=== PATIENT | female | born 1970 | race Caucasian/White ===

== ENCOUNTER 2019-08-26 15:40 | Outpatient (CLI) | payer MEDICARE, SELFPAY ==
[2019-08-26 16:03] LABS: Basophils Absolute Auto 0.1 K/mm3 (0.0-0.1); Basophils Percent Auto 0.5 % (0.2-1.2); Eosinophils Absolute Auto 0.1 K/mm3 (0-0.3); Eosinophils Percent Auto 0.4 % (0-4.4); Hematocrit 44.2 % (37.0-47.0); Hemoglobin 13.9 g/dL (12.0-15.0); Immature Granulocyte Absolute 0.05 K/mm3 (0.00-0.031); Immature Granulocyte Percent A 0.4 % (0-0.5); Lymphocytes Absolute Auto 7.48 K/mm3 (0.9-3.2); Lymphocytes Percent Auto 53.8 % (18.3-44.2); Mean Corpuscular HGB Conc 31.4 g/dl (32-36); Mean Corpuscular Hemoglobin 27.7 pg (26-34); Mean Corpuscular Volume 88.2 fl (80-100); Mean Platelet Volume 8.9 fl (7.4-10.4); Monocytes Absolute Auto 1.1 K/mm3 (0.1-0.6); Monocytes Percent Auto 7.9 % (2.6-8.5); Neutrophils Absolute Auto 5.1 K/mm3 (1.3-6.7); Platelet Count Result 350 k/mm3 (150-375); Red Blood Count 5.01 M/mm3 (4.2-5.4); Red Cell Distribution Width 15.8 % (11.5-14.5); White Blood Count 13.9 K/mm3 (4.5-10.0)
[2019-08-26 16:08] LABS: Atypical Lymphocytes Present; Platelet Estimate Adequate (Adequate)
[2019-08-26 16:49] LABS: Alanine Aminotransferase 32 U/L (4-35); Albumin Level 4.4 g/dL (3.5-5.1); Alkaline Phosphatase 118 U/L (38-126); Aspartate Amino Transferase 33 U/L (14-36); Bilirubin,Total 0.3 mg/dL (0.2-1.3); Blood Urea Nitrogen 16 mg/dL (7-17); CRP 0.6 mg/dL (<1.0); Calcium 9.7 mg/dL (8.4-10.2); Carbon Dioxide 23 mmol/L (22-30); Chloride 97 mmol/L (98-107); Estimated Glomerular Filt Rate > 60; Glucose 90 mg/dL (65-105); Lactate Dehydrogenase 485 U/L (313-618); Potassium 4.1 mmol/L (3.4-5.0); Sodium 134 mmol/L (137-145)
[2019-08-26 16:56] LABS: Erythrocyte Sedimentation Rate 15 mm/hr (0-20)
[2019-08-26 19:10] LABS: Iron 53 ug/dL (37-170)
[2019-08-26 19:33] LABS: Percent Iron Saturation 10 % (20-50)
== END 2019-08-26 15:41 | disposition home or self-care (01) ==
PROVIDERS: PCP Registered Nurse; Visit Provider Internal Medicine Hematology & Oncology
DX: D72.829 Elevated white blood cell count, unspecified (principal); R79.89 Other specified abnormal findings of blood chemistry
CPT/HCPCS: 36415; 80053; 82728; 83540; 83550; 83615; 85025; 85652; 86140; 88184

== ENCOUNTER → 2020-08-09 13:18 | Outpatient (CLI) | payer MEDICARE, SELFPAY ==
--- NOTE | ~2020-08-09 | MM_ITS ---
EXAMINATION: MM screening miguel angel BI w ivan HISTORY: Screening mammogram TECHNIQUE: Craniocaudal and mediolateral oblique 3-D tomosynthesis images were obtained and synthetic 2-D images were generated. CAD analysis was submitted and interpreted. COMPARISON: bilateral digital screening mammogram BREAST PARENCHYMAL COMPOSITION: The breasts are almost entirely fatty. FINDINGS: There is no evidence of suspicious mass, calcification, or architectural distortion to sugg est malignancy in either breast. There has been no suspicious interval change. IMPRESSION: 1. No mammographic evidence of malignancy. 2. Recommend routine screening mammography in one year. BI-RADS Category 1: Negative Reviewed, dictated and finalized at location A. OROLOGICAL ENGINEER
== END ==
PROVIDERS: PCP Registered Nurse; Visit Provider Registered Nurse
DX: Z12.31 Encounter for screening mammogram for malignant neoplasm of breast (principal)
CPT/HCPCS: 77063; 77067

== ENCOUNTER 2021-04-18 14:09 | Emergency (ER) | payer MEDICARE, SELFPAY ==
[2021-04-18 14:23] VITALS: BP 113/92; PULSE 95; RESP 18; TEMP 35.7; O2SAT 100
--- NOTE | 2021-04-18 14:32 | ED.UPPEXIN ---
HPI - Extremity Injury (Upper) General Chief Complaint: Extremity Injury, Upper Stated Complaint: Shoulder Pain Source: patient and RN notes reviewed Limitations: no limitations History of Present Illness HPI narrative: The right-handed overweight patient, on several meds including for diabetes, presents with right shoulder pain. Patient states she has a 7-day history, gradual onset upon awakening of right shoulder pain is mild, worse with motion, better at rest located mostly at the scapula. She attributes pain to carrying her grandchildren. No neck pain, fever, gait changes, numbness/weakness, but there is some radiation upward and distally. Related Data Home Medications Medication Instructions Recorded Confirmed bupropion HCl 150 mg PO DAILY 04/18/21 04/18/21 hydrochlorothiazide 25 mg PO DAILY 04/18/21 04/18/21 levonorgestrel-ethinyl estrad 1 tablet PO DAILY 04/18/21 04/18/21 [Larissia] lorazepam 1 mg PO BID 04/18/21 04/18/21 metformin See Rx Instructions .ROUTE .COMPLEX 04/18/21 04/18/21 venlafaxine 75 mg PO DAILY 04/18/21 04/18/21 zolpidem 04/18/21 Allergies Allergy/AdvReac Type Severity Reaction Status Date / Time No Known Allergies Allergy Mild Verified 09/09/09 14:08 Review of Systems Review of Systems: General/Constitutional: No weight loss,fever Eyes: N0: Redness,discharge Ears/Nose/Throat: No: Epistaxis,ear discharge Respiratory: Denies: Hemoptysis Gastrointestinal: No Vomiting, Bleeding-rectal Skin: No Lumps, eruption Neurologic: No Focal Weakness,Sz Hematologic: Denies: Petechiae/Purpura Psychiatric: No: Suicida ideationl All Other Systems: Reviewed and Negative PMFSH Comments At time of signature, agree with nursing past medical, surgical, social and family history. There is no relevant family history pertinent to the presenting complaint Exam Narrative: General Appearance: Overweight/well nourished, Conjunctiva clear Mouth/Throat: Normal appearing, Normal lips,: Supple Respiratory: Airway patent, No respiratory distress MS-shoulder: Normal strength (mostly intact, almost unlimited flexion/extension, Ir/ER by pain), Tenderness (rhomboid , with mild decreased ROM), Skin: Warm, Dry, Normal color; no AC or deltoid tenderness Neurological: A&O x3, Speech clear, CN II-XII intact Psychiatric: Normal mood, Normal affect Course Vital Signs Vital signs: Vital Signs Temperature 96.2 F L 04/18/21 14:23 Pulse Rate 95 04/18/21 14:23 Respiratory Rate 18 04/18/21 14:23 Blood Pressure 113/92 H 04/18/21 14:23 Pulse Oximetry 100 04/18/21 14:23 Temperature 96.2 F L 04/18/21 14:23 Pulse Rate 95 04/18/21 14:23 Respiratory Rate 18 04/18/21 14:23 Blood Pressure 113/92 H 04/18/21 14:23 Pulse Oximetry 100 04/18/21 14:23 Discharge Plan Discharge Clinical Impression: Left shoulder strain Qualifiers: Encounter type: initial encounter Qualified Code(s): S46.912A - Strain of unspecified muscle, fascia and tendon at shoulder and upper arm level, left arm, initial encounter Patient Disposition: Home, Self-Care Condition: Stable Instructions: Shoulder Bursitis (ED) Additional Instructions: Also try provided shoulder/rhomboid exercises Prescriptions: New prednisone 20 mg tablet 60 mg PO DAILY Qty: 15 RF: 0 acetaminophen-codeine 300-30 mg tablet 1 - 1.5 tablet PO HS PRN (Reason: pain) Qty: 10 RF: 0 No Action metformin 500 mg tablet See Rx Instructions .ROUTE .COMPLEX RF: 0 bupropion HCl 150 mg tablet sustained-release 12 hr 150 mg PO DAILY RF: 0 venlafaxine 75 mg capsule,extended release 24hr 75 mg PO DAILY RF: 0 levonorgestrel-ethinyl estrad [Larissia] 0.1-20 mg-mcg tablet 1 tablet PO DAILY RF: 0 hydrochlorothiazide 25 mg tablet 25 mg PO DAILY RF: 0 lorazepam 1 mg tablet 1 mg PO BID RF: 0 zolpidem 10 mg tablet RF: 0 Follow-up/Referrals: Patti,NEVAEH Newby [Primary Care Provider]
== END 2021-04-18 14:40 | disposition home or self-care (01) ==
PROVIDERS: Emergency Provider Emergency Medicine; PCP Registered Nurse
DX: S46.911A Strain of unspecified muscle, fascia and tendon at shoulder and upper arm level, right arm, initial encounter (principal); X50.0XXA Overexertion from strenuous movement or load, initial encounter; I10 Essential (primary) hypertension; Z98.84 Bariatric surgery status; F41.9 Anxiety disorder, unspecified; F32.9 Major depressive disorder, single episode, unspecified
CPT/HCPCS: 99213; G0463

== ENCOUNTER 2021-05-09 11:04 | Emergency (ER) | payer MEDICARE, SELFPAY ==
--- NOTE | ~2021-05-09 | XR_ITS ---
EXAMINATION: XR shoulder RT min 2V DATE: 05/09/2021 11:32 INDICATION: Right shoulder pain TECHNIQUE: AP internally and externally rotated, AP oblique externally rotated and axillary views of the right shoulder were obtained. COMPARISON: None FINDINGS: Normal alignment. No fracture.Minimal right glenohumeral and acromioclavicular osteoarthritis with t iny marginal osteophytes along the inferior aspect of the humeral head. Soft tissues are unremarkable . Visualized portions of the lungs are clear. Mild to moderate uncovertebral and facet osteoarthritis at the right side of the lower cervical spine. IMPRESSION: Minimal right acromioclavicular and glenohumeral osteoarthritis. No acute osseous abnormality. Reviewed, dictated and finalized at location A. IMPRESSION: Minimal right acromioclavicular and glenohumeral osteoarthritis. No acute osseo us abnormality.
[2021-05-09 11:12] VITALS: BP 111/69; PULSE 110; RESP 18; TEMP 35.6; O2SAT 100
--- NOTE | 2021-05-09 11:15 | ED.UPPEXIN ---
HPI - Extremity Injury (Upper) General Chief Complaint: Extremity Problem,Nontraumatic Stated Complaint: Shoulder Pain Time Seen by Provider: 05/09/21 11:15 Source: patient, RN notes reviewed and old records reviewed Mode of arrival: ambulatory Limitations: no limitations History of Present Illness HPI narrative: 50-year-old female presents to the [facility] with complaints of right shoulder pain. Patient states that she was seen a few weeks ago by And was told she had bursitis. Had been seeing a chiropractor was told she had degenerative disc disease in her neck and that is causing her shoulder pain. Has not seen her primary care provider. States that nobody is done an x-ray and was concerned. Has decreased range of motion. Able to raise arm 90 degrees both anterior and lateral. Full range of motion of the wrist and the elbow. Positive radial pulse. Sensation intact in all 5 fingers. Related Data Home Medications Medication Instructions Recorded Confirmed bupropion HCl 150 mg PO DAILY 04/18/21 04/18/21 hydrochlorothiazide 25 mg PO DAILY 04/18/21 04/18/21 levonorgestrel-ethinyl estrad 1 tablet PO DAILY 04/18/21 04/18/21 [Larissia] lorazepam 1 mg PO BID 04/18/21 04/18/21 metformin See Rx Instructions .ROUTE .COMPLEX 04/18/21 04/18/21 venlafaxine 75 mg PO DAILY 04/18/21 04/18/21 zolpidem 04/18/21 Allergies Allergy/AdvReac Type Severity Reaction Status Date / Time No Known Allergies Allergy Mild Verified 05/09/21 11:17 Review of Systems Review of Systems: All systems reviewed & are unremarkable except as noted in HPI and below Constitutional: Constitutional: Reports no additional constitutional complaints Eyes: Eyes: Reports no additional eye complaints ENT: Reports system reviewed and no additional complaints, except as documented Cardiovascular: Cardiovascular: Reports no additional cardiovascular complaints Respiratory: Respiratory: Reports no additional respiratory complaints Musculoskeletal: Musculoskeletal: Reports as per HPI Comments: Right shoulder pain Integumentary/Breasts: Skin/Breast: Reports system reviewed and no additional complaints, except as docu, Denies erythema and Denies rash Neurologic: Reports system reviewed and no additional complaints, except as documented Psychiatric: Psychiatric: Reports no additional psychiatric complaints Allergic/Immunologic: Allergic/Immunologic: Reports no additional allergic/immunologic complaints PMFSH Past Medical History Medical History (Updated 05/09/21 @ 19:45 by Yaquelin Hammond) Anxiety and depression History of high blood pressure Social History Social History (Updated 05/09/21 @ 19:45 by Yaquelin Hammond) Living arrangements: with family Gender identity (if verbalized by the patient): Female Comments At the time of my signature, I reviewed and agree with the nursing past medical, surgical, social, and family history. There is no relevant family history pertinent to the patient complaint. Exam Const: General: no acute distress, alert and ill appearing chronically Nutritional Appearance: obese Orientation/consciousness: patient oriented x3 HENMT: Head: normal to inspection Eyes: Pupils: Equal, round and reactive pupils present Neck: Neck: normal visual inspection, no lymphadenopathy and no meningeal signs Chest: Chest palpation & inspection: normal inspection of the chest Resp: Effort & Inspection: normal respiratory effort and no use of accessory muscles Auscultation: clear to auscultation bilaterally, no crackles, no rales, no rhonchi and no wheezes Cardio: Rate: regular rate Rhythm: regular rhythm Back/Spine/Pelvis: Back: no CVA tenderness Skin: General skin exam: normal color Rashes: no rashes Wounds: no wounds Neuro: General: patient oriented x3, moves all extremities, no meningeal signs and no focal motor deficits Speech: normal speech Gait exam (Neuro): Normal gait present Extrem: General: normal to
== END 2021-05-09 11:55 | disposition home or self-care (01) ==
PROVIDERS: Emergency Provider Nurse Practitioner; PCP Registered Nurse
DX: M19.011 Primary osteoarthritis, right shoulder (principal); F41.9 Anxiety disorder, unspecified; F32.A Depression, unspecified
CPT/HCPCS: 73030; 99213; G0463

== ENCOUNTER 2021-11-26 18:56 | Emergency (ER) | payer MEDICARE, SELFPAY ==
--- NOTE | ~2021-11-26 | XR_ITS ---
EXAM: XR hip LT 2V w AP pelvis, XR femur LT min 2V HISTORY: Nontraumatic pain front of left hip and thigh COMPARISON: None available FINDINGS: Normal mineralization. No fracture or dislocation. No lytic or blastic lesion. Degenerativ e change in the lumbar spine. Mild superior joint space narrowing in the hips. No erosion or perioste al change. Soft tissues within normal limits. IMPRESSION: No acute osseous finding in the pelvis, left hip or left femur. Reviewed, dictated and finalized at location K. IMPRESSION: No acute osseous finding in the pelvis, left hip or left femur.
[2021-11-26 19:07] VITALS: BP 142/84; PULSE 102; RESP 14; TEMP 36.4; O2SAT 97
[2021-11-26] MEDS: HYDROcodone/acetaminophen (*CRX) 5-325 MG TABLET 1 TAB PO (19:28)
[2021-11-26] MEDS: IBUPROFEN 600 MG TABLET PO (19:28)
--- NOTE | 2021-11-26 20:13 | ED.LOWEXIN ---
HPI - Extremity Injury (Lower) General Chief Complaint: Extremity Injury, Lower Stated Complaint: left leg pain. Time Seen by Provider: 11/26/21 19:14 Source: patient Mode of arrival: ambulatory Limitations: no limitations History of Present Illness HPI Narrative: Patient is 51 years old white female been complaining of intermittent sharp stabbing pain at the middle of the right thigh anteriorly for over 1 year, no diagnosis. Today the symptom is back but did not go anywhere. She denies any fever, chills, nausea, vomiting, chest pain, shortness of breath or back pain or urinary symptoms. Patient also denies any trauma. Related Data Home Medications Medication Instructions Recorded Confirmed bupropion HCl 150 mg PO DAILY 04/18/21 04/18/21 hydrochlorothiazide 25 mg PO DAILY 04/18/21 04/18/21 levonorgestrel-ethinyl estrad 1 tablet PO DAILY 04/18/21 04/18/21 [Larissia] lorazepam 1 mg PO BID 04/18/21 04/18/21 metformin See Rx Instructions .ROUTE .COMPLEX 04/18/21 04/18/21 venlafaxine 75 mg PO DAILY 04/18/21 04/18/21 zolpidem 04/18/21 Allergies Allergy/AdvReac Type Severity Reaction Status Date / Time No Known Allergies Allergy Mild Verified 05/09/21 11:17 Review of Systems Review of Systems: All systems reviewed & are unremarkable except as noted in HPI and below PMFSH Past Medical History Medical History Anxiety and depression History of high blood pressure Social History Social History Gender identity (if verbalized by the patient): Female Exam Narrative: General appearance: Well-developed, well-nourished Skin: Normal color Head: Normocephalic, nontraumatic Eyes: Clear conjunctiva ENT: Oropharynx normal, ears normal, nose normal Neck: Supple, nontender Chest and respiratory: Airway patent, no respiratory distress, no accessory muscle use Heart: Regular rate/rhythm Abdomen: Soft, nontender, no organomegaly, quiet bowel sounds Vascular: Normal peripheral pulses, normal capillary refill. Musculoskeletal: Normal range of motion, nontender back, left thigh examination showed no bruises, no swelling, no localized tenderness, no rash, no deformity. 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 Patient reports standing and walking make it worse, bending over and walking make it feel much. X-ray of the left hip and pelvis, left femur showed no abnormalities. Musculoskeletal spasm is my concern. Patient will be discharged on anti-inflammatory and muscle relaxant, there is no improvement in 1 week, she could need physical therapy and orthopedic consult. Vital Signs Vital signs: Vital Signs Temperature 36.4 C 11/26/21 19:07 Pulse Rate 102 H 11/26/21 19:07 Respiratory Rate 14 11/26/21 19:07 Blood Pressure 142/84 H 11/26/21 19:07 Pulse Oximetry 97 11/26/21 19:07 Temperature 36.4 C 11/26/21 19:07 Pulse Rate 102 H 11/26/21 19:07 Respiratory Rate 14 11/26/21 19:07 Blood Pressure 142/84 H 11/26/21 19:07 Pulse Oximetry 97 11/26/21 19:07 MDM - Extremity Injury (Lower) Imaging Data Radiologist's impression: Impressions Femur X-Ray 11/26/21 19:57 IMPRESSION: No acute osseous finding in the pelvis, left hip or left femur. Hip/Pelvis X-Ray 11/26/21 19:57 IMPRESSION: No acute osseous finding in the pelvis, left hip or left femur. Critical Care Time Critical Care Time Critical Care Time: No Discharge Plan
== END 2021-11-26 20:36 | disposition home or self-care (01) ==
PROVIDERS: Emergency Provider Emergency Medicine; PCP Registered Nurse
DX: M79.652 Pain in left thigh (principal); I10 Essential (primary) hypertension; F41.9 Anxiety disorder, unspecified; F32.A Depression, unspecified; Z79.84 Long term (current) use of oral hypoglycemic drugs
CPT/HCPCS: 73502; 73552; 99284; A9270

== ENCOUNTER 2023-06-12 14:01 | Emergency (ER) | payer MEDICARE, SELFPAY ==
--- NOTE | 2023-06-12 14:02 | ED.URI ---
HPI - URI/Sore Throat General Chief Complaint: Upper Respiratory Infection Stated Complaint: Bodyaches/Sinus Time Seen by Provider: 06/12/23 14:13 Source: patient, RN notes reviewed and old records reviewed Mode of arrival: ambulatory Limitations: no limitations History of Present Illness HPI Narrative: 52-year-old female presents to the [facility] with body aches and sinus congestion since waking up this morning. Reports and exposure to COVID-19. Patient is diaphoretic, complaints of generalized weakness as well. Patient reports high heart rate. States that she took NyQuil last night, DayQuil and Mucinex today Onset (ago): hour(s) Related Data Home Medications Medication Instructions Recorded Confirmed bupropion HCl 150 mg tablet,12 hr 150 mg PO DAILY 04/18/21 04/18/21 sustained-release hydrochlorothiazide 25 mg tablet 25 mg PO DAILY 04/18/21 04/18/21 lorazepam 1 mg tablet 1 mg PO BID 04/18/21 04/18/21 metformin 500 mg tablet See Rx Instructions .Route .COMPLEX 04/18/21 04/18/21 venlafaxine 75 mg capsule,extended 75 mg PO DAILY 04/18/21 04/18/21 release 24 hr zolpidem 10 mg tablet 04/18/21 mirtazapine 15 mg tablet mg 06/12/23 tirzepatide 2.5 mg/0.5 mL mg subcut 06/12/23 subcutaneous pen injector (Mounjaro) Allergies Allergy/AdvReac Type Severity Reaction Status Date / Time trazodone Allergy Hallucinati Verified 06/12/23 14:14 ng Review of Systems Review of Systems: All systems reviewed & are unremarkable except as noted in HPI and below Constitutional: Constitutional: Reports as per HPI, Reports body ache(s) and Reports fatigue Eyes: Eyes: Reports no additional eye complaints ENT: Reports as per HPI and Reports sore throat Cardiovascular: Cardiovascular: Reports no additional cardiovascular complaints, Denies chest pain and Denies dyspnea Respiratory: Respiratory: Reports no additional respiratory complaints, Denies chest congestion, Denies cough and Denies dyspnea Gastrointestinal: Gastrointestinal: Reports no additional gastrointestinal complaints, Denies abdominal pain, Denies nausea and Denies vomiting Musculoskeletal: Musculoskeletal: Reports no additional musculoskeletal complaints Integumentary/Breasts: Skin/Breast: Reports system reviewed and no additional complaints, except as docu Neurologic: Reports system reviewed and no additional complaints, except as documented Psychiatric: Psychiatric: Reports no additional psychiatric complaints Allergic/Immunologic: Allergic/Immunologic: Reports no additional allergic/immunologic complaints PMFSH Past Medical History Medical History Anxiety and depression History of high blood pressure Social History Social History Living arrangements: with family Gender identity (if verbalized by the patient): Female Comments At the time of my signature, I reviewed and agree with the nursing past medical, surgical, social, and family history. There is no relevant family history pertinent to the patient complaint. Exam Const: General: cooperative, no acute distress, well developed, alert, anxious, ill appearing acutely and chronically, uncomfortable, well nourished and obese Nutritional Appearance: well nourished and obese Orientation/consciousness: patient oriented x3 Limitations: no limitations Other: Patient diaphoretic HENMT: Head: normal to inspection Ears: hearing grossly normal bilaterally, external ears normal, TM's normal bilaterally, EAC's normal, mastoids normal and no periauricular adenopathy Face/Nose/Sinus: Normal external nose present, Normal nares present, Normal nasal mucous membranes and turbinates present, normal facial exam and face symmetric Face and sinus: normal facial exam and face symmetric Mouth: Yes Normal oral and palatal mucosa present, Yes lip normal and Yes moist mucous membranes Throat:
[2023-06-12 14:13] VITALS: BP 138/90; PULSE 140; RESP 26; TEMP 37.3; O2SAT 94
[2023-06-12 14:15] VITALS: BP 138/90; PULSE 140; RESP 26; TEMP 37.3; O2SAT 94
--- NOTE | 2023-06-12 14:19 | ECG_ITS ---
Measurements Intervals [place] Rate: 151 P: 35 RI: 123 QRS: 16 QRSD: 82 T: 17 QT: 272 QTc: 432 Interpretive Statements SINUS TACHYCARDIA LEFT ATRIAL ENLARGEMENT DELAYED PRECORDIAL R/S TRANSITION INFERIOR INFARCT, AGE INDETERMINATE BASELINE WANDER- V1 ABNORMAL ECG NO PREVIOUS ECG AVAILABLE FOR COMPARISON Electronically Signed On 06-12-2023 16:45:04 SENIOR PROJECT ARCHITECT by Harry Rabago D.O.
== END 2023-06-12 14:33 | disposition short-term general hospital (02) ==
PROVIDERS: Emergency Provider Nurse Practitioner; PCP Registered Nurse
DX: R94.31 Abnormal electrocardiogram [ECG] [EKG] (principal); R52 Pain, unspecified; F41.9 Anxiety disorder, unspecified; F32.A Depression, unspecified; I10 Essential (primary) hypertension
CPT/HCPCS: 87081; 87880; 93005; 99213; G0463

== ENCOUNTER 2023-06-12 14:46 | Emergency (ER) | payer MEDICARE, SELFPAY ==
[2023-06-12] VITALS (7 sets, daily range): BP systolic 111–148; BP diastolic 73–88; PULSE 119–155; RESP 19–20; TEMP 37.1–38.4; O2SAT 93–96
--- NOTE | ~2023-06-12 | XR_ITS ---
EXAMINATION: XR chest 2V Exam Date/Time: 06/12/2023 16:03 CALL CENTER ANALYST HISTORY: cp, cough, fever, SOB x 2 days; elev bp Comparison: 10/07/2007. RESULT: Lines, tubes, and devices: None. Lungs and pleura: Clear. Cardiomediastinal silhouette: Stable. Other: No acute osseous or upper abdominal finding. IMPRESSION: No acute cardiopulmonary process. Reviewed, dictated and finalized at location K. CENTER ANALYST
--- NOTE | ~2023-06-12 | CT_ITS ---
EXAMINATION: CTA chest PE protocol DATE: 06/12/2023 16:11 JACK FRAME TENDER INDICATION: Elevated d-dimer. TECHNIQUE: Computed tomographic angiography (CTA) of the chest was performed with 100 mL Omnipaque-35 0 intravenous contrast. The dose-length product was 963.48 mGy-cm. Maximum intensity projection 3D-re constructions of the aorta and other arteries were constructed by the technologist on a separate work station. Automated exposure control and iterative reconstruction technique were employed. COMPARISON: CT dated 09/27/2017 FINDINGS: no significant pleural or pericardial effusion. No endobronchial lesion. No pneumothorax. T here is lingular atelectasis. There is right middle lobe atelectasis.. Study is technically adequate without evidence for large central pulmonary embolism. Evaluation of pe ripheral pulmonary arteries limited by contrast bolus timing and motion artifact. There are changes o f gastric bypass surgery. Mildly elevated right diaphragm. There is a 3 mm fissural nodule on the right, likely benign. No pneu mothorax. No endobronchial lesion. Mild thoracic spondylosis. There is a low-density 1.6 cm left adre nal mass, likely benign adenoma. IMPRESSION: 1. No large central pulmonary embolism. 2: Lingular and right middle lobe atelectasis. Reviewed, dictated and finalized at location L. FRAME TENDER
--- NOTE | 2023-06-12 14:57 | ECG_ITS ---
Measurements Intervals [place] Rate: 150 P: 37 ND: 126 QRS: 22 QRSD: 77 T: 24 QT: 269 QTc: 425 Interpretive Statements SINUS TACHYCARDIA DELAYED PRECORDIAL R/S TRANSITION INFERIOR INFARCT, AGE INDETERMINATE BASELINE WANDER- I, II, AVR ABNORMAL ECG COMPARED TO ECG 06/12/2023 14:24:10 NO SIGNIFICANT CHANGES Electronically Signed On 06-12-2023 16:47:54 CARPENTER REPAIRER by Harry Rabago D.O.
--- NOTE | 2023-06-12 15:08 | ED.GENADULT ---
HPI - General Adult General Chief complaint: Weakness Stated complaint: weak, chills Time Seen by Provider: 06/12/23 15:01 History of Present Illness HPI narrative: 52-year-old female presenting to the emergency department for evaluation of generalized fatigue, body aches cough and shortness of breath. Patient does have a family member with a dentist positive for bronchitis. Patient reports that the symptoms have been ongoing for the last few days but did acutely worsened today. Patient states she has not missed any doses of her medications but does take metoprolol. Related Data Home Medications Medication Instructions Recorded Confirmed bupropion HCl 150 mg tablet,12 hr 150 mg PO DAILY 04/18/21 04/18/21 sustained-release hydrochlorothiazide 25 mg tablet 25 mg PO DAILY 04/18/21 04/18/21 lorazepam 1 mg tablet 1 mg PO BID 04/18/21 04/18/21 metformin 500 mg tablet See Rx Instructions .Route .COMPLEX 04/18/21 04/18/21 venlafaxine 75 mg capsule,extended 75 mg PO DAILY 04/18/21 04/18/21 release 24 hr zolpidem 10 mg tablet 04/18/21 mirtazapine 15 mg tablet mg 06/12/23 tirzepatide 2.5 mg/0.5 mL mg subcut 06/12/23 subcutaneous pen injector (Marques) Allergies Allergy/AdvReac Type Severity Reaction Status Date / Time trazodone Allergy Hallucinati Verified 06/12/23 14:14 ng Review of Systems Review of Systems: All systems reviewed & are unremarkable except as noted in HPI and below PMFSH Past Medical History Medical History Anxiety and depression History of high blood pressure Social History Social History Living arrangements: with family Gender identity (if verbalized by the patient): Female Exam Narrative: APPEARANCE: Well appearing, no pain, no distress, well-nourished. HEAD: normocephalic, atraumatic. EYES: PERRLA/EOMI, conjunctivae clear. NOSE: Normal no drainage EARS:TMS clear with good light reflex. THROAT: Pharynx clear, no exudate. NECK: Supple. No adenopathy, no masses. RESPIRATORY: Airway patent, respirations nonlabored. Clear to auscultation bilaterally, no rales, rhonchi, wheezing. CARDIOVASCULAR: tachycardic ABDOMINAL: Soft, nontender, nondistended, normal bowel sounds MUSCULOSKELETAL: Moves all extremities. Strength/ROM intact, No edema, No calf tenderness. NEURO: Alert. Cranial nerves II through XII intact. Grossly intact SKIN: Warm, dry. Normal Color Course Course Emergency Course: 52-year-old female presenting to the ED for evaluation increased generalized fatigue body aches cough and shortness of breath. Patient had a heart rate in the 150s upon arrival. Patient states her heart rate normally runs in the 120s and she has had extensive evaluation by Cardiology for this. Patient is tachycardic but is not hypoxic. Patient has a white count of 18.6. Hemoglobin is stable at 15.2. Patient's D-dimer was elevated the CTA was negative for acute pulmonary embolism. Patient was treated with 2 L IV fluid. Patient's lactic acid was 2.1. Patient CTA and chest CT shows no evidence of pneumonia. Patient was offered admission for further workup due to her leukocytosis and tachycardia the patient states he is on is tachycardic and prefers to be discharged home. Patient will be started on antibiotics for suspected pneumonia. Patient was updated with results of workup and was encouraged to have close follow-up with her primary care physician. Vital Signs Vital signs: Vital Signs Temperature 101.1 F H 06/12/23 14:50 Pulse Rate 155 H 06/12/23 14:50 Respiratory Rate 20 06/12/23 14:50 Blood Pressure 148/85 H 06/12/23 14:50 Pulse Oximetry 96 06/12/23 14:50 Oxygen Delivery Room Air 06/12/23 14:50 Temperature 98.8 F 06/12/23 15:48 Pulse Rate 119 H 06/12/23 17:51 Respiratory Rate 20 06/12/23 17:51 Blood Pressure 111/73 06/12/23 1
[2023-06-12] MEDS: SODIUM CHLORIDE 0.9% IV 1,000 ML 999 ML IV CONT ×2 (15:11)
[2023-06-12] MEDS: ACETAMINOPHEN 500 MG TABLET 1000 MG PO (15:11)
[2023-06-12] MEDS: IBUPROFEN 400 MG TABLET 800 MG PO (15:11)
[2023-06-12 15:19] LABS: Basophils Absolute Auto 0.1 K/mm3 (0.0-0.1); Basophils Percent Auto 0.3 % (0.2-1.2); Eosinophils Percent Auto 0.2 % (0-4.4); Hematocrit 48.2 % (37.0-47.0); Hemoglobin 15.2 g/dL (12.0-15.0); Immature Granulocyte Absolute 0.16 K/mm3 (0.00-0.031); Immature Granulocyte Percent A 0.9 % (0-0.5); Lymphocytes Absolute Auto 2.86 K/mm3 (0.9-3.2); Lymphocytes Percent Auto 15.4 % (18.3-44.2); Mean Corpuscular HGB Conc 31.5 g/dl (32-36); Mean Corpuscular Hemoglobin 31.9 pg (26-34); Mean Platelet Volume 8.9 fl (7.4-10.4); Monocytes Absolute Auto 2.1 K/mm3 (0.1-0.6); Monocytes Percent Auto 11.3 % (2.6-8.5); Neutrophils Absolute Auto 13.4 K/mm3 (1.3-6.7); Neutrophils Percent Auto 71.9 % (45.5-73.1); Platelet Count Result 292 k/mm3 (150-375); Red Blood Count 4.77 M/mm3 (4.2-5.4); Red Cell Distribution Width 15.4 % (11.5-14.5); White Blood Count 18.6 K/mm3 (4.5-10.0)
[2023-06-12 15:28] LABS: Lactic Acid Reflex 2.1 mmol/L (0.7-2.0)
[2023-06-12 15:31] LABS: INR 0.9; Partial Thromboplastin Time 27.4 SECONDS (22.3-36.8)
[2023-06-12 15:32] LABS: Alanine Aminotransferase 50 U/L (6-35); Albumin Level 4.6 g/dL (3.5-5.1); Alkaline Phosphatase 120 U/L (38-126); Anion Gap 12 mmol/L (8-16); Aspartate Amino Transferase 50 U/L (14-36); Bilirubin,Total 0.5 mg/dL (0.2-1.3); Blood Urea Nitrogen 10 mg/dL (7-17); Calcium 9.5 mg/dL (8.4-10.2); Carbon Dioxide 29 mmol/L (22-30); Chloride 95 mmol/L (98-107); Estimated CRCL calculation 121 ml/min; Estimated Glomerular Filt Rate > 60; Glucose 130 mg/dL (65-110); Potassium 3.9 mmol/L (3.4-5.0); Sodium 136 mmol/L (137-145)
[2023-06-12 15:38] LABS: D Dimer 0.69 ug/mL (<0.48)
[2023-06-12 15:42] LABS: NT Pro B Type Natriuretic Pept 193 pg/mL (19.9-100); Troponin I < 0.012 ng/mL (0.000-0.034)
--- NOTE | 2023-06-12 15:52 | PC.NURSE ---
Pt taken for CT at this time
[2023-06-12] MEDS: METOPROLOL TARTRATE INJ 5 MG/5 ML VIAL IV PUSH (16:29)
[2023-06-12] MEDS: AZITHROMYCIN 250 MG TABLET 500 MG PO (17:21)
[2023-06-12] MEDS: AMOXICILLIN/CLAVULANATE K 875-125 MG TAB 1 TABLET PO (17:46)
[2023-06-12 18:18] LABS: Reflex Lactic Acid Yes or No Add Lactic
[2023-06-12 20:49] LABS: Influenza A QL RT-PCR Positive (Negative); Influenza B QL RT-PCR Negative (Negative); RSV RNA, RT-PCR Negative (Negative); SARS-CoV-2 RNA PCR Negative (Negative)
== END 2023-06-12 17:53 | disposition home or self-care (01) ==
PROVIDERS: Emergency Provider Emergency Medicine; PCP Registered Nurse
DX: J10.00 Influenza due to other identified influenza virus with unspecified type of pneumonia (principal); J18.9 Pneumonia, unspecified organism; R00.0 Tachycardia, unspecified; Z20.822 Contact with and (suspected) exposure to COVID-19; I10 Essential (primary) hypertension; F41.9 Anxiety disorder, unspecified; F32.A Depression, unspecified; R94.31 Abnormal electrocardiogram [ECG] [EKG]; Z79.84 Long term (current) use of oral hypoglycemic drugs; Z79.85 Long-term (current) use of injectable non-insulin antidiabetic drugs
CPT/HCPCS: 36415; 71046; 71275; 80053; 83605; 83880; 84484; 85025; 85380; 85610; 85730; 87040; 87081; 87637; 87880; 93005; 96361; 96374; 99213; 99284; A9270; G0463; J7030; Q9967

== ENCOUNTER 2024-07-06 10:41 | Inpatient (IN) | payer MEDICARE, SELFPAY ==
[2024-07-06] VITALS (47 sets, daily range): BP systolic 71–142; BP diastolic 29–97; PULSE 84–115; RESP 13–27; TEMP 36.1–37.1; O2SAT 90–100; BMI 42.3
--- NOTE | ~2024-07-06 | XR_ITS ---
EXAMINATION: XR stent kub - surgery DATE: 07/06/2024 14:50 WOOD GOUGER INDICATION: SEPTIC STONE, STENT PLACEMENT, RIGHT . TECHNIQUE: 3 fluoroscopic images of the abdomen and pelvis were obtained during right retrograde pyel ography with stent placement. I was not present during the procedure. Fluoroscopy exposure time was 4 0.3 seconds. Air Kerma 29.95 mGy. DAP 1.26 mGym2. COMPARISON: CT cap, same date FINDINGS/IMPRESSION: Fluoroscopic documentation of right retrograde pyelography with stent placement. Please refer to the operative note for complete procedural details . Reviewed, dictated and finalized at location K. GOUGER
--- NOTE | ~2024-07-06 | CT_ITS ---
Non-contrast Head CT History: Altered mental status Technique: Axial non-contrast imaging of the brain was performed. Dose reduction technique was used on this scan by utilizing automated exposure control and iterative reconstruction technique. The dose -length product (DLP) was 681.00 mGy-cm. Findings: There is no evidence of intracranial hemorrhage, mass lesion, or acute infarct. Brain par enchyma appears normal. The ventricles and subarachnoid spaces are normal in size. The calvarium ap pears normal. The visualized paranasal sinuses and mastoid air cells are clear. Impression: No significant abnormality seen. Reviewed, dictated and finalized at location . F JUVENILE PROBATION OFFICER Impression: No significant abnormality seen.
--- NOTE | ~2024-07-06 | XR_ITS ---
Portable chest x-ray Comparison: 06/12/2023 Clinical History: Altered mental status Findings: There is central congestive change and possible mild central/left basilar pulmonary edema. Cardiomediastinal silhouette is stable. Bones and soft tissues are unremarkable. Impression: Central congestive change and possible mild central and left basilar pulmonary edema. Reviewed, dictated and finalized at [facility]. S BLOCK BENDER Impression: Central congestive change and possible mild central and left basilar pulmonary edema.
--- NOTE | ~2024-07-06 | US_ITS ---
US renal BI Ordering provider: Brenda Gomez PA-C History: . Acute kidney injury, hydronephrosis . Comparison: None. Technique: Ultrasound bilateral kidneys. Findings: RIGHT KIDNEY: Measures 10.9x 5.2x 5.4 cm in length which is normal in size. No renal cysts. No renal mass or visualized echogenic stones. Otherwise, normal echotexture and contour. Mild hydronephrosis. Normal renal cortical thickness. LEFT KIDNEY: Measures 12.9x 4.5x 5.4 cm in length which is normal in size. No renal cysts. No renal m ass or visualized echogenic stones. Otherwise, normal echotexture and contour. No hydronephrosis. Nor mal renal cortical thickness. Hypodensity seen which may represent a Dromedary hump. Follow-up advised. Right adnexal cystic mass measuring 14.3 cm. BLADDER: Underfilled with Jones's catheter. IMPRESSION: Mild right hydronephrosis. Right adnexal cystic mass measuring 14.3 cm. Further evaluation advised. Reviewed, dictated and finalized at location A. GYN
--- NOTE | ~2024-07-06 | CT_ITS ---
CT ANGIOGRAM NECK AND HEAD History: Altered mental status. Technique: Serial spiral axial images through the head and neck were obtained during arterial phase I V injection of 100 cc of Omnipaque 350. 3-D postprocessing and MIP images were then reconstructed on the remote workstation. Dose reduction technique was used on this scan by utilizing automated exposur e control and iterative reconstruction technique. The dose-length product (DLP) was 1194.63 mGy-cm. CTA neck findings: Bilateral vertebral arteries are patent. Bilateral common carotid, internal carot id, and external carotid arteries are patent. No large vessel occlusion or stenosis. No aneurysm. The proximal right internal carotid artery demonstrates 0% stenosis relative to the normal distal artery lumen diameter. The proximal left internal carotid artery demonstrates 0% stenosis relative to the n ormal distal artery lumen diameter. CTA head findings: Distal vertebral arteries, basilar artery, and posterior cerebral arteries are pat ent. Distal internal carotid arteries, middle cerebral arteries, and anterior cerebral arteries are p atent. No large vessel occlusion or stenosis. No aneurysm. Impression: No significant vascular abnormality. Reviewed, dictated and finalized at location . RETTE AND FILTER CHIEF INSPECTOR Impression: No significant vascular abnormality.
--- NOTE | ~2024-07-06 | XR_ITS ---
XR abdomen/kub 1V 07/08/2024 14:43 INDICATION: Right ureteral stent follow-up TECHNIQUE: KUB COMPARISON: 07/06/2024 FINDINGS: Bowel gas pattern is normal. There is a right ureteral stent in expected position. There ar e pelvic phleboliths. There is no evidence of free air, mass, organomegaly, ascites or obstruction. No abnormal calculi are seen. The bones appear intact. IMPRESSION: 1: Right internal ureteral stent in expected position.. Reviewed, dictated and finalized at location B. LE PROGRAMMER
--- NOTE | ~2024-07-06 | CT_ITS ---
Clinical Indication: Altered mental status CT Scan of the Chest, Abdomen, and Pelvis with Contrast: Technique: Contiguous sections were acquired throughout the chest, abdomen, and pelvis after intraven ous administration of 100 cc of Omnipaque 350. Dose reduction technique was used on this scan by maurice adair automated exposure control and iterative reconstruction technique. The dose-length product (DL P) was 1757.32 mGy-cm. Comparison: 06/12/2023 Findings: There is no evidence of any significant mediastinal, hilar or axillary lymphadenopathy. The mediastin al soft tissues and vascular structures appear normal. There is no evidence of pleural or pericardial effusion. The lungs are clear. No pulmonary nodules or infiltrates are noted. The liver, spleen, pancreas, adrenal glands, and left kidney are within normal limits. Gallbladder ab sent. There is a 9 mm round stone at the proximal to mid right ureter, with mild to moderate right hy dronephrosis is level. No evidence of aortic aneurysm. No lymphadenopathy. No bowel obstruction or bowel wall thickening. There is no evidence to suggest acute appendicitis. Urinary bladder is unremarkable. There is a 14.6 x 12.5 cm simple appearing right ovarian cyst. Urina ry bladder unremarkable. No ascites. Impression: 9 mm proximal to mid right ureteral stone with mild to moderate right hydroureteronephrosis to this l evel. 14.6 cm simple appearing right ovarian cystic mass. Gynecological follow-up advised. Reviewed, dictated and finalized at location . OR PEOPLESOFT DEVELOPER Impression: 9 mm proximal to mid right ureteral stone with mild to moderate right hydrouret eronephrosis to this level. 14.6 cm simple appearing right ovarian cystic mass. Gynecological follow-up adv ised.
--- NOTE | 2024-07-06 10:50 | ECG_ITS ---
Test Date: 2024-07-06 10:53:06 Measurements Intervals [place] Rate: 84 P: 34 [place]: 180 QRS: -2 QRSD: 101 T: -2 QT: 419 QTc: 498 Interpretive Statements SINUS RHYTHM POSSIBLE LEFT ATRIAL ENLARGEMENT [-0.1mV P WAVE IN V1/V2] POSSIBLE ANTERIOR MYOCARDIAL INFARCTION , OF INDETERMINATE AGE [30 ms Q WAVE IN V3/V4, OR R < 0.2 mV IN V4] No previous ECG available for comparison Electronically Signed On 07-06-2024 22:02:35 FURNITURE FINISHER APPRENTICE by Emanuel Devi M.D.
[2024-07-06 11:06] LABS: Alveolar/Arterial O2 Gradient 43.6 mmHg; Base Excess ABG -4.3 mEq/l (+/-2.0); Fractional Inspired Oxygen 21 %; HCO3 ABG 20.4 mEq/l (22.0-26.0); Oxygen Content ABG 17.7 %vol (16.0-22.0); Oxygen Saturation ABG 91.3 % (95.0-100.0); Oxyhemoglobin 89.2 % THb (90.0-100.0); PCO2 ABG 36.6 mmHg (35.0-45.0); PO2 ABG 62.3 mmHg (80.0-100.0); PO2 FiO2 Ratio Arterial Blood 2.97 %; Total Hemoglobin 14.1 g/dL (12.0-18.0); pH ABG 7.364 (7.350-7.450)
[2024-07-06 11:07] LABS: Device ROOM AIR; Modified Allen's Test Pass; Site Drawn RIGHT RADIAL
[2024-07-06 11:14] LABS: Hematocrit 41.7 % (37.0-47.0); Hemoglobin 14.1 g/dL (12.0-15.0); Mean Corpuscular HGB Conc 33.8 g/dl (32-36); Mean Corpuscular Hemoglobin 33.3 pg (26-34); Mean Corpuscular Volume 98.6 fl (80-100); Mean Platelet Volume 8.7 fl (7.4-10.4); Platelet Count Result 400 k/mm3 (150-375); Red Blood Count 4.23 M/mm3 (4.2-5.4); Red Cell Distribution Width 14.5 % (11.5-14.5); White Blood Count 24.7 K/mm3 (4.5-10.0)
[2024-07-06 11:24] LABS: Alanine Aminotransferase 24 U/L (6-35); Albumin Level 4.1 g/dL (3.5-5.1); Alkaline Phosphatase 96 U/L (38-126); Anion Gap 11 mmol/L (4-12); Aspartate Amino Transferase 28 U/L (14-36); Bilirubin,Total 0.3 mg/dL (0.2-1.3); Blood Urea Nitrogen 29 mg/dL (7-17); Calcium 9.4 mg/dL (8.4-10.2); Carbon Dioxide 20 mmol/L (22-30); Chloride 108 mmol/L (98-107); Estimated CRCL calculation 55 ml/min; Estimated Glomerular Filt Rate 43; Ethanol < 10 mg/dL (<10); Glucose 177 mg/dL (65-110); Lipase 130 U/L (23-300); Magnesium 2.2 mg/dL (1.6-2.3); Potassium 3.6 mmol/L (3.4-5.0); Sodium 139 mmol/L (137-145)
[2024-07-06 11:25] LABS: Lactic Acid Reflex 2.8 mmol/L (0.7-2.0)
[2024-07-06 11:25] LABS: INR 0.9; Partial Thromboplastin Time 20.4 Seconds (22.3-36.8); Prothrombin Time 12.9 Seconds (11.1-14.7)
[2024-07-06] MEDS: ONDANSETRON INJ 4 MG/2 ML VIAL IV PUSH (11:26)
[2024-07-06] MEDS: SODIUM CHLORIDE 0.9% IV 1,000 ML 999 ML IV CONT ×5 (11:26→15:30)
[2024-07-06 11:31] LABS: Add Urine Microscopic? YES; Amphetamine Screen Urine Negative (Negative); Appearance Urine Cloudy (Clear); Bacteria Urine None Seen /hpf; Barbiturate Screen Urine Negative (Negative); Benzodiazepines Screen Urine Negative (Negative); Bilirubin Urine Negative (Negative); Blood Urine Non-Hemolyzed Trace (Negative); Cannabinoid Screen Urine Negative (Negative); Cocaine Screen Urine Negative (Negative); Color Urine Yellow (Yellow); Glucose Urine UA Negative (Negative); Ketones Urine Negative (Negative); Leukocyte Esterase Ur 1+ LEU/UL (Negative); Methadone Screen Urine Negative (Negative); Need Manual Microscopic Reviewed; Nitrate Urine Negative (Negative); Opiate Screen Urine Negative (Negative); Phencyclidine Screen Urine Negative (Negative); Protein Urine Negative (Negative); Specific Grav Ur 1.023 (1.001-1.035); Squamous Epithelial Cell Urine Occasional /hpf (Few); Urobilinogen Urine 0.2 mg/dL (<2.0); WBC Urine 21-50 /hpf (0-3); pH Urine 5.5 (5.0-9.0)
--- NOTE | 2024-07-06 11:31 | PC.NURSE ---
Pt at bedside for further history. PT states this AM she was acting her baseline getting ready for religious with the grandkids. All of a sudden, the pt started having N/V, hallucinations, acting altered. reports pt had all the pill in a tissue box container spilled around. States she is normally on top of her meds. Has never mentioned ideas of SI or OD. Unsure if pt had misconsumption of regular home meds. Ems reports they were able to identify 4 pill bottles but unsure how many pills were originally in there or how many she consumed. The bottles with ordered dosages are as follows: Lorazepam 1 mg Pantoprazole 20mg Hydroxyzine 25mg Zolpidem 10mg
[2024-07-06 11:34] LABS: Band Neutrophils Percent 8 % (0-6); Lymphocytes Absolute Manual 3.95 K/mm3 (1.1-4.5); Lymphocytes Percent Manual 16 % (18-44); Monocytes Absolute Manual 0.98 K/mm3 (0.1-0.90); Monocytes Percent Manual 4 % (3-9); Neutrophils Absolute Manual 19.76 K/mm3 (1.7-7.2); Neutrophils Percent Manual 72 % (46-73); Platelet Estimate Increased (Adequate); Schistocytes None Seen; Total Cells Counted 100
[2024-07-06 11:36] LABS: NT Pro B Type Natriuretic Pept 107 pg/mL (19.9-100); Troponin I < 0.012 ng/mL (0.000-0.034)
[2024-07-06 11:52] LABS: Influenza A QL RT-PCR Negative (Negative); Influenza B QL RT-PCR Negative (Negative); RSV RNA, RT-PCR Negative (Negative); SARS-CoV-2 RNA PCR Negative (Negative)
[2024-07-06 11:57] LABS: Procalcitonin 0.2 ng/mL
--- NOTE | 2024-07-06 12:22 | PC.NURSE ---
Pt more responsive. Pt alert to verbal stimuli, oriented to self, denies any pain. Pt able to state it is almost [place], c/o nausea.
[2024-07-06] MEDS: PROCHLORPERAZINE EDISYLATE 10 MG/2 ML VIAL IV PUSH (13:12)
[2024-07-06] MEDS: CEFEPIME 2 GM/NS 50 ML 2 GM/50 ML BAG IVPB (14:00)
[2024-07-06 14:11] LABS: Reflex Lactic Acid Yes or No Add Lactic
--- NOTE | 2024-07-06 14:15 | P.HP_ITS ---
H&P: HPI History of Present Illness Date/Time: 07/06/24 14:45 Chief Complaint: Decreased levels of responsiveness. Narrative: This is a 53-year-old female with history of kidney stones, hypertension, type 2 diabetes mellitus, chronic back pain, anxiety, and depression who presented to the emergency department via EMS from home with decreased levels of responsiveness. The patient is somnolent but arousable at the time of my evaluation however she cannot provide a good history and a majority the following is obtained from her . She was in her usual state of health when she got up this morning however as the morning progressed she seemed confused and thought she was hallucinating however she told him that she was ?having a conversation with Pranav.? Shortly thereafter she seemed to be asleep however was unable to arouse her though she was responsive to painful stimuli. Emergency services were summoned and on EMS arrival they reportedly found multiple empty pill bottles surrounding the patient and they gave her Narcan with no improvement; glucose at that time was 160. According to , the patient has been is a majority of her time in bed and has her medications at bedside. He found ?a mess of pills? on the bed and on the bedside table and he presumes that they were spilled which is not unusual for her. The patient tells me that she took her medications this morning and not more than what she is prescribed. remarks that she has been complaining of increasing back pain over the course of a week for which she has been taking ibuprofen without much benefit. He also states that she finished a course of antibiotics recently for ?laryngitis? and though symptoms have essentially resolved. She is able to tell me that she feels generally unwell. She denies fever, headache, neck ache, sore throat, cough, chest pain, shortness of breath, nausea, vomiting, diarrhea, dysuria, and hematuria. She also denies fall, head trauma, loss of consciousness, syncope, near syncope, focal weakness, paresthesias. There were no reports of facial asymmetry or slurred speech. In the ED: Blood pressures were stable on arrival but gradually declined to as low as 71/50. She has been afebrile since arrival. Labs were significant for WBC count of 24.7 with a% bands, BUN 29, creatinine 1.30, lactic acid 2.8, procalcitonin 0.2. Urinalysis was positive for 1+ leukocyte esterase, 6 to 10 RBC, 21 to 50 WBC. She was negative for influenza, RSV, COVID, and strep. Urine drug screen was negative. Ethyl alcohol level was undetectable. Head CT and CTA of the head and neck were without acute findings. CT of the chest, abdomen, and pelvis showed a 9 mm proximal to mid right ureteral stone with [id number] right hydroureteronephrosis, and a 14.6 cm simple appearing right ovarian cystic mass. She was given 3 L crystalloid bolus with improvement her blood pressures and she was taken to the OR where she underwent cystoscopy with right retrograde pyelogram and placement of right ureteral stent. She was brought to the ICU postoperatively as she was hypotensive however noninvasive cardiac output monitoring showed that she was fluid responsive and her blood pressures continue to improve with hydration. Review of Systems Review of Systems: 12 systems were reviewed and are negativ e except for as per HPI. [facility] Past Medical History Medical History Type 2 diabetes mellitus Chronic back pain Kidney stones Chronic GERD Hypertension Anxiety and depression Surgical History Surgical History History of gastric bypass History of ureter stent History of cholecystectomy Family History Family History Mother Alcohol abuse Sibling Alcohol abuse Other Family history non-contributory Social History Social History (Updated 07/06/24 @ 22:21 by Brenda Gomez PA-C) Social History: Surrogate medical decision maker: Miguel Evangelista, spouse. Code status: Full code. Smoking status: Never smoker Second hand tobacco smoke exposure: No Alcohol intake: never Substance use: never Substance use type: does not use Do You Feel Safe in your Home?: Yes Lack of Transportation: No Lack of Food: Never True Current Housing: I Have Housing Concerned About Future Housing: No Difficulty Paying Gas/Electric Bills: No Difficulty Paying for Meds: No Currently Unemployed: No Education: Associate Degree Difficulty w/ Childcare or Family Care: No Additional living arrangements comments: Lives with , his 2 sons, and sister in [place]. 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 Spiritual care concerns: No Meds Home Medications and Allergies Home Medications ?Medication ?Instructions ?Recorded ?Confirmed ?Type bupropion HCl 150 mg tablet,12 hr 150 mg PO DAILY 04/18/21 07/06/24 History sustained-release hydrochlorothiazide 25 mg tablet 25 mg PO DAILY 04/18/21 07/06/24 History lorazepam 1 mg tablet 1 mg PO BID 04/18/21 07/06/24 History metformin 500 mg tablet See Rx Instructions .Route .COMPLEX 04/18/21 07/06/24 History venlafaxine 75 mg capsule,extended 75 mg PO DAILY 04/18/21 07/06/24 History release 24 hr zolpidem 10 mg tablet 10 mg PO HS sleep 04/18/21 07/06/24 History tirzepatide 2.5 mg/0.5 mL 12.5 mg subcut WEEKLY 06/12/23 07/06/24 History subcutaneous pen injector (Marques) amlodipine 5 mg tablet 5 mg PO DAILY Hypertension 07/06/24 07/06/24 History estradiol 0.05 mg/24 hr semiweekly 0.075 mg transdermal .twice weekly 07/06/24 07/06/24 History transdermal patch (Marlys) gabapentin 100 mg capsule 100 mg PO TID 07/06/24 07/06/24 History hydroxyzine HCl 25 mg tablet 25 mg PO BID PRN anxiety 07/06/24 07/06/24 History ibuprofen 800 mg tablet 800 mg PO TID PRN pain 07/06/24 07/06/24 History lisinopril 40 mg tablet 40 mg PO DAILY Hypertension 07/06/24 07/06/24 History methocarbamol 750 mg tablet 750 mg PO TID PRN pain, muscle 07/06/24 07/06/24 History spasms metoprolol tartrate 100 mg tablet 100 mg PO BID 07/06/24 07/06/24 History pantoprazole 20 mg tablet,delayed 20 mg PO DAILY 07/06/24 07/06/24 History release progesterone micronized 200 mg 200 mg PO HS 07/06/24 07/06/24 History capsule Allergies Allergy/AdvReac Type Severity Reaction Status Date / Time olanzapine (From Zyprexa) AdvReac Agitated Verified 07/06/24 16:38 trazodone AdvReac Hallucinati Verified 07/06/24 11:27 ng Vital Signs Vital Signs - 24 hr 07/06/24 10:41 07/06/24 10:48 07/06/24 10:49 Temperature 97 F L Pulse Rate 84 86 86 Respiratory Rate 18 14 15 Blood Pressure 103/69 103/69 Pulse Oximetry 93 90 92 Oxygen Delivery Room Air Oxygen Flow Rate 07/06/24 11:00 07/06/24 11:01 07/06/24 11:15 Temperature Pulse Rate 86 87 85 Respiratory Rate 20 18 17 Blood Pressure 102/54 L 90/53 L Pulse Oximetry 92 93 93 Oxygen Delivery Oxygen Flow Rate 07/06/24 11:16 07/06/24 11:30 07/06/24 11:47 Temperature Pulse Rate 84 84 Respiratory Rate 18 13 Blood Pressure Pulse Oximetry 97 98 100 Oxygen Delivery Nasal Cannula Oxygen Flow Rate 2 07/06/24 11:48 07/06/24 11:49 07/06/24 12:00 Temperature Pulse Rate 84 84 85 Respiratory Rate 17 14 20 Blood Pressure 94/55 L 88/58 L Pulse Oximetry 97 96 94 Oxygen Delivery Oxygen Flow Rate 07/06/24 12:15 07/06/24 12:16 07/06/24 12:58 Temperature Pulse Rate 85 84 85 Respiratory Rate 19 19 17 Blood Pressure 84/42 L 90/60 L Pulse Oximetry 95 96 Oxygen Delivery Oxygen Flow Rate 07/06/24 13:00 07/06/24 13:01 07/06/24 13:05 Temperature Pulse Rate 86 86 87 Respiratory Rate 15 16 17 Blood Pressure 76/54 L 80/53 L Pulse Oximetry 99 Oxygen Delivery Oxygen Flow Rate 07/06/24 13:13 07/06/24 13:15 07/06/24 13:16 Temperature Pulse Rate 87 86 86 Respiratory Rate 13 15 17 Blood Pressure 81/55 L 82/52 L Pulse Oximetry 100 100 98 Oxygen Delivery Oxygen Flow Rate 07/06/24 13:20 07/06/24 13:21 07/06/24 13:25 Temperature Pulse Rate 87 87 87 Respiratory Rate 20 16 15 Blood Pressure 74/42 L 73/44 L Pulse Oximetry 95 95 97 Oxygen Delivery Oxygen Flow Rate 07/06/24 13:30 07/06/24 13:31 07/06/24 13:33 Temperature Pulse Rate 87 86 86 Respiratory Rate 18 14 16 Blood Pressure 72/43 L 71/50 L Pulse Oximetry 93 96 91 Oxygen Delivery Oxygen Flow Rate 07/06/24 13:35 07/06/24 13:40 07/06/24 13:42 Temperature Pulse Rate 86 90 86 Respiratory Rate 18 19 17 Blood Pressure 74/40 L 74/44 L 90/41 L Pulse Oximetry 92 95 95 Oxygen Delivery Oxygen Flow Rate 07/06/24 13:45 07/06/24 13:46 07/06/24 13:50 Temperature Pulse Rate 86 86 87 Respiratory Rate 16 19 14 Blood Pressure 75/45 L 88/58 L Pulse Oximetry 94 96 95 Oxygen Delivery Oxygen Flow Rate 07/06/24 13:55 07/06/24 14:00 07/06/24 14:05 Temperature Pulse Rate 88 88 96 Respiratory Rate 17 19 17 Blood Pressure 98/55 L 87/54 L 90/60 L Pulse Oximetry 94 98 Oxygen Delivery Oxygen Flow Rate Exam Narrative: General: Ill-appearing female supine in bed. Weight: 111.7 kg. BMI: 39.7. HEENT: Normocephalic, atraumatic. PERRL, EOMI. Sclera anicteric. Conjunctiva mildly injected. Tacky mucous membranes. Crowded oropharynx. Neck: Supple. Exam limited due to neck circumference. Respiratory: Respirations are nonlabored. Lung sounds are diminished due to poor effort but are otherwise clear. Cardiovascular: Regular rate and rhythm with S1-S2. Gastrointestinal: Abdomen is soft, morbidly obese, and nondistended with hypoactive bowel sounds. Mild tenderness to palpation over the right flank. No guarding or rebound tenderness. Skin: Warm and dry. Normal capillary refill. Hands and feet are well perfused. Extremities: No cyanosis, clubbing, or edema. Radial and pedal pulses intact. Neurological: She is somnolent but easily arousable and is alert and oriented x4. Cranial nerves 2-12 are grossly intact. Speech is clear. No facial asymmetry. 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 Generally weak without obvious focal findings. Psychiatric: Difficult to assess at this time given her somnolence. H&P: Results Labs Labs: Short CBC 07/06/24 Range/Units 11:05 WBC 24.7 H (4.5-10.0) K/mm3 Hgb 14.1 (12.0-15.0) g/dL Hct 41.7 (37.0-47.0) % Plt Count 400 H (150-375) k/mm3 BMP 07/06/24 11:05 Sodium 139 Potassium 3.6 Chloride 108 H Carbon Dioxide 20 L BUN 29 H D Creatinine 1.30 H Glucose 177 H Calcium 9.4 Cardiac Enzymes 07/06/24 Range/Units 11:05 Troponin I < 0.012 (0.000-0.034) ng/mL Liver Function 07/06/24 Range/Units 11:05 Total Bilirubin 0.3 (0.2-1.3) mg/dL AST 28 (14-36) U/L ALT 24 (6-35) U/L Alkaline Phosphatase 96 (38-126) U/L Albumin 4.1 (3.5-5.1) g/dL Urine 07/06/24 Range/Units 11:04 Urine Color Yellow (Yellow) Urine Appearance Cloudy H (Clear) Urine pH 5.5 (5.0-9.0) Ur Specific [place] 1.023 (1.001-1.035) Urine Protein Negative (Negative) mg/dL Urine Glucose (UA) Negative (Negative) mg/dL Imaging Head CT 07/06/24 12:03 Impression: No significant abnormality seen. Chest X-Ray 07/06/24 12:04 Impression: Central congestive change and possible mild central and left basilar pulmonary edema. Head/Neck CTA 07/06/24 12:50 Impression: No significant vascular abnormality. Chest/Abdomen/Pelvis CT 07/06/24 12:52 Impression: 9 mm proximal to mid right ureteral stone with mild to moderate right hydroureteronephrosis to this level. 14.6 cm simple appearing right ovarian cystic mass. Gynecological follow-up advised. Assessment and Plan Assessment and plan (1) Sepsis: Code(s): A41.9 - Sepsis, unspecified organism Status: Acute Assessment and Plan: Patient meets sepsis criteria with hypotension, tachycardia, tachypnea, acute kidney injury, and lactic acidosis. Source of infection is likely a septic ureteral stone. Blood pressures are improving with IV fluid rehydration. Blood and urine cultures have been obtained and are pending. (2) Hydronephrosis with urinary obstruction due to ureteral calculus: Code(s): N13.2 - Hydronephrosis with renal and ureteral calculous obstruction Status: Acute Assessment and Plan: Status post cystoscopy with right retrograde pyelogram and right ureteral stent placement. (3) Acute kidney injury: Code(s): N17.9 - Acute kidney failure, unspecified Status: Acute Assessment and Plan: Likely due to a combination of sepsis, obstructing ureteral stone, and hypoperfusion from hypotension. She has been taking ibuprofen for increasing back pain which could be contributing as well. Renally dose all medications and avoid nephrotoxic agents. Monitor strict I/O and daily weights. Renal ultrasound has been ordered and is pending. (4) Encephalopathy: Code(s): G93.40 - Encephalopathy, unspecified Status: Acute Assessment and Plan: Patient was encephalopathic on presentation, likely due to sepsis, infection, and hypotension. Brain CT and CT of the head and neck were without acute findings and she has no focal findings on exam. Postoperatively she is alert and oriented x4; continue q.4 neurologic checks. (5) Right ovarian cyst: Code(s): N83.201 - Unspecified ovarian cyst, right side Status: Acute Assessment and Plan: 14.6 cm simple appearing right ovarian cystic mass noted on CT; gynecologic follow-up advised as an outpatient. (6) Hypertension: Code(s): I10 - Essential (primary) hypertension Status: Acute Assessment and Plan: Antihypertensives are currently on hold given hypotension as detailed above. (7) Chronic back pain: Code(s): M54.9 - Dorsalgia, unspecified; G89.29 - Other chronic pain Status: Acute Assessment and Plan: Analgesics available as needed though will be careful given soft blood pr essures. (8) Type 2 diabetes mellitus: Code(s): E11.9 - Type 2 diabetes mellitus without complications Status: Acute Assessment and Plan: Hold oral antidiabetic medications for now. Initiate sliding scale insulin, Accu-Cheks, and hypoglycemic protocol. Check hemoglobin A1c. Quality VTE Prophylaxis VTE prophylaxis: mechanical ordered If No VTE Prophylaxis Answer both mechanical and pharmacologic: Reason no pharmacologic proph: medical contraindication (going to OR today) Hospitalist MIPS Advance Care Plan I have confirmed that the patient's Advanced Care Plan is present, code status is documented, or surrogate decision maker is listed in patient medical record.: Yes Medication Reconciliation I have utilized all available resources to obtain, update and review the patients current medications (includes all prescriptions, OTC, herbals, cannabis, and nutritional supplements).: Yes Critical Care Time Critical Care Time: Yes Total Critical Care Time: 60 Attestation: Due to a high probability of clinically significant, life threatening de terioration, the patient required my highest level of preparedness to intervene emergently and I personally spent this critical care time directly and personally managing the patient. This critical care time included obtaining a history; examining the patient; pulse oximetry; ordering and review of studies; arranging urgent treatment with development of a management plan; evaluation of patient's response to treatment; frequent reassessment; and discussions with other providers. It was exclusive of separately billable procedures and treating other patients and teaching time. Please see Assessment and Plan section and the rest of the note for further information on patient assessment and treatment
[2024-07-06 14:21] LABS: Troponin I < 0.012 ng/mL (0.000-0.034)
--- NOTE | 2024-07-06 14:23 | P.PNAN_ITS ---
Anes - Eval Pre Procedure Procedure: Operation Date: 07/06/24 14:30 Proposed Procedures p Cysto, RPG, Stone Ext, Stent Placement(Right) - Aditya Schulte MD Date/Time: 07/06/24 14:23 Surgeon: Franca Preop Diagnosis: kidney stone Pre Op Diagnosis: AMS Patient Data Age: 53 Gender: F Height: 1.68 m Weight: 111.7 kg Last Vital Signs Temp 97 F L 07/06/24 10:41 Pulse 89 07/06/24 14:21 Resp 18 07/06/24 14:21 BP 90/79 L 07/06/24 14:21 Pulse Ox 99 07/06/24 14:21 O2 Del Method Nasal Cannula 07/06/24 11:30 O2 Flow Rate 2 07/06/24 11:30 Allergies Allergy/AdvReac Type Severity Reaction Status Date / Time trazodone AdvReac Hallucinati Verified 07/06/24 11:27 Home Medications ?Medication ?Instructions ?Recorded ?Confirmed ?Type bupropion HCl 150 mg tablet,12 hr 150 mg PO DAILY 04/18/21 04/18/21 History sustained-release hydrochlorothiazide 25 mg tablet 25 mg PO DAILY 04/18/21 04/18/21 History lorazepam 1 mg tablet 1 mg PO BID 04/18/21 04/18/21 History metformin 500 mg tablet See Rx Instructions .Route .COMPLEX 04/18/21 04/18/21 History venlafaxine 75 mg capsule,extended 75 mg PO DAILY 04/18/21 04/18/21 History release 24 hr zolpidem 10 mg tablet 04/18/21 History amoxicillin 875 mg-potassium 1 tablet PO Q12H 7 days #14 tabs 06/12/23 Rx clavulanate 125 mg tablet azithromycin 250 mg tablet See Rx Instructions PO .COMPLEX #6 06/12/23 Rx tabs mirtazapine 15 mg tablet mg 06/12/23 History tirzepatide 2.5 mg/0.5 mL mg subcut 06/12/23 History subcutaneous pen injector (Marques) Laboratory Tests 07/06/24 07/06/24 07/06/24 11:03 11:04 11:05 WBC 24.7 H K/mm3 (4.5-10.0) RBC 4.23 M/mm3 (4.2-5.4) Hgb 14.1 g/dL (12.0-15.0) Hct 41.7 % (37.0-47.0) MCV 98.6 fl (80-100) MCH 33.3 pg (26-34) MCHC 33.8 g/dl (32-36) RDW 14.5 % (11.5-14.5) Plt Count 400 H k/mm3 (150-375) MPV 8.7 fl (7.4-10.4) Immature Gran % (Auto) Not Reportable Neut % (Auto) Not Reportable Lymph % (Auto) Not Reportable [place] % (Auto) Not Reportable Eos % (Auto) Not Reportable Baso % (Auto) Not Reportable Lymph # (Auto) Not Reportable [place] # (Auto) Not Reportable Eos # (Auto) Not Reportable Baso # (Auto) Not Reportable Abs Immat Gran (auto) Not Reportable Absolute Neuts (auto) Not Reportable Absolute Nucleated RBC Not Reportable Total Counted 100 Neutrophils % (Manual) 72 % (46-73) Band Neutrophils % 8 H % (0-6) Lymphocytes % (Manual) 16 L % (18-44) Monocytes % (Manual) 4 % (3-9) Nucleated RBC % Not Reportable Abs Neuts (Manual) 19.76 H K/mm3 (1.7-7.2) Abs Lymphs (Manual) 3.95 K/mm3 (1.1-4.5) Abs Monocytes (Manual) 0.98 H K/mm3 (0.1-0.90) Platelet Estimate Increased (Adequate) Schistocytes None seen PT 12.9 Seconds (11.1-14.7) INR 0.9 APTT 20.4 L Seconds (22.3-36.8) Puncture Site Right radial ABG pH 7.364 (7.350-7.450) ABG pCO2 36.6 mmHg (35.0-45.0) ABG pO2 62.3 L mmHg (80.0-100.0) ABG PO2/FiO2 Ratio 2.97 % ABG HCO3 20.4 L mEq/l (22.0-26.0) ABG O2 Saturation 91.3 L % (95.0-100.0) ABG O2 Content 17.7 %vol (16.0-22.0) ABG Base Excess -4.3 mEq/l (+/-2.0) A-a Gradient 43.6 mmHg Oxyhemoglobin 89.2 L % THb (90.0-100.0) Total Hemoglobin 14.1 g/dL (12.0-18.0) O2 Delivery Device Room air O2 Liters/Min Not Reportable FiO2 21 % Sodium 139 mmol/L (137-145) Potassium 3.6 mmol/L (3.4-5.0) Chloride 108 H mmol/L (98-107) Carbon Dioxide 20 L mmol/L (22-30) Anion Gap 11 mmol/L (4-12) BUN 29 H D mg/dL (7-17) Creatinine 1.30 H mg/dL (0.7-1.0) Estim Creat Clear Calc 55 ml/min Estimated GFR 43 L (59 - ) Glucose 177 H mg/dL (65-110) Lactic Acid 2.8 H mmol/L (0.7-2.0) Calcium 9.4 mg/dL (8.4-10.2) Magnesium 2.2 mg/dL (1.6-2.3) Total Bilirubin 0.3 mg/dL (0.2-1.3) AST 28 U/L (14-36) ALT 24 U/L (6-35) Alkaline Phosphatase 96 U/L (38-126) Troponin I < 0.012 ng/mL (0.000-0.034) NT-Pro-B Natriuret Pep 107 H pg/mL (19.9-100) Total Protein 7.0 g/dL (6.3-8.2) Albumin 4.1 g/dL (3.5-5.1) Lipase 130 U/L (23-300) Procalcitonin 0.2 ng/mL Urine Color Yellow (Yellow) Urine Appearance Cloudy H (Clear) Urine pH 5.5 (5.0-9.0) Ur Specific [place] 1.023 (1.001-1.035) Urine Protein Negative mg/dL (Negative) Urine Glucose (UA) Negative mg/dL (Negative) Urine Ketones Negative mg/dL (Negative) Ur Blood (Man) Non-hemolyzed trace H (Negative) Urine Nitrate Negative (Negative) Urine Bilirubin Negative (Negative) Urine Urobilinogen 0.2 mg/dL (<2.0) Add Ur Microanalysis Reviewed Leukocyte Esterase Rfl 1+ H AMOS/UL (Negative) Urine RBC 6-10 H /hpf (0-2) Urine WBC 21-50 H /hpf (0-3) Ur Squamous Epith Cells Occasional /hpf (Few) Urine Bacteria None seen /hpf Urine Casts 11-20 Urine Opiates Screen Negative (Negative) Urine Methadone Screen Negative (Negative) Ur Barbiturates Screen Negative (Negative) Ur Phencyclidine Scrn Negative (Negative) Ur Amphetamine Screen Negative (Negative) U Benzodiazepines Scrn Negative (Negative) Urine Cocaine Screen Negative (Negative) U Cannabinoids Screen Negative (Negative) Ethyl Alcohol < 10 mg/dL (<10) Influenza A (RT-PCR) Influenza B (RT-PCR) RSV (RT-PCR) SARS-CoV-2 RNA (RT-PCR) 07/06/24 07/06/24 11:11 13:55 WBC RBC Hgb Hct MCV MCH MCHC RDW Plt Count MPV Immature Gran % (Auto) Neut % (Auto) Lymph % (Auto) [place] % (Auto) Eos % (Auto) Baso % (Auto) Lymph # (Auto) [place] # (Auto) Eos # (Auto) Baso # (Auto) Abs Immat Gran (auto) Absolute Neuts (auto) Absolute Nucleated RBC Total Counted Neutrophils % (Manual) Band Neutrophils % Lymphocytes % (Manual) Monocytes % (Manual) Nucleated RBC % Abs Neuts (Manual) Abs Lymphs (Manual) Abs Monocytes (Manual) Platelet Estimate Schistocytes PT INR APTT Puncture Site ABG pH ABG pCO2 ABG pO2 ABG PO2/FiO2 Ratio ABG HCO3 ABG O2 Saturation ABG O2 Content ABG Base Excess A-a Gradient Oxyhemoglobin Total Hemoglobin O2 Delivery Device O2 Liters/Min FiO2 Sodium Potassium Chloride Carbon Dioxide Anion Gap BUN Creatinine Estim Creat Clear Calc Estimated GFR Glucose Lactic Acid Calcium Magnesium Total Bilirubin AST ALT Alkaline Phosphatase Troponin I < 0.012 ng/mL (0.000-0.034) NT-Pro-B Natriuret Pep Total Protein Albumin Lipase Procalcitonin Urine Color Urine Appearance Urine pH Ur Specific [place] Urine Protein Urine Glucose (UA) Urine Ketones Ur Blood (Man) Urine Nitrate Urine Bilirubin Urine Urobilinogen Add Ur Microanalysis Leukocyte Esterase Rfl Urine RBC Urine WBC Ur Squamous Epith Cells Urine Bacteria Urine Casts Urine Opiates Screen Urine Methadone Screen Ur Barbiturates Screen Ur Phencyclidine Scrn Ur Amphetamine Screen U Benzodiazepines Scrn Urine Cocaine Screen U Cannabinoids Screen Ethyl Alcohol Influenza A (RT-PCR) Negative (Negative) Influenza B (RT-PCR) Negative (Negative) RSV (RT-PCR) Negative (Negative) SARS-CoV-2 RNA (RT-PCR) Negative (Negative) ECG: SR 84, Patient hx anesthesia problems: none Family hx anesthesia problems: none Prior surgeries: gastric bypass Results Review: All pre-operative results and documents have been reviewed as part of the pre- operative evaluation. [facility] Past Medical History Medical History Chronic pain Chronic GERD Kidney stones, calcium oxalate Depression Generalized anxiety disorder Hypertension Diabetes History of high blood pressure Anxiety and depression Surgical History Surgical History H/O gastric bypass Family History Family History Other Family history non-contributory Social History Social History Social History: Surrogate medical decision maker: Miguellalita Evangelista, spouse. Code status: Full code. Smoking status: Never smoker Alcohol intake: never Substance use: never Additional living arrangements comments: Lives with , his 2 sons, and sister in [place]. 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 Gender identity (if verbalized by the patient): Female Exam Day of Procedure 07/06/24 14:23
--- NOTE | 2024-07-06 14:23 | PM.IMHP ---
H&P: HPI History of Present Illness Date/Time: 07/06/24 14:23 Chief Complaint: Right ureteral stone Sepsis Urinary tract infection Narrative: 53 F with history of kidney stones (prior stent and procedures years in past with limited knowledge of date or other specifics) who presented to ER today with significant altered mental status, was found in ER to be hypotensive, WBC 24, CT a/p with 9 mm right prox ureteral stone. Patient lying in bed is somewhat fatigued but not in distress, answering questions. Reports feeling like she had the flu for greater than 1 month. She denies lateralizing flank pain but has chronic low back pain that has continued to be an issue of late. Denies dysuria, flank pain, hematuria. Has had ongoing chills. No n/v. CT as below with obstructing right proximal ureteral stone. Started on vanc/ cefepime in ER, cultures sent. given 2L IVF. Review of Systems Review of Systems: All systems reviewed & are unremarkable except as noted in HPI and below PMFSH Past Medical History Medical History (Updated 07/06/24 @ 14:31 by Brenda Gomez PA-C) Type 2 diabetes mellitus Chronic back pain Kidney stones Chronic GERD Hypertension Anxiety and depression Surgical History Surgical History History of gastric bypass History of ureter stent History of cholecystectomy Family History Family History Other Family history non-contributory Social History Social History Social History: Surrogate medical decision maker: Miguellalita Evangelista, spouse. Code status: Full code. Smoking status: Never smoker Alcohol intake: never Substance use: never Additional living arrangements comments: Lives with , his 2 sons, and sister in [place]. 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 Gender identity (if verbalized by the patient): Female Meds Home Medications and Allergies Home Medications ?Medication ?Instructions ?Recorded ?Confirmed ?Type bupropion HCl 150 mg tablet,12 hr 150 mg PO DAILY 04/18/21 04/18/21 History sustained-release hydrochlorothiazide 25 mg tablet 25 mg PO DAILY 04/18/21 04/18/21 History lorazepam 1 mg tablet 1 mg PO BID 04/18/21 04/18/21 History metformin 500 mg tablet See Rx Instructions .Route .COMPLEX 04/18/21 04/18/21 History venlafaxine 75 mg capsule,extended 75 mg PO DAILY 04/18/21 04/18/21 History release 24 hr zolpidem 10 mg tablet 04/18/21 History amoxicillin 875 mg-potassium 1 tablet PO Q12H 7 days #14 tabs 06/12/23 Rx clavulanate 125 mg tablet azithromycin 250 mg tablet See Rx Instructions PO .COMPLEX #6 06/12/23 Rx tabs mirtazapine 15 mg tablet mg 06/12/23 History tirzepatide 2.5 mg/0.5 mL mg subcut 06/12/23 History subcutaneous pen injector (Marques) Allergies Allergy/AdvReac Type Severity Reaction Status Date / Time trazodone AdvReac Hallucinati Verified 07/06/24 11:27 ng Vital Signs Vital Signs - 24 hr 07/06/24 10:41 07/06/24 10:48 07/06/24 10:49 Temperature 36.1 C L Pulse Rate 84 86 86 Respiratory Rate 18 14 15 Blood Pressure 103/69 103/69 Pulse Oximetry 93 90 92 Oxygen Delivery Room Air Oxygen Flow Rate 07/06/24 11:00 07/06/24 11:01 07/06/24 11:15 Temperature Pulse Rate 86 87 85 Respiratory Rate 20 18 17 Blood Pressure 102/54 L 90/53 L Pulse Oximetry 92 93 93 Oxygen Delivery Oxygen Flow Rate 07/06/24 11:16 07/06/24 11:30 07/06/24 11:47 Temperature Pulse Rate 84 84 Respiratory Rate 18 13 Blood Pressure Pulse Oximetry 97 98 100 Oxygen Delivery Nasal Cannula Oxygen Flow Rate 2 07/06/24 11:48 07/06/24 11:49 07/06/24 12:00 Temperature Pulse Rate 84 84 85 Respiratory Rate 17 14 20 Blood Pressure 94/55 L 88/58 L Pulse Oximetry 97 96 94 Oxygen Delivery Oxygen Flow Rate 07/06/24 12:15 07/06/24 12:16 07/06/24 12:58 Temperature Pulse Rate 85 84 85 Respiratory Rate 19 19 17 Blood Pressure 84/42 L 90/60 L Pulse Oximetry 95 96 Oxygen Delivery Oxygen Flow Rate 07/06/24 13:00 07/06/24 13:01 07/06/24 13:05 Temperature Pulse Rate 86 86 87 Respiratory Rate 15 16 17 Blood Pressure 76/54 L 80/53 L Pulse Oximetry 99 Oxygen Delivery Oxygen Flow Rate 07/06/24 13:13 07/06/24 13:15 07/06/24 13:16 Temperature Pulse Rate 87 86 86 Respiratory Rate 13 15 17 Blood Pressure 81/55 L 82/52 L Pulse Oximetry 100 100 98 Oxygen Delivery Oxygen Flow Rate 07/06/24 13:20 07/06/24 13:21 07/06/24 13:25 Temperature Pulse Rate 87 87 87 Respiratory Rate 20 16 15 Blood Pressure 74/42 L 73/44 L Pulse Oximetry 95 95 97 Oxygen Delivery Oxygen Flow Rate 07/06/24 13:30 07/06/24 13:31 07/06/24 13:33 Temperature Pulse Rate 87 86 86 Respiratory Rate 18 14 16 Blood Pressure 72/43 L 71/50 L Pulse Oximetry 93 96 91 Oxygen Delivery Oxygen Flow Rate 07/06/24 13:35 07/06/24 13:40 07/06/24 13:42 Temperature Pulse Rate 86 90 86 Respiratory Rate 18 19 17 Blood Pressure 74/40 L 74/44 L 90/41 L Pulse Oximetry 92 95 95 Oxygen Delivery Oxygen Flow Rate 07/06/24 13:45 07/06/24 13:46 07/06/24 13:50 Temperature Pulse Rate 86 86 87 Respiratory Rate 16 19 14 Blood Pressure 75/45 L 88/58 L Pulse Oximetry 94 96 95 Oxygen Delivery Oxygen Flow Rate 07/06/24 13:55 07/06/24 14:00 07/06/24 14:05 Temperature Pulse Rate 88 88 96 Respiratory Rate 17 19 17 Blood Pressure 98/55 L 87/54 L 90/60 L Pulse Oximetry 94 98 Oxygen Delivery Oxygen Flow Rate 07/06/24 14:10 07/06/24 14:15 07/06/24 14:16 Temperature Pulse Rate 88 88 88 Respiratory Rate 17 15 15 Blood Pressure 80/54 L 92/64 L Pulse Oximetry 93 98 Oxygen Delivery Oxygen Flow Rate 07/06/24 14:21 Temperature Pulse Rate 89 Respiratory Rate 18 Blood Pressure 90/79 L Pulse Oximetry 99 Oxygen Delivery Oxygen Flow Rate H&P: Results Labs Labs: Short CBC 07/06/24 Range/Units 11:05 WBC 24.7 H (4.5-10.0) K/mm3 Hgb 14.1 (12.0-15.0) g/dL Hct 41.7 (37.0-47.0) % Plt Count 400 H (150-375) k/mm3 BMP 07/06/24 11:05 Sodium 139 Potassium 3.6 Chloride 108 H Carbon Dioxide 20 L BUN 29 H D Creatinine 1.30 H Glucose 177 H Calcium 9.4 Cardiac Enzymes 07/06/24 07/06/24 Range/Units 11:05 13:55 Troponin I < 0.012 < 0.012 (0.000-0.034) ng/mL Liver Function 07/06/24 Range/Units 11:05 Total Bilirubin 0.3 (0.2-1.3) mg/dL AST 28 (14-36) U/L ALT 24 (6-35) U/L Alkaline Phosphatase 96 (38-126) U/L Albumin 4.1 (3.5-5.1) g/dL Urine 07/06/24 Range/Units 11:04 Urine Color Yellow (Yellow) Urine Appearance Cloudy H (Clear) Urine pH 5.5 (5.0-9.0) Ur Specific [place] 1.023 (1.001-1.035) Urine Protein Negative (Negative) mg/dL Urine Glucose (UA) Negative (Negative) mg/dL Imaging CT scan - abdomen: Radiologist's impression: CT A/P 07/06/24 - Impression: 9 mm proximal to mid right ureteral stone with mild to moderate right hydroureteronephrosis to this level. 14.6 cm simple appearing right ovarian cystic mass. Gynecological follow-up advised. Assessment and Plan Assessment and plan (1) Kidney stones, calcium oxalate: Code(s): N20.0 - Calculus of kidney Status: Acute Assessment and Plan: 9 mm right prox ureteral stone , presented with AMS, Afebrile but significant, progressive hypotension since presentation, UA 1+ LE, Neg nitrite, +WBC, - plan to OR emergently for cysto, Right stent - vanc/ cefepime - f/u cultures - likely to ICU after - discussed will need definitive stone management in future after infection improved. discussed with patient and that at times systemic infection will worsen prior to improvement after stent placement and that her condition at present is guarded given her substantial hypotension (2) UTI (urinary tract infection): Code(s): N39.0 - Urinary tract infection, site not specified Status: Acute (3) Sepsis: Code(s): A41.9 - Sepsis, unspecified organism Status: Acute
--- NOTE | 2024-07-06 14:24 | ED.GENADULT ---
HPI - General Adult General Chief complaint: Altered Mental Status Stated complaint: AMS Time Seen by Provider: 07/06/24 10:46 History of Present Illness HPI narrative: the patient is a 53-year-old female presents emergency department chief complaint of altered mental status. For the patient's family the patient had an episode of vomiting and then was altered the patient would follow commands but was not initially talking the patient had a pressure in the 100s was afebrile the patient has had prior history of kidney stones and diabetes. Related Data Home Medications ?Medication ?Instructions ?Recorded ?Confirmed ?Last Taken ?Type bupropion HCl 150 mg tablet,12 hr 150 mg PO DAILY 04/18/21 04/18/21 05/09/21 History sustained-release 150 mg hydrochlorothiazide 25 mg tablet 25 mg PO DAILY 04/18/21 04/18/21 05/09/21 History 25 mg lorazepam 1 mg tablet 1 mg PO BID 04/18/21 04/18/21 05/09/21 History 1 mg metformin 500 mg tablet See Rx Instructions .Route .COMPLEX 04/18/21 04/18/21 05/09/21 History 0 venlafaxine 75 mg capsule,extended 75 mg PO DAILY 04/18/21 04/18/21 05/09/21 History release 24 hr 75 mg zolpidem 10 mg tablet 04/18/21 05/09/21 History mirtazapine 15 mg tablet mg 06/12/23 Unknown History tirzepatide 2.5 mg/0.5 mL mg subcut 06/12/23 Unknown History subcutaneous pen injector (Mounjaro) Allergies Allergy/AdvReac Type Severity Reaction Status Date / Time trazodone AdvReac Hallucinati Verified 07/06/24 11:27 ng Review of Systems Review of Systems: A 10 system review of systems was completed on the patient and is negative except for what is stated in the HPI. Nursing and ancillary documentation was reviewed. [facility] Past Medical History Medical History Chronic pain Chronic GERD Kidney stones, calcium oxalate Depression Generalized anxiety disorder Hypertension Diabetes History of high blood pressure Anxiety and depression Surgical History Surgical History H/O gastric bypass Family History Family History Other Family history non-contributory Social History Social History Social History: Surrogate medical decision maker: Miguel Evangelista, spouse. Code status: Full code. Smoking status: Never smoker Alcohol intake: never Substance use: never Additional living arrangements comments: Lives with , his 2 sons, and sister in [place]. 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 Gender identity (if verbalized by the patient): Female Exam Narrative: GENERAL: Ill-appearing, obese, and in no acute distress. HEAD: Normocephalic, atraumatic. EYES: PERRLA and EOMI. ENT: Nares clear, no rhinorrhea or epistaxis. Mucous membranes moist. NECK: Supple. CHEST: Clear to auscultation. No respiratory distress. HEART: Regular rate and rhythm. No murmur heard. Normal peripheral pulses. ABDOMEN: Soft, nontender, nondistended, normal active bowel sounds. EXTREMITIES: Normal range of motion. No edema. SKIN: Warm, dry, no rash. NEURO: No focal deficits. Alert follows commands after fluid resuscitation patient was answering questions appropriately. PSYCH: Normal mood and affect. Course Vital Signs Vital signs: Vital Signs Temperature 36.1 C L 07/06/24 10:41 Pulse Rate 84 07/06/24 10:41 Respiratory Rate 18 07/06/24 10:41 Blood Pressure 103/69 07/06/24 10:41 Pulse Oximetry 93 07/06/24 10:41 Oxygen Delivery Room Air 07/06/24 10:41 Temperature 36.1 C L 07/06/24 10:41 Pulse Rate 89 07/06/24 14:21 Respiratory Rate 18 07/06/24 14:21 Blood Pressure 90/79 L 07/06/24 14:21 Pulse Oximetry 99 07/06/24 14:21 Oxygen Delivery Nasal Cannula 07/06/24 11:30 Oxygen Flow Rate 2 07/06/24 11:30 Medical Decision Making MDM Narrative Medical decision making narrative: differential diagnosis includes sepsis, new intracranial hemorrhage, CVA, electrolyte abnormality, intoxication patient's laboratory studies were obtained showed white count 4000 CT head showed no evidence of hemorrhage, CT angiography of the head and neck showed no evidence of large vessel occlusion. Laboratory studies showed a creatinine of 1.3 with BUN of 29 CO2 is 20 lactic acid was slightly elevated at 2.8 urinalysis showed 21-50 white blood cells 1+ leukocyte esterase toxicology screens were negative ETOH was negative COVID flu and RSV were negative blood cultures were obtained on the patient patient was empirically started on cefepime and vanc. CT scan of the chest abdomen pelvis showed evidence of a 9 mm proximal stone with hydronephrosis present. The case was discussed with Urology who will take patient to the operating room for a ureteral stent emergently. Vital Signs Vital Signs: Vital Signs Temperature 36.1 C L 07/06/24 10:41 Pulse Rate 84 07/06/24 10:41 Respiratory Rate 18 07/06/24 10:41 Blood Pressure 103/69 07/06/24 10:41 Pulse Oximetry 93 07/06/24 10:41 Oxygen Delivery Room Air 07/06/24 10:41 Temperature 36.1 C L 07/06/24 10:41 Pulse Rate 89 07/06/24 14:21 Respiratory Rate 18 07/06/24 14:21 Blood Pressure 90/79 L 07/06/24 14:21 Pulse Oximetry 99 07/06/24 14:21 Oxygen Delivery Nasal Cannula 07/06/24 11:30 Oxygen Flow Rate 2 07/06/24 11:30 Lab Data 07/06/24 11:05 07/06/24 11:05 Labs: Lab Results 07/06/24 07/06/24 07/06/24 Range/Units 11:04 11:05 11:11 WBC 24.7 H (4.5-10.0) K/mm3 RBC 4.23 (4.2-5.4) M/mm3 Hgb 14.1 (12.0-15.0) g/dL Hct 41.7 (37.0-47.0) % MCV 98.6 (80-100) fl MCH 33.3 (26-34) pg MCHC 33.8 (32-36) g/dl RDW 14.5 (11.5-14.5) % Plt Count 400 H (150-375) k/mm3 MPV 8.7 (7.4-10.4) fl Immature Gran % (Auto) Not Reportable Neut % (Auto) Not Reportable Lymph % (Auto) Not Reportable [place] % (Auto) Not Reportable Eos % (Auto) Not Reportable Baso % (Auto) Not Reportable Lymph # (Auto) Not Reportable [place] # (Auto) Not Reportable Eos # (Auto) Not Reportable Baso # (Auto) Not Reportable Abs Immat Gran (auto) Not Reportable Absolute Neuts (auto) Not Reportable Absolute Nucleated RBC Not Reportable Total Counted 100 Neutrophils % (Manual) 72 (46-73) % Band Neutrophils % 8 H (0-6) % Lymphocytes % (Manual) 16 L (18-44) % Monocytes % (Manual) 4 (3-9) % Nucleated RBC % Not Reportable Abs Neuts (Manual) 19.76 H (1.7-7.2) K/mm3 Abs Lymphs (Manual) 3.95 (1.1-4.5) K/mm3 Abs Monocytes (Manual) 0.98 H (0.1-0.90) K/mm3 Platelet Estimate Increased (Adequate) Schistocytes None seen PT 12.9 (11.1-14.7) Seconds INR 0.9 APTT 20.4 L (22.3-36.8) Seconds Sodium 139 (137-145) mmol/L Potassium 3.6 (3.4-5.0) mmol/L Chloride 108 H (98-107) mmol/L Carbon Dioxide 20 L (22-30) mmol/L Anion Gap 11 (4-12) mmol/L BUN 29 H D (7-17) mg/dL Creatinine 1.30 H (0.7-1.0) mg/dL Estim Creat Clear Calc 55 ml/min Estimated GFR 43 L (59 - ) Glucose 177 H (65-110) mg/dL Lactic Acid 2.8 H (0.7-2.0) mmol/L Calcium 9.4 (8.4-10.2) mg/dL Magnesium 2.2 (1.6-2.3) mg/dL Total Bilirubin 0.3 (0.2-1.3) mg/dL AST 28 (14-36) U/L ALT 24 (6-35) U/L Alkaline Phosphatase 96 (38-126) U/L Troponin I < 0.012 (0.000-0.034) ng/mL NT-Pro-B Natriuret Pep 107 H (19.9-100) pg/mL Total Protein 7.0 (6.3-8.2) g/dL Albumin 4.1 (3.5-5.1) g/dL Lipase 130 (23-300) U/L Procalcitonin 0.2 ng/mL Urine Color Yellow (Yellow) Urine Appearance Cloudy H (Clear) Urine pH 5.5 (5.0-9.0) Ur Specific [place] 1.023 (1.001-1.035) Urine Protein Negative (Negative) mg/dL Urine Glucose (UA) Negative (Negative) mg/dL Urine Ketones Negative (Negative) mg/dL Ur Blood (Man) Non-hemolyzed trace H (Negative) Urine Nitrate Negative (Negative) Urine Bilirubin Negative (Negative) Urine Urobilinogen 0.2 (<2.0) mg/dL Add Ur Microanalysis Reviewed Leukocyte Esterase Rfl 1+ H (Negative) AMOS/UL Urine RBC 6-10 H (0-2) /hpf Urine WBC 21-50 H (0-3) /hpf Ur Squamous Epith Cells Occasional (Few) /hpf Urine Bacteria None seen /hpf Urine Casts 11-20 Urine Opiates Screen Negative (Negative) Urine Methadone Screen Negative (Negative) Ur Barbiturates Screen Negative (Negative) Ur Phencyclidine Scrn Negative (Negative) Ur Amphetamine Screen Negative (Negative) U Benzodiazepines Scrn Negative (Negative) Urine Cocaine Screen Negative (Negative) U Cannabinoids Screen Negative (Negative) Ethyl Alcohol < 10 (<10) mg/dL Influenza A (RT-PCR) Negative (Negative) Influenza B (RT-PCR) Negative (Negative) RSV (RT-PCR) Negative (Negative) SARS-CoV-2 RNA (RT-PCR) Negative (Negative) 07/06/24 Range/Units 13:55 WBC (4.5-10.0) K/mm3 RBC (4.2-5.4) M/mm3 Hgb (12.0-15.0) g/dL Hct (37.0-47.0) % MCV (80-100) fl MCH (26-34) pg MCHC (32-36) g/dl RDW (11.5-14.5) % Plt Count (150-375) k/mm3 MPV (7.4-10.4) fl Immature Gran % (Auto) Neut % (Auto) Lymph % (Auto) [place] % (Auto) Eos % (Auto) Baso % (Auto) Lymph # (Auto) [place] # (Auto) Eos # (Auto) Baso # (Auto) Abs Immat Gran (auto) Absolute Neuts (auto) Absolute Nucleated RBC Total Counted Neutrophils % (Manual) (46-73) % Band Neutrophils % (0-6) % Lymphocytes % (Manual) (18-44) % Monocytes % (Manual) (3-9) % Nucleated RBC % Abs Neuts (Manual) (1.7-7.2) K/mm3 Abs Lymphs (Manual) (1.1-4.5) K/mm3 Abs Monocytes (Manual) (0.1-0.90) K/mm3 Platelet Estimate (Adequate) Schistocytes PT (11.1-14.7) Seconds INR APTT (22.3-36.8) Seconds Sodium (137-145) mmol/L Potassium (3.4-5.0) mmol/L Chloride (98-107) mmol/L Carbon Dioxide (22-30) mmol/L Anion Gap (4-12) mmol/L BUN (7-17) mg/dL Creatinine (0.7-1.0) mg/dL Estim Creat Clear Calc ml/min Estimated GFR (59 - ) Glucose (65-110) mg/dL Lactic Acid (0.7-2.0) mmol/L Calcium (8.4-10.2) mg/dL Magnesium (1.6-2.3) mg/dL Total Bilirubin (0.2-1.3) mg/dL AST (14-36) U/L ALT (6-35) U/L Alkaline Phosphatase (38-126) U/L Troponin I < 0.012 (0.000-0.034) ng/mL NT-Pro-B Natriuret Pep (19.9-100) pg/mL Total Protein (6.3-8.2) g/dL Albumin (3.5-5.1) g/dL Lipase (23-300) U/L Procalcitonin ng/mL Urine Color (Yellow) Urine Appearance (Clear) Urine pH (5.0-9.0) Ur Specific [place] (1.001-1.035) Urine Protein (Negative) mg/dL Urine Glucose (UA) (Negative) mg/dL Urine Ketones (Negative) mg/dL Ur Blood (Man) (Negative) Urine Nitrate (Negative) Urine Bilirubin (Negative) Urine Urobilinogen (<2.0) mg/dL Add Ur Microanalysis Leukocyte Esterase Rfl (Negative) AMOS/UL Urine RBC (0-2) /hpf Urine WBC (0-3) /hpf Ur Squamous Epith Cells (Few) /hpf Urine Bacteria /hpf Urine Casts Urine Opiates Screen (Negative) Urine Methadone Screen (Negative) Ur Barbiturates Screen (Negative) Ur Phencyclidine Scrn (Negative) Ur Amphetamine Screen (Negative) U Benzodiazepines Scrn (Negative) Urine Cocaine Screen (Negative) U Cannabinoids Screen (Negative) Ethyl Alcohol (<10) mg/dL Influenza A (RT-PCR) (Negative) Influenza B (RT-PCR) (Negative) RSV (RT-PCR) (Negative) SARS-CoV-2 RNA (RT-PCR) (Negative) ABG Data ABG results: 07/06/24 11:03 Puncture Site Right radial ABG pH 7.364 ABG pCO2 36.6 ABG pO2 62.3 L ABG PO2/FiO2 Ratio 2.97 ABG HCO3 20.4 L ABG O2 Saturation 91.3 L ABG O2 Content 17.7 ABG Base Excess -4.3 A-a Gradient 43.6 Oxyhemoglobin 89.2 L Total Hemoglobin 14.1 O2 Delivery Device Room air O2 Liters/Min Not Reportable FiO2 21 Critical Care Time Critical Care Time Critical Care Time: Yes Total Critical Care Time: 75 Discharge Plan Discharge Clinical Impression: Altered mental status, Sepsis, Ureterolithiasis, Pyelonephritis Patient Disposition: Still a Patient Condition: Stable Patient Language: [place]an Prescriptions: No Action mirtazapine 15 mg tablet Mounjaro 2.5 mg/0.5 mL pen injector SUBCUT metformin 500 mg tablet See Rx Instructions .ROUTE .COMPLEX Rx Instructions: 500 mg orally bupropion HCl 150 mg tablet sustained-release 12 hr 150 mg PO DAILY venlafaxine 75 mg capsule,extended release 24hr 75 mg PO DAILY hydrochlorothiazide 25 mg tablet 25 mg PO DAILY lorazepam 1 mg tablet 1 mg PO BID zolpidem 10 mg tablet amoxicillin-pot clavulanate 875-125 mg tablet 1 tablet PO Q12H 7 Days Qty: 14 0RF azithromycin 250 mg tablet See Rx Instructions .ROUTE .COMPLEX Qty: 6 0RF Rx Instructions: For 250 mg dose pack: take 500 mg today (day 1), then 250 mg for 4 days (days 2-5) Follow-up/Referrals: Patti,NEVAEH Newby [Primary Care Provider] - Time of Disposition: 14:25
--- NOTE | 2024-07-06 14:55 | P.PNAN_ITS ---
Anes - Eval Final PreProcedure Day of Procedure 07/06/24 14:55 Patient weight: morbidly obese Heart: regular rate and rhythm Lungs: clear to auscultation Airway: Mallampati scale class III Neurological: alert and oriented Last oral intake: >/= 8 hours ASA classification: III Emergent: yes Anesthetic plan: proceed Anesthesia type and monitoring: general GIVS (discussed possible intubation with ) and standard monitoring Results Review: All pre-operative results and documents have been reviewed as part of the pre- operative evaluation. Informed Consent: The patient's anesthetic plan and its attendant risks and benefits were discussed with the patient/family/POA. Questions were solicited and answers provided to the satisfaction of the patient/family/POA.
--- NOTE | 2024-07-06 15:22 | P.OP_ITS ---
Procedure Note - Detailed Date of Procedure 07/06/24 Pre-op Diagnosis Obstructing right ureteral Stone, UTI,, Sepsis, Altered Mental Status Post-op Diagnosis Same Procedure Performed Cystoscopy, right retrograde pyelogram, placement of right ureteral stent Surgeon Aditya Schulte MD Anesthesia MAC Indications 53-year-old woman presented emergency department today with altered mental status found to have a 9 mm proximal right ureteral stone, leukocytosis, clinical picture concerning for severe sepsis taken to the operating room emergently for right ureteral stent placement. Findings Retained contrast in bladder and right renal pelvis from recent CT with IV contrast in the emergency department. No mucosal abnormalities visualized within the bladder Description of Procedure after obtaining informed consent proceed to the operating room. The patient was placed in supine position. SCD boots were placed. Mac anesthesia was induced. She was placed in lithotomy position and prepped and draped in usual sterile manner. She had been given cefepime in the emergency department this was not redosed. She was then prepped and draped in usual sterile manner. I began by passing well lubricated 22 Kazakh cystoscope per the urethra. Enter the bladder. The bladder was emptied of all urine. I performed a full endoscopic evaluation the bladder there was no obvious mucosal abnormality or o ther unexpected findings within the bladder. then focused my attention on the patient's right ureteral orifice. This was cannulated with a 5 Kazakh catheter. Over this Sensor wire was passed. This was able to be passed into the dilated renal pelvis which had retained contrast. A 5 [place] catheter was passed over the wire to the renal pelvis as well. This was done without much resistance along course of the ureter however of note the patient's ureter was somewhat tortuous coursing substantially near midline. Catheter was then withdrawn leaving the wire in place. Over this a 6 Kazakh variable length ureteral stent was placed. This was passed along the course of the ureter without much difficulty was able to enter the renal pelvis and at that level the wire was withdrawn a coil was visualized within the renal pelvis and the bladder. The bladder was emptied. A Jones catheter was placed. Completion x-ray stent remained in good position. This concluded the procedure which the patient tolerated without apparent complication. Plan will be for her to go directly to the ICU for further resuscitation and supportive care. Will need definitive stone management after clinical picture improves this was discussed with the patient and her Implants 6 Kazakh variable length ureteral stent Complications No immediate complications
[2024-07-06] MEDS: VANCOMYCIN 1,250 MG/NS 250 ML 1,250 MG/250 ML BAG 166.67 MG IVPB ×2 (15:30→16:10)
[2024-07-06 16:01] LABS: Lactic Acid 3.3 mmol/L (0.7-2.0)
[2024-07-06] MEDS: SODIUM CHLORIDE 0.9% IV 1,000 ML 125 ML IV CONT (16:10)
[2024-07-06] MEDS: ALBUMIN HUMAN 5% 250 ML IV CONT (16:11)
--- NOTE | 2024-07-06 16:27 | PC.NURSE ---
Patient arrived to ICU room 8 from OR. Patient arrived on 6L oxygen mask. Bilateral IV's intact with NS bolus being administered. Bedside report received and vital signs obtained.
--- NOTE | 2024-07-06 16:29 | ADMGEN ---
This patient, Veronica Evangelista, was admitted to Intensive Care Unit-8 at 1530. Patient/family oriented to hospital policies and general routines including ID bracelet, bed and alarms, visiting hours, pain management, procedures, bathroom and other care routines, personal items, smoking policy, room service/diet, and visiting hours. Information on how to activate the Rapid Response Team has been discussed. Patient/Family are encouraged to report perceived risks to care and to ask questions if they do not understand what they are told or what they should do.
[2024-07-06 19:37] LABS: Strep Group A RT-PCR NOT DETECTED (Negative)
[2024-07-06 19:49] LABS: Influenza A QL RT-PCR Negative (Negative); Influenza B QL RT-PCR Negative (Negative); RSV RNA, RT-PCR Negative (Negative); SARS-CoV-2 RNA PCR Negative (Negative)
[2024-07-06 20:00] LABS: MRSA (PCR) NOT DETECTED (NOT DETECTE)
[2024-07-06 23:07] LABS: Hemoglobin A1C 5.4 % (<5.7)
[2024-07-07] VITALS (14 sets, daily range): BP systolic 103–159; BP diastolic 73–108; PULSE 104–127; RESP 18–22; TEMP 36.4–37.1; O2SAT 91–100
[2024-07-07] MEDS: CEFEPIME 2 GM/NS 50 ML 2 GM/50 ML BAG IVPB ×2 (01:24→13:55)
[2024-07-07] MEDS: LORazepam INJ (*CRX) 2 MG/ML VIAL 1 MG IV PUSH (01:25)
[2024-07-07 04:54] LABS: Basophils Absolute Auto 0.1 K/mm3 (0.0-0.1); Basophils Percent Auto 0.4 % (0.2-1.2); Eosinophils Absolute Auto 0.1 K/mm3 (0-0.3); Hematocrit 37.7 % (37.0-47.0); Hemoglobin 12.2 g/dL (12.0-15.0); Immature Granulocyte Absolute 0.12 K/mm3 (0.00-0.031); Immature Granulocyte Percent A 0.9 % (0-0.5); Lymphocytes Absolute Auto 4.72 K/mm3 (0.9-3.2); Lymphocytes Percent Auto 34.2 % (18.3-44.2); Mean Corpuscular HGB Conc 32.4 g/dl (32-36); Mean Corpuscular Hemoglobin 33.2 pg (26-34); Mean Corpuscular Volume 102.4 fl (80-100); Mean Platelet Volume 8.6 fl (7.4-10.4); Monocytes Absolute Auto 1.3 K/mm3 (0.1-0.6); Monocytes Percent Auto 9.1 % (2.6-8.5); Neutrophils Absolute Auto 7.5 K/mm3 (1.3-6.7); Neutrophils Percent Auto 54.4 % (45.5-73.1); Platelet Count Result 296 k/mm3 (150-375); Red Blood Count 3.68 M/mm3 (4.2-5.4); Red Cell Distribution Width 14.7 % (11.5-14.5); White Blood Count 13.8 K/mm3 (4.5-10.0)
[2024-07-07 05:12] LABS: Alanine Aminotransferase 20 U/L (6-35); Albumin Level 3.4 g/dL (3.5-5.1); Alkaline Phosphatase 80 U/L (38-126); Anion Gap 5 mmol/L (4-12); Aspartate Amino Transferase 23 U/L (14-36); Bilirubin,Total 0.2 mg/dL (0.2-1.3); Blood Urea Nitrogen 14 mg/dL (7-17); Calcium 8.5 mg/dL (8.4-10.2); Carbon Dioxide 22 mmol/L (22-30); Chloride 114 mmol/L (98-107); Estimated CRCL calculation 88 ml/min; Estimated Glomerular Filt Rate > 60; Glucose 80 mg/dL (65-110); Magnesium 1.8 mg/dL (1.6-2.3); Sodium 141 mmol/L (137-145)
--- NOTE | 2024-07-07 07:38 | P.PNUR_ITS ---
Progress Note: A&P Assessment and Plan (1) Acute kidney injury: Code(s): N17.9 - Acute kidney failure, unspecified Status: Acute (2) Hydronephrosis with urinary obstruction due to ureteral calculus: Code(s): N13.2 - Hydronephrosis with renal and ureteral calculous obstruction Status: Acute (3) Ureterolithiasis: Code(s): N20.1 - Calculus of ureter Status: Acute (4) Sepsis: Code(s): A41.9 - Sepsis, unspecified organism Status: Acute Plan Stent in place. Patient is stable. Urine cultures pending. Continue antibiotics until urine cultures returned then change to susceptible p.o. antibiotic. Will need outpatient stone management. Subjective Subjective Date/Time Seen: 07/07/24 07:38 Interval history: Patient resting comfortable with family member in room. I did not awaken patient. Discussed with nurse. Blood pressures are stable. Patient is not on pressors Exam Narrative: Sleeping comfortably. Urine is clear. Objective Data Vital Signs Vital Signs: Vital Signs - 24 hr 07/06/24 10:41 07/06/24 10:48 07/06/24 10:49 Temperature 97 F L Pulse Rate 84 86 86 Respiratory Rate 18 14 15 Blood Pressure 103/69 103/69 Pulse Oximetry 93 90 92 Oxygen Delivery Room Air Oxygen Flow Rate 07/06/24 11:00 07/06/24 11:01 07/06/24 11:15 Temperature Pulse Rate 86 87 85 Respiratory Rate 20 18 17 Blood Pressure 102/54 L 90/53 L Pulse Oximetry 92 93 93 Oxygen Delivery Oxygen Flow Rate 07/06/24 11:16 07/06/24 11:30 07/06/24 11:47 Temperature Pulse Rate 84 84 Respiratory Rate 18 13 Blood Pressure Pulse Oximetry 97 98 100 Oxygen Delivery Nasal Cannula Oxygen Flow Rate 2 07/06/24 11:48 07/06/24 11:49 07/06/24 12:00 Temperature Pulse Rate 84 84 85 Respiratory Rate 17 14 20 Blood Pressure 94/55 L 88/58 L Pulse Oximetry 97 96 94 Oxygen Delivery Oxygen Flow Rate 07/06/24 12:15 07/06/24 12:16 07/06/24 12:58 Temperature Pulse Rate 85 84 85 Respiratory Rate 19 19 17 Blood Pressure 84/42 L 90/60 L Pulse Oximetry 95 96 Oxygen Delivery Oxygen Flow Rate 07/06/24 13:00 07/06/24 13:01 07/06/24 13:05 Temperature Pulse Rate 86 86 87 Respiratory Rate 15 16 17 Blood Pressure 76/54 L 80/53 L Pulse Oximetry 99 Oxygen Delivery Oxygen Flow Rate 07/06/24 13:13 07/06/24 13:15 07/06/24 13:16 Temperature Pulse Rate 87 86 86 Respiratory Rate 13 15 17 Blood Pressure 81/55 L 82/52 L Pulse Oximetry 100 100 98 Oxygen Delivery Oxygen Flow Rate 07/06/24 13:20 07/06/24 13:21 07/06/24 13:25 Temperature Pulse Rate 87 87 87 Respiratory Rate 20 16 15 Blood Pressure 74/42 L 73/44 L Pulse Oximetry 95 95 97 Oxygen Delivery Oxygen Flow Rate 07/06/24 13:30 07/06/24 13:31 07/06/24 13:33 Temperature Pulse Rate 87 86 86 Respiratory Rate 18 14 16 Blood Pressure 72/43 L 71/50 L Pulse Oximetry 93 96 91 Oxygen Delivery Oxygen Flow Rate 07/06/24 13:35 07/06/24 13:40 07/06/24 13:42 Temperature Pulse Rate 86 90 86 Respiratory Rate 18 19 17 Blood Pressure 74/40 L 74/44 L 90/41 L Pulse Oximetry 92 95 95 Oxygen Delivery Oxygen Flow Rate 07/06/24 13:45 07/06/24 13:46 07/06/24 13:50 Temperature Pulse Rate 86 86 87 Respiratory Rate 16 19 14 Blood Pressure 75/45 L 88/58 L Pulse Oximetry 94 96 95 Oxygen Delivery Oxygen Flow Rate 07/06/24 13:55 07/06/24 14:00 07/06/24 14:05 Temperature Pulse Rate 88 88 96 Respiratory Rate 17 19 17 Blood Pressure 98/55 L 87/54 L 90/60 L Pulse Oximetry 94 98 Oxygen Delivery Oxygen Flow Rate 07/06/24 14:10 07/06/24 14:15 07/06/24 14:16 Temperature Pulse Rate 88 88 88 Respiratory Rate 17 15 15 Blood Pressure 80/54 L 92/64 L Pulse Oximetry 93 98 Oxygen Delivery Oxygen Flow Rate 07/06/24 14:21 07/06/24 15:30 07/06/24 15:45 Temperature 97.5 F L Pulse Rate 89 94 94 Respiratory Rate 18 19 16 Blood Pressure 90/79 L 76/29 L 87/62 L Pulse Oximetry 99 100 100 Oxygen Delivery Oxygen Flow Rate 07/06/24 16:00 07/06/24 16:00 07/06/24 16:00 Temperature Pulse Rate 95 95 Respiratory Rate 17 17 Blood Pressure 82/60 L Pulse Oximetry 100 100 Oxygen Delivery Room Air Oxygen Flow Rate 07/06/24 16:15 07/06/24 18:00 07/06/24 18:00 Temperature Pulse Rate 96 103 H 97 Respiratory Rate 17 23 H Blood Pressure 99/70 L 116/81 Pulse Oximetry 100 99 Oxygen Delivery Oxygen Flow Rate 07/06/24 20:00 07/06/24 20:00 07/06/24 20:00 Temperature 98.8 F Pulse Rate 97 111 H 111 H Respiratory Rate 23 H 27 H Blood Pressure 116/97 H Pulse Oximetry 99 95 Oxygen Delivery Room Air Oxygen Flow Rate 07/06/24 22:00 07/06/24 22:00 07/07/24 00:00 Temperature Pulse Rate 115 H 115 H 116 H Respiratory Rate 19 22 H Blood Pressure 142/56 H 103/73 Pulse Oximetry 93 91 Oxygen Delivery Oxygen Flow Rate 07/07/24 00:00 07/07/24 00:00 07/07/24 02:00 Temperature Pulse Rate 116 H 114 H 117 H Respiratory Rate 22 H Blood Pressure Pulse Oximetry 91 Oxygen Delivery Room Air Oxygen Flow Rate 07/07/24 02:00 07/07/24 04:00 07/07/24 04:00 Temperature Pulse Rate 117 H 117 H 115 H Respiratory Rate 21 H 21 H Blood Pressure 130/89 Pulse Oximetry 91 91 Oxygen Delivery Nasal Cannula Oxygen Flow Rate 2 07/07/24 04:00 07/07/24 06:00 07/07/24 06:00 Temperature 98.3 F 97.5 F L Pulse Rate 113 H 114 H 114 H Respiratory Rate 18 20 Blood Pressure 116/81 145/99 H Pulse Oximetry 98 99 Oxygen Delivery Oxygen Flow Rate Intake/Output Intake/Output: Intake & Output 07/04/24 07/05/24 07/06/24 07/07/24 23:59 23:59 23:59 23:59 Intake Total 2790 Output Total 1500 1550 Balance 1290 -1550 Meds/Results Medications: Active Medications Generic Name Dose Route Start Last Admin Trade Name Freq PRN Reason Stop Dose Admin Acetaminophen 650 mg 07/06/24 14:21 Acetaminophen 325 Mg Tablet PO Q4H PRN Mild Pain (1-3) or Fever Bupropion HCl 150 mg 07/07/24 09:00 Bupropion Hcl Sr (12 Hr) 150 Mg Tab PO DAILY ZINA Dextrose 12.5 gm 07/06/24 22:26 Dextrose 50% 25 Gm/50 Ml Syringe IV PUSH PRN PRN Hypoglycemia Protocol Gabapentin 100 mg 07/07/24 09:00 Gabapentin 100 Mg Capsule PO TID ZINA Glucagon 1 mg 07/06/24 22:26 Glucagon For Inj 1 Mg Vial IM PRN PRN Hypoglycemia Protocol Glucose 15 gm 07/06/24 22:26 Glucose Oral Gel 15 Gm Of Glucse In 37.5 Gm Tube PO PRN PRN Hypoglycemia Protocol Hydroxyzine HCl 25 mg 07/06/24 22:28 Hydroxyzine Hcl 25 Mg Tablet PO BID PRN anxiety Cefepime HCl 2 gm in 50 mls @ 100 mls/hr 07/07/24 02:00 07/07/24 01:24 Maxipime 2 Gm/Ns 50 Ml IVPB 100 mls/hr Q12H ZINA Administration Sodium Chloride 1,000 mls @ 125 mls/hr 07/06/24 14:25 07/06/24 16:10 Normal Saline Iv IV CONT 125 mls/hr .Q8H ZINA Administration Dextrose 1,000 mls @ 100 mls/hr 07/06/24 22:26 Dextrose 5% 1,000 Ml IVPB PRN PRN Hypoglycemia Protocol Vancomycin HCl 1,500 mg in 500 mls @ 250 mls/hr 07/07/24 10:00 Vancomycin 1,500 Mg/Ns 500 Ml IVPB Q18H ZINA Insulin Aspart 3 - 6 units 07/07/24 08:00 Insulin Aspart (*Bkc) 100 Units/Ml SUB-Q TIDWM ZINA Protocol Insulin Aspart 1 - 3 units 07/07/24 21:00 Insulin Aspart (*Bkc) 100 Units/Ml SUB-Q HS ZINA Protocol Methocarbamol 750 mg 07/06/24 22:28 Methocarbamol 750 Mg Tablet PO TID PRN pain, muscle spasms Miscellaneous Information 1 each 07/06/24 00:01 (Progesterone Micronized 200 Mg Capsule) Is Nonformulary, Can Patient Bring From Home? XX 08/05/24 00:00 CLARIFY ZINA Miscellaneous Information 1 each 07/06/24 00:01 (Estradiol [Marlys] 0.05 Mg/24 Hr Patch Semiweekly) Is Nonformulary, Can Patient Bring From XX 08/05/24 00:00 CLARIFY ZINA Non-Formulary Medication 0.075 mg 07/06/24 22:30 Estradiol [Marlys] TRANSDERM 08/05/24 22:29 .twice weekly ZINA Non-Formulary Medication 200 mg 07/07/24 21:00 Progesterone Micronized PO 08/06/24 20:59 HS ZINA Pantoprazole Sodium 40 mg 07/07/24 09:00 Pantoprazole Sodium Iv 40 Mg Vial IV PUSH QAM [facility] Vancomycin HCl 1 each 07/06/24 16:33 Vancomycin For Acute Kidney Injury IVPB PRN PRN Vancomycin Protocol Venlafaxine HCl 75 mg 07/07/24 09:00 Venlafaxine Hcl Xr 75 Mg Cap.Er.24h PO DAILY [facility] Radiology Results: ITS Impressions Head CT 07/06/24 12:03 Impression: No significant abnormality seen. Chest X-Ray 07/06/24 12:04 Impression: Central congestive change and possible mild central and left basilar pulmonary edema. Head/Neck CTA 07/06/24 12:50 Impression: No significant vascular abnormality. Chest/Abdomen/Pelvis CT 07/06/24 12:52 Impression: 9 mm proximal to mid right ureteral stone with mild to moderate right hydroureteronephrosis to this level. 14.6 cm simple appearing right ovarian cystic mass. Gynecological follow-up advised. Labs Labs: Laboratory Results - last 24 hr 07/06/24 07/06/24 07/06/24 11:03 11:04 11:05 WBC 24.7 H RBC 4.23 Hgb 14.1 Hct 41.7 MCV 98.6 MCH 33.3 MCHC 33.8 RDW 14.5 Plt Count 400 H MPV 8.7 Immature Gran % (Auto) Not Reportable Neut % (Auto) Not Reportable Lymph % (Auto) Not Reportable Coke % (Auto) Not Reportable Eos % (Auto) Not Reportable Baso % (Auto) Not Reportable Lymph # (Auto) Not Reportable Coke # (Auto) Not Reportable Eos # (Auto) Not Reportable Baso # (Auto) Not Reportable Abs Immat Gran (auto) Not Reportable Absolute Neuts (auto) Not Reportable Absolute Nucleated RBC Not Reportable Total Counted 100 Neutrophils % (Manual) 72 Band Neutrophils % 8 H Lymphocytes % (Manual) 16 L Monocytes % (Manual) 4 Nucleated RBC % Not Reportable Abs Neuts (Manual) 19.76 H Abs Lymphs (Manual) 3.95 Abs Monocytes (Manual) 0.98 H Platelet Estimate Increased Schistocytes None seen PT 12.9 INR 0.9 APTT 20.4 L Puncture Site Right radial ABG pH 7.364 ABG pCO2 36.6 ABG pO2 62.3 L ABG PO2/FiO2 Ratio 2.97 ABG HCO3 20.4 L ABG O2 Saturation 91.3 L ABG O2 Content 17.7 ABG Base Excess -4.3 A-a Gradient 43.6 Oxyhemoglobin 89.2 L Total Hemoglobin 14.1 O2 Delivery Device Room air O2 Liters/Min Not Reportable FiO2 21 Sodium 139 Potassium 3.6 Chloride 108 H Carbon Dioxide 20 L Anion Gap 11 BUN 29 H D Creatinine 1.30 H Estim Creat Clear Calc 55 Estimated GFR 43 L Glucose 177 H Hemoglobin A1c 5.4 Lactic Acid 2.8 H Calcium 9.4 Magnesium 2.2 Total Bilirubin 0.3 AST 28 ALT 24 Alkaline Phosphatase 96 Troponin I < 0.012 NT-Pro-B Natriuret Pep 107 H Total Protein 7.0 Albumin 4.1 Lipase 130 Procalcitonin 0.2 Urine Color Yellow Urine Appearance Cloudy H Urine pH 5.5 Ur Specific [place] 1.023 Urine Protein Negative Urine Glucose (UA) Negative Urine Ketones Negative Ur Blood (Man) Non-hemolyzed trace H Urine Nitrate Negative Urine Bilirubin Negative Urine Urobilinogen 0.2 Add Ur Microanalysis Reviewed Leukocyte Esterase Rfl 1+ H Urine RBC 6-10 H Urine WBC 21-50 H Ur Squamous Epith Cells Occasional Urine Bacteria None seen Urine Casts 11-20 Nasal MRSA (PCR) Urine Opiates Screen Negative Urine Methadone Screen Negative Ur Barbiturates Screen Negative Ur Phencyclidine Scrn Negative Ur Amphetamine Screen Negative U Benzodiazepines Scrn Negative Urine Cocaine Screen Negative U Cannabinoids Screen Negative Ethyl Alcohol < 10 Influenza A (RT-PCR) Influenza B (RT-PCR) RSV (RT-PCR) SARS-CoV-2 RNA (RT-PCR) Group A Strep (PCR) 07/06/24 07/06/24 07/06/24 11:11 13:55 15:47 WBC RBC Hgb Hct MCV MCH MCHC RDW Plt Count MPV Immature Gran % (Auto) Neut % (Auto) Lymph % (Auto) Coke % (Auto) Eos % (Auto) Baso % (Auto) Lymph # (Auto) [place]ke # (Auto) Eos # (Auto) Baso # (Auto) Abs Immat Gran (auto) Absolute Neuts (auto) Absolute Nucleated RBC Total Counted Neutrophils % (Manual) Band Neutrophils % Lymphocytes % (Manual) Monocytes % (Manual) Nucleated RBC % Abs Neuts (Manual) Abs Lymphs (Manual) Abs Monocytes (Manual) Platelet Estimate Schistocytes PT INR APTT Puncture Site ABG pH ABG pCO2 ABG pO2 ABG PO2/FiO2 Ratio ABG HCO3 ABG O2 Saturation ABG O2 Content ABG Base Excess A-a Gradient Oxyhemoglobin Total Hemoglobin O2 Delivery Device O2 Liters/Min FiO2 Sodium Potassium Chloride Carbon Dioxide Anion Gap BUN Creatinine Estim Creat Clear Calc Estimated GFR Glucose Hemoglobin A1c Lactic Acid 3.3 H Calcium Magnesium Total Bilirubin AST ALT Alkaline Phosphatase Troponin I < 0.012 NT-Pro-B Natriuret Pep Total Protein Albumin Lipase Procalcitonin Urine Color Urine Appearance Urine pH Ur Specific [place] Urine Protein Urine Glucose (UA) Urine Ketones Ur Blood (Man) Urine Nitrate Urine Bilirubin Urine Urobilinogen Add Ur Microanalysis Leukocyte Esterase Rfl Urine RBC Urine WBC Ur Squamous Epith Cells Urine Bacteria Urine Casts Nasal MRSA (PCR) Urine Opiates Screen Urine Methadone Screen Ur Barbiturates Screen Ur Phencyclidine Scrn Ur Amphetamine Screen U Benzodiazepines Scrn Urine Cocaine Screen U Cannabinoids Screen Ethyl Alcohol Influenza A (RT-PCR) Negative Influenza B (RT-PCR) Negative RSV (RT-PCR) Negative SARS-CoV-2 RNA (RT-PCR) Negative Group A Strep (PCR) 07/06/24 07/06/24 07/06/24 18:43 18:54 19:00 WBC RBC Hgb Hct MCV MCH MCHC RDW Plt Count MPV Immature Gran % (Auto) Neut % (Auto) Lymph % (Auto) Coke % (Auto) Eos % (Auto) Baso % (Auto) Lymph # (Auto) [place] # (Auto) Eos # (Auto) Baso # (Auto) Abs Immat Gran (auto) Absolute Neuts (auto) Absolute Nucleated RBC Total Counted Neutrophils % (Manual) Band Neutrophils % Lymphocytes % (Manual) Monocytes % (Manual) Nucleated RBC % Abs Neuts (Manual) Abs Lymphs (Manual) Abs Monocytes (Manual) Platelet Estimate Schistocytes PT INR APTT Puncture Site ABG pH ABG pCO2 ABG pO2 ABG PO2/FiO2 Ratio ABG HCO3 ABG O2 Saturation ABG O2 Content ABG Base Excess A-a Gradient Oxyhemoglobin Total Hemoglobin O2 Delivery Device O2 Liters/Min FiO2 Sodium Potassium Chloride Carbon Dioxide Anion Gap BUN Creatinine Estim Creat Clear Calc Estimated GFR Glucose Hemoglobin A1c Lactic Acid Calcium Magnesium Total Bilirubin AST ALT Alkaline Phosphatase Troponin I NT-Pro-B Natriuret Pep Total Protein Albumin Lipase Procalcitonin Urine Color Urine Appearance Urine pH Ur Specific [place] Urine Protein Urine Glucose (UA) Urine Ketones Ur Blood (Man) Urine Nitrate Urine Bilirubin Urine Urobilinogen Add Ur Microanalysis Leukocyte Esterase Rfl Urine RBC Urine WBC Ur Squamous Epith Cells Urine Bacteria Urine Casts Nasal MRSA (PCR) Not detected Urine Opiates Screen Urine Methadone Screen Ur Barbiturates Screen Ur Phencyclidine Scrn Ur Amphetamine Screen U Benzodiazepines Scrn Urine Cocaine Screen U Cannabinoids Screen Ethyl Alcohol Influenza A (RT-PCR) Negative Influenza B (RT-PCR) Negative RSV (RT-PCR) Negative SARS-CoV-2 RNA (RT-PCR) Negative Group A Strep (PCR) Not detected 07/07/24 04:34 WBC 13.8 H RBC 3.68 L Hgb 12.2 Hct 37.7 MCV 102.4 H MCH 33.2 MCHC 32.4 RDW 14.7 H Plt Count 296 MPV 8.6 Immature Gran % (Auto) 0.9 H Neut % (Auto) 54.4 Lymph % (Auto) 34.2 Coke % (Auto) 9.1 H Eos % (Auto) 1.0 Baso % (Auto) 0.4 Lymph # (Auto) 4.72 H Coke # (Auto) 1.3 H Eos # (Auto) 0.1 Baso # (Auto) 0.1 Abs Immat Gran (auto) 0.12 H Absolute Neuts (auto) 7.5 H Absolute Nucleated RBC 0.000 Total Counted Neutrophils % (Manual) Band Neutrophils % Lymphocytes % (Manual) Monocytes % (Manual) Nucleated RBC % 0.0 Abs Neuts (Manual) Abs Lymphs (Manual) Abs Monocytes (Manual) Platelet Estimate Schistocytes PT INR APTT Puncture Site ABG pH ABG pCO2 ABG pO2 ABG PO2/FiO2 Ratio ABG HCO3 ABG O2 Saturation ABG O2 Content ABG Base Excess A-a Gradient Oxyhemoglobin Total Hemoglobin O2 Delivery Device O2 Liters/Min FiO2 Sodium 141 Potassium 3.0 L Chloride 114 H Carbon Dioxide 22 Anion Gap 5 BUN 14 D Creatinine 0.80 Estim Creat Clear Calc 88 Estimated GFR > 60 Glucose 80 Hemoglobin A1c Lactic Acid 2.0 Calcium 8.5 Magnesium 1.8 Total Bilirubin 0.2 AST 23 ALT 20 Alkaline Phosphatase 80 Troponin I NT-Pro-B Natriuret Pep Total Protein 6.0 L Albumin 3.4 L Lipase Procalcitonin Urine Color Urine Appearance Urine pH Ur Specific [place] Urine Protein Urine Glucose (UA) Urine Ketones Ur Blood (Man) Urine Nitrate Urine Bilirubin Urine Urobilinogen Add Ur Microanalysis Leukocyte Esterase Rfl Urine RBC Urine WBC Ur Squamous Epith Cells Urine Bacteria Urine Casts Nasal MRSA (PCR) Urine Opiates Screen Urine Methadone Screen Ur Barbiturates Screen Ur Phencyclidine Scrn Ur Amphetamine Screen U Benzodiazepines Scrn Urine Cocaine Screen U Cannabinoids Screen Ethyl Alcohol Influenza A (RT-PCR) Influenza B (RT-PCR) RSV (RT-PCR) SARS-CoV-2 RNA (RT-PCR) Group A Strep (PCR)
[2024-07-07 08:02] LABS: Glucose Point of Care 97 mg/dl (65-105)
[2024-07-07] MEDS: LACTATED RINGERS 1,000 ML 999 ML IV CONT (08:13)
[2024-07-07] MEDS: POTASSIUM CHLORIDE 20 MEQ PACKET (FOR LIQUID) 40 MEQ PO ×2 (08:14→13:54)
[2024-07-07] MEDS: GABAPENTIN 100 MG CAPSULE PO ×3 (08:15→16:53)
[2024-07-07] MEDS: buPROPion HCL SR (12 HR) 150 MG TAB PO (08:15)
[2024-07-07] MEDS: VENLAFAXINE HCL XR 75 MG CAP.ER.24H PO (08:15)
[2024-07-07] MEDS: PANTOPRAZOLE SODIUM IV 40 MG VIAL IV PUSH (08:15)
--- NOTE | 2024-07-07 09:12 | WPDCNINT ---
Assessment and Plan Assessment and plan (1) Severe sepsis: Code(s): A41.9 - Sepsis, unspecified organism; R65.20 - Severe sepsis without septic shock Status: Acute Assessment and Plan: Patient presented with altered mental status, hypotension, tachycardia, elevated lactic acidosis -CT abdomen pelvis showed a 0.9 mm right proximal ureter stone stone with hydronephrosis -adequately fluid-resuscitated -07/06/2024: status post cystoscopy, right retrograde pyelogram, placement of right ureteral stent by Urology -repeat lactic acid levels are normal -blood pressures have been stable, not requiring any vasopressors -urine output has been good with improvement and had creatinine back to baseline and normal -continue vancomycin and cefepime (07/06) -additional IV fluid bolus as patient is tachycardic (2) Hydronephrosis with urinary obstruction due to ureteral calculus: Code(s): N13.2 - Hydronephrosis with renal and ureteral calculous obstruction Status: Acute Assessment and Plan: 0.9 mm right proximal ureter stone stone with hydronephrosis. Status post cystoscopy, right retrograde pyelogram, placement of right ureteral stent on 07/06/2024 -urology following the patient (3) Pyelonephritis: Code(s): N12 - Tubulo-interstitial nephritis, not specified as acute or chronic Status: Acute Assessment and Plan: As above (4) Type 2 diabetes mellitus: Code(s): E11.9 - Type 2 diabetes mellitus without complications Status: Acute Assessment and Plan: Sliding scale insulin Accu-Cheks (5) Generalized anxiety disorder: Code(s): F41.1 - Generalized anxiety disorder Status: Acute Assessment and Plan: Continue bupropion, gabapentin, venlafaxine (6) Depression: Code(s): F32.A - Depression, unspecified Status: Acute Assessment and Plan: Continue medications as above (7) Altered mental status: Code(s): R41.82 - Altered mental status, unspecified Status: Acute Assessment and Plan: Resolved likely related to hypotension, severe sepsis, pyelonephritis -CT brain did not show any acute intracranial hemorrhage -CTA head and neck with no large vessel occlusion (8) Acute kidney injury: Code(s): N17.9 - Acute kidney failure, unspecified Status: Acute Assessment and Plan: Patient presented with acute kidney injury, creatinine 1.30 on admission -adequately fluid-resuscitated -good urine output -creatinine this morning is 0.80 -continue monitor renal function, electrolytes and urine output Hypokalemia, potassium being replaced Plan DVT prophylaxis: Lovenox Stress ulcer prophylaxis: Not indicated Nutrition: Diabetic diet Code Status: Full code Critical Care Time Spent: 47 minutes Discussed with patient and her spouse at bedside and updated with patient's condition and plan of care. I updated them with the lab results. I answered all questions Due to a high probability of clinically significant, life threatening deterioration, the patient required my highest level of preparedness to intervene emergently and I personally spent this critical care time directly and personally managing the patient. This critical care time included obtaining a history; examining the patient; pulse oximetry; ordering and review of studies; arranging urgent treatment with development of a management plan; evaluation of patient's response to treatment; frequent reassessment; and discussions with other providers. It was exclusive of separately billable procedures and treating other patients and teaching time. Please see Assessment and Plan section and the rest of the note for further information on patient assessment and treatment This dictation may have been done utilizing a voice recognition system. Attempts have been made to correct errors. However, there may be uncorrected grammatical, spelling, and recognitions errors present. Chief Legal Officer Consult Note Consult date: 07/07/24 Reason for consult: Severe sepsis altered mental status, 9 mm per right proximal ureteral stone status post cystoscopy, right retrograde pyelogram, placement of right ureteral stent on 07/06/2024 HPI: Veronica Evangelista is a 53 year old female with history of chronic pain, chronic GERD, kidney stones, depression, general anxiety disorder, essential hypertension, diabetes, presented to the ED on 07/06/2024 via EMS for altered mental status, vomiting, back pain. In the ER patient was hypotensive, received 4-5 L of IV fluid bolus with improvement in blood pressures. CT head with no evidence of acute intracranial abnormality. CTA head and neck showed no evidence of large vessel occlusion. WBC count was 24.7, hemoglobin 14.1, creatinine of 1.30, lactic acid of 2.8. UA was positive for UTI, CT scan of the abdomen and pelvis showed 9 mm mm proximal stone with hydronephrosis. Urology was consulted, patient was taken to the OR status post cystoscopy, right retrograde pyelogram and placement of right ureteral stent on 07/06/2024. Patient was transferred to the ICU for further management. Patient was started on cefepime and vancomycin, did not require any pressors Patient seen and examined the ICU this morning, is awake, alert, oriented, nonfocal. Denies any chest pain, shortness of breath, abdominal pain, nausea, vomiting. States she feels much better. Patient has been afebrile but very good urine output, WBC count has improved significantly, lactic has normalized, creatinine 0.8, potassium is 3.0. Review of Systems Review of Systems: All systems reviewed & are unremarkable except as noted in HPI and below PMFSH Past Medical History Medical History Type 2 diabetes mellitus Chronic back pain Kidney stones Chronic GERD Hypertension Anxiety and depression Surgical History Surgical History History of gastric bypass History of ureter stent History of cholecystectomy Family History Family History Mother Alcohol abuse Sibling Alcohol abuse Other Family history non-contributory Social History Social History (Updated 07/06/24 @ 22:21 by Brenda Gomez PA-C) Social History: Surrogate medical decision maker: Miguellalita Evangelista, spouse. Code status: Full code. Smoking status: Never smoker Second hand tobacco smoke exposure: No Alcohol intake: never Substance use: never Substance use type: does not use Do You Feel Safe in your Home?: Yes Lack of Transportation: No Lack of Food: Never True Current Housing: I Have Housing Concerned About Future Housing: No Difficulty Paying Gas/Electric Bills: No Difficulty Paying for Meds: No Currently Unemployed: No Education: Associate Degree Difficulty w/ Childcare or Family Care: No Additional living arrangements comments: Lives with , his 2 sons, and sister in [place]. 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 Spiritual care concerns: No Meds Home Medications and Allergies Home Medications ?Medication ?Instructions ?Recorded ?Confirmed ?Type bupropion HCl 150 mg tablet,12 hr 150 mg PO DAILY 04/18/21 07/06/24 History sustained-release hydrochlorothiazide 25 mg tablet 25 mg PO DAILY 04/18/21 07/06/24 History lorazepam 1 mg tablet 1 mg PO BID 04/18/21 07/06/24 History metformin 500 mg tablet See Rx Instructions .Route .COMPLEX 04/18/21 07/06/24 History venlafaxine 75 mg capsule,extended 75 mg PO DAILY 04/18/21 07/06/24 History release 24 hr zolpidem 10 mg tablet 10 mg PO HS sleep 04/18/21 07/06/24 History tirzepatide 2.5 mg/0.5 mL 12.5 mg subcut WEEKLY 06/12/23 07/06/24 History subcutaneous pen injector ([facility]ques) amlodipine 5 mg tablet 5 mg PO DAILY Hypertension 07/06/24 07/06/24 History estradiol 0.05 mg/24 hr semiweekly 0.075 mg transdermal .twice weekly 07/06/24 07/06/24 History transdermal patch (Marlys) gabapentin 100 mg capsule 100 mg PO TID 07/06/24 07/06/24 History hydroxyzine HCl 25 mg tablet 25 mg PO BID PRN anxiety 07/06/24 07/06/24 History ibuprofen 800 mg tablet 800 mg PO TID PRN pain 07/06/24 07/06/24 History lisinopril 40 mg tablet 40 mg PO DAILY Hypertension 07/06/24 07/06/24 History methocarbamol 750 mg tablet 750 mg PO TID PRN pain, muscle 07/06/24 07/06/24 History spasms metoprolol tartrate 100 mg tablet 100 mg PO BID 07/06/24 07/06/24 History pantoprazole 20 mg tablet,delayed 20 mg PO DAILY 07/06/24 07/06/24 History release progesterone micronized 200 mg 200 mg PO HS 07/06/24 07/06/24 History capsule Allergies Allergy/AdvReac Type Severity Reaction Status Date / Time olanzapine (From Zyprexa) AdvReac Agitated Verified 07/06/24 16:38 trazodone AdvReac Hallucinati Verified 07/06/24 11:27 ng Vital Signs Vital Signs - 24 hr 07/06/24 10:41 07/06/24 10:48 07/06/24 10:49 Temperature 97 F L Pulse Rate 84 86 86 Respiratory Rate 18 14 15 Blood Pressure 103/69 103/69 Pulse Oximetry 93 90 92 Oxygen Delivery Room Air Oxygen Flow Rate 07/06/24 11:00 07/06/24 11:01 07/06/24 11:15 Temperature Pulse Rate 86 87 85 Respiratory Rate 20 18 17 Blood Pressure 102/54 L 90/53 L Pulse Oximetry 92 93 93 Oxygen Delivery Oxygen Flow Rate 07/06/24 11:16 07/06/24 11:30 07/06/24 11:47 Temperature Pulse Rate 84 84 Respiratory Rate 18 13 Blood Pressure Pulse Oximetry 97 98 100 Oxygen Delivery Nasal Cannula Oxygen Flow Rate 2 07/06/24 11:48 07/06/24 11:49 07/06/24 12:00 Temperature Pulse Rate 84 84 85 Respiratory Rate 17 14 20 Blood Pressure 94/55 L 88/58 L Pulse Oximetry 97 96 94 Oxygen Delivery Oxygen Flow Rate 07/06/24 12:15 07/06/24 12:16 07/06/24 12:58 Temperature Pulse Rate 85 84 85 Respiratory Rate 19 19 17 Blood Pressure 84/42 L 90/60 L Pulse Oximetry 95 96 Oxygen Delivery Oxygen Flow Rate 07/06/24 13:00 07/06/24 13:01 07/06/24 13:05 Temperature Pulse Rate 86 86 87 Respiratory Rate 15 16 17 Blood Pressure 76/54 L 80/53 L Pulse Oximetry 99 Oxygen Delivery Oxygen Flow Rate 07/06/24 13:13 07/06/24 13:15 07/06/24 13:16 Temperature Pulse Rate 87 86 86 Respiratory Rate 13 15 17 Blood Pressure 81/55 L 82/52 L Pulse Oximetry 100 100 98 Oxygen Delivery Oxygen Flow Rate 07/06/24 13:20 07/06/24 13:21 07/06/24 13:25 Temperature Pulse Rate 87 87 87 Respiratory Rate 20 16 15 Blood Pressure 74/42 L 73/44 L Pulse Oximetry 95 95 97 Oxygen Delivery Oxygen Flow Rate 07/06/24 13:30 07/06/24 13:31 07/06/24 13:33 Temperature Pulse Rate 87 86 86 Respiratory Rate 18 14 16 Blood Pressure 72/43 L 71/50 L Pulse Oximetry 93 96 91 Oxygen Delivery Oxygen Flow Rate 07/06/24 13:35 07/06/24 13:40 07/06/24 13:42 Temperature Pulse Rate 86 90 86 Respiratory Rate 18 19 17 Blood Pressure 74/40 L 74/44 L 90/41 L Pulse Oximetry 92 95 95 Oxygen Delivery Oxygen Flow Rate 07/06/24 13:45 07/06/24 13:46 07/06/24 13:50 Temperature Pulse Rate 86 86 87 Respiratory Rate 16 19 14 Blood Pressure 75/45 L 88/58 L Pulse Oximetry 94 96 95 Oxygen Delivery Oxygen Flow Rate 07/06/24 13:55 07/06/24 14:00 07/06/24 14:05 Temperature Pulse Rate 88 88 96 Respiratory Rate 17 19 17 Blood Pressure 98/55 L 87/54 L 90/60 L Pulse Oximetry 94 98 Oxygen Delivery Oxygen Flow Rate 07/06/24 14:10 07/06/24 14:15 07/06/24 14:16 Temperature Pulse Rate 88 88 88 Respiratory Rate 17 15 15 Blood Pressure 80/54 L 92/64 L Pulse Oximetry 93 98 Oxygen Delivery Oxygen Flow Rate 07/06/24 14:21 07/06/24 15:30 07/06/24 15:45 Temperature 97.5 F L Pulse Rate 89 94 94 Respiratory Rate 18 19 16 Blood Pressure 90/79 L 76/29 L 87/62 L Pulse Oximetry 99 100 100 Oxygen Delivery Oxygen Flow Rate 07/06/24 16:00 07/06/24 16:00 07/06/24 16:00 Temperature Pulse Rate 95 95 Respiratory Rate 17 17 Blood Pressure 82/60 L Pulse Oximetry 100 100 Oxygen Delivery Room Air Oxygen Flow Rate 07/06/24 16:15 07/06/24 18:00 07/06/24 18:00 Temperature Pulse Rate 96 103 H 97 Respiratory Rate 17 23 H Blood Pressure 99/70 L 116/81 Pulse Oximetry 100 99 Oxygen Delivery Oxygen Flow Rate 07/06/24 20:00 07/06/24 20:00 07/06/24 20:00 Temperature 98.8 F Pulse Rate 97 111 H 111 H Respiratory Rate 23 H 27 H Blood Pressure 116/97 H Pulse Oximetry 99 95 Oxygen Delivery Room Air Oxygen Flow Rate 07/06/24 22:00 07/06/24 22:00 07/07/24 00:00 Temperature Pulse Rate 115 H 115 H 116 H Respiratory Rate 19 22 H Blood Pressure 142/56 H 103/73 Pulse Oximetry 93 91 Oxygen Delivery Oxygen Flow Rate 07/07/24 00:00 07/07/24 00:00 07/07/24 02:00 Temperature Pulse Rate 116 H 114 H 117 H Respiratory Rate 22 H Blood Pressure Pulse Oximetry 91 Oxygen Delivery Room Air Oxygen Flow Rate 07/07/24 02:00 07/07/24 04:00 07/07/24 04:00 Temperature Pulse Rate 117 H 117 H 115 H Respiratory Rate 21 H 21 H Blood Pressure 130/89 Pulse Oximetry 91 91 Oxygen Delivery Nasal Cannula Oxygen Flow Rate 2 07/07/24 04:00 07/07/24 06:00 07/07/24 06:00 Temperature 98.3 F 97.5 F L Pulse Rate 113 H 114 H 114 H Respiratory Rate 18 20 Blood Pressure 116/81 145/99 H Pulse Oximetry 98 99 Oxygen Delivery Oxygen Flow Rate 07/07/24 08:00 Temperature 98.4 F Pulse Rate 119 H Respiratory Rate 19 Blood Pressure 131/100 H Pulse Oximetry 100 Oxygen Delivery Oxygen Flow Rate Exam Narrative: General: Patient is awake, alert in no acute distress HEENT:? Pupils equal and reactive, sclera is clear, moist oral mucosa Neck:? Supple Respiratory:? Clear to auscultation bilaterally, no wheezing Cardiac:? S1-S2 is normal, sinus tachycardia Abdomen:? Soft, nontender, nondistended, normoactive bowel sounds Extremities:? Trace edema, palpable pedal pulses Neuro:? Patient is awake, alert, oriented, nonfocal, answers to questions appropriately and follows simple commands in all extremities Skin:? No lesions noted Psych:? Normal mentation and affect Results Labs 07/07/24 04:34 07/07/24 04:34 Labs: Short CBC 07/06/24 07/07/24 Range/Units 11:05 04:34 WBC 24.7 H 13.8 H (4.5-10.0) K/mm3 Hgb 14.1 12.2 (12.0-15.0) g/dL Hct 41.7 37.7 (37.0-47.0) % Plt Count 400 H 296 (150-375) k/mm3 BMP 07/06/24 07/07/24 11:05 04:34 Sodium 139 141 Potassium 3.6 3.0 L Chloride 108 H 114 H Carbon Dioxide 20 L 22 BUN 29 H D 14 D Creatinine 1.30 H 0.80 Glucose 177 H 80 Calcium 9.4 8.5 Cardiac Enzymes 07/06/24 07/06/24 Range/Units 11:05 13:55 Troponin I < 0.012 < 0.012 (0.000-0.034) ng/mL Liver Function 07/06/24 07/07/24 Range/Units 11:05 04:34 Total Bilirubin 0.3 0.2 (0.2-1.3) mg/dL AST 28 23 (14-36) U/L ALT 24 20 (6-35) U/L Alkaline Phosphatase 96 80 (38-126) U/L Albumin 4.1 3.4 L (3.5-5.1) g/dL Urine 07/06/24 Range/Units 11:04 Urine Color Yellow (Yellow) Urine Appearance Cloudy H (Clear) Urine pH 5.5 (5.0-9.0) Ur Specific [place] 1.023 (1.001-1.035) Urine Protein Negative (Negative) mg/dL Urine Glucose (UA) Negative (Negative) mg/dL Quality VTE Prophylaxis VTE prophylaxis: pharmacologic ordered Hospitalist MIPS Advance Care Plan I have confirmed that the patient's Advanced Care Plan is present, code status is documented, or surrogate decision maker is listed in patient medical record.: Yes Medication Reconciliation I have utilized all available resources to obtain, update and review the patients current medications (includes all prescriptions, OTC, herbals, cannabis, and nutritional supplements).: Yes
[2024-07-07] MEDS: LACTATED RINGERS 1,000 ML 75 ML IV CONT (09:14)
[2024-07-07] MEDS: VANCOMYCIN 1,500 MG/NS 500 ML 1,500 MG/500 ML BAG 250 MG IVPB (09:15)
[2024-07-07] MEDS: METOPROLOL TARTRATE 50 MG TAB 100 MG PO ×2 (10:39→20:23)
[2024-07-07] MEDS: ENOXAPARIN 40 MG/0.4 ML SYRINGE SUB-Q (10:39)
[2024-07-07 11:50] LABS: Glucose Point of Care 91 mg/dl (65-105)
--- NOTE | 2024-07-07 13:14 | PM.IMPN ---
Progress Note: A&P Assessment and Plan (1) Severe sepsis: Code(s): A41.9 - Sepsis, unspecified organism; R65.20 - Severe sepsis without septic shock Status: Acute (2) Hydronephrosis with urinary obstruction due to ureteral calculus: Code(s): N13.2 - Hydronephrosis with renal and ureteral calculous obstruction Status: Acute (3) Pyelonephritis: Code(s): N12 - Tubulo-interstitial nephritis, not specified as acute or chronic Status: Acute (4) Type 2 diabetes mellitus: Code(s): E11.9 - Type 2 diabetes mellitus without complications Status: Acute (5) Generalized anxiety disorder: Code(s): F41.1 - Generalized anxiety disorder Status: Acute (6) Depression: Code(s): F32.A - Depression, unspecified Status: Acute (7) Altered mental status: Code(s): R41.82 - Altered mental status, unspecified Status: Acute (8) Acute kidney injury: Code(s): N17.9 - Acute kidney failure, unspecified Status: Acute Plan This is a 53-year-old female with history of kidney stones, hypertension, type 2 diabetes mellitus, chronic back pain, anxiety, and depression who presented to the emergency department via EMS from home with decreased levels of responsiveness. The patient is somnolent but arousable at the time of initial evaluation however she cannot provide a good history and a majority the following is obtained from her . She was in her usual state of health when she got up this morning however as the morning progressed she seemed confused and thought she was hallucinating however she told him that she was ?having a conversation with Pranav.? Shortly thereafter she seemed to be asleep however was unable to arouse her though she was responsive to painful stimuli. Emergency services were summoned and on EMS arrival they reportedly found multiple empty pill bottles surrounding the patient and they gave her Narcan with no improvement; glucose at that time was 160. According to , the patient has been is a majority of her time in bed and has her medications at bedside. He found ?a mess of pills? on the bed and on the bedside table and he presumes that they were spilled which is not unusual for her. The patient tells me that she took her medications this morning and not more than what she is prescribed. remarks that she has been complaining of increasing back pain over the course of a week for which she has been taking ibuprofen without much benefit. He also states that she finished a course of antibiotics recently for ?laryngitis? and though symptoms have essentially resolved. She is able to tell me that she feels generally unwell. She denies fever, headache, neck ache, sore throat, cough, chest pain, shortness of breath, nausea, vomiting, diarrhea, dysuria, and hematuria. She also denies fall, head trauma, loss of consciousness, syncope, near syncope, focal weakness, paresthesias. There were no reports of facial asymmetry or slurred speech. In the ED: Blood pressures were stable on arrival but gradually declined to as low as 71/50. She has been afebrile since arrival. Labs were significant for WBC count of 24.7 with a% bands, BUN 29, creatinine 1.30, lactic acid 2.8, procalcitonin 0.2. Urinalysis was positive for 1+ leukocyte esterase, 6 to 10 RBC, 21 to 50 WBC. She was negative for influenza, RSV, COVID, and strep. Urine drug screen was negative. Ethyl alcohol level was undetectable. Head CT and CTA of the head and neck were without acute findings. CT of the chest, abdomen, and pelvis showed a 9 mm proximal to mid right ureteral stone with [id number] right hydroureteronephrosis, and a 14.6 cm simple appearing right ovarian cystic mass. She was given 3 L crystalloid bolus with improvement her blood pressures and she was taken to the OR where she underwent cystoscopy with right retrograde pyelogram and placement of right ureteral stent. She was brought to the ICU postoperatively as she was hypotensive however noninvasive cardiac output monitoring showed that she was fluid responsive and her blood pressures continue to improve with hydration. Next see continued to improve postoperatively. Sepsis with hypotension tachycardia tachypnea acute kidney injury and lactic acidosis. Source of infection likely septic ureteral stone. Right S post right ureteral stent placement BLESSING Encephalopathy Right ovarian cyst hypertension Chronic back pain type 2 diabetes Depression and anxiety DVT prophylaxis Lovenox Code status full code Subjective Date/time seen: 07/07/24 13:14 Interval history: No overnight events. Feeling better. Chronically tachycardic per patient. No shortness of breath or chest pain. Review of Systems Review of Systems: All systems reviewed & are unremarkable except as noted in HPI and below Exam Narrative: General: Patient is awake, alert in no acute distress HEENT:? Pupils equal and reactive, sclera is clear, moist oral mucosa Neck:? Supple Respiratory:? Clear to auscultation bilaterally, no wheezing Cardiac:? S1-S2 is normal, sinus tachycardia Abdomen:? Soft, nontender, nondistended, normoactive bowel sounds Extremities:? Trace edema, palpable pedal pulses Neuro:? Patient is awake, alert, oriented, nonfocal, answers to questions appropriately and follows simple commands in all extremities Skin:? No lesions noted Psych:? Normal mentation and affect Objective Data Vital Signs Vital Signs: Vital Signs - 24 hr 07/06/24 13:15 07/06/24 13:16 07/06/24 13:20 Temperature Pulse Rate 86 86 87 Respiratory Rate 15 17 20 Blood Pressure 82/52 L 74/42 L Pulse Oximetry 100 98 95 Oxygen Delivery Oxygen Flow Rate 07/06/24 13:21 07/06/24 13:25 07/06/24 13:30 Temperature Pulse Rate 87 87 87 Respiratory Rate 16 15 18 Blood Pressure 73/44 L 72/43 L Pulse Oximetry 95 97 93 Oxygen Delivery Oxygen Flow Rate 07/06/24 13:31 07/06/24 13:33 07/06/24 13:35 Temperature Pulse Rate 86 86 86 Respiratory Rate 14 16 18 Blood Pressure 71/50 L 74/40 L Pulse Oximetry 96 91 92 Oxygen Delivery Oxygen Flow Rate 07/06/24 13:40 07/06/24 13:42 07/06/24 13:45 Temperature Pulse Rate 90 86 86 Respiratory Rate 19 17 16 Blood Pressure 74/44 L 90/41 L 75/45 L Pulse Oximetry 95 95 94 Oxygen Delivery Oxygen Flow Rate 07/06/24 13:46 07/06/24 13:50 07/06/24 13:55 Temperature Pulse Rate 86 87 88 Respiratory Rate 19 14 17 Blood Pressure 88/58 L 98/55 L Pulse Oximetry 96 95 94 Oxygen Delivery Oxygen Flow Rate 07/06/24 14:00 07/06/24 14:05 07/06/24 14:10 Temperature Pulse Rate 88 96 88 Respiratory Rate 19 17 17 Blood Pressure 87/54 L 90/60 L 80/54 L Pulse Oximetry 98 Oxygen Delivery Oxygen Flow Rate 07/06/24 14:15 07/06/24 14:16 07/06/24 14:21 Temperature Pulse Rate 88 88 89 Respiratory Rate 15 15 18 Blood Pressure 92/64 L 90/79 L Pulse Oximetry 93 98 99 Oxygen Delivery Oxygen Flow Rate 07/06/24 15:30 07/06/24 15:45 07/06/24 16:00 Temperature 97.5 F L Pulse Rate 94 94 95 Respiratory Rate 19 16 17 Blood Pressure 76/29 L 87/62 L 82/60 L Pulse Oximetry 100 100 100 Oxygen Delivery Oxygen Flow Rate 07/06/24 16:00 07/06/24 16:00 07/06/24 16:15 Temperature Pulse Rate 95 96 Respiratory Rate 17 17 Blood Pressure 99/70 L Pulse Oximetry 100 100 Oxygen Delivery Room Air Oxygen Flow Rate 07/06/24 18:00 07/06/24 18:00 07/06/24 20:00 Temperature Pulse Rate 103 H 97 97 Respiratory Rate 23 H 23 H Blood Pressure 116/81 Pulse Oximetry 99 99 Oxygen Delivery Room Air Oxygen Flow Rate 07/06/24 20:00 07/06/24 20:00 07/06/24 22:00 Temperature 98.8 F Pulse Rate 111 H 111 H 115 H Respiratory Rate 27 H Blood Pressure 116/97 H Pulse Oximetry 95 Oxygen Delivery Oxygen Flow Rate 07/06/24 22:00 07/07/24 00:00 07/07/24 00:00 Temperature Pulse Rate 115 H 116 H 116 H Respiratory Rate 19 22 H 22 H Blood Pressure 142/56 H 103/73 Pulse Oximetry 93 91 91 Oxygen Delivery Room Air Oxygen Flow Rate 07/07/24 00:00 07/07/24 02:00 07/07/24 02:00 Temperature Pulse Rate 114 H 117 H 117 H Respiratory Rate 21 H Blood Pressure 130/89 Pulse Oximetry 91 Oxygen Delivery Oxygen Flow Rate 07/07/24 04:00 07/07/24 04:00 07/07/24 04:00 Temperature 98.3 F Pulse Rate 117 H 115 H 113 H Respiratory Rate 21 H 18 Blood Pressure 116/81 Pulse Oximetry 91 98 Oxygen Delivery Nasal Cannula Oxygen Flow Rate 2 07/07/24 06:00 07/07/24 06:00 07/07/24 08:00 Temperature 97.5 F L 98.4 F Pulse Rate 114 H 114 H 119 H Respiratory Rate 20 19 Blood Pressure 145/99 H 131/100 H Pulse Oximetry 99 100 Oxygen Delivery Oxygen Flow Rate 07/07/24 08:00 07/07/24 10:00 07/07/24 10:00 Temperature Pulse Rate 120 H 124 H 124 H Respiratory Rate 20 Blood Pressure 143/98 H Pulse Oximetry 97 Oxygen Delivery Oxygen Flow Rate 07/07/24 10:39 07/07/24 12:00 07/07/24 12:00 Temperature 98.4 F Pulse Rate 127 H 104 H 108 H Respiratory Rate 18 Blood Pressure 159/108 H Pulse Oximetry 96 Oxygen Delivery Oxygen Flow Rate Intake/Output Intake/Output: Intake & Output 07/04/24 07/05/24 07/06/24 07/07/24 23:59 23:59 23:59 23:59 Intake Total 2790 720 Output Total 1500 1550 Balance 1290 -830 Meds/Results Medications: Active Medications Generic Name Dose Route Start Last Admin Trade Name Freq PRN Reason Stop Dose Admin Acetaminophen 650 mg 07/06/24 14:21 Acetaminophen 325 Mg Tablet PO Q4H PRN Mild Pain (1-3) or Fever Bupropion HCl 150 mg 07/07/24 09:00 07/07/24 08:15 Bupropion Hcl Sr (12 Hr) 150 Mg Tab PO 150 mg DAILY ZINA Administration Dextrose 12.5 gm 07/06/24 22:26 Dextrose 50% 25 Gm/50 Ml Syringe IV PUSH PRN PRN Hypoglycemia Protocol Enoxaparin Sodium 40 mg 07/08/24 09:00 Enoxaparin 40 Mg/0.4 Ml Syringe SUB-Q DAILY ZINA Gabapentin 100 mg 07/07/24 09:00 07/07/24 08:15 Gabapentin 100 Mg Capsule PO 100 mg TID ZINA Administration Glucagon 1 mg 07/06/24 22:26 Glucagon For Inj 1 Mg Vial IM PRN PRN Hypoglycemia Protocol Glucose 15 gm 07/06/24 22:26 Glucose Oral Gel 15 Gm Of Glucse In 37.5 Gm Tube PO PRN PRN Hypoglycemia Protocol Hydroxyzine HCl 25 mg 07/06/24 22:28 Hydroxyzine Hcl 25 Mg Tablet PO BID PRN anxiety Cefepime HCl 2 gm in 50 mls @ 100 mls/hr 07/07/24 02:00 07/07/24 01:24 Maxipime 2 Gm/Ns 50 Ml IVPB 100 mls/hr Q12H ZINA Administration Dextrose 1,000 mls @ 100 mls/hr 07/06/24 22:26 Dextrose 5% 1,000 Ml IVPB PRN PRN Hypoglycemia Protocol Vancomycin HCl 1,500 mg in 500 mls @ 250 mls/hr 07/07/24 10:00 07/07/24 09:15 Vancomycin 1,500 Mg/Ns 500 Ml IVPB 250 mls/hr Q18H ZINA Administration Insulin Aspart 3 - 6 units 07/07/24 08:00 07/07/24 11:48 Insulin Aspart (*Bkc) 100 Units/Ml SUB-Q Not Given TIDWM ZINA Protocol Insulin Aspart 1 - 3 units 07/07/24 21:00 Insulin Aspart (*Bkc) 100 Units/Ml SUB-Q HS ZINA Protocol Methocarbamol 750 mg 07/06/24 22:28 Methocarbamol 750 Mg Tablet PO TID PRN pain, muscle spasms Metoprolol Tartrate 100 mg 07/07/24 10:35 07/07/24 10:39 Metoprolol Tartrate 50 Mg Tab PO 100 mg Q12HR ZINA Administration Miscellaneous Information 1 each 07/06/24 00:01 (Progesterone Micronized 200 Mg Capsule) Is Nonformulary, Can Patient Bring From Home? XX 08/05/24 00:00 CLARIFY ZINA Miscellaneous Information 1 each 07/06/24 00:01 (Estradiol [Marlys] 0.05 Mg/24 Hr Patch Semiweekly) Is Nonformulary, Can Patient Bring From XX 08/05/24 00:00 CLARIFY ZINA Non-Formulary Medication 0.075 mg 07/06/24 22:30 Estradiol [Marlys] TRANSDERM 08/05/24 22:29 .twice weekly ZINA Non-Formulary Medication 200 mg 07/07/24 21:00 Progesterone Micronized PO 08/06/24 20:59 HS ZINA Pantoprazole Sodium 40 mg 07/07/24 09:00 07/07/24 08:15 Pantoprazole Sodium Iv 40 Mg Vial IV PUSH 40 mg QAM ZINA Administration Vancomycin HCl 1 each 07/06/24 16:33 Vancomycin For Acute Kidney Injury IVPB PRN PRN Vancomycin Protocol Venlafaxine HCl 75 mg 07/07/24 09:00 07/07/24 08:15 Venlafaxine Hcl Xr 75 Mg Cap.Er.24h PO 75 mg DAILY ZINA Administration Radiology Results: ITS Impressions Head CT 07/06/24 12:03 Impression: No significant abnormality seen. Chest X-Ray 07/06/24 12:04 Impression: Central congestive change and possible mild central and left basilar pulmonary edema. Head/Neck CTA 07/06/24 12:50 Impression: No significant vascular abnormality. Chest/Abdomen/Pelvis CT 07/06/24 12:52 Impression: 9 mm proximal to mid right ureteral stone with mild to moderate right hydroureteronephrosis to this level. 14.6 cm simple appearing right ovarian cystic mass. Gynecological follow-up advised. Renal Ultrasound 07/07/24 08:24 IMPRESSION: Mild right hydronephrosis. Right adnexal cystic mass measuring 14.3 cm. Further evaluation advised. Labs Labs: Laboratory Results - last 24 hr 07/06/24 07/06/24 07/06/24 11:04 13:55 15:47 WBC RBC Hgb Hct MCV MCH MCHC RDW Plt Count MPV Immature Gran % (Auto) Neut % (Auto) Lymph % (Auto) [place] % (Auto) Eos % (Auto) Baso % (Auto) Lymph # (Auto) [place] # (Auto) Eos # (Auto) Baso # (Auto) Abs Immat Gran (auto) Absolute Neuts (auto) Absolute Nucleated RBC Nucleated RBC % Sodium Potassium Chloride Carbon Dioxide Anion Gap BUN Creatinine Estim Creat Clear Calc Estimated GFR Glucose POC Capillary Glucose Hemoglobin A1c 5.4 Lactic Acid 3.3 H Calcium Magnesium Total Bilirubin AST ALT Alkaline Phosphatase Troponin I < 0.012 Total Protein Albumin Nasal MRSA (PCR) Influenza A (RT-PCR) Influenza B (RT-PCR) RSV (RT-PCR) SARS-CoV-2 RNA (RT-PCR) Group A Strep (PCR) 07/06/24 07/06/24 07/06/24 18:43 18:54 19:00 WBC RBC Hgb Hct MCV MCH MCHC RDW Plt Count MPV Immature Gran % (Auto) Neut % (Auto) Lymph % (Auto) [place] % (Auto) Eos % (Auto) Baso % (Auto) Lymph # (Auto) [place] # (Auto) Eos # (Auto) Baso # (Auto) Abs Immat Gran (auto) Absolute Neuts (auto) Absolute Nucleated RBC Nucleated RBC % Sodium Potassium Chloride Carbon Dioxide Anion Gap BUN Creatinine Estim Creat Clear Calc Estimated GFR Glucose POC Capillary Glucose Hemoglobin A1c Lactic Acid Calcium Magnesium Total Bilirubin AST ALT Alkaline Phosphatase Troponin I Total Protein Albumin Nasal MRSA (PCR) Not detected Influenza A (RT-PCR) Negative Influenza B (RT-PCR) Negative RSV (RT-PCR) Negative SARS-CoV-2 RNA (RT-PCR) Negative Group A Strep (PCR) Not detected 07/07/24 07/07/24 07/07/24 04:34 08:00 11:47 WBC 13.8 H RBC 3.68 L Hgb 12.2 Hct 37.7 MCV 102.4 H MCH 33.2 MCHC 32.4 RDW 14.7 H Plt Count 296 MPV 8.6 Immature Gran % (Auto) 0.9 H Neut % (Auto) 54.4 Lymph % (Auto) 34.2 [place] % (Auto) 9.1 H Eos % (Auto) 1.0 Baso % (Auto) 0.4 Lymph # (Auto) 4.72 H [place] # (Auto) 1.3 H Eos # (Auto) 0.1 Baso # (Auto) 0.1 Abs Immat Gran (auto) 0.12 H Absolute Neuts (auto) 7.5 H Absolute Nucleated RBC 0.000 Nucleated RBC % 0.0 Sodium 141 Potassium 3.0 L Chloride 114 H Carbon Dioxide 22 Anion Gap 5 BUN 14 D Creatinine 0.80 Estim Creat Clear Calc 88 Estimated GFR > 60 Glucose 80 POC Capillary Glucose 97 91 Hemoglobin A1c Lactic Acid 2.0 Calcium 8.5 Magnesium 1.8 Total Bilirubin 0.2 AST 23 ALT 20 Alkaline Phosphatase 80 Troponin I Total Protein 6.0 L Albumin 3.4 L Nasal MRSA (PCR) Influenza A (RT-PCR) Influenza B (RT-PCR) RSV (RT-PCR) SARS-CoV-2 RNA (RT-PCR) Group A Strep (PCR)
[2024-07-07 16:44] LABS: Glucose Point of Care 109 mg/dl (65-105)
[2024-07-07] MEDS: guaiFENesin 12 HR 600 MG TABCR PO (16:53)
[2024-07-07] MEDS: LORazepam (*CRX) 1 MG TABLET PO (19:16)
[2024-07-07] MEDS: ZOLPIDEM TARTRATE (*CRX) 5 MG TABLET 10 MG PO (20:23)
[2024-07-08] VITALS (13 sets, daily range): BP systolic 121–129; BP diastolic 75–83; PULSE 107–128; RESP 16–18; TEMP 36.6–37.1; O2SAT 95–100
[2024-07-08] MEDS: CEFEPIME 2 GM/NS 50 ML 2 GM/50 ML BAG IVPB (01:28)
[2024-07-08 03:25] LABS: Basophils Absolute Auto 0.1 K/mm3 (0.0-0.1); Basophils Percent Auto 0.7 % (0.2-1.2); Eosinophils Absolute Auto 0.2 K/mm3 (0-0.3); Eosinophils Percent Auto 1.3 % (0-4.4); Hematocrit 36.3 % (37.0-47.0); Hemoglobin 11.5 g/dL (12.0-15.0); Immature Granulocyte Absolute 0.11 K/mm3 (0.00-0.031); Lymphocytes Absolute Auto 4.73 K/mm3 (0.9-3.2); Lymphocytes Percent Auto 41.6 % (18.3-44.2); Mean Corpuscular HGB Conc 31.7 g/dl (32-36); Mean Corpuscular Hemoglobin 32.7 pg (26-34); Mean Corpuscular Volume 103.1 fl (80-100); Mean Platelet Volume 8.7 fl (7.4-10.4); Monocytes Percent Auto 8.7 % (2.6-8.5); Neutrophils Absolute Auto 5.3 K/mm3 (1.3-6.7); Neutrophils Percent Auto 46.7 % (45.5-73.1); Platelet Count Result 298 k/mm3 (150-375); Red Blood Count 3.52 M/mm3 (4.2-5.4); White Blood Count 11.4 K/mm3 (4.5-10.0)
[2024-07-08 03:38] LABS: Alanine Aminotransferase 19 U/L (6-35); Alkaline Phosphatase 67 U/L (38-126); Anion Gap 5 mmol/L (4-12); Aspartate Amino Transferase 22 U/L (14-36); Bilirubin,Total 0.2 mg/dL (0.2-1.3); Blood Urea Nitrogen 12 mg/dL (7-17); Calcium 8.5 mg/dL (8.4-10.2); Carbon Dioxide 24 mmol/L (22-30); Chloride 111 mmol/L (98-107); Estimated CRCL calculation 98 ml/min; Estimated Glomerular Filt Rate > 60; Glucose 123 mg/dL (65-110); Magnesium 1.8 mg/dL (1.6-2.3); Potassium 3.6 mmol/L (3.4-5.0); Sodium 140 mmol/L (137-145)
[2024-07-08 03:42] LABS: Vancomycin Trough 8.7 ug/mL (10.0-20.0)
--- NOTE | 2024-07-08 04:30 | PC.NURSE ---
Patient to room 231. Report given to Lorin TOM. All patient belongings gathered and transferred with patient.
[2024-07-08] MEDS: VANCOMYCIN 1,750 MG/NS 500 ML 1,750 MG/500 ML BAG 250 MG IVPB (05:00)
[2024-07-08 08:06] LABS: Glucose Point of Care 106 mg/dl (65-105)
[2024-07-08] MEDS: METOPROLOL TARTRATE 50 MG TAB 100 MG PO (08:11)
[2024-07-08] MEDS: LORazepam (*CRX) 1 MG TABLET PO (08:11)
[2024-07-08] MEDS: VENLAFAXINE HCL XR 75 MG CAP.ER.24H PO (08:11)
[2024-07-08] MEDS: PANTOPRAZOLE SODIUM IV 40 MG VIAL IV PUSH (08:12)
[2024-07-08] MEDS: buPROPion HCL SR (12 HR) 150 MG TAB PO (08:12)
[2024-07-08] MEDS: amLODIPine BESYLATE 5 MG TABLET PO (08:12)
[2024-07-08] MEDS: ENOXAPARIN 40 MG/0.4 ML SYRINGE SUB-Q (08:12)
[2024-07-08] MEDS: GABAPENTIN 100 MG CAPSULE PO ×2 (08:12→12:32)
[2024-07-08 11:58] LABS: Glucose Point of Care 124 mg/dl (65-105)
[2024-07-08] MEDS: CEFDINIR 300 MG CAPSULE PO (12:32)
--- NOTE | 2024-07-08 14:24 | P.DS_ITS ---
DS: Admitting Diagnosis Discharge Date 07/08/2024 Admitting Diagnosis Altered mental status DS: Discharge Diagnosis Discharge Diagnosis (1) Severe sepsis: Code(s): A41.9 - Sepsis, unspecified organism; R65.20 - Severe sepsis without septic shock Status: Acute (2) Hydronephrosis with urinary obstruction due to ureteral calculus: Code(s): N13.2 - Hydronephrosis with renal and ureteral calculous obstruction Status: Acute (3) Pyelonephritis: Code(s): N12 - Tubulo-interstitial nephritis, not specified as acute or chronic Status: Acute (4) Type 2 diabetes mellitus: Code(s): E11.9 - Type 2 diabetes mellitus without complications Status: Acute (5) Generalized anxiety disorder: Code(s): F41.1 - Generalized anxiety disorder Status: Acute (6) Depression: Code(s): F32.A - Depression, unspecified Status: Acute (7) Altered mental status: Code(s): R41.82 - Altered mental status, unspecified Status: Acute (8) Acute kidney injury: Code(s): N17.9 - Acute kidney failure, unspecified Status: Acute DS: Summary Hospital Course Hospital Course: This is a 53-year-old female with history of kidney stones, hypertension, type 2 diabetes mellitus, chronic back pain, anxiety, and depression who presented to the emergency department via EMS from home with decreased levels of responsiveness. The patient is somnolent but arousable at the time of initial evaluation however she cannot provide a good history and a majority the following is obtained from her . She was in her usual state of health when she got up this morning however as the morning progressed she seemed confused and thought she was hallucinating however she told him that she was ?having a conversation with Pranav.? Shortly thereafter she seemed to be asleep however was unable to arouse her though she was responsive to painful stimuli. Emergency services were summoned and on EMS arrival they reportedly found multiple empty pill bottles surrounding the patient and they gave her Narcan with no improvement; glucose at that time was 160. According to , the patient has been is a majority of her time in bed and has her medications at bedside. He found ?a mess of pills? on the bed and on the bedside table and he presumes that they were spilled which is not unusual for her. The patient tells me that she took her medications this morning and not more than what she is prescribed. remarks that she has been complaining of increasing back pain over the course of a week for which she has been taking ibuprofen without much benefit. He also states that she finished a course of antibiotics recently for ?laryngitis? and though symptoms have essentially resolved. She is able to tell me that she feels generally unwell. She denies fever, headache, neck ache, sore throat, cough, chest pain, shortness of breath, nausea, vomiting, diarrhea, dysuria, and hematuria. She also denies fall, head trauma, loss of consciousness, syncope, near syncope, focal weakness, paresthesias. There were no reports of facial asymmetry or slurred speech. In the ED: Blood pressures were stable on arrival but gradually declined to as low as 71/50. She has been afebrile since arrival. Labs were significant for WBC count of 24.7 with a% bands, BUN 29, creatinine 1.30, lactic acid 2.8, procalcitonin 0.2. Urinalysis was positive for 1+ leukocyte esterase, 6 to 10 RBC, 21 to 50 WBC. She was negative for influenza, RSV, COVID, and strep. Urine drug screen was negative. Ethyl alcohol level was undetectable. Head CT and CTA of the head and neck were without acute findings. CT of the chest, abdomen, and pelvis showed a 9 mm proximal to mid right ureteral stone with [id number] right hydroureteronephrosis, and a 14.6 cm simple appearing right ovarian cystic mass. She was given 3 L crystalloid bolus with improvement her blood pressures and she was taken to the OR where she underwent cystoscopy with right retrograde pyelogram and placement of right ureteral stent. She was brought to the ICU postoperatively as she was hypotensive however noninvasive cardiac output terence toring showed that she was fluid responsive and her blood pressures continue to improve with hydration. Next see continued to improve postoperatively. Sepsis with hypotension tachycardia tachypnea acute kidney injury and lactic acidosis. Source of infection likely septic ureteral stone. Sepsis resolved. She has mild tachycardia which is chronic. Urine cultures negative. Blood culture negative to date. Will switch antibiotics to cefdinir at discharge. Right hydronephrosis post right ureteral stent placement. Follow-up with urology as outpatient basis for definitive stone management. BLESSING resolved Encephalopathy resolved likely due to sepsis Right ovarian cyst hypertension Chronic back pain type 2 diabetes Depression and anxiety DVT prophylaxis Lovenox Code status full code Time Spent with Patient Time attestation: Total time spent providing and/or coordinating discharge services: 35 minutes Exam Narrative: General: Patient is awake, alert in no acute distress HEENT:? Pupils equal and reactive, sclera is clear, moist oral mucosa Neck:? Supple Respiratory:? Clear to auscultation bilaterally, no wheezing Cardiac:? S1-S2 is normal, sinus tachycardia Abdomen:? Soft, nontender, nondistended, normoactive bowel sounds Extremities:? Trace edema, palpable pedal pulses Neuro:? Patient is awake, alert, oriented, nonfocal, answers to questions appropriately and follows simple commands in all extremities Skin:? No lesions noted Psych:? Normal mentation and affect DS: Data Data Completed and Pending Labs on day of discharge: Labs from last 24 hours 07/08/24 07/08/24 07/08/24 11:42 07:26 03:06 WBC 11.4 H RBC 3.52 L Hgb 11.5 L Hct 36.3 L MCV 103.1 H MCH 32.7 MCHC 31.7 L RDW 15.0 H Plt Count 298 MPV 8.7 Immature Gran % (Auto) 1.0 H Neut % (Auto) 46.7 Lymph % (Auto) 41.6 Dickens % (Auto) 8.7 H Eos % (Auto) 1.3 Baso % (Auto) 0.7 Lymph # (Auto) 4.73 H Dickens # (Auto) 1.0 H Eos # (Auto) 0.2 Baso # (Auto) 0.1 Abs Immat Gran (auto) 0.11 H Absolute Neuts (auto) 5.3 Absolute Nucleated RBC 0.000 Nucleated RBC % 0.0 Sodium 140 Potassium 3.6 Chloride 111 H Carbon Dioxide 24 Anion Gap 5 BUN 12 Creatinine 0.70 Estim Creat Clear Calc 98 Estimated GFR > 60 Glucose 123 H POC Capillary Glucose 124 H 106 H Calcium 8.5 Magnesium 1.8 Total Bilirubin 0.2 AST 22 ALT 19 Alkaline Phosphatase 67 Total Protein 6.0 L Albumin 3.0 L Vancomycin Trough 8.7 L 07/07/24 16:41 WBC RBC Hgb Hct MCV MCH MCHC RDW Plt Count MPV Immature Gran % (Auto) Neut % (Auto) Lymph % (Auto) Dickens % (Auto) Eos % (Auto) Baso % (Auto) Lymph # (Auto) Dickens # (Auto) Eos # (Auto) Baso # (Auto) Abs Immat Gran (auto) Absolute Neuts (auto) Absolute Nucleated RBC Nucleated RBC % Sodium Potassium Chloride Carbon Dioxide Anion Gap BUN Creatinine Estim Creat Clear Calc Estimated GFR Glucose POC Capillary Glucose 109 H Calcium Magnesium Total Bilirubin AST ALT Alkaline Phosphatase Total Protein Albumin Vancomycin Trough Preliminary micro results at discharge 07/06/24 12:19 Blood Culture - Preliminary Blood 07/06/24 11:05 Blood Culture - Preliminary Blood Procedures/Treatments: Procedure Note - Detailed Date of Procedure 07/06/24 Pre-op Diagnosis Obstructing right ureteral Stone, UTI,, Sepsis, Altered Mental Status Post-op Diagnosis Same Procedure Performed Cystoscopy, right retrograde pyelogram, placement of right ureteral stent Surgeon Aditya Schulte MD Anesthesia MAC Indications 53-year-old woman presented emergency department today with altered mental status found to have a 9 mm proximal right ureteral stone, leukocytosis, clinical picture concerning for severe sepsis taken to the operating room emergently for right ureteral stent placement. Findings Retained contrast in bladder and right renal pelvis from recent CT with IV contrast in the emergency department. No mucosal abnormalities visualized within the bladder Description of Procedure after obtaining informed consent proceed to the operating room. The patient was placed in supine position. SCD boots were placed. Mac anesthesia was induced. She was placed in lithotomy position and prepped and draped in usual sterile manner. She had been given cefepime in the emergency department this was not redosed. She was then prepped and draped in usual sterile manner. I began by passing well lubricated 22 Marshallese cystoscope per the urethra. Enter the bladder. The bladder was emptied of all urine. I performed a full endoscopic evaluation the bladder there was no obvious mucosal abnormality or other unexpected findings within the bladder. then focused my attention on the patient's right ureteral orifice. This was cannulated with a 5 Marshallese catheter. Over this Sensor wire was passed. This was able to be passed into the dilated renal pelvis which had retained contrast. A 5 Marshallese catheter was passed over the wire to the renal pelvis as well. This was done without much resistance along course of the ureter however of note the patient's ureter was somewhat tortuous coursing substantially near midline. Catheter was then withdrawn leaving the wire in place. Over this a 6 Marshallese variable length ureteral stent was placed. This was passed along the course of the ureter without much difficulty was able to enter the renal pelvis and at that level the wire was withdrawn a coil was visualized within the renal pelvis and the bladder. The bladder was emptied. A Jones catheter was placed. Completion x-ray stent remained in good position. This concluded the procedure which the patient tolerated without apparent complication. Plan will be for her to go directly to the ICU for further resuscitation and supportive care. Will need definitive stone management after clinical picture improves this was discussed with the patient and her Implants 6 Marshallese variable length ureteral stent Complications No immediate complications Imaging Radiologist's impression: ITS Impressions Head CT 07/06/24 12:03 Impression: No significant abnormality seen. Chest X-Ray 07/06/24 12:04 Impression: Central congestive change and possible mild central and left basilar pulmonary edema. Head/Neck CTA 07/06/24 12:50 Impression: No significant vascular abnormality. Chest/Abdomen/Pelvis CT 07/06/24 12:52 Impression: 9 mm proximal to mid right ureteral stone with mild to moderate right hydroureteronephrosis to this level. 14.6 cm simple appearing right ovarian cystic mass. Gynecological follow-up advised. Renal Ultrasound 07/07/24 08:24 IMPRESSION: Mild right hydronephrosis. Right adnexal cystic mass measuring 14.3 cm. Further evaluation advised. Discharge Plan Discharge Attending physician on discharge: Josh Padgett Consulting providers: Irina Treviño; Aditya Schulte Discharging Clinician: Josh Padgett Anticipated Discharge Date/Time: 07/08/24 14:27 Patient Disposition: Home, Self-Care Activity: as tolerated Diet: heart healthy Patient Instructions: Antibiotic Form Patient Language: Mosotho Stand Alone Forms: General Discharge Information Follow-up/Referrals: Jalen Covington MD [Physician] - 2 Weeks (call for appointment. evaluation on right ovarian mass) Adrien Wisdom MD [Physician] - 1 Week Patti,NEVAEH Newby [Primary Care Provider] - 1 Week Discharge Medications: New cefdinir 300 mg Capsule 300 mg PO Q12HR Qty: 9 0RF Continued Mounjaro 2.5 mg/0.5 mL pen injector 12.5 mg SUBCUT WEEKLY Patient Comments: Patient takes on Mondays. Rx Instructions: Inject 12.5 mg under skin every 7 days. metformin 500 mg tablet See Rx Instructions .ROUTE .COMPLEX Rx Instructions: 500 mg orally bupropion HCl 150 mg tablet sustained-release 12 hr 150 mg PO DAILY venlafaxine 75 mg capsule,extended release 24hr 75 mg PO DAILY hydrochlorothiazide 25 mg tablet 25 mg PO DAILY lorazepam 1 mg tablet 1 mg PO BID zolpidem 10 mg tablet 10 mg PO HS Rx Instructions: Take 1 tablet PO at HS amlodipine 5 mg tablet 5 mg PO DAILY estradiol [Marlys] 0.05 mg/24 hr patch semiweekly 0.075 mg transdermal .twice weekly Patient Comments: Patient takes on Sunday and . ibuprofen 800 mg tablet 800 mg PO TID PRN (Reason: pain) metoprolol tartrate 100 mg tablet 100 mg PO BID pantoprazole 20 mg tablet,delayed release (DR/EC) 20 mg PO DAILY methocarbamol 750 mg tablet 750 mg PO TID PRN (Reason: pain, muscle spasms) progesterone micronized 200 mg capsule 200 mg PO HS lisinopril 40 mg tablet 40 mg PO DAILY gabapentin 100 mg capsule 100 mg PO TID hydroxyzine HCl 25 mg tablet 25 mg PO BID PRN (Reason: anxiety) Date of admission: 07/06/24 18:11 Primary Care Provider: Clay,Keyonna Admitting Provider: Josh Padgett Attending physician on admission: Josh Padgett Condition: Stable
[2024-07-08] MEDS: guaiFENesin 12 HR 600 MG TABCR PO (14:26)
--- OUTSIDE RECORDS SUMMARY | 2024-07-10 22:57 | XMS_ITS | Encounter Summary ---
Author Organization [facility] Address [address] [place] [address]. [place], [place] [address] [place] [address] Care Team Providers Care Linoleum Layer Helper Name Role Phone Keyonna Armstrong Primary Care Provider [phone] Reason for Visit * Reason Onset Date Comments Consult 11/27/2023 Encounter Details Date Type Department Care Team (Late st Contact Info) Description 11/27/2023 [place] [address] Susi Parikh, RMA Consult Social History Tobacco Use Types Packs/Day Years Used Date Smoking Tobacco: Never Smokeless Tobacco: Never Alcohol Use Standard Drinks/Week Comments No 0 (1 standard drink = 0.6 oz pur e alcohol) Humiliation, Afraid, Rape, and Kick questionnair e Answer Date Recorded Fear of Current or Ex-Partner Patient declined 0 01/06/2020 Emotionally Abused Patient declined 01/06/2020 Physically Abused Patient declined 01/06/2020 Sexually Abused Patient declined 01/06/2020 AUDIT-C Answer Date Recorded Frequency of Alcohol Consumption Never 06/11/2018 Average Number of Drinks Not on file 018 Frequency of Binge Drinking Not on file 05/24 PHQ-2 Answer Date Recorded Patient Health Questionnaire-2 Score 0 12/11/2022 Comments No Sex and Gender Information Value Date Recorded Sex Assigned at Not on file Legal Sex Female 5:47 PM CDT Gender Identity Female 07/17/2022 10:27 AM PIPE CAULKER Sexual Orientation Straight 07/17/2022 10 :27 AM PIPE CAULKER documented as of this encounter Progress Notes * TINO Knowles - 11/27/2023 1:44 PM CDT Left message to schedule cardiology consult per Keyonna Armstrong NP documented in this encounter Plan of Treatment Upcoming Encounters Date Type Department Care Team (Late st Contact Info) Description 07/25/2024 10:00 AM PIPE CAULKER Office Visit [facility] Family & Internal Medicine - [place] [address] [place] [address] Keyonna Armstrong APNP [address] [place] [address] 07/31/2024 10:15 AM PIPE CAULKER Office Visit [facility], [facility] [address] [place] [address] Pepe Mitchell MD Three [facility]. [facility] [address] [place] [address] documented as of this encounter Visit Diagnoses Not on filedocumented in this encounter Additional Health Concerns Assessment Noted Time PHQ-9 Depression Total Score: 22 020 3:46 PM PIPE CAULKER documented as of this encounter Care Teams Linoleum Layer Helper Relationship Specialty Start Date End Date Keyonna Armstrong APNP [facility] [place] [address] PCP - General NURSE PRACTITIONER 05/06/18 documented as of this encounter
--- OUTSIDE RECORDS SUMMARY | 2024-07-10 22:57 | XMS_ITS | Encounter Summary ---
Author Organization [facility] Address [address] [place] [address]. [place], [place] [address] [place] [address] Care Team Providers Care Ground Surveillance Systems Operator Name Role Phone Keyonna Armstrong Primary Care Provider [phone] Encounter Details Date Type Department Care Team (Latest Contact Info) Description 04/29/2024 Scan HEALTH INFO SRVCS Scanned, Doc Med Group Social History Tobacco Use Types Packs/Day Years [...] CDT Gender Identity Female 07/17/2022 10:27 AM RN DISCHARGE Sexual Orientation Straight 07/17/2022 10 :27 AM RN DISCHARGE documented as of this encounter Plan of Treatment Upcoming Encounters Date Type Department Care Team ( Contact Info) Description 07/25/2024 10:00 AM RN DISCHARGE Office Visit [facility] Family & Internal Medicine [address] [phone] Keyonna Armstrong APNP [address] [place] [address] 07/31/2024 10:15 AM RN DISCHARGE Office Visit [facility], [facility] [address] [place], [place] [address] Pepe Mitchell MD Three [facility]. [facility] [address] [place] [address] documented as of this encounter Visit Diagnoses Not on filedocumented in this encounter Additional Health Concerns Assessment Noted Time PHQ-9 Depression Total Score: 22 020 3:46 PM RN DISCHARGE documented as of this encounter Care Teams Ground Surveillance Systems Operator Relationship Specialty Start Date End Date Keyonna Armstrong APNP [address] [place] [address] PCP - General NURSE PRACTITIONER 05/06/18 documented as of this encounter
--- OUTSIDE RECORDS SUMMARY | 2024-07-10 22:57 | XMS_ITS | Encounter Summary ---
Author Organization [facility] Address [address] [place] [address]. [place], [place] [address] [place] [address] Care Team Providers Care Ultrasound Manager Name Role Phone Keyonna Armstrong Primary Care Provider [phone] Encounter Details Date Type Department Care Team (Latest Contact Info) Description 03/31/2024 Scan HEALTH INFO SRVCS Scanned, Doc Med [...] CDT Gender Identity Female 07/17/2022 10:27 AM QUARRY PLANT CRUSHER OPERATOR Sexual Orientation Straight 07/17/2022 10 :27 AM QUARRY PLANT CRUSHER OPERATOR documented as of this encounter Plan of Treatment Upcoming Encounters Date Type Department Care Team ( Contact Info) Description 07/25/2024 10:00 AM QUARRY PLANT CRUSHER OPERATOR Office Visit [facility] Family & Internal Medicine [address] [address] Keyonna Armstrong APNP [address] [place] [address] 07/31/2024 10:15 AM QUARRY PLANT CRUSHER OPERATOR Office Visit [facility], [facility] [address] [place], [place] [address] Pepe Mitchell MD Three [facility]. [facility] [address] [place] [address] documented as of this encounter Visit Diagnoses Not on filedocumented in this encounter Additional Health Concerns Assessment Noted Time PHQ-9 Depression Total Score: 22 020 3:46 PM QUARRY PLANT CRUSHER OPERATOR documented as of this encounter Care Teams Ultrasound Manager Relationship Specialty Start Date End Date Keyonna Armstrong APNP [address] [place] [address] PCP - General NURSE PRACTITIONER 05/06/18 documented as of this encounter
--- OUTSIDE RECORDS SUMMARY | 2024-07-10 22:57 | XMS_ITS | Encounter Summary ---
Author Organization [facility] Address [address] [place] [address]. [place], [place] [id number] [place] [address] Care Team Providers Care Ladle Repairer Name Role Phone Keyonna Armstrong Primary Care Provider [phone] Encounter Details Date Type Department Care Team (Latest Contact Info) Description 01/04/2024 Travel Social History Tobacco Use Types Packs/Day Years [...] CDT Gender Identity Female 07/17/2022 10:27 AM CONTROL SYSTEM MANAGER Sexual Orientation Straight 07/17/2022 10 :27 AM CONTROL SYSTEM MANAGER documented as of this encounter Plan of Treatment Upcoming Encounters Date Type Department Care Team (Late st Contact Info) Description 07/25/2024 10:00 AM CONTROL SYSTEM MANAGER Office Visit [facility] Family & Internal Medicine [address] [phone] Keyonna Armstrong APNP [address] [place] [address] 07/31/2024 10:15 AM CONTROL SYSTEM MANAGER Office Visit [facility], [facility] [address] [place], [place] [phone] Pepe Mitchell MD Three [facility]. [facility] [address] [place], [place] [id number] documented as of this encounter Visit Diagnoses Not on filedocumented in this encounter Additional Health Concerns Assessment Noted Time PHQ-9 Depression Total Score: 22 020 3:46 PM CONTROL SYSTEM MANAGER documented as of this encounter Care Teams Ladle Repairer Relationship Specialty Start Date End Date Keyonna Armstrong APNP [address] [place] [address] PCP - General NURSE PRACTITIONER 05/06/18 documented as of this encounter
--- OUTSIDE RECORDS SUMMARY | 2024-07-10 22:57 | XMS_ITS | Encounter Summary ---
Author Organization [facility] Address [address] [place] [address]. [place] [id number] [place] [address] Care Team Providers Care House Furnishings Supervisor Name Role Phone Keyonna Armstrong Primary Care Provider [phone] Reason for Visit * Reason Onset Date Comments Lab Results 12/25/2023 Encounter Details Date Type Department Care Team (Late st Contact Info) Description 12/25/2023 Telephone [facility] Family & Internal Medicine [facility] [address] [place] [address] Keyonna Armstrong APNP [address] [place] [address] Lab Results Social History Tobacco Use Types Packs/Day Years [...] CDT Gender Identity Female 07/17/2022 10:27 AM CERTIFIED PESTICIDE APPLICATOR Sexual Orientation Straight 07/17/2022 10 :27 AM CERTIFIED PESTICIDE APPLICATOR documented as of this encounter Progress Notes * Claritza Velázquez MA - 01/01/2024 8:53 AM CDT Pt has been seeing hematology (Dr. Horvath) about every 3 months. Last OV there was 07/26/23-office visit is in chart. She is due to return for f/u there 4-6 months. Pt v/u of lab results. She agrees to try harder to watch her diet and increase exercise. * Claritza Velázquez MA - 12/31/2023 2:57 PM CDT Attempted to call pt, went to but mailbox is full and unable to leave message. Then called pt's and lmom that we are really needing Veronica to call our office regarding herlab results, or she can check her MyChart for detailed message. * Claritza Velázquez MA - 12/25/2023 4:20 PM CDT ----- Message from YOBANI Cruz sent at 12/13/2023 6:06 PM CDT ----- Triglycerides remain elevated. I need for her to decrease processed foods, fried foods, sweets and carbohydrates in diet. Exercise and weight loss would also help this. Abnormalities noted in CBC. I did refer her to hematology last year, did she ever go? Metabolic panel was okay. The other labs that I teofilo to further evaluate her tachycardia also returned normal. documented in this encounter Plan of Treatment Upcoming Encounters Date Type Department Care Team (Late st Contact Info) Description 07/25/2024 10:00 AM CERTIFIED PESTICIDE APPLICATOR Office Visit [facility] Family & Internal Medicine [address] [phone] Keyonna Armstrong APNP [address] [place] [address] 07/31/2024 10:15 AM CERTIFIED PESTICIDE APPLICATOR Office Visit [facility] [place] [address] [place], [place] [phone] Pepe Mitchell MD Three [facility]. [facility] [address] [place] [address] documented as of this encounter Visit Diagnoses Not on filedocumented in this encounter Additional Health Concerns Assessment Noted Time PHQ-9 Depression Total Score: 22 020 3:46 PM CERTIFIED PESTICIDE APPLICATOR documented as of this encounter Care Teams House Furnishings Supervisor Relationship Specialty Start Date End Date Keyonna Armstrong APNP [address] [place] [address] PCP - General NURSE PRACTITIONER 05/06/18 documented as of this encounter
--- OUTSIDE RECORDS SUMMARY | 2024-07-10 22:57 | XMS_ITS | Encounter Summary ---
Author Organization [facility] Address [address] [place] [address]. [place], [place] [address] [place] [address] Care Team Providers Care Forming And Assembling Supervisor Name Role Phone Keyonna Armstrong Primary Care Provider [phone] Reason for Visit * Reason Onset Date Comments Appointment Request 03/21/2024 Encounter Details Date Type Department Care Team (Late st Contact Info) Description 03/21/2024 [place] [address] Susi Parikh, RMA Appointment Request Social History Tobacco Use Types Packs/Day Years [...] CDT Gender Identity Female 07/17/2022 10:27 AM MIXING MACHINE ATTENDANT Sexual Orientation Straight 07/17/2022 10 :27 AM MIXING MACHINE ATTENDANT documented as of this encounter Progress Notes * TINO Knowles - 03/21/2024 1:44 PM CDT Returned call and left message to schedule consult. (No contact ltr was sent to ordering on 12.18.23) documented in this encounter Plan of Treatment Upcoming Encounters Date Type Department Care Team (Late st Contact Info) Description 07/25/2024 10:00 AM MIXING MACHINE ATTENDANT Office Visit [facility] Family & Internal Medicine - [place] [address] [place] [address] Keyonna Armstrong APNP [address] [place] [address] 07/31/2024 10:15 AM MIXING MACHINE ATTENDANT Office Visit [facility], [facility] [address] [place] [address] Pepe Mitchell MD Three [facility]. [facility] [address] [place] [address] documented as of this encounter Visit Diagnoses Not on filedocumented in this encounter Additional Health Concerns Assessment Noted Time PHQ-9 Depression Total Score: 22 020 3:46 PM MIXING MACHINE ATTENDANT documented as of this encounter Care Teams Forming And Assembling Supervisor Relationship Specialty Start Date End Date Keyonna Armstrong APNP [address] [place] [address] PCP - General NURSE PRACTITIONER 05/06/18 documented as of this encounter
--- OUTSIDE RECORDS SUMMARY | 2024-07-10 22:57 | XMS_ITS | Encounter Summary ---
Author Organization [facility] Address [address] [place] [address]. [place], [place] [address] [place] [address] Care Team Providers Care Gum Machine Operator Name Role Phone Keyonna Armstrong Primary Care Provider [phone] Encounter Details Date Type Department Care Team (Latest Contact Info) Description 02/19/2024 Scan HEALTH INFO SRVCS Scanned, Doc Med [...] CDT Gender Identity Female 07/17/2022 10:27 AM RESEARCH MICROBIOLOGIST Sexual Orientation Straight 07/17/2022 10 :27 AM RESEARCH MICROBIOLOGIST documented as of this encounter Plan of Treatment Upcoming Encounters Date Type Department Care Team ( Contact Info) Description 07/25/2024 10:00 AM RESEARCH MICROBIOLOGIST Office Visit [facility] Family & Internal Medicine [address] [address] Keyonna Armstrong APNP [address] [place] [address] 07/31/2024 10:15 AM RESEARCH MICROBIOLOGIST Office Visit [facility] THREE [facility], [facility] [address] [place], [place] [address] Pepe Mitchell MD Three [facility]. [facility] [address] [place] [address] documented as of this encounter Visit Diagnoses Not on filedocumented in this encounter Additional Health Concerns Assessment Noted Time PHQ-9 Depression Total Score: 22 020 3:46 PM RESEARCH MICROBIOLOGIST documented as of this encounter Care Teams Gum Machine Operator Relationship Specialty Start Date End Date Keyonna Armstrong APNP [address] [place] [address] PCP - General NURSE PRACTITIONER 05/06/18 documented as of this encounter
--- OUTSIDE RECORDS SUMMARY | 2024-07-10 22:57 | XMS_ITS | Encounter Summary ---
Author Organization [facility] Address [address] [place] [address]. [place], [place] [address] [place] [address] Care Team Providers Care Can Feeder Name Role Phone Keyonna Armstrong Primary Care Provider [phone] Encounter Details Date Type Department Care Team (Latest Contact Info) Description 11/23/2023 Travel Social History Tobacco Use Types Packs/Day [...] CDT Gender Identity Female 07/17/2022 10:27 AM GOLF CART REPAIRER Sexual Orientation Straight 07/17/2022 10 :27 AM GOLF CART REPAIRER documented as of this encounter Plan of Treatment Upcoming Encounters Date Type Department Care Team (Late st Contact Info) Description 07/25/2024 10:00 AM GOLF CART REPAIRER Office Visit [facility] Family & Internal Medicine [address] [address] Keyonna Armstrong APNP [address] [place] [address] 07/31/2024 10:15 AM GOLF CART REPAIRER Office Visit [facility] THREE [facility], [facility] [address] [place], [place] [address] Pepe Mitchell MD Three [facility]. [facility] [address] [place], [place] [address] documented as of this encounter Visit Diagnoses Not on filedocumented in this encounter Additional Health Concerns Assessment Noted Time PHQ-9 Depression Total Score: 22 020 3:46 PM GOLF CART REPAIRER documented as of this encounter Care Teams Can Feeder Relationship Specialty Start Date End Date Keyonna Armstrong APNP [address] [place] [address] PCP - General NURSE PRACTITIONER 05/06/18 documented as of this encounter
--- OUTSIDE RECORDS SUMMARY | 2024-07-10 22:57 | XMS_ITS | Encounter Summary ---
Author Organization [facility] Address [address] [place] [address]. [place], [place] [address] [place] [address] Care Team Providers Care Biological Technician Name Role Phone Keyonna Armstrong Primary Care Provider [phone] Encounter Details Date Type Department Care Team (Late Contact Info) Description 02/26/2024 Orders Only [facility] Family & Internal Medicine [address] [address] Aries Marshall E, RTR Social History Tobacco Use Types Packs/Day Years [...] CDT Gender Identity Female 07/17/2022 10:27 AM CARBON ROD INSERTER Sexual Orientation Straight 07/17/2022 10 :27 AM CARBON ROD INSERTER documented as of this encounter Plan of Treatment Upcoming Encounters Date Type Department Care Team (Late st Contact Info) Description 07/25/2024 10:00 AM CARBON ROD INSERTER Office Visit [facility] Family & Internal Medicine - [place] [address] [place] [address] Keyonna Armstrong APNP [address] [place] [address] 07/31/2024 10:15 AM CARBON ROD INSERTER Office Visit [facility], [facility] [address] [place] [address] Pepe Mitchell MD Three [facility]. [facility] [address] [place], [place] [address] documented as of this encounter Visit Diagnoses Diagnosis Gastroesophageal reflux disease Esophageal reflux documented in this encounter Additional Health Concerns Assessment Noted Time PHQ-9 Depression Total Score: 22 020 3:46 PM CARBON ROD INSERTER documented as of this encounter Care Teams Biological Technician Relationship Specialty Start Date End Date Keyonna Armstrong APNP [address] [place] [address] PCP - General NURSE PRACTITIONER 05/06/18 documented as of this encounter
--- OUTSIDE RECORDS SUMMARY | 2024-07-10 22:57 | XMS_ITS | Encounter Summary ---
Author Organization [facility] Address [address] [place] [address]. [place] [id number] [place] [address] Care Team Providers Care Passenger Service Manager Name Role Phone Keyonna Armstrong Primary Care Provider [phone] Reason for Visit * Reason Onset Date Comments Results 01/15/2024 Encounter Details Date Type Department Care Team (Late st Contact Info) Description 01/15/2024 Telephone [facility] Family & Internal Medicine [facility] [address] [place] [address] Keyonna Armstrong APNP [address] [place] [address] Results Social History Tobacco Use Types Packs/Day [...] CDT Gender Identity Female 07/17/2022 10:27 AM CARDIOVASCULAR SONOGRAPHER Sexual Orientation Straight 07/17/2022 10 :27 AM CARDIOVASCULAR SONOGRAPHER documented as of this encounter Progress Notes * Flora Blackwell MA - 01/15/2024 2:09 PM CDT Patient made a follow in in a 40 min slot. Requesting pending medications to be sent to [facility]. Ok to fill? * Flora Blackwell MA - 01/15/2024 2:06 PM CDT ----- Message from Keyonna Armstrong sent at 01/15/2024 10:42 AM CDT ----- Have pt to follow up to discuss results Please make a 40 documented in this encounter Plan of Treatment Upcoming Encounters Date Type Department Care Team (Late st Contact Info) Description 07/25/2024 10:00 AM CARDIOVASCULAR SONOGRAPHER Office Visit [facility] Family & Internal Medicine - [place] [address] [place] [address] Keyonna Armstrong APNP [facility] [place] [address] 07/31/2024 10:15 AM CARDIOVASCULAR SONOGRAPHER Office Visit [facility] THREE [facility], [facility] [address] [place], [place] [address] Pepe Mitchell MD [facility]. [facility] [address] [place], [place] [address] documented as of this encounter Visit Diagnoses Diagnosis Essential hypertension Unspecified essential hypertension Pulled muscle Unspecified site of sprain and strain documented in this encounter Additional Health Concerns Assessment Noted Time PHQ-9 Depression Total Score: 22 020 3:46 PM CARDIOVASCULAR SONOGRAPHER documented as of this encounter Care Teams Passenger Service Manager Relationship Specialty Start Date End Date eKyonna Armstrong APNP [facility]1 [place] [address] PCP - General NURSE PRACTITIONER 05/06/18 documented as of this encounter
--- OUTSIDE RECORDS SUMMARY | 2024-07-10 22:57 | XMS_ITS | Encounter Summary ---
Author Organization [facility] Address [address] [place] [address]. [place] [id number] [place] [address] Care Team Providers Care Associate Java Developer Name Role Phone Keyonna Armstrong Primary Care Provider [phone] Reason for Visit * Reason Onset Date Comments Orders 11/07/2023 Encounter Details Date Type Department Care Team (Late st Contact Info) Description 11/07/2023 Telephone [facility] Family & Internal Medicine [facility] [address] [place] [phone] Keyonna Armstrong APNP [address] [place], [place] [phone] Orders Social History Tobacco Use Types Packs/Day Years [...] CDT Gender Identity Female 07/17/2022 10:27 AM COACH MECHANIC Sexual Orientation Straight 07/17/2022 10 :27 AM COACH MECHANIC documented as of this encounter Progress Notes * Aguilar Garcia MA - 11/07/2023 1:56 PM CDT Ordered and faxed. Called pt's and LMOM letting him know. Paper orders at front desk team member also if pt wants to pick pulling machine operator to take with her. * Aguilar Garcia MA - 11/07/2023 1:51 PM CDTAddended by: AGUILAR GARCIA on: 11/07/2023 01:51 PM Modules accepted: Orders * YOBANI [place] - 11/07/2023 12:29 PM CDT Cbc, cmp, lipid, tsh/reflex, UA * Adri Oviedo - 11/07/2023 12:10 PM CDT Pts states wanting to get lab work done 11/08/[address] * Adri Oviedo - 11/07/2023 12:08 PM CDT Pts asking for lab orders to [facility] [place] documented in this encounter Plan of Treatment Upcoming Encounters Date Type Department Care Team (Late st Contact Info) Description 07/25/2024 10:00 AM COACH MECHANIC Office Visit [facility] Family & Internal Medicine [address] [address] Keyonna Armstrong APNP [address] [place] [address] 07/31/2024 10:15 AM COACH MECHANIC Office Visit [facility], [place] [address] [place], [place] [address] Pepe Mitchell MD Three [facility]. [place] [address] [place], [place] [address] Scheduled Orders Name Type Priority Associated Diagnoses Orde r Schedule CBC W/DIFF AUTOMATED Lab Routine Primary hypertension Abnormal CBC Other fatigue Expected: 11/07/2023 (Approximate), Expires: 11/06/2024 COMPREHENSIVE METABOLIC PANEL Lab Routine Primary hypertension Other fatigue Expected: 11/07/2023 (Approximate), Expires: 11/06/2024 TSH W/REFLEX Lab Routine Other fatigue Expected: 11/07/2023 (Approximate), Expires: 11/06/2024 LIPID PANEL Lab Routine Dyslipidemia Expected: 11/07/2023 (Approximate), Expires: 11/06/2024 URINALYSIS WI REFLEX TO CULTURE Lab Routine Primary hypertension Abnormal CBC Expected: 11/07/2023 (Approximate), Expires: 11/06/2024 documented as of this encounter Visit Diagnoses Diagnosis Primary hypertension- Primary Unspecified essential hypertension Abnormal CBC Other abnormal blood chemistry Dyslipidemia Other and unspecified hyperlipidemia Adenoma of left adrenal gland Benign neoplasm of adrenal gland Other fatigue documented in this encounter Additional Health Concerns Assessment Noted Time PHQ-9 Depression Total Score: 22 020 3:46 PM COACH MECHANIC documented as of this encounter Care Teams Associate Java Developer Relationship Specialty Start Date End Date Keyonna Armstrong APNP [address] [place] [address] PCP - General NURSE PRACTITIONER 05/06/18 documented as of this encounter
--- OUTSIDE RECORDS SUMMARY | 2024-07-10 22:57 | XMS_ITS | Encounter Summary ---
Author Organization [facility] Address [address] [place] [address]. [place], [place] [address] [place] [address] Care Team Providers Care Pocket And Pulley Machine Operator Name Role Phone Keyonna Armstrong Primary Care Provider [phone] Reason for Visit * Reason Onset Date Comments Consult 03/28/2024 Encounter Details Date Type Department Care Team (Late st Contact Info) Description 03/28/2024 [place] [address] Susi Parikh, RMA Consult Social History Tobacco [...] CDT Gender Identity Female 07/17/2022 10:27 AM CHECK AIRMAN Sexual Orientation Straight 07/17/2022 10 :27 AM CHECK AIRMAN documented as of this encounter Progress Notes * TINO Knowles - 03/28/2024 2:32 PM CDT Left message to schedule cardiology consult per Keyonna Armstrong NP documented in this encounter Plan of Treatment Upcoming Encounters Date Type Department Care Team (Late st Contact Info) Description 07/25/2024 10:00 AM CHECK AIRMAN Office Visit [facility] Family & Internal Medicine - [place] [address] [place] [address] Keyonna Armstrong APNP [address] [place] [address] 07/31/2024 10:15 AM CHECK AIRMAN Office Visit [facility] THREE [facility], [facility] [address] [place] [address] Pepe Mitchell MD Three [facility]. [facility] [address] [place] [address] documented as of this encounter Visit Diagnoses Not on filedocumented in this encounter Additional Health Concerns Assessment Noted Time PHQ-9 Depression Total Score: 22 020 3:46 PM CHECK AIRMAN documented as of this encounter Care Teams Pocket And Pulley Machine Operator Relationship Specialty Start Date End Date Keyonna Armstrong APNP [facility]1 [place] [address] PCP - General NURSE PRACTITIONER 05/06/18 documented as of this encounter
--- OUTSIDE RECORDS SUMMARY | 2024-07-10 22:57 | XMS_ITS | Encounter Summary ---
Author Organization [facility] Address [address] [place] [address]. [place] [id number] Care Team Providers Care Snack Foods Mixer Operator Name Role Phone Keyonna Armstrong Primary Care Provider [phone] Reason for Visit * Reason Comments Sleep Apnea Needs Feedback/Test Results Encounter Details Date Type Department Care Team (Late st Contact Info) Description 02/27/2024 8:40 AM CDT Office Visit [facility] Family & Internal Medicine [facility] [address] [place] [address] Keyonna Armstrong APNP [address], [place] [id number] Sleep Apnea; Needs Feedback/Test Results Social History Tobacco Use Types Packs/Day [...] CDT Gender Identity Female 07/17/2022 10:27 AM MEDICAL STAFF ASSISTANT Sexual Orientation Straight 07/17/2022 10 :27 AM MEDICAL STAFF ASSISTANT documented as of this encounter Last Filed Vital Signs Vital Sign Reading Time Taken Comments Blood Pressure 106/76 02/27/2024 8:55 AM CDT Pulse 112 02/27/2024 8:55 AM CDT Temperature 35.8 ??C (96.4 ??F) 02/27/2024 8:55 AM CD T Respiratory Rate 16 02/27/2024 8:55 AM CDT Oxygen Saturation 97% 02/27/2024 8:55 AM CDT Inhaled Oxygen Concentration - - Weight 112 kg (247 lb) 02/27/2024 8:55 AM CDT Height 162.6 cm (5' 4) 02/27/2024 8:55 AM CDT Body Mass Index 42.4 02/27/2024 8:55 AM CDT documented in this encounter Progress Notes * YOBANI Cruz - 02/27/2024 8:40 AM CDT Images from the original note were not included. [facility] VISIT Reason for Visit: Sleep Apnea and Needs Feedback/Test Results History of Present Illness: 53 yo female here today for review of her home sleep study. Results reviewed and reads as follows: WATCHPAT HOME SLEEP APNEA TEST REPORT SUMMARY DATA SLEEP STUDY/ARCHITECTURE: This patient was studied using a WatchPAT home sleep study device, The evaluation was initiated on 01/04/2024 at 8:31:24 PM and was stopped at 6:36:14 AM. The total recording time was 10 hrs, 4 min with total sleep evaluation of 8 hrs, 31 min. ANALYSIS: (pAHI = PAT ApneaHypopnea Index, pRDI = PAT Respiratory Disturbance Index) Total pAHI 4%: 7.8 Total pRDI: 9.8 Average Sleep Oxygen Saturation: 92 Minimum Sleep Oxygen Saturation: 85 Mean Heart Rate During Sleep: 100 Afib Total Duration: Not detected Afib Longest Duration: Not detected (Afib events < 60 seconds may be artifact) SUMMARY/DIAGNOSIS 1.) Mild Obstructive Sleep Apnea. 2.) Tachycardia was noted during this study. RECOMMENDATIONS [place] treatment option should be discussed with the patient and a plan for treatment should be made. Potential health consequences and medical importance of treatment should also be discussed with the patient.. Tachycardia was noted during this study. Given that the patient's past medical history was not available during interpretation of this study, clinical correlation of this issue may be indicated based upon this patient's underlying medical conditions. This patient should maintain good sleep hygiene techniques, maintain a consistent sleep/wake schedule with adequate hours of sleep, and avoid hazardous activities when sleepy. The patient should be cautioned about factors that may potentially exacerbate snoring and other sleeprelated issues, such as ROLLER HELPER depressants, especially at bedtime Ample time given for questions/answers. Agreeable to start CPAP which can be ordered today. She has lost 14 lbs since her last visit with me. She is obese still with a BMI of 42.40. She is onMounjaro currently which she is tolerating well, prescribed per another provider. She remains tachycardic---however much improved from 3 months ago. I did refer her to both cardiology and endocrinology (for hx of adrenal mass). She has previously seen endo, however lost to follow up. Catecholamines and metanephrines with 12/13 labs were both negative. She is on metoprolol 100 mg B ID. BP is controlled. She is also requesting several refills as well today HTN - BP well controlled, harish meds well. Insomnia - due for remeron refill, takes remeron and zolpidem, feels symptoms controlled and harish meds well. GERD - takes pantoprazole, harish well, symptoms controlled. Dep/anxiety - has previously seen psych---but currently in between psych providers---due for some refills. Feels symptoms controlled and is due for refills. Denies any HI/SI. Low back pain/muscle spasm - takes methocarbamol PRN, not taking every day--will be due for refill later this month. Also sees ortho spine for injections---feels symptoms improving. Has had prediabetes and PCOS for several years and has been on metformin in the past--harish well, symptoms and A1C controlled. ROS: Review of Systems Constitutional: Negative for chills and fever. Respiratory: Negative for cough and shortness of breath. Cardiovascular: Negative for chest pain and palpitations. Gastrointestinal: Negative for abdominal pain and vomiting. Genitourinary: Negative for dysuria and urgency. Neurological: Negative for dizziness and headaches. Psychiatric/Behavioral: Negative for depression. The patient is not nervous/anxious. Medications: Current Outpatient Medications: amLODIPine (NORVASC) 5 MG tablet, Take 1 tablet (5 mg total) by mouth daily., Disp: 90 tablet, Rfl:1 buPROPion SR (ZYBAN) 150 MG 12 hr tablet, Take 1 tablet (150 mg total) by mouth 2 (two) times daily., Disp: 180 tablet, Rfl: 1 Cranberry-Vitamin C-Probiotic (AZO CRANBERRY) 250-30 MG Tab, , Disp: , Rfl: dimenhyDRINATE (DRAMAMINE) 50 MG Tab tablet, Take 1 tablet (50 mg total) by mouth every 4 (four) hours as needed for Nausea., Disp: , Rfl: diphenhydrAMINE-APAP (TYLENOL PM) 25-500 MG Tab tablet, Take 1 tablet by mouth nightly at bedtime.,Disp: , Rfl: estradiol (VIVELLE-DOT) 0.05 MG/24HR patch, APPLY 1 PATCH TRANSDERMALLY TWICE A WEEK, Disp: , Rfl: gabapentin (NEURONTIN) 100 MG capsule, Take 1 capsule (100 mg total) by mouth 3 (three) times daily., Disp: , Rfl: hydroCHLOROthiazide (HYDRODIURIL) 25 MG tablet, TAKE 1 TABLET BY MOUTH EVERY DAY Patient must be seen for further refills, Disp: 30 tablet, Rfl: 3 hydrOXYzine (ATARAX) 25 MG tablet, Take 1 tablet (25 mg total) by mouth 2 (two) times daily as needed., Disp: , Rfl: ibuprofen (MOTRIN) 800 MG tablet, Take 1 tablet by mouth three times daily as needed, Disp: 60 tablet, Rfl: 0 lisinopril (PRINIVIL) 40 MG tablet, Take 1 tablet (40 mg total) by mouth daily., Disp: 90 tablet, Rfl: 1 LORazepam (ATIVAN) 1 MG tablet, Take 1 tablet (1 mg total) by mouth every 8 (eight) hours as neededfor Anxiety (regularly takes 3 tabs daily)., Disp: 60 tablet, Rfl: 0 Magnesium 400 MG Cap, Take 1 capsule by mouth 2 (two) times a day., Disp: , Rfl: metFORMIN (GLUCOPHAGE) 500 MG tablet, TAKE 1 TABLET BY MOUTH EVERY MORNING AND 2 TABLETS AT BEDTIME, Disp: 270 tablet, Rfl: 1 methocarbamol (ROBAXIN) 750 MG Tab, Take 1 tablet (750 mg total) by mouth 3 (three) times daily as needed., Disp: 180 tablet, Rfl: 0 metoprolol tartrate (LOPRESSOR) 100 MG tablet, Take 1 tablet (100 mg total) by mouth 2 (two) times daily., Disp: 60 tablet, Rfl: 5 mirtazapine (REMERON) 15 MG tablet, Take 1 tablet (15 mg total) by mouth nightly at bedtime., Disp:90 tablet, Rfl: 1 MOUNJARO 12.5 MG/0.5ML injection, INJECT 12.5 MG UNDER THE SKIN EVERY 7 DAYS, Disp: , Rfl: Multiple Vitamin (MULTI-VITAMIN) tablet, Take 1 tablet by mouth daily., Disp: , Rfl: pantoprazole EC (PROTONIX) 20 MG tablet, Take 1 tablet (20 mg total) by mouth daily., Disp: 90 tablet, Rfl: 1 progesterone (PROMETRIUM) 200 MG capsule, TAKE 1 CAPSULE BY MOUTH EVERY DAY IN THE EVENING, Disp: ,Rfl: venlafaxine XR (EFFEXOR-XR) 75 MG 24 hr capsule, TAKE 1 CAPSULE BY MOUTH EVERY MORNING AND 2 CAPSULES EVERY EVENING, Disp: 270 capsule, Rfl: 1 vitamin D3 (CHOLECALCIFEROL) 25 mcg tablet, Take 1 tablet (25 mcg total) by mouth daily., Disp: , Rfl: zolpidem (AMBIEN) 10 MG tablet, TAKE 1 TABLET BY MOUTH AT BEDTIME NEEDED ONCE DAILY FOR 30 DAYS,Disp: , Rfl: Allergies: Review of patient's allergies indicates: Allergen Reactions Trazodone Hallucinations Medical History: Past Medical History: Diagnosis Date Adrenal adenoma 10/11/2017 Anxiety 09/20/2017 Cholecystitis 06/11/2018 Depression 06/19/2012 Diabetes mellitus ([facility]) Esophageal reflux 04/22/2013 Hypertension 06/19/2012 Insomnia 04/02/2018 Menorrhagia 04/02/2018 Morbid obesity ([facility]) 09/23/2013 Obstructive sleep apnea 08/02/2012 Sinus tachycardia 09/20/2017 Surgical History: Past Surgical History: Procedure Laterality Date CHOLECYSTECTOMY COLONOSCOPY N/A 01/12/2020 COLONOSCOPY SCREENING performed by Burt Payne MD at [facility] GASTRIC BYPASS N/A 2004 Social History: Social History Socioeconomic History Marital status: Tobacco Use Smoking status: Never Smokeless tobacco: Never Vaping Use Vaping status: Never Used Substance and Sexual Activity Alcohol use: No Drug use: No Sexual activity: Not Currently Partners: Male control/protection: Abstinence, Post-menopausal Social Determinants of Health Intimate Partner Violence: Unknown (01/06/2020) Humiliation, Afraid, Rape, and Kick questionnaire Fear of Current or Ex-Partner: Patient declined Emotionally Abused: Patient declined Physically Abused: Patient declined Sexually Abused: Patient declined Family History: Family History Problem Relation Name Age of Onset Liver Disease Mother Jean Carlos albert mother Hypertension Mother Jean Carlos albert mother Alcohol Abuse Mother Jean Carlos albert mother Most of family Depression Mother Jean Carlos albert mother Diabetes Father Duglas Albert None Father Duglas Albert Thyroid Sister Vidya juan miguel sister Depression Sister Vidya juan miguel sister Liver Disease Brother Rehan albert nephew Alcohol Abuse Brother Rehan albert nephew Alcohol Depression Brother Rehan albert nephew Stroke Maternal Grandmother Monica stanton Alcohol Abuse Brother Salbador albert Alcohol PE: Physical Exam Vitals and nursing note reviewed. HENT: Head: Normocephalic and atraumatic. Eyes: General: No scleral icterus. Conjunctiva/sclera: Conjunctivae normal. Neck: Trachea: No tracheal deviation. Cardiovascular: Rate and Rhythm: Normal rate and regular rhythm. Heart sounds: Normal heart sounds. No murmur heard. Pulmonary: Effort: Pulmonary effort is normal. No respiratory distress. Breath sounds: Normal breath sounds. No stridor. No wheezing. Musculoskeletal: General: No deformity. Normal range of motion. Cervical back: Normal range of motion and neck supple. Skin: General: Skin is warm and dry. Findings: No erythema. Neurological: Mental Status: She is alert and oriented to person, place, and time. Gait: Gait is intact. Psychiatric: Mood and Affect: Mood and affect normal. Filed Vitals: 02/27/24 0855 BP: 106/76 Pulse: (!) 112 Resp: 16 Temp: 96.4 ??F (35.8 ??C) TempSrc: Skin SpO2: 97% Weight: 112 kg (247 lb) Height: 1.626 m (5' 4) Labs: Labs Reviewed Diagnoses/Impression: 1. Obstructive sleep apnea Chronic 2. Primary hypertension amLODIPine (NORVASC) 5 MG tablet 3. Essential hypertension lisinopril (PRINIVIL) 40 MG tablet 4. Prediabetes metFORMIN (GLUCOPHAGE) 500 MG tablet 5. Pulled muscle methocarbamol (ROBAXIN) 750 MG Tab DISCONTINUED: methocarbamol (ROBAXIN) 750 MG Tab 6. Primary insomnia Chronic mirtazapine (REMERON) 15 MG tablet 7. Gastroesophageal reflux disease without esophagitis pantoprazole EC (PROTONIX) 20 MG tablet 8. Depression, unspecified depression type venlafaxine XR (EFFEXOR-XR) 75 MG 24 hr capsule 9. Recurrent major depressive disorder, in partial remission ([facility]) Chronic buPROPion SR (ZYBAN)150 MG 12 hr tablet 10. Morbid (severe) obesity due to excess calories ([facility]) Recommendations and Plan: 1. Primary hypertension - amLODIPine (NORVASC) 5 MG tablet; Take 1 tablet (5 mg total) by mouth daily. Dispense: 90 tablet;Refill: 1 Stable. Cont meds 2. Essential hypertension - lisinopril (PRINIVIL) 40 MG tablet; Take 1 tablet (40 mg total) by mouth daily. Dispense: 90 tablet; Refill: 1 Stable. Cont meds 3. Prediabetes - metFORMIN (GLUCOPHAGE) 500 MG tablet; TAKE 1 TABLET BY MOUTH EVERY MORNING AND 2 TABLETS AT BEDTIME Dispense: 270 tablet; Refill: 1 Stable. Cont meds 4. Pulled muscle - methocarbamol (ROBAXIN) 750 MG Tab; Take 1 tablet (750 mg total) by mouth 3 (three) times daily as needed. Dispense: 180 tablet; Refill: 0 5. Primary insomnia - mirtazapine (REMERON) 15 MG tablet; Take 1 tablet (15 mg total) by mouth nightly at bedtime. Dispense: 90 tablet; Refill: 1 Stable. Cont meds 6. Gastroesophageal reflux disease without esophagitis - pantoprazole EC (PROTONIX) 20 MG tablet; Take 1 tablet (20 mg total) by mouth daily. Dispense: 90tablet; Refill: 1 Stable. Cont meds 7. Depression, unspecified depression type - venlafaxine XR (EFFEXOR-XR) 75 MG 24 hr capsule; TAKE 1 CAPSULE BY MOUTH EVERY MORNING AND 2 CAPSULES EVERY EVENING Dispense: 270 capsule; Refill: 1 Stable. Cont meds and follow up with psych 8. Recurrent major depressive disorder, in partial remission (CMS/HCC) - buPROPion SR (ZYBAN) 150 MG 12 hr tablet; Take 1 tablet (150 mg total) by mouth 2 (two) times daily. Dispense: 180 tablet; Refill: 1 9. Obstructive sleep apnea Sleep study reviewed, CPAP to be ordered Follow up one month after starting CPAP 10. Morbid (severe) obesity due to excess calories (CMS/HCC HHS/HCC) TLC's and dietary changes conducive to weight loss discussed today Continue with Marques I discussed with pt again on importance of following up with referrals as placed 3 months ago. Willprovide pt with info today I personally spent a total of 40 minutes on the day of the encounter. This includes eudx-nx-slwn and esb-blgn-yd-face time I provided on the day of the encounter & excludes time spent performing separately reportable services. Orders Placed This Encounter hydrOXYzine (ATARAX) 25 MG tablet MOUNJARO 12.5 MG/0.5ML injection zolpidem (AMBIEN) 10 MG tablet amLODIPine (NORVASC) 5 MG tablet lisinopril (PRINIVIL) 40 MG tablet metFORMIN (GLUCOPHAGE) 500 MG tablet DISCONTD: methocarbamol (ROBAXIN) 750 MG Tab mirtazapine (REMERON) 15 MG tablet pantoprazole EC (PROTONIX) 20 MG tablet venlafaxine XR (EFFEXOR-XR) 75 MG 24 hr capsule buPROPion SR (ZYBAN) 150 MG 12 hr tablet methocarbamol (ROBAXIN) 750 MG Tab Cannot display discharge medications since this is not an admission. PCP: YOBANI Cruz 02/27/2024 documented in this encounter Plan of Treatment Upcoming Encounters Date Type Department Care Team (Late st Contact Info) Description 07/25/2024 10:00 AM MEDICAL STAFF ASSISTANT Office Visit [facility] Family & Internal Medicine - [address] [address] Keyonna Armstrong APNP [address] [place] [address] 07/31/2024 10:15 AM MEDICAL STAFF ASSISTANT Office Visit [facility] [place] [address] [place] [address] Pepe Mitchell MD Three [facility]. [place] [address] [place] [address] documented as of this encounter Visit Diagnoses Diagnosis Obstructive sleep apnea- Primary Obstructive sleep apnea (adult) (pediatric) Primary hypertension Unspecified essential hypertension Essential hypertension Unspecified essential hypertension Prediabetes Other abnormal glucose Pulled muscle Unspecified site of sprain and strain Primary insomnia Persistent disorder of initiating or maintaining sleep Gastroesophageal reflux disease without esophagitis Esophageal reflux Depression, unspecified depression type Recurrent major depressive disorder, in partial remission ([facility]) Morbid (severe) obesity due to excess calories ([facility]HCC) documented in this encounter Additional Health Concerns Assessment Noted Time PHQ-9 Depression Total Score: 22 020 3:46 PM MEDICAL STAFF ASSISTANT documented as of this encounter Care Teams Snack Foods Mixer Operator Relationship Specialty Start Date End Date Keyonna Armstrong APNP [facility] [place] [address] PCP - General NURSE PRACTITIONER 05/06/18 documented as of this encounter
--- OUTSIDE RECORDS SUMMARY | 2024-07-10 22:57 | XMS_ITS | Encounter Summary ---
Author Organization [facility] Address [address] [place] [address]. [place] [id number] [place] [address] Care Team Providers Care Radio Frequency Engineer Name Role Phone Keyonna Armstrong Primary Care Provider [phone] Reason for Visit * Reason Onset Date Comments Orders 10/17/2023 Encounter Details Date Type Department Care Team (Late st Contact Info) Description 10/17/2023 Telephone [facility] Family & Internal Medicine [facility] [address] [place] [phone] Keyonna Armstrong APNP [address], [place] [phone] Orders Social History Tobacco Use Types Packs/Day [...] CDT Gender Identity Female 07/17/2022 10:27 AM 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 Opportunity given for all questions to be answered, no further needs voiced at this time. -10/31/23 * Soo Choi RN - 10/29/2023 2:33 PM CDT Attempted to call the patient, was unable to reach them at this time. Left a message requesting a call back. -10/29/23 * Soo Choi RN - 10/25/2023 1:20 PM CDT Attempted to call the patient and her spouse, was unable to reach them at this time. Left a messagerequesting a call back. -10/25/23 * Claritza Velázquez MA - 10/25/2023 12:01 PM CDT LMOM to please call back. I recommended pt call [facility] and ask what exactly is ready for her to pickle solution maker as it may just be a medication. I * Susi Connell - 10/25/2023 10:46 AM CDT Has been getting calls for [facility] to [facility] something for a study as well as a place in [place] or [place] about the sleep study. She is confused as to who to call. * Claritza Velázquez MA - 10/23/2023 9:27 AM CDT LMOM to call back if still having questions regarding sleep study. Also informed sending [employer] message as well, if choosing to reply to that message. * Adri Oviedo - 10/17/2023 12:30 PM CDT Pt called back no one available stated okay to call back. Pt has questions about sleep study. * Flora Blackwell MA - 10/17/2023 10:20 AM CDT Received a call from [facility] sleep lab that patient was confused on the process of receiving the home sleep study and she thought that she picked this up from [facility]? LM 10/17/23 Need to inform patient that she would pick this up from [facility]. She will need a smart phone for the testing and the test is disposable and not need to be returned as long as she has a smart phone. tn documented in this encounter Plan of Treatment Upcoming Encounters Date Type Department Care Team (Late st Contact Info) Description 07/25/2024 10:00 AM GRAVEL TRUCK DRIVER Office Visit [facility] Family & Internal Medicine - [place] [address] [place] [address] Keyonna Armstrong APNP [address] [place] [address] 07/31/2024 10:15 AM GRAVEL TRUCK DRIVER Office Visit [facility] [address] [place] [address] Pepe Mitchell MD Three [facility]. [place] [address] [place] [address] documented as of this encounter Visit Diagnoses Not on filedocumented in this encounter Additional Health Concerns Assessment Noted Time PHQ-9 Depression Total Score: 22 020 3:46 PM GRAVEL TRUCK DRIVER documented as of this encounter Care Teams Radio Frequency Engineer Relationship Specialty Start Date End Date Keyonna Armstrong APNP [address] [place] [id number] PCP - General NURSE PRACTITIONER 05/06/18 documented as of this encounter
--- OUTSIDE RECORDS SUMMARY | 2024-07-10 22:57 | XMS_ITS | Encounter Summary ---
Author Organization [facility] Address [address] [place] [address]. [place], [place] [id number] [place] [address] Care Team Providers Care Field Marketing Director Name Role Phone Keyonna Armstrong Primary Care Provider [phone] Encounter Details Date Type Department Care Team (Latest Contact Info) Description 11/26/2023 Scan HEALTH INFO SRVCS Scanned, Doc Med [...] CDT Gender Identity Female 07/17/2022 10:27 AM POWER HOUSE CONTROL ROOM OPERATOR Sexual Orientation Straight 07/17/2022 10 :27 AM POWER HOUSE CONTROL ROOM OPERATOR documented as of this encounter Plan of Treatment Upcoming Encounters Date Type Department Care Team ( Contact Info) Description 07/25/2024 10:00 AM POWER HOUSE CONTROL ROOM OPERATOR Office Visit [facility] Family & Internal Medicine [address] [phone] Keyonna Armstrong APNP [address] [place] [address] 07/31/2024 10:15 AM POWER HOUSE CONTROL ROOM OPERATOR Office [facility] [address] [place], [place] [phone] Pepe Mitchell MD Three [facility]. [facility] [address] [place] [address] documented as of this encounter Visit Diagnoses Not on filedocumented in this encounter Additional Health Concerns Assessment Noted Time PHQ-9 Depression Total Score: 22 020 3:46 PM POWER HOUSE CONTROL ROOM OPERATOR documented as of this encounter Care Teams Field Marketing Director Relationship Specialty Start Date End Date Keyonna Armstrong APNP [address] [place] [address] PCP - General NURSE PRACTITIONER 05/06/18 documented as of this encounter
--- OUTSIDE RECORDS SUMMARY | 2024-07-10 22:57 | XMS_ITS | Encounter Summary ---
Author Organization [facility] Address [address] [place] [address]. [place] [id number] [place] [address] Care Team Providers Care Telecommunications Field Technician Name Role Phone Keyonna Armstrong Primary Care Provider [phone] Reason for Visit * Reason Onset Date Comments Refill Request 04/24/2024 Question 04/24/2024 Encounter Details Date Type Department Care Team (Late st Contact Info) Description 04/24/2024 Telephone [facility] Medical Group Family & Internal Medicine [facility] [address] [place] [phone] Keyonna Armstrong APNP [address] [place] [address] Refill Request; Question Social History Tobacco Use Types Packs/Day Years [...] CDT Gender Identity Female 07/17/2022 10:27 AM HERBOLOGIST Sexual Orientation Straight 07/17/2022 10 :27 AM HERBOLOGIST documented as of this encounter Progress Notes * Claritza Velázquez MA - 04/29/2024 11:21 AM CDT Order faxed to [facility] today, along with OV notes and sleep study report, ID, insurance card. * YOBANI Cruz - 04/25/2024 1:15 PM CDT Yes, CPAP to be ordered * Claritza Velázquez MA - 04/24/2024 3:33 PM CDT Pt also asked about CPAP, she recalls maybe Keyonna told her she didn't really need a CPAP. Per last office note 02/27/24, it looks like a CPAP was to be ordered, though I do not see any order was sent. Too soon for refills on meds that Keyonna manages, others managed by other providers. Pt aware she needs to contact their offices for those meds, if needing refills. [place]. * Paulette Ward - 04/24/2024 2:50 PM CDT Pt is needing a refill on zolpidem 10 mg, lorazapam 1 mg, pantiorazike EC 20 mg, mirtazapine 15 mg,ibuprofen 800 mg. Gabapentin 100 mg, Pharmacy [facility] [address] [place], [place]. documented in this encounter Plan of Treatment Upcoming Encounters Date Type Department Care Team (Late st Contact Info) Description 07/25/2024 10:00 AM HERBOLOGIST Office Visit [facility] Medical Group Family & Internal Medicine - [place] [address] [place] [address] Keyonna Armstrong APNP [address] [place] [address] 07/31/2024 10:15 AM HERBOLOGIST [facility], [facility] [address] [place] [address] Pepe Mitchell MD Three [facility]. [facility] [address] [place] [address] documented as of this encounter Visit Diagnoses Diagnosis Right ovarian cyst Other and unspecified ovarian cyst Gastroesophageal reflux disease without esophagitis Esophageal reflux documented in this encounter Additional Health Concerns Assessment Noted Time PHQ-9 Depression Total Score: 22 020 3:46 PM HERBOLOGIST documented as of this encounter Care Teams Telecommunications Field Technician Relationship Specialty Start Date End Date Keyonna Armstrong APNP [address] [place] [address] PCP - General NURSE PRACTITIONER 05/06/18 documented as of this encounter
--- OUTSIDE RECORDS SUMMARY | 2024-07-10 22:57 | XMS_ITS | Encounter Summary ---
Author Organization [facility] Address [address] [place] [address]. [place], [place] [address] [place] [address] Care Team Providers Care Tobacco Shaker Name Role Phone Keyonna Armstrong Primary Care Provider [phone] Encounter Details Date Type Department Care Team (Latest Contact Info) Description 02/27/2024 Travel Social History Tobacco Use Types Packs/Day [...] CDT Gender Identity Female 07/17/2022 10:27 AM LOGGING OPERATIONS INSPECTOR Sexual Orientation Straight 07/17/2022 10 :27 AM LOGGING OPERATIONS INSPECTOR documented as of this encounter Plan of Treatment Upcoming Encounters Date Type Department Care Team (Late st Contact Info) Description 07/25/2024 10:00 AM LOGGING OPERATIONS INSPECTOR Office Visit [facility] Medical Group Family & Internal Medicine [address] [address] Keyonna Armstrong APNP [address] [place] [address] 07/31/2024 10:15 AM LOGGING OPERATIONS INSPECTOR Office Visit [facility], [facility] [address] [place], [place] [phone] Pepe Mitchell MD Three [facility]. [facility] [address] [place], [place] [id number] documented as of this encounter Visit Diagnoses Not on filedocumented in this encounter Additional Health Concerns Assessment Noted Time PHQ-9 Depression Total Score: 22 020 3:46 PM LOGGING OPERATIONS INSPECTOR documented as of this encounter Care Teams Tobacco Shaker Relationship Specialty Start Date End Date Keyonna Armstrong APNP [address] [place] [address] PCP - General NURSE PRACTITIONER 05/06/18 documented as of this encounter
--- OUTSIDE RECORDS SUMMARY | 2024-07-10 22:57 | XMS_ITS | Clinical Summary ---
Author Organization [facility] Address [address] [place] [address]. [place] [address] [place] [address] Care Team Providers Care Crochet Beader Name Role Phone Keyonna Armstrong Primary Care Provider [phone] Allergies Active Allergy Reactions Criticality Noted Date Comments Trazodone Hallucinations 08/28/2019 Medications Multiple Vitamin (MULTI-VITAMIN) tablet Take 1 tablet by mouth daily. Active LORazepam (ATIVAN) 1 MG tabletIndicatio ns:Anxiety Take 1 tablet (1 mg total) by mouth every 8 (eight) hours as needed for Anxiety (regularly takes 3 tabs daily). 60 tablet 023 Active gabapentin (NEURONTIN) 100 MG capsule Take 1 capsule (100 mg total) by mouth 3 (three) times daily. 023 Active estradiol (VIVELLE-DOT) 0.05 MG/24HR patch APPLY 1 PATCH TRANSDERMALLY TWICE A WEEK 024 Active vitamin D3 (CHOLECALCIFERO L) 25 mcg tablet Take 1 tablet (25 mcg total) by mouth daily. Active Magnesium 400 MG Cap Take 1 capsule by mouth 2 (two) times a day. Active dimenhyDRINATE (DRAMAMINE) 50 MG Tab tablet Take 1 tablet (50 mg total) by mouth every 4 (four) hours as needed for Nausea. Active diphenhydrAMINE -APAP (TYLENOL PM) 25-500 MG Tab tablet Take 1 tablet by mouth nightly at bedtime. Active Cranberry-Vitam in C-Probiotic (AZO CRANBERRY) 250-30 MG Tab Active progesterone (PROMETRIUM) 200 MG capsule TAKE 1 CAPSULE BY MOUTH EVERY DAY IN THE EVENING 02/03/2 024 Active MOUNJARO 12.5 MG/0.5ML injection INJECT 12.5 MG UNDER THE SKIN EVERY 7 DAYS Active zolpidem (AMBIEN) 10 MG tablet TAKE 1 TABLET BY MOUTH AT BEDTIME NEEDED ONCE DAILY FOR 30 DAYS Active amLODIPine (NORVASC) 5 MG tabletIndicatio ns:Primary hypertension Take 1 tablet (5 mg total) by mouth daily. 90 tablet 1 024 Active lisinopril (PRINIVIL) 40 MG tabletIndicatio ns:Essential hypertension Take 1 tablet (40 mg total) by mouth daily. 90 tablet 1 024 Active metFORMIN (GLUCOPHAGE) 500 MG tabletIndicatio ns:Prediabetes TAKE 1 TABLET BY MOUTH EVERY MORNING AND 2 TABLETS AT BEDTIME 270 tablet 1 Active mirtazapine (REMERON) 15 MG tabletIndicatio ns:Primary insomnia Take 1 tablet (15 mg total) by mouth nightly at bedtime. 90 tablet 1 Active venlafaxine XR (EFFEXOR-XR) 75 MG 24 hr capsuleIndicati ons:Depression, unspecified depression type TAKE 1 CAPSULE BY MOUTH EVERY MORNING AND 2 CAPSULES EVERY EVENING 270 capsule 1 Active buPROPion SR (ZYBAN) 150 MG 12 hr tabletIndicatio ns:Recurrent major depressive disorder, in partial remission (CMS/HCC) Take 1 tablet (150 mg total) by mouth 2 (two) times daily. 180 tablet 1 Active methocarbamol (ROBAXIN) 750 MG TabIndications: Pulled muscle Take 1 tablet (750 mg total) by mouth 3 (three) times daily as needed. 180 tablet 024 Active pantoprazole EC (PROTONIX) 20 MG tabletIndicatio ns:Gastroesopha geal reflux disease without esophagitis Take 1 tablet (20 mg total) by mouth daily. 90 tablet 024 Active hydrOXYzine (ATARAX) 25 MG tabletIndicatio ns:Gastroesopha geal reflux disease without esophagitis Take 1 tablet by mouth twice daily as needed 60 tablet 3 024 Active metoprolol tartrate (LOPRESSOR) 100 MG tabletIndicatio ns:Primary hypertension,Si nus tachycardia Take 1 tablet by mouth twice daily 180 tablet 024 Active hydroCHLOROthia zide (HYDRODIURIL) 25 MG tabletIndicatio ns:Essential hypertension Take 1 tablet (25 mg total) by mouth daily. 90 tablet 1 024 Active ibuprofen (MOTRIN) 800 MG tabletIndicatio ns:Right ovarian cyst Take 1 tablet by mouth three times daily as needed 60 tablet 3 024 Active ibuprofen (MOTRIN) 800 MG tabletIndicatio ns:Right ovarian cyst Take 1 tablet by mouth three times daily as needed 60 tablet 2 024 2023 Discontinued ibuprofen (MOTRIN) 800 MG tabletIndicatio ns:Right ovarian cyst Take 1 tablet by mouth three times daily as needed 60 tablet 024 2023 Discontinued ibuprofen (MOTRIN) 800 MG tabletIndicatio ns:Right ovarian cyst Take 1 tablet by mouth three times daily as needed 60 tablet 024 2023 Discontinued Active Problems Problem Noted Date Diagnosed Date Morbid (severe) obesity due to excess calories 0 11/23/2023 Recurrent major depressive disorder, in partial remission 12/20/2021 Leukocytosis (leucocytosis) 08/26/2019 Reactive thrombocytosis 08/26/2019 PCOS (polycystic ovarian syndrome) 06/20/2018 Cholecystitis 06/11/2018 Insomnia 04/02/2018 Menorrhagia 04/02/2018 High serum renin 10/25/2017 Adrenal adenoma 10/11/2017 Long-term use of high-risk medication 09/27/2017 Shortness of breath at rest 09/27/2017 Anxiety 09/20/2017 Sinus tachycardia 09/20/2017 Dyslipidemia 05/08/2017 Retention of urine 05/08/2017 Impaired fasting glucose 04/25/2016 Right ovarian cyst 05/31/2015 History of motion sickness 02/13/2014 Esophageal reflux 04/22/2013 Obstructive sleep apnea 08/02/2012 Depression 06/19/2012 HTN (hypertension) 06/19/2012 Resolved Problems Problem Noted Date Diagnosed Date Resolved Date Abnormal platelets ([facility]) 03/04/2020 12/20/2021 BMI 50.0-59.9, adult ([facility]) 06/11/2018 09/03/2018 Class 3 severe obesity with serious comorbidity in adult ([facility]) 09/23/2013 0 12/20/2021 Encounters Date Type Department Care Team Description 05/21/2024 Scan [facility] INFO SRV[facility] Scanned, Doc Med Group 04/29/2024 Scan [facility] HEALTH INFO SRVCS Scanned, Doc Med Group 04/24/2024 Telephone [facility] Medical Group Family & Internal Medicine [address] [address] Keyonna Armstrong APNP Refill Request; Question from Last 3 Months Immunizations Name Administration Dates Next Due Dtap (Generic) 04/25/2016 Fluzone 6 Months+ Quad (0.5 mL Prefilled Syringe) 05/19/2020,04/22/2019 Influenza (Generic) 06/19/2012 Influenza Adult (Generic) 06/24/2023,02/2022,05/04/2021,2019,05/16/2018,04/25/2016 Pneumococcal (Pneumovax 23) 05/04/2021 Pneumococcal (Prevnar 13) 04/22/2019 Shingrix 06/24/2023 Tdap (Generic) 04/25/2016 Family History Medical History Relation Comments Alcohol Abuse Brother 1 Alcohol Depression Brother 1 Liver Disease Brother 1 Alcohol Abuse Brother 2 Alcohol Diabetes Father None Father Stroke Maternal Grandmother Alcohol Abuse Mother Most of family Depression Mother Hypertension Mother Liver Disease Mother Depression Sister Thyroid Sister Relation Status Comments Brother 1 Brother 2 Father Maternal Grandmother Mother Sister Social History Tobacco Use Types Packs/Day Years [...] Gender Identity Female 07/17/2022 10:27 AM RESEARCH & INSIGHTS EXECUTIVE Sexual Orientation Straight 07/17/2022 10 :27 AM RESEARCH & INSIGHTS EXECUTIVE Last Filed Vital Signs Vital Sign Reading [...] Mass Index 42.4 02/27/2024 8:55 AM CDT Plan of Treatment Upcoming Encounters Date Type Department Care Team (Late st Contact Info) Description 07/25/2024 10:00 AM RESEARCH & INSIGHTS EXECUTIVE Office Visit [facility] Medical Group Family & Internal Medicine [place] [address] [place] [address] Keyonna Armstrong APNP [address] [place] [address] 07/31/2024 10:15 AM RESEARCH & INSIGHTS EXECUTIVE Office Visit [facility], [facility] [address] [place] [address] Pepe Mitchell MD [facility]. [facility] [address] [place], [place] [address] Health Maintenance Due Date Last Done Comments Cervical Cancer Screening Pap Smear (Age 30 to 64) Every 3 Years 1968 Kidney Health Evaluation 1968 Annual Physical 1971 Hepatitis C 1986 Hepatitis B Vaccines (1 of 3 - 19+ 3-dose series) 1987 Cervical Cancer Screening Pap with HPV Testing (Age 30 to 64) Every 5 Years 1998 Cervical Cancer Screening with HPV 1998 Mammogram Screening 08/09/2022 08/09/2020 Zoster Vaccines (2 of 2) 08/19/2023 06/24/2023 Hemoglobin A1C 09/20/2023 03/22/2023, 02/0 07/2021, 07/11/2018, Additional history exists COVID-19 Vaccine ( season) 2024 05/30/2022, 11/20/2020, 10/19/2020 Influenza Adult (#1) 2024 06/24/2023, 05/30/2022, 05/04/2021, Additional history exists Lipid Panel 11/22/2024 11/23/2023, 09/20, 10/21/2020, Additional history exists Diabetes: Retinopathy Eye Exam 07/09/2025 Postponed from 1986 (No Insurance Coverage) DTaP, Tdap and Td Vaccines (3 - Td or Tdap) 04/25/2026 04/25/2016, 04/25/2016 Colorectal Cancer Screening Colonoscopy (10 Years) 01/11/2030 01/12/2020, 01/12/2020 Pneumococcal Vaccine: Pediatrics (0 to 5 Years) and At-Risk Patients (6 to 64 Years) (3 of 3 - PPSV23 or PCV20) 2033 05/04/2021, 04/22/2019 Meningococcal Vaccine Aged Out No jordi orestes eligible based on patient's age to complete this topic RSV Immunizations Under 20 Months Aged Out No longer eligible based on patient's age to complete this topic Procedures Procedure Name Priority Date/Time Associated Diagnosis Comments LIPID PANEL Routine 11/23/2023 12:15 PM CDT HEMOGLOBIN, GLYCOSYLATED Routine 03/22/2023 PCOS (polycystic ovarian syndrome) Impaired fasting glucose MAMMOGRAM GENERIC (SCAN ORDER) 08/09/2020 COLONOSCOPY GENERIC (SCAN ORDER) Routine 01/12/2020 from Last 3 Months or Most Recently Relevant to Health Maintenance Results * (ABNORMAL) LIPID PANEL (11/23/2023 12:15 PM CDT) CHOLESTEROL 186 <200 mg/dL [place] [place] HDL 48(L) > OR = 50 mg/dL [place] [place] TRIGLYCERIDES 248(H) <150 mg/dL [place] [place] Comment: If a non-fasting specimen was collected, consider repeat triglyceride testing on a fasting specimen if clinically indicated. Alexa et al. J. of Clin. Lipidol. 2015;9:129-169. LDL (CALCULATED) 103(H) mg/dL (calc) [place] [place] Comment: Reference range: <100 Desirable range <100 mg/dL for primary prevention; ?? <70 mg/dL for patients with CHD or diabetic patients with > or = 2 CHD risk factors. LDL-C is now calculated using the Carlos Enrique calculation, which is a validated novel method providing better accuracy than the Friedewald equation in the estimation of LDL-C. Deep GREER et al. JAMAR. 2013;310(19): 3566-4546 (http://education.Linekong/faq/OYJ043) CHOL/HDL RATIO 3.9 <5.0 (calc) [place] [place] NON HDL CHOLESTEROL 138(H) <130 mg/dL (calc) [place] [place] Comment: For patients with diabetes plus 1 major ASCVD risk factor, treating to a non-HDL-C goal of <100 mg/dL (LDL-C of <70 mg/dL) is considered a therapeutic option. 11/23/2023 12:1 5 PM CDT 11/23/2023 12:20 PM CDT Narrative [facility] [employer] - YEFRI ORDERS - 12/05/2023 2:55 PM CDT FASTING:YES FASTING: YES Resulting Agency Comment Performing Organization Information: ?Site ID: [id number] ?Name: [facility] ?Address: [address] [address] ?Director: Josiah Jones Keyonna [facility] Final Resul t Tã Em [facility] - YEFRI ORDERS [facility] [address], [place] * A1C (BACK OFFICE) (03/22/2023) [facility] A1C 5.7 % [facility] 03/22/2023 us Keyonna [facility] Final Resul t [facility] [address] [place] [address], [place] * MAMMOGRAM GENERIC (08/09/2020) Anatomical Region Laterality Modality Other 08/09/2020 Narrative 08/09/2020 Ordered by an unspecified provider. us Documents Scanned SCANNING Final Result * COLONOSCOPY (01/12/2020) us Documents Scanned SCANNING Final Result Performing Organization Address City/State/[facility] Co de Phone Number [facility] ONBASE from Last 3 Months or Most Recently Relevant to Health Maintenance Insurance [facility] Care Teams Crochet Beader Relationship Specialty Start Date End Date Keyonna Armstrong APNP [address] [place] [address] PCP - General NURSE PRACTITIONER 05/06/18
--- OUTSIDE RECORDS SUMMARY | 2024-07-10 22:57 | XMS_ITS | Encounter Summary ---
Author Organization [facility] Address [address] [place] [address]. [place], [place] [address] [place] [address] Care Team Providers Care Corrugator Supervisor Name Role Phone Keyonna Armstrong Primary Care Provider [phone] Reason for Visit * Reason Onset Date Comments Consult 12/04/2023 Encounter Details Date Type Department Care Team (Late st Contact Info) Description 12/04/2023 [place] [address] Susi Parikh, RMA Consult Social History Tobacco [...] CDT Gender Identity Female 07/17/2022 10:27 AM CUT TO LENGTH OPERATOR Sexual Orientation Straight 07/17/2022 10 :27 AM CUT TO LENGTH OPERATOR documented as of this encounter Progress Notes * TINO Knowles - 12/04/2023 10:12 AM CDT DANK full, unable to leave [address] [place] [address] to schedule consult per H NEVAEH Armstrong. Will send letter for patient to contact our office to schedule. documented in this encounter Plan of Treatment Upcoming Encounters Date Type Department Care Team (Late st Contact Info) Description 07/25/2024 10:00 AM CUT TO LENGTH OPERATOR Office Visit [facility] Medical Group Family & Internal Medicine - [place] [address] [place] [address] Keyonna Armstrong APNP [address] [place] [address] 07/31/2024 10:15 AM CUT TO LENGTH OPERATOR Office Visit [facility], [facility] [address] [place] [address] Pepe Mitchell MD Three [facility]. [facility] [address] [place], [place] [address] documented as of this encounter Visit Diagnoses Not on filedocumented in this encounter Additional Health Concerns Assessment Noted Time PHQ-9 Depression Total Score: 22 020 3:46 PM CUT TO LENGTH OPERATOR documented as of this encounter Care Teams Corrugator Supervisor Relationship Specialty Start Date End Date Keyonna Armstrong APNP [address] [place] [address] PCP - General NURSE PRACTITIONER 05/06/18 documented as of this encounter
--- OUTSIDE RECORDS SUMMARY | 2024-07-10 22:57 | XMS_ITS | Encounter Summary ---
Author Organization [facility] Address [address] [place] [address]. [place], [place] [address] [place] [address] Care Team Providers Care Gas Pipe Layer Name Role Phone Keyonna Armstrong Primary Care Provider [phone] Reason for Visit * Reason Onset Date Comments Consult 12/11/2023 Encounter Details Date Type Department Care Team (Late st Contact Info) Description 12/11/2023 [place] [address] Susi Parikh, RMA Consult Social History Tobacco [...] CDT Gender Identity Female 07/17/2022 10:27 AM WELDING MACHINE OPERATOR Sexual Orientation Straight 07/17/2022 10 :27 AM WELDING MACHINE OPERATOR documented as of this encounter Progress Notes * TINO Knowles - 12/11/2023 4:34 PM CDT Returned call and left message with Joanne/dtr-in-law to schedule consult per H NEVAEH Armstrong documented in this encounter Plan of Treatment Upcoming Encounters Date Type Department Care Team (Late st Contact Info) Description 07/25/2024 10:00 AM WELDING MACHINE OPERATOR Office Visit [facility] Medical Group Family & Internal Medicine - [place] [address] [place] [address] Keyonna Armstrong APNP [address] [place] [address] 07/31/2024 10:15 AM WELDING MACHINE OPERATOR Office Visit [facility], [facility] [address] [place] [address] Pepe Mitchell MD Three [facility]. [place] [address] [place] [address] documented as of this encounter Visit Diagnoses Not on filedocumented in this encounter Additional Health Concerns Assessment Noted Time PHQ-9 Depression Total Score: 22 07/29/ 020 3:46 PM WELDING MACHINE OPERATOR documented as of this encounter Care Teams Gas Pipe Layer Relationship Specialty Start Date End Date Keyonna Armstrong APNP [address] [place] [address] PCP - General NURSE PRACTITIONER 05/06/18 documented as of this encounter
--- OUTSIDE RECORDS SUMMARY | 2024-07-10 22:57 | XMS_ITS | Encounter Summary ---
Author Organization [facility] Address [address] [place] [address]. [place] [id number] [place] [address] Care Team Providers Care Paper Carrier Name Role Phone Keyonna Armstrong Primary Care Provider [phone] Reason for Visit * Reason Onset Date Comments Prior Authorization 02/27/2024 Pantoprazole 20mg #90-GoodRX Encounter Details Date Type Department Care Team (Late st Contact Info) Description 02/27/2024 Telephone [facility] Medical Group Family & Internal Medicine [place] [address] [place] [address] Keyonna Armstrong APNP [facility] [place] [address] Prior Authorization (Pantoprazole 20mg #90-GoodRX) Social History Tobacco Use Types Packs/Day Years [...] CDT Gender Identity Female 07/17/2022 10:27 AM FINGERPRINT CLERK Sexual Orientation Straight 07/17/2022 10 :27 AM FINGERPRINT CLERK documented as of this encounter Progress Notes * Julieta Pelaoy MA - 02/27/2024 11:21 AM CDT PA request received for Pantoprazole 20 mg #90 tablets. NO PA REQ can use Good RX for the full amount through [facility] for around $19.63> Patient notified via jefferson Butler rma documented in this encounter Plan of Treatment Upcoming Encounters Date Type Department Care Team (Late st Contact Info) Description 07/25/2024 10:00 AM FINGERPRINT CLERK Office Visit [facility] Medical Group Family & Internal Medicine - [place] [address] [place] [address] Keyonna Armstrong APNP [facility] [place] [address] 07/31/2024 10:15 AM FINGERPRINT CLERK Office Visit [facility], [facility] [address] [place] [address] Pepe Mitchell MD [facility]. [facility] [address] [place] [address] documented as of this encounter Visit Diagnoses Not on filedocumented in this encounter Additional Health Concerns Assessment Noted Time PHQ-9 Depression Total Score: 22 020 3:46 PM FINGERPRINT CLERK documented as of this encounter Care Teams Paper Carrier Relationship Specialty Start Date End Date Keyonna Armstrong APNP [address] [place] [address] PCP - General NURSE PRACTITIONER 05/06/18 documented as of this encounter
--- OUTSIDE RECORDS SUMMARY | 2024-07-10 22:57 | XMS_ITS | Encounter Summary ---
Author Organization [facility] Address [address] [place] [address]. [place], [place] [id number] [place] [id number] Care Team Providers Care Drum Sander Offbearer Name Role Phone Keyonna Armstrong Primary Care Provider [phone] Encounter Details Date Type Department Care Team (Latest Contact Info) Description 05/21/2024 Scan HEALTH INFO SRV[facility] Scanned, Doc Med [...] CDT Gender Identity Female 07/17/2022 10:27 AM PRODUCTS MECHANICAL DESIGN ENGINEER Sexual Orientation Straight 07/17/2022 10 :27 AM PRODUCTS MECHANICAL DESIGN ENGINEER documented as of this encounter Plan of Treatment Upcoming Encounters Date Type Department Care Team ( Contact Info) Description 07/25/2024 10:00 AM PRODUCTS MECHANICAL DESIGN ENGINEER Office Visit [facility] Family & Internal Medicine [address] [address] Keyonna Armstrong APNP [address] [place] [address] 07/31/2024 10:15 AM PRODUCTS MECHANICAL DESIGN ENGINEER Office Visit [facility], [facility] [address] [place], [place] [address] Pepe Mitchell MD Three [facility]. [facility] [address] [place] [address] documented as of this encounter Visit Diagnoses Not on filedocumented in this encounter Additional Health Concerns Assessment Noted Time PHQ-9 Depression Total Score: 22 020 3:46 PM PRODUCTS MECHANICAL DESIGN ENGINEER documented as of this encounter Care Teams Drum Sander Offbearer Relationship Specialty Start Date End Date Keyonna Armstrong APNP [address] [place] [address] PCP - General NURSE PRACTITIONER 05/06/18 documented as of this encounter
--- OUTSIDE RECORDS SUMMARY | 2024-07-10 22:57 | XMS_ITS | Encounter Summary ---
Author Organization [facility] Address [address] [place] [address]. [place] [id number] [place] [address] Care Team Providers Care Research Worker Encyclopedia Name Role Phone Keyonna Armstrong Primary Care Provider [phone] Reason for Visit * Reason Onset Date Comments Information 11/27/2023 Encounter Details Date Type Department Care Team (Late st Contact Info) Description 11/27/2023 Telephone [facility] Family & Internal Medicine [facility] [address] [place] [address] Keyonna Armstrong APNP [address] [place] [address] Information Social History Tobacco Use Types Packs/Day Years [...] CDT Gender Identity Female 07/17/2022 10:27 AM DECK CADET Sexual Orientation Straight 07/17/2022 10 :27 AM DECK CADET documented as of this encounter Progress Notes * Claritza Velázquez MA - 11/27/2023 4:08 PM CDT If they call back, tell them to send a fax asking for clarification. This makes no sense. * Adri Oviedo - 11/27/2023 3:57 PM CDT [facility] called in stated needing Diagnosis information for diabetes or CHF. Please advise. documented in this encounter Plan of Treatment Upcoming Encounters Date Type Department Care Team (Late st Contact Info) Description 07/25/2024 10:00 AM DECK CADET Office Visit [facility] Family & Internal Medicine [facility] [address] [place] [address] Keyonna Armstrong APNP [address] [place] [address] 07/31/2024 10:15 AM DECK CADET Office Visit [facility], [facility] [address] [place] [address] Pepe Mitchell MD Three [facility]. [facility] [address] [place] [address] documented as of this encounter Visit Diagnoses Not on filedocumented in this encounter Additional Health Concerns Assessment Noted Time PHQ-9 Depression Total Score: 22 020 3:46 PM DECK CADET documented as of this encounter Care Teams Research Worker Encyclopedia Relationship Specialty Start Date End Date Keyonna Armstrong APNP [facility] [place] [address] PCP - General NURSE PRACTITIONER 05/06/18 documented as of this encounter
--- OUTSIDE RECORDS SUMMARY | 2024-07-10 22:57 | XMS_ITS | Encounter Summary ---
Author Organization [facility] Address [address] [place] [address]. 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 Name Role Phone Keyonna Armstrong Primary Care Provider [phone] Reason for Referral * Consultation (Urgent) - Authorized Specialty Diagnoses / Procedures Referred By Contac t Referred To Contact CARDIOLOGY / Cardiology Diagnoses Sinus tachycardia Procedures OFFICE/OUTPATIENT NEW LOW MDM 30-44 MINUTES OFFICE/OUTPT VISIT,NEW,LEVL IV OFFICE/OUTPT VISIT,NEW,LEVL V OFFICE/OUTPT VISIT,EST,LEVL III OFFICE/OUTPT VISIT,EST,LEVL IV OFFICE/OUTPT VISIT,EST,LEVL V Keyonna Armstrong APNP [facility] [place] [address] Phone: tel: fax: [address] [address] Phone: tel: fax: Referral ID Status Reason Start Date Expiration Date Visits Requested Visits Authorized [id number] Authorized Specialty Services 11/23/2023 12/22/2024 99 99 * Consultation/Treatment (Routine) - Authorized Specialty Diagnoses / Procedures Referred By Contac t Referred To Contact ENDOCRINOLOGY Diagnoses Adrenal adenoma, unspecified laterality Procedures OFFICE/OUTPATIENT NEW LOW MDM 30-44 MINUTES OFFICE/OUTPT VISIT,NEW,LEVL IV OFFICE/OUTPT VISIT,NEW,LEVL V OFFICE/OUTPT VISIT,EST,LEVL III OFFICE/OUTPT VISIT,EST,LEVL IV OFFICE/OUTPT VISIT,EST,LEVL V Keyonna Armstrong APNP [address] [place] [address] Phone: tel: fax: Carlene Crocker MD [address] [facility] [address] [place] [address] Phone: tel: fax: Referral ID Status Reason Start Date Expiration Date V isits Requested Visits Authorized [id number] Authorized 11/23/2023 12/23/2024 99 99 Reason for Visit * Reason Comments Hypertension Encounter Details Date Type Department Care Team (Late st Contact Info) Description 11/23/2023 9:20 AM CDT Office Visit [facility] Family & Internal Medicine [facility] [address] [place] [address] Keyonna Armstrong APNP [address] [place] [address] Hypertension Social History Tobacco Use Types Packs/Day Years [...] CDT Gender Identity Female 07/17/2022 10:27 AM 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 Sexual Orientation Straight 07/17/2022 10 :27 AM STAFFING 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 documented as of this encounter Last Filed Vital Signs Vital Sign Reading Time Taken Comments Blood Pressure 124/86 11/23/2023 9:29 AM CDT Pulse 130 11/23/2023 9:29 AM CDT Temperature 36.2 ??C (97.2 ??F) 11/23/2023 9:29 AM CD T Respiratory Rate 16 11/23/2023 9:29 AM CDT Oxygen Saturation 97% 11/23/2023 9:29 AM CDT Inhaled Oxygen Concentration - - Weight 118.5 kg (261 lb 3.2 oz) 11/23/2023 9:29 AM CDT Height 162.6 cm (5' 4) 11/23/2023 9:29 AM CDT Body Mass Index 44.83 11/23/2023 9:29 AM CDT documented in this encounter Progress Notes * YOBANI Cruz - 11/23/2023 9:20 AM CDT Images from the original note were not included. [facility] FAMILY AND INTERNAL MEDICINE OFFICE VISIT Reason for Visit: Hypertension History of Present Illness: 53 yo female here today to follow up on her HTN, tachycardia. BP is controlled today, however her HR is quite elevated even on 100 mg of metoprolol. Patient indicates that she was seen in an urgent care a few weeks back and was told to increase her metoprolol to twice daily which she has done. Unfortunately, her metoprolol was last filled on September 02 only for a 90-day supply taking it once daily. Patient thinks that she might be out of this medication but cannot give me a clear answer as to when this medication ran out. I was not informed andnot aware that she had doubled this medication. Tachycardia is not new for her. She has been seen by endo and is supposed to be following up be can't recall the last time she was seen by endo. She isdue for and will check labs and EKG today. She denies any chest pain or shortness of breath. ROS: Review of Systems Constitutional: Negative for chills and fever. Eyes: Negative for blurred vision and double vision. Respiratory: Negative for cough and shortness of breath. Cardiovascular: Negative for chest pain, palpitations and leg swelling. Gastrointestinal: Negative for abdominal pain and vomiting. Genitourinary: Negative for dysuria and urgency. Neurological: Negative for dizziness and headaches. Psychiatric/Behavioral: Negative for depression. The patient is not nervous/anxious. Medications: Current Outpatient Medications: amLODIPine (NORVASC) 5 MG tablet, TAKE 1 TABLET (5 MG TOTAL) BY MOUTH DAILY. PATIENT MUST BE SEEN FOR FURTHER REFILLS, Disp: 90 tablet, Rfl: 0 Biotin 5000 MCG Cap, , Disp: , Rfl: buPROPion SR (ZYBAN) 150 MG 12 hr tablet, TAKE 1 TABLET BY MOUTH TWICE A DAY, Disp: 60 tablet, Rfl:1 Cranberry-Vitamin C-Probiotic (AZO CRANBERRY) 250-30 MG Tab, [...] 3 (three) times daily., Disp: , Rfl: ibuprofen (MOTRIN) 800 MG tablet, take 1 tablet by mouth three times a day as needed, Disp: 60 tablet, Rfl: 1 lisinopril (PRINIVIL) 40 MG tablet, TAKE 1 TABLET BY MOUTH EVERY DAY, Disp: 90 tablet, Rfl: 1 LORazepam (ATIVAN) [...] AT BEDTIME, Disp: 270 tablet, Rfl: 1 metoprolol tartrate (LOPRESSOR) 100 MG tablet, Take 1 tablet (100 mg total) by mouth 2 (two) times daily., Disp: 60 tablet, Rfl: 5 mirtazapine (REMERON) 15 MG tablet, TAKE 1 TABLET BY MOUTH EVERYDAY AT BEDTIME, Disp: 90 tablet, Rfl: 1 Misc Natural Products (ELDERBERRY/VITAMIN C/ZINC) Chew Tab, , Disp: , Rfl: Multiple Vitamin (MULTI-VITAMIN) tablet, Take 1 tablet by mouth daily., Disp: , Rfl: Multiple Vitamins-Minerals (HAIR SKIN NAILS OR), , Disp: , Rfl: Multiple Vitamins-Minerals (LIVER DETOX OR), , Disp: , Rfl: pantoprazole EC (PROTONIX) 20 MG tablet, TAKE 1 TABLET BY MOUTH DAILY. PATIENT MUST BE SEEN FOR FURTHER REFILLS, Disp: 90 tablet, Rfl: 0 progesterone (PROMETRIUM) 200 MG capsule, TAKE 1 CAPSULE BY MOUTH EVERY DAY IN THE EVENING, Disp: ,Rfl: TURMERIC CURCUMIN OR, , Disp: , Rfl: venlafaxine XR (EFFEXOR-XR) 75 MG 24 hr capsule, TAKE 1 CAPSULE BY MOUTH EVERY MORNING AND 2 CAPSULES EVERY EVENING, Disp: 270 capsule, Rfl: 0 vitamin D3 (CHOLECALCIFEROL) 25 mcg tablet, Take 1 tablet (25 mcg total) by mouth daily., Disp: , Rfl: zolpidem CR (AMBIEN CR) 12.5 MG tablet, Take 1 tablet (12.5 mg total) by mouth nightly as needed., Disp: , Rfl: hydroCHLOROthiazide (HYDRODIURIL) 25 MG tablet, TAKE 1 TABLET BY MOUTH EVERY DAY Patient must be seen for further refills (Patient not taking: Reported on 10/04/2023), Disp: 30 tablet, Rfl: 0 MOUNJARO 10 MG/0.5ML injection, INJECT 10 MG UNDER THE SKIN EVERY 7 DAYS, Disp: , Rfl: Allergies: Review of patient's allergies indicates: Allergen Reactions Trazodone Hallucinations Medical History: Past Medical History: Diagnosis Date Adrenal adenoma 10/11/2017 Anxiety 09/20/2017 Cholecystitis 06/11/2018 Depression 06/19/2012 Diabetes mellitus ([facility]) Esophageal reflux 04/22/2013 Hypertension 06/19/2012 Insomnia 04/02/2018 Menorrhagia 04/02/2018 Morbid obesity ([facility]) 09/23/2013 Obstructive sleep apnea 08/02/2012 Sinus tachycardia 09/20/2017 Surgical History: Past Surgical History: Procedure Laterality Date CHOLECYSTECTOMY COLONOSCOPY N/A 01/12/2020 COLONOSCOPY SCREENING performed by Burt Payne MD at [facility] GI GASTRIC BYPASS N/A 2004 Social History: Social [...] of Onset Liver Disease Mother Jean Carlos ortiz mother Hypertension Mother Jean Carlos ortiz mother Alcohol Abuse Mother Jean Carlos ortiz mother Most of family Depression Mother Jean Carlos ortiz mother Diabetes Father Duglas Cook None Father Duglas Cook Thyroid Sister Vidya juan miguel sister Depression Sister Vidya juan miguel sister Liver Disease Brother Rehan ortiz nephew Alcohol Abuse Brother Rehan ortiz nephew Alcohol Depression Brother Rehan ortiz nephew Stroke Maternal Grandmother Monica stanton Alcohol Abuse Brother Salbador ortiz Alcohol PE: Physical Exam Vitals and nursing note reviewed. HENT: Head: Normocephalic and atraumatic. Eyes: General: No scleral icterus. Conjunctiva/sclera: Conjunctivae normal. Neck: Trachea: No tracheal deviation. Cardiovascular: Rate and Rhythm: Regular rhythm. Tachycardia present. Heart sounds: Normal heart sounds. Pulmonary: Effort: Pulmonary effort is normal. No respiratory distress. Breath sounds: Normal breath sounds. No stridor. No wheezing. Abdominal: General: Bowel sounds are normal. There is no distension. Palpations: Abdomen is soft. There is no mass. Tenderness: There is no abdominal tenderness. There is no guarding or rebound. Musculoskeletal: General: No deformity. Normal range of motion. Cervical back: Normal range of motion and neck supple. Skin: General: Skin is warm and dry. Findings: No erythema. Neurological: Mental Status: She is alert and oriented to person, place, and time. Gait: Gait is intact. Psychiatric: Mood and Affect: Mood and affect normal. Filed Vitals: 11/23/23 0929 BP: 124/86 Pulse: (!) 130 Resp: 16 Temp: 97.2 ??F (36.2 ??C) TempSrc: Skin SpO2: 97% Weight: 118.5 kg (261 lb 3.2 oz) Height: 1.626 m (5' 4) Labs: Labs Reviewed Diagnoses/Impression: 1. Primary hypertension Chronic metoprolol tartrate (LOPRESSOR) 100 MG tablet 2. Sinus tachycardia metoprolol tartrate (LOPRESSOR) 100 MG tablet EKG WELCHALLEN ACQUIRED Ambulatory referral to Cardiology, Adult (OTHER) METANEPHRINES FRACTIONATED PLASMA CATECHOLAMINES PLASMA CANCELED: METANEPHRINES FRACTIONATED PLASMA CANCELED: CATECHOLAMINES PLASMA CANCELED: Ambulatory referral to Cardiology, Adult (OTHER) 3. Adrenal adenoma, unspecified laterality Chronic Ambulatory referral to Endocrinology (OTHER) Recommendations and Plan: 1. Primary hypertension - metoprolol tartrate (LOPRESSOR) 100 MG tablet; Take 1 tablet (100 mg total) by mouth 2 (two) times daily. Dispense: 60 tablet; Refill: 5 Change metoprolol to tartrate 100 mg PO BID 2. Sinus tachycardia - metoprolol tartrate (LOPRESSOR) 100 MG tablet; Take 1 tablet (100 mg total) by mouth 2 (two) times daily. Dispense: 60 tablet; Refill: 5 - EKG WELCHALLEN ACQUIRED - Ambulatory referral to Cardiology, Adult (OTHER) - METANEPHRINES FRACTIONATED PLASMA; Future - CATECHOLAMINES PLASMA; Future - METANEPHRINES FRACTIONATED PLASMA EKG today--unremarkable--no acute findings---sinus tach. I did refer to cardiology Labs to include catecholamines and metanephrines ordered Updated endo referral initiated today. Discussed compliance of meds with pt and dangers of abruptly stopping meds 3. Adrenal adenoma, unspecified laterality - Ambulatory referral to Endocrinology (OTHER) I personally spent a total of 33 minutes on the day of the encounter. This includes [id number]-kr-uhjr and ztv-dxtc-il-face time I provided on the day of the encounter & excludes time spent performing separately reportable services. Orders Placed This Encounter METANEPHRINES FRACTIONATED PLASMA CATECHOLAMINES PLASMA Ambulatory referral to Endocrinology (OTHER) Ambulatory referral to Cardiology, Adult (OTHER) MOUNJARO 10 MG/0.5ML injection zolpidem CR (AMBIEN CR) 12.5 MG tablet metoprolol tartrate (LOPRESSOR) 100 MG tablet EKG WELCHALLEN ACQUIRED Cannot display discharge medications since this is not an admission. PCP: YOBANI Cruz 11/23/2023 documented in this encounter Plan of Treatment Upcoming Encounters Date Type Department Care Team (Late st Contact Info) Description 07/25/2024 10:00 AM STAFFING 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 Office Visit [facility] Family & Internal Medicine - [place] [address] [place] [address] Keyonna Armstrong APNP [address] [place] [address] 07/31/2024 10:15 AM STAFFING 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 Office Visit [facility] [address] [place], [place] [id number] Pepe Mitchell MD [facility]. [facility] [address] [place], [place] [id number] Scheduled Orders Name Type Priority Associated Diagnoses Orde r Schedule CATECHOLAMINES PLASMA Lab Routine Sinus tachycardia Expected: 11/23/2023, Expires: 11/22/2024 Scheduled Referrals Name Type Priority Associated Diagnoses Orde r Schedule Ambulatory referral to Endocrinology (OTHER) Referral Routine Adrenal adenoma, unspecified laterality Ordered: 11/23/2023 Ambulatory referral to Cardiology, Adult (OTHER) Referral Routine Sinus tachycardia Ordered: 11/23/2023 documented as of this encounter Procedures Procedure Name Priority Date/Time Associated Diagnosis Comments TSH W/REFLEX FT3 AND FT4 Routine 024 12:15 PM CDT URINALYSIS COMPLETE W/RFX TO CULTURE Routine 11/23/2023 12:15 PM CDT METANEPHRINES FRACTIONATED PLASMA Routine 11/23/2023 12:15 PM CDT Sinus tachycardia CATECHOLAMINES PLASMA Routine 11/23/2023 12:15 PM CDT COMPREHENSIVE METABOLIC PANEL Routine 11/23/2023 12:15 PM CDT LIPID PANEL Routine 11/23/2023 12:15 PM CDT CBC W/DIFF AUTOMATED Routine 11/23/2023 12:15 PM CDT ELECTROCARDIOGRAM (NON MIDMARK ACQUIRED) Routine 11/23/2023 10:07 AM CDT Sinus tachycardia documented in this encounter Results * TSH W/REFLEX FT3 AND FT4 (11/23/2023 12:15 PM CDT) TSH 0.46 mIU/L [facility] Comment: Our records indicate that you have ordered a client custom reflex order code. Only the initial test was performed because we do not have a client custom reflex testing authorization request form on file for you. Please contact a client administrator if you would like additional testing done on this patient or contact your hunting sales leader to obtain a client custom reflex testing authorization request form. ?Reference Range ?> or = 20 Years ??0.40-4.50 ? Ranges ?First trimester ?0.26-2.66 ?Second trimester ?? 0.55-2.73 ?Third trimester ?0.43-2.91 11/23/2023 12:1 5 PM CDT 11/23/2023 12:20 PM CDT Narrative [facility] - YEFRI ORDERS - 12/05/2023 2:55 PM CDT FASTING:YES FASTING: YES Resulting Agency Comment Performing Organization Information: ?Site ID: [id number] ?Name: [facility] ?Address: [address] [address] ?Director: Josiah Jones MD Keyonna [facility] Final Resul t [facility] - Y[facility] ORDERS [facility] [address] [place] [address], * CATECHOLAMINES PLASMA (11/23/2023 12:15 PM CDT) EPINEPHRINE PLASMA CATECHOLAMINE 12 pg/mL [facility] Comment: Reference Range: SUPINE: <58 UPRIGHT: <82 NOREPINEPHRINE (U) 610 pg/mL [facility] Comment: Reference Range: SUPINE: 149-564 UPRIGHT: 199-937 DOPAMINE 16 pg/mL [facility] Comment: Reference Range: SUPINE: <16 UPRIGHT: <27 CATECHOLAMINE (PLASMA) 638 pg/mL [facility] Comment: Reference Range: SUPINE: <632 UPRIGHT: <1046 Due to stress, plasma catecholamine levels are generally unreliable in infants and small children. Urinary catecholamine assays are more reliable. This test was developed and its analytical performance characteristics have been determined by [facility]. It has not been cleared or approved by FDA. This assay has been validated pursuant to the CLIA regulations and is used for clinical purposes. 11/23/2023 12:1 5 PM CDT 11/23/2023 12:20 PM CDT Narrative [facility] - [facility] ORDERS - 12/05/2023 2:55 PM CDT FASTING:YES FASTING: YES Resulting Agency Comment Performing Organization Information: ?Site ID: [id number] ?Name: [facility], ?Address: [address] [place] [phone] ?Director: Estefania Hawkins MD,PhD,EKATERINA Keyonna [facility] Final Resul t [facility] [address] [place] [address], [place] * (ABNORMAL) URINALYSIS COMPLETE W/RFX TO CULTURE (11/23/2023 12:15 PM CDT) COLOR (U) YELLOW YELLOW [place] APPEARANCE SEMEN CLEAR CLEAR [place] SPECIFIC GRAVITY (U) 1.005 1.001 - 1.035 [place] PH (U) 7.0 5.0 - 8.0 [place] URINE GLUCOSE NEGATIVE NEGATIVE [place] BILIRUBIN (U) NEGATIVE NEGATIVE [place] KETONE (U) NEGATIVE NEGATIVE [place] BLOOD (U) NEGATIVE NEGATIVE [place] PROTEIN (U) NEGATIVE NEGATIVE [place] NITRITES NEGATIVE NEGATIVE [place] LEUKOCYTES (U) NEGATIVE NEGATIVE [place] WBC/HPF NONE SEEN < OR = 5 /HPF [place] RBC/HPF NONE SEEN < OR = 2 /HPF [place] SQUAMOUS EPITHELIAL (U) 0-5 < OR = 5 /HPF [place] BACTERIA (U) FEW(A) NONE SEEN /HPF [place] HYALINE CASTS NONE SEEN NONE SEEN /LPF [place] Note [place] Comment: This urine was analyzed for the presence of WBC, RBC, bacteria, casts, and other formed elements. Only those elements seen were reported. REFLEX URINE CULTURE: [place] Comment:NO CULTURE INDICATED 11/23/2023 12:1 5 PM CDT 11/23/2023 12:20 PM CDT Narrative [facility] - [facility] ORDERS - 12/05/2023 2:55 PM CDT FASTING:YES FASTING: YES Resulting Agency Comment Performing Organization Information: ?Site ID: [id number] ?Name: [facility] ?Address: [facility] [place] [address] ?Director: Josiah Jones Keyonna Armstrong YOBANI URINE ORDERABLES Final Resu lt [facility] [place] [address] [place] [address], * (ABNORMAL) CBC W/DIFF AUTOMATED (11/23/2023 12:15 PM CDT) WBC 10.5 3.8 - 10.8 Thousand/u L [place] RBC 4.57 3.80 - 5.10 Million/uL [place] HGB 15.0 11.7 - 15.5 g/dL [place] HCT 46.0(H) 35.0 - 45.0 % [place] MCV 100.7(H) 80.0 - 100.0 fL [place] MCH 32.8 27.0 - 33.0 pg [place] MCHC 32.6 32.0 - 36.0 g/dL [place] RDW 13.2 11.0 - 15.0 % [place] PLT 373 140 - 400 Thousand/u L [place] MPV 9.3 7.5 - 12.5 fL [place] ABS. NEUTROPHILS 5,471 1,500 - 7,800 cells/uL [place] ABS. LYMPHOCYTES 4,032(H) 850 - 3,900 cells/uL [place] ABS. MONOCYTES 861 200 - 950 cells/uL [place] ABS. EOSINOPHILS 84 15 - 500 cells/uL [place] ABS. BASOPHILS 53 0 - 200 cells/uL [place] SEG NEUTROPHILS 52.1 % [facility] [place] LYMPHOCYTES 38.4 % [place] MONOCYTES 8.2 % [place] EOSINOPHILS 0.8 % [place] BASOPHILS 0.5 % [place] 11/23/2023 12:1 5 PM CDT 11/23/2023 12:20 PM CDT Narrative [facility] - 12/05/2023 2:55 PM CDT FASTING:YES FASTING: YES Resulting Agency Comment Performing Organization Information: ?Site ID: [id number] ?Name: [facility] ?Address: [address] [place] [address] ?Director: Josiah Jones Keyonna [facility] Final Resul t [facility] - [facility] ORD[facility] [place] [id number] [place] [phone], * COMPREHENSIVE METABOLIC PANEL (11/23/2023 12:15 PM CDT) [facility] GLUCOSE 88 65 - 99 mg/dL [place] Comment: ? Fasting reference interval BUN 10 7 - 25 mg/dL [place] CREATININE S/P/B 0.62 0.50 - 1.03 mg/dL [place] GFR ESTIMATE 105 > OR = 60 mL/min/1. 73m2 [place] BUN CREATININE RATIO SEE NOTE: (calc) [place] Comment: ?? Not Reported: BUN and Creatinine are within ?? reference range. ? SODIUM S/P/B 140 135 - 146 mmol/L [place] POTASSIUM S/P/B 3.7 3.5 - 5.3 mmol/L [place] CHLORIDE S/P/B 102 98 - 110 mmol/L [place] CO2 26 20 - 32 mmol/L [place] CALCIUM S/P/B 9.7 8.6 - 10.4 mg/dL [place] TOTAL PROTEIN S/P/B 7.2 6.1 - 8.1 g/dL [place] ALBUMIN S/P/B 4.3 3.6 - 5.1 g/dL [facility] [place] GLOBULIN 2.9 1.9 - 3.7 g/dL (calc) [facility] ALBUMIN/GLOBULIN RATIO 1.5 1.0 - 2.5 (calc) [place] BILIRUBIN TOTAL S/P/B 0.5 0.2 - 1.2 mg/dL [place] ALKALINE PHOSPHATASE S/P/B 95 37 - 153 U/L [place] AST 18 10 - 35 U/L [place] ALT 20 6 - 29 U/L [place] 11/23/2023 12:1 5 PM CDT 11/23/2023 12:20 PM CDT Narrative [facility] - [facility]EF[facility] ORDERS - 12/05/2023 2:55 PM CDT FASTING:YES FASTING: YES Resulting Agency Comment Performing Organization Information: ?Site ID: ?Name: [facility] ?Address: [address] [place] [phone] ?Director: Josiah Jones us Keyonna [facility] Final Resul t [facility] - [facility] ORDERS [address] [address], * (ABNORMAL) LIPID PANEL (11/23/2023 12:15 PM CDT) CHOLESTEROL 186 <200 mg/dL [place] HDL 48(L) > OR = 50 mg/dL [place] TRIGLYCERIDES 248(H) <150 mg/dL [place] Comment: If a non-fasting specimen was collected, consider repeat triglyceride testing on a fasting specimen if clinically indicated. Alexa et al. J. of Clin. Lipidol. 2015;9:129-169. LDL (CALCULATED) 103(H) mg/dL (calc) [place] Comment: Reference range: <100 Desirable range <100 mg/dL for primary prevention; ?? <70 mg/dL for patients with CHD or diabetic patients with > or = 2 CHD risk factors. LDL-C is now calculated using the Carlos Enrique calculation, which is a validated novel method providing better accuracy than the Friedewald equation in the estimation of LDL-C. Deep GREER et al. JAMAR. 2013;310(19): 4832-5893 (http://education.[employer]/faq/ZJB893) CHOL/HDL RATIO 3.9 <5.0 (calc) [facility] NON HDL CHOLESTEROL 138(H) <130 mg/dL (calc) [facility] [place] Comment: For patients with diabetes plus 1 major ASCVD risk factor, treating to a non-HDL-C goal of <100 mg/dL (LDL-C of <70 mg/dL) is considered a therapeutic option. 11/23/2023 12:1 5 PM CDT 11/23/2023 12:20 PM CDT Narrative [facility] - [facility]EF[facility] ORDERS - 12/05/2023 2:55 PM CDT FASTING:YES FASTING: YES Resulting Agency Comment Performing Organization Information: ?Site ID: [id number] ?Name: [facility] ?Address: [address] [place] [phone] ?Director: Josiah Jones Keyonna [facility] Final Resul t [facility] - [facility] ORDERS [facility] [address] [[email or web address]] * METANEPHRINES FRACTIONATED PLASMA (11/23/2023 12:15 PM CDT) [facility] METANEPHRINE FREE S/P/B <25 <=57 pg/mL [facility] Comment: This test was developed and its analytical performance characteristics have been determined by [place] It has not been cleared or approved by the U.S. Food and Drug Administration. This assay has been validated pursuant to the CLIA regulations and is used for clinical purposes. ? NORMETANEPHRINE FREE S/P/B 73 <=148 pg/mL [facility] Comment: This test was developed and its analytical performance characteristics have been determined by [facility] [place], [place]. It has not been cleared or approved by the U.S. Food and Drug Administration. This assay has been validated pursuant to the CLIA regulations and is used for clinical purposes. ? METANEPHRINES (U) 73 <=205 pg/mL [facility] Comment: For additional information, please refer to http://education.Wine[employer]on/faq/MetFractFree (This link is being provided for informational/educatio informational/educational purposes only.) Elevations >4-fold upper reference range: strongly suggestive of a pheochromocytoma(1). Elevations >1- 4-fold upper reference range: significant but not diagnostic, may be due to medications or stress. Suggest running 24 hr urine fractionated metanephrines and/or serum Chromagranin A for confirmation. Reference: (1)Gloria Epps et al, Plasma Chromogranin A or Urine Fractionated Metanephrines Follow-Up Testing Improves the Diagnostic Accuracy of Plasma Fractionated Metanephrines for Pheochromocytoma. The Journal of Clinical Endocrinology # Metabolism 93(1), 91-95, 2008. This test was developed and its analytical performance characteristics have been determined by [facility] [place], [place]. It has not been cleared or approved by the U.S. Food and Drug Administration. This assay has been validated pursuant to the CLIA regulations and is used for clinical purposes. ? 11/23/2023 12:1 5 PM CDT 11/23/2023 12:20 PM CDT Narrative [facility] - YEFRI ORDERS - 12/05/2023 2:55 PM CDT FASTING:YES FASTING: YES Resulting Agency Comment Performing Organization Information: ?Site ID: [id number] ?Name: [facility] ?Address: [address] [place] [address] [place] ?Director: Oscar Ulloa M.D.,PhD Keyonna H Patti APNP LABORATORY Final Resul t [facility] - YEFRI ORDERS [facility] [address] [place] [address], * BOSSMAN LARA ACQUIRED (11/23/2023 10:07 AM CDT) 11/23/2023 10:0 7 AM CDT Narrative [facility] - 11/23/2023 12:13 PM CDT ?[facility] Medical [facility] ?[address] [place] [address] ? Test Date: ?2023-11-23 Pat Name: ? VERONICA EVANGELISTA ?Department: ?? 171 ? Room: ? Gender: ? Female ? Customer Account Coordinator: ?? : ?1970 ? Requested By: KEVIN PAREDES Order Number: [id number] ?Reading : ?? Kevin Paredes ? Measurements Intervals ?[place] ? Rate: ? 125 ?P: ?38 WI: ? 149 ?QRS: ?31 QRSD: ? 89 ? T: ?16 QT: ? 336 ? QTc: ?485 ? Interpretive Statements SINUS TACHYCARDIA WITH OCCASIONAL SUPRAVENTRICULAR PREMATURE COMPLEXES ABNORMAL RHYTHM ECG Kevin Paredes DO Procedure Note Kevin Paredes DO - 11/23/2023 [facility] [address] [place] [address] [place] [address] Test Date: 2023-11-23 Pat Name: VERONICA EVANGELISTA Department: 171 Room: Gender: Female Customer Account Coordinator: : 1970 Requested By: KEVIN PAREDES Order Number: [id number] Yessica MD: Kevin Paredes Measurements Intervals [place] Rate: 125 P: 38 WI: 149 QRS: 31 QRSD: 89 T: 16 QT: 336 QTc: 485 Interpretive Statements SINUS TACHYCARDIA WITH OCCASIONAL SUPRAVENTRICULAR PREMATURE COMPLEXES ABNORMAL RHYTHM ECG Kevin Paredes DO Kevin Paredes DO PROCEDURES-ORDERABLE NO CHARGE Final Result [facility] documented in this encounter Visit Diagnoses Diagnosis Primary hypertension- Primary Unspecified essential hypertension Sinus tachycardia Other specified cardiac dysrhythmias Adrenal adenoma, unspecified laterality documented in this encounter Additional Health Concerns Assessment Noted Time PHQ-9 Depression Total Score: 22 07/29/ 020 3:46 PM STAFFING 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 documented as of this encounter Care Teams Tablet Making Machine Operator Helper Relationship Specialty Start Date End Date Keyonna Armstrong APNP [address] [place] [address] PCP - General NURSE PRACTITIONER 05/06/18 documented as of this encounter
--- OUTSIDE RECORDS SUMMARY | 2024-07-10 22:57 | XMS_ITS | Encounter Summary ---
Author Organization [facility] Address [address] [place] [address]. [place], [place] [address] [place] [address] Care Team Providers Care Rigger Apprentice Name Role Phone Keoynna Armstrong Primary Care Provider [phone] Reason for Referral * Consultation (Routine) - Authorized Specialty Diagnoses / Procedures Referred By Contac t Referred To Contact CARDIOLOGY / Cardiology Diagnoses Sinus tachycardia Procedures OFFICE/OUTPATIENT NEW LOW MDM 30-44 MINUTES OFFICE/OUTPT VISIT,NEW,LEVL IV OFFICE/OUTPT VISIT,NEW,LEVL V OFFICE/OUTPT VISIT,EST,LEVL III OFFICE/OUTPT VISIT,EST,LEVL IV OFFICE/OUTPT VISIT,EST,LEVL V Keyonna Armstrong APNP [address] [place] [address] Phone: tel: fax: [address] [address] Phone: tel: fax: Referral ID Status Reason Start Date Expiration Date Visits Requested Visits Authorized [id number] Authorized Specialty Services 03/27/2024 04/28/2025 99 99 Reason for Visit * Reason Onset Date Comments Lab Results 03/27/2024 Encounter Details Date Type Department Care Team (Late st Contact Info) Description 03/27/2024 Telephone [facility] Family & Internal Medicine [facility] [address] [place] [address] Keyonna Armstrong Bridgette, YOBANI [address] [place] [address] Lab Results Social History Tobacco Use Types [...] CDT Gender Identity Female 07/17/2022 10:27 AM ANTITANK ASSAULT GUNNER Sexual Orientation Straight 07/17/2022 10 :27 AM ANTITANK ASSAULT GUNNER documented as of this encounter Progress Notes * Flora Blackwell MA - 03/27/2024 2:08 PM CDT Contacted patient and informed that I placed the referral for Praire and she will get a call to schedule. Informed no recent labs and she remembered they were from her Instrument And Control Technician and will call them. * Paulette Ward - 03/27/2024 1:30 PM CDT Pt is asking about results of recent labs. She also would like a different Photographic Enlarger Operator. She is nothaving any luck with [facility]. She has not ever been seen yet. She would like to see someone from [facility]. documented in this encounter Plan of Treatment Upcoming Encounters Date Type Department Care Team (Late st Contact Info) Description 07/25/2024 10:00 AM ANTITANK ASSAULT GUNNER Office Visit [facility] Family & Internal Medicine - [place] [address] [place] [address] Keyonna Armstrong APNP [address] [place] [address] 07/31/2024 10:15 AM ANTITANK ASSAULT GUNNER Office Visit [facility] [address] [place] [address] Pepe Mitchell MD Three [facility]. [facility] [address] [place], [place] [id number] Scheduled Referrals Name Type Priority Associated Diagnoses Orde r Schedule Ambulatory referral to Cardiology, Adult ([facility]) Referral Routine Sinus tachycardia Ordered: 03/27/2024 documented as of this encounter Visit Diagnoses Diagnosis Sinus tachycardia- Primary Other specified cardiac dysrhythmias documented in this encounter Additional Health Concerns Assessment Noted Time PHQ-9 Depression Total Score: 22 020 3:46 PM ANTITANK ASSAULT GUNNER documented as of this encounter Care Teams Rigger Apprentice Relationship Specialty Start Date End Date Keyonna Armstrong APNP [facility] [place] [place] [address] PCP - General NURSE PRACTITIONER 05/06/18 documented as of this encounter
--- OUTSIDE RECORDS SUMMARY | 2024-07-10 22:57 | XMS_ITS | Encounter Summary ---
Author Organization [facility] Address [address] [place] [address]. [place] [address] Care Team Providers Care Cement Side Laster Name Role Phone Aracely Armstrong Primary Care Provider [phone] Reason for Referral * Sleep Lab (Routine) - Closed Specialty Diagnoses / Procedures Referred By Lee saunders Referred To Contact Diagnoses Obstructive sleep apnea Other fatigue Anxiety Primary insomnia Procedures Home Sleep Study - WatchPat ([id number]) Aracely Armstrong APNP [address] [place] [id number] Phone: tel: fax: Referral ID Status Reason Start Date Expiration Date Visits Re quested Visits Authorized [id number] Closed 10/04/2023 10/03/2024 1 1 Reason for Visit * Reason Comments Obstructive Sleep Apnea Fatigue Insomnia With Sleep Apnea Anxiety * Sleep Lab (Routine) - Closed Specialty Diagnoses / Procedures Referred By Lee saunders Referred To Contact Diagnoses Obstructive sleep apnea Other fatigue Anxiety Primary insomnia Procedures Home Sleep Study - WatchPat ([id number]) Aracely Armstrong APNP [address] [place] [address] Phone: tel: fax: Referral ID Status Reason Start Date Expiration Date Visits Re quested Visits Authorized [id number] Closed 10/04/2023 10/03/2024 1 1 Encounter Details Date Type Department Care Team (Latest Contact Info) Description 01/04/2024 11:30 AM CDT - 01/04/2024 11:59 PM CDT Hospital Encounter [facility] Sleep Lab [address] [place] [address] Aracely Armstrong APNP [address] [place] [address] Obstructive Sleep Apnea ; Fatigue; Insomnia With Sleep Apnea; Anxiety Discharge Disposition: Home or Self Care (Routine Discharge) Social History Tobacco Use Types Packs/Day Years [...] CDT Gender Identity Female 07/17/2022 10:27 AM NIGHT TIME BABYSITTER Sexual Orientation Straight 07/17/2022 10 :27 AM NIGHT TIME BABYSITTER documented as of this encounter Discharge Instructions * Patient Instructions* SANDRA Montelongo - 01/04/2024 11:30 AM CDT WRITTEN AND VERBAL IHSS INSTRUCTIONS GIVEN TO PATIENT documented in this encounter Medications at Time of Discharge Cranberry-Vitamin C-Probiotic (AZO CRANBERRY) 250-30 MG Tab dimenhyDRINATE (DRAMAMINE) 50 MG Tab tablet Take 1 tablet (50 mg total) by mouth every 4 (four) hours as needed for Nausea. diphenhydrAMINE-A PAP (TYLENOL PM) 25-500 MG Tab tablet Take 1 tablet by mouth nightly at bedtime. estradiol (VIVELLE-DOT) 0.05 MG/24HR patch APPLY 1 PATCH TRANSDERMALLY TWICE A WEEK 09/20/2023 gabapentin (NEURONTIN) 100 MG capsule Take 1 capsule (100 mg total) by mouth 3 (three) times daily. 11/21/2022 LORazepam (ATIVAN) 1 MG tabletIndications :Anxiety Take 1 tablet (1 mg total) by mouth every 8 (eight) hours as needed for Anxiety (regularly takes 3 tabs daily). 60 tablet 12/01/2022 Magnesium 400 MG Cap Take 1 capsule by mouth 2 (two) times a day. Multiple Vitamin (MULTI-VITAMIN) tablet Take 1 tablet by mouth daily. progesterone (PROMETRIUM) 200 MG capsule TAKE 1 CAPSULE BY MOUTH EVERY DAY IN THE EVENING 08/25/2023 vitamin D3 (CHOLECALCIFEROL) 25 mcg tablet Take 1 tablet (25 mcg total) by mouth daily. amLODIPine (NORVASC) 5 MG tabletIndications :Primary hypertension Take 1 tablet (5 mg total) by mouth daily. 90 tablet 12/19/2023 02/27/20 24 Biotin 5000 MCG Cap 02/27/20 24 buPROPion SR (ZYBAN) 150 MG 12 hr tabletIndications :Recurrent major depressive disorder, in partial remission (CMS/HCC) TAKE 1 TABLET BY MOUTH TWICE A DAY 60 tablet 1 06/08/2023 02/27/20 24 hydroCHLOROthiazi de (HYDRODIURIL) 25 MG tabletIndications :Essential hypertension TAKE 1 TABLET BY MOUTH EVERY DAY Patient must be seen for further refills 30 tablet 02/23/2023 01/15/20 24 hydrOXYzine (ATARAX) 25 MG tablet Take 1 tablet (25 mg total) by mouth 2 (two) times daily as needed. 12/30/2023 02/28/20 24 ibuprofen (MOTRIN) 800 MG tabletIndications :Right ovarian cyst take 1 tablet by mouth three times a day as needed 60 tablet 1 12/18/2023 01/30/20 24 lisinopril (PRINIVIL) 40 MG tabletIndications :Essential hypertension take 1 tablet by mouth every day 90 tablet 1 12/19/2023 02/27/20 24 metFORMIN (GLUCOPHAGE) 500 MG tabletIndications :DM (diabetes mellitus) (CMS/HCC HHS/HCC) TAKE 1 TABLET BY MOUTH EVERY MORNING AND 2 TABLETS AT BEDTIME 270 tablet 1 09/07/2023 02/27/20 24 metoprolol tartrate (LOPRESSOR) 100 MG tabletIndications :Primary hypertension,Sinu s tachycardia Take 1 tablet (100 mg total) by mouth 2 (two) times daily. 60 tablet 5 11/23/2023 04/29/20 24 mirtazapine (REMERON) 15 MG tabletIndications :Primary insomnia take 1 tablet by mouth everyday at bedtime 90 tablet 1 12/19/2023 02/27/20 24 Misc Natural Products (ELDERBERRY/VITAM IN C/ZINC) Chew Tab 02/27/20 24 MOUNJARO 10 MG/0.5ML injection INJECT 10 MG UNDER THE SKIN EVERY 7 DAYS 02/27/20 24 Multiple Vitamins-Minerals (HAIR SKIN NAILS OR) 02/27/20 24 Multiple Vitamins-Minerals (LIVER DETOX OR) 02/27/20 24 pantoprazole EC (PROTONIX) 20 MG tabletIndications :Gastroesophageal reflux disease Take 1 tablet (20 mg total) by mouth daily. 90 tablet 12/19/2023 02/26/20 24 TURMERIC CURCUMIN OR 02/27/20 24 venlafaxine XR (EFFEXOR-XR) 75 MG 24 hr capsuleIndication s:Depression TAKE 1 CAPSULE BY MOUTH EVERY MORNING AND 2 CAPSULES EVERY EVENING 270 capsule 12/19/2023 02/27/20 24 zolpidem CR (AMBIEN CR) 12.5 MG tablet Take 1 tablet (12.5 mg total) by mouth nightly as needed. 11/15/2023 02/27/20 24 documented as of this encounter Progress Notes * Deondre Wheat MD - 01/04/2024 11:30 AM CDTEncounter addended by: Deondre Wheat MD on: 01/09/2024 2:02 PM Actions taken: Pend clinical note, Clinical Note Signed documented in this encounter Procedure Notes * Deondre Wheat MD - 01/04/2024 11:30 AM CDTAssociated Order(s): HOME SLEEP STUDY - WATCHPAT Patient Information First Name: VERONICA Last Name: TONJA ID: [id number] Date: 1970 Age: 53 Gender: Female BMI: 43.3 (W=260 lb, H=5' 5 Sleep Study Information Study Date: 01/04/2024 Referring Physician Information First Name: Last Name: ARACELY ARMSTRONG 5.3.82.3 / 4.2.1111 / 82 S/H/A Version: WATCHPAT HOME SLEEP APNEA TEST REPORT SUMMARY DATA SLEEP STUDY/ARCHITECTURE: This patient was studied using a WatchPAT home sleep study device, The evaluation was initiated on 01/04/2024 at 8:31:24 PM and was stopped at 6:36:14 AM. The total recording time was 10 hrs, 4 min with total sleep evaluation of 8 hrs, 31 min. ANALYSIS: (pAHI = PAT Apnea-Hypopnea Index, pRDI = PAT Respiratory Disturbance Index) Total pAHI 4%: 7.8 Total pRDI: 9.8 Average Sleep Oxygen Saturation: 92 Minimum Sleep Oxygen Saturation: 85 Mean Heart Rate During Sleep: 100 Afib Total Duration: Not detected Afib Longest Duration: Not detected (Afib events < 60 seconds may be artifact) SUMMARY/DIAGNOSIS 1.) Mild Obstructive Sleep Apnea. 2.) Tachycardia was noted during this study. RECOMMENDATIONS [place] treatment option should be discussed with the [...] that may potentially exacerbate snoring and other sleep-related issues, such as HEARING DOG TRAINER depressants, especially at bedtime. Raw data reviewed and electronically signed by: Deondre Wheat on 01/09/2024 2:01:02 PM at 7:01:06PM, [facility] * Deondre Wheat MD - 01/04/2024 11:30 AM CDT Patient Information First Name: VERONICA Last Name: TONJA ID: [id number] Date: 1970 Age: 53 Gender: Female BMI: 43.3 (W=260 lb, H=5' 5 Sleep Study Information Study Date: 01/04/2024 Referring Physician Information First Name: Last Name: ARACELY ARMSTRONG 5.3.82.3 / 4.2.1111 / 82 S/H/A Version: WATCHPAT HOME SLEEP APNEA TEST REPORT SUMMARY DATA SLEEP STUDY/ARCHITECTURE: This patient was studied using a WatchPAT home sleep study device, The evaluation was initiated on 01/04/2024 at 8:31:24 PM and was stopped at 6:36:14 AM. The total recording time was 10 hrs, 4 min with total sleep evaluation of 8 hrs, 31 min. ANALYSIS: (pAHI = PAT Apnea-Hypopnea Index, pRDI = PAT Respiratory Disturbance Index) Total pAHI 4%: 7.8 Total pRDI: 9.8 Average Sleep Oxygen Saturation: 92 Minimum Sleep Oxygen Saturation: 85 Mean Heart Rate During Sleep: 100 Afib Total Duration: Not detected Afib Longest Duration: Not detected (Afib events < 60 seconds may be artifact) SUMMARY/DIAGNOSIS 1.) Mild Obstructive Sleep Apnea. 2.) Tachycardia was noted during this study. RECOMMENDATIONS [place] treatment option should be discussed with the [...] that may potentially exacerbate snoring and other sleep-related issues, such as HEARING DOG TRAINER depressants, especially at bedtime. Raw data reviewed and electronically signed by: Deondre Wheat on 01/09/2024 2:01:02 PM at 7:01:06PM, [facility] documented in this encounter Plan of Treatment Upcoming Encounters Date Type Department Care Team (Late st Contact Info) Description 07/25/2024 10:00 AM NIGHT TIME BABYSITTER Office Visit [facility] Group Family & Internal Medicine - [place] [address] [place] [address] Ilya Aracely HYOBANI [address] [place] [address] 07/31/2024 10:15 AM NIGHT TIME BABYSITTER Office Visit [facility] THREE [facility], [place] [address] [place] [address] Pepe Mitchell MD Three [facility] [place] [address] [place], [place] [id number] documented as of this encounter Procedures Procedure Name Priority Date/Time Associated Diagnosis Comments HOME SLEEP STUDY - WATCHPAT Routine 01/04/2024 11:30 AM CDT Obstructive sleep apnea Other fatigue Anxiety Primary insomnia documented in this encounter Results * Home Sleep Study - WatchPat ([id number]) (01/04/2024 11:30 AM CDT) Narrative [facility] - 01/04/2024 11:30 AM CDT Deondre Wheat MD ? 01/09/2024 ??2:02 PM Patient Information First Name: VERONICA Last Name: TONJA ID: [id number] Date: 1970 Age: 53 Gender: Female BMI: 43.3 (W=260 lb, H=5' 5 Sleep Study Information Study Date: 01/04/2024 Referring Physician Information First Name: Last Name: ARACELY ILYA 5.3.82.3 / 4.2.1111 / 82 S/H/A Version: WATCHPAT HOME SLEEP APNEA TEST REPORT SUMMARY DATA SLEEP STUDY/ARCHITECTURE: This patient was studied using a WatchPAT home sleep study device, The evaluation was initiated on 01/04/2024 at 8:31:24 PM and was stopped at 6:36:14 AM. The total recording time was 10 hrs, 4 min with total sleep evaluation of 8 hrs, 31 min. ANALYSIS: (pAHI = PAT Apnea-Hypopnea Index, pRDI = PAT Respiratory Disturbance Index) Total pAHI 4%: ??7.8 Total pRDI: ??9.8 Average Sleep Oxygen Saturation: ?? 92 Minimum Sleep Oxygen Saturation: ??85 Mean Heart Rate During Sleep: ??100 Afib Total Duration: ??Not detected Afib Longest Duration: ??Not detected (Afib events < 60 seconds may be artifact) SUMMARY/DIAGNOSIS 1.) Mild Obstructive Sleep Apnea. 2.) Tachycardia was noted during this study. RECOMMENDATIONS [place] treatment option should be discussed with the [...] that may potentially exacerbate snoring and other sleep-related issues, such as HEARING DOG TRAINER depressants, especially at bedtime. Raw data reviewed and electronically signed by: Deondre Wheat ??on 01/09/2024 2:01:02 PM at ??7:01:06PM, [facility] Aracely [facility] ORDERABLES Fin al Result Performing Organization Address City/State/[facility] Co de Phone Number [facility] [address] [place] [address], documented in this encounter Visit Diagnoses Diagnosis Obstructive sleep apnea Obstructive sleep apnea (adult) (pediatric) Other fatigue Anxiety Anxiety state, unspecified Primary insomnia Persistent disorder of initiating or maintaining sleep documented in this encounter Additional Health Concerns Assessment Noted Time PHQ-9 Depression Total Score: 22 020 3:46 PM NIGHT TIME BABYSITTER documented as of this encounter Care Teams Cement Side Laster Relationship Specialty Start Date End Date Aracely Armstrong APNP [address] [place] [address] PCP - General NURSE PRACTITIONER 05/06/18 documented as of this encounter
--- OUTSIDE RECORDS SUMMARY | 2024-07-10 22:57 | XMS_ITS | Encounter Summary ---
Author Organization [facility] Address [address] [place] [address]. [place], [place] [address] [place] [address] Care Team Providers Care Calender Runner Name Role Phone Keyonna Armstrong Primary Care Provider [phone] Reason for Visit * Reason Onset Date Comments Consult 12/18/2023 Encounter Details Date Type Department Care Team (Late st Contact Info) Description 12/18/2023 [place] [address] Susi Parikh, RMA Consult Social History Tobacco [...] CDT Gender Identity Female 07/17/2022 10:27 AM BRICK AND TILE MAKING MACHINE OPERATOR Sexual Orientation Straight 07/17/2022 10 :27 AM BRICK AND TILE MAKING MACHINE OPERATOR documented as of this encounter Progress Notes * TINO Knowles - 12/18/2023 8:44 AM CDT We have tried to contact patient by phone and by letter with no response. At this time we will makeno further attempts to contact patient and will return their care back to ordering. documented in this encounter Plan of Treatment Upcoming Encounters Date Type Department Care Team (Late st Contact Info) Description 07/25/2024 10:00 AM BRICK AND TILE MAKING MACHINE OPERATOR Office Visit [facility] Medical Group Family & Internal Medicine - [place] [address] [place] [address] Keyonna Armstrong APNP [address] [place] [address] 07/31/2024 10:15 AM BRICK AND TILE MAKING MACHINE OPERATOR Office Visit [facility] THREE [facility] [address] [place] [address] Pepe Mitchell MD Three [facility]. [facility] [address] [place] [address] documented as of this encounter Visit Diagnoses Not on filedocumented in this encounter Additional Health Concerns Assessment Noted Time PHQ-9 Depression Total Score: 22 020 3:46 PM BRICK AND TILE MAKING MACHINE OPERATOR documented as of this encounter Care Teams Calender Runner Relationship Specialty Start Date End Date eKyonna Armstrong APNP [address] [place] [address] PCP - General NURSE PRACTITIONER 05/06/18 documented as of this encounter
--- OUTSIDE RECORDS SUMMARY | 2024-07-10 22:58 | XMS_ITS | Encounter Summary ---
Author Organization [facility] Address [address] [place] [address]. [place], [place] [address] [place] [address] Care Team Providers Care Concrete Mixing Truck Driver Name Role Phone Keyonna Armstrong Primary Care Provider [phone] Encounter Details Date Type Department Care Team (Latest Contact Info) Description 10/23/2022 Travel Social History Tobacco Use Types Packs/Day [...] on file 05/24 PHQ-2 Answer Date Recorded PHQ-2 Score 6 07/29/2019 Comments No Sex and Gender Information Value Date Recorded Sex Assigned at Not on file Legal Sex Female 5:47 PM CDT Gender Identity Female 07/17/2022 10:27 AM ASSISTANT PLANT MANAGER Sexual Orientation Straight 07/17/2022 10 :27 AM ASSISTANT PLANT MANAGER COVID-19 Exposure Response Date Recorded In the last 10 days, have yo u been in contact with someone who was confirmed or suspected to have Coronavirus/COVID-19? Unable to assess 10/23/2022 6:39 AM CDT documented as of this encounter Plan of Treatment Upcoming Encounters Date Type Department Care Team (Late st Contact Info) Description 07/25/2024 10:00 AM ASSISTANT PLANT MANAGER Office Visit [facility] Family & Internal Medicine - [place] [address] [place] [address] Keyonna Armstrong APNP [address] [place] [address] 07/31/2024 10:15 AM ASSISTANT PLANT MANAGER Office Visit [facility] THREE [facility] [address] [place] [address] Pepe Mitchell MD Three [facility]. [facility] [address] [place] [address] documented as of this encounter Visit Diagnoses Not on filedocumented in this encounter Additional Health Concerns Assessment Noted Time PHQ-9 Depression Total Score: 22 020 3:46 PM ASSISTANT PLANT MANAGER documented as of this encounter Care Teams Concrete Mixing Truck Driver Relationship Specialty Start Date End Date Keyonna Armstrong APNP [address] [place] [address] PCP - General NURSE PRACTITIONER 05/06/18 documented as of this encounter
--- OUTSIDE RECORDS SUMMARY | 2024-07-10 22:58 | XMS_ITS | Encounter Summary ---
Author Organization [facility] Address [address] [place] [address]. [place] [id number] [place] [address] Care Team Providers Care Conservation Policy Analyst Name Role Phone Keyonna Armstrong Primary Care Provider [phone] Reason for Visit * Reason Onset Date Comments Other 10/20/2022 Encounter Details Date Type Department Care Team (Late st Contact Info) Description 10/20/2022 Telephone [facility] Medical Group Family & Internal Medicine [facility] [address] [place] [address] Keyonna Armstrong APNP [address] [place] [address] Other Social History Tobacco Use Types Packs/Day Years [...] CDT Gender Identity Female 07/17/2022 10:27 AM CALENDER SUPERVISOR Sexual Orientation Straight 07/17/2022 10 :27 AM CALENDER SUPERVISOR COVID-19 Exposure Response Date Recorded In the last 10 days, have yo u been in contact with someone who was confirmed or suspected to have Coronavirus/COVID-19? No / Unsure 09/29/2022 7:45 AM CALENDER SUPERVISOR documented as of this encounter Progress Notes * Susi Lazar MA - 10/20/2022 3:26 PM CDT Patient is scheduled for VV on 10/23/2022 at 1:20PM * YOBANI Cruz - 10/20/2022 2:58 PM CDT I do not have samples of either of these meds. She can follow up and we can discuss a new med for sleep * Paulette Ward - 10/20/2022 12:10 PM CDT She is having issues with the ambien, only getting 4 hours a sleep. Wants to know if she can try dayzigo, quiziv. She wants to know if she can try a sample or something of one of these so she can getoff the ambien. documented in this encounter Plan of Treatment Upcoming Encounters Date Type Department Care Team (Late st Contact Info) Description 07/25/2024 10:00 AM CALENDER SUPERVISOR Office Visit [facility] Medical Group Family & Internal Medicine - [place] [address] [place] [address] Keyonna Armstrong APNP [address] [place] [address] 07/31/2024 10:15 AM CALENDER SUPERVISOR Office Visit [facility] THREE [facility], [place] [address] [place] [address] Pepe Mitchell MD [place] [id number] [place] [address] documented as of this encounter Visit Diagnoses Not on filedocumented in this encounter Additional Health Concerns Assessment Noted Time PHQ-9 Depression Total Score: 22 020 3:46 PM CALENDER SUPERVISOR documented as of this encounter Care Teams Conservation Policy Analyst Relationship Specialty Start Date End Date Keyonna rAmstrong APNP [address] [place] [address] PCP - General NURSE PRACTITIONER 05/06/18 documented as of this encounter
--- OUTSIDE RECORDS SUMMARY | 2024-07-10 22:58 | XMS_ITS | Encounter Summary ---
Author Organization [facility] Address [address] [place] [address]. [place], [place] [address] [place] [address] Care Team Providers Care Teacher Of The Emotionally Disturbed Name Role Phone Keyonna Armstrong Primary Care Provider [phone] Encounter Details Date Type Department Care Team (Latest Contact Info) Description 10/04/2023 Travel Social History Tobacco Use Types Packs/Day [...] CDT Gender Identity Female 07/17/2022 10:27 AM MANAGER CLINICAL APPLICATIONS Sexual Orientation Straight 07/17/2022 10 :27 AM MANAGER CLINICAL APPLICATIONS documented as of this encounter Plan of Treatment Upcoming Encounters Date Type Department Care Team (Late st Contact Info) Description 07/25/2024 10:00 AM MANAGER CLINICAL APPLICATIONS Office Visit [facility] Medical Group Family & Internal Medicine [address] [address] Keyonna Armstrong APNP [address] [place] [address] 07/31/2024 10:15 AM MANAGER CLINICAL APPLICATIONS Office Visit [facility] THREE [facility], [facility] [address] [place], [place] [phone] Pepe Mitchell MD Three [facility]. [facility] [address] [place], [place] [id number] documented as of this encounter Visit Diagnoses Not on filedocumented in this encounter Additional Health Concerns Assessment Noted Time PHQ-9 Depression Total Score: 22 020 3:46 PM MANAGER CLINICAL APPLICATIONS documented as of this encounter Care Teams Teacher Of The Emotionally Disturbed Relationship Specialty Start Date End Date Keyonna Armstrong APNP [address] [place] [address] PCP - General NURSE PRACTITIONER 05/06/18 documented as of this encounter
--- OUTSIDE RECORDS SUMMARY | 2024-07-10 22:58 | XMS_ITS | Encounter Summary ---
Author Organization [facility] Address [address] [place] [address]. [place], [place] [address] [place] [address] Care Team Providers Care Collections And Archives Director Name Role Phone Keyonna Armstrong Primary Care Provider [phone] Reason for Visit * Reason Comments Lab (SCAN) CT (SCAN) Image (SCAN) ECG (SCAN) Encounter Details Date Type Department Care Team (Late st Contact Info) Description 06/12/2023 Scan [facility] Scanned, Doc Med Group Lab (SCAN); CT (SCAN); Image (SCAN); ECG (SCAN) Social History Tobacco Use Types Packs/Day Years [...] CDT Gender Identity Female 07/17/2022 10:27 AM FLOOR PERSON Sexual Orientation Straight 07/17/2022 10 :27 AM FLOOR PERSON documented as of this encounter Plan of Treatment Upcoming Encounters Date Type Department Care Team (Late st Contact Info) Description 07/25/2024 10:00 AM FLOOR PERSON Office Visit [facility] Medical Group Family & Internal Medicine - [place] [address] [place] [address] Keyonna Armstrong APNP [address] [place] [address] 07/31/2024 10:15 AM FLOOR PERSON Office Visit [facility] THREE [facility], [place] [address] [place], [place] [address] Pepe Mitchell MD Three [facility]. [facility] [address] [place] [address] documented as of this encounter Procedures Procedure Name Priority Date/Time Associated Diagnosis Comments CT GENERIC 06/12/2023 CT GENERIC 06/12/2023 ECG GENERIC (SCAN ORDER) 06/12/2023 ECG GENERIC (SCAN ORDER) 06/12/2023 OUTSIDE PT/INR (SCAN ORDER) 06/12/2023 OUTSIDE LAB (SCAN ORDER) 06/12/2023 OUTSIDE LAB (SCAN ORDER) 06/12/2023 OUTSIDE LAB (SCAN ORDER) 06/12/2023 OUTSIDE LAB (SCAN ORDER) 06/12/2023 OUTSIDE LAB (SCAN ORDER) 06/12/2023 OUTSIDE LAB (SCAN ORDER) 06/12/2023 OUTSIDE LAB (SCAN ORDER) 06/12/2023 OUTSIDE LAB (SCAN ORDER) 06/12/2023 OUTSIDE LAB (SCAN ORDER) 06/12/2023 IMAGE GENERIC 06/12/2023 IMAGE GENERIC 06/12/2023 documented in this encounter Results * OUTSIDE LAB (SCAN ORDER) (06/12/2023) 06/12/2023 [facility] Scanned SCANNING Final Resu lt * OUTSIDE LAB (SCAN ORDER) (06/12/2023) 06/12/2023 [facility] Scanned SCANNING Final Resu lt * OUTSIDE LAB (SCAN ORDER) (06/12/2023) 06/12/2023 [facility] Scanned SCANNING Final Resu lt * OUTSIDE PT/INR (SCAN ORDER) (06/12/2023) 06/12/2023 [facility] Scanned SCANNING Final Resu lt * OUTSIDE LAB (SCAN) (06/12/2023) 06/12/2023 [facility] Scanned SCANNING Final Resu lt * OUTSIDE LAB (SCAN) (06/12/2023) 06/12/2023 [facility] Scanned SCANNING Final Resu lt * OUTSIDE LAB (SCAN) (06/12/2023) 06/12/2023 [facility] Scanned SCANNING Final Resu lt * OUTSIDE LAB (SCAN) (06/12/2023) 06/12/2023 [facility] Scanned SCANNING Final Resu lt * OUTSIDE LAB (SCAN) (06/12/2023) 06/12/2023 [facility] Scanned SCANNING Final Resu lt * OUTSIDE LAB (SCAN) (06/12/2023) 06/12/2023 [facility] Scanned SCANNING Final Resu lt * IMAGE GENERIC (06/12/2023) Anatomical Region Laterality Modality Other 06/12/2023 [facility] Scanned SCANNING Final Resu lt * CT GENERIC (06/12/2023) Anatomical Region Laterality Modality Other 06/12/2023 [facility] Scanned SCANNING Final Resu lt * CT GENERIC (06/12/2023) Anatomical Region Laterality Modality Other 06/12/2023 [facility] Scanned SCANNING Final Resu lt * IMAGE GENERIC (06/12/2023) Anatomical Region Laterality Modality Other 06/12/2023 Result [facility] us [facility] Scanned SCANNING Final Resu lt * ECG GENERIC (SCAN ORDER) (06/12/2023) 06/12/2023 us [facility] Scanned SCANNING Final Resu lt * ECG GENERIC (SCAN ORDER) (06/12/2023) 06/12/2023 [facility] Scanned SCANNING Final Resu lt documented in this encounter Visit Diagnoses Not on filedocumented in this encounter Additional Health Concerns Assessment Noted Time PHQ-9 Depression Total Score: 22 07/29/2 020 3:46 PM FLOOR PERSON documented as of this encounter Care Teams Collections And Archives Director Relationship Specialty Start Date End Date Keyonna Armstrong APNP [address] [place] [address] PCP - General NURSE PRACTITIONER 05/06/18 documented as of this encounter
--- OUTSIDE RECORDS SUMMARY | 2024-07-10 22:58 | XMS_ITS | Encounter Summary ---
Author Organization [facility] Address [address] [place] [address]. [place] [id number] [place], [place] [id number] Care Team Providers Care Market Research Senior Project Manager Name Role Phone Aracely Armstrong Primary Care Provider [phone] Reason for Visit * Reason Onset Date Comments Medication Request 11/03/2022 Encounter Details Date Type Department Care Team (Late st Contact Info) Description 11/03/2022 Telephone [facility] Medical Group Family & Internal Medicine [facility] [address] [place] [address] Aracely Armstrong APNP [address] [place] [address] Medication Request Social History Tobacco Use Types Packs/Day [...] CDT Gender Identity Female 07/17/2022 10:27 AM AIRPLANE CAPTAIN Sexual Orientation Straight 07/17/2022 10 :27 AM AIRPLANE CAPTAIN COVID-19 Exposure Response Date Recorded In the last 10 days, have ru u been in contact with someone who was confirmed or suspected to have Coronavirus/COVID-19? Unable to assess 10/23/2022 6:39 AM CDT documented as of this encounter Progress Notes * YOBANI Cruz - 11/07/2022 2:12 PM CDTAddended by: ARACELY ARMSTRONG on: 11/07/2022 02:12 PM Modules accepted: Orders * Nenita Young MA - 11/07/2022 11:25 AM CDT Ok to change back ? * Rocio Calderón - 11/07/2022 11:12 AM CDT Refill request: Veronica Evangelista a patient of YOBANI Cruz requests a refill of Zolpidem XR The patient would like this sent to the following pharmacy: [facility]/pharmacy #[id number] [address] The next office visit: Next visit with ARACELY ARMSTRONG in FAMILY PRACTICE is on: No match found The last office visit: Last visit with ARACELY ARMSTRONG in FAMILY PRACTICE was on: 07/20/2022 in [facility] Additional Information: Pt. States her insurance has now covered the medication so the pharmacy is requesting a new RX * Flora Blackwell MA - 11/06/2022 4:38 PM CDT Patient informed tn * YOBANI Cruz - 11/06/2022 12:56 PM CDTAddended by: ARACELY ARMSTRONG on: 11/06/2022 12:56 PM Modules accepted: Orders * YOBANI Cruz - 11/06/2022 12:55 PM CDT I sent over Belsomra--same class as zolpidem. Use only as needed. I'm not sure of the out of pocketcost * Zita Cook MA - 11/06/2022 12:49 PM CDT Is there something else that can be given in place of Zolpidem? * YOBANI Cruz - 11/05/2022 5:07 PM CDT I'm not for certain her insurance will cover any name brand meds (zolpidem CR) was not even name brand and was not covered * Rocio Calderón - 11/03/2022 12:15 PM CDT Pt. Called and states that her insurance will not cover zolpidem CR (AMBIEN CR) 12.5 MG tablet extended release Pt. Requesting to see what she can take the will be covered. Please call pt. documented in this encounter Plan of Treatment Upcoming Encounters Date Type Department Care Team (Late st Contact Info) Description 07/25/2024 10:00 AM AIRPLANE CAPTAIN Office Visit [facility] Medical Group Family & Internal Medicine - [address] [address] Aracely Armstrong APNP [address] [place] [address] 07/31/2024 10:15 AM AIRPLANE CAPTAIN Office Visit [facility] THREE [facility], [facility] [address] [place] [address] Pepe Mitchell MD Three [facility]. 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
--- OUTSIDE RECORDS SUMMARY | 2024-07-10 22:58 | XMS_ITS | Encounter Summary ---
Author Organization [facility] Address [address] [place] [address]. [place] [id number] [place] [address] Care Team Providers Care Shaper Setter Name Role Phone Keyonna Armstrong Primary Care Provider [phone] Reason for Visit * Reason Onset Date Comments Letter 04/10/2022 Encounter Details Date Type Department Care Team (Late st Contact Info) Description 04/10/2022 Telephone [facility] Medical Group Family & Internal Medicine [facility] [address] [place] [address] Keyonna Armstrong APNP [address] [place] [address] Letter Social History Tobacco Use Types Packs/Day Years [...] CDT Gender Identity Female 07/17/2022 10:27 AM ROLL FORMING MACHINE OPERATOR Sexual Orientation Straight 07/17/2022 10 :27 AM ROLL FORMING MACHINE OPERATOR documented as of this encounter Progress Notes * Keyla Stallings MA - 04/11/2022 2:52 PM CDT Letter drafted. Pt informed and will order picker letter. BB 04/11/2022 * YOBANI Cruz - 04/11/2022 2:40 PM CDT Can we draft a letter stating due to pt's chronic health conditions, she is unable to walk long distances therefore will require ambulation assistance in the form of a wheelchair if possible. * Indy Kang - 04/10/2022 9:33 AM CDT Patient requesting letter for airport to allow her to have a wheelchair because she can't walk the 10 miles to the gate. Callback: [phone] documented in this encounter Plan of Treatment Upcoming Encounters Date Type Department Care Team (Late st Contact Info) Description 07/25/2024 10:00 AM ROLL FORMING MACHINE OPERATOR Office Visit [facility] Medical Group Family & Internal Medicine - [place] [address] [place] [address] Keyonna Armstrong APNP [address] [place] [address] 07/31/2024 10:15 AM ROLL FORMING MACHINE OPERATOR Office Visit [facility], [place] [address] [place], [place] [phone] Pepe Mitchell MD Three [facility]. [place] [address] [place] [address] documented as of this encounter Visit Diagnoses Not on filedocumented in this encounter Additional Health Concerns Assessment Noted Time PHQ-9 Depression Total Score: 22 020 3:46 PM ROLL FORMING MACHINE OPERATOR documented as of this encounter Care Teams Shaper Setter Relationship Specialty Start Date End Date Keyonna Armstrong APNP [address] [place] [address] PCP - General NURSE PRACTITIONER 05/06/18 documented as of this encounter
--- OUTSIDE RECORDS SUMMARY | 2024-07-10 22:58 | XMS_ITS | Encounter Summary ---
Author Organization [facility] Address [address] [place] [address]. [place] [id number] [place] [address] Care Team Providers Care Dairy Grazer Name Role Phone Keyonna Armstrong Primary Care Provider [phone] Reason for Visit * Reason Onset Date Comments Question 08/30/2023 Encounter Details Date Type Department Care Team (Late st Contact Info) Description 08/30/2023 Telephone [facility] Medical Group Family & Internal Medicine [facility] [address] [place] [address] Keyonna Armstrong APNP [address] [place] [address] Question Social History Tobacco Use Types Packs/Day [...] CDT Gender Identity Female 07/17/2022 10:27 AM DIRECTOR TECHNICAL Sexual Orientation Straight 07/17/2022 10 :27 AM DIRECTOR TECHNICAL documented as of this encounter Progress Notes * Claritza Velázquez MA - 09/17/2023 4:16 PM CST Pt needs new sleep study. Appt scheduled for VV 10/03. CTOR TECHNICAL * Rose Young MA - 09/17/2023 3:24 PM CST Pt's cpap was recalled a few years ago. She was unaware. She needs new cpap and all supplies. CTOR TECHNICAL * Rose Young MA - 09/17/2023 2:41 PM CST Spoke with pt, she states new insurance will not allow her to use [employer] anymore so she will have touse [employer]. She is checking her machine to make sure it has not been recalled since she's had it before [facility] recalled a large number of their Cpaps, she will let the office know and we will go from there as far as what equipment she needs CTOR TECHNICAL * Maria Eugenia Blanco - 09/10/2023 4:11 PM CST LVM asking patient to return our call and advise if she is needing CPAP supplies from [facility] and if so, what supplies does she need to be ordered. CTOR TECHNICAL documented in this encounter Plan of Treatment Upcoming Encounters Date Type Department Care Team (Late st Contact Info) Description 07/25/2024 10:00 AM DIRECTOR TECHNICAL Office Visit [facility] Medical Group Family & Internal Medicine - [place] [address] [place] [address] Keyonna Armstrong APNP [address] [place] [address] 07/31/2024 10:15 AM DIRECTOR TECHNICAL Office Visit [facility] THREE [facility], [facility] [address] [place] [address] Pepe Mitchell MD Three [facility]. [place] [address] [place] [address] documented as of this encounter Visit Diagnoses Not on filedocumented in this encounter Additional Health Concerns Assessment Noted Time PHQ-9 Depression Total Score: 22 020 3:46 PM DIRECTOR TECHNICAL documented as of this encounter Care Teams Dairy Grazer Relationship Specialty Start Date End Date Keyonna Armstrong APNP [address] [place] [address] PCP - General NURSE PRACTITIONER 05/06/18 documented as of this encounter
--- OUTSIDE RECORDS SUMMARY | 2024-07-10 22:58 | XMS_ITS | Encounter Summary ---
Author Organization [facility] Address [address] [place] [address]. [place] [id number] [place], [place] [phone] Care Team Providers Care Fiberglass Boat Parts Finisher Name Role Phone Keyonna Armstrong Primary Care Provider [phone] Reason for Visit * Reason Onset Date Comments Pre-visit Gap Closure 12/12/2021 Encounter Details Date Type Department Care Team (Late st Contact Info) Description 12/12/2021 Telephone [facility] Medical Group Family & Internal Medicine [facility] [address] [place] [address] Keyonna Armstrong APNP [address] [place] [address] Pre-visit Gap Closure Social History Tobacco Use Types Packs/Day Years [...] CDT Gender Identity Female 07/17/2022 10:[address] SCAN SPECIAL PROCEDURES TECHNOLOGIST Sexual Orientation Straight 07/17/2022 10 :[address] SCAN SPECIAL PROCEDURES TECHNOLOGIST documented as of this encounter Progress Notes * Twyla Mcgill CMA - 12/12/2021 3:51 PM CDT Contacted patient for pre-visit gap closure. 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 My direct extension is [phone]. You can also reach me at: [phone] ([place]) OR [phone] ([place]) documented in this encounter Plan of Treatment Upcoming Encounters Date Type Department Care Team (Late st Contact Info) Description 07/25/2024 10:[address] SCAN SPECIAL PROCEDURES TECHNOLOGIST Office Visit [facility] Medical Group Family & Internal Medicine [facility] [address] [place] [address] Keyonna Armstrong APNP [address] [place] [address] 07/31/2024 10:[address] SCAN SPECIAL PROCEDURES TECHNOLOGIST Office Visit [facility] THREE [facility], [facility] [address] [place], [place] [address] Pepe Mitchell MD Three [facility]. [facility] [address] [place], [place] [address] documented as of this encounter Visit Diagnoses Not on filedocumented in this encounter Additional Health Concerns Assessment Noted Time PHQ-9 Depression Total Score: 22 020 3:[address] SCAN SPECIAL PROCEDURES TECHNOLOGIST documented as of this encounter Care Teams Fiberglass Boat Parts Finisher Relationship Specialty Start Date End Date Keyonna Armstrong APNP [address] [place] [address] PCP - General NURSE PRACTITIONER 05/06/18 documented as of this encounter
--- OUTSIDE RECORDS SUMMARY | 2024-07-10 22:58 | XMS_ITS | Encounter Summary ---
Author Organization [facility] Address [address] [place] [address]. [place], [place] [address] [place] [address] Care Team Providers Care Carton And Can Supply Supervisor Name Role Phone Keyonna Armstrong Primary Care Provider [phone] Encounter Details Date Type Department Care Team (Latest Contact Info) Description 12/11/2022 Travel Social History Tobacco Use Types Packs/Day [...] CDT Gender Identity Female 07/17/2022 10:27 AM CORONER TECHNICIAN Sexual Orientation Straight 07/17/2022 10 :27 AM CORONER TECHNICIAN COVID-19 Exposure Response Date Recorded In the last 10 days, have yo u been in contact with someone who was confirmed or suspected to have Coronavirus/COVID-19? Unable to assess 12/11/2022 6:37 AM CDT documented as of this encounter Plan of Treatment Upcoming Encounters Date Type Department Care Team (Late Contact Info) Description 07/25/2024 10:00 AM CORONER TECHNICIAN Office Visit [facility] Medical Group Family & Internal Medicine - [place] [address] [place] [address] Keyonna Armstrong APNP [address] [place] [address] 07/31/2024 10:15 AM CORONER TECHNICIAN Office Visit [facility] THREE [facility] [address] [place] [address] Pepe Mitchell MD Three [facility]. [facility] [address] [place] [address] documented as of this encounter Visit Diagnoses Not on filedocumented in this encounter Additional Health Concerns Assessment Noted Time PHQ-9 Depression Total Score: 22 020 3:46 PM CORONER TECHNICIAN documented as of this encounter Care Teams Carton And Can Supply Supervisor Relationship Specialty Start Date End Date Keyonna Armstrong APNP [address] [place] [address] PCP - General NURSE PRACTITIONER 05/06/18 documented as of this encounter
--- OUTSIDE RECORDS SUMMARY | 2024-07-10 22:58 | XMS_ITS | Encounter Summary ---
Author Organization [facility] Address [address] [place] [address]. [place], [place] [address] [place] [address] Care Team Providers Care Broiler Manager Name Role Phone Keyonna Armstrong Primary Care Provider [phone] Encounter Details Date Type Department Care Team (Latest Contact Info) Description 11/20/2022 Scan [facility] HEALTH INFO SRVCS Scanned, Doc [...] CDT Gender Identity Female 07/17/2022 10:27 AM ASBESTOS SURVEYOR Sexual Orientation Straight 07/17/2022 10 :27 AM ASBESTOS SURVEYOR COVID-19 Exposure Response Date Recorded In the last 10 days, have yo u been in contact with someone who was confirmed or suspected to have Coronavirus/COVID-19? Unable to assess 10/23/2022 6:39 AM CDT documented as of this encounter Plan of Treatment Upcoming Encounters Date Type Department Care Team (Late st Contact Info) Description 07/25/2024 10:00 AM ASBESTOS SURVEYOR Office Visit [facility] Family & Internal Medicine - [place] [address] [place] [address] Keyonna Armstrong APNP [address] [place] [address] 07/31/2024 10:15 AM ASBESTOS SURVEYOR Office Visit [facility], [facility] [address] [place] [address] Pepe Mitchell MD Three [facility]. [facility] [address] [place], [place] [id number] documented as of this encounter Visit Diagnoses Not on filedocumented in this encounter Additional Health Concerns Assessment Noted Time PHQ-9 Depression Total Score: 22 020 3:46 PM ASBESTOS SURVEYOR documented as of this encounter Care Teams Broiler Manager Relationship Specialty Start Date End Date Keyonna Armstrong APNP [address] [place] [address] PCP - General NURSE PRACTITIONER 05/06/18 documented as of this encounter
--- OUTSIDE RECORDS SUMMARY | 2024-07-10 22:58 | XMS_ITS | Encounter Summary ---
Author Organization [facility] Address [address] [place] [address]. [place] [id number] [place] [address] Care Team Providers Care Shoe Sticks Repairer Name Role Phone Keyonna Armstrong Primary Care Provider [phone] Reason for Visit * Reason Onset Date Comments Results 07/25/2022 Encounter Details Date Type Department Care Team (Late st Contact Info) Description 07/25/2022 Telephone [facility] Family & Internal Medicine [facility] [address] [place] [address] Keyonna Armstrong APNP [address] [place] [address] Results Social History Tobacco Use [...] CDT Gender Identity Female 07/17/2022 10:27 AM HYDROGRAPHIC SURVEYOR Sexual Orientation Straight 07/17/2022 10 :27 AM HYDROGRAPHIC SURVEYOR COVID-19 Exposure Response Date Recorded In the last 10 days, have yo u been in contact with someone who was confirmed or suspected to have Coronavirus/COVID-19? No / Unsure 07/20/2022 12:13 PM HYDROGRAPHIC SURVEYOR documented as of this encounter Progress Notes * Keyla Stallings MA - 07/26/2022 8:39 AM CST This ROUSTABOUT called [phone] Fax number for [employer] ([employer]) [facility]. [phone] Request sent to this fax number. C-pap machine pt uses [employer] as the supplier.[employer] number- [phone] This ROUSTABOUT spoke with ananya from [employer] she said have pt call [phone] hit 1 for supplies and theyshould be able to get her what she needs. Pt v/u to this. This ROUSTABOUT said any issues please give us a call. BB 07/26/2022 OGRAPHIC SURVEYOR OGRAPHIC SURVEYOR OGRAPHIC SURVEYOR OGRAPHIC SURVEYOR OGRAPHIC SURVEYOR OGRAPHIC SURVEYOR OGRAPHIC SURVEYOR OGRAPHIC SURVEYOR OGRAPHIC SURVEYOR OGRAPHIC SURVEYOR OGRAPHIC SURVEYOR OGRAPHIC SURVEYOR OGRAPHIC SURVEYOR * YOBANI Cruz - 07/25/2022 7:56 PM CST Can you reach out to Sury Rivas's office and obtain pt's most recent OV notes please. Also---can we find out her CPAP supplier and see how we go about getting her CPAP mask changed to nasal pillows? OGRAPHIC SURVEYOR documented in this encounter Plan of Treatment Upcoming Encounters Date Type Department Care Team (Late st Contact Info) Description 07/25/2024 10:00 AM HYDROGRAPHIC SURVEYOR Office Visit [facility] Medical [facility] Family & Internal Medicine - [address] [address] Keyonna Armstrong APNP [address] [place] [address] 07/31/2024 10:15 AM HYDROGRAPHIC SURVEYOR Office Visit [facility] THREE [facility], [facility] [address] [place] [address] Pepe Mitchell MD [facility]. [facility] [address] [place] [address] documented as of this encounter Visit Diagnoses Not on filedocumented in this encounter Additional Health Concerns Assessment Noted Time PHQ-9 Depression Total Score: 22 020 3:46 PM HYDROGRAPHIC SURVEYOR documented as of this encounter Care Teams Shoe Sticks Repairer Relationship Specialty Start Date End Date Keyonna Armstrong APNP [address] [place] [address] PCP - General NURSE PRACTITIONER 05/06/18 documented as of this encounter
--- OUTSIDE RECORDS SUMMARY | 2024-07-10 22:58 | XMS_ITS | Encounter Summary ---
Author Organization [facility] Address [address] [place] [address]. [place] [id number] [place] [address] Care Team Providers Care Field Operations Manager Name Role Phone Eden Armstrong Primary Care Provider [phone] Reason for Visit * Reason Onset Date Comments Question 12/01/2022 Encounter Details Date Type Department Care Team (Late st Contact Info) Description 12/01/2022 Telephone [facility] Family & Internal Medicine [facility] [address] [place] [address] Eden Armstrong APNP [address] [place] [address] Question Social History Tobacco Use [...] CDT Gender Identity Female 07/17/2022 10:27 AM AUTOMATED WEAVER Sexual Orientation Straight 07/17/2022 10 :27 AM AUTOMATED WEAVER COVID-19 Exposure Response Date Recorded In the last 10 days, have yo u been in contact with someone who was confirmed or suspected to have Coronavirus/COVID-19? Unable to assess 12/11/2022 6:37 AM CDT documented as of this encounter Progress Notes * Zita Cook MA - 12/04/2022 10:41 AM CDT Patient is agreeable with f/u visit with eden. Scheduled for Sunday at 11 - VV * YOBANI Cruz - 12/01/2022 10:17 AM CDT We have tried several different medications and they have either not been effective or not approvedper her insurance. She can follow up to discuss * Rocio Calderón - 12/01/2022 9:46 AM CDT Pt. States her zolpidem CR (AMBIEN CR) 12.5 MG tablet is not working so she is requesting to be puton anther medication. documented in this encounter Plan of Treatment Upcoming Encounters Date Type Department Care Team (Late st Contact Info) Description 07/25/2024 10:00 AM AUTOMATED WEAVER Office Visit [facility] Medical [facility] Family & Internal Medicine - [place] [address] [place] [address] Eden Armstrong APNP [address] [place] [address] 07/31/2024 10:15 AM AUTOMATED WEAVER Office Visit [facility] THREE [facility], [address] [address] Pepe Mitchell MD [facility] [address] [place] [address] documented as of this encounter Visit Diagnoses Not on filedocumented in this encounter Additional Health Concerns Assessment Noted Time PHQ-9 Depression Total Score: 22 07/29/ 020 3:46 PM AUTOMATED WEAVER documented as of this encounter Care Teams Field Operations Manager Relationship Specialty Start Date End Date Eden Armstrong APNP [address] [place] [address] PCP - General NURSE PRACTITIONER 05/06/18 documented as of this encounter
--- OUTSIDE RECORDS SUMMARY | 2024-07-10 22:58 | XMS_ITS | Encounter Summary ---
Author Organization [facility] Address [address] [place] [address]. [place], [place] [address] [place] [address] Care Team Providers Care Facilities Maintenance Manager Name Role Phone Keyonna Armstrong Primary Care Provider [phone] Encounter Details Date Type Department Care Team (Latest Contact Info) Description 02/08/2022 Scan HEALTH INFO SRVCS Scanned, Documents Social History Tobacco Use Types Packs/Day Years [...] CDT Gender Identity Female 07/17/2022 10:27 AM AIR CONDITIONING MECHANIC Sexual Orientation Straight 07/17/2022 10 :27 AM AIR CONDITIONING MECHANIC documented as of this encounter Plan of Treatment Upcoming Encounters Date Type Department Care Team ( Contact Info) Description 07/25/2024 10:00 AM AIR CONDITIONING MECHANIC Office Visit [facility] Group Family & Internal Medicine [address] [address] Keyonna Armstrong APNP [address] [place] [address] 07/31/2024 10:15 AM AIR CONDITIONING MECHANIC Office Visit [facility] THREE [facility], [facility] [address] [place] [address] Pepe Mitchell MD Three [facility]. [facility] [address] [place] [address] documented as of this encounter Visit Diagnoses Not on filedocumented in this encounter Additional Health Concerns Assessment Noted Time PHQ-9 Depression Total Score: 22 020 3:46 PM AIR CONDITIONING MECHANIC documented as of this encounter Care Teams Facilities Maintenance Manager Relationship Specialty Start Date End Date Keyonna Armstrong APNP [address] [place] [address] PCP - General NURSE PRACTITIONER 05/06/18 documented as of this encounter
--- OUTSIDE RECORDS SUMMARY | 2024-07-10 22:58 | XMS_ITS | Encounter Summary ---
Author Organization [facility] Address [address] [place] [address]. [place] [id number] [place] [address] Care Team Providers Care Offbearer Sewer Pipe Name Role Phone Keyonna Armstrong Primary Care Provider [phone] Reason for Visit * Reason Onset Date Comments Medication 03/08/2023 Encounter Details Date Type Department Care Team (Late st Contact Info) Description 03/08/2023 Telephone [facility] Family & Internal Medicine [facility] [address] [place] [address] Keyonna Armstrong APNP [address] [place] [address] Medication Social History Tobacco Use Types Packs/Day Years [...] CDT Gender Identity Female 07/17/2022 10:27 AM SPRINKLER INSTALLER Sexual Orientation Straight 07/17/2022 10 :27 AM SPRINKLER INSTALLER documented as of this encounter Progress Notes * YOBANI Cruz - 03/09/2023 3:47 PM CDT Meds sent over * Claritza Velázquez MA - 03/09/2023 1:05 PM CDT Called [facility] and confirmed she did not greens picker there. Needing sent to : [facility]/pharmacy #[id number] - [place], [place] - [address] AT [facility] * YOBANI Cruz - 03/08/2023 5:05 PM CDT Did we call her local pharmacy to verify that she never picked up? * Claritza Velázquez MA - 03/08/2023 4:41 PM CDT FYI: According to PDMP, this was just filled 03/06 in [place], but pt said she didn't greens picker d/t pharmacy closed early. I meant to pend this rx for you, but accidentally printed. Nenita Young witnessed this printed rx being destroyed. Could you send this rx to the pharmacy selected ([place], [place]) I called pt to confirm this is correct pharmacy. * Rocio Calderón - 03/08/2023 1:45 PM CDT Pt requests her rx for zolpidem CR (AMBIEN CR) 12.5 MG tablet be sent to [facility] in [place] documented in this encounter Plan of Treatment Upcoming Encounters Date Type Department Care Team (Late st Contact Info) Description 07/25/2024 10:00 AM SPRINKLER INSTALLER Office Visit [facility] Medical Group Family & Internal Medicine - [place] [address] [place] [address] Keyonna Armstrong APNP [address] [place] [address] 07/31/2024 10:15 AM SPRINKLER INSTALLER Office Visit [facility] THREE [facility], [facility] [address] [place] [address] Pepe Mitchell MD Three [facility]. [facility] [address] [place] [address] documented as of this encounter Visit Diagnoses Diagnosis Primary insomnia Persistent disorder of initiating or maintaining sleep documented in this encounter Additional Health Concerns Assessment Noted Time PHQ-9 Depression Total Score: 22 020 3:46 PM SPRINKLER INSTALLER documented as of this encounter Care Teams Offbearer Sewer Pipe Relationship Specialty Start Date End Date Keyonna Armstrong APNP [facility] [place] [address] PCP - General NURSE PRACTITIONER 05/06/18 documented as of this encounter
--- OUTSIDE RECORDS SUMMARY | 2024-07-10 22:58 | XMS_ITS | Encounter Summary ---
Author Organization [facility] Address [address] [place] [address]. [place], [place] [address] [place] [address] Care Team Providers Care Vacuum Cleaner Repair Person Name Role Phone Keyonna Armstrong Primary Care Provider [phone] Encounter Details Date Type Department Care Team (Latest Contact Info) Description 12/21/2022 Scan MG HEALTH INFO SRVCS Scanned, Doc [...] CDT Gender Identity Female 07/17/2022 10:27 AM LASER MACHINE OPERATOR Sexual Orientation Straight 07/17/2022 10 :27 AM LASER MACHINE OPERATOR COVID-19 Exposure Response Date Recorded In the last 10 days, have yo u been in contact with someone who was confirmed or suspected to have Coronavirus/COVID-19? Unable to assess 12/11/2022 6:37 AM CDT documented as of this encounter Plan of Treatment Upcoming Encounters Date Type Department Care Team (Late st Contact Info) Description 07/25/2024 10:00 AM LASER MACHINE OPERATOR Office Visit [facility] Medical Group Family & Internal Medicine - [place] [address] [place] [address] Keyonna Armstrong APNP [address] [place] [address] 07/31/2024 10:15 AM LASER MACHINE OPERATOR Office Visit [facility] THREE [facility], [facility] [address] [place], [place] [phone] Pepe Mitchell MD Three [facility]. [facility] [address] [place], [place] [address] documented as of this encounter Visit Diagnoses Not on filedocumented in this encounter Additional Health Concerns Assessment Noted Time PHQ-9 Depression Total Score: 22 020 3:46 PM LASER MACHINE OPERATOR documented as of this encounter Care Teams Vacuum Cleaner Repair Person Relationship Specialty Start Date End Date Keyonna Armstrong APNP [address] [place] [address] PCP - General NURSE PRACTITIONER 05/06/18 documented as of this encounter
--- OUTSIDE RECORDS SUMMARY | 2024-07-10 22:58 | XMS_ITS | Encounter Summary ---
Author Organization [facility] Address [address] [place] [address]. [place], [place] [address] [place] [address] Care Team Providers Care Unix Systems Administrator Name Role Phone Keyonna Armstrong Primary Care Provider [phone] Reason for Visit * Reason Comments Lab (SCAN) Encounter Details Date Type Department Care Team (Latest Contact Info) Description 06/12/2023 Scan HEALTH INFO SRVCS Scanned, Doc Med Group Lab (SCAN) Social History Tobacco Use Types Packs/Day [...] CDT Gender Identity Female 07/17/2022 10:27 AM SET UP TECHNICIAN Sexual Orientation Straight 07/17/2022 10 :27 AM SET UP TECHNICIAN documented as of this encounter Plan of Treatment Upcoming Encounters Date Type Department Care Team ( Contact Info) Description 07/25/2024 10:00 AM SET UP TECHNICIAN Office Visit [facility] Group Family & Internal Medicine [facility] [address] [place] [address] Keyonna Armstrong APNP [address] [place] [address] 07/31/2024 10:15 AM SET UP TECHNICIAN Office Visit [facility] THREE [facility] [place] [address] [place] [address] Pepe Mitchell MD Three [facility]. [place] [address] [place], [place] [address] documented as of this encounter Procedures Procedure Name Priority Date/Time Associated Diagnosis Comments OUTSIDE LAB COVID-19 (SCAN ORDER) Routine 06/12/2023 documented in this encounter Results * OUTSIDE LAB COVID-19 (06/12/2023) CORONAVIRUS SARS COV 2 PCR (RESP) NOT DETECTED NOT DETECTED [facility] 06/12/2023 us Doc Med Group Scanned SCANNING Final Resu lt [facility] documented in this encounter Visit Diagnoses Not on filedocumented in this encounter Additional Health Concerns Assessment Noted Time PHQ-9 Depression Total Score: 22 020 3:46 PM SET UP TECHNICIAN documented as of this encounter Care Teams Unix Systems Administrator Relationship Specialty Start Date End Date Keyonna Armstrong APNP [address] [place] [address] PCP - General NURSE PRACTITIONER 05/06/18 documented as of this encounter
--- OUTSIDE RECORDS SUMMARY | 2024-07-10 22:58 | XMS_ITS | Encounter Summary ---
Author Organization [facility] Address [address] [place] [address]. [place], [place] [address] [place] [address] Care Team Providers Care Assembly Supervisor Name Role Phone Keyonna Armstrong Primary Care Provider [phone] Encounter Details Date Type Department Care Team (Latest Contact Info) Description 10/13/2021 Scan HEALTH INFO SRVCS Scanned, Documents Social [...] CDT Gender Identity Female 07/17/2022 10:27 AM FLAT LOCK OPERATOR Sexual Orientation Straight 07/17/2022 10 :27 AM FLAT LOCK OPERATOR documented as of this encounter Plan of Treatment Upcoming Encounters Date Type Department Care Team ( st Contact Info) Description 07/25/2024 10:00 AM FLAT LOCK OPERATOR Office Visit [facility] Medical Group Family & Internal Medicine [address] [address] Keyonna Armstrong APNP [address] [place] [address] 07/31/2024 10:15 AM FLAT LOCK OPERATOR Office Visit [facility] THREE [facility], [facility] [address] [place] [address] Pepe Mitchell MD Three [facility]. [facility] [address] [place] [address] documented as of this encounter Visit Diagnoses Not on filedocumented in this encounter Additional Health Concerns Assessment Noted Time PHQ-9 Depression Total Score: 22 020 3:46 PM FLAT LOCK OPERATOR documented as of this encounter Care Teams Assembly Supervisor Relationship Specialty Start Date End Date Keyonna Armstrong APNP [address] [place] [address] PCP - General NURSE PRACTITIONER 05/06/18 documented as of this encounter
--- OUTSIDE RECORDS SUMMARY | 2024-07-10 22:58 | XMS_ITS | Encounter Summary ---
Author Organization [facility] Address [address] [place] [address]. [place], [place] [address] [place] [address] Care Team Providers Care Wool Sacker Name Role Phone Keyonna Armstrong Primary Care Provider [phone] Encounter Details Date Type Department Care Team (Latest Contact Info) Description 12/27/2022 Scan MG HEALTH INFO SRVCS Scanned, Doc [...] CDT Gender Identity Female 07/17/2022 10:27 AM LOWER SCHOOL SPANISH TEACHER Sexual Orientation Straight 07/17/2022 10 :27 AM LOWER SCHOOL SPANISH TEACHER COVID-19 Exposure Response Date Recorded In the last 10 days, have yo u been in contact with someone who was confirmed or suspected to have Coronavirus/COVID-19? Unable to assess 12/11/2022 6:37 AM CDT documented as of this encounter Plan of Treatment Upcoming Encounters Date Type Department Care Team (Late st Contact Info) Description 07/25/2024 10:00 AM LOWER SCHOOL SPANISH TEACHER Office Visit [facility] Medical Group Family & Internal Medicine - [place] [address] [place] [address] Keyonna Armstrong APNP [address] [place] [address] 07/31/2024 10:15 AM LOWER SCHOOL SPANISH TEACHER Office Visit [facility] THREE [facility], [facility] [address] [place] [phone] Pepe Mitchell MD Three [facility]. [facility] [address] [place], [place] [id number] documented as of this encounter Visit Diagnoses Not on filedocumented in this encounter Additional Health Concerns Assessment Noted Time PHQ-9 Depression Total Score: 22 020 3:46 PM LOWER SCHOOL SPANISH TEACHER documented as of this encounter Care Teams Wool Sacker Relationship Specialty Start Date End Date Keyonna Armstrong APNP [address] [place] [address] PCP - General NURSE PRACTITIONER 05/06/18 documented as of this encounter
--- OUTSIDE RECORDS SUMMARY | 2024-07-10 22:58 | XMS_ITS | Encounter Summary ---
Author Organization [facility] Address [address] [place] [address]. [place], [place] [address] [place] [address] Care Team Providers Care Security Officers And Guards Name Role Phone Keyonna Armstrong Primary Care Provider [phone] Reason for Referral * Consultation (Routine) - Closed Specialty Diagnoses / Procedures Referred By Lee saunders Referred To Contact FAMILY PRACTICE Diagnoses BMI 45.0-49.9, adult (CMS/HCC [facility]) Obesity Procedures OFFICE/OUTPT VISIT,NEW,LEVL III OFFICE/OUTPT VISIT,NEW,LEVL IV OFFICE/OUTPT VISIT,NEW,LEVL V OFFICE/OUTPT VISIT,EST,LEVL III OFFICE/OUTPT VISIT,EST,LEVL IV OFFICE/OUTPT VISIT,EST,LEVL V Keyonna Armstrong APNP [address] [place] [address] Phone: tel: fax: Mark Wheat MD Phone: tel: fax: Referral ID Status Reason Start Date Expiration Date V isits Requested Visits Authorized [id number] Closed Specialty Services 05/26/2022 03/21/2023 1 3 Scheduling Instructions Weight Management at [facility] Reason for Visit * Reason Onset Date Comments Referral 05/25/2022 Encounter Details Date Type Department Care Team (Late st Contact Info) Description 05/25/2022 Telephone [facility] Medical Group Family & Internal Medicine [place] [address] [place] [address] Keyonna Armstrong APNP [address] [place] [address] Referral Social History Tobacco Use Types Packs/Day Years [...] CDT Gender Identity Female 07/17/2022 10:27 AM MINING TEACHER Sexual Orientation Straight 07/17/2022 10 :27 AM MINING TEACHER documented as of this encounter Progress Notes * Nenita Young MA - 05/26/2022 3:23 PM CDT Referral placed * YOBANI Cruz - 05/26/2022 2:33 PM CDT Ok for referral * Keyla Stallings MA - 05/25/2022 2:38 PM CDT Endocrine referral not needed. [employer] called pt they said they need one for weight management referral at [facility]. DX code- obesity. [employer] messaged (doc halo) referral team to see what this would be under? [employer] tried internal medicine. OK for referral? BB 05/25/2022 * Indy Kang - 05/25/2022 10:13 AM CDT Patient needing referral for endcorine dr. Mark Wheat MD Ph. [phone] Appt: not yet. documented in this encounter Plan of Treatment Upcoming Encounters Date Type Department Care Team (Late st Contact Info) Description 07/25/2024 10:00 AM MINING TEACHER Office Visit [facility] Medical Group Family & Internal Medicine [address] [address] Keyonna Armstrong APNP [address] [place] [address] 07/31/2024 10:15 AM MINING TEACHER Office Visit [facility], [facility] [address] [place], [place] [address] Pepe Mitchell MD [facility]. [facility] [address] [place], [place] [phone] Scheduled Referrals Name Type Priority Associated Diagnoses Orde r Schedule Ambulatory referral to Internal Medicine (OTHER) Referral Routine BMI 45.0-49.9, adult ([facility]) Obesity Ordered: 05/26/2022 documented as of this encounter Visit Diagnoses Diagnosis BMI 45.0-49.9, adult ([facility])- Primary Body Mass Index 45.0-49.9, adult Obesity Obesity, unspecified documented in this encounter Additional Health Concerns Assessment Noted Time PHQ-9 Depression Total Score: 22 020 3:46 PM MINING TEACHER documented as of this encounter Care Teams Security Officers And Guards Relationship Specialty Start Date End Date Keyonna Armstrong APNP [address] [place] [address] PCP - General NURSE PRACTITIONER 05/06/18 documented as of this encounter
--- OUTSIDE RECORDS SUMMARY | 2024-07-10 22:58 | XMS_ITS | Encounter Summary ---
Author Organization [facility] Address [address] [place] [address]. [place], [place] [address] [place] [address] Care Team Providers Care Meter Reader Inspector Name Role Phone Keyonna Armstrong Primary Care Provider [phone] Encounter Details Date Type Department Care Team (Latest Contact Info) Description 06/24/2023 Scan HEALTH INFO SRVCS Scanned, Doc Med [...] CDT Gender Identity Female 07/17/2022 10:27 AM MERCHANDISING EXECUTION ASSOCIATE Sexual Orientation Straight 07/17/2022 10 :27 AM MERCHANDISING EXECUTION ASSOCIATE documented as of this encounter Plan of Treatment Upcoming Encounters Date Type Department Care Team ( Contact Info) Description 07/25/2024 10:00 AM MERCHANDISING EXECUTION ASSOCIATE Office Visit [facility] Medical Group Family & Internal Medicine [address] [address] Keyonna Armstrong APNP [address] [place] [address] 07/31/2024 10:15 AM MERCHANDISING EXECUTION ASSOCIATE Office Visit [facility], [facility] [address] [place], [place] [address] Pepe Mitchell MD Three [facility]. [facility] [address] [place] [address] documented as of this encounter Visit Diagnoses Not on filedocumented in this encounter Additional Health Concerns Assessment Noted Time PHQ-9 Depression Total Score: 22 020 3:46 PM MERCHANDISING EXECUTION ASSOCIATE documented as of this encounter Care Teams Meter Reader Inspector Relationship Specialty Start Date End Date Keyonna Armstrong APNP [address] [place] [address] PCP - General NURSE PRACTITIONER 05/06/18 documented as of this encounter
--- OUTSIDE RECORDS SUMMARY | 2024-07-10 22:58 | XMS_ITS | Encounter Summary ---
Author Organization [facility] Address [address] [place] [address]. [place] [id number] [place] [address] Care Team Providers Care Salesperson Neckties Name Role Phone Keyonna Armstrong Primary Care Provider [phone] Reason for Visit * Reason Onset Date Comments Apnea 09/12/2022 Encounter Details Date Type Department Care Team (Late st Contact Info) Description 09/12/[address] [facility] Medical Group Family & Internal Medicine [facility] [address] [place] [address] Keyonna Armstrong APNP [address] [place], [place] [phone] Apnea Social History Tobacco Use Types Packs/Day Years [...] CDT Gender Identity Female 07/17/2022 10:27 AM RESISTOR WINDER Sexual Orientation Straight 07/17/2022 10 :27 AM RESISTOR WINDER documented as of this encounter Progress Notes * Soo Choi RN - 09/28/2022 10:15 AM CST Faxed over order and supplies will be sipped out today. Patient notified and verbalized understanding. Opportunity given for all questions to be answered, no further needs voiced at this time. LL-09/28/22 STOR WINDER * YOBANI Cruz - 09/14/2022 4:12 PM CST yes STOR WINDER * Soo Choi RN - 09/14/2022 2:52 PM CST Okay to order? LL-09/14/22 STOR WINDER * Keyla Stallings MA - 09/12/2022 3:34 PM CST Pt said they called [facility] and [facility] said we need to fax a new order to [employer]. She needs new supplies and we need to fax a new order for the supplies. BB 09/12/2022 STOR WINDER documented in this encounter Plan of Treatment Upcoming Encounters Date Type Department Care Team (Late st Contact Info) Description 07/25/2024 10:00 AM RESISTOR WINDER Office Visit [facility] Medical Group Family & Internal Medicine - [place] [address] [place] [address] Keyonna Armstrong APNP [address] [place] [address] 07/31/2024 10:15 AM RESISTOR WINDER Office Visit [facility] THREE [facility], [address] [address] Pepe Mitchell MD Three [facility] [address] [place] [address] documented as of this encounter Visit Diagnoses Not on filedocumented in this encounter Additional Health Concerns Assessment Noted Time PHQ-9 Depression Total Score: 22 020 3:46 PM RESISTOR WINDER documented as of this encounter Care Teams Salesperson Neckties Relationship Specialty Start Date End Date Keyonna Armstrong APNP [facility] [place] [address] PCP - General NURSE PRACTITIONER 05/06/18 documented as of this encounter
--- OUTSIDE RECORDS SUMMARY | 2024-07-10 22:58 | XMS_ITS | Encounter Summary ---
Author Organization [facility] Address [address] [place] [address]. [place], [place] [phone] [place] [address] Care Team Providers Care Chief Environmental Commitment Officer Name Role Phone Keyonna Armstrong Primary Care Provider [phone] Encounter Details Date Type Department Care Team (Latest Contact Info) Description 09/29/2022 Travel Social History Tobacco Use Types Packs/Day [...] CDT Gender Identity Female 07/17/2022 10:27 AM LOAN SUPERVISOR Sexual Orientation Straight 07/17/2022 10 :27 AM LOAN SUPERVISOR COVID-19 Exposure Response Date Recorded In the last 10 days, have yo u been in contact with someone who was confirmed or suspected to have Coronavirus/COVID-19? No / Unsure 09/29/2022 7:45 AM LOAN SUPERVISOR documented as of this encounter Plan of Treatment Upcoming Encounters Date Type Department Care Team (Late st Contact Info) Description 07/25/2024 10:00 AM LOAN SUPERVISOR Office Visit [facility] Medical Group Family & Internal Medicine - [place] [address] [place] [address] Keyonna Armstrong APNP [address] [place] [address] 07/31/2024 10:15 AM LOAN SUPERVISOR Office Visit [facility], [facility] [address] [place] [address] Pepe Mitchell MD Three [facility]. [facility] [address] [place] [address] documented as of this encounter Visit Diagnoses Not on filedocumented in this encounter Additional Health Concerns Assessment Noted Time PHQ-9 Depression Total Score: 22 020 3:46 PM LOAN SUPERVISOR documented as of this encounter Care Teams Chief Environmental Commitment Officer Relationship Specialty Start Date End Date Keyonna Armstrong APNP [address] [place] [address] PCP - General NURSE PRACTITIONER 05/06/18 documented as of this encounter
--- OUTSIDE RECORDS SUMMARY | 2024-07-10 22:58 | XMS_ITS | Encounter Summary ---
Author Organization [facility] Address [address] [place] [address]. [place] [phone] [place], [place] [id number] Care Team Providers Care Safety Spec Name Role Phone Aracely Armstrong Primary Care Provider [phone] Reason for Visit * Reason Onset Date Comments Refill Request 01/29/2023 Encounter Details Date Type Department Care Team (Late st Contact Info) Description 01/29/2023 Telephone [facility] Medical Group Family & Internal Medicine [facility] [address] [place] [address] Aracely Armstrong APNP [address] [place] [address] Refill Request Social History Tobacco Use Types Packs/Day [...] CDT Gender Identity Female 07/17/2022 10:27 AM NANNY/HOUSEHOLD MANAGER Sexual Orientation Straight 07/17/2022 10 :27 AM NANNY/HOUSEHOLD MANAGER documented as of this encounter Progress Notes * Nenita Young MA - 01/29/2023 11:00 AM CDT Refill request received from Pharmacy Last visit with ARACELY ARMSTRONG in FAMILY PRACTICE was on: 07/20/2022 in [facility] No future appointments. [id number] [place], [place] - [address] [facility] [address] [facility] [address] [facility] [address] [place] [facility] [address] [facility] [address] [facility] [address] Current Outpatient Medications: amLODIPine (NORVASC) 5 MG tablet, TAKE 1 TABLET (5 MG TOTAL) BY MOUTH DAILY., Disp: 90 tablet, Rfl:0 buPROPion SR (WELLBUTRIN SR) 150 MG 12 hr tablet, TAKE 1 TABLET BY MOUTH TWICE A DAY, Disp: 180 tablet, Rfl: 0 gabapentin (NEURONTIN) 100 MG capsule, Take 1 capsule (100 mg total) by mouth 3 (three) times daily., Disp: , Rfl: hydroCHLOROthiazide (HYDRODIURIL) 25 MG tablet, TAKE 1 TABLET BY MOUTH EVERY DAY, Disp: 90 tablet, Rfl: 0 ibuprofen (MOTRIN) 800 MG tablet, TAKE 1 TABLET BY MOUTH EVERY 12 HOURS NEEDED FOR PAIN, Disp: 90 tablet, Rfl: 0 lisinopril (PRINIVIL) 40 MG tablet, TAKE 1 TABLET BY MOUTH EVERY DAY, Disp: 90 tablet, Rfl: 1 LORazepam (ATIVAN) 1 MG tablet, Take 1 tablet (1 mg total) by mouth every 8 (eight) hours as neededfor Anxiety (regularly takes 3 tabs daily)., Disp: 60 tablet, Rfl: 0 magnesium 250 MG tablet, Take 1 tablet (250 mg total) by mouth daily., Disp: , Rfl: metFORMIN (GLUCOPHAGE) 500 MG tablet, TAKE 1 TABLET BY MOUTH EVERY MORNING AND 2 TABLETS AT BEDTIME, Disp: 270 tablet, Rfl: 0 metoprolol succinate ER (TOPROL-XL) 100 MG 24 hr tablet, TAKE 1 TABLET BY MOUTH EVERY DAY, Disp: 90tablet, Rfl: 1 mirtazapine (REMERON) 15 MG tablet, TAKE 1 TABLET BY MOUTH EVERYDAY AT BEDTIME, Disp: 15 tablet, Rfl: 0 Multiple Vitamin (MULTI-VITAMIN) tablet, Take 1 tablet by mouth daily., Disp: , Rfl: pantoprazole EC (PROTONIX) 20 MG tablet, TAKE 1 TABLET BY MOUTH DAILY. PATIENT MUST BE SEEN FOR FURTHER REFILLS, Disp: 90 tablet, Rfl: 0 venlafaxine XR (EFFEXOR-XR) 75 MG 24 hr capsule, TAKE 1 CAPSULE BY MOUTH EVERY MORNING AND 2 CAPSULES EVERY EVENING, Disp: 270 capsule, Rfl: 0 zolpidem CR (AMBIEN CR) 12.5 MG tablet, TAKE 1 TABLET BY MOUTH EVERY DAY AT BEDTIME NEEDED FOR SLEEP, Disp: 30 tablet, Rfl: 0 documented in this encounter Plan of Treatment Upcoming Encounters Date Type Department Care Team (Late st Contact Info) Description 07/25/2024 10:00 AM NANNY/HOUSEHOLD MANAGER Office Visit [facility] Medical Group Family & Internal Medicine [address] [address] Aracely Armstrong APNP [address] [place] [address] 07/31/2024 10:15 AM NANNY/HOUSEHOLD MANAGER Office Visit [facility], [facility] [address] [place] [address] Pepe Mitchell MD [facility]. [facility] [address] [place] [address] documented as of this encounter Visit Diagnoses Diagnosis Primary insomnia Persistent disorder of initiating or maintaining sleep documented in this encounter Additional Health Concerns Assessment Noted Time PHQ-9 Depression Total Score: 22 020 3:46 PM NANNY/HOUSEHOLD MANAGER documented as of this encounter Care Teams Safety Spec Relationship Specialty Start Date End Date Aracely Armstrong APNP [address] [place] [address] PCP - General NURSE PRACTITIONER 05/06/18 documented as of this encounter
--- OUTSIDE RECORDS SUMMARY | 2024-07-10 22:58 | XMS_ITS | Encounter Summary ---
Author Organization [facility] Address [address] [place] [address]. [place] [phone] [place], [place] [id number] Care Team Providers Care Cake Wrapper Name Role Phone Keyonna Armstrong Primary Care Provider [phone] Reason for Visit * Reason Onset Date Comments Downtime Visit 04/06/2023 Encounter Details Date Type Department Care Team (Late st Contact Info) Description 03/22/2023 8:00 AM CDT Office Visit [facility] Medical Group Family & Internal Medicine [place] [address] [place] [address] Keyonna Armstrong APNP [facility] [place], [place] [phone] Downtime Visit Social History Tobacco Use Types Packs/Day Years [...] CDT Gender Identity Female 07/17/2022 10:27 AM COLLAR POINTER Sexual Orientation Straight 07/17/2022 10 :27 AM COLLAR POINTER documented as of this encounter Last Filed Vital Signs Vital Sign Reading Time Taken Comments Blood Pressure 118/72 03/22/2023 9:51 AM CDT Pulse 136 03/22/2023 9:51 AM CDT Temperature 36.2 ??C (97.1 ??F) 03/22/2023 9:51 AM CD T Respiratory Rate 16 03/22/2023 9:51 AM CDT Oxygen Saturation 96% 03/22/2023 9:51 AM CDT Inhaled Oxygen Concentration - - Weight 130.2 kg (287 lb 1.6 oz) 03/22/2023 9:51 AM CDT Height 162.6 cm (5' 4) 03/22/2023 9:51 AM CDT Body Mass Index 49.28 03/22/2023 9:51 AM CDT documented in this encounter Progress Notes * Sophie Her MD - 08/06/2023 10:08 AM CST Additional documentation from 03/18/23-04/03/23 may be found under the media tab. AR POINTER * Fartun Omalley RN - 03/22/2023 8:00 AM CDT Refer to scanned documents for care provided during this time. documented in this encounter Plan of Treatment Upcoming Encounters Date Type Department Care Team (Late st Contact Info) Description 07/25/2024 10:00 AM COLLAR POINTER Office Visit [facility] Medical Group Family & Internal Medicine - [place] [address] [place] [address] Keyonna Armstrong APNP [address] [place] [address] 07/31/2024 10:15 AM COLLAR POINTER Office Visit [facility], [place] [address] [place] [address] Pepe Mitchell MD Three [facility]. [facility] [address] [place] [address] documented as of this encounter Procedures Procedure Name Priority Date/Time Associated Diagnosis Comments COLLECT.CAPILLARY (FNGR,HEEL,EAR) Routine 04/06/2023 9:54 AM CDT PCOS (polycystic ovarian syndrome) Impaired fasting glucose HEMOGLOBIN, GLYCOSYLATED Routine 03/22/2023 PCOS (polycystic ovarian syndrome) Impaired fasting glucose documented in this encounter Results * A1C (BACK OFFICE) (03/22/2023) HGB A1C 5.7 % [facility] 03/22/2023 us Keyonna [facility] Final Resul t Performing Organization Address City/State/[facility] [place] [address], documented in this encounter Visit Diagnoses Diagnosis PCOS (polycystic ovarian syndrome)- Primary Polycystic ovaries Impaired fasting glucose DOWNTIME VISIT documented in this encounter Additional Health Concerns Assessment Noted Time PHQ-9 Depression Total Score: 22 07/29/ 020 3:46 PM COLLAR POINTER documented as of this encounter Care Teams Cake Wrapper Relationship Specialty Start Date End Date Keyonna Armstrong APNP [address] [place] [address] PCP - General NURSE PRACTITIONER 05/06/18 documented as of this encounter
--- OUTSIDE RECORDS SUMMARY | 2024-07-10 22:58 | XMS_ITS | Encounter Summary ---
Author Organization [facility] Address [address] [place] [address]. [place] [address] Care Team Providers Care Heel Caser Name Role Phone Aracely Armstrong Primary Care Provider [phone] Reason for Referral * Sleep Lab (Routine) - Closed Specialty Diagnoses / Procedures Referred By Contgoldy t Referred To Contact Diagnoses Obstructive sleep apnea Other fatigue Anxiety Primary insomnia Procedures Home Sleep Study - WatchPat (17975/G0400) Arcaely Armstrong APNP [address] [place] [address] Phone: tel: fax: Referral ID Status Reason Start Date Expiration Date Visits Re quested Visits Authorized [id number] Closed 10/04/2023 10/03/2024 1 1 Reason for Visit * Reason Comments Sleep Apnea Encounter Details Date Type Department Care Team (Late st Contact Info) Description 10/04/2023 11:00 AM CDT Telemedicine [facility] Family & Internal Medicine - [place] [address] [place] [address] Aracely Armstrong APNP [address] [place], [place] [id number] Sleep Apnea Social History Tobacco Use Types Packs/Day [...] CDT Gender Identity Female 07/17/2022 10:27 AM 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 [facility] FAMILY AND INTERNAL [facility]ICINE OFFICE VISIT I introduced and identified myself, received verbal consent from the patient to proceed with this video visit and made the patient aware that the same confidentiality and nursing information systems coordinator practices apply. The patient joined the video visit from Home. I completed the virtual visit from Office. The following clinical staff helped with this visit MA: Darlene . Total Time Spent in Minutes: 10 Reason for Visit: Sleep Apnea History of Present Illness: 53 yo female presents today via VV to discuss need for updated sleep study. She currently uses CPAPand is in need of a new CPAP machine. In order for this to occur, she needed a copy of her most recent sleep study which unfortunately I did not have. She had her last sleep study several years ago and she is in need of an updated sleep study anyway. . She has issues with elevated HR. We have worked this up in the past with no specific outcome, however it appears over time, this has worsened. When she was initially placed on metoprolol, symptoms had improved. HR at her oncology appt in 07/2023 was noted to be 97. She continues to deny CP or SOB. I have sent her to endocrinology more than once for an incidental adenoma---pt has not attended appointments or followed up. Will speak with pt and update referral as well as labs. Pt states she was seen in the ER at [facility] in the last couple of months and had an EKG there. Will obtain old records. ROS: Review of Systems Constitutional: Negative for chills and fever. Respiratory: Negative for cough and shortness of breath. Cardiovascular: Negative for chest pain and palpitations. Gastrointestinal: Negative for abdominal pain and vomiting. Neurological: Negative for dizziness and headaches. Medications: Current Outpatient Medications: amLODIPine (NORVASC) 5 MG tablet, TAKE 1 TABLET (5 MG TOTAL) BY MOUTH DAILY. PATIENT MUST BE SEEN FOR FURTHER REFILLS, Disp: 90 tablet, Rfl: 0 buPROPion SR (ZYBAN) 150 MG 12 hr [...] BEDTIME, Disp: 270 tablet, Rfl: 1 metoprolol succinate ER (TOPROL-XL) 100 MG 24 hr tablet, TAKE 1 TABLET BY MOUTH EVERY DAY (Patient taking differently: Take 1 tablet (100 mg total) by mouth 2 (two) times a day.), Disp: 90 tablet, Rfl: 1 mirtazapine (REMERON) 15 MG tablet, [...] EVERY DAY IN THE EVENING, Disp: ,Rfl: tirzepatide (MOUNJARO) 7.5 MG/0.5ML injection, Inject 7.5 mLs into the skin every 7 days., Disp: , Rfl: TURMERIC CURCUMIN OR, , Disp: , Rfl: venlafaxine XR (EFFEXOR-XR) 75 MG 24 hr capsule, TAKE 1 CAPSULE BY MOUTH EVERY MORNING AND 2 CAPSULES EVERY EVENING, Disp: 270 capsule, Rfl: 0 vitamin D3 (CHOLECALCIFEROL) 25 mcg tablet, Take 1 tablet (25 mcg total) by mouth daily., Disp: , Rfl: zolpidem (AMBIEN) 10 MG tablet, Take 1 tablet (10 mg total) by mouth nightly as needed for Sleep., Disp: , Rfl: Biotin 5000 MCG Cap, , Disp: , Rfl: hydroCHLOROthiazide (HYDRODIURIL) 25 MG tablet, TAKE 1 TABLET BY MOUTH EVERY DAY Patient must be seen for further refills (Patient not taking: Reported on 10/04/2023), Disp: 30 tablet, Rfl: 0 Allergies: Review of patient's allergies indicates: Allergen Reactions Trazodone Hallucinations Medical History: Past Medical History: Diagnosis Date Adrenal adenoma 10/11/2017 Anxiety 09/20/2017 Cholecystitis 06/11/2018 Depression 06/19/2012 Diabetes mellitus ([facility]) Esophageal reflux 04/22/2013 Hypertension 06/19/2012 Insomnia 04/02/2018 Menorrhagia 04/02/2018 Morbid obesity ([facility]) 09/23/2013 Obstructive sleep apnea 08/02/2012 Sinus tachycardia 09/20/2017 Surgical History: Past Surgical History: Procedure Laterality Date CHOLECYSTECTOMY COLONOSCOPY N/A 01/12/2020 COLONOSCOPY SCREENING performed by Burt Payne MD at [facility] [place] GI GASTRIC BYPASS N/A 2004 Social History: Social History Socioeconomic History Marital status: Tobacco Use Smoking status: Never Smokeless tobacco: Never Vaping Use Vaping Use: Never used Substance and Sexual Activity Alcohol use: No Drug use: No Sexual activity: Yes Partners: Male Social Determinants of Health Intimate Partner Violence: Unknown (01/06/2020) Humiliation, Afraid, Rape, and Kick questionnaire Fear of Current or Ex-Partner: Patient declined Emotionally Abused: Patient declined Physically Abused: Patient declined Sexually Abused: Patient declined Family History: Family History Problem Relation Name Age of Onset Liver Disease Mother Hypertension Mother Diabetes Father Thyroid Sister Liver Disease Brother Stroke Maternal Grandmother PE: Physical Exam Vitals and nursing note reviewed. Neck: Trachea: No tracheal deviation. Pulmonary: Effort: Pulmonary effort is normal. Neurological: Mental Status: She is alert and oriented to person, place, and time. Gait: Gait is intact. Psychiatric: Mood and Affect: Mood and affect normal. There were no vitals filed for this visit. Labs: Labs Reviewed Diagnoses/Impression: 1. Obstructive sleep apnea Chronic Home Sleep Study - WatchPat (34403/G0400) 2. Other fatigue Home Sleep Study - WatchPat (73530/G0400) 3. Anxiety Chronic Home Sleep Study - WatchPat (37041/G0400) 4. Primary insomnia Chronic Home Sleep Study - WatchPat (72704/G0400) Recommendations and Plan: 1. Obstructive sleep apnea - Home Sleep Study - WatchPat (34213/G0400); Future 2. Other fatigue - Home Sleep Study - WatchPat (66276/G0400); Future 3. Anxiety - Home Sleep Study - WatchPat (26804/G0400); Future 4. Primary insomnia - Home Sleep Study - WatchPat (72279/G0400); Future Home sleep study ordered. Patient is aware she will have to follow-up in office to discuss results.Awaiting recent [facility] ER notes Orders Placed This Encounter Home Sleep Study - WatchPat (41020/G0400) estradiol (VIVELLE-DOT) 0.05 MG/24HR patch vitamin D3 (CHOLECALCIFEROL) 25 mcg tablet Magnesium 400 MG Cap dimenhyDRINATE (DRAMAMINE) 50 MG Tab tablet diphenhydrAMINE-APAP (TYLENOL PM) 25-500 MG Tab tablet Multiple Vitamins-Minerals (HAIR SKIN NAILS OR) Cranberry-Vitamin C-Probiotic (AZO CRANBERRY) 250-30 MG Tab Biotin 5000 MCG Cap Misc Natural Products (ELDERBERRY/VITAMIN C/ZINC) Chew Tab TURMERIC CURCUMIN OR Multiple Vitamins-Minerals (LIVER DETOX OR) progesterone (PROMETRIUM) 200 MG capsule zolpidem (AMBIEN) 10 MG tablet tirzepatide (MOUNJARO) 7.5 MG/0.5ML injection Cannot display discharge medications since this is not an admission. PCP: YOBANI Cruz 10/15/2023 documented in this encounter Plan of Treatment Upcoming Encounters Date Type Department Care Team (Late st Contact Info) Description 07/25/2024 10:00 AM COMMUNITY COORDINATOR FOR [employer] Office Visit [facility] Family & Internal Medicine - [address] [address] Aracely Armstrong APNP [address] [place] [address] 07/31/2024 10:15 AM COMMUNITY COORDINATOR FOR [employer] Office Visit Aaliyah Alexander-O'Fallo lalita THREE [facility], [facility] [address] [place] [address] Pepe Mitchell MD Three [facility]. [facility] [address] [place], [place] [address] documented as of this encounter Results * Home Sleep Study - WatchPat (88542/G0400) (01/04/2024 11:30 AM CDT) Narrative [facility] - 01/04/2024 11:30 AM CDT Deondre Wheat MD ? 01/09/2024 ??2:02 PM Patient Information First Name: KIERA Last Name: TONJA ID: [id number] Date: 1970 Age: 53 Gender: Female BMI: [...] Tachycardia was noted during this study. RECOMMENDATIONS [place] treatment option should be discussed with the [...] snoring and other sleep-related issues, such as FUEL CELL BINDER depressants, especially at bedtime. Raw data reviewed and electronically signed by: Deondre Wheat ??on 01/09/2024 2:01:02 PM at ??7:01:06PM, [facility] us Aracely Armstrong [facility] SLEEP CENTER ORDERABLES Fin al Result [facility] [address] [place] [id number], documented in this encounter Visit Diagnoses Diagnosis Obstructive sleep apnea- Primary Obstructive sleep apnea (adult) (pediatric) Other fatigue Anxiety Anxiety state, unspecified Primary insomnia Persistent disorder of initiating or maintaining sleep Obstructive sleep apnea Obstructive sleep apnea (adult) (pediatric) Other fatigue Anxiety Anxiety state, unspecified Primary insomnia Persistent disorder of initiating or maintaining sleep documented in this encounter Additional Health Concerns Assessment Noted Time PHQ-9 Depression Total Score: 22 07/29/ 020 3:46 PM COMMUNITY COORDINATOR [employer] documented as of this encounter Care Teams Heel Caser Relationship Specialty Start Date End Date Aracely Armstrong APNP [address] [place] [address] PCP - General NURSE PRACTITIONER 05/06/18 documented as of this encounter
--- OUTSIDE RECORDS SUMMARY | 2024-07-10 22:58 | XMS_ITS | Encounter Summary ---
Author Organization [facility] Address [address] [place] [address]. [place], [place] [address] [place] [address] Care Team Providers Care Pluck Trimmer Name Role Phone Keyonna Armstrong Primary Care Provider [phone] Encounter Details Date Type Department Care Team (Latest Contact Info) Description 05/28/2023 Scan HEALTH INFO SRVCS Scanned, Doc Med [...] CDT Gender Identity Female 07/17/2022 10:27 AM BINDERY LEADPERSON Sexual Orientation Straight 07/17/2022 10 :27 AM BINDERY LEADPERSON documented as of this encounter Plan of Treatment Upcoming Encounters Date Type Department Care Team ( Contact Info) Description 07/25/2024 10:00 AM BINDERY LEADPERSON Office Visit [facility] Family & Internal Medicine [address] [address] Keyonna Armstrong APNP [address] [place] [address] 07/31/2024 10:15 AM BINDERY LEADPERSON Office Visit Aaliyah Cardiovascular-O'Fallo n THREE [facility], [facility] [address] [place], [place] [address] Pepe Mitchell MD Three [facility]. [facility] [address] [place] [address] documented as of this encounter Visit Diagnoses Not on filedocumented in this encounter Additional Health Concerns Assessment Noted Time PHQ-9 Depression Total Score: 22 020 3:46 PM BINDERY LEADPERSON documented as of this encounter Care Teams Pluck Trimmer Relationship Specialty Start Date End Date Keyonna Armstrong APNP [address] [place] [address] PCP - General NURSE PRACTITIONER 05/06/18 documented as of this encounter
--- OUTSIDE RECORDS SUMMARY | 2024-07-10 22:58 | XMS_ITS | Encounter Summary ---
Author Organization [facility] Address [address] [place] [address]. [place], [place] [address] [place] [address] Care Team Providers Care Clinical Research Monitor Name Role Phone Keyonna Armstrong Primary Care Provider [phone] Reason for Visit * Reason Comments Lab (SCAN) Encounter Details Date Type Department Care Team (Latest Contact Info) Description 11/13/2022 Scan HEALTH INFO SRVCS Scanned, Doc Med [...] CDT Gender Identity Female 07/17/2022 10:27 AM TELETYPE OR VARITYPE KEYBOARD OPERATOR Sexual Orientation Straight 07/17/2022 10 :27 AM TELETYPE OR VARITYPE KEYBOARD OPERATOR COVID-19 Exposure Response Date Recorded In the last 10 days, have yo u been in contact with someone who was confirmed or suspected to have Coronavirus/COVID-19? Unable to assess 10/23/2022 6:39 AM CDT documented as of this encounter Plan of Treatment Upcoming Encounters Date Type Department Care Team (Late st Contact Info) Description 07/25/2024 10:00 AM TELETYPE OR VARITYPE KEYBOARD OPERATOR Office Visit [facility] Family & Internal Medicine - [place] [address] [place] [address] Keyonna Armstrong APNP [address] [place] [address] 07/31/2024 10:15 AM TELETYPE OR VARITYPE KEYBOARD OPERATOR Office Visit Aaliyah Cardiovascular-O'Fallo n THREE [facility], [facility] [address] [place], [place] [phone] Pepe Mitchell MD Three [facility]. [facility] [address] [place], [place] [phone] documented as of this encounter Procedures Procedure Name Priority Date/Time Associated Diagnosis Comments OUTSIDE LAB (SCAN ORDER) 11/13/2022 OUTSIDE LAB (SCAN ORDER) 11/13/2022 documented in this encounter Results * OUTSIDE LAB (SCAN) (11/13/2022) 11/13/2022 [facility] Scanned SCANNING Final Resu lt * OUTSIDE LAB (SCAN) (11/13/2022) 11/13/2022 [facility] Scanned SCANNING Final Resu lt documented in this encounter Visit Diagnoses Not on filedocumented in this encounter Additional Health Concerns Assessment Noted Time PHQ-9 Depression Total Score: 22 020 3:46 PM TELETYPE OR VARITYPE KEYBOARD OPERATOR documented as of this encounter Care Teams Clinical Research Monitor Relationship Specialty Start Date End Date Keyonna Armstrong APNP [address] [place] [address] PCP - General NURSE PRACTITIONER 05/06/18 documented as of this encounter
--- OUTSIDE RECORDS SUMMARY | 2024-07-10 22:58 | XMS_ITS | Encounter Summary ---
Author Organization [facility] Address [address] [place] [address]. [place], [place] [address] [place] [address] Care Team Providers Care Aviation All Source Intelligence Name Role Phone Keyonna Armstrong Primary Care Provider [phone] Encounter Details Date Type Department Care Team (Latest Contact Info) Description 10/03/2023 Scan HEALTH INFO SRVCS Scanned, Doc Med [...] CDT Gender Identity Female 07/17/2022 10:27 AM TEACHING ASSISTANT Sexual Orientation Straight 07/17/2022 10 :27 AM TEACHING ASSISTANT documented as of this encounter Plan of Treatment Upcoming Encounters Date Type Department Care Team ( Contact Info) Description 07/25/2024 10:00 AM TEACHING ASSISTANT Office Visit [facility] Family & Internal Medicine [address] [address] Keyonna Armstrong APNP [address] [place] [address] 07/31/2024 10:15 AM TEACHING ASSISTANT Office Visit Aaliyah Cardiovascular-O'Fallo n THREE [facility], [facility] [address] [place], [place] [address] Pepe Mitchell MD Three [facility]. [facility] [address] [place] [address] documented as of this encounter Visit Diagnoses Not on filedocumented in this encounter Additional Health Concerns Assessment Noted Time PHQ-9 Depression Total Score: 22 020 3:46 PM TEACHING ASSISTANT documented as of this encounter Care Teams Aviation All Source Intelligence Relationship Specialty Start Date End Date Keyonna Armstrong APNP [address] [place] [address] PCP - General NURSE PRACTITIONER 05/06/18 documented as of this encounter
--- OUTSIDE RECORDS SUMMARY | 2024-07-10 22:58 | XMS_ITS | Encounter Summary ---
Author Organization [facility] Address [address] [place] [address]. [place], [place] [address] [place] [address] Care Team Providers Care Inventory Coordinator Name Role Phone Keyonna Armstrong Primary Care Provider [phone] Encounter Details Date Type Department Care Team (Latest Contact Info) Description 11/26/2021 Scan HEALTH INFO SRVCS Scanned, Documents Social [...] CDT Gender Identity Female 07/17/2022 10:27 AM LOOK OUT TOWER FIRE WATCHER Sexual Orientation Straight 07/17/2022 10 :27 AM LOOK OUT TOWER FIRE WATCHER documented as of this encounter Plan of Treatment Upcoming Encounters Date Type Department Care Team ( Contact Info) Description 07/25/2024 10:00 AM LOOK OUT TOWER FIRE WATCHER Office Visit [facility] Family & Internal Medicine [address] [address] Keyonna Armstrong APNP [address] [place] [address] 07/31/2024 10:15 AM LOOK OUT TOWER FIRE WATCHER Office Visit Aaliyah Cardiovascular-O'Fallo n THREE [facility], [facility] [address] [place] [address] Pepe Mitchell MD Three [facility]. [facility] [address] [place] [address] documented as of this encounter Visit Diagnoses Not on filedocumented in this encounter Additional Health Concerns Assessment Noted Time PHQ-9 Depression Total Score: 22 020 3:46 PM LOOK OUT TOWER FIRE WATCHER documented as of this encounter Care Teams Inventory Coordinator Relationship Specialty Start Date End Date Keyonna Armstrong APNP [address] [place] [address] PCP - General NURSE PRACTITIONER 05/06/18 documented as of this encounter
--- OUTSIDE RECORDS SUMMARY | 2024-07-10 22:58 | XMS_ITS | Encounter Summary ---
Author Organization [facility] Address [address] [place] [address]. [place], [place] [address] [place] [address] Care Team Providers Care Juvenile Correctional Officer Name Role Phone Keyonna Armstrong Primary Care Provider [phone] Encounter Details Date Type Department Care Team (Latest Contact Info) Description 05/22/2022 Scan HEALTH INFO SRVCS Scanned, Doc Med [...] CDT Gender Identity Female 07/17/2022 10:27 AM RHINESTONE SETTER Sexual Orientation Straight 07/17/2022 10 :27 AM RHINESTONE SETTER documented as of this encounter Plan of Treatment Upcoming Encounters Date Type Department Care Team (Late st Contact Info) Description 07/25/2024 10:00 AM RHINESTONE SETTER Office Visit [facility] Family & Internal Medicine [address] [address] Keyonna Armstrong APNP [address] [place] [address] 07/31/2024 10:15 AM RHINESTONE SETTER Office Visit Aaliyah Cardiovascular-O'Fallo n THREE [facility], [facility] [address] [place], [place] [address] Pepe Mitchell MD Three [facility]. [facility] [address] [place] [address] documented as of this encounter Visit Diagnoses Not on filedocumented in this encounter Additional Health Concerns Assessment Noted Time PHQ-9 Depression Total Score: 22 020 3:46 PM RHINESTONE SETTER documented as of this encounter Care Teams Juvenile Correctional Officer Relationship Specialty Start Date End Date Keyonna Armstrong APNP [address] [place] [address] PCP - General NURSE PRACTITIONER 05/06/18 documented as of this encounter
--- OUTSIDE RECORDS SUMMARY | 2024-07-10 22:58 | XMS_ITS | Encounter Summary ---
Author Organization [facility] Address [address] [place] [address]. [place], [place] [address] [place] [address] Care Team Providers Care Platform Architect Name Role Phone Keyonna Armstrong Primary Care Provider [phone] Reason for Referral * Consultation (Routine) - Closed Specialty Diagnoses / Procedures Referred By Lee t Referred To Contact HEMATOLOGY/ONCOLOGY Diagnoses Abnormal CBC Procedures OFFICE/OUTPT VISIT,NEW,LEVL III OFFICE/OUTPT VISIT,NEW,LEVL IV OFFICE/OUTPT VISIT,NEW,LEVL V OFFICE/OUTPT VISIT,EST,LEVL III OFFICE/OUTPT VISIT,EST,LEVL IV OFFICE/OUTPT VISIT,EST,LEVL V Keyonna Armstrong APNP [address] [place] [address] Phone: tel: fax: Woody Horvath MD [address] [place] [address] Phone: tel: fax: Referral ID Status Reason Start Date Expiration Date V isits Requested Visits Authorized [id number] Closed Specialty Services 10/03/2022 07/29/2023 1 3 Reason for Visit * Reason Onset Date Comments Results 10/03/2022 Encounter Details Date Type Department Care Team (Late st Contact Info) Description 10/03/2022 Telephone [facility] Family & Internal Medicine - [address] [address] Keyonna Armstrong APNP [address] [place] [address] Results Social History Tobacco Use Types Packs/Day [...] Gender Identity Female 07/17/2022 10:27 AM MEDICAL RECORDS SECRETARY Sexual Orientation Straight 07/17/2022 10 :27 AM MEDICAL RECORDS SECRETARY COVID-19 Exposure Response Date Recorded In the last 10 days, have yo u been in contact with someone who was confirmed or suspected to have Coronavirus/COVID-19? No / Unsure 09/29/2022 7:45 AM MEDICAL RECORDS SECRETARY documented as of this encounter Progress Notes * Nenita Young MA - 10/03/2022 12:06 PM CDT Patient notified and v/u. Referral placed 10/03/22 * Nenita Young MA - 10/03/2022 12:05 PM CDT ----- Message from YOBANI Cruz sent at 10/03/2022 10:45 AM CDT ----- WBC, lymphocytes and monocytes remains sl elevated. This is not necessarily a new or worse finding for her. Has she ever seen a custodian supervisor? If not, I think she should. TG's elevated---reduce sweets, processed foods, fried foods and sugars in diet documented in this encounter Plan of Treatment Upcoming Encounters Date Type Department Care Team (Late st Contact Info) Description 07/25/2024 10:00 AM MEDICAL RECORDS SECRETARY Office Visit [facility] Family & Internal Medicine - [place] [address] [place] [address] Keyonna Armstrong APNP [address] [place] [address] 07/31/2024 10:15 AM MEDICAL RECORDS SECRETARY Office Visit Aaliyah Cardiovascular-O'Fallo n THREE [facility], [facility] [address] [place], [place] [phone] Pepe Mitchell MD Three [facility]. [facility] [address] [place], [place] [phone] Scheduled Referrals Name Type Priority Associated Diagnoses Orde r Schedule Ambulatory referral to Hematology/Oncology (OTHER) Referral Routine Abnormal CBC Ordered: 10/03/2022 documented as of this encounter Visit Diagnoses Diagnosis Abnormal CBC- Primary Other abnormal blood chemistry documented in this encounter Additional Health Concerns Assessment Noted Time PHQ-9 Depression Total Score: 22 020 3:46 PM MEDICAL RECORDS SECRETARY documented as of this encounter Care Teams Platform Architect Relationship Specialty Start Date End Date Keyonna Armstrong APNP [address] [place] [address] PCP - General NURSE PRACTITIONER 05/06/18 documented as of this encounter
--- OUTSIDE RECORDS SUMMARY | 2024-07-10 22:58 | XMS_ITS | Encounter Summary ---
Author Organization [facility] Address [address] [place] [address]. [place] [id number] [place] [id number] Care Team Providers Care Broadcast Systems Engineer Name Role Phone Keyonna Armstrong Primary Care Provider [phone] Reason for Visit * Reason Comments Sleep Problem Encounter Details Date Type Department Care Team (Late st Contact Info) Description 12/11/2022 11:00 AM CDT Telemedicine [facility] Family & Internal Medicine [facility] [address] [place] [id number] Keyonna Armstrong APNP [address] [place], [place] [id number] Sleep Problem Social History Tobacco Use Types Packs/Day Years [...] Gender Identity Female 07/17/2022 10:27 AM MANAGER OB Sexual Orientation Straight 07/17/2022 10 :27 AM MANAGER OB COVID-19 Exposure Response Date Recorded In the last 10 days, have yo u been in contact with someone who was confirmed or suspected to have Coronavirus/COVID-19? Unable to assess 12/11/2022 6:37 AM CDT documented as of this encounter Progress Notes * Keyonna Armstrong, YOBANI - 12/11/2022 11:00 AM CDT Images from the original note were not included. [facility] FAMILY AND INTERNAL MEDICINE OFFICE VISIT I introduced and identified myself, received verbal consent from the patient to proceed with this video visit and made the patient aware that the same confidentiality and information services vice president practices apply. The patient joined the video visit from Home. I completed the virtual visit from Office. The following clinical staff helped with this visit MA: Zita . Total Time Spent in Minutes: 10 Reason for Visit: Sleep Problem History of Present Illness: 52 yo female presents today via VV to discuss her insomnia. She is currently on zolpidem IR. She does not feel like the ambien is as effective as it once was. She did try extended release ambien but her insurance would not cover. She has been on other meds (to include trazodone) and either felt it was either not effective or her insurance would not cover. She thinks she would like to try something else if she could. ROS: Review of Systems Constitutional: Negative for chills and fever. HENT: Negative for congestion and hearing loss. Eyes: Negative for blurred vision and double vision. Respiratory: Negative for cough and shortness of breath. Cardiovascular: Negative for chest pain and palpitations. Gastrointestinal: Negative for abdominal pain and vomiting. Genitourinary: Negative for dysuria and urgency. Skin: Negative for itching and rash. Neurological: Negative for dizziness and headaches. Psychiatric/Behavioral: [...] NEEDED FOR PAIN, Disp: 90 tablet, Rfl: 2 lisinopril (PRINIVIL) 40 MG tablet, TAKE 1 [...] Rfl: 1 mirtazapine (REMERON) 15 MG tablet, Take 1 tablet (15 mg total) by mouth nightly at bedtime., Disp:30 tablet, Rfl: 1 Multiple Vitamin (MULTI-VITAMIN) tablet, Take 1 tablet [...] MG tablet, TAKE 1 TABLET BY MOUTH NIGHTLY NEEDED FOR SLEEP, Disp: 30 tablet, Rfl: 0 Allergies: Review of patient's allergies indicates: Allergen Reactions Trazodone Hallucinations Medical History: Past Medical History: Diagnosis Date Adrenal adenoma 10/11/2017 Anxiety 09/20/2017 Cholecystitis 06/11/2018 Depression 06/19/2012 Diabetes mellitus (CMS/HCC) Esophageal reflux 04/22/2013 Hypertension 06/19/2012 Insomnia 04/02/2018 Menorrhagia 04/02/2018 Morbid obesity (CMS/HCC) 09/23/2013 Obstructive sleep apnea 08/02/2012 Sinus tachycardia 09/20/2017 Surgical History: Past Surgical History: Procedure Laterality Date CHOLECYSTECTOMY COLONOSCOPY N/A 01/12/2020 COLONOSCOPY SCREENING performed by Burt Payne MD at [facility] GI GASTRIC BYPASS N/A 2004 Social History: Social History Socioeconomic History Marital status: Tobacco Use Smoking status: Never Smokeless tobacco: Never Vaping Use Vaping Use: Never used Substance and Sexual Activity Alcohol use: No Drug use: No Sexual activity: Yes Partners: Male Family History: Family History Problem Relation Name Age of Onset Liver Disease Mother Hypertension Mother Diabetes Father Thyroid Sister Liver Disease Brother Stroke Maternal Grandmother PE: Physical Exam Pulmonary: Effort: Pulmonary effort is normal. No respiratory distress. Neurological: Mental Status: She is alert and oriented to person, place, and time. There were no vitals filed for this visit. Labs: Labs Reviewed Diagnoses/Impression: 1. Primary insomnia Chronic mirtazapine (REMERON) 15 MG tablet Recommendations and Plan: 1. Primary insomnia - mirtazapine (REMERON) 15 MG tablet; Take 1 tablet (15 mg total) by mouth nightly at bedtime. Dispense: 30 tablet; Refill: 1 We discussed treatment options and some of the newer meds most likely will be covered by her insurance. We will try mirtazapine. We discussed the risk, benefits and side effects to include possible drug interactions. Patient verbalized understanding and knows what to monitor for. She will let me know if she is unable to tolerate these medications. We will see patient back in 1 month for follow-up. Orders Placed This Encounter gabapentin (NEURONTIN) 100 MG capsule magnesium 250 MG tablet mirtazapine (REMERON) 15 MG tablet Cannot display discharge medications since this is not an admission. PCP: YOBANI Cruz 12/11/2022 documented in this encounter Plan of Treatment Upcoming Encounters Date Type Department Care Team (Late st Contact Info) Description 07/25/2024 10:00 AM MANAGER OB Office Visit [facility] Family & Internal Medicine - [address] [phone] Keyonna Armstrong APNP [address] [place] [address] 07/31/2024 10:15 AM MANAGER OB Office Visit [facility] [address] [place], [place] [phone] Pepe Mitchell MD [facility]. [facility] [address] [place], [place] [id number] documented as of this encounter Visit Diagnoses Diagnosis Primary insomnia- Primary Persistent disorder of initiating or maintaining sleep documented in this encounter Additional Health Concerns Assessment Noted Time PHQ-9 Depression Total Score: 22 020 3:46 PM MANAGER OB documented as of this encounter Care Teams Broadcast Systems Engineer Relationship Specialty Start Date End Date Keyonna Armstrong APNP [address] [place] [address] PCP - General NURSE PRACTITIONER 05/06/18 documented as of this encounter
--- OUTSIDE RECORDS SUMMARY | 2024-07-10 22:58 | XMS_ITS | Encounter Summary ---
Author Organization [facility] Address [address] [place] [address]. [place] [id number] [place] [address] Care Team Providers Care Center Director Lead Teacher Name Role Phone Keyonna Armstrong Primary Care Provider [phone] Reason for Visit * Reason Comments Hypertension Encounter Details Date Type Department Care Team (Late st Contact Info) Description 07/20/2022 12:20 PM MANAGER TRADE Office Visit [facility] Family & Internal Medicine [facility] [address] [place] [phone] Keyonna Armstrong APNP [facility], [place] [id number] Hypertension Social History Tobacco Use Types Packs/Day [...] Gender Identity Female 07/17/2022 10:27 AM MANAGER TRADE Sexual Orientation Straight 07/17/2022 10 :27 AM MANAGER TRADE COVID-19 Exposure Response Date Recorded In the last 10 days, have yo u been in contact with someone who was confirmed or suspected to have Coronavirus/COVID-19? No / Unsure 07/20/2022 12:13 PM MANAGER TRADE documented as of this encounter Last Filed Vital Signs Vital Sign Reading Time Taken Comments Blood Pressure 132/82 07/20/2022 1:22 PM MANAGER TRADE Pulse 112 07/20/2022 12:26 PM MANAGER TRADE Temperature 36.3 ??C (97.4 ??F) 07/20/2022 12:[address] Respiratory Rate 16 07/20/2022 12:26 PM MANAGER TRADE Oxygen Saturation 97% 07/20/2022 12:26 PM MANAGER TRADE Inhaled Oxygen Concentration - - Weight 133.4 kg (294 lb) 07/20/2022 12:26 PM MANAGER TRADE Height 165.1 cm (5' 5) 07/20/2022 12:26 PM MANAGER TRADE Body Mass Index 48.92 07/20/2022 12:26 PM MANAGER TRADE documented in this encounter Progress Notes * YOBANI Cruz - 07/20/2022 12:20 PM CST Images from the original note were not included. [facility] FAMILY AND INTERNAL MEDICINE OFFICE VISIT Reason for Visit: Hypertension History of Present Illness: 51 yo female here today to follow up on her chronic health conditions. ?? Obstructive sleep apnea -patient wears her CPAP nightly. She is still having issues with her face mask. Would like to change to nasal pillows if possible. Will check on her supplier. ?? Hypertension -blood pressure elevated initially today. Denies any bothersome side effects. Denies any chest pain, shortness of breath, headache, dizziness, heart palpitations or lower extremity edema. BP is elevated at today's visit-- did not take all of her meds this morning. She admits to drinking no water throughout the day. We discussed this may contribute to her tachycardia. ?? Obesity -patient aware of her weight and a chronic health problems surrounding obesity. Did see a weight loss doctor last month and was started on phentermine---she states she has not started this yet. She is up 11 lbs since her last visit with me. ?? Anxiety /depression -patient continues to follow with Shontel Ray, PMHNP. Tolerates her medicationswell and feels both her anxiety and depression are currently controlled. Denies any HI/SI. ?? Insomnia -patient currently takes zolpidem 10 mg as needed to help with sleep. She tolerates this medication well and denies any bothersome side effects. She is aware of potential long-term effects of daily use of zolpidem. Would like to continue. She has tried trazodone in the past, but did not like. CSA UTD. ?? Adrenal adenoma -she has previously seen endocrinology and actually referred her back to endocrinology in December 2018 and again in 09/2020. According to pt, she did have an appointment with Sury Rivasendocrinology. Will attempt to review these notes. Pt states she was told to take something over the counter for her thyroid. Tachycardia - ??This is not a new finding and I have previously sent her to endocrinology for this as she also had an adrenal adenoma. She was somewhat non compliant with her follow up. According to pt, she has most recently Dr. Sury Rivas, however no date given and I do not have any recent OV notes. She is due for routine fasting labs and these can be ordered today. ROS: Review of Systems Constitutional: Negative for chills and fever. Respiratory: Negative for cough and shortness of breath. Cardiovascular: Negative for chest pain, palpitations and leg swelling. Gastrointestinal: Negative for abdominal pain, diarrhea, nausea and vomiting. Neurological: Negative for dizziness and headaches. Psychiatric/Behavioral: Positive for depression. Negative for suicidal ideas. The patient has insomnia. The patient is not nervous/anxious. Medications: Current Outpatient Medications: ??? albuterol sulfate HFA 108 (90 Base) MCG/ACT inhaler, TAKE 2 PUFFS BY MOUTH EVERY 4 HOURS NEEDED FOR WHEEZING, Disp: , Rfl: ??? amLODIPine (NORVASC) 5 MG tablet, Take 1 tablet (5 mg total) by mouth daily., Disp: 30 tablet, Rfl: 1 ??? buPROPion SR (WELLBUTRIN SR) 150 MG 12 hr tablet, TAKE 1 TABLET BY MOUTH TWICE A DAY, Disp: 180tablet, Rfl: 0 ??? cyclobenzaprine (FLEXERIL) 10 MG tablet, TAKE 1 TABLET BY MOUTH THREE TIMES A DAY NEEDED FORMUSCLE SPASM, Disp: , Rfl: ??? diclofenac sodium 1 % gel, Apply 4 g topically 4 (four) times daily., Disp: 50 g, Rfl: 1 ??? FLUTICASONE PROPIONATE 50 MCG/ACT nasal spray, SPRAY 1 SPRAY INTO EACH NOSTRIL EVERY DAY, Disp:48 mL, Rfl: 1 ??? gabapentin (NEURONTIN) 100 MG capsule, Take 100 mg by mouth 3 (three) times daily., Disp: , Rfl: ??? hydroCHLOROthiazide (HYDRODIURIL) 25 MG tablet, TAKE 1 TABLET BY MOUTH EVERY DAY, Disp: 90 tablet, Rfl: 0 ??? ibuprofen (MOTRIN) 800 MG tablet, TAKE 1 TABLET BY MOUTH EVERY 12 HOURS NEEDED FOR PAIN, Disp: 90 tablet, Rfl: 2 ??? lisinopril (PRINIVIL) 40 MG tablet, TAKE 1 TABLET BY MOUTH EVERY DAY, Disp: 90 tablet, Rfl: 1 ??? lorazepam 1 MG tablet, Take 1 mg by mouth every 8 (eight) hours as needed for Anxiety (regularly takes 3 tabs daily). , Disp: , Rfl: ??? metFORMIN (GLUCOPHAGE) 500 MG tablet, TAKE 1 TABLET BY MOUTH EVERY MORNING, 2 TABLETS AT BEDTIME, Disp: 270 tablet, Rfl: 1 ??? METOPROLOL SUCCINATE ER 100 MG 24 hr tablet, TAKE 1 TABLET BY MOUTH EVERY DAY, Disp: 90 tablet,Rfl: 1 ??? MIMVEY 1-0.5 MG Tab, Take 1 tablet by mouth daily., Disp: , Rfl: ??? Multiple Vitamin (MULTI-VITAMIN) tablet, Take 1 tablet by mouth daily., Disp: , Rfl: ??? ondansetron 4 MG tablet, TAKE 1 TABLET BY MOUTH EVERY 6 HOURS NEEDED FOR NAUSEA/VOMITING, Disp: , Rfl: 1 ??? pantoprazole EC (PROTONIX) 20 MG tablet, Take 1 tablet (20 mg total) by mouth daily. Patient must be seen for further refills, Disp: 90 tablet, Rfl: 0 ??? pantoprazole EC 20 MG tablet, 20 mg., Disp: , Rfl: ??? Phentermine HCl 15 MG Cap, Take 1 capsule by mouth every morning., Disp: , Rfl: ??? venlafaxine XR (EFFEXOR-XR) 75 MG 24 hr capsule, Take on capsule by mouth every morning and take two capsules every evening. Patient must be seen for further refills., Disp: 270 capsule, Rfl: 0 ??? zolpidem (AMBIEN) 10 MG tablet, Take 1 tablet (10 mg total) by mouth nightly as needed for Sleep., Disp: 30 tablet, Rfl: 1 ??? LARISSIA 0.1-20 MG-MCG tablet, , Disp: , Rfl: ??? methocarbamol (ROBAXIN) 750 MG Tab, TAKE 1 TO 2 TABLETS BY MOUTH 3 TIMES A DAY NEEDED (Patient not taking: Reported on 07/20/2022), Disp: 180 tablet, Rfl: 0 ??? simethicone 80 MG chewable tablet, 80 mg 4 (four) times daily. (Patient not taking: Reported on07/20/2022), Disp: , Rfl: ??? vitamin D3, cholecalciferol, (CHOLECALCIFEROL) 5000 UNITS capsule, Take 5,000 Units by mouth daily. (Patient not taking: Reported on 07/20/2022), Disp: , Rfl: Allergies: Allergies Allergen Reactions ??? Trazodone Hallucinations Medical History: Past Medical History: Diagnosis Date ??? Adrenal adenoma 10/11/2017 ??? Anxiety 09/20/2017 ??? Cholecystitis 06/11/2018 ??? Depression 06/19/2012 ??? Diabetes mellitus (CMS/HCC) ??? Esophageal reflux 04/22/2013 ??? Hypertension 06/19/2012 ??? Insomnia 04/02/2018 ??? Menorrhagia 04/02/2018 ??? Morbid obesity (CMS/HCC) 09/23/2013 ??? Obstructive sleep apnea 08/02/2012 ??? Sinus tachycardia 09/20/2017 Surgical History: Past Surgical History: Procedure Laterality Date ??? CHOLECYSTECTOMY ??? COLONOSCOPY N/A 01/12/2020 COLONOSCOPY SCREENING performed by Burt Payne MD at [facility] ??? GASTRIC BYPASS N/A 2004 Social History: Social History Socioeconomic History ??? Marital status: Tobacco Use ??? Smoking status: Never ??? Smokeless tobacco: Never Vaping Use ??? Vaping Use: Never used Substance and Sexual Activity ??? Alcohol use: No ??? Drug use: No ??? Sexual activity: Yes Partners: Male Family History: Family History Problem Relation Name Age of Onset ??? Liver Disease Mother ??? Hypertension Mother ??? Diabetes Father ??? Thyroid Sister ??? Liver Disease Brother ??? Stroke Maternal Grandmother PE: Physical Exam Vitals and nursing note reviewed. HENT: Head: Normocephalic and atraumatic. Mouth/Throat: Mouth: Mucous membranes are moist. Eyes: General: No scleral icterus. Conjunctiva/sclera: Conjunctivae [...] Affect: Mood and affect normal. Filed Vitals: 07/20/22 1226 07/20/22 1322 BP: (!) 161/70 132/82 Pulse: 112 Resp: 16 Temp: 97.4 ??F (36.3 ??C) SpO2: 97% Weight: 133.4 kg (294 lb) Height: 5' 5 (1.651 m) Labs: Labs Reviewed Diagnoses/Impression: 1. Obstructive sleep apnea Chronic CBC W/DIFF AUTOMATED COMPREHENSIVE METABOLIC PANEL 2. Primary insomnia Chronic TSH W/REFLEX zolpidem (AMBIEN) 10 MG tablet 3. Recurrent major depressive disorder, in partial remission (CMS/HCC) Chronic 4. Anxiety Chronic TSH W/REFLEX 5. Primary hypertension TSH W/REFLEX URINALYSIS WI REFLEX TO CULTURE COMPREHENSIVE METABOLIC PANEL amLODIPine (NORVASC) 5 MG tablet 6. Adenoma of left adrenal gland Chronic 7. Dyslipidemia Chronic LIPID PANEL COMPREHENSIVE METABOLIC PANEL Recommendations and Plan: 1. Obstructive sleep apnea - CBC W/DIFF AUTOMATED; Future - COMPREHENSIVE METABOLIC PANEL; Future - CBC W/DIFF AUTOMATED - COMPREHENSIVE METABOLIC PANEL Continue use of CPAP for now. Pt is to provide us with name of her CPAP supplier. 2. Primary insomnia - TSH W/REFLEX; Future - TSH W/REFLEX - zolpidem (AMBIEN) 10 MG tablet; Take 1 tablet (10 mg total) by mouth nightly as needed for Sleep.Dispense: 30 tablet; Refill: 1 Stable. Continue meds 3. Recurrent major depressive disorder, in partial remission (CMS/HCC) Stable. Continue meds 4. Anxiety - TSH W/REFLEX; Future - TSH W/REFLEX Stable. Continue meds 5. Primary hypertension - TSH W/REFLEX; Future - URINALYSIS WI REFLEX TO CULTURE; Future - COMPREHENSIVE METABOLIC PANEL; Future - TSH W/REFLEX - URINALYSIS WI REFLEX TO CULTURE - COMPREHENSIVE METABOLIC PANEL - amLODIPine (NORVASC) 5 MG tablet; Take 1 tablet (5 mg total) by mouth daily. Dispense: 30 tablet;Refill: 1 BP elevated initially, improved upon recheck 6. Adenoma of left adrenal gland I would like to see recent endo OV notes---discussed importance of endo follow up with pt. 7. Dyslipidemia - LIPID PANEL; Future - COMPREHENSIVE METABOLIC PANEL; Future - LIPID PANEL - COMPREHENSIVE METABOLIC PANEL Stable. Continue meds. Orders Placed This Encounter ??? CBC W/DIFF AUTOMATED ??? LIPID PANEL ??? TSH W/REFLEX ??? URINALYSIS WI REFLEX TO CULTURE ??? COMPREHENSIVE METABOLIC PANEL ??? Phentermine HCl 15 MG Cap ??? MIMVEY 1-0.5 MG Tab ??? gabapentin (NEURONTIN) 100 MG capsule ??? cyclobenzaprine (FLEXERIL) 10 MG tablet ??? zolpidem (AMBIEN) 10 MG tablet ??? amLODIPine (NORVASC) 5 MG tablet Cannot display discharge medications since this is not an admission. PCP: YOBANI Cruz 07/25/2022 Cosigned by Kel Solo MD at 07/25/2022 9:47 PM MANAGER TRADE GER TRADE GER TRADE documented in this encounter Plan of Treatment Upcoming Encounters Date Type Department Care Team (Late st Contact Info) Description 07/25/2024 10:00 AM MANAGER TRADE Office Visit [facility] Family & Internal Medicine - [place] [address] [place] [address] Keyonna Armstrong APNP [address] [place] [address] 07/31/2024 10:15 AM MANAGER TRADE Office Visit [facility], [place] [address] [place], [place] [phone] Pepe Mitchell MD [facility]. [place] [address] [place], [place] [id number] documented as of this encounter Procedures Procedure Name Priority Date/Time Associated Diagnosis Comments URINALYSIS WI REFLEX TO CULTURE Routine 09/29/2022 7:55 AM MANAGER TRADE Primary hypertension TSH W/REFLEX Routine 09/29/2022 7:55 AM MANAGER TRADE Primary insomnia Anxiety Primary hypertension COMPREHENSIVE METABOLIC PANEL Routine 09/29/2022 7:55 AM MANAGER TRADE Obstructive sleep apnea Primary hypertension Dyslipidemia LIPID PANEL Routine 09/29/2022 7:55 AM MANAGER TRADE Dyslipidemia CBC W/DIFF AUTOMATED Routine 09/29/2022 7:55 AM MANAGER TRADE Obstructive sleep apnea documented in this encounter Results * COMPREHENSIVE METABOLIC PANEL (09/29/2022 7:55 AM MANAGER TRADE) [facility] GLUCOSE 97 65 - 99 mg/dL [facility] Comment: ? Fasting reference interval BUN 16 7 - 25 mg/dL [facility] CREATININE S/P/B 0.69 0.50 - 1.03 mg/dL [facility] GFR ESTIMATE 103 > OR = 60 mL/min/1 .73m2 [facility] Comment: The eGFR is based on the CKD-EPI 2020 equation. To calculate the new eGFR from a previous Creatinine or Cystatin C result, go to https://www.kidney.org/professionals/ kdoqi/gfr%5Fcalculator BUN CREATININE RATIO NOT APPLICABLE 6 - 22 (calc) [facility] SODIUM S/P/B 140 135 - 146 mmol/L [facility] POTASSIUM S/P/B 4.1 3.5 - 5.3 mmol/L [facility] CHLORIDE S/P/B 100 98 - 110 mmol/L [facility] CO2 31 20 - 32 mmol/L [facility] CALCIUM S/P/B 9.9 8.6 - 10.4 mg/dL [facility] TOTAL PROTEIN S/P/B 7.2 6.1 - 8.1 g/dL [facility] ALBUMIN S/P/B 4.3 3.6 - 5.1 g/dL [facility] GLOBULIN 2.9 1.9 - 3.7 g/dL (calc) [facility] ALBUMIN/GLOBULI N RATIO 1.5 1.0 - 2.5 (calc) [facility] BILIRUBIN TOTAL S/P/B 0.4 0.2 - 1.2 mg/dL [facility] [employer] [facility] ALKALINE PHOSPHATASE S/P/B 101 37 - 153 U/L [facility] AST 21 10 - 35 U/L [facility] ALT 27 6 - 29 U/L [facility] 09/29/2022 7:55 AM MANAGER TRADE 09/30/2022 3:53 AM MANAGER TRADE Narrative Resulting Agency Comment Performing Organization Information: ?Site ID: CT ?Name: [facility] ?Address: [address] [place] [address] ?Director: Josiah Jones MD us Keyonna [facility] Final Resul t [facility] [address] [place] [address], DX * (ABNORMAL) URINALYSIS WI REFLEX TO CULTURE (09/29/2022 7:55 AM MANAGER TRADE) COLOR (U) YELLOW YELLOW [facility] APPEARANCE SEMEN CLEAR CLEAR [facility] SPECIFIC GRAVITY (U) 1.011 1.001 - 1.035 [facility] PH (U) 7.0 5.0 - 8.0 [facility] URINE GLUCOSE NEGATIVE NEGATIVE [facility] BILIRUBIN (U) NEGATIVE NEGATIVE [facility] KETONE (U) NEGATIVE NEGATIVE [facility] BLOOD (U) NEGATIVE NEGATIVE [facility] PROTEIN (U) NEGATIVE NEGATIVE [facility] NITRITES NEGATIVE NEGATIVE [facility] LEUKOCYTES (U) NEGATIVE NEGATIVE [facility] WBC/HPF NONE SEEN < OR = 5 /HPF [facility] RBC/HPF NONE SEEN < OR = 2 /HPF [facility] SQUAMOUS EPITHELIAL (U) 6-10(A) < OR = 5 /HPF [facility] BACTERIA (U) NONE SEEN NONE SEEN /HPF [facility] HYALINE CASTS NONE SEEN NONE SEEN /LPF [facility] REFLEX URINE CULTURE: [facility] Comment:NO CULTURE INDICATED URINE SPECIMEN OBTAINED BY CLEAN CATCH PROCEDURE / Unknown 09/29/2022 7:55 AM MANAGER TRADE 09/30/2022 5:15 AM MANAGER TRADE Narrative Resulting Agency Comment Performing Organization Information: ?Site ID: CT ?Name: [employer] ?Address: [address] [place] [address] ?Director: Josiah Jones MD Keyonna [facility] ORDERABLES Final Resu lt [facility] YEFRI ORDERS [facility] [address] * TSH W/REFLEX (09/29/2022 7:55 AM MANAGER TRADE) TSH 1.73 mIU/L [facility] Comment: ?Reference Range ?> or = 20 Years ??0.40-4.50 ? Ranges ?First trimester ?0.26-2.66 ?Second trimester ?? 0.55-2.73 ?Third trimester ?0.43-2.91 09/29/2022 7:55 AM MANAGER TRADE 09/30/2022 3:53 AM MANAGER TRADE Narrative Resulting Agency Comment Performing Organization Information: ?Site ID: CT ?Name: Gerry Hutchison ?Address: [address] [place] [address] ?Director: Josiah Jones MD us Keyonna [facility] Final Resul t GERRY CID [facility] [address] [place] [address], * (ABNORMAL) LIPID PANEL (09/29/2022 7:55 AM MANAGER TRADE) CHOLESTEROL 181 <200 mg/dL [facility] HDL 57 > OR = 50 mg/dL [facility] TRIGLYCERIDES 192(H) <150 mg/dL [facility] LDL (CALCULATED) 95 mg/dL (calc) [facility] Comment: Reference range: <100 Desirable range <100 mg/dL for primary prevention; ?? <70 mg/dL for patients with CHD or diabetic patients with > or = 2 CHD risk factors. LDL-C is now calculated using the Deep-Laya calculation, which is a validated novel method providing better accuracy than the Friedewald equation in the estimation of LDL-C. Deep GREER et al. JAMAR. 2013;310(19): 9184-3368 (http://education.[employer].Evogen/faq/YFF077) CHOL/HDL RATIO 3.2 <5.0 (calc) [facility] NON HDL CHOLESTEROL 124 <130 mg/dL (calc) [facility] Comment: For patients with diabetes plus 1 major ASCVD risk factor, treating to a non-HDL-C goal of <100 mg/dL (LDL-C of <70 mg/dL) is considered a therapeutic option. 09/29/2022 7:55 AM MANAGER TRADE 09/30/2022 3:53 AM MANAGER TRADE Narrative Resulting Agency Comment Performing Organization Information: ?Site ID: [place] ?Name: Gerry Hutchison ?Address: [address] [address] ?Director: Josiah Jones MD us Keyonna [facility] Final Resul t GERRY CID [facility] [id number] [address], * (ABNORMAL) CBC W/DIFF AUTOMATED (09/29/2022 7:55 AM MANAGER TRADE) WBC 12.1(H) 3.8 - 10.8 Thousand/ uL [facility] RBC 4.57 3.80 - 5.10 Million/u L [facility] HGB 14.4 11.7 - 15.5 g/dL [facility] HCT 43.0 35.0 - 45.0 % [facility] MCV 94.1 80.0 - 100.0 fL [facility] MCH 31.5 27.0 - 33.0 pg [facility] MCHC 33.5 32.0 - 36.0 g/dL [facility] RDW 15.8(H) 11.0 - 15.0 % [facility] PLT 368 140 - 400 Thousand/ uL [facility] MPV 9.1 7.5 - 12.5 fL [facility] ABS. NEUTROPHILS 5,748 1,500 - 7,800 cells/uL [facility] ABS. LYMPHOCYTES 5,118(H) 850 - 3,900 cells/uL [facility] ABS. MONOCYTES 1,101(H) 200 - 950 cells/uL [facility] ABS. EOSINOPHILS 85 15 - 500 cells/uL [facility] ABS. BASOPHILS 48 0 - 200 cells/uL [facility] SEG NEUTROPHILS 47.5 % [facility] LYMPHOCYTES 42.3 % [facility] MONOCYTES 9.1 % [facility] EOSINOPHILS 0.7 % [facility] BASOPHILS 0.4 % [facility] 09/29/2022 7:55 AM MANAGER TRADE 09/30/2022 3:53 AM MANAGER TRADE Narrative Resulting Agency Comment Performing Organization Information: ?Site ID: RICH ?Name: Gerry Hutchison ?Address: [address] [address] ?Director: Josiah Jones MD us Keyonna [facility] Final Resul t [facility] - YEF[facility] ORDERS [facility] [address] [place] [address], documented in this encounter Visit Diagnoses Diagnosis Obstructive sleep apnea- Primary Obstructive sleep apnea (adult) (pediatric) Primary insomnia Persistent disorder of initiating or maintaining sleep Recurrent major depressive disorder, in partial remission (CMS/HCC) Anxiety Anxiety state, unspecified Primary hypertension Unspecified essential hypertension Adenoma of left adrenal gland Benign neoplasm of adrenal gland Dyslipidemia Other and unspecified hyperlipidemia documented in this encounter Additional Health Concerns Assessment Noted Time PHQ-9 Depression Total Score: 22 020 3:46 PM MANAGER TRADE documented as of this encounter Care Teams Center Director Lead Teacher Relationship Specialty Start Date End Date Keyonna Armstrong APNP [address] [place] [id number] PCP - General NURSE PRACTITIONER 05/06/18 documented as of this encounter
--- OUTSIDE RECORDS SUMMARY | 2024-07-10 22:58 | XMS_ITS | Encounter Summary ---
Author Organization [facility] Address [address] [place] [address]. [place], [place] [address] [place] [address] Care Team Providers Care Quality Systems Manager Name Role Phone Keyonna Armstrong Primary Care Provider [phone] Encounter Details Date Type Department Care Team (Latest Contact Info) Description 02/26/2023 Scan HEALTH INFO SRVCS Scanned, Doc Med [...] CDT Gender Identity Female 07/17/2022 10:27 AM NOC ENGINEER Sexual Orientation Straight 07/17/2022 10 :27 AM NOC ENGINEER documented as of this encounter Plan of Treatment Upcoming Encounters Date Type Department Care Team ( Contact Info) Description 07/25/2024 10:00 AM NOC ENGINEER Office Visit [facility] Medical Group Family & Internal Medicine [address] [address] Keyonna Armstrong APNP [address] [place] [address] 07/31/2024 10:15 AM NOC ENGINEER Office Visit [facility] [address] [place], [place] [address] Pepe Mitchell MD Three [facility]. [facility] [address] [place] [address] documented as of this encounter Visit Diagnoses Not on filedocumented in this encounter Additional Health Concerns Assessment Noted Time PHQ-9 Depression Total Score: 22 020 3:46 PM NOC ENGINEER documented as of this encounter Care Teams Quality Systems Manager Relationship Specialty Start Date End Date Keyonna Armstrong APNP [address] [place] [address] PCP - General NURSE PRACTITIONER 05/06/18 documented as of this encounter
--- OUTSIDE RECORDS SUMMARY | 2024-07-10 22:58 | XMS_ITS | Encounter Summary ---
Author Organization [facility] Address [facility]. [place], [place] [address] [place] [address] Care Team Providers Care Shaping Machine Operator Name Role Phone Keyonna Armstrong Primary Care Provider [phone] Reason for Referral * Consultation (Routine) - Closed Specialty Diagnoses / Procedures Referred By Lee t Referred To Contact OBGYN Diagnoses Well woman exam Keyonna Armstrong APNP [address] [place] [address] Phone: tel: fax: Mariluz Campbell MD [address] [place] [phone] Phone: tel: fax: Referral ID Status Reason Start Date Expiration Date V isits Requested Visits Authorized [id number] Closed Specialty Services 01/13/2022 07/12/2022 6 6 Reason for Visit * Reason Onset Date Comments Referral 01/06/2022 Encounter Details Date Type Department Care Team (Late st Contact Info) Description 01/06/2022 Telephone [facility] Family & Internal Medicine - [place] [address] [place] [address] Keyonna Armstrong APNP [address] [place] [address] Referral Social History Tobacco Use Types Packs/Day [...] CDT Gender Identity Female 07/17/2022 10:27 AM AMUSEMENT OR RECREATION CARD CHECKER Sexual Orientation Straight 07/17/2022 10 :27 AM AMUSEMENT OR RECREATION CARD CHECKER COVID-19 Exposure Response Date Recorded In the last 10 days, have yo u been in contact with someone who was confirmed or suspected to have Coronavirus/COVID-19? No / Unsure 12/20/2021 10:00 AM CDT documented as of this encounter Progress Notes * Nenita Young MA - 01/06/2022 10:49 AM CDT Referral placed 01/06/22 * OYBANI Cruz - 01/06/2022 10:47 AM CDT yes * Nenita Young MA - 01/06/2022 10:45 AM CDT Ok for referral? * Ne Mueller - 01/06/2022 10:41 AM CDT Pt would like a referral to see a mercantile agent documented in this encounter Plan of Treatment Upcoming Encounters Date Type Department Care Team (Late st Contact Info) Description 07/25/2024 10:00 AM AMUSEMENT OR RECREATION CARD CHECKER Office Visit [facility] Family & Internal Medicine - [place] [address] [place] [address] Keyonna Armstrong APNP [address] [place] [address] 07/31/2024 10:15 AM AMUSEMENT OR RECREATION CARD CHECKER Office Visit [facility] THREE [facility], [facility] [address] [place], [place] [id number] Pepe Mitchell MD Three [facility]. [facility] [address] [place] [address] Scheduled Referrals Name Type Priority Associated Diagnoses Orde r Schedule Ambulatory referral to Obstetrics/Gynecology (OTHER) Referral Routine Well woman exam Ordered: 01/06/2022 documented as of this encounter Visit Diagnoses Diagnosis Well woman exam- Primary Routine general medical examination at a health care facility documented in this encounter Additional Health Concerns Assessment Noted Time PHQ-9 Depression Total Score: 22 020 3:46 PM AMUSEMENT OR RECREATION CARD CHECKER documented as of this encounter Care Teams Shaping Machine Operator Relationship Specialty Start Date End Date Keyonna Armstrong APNP [facility] [place] [address] PCP - General NURSE PRACTITIONER 05/06/18 documented as of this encounter
--- OUTSIDE RECORDS SUMMARY | 2024-07-10 22:58 | XMS_ITS | Encounter Summary ---
Author Organization [facility] Address [address] [place] [address]. [place], [place] [address] [place] [address] Care Team Providers Care Kiln Remover Name Role Phone Keyonna Armstrong Primary Care Provider [phone] Encounter Details Date Type Department Care Team (Latest Contact Info) Description 09/27/2022 Scan [facility] INFO SRVCS Scanned, Doc [...] CDT Gender Identity Female 07/17/2022 10:27 AM LABORER WOOD PRESERVING PLANT Sexual Orientation Straight 07/17/2022 10 :27 AM LABORER WOOD PRESERVING PLANT COVID-19 Exposure Response Date Recorded In the last 10 days, have yo u been in contact with someone who was confirmed or suspected to have Coronavirus/COVID-19? No / Unsure 09/29/2022 7:45 AM LABORER WOOD PRESERVING PLANT documented as of this encounter Plan of Treatment Upcoming Encounters Date Type Department Care Team (Late st Contact Info) Description 07/25/2024 10:00 AM LABORER WOOD PRESERVING PLANT Office Visit [facility] Family & Internal Medicine - [place] [address] [place] [address] Keyonna Armstrong APNP [address] [place] [address] 07/31/2024 10:15 AM LABORER WOOD PRESERVING PLANT Office Visit [facility], [facility] [address] [place] [address] Pepe Mitchell MD Three [facility]. [facility] [address] [place], [place] [id number] documented as of this encounter Visit Diagnoses Not on filedocumented in this encounter Additional Health Concerns Assessment Noted Time PHQ-9 Depression Total Score: 22 020 3:46 PM LABORER WOOD PRESERVING PLANT documented as of this encounter Care Teams Kiln Remover Relationship Specialty Start Date End Date Keyonna Armstrong APNP [address] [place] [address] PCP - General NURSE PRACTITIONER 05/06/18 documented as of this encounter
--- OUTSIDE RECORDS SUMMARY | 2024-07-10 22:58 | XMS_ITS | Encounter Summary ---
Author Organization [facility] Address [address] [place] [address]. [place], [place] [address] [place] [address] Care Team Providers Care Algorithm Design Engineer Name Role Phone Keyonna Armstrong Primary Care Provider [phone] Encounter Details Date Type Department Care Team (Latest Contact Info) Description 08/27/2023 Scan HEALTH INFO SRVCS Scanned, Doc Med [...] CDT Gender Identity Female 07/17/2022 10:27 AM PROOF LOAD MECHANIC Sexual Orientation Straight 07/17/2022 10 :27 AM PROOF LOAD MECHANIC documented as of this encounter Plan of Treatment Upcoming Encounters Date Type Department Care Team ( Contact Info) Description 07/25/2024 10:00 AM PROOF LOAD MECHANIC Office Visit [facility] Family & Internal Medicine [address] [address] Keyonna Armstrong APNP [address] [place] [address] 07/31/2024 10:15 AM PROOF LOAD MECHANIC Office Visit [facility] THREE [facility], [facility] [address] [place], [place] [address] Pepe Mitchell MD Three [facility]. [facility] [address] [place] [address] documented as of this encounter Visit Diagnoses Not on filedocumented in this encounter Additional Health Concerns Assessment Noted Time PHQ-9 Depression Total Score: 22 020 3:46 PM PROOF LOAD MECHANIC documented as of this encounter Care Teams Algorithm Design Engineer Relationship Specialty Start Date End Date Keyonna Armstrong APNP [address] [place] [address] PCP - General NURSE PRACTITIONER 05/06/18 documented as of this encounter
--- OUTSIDE RECORDS SUMMARY | 2024-07-10 22:58 | XMS_ITS | Encounter Summary ---
Author Organization [facility] Address [address] [place] [address]. [place] [id number] [place] [address] Care Team Providers Care Dredge Mate Name Role Phone Keyonna Armstrong Primary Care Provider [phone] Reason for Visit * Reason Onset Date Comments Other 01/06/2022 Encounter Details Date Type Department Care Team (Late st Contact Info) Description 01/06/2022 Telephone [facility] Family & Internal Medicine [facility] [place] [facility] [address] [place] [address] Keyonna Armstrong APNP [address] [place] [address] Other Social History Tobacco Use [...] CDT Gender Identity Female 07/17/2022 10:27 AM REGULATOR MECHANIC Sexual Orientation Straight 07/17/2022 10 :27 AM REGULATOR MECHANIC COVID-19 Exposure Response Date Recorded In the last 10 days, have yo u been in contact with someone who was confirmed or suspected to have Coronavirus/COVID-19? No / Unsure 12/20/2021 10:00 AM CDT documented as of this encounter Plan of Treatment Upcoming Encounters Date Type Department Care Team (Late st Contact Info) Description 07/25/2024 10:00 AM REGULATOR MECHANIC Office Visit [facility] Family & Internal Medicine [facility] [place] [facility] [address] [place] [address] Keyonna Armstrong APNP [address] [place] [address] 07/31/2024 10:15 AM REGULATOR MECHANIC Office Visit [facility] [address] [place] [address] Pepe Mitchell MD Three [facility]. [facility] [address] [place] [address] documented as of this encounter Visit Diagnoses Not on filedocumented in this encounter Additional Health Concerns Assessment Noted Time PHQ-9 Depression Total Score: 22 020 3:46 PM REGULATOR MECHANIC documented as of this encounter Care Teams Dredge Mate Relationship Specialty Start Date End Date Keyonna Armstrong APNP [facility] [place] [address] PCP - General NURSE PRACTITIONER 05/06/18 documented as of this encounter
--- OUTSIDE RECORDS SUMMARY | 2024-07-10 22:58 | XMS_ITS | Encounter Summary ---
Author Organization [facility] Address [address] [place] [address]. [place], [place] [address] [place] [address] Care Team Providers Care Asset Liability Analyst Name Role Phone Keyonna Armstrong Primary Care Provider [phone] Encounter Details Date Type Department Care Team (Latest Contact Info) Description 12/20/2021 Travel Social History Tobacco Use Types Packs/Day [...] CDT Gender Identity Female 07/17/2022 10:27 AM SLUBBER OPERATOR Sexual Orientation Straight 07/17/2022 10 :27 AM SLUBBER OPERATOR COVID-19 Exposure Response Date Recorded In the last 10 days, have yo u been in contact with someone who was confirmed or suspected to have Coronavirus/COVID-19? No / Unsure 12/20/2021 10:00 AM CDT documented as of this encounter Plan of Treatment Upcoming Encounters Date Type Department Care Team (Late Contact Info) Description 07/25/2024 10:00 AM SLUBBER OPERATOR Office Visit [facility] Family & Internal Medicine - [place] [address] [place] [address] Keyonna Armstrong APNP [address] [place] [address] 07/31/2024 10:15 AM SLUBBER OPERATOR Office [facility] [address] [place] [address] Pepe Mitchell MD Three [facility]. [facility] [address] [place] [address] documented as of this encounter Visit Diagnoses Not on filedocumented in this encounter Additional Health Concerns Assessment Noted Time PHQ-9 Depression Total Score: 22 020 3:46 PM SLUBBER OPERATOR documented as of this encounter Care Teams Asset Liability Analyst Relationship Specialty Start Date End Date Keyonna Armstrong APNP [address] [place] [address] PCP - General NURSE PRACTITIONER 05/06/18 documented as of this encounter
--- OUTSIDE RECORDS SUMMARY | 2024-07-10 22:58 | XMS_ITS | Encounter Summary ---
Author Organization [facility] Address [address] [place] [address]. [place], [place] [address] [place] [address] Care Team Providers Care Postdoctoral Fellow Name Role Phone Keyonna Armstrong Primary Care Provider [phone] Encounter Details Date Type Department Care Team (Latest Contact Info) Description 07/26/2023 Scan HEALTH INFO SRVCS Scanned, Doc Med [...] CDT Gender Identity Female 07/17/2022 10:27 AM SUPERVISOR INDUSTRIAL GARMENT Sexual Orientation Straight 07/17/2022 10 :27 AM SUPERVISOR INDUSTRIAL GARMENT documented as of this encounter Plan of Treatment Upcoming Encounters Date Type Department Care Team ( Contact Info) Description 07/25/2024 10:00 AM SUPERVISOR INDUSTRIAL GARMENT Office Visit [facility] Group Family & Internal Medicine [address] [address] Keyonna Armstrong APNP [address] [place] [address] 07/31/2024 10:15 AM SUPERVISOR INDUSTRIAL GARMENT Office [facility] THREE [facility], [facility] [address] [place], [place] [address] Pepe Mitchell MD Three [facility]. [facility] [address] [place] [address] documented as of this encounter Visit Diagnoses Not on filedocumented in this encounter Additional Health Concerns Assessment Noted Time PHQ-9 Depression Total Score: 22 020 3:46 PM SUPERVISOR INDUSTRIAL GARMENT documented as of this encounter Care Teams Postdoctoral Fellow Relationship Specialty Start Date End Date Keyonna Armstrong APNP [address] [place] [address] PCP - General NURSE PRACTITIONER 05/06/18 documented as of this encounter
--- OUTSIDE RECORDS SUMMARY | 2024-07-10 22:58 | XMS_ITS | Encounter Summary ---
Author Organization [facility] Address [facility]. [place], [place] [address] [place] [address] Care Team Providers Care Infant Caregiver Name Role Phone Keyonna Armstrong Primary Care Provider [phone] Reason for Referral * Consultation (Routine) - Closed Specialty Diagnoses / Procedures Referred By Lee saunders Referred To Contact DERMATOLOGY Diagnoses Change in facial mole Keyonna Armstrong APNP [address] [place] [address] Phone: tel: fax: [facility] [address] [place] [id number] Phone: tel: fax: Referral ID Status Reason Start Date Expiration Date V isits Requested Visits Authorized [id number] Closed Specialty Services 12/28/2021 12/28/2022 12 12 Reason for Visit * Reason Comments Mole Encounter Details Date Type Department Care Team (Late st Contact Info) Description 12/20/2021 10:00 AM CDT Office Visit [facility] Family & Internal Medicine - [place] [address] [place] [phone] Keyonna Armstrong APNP [address] [place], [place] [id number] Mole Social History Tobacco Use Types Packs/Day Years [...] CDT Gender Identity Female 07/17/2022 10:27 AM SAW REPAIRER Sexual Orientation Straight 07/17/2022 10 :27 AM SAW REPAIRER COVID-19 Exposure Response Date Recorded In the last 10 days, have yo u been in contact with someone who was confirmed or suspected to have Coronavirus/COVID-19? No / Unsure 12/20/2021 10:00 AM CDT documented as of this encounter Last Filed Vital Signs Vital Sign Reading Time Taken Comments Blood Pressure 153/103 12/20/2021 10:45 AM CDT Pulse 75 12/20/2021 10:08 AM CDT Temperature 36.8 ??C (98.3 ??F) 12/20/2021 10:08 AM C DT Respiratory Rate 14 12/20/2021 10:08 AM CDT Oxygen Saturation 94% 12/20/2021 10:08 AM CDT Inhaled Oxygen Concentration - - Weight 128.4 kg (283 lb) 12/20/2021 10:08 AM CDT Height 165.1 cm (5' 5) 12/20/2021 10:08 AM CDT Body Mass Index 47.09 12/20/2021 10:08 AM CDT documented in this encounter Progress Notes * YOBANI Cruz - 12/20/2021 10:00 AM CDT Images from the original note were not included. [facility] OFFICE VISIT Reason for Visit: Mole History of Present Illness: 51 yo female here today to follow up on her chronic health conditions. Obstructive sleep apnea -patient wears her CPAP nightly. For the most part feels well rested in themornings when she wears it. She would like to change from the full face mask to the nasal pillows if this is a possibility as the mask seems to make her feel anxious. She thinks she would be more compliant with the nasal pillows. ?? GERD -symptoms controlled. Denies any excess belching or vomiting. Denies any bloody or black stools. ?? Hypertension -blood pressure controlled. Denies any bothersome side effects. Denies any chest pain,shortness of breath, headache, dizziness, heart palpitations or lower extremity edema. BP is elevated at today's visit---but she did not take her meds this morning--forgot. ?? Obesity -patient aware of her weight and a chronic health problems surrounding obesity. Will discuss treatment options again today. ?? Anxiety /depression -patient continues to follow with RIGOBERTO Bertrand. Tolerates her medicationswell and feels both her [...] in the past, but did not like. ?? Adrenal adenoma -she has previously seen endocrinology and actually referred her back to endocrinology in December 2018. Patient has never followed up. An endocrinology referral was placed in 09/20/2020.She has an appt with Sury Rivas in 05/2021. Unfortunately, there are no notes in her chart regarding this. She states labs were obtained---pt states she wasn't told to follow up and to but something OTC for her thyroid. She also has a mole on the right side of her head. She states she does not know if it is getting bigger or not as she does not monitor, but thinks it may have enlarged some, it but would like it removed. Requesting a referral to a healthcare market consultant. She did have a pap smear with her established [employer]---but states she has left the practice. Due to have a pap---aware of this. Will schedule. ROS: Review of Systems Constitutional: Negative for chills and fever. Respiratory: Negative for cough and shortness of breath. Cardiovascular: Negative for chest pain and palpitations. Gastrointestinal: Negative for abdominal pain, diarrhea, nausea and vomiting. Genitourinary: Negative for dysuria and urgency. Neurological: Negative for dizziness and headaches. Psychiatric/Behavioral: Positive for depression. Negative for suicidal ideas. The patient is not nervous/anxious. Medications: Current Outpatient Medications: ??? albuterol sulfate HFA 108 (90 Base) MCG/ACT inhaler, TAKE 2 PUFFS BY MOUTH EVERY 4 HOURS NEEDED FOR WHEEZING, Disp: , Rfl: ??? BUPROPION SR 150 MG 12 hr tablet, TAKE 1 TABLET BY MOUTH TWICE A DAY, Disp: 180 tablet, Rfl: 3 ??? diclofenac sodium 1 % gel, Apply 4 g topically 4 (four) times daily., Disp: 50 g, Rfl: 1 ??? FLUTICASONE PROPIONATE 50 MCG/ACT nasal spray, SPRAY 1 SPRAY INTO EACH NOSTRIL EVERY DAY, Disp:48 mL, Rfl: 1 ??? HYDROCHLOROTHIAZIDE 25 MG tablet, TAKE 1 TABLET BY MOUTH EVERY DAY, Disp: 90 tablet, Rfl: 1 ??? IBUPROFEN 800 MG tablet, TAKE 1 TABLET BY MOUTH EVERY 12 HOURS NEEDED FOR PAIN, Disp: 90 tablet, Rfl: 2 ??? LISINOPRIL 40 MG tablet, TAKE 1 TABLET BY MOUTH EVERY DAY, Disp: 90 tablet, Rfl: 1 ??? lorazepam 1 MG tablet, Take 1 mg by mouth every 8 (eight) hours as needed for Anxiety (regularly takes 3 tabs daily). , Disp: , Rfl: ??? METFORMIN 500 MG tablet, TAKE 1 TABLET BY MOUTH EVERY MORNING, 2 TABLETS AT BEDTIME, Disp: 270 tablet, Rfl: 1 ??? METHOCARBAMOL 750 MG Tab, TAKE 1 TO 2 TABLETS BY MOUTH 3 TIMES A DAY NEEDED, Disp: 180 tablet, Rfl: 0 ??? METOPROLOL SUCCINATE ER 100 MG 24 hr tablet, TAKE 1 TABLET BY MOUTH EVERY DAY, Disp: 90 tablet,Rfl: 1 ??? Multiple Vitamin (MULTI-VITAMIN) tablet, Take 1 tablet by mouth daily., Disp: , Rfl: ??? ondansetron 4 MG tablet, TAKE 1 TABLET BY MOUTH EVERY 6 HOURS NEEDED FOR NAUSEA/VOMITING, Disp: , Rfl: 1 ??? PANTOPRAZOLE EC 20 MG tablet, TAKE 1 TABLET BY MOUTH EVERY DAY, Disp: 90 tablet, Rfl: 1 ??? pantoprazole EC 20 MG tablet, 20 mg., Disp: , Rfl: ??? VENLAFAXINE XR 75 MG 24 hr capsule, TAKE ONE CAPSULE BY MOUTH EVERY MORNING AND TAKE 2 CAPSULESEVERY EVENING, Disp: 270 capsule, Rfl: 1 ??? vitamin D3, cholecalciferol, (CHOLECALCIFEROL) 5000 UNITS capsule, Take 5,000 Units by mouth daily., Disp: , Rfl: ??? zolpidem 10 MG tablet, Take 1 tablet (10 mg total) by mouth nightly as needed for Sleep., Disp:30 tablet, Rfl: 1 ??? LARISSIA 0.1-20 MG-MCG tablet, , Disp: , Rfl: ??? simethicone 80 MG chewable tablet, 80 mg 4 (four) times daily., Disp: , Rfl: Allergies: Allergies Allergen Reactions [...] SCREENING performed by Burt Payne MD at [facility] ??? GASTRIC BYPASS N/A 2004 Social History: Social History Socioeconomic History ??? Marital status: Tobacco Use ??? Smoking status: Never Smoker ??? Smokeless tobacco: Never Used Vaping Use ??? Vaping Use: Never used [...] regular rhythm. Heart sounds: Normal heart sounds. Pulmonary: Effort: [...] is warm and dry. Findings: No erythema. Comments: approx 1 cm, raised, waxy brown lesion to right confucianism Neurological: Mental Status: She is alert and oriented to person, place, and time. Gait: Gait is intact. Psychiatric: Mood and Affect: Mood and affect normal. Filed Vitals: 12/20/21 1008 BP: (!) 151/88 Pulse: 75 Resp: 14 Temp: 98.3 ??F (36.8 ??C) SpO2: 94% Weight: 128.4 kg (283 lb) Height: 5' 5 (1.651 m) Labs: Labs Reviewed Diagnoses/Impression: 1. Recurrent major depressive disorder, in partial remission ([facility]/HCC) TSH W/REFLEX 2. Obstructive sleep apnea Chronic CBC W/DIFF AUTOMATED 3. Primary insomnia Chronic zolpidem 10 MG tablet 4. Gastroesophageal reflux disease, unspecified whether esophagitis present Chronic CBC W/DIFF AUTOMATED 5. Adenoma of left adrenal gland Chronic TSH W/REFLEX 6. Anxiety Chronic TSH W/REFLEX 7. BMI 45.0-49.9, adult (CMS/HCC) CBC W/DIFF AUTOMATED TSH W/REFLEX URINALYSIS WI REFLEX TO CULTURE COMPREHENSIVE METABOLIC PANEL 8. Change in facial mole Ambulatory referral to Dermatology 9. Dyslipidemia LIPID PANEL 10. Primary hypertension Recommendations and Plan: 1. Recurrent major depressive disorder, in partial remission (CMS/HCC) - TSH W/REFLEX; Future - TSH W/REFLEX Stable. Continue meds. 2. Obstructive sleep apnea - CBC W/DIFF AUTOMATED; Future - CBC W/DIFF AUTOMATED Stable. Continue meds 3. Primary insomnia - zolpidem 10 MG tablet; Take 1 tablet (10 mg total) by mouth nightly as needed for Sleep. Dispense: 30 tablet; Refill: 1 Stable. Continue meds. CSA updated. 4. Gastroesophageal reflux disease, unspecified whether esophagitis present - CBC W/DIFF AUTOMATED; Future - CBC W/DIFF AUTOMATED Stable. Continue meds. 5. Adenoma of left adrenal gland - TSH W/REFLEX; Future - TSH W/REFLEX Encouraged to follow back up with endo. 6. Anxiety - TSH W/REFLEX; Future - TSH W/REFLEX Stable. Continue meds. Continue follow up with PMHNP 7. BMI 45.0-49.9, adult (CMS/HCC) - CBC W/DIFF AUTOMATED; Future - TSH W/REFLEX; Future - URINALYSIS WI REFLEX TO CULTURE; Future - COMPREHENSIVE METABOLIC PANEL; Future - CBC W/DIFF AUTOMATED - TSH W/REFLEX - URINALYSIS WI REFLEX TO CULTURE - COMPREHENSIVE METABOLIC PANEL TLC's and dietary changes conducive to weight loss discussed with pt today. 8. Change in facial mole - Ambulatory referral to Dermatology Encouraged her to have a full body check as she has several moles. 9. Dyslipidemia - LIPID PANEL; Future - LIPID PANEL More plan after lab results if needed 10. HTN BP elevated initially. Did not improve upon recheck. Forgot meds today. Would like for pt to returnfor a [place] BP check, once meds on board. Orders Placed This Encounter ??? CBC W/DIFF AUTOMATED ??? TSH W/REFLEX ??? URINALYSIS WI REFLEX TO CULTURE ??? COMPREHENSIVE METABOLIC PANEL ??? LIPID PANEL ??? Ambulatory referral to Dermatology ??? simethicone 80 MG chewable tablet ??? pantoprazole EC 20 MG tablet ??? zolpidem 10 MG tablet Cannot display discharge medications since this is not an admission. PCP: YOBANI Cruz 12/20/2021 Cosigned by Kel Solo MD at 12/26/2021 8:14 AM CDT documented in this encounter Plan of Treatment Upcoming Encounters Date Type Department Care Team (Late st Contact Info) Description 07/25/2024 10:00 AM SAW REPAIRER Office Visit [facility] Family & Internal Medicine - [place] [address] [place] [address] Keyonna Armstrong APNP [address] [place] [address] 07/31/2024 10:15 AM SAW REPAIRER Office Visit [facility], [facility] [address] [place] [address] Pepe Mitchell MD Three [facility]. [facility] [address] [place], [place] [address] Scheduled Referrals Name Type Priority Associated Diagnoses Orde r Schedule Ambulatory referral to Dermatology Referral Routine Change in facial mole Ordered: 12/20/2021 documented as of this encounter Visit Diagnoses Diagnosis Recurrent major depressive disorder, in partial remission ([facility])- Primary Obstructive sleep apnea Obstructive sleep apnea (adult) (pediatric) Primary insomnia Persistent disorder of initiating or maintaining sleep Gastroesophageal reflux disease, unspecified whether esophagitis present Adenoma of left adrenal gland Benign neoplasm of adrenal gland Anxiety Anxiety state, unspecified BMI 45.0-49.9, adult ([facility]) Body Mass Index 45.0-49.9, adult Change in facial mole Benign neoplasm of skin of other and unspecified parts of face Dyslipidemia Other and unspecified hyperlipidemia Primary hypertension Unspecified essential hypertension documented in this encounter Additional Health Concerns Assessment Noted Time PHQ-9 Depression Total Score: 22 020 3:46 PM SAW REPAIRER documented as of this encounter Care Teams Infant Caregiver Relationship Specialty Start Date End Date Keyonna Armstrong APNP [address] [place] [address] PCP - General NURSE PRACTITIONER 05/06/18 documented as of this encounter
--- OUTSIDE RECORDS SUMMARY | 2024-07-10 22:58 | XMS_ITS | Encounter Summary ---
Author Organization [facility] Address [address] [place] [address]. [place], [place] [phone] [place] [address] Care Team Providers Care Admissions Dean Name Role Phone Keyonna Armstrong Primary Care Provider [phone] Encounter Details Date Type Department Care Team (Late st Contact Info) Description 09/29/2022 8:00 AM TRUST MANAGER ASSISTANT Laboratory Only [facility] Family & Internal Medicine [facility] [address] [place] [phone] Keyonna Armstrong APNP [address] [place] [address] Social History Tobacco Use Types Packs/Day Years [...] CDT Gender Identity Female 07/17/2022 10:27 AM TRUST MANAGER ASSISTANT Sexual Orientation Straight 07/17/2022 10 :27 AM TRUST MANAGER ASSISTANT COVID-19 Exposure Response Date Recorded In the last 10 days, have yo u been in contact with someone who was confirmed or suspected to have Coronavirus/COVID-19? No / Unsure 09/29/2022 7:45 AM TRUST MANAGER ASSISTANT documented as of this encounter Plan of Treatment Upcoming Encounters Date Type Department Care Team (Late st Contact Info) Description 07/25/2024 10:00 AM TRUST MANAGER ASSISTANT Office Visit [facility] Family & Internal Medicine - [place] [address] [place] [address] Keyonna Armstrong APNP [address] [place] [address] 07/31/2024 10:15 AM TRUST MANAGER ASSISTANT Office Visit [facility], [facility] [address] [place], [place] [phone] Pepe Mitchell MD [facility]. [facility] [address] [place], [place] [id number] documented as of this encounter Procedures Procedure Name Priority Date/Time Associated Diagnosis Comments VENIPUNC ARM DRAW Routine 09/29/2022 8:08 AM TRUST MANAGER ASSISTANT Recurrent major depressive disorder, in partial remission Adenoma of left adrenal gland Dyslipidemia BMI 45.0-49.9, adult ([facility]) documented in this encounter Visit Diagnoses Diagnosis Recurrent major depressive disorder, in partial remission ([facility])- Primary Adenoma of left adrenal gland Benign neoplasm of adrenal gland Dyslipidemia Other and unspecified hyperlipidemia BMI 45.0-49.9, adult ([facility]) Body Mass Index 45.0-49.9, adult documented in this encounter Additional Health Concerns Assessment Noted Time PHQ-9 Depression Total Score: 22 020 3:46 PM TRUST MANAGER ASSISTANT documented as of this encounter Care Teams Admissions Dean Relationship Specialty Start Date End Date Keyonna Armstrong APNP [facility] [place] [address] PCP - General NURSE PRACTITIONER 05/06/18 documented as of this encounter
--- OUTSIDE RECORDS SUMMARY | 2024-07-10 22:58 | XMS_ITS | Encounter Summary ---
Author Organization [facility] Address [address] [place] [address]. [place], [place] [address] [place] [address] Care Team Providers Care Milk Handler Name Role Phone Keyonna Armstrong Primary Care Provider [phone] Encounter Details Date Type Department Care Team (Latest Contact Info) Description 08/22/2022 Scan HEALTH INFO SRVCS Scanned, Doc Med [...] CDT Gender Identity Female 07/17/2022 10:27 AM COBOL DEVELOPER Sexual Orientation Straight 07/17/2022 10 :27 AM COBOL DEVELOPER documented as of this encounter Plan of Treatment Upcoming Encounters Date Type Department Care Team (Late st Contact Info) Description 07/25/2024 10:00 AM COBOL DEVELOPER Office Visit [facility] Family & Internal Medicine [address] [address] Keyonna Armstrong APNP [address] [place] [address] 07/31/2024 10:15 AM COBOL DEVELOPER Office Visit [facility], [facility] [address] [place], [place] [phone] Pepe Mitchell MD Three [facility]. [facility] [address] [place] [address] documented as of this encounter Visit Diagnoses Not on filedocumented in this encounter Additional Health Concerns Assessment Noted Time PHQ-9 Depression Total Score: 22 020 3:46 PM COBOL DEVELOPER documented as of this encounter Care Teams Milk Handler Relationship Specialty Start Date End Date Keyonna Armstrong APNP [address] [place] [address] PCP - General NURSE PRACTITIONER 05/06/18 documented as of this encounter
--- OUTSIDE RECORDS SUMMARY | 2024-07-10 22:58 | XMS_ITS | Encounter Summary ---
Author Organization [facility] Address [address] [place] [address]. [place], [place] [phone] [place] [address] Care Team Providers Care Diesel Motor Mechanic Name Role Phone Keyonna Armstrong Primary Care Provider [phone] Encounter Details Date Type Department Care Team (Latest Contact Info) Description 03/22/2023 Scan HEALTH INFO SRVCS Scanned, Doc Med [...] CDT Gender Identity Female 07/17/2022 10:27 AM BOAT CAPTAIN Sexual Orientation Straight 07/17/2022 10 :27 AM BOAT CAPTAIN documented as of this encounter Plan of Treatment Upcoming Encounters Date Type Department Care Team ( Contact Info) Description 07/25/2024 10:00 AM BOAT CAPTAIN Office Visit [facility] Family & Internal Medicine [address] [address] Keyonna Armstrong APNP [address] [place] [address] 07/31/2024 10:15 AM BOAT CAPTAIN Office Visit [facility], [facility] [address] [place], [place] [address] Pepe Mitchell MD Three [facility]. [facility] [address] [place] [address] documented as of this encounter Visit Diagnoses Not on filedocumented in this encounter Additional Health Concerns Assessment Noted Time PHQ-9 Depression Total Score: 22 020 3:46 PM BOAT CAPTAIN documented as of this encounter Care Teams Diesel Motor Mechanic Relationship Specialty Start Date End Date Keyonna Armstrong APNP [address] [place] [address] PCP - General NURSE PRACTITIONER 05/06/18 documented as of this encounter
--- OUTSIDE RECORDS SUMMARY | 2024-07-10 22:58 | XMS_ITS | Encounter Summary ---
Author Organization [facility] Address [address] [place] [address]. [place], [place] [address] [place] [address] Care Team Providers Care Cork Wirer Name Role Phone Keyonna Armstrong Primary Care Provider [phone] Encounter Details Date Type Department Care Team (Latest Contact Info) Description 07/20/2022 Travel Social History Tobacco Use Types Packs/Day [...] CDT Gender Identity Female 07/17/2022 10:27 AM APPLICATION DESIGNER Sexual Orientation Straight 07/17/2022 10 :27 AM APPLICATION DESIGNER COVID-19 Exposure Response Date Recorded In the last 10 days, have yo u been in contact with someone who was confirmed or suspected to have Coronavirus/COVID-19? No / Unsure 07/20/2022 12:13 PM APPLICATION DESIGNER documented as of this encounter Plan of Treatment Upcoming Encounters Date Type Department Care Team (Late st Contact Info) Description 07/25/2024 10:00 AM APPLICATION DESIGNER Office Visit [facility] Family & Internal Medicine - [place] [address] [place] [address] Keyonna Armstrong APNP [address] [place] [address] 07/31/2024 10:15 AM APPLICATION DESIGNER Office Visit [facility], [facility] [address] [place] [address] Pepe Mitchell MD Three [facility]. [facility] [address] [place] [address] documented as of this encounter Visit Diagnoses Not on filedocumented in this encounter Additional Health Concerns Assessment Noted Time PHQ-9 Depression Total Score: 22 020 3:46 PM APPLICATION DESIGNER documented as of this encounter Care Teams Cork Wirer Relationship Specialty Start Date End Date Keyonna Armstrong APNP [address] [place] [address] PCP - General NURSE PRACTITIONER 05/06/18 documented as of this encounter
--- OUTSIDE RECORDS SUMMARY | 2024-07-10 22:58 | XMS_ITS | Encounter Summary ---
Author Organization [facility] Address [address] [place] [address]. [place] [id number] [place] [address] Care Team Providers Care Member Of The Legislative Council Name Role Phone Keyonna Armstrong Primary Care Provider [phone] Reason for Visit * Reason Comments Sleep Problem Encounter Details Date Type Department Care Team (Late st Contact Info) Description 10/23/2022 1:20 PM CDT Telemedicine [facility] Medical Group Family & Internal [facility] [address] [place] [phone] Keyonna Armstrong APNP [address] [place], [place] [phone] Sleep Problem Social History Tobacco Use Types [...] CDT Gender Identity Female 07/17/2022 10:27 AM SURVEY RODMAN Sexual Orientation Straight 07/17/2022 10 :27 AM SURVEY RODMAN COVID-19 Exposure Response Date Recorded In the last 10 days, have yo u been in contact with someone who was confirmed or suspected to have Coronavirus/COVID-19? Unable to assess 10/23/2022 6:39 AM CDT documented as of this encounter Progress Notes * Keyonna Armstrong, APNP - 10/23/2022 1:20 PM CDT Images from the original note were not included. [facility] FAMILY AND INTERNAL MEDICINE OFFICE VISIT I introduced and identified myself, received verbal consent from the patient to proceed with this video visit and made the patient aware that the same confidentiality and health services information specialist practices apply. The patient joined the video visit from Home. I completed the virtual visit from [facility]. [facility] Nurse: Soo. Total Time Spent in Minutes: 15 Reason for Visit: Sleep Problem History of Present Illness: 52 yo female presents today via VV wishing to discuss her insomnia and zolpidem. She would like to wean off of or change the zolpidem as it does not seem like it is as effective as it should be. She typically is able to get to sleep but often wakes up after a few hours. 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 She did mention another sedative/hypnotic if this was a possibility. At one point we had tried trazodone, but she was not able to tolerate. ROS: Review of Systems Constitutional: Negative for chills, fever and malaise/fatigue. Respiratory: Negative for cough and shortness of breath. Cardiovascular: Negative for chest pain and palpitations. Gastrointestinal: Negative for abdominal pain, diarrhea, nausea and vomiting. Neurological: Negative for dizziness and headaches. Psychiatric/Behavioral: The patient has insomnia. The patient is not nervous/anxious. Medications: Current Outpatient Medications: ??? zolpidem CR (AMBIEN CR) 12.5 MG tablet, Take 1 tablet (12.5 mg total) by mouth nightly as needed for Sleep., Disp: 30 tablet, Rfl: 0 ??? amLODIPine (NORVASC) 5 MG tablet, TAKE 1 TABLET (5 MG TOTAL) BY MOUTH DAILY., Disp: 90 tablet, Rfl: 1 ??? buPROPion SR (WELLBUTRIN SR) 150 MG 12 hr tablet, TAKE 1 TABLET BY MOUTH TWICE A DAY, Disp: 180tablet, Rfl: 0 ??? hydroCHLOROthiazide (HYDRODIURIL) 25 MG tablet, TAKE [...] AT BEDTIME, Disp: 270 tablet, Rfl: 0 ??? metoprolol succinate ER (TOPROL-XL) 100 MG 24 hr tablet, TAKE 1 TABLET BY MOUTH EVERY DAY, Disp: 90 tablet, Rfl: 1 ??? Multiple Vitamin (MULTI-VITAMIN) tablet, Take 1 tablet by mouth daily., Disp: , Rfl: ??? pantoprazole EC (PROTONIX) 20 MG tablet, TAKE 1 TABLET (20 MG TOTAL) BY MOUTH DAILY. PATIENT MUST BE SEEN FOR FURTHER REFILLS, Disp: 90 tablet, Rfl: 0 ??? venlafaxine XR (EFFEXOR-XR) 75 MG 24 hr capsule, Take on capsule by mouth every morning and take two capsules every evening. Patient must be seen for further refills., Disp: 270 capsule, Rfl: 0 Allergies: Allergies Allergen Reactions ??? Trazodone Hallucinations Medical History: Past Medical History: Diagnosis Date ??? Adrenal adenoma 10/11/2017 ??? Anxiety 09/20/2017 ??? Cholecystitis 06/11/2018 ??? Depression 06/19/2012 ??? Diabetes mellitus ([facility]) ??? Esophageal reflux 04/22/2013 ??? Hypertension 06/19/2012 ??? Insomnia 04/02/2018 ??? Menorrhagia 04/02/2018 ??? Morbid obesity (CMS/HCC) 09/23/2013 ??? Obstructive sleep apnea 08/02/2012 ??? Sinus tachycardia 09/20/2017 Surgical History: Past Surgical History: Procedure Laterality Date ??? CHOLECYSTECTOMY ??? COLONOSCOPY N/A 01/12/2020 COLONOSCOPY SCREENING performed by Burt Payne MD at [facility] ??? GASTRIC BYPASS N/A 2004 Social History: [...] ??? Stroke Maternal Grandmother PE: Physical Exam Pulmonary: Effort: Pulmonary effort is normal. No respiratory distress. Neurological: Mental Status: She is alert and oriented to person, place, and time. There were no vitals filed for this visit. Labs: Labs Reviewed Diagnoses/Impression: 1. Primary insomnia Chronic zolpidem CR (AMBIEN CR) 12.5 MG tablet Recommendations and Plan: 1. Primary insomnia - zolpidem CR (AMBIEN CR) 12.5 MG tablet; Take 1 tablet (12.5 mg total) by mouth nightly as needed for Sleep. Dispense: 30 tablet; Refill: 0 Will switch from IR to CR zolpidem tto see if this would be helpful in keeping her sleep. She is aware of risk, benefits and side effects and potential long- term effects of taking zolpidem on a dailybasis. Orders Placed This Encounter ??? zolpidem CR (AMBIEN CR) 12.5 MG tablet Cannot display discharge medications since this is not an admission. PCP: YOBANI Cruz 10/23/2022 documented in this encounter Plan of Treatment Upcoming Encounters Date Type Department Care Team (Late st Contact Info) Description 07/25/2024 10:00 AM SURVEY RODMAN Office Visit [facility] Medical Group Family & Internal Medicine - [place] [address] [place] [address] Keyonna Armstrong APNP [address] [place] [address] 07/31/2024 10:15 AM SURVEY RODMAN Office Visit [facility] [address] [place] [address] Pepe Mitchell MD Three [facility]. [facility] [address] [place] [address] documented as of this encounter Visit Diagnoses Diagnosis Primary insomnia- Primary Persistent disorder of initiating or maintaining sleep documented in this encounter Additional Health Concerns Assessment Noted Time PHQ-9 Depression Total Score: 22 07/29/ 020 3:46 PM SURVEY RODMAN documented as of this encounter Care Teams Member Of The Legislative Council Relationship Specialty Start Date End Date Keyonna Armstrong APNP [address] [place] [address] PCP - General NURSE PRACTITIONER 05/06/18 documented as of this encounter
--- OUTSIDE RECORDS SUMMARY | 2024-07-10 22:59 | XMS_ITS | Encounter Summary ---
Author Organization [facility] Address Formerly [facility], [id number] [facility]. [place], [place] [phone] [place] [address] Care Team Providers Care Wood Handler Name Role Phone Keyonna Armstrong Primary Care Provider [phone] Reason for Referral * Consultation (Routine) - Closed Specialty Diagnoses / Procedures Referred By Contac t Referred To Contact HEMATOLOGY/ONCOLOGY Diagnoses Abnormal CBC Keyonna Armstrong APNP [address] [place] [address] Phone: tel: fax: Brendan Lopez MD [address] [facility] [address] [place] [phone] Phone: tel: fax: Referral ID Status Reason Start Date Expiration Date V isits Requested Visits Authorized [id number] Closed Specialty Services 06/26/2021 06/26/2022 1 1 NUE SETTLEMENTS 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 Reason for Visit * Reason Onset Date Comments Results 05/24/2021 Encounter Details Date Type Department Care Team (Late st Contact Info) Description 05/24/2021 Telephone [facility] Medical Group Family & Internal Medicine - [place] [address] [place] [address] Keyonna Armstrong APNP [address] [place] [address] Results Social History Tobacco Use [...] CDT Gender Identity Female 07/17/2022 10:27 AM REVENUE SETTLEMENTS 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 Sexual Orientation Straight 07/17/2022 10 :27 AM REVENUE SETTLEMENTS 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 COVID-19 Exposure Response Date Recorded In the last month, have you been in contact with someone who was confirmed or suspected to have Coronavirus / COVID-19? No / Unsure 05/13/2021 12:47 PM CDT documented as of this encounter Progress Notes * Nenita Young MA - 05/30/2021 8:17 AM CST Patient notified and v/u . Referral sent NUE SETTLEMENTS 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 * Nenita Young MA - 05/30/2021 8:09 AM CST Lmtc, referral pended 05/30/2021 NUE SETTLEMENTS 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 * YOBANI Cruz - 05/29/2021 7:39 PM CST Let's refer pt to hematology for consistently abnormal CBC NUE SETTLEMENTS 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 * Nenita Young MA - 05/26/2021 2:53 PM CDT Patient has never seen living coach * Nenita Young MA - 05/25/2021 3:05 PM CDT LMTC 05/25/21 * Rose Young MA - 05/24/2021 4:10 PM CDT LMTRC * Lupe Dorado - 05/24/2021 2:54 PM CDT ----- Message from YOBANI Cruz sent at 05/16/2021 1:40 PM CDT ----- WBC improved but lymphocytes worse. Has she seen a living coach in the past for this as I do not think it is a new issue? documented in this encounter Plan of Treatment Upcoming Encounters Date Type Department Care Team (Late st Contact Info) Description 07/25/2024 10:00 AM REVENUE SETTLEMENTS 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 Office Visit [facility] Medical Group Family & Internal Medicine - [place] [address] [place] [address] Keyonna Armstrong APNP [address] [place] [address] 07/31/2024 10:15 AM REVENUE SETTLEMENTS 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 Office Visit [facility] [address] [place], [place] [phone] Pepe Mitchell MD Three [facility]. [facility] [address] [place] [address] Scheduled Referrals Name Type Priority Associated Diagnoses Orde r Schedule Ambulatory referral to Hematology Referral Routine Abnormal CBC Ordered: 05/30/2021 documented as of this encounter Visit Diagnoses Diagnosis Abnormal CBC- Primary Other abnormal blood chemistry documented in this encounter Additional Health Concerns Assessment Noted Time PHQ-9 Depression Total Score: 22 020 3:46 PM REVENUE SETTLEMENTS 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 documented as of this encounter Care Teams Wood Handler Relationship Specialty Start Date End Date Keyonna Armstrong APNP [address] [place] [address] PCP - General NURSE PRACTITIONER 05/06/18 documented as of this encounter
--- OUTSIDE RECORDS SUMMARY | 2024-07-10 22:59 | XMS_ITS | Encounter Summary ---
Author Organization [facility] Address [address] [place] [address]. [place], [place] [address] [place] [address] Care Team Providers Care Cotton Puller Name Role Phone Keyonna Armstrong Primary Care Provider [phone] Encounter Details Date Type Department Care Team (Latest Contact Info) Description 05/30/2021 Scan HEALTH INFO SRVCS Scanned, Documents Social [...] CDT Gender Identity Female 07/17/2022 10:27 AM CRT Sexual Orientation Straight 07/17/2022 10 :27 AM CRT COVID-19 Exposure Response Date Recorded In the last month, have you been in contact with someone who was confirmed or suspected to have Coronavirus / COVID-19? No / Unsure 05/13/2021 12:47 PM CDT documented as of this encounter Plan of Treatment Upcoming Encounters Date Type Department Care Team (Late st Contact Info) Description 07/25/2024 10:00 AM CRT Office Visit [facility] Medical Group Family & Internal Medicine - [place] [address] [place] [address] Keyonna Armstrong APNP [address] [place] [address] 07/31/2024 10:15 AM CRT Office Visit [facility] [address] [place] [address] Pepe Mitchell MD Three [facility]. [facility] [address] [place], [place] [phone] documented as of this encounter Visit Diagnoses Not on filedocumented in this encounter Additional Health Concerns Assessment Noted Time PHQ-9 Depression Total Score: 22 020 3:46 PM CRT documented as of this encounter Care Teams Cotton Puller Relationship Specialty Start Date End Date Keyonna Armstrong APNP [address] [place] [address] PCP - General NURSE PRACTITIONER 05/06/18 documented as of this encounter
--- OUTSIDE RECORDS SUMMARY | 2024-07-10 22:59 | XMS_ITS | Encounter Summary ---
Author Organization [facility] Address [address] [place] [address]. [place], [place] [address] [place] [address] Care Team Providers Care Force Variation Equipment Tender Name Role Phone Keyonna Armstrong Primary Care Provider [phone] Encounter Details Date Type Department Care Team (Latest Contact Info) Description 01/09/2020 10:30 AM CDT - 01/09/2020 11:59 PM [address] Encounter [facility] [place] [address] Burt Payne MD 3 [facility] [address] [place] [address] Discharge Disposition: Home or Self Care (Routine [...] Date Recorded PHQ-2 Score 6 07/29/2019 Comments Unknown Sex and Gender Information Value Date Recorded Sex Assigned at Not on file Legal Sex Female 5:47 PM CDT Gender Identity Female 07/17/2022 10:27 AM SALVAGE WINDER AND INSPECTOR Sexual Orientation Straight 07/17/2022 10 :27 AM SALVAGE WINDER AND INSPECTOR COVID-19 Exposure Response Date Recorded In the last month, have you been in contact with someone who was confirmed or suspected to have Coronavirus / COVID-19? No / Unsure 01/06/2020 12:48 PM CDT documented as of this encounter Medications at Time of Discharge Multiple Vitamin (MULTI-VITAMIN) tablet Take 1 tablet by mouth daily. albuterol sulfate HFA 108 (90 Base) MCG/ACT inhaler TAKE 2 PUFFS BY MOUTH EVERY 4 HOURS NEEDED FOR WHEEZING 06/10/2018 3 AMLODIPINE 5 MG tabletIndications: Essential hypertension TAKE 1 TABLET BY MOUTH EVERY DAY 90 tablet 1 08/26/2019 0 buPROPion SR 150 MG 12 hr tabletIndications: Anxiety,Recurrent major depressive disorder, in partial remission (CMS/[facility]) TAKE ONE TABLET TWICE DAILY. 180 tablet 11/26/2019 0 ENPRESSE-28 tabletIndications: Menorrhagia TAKE 1 TABLET BY MOUTH EVERY DAY 84 tablet 03/04/2019 1 hydroCHLOROthiazid e 25 MG tabletIndications: Essential hypertension Take 1 tablet (25 mg total) by mouth daily. Patient must be seen for further refills. Virtual Visits now available 30 tablet 12/16/2019 0 IBUPROFEN 800 MG tabletIndications: Right ovarian cyst TAKE 1 TABLET BY MOUTH EVERY 6 HOURS NEEDED FOR PAIN. 90 tablet 04/15/2019 0 LISINOPRIL 40 MG tabletIndications: Essential hypertension TAKE 1 TABLET BY MOUTH EVERY DAY 90 tablet 3 10/01/2019 0 lorazepam 1 MG tablet Take 1 mg by mouth every 8 (eight) hours as needed for Anxiety (regularly takes 3 tabs daily). 08/26/2019 3 METFORMIN 500 MG tabletIndications: DM (diabetes mellitus) (CMS/HCC HHS/HCC) TAKE 1 TABLET BY MOUTH EVERY MORNING AND THEN TAKE 2 TABLETS AT BEDTIME 270 tablet 12/11/2019 0 METHOCARBAMOL 750 MG TabIndications:Pul led muscle TAKE 1 TO 2 TABLETS BY MOUTH 3 TIMES A DAY NEEDED 180 tablet 1 09/22/2019 1 METOPROLOL SUCCINATE ER 100 MG 24 hr tabletIndications: Essential hypertension TAKE 1 TABLET BY MOUTH EVERY DAY 90 tablet 11/03/2019 0 Na sulfate-K sulfate-Mg sulfate (SUPREP BOWEL PREP KIT) 17.5-3.13-1.6 GM/177ML SolutionIndication s:Screening for colon cancer Take 177 mLs by mouth every 12 (twelve) hours. Take as directed by instruction sheet. 2 Bottle 08/28/2019 0 ondansetron 4 MG tablet TAKE 1 TABLET BY MOUTH EVERY 6 HOURS NEEDED FOR NAUSEA/VOMITING 1 09/01/2018 3 PANTOPRAZOLE EC 20 MG tabletIndications: Gastroesophageal reflux disease, esophagitis presence not specified TAKE 1 TABLET BY MOUTH EVERY DAY 30 tablet 1 12/16/2019 0 VENLAFAXINE XR 75 MG 24 hr capsuleIndications :Depression TAKE ONE CAPSULE BY MOUTH EVERY MORNING AND TAKE 2 CAPSULES EVERY EVENING 270 capsule 1 11/03/2019 0 vitamin D3, cholecalciferol, (CHOLECALCIFEROL) 5000 UNITS capsule Take 5,000 Units by mouth daily. 3 ZOLPIDEM 10 MG tabletIndications: Primary insomnia TAKE 1 TABLET BY MOUTH EVERY DAY AT BEDTIME NEEDED FOR SLEEP 30 tablet 12/30/2019 0 documented as of this encounter Plan of Treatment Upcoming Encounters Date Type Department Care Team (Late st Contact Info) Description 07/25/2024 10:00 AM SALVAGE WINDER AND INSPECTOR Office Visit [facility] Medical Group Family & Internal Medicine - [place] [address] [place] [address] Keyonna Armstrong APNP [address] [place] [address] 07/31/2024 10:15 AM SALVAGE WINDER AND INSPECTOR Office Visit [facility] [place] [address] [place], [place] [phone] Pepe Mitchell MD [facility]. [place] [address] [place] [address] documented as of this encounter Procedures Procedure Name Priority Date/Time Associated Diagnosis Comments CORONAVIRUS (COVID 19) STAT 01/09/2020 1:54 PM CDT Encounter for screening colonoscopy documented in this encounter Results * PRE-SURGICAL/PRE-PROCEDURE CORONAVIRUS (COVID 19) (01/09/2020 1:54 PM CDT) CORONAVIRUS SARS COV 2 PCR (RESP) NOT DETECTED NOT DETECTED 01/10/2020 9:43 PM CDT [facility] Comment: A Not Detected (negative) test result for this test means that SARS- CoV-2 RNA was not present in the specimen above the limit of detection. A negative result does not rule out the possibility of COVID-19 and should not be used as the sole basis for treatment or patient management decisions. ??If COVID-19 is still suspected, based on exposure history together with other clinical findings, re-testing should be considered in consultation with public health authorities. Laboratory test results should always be considered in the context of clinical observations and epidemiological data in making a final diagnosis and patient management decisions. Please review the Fact Sheets and FDA authorized labeling available for health care providers and patients using the following websites: https://www.[employer]com/home/Covid-19/HCP/Quest[employer]/fact- sheet.html https://www.[employer]home/Covid-19/Patients/ Quest[employer]/fact-sheet.html This test has been authorized by the FDA under an Emergency Use Authorization (EUA) for use by authorized laboratories. Due to the current public health emergency, [facility] is receiving a high volume of samples from a wide variety of swabs and media for COVID-19 testing. In order to serve patients during this public health crisis, samples from appropriate clinical sources are being tested. Negative test results derived from specimens received in non-commercially manufactured viral collection and transport media, or in media and sample collection kits not yet authorized by FDA for COVID-19 testing should be cautiously evaluated and the patient potentially subjected to extra precautions such as additional clinical monitoring, including collection of an additional specimen. Methodology: ??Nucleic Acid Amplification Test (NAAT) includes PCR or TMA Additional information about COVID-19 can be found at the [facility] website: www.[employer]Covid19. Test performed at [facility] [address] [place], [place] ??[phone] Director: GENE VILLAR DO,MPH NASOPHARYNGEAL SWAB / Unknown 01/09/2020 1:54 PM CDT us Burt Payne MD MICROBIOLOGY - GENERAL ORDERABLE S Final Result [facility] [id number] [place] [id number] documented in this encounter Visit Diagnoses Diagnosis Encounter for screening colonoscopy Special screening for malignant neoplasms, colon documented in this encounter Additional Health Concerns Infection Onset Date Last Indicated Resolved Time COVID-19 Rule Out 01/09/2020 01/09/2020 01/10/2020 9:43 PM CDT Assessment Noted Time PHQ-9 Depression Total Score: 22 020 3:46 PM SALVAGE WINDER AND INSPECTOR documented as of this encounter Care Teams Force Variation Equipment Tender Relationship Specialty Start Date End Date Keyonna Armstrong APNP [address] [place] [address] PCP - General NURSE PRACTITIONER 05/06/18 documented as of this encounter
--- OUTSIDE RECORDS SUMMARY | 2024-07-10 22:59 | XMS_ITS | Encounter Summary ---
Author Organization [facility] Address [address] [place] [address]. [place] [phone] [place] [address] Care Team Providers Care Candy Rolling Machine Operator Name Role Phone Keyonna Armstrong Primary Care Provider [phone] Reason for Visit * Reason Onset Date Comments Lab Results 10/22/2020 Encounter Details Date Type Department Care Team (Late st Contact Info) Description 10/22/2020 Telephone [facility] Medical Group Family & Internal Medicine [facility] [address] [place] [address] Keyonna Armstrong APNP [address] [place] [address] Lab Results Social History Tobacco [...] CDT Gender Identity Female 07/17/2022 10:27 AM RENTAL BOATS CARETAKER Sexual Orientation Straight 07/17/2022 10 :27 AM RENTAL BOATS CARETAKER documented as of this encounter Progress Notes * Keyla Stallings MA - 11/02/2020 12:59 PM CDT Pt v.u to get labs CBC done. Labs sent to [facility]. BB 11/02/20 * Keyla Stallings MA - 11/02/2020 12:58 PM CDT ----- Message from Di Bauer sent at 11/01/2020 1:34 PM CDT ----- ----- Message from YOBANI Cruz sent at 10/26/2020 3:05 PM CDT ----- ----- Message from Soo Choi RN sent at 10/22/2020 9:56 AM CDT ----- Thought this could wait until you returned. Patient stated this happens every year. * Di Bauer - 11/01/2020 1:33 PM CDT Patient called back in and no one was available, I advised her that someone will give her a call back again. * Zita Cook MA - 11/01/2020 11:41 AM CDT LMTC 11/01/20 * YOBANI Cruz - 10/26/2020 3:04 PM CDT Recheck CBC in a couple of weeks * Soo Choi RN - 10/22/2020 9:50 AM CDT Spoke with patient and informed her of her lab results and recommendations per provider. Patient stated she has never been to a finisher screwdown. Patient did state she has been having a runny nose, ear drainage and glands have been swollen. Patient verbalized understanding of results. Opportunity givenfor all questions to be answered, no further needs voiced at this time. Please advise LL-10/22/20 * Keyla Stallings MA - 10/22/2020 9:07 AM CDT Lmom to please call about labs. BB 10/22/20 * Keyla Stallings MA - 10/22/2020 9:06 AM CDT ----- Message from YOBANI Cruz sent at 10/22/2020 9:04 AM CDT ----- TG's remain elevated---reduce sugars, carbs, fried foods and processed foods in diet Other labs are stable. Her WBC has ran high--has she ever seen a finisher screwdown in the past? documented in this encounter Plan of Treatment Upcoming Encounters Date Type Department Care Team (Late st Contact Info) Description 07/25/2024 10:00 AM RENTAL BOATS CARETAKER Office Visit [facility] Medical Group Family & Internal Medicine - [place] [address] [place] [address] Keyonna Armstrong APNP [address] [place] [address] 07/31/2024 10:15 AM RENTAL BOATS CARETAKER Office Visit [facility], [address] [address] Pepe Mitchell MD [facility] [address] [place] [address] documented as of this encounter Visit Diagnoses Diagnosis Abnormal CBC- Primary Other abnormal blood chemistry documented in this encounter Additional Health Concerns Assessment Noted Time PHQ-9 Depression Total Score: 22 020 3:46 PM RENTAL BOATS CARETAKER documented as of this encounter Care Teams Candy Rolling Machine Operator Relationship Specialty Start Date End Date Keyonna Armstrong APNP [address] [place] [address] PCP - General NURSE PRACTITIONER 05/06/18 documented as of this encounter
--- OUTSIDE RECORDS SUMMARY | 2024-07-10 22:59 | XMS_ITS | Encounter Summary ---
Author Organization [facility] Address [facility]. [place], [place] [id number] [place] [address] Care Team Providers Care Embroidery Finisher Name Role Phone Keyonna Armstrong Primary Care Provider [phone] Reason for Referral * Consultation (Urgent) - Closed Specialty Diagnoses / Procedures Referred By Lee saunders Referred To Contact ORTHOPAEDIC SURGERY Diagnoses Right shoulder pain Neck pain Keyonna Armstrong APNP [address] [place] [address] Phone: tel: fax: Pepe Zepeda MD [address] [place] [address] Phone: tel: fax: Referral ID Status Reason Start Date Expiration Date V isits Requested Visits Authorized [id number] Closed Specialty Services 05/23/2021 12/19/2021 7 7 SERVICES OPERATOR Reason for Visit * Reason Onset Date Comments Referral 05/30/2021 Encounter Details Date Type Department Care Team (Late st Contact Info) Description 05/30/2021 Telephone [facility] Family & Internal Medicine - [place] [address] [place] [address] Keyonna Armstrong APNP [address] [place] [address] Referral Social History Tobacco Use [...] CDT Gender Identity Female 07/17/2022 10:27 AM WELL SERVICES OPERATOR Sexual Orientation Straight 07/17/2022 10 :27 AM WELL SERVICES OPERATOR COVID-19 Exposure Response Date Recorded In the last month, have you been in contact with someone who was confirmed or suspected to have Coronavirus / COVID-19? No / Unsure 05/13/2021 12:47 PM CDT documented as of this encounter Progress Notes * Nenita Young MA - 05/30/2021 8:19 AM CST Patient needs a referral for right shoulder . SERVICES OPERATOR documented in this encounter Plan of Treatment Upcoming Encounters Date Type Department Care Team (Late st Contact Info) Description 07/25/2024 10:00 AM WELL SERVICES OPERATOR Office Visit [facility] Medical [facility] Family & Internal Medicine - [place] [address] [place] [address] Keyonna Armstrong APNP [address] [place] [address] 07/31/2024 10:15 AM WELL SERVICES OPERATOR Office Visit [facility], [place] [address] [place] [address] Pepe Mitchell MD [facility]. [place] [address] [place] [address] Scheduled Referrals Name Type Priority Associated Diagnoses Orde r Schedule Ambulatory referral to Orthopedics (OTHER) Referral Routine Right shoulder pain Neck pain Ordered: 05/30/2021 documented as of this encounter Visit Diagnoses Diagnosis Right shoulder pain- Primary Pain in joint, shoulder region Neck pain Cervicalgia documented in this encounter Additional Health Concerns Assessment Noted Time PHQ-9 Depression Total Score: 22 020 3:46 PM WELL SERVICES OPERATOR documented as of this encounter Care Teams Embroidery Finisher Relationship Specialty Start Date End Date Keyonna Armstrong APNP [address] [place] [address] PCP - General NURSE PRACTITIONER 05/06/18 documented as of this encounter
--- OUTSIDE RECORDS SUMMARY | 2024-07-10 22:59 | XMS_ITS | Encounter Summary ---
Author Organization [facility] Address [address] [place] [address]. [place] [address] [place] [address] Care Team Providers Care Business Management Professor Name Role Phone Keyonna Armstrong Primary Care Provider [phone] Reason for Visit * Auth/Cert Specialty Diagnoses / Procedures Referred By Lee t Referred To Contact Diagnoses SCREENING Procedures COLONOSCOPY SCREENING Referral ID Status Reason Start Date Expiration Date Visits Re quested Visits Authorized [id number] 1 1 Encounter Details Date Type Department Care Team (Late st Contact Info) Description 01/12/2020 9:20 AM CDT Anesthesia Event [facility] [place] [address] Amber Chavez MD [address] [address] Anesthesia Record Procedure Summary Procedure Name Responsible Anesthesiologist Anesthesia Start Time Anesthesia Stop Time COLONOSCOPY SCREENING Amber champion MD 01/12/20 0920 01/12/20 0938 Events Date Time Event Comment 01/12/2020 0859 0859 AN Anesthesia Prepped 0901 AN DINING SERVICE SUPERVISOR Prepped 0904 An Start Data 0905 Nasal Cannula Applied 0907 Anesthesia Ready 0920 An Start Patient ID and consent checked and patient reassessed. 0920 An Induction 0934 An Emergence 0937 Nasal Cannula Removed 0937 an stop data 0938 Post Anesthetic Care Handoff I completed my handoff to the receiving nurse during which we: 1. Identified the patient 2. Identified the responsible provider 3. Reviewed the pertinent medical history 4. Discussed the surgical course 5. Reviewed intra-op anesthesia management and issues during anesthesia 6. Set expectations for post-procedure period 7. Allowed opportunity for questions and acknowledgement of understanding. 0938 An Stop Meds Name Total lidocaine (PF) (XYLOCAINE) 2% injection 50 mg propofol (DIPRIVAN) 200 mg/20 mL injecti on 225 mg lactated ringers infusion 600 mL * Agents Name O2 N2O Air Ancillary O2 * Blood No blood administrations on file. Lines, Drains, and Airways Type Details Placement Removal Peripheral IV Placement Date: 12/22 09/11; Placement Time: 754; Placed Outside of This Facility?: No; Size: 22 G; Orientation: Right; Location: Hand; Site Prep: Chlorhexidine; Local Anesthetic: None; Inserted By: Jessy Cortez; Insertion attempts: 1; Ultrasound-guided Placement?: No; Patient Tolerance: Tolerated well; Removal Date: 01/12/20; Removal Time: 0959; Removal Reason: Patient Discharged 01/12/20 0755 by Jessy Cortez RN 01/12/20 0959 by Nova Nieves RN documented in this encounter Social History Tobacco Use Types Packs/Day Years [...] CDT Gender Identity Female 07/17/2022 10:27 AM NETWORK SUPPORT ENGINEER Sexual Orientation Straight 07/17/2022 10 :27 AM NETWORK SUPPORT ENGINEER COVID-19 Exposure Response Date Recorded In the last month, have you been in contact with someone who was confirmed or suspected to have Coronavirus / COVID-19? No / Unsure 01/12/2020 7:07 AM CDT documented as of this encounter OR Notes * Anesthesia Postprocedure Evaluation - Amber Blanton MD - 01/12/2020 10:05 AM CDT Anesthesia Post-op Note Veronica Evangelista Procedure(s): COLONOSCOPY SCREENING (N/A ) Anesthesia type: general Vitals: 01/12/20 0955 BP: 121/76 Vitals: 01/12/20 0955 Pulse: 91 Vitals: 01/12/20 09 Resp: 18 Vitals: 01/12/20 0935 Temp: 36.9 ??C Vitals: 01/12/20 0955 SpO2: 100% Patient Location: Phase II/Outpatient Level of Consciousness: awake, alert and oriented Pain Management: adequate analgesia Airway Patency: patent Respiratory Status: spontaneous ventilation, nonlabored ventilation and room air Cardiovascular Status: hemodynamically stable Post-Op Nausea: none Postoperative Hydration: euvolemic Complications: no anesthesia complication * Anesthesia Postprocedure Evaluation - Amber Blanton MD - 01/12/2020 10:04 AM CDT Anesthesia Post-op Note Veronica Evangelista Procedure(s): COLONOSCOPY SCREENING (N/A ) Anesthesia type: general Vitals: 01/12/20954 BP: 121/76 Vitals: 01/12/20 0955 Pulse: 91 Vitals: 01/12/20 09 Resp: 18 Vitals: 01/12/20 0935 Temp: 36.9 ??C Vitals: 01/12/20 0955 SpO2: 100% Patient Location: Other (Endoscopy Suite) Level of Consciousness: awake, alert and oriented Pain Management: adequate analgesia Airway Patency: patent Respiratory Status: spontaneous ventilation, nonlabored ventilation and room air Cardiovascular Status: hemodynamically stable Post-Op Nausea: none Postoperative Hydration: euvolemic Complications: no anesthesia complication * Anesthesia Preprocedure Evaluation - Amber Blanton MD - 01/12/2020 8:05 AM CDT Images from the original note were not included. Anesthesia ROS/MED History Reviewed: Patient summary , Family history anesthesia, Anesthesia history , Medications , Unchecked boxes arenot applicable Pre-Anesthetic State: alert, awake and responds appropriately Pulmonary (+) shortness of breath Cardiovascular (+) arrhythmia (simus tach - well controlled with metoprolol) Neuro/Psych (+) depression, psychiatric problem, (anxiety) GI/Hepatic/Renal (+) GERD, (well controlled) Endo/Other (+) diabetes mellitus, (diet controlled), obese GENERAL COMMENTS Past Surgical History: No date: CHOLECYSTECTOMY 2004: GASTRIC BYPASS; N/A Past Medical History: 09/20/2017: Anxiety 06/11/2018: Cholecystitis No date: Diabetes mellitus ([facility]) 04/22/2013: Esophageal reflux 06/19/2012: Hypertension 04/02/2018: Insomnia 04/02/2018: Menorrhagia 09/23/2013: Morbid obesity ([facility]) 08/02/2012: Obstructive sleep apnea 09/20/2017: Sinus tachycardia Physical Evaluation Airway Mallampati: I TM Distance: >3 FB Neck ROM: normal Dental (missing) Pulmonary Pulmonary exam normal Cardiovascular Cardiovascular exam normal Other findings: Height 5' 5 (1.651 m), weight 133.8 kg (295 lb). No results for input(s): WBC, RBC, HGB, HCT, PLT, NA, K, CL, CO2, AGAP, BUN, CR, BUNCREATININ, GFRNON, GFR, GLU, CA in the last 72 hours. Anesthesia Plan ASA 3 Intravenous Induction Anesthesia type: general Discussed potential risks of General Anesthesia including but not limited to corneal abrasion, visual impairment or visual loss, mouth injury, dental damage, sore throat, hoarseness, esophageal injury, awareness under anesthesia, nerve injury due to positioning, aspiration, pneumonia, stroke, cardiac event, adverse drug reactions and . TIVA Informed Consent Anesthetic plan and risks discussed with patient of whom consent was obtained. . documented in this encounter Plan of Treatment Upcoming Encounters Date Type Department Care Team (Late st Contact Info) Description 07/25/2024 10:00 AM NETWORK SUPPORT ENGINEER Office Visit [facility] Family & Internal Medicine - [place] [address] [place] [address] Keyonna Armstrong APNP [address] [place] [address] 07/31/2024 10:15 AM NETWORK SUPPORT ENGINEER Office Visit [facility] [place] [address] [place], [place] [id number] Pepe Mitchell MD [facility]. [facility] [address] [place], [place] [id number] documented as of this encounter Visit Diagnoses Not on filedocumented in this encounter Administered Medications Inactive Administered Medications - up to 3 most recent administrations Medication Order MAR Action Action Date Dose Rate Site lactated ringers infusion Intravenous, Continuous PRN, Starting on Sun01/12/20 at 0901, Until Sun01/12/20 at 0938, Anesthesia Intra-Op New Bag 01/12/2020 9:01 AM CDT lidocaine (PF) (XYLOCAINE) 2 % injection PRN, Starting on Sun01/12/20 at 0922, Until Sun01/12/20 at 0938, Anesthesia Intra-Op Given 01/12/2020 9:22 AM CDT 50 mg propofol (DIPRIVAN) IV bolus Intravenous, PRN, Starting on Sun01/12/20 at 0922, Until Sun01/12/20 at 0938, Anesthesia Intra-Op Given 01/12/2020 9:32 AM CDT 50 mg Given 01/12/2020 9:30 AM CDT 25 mg Given 01/12/2020 9:28 AM CDT 25 mg documented in this encounter Additional Health Concerns Assessment Noted Time PHQ-9 Depression Total Score: 22 020 3:46 PM NETWORK SUPPORT ENGINEER documented as of this encounter Care Teams Business Management Professor Relationship Specialty Start Date End Date Keyonna Armstrong APNP [address] [place] [address] PCP - General NURSE PRACTITIONER 05/06/18 documented as of this encounter
--- OUTSIDE RECORDS SUMMARY | 2024-07-10 22:59 | XMS_ITS | Encounter Summary ---
Author Organization [facility] Address [address] [place] [address]. [place], [place] [address] [place] [address] Care Team Providers Care Supply Chain Engineer Name Role Phone Keyonna Armstrong Primary Care Provider [phone] Reason for Visit * Reason Onset Date Comments Consult 09/15/2019 Encounter Details Date Type Department Care Team (Late st Contact Info) Description 09/15/2019 Telephone [facility] [address] Susi Parikh RMA Consult Social History Tobacco Use Types Packs/Day Years Used Date Smoking Tobacco: Never Smokeless Tobacco: Never Alcohol Use Standard Drinks/Week Comments No 0 (1 standard drink = 0.6 oz pur e alcohol) AUDIT-C Answer Date Recorded Frequency of Alcohol Consumption Never 06/11/2018 Average Number of Drinks Not on file 018 Frequency of Binge Drinking Not on file 05/24 PHQ-2 Answer Date Recorded PHQ-2 Score 6 07/29/2019 Comments Unknown Sex and Gender Information Value Date Recorded Sex Assigned at Not on file Legal Sex Female 5:47 PM CDT Gender Identity Female 07/17/2022 10:27 AM ORACLE ERP DEVELOPER Sexual Orientation Straight 07/17/2022 10 :27 AM ORACLE ERP DEVELOPER documented as of this encounter Progress Notes * TINO Knowles - 09/15/2019 8:49 AM CST No Conact to PCP We have tried to contact your patient by phone and by letter with no response. At this time, we will make no further attempts to contact your patient and we will return their care back to your office. LE ERP DEVELOPER documented in this encounter Plan of Treatment Upcoming Encounters Date Type Department Care Team (Late st Contact Info) Description 07/25/2024 10:00 AM ORACLE ERP DEVELOPER Office Visit [facility] Medical [facility] Family & Internal Medicine - [place] [address] [place] [address] Keyonna Armstrong APNP [address] [place] [address] 07/31/2024 10:15 AM ORACLE ERP DEVELOPER Office Visit [facility] [address] [place] [address] Pepe Mitchell MD [facility]. [facility] [address] [place], [place] [address] documented as of this encounter Visit Diagnoses Not on filedocumented in this encounter Additional Health Concerns Assessment Noted Time PHQ-9 Depression Total Score: 22 020 3:46 PM ORACLE ERP DEVELOPER documented as of this encounter Care Teams Supply Chain Engineer Relationship Specialty Start Date End Date Keyonna Armstrong APNP [address] [place] [address] PCP - General NURSE PRACTITIONER 05/06/18 documented as of this encounter
--- OUTSIDE RECORDS SUMMARY | 2024-07-10 22:59 | XMS_ITS | Encounter Summary ---
Author Organization [facility] Address [address] [place] [address]. [place] [address] [place] [address] Care Team Providers Care High School Counselor Name Role Phone Keyonna Armstrong Primary Care Provider [phone] Reason for Visit * Auth/Cert Specialty Diagnoses / Procedures Referred By Contac t Referred To Contact Diagnoses SCREENING Procedures COLONOSCOPY SCREENING Referral ID Status Reason Start Date Expiration Date Visits Re quested Visits Authorized [id number] 1 1 Encounter Details Date Type Department Care Team (Late st Contact Info) Description 01/12/2020 9:00 AM CDT - 01/12/2020 9:30 AM CDT Surgery [facility] [address] Nasim Russell MD [address] [address] COLONOSCOPY SCREENING Surgery Details Date/Time Status Location OR Service Patient Class Case Class Case Type Trauma Case? 01/12/2020 9:00 AM Posted [facility] 3 Gastroenterology Short Stay/Outp atient Surgery E - Elective No Panel 1 Procedure LRB Anes Op Region Wound Class Comments COLONOSCOPY SCREENING N/A General Clean Co ntaminated negative exam Surgeon Surgeon Role Service Panel Nasim Russell MD Primary Gastroenterology 1 Case Notes SCHEDULED BY FAX 08/29/19 LB documented in this encounter Social History Tobacco [...] CDT Gender Identity Female 07/17/2022 10:27 AM INTERNETWORKING TECHNICIAN Sexual Orientation Straight 07/17/2022 10 :27 AM INTERNETWORKING TECHNICIAN COVID-19 Exposure Response Date Recorded In the last month, have you been in contact with someone who was confirmed or suspected to have Coronavirus / COVID-19? No / Unsure 01/12/2020 7:07 AM CDT documented as of this encounter Last Filed Vital Signs Vital Sign Reading Time Taken Comments Blood Pressure 105/57 01/12/2020 7:45 AM CDT Pulse 100 01/12/2020 7:45 AM CDT Temperature 35.9 ??C (96.6 ??F) 01/12/2020 7:45 AM CD T Respiratory Rate 18 01/12/2020 7:45 AM CDT Oxygen Saturation 96% 01/12/2020 7:45 AM CDT Inhaled Oxygen Concentration - - Weight 133.8 kg (295 lb) 01/06/2020 12:47 PM CDT Height 165.1 cm (5' 5) 01/06/2020 12:47 PM CDT Body Mass Index 49.09 01/06/2020 12:47 PM CDT documented in this encounter Discharge Instructions * Attachments The following attachments cannot be sent through Care Everywhere. * Colonoscopy Discharge Instructions ([place]) * General Anesthesia Discharge Instructions ([place]) documented in this encounter Medications at Time of Discharge Multiple Vitamin (MULTI-VITAMIN) tablet Take 1 tablet by mouth daily. albuterol sulfate HFA 108 (90 Base) MCG/ACT inhaler TAKE 2 PUFFS BY MOUTH EVERY 4 HOURS NEEDED FOR WHEEZING 06/10/2018 3 buPROPion SR 150 MG 12 hr tabletIndications: Anxiety,Recurrent major depressive disorder, in partial remission (CMS/HCC) TAKE ONE TABLET TWICE DAILY. 180 tablet 11/26/2019 0 ENPRESSE-28 tabletIndications: Menorrhagia TAKE 1 TABLET BY MOUTH EVERY DAY 84 tablet 03/04/2019 1 IBUPROFEN 800 MG tabletIndications: Right ovarian cyst [...] HOURS NEEDED FOR NAUSEA/VOMITING 1 09/01/2018 3 VENLAFAXINE XR 75 MG 24 hr capsuleIndications [...] 12/30/2019 0 documented as of this encounter H&P Notes * Nasim Russell MD - 01/12/2020 9:16 AM CDT GASTROENTEROLOGY H&P 01/12/2020 9:17 AM Reason for Consult: Screening colonoscopy. History of Present Illness: Veronica Evangelista is a 49-year-old here for screening colonoscopy eval. Patient Active Problem List Diagnosis ??? Adrenal adenoma ??? Anxiety ??? Depression ??? Dyslipidemia ??? Esophageal reflux ??? High serum renin ??? History of motion sickness ??? HTN (hypertension) ??? Impaired fasting glucose ??? Insomnia ??? Long-term use of high-risk medication ??? Menorrhagia ??? Class 3 severe obesity with serious comorbidity in adult (CMS/HCC) ??? Obstructive sleep apnea ??? Retention of urine ??? Shortness of breath at rest ??? Right ovarian cyst ??? Sinus tachycardia ??? Cholecystitis ??? Leukocytosis (leucocytosis) ??? PCOS (polycystic ovarian syndrome) ??? Reactive thrombocytosis Past Medical History: Diagnosis Date ??? Anxiety 09/20/2017 ??? Cholecystitis 06/11/2018 ??? Diabetes mellitus (CMS/HCC) ??? Esophageal reflux 04/22/2013 ??? Hypertension 06/19/2012 ??? Insomnia 04/02/2018 ??? Menorrhagia 04/02/2018 ??? Morbid obesity (CMS/HCC) 09/23/2013 ??? Obstructive sleep apnea 08/02/2012 ??? Sinus tachycardia 09/20/2017 Past Surgical History: Procedure Laterality Date ??? CHOLECYSTECTOMY ??? GASTRIC BYPASS N/A 2004 Family History Problem Relation Name Age of Onset ??? Liver Disease Mother ??? Hypertension Mother ??? Diabetes Father ??? Thyroid Sister ??? Liver Disease Brother ??? Stroke Maternal Grandmother Social History Socioeconomic History ??? Marital status: Spouse name: Not on file ??? Number of children: Not on file ??? Years of education: Not on file ??? Highest education level: Not on file Occupational History ??? Not on file Social Needs ??? Financial resource strain: Not on file ??? Food insecurity: Worry: Not on file Inability: Not on file ??? Transportation needs: Medical: Not on file Non-medical: Not on file Tobacco Use ??? Smoking status: Never Smoker ??? Smokeless tobacco: Never Used Substance and Sexual Activity ??? Alcohol use: No Frequency: Never ??? Drug use: No ??? Sexual activity: Yes Partners: Male Lifestyle ??? Physical activity: Days per week: Not on file Minutes per session: Not on file ??? Stress: Not on file Relationships ??? Social connections: Talks on phone: Not on file Gets together: Not on file Attends confucianist service: Not on file Active member of club or organization: Not on file Attends meetings of clubs or organizations: Not on file Relationship status: Not on file ??? Intimate partner violence: Fear of current or ex partner: Patient refused Emotionally abused: Patient refused Physically abused: Patient refused Forced sexual activity: Patient refused Other Topics Concern ??? Not on file Social History Narrative ??? Not on file Allergies Allergen Reactions ??? Trazodone Hallucinations PHYSICAL EXAM: Filed Vitals: 09/15/19 0916 01/06/20 1247 01/12/20 0745 BP: 105/57 Pulse: 100 Resp: 18 Temp: 96.6 ??F (35.9 ??C) TempSrc: Temporal SpO2: 96% Weight: 132.5 kg (292 lb) 133.8 kg (295 lb) Height: 5' 5 (1.651 m) 5' 5 (1.651 m) Wt Readings from Last 3 Encounters: 01/06/20 133.8 kg (295 lb) 08/28/19 134.3 kg (296 lb) 08/06/19 (!) 139.7 kg (308 lb) General: pleasant, no distress Lungs: clear to auscultation bilaterally Heart: regular rate and rhythm, normal s1-s2 Abdomen: soft, non-tender, non-distended, bowel sounds normal, no palpable masses Neuro: Alert, oriented, cooperative Labs: No results for input(s): WBC, HGB, MCV, PLT, INR in the last 168 hours. No results for input(s): NA, K, CL, CO2, BUN in the last 168 hours. Invalid input(s): CREATININE No results for input(s): AST, ALT, ALB in the last 168 hours. Invalid input(s): ALKPHOS, TBILI ? Assessment and Plan: Screening colonoscopy. Plan, colonoscopy. The procedural risks, benefits, alternatives were discussed fully with the patient, including the risks of complications of bleeding, infection, bowel injury or perforation, anesthesia related risks but not limited to the above. Post complication remedies could include hospitalization, antibiotics,surgery or even the remote possibility of . The patient verbalized understanding of the risks and wishes to proceed. Thank you for this consult. Please do not hesitate to contact us with further questions. NASIM RUSSELL MD Voice recognition software utilized documented in this encounter OR Notes * Op Note - Nasim Russell MD - 01/12/2020 9:37 AM CDT [facility] OpNote COLONOSCOPY SCREENING Procedure Note Veronica Sacha Tonja 01/12/2020 0900 Procedure(s) (LRB): COLONOSCOPY SCREENING (N/A) Surgeon(s): Nasim Russell MD Staff: GI Nurse: Hope Aguilera RN bleach analyst: Joaquin Christensen Anesthesia: General Anesthesiologist: Amber Blanton MD Pre-Op Diagnosis: SCREENING Post-Op Diagnosis: Negative colonoscopy to cecum. Procedure Description: Informed consent was obtained earlier. Patient was brought to the OR and placed in supine lateral decubitus position and sedated under MAC anesthesia. PCF 190 colonoscope was lubricated inserted into the rectum advanced to the cecum. Bowel prep was excellent. Cecum ascending colon transverse colon descending sigmoid and rectum were all carefully visualized upon withdrawal found to be negative. Retroflexion to anal verge revealed mild to moderate hemorrhoids. Findings: Mild to moderate hemorrhoids otherwise negative colonoscopy to cecum with excellent bowelprep. Plan: Repeat screening colonoscopy every 10 years. Complications: None Estimated Blood Loss: 0 mL Specimens:* No orders in the log * Voice recognition software utilized. NASIM RUSSELL MD Date: 01/12/2020 Time: 9:40 AM Voice recognition software utilized. documented in this encounter Plan of Treatment Upcoming Encounters Date Type Department Care Team (Katia Contact Info) Description 07/25/2024 10:00 AM INTERNETWORKING TECHNICIAN Office Visit [facility] Medical Group Family & Internal Medicine - [place] [address] [place] [address] Keyonna Armstrong APNP [address] [place] [address] 07/31/2024 10:15 AM INTERNETWORKING TECHNICIAN Office Visit [facility], [place] [address] [place], [place] [address] Pepe Mitchell MD Three [facility]. [facility] [address] [place], [place] [id number] documented as of this encounter Procedures Procedure Name Priority Date/Time Associated Diagnosis Comments COLONOSCOPY SCREENING 01/12/2020 9:04 AM CDT SCREENING Case Notes SCHEDULED BY FAX 08/29/19 LB POCT GLUCOSE - MAJANO DOCKED DEVICE Routine 01/12/2020 7:57 AM CDT documented in this encounter Results * POCT glucose (01/12/2020 7:57 AM CDT) GLUCOSE POC 75 70 - 99 mg/dL 01/14/2020 4:05 PM CDT [facility] LAB ORDERS INTERFACE 01/12/2020 7:57 AM CDT us Nasim Russell MD POCT ORDERABLES - DEVICE Final R esult [facility] LAB ORDERS INTERFACE US documented in this encounter Visit Diagnoses Not on filedocumented in this encounter Additional Health Concerns Assessment Noted Time PHQ-9 Depression Total Score: 22 020 3:46 PM INTERNETWORKING TECHNICIAN documented as of this encounter Care Teams High School Counselor Relationship Specialty Start Date End Date Keyonna Armstrong APNP [address] [place] [address] PCP - General NURSE PRACTITIONER 05/06/18 documented as of this encounter
--- OUTSIDE RECORDS SUMMARY | 2024-07-10 22:59 | XMS_ITS | Encounter Summary ---
Author Organization [facility] Address [address] [place] [address]. [place] [id number] [place] [address] Care Team Providers Care Soap Mixer Name Role Phone Keyonna Armstrong Primary Care Provider [phone] Reason for Visit * Reason Onset Date Comments Results 08/13/2020 Encounter Details Date Type Department Care Team (Late st Contact Info) Description 08/13/2020 Telephone [facility] Medical Group Family & Internal Medicine [facility] [address] [place] [address] Keyonna Armstrong APNP [address] [place] [address] Results Social History Tobacco Use [...] CDT Gender Identity Female 07/17/2022 10:27 AM HOSPICE 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 Sexual Orientation Straight 07/17/2022 10 :27 AM HOSPICE 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 documented as of this encounter Progress Notes * Nenita Young MA - 08/16/2020 11:52 AM CST Patient notified and v/u ICE 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 * Flora Blackwell MA - 08/13/2020 12:36 PM CST Lm 08/13/20 tn ICE 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 * YOBANI Cruz - 08/13/2020 10:14 AM CST Recent mammogram showed no evidence of malignancy. Follow up screening mammo in one year. ICE 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 documented in this encounter Plan of Treatment Upcoming Encounters Date Type Department Care Team (Late st Contact Info) Description 07/25/2024 10:00 AM HOSPICE 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 Office Visit [facility] Medical Group Family & Internal Medicine - [place] [address] [place] [address] Keyonna Armstrong APNP [facility] [place] [address] 07/31/2024 10:15 AM HOSPICE 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 Office [facility], [facility] [address] [place] [address] Pepe Mitchell MD Three [facility]. [facility] [address] [place], [place] [address] documented as of this encounter Visit Diagnoses Not on filedocumented in this encounter Additional Health Concerns Assessment Noted Time PHQ-9 Depression Total Score: 22 020 3:46 PM HOSPICE 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 documented as of this encounter Care Teams Soap Mixer Relationship Specialty Start Date End Date Keyonna Armstrong APNP [facility] [place] [address] PCP - General NURSE PRACTITIONER 05/06/18 documented as of this encounter
--- OUTSIDE RECORDS SUMMARY | 2024-07-10 22:59 | XMS_ITS | Encounter Summary ---
Author Organization [facility] Address [address] [place] [address]. [place], [place] [address] [place] [address] Care Team Providers Care Soft Sugar Operator Head Name Role Phone Keyonna Armstrong Primary Care Provider [phone] Encounter Details Date Type Department Care Team (Latest Contact Info) Description 06/02/2021 Scan HEALTH INFO SRVCS Scanned, Documents Social [...] CDT Gender Identity Female 07/17/2022 10:27 AM PRESSING MACHINE TENDER Sexual Orientation Straight 07/17/2022 10 :27 AM PRESSING MACHINE TENDER COVID-19 Exposure Response Date Recorded In the last month, have you been in contact with someone who was confirmed or suspected to have Coronavirus / COVID-19? No / Unsure 05/13/2021 12:47 PM CDT documented as of this encounter Plan of Treatment Upcoming Encounters Date Type Department Care Team (Late st Contact Info) Description 07/25/2024 10:00 AM PRESSING MACHINE TENDER Office Visit [facility] Medical Group Family & Internal Medicine - [place] [address] [place] [address] Keyonna Armstrong APNP [address] [place] [address] 07/31/2024 10:15 AM PRESSING MACHINE TENDER Office Visit [facility], [facility] [address] [place] [address] Pepe Mitchell MD Three [facility]. [facility] [address] [place], [place] [id number] documented as of this encounter Visit Diagnoses Not on filedocumented in this encounter Additional Health Concerns Assessment Noted Time PHQ-9 Depression Total Score: 22 020 3:46 PM PRESSING MACHINE TENDER documented as of this encounter Care Teams Soft Sugar Operator Head Relationship Specialty Start Date End Date Keyonna Armstrong APNP [address] [place] [address] PCP - General NURSE PRACTITIONER 05/06/18 documented as of this encounter
--- OUTSIDE RECORDS SUMMARY | 2024-07-10 22:59 | XMS_ITS | Encounter Summary ---
Author Organization [facility] Address [address] [place] [address]. [place], [place] [address] [place] [address] Care Team Providers Care Child Welfare Manager Name Role Phone Keyonna Armstrong Primary Care Provider [phone] Encounter Details Date Type Department Care Team (Latest Contact Info) Description 05/13/2021 Travel Social History Tobacco Use Types Packs/Day [...] CDT Gender Identity Female 07/17/2022 10:27 AM APPLIQUE SEWER Sexual Orientation Straight 07/17/2022 10 :27 AM APPLIQUE SEWER COVID-19 Exposure Response Date Recorded In the last month, have you been in contact with someone who was confirmed or suspected to have Coronavirus / COVID-19? No / Unsure 05/13/2021 12:47 PM CDT documented as of this encounter Plan of Treatment Upcoming Encounters Date Type Department Care Team (Late st Contact Info) Description 07/25/2024 10:00 AM APPLIQUE SEWER Office Visit [facility] Medical Group Family & Internal Medicine - [place] [address] [place] [address] Keyonna Armstrong APNP [address] [place] [address] 07/31/2024 10:15 AM APPLIQUE SEWER Office Visit [facility] [address] [place] [address] Pepe Mitchell MD Three [facility]. [facility] [address] [place] [address] documented as of this encounter Visit Diagnoses Not on filedocumented in this encounter Additional Health Concerns Assessment Noted Time PHQ-9 Depression Total Score: 22 020 3:46 PM APPLIQUE SEWER documented as of this encounter Care Teams Child Welfare Manager Relationship Specialty Start Date End Date Keyonna Armstrong APNP [address] [place] [address] PCP - General NURSE PRACTITIONER 05/06/18 documented as of this encounter
--- OUTSIDE RECORDS SUMMARY | 2024-07-10 22:59 | XMS_ITS | Encounter Summary ---
Author Organization [facility] Address [address] [place] [address]. [place], [place] [address] [place] [address] Care Team Providers Care Die Cleaner Name Role Phone Keyonna Armstrong Primary Care Provider [phone] Reason for Visit * Reason Comments Lab (SCAN) Encounter Details Date Type Department Care Team (Latest Contact Info) Description 08/23/2021 Scan HEALTH INFO SRVCS Scanned, Doc Med [...] CDT Gender Identity Female 07/17/2022 10:27 AM BROOMCORN GRADER Sexual Orientation Straight 07/17/2022 10 :27 AM BROOMCORN GRADER COVID-19 Exposure Response Date Recorded In the last 10 days, have yo u been in contact with someone who was confirmed or suspected to have Coronavirus/COVID-19? No / Unsure 07/20/2022 12:13 PM BROOMCORN GRADER documented as of this encounter Plan of Treatment Upcoming Encounters Date Type Department Care Team (Late st Contact Info) Description 07/25/2024 10:00 AM BROOMCORN GRADER Office Visit [facility] Medical Group Family & Internal Medicine - [place] [address] [place] [address] Keyonna Armstrong APNP [address] [place] [address] 07/31/2024 10:15 AM BROOMCORN GRADER Office Visit [facility], [facility] [address] [place], [place] [address] Pepe Mitchell MD Three [facility]. [facility] [address] [place], [place] [phone] documented as of this encounter Procedures Procedure Name Priority Date/Time Associated Diagnosis Comments OUTSIDE LAB (SCAN ORDER) Routine 08/23/2021 documented in this encounter Results * OUTSIDE LAB (SCAN) (08/23/2021) HGB A1C 5.1 % [facility] ONBASE 08/23/2021 us Doc Med Group Scanned SCANNING Final Resu lt [facility] ONBASE documented in this encounter Visit Diagnoses Not on filedocumented in this encounter Additional Health Concerns Assessment Noted Time PHQ-9 Depression Total Score: 22 020 3:46 PM BROOMCORN GRADER documented as of this encounter Care Teams Die Cleaner Relationship Specialty Start Date End Date Keyonna Armstrong APNP [address] [place] [address] PCP - General NURSE PRACTITIONER 05/06/18 documented as of this encounter
--- OUTSIDE RECORDS SUMMARY | 2024-07-10 22:59 | XMS_ITS | Encounter Summary ---
Author Organization [facility] Address [address] [place] [address]. [place], [place] [address] [place] [address] Care Team Providers Care Mechanic Industrial Truck Name Role Phone Keyonna Armstrong Primary Care Provider [phone] Encounter Details Date Type Department Care Team (Latest Contact Info) Description 01/12/2020 Travel Social History Tobacco Use Types Packs/Day [...] CDT Gender Identity Female 07/17/2022 10:27 AM QUALITY ASSURANCE SUPERVISOR CHASSIS Sexual Orientation Straight 07/17/2022 10 :27 AM QUALITY ASSURANCE SUPERVISOR CHASSIS COVID-19 Exposure Response Date Recorded In the last month, have you been in contact with someone who was confirmed or suspected to have Coronavirus / COVID-19? No / Unsure 01/12/2020 7:07 AM CDT documented as of this encounter Plan of Treatment Upcoming Encounters Date Type Department Care Team (Late st Contact Info) Description 07/25/2024 10:00 AM QUALITY ASSURANCE SUPERVISOR CHASSIS Office Visit [facility] Medical Group Family & Internal Medicine - [place] [address] [place] [address] Keyonna Armstrong APNP [address] [place] [address] 07/31/2024 10:15 AM QUALITY ASSURANCE SUPERVISOR CHASSIS Office Visit [facility], [facility] [address] [place] [address] Pepe Mitchell MD Three [facility]. [facility] [address] [place] [address] documented as of this encounter Visit Diagnoses Not on filedocumented in this encounter Additional Health Concerns Assessment Noted Time PHQ-9 Depression Total Score: 22 020 3:46 PM QUALITY ASSURANCE SUPERVISOR CHASSIS documented as of this encounter Care Teams Mechanic Industrial Truck Relationship Specialty Start Date End Date Keyonna Armstrong APNP [address] [place] [address] PCP - General NURSE PRACTITIONER 05/06/18 documented as of this encounter
--- OUTSIDE RECORDS SUMMARY | 2024-07-10 22:59 | XMS_ITS | Encounter Summary ---
Author Organization [facility] Address [address] [place] [address]. [place], [place] [address] [place] [address] Care Team Providers Care Insurance Follow Up Representative Name Role Phone Keyonna Armstrong Primary Care Provider [phone] Encounter Details Date Type Department Care Team (Latest Contact Info) Description 05/19/2020 Scan HEALTH INFO SRVCS Scanned, Documents Social [...] CDT Gender Identity Female 07/17/2022 10:27 AM POLYSOMNOGRAPH TECH Sexual Orientation Straight 07/17/2022 10 :27 AM POLYSOMNOGRAPH TECH documented as of this encounter Plan of Treatment Upcoming Encounters Date Type Department Care Team ( Contact Info) Description 07/25/2024 10:00 AM POLYSOMNOGRAPH TECH Office Visit [facility] Medical Group Family & Internal Medicine [address] [address] Keyonna Armstrong APNP [address] [place] [address] 07/31/2024 10:15 AM POLYSOMNOGRAPH TECH Office Visit [facility], [facility] [address] [place], [place] [phone] Pepe Mitchell MD Three [facility]. [facility] [address] [place] [address] documented as of this encounter Visit Diagnoses Not on filedocumented in this encounter Additional Health Concerns Assessment Noted Time PHQ-9 Depression Total Score: 22 020 3:46 PM POLYSOMNOGRAPH TECH documented as of this encounter Care Teams Insurance Follow Up Representative Relationship Specialty Start Date End Date Keyonna Armstrong APNP [address] [place] [address] PCP - General NURSE PRACTITIONER 05/06/18 documented as of this encounter
--- OUTSIDE RECORDS SUMMARY | 2024-07-10 22:59 | XMS_ITS | Encounter Summary ---
Author Organization [facility] Address [address] [place] [address]. [place], [place] [address] [place] [address] Care Team Providers Care Fish Rod Maker Name Role Phone Keyonna Armstrong Primary Care Provider [phone] Reason for Visit * Reason Comments Mammogram (SCAN) Encounter Details Date Type Department Care Team (Late Contact Info) Description 08/09/2020 Scan HEALTH INFO SRVCS Scanned, Documents Mammogram (SCAN) Social History Tobacco Use Types Packs/Day [...] CDT Gender Identity Female 07/17/2022 10:27 AM PROCESS ENGINEER Sexual Orientation Straight 07/17/2022 10 :27 AM PROCESS ENGINEER documented as of this encounter Plan of Treatment Upcoming Encounters Date Type Department Care Team ([facility] Contact Info) Description 07/25/2024 10:00 AM PROCESS ENGINEER Office Visit [facility] Medical Group Family & Internal Medicine [address] [place] [address] Keyonna Armstrong APNP [address] [place] [address] 07/31/2024 10:15 AM PROCESS ENGINEER Office Visit [facility], [place] [address] [place] [address] Pepe Mitchell MD Three [facility]. [place] [address] [place] [address] documented as of this encounter Procedures Procedure Name Priority Date/Time Associated Diagnosis Comments MAMMOGRAM GENERIC (SCAN ORDER) 08/09/2020 documented in this encounter Results * MAMMOGRAM GENERIC (08/09/2020) Anatomical Region Laterality Modality Other 08/09/2020 Narrative 08/09/2020 Ordered by an unspecified provider. us Documents Scanned SCANNING Final Result documented in this encounter Visit Diagnoses Not on filedocumented in this encounter Additional Health Concerns Assessment Noted Time PHQ-9 Depression Total Score: 22 020 3:46 PM PROCESS ENGINEER documented as of this encounter Care Teams Fish Rod Maker Relationship Specialty Start Date End Date Keyonna Armstrong APNP [facility] [place] [address] PCP - General NURSE PRACTITIONER 05/06/18 documented as of this encounter
--- OUTSIDE RECORDS SUMMARY | 2024-07-10 22:59 | XMS_ITS | Encounter Summary ---
Author Organization [facility] Address [address] [place] [address]. [place] [address] [place] [address] Care Team Providers Care Electroplater Apprentice Name Role Phone Keyonna Armstrong Primary Care Provider [phone] Reason for Visit * Auth/Cert Specialty Diagnoses / Procedures Referred By Lee t Referred To Contact Diagnoses SCREENING Procedures COLONOSCOPY SCREENING Referral ID Status Reason Start Date Expiration Date Visits Re quested Visits Authorized [id number] 1 1 Encounter Details Date Type Department Care Team (Latest Contact Info) Description 01/12/2020 7:07 AM CDT - 01/12/2020 10:05 AM CDT Hospital Encounter [facility] [place] [address] Nasim Russell MD [address] [address] Discharge Disposition: Home or Self Care (Routine [...] Average Number of Drinks Not on file 11/20/2 018 Frequency of Binge Drinking Not on file 05/24 PHQ-2 Answer Date Recorded PHQ-2 Score 6 07/29/2019 Comments No Sex and Gender Information Value Date Recorded Sex Assigned at Not on file Legal Sex Female 5:47 PM CDT Gender Identity Female 07/17/2022 10:27 AM LINE PALLETIZER Sexual Orientation Straight 07/17/2022 10 :27 AM LINE PALLETIZER COVID-19 Exposure Response Date Recorded In the last month, have you been in contact with someone who was confirmed or suspected to have Coronavirus / COVID-19? No / Unsure 01/12/2020 7:07 AM CDT documented as of this encounter Last Filed Vital Signs Vital Sign Reading Time Taken Comments Blood Pressure 121/76 01/12/2020 9:55 AM CDT Pulse 91 01/12/2020 9:55 AM CDT Temperature 36.9 ??C (98.4 ??F) 01/12/2020 9:35 AM CD T Respiratory Rate 18 01/12/2020 9:55 AM CDT Oxygen Saturation 100% 01/12/2020 9:55 AM CDT Inhaled Oxygen Concentration - - Weight 133.8 kg (295 lb) 01/06/2020 12:47 PM CDT Height 165.1 cm (5' 5) 01/06/2020 12:47 PM CDT Body Mass Index 49.09 01/06/2020 12:47 PM CDT documented in this encounter Discharge Instructions * Attachments The following attachments cannot be sent through Care Everywhere. * Colonoscopy Discharge Instructions (Venezuelan) * General Anesthesia Discharge Instructions (Venezuelan) documented in this encounter Medications at Time [...] Russell MD - 01/12/2020 9:37 AM CDT [facility] OpNote COLONOSCOPY SCREENING Procedure Note Veronica Evangelista 01/12/2020 0900 Procedure(s) (LRB): COLONOSCOPY SCREENING (N/A) Surgeon(s): Nasim Russell MD Staff: GI Nurse: Hope Aguilera RN hammerer tab: Joaquin Christensen Anesthesia: General Anesthesiologist: Amber Blanton [...] st Contact Info) Description 07/25/2024 10:00 AM LINE PALLETIZER Office Visit [facility] Medical Group Family & Internal Medicine - [place] [address] [place] [address] Keyonna Armstrong APNP [address] [place] [address] 07/31/2024 10:15 AM LINE PALLETIZER Office Visit [facility] [place] [address] [place] [address] Pepe Mitchell MD Three [facility]. [place] [address] [place] [address] documented as of this encounter Procedures Procedure Name Priority Date/Time Associated Diagnosis Comments COLONOSCOPY SCREENING 01/12/2020 9:04 AM CDT SCREENING Case Notes SCHEDULED BY FAX 08/29/19 LB POCT GLUCOSE - MAJANO DOCKED DEVICE Routine 01/12/2020 7:57 AM CDT documented in this encounter Results * POCT glucose (01/12/2020 7:57 AM CDT) GLUCOSE POC 75 70 - 99 mg/dL 01/14/2020 4:05 PM CDT [facility] LAB ORDERS INTERFACE 01/12/2020 7:57 AM CDT us Nasim Russell MD POCT ORDERABLES - DEVICE Final R esult [facility] LAB ORDERS INTERFACE US documented in this encounter Visit Diagnoses Not on filedocumented in this encounter Additional Health Concerns Assessment Noted Time PHQ-9 Depression Total Score: 22 020 3:46 PM LINE PALLETIZER documented as of this encounter Care Teams Electroplater Apprentice Relationship Specialty Start Date End Date Keyonna Armstrong APNP [address] [place] [address] PCP - General NURSE PRACTITIONER 05/06/18 documented as of this encounter
--- OUTSIDE RECORDS SUMMARY | 2024-07-10 22:59 | XMS_ITS | Encounter Summary ---
Author Organization [facility] Address [address] [place] [address]. [place], [place] [address] [place] [address] Care Team Providers Care Mannequin Coloring Artist Name Role Phone Keyonna Armstrong Primary Care Provider [phone] Encounter Details Date Type Department Care Team (Late st Contact Info) Description 01/09/2020 Prep for Procedure [facility] One [place], [place] [address] Burt Payne MD 3 [facility] [place] [address] [place] [address] Social History Tobacco Use Types Packs/Day Years [...] CDT Gender Identity Female 07/17/2022 10:27 AM ACCOUNT SERVICES MANAGER Sexual Orientation Straight 07/17/2022 10 :27 AM ACCOUNT SERVICES MANAGER COVID-19 Exposure Response Date Recorded In the last month, have you been in contact with someone who was confirmed or suspected to have Coronavirus / COVID-19? No / Unsure 01/12/2020 7:07 AM CDT documented as of this encounter Plan of Treatment Upcoming Encounters Date Type Department Care Team (Late st Contact Info) Description 07/25/2024 10:00 AM ACCOUNT SERVICES MANAGER Office Visit [facility] Family & Internal Medicine [facility] [address] [place] [address] Keyonna Armstrong, YOBANI [address] [place] [address] 07/31/2024 10:15 AM ACCOUNT SERVICES MANAGER [facility] [place], [facility] [address] [place], [place] [address] Pepe Mitchell MD Three [facility]. [facility] [address] [place] [address] documented as of this encounter Results * PRE-SURGICAL/PRE-PROCEDURE CORONAVIRUS (COVID 19) (01/09/2020 1:54 PM CDT) CORONAVIRUS SARS COV 2 PCR (RESP) NOT DETECTED NOT DETECTED 01/10/2020 9:43 PM CDT [facility] Comment: A Not Detected (negative) test result [...] providers and patients using the following websites: https://www.Searcheeze.com/home/Covid-19/HCP/QuestIVD/fact- sheet.html https://www.[facility]eze.BuzzSpice/home/Covid-19/Patients/ QuestIVD/fact-sheet.html This test has been authorized by the FDA under an Emergency Use Authorization (EUA) for use by authorized laboratories. Due to the current public health emergency, [facility] is receiving a high volume of samples [...] about COVID-19 can be found at the [facility] website: www.Interwise.BuzzSpice/Covid19. Test performed at [facility] [place] [address] [place], [place] ??[address] Director: GENE VILLAR DO,MPH NASOPHARYNGEAL SWAB / Unknown 01/09/2020 1:54 PM CDT us Burt Payne MD MICROBIOLOGY - GENERAL ORDERABLE S Final Result [facility] [address] documented in this encounter Visit Diagnoses Diagnosis Encounter for screening colonoscopy- Primary Special screening for malignant neoplasms, colon documented in this encounter Additional Health Concerns Infection Onset Date Last Indicated Resolved Time COVID-19 Rule Out 01/09/2020 01/09/2020 01/10/2020 9:43 PM CDT Assessment Noted Time PHQ-9 Depression Total Score: 22 020 3:46 PM ACCOUNT SERVICES MANAGER documented as of this encounter Care Teams Mannequin Coloring Artist Relationship Specialty Start Date End Date Keyonna Armstrong APNP [address] [place] [address] PCP - General NURSE PRACTITIONER 05/06/18 documented as of this encounter
--- OUTSIDE RECORDS SUMMARY | 2024-07-10 22:59 | XMS_ITS | Encounter Summary ---
Author Organization [facility] Address [address] [place] [address]. [place], [place] [address] [place] [address] Care Team Providers Care Welder Fitter Name Role Phone Keyonna Armstrong Primary Care Provider [phone] Encounter Details Date Type Department Care Team (Latest Contact Info) Description 04/18/2021 Scan HEALTH INFO SRVCS Scanned, Documents Social [...] CDT Gender Identity Female 07/17/2022 10:27 AM HEADING AND PRIMING TOOL SETTER Sexual Orientation Straight 07/17/2022 10 :27 AM HEADING AND PRIMING TOOL SETTER documented as of this encounter Plan of Treatment Upcoming Encounters Date Type Department Care Team ( Contact Info) Description 07/25/2024 10:00 AM HEADING AND PRIMING TOOL SETTER Office Visit [facility] Medical Group Family & Internal Medicine [address] [address] Keyonna Armstrong APNP [address] [place] [address] 07/31/2024 10:15 AM HEADING AND PRIMING TOOL SETTER Office Visit [facility] [address] [place] [address] Pepe Mitchell MD Three [facility]. [facility] [address] [place] [address] documented as of this encounter Visit Diagnoses Not on filedocumented in this encounter Additional Health Concerns Assessment Noted Time PHQ-9 Depression Total Score: 22 020 3:46 PM HEADING AND PRIMING TOOL SETTER documented as of this encounter Care Teams Welder Fitter Relationship Specialty Start Date End Date Keyonna Armstrong APNP [address] [place] [address] PCP - General NURSE PRACTITIONER 05/06/18 documented as of this encounter
--- OUTSIDE RECORDS SUMMARY | 2024-07-10 22:59 | XMS_ITS | Encounter Summary ---
Author Organization [facility] Address [address] [place] [address]. [place], [place] [address] [place] [address] Care Team Providers Care Supervisor Picking Crew Name Role Phone Keyonna Armstrong Primary Care Provider [phone] Reason for Visit * Reason Onset Date Comments Schedule Surgery 09/17/2019 Encounter Details Date Type Department Care Team (Late st Contact Info) Description 09/17/[address] [facility] Multispecialty Care - [facility] [address] [facility] [address] [place] [address] Burt Payne MD 3 [facility] [place] [address] [place] [id number] Schedule Surgery Social History Tobacco Use Types Packs/Day Years [...] CDT Gender Identity Female 07/17/2022 10:27 AM HEAD NURSE Sexual Orientation Straight 07/17/2022 10 :27 AM HEAD NURSE documented as of this encounter Progress Notes * Sasha Richardson MA - 09/17/2019 1:45 PM CST Spoke with pt procedure rescheduled for 10/06/2019 @ 10:30am NURSE * Sasha Richardson MA - 09/17/2019 10:57 AM CST Called pt to reschedule procedure due to Dr. Payne being out tomorrow. LVM for pt to return call. NURSE documented in this encounter Plan of Treatment Upcoming Encounters Date Type Department Care Team (Late st Contact Info) Description 07/25/2024 10:00 AM HEAD NURSE Office Visit [facility] Medical [facility] Family & Internal Medicine [place] [address] [place] [address] Keyonna Armstrong APNP [address] [place] [address] 07/31/2024 10:15 AM HEAD NURSE Office Visit [facility] [address] [place] [address] Pepe Mitchell MD Three [facility]. [facility] [address] [place] [address] documented as of this encounter Visit Diagnoses Not on filedocumented in this encounter Additional Health Concerns Assessment Noted Time PHQ-9 Depression Total Score: 22 020 3:46 PM HEAD NURSE documented as of this encounter Care Teams Supervisor Picking Crew Relationship Specialty Start Date End Date Keyonna Armstrong APNP [address] [place] [address] PCP - General NURSE PRACTITIONER 05/06/18 documented as of this encounter
--- OUTSIDE RECORDS SUMMARY | 2024-07-10 22:59 | XMS_ITS | Encounter Summary ---
Author Organization [facility] Address [address] [place] [address]. [place], [place] [address] [place] [address] Care Team Providers Care Assurance Sourcing Manager Name Role Phone Keyonna Armstrong Primary Care Provider [phone] Encounter Details Date Type Department Care Team (Latest Contact Info) Description 09/17/2020 Travel Social History Tobacco Use Types Packs/Day [...] CDT Gender Identity Female 07/17/2022 10:27 AM DRAW STRING KNOTTER Sexual Orientation Straight 07/17/2022 10 :27 AM DRAW STRING KNOTTER COVID-19 Exposure Response Date Recorded In the last month, have you been in contact with someone who was confirmed or suspected to have Coronavirus / COVID-19? No / Unsure 09/17/2020 11:25 AM DRAW STRING KNOTTER documented as of this encounter Plan of Treatment Upcoming Encounters Date Type Department Care Team (Late st Contact Info) Description 07/25/2024 10:00 AM DRAW STRING KNOTTER Office Visit [facility] Medical Group Family & Internal Medicine - [place] [address] [place] [address] Keyonna Armstrong APNP [address] [place] [address] 07/31/2024 10:15 AM DRAW STRING KNOTTER Office Visit [facility] THREE [facility], [facility] [address] [place] [address] Pepe Mitchell MD Three [facility]. [facility] [address] [place] [address] documented as of this encounter Visit Diagnoses Not on filedocumented in this encounter Additional Health Concerns Assessment Noted Time PHQ-9 Depression Total Score: 22 020 3:46 PM DRAW STRING KNOTTER documented as of this encounter Care Teams Assurance Sourcing Manager Relationship Specialty Start Date End Date Keyonna Armstrong APNP [address] [place] [address] PCP - General NURSE PRACTITIONER 05/06/18 documented as of this encounter
--- OUTSIDE RECORDS SUMMARY | 2024-07-10 22:59 | XMS_ITS | Encounter Summary ---
Author Organization [facility] Address [address] [place] [address]. [place] [id number] [place] [address] Care Team Providers Care Blow Pit Helper Name Role Phone Keyonna Armstrong Primary Care Provider [phone] Reason for Visit * Reason Onset Date Comments Follow Up Call 09/10/2019 Encounter Details Date Type Department Care Team (Late st Contact Info) Description 09/10/2019 Telephone [facility] Medical Group Family & Internal Medicine [facility] [address] [place] [address] Keyonna Armstrong APNP [address] [place] [address] Follow Up Call Social History Tobacco Use Types Packs/Day Years [...] CDT Gender Identity Female 07/17/2022 10:27 AM BOARDING SPECIALIST Sexual Orientation Straight 07/17/2022 10 :27 AM BOARDING SPECIALIST documented as of this encounter Progress Notes * Nenita Young MA - 09/15/2019 11:35 AM CST informed and v/u , he will have patient come sign ROSHAN DING SPECIALIST * Nenita Young MA - 09/11/2019 5:33 PM CST Psych office called and informed me the ROSHAN MUST be signed for them to send records DING SPECIALIST * Marcella Alvarenga MA - 09/11/2019 3:35 PM CST Pt's called to ask why he needs to fill out a release of records when he already did with their office? I informed him that every office is different with their property and [employer]. He explained to me that he has already been in contact with their office and has asked them to fax us records.I informed him that we have yet to receive anything. He will keep up on them and we will keep waiting. DING SPECIALIST * Nenita Young MA - 09/11/2019 3:15 PM CST Patient needs to sign ROSHAN to be faxed to [phone]. [email or web address] DING SPECIALIST DING SPECIALIST * Sherlyn Omalley RN - 09/10/2019 3:07 PM CST Spoke to patient; verbalized understanding. She will have them fax over the records for psych. DING SPECIALIST * YOBANI Cruz - 09/10/2019 1:54 PM CST Patient did drop off a letter and I was able to read it. She did indicate in her letter that all she wanted to do is try it. It is now legal in [place] and if so all she wants to do is try it she can go buy it and try it. She does not need a medical cannabis card for this. Also, I still do not have any of the appropriate diagnoses listed in her chart. If she wants to tryto provide me with the medical records from her psychiatrist office, fine I will consider at that time. Please let her know I am not trying to be difficult. I am just trying to do this the most legal wayI know how. DING SPECIALIST * Sosa Brown CMA - 09/10/2019 12:03 PM CST is asking about there status of the paperwork for Medical cannabis card. They want to know if we are able to fill it out of not KAILEY. DING SPECIALIST documented in this encounter Plan of Treatment Upcoming Encounters Date Type Department Care Team (Late st Contact Info) Description 07/25/2024 10:00 AM BOARDING SPECIALIST Office Visit [facility] Medical Group Family & Internal Medicine [facility] [address] [place] [address] Keyonna Armstrong APNP [address] [place] [address] 07/31/2024 10:15 AM BOARDING SPECIALIST Office [facility], [facility] [address] [place], [place] [address] Pepe Mitchell MD [facility]. [facility] [address] [place] [address] documented as of this encounter Visit Diagnoses Not on filedocumented in this encounter Additional Health Concerns Assessment Noted Time PHQ-9 Depression Total Score: 22 020 3:46 PM BOARDING SPECIALIST documented as of this encounter Care Teams Blow Pit Helper Relationship Specialty Start Date End Date Keyonna Armstrong APNP [address] [place] [address] PCP - General NURSE PRACTITIONER 05/06/18 documented as of this encounter
--- OUTSIDE RECORDS SUMMARY | 2024-07-10 22:59 | XMS_ITS | Encounter Summary ---
Author Organization [facility] Address [address] [place] [address]. [place] [id number] [place] [address] Care Team Providers Care Missile Tracking Technician Name Role Phone Keyonna Armstrong Primary Care Provider [phone] Reason for Visit * Reason Onset Date Comments Information 08/18/2021 Encounter Details Date Type Department Care Team (Late st Contact Info) Description 08/18/2021 Telephone [facility] Medical Group Family & Internal Medicine [facility] [address] [place] [address] Keyonna Armstrong APNP [address] [place] [address] Information Social History Tobacco Use [...] CDT Gender Identity Female 07/17/2022 10:27 AM CHANNEL SALES MANAGER Sexual Orientation Straight 07/17/2022 10 :27 AM CHANNEL SALES MANAGER documented as of this encounter Progress Notes * Keyla Stallings MA - 08/18/2021 2:24 PM CST Pt's parking placard is ready to rock picker. A copy was made. One is scanning. The other copy is up front for pt.she will rock picker tomorrow 08/19/2021. Pt was contacted. BB 08/18/2021 NEL SALES MANAGER documented in this encounter Plan of Treatment Upcoming Encounters Date Type Department Care Team (Late st Contact Info) Description 07/25/2024 10:00 AM CHANNEL SALES MANAGER Office Visit [facility] Medical Group Family & Internal Medicine [place] [phone] [place] [address] Keyonna Armstrong APNP [address] [place] [address] 07/31/2024 10:15 AM CHANNEL SALES MANAGER Office Visit [facility], [facility] [address] [place] [address] Pepe Mitchell MD Three [facility]. [facility] [address] [place] [address] documented as of this encounter Visit Diagnoses Not on filedocumented in this encounter Additional Health Concerns Assessment Noted Time PHQ-9 Depression Total Score: 22 020 3:46 PM CHANNEL SALES MANAGER documented as of this encounter Care Teams Missile Tracking Technician Relationship Specialty Start Date End Date Keyonna Armstrong APNP [address] [place] [address] PCP - General NURSE PRACTITIONER 05/06/18 documented as of this encounter
--- OUTSIDE RECORDS SUMMARY | 2024-07-10 22:59 | XMS_ITS | Encounter Summary ---
Author Organization [facility] Address [address] [place] [address]. [place], [place] [address] [place] [address] Care Team Providers Care Operations Lead Name Role Phone Keyonna Armstrong Primary Care Provider [phone] Encounter Details Date Type Department Care Team (Latest Contact Info) Description 01/06/2020 Travel Social History Tobacco Use Types Packs/Day [...] CDT Gender Identity Female 07/17/2022 10:27 AM TUBER OPERATOR Sexual Orientation Straight 07/17/2022 10 :27 AM TUBER OPERATOR COVID-19 Exposure Response Date Recorded In the last month, have you been in contact with someone who was confirmed or suspected to have Coronavirus / COVID-19? No / Unsure 01/06/2020 12:48 PM CDT documented as of this encounter Plan of Treatment Upcoming Encounters Date Type Department Care Team (Late st Contact Info) Description 07/25/2024 10:00 AM TUBER OPERATOR Office Visit [facility] Medical Group Family & Internal Medicine - [place] [address] [place] [address] Keyonna Armstrong APNP [address] [place] [address] 07/31/2024 10:15 AM TUBER OPERATOR Office Visit [facility], [facility] [address] [place] [address] Pepe Mitchell MD Three [facility]. [facility] [address] [place] [address] documented as of this encounter Visit Diagnoses Not on filedocumented in this encounter Additional Health Concerns Assessment Noted Time PHQ-9 Depression Total Score: 22 020 3:46 PM TUBER OPERATOR documented as of this encounter Care Teams Operations Lead Relationship Specialty Start Date End Date Keyonna Armstrong APNP [address] [place] [address] PCP - General NURSE PRACTITIONER 05/06/18 documented as of this encounter
--- OUTSIDE RECORDS SUMMARY | 2024-07-10 22:59 | XMS_ITS | Encounter Summary ---
Author Organization [facility] Address [address] [place] [address]. [place], [place] [id number] [place] [address] Care Team Providers Care Clipper Counters Name Role Phone Keyonna Armstrong Primary Care Provider [phone] Encounter Details Date Type Department Care Team (Latest Contact Info) Description 05/04/2021 Scan HEALTH INFO SRVCS Scanned, Documents Social [...] CDT Gender Identity Female 07/17/2022 10:27 AM RELIABILITY ENGINEER Sexual Orientation Straight 07/17/2022 10 :27 AM RELIABILITY ENGINEER documented as of this encounter Plan of Treatment Upcoming Encounters Date Type Department Care Team ( Contact Info) Description 07/25/2024 10:00 AM RELIABILITY ENGINEER Office Visit [facility] Family & Internal Medicine [address] [address] Keyonna Armstrong APNP [address] [place] [address] 07/31/2024 10:15 AM RELIABILITY ENGINEER Office Visit [facility], [facility] [address] [place] [address] Pepe Mitchell MD Three [facility]. [facility] [address] [place] [address] documented as of this encounter Visit Diagnoses Not on filedocumented in this encounter Additional Health Concerns Assessment Noted Time PHQ-9 Depression Total Score: 22 020 3:46 PM RELIABILITY ENGINEER documented as of this encounter Care Teams Clipper Counters Relationship Specialty Start Date End Date Keyonna Armstrong APNP [address] [place] [address] PCP - General NURSE PRACTITIONER 05/06/18 documented as of this encounter
--- OUTSIDE RECORDS SUMMARY | 2024-07-10 22:59 | XMS_ITS | Encounter Summary ---
Author Organization [facility] Address [address] [place] [address]. [place], [place] [id number] [place] [address] Care Team Providers Care Supervisor Money Room Name Role Phone Keyonna Armstrong Primary Care Provider [phone] Reason for Visit * Reason Onset Date Comments Consult 08/28/2019 Encounter Details Date Type Department Care Team (Late st Contact Info) Description 08/28/2019 Telephone [facility] [address] Susi Parikh RMA Consult Social History Tobacco [...] CDT Gender Identity Female 07/17/2022 10:27 AM ELECTRIC UTILITY LINEWORKER Sexual Orientation Straight 07/17/2022 10 :27 AM ELECTRIC UTILITY LINEWORKER documented as of this encounter Progress Notes * TINO Knowles - 08/28/2019 10:27 AM CST Several messages left (x3) for cardiology consult per Keyonna Armstrong NP with no response. Will sendletter to patient to contact our office for appointment. TRIC UTILITY LINEWORKER documented in this encounter Plan of Treatment Upcoming Encounters Date Type Department Care Team (Late st Contact Info) Description 07/25/2024 10:00 AM ELECTRIC UTILITY LINEWORKER Office Visit [facility] Family & Internal Medicine - [place] [address] [place] [address] Keyonna Armstrong APNP [address] [place] [address] 07/31/2024 10:15 AM ELECTRIC UTILITY LINEWORKER Office Visit [facility] THREE [facility], [facility] [address] [place] [phone] Pepe Mitchell MD [facility] [place] [facility]. [facility] [address] [place], [place] [id number] documented as of this encounter Visit Diagnoses Not on filedocumented in this encounter Additional Health Concerns Assessment Noted Time PHQ-9 Depression Total Score: 22 020 3:46 PM ELECTRIC UTILITY LINEWORKER documented as of this encounter Care Teams Supervisor Money Room Relationship Specialty Start Date End Date Kyeonna Armstrong APNP [address] [place] [address] PCP - General NURSE PRACTITIONER 05/06/18 documented as of this encounter
--- OUTSIDE RECORDS SUMMARY | 2024-07-10 22:59 | XMS_ITS | Encounter Summary ---
Author Organization [facility] Address [address] [place] [address]. [place], [place] [phone] [place] [address] Care Team Providers Care Inventory Coordinator Name Role Phone Keyonna Armstrong Primary Care Provider [phone] Encounter Details Date Type Department Care Team (Latest Contact Info) Description 08/19/2021 Scan [facility] HEALTH INFO SRVCS Scanned, Doc [...] CDT Gender Identity Female 07/17/2022 10:27 AM CLINICAL RESEARCH NURSE COORDINATOR Sexual Orientation Straight 07/17/2022 10 :27 AM CLINICAL RESEARCH NURSE COORDINATOR COVID-19 Exposure Response Date Recorded In the last 10 days, have yo u been in contact with someone who was confirmed or suspected to have Coronavirus/COVID-19? No / Unsure 07/20/2022 12:13 PM CLINICAL RESEARCH NURSE COORDINATOR documented as of this encounter Plan of Treatment Upcoming Encounters Date Type Department Care Team (Late st Contact Info) Description 07/25/2024 10:00 AM CLINICAL RESEARCH NURSE COORDINATOR Office Visit [facility] Family & Internal Medicine - [place] [address] [place] [address] Keyonna Armstrong APNP [address] [place] [address] 07/31/2024 10:15 AM CLINICAL RESEARCH NURSE COORDINATOR Office Visit [facility], [facility] [address] [place] [address] Pepe Mitchell MD Three [facility]. [facility] [address] [place], [place] [phone] documented as of this encounter Visit Diagnoses Not on filedocumented in this encounter Additional Health Concerns Assessment Noted Time PHQ-9 Depression Total Score: 22 020 3:46 PM CLINICAL RESEARCH NURSE COORDINATOR documented as of this encounter Care Teams Inventory Coordinator Relationship Specialty Start Date End Date Keyonna Armstrong APNP [address] [place] [address] PCP - General NURSE PRACTITIONER 05/06/18 documented as of this encounter
--- OUTSIDE RECORDS SUMMARY | 2024-07-10 22:59 | XMS_ITS | Encounter Summary ---
Author Organization [facility] Address [address] [place] [address]. [place], [place] [phone] [place] [address] Care Team Providers Care Veterinary Microbiologist Name Role Phone Keyonna Armstrong Primary Care Provider [phone] Reason for Visit * Reason Onset Date Comments Medication 10/30/2019 Encounter Details Date Type Department Care Team (Late st Contact Info) Description 10/30/2019 Telephone [facility] Family & Internal Medicine [facility] [address] [place] [address] Keyonna Armstrong APNP [address] [place] [address] Medication Social History Tobacco Use [...] CDT Gender Identity Female 07/17/2022 10:27 AM VP [employer] Sexual Orientation Straight 07/17/2022 10 :27 AM VP [employer] documented as of this encounter Progress Notes * Sherlyn Omalley RN - 11/03/2019 9:13 AM CDT Spoke to patient; verbalized understanding. * Sherlyn Omalley RN - 10/31/2019 12:28 PM CDT LMTC 10/31/19 * YOBANI Cruz - 10/31/2019 12:05 PM CDT That's fine---I have prescribed all of those before for her. * Precious Oviedo - 10/30/2019 11:46 AM CDT [facility] calling, pt seems to be doing well with current med regimen. She is calling because pt would like to know if you would be able to take over Lorazepam effexor In addition to us already rxing ambien and wellbutrin. If we take over all, pt would not have to see her anymore. documented in this encounter Plan of Treatment Upcoming Encounters Date Type Department Care Team (Late st Contact Info) Description 07/25/2024 10:00 AM VP [employer] Office Visit [facility] Family & Internal Medicine - [place] [address] [place] [address] Keyonna Armstrong APNP [address] [place] [address] 07/31/2024 10:15 AM VP [employer]ETING SERVICES [employer]IN Office Visit [facility] THREE [facility], [facility] [address] [place], [place] [phone] Pepe Mitchell MD Three [facility]. [facility] [address] [place] [address] documented as of this encounter Visit Diagnoses Not on filedocumented in this encounter Additional Health Concerns Assessment Noted Time PHQ-9 Depression Total Score: 22 020 3:46 PM [employer] documented as of this encounter Care Teams Veterinary Microbiologist Relationship Specialty Start Date End Date Keyonna Armstrong APNP [address] [place] [address] PCP - General NURSE PRACTITIONER 05/06/18 documented as of this encounter
--- OUTSIDE RECORDS SUMMARY | 2024-07-10 22:59 | XMS_ITS | Encounter Summary ---
Author Organization [facility] Address [address] [place] [address]. [place], [place] [phone] [place] [address] Care Team Providers Care Stockholder Name Role Phone Keyonna Armstrong Primary Care Provider [phone] Encounter Details Date Type Department Care Team [...] Gender Identity Female 07/17/2022 10:27 AM RN PATIENT SERVICES Sexual Orientation Straight 07/17/2022 10 :27 AM RN PATIENT SERVICES documented as of this encounter Plan of Treatment Upcoming Encounters Date Type Department Care Team ( Contact Info) Description 07/25/2024 10:00 AM RN PATIENT SERVICES Office Visit [facility] Family & Internal Medicine [address] [address] Keyonna Armstrong APNP [address] [place] [address] 07/31/2024 10:15 AM RN PATIENT SERVICES Office Visit [facility], [facility] [address] [place] [address] Pepe Mitchell MD Three [facility]. [facility] [address] [place] [address] documented as of this encounter Visit Diagnoses Not on filedocumented in this encounter Additional Health Concerns Assessment Noted Time PHQ-9 Depression Total Score: 22 020 3:46 PM RN PATIENT SERVICES documented as of this encounter Care Teams Stockholder Relationship Specialty Start Date End Date Keyonna Armstrong APNP [address] [place] [address] PCP - General NURSE PRACTITIONER 05/06/18 documented as of this encounter
--- OUTSIDE RECORDS SUMMARY | 2024-07-10 22:59 | XMS_ITS | Encounter Summary ---
Author Organization [facility] Address Formerly [facility]6 [facility] [place]. [place], [place] [address] [place] [address] Care Team Providers Care Oyster Washer Name Role Phone Keyonna Armstrong Primary Care Provider [phone] Reason for Visit * Reason Comments New Patient colonscopy screening * Consultation (Routine) - Closed Specialty Diagnoses / Procedures Referred By Contac t Referred To Contact GASTROENTEROLOGY Diagnoses Colon cancer screening Keyonna Armstrong APNP [address] [place] [address] Phone: tel: fax: Burt Payne MD [address] [address] Phone: tel: fax: Referral ID Status Reason Start Date Expiration Date Visits Re quested Visits Authorized [id number] Closed 08/08/2019 03/05/2020 7 7 Encounter Details Date Type Department Care Team (Latest Contact Info) Description 08/28/2019 1:00 PM SEWER CONTRACTOR Office Visit [facility] Multispecialty Care - [facility] [address] [facility] [place] [address] Burt Payne MD 3 [facility] [place] [address] [place] [address] Kendal Sebastian NP 3 [facility]. [place] [address] [place] [address] New Patient (colonscopy screening) Social History Tobacco Use Types Packs/Day Years [...] CDT Gender Identity Female 07/17/2022 10:27 AM SEWER CONTRACTOR Sexual Orientation Straight 07/17/2022 10 :27 AM SEWER CONTRACTOR documented as of this encounter Last Filed Vital Signs Vital Sign Reading Time Taken Comments Blood Pressure 110/62 08/28/2019 1:03 PM SEWER CONTRACTOR Pulse 87 08/28/2019 1:03 PM SEWER CONTRACTOR Temperature 36.5 ??C (97.7 ??F) 08/28/2019 1:03 PM CS T Respiratory Rate 20 08/28/2019 1:03 PM SEWER CONTRACTOR Oxygen Saturation 98% 08/28/2019 1:03 PM SEWER CONTRACTOR Inhaled Oxygen Concentration - - Weight 134.3 kg (296 lb) 08/28/2019 1:03 PM SEWER CONTRACTOR Height 165.1 cm (5' 5) 08/28/2019 1:03 PM SEWER CONTRACTOR Body Mass Index 49.26 08/28/2019 1:03 PM SEWER CONTRACTOR documented in this encounter Patient Instructions * Patient Instructions* Kendal Sebastian NP - 08/28/2019 1:00 PM SEWER CONTRACTOR Images from the original note were not included. Patient Education It is recommended to consume 20-35 grams of fiber per day and at least 64 ounces/2 liters of water per day. Below are the common foods with fiber content listed for you. This will help with normal bowel movements. ?? 2018 [employer]. and/or its affiliates. All Rights Reserved. Amount of fiber in different foods Food Serving Grams of fiber Fruits Apple (with skin) 1 medium apple 4.4 Banana 1 medium banana 3.1 Oranges 1 orange 3.1 Prunes 1 cup, pitted 12.4 Juices Apple, unsweetened, with added ascorbic acid 1 cup 0.5 Grapefruit, white, canned, sweetened 1 cup 0.2 Grape, unsweetened, with added ascorbic acid 1 cup 0.5 [place] 1 cup 0.7 Vegetables Cooked Green beans 1 cup 4.0 Carrots 1/2 cup sliced 2.3 Peas 1 cup 8.8 Potato (baked, with skin) 1 medium potato 3.8 Raw [place] (with peel) 1 cucumber 1.5 Lettuce 1 cup shredded 0.5 Tomato 1 medium tomato 1.5 Spinach 1 cup 0.7 Legumes Baked beans, canned, no salt added 1 cup 13.9 Kidney beans, canned 1 cup 13.6 [place]iz beans, canned 1 cup 11.6 Lentils, boiled 1 cup 15.6 Breads, pastas, flours Bran muffins 1 medium muffin 5.2 Oatmeal, cooked 1 cup 4.0 White bread 1 slice 0.6 Whole-wheat bread 1 slice 1.9 Pasta and rice, cooked Macaroni 1 cup 2.5 Rice, brown 1 cup 3.5 Rice, white 1 cup 0.6 Spaghetti (regular) 1 cup 2.5 Nuts Almonds 1/2 cup 8.7 Peanuts 1/2 cup 7.9 To learn how much fiber and other nutrients are in different foods, visit the [place] Department of Agriculture (USDA) National Nutrient Database at: http://www.nal.usda.gov/fnic/foodcomp/search/. Created using data from the USDA National Nutrient Database for Standard Reference. Available at http://www.nal.usda.gov/fnic/foodcomp/search/. Graphic 58686 Version 4.0 Patient Education Acid Reflux (Gastroesophageal Reflux Disease) Discharge Instructions, Adult About this topic GERD stands for gastroesophageal reflux disease. It is sometimes just called reflux. Normally, foodgoes from the mouth through the food pipe and then into the belly. The food pipe is also called theesophagus. This condition happens when the contents of the belly leak into the food pipe. This leaking can irritate the food pipe. You may feel a burning pain in your chest called heartburn. You may have burping, bloating, and belly pain after eating. GERD can be treated in many different ways. Sometimes, doctors use drugs or suggest changes in lifestyle. Other times, diet changes or surgery is needed. What care is needed at home? ?? Ask your doctor what you need to do when you go home. Make sure you ask questions if you do not understand what the doctor says. This way you will know what you need to do. ?? Maintain a healthy weight. ?? Avoid stress. ?? Avoid belts and clothes that are too tight. ?? Eat small meals more often. Do not skip meals. Do not eat large meals to make up for missed meals. ?? Avoid eating 2 to 3 hours before bedtime. ?? Do not to lie down for at least 2 hours after eating. ?? Raise the head of your bed 6 to 8 inches (15 to 20 cm). Use wooden blocks under the head of the bed. Just sleeping with your head raised on pillows is not enough. It can cause discomfort and make your signs worse. ?? Do not drink beer, wine, and mixed drinks (alcohol). ?? Do not smoke. What follow-up care is needed? Your doctor may ask you to make visits to the office to check on your progress. Be sure to keep these visits. What drugs may be needed? The doctor may order drugs to: ?? Relieve heartburn ?? Prevent reflux ?? Lessen acid production ?? Heal the esophageal lining Will physical activity be limited? Your physical activities will not be limited. What changes to diet are needed? ?? Limit caffeine intake. ?? Avoid eating oranges, berries, tomatoes, and other foods high in acid. ?? Eat only small amounts of spicy, fatty, and fried foods, or avoid them altogether. ?? Keep track of the foods that cause your signs to become worse. Avoid or limit these food items. What problems could happen? ?? Asthma ?? Precancerous changes in the food pipe ?? Long-term cough ?? Dental problems ?? Higher risk of cancer of the food pipe. This is esophageal cancer. ?? Narrowing of the food pipe. This is a stricture. ?? Open sore in the food pipe. This is an ulcer. When do I need to call the doctor? ?? Pain or a feeling of food getting stuck in your throat ?? Frequent throwing up or throwing up fluid that looks like blood or coffee grounds ?? Pain in the chest or upper part of the belly ?? Very bad heartburn that lasts for a long time ?? Cough, hoarseness of voice, or bad breath ?? Wheezing, shortness of breath or other problems breathing ?? Unintended weight loss or not wanting to eat ?? You are not feeling better in 2 to 3 days or you are feeling worse Teach Back: Helping You Understand The Teach Back Method helps you understand the information we are giving you. The idea is simple. After talking with the staff, tell them in your own words what you were just told. This helps to makesure the staff has covered each thing clearly. It also helps to explain things that may have been abit confusing. Before going home, make sure you are able to do these: ?? I can tell you about my condition. ?? I can tell you what changes I need to make with my eating habits to ease the reflux. ?? I can tell you what I will do if I am throwing up fluid that looks like blood or coffee grounds. Where can I learn more? Citizen Of [place] [employer] https://familydoctor.org/condition/refluxacid-reflux/ NHS Choices https://www.nhs.uk/conditions/zetdhnrvy-uha-hwnu-reflux/ Last Reviewed Date 2018-08-27 Consumer Information Use and Disclaimer This information is not specific medical advice and does not replace information you receive from your health care provider. This is only a brief summary of general information. It does NOT include all information about conditions, illnesses, injuries, tests, procedures, treatments, therapies, discharge instructions or life-style choices that may apply to you. You must talk with your health care provider for complete information about your health and treatment options. This information should not be used to decide whether or not to accept your health care provider???s advice, instructions or recommendations. Only your health care provider has the knowledge and training to provide advice that is right for you. Copyright Copyright ?? 2019 [employer] and its affiliates and/or licensors. All rights reserved. R CONTRACTOR documented in this encounter Progress Notes * Kendal Sebastian, NEVAEH - 08/28/2019 1:00 PM CST Images from the original note were not included. Gastroenterology Initial Visit Reason for Visit: New Patient (colonscopy screening) History of Present Illness: Veronica Evangelista is a 49-year-old female being seen in clinic for referral by YOBANI Cruz for screening colonoscopy. Bowel habits are daily soft and formed. No constipation or diarrhea, no hematochezia or melena. No weight loss. Pantoprazole 40 mg daily but takes it every other day for years. Denies having EGD performed. Ondansetron 4 mg PRN 1-2 times a week before bed can have nausea and wakes up with it at times. No vomiting, dysphagia, abdominal pain, heart burn or acid reflux. Appropriate appetite. Prior abdominal surgeries: Gastric bypass 20 + years ago with 10-15 lbs loss, cholecystectomy 2018. No colonoscopies or EGDs in the past. No prior h/o hepatitis, no prior tattoos, no prior blood transfusions, no drug use, no ETOH use, and no smoking. No family history of GI/Colon Cancer. Mother and brother had cirrhosis from drugs and ETOH Brother with Crohns. NSAID/Blood thinner use: ASA 81 mg Current referral by PCP for hematology due to a consistent elevated white blood cell count and a referral in place for endocrinology for an adrenal adenoma which was diagnosed in 2018. Patient is also seeing psychiatrist. ROS: Review of Systems Constitutional: Positive for malaise/fatigue ( and night sweats during past month with wellbutrin).Negative for chills and fever. Negative for decreased appetite HENT: Negative for hearing loss, sore throat and tinnitus. Eyes: Glasses Respiratory: Negative for shortness of breath. Cardiovascular: Negative for chest pain and leg swelling. Gastrointestinal: Refer to HPI. Genitourinary: Negative for dysuria. Musculoskeletal: Negative for joint pain. Neurological: Negative for dizziness and seizures. Endo/Heme/Allergies: Does not bruise/bleed easily. Psychiatric/Behavioral: Positive for depression. Negative for substance abuse and suicidal ideas. The patient is nervous/anxious and has insomnia. See psychiatry Medications: Current Outpatient Medications: ??? albuterol sulfate HFA (VENTOLIN HFA) 108 (90 Base) MCG/ACT inhaler, TAKE 2 PUFFS BY MOUTH EVERY4 HOURS NEEDED FOR WHEEZING, Disp: , Rfl: ??? AMLODIPINE 5 MG tablet, TAKE 1 TABLET BY MOUTH EVERY DAY, Disp: 90 tablet, Rfl: 1 ??? BUPROPION SR 150 MG 12 hr tablet, TAKE ONE TABLET ONCE DAILY FOR 3 DAYS AND THEN INCREASE TO ONE TABLET TWICE DAILY., Disp: 60 tablet, Rfl: 2 ??? Cholecalciferol (D 5000) 125 MCG (5000 UT) Cap, Take 5,000 Units by mouth daily., Disp: , Rfl: ??? ENPRESSE-28 tablet, TAKE 1 TABLET BY MOUTH EVERY DAY, Disp: 84 tablet, Rfl: 0 ??? HYDROCHLOROTHIAZIDE 25 MG tablet, TAKE 1 TABLET BY MOUTH EVERY DAY, Disp: 30 tablet, Rfl: 0 ??? IBUPROFEN 800 MG tablet, TAKE 1 TABLET BY MOUTH EVERY 6 HOURS NEEDED FOR PAIN., Disp: 90 tablet, Rfl: 0 ??? lisinopril 40 MG tablet, Take 1 tablet (40 mg total) by mouth daily., Disp: 90 tablet, Rfl: 3 ??? lorazepam 1 MG tablet, , Disp: , Rfl: ??? METFORMIN 500 MG tablet, TAKE 1 TABLET BY MOUTH EVERY MORNING AND THEN TAKE 2 TABLETS AT BEDTIME, Disp: 270 tablet, Rfl: 0 ??? METHOCARBAMOL 750 MG Tab, TAKE 1 TO 2 TABLETS BY MOUTH 3 TIMES A DAY NEEDED, Disp: 180 tablet, Rfl: 1 ??? metoprolol succinate ER 100 MG 24 hr tablet, Take 1 tablet (100 mg total) by mouth daily., Disp: 90 tablet, Rfl: 1 ??? Na sulfate-K sulfate-Mg sulfate (SUPREP BOWEL PREP KIT) 17.5-3.13-1.6 GM/177ML Solution, Take 177 mLs by mouth every 12 (twelve) hours. Take as directed by instruction sheet., Disp: 2 Bottle, Rfl: 0 ??? ondansetron 4 MG tablet, TAKE 1 TABLET BY MOUTH EVERY 6 HOURS NEEDED FOR NAUSEA/VOMITING, Disp: , Rfl: 1 ??? pantoprazole EC 20 MG tablet, Take 1 tablet (20 mg total) by mouth daily., Disp: 30 tablet, Rfl: 1 ??? VENLAFAXINE XR 75 MG 24 hr capsule, TAKE ONE CAPSULE BY MOUTH EVERY MORNING AND TAKE 2 CAPSULESEVERY EVENING, Disp: 270 capsule, Rfl: 1 ??? ZOLPIDEM 10 MG tablet, TAKE 1 TABLET BY MOUTH NIGHTLY NEEDED FOR SLEEP, Disp: 30 tablet, Rfl: 0 Allergies: Allergies Allergen Reactions ??? Trazodone Hallucinations Medical History: Past Medical History: Diagnosis Date ??? Anxiety 09/20/2017 ??? Cholecystitis 06/11/2018 ??? Esophageal reflux 04/22/2013 ??? Hypertension 06/19/2012 ??? Insomnia 04/02/2018 ??? Menorrhagia 04/02/2018 ??? Morbid obesity (CMS/HCC) 09/23/2013 ??? Obstructive sleep apnea 08/02/2012 ??? Sinus tachycardia 09/20/2017 Surgical History: Past Surgical History: Procedure Laterality Date ??? CHOLECYSTECTOMY ??? GASTRIC BYPASS N/A 2004 Social History: Social History Tobacco Use ??? Smoking status: Never Smoker ??? Smokeless tobacco: Never Used Substance Use Topics ??? Alcohol use: No Frequency: Never ??? Drug use: No Family History: Family History Problem Relation Name Age of Onset ??? Liver Disease Mother ??? Hypertension Mother ??? Diabetes Father ??? Thyroid Sister ??? Liver Disease Brother ??? Stroke Maternal Grandmother PE: Filed Vitals: 08/28/19 1303 BP: 110/62 Pulse: 87 Resp: 20 Temp: 97.7 ??F (36.5 ??C) TempSrc: Oral SpO2: 98% Weight: 134.3 kg (296 lb) Height: 5' 5 (1.651 m) Physical Exam Constitutional: She is oriented to person, place, and time. She appears well- developed and well-nourished. Eyes: glasses Cardiovascular: Normal rate and regular rhythm. Pulmonary/Chest: Breath sounds normal. No respiratory distress. Abdominal: Soft. Bowel sounds are normal. She exhibits no distension and no mass. There is no tenderness. There is no rebound and no guarding. No hernia. Large panus with intact skin folds. Several striae. Musculoskeletal: She exhibits no edema. Neurological: She is alert and oriented to person, place, and time. Skin: Skin is warm and dry. Labs Reviewed: Lab Results Component Value Date WBC 13.3 (H) 07/29/2019 RBC 5.16 (H) 07/29/2019 HGB 14.7 07/29/2019 HCT 44.3 07/29/2019 RDW 13.8 04/25/2016 RDW 13.8 04/25/2016 PLT 463 (H) 07/29/2019 NA 137 07/29/2019 K 3.9 07/29/2019 CL 99 07/29/2019 AGAP 20 04/25/2016 AGAP 20 04/25/2016 GLU 109 (H) 07/29/2019 BUN 13 07/29/2019 CR 0.84 07/29/2019 GFRNON 81 07/29/2019 GFR 94 07/29/2019 CA 9.8 07/29/2019 ALB 3.8 07/29/2019 ALT 41 (H) 07/29/2019 AST 49 (H) 07/29/2019 ALKP 74 04/25/2016 ALKP 74 04/25/2016 Endoscopic Results Reviewed: Never performed. Diagnoses/Impression: Screening for colon cancer (primary encounter diagnosis) Gastroesophageal reflux disease, esophagitis presence not specified 1. Average colon cancer risk: Patient is overdue for screening colonoscopy. Noted isolated elevation in liver enzymes 07/29/2019 AST 49, ALT 41. However, 01/27/2019 AST was 16 ALT 18. Possibly related tomedication changes. Will want to monitor liver enzymes periodically to see if there is a consistentelevation. Denies any lower GI concerns. Will perform screening colonoscopy. 2. GERD: Patient currently on pantoprazole 40 mg every other day with inconsistent use having some breakthrough heartburn and reflux symptoms. And ondansetron PRN for nausea which she takes about 2-3times a week. She notes the nausea is worse at night and first thing in the morning. Patient has not had an EGD in the past and notes she like to avoid that if possible. Patient has a history of gastric bypass 2004. Will attempted reduction to pantoprazole 20 mg daily and attempt to wean pt off acid reducing medication if not able to do this will consider EGD. 3. Comorbid Conditions: Anxiety, GERD, HTN, insomnia, morbid obesity, ZENON, sinus tachycardia, history of gastric bypass and cholecystectomy, high serum morning, dyslipidemia, adrenal adenoma Recommendations and Plan: ?? Schedule Colonoscopy at [facility] ?? Suprep split prep ?? Stop pantoprazole 40 mg and initiate pantoprazole 20 mg daily. ?? LMP: 08/26/2019 ?? Provided patient with behavior modifications as well as food triggers in order to reduce reflux and heartburn symptoms. ?? It is recommended to consume 20-35 grams of fiber per day and at least 64 ounces/2 liters of water per day. ?? All questions answered ?? More recommendations to follow endoscopic evaluation Orders placed this encounter: Orders Placed This Encounter ??? Na sulfate-K sulfate-Mg sulfate (SUPREP BOWEL PREP KIT) 17.5-3.13-1.6 GM/177ML Solution ??? albuterol sulfate HFA (VENTOLIN HFA) 108 (90 Base) MCG/ACT inhaler ??? DISCONTD: REXULTI 1 MG tablet ??? Cholecalciferol (D 5000) 125 MCG (5000 UT) Cap ??? lorazepam 1 MG tablet ??? pantoprazole EC 20 MG tablet Risks/Benefits/Options: Patient presented with risks (can include but are not limited to: discomfort, missing lesions, allergic or adverse reaction to the sedation, perforation of the bowel or upper GI tract which may require hospitalization and surgery, bleeding, infection, aspiration), benefits, and alternatives to the procedure(s) and are in agreement to proceed as planned. Kendal Sebastian NP 08/28/2019 R CONTRACTOR documented in this encounter Plan of Treatment Upcoming Encounters Date Type Department Care Team (Late st Contact Info) Description 07/25/2024 10:00 AM SEWER CONTRACTOR Office Visit [facility] Family & Internal Medicine - [place] [address] [place] [address] Keyonna Armstrong APNP [address] [place] [address] 07/31/2024 10:15 AM SEWER CONTRACTOR Office Visit [facility], [facility] [address] [place] [address] Pepe Mitchell MD [facility]. [place] [address] [place] [address] documented as of this encounter Visit Diagnoses Diagnosis Screening for colon cancer- Primary Special screening for malignant neoplasms, colon Gastroesophageal reflux disease, esophagitis presence not specified documented in this encounter Additional Health Concerns Assessment Noted Time PHQ-9 Depression Total Score: 22 07/29/ 020 3:46 PM SEWER CONTRACTOR documented as of this encounter Care Teams Oyster Washer Relationship Specialty Start Date End Date Keyonna Armstrong APNP [address] [place], [place] [id number] PCP - General NURSE PRACTITIONER 05/06/18 documented as of this encounter
--- OUTSIDE RECORDS SUMMARY | 2024-07-10 22:59 | XMS_ITS | Encounter Summary ---
Author Organization [facility] Address [address] [place] [address]. [place] [id number] [place] [address] Care Team Providers Care Intelligence Analyst Name Role Phone Keyonna Armstrong Primary Care Provider [phone] Reason for Visit * Reason Onset Date Comments Follow Up Call 08/31/2020 Encounter Details Date Type Department Care Team (Late st Contact Info) Description 08/31/2020 Telephone [facility] Medical [facility] Family & Internal Medicine [facility] [address] [place] [address] Keyonna Armstrong APNP [address] [place] [address] Follow Up Call Social History [...] CDT Gender Identity Female 07/17/2022 10:27 AM PUBLIC HEALTH SANITARIAN Sexual Orientation Straight 07/17/2022 10 :27 AM PUBLIC HEALTH SANITARIAN documented as of this encounter Plan of Treatment Upcoming Encounters Date Type Department Care Team (Late st Contact Info) Description 07/25/2024 10:00 AM PUBLIC HEALTH SANITARIAN Office Visit [facility] Medical [facility] Family & Internal Medicine - [place] [address] [place] [address] Keyonna Armstrong APNP [address] [place] [address] 07/31/2024 10:15 AM PUBLIC HEALTH SANITARIAN Office Visit [facility], [facility] [address] [place], [place] [id number] Pepe Mitchell MD Three [facility]. [facility] [address] [place], [place] [phone] documented as of this encounter Visit Diagnoses Not on filedocumented in this encounter Additional Health Concerns Assessment Noted Time PHQ-9 Depression Total Score: 22 020 3:46 PM PUBLIC HEALTH SANITARIAN documented as of this encounter Care Teams Intelligence Analyst Relationship Specialty Start Date End Date Keyonna Armstrong APNP [address] [place] [address] PCP - General NURSE PRACTITIONER 05/06/18 documented as of this encounter
--- OUTSIDE RECORDS SUMMARY | 2024-07-10 22:59 | XMS_ITS | Encounter Summary ---
Author Organization [facility] Address [address] [place] [address]. [place], [place] [address] [place] [address] Care Team Providers Care Field Research Assistant Name Role Phone Keyonna Armstrong Primary Care Provider [phone] Encounter Details Date Type Department Care Team (Latest Contact Info) Description 11/17/2019 Scan HEALTH INFO SRVCS Scanned, Documents Social [...] CDT Gender Identity Female 07/17/2022 10:27 AM PROBATION AND PAROLE OFFICER Sexual Orientation Straight 07/17/2022 10 :27 AM PROBATION AND PAROLE OFFICER documented as of this encounter Plan of Treatment Upcoming Encounters Date Type Department Care Team (Late st Contact Info) Description 07/25/2024 10:00 AM PROBATION AND PAROLE OFFICER Office Visit [facility] Family & Internal Medicine - [place] [address] [place] [address] Keyonna Armstrong APNP [address] [place] [address] 07/31/2024 10:15 AM PROBATION AND PAROLE OFFICER Office Visit [facility] THREE [facility], [place] [address] [place] [address] Pepe Mitchell MD Three [facility]. [place] [address] [place] [address] documented as of this encounter Visit Diagnoses Not on filedocumented in this encounter Additional Health Concerns Assessment Noted Time PHQ-9 Depression Total Score: 22 020 3:46 PM PROBATION AND PAROLE OFFICER documented as of this encounter Care Teams Field Research Assistant Relationship Specialty Start Date End Date Keyonna Armstrong APNP [address] [place] [address] PCP - General NURSE PRACTITIONER 05/06/18 documented as of this encounter
--- OUTSIDE RECORDS SUMMARY | 2024-07-10 22:59 | XMS_ITS | Encounter Summary ---
Author Organization [facility] Address [address] [place] [address]. [place], [place] [id number] [place] [address] Care Team Providers Care Educational Administration Teacher Name Role Phone Keyonna Armstrong Primary Care Provider [phone] Encounter Details Date Type Department Care Team (Latest Contact Info) Description 05/19/2021 Scan HEALTH INFO SRVCS Scanned, Documents Social [...] CDT Gender Identity Female 07/17/2022 10:27 AM FERMENTING CELLARS RECEIVER Sexual Orientation Straight 07/17/2022 10 :27 AM FERMENTING CELLARS RECEIVER COVID-19 Exposure Response Date Recorded In the last month, have you been in contact with someone who was confirmed or suspected to have Coronavirus / COVID-19? No / Unsure 05/13/2021 12:47 PM CDT documented as of this encounter Plan of Treatment Upcoming Encounters Date Type Department Care Team (Late st Contact Info) Description 07/25/2024 10:00 AM FERMENTING CELLARS RECEIVER Office Visit [facility] Family & Internal Medicine - [place] [address] [place] [address] Keyonna Armstrong APNP [address] [place] [address] 07/31/2024 10:15 AM FERMENTING CELLARS RECEIVER Office Visit [facility] [address] [place] [address] Pepe Mitchell MD Three [facility]. [facility] [address], [place] [id number] documented as of this encounter Visit Diagnoses Not on filedocumented in this encounter Additional Health Concerns Assessment Noted Time PHQ-9 Depression Total Score: 22 020 3:46 PM FERMENTING CELLARS RECEIVER documented as of this encounter Care Teams Educational Administration Teacher Relationship Specialty Start Date End Date Keyonna Armstrong APNP [address] [place] [address] PCP - General NURSE PRACTITIONER 05/06/18 documented as of this encounter
--- OUTSIDE RECORDS SUMMARY | 2024-07-10 22:59 | XMS_ITS | Encounter Summary ---
Author Organization [facility] Address [facility]. [place], [place] [id number] [place] [address] Care Team Providers Care Machine Setter And Repairer Name Role Phone Keyonna Armstrong Primary Care Provider [phone] Reason for Referral * Imaging (Routine) - Closed Specialty Diagnoses / Procedures Referred By Contac t Referred To Contact RADIOLOGY Diagnoses Screening for breast cancer Procedures MG SCREENING W ROSS CATALINA DIGI Keyonna Armstrong APNP [address] [place] [address] Phone: tel: fax: [address] [address] Phone: tel: fax: Referral ID Status Reason Start Date Expiration Date Visits Re quested Visits Authorized [id number] Closed 05/19/2020 06/19/2021 1 1 Reason for Visit * Reason Onset Date Comments Breast Problem 05/19/2020 Encounter Details Date Type Department Care Team (Late st Contact Info) Description 05/19/2020 Telephone [facility] Family & Internal Medicine - [place] [address] [place] [address] Keyonna Armstrong APNP [address] [place] [address] Breast Problem Social History Tobacco Use Types Packs/Day [...] CDT Gender Identity Female 07/17/2022 10:27 AM COAT TAILOR Sexual Orientation Straight 07/17/2022 10 :27 AM COAT TAILOR documented as of this encounter Plan of Treatment Upcoming Encounters Date Type Department Care Team (Late st Contact Info) Description 07/25/2024 10:00 AM COAT TAILOR Office Visit [facility] Family & Internal Medicine [address] [address] Keyonna Armstrong APNP [address] [place] [address] 07/31/2024 10:15 AM COAT TAILOR Office Visit [facility] [address] [place] [address] Pepe Mitchell MD [facility]. [facility] [address] [place] [address] Scheduled Orders Name Type Priority Associated Diagnoses Orde r Schedule MG SCREENING W ROSS CATALINA DIGI MAMMO Routine Screening for breast cancer Ordered: 05/19/2020 documented as of this encounter Visit Diagnoses Diagnosis Screening for breast cancer- Primary Breast screening, unspecified documented in this encounter Additional Health Concerns Assessment Noted Time PHQ-9 Depression Total Score: 22 020 3:46 PM COAT TAILOR documented as of this encounter Care Teams Machine Setter And Repairer Relationship Specialty Start Date End Date Keyonna Armstrong APNP [address] [place] [address] PCP - General NURSE PRACTITIONER 05/06/18 documented as of this encounter
--- OUTSIDE RECORDS SUMMARY | 2024-07-10 22:59 | XMS_ITS | Encounter Summary ---
Author Organization [facility] Address [address] [place] [address]. [place], [place] [id number] [place] [address] Care Team Providers Care Manager Food Name Role Phone Keyonna Armstrong Primary Care Provider [phone] Encounter Details Date Type Department Care Team (Latest Contact Info) Description 05/09/2021 Scan HEALTH INFO SRVCS Scanned, Documents Social [...] CDT Gender Identity Female 07/17/2022 10:27 AM DOZER OPERATOR Sexual Orientation Straight 07/17/2022 10 :27 AM DOZER OPERATOR COVID-19 Exposure Response Date Recorded In the last month, have you been in contact with someone who was confirmed or suspected to have Coronavirus / COVID-19? No / Unsure 05/13/2021 12:47 PM CDT documented as of this encounter Plan of Treatment Upcoming Encounters Date Type Department Care Team (Late st Contact Info) Description 07/25/2024 10:00 AM DOZER OPERATOR Office Visit [facility] Medical [facility] Family & Internal Medicine - [place] [address] [place] [address] Keyonna Armstrong APNP [address] [place] [address] 07/31/2024 10:15 AM DOZER OPERATOR Office Visit [facility], [facility] [address] [place] [address] Pepe Mitchell MD Three [facility]. [facility] [address] [place], [place] [id number] documented as of this encounter Visit Diagnoses Not on filedocumented in this encounter Additional Health Concerns Assessment Noted Time PHQ-9 Depression Total Score: 22 020 3:46 PM DOZER OPERATOR documented as of this encounter Care Teams Manager Food Relationship Specialty Start Date End Date Keyonna Armstrong APNP [address] [place] [address] PCP - General NURSE PRACTITIONER 05/06/18 documented as of this encounter
--- OUTSIDE RECORDS SUMMARY | 2024-07-10 22:59 | XMS_ITS | Encounter Summary ---
Author Organization [facility] Address Formerly [facility] [place], [place] [id number] [place] [id number] Care Team Providers Care Toll Line Repairer Name Role Phone Keyonna Armstrong Primary Care Provider [phone] Reason for Referral * Consultation (Routine) - Closed Specialty Diagnoses / Procedures Referred By Lee t Referred To Contact ENDOCRINOLOGY Diagnoses Adenoma of left adrenal gland Keyonna Armstrong APNP [address] [place] [address] Phone: tel: fax: Sury Rivas MD [address] [facility] [address] [place] [address] Phone: tel: fax: Referral ID Status Reason Start Date Expiration Date Visits Re quested Visits Authorized [id number] Closed 09/27/2020 09/27/2021 6 6 ING BOAT CAPTAIN Reason for Visit * Reason Comments Other med check Encounter Details Date Type Department Care Team (Late st Contact Info) Description 09/17/2020 11:20 AM FISHING BOAT CAPTAIN Office Visit [facility] - [place] [address] [place] [address] Keyonna Armstrong APNP [address], [place] [phone] Other (med check ) Social History Tobacco Use Types Packs/Day Years [...] CDT Gender Identity Female 07/17/2022 10:27 AM FISHING BOAT CAPTAIN Sexual Orientation Straight 07/17/2022 10 :27 AM FISHING BOAT CAPTAIN COVID-19 Exposure Response Date Recorded In the last month, have you been in contact with someone who was confirmed or suspected to have Coronavirus / COVID-19? No / Unsure 09/17/2020 11:25 AM FISHING BOAT CAPTAIN documented as of this encounter Last Filed Vital Signs Vital Sign Reading Time Taken Comments Blood Pressure 102/70 09/17/2020 11:35 AM FISHING BOAT CAPTAIN Pulse 96 09/17/2020 11:35 AM FISHING BOAT CAPTAIN Temperature 36.1 ??C (96.9 ??F) 09/17/2020 11:[address] Respiratory Rate 20 09/17/2020 11:35 AM FISHING BOAT CAPTAIN Oxygen Saturation 97% 09/17/2020 11:35 AM FISHING BOAT CAPTAIN 97 Inhaled Oxygen Concentration - - Weight 130.2 kg (287 lb) 09/17/2020 11:35 AM FISHING BOAT CAPTAIN Height 165.1 cm (5' 5) 09/17/2020 11:35 AM FISHING BOAT CAPTAIN Body Mass Index 47.76 09/17/2020 11:35 AM FISHING BOAT CAPTAIN documented in this encounter Progress Notes * YOBANI Cruz - 09/17/2020 11:20 AM CST Images from the original note were not included. [facility] OFFICE VISIT Reason for Visit: Other (med check ) History of Present Illness: 50-year-old female here today to follow-up on her chronic health conditions. Obstructive sleep apnea -patient wears her CPAP nightly. Tolerates well. For the most part feels well rested in the mornings. GERD -symptoms controlled. Denies any excess belching or vomiting. Denies any bloody or black stools. Hypertension -blood pressure controlled. Denies any bothersome side effects. Denies any chest pain,shortness of breath, headache, dizziness, heart palpitations or lower extremity edema. Obesity -patient aware of her weight and a chronic health problems surrounding obesity. Will discuss treatment options today. Anxiety /depression -patient continues to follow with RIGOBERTO Bertrand. Tolerates her medicationswell and feels both her anxiety and depression are currently controlled. Denies any HI/SI. Insomnia -patient currently takes zolpidem 10 mg as needed to help with sleep. She tolerates this medication well and denies any bothersome side effects. She is aware of potential long-term effects of daily use of zolpidem. Would like to continue. Adrenal adenoma -she has previously seen endocrinology and actually referred her back to endocrinology in December 2018. Patient has never followed up. She also complains of some bilateral ear pain left worse than right for the past couple of weeks. She has heard some intermittent popping in her ears. Has not noticed any drainage. Denies any other URI type symptoms. She sees RESOURCE MANAGEMENT PLANNER for well woman care. She is due for routine fasting labs and these be ordered and sent with patient today. ROS: Review of Systems Constitutional: Negative for chills and fever. HENT: Positive for ear pain. Negative for congestion, sinus pain and sore throat. Respiratory: Negative for cough and shortness of breath. Cardiovascular: Negative for chest pain and palpitations. Gastrointestinal: Negative for abdominal pain, diarrhea, nausea and vomiting. Genitourinary: Negative for dysuria and urgency. Neurological: Negative for dizziness and headaches. Psychiatric/Behavioral: Positive for depression. Negative for suicidal ideas. The patient is nervous/anxious. Medications: Current Outpatient Medications: ??? albuterol sulfate HFA (VENTOLIN HFA) 108 (90 Base) MCG/ACT inhaler, TAKE 2 PUFFS BY MOUTH EVERY4 HOURS NEEDED FOR WHEEZING, Disp: , Rfl: ??? BUPROPION SR 150 MG 12 hr tablet, TAKE 1 TABLET BY MOUTH TWICE A DAY, Disp: 180 tablet, Rfl: 0 ??? Cholecalciferol (D 5000) 125 MCG (5000 UT) Cap, Take 5,000 Units by mouth daily., Disp: , Rfl: ??? fluticasone propionate 50 MCG/ACT nasal spray, 1 spray by Nasal route daily., Disp: 15.8 mL, Rfl: 0 ??? hydroCHLOROthiazide 25 MG tablet, Take one tablet by mouth once daily., Disp: 90 tablet, Rfl: 1 ??? IBUPROFEN 800 MG tablet, TAKE 1 TABLET BY MOUTH EVERY 12 HOURS NEEDED FOR PAIN, Disp: 90 tablet, Rfl: 0 ??? LARISSIA 0.1-20 MG-MCG tablet, , Disp: , Rfl: ??? LISINOPRIL 40 MG tablet, TAKE 1 TABLET BY MOUTH EVERY DAY, Disp: 90 tablet, Rfl: 1 ??? lorazepam 1 MG tablet, Take 1 mg by mouth every 8 (eight) hours as needed for Anxiety (regularly takes 3 tabs daily). , Disp: , Rfl: ??? metFORMIN 500 MG tablet, TAKE 1 TABLET BY MOUTH EVERY MORNING, 2 TABLETS AT BEDTIME, Disp: 270 tablet, Rfl: 1 ??? METHOCARBAMOL 750 MG Tab, TAKE 1 TO 2 TABLETS BY MOUTH 3 TIMES A DAY NEEDED, Disp: 180 tablet, Rfl: 1 ??? METOPROLOL SUCCINATE ER [...] DAY, Disp: 90 tablet, Rfl: 1 ??? VENLAFAXINE XR 75 MG 24 hr capsule, TAKE ONE CAPSULE BY MOUTH EVERY MORNING AND TAKE 2 CAPSULESEVERY EVENING, Disp: 270 capsule, Rfl: 1 ??? ZOLPIDEM 10 MG tablet, TAKE 1 TABLET BY MOUTH AT BEDTIME NEEDED FOR SLEEP, Disp: 30 [...] SCREENING performed by Burt Payne MD at [facility] ??? GASTRIC BYPASS N/A 2004 Social History: Social History Socioeconomic History ??? Marital status: Spouse name: Not on file ??? Number of children: Not on file ??? Years of education: Not on file ??? Highest education level: Not on file Occupational History ??? Not on file Social Needs ??? Financial resource strain: Not on file ??? Food insecurity Worry: Not on file Inability: Not on file ??? Transportation needs Medical: Not on file Non-medical: Not on file Tobacco Use ??? Smoking status: Never Smoker ??? Smokeless tobacco: Never Used Substance and Sexual Activity ??? Alcohol use: No Frequency: Never ??? Drug use: No ??? Sexual activity: Yes Partners: Male Lifestyle ??? Physical activity Days per week: Not on file Minutes per session: Not on file ??? Stress: Not on file Relationships ??? Social connections Talks on phone: Not on file Gets together: Not on file Attends muslim service: Not on file Active member of club or organization: Not on file Attends meetings of clubs or organizations: Not on file Relationship status: Not on file ??? Intimate partner violence Fear of current or ex partner: Patient refused Emotionally abused: Patient refused Physically abused: Patient refused Forced sexual activity: Patient refused Other Topics Concern ??? Not on file Social History Narrative ??? Not on file Family History: Family History Problem Relation Name Age of Onset ??? Liver Disease Mother ??? Hypertension Mother ??? Diabetes Father ??? Thyroid Sister ??? Liver Disease Brother ??? Stroke Maternal Grandmother PE: Physical Exam Constitutional: She is oriented to person, place, and time and well-developed, well-nourished, and in no distress. HENT: Head: Normocephalic and atraumatic. Fluid noted behind both tympanic membranes. No signs of infection noted. Eyes: Pupils are equal, round, and reactive to light. Conjunctivae and EOM are normal. No scleral icterus. Neck: Normal range of motion. Neck supple. No tracheal deviation present. Cardiovascular: Normal rate, regular rhythm and normal heart sounds. No murmur heard. Pulmonary/Chest: Effort normal and breath sounds normal. No stridor. No respiratory distress. She has no wheezes. She has no rales. Abdominal: Soft. Bowel sounds are normal. She exhibits no distension and no mass. There is no abdominal tenderness. There is no rebound and no guarding. Musculoskeletal: Normal range of motion. General: No deformity. Neurological: She is alert and oriented to person, place, and time. Gait normal. Skin: Skin is warm and dry. No rash noted. No erythema. No pallor. Psychiatric: Mood and affect normal. Nursing note and vitals reviewed. Filed Vitals: 09/17/20 1135 BP: 102/70 Pulse: 96 Resp: 20 Temp: 96.9 ??F (36.1 ??C) TempSrc: Oral SpO2: 97% Weight: 130.2 kg (287 lb) Height: 5' 5 (1.651 m) Labs: Labs Reviewed Diagnoses/Impression: 1. Obstructive sleep apnea Chronic 2. Essential hypertension TSH W/REFLEX URINALYSIS WI REFLEX TO CULTURE COMPREHENSIVE METABOLIC PANEL 3. Class 3 severe obesity due to excess calories with serious comorbidity and body mass index (BMI)of 50.0 to 59.9 in adult ([facility]) CBC W/DIFF AUTOMATED LIPID PANEL TSH W/REFLEX URINALYSIS WI REFLEX TO CULTURE COMPREHENSIVE METABOLIC PANEL 4. Gastroesophageal reflux disease, unspecified whether esophagitis present Chronic CBC W/DIFF AUTOMATED 5. Dyslipidemia Chronic LIPID PANEL 6. Anxiety Chronic TSH W/REFLEX 7. Recurrent major depressive disorder, in partial remission ([facility]) TSH W/REFLEX 8. Primary insomnia Chronic 9. BMI 45.0-49.9, adult ([facility]) CBC W/DIFF AUTOMATED LIPID PANEL TSH W/REFLEX URINALYSIS WI REFLEX TO CULTURE COMPREHENSIVE METABOLIC PANEL 10. Eustachian tube dysfunction, right fluticasone propionate 50 MCG/ACT nasal spray 11. Adenoma of left adrenal gland Ambulatory referral to Endocrinology (OTHER) Recommendations and Plan: 1. Obstructive sleep apnea Stable. Continue use of CPAP. 2. Essential hypertension - TSH W/REFLEX; Future - URINALYSIS WI REFLEX TO CULTURE; Future - COMPREHENSIVE METABOLIC PANEL; Future - TSH W/REFLEX - URINALYSIS WI REFLEX TO CULTURE - COMPREHENSIVE METABOLIC PANEL Stable. Continue meds. 3. Class 3 severe obesity due to excess calories with serious comorbidity and body mass index (BMI)of 50.0 to 59.9 in adult ([facility] - CBC W/DIFF AUTOMATED; Future - LIPID PANEL; Future - TSH W/REFLEX; Future - URINALYSIS WI REFLEX TO CULTURE; Future - COMPREHENSIVE METABOLIC PANEL; Future - CBC W/DIFF AUTOMATED - LIPID PANEL - TSH W/REFLEX - URINALYSIS WI REFLEX TO CULTURE - COMPREHENSIVE METABOLIC PANEL 4. Gastroesophageal reflux disease, unspecified whether esophagitis present - CBC W/DIFF AUTOMATED; Future - CBC W/DIFF AUTOMATED Stable. Continue meds. 5. Dyslipidemia - LIPID PANEL; Future - LIPID PANEL Plan to recheck. We will plan after results if needed. 6. Anxiety - TSH W/REFLEX; Future - TSH W/REFLEX Stable. Continue meds. 7. Recurrent major depressive disorder, in partial remission ([facility]) - TSH W/REFLEX; Future - TSH W/REFLEX Stable. Continue meds. And continue follow-up with psychiatry. 8. Primary insomnia Stable. Continue meds. 9. BMI 45.0-49.9, adult ([facility]) - CBC W/DIFF AUTOMATED; Future - LIPID PANEL; Future - TSH W/REFLEX; Future - URINALYSIS WI REFLEX TO CULTURE; Future - COMPREHENSIVE METABOLIC PANEL; Future - CBC W/DIFF AUTOMATED - LIPID PANEL - TSH W/REFLEX - URINALYSIS WI REFLEX TO CULTURE - COMPREHENSIVE METABOLIC PANEL Therapeutic lifestyle changes and dietary changes conducive to weight loss discussed with patient today. We will continue to monitor. 10. Eustachian tube dysfunction, right - fluticasone propionate 50 MCG/ACT nasal spray; 1 spray by Nasal route daily. Dispense: 15.8 mL; Refill: 0 Patient is let me know if symptoms do not improve. 11. Adenoma of left adrenal gland - Ambulatory referral to Endocrinology (OTHER) Orders Placed This Encounter ??? CBC W/DIFF AUTOMATED ??? LIPID PANEL ??? TSH W/REFLEX ??? URINALYSIS WI REFLEX TO CULTURE ??? COMPREHENSIVE METABOLIC PANEL ??? Ambulatory referral to Endocrinology (OTHER) ??? LARISSIA 0.1-20 MG-MCG tablet ??? fluticasone propionate 50 MCG/ACT nasal spray Cannot display discharge medications since this is not an admission. PCP: YOBANI Cruz 09/20/2020 Cosigned by Kel Solo MD at 10/05/2020 11:20 AM CDT ING BOAT CAPTAIN * YOBANI Cruz - 09/17/2020 11:20 AM CST TG's remain elevated---reduce sugars, carbs, fried foods and processed foods in diet Other labs are stable. Her WBC has ran high--has she ever seen a [employer] group leader in the past? documented in this encounter Plan of Treatment Upcoming Encounters Date Type Department Care Team (Late st Contact Info) Description 07/25/2024 10:00 AM FISHING BOAT CAPTAIN Office Visit [facility] [place] [address] [place] [address] Keyonna Armstrong APNP [address] [place] [address] 07/31/2024 10:15 AM FISHING BOAT CAPTAIN Office Visit [facility] [address] [place], [place] [phone] Pepe Mitchell MD [facility] [address], [place] [phone] Scheduled Referrals Name Type Priority Associated Diagnoses Orde r Schedule Ambulatory referral to Endocrinology (OTHER) Referral Routine Adenoma of left adrenal gland Ordered: 09/20/2020 documented as of this encounter Procedures Procedure Name Priority Date/Time Associated Diagnosis Comments URINALYSIS WI REFLEX TO CULTURE Routine 10/21/2020 9:43 AM CDT TSH W/REFLEX Routine 10/21/2020 9:43 AM CDT Essential hypertension Class 3 severe obesity due to excess calories with serious comorbidity and body mass index (BMI) of 50.0 to 59.9 in adult ([facility]) Anxiety Recurrent major depressive disorder, in partial remission BMI 45.0-49.9, adult ([facility]) COMPREHENSIVE METABOLIC PANEL Routine 10/21/2020 9:43 AM CDT Essential hypertension Class 3 severe obesity due to excess calories with serious comorbidity and body mass index (BMI) of 50.0 to 59.9 in adult ([facility]) BMI 45.0-49.9, adult ([facility]) LIPID PANEL Routine 10/21/2020 9:43 AM CDT Class 3 severe obesity due to excess calories with serious comorbidity and body mass index (BMI) of 50.0 to 59.9 in adult ([facility]) Dyslipidemia BMI 45.0-49.9, adult ([facility]) CBC W/DIFF AUTOMATED Routine 10/21/2020 9:43 AM CDT Class 3 severe obesity due to excess calories with serious comorbidity and body mass index (BMI) of 50.0 to 59.9 in adult ([facility]) Gastroesophageal reflux disease, unspecified whether esophagitis present BMI 45.0-49.9, adult ([facility]) documented in this encounter Results * URINALYSIS WI REFLEX TO CULTURE (10/21/2020 9:43 AM CDT) COLOR (U) YELLOW YELLOW [facility] APPEARANCE SEMEN CLEAR CLEAR [facility] SPECIFIC GRAVITY (U) 1.011 1.001 - 1.035 [facility] PH (U) 6.0 5.0 - 8.0 [facility] URINE GLUCOSE NEGATIVE NEGATIVE [facility] BILIRUBIN (U) NEGATIVE NEGATIVE [facility] KETONE (U) NEGATIVE NEGATIVE [facility] BLOOD (U) NEGATIVE NEGATIVE [facility] PROTEIN (U) NEGATIVE NEGATIVE [facility] NITRITES NEGATIVE NEGATIVE [facility] LEUKOCYTES (U) NEGATIVE NEGATIVE [facility] WBC/HPF NONE SEEN < OR = 5 /HPF [facility] RBC/HPF 0-2 < OR = 2 /HPF [facility] SQUAMOUS EPITHELIAL (U) 0-5 < OR = 5 /HPF [facility] BACTERIA (U) NONE SEEN NONE SEEN /HPF [facility] HYALINE CASTS NONE SEEN NONE SEEN /LPF [facility] REFLEX URINE CULTURE: [facility] Comment:NO CULTURE INDICATED 10/21/2020 9:43 AM CDT 10/21/2020 9:46 AM CDT Narrative [facility] - 10/22/2020 4:12 AM CDT FASTING:YES FASTING: YES Keyonna HILTON URINE ORDERABLES Final Resu lt [facility] [address] [place] [address] * COMPREHENSIVE METABOLIC PANEL (10/21/2020 9:43 AM CDT) GLUCOSE 98 65 - 99 mg/dL [facility] Comment: ? Fasting reference interval BUN 18 7 - 25 mg/dL [facility] CREATININE S/P/B 0.79 0.50 - 1.05 mg/dL [facility] Comment: For patients >49 years of age, the reference limit for Creatinine is approximately 13% higher for people identified as -Ecuadorean. EGFR NON-AFR. AMER. 86 > OR = 60 mL/min/1 .73m2 [facility] EGFR AFR. AMER. 100 > OR = 60 mL/min/1 .73m2 [facility] BUN CREATININE RATIO NOT APPLICABLE 6 - 22 (calc) [facility] SODIUM S/P/B 139 135 - 146 mmol/L [facility] POTASSIUM S/P/B 3.9 3.5 - 5.3 mmol/L [facility] CHLORIDE S/P/B 102 98 - 110 mmol/L [facility] CO2 29 20 - 32 mmol/L [facility] CALCIUM S/P/B 9.6 8.6 - 10.4 mg/dL [facility] TOTAL PROTEIN S/P/B 7.1 6.1 - 8.1 g/dL [facility] ALBUMIN S/P/B 4.2 3.6 - 5.1 g/dL [facility] GLOBULIN 2.9 1.9 - 3.7 g/dL (calc) [facility] ALBUMIN/GLOBULIN RATIO 1.4 1.0 - 2.5 (calc) [facility] BILIRUBIN TOTAL S/P/B 0.4 0.2 - 1.2 mg/dL [facility] ALKALINE PHOSPHATASE S/P/B 59 37 - 153 U/L [facility] AST 16 10 - 35 U/L [facility] ALT 20 6 - 29 U/L [facility] 10/21/2020 9:43 AM CDT 10/21/2020 9:46 AM CDT Narrative [facility] - 10/22/2020 4:12 AM CDT FASTING:YES FASTING: YES us Keyonna HILTON LABORATORY Final Resul t [facility] [address] [address] * TSH W/REFLEX (10/21/2020 9:43 AM CDT) TSH 0.84 mIU/L [facility] Comment: ?Reference Range ?> or = 20 Years ??0.40-4.50 ? Ranges ?First trimester ?0.26-2.66 ?Second trimester ?? 0.55-2.73 ?Third trimester ?0.43-2.91 10/21/2020 9:43 AM CDT 10/21/2020 9:46 AM CDT Narrative [facility] - 10/22/2020 4:12 AM CDT FASTING:YES FASTING: YES us Keyonna HILTON LABORATORY Final Resul t [facility] [address] [place] [address] * (ABNORMAL) LIPID PANEL (10/21/2020 9:43 AM CDT) CHOLESTEROL 138 <200 mg/dL [facility] HDL 39(L) > OR = 50 mg/dL [facility] TRIGLYCERIDES 217(H) <150 mg/dL [facility] Comment: If a non-fasting specimen was collected, consider repeat triglyceride testing on a fasting specimen if clinically indicated. Alexa et al. J. of Clin. Lipidol. 2015;9:129-169. LDL (CALCULATED) 70 mg/dL (calc) [facility] Comment: Reference range: <100 Desirable range <100 mg/dL for primary prevention; ?? <70 mg/dL for patients with CHD or diabetic patients with > or = 2 CHD risk factors. LDL-C is now calculated using the Carlos Enrique calculation, which is a validated novel method providing better accuracy than the Friedewald equation in the estimation of LDL-C. Deep GREER et al. JAMAR. 2013;310(19): 0124-0314 (http://education.Twice/faq/RGY763) CHOL/HDL RATIO 3.5 <5.0 (calc) [facility] NON HDL CHOLESTEROL 99 <130 mg/dL (calc) [facility] Comment: For patients with diabetes plus 1 major ASCVD risk factor, treating to a non-HDL-C goal of <100 mg/dL (LDL-C of <70 mg/dL) is considered a therapeutic option. 10/21/2020 9:43 AM CDT 10/21/2020 9:46 AM CDT Narrative [facility] - 10/22/2020 4:12 AM CDT FASTING:YES FASTING: YES Keyonna HILTON LABORATORY Final Resul t [facility] [address] [address] * (ABNORMAL) CBC W/DIFF AUTOMATED (10/21/2020 9:43 AM CDT) WBC 11.0(H) 3.8 - 10.8 Thousand/u L [facility] RBC 4.72 3.80 - 5.10 Million/uL [facility] HGB 14.3 11.7 - 15.5 g/dL [facility] HCT 43.0 35.0 - 45.0 % [facility] MCV 91.1 80.0 - 100.0 fL [facility] MCH 30.3 27.0 - 33.0 pg [facility] MCHC 33.3 32.0 - 36.0 g/dL [facility] RDW 14.3 11.0 - 15.0 % [facility] PLT 342 140 - 400 Thousand/u L [facility] MPV 10.2 7.5 - 12.5 fL [facility] ABS. NEUTROPHILS 5,786 1,500 - 7,800 cells/uL [facility] ABS. LYMPHOCYTES 4,290(H) 850 - 3,900 cells/uL [facility] ABS. MONOCYTES 781 200 - 950 cells/uL [facility] ABS. EOSINOPHILS 88 15 - 500 cells/uL [facility] ABS. BASOPHILS 55 0 - 200 cells/uL [facility] SEG NEUTROPHILS 52.6 % [facility] LYMPHOCYTES 39.0 % [facility] MONOCYTES 7.1 % [facility] EOSINOPHILS 0.8 % [facility] BASOPHILS 0.5 % [facility] 10/21/2020 9:43 AM CDT 10/21/2020 9:46 AM CDT Narrative [facility] - 10/22/2020 4:12 AM CDT FASTING:YES FASTING: YES Keyonna HILTON LABORATORY Final Resul t [facility] [address] [place] [address] documented in this encounter Visit Diagnoses Diagnosis Obstructive sleep apnea- Primary Obstructive sleep apnea (adult) (pediatric) Essential hypertension Unspecified essential hypertension Class 3 severe obesity due to excess calories with serious comorbidity and body mass index (BMI) of 50.0 to 59.9 in adult ([facility]) Gastroesophageal reflux disease, unspecified whether esophagitis present Dyslipidemia Other and unspecified hyperlipidemia Anxiety Anxiety state, unspecified Recurrent major depressive disorder, in partial remission ([facility]) Primary insomnia Persistent disorder of initiating or maintaining sleep BMI 45.0-49.9, adult ([facility]) Body Mass Index 45.0-49.9, adult Eustachian tube dysfunction, right Adenoma of left adrenal gland Benign neoplasm of adrenal gland documented in this encounter Additional Health Concerns Assessment Noted Time PHQ-9 Depression Total Score: 22 07/29/ 020 3:46 PM FISHING BOAT CAPTAIN documented as of this encounter Care Teams Toll Line Repairer Relationship Specialty Start Date End Date Keyonna Armstrong APNP [address] [place] [id number] PCP - General NURSE PRACTITIONER 05/06/18 documented as of this encounter
--- OUTSIDE RECORDS SUMMARY | 2024-07-10 22:59 | XMS_ITS | Encounter Summary ---
Author Organization [facility] Address [address] [place] [address]. [place], [place] [id number] [place] [address] Care Team Providers Care Regional Psychiatric Director Name Role Phone Keyonna Armstrong Primary Care Provider [phone] Reason for Visit * Reason Comments Procedure (SCAN) Encounter Details Date Type Department Care Team ([facility] Contact Info) Description 08/31/2021 Scan HEALTH INFO SRVCS Scanned, Documents Procedure (SCAN) Social History Tobacco Use Types Packs/Day [...] CDT Gender Identity Female 07/17/2022 10:27 AM CHAR BELT OPERATOR Sexual Orientation Straight 07/17/2022 10 :27 AM CHAR BELT OPERATOR documented as of this encounter Plan of Treatment Upcoming Encounters Date Type Department Care Team ([facility] Contact Info) Description 07/25/2024 10:00 AM CHAR BELT OPERATOR Office Visit [facility] Family & Internal Medicine [address] [place] [address] Keyonna Armstrong APNP [address] [place] [address] 07/31/2024 10:15 AM CHAR BELT OPERATOR Office Visit [facility], [email or web address] [address] [place] [address] Pepe Mitchell MD Three [facility]. [facility] [address] [place], [place] [address] documented as of this encounter Procedures Procedure Name Priority Date/Time Associated Diagnosis Comments PROCEDURE GENERIC (SCAN ORDER) 08/31/2021 documented in this encounter Results * PROCEDURE GENERIC (08/31/2021) 08/31/2021 Narrative 08/31/2021 Ordered by an unspecified provider. us Documents Scanned SCANNING Final Result documented in this encounter Visit Diagnoses Not on filedocumented in this encounter Additional Health Concerns Assessment Noted Time PHQ-9 Depression Total Score: 22 020 3:46 PM CHAR BELT OPERATOR documented as of this encounter Care Teams Regional Psychiatric Director Relationship Specialty Start Date End Date Keyonna Armstrong APNP [address] [place] [address] PCP - General NURSE PRACTITIONER 05/06/18 documented as of this encounter
--- OUTSIDE RECORDS SUMMARY | 2024-07-10 22:59 | XMS_ITS | Encounter Summary ---
Author Organization [facility] Address [address] [place] [address]. [place] [id number] [place] [address] Care Team Providers Care Plate Filler Name Role Phone Keyonna Armstrong Primary Care Provider [phone] Reason for Visit * Reason Comments Medication Check Encounter Details Date Type Department Care Team (Late st Contact Info) Description 03/04/2020 11:[address] [facility] Family & Internal Medicine [facility] [address] [place] [address] Keyonna Armstrong APNP [address], [place] [id number] Medication Check Social History Tobacco Use Types Packs/Day Years [...] CDT Gender Identity Female 07/17/2022 10:27 AM CHIEF LOAD DISPATCHER Sexual Orientation Straight 07/17/2022 10 :27 AM CHIEF LOAD DISPATCHER documented as of this encounter Progress Notes * Keyonna Angeles YOBANI Armstrong - 03/04/2020 11:00 AM CDT Images from the original note were not included. [facility] OFFICE VISIT I introduced and identified myself, received verbal consent from the patient to proceed with this video visit and made the patient aware that the same confidentiality and information services manager practices apply. The patient joined the video visit from Home. I completed the virtual visit from Office. The following clinical staff helped with this visit MA: Bridget. Total Time Spent in Minutes: 25 Reason for Visit: Medication Check History of Present Illness: 49 yo female presents today via video visit for follow up of her chronic health conditions. She hada colonoscopy in December 2019. HTN - Tolerates meds well. Denies any chronic health health problems. BP was checked in December prior to her colonoscopy and found to be WNL. She denies any cough or facial edema. She denies any chest pain, shortness of breath, headache, dizziness, heart palpitations or lower extremity edema. Anxiety/depression - feels like overall she is doing well. She is seeing a PMHNP for management of this---She feels her meds are managed well. Denies any HI/SI. Sees Jean Paul Seals in [facility]. GERD - Feels like symptoms controlled. Pantoprazole reduced to 20 mg once daily. Still feels like symptoms are controlled. Did not have a recent EGD with colonoscopy as pt was asymptomatic. ZENON -Still using CPAP and is able to tolerate well. Does have some insomnia, but uses zolpidem PRN for this. Insomnia - Takes zolpidem (we have tried other sleep aids in past--which she did not tolerate). Tolerates well. Hyperlipidemia - Not currently on meds---will check to see if lipids are UTD. Hyperglycemia - Last HGB A1C was done in 2017 and was 5.1. She remains on metformin for hyperglycemia. Tolerates well. Obesity - She has lost 13 lbs since July. Has not really been dieting, but trying to reduce her portion size. Plans to keep working on this. Last pap was done last year. She states she has an appt with her [facility] scheduled for in Mar. She hasan appt with Dr. Colindres. Unsure of last mammo. Had done at [place]. Mammo was ordered in 04/2019. Pt is unsure if she had this done yet or not. Labs were done in 08/2019. WBC sl elevated. LFT's elevated. Plan to recheck. She would like a refill of her ibuprofen 800 mg. She will takes this for intermittent joint pain, menstrual cramps and headache. Will caution pt on this. ROS: Review of Systems Constitutional: Negative for chills, fever and malaise/fatigue. HENT: Negative for congestion, sinus pain and sore throat. Respiratory: Negative for cough and shortness of breath. Cardiovascular: Negative for chest pain and palpitations. Gastrointestinal: Negative for abdominal pain, constipation, diarrhea, heartburn, nausea and vomiting. Musculoskeletal: Negative for myalgias. Skin: Negative for itching and rash. Neurological: Negative for dizziness and headaches. Psychiatric/Behavioral: Negative for depression and suicidal ideas. The patient has insomnia. The patient is not nervous/anxious. Medications: Current Outpatient Medications: ??? hydroCHLOROthiazide 25 MG tablet, Take one tablet by mouth once daily., Disp: 90 tablet, Rfl: 1 ??? ibuprofen 800 MG tablet, Take one tablet once every 12 hours for pain., Disp: 30 tablet, Rfl: 0 ??? lisinopril 40 MG tablet, Take 1 tablet (40 mg total) by mouth daily., Disp: 90 tablet, Rfl: 1 ??? metoprolol succinate ER 100 MG 24 hr tablet, Take 1 tablet (100 mg total) by mouth daily., Disp: 90 tablet, Rfl: 1 ??? pantoprazole EC 20 MG tablet, Take 1 tablet (20 mg total) by mouth daily., Disp: 90 tablet, Rfl: 1 ??? albuterol sulfate HFA (VENTOLIN HFA) 108 (90 Base) MCG/ACT inhaler, TAKE 2 PUFFS BY MOUTH EVERY4 HOURS NEEDED FOR WHEEZING, Disp: , Rfl: ??? buPROPion SR 150 MG 12 hr tablet, TAKE ONE TABLET TWICE DAILY., Disp: 180 tablet, Rfl: 0 ??? Cholecalciferol (D 5000) 125 MCG (5000 UT) Cap, Take 5,000 Units by mouth daily., Disp: , Rfl: ??? ENPRESSE-28 tablet, TAKE 1 TABLET BY MOUTH EVERY DAY, Disp: 84 tablet, Rfl: 0 ??? lorazepam 1 MG tablet, Take 1 [...] NEEDED, Disp: 180 tablet, Rfl: 1 ??? Multiple Vitamin (MULTI-VITAMIN) tablet, Take 1 tablet by mouth daily., Disp: , Rfl: ??? ondansetron 4 MG tablet, TAKE 1 TABLET BY MOUTH EVERY 6 HOURS NEEDED FOR NAUSEA/VOMITING, Disp: , Rfl: 1 ??? VENLAFAXINE XR 75 MG [...] 09/20/2017 ??? Cholecystitis 06/11/2018 ??? Diabetes mellitus ([facility]) ??? Esophageal reflux 04/22/2013 ??? Hypertension 06/19/2012 ??? Insomnia 04/02/2018 ??? Menorrhagia 04/02/2018 ??? Morbid obesity (CMS/HCC) 09/23/2013 ??? Obstructive sleep apnea 08/02/2012 ??? Sinus tachycardia 09/20/2017 Surgical History: Past Surgical History: Procedure Laterality Date ??? CHOLECYSTECTOMY ??? COLONOSCOPY N/A 01/12/2020 COLONOSCOPY SCREENING performed by Burt Payne MD at [facility] ??? GASTRIC BYPASS N/A 2004 Social History: [...] file Gets together: Not on file Attends orthodoxy service: Not on file Active member of [...] no distress. HENT: Head: Normocephalic and atraumatic. Pulmonary/Chest: Effort normal. No respiratory distress. Neurological: She is alert and oriented to person, place, and time. Psychiatric: Mood and affect normal. There were no vitals filed for this visit. Labs: Labs Reviewed Diagnoses/Impression: 1. Essential hypertension COMPREHENSIVE METABOLIC PANEL hydroCHLOROthiazide 25 MG tablet lisinopril 40 MG tablet metoprolol succinate ER 100 MG 24 hr tablet 2. Obstructive sleep apnea Chronic 3. Gastroesophageal reflux disease, esophagitis presence not specified pantoprazole EC 20 MG tablet Chronic 4. Dyslipidemia Chronic 5. Anxiety Chronic 6. Recurrent major depressive disorder, in partial remission (CMS/HCC) 7. Need for hepatitis C screening test HEPATITIS C ANTIBODY 8. Abnormal platelets (CMS/HCC) CBC W/DIFF AUTOMATED 9. Right ovarian cyst ibuprofen 800 MG tablet 10. Class 3 severe obesity due to excess calories with serious comorbidity and body mass index (BMI) of 50.0 to 59.9 in adult (CMS/HCC) Recommendations and Plan: 1. Essential hypertension - COMPREHENSIVE METABOLIC PANEL; Future - COMPREHENSIVE METABOLIC PANEL - hydroCHLOROthiazide 25 MG tablet; Take one tablet by mouth once daily. Dispense: 90 tablet; Refill: 1 - lisinopril 40 MG tablet; Take 1 tablet (40 mg total) by mouth daily. Dispense: 90 tablet; Refill:1 - metoprolol succinate ER 100 MG 24 hr tablet; Take 1 tablet (100 mg total) by mouth daily. Dispense: 90 tablet; Refill: 1 Blood pressure controlled according to December 2019 note. Patient is to continue her current blood pressure medications. 2. Obstructive sleep apnea Stable. Continue use of CPAP. 3. Gastroesophageal reflux disease, esophagitis presence not specified - pantoprazole EC 20 MG tablet; Take 1 tablet (20 mg total) by mouth daily. Dispense: 90 tablet; Refill: 1 Stable. Continue meds. 4. Dyslipidemia Stable. Labs recently checked in August 2019. Heart healthy/low cholesterol diet discussed and encouraged today. 5. Anxiety Stable. Continue meds. Continue follow-up with psychiatric mental health nurse practitioner. 6. Recurrent major depressive disorder, in partial remission (CMS/HCC) Stable. Continue meds. 7. Need for hepatitis C screening test - HEPATITIS C ANTIBODY; Future Shared decision making done today prior to ordering patient's hepatitis C screen. 8. Abnormal platelets (CMS/HCC) - CBC W/DIFF AUTOMATED; Future - CBC W/DIFF AUTOMATED Platelets have been historically elevated as well as WBC. Plan to recheck CBC. More plan after results. 9. Right ovarian cyst - ibuprofen 800 MG tablet; Take one tablet once every 12 hours for pain. Dispense: 30 tablet; Refill: 0 Ibuprofen refilled today. Patient is to continue follow-up with [facility]. She was advised of the risk, benefits and side effects of this medication. 10. Class III obesity Therapeutic lifestyle changes and dietary changes conducive to weight loss were discussed with patient today. We will continue to monitor. Orders Placed This Encounter ??? HEPATITIS C ANTIBODY (NOT for WWD) ??? CBC W/DIFF AUTOMATED ??? COMPREHENSIVE METABOLIC PANEL ??? hydroCHLOROthiazide 25 MG tablet ??? ibuprofen 800 MG tablet ??? lisinopril 40 MG tablet ??? metoprolol succinate ER 100 MG 24 hr tablet ??? pantoprazole EC 20 MG tablet Cannot display discharge medications since this is not an admission. PCP: YOBANI Cruz 03/04/2020 documented in this encounter Plan of Treatment Upcoming Encounters Date Type Department Care Team (Late st Contact Info) Description 07/25/2024 10:00 AM CHIEF LOAD DISPATCHER Office Visit [facility] Family & Internal Medicine - [place] [address] [place] [address] Keyonna Armstrong APNP [address] [place] [address] 07/31/2024 10:15 AM CHIEF LOAD DISPATCHER Office Visit [facility], [facility] [address] [place], [place] [phone] Pepe Mitchell MD Three [facility]. [facility] [address] [place], [place] [id number] documented as of this encounter Visit Diagnoses Diagnosis Essential hypertension- Primary Unspecified essential hypertension Obstructive sleep apnea Obstructive sleep apnea (adult) (pediatric) Gastroesophageal reflux disease, esophagitis presence not specified Dyslipidemia Other and unspecified hyperlipidemia Anxiety Anxiety state, unspecified Recurrent major depressive disorder, in partial remission ([facility]) Need for hepatitis C screening test Special screening examination for other specified viral diseases Abnormal platelets ([facility]) Qualitative platelet defects Right ovarian cyst Other and unspecified ovarian cyst Class 3 severe obesity due to excess calories with serious comorbidity and body mass index (BMI) of 50.0 to 59.9 in adult ([facility]) documented in this encounter Additional Health Concerns Assessment Noted Time PHQ-9 Depression Total Score: 22 020 3:46 PM CHIEF LOAD DISPATCHER documented as of this encounter Care Teams Plate Filler Relationship Specialty Start Date End Date Keyonna Armstrong APNP [address] [place] [address] PCP - General NURSE PRACTITIONER 05/06/18 documented as of this encounter
--- OUTSIDE RECORDS SUMMARY | 2024-07-10 22:59 | XMS_ITS | Encounter Summary ---
Author Organization [facility] Address [facility]. [place], [place] [address] [place] [address] Care Team Providers Care Aircraft Charter Dispatcher Name Role Phone Aracely Armstrong Primary Care Provider [phone] Reason for Referral * Physical Medicine (Routine) - Closed Specialty Diagnoses / Procedures Referred By Lee t Referred To Contact PHYSICAL THERAPY / [facility] Physical Therapy Diagnoses Chronic right shoulder pain Aracely Armstrong APNP [address] [place] [address] Phone: tel: fax: [facility] Physical Therapy [address] [facility] [place] [address] Phone: tel: fax: Referral ID Status Reason Start Date Expiration Date V isits Requested Visits Authorized [id number] Closed Physical Therapy 05/13/2021 06/12/2022 1 1 Reason for Visit * Reason Comments Medication med f/u Anxiety Encounter Details Date Type Department Care Team (Late st Contact Info) Description 05/13/2021 12:40 PM CDT Office Visit [facility] Medical Group Family & Internal Medicine - [place] [address] [place] [address] Aracely Armstrong APNP [address], [place] [id number] Medication (med f/u); Anxiety Social History Tobacco Use Types Packs/Day Years [...] CDT Gender Identity Female 07/17/2022 10:27 AM MANUFACTURING TECHNICIAN Sexual Orientation Straight 07/17/2022 10 :27 AM MANUFACTURING TECHNICIAN COVID-19 Exposure Response Date Recorded In the last month, have you been in contact with someone who was confirmed or suspected to have Coronavirus / COVID-19? No / Unsure 05/13/2021 12:47 PM CDT documented as of this encounter Last Filed Vital Signs Vital Sign Reading Time Taken Comments Blood Pressure 132/82 05/13/2021 12:55 PM CDT Pulse 100 05/13/2021 12:55 PM CDT Temperature 36.2 ??C (97.1 ??F) 05/13/2021 12:55 PM C DT Respiratory Rate 20 05/13/2021 12:55 PM CDT Oxygen Saturation 97% 05/13/2021 12:55 PM CDT Inhaled Oxygen Concentration - - Weight 126.1 kg (278 lb) 05/13/2021 12:55 PM CDT Height 165.1 cm (5' 5) 05/13/2021 12:55 PM CDT Body Mass Index 46.26 05/13/2021 12:55 PM CDT documented in this encounter Progress Notes * YOBANI Cruz - 05/13/2021 12:40 PM CDTAddended by: ARACELY ARMSTRONG on: 05/13/2021 01:54 PM Modules accepted: Orders * YOBANI Cruz - 05/13/2021 12:40 PM CDT Images from the original note were not included. [facility] FAMILY AND INTERNAL MEDICINE OFFICE VISIT Reason for Visit: Medication (med f/u) and Anxiety History of Present Illness: 50-year-old female here today to follow-up on her chronic health conditions. ?? Obstructive [...] be more compliant with the nasal pillows. GERD -symptoms controlled. Denies any excess belching or vomiting. Denies any bloody or black stools. ?? Hypertension -blood pressure controlled. Denies any bothersome side effects. Denies any chest pain,shortness of breath, headache, dizziness, heart palpitations or lower extremity edema. ?? Obesity -patient aware of her weight [...] an appt with Sury Rivas in 05/2021. Routine fasting labs were performed in 10/2020. WBC was found to be sl elevated--will recheck this. She has some right shoulder pain. This is not necessarily new but symptoms have seemingly worsened in the last 2 months. She has gone to [facility] and diagnosed with bursitis. Then he went to see her 's chiropractor who thinks it is coming from her neck. She returned back to [facility] and got Xrays of her neck and shoulder and was told she has arthritis in her neck and right shoulder. She does have some intermittent RUE tingling--denies any weakness. She was doing some homestretches that were provided to her from her chiropractor. Today--symptoms are a little better, butstill there. Pain is located over her anterior shoulder and pain is made worse by certain movements. ROS: Review of Systems Constitutional: Negative for chills and fever. HENT: Negative for congestion. Eyes: Negative for blurred vision and double vision. Respiratory: Negative for cough and shortness of breath. Cardiovascular: Negative for chest pain and palpitations. Gastrointestinal: Negative for abdominal pain, diarrhea, nausea and vomiting. Genitourinary: Negative for dysuria and urgency. Musculoskeletal: Positive for joint pain. Negative for myalgias. Neurological: Negative for dizziness and headaches. Psychiatric/Behavioral: [...] DAY, Disp: 180 tablet, Rfl: 3 ??? Cholecalciferol (D 5000) 125 MCG (5000 UT) Cap, Take 5,000 Units by mouth daily., Disp: , Rfl: ??? FLUTICASONE PROPIONATE 50 MCG/ACT nasal spray, SPRAY 1 SPRAY INTO EACH NOSTRIL EVERY DAY, Disp:16 mL, Rfl: 5 ??? HYDROCHLOROTHIAZIDE 25 MG tablet, TAKE 1 TABLET BY MOUTH EVERY DAY, Disp: 90 tablet, Rfl: 1 ??? IBUPROFEN 800 MG tablet, TAKE 1 TABLET BY MOUTH EVERY 12 HOURS NEEDED FOR PAIN, Disp: 90 tablet, Rfl: 2 ??? LARISSIA 0.1-20 MG-MCG tablet, , Disp: [...] SCREENING performed by Burt Payne MD at [facility] ??? GASTRIC BYPASS N/A 2004 Social History: Social History Socioeconomic History ??? Marital status: Spouse name: Not on file ??? Number of children: Not on file ??? Years of education: Not on file ??? Highest education level: Not on file Occupational History ??? Not on file Tobacco Use ??? Smoking status: Never Smoker ??? Smokeless tobacco: Never Used Substance and Sexual Activity ??? Alcohol use: No ??? Drug use: No ??? Sexual activity: Yes Partners: Male Other Topics Concern ??? Not on file Social History Narrative ??? Not on file Social Determinants of Health Financial Resource Strain: ??? Difficulty of Paying Living Expenses: Food Insecurity: ??? Worried About Running Out of Food in the Last Year: ??? Ran Out of Food in the Last Year: Transportation Needs: ??? Lack of Transportation (Medical): ??? Lack of Transportation (Non-Medical): Physical Activity: ??? Days of Exercise per Week: ??? Minutes of Exercise per Session: Stress: ??? Feeling of Stress : Social Connections: ??? Frequency of Communication with Friends and Family: ??? Frequency of Social Gatherings with Friends and Family: ??? Attends Sabianist Services: ??? Active Member of Clubs or Organizations: ??? Attends Club or Organization Meetings: ??? Marital Status: Intimate Partner Violence: ??? Fear of Current or Ex-Partner: ??? Emotionally Abused: ??? Physically Abused: ??? Sexually Abused: Family History: Family History Problem Relation Name Age of Onset ??? Liver Disease Mother ??? Hypertension Mother ??? Diabetes Father ??? Thyroid Sister ??? Liver Disease Brother ??? Stroke Maternal Grandmother PE: Physical Exam Constitutional: She is oriented to person, place, and time and well-developed, well-nourished, and in no distress. HENT: Head: Normocephalic and atraumatic. Right Ear: External ear normal. Mouth/Throat: No oropharyngeal exudate. Eyes: Pupils are equal, round, and reactive to light. Conjunctivae and EOM are normal. No scleral icterus. Neck: No tracheal deviation present. Cardiovascular: Normal rate, regular rhythm and normal heart sounds. No murmur heard. Pulmonary/Chest: Effort normal and breath sounds normal. No stridor. No respiratory distress. She has no wheezes. She has no rales. Abdominal: Soft. Bowel sounds are normal. She exhibits no distension and no mass. There is no abdominal tenderness. There is no rebound and no guarding. Musculoskeletal: General: No tenderness or deformity. Normal range of motion. Cervical back: Normal range of motion and neck supple. Comments: Range of motion noted right shoulder all directions except with reaching behind No bruising, redness or swelling noted of the right shoulder. Negative apprehension and empty can signs. Neurovascular check intact No weakness of right upper extremity noted Neurological: She is alert and oriented to person, place, and time. Gait normal. Skin: Skin is warm and dry. No rash noted. No erythema. No pallor. Psychiatric: Mood and affect normal. Nursing note and vitals reviewed. Filed Vitals: 05/13/21 1255 BP: 132/82 Pulse: 100 Resp: 20 Temp: 97.1 ??F (36.2 ??C) SpO2: 97% Weight: 126.1 kg (278 lb) Height: 5' 5 (1.651 m) Labs: Labs Reviewed Diagnoses/Impression: 1. Obstructive sleep apnea Chronic 2. Primary insomnia Chronic 3. Primary hypertension 4. Gastroesophageal reflux disease, unspecified whether esophagitis present Chronic 5. Adenoma of left adrenal gland Chronic 6. Recurrent major depressive disorder, in partial remission (CMS/HCC) Chronic 7. Anxiety Chronic 8. Chronic right shoulder pain Ambulatory referral to Physical Therapy Recommendations and Plan: 1. Obstructive sleep apnea Stable. Patient instructed to contact her supply company to discuss changing from full facemask to nasal pillows. 2. Primary insomnia Stable. Continue as needed use of zolpidem. [place]-POTTERY MACHINE OPERATOR checked today and found to be appropriate. 3. Primary hypertension Stable. Continue meds. 4. Gastroesophageal reflux disease, unspecified whether esophagitis present Stable. Continue medications. 5. Adenoma of left adrenal gland Patient will keep appointment with senior firmware engineer as scheduled 6. Recurrent major depressive disorder, in partial remission (CMS/HCC) Stable. Continue meds. Continue follow-up with PMH TITLE I ASSISTANT 7. Anxiety Stable. Continue medications. Continue follow-up with PMH TITLE I ASSISTANT 8. Chronic right shoulder pain - Ambulatory referral to Physical Therapy Treatment options discussed with patient today. Patient is agreeable to a physical therapy referral. Patient will let me know if there is no improvement after physical therapy further imaging, MRI, will be considered. 9. Leukocytosis Plan to recheck CBC. Orders Placed This Encounter ??? Ambulatory referral to Physical Therapy Cannot display discharge medications since this is not an admission. PCP: YOBANI Cruz 05/13/2021 documented in this encounter Plan of Treatment Upcoming Encounters Date Type Department Care Team (Late st Contact Info) Description 07/25/2024 10:00 AM MANUFACTURING TECHNICIAN Office Visit [facility] Medical Group Family & Internal Medicine - [address] [address] Aracely Armstrong APNP [address] [place] [address] 07/31/2024 10:15 AM MANUFACTURING TECHNICIAN Office Visit [facility] THREE [facility], [facility] [address] [place] [address] Pepe Mitchell MD Three [facility]. [facility] [address] [place], [place] [address] Scheduled Referrals Name Type Priority Associated Diagnoses Orde r Schedule Ambulatory referral to Physical Therapy Referral Routine Chronic right shoulder pain Ordered: 05/13/2021 documented as of this encounter Procedures Procedure Name Priority Date/Time Associated Diagnosis Comments CBC W/DIFF AUTOMATED Routine 05/13/2021 1:54 PM CDT Leukocytosis, unspecified type documented in this encounter Results * (ABNORMAL) CBC W/DIFF AUTOMATED (05/13/2021 1:54 PM CDT) WBC 10.4 3.8 - 10.8 Thousand/u L [facility] RBC 4.47 3.80 - 5.10 Million/uL [facility] HGB 14.5 11.7 - 15.5 g/dL [facility] HCT 43.1 35.0 - 45.0 % [facility] MCV 96.4 80.0 - 100.0 fL [facility] MCH 32.4 27.0 - 33.0 pg [facility] MCHC 33.6 32.0 - 36.0 g/dL [facility] RDW 14.0 11.0 - 15.0 % [facility] PLT 392 140 - 400 Thousand/u L [facility] MPV 9.9 7.5 - 12.5 fL [facility] ABS. NEUTROPHILS 4,264 1,500 - 7,800 cells/uL [facility] ABS. LYMPHOCYTES 5,023(H) 850 - 3,900 cells/uL [facility] ABS. MONOCYTES 894 200 - 950 cells/uL [facility] ABS. EOSINOPHILS 156 15 - 500 cells/uL [facility] ABS. BASOPHILS 62 0 - 200 cells/uL [facility] SEG NEUTROPHILS 41 % [facility] LYMPHOCYTES 48.3 % [facility] MONOCYTES 8.6 % [facility] EOSINOPHILS 1.5 % [facility] BASOPHILS 0.6 % [facility] 05/13/2021 1:54 PM CDT 05/14/2021 7:10 AM CDT Aracely [facility] Final Resul t [facility] [address] [place] [address] documented in this encounter Visit Diagnoses Diagnosis Obstructive sleep apnea- Primary Obstructive sleep apnea (adult) (pediatric) Primary insomnia Persistent disorder of initiating or maintaining sleep Primary hypertension Unspecified essential hypertension Gastroesophageal reflux disease, unspecified whether esophagitis present Adenoma of left adrenal gland Benign neoplasm of adrenal gland Recurrent major depressive disorder, in partial remission (CMS/HCC) Anxiety Anxiety state, unspecified Chronic right shoulder pain Pain in joint, shoulder region Leukocytosis, unspecified type documented in this encounter Additional Health Concerns Assessment Noted Time PHQ-9 Depression Total Score: 22 020 3:46 PM MANUFACTURING TECHNICIAN documented as of this encounter Care Teams Aircraft Charter Dispatcher Relationship Specialty Start Date End Date Aracely Armstrong APNP [address] [place] [address] PCP - General NURSE PRACTITIONER 05/06/18 documented as of this encounter
--- OUTSIDE RECORDS SUMMARY | 2024-07-10 22:59 | XMS_ITS | Encounter Summary ---
Author Organization [facility] Address [address] [place] [address]. [place], [place] [address] [place] [address] Care Team Providers Care Photography Teacher Name Role Phone Keyonna Armstrong Primary Care Provider [phone] Reason for Visit * Reason Onset Date Comments Reschedule 11/14/2019 Encounter Details Date Type Department Care Team (Late st Contact Info) Description 11/14/2019 Telephone [facility] Medical Group Multispecialty Care - [facility] [address] [facility] [place] [address] Burt Payne MD 3 [facility] [address] [place] [address] Reschedule Social History Tobacco Use Types Packs/Day Years [...] CDT Gender Identity Female 07/17/2022 10:27 AM BLOW MOLD MACHINE OPERATOR Sexual Orientation Straight 07/17/2022 10 :27 AM BLOW MOLD MACHINE OPERATOR documented as of this encounter Progress Notes * Vernell Masters - 11/17/2019 8:25 AM CDT LVM for pt to give the office a call procedure for 11/24/2019 will need to be rescheduled to after 12/08/19. * Vernell Grant Masters - 11/14/2019 3:47 PM CDT LVM for pt to give the office a call procedure that's scheduled for 11/24/19 will need to be rescheduled to after 12/08/19. documented in this encounter Plan of Treatment Upcoming Encounters Date Type Department Care Team (Late st Contact Info) Description 07/25/2024 10:00 AM BLOW MOLD MACHINE OPERATOR Office Visit [facility] Medical Group Family & Internal Medicine [address] [address] Keyonna Armstrong APNP [address] [place] [address] 07/31/2024 10:15 AM BLOW MOLD MACHINE OPERATOR Office Visit [facility] THREE [facility], [facility] [address] [place] [address] Pepe Mitchell MD Three [facility]. [facility] [address] [place] [address] documented as of this encounter Visit Diagnoses Not on filedocumented in this encounter Additional Health Concerns Assessment Noted Time PHQ-9 Depression Total Score: 22 020 3:46 PM BLOW MOLD MACHINE OPERATOR documented as of this encounter Care Teams Photography Teacher Relationship Specialty Start Date End Date Keyonna Armstrong APNP [address] [place] [address] PCP - General NURSE PRACTITIONER 05/06/18 documented as of this encounter
--- OUTSIDE RECORDS SUMMARY | 2024-07-10 22:59 | XMS_ITS | Encounter Summary ---
Author Organization [facility] Address [address] [place] [address]. [place], [place] [address] [place] [address] Care Team Providers Care Nodulizer Name Role Phone Keyonna Armstrong Primary Care Provider [phone] Encounter Details Date Type Department Care Team (Latest Contact Info) Description 09/11/2019 Scan HEALTH INFO SRVCS Scanned, Documents Social [...] CDT Gender Identity Female 07/17/2022 10:27 AM SITE LEAD Sexual Orientation Straight 07/17/2022 10 :27 AM SITE LEAD documented as of this encounter Plan of Treatment Upcoming Encounters Date Type Department Care Team (Late st Contact Info) Description 07/25/2024 10:00 AM SITE LEAD Office Visit [facility] Medical Group Family & Internal Medicine - [place] [address] [place] [address] Keyonna Armstrong APNP [address] [place] [address] 07/31/2024 10:15 AM SITE LEAD Office Visit [facility] THREE [facility] [place] [address] [place] [address] Pepe Mitchell MD Three [facility]. [address] [place] [address] documented as of this encounter Visit Diagnoses Not on filedocumented in this encounter Additional Health Concerns Assessment Noted Time PHQ-9 Depression Total Score: 22 020 3:46 PM SITE LEAD documented as of this encounter Care Teams Nodulizer Relationship Specialty Start Date End Date Keyonna Armstrong APNP [address] [place] [address] PCP - General NURSE PRACTITIONER 05/06/18 documented as of this encounter
--- OUTSIDE RECORDS SUMMARY | 2024-07-10 22:59 | XMS_ITS | Encounter Summary ---
Author Organization [facility] Address [address] [place] [address]. [place], [place] [address] [place] [address] Care Team Providers Care Dairy Clerk Name Role Phone Keyonna Armstrong Primary Care Provider [phone] Reason for Visit * Reason Onset Date Comments Reschedule 10/03/2019 Colonocopy on Encounter Details Date Type Department Care Team (Late st Contact Info) Description 10/03/2019 Telephone [facility] Medical Group Multispecialty Care - [facility] [address] [facility] [place] [address] Burt Payne MD 3 [facility] [address] [place] [address] Reschedule (Colonocopy on Sunday) Social History Tobacco Use Types Packs/Day Years [...] CDT Gender Identity Female 07/17/2022 10:27 AM BREASTFEEDING EDUCATOR Sexual Orientation Straight 07/17/2022 10 :27 AM BREASTFEEDING EDUCATOR documented as of this encounter Progress Notes * Vernell Masters - 10/06/2019 10:10 AM CDT Spoke with pt procedure reschedule. * Soo Crowe - 10/03/2019 3:08 PM CDT Patient is returning Vernell's call about rescheduling her procedure that is on Sunday. Please return patient's call. * Vernell Masters - 10/03/2019 1:05 PM CDT Returned patient's call LVM. * Laney Valero - 10/03/2019 12:20 PM CDT Pt called saying that she has a colonoscopy on Sunday and call back to reschedule because she stated she is sick. documented in this encounter Plan of Treatment Upcoming Encounters Date Type Department Care Team (Late st Contact Info) Description 07/25/2024 10:00 AM BREASTFEEDING EDUCATOR Office Visit [facility] Medical Group Family & Internal Medicine - [place] [address] [place] [address] Keyonna Armstrong APNP [address] [place] [address] 07/31/2024 10:15 AM BREASTFEEDING EDUCATOR Office Visit [facility] THREE [facility], [place] [address] [place], [place] [phone] Pepe Mitchell MD Three [facility]. [address] [place] [address] documented as of this encounter Visit Diagnoses Not on filedocumented in this encounter Additional Health Concerns Assessment Noted Time PHQ-9 Depression Total Score: 22 020 3:46 PM BREASTFEEDING EDUCATOR documented as of this encounter Care Teams Dairy Clerk Relationship Specialty Start Date End Date Keyonna Armstrong APNP [address] [place] [address] PCP - General NURSE PRACTITIONER 05/06/18 documented as of this encounter
--- OUTSIDE RECORDS SUMMARY | 2024-07-10 22:59 | XMS_ITS | Encounter Summary ---
Author Organization [facility] Address [address] [place] [address]. [place], [place] [address] [place] [address] Care Team Providers Care Woodworking Machine Feeder Name Role Phone Keyonna Armstrong Primary Care Provider [phone] Reason for Visit * Reason Comments Colonoscopy Report (SCAN) Encounter Details Date Type Department Care Team (Late st Contact Info) Description 01/12/2020 Scan [facility] INFO SRVCS Scanned, Documents Colonoscopy Report (SCAN) Social History Tobacco Use Types Packs/Day [...] CDT Gender Identity Female 07/17/2022 10:27 AM WATER SKI ASSEMBLER Sexual Orientation Straight 07/17/2022 10 :27 AM WATER SKI ASSEMBLER COVID-19 Exposure Response Date Recorded In the last month, have you been in contact with someone who was confirmed or suspected to have Coronavirus / COVID-19? No / Unsure 05/13/2021 12:47 PM CDT documented as of this encounter Plan of Treatment Upcoming Encounters Date Type Department Care Team (Late st Contact Info) Description 07/25/2024 10:00 AM WATER SKI ASSEMBLER Office Visit [facility] Medical Group Family & Internal Medicine - [place] [address] [place] [address] Keyonna Armstrong APNP [address] [place] [address] 07/31/2024 10:15 AM WATER SKI ASSEMBLER Office Visit [facility] THREE [facility], [facility] [address] [place], [place] [address] Pepe Mitchell MD Three [facility]. [facility] [address] [place], [place] [phone] documented as of this encounter Procedures Procedure Name Priority Date/Time Associated Diagnosis Comments COLONOSCOPY GENERIC (SCAN ORDER) Routine 01/12/2020 documented in this encounter Results * COLONOSCOPY (01/12/2020) us Documents Scanned SCANNING Final Result [facility] documented in this encounter Visit Diagnoses Not on filedocumented in this encounter Additional Health Concerns Assessment Noted Time PHQ-9 Depression Total Score: 22 07/29/ 020 3:46 PM WATER SKI ASSEMBLER documented as of this encounter Care Teams Woodworking Machine Feeder Relationship Specialty Start Date End Date Keyonna Armstrong APNP [address] [place] [address] PCP - General NURSE PRACTITIONER 05/06/18 documented as of this encounter
--- OUTSIDE RECORDS SUMMARY | 2024-07-10 23:00 | XMS_ITS | Encounter Summary ---
Author Organization [facility] Address [address] [place] [address]. [place] [id number] [place] [id number] Care Team Providers Care Clerical Adjuster Name Role Phone Keyonna Armstrong Primary Care Provider [phone] Reason for Visit * Reason Comments Lab (SCAN) Encounter Details Date Type Department Care Team (Latest Contact Info) Description 12/24/2018 Scan HEALTH INFO [facility] Scanned, Documents Lab (SCAN) Social History Tobacco Use Types Packs/Day Years Used Date Smoking Tobacco: Never Smokeless Tobacco: Never Alcohol Use Standard Drinks/Week Comments No 0 (1 standard drink = 0.6 oz pur e alcohol) AUDIT-C Answer Date Recorded Frequency of Alcohol Consumption Never 06/11/2018 Average Number of Drinks Not on file 018 Frequency of Binge Drinking Not on file 05/24 Comments Unknown Sex and Gender Information Value Date Recorded Sex Assigned at Not on file Legal Sex Female 5:47 PM CDT Gender Identity Female 07/17/2022 10:27 AM WHOLESALE ACCOUNT EXECUTIVE Sexual Orientation Straight 07/17/2022 10 :27 AM WHOLESALE ACCOUNT EXECUTIVE documented as of this encounter Plan of Treatment Upcoming Encounters Date Type Department Care Team (Late st Contact Info) Description 07/25/2024 10:00 AM WHOLESALE ACCOUNT EXECUTIVE Office Visit [facility] [place] [address] [place] [phone] Keyonna Armstrong APNP [address] [place] [address] 07/31/2024 10:15 AM WHOLESALE ACCOUNT EXECUTIVE Office Visit Aaliyah Alexander-O'Fallo n [facility], [place] [address] [place] [address] Pepe Mitchell MD [facility]. [place] [address] [place] [address] documented as of this encounter Procedures Procedure Name Priority Date/Time Associated Diagnosis Comments OUTSIDE LAB (SCAN ORDER) Routine 12/24/2018 OUTSIDE LAB (SCAN ORDER) Routine 12/24/2018 documented in this encounter Results * OUTSIDE LAB (12/24/2018) 12/24/2018 us Documents Scanned SCANNING Edited Result - Final * OUTSIDE LAB (12/24/2018) 12/24/2018 us Documents Scanned SCANNING Edited Result - Final documented in this encounter Visit Diagnoses Not on filedocumented in this encounter Additional Health Concerns Assessment Noted Time PHQ-9 Depression Total Score: 23 019 9:51 AM CDT documented as of this encounter Care Teams Clerical Adjuster Relationship Specialty Start Date End Date Keyonna Armstrong APNP [address] [place] [id number] PCP - General NURSE PRACTITIONER 05/06/18 documented as of this encounter
--- OUTSIDE RECORDS SUMMARY | 2024-07-10 23:00 | XMS_ITS | Encounter Summary ---
Author Organization [facility] Address [facility] [facility]. [place], [place] [address] [place] [address] Care Team Providers Care Information Services Consultant Name Role Phone Aracely Armstrong Primary Care Provider [phone] Reason for Referral * Consultation (Urgent) - Closed Specialty Diagnoses / Procedures Referred By Contac t Referred To Contact CARDIOLOGY / Cardiology Diagnoses Tachycardia Aracely Armstrong APNP [address] [place] [address] Phone: tel: fax: Bairon Espinosa MD [address] [place] [address] [place] [phone] Phone: tel: fax: Referral ID Status Reason Start Date Expiration Date V isits Requested Visits Authorized [id number] Closed Specialty Services 07/31/2019 08/29/2020 1 1 IDE GRINDER Reason for Visit * Reason Comments Depression Fatigue Encounter Details Date Type Department Care Team (Late st Contact Info) Description 07/29/2019 1:40 PM CARBIDE GRINDER Office Visit [facility] Family & Internal Medicine - [address] [place] [address] Aracely Armstrong APNP [address] [place], [place] [phone] Depression; Fatigue Social History Tobacco Use Types Packs/Day Years [...] CDT Gender Identity Female 07/17/2022 10:27 AM CARBIDE GRINDER Sexual Orientation Straight 07/17/2022 10 :27 AM CARBIDE GRINDER documented as of this encounter Last Filed Vital Signs Vital Sign Reading Time Taken Comments Blood Pressure 132/88 07/29/2019 1:45 PM CARBIDE GRINDER Pulse 138 07/29/2019 1:45 PM CARBIDE GRINDER Temperature 36.2 ??C (97.2 ??F) 07/29/2019 1:45 PM CS T Respiratory Rate 18 07/29/2019 1:45 PM CARBIDE GRINDER Oxygen Saturation 95% 07/29/2019 1:45 PM CARBIDE GRINDER Inhaled Oxygen Concentration - - Weight 139.3 kg (307 lb) 07/29/2019 1:45 PM CARBIDE GRINDER Height 162.6 cm (5' 4) 07/29/2019 1:45 PM CARBIDE GRINDER Body Mass Index 52.7 07/29/2019 1:45 PM CARBIDE GRINDER documented in this encounter Progress Notes * YOBANI Cruz - 07/29/2019 1:40 PM CSTAddended by: ARACELY ARMSTRONG on: 07/31/2019 06:45 PM Modules accepted: Orders IDE GRINDER * YOBANI Cruz - 07/29/2019 1:40 PM CST Images from the original note were not included. [facility] FAMILY AND INTERNAL MEDICINE OFFICE VISIT Reason for Visit: Depression and Fatigue History of Present Illness: Pt here today states her anxiety and depression has worsened for the last couple of months----worsened over the last couple of weeks. She is accompanied at today's visit by her . Pt states shehas been sad, lonely, depressed, alternating sweating and freezing, fatigue and nausea. She states she is constantly crying and has trouble (lack of motivation) getting out of bed. She denies any HI or SI and does not feel she is a threat to herself or anyone else. Apparently, patient's mother this time of year several years ago and she states she seems to struggle with depression around this time of year. Patient's also notes that patient lost herdomestic cat of 20 years at the beginning of May he feels this has really affected her negatively. Her last visit with me was in 04/22/2019--she was supposed to have followed up the beginning of May, but did not. At that time we were working on her anxiety, insomnia and depression. She had been started on Rexulti and feels that her symptoms worsened since starting this. A 1 mg dose is in her chart--but pt states she has only been taking half of this dose. We will discontinue. She has an appt scheduled with psychiatry next week. She takes PRN lorazepam and states due to symptoms the pastfew days has had to increase daily use as this is the only thing that seems to calm her down . Cautioned on this without medical supervision. She was seen at [facility] on July 24, 2019 with complaints of worsening anxiety, lack of focus, nausea,difficulty breathing, difficulty sleeping.. According to Dr. Berumen's note patient states symptoms wax and wane quite often. She stated at that time she felt like she did when she had pneumonia. No adventitious breath soundswere heard. She was given an albuterol breathing treatment which she states did help with the breathing symptoms. She declines any breathing symptoms at today's visit. 02 Sats are 95%. Patient was tachycardic at that visit an EKG was ordered, but I am having trouble viewing the results. In regards to patient's labs she has had a history of an elevated white blood cell count. She does have a hematology appointment next month for further evaluation. At Dr. Berumen's visit, Dr. Berumen also and encouraged patient to go to the ER for fluids and to see if her heart rate would come down. In her note she states patient declined stating this elevated heart rate is normal for her. Her TSH was normal in December but I will recheck this again today along with a CBC and CMP and UA. She has a diagnosis of adrenal adenoma and has been previously referred to endocrinology. Follow-uptesting was ordered per patient's last executive vice president of sales, but patient never followed through with having any of this testing done. Her initial executive vice president of sales left at bedtime at bedtime so a new referral if not to have been initiated for new executive vice president of sales. The last referral being placed in December 2018. Patient has never followed up with endocrinology regarding this condition. She does take metoprolol and states she has not missed any doses. She denies any abd pain, urinary symptoms, shortness of breath, CP, heart palpitations, lower extremity edema, confusion or RUDD at today's visit. BP is controlled. Over the past couple of years--we have had to make changes and increases in her BP meds due to HTN. Metoprolol has been increased more than once due to tachycardia. PHQ-9 score positive at 22 and RIAZ-7 score positive at 12. She is not a smoker and denies any alcohol or illicit drug use. ROS: Review of Systems Constitutional: Positive for malaise/fatigue. Negative for chills and fever. HENT: Negative for congestion, ear pain, hearing loss, sinus pain and sore throat. Eyes: Negative for blurred vision, double vision and pain. Respiratory: Negative for cough, shortness of breath and wheezing. Cardiovascular: Negative for chest pain, palpitations and leg swelling. Gastrointestinal: Positive for nausea. Negative for abdominal pain, blood in stool, constipation, diarrhea, melena and vomiting. Genitourinary: Negative for dysuria, flank pain, frequency and urgency. Musculoskeletal: Negative for joint pain and myalgias. Skin: Negative for itching and rash. Neurological: Negative for dizziness, sensory change, speech change, focal weakness and headaches. Psychiatric/Behavioral: Positive for depression. Negative for suicidal ideas. The patient is nervous/anxious and has insomnia. Medications: Current Outpatient Medications: ??? AMLODIPINE 5 MG tablet, TAKE 1 TABLET BY MOUTH EVERY DAY, Disp: 90 tablet, Rfl: 1 ??? buPROPion SR (WELLBUTRIN SR) 150 MG 12 hr tablet, Take one tablet once daily for 3 days and then increase to one tablet twice daily., Disp: 60 tablet, Rfl: 0 ??? ENPRESSE-28 tablet, TAKE 1 TABLET BY MOUTH EVERY DAY, Disp: 84 tablet, Rfl: 0 ??? hydrochlorothiazide 25 MG tablet, Take 1 tablet (25 mg total) by mouth daily., Disp: 90 tablet,Rfl: 1 ??? IBUPROFEN 800 MG tablet, TAKE 1 TABLET BY MOUTH EVERY 6 HOURS NEEDED FOR PAIN., Disp: 90 tablet, Rfl: 0 ??? lisinopril 40 MG tablet, Take 1 tablet (40 mg total) by mouth daily., Disp: 90 tablet, Rfl: 3 ??? lorazepam 0.5 MG tablet, Take 1 tablet (0.5 mg total) by mouth 3 (three) times daily., Disp: 15tablet, Rfl: 0 ??? lorazepam 1 MG tablet, Take 1 tablet (1 mg total) by mouth every 8 (eight) hours as needed for Anxiety., Disp: 90 tablet, Rfl: 0 ??? METFORMIN 500 MG tablet, TAKE 1 [...] daily., Disp: 90 tablet, Rfl: 1 ??? ondansetron 4 MG tablet, TAKE 1 TABLET BY MOUTH EVERY 6 HOURS NEEDED FOR NAUSEA/VOMITING, Disp: , Rfl: 1 ??? pantoprazole EC 40 MG tablet, Take 1 tablet (40 mg total) by mouth daily., Disp: 90 tablet, Rfl: 3 ??? VENLAFAXINE XR 75 MG 24 hr capsule, TAKE ONE CAPSULE BY MOUTH EVERY MORNING AND TAKE 2 CAPSULESEVERY EVENING, Disp: 270 capsule, Rfl: 1 ??? zolpidem 10 MG tablet, Take 1 tablet (10 mg total) by mouth nightly as needed for Sleep., Disp:30 tablet, Rfl: 0 Allergies: No Known Allergies Medical History: Past Medical History: Diagnosis Date ??? Anxiety 09/20/2017 ??? Cholecystitis 06/11/2018 ??? Esophageal reflux 04/22/2013 ??? Hypertension 06/19/2012 ??? Insomnia 04/02/2018 ??? Menorrhagia 04/02/2018 ??? Morbid obesity (CMS/FORMERLY [facility]) 09/23/2013 ??? Obstructive sleep apnea 08/02/2012 ??? [...] file Gets together: Not on file Attends mandaeism service: Not on file Active member of club or organization: Not on file Attends meetings of clubs or organizations: Not on file Relationship status: Not on file ??? Intimate partner violence: Fear of current or ex partner: Not on file Emotionally abused: Not on file Physically abused: Not on file Forced sexual activity: Not on file Other Topics Concern ??? Not on file [...] and well-developed, well-nourished, and in no distress. Pt is not tearful in exam room today but does appear a little flat. She is answering all of my questions appropriately. HENT: Head: Normocephalic and atraumatic. Eyes: Conjunctivae and EOM are normal. Pupils are equal, round, and reactive to light. No scleral icterus. Neck: Normal range of [...] no guarding. Musculoskeletal: Normal range of motion. She exhibits no deformity. Neurological: She is alert and oriented to person, place, and time. No cranial nerve deficit. Gait normal. Skin: Skin is warm and dry. No rash noted. No erythema. No pallor. Psychiatric: Mood and affect normal. Nursing note and vitals reviewed. Filed Vitals: 07/29/19 1345 BP: 132/88 Pulse: 138 Resp: 18 Temp: 97.2 ??F (36.2 ??C) SpO2: 95% Weight: (!) 139.3 kg (307 lb) Height: 5' 4 (1.626 m) Labs: Labs Reviewed Diagnoses/Impression: 1. Anxiety COMPREHENSIVE METABOLIC PANEL TSH W/REFLEX VENIPUNC ARM DRAW lorazepam 1 MG tablet buPROPion SR (WELLBUTRIN SR) 150 MG 12 hr tablet Chronic 2. Recurrent major depressive disorder, in partial remission (CMS/HCC) TSH W/REFLEX VENIPUNC ARM DRAW buPROPion SR (WELLBUTRIN SR) 150 MG 12 hr tablet Chronic 3. Primary insomnia TSH W/REFLEX VENIPUNC ARM DRAW Chronic 4. Tachycardia CBC W/DIFF AUTOMATED COMPREHENSIVE METABOLIC PANEL TSH W/REFLEX URINALYSIS WI REFLEX TO CULTURE VENIPUNC ARM DRAW AMB REFERRAL TO CARDIOLOGY, ADULT 5. Essential hypertension Chronic 6. Adenoma of left adrenal gland Recommendations and Plan: 1. Anxiety - COMPREHENSIVE METABOLIC PANEL; Future - TSH W/REFLEX; Future - COMPREHENSIVE METABOLIC PANEL - TSH W/REFLEX - VENIPUNC ARM DRAW - lorazepam 1 MG tablet; Take 1 tablet (1 mg total) by mouth every 8 (eight) hours as needed for Anxiety. Dispense: 90 tablet; Refill: 0 - buPROPion SR (WELLBUTRIN SR) 150 MG 12 hr tablet; Take one tablet once daily for 3 days and then increase to one tablet twice daily. Dispense: 60 tablet; Refill: 0 Lorazepam refilled at a higher dose. I did discuss in detail the risks, benefits and side effects of this medication including addiction potential. I instructed the patient to try to take half a tablet during the day once to twice in a full tablet at night if needed to help with sleep. Patient verbalized understanding and states will try this. 2. Recurrent major depressive disorder, in partial remission (CMS/FORMERLY [facility]) - TSH W/REFLEX; Future - TSH W/REFLEX - VENIPUNC ARM DRAW - buPROPion SR (WELLBUTRIN SR) 150 MG 12 hr tablet; Take one tablet once daily for 3 days and then increase to one tablet twice daily. Dispense: 60 tablet; Refill: 0 We will discontinue the Rexulti. Patient was given instructions on discontinuation of this medication. Would like for her to hold off for a few days before initiating the Wellbutrin that we ordered today. She was advised of risk, benefits and side effects of the Wellbutrin. She denies any history of seizures. I would like to see patient back next week, sooner if symptoms change or worsen. 3. Primary insomnia - TSH W/REFLEX; Future - TSH W/REFLEX - VENIPUNC ARM DRAW Stable continue use of lorazepam to help with sleep for now. When feeling better will initiate a new medication for sleep. 4. Tachycardia - CBC W/DIFF AUTOMATED; Future - COMPREHENSIVE METABOLIC PANEL; Future - TSH W/REFLEX; Future - URINALYSIS WI REFLEX TO CULTURE; Future - CBC W/DIFF AUTOMATED - COMPREHENSIVE METABOLIC PANEL - TSH W/REFLEX - URINALYSIS WI REFLEX TO CULTURE - VENIPUNC ARM DRAW Unsure of exact cause of patient's continued tachycardia. I would like for patient to continue follow-up with endocrinology and continue work-up/evaluation of her adrenal adenoma. In the meantime will check CBC, CMP, TSH and UA today. More plan after results. Patient is to let me know or go to the ER if symptoms change or worsen. Otherwise, I will see patient in 1 week for follow-up. 5. Essential hypertension Stable. Continue meds. 6. Adenoma of left adrenal gland I would like for patient to continue follow-up with endocrinology. Referral should be current and in place. Time Spent: Approximately 45 minutes was spent in direct patient consultation and the majority of that time (>50%) was spent on counseling and coordination of care. Orders Placed This Encounter ??? VENIPUNC ARM DRAW ??? CBC W/DIFF AUTOMATED ??? COMPREHENSIVE METABOLIC PANEL ??? TSH W/REFLEX ??? URINALYSIS WI REFLEX TO CULTURE ??? Ambulatory referral to Cardiology, Adult (OTHER) ??? lorazepam 1 MG tablet ??? buPROPion SR (WELLBUTRIN SR) 150 MG 12 hr tablet Cannot display discharge medications since this is not an admission. PCP: YOBANI Cruz 07/31/2019 IDE GRINDER IDE GRINDER * YOBANI Cruz - 07/29/2019 1:40 PM CST Let patient know that her CBC was stable and she will need to continue follow-up with hematology asscheduled. Her liver enzymes are little bit elevated. If not too late can we add on a hepatitis B surface antigen and hepatitis C antibody please. Urine showed that she was slightly dehydrated. Encouraged her to increase her water intake. Please check on her to see how she is feeling and let me know. IDE GRINDER documented in this encounter Plan of Treatment Upcoming Encounters Date Type Department Care Team (Late st Contact Info) Description 07/25/2024 10:00 AM CARBIDE GRINDER Office Visit [facility] Medical Group Family & Internal Medicine - [address] [place] [address] Aracely Armstrong APNP [address] [place] [address] 07/31/2024 10:15 AM CARBIDE GRINDER Office Visit [facility] [address] [place], [place] [phone] Pepe Mitchell MD [facility] [address] [place], [place] [phone] Scheduled Referrals Name Type Priority Associated Diagnoses Orde r Schedule Ambulatory referral to Cardiology, Adult (OTHER) Referral Routine Tachycardia Ordered: 07/31/2019 documented as of this encounter Procedures Procedure Name Priority Date/Time Associated Diagnosis Comments VENIPUNC ARM DRAW Routine 07/29/2019 3:1 5 PM CARBIDE GRINDER Anxiety Recurrent major depressive disorder, in partial remission Primary insomnia Tachycardia URINALYSIS WI REFLEX TO CULTURE Routine 07/29/2019 2:47 PM CARBIDE GRINDER Tachycardia TSH W/REFLEX Routine 07/29/2019 2:47 PM CARBIDE GRINDER Anxiety Recurrent major depressive disorder, in partial remission Primary insomnia Tachycardia COMPREHENSIVE METABOLIC PANEL Routine 07/29/2019 2:47 PM CARBIDE GRINDER Anxiety Tachycardia CBC W/DIFF AUTOMATED Routine 07/29/2019 2:47 PM CARBIDE GRINDER Tachycardia documented in this encounter Results * (ABNORMAL) URINALYSIS WI REFLEX TO CULTURE (07/29/2019 2:47 PM CARBIDE GRINDER) COLOR (U) YELLOW YELLOW [place], [place] APPEARANCE SEMEN TURBID(A) CLEAR [place], [place] SPECIFIC GRAVITY (U) 1.018 1.001 - 1.035 [place], [place] PH (U) 6.0 5.0 - 8.0 [place], [place] URINE GLUCOSE NEGATIVE NEGATIVE [place], [place] BILIRUBIN (U) NEGATIVE NEGATIVE [place], [place] KETONE (U) NEGATIVE NEGATIVE [place], [place] BLOOD (U) NEGATIVE NEGATIVE [place], [place] PROTEIN (U) NEGATIVE NEGATIVE [place], [place] NITRITES NEGATIVE NEGATIVE [place], [place] LEUKOCYTES (U) NEGATIVE NEGATIVE [place], [place] WBC/HPF NONE SEEN < OR = 5 /HPF [place], [place] RBC/HPF NONE SEEN < OR = 2 /HPF [place], [place] SQUAMOUS EPITHELIAL (U) 6-10(A) < OR = 5 /HPF [place], [place] BACTERIA (U) NONE SEEN NONE SEEN /HPF [place], [place] HYALINE CASTS NONE SEEN NONE SEEN /LPF [place], [place] REFLEX URINE CULTURE: NO CULTURE INDICATED [place], [place] URINE SPECIMEN OBTAINED BY CLEAN CATCH PROCEDURE / Unknown 07/29/2019 2:47 PM CARBIDE GRINDER 07/29/2019 11:20 PM CARBIDE GRINDER Narrative Resulting Agency Comment Performing Organization Information: ?Site ID: ?Name[facility] ?Address: [facility] [place] [address] ?Director: Josiah Jones Aracely [facility] ORDERABLES Final Resu lt Performing Organization Address [facility] de Phone Number [facility] [id number] * TSH W/REFLEX (07/29/2019 2:47 PM CARBIDE GRINDER) TSH 1.59 mIU/L [facility] Comment: ?Reference Range ?> or = 20 Years ??0.40-4.50 ? Ranges ?First trimester ?0.26-2.66 ?Second trimester ?? 0.55-2.73 ?Third trimester ?0.43-2.91 07/29/2019 2:47 PM CARBIDE GRINDER 07/30/2019 4:30 AM CARBIDE GRINDER Narrative Resulting Agency Comment Performing Organization Information: ?Site ID: [id number] ?Name: [facility] ?Address: [address] [place] [address] ?Director: Servando Cervantes D.O., MPH Aracely [facility] Final Resul t Performing Organization Address [facility] Co de Phone Number [facility] * (ABNORMAL) COMPREHENSIVE METABOLIC PANEL (07/29/2019 2:47 PM CARBIDE GRINDER) GLUCOSE 109(H) 65 - 99 mg/dL [facility] Comment: ? Fasting reference interval For someone without known diabetes, a glucose value between 100 and 125 mg/dL is consistent with prediabetes and should be confirmed with a follow-up test. BUN 13 7 - 25 mg/dL [facility] CREATININE S/P/B 0.84 0.50 - 1.05 mg/dL [facility] Comment: For patients >49 years of age, the reference limit for Creatinine is approximately 13% higher for people identified as -[place]. EGFR NON-AFR. AMER. 81 > OR = 60 mL/min/1 .73m2 [facility] EGFR AFR. AMER. 94 > OR = 60 mL/min/1 .73m2 [facility] BUN CREATININE RATIO NOT APPLICABLE 6 - 22 (calc) [facility] SODIUM S/P/B 137 135 - 146 mmol/L [facility] POTASSIUM S/P/B 3.9 3.5 - 5.3 mmol/L [facility] CHLORIDE S/P/B 99 98 - 110 mmol/L [facility] CO2 26 20 - 32 mmol/L [facility] CALCIUM S/P/B 9.8 8.6 - 10.4 mg/dL [facility] TOTAL PROTEIN S/P/B 7.5 6.1 - 8.1 g/dL [facility] ALBUMIN S/P/B 3.8 3.6 - 5.1 g/dL [facility] GLOBULIN 3.7 1.9 - 3.7 g/dL (calc) [facility] ALBUMIN/GLOBULIN RATIO 1.0 1.0 - 2.5 (calc) [facility] BILIRUBIN TOTAL (FLUID) 0.3 0.2 - 1.2 mg/dL [facility] ALK PHOS 115 33 - 130 U/L [facility] AST 49(H) 10 - 35 U/L [facility] ALT 41(H) 6 - 29 U/L [facility] 07/29/2019 2:47 PM CARBIDE GRINDER 07/30/2019 4:30 AM CARBIDE GRINDER Narrative Resulting Agency Comment Performing Organization Information: ?Site ID: [id number] ?Name: [facility] ?Address: [address] [address] ?Director: Servando Cervantes D.O., MPH us Aracely [facility] Final Resul t [facility] * (ABNORMAL) CBC W/DIFF AUTOMATED (07/29/2019 2:47 PM CARBIDE GRINDER) WBC 13.3(H) 3.8 - 10.8 Thousand /uL [facility] RBC 5.16(H) 3.80 - 5.10 Million/ uL [facility] HGB 14.7 11.7 - 15.5 g/dL [facility] HCT 44.3 35.0 - 45.0 % [facility] MCV 85.9 80.0 - 100.0 fL [facility] MCH (QHPE) 28.5 27.0 - 33.0 pg [facility] MCHC 33.2 32.0 - 36.0 g/dL [facility] RDW (QHPE) 15.1(H) 11.0 - 15.0 % [facility] PLT 463(H) 140 - 400 Thousand /uL [facility] MPV 9.6 7.5 - 12.5 fL [facility] ABS. NEUTROPHILS 3,937 1,500 - 7,800 cells/uL [facility] ABS. LYMPHOCYTES 8,113(H) 850 - 3,900 cells/uL [facility] ABS. MONOCYTES 1,037(H) 200 - 950 cells/uL [facility] ABS. EOSINOPHILS 67 15 - 500 cells/uL [facility] ABS. BASOPHILS 146 0 - 200 cells/uL [facility] SEG NEUTROPHILS 29.6 % [facility] LYMPHOCYTES 61.0 % [facility] MONOCYTES 7.8 % [facility] EOSINOPHILS 0.5 % [facility] BASOPHILS 1.1 % [facility] CBC COMMENT Review of peripheral smear confirms automated results. [facility] 07/29/2019 2:47 PM CARBIDE GRINDER 07/30/2019 4:30 AM CARBIDE GRINDER Narrative Resulting Agency Comment Performing Organization Information: ?Site ID: [id number] ?Name: [facility] ?Address: [address] [address] ?Director: Servando Cervantes D.O., MPH us Aracely [facility] Final Resul t [facility] documented in this encounter Visit Diagnoses Diagnosis Anxiety- Primary Anxiety state, unspecified Recurrent major depressive disorder, in partial remission (CMS/HCC) Primary insomnia Persistent disorder of initiating or maintaining sleep Tachycardia Tachycardia, unspecified Essential hypertension Unspecified essential hypertension Adenoma of left adrenal gland Benign neoplasm of adrenal gland documented in this encounter Additional Health Concerns Assessment Noted Time PHQ-9 Depression Total Score: 22 07/29/ 020 3:46 PM CARBIDE GRINDER documented as of this encounter Care Teams Information Services Consultant Relationship Specialty Start Date End Date Aracely Armstrong APNP [address] [place] [address] PCP - General NURSE PRACTITIONER 05/06/18 documented as of this encounter
--- OUTSIDE RECORDS SUMMARY | 2024-07-10 23:00 | XMS_ITS | Encounter Summary ---
Author Organization [facility] Address [address] [place] [address]. [place], [place] [address] [place] [address] Care Team Providers Care Food Production Supervisor Name Role Phone Keyonna Armstrong Primary Care Provider [phone] Reason for Visit * Reason Onset Date Comments Appointment Request 04/10/2019 Encounter Details Date Type Department Care Team (Late Contact Info) Description 04/10/[address] [facility] Diabetes and Endocrinology - [address] [address] Camilla Solis MD Appointment Request Social History Tobacco Use Types [...] CDT Gender Identity Female 07/17/2022 10:27 AM REGISTER REPAIRER Sexual Orientation Straight 07/17/2022 10 :27 AM REGISTER REPAIRER documented as of this encounter Progress Notes * Padmaja Daily - 04/10/2019 11:43 AM CDT LM for pt to discuss scheduling options on a referral (2nd call) documented in this encounter Plan of Treatment Upcoming Encounters Date Type Department Care Team (Late st Contact Info) Description 07/25/2024 10:00 AM REGISTER REPAIRER Office Visit [facility] Family & Internal Medicine - [place] [address] [place] [address] Keyonna Armstrong APNP [address] [place] [address] 07/31/2024 10:15 AM REGISTER REPAIRER Office Visit [facility], [facility] [address] [place], [place] [address] Pepe Mitchell MD Three [facility]. [facility] [address] [place], [place] [id number] documented as of this encounter Visit Diagnoses Not on filedocumented in this encounter Additional Health Concerns Assessment Noted Time PHQ-9 Depression Total Score: 12 019 9:59 AM CDT documented as of this encounter Care Teams Food Production Supervisor Relationship Specialty Start Date End Date Keyonna Armstrong APNP [address] [place] [address] PCP - General NURSE PRACTITIONER 05/06/18 documented as of this encounter
--- OUTSIDE RECORDS SUMMARY | 2024-07-10 23:00 | XMS_ITS | Encounter Summary ---
Author Organization [facility] Address Critical access hospital6 [facility]. [place], [place] [address] [place] [address] Care Team Providers Care Plycor Operator Name Role Phone Keyonna Armstrong Primary Care Provider [phone] Reason for Referral * Consultation (Routine) - Closed Specialty Diagnoses / Procedures Referred By Contac t Referred To Contact GASTROENTEROLOGY Diagnoses Colon cancer screening Keyonna Armsrtong APNP [address] [place] [address] Phone: tel: fax: Burt Payne MD [address] [place] [address] Phone: tel: fax: Referral ID Status Reason Start Date Expiration Date Visits Re quested Visits Authorized [id number] Closed 08/08/2019 03/05/2020 7 7 * Imaging (Urgent) - Closed Specialty Diagnoses / Procedures Referred By Contac t Referred To Contact RADIOLOGY Diagnoses Breast cancer screening Procedures MG SCREENING CATALINA DIGI Keyonna Armstrong APNP [address] [place] [address] Phone: tel: fax: [place] [address] [place] [address] Phone: tel: fax: Referral ID Status Reason Start Date Expiration Date Visits Re quested Visits Authorized [id number] Closed 04/22/2019 04/22/2020 1 1 Reason for Visit * Reason Comments Sleep Problem Encounter Details Date Type Department Care Team (Late st Contact Info) Description 04/22/2019 2:00 PM CDT Office Visit [facility] Family & Internal Medicine - [place] [address] [place] [address] Keyonna Armstrong APNP [address] [place] [address] Sleep Problem Social History Tobacco Use Types [...] CDT Gender Identity Female 07/17/2022 10:27 AM SOLAR SYSTEMS DESIGNER Sexual Orientation Straight 07/17/2022 10 :27 AM SOLAR SYSTEMS DESIGNER documented as of this encounter Last Filed Vital Signs Vital Sign Reading Time Taken Comments Blood Pressure 133/78 04/22/2019 2:07 PM CDT Pulse 52 04/22/2019 2:07 PM CDT Temperature 35.8 ??C (96.4 ??F) 04/22/2019 2:07 PM CD T Respiratory Rate 16 04/22/2019 2:07 PM CDT Oxygen Saturation 94% 04/22/2019 2:07 PM CDT Inhaled Oxygen Concentration - - Weight 138.3 kg (305 lb) 04/22/2019 2:07 PM CDT Height 162.6 cm (5' 4) 04/22/2019 2:07 PM CDT Body Mass Index 52.35 04/22/2019 2:07 PM CDT documented in this encounter Progress Notes * YOBANI Cruz - 04/22/2019 2:00 PM CDT Images from the original note were not included. [facility] OFFICE VISIT Reason for Visit: Sleep Problem History of Present Illness: She is here today for insomnia follow up. She states she is no longer sleeping well despite taking ambien daily. She has tried Lunesta and trazodone in the past. The trazodone caused her to have hallucinations and the Lunesta did not help her sleep---felt it had no effect at all. She is wondering if there is another option to help with sleep. She continues to use her CPAP nightly. She states for the most part----she doesn't have much trouble getting to sleep---but notices after a couple of hours, she is awake and has difficulty returning to sleep. Feels tired throughout the day due to this. She has a diagnosis of ZENON and does wear her CPAP nightly. She is treated for depression with Rexulti. She feels that when she was on a lower dose----her symptoms were better. Would like to reduce dose if possible to see if symptoms improve again. Discussed maybe increasing the dose may help as her current dose is low---would still like to decrease does ifpossible for a couple of weeks to see if symptoms improve. Denies any HI/SI. She would also like to have her flu and Prevnar 13 shot today if possible. Recent labs showed a slightly, but improving, CBC---will recheck this today. She is due for a routine screening mammogram and colonoscopy. These will be discussed and ordered today if applicable ROS: Review of Systems Constitutional: Negative for chills and fever. HENT: Negative for congestion and hearing loss. Eyes: Negative for blurred vision and double vision. Respiratory: Negative for cough, shortness of breath and wheezing. Cardiovascular: Negative for chest pain and palpitations. Gastrointestinal: Negative for abdominal pain, diarrhea, nausea and vomiting. Genitourinary: Negative for dysuria and urgency. Neurological: Negative for dizziness and headaches. Psychiatric/Behavioral: Positive for depression. Negative for suicidal ideas. The patient has insomnia. The patient is not nervous/anxious. Medications: Current Outpatient Medications: ??? AMLODIPINE 5 MG tablet, TAKE 1 TABLET BY MOUTH EVERY DAY, Disp: 90 tablet, Rfl: 1 ??? brexpiprazole (REXULTI) 1 MG tablet, Take 1 tablet (1 mg total) by mouth daily., Disp: 30 tablet, Rfl: 2 ??? ENPRESSE-28 tablet, TAKE 1 TABLET BY [...] daily., Disp: 90 tablet, Rfl: 3 ??? LORAZEPAM 0.5 MG tablet, TAKE 1 TABLET BY MOUTH THREE TIMES A DAY NEEDED, Disp: 90 tablet, Rfl: 0 ??? METFORMIN 500 MG tablet, TAKE 1 TABLET BY MOUTH EVERY MORNING AND THEN TAKE 2 TABLETS AT BEDTIME, Disp: 270 tablet, Rfl: 0 ??? methocarbamol 750 MG Tab, Take 1-2 tablets (750-1,500 mg total) by mouth 3 (three) times daily as needed., Disp: 180 tablet, Rfl: 1 ??? metoprolol succinate ER 100 MG 24 hr tablet, Take 1 tablet (100 mg total) by mouth daily., Disp: 90 tablet, Rfl: 1 ??? ondansetron 4 MG tablet, TAKE 1 TABLET BY MOUTH EVERY 6 HOURS NEEDED FOR NAUSEA/VOMITING, Disp: , Rfl: 1 ??? pantoprazole 40 MG tablet, Take 1 tablet (40 mg total) by mouth daily., Disp: 90 tablet, Rfl: 3 ??? REXULTI 0.5 MG tablet, TAKE 1 TABLET BY MOUTH EVERY DAY, Disp: 30 tablet, Rfl: 0 ??? Suvorexant (BELSOMRA) 10 MG Tab, Take 10 mg by mouth nightly., Disp: 30 tablet, Rfl: 0 ??? venlafaxine XR 75 MG 24 hr capsule, Take 1 capsule (75 mg total) by mouth daily. (Patient taking differently: Take 75 mg by mouth 3 (three) times daily. ), Disp: 270 capsule, Rfl: 1 Allergies: No Known Allergies Medical History: Past [...] file Gets together: Not on file Attends yarsani service: Not on file Active member of [...] no distress. HENT: Head: Normocephalic and atraumatic. Eyes: Conjunctivae and EOM are normal. No scleral icterus. Neck: Normal range of motion. Neck supple. No tracheal deviation present. Cardiovascular: Normal rate, regular rhythm and normal heart sounds. No murmur heard. Pulmonary/Chest: Effort normal and breath sounds normal. No stridor. No respiratory distress. She has no wheezes. She has no rales. Musculoskeletal: Normal range of motion. She exhibits no deformity. Neurological: She is alert and oriented to person, place, and time. Gait normal. Skin: Skin is warm and dry. No rash noted. No erythema. No pallor. Psychiatric: Mood and affect normal. Nursing note and vitals reviewed. Filed Vitals: 04/22/19 1407 BP: 133/78 Pulse: 52 Resp: 16 Temp: 96.4 ??F (35.8 ??C) SpO2: 94% Weight: (!) 138.3 kg (305 lb) Height: 5' 4 (1.626 m) Labs: Labs Reviewed Diagnoses/Impression: 1. Primary insomnia Suvorexant (BELSOMRA) 10 MG Tab Chronic 2. Need for prophylactic vaccination against Streptococcus pneumoniae (pneumococcus) PNEUMOCOCCAL CONJUGATE VACCINE 13 VALENT IM 3. Need for immunization against influenza FLU VACC QUAD PRSRV FREE 0.5 ML DOSE 4. Breast cancer screening MG SCREENING CATALINA DIGI 5. Abnormal CBC CBC W/DIFF AUTOMATED VENIPUNC ARM DRAW 6. Recurrent major depressive disorder, in partial remission (CMS/HCC) Chronic 7. Colon cancer screening AMB REF TO GASTROENTEROLOGY Recommendations and Plan: 1. Need for prophylactic vaccination against Streptococcus pneumoniae (pneumococcus) - PNEUMOCOCCAL CONJUGATE VACCINE 13 VALENT IM 2. Need for immunization against influenza - FLU VACC QUAD PRSRV FREE 0.5 ML DOSE 3. Breast cancer screening - MG SCREENING CATALINA DIGI Due for routine mammo screening---ordered today. More plan after results. 4. Abnormal CBC - CBC W/DIFF AUTOMATED; Future - CBC W/DIFF AUTOMATED - VENIPUNC ARM DRAW Plan to recheck CBC. More plan after results. 5. Primary insomnia - Suvorexant (BELSOMRA) 10 MG Tab; Take 10 mg by mouth nightly. Dispense: 30 tablet; Refill: 0 Ambien dc'd--Belsomra ordered--advised of risks, benefits and side effects. Will see pt back in onemonth for follow up. 6. Recurrent major depressive disorder, in partial remission (CMS/HCC) For the most part symptoms are stable. Feels like she felt better on the lower dose---will take 1/2tab and let me know if symptoms improve. Orders Placed This Encounter ??? VENIPUNC ARM DRAW ??? [[id number]] Prevnar 13 (Pneumococcal) ??? [[id number]] FLU VACC QUAD 6 MONTHS+ 0.5 ML (SINGLE DOSE SYRINGE FLUZONE, FLUARIX, FLULAVAL OR SINGLE DOSE VIAL FLUZONE) ??? CBC W/DIFF AUTOMATED ??? Ambulatory referral to Gastroenterology (OTHER) ??? MG SCREENING CATALINA DIGI ??? Suvorexant (BELSOMRA) 10 MG Tab Cannot display discharge medications since this is not an admission. PCP: YOBANI Cruz 04/23/2019 * YOBANI Cruz - 04/22/2019 2:00 PM CDT Let pt know not sure why CBC remains abnormal----please refer to Hem/Onc for further eval. Dx--elevated platelets and neutrophilia documented in this encounter Plan of Treatment Upcoming Encounters Date Type Department Care Team (Late st Contact Info) Description 07/25/2024 10:00 AM SOLAR SYSTEMS DESIGNER Office Visit [facility] Family & Internal Medicine - [place] [address] [place] [address] Keyonna Armstrong APNP [address] [place] [address] 07/31/2024 10:15 AM SOLAR SYSTEMS DESIGNER Office Visit [facility], [facility] [address] [place], [place] [id number] Pepe Mitchell MD [facility]. [facility] [address] [place], [place] [phone] Scheduled Orders Name Type Priority Associated Diagnoses Orde r Schedule MG SCREENING CATALINA DIGI MAMMO Routine Breast cancer screening Ordered: 04/22/2019 Scheduled Referrals Name Type Priority Associated Diagnoses Orde r Schedule Ambulatory referral to Gastroenterology (OTHER) Referral Routine Colon cancer screening Ordered: 04/23/2019 documented as of this encounter Procedures Procedure Name Priority Date/Time Associated Diagnosis Comments VENIPUNC ARM DRAW Routine 04/22/2019 3:2 8 PM CDT Abnormal CBC CBC W/DIFF AUTOMATED Routine 04/22/2019 2:45 PM CDT Abnormal CBC documented in this encounter Results * (ABNORMAL) CBC W/DIFF AUTOMATED (04/22/2019 2:45 PM CDT) WBC 14.1(H) 3.8 - 10.8 Thousand/ uL [facility] RBC 4.80 3.80 - 5.10 Million/u L [facility] HGB 13.7 11.7 - 15.5 g/dL [facility] HCT 41.9 35.0 - 45.0 % [facility] MCV 87.3 80.0 - 100.0 fL [facility] MCH (QHPE) 28.5 27.0 - 33.0 pg [facility] MCHC 32.7 32.0 - 36.0 g/dL [facility] RDW (QHPE) 14.2 11.0 - 15.0 % [facility] PLT 423(H) 140 - 400 Thousand/ uL [facility] MPV 9.8 7.5 - 12.5 fL [facility] ABS. NEUTROPHILS 8,347(H) 1,500 - 7,800 cells/uL [facility] ABS. LYMPHOCYTES 4,526(H) 850 - 3,900 cells/uL [facility] ABS. MONOCYTES 1,001(H) 200 - 950 cells/uL [facility] ABS. EOSINOPHILS 155 15 - 500 cells/uL [facility] ABS. BASOPHILS 71 0 - 200 cells/uL [facility] SEG NEUTROPHILS 59.2 % [facility] LYMPHOCYTES 32.1 % [facility] MONOCYTES 7.1 % [facility] EOSINOPHILS 1.1 % [facility] BASOPHILS 0.5 % [facility] 04/22/2019 2:45 PM CDT 04/23/2019 5:24 AM CDT Narrative Resulting Agency Comment Performing Organization Information: ?Site ID: [id number] ?Name: Nely Hutchison ?Address: [facility] [place] [address] ?Director: Servando Cervantes D.O., MPH Keyonna [facility] Edited Resu lt - Final [facility] documented in this encounter Visit Diagnoses Diagnosis Primary insomnia- Primary Persistent disorder of initiating or maintaining sleep Need for prophylactic vaccination against Streptococcus pneumoniae (pneumococcus) Need for prophylactic vaccination against streptococcus pneumoniae (pneumococcus) Need for immunization against influenza Need for prophylactic vaccination and inoculation against influenza Colon cancer screening Special screening for malignant neoplasms, colon Abnormal CBC Other abnormal blood chemistry Recurrent major depressive disorder, in partial remission (CMS/HCC) documented in this encounter Additional Health Concerns Assessment Noted Time PHQ-9 Depression Total Score: 12 019 9:59 AM CDT documented as of this encounter Care Teams Plycor Operator Relationship Specialty Start Date End Date Keyonna Armstrong APNP [facility] [place] [address] PCP - General NURSE PRACTITIONER 05/06/18 documented as of this encounter
--- OUTSIDE RECORDS SUMMARY | 2024-07-10 23:00 | XMS_ITS | Encounter Summary ---
Author Organization [facility] Address [address] [place] [address]. [place], [place] [address] [place] [address] Care Team Providers Care Rehab Care Assistant Name Role Phone Keyonna Armstrong Primary Care Provider [phone] Encounter Details Date Type Department Care Team (Latest Contact Info) Description 02/17/2019 Scan HEALTH INFO SRVCS Scanned, Documents Social [...] CDT Gender Identity Female 07/17/2022 10:27 AM SWATCHER Sexual Orientation Straight 07/17/2022 10 :27 AM SWATCHER documented as of this encounter Plan of Treatment Upcoming Encounters Date Type Department Care Team (Late st Contact Info) Description 07/25/2024 10:00 AM SWATCHER Office Visit [facility] Family & Internal Medicine - [place] [address] [place] [address] Keyonna Armstrong APNP [address] [place] [address] 07/31/2024 10:15 AM SWATCHER Office Visit [facility] [address] [address] Pepe Mitchell MD [facility]. [facility] [address] [place] [address] documented as of this encounter Visit Diagnoses Not on filedocumented in this encounter Additional Health Concerns Assessment Noted Time PHQ-9 Depression Total Score: 12 019 9:59 AM CDT documented as of this encounter Care Teams Rehab Care Assistant Relationship Specialty Start Date End Date Keyonna Armstrong APNP [address] [place] [address] PCP - General NURSE PRACTITIONER 05/06/18 documented as of this encounter
--- OUTSIDE RECORDS SUMMARY | 2024-07-10 23:00 | XMS_ITS | Encounter Summary ---
Author Organization [facility] Address [address] [place] [address]. [place], [place] [address] [place] [address] Care Team Providers Care Belly Roller Name Role Phone Keyonna Armstrong Primary Care Provider [phone] Reason for Visit * Reason Comments Other Here for head and ch est congestion. Feels tired and run down. Encounter Details Date Type Department Care Team (Late st Contact Info) Description 07/24/2019 4:20 PM ASW/ASUW TACTICAL AIR CONTROLLER Office Visit [facility] Family and Sports Medicine [address] [address] Marge Mc, DO Other (Here for head and chest congestion. Feels tired and run down.) Social History Tobacco Use Types Packs/Day Years Used Date Smoking Tobacco: Never Smokeless Tobacco: Never Alcohol Use Standard Drinks/Week Comments No 0 (1 standard drink = 0.6 oz pur e alcohol) AUDIT-C Answer Date Recorded Frequency of Alcohol Consumption Never 06/11/2018 Average Number of Drinks Not on file 018 Frequency of Binge Drinking Not on file 05/24 PHQ-2 Answer Date Recorded PHQ-2 Score 2 06/18/2019 Comments Unknown Sex and Gender Information Value Date Recorded Sex Assigned at Not on file Legal Sex Female 5:47 PM CDT Gender Identity Female 07/17/2022 10:27 AM ASW/ASUW TACTICAL AIR CONTROLLER Sexual Orientation Straight 07/17/2022 10 :27 AM ASW/ASUW TACTICAL AIR CONTROLLER documented as of this encounter Last Filed Vital Signs Vital Sign Reading Time Taken Comments Blood Pressure 134/76 07/24/2019 4:39 PM ASW/ASUW TACTICAL AIR CONTROLLER Pulse 149 07/24/2019 4:39 PM ASW/ASUW TACTICAL AIR CONTROLLER Temperature 36.5 ??C (97.7 ??F) 07/24/2019 4:39 PM CS T Respiratory Rate - - Oxygen Saturation 95% 07/24/2019 4:39 PM ASW/ASUW TACTICAL AIR CONTROLLER Inhaled Oxygen Concentration - - Weight 138.3 kg (305 lb) 07/24/2019 4:39 PM ASW/ASUW TACTICAL AIR CONTROLLER Height - - Body Mass Index 52.35 04/22/2019 2:07 PM CDT documented in this encounter Progress Notes * Marge Mc, DO - 07/24/2019 4:20 PM CST Images from the original note were not included. OFFICE ACUTE VISIT Encounter Date: 07/24/2019 Chief Complaint: . 48-year-old female presents for Other (Here for head and chest congestion. Feels tired and run down.) HPI Here with for a variety of concerns. Had Chills at arrival for OV, then so hot she can barely focus. Nausea. Fatigue. Body aches. runny nose. Labored breathing for which nebulizer treatment helped some last night (none in about 18 hrs). Symptoms since 07/15. Alternating--fine one minute then not the next. Depression has flared since about 07/16. crying and can't focus. Poor sleep. She 2 mos ago began a new depression med, but she doesn't think it is working. She thought she had had 2 f/u visits with PCP since starting, but she has not. She feels a little like when she had pneumonia prior, except this time No cough. No chest congestion. No asthma history. She reports HR 120 normal for her. Even resting in office for some time with HR 150 she states it feels normal to her. Vital recorded in past 2 visits showed HR 84 and 52. HR faster and SOB with simple movement. No increased HR/palpitations at rest. Has been constipated. effexor not new--has been on for years. Drinks water some, but admits she does not drink much--wellbelow 64 oz per day. No missed metoprolol doses. TSH normal in December. High WBC for few mos being followed and she has a heme appt next month to investigate. Anxiety has been a problem and she is using 8-9 lorazepam per day, when 3 are prescribed. No rash or urinary symptoms or other than listed above. ROS See HPI Patient Active Problem List Diagnosis ??? Adrenal adenoma ??? Anxiety ??? Depression ??? Dyslipidemia ??? Esophageal reflux ??? High serum renin ??? History of motion sickness ??? Hypertension ??? Impaired fasting glucose ??? Insomnia ??? Long-term use of high-risk medication ??? Menorrhagia ??? Morbid obesity (CMS/HCC) ??? Obstructive sleep apnea ??? Retention of urine ??? Shortness of breath at rest ??? Right ovarian cyst ??? Sinus tachycardia ??? Cholecystitis Past Medical History: Diagnosis Date ??? Anxiety [...] file Gets together: Not on file Attends uatsdin service: Not on file Active member of [...] Social History Narrative ??? Not on file Current Outpatient Medications on File Prior to Visit Medication Sig Dispense Refill ??? AMLODIPINE 5 MG tablet TAKE 1 TABLET BY MOUTH EVERY DAY 90 tablet 1 ??? ENPRESSE-28 tablet TAKE 1 TABLET BY MOUTH EVERY DAY 84 tablet 0 ??? hydrochlorothiazide 25 MG tablet Take 1 tablet (25 mg total) by mouth daily. 90 tablet 1 ??? IBUPROFEN 800 MG tablet TAKE 1 TABLET BY MOUTH EVERY 6 HOURS NEEDED FOR PAIN. 90 tablet 0 ??? lisinopril 40 MG tablet Take 1 tablet (40 mg total) by mouth daily. 90 tablet 3 ??? LORAZEPAM 0.5 MG tablet TAKE 1 TABLET BY MOUTH THREE TIMES A DAY 90 tablet 0 ??? METFORMIN 500 MG tablet TAKE 1 TABLET BY MOUTH EVERY MORNING AND THEN TAKE 2 TABLETS AT [id number] tablet 0 ??? METHOCARBAMOL 750 MG Tab TAKE 1 TO 2 TABLETS BY MOUTH 3 TIMES A DAY NEEDED 180 tablet 1 ??? metoprolol succinate ER 100 MG 24 hr tablet Take 1 tablet (100 mg total) by mouth daily. 90 tablet 1 ??? ondansetron 4 MG tablet TAKE 1 TABLET BY MOUTH EVERY 6 HOURS NEEDED FOR NAUSEA/VOMITING 1 ??? pantoprazole EC 40 MG tablet Take 1 tablet (40 mg total) by mouth daily. 90 tablet 3 ??? REXULTI 0.5 MG tablet TAKE 1 TABLET BY MOUTH EVERY DAY 30 tablet 0 ??? REXULTI 1 MG tablet TAKE 1 TABLET BY MOUTH EVERY DAY 90 tablet 1 ??? VENLAFAXINE XR 75 MG 24 hr capsule TAKE ONE CAPSULE BY MOUTH EVERY MORNING AND TAKE 2 CAPSULES EVERY EVENING 270 capsule 1 ??? zolpidem 10 MG tablet Take 1 tablet (10 mg total) by mouth nightly as needed for Sleep. 30 tablet 0 No current facility-administered medications on file prior to visit. No Known Allergies Objective: Filed Vitals: 07/24/19 1639 BP: 134/76 Pulse: 149 Temp: 97.7 ??F (36.5 ??C) SpO2: 95% Weight: (!) 138.3 kg (305 lb) Physical Exam General Appearance: Well developed, well nourished, obese body habitus, pleasant and conversational. . Skin: Warm and dry w/o lesions, ulceration, bruising or rash . HEENT: PERRL, conjunctiva and lids normal. No scars, lesions or masses. Canals normal, TM intact w/o injection or fluid. Nares clear, septum midline. Posterior pharynx clear. Mucous membranes moist and pink. . Neck, Thyroid : Supple, non-tender, full ROM with no masses or cervical adenopathy. Thyroid midline w/o nodularity or enlargement . Heart: tachy 153 w/o murmur. No edema. No abdominal bruits. . Lungs: Non-labored, no sternal retraction, no accessory muscle use, CTA bilaterally, no wheeze or crackle . Abdomen: Normal bowel sounds all four quadrants, soft, slight tender to palpation diffusely, non-distended, no masses. No rebound, rigidity, or guarding . Psychiatric Alert and oriented x 3. Judgement, insight and cognitive ability appear normal. Recent and remote memory intact. Mood and affect appropriate patient did leave a blood spot on the table as she started her period unexpectedly Procedure: Procedures Labs: EKG sinus tachy 150 Flu neg Assessment/Plan: Encounter Diagnose(s) ICD-10-CM ICD-9-CM SNOMED CT(R) 1. Tachycardia R00.0 785.0 TACHYCARDIA ELECTROCARDIOGRAM, COMPLETE 2. Body aches R52 780.96 GENERALIZED ACHES AND PAINS INFLUENZA A & B 3. Depression with anxiety F41.8 300.4 MIXED ANXIETY AND DEPRESSIVE DISORDER Discussion/Summary: I was most concerned about her tachycardia. This could be her baseline sinus tachycardia exacerbated by dehydration and anxiety, or other more concerning etiology. I suggested going to ER for fluids and heart monitoring to make sure HR returns to normal, but patient refused as she feels this is normal for her. She did agree to hydrate tonight, aiming for 64 oz of fluid daily of non alcoholic or non caffeinated beverages. Her other symptoms could be a manifestation of depression. I could find nothing focal on exam, but she certainly was having some focus problems. She was not sure what could have brought on depressionand we discussed holidays, winter, menopause, and simple genetic predisposition. She was going to see if her PCP could see her tomorrow to discuss her medications. I felt that PCP should make adjustments as her regimen is complex. She may benefit from having some labs checked as well, but given shehad recent labs that were very normal with the exception of elevated WBC, I felt confident enough that her thyroid, H/H and lytes were OK to wait until f/u with PCP. She has support from her and was not a threat to herself or others. >40 minutes spent counseling and coordinating. MARGE MC DO /ASUW TACTICAL AIR CONTROLLER documented in this encounter Plan of Treatment Upcoming Encounters Date Type Department Care Team (Late st Contact Info) Description 07/25/2024 10:00 AM ASW/ASUW TACTICAL AIR CONTROLLER Office Visit [facility] Family & Internal Medicine - [address] [address] Keyonna Armstrong APNP [address] [place] [address] 07/31/2024 10:15 AM ASW/ASUW TACTICAL AIR CONTROLLER Office [facility], [facility] [address] [place] [address] Pepe Mitchell MD [facility]. [facility] [address] [place] [address] documented as of this encounter Procedures Procedure Name Priority Date/Time Associated Diagnosis Comments ELECTROCARDIOGRAM, COMPLETE Routine 08/13/2019 9:41 AM ASW/ASUW TACTICAL AIR CONTROLLER Tachycardia documented in this encounter Results * ELECTROCARDIOGRAM, COMPLETE (08/13/2019 9:41 AM ASW/ASUW TACTICAL AIR CONTROLLER) Marge Mc DO PROCEDURES-RESULTABLE Fin al Result documented in this encounter Visit Diagnoses Diagnosis Tachycardia- Primary Tachycardia, unspecified Body aches Generalized pain Depression with anxiety Dysthymic disorder documented in this encounter Additional Health Concerns Assessment Noted Time PHQ-9 Depression Total Score: 12 06/2 019 9:59 AM CDT documented as of this encounter Care Teams Belly Roller Relationship Specialty Start Date End Date Keyonna Armstrong APNP [address] [place] [address] PCP - General NURSE PRACTITIONER 05/06/18 documented as of this encounter
--- OUTSIDE RECORDS SUMMARY | 2024-07-10 23:00 | XMS_ITS | Encounter Summary ---
Author Organization [facility] Address [address] [place] [address]. [place] [id number] [place] [address] Care Team Providers Care Dyslexia Teacher Name Role Phone Keyonna Armstrong Primary Care Provider [phone] Reason for Visit * Reason Onset Date Comments Refill Request 02/07/2019 Encounter Details Date Type Department Care Team (Late st Contact Info) Description 02/07/2019 Telephone [facility] Family & Internal [place] [address] [place] [address] Keyonna Armstrong APNP [address] [place], [place] [id number] Refill Request Social History Tobacco Use Types [...] CDT Gender Identity Female 07/17/2022 10:27 AM CUSTOMS PORT DIRECTOR Sexual Orientation Straight 07/17/2022 10 :27 AM CUSTOMS PORT DIRECTOR documented as of this encounter Plan of Treatment Upcoming Encounters Date Type Department Care Team (Late st Contact Info) Description 07/25/2024 10:00 AM CUSTOMS PORT DIRECTOR Office Visit [facility] Family & Internal [address] [address] Keyonna Armstrong APNP [address] [place] [address] 07/31/2024 10:15 AM CUSTOMS PORT DIRECTOR Office Visit [facility], [facility] [address] [place], [place] [address] Pepe Mitchell MD Three [facility]. [facility] [address] [place] [address] documented as of this encounter Visit Diagnoses Diagnosis BMI 50.0-59.9, adult ([facility]) Body Mass Index 50.0-59.9, adult documented in this encounter Additional Health Concerns Assessment Noted Time PHQ-9 Depression Total Score: 12 01/14/ 019 9:59 AM CDT documented as of this encounter Care Teams Dyslexia Teacher Relationship Specialty Start Date End Date Keyonna Armstrong APNP [facility] [place] [address] PCP - General NURSE PRACTITIONER 05/06/18 documented as of this encounter
--- OUTSIDE RECORDS SUMMARY | 2024-07-10 23:00 | XMS_ITS | Encounter Summary ---
Author Organization [facility] Address [address] [place] [address]. [place], [place] [address] [place] [address] Care Team Providers Care Ehs Engineer Name Role Phone Keyonna Armstrong Primary Care Provider [phone] Reason for Visit * Reason Onset Date Comments Pre-visit Gap Closure 01/29/2019 Encounter Details Date Type Department Care Team (Late Contact Info) Description 01/29/2019 Telephone [facility] Family & Internal [facility] [address] [place] [address] Keyonna Armstrong APNP [address] [place] [address] Pre-visit Gap Closure Social History [...] CDT Gender Identity Female 07/17/2022 10:27 AM COPY CUTTER Sexual Orientation Straight 07/17/2022 10 :27 AM COPY CUTTER documented as of this encounter Plan of Treatment Upcoming Encounters Date Type Department Care Team (Late st Contact Info) Description 07/25/2024 10:00 AM COPY CUTTER Office Visit [facility] Family & Internal [place] [address] [place] [address] Keyonna Armstrong APNP [address] [place] [address] 07/31/2024 10:15 AM COPY CUTTER Office Visit [facility], [facility] [address] [place], [place] [address] Pepe Mitchell MD Three [facility]. [facility] [address] [place] [address] documented as of this encounter Visit Diagnoses Not on filedocumented in this encounter Additional Health Concerns Assessment Noted Time PHQ-9 Depression Total Score: 12 01/14/ 019 9:59 AM CDT documented as of this encounter Care Teams Ehs Engineer Relationship Specialty Start Date End Date Keyonna Armstrong APNP [address] [place] [address] PCP - General NURSE PRACTITIONER 05/06/18 documented as of this encounter
--- OUTSIDE RECORDS SUMMARY | 2024-07-10 23:00 | XMS_ITS | Encounter Summary ---
Author Organization [facility] Address [address] [place] [address]. [place], [place] [address] [place] [address] Care Team Providers Care Electronics Processing Supervisor Name Role Phone Keyonna Armstrong Primary Care Provider [phone] Reason for Visit * Reason Onset Date Comments Sleep Problem 05/08/2019 Encounter Details Date Type Department Care Team (Late st Contact Info) Description 05/08/2019 Telephone [facility] Family & Internal Medicine [facility] [address] [place] [address] Keyonna Armstrong APNP [address] [place] [address] Sleep Problem Social History Tobacco Use Types [...] CDT Gender Identity Female 07/17/2022 10:27 AM COMPUTER NUMERICAL CONTROL GRINDER Sexual Orientation Straight 07/17/2022 10 :27 AM COMPUTER NUMERICAL CONTROL GRINDER documented as of this encounter Progress Notes * Nenita Young MA - 05/12/2019 4:10 PM CDT Montrell turned in medication , pharmacy notified * Nenita Young MA - 05/12/2019 3:54 PM CDT Kerry the pharmacist stated they can not take medication especially controlled medications - montrell informed and is turning medication in * YOBANI Cruz - 05/12/2019 2:23 PM CDT Please call pharm and let know pt is unable to fill Zolpidem until Belsomra tuned in. Also--let pt know as well. * Nenita Young MA - 05/12/2019 2:00 PM CDT rx pended * Marcella Alvarenga MA - 05/12/2019 1:53 PM CDT LMTC 05/12/19 * YOBANI Cruz - 05/12/2019 12:27 PM CDT I don't mind to refill the Ambien CR, however the Belsomra was just filled on 04/22/2019---which has not been 30 days. She would need to turn in her left over Belsomra as they are both controlled meds before I will fill the other. * Nenita Young MA - 05/08/2019 1:22 PM CDT Patient states the belsomra is not helping , would like to try ambien er and if that is not coveredthe IR formulation please documented in this encounter Plan of Treatment Upcoming Encounters Date Type Department Care Team (Late st Contact Info) Description 07/25/2024 10:00 AM COMPUTER NUMERICAL CONTROL GRINDER Office Visit [facility] Family & Internal Medicine - [place] [address] [place] [address] Keyonna Armstrong APNP [address] [place] [address] 07/31/2024 10:15 AM COMPUTER NUMERICAL CONTROL GRINDER Office Visit [facility] THREE [facility], [facility] [address] [place], [place] [address] Pepe Mitchell MD [facility]. [facility] [address] [place] [address] documented as of this encounter Visit Diagnoses Diagnosis Primary insomnia- Primary Persistent disorder of initiating or maintaining sleep Anxiety Anxiety state, unspecified documented in this encounter Additional Health Concerns Assessment Noted Time PHQ-9 Depression Total Score: 12 019 9:59 AM CDT documented as of this encounter Care Teams Electronics Processing Supervisor Relationship Specialty Start Date End Date Keyonna Armstrong APNP [facility] [place] [address] PCP - General NURSE PRACTITIONER 05/06/18 documented as of this encounter
--- OUTSIDE RECORDS SUMMARY | 2024-07-10 23:00 | XMS_ITS | Encounter Summary ---
Author Organization [facility] Address [address] [place] [address]. [place], [place] [address] [place] [address] Care Team Providers Care Dip Guider Stoves Name Role Phone Keyonna Armstrong Primary Care Provider [phone] Encounter Details Date Type Department Care Team (Latest Contact Info) Description 02/04/2019 Scan HEALTH INFO SRVCS Scanned, Documents Social [...] Gender Identity Female 07/17/2022 10:27 AM CERTIFIED PHLEBOTOMIST Sexual Orientation Straight 07/17/2022 10 :27 AM CERTIFIED PHLEBOTOMIST documented as of this encounter Plan of Treatment Upcoming Encounters Date Type Department Care Team (Late st Contact Info) Description 07/25/2024 10:00 AM CERTIFIED PHLEBOTOMIST Office Visit [facility] Family & Internal Medicine - [place] [address] [place] [address] Keyonna Armstrong APNP [address] [place] [address] 07/31/2024 10:15 AM CERTIFIED PHLEBOTOMIST Office Visit [facility] THREE [facility], [place] [address] [place] [address] Pepe Mitchell MD Three [facility]. [place] [address] [place] [address] documented as of this encounter Visit Diagnoses Not on filedocumented in this encounter Additional Health Concerns Assessment Noted Time PHQ-9 Depression Total Score: 12 019 9:59 AM CDT documented as of this encounter Care Teams Dip Guider Stoves Relationship Specialty Start Date End Date Keyonna Armstrong APNP [address] [place] [address] PCP - General NURSE PRACTITIONER 05/06/18 documented as of this encounter
--- OUTSIDE RECORDS SUMMARY | 2024-07-10 23:00 | XMS_ITS | Encounter Summary ---
Author Organization [facility] Address [address] [place] [address]. [place], [place] [address] [place] [address] Care Team Providers Care Oncology Technician Name Role Phone Keyonna Armstrong Primary Care Provider [phone] Encounter Details Date Type Department Care Team (Late st Contact Info) Description 01/27/2019 10:40 AM CDT Laboratory Only [facility] Family & Internal Medicine [address] [phone] Social History Tobacco Use Types Packs/Day Years [...] CDT Gender Identity Female 07/17/2022 10:27 AM WINDOWS TECHNICAL SPECIALIST Sexual Orientation Straight 07/17/2022 10 :27 AM WINDOWS TECHNICAL SPECIALIST documented as of this encounter Plan of Treatment Upcoming Encounters Date Type Department Care Team (Late st Contact Info) Description 07/25/2024 10:00 AM WINDOWS TECHNICAL SPECIALIST Office Visit [facility] Family & Internal Medicine [address] [phone] Keyonna Armstrong APNP [address] [place] [address] 07/31/2024 10:15 AM WINDOWS TECHNICAL SPECIALIST Office [facility] THREE [facility], [place] [address] [place] [address] Pepe Mitchell MD Three [facility]. [place] [address] [place] [address] documented as of this encounter Procedures Procedure Name Priority Date/Time Associated Diagnosis Comments VENIPUNC ARM DRAW Routine 01/27/2019 10:48 AM CDT Anxiety Primary insomnia Recurrent major depressive disorder, in partial remission documented in this encounter Visit Diagnoses Diagnosis Anxiety- Primary Anxiety state, unspecified Primary insomnia Persistent disorder of initiating or maintaining sleep Recurrent major depressive disorder, in partial remission (CMS/HCC) documented in this encounter Additional Health Concerns Assessment Noted Time PHQ-9 Depression Total Score: 12 01/14/ 019 9:59 AM CDT documented as of this encounter Care Teams Oncology Technician Relationship Specialty Start Date End Date Keyonna Armstrong APNP [address] [place] [address] PCP - General NURSE PRACTITIONER 05/06/18 documented as of this encounter
--- OUTSIDE RECORDS SUMMARY | 2024-07-10 23:00 | XMS_ITS | Encounter Summary ---
Author Organization [facility] Address [address] [place] [address]. [place], [place] [address] [place] [address] Care Team Providers Care Edging Supervisor Name Role Phone Keyonna Armstrong Primary Care Provider [phone] Reason for Visit * Reason Onset Date Comments Lab Results 03/20/2019 Encounter Details Date Type Department Care Team (Late st Contact Info) Description 03/20/2019 Telephone [facility] Family & Internal Medicine [facility] [address] [place] [address] Keyonna Armstrong APNP [address] [place] [address] Lab Results Social History Tobacco [...] CDT Gender Identity Female 07/17/2022 10:27 AM RAMPMAN Sexual Orientation Straight 07/17/2022 10 :27 AM RAMPMAN documented as of this encounter Progress Notes * Nenita Young MA - 03/20/2019 1:14 PM CDT Patient notified -sjs * Mariluz Tariq MA - 03/20/2019 9:44 AM CDT LMTC 03-20-19 * Mariluz Tariq MA - 03/20/2019 9:44 AM CDT ----- Message from YOBANI Cruz sent at 03/20/2019 9:06 AM CDT ----- Let her know CBC improving. documented in this encounter Plan of Treatment Upcoming Encounters Date Type Department Care Team (Late st Contact Info) Description 07/25/2024 10:00 AM RAMPMAN Office Visit [facility] Family & Internal Medicine - [place] [id number] [place] [address] Keyonna Armstrong APNP [facility] [place] [address] 07/31/2024 10:15 AM RAMPMAN Office [facility] [address] [place], [place] [address] Pepe Mitchell MD Three [facility]. [facility] [address] [place], [place] [address] documented as of this encounter Visit Diagnoses Not on filedocumented in this encounter Additional Health Concerns Assessment Noted Time PHQ-9 Depression Total Score: 12 019 9:59 AM CDT documented as of this encounter Care Teams Edging Supervisor Relationship Specialty Start Date End Date Keyonna Armstrong APNP [address] [place] [address] PCP - General NURSE PRACTITIONER 05/06/18 documented as of this encounter
--- OUTSIDE RECORDS SUMMARY | 2024-07-10 23:00 | XMS_ITS | Encounter Summary ---
Author Organization [facility] Address [facility]. [place], [place] [address] [place] [address] Care Team Providers Care Tack Picker Name Role Phone Keyonna Armstrong Primary Care Provider [phone] Reason for Referral * Consultation (Routine) - Closed Specialty Diagnoses / Procedures Referred By Contac t Referred To Contact HEMATOLOGY/ONCOLOGY Diagnoses Abnormal platelets ([facility]/HCC [facility]/HCC) Neutrophilia Keyonna Armstrong APNP [address] [place] [address] Phone: tel: fax: Brendan Lopez MD [address] [facility] [address] [place] [phone] Phone: tel: fax: Referral ID Status Reason Start Date Expiration Date V isits Requested Visits Authorized [id number] Closed Specialty Services 05/21/2019 11/17/2019 6 6 Reason for Visit * Reason Onset Date Comments Lab Results 04/28/2019 Encounter Details Date Type Department Care Team (Late st Contact Info) Description 04/28/2019 Telephone [facility] Family & Internal Medicine - [place] [address] [place] [address] Keyonna Armstrong APNP [address] [place] [address] Lab Results Social History Tobacco [...] CDT Gender Identity Female 07/17/2022 10:27 AM PM HEAD COOK Sexual Orientation Straight 07/17/2022 10 :27 AM PM HEAD COOK documented as of this encounter Progress Notes * Sherlyn Omalley RN - 04/28/2019 10:56 AM CDT Spoke to patient; verbalized understanding. Referral sent. * Sherlyn Omalley RN - 04/28/2019 10:01 AM CDT ----- Message from YOBANI Cruz sent at 04/27/2019 9:03 AM CDT ----- Let pt know not sure why CBC remains abnormal----please refer to Hem/Onc for further eval. Dx--elevated platelets and neutrophilia documented in this encounter Plan of Treatment Upcoming Encounters Date Type Department Care Team (Late st Contact Info) Description 07/25/2024 10:00 AM PM HEAD COOK Office Visit [facility] Medical Group Family & Internal Medicine - [place] [address] [place] [address] Keyonna Armstrong APNP [address] [place] [address] 07/31/2024 10:15 AM PM HEAD COOK Office Visit [facility], [address] [address] Pepe Mitchell MD [place] [id number] [place] [address] Scheduled Referrals Name Type Priority Associated Diagnoses Orde r Schedule Ambulatory referral to Hematology/Oncology (OTHER) Referral Routine Abnormal platelets ([facility]) Neutrophilia Ordered: 04/28/2019 documented as of this encounter Visit Diagnoses Diagnosis 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
--- OUTSIDE RECORDS SUMMARY | 2024-07-10 23:00 | XMS_ITS | Encounter Summary ---
Author Organization [facility] Address [address] [place] [address]. [place], [place] [address] [place] [address] Care Team Providers Care Trouble Dispatcher Name Role Phone Keyonna Armstrong Primary Care Provider [phone] [phone] Encounter Details Date Type Department Care Team (Latest Contact Info) Description 08/26/2019 Scan HEALTH INFO SRVCS Scanned, Documents Social [...] CDT Gender Identity Female 07/17/2022 10:27 AM ARCHITECTURE TECHNICIAN Sexual Orientation Straight 07/17/2022 10 :27 AM ARCHITECTURE TECHNICIAN documented as of this encounter Plan of Treatment Upcoming Encounters Date Type Department Care Team (Late st Contact Info) Description 07/25/2024 10:00 AM ARCHITECTURE TECHNICIAN Office Visit [facility] Medical [facility] Family & Internal Medicine - [place] [address] [place] [address] Keyonna Armstrong APNP [address] [place] [address] 07/31/2024 10:15 AM ARCHITECTURE TECHNICIAN Office Visit [facility], [place] [address] [place] [address] Pepe Mitchell MD Three [facility]. [place] [address] [place] [address] documented as of this encounter Visit Diagnoses Not on filedocumented in this encounter Additional Health Concerns Assessment Noted Time PHQ-9 Depression Total Score: 22 020 3:46 PM ARCHITECTURE TECHNICIAN documented as of this encounter Care Teams Trouble Dispatcher Relationship Specialty Start Date End Date Keyonna Armstrong APNP [address] [place] [address] PCP - General NURSE PRACTITIONER 05/06/18 documented as of this encounter
--- OUTSIDE RECORDS SUMMARY | 2024-07-10 23:00 | XMS_ITS | Encounter Summary ---
Author Organization [facility] Address [address] [place] [address]. [place] [address] Care Team Providers Care Narcotics Detective Name Role Phone Keyonna Armstrong Primary Care Provider [phone] Reason for Visit * Reason Onset Date Comments Question 12/26/2018 Rexulti and lab results Encounter Details Date Type Department Care Team (Late st Contact Info) Description 12/26/2018 Telephone [facility] Medical [facility] Family & Internal Medicine [facility] [address] [place] [address] Keyonna Armstrong APNP [address] [place] [address] Question (Rexulti and lab results) Social History Tobacco Use Types Packs/Day Years [...] CDT Gender Identity Female 07/17/2022 10:27 AM FOUNDER AND CHIEF EXECUTIVE OFFICER Sexual Orientation Straight 07/17/2022 10 :27 AM FOUNDER AND CHIEF EXECUTIVE OFFICER documented as of this encounter Progress Notes * YOBANI Cruz - 12/27/2018 12:38 PM CDT Lab results discussed with pt. WBC sl elevated. Pt denies any si/sy infection. Labs otherwise unremarkable. Pt will be started on Rexulti. Advised in detail of risks, benefits and side effects of meds. She is scheduled to see me kn January 18. Will recheck CBC at that time. * Marcella Alvarenga MA - 12/26/2018 12:29 PM CDT Lm that we will inform pt tomorrow. Also what about the rexulti rx? Do you want me to send something in for pt? I need the dose and sig? * YOBANI Cruz - 12/26/2018 12:02 PM CDT Please let her know I did not get the results until yesterday afternoont after office closed. Will let her know tomorrow. * Rachel Urena RRT - 12/26/2018 10:51 AM CDT Pt was in office on 12/24/18 and had blood work done and was told yesterday she would hear about results by the end of the day yesterday. I explained the Keyonna is not in office on and will be addressed tomorrow. Patient also states she was to get a new med called in, Rexulti, to [facility]. documented in this encounter Plan of Treatment Upcoming Encounters Date Type Department Care Team (Late st Contact Info) Description 07/25/2024 10:00 AM FOUNDER AND CHIEF EXECUTIVE OFFICER Office Visit [facility] Medical Group Family & Internal Medicine - [address] [address] Keyonna Armstrong APNP [address] [place] [address] 07/31/2024 10:15 AM FOUNDER AND CHIEF EXECUTIVE OFFICER Office Visit [facility] THREE [facility], [facility] [address] [place] [address] Pepe Mitchell MD Three [facility]. [place] [address] [place] [address] documented as of this encounter Visit Diagnoses Diagnosis Recurrent major depressive disorder, in partial remission (CMS/HCC)- Primary documented in this encounter Additional Health Concerns Assessment Noted Time PHQ-9 Depression Total Score: 23 019 9:51 AM CDT documented as of this encounter Care Teams Narcotics Detective Relationship Specialty Start Date End Date Keyonna Armstrong APNP [address] [place] [address] PCP - General NURSE PRACTITIONER 05/06/18 documented as of this encounter
--- OUTSIDE RECORDS SUMMARY | 2024-07-10 23:00 | XMS_ITS | Encounter Summary ---
Author Organization [facility] Address [address] [place] [address]. [place], [place] [address] [place] [address] Care Team Providers Care Shoe Sprayer Name Role Phone Keyonna Armstrong Primary Care Provider [phone] Reason for Visit * Reason Onset Date Comments Question 08/25/2019 Encounter Details Date Type Department Care Team (Late st Contact Info) Description 08/25/2019 Telephone [facility] Medical [facility] Multispecialty Care - [facility] [address] [facility] [address] [place] [address] Burt Payne MD 3 [facility] [place] [address] [place], [place] [phone] Question Social History Tobacco Use Types Packs/Day [...] CDT Gender Identity Female 07/17/2022 10:27 AM BEHAVIORAL HEALTH CLINICIAN Sexual Orientation Straight 07/17/2022 10 :27 AM BEHAVIORAL HEALTH CLINICIAN documented as of this encounter Progress Notes * Vernell Masters - 08/25/2019 3:00 PM CST Left a voicemail message for pt to give the office a call. She is scheduled for an appt with Dr. Payne on 08/28. CINEMA OPERATOR Kendal can see her that morning if she would like. VIORAL HEALTH CLINICIAN documented in this encounter Plan of Treatment Upcoming Encounters Date Type Department Care Team (Late st Contact Info) Description 07/25/2024 10:00 AM BEHAVIORAL HEALTH CLINICIAN Office Visit [facility] Medical Group Family & Internal Medicine - [place] [address] [place] [address] Keyonna Armstrong APNP [address] [place] [address] 07/31/2024 10:15 AM BEHAVIORAL HEALTH CLINICIAN Office Visit [facility] [address] [place] [address] Pepe Mitchell MD Three [facility]. [email or web address] [address] [place] [address] documented as of this encounter Visit Diagnoses Not on filedocumented in this encounter Additional Health Concerns Assessment Noted Time PHQ-9 Depression Total Score: 22 020 3:46 PM BEHAVIORAL HEALTH CLINICIAN documented as of this encounter Care Teams Shoe Sprayer Relationship Specialty Start Date End Date Keyonna Armstrong APNP [address] [place] [address] PCP - General NURSE PRACTITIONER 05/06/18 documented as of this encounter
--- OUTSIDE RECORDS SUMMARY | 2024-07-10 23:00 | XMS_ITS | Encounter Summary ---
Author Organization [facility] Address [address] [place] [address]. [place], [place] [address] [place] [address] Care Team Providers Care Soda Room Operator Name Role Phone Keyonna Armstrong Primary Care Provider [phone] [phone] Encounter Details Date Type Department Care Team (Latest Contact Info) Description 03/17/2019 Scan HEALTH INFO SRVCS Scanned, Documents Social [...] CDT Gender Identity Female 07/17/2022 10:27 AM GARDE MANGER Sexual Orientation Straight 07/17/2022 10 :27 AM GARDE MANGER documented as of this encounter Plan of Treatment Upcoming Encounters Date Type Department Care Team (Late st Contact Info) Description 07/25/2024 10:00 AM GARDE MANGER Office Visit [facility] Medical [facility] Family & Internal Medicine - [place] [address] [place] [address] Keyonna Armstrong APNP [address] [place] [address] 07/31/2024 10:15 AM GARDE MANGER Office Visit [facility], [place] [address] [place] [address] Pepe Mitchell MD Three [facility]. [place] [address] [place] [address] documented as of this encounter Visit Diagnoses Not on filedocumented in this encounter Additional Health Concerns Assessment Noted Time PHQ-9 Depression Total Score: 12 019 9:59 AM CDT documented as of this encounter Care Teams Soda Room Operator Relationship Specialty Start Date End Date Keyonna Armstrong APNP [address] [place] [address] PCP - General NURSE PRACTITIONER 05/06/18 documented as of this encounter
--- OUTSIDE RECORDS SUMMARY | 2024-07-10 23:00 | XMS_ITS | Encounter Summary ---
Author Organization [facility] Address [address] [place] [address]. [place] [id number] [place] [address] Care Team Providers Care Electrical Inspector Name Role Phone Keyonna Armstrong Primary Care Provider [phone] Reason for Visit * Reason Comments Follow Up Encounter Details Date Type Department Care Team (Late st Contact Info) Description 02/04/2019 10:20 AM CDT Office Visit [facility] Medical Group Family & Internal Medicine [facility] [address] [place] [phone] Keyonna Armstrong APNP [address] [place], [place] [phone] Follow Up Social History Tobacco Use Types Packs/Day Years [...] Gender Identity Female 07/17/2022 10:27 AM CLINICAL RESOURCE DIRECTOR Sexual Orientation Straight 07/17/2022 10 :27 AM CLINICAL RESOURCE DIRECTOR documented as of this encounter Last Filed Vital Signs Vital Sign Reading Time Taken Comments Blood Pressure 129/77 02/04/2019 10:39 AM CDT Pulse 85 02/04/2019 10:39 AM CDT Temperature 36.5 ??C (97.7 ??F) 02/04/2019 10:39 AM C DT Respiratory Rate 16 02/04/2019 10:39 AM CDT Oxygen Saturation 98% 02/04/2019 10:39 AM CDT Inhaled Oxygen Concentration - - Weight 135.2 kg (298 lb) 02/04/2019 10:39 AM CDT Height 162.6 cm (5' 4) 02/04/2019 10:39 AM CDT Body Mass Index 51.15 02/04/2019 10:39 AM CDT documented in this encounter Progress Notes * YOBANI Cruz - 02/04/2019 10:20 AM CDT Images from the original note were not included. [facility] FAMILY [facility] INTERNAL MEDICINE OFFICE VISIT Reason for Visit: Follow Up History of Present Illness: Pt here today for follow up on her depression. She was started on Rexulti. States symptoms have improved, but not completely resolved. Tolerates this medication well and denies any bothersome side effects. Is willing to increase dose once more if possible. Denies any HI/SI. CBC and metabolic panel were checked and will be reviewed today. Labs were checked last week and CMP WNL. CBC---WBC, lymphocytes sl elevated Denies any si/sy infection. She does have some fatigue, but states this is not new. Plan to rechecktoday. She would like to discuss Contrave or other weight loss med if possible. She states she is startingto feel a little better and therefore wants to be more social and her appetite has increased. Patient states she tries to exercise but feels too tired most of the day. She has had bariatric surgery in the past which was the most part not successful. She tries to watch her diet, but feels like she overeats most days. ROS: Review of Systems Constitutional: Negative for [...] for suicidal ideas. The patient is nervous/anxious. The patient does not have insomnia. Medications: Current Outpatient Medications: ??? amlodipine 5 MG tablet, Take 1 tablet (5 mg total) by mouth daily., Disp: 90 tablet, Rfl: 1 ??? brexpiprazole (REXULTI) 1 MG tablet, Take 1 tablet (1 mg total) by mouth daily., Disp: 30 tablet, Rfl: 2 ??? hydrochlorothiazide 25 MG tablet, Take 1 tablet (25 mg total) by mouth daily., Disp: 90 tablet,Rfl: 1 ??? IBUPROFEN 800 MG tablet, TAKE 1 TABLET BY MOUTH EVERY 6 HOURS NEEDED FOR PAIN., Disp: 90 tablet, Rfl: 1 ??? levonorgestrel-ethinyl estradiol (ENPRESSE-28) tablet, Take 1 tablet by mouth daily., Disp: 84 tablet, Rfl: 0 ??? liraglutide, Weight Management, (SAXENDA) 18 MG/3ML injection, Inject 0.1- 0.5 mLs (0.6-3 mg total) into the skin daily. Start With: 0.6 mg (0.1 mL) SC once daily x7 days, then 1.2 mg (0.2 mL) SC once daily x7 days, then 1.8 mg (0.3 mL) SC once daily x 7 days, then 2.4 mg (0.4 mL) SC once daily x 7 days, then 3 mg (0.5 mL) SC once daily., Disp: 5 pen, Rfl: 3 ??? lisinopril 40 MG tablet, Take 1 tablet (40 mg total) by mouth daily., Disp: 90 tablet, Rfl: 3 ??? lorazepam 0.5 MG tablet, TAKE 1 TABLET BY MOUTH THREE TIMES A DAY NEEDED, Disp: 90 tablet, Rfl: 0 ??? METFORMIN 500 MG tablet, TAKE 1 TABLET BY MOUTH EVERY MORNING AND THEN TAKE 2 TABLETS AT BEDTIME, Disp: 270 tablet, Rfl: 0 ??? methocarbamol 750 MG Tab, Take 1-2 tablets by mouth 3 (three) times daily as needed., Disp: , Rfl: ??? metoprolol succinate 100 MG 24 hr tablet, Take 1 tablet (100 mg total) by mouth daily., Disp: 90 tablet, Rfl: 1 ??? ondansetron 4 MG tablet, TAKE 1 TABLET BY MOUTH EVERY 6 HOURS NEEDED FOR NAUSEA/VOMITING, Disp: , Rfl: 1 ??? pantoprazole 40 MG tablet, Take 1 tablet (40 mg total) by mouth daily., Disp: 90 tablet, Rfl: 3 ??? venlafaxine XR 75 MG 24 hr capsule, Take 1 capsule (75 mg total) by mouth daily. (Patient taking differently: Take 75 mg by mouth 3 (three) times daily. ), Disp: 270 capsule, Rfl: 1 ??? zolpidem 10 MG tablet, Take 1 tablet (10 mg total) by mouth nightly at bedtime. at bedtime., Disp: 30 tablet, Rfl: 1 Allergies: No Known Allergies Medical [...] file Gets together: Not on file Attends amish service: Not on file Active member of [...] and well-developed, well-nourished, and in no distress. No distress. HENT: Head: Normocephalic and atraumatic. Mouth/Throat: No oropharyngeal exudate. Eyes: Conjunctivae and EOM are normal. No [...] is warm and dry. No rash noted. She is not diaphoretic. No erythema. No pallor. Psychiatric: Mood and affect normal. Nursing note and vitals reviewed. Filed Vitals: 02/04/19 1039 BP: 129/77 Pulse: 85 Resp: 16 Temp: 97.7 ??F (36.5 ??C) SpO2: 98% Weight: 135.2 kg (298 lb) Height: 5' 4 (1.626 m) Labs: Labs Reviewed Diagnoses/Impression: 1. Anxiety Chronic 2. Recurrent major depressive disorder, in partial remission (CMS/HCC) brexpiprazole (REXULTI) 1 MGtablet Chronic 3. BMI 50.0-59.9, adult (CMS/HCC) liraglutide, Weight Management, (SAXENDA) 18 MG/3ML injection 4. Abnormal CBC CBC W/DIFF AUTOMATED VENIPUNC ARM DRAW Recommendations and Plan: 1. Anxiety Stable. Continue meds. 2. Recurrent major depressive disorder, in partial remission (CMS/HCC) - brexpiprazole (REXULTI) 1 MG tablet; Take 1 tablet (1 mg total) by mouth daily. Dispense: 30 tablet; Refill: 2 Patient is improving. Rexulti dose increased to 1 mg and refilled today. We will see patient back in 1 month for follow-up. 3. BMI 50.0-59.9, adult (CMS/HCC) - liraglutide, Weight Management, (SAXENDA) 18 MG/3ML injection; Inject 0.1-0.5 mLs (0.6-3 mg total) into the skin daily. Start With: 0.6 mg (0.1 mL) SC once daily x7 days, then 1.2 mg (0.2 mL) SC once daily x7 days, then 1.8 mg (0.3 mL) SC once daily x 7 days, then 2.4 mg (0.4 mL) SC once daily x 7 days, then 3 mg (0.5 mL) SC once daily. Dispense: 5 pen; Refill: 3 Weight loss medications discussed today. Patient opted for Saxenda. Did discuss with patient that this would likely not be covered under her insurance but will try. Therapeutic lifestyle changes and dietary changes conducive to weight loss were discussed in detail with patient today. Daily exerciseencouraged. We will continue to monitor this. Short and long-term effects of obesity discussed in de tail with patient today. Patient verbalized understanding. 4. Abnormal CBC - CBC W/DIFF AUTOMATED; Future - CBC W/DIFF AUTOMATED - VENIPUNC ARM DRAW Unsure of exact cause of patient's abnormal CBC. Plan to recheck. More plan after results. Orders Placed This Encounter ??? VENIPUNC ARM DRAW ??? CBC W/DIFF AUTOMATED ??? liraglutide, Weight Management, (SAXENDA) 18 MG/3ML injection ??? brexpiprazole (REXULTI) 1 MG tablet Cannot display discharge medications since this is not an admission. PCP: YOBANI Cruz 02/04/2019 * YOBANI Cruz - 02/04/2019 10:20 AM CDT Let pt know her CBC was stable. WBC still a little elevated. Will recheck CBC at her next one monthfollow up. documented in this encounter Plan of Treatment Upcoming Encounters Date Type Department Care Team (Late st Contact Info) Description 07/25/2024 10:00 AM CLINICAL RESOURCE DIRECTOR Office Visit [facility] Medical Group Family & Internal Medicine - [place] [address] [place] [address] Keyonna Armstrong APNP [address] [place] [address] 07/31/2024 10:15 AM CLINICAL RESOURCE DIRECTOR Office Visit [facility] [address] [place], [place] [phone] Pepe Mitchell MD Three [facility]. [facility] [address] [place], [place] [id number] documented as of this encounter Procedures Procedure Name Priority Date/Time Associated Diagnosis Comments VENIPUNC ARM DRAW Routine 02/04/2019 11: 28 AM CDT Abnormal CBC CBC W/DIFF AUTOMATED Routine 02/04/2019 11:19 AM CDT Abnormal CBC documented in this encounter Results * (ABNORMAL) CBC W/DIFF AUTOMATED (02/04/2019 11:19 AM CDT) WBC 13.0(H) 3.8 - 10.8 Thousand/ uL [facility] RBC 4.51 3.80 - 5.10 Million/u L [facility] HGB 12.8 11.7 - 15.5 g/dL [facility] HCT 39.0 35.0 - 45.0 % [facility] MCV 86.5 80.0 - 100.0 fL [facility] MCH (QHPE) 28.4 27.0 - 33.0 pg [facility] MCHC 32.8 32.0 - 36.0 g/dL [facility] RDW (QHPE) 14.8 11.0 - 15.0 % [facility] PLT 365 140 - 400 Thousand/ uL [facility] MPV 10.4 7.5 - 12.5 fL [facility] ABS. NEUTROPHILS 8,307(H) 1,500 - 7,800 cells/uL [facility] ABS. LYMPHOCYTES 3,328 850 - 3,900 cells/uL [facility] ABS. MONOCYTES 1,144(H) 200 - 950 cells/uL [facility] ABS. EOSINOPHILS 156 15 - 500 cells/uL [facility] ABS. BASOPHILS 65 0 - 200 cells/uL [facility] SEG NEUTROPHILS 63.9 % [facility] LYMPHOCYTES 25.6 % [facility] MONOCYTES 8.8 % [facility] EOSINOPHILS 1.2 % [facility] BASOPHILS 0.5 % [facility] 02/04/2019 11:1 9 AM CDT 02/05/2019 2:55 AM CDT Narrative Resulting Agency Comment Performing Organization Information: ?Site ID: [id number] ?Name: [facility] ?Address: [address] [place] [address] ?Director: Servando Cervantes D.O., MPH Keyonna [facility] Edited Resu lt - Final [facility] documented in this encounter Visit Diagnoses Diagnosis Anxiety- Primary Anxiety state, unspecified Recurrent major depressive disorder, in partial remission ([facility]) BMI 50.0-59.9, adult ([facility]) Body Mass Index 50.0-59.9, adult Abnormal CBC Other abnormal blood chemistry documented in this encounter Additional Health Concerns Assessment Noted Time PHQ-9 Depression Total Score: 12 019 9:59 AM CDT documented as of this encounter Care Teams Electrical Inspector Relationship Specialty Start Date End Date Keyonna Armstrong APNP [address] [place] [address] PCP - General NURSE PRACTITIONER 10/15/18 documented as of this encounter
--- OUTSIDE RECORDS SUMMARY | 2024-07-10 23:00 | XMS_ITS | Encounter Summary ---
Author Organization [facility] Address [address] [place] [address]. [place], [place] [address] [place] [address] Care Team Providers Care Hot Baller Name Role Phone Keyonna Armstrong Primary Care Provider +1 [phone] Encounter Details Date Type Department Care Team (Latest Contact Info) Description 04/22/2019 Scan HEALTH INFO SRVCS Scanned, Documents Social [...] CDT Gender Identity Female 07/17/2022 10:27 AM ASSOCIATE DIRECTOR OF BIOSTATISTICS Sexual Orientation Straight 07/17/2022 10 :27 AM ASSOCIATE DIRECTOR OF BIOSTATISTICS documented as of this encounter Plan of Treatment Upcoming Encounters Date Type Department Care Team (Late st Contact Info) Description 07/25/2024 10:00 AM ASSOCIATE DIRECTOR OF BIOSTATISTICS Office Visit [facility] Medical [facility] Family & Internal Medicine - [place] [address] [place] [address] Keyonna Armstrong APNP [address] [place] [address] 07/31/2024 10:15 AM ASSOCIATE DIRECTOR OF BIOSTATISTICS Office Visit [facility] [place] [address] [place] [address] Pepe Mitchell MD Three [facility]. [place] [address] [place] [address] documented as of this encounter Visit Diagnoses Not on filedocumented in this encounter Additional Health Concerns Assessment Noted Time PHQ-9 Depression Total Score: 12 019 9:59 AM CDT documented as of this encounter Care Teams Hot Baller Relationship Specialty Start Date End Date Keyonna Armstrong APNP [address] [place] [address] PCP - General NURSE PRACTITIONER 05/06/18 documented as of this encounter
--- OUTSIDE RECORDS SUMMARY | 2024-07-10 23:00 | XMS_ITS | Encounter Summary ---
Author Organization [facility] Address [address] [place] [address]. [place] [id number] [place] [address] Care Team Providers Care Employee Placement Specialist Name Role Phone Keyonna Armstrong Primary Care Provider +1 [phone] Reason for Visit * Reason Onset Date Comments Refill Request 05/12/2019 Encounter Details Date Type Department Care Team (Late st Contact Info) Description 05/12/2019 Telephone [facility] Medical Group Family & Internal Medicine [facility] [address] [place] [address] Keyonna Armstrong APNP [address] [place], [place] [phone] Refill Request Social History Tobacco Use Types [...] CDT Gender Identity Female 07/17/2022 10:27 AM AFFIRMATIVE ACTION SPECIALIST Sexual Orientation Straight 07/17/2022 10 :27 AM AFFIRMATIVE ACTION SPECIALIST documented as of this encounter Progress Notes * YOBANI Cruz - 05/12/2019 5:12 PM CDT These were sent in. * Lupe Dorado - 05/12/2019 3:01 PM CDT Patient would like a call back whenever this is sent in. * Lupe Dorado - 05/12/2019 2:59 PM CDT Patient came in stating that she has been out of her medications since last week. It was refused last week because it was too earlier so it was supposed to be called in today. She is asking when thiswill get sent in? She is also needing her lorazepam sent in. * Flora Blackwell MA - 05/12/2019 12:02 PM CDT Patient is requesting zolpidem and lorazepam. [facility] Patient states she has been out of these since 05/09/19. It does not look like they have been discontinued. documented in this encounter Plan of Treatment Upcoming Encounters Date Type Department Care Team (Late st Contact Info) Description 07/25/2024 10:00 AM AFFIRMATIVE ACTION SPECIALIST Office Visit [facility] Medical Group Family & Internal Medicine - [place] [address] [place] [address] Keyonna Armstrong APNP [address] [place] [address] 07/31/2024 10:15 AM AFFIRMATIVE ACTION SPECIALIST Office Visit [facility], [place] [address] [place], [place] [phone] Pepe Mitchell MD Three [facility]. [place] [address] [place], [place] [address] documented as of this encounter Visit Diagnoses Diagnosis Anxiety Anxiety state, unspecified documented in this encounter Additional Health Concerns Assessment Noted Time PHQ-9 Depression Total Score: 12 019 9:59 AM CDT documented as of this encounter Care Teams Employee Placement Specialist Relationship Specialty Start Date End Date Keyonna Armstrong APNP [address] [place] [address] PCP - General NURSE PRACTITIONER 05/06/18 documented as of this encounter
--- OUTSIDE RECORDS SUMMARY | 2024-07-10 23:00 | XMS_ITS | Encounter Summary ---
Author Organization [facility] Address [address] [place] [address]. [place], [place] [address] [place] [address] Care Team Providers Care Mechanical Oxidizer Name Role Phone Keyonna Armstrong Primary Care Provider +1 [phone] Encounter Details Date Type Department Care Team (Latest Contact Info) Description 12/31/2018 Scan HEALTH INFO SRVCS Scanned, Documents Social [...] CDT Gender Identity Female 07/17/2022 10:27 AM PEANUT SHAKER Sexual Orientation Straight 07/17/2022 10 :27 AM PEANUT SHAKER documented as of this encounter Plan of Treatment Upcoming Encounters Date Type Department Care Team (Late st Contact Info) Description 07/25/2024 10:00 AM PEANUT SHAKER Office Visit [facility] Medical Group Family & Internal Medicine - [place] [address] [place] [address] Keyonna Armstrong APNP [address] [place] [address] 07/31/2024 10:15 AM PEANUT SHAKER [facility] [address] [address] Pepe Mitchell MD Three [facility]. [facility] [address] [place] [address] documented as of this encounter Visit Diagnoses Not on filedocumented in this encounter Additional Health Concerns Assessment Noted Time PHQ-9 Depression Total Score: 23 019 9:51 AM CDT documented as of this encounter Care Teams Mechanical Oxidizer Relationship Specialty Start Date End Date Keyonna Armstrong APNP [address] [place] [address] PCP - General NURSE PRACTITIONER 05/06/18 documented as of this encounter
--- OUTSIDE RECORDS SUMMARY | 2024-07-10 23:00 | XMS_ITS | Encounter Summary ---
Author Organization [facility] Address [address] [place] [address]. [place], [place] [address] [place] [address] Care Team Providers Care Show Design Supervisor Name Role Phone Keyonna Armstrong Primary Care Provider +1 [phone] Encounter Details Date Type Department Care Team (Latest Contact Info) Description 01/27/2019 Scan HEALTH INFO SRVCS Scanned, Documents Social [...] CDT Gender Identity Female 07/17/2022 10:27 AM DEMOLITION HAMMER OPERATOR Sexual Orientation Straight 07/17/2022 10 :27 AM DEMOLITION HAMMER OPERATOR documented as of this encounter Plan of Treatment Upcoming Encounters Date Type Department Care Team (Late st Contact Info) Description 07/25/2024 10:00 AM DEMOLITION HAMMER OPERATOR Office Visit [facility] Medical Group Family & Internal Medicine - [place] [address] [place] [address] Keyonna Armstrong APNP [address] [place] [address] 07/31/2024 10:15 AM DEMOLITION HAMMER OPERATOR Office [facility] [address] [address] Pepe Mitchell MD Three [facility]. [facility] [address] [place] [address] documented as of this encounter Visit Diagnoses Not on filedocumented in this encounter Additional Health Concerns Assessment Noted Time PHQ-9 Depression Total Score: 12 019 9:59 AM CDT documented as of this encounter Care Teams Show Design Supervisor Relationship Specialty Start Date End Date Keyonna Armstrong APNP [address] [place] [address] PCP - General NURSE PRACTITIONER 05/06/18 documented as of this encounter
--- OUTSIDE RECORDS SUMMARY | 2024-07-10 23:00 | XMS_ITS | Encounter Summary ---
Author Organization [facility] Address [address] [place] [address]. [place], [place] [address] [place] [address] Care Team Providers Care Welder Gas Automatic Name Role Phone Keyonna Armstrong Primary Care Provider +1 [phone] Encounter Details Date Type Department Care Team [...] CDT Gender Identity Female 07/17/2022 10:27 AM ASPHALT PAVER OPERATOR Sexual Orientation Straight 07/17/2022 10 :27 AM ASPHALT PAVER OPERATOR documented as of this encounter Plan of Treatment Upcoming Encounters Date Type Department Care Team (Late st Contact Info) Description 07/25/2024 10:00 AM ASPHALT PAVER OPERATOR Office Visit [facility] Medical Group Family & Internal Medicine - [place] [address] [place] [address] Keyonna Armstrong APNP [address] [place] [address] 07/31/2024 10:15 AM ASPHALT PAVER OPERATOR Office Visit [facility] THREE [facility], [place] [address] [place] [address] Pepe Mitchell MD Three [facility]. [place] [address] [place] [address] documented as of this encounter Visit Diagnoses Not on filedocumented in this encounter Additional Health Concerns Assessment Noted Time PHQ-9 Depression Total Score: 12 019 9:59 AM CDT documented as of this encounter Care Teams Welder Gas Automatic Relationship Specialty Start Date End Date Keyonna Armstrong APNP [address] [place] [address] PCP - General NURSE PRACTITIONER 05/06/18 documented as of this encounter
--- OUTSIDE RECORDS SUMMARY | 2024-07-10 23:00 | XMS_ITS | Encounter Summary ---
Author Organization [facility] Address [address] [place] [address]. [place] [phone] [place], [place] [phone] Care Team Providers Care Neck Band Maker Name Role Phone Keyonna Armstrong Primary Care Provider [phone] Reason for Visit * Reason Onset Date Comments Medication Problem 02/17/2019 Encounter Details Date Type Department Care Team (Late st Contact Info) Description 02/17/2019 Telephone [facility] Medical Group Family & Internal Medicine [facility] [address] [place] [address] Keyonna Armstrong APNP [address] [place] [address] Medication Problem Social History Tobacco Use Types Packs/Day [...] CDT Gender Identity Female 07/17/2022 10:27 AM CLIMATOLOGIST Sexual Orientation Straight 07/17/2022 10 :27 AM CLIMATOLOGIST documented as of this encounter Progress Notes * YOBANI Cruz - 02/17/2019 12:51 PM CDT We can discuss another alternative at her follow up visit. * Rachel Urena RRT - 02/17/2019 9:51 AM CDT Pharmacy is asking for an alternative for Saxenda. It is not covered by part D. The discount card takes $200 off of the $1500 manley documented in this encounter Plan of Treatment Upcoming Encounters Date Type Department Care Team (Late st Contact Info) Description 07/25/2024 10:00 AM CLIMATOLOGIST Office Visit [facility] Medical Group Family & Internal Medicine - [place] [address] [place] [address] Keyonna Armstrong APNP [address] [place] [address] 07/31/2024 10:15 AM CLIMATOLOGIST Office Visit [facility] THREE [facility], [facility] [address] [place] [address] Pepe Mitchell MD Three [facility]. [facility] [address] [place] [address] documented as of this encounter Visit Diagnoses Not on filedocumented in this encounter Additional Health Concerns Assessment Noted Time PHQ-9 Depression Total Score: 12 019 9:59 AM CDT documented as of this encounter Care Teams Neck Band Maker Relationship Specialty Start Date End Date Keyonna Armstrong APNP [address] [place] [address] PCP - General NURSE PRACTITIONER 05/06/18 documented as of this encounter
--- OUTSIDE RECORDS SUMMARY | 2024-07-10 23:00 | XMS_ITS | Encounter Summary ---
Author Organization [facility] Address [address] [place] [address]. [place], [place] [address] [place] [address] Care Team Providers Care Ranch Cook Name Role Phone Keyonna Armstrong Primary Care Provider [phone] [phone] Reason for Visit * Reason Onset Date Comments Consult 08/07/2019 Encounter Details Date Type Department Care Team (Late st Contact Info) Description 08/07/2019 Telephone [facility] [place] [address] [facility] [address], [place] [address] [place], [place] [phone] Bairon Espinosa MD [address] [facility] [address] [place] [address] Consult Social History Tobacco Use Types Packs/Day [...] CDT Gender Identity Female 07/17/2022 10:27 AM COMBAT ENGINEER Sexual Orientation Straight 07/17/2022 10 :27 AM COMBAT ENGINEER documented as of this encounter Progress Notes * TINO Knowles - 08/07/2019 4:26 PM CST Left message on for patient to schedule cardiology consult per Keyonna Armstrong NP (x1) AT ENGINEER documented in this encounter Plan of Treatment Upcoming Encounters Date Type Department Care Team (Late st Contact Info) Description 07/25/2024 10:00 AM COMBAT ENGINEER Office Visit [facility] Medical Group Family & Internal Medicine - [place] [address] [place] [address] Keyonna Armstrong APNP [address] [place] [address] 07/31/2024 10:15 AM COMBAT ENGINEER Office Visit [facility] THREE [facility], [facility] [address] [place], [place] [phone] Pepe Mitchell MD Three [facility] [address] [place], [place] [phone] documented as of this encounter Visit Diagnoses Not on filedocumented in this encounter Additional Health Concerns Assessment Noted Time PHQ-9 Depression Total Score: 22 020 3:46 PM COMBAT ENGINEER documented as of this encounter Care Teams Ranch Cook Relationship Specialty Start Date End Date Keyonna Armstrong APNP [address] [place] [address] PCP - General NURSE PRACTITIONER 05/06/18 documented as of this encounter
--- OUTSIDE RECORDS SUMMARY | 2024-07-10 23:00 | XMS_ITS | Encounter Summary ---
Author Organization [facility] Address [address] [place] [address]. [place], [place] [address] [place] [address] Care Team Providers Care Bath Tester Name Role Phone Keyonna Armstrong Primary Care Provider [phone] Reason for Visit * Reason Onset Date Comments Sleep Problem 04/14/2019 Encounter Details Date Type Department Care Team (Late st Contact Info) Description 04/14/2019 Telephone [facility] Medical Group Family & Internal Medicine [facility] [address] [place] [address] Keyonna Armstrong APNP [address] [place] [address] Sleep Problem Social History Tobacco [...] CDT Gender Identity Female 07/17/2022 10:27 AM BALE BREAKER OPERATOR Sexual Orientation Straight 07/17/2022 10 :27 AM BALE BREAKER OPERATOR documented as of this encounter Progress Notes * Sherlyn Omalley RN - 04/14/2019 11:45 AM CDT Spoke to patient; verbalized understanding. * YOBANI Cruz - 04/14/2019 11:09 AM CDT Since this is controlled---would rather discuss this in person * Nenita Young MA - 04/14/2019 9:35 AM CDT Patient states that cale is no longer working and she hasnt slept in days. Patient states she hasseen advertisements for Bels[employer] and she would like to try it. Please advise [facility] in on [employer] Cb#[phone] documented in this encounter Plan of Treatment Upcoming Encounters Date Type Department Care Team (Late st Contact Info) Description 07/25/2024 10:00 AM BALE BREAKER OPERATOR Office Visit [facility] Medical Group Family & Internal Medicine - [place] [address] [place] [address] Keyonna Armstrong APNP [address] [place] [address] 07/31/2024 10:15 AM BALE BREAKER OPERATOR Office Visit [facility] THREE [facility] [address] [place], [place] [address] Pepe Mitchell MD [facility]. [facility] [address] [place] [address] documented as of this encounter Visit Diagnoses Not on filedocumented in this encounter Additional Health Concerns Assessment Noted Time PHQ-9 Depression Total Score: 12 01/14/ 019 9:59 AM CDT documented as of this encounter Care Teams Bath Tester Relationship Specialty Start Date End Date Keyonna Armstrong APNP [address] [place] [address] PCP - General NURSE PRACTITIONER 05/06/18 documented as of this encounter
--- OUTSIDE RECORDS SUMMARY | 2024-07-10 23:00 | XMS_ITS | Encounter Summary ---
Author Organization [facility] Address [address] [place] [address]. [place], [place] [address] [place] [address] Care Team Providers Care Courtesy Booth Cashier Name Role Phone Keyonna Armstrong Primary Care Provider [phone] [phone] Encounter Details Date Type Department Care Team (Late st Contact Info) Description 03/17/2019 2:00 PM CDT Laboratory Only [facility] Family & Internal Medicine [address] [phone] Social History Tobacco Use Types Packs/Day Years [...] CDT Gender Identity Female 07/17/2022 10:27 AM GENERAL MERCHANDISE MANAGER Sexual Orientation Straight 07/17/2022 10 :27 AM GENERAL MERCHANDISE MANAGER documented as of this encounter Plan of Treatment Upcoming Encounters Date Type Department Care Team (Late st Contact Info) Description 07/25/2024 10:00 AM GENERAL MERCHANDISE MANAGER Office Visit [facility] Family & Internal [address] [phone] Keyonna Armstrong APNP [address] [place] [address] 07/31/2024 10:15 AM GENERAL MERCHANDISE MANAGER Office Visit [facility] [place] [address] [place] [address] Pepe Mitchell MD Three [facility]. [facility] [address] [place] [address] documented as of this encounter Procedures Procedure Name Priority Date/Time Associated Diagnosis Comments VENIPUNC ARM DRAW Routine 03/17/2019 2:05 PM CDT Abnormal CBC documented in this encounter Visit Diagnoses Diagnosis Abnormal CBC- Primary Other abnormal blood chemistry documented in this encounter Additional Health Concerns Assessment Noted Time PHQ-9 Depression Total Score: 12 019 9:59 AM CDT documented as of this encounter Care Teams Courtesy Booth Cashier Relationship Specialty Start Date End Date Keyonna Armstrong APNP [address] [place] [address] PCP - General NURSE PRACTITIONER 05/06/18 documented as of this encounter
--- OUTSIDE RECORDS SUMMARY | 2024-07-10 23:00 | XMS_ITS | Encounter Summary ---
Author Organization [facility] Address [address] [place] [address]. [place] [phone] [place] [address] Care Team Providers Care Wound/Ostomy Nurse Name Role Phone Keyonna Armstrong Primary Care Provider [phone] Reason for Visit * Reason Onset Date Comments Follow Up Call 12/11/2018 Encounter Details Date Type Department Care Team (Late st Contact Info) Description 12/11/2018 Telephone [facility] Family & Internal [address] [address] Keyonna Armstrong APNP [address] [place], [place] [phone] Follow Up Call Social History Tobacco Use [...] CDT Gender Identity Female 07/17/2022 10:27 AM PLYWOOD LAYUP LINE CORE FEEDER Sexual Orientation Straight 07/17/2022 10 :27 AM PLYWOOD LAYUP LINE CORE FEEDER documented as of this encounter Plan of Treatment Upcoming Encounters Date Type Department Care Team (Late st Contact Info) Description 07/25/2024 10:00 AM PLYWOOD LAYUP LINE CORE FEEDER Office Visit [facility] Family & Internal [address] [address] Keyonna Armstrong APNP [address] [place] [address] 07/31/2024 10:15 AM PLYWOOD LAYUP LINE CORE FEEDER Office Visit [facility] THREE [facility] [address] [place] [address] Pepe Mitchell MD Three [facility]. [facility] [address] [place] [address] documented as of this encounter Visit Diagnoses Not on filedocumented in this encounter Care Teams Wound/Ostomy Nurse Relationship Specialty Start Date End Date Keyonna Armstrong APNP [address] [place] [address] PCP - General NURSE PRACTITIONER 05/06/18 documented as of this encounter
--- OUTSIDE RECORDS SUMMARY | 2024-07-10 23:00 | XMS_ITS | Encounter Summary ---
Author Organization [facility] Address [address] [place] [address]. [place], [place] [address] [place] [address] Care Team Providers Care Ship Rigger Name Role Phone Keyonna Armstrong Primary Care Provider [phone] Encounter Details Date Type Department Care Team [...] Gender Identity Female 07/17/2022 10:27 AM DIRECTOR OF FINANCIAL AID Sexual Orientation Straight 07/17/2022 10 :27 AM DIRECTOR OF FINANCIAL AID documented as of this encounter Plan of Treatment Upcoming Encounters Date Type Department Care Team (Late st Contact Info) Description 07/25/2024 10:00 AM DIRECTOR OF FINANCIAL AID Office [facility] Medical Group Family & Internal Medicine - [place] [address] [place] [address] Keyonna Armstrong APNP [address] [place] [address] 07/31/2024 10:15 AM DIRECTOR OF FINANCIAL AID Office Visit [facility] [address] [address] Pepe Mitchell MD Three [facility]. [facility] [address] [place] [address] documented as of this encounter Visit Diagnoses Not on filedocumented in this encounter Additional Health Concerns Assessment Noted Time PHQ-9 Depression Total Score: 12 019 9:59 AM CDT documented as of this encounter Care Teams Ship Rigger Relationship Specialty Start Date End Date Keyonna Armstrong APNP [address] [place] [address] PCP - General NURSE PRACTITIONER 05/06/18 documented as of this encounter
--- OUTSIDE RECORDS SUMMARY | 2024-07-10 23:00 | XMS_ITS | Encounter Summary ---
Author Organization [facility] Address [address] [place] [address]. [place], [place] [address] [place] [address] Care Team Providers Care Laborer Construction Or Leak Gang Name Role Phone Keyonna Armstrong Primary Care Provider [phone] Reason for Visit * Reason Onset Date Comments Consult 08/20/2019 Encounter Details Date Type Department Care Team (Late st Contact Info) Description 08/20/2019 Telephone [facility] [place] [address] Susi Parikh RMA Consult Social History Tobacco [...] CDT Gender Identity Female 07/17/2022 10:27 AM CAPTAIN FIRE PREVENTION BUREAU Sexual Orientation Straight 07/17/2022 10 :27 AM CAPTAIN FIRE PREVENTION BUREAU documented as of this encounter Progress Notes * TINO Knowles - 08/20/2019 9:42 AM CST Left message on for patient to schedule cardiology consult per Keyonna Armstrong NP (x2) AIN FIRE PREVENTION BUREAU documented in this encounter Plan of Treatment Upcoming Encounters Date Type Department Care Team (Late st Contact Info) Description 07/25/2024 10:00 AM CAPTAIN FIRE PREVENTION BUREAU Office Visit [facility] Medical Group Family & Internal Medicine - [place] [address] [place] [address] Keyonna Armstrong APNP [address] [place] [address] 07/31/2024 10:15 AM CAPTAIN FIRE PREVENTION BUREAU Office Visit [facility] THREE [facility] [address] [place], [place] [phone] Pepe Mitcehll MD Three [facility]. [facility] [address] [place], [place] [phone] documented as of this encounter Visit Diagnoses Not on filedocumented in this encounter Additional Health Concerns Assessment Noted Time PHQ-9 Depression Total Score: 22 020 3:46 PM CAPTAIN FIRE PREVENTION BUREAU documented as of this encounter Care Teams Laborer Construction Or Leak Gang Relationship Specialty Start Date End Date Keyonna Armstrong APNP [address] [place] [address] PCP - General NURSE PRACTITIONER 05/06/18 documented as of this encounter
--- OUTSIDE RECORDS SUMMARY | 2024-07-10 23:00 | XMS_ITS | Encounter Summary ---
Author Organization [facility] Address [address] [place] [address]. [place], [place] [phone] [place] [address] Care Team Providers Care Manager Risk Management Name Role Phone Keyonna Armstrong Primary Care Provider [phone] Encounter Details Date Type Department Care Team (Latest Contact Info) Description 12/24/2018 Scan HEALTH INFO SRVCS Scanned, Documents Social [...] CDT Gender Identity Female 07/17/2022 10:27 AM SENIOR CAREGIVER Sexual Orientation Straight 07/17/2022 10 :27 AM SENIOR CAREGIVER documented as of this encounter Plan of Treatment Upcoming Encounters Date Type Department Care Team (Late st Contact Info) Description 07/25/2024 10:00 AM SENIOR CAREGIVER Office Visit [facility] Family & Internal Medicine - [place] [address] [place] [address] Keyonna Armstrong APNP [address] [place] [address] 07/31/2024 10:15 AM SENIOR CAREGIVER Office [facility], [address] [address] Pepe Mitchell MD Three [facility]. [facility] [address] [place] [address] documented as of this encounter Visit Diagnoses Not on filedocumented in this encounter Additional Health Concerns Assessment Noted Time PHQ-9 Depression Total Score: 23 019 9:51 AM CDT documented as of this encounter Care Teams Manager Risk Management Relationship Specialty Start Date End Date Keyonna Armstrong APNP [address] [place] [address] PCP - General NURSE PRACTITIONER 05/06/18 documented as of this encounter
--- OUTSIDE RECORDS SUMMARY | 2024-07-10 23:00 | XMS_ITS | Encounter Summary ---
Author Organization [facility] Address [address] [place] [address]. [place], [place] [address] [place] [address] Care Team Providers Care Skip Load Driver Name Role Phone Keyonna Armstrong Primary Care Provider [phone] Reason for Visit * Reason Onset Date Comments Appointment Request 03/27/2019 Encounter Details Date Type Department Care Team (Late st Contact Info) Description 03/27/2019 Telephone [facility] Medical [facility] Diabetes and Endocrinology - [address] [address] Camilla Solis MD Appointment Request Social History [...] CDT Gender Identity Female 07/17/2022 10:27 AM GRAPPLE OPERATOR Sexual Orientation Straight 07/17/2022 10 :27 AM GRAPPLE OPERATOR documented as of this encounter Progress Notes * Padmaja Daily - 03/27/2019 9:48 AM CDT LM for pt to discuss scheduling options. documented in this encounter Plan of Treatment Upcoming Encounters Date Type Department Care Team (Late st Contact Info) Description 07/25/2024 10:00 AM GRAPPLE OPERATOR Office Visit [facility] Medical Group Family & Internal Medicine - [place] [address] [place] [address] Keyonna Armstrong APNP [address] [place] [address] 07/31/2024 10:15 AM GRAPPLE OPERATOR Office Visit [facility], [facility] [address] [place] [address] Pepe Mitchell MD Three [facility]. [facility] [address] [place] [address] documented as of this encounter Visit Diagnoses Not on filedocumented in this encounter Additional Health Concerns Assessment Noted Time PHQ-9 Depression Total Score: 12 019 9:59 AM CDT documented as of this encounter Care Teams Skip Load Driver Relationship Specialty Start Date End Date Keyonna Armstrong APNP [address] [place] [address] PCP - General NURSE PRACTITIONER 05/06/18 documented as of this encounter
--- OUTSIDE RECORDS SUMMARY | 2024-07-10 23:00 | XMS_ITS | Encounter Summary ---
Author Organization [facility] Address [address] [place] [address]. [place] [id number] [place] [address] Care Team Providers Care Chief Clinical Officer Name Role Phone Keyonna Armstrong Primary Care Provider [phone] Reason for Visit * Reason Comments Follow Up Encounter Details Date Type Department Care Team (Late st Contact Info) Description 08/06/2019 11:20 AM LOCUM TENENS Office Visit [facility] Family & Internal Medicine [facility] [address] [place] [address] Keyonna Armstrong APNP [address] [place] [address] Follow Up Social History Tobacco Use Types [...] CDT Gender Identity Female 07/17/2022 10:27 AM LOCUM TENENS Sexual Orientation Straight 07/17/2022 10 :27 AM LOCUM TENENS documented as of this encounter Last Filed Vital Signs Vital Sign Reading Time Taken Comments Blood Pressure 103/71 08/06/2019 11:42 AM LOCUM TENENS Pulse 98 08/06/2019 11:42 AM LOCUM TENENS Temperature 36.1 ??C (96.9 ??F) 08/06/2019 11:[address] Respiratory Rate 14 08/06/2019 11:42 AM LOCUM TENENS Oxygen Saturation 97% 08/06/2019 11:42 AM LOCUM TENENS Inhaled Oxygen Concentration - - Weight 139.7 kg (308 lb) 08/06/2019 11:42 AM LOCUM TENENS Height 162.6 cm (5' 4) 08/06/2019 11:42 AM LOCUM TENENS Body Mass Index 52.87 08/06/2019 11:42 AM LOCUM TENENS documented in this encounter Progress Notes * YOBANI Cruz - 08/06/2019 11:20 AM CST Images from the original note were not included. [facility]ILY AND INTERNAL MEDICINE OFFICE VISIT Reason for Visit: Follow Up History of Present Illness: Patient is here today for 1 week follow-up. At her last appointment with me she was complaining of worsening anxiety and depression that she felt was brought on by the Rexulti. This medication has since been discontinued and she has been started on Wellbutrin. She feels this is going very well she has not is what she calls out of the hole yet but feels she is improving. She feels she has been sleeping a little better. She denies any hallucinations, self-harm HI/SI and feels she is not a threat to herself or others. She states she is not as tearful anymore. She is not tearful in exam room today. Her heart rate has improved and is down to 98. She would like to continue with her current doseof Wellbutrin. She has an appointment with a psychiatrist tomorrow. She continues to deny any chestpain, shortness of breath, headache, dizziness, heart palpitations or lower extremity edema. A cardiology referral was placed on July 31, 2019. Patient also has a current referral for hematology due to a consistent elevated white blood cell count and a referral in place for endocrinology for an adrenal adenoma which was diagnosed in 2018. Patient did not follow-up with endocrinology as she is supposed to. Will reiterate importance of thesereferrals today. ROS: Review of Systems Constitutional: Negative for chills, fever and malaise/fatigue. Eyes: Negative for blurred vision and double vision. Respiratory: Negative for cough, shortness of breath and wheezing. Cardiovascular: Negative for chest pain, palpitations and leg swelling. Gastrointestinal: Negative for abdominal pain, diarrhea, nausea and vomiting. Skin: Negative for itching and rash. Neurological: Negative for dizziness and headaches. Psychiatric/Behavioral: Positive for depression. Negative for hallucinations, substance abuse and suicidal ideas. The patient [...] Rfl: 3 ??? lorazepam 1 MG tablet, Take 1 [...] file Gets together: Not on file Attends roman catholic service: Not on file Active member of [...] Nursing note and vitals reviewed. Filed Vitals: 08/06/19 1142 BP: 103/71 Pulse: 98 Resp: 14 Temp: 96.9 ??F (36.1 ??C) SpO2: 97% Weight: (!) 139.7 kg (308 lb) Height: 5' 4 (1.626 m) Labs: Labs Reviewed Diagnoses/Impression: 1. Recurrent major depressive disorder, in partial remission (CMS/HCC) Chronic 2. Anxiety Chronic Recommendations and Plan: 1. Recurrent major depressive disorder, in partial remission (CMS/HCC) 2. Anxiety Symptoms improving. I would like for patient to continue her current doses of venlafaxine, lorazepam and Wellbutrin. She is to keep her appointment with psychiatry as scheduled tomorrow. In the meantime, she is let me know if symptoms change or worsen. No orders of the defined types were placed in this encounter. Cannot display discharge medications since this is not an admission. PCP: YOBANI Cruz 08/07/2019 M TENENS documented in this encounter Plan of Treatment Upcoming Encounters Date Type Department Care Team (Late st Contact Info) Description 07/25/2024 10:00 AM LOCUM TENENS Office Visit [facility] Family & Internal Medicine [address] [address] Keyonna Armstrong APNP [address] [place] [address] 07/31/2024 10:15 AM LOCUM TENENS Office Visit [facility] THREE [facility], [place] [address] [place] [address] Pepe Mitchell MD Three [facility]. [place] [address] [place], [place] [phone] documented as of this encounter Visit Diagnoses Diagnosis Recurrent major depressive disorder, in partial remission (CMS/HCC)- Primary Anxiety Anxiety state, unspecified documented in this encounter Additional Health Concerns Assessment Noted Time PHQ-9 Depression Total Score: 22 020 3:46 PM LOCUM TENENS documented as of this encounter Care Teams Chief Clinical Officer Relationship Specialty Start Date End Date Keyonna Armstrong APNP [address] [place] [address] PCP - General NURSE PRACTITIONER 05/06/18 documented as of this encounter
--- OUTSIDE RECORDS SUMMARY | 2024-07-10 23:00 | XMS_ITS | Encounter Summary ---
Author Organization [facility] Address [address] [place] [address]. [place], [place] [phone] [place] [address] Care Team Providers Care Rehab Physician Name Role Phone Keyonna Armstrong Primary Care Provider [phone] Encounter Details Date Type Department Care Team (Latest Contact Info) Description 07/24/2019 Scan HEALTH INFO SRVCS Scanned, Documents Social [...] CDT Gender Identity Female 07/17/2022 10:27 AM LEAD RAMP AGENT Sexual Orientation Straight 07/17/2022 10 :27 AM LEAD RAMP AGENT documented as of this encounter Plan of Treatment Upcoming Encounters Date Type Department Care Team (Late st Contact Info) Description 07/25/2024 10:00 AM LEAD RAMP AGENT Office Visit [facility] Family & Internal Medicine - [place] [address] [place] [address] Keyonna Armstrong APNP [address] [place] [address] 07/31/2024 10:15 AM LEAD RAMP AGENT Office Visit [facility] THREE [facility], [place] [address] [place] [address] Pepe Mitchell MD Three [facility]. [place] [address] [place] [address] documented as of this encounter Visit Diagnoses Not on filedocumented in this encounter Additional Health Concerns Assessment Noted Time PHQ-9 Depression Total Score: 12 019 9:59 AM CDT documented as of this encounter Care Teams Rehab Physician Relationship Specialty Start Date End Date Keyonna Armstrong APNP [address] [place] [address] PCP - General NURSE PRACTITIONER 05/06/18 documented as of this encounter
--- OUTSIDE RECORDS SUMMARY | 2024-07-10 23:00 | XMS_ITS | Encounter Summary ---
Author Organization [facility] Address [address] [place] [address]. [place], [place] [address] [place] [address] Care Team Providers Care Probation Agent Name Role Phone Keyonna Armstrong Primary Care Provider [phone] Encounter Details Date Type Department Care Team (Late st Contact Info) Description 12/23/2018 Orders Only [facility] Family & Internal Medicine [address] [phone] Negar Reese MA Social History Tobacco Use Types Packs/Day Years [...] CDT Gender Identity Female 07/17/2022 10:27 AM ACCOUNTS RECEIVABLE ANALYST Sexual Orientation Straight 07/17/2022 10 :27 AM ACCOUNTS RECEIVABLE ANALYST documented as of this encounter Plan of Treatment Upcoming Encounters Date Type Department Care Team (Late st Contact Info) Description 07/25/2024 10:00 AM ACCOUNTS RECEIVABLE ANALYST Office Visit [facility] Family & Internal Medicine [address] [address] Keyonna Armstrong APNP [address] [place] [id number] 07/31/2024 10:15 AM ACCOUNTS RECEIVABLE ANALYST Office Visit [facility] [place] [address] [place] [address] Pepe Mitchell MD Three [facility]. [facility] [address] [place] [address] documented as of this encounter Visit Diagnoses Not on filedocumented in this encounter Care Teams Probation Agent Relationship Specialty Start Date End Date Keyonna Armstrong APNP [address] [place] [address] PCP - General NURSE PRACTITIONER 05/06/18 documented as of this encounter
--- OUTSIDE RECORDS SUMMARY | 2024-07-10 23:00 | XMS_ITS | Encounter Summary ---
Author Organization [facility] Address [address] [place] [address]. [place] [phone] [place] [address] Care Team Providers Care Bisque Kiln Placer Name Role Phone Keyonna Armstrong Primary Care Provider [phone] Reason for Visit * Reason Onset Date Comments Lab Results 02/10/2019 Encounter Details Date Type Department Care Team (Late st Contact Info) Description 02/10/2019 Telephone [facility] Family & Internal Medicine [facility] [address] [place] [address] Keyonna Armstrong APNP [address] [place] [address] Lab Results Social History Tobacco [...] CDT Gender Identity Female 07/17/2022 10:27 AM BRIDGE MECHANIC Sexual Orientation Straight 07/17/2022 10 :27 AM BRIDGE MECHANIC documented as of this encounter Progress Notes * YOBANI Cruz - 03/20/2019 9:06 AM CDT Let her know CBC improving. * Sherlyn Omalley RN - 02/12/2019 9:59 AM CDT LMTC and letter printed. * Sherlyn Omalley RN - 02/11/2019 1:21 PM CDT LMTC 02/11/19 * Sherlyn Omalley RN - 02/10/2019 11:16 AM CDT LMTC and lab ordered. * Sherlyn Omalley RN - 02/10/2019 11:13 AM CDT ----- Message from YOBANI Cruz sent at 02/07/2019 4:23 PM CDT ----- Let pt know her CBC was stable. WBC still a little elevated. Will recheck CBC at her next one monthfollow up. documented in this encounter Plan of Treatment Upcoming Encounters Date Type Department Care Team (Late st Contact Info) Description 07/25/2024 10:00 AM BRIDGE MECHANIC Office Visit [facility] Family & Internal Medicine - [place] [address] [place] [address] Keyonna Armstrong APNP [address] [place] [address] 07/31/2024 10:15 AM BRIDGE MECHANIC Office Visit [facility] THREE [facility] [place] [address] [place] [address] Pepe Mitchell MD Three [facility]. [place] [address] [place] [address] documented as of this encounter Procedures Procedure Name Priority Date/Time Associated Diagnosis Comments CBC W/DIFF AUTOMATED Routine 03/17/2019 1:59 PM CDT Abnormal CBC documented in this encounter Results * (ABNORMAL) CBC W/DIFF AUTOMATED (03/17/2019 1:59 PM CDT) WBC 11.7(H) 3.8 - 10.8 Thousand/ uL [facility] RBC 4.67 3.80 - 5.10 Million/u L [facility] HGB 13.4 11.7 - 15.5 g/dL [facility] HCT 40.7 35.0 - 45.0 % [facility] MCV 87.2 80.0 - 100.0 fL [facility] MCH (QHPE) 28.7 27.0 - 33.0 pg [facility] MCHC 32.9 32.0 - 36.0 g/dL [facility] RDW (QHPE) 14.1 11.0 - 15.0 % [facility] PLT 425(H) 140 - 400 Thousand/ uL [facility] MPV 10.0 7.5 - 12.5 fL [facility] ABS. NEUTROPHILS 6,938 1,500 - 7,800 cells/uL [facility] ABS. LYMPHOCYTES 3,498 850 - 3,900 cells/uL [facility] ABS. MONOCYTES 1,030(H) 200 - 950 cells/uL [facility] ABS. EOSINOPHILS 164 15 - 500 cells/uL [facility] ABS. BASOPHILS 70 0 - 200 cells/uL [facility] SEG NEUTROPHILS 59.3 % [facility] LYMPHOCYTES 29.9 % [facility] MONOCYTES 8.8 % [facility] EOSINOPHILS 1.4 % [facility] BASOPHILS 0.6 % [facility] 03/17/2019 1:59 PM CDT 03/18/2019 5:38 AM CDT Narrative Resulting Agency Comment Performing Organization Information: ?Site ID: [id number] ?Name: [facility] ?Address: [address] [id number] ?Director: Servando Cervantes D.O., MPH us Keyonna [facility] Edited Resu lt - Final [facility] documented in this encounter Visit Diagnoses Diagnosis Abnormal CBC- Primary Other abnormal blood chemistry documented in this encounter Additional Health Concerns Assessment Noted Time PHQ-9 Depression Total Score: 12 019 9:59 AM CDT documented as of this encounter Care Teams Bisque Kiln Placer Relationship Specialty Start Date End Date Keyonna Armstrong APNP [address] [place] [address] PCP - General NURSE PRACTITIONER 05/06/18 documented as of this encounter
--- OUTSIDE RECORDS SUMMARY | 2024-07-10 23:00 | XMS_ITS | Encounter Summary ---
Author Organization [facility] Address [facility]. [place], [place] [address] [place] [address] Care Team Providers Care Quality Assurance Inspector Name Role Phone Aracely Armstrong Primary Care Provider [phone] Reason for Referral * Consultation (Routine) - Closed Specialty Diagnoses / Procedures Referred By Lee t Referred To Contact ENDOCRINOLOGY Diagnoses Adenoma of left adrenal gland Aracely Armstrong APNP [address] [place] [address] Phone: tel: fax: [facility] Diabetes and Endocrinology - [address] [address] Phone: tel: fax: Referral ID Status Reason Start Date Expiration Date Visits Re quested Visits Authorized [id number] Closed 12/26/2018 01/26/2020 1 1 Reason for Visit * Reason Comments Depression Encounter Details Date Type Department Care Team (Late st Contact Info) Description 12/24/2018 9:00 AM CDT Office Visit [facility] Family & Internal Medicine - [place] [address] [place] [phone] Aracely Armstrong APNP [address] [place], [place] [phone] Depression Social History Tobacco Use Types Packs/Day Years [...] CDT Gender Identity Female 07/17/2022 10:27 AM LAWN SPECIALIST Sexual Orientation Straight 07/17/2022 10 :27 AM LAWN SPECIALIST documented as of this encounter Last Filed Vital Signs Vital Sign Reading Time Taken Comments Blood Pressure 136/88 12/24/2018 9:47 AM CDT Pulse 108 12/24/2018 9:47 AM CDT Temperature 36.8 ??C (98.2 ??F) 12/24/2018 9:03 AM CD T Respiratory Rate 14 12/24/2018 9:03 AM CDT Oxygen Saturation 98% 12/24/2018 9:03 AM CDT Inhaled Oxygen Concentration - - Weight 132.5 kg (292 lb) 12/24/2018 9:03 AM CDT Height 162.6 cm (5' 4) 12/24/2018 9:03 AM CDT Body Mass Index 50.12 12/24/2018 9:03 AM CDT documented in this encounter Progress Notes * YOBANI Cruz - 12/24/2018 9:00 AM CDTAddended by: ARACELY ARMSTRONG on: 12/26/2018 10:02 AM Modules accepted: Orders * YOBANI Cruz - 12/24/2018 9:00 AM CDT Images from the original note were not included. [facility]NAL [facility]ICINE OFFICE VISIT Reason for Visit: Depression History of Present Illness: Pt here today for follow up on depression and anxiety. She states she feels her depression has leveled off and she just can't seem to get over the hump. Would like to discuss addition of a new med. She states she does not want to change her meds, but would just like to add something. She does admit to having some HI/SI, but does not have a plan and states she would never kill herself, but states she just feels sometimes life would be easier if sh was not here. PHQ-9 score today was 23. She also describes her symptoms as a lack of interest in thingsshe once enjoyed. She feels like cries often. She denies any fluctuation in her feelings. Denies any iliana type episodes. She is currently taking venlafaxine 225 mg. Would like to try Rexulti or Wellbutrin if possible. She prefers to start with the Rexulti if possible. She denies any history of seizures. Her BP is elevated at today's visit. States she has not had her BP meds as of yet today. States usually takes at night, except for the hydrochlorothiazide which she takes during the day. She denies any CP, SOB, RUDD, dizziness, heart palpitations or lower extremity edema. BP improved upon recheck. She was seeing Dr. Andrzej Barrios for an adrenal nodule and her last visit with her was in 10/2017---she was supposed to have followed up in 4 months, but did not. She states she went to [facility] to discuss her OCP and states she was told she could stay on her OCP fornow. States she was seen at [facility]. Will verify this. She wears CPAP nightly and tolerates well. She states she still often wakes up tired. Had her CPAP checked at [place] with her recent surgery and states her last sleep study was about 6 months ago. She is due for routine fasting labs and these will be ordered today. ROS: Review of Systems [...] for dizziness and headaches. Psychiatric/Behavioral: Positive for depression and suicidal ideas. The patient has insomnia. The patient is not nervous/anxious. Medications: Current Outpatient Medications: ??? amlodipine 5 MG tablet, Take 1 tablet (5 mg total) by mouth daily., Disp: 90 tablet, Rfl: 1 ??? hydrochlorothiazide 25 MG tablet, Take 1 tablet by mouth daily., Disp: , Rfl: ??? levonorgestrel-ethinyl estradiol (ENPRESSE-28) tablet, Take 1 tablet by mouth daily., Disp: 84 tablet, Rfl: 0 ??? lisinopril 40 MG [...] ), Disp: 270 capsule, Rfl: 1 ??? ZOLPIDEM 10 MG tablet, TAKE 1 TABLET BY MOUTH AT BEDTIME, Disp: 30 tablet, Rfl: 1 ??? IBUPROFEN 800 MG tablet, TAKE 1 TABLET BY MOUTH EVERY 6 HOURS NEEDED FOR PAIN., Disp: 90 tablet, Rfl: 1 Allergies: No Known Allergies [...] file Gets together: Not on file Attends adventism service: Not on file Active member of [...] No distress. HENT: Head: Normocephalic and atraumatic. Eyes: [...] Nursing note and vitals reviewed. Filed Vitals: 12/24/18 0903 12/24/18 0947 BP: (!) 153/114 136/88 Pulse: 122 Resp: 14 Temp: 98.2 ??F (36.8 ??C) SpO2: 98% Weight: 132.5 kg (292 lb) Height: 5' 4 (1.626 m) Labs: Labs Reviewed Diagnoses/Impression: 1. Essential hypertension CBC W/DIFF AUTOMATED COMPREHENSIVE METABOLIC PANEL TSH W/REFLEX URINALYSIS VENIPUNC ARM DRAW CANCELED: VENIPUNC ARM DRAW Chronic 2. Recurrent major depressive disorder, in partial remission (CMS/HCC) CBC W/DIFF AUTOMATED COMPREHENSIVE METABOLIC PANEL TSH W/REFLEX VENIPUNC ARM DRAW CANCELED: VENIPUNC ARM DRAW Chronic 3. Anxiety COMPREHENSIVE METABOLIC PANEL TSH W/REFLEX VENIPUNC ARM DRAW CANCELED: VENIPUNC ARM DRAW Chronic 4. Obstructive sleep apnea CBC W/DIFF AUTOMATED VENIPUNC ARM DRAW CANCELED: VENIPUNC ARM DRAW Chronic 5. Lipid screening LIPID PANEL VENIPUNC ARM DRAW CANCELED: VENIPUNC ARM DRAW 6. Adenoma of left adrenal gland AMB REFERRAL TO ENDOCRINOLOGY Recommendations and Plan: 1. Essential hypertension - CBC W/DIFF AUTOMATED; Future - COMPREHENSIVE METABOLIC PANEL; Future - TSH W/REFLEX; Future - URINALYSIS; Future - CBC W/DIFF AUTOMATED - COMPREHENSIVE METABOLIC PANEL - TSH W/REFLEX - URINALYSIS - VENIPUNC ARM DRAW BP improved upon recheck. Continue meds. Would like for her to take metoprolol during the day as HR remains a little elevated. . 2. Recurrent major depressive disorder, in partial remission (CMS/HCC) - CBC W/DIFF AUTOMATED; Future - COMPREHENSIVE METABOLIC PANEL; Future - TSH W/REFLEX; Future - CBC W/DIFF AUTOMATED - COMPREHENSIVE METABOLIC PANEL - TSH W/REFLEX - VENIPUNC ARM DRAW Worsening. Would like to recheck labs prior to initiating new med. Risks, benefits and side effectsof Rexulti discussed with pt today. 3. Anxiety - COMPREHENSIVE METABOLIC PANEL; Future - TSH W/REFLEX; Future - COMPREHENSIVE METABOLIC PANEL - TSH W/REFLEX - VENIPUNC ARM DRAW Continue meds. Stable. 4. Obstructive sleep apnea - CBC W/DIFF AUTOMATED; Future - CBC W/DIFF AUTOMATED - VENIPUNC ARM DRAW Continue use of CPAP. 5. Lipid screening - LIPID PANEL; Future - LIPID PANEL - VENIPUNC ARM DRAW 6. Adenoma of left adrenal gland Endocrinology referral initiated today. Pt reminded of importance of follow up. Orders Placed This Encounter ??? VENIPUNC ARM DRAW ??? CBC W/DIFF AUTOMATED ??? COMPREHENSIVE METABOLIC PANEL ??? LIPID PANEL ??? TSH W/REFLEX ??? URINALYSIS ??? Ambulatory referral to Endocrinology (OTHER) Cannot display discharge medications since this is not an admission. PCP: YOBANI Cruz 12/26/2018 * YOBANI Cruz - 12/24/2018 9:00 AM CDT Results discussed with pt. documented in this encounter Plan of Treatment Upcoming Encounters Date Type Department Care Team (Late st Contact Info) Description 07/25/2024 10:00 AM LAWN SPECIALIST Office Visit [facility] Family & Internal Medicine - [place] [address] [place] [phone] Aracely Armstrong APNP [address] [place] [address] 07/31/2024 10:15 AM LAWN SPECIALIST Office Visit [facility], [address] [address] Pepe Mitchell MD Three [facility]. [facility] [address] [place], [place] [address] Scheduled Orders Name Type Priority Associated Diagnoses Orde r Schedule VENIPUNC ARM DRAW Procedures Routine Essential hypertension Recurrent major depressive disorder, in partial remission Anxiety Obstructive sleep apnea Lipid screening Ordered: 12/24/2018 Scheduled Referrals Name Type Priority Associated Diagnoses Orde r Schedule Ambulatory referral to Endocrinology (OTHER) Referral Routine Adenoma of left adrenal gland Ordered: 12/26/2018 documented as of this encounter Procedures Procedure Name Priority Date/Time Associated Diagnosis Comments TSH W/REFLEX Routine 12/24/2018 10:06 AM CDT Essential hypertension Recurrent major depressive disorder, in partial remission Anxiety URINALYSIS Routine 12/24/2018 10:06 AM CDT Essential hypertension COMPREHENSIVE METABOLIC PANEL Routine 12/24/2018 10:06 AM CDT Essential hypertension Recurrent major depressive disorder, in partial remission Anxiety LIPID PANEL Routine 12/24/2018 10:06 AM CDT Lipid screening CBC W/DIFF AUTOMATED Routine 12/24/2018 10:06 AM CDT Essential hypertension Recurrent major depressive disorder, in partial remission Obstructive sleep apnea documented in this encounter Results * URINALYSIS (12/24/2018 10:06 AM CDT) COLOR (U) YELLOW YELLOW [facility] APPEARANCE SEMEN CLEAR CLEAR [facility] SPECIFIC GRAVITY (U) 1.017 1.001 - 1.035 [facility] PH (U) 7.0 5.0 - 8.0 [facility] URINE GLUCOSE NEGATIVE NEGATIVE [facility] KETONE (U) NEGATIVE NEGATIVE [facility] BLOOD (U) NEGATIVE NEGATIVE [facility] PROTEIN (U) NEGATIVE NEGATIVE [facility] URINE SPECIMEN OBTAINED BY CLEAN CATCH PROCEDURE / Unknown 12/24/2018 10:06 AM CDT 12/25/2018 5:16 AM CDT Narrative Resulting Agency Comment Performing Organization Information: ?Site ID: RICH ?Name: [facility] ?Address: [address] [place] [address] ?Director: Servando Cervantes D.O., MPH Aracely [facility] URINE ORDERABLES Final Resu lt Performing Organization Address [facility] de Phone Number [facility] * TSH W/REFLEX (12/24/2018 10:06 AM CDT) TSH 1.59 mIU/L [facility] Comment: ?Reference Range ?> or = 20 Years ??0.40-4.50 ? Ranges ?First trimester ?0.26-2.66 ?Second trimester ?? 0.55-2.73 ?Third trimester ?0.43-2.91 12/24/2018 10:0 6 AM CDT 12/25/2018 5:12 AM CDT Narrative Resulting Agency Comment Performing Organization Information: ?Site ID: RICH ?Name: [facility] ?Address: [address] [place] [address] ?Director: Servando Cervantes D.O., MPH Aracely [facility] Final Resul t Performing Organization Address [facility] de Phone Number [facility] * (ABNORMAL) LIPID PANEL (12/24/2018 10:06 AM CDT) CHOLESTEROL 141 <200 mg/dL [facility] HDL 46(L) >50 mg/dL [facility] TRIGLYCERIDES 230(H) <150 mg/dL [facility] LDL (CALCULATED) 66 mg/dL (calc) [facility] Comment: Reference range: <100 Desirable range <100 mg/dL for primary prevention; ?? <70 mg/dL for patients with CHD or diabetic patients with > or = 2 CHD risk factors. LDL-C is now calculated using the Carlos Enrique calculation, which is a validated novel method providing better accuracy than the Friedewald equation in the estimation of LDL-C. Deep SS et al. JAMAR. 2013;310(69): 1843-5647 (http://education.Jobulous/faq/DDK756) CHOL/HDL RATIO 3.1 <5.0 (calc) [facility] NON HDL CHOLESTEROL 95 <130 mg/dL (calc) [facility] Comment: For patients with diabetes plus 1 major ASCVD risk factor, treating to a non-HDL-C goal of <100 mg/dL (LDL-C of <70 mg/dL) is considered a therapeutic option. 12/24/2018 10:0 6 AM CDT 12/25/2018 5:12 AM CDT Narrative Resulting Agency Comment Performing Organization Information: ?Site ID: [id number] ?Name: [facility] ?Address: [address] [address] ?Director: Servando Cervantes D.O., MPH Aracely [facility] Final Resul t [facility] * COMPREHENSIVE METABOLIC PANEL (12/24/2018 10:06 AM CDT) [facility] GLUCOSE 80 65 - 99 mg/dL [facility] Comment: ? Fasting reference interval BUN 20 7 - 25 mg/dL [facility] CREATININE S/P/B 0.60 0.50 - 1.05 mg/dL [facility] Comment: For patients >49 years of age, the reference limit for Creatinine is approximately 13% higher for people identified as -Bulgarian. EGFR NON-AFR. AMER. 106 > OR = 60 mL/min/1 .73m2 [facility] EGFR AFR. AMER. 123 > OR = 60 mL/min/1 .73m2 [facility] BUN CREATININE RATIO NOT APPLICABLE 6 - 22 (calc) [facility] SODIUM S/P/B 139 135 - 146 mmol/L [facility] POTASSIUM S/P/B 4.3 3.5 - 5.3 mmol/L [facility] CHLORIDE S/P/B 101 98 - 110 mmol/L [facility] CO2 27 20 - 32 mmol/L [facility] CALCIUM S/P/B 9.8 8.6 - 10.4 mg/dL [facility] TOTAL PROTEIN S/P/B 6.9 6.1 - 8.1 g/dL [facility] ALBUMIN S/P/B 3.8 3.6 - 5.1 g/dL [facility] GLOBULIN 3.1 1.9 - 3.7 g/dL (calc) [facility] ALBUMIN/GLOBULIN RATIO 1.2 1.0 - 2.5 (calc) [facility] BILIRUBIN TOTAL (FLUID) 0.3 0.2 - 1.2 mg/dL [facility] ALK PHOS 92 33 - 130 U/L [facility] AST 15 10 - 35 U/L [facility] ALT 14 6 - 29 U/L [facility] 12/24/2018 10:0 6 AM CDT 12/25/2018 5:12 AM CDT Narrative Resulting Agency Comment Performing Organization Information: ?Site ID: RICH ?Name: [facility] ?Address: [address] [address] ?Director: Servando Cervantes D.O., MPH Aracely [facility] Final Resul t [facility] * (ABNORMAL) CBC W/DIFF AUTOMATED (12/24/2018 10:06 AM CDT) WBC 11.7(H) 3.8 - 10.8 Thousand/ uL [facility] RBC 4.92 3.80 - 5.10 Million/u L [facility] HGB 14.0 11.7 - 15.5 g/dL [facility] HCT 44.2 35.0 - 45.0 % [facility] MCV 89.8 80.0 - 100.0 fL [facility] MCH (QHPE) 28.5 27.0 - 33.0 pg [facility] MCHC 31.7(L) 32.0 - 36.0 g/dL [facility] RDW (QHPE) 14.3 11.0 - 15.0 % [facility] PLT 423(H) 140 - 400 Thousand/ uL [facility] MPV 9.6 7.5 - 12.5 fL [facility] ABS. NEUTROPHILS 8,015(H) 1,500 - 7,800 cells/uL [facility] ABS. LYMPHOCYTES 2,363 850 - 3,900 cells/uL [facility] ABS. MONOCYTES 1,088(H) 200 - 950 cells/uL [facility] ABS. EOSINOPHILS 176 15 - 500 cells/uL [facility] ABS. BASOPHILS 59 0 - 200 cells/uL [facility] SEG NEUTROPHILS 68.5 % [facility] LYMPHOCYTES 20.2 % [facility] MONOCYTES 9.3 % [facility] EOSINOPHILS 1.5 % [facility] BASOPHILS 0.5 % [facility] 12/24/2018 10:0 6 AM CDT 12/25/2018 5:12 AM CDT Narrative Resulting Agency Comment Performing Organization Information: ?Site ID: [id number] ?Name: [facility] ?Address: [address] [place] [address] ?Director: Servando Cervantes D.O., MPH Aracely [facility] Final Resul t [facility] documented in this encounter Visit Diagnoses Diagnosis Essential hypertension- Primary Unspecified essential hypertension Recurrent major depressive disorder, in partial remission (CMS/HCC) Anxiety Anxiety state, unspecified Obstructive sleep apnea Obstructive sleep apnea (adult) (pediatric) Lipid screening Screening for lipoid disorders Adenoma of left adrenal gland Benign neoplasm of adrenal gland documented in this encounter Additional Health Concerns Assessment Noted Time PHQ-9 Depression Total Score: 23 12/24/ 019 9:51 AM CDT documented as of this encounter Care Teams Quality Assurance Inspector Relationship Specialty Start Date End Date Aracely Armstrong APNP [address] [place] [address] PCP - General NURSE PRACTITIONER 05/06/18 documented as of this encounter
--- OUTSIDE RECORDS SUMMARY | 2024-07-10 23:00 | XMS_ITS | Encounter Summary ---
Author Organization [facility] Address [address] [place] [address]. [place], [place] [address] [place] [address] Care Team Providers Care Student Success Counselor Name Role Phone Keyonna Armstrong Primary Care Provider [phone] Reason for Visit * Reason Comments Lab (SCAN) Encounter Details Date Type Department Care Team (Latest Contact Info) Description 01/14/2019 Scan HEALTH INFO SRVCS Scanned, Documents Lab [...] CDT Gender Identity Female 07/17/2022 10:27 AM ALL AROUND GEAR MACHINE OPERATOR Sexual Orientation Straight 07/17/2022 10 :27 AM ALL AROUND GEAR MACHINE OPERATOR documented as of this encounter Plan of Treatment Upcoming Encounters Date Type Department Care Team (Late st Contact Info) Description 07/25/2024 10:00 AM ALL AROUND GEAR MACHINE OPERATOR Office Visit [facility] Family & Internal Medicine - [address] [phone] Keyonna Armstrong APNP [facility] [place] [address] 07/31/2024 10:15 AM ALL AROUND GEAR MACHINE OPERATOR Office Visit [facility] [place] [address] [place] [address] Pepe Mitchell MD Three [facility]. [place] [address] [place] [address] documented as of this encounter Procedures Procedure Name Priority Date/Time Associated Diagnosis Comments OUTSIDE LAB (SCAN ORDER) Routine 01/14/2019 documented in this encounter Results * OUTSIDE LAB (01/14/2019) 01/14/2019 us Documents Scanned SCANNING Edited Result - Final [facility] [address] [address] documented in this encounter Visit Diagnoses Not on filedocumented in this encounter Additional Health Concerns Assessment Noted Time PHQ-9 Depression Total Score: 12 019 9:59 AM CDT documented as of this encounter Care Teams Student Success Counselor Relationship Specialty Start Date End Date Keyonna Armstrong APNP [facility] [place] [address] PCP - General NURSE PRACTITIONER 05/06/18 documented as of this encounter
--- OUTSIDE RECORDS SUMMARY | 2024-07-10 23:00 | XMS_ITS | Encounter Summary ---
Author Organization [facility] Address [address] [place] [address]. [place], [place] [phone] [place] [address] Care Team Providers Care Cryptozoologist Name Role Phone Keyonna Armstrong Primary Care Provider [phone] Reason for Visit * Reason Onset Date Comments Letter 08/11/2019 Encounter Details Date Type Department Care Team (Late st Contact Info) Description 08/11/2019 Telephone [facility] Family & Internal Medicine [facility] [address] [place] [address] Keyonna Armstrong APNP [address] [place] [address] Letter Social History Tobacco Use [...] CDT Gender Identity Female 07/17/2022 10:27 AM COMPTOMETRIST Sexual Orientation Straight 07/17/2022 10 :27 AM COMPTOMETRIST documented as of this encounter Progress Notes * Sherlyn Omalley RN - 08/11/2019 2:59 PM CST Spoke to patient; verbalized understanding. TOMETRIST * YOBANI Cruz - 08/11/2019 1:48 PM CST I usually fill out a form brought in by pt. Form is from the state with specific diagnoses that warrant medical marijuana. 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 TOMETRIST * Lupe Dorado - 08/11/2019 1:27 PM CST Patient came in asking if you would write a letter stating why this patient would be eligible for medical marijuana. She stated that she is having her psychiatrist write a letter also before she goesto this meeting she has on Sunday. She stated that she thinks she qualifies for this because shehas RA, PTSD, migraines, and osteoarthritis. They would like us to call and talk to [employer] in [place] to write a similar letter. She stated that she is needing this letter by Sunday. TOMETRIST documented in this encounter Plan of Treatment Upcoming Encounters Date Type Department Care Team (Late st Contact Info) Description 07/25/2024 10:00 AM COMPTOMETRIST Office Visit [facility] Family & Internal Medicine - [place] [address] [place] [address] Keyonna Armstrong APNP [address] [place] [address] 07/31/2024 10:15 AM COMPTOMETRIST Office Visit [facility] [place] [address] [place], [place] [id number] Pepe Mitchell MD Three [facility]. [facility] [address] [place] [address] documented as of this encounter Visit Diagnoses Not on filedocumented in this encounter Additional Health Concerns Assessment Noted Time PHQ-9 Depression Total Score: 22 020 3:46 PM COMPTOMETRIST documented as of this encounter Care Teams Cryptozoologist Relationship Specialty Start Date End Date Keyonna Armstrong APNP [address] [place] [address] PCP - General NURSE PRACTITIONER 05/06/18 documented as of this encounter
--- OUTSIDE RECORDS SUMMARY | 2024-07-10 23:00 | XMS_ITS | Encounter Summary ---
Author Organization [facility] Address [address] [place] [address]. [place], [place] [address] [place] [address] Care Team Providers Care Shaper Hand Name Role Phone Keyonna Armstrong Primary Care Provider [phone] Encounter Details Date Type Department Care Team [...] CDT Gender Identity Female 07/17/2022 10:27 AM CPS TEAM LEAD Sexual Orientation Straight 07/17/2022 10 :27 AM CPS TEAM LEAD documented as of this encounter Plan of Treatment Upcoming Encounters Date Type Department Care Team (Late st Contact Info) Description 07/25/2024 10:00 AM CPS TEAM LEAD Office Visit [facility] Family & Internal Medicine - [place] [address] [place] [address] Keyonna Armstrong APNP [address] [place] [address] 07/31/2024 10:15 AM CPS TEAM LEAD Office Visit [facility] [place] [address] [place] [address] Pepe Mitchell MD Three [facility]. [place] [address] [place] [address] documented as of this encounter Visit Diagnoses Not on filedocumented in this encounter Additional Health Concerns Assessment Noted Time PHQ-9 Depression Total Score: 12 019 9:59 AM CDT documented as of this encounter Care Teams Shaper Hand Relationship Specialty Start Date End Date Keyonna Armstrong APNP [address] [place] [address] PCP - General NURSE PRACTITIONER 05/06/18 documented as of this encounter
--- OUTSIDE RECORDS SUMMARY | 2024-07-10 23:00 | XMS_ITS | Encounter Summary ---
Author Organization [facility] Address [address] [place] [address]. [place] [id number] [place] [address] Care Team Providers Care Television Journalist Name Role Phone Keyonna Armstrong Primary Care Provider +1 [phone] Reason for Visit * Reason Onset Date Comments Medication Problem 06/12/2019 Encounter Details Date Type Department Care Team (Late st Contact Info) Description 06/12/2019 Telephone [facility] Medical [facility] Family & Internal Medicine [facility] [address] [place] [address] Keyonna Armstrong APNP [address] [place] [address] Medication Problem Social History Tobacco [...] CDT Gender Identity Female 07/17/2022 10:27 AM TUNNELING MACHINE OPERATOR Sexual Orientation Straight 07/17/2022 10 :27 AM TUNNELING MACHINE OPERATOR documented as of this encounter Progress Notes * YOBANI Cruz - 06/16/2019 12:13 PM CST filled ELING MACHINE OPERATOR * Mariluz Tariq MA - 06/16/2019 9:49 AM CST Rx pended Med list updated ELING MACHINE OPERATOR * YOBANI Cruz - 06/13/2019 12:29 PM CST Can change back to IR dose-----however at her next follow up with me----we need to discuss a different daily med---so she just has to use the zolpidem PRN Zolpidem 10 mg, #30 no refills ELING MACHINE OPERATOR * Kel Solo MD - 06/12/2019 4:52 PM CST There are notes in her chart that she did not feel that cale was not working, not really sure where to go with this, she will need to wait for Keyonna to give further advice. ELING MACHINE OPERATOR * Mariluz Tariq MA - 06/12/2019 9:32 AM CST Accidentally sent to Keyonna rerouted to Dr. Solo per pt request. ELING MACHINE OPERATOR * Mariluz Tariq MA - 06/12/2019 9:28 AM CST Pt called today and stated that her Zolpidem was sent to the pharmacy for her yesterday but her insurance is not wanting to pay for the extended release so pt is wanting to know if her zolpidem can be switched back to the 10 mg dose she was on previously? Pt aware Keyonna of out office today, and states that she cannot go another day without this medication, needs it to sleep, pt asked this messageto be sent to another provider in hopes this can be taken care of today and mention Dr. Solo and that I send this message to him. ELING MACHINE OPERATOR documented in this encounter Plan of Treatment Upcoming Encounters Date Type Department Care Team (Late st Contact Info) Description 07/25/2024 10:00 AM TUNNELING MACHINE OPERATOR Office Visit [facility] Medical Group Family & Internal Medicine - [place] [address] [place] [address] Keyonna Armstrong APNP [address] [place] [address] 07/31/2024 10:15 AM TUNNELING MACHINE OPERATOR Office Visit [facility] [address] [place] [address] Pepe Mitchell MD [facility]. [facility] [address] [place], [place] [id number] documented as of this encounter Visit Diagnoses Diagnosis Primary insomnia- Primary Persistent disorder of initiating or maintaining sleep documented in this encounter Additional Health Concerns Assessment Noted Time PHQ-9 Depression Total Score: 12 019 9:59 AM CDT documented as of this encounter Care Teams Television Journalist Relationship Specialty Start Date End Date Keyonna Armstrong APNP [address] [place] [address] PCP - General NURSE PRACTITIONER 05/06/18 documented as of this encounter
--- OUTSIDE RECORDS SUMMARY | 2024-07-10 23:00 | XMS_ITS | Encounter Summary ---
Author Organization [facility] Address [address] [place] [address]. [place], [place] [address] [place] [address] Care Team Providers Care Shop Fitter Name Role Phone Keyonna Armstrong Primary Care Provider +1 [phone] Reason for Visit * Reason Comments Lab (SCAN) Encounter Details Date Type Department Care Team (Latest Contact Info) Description 08/26/2019 Scan [facility] SRVCS Scanned, Documents Lab (SCAN) [...] CDT Gender Identity Female 07/17/2022 10:27 AM WIDE PIECE GOODS INSPECTOR Sexual Orientation Straight 07/17/2022 10 :27 AM WIDE PIECE GOODS INSPECTOR documented as of this encounter Plan of Treatment Upcoming Encounters Date Type Department Care Team (Late st Contact Info) Description 07/25/2024 10:00 AM WIDE PIECE GOODS INSPECTOR Office Visit [facility] Medical Group Family & Internal Medicine - [address] [address] Keyonna Armstrong APNP [facility] [place] [address] 07/31/2024 10:15 AM WIDE PIECE GOODS INSPECTOR Office Visit [facility] [address] [place] [address] Pepe Mitchell MD [facility]. [facility] [address] [place] [address] documented as of this encounter Procedures Procedure Name Priority Date/Time Associated Diagnosis Comments OUTSIDE LAB (SCAN ORDER) Routine 08/26/2019 documented in this encounter Results * OUTSIDE LAB (08/26/2019) 08/26/2019 us Documents Scanned SCANNING Final Result [facility] documented in this encounter Visit Diagnoses Not on filedocumented in this encounter Additional Health Concerns Assessment Noted Time PHQ-9 Depression Total Score: 22 07/29/ 020 3:46 PM WIDE PIECE GOODS INSPECTOR documented as of this encounter Care Teams Shop Fitter Relationship Specialty Start Date End Date Keyonna Armstrong APNP [address] [place] [address] PCP - General NURSE PRACTITIONER 05/06/18 documented as of this encounter
--- OUTSIDE RECORDS SUMMARY | 2024-07-10 23:00 | XMS_ITS | Encounter Summary ---
Author Organization [facility] Address [address] [place] [address]. [place] [phone] [place] [address] Care Team Providers Care Control Officer Manager Name Role Phone Keyonna Armstrong Primary Care Provider +1 [phone] Reason for Visit * Reason Comments Follow Up Encounter Details Date Type Department Care Team (Late st Contact Info) Description 01/14/2019 9:40 AM CDT Office Visit [facility] Medical Group Family & Internal Medicine [facility] [address] [place] [phone] Keyonna Armstrong APNP [address] [place], [place] [phone] Follow Up Social History Tobacco Use Types [...] Gender Identity Female 07/17/2022 10:27 AM LINE HELPER Sexual Orientation Straight 07/17/2022 10 :27 AM LINE HELPER documented as of this encounter Last Filed Vital Signs Vital Sign Reading Time Taken Comments Blood Pressure 120/84 01/14/2019 9:29 AM CDT Pulse 100 01/14/2019 9:29 AM CDT Temperature 37.1 ??C (98.8 ??F) 01/14/2019 9:29 AM CD T Respiratory Rate - - Oxygen Saturation 97% 01/14/2019 9:29 AM CDT Inhaled Oxygen Concentration - - Weight 132.5 kg (292 lb) 01/14/2019 9:29 AM CDT Height 162.6 cm (5' 4) 01/14/2019 9:29 AM CDT Body Mass Index 50.12 01/14/2019 9:29 AM CDT documented in this encounter Progress Notes * YOBANI Cruz - 01/14/2019 9:40 AM CDT Images from the original note were not included. [facility] FAMILY AND INTERNAL MEDICINE OFFICE VISIT Reason for Visit: Follow Up History of Present Illness: Pt here today for follow up on Rexulti, that was recently started. She states she thinks she may feel a little better---has only been on current dose for about a week--due to taking so long for her to get filled through her pharmacy. She thinks she is starting to feel a little better. She is not crying as much and is starting to handle life stressors a little better. Denies any worsening of depression symptoms. Denies any thoughts of wanting to hurt herself, self- harm or rash. Denies any abdominal pain, nausea or vomiting. Denies any headache. Denies any chest pain, shortness breath, headache, dizziness, heart palpitations orlower extremity edema. PHQ-9 score today is 12, which is a improvement from her previous PHQ 9 on 12/24/2018 which was 23 and she indicated some HI/SI. She denies HI/SI at today's visit . She is also requesting a refill of her lorazepam and zolpidem. Tolerates these meds well. Denies any bothersome side effects. Able to sleep through the night, forthe most part--does not feel groggy in the morning. Tolerates meds well denies any bothersome side effects. States her anxiety is mostly controlled on her lorazepam and venlafaxine. ROS: Review of Systems Constitutional: Negative for [...] 90 tablet, Rfl: 1 ??? brexpiprazole (REXULTI) 0.5 MG tablet, Take 1 tablet (0.5 mg total) by mouth daily., Disp: 30 tablet, Rfl: 0 ??? hydrochlorothiazide 25 MG tablet, Take 1 tablet by mouth daily., Disp: , Rfl: ??? IBUPROFEN 800 MG tablet, TAKE 1 [...] file Gets together: Not on file Attends rastafarian service: Not on file Active member of [...] No respiratory distress. She has no wheezes. Musculoskeletal: Normal range of motion. She exhibits no deformity. Neurological: She is alert and oriented to person, place, and time. Gait normal. Skin: Skin is warm and dry. No rash noted. She is not diaphoretic. No erythema. No pallor. Psychiatric: Mood and affect normal. Nursing note and vitals reviewed. Filed Vitals: 01/14/19 0929 BP: 120/84 Pulse: 100 Temp: 98.8 ??F (37.1 ??C) SpO2: 97% Weight: 132.5 kg (292 lb) Height: 5' 4 (1.626 m) Labs: Labs Reviewed Diagnoses/Impression: 1. Recurrent major depressive disorder, in partial remission (CMS/HCC) CBC W/DIFF AUTOMATED COMPREHENSIVE METABOLIC PANEL Chronic 2. Anxiety lorazepam 0.5 MG tablet CBC W/DIFF AUTOMATED COMPREHENSIVE METABOLIC PANEL Chronic 3. Primary insomnia zolpidem 10 MG tablet CBC W/DIFF AUTOMATED COMPREHENSIVE METABOLIC PANEL Chronic Recommendations and Plan: 1. Anxiety - lorazepam 0.5 MG tablet; TAKE 1 TABLET BY MOUTH THREE TIMES A DAY NEEDED Dispense: 90 tablet; Refill: 0 Stable. Continue meds. 2. Primary insomnia - zolpidem 10 MG tablet; Take 1 tablet (10 mg total) by mouth nightly at bedtime. at bedtime. Dispense: 30 tablet; Refill: 1 Stable. Continue meds. 3. Recurrent major depressive disorder, in partial remission (CMS/HCC) Depression appears to be improving on addition of Rexulti. Again, risk benefits and side effects ofthis medication were discussed with patient today. Would like to check a CBC and CMP and would likefor her to have this done in about a week. Would like for her to see me in 3 weeks from now which would be about a month after initiating meds. We will talk about dose adjustment at that time if neede d. Orders Placed This Encounter ??? CBC W/DIFF AUTOMATED ??? COMPREHENSIVE METABOLIC PANEL ??? lorazepam 0.5 MG tablet ??? zolpidem 10 MG tablet Cannot display discharge medications since this is not an admission. PCP: YOBANI Cruz 01/14/2019 * YOBANI Cruz - 01/14/2019 9:40 AM CDT Labs to be discussed at upcoming appt. documented in this encounter Plan of Treatment Upcoming Encounters Date Type Department Care Team (Late st Contact Info) Description 07/25/2024 10:00 AM LINE HELPER Office Visit [facility] Medical Group Family & Internal Medicine - [place] [address] [place] [address] Keyonna Armstrong APNP [address] [place] [address] 07/31/2024 10:15 AM LINE HELPER Office Visit [facility] [address] [place] [address] Pepe Mitchell MD [facility]. [facility] [address] [place] [address] documented as of this encounter Procedures Procedure Name Priority Date/Time Associated Diagnosis Comments COMPREHENSIVE METABOLIC PANEL Routine 01/27/2019 10:40 AM CDT Anxiety Primary insomnia Recurrent major depressive disorder, in partial remission CBC W/DIFF AUTOMATED Routine 01/27/2019 10:40 AM CDT Anxiety Primary insomnia Recurrent major depressive disorder, in partial remission documented in this encounter Results * COMPREHENSIVE METABOLIC PANEL (01/27/2019 10:40 AM CDT) GLUCOSE 76 65 - 99 mg/dL [facility] Comment: ? Fasting reference interval BUN 24 7 - 25 mg/dL [facility] CREATININE S/P/B 0.72 0.50 - 1.05 mg/dL [facility] Comment: For patients >49 years of age, the reference limit for Creatinine is approximately 13% higher for people identified as -Bulgarian. EGFR NON-AFR. AMER. 98 > OR = 60 mL/min/1 .73m2 [facility] EGFR AFR. AMER. 113 > OR = 60 mL/min/1 .73m2 [facility] BUN CREATININE RATIO NOT APPLICABLE 6 - 22 (calc) [facility] SODIUM S/P/B 138 135 - 146 mmol/L [facility] POTASSIUM S/P/B 4.3 3.5 - 5.3 mmol/L [facility] CHLORIDE S/P/B 102 98 - 110 mmol/L [facility] CO2 29 20 - 32 mmol/L [facility] CALCIUM S/P/B 9.6 8.6 - 10.4 mg/dL [facility] TOTAL PROTEIN S/P/B 6.8 6.1 - 8.1 g/dL [facility] ALBUMIN S/P/B 3.8 3.6 - 5.1 g/dL [facility] GLOBULIN 3.0 1.9 - 3.7 g/dL (calc) [facility] ALBUMIN/GLOBULIN RATIO 1.3 1.0 - 2.5 (calc) [facility] BILIRUBIN TOTAL (FLUID) 0.2 0.2 - 1.2 mg/dL [facility] ALK PHOS 88 33 - 130 U/L [facility] AST 16 10 - 35 U/L [facility] ALT 18 6 - 29 U/L [facility] 01/27/2019 10:4 0 AM CDT 01/28/2019 6:29 AM CDT Narrative Resulting Agency Comment Performing Organization Information: ?Site ID: [id number] ?Name: [facility] ?Address: [address] [id number] ?Director: Servando Cervantes D.O., MPH us Keyonna [facility] Final Resul t [facility] * (ABNORMAL) CBC W/DIFF AUTOMATED (01/27/2019 10:40 AM CDT) WBC 13.0(H) 3.8 - 10.8 Thousand/ uL [facility] RBC 4.73 3.80 - 5.10 Million/u L [facility] HGB 13.6 11.7 - 15.5 g/dL [facility] HCT 41.9 35.0 - 45.0 % [facility] MCV 88.6 80.0 - 100.0 fL [facility] MCH (QHPE) 28.8 27.0 - 33.0 pg [facility] MCHC 32.5 32.0 - 36.0 g/dL [facility] RDW (QHPE) 14.6 11.0 - 15.0 % [facility] PLT 427(H) 140 - 400 Thousand/ uL [facility] MPV 10.0 7.5 - 12.5 fL [facility] ABS. NEUTROPHILS 7,501 1,500 - 7,800 cells/uL [facility] ABS. LYMPHOCYTES 3,939(H) 850 - 3,900 cells/uL [facility] ABS. MONOCYTES 1,274(H) 200 - 950 cells/uL [facility] ABS. EOSINOPHILS 208 15 - 500 cells/uL [facility] ABS. BASOPHILS 78 0 - 200 cells/uL [facility] SEG NEUTROPHILS 57.7 % [facility] LYMPHOCYTES 30.3 % [facility] MONOCYTES 9.8 % [facility] EOSINOPHILS 1.6 % [facility] BASOPHILS 0.6 % [facility] 01/27/2019 10:4 0 AM CDT 01/28/2019 6:29 AM CDT Narrative Resulting Agency Comment Performing Organization Information: ?Site ID: [id number] ?Name: [facility] ?Address: [address] [id number] ?Director: Servando Cervantes D.O., MPH Keyonna [facility] Final Resul t [facility] documented in this encounter Visit Diagnoses Diagnosis Recurrent major depressive disorder, in partial remission (CMS/HCC)- Primary Anxiety Anxiety state, unspecified Primary insomnia Persistent disorder of initiating or maintaining sleep documented in this encounter Additional Health Concerns Assessment Noted Time PHQ-9 Depression Total Score: 12 019 9:59 AM CDT documented as of this encounter Care Teams Control Officer Manager Relationship Specialty Start Date End Date Keyonna Armstrong APNP [address] [place] [address] PCP - General NURSE PRACTITIONER 05/06/18 documented as of this encounter
--- OUTSIDE RECORDS SUMMARY | 2024-07-10 23:00 | XMS_ITS | Encounter Summary ---
Author Organization [facility] Address [address] [place] [address]. [place], [place] [address] [place] [address] Care Team Providers Care Sap Hana Developer Name Role Phone Keyonna Armstrong Primary Care Provider +1 [phone] Reason for Visit * Reason Comments Lab (SCAN) Encounter Details Date Type Department Care Team (Latest Contact Info) Description 01/15/2019 Scan HEALTH INFO SRVCS Scanned, Documents Lab [...] CDT Gender Identity Female 07/17/2022 10:27 AM COLLEGE PHYSICS INSTRUCTOR Sexual Orientation Straight 07/17/2022 10 :27 AM COLLEGE PHYSICS INSTRUCTOR documented as of this encounter Plan of Treatment Upcoming Encounters Date Type Department Care Team (Late st Contact Info) Description 07/25/2024 10:00 AM COLLEGE PHYSICS INSTRUCTOR Office Visit [facility] Medical [facility] Family & Internal Medicine - [address] [address] Keyonna Armstrong APNP [facility] [place] [place] [address] 07/31/2024 10:15 AM COLLEGE PHYSICS INSTRUCTOR Office [facility] [address] [place] [address] Pepe Mitchell MD [facility]. [facility] [address] [place] [address] documented as of this encounter Procedures Procedure Name Priority Date/Time Associated Diagnosis Comments OUTSIDE LAB (SCAN ORDER) Routine 01/15/2019 documented in this encounter Results * OUTSIDE LAB (01/15/2019) 01/15/2019 us Documents Scanned SCANNING Edited Result - Final [facility] [address] [address] documented in this encounter Visit Diagnoses Not on filedocumented in this encounter Additional Health Concerns Assessment Noted Time PHQ-9 Depression Total Score: 12 019 9:59 AM CDT documented as of this encounter Care Teams Sap Hana Developer Relationship Specialty Start Date End Date Keyonna Armstrong APNP [facility] [place] [address] PCP - General NURSE PRACTITIONER 05/06/18 documented as of this encounter
--- OUTSIDE RECORDS SUMMARY | 2024-07-10 23:00 | XMS_ITS | Encounter Summary ---
Author Organization [facility] Address [address] [place] [address]. [place] [phone] [place] [address] Care Team Providers Care Doping Supervisor Name Role Phone Keyonna Armstrong Primary Care Provider +1 [phone] Reason for Visit * Reason Onset Date Comments Advise 07/25/2019 Encounter Details Date Type Department Care Team (Late st Contact Info) Description 07/25/2019 Telephone [facility] Medical Group Family & Internal Medicine [facility] [address] [place] [address] Keyonna Armstrong APNP [address] [place] [address] Advise Social History Tobacco Use Types Packs/Day Years [...] CDT Gender Identity Female 07/17/2022 10:27 AM HOUSING PROPERTY MANAGER Sexual Orientation Straight 07/17/2022 10 :27 AM HOUSING PROPERTY MANAGER documented as of this encounter Progress Notes * Sherlyn Omalley RN - 07/28/2019 9:41 AM CST Spoke to patient's , Miguel; verbalized understanding. ING PROPERTY MANAGER * Zita Cook MA - 07/25/2019 4:02 PM CST [facility] 07/25/2019 Keyonna mentioned patient should calll and try to get in with Anaid Nguyen, ANP (psychiatry) may be able to get patient in quickly. [phone]. ING PROPERTY MANAGER * YOBANI Cruz - 07/25/2019 3:53 PM CST Pt is not taking meds as prescribed. I will do a short fill of #15, no refills. She is not taking these as prescribed. Taking these meds not as prescribed is a breech of the controlled substance contract. We can discuss this further at her follow up appt on Sunday. Also---she can look on her insurance card/website for a list of mental health providers. ING PROPERTY MANAGER * Zita Cook MA - 07/25/2019 2:52 PM CST Miguel informed and v/u. Patient is also asking for a refill of Lorazepam. She states that 15 pills will last her until Sunday. rx pend for approval Last filled 07/09/2019 [facility] ING PROPERTY MANAGER * YOBANI Cruz - 07/25/2019 2:18 PM CST She needs to follow up or go to ER over weekend if symptoms worsen. ING PROPERTY MANAGER * Lupe Dorado - 07/25/2019 9:40 AM CST Patient's called in asking what he needs to do for his . He wanted this patient to be seen today but all providers are full. He stated that she is super depressed, having hot flashes, fatigue, nausea, and high anxiety. He also stated that she has been taking more of her lorazepam then she is supposed to because she is so depressed/anxious. He also mentioned that they do not think that rexulti is working and causing these issues. She has started to wean her self off of this medication but the spouse is worried that she is not doing thiscorrectly. ING PROPERTY MANAGER documented in this encounter Plan of Treatment Upcoming Encounters Date Type Department Care Team (Late st Contact Info) Description 07/25/2024 10:00 AM HOUSING PROPERTY MANAGER Office Visit [facility] Medical Group Family & Internal Medicine - [place] [address] [place] [address] Keyonna Armstrong APNP [address] [place] [address] 07/31/2024 10:15 AM HOUSING PROPERTY MANAGER Office [facility] [address] [place], [place] [address] Pepe Mitchell MD [facility]. [facility] [address] [place] [address] documented as of this encounter Visit Diagnoses Diagnosis Anxiety Anxiety state, unspecified documented in this encounter Additional Health Concerns Assessment Noted Time PHQ-9 Depression Total Score: 12 01/14/ 019 9:59 AM CDT documented as of this encounter Care Teams Doping Supervisor Relationship Specialty Start Date End Date Keyonna Armstrong APNP [facility] [place] [address] PCP - General NURSE PRACTITIONER 05/06/18 documented as of this encounter
--- OUTSIDE RECORDS SUMMARY | 2024-07-10 23:00 | XMS_ITS | Encounter Summary ---
Author Organization [facility] Address [address] [place] [address]. [place], [place] [address] [place] [address] Care Team Providers Care Sorter Packer Name Role Phone Keyonna Armstrong Primary Care Provider +1 [phone] Reason for Visit * Reason Onset Date Comments Pre-visit Gap Closure 01/07/2019 Encounter Details Date Type Department Care Team (Late st Contact Info) Description 01/07/2019 Telephone [facility] Family & Internal [facility] [address] [place] [address] Keyonna Armstrong APNP [address] [place] [address] Pre-visit Gap Closure Social History [...] Gender Identity Female 07/17/2022 10:27 AM MANAGER RETAIL SALES Sexual Orientation Straight 07/17/2022 10 :27 AM MANAGER RETAIL SALES documented as of this encounter Plan of Treatment Upcoming Encounters Date Type Department Care Team (Late st Contact Info) Description 07/25/2024 10:00 AM MANAGER RETAIL SALES Office Visit [facility] Family & Internal [place] [address] [place] [address] Keyonna Armstrong APNP [address] [place] [address] 07/31/2024 10:15 AM MANAGER RETAIL SALES Office [facility] [address] [place], [place] [phone] Pepe Mitchell MD Three [facility]. [facility] [address] [place] [address] documented as of this encounter Visit Diagnoses Not on filedocumented in this encounter Additional Health Concerns Assessment Noted Time PHQ-9 Depression Total Score: 23 12/24/ 019 9:51 AM CDT documented as of this encounter Care Teams Sorter Packer Relationship Specialty Start Date End Date Keyonna Armstrong APNP [address] [place] [address] PCP - General NURSE PRACTITIONER 05/06/18 documented as of this encounter
--- OUTSIDE RECORDS SUMMARY | 2024-07-10 23:00 | XMS_ITS | Encounter Summary ---
Author Organization [facility] Address [address] [place] [address]. [place], [place] [address] [place] [address] Care Team Providers Care Critical Systems Technician Name Role Phone Keyonna Armstrong Primary Care Provider [phone] Reason for Visit * Reason Onset Date Comments Forms 08/12/2019 Encounter Details Date Type Department Care Team (Late st Contact Info) Description 08/12/2019 Telephone [facility] Medical Group Family & Internal Medicine [facility] [address] [place] [address] Keyonna Armstrong APNP [address] [place] [address] Forms Social History Tobacco Use Types Packs/Day Years [...] CDT Gender Identity Female 07/17/2022 10:27 AM DECORATOR CONSULTANT Sexual Orientation Straight 07/17/2022 10 :27 AM DECORATOR CONSULTANT documented as of this encounter Progress Notes * Nenita Young MA - 08/12/2019 5:37 PM CST Patient notified and although not happy she v/u RATOR CONSULTANT * YOBANI Cruz - 08/12/2019 5:22 PM CST I was able to go back through her Megan's old charts and she does not have any of the diagnoses that she listed to include rheumatoid arthritis, migraines or PTSD. There is an old knee x-ray from 2015 that shows minimal degenerative changes which could possibly some osteoarthritis. However, ostial arthritis is not a diagnosis that is a qualifying diagnosis in this cannabis program. Of the diagnoses that she mentioned rheumatoid arthritis is the only qualifying diagnoses and I have no indication that she has rheumatoid arthritis. At this time, I am unable to sign or have my collaborating physician sign this paperwork. I am very sorry. RATOR CONSULTANT * Indy Kang - 08/12/2019 1:41 PM CST Pts calling in asking if there is any way for one of the doctors in the office to fill out the medical marijuana form for Veronica. He said she is very upset and beside herself since she thought Keyonna would be able to fill it out. They are just asking if something else can be done about it. RATOR CONSULTANT documented in this encounter Plan of Treatment Upcoming Encounters Date Type Department Care Team (Late st Contact Info) Description 07/25/2024 10:00 AM DECORATOR CONSULTANT Office Visit [facility] Medical Group Family & Internal Medicine - [place] [address] [place] [address] Keyonna Armstrong APNP [address] [place] [address] 07/31/2024 10:15 AM DECORATOR CONSULTANT Office Visit [facility] [address] [place] [address] Pepe Mitchell MD [facility]. [place] [address] [place] [address] documented as of this encounter Visit Diagnoses Not on filedocumented in this encounter Additional Health Concerns Assessment Noted Time PHQ-9 Depression Total Score: 22 07/29/ 020 3:46 PM DECORATOR CONSULTANT documented as of this encounter Care Teams Critical Systems Technician Relationship Specialty Start Date End Date Keyonna Armstrong APNP [address] [place] [address] PCP - General NURSE PRACTITIONER 05/06/18 documented as of this encounter
--- OUTSIDE RECORDS SUMMARY | 2024-07-10 23:00 | XMS_ITS | Encounter Summary ---
Author Organization [facility] Address [address] [place] [address]. [place], [place] [address] [place] [address] Care Team Providers Care Eyeglass Lens Grinder Name Role Phone Keyonna Armstrong Primary Care Provider [phone] Reason for Visit * Reason Onset Date Comments Results 07/31/2019 Encounter Details Date Type Department Care Team (Late st Contact Info) Description 07/31/2019 Telephone [facility] Medical Group Family & Internal Medicine [facility] [address] [place] [address] Keyonna Armstrong APNP [address] [place] [address] Results Social History Tobacco Use [...] Gender Identity Female 07/17/2022 10:27 AM MEDICAL SALES CONSULTANT Sexual Orientation Straight 07/17/2022 10 :27 AM MEDICAL SALES CONSULTANT documented as of this encounter Progress Notes * Indy Kang - 08/04/2019 7:41 AM CST Started welbutrin yesterday, so far so good. rexulti is completely out of system. She says she feels clearer in her head, not as much depression she is noticing. She is hopeful this is going to be much better. She sounded positive and was looking forward to follow up appt on 08/06 with CAL SALES CONSULTANT * Marcella Alvarenga MA - 08/01/2019 7:55 AM CST LMTC 08/01/18 CAL SALES CONSULTANT * Marcella Alvarenga MA - 08/01/2019 7:54 AM CST ----- Message from YOBANI Cruz sent at 07/31/2019 6:24 PM MEDICAL SALES CONSULTANT ----- Let patient know that her CBC was [...] she is feeling and let me know. CAL SALES CONSULTANT * YOBANI Cruz - 07/31/2019 6:45 PM CST Please let pt know I have placed an urgent cardiology referral as well to eval her elevated HR. CAL SALES CONSULTANT documented in this encounter Plan of Treatment Upcoming Encounters Date Type Department Care Team (Late st Contact Info) Description 07/25/2024 10:00 AM MEDICAL SALES CONSULTANT Office Visit [facility] Medical Group Family & Internal Medicine - [place] [address] [place] [address] Keyonna Armstrong APNP [address] [place], [place] [id number] 07/31/2024 10:15 AM MEDICAL SALES CONSULTANT Office Visit [facility] THREE [facility] [address] [place] [address] Pepe Mitchell MD Three [facility]. [facility] [address] [place] [address] documented as of this encounter Visit Diagnoses Not on filedocumented in this encounter Additional Health Concerns Assessment Noted Time PHQ-9 Depression Total Score: 22 020 3:46 PM MEDICAL SALES CONSULTANT documented as of this encounter Care Teams Eyeglass Lens Grinder Relationship Specialty Start Date End Date Keyonna Armstrong APNP [address] [place] [address] PCP - General NURSE PRACTITIONER 05/06/18 documented as of this encounter
--- OUTSIDE RECORDS SUMMARY | 2024-07-10 23:00 | XMS_ITS | Encounter Summary ---
Author Organization [facility] Address [address] [place] [address]. [place], [place] [address] [place] [address] Care Team Providers Care License Examiner Name Role Phone Keyonna Armstrong Primary Care Provider [phone] Reason for Visit * Reason Onset Date Comments Prior Authorization 01/01/2019 Encounter Details Date Type Department Care Team (Late st Contact Info) Description 01/01/2019 Telephone [facility] Medical Group Family & Internal Medicine [facility] [address] [place] [phone] Keyonna Armstrong APNP [address] [place], [place] [phone] Prior Authorization Social History Tobacco Use Types Packs/Day Years [...] CDT Gender Identity Female 07/17/2022 10:27 AM GRATED CHEESE MAKER Sexual Orientation Straight 07/17/2022 10 :27 AM GRATED CHEESE MAKER documented as of this encounter Progress Notes * Sherlyn Omalley RN - 01/01/2019 11:03 AM CDT rx sent. * Shlomo Riggs DO - 01/01/2019 9:25 AM CDT That's fine. * Sherlyn Omalley RN - 01/01/2019 9:22 AM CDT PA for Rexulti 0.5mg tab was denied because your drug is a specialty drug. Youre prescription drugguide says that specialty drugs are limited to a 30 day supply. Ok to send a 30 day supply. documented in this encounter Plan of Treatment Upcoming Encounters Date Type Department Care Team (Late st Contact Info) Description 07/25/2024 10:00 AM GRATED CHEESE MAKER Office Visit [facility] Medical Group Family & Internal Medicine - [place] [address] [place] [address] Keyonna Armstrong APNP [address] [place] [address] 07/31/2024 10:15 AM GRATED CHEESE MAKER Office Visit [facility] THREE [facility] [place] [address] [place], [place] [address] Pepe Mitchell MD Three [facility]. [facility] [address] [place] [address] documented as of this encounter Visit Diagnoses Diagnosis Recurrent major depressive disorder, in partial remission (CMS/HCC) documented in this encounter Additional Health Concerns Assessment Noted Time PHQ-9 Depression Total Score: 23 019 9:51 AM CDT documented as of this encounter Care Teams License Examiner Relationship Specialty Start Date End Date Keyonna Armstrong APNP [address] [place] [address] PCP - General NURSE PRACTITIONER 10/15/18 documented as of this encounter
--- OUTSIDE RECORDS SUMMARY | 2024-07-10 23:01 | XMS_ITS | Encounter Summary ---
Author Organization [facility] Address [address] [place] [address]. [place], [place] [address] [place] [address] Care Team Providers Care Cellar Pumper Name Role Phone Royer Hidalgo MD Primary Care Provider [phone] Royer Hidalgo MD Primary Care Provider [phone] Encounter Details Date Type Department Care Team (Latest Contact Info) Description 09/17/2015 Abstract [facility] Medical Group Social History Tobacco Use Types Packs/Day Years Used Date Smoking Tobacco: Never Assessed Comments Unknown Sex and Gender Information Value Date Recorded Sex Assigned at Not on file Legal Sex Female 5:47 PM CDT Gender Identity Female 07/17/2022 10:27 AM INFORMATICA MDM DEVELOPER Sexual Orientation Straight 07/17/2022 10 :27 AM INFORMATICA MDM DEVELOPER documented as of this encounter Miscellaneous Notes * Letter - Claudia Gaines Md, MD - 09/17/2015 8:16 AM CST 09/17/2015 Dear Ms. Evangelista, Upon reviewing records, we see that you are due and/or overdue for lab work or an ordered test. Please follow-up immediately to complete the order. If you have fulfilled the order at a facility outside of our office, please bring a copy of the results to the office at your earliest convenience. Should you have any questions, please contact the office at [phone]. Sincerely, Your Healthcare Team at [facility] Electronically signed by:Ata Adkins Sep 17 2015 8:16AM INFORMATICA MDM DEVELOPER Author documented in this encounter Plan of Treatment Upcoming Encounters Date Type Department Care Team (Late Contact Info) Description 07/25/2024 10:00 AM INFORMATICA MDM DEVELOPER Office Visit [facility] Medical Group Family & Internal Medicine - [place] [address] [place] [address] Keyonna Armstrong APNP [address] [place] [address] 07/31/2024 10:15 AM INFORMATICA MDM DEVELOPER Office Visit [facility] THREE [facility] [address] [place] [address] Pepe Mitchell MD Three [facility]. [facility] [address] [place], [place] [id number] documented as of this encounter Visit Diagnoses Not on filedocumented in this encounter Care Teams Cellar Pumper Relationship Specialty Start Date End Date Royer Hidalgo MD PCP - General 04/25/16 09/14/16 Royer Hidalgo MD PCP - General 05/14/15 04/24/16 documented as of this encounter
--- OUTSIDE RECORDS SUMMARY | 2024-07-10 23:01 | XMS_ITS | Encounter Summary ---
Author Organization [facility] Address [address] [place] [address]. [place], [place] [address] [place] [address] Care Team Providers Care Clerical Administrator Name Role Phone Keyonna Armstrong Primary Care Provider [phone] Encounter Details Date Type Department Care Team (Latest Contact Info) Description 06/20/2018 Scan HEALTH INFO SRVCS Scanned, Documents Social [...] CDT Gender Identity Female 07/17/2022 10:27 AM SIFTER AND MILLER Sexual Orientation Straight 07/17/2022 10 :27 AM SIFTER AND MILLER documented as of this encounter Plan of Treatment Upcoming Encounters Date Type Department Care Team (Late st Contact Info) Description 07/25/2024 10:00 AM SIFTER AND MILLER Office Visit [facility] Medical Group Family & Internal Medicine - [place] [address] [place] [address] Keyonna Armstrong APNP [address] [place] [address] 07/31/2024 10:15 AM SIFTER AND MILLER [facility] [address] [address] Pepe Mitchell MD Three [facility]. [facility] [address] [place] [address] documented as of this encounter Visit Diagnoses Not on filedocumented in this encounter Care Teams Clerical Administrator Relationship Specialty Start Date End Date Keyonna Armstrong APNP [address] [place] [address] PCP - General NURSE PRACTITIONER 05/06/18 documented as of this encounter
--- OUTSIDE RECORDS SUMMARY | 2024-07-10 23:01 | XMS_ITS | Encounter Summary ---
Author Organization [facility] Address [address] [place] [address]. [place], [place] [address] [place] [address] Care Team Providers Care Code Enforcement Officer Name Role Phone Royer Hidalgo MD Primary Care Provider Encounter Details Date Type Department Care Team (Latest Contact Info) Description 04/26/2016 Abstract [facility] Medical Group Social History Tobacco Use Types Packs/Day Years Used Date Smoking Tobacco: Never Assessed Comments Unknown Sex and Gender Information Value Date Recorded Sex Assigned at Not on file Legal Sex Female 5:47 PM CDT Gender Identity Female 07/17/2022 10:27 AM AGRICULTURAL APPRAISER Sexual Orientation Straight 07/17/2022 10 :27 AM AGRICULTURAL APPRAISER documented as of this encounter Progress Notes * Royer Hidalgo MD - 04/26/2016 5:49 AM CDT Message David Martin, Here are your lab results and everything looks good! There are a few values that fall slightly outside the normal range, but none of these are worrisome. Your urinalysis was also normal (not printed), no signs of infection. PLease let us know if you have any questions. Take care, Dr. Hidalgo Verified Results CBC W Differential 25Apr2016 11:50AM Royer Hidalgo Test Name Result Flag Reference WBC 12.1 X10'3/uL H 4.8-10.8 RBC 4.88 X10'6/uL 4.20-5.40 Hemoglobin (HGB) 15.1 g/dL 12.0-16.0 Hematocrit (HCT) 47.1 % 38.0-48.0 Mean Corpuscular Volume (MCV) 96.5 fL 81.0-99.0 Mean Corpuscular Hgb (MCH) 30.9 pg 27.0-31.0 Mean Corpuscular Hgb Conc (MCH 32.1 g/dL 32.0-36.0 RDW 13.8 % 11.5-14.5 PLATELET COUNT 336 X10'3/uL 130-400 Mean Platelet Volume (MPV) 10.4 fL 9.3-12.2 Differential Type AUTOMATED NEUTROPHILS 63.7 % 43.0-65.0 Lymphocytes % (Auto) 26.3 % 20.0-46.0 MONOCYTES 8.5 % 5.0-12.0 Eosinophils % (Auto) 0.7 % L 1.0-3.0 Basophils % (Auto) 0.6 % 0.0-1.0 IMMATURE GRANULOCYTES 0.2 % 0.0-1.0 Compr Metabolic Prof ( CMP ) 25Apr2016 11:50AM Royer Hidalgo Test Name Result Flag Reference Glucose 89 mg/dL 70-99 Blood Urea Nitrogen (BUN) 10 mg/dL 8-23 Creatinine 0.74 mg/dL 0.60-1.10 Sodium (Na) 134 mmol/L L 136-145 Potassium (K) 4.6 mmol/L 3.5-5.1 Chloride (Cl) 93 mmol/L L 98-107 Carbon Dioxide (CO2) 26 mmol/L 22-29 Total Bilirubin 0.3 mg/dL 0.2-1.2 Calcium 9.8 mg/dL 8.6-10.2 Alkaline Phosphatase (ALKP) 74 U/L 35-104 AST/GOT 16 U/L 0-32 Total Protein 7.4 g/dL 6.4-8.3 Albumin 4.4 g/dL 3.5-5.2 ALT/GPT 15 U/L 0-33 Globulin, Calc 3.0 g/dL 2.3-3.6 A:G Ratio 1.5 1.0-2.0 Anion Gap 20 8-20 Glomerular Filt Rate Calc >60 mL/min/1.73m'2 >60 Glomerular Filt Rate (AA) Calc >60 >60 NOTE: eGFR is not calculated for patients <18 years of age. This is an estimated GFR (CKD EPI) and should not be used for calculating drug doses. mL/min/1.73m'2 Lipid Profile 25Apr2016 11:50AM Royer Hidalgo Test Name Result Flag Reference CHOLESTEROL 163 MG/DL <200 NOTE: Acetaminophen, N Acetyl p benzoquinone imine (NAPQI), N acetylcysteine (NAC), Metamizole, 4 Aminoantipyrine (4 AAP) and 4 Methylamino antipyrine (4 MAP) at high concentrations can cause falsely low results on Lactate, Uric Acid, Cholesterol, Triglyceride, HDL, and Direct LDL. TRIGLYCERIDE 217 MG/DL H <150 HDL CHOLESTEROL 43 MG/DL L >59 LDL CALCULATED 77 MG/DL <100 Non HDL, Calc 120 MG/DL <130 NOTE: WHEN THE TRIGLYCERIDES ARE >200 mg/dL, NON HDL C IS A SECONDARY TARGET OF THERAPY, WITH A GOAL 30 mg/dL HIGHER THAN THE IDENTIFIED LDL C GOAL. CHOL/HDL RATIO 3.8 0.0-4.5 VLDL Cholesterol 43 MG/DL 5-55 Lipid Profile Comment 1 (Report) NIH CONCENSUS REPORT RECOMMENDATIONS: ADULT CHILD LOW RISK: CHOLESTEROL <200 <170 TRIGLYCERIDE <150 --- HDL >=60 --- LDL <100 <110 BORDERLINE: CHOLESTEROL 200-239 170-199 TRIGLYCERIDE 150-199 --- HDL 40-59 --- LDL 100-159 110-129 HIGH RISK: CHOLESTEROL >=240 >=200 TRIGLYCERIDE >=200 --- HDL <40 --- LDL >=160 >=130 TSH W Reflex Free T4 25Apr2016 11:50AM Royer Hidalgo Test Name Result Flag Reference TSH w Reflex Free T4 1.21 mIU/mL 0.27-4.20 FREE T4 NOT INDICATED Hemoglobin A1C ( HA1C ) 25Apr2016 11:50AM RockyRoyer clinton Test Name Result Flag Reference Hemoglobin A1c 5.3 % 4.8-5.6 ADA GUIDELINES 2010 5.7 TO 6.4% INCREASED RISK OF DIABETES > OR = 6.5% CONSISTENT WITH DIABETES Estimated Average Glucose 105 mg/dL Discussion/Summary David Martin, Here are your lab results and everything looks good! There are a few values that fall slightly outside the normal range, but none of these are worrisome. Your urinalysis was also normal (not printed), no signs of infection. PLease let us know if you have any questions. Take care, Dr. Hidalgo documented in this encounter Plan of Treatment Upcoming Encounters Date Type Department Care Team (Late st Contact Info) Description 07/25/2024 10:00 AM AGRICULTURAL APPRAISER Office Visit [facility] Medical Group Family & Internal Medicine - [place] [address] [place] [address] Keyonna Armstrong APNP [address] [place] [address] 07/31/2024 10:15 AM AGRICULTURAL APPRAISER Office Visit [facility] THREE [facility] [address] [place], [place] [address] Pepe Mitchell MD Three [facility]. [facility] [address] [place], [place] [id number] documented as of this encounter Visit Diagnoses Not on filedocumented in this encounter Care Teams Code Enforcement Officer Relationship Specialty Start Date End Date Royer Hidalgo MD PCP - General 04/25/16 09/14/16 documented as of this encounter
--- OUTSIDE RECORDS SUMMARY | 2024-07-10 23:01 | XMS_ITS | Encounter Summary ---
Author Organization [facility] Address [address] [place] [address]. [place], [place] [address] [place] [address] Care Team Providers Care Hairspring Vibrator Name Role Phone Unavailable Primary Care Provider Unavailabl e Encounter Details Date Type Department Care Team (Latest Contact Info) Description 11/08/2017 Abstract [facility] Medical Group , Claudia Gaines MD Social History Tobacco Use Types Packs/Day Years Used Date Smoking Tobacco: Never Assessed Comments Unknown Sex and Gender Information Value Date Recorded Sex Assigned at Not on file Legal Sex Female 5:47 PM CDT Gender Identity Female 07/17/2022 10:27 AM WORSTED WINDER Sexual Orientation Straight 07/17/2022 10 :27 AM WORSTED WINDER documented as of this encounter Progress Notes * Claudia Gaines Md, MD - 11/08/2017 12:54 PM CDT Message Recorded as Task Date: 11/08/2017 09:17 AM, Created By: Flora Blackwell Task Name: Medical Complaint Callback Assigned To: [facility] Nurse Team Regarding Patient: Veronica Evangelista, Status: Active Comment: Flora Blackwell - 08 Nov 2017 9:17 AM TASK CREATED Patient has appointment with [facility] 11-13-17 and wanted you to know. requesting refill on zolpidem Keyonna Armstrong - 08 Nov 2017 9:23 AM TASK REASSIGNED: Previously Assigned To Keyonna Armstrong OK to fill zolpidem----- Message: noted-refill sent to pharmacy -sjs Signatures Electronically signed by : Nenita Young MA; Nov 08 2017 12:54PM WORSTED WINDER (Author) documented in this encounter Plan of Treatment Upcoming Encounters Date Type Department Care Team (Late st Contact Info) Description 07/25/2024 10:00 AM WORSTED WINDER Office Visit [facility] Medical Group Family & Internal Medicine - [place] [address] [place] [address] Keyonna Armstrong APNP [address] [place] [address] 07/31/2024 10:15 AM WORSTED WINDER Office Visit [facility] THREE [facility] [address] [place], [place] [address] Pepe Mitchell MD Three [facility]. [facility] [address] [place] [address] documented as of this encounter Visit Diagnoses Not on filedocumented in this encounter
--- OUTSIDE RECORDS SUMMARY | 2024-07-10 23:01 | XMS_ITS | Encounter Summary ---
Author Organization [facility] Address [address] [place] [address]. [place] [id number] [place] [address] Care Team Providers Care It Solutions Sales Consultant Name Role Phone Keyonna Armstrong Primary Care Provider [phone] Reason for Visit * Reason Onset Date Comments Refill Request 09/25/2018 Encounter Details Date Type Department Care Team (Late st Contact Info) Description 09/25/2018 Telephone [facility] Medical Group Family & Internal Medicine [facility] [address] [place] [address] Keyonna Armstrong APNP [address] [place], [place] [phone] Refill Request Social History Tobacco Use Types [...] CDT Gender Identity Female 07/17/2022 10:27 AM PRINT LINE SUPERVISOR Sexual Orientation Straight 07/17/2022 10 :27 AM PRINT LINE SUPERVISOR documented as of this encounter Progress Notes * Sherlyn Omalley RN - 09/25/2018 1:39 PM CST rx for enpressa. Refilled. T LINE SUPERVISOR documented in this encounter Plan of Treatment Upcoming Encounters Date Type Department Care Team (Late st Contact Info) Description 07/25/2024 10:00 AM PRINT LINE SUPERVISOR Office Visit [facility] Medical Group Family & Internal Medicine - [place] [address] [place] [address] Keyonna Armstrong APNP [address] [place] [address] 07/31/2024 10:15 AM PRINT LINE SUPERVISOR Office Visit [facility] THREE [facility] [address] [place] [address] Pepe Mitchell MD [facility]. [facility] [address] [place], [place] [address] documented as of this encounter Visit Diagnoses Diagnosis Menorrhagia Excessive or frequent menstruation documented in this encounter Care Teams It Solutions Sales Consultant Relationship Specialty Start Date End Date Keyonna Armstrong APNP [facility] [place] [address] PCP - General NURSE PRACTITIONER 05/06/18 documented as of this encounter
--- OUTSIDE RECORDS SUMMARY | 2024-07-10 23:01 | XMS_ITS | Encounter Summary ---
Author Organization [facility] Address [address] [place] [address]. [place], [place] [id number] [place] [address] Care Team Providers Care Dog Raiser Name Role Phone Unavailable Primary Care Provider Unavailabl e Encounter Details Date Type Department Care Team (Latest Contact Info) Description 01/24/2017 Abstract [facility] Social History Tobacco Use Types Packs/Day Years Used Date Smoking Tobacco: Never Assessed Comments Unknown Sex and Gender Information Value Date Recorded Sex Assigned at Not on file Legal Sex Female 5:47 PM CDT Gender Identity Female 07/17/2022 10:27 AM HOSE MAKER Sexual Orientation Straight 07/17/2022 10 :27 AM HOSE MAKER documented as of this encounter Progress Notes * Royer Hidalgo MD - 01/24/2017 4:04 PM CDT Message Message: Pharmacy calling stating that they never received Rx. Called in Rx. and notified pt. Signatures Electronically signed by : Royer Hidalgo M.D.; Jan 24 2017 4:20PM HOSE MAKER (Author) documented in this encounter Plan of Treatment Upcoming Encounters Date Type Department Care Team (Late st Contact Info) Description 07/25/2024 10:00 AM HOSE MAKER Office Visit [facility] Medical [facility] Family & Internal Medicine - [address] [phone] Keyonna Armstrong APNP [address] [place] [address] 07/31/2024 10:15 AM HOSE MAKER Office Visit [facility] [address] [place], [place] [id number] Pepe Mitchell MD [facility]. [facility] [address] [place] [address] documented as of this encounter Visit Diagnoses Not on filedocumented in this encounter
--- OUTSIDE RECORDS SUMMARY | 2024-07-10 23:01 | XMS_ITS | Encounter Summary ---
Author Organization [facility] Address [facility]. [place], [place] [address] [place] [address] Care Team Providers Care Sandwich Artist Name Role Phone Unavailable Primary Care Provider Unavailabl e Encounter Details Date Type Department Care Team (Late st Contact Info) Description 09/20/2017 Abstract [facility] Medical Group Family & Internal Medicine [id number] [place] [address] Keyonna Armstrong APNP [address] [place] [address] Social History Tobacco Use Types Packs/Day Years Used Date Smoking Tobacco: Never Assessed Comments Unknown Sex and Gender Information Value Date Recorded Sex Assigned at Not on file Legal Sex Female 5:47 PM CDT Gender Identity Female 07/17/2022 10:27 AM COATING INSPECTOR Sexual Orientation Straight 07/17/2022 10 :27 AM COATING INSPECTOR documented as of this encounter Last Filed Vital Signs Vital Sign Reading Time Taken Comments Blood Pressure 160/102 09/20/2017 11:38 AM COATING INSPECTOR Pulse 142 09/20/2017 11:38 AM COATING INSPECTOR Temperature - - Respiratory Rate - - Oxygen Saturation - - Inhaled Oxygen Concentration - - Weight 137.1 kg (302 lb 4 oz) 09/20/2017 11:38 A M COATING INSPECTOR Height 163.8 cm (5' 4.5) 09/20/2017 11:38 AM CS T Body Mass Index 51.08 09/20/2017 11:38 AM COATING INSPECTOR documented in this encounter Progress Notes * YOBANI Cruz - 09/20/2017 2:53 PM CST Verified Results *Influenza A + B Test In Office 20Sep2017 12:34PM Keyonna Armstrong Test Name Result Flag Reference Flu A Positive Flu B Negative Internal QC Verified Yes * YOBANI Cruz - 09/20/2017 11:20 AM CST Reason For Visit Chronic Recheck Visit Chief Complaint Patient is here to establish care and c/o feeling bad , cough and fatigue for the last 2 days History of Present Illness PHQ-9 Depression Questionnaire: Over the past 2 weeks, how often have you been bothered by the following problems? 1.) Little interest or pleasure in doing things? Not at all. 2.) Feeling down, depressed or hopeless? Not at all. 3.) Trouble falling asleep or sleeping too much? Several days. 4.) Feeling tired or having little energy? Half the days or more. 5.) Poor appetite or overeating? Not at all. 6.) Feeling bad about yourself, or that you are a failure, or have let yourself or your family down? Not at all. 7.) Trouble concentrating on things, such as reading a newspaper or watching television? Not at all. 8.) Moving or speaking so slowly that other people could have noticed, or the opposite, moving or speaking faster than usual? Not at all. 9.) Thoughts that you would be off or of hurting yourself in some way? Not at all. TOTAL SCORE: 3. HPI Free Text: Pt here today to get established with me. She states a couple of days ago, she started having fatigue, non-productive cough, occasional wheezing, body aches, fever, chills, headaches, sore throat, nasal congestion, nasal drainage, bilateral ear pain. She denies any chest pain or shortness of breath or pain with breathing or coughing. She has been self treating at home with mucinex, Nyquil, ibuprofen and tylenol. She is a new transfer pt being treated for depression and anxiety and is requesting a refill of herlorazepam if possible. Review of Systems Eyes, Gastrointestinal, Genitourinary, Musculoskeletal, Integumentary, Neurological, Endocrine and Hematologic review of systems normal except as noted. Constitutional: fever, chills and feeling poorly, but no recent weight loss. ENT: earache, nasal discharge and sore throat, but no hoarseness. Cardiovascular: palpitations, but no chest pain, no intermittent leg claudication and no lower extremity edema. Respiratory: cough and wheezing, but no shortness of breath and no shortness of breath during exertion. Psychiatric: sleep disturbances and depression, but not suicidal and no anxiety. Active Problems 1. Chronic insomnia (780.52) (F51.04) 2. Depression (311) (F32.9) 3. Dyslipidemia (272.4) (E78.5) 4. Esophageal reflux (530.81) (K21.9) 5. History of motion sickness (V13.89) (Z87.898) 6. Hypertension (401.9) (I10) 7. Impaired fasting glucose (790.21) (R73.01) 8. Morbid obesity (278.01) (E66.01) 9. Obstructive sleep apnea (327.23) (G47.33) 10. Right ovarian cyst (620.2) (N83.201) 11. Urinary retention (788.20) (R33.9) Surgical History 1. History of Gastric Surgery For Morbid Obesity Family History 1. Family history of Hypertension (V17.49) 2. Family history of Diabetes Mellitus (V18.0) 3. Family history of Stroke Syndrome (V17.1) Social History ?? Never a smoker Current Meds 1. Enpresse-28 Oral Tablet; TAKE 1 TABLET BY MOUTH EVERY DAY; Therapy: 30May2012 to (Evaluate:89Scy5364) Requested for: 10Mbh4249; Last Rx:[id number] Ordered 2. HydroCHLOROthiazide 25 MG Oral Tablet; TAKE ONE TABLET BY MOUTH EVERY DAY; Therapy: 20May2012 to (Evaluate:93Wwe6613) Requested for: 39Cdy0371; Last Rx:[id number] Ordered 3. Ibuprofen 800 MG Oral Tablet; TAKE 1 TABLET 3 TIMES DAILY WITH FOOD NEEDED for pain; Therapy: 11Aug2014 to (Evaluate:12May2016) Requested for: 15Slp6540; Last Rx:[id number] Ordered 4. LORazepam 0.5 MG Oral Tablet; TAKE 1 TABLET BY MOUTH 3 TIMES A DAY NEEDED; Therapy: 51Rtr6126 to (Evaluate:22Sep2017) Requested for: 93Xaz4768; Last Rx:[id number] Ordered 5. MetFORMIN HCl - 500 MG Oral Tablet; TAKE 1 TABLET BY MOUTH EVERY MORNING AND THEN TAKE 2 TABLETS AT BEDTIME; Therapy: 24Dec2011 to (Evaluate:19Oct2017) Requested for: 47Iyh5873; Last Rx:[id number] Ordered 6. Methocarbamol 750 MG Oral Tablet; TAKE 1 TO 2 TABLETS 3 TIMES DAILY NEEDED FOR MUSCLE SPASM; Therapy: 11Aug2014 to (Evaluate:81Ekt2249) Requested for: 66Rvo2537; Last Rx:[id number] Ordered 7. Metoprolol Succinate ER 100 MG Oral Tablet Extended Release 24 Hour; TAKE 1 TABLET DAILY; Therapy: 08May2017 to (Evaluate:64Ybm2812) Requested for: 08May2017; Last Rx:[id number] Ordered 8. Ondansetron 4 MG Oral Tablet Disintegrating; DISSOLVE 1-2 TABLETS ON TONGUE EVERY 8 HOURS NEEDED FOR NAUSEA ..PATIENT NEEDS APPOINTMENT; Therapy: 02Mar2015 to (Evaluate:25Nov2016) Requested for: 20Nov2016; Last Rx:[id number] Ordered 9. Pantoprazole Sodium 40 MG Oral Tablet Delayed Release; TAKE 1 TABLET EVERY DAY; Therapy: 08Jun2012 to (Evaluate:21Dec2017) Requested for: 04Rgc8670; Last Rx:[id number] Ordered 10. Polyethylene Glycol 3350 Oral Powder; MIX 1 CAPFUL (17GM) IN 8 OUNCES OF WATER, JUICE, OR TEA AND DRINK DAILY; Therapy: 27Ije8775 to (Evaluate:24Oct2017) Requested for: 27Apr2017; Last Rx:[id number] Ordered 11. Venlafaxine HCl ER 75 MG Oral Capsule Extended Release 24 Hour; TAKE ONE CAPSULE BY MOUTH EVERY MORNING AND TAKE 2 CAPSULES BY MOUTH EVERY EVENING; Therapy: 13May2012 to (Evaluate:72Vna6197) Requested for: 20Sep2017; Last Rx:[id number]; Status: ACTIVE - Renewal Denied Ordered 12. Zolpidem Tartrate 10 MG Oral Tablet; TAKE 1 TABLET AT BEDTIME NEEDED FOR INSOMNIA; Therapy: 76Onn9074 to (Evaluate:11Oct2017) Requested for: 12Szi7338; Last Rx:[id number] Ordered Allergies 1. No Known Drug Allergies Vitals Recorded: 20Sep2017 11:38AM Temperature 97.5 F Heart Rate 142 Respiration 18 Systolic 160 Diastolic 102 O2 Saturation 97 Height 5 ft 4.5 in Weight 302 lb 4 oz BMI Calculated 51.08 BSA Calculated 2.34 Physical Exam Constitutional General appearance: No acute distress, well appearing and well nourished. Eyes Conjunctiva and lids: No swelling, erythema or discharge. Pupils and irises: Equal, round and reactive to light. Ears, Nose, Mouth, and Throat External inspection of ears and nose: Normal. Otoscopic examination: Abnormal. slight redness noted to bilateral ear canal/TM. Oropharynx: Abnormal. erythema, no exudate.. Pulmonary Respiratory effort: No increased work of breathing or signs of respiratory distress. Auscultation of lungs: Abnormal. scattered rhonchi noted throughout lung white.. Cardiovascular Auscultation of heart: Abnormal. elevated HR, sinus tach. No acute changed noted.. Examination of extremities for edema and/or varicosities: Normal. Abdomen Abdomen: Non-tender, no masses. Lymphatic Palpation of lymph nodes in neck: No lymphadenopathy. Musculoskeletal Gait and station: Normal. Skin Skin and subcutaneous tissue: Normal without rashes or lesions. Psychiatric Orientation to person, place, and time: Normal. Mood and affect: Normal. Counseling The patient was counseled regarding diagnostic results, instructions for management, risk factor reductions, prognosis, patient and family education, impressions, risks and benefits of treatment options and importance of compliance with treatment. total time of encounter was 40 minutes and 30 minutes was spent counseling. Assessment 1. Hypertension (401.9) (I10) 2. Influenza A (487.1) (J10.1) 3. Cough (786.2) (R05) 4. Acute URI (465.9) (J06.9) 5. Anxiety (300.00) (F41.9) 6. Depression (311) (F32.9) 7. Sinus tachycardia (427.89) (R00.0) Plan Acute URI 1. Call if: The cough is not gone in 10 days.; Status:Complete; Done: 20Sep2017 Ordered; For:Acute URI; Ordered By:Keyonna Armstrong; 2. Avoid [id number] cold remedies unless recommended by us.; Status:Complete; Done: 20Sep2017 Ordered; For:Acute URI; Ordered By:Keyonna Armstrong; 3. Call if: The fever comes back after being normal for 2 days.; Status:Complete; Done: 20Sep2017 Ordered; For:Acute URI; Ordered By:Keyonna Armstrong; 4. Good hand washing is one of the best ways to control the spread of germs.; Status:Complete; Done: 20Sep2017 Ordered; For:Acute URI; Ordered By:Keyonna Armstrong; 5. Call if: The symptoms are not better in 7 days.; Status:Complete; Done: 20Sep2017 Ordered; For:Acute URI; Ordered By:Keyonna Armstrong; 6. How to use a nasal spray.; Status:Complete; Done: 20Sep2017 Ordered; For:Acute URI; Ordered By:Keyonna Armstrong; 7. Call if: The symptoms seem worse.; Status:Complete; Done: 20Sep2017 Ordered; For:Acute URI; Ordered By:Keyonna Armstrong; 8. Irrigate your nose twice a day.; Status:Complete; Done: 20Sep2017 Ordered; For:Acute URI; Ordered By:Keyonna Armstrong; 9. Call if: You have pain in your ear.; Status:Complete; Done: 20Sep2017 Ordered; For:Acute URI; Ordered By:Keyonna Armstrong; 10. Status:Complete; Done: 20Sep2017 Ordered; For:Acute URI; Ordered By:Keyonna Armstrong; 11. Call if: Your temperature is higher than 101F.; Status:Complete; Done: 20Sep2017 Ordered; For:Acute URI; Ordered By:Keyonna Armstrong; 12. The following home treatments may soothe a sore throat.; Status:Complete; Done: 20Sep2017 Ordered; For:Acute URI; Ordered By:Keyonna Armstrong; 13. Seek Immediate Medical Attention if: Breathing starts to have a wheeze or whistling sound.; Status:Complete; Done: 20Sep2017 Ordered; For:Acute URI; Ordered By:Keyonna Armstrong; 14. Use a cough medicine to help you get adequate rest.; Status:Complete; Done: 20Sep2017 Ordered; For:Acute URI; Ordered By:Keyonna Armstrong; 15. Seek Immediate Medical Attention if: You have difficulty breathing, or you are short of breath more often.; Status:Complete; Done: 20Sep2017 Ordered; For:Acute URI; Ordered By:Keyonna Armstrong; 16. Seek Immediate Medical Attention if: You have pain in the chest that gets worse with deep breathing or coughing.; Status:Complete; Done: 20Sep2017 Ordered; For:Acute URI; Ordered By:Keyonna Armstrong; 17. Seek Immediate Medical Attention if: Your temperature is greater than 103F.; Status:Complete; Done: 20Sep2017 Ordered; For:Acute URI; Ordered By:Keyonna Armstrong; Anxiety 18. Call if: New symptoms occur.; Status:Complete; Done: 20Sep2017 Ordered; For:Anxiety; Ordered By:Keyonna Armstrong; 19. Continue with our present treatment plan.; Status:Complete; Done: 20Sep2017 Ordered; For:Anxiety; Ordered By:Keyonna Armstrong; 20. Call if: The symptoms seem worse.; Status:Complete; Done: 20Sep2017 Ordered; For:Anxiety; Ordered By:Keyonna Armstrong; 21. Call if: You are concerned about your child's behavior at home or at school.; Status:Complete; Done: 20Sep2017 Ordered; For:Anxiety; Ordered By:Keyonna Armstrong; 22. Call if: You are having difficulty sleeping (insomnia).; Status:Complete; Done: 20Sep2017 Ordered; For:Anxiety; Ordered By:Keyonna Armstrong; 23. Call if: Your feelings of anxiety are not getting better in 2 weeks.; Status:Complete; Done: 20Sep2017 Ordered; For:Anxiety; Ordered By:Keyonna Armstrong; 24. Call if: Your feelings of being frightened, nervous, anxious, and out of control are happening more often.; Status:Complete; Done: 20Sep2017 Ordered; For:Anxiety; Ordered By:Keyonna Armstrong; 25. Call 911 if: You are considering suicide.; Status:Complete; Done: 20Sep2017 Ordered; For:Anxiety; Ordered By:Keyonna Armstrong; 26. Call 911 if: You are thinking about harming yourself or someone else.; Status:Complete; Done: 20Sep2017 Ordered; For:Anxiety; Ordered By:Keyonna Armstrong; 27. Seek Immediate Medical Attention if: ; Status:Complete; Done: 20Sep2017 Ordered; For:Anxiety; Ordered By:Keyonna Armstrong; 28. Seek Immediate Medical Attention if: You feel your heart is beating very fast or skipping beats.; Status:Complete; Done: 20Sep2017 Ordered; For:Anxiety; Ordered By:Keyonna Armstrong; Hypertension 29. Call if: You become dizzy or lightheaded, especially when you stand up after sitting for a while.; Status:Complete; Done: 20Sep2017 Ordered; For:Hypertension; Ordered By:Keyonna Armstrong; 30. Call if: You develop double vision (see two of everything).; Status:Complete; Done: 20Sep2017 Ordered; For:Hypertension; Ordered By:Keyonna Armstrong; 31. Call if: Your blood pressure is frequently higher than 140/90.; Status:Complete; Done: 20Sep2017 Ordered; For:Hypertension; Ordered By:Keyonna Armstrong; 32. Call 911 if: You experience a new kind of chest pain (angina) or pressure.; Status:Complete; Done: 20Sep2017 Ordered; For:Hypertension; Ordered By:Keyonna Armstrong; 33. Call 911 if: You have any symptoms of a stroke.; Status:Complete; Done: 20Sep2017 Ordered; For:Hypertension; Ordered By:Keyonna Armstrong; 34. Seek Immediate Medical Attention if: You have a severe headache that will not go away.; Status:Complete; Done: 20Sep2017 Ordered; For:Hypertension; Ordered By:Keyonna Armstrong; 35. Seek Immediate Medical Attention if: Your blood pressure is greater than 250/120 for 2 consecutive readings.; Status:Complete; Done: 20Sep2017 Ordered; For:Hypertension; Ordered By:Keyonna Armstrong; Hypertension, Sinus tachycardia 36. EKG In Office; Status:Complete; Done: 20Sep2017 05:27PM Performed:In Office; Due:27Sep2017;Ordered; For:Hypertension, Sinus tachycardia; Ordered By:Keyonna Armstrong; Influenza A 37. Call if: The cough is getting worse.; Status:Complete; Done: 20Sep2017 Ordered; For:Influenza A; Ordered By:Keyonna Armstrong; 38. Drink at least 6 glasses of water or juice a day.; Status:Complete; Done: 20Sep2017 Ordered; For:Influenza A; Ordered By:Keyonna Armstrong; 39. Call if: The cough is not gone in 10 days.; Status:Complete; Done: 20Sep2017 Ordered; For:Influenza A; Ordered By:Keyonna Armstrong; 40. Good hand washing is one of the best ways to control the spread of germs.; Status:Complete; Done: 20Sep2017 Ordered; For:Influenza A; Ordered By:Keyonna Armstrong; 41. Call if: The fever comes back after being normal for 2 days.; Status:Complete; Done: 20Sep2017 Ordered; For:Influenza A; Ordered By:Keyonna Armstrong; 42. Keep your child home from school or daycare until the fever is gone.; Status:Complete; Done: 20Sep2017 Ordered; For:Influenza A; Ordered By:Keyonna Armstrong; 43. Call if: The fever has not gone away in 2 days.; Status:Complete; Done: 20Sep2017 Ordered; For:Influenza A; Ordered By:Keyonna Armstrong; 44. Rest in bed until your temperature returns to normal.; Status:Complete; Done: 20Sep2017 Ordered; For:Influenza A; Ordered By:Keyonna Armstrong; 45. Call if: You have a productive cough and are bringing up secretions (phlegm).; Status:Complete; Done: 20Sep2017 Ordered; For:Influenza A; Ordered By:Keyonna Armstrong; 46. Status:Complete; Done: 20Sep2017 Ordered; For:Influenza A; Ordered By:Keyonna Armstrong; 47. Call if: You have pain in your ear.; Status:Complete; Done: 20Sep2017 Ordered; For:Influenza A; Ordered By:Keyonna Armstrong; 48. Stay home from work or school until your condition is improved.; Status:Complete; Done: 20Sep2017 Ordered; For:Influenza A; Ordered By:Keyonna Armstrong; 49. Call if: You have pain in your face, cheeks or forehead.; Status:Complete; Done: 20Sep2017 Ordered; For:Influenza A; Ordered By:Keyonna Armstrong; 50. The following home treatments may soothe a sore throat.; Status:Complete; Done: 20Sep2017 Ordered; For:Influenza A; Ordered By:Keyonna Armstrong; 51. Call if: You start vomiting.; Status:Complete; Done: 20Sep2017 Ordered; For:Influenza A; Ordered By:Keyonna Armstrong; 52. Use a cool mist humidifier in the room.; Status:Complete; Done: 20Sep2017 Ordered; For:Influenza A; Ordered By:Keyonna Armstrong; 53. Call if: Your temperature is higher than 101F.; Status:Complete; Done: 20Sep2017 Ordered; For:Influenza A; Ordered By:Keyonna Armstrong; 54. Seek Immediate Medical Attention if: Breathing starts to have a wheeze or whistling sound.; Status:Complete; Done: 20Sep2017 Ordered; For:Influenza A; Ordered By:Keyonna Armstrong; 55. Seek Immediate Medical Attention if: The fever continues or becomes higher.; Status:Complete; Done: 20Sep2017 Ordered; For:Influenza A; Ordered By:Keyonna Armstrong; 56. Seek Immediate Medical Attention if: You are feeling short of breath.; Status:Complete; Done: 20Sep2017 Ordered; For:Influenza A; Ordered By:Keyonna Armstrong; 57. Seek Immediate Medical Attention if: You become dehydrated.; Status:Complete; Done: 20Sep2017 Ordered; For:Influenza A; Ordered By:Keyonna Armstrong; 58. Seek Immediate Medical Attention if: You feel short of breath even while resting.; Status:Complete; Done: 20Sep2017 Ordered; For:Influenza A; Ordered By:Keyonna Armstrong; 59. Seek Immediate Medical Attention if: You have a fever, headache, and vomiting, or have a stiff neck.; Status:Complete; Done: 20Sep2017 Ordered; For:Influenza A; Ordered By:Keyonna Armstrong; 60. Seek Immediate Medical Attention if: You have pain in the chest that gets worse with deep breathing or coughing.; Status:Complete; Done: 20Sep2017 Ordered; For:Influenza A; Ordered By:Keyonna Armstrong; PMH: Anxiety, PMH: History of insomnia 61. LORazepam 0.5 MG Oral Tablet; TAKE 1 TABLET BY MOUTH 3 TIMES A DAY NEEDED Rx By: Keyonna Armstrong; Dispense: 30 Days ; #:90 Tablet; Refill: 0; For: PMH: Anxiety, PMH: History of insomnia; TEX = N; Print Rx; Last Updated By: Nazia Roach; 09/20/2017 4:24:29 PM Called into [facility];LM-KKR RN Called into [facility];LM-KKR RN Called into [facility];LM-KKR RN called into [facility] [place] Called into [facility] - LM /tjt Called into [facility] - LM /tjt Called into [facility] - LM /tjt Called into [facility] - LM /tjt Called into [facility] - LM /tjt Called into [facility] - LM /tjt Called into [facility] - LM /tjt Called into [facility] - LM /tjt Called into [facility] - LM - gets #90 every 30 days /tjt Called into [facility] - LM /tjt Called into [facility] - LM /tjt Called into [facility] - LM /tjt Called in to [facility] - LM /tjt Called in to [facility] - LM /tjt HTN/tachycardia - Cautioned on use of OTC cold meds as will increase HR and BP. She can only use heart safe cold meds. Brands discussed today. Flu A - Given tamiflu. Advised on risks, benefits and side effects of meds. She is to go to ER if symptoms worsen. URI - Pt started on Ceftin BID. Advised on risks, benefits and side effects of meds. She is to let me know if symptoms worsen. Anxiety - lorazepam refilled today. Will discuss plan for wean at next visit. Depression - Stable. Continue meds. Would like for pt to follow up in one week for recheck, sooner if symptoms worsen. Will also reviewother chronic health problems at next visit. Signatures Electronically signed by : Keyonna Armstrong APN; Sep 20 2017 5:30PM COATING INSPECTOR (Author) documented in this encounter Plan of Treatment Upcoming Encounters Date Type Department Care Team (Late st Contact Info) Description 07/25/2024 10:00 AM COATING INSPECTOR Office Visit [facility] Family & Internal Medicine - [id number] [place] [address] Keyonna Armstrong APNP [address] [place] [address] 07/31/2024 10:15 AM COATING INSPECTOR Office Visit [facility] [address] [place] [address] Pepe Mitchell MD [facility]. [facility] [address] [place] [address] documented as of this encounter Procedures Procedure Name Priority Date/Time Associated Diagnosis Comments CARDIOLOGY GENERIC Routine 09/20/2017 5: 27 PM COATING INSPECTOR INFLUENZA A & B Routine 09/20/2017 12:34 PM COATING INSPECTOR documented in this encounter Results * CARDIOLOGY GENERIC (09/20/2017 5:27 PM COATING INSPECTOR) 09/20/2017 5:27 PM COATING INSPECTOR 09/20/2017 5:27 PM COATING INSPECTOR Narrative [facility] TO EPIC CONVERSION - 09/20/2017 5:27 PM COATING INSPECTOR Sinus tachycardia, no acute changes noted. Procedure Note Keyonna Armstrong APNP - 05/16/2018 Sinus tachycardia, no acute changes noted. Keyonna [facility] Final Res ult [facility] TO EPIC CONVERSION * INFLUENZA A & B (09/20/2017 12:34 PM COATING INSPECTOR) INFULENZA A AB Positive [facility] OUP TO EPIC CONVERSION INFLUENZA B AB Negative [facility] OUP TO EPIC CONVERSION Internal Control: Yes [facility] TO [facility]IC CONVERSION 09/20/2017 12:3 4 PM COATING INSPECTOR 09/20/2017 12:34 PM COATING INSPECTOR Narrative [facility] TO EPIC CONVERSION - 09/20/2017 12:34 PM COATING INSPECTOR Result Communication: Discussed results with patient Keyonna [facility] Final Result [facility] TO EPIC CONVERSION documented in this encounter Visit Diagnoses Not on filedocumented in this encounter
--- OUTSIDE RECORDS SUMMARY | 2024-07-10 23:01 | XMS_ITS | Encounter Summary ---
Author Organization [facility] Address [address] [place] [address]. [place], [place] [address] [place] [address] Care Team Providers Care Automation And Control Engineer Name Role Phone Unavailable Primary Care Provider Unavailabl e Encounter Details Date Type Department Care Team (Late st Contact Info) Description 09/15/2016 Abstract [facility] [address] Royer Hidalgo MD [address] [facility] [place] [id number] Social History Tobacco Use Types Packs/Day Years Used Date Smoking Tobacco: Never Assessed Comments Unknown Sex and Gender Information Value Date Recorded Sex Assigned at Not on file Legal Sex Female 5:47 PM CDT Gender Identity Female 07/17/2022 10:27 AM PASTEURIZER HELPER Sexual Orientation Straight 07/17/2022 10 :27 AM PASTEURIZER HELPER documented as of this encounter Plan of Treatment Upcoming Encounters Date Type Department Care Team (Late st Contact Info) Description 07/25/2024 10:00 AM PASTEURIZER HELPER Office Visit [facility] Family & Internal Medicine - [place] [address] [place] [address] Keyonna Armstrong APNP [address] [place] [address] 07/31/2024 10:15 AM PASTEURIZER HELPER Office Visit [facility], [address] [address] Pepe Mitchell MD Three [address] [address] documented as of this encounter Procedures Procedure Name Priority Date/Time Associated Diagnosis Comments URINALYSIS WI REFLEX TO CULTURE Routine 09/15/2016 5:48 PM PASTEURIZER HELPER documented in this encounter Results * URINALYSIS WI REFLEX TO CULTURE (09/15/2016 5:48 PM PASTEURIZER HELPER) SOURCE (FLUID) URINE CLEAN CATCH 09/15/2016 6:48 PM [facility] COLOR (U) YELLOW 09/15/2016 10:05 PM [facility] TRANSPARENCY CLOUDY 09/15/2016 10:05 PM [facility] SPECIFIC GRAVITY (U) 1.013 1.001 - 1.030 09/15/2016 10:05 PM [facility] U PH 6.0 5.0 - 9.0 09/15/2016 10:05 PM [facility] LEUKOCYTES (U) NEGATIVE NEGATIVE 09/15/2016 10:05 PM [facility] NITRITES NEGATIVE NEGATIVE 09/15/2016 10:05 PM [facility] PROTEIN (U) NEGATIVE <30 MG/DL 09/15/2016 10:05 PM [facility] URINE GLUCOSE NEGATIVE NEGATIVE MG/DL 09/15/2016 10:05 PM [facility] KETONES MG/DL (U) NEGATIVE NEGATIVE MG/DL 09/15/2016 10:05 PM [facility] UROBILINOGEN NEGATIVE NEGATIVE MG/DL 09/15/2016 10:05 PM [facility] BILIRUBIN (U) NEGATIVE NEGATIVE MG/DL 09/15/2016 10:05 PM [facility] BLOOD (U) NEGATIVE NEGATIVE 09/15/2016 10:05 PM [facility] CULTURE & SENSITIVITY INDICATED? CULTURE IS NOT INDICATED 09/15/2016 10:05 PM [facility] SQUAMOUS EPITHELIALS MODERATE /LPF 09/15/2016 10:05 PM [facility] MUCUS RARE /LPF 09/15/2016 10:05 PM [facility] WBC/HPF <1 <6 /HPF 09/15/2016 10:05 PM [facility] RBC/HPF 2 <6 /HPF 09/15/2016 10:05 PM [facility] 09/15/2016 5:48 PM PASTEURIZER HELPER 09/15/2016 9:05 PM PASTEURIZER HELPER us Generic Conversion Md RUELAS URINE ORDERABLES Final Result [facility] [address] [place] [address], [place] [phone] documented in this encounter Visit Diagnoses Diagnosis Unspecified symptoms and signs involving the genitourinary system documented in this encounter
--- OUTSIDE RECORDS SUMMARY | 2024-07-10 23:01 | XMS_ITS | Encounter Summary ---
Author Organization [facility] Address [address] [place] [address]. [place] [id number] [place] [address] Care Team Providers Care Judicial Administrative Assistant Name Role Phone Keoynna Armstrong Primary Care Provider [phone] Reason for Visit * Reason Onset Date Comments Medication Request 09/21/2018 Encounter Details Date Type Department Care Team (Late st Contact Info) Description 09/21/2018 Telephone [facility] Family & Internal Medicine [facility] [address] [place] [address] Keyonna Armstrong APNP [address] [place] [address] Medication Request Social History Tobacco [...] Gender Identity Female 07/17/2022 10:27 AM REVENUE TAX SPECIALIST Sexual Orientation Straight 07/17/2022 10 :27 AM REVENUE TAX SPECIALIST documented as of this encounter Progress Notes * Nenita Young MA - 09/23/2018 1:50 PM CST [facility] appt 10/09/18-sjs NUE TAX SPECIALIST * Nenita Young MA - 09/23/2018 11:35 AM CST [id number] NUE TAX SPECIALIST * YOBANI Cruz - 09/21/2018 8:45 AM CST Please let pt know that I did co sign the fill of her OCP, but will no longer be filling these. I have had the conversation with her several times regarding the importance of her seeing a MICROFICHE CAMERA OPERATOR to discuss alternatives to this. Please stress to her, AGAIN, the importance of following with MICROFICHE CAMERA OPERATOR for this. I have discussed with her several times the importance of this and risks involved of continued OCP use. NUE TAX SPECIALIST documented in this encounter Plan of Treatment Upcoming Encounters Date Type Department Care Team (Late st Contact Info) Description 07/25/2024 10:00 AM REVENUE TAX SPECIALIST Office Visit [facility] Family & Internal Medicine - [place] [address] [place] [address] Keoynna Armstrong APNP [address] [place] [address] 07/31/2024 10:15 AM REVENUE TAX SPECIALIST Office Visit [facility] [address] [place] [address] Pepe Mitchell MD Three [facility]. [place] [address] [place] [address] documented as of this encounter Visit Diagnoses Not on filedocumented in this encounter Care Teams Judicial Administrative Assistant Relationship Specialty Start Date End Date Keyonna Armstrong APNP [address] [place] [address] PCP - General NURSE PRACTITIONER 05/06/18 documented as of this encounter
--- OUTSIDE RECORDS SUMMARY | 2024-07-10 23:01 | XMS_ITS | Encounter Summary ---
Author Organization [facility] Address [address] [place] [address]. [place], [place] [address] [place] [address] Care Team Providers Care Rotary Driller Helper Name Role Phone Unavailable Primary Care Provider Unavailabl e Encounter Details Date Type Department Care Team (Late st Contact Info) Description 02/26/2018 Abstract [facility] Medical [facility] Family & Internal Medicine [place] [address] [place] [address] Keyonna Armstrong APNP [address] [place] [address] Social History Tobacco Use Types Packs/Day Years Used Date Smoking Tobacco: Never Assessed Comments Unknown Sex and Gender Information Value Date Recorded Sex Assigned at Not on file Legal Sex Female 5:47 PM CDT Gender Identity Female 07/17/2022 10:27 AM ASSOCIATE PROFESSOR OF ANTHROPOLOGY Sexual Orientation Straight 07/17/2022 10 :27 AM ASSOCIATE PROFESSOR OF ANTHROPOLOGY documented as of this encounter Last Filed Vital Signs Vital Sign Reading Time Taken Comments Blood Pressure 142/102 02/26/2018 8:12 AM CDT Pulse 85 02/26/2018 8:12 AM CDT Temperature - - Respiratory Rate - - Oxygen Saturation - - Inhaled Oxygen Concentration - - Weight 136.1 kg (300 lb) 02/26/2018 8:12 AM CDT Height 163.8 cm (5' 4.5) 02/26/2018 8:12 AM CDT Body Mass Index 50.7 02/26/2018 8:12 AM CDT documented in this encounter Progress Notes * YOBANI Cruz - 02/26/2018 8:00 AM CDT Reason For Visit Acute Visit Chief Complaint Patient c/o cold and cough since Sunday. History of Present Illness HPI Free Text: Pt here today c/o sinus pain and pressure, sinus drainage, itchy ears, sore throat, productive cough that started about a week ago and has worsened. She has treated at home Coricidin HBP without much improvement. Denies any RUDD or hemoptysis. Denies any fever or chills. Her BP is elevated today, but states she has not had her BP meds as of yet this morning. Review of Systems Constitutional, Cardiovascular, Gastrointestinal, Integumentary and Neurological review of systems normal except as noted. ENT: earache, nasal discharge and sore throat, but no hoarseness. Respiratory: cough and wheezing, but no shortness of breath and no shortness of breath during exertion. Active Problems 1. Adrenal adenoma (227.0) (D35.00) 2. Anxiety (300.00) (F41.9) 3. Chronic insomnia (780.52) (F51.04) 4. Depression (311) (F32.9) 5. Dyslipidemia (272.4) (E78.5) 6. Esophageal reflux (530.81) (K21.9) 7. High serum renin (790.99) (R79.89) 8. History of motion sickness (V13.89) (Z87.898) 9. Hypertension (401.9) (I10) 10. Impaired fasting glucose (790.21) (R73.01) 11. Long-term use of high-risk medication (V58.69) (Z79.899) 12. Morbid obesity (278.01) (E66.01) 13. Obstructive sleep apnea (327.23) (G47.33) 14. Right ovarian cyst (620.2) (N83.201) 15. Shortness of breath at rest (786.05) (R06.02) 16. Sinus tachycardia (427.89) (R00.0) 17. Urinary retention (788.20) (R33.9) 18. Wheezing (786.07) (R06.2) Surgical History 1. History of Gastric Surgery For Morbid Obesity Family History Mother 1. Family history of Hypertension (V17.49) Father 2. Family history of Diabetes Mellitus (V18.0) Sister 3. Family history of thyroid disease (V18.19) (Z83.49) Maternal Grandmother 4. Family history of Stroke Syndrome (V17.1) Grandfather 5. Family history of lung disease (V19.8) (Z83.6) 6. Family history of malignant neoplasm (V16.9) (Z80.9) Aunt 7. Family history of lung disease (V19.8) (Z83.6) 8. Family history of malignant neoplasm (V16.9) (Z80.9) Social History ?? Never a smoker ?? No alcohol use ?? Occasional caffeine consumption Immunizations Influenza --- Series1: 19-Jun-2012; Series2: 25-Apr-2016 Tdap --- Series1: 25-Apr-2016 Current Meds 1. Enpresse-28 Oral Tablet; TAKE 1 TABLET BY MOUTH EVERY DAY; Therapy: 30May2012 to (Evaluate:22Apr2018) Requested for: 55Mud4845; Last Rx:[id number] Ordered 2. HydroCHLOROthiazide 25 MG Oral Tablet; TAKE ONE TABLET BY MOUTH EVERY DAY; Therapy: 20May2012 to (Evaluate:47Qao8440) Requested for: 88Zyd4414; Last Rx:[id number] Ordered 3. Lisinopril 20 MG Oral Tablet; TAKE 1 TABLET BY MOUTH EVERY DAY; Therapy: 28Sep2017 to (Evaluate:27Apr2018) Requested for: 91Spw8765; Last Rx:46Pli6988 Ordered 4. LORazepam 0.5 MG Oral Tablet; TAKE 1 TABLET BY MOUTH 3 TIMES A DAY. Patient needs appointment for further refills; Therapy: 33Ypp2258 to (Evaluate:01Mar2018) Requested for: 31Dec2017; Last Rx:[id number] Ordered 5. MetFORMIN HCl - 500 MG Oral Tablet; TAKE 1 TABLET BY MOUTH EVERY MORNING AND THEN TAKE 2 TABLETS AT BEDTIME; Therapy: 24Dec2011 to (Evaluate:80Dzw4568) Requested for: 09Jan2018; Last Rx:09Jan2018 Ordered 6. Methocarbamol 750 MG Oral Tablet; TAKE 1 TO 2 TABLETS 3 TIMES DAILY NEEDED FOR MUSCLE SPASM; Therapy: 11Aug2014 to (Evaluate:57Vxt5687) Requested for: 15Qjc6663; Last Rx:[id number] Ordered 7. Metoprolol Succinate ER 100 MG Oral Tablet Extended Release 24 Hour; TAKE 1 TABLET BY MOUTH EVERY DAY; Therapy: 08May2017 to (Evaluate:47Lcu0885) Requested for: 18Oct2017; Last Rx:18Oct2017 Ordered 8. Ondansetron 4 MG Oral Tablet Disintegrating; DISSOLVE 1-2 TABLETS ON TONGUE EVERY 8 HOURS NEEDED FOR NAUSEA ..PATIENT NEEDS APPOINTMENT; Therapy: 02Mar2015 to (Evaluate:00Vdo4405) Requested for: 20Nov2016; Last Rx:20Nov2016 Ordered 9. Pantoprazole Sodium 40 MG Oral Tablet Delayed Release; TAKE 1 TABLET EVERY DAY; Therapy: 08Jun2012 to (Evaluate:12Jun2018) Requested for: 83Cvf5119; Last Rx:[id number] Ordered 10. Polyethylene Glycol 3350 Oral Powder; MIX 1 CAPFUL (17GM) IN 8 OUNCES OF WATER, JUICE, OR TEA AND DRINK DAILY; Therapy: 45Qcx3988 to (Evaluate:35Tmk4899) Requested for: 27Apr2017; Last Rx:27Apr2017 Ordered 11. Venlafaxine HCl ER 75 MG Oral Capsule Extended Release 24 Hour; TAKE ONE CAPSULE BY MOUTH EVERY MORNING AND TAKE 2 CAPSULES EVERY EVENING; Therapy: 13May2012 to (Evaluate:97Dgm2196) Requested for: 06Jan2018; Last Rx:06Jan2018 Ordered 12. Zolpidem Tartrate 10 MG Oral Tablet; TAKE 1 TABLET BY MOUTH AT BEDTIME NEEDED; Therapy: 33Cvq3963 to (Evaluate:08Mar2018) Requested for: 07Jan2018; Last Rx:07Jan2018 Ordered Allergies 1. No Known Drug Allergies Vitals Recorded: 26Feb2018 08:12AM Temperature 98 F Heart Rate 85 Respiration 16 Systolic 142 Diastolic 102 O2 Saturation 96 Height 5 ft 4.5 in Weight 300 lb BMI Calculated 50.7 BSA Calculated 2.34 Physical Exam Constitutional General appearance: No acute distress, well appearing and well nourished. Ears, Nose, Mouth, and Throat External inspection of ears and nose: Normal. Otoscopic examination: Abnormal. L ear/TM slightly erythematous. RIght TM nml.. Oropharynx: Abnormal. slight erythema to oropharynx... Pulmonary Auscultation of lungs: Abnormal. few scattered wheezes noted throughout lung white... Cardiovascular Auscultation of heart: Normal rate and rhythm, normal S1 and S2, without murmurs. Examination of extremities for edema and/or varicosities: Normal. Lymphatic Palpation of lymph nodes in neck: No lymphadenopathy. Musculoskeletal Gait and station: Normal. Psychiatric Orientation to person, place, and time: Normal. Mood and affect: Normal. Counseling The patient was counseled regarding instructions for management, risk factor reductions, patient and family education, impressions, risks and benefits of treatment options and importance of compliance with treatment. total time of encounter was 20 minutes and 15 minutes was spent counseling. Assessment 1. Acute maxillary sinusitis (461.0) (J01.00) 2. Bronchitis, acute (466.0) (J20.9) Plan Acute maxillary sinusitis 1. Apply warm moist compresses to the affected area 3 times a day for 5 minutes.; Status:Complete; Done: 73Vpf1391 Ordered; For:Acute maxillary sinusitis; Ordered By:Keyonna Armstrong; 2. Seek Immediate Medical Attention if: You have a fever, headache, and vomiting, or have a stiff neck.; Status:Complete; Done: 46Kkg4309 Ordered; For:Acute maxillary sinusitis; Ordered By:Keyonna Armstrong; 3. Irrigate your nose twice a day.; Status:Complete; Done: 09Zcm8506 Ordered; For:Acute maxillary sinusitis; Ordered By:Keyonna Armstrong; 4. Seek Immediate Medical Attention if: You have a severe headache that will not go away.; Status:Complete; Done: 54Cqa6744 Ordered; For:Acute maxillary sinusitis; Ordered By:Keyonna Armstrong; 5. Taking a hot steamy shower may help your condition.; Status:Complete; Done: 78Ecj4094 Ordered; For:Acute maxillary sinusitis; Ordered By:Keyonna Armstrong; 6. Seek Immediate Medical Attention if: You have signs of infection in or around the affected area.; Status:Complete; Done: 15Hgy2773 Ordered; For:Acute maxillary sinusitis; Ordered By:Keyonna Armstrong; 7. Seek Immediate Medical Attention if: Your eyesight becomes blurry or you have difficulty seeing.; Status:Complete; Done: 42Sbp2389 Ordered; For:Acute maxillary sinusitis; Ordered By:Keyonna Armstrong; Acute maxillary sinusitis, Bronchitis, acute 8. Cefuroxime Axetil 250 MG Oral Tablet; TAKE 1 TABLET EVERY 12 HOURS DAILY Rx By: Keyonna Armstrong; Dispense: 10 Days ; #:20 Tablet; Refill: 0; For: Acute maxillary sinusitis, Bronchitis, acute; TEX = N; Verified Transmission to [facility]; Last Updated By: DivX; 02/26/2018 8:40:21 AM Bronchitis, acute 9. Benzonatate 100 MG Oral Capsule; TAKE 1 CAPSULE 3 TIMES DAILY NEEDED Rx By: Keyonna Armstrong; Dispense: 10 Days ; #:30 Capsule; Refill: 0; For: Bronchitis, acute; TEX = N; Verified Transmission to [facility]; Last Updated By: DivX; 02/26/2018 8:45:28 AM 10. Drink plenty of fluids.; Status:Complete; Done: 61Icn1075 Ordered; For:Bronchitis, acute; Ordered By:Keyonna Armstrong; 11. Call if: Breathing starts to have a wheeze or whistling sound.; Status:Complete; Done: 49Cqt9866 Ordered; For:Bronchitis, acute; Ordered By:Keyonna Armstrong; 12. Ventolin HFA 108 (90 Base) MCG/ACT Inhalation Aerosol Solution; INHALE 2 PUFFS BY MOUTH EVERY 4 TO 6 HOURS NEEDED Rx By: Keyonna Armstrong; Dispense: 0 Days ; #:1 X 18 GM Inhaler; Refill: 1; For: Bronchitis, acute; TEX = N; Verified Transmission to [facility]; Last Updated By: DivX; 02/26/2018 8:42:15 AM 13. Status:Complete; Done: 92Kbf9414 Ordered; For:Bronchitis, acute; Ordered By:Keyonna Armstrong; 14. Call if: You have pain in the chest that gets worse with deep breathing or coughing.; Status:Complete; Done: 89Gbn8447 Ordered; For:Bronchitis, acute; Ordered By:Keyonna Armstrong; 15. Use a cool mist humidifier in the room.; Status:Complete; Done: 08Ntr6758 Ordered; For:Bronchitis, acute; Ordered By:Keyonna Armstrong; 16. Seek Immediate Medical Attention if: You are feeling short of breath.; Status:Complete; Done: 17Xib7657 Ordered; For:Bronchitis, acute; Ordered By:Keyonna Armstrong; 17. Use a cough medicine to help you get adequate rest.; Status:Complete; Done: 98Ptz2589 Ordered; For:Bronchitis, acute; Ordered By:Keyonna Armstrong; 18. Seek Immediate Medical Attention if: You have difficulty breathing, or you are short of breath more often.; Status:Complete; Done: 28Gqx6107 Ordered; For:Bronchitis, acute; Ordered By:Keyonna Armstrong; 19. Seek Immediate Medical Attention if: You have pain in your chest.; Status:Complete; Done: 39Hwq6242 Ordered; For:Bronchitis, acute; Ordered By:Keyonna Armstrong; 20. Seek Immediate Medical Attention if: You notice that breathing is rapid, more than 40 times a minute.; Status:Complete; Done: 71Agp4990 Ordered; For:Bronchitis, acute; Ordered By:Keyonna Armstrong; Zee sinusitis- Treated with Ceftin. Advised of risks, benefits and side effects. She is to let meknow if there is no improvement. Bronchitis - In office neb given. Lungs cleared after tx. Treated with Ceftin and albuterol inhaler. She is to let me know if symptoms do not improve in the next week, sooner if symptoms worsen. Signatures Electronically signed by : Keyonna Armstrong APN; Feb 27 2018 4:27PM ASSOCIATE PROFESSOR OF ANTHROPOLOGY (Author) documented in this encounter Plan of Treatment Upcoming Encounters Date Type Department Care Team (Late st Contact Info) Description 07/25/2024 10:00 AM ASSOCIATE PROFESSOR OF ANTHROPOLOGY Office Visit [facility] Family & Internal Medicine - [address] [address] Keyonna Armstrong APNP [address] [place] [address] 07/31/2024 10:15 AM ASSOCIATE PROFESSOR OF ANTHROPOLOGY Office Visit [facility], [facility] [address] [place], [place] [id number] Pepe Mitchell MD Three [facility]. [facility] [address] [place] [address] documented as of this encounter Visit Diagnoses Not on filedocumented in this encounter
--- OUTSIDE RECORDS SUMMARY | 2024-07-10 23:01 | XMS_ITS | Encounter Summary ---
Author Organization [facility] Address [address] [place] [address]. [place], [place] [address] [place] [address] Care Team Providers Care Chief Architect Name Role Phone Unavailable Primary Care Provider Unavailabl e Encounter Details Date Type Department Care Team (Latest Contact Info) Description 05/29/2017 Abstract [facility] Social History Tobacco Use Types Packs/Day Years Used Date Smoking Tobacco: Never Assessed Comments Unknown Sex and Gender Information Value Date Recorded Sex Assigned at Not on file Legal Sex Female 5:47 PM CDT Gender Identity Female 07/17/2022 10:27 AM VP COMMUNICATIONS Sexual Orientation Straight 07/17/2022 10 :27 AM VP COMMUNICATIONS documented as of this encounter Plan of Treatment Upcoming Encounters Date Type Department Care Team (Late st Contact Info) Description 07/25/2024 10:00 AM VP COMMUNICATIONS Office Visit [facility] Medical Group Family & Internal Medicine - [place] [address] [place] [address] Keyonna Armstrong APNP [address] [place] [address] 07/31/2024 10:15 AM VP COMMUNICATIONS Office Visit [facility] [address] [place], [place] [id number] Pepe Mitchell MD [facility]. [facility] [place] [address] [place], [place] [id number] documented as of this encounter Visit Diagnoses Not on filedocumented in this encounter
--- OUTSIDE RECORDS SUMMARY | 2024-07-10 23:01 | XMS_ITS | Encounter Summary ---
Author Organization [facility] Address [address] [place] [address]. [place] [id number] [place] [address] Care Team Providers Care Wallpaper Remover Steam Name Role Phone Keyonna Armstrong Primary Care Provider [phone] Reason for Visit * Reason Comments Follow Up Encounter Details Date Type Department Care Team (Late st Contact Info) Description 09/03/2018 11:40 AM CHARGEBACK ANALYST Office Visit [facility] Family & Internal Medicine [facility] [address] [place] [address] Keyonna Armstrong APNP [address] [place] [address] Follow Up Social History Tobacco [...] CDT Gender Identity Female 07/17/2022 10:27 AM CHARGEBACK ANALYST Sexual Orientation Straight 07/17/2022 10 :27 AM CHARGEBACK ANALYST documented as of this encounter Last Filed Vital Signs Vital Sign Reading Time Taken Comments Blood Pressure 143/89 09/03/2018 11:39 AM CHARGEBACK ANALYST Pulse 115 09/03/2018 11:39 AM CHARGEBACK ANALYST Temperature - - Respiratory Rate 16 09/03/2018 11:39 AM CHARGEBACK ANALYST Oxygen Saturation 97% 09/03/2018 11:39 AM CHARGEBACK ANALYST Inhaled Oxygen Concentration - - Weight 129.3 kg (285 lb) 09/03/2018 11:39 AM CHARGEBACK ANALYST Height 162.6 cm (5' 4) 09/03/2018 11:39 AM CHARGEBACK ANALYST Body Mass Index 48.92 09/03/2018 11:39 AM CHARGEBACK ANALYST documented in this encounter Progress Notes * Keyonna Armstrong, JAMIENP - 09/03/2018 11:40 AM CST Images from the original note were not included. [facility] FAMILY AND INTERNAL MEDICINE OFFICE VISIT Reason for Visit: Follow Up History of Present Illness: Pt here today for routine follow up of chronic health conditions. Pt states she had surgery on her gallbladder about a month ago. She had this done at [place] and states surgery went well, no complications and has a follow up appt with the surgeon scheduled for 09/05/2018. BP and HR had previously been controlled, but notice both are sl elevated at today's visit. Denies any CP, SOB, RUDD, dizziness, lower extremity edema or heart palpitations. States she has been taking her meds as prescribed. She is treated for ZENON and states she wears her CPAP nightly. Tolerates her CPAP well. ROS: Review of Systems Constitutional: Negative for [...] Psychiatric/Behavioral: Negative for depression. The patient is nervous/anxious. Medications: Current Outpatient Medications: ??? albuterol sulfate HFA (VENTOLIN HFA) 108 (90 Base) MCG/ACT inhaler, Inhale 2 puffs into the lungs every 4 (four) hours as needed for Wheezing., Disp: 18 g, Rfl: 1 ??? amlodipine 5 MG tablet, Take 1 tablet (5 mg total) by mouth daily., Disp: 90 tablet, Rfl: 1 ??? hydrochlorothiazide 25 MG tablet, Take 1 tablet by mouth daily., Disp: , Rfl: ??? ibuprofen 800 MG tablet, Take 1 tablet (800 mg total) by mouth every 6 (six) hours as needed for Pain., Disp: 90 tablet, Rfl: 1 ??? levonorgestrel-ethinyl estradiol (ENPRESSE-28) tablet, Take 1 tablet by mouth daily., Disp: 84 tablet, Rfl: 0 ??? lisinopril 40 MG tablet, Take 1 tablet (40 mg total) by mouth daily., Disp: 90 tablet, Rfl: 0 ??? lorazepam 0.5 MG tablet, Take 1 tablet (0.5 mg total) by mouth 3 (three) times daily as needed., Disp: 90 tablet, Rfl: 0 ??? metFORMIN 500 MG tablet, TAKE 1 TABLET BY MOUTH EVERY MORNING AND THEN TAKE 2 TABLETS AT BEDTIME, Disp: 90 tablet, Rfl: 1 ??? methocarbamol 750 MG Tab, Take 1-2 tablets by mouth 3 (three) times daily as needed., Disp: , Rfl: ??? metoprolol succinate 100 MG 24 hr tablet, Take 1 tablet (100 mg total) by mouth daily., Disp: 90 tablet, Rfl: 1 ??? pantoprazole 40 MG tablet, Take 1 tablet (40 mg total) by mouth daily., Disp: 90 tablet, Rfl: 3 ??? venlafaxine 24 hr 75 MG 24 hr capsule, , Disp: , Rfl: ??? zolpidem 10 MG tablet, Take 1 tablet (10 mg total) by mouth nightly as needed for Sleep., Disp:30 tablet, Rfl: 1 Allergies: No Known Allergies Medical History: Past Medical History: Diagnosis Date ??? Anxiety 09/20/2017 ??? Cholecystitis 06/11/2018 ??? Esophageal reflux 04/22/2013 ??? Hypertension 06/19/2012 ??? Insomnia 04/02/2018 ??? Menorrhagia 04/02/2018 ??? Morbid obesity (CMS/HCC) 09/23/2013 ??? Obstructive sleep apnea 08/02/2012 ??? Sinus tachycardia 09/20/2017 Surgical History: Past Surgical History: Procedure Laterality Date ??? GASTRIC BYPASS N/A 2004 Social History: Social History Socioeconomic History ??? Marital status: Spouse name: Not on file ??? Number of children: Not on file ??? Years of education: Not on file ??? Highest education level: Not on file Social Needs ??? Financial resource strain: Not on file ??? Food insecurity - worry: Not on file ??? Food insecurity - inability: Not on file ??? Transportation needs - medical: Not on file ??? Transportation needs - non-medical: Not on file Occupational History ??? Not [...] Normal range of motion. She exhibits no edema or deformity. Neurological: She is alert and oriented to person, place, and time. Gait normal. Skin: Skin is warm and dry. No rash noted. She is not diaphoretic. No erythema. No pallor. Psychiatric: Mood and affect normal. Nursing note and vitals reviewed. Filed Vitals: 09/03/18 1139 BP: 143/89 Pulse: 115 Resp: 16 SpO2: 97% Weight: 129.3 kg (285 lb) Height: 5' 4 (1.626 m) Labs: Labs Reviewed Diagnoses/Impression: 1. Obstructive sleep apnea Chronic 2. Essential hypertension amlodipine 5 MG tablet Chronic 3. Morbid obesity (CMS/HCC) Chronic 4. Anxiety Chronic 5. BMI 45.0-49.9, adult (CMS/HCC) 6. Right ovarian cyst ibuprofen 800 MG tablet Recommendations and Plan: 1. Obstructive sleep apnea Stable. Continue to wear CPAP as prescribed. 2. Essential hypertension - amlodipine 5 MG tablet; Take 1 tablet (5 mg total) by mouth daily. Dispense: 90 tablet; Refill: 1 BP elevated. Amlodipine added. Discussed risks, benefits and side effects of meds. Will see pt backin one month for BP reeval. 3. Morbid obesity (CMS/HCC) TLC's and dietary changed necessary for weight loss were discussed with pt today. Will continue to monitor. 4. Anxiety Stable. Continue meds. 5. BMI 45.0-49.9, adult (CMS/HCC) 6. Right ovarian cyst - ibuprofen 800 MG tablet; Take 1 tablet (800 mg total) by mouth every 6 (six) hours as needed for Pain. Dispense: 90 tablet; Refill: 1 Pt given recommendations for HEAD PACKAGER to discuss alternatives to OCP. Once again, I had a discussion with pt regarding risks, benefits and side effects of OCP, especially at her age. Would like for her tofollow up with HEAD PACKAGER to discuss alternatives to this. Pt verbalized understanding and states will make appt. Over 50% of time of today's 30 min appt was spent in discussion/counseling. Orders Placed This Encounter ??? ibuprofen 800 MG tablet ??? amlodipine 5 MG tablet Cannot display discharge medications since this is not an admission. PCP: YOBANI Cruz 09/04/2018 GEBACK ANALYST documented in this encounter Plan of Treatment Upcoming Encounters Date Type Department Care Team (Late st Contact Info) Description 07/25/2024 10:00 AM CHARGEBACK ANALYST Office Visit [facility] Family & Internal Medicine - [place] [address] [place] [address] Keyonna Armstrong APNP [address] [place] [address] 07/31/2024 10:15 AM CHARGEBACK ANALYST Office Visit [facility] [place] [address] [place] [address] Pepe Mitchell MD [facility]. [facility] [address] [place] [address] documented as of this encounter Visit Diagnoses Diagnosis Obstructive sleep apnea- Primary Obstructive sleep apnea (adult) (pediatric) Essential hypertension Unspecified essential hypertension Morbid obesity ([facility]) Morbid obesity Anxiety Anxiety state, unspecified BMI 45.0-49.9, adult ([facility]) Body Mass Index 45.0-49.9, adult Right ovarian cyst Other and unspecified ovarian cyst documented in this encounter Care Teams Wallpaper Remover Steam Relationship Specialty Start Date End Date Keyonna Armstrong APNP [address] [place] [address] PCP - General NURSE PRACTITIONER 05/06/18 documented as of this encounter
--- OUTSIDE RECORDS SUMMARY | 2024-07-10 23:01 | XMS_ITS | Encounter Summary ---
Author Organization [facility] Address [facility]. [place], [place] [address] [place] [address] Care Team Providers Care Music Teacher Name Role Phone Unavailable Primary Care Provider Unavailabl e Encounter Details Date Type Department Care Team (Late st Contact Info) Description 01/17/2018 Abstract [facility] Family & Internal Medicine [address] [address] Kel Solo MD [address] [place] [address] Social History Tobacco Use Types Packs/Day Years Used Date Smoking Tobacco: Never Assessed Comments Unknown Sex and Gender Information Value Date Recorded Sex Assigned at Not on file Legal Sex Female 5:47 PM CDT Gender Identity Female 07/17/2022 10:27 AM PIZZAMAKER Sexual Orientation Straight 07/17/2022 10 :27 AM PIZZAMAKER documented as of this encounter Progress Notes * Generic Conversion MD Marti - 01/17/2018 2:20 PM CDT Chief Complaint patient here today for PDM and UDS - nw Active Problems 1. Adrenal adenoma (227.0) (D35.00) [...] retention (788.20) (R33.9) 18. Wheezing (786.07) (R06.2) Current Meds 1. Enpresse-28 Oral Tablet; TAKE 1 TABLET BY MOUTH EVERY DAY; Therapy: 30May2012 to (Evaluate:25Ddu7053) Requested for: 42Abq5408; Last Rx:[id number] Ordered 2. HydroCHLOROthiazide 25 MG Oral Tablet; TAKE ONE TABLET BY MOUTH EVERY DAY; Therapy: 20May2012 to (Evaluate:83Sln3441) Requested for: 44Ivh5227; Last Rx:[id number] Ordered 3. Lisinopril 20 MG Oral Tablet; TAKE 1 TABLET BY MOUTH EVERY DAY; Therapy: 28Sep2017 to (Evaluate:27Apr2018) Requested for: 35Yes5077; Last Rx:[id number] Ordered 4. LORazepam 0.5 MG Oral Tablet; TAKE 1 TABLET BY MOUTH 3 TIMES A DAY. Patient needs appointment for further refills; Therapy: 82Wnd0258 to (Evaluate:46Ubm9922) Requested for: 31Dec2017; Last Rx:[id number] Ordered 5. MetFORMIN HCl - 500 MG Oral Tablet; TAKE 1 TABLET BY MOUTH EVERY MORNING AND THEN TAKE 2 TABLETS AT BEDTIME; Therapy: 24Dec2011 to (Evaluate:55Oyh9077) Requested for: 09Jan2018; Last Rx:09Jan2018 Ordered 6. Methocarbamol 750 MG Oral Tablet; TAKE 1 TO 2 TABLETS 3 TIMES DAILY NEEDED FOR MUSCLE SPASM; Therapy: 11Aug2014 to (Evaluate:19Bmu1770) Requested for: 21Twn6976; Last Rx:[id number] Ordered 7. Metoprolol Succinate ER 100 MG Oral Tablet Extended Release 24 Hour; TAKE 1 TABLET BY MOUTH EVERY DAY; Therapy: 08May2017 to (Evaluate:53Pyu3882) Requested for: 18Oct2017; Last Rx:18Oct2017 Ordered 8. Ondansetron 4 MG Oral Tablet Disintegrating; DISSOLVE 1-2 TABLETS ON TONGUE EVERY 8 HOURS NEEDED FOR NAUSEA ..PATIENT NEEDS APPOINTMENT; Therapy: 20Zbk6996 to (Evaluate:28Mjo6727) Requested for: 20Nov2016; Last Rx:20Nov2016 Ordered 9. Pantoprazole Sodium 40 MG Oral Tablet Delayed Release; TAKE 1 TABLET EVERY DAY; Therapy: 08Jun2012 to (Evaluate:12Jun2018) Requested for: 27Dkr1702; Last Rx:31Lwo0306 Ordered 10. Polyethylene Glycol 3350 Oral Powder; MIX 1 CAPFUL (17GM) IN 8 OUNCES OF WATER, JUICE, OR TEA AND DRINK DAILY; Therapy: 85Adl9518 to (Evaluate:84Mnl7430) Requested for: 27Apr2017; Last Rx:[id number] Ordered 11. Venlafaxine HCl ER 75 MG Oral Capsule Extended Release 24 Hour; TAKE ONE CAPSULE BY MOUTH EVERY MORNING AND TAKE 2 CAPSULES EVERY EVENING; Therapy: 74Xum8401 to (Evaluate:94Oek4054) Requested for: 51Lja6067; Last Rx:[id number] Ordered 12. Zolpidem Tartrate 10 MG Oral Tablet; TAKE 1 TABLET BY MOUTH AT BEDTIME NEEDED; Therapy: 03Slk5491 to (Evaluate:78Drq8781) Requested for: 07Jan2018; Last Rx:[id number] Ordered Allergies 1. No Known Drug Allergies Assessment 1. Anxiety (300.00) (F41.9) 2. Chronic insomnia (780.52) (F51.04) Signatures Electronically signed by : Padmaja Leonardo, ; Jan 17 2018 4:09PM PIZZAMAKER (Author) documented in this encounter Plan of Treatment Upcoming Encounters Date Type Department Care Team (Late st Contact Info) Description 07/25/2024 10:00 AM PIZZAMAKER Office Visit [facility] Family & Internal Medicine [address] [address] Keyonna Armstrong APNP [address] [place] [address] 07/31/2024 10:15 AM PIZZAMAKER Office Visit [facility], [facility] [address] [place], [place] [address] Pepe Mitchell MD Three [facility]. [facility] [address] [place] [address] documented as of this encounter Visit Diagnoses Not on filedocumented in this encounter
--- OUTSIDE RECORDS SUMMARY | 2024-07-10 23:01 | XMS_ITS | Encounter Summary ---
Author Organization [facility] Address [address] [place] [address]. [place] [id number] [place] [address] Care Team Providers Care Underground Mining Section Foreman Name Role Phone Keyonna Armstrong Primary Care Provider [phone] Reason for Visit * Reason Onset Date Comments Medication 10/18/2018 Venlafaxine Clar ification Encounter Details Date Type Department Care Team (Late st Contact Info) Description 10/18/2018 Telephone [facility] Family & Internal Medicine [facility] [address] [place] [address] Keyonna Armstrong APNP [address] [place] [address] Medication (Venlafaxine Clarification) Social History Tobacco Use Types Packs/Day Years [...] Gender Identity Female 07/17/2022 10:27 AM APPLIQUE CUTTER Sexual Orientation Straight 07/17/2022 10 :27 AM APPLIQUE CUTTER documented as of this encounter Progress Notes * Rachel Urena, OPERATIONS AND MAINTENANCE MANAGER - 10/21/2018 2:49 PM CDT Pt notified about taking medication all at same time * Sherlyn Omalley RN - 10/21/2018 12:05 PM CDT LMTC 10/21/18 * YOBANI Cruz - 10/18/2018 4:14 PM CDT Yes, three times per day. ---find out how she is taking this---it's a 24 hr tab---can take all 3 atonce if she wants * Zita Cook MA - 10/18/2018 4:08 PM CDT Received a fax from [facility] regarding venlafaxine hcl ER 75mg cap, qd. Message states: Pt already picked this up, says it should be 3 times daily not once daily. If this is correct please send new rx with correct directions Should patient be taking this TID? documented in this encounter Plan of Treatment Upcoming Encounters Date Type Department Care Team (Late st Contact Info) Description 07/25/2024 10:00 AM APPLIQUE CUTTER Office Visit [facility] Family & Internal Medicine - [place] [address] [place] [address] Keyonna Armstrong APNP [address] [place] [address] 07/31/2024 10:15 AM APPLIQUE CUTTER Office Visit [facility], [facility] [address] [place] [address] Pepe Mitchell MD Three [facility]. [place] [address] [place] [address] documented as of this encounter Visit Diagnoses Not on filedocumented in this encounter Care Teams Underground Mining Section Foreman Relationship Specialty Start Date End Date Keyonna Armstrong APNP [address] [place] [address] PCP - General NURSE PRACTITIONER 05/06/18 documented as of this encounter
--- OUTSIDE RECORDS SUMMARY | 2024-07-10 23:01 | XMS_ITS | Encounter Summary ---
Author Organization [facility] Address [facility]. [place] [id number] [place] [address] Care Team Providers Care Tank Calibrator Name Role Phone Keyonna Armstrong Primary Care Provider [phone] Reason for Referral * Consultation (Routine) - Closed Specialty Diagnoses / Procedures Referred By Contgoldy t Referred To Contact OBGYN Diagnoses Well woman exam with routine gynecological exam Keyonna Armstrong APNP [address] [place] [address] Phone: tel: fax: Joana You MD [address] [place] [address] Phone: tel: fax: Referral ID Status Reason Start Date Expiration Date V isits Requested Visits Authorized [id number] Closed Specialty Services 09/13/2018 12/12/2018 3 3 IT UNION TELLER Reason for Visit * Reason Onset Date Comments Referral 08/29/2018 Encounter Details Date Type Department Care Team (Late st Contact Info) Description 08/29/2018 Telephone [facility] Family & Internal Medicine - [place] [address] [place] [address] Keyonna Armstrong APNP [address] [place] [address] Referral Social History Tobacco Use [...] CDT Gender Identity Female 07/17/2022 10:27 AM CREDIT UNION TELLER Sexual Orientation Straight 07/17/2022 10 :27 AM CREDIT UNION TELLER documented as of this encounter Progress Notes * Nenita Young MA - 08/29/2018 12:57 PM CST Referral placed -sjs IT UNION TELLER * YOBANI Cruz - 08/29/2018 11:47 AM CST I think a referral has already been placed. If not, please initiate one IT UNION TELLER * Precious Oviedo - 08/29/2018 10:59 AM CST Pt needs referral to net coordinator in [facility], stated that she could not remember their name, and [facility] so referral will need to be approved through them She also advised she is on last pack of pills and will need to see one soon IT UNION TELLER IT UNION TELLER documented in this encounter Plan of Treatment Upcoming Encounters Date Type Department Care Team (Late st Contact Info) Description 07/25/2024 10:00 AM CREDIT UNION TELLER [facility] Family & Internal Medicine - [place] [address] [place] [address] Keyonna Armstrong APNP [facility] [place] [address] 07/31/2024 10:15 AM CREDIT UNION TELLER Office Visit [facility], [facility] [address] [place] [address] Pepe Mitchell MD Three [facility]. [facility] [address] [place] [address] Scheduled Referrals Name Type Priority Associated Diagnoses Orde r Schedule Ambulatory referral to Obstetrics/Gynecology Referral Routine Well woman exam with routine gynecological exam Ordered: 08/29/2018 documented as of this encounter Visit Diagnoses Diagnosis Well woman exam with routine gynecological exam- Primary Routine gynecological examination documented in this encounter Care Teams Tank Calibrator Relationship Specialty Start Date End Date Keyonna Armstrong APNP [address] [place] [address] PCP - General NURSE PRACTITIONER 05/06/18 documented as of this encounter
--- OUTSIDE RECORDS SUMMARY | 2024-07-10 23:01 | XMS_ITS | Encounter Summary ---
Author Organization [facility] Address [address] [place] [address]. [place], [place] [address] [place] [address] Care Team Providers Care Beach Patrol Lieutenant Name Role Phone Keyonna Armstrong Primary Care Provider [phone] Reason for Visit * Reason Onset Date Comments Medication 09/24/2018 Encounter Details Date Type Department Care Team (Late st Contact Info) Description 09/24/2018 Telephone [facility] Family & Internal Medicine [facility] [address] [place] [address] Keyonna Armstrong APNP [address] [place] [address] Medication Social History Tobacco Use [...] CDT Gender Identity Female 07/17/2022 10:27 AM PHOTO INTERN Sexual Orientation Straight 07/17/2022 10 :27 AM PHOTO INTERN documented as of this encounter Progress Notes * Nenita Young MA - 09/24/2018 4:32 PM CST Pharmacy notified and Keyonna made aware-sjs O INTERN * Kel Solo MD - 09/24/2018 3:08 PM CST Okay for refill just make sure that Keyonna is aware she is asking for refills. O INTERN * Indy Kang - 09/24/2018 9:16 AM CST Pt needs refills of lorazepam and zolpidem. Written in supervising physician's name O INTERN documented in this encounter Plan of Treatment Upcoming Encounters Date Type Department Care Team (Late st Contact Info) Description 07/25/2024 10:00 AM PHOTO INTERN Office Visit [facility] Family & Internal Medicine [facility] [address] [place] [address] Keyonna Armstrong APNP [address] [place] [address] 07/31/2024 10:15 AM PHOTO INTERN Office Visit [facility], [facility] [address] [place] [address] Pepe Mitchell MD Three [facility]. [facility] [address] [place] [address] documented as of this encounter Visit Diagnoses Not on filedocumented in this encounter Care Teams Beach Patrol Lieutenant Relationship Specialty Start Date End Date Keyonna Armstrong APNP [address] [place] [address] PCP - General NURSE PRACTITIONER 05/06/18 documented as of this encounter
--- OUTSIDE RECORDS SUMMARY | 2024-07-10 23:01 | XMS_ITS | Encounter Summary ---
Author Organization [facility] Address [address] [place] [address]. [place] [id number] [place] [address] Care Team Providers Care Ham Curer Name Role Phone Keyonna Armstrong Primary Care Provider [phone] Reason for Visit * Reason Onset Date Comments Refill Request 09/19/2018 Metformin Encounter Details Date Type Department Care Team (Late st Contact Info) Description 09/19/2018 Telephone [facility] Family & Internal Medicine [facility] [address] [place] [address] Keyonna Armstrong APNP [address] [place] [address] Refill Request (Metformin ) Social History Tobacco Use Types Packs/Day [...] CDT Gender Identity Female 07/17/2022 10:27 AM ELECTRICAL SYSTEMS DRAFTER Sexual Orientation Straight 07/17/2022 10 :27 AM ELECTRICAL SYSTEMS DRAFTER documented as of this encounter Progress Notes * Zita Cook MA - 09/19/2018 3:37 PM CST Received a faxed request for Metformin 500mg 1 tabs QAM and 2 tabs QHS #[id number] Last OV 09/03/18 TRICAL SYSTEMS DRAFTER documented in this encounter Plan of Treatment Upcoming Encounters Date Type Department Care Team (Late st Contact Info) Description 07/25/2024 10:00 AM ELECTRICAL SYSTEMS DRAFTER Office Visit [facility] Family & Internal Medicine - [place] [address] [place] [address] Keyonna Armstrong APNP [address] [place] [address] 07/31/2024 10:15 AM ELECTRICAL SYSTEMS DRAFTER Office Visit [facility], [facility] [address] [place], [place] [address] Pepe Mitchell MD [facility]. [facility] [address] [place], [place] [id number] documented as of this encounter Visit Diagnoses Diagnosis DM (diabetes mellitus) (CMS/HCC [facility]/HCC) Type II or unspecified type diabetes mellitus without mention of complication, not stated as uncontrolled documented in this encounter Care Teams Ham Curer Relationship Specialty Start Date End Date Keyonna Armstrong APNP [facility] [place] [address] PCP - General NURSE PRACTITIONER 05/06/18 documented as of this encounter
--- OUTSIDE RECORDS SUMMARY | 2024-07-10 23:01 | XMS_ITS | Encounter Summary ---
Author Organization [facility] Address [address] [place] [address]. [place], [place] [address] [place] [address] Care Team Providers Care Wire Preparation Worker Name Role Phone Unavailable Primary Care Provider Unavailabl e Encounter Details Date Type Department Care Team (Late st Contact Info) Description 05/08/2017 Abstract [facility] Family Medicine - [address] [address] Royer Hidalgo MD [address] [facility] [place] [address] Social History Tobacco Use Types Packs/Day Years Used Date Smoking Tobacco: Never Assessed Comments Unknown Sex and Gender Information Value Date Recorded Sex Assigned at Not on file Legal Sex Female 5:47 PM CDT Gender Identity Female 07/17/2022 10:27 AM GROUNDS AND NURSERY SPECIALIST Sexual Orientation Straight 07/17/2022 10 :27 AM GROUNDS AND NURSERY SPECIALIST documented as of this encounter Last Filed Vital Signs Vital Sign Reading Time Taken Comments Blood Pressure 145/95 05/08/2017 9:22 AM CDT Pulse 105 05/08/2017 8:55 AM CDT Temperature - - Respiratory Rate - - Oxygen Saturation - - Inhaled Oxygen Concentration - - Weight 137.9 kg (304 lb) 05/08/2017 8:55 AM CDT Height 163.8 cm (5' 4.5) 05/08/2017 8:55 AM CDT Body Mass Index 51.38 05/08/2017 8:55 AM CDT documented in this encounter Progress Notes * Royer Hidalgo MD - 05/08/2017 9:00 AM CDT Reason For Visit Health Pathology Secretary Complaint 46 year old female here for annual physical. History of Present Illness HPI Free Text: 46-year-old female is here for annual wellness exam. She has no specific complaints or concerns today except for persistent issues with urination. She will get a sudden urge to urinate, but then she has a lot of hesitancy and decreased force of stream. Afterward, she has a feeling of incomplete voiding. She does not get any urge or stress incontinence. She did not respond to Detrol LA 4 mg once daily. The patient blood pressure is elevated today, but she denies headache dizziness, shortness of breath, chest pain, and leg swelling. She takes her atenolol and hydrochlorothiazide as prescribed. She is a nonsmoker. See assessment and plan below for wellness topics discussed. Review of Systems Constitutional: negative. Head and Face: negative. Eyes: negative. ENT: negative. Cardiovascular: negative. Respiratory: negative. Gastrointestinal: negative. Genitourinary: as noted in HPI. Musculoskeletal: negative. Psychiatric: negative. Hematologic and Lymphatic: negative. Neurological Negative. Endocrine Negative. Active Problems 1. Depression (311) (F32.9) 2. Esophageal reflux (530.81) (K21.9) 3. History of motion sickness (V13.89) (Z87.898) 4. Hypertension (401.9) (I10) 5. Impaired fasting glucose (790.21) (R73.01) 6. Morbid obesity (278.01) (E66.01) 7. Obstructive sleep apnea (327.23) (G47.33) 8. Right ovarian cyst (620.2) (N83.201) Surgical History 1. History of Gastric Surgery For Morbid Obesity Family History 1. Family history of Hypertension (V17.49) 2. Family history of Diabetes Mellitus (V18.0) 3. Family history of Stroke Syndrome (V17.1) Social History ?? Never a smoker Immunizations Influenza --- Series1: 19-Jun-2012; Series2: 25-Apr-2016 Tdap --- Series1: 25-Apr-2016 Current Meds 1. Atenolol 50 MG Oral Tablet; TAKE 1 TABLET BY MOUTH TWICE A DAY NEEDED; Therapy: 84Lls0243 to (Evaluate:80Gnv8511) Requested for: 09Jan2017; Last Rx:09Jan2017 Ordered 2. Enpresse-28 Oral Tablet; TAKE 1 TABLET BY MOUTH EVERY DAY; Therapy: 30May2012 to (Evaluate:23Jul2017) Requested for: 29Wmj0451; Last Rx:[id number] Ordered 3. HydroCHLOROthiazide 25 MG Oral Tablet; TAKE ONE TABLET BY MOUTH EVERY DAY; Therapy: 20May2012 to (Evaluate:82Fkz7809) Requested for: 52Wzf4203; Last Rx:[id number] Ordered 4. Ibuprofen 800 MG Oral Tablet; TAKE 1 TABLET 3 TIMES DAILY WITH FOOD NEEDED for pain; Therapy: 11Aug2014 to (Evaluate:12May2016) Requested for: 71Koc7782; Last Rx:09Kyc1946 Ordered 5. LORazepam 0.5 MG Oral Tablet; TAKE 1 TABLET BY MOUTH 3 TIMES A DAY NEEDED; Therapy: 94Lrv3057 to (Evaluate:25May2017) Requested for: 25Apr2017; Last Rx:[id number] Ordered 6. MetFORMIN HCl - 500 MG Oral Tablet; TAKE 1 TABLET EVERY MORNING AND THEN TAKE 2 TABLETS AT BEDTIME; Therapy: 24Dec2011 to (Evaluate:91Ech6831) Requested for: 88Tsg9676; Last Rx:12Fzz0847 Ordered 7. Methocarbamol 750 MG Oral Tablet; TAKE 1 TO 2 TABLETS 3 TIMES DAILY NEEDED FOR MUSCLE SPASM; Therapy: 11Aug2014 to (Evaluate:38Dtl1121) Requested for: 83Nzv4510; Last Rx:15Yzw1262 Ordered 8. Ondansetron 4 MG Oral Tablet Disintegrating; DISSOLVE 1-2 TABLETS ON TONGUE EVERY 8 HOURS NEEDED FOR NAUSEA ..PATIENT NEEDS APPOINTMENT; Therapy: 02Mar2015 to (Evaluate:25Nov2016) Requested for: 20Nov2016; Last Rx:20Nov2016 Ordered 9. Pantoprazole Sodium 40 MG Oral Tablet Delayed Release; TAKE ONE TABLET BY MOUTH EVERY DAY; Therapy: 08Jun2012 to (Evaluate:15Jun2017) Requested for: 20Jun2016; Last Rx:20Jun2016 Ordered 10. Polyethylene Glycol 3350 Oral Powder; MIX 1 CAPFUL (17GM) IN 8 OUNCES OF WATER, JUICE, OR TEA AND DRINK DAILY; Therapy: 04Tfo8886 to (Evaluate:24Oct2017) Requested for: 27Apr2017; Last Rx:55Uhe9503 Ordered 11. Tolterodine Tartrate ER 2 MG Oral Capsule Extended Release 24 Hour; TAKE ONE CAPSULE BY MOUTH EVERY DAY; Therapy: 79Rof8966 to (Evaluate:41Qom3072) Requested for: 10Lnt6758; Last Rx:70Rhx9115 Ordered 12. Venlafaxine HCl ER 75 MG Oral Capsule Extended Release 24 Hour; TAKE ONE CAPSULE BY MOUTH EVERY MORNING AND TAKE 2 CAPSULES BY MOUTH EVERY EVENING; Therapy: 13May2012 to (Evaluate:80War3947) Requested for: 61Wbr8334; Last Rx:15Dwi7784 Ordered 13. Vitamin D3 1000 UNIT Oral Tablet; Therapy: (Recorded:23Sep2013) to Recorded 14. Zolpidem Tartrate 10 MG Oral Tablet; TAKE 1 TABLET AT BEDTIME NEEDED FOR INSOMNIA; Therapy: 51Uiv1932 to (Evaluate:70Yne8479); Last Rx:95Oie5438 Ordered Allergies 1. No Known Drug Allergies Vitals Signs Systolic: 145 Diastolic: 95 Temperature: 97.4 F Heart Rate: 105 Respiration: 18 Systolic: 145 Diastolic: 100 O2 Saturation: 98 Height: 5 ft 4.5 in Weight: 304 lb BMI Calculated: 51.38 BSA Calculated: 2.35 Physical Exam Constitutional General appearance: No acute distress, well appearing and well nourished. Eyes Conjunctiva and lids: No swelling, erythema or discharge. Pupils and irises: Equal, round and reactive to light. Ears, Nose, Mouth, and Throat External inspection of ears and nose: Normal. Otoscopic examination: Tympanic membranes translucent with normal light reflex. Canals patent without erythema. Oropharynx: Normal with no erythema, edema, exudate or lesions. Pulmonary Respiratory effort: No increased work of breathing or signs of respiratory distress. Auscultation of lungs: Clear to auscultation. Cardiovascular Auscultation of heart: Normal rate and rhythm, normal S1 and S2, without murmurs. Examination of extremities for edema and/or varicosities: Normal. Abdomen Abdomen: Non-tender, no masses. Lymphatic Palpation of lymph nodes in neck: No lymphadenopathy. Musculoskeletal Gait and station: Normal. Digits and nails: Normal without clubbing or cyanosis. Skin Skin and subcutaneous tissue: Normal without rashes or lesions. Neurologic Cranial nerves: Cranial nerves 2-12 intact. Psychiatric Orientation to person, place, and time: Normal. Mood and affect: Normal. Assessment 1. Encounter for preventive health examination (V70.0) (Z00.00) 2. Urinary retention (788.20) (R33.9) 3. Right ovarian cyst (620.2) (N83.201) 4. Hypertension (401.9) (I10) 5. Impaired fasting glucose (790.21) (R73.01) 6. Dyslipidemia (272.4) (E78.5) 7. Depression (311) (F32.9) 8. Morbid obesity (278.01) (E66.01) Plan Dyslipidemia, Hypertension, Impaired fasting glucose 1. *A1C In Office; Status:Active; Requested for:08May2017; 2. CBC W Differential; Status:Hold For - Manual Activation; Requested for:08May2017; 3. Compr Metabolic Prof ( CMP ); Status:Hold For - Manual Activation; Requested for:08May2017; 4. Lipid Profile; Status:Hold For - Manual Activation; Requested for:08May2017; Hypertension 5. Atenolol 50 MG Oral Tablet 6. Metoprolol Succinate ER 100 MG Oral Tablet Extended Release 24 Hour; TAKE 1 TABLET DAILY PMH: Overactive bladder 7. Tolterodine Tartrate ER 2 MG Oral Capsule Extended Release 24 Hour Right ovarian cyst, Urinary retention 8. Obstetrics/Gynecology Referral Outpatient 46 yo female with dysfunctional voiding symptoms and lower pelvic pain. History of ovarian cysts. Please eval/tx as indicated. Status: Need Information - Financial Authorization Requested for: [id number] [place] [employer]- Please schedule with Dr. Street Unlinked 9. Vitamin D3 1000 UNIT Oral Tablet Discussion/Summary MEDICARE WELLNESS EXAM - Med list reconciled. - Problem list updated. - Medicare wellness form reviewed. - Pap/Mammo: Per [employer]. Ot to schedule [facility]. - Colon CA Screening: Start at age 50. - Fasting Labs: Ordered. Will come back, not fasting today. - Flu Shot: Patient declined. - Tdap: Given APR 2016. - PNA / Shingles Vaccines: Not indicated. - Discussed healthy diet and regular exercise. - Mood stable, no significant depressive sx. - Low fall risk. - Send to UroGyn for persistent voiding sx. - D/C Atenolol and start metoprolol ER. - Check home BPs and let us know if averaging > 140/90. F/U in 6 mos, sooner if needed (i.e HTN). Signatures Electronically signed by : Royer Hidalgo M.D.; May 08 2017 9:40AM GROUNDS AND NURSERY SPECIALIST (Author) documented in this encounter Plan of Treatment Upcoming Encounters Date Type Department Care Team (Late st Contact Info) Description 07/25/2024 10:00 AM GROUNDS AND NURSERY SPECIALIST Office Visit [facility] Family & Internal Medicine - [address] [phone] Keyonna Armstrong APNP [address] [place] [address] 07/31/2024 10:15 AM GROUNDS AND NURSERY SPECIALIST Office Visit [facility], [facility] [address] [place] [address] ePpe Mitchell MD Three [facility]. [facility] [address] [place] [address] documented as of this encounter Visit Diagnoses Not on filedocumented in this encounter
--- OUTSIDE RECORDS SUMMARY | 2024-07-10 23:01 | XMS_ITS | Encounter Summary ---
Author Organization [facility] Address [address] [place] [address]. [place], [place] [address] [place] [address] Care Team Providers Care Firesetter Name Role Phone Royer Hidalgo MD Primary Care Provider [phone] Royer Hidalgo MD Primary Care Provider [phone] Encounter Details Date Type Department Care Team (Late st Contact Info) Description 10/25/2015 Abstract [facility] Family Medicine - [address] [address] Royer Hidalgo MD [address] [facility] [place] [address] Social History Tobacco Use Types Packs/Day Years Used Date Smoking Tobacco: Never Assessed Comments Unknown Sex and Gender Information Value Date Recorded Sex Assigned at Not on file Legal Sex Female 5:47 PM CDT Gender Identity Female 07/17/2022 10:27 AM INSTRUCTIONAL WRITER Sexual Orientation Straight 07/17/2022 10 :27 AM INSTRUCTIONAL WRITER documented as of this encounter Last Filed Vital Signs Vital Sign Reading Time Taken Comments Blood Pressure 135/86 10/25/2015 11:25 AM CDT Pulse 83 10/25/2015 11:25 AM CDT Temperature - - Respiratory Rate - - Oxygen Saturation - - Inhaled Oxygen Concentration - - Weight 134.3 kg (296 lb) 10/25/2015 11:25 AM CDT Height 167.6 cm (5' 6) 10/25/2015 11:25 AM CDT Body Mass Index 47.78 10/25/2015 11:25 AM CDT documented in this encounter Progress Notes * Royer Hidalgo MD - 10/25/2015 11:15 AM CDT Reason For Visit Chronic Recheck Visit Chief Complaint Pt is here for follow up on meds History of Present Illness HPI Free Text: 45 yo female is here for a 6 month F/U on chronic medical conditions. Overall she is doing well. She is tolerating her current medications well w/o side effects. She has tried multiple different sleeping pills and Ambien has worked the best. She has taken 10mg on and off for many years and does nothave any significant side effects. She has a very difficult time sleeping w/o it. She has recently started exercising and she eats fairly healthy. She has no specific complaints or concerns today. Review of Systems Constitutional: Normal. Cardiovascular: Normal. Respiratory: Normal. Gastrointestinal: Normal. Genitourinary: Normal. Integumentary: Normal. Neurological: Normal. Psychiatric: Normal. Active Problems 1. Anxiety (300.00) (F41.9) 2. Constipation (564.00) (K59.00) 3. Depression (311) (F32.9) 4. Diabetic peripheral neuropathy (250.60,357.2) (E11.42) 5. Esophageal reflux (530.81) (K21.9) 6. History of motion sickness (V13.89) (Z87.898) 7. Hypertension (401.9) (I10) 8. Insomnia (780.52) (G47.00) 9. Morbid obesity (278.01) (E66.01) 10. Obstructive sleep apnea (327.23) (G47.33) 11. Right ovarian cyst (620.2) (N83.20) 12. Type 2 diabetes mellitus (250.00) (E11.9) Past Medical History 1. Anxiety (300.00) (F41.9) Surgical History 1. History of Gastric Surgery For Morbid Obesity Family History Mother 1. Family history of Hypertension (V17.49) Father 2. Family history of Diabetes Mellitus (V18.0) Maternal Grandmother 3. Family history of Stroke Syndrome (V17.1) Social History ?? Never a smoker Current Meds 1. Atenolol 50 MG Oral Tablet; TAKE 1 TABLET BY MOUTH TWICE A DAY NEEDED; Therapy: 19Xlq6135 to (Evaluate:68Jvv8799) Requested for: 09Aug2015; Last Rx:09Aug2015 Ordered 2. CPAP; USE CPAP MACHINE DIRECTED; Therapy: 94Rtb5930 to (Last Rx:48Bmb6301) Ordered 3. Enpresse-28 Oral Tablet; TAKE 1 TABLET BY MOUTH EVERY DAY; Therapy: 30May2012 to (Evaluate:94Jfb0390) Requested for: 37Hoo9406; Last Rx:37Ilg2400 Ordered 4. Hydrochlorothiazide 25 MG Oral Tablet; TAKE ONE TABLET BY MOUTH EVERY DAY; Therapy: 20May2012 to (Evaluate:58Twc6018) Requested for: 90Pqi5138; Last Rx:33Bbx4404 Ordered 5. Ibuprofen 800 MG Oral Tablet; TAKE 1 TABLET 3 TIMES DAILY WITH FOOD NEEDED for pain; Therapy: 11Aug2014 to (Evaluate:67Iao1750) Requested for: 24Jyf2009; Last Rx:09Sbw1132 Ordered 6. LORazepam 0.5 MG Oral Tablet; TAKE 1 TABLET BY MOUTH 3 TIMES A DAY NEEDED; Therapy: 02Joe9109 to (Evaluate:37Oym8747) Requested for: 08Oct2015; Last Rx:08Oct2015 Ordered 7. MetFORMIN HCl - 500 MG Oral Tablet; TAKE 1 TABLET EVERY MORNING AND THEN TAKE 2 TABLETS AT BEDTIME; Therapy: 24Dec2011 to (Evaluate:08Aug2016) Requested for: 14Aug2015; Last Rx:47Ugv5652 Ordered 8. Methocarbamol 750 MG Oral Tablet; TAKE 1 TO 2 TABLETS 3 TIMES DAILY NEEDED FOR MUSCLE SPASM; Therapy: 11Aug2014 to (Evaluate:92Qsk3263) Requested for: 48Klr5879; Last Rx:60Lla4188 Ordered 9. Multivitamins TABS; Therapy: (Recorded:23Sep2013) to Recorded 10. Ondansetron 4 MG Oral Tablet Dispersible; DISSOLVE 1-2 TABLETS ON TONGUE EVERY 8 HOURS NEEDED FOR NAUSEA; Therapy: 02Mar2015 to (Evaluate:84Boj1304) Requested for: 37Lux1728; Last Rx:47Vyr8816 Ordered 11. Pantoprazole Sodium 40 MG Oral Tablet Delayed Release; TAKE ONE TABLET BY MOUTH EVERY DAY; Therapy: 08Jun2012 to (Evaluate:24Dec2015) Requested for: 29Dec2014; Last Rx:29Dec2014 Ordered 12. Polyethylene Glycol 3350 Oral Powder; MIX 1 CAPFUL (17GM) IN 8 OUNCES OF WATER, JUICE, OR TEA AND DRINK DAILY; Therapy: 31Srz4794 to (Evaluate:31Jul2016) Requested for: 06Aug2015; Last Rx:06Aug2015 Ordered 13. Venlafaxine HCl ER 75 MG Oral Capsule Extended Release 24 Hour; TAKE ONE CAPSULE BY MOUTH EVERY MORNING AND TAKE 2 CAPSULES BY MOUTH EVERY EVENING; Therapy: 13May2012 to (Evaluate:08Aug2016) Requested for: 14Aug2015; Last Rx:14Aug2015 Ordered 14. Vitamin D3 1000 UNIT Oral Tablet; Therapy: (Recorded:23Sep2013) to Recorded 15. Zolpidem Tartrate 10 MG Oral Tablet; TAKE 1 TABLET BY MOUTH AT BEDTIME NEEDED FOR SLEEP; Therapy: 35Weq7534 to (Evaluate:43Abx8212) Requested for: 08Oct2015; Last Rx:08Oct2015 Ordered Allergies 1. No Known Drug Allergies Immunizations Influenza --- Series1: 19Jun2012 Vitals Recorded: 25Oct2015 11:25AM Heart Rate 83 Respiration 16 Systolic 135 Diastolic 86 Height 5 ft 6 in Weight 296 lb BMI Calculated 47.78 BSA Calculated 2.36 Physical Exam Constitutional General appearance: No acute [...] varicosities: Normal. Abdomen Abdomen: Non-tender, no masses. Liver and spleen: No hepatomegaly or splenomegaly. Lymphatic Palpation of lymph nodes in neck: No lymphadenopathy. Musculoskeletal Gait and station: Normal. Digits and nails: Normal without clubbing or cyanosis. Skin Skin and subcutaneous tissue: Normal without rashes or lesions. Neurologic Cranial nerves: Cranial nerves 2-12 intact. Psychiatric Orientation to person, place, and time: Normal. Mood and affect: Normal. Assessment 1. Type 2 diabetes mellitus (250.00) (E11.9) 2. Hypertension (401.9) (I10) 3. Morbid obesity (278.01) (E66.01) 4. Anxiety (300.00) (F41.9) 5. Constipation (564.00) (K59.00) 6. Depression (311) (F32.9) 7. Insomnia (780.52) (G47.00) Plan Depression 1. From Venlafaxine HCl ER 75 MG Oral Capsule Extended Release 24 Hour TAKE ONE CAPSULE BY MOUTH EVERY MORNING AND TAKE 2 CAPSULES BY MOUTH EVERY EVENING To Venlafaxine HCl ER 75 MG Oral Capsule Extended Release 24 Hour TAKE 3 CAPSULES ONCE A DAY Rx By: Royer Hidalgo; Dispense: 30 Days ; #:90 Capsule Extended Release 24 Hour; Refill: 5; For: Depression; TEX = N; Record Health Maintenance 2. Ondansetron 4 MG Oral Tablet Dispersible Rx By: Royer Hidalgo; Dispense: 5 Days ; #:15 TAB; Refill: 0; For: Health Maintenance; TEX = N; Sent To: [id number] Hypertension, Morbid obesity, Type 2 diabetes mellitus 3. *A1C In Office; Status:Hold For - Exact Date; Requested for:Approx 25Apr2016; Perform:In Office; Due:24Nov2015;Ordered; For:Hypertension, Morbid obesity, Type 2 diabetes mellitus; Ordered By:Royer Hidalgo; 4. CBC W Differential; Status:Hold For - Exact Date,Manual Activation; Requested for:Approx 25Apr2016; Perform:[facility]; Due:24Nov2015;Ordered; For:Hypertension, Morbid obesity, Type 2 diabetes mellitus; Ordered By:Royer Hidalgo; 5. Compr Metabolic Prof ( CMP ); Status:Hold For - Exact Date,Manual Activation; Requested for:Approx 25Apr2016; Perform:[facility]; Due:24Nov2015;Ordered; For:Hypertension, Morbid obesity, Type 2 diabetes mellitus; Ordered By:Royer Hidalgo; 6. Lipid W Reflex DLDL; Status:Hold For - Exact Date,Manual Activation; Requested for:Approx 25Apr2016; Perform:[facility]; Due:24Nov2015;Ordered; For:Hypertension, Morbid obesity, Type 2 diabetes mellitus; Ordered By:Royer Hidalgo; 7. TSH W Reflex Free T4; Status:Hold For - Exact Date,Manual Activation; Requested for:Approx 25Apr2016; Perform:[facility]; Due:79Zqq3628;Ordered; For:Hypertension, Morbid obesity, Type 2 diabetes mellitus; Ordered By:Royer Hidalgo; Insomnia 8. Zolpidem Tartrate 10 MG Oral Tablet; TAKE 1 TABLET BY MOUTH AT BEDTIME NEEDED FOR SLEEP Rx By: Royer Hidalgo; Dispense: 30 Days ; #:30 Tablet; Refill: 5; For: Insomnia; TEX = N; Print Rx Called into [facility] - LM /tjt Called into [facility] - LM /tjt Called into [facility] - LM /tjt Called into [facility] - LM /tjt Called to [facility] per Dr Hidalgo, #30 with 2 refills-MAB Called in #30 to [facility] lunesta not covered /tjt Called into [facility] /tjt Called to [facility] [place] Obstructive sleep apnea 9. CPAP Rx By: Royer Hidalgo; Dispense: 0 Days ; #:1; Refill: 0; For: Obstructive sleep apnea; TEX = N; PrintRx; Msg to Pharmacy: CPAP SUPPLIES Type 2 diabetes mellitus 10. MetFORMIN HCl - 500 MG Oral Tablet Rx By: Royer Hidalgo; Dispense: 30 Days ; #:90 TAB; Refill: 11; For: Type 2 diabetes mellitus; TEX = N; Transmitted To: [id number] 11. MetFORMIN HCl ER 500 MG Oral Tablet Extended Release 24 Hour; TAKE 3 TABLETS EVERY MORNING WITH BREAKFAST Rx By: Royer Hidalgo; Dispense: 0 Days ; #:90 Tablet Extended Release 24 Hour; Refill: 5; For: Type 2diabetes mellitus; TEX = N; Record Unlinked 12. Multivitamins TABS Dispense: 0 Days ; #: Sufficient TABS; Refill: 0; TEX = N; Record; Last Updated By: Royer Hidalgo; 10/25/2015 11:42:54 AM Discussion/Summary Reviewed/updated problem and medication lists. Chronic conditions well-controlled. Discussed healthy diet / regular exercise. Discussed sleep hygiene. May take Effexor ER at one time. May take Metformin ER at one time. F/U in 6 mos with fasting labs prior, sooner if needed. Signatures Electronically signed by : Royer Hidalgo M.D.; Oct 25 2015 12:32PM INSTRUCTIONAL WRITER (Author) documented in this encounter Plan of Treatment Upcoming Encounters Date Type Department Care Team (Late st Contact Info) Description 07/25/2024 10:00 AM INSTRUCTIONAL WRITER Office Visit [facility] Family & Internal Medicine - [address] [phone] Keyonna Armstrong APNP [address] [place] [address] 07/31/2024 10:15 AM INSTRUCTIONAL WRITER Office Visit [facility], [facility] [address] [place] [address] Pepe Mitchell MD Three [facility]. [facility] [address] [place] [address] documented as of this encounter Visit Diagnoses Not on filedocumented in this encounter Care Teams Firesetter Relationship Specialty Start Date End Date Royer Hidalgo MD PCP - General 04/25/16 09/14/16 Royer Hidalgo MD PCP - General 05/14/15 04/24/16 documented as of this encounter
--- OUTSIDE RECORDS SUMMARY | 2024-07-10 23:01 | XMS_ITS | Encounter Summary ---
Author Organization [facility] Address [facility] [place] [place], [place] [id number] [place] [id number] Care Team Providers Care Call Box Wirer Name Role Phone Unavailable Primary Care Provider Unavailabl e Encounter Details Date Type Department Care Team (Latest Contact Info) Description 10/17/2017 Abstract [facility] Keyonna Armstrong APNP [address] [place] [address] Social History Tobacco Use Types Packs/Day Years Used Date Smoking Tobacco: Never Assessed Comments Unknown Sex and Gender Information Value Date Recorded Sex Assigned at Not on file Legal Sex Female 5:47 PM CDT Gender Identity Female 07/17/2022 10:27 AM [employer] Sexual Orientation Straight 07/17/2022 10 :27 AM [employer] documented as of this encounter Plan of Treatment Upcoming Encounters Date Type Department Care Team (Late st Contact Info) Description 07/25/2024 10:00 AM NARR[employer] GAUGE [employer]RAKEMAN Office Visit [facility] Medical [facility] [place] [address] [place] [address] Keyonna Armstrong APNP [address] [place] [address] 07/31/2024 10:15 AM NARR[employer] GAU[employer] BRAKEMAN Office Visit [facility], [facility] [address] [place], [place] [address] Pepe Mitchell MD [facility]. [facility] [address] [place], [place] [id number] documented as of this encounter Procedures Procedure Name Priority Date/Time Associated Diagnosis Comments TSH W/REFLEX Routine 10/17/2017 11:18 AM CDT METANEPHRINES FRACTIONATED PLASMA Routine 10/17/2017 11:18 AM CDT COMPREHENSIVE METABOLIC PANEL Routine 10/17/2017 11:18 AM CDT CBC W/DIFF AUTOMATED Routine 10/17/2017 11:18 AM CDT RENIN ACTIVITY Routine 10/17/2017 11:18 AM CDT ALDOSTERONE Routine 10/17/2017 11:18 AM CDT documented in this encounter Results * (ABNORMAL) RENIN ACTIVITY (10/17/2017 11:18 AM CDT) Pathologist [facility] PLASMA RENIN ACTIVITY 26.99(H) 0.25 - 5.82 ng/mL/h [facility] TO EPIC CONVERSION Comment: Result Comment: ?? This test was developed and its analytical performance characteristics have been determined by [facility]. It has not been cleared or approved by FDA. This assay has been validated pursuant to the CLIA regulations and is used for clinical purposes. Test Performed at: [facility] [address] [place], [place] ??[phone] ? SONYA BLANK MD,PHD,EKATERINA 10/17/2017 11:1 8 AM CDT 10/17/2017 11:18 AM CDT Narrative [facility] TO EPIC CONVERSION - 10/21/2017 11:00 PM CDT Result Communication: Call patient with results [facility] Final Resul t [facility] TO EPIC CONVERSION * (ABNORMAL) CBC W/DIFF AUTOMATED (10/17/2017 11:18 AM CDT) Pathologist [facility] WBC 12.1(H) 3.8 - 10.8 [facility] TO EPIC CONVERSION Comment:Result Comment: UNIT S: Thousand/uL Red Blood Cell Count 4.72 3.80 - 5.10 Million/uL [facility] TO EPIC CONVERSION HGB 13.8 11.7 - 15.5 g/dL [facility] TO EPIC CONVERSION HCT 42.3 35.0 - 45.0 % [facility] TO [facility]IC CONVERSION MCV 89.6 80.0 - 100.0 fL [facility] TO EPIC CONVERSION MCH (QHPE) 29.2 27.0 - 33.0 pg [facility] TO EPIC CONVERSION MCHC 32.6 32.0 - 36.0 g/dL [facility] TO EPIC CONVERSION RDW (QHPE) 13.6 11.0 - 15.0 % [facility] TO EPIC CONVERSION PLT 297 140 - 400 [facility] T O EPIC CONVERSION Comment:Result Comment: UNIT S: Thousand/uL MPV 10.2 7.5 - 12.5 fL [facility] TO EPIC CONVERSION ABS. NEUTROPHILS 7393 1500 - 7800 cells/uL [facility] TO EPIC CONVERSION ABS. LYMPHOCYTES 3485 850 - 3900 cells/uL [facility] TO EPIC CONVERSION ABS. MONOCYTES 1053(H) 200 - 950 cells/uL [facility] TO EPIC CONVERSION ABS. EOSINOPHILS 121 15 - 500 cells/uL [facility] TO EPIC CONVERSION ABS. BASOPHILS 48 0 - 200 cells/uL [facility] TO EPIC CONVERSION SEG NEUTROPHILS 61.1 % [facility] TO EPIC CONVERSION LYMPHOCYTES 28.8 % [facility] TO EPIC CONVERSION MONOCYTES 8.7 % [facility] T O EPIC CONVERSION EOSINOPHILS 1.0 % [facility] TO EPIC CONVERSION BASOPHILS 0.4 % [facility] T O EPIC CONVERSION Comment: Result Comment: Test Performed at: [facility] ??[phone] ? GENE VILLAR DO,MPH 10/17/2017 11:1 8 AM CDT 10/17/2017 11:18 AM CDT Narrative [facility] TO EPIC CONVERSION - 10/21/2017 11:00 PM CDT Result Communication: Call patient with results Keyonna [facility] Final Resul t [facility] TO EPIC CONVERSION * COMPREHENSIVE METABOLIC PANEL (10/17/2017 11:18 AM CDT) [facility] GLUCOSE 91 65 - 99 mg/dL [facility] TO EPIC CONVERSION Comment: Result Comment: ? Fasting reference interval BUN 19 7 - 25 mg/dL [facility] TO EPIC CONVERSION CREATININE S/P/B 0.80 0.50 - 1.10 mg/dL [facility] TO EPIC CONVERSION EGFR NON-AFR. AMER. 87 > OR = 60 [facility] TO [facility]IC CONVERSION Comment:Result Comment: UNIT S: mL/min/1.73m2 EGFR AFR. AMER. 100 > OR = 60 [facility] TO EPIC CONVERSION Comment:Result Comment: UNIT S: mL/min/1.73m2 BUN CREATININE RATIO NOT APPLICABLE 6 - 22 (calc) [facility] TO [facility]IC CONVERSION SODIUM S/P/B 139 135 - 146 mmol/L [facility] TO EPIC CONVERSION POTASSIUM S/P/B 4.2 3.5 - 5.3 mmol/L [facility] TO EPIC CONVERSION CHLORIDE S/P/B 102 98 - 110 mmol/L [facility] TO EPIC CONVERSION CO2 29 20 - 31 mmol/L [facility] TO EPIC CONVERSION CALCIUM S/P/B 9.6 8.6 - 10.2 mg/dL [facility] TO EPIC CONVERSION PROTEIN 7.0 6.1 - 8.1 g/dL [facility] TO EPIC CONVERSION ALBUMIN S/P/B 4.0 3.6 - 5.1 g/dL [facility] TO EPIC CONVERSION GLOBULIN 3.0 1.9 - 3.7 [facility] T O EPIC CONVERSION Comment:Result Comment: UNIT S: g/dL (calc) ALBUMIN/GLOBULI N RATIO 1.3 1.0 - 2.5 (calc) [facility] TO EPIC CONVERSION BILIRUBIN TOTAL (FLUID) 0.3 0.2 - 1.2 mg/dL [facility] TO EPIC CONVERSION ALK PHOS 66 33 - 115 U/L [facility] TO [facility]IC CONVERSION AST 17 10 - 35 U/L [facility] TO EPIC CONVERSION ALT 15 6 - 29 U/L [facility] TO EPIC CONVERSION Comment: Result Comment: Test Performed at: [facility] [address] [place] ??[phone] ? GENE VILLAR DO,MPH 10/17/2017 11:1 8 AM CDT 10/17/2017 11:18 AM CDT Narrative [facility] TO EP[facility] CONVERSION - 10/21/2017 11:00 PM CDT Result Communication: Call patient with results Keyonna Armstrong [facility] Final Resul t [facility] TO EPIC CONVERSION * (ABNORMAL) METANEPHRINES FRACTIONATED PLASMA (10/17/2017 11:18 AM CDT) METANEPHRINE FREE S/P/B 31 <=57 pg/mL [facility] TO EPIC CONVERSION Comment: Result Comment: ?? This test was developed and its analytical performance characteristics have been determined by [facility] [place], [place]. It has not been cleared or approved by the U.S. Food and Drug Administration. This assay has been validated pursuant to the CLIA regulations and is used for clinical purposes. NORMETANEPHRINE FREE S/P/B 181(H) <=148 pg/mL [facility] TO EPIC CONVERSION Comment: Result Comment: ?? This test was developed and its analytical performance characteristics have been determined by [facility] [place], [place]. It has not been cleared or approved by the U.S. Food and Drug Administration. This assay has been validated pursuant to the CLIA regulations and is used for clinical purposes. METANEPHRINES (U) 212(H) <=205 pg/mL [facility] TO EPIC CONVERSION Comment: Result Comment: ?? For additional information, please refer to http://education.[employer]/faq/[employer]Fract[employer] (This link is being provided for informational/educatio [...] The Journal of Clinical Endocrinology # Metabolism 93(1, 91-95, 2007. This test was developed and its analytical performance characteristics have been determined by [facility] [place], [place]. It has not been cleared or approved by the U.S. Food and Drug Administration. This assay has been validated pursuant to the CLIA regulations and is used for clinical purposes. Test Performed at: [facility] [address] ? LYDIA ALDANA MD,PHD 10/17/2017 11:1 8 AM CDT 10/17/2017 11:18 AM CDT Narrative [facility] TO EPIC CONVERSION - 10/21/2017 11:00 PM CDT Result Communication: Call patient with results Keyonna [facility] Final Resul t [facility] TO EPIC CONVERSION * TSH W/REFLEX (SNS) (10/17/2017 11:18 AM CDT) TSH 1.15 mIU/L [facility] T O EPIC CONVERSION Comment: Result Comment: ? Reference Range ?> or = 20 Years ??0.40-4.50 ? Ranges ?First trimester ?0.26-2.66 ?Second trimester ?? 0.55-2.73 ?Third trimester ?0.43-2.91 REPORT COMMENT: COLLECTION KIT GIVEN TO PATIENT. PATIENT ADVISED TO RETURN. Test Performed at: [facility] [address] [place], [place] ??[address] ? GENE VILLAR DO,MPH 10/17/2017 11:1 8 AM CDT 10/17/2017 11:18 AM CDT Narrative [facility] TO EPIC CONVERSION - 10/21/2017 11:00 PM CDT Result Communication: Call patient with results Keyonna [facility] Final Resul t Performing Organization Address [facility] de Phone Number [facility] TO EPIC CONVERSION * ALDOSTERONE (10/17/2017 11:18 AM CDT) ALDOSTERONE S/P/B 15 ng/dL [facility] TO EPIC CONVERSION Comment: Result Comment: ? Adult Reference Ranges for Aldosterone, ?? LC/MS/MS: ?Upright 8:00-10:00 am ?< or = 28 ng/dL ?Upright 4:00-6:00 pm ? < or = 21 ng/dL ?Supine ??8:00-10:00 am ?3-16 ng/dL This test was developed and its analytical performance characteristics have been determined by [facility]. It has not been cleared or approved by FDA. This assay has been validated pursuant to the CLIA regulations and is used for clinical purposes. Test Performed at: [facility] [address] [place], [place] ??[phone] ? SONYA BLANK MD,PHD,EKATERINA 10/17/2017 11:1 8 AM CDT 10/17/2017 11:18 AM CDT Narrative [facility] TO EPIC CONVERSION - 10/21/2017 11:00 PM CDT Result Communication: Call patient with results Keyonna [facility] Final Resul t Performing Organization Address [facility] Co de Phone Number [facility] TO EPIC CONVERSION documented in this encounter Visit Diagnoses Not on filedocumented in this encounter
--- OUTSIDE RECORDS SUMMARY | 2024-07-10 23:01 | XMS_ITS | Encounter Summary ---
Author Organization [facility] Address [address] [place] [address]. [place] [id number] [place] [address] Care Team Providers Care Gear Shaper Name Role Phone Keyonna Armstrong Primary Care Provider [phone] Reason for Visit * Reason Comments Follow Up hospital (gallbladde r problems) Encounter Details Date Type Department Care Team (Late st Contact Info) Description 06/11/2018 11:20 AM MARKETING DATABASE COORDINATOR Office Visit [facility] Family & Internal Medicine [facility] [address] [place] [id number] Keyonna Armstrong APNP [facility] [place] [address] Follow Up (hospital (gallbladder problems)) Social History Tobacco Use Types Packs/Day Years [...] CDT Gender Identity Female 07/17/2022 10:27 AM MARKETING DATABASE COORDINATOR Sexual Orientation Straight 07/17/2022 10 :27 AM MARKETING DATABASE COORDINATOR documented as of this encounter Last Filed Vital Signs Vital Sign Reading Time Taken Comments Blood Pressure 135/81 06/11/2018 11:42 AM MARKETING DATABASE COORDINATOR Pulse 83 06/11/2018 11:42 AM MARKETING DATABASE COORDINATOR Temperature 36.8 ??C (98.3 ??F) 06/11/2018 1 1:42 AM MARKETING DATABASE COORDINATOR Respiratory Rate 16 06/11/2018 11:4 2 AM MARKETING DATABASE COORDINATOR Oxygen Saturation 95% 06/11/2018 11: 42 AM MARKETING DATABASE COORDINATOR Inhaled Oxygen Concentration - - Weight 134.6 kg (296 lb 11.2 oz) 2017 11:42 AM MARKETING DATABASE COORDINATOR Height 162.6 cm (5' 4) 06/11/2018 11:4 2 AM MARKETING DATABASE COORDINATOR Body Mass Index 50.93 06/11/2018 11:42 AM MARKETING DATABASE COORDINATOR documented in this encounter Patient Instructions * Patient Instructions* YOBANI Cruz - 06/11/2018 11:20 AM MARKETING DATABASE COORDINATOR Images from the original note were not included. Patient Education Patient Education Acid Reflux (Gastroesophageal Reflux Disease) [...] coffee grounds. Where can I learn more? National Digestive Diseases Information Clearinghouse http://digestive.niddk.nih.gov/ddiseases/pubs/gerd/ Last Reviewed Date 2017-03-13 Consumer Information Use and Disclaimer This information [...] is right for you. Copyright Copyright ?? 2018 [employer]. and its affiliates and/or licensors. All rights reserved. Patient Education Patient Education High Blood Pressure Discharge Instructions About this topic High blood pressure happens when your heart is working harder than normal to pump blood to the body. Most people have no known cause or reason for high blood pressure. High blood pressure cannot be cured. You must control it with drugs and lifestyle changes. If high blood pressure is not controlled, it can lead to heart attack, stroke, and kidney problems. What care is needed at home? ?? Ask your doctor what you need to do when you go home. Make sure you ask questions if you do not understand what the doctor says. This way you will know what you need to do. ?? Learn to take and write down your blood pressure at home. ?? Avoid stress. What follow-up care is needed? Your doctor may ask you to make visits to the office to check on your progress. Be sure to keep these visits. What drugs may be needed? The doctor may order drugs to help control your high blood pressure. Take your drugs as ordered. Donot take other prescription drugs or ihvv-aqt-wqlzdgd (OTC) drugs without talking to your doctor first. Will physical activity be limited? Talk to your doctor about the right amount of activity for you. Exercise may help you lose weight and lower your blood pressure. What changes to diet are needed? ?? Do not use salt on your food. Use herbs to improve the taste. ?? Do not eat more than 2.4 grams of sodium a day. Read food labels to see how much sodium is in a food. ?? Limit coffee, tea, and soda to 2 cups (480 mL) a day. ?? Limit beer, wine, and mixed drinks (alcohol) to 1 drink a day for women and 2 drinks a day for men. ?? Eat lots of fruits, vegetables, and low-fat dairy products. ?? Avoid fatty foods like fried foods or chips. ?? Talk with your dietitian about the diet changes you need and the number of calories you should eat each day. What problems could happen? ?? Heart attack, heart failure, or other heart problems ?? Stroke ?? Swelling of blood vessels ?? Kidney failure ?? Loss of eyesight ?? Memory problems ?? Fluid in the lungs What can be done to prevent this health problem? ?? Exercise regularly. ?? Avoid weight gain. ?? Stop smoking. Your doctor can tell you about stop smoking programs. ?? Learn to lower stress. When do I need to call the doctor? Activate the emergency medical system right away if you have signs of a heart attack or stroke. Call 911 in the [place] or [place]. The sooner treatment begins, the better your chances for recovery. Call for emergency help right away if you have: ?? Signs of heart attack: ?? Chest pain ?? Trouble breathing ?? Fast heartbeat ?? Feeling dizzy ?? Signs of stroke: ?? Sudden numbness or weakness of the face, arm, or leg, especially on one side of the body ?? Sudden confusion, trouble speaking or understanding ?? Sudden trouble seeing in one or both eyes ?? Sudden trouble walking, dizziness, loss of balance or coordination ?? Sudden severe headache with no known cause ?? Face droops on one side Call your doctor if you have: ?? Blood pressure that is 20 points higher than your normal top or bottom number ?? Blood pressure that is higher than 220/120 ?? Very bad headache ?? Confusion ?? Sudden change in hearing or eyesight ?? Nosebleed ?? You are not feeling better in [...] condition. ?? I can tell you what numbers are too high for my blood pressure. ?? I can tell you what I will do if I have signs of a heart attack or stroke. Where can I learn more? [place] Heart Association http://www.heart.org/HEARTORG/Conditions/HighBloodPressure/AboutHighBloodPressur e/Otkyz-Alwo-Hhqib-Pressure_UC_002050_Article.jsp#.I1tB1PowI2q [place] Stroke Association http://www.strokeassociation.org/STROKEORG/WarningSigns/Zaokcl-Zvqgkex-Pyfdt-and -Symptoms_UC_308528_SubHomePage.jsp Better Health Channel http://www.betterhealth.esequiel.gov.au/bhcv2/bhcarticles.nsf/pages/Hypertension_mean s_high_blood_pressure National Heart Lung and Blood [place] http://www.nhlbi.nih.gov/health/health-topics/topics/hbp/ National [place] of Health ? Senior Health http://nihseniorhealth.gov/highbloodpressure/whatishighbp/01.html NHS Choices http://www.nhs.uk/conditions/blood-pressure-(high)/pages/introduction.aspx Last Reviewed Date 2016-03-31 Consumer Information Use and Disclaimer This information [...] is right for you. Copyright Copyright ?? 2018 [employer]. and its affiliates and/or licensors. All rights reserved. ETING DATABASE COORDINATOR ETING DATABASE COORDINATOR documented in this encounter Progress Notes * YOBANI Cruz - 06/11/2018 11:20 AM CST ETING DATABASE COORDINATOR * YOBANI Cruz - 06/11/2018 11:20 AM CST Images from the original note were not included. [facility] OFFICE VISIT Reason for Visit: Follow Up (hospital (gallbladder problems)) History of Present Illness: Pt here today for follow up TCM after being hospitalized on 05/27/2018 and being diagnosed with cholecystitis and sepsis. According to hospitalist note, they recommended she follow up at a tertiary care center for surgical consideration and pt has appt at [facility] on 06/20/2018. As of today, she states symptoms have resolved. When pain had initially started she described as sharp, stabbing and located in her right upper quadrant. Pain was accompanied by nausea and vomiting as well as diarrhea. She went to the ER where a CT of her abdomen was done which showed gallbladder distention without gallstones or gallbladder wallthickening and hepatic stenosis. However her right upper quadrant ultrasound did show gallstones with gallbladder wall thickening and a common bile duct measuring 5 Initially her labs showed a lipaseof 1217, elevated liver enzymes, and elevated white blood cell count and elevated lactic acid. She was treated with several rounds of IV antibiotics and at discharge her lipase had returned to normaland her liver enzymes were trending back down. White blood cell count had returned to normal. History and physical, discharge summary, gastroenterology consult notes, imaging and labs were reviewed today at patient's visit. Patient had an echocardiogram due to tachycardia while hospitalized which returned to normal. She was placed on metoprolol 50 mg initially which was increased to 100 mg once daily. Blood pressure andheart rate are both within normal limits at today's visit. No medication changes were made at hospital discharge other than addition of the metoprolol 100 mg once daily. No new complaints or concerns. ROS: Review of Systems Constitutional: Negative for chills, fever and malaise/fatigue. Respiratory: Negative for cough and shortness of breath. Cardiovascular: Negative for chest pain and claudication. Gastrointestinal: Positive for nausea. Negative for abdominal pain, blood in stool, constipation, diarrhea, heartburn, melena and vomiting. Genitourinary: Negative for dysuria and frequency. Neurological: Negative for dizziness and headaches. Psychiatric/Behavioral: Negative for depression and suicidal ideas. The patient is nervous/anxious. Medications: Current Outpatient Medications: ??? albuterol sulfate HFA (VENTOLIN HFA) 108 (90 Base) MCG/ACT inhaler, Inhale 2 puffs into the lungs every 4 (four) hours as needed for Wheezing., Disp: 18 g, Rfl: 1 ??? hydrochlorothiazide 25 MG tablet, Take 1 tablet by mouth daily., Disp: , Rfl: ??? levonorgestrel-ethinyl estradiol (ENPRESSE-28) tablet, Take 1 tablet by mouth daily., Disp: , Rfl: ??? lisinopril 40 MG tablet, Take 1 tablet by mouth daily., Disp: , Rfl: ??? lorazepam 0.5 MG tablet, Take 1 tablet by mouth 3 (three) times daily as needed., Disp: , Rfl: ??? metFORMIN 500 MG tablet, , Disp: , Rfl: ??? methocarbamol 750 MG Tab, Take 1-2 [...] zolpidem 10 MG tablet, Take 1 tablet by mouth., Disp: , Rfl: Allergies: No Known Allergies Medical History: Past Medical History: Diagnosis Date ??? Anxiety 09/20/2017 ??? Cholecystitis 06/11/2018 ??? Esophageal reflux 04/22/2013 ??? Hypertension 06/19/2012 ??? Insomnia 04/02/2018 ??? Menorrhagia 04/02/2018 ??? Morbid obesity (HCC) 09/23/2013 ??? Obstructive sleep apnea 08/02/2012 ??? [...] file Family History: Family History Problem Relation Age of Onset ??? Liver Disease Mother ??? Hypertension Mother ??? Diabetes Father ??? Thyroid Sister ??? Liver Disease Brother ??? Stroke Maternal Grandmother PE: Physical Exam Constitutional: She is oriented to person, place, and time and well-developed, well-nourished, and in no distress. No distress. HENT: Head: Atraumatic. Mouth/Throat: Oropharynx is clear and moist. Eyes: Conjunctivae and EOM are normal. No scleral icterus. Neck: Normal range of motion. Neck supple. No thyromegaly present. Cardiovascular: Normal rate, regular rhythm and intact distal pulses. Exam reveals no gallop and nofriction rub. No murmur heard. Pulmonary/Chest: Effort normal and breath sounds normal. No respiratory distress. She has no wheezes. She has no rales. She exhibits no tenderness. Abdominal: Soft. Bowel sounds are normal. She exhibits no distension and no mass. There is no tenderness. There is no rebound and no guarding. Musculoskeletal: Normal range of motion. She exhibits no edema or tenderness. Lymphadenopathy: She has no cervical adenopathy. Neurological: She is alert and oriented to person, place, and time. She has normal reflexes. Gait normal. Skin: Skin is warm and dry. No rash noted. She is not diaphoretic. No erythema. No pallor. Psychiatric: Mood and affect normal. Nursing note and vitals reviewed. Filed Vitals: 06/11/18 1142 BP: 135/81 Pulse: 83 Resp: 16 Temp: 98.3 ??F (36.8 ??C) TempSrc: Oral SpO2: 95% Weight: 134.6 kg (296 lb 11.2 oz) Height: 5' 4 (1.626 m) Labs: Labs Reviewed Diagnoses/Impression: 1. Calculus of gallbladder without cholecystitis without obstruction 2. Gastroesophageal reflux disease without esophagitis pantoprazole 40 MG tablet COMPREHENSIVE METABOLIC PANEL 3. Cholecystitis COMPREHENSIVE METABOLIC PANEL 4. Essential hypertension metoprolol succinate 100 MG 24 hr tablet COMPREHENSIVE METABOLIC PANEL Chronic 5. BMI 50.0-59.9, adult (HCC) 6. Elevated liver enzymes Recommendations and Plan: 1. Gastroesophageal reflux disease without esophagitis - pantoprazole 40 MG tablet; Take 1 tablet (40 mg total) by mouth daily. Dispense: 90 tablet; Refill: 3 - COMPREHENSIVE METABOLIC PANEL; Future Meds refilled. GERD instructions discussed. Home diet discussed. We will continue to monitor. 2. Cholecystitis - COMPREHENSIVE METABOLIC PANEL; Future Liver enzymes elevated. Suspect this was due to cholelithiasis/cholecystitis. Would like to recheckCMP today to make sure liver enzymes return to normal. 3. Essential hypertension - metoprolol succinate 100 MG 24 hr tablet; Take 1 tablet (100 mg total) by mouth daily. Dispense: 90 tablet; Refill: 1 - COMPREHENSIVE METABOLIC PANEL; Future Blood pressure stable at today's visit. She is to continue medications at current doses. 4. BMI 50.0-59.9, adult (HCC) Diet and exercise discussed and encouraged today. We will continue to monitor with upcoming visits. 5. Calculus of gallbladder without cholecystitis without obstruction Liver enzymes elevated. Suspect this was due to cholelithiasis/cholecystitis. Would like to recheckCMP today to make sure liver enzymes return to normal. She is to continue follow-up at [facility] with general surgery as already scheduled. 6. Elevated liver enzymes Plan to recheck. We will plan after results. Orders Placed This Encounter ??? COMPREHENSIVE METABOLIC PANEL ??? pantoprazole 40 MG tablet ??? metoprolol succinate 100 MG 24 hr tablet Cannot display discharge medications since this is not an admission. PCP: YOBANI Cruz 06/11/2018 ETING DATABASE COORDINATOR documented in this encounter Plan of Treatment Upcoming Encounters Date Type Department Care Team (Late st Contact Info) Description 07/25/2024 10:00 AM MARKETING DATABASE COORDINATOR Office Visit [facility] Family & Internal Medicine - [place] [address] [place] [address] Keyonna Armstrong APNP [address] [place] [address] 07/31/2024 10:15 AM MARKETING DATABASE COORDINATOR Office Visit [facility], [facility] [address] [place], [place] [address] Pepe Mitchell MD [facility]. [facility] [address] [place], [place] [address] documented as of this encounter Visit Diagnoses Diagnosis Calculus of gallbladder without cholecystitis without obstruction- Primary Calculus of gallbladder without mention of cholecystitis or obstruction Gastroesophageal reflux disease without esophagitis Esophageal reflux Cholecystitis Cholecystitis, unspecified Essential hypertension Unspecified essential hypertension BMI 50.0-59.9, adult ([facility]) Body Mass Index 50.0-59.9, adult Elevated liver enzymes Nonspecific elevation of levels of transaminase or lactic acid dehydrogenase (LDH) documented in this encounter Care Teams Gear Shaper Relationship Specialty Start Date End Date Keyonna Armstrong APNP [address] [place] [address] PCP - General NURSE PRACTITIONER 05/06/18 documented as of this encounter
--- OUTSIDE RECORDS SUMMARY | 2024-07-10 23:01 | XMS_ITS | Encounter Summary ---
Author Organization [facility] Address [address] [place] [address] [place] [address] [place] [address] Care Team Providers Care Business Analytics Intern Name Role Phone Royer Hidalgo MD Primary Care Provider [phone] Royer Hidalgo MD Primary Care Provider [phone] Encounter Details Date Type Department Care Team (Latest Contact Info) Description 09/15/2015 Abstract [facility] Social History Tobacco Use Types Packs/Day Years Used Date Smoking Tobacco: Never Assessed Comments Unknown Sex and Gender Information Value Date Recorded Sex Assigned at Not on file Legal Sex Female 5:47 PM CDT Gender Identity Female 07/17/2022 10:27 AM HOOK PULLER Sexual Orientation Straight 07/17/2022 10 :27 AM HOOK PULLER documented as of this encounter Plan of Treatment Upcoming Encounters Date Type Department Care Team (Late st Contact Info) Description 07/25/2024 10:00 AM HOOK PULLER Office Visit [facility] Family & Internal Medicine - [place] [address] [place] [address] Keyonna Armstrong APNP [address] [place] [address] 07/31/2024 10:15 AM HOOK PULLER Office Visit [facility] [address] [place] [address] Pepe Mitchell MD [facility]. [facility] [address] [place], [place] [address] documented as of this encounter Visit Diagnoses Not on filedocumented in this encounter Care Teams Business Analytics Intern Relationship Specialty Start Date End Date Royer Hidalgo MD PCP - General 04/25/16 09/14/16 Royer Hidalgo MD PCP - General 05/14/15 04/24/16 documented as of this encounter
--- OUTSIDE RECORDS SUMMARY | 2024-07-10 23:01 | XMS_ITS | Encounter Summary ---
Author Organization [facility] Address [address] [place] [address]. [place], [place] [phone] [place] [address] Care Team Providers Care Market Basket Maker Name Role Phone Keyonna Armstrong Primary Care Provider [phone] Encounter Details Date Type Department Care Team (Latest Contact Info) Description 05/07/2018 Abstract [facility] Charline Thurman FNP [address] [place] [address] Social History Tobacco Use Types Packs/Day Years Used Date Smoking Tobacco: Never Assessed Comments Unknown Sex and Gender Information Value Date Recorded Sex Assigned at Not on file Legal Sex Female 5:47 PM CDT Gender Identity Female 07/17/2022 10:27 AM CUSTODIAN SUPERVISOR Sexual Orientation Straight 07/17/2022 10 :27 AM CUSTODIAN SUPERVISOR documented as of this encounter Plan of Treatment Upcoming Encounters Date Type Department Care Team (Late st Contact Info) Description 07/25/2024 10:00 AM CUSTODIAN SUPERVISOR Office Visit [facility] Medical [facility] Family & Internal Medicine - [place] [address] [place] [address] Keyonna Armstrong APNP [address] [place] [address] 07/31/2024 10:15 AM CUSTODIAN SUPERVISOR Office Visit [facility] [address] [place] [address] Pepe Mitchell MD [facility]. [place] [address] [place] [address] documented as of this encounter Visit Diagnoses Not on filedocumented in this encounter Care Teams Market Basket Maker Relationship Specialty Start Date End Date Keyonna Armstrong APNP [address] [place] [address] PCP - General NURSE PRACTITIONER 05/06/18 documented as of this encounter
--- OUTSIDE RECORDS SUMMARY | 2024-07-10 23:01 | XMS_ITS | Encounter Summary ---
Author Organization [facility] Address [address] [place] [address]. [place], [place] [id number] [place] [address] Care Team Providers Care Cardiograph Operator Name Role Phone Keyonna Armstrong Primary Care Provider [phone] Reason for Visit * Reason Onset Date Comments Lab Results 07/18/2018 Encounter Details Date Type Department Care Team (Late st Contact Info) Description 07/18/2018 Telephone [facility] Family & Internal Medicine [facility] [address] [place] [address] Keyonna Armstrong APNP [address] [place] [address] Lab Results Social History Tobacco [...] CDT Gender Identity Female 07/17/2022 10:27 AM AUTO RADIO MECHANIC Sexual Orientation Straight 07/17/2022 10 :27 AM AUTO RADIO MECHANIC documented as of this encounter Progress Notes * Nenita Young MA - 07/26/2018 8:18 AM CST Patient notified -sjs RADIO MECHANIC * Nenita Young MA - 07/25/2018 11:09 AM CST [id number] RADIO MECHANIC * YOBANI Cruz - 07/25/2018 9:10 AM CST It looks like according to my last note I had ordered a CMP to recheck her liver enzymes. You can let her know these had returned to normal. RADIO MECHANIC * Criss Potter RN - 07/25/2018 8:36 AM CST Spoke with patient who states that she is following up with [facility] regarding the labs that they had ordered. Patient is wondering if you reviewed the labs that you had ordered. She states that she has surgery on 08/07/17 and was waiting to get the ok for her lab work. RADIO MECHANIC * Criss Potter RN - 07/24/2018 12:41 PM CST lmtc RADIO MECHANIC * Flora Blackwell MA - 07/19/2018 12:59 PM CST Lm 07/19/18 tn RADIO MECHANIC * Flora Blackwell MA - 07/19/2018 12:59 PM CST ----- Message from YOBANI Cruz sent at 07/19/2018 11:32 AM AUTO RADIO MECHANIC ----- With further investigation, it looks like these labs were ordered from a provider from [facility] and justCC'd to me. Make sure pt has follow up with [facility] provider to discuss these labs. RADIO MECHANIC * Flora Blackwell MA - 07/19/2018 10:53 AM CST I spoke with [facility] and these results were only CC to us. Ordering provider was Dr. Elli Hernandez out of [facility]. RADIO MECHANIC * YOBANI Cruz - 07/18/2018 8:21 PM CST That's what I saw the other day, too. Most of the labs are ones that I would order, however, the copper and Vit B1 are labs that I would never order. So not sure how they got ordered under my name. Can we call pt and see if she had labs ordered from another provider. She sees Dr. Andrzej Barrios as well. Possibly her? RADIO MECHANIC * Criss Potter RN - 07/18/2018 5:37 PM CST Under additional details on the final result it looks like you were the ordering provider for theselabs RADIO MECHANIC * YOBANI Cruz - 07/18/2018 5:01 PM CST Can we find out who ordered these labs? I may be responsible for most of the labs, but the copper, Vit B1 and lipase I'm not sure of. Is there anyway we could find out who ordered these as they need to be forwarded to the correct provider. RADIO MECHANIC documented in this encounter Plan of Treatment Upcoming Encounters Date Type Department Care Team (Late st Contact Info) Description 07/25/2024 10:00 AM AUTO RADIO MECHANIC Office Visit [facility] Family & Internal Medicine - [address] [address] Keyonna Armstrong APNP [facility] [place] [address] 07/31/2024 10:15 AM AUTO RADIO MECHANIC Office Visit [facility] [address] [place] [address] Pepe Mitchell MD [facility]. [facility] [address] [place], [place] [id number] documented as of this encounter Visit Diagnoses Not on filedocumented in this encounter Care Teams Cardiograph Operator Relationship Specialty Start Date End Date Keyonna Armstrong APNP [address] [place] [address] PCP - General NURSE PRACTITIONER 05/06/18 documented as of this encounter
--- OUTSIDE RECORDS SUMMARY | 2024-07-10 23:01 | XMS_ITS | Encounter Summary ---
Author Organization [facility] Address [facility]. [place], [place] [id number] [place] [address] Care Team Providers Care Tax Associate Name Role Phone Unavailable Primary Care Provider Unavailabl e Encounter Details Date Type Department Care Team (Latest Contact Info) Description 10/08/2017 Abstract [facility] Social History Tobacco Use Types Packs/Day Years Used Date Smoking Tobacco: Never Assessed Comments Unknown Sex and Gender Information Value Date Recorded Sex Assigned at Not on file Legal Sex Female 5:47 PM CDT Gender Identity Female 07/17/2022 10:27 AM CARE TEAM ASSISTANT Sexual Orientation Straight 07/17/2022 10 :27 AM CARE TEAM ASSISTANT documented as of this encounter Progress Notes * CECI Wright - 10/08/2017 3:50 PM CDT Signatures Electronically signed by : Flora Blackwell, ; Oct 08 2017 3:50PM CARE TEAM ASSISTANT (Author) documented in this encounter Plan of Treatment Upcoming Encounters Date Type Department Care Team (Late st Contact Info) Description 07/25/2024 10:00 AM CARE TEAM ASSISTANT Office Visit [facility] Group Family & Internal Medicine - [place] [address] [place] [address] Keyonna Armstrong APNP [address] [place] [address] 07/31/2024 10:15 AM CARE TEAM ASSISTANT Office Visit [facility], [place] [address] [place] [address] Pepe Mitchell MD [facility]. [facility] [address] [place] [address] documented as of this encounter Visit Diagnoses Not on filedocumented in this encounter
--- OUTSIDE RECORDS SUMMARY | 2024-07-10 23:01 | XMS_ITS | Encounter Summary ---
Author Organization [facility] Address [address] [place] [address]. [place], [place] [address] [place] [address] Care Team Providers Care Science And Operations Officer Name Role Phone Keyonna Armstrong Primary Care Provider [phone] Reason for Visit * Reason Comments Blood Pressure Check Encounter Details Date Type Department Care Team (Latest Contact Info) Description 09/24/2018 1:40 PM BRUISE TRIMMER Allied Health/Nurse Visit [facility] Family & Internal [address] [address] Blood Pressure Check Social History Tobacco Use Types Packs/Day [...] CDT Gender Identity Female 07/17/2022 10:27 AM BRUISE TRIMMER Sexual Orientation Straight 07/17/2022 10 :27 AM BRUISE TRIMMER documented as of this encounter Last Filed Vital Signs Vital Sign Reading Time Taken Comments Blood Pressure 122/68 09/24/2018 2:34 PM BRUISE TRIMMER Pulse - - Temperature - - Respiratory Rate - - Oxygen Saturation - - Inhaled Oxygen Concentration - - Weight - - Height - - Body Mass Index - - documented in this encounter Plan of Treatment Upcoming Encounters Date Type Department Care Team (Late st Contact Info) Description 07/25/2024 10:00 AM BRUISE TRIMMER Office Visit [facility] Family & Internal Medicine - [place] [address] [place] [address] Keyonna Armstrong APNP [address] [place] [address] 07/31/2024 10:15 AM BRUISE TRIMMER Office Visit [facility], [facility] [address] [place] [address] Pepe Mitchell MD [facility]. [facility] [address] [place] [address] documented as of this encounter Visit Diagnoses Diagnosis Essential hypertension- Primary Unspecified essential hypertension documented in this encounter Care Teams Science And Operations Officer Relationship Specialty Start Date End Date Keyonna Armstrong APNP [address] [place] [address] PCP - General NURSE PRACTITIONER 05/06/18 documented as of this encounter
--- OUTSIDE RECORDS SUMMARY | 2024-07-10 23:01 | XMS_ITS | Encounter Summary ---
Author Organization [facility] Address [address] [place] [address]. [place], [place] [id number] [place] [address] Care Team Providers Care Hand Touch Up Painter Name Role Phone Royer Hidalgo MD Primary Care Provider [phone] Royer Hidalgo MD Primary Care Provider [phone] Encounter Details Date Type Department Care Team (Late st Contact Info) Description 05/17/2015 [place] [address] Ryoer Hidalgo MD [address] [facility] [place] [address] Social History Tobacco Use Types Packs/Day Years Used Date Smoking Tobacco: Never Assessed Comments Unknown Sex and Gender Information Value Date Recorded Sex Assigned at Not on file Legal Sex Female 5:47 PM CDT Gender Identity Female 07/17/2022 10:27 AM PROFESSOR OF ENVIRONMENTAL ENGINEERING Sexual Orientation Straight 07/17/2022 10 :27 AM PROFESSOR OF ENVIRONMENTAL ENGINEERING documented as of this encounter Plan of Treatment Upcoming Encounters Date Type Department Care Team (Late st Contact Info) Description 07/25/2024 10:00 AM PROFESSOR OF ENVIRONMENTAL ENGINEERING Office Visit [facility] Medical [facility] Family & Internal Medicine - [place] [address] [place] [phone] Keyonna Armstrong APNP [address] [place] [address] 07/31/2024 10:15 AM PROFESSOR OF ENVIRONMENTAL ENGINEERING Office Visit [place], [place] [address] [place] [address] Pepe Mitchell MD Three [facility]. [place] [address] [place] [address] documented as of this encounter Visit Diagnoses Not on filedocumented in this encounter Care Teams Hand Touch Up Painter Relationship Specialty Start Date End Date Royer Hidalgo MD PCP - General 04/25/16 09/14/16 Royer Hidalgo MD PCP - General 05/14/15 04/24/16 documented as of this encounter
--- OUTSIDE RECORDS SUMMARY | 2024-07-10 23:01 | XMS_ITS | Encounter Summary ---
Author Organization [facility] Address [address] [place] [address]. [place], [place] [phone] [place] [address] Care Team Providers Care Welt Trimming Machine Operator Name Role Phone Keyonna Armstrong Primary Care Provider [phone] Encounter Details Date Type Department Care Team (Latest Contact Info) Description 04/06/2018 Abstract [facility] Claudia Kidd MD Social History Tobacco Use Types Packs/Day Years Used Date Smoking Tobacco: Never Assessed Comments Unknown Sex and Gender Information Value Date Recorded Sex Assigned at Not on file Legal Sex Female 5:47 PM CDT Gender Identity Female 07/17/2022 10:27 AM CAMPGROUND MANAGER Sexual Orientation Straight 07/17/2022 10 :27 AM CAMPGROUND MANAGER documented as of this encounter Plan of Treatment Upcoming Encounters Date Type Department Care Team (Late st Contact Info) Description 07/25/2024 10:00 AM CAMPGROUND MANAGER Office Visit [facility] Medical [facility] Family & Internal Medicine [facility] [address] [place] [address] Keyonna Armstrong APNP [facility]note 2[facility] [place] [address] 07/31/2024 10:15 AM CAMPGROUND MANAGER Office Visit [place] [facility], [facility] [address] [place] [address] Pepe Mitchell MD Three [facility]. [facility] [address] [place], [place] [address] documented as of this encounter Visit Diagnoses Not on filedocumented in this encounter Care Teams Welt Trimming Machine Operator Relationship Specialty Start Date End Date Keyonna Armstrong APNP [address] [place] [address] PCP - General NURSE PRACTITIONER 05/06/18 documented as of this encounter
--- OUTSIDE RECORDS SUMMARY | 2024-07-10 23:01 | XMS_ITS | Encounter Summary ---
Author Organization [facility] Address [address] [place] [address]. [place], [place] [address] [place] [address] Care Team Providers Care Design Drafter Chief Name Role Phone Keyonna Armstrong Primary Care Provider [phone] Encounter Details Date Type Department Care Team (Latest Contact Info) Description 05/28/2018 Scan [facility] Medical Group Claudia Kidd MD Social History Tobacco Use Types Packs/Day Years Used Date Smoking Tobacco: Never Assessed Comments Unknown Sex and Gender Information Value Date Recorded Sex Assigned at Not on file Legal Sex Female 5:47 PM CDT Gender Identity Female 07/17/2022 10:27 AM COOK DINNER Sexual Orientation Straight 07/17/2022 10 :27 AM COOK DINNER documented as of this encounter Plan of Treatment Upcoming Encounters Date Type Department Care Team (Late st Contact Info) Description 07/25/2024 10:00 AM COOK DINNER Office Visit [facility] Medical Group Family & Internal Medicine [facility] [address] [place] [address] Keyonna Armstrong APNP [facility] [place] [address] 07/31/2024 10:15 AM COOK DINNER Office Visit [facility], [facility] [address] [place] [address] Pepe Mitchell MD [facility]. [facility] [address] [place], [place] [address] documented as of this encounter Visit Diagnoses Not on filedocumented in this encounter Care Teams Design Drafter Chief Relationship Specialty Start Date End Date Keyonna Armstrong APNP [address] [place] [address] PCP - General NURSE PRACTITIONER 05/06/18 documented as of this encounter
--- OUTSIDE RECORDS SUMMARY | 2024-07-10 23:01 | XMS_ITS | Encounter Summary ---
Author Organization [facility] Address [address] [place] [address]. [place], [place] [address] [place] [address] Care Team Providers Care Lead Machinist Name Role Phone Unavailable Primary Care Provider Unavailabl e Encounter Details Date Type Department Care Team (Late st Contact Info) Description 09/27/2017 Abstract [facility] Family & Internal Medicine [address] [place] [address] Keyonna Armstrong APNP [address] [place] [address] Social History Tobacco Use Types Packs/Day Years Used Date Smoking Tobacco: Never Assessed Comments Unknown Sex and Gender Information Value Date Recorded Sex Assigned at Not on file Legal Sex Female 5:47 PM CDT Gender Identity Female 07/17/2022 10:27 AM MANAGER OF PMO Sexual Orientation Straight 07/17/2022 10 :27 AM MANAGER OF PMO documented as of this encounter Last Filed Vital Signs Vital Sign Reading Time Taken Comments Blood Pressure 191/115 09/27/2017 12:05 PM MANAGER OF PMO Pulse 126 09/27/2017 12:05 PM MANAGER OF PMO Temperature - - Respiratory Rate - - Oxygen Saturation - - Inhaled Oxygen Concentration - - Weight 136.1 kg (300 lb) 09/27/2017 12:05 PM MANAGER OF PMO Height 163.8 cm (5' 4.5) 09/27/2017 12:05 PM CS T Body Mass Index 50.7 09/27/2017 12:05 PM MANAGER OF PMO documented in this encounter Progress Notes * YOBANI Cruz - 09/27/2017 12:00 PM CST Reason For Visit Acute Follow-Up Visit Chief Complaint Patient c/o still being sob , cough and chest congestion. History of Present Illness HPI Free Text: Pt here for follow up. She was diagnosed with flu A last week and placed on Tamiflu and Ceftin. Today, she states overall her symptoms are better. Her headache and sinus pain and pressure have resolved. She still has shortness of breath, non-productive cough, chest congestion and fatigue. She denies any chest pain or chest pain with coughing. EKG was done at last visit and other than sinus tachycardia was normal. Review of Systems Constitutional, Eyes, ENT, Cardiovascular, Gastrointestinal, Genitourinary, Musculoskeletal, Integumentary, Neurological, Psychiatric, Endocrine and Hematologic review of systems normal except as noted. Respiratory: shortness of breath, cough, wheezing and shortness of breath during exertion. Active Problems 1. Anxiety (300.00) (F41.9) 2. Chronic insomnia (780.52) (F51.04) 3. Depression (311) (F32.9) 4. Dyslipidemia (272.4) (E78.5) 5. Esophageal reflux (530.81) (K21.9) 6. History of motion sickness (V13.89) (Z87.898) 7. Hypertension (401.9) (I10) 8. Impaired fasting glucose (790.21) (R73.01) 9. Morbid obesity (278.01) (E66.01) 10. Obstructive sleep apnea (327.23) (G47.33) 11. Right ovarian cyst (620.2) (N83.201) 12. Sinus tachycardia (427.89) (R00.0) 13. Urinary retention (788.20) (R33.9) Surgical History 1. History of Gastric Surgery For Morbid Obesity Family History 1. Family history of Hypertension (V17.49) 2. Family history of Diabetes Mellitus (V18.0) 3. Family history of Stroke Syndrome (V17.1) Social History ?? Never a smoker Current Meds 1. Benzonatate 100 MG Oral Capsule; TAKE 1 CAPSULE EVERY 6 HOURS NEEDED; Therapy: 20Sep2017 to (Evaluate:28Sep2017) Requested for: 20Sep2017; Last Rx:20Sep2017 Ordered 2. Enpresse-28 Oral Tablet; TAKE 1 TABLET BY MOUTH EVERY DAY; Therapy: 30May2012 to (Evaluate:59Fse0313) Requested for: 27Xju8552; Last Rx:[id number] Ordered 3. HydroCHLOROthiazide 25 MG Oral Tablet; TAKE ONE TABLET BY MOUTH EVERY DAY; Therapy: 20May2012 to (Evaluate:90Pph1531) Requested for: 97Qni3949; Last Rx:[id number] Ordered 4. Ibuprofen 800 MG Oral Tablet; TAKE 1 TABLET 3 TIMES DAILY WITH FOOD NEEDED for pain; Therapy: 11Aug2014 to (Evaluate:12May2016) Requested for: 16Lxb7410; Last Rx:[id number] Ordered 5. LORazepam 0.5 MG Oral Tablet; TAKE 1 TABLET BY MOUTH 3 TIMES A DAY NEEDED; Therapy: 46Efm1897 to (Evaluate:20Oct2017) Requested for: 20Sep2017; Last Rx:20Sep2017; Status: ACTIVE - Renewal Denied Ordered 6. MetFORMIN HCl - 500 MG Oral Tablet; TAKE 1 TABLET BY MOUTH EVERY MORNING AND THEN TAKE 2 TABLETS AT BEDTIME; Therapy: 24Dec2011 to (Evaluate:19Oct2017) Requested for: 59Ioh3760; Last Rx:[id number] Ordered 7. Methocarbamol 750 MG Oral Tablet; TAKE 1 TO 2 TABLETS 3 TIMES DAILY NEEDED FOR MUSCLE SPASM; Therapy: 11Aug2014 to (Evaluate:03Lzc7496) Requested for: 07Uno4818; Last Rx:30Mhg1371 Ordered 8. Metoprolol Succinate ER 100 MG Oral Tablet Extended Release 24 Hour; TAKE 1 TABLET DAILY; Therapy: 08May2017 to (Evaluate:94Ruw3045) Requested for: 08May2017; Last Rx:[id number] Ordered 9. Ondansetron 4 MG Oral Tablet Disintegrating; DISSOLVE 1-2 TABLETS ON TONGUE EVERY 8 HOURS NEEDED FOR NAUSEA ..PATIENT NEEDS APPOINTMENT; Therapy: 02Mar2015 to (Evaluate:25Nov2016) Requested for: 20Nov2016; Last Rx:20Nov2016 Ordered 10. Pantoprazole Sodium 40 MG Oral Tablet Delayed Release; TAKE 1 TABLET EVERY DAY; Therapy: 08Jun2012 to (Evaluate:21Dec2017) Requested for: 19Bzd0323; Last Rx:[id number] Ordered 11. Polyethylene Glycol 3350 Oral Powder; MIX 1 CAPFUL (17GM) IN 8 OUNCES OF WATER, JUICE, OR TEA AND DRINK DAILY; Therapy: 71Wfe0451 to (Evaluate:24Oct2017) Requested for: 27Apr2017; Last Rx:[id number] Ordered 12. Venlafaxine HCl ER 75 MG Oral Capsule Extended Release 24 Hour; TAKE ONE CAPSULE BY MOUTH EVERY MORNING AND TAKE 2 CAPSULES BY MOUTH EVERY EVENING; Therapy: 13May2012 to (Evaluate:96Bnr0526) Requested for: 20Sep2017; Last Rx:[id number]; Status: ACTIVE - Renewal Denied Ordered 13. Zolpidem Tartrate 10 MG Oral Tablet; TAKE 1 TABLET AT BEDTIME NEEDED FOR INSOMNIA; Therapy: 15Sep2016 to (Evaluate:11Oct2017) Requested for: 65Xst2471; Last Rx:[id number] Ordered Allergies 1. No Known Drug Allergies Vitals Recorded: 27Sep2017 12:05PM Temperature 97 F Heart Rate 126 Respiration 18 Systolic 191 Diastolic 115 O2 Saturation 96 Height 5 ft 4.5 in Weight 300 lb BMI Calculated 50.7 BSA Calculated 2.34 Physical Exam Constitutional General appearance: No acute distress, well appearing and well nourished. Eyes Conjunctiva and lids: No swelling, erythema or discharge. Ears, Nose, Mouth, and Throat External inspection of ears and nose: Normal. Pulmonary Respiratory effort: No increased work of breathing or signs of respiratory distress. Auscultation of lungs: Abnormal. Pt has some wheezes and rhonchi to left mid lung. Adventitious lung sounds cleared after breathing treatment... Cardiovascular Auscultation of heart: Normal rate and rhythm, normal S1 and S2, without murmurs. tachycardic, but regular. Examination of extremities for edema and/or varicosities: Normal. Abdomen Abdomen: Non-tender, no masses. Lymphatic Palpation of lymph nodes in neck: No lymphadenopathy. Musculoskeletal Gait and station: Normal. Psychiatric Orientation to person, place, and time: Normal. Mood and affect: Normal. Results/Data EKG In Office 20Sep2017 05:27PM Keyonna Armstrong Test Name Result Flag Reference EKG/ECG Sinus tachycardia, no acute changes noted. *Influenza A + B Test In Office 20Sep2017 12:34PM Keyonna Armstrong Test Name Result Flag Reference Flu A Positive Flu B Negative Internal QC Verified Yes Counseling The patient was counseled regarding instructions for management, risk factor reductions, patient and family education, impressions, risks and benefits of treatment options and importance of compliance with treatment. total time of encounter was 20 minutes and 15 minutes was spent counseling. Assessment 1. Hypertension (401.9) (I10) 2. Sinus tachycardia (427.89) (R00.0) 3. Shortness of breath at rest (786.05) (R06.02) 4. Long-term use of high-risk medication (V58.69) (Z79.899) 5. Morbid obesity (278.01) (E66.01) 6. Bronchitis, acute (466.0) (J20.9) HTN - elevated. Lisinopril 10 mg added to pt's current meds. Will see her back in one week and makemore adjustments accordingly. SOB/sinus tachycardia - PT sent for stat CT to rule out PE. Acute bronchitis - Duo neb given in office today and pt states symptoms much improved afterwards. Will send home with albuterol inhaler. She is to let me know if there is no improvement. Tachycardia - Unsure of exact cause of pt's tachycardia. Will have pt follow up next week for BP. Will check routine fasting labs for further eval of this. [facility] called---Pt negative for PE and any other chest abnormalities. Pt aware. Ventolinand prednisone ordered. She is to let us know if symptoms do not improve. Will see next week. Plan Bronchitis, acute 1. Call if: Breathing starts to have a wheeze or whistling sound.; Status:Complete; Done: 27Sep2017 Ordered; For:Bronchitis, acute; Ordered By:Keyonna Armstrong; 2. Drink plenty of fluids.; Status:Complete; Done: 27Sep2017 Ordered; For:Bronchitis, acute; Ordered By:Keyonna Armstrong; 3. Call if: Breathing starts to have a wheeze or whistling sound.; Status:Complete; Done: 27Sep2017 Ordered; For:Bronchitis, acute; Ordered By:Keyonna Armstrong; 4. Drink plenty of fluids.; Status:Complete; Done: 27Sep2017 Ordered; For:Bronchitis, acute; Ordered By:Keyonna Armstrong; 5. Status:Complete; Done: 27Sep2017 Ordered; For:Bronchitis, acute; Ordered By:Keyonna Armstrong; 6. Call if: The fever comes back after being normal for 2 days.; Status:Complete; Done: 27Sep2017 Ordered; For:Bronchitis, acute; Ordered By:Keyonna Armstrong; 7. Call if: You are coughing up more blood.; Status:Complete; Done: 27Sep2017 Ordered; For:Bronchitis, acute; Ordered By:Keyonna Armstrong; 8. Status:Complete; Done: 27Sep2017 Ordered; For:Bronchitis, acute; Ordered By:Keyonna Armstrong; 9. Use a cool mist humidifier in the room.; Status:Complete; Done: 27Sep2017 Ordered; For:Bronchitis, acute; Ordered By:Keyonna Armstrong; 10. Call if: You are coughing up more blood.; Status:Complete; Done: 27Sep2017 Ordered; For:Bronchitis, acute; Ordered By:Keyonna Armstrong; 11. Call if: You have pain in the chest that gets worse with deep breathing or coughing.; Status:Complete; Done: 27Sep2017 Ordered; For:Bronchitis, acute; Ordered By:Keyonna Armstrong; 12. Use a cool mist humidifier in the room.; Status:Complete; Done: 27Sep2017 Ordered; For:Bronchitis, acute; Ordered By:Keyonna Armstrong; 13. Use a cough medicine to help you get adequate rest.; Status:Complete; Done: 27Sep2017 Ordered; For:Bronchitis, acute; Ordered By:Keyonna Armstrong; 14. Call if: You have pain in the chest that gets worse with deep breathing or coughing.; Status:Complete; Done: 27Sep2017 Ordered; For:Bronchitis, acute; Ordered By:Keyonna Armstrong; 15. Seek Immediate Medical Attention if: You are feeling short of breath.; Status:Complete; Done: 27Sep2017 Ordered; For:Bronchitis, acute; Ordered By:Keyonna Armstrong; 16. Use a cough medicine to help you get adequate rest.; Status:Complete; Done: 27Sep2017 Ordered; For:Bronchitis, acute; Ordered By:Keyonna Armstrong; 17. Seek Immediate Medical Attention if: You are feeling short of breath.; Status:Complete; Done: 27Sep2017 Ordered; For:Bronchitis, acute; Ordered By:Keyonna Armstrong; 18. Seek Immediate Medical Attention if: You have difficulty breathing, or you are short of breath more often.; Status:Complete; Done: 27Sep2017 Ordered; For:Bronchitis, acute; Ordered By:Keyonna Armstrong; 19. Seek Immediate Medical Attention if: You have difficulty breathing, or you are short of breath more often.; Status:Complete; Done: 27Sep2017 Ordered; For:Bronchitis, acute; Ordered By:Keyonna Armstrong; 20. Seek Immediate Medical Attention if: You have pain in your chest.; Status:Complete; Done: 27Sep2017 Ordered; For:Bronchitis, acute; Ordered By:Keyonna Armstrong; 21. Seek Immediate Medical Attention if: You have pain in your chest.; Status:Complete; Done: 27Sep2017 Ordered; For:Bronchitis, acute; Ordered By:Keyonna Armstrong; 22. Seek Immediate Medical Attention if: You notice that breathing is rapid, more than 40 times a minute.; Status:Complete; Done: 27Sep2017 Ordered; For:Bronchitis, acute; Ordered By:Keyonna Armstrong; 23. Seek Immediate Medical Attention if: You notice that breathing is rapid, more than 40 times a minute.; Status:Complete; Done: 27Sep2017 Ordered; For:Bronchitis, acute; Ordered By:Keyonna Armstrong; Hypertension 24. We encourage you to begin to make lifestyle changes to help control your blood pressure. These may include losing weight, increasing your activity level, limiting salt in your diet, decreasing alcohol intake, and eating a diet low in fat and rich in fruits and vegetables.; Status:Complete; Done: 27Sep2017 Ordered; For:Hypertension; Ordered By:Keyonna Armstrong; 25. Call if: You become dizzy or lightheaded, especially when you stand up after sitting for a while.; Status:Complete; Done: 27Sep2017 Ordered; For:Hypertension; Ordered By:Keyonna Armstrong; 26. Call if: You develop double vision (see two of everything).; Status:Complete; Done: 27Sep2017 Ordered; For:Hypertension; Ordered By:Keyonna Armstrong; 27. Call if: Your blood pressure is frequently higher than 140/90.; Status:Complete; Done: 27Sep2017 Ordered; For:Hypertension; Ordered By:Keyonna Armstrong; 28. Call 911 if: You experience a new kind of chest pain (angina) or pressure.; Status:Complete; Done: 27Sep2017 Ordered; For:Hypertension; Ordered By:Keyonna Armstrong; 29. Call 911 if: You have any symptoms of a stroke.; Status:Complete; Done: 27Sep2017 Ordered; For:Hypertension; Ordered By:Keyonna Armstrong; 30. Seek Immediate Medical Attention if: You have a severe headache that will not go away.; Status:Complete; Done: 27Sep2017 Ordered; For:Hypertension; Ordered By:Keyonna Armstrong; 31. Seek Immediate Medical Attention if: Your blood pressure is greater than 250/120 for 2 consecutive readings.; Status:Complete; Done: 27Sep2017 Ordered; For:Hypertension; Ordered By:Keyonna Armstrong; Long-term use of high-risk medication, Morbid obesity, Shortness of breath at rest, Sinus tachycardia 32. CT CHEST W; Status:Active; Requested for:27Sep2017; Perform:Other Radiology; Order Comments:call [phone] with results; Due:27Sep2017; Last UpdatedBy:Nenita Young; 09/27/2017 1:08:50 PM;Ordered; Stat; For:Long-term use of high-risk medication, Morbid obesity, Shortness of breath at rest, Sinus tachycardia; Ordered By:Keyonna Armstrong; Morbid obesity 33. Call if: You are considering suicide.; Status:Complete; Done: 27Sep2017 Ordered; For:Morbid obesity; Ordered By:Keyonna Armstrong; 34. Avoid alcoholic beverages.; Status:Complete; Done: 27Sep2017 Ordered; For:Morbid obesity; Ordered By:Keyonna Armstrong; 35. Call if: You are having difficulty sleeping (insomnia).; Status:Complete; Done: 27Sep2017 Ordered; For:Morbid obesity; Ordered By:Keyonna Armstrong; 36. Call if: You are urinating too frequently.; Status:Complete; Done: 27Sep2017 Ordered; For:Morbid obesity; Ordered By:Keyonna Armstrong; 37. Call if: You feel thirsty most of the time.; Status:Complete; Done: 27Sep2017 Ordered; For:Morbid obesity; Ordered By:Keyonna Armstrong; 38. Call if: You feel your heart is beating very fast or skipping beats.; Status:Complete; Done: 27Sep2017 Ordered; For:Morbid obesity; Ordered By:Keyonna Armstrong; 39. Call if: You have feelings of extreme sadness and feelings of hopelessness.; Status:Complete; Done: 27Sep2017 Ordered; For:Morbid obesity; Ordered By:Keyonna Armstrong; 40. Call if: You have pain in your abdomen.; Status:Complete; Done: 27Sep2017 Ordered; For:Morbid obesity; Ordered By:Keyonna Armstrong; 41. Call if: You have symptoms of sleep apnea.; Status:Complete; Done: 27Sep2017 Ordered; For:Morbid obesity; Ordered By:Keyonna Armstrong; 42. Call 911 if: You have sudden or severe chest pain with shortness of breath, rapid breathing, or cough.; Status:Complete; Done: 27Sep2017 Ordered; For:Morbid obesity; Ordered By:Keyonna Armstrong; 43. Seek Immediate Medical Attention if: You experience a new kind of chest pain (angina) or pressure.; Status:Complete; Done: 27Sep2017 Ordered; For:Morbid obesity; Ordered By:Keyonna Armstrong; Shortness of breath at rest 44. Ventolin HFA 108 (90 Base) MCG/ACT Inhalation Aerosol Solution; INHALE 2 PUFFS BY MOUTH EVERY 4 TO 6 HOURS NEEDED FOR SHORTNESS OFBREATH Rx By: Keyonna Armstrong; Dispense: 0 Days ; #:1 X 18 GM Inhaler; Refill: 5; For: Shortness of breath at rest; TEX = N; Verified Transmission to [id number]; Last Updated By: Nazia Roach;09/27/2017 2:41:43 PM Wheezing 45. Ipratropium-Albuterol 0.5-2.5 (3) MG/3ML Inhalation Solution Rx By: Keyonna Armstrong; For: Wheezing; Dose of 3 MG; Inhalation; TEX = N; Administered by: Sosa Brown MA: 09/27/2017 12:31:00 PM; Last Updated By: Sosa Brown; 09/27/2017 12:35:05 PM Signatures Electronically signed by : Keyonna Armstrong APN; Sep 27 2017 6:18PM MANAGER OF PMO (Author) documented in this encounter Plan of Treatment Upcoming Encounters Date Type Department Care Team (Late st Contact Info) Description 07/25/2024 10:00 AM MANAGER OF PMO Office Visit [facility] Family & Internal Medicine [address] [place] [address] Keyonna Armstrong APNP [address] [place] [address] 07/31/2024 10:15 AM MANAGER OF PMO Office Visit [facility], [facility] [address] [place], [place] [address] Pepe Mitchell MD Three [facility]. [facility] [address] [place] [address] documented as of this encounter Visit Diagnoses Not on filedocumented in this encounter
--- OUTSIDE RECORDS SUMMARY | 2024-07-10 23:01 | XMS_ITS | Encounter Summary ---
Author Organization [facility] Address [address] [place] [address]. [place], [place] [address] [place] [address] Care Team Providers Care Office Clinician Name Role Phone Royer Hidalgo MD Primary Care Provider [phone] Royer Hidalgo MD Primary Care Provider [phone] Encounter Details Date Type Department Care Team (Latest Contact Info) Description 08/26/2015 Abstract [facility] Social History Tobacco Use Types Packs/Day Years Used Date Smoking Tobacco: Never Assessed Comments Unknown Sex and Gender Information Value Date Recorded Sex Assigned at Not on file Legal Sex Female 5:47 PM CDT Gender Identity Female 07/17/2022 10:27 AM IMPRESSION PRINTER Sexual Orientation Straight 07/17/2022 10 :27 AM IMPRESSION PRINTER documented as of this encounter Plan of Treatment Upcoming Encounters Date Type Department Care Team (Late st Contact Info) Description 07/25/2024 10:00 AM IMPRESSION PRINTER Office Visit [facility] Family & Internal Medicine - [place] [address] [place] [address] Keyonna Armstrong APNP [address] [place] [address] 07/31/2024 10:15 AM IMPRESSION PRINTER Office Visit [facility], [facility] [address] [place] [address] Pepe Mitchell MD [facility]. [facility] [address] [place], [place] [address] documented as of this encounter Visit Diagnoses Not on filedocumented in this encounter Care Teams Office Clinician Relationship Specialty Start Date End Date Royer Hidalgo MD PCP - General 04/25/16 09/14/16 Royer Hidalgo MD PCP - General 05/14/15 04/24/16 documented as of this encounter
--- OUTSIDE RECORDS SUMMARY | 2024-07-10 23:01 | XMS_ITS | Encounter Summary ---
Author Organization [facility] Address [address] [place] [address]. [place], [place] [id number] [place] [address] Care Team Providers Care Home Care Manager Rn Name Role Phone Keyonna Armstrong Primary Care Provider [phone] Encounter Details Date Type Department Care Team (Latest Contact Info) Description 07/11/2018 Scan HEALTH INFO [facility] Scanned, Documents Social [...] CDT Gender Identity Female 07/17/2022 10:27 AM NURSING STUDENT Sexual Orientation Straight 07/17/2022 10 :27 AM NURSING STUDENT documented as of this encounter Plan of Treatment Upcoming Encounters Date Type Department Care Team (Late st Contact Info) Description 07/25/2024 10:00 AM NURSING STUDENT Office Visit [facility] Family & Internal Medicine - [place] [address] [place] [address] Keyonna Armstrong APNP [address] [place] [address] 07/31/2024 10:15 AM NURSING STUDENT Office Visit [facility], [facility] [address] [place] [address] Pepe Mitchell MD Three [facility]. [facility] [address] [place] [address] documented as of this encounter Visit Diagnoses Not on filedocumented in this encounter Care Teams Home Care Manager Rn Relationship Specialty Start Date End Date Keyonna Armstrong APNP [address] [place] [address] PCP - General NURSE PRACTITIONER 05/06/18 documented as of this encounter
--- OUTSIDE RECORDS SUMMARY | 2024-07-10 23:01 | XMS_ITS | Encounter Summary ---
Author Organization [facility] Address [address] [place] [address]. [place] [id number] [place] [address] Care Team Providers Care Service Tech/Welder Name Role Phone Keyonna Armstrong Primary Care Provider [phone] Reason for Visit * Reason Onset Date Comments Refill Request 06/28/2018 Encounter Details Date Type Department Care Team (Late st Contact Info) Description 06/28/2018 Telephone [facility] Family & Internal Medicine [facility] [address] [place] [address] Keyonna Armstrong APNP [address] [place] [address] Refill Request Social History Tobacco [...] Gender Identity Female 07/17/2022 10:27 AM CERTIFIED DETENTION DEPUTY Sexual Orientation Straight 07/17/2022 10 :27 AM CERTIFIED DETENTION DEPUTY documented as of this encounter Progress Notes * Precious Oviedo - 06/28/2018 10:19 AM CST PT CALLED [facility] THREE DAYS AGO FOR REFILL OF LORAZEPAM 0.5 MG THREE TIMES DAILY. OK TO FILL? IFIED DETENTION DEPUTY documented in this encounter Plan of Treatment Upcoming Encounters Date Type Department Care Team (Late st Contact Info) Description 07/25/2024 10:00 AM CERTIFIED DETENTION DEPUTY Office Visit [facility] Family & Internal Medicine - [place] [address] [place] [address] Keyonna Armstrong APNP [address] [place] [address] 07/31/2024 10:15 AM CERTIFIED DETENTION DEPUTY Office Visit [facility], [facility] [address] [place], [place] [address] Pepe Mitchell MD [facility]. [facility] [address] [place], [place] [id number] documented as of this encounter Visit Diagnoses Diagnosis Anxiety- Primary Anxiety state, unspecified documented in this encounter Care Teams Service Tech/Welder Relationship Specialty Start Date End Date Keyonna Armstrong APNP [address] [place] [address] PCP - General NURSE PRACTITIONER 05/06/18 documented as of this encounter
--- OUTSIDE RECORDS SUMMARY | 2024-07-10 23:01 | XMS_ITS | Encounter Summary ---
Author Organization [facility] Address [address] [place] [address]. [place], [place] [address] [place] [address] Care Team Providers Care Rn Surgery Name Role Phone Unavailable Primary Care Provider Unavailabl e Encounter Details Date Type Department Care Team (Latest Contact Info) Description 10/05/2017 Abstract [facility] Social History Tobacco Use Types Packs/Day Years Used Date Smoking Tobacco: Never Assessed Comments Unknown Sex and Gender Information Value Date Recorded Sex Assigned at Not on file Legal Sex Female 5:47 PM CDT Gender Identity Female 07/17/2022 10:27 AM RECORDIST CHIEF Sexual Orientation Straight 07/17/2022 10 :27 AM RECORDIST CHIEF documented as of this encounter Progress Notes * Generic Eder Kidd MD - 10/05/2017 3:41 PM CDT Signatures Electronically signed by : Zita Cook, ; Oct 05 2017 3:41PM RECORDIST CHIEF (Author) documented in this encounter Plan of Treatment Upcoming Encounters Date Type Department Care Team (Late st Contact Info) Description 07/25/2024 10:00 AM RECORDIST CHIEF Office Visit [facility] Family & Internal Medicine - [place] [address] [place] [address] Keyonna Armstrong APNP [address] [place] [address] 07/31/2024 10:15 AM RECORDIST CHIEF Office Visit [facility], [place] [address] [place] [address] Pepe Mitchell MD [facility] [address] [place], [place] [id number] documented as of this encounter Visit Diagnoses Not on filedocumented in this encounter
--- OUTSIDE RECORDS SUMMARY | 2024-07-10 23:01 | XMS_ITS | Encounter Summary ---
Author Organization [facility] Address [address] [place] [address]. [place], [place] [address] [place] [address] Care Team Providers Care Car Record Clerk Name Role Phone Royer Hidalgo MD Primary Care Provider [phone] Encounter Details Date Type Department Care Team (Late st Contact Info) Description 04/25/2016 Abstract [facility] Family Medicine - [address] [address] Royer Hidalgo MD [address] [facility] [place] [address] Social History Tobacco Use Types Packs/Day Years Used Date Smoking Tobacco: Never Assessed Comments Unknown Sex and Gender Information Value Date Recorded Sex Assigned at Not on file Legal Sex Female 5:47 PM CDT Gender Identity Female 07/17/2022 10:27 AM MILL ATTENDANT Sexual Orientation Straight 07/17/2022 10 :27 AM MILL ATTENDANT documented as of this encounter Last Filed Vital Signs Vital Sign Reading Time Taken Comments Blood Pressure 139/86 04/25/2016 11:36 AM CDT Pulse 80 04/25/2016 11:36 AM CDT Temperature - - Respiratory Rate - - Oxygen Saturation - - Inhaled Oxygen Concentration - - Weight 135.5 kg (298 lb 12.8 oz) 2015 11:36 AM CDT Height 167.6 cm (5' 6) 04/25/2016 11:3 6 AM CDT Body Mass Index 48.23 04/25/2016 11:36 AM CDT documented in this encounter Progress Notes * Royer Hidalgo MD - 04/25/2016 11:30 AM CDT Reason For Visit Chronic Recheck Visit Chief Complaint Pt is here for checkup refill meds and needs labwork and discuss urinary issues History of Present Illness HPI Free Text: 45 yo female here for 6 month check-up of chronic medical conditions. Overall, she is feeling well.She does have some mild urinary frequency, urgency, and feeling of incomplete voiding for the past week. No dysuria or hematuria. Tolerating current meds well w/o side effects. No refills needed. Duefor labs. Has SYRUP MIXER for well woman care. Review of Systems Constitutional: Normal. ENT: normal. Cardiovascular: Normal. Respiratory: Normal. Gastrointestinal: Normal. Integumentary: Normal. Musculoskeletal: Normal. Neurological: Normal. Psychiatric: Normal. Active Problems 1. Anxiety (300.00) (F41.9) 2. Constipation (564.00) (K59.00) 3. Depression (311) (F32.9) 4. Esophageal reflux (530.81) (K21.9) 5. History of motion sickness (V13.89) (Z87.898) 6. Hypertension (401.9) (I10) 7. Insomnia (780.52) (G47.00) 8. Morbid obesity (278.01) (E66.01) 9. Obstructive sleep apnea (327.23) (G47.33) 10. Right ovarian cyst (620.2) (N83.201) Past Medical History 1. Anxiety (300.00) (F41.9) [...] BY MOUTH TWICE A DAY NEEDED; Therapy: 08Apr2012 to (Evaluate:29Jul2016) Requested for: 76Lvl9484; Last Rx:[id number] Ordered 2. Enpresse-28 Oral Tablet; TAKE 1 TABLET BY MOUTH EVERY DAY; Therapy: 30May2012 to (Evaluate:05May2016) Requested for: 85Pob3360; Last Rx:[id number] Ordered 3. HydroCHLOROthiazide 25 MG Oral Tablet; TAKE ONE TABLET BY MOUTH EVERY DAY; Therapy: 20May2012 to (Evaluate:46Vou9006) Requested for: 30Tjc1232; Last Rx:[id number] Ordered 4. Ibuprofen 800 MG Oral Tablet; TAKE 1 TABLET 3 TIMES DAILY WITH FOOD NEEDED for pain; Therapy: 11Aug2014 to (Evaluate:98Yic1575) Requested for: 11Byh6686; Last Rx:[id number] Ordered 5. LORazepam 0.5 MG Oral Tablet; TAKE 1 TABLET BY MOUTH 3 TIMES A DAY NEEDED; Therapy: 82Bvl0106 to (Evaluate:39Qxu1736) Requested for: 75Ucr3614; Last Rx:[id number] Ordered 6. MetFORMIN HCl ER 500 MG Oral Tablet Extended Release 24 Hour; TAKE 3 TABLETS EVERY MORNING WITH BREAKFAST; Therapy: 62Lse4062 to (Last Rx:[id number]) Ordered 7. Methocarbamol 750 MG Oral Tablet; TAKE 1 TO 2 TABLETS 3 TIMES DAILY NEEDED FOR MUSCLE SPASM; Therapy: 11Aug2014 to (Evaluate:75Bqn0018) Requested for: 70Fso2829; Last Rx:[id number] Ordered 8. Pantoprazole Sodium 40 MG Oral Tablet Delayed Release; TAKE ONE TABLET BY MOUTH EVERY DAY; Therapy: 08Jun2012 to (Evaluate:22Nsg6385) Requested for: 93Lug6449; Last Rx:[id number] Ordered 9. Polyethylene Glycol 3350 Oral Powder; MIX 1 CAPFUL (17GM) IN 8 OUNCES OF WATER, JUICE, OR TEA AND DRINK DAILY; Therapy: 54Wjq4314 to (Evaluate:31Jul2016) Requested for: 06Aug2015; Last Rx:[id number] Ordered 10. Venlafaxine HCl ER 75 MG Oral Capsule Extended Release 24 Hour; TAKE 3 CAPSULES ONCE A DAY; Therapy: 13May2012 to (Evaluate:22Apr2016) Requested for: 77Xdl7404; Last Rx:[id number] Ordered 11. Vitamin D3 1000 UNIT Oral Tablet; Therapy: (Recorded:23Sep2013) to Recorded 12. Zolpidem Tartrate 10 MG Oral Tablet; TAKE 1 TABLET BY MOUTH AT BEDTIME NEEDED FOR SLEEP; Therapy: 59Fkz1485 to (Evaluate:04Oct2016) Requested for: 73Qru1156; Last Rx:[id number] Ordered Allergies 1. No Known Drug Allergies Immunizations Influenza --- Series1: 19Jun2012 Vitals Recorded: 25Apr2016 11:36AM Heart Rate 80 Respiration 16 Systolic 139 Diastolic 86 Height 5 ft 6 in Weight 298 lb 12.8 oz BMI Calculated 48.23 BSA Calculated 2.37 Physical Exam Constitutional General appearance: No acute [...] and nails: Normal without clubbing or cyanosis. Inspection/palpation of joints, bones, and muscles: Normal. Skin Skin and subcutaneous tissue: Normal without rashes or lesions. Neurologic Cranial nerves: Cranial nerves 2-12 intact. Reflexes: 2+ and symmetric. Psychiatric Orientation to person, place, and time: Normal. Mood and affect: Normal. Assessment 1. Impaired fasting glucose (790.21) (R73.01) 2. Hypertension (401.9) (I10) 3. Morbid obesity (278.01) (E66.01) 4. Urinary symptom or sign (788.99) (R39.9) 5. Anxiety (300.00) (F41.9) 6. Insomnia (780.52) (G47.00) 7. Esophageal reflux (530.81) (K21.9) 8. Constipation (564.00) (K59.00) Plan Diabetic peripheral neuropathy, Hypertension, Impaired fasting glucose, Insomnia 1. Hemoglobin A1C ( HA1C ); Status:Hold For - Manual Activation; Requested for:25Apr2016; Perform:[facility]; Due:25May2016; Last Updated By:Jeni Huber; 04/25/2016 12:03:36 PM;Ordered; For:Diabetic peripheral neuropathy, Hypertension, Impaired fasting glucose, Insomnia; Ordered By:Royer Hidalgo; Health Maintenance, Hypertension, Impaired fasting glucose, Morbid obesity 2. *A1C In Office; Status:Active; Requested for:25Apr2016; Perform:In Office; Due:25May2016;Ordered; For:Health Maintenance, Hypertension, Impaired fasting glucose, Morbid obesity; Ordered By:Royer Hidalgo; 3. CBC W Differential; Status:Hold For - Manual Activation; Requested for:25Apr2016; Perform:[facility]; Due:25May2016;Ordered; For:Health Maintenance, Hypertension,Impaired fasting glucose, Morbid obesity; Ordered By:Royer Hidalgo; 4. Compr Metabolic Prof ( CMP ); Status:Hold For - Manual Activation; Requested for:25Apr2016; Perform:[facility]; Due:25May2016;Ordered; For:Health Maintenance, Hypertension,Impaired fasting glucose, Morbid obesity; Ordered By:Royer Hidalgo; 5. Lipid Profile; Status:Hold For - Manual Activation; Requested for:25Apr2016; Perform:[facility]; Due:25May2016;Ordered; For:Health Maintenance, Hypertension,Impaired fasting glucose, Morbid obesity; Ordered By:Royer Hidalgo; 6. TSH W Reflex Free T4; Status:Hold For - Manual Activation; Requested for:25Apr2016; Perform:[facility]; Due:25May2016;Ordered; For:Health Maintenance, Hypertension,Impaired fasting glucose, Morbid obesity; Ordered By:Royer Hidalgo; Urinary symptom or sign 7. *Urine dip auto In Office; Status:Hold For - Specimen/Data Collection; Requested for:25Apr2016; Perform:In Office; Due:25May2016;Ordered; For:Urinary symptom or sign; Ordered By:Royer Hidalgo; Discussion/Summary Medication list reviewed/reconciled. Labs drawn. Flu shot and Tdap given. Pap/mammo per SYRUP M[employer]ER. Chronic conditions stable, no changes to meds. Check UA due to urinary sx. F/U in 6 mos, sooner if needed. Signatures Electronically signed by : Royer Hidalgo M.D.; Apr 25 2016 1:07PM MILL ATTENDANT (Author) documented in this encounter Plan of Treatment Upcoming Encounters Date Type Department Care Team (Late st Contact Info) Description 07/25/2024 10:00 AM MILL ATTENDANT Office Visit [facility] Family & Internal Medicine - [place] [address] [place] [address] Keyonna Armstrong APNP [address] [place] [address] 07/31/2024 10:15 AM MILL ATTENDANT Office Visit [place] [facility], [place] [address] [place], [place] [phone] Pepe Mitchell MD [facility]. [place] [address] [place], [place] [phone] documented as of this encounter Procedures Procedure Name Priority Date/Time Associated Diagnosis Comments URINALYSIS AUTO DIP Routine 04/25/2016 1 :15 PM CDT TSH W/REFLEX Routine 04/25/2016 11:50 AM CDT HEMOGLOBIN, GLYCOSYLATED Routine 04/25/2016 11:50 AM CDT COMPREHENSIVE METABOLIC PANEL Routine 04/25/2016 11:50 AM CDT LIPID PANEL Routine 04/25/2016 11:50 AM CDT CBC W/DIFF AUTOMATED Routine 04/25/2016 11:50 AM CDT documented in this encounter Results * URINALYSIS AUTO DIP (04/25/2016 1:15 PM CDT) COLOR (U) Yellow [facility] T O EPIC CONVERSION TRANSPARENCY Slightly cloudy [facility] TO [facility]IC CONVERSION GLUCOSE Negative [facility] EPIC CONVERSION BILIRUBIN (U) Negative [facility] UP TO EPIC CONVERSION KETONE (U) Negative [facility] TO [facility]IC CONVERSION SPECIFIC GRAVITY (U) 1.010 [facility] TO [facility]IC CONVERSION BLOOD (U) Non Hemolyzed-Tr kelly [facility] TO [facility]IC CONVERSION PH (U) 7 5.0 - 7.0 [facility] T O EPIC CONVERSION PROTEIN (ELP) (U) Negative [facility] TO EPIC CONVERSION UROBILINOGEN 0.2 E.U./dL [facility] OUP TO EPIC CONVERSION NITRITES nrg [facility] T O EPIC CONVERSION LEUKOCYTES (U) Negative [facility] OUP TO EPIC CONVERSION 04/25/2016 1:15 PM CDT 04/25/2016 1:15 PM CDT Narrative [facility] TO [facility]IC CONVERSION - 04/25/2016 1:15 PM CDT Result Communication: No patient communication needed at this time Royer Hidalgo MD URINE ORDERABLES Final Result [facility] TO [facility]IC CONVERSION * (ABNORMAL) COMPREHENSIVE METABOLIC PANEL (04/25/2016 11:50 AM CDT) SODIUM S/P/B 134(L) 136 - 145 mmol/L [facility] TO EPIC CONVERSION POTASSIUM S/P/B 4.6 3.5 - 5.1 mmol/L [facility] TO EPIC CONVERSION CHLORIDE S/P/B 93(L) 98 - 107 mmol/L [facility] TO EPIC CONVERSION CO2 26 22 - 29 mmol/L [facility] TO EPIC CONVERSION ANION GAP 20 8 - 20 [facility] T O EPIC CONVERSION BUN 10 8 - 23 mg/dL [facility] TO EPIC CONVERSION CREATININE S/P/B 0.74 0.60 - 1.10 mg/dL [facility] TO EPIC CONVERSION GFR ESTIMATE >60 >60 mL/min/1 .73m'2 [facility] TO EPIC CONVERSION EGFR AFR. AMER. >60 NOTE: eGFR is not calculated for patients <18 years of age. This is an estimated GFR (CKD EPI) and should not be used for calculating drug doses. >60 mL/min/1 .73m'2 [facility] TO EPIC CONVERSION GLUCOSE 89 70 - 99 mg/dL [facility] TO [facility]IC CONVERSION CALCIUM S/P/B 9.8 8.6 - 10.2 mg/dL [facility] TO EPIC CONVERSION BILIRUBIN TOTAL S/P/B 0.3 0.2 - 1.2 mg/dL [facility] TO EPIC CONVERSION AST 16 0 - 32 U/L [facility] TO EPIC CONVERSION ALT 15 0 - 33 U/L [facility] TO EPIC CONVERSION ALKALINE PHOSPHATASE S/P/B 74 35 - 104 U/L [facility] TO EPIC CONVERSION TOTAL PROTEIN S/P/B 7.4 6.4 - 8.3 g/dL [facility] TO EPIC CONVERSION ALBUMIN S/P/B 4.4 3.5 - 5.2 g/dL [facility] TO EPIC CONVERSION GLOBULIN 3.0 2.3 - 3.6 g/dL [facility] TO EPIC CONVERSION A/G RATIO 1.5 1.0 - 2.0 [facility] TO [facility]IC CONVERSION 04/25/2016 11:5 0 AM CDT 04/25/2016 11:50 AM CDT Narrative [facility] TO [facility]IC CONVERSION - 04/25/2016 10:36 PM CDT [id number] 5:49AM by Royer Hidalgo: ??Hi Veronica, Here are your lab results and everything looks good! ??There are a few values that fall slightly outside the normal range, but none of these are worrisome. Your urinalysis was also normal (not printed), no signs of infection. ??PLease let us know if you have any questions. Take care, Dr. Hidalgo Result Communication: Mail Results to Patient Royer Hidalgo MD LABORATORY Final Result [facility] TO EPIC CONVERSION * (ABNORMAL) CBC W/DIFF AUTOMATED (04/25/2016 11:50 AM CDT) WBC 12.1(H) 4.8 - 10.8 X10'3/uL [facility] TO EPIC CONVERSION RBC 4.88 4.20 - 5.40 X10'6/uL [facility] TO EPIC CONVERSION HGB 15.1 12.0 - 16.0 g/dL [facility] TO EPIC CONVERSION HCT 47.1 38.0 - 48.0 % [facility] TO EPIC CONVERSION MCV 96.5 81.0 - 99.0 fL [facility] TO EPIC CONVERSION MCH 30.9 27.0 - 31.0 pg [facility] TO EPIC CONVERSION MCHC 32.1 32.0 - 36.0 g/dL [facility] TO EPIC CONVERSION RDW 13.8 11.5 - 14.5 % [facility] TO EPIC CONVERSION PLT 336 130 - 400 X10'3/uL [facility] TO EPIC CONVERSION GLUCOSE 10.4 9.3 - 12.2 fL [facility] TO EPIC CONVERSION BASOPHILS % 0.6 0.0 - 1.0 % [facility] TO EPIC CONVERSION EOSINOPHILS % 0.7(L) 1.0 - 3.0 % [facility] TO EPIC CONVERSION NEUTROPHILS % 63.7 43.0 - 65.0 % [facility] TO EPIC CONVERSION LYMPHOCYTES % 26.3 20.0 - 46.0 % [facility] TO EPIC CONVERSION IMMATURE GRANS % 0.2 0.0 - 1.0 % [facility] TO EPIC CONVERSION DIFFERENTIAL TYPE AUTOMATED [facility] TO [facility]IC CONVERSION MONOCYTES 8.5 5.0 - 12.0 % [facility] TO [facility]IC CONVERSION 04/25/2016 11:5 0 AM CDT 04/25/2016 11:50 AM CDT Narrative [facility] TO EPIC CONVERSION - 04/25/2016 9:56 PM CDT [id number] 5:49AM by Royer Hidalgo: ??Hi Veronica, Here are your lab results and everything looks good! ??There are a few values that fall slightly outside the normal range, but none of these are worrisome. Your urinalysis was also normal (not printed), no signs of infection. ??PLease let us know if you have any questions. Take care, Dr. Hidalgo Result Communication: Mail Results to Patient us Royer Hidalgo MD LABORATORY Final Result [facility] TO EPIC CONVERSION * (ABNORMAL) LIPID PANEL (04/25/2016 11:50 AM CDT) CHOLESTEROL 163 <200 MG/DL [facility] TO EPIC CONVERSION Comment: Result Comment: NOTE: Acetaminophen, N Acetyl p benzoquinone imine (NAPQI), N acetylcysteine (NAC), Metamizole, 4 Aminoantipyrine (4 AAP) and 4 Methylamino antipyrine (4 MAP) at high concentrations can cause falsely low results on Lactate, Uric Acid, Cholesterol, Triglyceride, HDL, and Direct LDL. TRIGLYCERIDES 217(H) <150 MG/DL [facility] TO EPIC CONVERSION HDL 43(L) >59 MG/DL [facility] TO EPIC CONVERSION LDL (CALCULATED) 77 <100 MG/DL [facility] TO EPIC CONVERSION NON HDL CHOLESTEROL 120 <130 MG/DL [facility] TO EPIC CONVERSION Comment: Result Comment: NOTE: WHEN THE TRIGLYCERIDES ARE >200 mg/dL, NON HDL C IS A SECONDARY TARGET OF THERAPY, WITH A GOAL 30 mg/dL HIGHER THAN THE IDENTIFIED LDL C GOAL. CHOL/HDL RATIO 3.8 0.0 - 4.5 [facility] TO EPIC CONVERSION VLDL CHOLESTEROL (LMP) 43 5 - 55 MG/DL [facility] TO EPIC CONVERSION LIPID INTERPRETATION NIH CONCENSUS REPORT RECOMMENDATI ONS: ?ADULT ?CHILD ??LOW RISK: ?CHOLESTERO L ? <200 ? <170 ?TRIGLYCERI DE ?<150 ?--- ?HDL ? >=60 ?--- ?LDL ? <100 ? <110 ?BORDERLINE : ?CHOLESTERO L ? 200-239 ?? 170-199 ?TRIGLYCERI DE ?150-199 ? --- ?HDL ?40-59 ?--- ?LDL ? 100-159 ?? 110-129 ?HIGH RISK: ?CHOLESTERO L ? >=240 ?>=200 ?TRIGLYCERI DE ?>=200 ? --- ?HDL ?<40 ?--- ?LDL ? >=160 ?>=130 [facility] TO EPIC CONVERSION 04/25/2016 11:5 0 AM CDT 04/25/2016 11:50 AM CDT Narrative [facility] TO EPIC CONVERSION - 04/25/2016 10:36 PM CDT [id number] 5:49AM by Royer Hidalgo: ??Davdi Martin, Here are your lab results and everything looks good! ??There are a few values that fall slightly outside the normal range, but none of these are worrisome. Your urinalysis was also normal (not printed), no signs of infection. ??PLease let us know if you have any questions. Take care, Dr. Hidalgo Result Communication: Mail Results to Patient us Royer Hidalgo MD LABORATORY Final Result [facility] TO EPIC CONVERSION * TSH W/REFLEX (SNS) (04/25/2016 11:50 AM CDT) TSH 1.21 0.27 - 4.20 mIU/mL [facility] TO EPIC CONVERSION Comment:Result Comment: FREE T4 NOT INDICATED 04/25/2016 11:5 0 AM CDT 04/25/2016 11:50 AM CDT Narrative [facility] TO EPIC CONVERSION - 04/25/2016 10:36 PM CDT [id number] 5:49AM by Royer Hidalgo: ??David Martin, Here are your lab results and everything looks good! ??There are a few values that fall slightly outside the normal range, but none of these are worrisome. Your urinalysis was also normal (not printed), no signs of infection. ??PLease let us know if you have any questions. Take Dr. Rocky rahman Result Communication: Mail Results to Patient Royer Hidalgo MD LABORATORY Final Result Performing Organization Address [facility] de Phone Number [facility] TO EPIC CONVERSION * HEMOGLOBIN, GLYCOSYLATED (04/25/2016 11:50 AM CDT) HGB A1C 5.3 4.8 - 5.6 % [facility] TO [facility]IC CONVERSION Comment: Result Comment: ?? ADA GUIDELINES 2010 5.7 TO 6.4% INCREASED RISK OF DIABETES > OR = 6.5% CONSISTENT WITH DIABETES ESTIMATED AVG GLUCOSE 105 mg/dL [facility] TO EPIC CONVERSION 04/25/2016 11:5 0 AM CDT 04/25/2016 11:50 AM CDT Narrative [facility] TO [facility]IC CONVERSION - 04/25/2016 10:10 PM CDT [id number] 5:49AM by Royer Hidalgo: ??Hi Veronica, Here are your lab results and everything looks good! ??There are a few values that fall slightly outside the normal range, but none of these are worrisome. Your urinalysis was also normal (not printed), no signs of infection. ??PLease let us know if you have any questions. Take Dr. Rocky rahman Result Communication: Mail Results to Patient us Royer Hidalgo MD LABORATORY Final Result Performing Organization Address [facility] de Phone Number [facility] TO EPIC CONVERSION documented in this encounter Visit Diagnoses Not on filedocumented in this encounter Care Teams Car Record Clerk Relationship Specialty Start Date End Date Royer Hidalgo MD PCP - General 04/25/16 09/14/16 documented as of this encounter
--- OUTSIDE RECORDS SUMMARY | 2024-07-10 23:01 | XMS_ITS | Encounter Summary ---
Author Organization [facility] Address [address] [place] [address]. [place], [place] [id number] [place] [address] Care Team Providers Care Paper Sorter Name Role Phone Royer Hidalgo MD Primary Care Provider [phone] Royer Hidalgo MD Primary Care Provider [phone] Encounter Details Date Type Department Care Team (Latest Contact Info) Description 05/27/2015 Abstract [facility] Group Social History Tobacco Use Types Packs/Day Years Used Date Smoking Tobacco: Never Assessed Comments Unknown Sex and Gender Information Value Date Recorded Sex Assigned at Not on file Legal Sex Female 5:47 PM CDT Gender Identity Female 07/17/2022 10:27 AM CERAMIC MAKER DEMONSTRATOR Sexual Orientation Straight 07/17/2022 10 :27 AM CERAMIC MAKER DEMONSTRATOR documented as of this encounter Plan of Treatment Upcoming Encounters Date Type Department Care Team (Late st Contact Info) Description 07/25/2024 10:00 AM CERAMIC MAKER DEMONSTRATOR Office Visit [facility] Family & Internal Medicine - [place] [address] [place] [address] Keyonna Armstrong APNP [address] [place] [address] 07/31/2024 10:15 AM CERAMIC MAKER DEMONSTRATOR Office Visit [place] [facility] [address] [place] [address] Pepe Mitchell MD [facility]. [facility] [address], [place] [address] documented as of this encounter Visit Diagnoses Not on filedocumented in this encounter Care Teams Paper Sorter Relationship Specialty Start Date End Date Royer Hidalgo MD PCP - General 04/25/16 09/14/16 Royer Hidalgo MD PCP - General 05/14/15 04/24/16 documented as of this encounter
--- OUTSIDE RECORDS SUMMARY | 2024-07-10 23:01 | XMS_ITS | Encounter Summary ---
Author Organization [facility] Address [facility]. [place], [place] [address] [place] [address] Care Team Providers Care Maintenance Instructor Name Role Phone Unavailable Primary Care Provider Unavailabl e Encounter Details Date Type Department Care Team (Latest Contact Info) Description 10/29/[address] [facility] , Claudia Gaines MD Social History Tobacco Use Types Packs/Day Years Used Date Smoking Tobacco: Never Assessed Comments Unknown Sex and Gender Information Value Date Recorded Sex Assigned at Not on file Legal Sex Female 5:47 PM CDT Gender Identity Female 07/17/2022 10:27 AM GENERAL MANAGER FOOD Sexual Orientation Straight 07/17/2022 10 :27 AM GENERAL MANAGER FOOD documented as of this encounter Progress Notes * Claudia Gaines Md, MD - 10/29/2017 9:38 AM CDT Signatures Electronically signed by : Flora Blackwell, ; Oct 29 2017 9:38AM GENERAL MANAGER FOOD (Author) documented in this encounter Plan of Treatment Upcoming Encounters Date Type Department Care Team (Late st Contact Info) Description 07/25/2024 10:00 AM GENERAL MANAGER FOOD Office Visit [facility] Family & Internal Medicine - [place] [address] [place] [address] Keyonna Armstrong APNP [address] [place] [address] 07/31/2024 10:15 AM GENERAL MANAGER FOOD Office Visit [facility], [place] [address] [place] [address] Pepe Mitchell MD [facility]. [facility] [address] [place] [address] documented as of this encounter Visit Diagnoses Not on filedocumented in this encounter
--- OUTSIDE RECORDS SUMMARY | 2024-07-10 23:01 | XMS_ITS | Encounter Summary ---
Author Organization [facility] Address [address] [place] [address]. [place], [place] [address] [place] [address] Care Team Providers Care Frame Wirer Name Role Phone Keyonna Armstrong Primary Care Provider +1 [phone] Reason for Visit * Reason Onset Date Comments Medication Problem 09/25/2018 Encounter Details Date Type Department Care Team (Late st Contact Info) Description 09/25/2018 Telephone [facility] Medical Group Family & Internal Medicine [facility] [address] [place] [address] Keyonna Armstrong APNP [address] [place] [address] Medication Problem Social History Tobacco [...] Gender Identity Female 07/17/2022 10:27 AM SUPERVISOR ELECTRON TUBE PROCESSING Sexual Orientation Straight 07/17/2022 10 :27 AM SUPERVISOR ELECTRON TUBE PROCESSING documented as of this encounter Progress Notes * Sherlyn Omalley RN - 09/25/2018 3:55 PM CST Spoke to patient. She had called in saying that the pharmacist told her that the control was not the same as she was previously getting. Patient currently had a refill at the pharmacy and this nurse put the refill that was sent in today on hold until further notice. Patient notified and told that she needs to have an OBGYN appointment. Verbalized understanding and told this nurse that she has an appointment for 10/09 and Keyonna wrote the name and time down of that Could not find in the notes. RVISOR ELECTRON TUBE PROCESSING documented in this encounter Plan of Treatment Upcoming Encounters Date Type Department Care Team (Late st Contact Info) Description 07/25/2024 10:00 AM SUPERVISOR ELECTRON TUBE PROCESSING Office Visit [facility] Medical Group Family & Internal Medicine - [address] [address] Keyonna Armstrong APNP [address] [place] [address] 07/31/2024 10:15 AM SUPERVISOR ELECTRON TUBE PROCESSING Office Visit [facility], [facility] [address] [place] [address] Pepe Mitchell MD [facility]. [facility] [address] [place], [place] [address] documented as of this encounter Visit Diagnoses Not on filedocumented in this encounter Care Teams Frame Wirer Relationship Specialty Start Date End Date Keyonna Armstrong APNP [address] [place] [address] PCP - General NURSE PRACTITIONER 05/06/18 documented as of this encounter
--- OUTSIDE RECORDS SUMMARY | 2024-07-10 23:01 | XMS_ITS | Encounter Summary ---
Author Organization [facility] Address [address] [place] [address]. [place], [place] [address] [place] [address] Care Team Providers Care Dough Catcher Name Role Phone Keyonna Armstrong Primary Care Provider +1 [phone] Encounter Details Date Type Department Care Team (Late st Contact Info) Description 04/23/2018 Abstract [facility], [address] [place] [address] Antoinette Ochoa MD [address] [facility] [address], [place] [address] Social History Tobacco Use Types Packs/Day Years Used Date Smoking Tobacco: Never Assessed Comments Unknown Sex and Gender Information Value Date Recorded Sex Assigned at Not on file Legal Sex Female 5:47 PM CDT Gender Identity Female 07/17/2022 10:27 AM CORPORATE BUYER Sexual Orientation Straight 07/17/2022 10 :27 AM CORPORATE BUYER documented as of this encounter Progress Notes * Generic Conversion MD Marti - 04/23/2018 9:50 AM CDT Message Recorded as Task Date: 04/19/2018 10:44 AM, Created By: Nenita Nicolas Task Name: Call Back Assigned To: Jorden Barrios Nurse Team Regarding Patient: Veronica Evangelista, Status: In Progress Comment: Nenita Nicolas - 19 Apr 2018 10:44 AM TASK CREATED Caller: Self; General Medical Question; Pt is checking to see if her labs were received, she has had a lot of blood work done and wants to be sure Dr. Andrzej Barrios has it for her appt. If not please sent to [facility] in Maria L Lloyd - 22 Apr 2018 11:15 AM TASK EDITED called lab and was told no labs were done since october 17 except pain mangement Maria L Singh - 22 Apr 2018 11:18 AM TASK EDITED called pt left message no labs are done since october 17 and we seen her was november 13 so no labs but pain management on some after that let number to call ofiice Signatures Electronically signed by : Dm HancockP.N.; Apr 23 2018 9:50AM CORPORATE BUYER (Author) documented in this encounter Plan of Treatment Upcoming Encounters Date Type Department Care Team (Late st Contact Info) Description 07/25/2024 10:00 AM CORPORATE BUYER Office Visit [facility] Medical Group Family & Internal Medicine - [address] [address] Keyonna Armstrong APNP [address] [place] [address] 07/31/2024 10:15 AM CORPORATE BUYER Office Visit [facility], [facility] [address] [place], [place] [id number] Pepe Mitchell MD [facility]. [facility] [address] [place], [place] [address] documented as of this encounter Visit Diagnoses Not on filedocumented in this encounter Care Teams Dough Catcher Relationship Specialty Start Date End Date Keyonna Armstrong APNP [address] [place] [address] PCP - General NURSE PRACTITIONER 05/06/18 documented as of this encounter
--- OUTSIDE RECORDS SUMMARY | 2024-07-10 23:01 | XMS_ITS | Encounter Summary ---
Author Organization [facility] Address [address] [place] [address]. [place], [place] [address] [place] [address] Care Team Providers Care Animal Science Instructor Name Role Phone Keyonna Armstrong Primary Care Provider +[phone] Reason for Visit * Reason Onset Date Comments Appointment Request 06/04/2018 Encounter Details Date Type Department Care Team (Late st Contact Info) Description 06/04/2018 Telephone [facility] Family & Internal Medicine [facility] [address] [place] [address] Keyonna Armstrong APNP [address] [place] [address] Appointment Request Social History Tobacco Use Types Packs/Day Years Used Date Smoking Tobacco: Never Assessed Comments Unknown Sex and Gender Information Value Date Recorded Sex Assigned at Not on file Legal Sex Female 5:47 PM CDT Gender Identity Female 07/17/2022 10:27 AM CARRIAGE RIDER Sexual Orientation Straight 07/17/2022 10 :27 AM CARRIAGE RIDER documented as of this encounter Progress Notes * Nenita Young MA - 06/04/2018 9:25 AM CST Patient made appointment IAGE RIDER * Nenita Young MA - 06/04/2018 8:45 AM CST Patient needs to schedule TCM appointment IAGE RIDER documented in this encounter Plan of Treatment Upcoming Encounters Date Type Department Care Team (Late st Contact Info) Description 07/25/2024 10:00 AM CARRIAGE RIDER Office Visit [facility] Family & Internal Medicine - [place] [address] [place] [address] Keyonna Armstrong APNP [address] [place] [address] 07/31/2024 10:15 AM CARRIAGE RIDER Office Visit [facility], [facility] [address] [place], [place] [address] Pepe Mitchell MD [facility]. [facility] [address] [place], [place] [id number] documented as of this encounter Visit Diagnoses Not on filedocumented in this encounter Care Teams Animal Science Instructor Relationship Specialty Start Date End Date Keyonna Armstrong APNP [facility] [place] [address] PCP - General NURSE PRACTITIONER 05/06/18 documented as of this encounter
--- OUTSIDE RECORDS SUMMARY | 2024-07-10 23:01 | XMS_ITS | Encounter Summary ---
Author Organization [facility] Address [facility]. [place], [place] [address] [place] [address] Care Team Providers Care Tobacco Sizer Name Role Phone Unavailable Primary Care Provider Unavailabl e Encounter Details Date Type Department Care Team (Latest Contact Info) Description 10/26/2017 Abstract [facility] Medical Group Social History Tobacco Use Types Packs/Day Years Used Date Smoking Tobacco: Never Assessed Comments Unknown Sex and Gender Information Value Date Recorded Sex Assigned at Not on file Legal Sex Female 5:47 PM CDT Gender Identity Female 07/17/2022 10:27 AM SOLAR PANEL INSTALLER Sexual Orientation Straight 07/17/2022 10 :27 AM SOLAR PANEL INSTALLER documented as of this encounter Progress Notes * YOBANI Cruz - 10/26/2017 4:32 PM CDT Message Have attempted to call pt multiple times withoug succes. Would still like to speak with pt regarding her results. KAILEY endocrinology referral placed. Verified Results QU-METANEPHRINES, FRACT. LC/MS/MS, 24 HR URINE [id number] 11:46AM Keyonna Armstrong Test Name Result Flag Reference 24 HR URINE VOLUME 3000 mL METANEPHRINE 123 mcg/24 h 58-203 This test was developed and its analytical performance characteristics have been determined by [employer] [place]. It has not been cleared or approved by the U.S. Food and Drug Administration. This assay has been validated pursuant to the CLIA regulations and is used for clinical purposes. NORMETANEPHRINE 887 mcg/24 h H 88-649 This test was developed and its analytical performance characteristics have been determined by [employer] [place] [place]. It has not been cleared or approved by the U.S. Food and Drug Administration. This assay has been validated pursuant to the CLIA regulations and is used for clinical purposes. METANEPHRINES, TOTAL 1010 mcg/24 h H 182-739 A four fold elevation of urinary normetanephrines is extremely likely to be due to a tumor, while a four fold elevation of urinary metanephrines is highly suggestive, but not diagnostic of the tumor. Measurement of plasma Metanephrines and Chromogranin A is recommended for confirmation. Test Performed at: [facility] [employer] [id number] [place] [address] LYDIA ALDANA MD,PHD QU-CATECHOLAMINES FRAC AND CREATININE, [address] [place] [address] 19Oct2017 11:46AM Keyonna Armstrong Test Name Result Flag Reference 24 HR URINE VOLUME 3000 mL EPINEPHRINE, 24 HR URINE see note Results are below the reportable range for this analyte, which is 2.0 mcg/L. This test was developed and its analytical performance characteristics have been determined by [employer] [place]. It has not been cleared or approved by the U.S. Food and Drug Administration. This assay has been validated pursuant to the CLIA regulations and is used for clinical purposes. NOREPINEPHRINE, 24 HR UR 125 mcg/24 h H 15-100 This test was developed and its analytical performance characteristics have been determined by [employer] [place]. It has not been cleared or approved by the U.S. Food and Drug Administration. This assay has been validated pursuant to the CLIA regulations and is used for clinical purposes. CALCULATED TOTAL (E+NE) 125 mcg/24 h H 26-121 This test was developed and its analytical performance characteristics have been determined by [employer] [place] [place]. It has not been cleared or approved by the U.S. Food and Drug Administration. This assay has been validated pursuant to the CLIA regulations and is used for clinical purposes. DOPAMINE, 24 HR URINE 399 mcg/24 h 52-480 This test was developed and its analytical performance characteristics have been determined by [employer] [place] [place]. It has not been cleared or approved by the U.S. Food and Drug Administration. This assay has been validated pursuant to the CLIA regulations and is used for clinical purposes. CREATININE, 24 HOUR URINE 1.96 g/24 h 0.63-2.50 REPORT COMMENT: SPLIT 10/17/2017 FROM [id number] Test Performed at: [facility]/[address] LYDIA ALDANA MD,PHD QU-COMPREHENSIVE METABOLIC PANEL [id number] 17Oct2017 11:18AM Keyonna Armstrong Test Name Result Flag Reference GLUCOSE 91 mg/dL 65-99 Fasting reference interval UREA NITROGEN (BUN) 19 mg/dL 7-25 CREATININE 0.80 mg/dL 0.50-1.10 eGFR NON-AFR. KOSOVAN 87 > OR = 60 UNITS: mL/min/1.73m2 eGFR 100 > OR = 60 UNITS: mL/min/1.73m2 BUN/CREATININE RATIO 6-22 NOT APPLICABLE (calc) SODIUM 139 mmol/L 135-146 POTASSIUM 4.2 mmol/L 3.5-5.3 CHLORIDE 102 mmol/L 98-110 CARBON DIOXIDE 29 mmol/L 20-31 CALCIUM 9.6 mg/dL 8.6-10.2 PROTEIN, TOTAL 7.0 g/dL 6.1-8.1 ALBUMIN 4.0 g/dL 3.6-5.1 GLOBULIN 3.0 1.9-3.7 UNITS: g/dL (calc) ALBUMIN/GLOBULIN RATIO 1.3 (calc) 1.0-2.5 BILIRUBIN, TOTAL 0.3 mg/dL 0.2-1.2 ALKALINE PHOSPHATASE 66 U/L 33-115 AST 17 U/L 10-35 ALT 15 U/L 6-29 Test Performed at: [facility] [place] [address] [place] [address] GENE VILLAR DO,MPH QU-METANEPHRINES, FRACT, FREE, LC/MS/MS, PLASMA [id number] 17Oct2017 11:18AM Keyonna Armstrong Test Name Result Flag Reference METANEPHRINE, FREE 31 pg/mL <=57 This test was developed and its analytical performance characteristics have been determined by [facility] [place]. It has not been cleared or approved by the U.S. Food and Drug Administration. This assay has been validated pursuant to the CLIA regulations and is used for clinical purposes. NORMETANEPHRINE, FREE 181 pg/mL H <=148 This test was developed and its analytical performance characteristics have been determined by [facility] [place] [place]. It has not been cleared or approved by the U.S. Food and Drug Administration. This assay has been validated pursuant to the CLIA regulations and is used for clinical purposes. TOTAL, FREE (MN+NMN) 212 pg/mL H <=205 For additional information, please refer to http://education.[employer]/faq/MetFractFree (This link is being provided for informational/educatio [...] analytical performance characteristics have been determined by [facility] [place] [place]. It has not been cleared or approved by the U.S. Food and Drug Administration. This assay has been validated pursuant to the CLIA regulations and is used for clinical purposes. Test Performed at: [facility] [employer] [address] [place], [place] LYDIA ALDANA MD,PHD QU-PLASMA RENIN ACTIVITY, LC/MS/MS 75517 [id number] 11:18AM Keyonna Armstrong Test Name Result Flag Reference PLASMA RENIN ACTIVITY, LC/MS/MS 26.99 ng/mL/h H 0.25-5.82 This test was developed and its analytical performance characteristics have been determined by [facility]. It has not been cleared or approved by FDA. This assay has been validated pursuant to the CLIA regulations and is used for clinical purposes. Test Performed at: [facility] [address] [place] [address] SONYA BLANK MD,PHD,EKATERINA QU-ALDOSTERONE, LC/MS/MS [id number] 17Oct2017 11:18AM Keyonna Armstrong Test Name Result Flag Reference ALDOSTERONE, LC/MS/MS 15 ng/dL Adult Reference Ranges for Aldosterone, LC/MS/MS: Upright 8:00-10:00 am < or = 28 ng/dL Upright 4:00-6:00 pm < or = 21 ng/dL Supine 8:00-10:00 am 3-16 ng/dL This test was developed and its analytical performance characteristics have been determined by [facility]. It has not been cleared or approved by FDA. This assay has been validated pursuant to the CLIA regulations and is used for clinical purposes. Test Performed at: [facility] [address] [place] [address] SONYA BLANK MD,PHD,EKATERINA QU-CBC ( INCLUDES DIFF/PLT ) [id number] 17Oct2017 11:18AM Keyonna Armstrong Test Name Result Flag Reference WHITE BLOOD CELL COUNT 12.1 H 3.8-10.8 UNITS: Thousand/uL RED BLOOD CELL COUNT 4.72 Million/uL 3.80-5.10 HEMOGLOBIN 13.8 g/dL 11.7-15.5 HEMATOCRIT 42.3 % 35.0-45.0 MCV 89.6 fL 80.0-100.0 MCH 29.2 pg 27.0-33.0 MCHC 32.6 g/dL 32.0-36.0 RDW 13.6 % 11.0-15.0 PLATELET COUNT 297 140-400 UNITS: Thousand/uL MPV 10.2 fL 7.5-12.5 ABSOLUTE NEUTROPHILS 7393 cells/uL 6755-6261 ABSOLUTE LYMPHOCYTES 3485 cells/uL 850-3900 ABSOLUTE MONOCYTES 1053 cells/uL H 200-950 ABSOLUTE EOSINOPHILS 121 cells/uL 15-500 ABSOLUTE BASOPHILS 48 cells/uL 0-200 NEUTROPHILS 61.1 % LYMPHOCYTES 28.8 % MONOCYTES 8.7 % EOSINOPHILS 1.0 % BASOPHILS 0.4 % Test Performed at: [facility] [place] [address] [place] [address] GENE VILLAR DO,MPH QU-TSH W/REFLEX TO FT4 [id number] 17Oct2017 11:18AM Keyonna Armstrong Test Name Result Flag Reference TSH W/REFLEX TO FT4 1.15 mIU/L Reference Range > or = 20 Years 0.40-4.50 Ranges First trimester 0.26-2.66 Second trimester 0.55-2.73 Third trimester 0.43-2.91 REPORT COMMENT: COLLECTION KIT GIVEN TO PATIENT. PATIENT ADVISED TO RETURN. Test Performed at: [facility] [address] [place] [address] GENE VILLAR DO,MPH documented in this encounter Plan of Treatment Upcoming Encounters Date Type Department Care Team (Late st Contact Info) Description 07/25/2024 10:00 AM SOLAR PANEL INSTALLER Office Visit [facility] Medical Group Family & Internal Medicine - [address] [address] Keyonna Armstrong APNP [address] [place] [address] 07/31/2024 10:15 AM SOLAR PANEL INSTALLER Office Visit [facility], [facility] [address] [place] [address] Pepe Mitchell MD [facility]. [facility] [address] [place] [address] documented as of this encounter Visit Diagnoses Not on filedocumented in this encounter
--- OUTSIDE RECORDS SUMMARY | 2024-07-10 23:01 | XMS_ITS | Encounter Summary ---
Author Organization [facility] Address [address] [place] [address]. [place], [place] [address] [place] [address] Care Team Providers Care Geomorphologist Name Role Phone Keyonna Armstrong Primary Care Provider +1 [phone] Reason for Visit * Reason Onset Date Comments Medication 09/26/2018 Encounter Details Date Type Department Care Team (Late st Contact Info) Description 09/26/2018 Telephone [facility] Medical Group Family & Internal Medicine [facility] [address] [place] [address] Keyonna Armstrong APNP [address] [place] [address] Medication Social History Tobacco Use [...] CDT Gender Identity Female 07/17/2022 10:27 AM VEGETABLE FARMER Sexual Orientation Straight 07/17/2022 10 :27 AM VEGETABLE FARMER documented as of this encounter Progress Notes * Nenita Young MA - 09/26/2018 2:11 PM CST Patient would like same bcp she has had in the past, [facility] TABLE FARMER * Precious Oviedo - 09/26/2018 8:58 AM CST Pt calling, asking for Nenita to call her later today about her control pills TABLE FARMER documented in this encounter Plan of Treatment Upcoming Encounters Date Type Department Care Team (Late st Contact Info) Description 07/25/2024 10:00 AM VEGETABLE FARMER Office Visit [facility] Medical Group Family & Internal Medicine - [place] [address] [place] [address] Keyonna Armstrong APNP [address] [place] [address] 07/31/2024 10:15 AM VEGETABLE FARMER Office Visit [facility] THREE [facility], [facility] [address] [place] [address] Pepe Mitchell MD Three [facility]. [facility] [address] [place], [place] [address] documented as of this encounter Visit Diagnoses Not on filedocumented in this encounter Care Teams Geomorphologist Relationship Specialty Start Date End Date Keyonna Armstrong APNP [address] [place] [address] PCP - General NURSE PRACTITIONER 05/06/18 documented as of this encounter
--- OUTSIDE RECORDS SUMMARY | 2024-07-10 23:01 | XMS_ITS | Encounter Summary ---
Author Organization [facility] Address [address] [place] [address]. [place], [place] [address] [place] [address] Care Team Providers Care Aircraft Sales Representative Name Role Phone Unavailable Primary Care Provider Unavailabl e Encounter Details Date Type Department Care Team (Latest Contact Info) Description 11/19/2017 Abstract [facility] Medical Group Social History Tobacco Use Types Packs/Day Years Used Date Smoking Tobacco: Never Assessed Comments Unknown Sex and Gender Information Value Date Recorded Sex Assigned at Not on file Legal Sex Female 5:47 PM CDT Gender Identity Female 07/17/2022 10:27 AM REPLENISHMENT MERCHANDISING ASSOCIATE Sexual Orientation Straight 07/17/2022 10 :27 AM REPLENISHMENT MERCHANDISING ASSOCIATE documented as of this encounter Plan of Treatment Upcoming Encounters Date Type Department Care Team (Late st Contact Info) Description 07/25/2024 10:00 AM REPLENISHMENT MERCHANDISING ASSOCIATE Office Visit [facility] Medical Group Family & Internal Medicine - [place] [address] [place] [address] Keyonna Armstrong APNP [address] [place] [address] 07/31/2024 10:15 AM REPLENISHMENT MERCHANDISING ASSOCIATE Office Visit [place] [facility] THREE [facility], [facility] [address] [place], [place] [phone] Pepe Mitchell MD [facility]. [facility] [address] [place], [place] [id number] documented as of this encounter Visit Diagnoses Not on filedocumented in this encounter
--- OUTSIDE RECORDS SUMMARY | 2024-07-10 23:01 | XMS_ITS | Encounter Summary ---
Author Organization [facility] Address [address] [place] [address]. [place], [place] [address] [place] [address] Care Team Providers Care Radiology Equipment Servicer Name Role Phone Keyonna Armstrong Primary Care Provider +1 [phone] Encounter Details Date Type Department Care Team (Latest Contact Info) Description 09/05/2018 Scan HEALTH INFO [facility] Scanned, Documents Social [...] CDT Gender Identity Female 07/17/2022 10:27 AM FACING CUTTING MACHINE OPERATOR Sexual Orientation Straight 07/17/2022 10 :27 AM FACING CUTTING MACHINE OPERATOR documented as of this encounter Plan of Treatment Upcoming Encounters Date Type Department Care Team (Late st Contact Info) Description 07/25/2024 10:00 AM FACING CUTTING MACHINE OPERATOR Office Visit [facility] Medical Group Family & Internal Medicine - [place] [address] [place] [address] Keyonna Armstrong APNP [address] [place] [address] 07/31/2024 10:15 AM FACING CUTTING MACHINE OPERATOR [facility] [address] [address] Pepe Mitchell MD Three [facility]. [facility] [address] [place] [address] documented as of this encounter Visit Diagnoses Not on filedocumented in this encounter Care Teams Radiology Equipment Servicer Relationship Specialty Start Date End Date Keyonna Armstrong APNP [address] [place] [address] PCP - General NURSE PRACTITIONER 05/06/18 documented as of this encounter
--- OUTSIDE RECORDS SUMMARY | 2024-07-10 23:01 | XMS_ITS | Encounter Summary ---
Author Organization [facility] Address [address] [place] [address]. [place], [place] [address] [place] [id number] Care Team Providers Care Systems Admin Name Role Phone Unavailable Primary Care Provider Unavailabl e Encounter Details Date Type Department Care Team (Late st Contact Info) Description 12/31/2017 Abstract [facility] Family & Internal Medicine [id number] [place] [address] Keyonna Armstrong APNP [address] [place] [address] Social History Tobacco Use Types Packs/Day Years Used Date Smoking Tobacco: Never Assessed Comments Unknown Sex and Gender Information Value Date Recorded Sex Assigned at Not on file Legal Sex Female 5:47 PM CDT Gender Identity Female 07/17/2022 10:27 AM 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 MANAGER Sexual Orientation Straight 07/17/2022 10 :27 AM LIBRARY MANAGER documented as of this encounter Last Filed Vital Signs Vital Sign Reading Time Taken Comments Blood Pressure 136/92 12/31/2017 10:02 AM CDT Pulse 110 12/31/2017 10:02 AM CDT Temperature - - Respiratory Rate - - Oxygen Saturation - - Inhaled Oxygen Concentration - - Weight 134 kg (295 lb 6.1 oz) 12/31/2017 10:02 A M CDT Height 163.8 cm (5' 4.5) 12/31/2017 10:02 AM CD T Body Mass Index 49.92 12/31/2017 10:02 AM CDT documented in this encounter Progress Notes * YOBANI Cruz - 12/31/2017 10:00 AM CDT Reason For Visit Chronic Recheck Visit Chief Complaint Patient is here for follow up on depression and anxiety. History of Present Illness HPI Free Text: Pt here today for follow of some of her chronic health conditions. 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 She states she was placed on OCP several years ago as she has an ovarian cyst and this seemed to help. She denies any complications of the OCP. Anxiety Disorder (Follow-Up): The patient is being seen for follow-up of anxiety. The patient reports doing well. Comorbid Illnesses: depression. She has had no significant interval events. Interval symptoms: stable anxiety, stable difficulty concentrating, denies restlessness, denies panic attacks, denies sleep disruption and stable depression. Associated symptoms: no grandiosity, no racing thoughts, no periods of euphoria, no hallucinations and no suicidal ideation. Medication(s): selective serotonin reuptake inhibitors and benzodiazepines. Medications: the patient is adherent to her medication regimen, but she denies medication side effects. Disease management: the patient is doing well with her goals. Depression (Follow-Up): The patient states her depression has been stable since the last visit. Comorbid Illnesses: anxiety. She has had no significant interval events. Interval Symptoms: stable depression, stable depressed mood, stable loss of interest or pleasure inactivities, stable insomnia, denies excessive sleepiness, denies inability to perform normal activities, denies loss of energy, denies feelings of worthlessness, denies feelings of guilt, denies trouble concentrating, stable anxiety and denies sexual dysfunction. Associated symptoms include:. No associated symptoms are reported.. Social Support: the patient has good social support. Medications: Medication(s): a SNRI. Hypertension (Follow-Up): The patient presents for follow-up of primary hypertension. The patient states she has been doing well with her blood pressure control since the last visit. She has no comorbid illnesses. She has no significant interval events. Symptoms: The patient is currently asymptomatic. Associated symptoms include no headache, no focal neurologic deficits and no memory loss. Home monitoring: The patient checks her blood pressure sporadically.. Blood pressure control has been good. Medications: the patient is adherent with her medication regimen. She denies medication side effects.. Medication(s): a diuretic and an DAVID inhibitor. Disease Management: the patient is doing well with her blood pressure goals.. Insomnia (Brief): The patient is being seen for a routine clinic follow-up of insomnia. Symptoms: difficulty falling asleep and difficulty staying asleep, but no unrefreshing sleep, no parasomnia, nodaytime sleepiness, no anxiety upon awakening and no sleeping at inappropriate times. Associated symptoms: depression, but no irritability, no difficulty concentrating, no snoring, no chronic pain, no alcohol abuse, no drug abuse, no restless legs, no periodic limb movements during sleep, no nocturnal leg cramps, no nightmares, no night terrors and no sleepwalking. Review of Systems Constitutional: Normal. Cardiovascular: Normal. Respiratory: Normal. Gastrointestinal: Normal. Genitourinary: Normal. Neurological: Normal. Psychiatric: anxiety and depression, but no suicidal ideation. Active Problems 1. Adrenal adenoma (227.0) (D35.00) [...] No alcohol use ?? Occasional caffeine consumption Current Meds 1. Enpresse-28 Oral Tablet; TAKE 1 TABLET BY MOUTH EVERY DAY; Therapy: 30May2012 to (Evaluate:26Bin6854) Requested for: 38Ovy7708; Last Rx:[id number] Ordered 2. HydroCHLOROthiazide 25 MG Oral Tablet; TAKE ONE TABLET BY MOUTH EVERY DAY; Therapy: 20May2012 to (Evaluate:35Pdh0978) Requested for: 95Sgn5022; Last Rx:[id number] Ordered 3. Lisinopril 20 MG Oral Tablet; TAKE 1 TABLET BY MOUTH EVERY DAY; Therapy: 28Sep2017 to (Evaluate:27Apr2018) Requested for: 19Owj0576; Last Rx:[id number] Ordered 4. LORazepam 0.5 MG Oral Tablet; TAKE 1 TABLET BY MOUTH 3 TIMES A DAY. Patient needs appointment for further refills; Therapy: 14Gkw3780 to (Evaluate:30Dec2017) Requested for: 33Rxc7567; Last Rx:[id number] Ordered 5. MetFORMIN HCl - 500 MG Oral Tablet; TAKE 1 TABLET BY MOUTH EVERY MORNING AND THEN TAKE 2 TABLETS AT BEDTIME; Therapy: 24Dec2011 to (Evaluate:74Rcl1245) Requested for: 87Vgu0791; Last Rx:[id number] Ordered 6. Methocarbamol 750 MG Oral Tablet; TAKE 1 TO 2 TABLETS 3 TIMES DAILY NEEDED FOR MUSCLE SPASM; Therapy: 11Aug2014 to (Evaluate:88Vaa0895) Requested for: 56Pen3472; Last Rx:[id number] Ordered 7. Metoprolol Succinate ER 100 MG Oral Tablet Extended Release 24 Hour; TAKE 1 TABLET BY MOUTH EVERY DAY; Therapy: 08May2017 to (Evaluate:93Ppx8053) Requested for: 18Oct2017; Last Rx:18Oct2017 Ordered 8. Ondansetron 4 MG Oral Tablet Disintegrating; DISSOLVE 1-2 TABLETS ON TONGUE EVERY 8 HOURS NEEDED FOR NAUSEA ..PATIENT NEEDS APPOINTMENT; Therapy: 24Ulr5531 to (Evaluate:56Unq5903) Requested for: 77Kmb2053; Last Rx:[id number] Ordered 9. Pantoprazole Sodium 40 MG Oral Tablet Delayed Release; TAKE 1 TABLET EVERY DAY; Therapy: 08Jun2012 to (Evaluate:12Jun2018) Requested for: 11Pvu8831; Last Rx:[id number] Ordered 10. Polyethylene Glycol 3350 Oral Powder; MIX 1 CAPFUL (17GM) IN 8 OUNCES OF WATER, JUICE, OR TEA AND DRINK DAILY; Therapy: 76Xny4115 to (Evaluate:56Ccs6934) Requested for: 27Apr2017; Last Rx:[id number] Ordered 11. Venlafaxine HCl ER 75 MG Oral Capsule Extended Release 24 Hour; TAKE ONE CAPSULE BY MOUTH EVERY MORNING AND TAKE 2 CAPSULES EVERY EVENING; Therapy: 13May2012 to (Evaluate:84Yru8375) Requested for: 09Xvs2373; Last Rx:[id number] Ordered 12. Zolpidem Tartrate 10 MG Oral Tablet; TAKE 1 TABLET BY MOUTH AT BEDTIME NEEDED; Therapy: 15Ems9946 to (Evaluate:12Jan2018) Requested for: 57Som2259; Last Rx:[id number] Ordered Allergies 1. No Known Drug Allergies Immunizations Influenza --- Series1: 19-Jun-2012; Series2: 25-Apr-2016 Tdap --- Series1: 25-Apr-2016 Vitals Recorded: 31Dec2017 10:02AM Temperature 98.2 F Heart Rate 110 Respiration 18 Systolic 136 Diastolic 92 O2 Saturation 97 Height 5 ft 4.5 in Weight 295 lb 6 oz BMI Calculated 49.92 BSA Calculated 2.32 Physical Exam Constitutional General appearance: No acute distress, well appearing and well nourished. Pulmonary Respiratory effort: No increased work of [...] 15 minutes was spent counseling. Assessment 1. Anxiety (300.00) (F41.9) 2. Depression (311) (F32.9) 3. Hypertension (401.9) (I10) 4. Chronic insomnia (780.52) (F51.04) 5. Right ovarian cyst (620.2) (N83.201) Plan Anxiety 1. LORazepam 0.5 MG Oral Tablet; TAKE 1 TABLET BY MOUTH 3 TIMES A DAY. Patient needs appointment for further refills Rx By: Keyonna Armstrong; Dispense: 30 Days ; #:90 Tablet; Refill: 1; For: Anxiety; TEX = N; Print Rx;Msg to Pharmacy: [phone] Called into [facility];LM-KKR RN Called into [facility];LM-KKR RN Called into [facility];LM-KKR RN [facility] [place] Called into [facility] [place] - LM /tjt Called into [facility] [place] - LM /tjt Called into [facility] [place] - LM /tjt Called into [facility] [place] - LM /tjt Called into [facility] [place] - LM /tjt Called into [facility] [place] - LM /tjt Called into [facility] [place] - LM /tjt Called into [facility] [place] - LM /tjt Called into [facility] [place] - LM - gets #90 every 30 days /tjt Called into [facility] [place] - LM /tjt Called into [facility] [place] - LM /tjt Called into [facility] [place] - LM /tjt Called in to [facility] [place] - LM /tjt Called in to [facility] [place] - LM /tjt 2. Avoid alcoholic beverages.; Status:Complete; Done: 01Jan2018 Ordered; For:Anxiety; Ordered By:Keyonna Armstrong; 3. Call if: New symptoms occur.; Status:Complete; Done: 01Jan2018 Ordered; For:Anxiety; Ordered By:Keyonna Armstrong; 4. Avoid foods and beverages that contain caffeine.; Status:Complete; Done: 01Jan2018 Ordered; For:Anxiety; Ordered By:Keyonna Armstrong; 5. Call if: The symptoms seem worse.; Status:Complete; Done: 01Jan2018 Ordered; For:Anxiety; Ordered By:Keyonna Armstrong; 6. Be sure to get at least 8 hours of sleep every night.; Status:Complete; Done: 01Jan2018 Ordered; For:Anxiety; Ordered By:Keyonna Armstrong; 7. Call if: You are having difficulty sleeping (insomnia).; Status:Complete; Done: 01Jan2018 Ordered; For:Anxiety; Ordered By:Keyonna Armstrong; 8. Continue with our present treatment plan.; Status:Complete; Done: 01Jan2018 Ordered; For:Anxiety; Ordered By:Keyonna Armstrong; 9. Call if: Your feelings of anxiety are not getting better in 2 weeks.; Status:Complete; Done: 01Jan2018 Ordered; For:Anxiety; Ordered By:Keyonna Armstrong; 10. Decreasing the stress in your life may help your condition improve.; Status:Complete; Done: 01Jan2018 Ordered; For:Anxiety; Ordered By:Keyonna Armstrong; 11. Call if: Your feelings of being frightened, nervous, anxious, and out of control are happening more often.; Status:Complete; Done: 01Jan2018 Ordered; For:Anxiety; Ordered By:Keyonna Armstrong; 12. Call 911 if: You are considering suicide.; Status:Complete; Done: 01Jan2018 Ordered; For:Anxiety; Ordered By:Keyonna Amrstrong; 13. Call 911 if: You are thinking about harming yourself or someone else.; Status:Complete; Done: 95Mlp1784 Ordered; For:Anxiety; Ordered By:Keyonna Armstrong; 14. Seek Immediate Medical Attention if: ; Status:Complete; Done: [id number] Ordered; For:Anxiety; Ordered By:Keyonna Armstrong; 15. Seek Immediate Medical Attention if: You feel your heart is beating very fast or skipping beats.; Status:Complete; Done: 01Jan2018 Ordered; For:Anxiety; Ordered By:Keyonna Armstrong; Chronic insomnia 16. Avoid foods and beverages that contain caffeine.; Status:Complete; Done: 01Jan2018 Ordered; For:Chronic insomnia; Ordered By:Keyonna Armstrong; 17. Call if: The symptoms seem worse.; Status:Complete; Done: 01Jan2018 Ordered; For:Chronic insomnia; Ordered By:Keyonna Armstrong; 18. Avoid [id number] cold remedies unless recommended by us.; Status:Complete; Done: 01Jan2018 Ordered; For:Chronic insomnia; Ordered By:Keyonna Armstrong; 19. Call if: You have feelings of extreme sadness and feelings of hopelessness.; Status:Complete; Done: 01Jan2018 Ordered; For:Chronic insomnia; Ordered By:Keyonna Armstrong; 20. Decreasing the stress in your life may help your condition improve.; Status:Complete; Done: 01Jan2018 Ordered; For:Chronic insomnia; Ordered By:Keyonna Armstrong; 21. Call if: You have symptoms of anxiety.; Status:Complete; Done: 01Jan2018 Ordered; For:Chronic insomnia; Ordered By:Keyonna Armstrong; 22. Do not eat anything for at least 2 hours before going to bed.; Status:Complete; Done: 01Jan2018 Ordered; For:Chronic insomnia; Ordered By:Keyonna Armstrong; 23. Call if: You still are unable to sleep through the night after 2 weeks.; Status:Complete; Done: 01Jan2018 Ordered; For:Chronic insomnia; Ordered By:Keyonna Armstrong; 24. Limit your use of alcohol to 2 drinks or cans of beer a day.; Status:Complete; Done: 01Jan2018 Ordered; For:Chronic insomnia; Ordered By:Keyonna Armstrong; Hypertension 25. We encourage you to begin to make lifestyle changes to help control your blood pressure. These may include losing weight, increasing your activity level, limiting salt in your diet, decreasing alcohol intake, and eating a diet low in fat and rich in fruits and vegetables.; Status:Complete; Done: 01Jan2018 Ordered; For:Hypertension; Ordered By:Keyonna Armstrong; 26. Call if: You become dizzy or lightheaded, especially when you stand up after sitting for a while.; Status:Complete; Done: 01Jan2018 Ordered; For:Hypertension; Ordered By:Keyonna Armstrong; 27. We want to put you on the DASH diet for 2000 calories.; Status:Complete; Done: 01Jan2018 Ordered; For:Hypertension; Ordered By:Keyonna Armstrong; 28. Call if: You develop double vision (see two of everything).; Status:Complete; Done: 01Jan2018 Ordered; For:Hypertension; Ordered By:Keyonna Armstrong; 29. Call if: Your blood pressure is frequently higher than 140/90.; Status:Complete; Done: 01Jan2018 Ordered; For:Hypertension; Ordered By:Keyonna Armstrong; 30. Call 911 if: You experience a new kind of chest pain (angina) or pressure.; Status:Complete; Done: 01Jan2018 Ordered; For:Hypertension; Ordered By:Keyonna Armstrong; 31. Call 911 if: You have any symptoms of a stroke.; Status:Complete; Done: 01Jan2018 Ordered; For:Hypertension; Ordered By:Keyonna Armstrong; 32. Seek Immediate Medical Attention if: You have a severe headache that will not go away.; Status:Complete; Done: 01Jan2018 Ordered; For:Hypertension; Ordered By:Keyonna Armstrong; 33. Seek Immediate Medical Attention if: Your blood pressure is greater than 250/120 for 2 consecutive readings.; Status:Complete; Done: 01Jan2018 Ordered; For:Hypertension; Ordered By:Keyonna Armstrong; Anxiety/depression - Stable. Continue meds. HTN - Stable. Continue meds. Insomnia - STable. Continue meds. Ovarian cyst - After discussion with pt regarding residential use of OCP,risks and benefits, she is in agreement to follow up with HEDIS REVIEW NURSE to discuss other tx options. Routine fasting labs ordered today. More plan after results. Signatures Electronically signed by : Keyonna Armstrong APN; Jan 02 2018 2:21PM LIBRARY MANAGER (Author) documented in this encounter Plan of Treatment Upcoming Encounters Date Type Department Care Team (Late st Contact Info) Description 07/25/2024 10:00 AM LIBRARY MANAGER Office Visit [facility] Family & Internal Medicine - [place] [address] [place] [address] Keyonna Armstrong APNP [address] [place] [address] 07/31/2024 10:15 AM LIBRARY MANAGER Office Visit [facility] [address] [place], [place] [address] Pepe Mitchell MD [facility] [address] [place], [place] [address] documented as of this encounter Visit Diagnoses Not on filedocumented in this encounter
--- OUTSIDE RECORDS SUMMARY | 2024-07-10 23:01 | XMS_ITS | Encounter Summary ---
Author Organization [facility] Address [address] [place] [address]. [place], [place] [address] [place] [address] Care Team Providers Care Cupola Melter Helper Name Role Phone Keyonna Armstrong Primary Care Provider [phone] Encounter Details Date Type Department Care Team (Late st Contact Info) Description 07/11/2018 Orders Only [facility] Family & Internal Medicine [facility] [address] [place] [address] Keyonna Armstrong APNP [address] [place] [address] Social History Tobacco Use Types Packs/Day Years [...] CDT Gender Identity Female 07/17/2022 10:27 AM EMBROIDERY SUPERVISOR Sexual Orientation Straight 07/17/2022 10 :27 AM EMBROIDERY SUPERVISOR documented as of this encounter Progress Notes * YOBANI Cruz - 07/19/2018 11:32 AM CST With further investigation, it looks like these labs were ordered from a provider from [facility] and justCC'd to me. Make sure pt has follow up with [facility] provider to discuss these labs. OIDERY SUPERVISOR documented in this encounter Plan of Treatment Upcoming Encounters Date Type Department Care Team (Late st Contact Info) Description 07/25/2024 10:00 AM EMBROIDERY SUPERVISOR Office Visit [facility] Family & Internal Medicine - [place] [address] [place] [address] Keyonna Armstrong APNP [address] [place] [address] 07/31/2024 10:15 AM EMBROIDERY SUPERVISOR Office Visit [facility] [address] [place], [place] [phone] Pepe Mitchell MD [facility]. [facility] [address] [place], [place] [phone] documented as of this encounter Procedures Procedure Name Priority Date/Time Associated Diagnosis Comments VITAMIN D, 25 OH TOTAL Routine 8 8:19 AM EMBROIDERY SUPERVISOR VITAMIN B1 WHOLE BLOOD Routine 8 8:19 AM EMBROIDERY SUPERVISOR PTH - INTACT Routine 07/11/2018 8:19 AM EMBROIDERY SUPERVISOR HEMOGLOBIN, GLYCOSYLATED Routine 07/11/2018 8:19 AM EMBROIDERY SUPERVISOR IRON SAT PANEL (IRON,IBC,%SAT) Routine 07/11/2018 8:19 AM EMBROIDERY SUPERVISOR VITAMIN B-12 Routine 07/11/2018 8:19 AM EMBROIDERY SUPERVISOR COMPREHENSIVE METABOLIC PANEL Routine 07/11/2018 8:19 AM EMBROIDERY SUPERVISOR LIPID PANEL Routine 07/11/2018 8:19 AM EMBROIDERY SUPERVISOR FOLIC ACID SERUM Routine 07/11/2018 8:19 AM EMBROIDERY SUPERVISOR CBC W/DIFF AUTOMATED Routine 07/11/2018 8:19 AM EMBROIDERY SUPERVISOR AMYLASE Routine 07/11/2018 8:19 AM EMBROIDERY SUPERVISOR LIPASE Routine 07/11/2018 8:19 AM EMBROIDERY SUPERVISOR FERRITIN Routine 07/11/2018 8:19 AM EMBROIDERY SUPERVISOR COPPER Routine 07/11/2018 8:19 AM EMBROIDERY SUPERVISOR documented in this encounter Results * (ABNORMAL) COPPER (07/11/2018 8:19 AM EMBROIDERY SUPERVISOR) COPPER S/P/B 185(H) 70 - 175 mcg/dL [facility] Comment: This test was developed and its analytical performance characteristics have been determined by [facility]. It has not been cleared or approved by the US Food and Drug Administration. This assay has been validated pursuant to the CLIA regulations and is used for clinical purposes. 07/11/2018 8:19 AM EMBROIDERY SUPERVISOR 07/11/2018 8:20 AM EMBROIDERY SUPERVISOR Narrative [facility] - 07/11/2018 8:19 AM EMBROIDERY SUPERVISOR FASTING:YES FASTING: YES Resulting Agency Comment Performing Organization Information: ?Site ID: [id number] ?Name: [facility] ?Address: [address] [place] [address] ?Director: Darrell Morris M.D., Ph.D us Keyonna [facility] Edited Resu lt - Final [facility] [address] [place] [address], * (ABNORMAL) VITAMIN B1 WHOLE BLOOD (07/11/2018 8:19 AM EMBROIDERY SUPERVISOR) VITAMIN B1 S/P/B 192(H) 78 - 185 nmol/L [facility] Comment: Vitamin supplementation within 24 hours prior to blood draw may affect the accuracy of results. This test was developed and its analytical performance characteristics have been determined by [email or web address]. It has not been cleared or approved by FDA. This assay has been validated pursuant to the CLIA regulations and is used for clinical purposes. 07/11/2018 8:19 AM EMBROIDERY SUPERVISOR 07/11/2018 8:20 AM EMBROIDERY SUPERVISOR Narrative [facility] - 07/11/2018 8:19 AM EMBROIDERY SUPERVISOR FASTING:YES FASTING: YES Resulting Agency Comment Performing Organization Information: ?Site ID: [id number] ?Name: [facility] ?Address: [address] [place] [address] ?Director: Darrell Morris M.D., Ph.D [facility] Edited [facility] Performing Organization Address [facility] Phone Number [facility] [address] [place] [address], * (ABNORMAL) LIPASE (07/11/2018 8:19 AM EMBROIDERY SUPERVISOR) LIPASE 69(H) 7 - 60 U/L [facility] 07/11/2018 8:19 AM EMBROIDERY SUPERVISOR 07/11/2018 8:20 AM EMBROIDERY SUPERVISOR Narrative [facility] - 07/11/2018 8:19 AM EMBROIDERY SUPERVISOR FASTING:YES FASTING: YES Resulting Agency Comment Performing Organization Information: ?Site ID: [place] ?Name: [email or web address] ?Address: [address] [address] ?Director: Servando Cervantes D.O., MPH [facility] Edited [facility] Performing Organization Address [facility] de Phone Number [facility] * HEMOGLOBIN, GLYCOSYLATED (07/11/2018 8:19 AM EMBROIDERY SUPERVISOR) HGB A1C 5.1 <5.7 % of total Hgb [facility] Comment: For the purpose of screening for the presence of diabetes: <5.7% ? Consistent with the absence of diabetes 5.7-6.4% ?Consistent with increased risk for diabetes ?(prediabetes) > or =6.5% ??Consistent with diabetes This assay result is consistent with a decreased risk of diabetes. Currently, no consensus exists regarding use of hemoglobin A1c for diagnosis of diabetes in children. According to [place] Diabetes Association (ADA) guidelines, hemoglobin A1c <7.0% represents optimal control in non- diabetic patients. Different metrics may apply to specific patient populations. Standards of Medical Care in Diabetes(ADA). ?? 07/11/2018 8:19 AM EMBROIDERY SUPERVISOR 07/11/2018 8:20 AM EMBROIDERY SUPERVISOR Narrative [facility] - 07/11/2018 8:19 AM EMBROIDERY SUPERVISOR FASTING:YES FASTING: YES Resulting Agency Comment Performing Organization Information: ?Site ID: [place] ?Name: [facility] ?Address: [address] [place] [address] ?Director: Servando Cervantes D.O., MPH [facility] Edited Resu lt - Final [facility] * AMYLASE (07/11/2018 8:19 AM EMBROIDERY SUPERVISOR) AMYLASE S/P/B 84 21 - 101 U/L [facility] 07/11/2018 8:19 AM EMBROIDERY SUPERVISOR 07/11/2018 8:20 AM EMBROIDERY SUPERVISOR Narrative [facility] - 07/11/2018 8:19 AM EMBROIDERY SUPERVISOR FASTING:YES FASTING: YES Resulting Agency Comment Performing Organization Information: ?Site ID: [place] ?Name: [facility] ?Address: [address] [address] ?Director: Servando Cervantes D.O., MPH [facility] Edited [facility] - Final Performing Organization Address City/[facility]/ZIP Co de Phone Number [facility] * VITAMIN D, 25 OH (07/11/2018 8:19 AM EMBROIDERY SUPERVISOR) VITAMIN D 25 HYDROXY TOTAL S/P/B 41 30 - 100 ng/mL [facility] Comment: Vitamin D Status ? 25-OH Vitamin D: Deficiency: ?<20 ng/mL Insufficiency: ? 20 - 29 ng/mL Optimal: ? > or = 30 ng/mL For 25-OH Vitamin D testing on patients on D2-supplementation and patients for whom quantitation of D2 and D3 fractions is required, the QuestAssureD(TM) 25-OH VIT D, (D2,D3), LC/MS/MS is recommended: order code 75636 (patients >2yrs). For more information on this test, go to: http://education.Mobilio/faq/KWI427 (This link is being provided for informational/educational purposes only.) 07/11/2018 8:19 AM EMBROIDERY SUPERVISOR 07/11/2018 8:20 AM EMBROIDERY SUPERVISOR Narrative [facility] - 07/11/2018 8:19 AM EMBROIDERY SUPERVISOR FASTING:YES FASTING: YES Resulting Agency Comment Performing Organization Information: ?Site ID: [place] ?Name: [facility] ?Address: [address] [address] ?Director: Servando Cervantes D.O., MPH Keyonna [facility] Edited Resu lt - Final Performing Organization Address City/[facility]/ZIP Co de Phone Number [facility] * PTH - INTACT (07/11/2018 8:19 AM EMBROIDERY SUPERVISOR) PTH INTACT 55 14 - 64 pg/mL [facility] Comment: Interpretive Guide ?Intact PTH ? Calcium ? ------- Normal Parathyroid ?Normal ? Normal Hypoparathyroidism ?Low or Low Normal ?Low Hyperparathyroidism ?? Primary ?Normal or High ? High ?? Secondary ?High ? Normal or Low ?? Tertiary ? High ? High Non-Parathyroid ?? Hypercalcemia ?Low or Low Normal ?High 07/11/2018 8:19 AM EMBROIDERY SUPERVISOR 07/11/2018 8:20 AM EMBROIDERY SUPERVISOR Narrative [facility] - 07/11/2018 8:19 AM EMBROIDERY SUPERVISOR FASTING:YES FASTING: YES Resulting Agency Comment Performing Organization Information: ?Site ID: [place] ?Name: [email or web address] ?Address: [address] [place] [address] ?Director: Servando Cervantes D.O., MPH [facility] Edited Resu lt - Final [facility] * VITAMIN B-12 (07/11/2018 8:19 AM EMBROIDERY SUPERVISOR) VITAMIN B12 S/P/B 350 200 - 1,100 pg/mL [facility] Comment: Please Note: Although the reference range for vitamin B12 is 200-1100 pg/mL, it has been reported that between 5 and 10% of patients with values between 200 and 400 pg/mL may experience neuropsychiatric and hematologic abnormalities due to occult B12 deficiency; less than 1% of patients with values above 400 pg/mL will have symptoms. 07/11/2018 8:19 AM EMBROIDERY SUPERVISOR 07/11/2018 8:20 AM EMBROIDERY SUPERVISOR Narrative [facility] - 07/11/2018 8:19 AM EMBROIDERY SUPERVISOR FASTING:YES FASTING: YES Resulting Agency Comment Performing Organization Information: ?Site ID: [place] ?Name: [facility] ?Address: [address] [place] [address] ?Director: Servando Cervantes D.O., MPH us Keyonna [facility] Edited Resu lt - Final [facility] * FOLIC ACID SERUM (07/11/2018 8:19 AM EMBROIDERY SUPERVISOR) FOLATE 22.5 ng/mL [facility] Comment: ? Reference Range ? Low: ? <3.4 ? Borderline: ?3.4-5.4 ? Normal: ?>5.4 07/11/2018 8:19 AM EMBROIDERY SUPERVISOR 07/11/2018 8:20 AM EMBROIDERY SUPERVISOR Narrative [facility] - 07/11/2018 8:19 AM EMBROIDERY SUPERVISOR FASTING:YES FASTING: YES Resulting Agency Comment Performing Organization Information: ?Site ID: [place] ?Name: [facility] ?Address: [facility] [place] [address] ?Director: Servando Cervantes D.O. MPH [facility] Edited [facility] - Final Performing Organization Address [facility] de Phone Number [facility] * FERRITIN (07/11/2018 8:19 AM EMBROIDERY SUPERVISOR) FERRITIN 10 10 - 232 ng/mL [facility] 07/11/2018 8:19 AM EMBROIDERY SUPERVISOR 07/11/2018 8:20 AM EMBROIDERY SUPERVISOR Narrative [facility] - 07/11/2018 8:19 AM EMBROIDERY SUPERVISOR FASTING:YES FASTING: YES Resulting Agency Comment Performing Organization Information: ?Site ID: [place] ?Name: [facility] ?Address: [facility] [place] [address] ?Director: Servando Cervantes D.O., MPH Keyonna [facility] Edited [facility] Final Performing Organization Address [facility] Phone Number [facility] * CBC W/DIFF AUTOMATED (07/11/2018 8:19 AM EMBROIDERY SUPERVISOR) WBC 10.0 3.8 - 10.8 Thousand/u L [facility] RBC 4.41 3.80 - 5.10 Million/uL [facility] HGB 12.8 11.7 - 15.5 g/dL [facility] HCT 39.4 35.0 - 45.0 % [facility] MCV 89.3 80.0 - 100.0 fL [facility] MCH (QHPE) 29.0 27.0 - 33.0 pg [facility] MCHC 32.5 32.0 - 36.0 g/dL [facility] RDW (QHPE) 13.9 11.0 - 15.0 % [facility] PLT 390 140 - 400 Thousand/u L [facility] MPV 9.8 7.5 - 12.5 fL [facility] ABS. NEUTROPHILS 5,150 1,500 - 7,800 cells/uL [facility] ABS. LYMPHOCYTES 3,790 850 - 3,900 cells/uL [facility] ABS. MONOCYTES 880 200 - 950 cells/uL [facility] ABS. EOSINOPHILS 110 15 - 500 cells/uL [facility] ABS. BASOPHILS 70 0 - 200 cells/uL [facility] SEG NEUTROPHILS 51.5 % [facility] LYMPHOCYTES 37.9 % [facility] MONOCYTES 8.8 % [facility] EOSINOPHILS 1.1 % [facility] BASOPHILS 0.7 % [facility] 07/11/2018 8:19 AM EMBROIDERY SUPERVISOR 07/11/2018 8:20 AM EMBROIDERY SUPERVISOR Narrative [facility] - 07/11/2018 8:19 AM EMBROIDERY SUPERVISOR FASTING:YES FASTING: YES Resulting Agency Comment Performing Organization Information: ?Site ID: [place] ?Name: [facility] ?Address: [address] [place] [address] ?Director: Servnado Cervantes D.O., MPH [facility] Edited Resu lt - Final [facility] * COMPREHENSIVE METABOLIC PANEL (07/11/2018 8:19 AM EMBROIDERY SUPERVISOR) GLUCOSE 92 65 - 99 mg/dL [facility] Comment: ? Fasting reference interval BUN 21 7 - 25 mg/dL [facility] CREATININE S/P/B 0.79 0.50 - 1.10 mg/dL [facility] EGFR NON-AFR. AMER. 88 > OR = 60 mL/min/1. 73m2 [facility] EGFR AFR. AMER. 102 > OR = 60 mL/min/1. 73m2 [facility] BUN CREATININE RATIO NOT APPLICABLE 6 - 22 (calc) [facility] SODIUM S/P/B 137 135 - 146 mmol/L [facility] POTASSIUM S/P/B 4.2 3.5 - 5.3 mmol/L [facility] CHLORIDE S/P/B 104 98 - 110 mmol/L [facility] CO2 29 20 - 32 mmol/L [facility] CALCIUM S/P/B 9.2 8.6 - 10.2 mg/dL [facility] TOTAL PROTEIN S/P/B 6.6 6.1 - 8.1 g/dL [facility] ALBUMIN S/P/B 3.9 3.6 - 5.1 g/dL [facility] GLOBULIN 2.7 1.9 - 3.7 g/dL (calc) [facility] ALBUMIN/GLOBUL IN RATIO 1.4 1.0 - 2.5 (calc) [facility] BILIRUBIN TOTAL (FLUID) 0.4 0.2 - 1.2 mg/dL [facility] ALK PHOS 73 33 - 115 U/L [facility] AST 17 10 - 35 U/L [facility] ALT 16 6 - 29 U/L [facility] 07/11/2018 8:19 AM EMBROIDERY SUPERVISOR 07/11/2018 8:20 AM EMBROIDERY SUPERVISOR Narrative [facility] - 07/11/2018 8:19 AM EMBROIDERY SUPERVISOR FASTING:YES FASTING: YES Resulting Agency Comment Performing Organization Information: ?Site ID: [place] ?Name: [facility] ?Address: [address] [place] [address] ?Director: Servando Cervantes D.O., MPH us Keyonna [facility] Edited Resu lt - Final [facility] * (ABNORMAL) IRON SATURATION PANEL (07/11/2018 8:19 AM EMBROIDERY SUPERVISOR) IRON 132 40 - 190 mcg/dL [facility] IRON BINDING CAPACITY 463(H) 250 - 450 mcg/dL (calc) [facility] % IRON SATURATION 29 11 - 50 % (calc) [facility] 07/11/2018 8:19 AM EMBROIDERY SUPERVISOR 07/11/2018 8:20 AM EMBROIDERY SUPERVISOR Narrative [facility] - 07/11/2018 8:19 AM EMBROIDERY SUPERVISOR FASTING:YES FASTING: YES Resulting Agency Comment Performing Organization Information: ?Site ID: [place] ?Name: [facility] ?Address: [address] [address] ?Director: Servando Cervantes D.O., MPH us [facility] Edited Resu lt - Final [facility] * (ABNORMAL) LIPID PANEL (07/11/2018 8:19 AM EMBROIDERY SUPERVISOR) CHOLESTEROL 139 <200 mg/dL [facility] HDL 38(L) >50 mg/dL [facility] TRIGLYCERIDES 204(H) <150 mg/dL [facility] LDL (CALCULATED) 71 mg/dL (calc) [facility] Comment: Reference range: <100 Desirable range <100 mg/dL for primary prevention; ?? <70 mg/dL for patients with CHD or diabetic patients with > or = 2 CHD risk factors. LDL-C is now calculated using the Deep-Laya calculation, which is a validated novel method providing better accuracy than the Friedewald equation in the estimation of LDL-C. Deep SS et al. JAMAR. 2013;310(19): 4441-2704 (http://education.[employer]/faq/NZF200) CHOL/HDL RATIO 3.7 <5.0 (calc) [facility] NON HDL CHOLESTEROL 101 <130 mg/dL (calc) [facility] Comment: For patients with diabetes plus 1 major ASCVD risk factor, treating to a non-HDL-C goal of <100 mg/dL (LDL-C of <70 mg/dL) is considered a therapeutic option. 07/11/2018 8:19 AM EMBROIDERY SUPERVISOR 07/11/2018 8:20 AM EMBROIDERY SUPERVISOR Narrative [facility] - 07/11/2018 8:19 AM EMBROIDERY SUPERVISOR FASTING:YES FASTING: YES Resulting Agency Comment Performing Organization Information: ?Site ID: [place] ?Name: [facility] ?Address: [address] [address] ?Director: Servando Cervantes D.O., MPH us Keyonna [facility] Edited Resu lt - Final [facility] documented in this encounter Visit Diagnoses Not on filedocumented in this encounter Care Teams Cupola Melter Helper Relationship Specialty Start Date End Date Keyonna Armstrong APNP [address] [place] [address] PCP - General NURSE PRACTITIONER 05/06/18 documented as of this encounter
--- OUTSIDE RECORDS SUMMARY | 2024-07-10 23:01 | XMS_ITS | Encounter Summary ---
Author Organization [facility] Address [address] [place] [address]. [place], [place] [address] [place] [address] Care Team Providers Care Lokie Driver Name Role Phone Unavailable Primary Care Provider Unavailabl e Encounter Details Date Type Department Care Team (Latest Contact Info) Description 10/19/2016 Abstract [facility] Social History Tobacco Use Types Packs/Day Years Used Date Smoking Tobacco: Never Assessed Comments Unknown Sex and Gender Information Value Date Recorded Sex Assigned at Not on file Legal Sex Female 5:47 PM CDT Gender Identity Female 07/17/2022 10:27 AM BUILDINGS AND GROUNDS SUPERINTENDENT Sexual Orientation Straight 07/17/2022 10 :27 AM BUILDINGS AND GROUNDS SUPERINTENDENT documented as of this encounter Plan of Treatment Upcoming Encounters Date Type Department Care Team (Late st Contact Info) Description 07/25/2024 10:00 AM BUILDINGS AND GROUNDS SUPERINTENDENT Office Visit [facility] Family & Internal Medicine - [place] [address] [place] [address] Keyonna Armstrong APNP [address] [place] [address] 07/31/2024 10:15 AM BUILDINGS AND GROUNDS SUPERINTENDENT Office Visit [facility] [address] [place], [place] [phone] Pepe Mitchell MD [facility]. [facility] [address] [place], [place] [phone] documented as of this encounter Visit Diagnoses Not on filedocumented in this encounter
--- OUTSIDE RECORDS SUMMARY | 2024-07-10 23:01 | XMS_ITS | Encounter Summary ---
Author Organization [facility] Address [address] [place] [address]. [place], [place] [address] [place] [address] Care Team Providers Care Electrician Rectifier Maintenance Name Role Phone Unavailable Primary Care Provider Unavailabl e Encounter Details Date Type Department Care Team (Latest Contact Info) Description 05/22/2017 Abstract [facility] Medical [facility] Social History Tobacco Use Types Packs/Day Years Used Date Smoking Tobacco: Never Assessed Comments Unknown Sex and Gender Information Value Date Recorded Sex Assigned at Not on file Legal Sex Female 5:47 PM CDT Gender Identity Female 07/17/2022 10:27 AM ANTIQUE AUTOMOBILES REPAIRER Sexual Orientation Straight 07/17/2022 10 :27 AM ANTIQUE AUTOMOBILES REPAIRER documented as of this encounter Plan of Treatment Upcoming Encounters Date Type Department Care Team (Late st Contact Info) Description 07/25/2024 10:00 AM ANTIQUE AUTOMOBILES REPAIRER Office Visit [facility] Medical Group Family & Internal Medicine - [place] [address] [place] [address] Keyonna Armstrong APNP [address] [place] [address] 07/31/2024 10:15 AM ANTIQUE AUTOMOBILES REPAIRER Office Visit [facility], [facility] [address] [place], [place] [phone] Pepe Mitchell MD [facility]. [facility] [address] [place], [place] [phone] documented as of this encounter Visit Diagnoses Not on filedocumented in this encounter
--- OUTSIDE RECORDS SUMMARY | 2024-07-10 23:01 | XMS_ITS | Encounter Summary ---
Author Organization [facility] Address [address] [place] [address]. [place], [place] [id number] [place] [address] Care Team Providers Care Software Configuration Engineer Name Role Phone Unavailable Primary Care Provider Unavailabl e Encounter Details Date Type Department Care Team (Latest Contact Info) Description 11/21/2017 Abstract [facility] Medical Group Social History Tobacco Use Types Packs/Day Years Used Date Smoking Tobacco: Never Assessed Comments Unknown Sex and Gender Information Value Date Recorded Sex Assigned at Not on file Legal Sex Female 5:47 PM CDT Gender Identity Female 07/17/2022 10:27 AM RECEIVER SETTER Sexual Orientation Straight 07/17/2022 10 :27 AM RECEIVER SETTER documented as of this encounter Progress Notes * Generic Conversion MD Marti - 11/21/2017 2:46 PM CDT Message Recorded as Task Date: 11/13/2017 10:03 AM, Created By: Maria L Singh Task Name: Follow Up Assigned To: Jorden Barrios Nurse Team Regarding Patient: Veronica Evangelista, Status: Active Comment: Maria L Singh - 13 Nov 2017 10:03 AM TASK CREATED call insurance to see if prior approval for ct abd w and w/o then [facility] thurs around 11am Maria L Singh 19 Nov 2017 9:38 AM TASK EDITED called [employer] to see if need prior approval for ct abd. was told yes need prior auth. reference number [id number] and was told have to call [phone] to get prior auth Maria L Singh 19 Nov 2017 9:53 AM TASK EDITED called [phone] and received prior approvel went thru good from 11/19 to 12/09 2017 auth number [id number] Maria L Singh - 19 Nov 2017 9:56 AM TASK EDITED called Philip mendez to schedule pt scheduled for Sundaydecember 04 at 1030am Tomy Singhn 19 Nov 2017 9:59 AM TASK EDITED called pt left detailed message of appt. is on december 04 at 1030am to arrive at 10am and be npo [place]water 4 hours before procedure, to call if any questions Nova Henning - 21 Nov 2017 1:43 PM TASK EDITED Patient said that [facility] [place] does not have the proper orders for the testing. [facility] is [phone] Tomy Singhn 21 Nov 2017 2:44 PM TASK EDITED sent labs over to them per fax FranciscoMaria L 21 Nov 2017 2:46 PM TASK EDITED called [facility] left message sent orders to them if need anything else to call back Signatures Electronically signed by : Dm HancockP.N.; Nov 21 2017 2:46PM RECEIVER SETTER (Author) documented in this encounter Plan of Treatment Upcoming Encounters Date Type Department Care Team (Late st Contact Info) Description 07/25/2024 10:00 AM RECEIVER SETTER Office Visit [facility] Medical Group Family & Internal Medicine - [place] [address] [place] [address] Keyonna Armstrong APNP [facility] [place] [address] 07/31/2024 10:15 AM RECEIVER SETTER Office Visit [facility] [place] [address] [place], [place] [id number] Pepe Mitchell MD [facility]. [place] [address] [place], [place] [phone] documented as of this encounter Visit Diagnoses Not on filedocumented in this encounter
--- OUTSIDE RECORDS SUMMARY | 2024-07-10 23:01 | XMS_ITS | Encounter Summary ---
Author Organization [facility] Address [address] [place] [address]. [place], [place] [id number] [place] [address] Care Team Providers Care Religious Healer Name Role Phone Unavailable Primary Care Provider Unavailabl e Encounter Details Date Type Department Care Team (Latest Contact Info) Description 04/02/2018 Abstract [facility] Medical Group Keyonna Armstrong APNP [address] [place] [address] Social History Tobacco Use Types Packs/Day Years Used Date Smoking Tobacco: Never Assessed Comments Unknown Sex and Gender Information Value Date Recorded Sex Assigned at Not on file Legal Sex Female 5:47 PM CDT Gender Identity Female 07/17/2022 10:27 AM BIODIESEL ENGINE SPECIALIST Sexual Orientation Straight 07/17/2022 10 :27 AM BIODIESEL ENGINE SPECIALIST documented as of this encounter Last Filed Vital Signs Vital Sign Reading Time Taken Comments Blood Pressure 147/98 04/02/2018 11:41 AM CDT Pulse 100 04/02/2018 11:41 AM CDT Temperature - - Respiratory Rate - - Oxygen Saturation - - Inhaled Oxygen Concentration - - Weight 137.7 kg (303 lb 8 oz) 04/02/2018 11:41 A M CDT Height 163.8 cm (5' 4.5) 04/02/2018 11:41 AM CD T Body Mass Index 51.29 04/02/2018 11:41 AM CDT documented in this encounter Progress Notes * YOBANI Cruz - 04/02/2018 11:40 AM CDT Reason For Visit Chronic Recheck Visit Chief Complaint Patient is here for follow up on HTN , Dm and depression. History of Present Illness HPI Free Text: Pt here today for follow up of chronic health conditions. She is due for routine labs. She is seeing endocrinology for incidental adenoma on her adrenal. She is due for a follow up with her in May 2018. She was instructed to follow up with [facility] at a previous visit to discuss alternative to OCP. She didnot follow through with this referral. She state she was started on OCP for painful periods and an ovarian cyst. She has no new complaints or concerns. Hypertension (Follow-Up): The patient presents for follow-up of primary hypertension. The patient states she has been stable with her blood pressure control since the last visit. She has no comorbid illnesses. She has no significant interval events. Symptoms: The patient is currently asymptomatic. Associated symptoms include no headache. Home monitoring: The patient checks her blood pressure sporadically.. Blood pressure control has been poor. Medications: the patient is adherent with her medication regimen. She denies medication side effects.. Medication(s): a diuretic. Disease Management: the patient is doing well with her blood pressure goals.. The patient is due for a lipid panel and a serum creatinine. Anxiety Disorder (Follow-Up): The patient is being seen for follow-up of anxiety. The patient reports doing well. Diabetes Type II (Follow-Up): The patient states she has been doing well with her Type II Diabetes control since the last visit. Comorbid Illnesses: hypertension, hyperlipidemia and obesity. Disease Course and Complications:. there have been no previous episodes of diabetic ketoacidosis. .there have been no previous hospitalizations.. She has no known diabetic complications. She has no significant interval events. Symptoms: The patient is currently asymptomatic. Associated symptoms include no polyuria, no polydipsia, no recent weight gain and no recent weight loss. Home monitoring: The patient is not checking blood sugars at home.. Medications: the patient is adherent with her medication regimen. She denies medication side effects.. Medication(s): Metformin HCl. Due For: a lipid panel, a hemoglobin A1c and a retinal exam. Insomnia (Follow-Up): The patient is being seen for follow-up of insomnia. The patient reports doing well. Comorbid Illnesses: anxiety, ZENON and depression. She has had no significant interval events. Interval symptoms: stable difficulty falling asleep and stable difficulty staying asleep. Associated symptoms: depression, but no snoring, no chronic pain, no nocturnal leg cramps, no restless legs and no hot flashes. The patient is not currently on medication for this problem. Additional history: Pt states she does not always wear her CPAP and when she does usually only keeps on for a few hours. . Depression (Follow-Up): The patient states her depression has been stable since the last visit. Comorbid Illnesses: anxiety. She has had no significant interval events. Interval Symptoms: stable depression. Associated symptoms include:. No associated symptoms are reported.. Social Support: the patient has good social support. Medications: Medication(s): a SNRI. Obstructive Sleep Apnea (Follow-Up): The patient is being seen for follow-up of obstructive sleep apnea. Interval symptoms: stable excessive daytime sleepiness, stable snoring, denies memory problems and denies irritability. Associated symptoms: depression, but no morning headaches and no decreased libido. The patient is not currently on medication for this problem. Additional history: Pt states she does not always wear her ordered CPAP as finds it difficult to tolerate. . Review of Systems Constitutional, ENT, Cardiovascular, Respiratory, Gastrointestinal and Neurological review of systems normal except as noted. Psychiatric: anxiety and depression, but not suicidal and no sleep disturbances. Active Problems 1. Adrenal adenoma (227.0) (D35.00) [...] (427.89) (R00.0) 17. Urinary retention (788.20) (R33.9) Surgical History 1. History of Gastric Surgery For Morbid Obesity Family History 1. Family history of Hypertension (V17.49) 2. Family history of Diabetes Mellitus (V18.0) 3. Family history of thyroid disease (V18.19) (Z83.49) 4. Family history of Stroke Syndrome (V17.1) 5. Family history of lung disease (V19.8) (Z83.6) 6. Family history of malignant neoplasm (V16.9) (Z80.9) 7. Family history of lung disease (V19.8) (Z83.6) 8. Family history of malignant neoplasm (V16.9) (Z80.9) Social History ?? Never a smoker ?? No alcohol use ?? Occasional caffeine consumption Current Meds 1. Benzonatate 100 MG Oral Capsule; TAKE 1 CAPSULE 3 TIMES DAILY NEEDED; Therapy: 26Feb2018 to (Evaluate:84Coh7076) Requested for: 08Ibh3770; Last Rx:12Fmb0213 Ordered 2. Enpresse-28 Oral Tablet; TAKE 1 TABLET BY MOUTH EVERY DAY; Therapy: 30May2012 to (Evaluate:50Vjs8514) Requested for: 78Jni8566; Last Rx:42Yjm6922 Ordered 3. HydroCHLOROthiazide 25 MG Oral Tablet; TAKE ONE TABLET BY MOUTH EVERY DAY; Therapy: 20May2012 to (Evaluate:78Plc3737) Requested for: 89Ihu6448; Last Rx:46Wic3010 Ordered 4. Lisinopril 20 MG Oral Tablet; TAKE 1 TABLET BY MOUTH EVERY DAY; Therapy: 64Fsj5503 to (Evaluate:27Apr2018) Requested for: 07Wnr0792; Last Rx:03Aer6828 Ordered 5. LORazepam 0.5 MG Oral Tablet; TAKE 1 TABLET BY MOUTH 3 TIMES A DAY; Therapy: 75Vqz2849 to (Evaluate:29Apr2018) Requested for: 18Bvv6679; Last Rx:58Mcq2519 Ordered 6. MetFORMIN HCl - 500 MG Oral Tablet; TAKE 1 TABLET BY MOUTH EVERY MORNING AND THEN TAKE 2 TABLETS AT BEDTIME; Therapy: 24Dec2011 to (Evaluate:77Yqx1136) Requested for: 09Jan2018; Last Rx:09Jan2018 Ordered 7. Methocarbamol 750 MG Oral Tablet; TAKE 1 TO 2 TABLETS 3 TIMES DAILY NEEDED FOR MUSCLE SPASM; Therapy: 11Aug2014 to (Evaluate:60Sns1226) Requested for: 85Qvh9634; Last Rx:64Eiw4194 Ordered 8. Metoprolol Succinate ER 100 MG Oral Tablet Extended Release 24 Hour; TAKE 1 TABLET BY MOUTH EVERY DAY; Therapy: 08May2017 to (Evaluate:53Iyp7214) Requested for: 18Oct2017; Last Rx:18Oct2017 Ordered 9. Ondansetron 4 MG Oral Tablet Disintegrating; DISSOLVE 1-2 TABLETS ON TONGUE EVERY 8 HOURS NEEDED FOR NAUSEA ..PATIENT NEEDS APPOINTMENT; Therapy: 02Mar2015 to (Evaluate:25Nov2016) Requested for: 20Nov2016; Last Rx:20Nov2016 Ordered 10. Pantoprazole Sodium 40 MG Oral Tablet Delayed Release; TAKE 1 TABLET EVERY DAY; Therapy: 08Jun2012 to (Evaluate:12Jun2018) Requested for: 14Dec2017; Last Rx:08Qux3066 Ordered 11. Polyethylene Glycol 3350 Oral Powder; MIX 1 CAPFUL (17GM) IN 8 OUNCES OF WATER, JUICE, OR TEA AND DRINK DAILY; Therapy: 48Tjw5288 to (Evaluate:24Oct2017) Requested for: 27Apr2017; Last Rx:28Skx7441 Ordered 12. Venlafaxine HCl ER 75 MG Oral Capsule Extended Release 24 Hour; TAKE ONE CAPSULE BY MOUTH EVERY MORNING AND TAKE 2 CAPSULES EVERY EVENING; Therapy: 13May2012 to (Evaluate:95Zds4549) Requested for: 06Jan2018; Last Rx:06Jan2018 Ordered 13. Ventolin HFA 108 (90 Base) MCG/ACT Inhalation Aerosol Solution; INHALE 2 PUFFS BY MOUTH EVERY 4 TO 6 HOURS NEEDED; Therapy: 36Bsz1967 to (Last Rx:67Kah0336) Requested for: 31Nne7356 Ordered 14. Zolpidem Tartrate 10 MG Oral Tablet; TAKE 1 TABLET BY MOUTH AT BEDTIME NEEDED; Therapy: 38Ews9737 to (Evaluate:05May2018) Requested for: 55Wfm8435; Last Rx:02Vah9893 Ordered Allergies 1. No Known Drug Allergies Vitals Recorded: 82Xfd9534 11:41AM Temperature 97.8 F Heart Rate 100 Respiration 16 Systolic 147 Diastolic 98 O2 Saturation 98 Height 5 ft 4.5 in Weight 303 lb 8 oz BMI Calculated 51.29 BSA Calculated 2.35 Physical Exam Constitutional General appearance: No [...] with treatment. total time of encounter was 25 minutes and 15 minutes was spent counseling. Assessment 1. Anxiety (300.00) (F41.9) 2. Hypertension (401.9) (I10) 3. Dyslipidemia (272.4) (E78.5) 4. Morbid obesity (278.01) (E66.01) 5. Obstructive sleep apnea (327.23) (G47.33) 6. Menorrhagia (626.2) (N92.0) 7. Depression (311) (F32.9) 8. Insomnia (780.52) (G47.00) Plan Anxiety 1. Avoid foods and beverages that contain caffeine.; Status:Complete; Done: 02Apr2018 Ordered; For:Anxiety; Ordered By:Keyonna Armstrong; 2. Call if: New symptoms occur.; Status:Complete; Done: 02Apr2018 Ordered; For:Anxiety; Ordered By:Keyonna Armstrong; 3. Be sure to get at least 8 hours of sleep every night.; Status:Complete; Done: 12Dgt6839 Ordered; For:Anxiety; Ordered By:Keyonna Armstrong; 4. Call if: The symptoms seem worse.; Status:Complete; Done: 71Gbb9659 Ordered; For:Anxiety; Ordered By:Keyonna Armstrong; 5. Continue with our present treatment plan.; Status:Complete; Done: 79Mlg1715 Ordered; For:Anxiety; Ordered By:Keyonna Armstrong; 6. Call if: Your feelings of being frightened, nervous, anxious, and out of control are happening more often.; Status:Complete; Done: 27Dts0352 Ordered; For:Anxiety; Ordered By:Keyonna Armstrong; 7. Decreasing the stress in your life may help your condition improve.; Status:Complete; Done: 94Crf5704 Ordered; For:Anxiety; Ordered By:Keyonna Armstrong; 8. Call 911 if: You are considering suicide.; Status:Complete; Done: 79Ddl0001 Ordered; For:Anxiety; Ordered By:Keyonna Armstrong; 9. Call 911 if: You are thinking about harming yourself or someone else.; Status:Complete; Done: 24Ele7758 Ordered; For:Anxiety; Ordered By:Keyonna Armstrong; 10. Seek Immediate Medical Attention if: ; Status:Complete; Done: 59Bor9127 Ordered; For:Anxiety; Ordered By:Keyonna Armstrong; 11. Seek Immediate Medical Attention if: You feel your heart is beating very fast or skipping beats.; Status:Complete; Done: 90Bnp5043 Ordered; For:Anxiety; Ordered By:Keyonna Armstrong; Hypertension 12. Lisinopril 40 MG Oral Tablet; TAKE 1 TABLET BY MOUTH DAILY Rx By: Keyonna Armstrong; Dispense: 90 Days ; #:90 Tablet; Refill: 0; For: Hypertension; TEX = N; Verified Transmission to [id number]; Last Updated By: Nazia Roach; 04/02/2018 12:09:32 PM 13. We encourage you to begin to make lifestyle changes to help control your blood pressure. These may include losing weight, increasing your activity level, limiting salt in your diet, decreasing alcohol intake, and eating a diet low in fat and rich in fruits and vegetables.; Status:Complete; Done: 43Blv2992 Ordered; For:Hypertension; Ordered By:Keyonna Armstrong; 14. Call if: You become dizzy or lightheaded, especially when you stand up after sitting for a while.; Status:Complete; Done: 13Mhk6141 Ordered; For:Hypertension; Ordered By:Keyonna Armstrong; 15. Follow-up visit in 3 months Outpatient Follow-up Status: Complete Done: 81Zzh6017 Ordered; For: Hypertension; Ordered By: Keoynna Armstrong Performed: Due: 73Bfi4312; Last Updated By: Makenzie Waddell; 04/02/2018 12:25:28 PM 16. We want to put you on the DASH diet for 2000 calories.; Status:Complete; Done: 93Uxr6779 Ordered; For:Hypertension; Ordered By:Keyonna Armstrong; 17. Call if: You develop double vision (see two of everything).; Status:Complete; Done: 51Fho4660 Ordered; For:Hypertension; Ordered By:Keyonna Armstrong; 18. Call if: Your blood pressure is frequently higher than 140/90.; Status:Complete; Done: 19Ihv1261 Ordered; For:Hypertension; Ordered By:Keyonna Armstrong; 19. Call 911 if: You experience a new kind of chest pain (angina) or pressure.; Status:Complete; Done: 71Goo1861 Ordered; For:Hypertension; Ordered By:Keyonna Armstrong; 20. Call 911 if: You have any symptoms of a stroke.; Status:Complete; Done: 81Jte3095 Ordered; For:Hypertension; Ordered By:Keyonna Armstrong; 21. Seek Immediate Medical Attention if: You have a severe headache that will not go away.; Status:Complete; Done: 36Kiy4144 Ordered; For:Hypertension; Ordered By:Keyonna Armstrong; 22. Seek Immediate Medical Attention if: Your blood pressure is greater than 250/120 for 2 consecutive readings.; Status:Complete; Done: 66Zsn4738 Ordered; For:Hypertension; Ordered By:Keyonna Armstrong; Insomnia 23. Avoid foods and beverages that contain caffeine.; Status:Complete; Done: 08Tkh9381 Ordered; For:Insomnia; Ordered By:Keyonna Armstrong; 24. Call if: The symptoms seem worse.; Status:Complete; Done: 81Boy4701 Ordered; For:Insomnia; Ordered By:Keyonna Armstrong; 25. Do not eat anything for at least 2 hours before going to bed.; Status:Complete; Done: 65Slj0821 Ordered; For:Insomnia; Ordered By:Keyonna Armstrong; 26. Call if: You have feelings of extreme sadness and feelings of hopelessness.; Status:Complete; Done: 38Prm5058 Ordered; For:Insomnia; Ordered By:Keyonna Armstrong; 27. Limit your use of alcohol to 2 drinks or cans of beer a day.; Status:Complete; Done: 30Cfh5307 Ordered; For:Insomnia; Ordered By:Keyonna Armstrong; 28. Call if: You have symptoms of anxiety.; Status:Complete; Done: 18Zno0709 Ordered; For:Insomnia; Ordered By:Keyonna Armstrong; 29. Call if: You still are unable to sleep through the night after 2 weeks.; Status:Complete; Done: 50Jyp8962 Ordered; For:Insomnia; Ordered By:Keyonna Armstrong; Morbid obesity 30. Keep a diary of when and what you eat.; Status:Complete; Done: 06Zgk9645 Ordered; For:Morbid obesity; Ordered By:Keyonna Armstrong; 31. Call if: You are considering suicide.; Status:Complete; Done: 86Mdr4053 Ordered; For:Morbid obesity; Ordered By:Keyonna Armstrong; 32. We recommend that you bring your body mass index down to 25.; Status:Complete; Done: 87Zhe1333 Ordered; For:Morbid obesity; Ordered By:Keyonna Armstrong; 33. Call if: You are having difficulty sleeping (insomnia).; Status:Complete; Done: 79Vei8856 Ordered; For:Morbid obesity; Ordered By:Keyonna Armstrong; 34. Call if: You are urinating too frequently.; Status:Complete; Done: 25Dxj7230 Ordered; For:Morbid obesity; Ordered By:Keyonna Armstrong; 35. Call if: You feel thirsty most of the time.; Status:Complete; Done: 91Kif0424 Ordered; For:Morbid obesity; Ordered By:Keyonna Armstrong; 36. Call if: You feel your heart is beating very fast or skipping beats.; Status:Complete; Done: 79Yqa9396 Ordered; For:Morbid obesity; Ordered By:Keyonna Armstrong; 37. Call if: You have feelings of extreme sadness and feelings of hopelessness.; Status:Complete; Done: 49Bbz8487 Ordered; For:Morbid obesity; Ordered By:Keyonna Armstrong; 38. Call if: You have pain in your abdomen.; Status:Complete; Done: 02Pmk4138 Ordered; For:Morbid obesity; Ordered By:Keyonna Armstrong; 39. Call if: You have symptoms of sleep apnea.; Status:Complete; Done: 47Tyl1393 Ordered; For:Morbid obesity; Ordered By:Keyonna Armstrong; 40. Call 911 if: You have sudden or severe chest pain with shortness of breath, rapid breathing, or cough.; Status:Complete; Done: 42Mkd1115 Ordered; For:Morbid obesity; Ordered By:Keyonna Armstrong; 41. Seek Immediate Medical Attention if: You experience a new kind of chest pain (angina) or pressure.; Status:Complete; Done: 97Ish3627 Ordered; For:Morbid obesity; Ordered By:Keyonna Armstrong; Obstructive sleep apnea 42. Avoid sleeping on your back.; Status:Complete; Done: 52Mad8900 Ordered; For:Obstructive sleep apnea; Ordered By:Keyonna Armstrong; 43. Call if: You feel unusually tired.; Status:Complete; Done: 03Jpl8161 Ordered; For:Obstructive sleep apnea; Ordered By:Keyonna Armstrong; 44. Begin or continue regular aerobic exercise. Gradually work up to at least 3 sessions of 30 minutes of exercise a week.; Status:Complete; Done: 05Onr7427 Ordered; For:Obstructive sleep apnea; Ordered By:Keyonna Armstrong; 45. Call if: You have a dry, hacking cough.; Status:Complete; Done: 68Vnb5647 Ordered; For:Obstructive sleep apnea; Ordered By:Keyonna Armstrong; 46. Continue with our present treatment plan.; Status:Complete; Done: 24Yai0770 Ordered; For:Obstructive sleep apnea; Ordered By:Keyonna Armstrong; 47. Call if: You have swelling and puffiness of your lower leg or ankles.; Status:Complete; Done: 90Biz5747 Ordered; For:Obstructive sleep apnea; Ordered By:Keyonna Armstrong; 48. Some eating tips that can help you lose weight.; Status:Complete; Done: 61Cuj9237 Ordered; For:Obstructive sleep apnea; Ordered By:Keyonna Armstrong; 49. Call if: Your nose is stuffy or feels plugged.; Status:Complete; Done: 76Nmv8058 Ordered; For:Obstructive sleep apnea; Ordered By:Keyonna Armstrong; 50. We encourage all of our patients to exercise regularly. 30 minutes of exercise or physical activity five or more days a week is recommended for children and adults.; Status:Complete; Done: 63Dgg2670 Ordered; For:Obstructive sleep apnea; Ordered By:Keyonna Armstrong; 51. Call 911 if: You experience a new kind of chest pain (angina) or pressure.; Status:Complete; Done: 77Ylo7978 Ordered; For:Obstructive sleep apnea; Ordered By:Keyonna Armstrong; 52. Call 911 if: Your child's lips or face turn blue.; Status:Complete; Done: 42Vnw7307 Ordered; For:Obstructive sleep apnea; Ordered By:Keyonna Armstrong; 53. Seek Immediate Medical Attention if: You feel short of breath even while resting.; Status:Complete; Done: 71Cik9733 Ordered; For:Obstructive sleep apnea; Ordered By:Keyonna Armstrong; 54. Seek Immediate Medical Attention if: Your depression is worse.; Status:Complete; Done: 50Ftb4011 Ordered; For:Obstructive sleep apnea; Ordered By:Keyonna Armstrong; Anxiety/depression - Stable. Denies any HI or SI. Is to continue current meds. Reminded not to drive after taking lorazepam. HTN- sl elevated. Lisinopril increased to 40 mg once daily. She is to continue her other meds as well and follow up in 2 weeks for a [place] BP check. More plan at that time if her BP remains elevated. Dyslipidemia - Plan to recheck lipids. More plan after results. Morbid obesity - TLC and dietary changes discussed. ZENON - Discussed importance of controlling her ZENON. Discussed to try a use CPAP for at least 4 hoursper night. Pt is agreeable to this and will let me know if any problems. Insomnia - Stable. continue meds. Menorrhagia - Referral given for pt to be seen by [facility] for routine pap and to discuss alternatives to her current OCP. Risks of OCP use, again, at her age were discussed in detail with pt and feel at this time there may be a better option for her. Pt is in agreement with this and agrees to see [facility]. Labs ordered. More plan after results. Signatures Electronically signed by : Keyonna Armstrong APN; Apr 04 2018 7:51AM BIODIESEL ENGINE SPECIALIST (Author) documented in this encounter Plan of Treatment Upcoming Encounters Date Type Department Care Team (Late st Contact Info) Description 07/25/2024 10:00 AM BIODIESEL ENGINE SPECIALIST Office Visit [facility] Medical Group Family & Internal Medicine - [place] [address] [place] [address] Keyonna Armstrong APNP [address] [place] [address] 07/31/2024 10:15 AM BIODIESEL ENGINE SPECIALIST Office Visit [facility] [place] [address] [place], [place] [id number] Pepe Mitchell MD [facility]. [place] [address] [place], [place] [phone] documented as of this encounter Visit Diagnoses Not on filedocumented in this encounter
--- OUTSIDE RECORDS SUMMARY | 2024-07-10 23:01 | XMS_ITS | Encounter Summary ---
Author Organization [facility] Address [address] [place] [address]. [place], [place] [id number] [place] [address] Care Team Providers Care Supervisor [employer] Name Role Phone Unavailable Primary Care Provider Unavailabl e Encounter Details Date Type Department Care Team (Latest Contact Info) Description 02/04/2018 Abstract [facility] Priyanka Zepeda MD Social History Tobacco Use Types Packs/Day Years Used Date Smoking Tobacco: Never Assessed Comments Unknown Sex and Gender Information Value Date Recorded Sex Assigned at Not on file Legal Sex Female 5:47 PM CDT Gender Identity Female 07/17/2022 10:27 AM SALES ORDER SPECIALIST Sexual Orientation Straight 07/17/2022 10 :27 AM SALES ORDER SPECIALIST documented as of this encounter Plan of Treatment Upcoming Encounters Date Type Department Care Team (Late st Contact Info) Description 07/25/2024 10:00 AM SALES ORDER SPECIALIST Office Visit [facility] Family & Internal Medicine - [place] [address] [place] [address] Keyonna Armstrong APNP [address] [place] [address] 07/31/2024 10:15 AM SALES ORDER SPECIALIST Office Visit [facility] [place], [place] [address] [place], [place] [id number] Pepe Mitchell MD Three [facility]. [place] [address] [place] [address] documented as of this encounter Visit Diagnoses Not on filedocumented in this encounter
--- OUTSIDE RECORDS SUMMARY | 2024-07-10 23:01 | XMS_ITS | Encounter Summary ---
Author Organization [facility] Address [address] [place] [address]. [place], [place] [id number] [place] [address] Care Team Providers Care Chiropractic Physician Name Role Phone Unavailable Primary Care Provider Unavailabl e Encounter Details Date Type Department Care Team (Late st Contact Info) Description 11/13/2017 Abstract [facility] Medical [facility] - [address], [address] [place] [address] Antoinette Ochoa MD [address] [facility] [address], [place] [address] Social History Tobacco Use Types Packs/Day Years Used Date Smoking Tobacco: Never Assessed Comments Unknown Sex and Gender Information Value Date Recorded Sex Assigned at Not on file Legal Sex Female 5:47 PM CDT Gender Identity Female 07/17/2022 10:27 AM SPEECH LANGUAGE PATHOLOGIST ASSISTANT Sexual Orientation Straight 07/17/2022 10 :27 AM SPEECH LANGUAGE PATHOLOGIST ASSISTANT documented as of this encounter Last Filed Vital Signs Vital Sign Reading Time Taken Comments Blood Pressure 122/70 11/13/2017 9:05 AM CDT Pulse 113 11/13/2017 9:04 AM CDT Temperature - - Respiratory Rate - - Oxygen Saturation - - Inhaled Oxygen Concentration - - Weight 133.4 kg (294 lb) 11/13/2017 9:04 AM CDT Height 163.8 cm (5' 4.5) 11/13/2017 9:04 AM CDT Body Mass Index 49.69 11/13/2017 9:04 AM CDT documented in this encounter Progress Notes * Antoinette Barrios MD - 11/13/2017 9:00 AM CDT Reason For Visit New Patient Visit Chief Complaint adrenal nodule History of Present Illness Adrenal Mass: Symptoms: sweating and menstrual irregularity, but no weight loss, no weight gain, noweakness, no headache, no palpitations, no lightheadedness, no dyspnea, no abdominal pain, no tremor, no sense of doom, no pallor, no rash, no hirsutism and no gynecomastia The patient presents with complaints of occasional episodes of panic attacks... HPI Free Text: 47 yo F with hx of gastric bypass in 1993 , HTN, HLD here to establish care for a left adrenal nodule had recently flu and pneumonia CT chest was done on september 27 showed an incidental left adrenal nodule of 1.8 cm plasma and 24 h urine catecholamines and metanephrines were ordered by PCP and showed elevated normetanephrine and plasma renin patient was on decongestant shortly before her labs HTN for about 10 years was well controlled with medications up until she was recently sick with the flu and pneumonia used to be on metoprolol and HCTZ lisinopril added on september 27 no recurrent spells + easy bruising no abdominal striae started weight watchers about a month ago lost 10 lbs + minimal sweating + feeling tired no palpitations hx of irregular periods on control no family hx of adrenal tumors or MEN syndrome Review of Systems See HPI for pertinent positives. Active Problems 1. Adrenal adenoma (227.0) (D35.00) 2. Anxiety (300.00) (F41.9) 3. Bronchitis, acute (466.0) (J20.9) 4. Chronic insomnia (780.52) (F51.04) 5. Depression (311) (F32.9) 6. Dyslipidemia (272.4) (E78.5) 7. Esophageal reflux (530.81) (K21.9) 8. High serum renin (790.99) (R79.89) 9. History of motion sickness (V13.89) (Z87.898) 10. Hypertension (401.9) (I10) 11. Impaired fasting glucose (790.21) (R73.01) 12. Long-term use of high-risk medication (V58.69) (Z79.899) 13. Morbid obesity (278.01) (E66.01) 14. Obstructive sleep apnea (327.23) (G47.33) 15. Right ovarian cyst (620.2) (N83.201) 16. Shortness of breath at rest (786.05) (R06.02) 17. Sinus tachycardia (427.89) (R00.0) 18. Urinary retention (788.20) (R33.9) 19. Wheezing (786.07) (R06.2) Surgical History 1. History [...] ?? Occasional caffeine consumption Current Meds 1. Albuterol Sulfate (2.5 MG/3ML) 0.083% Inhalation Nebulization Solution; USE 1 UNIT DOSE IN NEBULIZER EVERY 4 HOURS NEEDED; Therapy: 28Sep2017 to (Last Rx:28Sep2017) Requested for: 28Sep2017 Ordered 2. Benzonatate 100 MG Oral Capsule; TAKE 1 CAPSULE EVERY 6 HOURS NEEDED; Therapy: 20Sep2017 to (Evaluate:28Sep2017) Requested for: 20Sep2017; Last Rx:20Sep2017 Ordered 3. Enpresse-28 Oral Tablet; TAKE 1 TABLET BY MOUTH EVERY DAY; Therapy: 30May2012 to (Evaluate:31Flr9212) Requested for: 01Cay5009; Last Rx:[id number] Ordered 4. HydroCHLOROthiazide 25 MG Oral Tablet; TAKE ONE TABLET BY MOUTH EVERY DAY; Therapy: 20May2012 to (Evaluate:05May2018) Requested for: 28Gsm2820; Last Rx:[id number]; Status: ACTIVE - Renewal Denied Ordered 5. Ibuprofen 800 MG Oral Tablet; TAKE 1 TABLET 3 TIMES DAILY WITH FOOD NEEDED for pain; Therapy: 11Aug2014 to (Evaluate:12May2016) Requested for: 52Ibe1199; Last Rx:[id number] Ordered 6. Lisinopril 20 MG Oral Tablet; TAKE 1 TABLET BY MOUTH EVERY DAY; Therapy: 28Sep2017 to (Evaluate:27Apr2018) Requested for: 29Oct2017; Last Rx:[id number] Ordered 7. LORazepam 0.5 MG Oral Tablet; TAKE 1 TABLET BY MOUTH 3 TIMES A DAY NEEDED; Therapy: 61Nwp8827 to (Evaluate:18Nov2017) Requested for: 22Oct2017; Last Rx:19Oct2017; Status: ACTIVE - Renewal Denied Ordered 8. MetFORMIN HCl - 500 MG Oral Tablet; TAKE 1 TABLET BY MOUTH EVERY MORNING AND THEN TAKE 2 TABLETS AT BEDTIME; Therapy: 24Dec2011 to (Evaluate:18Nov2017) Requested for: 19Oct2017; Last Rx:19Oct2017 Ordered 9. Methocarbamol 750 MG Oral Tablet; TAKE 1 TO 2 TABLETS 3 TIMES DAILY NEEDED FOR MUSCLE SPASM; Therapy: 11Aug2014 to (Evaluate:93Weu1878) Requested for: 31Quq4793; Last Rx:[id number] Ordered 10. Metoprolol Succinate ER 100 MG Oral Tablet Extended Release 24 Hour; TAKE 1 TABLET BY MOUTH EVERY DAY; Therapy: 08May2017 to (Evaluate:24Vuv6646) Requested for: 18Oct2017; Last Rx:18Oct2017 Ordered 11. Nebulizer Device; USE DIRECTED; Therapy: 28Sep2017 to (Last Rx:28Sep2017) Requested for: 28Sep2017 Ordered 12. Ondansetron 4 MG Oral Tablet Disintegrating; DISSOLVE 1-2 TABLETS ON TONGUE EVERY 8 HOURS NEEDED FOR NAUSEA ..PATIENT NEEDS APPOINTMENT; Therapy: 02Mar2015 to (Evaluate:25Nov2016) Requested for: 20Nov2016; Last Rx:20Nov2016 Ordered 13. Pantoprazole Sodium 40 MG Oral Tablet Delayed Release; TAKE 1 TABLET EVERY DAY; Therapy: 08Jun2012 to (Evaluate:21Dec2017) Requested for: 05Wcs7234; Last Rx:[id number] Ordered 14. Polyethylene Glycol 3350 Oral Powder; MIX 1 CAPFUL (17GM) IN 8 OUNCES OF WATER, JUICE, OR TEA AND DRINK DAILY; Therapy: 59Nnf7821 to (Evaluate:24Oct2017) Requested for: 27Apr2017; Last Rx:27Apr2017 Ordered 15. PredniSONE 20 MG Oral Tablet; TAKE 2 TABLETS DIALY FOR 4 DAYS, THEN 1 TABLET DAILY FOR 3 DAYS; Therapy: 28Sep2017 to (Last Rx:28Sep2017) Requested for: 28Sep2017 Ordered 16. Venlafaxine HCl ER 75 MG Oral Capsule Extended Release 24 Hour; TAKE ONE CAPSULE BY MOUTH EVERY MORNING AND TAKE 2 CAPSULES EVERY EVENING; Therapy: 13May2012 to (Evaluate:80Wtp4366) Requested for: 01Nov2017; Last Rx:[id number] Ordered 17. Ventolin HFA 108 (90 Base) MCG/ACT Inhalation Aerosol Solution; INHALE 2 PUFFS BY MOUTH EVERY 4 TO 6 HOURS NEEDED FOR SHORTNESS OFBREATH; Therapy: 27Sep2017 to (Last Rx:27Sep2017) Requested for: 27Sep2017 Ordered 18. Zolpidem Tartrate 10 MG Oral Tablet; TAKE 1 TABLET BY MOUTH AT BEDTIME NEEDED; Therapy: 88Otq0140 to (Evaluate:92Uqz1079) Requested for: 07Nov2017; Last Rx:[id number] Ordered Allergies 1. No Known Drug Allergies Vitals Recorded: 13Nov2017 09:04AM Temperature 98.7 F Heart Rate 113 Respiration 20 O2 Saturation 97 Height 5 ft 4.5 in Weight 294 lb BMI Calculated 49.69 BSA Calculated 2.32 Systolic Sitting 122 Diastolic Sitting 70 Systolic Standing 132 Diastolic Standing 68 Physical Exam Constitutional General appearance: No acute distress, well appearing and well nourished. obese.. Eyes Conjunctiva and lids: No swelling, erythema or discharge. Ears, Nose, Mouth, and Throat External inspection of ears and nose: Normal. Pulmonary Respiratory effort: No increased work of breathing or signs of respiratory distress. Auscultation of lungs: Clear to auscultation. Cardiovascular Palpation of heart: Normal PMI, no thrills. Auscultation of heart: Normal rate and rhythm, normal S1 and S2, without murmurs. Examination of extremities for edema and/or varicosities: Normal. Abdomen Abdomen: Non-tender, no masses. Musculoskeletal Gait and station: Normal. Neurologic Reflexes: 2+ and symmetric. Psychiatric Orientation to person, place, and time: Normal. Mood and affect: Normal. The thyroid was normal. Results/Data QU-METANEPHRINES, FRACT. LC/MS/MS, 24 HR URINE 12633 [id number] 11:46AM Keyonna Armstrong Test Name Result Flag Reference 24 HR URINE VOLUME 3000 mL METANEPHRINE 123 mcg/24 h 58-203 This test was developed and its analytical performance characteristics have been determined by [employer] [place], [place]. It has not been cleared or approved by the U.S. Food and Drug Administration. This assay has been validated pursuant to the CLIA regulations and is used for clinical purposes. NORMETANEPHRINE 887 mcg/24 h H 88-649 This test was developed and its analytical performance characteristics have been determined by [employer] [place], [place]. It has not been cleared or [...] is recommended for confirmation. Test Performed at: [facility] [address] LYDIA ALDANA MD,PHD QU-CATECHOLAMINES FRAC AND CREATININE, [address] [place] [address] 19Oct2017 11:46AM Keyonna Armstrong Test Name Result Flag Reference 24 HR URINE VOLUME 3000 mL EPINEPHRINE, 24 HR URINE see note Results are below the reportable range for this analyte, which is 2.0 mcg/L. This test was developed and its analytical performance characteristics have been determined by [employer] [place], [place]. It has not been cleared or approved by the U.S. Food and Drug Administration. This assay has been validated pursuant to the CLIA regulations and is used for clinical purposes. NOREPINEPHRINE, 24 HR UR 125 mcg/24 h H 15-100 This test was developed and its analytical performance characteristics have been determined by [employer] [place], [place]. It has not been cleared or approved by the U.S. Food and Drug Administration. This assay has been validated pursuant to the CLIA regulations and is used for clinical purposes. CALCULATED TOTAL (E+NE) 125 mcg/24 h H 26-121 This test was developed and its analytical performance characteristics have been determined by [employer] [place], [place]. It has not been cleared or approved by the U.S. Food and Drug Administration. This assay has been validated pursuant to the CLIA regulations and is used for clinical purposes. DOPAMINE, 24 HR URINE 399 mcg/24 h 52-480 This test was developed and its analytical performance characteristics have been determined by [employer] [place], [place]. It has not been cleared or approved by the U.S. Food and Drug Administration. This assay has been validated pursuant to the CLIA regulations and is used for clinical purposes. CREATININE, 24 HOUR URINE 1.96 g/24 h 0.63-2.50 REPORT COMMENT: SPLIT 10/17/2017 FROM [id number] Test Performed at: [facility]/[address] LYDIA ALDANA MD,PHD -COMPREHENSIVE METABOLIC PANEL [address] [id number] 11:18AM Keyonna Armstrong Test Name Result Flag Reference GLUCOSE 91 mg/dL 65-99 Fasting reference interval UREA NITROGEN (BUN) 19 mg/dL 7-25 CREATININE 0.80 mg/dL 0.50-1.10 eGFR NON-AFR. CANADIAN 87 > OR = 60 UNITS: mL/min/1.73m2 [...] ALT 15 U/L 6-29 Test Performed at: [facility] [address] [place] [address] GENE VILLAR DO,MPH QU-METANEPHRINES, FRACT, FREE, LC/MS/MS, PLASMA 39722 17Oct2017 11:18AM Keyonna Armstrong Test Name Result Flag Reference METANEPHRINE, FREE 31 pg/mL <=57 This test was developed and its analytical performance characteristics have been determined by [employer] [place], [place]. It has not been cleared or approved by the U.S. Food and Drug Administration. This assay has been validated pursuant to the CLIA regulations and is used for clinical purposes. NORMETANEPHRINE, FREE 181 pg/mL H <=148 This test was developed and its analytical performance characteristics have been determined by [employer] [facility] [place], [place]. It has not been cleared or approved by the U.S. Food and Drug Administration. This assay has been validated pursuant to the CLIA regulations and is used for clinical purposes. TOTAL, FREE (MN+NMN) 212 pg/mL H <=205 For additional information, please refer to http://education.Edumedics/faq/MetFractFree (This link is being provided for informational/educatio [...] analytical performance characteristics have been determined by [employer] [place], [place]. It has not been cleared or approved by the U.S. Food and Drug Administration. This assay has been validated pursuant to the CLIA regulations and is used for clinical purposes. Test Performed at: [facility] [address] [place], [place] LYDIA ALDANA MD,PHD QU-PLASMA RENIN ACTIVITY, LC/MS/MS 53067 17Oct2017 11:18AM Keyonna Armstrong Test Name Result Flag Reference PLASMA RENIN ACTIVITY, LC/MS/MS 26.99 ng/mL/h H 0.25-5.82 This test was developed and its analytical performance characteristics have been determined by [facility]. It has not been cleared or approved by FDA. This assay has been validated pursuant to the CLIA regulations and is used for clinical purposes. Test Performed at: [facility] [id number] [place] [address] SONYA BLANK MD,PHD,EKATERINA QU-ALDOSTERONE, LC/MS/MS 59[address] 17Oct2017 11:18AM Keyonna Armstrong Test Name Result Flag Reference ALDOSTERONE, LC/MS/MS 15 ng/dL Adult Reference Ranges for Aldosterone, LC/MS/MS: Upright 8:00-10:00 am < or = 28 ng/dL Upright 4:00-6:00 pm < or = 21 ng/dL Supine 8:00-10:00 am 3-16 ng/dL This test was developed and its analytical performance characteristics have been determined by [facility]. It has not been cleared or approved by FDA. This assay has been validated pursuant to the CLIA regulations and is used for clinical purposes. Test Performed at: [facility] [id number] [place] [address] SONYA BLANK MD,PHD,EKATERINA QU-CBC ( INCLUDES DIFF/PLT [...] 10.2 fL 7.5-12.5 ABSOLUTE NEUTROPHILS 7393 cells/uL 5392-7542 ABSOLUTE LYMPHOCYTES 3485 cells/uL 850-3900 ABSOLUTE MONOCYTES 1053 cells/uL H 200-950 ABSOLUTE EOSINOPHILS 121 cells/uL 15-500 ABSOLUTE BASOPHILS 48 cells/uL 0-200 NEUTROPHILS 61.1 % LYMPHOCYTES 28.8 % MONOCYTES 8.7 % EOSINOPHILS 1.0 % BASOPHILS 0.4 % Test Performed at: [place] [address] GENE VILLAR DO,MPH QU-TSH W/REFLEX TO FT4 00314 17Oct2017 11:18AM Keyonna Armstrong Test Name Result Flag Reference TSH W/REFLEX TO FT4 1.15 mIU/L Reference Range > or = 20 Years 0.40-4.50 Ranges First trimester 0.26-2.66 Second trimester 0.55-2.73 Third trimester 0.43-2.91 REPORT COMMENT: COLLECTION KIT GIVEN TO PATIENT. PATIENT ADVISED TO RETURN. Test Performed at: [facility] [place] [facility] [place] [address] GENE VILLAR DO,MPH Assessment 1. Adrenal adenoma (227.0) (D35.00) Plan 1. Adrenocorticotrop Horm ( ACTH ); Status:Hold For - Manual Activation; Requested for:13Nov2017; Perform:. [facility]; Due:13Dec2017;Ordered; For:Adrenal adenoma; Ordered By:Antoinette Ochoa; 2. Follow-up visit in 4 months Outpatient Follow-up Status: Hold For - Scheduling Requested for: 13Nov2017 Ordered; For: Adrenal adenoma; Ordered By: Antoinette Ochoa Performed: Due: 27Nov2017 3. Aldosterone; Status:Hold For - Manual Activation; Requested for:[id number]; [facility]form[facility]; Due:13Dec2017;Ordered; For:Adrenal adenoma; Ordered By:Antoinette Ochoa; 4. Compr Metabolic Prof ( CMP ); Status:Hold For - Manual Activation; Requested for:13Nov2017; [facility]; Due:13Dec2017;Ordered; For:Adrenal adenoma; Ordered By:Antoinette Ochoa; 5. Cortisol am Sample; Status:Hold For - Manual Activation; Requested for:13Nov2017; [facility]; Due:13Dec2017;Ordered; For:Adrenal adenoma; Ordered By:Antoinette Ochoa; 6. CT ABDOMEN W W/O; Status:Need Information - Financial Authorization; Requested for:13Nov2017; Perform:[facility]; Order Comments:CT adrenal protocol with housfield and wash out measurements; Due:13Dec2017;Ordered; For:Adrenal adenoma; Ordered By:Antoinette Ochoa; 7. QU-CATECHOLAMINES, FRACTION, UPRIGHT, PLASMA 95810; Status:Hold For - Manual Activation; Requested for:[id number]; Perform:[facility]; Due:13Dec2017;Ordered; For:Adrenal adenoma; Ordered By:Antoinette Ochoa; 8. QU-CATECHOLAMINES, FRACTIONATED, AND VMA, 24-HOUR URINE 58426; Status:Hold For - Manual Activation; Requested for:13Nov2017; Perform:[facility]; Due:13Dec2017;Ordered; For:Adrenal adenoma; Ordered By:Antoinette Ochoa; VOLUME: : collectionn 9. QU-METANEPHRINES, FRACT, FREE, LC/MS/MS, PLASMA 64290; Status:Hold For - Manual Activation; Requested for:13Nov2017; Perform:[facility]; Due:13Dec2017;Ordered; For:Adrenal adenoma; Ordered By:Antoinette Ochoa; 10. QU-METANEPHRINES, FRACT. LC/MS/MS, 24 HR URINE 07379; Status:Hold For - Manual Activation; Requested for:13Nov2017; Perform:[facility]; Due:13Dec2017;Ordered; For:Adrenal adenoma; Ordered By:Antoinette Ochoa; 11. Renin Activity; Status:Hold For - Manual Activation; Requested for:[id number]; Perform:[facility]; Due:81Suw7531;Ordered; For:Adrenal adenoma; Ordered By:Antoinette Ochoa; 12. Urine Creatinine 24 Hr; Status:Hold For - Manual Activation; Requested for:[id number]; Perform:[facility]; Due:46Ogi7449;Ordered; For:Adrenal adenoma; Ordered By:Antoinette Ochoa; 13. Urine Free Cortisol 24 Hr; Status:Hold For - Manual Activation; Requested for:92Vkf6907; Perform:[facility]; Due:75Jqt4966;Ordered; For:Adrenal adenoma; Ordered By:Antoinette Ochoa; 14. Albuterol Sulfate (2.5 MG/3ML) 0.083% Inhalation Nebulization Solution Rx By: Keyonna Armstrong; Dispense: 0 Days ; #:1 X 25 x 3 ML Plas Cont; Refill: 0; For: Bronchitis, acute; TEX = N; Sent To: [facility]PHARMACY #2510; Last Updated By: Antoinette Ochoa; 11/13/2017 9:53:48 AM 15. Nebulizer Device Rx By: Keyonna Armstrong; Dispense: 0 Days ; #:1 Each(Device); Refill: 0; For: Bronchitis, acute; TEX = N; Sent To: [facility]ARM[facility]Y #2510; Last Updated By: Antoinette Ochoa; 11/13/2017 9:53:48 AM 16. PredniSONE 20 MG Oral Tablet Rx By: Keyonna Armstrong; Dispense: 0 Days ; #:11 Tablet; Refill: 0; For: Bronchitis, acute; TEX = N; Sent To: [facility]/PHARM[facility]Y #2510; Last Updated By: Antoinette Ochoa; 11/13/2017 9:53:47 AM 17. Ibuprofen 800 MG Oral Tablet Rx By: Royer Hidalgo; Dispense: 10 Days ; #:30 TAB; Refill: 5; For: PMH: Diabetic peripheral neuropathy; TEX = N; Sent To: [facility]ARM[facility]Y #2510; Last Updated By: Antoinette Ochoa; 11/13/2017 9:53:47 AM 18. Benzonatate 100 MG Oral Capsule Rx By: Keyonna Armstrong; Dispense: 8 Days ; #:30 Capsule; Refill: 0; For: PMH: Influenza A; TEX = N; Sent To: [facility]ACY #2510; Last Updated By: Antoinette Ochoa; 11/13/2017 9:53:47 AM 19. Ventolin HFA 108 (90 Base) MCG/ACT Inhalation Aerosol Solution Rx By: Keyonna Armstrong; Dispense: 0 Days ; #:1 X 18 GM Inhaler; Refill: 5; For: Shortness of breath at rest; TEX = N; Sent To: [facility]/PHARMACY #2510; Last Updated By: Antoinette Ochoa; 11/13/2017 9:53:47 AM - labs soon at 8am - 24 h urine collection soon - CT adrenal protocol - follow up in 4 months Discussion/Summary 47 yo F seen today to establish care for a recently found incidentaloma. CT chest on september 27 showed a small 1.4 cm L adrenal nodule. will have to rule out hormone hypersecretion including Keiry, hyperaldosteronism and pheochromocytoma had 24h urine collection that showed a slightly elevated normtanephrines 887 (88-649) and plasma normetanephrine 181(<148) but patient reports being on decongestants shortly before her labs which could have caused a falsely elevated levels her renin was also elevated but she had been recently started in lisinopril will start by recheck baseline ACTH, cortisol levels, aldosterone renin , plasma metanephrine and catecholamines and 24h urine metanephrines catecholamine and cortisol will also order a CT adrenal protocol follow up in 4 months Signatures Electronically signed by : Antoinette Barrios M.D.; Nov 19 2017 11:35AM SPEECH LANGUAGE PATHOLOGIST ASSISTANT (Author) documented in this encounter Plan of Treatment Upcoming Encounters Date Type Department Care Team (Late st Contact Info) Description 07/25/2024 10:00 AM SPEECH LANGUAGE PATHOLOGIST ASSISTANT Office Visit [facility] Family & Internal Medicine - [address] [address] Keyonna Armstrong APNP [address] [place] [address] 07/31/2024 10:15 AM SPEECH LANGUAGE PATHOLOGIST ASSISTANT Office Visit [facility] THREE [facility] [address] [place] [address] Pepe Mitchell MD Three [facility]. [facility] [address] [place] [address] documented as of this encounter Visit Diagnoses Not on filedocumented in this encounter
--- OUTSIDE RECORDS SUMMARY | 2024-07-10 23:01 | XMS_ITS | Encounter Summary ---
Author Organization [facility] Address [address] [place] [address]. [place], [place] [address] [place] [address] Care Team Providers Care Director Database Name Role Phone Unavailable Primary Care Provider Unavailabl e Encounter Details Date Type Department Care Team (Late st Contact Info) Description 09/15/2016 Abstract [facility] Family Medicine [address] [address] Royer Hidalgo MD [address] [facility] [place] [phone] Social History Tobacco Use Types Packs/Day Years Used Date Smoking Tobacco: Never Assessed Comments Unknown Sex and Gender Information Value Date Recorded Sex Assigned at Not on file Legal Sex Female 5:47 PM CDT Gender Identity Female 07/17/2022 10:27 AM BUSHLER Sexual Orientation Straight 07/17/2022 10 :27 AM BUSHLER documented as of this encounter Last Filed Vital Signs Vital Sign Reading Time Taken Comments Blood Pressure 149/95 09/15/2016 11:22 AM BUSHLER Pulse 92 09/15/2016 11:22 AM BUSHLER Temperature - - Respiratory Rate - - Oxygen Saturation - - Inhaled Oxygen Concentration - - Weight 133.7 kg (294 lb 12.8 oz) 2016 11:22 AM BUSHLER Height 167.6 cm (5' 6) 09/15/2016 11:2 2 AM BUSHLER Body Mass Index 47.58 09/15/2016 11:22 AM BUSHLER documented in this encounter Progress Notes * Ryoer Hidalgo MD - 09/15/2016 11:00 AM CST Reason For Visit Reason For Visit: Acute Visit Chief Complaint Pt is complaining of urinary symptoms x 3 months History of Present Illness HPI Free Text: 46-year-old female is here with a 3 to four-month history of urinary symptoms. She has had urinary frequency and urgency. At times, she feels like she has difficulty urinating if her bladder gets toofull. She denies dysuria and hematuria. She has had no vaginal deliveries before. She had a urinalysis in April and again today that was completely normal. She has no history of kidney stones. Active Problems 1. Anxiety (300.00) (F41.9) 2. Constipation (564.00) (K59.00) 3. Depression (311) (F32.9) 4. Esophageal reflux (530.81) (K21.9) 5. History of motion sickness (V13.89) (Z87.898) 6. Hypertension (401.9) (I10) 7. Impaired fasting glucose (790.21) (R73.01) 8. Insomnia (780.52) (G47.00) 9. Morbid obesity (278.01) (E66.01) 10. Need for influenza vaccination (V04.81) (Z23) 11. Need for Tdap vaccination (V06.1) (Z23) 12. Obstructive sleep apnea (327.23) (G47.33) 13. Right ovarian cyst (620.2) (N83.201) 14. Urinary symptom or sign (788.99) (R39.9) Past Medical History 1. Anxiety (300.00) (F41.9) Surgical History 1. History of Gastric Surgery For Morbid Obesity Family History Mother 1. Family history of Hypertension (V17.49) Father 2. Family history of Diabetes Mellitus (V18.0) Maternal Grandmother 3. Family history of Stroke Syndrome (V17.1) Social History ?? Never a smoker Immunizations Influenza --- Series1: 19Jun2012; Series2: 25Apr2016 Tdap --- Series1: [id number] Current Meds 1. Atenolol 50 MG Oral Tablet; TAKE 1 TABLET BY MOUTH TWICE A DAY NEEDED; Therapy: 29Loz3353 to (Evaluate:14Jan2017) Requested for: 42Zou8664; Last Rx:[id number] Ordered Rx By: Royer Hidalgo; Dispense: 90 Days ; #:180 TAB; Refill: 1; For: Hypertension; TEX = N; Verified Transmission to [facility] #2510; Last Updated By: Slidebean; 07/18/2016 10:14:22 AM 2. Enpresse-28 Oral Tablet; TAKE 1 TABLET BY MOUTH EVERY DAY; Therapy: 30May2012 to (Evaluate:91Wmt3732) Requested for: 14Aug2016; Last Rx:14Aug2016 Ordered Rx By: Royer Hidalgo; Dispense: 28 Days ; #:28 TAB; Refill: 2; For: Health Maintenance; TEX = N; Verified Transmission to [facility] #2510; Last Updated By: Slidebean; 08/14/2016 8:13:32 AM 3. HydroCHLOROthiazide 25 MG Oral Tablet; TAKE ONE TABLET BY MOUTH EVERY DAY; Therapy: 20May2012 to (Evaluate:[id number]) Requested for: 29May2016; Last Rx:29May2016 Ordered Rx By: Royer Hidalgo; Dispense: 90 Days ; #:90 TAB; Refill: 1; For: Hypertension; TEX = N; Verified Transmission to [facility] #2510; Last Updated By: Slidebean; 05/29/2016 3:53:02 PM 4. Ibuprofen 800 MG Oral Tablet; TAKE 1 TABLET 3 TIMES DAILY WITH FOOD NEEDED for pain; Therapy: 11Aug2014 to (Evaluate:12May2016) Requested for: 08Xom0740; Last Rx:[id number] Ordered Rx By: Royer Hidalgo; Dispense: 10 Days ; #:30 TAB; Refill: 5; For: PMH: Diabetic peripheral neuropathy; TEX = N; Verified Transmission to [facility] #2510; Last Updated By: Slidebean; 03/13/2016 12:59:22 PM 5. LORazepam 0.5 MG Oral Tablet; TAKE 1 TABLET BY MOUTH 3 TIMES A DAY NEEDED; Therapy: 50Dxf6578 to (Evaluate:23Oct2016) Requested for: 25Jul2016; Last Rx:25Jul2016 Ordered Rx By: Royer Hidalgo; Dispense: 30 Days ; #:90 Tablet; Refill: 2; For: Anxiety, Insomnia; TEX = N; Print Rx 6. MetFORMIN HCl - 500 MG Oral Tablet; TAKE 1 TABLET EVERY MORNING AND THEN TAKE 2 TABLETS AT BEDTIME; Therapy: 24Dec2011 to (Evaluate:15Jul2017) Requested for: 20Jul2016; Last Rx:20Jul2016 Ordered Rx By: Royer Hidalgo; Dispense: 90 Days ; #:270 Tablet; Refill: 3; For: Impaired fasting glucose; TEX= N; Verified Transmission to [facility] #2510; Last Updated By: Slidebean; 07/20/2016 9:28:38 AM 7. Methocarbamol 750 MG Oral Tablet; TAKE 1 TO 2 TABLETS 3 TIMES DAILY NEEDED FOR MUSCLE SPASM; Therapy: 11Aug2014 to (Evaluate:03Apr2016) Requested for: 29Mar2016; Last Rx:29Mar2016 Ordered Rx By: Royer Hidalgo; Dispense: 5 Days ; #:30 Tablet; Refill: 0; For: PMH: Acute low back pain, PMH: Right knee pain; TEX = N; Verified Transmission to [facility] #2510; Last Updated By: Slidebean; 03/29/2016 11:43:11 AM 8. Ondansetron 4 MG Oral Tablet Dispersible; DISSOLVE 1-2 TABLETS ON TONGUE EVERY 8 HOURS NEEDED FOR NAUSEA; Therapy: 02Mar2015 to (Evaluate:19Aug2016) Requested for: 14Aug2016; Last Rx:14Aug2016 Ordered Rx By: Royer Hidalgo; Dispense: 0 Days ; #:30 Tablet Dispersible; Refill: 0; For: Health Maintenance;TEX = N; Verified Transmission to [facility] #2510; Msg to Pharmacy: NEEDS APPT BEFORE ANY MORE REFILLS, THANKS; Last Updated By: Slidebean; 08/14/2016 2:36:24 PM 9. Pantoprazole Sodium 40 MG Oral Tablet Delayed Release; TAKE ONE TABLET BY MOUTH EVERY DAY; Therapy: 08Jun2012 to (Evaluate:15Jun2017) Requested for: 20Jun2016; Last Rx:20Jun2016 Ordered Rx By: Royer Hidalgo; Dispense: 90 Days ; #:90 Tablet Delayed Release; Refill: 3; For: Esophageal reflux; TEX = N; Verified Transmission to [facility] #2510; Last Updated By: Slidebean; 06/20/2016 3:19:07 PM 10. Polyethylene Glycol 3350 Oral Powder; MIX 1 CAPFUL (17GM) IN 8 OUNCES OF WATER, JUICE, OR TEA AND DRINK DAILY; Therapy: 03Jul2014 to (Evaluate:31Jul2016) Requested for: 06Aug2015; Last Rx:06Aug2015 Ordered Rx By: Royer Hidalgo; Dispense: 90 Days ; #:1581 GM; Refill: 3; For: Constipation; TEX = N; Verified Transmission to [facility] #2510; Last Updated By: Slidebean; 08/06/2015 5:36:51 AM 11. Venlafaxine HCl ER 75 MG Oral Capsule Extended Release 24 Hour; TAKE ONE CAPSULE BY MOUTH EVERY MORNING AND TAKE 2 CAPSULES BY MOUTH EVERY EVENING; Therapy: 13May2012 to (Evaluate:15Jul2017) Requested for: 20Jul2016; Last Rx:[id number] Ordered Rx By: Royer Hidalgo; Dispense: 90 Days ; #:270 Capsule Extended Release 24 Hour; Refill: 3; For: Depression; TEX = N; Verified Transmission to [facility] #2510; Last Updated By: Slidebean;07/20/2016 9:29:41 AM 12. Vitamin D3 1000 UNIT Oral Tablet; Therapy: (Recorded:23Sep2013) to Recorded Dispense: 0 Days ; #: Sufficient TABS; Refill: 0; TEX = N; Record; Last Updated By: Marcella Gant; 09/23/2013 10:26:01 AM 13. Zolpidem Tartrate ER 12.5 MG Oral Tablet Extended Release; TAKE 1 TABLET AT BEDTIME NEEDED FOR SLEEP; Therapy: 25Jul2016 to (Evaluate:44Cis5090); Last Rx:25Jul2016 Ordered Rx By: Royer Hidalgo; Dispense: 90 Days ; #:90 Tablet Extended Release; Refill: 1; For: Insomnia; TEX= N; Print Rx Allergies 1. No Known Drug Allergies Updated By: Marcella Gant; 09/23/2013 10:26:01 AM Vitals Recorded: 43Ynp9753 11:22AM Heart Rate 92 Respiration 16 Systolic 149 Diastolic 95 Height 5 ft 6 in Weight 294 lb 12.8 oz BMI Calculated 47.58 BSA Calculated 2.36 Physical Exam Constitutional General appearance: No acute distress, well appearing and well nourished. Pulmonary Respiratory effort: No increased work of breathing or signs of respiratory distress. Auscultation of lungs: Clear to auscultation. Cardiovascular Auscultation of heart: Normal rate and rhythm, normal S1 and S2, without murmurs. Psychiatric Orientation to person, place, and time: Normal. Mood and affect: Normal. Results/Data *Urine dip auto In Office 15Sep2016 11:19AM Royer Hidalgo Test Name Result Flag Reference Color Yellow Clarity Clear Glucose Negative Bilirubin Negative Ketones Negative Specific [place] 1.015 Blood Non Hemolyzed-Trace pH 6.5 5.0 - 7.0 Protein Negative Urobilinogen 0.2 E.U./dL Nitrites NEG Leukocytes Negative Assessment 1. Overactive bladder (596.51) (N32.81) 2. Insomnia (780.52) (G47.00) Plan Insomnia 1. Zolpidem Tartrate ER 12.5 MG Oral Tablet Extended Release Rx By: Royer Hidalgo; Dispense: 90 Days ; #:90 Tablet Extended Release; Refill: 1; For: Insomnia; TEX= N; Print Rx 2. Zolpidem Tartrate 10 MG Oral Tablet; TAKE 1 TABLET AT BEDTIME NEEDED FOR INSOMNIA Rx By: Royer Hidalgo; Dispense: 90 Days ; #:90 Tablet; Refill: 1; For: Insomnia; TEX = N; Print Rx; Msg to Pharmacy: Stop Ambien CR. Discussed 10mg dose with patient, continue therapy. Overactive bladder 3. Tolterodine Tartrate ER 2 MG Oral Capsule Extended Release 24 Hour; Take one capsule daily Rx By: Royer Hidalgo; Dispense: 0 Days ; #:30 Capsule Extended Release 24 Hour; Refill: 5; For: Overactive bladder; TEX = N; Verified Transmission to [facility] #4652; Last Updated By: Nazia Roach; 09/15/2016 11:33:59 AM Urinary symptom or sign 4. *Urine dip auto In Office; Status:Resulted - Requires Verification; Done: 15Sep2016 11:19AM Performed:In Office; Last Updated By:Carlotta Salcedo; 09/15/2016 11:21:27 AM;Ordered; For:Urinary symptom or sign; Ordered By:Royer Hidalgo; Discussion/Summary #1 Urinary symptoms: I will have the patient try Detrol for possible OAB. I will consider increasing the dose to 4 mg in 3-4 weeks if she is not had any improvement in her symptoms. If her symptoms persist, we will also consider urologic evaluation. #2 Chronic insomnia: The patient has not had a good response to Ambien CR. She would like to go back to plain Ambien. We talked about the use of Ambien long- term. She does not have any confusion or sleepwalking on this medication. She is a little fall risk. She is currently taking a higher than recommended dose based on recent FDA guidelines of 5 mg daily for women. She has had chronic long-term insomnia and understands the risks of being on a 10 mg dose. 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 Followup as needed. Signatures Electronically signed by : Royer Hidalgo M.D.; Sep 15 2016 12:30PM BUSHLER (Author) documented in this encounter Plan of Treatment Upcoming Encounters Date Type Department Care Team (Late st Contact Info) Description 07/25/2024 10:00 AM BUSHLER Office Visit [facility] Family & Internal Medicine - [address] [address] Keyonna Armstrong APNP [address] [place] [address] 07/31/2024 10:15 AM BUSHLER Office Visit [facility] [address] [facility], [facility] [address] [place], [place] [address] Pepe Mitchell MD [facility]. [facility] [address] [place] [address] documented as of this encounter Procedures Procedure Name Priority Date/Time Associated Diagnosis Comments URINALYSIS WI REFLEX TO CULTURE Routine 09/15/2016 5:48 PM BUSHLER URINALYSIS AUTO DIP Routine 09/15/2016 1 1:19 AM BUSHLER documented in this encounter Results * URINALYSIS WI REFLEX TO CULTURE (09/15/2016 5:48 PM BUSHLER) SPECIMEN TYPE URINE CLEAN CATCH [facility] TO EPIC CONVERSION COLOR (U) YELLOW [facility] T O EPIC CONVERSION TRANSPARENCY CLOUDY [facility] P TO EPIC CONVERSION SPECIFIC GRAVITY (U) 1.013 1.001 - 1.030 [facility] TO EPIC CONVERSION U PH 6.0 5.0 - 9.0 [facility] T O EPIC CONVERSION LEUKOCYTES (U) NEGATIVE NEG [facility] OUP TO EPIC CONVERSION NITRITES NEGATIVE NEG [facility] T O EPIC CONVERSION PROTEIN (U) NEGATIVE <30 MG/DL [facility] TO EPIC CONVERSION GLUCOSE NEGATIVE NEG MG/DL [facility] T O EPIC CONVERSION KETONES MG/DL (U) NEGATIVE NEG MG/DL [facility] TO EPIC CONVERSION UROBILINOGEN NEGATIVE NEG MG/DL [facility] P TO EPIC CONVERSION BILIRUBIN (U) NEGATIVE NEG MG/DL [facility] UP TO EPIC CONVERSION BLOOD (U) NEGATIVE NEG [facility] T O EPIC CONVERSION REFLEX URINE CULTURE: CULTURE IS NOT INDICATED [facility] TO EPIC CONVERSION SQUAMOUS EPITHELIALS MODERATE /LPF [facility] TO EPIC CONVERSION RBC/HPF 2 <6 /HPF [facility] T O EPIC CONVERSION WBC <1 <6 /HPF [facility] T O EPIC CONVERSION MUCUS RARE /LPF [facility] T O EPIC CONVERSION 09/15/2016 5:48 PM BUSHLER 09/15/2016 5:48 PM BUSHLER Narrative [facility] TO EPIC CONVERSION - 09/15/2016 9:05 PM BUSHLER Result Communication: No patient communication needed at this time Royer Hidalgo MD URINE ORDERABLES Final Result [facility] TO EPIC CONVERSION * URINALYSIS AUTO DIP (09/15/2016 11:19 AM BUSHLER) COLOR (U) Yellow [facility] T O EPIC CONVERSION TRANSPARENCY Clear [facility] P TO EPIC CONVERSION GLUCOSE Negative [facility] T O EPIC CONVERSION BILIRUBIN (U) Negative [facility] UP TO EPIC CONVERSION KETONE (U) Negative [facility] TO EPIC CONVERSION SPECIFIC GRAVITY (U) 1.015 [facility] TO EPIC CONVERSION BLOOD (U) Non Hemolyzed-Tr kelly [facility] TO EPIC CONVERSION PH (U) 6.5 5.0 - 7.0 [facility] T O EPIC CONVERSION PROTEIN (ELP) (U) Negative [facility] TO EPIC CONVERSION UROBILINOGEN 0.2 E.U./dL [facility] OUP TO EPIC CONVERSION NITRITES NEG [facility] T O EPIC CONVERSION LEUKOCYTES (U) Negative [facility] OUP TO EPIC CONVERSION 09/15/2016 11:1 9 AM BUSHLER 09/15/2016 11:19 AM BUSHLER Narrative [facility] TO EPIC CONVERSION - 09/15/2016 11:19 AM BUSHLER Result Communication: No patient communication needed at this time us Royer Hidalgo MD URINE ORDERABLES Final Result [facility] TO EPIC CONVERSION documented in this encounter Visit Diagnoses Not on filedocumented in this encounter
--- OUTSIDE RECORDS SUMMARY | 2024-07-10 23:01 | XMS_ITS | Encounter Summary ---
Author Organization [facility] Address [address] [place] [address]. [place], [place] [address] [place] [id number] Care Team Providers Care Hoop Maker Helper Machine Name Role Phone Royer Hidalgo MD Primary Care Provider [phone] Encounter Details Date Type Department Care Team (Late st Contact Info) Description 04/25/[address] [facility] [place] [address] Royer Hidalgo MD [address] 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[employer] Sexual Orientation Straight 07/17/2022 10 :27 AM TECHNIC[employer] documented as of this encounter Plan of Treatment Upcoming Encounters Date Type Department Care Team (Late st Contact Info) Description 07/25/2024 10:00 AM TECHNIC[employer] Office Visit [facility] Family & Internal Medicine - [place] [address] [place] [address] Keyonna Armstrong APNP [address] [place] [address] 07/31/2024 10:15 AM TECHNIC[employer] Office Visit [facility], [address] [address] Pepe Mitchell MD [facility] [address] [place] [address] documented as of this encounter Procedures Procedure Name Priority Date/Time Associated Diagnosis Comments TSH W/REFLEX Routine 04/25/2016 11:50 AM CDT HEMOGLOBIN, GLYCOSYLATED Routine 04/25/2016 11:50 AM CDT COMPREHENSIVE METABOLIC PANEL Routine 04/25/2016 11:50 AM CDT LIPID PANEL Routine 04/25/2016 11:50 AM CDT CBC W/DIFF AUTOMATED Routine 04/25/2016 11:50 AM CDT documented in this encounter Results * TSH W/REFLEX (SNS) (04/25/2016 11:50 AM CDT) TSH 1.21 0.27 - 4.20 mIU/mL 04/25/2016 10:36 PM CDT [facility] Comment:FREE T4 NOT INDICATE D SERUM OR PLASMA SPECIMEN / Unknown 04/25/2016 11:50 AM CDT 04/25/2016 9:53 PM CDT us Generic Conversion Md [facility] Final R esult [facility] [address] [place] [address], * (ABNORMAL) LIPID PANEL (04/25/2016 11:50 AM CDT) CHOLESTEROL 163 <200 MG/DL 04/25/2016 10:36 PM CDT [facility] Comment: NOTE: Acetaminophen, N Acetyl p benzoquinone imine (NAPQI), N acetylcysteine (NAC), Metamizole, 4 Aminoantipyrine (4 AAP) and 4 Methylamino antipyrine (4 MAP) at high concentrations can cause falsely low results on Lactate, Uric Acid, Cholesterol, Triglyceride, HDL, and Direct LDL. TRIGLYCERIDES 217(H) <150 MG/DL 04/25/2016 10:36 PM [facility] HDL 43(L) >59 MG/DL 04/25/2016 10:36 PM [facility] LDL (CALCULATED) 77 <100 MG/DL 04/25/2016 10:36 PM [facility] NON HDL CHOLESTEROL 120 <130 MG/DL 04/25/2016 10:36 PM T [facility] Comment: NOTE: WHEN THE TRIGLYCERIDES ARE >200 mg/dL, NON HDL C IS A SECONDARY TARGET OF THERAPY, WITH A GOAL 30 mg/dL HIGHER THAN THE IDENTIFIED LDL C GOAL. CHOL/HDL RATIO 3.8 0.0 - 4.5 04/25/2016 10:36 PM [facility] VLDL CALCULATION 43 5 - 55 MG/DL 04/25/2016 10:36 PM [facility] LIPID INTERPRETATION 04/25/2016 10:36 PM [facility] Comment: NIH CONCENSUS REPORT RECOMMENDATIONS: ?ADULT ?CHILD ??LOW RISK: ?CHOLESTEROL ? <200 ? <170 ?TRIGLYCERIDE ?<150 ?--- ?HDL ? >=60 ?--- ?LDL ? <100 ? <110 ??BORDERLINE: ?CHOLESTEROL ? 200-239 ?? 170-199 ?TRIGLYCERIDE ?150-199 ? --- ?HDL ?40-59 ?--- ?LDL ? 100-159 ?? 110-129 ??HIGH RISK: ?CHOLESTEROL ? >=240 ?>=200 ?TRIGLYCERIDE ?>=200 ? --- ?HDL ?<40 ?--- ?LDL ? >=160 ?>=130 04/25/2016 11:5 0 AM CDT 04/25/2016 9:53 PM CDT us Generic Conversion Md [facility] Final R esult [facility] [address] [place] [address], * (ABNORMAL) COMPREHENSIVE METABOLIC PANEL (04/25/2016 11:50 AM CDT) GLUCOSE 89 70 - 99 mg/dL 04/25/2016 10:36 PM CDT [facility] BUN 10 8 - 23 mg/dL 04/25/2016 10:36 PM CDT [facility] CREATININE S/P/B 0.74 0.60 - 1.10 mg/dL 04/25/2016 10:36 PM CDT [facility] SODIUM S/P/B 134(L) 136 - 145 mmol/L 04/25/2016 10:36 PM CDT [facility] POTASSIUM S/P/B 4.6 3.5 - 5.1 mmol/L 04/25/2016 10:36 PM CDT [facility] CHLORIDE S/P/B 93(L) 98 - 107 mmol/L 04/25/2016 10:36 PM CDT [facility] CO2 26 22 - 29 mmol/L 04/25/2016 10:36 PM CDT [facility] BILIRUBIN TOTAL S/P/B 0.3 0.2 - 1.2 mg/dL 04/25/2016 10:36 PM CDT [facility] CALCIUM S/P/B 9.8 8.6 - 10.2 mg/dL 04/25/2016 10:36 PM CDT [facility] ALKALINE PHOSPHATASE S/P/B 74 35 - 104 U/L 04/25/2016 10:36 PM CDT [facility] AST 16 0 - 32 U/L 04/25/2016 10:36 PM CDT [facility] TOTAL PROTEIN S/P/B 7.4 6.4 - 8.3 g/dL 04/25/2016 10:36 PM CDT [facility] ALBUMIN S/P/B 4.4 3.5 - 5.2 g/dL 04/25/2016 10:36 PM CDT [facility] ALT 15 0 - 33 U/L 04/25/2016 10:36 PM CDT [facility] GLOBULIN 3.0 2.3 - 3.6 g/dL 04/25/2016 10:36 PM CDT [facility] A/G RATIO 1.5 1.0 - 2.0 04/25/2016 10:36 PM CDT [facility] ANION GAP 20 8 - 20 04/25/2016 10:36 PM CDT [facility] EGFR NON-AFR. AMER. >60 >60 mL/min/1.7 3m'2 04/25/2016 10:36 PM CDT [facility] EGFR AFR. AMER. >60 >60 mL/min/1.7 3m'2 04/25/2016 10:36 PM CDT [facility] Comment: NOTE: eGFR is not calculated for patients <18 years of age. This is an estimated GFR (CKD EPI) and should not be used for calculating drug doses. 04/25/2016 11:5 0 AM CDT 04/25/2016 9:53 PM CDT us Generic Conversion Md [facility] Final R esult [facility] [address] [place] [address], * (ABNORMAL) CBC W/DIFF AUTOMATED (04/25/2016 11:50 AM CDT) WBC 12.1(H) 4.8 - 10.8 X10'3/uL 04/25/2016 9:56 PM CDT [facility] RBC 4.88 4.20 - 5.40 X10'6/uL 04/25/2016 9:56 PM CDT [facility] HGB 15.1 12.0 - 16.0 g/dL 04/25/2016 9:56 PM CDT [facility] HCT 47.1 38.0 - 48.0 % 04/25/2016 9:56 PM CDT [facility] MCV 96.5 81.0 - 99.0 fL 04/25/2016 9:56 PM CDT [facility] MCH 30.9 27.0 - 31.0 pg 04/25/2016 9:56 PM CDT [facility] MCHC 32.1 32.0 - 36.0 g/dL 04/25/2016 9:56 PM CDT [facility] RDW 13.8 11.5 - 14.5 % 04/25/2016 9:56 PM CDT [facility] PLT 336 130 - 400 X10'3/uL 04/25/2016 9:56 PM CDT [facility] MPV 10.4 9.3 - 12.2 fL 04/25/2016 9:56 PM CDT [facility] DIFFERENTIAL TYPE AUTOMATED 04/25/2016 9:56 PM CDT [facility] NEUTROPHILS % 63.7 43.0 - 65.0 % 04/25/2016 9:56 PM CDT [facility] LYMPHOCYTES % 26.3 20.0 - 46.0 % 04/25/2016 9:56 PM CDT [facility] MONOCYTES % 8.5 5.0 - 12.0 % 04/25/2016 9:56 PM CDT [facility] EOSINOPHILS 0.7(L) 1.0 - 3.0 % 04/25/2016 9:56 PM CDT [facility] BASOPHILS 0.6 0.0 - 1.0 % 04/25/2016 9:56 PM CDT [facility] IMMATURE GRANS % 0.2 0.0 - 1.0 % 04/25/2016 9:56 PM CDT [facility] 04/25/2016 11:5 0 AM CDT 04/25/2016 9:53 PM CDT us Generic Conversion Md [facility] Final R esult [facility] [address] [place] [address], * HEMOGLOBIN, GLYCOSYLATED (04/25/2016 11:50 AM CDT) HGB A1C 5.3 4.8 - 5.6 % 04/25/2016 10:10 PM CDT [facility] Comment: ADA GUIDELINES 2010 5.7 TO 6.4% INCREASED RISK OF DIABETES > OR = 6.5% CONSISTENT WITH DIABETES ESTIMATED AVG GLUCOSE 105 mg/dL 04/25/2016 10:10 PM CDT [facility] 04/25/2016 11:5 0 AM CDT 04/25/2016 9:53 PM CDT us Generic Conversion Md [facility] Final R esult [facility] [address] [place] [address], documented in this encounter Visit Diagnoses Diagnosis Encounter for general adult medical examination without abnormal findings Unspecified general medical examination documented in this encounter Care Teams Hoop Maker Helper Machine Relationship Specialty Start Date End Date Royer Hidalgo MD PCP - General 04/25/16 09/14/16 documented as of this encounter
--- OUTSIDE RECORDS SUMMARY | 2024-07-10 23:01 | XMS_ITS | Encounter Summary ---
Author Organization [facility] Address [facility]6 [facility] [place], [place] [id number] [place] [address] Care Team Providers Care Absorption Plant Operator Helper Name Role Phone Unavailable Primary Care Provider Unavailabl e Encounter Details Date Type Department Care Team (Latest Contact Info) Description 10/19/2017 Abstract [facility] Keyonna Armstrong APNP [address] [place] [address] Social History Tobacco Use Types Packs/Day Years Used Date Smoking Tobacco: Never Assessed Comments Unknown Sex and Gender Information Value Date Recorded Sex Assigned at Not on file Legal Sex Female 5:47 PM CDT Gender Identity Female 07/17/2022 10:27 AM COST ANALYST Sexual Orientation Straight 07/17/2022 10 :27 AM COST ANALYST documented as of this encounter Plan of Treatment Upcoming Encounters Date Type Department Care Team (Late st Contact Info) Description 07/25/2024 10:00 AM COST ANALYST Office Visit [facility] Medical [facility] Family & Internal Medicine - [place] [address] [place] [address] Keyonna Armstrong APNP [address] [place] [address] 07/31/2024 10:15 AM COST ANALYST Office Visit [facility], [facility] [address] [place], [place] [address] Pepe Mitchell MD [facility]. [facility] [address] [place], [place] [id number] documented as of this encounter Procedures Procedure Name Priority Date/Time Associated Diagnosis Comments CATECHOLAMINES URINE 24 HR Routine 10/19/2017 11:46 AM CDT METANEPHRINES URINE 24 HR Routine 10/19/2017 11:46 AM CDT documented in this encounter Results * (ABNORMAL) CATECHOLAMINES URINE 24 HR (10/19/2017 11:46 AM CDT) VOLUME (U) 3000 mL [facility] TO EPIC CONVERSION EPINEPHRINE (U) 24HR see note [facility] TO EPIC CONVERSION Comment: Result Comment: Results are below the reportable range for this analyte, which is 2.0 mcg/L. This test was developed and its analytical performance characteristics have been determined by [place]. It has not been cleared or approved by the U.S. Food and Drug Administration. This assay has been validated pursuant to the CLIA regulations and is used for clinical purposes. NORMETANEPHRINE (U) 24 HRS 125(H) 15 - 100 mcg/24 h [facility] TO EPIC CONVERSION Comment: Result Comment: ?? This test was developed and its analytical performance characteristics have been determined by [place]. It has not been cleared or approved by the U.S. Food and Drug Administration. This assay has been validated pursuant to the CLIA regulations and is used for clinical purposes. TOTAL E+ NE (U) 125(H) 26 - 121 mcg/24 h [facility] TO EPIC CONVERSION Comment: Result Comment: ?? This test was developed and its analytical performance characteristics have been determined by [place]. It has not been cleared or approved by the U.S. Food and Drug Administration. This assay has been validated pursuant to the CLIA regulations and is used for clinical purposes. DOPAMINE URINE/24H 399 52 - 480 mcg/24 h [facility] TO EPIC CONVERSION Comment: Result Comment: ?? This test was developed and its analytical performance characteristics have been determined by [place]. It has not been cleared or approved by the U.S. Food and Drug Administration. This assay has been validated pursuant to the CLIA regulations and is used for clinical purposes. CREATININE 24 HR UR (QST) 1.96 0.63 - 2.50 g/24 h [facility] TO EPIC CONVERSION Comment: Result Comment: ?? REPORT COMMENT: SPLIT 10/17/2017 FROM [id number] Test Performed at: [facility] [address] ? LYDIA ALDANA MD,PHD 10/19/2017 11:4 6 AM CDT 10/19/2017 11:46 AM CDT Narrative [facility] TO EPIC CONVERSION - 10/25/2017 4:00 PM CDT Result Communication: Call patient with results Keyonna HILTON URINE ORDERABLES Final Resu lt [facility] TO EPIC CONVERSION * (ABNORMAL) METANEPHRINES URINE 24 HR (10/19/2017 11:46 AM CDT) VOLUME (U) 3000 mL [facility] TO EPIC CONVERSION METANEPHRINE (U) 24 HR 123 58 - 203 mcg/24 h [facility] TO EPIC CONVERSION Comment: Result Comment: ?? This test was developed and its analytical performance characteristics have been determined by [facility] [place]. It has not been cleared or approved by the U.S. Food and Drug Administration. This assay has been validated pursuant to the CLIA regulations and is used for clinical purposes. NORMETANEPHRINE (U) 24 HRS 887(H) 88 - 649 mcg/24 h [facility] TO EPIC CONVERSION Comment: Result Comment: ?? This test was developed and its analytical performance characteristics have been determined by [facility] [place]. It has not been cleared or approved by the U.S. Food and Drug Administration. This assay has been validated pursuant to the CLIA regulations and is used for clinical purposes. METANEPHRINE (U) 24 HR 1010(H) 182 - 739 mcg/24 h [facility] TO EPIC CONVERSION Comment: Result Comment: ?? A four fold elevation of urinary normetanephrines is extremely likely to be due to a tumor, while a four fold elevation of urinary metanephrines is highly suggestive, but not diagnostic of the tumor. Measurement of plasma Metanephrines and Chromogranin A is recommended for confirmation. Test Performed at: [facility] ? LYDIA ALDANA MD,PHD 10/19/2017 11:4 6 AM CDT 10/19/2017 11:46 AM CDT Narrative [facility] TO EPIC CONVERSION - 10/25/2017 4:00 PM CDT Result Communication: Call patient with results us Keyonna HILTON URINE ORDERABLES Final Resu lt [facility] TO EPIC CONVERSION documented in this encounter Visit Diagnoses Not on filedocumented in this encounter
--- OUTSIDE RECORDS SUMMARY | 2024-07-10 23:01 | XMS_ITS | Encounter Summary ---
Author Organization [facility] Address [address] [place] [address]. [place], [place] [id number] [place] [address] Care Team Providers Care Honing Machine Operator Semiautomatic Name Role Phone Unavailable Primary Care Provider Unavailabl e Encounter Details Date Type Department Care Team (Latest Contact Info) Description 01/17/2018 Abstract [facility] Medical Group Charline Thurman FNP [address] [place] [address] Social History Tobacco Use Types Packs/Day Years Used Date Smoking Tobacco: Never Assessed Comments Unknown Sex and Gender Information Value Date Recorded Sex Assigned at Not on file Legal Sex Female 5:47 PM CDT Gender Identity Female 07/17/2022 10:27 AM PROFILER Sexual Orientation Straight 07/17/2022 10 :27 AM PROFILER documented as of this encounter Plan of Treatment Upcoming Encounters Date Type Department Care Team (Late st Contact Info) Description 07/25/2024 10:00 AM PROFILER Office Visit [facility] Medical [facility] Family & Internal Medicine - [place] [address] [place] [address] Keyonna Armstrong APNP [address] [place] [address] 07/31/2024 10:15 AM PROFILER Office Visit [facility], [facility] [address] [place] [address] Pepe Mitchell MD [facility]. [facility] [address] [place], [place] [id number] documented as of this encounter Procedures Procedure Name Priority Date/Time Associated Diagnosis Comments DRUG SCREEN, GENERAL TOX, URINE Routine 01/17/2018 2:33 PM CDT DRUG SCREEN, GENERAL TOX, URINE Routine 01/17/2018 2:33 PM CDT documented in this encounter Results * (ABNORMAL) DRUG SCREEN, GENERAL TOX, URINE (01/17/2018 2:33 PM CDT) Pathologist [facility] PRESCRIBED DRUG 1 (U) Lorazepam [facility] TO EPIC CONVERSION CREATININE S/P/B 54.4 > or = 20.0 mg/dL [facility] TO EPIC CONVERSION pH PM (U) 6.69 4.5 - 9.0 [facility] TO EPIC CONVERSION OXIDANT NEGATIVE <200 mcg/mL [facility] TO EPIC CONVERSION AMPHETAMINES PM NEGATIVE <500 ng/mL [facility] TO EPIC CONVERSION AMPHETAMINES PM MEDMATCH (U) CONSISTENT [facility] TO EPIC CONVERSION BARBITURATES S/P/B NEGATIVE <300 ng/mL [facility] TO EPIC CONVERSION BARBITURATES PM MM (U) CONSISTENT [facility] TO EPIC CONVERSION BENZODIAZEPINES PM (U) POSITIVE(A) <100 ng/mL [facility] TO EPIC CONVERSION MARIJUANA METABOLITE PM (U) NEGATIVE <20 ng/mL [facility] TO EPIC CONVERSION MARIJUANA METABOLITE PM MM (U) CONSISTENT [facility] TO EPIC CONVERSION COCAINE METABOLITE PM (U) NEGATIVE <150 ng/mL [facility] TO EPIC CONVERSION COCAINE METABOLITE PM MEDMATCH (U) CONSISTENT [facility] TO EPIC CONVERSION METHADONE PM (U) NEGATIVE <100 ng/mL [facility] TO EPIC CONVERSION METHADONE PM [facility] CONSISTENT [facility] TO EPIC CONVERSION OPIATES PM (U) NEGATIVE <100 ng/mL [facility] TO EPIC CONVERSION OPIATES PM MEDMATCH (U) CONSISTENT [facility] TO EPIC CONVERSION OXYCODONE PM (U) NEGATIVE <100 ng/mL [facility] TO EPIC CONVERSION OXYCODONE PM [facility] CONSISTENT [facility] TO EPIC CONVERSION Comment: SEE NOTE [facility] T O EPIC CONVERSION Comment: Result Comment: This drug testing is for medical treatment only. ?? Analysis was performed as non-forensic testing and these results should be used only by healthcare providers to render diagnosis or treatment, or to monitor progress of medical conditions. medMATCH comments are: - present when drug test results may be the result of ?? metabolism of one or more drugs or when results are ?? inconsistent with prescribed medication(s) listed. - may be blank when drug results are consistent with ?? prescribed medication(s) listed. For assistance with interpreting these drug results, please contact a [facility] T[facility]ology Specialist: [phone] ( ), M-F, 8am-6pm EST. Test Performed at: [facility] [address] ??[id number] ? IAM CASTELLON,PHD ALCOHOL METABOLITES (U) NEGATIVE <500 ng/mL [facility] TO EPIC CONVERSION ALCOHOL METABOLITES (U) CONSISTENT [facility] TO EPIC CONVERSION 6 ACETYLMORPHINE (U) NEGATIVE <10 ng/mL [facility] TO EPIC CONVERSION HEROIN METABOLITE MM (U) CONSISTENT [facility] TO EPIC CONVERSION ALPHAHYDROXYALPRAZOLAM PM (U) NEGATIVE <25 ng/mL [facility] TO EPIC CONVERSION ALPHAHYDROXYALPRAZOLAM PM MEDMATCH (U) CONSISTENT [facility] TO EPIC CONVERSION MIDAZOLAM PM (U) NEGATIVE <50 ng/mL [facility] TO EPIC CONVERSION MIDAZOLAM PM MEDMATCH (U) CONSISTENT [facility] TO EPIC CONVERSION ALPHAHYDROXYTRIAZOLAM PM (U) NEGATIVE <50 ng/mL [facility] TO EPIC CONVERSION ALPHAHYDROXYTRIAZOLAM PM MEDMATCH CONSISTENT [facility] TO EPIC CONVERSION AMINOCLONAZEPAM PM (U) NEGATIVE <25 ng/mL [facility] TO EPIC CONVERSION AMINOCLONAZEPAM PM MM (U) CONSISTENT [facility] TO EPIC CONVERSION OH ET FLURAZEPAM PM (U) NEGATIVE <50 ng/mL [facility] TO EPIC CONVERSION OH ET FLURAZEPAM PM MEDMATCH (U) CONSISTENT [facility] TO EPIC CONVERSION LORAZEPAM PM (U) 310(H) <50 ng/mL [facility] TO EPIC CONVERSION LORAZEPAM PM MEDMATCH (U) CONSISTENT [facility] TO EPIC CONVERSION NORDIAZEPAM PM (U) NEGATIVE <50 ng/mL [facility] TO EPIC CONVERSION NORDIAZEPAM PM MM (U) CONSISTENT [facility] TO EPIC CONVERSION OXAZEPAM PM (U) NEGATIVE <50 ng/mL [facility] TO EPIC CONVERSION OXAZEPAM PM MEDMATCH (U) CONSISTENT [facility] TO EPIC CONVERSION TEMAZEPAM PM NEGATIVE <50 ng/mL [facility] TO EPIC CONVERSION TEMAZEPAM PM MEDMATCH (U) CONSISTENT [facility] TO EPIC CONVERSION 01/17/2018 2:33 PM CDT 01/17/2018 2:33 PM CDT Narrative [facility] TO EPIC CONVERSION - 01/26/2018 8:00 AM CDT Result Communication: No patient communication needed at this time Charline MORENOP URINE ORDERABLES Final Result Performing Organization Address City/[facility]/ZIP Co de Phone Number [facility] TO EPIC CONVERSION * (ABNORMAL) DRUG SCREEN, GENERAL TOX, URINE (01/17/2018 2:33 PM CDT) ZOLPIDEM (U) 9(H) <5 ng/mL [facility] P TO EPIC CONVERSION ZOLPIDEM METABOLITE 142(H) <5 ng/mL [facility] TO EPIC CONVERSION COMMENT SEE NOTE [facility] T O EPIC CONVERSION Comment: Result Comment: This drug testing is for medical treatment only. ?? Analysis was performed as non-forensic testing and these results should be used only by healthcare providers to render diagnosis or treatment, or to monitor progress of medical conditions. For assistance with interpreting these drug results, please contact a [facility] T[facility] Specialist: [phone] ( ), M-F, 8am-6pm EST. Test Performed at: [facility] [address] ??[id number] ? IAM CASTELLON,PHD 01/17/2018 2:33 PM CDT 01/17/2018 2:33 PM CDT Narrative [facility] TO EPIC CONVERSION - 01/26/2018 8:00 AM CDT Result Communication: No patient communication needed at this time Charline Wileykayden LOW VOLTAGE ELECTRICIAN URINE ORDERABLES Final Result [facility] TO EPIC CONVERSION documented in this encounter Visit Diagnoses Not on filedocumented in this encounter
--- OUTSIDE RECORDS SUMMARY | 2024-07-10 23:02 | XMS_ITS | Encounter Summary ---
Author Organization [facility] Address [facility]6 [facility]. [place], [place] [address] [place] [address] Care Team Providers Care Bisque Ware Dipper Name Role Phone Royer Hidalgo MD Primary Care Provider [phone] Royer Hidalgo MD Primary Care Provider [phone] Priyanka Zepeda MD Primary Care Provider Unavailab le Encounter Details Date Type Department Care Team (Latest Contact Info) Description 12/03/2013 Abstract [facility] Medical Group Social History Tobacco Use Types Packs/Day Years Used Date Smoking Tobacco: Never Assessed Comments Unknown Sex and Gender Information Value Date Recorded Sex Assigned at Not on file Legal Sex Female 5:47 PM CDT Gender Identity Female 07/17/2022 10:27 AM REFINERY OPERATOR COKING Sexual Orientation Straight 07/17/2022 10 :27 AM REFINERY OPERATOR COKING documented as of this encounter Plan of Treatment Upcoming Encounters Date Type Department Care Team (Late st Contact Info) Description 07/25/2024 10:00 AM REFINERY OPERATOR COKING Office Visit [facility] Medical Group Family & Internal Medicine [facility] [address] [place] [address] Keyonna Armstrong APNP [address] [place] [address] 07/31/2024 10:15 AM REFINERY OPERATOR COKING Office Visit [facility] [address] [place], [place] [phone] Pepe Mitchell MD [facility]. [facility] [address] [place], [place] [phone] documented as of this encounter Visit Diagnoses Not on filedocumented in this encounter Care Teams Bisque Ware Dipper Relationship Specialty Start Date End Date Royer Hidalgo MD PCP - General 04/25/16 09/14/16 Royer Hidalgo MD PCP - General 05/14/15 04/24/16 Priyanka Zepeda MD PCP - General 04/22/13 05/13/15 documented as of this encounter
--- OUTSIDE RECORDS SUMMARY | 2024-07-10 23:02 | XMS_ITS | Encounter Summary ---
Author Organization [facility] Address [address] [place] [address]. [place], [place] [address] [place] [address] Care Team Providers Care Car Ferry Captain Name Role Phone Royer Hidalgo MD Primary Care Provider [phone] Royer Hidalgo MD Primary Care Provider [phone] Priyanka Zepeda MD Primary Care Provider Unavailab le Encounter Details Date Type Department Care Team (Late st Contact Info) Description 02/12/2015 Abstract [facility] Family Medicine - [address] [address] Royer Hidalgo MD [address] [place] [place] [address] Social History Tobacco Use Types Packs/Day Years Used Date Smoking Tobacco: Never Assessed Comments Unknown Sex and Gender Information Value Date Recorded Sex Assigned at Not on file Legal Sex Female 5:47 PM CDT Gender Identity Female 07/17/2022 10:27 AM HOSPICE CARE SALES CONSULTANT Sexual Orientation Straight 07/17/2022 10 :27 AM HOSPICE CARE SALES CONSULTANT documented as of this encounter Last Filed Vital Signs Vital Sign Reading Time Taken Comments Blood Pressure 139/89 02/12/2015 10:05 AM CDT Pulse 110 02/12/2015 10:05 AM CDT Temperature - - Respiratory Rate - - Oxygen Saturation - - Inhaled Oxygen Concentration - - Weight 131.3 kg (289 lb 6.4 oz) 015 10:05 AM CDT Height 167.6 cm (5' 6) 02/12/2015 10:0 5 AM CDT Body Mass Index 46.71 02/12/2015 10:05 AM CDT documented in this encounter Progress Notes * Royer Hidalgo MD - 02/12/2015 10:00 AM CDT Reason For Visit Chronic Recheck Visit Chief Complaint Routine follow up History of Present Illness HPI Free Text: History of present illness: 44-year-old female is here for followup on multiple chronic issues as noted below: #1 Type 2 diabetes: The patient is tolerating metformin well without side effects. Her A1c has beenvery well controlled in the past, usually under 6. It's possible that she may fall into the prediabetic range without medications. She does not have any symptoms consistent with hyperglycemia and shedenies numbness/pain in her legs/feet. #2 Hypertension: Patient is tolerating atenolol and hydrochlorothiazide well without side effects. She denies headache, dizziness, shortness breath no chest pain, and leg swelling. She is a nonsmoker. She does not exercise on a regular basis. #3 Anxiety/depression: The patient is currently taking Effexor, total dose of 225 mg per day. She has had some increased depressive and anxiety symptoms with irritability and increased insomnia. She denies SI/HI. She is not having any side effects to Effexor. She is hoping to increase her dose of lorazepam today. She takes 0-2 tablets per day depending on how she is feeling. #4 Chronic insomnia: The patient has a very long history of chronic insomnia and she sleeps approximately 4-5 hours per night. She has tried multiple medications in the past as noted in her medication record. At this point, she is taking Ambien only. Sometimes, she will take an extra dose of lorazepam at night which seems to help. REVIEW OF SYSTEMS Constitutional: Negative. Cardiovascular: Negative. Respiratory: Negative. Gastrointestinal: Negative. Genitourinary: Negative. Psychiatric: See history of present illness. Endocrine: Negative. PHYSICAL EXAM GEN: NAD, well-appearing and well-nourished. HEAD/FACE: Normal to inspection. NECK Neck: Supple, trachea midline, and no masses, JVD, or LAD. Thyroid: No nodules or TM. PULM Respiratory Effort: No increased work of breathing, retractions, or signs of distress. Auscultation of Lungs: Clear to auscultation without wheezes, rhonchi, or decreased BS. CV Auscultation: Normal rate and rhythm. NL S1/S2 without M/R/G. Pedal Pulses: 2+ bilaterally. Extremities: No edema or varicosities. Psychiatric: Normal mood and affect. Assessment/plan: #1 Depression/anxiety: Continue venlafaxine at 225 mg each day. She may take all of this at one time since she is on the extended release formulation. Discussed lifestyle modifications to help relieve stress and increased physical activity. After a discussion regarding the risks of chronic benzodiazepine use, I will increase the patient's dose of lorazepam. She may take 0-3 tablets per day as needed, so I will give her 90 pills per month at most but she should try and avoid taking all 3 tabletsevery day. #2 Chronic insomnia: Continue Ambien. Discussed sleep hygiene techniques. #3 Type 2 diabetes: Due for labs in 6 months. Continue metformin, when she is due for refills I will switch her to the extended release formulation and she may take all 3 tablets in the morning with breakfast. #4 Hypertension: Well controlled. Continue atenolol and hydrochlorothiazide. All in 6 months with fasting labs prior, sooner if needed. Active Problems 1. Acute low back pain (724.2) (M54.5) 2. Anxiety (300.00) (F41.9) 3. Callus (700) (L84) 4. Constipation (564.00) (K59.00) 5. Depression (311) (F32.9) 6. Diabetic peripheral neuropathy (250.60,357.2) (E13.42,G62.9) 7. Esophageal reflux (530.81) (K21.9) 8. History of motion sickness (V13.89) (Z87.898) 9. Hypertension (401.9) (I10) 10. Insomnia (780.52) (G47.00) 11. Morbid obesity (278.01) (E66.01) 12. Obstructive sleep apnea (327.23) (G47.33) 13. Paronychia of finger (681.02) (L03.019) 14. Right knee pain (719.46) (M25.561) 15. Type 2 diabetes mellitus (250.00) (E11.9) Past [...] BY MOUTH TWICE A DAY NEEDED; Therapy: 94Zuz5347 to (Evaluate:09Jun2015) Requested for: 52Btl1200; Last Rx:88Gnl0517 Ordered 2. Enpresse-28 Oral Tablet; TAKE 1 TABLET BY MOUTH EVERY DAY; Therapy: 30May2012 to (Evaluate:23Yrt9695) Requested for: 14Ecp8838; Last Rx:[id number] Ordered 3. Hydrochlorothiazide 25 MG Oral Tablet; TAKE ONE TABLET BY MOUTH EVERY DAY; Therapy: 20May2012 to (Evaluate:06Fds8519) Requested for: 28Dec2014; Last Rx:28Dec2014 Ordered 4. Ibuprofen 800 MG Oral Tablet; TAKE 1 TABLET 3 TIMES DAILY WITH FOOD NEEDED for pain; Therapy: 11Aug2014 to (Evaluate:10Oct2014) Requested for: 11Aug2014; Last Rx:11Aug2014 Ordered 5. LORazepam 0.5 MG Oral Tablet; TAKE 1 TABLET BY MOUTH TWICE A DAY NEEDED; Therapy: 17Aox7185 to (Evaluate:12Cyo3416) Requested for: 19Jan2015; Last Rx:12Iud0991; Status: ACTIVE - Renewal Denied Ordered 6. MetFORMIN HCl - 500 MG Oral Tablet; TAKE 1 TABLET EVERY MORNING AND THEN TAKE 2 TABLETS AT BEDTIME; Therapy: 24Dec2011 to (Evaluate:65Bbm7249) Requested for: 93Bvw0453; Last Rx:84Nhj7318 Ordered 7. Methocarbamol 750 MG Oral Tablet; TAKE 1 TO 2 TABLETS 3 TIMES DAILY NEEDED FOR MUSCLE SPASM; Therapy: 11Aug2014 to (Evaluate:91Mhm3350) Requested for: 41Ktt2172; Last Rx:64Tpe6132 Ordered 8. Multivitamins TABS; Therapy: (Recorded:23Sep2013) to Recorded 9. Pantoprazole Sodium 40 MG Oral Tablet Delayed Release; TAKE ONE TABLET BY MOUTH EVERY DAY; Therapy: 08Jun2012 to (Evaluate:24Dec2015) Requested for: 29Dec2014; Last Rx:29Dec2014 Ordered 10. Polyethylene Glycol 3350 Oral Powder; MIX 1 CAPFUL (17GM) IN 8 OUNCES OF WATER, JUICE, OR TEA AND DRINK DAILY; Therapy: 45Rru0630 to (Evaluate:45Mck7211) Requested for: 37Rit2344; Last Rx:05Xzk8196 Ordered 11. Venlafaxine HCl ER 75 MG Oral Capsule Extended Release 24 Hour; TAKE ONE CAPSULE BY MOUTH EVERY MORNING AND 2 CAPSULES EVERY EVENING; Therapy: 13May2012 to (Evaluate:29Apr2015) Requested for: 81Hkk9979; Last Rx:91Omg5272 Ordered 12. Vitamin D3 1000 UNIT Oral Tablet; Therapy: (Recorded:23Sep2013) to Recorded 13. Zolpidem Tartrate 10 MG Oral Tablet; TAKE 1 TABLET AT BEDTIME NEEDED FOR SLEEP; Therapy: 18Dec2014 to (Evaluate:18Feb2015) Requested for: 19Jan2015; Last Rx:19Jan2015 Ordered Allergies 1. No Known Drug Allergies Immunizations Influenza --- Series1: 19Jun2012 Vitals Recorded: 12Feb2015 10:05AM Heart Rate 110 Respiration 16 Systolic 139 Diastolic 89 Height 5 ft 6 in Weight 289 lb 6.4 oz BMI Calculated 46.71 BSA Calculated 2.34 Assessment 1. Hypertension (401.9) (I10) 2. Type 2 diabetes mellitus (250.00) (E11.9) 3. Anxiety (300.00) (F41.9) 4. Insomnia (780.52) (G47.00) 5. Depression (311) (F32.9) Plan Anxiety, Insomnia 1. From LORazepam 0.5 MG Oral Tablet TAKE 1 TABLET BY MOUTH TWICE A DAY NEEDED To LORazepam 0.5 MG Oral Tablet TAKE 1 TABLET BY MOUTH THREE TIMES A DAY NEEDED Rx By: Royer Hidalgo; Dispense: 30 Days ; #:90 Tablet; Refill: 0; For: Anxiety, Insomnia; TEX = N; Print Rx Called into [facility] - /tjt Called into [facility] - /tjt Called into [facility] /tjt Called in to [facility] /tjt Called in to [facility] - LM /tjt Depression 2. From Venlafaxine HCl ER 75 MG Oral Capsule Extended Release 24 Hour TAKE ONE CAPSULE BY MOUTH EVERY MORNING AND 2 CAPSULES EVERY EVENING To Venlafaxine HCl ER 75 MG Oral Capsule Extended Release 24 Hour TAKE 3 CAPSULES EACH NIGHT Rx By: Royer Hidalgo; Dispense: 0 Days ; #:90 Capsule Extended Release 24 Hour; Refill: 5; For: Depression; TEX = N; Record Hypertension, Type 2 diabetes mellitus 3. *A1C In Office; Status:Hold For - Exact Date; Requested for:Approx 15Aug2015; Perform:In Office; Due:51Unz8574;Ordered; For:Hypertension, Type 2 diabetes mellitus; Ordered By:Royer Hidalgo; 4. CBC W Differential; Status:Hold For - Exact Date,Manual Activation; Requested for:Approx 15Aug2015; [facility]; Due:79Lgc1375;Ordered; For:Hypertension, Type 2 diabetes mellitus; Ordered By:Royer Hidalgo; 5. Compr Metabolic Prof ( CMP ); Status:Hold For - Exact Date,Manual Activation; Requested for:Approx 15Aug2015; Perform:[facility]; Due:08Kbh0917;Ordered; For:Hypertension, Type 2 diabetes mellitus; Ordered By:Royer Hidalgo; 6. Lipid W Reflex DLDL; Status:Hold For - Exact Date,Manual Activation; Requested for:Approx 15Aug2015; Perform:[facility]; Due:52Yfq3682;Ordered; For:Hypertension, Type 2 diabetes mellitus; Ordered By:Royer Hidalgo; 7. TSH W Reflex Free T4; Status:Hold For - Exact Date,Manual Activation; Requested for:Approx 15Aug2015; Perform:[facility]; Due:57Xhe0145;Ordered; For:Hypertension, Type 2 diabetes mellitus; Ordered By:Royer Hidalgo; Type 2 diabetes mellitus 8. MetFORMIN HCl - 500 MG Oral Tablet Rx By: Royer Hidalgo; Dispense: 90 Days ; #:90 TAB; Refill: 0; For: Type 2 diabetes mellitus; TEX = N; Sent To: [id number] 9. MetFORMIN HCl ER 500 MG Oral Tablet Extended Release 24 Hour; TAKE 3 TABLETS EVERY MORNING WITH BREAKFAST Rx By: Royer Hidalgo; Dispense: 0 Days ; #:90 Tablet Extended Release 24 Hour; Refill: 5; For: Type 2diabetes mellitus; TEX = N; Record Signatures Electronically signed by : Royer Hidalgo M.D.; Feb 12 2015 12:34PM HOSPICE CARE SALES CONSULTANT (Author) documented in this encounter Plan of Treatment Upcoming Encounters Date Type Department Care Team (Late st Contact Info) Description 07/25/2024 10:00 AM HOSPICE CARE SALES CONSULTANT Office Visit [facility] Family & Internal Medicine - [address] [address] Keyonna Armstrong APNP [address] [place] [address] 07/31/2024 10:15 AM HOSPICE CARE SALES CONSULTANT Office Visit [facility], [facility] [address] [place] [address] Pepe Mitchell MD Three [facility]. [facility] [address] [place], [place] [id number] documented as of this encounter Visit Diagnoses Not on filedocumented in this encounter Care Teams Car Ferry Captain Relationship Specialty Start Date End Date Royer Hidalgo MD PCP - General 04/25/16 09/14/16 Royer Hidalgo MD PCP - General 05/14/15 04/24/16 Priyanka Zepeda MD PCP - General 04/22/13 05/13/15 documented as of this encounter
--- OUTSIDE RECORDS SUMMARY | 2024-07-10 23:02 | XMS_ITS | Encounter Summary ---
Author Organization [facility] Address [address] [place] [address]. [place], [place] [address] [place] [address] Care Team Providers Care Explosive Operator Supervisor Name Role Phone Roeyr Hidalgo MD Primary Care Provider [phone] Royer Hidalgo MD Primary Care Provider [phone] Priyanka Zepeda MD Primary Care Provider Unavailab le Encounter Details Date Type Department Care Team (Late st Contact Info) Description 09/25/2013 Abstract [facility] Family Medicine - [address] [phone] Royer Hidalgo MD [address] [facility] [place] [address] Social History Tobacco Use Types Packs/Day Years Used Date Smoking Tobacco: Never Assessed Comments Unknown Sex and Gender Information Value Date Recorded Sex Assigned at Not on file Legal Sex Female 5:47 PM CDT Gender Identity Female 07/17/2022 10:27 AM TOWNSHIP CLERK Sexual Orientation Straight 07/17/2022 10 :27 AM TOWNSHIP CLERK documented as of this encounter Last Filed Vital Signs Vital Sign Reading Time Taken Comments Blood Pressure 134/87 09/25/2013 2:00 PM TOWNSHIP CLERK Pulse 89 09/25/2013 2:00 PM TOWNSHIP CLERK Temperature - - Respiratory Rate - - Oxygen Saturation - - Inhaled Oxygen Concentration - - Weight 138.3 kg (305 lb) 09/25/2013 2:00 PM TOWNSHIP CLERK Height 167.6 cm (5' 6) 09/25/2013 2:00 PM TOWNSHIP CLERK Body Mass Index 49.23 09/25/2013 2:00 PM TOWNSHIP CLERK documented in this encounter Progress Notes * Royer Hidalgo MD - 09/25/2013 2:00 PM CST Reason For Visit Reason For Visit: Acute Follow-Up Visit Chief Complaint 1. Finger Problem Chief Complaint Free Text: C/o infection in left ring finger x 4 days History of Present Illness HPI Free Text: This 43-year-old female presents with a 4 to five-day history of progressively worsening redness, pain, and swelling on the ulnar border of her left ring finger. She denies fevers and chills. She denies numbness in the finger. She has never had anything like this before. PHYSICAL EXAM GEN: NAD, well-appearing and well-nourished. SKIN The patient has redness, fluctuance, and exquisite tenderness at the ulnar border of her left fourth fingernail. There is no drainage. There is no redness extending up into the finger. Active Problems 1. Anxiety (300.00) (F41.9) 2. Callus (700) (L84) 3. Depression (311) (F32.9) 4. Diabetic peripheral neuropathy (250.60,357.2) (E13.42,G62.9) 5. Esophageal reflux (530.81) (K21.9) 6. Hypertension (401.9) (I10) 7. Insomnia (780.52) (G47.00) 8. Morbid obesity (278.01) (E66.01) 9. Obstructive sleep apnea (327.23) (G47.33) 10. Type 2 diabetes mellitus (250.00) (E11.9) Past Medical History 1. Anxiety (300.00) (F41.9) Surgical History 1. History of Gastric Surgery For Morbid Obesity Family History 1. Family history of Hypertension (V17.49) 2. Family history of Diabetes Mellitus (V18.0) 3. Family history of Stroke Syndrome (V17.1) Social History ?? Never a smoker Current Meds 1. Amitriptyline HCl - 25 MG Oral Tablet; TAKE ONE TABLET BY MOUTH DAILY AT BEDTIME; Therapy: 13Xde0070 to (Evaluate:04Fix4477) Requested for: 89Ypq6206; Last Rx:11Kin6661 Ordered Rx By: Darrell Hopson; Dispense: 30 Days ; #:30 Tablet; Refill: 11; For: Insomnia; TEX = N; Verified Transmission to [facility]2510; Last Updated By: Demetra Delcid; 07/18/2013 8:17:54 AM 2. Enpresse-28 Oral Tablet; TAKE 1 TABLET DAILY DIRECTED; Therapy: 30May2012 to (Evaluate:22Dec2013) Requested for: 09Jun2013; Last Rx:09Jun2013 Ordered Rx By: Priyanka Zepeda; Dispense: 28 Days ; #:1 X 28 EA Disp Pack; Refill: 6; For: Health Maintenance;TEX = N; Verified Transmission to [facility]2510; Last Updated By: Demetra Delcid; 06/09/2013 9:48:23 AM 3. Gas Relief CAPS; Therapy: (Recorded:23Sep2013) to Recorded Dispense: 0 Days ; #: Sufficient CAPS; Refill: 0; TEX = N; Record; Last Updated By: Marcella Gant; 09/23/2013 10:26:01 AM 4. Hydrochlorothiazide 25 MG Oral Tablet; TAKE ONE TABLET BY MOUTH EVERY DAY; Therapy: 20May2012 to (Evaluate:20Mar2014) Requested for: 25Mar2013; Last Rx:25Mar2013 Ordered Rx By: Priyanka Zepeda; Dispense: 90 Days ; #:90 Tablet; Refill: 3; For: Hypertension; TEX = N; Verified Transmission to [facility]2510; Last Updated By: Demetra Delcid; 03/25/2013 2:02:14 PM 5. LORazepam 0.5 MG Oral Tablet; TAKE 1 TABLET BY MOUTH TWICE DAILY; Therapy: 90Yoo2819 to (Evaluate:09Oct2013) Requested for: 09Sep2013; Last Rx:09Sep2013 Ordered Rx By: Darrell Hopson; Dispense: 30 Days ; #:60 Tablet; Refill: 0; For: Anxiety, Insomnia; TEX = N; Print Rx; Last Updated By: Nazia Roach; 09/09/2013 8:02:40 AM 6. MetFORMIN HCl - 500 MG Oral Tablet; Therapy: 24Dec2011 to Recorded Dispense: 90 Days ; #:255 TABS; Refill: 0; TEX = N; Record; Last Updated By: Demetra Delcid; 06/19/2012 10:19:48 AM 7. Multivitamins TABS; Therapy: (Recorded:23Sep2013) to Recorded Dispense: 0 Days ; #: Sufficient TABS; Refill: 0; TEX = N; Record; Last Updated By: Marcella Gant; 09/23/2013 10:26:01 AM 8. Pantoprazole Sodium 40 MG Oral Tablet Delayed Release; TAKE ONE TABLET BY MOUTH EVERY DAY; Therapy: 08Jun2012 to (Evaluate:34Ipt7520) Requested for: 16Jun2013; Last Rx:16Jun2013 Ordered Rx By: Priyanka Zepeda; Dispense: 0 Days ; #:30 Tablet Delayed Release; Refill: 6; For: Esophageal reflux; TEX = N; Verified Transmission to [facility]2510; Last Updated By: Demetra Delcid; 06/16/2013 8:41:31 AM 9. Venlafaxine HCl ER 75 MG Oral Capsule Extended Release 24 Hour; Take 1 capsule in am and 2 capsule in evening; Therapy: 13May2012 to (Evaluate:13Aug2014) Requested for: 18Aug2013; Last Rx:18Aug2013 Ordered Rx By: Darrell Hopson; Dispense: 90 Days ; #:270 Capsule Extended Release 24 Hour; Refill: 3; For:Depression; TEX = N; [facility]; Last Updated By: Fartun Omalley; 08/18/2013 4:27:48 PM 10. Vitamin D3 1000 UNIT Oral Tablet; Therapy: (Recorded:23Sep2013) to Recorded Dispense: 0 Days ; #: Sufficient TABS; Refill: 0; TEX = N; Record; Last Updated By: Marcella Gant; 09/23/2013 10:26:01 AM 11. Zolpidem Tartrate 10 MG Oral Tablet (Ambien); TAKE 1 TABLET AT BEDTIME NEEDED FOR INSOMNIA; Therapy: 23Sep2013 to (Evaluate:44Lls3094); Last Rx:23Sep2013 Ordered Rx By: Royer Hidalgo; Dispense: 90 Days ; #:90 Tablet; Refill: 1; For: Insomnia; TEX = N; Print Rx Allergies 1. No Known Drug Allergies Updated By: Marcella Gant; 09/23/2013 10:26:01 AM Immunizations Influenza --- Series1: 91Sqz5314 Vitals Vital Signs [Data Includes: Current Encounter] Recorded by : Marcella Gant at 25Sep2013 02:00PM Heart Rate 89 Respiration 16 Systolic 134 Diastolic 87 O2 Saturation 98 Height 5 ft 6 in Weight 305 lb BMI Calculated 49.23 BSA Calculated 2.39 Procedure PROCEDURE: Incision and Drainage Incision and Drainage of an abscess located on the (Paronychia Left 4th Finger Ulnar Nail Border) Extremities Head/Neck Trunk. Risks, benefits and alternatives were discussed with the patient. Written consent was obtained prior to the procedure and can be found in the patients record. The site was prepped with Betadine. The area was anesthetized with <1 ml of lidocaine 1% withoutepinephrine. The area was incised with a #11 blade. A small amount of fluid was drained. Dressing: a sterile dressing was placed. The patient tolerated the procedure well. There were no complications. Wound care instructions were given to the patient. Washing with soap and water, gently pat dry. Follow-up in the office. As needed. Assessment 1. Paronychia of finger (681.02) (L03.019) Plan 1. Start: Sulfamethoxazole-TMP DS 800-160 MG Oral Tablet; TAKE 1 TABLET TWICE DAILY UNTIL FINISHED Rx By: Royer Hidalgo; Dispense: 7 Days ; #:14 Tablet; Refill: 0; For: Paronychia of finger; TEX = N; Send To: [facility]2138 Discussion/Summary Discussion Summary Free Text: Paronychia drained as noted above. Bactrim DS twice daily x7 days. Bacitracin ointment twice daily and gently wash wound with soap and water. Followup as needed, especially if increasing pain or redness. Signatures Electronically signed by : Royer Hidalgo M.D.; Sep 25 2013 2:38PM TOWNSHIP CLERK (Author) SHIP CLERK documented in this encounter Plan of Treatment Upcoming Encounters Date Type Department Care Team (Late st Contact Info) Description 07/25/2024 10:00 AM TOWNSHIP CLERK Office Visit [facility] Family & Internal Medicine [address] [address] Keyonna Armstrong APNP [address] [place] [address] 07/31/2024 10:15 AM TOWNSHIP CLERK Office Visit [facility], [facility] [address] [place] [address] Pepe Mitchell MD Three [facility]. [facility] [address] [place] [address] documented as of this encounter Visit Diagnoses Not on filedocumented in this encounter Care Teams Explosive Operator Supervisor Relationship Specialty Start Date End Date Royer Hidalgo MD PCP - General 04/25/16 09/14/16 Royer Hidalgo MD PCP - General 05/14/15 04/24/16 Priyanka Zepeda MD PCP - General 04/22/13 05/13/15 documented as of this encounter
--- OUTSIDE RECORDS SUMMARY | 2024-07-10 23:02 | XMS_ITS | Encounter Summary ---
Author Organization [facility] Address [address] [place] [address]. [place], [place] [address] [place] [address] Care Team Providers Care Ocean Forwarder Name Role Phone Royer Hidalgo MD Primary Care Provider [phone] Royer Hidalgo MD Primary Care Provider [phone] Priyanka Zepeda MD Primary Care Provider Unavailab le Encounter Details Date Type Department Care Team (Latest Contact Info) Description 08/14/2014 Abstract [facility] Social History Tobacco Use Types Packs/Day Years Used Date Smoking Tobacco: Never Assessed Comments Unknown Sex and Gender Information Value Date Recorded Sex Assigned at Not on file Legal Sex Female 5:47 PM CDT Gender Identity Female 07/17/2022 10:27 AM EDGE BRUSHER Sexual Orientation Straight 07/17/2022 10 :27 AM EDGE BRUSHER documented as of this encounter Progress Notes * Generic Conversion MD Marti - 08/14/2014 2:07 PM CST Message Recorded as Task Date: 08/14/2014 09:16 AM, Created By: Bri Ruiz Task Name: Call Back Assigned To: Anupama Maddox Regarding Patient: Veronica Evangelista, Status: Active Comment: Bri Ruiz - 14 Aug 2014 9:16 AM TASK CREATED Caller: Self; Results Inquiry; Pt. called wanting her xray results from and would like a call back Message: Spoke to pt about xray results, mostly normal other than some early arthritis. She will keep an eye on it and let us know if she continues to have problems. Signatures Electronically signed by : Anupama Maddox, ; Aug 14 2014 2:08PM EDGE BRUSHER (Author) documented in this encounter Plan of Treatment Upcoming Encounters Date Type Department Care Team (Late st Contact Info) Description 07/25/2024 10:00 AM EDGE BRUSHER Office Visit [facility] Family & Internal Medicine - [place] [address] [place] [address] Keyonna Armstrong APNP [address] [place] [address] 07/31/2024 10:15 AM EDGE BRUSHER Office Visit [facility], [facility] [address] [place] [address] Pepe Mitchell MD Three [facility]. [facility] [address] [place], [place] [id number] documented as of this encounter Visit Diagnoses Not on filedocumented in this encounter Care Teams Ocean Forwarder Relationship Specialty Start Date End Date Royer Hidalgo MD PCP - General 04/25/16 09/14/16 Royer Hidalgo MD PCP - General 05/14/15 04/24/16 Priyanka Zepeda MD PCP - General 04/22/13 05/13/15 documented as of this encounter
--- OUTSIDE RECORDS SUMMARY | 2024-07-10 23:02 | XMS_ITS | Encounter Summary ---
Author Organization [facility] Address [address] [place] [address]. [place], [place] [id number] [place] [id number] Care Team Providers Care Front Office Director Name Role Phone Royer Hidalgo MD Primary Care Provider [phone] Royer Hidalgo MD Primary Care Provider [phone] Encounter Details Date Type Department Care Team (Late st Contact Info) Description 05/14/2015 Abstract [facility] Family Medicine - [address] [address] Royer Hidalgo MD [address] [place] [address] Social History Tobacco Use Types Packs/Day Years Used Date Smoking Tobacco: Never Assessed Comments Unknown Sex and Gender Information Value Date Recorded Sex Assigned at Not on file Legal Sex Female 5:47 PM CDT Gender Identity Female 07/17/2022 10:27 AM CLAIMS AUDITOR Sexual Orientation Straight 07/17/2022 10 :27 AM CLAIMS AUDITOR documented as of this encounter Last Filed Vital Signs Vital Sign Reading Time Taken Comments Blood Pressure 141/92 05/14/2015 1:06 PM CDT Pulse 118 05/14/2015 1:06 PM CDT Temperature - - Respiratory Rate - - Oxygen Saturation - - Inhaled Oxygen Concentration - - Weight 133.4 kg (294 lb 1.6 oz) 05/14/2015 1:06 PM CDT Height - - Body Mass Index 47.47 02/12/2015 10:05 AM CDT documented in this encounter Progress Notes * Royer Hidalgo MD - 05/14/2015 1:00 PM CDT Reason For Visit Reason For Visit: Acute Visit Chief Complaint Pt hurt her tail bone back in Feb and still having pain--TINO Maguire AAS History of Present Illness HPI Free Text: 44 yo female here for two new issues: 1. Pain in tailbone: Approx 2-3 mos ago, pt fell backward onto her tailbone. Has had pain ever since. Always a mild amount of pain, but sometimes more moderate. Increases in pain usually triggered byprolonged sitting. Does not seem to be improving. 2. Persistent nausea: Pt reports 2-3 mo hx of persistent nausea. Pt is on OCPs. She stopped for about 1-2 mos. When she restarted her OCP, that is when the nausea seemed to start. Periods have been normal. Around the same time, she also started taking 3 pills of metformin at one time instead of 1 in AM and 2 in PM. She was supposed to get an ER pill, but may be taking the regualr one. No vomiting. No change in BM. No abdominal pain. Review of Systems Constitutional: Normal. Cardiovascular: Normal. Respiratory: Normal. Genitourinary: Normal. Neurological: Normal. Active Problems 1. Acute low back pain (724.2) (M54.5) 2. Anxiety (300.00) (F41.9) 3. Callus (700) (L84) 4. Constipation (564.00) (K59.00) 5. Depression (311) (F32.9) 6. Diabetic peripheral neuropathy (250.60,357.2) (E11.42) 7. Esophageal reflux (530.81) (K21.9) 8. History [...] Never a smoker Immunizations Influenza --- Series1: 19Jun2012 Current Meds 1. Atenolol 50 MG Oral Tablet; TAKE 1 TABLET BY MOUTH TWICE A DAY NEEDED; Therapy: 45Val9593 to (Evaluate:09Jun2015) Requested for: 96Rbn1619; Last Rx:[id number] Ordered Rx By: Royer Hidalgo; Dispense: 90 Days ; #:180 TAB; Refill: 1; For: Hypertension; TEX = N; Verified Transmission to [facility] #25[facility]; Last Updated By: Pump!; 12/11/2014 1:12:41 PM 2. Enpresse-28 Oral Tablet; TAKE 1 TABLET BY MOUTH EVERY DAY; Therapy: 30May2012 to (Evaluate:08Jun2015) Requested for: 53Tta7557; Last Rx:[id number] Ordered Rx By: Royer Hidalgo; Dispense: 28 Days ; #:28 TAB; Refill: 2; For: Health Maintenance; TEX = N; Verified Transmission to [facility] #2510; Last Updated By: Pump!; 03/16/2015 7:36:35 AM 3. Hydrochlorothiazide 25 MG Oral Tablet; TAKE ONE TABLET BY MOUTH EVERY DAY; Therapy: 20May2012 to (Evaluate:68Jzc6894) Requested for: 28Dec2014; Last Rx:[id number] Ordered Rx By: Royer Hidalgo; Dispense: 90 Days ; #:90 TAB; Refill: 1; For: Hypertension; TEX = N; Verified Transmission to [facility] #2510; Last Updated By: Pump!; 12/28/2014 9:15:19 AM 4. Ibuprofen 800 MG Oral Tablet; TAKE 1 TABLET 3 TIMES DAILY WITH FOOD NEEDED for pain; Therapy: 11Aug2014 to (Evaluate:10Oct2014) Requested for: 11Aug2014; Last Rx:[id number] Ordered Rx By: Royer Hidalgo; Dispense: 10 Days ; #:30 Tablet; Refill: 5; For: Right knee pain; TEX = N; Verified Transmission to [facility] #2510; Last Updated By: Pump!; 08/11/2014 3:34:30 PM 5. LORazepam 0.5 MG Oral Tablet; TAKE 1 TABLET BY MOUTH 3 TIMES A DAY NEEDED; Therapy: 84Iaj3685 to (Evaluate:16May2015) Requested for: 13May2015; Last Rx:[id number]; Status: ACTIVE - Renewal Denied Ordered Rx By: Royer Hidalgo; Dispense: 30 Days ; #:90 Tablet; Refill: 0; For: Anxiety, Insomnia; TEX = N; Record; Last Updated By: Pump!; 05/14/2015 1:31:42 PM 6. MetFORMIN HCl - 500 MG Oral Tablet; TAKE 1 TABLET EVERY MORNING AND THEN TAKE 2 TABLETS AT BEDTIME; Therapy: 24Dec2011 to (Evaluate:60Zvo2960) Requested for: 01Mar2015; Last Rx:01Mar2015 Ordered Rx By: Royer Hidalgo; Dispense: 30 Days ; #:90 TAB; Refill: 5; For: Type 2 diabetes mellitus; TEX = N; Verified Transmission to [facility]ARMACY #2510; Last Updated By: Pump!; 03/01/2015 1:00:31 PM 7. MetFORMIN HCl ER 500 MG Oral Tablet Extended Release 24 Hour; TAKE 3 TABLETS EVERY MORNING WITH BREAKFAST; Therapy: 83Isa7134 to (Last Rx:[id number]) Ordered Rx By: Royer Hidalgo; Dispense: 0 Days ; #:90 Tablet Extended Release 24 Hour; Refill: 5; For: Type 2diabetes mellitus; TEX = N; Record 8. Methocarbamol 750 MG Oral Tablet; TAKE 1 TO 2 TABLETS 3 TIMES DAILY NEEDED FOR MUSCLE SPASM; Therapy: 11Aug2014 to (Evaluate:18May2015) Requested for: 13May2015; Last Rx:13May2015 Ordered Rx By: Royer Hidalgo; Dispense: 5 Days ; #:30 TAB; Refill: 0; For: Acute low back pain, Right knee pain; TEX = N; Verified Transmission to [facility] #2510; Last Updated By: Pump!; 05/13/2015 9:41:47 AM 9. Multivitamins TABS; Therapy: (Recorded:23Sep2013) to Recorded Dispense: 0 Days ; #: Sufficient TABS; Refill: 0; TEX = N; Record; Last Updated By: Marcella Gant; 09/23/2013 10:26:01 AM 10. Ondansetron 4 MG Oral Tablet Dispersible; DISSOLVE 1-2 TABLET UNDER TONGUE EVERY 8 HOURS NEEDED FOR NAUSEA; Therapy: 02Mar2015 to (Evaluate:01Gud4031) Requested for: 02Mar2015; Last Rx:02Mar2015 Ordered Rx By: Royer Hidalgo; Dispense: 30 Days ; #:15 Tablet Dispersible; Refill: 0; For: Health Maintenance; TEX = N; Faxed To: [facility]/PHARMACY #2510; Last Updated By: Pump!; 03/02/2015 2:45:00 PM 11. Pantoprazole Sodium 40 MG Oral Tablet Delayed Release; TAKE ONE TABLET BY MOUTH EVERY DAY; Therapy: 08Jun2012 to (Evaluate:24Dec2015) Requested for: 29Dec2014; Last Rx:29Dec2014 Ordered Rx By: Royer Hidalgo; Dispense: 30 Days ; #:30 TAB; Refill: 11; For: Esophageal reflux; TEX = N; Verified Transmission to [facility] #2510; Last Updated By: Pump!; 12/29/2014 7:40:50 AM 12. Polyethylene Glycol 3350 Oral Powder; MIX 1 CAPFUL (17GM) IN 8 OUNCES OF WATER, JUICE, OR TEA AND DRINK DAILY; Therapy: 59Mmp4571 to (Evaluate:35Plr2913) Requested for: 84Ycr3559; Last Rx:[id number] Ordered Rx By: Royer Hidalgo; Dispense: 90 Days ; #:3 X 527 GM Bottle; Refill: 3; For: Constipation; TEX = N;Verified Transmission to [facility] #2510; Last Updated By: Pump!; 07/03/2014 12:05:53 PM 13. Venlafaxine HCl ER 75 MG Oral Capsule Extended Release 24 Hour; TAKE ONE CAPSULE BY MOUTH EVERY MORNING AND TAKE 2 CAPSULES BY MOUTH EVERY EVENING; Therapy: 13May2012 to (Evaluate:13Pej5941) Requested for: 01Mar2015; Last Rx:01Mar2015 Ordered Rx By: Royer Hidalgo; Dispense: 30 Days ; #:90 Capsule; Refill: 5; For: Depression; TEX = N; VerifiedTransmission to [facility] #2510; Last Updated By: Pump!; 03/01/2015 1:00:32 PM 14. Vitamin D3 1000 UNIT Oral Tablet; Therapy: (Recorded:23Sep2013) to Recorded Dispense: 0 Days ; #: Sufficient TABS; Refill: 0; TEX = N; Record; Last Updated By: Marcella Gant; 09/23/2013 10:26:01 AM 15. Zolpidem Tartrate 10 MG Oral Tablet; TAKE 1 TABLET BY MOUTH AT BEDTIME NEEDED FOR SLEEP; Therapy: 18Dec2014 to (Evaluate:18May2015) Requested for: 13May2015; Last Rx:[id number]; Status: ACTIVE - Renewal Denied Ordered Rx By: Royer Hidalgo; Dispense: 30 Days ; #:30 TAB; Refill: 2; For: Insomnia; TEX = N; Print Rx; LastUpdated By: Pump!; 05/14/2015 1:31:42 PM Allergies 1. No Known Drug Allergies Updated By: Marcella Gant; 09/23/2013 10:26:01 AM Vitals Recorded: 14May2015 01:06PM Temperature 98.3 F Heart Rate 118 Respiration 16 Systolic 141 Diastolic 92 O2 Saturation 94 Weight 294 lb 1.6 oz BMI Calculated 47.47 BSA Calculated 2.36 Physical Exam Constitutional General appearance: No acute distress, well appearing and well nourished. Eyes Conjunctiva and lids: No swelling, erythema or discharge. Pupils and irises: Equal, round and reactive to light. Ears, Nose, Mouth, and Throat Oropharynx: Normal with no erythema, edema, exudate or lesions. Pulmonary Respiratory effort: No increased work of breathing or signs of respiratory distress. Auscultation of lungs: Clear to auscultation. Cardiovascular Auscultation of heart: Normal rate and rhythm, normal S1 and S2, without murmurs. Abdomen Abdomen: Non-tender, no masses. Liver and spleen: No hepatomegaly or splenomegaly. Lymphatic Palpation of lymph nodes in neck: No lymphadenopathy. Musculoskeletal Gait and station: Normal. Inspection/palpation of joints, bones, and muscles: Normal. No TTP in sacral area. Results/Data XY Sacrum Coccyx 2+ View NC 14May2015 02:41PM Royer Hidalgo Test Name Result Flag Reference XY Sacrum Coccyx 2+ View NC (Report) [facility] [address] [place] [address] Name: Veronica Evangelista Ordering MD: Royer Hidalgo Order Number: [id number] : 1970 Sex: F Performing Location: [facility] Procedure Code: Procedure: XY Sacrum Coccyx 2+ View NC Examination: Sacrum and coccyx. Exam time: 1334 hours. Clinical history: Injury February 2015. Persistent tailbone pain. Comparison: None. Technique: 3 views of the sacrum and coccyx were obtained. Findings: No plain film evidence of acute fracture or dislocation. There are degenerative changes with disc space narrowing partially visualized in the lower lumbar spine, particularly at the level L4-L5. IMPRESSION: 1. No plain film evidence of acute fracture or dislocation involving the sacrum/coccyx. 2. Degenerative changes lower lumbar spine. Electronically Signed By: JOCELINE MARIA MD 05/14/15 144 Dictated On: 05/14/15 144 Interpreted By: JOCELINE MARIA MD Pacs Image Result Radiology image is available. Click on Image Link above. Compr Metabolic Prof ( CMP ) 14May2015 01:30PM Royer Hidalgo Test Name Result Flag Reference Sodium (Na) 144 mmol/L 136-145 Potassium (K) 3.9 mmol/L 3.5-5.1 Chloride (Cl) 106 mmol/L 98-107 Carbon Dioxide (CO2) 24 mmol/L 22-29 Anion Gap 18 8-20 Blood Urea Nitrogen (BUN) 15 mg/dL 8-23 Creatinine 0.69 mg/dL 0.60-1.10 Glomerular Filt Rate Calc >60 mL/min/1.73m'2 >60 Glomerular Filt Rate (AA) Calc >60 >60 NOTE: eGFR is not calculated for patients <18 years of age. This is an estimated GFR (CKD EPI) and should not be used for calculating drug doses. mL/min/1.73m'2 Glucose 95 mg/dL 70-99 Calcium 9.4 mg/dL 8.6-10.2 Total Bilirubin 0.2 mg/dL 0.2-1.2 AST/GOT 18 IU/L 0-32 ALT/GPT 16 IU/L 0-33 Alkaline Phosphatase (ALKP) 72 IU/L 35-104 Total Protein 7.1 g/dL 6.4-8.3 Albumin 4.0 g/dL 3.5-5.2 Globulin, Calc 3.1 g/dL 2.3-3.6 A:G Ratio 1.3 1.0-2.0 CBC W Differential 14May2015 01:30PM Royer Hidalgo Test Name Result Flag Reference White Blood Cell Count (WBC) 12.5 X10'3/uL H 4.8-10.8 Red Blood Cell Count (RBC) 4.76 X10'6/uL 4.20-5.40 Hemoglobin (HGB) 14.7 g/dL 12.0-16.0 Hematocrit (HCT) 46.0 % 38.0-48.0 Mean Corpuscular Volume (MCV) 96.6 fL 81.0-99.0 Mean Corpuscular Hgb (MCH) 30.9 pg 27.0-31.0 Mean Corpuscular Hgb Conc (MCH 32.0 g/dL 32.0-36.0 Red Cell Distrib Width (RDW) 14.0 % 11.5-14.5 Platelet Count (PLT) 370 X10'3/uL 130-400 Mean Platelet Volume (MPV) 10.4 fL 9.3-12.2 Basophils % (Auto) 0.7 % 0.0-1.0 Eosinophils % (Auto) 1.3 % 1.0-3.0 Neutrophils % (Auto) 58.6 % 43.0-65.0 Lymphocytes % (Auto) 29.9 % 20.0-46.0 Monocytes % (Auto) 9.1 % 5.0-12.0 IMMATURE GRANULOCYTES 0.4 % 0.0-1.0 Differential Type AUTOMATED Assessment 1. Sacral pain (724.6) (M53.3) 2. Nausea (787.02) (R11.0) Plan Anxiety, Insomnia 1. LORazepam 0.5 MG Oral Tablet; TAKE 1 TABLET BY MOUTH 3 TIMES A DAY NEEDED Rx By: Royer Hidalgo; Dispense: 30 Days ; #:90 Tablet; Refill: 0; For: Anxiety, Insomnia; TEX = N; Record; Last Updated By: Anupama Maddox; 05/14/2015 1:31:[address] [facility] [place] - LM /tjt Called into [facility] - LM /tjt Called into [facility] - LM - gets #90 every 30 days /tjt Called into [facility] - LM /tjt Called into [facility] [place] - LM [facility] Called in to [facility] - LM /tjt Called in to [facility] - LM /tjt Insomnia 2. Zolpidem Tartrate 10 MG Oral Tablet; TAKE 1 TABLET BY MOUTH AT BEDTIME NEEDED FOR SLEEP Rx By: Royer Hidalgo; Dispense: 30 Days ; #:30 Tablet; Refill: 2; For: Insomnia; TEX = N; Record; Last Updated By: Anupama Maddox; 05/14/2015 1:31:42 PM Called into [facility] - LM /tjt Called to [facility] per Dr Hidalgo, #30 with 2 refills-[facility] Called in #30 to [facility] - lunesta not covered /tjt Called into [facility] /tjt Called to [facility] Nausea 3. CBC W Differential; Status:Resulted - Requires Verification; Done: 14May2015 01:30PM Performed:[facility]; Due:13Jun2015;Ordered; For:Nausea; Ordered By:Royer Hidalgo; 4. Compr Metabolic Prof ( CMP ); Status:Resulted - Requires Verification; Done: 14May2015 01:30PM Performed:[facility]; Due:13Jun2015;Ordered; For:Nausea; Ordered By:Royer Hidalgo; Sacral pain 5. MRI SACRUM W/O; Status:Need Information - Financial Authorization; Requested for:14May2015; Perform:[facility] Radiology; Order Comments:44 year old female with 3 mo of sacral pain s/p injury. Plain film NL.; Due:13Jun2015;Ordered; For:Sacral pain; Ordered By:Royer Hidalgo; Type 2 diabetes mellitus 6. MetFORMIN HCl ER 500 MG Oral Tablet Extended Release 24 Hour Rx By: Royer Hidalgo; Dispense: 0 Days ; #:90 Tablet Extended Release 24 Hour; Refill: 5; For: Type 2diabetes mellitus; TEX = N; Record Discussion/Summary 1. Sacral Pain: Check plain film. If normal, check MRI due to chronicity of pain. Take NSAIDs and ice regularly. 2. Nausea: Check labs. Change metformin to 500mg BID. Consider stopping OCPs. F/U PRN. Signatures Electronically signed by : Royer Hidalgo M.D.; May 14 2015 9:46PM CLAIMS AUDITOR (Author) documented in this encounter Plan of Treatment Upcoming Encounters Date Type Department Care Team (Late st Contact Info) Description 07/25/2024 10:00 AM CLAIMS AUDITOR Office Visit [facility] Family & Internal Medicine [address] [address] Keyonna Armstrong APNP [address] [place] [address] 07/31/2024 10:15 AM CLAIMS AUDITOR Office Visit [facility], [facility] [address] [place], [place] [phone] Pepe Mitchell MD [facility]. [facility] [address] [place], [place] [id number] documented as of this encounter Procedures Procedure Name Priority Date/Time Associated Diagnosis Comments COMPREHENSIVE METABOLIC PANEL Routine 05/14/2015 1:30 PM CDT CBC W/DIFF AUTOMATED Routine 05/14/2015 1:30 PM CDT documented in this encounter Results * (ABNORMAL) CBC W/DIFF AUTOMATED (05/14/2015 1:30 PM CDT) WBC 12.5(H) 4.8 - 10.8 X10'3/uL [facility] RBC 4.76 4.20 - 5.40 X10'6/uL [facility] CON[facility] HGB 14.7 12.0 - 16.0 g/dL [facility] HCT 46.0 38.0 - 48.0 % [facility] MCV 96.6 81.0 - 99.0 fL [facility] CON[facility] MCH 30.9 27.0 - 31.0 pg [facility] CONVERSION MCHC 32.0 32.0 - 36.0 g/dL [facility] RDW 14.0 11.5 - 14.5 % [facility] PLT 370 130 - 400 X10'3/uL [facility] GLUCOSE 10.4 9.3 - 12.2 fL [facility] CONVERSION BASOPHILS % 0.7 0.0 - 1.0 % [facility] CONVERSION EOSINOPHILS % 1.3 1.0 - 3.0 % [facility] CON[facility] NEUTROPHILS % 58.6 43.0 - 65.0 % [facility] LYMPHOCYTES % 29.9 20.0 - 46.0 % [facility] MONOCYTES % 9.1 5.0 - 12.0 % [facility] IMMATURE GRANS % 0.4 0.0 - 1.0 % [facility] CONVERSION DIFFERENTIAL TYPE AUTOMATED [facility] CONVERSION 05/14/2015 1:30 PM CDT 05/14/2015 1:30 PM CDT Narrative [facility] - 05/14/2015 8:44 PM CDT 14May2015 9:58PM by Royer Hidalgo: ??Hi Veronica, Your x-ray was normal. ??Your labs look good too. ??Your white blood cell (WBC) is slightly high, but this is probably normal for you since your last count was similar in 2012. ??PLease let us know if you have any questions. Take care, Dr. Hidalgo Result Communication: Mail Results to Patient us Royer Hidalgo MD LABORATORY Final Result [facility] CONVERSION * COMPREHENSIVE METABOLIC PANEL (05/14/2015 1:30 PM CDT) SODIUM S/P/B 144 136 - 145 mmol/L [facility] CONVERSION POTASSIUM S/P/B 3.9 3.5 - 5.1 mmol/L [facility] CONVERSION CHLORIDE S/P/B 106 98 - 107 mmol/L [facility] CONVERSION CO2 24 22 - 29 mmol/L [facility] TO [facility] CONVERSION ANION GAP 18 8 - 20 [facility] T O EPIC CONVERSION BUN 15 8 - 23 mg/dL [facility] CONVERSION CREATININE S/P/B 0.69 0.60 - 1.10 mg/dL [facility] CONVERSION GFR ESTIMATE >60 >60 mL/min/1 .73m'2 [facility] CONVERSION EGFR AFR. AMER. >60 NOTE: eGFR is not calculated for patients <18 years of age. This is an estimated GFR (CKD EPI) and should not be used for calculating drug doses. >60 mL/min/1 .73m'2 [facility] CONVERSION GLUCOSE 95 70 - 99 mg/dL [facility] CONVERSION CALCIUM S/P/B 9.4 8.6 - 10.2 mg/dL [facility] CONVERSION BILIRUBIN TOTAL S/P/B 0.2 0.2 - 1.2 mg/dL [facility] CONVERSION AST 18 0 - 32 IU/L [facility] CONVERSION ALT 16 0 - 33 IU/L [facility] CONVERSION ALKALINE PHOSPHATASE S/P/B 72 35 - 104 IU/L [facility] CONVERSION TOTAL PROTEIN S/P/B 7.1 6.4 - 8.3 g/dL [facility] CONVERSION ALBUMIN S/P/B 4.0 3.5 - 5.2 g/dL [facility] CONVERSION GLOBULIN 3.1 2.3 - 3.6 g/dL [facility] CONVERSION A/G RATIO 1.3 1.0 - 2.0 [facility] CONVERSION 05/14/2015 1:30 PM CDT 05/14/2015 1:30 PM CDT Narrative [facility] CONVERSION - 05/14/2015 9:04 PM CDT 14May2015 9:58PM by Royer Hidalgo: ??David Martin, Your x-ray was normal. ??Your labs look good too. ??Your white blood cell (WBC) is slightly high, but this is probably normal for you since your last count was similar in 2012. ??PLease let us know if you have any questions. Take care, Dr. Hidalgo Result Communication: Mail Results to Patient us Royer Hidalgo MD LABORATORY Final Result [facility] TO Dr. TATTOFF CONVERSION documented in this encounter Visit Diagnoses Not on filedocumented in this encounter Care Teams Front Office Director Relationship Specialty Start Date End Date Royer Hidalgo MD PCP - General 04/25/16 09/14/16 Royer Hidalgo MD PCP - General 05/14/15 04/24/16 documented as of this encounter
--- OUTSIDE RECORDS SUMMARY | 2024-07-10 23:02 | XMS_ITS | Encounter Summary ---
Author Organization [facility] Address [address] [place] [address]. [place], [place] [address] [place] [id number] Care Team Providers Care Dental Assistant Instructor Name Role Phone Royer Hidalgo MD Primary Care Provider [phone] Royer Hidalgo MD Primary Care Provider [phone] Priyanka Zepeda MD Primary Care Provider Unavailab le Encounter Details Date Type Department Care Team (Late st Contact Info) Description 04/22/2013 Abstract [facility] Family & Internal Medicine [address] [address] Priyanka Zepeda MD Social History Tobacco Use Types Packs/Day Years Used Date Smoking Tobacco: Never Assessed Comments Unknown Sex and Gender Information Value Date Recorded Sex Assigned at Not on file Legal Sex Female 5:47 PM CDT Gender Identity Female 07/17/2022 10:27 AM GAS LINE REPAIRER Sexual Orientation Straight 07/17/2022 10 :27 AM GAS LINE REPAIRER documented as of this encounter Last Filed Vital Signs Vital Sign Reading Time Taken Comments Blood Pressure 133/88 04/22/2013 10:00 AM CDT Pulse 88 04/22/2013 10:00 AM CDT Temperature - - Respiratory Rate - - Oxygen Saturation - - Inhaled Oxygen Concentration - - Weight 152.4 kg (336 lb) 04/22/2013 10:00 AM CDT Height - - Body Mass Index 54.23 06/19/2012 10:18 AM GAS LINE REPAIRER documented in this encounter Progress Notes * Priyanka Zepeda MD - 04/22/2013 10:00 AM CDT Reason For Visit Reason For Visit: Acute Visit Chief Complaint Chief Complaint Free Text: Here for diabetic screening foot check. Needing paperwork filled out for new shoes. Pt states she is having numbness, tingling, burning, and discoloration of her feet. No colness or hammer toes, states she has never had any calluses, bunions, or previous ulcers. Wanting to know if she can get back on prevacid for GERD, has failed all OTC medications. History of Present Illness HPI Free Text: Patient comes in today for a diabetic exam. Patient has been getting diabetic shoes for her diabetes for the past year or 2. She has a notice that it was time to get another.. Patient comes in today for that exam. Patient really does not seem to have a very good understanding of her diabetes problems in general. Is been fair amount of time going over them with her actually spending probably 35 minutes with her discussing diabetes and all of its treatments. I think she has a pretty thorough understanding of the disease process talus easily motivated to take better care of her self. The patient does have some peripheral neuropathy. He sees be worse on the right foot. Patient says that her great toe seems to be normal a lot. She also has some numbness along the bottom of the footnear the fat pad of the foot. Patient also has some firm callused areas under the heads of her second and third metatarsals on both feet. These areas were treated by the patient at times with a file and other dermabrasion. Patient takes metformin for her diabetes has not had an A1c done in 2 years she thinks. She's not sure when her last numbers were. Review of Systems Focused-Female: Constitutional: Normal. ENT: normal. Cardiovascular: Normal. Respiratory: Normal. Gastrointestinal: Normal. Genitourinary: Normal. Integumentary: some bruising noted on the abdomen. Musculoskeletal: Normal. Neurological: Normal. Psychiatric: Normal. Active Problems 1. Anxiety 300.00 2. Depression 311 3. Esophageal Reflux 530.81 4. Hypertension 401.9 5. Insomnia 780.52 6. Obstructive Sleep Apnea 327.23 7. Type 2 Diabetes Mellitus 250.00 Past Medical History Patient indicats no significant past medical history. Surgical History 1. History of Gastric Surgery For Morbid Obesity Family History 1. Paternal history of Diabetes Mellitus V18.0 2. Maternal history of Hypertension V17.49 3. Maternal grandmother's history of Stroke Syndrome V17.1 Social History ?? Never A Smoker Current Meds 1. Amitriptyline HCl 25 MG Oral Tablet; TAKE ONE TABLET BY MOUTH DAILY AT BEDTIME; Therapy: 25Feb2013 to (Evaluate:30Jul2013) Requested for: 85Gqf0734; Last Rx:[id number] Ordered; For: Insomnia (780.52); Rx By: Priyanka Zepeda; Dispense: 30 Days ; #:30 Tablet; Refill: 3; Verified Transmission to [facility][id number]; Last Updated By: Demetra Delcid 2. Atenolol 50 MG Oral Tablet; Therapy: 08Apr2012 to Recorded; Dispense: 90 Days ; #:180 TABS; Refill: 0; Record; Last Updated By: Demetra Delcid 3. Hydrochlorothiazide 25 MG Oral Tablet; TAKE ONE TABLET BY MOUTH EVERY DAY; Therapy: 20May2012 to (Evaluate:20Mar2014) Requested for: [id number]; Last Rx:[id number] Ordered; For: Hypertension (401.9); Rx By: Priyanka Zepeda; Dispense: 90 Days ; #:90 Tablet; Refill: 3; Verified Transmission to [facility] #[id number]; Last Updated By: Demetra Delcid 4. LORazepam 0.5 MG Oral Tablet; TK 1 T PO BID; Last Rx:[id number] Ordered; For: Insomnia (780.52), Anxiety (300.00); Rx By: Priyanka Zepeda; Dispense: 30 Days ; #:60 Tablet; Refill: 1; Print Rx; Last Updated By: Demetra Delcid 5. MetFORMIN HCl 500 MG Oral Tablet; Therapy: 24Dec2011 to Recorded; Dispense: 90 Days ; #:255 TABS; Refill: 0; Record; Last Updated By: Demetra Delcid 6. Pantoprazole Sodium 40 MG Oral Tablet Delayed Release; Therapy: 08Jun2012 to Recorded; Dispense: 30 Days ; #:30 TBEC; Refill: 0; Record; Last Updated By: Demetra Delcid 7. Trivora (28) Oral Tablet; Therapy: 30May2012 to Recorded; Dispense: 28 Days ; #:28 TABS; Refill: 0; Record; Last Updated By: Demetra Delcid 8. Venlafaxine HCl ER 75 MG Oral Capsule Extended Release 24 Hour; Therapy: 13May2012 to Recorded; Dispense: 90 Days ; #:255 CP24; Refill: 0; Record; Last Updated By: Demetra Delcid 9. Zolpidem Tartrate ER 12.5 MG Oral Tablet Extended Release; TAKE 1 TABLET AT BEDTIME NEEDED FOR SLEEP; Therapy: 24Jul2012 to (Evaluate:29Jul2013); Last Rx:31Mar2013 Ordered; For: Insomnia (780.52); Rx By: Priyanka Zepeda; Dispense: 30 Days ; #:30 Tablet Extended Release; Refill: 3; Print Rx; Last Updated By: Demetra Delcid Immunizations Influenza --- Series1: 19Jun2012 Vitals Vital Signs [Data Includes: Current Encounter] 22Apr2013 10:00AM Heart Rate 88 Respiration 16 Systolic 133 Diastolic 88 O2 Saturation 96 BMI Calculated 54 BSA Calculated 2.5 Weight 336 lb Physical Exam Right Foot Findings: dryness, three 1 cm3 callus and There are 3 calluses on the bottom of her right foot. These are under the MP joint of the foot. There is no redness or erythema noted. No open areas. The toes were tender, but were normal, were not swollen, were not erythematous and had full range of motion. The sensory exam showed normal vibratory sensation at the level of the toes and normal position sense at the level of the toes. Left Foot Findings: dryness, three 1 cm3 callus and There are 31 cm calluses on the bottom of the left foot each of these corresponds with the middle 3 MP joints.Erythema and no open areas. The toes were tender, but were normal, were not swollen, were not eryt hematous and had full range of motion. The sensory exam showed normal vibratory sensation at the level of the toes and normal position sense at the level of the toes. Monofilament Testing: Diminished tactile sensation with monofilament testing throughout both feet. Tactile sensation in the right foot (see image for location): number 4 was diminished, number 5 was diminished, number 6 was diminished, number 2 was diminished and number 3 was diminished, but number1 was normal, number 7 was normal, number 8 was normal, number 9 was normal and number 10 was normal. Tactile sensation in the left foot (see image for location): number 4 was diminished, but number 1 was normal, number 5 was normal, number 6 was normal, number 2 was normal, number 3 was normal, number 7 was normal, number 8 was normal, number 9 was normal and number 10 was normal. Vascular: Capillary refills findings on the right were normal in the toes. Pulses: 1+ in the posterior tibialis and 1+ in the dorsalis pedis. Capillary refills findings on the left were normal in thetoes. Pulses: 1+ in the posterior tibialis and 1+ in the dorsalis pedis. Assign Risk Category: 2: Loss of protective sensation with or without weakness, deformity, callus, pre-ulcer, or history of ulceration. High risk. Constitutional General appearance: No acute distress, well [...] rhythm, normal S1 and S2, without murmurs. Lymphatic Palpation of lymph nodes in neck: No lymphadenopathy. Musculoskeletal Gait and station: Normal. Digits and nails: Abnormal. Inspection/palpation of joints, bones, and muscles: Abnormal. Skin Skin and subcutaneous tissue: Abnormal. Neurologic Cranial nerves: Cranial nerves 2-12 intact. Sensation: Abnormal. See diabetic foot exam. Psychiatric Orientation to person, place, and time: Normal. Mood and affect: Normal. Assessment 1. Type 2 Diabetes Mellitus 250.00 2. Esophageal Reflux 530.81 3. 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 Callus 700 Plan 1. Call if: You have any numbness, tingling or sensation of cold. Done: 22Apr2013 Ordered; For: Diabetic Peripheral Neuropathy (357.2); Ordered By: Priyanka Zepeda 2. CBC W Differential Requested for: 22Apr2013 Ordered; For: Type 2 Diabetes Mellitus (250.00); Ordered By: Priyanka Zepeda Perform: [facility] Due: 29Apr2013; Last Updated By: Joanne Urbina 3. Compr Metabolic Prof ( CMP ) Requested for: 22Apr2013 Ordered; For: Type 2 Diabetes Mellitus (250.00); Ordered By: Priyanka Zepeda Perform: . [facility] Due: 29Apr2013; Last Updated By: Joanne Urbina 4. Hemoglobin A1C Requested for: 22Apr2013 Ordered; For: Type 2 Diabetes Mellitus (250.00); Ordered By: Priyanka Zepeda Perform: [facility] Due: 29Apr2013; Last Updated By: Joanne Urbina 5. Urine Microalbumin Ordered; For: Type 2 Diabetes Mellitus (250.00); Ordered By: Priyanka Zepeda Perform: [facility] Due: 29Apr2013 6. Urine Microalbumin Requested for: 22Apr2013 Ordered; For: Type 2 Diabetes Mellitus (250.00); Ordered By: Priyanka Zepeda Perform: Other Lab Due: 29Apr2013 Signatures Electronically signed by : Priyanka Zepeda M.D.; Apr 22 2013 2:29PM (Author) LINE REPAIRER documented in this encounter Plan of Treatment Upcoming Encounters Date Type Department Care Team (Late st Contact Info) Description 07/25/2024 10:00 AM GAS LINE REPAIRER Office Visit [facility] Family & Internal Medicine - [place] [address] [place] [address] Keyonna Armstrong APNP [address] [place] [address] 07/31/2024 10:15 AM GAS LINE REPAIRER Office Visit [facility] [address] [place] [address] Pepe Mitchell MD Three [facility]. [facility] [address] [place], [place] [id number] documented as of this encounter Procedures Procedure Name Priority Date/Time Associated Diagnosis Comments HEMOGLOBIN, GLYCOSYLATED Routine 04/22/2013 10:51 AM CDT COMPREHENSIVE METABOLIC PANEL Routine 04/22/2013 10:51 AM CDT CBC W/DIFF AUTOMATED Routine 04/22/2013 10:51 AM CDT MICROALBUMIN CREATININE RATIO Routine 04/22/2013 10:05 AM CDT documented in this encounter Results * (ABNORMAL) CBC W/DIFF AUTOMATED (04/22/2013 10:51 AM CDT) WBC 12.2(H) 4.8 - 10.8 X10'3/uL [facility] CONVERSION RBC 4.65 4.20 - 5.40 X10'6/uL [facility] TO [facility] CONVERSION HGB 14.5 12.0 - 16.0 g/dL [facility] CONVERSION HCT 44.3 37.0 - 47.0 % [facility] CONVERSION MCV 95.3 81.0 - 99.0 fL [facility] TO [facility] CONVERSION MCH 31.1(H) 27.0 - 31.0 pg [facility] TO [facility] CONVERSION MCHC 32.7 32.0 - 36.0 g/dL [facility] TO [facility] CONVERSION RDW 14.5 11.5 - 14.5 % [facility] TO [facility] CONVERSION PLT 327 130 - 400 X10'3/uL [facility] CONVERSION GLUCOSE 8.7 7.0 - 10.4 fL [facility] TO [facility] CONVERSION BASOPHILS % 0.2 0.0 - 1.0 % [facility] TO [facility] CONVERSION EOSINOPHILS % 2.7 1.0 - 3.0 % [facility] CONVERSION NEUTROPHILS % 60.3 43.0 - 65.0 % [facility] TO [facility] CONVERSION LYMPHOCYTES % 29.1 20.0 - 46.0 % [facility] TO [facility] CONVERSION MONOCYTES % 7.7 5.0 - 12.0 % [facility] TO [facility] CONVERSION RBC MORPHOLOGY 1+Anisocytosi s [facility] TO [facility] CONVERSION DIFFERENTIAL TYPE AUTOMATED [facility] CONVERSION 04/22/2013 10:5 1 AM CDT 04/22/2013 10:51 AM CDT Narrative [facility] CONVERSION - 04/22/2013 8:33 PM CDT Result Communication: Call patient with results Priyanka Zepeda MD LABORATORY Final Result [facility] TO [facility] CONVERSION * COMPREHENSIVE METABOLIC PANEL (04/22/2013 10:51 AM CDT) SODIUM S/P/B 137 136 - 145 mmol/L [facility] TO [facility] CONVERSION POTASSIUM S/P/B 4.4 3.5 - 5.1 mmol/L [facility] TO [facility]IC CONVERSION CHLORIDE S/P/B 98 98 - 107 mmol/L [facility] TO [facility] CONVERSION CO2 28 22 - 29 mmol/L [facility] TO [facility] CONVERSION ANION GAP 15 8 - 20 [facility] T O EPIC CONVERSION BUN 15 8 - 23 mg/dL [facility] TO EPIC CONVERSION CREATININE S/P/B 0.65 0.60 - 1.10 mg/dL [facility] TO [facility] CONVERSION GFR ESTIMATE >60 >60 mL/min/1 .73m'2 [facility] TO EPIC CONVERSION EGFR AFR. AMER. >60 NOTE: eGFR is not calculated for patients <18 years of age. This is an estimated GFR (CKD EPI) and should not be used for calculating drug doses. >60 mL/min/1 .73m'2 [facility] TO EPIC CONVERSION GLUCOSE 87 70 - 99 mg/dL [facility] TO [facility] CONVERSION CALCIUM S/P/B 9.8 8.6 - 10.2 mg/dL [facility] TO [facility]IC CONVERSION BILIRUBIN TOTAL S/P/B 0.2 0.2 - 1.2 mg/dL [facility] TO [facility] CONVERSION AST 26 0 - 32 IU/L [facility] TO [facility] CONVERSION ALT 26 0 - 33 IU/L [facility] TO EPIC CONVERSION ALKALINE PHOSPHATASE S/P/B 76 35 - 104 IU/L [facility] TO EPIC CONVERSION TOTAL PROTEIN S/P/B 7.0 6.4 - 8.3 g/dL [facility] TO EPIC CONVERSION ALBUMIN S/P/B 4.1 3.5 - 5.2 g/dL [facility] TO EPIC CONVERSION GLOBULIN 2.9 2.3 - 3.6 g/dL [facility] TO EPIC CONVERSION A/G RATIO 1.4 1.0 - 2.0 [facility] TO EPIC CONVERSION 04/22/2013 10:5 1 AM CDT 04/22/2013 10:51 AM CDT Narrative [facility] TO [facility] CONVERSION - 04/22/2013 8:33 PM CDT Result Communication: Call patient with results us Priyanka Zepeda MD LABORATORY Final Result Performing Organization Address [facility] Co de Phone Number [facility] TO EPIC CONVERSION * HEMOGLOBIN, GLYCOSYLATED (04/22/2013 10:51 AM CDT) HGB A1C 5.6 4.8 - 5.6 % [facility] TO [facility] CONVERSION Comment: Result Comment: ?? ADA GUIDELINES 2010 5.7 TO 6.4% INCREASED RISK OF DIABETES > OR = 6.5% CONSISTENT WITH DIABETES ESTIMATED AVG GLUCOSE 114 mg/dL [facility] TO EPIC CONVERSION 04/22/2013 10:5 1 AM CDT 04/22/2013 10:51 AM CDT Narrative [facility] TO [facility] CONVERSION - 04/22/2013 8:34 PM CDT Result Communication: Call patient with results us Priyanka Zepeda MD LABORATORY Final Result Performing Organization Address [facility] de Phone Number [facility] TO EPIC CONVERSION * MICROALBUMIN CREATININE RATIO (04/22/2013 10:05 AM CDT) CREATININE (U) 65 28 - 217 mg/dL [facility] TO EPIC CONVERSION MICROALBUMIN (U) 0.3 <2.0 mg/dL ME [facility] TO EPIC CONVERSION ALBUMIN/CREAT RATIO 4.6 <30 mcg/mg creat [facility] TO [facility]IC CONVERSION 04/22/2013 10:0 5 AM CDT 04/22/2013 10:05 AM CDT Narrative [facility] TO [facility] CONVERSION - 04/22/2013 8:34 PM CDT Result Communication: Call patient with results us Priyanka Zepeda MD LABORATORY Final Result Performing Organization Address [facility] Co de Phone Number [facility] TO EPIC CONVERSION documented in this encounter Visit Diagnoses Not on filedocumented in this encounter Care Teams Dental Assistant Instructor Relationship Specialty Start Date End Date Royer Hidalgo MD PCP - General 04/25/16 09/14/16 Royer Hidalgo MD PCP - General 05/14/15 04/24/16 Priyanka Zepeda MD PCP - General 04/22/13 05/13/15 documented as of this encounter
--- OUTSIDE RECORDS SUMMARY | 2024-07-10 23:02 | XMS_ITS | Encounter Summary ---
Author Organization [facility] Address [facility]. [place], [place] [address] [place] [address] Care Team Providers Care Kitchen Runner Name Role Phone Royer Hidalgo MD Primary Care Provider [phone] Royer Hidalgo MD Primary Care Provider [phone] Priyanka Zepeda MD Primary Care Provider Unavailab le Encounter Details Date Type Department Care Team (Latest Contact Info) Description 06/29/2014 Abstract [facility] , Claudia Gaines MD Social History Tobacco Use Types Packs/Day Years Used Date Smoking Tobacco: Never Assessed Comments Unknown Sex and Gender Information Value Date Recorded Sex Assigned at Not on file Legal Sex Female 5:47 PM CDT Gender Identity Female 07/17/2022 10:27 AM EDUCATIONAL INSTITUTION PRESIDENT Sexual Orientation Straight 07/17/2022 10 :27 AM EDUCATIONAL INSTITUTION PRESIDENT documented as of this encounter Progress Notes * Royer Hidalgo MD - 06/29/2014 2:06 PM CST Message Recorded as Task Date: 06/29/2014 11:56 AM, Created By: Bri Ruiz Task Name: Renew Medication Assigned To: [facility] Nursing Team Regarding Patient: Veronica Evangelista, Status: Active Comment: Bri Ruiz - 29 Jun 2014 11:56 AM TASK CREATED Caller: Self; Renew Medication; pt. is needing a refill on Amitriptyline HCI 25 MG. pharm- [facility] - 29 Jun 2014 2:06 PM TASK EDITED Pt has remaining refills of Amitriptyline. States she needs refill of Ambien CR. Med called to [facility] in [place] per pt request. Pt aware. Current Meds 1. Amitriptyline HCl - 25 MG Oral Tablet; TAKE 1 TABLET AT BEDTIME; Therapy: 25Feb2013 to (Evaluate:22Aug2014) Requested for: [id number]; Last Rx:[id number] Ordered 2. Enpresse-28 Oral Tablet; Take 1 tablet daily as directed; Therapy: 30May2012 to (Evaluate:28Dec2014) Requested for: 15Jun2014; Last Rx:15Jun2014 Ordered 3. Gas Relief CAPS; Therapy: (Recorded:23Sep2013) to Recorded 4. Hydrochlorothiazide 25 MG Oral Tablet; TAKE ONE TABLET BY MOUTH EVERY DAY; Therapy: 20May2012 to (Evaluate:17Aug2014) Requested for: 07Bxr4577; Last Rx:[id number] Ordered 5. Hydrocodone-Acetaminophen 5-325 MG Oral Tablet; TAKE 1 TO 2 TABLETS EVERY 4 TO 6 HOURS NEEDED FOR PAIN. NO MORE THAN 8 TABLETS PER DAY; Therapy: 25Sep2013 to (Evaluate:27Sep2013); Last Rx:25Sep2013 Ordered 6. LORazepam 0.5 MG Oral Tablet; Take 1 tablet twice a day; Therapy: 07Jul2013 to (Evaluate:05Igl0649) Requested for: 15Jun2014; Last Rx:15Jun2014 Ordered 7. MetFORMIN HCl - 500 MG Oral Tablet; TAKE 1 TABLET EVERY MORNING AND THEN TAKE 2 TABLETS AT BEDTIME; Therapy: 24Dec2011 to (Evaluate:14Jun2014) Requested for: 31Hpq3049; Last Rx:[id number] Ordered 8. Multivitamins TABS; Therapy: (Recorded:23Sep2013) to Recorded 9. Pantoprazole Sodium 40 MG Oral Tablet Delayed Release; TAKE ONE TABLET BY MOUTH EVERY DAY; Therapy: 08Jun2012 to (Evaluate:55Hmq8477) Requested for: 76Pxg2474; Last Rx:[id number] Ordered 10. Promethazine HCl - 25 MG Oral Tablet; TAKE 1 TABLET Every 8 hours PRN nausea; Therapy: 17Gfr3431 to (Evaluate:81Ayo6177) Requested for: 95Cgt2091; Last Rx:[id number] Ordered 11. Transderm-Scop 1.5 MG Transdermal Patch 72 Hour; APPLY 1 PATCH EVERY 3 DAYS; Therapy: 84Sko7403 to (Last Rx:[id number]) Requested for: 96Mmc0461 Ordered 12. Venlafaxine HCl ER 75 MG Oral Capsule Extended Release 24 Hour; Take 1 capsule in am and 2 capsule in evening; Therapy: 13May2012 to (Evaluate:13Aug2014) Requested for: 18Aug2013; Last Rx:[id number] Ordered 13. Vitamin D3 1000 UNIT Oral Tablet; Therapy: (Recorded:23Sep2013) to Recorded 14. Zolpidem Tartrate ER 12.5 MG Oral Tablet Extended Release (Ambien CR); TAKE ONE TABLET BY MOUTH AT BEDTIME NEEDED FOR SLEEP; Therapy: 99Ptc6841 to (Evaluate:29Jul2014) Requested for: 07Jaj1129; Last Rx:[id number] Ordered Signatures Electronically signed by : Royer Hidalgo M.D.; Jun 29 2014 2:46PM EDUCATIONAL INSTITUTION PRESIDENT (Author) documented in this encounter Plan of Treatment Upcoming Encounters Date Type Department Care Team (Late st Contact Info) Description 07/25/2024 10:00 AM EDUCATIONAL INSTITUTION PRESIDENT Office Visit [facility] Family & Internal Medicine - [place] [address] [place] [address] Keyonna Armstrong APNP [address] [place] [address] 07/31/2024 10:15 AM EDUCATIONAL INSTITUTION PRESIDENT Office Visit [facility] [address] [place] [address] Pepe Mitcehll MD [facility]. [facility] [address] [place], [place] [address] documented as of this encounter Visit Diagnoses Not on filedocumented in this encounter Care Teams Kitchen Runner Relationship Specialty Start Date End Date Royer Hidalgo MD PCP - General 04/25/16 09/14/16 Royer Hidalgo MD PCP - General 05/14/15 04/24/16 Priyanka Zepeda MD PCP - General 04/22/13 05/13/15 documented as of this encounter
--- OUTSIDE RECORDS SUMMARY | 2024-07-10 23:02 | XMS_ITS | Encounter Summary ---
Author Organization [facility] Address [address] [place] [address]. [place], [place] [address] [place] [address] Care Team Providers Care Nurse Research Name Role Phone Royer Hidalgo MD Primary Care Provider [phone] Royer Hidalgo MD Primary Care Provider [phone] Encounter Details Date Type Department Care Team (Late st Contact Info) Description 05/14/[address] [address] Emory Bernstein MD Social History Tobacco Use Types Packs/Day Years Used Date Smoking Tobacco: Never Assessed Comments Unknown Sex and Gender Information Value Date Recorded Sex Assigned at Not on file Legal Sex Female 5:47 PM CDT Gender Identity Female 07/17/2022 10:27 AM MAIL CARRIER AND CLERK Sexual Orientation Straight 07/17/2022 10 :27 AM MAIL CARRIER AND CLERK documented as of this encounter Progress Notes * Royer Hidalgo MD - 05/14/2015 9:58 PM CDT Message David Martin, Your x-ray was normal. Your labs look good too. Your white blood cell (WBC) is slightly high, but this is probably normal for you since your last count was similar in 2012. PLease let us know if you have any questions. Take care, Dr. Hidalgo Verified Results XY Sacrum Coccyx 2+ View NC 14May2015 02:41PM Royer Hidalgo Test Name Result Flag Reference XY Sacrum Coccyx 2+ View NC (Report) [facility] [address] [place] [address] Name: Veronica Evangelista MD: Royer Hidalgo Order Number: [id number] : 1970 Sex: F Performing Location: [facility] Procedure Code: Procedure: XY Sacrum Coccyx 2+ [...] spine. Electronically Signed By: JOCELINE MARIA MD 05/14/151442 Dictated On: 05/14/151440 Interpreted By: JOCELINE MARIA MD Pacs Image Result Radiology image is available. Click on Image Link above. Compr Metabolic Prof ( CMP ) 14May2015 01:30PM Rocky Royer Test Name Result Flag Reference Sodium (Na) [...] GRANULOCYTES 0.4 % 0.0-1.0 Differential Type AUTOMATED documented in this encounter Plan of Treatment Upcoming Encounters Date Type Department Care Team (Late st Contact Info) Description 07/25/2024 10:00 AM MAIL CARRIER AND CLERK Office Visit [facility] Medical Group Family & Internal Medicine - [place] [address] [place] [address] Keyonna Armstrong APNP [address] [place] [address] 07/31/2024 10:15 AM MAIL CARRIER AND CLERK Office Visit [facility] [place] [address] [place] [address] Pepe Mitchell MD Three [facility]. [place] [address] [place] [address] documented as of this encounter Procedures Procedure Name Priority Date/Time Associated Diagnosis Comments XR SACRUM+COCCYX MIN 2V Routine 05/14/2015 1:28 PM CDT documented in this encounter Results * XR SACRUM+COCCYX MIN 2V (05/14/2015 1:28 PM CDT) Anatomical Region Laterality Modality Spine Radiographic Breonna ging 05/14/2015 1:28 PM CDT 05/14/2015 1:28 PM CDT Narrative 05/14/2015 2:[address] [facility] [address] [place], [place] ??[address] ?? Name: Veronica Evangelista MD: Royer Hidalgo Order Number: [id number] : 1970 Sex: F Performing Location: [facility] ? Procedure Code: ??Procedure: XY Sacrum Coccyx 2+ View NC ? Examination: Sacrum and coccyx. Exam time: 1334 [...] sacrum/coccyx. 2. Degenerative changes lower lumbar spine. ? Electronically Signed By: JOCELINE MARIA MD 05/14/15 1443 ?? Dictated On: 05/14/15 1441 Interpreted By: JOCELINE MARIA MD Radiology image is available. Click on Image Link above. Procedure Note Royer Hidalgo MD - 05/15/[address] [facility] [place] [place] [address] Name: Veronica Evangelista MD: RockyRoyer Order Number: [id number] : 1970 Sex: F Performing Location: [facility] Procedure Code: Procedure: XY Sacrum Coccyx 2+ View NC Examination: Sacrum and coccyx. Exam time: 1334 hours. Clinical history: Injury February 2015. Persistent tailbone pain. Comparison: None. Technique: 3 views of the sacrum and coccyx were obtained. Findings: No plain film evidence of acute fracture or dislocation. There aredegenerative changes with disc space narrowing partially visualized in thelower lumbar spine, particularly at the level L4-L5. IMPRESSION: 1. No plain film evidence of acute fracture or dislocation involving thesacrum/coccyx. 2. Degenerative changes lower lumbar spine. Electronically Signed By: JOCELINE MARIA MD 05/14/151442 Dictated On: 05/14/151440 Interpreted By: JOCELINE MARIA MD Radiology image is available. Click on Image Link above. Royer Hidalgo MD GENERAL IMAGING Final Result documented in this encounter Visit Diagnoses Not on filedocumented in this encounter Care Teams Nurse Research Relationship Specialty Start Date End Date Royer Hidalgo MD PCP - General 04/25/16 09/14/16 Royer Hidalgo MD PCP - General 05/14/15 04/24/16 documented as of this encounter
--- OUTSIDE RECORDS SUMMARY | 2024-07-10 23:02 | XMS_ITS | Encounter Summary ---
Author Organization [facility] Address [address] [place] [address]. [place], [place] [address] [place] [address] Care Team Providers Care Foot Setter Name Role Phone Royer Hidalgo MD Primary Care Provider [phone] Royer Hidalgo MD Primary Care Provider [phone] Priyanka Zepeda MD Primary Care Provider Unavailab le Encounter Details Date Type Department Care Team (Latest Contact Info) Description 12/02/2013 Abstract [facility] Medical Group Priyanka Zepeda MD Social History Tobacco Use Types Packs/Day Years Used Date Smoking Tobacco: Never Assessed Comments Unknown Sex and Gender Information Value Date Recorded Sex Assigned at Not on file Legal Sex Female 5:47 PM CDT Gender Identity Female 07/17/2022 10:27 AM AIRCRAFT POWER PLANT ASSEMBLER Sexual Orientation Straight 07/17/2022 10 :27 AM AIRCRAFT POWER PLANT ASSEMBLER documented as of this encounter Progress Notes * Royer Hidalgo MD - 12/02/2013 1:25 PM CDT Message Recorded as Task Date: 12/02/2013 11:23 AM, Created By: Vicki Mcgill Task Name: Miscellaneous Assigned To: [facility]- Nursing Team Regarding Patient: Veronica Evangelista, Status: Active Comment: Vicki Mcgill - 02 Dec 2013 11:23 AM TASK CREATED Caller: Self; Other; Pt said the [facility] that Zolpidem 12.5 was called into is out of RX for a few days. [facility] [place], [place] Marcella Gant - 02 Dec 2013 1:25 PM TASK EDITED Spoke with Lori at [facility], they did not have enough of the med to fill entire script-pt did not receive any from them. Med called to [facility] per pt request. Current Meds 1. Enpresse-28 Oral Tablet; TAKE 1 TABLET DAILY DIRECTED; Therapy: 30May2012 to (Evaluate:22Dec2013) Requested for: [id number]; Last Rx:09Jun2013; Status: ACTIVE - Renewal Denied Ordered 2. Gas Relief CAPS; Therapy: (Recorded:23Sep2013) to Recorded 3. Hydrochlorothiazide 25 MG Oral Tablet; TAKE ONE TABLET BY MOUTH EVERY DAY; Therapy: 20May2012 to (Evaluate:05Qnz4924) Requested for: 45Mkw9954; Last Rx:[id number] Ordered 4. Hydrocodone-Acetaminophen 5-325 MG Oral Tablet; TAKE 1 TO 2 TABLETS EVERY 4 TO 6 HOURS NEEDED FOR PAIN. NO MORE THAN 8 TABLETS PER DAY; Therapy: 25Sep2013 to (Evaluate:27Sep2013); Last Rx:25Sep2013 Ordered 5. LORazepam 0.5 MG Oral Tablet; Take 1 tablet twice a day; Therapy: 02Qrl2929 to (Evaluate:10Dec2013) Requested for: 10Nov2013; Last Rx:[id number] Ordered 6. MetFORMIN HCl - 500 MG Oral Tablet; Therapy: 24Dec2011 to Recorded 7. Multivitamins TABS; Therapy: (Recorded:23Sep2013) to Recorded 8. Pantoprazole Sodium 40 MG Oral Tablet Delayed Release; TAKE ONE TABLET BY MOUTH EVERY DAY; Therapy: 08Jun2012 to (Evaluate:51Kar1784) Requested for: 16Jun2013; Last Rx:16Jun2013 Ordered 9. Sulfamethoxazole-TMP DS 800-160 MG Oral Tablet; TAKE 1 TABLET TWICE DAILY UNTIL FINISHED; Therapy: 25Sep2013 to (Evaluate:02Oct2013) Requested for: 25Sep2013; Last Rx:25Sep2013 Ordered 10. TraZODone HCl - 50 MG Oral Tablet; Take 1-2 tablets at bedtime as needed for sleep; Therapy: 28Nov2013 to (Last Rx:28Nov2013) Requested for: 28Nov2013 Ordered 11. Venlafaxine HCl ER 75 MG Oral Capsule Extended Release 24 Hour; Take 1 capsule in am and 2 capsule in evening; Therapy: 13May2012 to (Evaluate:13Aug2014) Requested for: 18Aug2013; Last Rx:18Aug2013 Ordered 12. Vitamin D3 1000 UNIT Oral Tablet; Therapy: (Recorded:23Sep2013) to Recorded 13. Zolpidem Tartrate ER 12.5 MG Oral Tablet Extended Release (Ambien CR); TAKE 1 TABLET AT BEDTIME NEEDED FOR SLEEP; Therapy: 66Wei0386 to (Evaluate:31Dec2013); Last Rx:[id number] Ordered Signatures Electronically signed by : Royer Hidalgo M.D.; Dec 02 2013 1:27PM AIRCRAFT POWER PLANT ASSEMBLER (Author) RAFT POWER PLANT ASSEMBLER documented in this encounter Plan of Treatment Upcoming Encounters Date Type Department Care Team (Late st Contact Info) Description 07/25/2024 10:00 AM AIRCRAFT POWER PLANT ASSEMBLER Office Visit [facility] Medical Group Family & Internal Medicine [address] [address] Keyonna Armstrong APNP [address] [place] [address] 07/31/2024 10:15 AM AIRCRAFT POWER PLANT ASSEMBLER Office Visit [facility] [address] [place], [place] [address] Pepe Mitchell MD [facility]. [facility] [address] [place], [place] [address] documented as of this encounter Visit Diagnoses Not on filedocumented in this encounter Care Teams Foot Setter Relationship Specialty Start Date End Date Royer Hidalgo MD PCP - General 04/25/16 09/14/16 Royer Hidalgo MD PCP - General 05/14/15 04/24/16 Priyanka Zepeda MD PCP - General 04/22/13 05/13/15 documented as of this encounter
--- OUTSIDE RECORDS SUMMARY | 2024-07-10 23:02 | XMS_ITS | Encounter Summary ---
Author Organization [facility] Address [facility]. [place], [place] [address] [place] [address] Care Team Providers Care Environmental Services Lead Name Role Phone Royer Hidalgo MD Primary Care Provider [phone] Royer Hidalgo MD Primary Care Provider [phone] Priyanka Zepeda MD Primary Care Provider Unavailab le Encounter Details Date Type Department Care Team (Latest Contact Info) Description 09/26/2013 Abstract [facility] Medical Group Social History Tobacco Use Types Packs/Day Years Used Date Smoking Tobacco: Never Assessed Comments Unknown Sex and Gender Information Value Date Recorded Sex Assigned at Not on file Legal Sex Female 5:47 PM CDT Gender Identity Female 07/17/2022 10:27 AM MANAGER LANDSCAPE Sexual Orientation Straight 07/17/2022 10 :27 AM MANAGER LANDSCAPE documented as of this encounter Plan of Treatment Upcoming Encounters Date Type Department Care Team (Late st Contact Info) Description 07/25/2024 10:00 AM MANAGER LANDSCAPE Office Visit [facility] Medical Group Family & Internal Medicine [facility] [address] [place] [address] Keyonna Armstrong APNP [address] [place] [address] 07/31/2024 10:15 AM MANAGER LANDSCAPE Office Visit [facility] [address] [place], [place] [address] Pepe Mitchell MD [facility]. [place] [address] [place], [place] [address] documented as of this encounter Visit Diagnoses Not on filedocumented in this encounter Care Teams Environmental Services Lead Relationship Specialty Start Date End Date Royer Hidalgo MD PCP - General 04/25/16 09/14/16 Royer Hidalgo MD PCP - General 05/14/15 04/24/16 Priyanka Zepeda MD PCP - General 04/22/13 05/13/15 documented as of this encounter
--- OUTSIDE RECORDS SUMMARY | 2024-07-10 23:02 | XMS_ITS | Encounter Summary ---
Author Organization [facility] Address [facility]. [place], [place] [address] [place] [address] Care Team Providers Care Hand Shoe Cutter Name Role Phone Royer Hidalgo MD Primary Care Provider [phone] Royer Hidalgo MD Primary Care Provider [phone] Priyanka Zepeda MD Primary Care Provider Unavailab Priyanka Cruz MD Primary Care Provider Unavailab lew Encounter Details Date Type Department Care Team (Latest Contact Info) Description 03/31/2013 Abstract [facility] Medical Group Social History Tobacco Use Types Packs/Day Years Used Date Smoking Tobacco: Never Assessed Comments Unknown Sex and Gender Information Value Date Recorded Sex Assigned at Not on file Legal Sex Female 5:47 PM CDT Gender Identity Female 07/17/2022 10:27 AM PACKAGE CAR DRIVER Sexual Orientation Straight 07/17/2022 10 :27 AM PACKAGE CAR DRIVER documented as of this encounter Progress Notes * Generic Conversion MD Marti - 03/31/2013 1:49 PM CDT Message Recorded as Task Date: 03/31/2013 11:49 AM, Created By: Joanne Urbina Task Name: Renew Medication Assigned To: [facility] Team Katelyn Regarding Patient: Veronica Evangelista, Status: Active Comment: Joanne Urbina - 31 Mar 2013 11:49 AM TASK CREATED Caller: Self; Renew Medication; Pt was told by Pharm to give us call for her Ambien 12.5mg ER refill that was denied. She said she should be been due a few days ago. [facility] Message: pt was put on elavil thats why it was denied. will send in new rx. Plan 1. Zolpidem Tartrate ER 12.5 MG Oral Tablet Extended Release; TAKE 1 TABLET AT BEDTIME NEEDED FOR SLEEP; Therapy: 24Jul2012 to (Evaluate:29Jul2013); Last Rx:31Mar2013 Signatures Electronically signed by : Demetra Delcid, ; Mar 31 2013 1:50PM (Author) AGE CAR DRIVER documented in this encounter Plan of Treatment Upcoming Encounters Date Type Department Care Team (Late st Contact Info) Description 07/25/2024 10:00 AM PACKAGE CAR DRIVER Office Visit [facility] Medical Group Family & Internal Medicine - [place] [address] [place] [address] Keyonna Armstrong APNP [address] [place] [address] 07/31/2024 10:15 AM PACKAGE CAR DRIVER Office Visit [facility] [address] [place] [address] Pepe Mitchell MD Three [facility]. [facility] [address] [place], [place] [address] documented as of this encounter Visit Diagnoses Not on filedocumented in this encounter Care Teams Hand Shoe Cutter Relationship Specialty Start Date End Date Royer Hidalgo MD PCP - General 04/25/16 09/14/16 Royer Hidalgo MD PCP - General 05/14/15 04/24/16 Priyanka Zepeda MD PCP - General 04/22/13 05/13/15 Priyanka Zepeda MD PCP - General 10/28/12 04/21/13 documented as of this encounter
--- OUTSIDE RECORDS SUMMARY | 2024-07-10 23:02 | XMS_ITS | Encounter Summary ---
Author Organization [facility] Address [facility]. [place], [place] [address] [place] [address] Care Team Providers Care Route Rider Name Role Phone Royer Hidalgo MD Primary Care Provider [phone] Royer Hidalgo MD Primary Care Provider [phone] Priyanka Zepeda MD Primary Care Provider Unavailab le Priyanka Zepeda MD Primary Care Provider Unavailab le Encounter Details Date Type Department Care Team (Latest Contact Info) Description 02/26/2013 Abstract [facility] Medical Group Social History Tobacco Use Types Packs/Day Years Used Date Smoking Tobacco: Never Assessed Comments Unknown Sex and Gender Information Value Date Recorded Sex Assigned at Not on file Legal Sex Female 5:47 PM CDT Gender Identity Female 07/17/2022 10:27 AM SHIRT IRONER Sexual Orientation Straight 07/17/2022 10 :27 AM SHIRT IRONER documented as of this encounter Progress Notes * Generic Conversion MD Marti - 02/26/2013 10:25 AM CDT Message Recorded as Task Date: 02/25/2013 03:19 PM, Created By: Joanne Urbina Task Name: Medical Complaint Callback Assigned To: [facility] Team Katelyn Regarding Patient: Veronica Evangelista, Status: Active Comment: Joanne Urbina - 25 Feb 2013 3:19 PM TASK CREATED [facility]er[facility] Other; Medical Complaint; (Day) Pharmacy calling regarding Amitriptyline prescribed today, she is already getting Effexor from a Dr. Jennings, just wanted you to know and please call Pharm back for directions: if you want them to stillfill it. Priyanka Zepeda - 25 Feb 2013 3:39 PM TASK REASSIGNED: Previously Assigned To Priyanka Zepeda one at for sleep Tiffanie Zhou - 26 Feb 2013 10:25 AM TASK EDITED pharmacist notified. ok to continue with both Signatures Electronically signed by : Tiffanie Zhou, ; Feb 26 2013 10:26AM (Author) T IRONER documented in this encounter Plan of Treatment Upcoming Encounters Date Type Department Care Team (Late st Contact Info) Description 07/25/2024 10:00 AM SHIRT IRONER Office Visit [facility] Medical Group Family & Internal Medicine - [place] [address] [place] [address] Keyonna Armstrong APNP [address] [place] [address] 07/31/2024 10:15 AM SHIRT IRONER Office Visit [facility], [facility] [address] [place] [address] Pepe Mitchell MD Three [facility]. [facility] [address] [place] [address] documented as of this encounter Visit Diagnoses Not on filedocumented in this encounter Care Teams Route Rider Relationship Specialty Start Date End Date Royer Hidalgo MD PCP - General 04/25/16 09/14/16 Royer Hidalgo MD PCP - General 05/14/15 04/24/16 Priyanka Zepeda MD PCP - General 04/22/13 05/13/15 Priyanka Zepeda MD PCP - General 10/28/12 04/21/13 documented as of this encounter
--- OUTSIDE RECORDS SUMMARY | 2024-07-10 23:02 | XMS_ITS | Encounter Summary ---
Author Organization [facility] Address [facility]. [place], [place] [address] [place] [address] Care Team Providers Care Director Card Name Role Phone Royer Hidalgo MD Primary Care Provider [phone] Royer Hidalgo MD Primary Care Provider [phone] Priyanka Zepeda MD Primary Care Provider Unavailab le Priyanka Zepeda MD Primary Care Provider Unavailab le Encounter Details Date Type Department Care Team (Latest Contact Info) Description 04/01/2013 Abstract [facility] Medical Group Social History Tobacco Use Types Packs/Day Years Used Date Smoking Tobacco: Never Assessed Comments Unknown Sex and Gender Information Value Date Recorded Sex Assigned at Not on file Legal Sex Female 5:47 PM CDT Gender Identity Female 07/17/2022 10:27 AM MANAGER BUDGET Sexual Orientation Straight 07/17/2022 10 :27 AM MANAGER BUDGET documented as of this encounter Plan of Treatment Upcoming Encounters Date Type Department Care Team (Late st Contact Info) Description 07/25/2024 10:00 AM MANAGER BUDGET Office Visit [facility] Medical Group Family & Internal Medicine - [place] [address] [place] [address] Keyonna Armstrong APNP [address] [place] [address] 07/31/2024 10:15 AM MANAGER BUDGET Office Visit [facility], [facility] [address] [place] [address] Pepe Mitchell MD [facility]. [place] [address] [place] [address] documented as of this encounter Visit Diagnoses Not on filedocumented in this encounter Care Teams Director Card Relationship Specialty Start Date End Date Royer Hidalgo MD PCP - General 04/25/16 09/14/16 Royer Hidalgo MD PCP - General 05/14/15 04/24/16 Priyanka Zepeda MD PCP - General 04/22/13 05/13/15 Priyanka Zepeda MD PCP - General 10/28/12 04/21/13 documented as of this encounter
--- OUTSIDE RECORDS SUMMARY | 2024-07-10 23:02 | XMS_ITS | Encounter Summary ---
Author Organization [facility] Address [address] [place] [address]. [place], [place] [address] [place] [address] Care Team Providers Care Assisted Living Nursing Director Name Role Phone Royer Hidalgo MD Primary Care Provider [phone] Royer Hidalgo MD Primary Care Provider [phone] Priyanka Zepeda MD Primary Care Provider Unavailab le Encounter Details Date Type Department Care Team (Late st Contact Info) Description 08/11/2014 Abstract [facility] [address] [place] [address] Royer Hidalgo MD [address] [place] [address] Social History Tobacco Use Types Packs/Day Years Used Date Smoking Tobacco: Never Assessed Comments Unknown Sex and Gender Information Value Date Recorded Sex Assigned at Not on file Legal Sex Female 5:47 PM CDT Gender Identity Female 07/17/2022 10:27 AM REDUCING MACHINE OPERATOR Sexual Orientation Straight 07/17/2022 10 :27 AM REDUCING MACHINE OPERATOR documented as of this encounter Plan of Treatment Upcoming Encounters Date Type Department Care Team (Late st Contact Info) Description 07/25/2024 10:00 AM REDUCING MACHINE OPERATOR Office Visit [facility] Medical Group Family & Internal Medicine [address] [address] Keyonna Armstrong APNP [address] [place] [address] 07/31/2024 10:15 AM REDUCING MACHINE OPERATOR Office Visit [facility] [place] [address] [place] [address] Pepe Mitchell MD Three [facility]. [place] [address] [place] [address] documented as of this encounter Visit Diagnoses Diagnosis Examination Unspecified examination documented in this encounter Care Teams Assisted Living Nursing Director Relationship Specialty Start Date End Date Royer Hidalgo MD PCP - General 04/25/16 09/14/16 Royer Hidalgo MD PCP - General 05/14/15 04/24/16 Priyanka Zepeda MD PCP - General 04/22/13 05/13/15 documented as of this encounter
--- OUTSIDE RECORDS SUMMARY | 2024-07-10 23:02 | XMS_ITS | Encounter Summary ---
Author Organization [facility] Address [address] [place] [address]. [place], [place] [address] [place] [address] Care Team Providers Care Environmental Emergencies Assistant Name Role Phone Royer Hidalgo MD Primary Care Provider [phone] Royer Hidalgo MD Primary Care Provider [phone] Priyanka Zepeda MD Primary Care Provider Unavailab le Priyanka Zepeda MD Primary Care Provider Unavailab le Encounter Details Date Type Department Care Team (Late st Contact Info) Description 1997 Abstract [facility] CON[facility] [place], [place] [id number] , Generic ConversionMD Social History Tobacco Use Types Packs/Day Years Used Date Smoking Tobacco: Never Assessed Comments Unknown Sex and Gender Information Value Date Recorded Sex Assigned at Not on file Legal Sex Female 5:47 PM CDT Gender Identity Female 07/17/2022 10:27 AM ELECTRONEURODIAGNOSTIC TECHNOLOGIST Sexual Orientation Straight 07/17/2022 10 :27 AM ELECTRONEURODIAGNOSTIC TECHNOLOGIST documented as of this encounter Plan of Treatment Upcoming Encounters Date Type Department Care Team (Late st Contact Info) Description 07/25/2024 10:00 AM ELECTRONEURODIAGNOSTIC TECHNOLOGIST Office Visit [facility] Family & Internal Medicine - [place] [address] [place] [address] Keyonna Armstrong APNP [address] [place] [address] 07/31/2024 10:15 AM ELECTRONEURODIAGNOSTIC TECHNOLOGIST Office Visit [facility], [address] [address] Pepe Mitchell MD Three [facility]. [facility] [address] [place] [address] documented as of this encounter Visit Diagnoses Not on filedocumented in this encounter Care Teams Environmental Emergencies Assistant Relationship Specialty Start Date End Date Royer Hidalgo MD PCP - General 04/25/16 09/14/16 Royer Hidalgo MD PCP - General 05/14/15 04/24/16 Priyanka Zepeda MD PCP - General 04/22/13 05/13/15 Priyanka Zepeda MD PCP - General 10/28/12 04/21/13 documented as of this encounter
--- OUTSIDE RECORDS SUMMARY | 2024-07-10 23:02 | XMS_ITS | Encounter Summary ---
Author Organization [facility] Address Critical access hospital6 [facility]. [place], [place] [address] [place] [address] Care Team Providers Care Damaged Freight Inspector Name Role Phone Royer Hidalgo MD Primary Care Provider [phone] Royer Hidalgo MD Primary Care Provider [phone] Priyanka Zepeda MD Primary Care Provider Unavailab le Encounter Details Date Type Department Care Team (Latest Contact Info) Description 04/13/2014 Abstract [facility] Social History Tobacco Use Types Packs/Day Years Used Date Smoking Tobacco: Never Assessed Comments Unknown Sex and Gender Information Value Date Recorded Sex Assigned at Not on file Legal Sex Female 5:47 PM CDT Gender Identity Female 07/17/2022 10:27 AM PRECISION LENS CENTERER AND EDGER Sexual Orientation Straight 07/17/2022 10 :27 AM PRECISION LENS CENTERER AND EDGER documented as of this encounter Miscellaneous Notes * Letter - Royer Hidalgo MD - 04/13/2014 9:14 AM CDT Dear Indio Martin I wasn't able to reply sooner, we've been very busy in clinic. I had a chance to review your concerns about your daughter's visit to our clinic and I also reviewed her chart. For the first 5-7 days of an upper respiratory infection, we usually don't prescribe antibiotics unless there is an obvious source of bacterial infection. The vast majority of these illnesses are caused by viruses and the immune system will fight off the infection within 5-7 days. During this time, we give supportivetreatment only (fever/pain reducers, cough medicines, and/or decongestants) and most of these medications are not covered by insurance. All too often, antibiotics are prescribed too early and this has caused a dramatic rise in resistance bacteria over the past 10-20 years. From a purely medical standpoint, I support Dr. Carr's decision making in regards to treatment. More education and/or explanation may have helped in this case and I discussed this with Dr. Carr. Wewill do our best to continue to provide patient-centered care using established guidelines. Please let us know if you have any further questions or concerns. Take care, Dr. Hidalgo Electronically signed by:Royer Hidalgo M.D. Apr 15 2014 3:07PM PRECISION LENS CENTERER AND EDGER documented in this encounter Plan of Treatment Upcoming Encounters Date Type Department Care Team (Late st Contact Info) Description 07/25/2024 10:00 AM PRECISION LENS CENTERER AND EDGER Office Visit [facility] Family & Internal Medicine [address] [address] Keyonna Armstrong APNP [address] [place] [address] 07/31/2024 10:15 AM PRECISION LENS CENTERER AND EDGER Office Visit [facility] [address] [place] [address] Pepe Mitchell MD [facility]. [facility] [address] [place], [place] [address] documented as of this encounter Visit Diagnoses Not on filedocumented in this encounter Care Teams Damaged Freight Inspector Relationship Specialty Start Date End Date Royer Hidalgo MD PCP - General 04/25/16 09/14/16 Royer Hidalgo MD PCP - General 05/14/15 04/24/16 Priyanka Zepeda MD PCP - General 04/22/13 05/13/15 documented as of this encounter
--- OUTSIDE RECORDS SUMMARY | 2024-07-10 23:02 | XMS_ITS | Encounter Summary ---
Author Organization [facility] Address [address] [place] [address]. [place], [place] [address] [place] [address] Care Team Providers Care Grain And Yeast Plants Supervisor Name Role Phone Royer Hidalgo MD Primary Care Provider [phone] Royer Hidalgo MD Primary Care Provider [phone] Priyanka Zepeda MD Primary Care Provider Unavailab le Encounter Details Date Type Department Care Team (Late st Contact Info) Description 09/23/2013 Abstract [facility] Family Medicine - [address] [phone] Royer Hidalgo MD [address] [facility] [address] Social History Tobacco Use Types Packs/Day Years Used Date Smoking Tobacco: Never Assessed Comments Unknown Sex and Gender Information Value Date Recorded Sex Assigned at Not on file Legal Sex Female 5:47 PM CDT Gender Identity Female 07/17/2022 10:27 AM FACULTY MEMBER Sexual Orientation Straight 07/17/2022 10 :27 AM FACULTY MEMBER documented as of this encounter Last Filed Vital Signs Vital Sign Reading Time Taken Comments Blood Pressure 140/87 09/23/2013 10:19 AM FACULTY MEMBER Pulse 88 09/23/2013 10:19 AM FACULTY MEMBER Temperature - - Respiratory Rate - - Oxygen Saturation - - Inhaled Oxygen Concentration - - Weight 138.3 kg (305 lb) 09/23/2013 10:19 AM FACULTY MEMBER Height 167.6 cm (5' 6) 09/23/2013 10:19 AM FACULTY MEMBER Body Mass Index 49.23 09/23/2013 10:19 AM FACULTY MEMBER documented in this encounter Progress Notes * Royer Hidalgo MD - 09/23/2013 10:30 AM CST Reason For Visit Reason For Visit: New Patient Visit Chief Complaint Chief Complaint Free Text: Establish care History of Present Illness HPI Free Text: This 43-year-old female is here to establish care with a new physician, because her previous physician is now doing administrative work. We discussed the following chronic issues today: #1 Morbid obesity: Patient had gastric bypass surgery approximately 10-15 years ago, but she has steadily gained weight over the past 5 years. She denies any rapid weight gain and she has recently tried to exercise. She has lost 28 pounds since April. The patient is interested in starting Belviq.She has never been on weight loss medications before. #2 Diabetes: Patient has a history of diabetes which is well controlled on metformin. She currentlytakes metformin 500 mg q.a.m. and 1000 mg q.p.m. Her last A1c was in April 2013 and was 5.6. #3 Anxiety/chronic insomnia: The patient currently takes Effexor ER 225 mg split into 2 doses. She also takes lorazepam 0.5 mg twice daily which she has done for the last 3-4 years. She also takes Elavil 25-50 mg at bedtime along with Ambien CR. Her insurance is no longer covering Ambien CR. Overall, her anxiety is somewhat worse over the past several months. She does not have panic attacks, but she gets overwhelmed very easily. She has multiple children at home which keeps her very dizzy. She denies SI/HI. Her mood is irritable. She is hoping to get an increased dose of lorazepam today. REVIEW OF SYSTEMS Constitutional: Negative. Eyes: Negative. ENT: Negative. Cardiovascular: Negative. Respiratory: Negative. Gastrointestinal: Negative. Genitourinary: Negative. Musculoskeletal: Negative. Integumentary: Negative. Psychiatric: See history of present illness. Hematologic and Lymphatic: Negative. PHYSICAL EXAM: GEN: NAD, well-appearing and well-nourished. HEAD/FACE: Normal to inspection. EYES Conjunctiva and lids: without swelling, erythema, or discharge. Pupils and irises: EOMI/PERRLA. ENT External inspection of ears: WNL. Otoscopic Exam: TM translucent with normal light reflex. Canals patent without erythema. Lips/Teeth/Gums: Normal, good dentition. Oropharynx: MMM; Normal with no erythema, edema, exudate, or lesions. NECK Neck: Supple, trachea midline with full ROM and no masses, JVD, or LAD. Thyroid: No nodules or TM. PULM Respiratory Effort: No increased work of breathing, retractions, or signs of distress. Auscultation of Lungs: Clear to auscultation without wheezes, rhonchi, or decreased BS. CV Auscultation: Normal rate and rhythm. NL S1/S2 without M/R/G. Pedal Pulses: 2+ bilaterally. Extremities: No edema or varicosities. LYMPH Neck: No pathologic LAD. MUSULOSKELETAL Gait and Station: Normal. Digits and Nails: No clubbing, cyanosis, edema, or nail changes. Muscle Strength and Tone: Normal. SKIN Inspection and Palpation: Normal without rashes or suspicious lesions. NEUROLOGIC Reflexes: Symmetric and 2+ BLE/BUE. Sensation: Symmetric and normal to light touch. PSYCHIATRIC: Judgment and Insight: Normal. Mood and Affect: Normal and congruent. Active Problems 1. Anxiety (300.00) (F41.9) 2. Callus (700) (L84) 3. Depression (311) (F32.9) 4. Diabetic peripheral neuropathy (250.60,357.2) (E13.42,G62.9) 5. Esophageal reflux (530.81) (K21.9) 6. Hypertension (401.9) (I10) 7. Insomnia (780.52) (G47.00) 8. Obstructive sleep apnea (327.23) (G47.33) 9. Type 2 diabetes mellitus (250.00) (E11.9) Past [...] TABLET BY MOUTH DAILY AT BEDTIME; Therapy: [id number] to (Evaluate:83Ykj1940) Requested for: [id number]; Last Rx:[id number] Ordered Rx By: Darrell Hopson; Dispense: 30 Days ; #:30 Tablet; Refill: 11; For: Insomnia; TEX = N; Verified Transmission to [facility]; Last Updated By: Demetra Delcid; 07/18/2013 8:17:54 AM 2. Enpresse-28 Oral Tablet; TAKE 1 TABLET DAILY DIRECTED; Therapy: 30May2012 to (Evaluate:22Dec2013) Requested for: 09Jun2013; Last Rx:09Jun2013 Ordered Rx By: Priyanka Zepeda; Dispense: 28 Days ; #:1 X 28 EA Disp Pack; Refill: 6; For: Health Maintenance;TEX = N; Verified Transmission to [facility]; Last Updated By: Demetra Delcid; 06/09/2013 9:48:23 AM 3. Gas Relief CAPS; Therapy: (Recorded:23Sep2013) to Recorded Dispense: 0 Days ; #: Sufficient CAPS; Refill: 0; TEX = N; Record; Last Updated By: Marcella Gant; 09/23/2013 10:26:01 AM 4. Hydrochlorothiazide 25 MG Oral Tablet; TAKE ONE TABLET BY MOUTH EVERY DAY; Therapy: 20May2012 to (Evaluate:[id number]) Requested for: 25Mar2013; Last Rx:25Mar2013 Ordered Rx By: Priyanka Zepeda; Dispense: 90 Days ; #:90 Tablet; Refill: 3; For: Hypertension; TEX = N; Verified Transmission to [facility]; Last Updated By: Demetra Delcid; 03/25/2013 2:02:14 PM 5. LORazepam 0.5 MG Oral Tablet; TAKE 1 TABLET BY MOUTH TWICE DAILY; Therapy: 17Qse2937 to (Evaluate:09Oct2013) Requested for: 09Sep2013; Last Rx:09Sep2013 [...] BY MOUTH EVERY DAY; Therapy: 08Jun2012 to (Evaluate:90Ktt1695) Requested for: 16Jun2013; Last Rx:16Jun2013 Ordered Rx By: Priyanka Zepeda; Dispense: 0 Days ; #:30 Tablet Delayed Release; Refill: 6; For: Esophageal reflux; TEX = N; Verified Transmission to [facility]; Last Updated By: Demetra Delcid; 06/16/2013 [...] For:Depression; TEX = N; Verified Transmission to [facility]; Last Updated By: Fartun Omalley; 08/18/2013 4:27:48 PM 10. Vitamin D3 1000 UNIT Oral Tablet; Therapy: (Recorded:23Sep2013) to Recorded Dispense: 0 Days ; #: Sufficient TABS; Refill: 0; TEX = N; Record; Last Updated By: Marcella Gant; 09/23/2013 10:26:01 AM 11. Zolpidem Tartrate ER 12.5 MG Oral Tablet Extended Release; TAKE 1 TABLET AT BEDTIME NEEDED FOR SLEEP; Therapy: 24Jul2012 to (Evaluate:[id number]); Last Rx:18Aug2013 Ordered Rx By: Darrell Hopson; Dispense: 30 Days ; #:30 Tablet Extended Release; Refill: 3; For: Insomnia;TEX = N; Print Rx; Last Updated By: Fartun Omalley; 09/23/2013 11:02:18 AM Allergies 1. No Known Drug Allergies Updated By: Marcella Gant; 09/23/2013 10:26:01 AM Immunizations Influenza --- Series1: 19Jun2012 Vitals Vital Signs [Data Includes: Current Encounter] Recorded by : Marcella Gant at 23Sep2013 10:19AM Heart Rate 88 Respiration 18 Systolic 140 Diastolic 87 O2 Saturation 98 Height 5 ft 6 in Weight 305 lb BMI Calculated 49.23 BSA Calculated 2.39 Assessment 1. Insomnia (780.52) (G47.00) 2. Anxiety (300.00) (F41.9) 3. Type 2 diabetes mellitus (250.00) (E11.9) 4. Morbid obesity (278.01) (E66.01) Plan 1. Stop: Zolpidem Tartrate ER 12.5 MG Oral Tablet Extended Release Rx By: Darrell Hopson; Dispense: 30 Days ; #:30 Tablet Extended Release; Refill: 3; For: Insomnia;TEX = N; Print Rx; Last Updated By: Royer Hidalgo; 09/23/2013 11:02:18 AM 2. Start: Zolpidem Tartrate 10 MG Oral Tablet (Ambien 10 MG Oral Tablet); TAKE 1 TABLET AT BEDTIME NEEDED FOR INSOMNIA Rx By: Royer Hidalgo; Dispense: 90 Days ; #:90 Tablet; Refill: 1; For: Insomnia; TEX = N; Print Rx Discussion/Summary Discussion Summary Free Text: #1 Anxiety: Continue Effexor at 225 mg daily, she can actually take this all at one time. Dependingon how she responds with her insomnia, consider adding trazodone at a later time. Overall, this is stable and I do not feel that increasing her lorazepam would be a good idea at this point. #2 Chronic insomnia: I'll switch the patient back to standard dose of Ambien at 10 mg each night. Iwill have her take amitriptyline 50 mg every night. If this does not help her sleep, we can change her from amitriptyline to trazodone. I will continue her on Ambien since she's been on this for several years. Next visit, we can consider having her try a melatonin supplement. #3 Morbid obesity: I've encouraged the patient to continue with her healthy diet and regular exercises. I think this will help with her mood and her sleep. She should gradually build up her exercise regimen, so she does not get an overuse injury. Since Belviq is not a stimulant, I will submit a request for this given her significant comorbidities. #4 Diabetes: The patient's diabetes appears well-controlled, so I will have her take metformin 500 mg b.i.d. She will be due for her annual labs in March 2014. I do not think that anything needs to be checked again at this point. Followup in 2-3 months, sooner if needed. Signatures Electronically signed by : Royer Hidalgo M.D.; Sep 23 2013 2:18PM FACULTY MEMBER (Author) LTY MEMBER documented in this encounter Miscellaneous Notes * Letter - Royer Hidalgo MD - 09/23/2013 10:30 AM CST To Whom It May Concern: I have seen Veronica in clinic today for a general medical exam. She is free from infectious disease and she has no limitations that would prevent her from volunteering in a medical facility. Please don't hesitate to contact me if you have any questions. Sincerely, Electronically signed by:Royer Hidalgo M.D. Sep 23 2013 11:07AM FACULTY MEMBER LTY MEMBER documented in this encounter Plan of Treatment Upcoming Encounters Date Type Department Care Team (Late st Contact Info) Description 07/25/2024 10:00 AM FACULTY MEMBER Office Visit [facility] Family & Internal Medicine - [place] [address] [place] [address] Keyonna Armstrong APNP [address] [place] [address] 07/31/2024 10:15 AM FACULTY MEMBER Office Visit [facility], [address] [address] Pepe Mitchell MD Three [facility]. [facility] [address] [place] [address] documented as of this encounter Visit Diagnoses Not on filedocumented in this encounter Care Teams Grain And Yeast Plants Supervisor Relationship Specialty Start Date End Date Royer Hidalgo MD PCP - General 04/25/16 09/14/16 Royer Hidalgo MD PCP - General 05/14/15 04/24/16 Priyanka Zepeda MD PCP - General 04/22/13 05/13/15 documented as of this encounter
--- OUTSIDE RECORDS SUMMARY | 2024-07-10 23:02 | XMS_ITS | Encounter Summary ---
Author Organization [facility] Address [facility]6 [facility]. [place], [place] [address] [place] [address] Care Team Providers Care Special Makeup Fx Artist Instructor Name Role Phone Royer Hidalgo MD Primary Care Provider [phone] Royer Hidalgo MD Primary Care Provider [phone] Priyanka Zepeda MD Primary Care Provider Unavailab le Encounter Details Date Type Department Care Team (Latest Contact Info) Description 08/06/2013 Abstract [facility] Social History Tobacco Use Types Packs/Day Years Used Date Smoking Tobacco: Never Assessed Comments Unknown Sex and Gender Information Value Date Recorded Sex Assigned at Not on file Legal Sex Female 5:47 PM CDT Gender Identity Female 07/17/2022 10:27 AM EDGE FINISHER Sexual Orientation Straight 07/17/2022 10 :27 AM EDGE FINISHER documented as of this encounter Plan of Treatment Upcoming Encounters Date Type Department Care Team (Late st Contact Info) Description 07/25/2024 10:00 AM EDGE FINISHER Office Visit [facility] Family & Internal Medicine [facility] [address] [place] [address] Keyonna Armstrong APNP [address] [place] [address] 07/31/2024 10:15 AM EDGE FINISHER Office Visit [facility] [address] [place], [place] [phone] Pepe Mitchell MD [facility]. [place] [address] [place], [place] [phone] documented as of this encounter Visit Diagnoses Not on filedocumented in this encounter Care Teams Special Makeup Fx Artist Instructor Relationship Specialty Start Date End Date Royer Hidalgo MD PCP - General 04/25/16 09/14/16 Royer Hidalgo MD PCP - General 05/14/15 04/24/16 Priyanka Zepeda MD PCP - General 04/22/13 05/13/15 documented as of this encounter
--- OUTSIDE RECORDS SUMMARY | 2024-07-10 23:02 | XMS_ITS | Encounter Summary ---
Author Organization [facility] Address [facility]6 [facility]. [place], [place] [address] [place] [address] Care Team Providers Care Software Engineer Sales Name Role Phone Royer Hidalgo MD Primary Care Provider [phone] Royer Hidalgo MD Primary Care Provider [phone] Priyanka Zepeda MD Primary Care Provider Unavailab le Encounter Details Date Type Department Care Team (Latest Contact Info) Description 05/22/2014 Abstract [facility] Royer Hidalgo MD [address] [facility] [place] [address] Social History Tobacco Use Types Packs/Day Years Used Date Smoking Tobacco: Never Assessed Comments Unknown Sex and Gender Information Value Date Recorded Sex Assigned at Not on file Legal Sex Female 5:47 PM CDT Gender Identity Female 07/17/2022 10:27 AM RIGGER UP Sexual Orientation Straight 07/17/2022 10 :27 AM RIGGER UP documented as of this encounter Plan of Treatment Upcoming Encounters Date Type Department Care Team (Late st Contact Info) Description 07/25/2024 10:00 AM RIGGER UP Office Visit [facility] Family & Internal Medicine [facility] [address] [place] [address] Keyonna Armstrong APNP [address] [place] [address] 07/31/2024 10:15 AM RIGGER UP Office Visit [facility], [address] [address] [facility] [address] [place] [address] documented as of this encounter Visit Diagnoses Not on filedocumented in this encounter Care Teams Software Engineer Sales Relationship Specialty Start Date End Date Royer Hidalgo MD PCP - General 04/25/16 09/14/16 Royer Hidalgo MD PCP - General 05/14/15 04/24/16 Priyanka Zepeda MD PCP - General 04/22/13 05/13/15 documented as of this encounter
--- OUTSIDE RECORDS SUMMARY | 2024-07-10 23:02 | XMS_ITS | Encounter Summary ---
Author Organization [facility] Address [facility]6 [facility]. [place], [place] [address] [place] [address] Care Team Providers Care Senior Media Buyer Name Role Phone Royer Hidalgo MD Primary Care Provider [phone] Royer Hidalgo MD Primary Care Provider [phone] Priyanka Zepeda MD Primary Care Provider Unavailab le Priyanka Zepeda MD Primary Care Provider Unavailab le Encounter Details Date Type Department Care Team (Latest Contact Info) Description 10/29/2012 Abstract [facility] Social History Tobacco Use Types Packs/Day Years Used Date Smoking Tobacco: Never Assessed Comments Unknown Sex and Gender Information Value Date Recorded Sex Assigned at Not on file Legal Sex Female 5:47 PM CDT Gender Identity Female 07/17/2022 10:27 AM TECHNOLOGIST DEVELOPMENT Sexual Orientation Straight 07/17/2022 10 :27 AM TECHNOLOGIST DEVELOPMENT documented as of this encounter Progress Notes * Generic Conversion MD Marti - 10/29/2012 11:42 AM CDT Message Recorded as Task Date: 10/29/2012 09:15 AM, Created By: Tiffanie Zhou Task Name: Medical Complaint Callback Assigned To: [facility] Katelyn Regarding Patient: Veronica Evangelista, Status: Active Comment: Tiffanie Zhou - 29 Oct 2012 9:15 AM TASK CREATED Caller: Self; Medical Complaint; forgot to ask at appt yesterday if she could get an rx for motion sickness patches. is going on a trip in a few weeks and would like Priyanka Zepeda - 29 Oct 2012 10:21 AM TASK REASSIGNED: Previously Assigned To Priyanka Zepeda i just ordered her scopolomine dot patches #4 in a box. one every 3 days. Signatures Electronically signed by : Demetra Carlson, ; Oct 29 2012 11:42AM (Author) NOLOGIST DEVELOPMENT documented in this encounter Plan of Treatment Upcoming Encounters Date Type Department Care Team (Late st Contact Info) Description 07/25/2024 10:00 AM TECHNOLOGIST DEVELOPMENT Office Visit [facility] Family & Internal Medicine - [place] [address] [place] [address] Keyonna Armstrong APNP [address] [place] [address] 07/31/2024 10:15 AM TECHNOLOGIST DEVELOPMENT Office Visit [facility], [facility] [address] [place], [place] [phone] Pepe Mitchell MD Three [facility]. [facility] [address] [place] [address] documented as of this encounter Visit Diagnoses Not on filedocumented in this encounter Care Teams Senior Media Buyer Relationship Specialty Start Date End Date Royer Hidalgo MD PCP - General 04/25/16 09/14/16 Roeyr Hidalgo MD PCP - General 05/14/15 04/24/16 Priyanka Zepeda MD PCP - General 04/22/13 05/13/15 Priyanka Zepeda MD PCP - General 10/28/12 04/21/13 documented as of this encounter
--- OUTSIDE RECORDS SUMMARY | 2024-07-10 23:02 | XMS_ITS | Encounter Summary ---
Author Organization [facility] Address [address] [place] [address]. [place], [place] [address] [place] [address] Care Team Providers Care Backroom Associate Name Role Phone Royer Hidalgo MD Primary Care Provider [phone] Royer Hidalgo MD Primary Care Provider [phone] Priyanka Zepeda MD Primary Care Provider Unavailab le Priyanka Zepeda MD Primary Care Provider Unavailab le Encounter Details Date Type Department Care Team (Late st Contact Info) Description 10/28/2012 Abstract [facility] Family & Internal Medicine [address] [phone] Priyanka Zepeda MD Social History Tobacco Use Types Packs/Day Years Used Date Smoking Tobacco: Never Assessed Comments Unknown Sex and Gender Information Value Date Recorded Sex Assigned at Not on file Legal Sex Female 5:47 PM CDT Gender Identity Female 07/17/2022 10:27 AM MEDICAL EDUCATION SPECIALIST Sexual Orientation Straight 07/17/2022 10 :27 AM MEDICAL EDUCATION SPECIALIST documented as of this encounter Last Filed Vital Signs Vital Sign Reading Time Taken Comments Blood Pressure 153/96 10/28/2012 9:36 AM CDT Pulse 89 10/28/2012 9:36 AM CDT Temperature - - Respiratory Rate - - Oxygen Saturation - - Inhaled Oxygen Concentration - - Weight 150.1 kg (331 lb) 10/28/2012 9:36 AM CDT Height - - Body Mass Index 53.42 06/19/2012 10:18 AM MEDICAL EDUCATION SPECIALIST documented in this encounter Progress Notes * Priyanka Zepeda MD - 10/28/2012 9:30 AM CDT Reason For Visit Reason For Visit: Acute Visit Chief Complaint 1. Easy Bruising/Bleeding Chief Complaint Free Text: concerned about her easy bruising and it not going away for long peroid of time. History of Present Illness HPI Free Text: patient is here to have an area on her abdomen looked at. She said that about a week ago a spontaneous hematoma developed on her lower abdominal wall. Patient has overweight and has a pannus. The area. Today. A central healing with some yellowish discoloration around some bruising. There is no mass. No varicosities noted. No underlying defects or abnormality noted. Patient states this has happened 2 or 3 times in the past. She is concerned that her blood may have a problem. Review of Systems Focused-Female: Constitutional: Normal. ENT: normal. Cardiovascular: Normal. Respiratory: Normal. Gastrointestinal: Normal. Genitourinary: Normal. Integumentary: some bruising noted on the abdomen. Musculoskeletal: Normal. Neurological: Normal. Psychiatric: Normal. Active Problems 1. Depression 311 2. Hypertension 401.9 3. Insomnia 780.52 4. Obstructive Sleep Apnea 327.23 5. Vaccines Prophylactic Need Against Influenza V04.81 Past Medical History Patient indicats no significant past medical history. Surgical History 1. History of Gastric Surgery For Morbid Obesity Family History 1. Paternal history of Diabetes Mellitus V18.0 2. Maternal history of Hypertension V17.49 3. Maternal grandmother's history of Stroke Syndrome V17.1 Social History ?? Never A Smoker Current Meds 1. Atenolol 50 MG Oral Tablet; Therapy: 08Apr2012 to Recorded; Dispense: 90 Days ; #:180 TABS; Refill: 0; Record; Last Updated By: Demetra Carlson 2. Hydrochlorothiazide 25 MG Oral Tablet; Therapy: 20May2012 to Recorded; Dispense: 90 Days ; #:90 TABS; Refill: 0; Record; Last Updated By: Demetra Carlson 3. LORazepam 0.5 MG Oral Tablet; TK 1 T PO BID; Therapy: (Recorded:19Jun2012) to Recorded; Dispense: 30 Days ; #:60 Tablet; Refill: 0; Record; Last Updated By: Demetra Carlson 4. MetFORMIN HCl 500 MG Oral Tablet; Therapy: 24Dec2011 to Recorded; Dispense: 90 Days ; #:255 TABS; Refill: 0; Record; Last Updated By: Demetra Carlson 5. Pantoprazole Sodium 40 MG Oral Tablet Delayed Release; Therapy: 08Jun2012 to Recorded; Dispense: 30 Days ; #:30 TBEC; Refill: 0; Record; Last Updated By: Demetra Carlson 6. Temazepam 30 MG Oral Capsule; TAKE 1 CAPSULE AT BEDTIME NEEDED FOR SLEEP; Therapy: 19Jun2012 to (Evaluate:18Aug2012); Last Rx:19Jun2012 Ordered; For: Insomnia (780.52); Rx By: Priyanka Zepeda; Dispense: 30 Days ; #:30 Capsule; Refill: 1; Print Rx 7. Trivora (28) Oral Tablet; Therapy: 30May2012 to Recorded; Dispense: 28 Days ; #:28 TABS; Refill: 0; Record; Last Updated By: Demetra Carlson 8. Venlafaxine HCl ER 75 MG Oral Capsule Extended Release 24 Hour; Therapy: 13May2012 to Recorded; Dispense: 90 Days ; #:255 CP24; Refill: 0; Record; Last Updated By: Demetra Carlson 9. Zolpidem Tartrate ER 12.5 MG Oral Tablet Extended Release; TAKE 1 TABLET AT BEDTIME NEEDED FOR SLEEP; Therapy: 24Jul2012 to (Evaluate:19Dec2012); Last Rx:21Aug2012 Ordered; For: Insomnia (780.52); Rx By: Priyanka Zepeda; Dispense: 30 Days ; #:30 Tablet Extended Release; Refill: 3; Print Rx; Last Updated By: Demetra Carlson 10. Zolpidem Tartrate ER 12.5 MG Oral Tablet Extended Release; Therapy: 23May2012 to Recorded; Dispense: 30 Days ; #:30 TBCR; Refill: 0; Record; Last Updated By: Demetra Carlson Allergies 1. No Known Drug Allergies No Known Drug Allergies Immunizations Influenza --- Series1: 19Jun2012 Vitals Vital Signs [Data Includes: Current Encounter] 28Oct2012 09:36AM Heart Rate 89 Respiration 18 Systolic 153 Diastolic 96 O2 Saturation 96 BMI Calculated 53.2 BSA Calculated 2.48 Weight 331 lb Physical Exam Constitutional General appearance: No acute [...] for edema and/or varicosities: Normal. Abdomen Abdomen: Abnormal. Resolving hematoma to the left lower pannus of the abdomen. Liver and spleen: No hepatomegaly or splenomegaly. Lymphatic Palpation of lymph nodes in neck: No lymphadenopathy. Musculoskeletal Gait and station: Normal. Digits and nails: Normal without clubbing or cyanosis. Inspection/palpation of joints, bones, and muscles: Normal. Skin Skin and subcutaneous tissue: Abnormal. As mentioned above. Neurologic Cranial nerves: Cranial nerves 2-12 intact. Psychiatric Orientation to person, place, and time: Normal. Mood and affect: Normal. Assessment 1. Nontraumatic Hematoma Of Soft Tissue 729.92 2. Bleeding 459.0 3. Health Maintenance V70.0 Plan 1. PTT - Partial Thromboplas Time Requested for: [id number] Ordered; For: Bleeding (459.0); Ordered By: Priyanka Zepeda Perform: Other Lab Due: 07Nov2012 2. Call if: You have any warning signs for skin cancer. Requested for: [id number] Ordered; For: Health Maintenance (V70.0); Ordered By: Priyanka Zepeda 3. CBC with Diff Requested for: [id number] Ordered; For: Nontraumatic Hematoma Of Soft Tissue (729.92), Bleeding (459.0); Ordered By: Priyanka Zepeda Perform: Other Lab Due: 48Pje5126 4. PT / INR - Protime Requested for: [id number] Ordered; For: Nontraumatic Hematoma Of Soft Tissue (729.92), Bleeding (459.0); Ordered By: Priyanka Zepeda Perform: Other Lab Due: 07Nov2012 Signatures Electronically signed by : Priyanka Zepeda M.D.; Oct 28 2012 2:55PM (Author) CAL EDUCATION SPECIALIST documented in this encounter Plan of Treatment Upcoming Encounters Date Type Department Care Team (Late st Contact Info) Description 07/25/2024 10:00 AM MEDICAL EDUCATION SPECIALIST Office Visit [facility] Family & Internal Medicine - [place] [address] [place] [address] Keyonna Armstrong APNP [address] [place] [address] 07/31/2024 10:15 AM MEDICAL EDUCATION SPECIALIST Office Visit [facility], [facility] [address] [place] [address] Pepe Mitchell MD Three [facility]. [facility] [address] [place] [address] documented as of this encounter Visit Diagnoses Not on filedocumented in this encounter Care Teams Backroom Associate Relationship Specialty Start Date End Date Royer Hidalgo MD PCP - General 04/25/16 09/14/16 Royer Hidalgo MD PCP - General 05/14/15 04/24/16 Priyanka Zepeda MD PCP - General 04/22/13 05/13/15 Priyanka Zepeda MD PCP - General 10/28/12 04/21/13 documented as of this encounter
--- OUTSIDE RECORDS SUMMARY | 2024-07-10 23:02 | XMS_ITS | Encounter Summary ---
Author Organization [facility] Address [facility]. [place], [place] [address] [place] [address] Care Team Providers Care Spinning Lathe Operator Automatic Name Role Phone Royer Hidalgo MD Primary Care Provider [phone] Royer Hidalgo MD Primary Care Provider [phone] Priyanka Zepeda MD Primary Care Provider Unavailab le Priyanka Zepeda MD Primary Care Provider Unavailab le Encounter Details Date Type Department Care Team (Latest Contact Info) Description 08/19/2012 Abstract [facility] Social History Tobacco Use Types Packs/Day Years Used Date Smoking Tobacco: Never Assessed Comments Unknown Sex and Gender Information Value Date Recorded Sex Assigned at Not on file Legal Sex Female 5:47 PM CDT Gender Identity Female 07/17/2022 10:27 AM INVESTMENT ACCOUNTANT Sexual Orientation Straight 07/17/2022 10 :27 AM INVESTMENT ACCOUNTANT documented as of this encounter Plan of Treatment Upcoming Encounters Date Type Department Care Team (Late st Contact Info) Description 07/25/2024 10:00 AM INVESTMENT ACCOUNTANT Office Visit [facility] Family & Internal Medicine - [place] [address] [place] [address] Keyonna Armstrong APNP [address] [place] [address] 07/31/2024 10:15 AM INVESTMENT ACCOUNTANT Office Visit [facility], [facility] [address] [place] [address] Pepe Mitchell MD [facility]. [place] [address] [place] [address] documented as of this encounter Visit Diagnoses Not on filedocumented in this encounter Care Teams Spinning Lathe Operator Automatic Relationship Specialty Start Date End Date Royer Hidalgo MD PCP - General 04/25/16 09/14/16 Royer Hidalgo MD PCP - General 05/14/15 04/24/16 Priyanka Zepeda MD PCP - General 04/22/13 05/13/15 Priyanka Zepeda MD PCP - General 10/28/12 04/21/13 documented as of this encounter
--- OUTSIDE RECORDS SUMMARY | 2024-07-10 23:02 | XMS_ITS | Encounter Summary ---
Author Organization [facility] - [facility] Address [facility]6 [facility]. [place], [place] [address] [place] [address] Care Team Providers Care Ironer Sock Name Role Phone Royer Hidalgo MD Primary Care Provider [phone] Royer Hidalgo MD Primary Care Provider [phone] Priyanka Zepeda MD Primary Care Provider Unavailab le Encounter Details Date Type Department Care Team (Latest Contact Info) Description 12/01/2013 Abstract [facility] Social History Tobacco Use Types Packs/Day Years Used Date Smoking Tobacco: Never Assessed Comments Unknown Sex and Gender Information Value Date Recorded Sex Assigned at Not on file Legal Sex Female 5:47 PM CDT Gender Identity Female 07/17/2022 10:27 AM LABORER Sexual Orientation Straight 07/17/2022 10 :27 AM LABORER documented as of this encounter Progress Notes * Royer Hidalgo MD - 12/01/2013 2:33 PM CDT Message Recorded as Task Date: 12/01/2013 11:49 AM, Created By: Jeni Rich Task Name: Medical Complaint Callback Assigned To: Marcella Gant Regarding Patient: Veronica Evangelista, Status: Active Comment: Jeni Rich - 01 Dec 2013 11:49 AM TASK CREATED Caller: Self; Medical Complaint; patient called and stated that the trazadone she was given to help her sleep made her sick she got dizzy felt as thugh she blacked out it made her sick and she didnt sleep her insurance denied her 12.5 ambien a while back was wondering if maybe it could be reordered the Time Released [place] to the [facility] Marcella Gant - 01 Dec 2013 12:35 PM TASK EDITED Royer Hidalgo - 01 Dec 2013 2:27 PM TASK EDITED Okay to order, but I doubt they'll cover it. Marcella Gant - 01 Dec 2013 2:37 PM TASK EDITED Ki CR called to [facility]. Pt will return call to clinic for an alternative if med is not covered. Current Meds 1. Enpresse-28 Oral Tablet; TAKE 1 TABLET DAILY DIRECTED; Therapy: 30May2012 to (Evaluate:22Dec2013) Requested for: 09Jun2013; Last Rx:09Jun2013 Ordered 2. Gas Relief CAPS; Therapy: (Recorded:23Sep2013) to Recorded 3. Hydrochlorothiazide 25 MG Oral Tablet; TAKE ONE TABLET BY MOUTH EVERY DAY; Therapy: 20May2012 to (Evaluate:43Key0150) Requested for: 43Grn7668; Last Rx:[id number] Ordered 4. Hydrocodone-Acetaminophen 5-325 MG Oral Tablet; TAKE 1 TO 2 TABLETS EVERY 4 TO 6 HOURS NEEDED FOR PAIN. NO MORE THAN 8 TABLETS PER DAY; Therapy: 25Sep2013 to (Evaluate:27Sep2013); Last Rx:25Sep2013 Ordered 5. LORazepam 0.5 MG Oral Tablet; Take 1 tablet twice a day; Therapy: 01Yng5253 to (Evaluate:53Jbn7654) Requested for: 10Nov2013; Last Rx:[id number] Ordered 6. MetFORMIN HCl - 500 MG Oral Tablet; Therapy: 24Dec2011 to Recorded 7. Multivitamins TABS; Therapy: (Recorded:23Sep2013) to Recorded 8. Pantoprazole Sodium 40 MG Oral Tablet Delayed Release; TAKE ONE TABLET BY MOUTH EVERY DAY; Therapy: 08Jun2012 to (Evaluate:75Uyx3944) Requested for: 16Jun2013; Last Rx:16Jun2013 Ordered 9. Sulfamethoxazole-TMP DS 800-160 MG Oral Tablet; TAKE 1 TABLET TWICE DAILY UNTIL FINISHED; Therapy: 25Sep2013 to (Evaluate:02Oct2013) Requested for: 25Sep2013; Last Rx:25Sep2013 Ordered 10. TraZODone HCl - 50 MG Oral Tablet; Take 1-2 tablets at bedtime as needed for sleep; Therapy: 37Sbi4299 to (Last Rx:37Xmv1129) Requested for: 90Yfo3936 Ordered 11. Venlafaxine HCl ER 75 MG Oral Capsule Extended Release 24 Hour; Take 1 capsule in am and 2 capsule in evening; Therapy: 13May2012 to (Evaluate:13Aug2014) Requested for: 18Aug2013; Last Rx:18Aug2013 Ordered 12. Vitamin D3 1000 UNIT Oral Tablet; Therapy: (Recorded:23Sep2013) to Recorded Plan 1. Start: Zolpidem Tartrate ER 12.5 MG Oral Tablet Extended Release (Ambien CR 12.5 MG Oral Tablet Extended Release); TAKE 1 TABLET AT BEDTIME NEEDED FOR SLEEP Signatures Electronically signed by : Royer Hidalgo M.D.; Dec 01 2013 2:40PM LABORER (Author) Electronically signed by : Royer Hidalgo M.D.; Dec 01 2013 2:40PM LABORER (Author) RER documented in this encounter Plan of Treatment Upcoming Encounters Date Type Department Care Team (Late st Contact Info) Description 07/25/2024 10:00 AM LABORER Office Visit [facility] Family & Internal Medicine - [place] [address] [place] [address] Keyonna Armstrong APNP [address] [place] [address] 07/31/2024 10:15 AM LABORER Office Visit [facility], [facility] [address] [place] [address] Pepe Mitchell MD [facility]. [facility] [address] [place] [address] documented as of this encounter Visit Diagnoses Not on filedocumented in this encounter Care Teams Ironer Sock Relationship Specialty Start Date End Date Royer Hidalgo MD PCP - General 04/25/16 09/14/16 Royer Hidalgo MD PCP - General 05/14/15 04/24/16 Priyanka Zepead MD PCP - General 04/22/13 05/13/15 documented as of this encounter
--- OUTSIDE RECORDS SUMMARY | 2024-07-10 23:02 | XMS_ITS | Encounter Summary ---
Author Organization [facility] Address [facility]. [place], [place] [address] [place] [address] Care Team Providers Care Vendor Manager Name Role Phone Royer Hidalgo MD Primary Care Provider [phone] Royer Hidalgo MD Primary Care Provider [phone] Priyanka Zepeda MD Primary Care Provider Unavailab le Encounter Details Date Type Department Care Team (Late Contact Info) Description 04/22/2013 Abstract [facility] [place] [address] Priyanka Zepeda MD Social History Tobacco Use Types Packs/Day Years Used Date Smoking Tobacco: Never Assessed Comments Unknown Sex and Gender Information Value Date Recorded Sex Assigned at Not on file Legal Sex Female 5:47 PM CDT Gender Identity Female 07/17/2022 10:27 AM BLOCK CUTTER Sexual Orientation Straight 07/17/2022 10 :27 AM BLOCK CUTTER documented as of this encounter Plan of Treatment Upcoming Encounters Date Type Department Care Team (Late Contact Info) Description 07/25/2024 10:00 AM BLOCK CUTTER Office Visit [facility] Family & Internal Medicine - [place] [address] [place] [address] Keyonna Armstrong APNP [address] [place] [address] 07/31/2024 10:15 AM BLOCK CUTTER Office Visit [facility], [address] [address] Pepe Mitchell MD Three [facility] [address] [place] [address] documented as of this encounter Visit Diagnoses Diagnosis Type 2 or unspecified type diabetes mellitus ([facility]) documented in this encounter Care Teams Vendor Manager Relationship Specialty Start Date End Date Royer Hidalgo MD PCP - General 04/25/16 09/14/16 Royer Hidalgo MD PCP - General 05/14/15 04/24/16 Priyanka Zepeda MD PCP - General 04/22/13 05/13/15 documented as of this encounter
--- OUTSIDE RECORDS SUMMARY | 2024-07-10 23:02 | XMS_ITS | Encounter Summary ---
Author Organization [facility] - [facility] Address [address] [place] [address]. [place], [place] [address] [place] [address] Care Team Providers Care Figure Refinisher And Repairer Name Role Phone Royer Hidalgo MD Primary Care Provider [phone] Royer Hidalgo MD Primary Care Provider [phone] Priyanka Zepeda MD Primary Care Provider Unavailab le Encounter Details Date Type Department Care Team (Latest Contact Info) Description 12/18/2014 Abstract [facility] Social History Tobacco Use Types Packs/Day Years Used Date Smoking Tobacco: Never Assessed Comments Unknown Sex and Gender Information Value Date Recorded Sex Assigned at Not on file Legal Sex Female 5:47 PM CDT Gender Identity Female 07/17/2022 10:27 AM HERB DIGGER Sexual Orientation Straight 07/17/2022 10 :27 AM HERB DIGGER documented as of this encounter Progress Notes * Royer Hidalgo MD - 12/18/2014 12:58 PM CDT Message Recorded as Task Date: 12/17/2014 03:25 PM, Created By: Jessica Nowak Task Name: Call Back Assigned To: Marcella Gant Regarding Patient: Veronica Evangelista, Status: Active Comment: Jessica Nowak - 17 Dec 2014 3:25 PM TASK CREATED Patient needs some adjustments to her Ambien, please call. Marcella Gant - 18 Dec 2014 12:00 PM TASK EDITED Pt states her formulary has changed, her insurance will now only cover Ambien 10mg(currently takes Ambien ER 12.5). OK to switch and refill? Pharm phone: [phone] Royer Hidalgo - 18 Dec 2014 12:21 PM TASK EDITED Yes. Marcella Gant - 18 Dec 2014 12:58 PM TASK EDITED Called to [facility] in [place]. Current Meds 1. Amitriptyline HCl - 25 MG Oral Tablet; TAKE 1 TO 2 TABLETS BY MOUTH EVERY EVENING AT BEDTIME; Therapy: 05Jde5794 to (Evaluate:84Dtu6975) Requested for: 18Aug2014; Last Rx:18Aug2014 Ordered 2. Atenolol 50 MG Oral Tablet; TAKE 1 TABLET BY MOUTH TWICE A DAY NEEDED; Therapy: 30Uld1797 to (Evaluate:90Dzk0883) Requested for: 09Kak4638; Last Rx:48Uep3005 Ordered 3. Enpresse-28 Oral Tablet; Take 1 tablet daily as directed; Therapy: 30May2012 to (Evaluate:28Dec2014) Requested for: 75Ykw6877; Last Rx:[id number] Ordered 4. Hydrochlorothiazide 25 MG Oral Tablet; TAKE ONE TABLET BY MOUTH EVERY DAY; Therapy: 20May2012 to (Evaluate:30Dec2014) Requested for: 28Lfi9234; Last Rx:[id number]; Status: ACTIVE - Renewal Denied Ordered 5. Ibuprofen 800 MG Oral Tablet; TAKE 1 TABLET 3 TIMES DAILY WITH FOOD NEEDED for pain; Therapy: 11Aug2014 to (Evaluate:10Oct2014) Requested for: 11Aug2014; Last Rx:11Aug2014 Ordered 6. LORazepam 0.5 MG Oral Tablet; TAKE 1 TABLET BY MOUTH TWICE A DAY NEEDED; Therapy: 72Oox8087 to (Evaluate:14Jan2015) Requested for: 55Kgz0901; Last Rx:74Zhq3723 Ordered 7. MetFORMIN HCl - 500 MG Oral Tablet; TAKE 1 TABLET EVERY MORNING AND THEN TAKE 2 TABLETS AT BEDTIME; Therapy: 24Dec2011 to (Evaluate:23Wje7155) Requested for: 29Jul2014; Last Rx:29Jul2014 Ordered 8. Methocarbamol 750 MG Oral Tablet; TAKE 1 TO 2 TABLETS 3 TIMES DAILY NEEDED FOR MUSCLE SPASM; Therapy: 11Aug2014 to (Evaluate:03Yfw6217) Requested for: 82Vlm1777; Last Rx:74Syf8977 Ordered 9. Multivitamins TABS; Therapy: (Recorded:23Sep2013) to Recorded 10. Pantoprazole Sodium 40 MG Oral Tablet Delayed Release; TAKE ONE TABLET BY MOUTH EVERY DAY; Therapy: 66Bqm5192 to (Evaluate:85Xzb3294) Requested for: 85Iyp2628; Last Rx:09Eux7773 Ordered 11. Polyethylene Glycol 3350 Oral Powder; MIX 1 CAPFUL (17GM) IN 8 OUNCES OF WATER, JUICE, OR TEA AND DRINK DAILY; Therapy: 08Sbk1145 to (Evaluate:96Qoy9664) Requested for: 58Lvz4702; Last Rx:55Vkw1563 Ordered 12. Venlafaxine HCl ER 75 MG Oral Capsule Extended Release 24 Hour; Take 1 capsule in am and 2 capsule in evening; Therapy: 58Rre7954 to (Evaluate:96Dvz2905) Requested for: 05Aug2014; Last Rx:05Aug2014 Ordered 13. Vitamin D3 1000 UNIT Oral Tablet; Therapy: (Recorded:23Sep2013) to Recorded 14. Zolpidem Tartrate 10 MG Oral Tablet; TAKE 1 TABLET AT BEDTIME NEEDED FOR SLEEP; Therapy: 06Tro5125 to (Evaluate:17Jan2015); Last Rx:[id number] Ordered Signatures Electronically signed by : Royer Hidalgo M.D.; Dec 18 2014 1:06PM HERB DIGGER (Author) documented in this encounter Plan of Treatment Upcoming Encounters Date Type Department Care Team (Late st Contact Info) Description 07/25/2024 10:00 AM HERB DIGGER Office Visit [facility] Family & Internal Medicine - [place] [address] [place] [address] Keyonna Armstrong APNP [address] [place] [address] 07/31/2024 10:15 AM HERB DIGGER Office Visit [facility], [place] [address] [place], [place] [address] Pepe Mitchell MD Three [facility]. [place] [address] [place], [place] [id number] documented as of this encounter Visit Diagnoses Not on filedocumented in this encounter Care Teams Figure Refinisher And Repairer Relationship Specialty Start Date End Date Royer Hidalgo MD PCP - General 04/25/16 09/14/16 Royer Hidalgo MD PCP - General 05/14/15 04/24/16 Priyanka Zepeda MD PCP - General 04/22/13 05/13/15 documented as of this encounter
--- OUTSIDE RECORDS SUMMARY | 2024-07-10 23:02 | XMS_ITS | Encounter Summary ---
Author Organization [facility] Address [address] [place] [address]. [place], [place] [address] [place] [address] Care Team Providers Care Butcher All Round Name Role Phone Reji Sprague MD Primary Care Provider [phone] Reji Sprague MD Primary Care Provider [phone] Priyanka Zepeda MD Primary Care Provider Unavailab le Encounter Details Date Type Department Care Team (Late st Contact Info) Description 08/11/2014 Abstract [facility] Medical Group Family Medicine - [address] [phone] Reji Sprague MD [address] [address] Social History Tobacco Use Types Packs/Day Years Used Date Smoking Tobacco: Never Assessed Comments Unknown Sex and Gender Information Value Date Recorded Sex Assigned at Not on file Legal Sex Female 5:47 PM CDT Gender Identity Female 07/17/2022 10:27 AM SUPERVISOR REWORK Sexual Orientation Straight 07/17/2022 10 :27 AM SUPERVISOR REWORK documented as of this encounter Last Filed Vital Signs Vital Sign Reading Time Taken Comments Blood Pressure 140/95 08/11/2014 3:11 PM SUPERVISOR REWORK Pulse 90 08/11/2014 3:11 PM SUPERVISOR REWORK Temperature - - Respiratory Rate - - Oxygen Saturation - - Inhaled Oxygen Concentration - - Weight 128.8 kg (284 lb) 08/11/2014 3:11 PM SUPERVISOR REWORK Height 167.6 cm (5' 6) 08/11/2014 3:11 PM SUPERVISOR REWORK Body Mass Index 45.84 08/11/2014 3:11 PM SUPERVISOR REWORK documented in this encounter Progress Notes * Reji Sprague MD - 08/11/2014 3:00 PM CST Reason For Visit Chronic Recheck Visit Chief Complaint Right hip, knee pain x 07/16/2014 History of Present Illness 43-year-old female presents with a three-week history of right lateral knee pain. She has never hadpain like this before. The pain occurs when she puts direct pressure on her knee, such as when she is kneeling on the floor and stands up. She has a very sharp and brief pain in the area where pressure is applied. There was no specific injury. It occurs intermittently. She can walk without any difficulty or pain. There is no swelling or redness in her knee. Patient also complains of very mild right-sided low back pain without radiation to her lower extremities. No numbness or weakness of lower extremities. No bowel or bladder symptoms. Also, the patient would like to try a sleeping medication. She has tried multiple sleeping medications in the past. Currently she is taking Ambien CR without side effects, but it is becoming less effective over time.. She does have a history of depression, but this is stable. GEN: NAD/AAO VITALS: Reviewed. MS: Left knee has full range of motion. No effusion, erythema, bruising, or tenderness. No laxity with varus or valgus stress. Anterior drawer is negative. Negative Juan Antonio's. BACK: Mild tenderness to palpation of right low back. No spinal tenderness. Negative SLR bilaterally. NEURO: DTRs 2+ bilateral lower extremities. PSYCH: Normal mood and affect. Active Problems 1. Anxiety (300.00) (F41.9) 2. Callus (700) (L84) 3. Constipation (564.00) (K59.00) 4. Depression (311) (F32.9) 5. Diabetic peripheral neuropathy (250.60,357.2) (E13.42,G62.9) 6. Esophageal reflux (530.81) (K21.9) 7. History of motion sickness (V13.89) (Z87.898) 8. Hypertension (401.9) (I10) 9. Insomnia (780.52) (G47.00) 10. Morbid obesity (278.01) (E66.01) 11. Obstructive sleep apnea (327.23) (G47.33) 12. Paronychia of finger (681.02) (L03.019) 13. Type 2 diabetes mellitus (250.00) (E11.9) Past [...] BY MOUTH TWICE A DAY NEEDED; Therapy: 23Ktb1476 to (Evaluate:30Dec2014) Requested for: 72Vqw0960; Last Rx:69Ynw1070 Ordered 2. Enpresse-28 Oral Tablet; Take 1 tablet daily as directed; Therapy: 30May2012 to (Evaluate:28Dec2014) Requested for: 15Jun2014; Last Rx:02Xow6847 Ordered 3. Hydrochlorothiazide 25 MG Oral Tablet; TAKE ONE TABLET BY MOUTH EVERY DAY; Therapy: 20May2012 to (Evaluate:30Dec2014) Requested for: 79Kqe4310; Last Rx:66Eqx2015 Ordered 4. LORazepam 0.5 MG Oral Tablet; Take 1 tablet twice a day; Therapy: 09Ppn8978 to (Evaluate:13Aug2014) Requested for: 23Vrl4213; Last Rx:40Ydx0996 Ordered 5. MetFORMIN HCl - 500 MG Oral Tablet; TAKE 1 TABLET EVERY MORNING AND THEN TAKE 2 TABLETS AT BEDTIME; Therapy: 24Dec2011 to (Evaluate:03Edu2554) Requested for: 29Jul2014; Last Rx:29Jul2014 Ordered 6. Multivitamins TABS; Therapy: (Recorded:23Sep2013) to Recorded 7. Pantoprazole Sodium 40 MG Oral Tablet Delayed Release; TAKE ONE TABLET BY MOUTH EVERY DAY; Therapy: 08Jun2012 to (Evaluate:61Mrf2243) Requested for: 61Hiy2819; Last Rx:67Lit1691 Ordered 8. Polyethylene Glycol 3350 Oral Powder; MIX 1 CAPFUL (17GM) IN 8 OUNCES OF WATER, JUICE, OR TEA AND DRINK DAILY; Therapy: 39Lvv5896 to (Evaluate:85Pwq6150) Requested for: 03Jul2014; Last Rx:73Vmd1805 Ordered 9. Venlafaxine HCl ER 75 MG Oral Capsule Extended Release 24 Hour; Take 1 capsule in am and 2 capsule in evening; Therapy: 13May2012 to (Evaluate:74Yqb2339) Requested for: 05Aug2014; Last Rx:05Aug2014 Ordered 10. Vitamin D3 1000 UNIT Oral Tablet; Therapy: (Recorded:23Sep2013) to Recorded 11. Zolpidem Tartrate ER 12.5 MG Oral Tablet Extended Release (Ambien CR); TAKE 1 TABLET BY MOUTH AT BEDTIME NEEDED FOR SLEEP; Therapy: 01Dec2013 to (Evaluate:22Kub6821) Requested for: 29Jul2014; Last Rx:29Jul2014 Ordered Allergies 1. No Known Drug Allergies Immunizations Influenza --- Series1: 19Jun2012 Vitals Recorded by : Marcella Gant at 11Aug2014 03:11PM Heart Rate 90 Respiration 18 Systolic 140 Diastolic 95 Height 5 ft 6 in Weight 284 lb BMI Calculated 45.84 BSA Calculated 2.32 Assessment 1. Insomnia (780.52) (G47.00) 2. Right knee pain (719.46) (M25.561) 3. Acute low back pain (724.2) (M54.5) Plan Acute low back pain, Right knee pain 1. Start: Methocarbamol 750 MG Oral Tablet; TAKE 1 TO 2 TABLETS 3 TIMES DAILY NEEDED FOR MUSCLE SPASM Rx By: Reji Sprague; Dispense: 5 Days ; #:30 Tablet; Refill: 1; For: Acute low back pain, Right knee pain; TEX = N; Verified Transmission to [facility] #[id number]; Last Updated By: [employer]; 08/11/2014 3:34:31 PM Insomnia 2. Stop: Zolpidem Tartrate ER 12.5 MG Oral Tablet Extended Release (Ambien CR 12.5 MG Oral Tablet Extended Release) Rx By: Reji Sprague; Dispense: 30 Days ; #:30 Tablet Extended Release; Refill: 5; For: Insomnia; TEX = N; Record 3. Start: Zaleplon 5 MG Oral Capsule; TAKE 1-2 CAPSULES AT BEDTIME NEEDED Rx By: Reji Sprague; Dispense: 30 Days ; #:60 Capsule; Refill: 1; For: Insomnia; TEX = N; Print Rx Right knee pain 4. Start: Ibuprofen 800 MG Oral Tablet; TAKE 1 TABLET 3 TIMES DAILY WITH FOOD NEEDED for pain Rx By: Reji Sprague; Dispense: 10 Days ; #:30 Tablet; Refill: 5; For: Right knee pain; TEX = N; Verified Transmission to [facility] #[id number]; Last Updated By: [employer]; 08/11/2014 3:34:30 PM XY Knee 1 to 2 View Rt NC Status: Resulted - Requires Verification Done: 23Jul2024 12:00AM Order Comments: 43 year old female with 1 month history of right lateral knee pain. Due: 29Zsk1550;Ordered; For: Right knee pain; Ordered By: Reji Sprague Discussion/Summary #1 Insomnia: Stop Ambien CR. Trial of Sonata. Discussed sleep hygiene. #2 Acute nonradicular low back pain: Discussed conservative treatment. Gave rehabilitation handout.Methocarbamol as needed. #3 Right lateral knee pain: Check x-ray today. Take ibuprofen 800 mg t.i.d. for 7 days. Ice the area 2-3 times daily. Avoid aggravating factors. Followup as needed. Signatures Electronically signed by : Reji Sprague M.D.; Aug 11 2014 5:46PM SUPERVISOR REWORK (Author) documented in this encounter Plan of Treatment Upcoming Encounters Date Type Department Care Team (Late st Contact Info) Description 07/25/2024 10:00 AM SUPERVISOR REWORK Office Visit [facility] Medical Group Family & Internal Medicine - [place] [address] [place] [address] Keyonna Armstrong APNP [address] [place] [address] 07/31/2024 10:15 AM SUPERVISOR REWORK Office Visit [facility] [address] [place] [address] Pepe Mitchell MD [facility]. [facility] [address] [place] [address] documented as of this encounter Procedures Procedure Name Priority Date/Time Associated Diagnosis Comments SURG XR KNEE RT 1-2V Routine 08/11/2014 3:37 PM SUPERVISOR REWORK documented in this encounter Results * SURG XR KNEE RT 1-2V (08/11/2014 3:37 PM SUPERVISOR REWORK) Anatomical Region Laterality Modality Knee IMAGES ONLY 08/11/2014 3:37 PM SUPERVISOR REWORK 08/11/2014 3:37 PM SUPERVISOR REWORK Narrative 08/11/2014 3:48 PM SUPERVISOR REWORK [facility] Medical Group ?? [facility] ?? [address] ?? [place], [place] ??[address] ? KIERA EVANGELISTA MD: REJI SPRAGUE MD, REF ?? Acct: [id number] ?? Hospital Hospital Act #: [id number] ?? : 1970 Pt Type: REG REF ?? Sex: F Ord Site: [facility] ? Study Date Accession # Procedure Code Procedure ?? 08/11/14 [id number] XY Knee 1 to 2 View Rt NC ? Signed ? Examination: Right knee ? Exam time: 1538 hours ? Clinical history: Right knee pain for one month on lateral side. ? Comparison: No prior exam ? Technique: AP and lateral views ? Findings: No radiographic evidence of joint effusion. Small superior dorsal patellar ?? hypertrophic spur. No evidence of medial or lateral marginal osteophytes. Medial and lateral ?? joint spaces appear within normal limits. No evidence of acute fracture, focal bone lesions, ?? or abnormal periosteal reactions. No evidence of focal abnormal soft tissue densities. No ?? radiographic evidence of joint effusion. ? IMPRESSION: ?? No acute abnormality identified. Minimal degenerative change patellofemoral compartment. ? Electronically Signed By: ART NIXON MD 08/11/14 154 ? Dictated On: 08/11/14 154 ?? Interpreted By: ART NIXON MD ?? Transcribed On: 08/11/141542 - INFCE ? CC: ? REJI SPRAGUE MD, REF Radiology image is available. Click on Image Link above. Procedure Note Reji Sprague MD - 05/16/2018 [facility] Medical Group [facility] [address] [place] [address] KIERA EVANGELISTA MD: REJI SPRAGUE MD, REF Acct: [id number] [facility] Hospital Act #: [id number] : 1970 Pt Type: REG REF Sex: F Ord Site: [facility] Study Date Accession # Procedure Code Procedure 08/11/14 [id number] XY Knee 1 to 2 View Rt NC Signed Examination: Right knee Exam time: 1538 hours Clinical history: Right knee pain for one month on lateral side. Comparison: No prior exam Technique: AP and lateral views Findings: No radiographic evidence of joint effusion. Small superiordorsal patellar hypertrophic spur. No evidence of medial or lateral marginal osteophytes.Medial and lateral joint spaces appear within normal limits. No evidence of acute fracture,focal bone lesions, or abnormal periosteal reactions. No evidence of focal abnormal softtissue densities. No radiographic evidence of joint effusion. IMPRESSION: No acute abnormality identified. Minimal degenerative changepatellofemoral compartment. Electronically Signed By: ART NIXON MD 08/11/141544 Dictated On: 08/11/141542 Interpreted By: ART NIXON MD Transcribed On: 08/11/14 154 - INFCE CC: REJI SPRAGUE MD, REF Radiology image is available. Click on Image Link above. Reji Sprague MD IMAGES ONLY Final Result documented in this encounter Visit Diagnoses Not on filedocumented in this encounter Care Teams Butcher All Round Relationship Specialty Start Date End Date Reji Sprague MD PCP - General 04/25/16 09/14/16 Reji Sprague MD PCP - General 05/14/15 04/24/16 Priyanka Zepeda MD PCP - General 04/22/13 05/13/15 documented as of this encounter
--- OUTSIDE RECORDS SUMMARY | 2024-07-10 23:02 | XMS_ITS | Encounter Summary ---
Author Organization [facility] Address [address] [place] [address]. [place], [place] [id number] [place] [address] Care Team Providers Care Intermodal Owner Operator Truck Driver Name Role Phone Royer Hidalgo MD Primary Care Provider [phone] Royer Hidalgo MD Primary Care Provider [phone] Priyanka Zepeda MD Primary Care Provider Unavailab le Encounter Details Date Type Department Care Team (Late st Contact Info) Description 02/13/2014 Abstract [facility] Medical Group Family Medicine - [address] [phone] Royer Hidalgo MD [address] [facility] [place] [address] Social History Tobacco Use Types Packs/Day Years Used Date Smoking Tobacco: Never Assessed Comments Unknown Sex and Gender Information Value Date Recorded Sex Assigned at Not on file Legal Sex Female 5:47 PM CDT Gender Identity Female 07/17/2022 10:27 AM PIT SHOVEL OPERATOR Sexual Orientation Straight 07/17/2022 10 :27 AM PIT SHOVEL OPERATOR documented as of this encounter Last Filed Vital Signs Vital Sign Reading Time Taken Comments Blood Pressure 148/98 02/13/2014 11:34 AM CDT Pulse 82 02/13/2014 11:34 AM CDT Temperature - - Respiratory Rate - - Oxygen Saturation - - Inhaled Oxygen Concentration - - Weight 138.3 kg (305 lb) 02/13/2014 11:34 AM CDT Height 167.6 cm (5' 6) 02/13/2014 11:34 AM CDT Body Mass Index 49.23 02/13/2014 11:34 AM CDT documented in this encounter Progress Notes * Royer Hidalgo MD - 02/13/2014 11:30 AM CDT Reason For Visit Chronic Recheck Visit Chief Complaint Requesting anti-nausea meds for upcoming flight History of Present Illness This 43-year-old female is here to get a prescription for motion sickness due to an upcoming trip. Her motion sickness occurs primarily with flying which she will be doing for this trip. She had his scopolamine patches in the past and these have worked fairly well, but they do fall off pretty easily. She has never tried any other medications for this before. The patient also would like to switch back to regular Ambien from Ambien CR which did not work very well. She continues to have significant insomnia and has tried Ambien, Ambien CR, melatonin, amitriptyline, and trazodone over the last few months. Finally, she would like a refill of Protonix which she takes as needed for esophageal reflux. Review systems: See history of present illness. PHYSICAL EXAM GEN: NAD, well-appearing and well-nourished. PULM Respiratory Effort: No increased work of breathing, retractions, or signs of distress. Auscultation of Lungs: Clear to auscultation without wheezes, rhonchi, or decreased BS. CV Auscultation: Normal rate and rhythm. NL S1/S2 without M/R/G. Pedal Pulses: 2+ bilaterally. Extremities: No edema or varicosities. Active Problems 1. Anxiety (300.00) (F41.9) 2. Callus (700) (L84) 3. Depression (311) (F32.9) 4. Diabetic peripheral neuropathy (250.60,357.2) (E13.42,G62.9) 5. Esophageal reflux (530.81) (K21.9) 6. Hypertension (401.9) (I10) 7. Insomnia (780.52) (G47.00) 8. Morbid obesity (278.01) (E66.01) 9. Obstructive sleep apnea (327.23) (G47.33) 10. Paronychia of finger (681.02) (L03.019) 11. Type 2 diabetes mellitus (250.00) (E11.9) Past Medical History 1. Anxiety (300.00) (F41.9) Surgical History 1. History of Gastric Surgery For Morbid Obesity Family History Mother 1. Family history of Hypertension (V17.49) Father 2. Family history of Diabetes Mellitus (V18.0) Maternal Grandmother 3. Family history of Stroke Syndrome (V17.1) Social History ?? Never a smoker Current Meds 1. Amitriptyline HCl - 50 MG Oral Tablet; TAKE 1 TABLET AT BEDTIME; Therapy: 67Ffv8519 to (Evaluate:93Toz2212) Requested for: 07Djt3018; Last Rx:07Fmx0786; Status: ACTIVE - Renewal Denied Ordered 2. Enpresse-28 Oral Tablet; Take 1 tablet daily as directed; Therapy: 30May2012 to (Evaluate:18Jun2014) Requested for: 20Lce2490; Last Rx:67Zjb4874 Ordered 3. Gas Relief CAPS; Therapy: (Recorded:23Sep2013) to Recorded 4. Hydrochlorothiazide 25 MG Oral Tablet; TAKE ONE TABLET BY MOUTH EVERY DAY; Therapy: 20May2012 to (Evaluate:85Nwt7330) Requested for: 16Ymy6705; Last Rx:21Bhf5825 Ordered 5. Hydrocodone-Acetaminophen 5-325 MG Oral Tablet; TAKE 1 TO 2 TABLETS EVERY 4 TO 6 HOURS NEEDED FOR PAIN. NO MORE THAN 8 TABLETS PER DAY; Therapy: 25Sep2013 to (Evaluate:27Sep2013); Last Rx:25Sep2013 Ordered 6. LORazepam 0.5 MG Oral Tablet; TAKE 1 TABLET BY MOUTH TWICE A DAY; Therapy: 74Vic8180 to (Evaluate:17Tjf4420) Requested for: 81Fyr1366; Last Rx:28Upv8753 Ordered 7. MetFORMIN HCl - 500 MG Oral Tablet; Therapy: 24Dec2011 to Recorded 8. Multivitamins TABS; Therapy: (Recorded:23Sep2013) to Recorded 9. Pantoprazole Sodium 40 MG Oral Tablet Delayed Release; TAKE ONE TABLET BY MOUTH EVERY DAY; Therapy: 08Jun2012 to (Evaluate:00Dxc6875) Requested for: 24Dec2013; Last Rx:24Dec2013 Ordered 10. TraZODone HCl - 50 MG [...] BEDTIME NEEDED FOR SLEEP; Therapy: 01Dec2013 to (Evaluate:01Mar2014) Requested for: 49Zsb9191; Last Rx:37Ftw6736 Ordered Allergies 1. No Known Drug Allergies Immunizations Influenza --- Series1: 19Jun2012 Vitals Recorded by : Marcella Gant at 81Lrz2843 11:34AM Heart Rate 82 Respiration 18 Systolic 148 Diastolic 98 Height 5 ft 6 in Weight 305 lb BMI Calculated 49.23 BSA Calculated 2.39 Assessment 1. History of motion sickness (V13.89) (Z87.898) 2. Esophageal reflux (530.81) (K21.9) 3. Insomnia (780.52) (G47.00) Plan Esophageal reflux 1. Renew: Pantoprazole Sodium 40 MG Oral Tablet Delayed Release; TAKE ONE TABLET BY MOUTH EVERY DAY Rx By: Royer Hidalgo; Dispense: 30 Days ; #:30 Tablet Delayed Release; Refill: 11; For: Esophageal reflux; TEX = N; Verified Transmission to [facility] #2510; Last Updated By: [employer]; 02/13/2014 11:58:56 AM History of motion sickness 2. Start: Transderm-Scop 1.5 MG Transdermal Patch 72 Hour; APPLY 1 PATCH EVERY 3 DAYS Rx By: Royer Hidalgo; Dispense: 0 Days ; #:1 X 4 Patch 72 Hour Box; Refill: 0; For: History of motion sickness; TEX = N; Verified Transmission to [facility] #2510; Last Updated By: [employer];02/13/2014 11:58:57 AM Insomnia 3. Stop: TraZODone HCl - 50 MG Oral Tablet Rx By: Royer Hidalgo; Dispense: 0 Days ; #:30 Tablet; Refill: 0; For: Insomnia; TEX = N; Transmitted To: [facility] 361 4. Stop: Zolpidem Tartrate ER 12.5 MG Oral Tablet Extended Release (Ambien CR 12.5 MG Oral Tablet Extended Release) Rx By: Royer Hidalgo; Dispense: 30 Days ; #:30 Tablet Extended Release; Refill: 0; For: Insomnia; TEX = N; Print Rx 5. Start: Zolpidem Tartrate 10 MG Oral Tablet; TAKE 1 TABLET AT BEDTIME NEEDED FOR INSOMNIA Rx By: Royer Hidalgo; Dispense: 30 Days ; #:30 Tablet; Refill: 5; For: Insomnia; TEX = N; Print Rx 6. Renew: Amitriptyline HCl - 50 MG Oral Tablet; TAKE 1 TABLET AT BEDTIME Rx By: Royer Hidalgo; Dispense: 30 Days ; #:30 Tablet; Refill: 1; For: Insomnia; TEX = N; Failed Transmission to [facility] #2510; Last Updated By: [employer]; 02/13/2014 2:59:29 PM Discussion/Summary #1 Insomnia: Stop Ambien CR. Ambien 10 mg each night as needed. Continue amitriptyline. May also take melatonin 5 mg [id number] each night. #2 Motion sickness: Scopolamine patch refill. If this is expensive, consider Phenergan or meclizine. Warned about drowsiness with all 3 medications. #3 Esophageal reflux: Stable. Refilled Protonix. Followup as needed. Signatures Electronically signed by : Royer Hidalgo M.D.; Feb 13 2014 3:06PM PIT SHOVEL OPERATOR (Author) documented in this encounter Plan of Treatment Upcoming Encounters Date Type Department Care Team (Late st Contact Info) Description 07/25/2024 10:00 AM PIT SHOVEL OPERATOR Office Visit [facility] Medical Group Family & Internal Medicine - [place] [address] [place] [address] Keyonna Armstrong APNP [address] [place] [address] 07/31/2024 10:15 AM PIT SHOVEL OPERATOR Office Visit [facility] [address] [place] [address] Pepe Mitchell MD [address] [facility]. [place] [address] [place] [address] documented as of this encounter Visit Diagnoses Not on filedocumented in this encounter Care Teams Intermodal Owner Operator Truck Driver Relationship Specialty Start Date End Date Royer Hidalgo MD PCP - General 04/25/16 09/14/16 Royer Hidalgo MD PCP - General 05/14/15 04/24/16 Priyanka Zepeda MD PCP - General 04/22/13 05/13/15 documented as of this encounter
--- OUTSIDE RECORDS SUMMARY | 2024-07-10 23:02 | XMS_ITS | Encounter Summary ---
Author Organization [facility] Address [address] [place] [address]. [place], [place] [address] [place] [address] Care Team Providers Care Admitting Manager Name Role Phone Royer Hidalgo MD Primary Care Provider [phone] Royer Hidalgo MD Primary Care Provider [phone] Priyanka Zepeda MD Primary Care Provider Unavailab le Priyanka Zepeda MD Primary Care Provider Unavailab le Encounter Details Date Type Department Care Team (Late st Contact Info) Description 06/19/2012 Abstract [facility] Medical Group Family & Internal Medicine [address] [phone] Priyanka Zepeda MD Social History Tobacco Use Types Packs/Day Years Used Date Smoking Tobacco: Never Assessed Comments Unknown Sex and Gender Information Value Date Recorded Sex Assigned at Not on file Legal Sex Female 5:47 PM CDT Gender Identity Female 07/17/2022 10:27 AM VEGETABLE PACKER Sexual Orientation Straight 07/17/2022 10 :27 AM VEGETABLE PACKER documented as of this encounter Last Filed Vital Signs Vital Sign Reading Time Taken Comments Blood Pressure 151/102 06/19/2012 10:18 AM VEGETABLE PACKER Pulse 111 06/19/2012 10:18 AM VEGETABLE PACKER Temperature - - Respiratory Rate - - Oxygen Saturation - - Inhaled Oxygen Concentration - - Weight 146.5 kg (323 lb) 06/19/2012 10:18 AM VEGETABLE PACKER Height 167.6 cm (5' 6) 06/19/2012 10:18 AM VEGETABLE PACKER Body Mass Index 52.13 06/19/2012 10:18 AM VEGETABLE PACKER documented in this encounter Progress Notes * Priyanka Zepeda MD - 06/19/2012 10:00 AM CST Reason For Visit Reason For Visit: New Patient Visit Chief Complaint Chief Complaint Free Text: get established. wants to change her ambien it doesnt work anymore. History of Present Illness HPI Free Text: she is a new pt coming with a few issues, but no major complaints today. she has insomnia and the ambien is not working. she wants to try something else. she is a adoptive mother to 5 children. she had gastric bypass 10 yrs ago. she has gained a lot of wt since then. dm and htn are stable. on meds for a while. pt has a hx of obstuctive sleep apnea. has had machine for a while. Review of Systems Complete ROS Female: Constitutional, Eyes, ENT, Cardiovascular, Respiratory, Gastrointestinal, Genitourinary, Integumentary, Neurological, Psychiatric, Endocrine and Hematologic review of systems normal except as noted. musculoskeletal symptoms Other Symptoms: ankle pain. Active Problems 1. Depression 311 2. Hypertension 401.9 3. Insomnia 780.52 Surgical History 1. History of Gastric Surgery [...] Record; Last Updated By: Demetra Carlson 6. Trivora (28) Oral Tablet; Therapy: 30May2012 to Recorded; Dispense: 28 Days ; #:28 TABS; Refill: 0; Record; Last Updated By: Demetra Carlson 7. Venlafaxine HCl ER 75 MG Oral Capsule Extended Release 24 Hour; Therapy: 13May2012 to Recorded; Dispense: 90 Days ; #:255 CP24; Refill: 0; Record; Last Updated By: Demetra Carlson 8. Zolpidem Tartrate ER 12.5 MG Oral Tablet Extended Release; Therapy: 23May2012 to Recorded; Dispense: 30 Days ; #:30 TBCR; Refill: 0; Record; Last Updated By: Demetra Carlson Allergies 1. No Known Drug Allergies No Known Drug Allergies Vitals Vital Signs [Data Includes: Current Encounter] 19Jun2012 10:18AM Heart Rate 111 Respiration 18 Systolic 151 Diastolic 102 BMI Calculated 51.91 BSA Calculated 2.46 Height 5 ft 6 in Weight 323 lb O2 Saturation 98 Physical Exam Constitutional General appearance: Abnormal. Obese. Head and Face Head and face: Normal. Palpation of the face and sinuses: No sinus tenderness. Eyes Conjunctiva and lids: No swelling, erythema or discharge. Pupils and irises: Equal, round, reactive to light. Ears, Nose, Mouth, and Throat External inspection of ears and nose: Normal. Otoscopic examination: Tympanic membranes translucent with normal light reflex. Canals patent without erythema. Hearing: Normal. Nasal mucosa, septum, and turbinates: Normal without edema or erythema. Lips, teeth, and gums: Normal, good dentition. Oropharynx: Normal with no erythema, edema, exudate or lesions. Neck Neck: Supple, symmetric, trachea midline, no masses. Pulmonary Respiratory effort: No increased work of breathing or signs of respiratory distress. Auscultation of lungs: Clear to auscultation. Cardiovascular Auscultation of heart: Normal rate and rhythm, normal S1 and S2, no murmurs. Musculoskeletal Gait and station: Normal. Digits and nails: Normal without clubbing or cyanosis. Joints, bones, and muscles: Normal. Range of motion: Normal. Stability: Normal. Muscle strength/tone: Normal. Skin Skin and subcutaneous tissue: Normal without rashes or lesions. Palpation of skin and subcutaneous tissue: Normal turgor. Psychiatric Judgment and insight: Normal. Orientation to person, place, and time: Normal. Recent and remote memory: Intact. Mood and affect: Normal. Assessment 1. Depression 311 2. Hypertension 401.9 3. Vaccines Prophylactic Need Against Influenza V04.81 4. Obstructive Sleep Apnea 327.23 Plan 1. Temazepam 30 MG Oral Capsule; TAKE 1 CAPSULE AT BEDTIME NEEDED FOR SLEEP; Therapy: 19Jun2012 to (Evaluate:18Aug2012); Last Rx:19Jun2012 Ordered; For: Insomnia (780.52); Rx By: Priyanka Zepeda; Dispense: 30 Days ; #:30 Capsule; Refill: 1; Print Rx 2. Influenza; INJECT 0.5 ML Intramuscular; Dose: 0.5ml; Route: Intramuscular; Site: Left Deltoid; Done: 19Jun2012 10:21AM; Status: Complete Ordered; Vaccines Prophylactic Need Against Influenza (V04.81); Ordered By:Priyanka Zepeda; EffectiveDate:19Jun2012; Last Updated By: Demetra Carlson Discussion/Summary Discussion Summary Free Text: we will need to get aic and lipids in 3 mnths. Signatures Electronically signed by : Priyanka Zepeda M.D.; Aug 02 2012 7:11AM (Author) TABLE PACKER documented in this encounter Plan of Treatment Upcoming Encounters Date Type Department Care Team (Late st Contact Info) Description 07/25/2024 10:00 AM VEGETABLE PACKER Office Visit [facility] Medical Group Family & Internal Medicine - [place] [address] [place] [address] Keyonna Armstrong APNP [address] [place] [address] 07/31/2024 10:15 AM VEGETABLE PACKER Office Visit [facility], [facility] [address] [place], [place] [phone] Pepe Mitchell MD Three [facility]. [facility] [address] [place], [place] [phone] documented as of this encounter Visit Diagnoses Not on filedocumented in this encounter Care Teams Admitting Manager Relationship Specialty Start Date End Date Royer Hidalgo MD PCP - General 04/25/16 09/14/16 Royer Hidalgo MD PCP - General 05/14/15 04/24/16 Priyanka Zepeda MD PCP - General 04/22/13 05/13/15 Priyanka Zepeda MD PCP - General 10/28/12 04/21/13 documented as of this encounter
--- OUTSIDE RECORDS SUMMARY | 2024-07-10 23:02 | XMS_ITS | Encounter Summary ---
Author Organization [facility] Address [address] [place] [address]. [place], [place] [address] [place] [address] Care Team Providers Care Social Media Marketing Specialist Name Role Phone Royer Hidalgo MD Primary Care Provider [phone] Royer Hidalgo MD Primary Care Provider [phone] Priyanka Zepeda MD Primary Care Provider Unavailab le Priyanka Zepeda MD Primary Care Provider Unavailab le Encounter Details Date Type Department Care Team (Late st Contact Info) Description 09/12/1997 Abstract [facility] [place], [place] [id number] , Generic [facility] Social History Tobacco Use Types Packs/Day Years Used Date Smoking Tobacco: Never Assessed Comments Unknown Sex and Gender Information Value Date Recorded Sex Assigned at Not on file Legal Sex Female 5:47 PM CDT Gender Identity Female 07/17/2022 10:27 AM ABSTRACT CHECKER Sexual Orientation Straight 07/17/2022 10 :27 AM ABSTRACT CHECKER documented as of this encounter Plan of Treatment Upcoming Encounters Date Type Department Care Team (Late st Contact Info) Description 07/25/2024 10:00 AM ABSTRACT CHECKER Office Visit [facility] Medical Group Family & Internal Medicine - [place] [address] [place] [address] Keyonna Armstrong APNP [address] [place] [address] 07/31/2024 10:15 AM ABSTRACT CHECKER Office Visit [facility], [address] [address] Pepe Mitchell MD Three [facility]. [facility] [address] [place] [address] documented as of this encounter Visit Diagnoses Not on filedocumented in this encounter Care Teams Social Media Marketing Specialist Relationship Specialty Start Date End Date Royer Hidalgo MD PCP - General 04/25/16 09/14/16 Royer Hidalgo MD PCP - General 05/14/15 04/24/16 Priyanka Zepeda MD PCP - General 04/22/13 05/13/15 Priyanka Zepeda MD PCP - General 10/28/12 04/21/13 documented as of this encounter
--- OUTSIDE RECORDS SUMMARY | 2024-07-10 23:02 | XMS_ITS | Encounter Summary ---
Author Organization [facility] Address [facility]ly [facility]. [place], [place] [address] [place] [address] Care Team Providers Care Outsole Molder Name Role Phone Royer Hidalgo MD Primary Care Provider [phone] Royer Hidalgo MD Primary Care Provider [phone] Priyanka Zepeda MD Primary Care Provider Unavailab le Encounter Details Date Type Department Care Team (Latest Contact Info) Description 11/24/2014 Abstract [facility] Medical Group Social History Tobacco Use Types Packs/Day Years Used Date Smoking Tobacco: Never Assessed Comments Unknown Sex and Gender Information Value Date Recorded Sex Assigned at Not on file Legal Sex Female 5:47 PM CDT Gender Identity Female 07/17/2022 10:27 AM NITRATE OPERATOR Sexual Orientation Straight 07/17/2022 10 :27 AM NITRATE OPERATOR documented as of this encounter Plan of Treatment Upcoming Encounters Date Type Department Care Team (Late st Contact Info) Description 07/25/2024 10:00 AM NITRATE OPERATOR Office Visit [facility] Medical Group Family & Internal Medicine [facility] [address] [place] [address] Keyonna Armstrong APNP [address] [place] [address] 07/31/2024 10:15 AM NITRATE OPERATOR Office Visit [facility] [place] [address] [place], [place] [phone] Pepe Mitchell MD [facility]. [place] [address] [place], [place] [id number] documented as of this encounter Visit Diagnoses Not on filedocumented in this encounter Care Teams Outsole Molder Relationship Specialty Start Date End Date Royer Hidalgo MD PCP - General 04/25/16 09/14/16 Royer Hidalgo MD PCP - General 05/14/15 04/24/16 Priyanka Zepeda MD PCP - General 04/22/13 05/13/15 documented as of this encounter
--- OUTSIDE RECORDS SUMMARY | 2024-07-10 23:02 | XMS_ITS | Encounter Summary ---
Author Organization [facility] Address [facility]. [place], [place] [address] [place] [address] Care Team Providers Care Optical Fabricator Name Role Phone Royer Hidalgo MD Primary Care Provider [phone] Royer Hidalgo MD Primary Care Provider [phone] Priyanka Zepeda MD Primary Care Provider Unavailab le Priyanka Zepeda MD Primary Care Provider Unavailab le Encounter Details Date Type Department Care Team (Late st Contact Info) Description 02/22/2000 Abstract [facility] [place] [address] Claudia Kidd MD Social History Tobacco Use Types Packs/Day Years Used Date Smoking Tobacco: Never Assessed Comments Unknown Sex and Gender Information Value Date Recorded Sex Assigned at Not on file Legal Sex Female 5:47 PM CDT Gender Identity Female 07/17/2022 10:27 AM CHILDCARE CENTER 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 Sexual Orientation Straight 07/17/2022 10 :27 AM CHILDCARE CENTER 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 documented as of this encounter Plan of Treatment Upcoming Encounters Date Type Department Care Team (Late st Contact Info) Description 07/25/2024 10:00 AM CHILDCARE CENTER 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 Office Visit [facility] Medical Group Family & Internal Medicine - [place] [address] [place] [address] Keyonna Armstrong APNP [address] [place] [address] 07/31/2024 10:15 AM CHILDCARE CENTER 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 Office Visit [facility] [address] [facility] [address], [place] [address] [place] [address] Pepe Mitchell [facility] [address] [place] [address] documented as of this encounter Visit Diagnoses Not on filedocumented in this encounter Care Teams Optical Fabricator Relationship Specialty Start Date End Date Royer Hidalgo MD PCP - General 04/25/16 09/14/16 Royer Hidalgo MD PCP - General 05/14/15 04/24/16 Priyanka Zepeda MD PCP - General 04/22/13 05/13/15 Priyanka Zepeda MD PCP - General 10/28/12 04/21/13 documented as of this encounter
--- OUTSIDE RECORDS SUMMARY | 2024-07-10 23:02 | XMS_ITS | Encounter Summary ---
Author Organization [facility] Address [facility]6 [facility]. [place], [place] [address] [place] [address] Care Team Providers Care Airworthiness Inspector Name Role Phone Royer Hidalgo MD Primary Care Provider [phone] Royer Hidalgo MD Primary Care Provider [phone] Priyanka Zepeda MD Primary Care Provider Unavailab le Encounter Details Date Type Department Care Team (Latest Contact Info) Description 04/16/2014 Abstract [facility] Medical Group Royer Hidalgo MD [address] [facility] [place] [address] Social History Tobacco Use Types Packs/Day Years Used Date Smoking Tobacco: Never Assessed Comments Unknown Sex and Gender Information Value Date Recorded Sex Assigned at Not on file Legal Sex Female 5:47 PM CDT Gender Identity Female 07/17/2022 10:27 AM SENIOR MEDICAL TRANSCRIPTIONIST Sexual Orientation Straight 07/17/2022 10 :27 AM SENIOR MEDICAL TRANSCRIPTIONIST documented as of this encounter Plan of Treatment Upcoming Encounters Date Type Department Care Team (Late st Contact Info) Description 07/25/2024 10:00 AM SENIOR MEDICAL TRANSCRIPTIONIST Office Visit [facility] Medical Group Family & Internal Medicine [facility] [address] [place] [address] Keyonna Armstrong APNP [address] [place] [address] 07/31/2024 10:15 AM SENIOR MEDICAL TRANSCRIPTIONIST Office Visit [facility], [address] [address] Pepe Mitchell MD [facility] [place] [address] [place] [address] documented as of this encounter Visit Diagnoses Not on filedocumented in this encounter Care Teams Airworthiness Inspector Relationship Specialty Start Date End Date Royer Hidalgo MD PCP - General 04/25/16 09/14/16 Royer Hidalgo MD PCP - General 05/14/15 04/24/16 Priyanka Zepeda MD PCP - General 04/22/13 05/13/15 documented as of this encounter
--- OUTSIDE RECORDS SUMMARY | 2024-07-10 23:02 | XMS_ITS | Encounter Summary ---
Author Organization [facility] Address [facility]. [place], [place] [address] [place] [address] Care Team Providers Care Purse Framer Name Role Phone Royer Hidalgo MD Primary Care Provider [phone] Royer Hidalgo MD Primary Care Provider [phone] Priyanka Zepeda MD Primary Care Provider Unavailab le Priyanka Zepeda MD Primary Care Provider Unavailab le Encounter Details Date Type Department Care Team (Latest Contact Info) Description 03/26/2013 Abstract [facility] Medical Group Social History Tobacco Use Types Packs/Day Years Used Date Smoking Tobacco: Never Assessed Comments Unknown Sex and Gender Information Value Date Recorded Sex Assigned at Not on file Legal Sex Female 5:47 PM CDT Gender Identity Female 07/17/2022 10:27 AM MIX CHEMIST Sexual Orientation Straight 07/17/2022 10 :27 AM MIX CHEMIST documented as of this encounter Plan of Treatment Upcoming Encounters Date Type Department Care Team (Late st Contact Info) Description 07/25/2024 10:00 AM MIX CHEMIST Office Visit [facility] Medical Group Family & Internal Medicine - [place] [address] [place] [address] Keyonna Armstrong APNP [address] [place] [address] 07/31/2024 10:15 AM MIX CHEMIST Office Visit [facility], [facility] [address] [place] [address] Pepe Mitchell MD [facility]. [place] [address] [place] [address] documented as of this encounter Visit Diagnoses Not on filedocumented in this encounter Care Teams Purse Framer Relationship Specialty Start Date End Date Royer Hidalgo MD PCP - General 04/25/16 09/14/16 Royer Hidalgo MD PCP - General 05/14/15 04/24/16 Priyanka Zepeda MD PCP - General 04/22/13 05/13/15 Priyanka Zepeda MD PCP - General 10/28/12 04/21/13 documented as of this encounter
--- OUTSIDE RECORDS SUMMARY | 2024-07-10 23:02 | XMS_ITS | Encounter Summary ---
Author Organization [facility] Address [facility]6 [facility]. [place], [place] [address] [place] [address] Care Team Providers Care Timing Inspector Name Role Phone Royer Hidalgo MD Primary Care Provider [phone] Royer Hidalgo MD Primary Care Provider [phone] Priyanka Zepeda MD Primary Care Provider Unavailab le Encounter Details Date Type Department Care Team (Latest Contact Info) Description 09/24/2013 Abstract [facility] Medical Group Royer Hidalgo MD [address] [facility] [place] [address] Social History Tobacco Use Types Packs/Day Years Used Date Smoking Tobacco: Never Assessed Comments Unknown Sex and Gender Information Value Date Recorded Sex Assigned at Not on file Legal Sex Female 5:47 PM CDT Gender Identity Female 07/17/2022 10:27 AM BAND ATTACHER Sexual Orientation Straight 07/17/2022 10 :27 AM BAND ATTACHER documented as of this encounter Plan of Treatment Upcoming Encounters Date Type Department Care Team (Late st Contact Info) Description 07/25/2024 10:00 AM BAND ATTACHER Office Visit [facility] Medical Group Family & Internal Medicine [facility] [address] [place] [address] Keyonna Armstrong APNP [address] [place] [address] 07/31/2024 10:15 AM BAND ATTACHER Office Visit [facility], [address] [address] Pepe Mitchell MD [facility] [place] [address] [place] [address] documented as of this encounter Visit Diagnoses Not on filedocumented in this encounter Care Teams Timing Inspector Relationship Specialty Start Date End Date Royer Hidalgo MD PCP - General 04/25/16 09/14/16 Royer Hidalgo MD PCP - General 05/14/15 04/24/16 Priyanka Zepeda MD PCP - General 04/22/13 05/13/15 documented as of this encounter
--- OUTSIDE RECORDS SUMMARY | 2024-07-10 23:02 | XMS_ITS | Encounter Summary ---
Author Organization [facility] Address [facility]6 [facility]. [place], [place] [address] [place] [address] Care Team Providers Care Building Estimator Name Role Phone Royer Hidalgo MD Primary Care Provider [phone] Royer Hidalgo MD Primary Care Provider [phone] Priyanka Zepeda MD Primary Care Provider Unavailab le Encounter Details Date Type Department Care Team (Latest Contact Info) Description 06/25/2013 Abstract [facility] Medical Group Social History Tobacco Use Types Packs/Day Years Used Date Smoking Tobacco: Never Assessed Comments Unknown Sex and Gender Information Value Date Recorded Sex Assigned at Not on file Legal Sex Female 5:47 PM CDT Gender Identity Female 07/17/2022 10:27 AM CONTAINER FINISHER Sexual Orientation Straight 07/17/2022 10 :27 AM CONTAINER FINISHER documented as of this encounter Plan of Treatment Upcoming Encounters Date Type Department Care Team (Late st Contact Info) Description 07/25/2024 10:00 AM CONTAINER FINISHER Office Visit [facility] Medical Group Family & Internal Medicine [facility] [address] [place] [address] Keyonna Armstrong APNP [address] [place] [address] 07/31/2024 10:15 AM CONTAINER FINISHER Office Visit [facility], [facility] [address] [place], [place] [phone] Pepe Mitchell MD [facility]. [place] [address] [place], [place] [phone] documented as of this encounter Visit Diagnoses Not on filedocumented in this encounter Care Teams Building Estimator Relationship Specialty Start Date End Date Royer Hidalgo MD PCP - General 04/25/16 09/14/16 Royer Hidalgo MD PCP - General 05/14/15 04/24/16 Priyanka Zepeda MD PCP - General 04/22/13 05/13/15 documented as of this encounter
--- OUTSIDE RECORDS SUMMARY | 2024-07-10 23:02 | XMS_ITS | Encounter Summary ---
Author Organization [facility] Address [address] [place] [address]. [place], [place] [address] [place] [address] Care Team Providers Care Childcare Teacher Name Role Phone Royer Hidalgo MD Primary Care Provider [phone] Royer Hidalgo MD Primary Care Provider [phone] Priyanka Zepeda MD Primary Care Provider Unavailab le Encounter Details Date Type Department Care Team (Latest Contact Info) Description 08/04/2014 Abstract [facility] Medical Group Social History Tobacco Use Types Packs/Day Years Used Date Smoking Tobacco: Never Assessed Comments Unknown Sex and Gender Information Value Date Recorded Sex Assigned at Not on file Legal Sex Female 5:47 PM CDT Gender Identity Female 07/17/2022 10:27 AM MEDIA EXECUTIVE Sexual Orientation Straight 07/17/2022 10 :27 AM MEDIA EXECUTIVE documented as of this encounter Progress Notes * Royer Hidalgo MD - 08/04/2014 9:47 AM CST Message Recorded as Task Date: 07/31/2014 02:14 PM, Created By: Bri Ruiz Task Name: Call Back Assigned To: Anupama Maddox Regarding Patient: Veronica Evangelista, Status: In Progress Comment: Bri Ruiz - 31 Jul 2014 2:14 PM TASK CREATED Caller: Self; Other; Pt. called and wanted an appt. for next week because she is having alot of pain and has pintched nerves in her lower back. [place] doesnt have any openings. So pt. wants to know what she should do? Or is this something we can squeeze her in for? Pt. would like a call back Anupama Maddox - 03 Aug 2014 9:57 AM TASK EDITED Left message for pt to call back Message: Spoke to pt, she has had some back pain for about 2 weeks. Pain is in lower right back, into hip and down her leg. Feels like a pinched nerve possibly. Appt scheduled for next week to discuss. Advised to use ice, Motrin or Aleve, rest, and would need to go to the ER if pain worsens. Signatures Electronically signed by : Royer Hidalgo M.D.; Aug 04 2014 12:29PM MEDIA EXECUTIVE (Author) documented in this encounter Plan of Treatment Upcoming Encounters Date Type Department Care Team (Late st Contact Info) Description 07/25/2024 10:00 AM MEDIA EXECUTIVE Office Visit [facility] Medical Group Family & Internal Medicine [address] [address] Keyonna Armstrong APNP [address] [place] [address] 07/31/2024 10:15 AM MEDIA EXECUTIVE Office Visit [facility] [address] [place] [address] Pepe Mitchell MD [facility] [address] [place] [address] documented as of this encounter Visit Diagnoses Not on filedocumented in this encounter Care Teams Childcare Teacher Relationship Specialty Start Date End Date Royer Hidalgo MD PCP - General 04/25/16 09/14/16 Royer Hidalgo MD PCP - General 05/14/15 04/24/16 Priyanka Zepeda MD PCP - General 04/22/13 05/13/15 documented as of this encounter
--- OUTSIDE RECORDS SUMMARY | 2024-07-10 23:02 | XMS_ITS | Encounter Summary ---
Author Organization [facility] Address [facility]. [place], [place] [address] [place] [address] Care Team Providers Care Health Unit Supervisor Name Role Phone Royer Hidalgo MD Primary Care Provider [phone] Ryoer Hidalgo MD Primary Care Provider [phone] Priyanka Zepeda MD Primary Care Provider Unavailab le Priyanka Zepeda MD Primary Care Provider Unavailab le Encounter Details Date Type Department Care Team (Late st Contact Info) Description 10/28/2012 Abstract [facility] [address] Priyanka Zepeda MD Social History Tobacco Use Types Packs/Day Years Used Date Smoking Tobacco: Never Assessed Comments Unknown Sex and Gender Information Value Date Recorded Sex Assigned at Not on file Legal Sex Female 5:47 PM CDT Gender Identity Female 07/17/2022 10:27 AM BATCH TESTER Sexual Orientation Straight 07/17/2022 10 :27 AM BATCH TESTER documented as of this encounter Plan of Treatment Upcoming Encounters Date Type Department Care Team (Late st Contact Info) Description 07/25/2024 10:00 AM BATCH TESTER Office Visit [facility] Medical Group Family & Internal Medicine - [place] [address] [place] [address] Keyonna Armstrong APNP [address] [place] [address] 07/31/2024 10:15 AM BATCH TESTER Office Visit [facility] THREE [facility] [place] [address] [place] [address] Pepe Mitchell MD Three [facility]. [facility] [address] [place] [address] documented as of this encounter Visit Diagnoses Diagnosis Hemorrhage Hemorrhage, unspecified documented in this encounter Care Teams Health Unit Supervisor Relationship Specialty Start Date End Date Royer Hidalgo MD PCP - General 04/25/16 09/14/16 Royer Hidalgo MD PCP - General 05/14/15 04/24/16 Priyanka Zepeda MD PCP - General 04/22/13 05/13/15 Priyanka Zepeda MD PCP - General 10/28/12 04/21/13 documented as of this encounter
--- OUTSIDE RECORDS SUMMARY | 2024-07-10 23:02 | XMS_ITS | Encounter Summary ---
Author Organization [facility] Address [facility] [place], [place] [address] [place] [address] Care Team Providers Care Director Financial Planning Name Role Phone Royer Hidalgo MD Primary Care Provider [phone] Royer Hidalgo MD Primary Care Provider [phone] Priyanka Zepeda MD Primary Care Provider Unavailab le Encounter Details Date Type Department Care Team (Latest Contact Info) Description 01/18/2015 Abstract [facility] Medical Group Royer Hidalgo MD [address] [facility] [facility] [place] [address] Social History Tobacco Use Types Packs/Day Years Used Date Smoking Tobacco: Never Assessed Comments Unknown Sex and Gender Information Value Date Recorded Sex Assigned at Not on file Legal Sex Female 5:47 PM CDT Gender Identity Female 07/17/2022 10:27 AM VICE PRESIDENT MARKETING & DEVELOPMENT Sexual Orientation Straight 07/17/2022 10 :27 AM VICE PRESIDENT MARKETING & DEVELOPMENT documented as of this encounter Progress Notes * Generic Conversion MD Marti - 01/18/2015 7:33 AM CDT Message Recorded as Task Date: 01/11/2015 09:31 AM, Created By: Bri Ruiz Task Name: Renew Medication Assigned To: [facility]-Nursing Team Regarding Patient: Veronica Evangelista, Status: Active Comment: Bri Ruiz - 11 Jan 2015 9:31 AM TASK CREATED Caller: Self; Renew Medication; Pt. stated that Zolpidem 10 MG has not been working and it is also not covered under her ins. anymore. Pt. said that Lunesta was covered and wanted to know if she could try this since Zolpidem is notworking.. [facility] [place] ArturoAnupama sullivan - 12 Jan 2015 9:12 AM TASK EDITED Are you willing to write for Lunesta? Looks like she has tried several different things. Pt is aware that you are out of the office. Thanks! Royer Hidalgo - 16 Jan 2015 3:49 PM TASK EDITED Ordered 2mg of Lunesta, #15. If ineffective, she can try the 3mg dose. Med ordered, will need to becalled in. Thanks! Message: Script for Lunesta called into [facility] /t Signatures Electronically signed by : Anupama Maddox, ; Jan 18 2015 7:36AM VICE PRESIDENT MARKETING & DEVELOPMENT (Author) documented in this encounter Plan of Treatment Upcoming Encounters Date Type Department Care Team (Late st Contact Info) Description 07/25/2024 10:00 AM VICE PRESIDENT MARKETING & DEVELOPMENT Office Visit [facility] Medical Group Family & Internal Medicine - [place] [address] [place] [address] Keyonna Armstrong APNP [address] [place] [address] 07/31/2024 10:15 AM VICE PRESIDENT MARKETING & DEVELOPMENT Office Visit [facility] THREE [facility] [place] [address] [place] [address] Pepe Mitchell MD Three [facility]. [place] [address] [place], [place] [address] documented as of this encounter Visit Diagnoses Not on filedocumented in this encounter Care Teams Director Financial Planning Relationship Specialty Start Date End Date Royer Hidalgo MD PCP - General 04/25/16 09/14/16 Royer Hidalgo MD PCP - General 05/14/15 04/24/16 Priyanka Zepeda MD PCP - General 04/22/13 05/13/15 documented as of this encounter
--- OUTSIDE RECORDS SUMMARY | 2024-07-10 23:02 | XMS_ITS | Encounter Summary ---
Author Organization [facility] Address [facility]. [place], [place] [address] [place] [address] Care Team Providers Care Donor Relations Manager Name Role Phone Royer Hidalgo MD Primary Care Provider [phone] Royer Hidalgo MD Primary Care Provider [phone] Priyanka Zepeda MD Primary Care Provider Unavailab le Encounter Details Date Type Department Care Team (Latest Contact Info) Description 12/17/2013 Abstract [facility] Medical Group , Claudia Gaines MD Social History Tobacco Use Types Packs/Day Years Used Date Smoking Tobacco: Never Assessed Comments Unknown Sex and Gender Information Value Date Recorded Sex Assigned at Not on file Legal Sex Female 5:47 PM CDT Gender Identity Female 07/17/2022 10:27 AM METAL RECLAMATION KETTLE TENDER Sexual Orientation Straight 07/17/2022 10 :27 AM METAL RECLAMATION KETTLE TENDER documented as of this encounter Progress Notes * Royer Hidalgo MD - 12/17/2013 1:47 PM CDT Message Recorded as Task Date: 12/16/2013 09:54 AM, Created By: Vicki Mcgill Task Name: Renew Medication Assigned To: [facility]- Nursing Team Regarding Patient: Veronica Evangelista, Status: Active Comment: Vicki Mcgill - 16 Dec 2013 9:54 AM TASK CREATED Caller: [facility], Pharmacist; Renew Medication; Request for refill on Amitriptyline 50MG Marcella Gant - 16 Dec 2013 1:27 PM TASK EDITED OK to fill? Pt is currently taking Ambien Royer Rosas - 17 Dec 2013 8:51 AM TASK EDITED Would not recommend both, concern for over sedation. Marcella Gant 17 Dec 2013 9:28 AM TASK EDITED Left message for pt to call back. Marcella Gant 17 Dec 2013 9:36 AM TASK REASSIGNED: Previously Assigned To Marcella Gant Melissa 17 Dec 2013 1:47 PM TASK EDITED Pt notified of above. Pt verbalized understanding, denies any questions at this time. Current Meds 1. Amitriptyline HCl - 50 MG Oral Tablet; TAKE 1 TABLET AT BEDTIME; Therapy: 59Ukv1210 to (Evaluate:28Hhh9405) Requested for: 28Qub1807; Last Rx:[id number]; Status: ACTIVE - Renewal Denied Ordered 2. Enpresse-28 Oral Tablet; Take 1 tablet daily as directed; Therapy: 30May2012 to (Evaluate:18Jun2014) Requested for: 52Zkm4750; Last Rx:[id number] Ordered 3. Gas Relief CAPS; Therapy: (Recorded:23Sep2013) to Recorded 4. Hydrochlorothiazide 25 MG Oral Tablet; TAKE ONE TABLET BY MOUTH EVERY DAY; Therapy: 20May2012 to (Evaluate:94Gbt4228) Requested for: 22Hbn0240; Last Rx:[id number] Ordered 5. Hydrocodone-Acetaminophen 5-325 MG Oral Tablet; TAKE 1 TO 2 TABLETS EVERY 4 TO 6 HOURS NEEDED FOR PAIN. NO MORE THAN 8 TABLETS PER DAY; Therapy: 25Sep2013 to (Evaluate:27Sep2013); Last Rx:25Sep2013 Ordered 6. LORazepam 0.5 MG Oral Tablet; Take 1 tablet twice a day; Therapy: 35Fae9704 to (Evaluate:09Jan2014) Requested for: 66Col0536; Last Rx:[id number] Ordered 7. MetFORMIN HCl - 500 MG Oral Tablet; Therapy: 24Dec2011 to Recorded 8. Multivitamins TABS; Therapy: (Recorded:23Sep2013) to Recorded 9. Pantoprazole Sodium 40 MG Oral Tablet Delayed Release; TAKE ONE TABLET BY MOUTH EVERY DAY; Therapy: 08Jun2012 to (Evaluate:90Yxn7453) Requested for: 16Jun2013; Last Rx:[id number] Ordered 10. Sulfamethoxazole-TMP DS 800-160 MG Oral Tablet; TAKE 1 TABLET TWICE DAILY UNTIL FINISHED; Therapy: 25Sep2013 to (Evaluate:02Oct2013) Requested for: 25Sep2013; Last Rx:25Sep2013 Ordered 11. TraZODone HCl - 50 MG Oral Tablet; Take 1-2 tablets at bedtime as needed for sleep; Therapy: 51Gbs4715 to (Last Rx:[id number]) Requested for: 46Ony6052 Ordered 12. Venlafaxine HCl ER 75 MG Oral Capsule Extended Release 24 Hour; Take 1 capsule in am and 2 capsule in evening; Therapy: 13May2012 to (Evaluate:13Aug2014) Requested for: 18Aug2013; Last Rx:18Aug2013 Ordered 13. Vitamin D3 1000 UNIT Oral Tablet; Therapy: (Recorded:23Sep2013) to Recorded 14. Zolpidem Tartrate ER 12.5 MG Oral Tablet Extended Release (Ambien CR); TAKE 1 TABLET AT BEDTIME NEEDED FOR SLEEP; Therapy: 92Yjs1437 to (Evaluate:31Dec2013); Last Rx:[id number] Ordered Signatures Electronically signed by : Royer Hidalgo M.D.; Dec 17 2013 3:53PM METAL RECLAMATION KETTLE TENDER (Author) documented in this encounter Plan of Treatment Upcoming Encounters Date Type Department Care Team (Late st Contact Info) Description 07/25/2024 10:00 AM METAL RECLAMATION KETTLE TENDER Office Visit [facility] Medical Group Family & Internal Medicine - [place] [address] [place] [address] Keyonna Armstrong APNP [address] [place] [address] 07/31/2024 10:15 AM METAL RECLAMATION KETTLE TENDER Office Visit [facility] [address] [facility], [facility] [address] [place], [place] [id number] Pepe Mitchell MD Three [facility]. [facility] [address] [place], [place] [id number] documented as of this encounter Visit Diagnoses Not on filedocumented in this encounter Care Teams Donor Relations Manager Relationship Specialty Start Date End Date Royer Hidalgo MD PCP - General 04/25/16 09/14/16 Royer Hidalgo MD PCP - General 05/14/15 04/24/16 Priyanka Zepeda MD PCP - General 04/22/13 05/13/15 documented as of this encounter
--- OUTSIDE RECORDS SUMMARY | 2024-07-10 23:02 | XMS_ITS | Encounter Summary ---
Author Organization [facility] Address [facility]. [place], [place] [address] [place] [address] Care Team Providers Care Scheduling Representative Name Role Phone Royer Hidalgo MD Primary Care Provider [phone] Royer Hidalgo MD Primary Care Provider [phone] Priyanka Zepeda MD Primary Care Provider Unavailab le Priyanka Zepeda MD Primary Care Provider Unavailab le Encounter Details Date Type Department Care Team (Latest Contact Info) Description 02/19/2013 Abstract [facility] Medical Group Social History Tobacco Use Types Packs/Day Years Used Date Smoking Tobacco: Never Assessed Comments Unknown Sex and Gender Information Value Date Recorded Sex Assigned at Not on file Legal Sex Female 5:47 PM CDT Gender Identity Female 07/17/2022 10:27 AM NETWORK INTELLIGENCE ANALYST Sexual Orientation Straight 07/17/2022 10 :27 AM NETWORK INTELLIGENCE ANALYST documented as of this encounter Progress Notes * Generic Conversion MD Marti - 02/19/2013 2:26 PM CDT Message Recorded as Task Date: 02/19/2013 11:15 AM, Created By: Tiffanie Zhou Task Name: Medical Complaint Callback Assigned To: [facility] [place] Regarding Patient: Veronica Evangelista, Status: Active Comment: Tiffanie Zhou - 19 Feb 2013 11:15 AM TASK CREATED Caller: Self; Medical Complaint; thinks zolpidem isn't working anymore. asking if you could try something else for only a week. cannot do lunesta Priyanka Zepeda - 19 Feb 2013 11:18 AM TASK REASSIGNED: Previously Assigned To Priyanka Zepedail 30 mg at Message: pt notfied Plan 1. Temazepam 30 MG Oral Capsule; TAKE ONE CAPSULE BY MOUTH AT BEDTIME NEEDED FOR SLEEP; Therapy: to (Evaluate:81Soz1662); Last Rx:[id number] Signatures Electronically signed by : Demetra Delcid, ; Feb 19 2013 2:27PM (Author) ORK INTELLIGENCE ANALYST documented in this encounter Plan of Treatment Upcoming Encounters Date Type Department Care Team (Late st Contact Info) Description 07/25/2024 10:00 AM NETWORK INTELLIGENCE ANALYST Office Visit [facility] Medical Group Family & Internal Medicine - [address] [address] Keyonna Armstrong APNP [address] [place] [address] 07/31/2024 10:15 AM NETWORK INTELLIGENCE ANALYST Office Visit [facility] THREE [facility], [facility] [address] [place] [address] Pepe Mitchell MD Three [facility]. [facility] [address] [place] [address] documented as of this encounter Visit Diagnoses Not on filedocumented in this encounter Care Teams Scheduling Representative Relationship Specialty Start Date End Date Royer Hidalgo MD PCP - General 04/25/16 09/14/16 Royer Hidalgo MD PCP - General 05/14/15 04/24/16 Priyanka Zepeda MD PCP - General 04/22/13 05/13/15 Priyanka Zepeda MD PCP - General 10/28/12 04/21/13 documented as of this encounter
--- OUTSIDE RECORDS SUMMARY | 2024-07-10 23:02 | XMS_ITS | Encounter Summary ---
Author Organization [facility] Address [address] [place] [address]. [place], [place] [address] [place] [address] Care Team Providers Care Parts Counterperson Name Role Phone Royer Hidalgo MD Primary Care Provider [phone] Royer Hidalgo MD Primary Care Provider [phone] Priyanka Zepeda MD Primary Care Provider Unavailab le Encounter Details Date Type Department Care Team (Late st Contact Info) Description 07/03/2014 Abstract [facility] Medical Group Family Medicine - [address] [address] Royer Hidalgo MD [address] [facility] [place] [address] Social History Tobacco Use Types Packs/Day Years Used Date Smoking Tobacco: Never Assessed Comments Unknown Sex and Gender Information Value Date Recorded Sex Assigned at Not on file Legal Sex Female 5:47 PM CDT Gender Identity Female 07/17/2022 10:27 AM BRIM STRETCHER Sexual Orientation Straight 07/17/2022 10 :27 AM BRIM STRETCHER documented as of this encounter Last Filed Vital Signs Vital Sign Reading Time Taken Comments Blood Pressure 174/99 07/03/2014 11:32 AM BRIM STRETCHER Pulse 97 07/03/2014 11:32 AM BRIM STRETCHER Temperature - - Respiratory Rate - - Oxygen Saturation - - Inhaled Oxygen Concentration - - Weight 129.2 kg (284 lb 14.4 oz) 2013 11:32 AM BRIM STRETCHER Height 167.6 cm (5' 6) 07/03/2014 11:3 2 AM BRIM STRETCHER Body Mass Index 45.98 07/03/2014 11:32 AM BRIM STRETCHER documented in this encounter Progress Notes * Royer Hidalgo MD - 07/03/2014 11:30 AM CST Reason For Visit Chronic Recheck Visit Chief Complaint Follow up, out of HTN meds x 2-3 weeks History of Present Illness This 43-year-old female is here for followup of chronic conditions as noted below: #1 Hypertension: The patient ran out of atenolol a few weeks ago. She is still taking hydrochlorothiazide once daily. She denies headache, dizziness, shortness of breath, and chest pain. She is a nonsmoker. She has recently started working out in she has lost some weight. #2 Type 2 diabetes: I reviewed the patient's recent lab work which revealed a hemoglobin A1c of 5.8. She is tolerating metformin well without side effects. She denies signs and symptoms of hypo-or hyperglycemia. No blurry vision. No numbness in feet or hands. #3 Chronic Insomnia: The patient has a very long history of insomnia. It has seemed to worsen over the past several months. She has been on multiple medications in the past including Ambien, Ambien CR, Sonata, Restoril, and amitriptyline. She is currently taking amitriptyline, but it does not seem to be helping much. Her depression and anxiety have been under pretty good control recently since she has started working out and losing weight. #4 Constipation: The patient reports a long history of constipation that seems to be getting worse over the past several months. She has been taking bisacodyl [id number]-ktuqbtf as needed. She has not had any abdominal pain, blood in the stool, or intermittent diarrhea. No nausea vomiting. REVIEW OF SYSTEMS Constitutional: Negative. Eyes: Negative. ENT: Negative. Cardiovascular: Negative. Respiratory: Negative. Gastrointestinal: See history of present illness. Genitourinary: Negative. Musculoskeletal: Negative. Integumentary: Negative. Psychiatric: See history of present illness. Hematologic and Lymphatic: Negative. PHYSICAL EXAM GEN: NAD, well-appearing and [...] (E13.42,G62.9) 5. Esophageal reflux (530.81) (K21.9) 6. History of motion sickness (V13.89) (Z87.898) 7. Hypertension (401.9) (I10) 8. Insomnia (780.52) (G47.00) 9. Morbid obesity (278.01) (E66.01) 10. Obstructive sleep apnea (327.23) (G47.33) 11. Paronychia of finger (681.02) (L03.019) 12. Type 2 diabetes mellitus (250.00) (E11.9) [...] Tablet; TAKE 1 TABLET AT BEDTIME; Therapy: 48Xen0246 to (Evaluate:22Aug2014) Requested for: 81Csu1115; Last Rx:[id number] Ordered 2. Atenolol 50 MG Oral Tablet; TAKE 1 TABLET BY MOUTH TWICE A DAY NEEDED; Therapy: 42Vey3940 to (Evaluate:29Dec2014) Requested for: 48Jmj1750; Last Rx:13Gix0341 Ordered 3. Enpresse-28 Oral Tablet; Take 1 tablet daily as directed; Therapy: 30May2012 to (Evaluate:28Dec2014) Requested for: 15Jun2014; Last Rx:15Jun2014 Ordered 4. Hydrochlorothiazide 25 MG Oral Tablet; TAKE ONE TABLET BY MOUTH EVERY DAY; Therapy: 20May2012 to (Evaluate:17Aug2014) Requested for: 18Zrf1063; Last Rx:[id number] Ordered 5. LORazepam 0.5 MG Oral Tablet; Take 1 tablet twice a day; Therapy: 51Mvi0213 to (Evaluate:38Vqv6369) Requested for: 15Jun2014; Last Rx:[id number] Ordered 6. MetFORMIN HCl - 500 MG Oral Tablet; TAKE 1 TABLET EVERY MORNING AND THEN TAKE 2 TABLETS AT BEDTIME; Therapy: 24Dec2011 to (Evaluate:14Jun2014) Requested for: 33Sul9257; Last Rx:[id number] Ordered 7. Multivitamins TABS; Therapy: (Recorded:23Sep2013) to Recorded 8. Pantoprazole Sodium 40 MG Oral Tablet Delayed Release; TAKE ONE TABLET BY MOUTH EVERY DAY; Therapy: 08Jun2012 to (Evaluate:17Qkr1260) Requested for: 25Uqx0562; Last Rx:[id number] Ordered 9. Venlafaxine HCl ER 75 MG Oral Capsule Extended Release 24 Hour; Take 1 capsule in am and 2 capsule in evening; Therapy: 13May2012 to (Evaluate:13Aug2014) Requested for: 18Aug2013; Last Rx:[id number] Ordered 10. Vitamin D3 1000 UNIT Oral Tablet; Therapy: (Recorded:23Sep2013) to Recorded 11. Zolpidem Tartrate ER 12.5 MG Oral Tablet Extended Release (Ambien CR); TAKE ONE TABLET BY MOUTH AT BEDTIME NEEDED FOR SLEEP; Therapy: 01Dec2013 to (Evaluate:29Jul2014) Requested for: 77Qmv1785; Last Rx:[id number] Ordered Allergies 1. No Known Drug Allergies Immunizations Influenza --- Series1: 19Jun2012 Vitals Recorded by : Marcella Gant at 56Jaf8976 11:32AM Heart Rate 97 Respiration 16 Systolic 174 Diastolic 99 Height 5 ft 6 in Weight 284 lb 14.4 oz BMI Calculated 45.98 BSA Calculated 2.32 Assessment 1. Insomnia (780.52) (G47.00) 2. Constipation (564.00) (K59.00) 3. Hypertension (401.9) (I10) 4. Type 2 diabetes mellitus (250.00) (E11.9) Plan Constipation 1. Start: Polyethylene Glycol 3350 Oral Powder; MIX 1 CAPFUL (17GM) IN 8 OUNCES OF WATER, JUICE, OR TEA AND DRINK DAILY Rx By: Royer Hidalgo; Dispense: 90 Days ; #:3 X 527 GM Bottle; Refill: 3; For: Constipation; TEX = N; Verified Transmission to [facility] #2510; Last Updated By: [facility]; 07/03/2014 12:05:53 PM Hypertension 2. Renew: Atenolol 50 MG Oral Tablet; TAKE 1 TABLET BY MOUTH TWICE A DAY NEEDED Rx By: Royer Hidalgo; Dispense: 90 Days ; #:180 Tablet; Refill: 1; For: Hypertension; TEX = N; Verified Transmission to [facility] #2510; Last Updated By: [facility]; 07/03/2014 12:05:54 PM 3. Renew: Hydrochlorothiazide 25 MG Oral Tablet; TAKE ONE TABLET BY MOUTH EVERY DAY Rx By: Royer Hidalgo; Dispense: 90 Days ; #:90 Tablet; Refill: 1; For: Hypertension; TEX = N; VerifiedTransmission to [facility]; Last Updated By: [facility]; 07/03/2014 12:05:53 PM Insomnia 4. Stop: Amitriptyline HCl - 25 MG Oral Tablet Rx By: Royer Hidalgo; Dispense: 30 Days ; #:30 Tablet; Refill: 5; For: Insomnia; TEX = N; Sent To: [facility] #2510 5. Start: Nortriptyline HCl - 25 MG Oral Capsule; TAKE 1 TO 3 CAPSULES AT BEDTIME NEEDED Rx By: Royer Hidalgo; Dispense: 20 Days ; #:60 Capsule; Refill: 5; For: Insomnia; TEX = N; Verified Transmission to [facility] #2510; Last Updated By: [facility]; 07/03/2014 12:05:54 PM Discussion/Summary #1 Diabetes: Continue metformin. Well-controlled including lipids. Since the patient's diabetes seems to be very minimal ( possibly IGT), I will not start her on statin therapy right now. #2 Hypertension: Restart atenolol. Continue hydrochlorothiazide. Recheck blood pressure in clinic in 3 months. #3 Chronic insomnia: Continue Ambien. Trial of nortriptyline 25-75 mg as needed which should also help her peripheral neuropathy. #4 Constipation: No red flag symptoms. This may have been triggered by the amitriptyline. Increase water and fiber. MiraLax, MOM, and/or bisacodyl as needed. Consider colonoscopy if worsening or not improving. Followup in 3 months, sooner if needed. Signatures Electronically signed by : Royer Hidalgo M.D.; Jul 03 2014 1:51PM BRIM STRETCHER (Author) documented in this encounter Plan of Treatment Upcoming Encounters Date Type Department Care Team (Late st Contact Info) Description 07/25/2024 10:00 AM BRIM STRETCHER Office Visit [facility] Medical Group Family & Internal Medicine [address] [address] Keyonna Armstrong APNP [address] [place] [address] 07/31/2024 10:15 AM BRIM STRETCHER Office Visit [facility] THREE [facility], [facility] [address] [place], [place] [address] Pepe Mitchell MD [facility]. [facility] [address] [place], [place] [address] documented as of this encounter Visit Diagnoses Not on filedocumented in this encounter Care Teams Parts Counterperson Relationship Specialty Start Date End Date Royer Hidalgo MD PCP - General 04/25/16 09/14/16 Royer Hidalgo MD PCP - General 05/14/15 04/24/16 Priyanka Zepeda MD PCP - General 04/22/13 05/13/15 documented as of this encounter
--- OUTSIDE RECORDS SUMMARY | 2024-07-10 23:02 | XMS_ITS | Encounter Summary ---
Author Organization [facility] Address Formerly [facility], [facility]. [place], [place] [address] [place] [address] Care Team Providers Care Automotive Parts Specialist Name Role Phone Royer Hidalgo MD Primary Care Provider [phone] Royer Hidalgo MD Primary Care Provider [phone] Priyanka Zepeda MD Primary Care Provider Unavailab le Encounter Details Date Type Department Care Team (Latest Contact Info) Description 02/23/2014 Abstract [facility] Medical [facility] Social History Tobacco Use Types Packs/Day Years Used Date Smoking Tobacco: Never Assessed Comments Unknown Sex and Gender Information Value Date Recorded Sex Assigned at Not on file Legal Sex Female 5:47 PM CDT Gender Identity Female 07/17/2022 10:27 AM SUPERVISORY CBP OFFICER Sexual Orientation Straight 07/17/2022 10 :27 AM SUPERVISORY CBP OFFICER documented as of this encounter Progress Notes * Generic Conversion MD Marti - 02/23/2014 9:17 AM CDT Message Recorded as Task Date: 02/13/2014 02:27 PM, Created By: Vicki Mcgill Task Name: Miscellaneous Assigned To: [facility]- Nursing Team Regarding Patient: Veronica Evangelista, Status: Active Comment: Vicki Mcgill - 13 Feb 2014 2:27 PM TASK CREATED Caller: Self; Other; Patch for flight is too expensive and pt wants something else called in. If nothing else is available can she purchase 1-2 patches only?? Discussed a RX that goes along with Ambien and she said it did not get called into Pharmacy. [facility] [place] Royer Hidalgo - 13 Feb 2014 2:58 PM TASK EDITED Patient could try meclizine 25mg every 8 hours as needed or phenergan 25mg every 8 hours as needed (#10 Ref 0). These will be cheap, but can make you drowsy. Don't remember discussing a med to go with Ambien. Patient has had trazodone and amitriptyline before. She could also try melatonin 5mg 1 hour before bed. Marcella Gant - 13 Feb 2014 3:02 PM TASK EDITED Attempted to call pt, no answering machine available. Brandie Bronson - 16 Feb 2014 9:18 AM TASK EDITED Called in phenergan per request. Patient also said you talked about giving her Amitriptyline with the Ambien. I told her you were gone until next week, but we would check with you then. RockyRoyer - 23 Feb 2014 5:18 AM TASK EDITED Please call in amitriptyline 25mg 1 tab each night (#30 Ref 5). Thanks! Brandie Bronson - 23 Feb 2014 9:20 AM TASK EDITED LMOM regarding refilling the Amitriptyline at [facility] in [place], and she could go pick it up. Patient never picked up medicine from [facility], and I did verify this with them. Plan 1. Renew: Amitriptyline HCl - 25 MG Oral Tablet; TAKE 1 TABLET AT BEDTIME Signatures Electronically signed by : Brandie Bronson R.N.; Feb 23 2014 9:20AM SUPERVISORY CBP OFFICER (Author) documented in this encounter Plan of Treatment Upcoming Encounters Date Type Department Care Team (Late st Contact Info) Description 07/25/2024 10:00 AM SUPERVISORY CBP OFFICER Office Visit [facility] Medical Group Family & Internal Medicine - [place] [address] [place] [address] Keyonna Armstrong APNP [address] [place] [address] 07/31/2024 10:15 AM SUPERVISORY CBP OFFICER Office Visit [facility], [address] [address] Pepe Mitchell MD [address] [place] [address] documented as of this encounter Visit Diagnoses Not on filedocumented in this encounter Care Teams Automotive Parts Specialist Relationship Specialty Start Date End Date Royer Hidalgo MD PCP - General 04/25/16 09/14/16 Royer Hidalgo MD PCP - General 05/14/15 04/24/16 Priyanka Zepeda MD PCP - General 04/22/13 05/13/15 documented as of this encounter
--- OUTSIDE RECORDS SUMMARY | 2024-07-10 23:02 | XMS_ITS | Encounter Summary ---
Author Organization [facility] Address [address] [place] [address]. [place], [place] [address] [place] [address] Care Team Providers Care Scorer Helper Name Role Phone Royer Hidalgo MD Primary Care Provider [phone] Royer Hidalgo MD Primary Care Provider [phone] Encounter Details Date Type Department Care Team (Late st Contact Info) Description 05/14/[address] [facility] [address] Royer Hidalgo MD [address] [facility] [place] [address] Social History Tobacco Use Types Packs/Day Years Used Date Smoking Tobacco: Never Assessed Comments Unknown Sex and Gender Information Value Date Recorded Sex Assigned at Not on file Legal Sex Female 5:47 PM CDT Gender Identity Female 07/17/2022 10:27 AM FIRE INFORMATION OFFICER Sexual Orientation Straight 07/17/2022 10 :27 AM FIRE INFORMATION OFFICER documented as of this encounter Plan of Treatment Upcoming Encounters Date Type Department Care Team (Late st Contact Info) Description 07/25/2024 10:00 AM FIRE INFORMATION OFFICER Office Visit [facility] Medical Group Family & Internal Medicine - [address] [address] Keyonna Armstrong APNP [address] [place] [address] 07/31/2024 10:15 AM FIRE INFORMATION OFFICER Office Visit [facility] [place] [address] [place] [address] Pepe Mitchell MD Three [facility]. [place] [address] [place] [address] documented as of this encounter Visit Diagnoses Diagnosis Nausea Nausea alone documented in this encounter Care Teams Scorer Helper Relationship Specialty Start Date End Date Royer Hidalgo MD PCP - General 04/25/16 09/14/16 Royer Hidalgo MD PCP - General 05/14/15 04/24/16 documented as of this encounter
--- OUTSIDE RECORDS SUMMARY | 2024-07-10 23:02 | XMS_ITS | Encounter Summary ---
Author Organization [facility] Address [address] [place] [address]. [place], [place] [address] [place] [address] Care Team Providers Care Group Tester Name Role Phone Royer Hidalgo MD Primary Care Provider [phone] Royer Hidalgo MD Primary Care Provider [phone] Priyanka Zepeda MD Primary Care Provider Unavailab le Encounter Details Date Type Department Care Team (Latest Contact Info) Description 08/18/2014 Abstract [facility] Medical Group Royer Hidalgo MD [address] [facility] [place] [phone] Social History Tobacco Use Types Packs/Day Years Used Date Smoking Tobacco: Never Assessed Comments Unknown Sex and Gender Information Value Date Recorded Sex Assigned at Not on file Legal Sex Female 5:47 PM CDT Gender Identity Female 07/17/2022 10:27 AM ORIENTAL RUG STRETCHER Sexual Orientation Straight 07/17/2022 10 :27 AM ORIENTAL RUG STRETCHER documented as of this encounter Progress Notes * Royer Hidalgo MD - 08/18/2014 2:25 PM CST Message Recorded as Task Date: 08/18/2014 02:27 PM, Created By: Anupama Maddox Task Name: Renew Medication Assigned To: Anupama Maddox Regarding Patient: Veronica Evangelista, Status: Active Comment: Anupama Maddox - 18 Aug 2014 2:27 PM TASK CREATED [facility] wanting to get [facility] to fill pt's Rozerem today. She has had Ambien CR, Sonata, and Amitriptyline filled in the last [address] Hidalgo, as long as we can contact pt and verify that she is not taking any of these, then we can give her a 2 week supply. I called and let [facility] know this, she then informed me that her insurance will not cover this or Lunesta. Her only options at this point is Ambien or Sonata. Pt informed of this and will just stick with the Ambien then. Signatures Electronically signed by : Royer Hidalgo M.D.; Aug 18 2014 5:42PM ORIENTAL RUG STRETCHER (Author) * Royer Hidalgo MD - 08/18/2014 12:13 PM CST Message Recorded as Task Date: 08/17/2014 03:17 PM, Created By: Ne Mueller Task Name: Call Back Assigned To: Marcella Gant Regarding Patient: Veronica Evangelista, Status: Active Comment: Ne Mueller - 17 Aug 2014 3:17 PM TASK CREATED Caller: Self; was told to call back if new meds were not working she try zaleplon and its not working for her [phone] would like to try something different Marcella Gant - 17 Aug 2014 3:32 PM TASK REASSIGNED: Previously Assigned To [facility]- Nursing Team Royer Hidalgo - 17 Aug 2014 5:07 PM TASK EDITED Sleep med options: Ambien CR, Lunesta, Rozerem, Trazodone, amitriptyline, notriptyline. I think she's taken all of these. Marcella Gant - 18 Aug 2014 9:47 AM TASK EDITED Left message for pt to call back Marcella Gant - 18 Aug 2014 10:04 AM TASK EDITED Pt states she has not taken Rozerem in the past, would like to try that med. Pharm: JACOB Tiffanie RockyRoyer - 18 Aug 2014 11:34 AM TASK EDITED Ordered. Current Meds 1. Amitriptyline HCl - 25 MG Oral Tablet; TAKE 1 TO 2 TABLETS BY MOUTH EVERY EVENING AT BEDTIME; Therapy: 74Lsu1374 to (Evaluate:16Nov2014) Requested for: 18Aug2014; Last Rx:18Aug2014 Ordered 2. Atenolol 50 MG Oral Tablet; TAKE 1 TABLET BY MOUTH TWICE A DAY NEEDED; Therapy: 39Nrm0068 to (Evaluate:30Dec2014) Requested for: 54Tvz9728; Last Rx:25Ruf2931 Ordered 3. Enpresse-28 Oral Tablet; Take 1 tablet daily as directed; Therapy: 30May2012 to (Evaluate:28Dec2014) Requested for: 15Jun2014; Last Rx:15Jun2014 Ordered 4. Hydrochlorothiazide 25 MG Oral Tablet; TAKE ONE TABLET BY MOUTH EVERY DAY; Therapy: 20May2012 to (Evaluate:30Dec2014) Requested for: 19Lzs9131; Last Rx:41Tuw0827 Ordered 5. Ibuprofen 800 MG Oral Tablet; TAKE 1 TABLET 3 TIMES DAILY WITH FOOD NEEDED for pain; Therapy: 11Aug2014 to (Evaluate:10Oct2014) Requested for: 11Aug2014; Last Rx:11Aug2014 Ordered 6. LORazepam 0.5 MG Oral Tablet; TAKE 1 TABLET BY MOUTH TWICE A DAY NEEDED; Therapy: 20Aoi1610 to (Evaluate:60Smp4668) Requested for: 13Aug2014; Last Rx:13Aug2014 Ordered 7. MetFORMIN HCl - 500 MG Oral Tablet; TAKE 1 TABLET EVERY MORNING AND THEN TAKE 2 TABLETS AT BEDTIME; Therapy: 24Dec2011 to (Evaluate:13Jno4127) Requested for: 29Jul2014; Last Rx:29Jul2014 Ordered 8. Methocarbamol 750 MG Oral Tablet; TAKE 1 TO 2 TABLETS 3 TIMES DAILY NEEDED FOR MUSCLE SPASM; Therapy: 11Aug2014 to (Evaluate:21Aug2014) Requested for: 11Aug2014; Last Rx:11Aug2014 Ordered 9. Multivitamins TABS; Therapy: (Recorded:23Sep2013) to Recorded 10. Pantoprazole Sodium 40 MG Oral Tablet Delayed Release; TAKE ONE TABLET BY MOUTH EVERY DAY; Therapy: 08Jun2012 to (Evaluate:38Pdk8481) Requested for: 41Sng9339; Last Rx:20Rju4797 Ordered 11. Polyethylene Glycol 3350 Oral Powder; MIX 1 CAPFUL (17GM) IN 8 OUNCES OF WATER, JUICE, OR TEA AND DRINK DAILY; Therapy: 20Bye3559 to (Evaluate:64Iyk5859) Requested for: 75Txj4783; Last Rx:44Vkl9978 Ordered 12. Rozerem 8 MG Oral Tablet; TAKE 1/2 TO 1 TABLET AT BEDTIME NEEDED; Therapy: 18Aug2014 to (Evaluate:43Obg2934) Requested for: 18Aug2014; Last Rx:18Aug2014 Ordered 13. Venlafaxine HCl ER 75 MG Oral Capsule Extended Release 24 Hour; Take 1 capsule in am and 2 capsule in evening; Therapy: 13May2012 to (Evaluate:50Pbk3787) Requested for: 05Aug2014; Last Rx:05Aug2014 Ordered 14. Vitamin D3 1000 UNIT Oral Tablet; Therapy: (Recorded:23Sep2013) to Recorded 15. Zaleplon 5 MG Oral Capsule; TAKE 1-2 CAPSULES AT BEDTIME NEEDED; Therapy: 11Aug2014 to (Evaluate:10Oct2014); Last Rx:11Aug2014 Ordered Signatures Electronically signed by : Royer Hidalgo M.D.; Aug 18 2014 12:21PM ORIENTAL RUG STRETCHER (Author) documented in this encounter Plan of Treatment Upcoming Encounters Date Type Department Care Team (Late st Contact Info) Description 07/25/2024 10:00 AM ORIENTAL RUG STRETCHER Office Visit [facility] Medical Group Family & Internal Medicine [facility] [address] [place] [address] Keyonna Armstrong APNP [address] [place] [address] 07/31/2024 10:15 AM ORIENTAL RUG STRETCHER Office Visit [facility], [facility] [address] [place], [place] [phone] Pepe Mitchell MD Three [facility]. [facility] [address] [place] [address] documented as of this encounter Visit Diagnoses Not on filedocumented in this encounter Care Teams Group Tester Relationship Specialty Start Date End Date Royer Hidalgo MD PCP - General 04/25/16 09/14/16 Royer Hidalgo MD PCP - General 05/14/15 04/24/16 Priyanka Zepeda MD PCP - General 04/22/13 05/13/15 documented as of this encounter
--- OUTSIDE RECORDS SUMMARY | 2024-07-10 23:02 | XMS_ITS | Encounter Summary ---
Author Organization [facility] Address [facility]. [place], [place] [address] [place] [address] Care Team Providers Care Sales Analyst Name Role Phone Royer Hidalgo MD Primary Care Provider [phone] Royer Hidalgo MD Primary Care Provider [phone] Priyanka Zepeda MD Primary Care Provider Unavailab le Encounter Details Date Type Department Care Team (Latest Contact Info) Description 12/10/2013 Abstract [facility] Medical Group , Claudia Gaines MD Social History Tobacco Use Types Packs/Day Years Used Date Smoking Tobacco: Never Assessed Comments Unknown Sex and Gender Information Value Date Recorded Sex Assigned at Not on file Legal Sex Female 5:47 PM CDT Gender Identity Female 07/17/2022 10:27 AM ACCOUNTING INTERN Sexual Orientation Straight 07/17/2022 10 :27 AM ACCOUNTING INTERN documented as of this encounter Progress Notes * Royer Hidalgo MD - 12/10/2013 4:04 PM CDT Message Recorded as Task Date: 12/09/2013 03:19 PM, Created By: System Task Name: Rx Renew Request Assigned To: [facility]- Nursing Team Regarding Patient: Kiera Evangelista, Status: Active Comment: System - 09 Dec 2013 3:19 PM PHARMACY: [email or web address] [email or web address] PATIENT: KIERA EVANGELISTA MEDICATION: LORAZEPAM 0.5 MG TABLET Royer Hidalgo - 10 Dec 2013 8:45 AM TASK EDITED Okay to fill, but please let patient know that I'm not comfortable with her taking this forever. She should try to use as needed, starting with once daily and a second dose only as needed. She can expect to have some increased anxiety, but this is because her body has developed tolerance to the medication. Marcella Gant - 10 Dec 2013 10:27 AM TASK EDITED Left message for pt to call back. Marcella Gant - 10 Dec 2013 3:29 PM TASK REASSIGNED: Previously Assigned To Marcella Gant Melissa - 10 Dec 2013 4:05 PM TASK EDITED Pt notified of above. Refill called to [facility] in [place] per pt request, pt aware Current Meds 1. Amitriptyline HCl - 50 MG Oral Tablet; TAKE 1 TABLET AT BEDTIME; Therapy: 29Vgd3676 to (Evaluate:82Acr4970) Requested for: 27Ouv9349; Last Rx:57Ljr7155; Status: ACTIVE - Renewal Denied Ordered 2. Enpresse-28 Oral Tablet; Take 1 tablet daily as directed; Therapy: 30May2012 to (Evaluate:18Jun2014) Requested for: 81Ysr8635; Last Rx:[id number] Ordered 3. Gas Relief CAPS; Therapy: (Recorded:23Sep2013) to Recorded 4. Hydrochlorothiazide 25 MG Oral Tablet; TAKE ONE TABLET BY MOUTH EVERY DAY; Therapy: 20May2012 to (Evaluate:62Qbk1802) Requested for: 38Kel2190; Last Rx:91Rps3310 Ordered 5. Hydrocodone-Acetaminophen 5-325 MG Oral Tablet; TAKE 1 TO 2 TABLETS EVERY 4 TO 6 HOURS NEEDED FOR PAIN. NO MORE THAN 8 TABLETS PER DAY; Therapy: 25Sep2013 to (Evaluate:27Sep2013); Last Rx:25Sep2013 Ordered 6. LORazepam 0.5 MG Oral Tablet; Take 1 tablet twice a day; Therapy: 37Psj1148 to (Evaluate:75Yqs4170) Requested for: 13Drg4174; Last Rx:74Ypx8874 Ordered 7. MetFORMIN HCl - 500 MG Oral Tablet; Therapy: 24Dec2011 to Recorded 8. Multivitamins TABS; Therapy: (Recorded:23Sep2013) to Recorded 9. Pantoprazole Sodium 40 MG Oral Tablet Delayed Release; TAKE ONE TABLET BY MOUTH EVERY DAY; Therapy: 08Jun2012 to (Evaluate:92Skf7017) Requested for: 16Jun2013; Last Rx:16Jun2013 Ordered 10. Sulfamethoxazole-TMP DS 800-160 MG Oral Tablet; TAKE 1 TABLET TWICE DAILY UNTIL FINISHED; Therapy: 25Sep2013 to (Evaluate:02Oct2013) Requested for: 25Sep2013; Last Rx:25Sep2013 Ordered 11. TraZODone HCl - 50 MG Oral Tablet; Take 1-2 tablets at bedtime as needed for sleep; Therapy: 28Nov2013 to (Last Rx:28Nov2013) Requested for: 28Nov2013 Ordered 12. Venlafaxine HCl ER 75 MG [...] TABLET AT BEDTIME NEEDED FOR SLEEP; Therapy: 01Dec2013 to (Evaluate:31Dec2013); Last Rx:01Dec2013 Ordered Plan 1. Renew: LORazepam 0.5 MG Oral Tablet; Take 1 tablet twice a day Signatures Electronically signed by : Royer Hidalgo M.D.; Dec 16 2013 7:41AM ACCOUNTING INTERN (Author) Electronically signed by : Royer Hidalgo M.D.; Dec 16 2013 7:41AM ACCOUNTING INTERN (Author) documented in this encounter Plan of Treatment Upcoming Encounters Date Type Department Care Team (Late st Contact Info) Description 07/25/2024 10:00 AM ACCOUNTING INTERN Office Visit [facility] Medical Group Family & Internal Medicine - [place] [address] [place] [address] Keyonna Armstrong APNP [address] [place] [address] 07/31/2024 10:15 AM ACCOUNTING INTERN Office Visit [facility], [address] [address] Pepe Mitchell MD [address] [place] [address] documented as of this encounter Visit Diagnoses Not on filedocumented in this encounter Care Teams Sales Analyst Relationship Specialty Start Date End Date Royer Hidalgo MD PCP - General 04/25/16 09/14/16 Royer Hidalgo MD PCP - General 05/14/15 04/24/16 Priyanka Zepeda MD PCP - General 04/22/13 05/13/15 documented as of this encounter
--- OUTSIDE RECORDS SUMMARY | 2024-07-10 23:02 | XMS_ITS | Encounter Summary ---
Author Organization [facility] Address [facility]6 [facility]. [place], [place] [address] [place] [address] Care Team Providers Care Tyre Retreader Name Role Phone Royer Hidalgo MD Primary Care Provider [phone] Royer Hidalgo MD Primary Care Provider [phone] Priyanka Zepeda MD Primary Care Provider Unavailab Priyanka Cruz MD Primary Care Provider Unavailab lew Encounter Details Date Type Department Care Team (Latest Contact Info) Description 02/25/2013 Abstract [facility] Medical Group Social History Tobacco Use Types Packs/Day Years Used Date Smoking Tobacco: Never Assessed Comments Unknown Sex and Gender Information Value Date Recorded Sex Assigned at Not on file Legal Sex Female 5:47 PM CDT Gender Identity Female 07/17/2022 10:27 AM ASSOCIATE APPLICATION DEVELOPER Sexual Orientation Straight 07/17/2022 10 :27 AM ASSOCIATE APPLICATION DEVELOPER documented as of this encounter Progress Notes * Generic Conversion MD Marti - 02/25/2013 1:46 PM CDT Message Recorded as Task Date: 02/25/2013 10:16 AM, Created By: Joanne Urbina Task Name: Medical Complaint Callback Assigned To: [facility] Katelyn Regarding Patient: Veronica Evangelista, Status: Active Comment: Joanne Urbina - 25 Feb 2013 10:16 AM TASK CREATED Caller: Self; Medical Complaint; Pt c/o Temazepam trial of over a week and its not really helping her. She thinks the Zolpidem actually worked better for her but must of grown tolerant of it. Is there something else she could try orgo back to Zolpidem? Priyanka Zepeda - 25 Feb 2013 11:00 AM TASK REASSIGNED: Previously Assigned To Priyanka Zepeda we could try elavil 25mg at to see if that works. Message: pt notified. Plan 1. Amitriptyline HCl 25 MG Oral Tablet; TAKE ONE TABLET BY MOUTH DAILY AT BEDTIME; Therapy: to (Evaluate:27Mar2013); Last Rx:25Feb2013 2. Temazepam 30 MG Oral Capsule; TAKE 1 CAPSULE AT BEDTIME NEEDED FOR SLEEP; Therapy: 19Jun2012 to 25Feb2013; Last Rx:19Jun2012; Status: DISCONTINUED - Replaced Signatures Electronically signed by : Demetra Delcid, ; Feb 25 2013 1:48PM (Author) CIATE APPLICATION DEVELOPER documented in this encounter Plan of Treatment Upcoming Encounters Date Type Department Care Team (Late st Contact Info) Description 07/25/2024 10:00 AM ASSOCIATE APPLICATION DEVELOPER Office Visit [facility] Medical Group Family & Internal Medicine [address] [place] [address] Keyonna Armstrong APNP [facility] [place] [address] 07/31/2024 10:15 AM ASSOCIATE APPLICATION DEVELOPER [facility] [address] [place] [address] Pepe Mitchell MD [facility] [address] [place] [address] documented as of this encounter Visit Diagnoses Not on filedocumented in this encounter Care Teams Tyre Retreader Relationship Specialty Start Date End Date Royer Hidalgo MD PCP - General 04/25/16 09/14/16 Royer Hidalgo MD PCP - General 05/14/15 04/24/16 Priyanka Zepeda MD PCP - General 04/22/13 05/13/15 Priyanka Zepeda MD PCP - General 10/28/12 04/21/13 documented as of this encounter
--- OUTSIDE RECORDS SUMMARY | 2024-07-10 23:02 | XMS_ITS | Encounter Summary ---
Author Organization [facility] Address [address] [place] [address]. [place], [place] [address] [place] [address] Care Team Providers Care Sap Administrator Name Role Phone Royer Hidalgo MD Primary Care Provider [phone] Royer Hidalgo MD Primary Care Provider [phone] Priyanka Zepeda MD Primary Care Provider Unavailab le Encounter Details Date Type Department Care Team (Latest Contact Info) Description 04/23/2013 Abstract [facility] Social History Tobacco Use Types Packs/Day Years Used Date Smoking Tobacco: Never Assessed Comments Unknown Sex and Gender Information Value Date Recorded Sex Assigned at Not on file Legal Sex Female 5:47 PM CDT Gender Identity Female 07/17/2022 10:27 AM METAL HANGING SUPERVISOR Sexual Orientation Straight 07/17/2022 10 :27 AM METAL HANGING SUPERVISOR documented as of this encounter Progress Notes * Priyanka Zepeda MD - 04/23/2013 12:20 PM CDT Message Labs are perfect and she should stay on the same dose of medications. recheck A1C in 6 months. pt notified. new order for repeat HA1c entered for 6 months. Verified Results CBC W Differential 22Apr2013 10:51AM Priyanka Zepeda Test Name Result Flag Reference White Blood Cell Count (WBC) 12.2 X10'3/uL H 4.8-10.8 Red Blood Cell Count (RBC) 4.65 X10'6/uL 4.20-5.40 Hemoglobin (HGB) 14.5 g/dL 12.0-16.0 Hematocrit (HCT) 44.3 % 37.0-47.0 Mean Corpuscular Volume (MCV) 95.3 fL 81.0-99.0 Mean Corpuscular Hgb (MCH) 31.1 pg H 27.0-31.0 Mean Corpuscular Hgb Conc (MCH 32.7 g/dL 32.0-36.0 Red Cell Distrib Width (RDW) 14.5 % 11.5-14.5 Platelet Count (PLT) 327 X10'3/uL 130-400 Mean Platelet Volume (MPV) 8.7 fL 7.0-10.4 Basophils % (Auto) 0.2 % 0.0-1.0 Eosinophils % (Auto) 2.7 % 1.0-3.0 Neutrophils % (Auto) 60.3 % 43.0-65.0 Lymphocytes % (Auto) 29.1 % 20.0-46.0 Monocytes % (Auto) 7.7 % 5.0-12.0 RBC Morphology 1+Anisocytosis Differential Type AUTOMATED Compr Metabolic Prof ( CMP ) 22Apr2013 10:51AM Priyanka Zepeda Test Name Result Flag Reference Sodium (Na) 137 mmol/L 136-145 Potassium (K) 4.4 mmol/L 3.5-5.1 Chloride (Cl) 98 mmol/L 98-107 CREATININE 0.65 mg/dL 0.60-1.10 Carbon Dioxide (CO2) 28 mmol/L 22-29 Blood Urea Nitrogen (BUN) 15 mg/dL 8-23 Glomerular Filt Rate Calc >60 mL/min/1.73m'2 >60 >60 NOTE: eGFR is not calculated for patients <18 years of age. This is an estimated GFR (CKD EPI) and should not be used for calculating drug doses. mL/min/1.73m'2 Anion Gap 15 8-20 Glucose 87 mg/dL 70-99 Calcium 9.8 mg/dL 8.6-10.2 Total Bilirubin 0.2 mg/dL 0.2-1.2 AST/GOT 26 IU/L 0-32 ALT/GPT 26 IU/L 0-33 Alkaline Phosphatase (ALKP) 76 IU/L 35-104 Total Protein 7.0 g/dL 6.4-8.3 ALBUMIN 4.1 g/dL 3.5-5.2 Globulin, Calc 2.9 g/dL 2.3-3.6 A:G Ratio 1.4 1.0-2.0 Hemoglobin A1C 22Apr2013 10:51AM Priyanka Zepeda Test Name Result Flag Reference Hemoglobin A1c 5.6 % 4.8-5.6 ADA GUIDELINES 2010 5.7 TO 6.4% INCREASED RISK OF DIABETES > OR = 6.5% CONSISTENT WITH DIABETES Estimated Average Glucose 114 mg/dL Urine Microalb / Creat Ratio 22Apr2013 10:05AM Priyanka Zepeda Test Name Result Flag Reference Urine Creatinine 65 mg/dL 28-217 Urine Microalbumin 0.3 mg/dL <2.0 Urine Microalbumin/Creat Ratio 4.6 mcg/mg creat <30 Signatures Electronically signed by : Demetra Delcid, ; Apr 24 2013 11:09AM (Author) L HANGING SUPERVISOR documented in this encounter Plan of Treatment Upcoming Encounters Date Type Department Care Team (Late st Contact Info) Description 07/25/2024 10:00 AM METAL HANGING SUPERVISOR Office Visit [facility] Family & Internal Medicine - [address] [address] Keyonna Armstrong APNP [address] [place] [address] 07/31/2024 10:15 AM METAL HANGING SUPERVISOR Office Visit [facility] [address] [place], [place] [phone] Pepe Mitchell MD [facility]. [facility] [address] [place] [address] documented as of this encounter Visit Diagnoses Not on filedocumented in this encounter Care Teams Sap Administrator Relationship Specialty Start Date End Date Royer Hidalgo MD PCP - General 04/25/16 09/14/16 Royer Hidalgo MD PCP - General 05/14/15 04/24/16 Priyanka Zepeda MD PCP - General 04/22/13 05/13/15 documented as of this encounter
--- OUTSIDE RECORDS SUMMARY | 2024-07-10 23:02 | XMS_ITS | Encounter Summary ---
Author Organization [facility] Address [facility]6 [facility]. [place], [place] [address] [place] [address] Care Team Providers Care Manager Of Quality Name Role Phone Royer Hidalgo MD Primary Care Provider [phone] Royer Hidalgo MD Primary Care Provider [phone] Priyanka Zepeda MD Primary Care Provider Unavailab le Encounter Details Date Type Department Care Team (Latest Contact Info) Description 09/29/[address] [facility] Social History Tobacco Use Types Packs/Day Years Used Date Smoking Tobacco: Never Assessed Comments Unknown Sex and Gender Information Value Date Recorded Sex Assigned at Not on file Legal Sex Female 5:47 PM CDT Gender Identity Female 07/17/2022 10:27 AM SHIPPING RECEIVING CLERK Sexual Orientation Straight 07/17/2022 10 :27 AM SHIPPING RECEIVING CLERK documented as of this encounter Plan of Treatment Upcoming Encounters Date Type Department Care Team (Late st Contact Info) Description 07/25/2024 10:00 AM SHIPPING RECEIVING CLERK Office Visit [facility] Family & Internal Medicine [facility] [address] [place] [address] Keyonna Armstrong APNP [address] [place] [address] 07/31/2024 10:15 AM SHIPPING RECEIVING CLERK Office Visit [facility], [facility] [address] [place], [place] [phone] Pepe Mitchell MD [facility]. [facility] [address] [place], [place] [id number] documented as of this encounter Visit Diagnoses Not on filedocumented in this encounter Care Teams Manager Of Quality Relationship Specialty Start Date End Date Royer Hidalgo MD PCP - General 04/25/16 09/14/16 Royer Hidalgo MD PCP - General 05/14/15 04/24/16 Priyanka Zepeda MD PCP - General 04/22/13 05/13/15 documented as of this encounter
--- OUTSIDE RECORDS SUMMARY | 2024-07-10 23:02 | XMS_ITS | Encounter Summary ---
Author Organization [facility] Address [facility]. [place], [place] [address] [place] [address] Care Team Providers Care Retort Load Expediter Name Role Phone Royer Hidalgo MD Primary Care Provider [phone] Royer Hidalgo MD Primary Care Provider [phone] Priyanka Zepeda MD Primary Care Provider Unavailab Priyanka Cruz MD Primary Care Provider Unavailab lew Encounter Details Date Type Department Care Team (Latest Contact Info) Description 07/24/2012 Abstract [facility] Social History Tobacco Use Types Packs/Day Years Used Date Smoking Tobacco: Never Assessed Comments Unknown Sex and Gender Information Value Date Recorded Sex Assigned at Not on file Legal Sex Female 5:47 PM CDT Gender Identity Female 07/17/2022 10:27 AM DENTAL DETAIL REPRESENTATIVE Sexual Orientation Straight 07/17/2022 10 :27 AM DENTAL DETAIL REPRESENTATIVE documented as of this encounter Progress Notes * Generic Conversion MD Marti - 07/24/2012 11:49 AM CST Message Recorded as Task Date: 07/24/2012 11:01 AM, Created By: Joanne Urbina Task Name: Medical Complaint Callback Assigned To: [facility] Katelyn Regarding Patient: Veronica Evangelista, Status: Active Comment: Joanne Urbina - 24 Jul 2012 11:01 AM TASK CREATED Caller: Self; Medical Complaint; Pt given Tamazepam 30mg 30 day trial. Weaned of Zolpidem but having terrible nightmares on Tamazepam. Would like to go back to the Zolpidem ER 12.5mg if possible. [facility] Priyanka Posey - 24 Jul 2012 11:22 AM TASK REASSIGNED: Previously Assigned To Priyanka Zepeda ok Plan 1. Zolpidem Tartrate ER 12.5 MG Oral Tablet Extended Release; TAKE 1 TABLET AT BEDTIME NEEDED FOR SLEEP; Therapy: to (Evaluate:[id number]); Last Rx:24Jul2012 Signatures Electronically signed by : Demetra Carlson, ; Jul 24 2012 11:49AM (Author) AL DETAIL REPRESENTATIVE documented in this encounter Plan of Treatment Upcoming Encounters Date Type Department Care Team (Late st Contact Info) Description 07/25/2024 10:00 AM DENTAL DETAIL REPRESENTATIVE Office Visit [facility] Family & Internal Medicine - [address] [address] Keyonna Armstrong APNP [address] [place] [address] 07/31/2024 10:15 AM DENTAL DETAIL REPRESENTATIVE Office Visit [facility], [facility] [address] [place], [place] [phone] Pepe Mitchell MD [facility]. [facility] [address] [place], [place] [phone] documented as of this encounter Visit Diagnoses Not on filedocumented in this encounter Care Teams Retort Load Expediter Relationship Specialty Start Date End Date Royer Hidalgo MD PCP - General 04/25/16 09/14/16 Royer Hidalgo MD PCP - General 05/14/15 04/24/16 Priyanka Zepeda MD PCP - General 04/22/13 05/13/15 Priyanka Zepeda MD PCP - General 10/28/12 04/21/13 documented as of this encounter
--- OUTSIDE RECORDS SUMMARY | 2024-07-10 23:02 | XMS_ITS | Encounter Summary ---
Author Organization [facility] Address [facility]6 [facility]. [place], [place] [address] [place] [address] Care Team Providers Care Qa Auditor Name Role Phone Royer Hidalgo MD Primary Care Provider [phone] Royer Hidalgo MD Primary Care Provider [phone] Priyanka Zepeda MD Primary Care Provider Unavailab le Encounter Details Date Type Department Care Team (Latest Contact Info) Description 10/01/2013 Abstract [facility] Medical Group Social History Tobacco Use Types Packs/Day Years Used Date Smoking Tobacco: Never Assessed Comments Unknown Sex and Gender Information Value Date Recorded Sex Assigned at Not on file Legal Sex Female 5:47 PM CDT Gender Identity Female 07/17/2022 10:27 AM TECHNICAL ENGINEER Sexual Orientation Straight 07/17/2022 10 :27 AM TECHNICAL ENGINEER documented as of this encounter Progress Notes * Royer Hidalgo MD - 10/01/2013 8:09 AM CDT Message Recorded as Task Date: 09/30/2013 10:14 AM, Created By: Jeni Rich Task Name: Call Back Assigned To: [facility] Nursing Team Regarding Patient: Veronica Evangelista, Status: Active Comment: Jeni Rich - 30 Sep 2013 10:14 AM TASK CREATED Caller: Self; General Medical Question; patient called and stated that she finished the anitbiotic last night but that her finger was stilla little infected and was wondering is she needed to continue on anitbiotics and get a refill she does not need pain meds can you let her know what you think please? Royer Hidalgo - 30 Sep 2013 3:19 PM TASK EDITED I'd recommend watching for 2-3 days, consider abx if not improving or worsening. StalinMarcella - 01 Oct 2013 8:09 AM TASK EDITED Pt notified of above, verbalized understanding, denies any questions at this time. Current Meds 1. Amitriptyline HCl - 25 MG Oral Tablet; TAKE ONE TABLET BY MOUTH DAILY AT BEDTIME; Therapy: [id number] to (Evaluate:07Adl8006) Requested for: 51Mmu5182; Last Rx:[id number] Ordered 2. Enpresse-28 Oral Tablet; TAKE 1 TABLET DAILY DIRECTED; Therapy: 30May2012 to (Evaluate:22Dec2013) Requested for: 09Jun2013; Last Rx:09Jun2013 Ordered 3. Gas Relief CAPS; Therapy: (Recorded:23Sep2013) to Recorded 4. Hydrochlorothiazide 25 MG Oral Tablet; TAKE ONE TABLET BY MOUTH EVERY DAY; Therapy: 20May2012 to (Evaluate:51Cdn0129) Requested for: 14Dfy2876; Last Rx:[id number] Ordered 5. Hydrocodone-Acetaminophen 5-325 MG Oral Tablet; TAKE 1 TO 2 TABLETS EVERY 4 TO 6 HOURS NEEDED FOR PAIN. NO MORE THAN 8 TABLETS PER DAY; Therapy: 25Sep2013 to (Evaluate:27Sep2013); Last Rx:25Sep2013 Ordered 6. LORazepam 0.5 MG Oral Tablet; TAKE 1 TABLET BY MOUTH TWICE DAILY; Therapy: 77Qec9222 to (Evaluate:09Oct2013) Requested for: 10Xnv7274; Last Rx:[id number] Ordered 7. MetFORMIN HCl - 500 MG Oral Tablet; Therapy: 24Dec2011 to Recorded 8. Multivitamins TABS; Therapy: (Recorded:23Sep2013) to Recorded 9. Pantoprazole Sodium 40 MG Oral Tablet Delayed Release; TAKE ONE TABLET BY MOUTH EVERY DAY; Therapy: 08Jun2012 to (Evaluate:95Wzq8340) Requested for: 16Jun2013; Last Rx:16Jun2013 Ordered 10. Sulfamethoxazole-TMP DS 800-160 MG Oral Tablet; TAKE 1 TABLET TWICE DAILY UNTIL FINISHED; Therapy: 25Sep2013 to (Evaluate:02Oct2013) Requested for: 25Sep2013; Last Rx:25Sep2013 Ordered 11. Venlafaxine HCl ER 75 MG Oral Capsule Extended Release 24 Hour; Take 1 capsule in am and 2 capsule in evening; Therapy: 13May2012 to (Evaluate:13Aug2014) Requested for: 18Aug2013; Last Rx:18Aug2013 Ordered 12. Vitamin D3 1000 UNIT Oral Tablet; Therapy: (Recorded:23Sep2013) to Recorded 13. Zolpidem Tartrate 10 MG Oral Tablet (Ambien); TAKE 1 TABLET AT BEDTIME NEEDED FOR INSOMNIA; Therapy: 23Sep2013 to (Evaluate:91Hbi7109); Last Rx:23Sep2013 Ordered Signatures Electronically signed by : Royer Hidalgo M.D.; Oct 01 2013 8:37AM TECHNICAL ENGINEER (Author) documented in this encounter Plan of Treatment Upcoming Encounters Date Type Department Care Team (Late st Contact Info) Description 07/25/2024 10:00 AM TECHNICAL ENGINEER Office Visit [facility] Family & Internal Medicine [facility] [address] [place] [address] Keyonna Armstrong APNP [facility] [place] [address] 07/31/2024 10:15 AM TECHNICAL ENGINEER Office Visit [facility], [facility] [address] [place] [address] Pepe Mitchell MD [facility]. [facility] [address] [place] [address] documented as of this encounter Visit Diagnoses Not on filedocumented in this encounter Care Teams Qa Auditor Relationship Specialty Start Date End Date Royer Hidalgo MD PCP - General 04/25/16 09/14/16 Royer Hidalgo MD PCP - General 05/14/15 04/24/16 Priyanka Zepeda MD PCP - General 04/22/13 05/13/15 documented as of this encounter
--- OUTSIDE RECORDS SUMMARY | 2024-07-10 23:02 | XMS_ITS | Encounter Summary ---
Author Organization [facility] Address [facility]6 [facility]. [place], [place] [address] [place] [address] Care Team Providers Care Cub Reporter Name Role Phone Royer Hidalgo MD Primary Care Provider [phone] Royer Hidalgo MD Primary Care Provider [phone] Priyanka Zepeda MD Primary Care Provider Unavailab le Priyanka Zepeda MD Primary Care Provider Unavailab le Encounter Details Date Type Department Care Team (Latest Contact Info) Description 03/04/2013 Abstract [facility] Medical Group Social History Tobacco Use Types Packs/Day Years Used Date Smoking Tobacco: Never Assessed Comments Unknown Sex and Gender Information Value Date Recorded Sex Assigned at Not on file Legal Sex Female 5:47 PM CDT Gender Identity Female 07/17/2022 10:27 AM JAVA TECH Sexual Orientation Straight 07/17/2022 10 :27 AM JAVA TECH documented as of this encounter Plan of Treatment Upcoming Encounters Date Type Department Care Team (Late st Contact Info) Description 07/25/2024 10:00 AM JAVA TECH Office Visit [facility] Group Family & Internal Medicine - [place] [address] [place] [address] Keyonna Armstrong APNP [address] [place] [address] 07/31/2024 10:15 AM JAVA TECH Office Visit [facility], [facility] [address] [place] [address] Pepe Mitchell MD [facility]. [place] [address] [place] [address] documented as of this encounter Visit Diagnoses Not on filedocumented in this encounter Care Teams Cub Reporter Relationship Specialty Start Date End Date Royre Hidalgo MD PCP - General 04/25/16 09/14/16 Royer Hidalgo MD PCP - General 05/14/15 04/24/16 Priyanka Zepeda MD PCP - General 04/22/13 05/13/15 Priyanka Zepeda MD PCP - General 10/28/12 04/21/13 documented as of this encounter
--- OUTSIDE RECORDS SUMMARY | 2024-07-10 23:02 | XMS_ITS | Encounter Summary ---
Author Organization [facility] Address [facility]6 [facility]. [place], [place] [address] [place] [address] Care Team Providers Care Mortgage Loan Funder Name Role Phone Royer Hidalgo MD Primary Care Provider [phone] Royer Hidalgo MD Primary Care Provider [phone] Priyanka Zepeda MD Primary Care Provider Unavailab le Encounter Details Date Type Department Care Team (Latest Contact Info) Description 11/28/2013 Abstract [facility] Social History Tobacco Use Types Packs/Day Years Used Date Smoking Tobacco: Never Assessed Comments Unknown Sex and Gender Information Value Date Recorded Sex Assigned at Not on file Legal Sex Female 5:47 PM CDT Gender Identity Female 07/17/2022 10:27 AM RATE REVIEWER Sexual Orientation Straight 07/17/2022 10 :27 AM RATE REVIEWER documented as of this encounter Progress Notes * Royer Hidalgo MD - 11/28/2013 2:19 PM CDT Message Recorded as Task Date: 11/27/2013 03:56 PM, Created By: Rachel Urena Task Name: Renew Medication Assigned To: Marcella Gant Regarding Patient: Veronica Evangelista, Status: Active Comment: Rachel Urena - 27 Nov 2013 3:56 PM TASK CREATED Caller: Self; Renew Medication; Pt. would like to change her sleeping meds, Amitriptyline Hcl 10mg, she said it doesn't work and hasn't for a long time. She only wants a 7 day trial for a new med to see if it will work, if possible? Send to [facility] in [place]. Marcella Gant - 28 Nov 2013 8:27 AM TASK EDITED Left message for pt to call back Marcella Gant - 28 Nov 2013 8:51 AM TASK EDITED Pt states the Ambien 10mg is not effective, would like to try an alternative medication. Pharmacy: [facility] [place] Royer Hidalgo - 28 Nov 2013 2:02 PM TASK EDITED Recommend D/C of ambien and amitryptiline. Start trazodone 50mg 1-2 tabs at bedtime as needed (#30 Ref 0). Marcella Gant - 28 Nov 2013 2:32 PM TASK EDITED Pt notified of above. Pt verbalized understanding, denies any questions at this time. Trazodone ordered, sent to [facility] in [place] per pt request. Current Meds 1. Amitriptyline HCl - 50 MG Oral Tablet; TAKE 1 TABLET AT BEDTIME; Therapy: 26Fst4625 to (Evaluate:60Dnw4015) Requested for: [id number]; Last Rx:[id number] Ordered 2. Enpresse-28 Oral Tablet; TAKE 1 TABLET DAILY DIRECTED; Therapy: 30May2012 to (Evaluate:22Dec2013) Requested for: 01Pao5253; Last Rx:[id number] Ordered 3. Gas Relief CAPS; Therapy: (Recorded:23Sep2013) to Recorded 4. Hydrochlorothiazide 25 MG Oral Tablet; TAKE ONE TABLET BY MOUTH EVERY DAY; Therapy: 20May2012 to (Evaluate:05Kmb6615) Requested for: [id number]; Last Rx:[id number] Ordered 5. Hydrocodone-Acetaminophen 5-325 MG Oral Tablet; TAKE 1 TO 2 TABLETS EVERY 4 TO 6 HOURS NEEDED FOR PAIN. NO MORE THAN 8 TABLETS PER DAY; Therapy: 25Sep2013 to (Evaluate:27Sep2013); Last Rx:25Sep2013 Ordered 6. LORazepam 0.5 MG Oral Tablet; Take 1 tablet twice a day; Therapy: 62Lol6456 to (Evaluate:16Wsh1329) Requested for: 10Nov2013; Last Rx:[id number] Ordered 7. MetFORMIN HCl - 500 MG Oral Tablet; Therapy: 24Dec2011 to Recorded 8. Multivitamins TABS; Therapy: (Recorded:23Sep2013) to Recorded 9. Pantoprazole Sodium 40 MG Oral Tablet Delayed Release; TAKE ONE TABLET BY MOUTH EVERY DAY; Therapy: 08Jun2012 to (Evaluate:48Nda5642) Requested for: 16Jun2013; Last Rx:16Jun2013 Ordered 10. [...] BEDTIME NEEDED FOR INSOMNIA; Therapy: 23Sep2013 to (Evaluate:29Isj1972); Last Rx:23Sep2013 Ordered Plan 1. Start: TraZODone HCl - 50 MG Oral Tablet; Take 1-2 tablets at bedtime as needed for sleep Signatures Electronically signed by : Royer Hidalgo M.D.; Nov 28 2013 2:36PM RATE REVIEWER (Author) REVIEWER documented in this encounter Plan of Treatment Upcoming Encounters Date Type Department Care Team (Late st Contact Info) Description 07/25/2024 10:00 AM RATE REVIEWER Office Visit [facility] Family & Internal Medicine - [place] [address] [place] [address] Keyonna Armstrong APNP [address] [place] [address] 07/31/2024 10:15 AM RATE REVIEWER Office Visit [facility], [facility] [address] [place] [address] Pepe Mitchell MD [facility]. [facility] [address] [place] [address] documented as of this encounter Visit Diagnoses Not on filedocumented in this encounter Care Teams Mortgage Loan Funder Relationship Specialty Start Date End Date Royer Hidalgo MD PCP - General 04/25/16 09/14/16 Royer Hidalgo MD PCP - General 05/14/15 04/24/16 Priyanka Zepeda MD PCP - General 04/22/13 05/13/15 documented as of this encounter
--- OUTSIDE RECORDS SUMMARY | 2024-07-10 23:02 | XMS_ITS | Encounter Summary ---
Author Organization [facility] Address Formerly [facility], [id number] [facility]. [place], [place] [address] [place] [address] Care Team Providers Care Security Operations Center Operator Name Role Phone Royer Hidalgo MD Primary Care Provider [phone] Royer Hidalgo MD Primary Care Provider [phone] Priyanka Zepeda MD Primary Care Provider Unavailab le Encounter Details Date Type Department Care Team (Latest Contact Info) Description 08/27/2014 Abstract [facility] Social History Tobacco Use Types Packs/Day Years Used Date Smoking Tobacco: Never Assessed Comments Unknown Sex and Gender Information Value Date Recorded Sex Assigned at Not on file Legal Sex Female 5:47 PM CDT Gender Identity Female 07/17/2022 10:27 AM APPLIQUE SEWER Sexual Orientation Straight 07/17/2022 10 :27 AM APPLIQUE SEWER documented as of this encounter Progress Notes * Royer Hidalgo MD - 08/27/2014 10:03 AM CST Message Recorded as Task Date: 08/27/2014 08:11 AM, Created By: Marcella Gant Task Name: Renew Medication Assigned To: Marcella Gant Regarding Patient: Veronica Evangelista, Status: Active Comment: Marcella Gant - 27 Aug 2014 8:11 AM TASK CREATED Pt reports Zaleplon did not help, states she believes Zolpidem Tartrate ER 12.5mg works the best ofall she has tried. Requests refill, ok to fill? Royer Hidalgo - 27 Aug 2014 9:16 AM TASK EDITED Okay to fill... Marcella Gant - 27 Aug 2014 10:05 AM TASK EDITED Med called to [facility] in [place] per pt request. Current Meds 1. Amitriptyline HCl - 25 MG Oral Tablet; TAKE 1 TO 2 TABLETS BY MOUTH EVERY EVENING AT BEDTIME; Therapy: [id number] to (Evaluate:16Nov2014) Requested for: 18Aug2014; Last Rx:18Aug2014 Ordered 2. Atenolol 50 MG Oral Tablet; TAKE 1 TABLET BY MOUTH TWICE A DAY NEEDED; Therapy: 53Ypp1395 to (Evaluate:30Dec2014) Requested for: 21Dgs1459; Last Rx:[id number] Ordered 3. Enpresse-28 Oral Tablet; Take 1 tablet daily as directed; Therapy: 30May2012 to (Evaluate:28Dec2014) Requested for: 15Jun2014; Last Rx:15Jun2014 Ordered 4. Hydrochlorothiazide 25 MG Oral Tablet; TAKE ONE TABLET BY MOUTH EVERY DAY; Therapy: 20May2012 to (Evaluate:30Dec2014) Requested for: 42Yyq2702; Last Rx:[id number]; Status: ACTIVE - Renewal Denied Ordered 5. Ibuprofen 800 MG Oral Tablet; TAKE 1 TABLET 3 TIMES DAILY WITH FOOD NEEDED for pain; Therapy: 11Aug2014 to (Evaluate:10Oct2014) Requested for: 11Aug2014; Last Rx:11Aug2014 Ordered 6. LORazepam 0.5 MG Oral Tablet; TAKE 1 TABLET BY MOUTH TWICE A DAY NEEDED; Therapy: 97Osb6202 to (Evaluate:51Bgg2002) Requested for: 13Aug2014; Last Rx:13Aug2014 Ordered 7. MetFORMIN HCl - 500 MG Oral Tablet; TAKE 1 TABLET EVERY MORNING AND THEN TAKE 2 TABLETS AT BEDTIME; Therapy: 24Dec2011 to (Evaluate:14Nzx1218) Requested for: 29Jul2014; Last Rx:29Jul2014 Ordered 8. Methocarbamol 750 MG Oral Tablet; TAKE 1 TO 2 TABLETS 3 TIMES DAILY NEEDED FOR MUSCLE SPASM; Therapy: 11Aug2014 to (Evaluate:21Aug2014) Requested for: 11Aug2014; Last Rx:11Aug2014 Ordered 9. Multivitamins TABS; Therapy: (Recorded:23Sep2013) to Recorded 10. Pantoprazole Sodium 40 MG Oral Tablet Delayed Release; TAKE ONE TABLET BY MOUTH EVERY DAY; Therapy: 81Yqx4831 to (Evaluate:57Acc1965) Requested for: 33Xhz7127; Last Rx:[id number] Ordered 11. Polyethylene Glycol 3350 Oral Powder; MIX 1 CAPFUL (17GM) IN 8 OUNCES OF WATER, JUICE, OR TEA AND DRINK DAILY; Therapy: 55Xkh4186 to (Evaluate:59Ywt5095) Requested for: 60Rgh2190; Last Rx:[id number] Ordered 12. Venlafaxine HCl ER 75 MG Oral Capsule Extended Release 24 Hour; Take 1 capsule in am and 2 capsule in evening; Therapy: 86Pyc3285 to (Evaluate:81Coh3597) Requested for: 05Aug2014; Last Rx:[id number] Ordered 13. Vitamin D3 1000 UNIT Oral Tablet; Therapy: (Recorded:23Sep2013) to Recorded Plan 1. Renew: Zolpidem Tartrate ER 12.5 MG Oral Tablet Extended Release (Ambien CR 12.5 MG Oral Tablet Extended Release); TAKE 1 TABLET BY MOUTH AT BEDTIME NEEDED FOR SLEEP Signatures Electronically signed by : Royer Hidalgo M.D.; Aug 27 2014 2:07PM APPLIQUE SEWER (Author) documented in this encounter Plan of Treatment Upcoming Encounters Date Type Department Care Team (Late st Contact Info) Description 07/25/2024 10:00 AM APPLIQUE SEWER Office Visit [facility] [place] [address] [place] [address] Keyonna Armstrong APNP [address] [place] [address] 07/31/2024 10:15 AM APPLIQUE SEWER Office Visit [facility], [facility] [address] [place], [place] [id number] Pepe Mitchell MD [facility]. [facility] [address] [place], [place] [phone] documented as of this encounter Visit Diagnoses Not on filedocumented in this encounter Care Teams Security Operations Center Operator Relationship Specialty Start Date End Date Royer Hidalgo MD PCP - General 04/25/16 09/14/16 Royer Hidalgo MD PCP - General 05/14/15 04/24/16 Priyanka Zepeda MD PCP - General 04/22/13 05/13/15 documented as of this encounter
--- OUTSIDE RECORDS SUMMARY | 2024-07-10 23:14 | XMS_ITS | Encounter Summary ---
Author Organization [facility] Address [address] [place] [address] Phone Care Team Providers Care Business Services Representative Name Role Phone Keyonna Armstrong APRN, BETY Primary Care Provider + Encounter Details Date Type Department Care Team (Late Contact Info) Description 02/28/2024 Telephone [facility] [address] [address] Woody Horvath MD [address] [address] Social History Tobacco Use Types Packs/Day Years Used Date Smoking Tobacco: Never Smokeless Tobacco: Never Alcohol Use Standard Drinks/Week Comments Not Currently 0 (1 standard drink = 0.6 oz pur e alcohol) Comments Unknown Sex and Gender Information Value Date Recorded Sex Assigned at Not on file Legal Sex Female 1:39 PM NUT TIGHTENER Gender Identity Not on file Sexual Orientation Not on file documented as of this encounter Miscellaneous Notes * Telephone Encounter - Keyla Alan - 02/28/2024 3:33 PM CDT Couldn't reach pt about missed office visit lvm stating to return call to office for rescheduling,sent reminder letter out. documented in this encounter Plan of Treatment Upcoming Encounters Date Type Department Care Team (Late st Contact Info) Description 03/30/2025 9:45 AM CDT Office Visit [facility] [address] [place] [phone] Woody Horvath MD [address] [address] documented as of this encounter Visit Diagnoses Not on filedocumented in this encounter Care Teams Business Services Representative Relationship Specialty Start Date End Date Keyonna Armstrong APRN, PROFILING MACHINE SET UP OPERATOR [address] [place] [address] PCP - General Family Medicine 10/19/22 documented as of this encounter
--- OUTSIDE RECORDS SUMMARY | 2024-07-10 23:14 | XMS_ITS | Encounter Summary ---
Author Organization [facility] Care Team Providers Care Immigration Associate Name Role Phone Keyonna Armstrong APRN, BETY Primary Care Provider + Encounter Details Date Type Department Care Team (Latest Contact Info) Description 03/31/2024 Travel Social History Tobacco Use Types Packs/Day Years Used Date Smoking Tobacco: Never Smokeless Tobacco: Never Alcohol Use Standard Drinks/Week Comments Not Currently 0 (1 standard drink = 0.6 oz pur e alcohol) Comments Unknown Sex and Gender Information Value Date Recorded Sex Assigned at Not on file Legal Sex Female 1:39 PM DYE LAB TECHNICIAN Gender Identity Not on file Sexual Orientation Not on file documented as of this encounter Functional Status * Question Answer Date of Assessment Author Little interest or pleasure in doing things Not at all 03/31/2024 9:53 AM CDT Teresa Brewster CMA Feeling down, depressed, or hopeless Not at all 03/31/2024 9:53 AM CDT Teresa Brewster CMA * Over the past 2 weeks, how often have you been bothered by any of the following problems? Question Answer Date of Assessment Author Patient Health Questionnaire -2 Score 0 03/31/2024 9:53 AM CDT Teresa Brewster CMA documented as of this encounter Plan of Treatment Upcoming Encounters Date Type Department Care Team (Late st Contact Info) Description 03/30/2025 9:45 AM CDT Office Visit [facility] [address] [address] Woody Horvath MD [address] [address] documented as of this encounter Visit Diagnoses Not on filedocumented in this encounter Care Teams Immigration Associate Relationship Specialty Start Date End Date Keyonna Armstrong APRN, BETY [address] [place] [address] PCP - General Family Medicine 10/19/22 documented as of this encounter
--- OUTSIDE RECORDS SUMMARY | 2024-07-10 23:14 | XMS_ITS | Encounter Summary ---
Author Organization [facility] Address [address] [place] [address] Phone Care Team Providers Care Technical Associate Name Role Phone Keyonna Armstrong APRN, BETY Primary Care Provider + Reason for Visit * Reason Comments Follow-up Encounter Details Date Type Department Care Team (Latest Contact Info) Description 03/31/2024 9:45 AM CDT Office [facility] [address] [phone] Woody Horvath MD [address] [address] Lymphocytosis (Primary Dx) Social History Tobacco Use Types Packs/Day Years Used Date Smoking Tobacco: Never Smokeless Tobacco: Never Tobacco Cessation:Counseling Given: Not Answered Alcohol Use Standard Drinks/Week Comments Not Currently 0 (1 standard drink = 0.6 oz pur e alcohol) Comments Unknown Sex and Gender Information Value Date Recorded Sex Assigned at Not on file 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 Gender Identity Not on file Sexual Orientation Not on file documented as of this encounter Last Filed Vital Signs Vital Sign Reading Time Taken Comments Blood Pressure 128/64 03/31/2024 9:59 AM CDT Pulse 90 03/31/2024 9:59 AM CDT Temperature 36.3 ??C (97.3 ??F) 03/31/2024 9:59 AM CD T Respiratory Rate 18 03/31/2024 9:59 AM CDT Oxygen Saturation 98% 03/31/2024 9:59 AM CDT Inhaled Oxygen Concentration - - Weight 111.1 kg (245 lb) 03/31/2024 9:59 AM CDT Height 165.1 cm (5' 5) 03/31/2024 9:59 AM CDT Body Mass Index 40.77 03/31/2024 9:59 AM CDT documented in this encounter Functional Status * Question Answer [...] Brewster CMA documented as of this encounter Progress Notes * Woody Horvath MD - 03/31/2024 9:45 AM CDT Images from the original note were not included. Patient: Veronica Evangelista Age: 53 y.o. : 1970 Encounter Dept: [facility] Encounter Date: 03/31/2024 Care Team: Current Providers PCP: Keyonna Armstrong APRN, CNP Encounter Provider: Woody Horvath MD Referring Provider: Keyonna Armstrong APRN, CNP Consulting Physician: Woody Horvath MD HISTORY OF PRESENT ILLNESS: The patient's workup previously has been negative for lymphoproliferative. Flow cytometry has been okay. She is clinically okay. She is not smoking. She has no systemic symptoms. No fevers or chills. No weight loss or night sweats. DIAGNOSIS: Lymphocytosis. PAST TREATMENT: Not applicable. CURRENT TREATMENT: Re-check labs in 4-6 months. TREATMENT GUIDELINES: Not applicable. PROGNOSIS: Not applicable. EXPECTED RESPONSE TO TREATMENT: Not applicable. EXPECTED QUALITY OF LIFE DURING TREATMENT: Not applicable. ECOG: Not applicable. PAIN: Not applicable. PLAN FOR PAIN: Not applicable. CODE STATUS: Not applicable. END OF LIFE: Not applicable. ASSESSMENT: 1. Leukocytosis, etiology unclear. 2. Monocytosis, mild. 3. History of thrombocytosis but not on recent bloodwork. PLAN: 1. Repeat CBC. 2. Repeat LDH. 3. Follow up on a yearly basis at this point. We will hold on any bone marrow aspiration and biopsyfor now. TIME SPENT: PAST MEDICAL HISTORY, PAST SURGICAL HISTORY, SOCIAL HISTORY, ALLERGIES, AND MEDICATIONS are as per EMR. REVIEW OF SYSTEMS: See HPI; otherwise, 12-point review of systems is negative. PHYSICAL EXAM: VITAL SIGNS: As per EMR. GENERAL: Patient is awake, alert and oriented x3. HEENT: Normocephalic, atraumatic, PERRLA, EOMI. Sclerae nonicteric, conjunctivae normal. Nasopharynx negative. Tongue normal, uvula midline, no thrush, no mucosal lesions present. NECK: Supple. No cervical, supraclavicular, or axillary lymphadenopathy. Thyroid not palpable. LUNGS: Clear to auscultation and percussion in all lung white, no focal wheezes, rales, or rhonchi. HEART: Regular rhythm and rate. Normal S1, S2, no S3, S4, no murmur, or rub. ABDOMEN: No hepatosplenomegaly, masses, ascites, areas of tenderness, bruits, or hernias. EXTREMITIES: No clubbing, cyanosis, or edema. SKIN: No ecchymosis, petechiae, or rashes. NEURO: Nonfocal. MUSCULOSKELETAL: No joint tenderness or effusion. No spine tenderness. LABORATORY/PATHOLOGY/IMAGING NOTES: All lab results shown below reviewed. Woody Horvath MD/juan Vitals: Vitals: 03/31/24 0959 BP: 128/64 BP Location: Left Arm BP Position: Sitting BP Cuff Size: Regular Pulse: 90 Resp: 18 Temp: 97.3 ??F (36.3 ??C) TempSrc: Temporal SpO2: 98% Weight: 245 lb (111.1 kg) Height: 5' 5 (1.651 m) Body surface area is 2.26 meters squared. Body mass index is 40.77 kg/m??. Pain Score: 0 - No pain Allergies: Allergies Allergen Reactions Trazodone Hallucinations PMH/SgH/FH/SH: Past medical, surgical, family and social histories were reviewed at this visit. Past Medical History Positives Diagnosis Date Hypertension Leukocytosis Past Surgical History: Procedure Laterality Date GALLBLADDER SURGERY GASTRIC BYPASS SURGERY LITHOTRIPSY Family History Problem Relation Age of Onset Liver Disease Mother Heart Attack Father Crohn's Disease Brother Family Status Relation Name Status Mother Father Brother (Not Specified) No partnership data on file Social History Socioeconomic History Marital status: Tobacco Use Smoking status: Never Smokeless tobacco: Never Vaping Use Vaping status: Never Used Substance and Sexual Activity Alcohol use: Not Currently Drug use: Never Social Determinants of Health Intimate Partner Violence: Unknown (01/06/2020) [facility] Humiliation, Afraid, Rape, and Kick questionnaire Fear of Current or Ex-Partner: Patient declined Emotionally Abused: Patient declined Physically Abused: Patient declined Sexually Abused: Patient declined Oncology History: Oncology History No history exists. Cancer Staging: Cancer Staging No matching staging information was found for the patient. Cumulative dose Purpose/Goal Comments Lifetime Dose Tracking No doses have been documented on this patient for the following tracked chemicals: Doxorubicin, Epirubicin, Idarubicin, Daunorubicin, Mitoxantrone, Bleomycin, Ifosfamide, Methotrexate, Cyclophosphamide, Cisplatin, Carboplatin Current Medications: Outpatient Encounter Medications as of 03/31/2024 Medication Sig Dispense Refill amLODIPine (NORVASC) 5 MG Tablet Take 5 mg by mouth. buPROPion SR (WELLBUTRIN SR) 150 MG TABLET SR 12 HR Take 1 Tablet by mouth 2 times daily. [DISCONTINUED] buPROPion SR (WELLBUTRIN SR) 150 MG TABLET SR 12 HR Take 150 mg by mouth. buPROPion, Smoking Deter, (ZYBAN) 150 MG TABLET SR 12 HR Take 150 mg by mouth 2 times daily. Cholecalciferol 25 mcg Capsule Vitamin D3 25 mcg (1,000 unit) capsule CRANBERRY PO Take by mouth. cyclobenzaprine (FLEXERIL) 10 MG Tablet Take 1 Tablet by mouth 3 times daily as needed. dimenhyDRINATE (DRAMAMINE) 50 MG Tablet Take 50 mg by mouth. diphenhydrAMINE-acetaminophen (BENADRYL PM) 25-500 MG Tablet Take 1 Tablet by mouth daily. estradiol (VIVELLE) 0.05 MG/24HR PATCH BIWEEKLY 1 Patch by Transdermal route. gabapentin (NEURONTIN) 100 MG Capsule TAKE 1 CAPSULE BY MOUTH THREE TIMES A DAY hydroCHLOROthiazide 25 MG Tablet Take 1 Tablet by mouth daily. hydrOXYzine (ATARAX) 25 MG Tablet TAKE 1 TABLET BY MOUTH TWICE DAILY NEEDED ibuprofen (MOTRIN) 800 MG Tablet TAKE 1 TABLET BY MOUTH THREE TIMES DAILY NEEDED lisinopril (PRINIVIL, ZESTRIL) 20 MG Tablet lisinopril 20 mg tablet Take 1 tablet every day by oral route. [DISCONTINUED] LORazepam (ATIVAN) 0.5 MG Tablet lorazepam 0.5 mg tablet 3 tab po daily anxiety LORazepam (ATIVAN) 1 MG Tablet TAKE 1 TABLET BY MOUTH THREE TIMES DAILY NEEDED Magnesium 250 MG Tablet Take by mouth. Magnesium 400 MG Capsule Take 1 Capsule by mouth. metFORMIN (GLUCOPHAGE) 500 MG Tablet TAKE 1 TABLET BY MOUTH EVERY MORNING AND 2 TABLETS AT BEDTIME metoprolol Succinate (TOPROL-XL) 100 MG TABLET SR 24 HR Take 200 mg by mouth. [DISCONTINUED] metoprolol Succinate (TOPROL-XL) 100 MG TABLET SR 24 HR Take 100 mg by mouth. mirtazapine (REMERON) 15 MG Tablet Take 15 mg by mouth. Mounjaro 12.5 MG/0.5ML Solution Pen-injector 12.5 mg by Subcutaneous route. multi-vitamins Tablet Take 1 Tablet by mouth every morning. pantoprazole (PROTONIX) 20 MG Tablet Delayed Response TAKE 1 TABLET BY MOUTH DAILY. PATIENT MUST BESEEN FOR FURTHER REFILLS pantoprazole (PROTONIX) 40 MG Tablet Delayed Response [DISCONTINUED] tirzepatide (Mounjaro) 5 MG/0.5ML Solution Pen-injector 5 mg by Subcutaneous route. venlafaxine (EFFEXOR-XR) 75 MG CAPSULE SR 24 HR TAKE 1 CAPSULE BY MOUTH EVERY MORNING AND 2 CAPSULES EVERY EVENING zolpidem (AMBIEN) 10 MG Tablet TAKE 1 TABLET BY MOUTH AT BEDTIME NEEDED No facility-administered encounter medications on file as of 03/31/2024. Labs: No visits with results within 7 Day(s) from this visit. Latest known visit with results is: Lab on 07/26/2023 Component Date Value Ref Range Status LDH 07/26/2023 164 140 - 271 U/L Final WBC 07/26/2023 10.8 (H) 4.0 - 10.0 10*3/uL Final HGB 07/26/2023 14.5 11.2 - 15.7 g/dL Final HCT 07/26/2023 45.2 (H) 34.1 - 44.9 % Final PLT 07/26/2023 358 163 - 369 10*3/uL Final MPV 07/26/2023 8.9 (L) 9.4 - 12.4 fL Final RBC 07/26/2023 4.44 3.93 - 5.22 10*6/uL Final MCV 07/26/2023 102 (H) 79 - 95 fL Final MCH 07/26/2023 32.7 (H) 25.6 - 32.2 pg Final MCHC 07/26/2023 32.1 (L) 32.2 - 36.5 g/dL Final RDW 07/26/2023 15.6 (H) 11.6 - 14.4 % Final Absolute Neutrophil Count 07/26/2023 5,600 cells/uL Final Absolute Seg Count 07/26/2023 5,600 1,440 - 6,600 cells/uL Final Absolute Lymph Count 07/26/2023 4,523 (H) 760 - 4,000 cells/uL Final Absolute Sullivan Count 07/26/2023 646 160 - 1,200 cells/uL Final Segmented Neutrophils 07/26/2023 52 36 - 66 % Final Lymphocytes 07/26/2023 42 (H) 19 - 40 % Final Monocytes 07/26/2023 6 4 - 12 % Final WBC Estimate 07/26/2023 High Final Platelet Estimate 07/26/2023 Normal Final RBC Morphology 07/26/2023 Abnormal Final Macrocytosis 07/26/2023 1+ Final Anisocytosis 07/26/2023 1+ Final documented in this encounter Plan of Treatment Upcoming Encounters Date Type Department Care Team (Late st Contact Info) Description 03/30/2025 9:45 AM CDT Office Visit [facility] [address] [address] Woody Horvath MD [address] [place] [address] [place] [address] documented as of this encounter Results * LACTATE DEHYDROGENASE (LD) (03/31/2024 10:12 AM CDT) Pathologist [facility] LDH 147 140 - 271 U/L [facility] Blood 03/31/2024 10:1 2 AM CDT Narrative [facility] - 03/31/2024 10:57 AM CDT Release to patient->Immediate us Woody Horvath MD CHEMISTRY ORDERABLES Final R esult [facility] [place] [address], * (ABNORMAL) COMPLETE BLOOD COUNT (CBC) WITH DIFF (03/31/2024 10:12 AM CDT) Pathologist [facility] WBC 12.2(H) 4.0 - 10.0 10*3/uL [facility] HGB 13.9 11.2 - 15.7 g/dL [facility] HCT 43.2 34.1 - 44.9 % [facility] PLT 411(H) 163 - 369 10*3/uL [facility] MPV 8.5(L) 9.4 - 12.4 fL [facility] RBC 4.32 3.93 - 5.22 10*6/uL [facility] MCV 100(H) 79 - 95 fL [facility] MCH 32.2 25.6 - 32.2 pg [facility] MCHC 32.2 32.2 - 36.5 g/dL [facility] RDW 14.0 11.6 - 14.4 % [facility] Absolute Neutrophil Count 5,958 cells/uL [facility] ER SPECIALISTS [facility] Absolute Seg Count 5,958 1,440 - 6,600 cells/uL [facility] Absolute Lymph Count 4,864(H) 760 - 4,000 cells/uL [facility] Absolute Sullivan Count 1,094 160 - 1,200 cells/uL [facility] Absolute Eos Count 122 0 - 300 cells/uL [facility] Absolute Baso Count 122(H) 0 - 100 cells/uL [facility] Segmented Neutrophils 49 36 - 66 % [facility] Lymphocytes 40 19 - 40 % [facility] Monocytes 9 4 - 12 % [facility] [address] [facility] Eosinophils 1 0 - 3 % [facility] Basophils 1 0 - 1 % [facility] WBC Estimate High [facility] Platelet Estimate High [facility] RBC Morphology Abnormal CANCE R [facility] Macrocytosis 1+ [facility] Blood 03/31/2024 10:1 2 AM CDT Narrative [facility] 03/31/2024 12:57 PM CDT Release to patient->Immediate us Woody Horvath MD HEMATOLOGY ORDERABLES Final Result [facility] [address] [address], documented in this encounter Visit Diagnoses Diagnosis Lymphocytosis- Primary Lymphocytosis (symptomatic) Lymphocytosis Lymphocytosis (symptomatic) documented in this encounter Care Teams Technical Associate Relationship Specialty Start Date End Date Keyonna Armstrong, PRIMER BOXER, SHIP PILOT DISPATCHER [address] [place] [address] PCP - General Family Medicine 10/19/22 documented as of this encounter
--- OUTSIDE RECORDS SUMMARY | 2024-07-10 23:14 | XMS_ITS | Clinical Summary ---
Author Organization Address [address] [place] [address] Care Team Providers Care Bushel Worker Name Role Phone Keyonna Armstrong APRN, BETY Primary Care Provider + Allergies Active Allergy Reactions Criticality Noted Date Comments Trazodone Hallucinations Medium 08/28/2019 Medications Magnesium 250 MG Tablet Take by mouth. Activ e CRANBERRY PO Take by mouth. Ac tive zolpidem (AMBIEN) 10 MG Tablet TAKE 1 TABLET BY MOUTH AT BEDTIME NEEDED 8 Active metFORMIN (GLUCOPHAGE) 500 MG Tablet TAKE 1 TABLET BY MOUTH EVERY MORNING AND 2 TABLETS AT BEDTIME 8 Active hydroCHLOROthia zide 25 MG Tablet Take 1 Tablet by mouth daily. 8 Active venlafaxine (EFFEXOR-XR) 75 MG CAPSULE SR 24 HR TAKE 1 CAPSULE BY MOUTH EVERY MORNING AND 2 CAPSULES EVERY EVENING 0 Active Cholecalciferol 25 mcg Capsule Vitamin D3 25 mcg (1,000 unit) capsule 9 Active multi-vitamins Tablet Take 1 Tablet by mouth every morning. Active lisinopril (PRINIVIL, ZESTRIL) 20 MG Tablet lisinopril 20 mg tablet Take 1 tablet every day by oral route. Active pantoprazole (PROTONIX) 20 MG Tablet Delayed Response TAKE 1 TABLET BY MOUTH DAILY. PATIENT MUST BE SEEN FOR FURTHER REFILLS 1 Active gabapentin (NEURONTIN) 100 MG Capsule TAKE 1 CAPSULE BY MOUTH THREE TIMES A DAY 3 Active mirtazapine (REMERON) 15 MG Tablet Take 15 mg by mouth. 3 Active amLODIPine (NORVASC) 5 MG Tablet Take 5 mg by mouth. 3 Active Mounjaro 12.5 MG/0.5ML Solution Pen-injector 12.5 mg by Subcutaneous route. 4 09/17/19 25 Active pantoprazole (PROTONIX) 40 MG Tablet Delayed Response 9 Active metoprolol Succinate (TOPROL-XL) 100 MG TABLET SR 24 HR Take 200 mg by mouth. 8 Active Magnesium 400 MG Capsule Take 1 Capsule by mouth. Active LORazepam (ATIVAN) 1 MG Tablet TAKE 1 TABLET BY MOUTH THREE TIMES DAILY NEEDED Active buPROPion SR (WELLBUTRIN SR) 150 MG TABLET SR 12 HR Take 1 Tablet by mouth 2 times daily. Active cyclobenzaprine (FLEXERIL) 10 MG Tablet Take 1 Tablet by mouth 3 times daily as needed. Active estradiol (VIVELLE) 0.05 MG/24HR PATCH BIWEEKLY 1 Patch by Transdermal route. 4 Active hydrOXYzine (ATARAX) 25 MG Tablet TAKE 1 TABLET BY MOUTH TWICE DAILY NEEDED Active ibuprofen (MOTRIN) 800 MG Tablet TAKE 1 TABLET BY MOUTH THREE TIMES DAILY NEEDED Active dimenhyDRINATE (DRAMAMINE) 50 MG Tablet Take 50 mg by mouth. Active diphenhydrAMINE -acetaminophen (BENADRYL PM) 25-500 MG Tablet Take 1 Tablet by mouth daily. Active buPROPion, Smoking Deter, (ZYBAN) 150 MG TABLET SR 12 HR Take 150 mg by mouth 2 times daily. Active Active Problems Problem Noted Date Diagnosed Date Lymphocytosis 11/13/2022 Family History Medical History Relation Name Comments Crohn's Disease Brother Heart Attack Father Liver Disease Mother Relation Name Status Comments Brother Father Mother Social History Tobacco Use Types Packs/Day Years Used Date Smoking Tobacco: Never Smokeless Tobacco: Never Tobacco Cessation:Counseling Given: Not Answered Alcohol Use Standard Drinks/Week Comments Not Currently 0 (1 standard drink = 0.6 oz pur e alcohol) Comments Unknown Sex and Gender Information Value Date Recorded Sex Assigned at Not on file 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 Gender Identity Not on file Sexual Orientation Not on file Last Filed Vital Signs Vital Sign Reading [...] Mass Index 40.77 03/31/2024 9:59 AM CDT Plan of Treatment Upcoming Encounters Date Type Department Care Team (Late st Contact Info) Description 03/30/2025 9:45 AM CDT Office [facility] [address] [address] Woody Horvath MD [address] [place] [address] Health Maintenance Due Date Last Done Comments Hepatitis C Virus (HCV) Screening 1968 Hepatitis B Immunization (1 of 3 - 19+ 3-dose series) 1987 Pap Smear 1989 Cervical Cancer Screening (CCS) 1998 HPV/Cotest 1998 Cologuard 2018 Immunochemical Fecal Occult Blood 2018 Mammogram 2018 Zoster Immunization (2 of 2) 08/19/2023 06/24/2023 Influenza Immunization (#1) 2024 12/0 09/2022, 05/30/2022, 05/04/2021, Additional history exists SARS-COV-2 Immunization ( season) 2024 05/30/2022, 11/20/2020, 10/19/2020 Colonoscopy 01/11/2030 01/12/2020 Colorectal Cancer Screening 01/11/2030 Respiratory Syncytial Virus (RSV) Immunization (Adult) (1 - 1-dose 75+ series) 2043 01/12/2020 DTaP/Tdap/Td Immunization Discontinued 04/25/2016, 10/2015 TdaP Immunization Completed 04/25/2016 Pneumococcal Immunization Combined Aged Out 05/04/2021, 05/04/2021, 04/22/2019 No longer eligible based on patient's age to complete this topic Meningococcal Immunization (ACWY) Aged Out No longer eligible based on patient's age to complete this topic Rotavirus Immunization Aged Out No lo nger eligible based on patient's age to complete this topic Insurance MEDICARE C [facility] Care Teams Bushel Worker Relationship Specialty Start Date End Date Keyonna Armstrong APRN, SURGICAL TECHNOLOGIST [address] [place] [address] PCP - General Family Medicine 10/19/22
--- OUTSIDE RECORDS SUMMARY | 2024-07-10 23:14 | XMS_ITS | Encounter Summary ---
Author Organization [facility] Address [address] [place] [address] Phone Care Team Providers Care Solar Pv Installer Name Role Phone Keyonna Armstrong APRN, BETY Primary Care Provider + Encounter Details Date Type Department Care Team (Late Contact Info) Description 07/26/2023 1:55 PM STUDY ABROAD COORDINATOR Lab [facility] [address] [address] Lab, Cc [facility] [place] Lymphocytosis Social History Tobacco Use Types Packs/Day Years Used Date Smoking Tobacco: Never Smokeless Tobacco: Never Alcohol Use Standard Drinks/Week Comments Not Currently 0 (1 standard drink = 0.6 oz pur e alcohol) Comments Unknown Sex and Gender Information Value Date Recorded Sex Assigned at Not on file Legal Sex Female 1:39 PM STUDY ABROAD COORDINATOR Gender Identity Not on file Sexual Orientation Not on file documented as of this encounter Functional Status * Question Answer Date of Assessment Author Little interest or pleasure in doing things Not at all 07/26/2023 1:53 PM Ozzie Burk CMA Feeling down, depressed, or hopeless Not at all 07/26/2023 1:53 PM Sasha Burk CMA * Over the past 2 weeks, how often have you been bothered by any of the following problems? Question Answer Date of Assessment Author Patient Health Questionnaire-2 Score 0 07/26/2023 1:53 PM Erin Burk CMA documented as of this encounter Plan of Treatment Upcoming Encounters Date Type Department Care Team (Late st Contact Info) Description 03/30/2025 9:45 AM CDT Office Visit [facility] [address] [place] [address] Woody Horvath MD [address] [place] [address] documented as of this encounter Procedures Procedure Name Priority Date/Time Associated Diagnosis Comments LACTATE DEHYDROGENASE (LD) Routine 07/26/2023 1:47 PM STUDY ABROAD COORDINATOR Lymphocytosis COMPLETE BLOOD COUNT (CBC) WITH DIFF Routine 07/26/2023 1:47 PM STUDY ABROAD COORDINATOR Lymphocytosis documented in this encounter Results * (ABNORMAL) COMPLETE BLOOD COUNT (CBC) WITH DIFF (07/26/2023 1:47 PM STUDY ABROAD COORDINATOR) WBC 10.8(H) 4.0 - 10.0 10*3/uL [facility] HGB 14.5 11.2 - 15.7 g/dL [facility] HCT 45.2(H) 34.1 - 44.9 % [facility] PLT 358 163 - 369 10*3/uL [facility] MPV 8.9(L) 9.4 - 12.4 fL [facility] RBC 4.44 3.93 - 5.22 10*6/uL [facility] MCV 102(H) 79 - 95 fL [facility] MCH 32.7(H) 25.6 - 32.2 pg [facility] MCHC 32.1(L) 32.2 - 36.5 g/dL [facility] RDW 15.6(H) 11.6 - 14.4 % [facility] Absolute Neutrophil Count 5,600 cells/uL [facility] Absolute Seg Count 5,600 1,440 - 6,600 cells/uL [facility] Absolute Lymph Count 4,523(H) 760 - 4,000 cells/uL [facility] Absolute Spink Count 646 160 - 1,200 cells/uL [facility] Segmented Neutrophils 52 36 - 66 % [facility] Lymphocytes 42(H) 19 - 40 % [facility] C ENTER [facility] Monocytes 6 4 - 12 % [facility] [address] [address] [facility] WBC Estimate High [facility] Platelet Estimate Normal [facility] RBC Morphology Abnormal CANCE R [facility] Macrocytosis 1+ [facility] Anisocytosis 1+ [facility] Blood 07/26/2023 1:47 PM STUDY ABROAD COORDINATOR Narrative [facility] - 07/26/2023 4:05 PM STUDY ABROAD COORDINATOR Release to patient->Immediate Cindy Childress APRN, CNP HEMATOLOGY ORDERABLES Final Result [facility] [address] [place] [address], [place] [phone] * LACTATE DEHYDROGENASE (LD) (07/26/2023 1:47 PM STUDY ABROAD COORDINATOR) LDH 164 140 - 271 U/L [facility] Blood 07/26/2023 1:47 PM STUDY ABROAD COORDINATOR Narrative [facility] 07/26/2023 2:36 PM STUDY ABROAD COORDINATOR Release to patient->Immediate Cindy Childress APRN, CNP CHEMISTRY ORDERABLES Final Result Performing Organization Address City/[facility]/ZIP Co de Phone Number [facility] [address] [place] [address], [place] [phone] documented in this encounter Visit Diagnoses Diagnosis Lymphocytosis Lymphocytosis (symptomatic) documented in this encounter Care Teams Solar Pv Installer Relationship Specialty Start Date End Date Keyonna Armstrong APRN, BETY [address] [place] [phone] PCP - General Family Medicine 10/19/22 documented as of this encounter
--- OUTSIDE RECORDS SUMMARY | 2024-07-10 23:14 | XMS_ITS | Encounter Summary ---
Author Organization [facility] Care Team Providers Care Linen Controller Name Role Phone Keyonna Armstrong APRN, BETY Primary Care Provider + Encounter Details Date Type Department Care Team (Latest Contact Info) Description 07/26/2023 Travel Social History Tobacco Use Types Packs/Day Years Used Date Smoking Tobacco: Never Smokeless Tobacco: Never Alcohol Use Standard Drinks/Week Comments Not Currently 0 (1 standard drink = 0.6 oz pur e alcohol) Comments Unknown Sex and Gender Information Value Date Recorded Sex Assigned at Not on file Legal Sex Female 1:39 PM CONDUIT WORKER Gender Identity Not on file Sexual Orientation Not on file documented as of this encounter Functional Status * Question Answer Date of Assessment Author Little interest or pleasure in doing things Not at all 07/26/2023 1:53 PM Ozzie Burk CMA Feeling down, depressed, or hopeless Not at all 07/26/2023 1:53 PM CONDUIT WORKER Sasha Salamanca CMA * Over the past 2 weeks, [...] CDT Office Visit [facility] [address] [address] Woody Horvath MD [address] [place] [phone] documented as of this encounter Visit Diagnoses Not on filedocumented in this encounter Care Teams Linen Controller Relationship Specialty Start Date End Date Keyonna Armstrong APRN, BETY [address] [place] [phone] PCP - General Family Medicine 10/19/22 documented as of this encounter
--- OUTSIDE RECORDS SUMMARY | 2024-07-10 23:14 | XMS_ITS | Encounter Summary ---
Author Organization [facility] Address [address] [place] [address] Phone Care Team Providers Care City Letter Carrier Name Role Phone Keyonna Armstrong APRN, BETY Primary Care Provider + Encounter Details Date Type Department Care Team (Late st Contact Info) Description 03/31/2024 10:10 AM CDT Lab [facility] [address] [id number] Lab, Cc [facility] [place] Lymphocytosis Social History Tobacco Use Types Packs/Day Years Used Date Smoking Tobacco: Never Smokeless Tobacco: Never Alcohol Use Standard Drinks/Week Comments Not Currently 0 (1 standard drink = 0.6 oz pur e alcohol) Comments Unknown Sex and Gender Information Value Date Recorded Sex Assigned at Not on file Legal Sex Female 1:39 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 DRIVER Gender Identity Not on file Sexual Orientation Not on file documented as of this encounter Functional Status * Question Answer Date of Assessment Author Little interest or pleasure in doing things Not at all 03/31/2024 9:53 AM CDT Teresa Brewtser CMA Feeling down, depressed, or hopeless Not [...] AM CDT Office Visit [facility] [address] [place] [address] Woody Horvath MD [address] [place], [place] [address] documented as of this encounter Procedures Procedure Name Priority Date/Time Associated Diagnosis Comments LACTATE DEHYDROGENASE (LD) Routine 03/31/2024 10:12 AM CDT Lymphocytosis COMPLETE BLOOD COUNT (CBC) WITH DIFF Routine 03/31/2024 10:12 AM CDT Lymphocytosis documented in this encounter Results * LACTATE DEHYDROGENASE (LD) (03/31/2024 10:12 AM CDT) LDH 147 140 - 271 U/L [facility] Blood 03/31/2024 10:1 2 AM CDT Narrative [facility] - 03/31/2024 10:57 AM CDT Release to patient->Immediate us Woody Horvath MD CHEMISTRY ORDERABLES Final R esult [facility] [place] [address], * (ABNORMAL) COMPLETE BLOOD COUNT (CBC) WITH DIFF (03/31/2024 10:12 AM CDT) WBC 12.2(H) 4.0 - 10.0 10*3/uL [facility] FUSELAGE FR[facility]ER [facility] HGB 13.9 11.2 - 15.7 g/dL [facility] FUSELAGE FRAMER [facility] HCT 43.2 34.1 - 44.9 % [facility] FUSELAGE FRAMER [facility] PLT 411(H) 163 - 369 10*3/uL [facility]LAGE [facility] MPV 8.5(L) 9.4 - 12.4 fL [facility] FUSELAGE FR[facility]ER [facility] RBC 4.32 3.93 - 5.22 10*6/uL CAN[facility]ER FUSELAGE FRAMER [facility] MCV 100(H) 79 - 95 fL [facility] FUSELAGE FR[facility] MCH 32.2 25.6 - 32.2 pg CAN[facility]ER FUSELAGE FRAMER [facility] MCHC 32.2 32.2 - 36.5 g/dL [facility] FUSELAGE FR[facility] RDW 14.0 11.6 - 14.4 % CAN[facility]ER FUSELAGE FRAMER [facility] Absolute Neutrophil Count 5,958 cells/uL [facility] Absolute Seg Count 5,958 1,440 - 6,600 cells/uL [facility]USELAGE [facility] Absolute Lymph Count 4,864(H) 760 - 4,000 cells/uL [facility] Absolute [place] Count 1,094 160 - 1,200 cells/uL [facility] Absolute Eos Count 122 0 - 300 cells/uL [facility]USELAGE [facility] Absolute Baso Count 122(H) 0 - 100 cells/uL [facility] Segmented Neutrophils 49 36 - 66 % [facility] Lymphocytes 40 19 - 40 % [facility] Monocytes 9 4 - 12 % [facility] Eosinophils 1 0 - 3 % [facility] Basophils 1 0 - 1 % [facility] WBC Estimate High [facility] Platelet Estimate High [facility] RBC Morphology Abnormal CANCE R FUSELAGE FR[facility]ER [facility] Macrocytosis 1+ [facility]ER FUSELAGE FR[facility] Blood 03/31/2024 10:1 2 AM CDT Narrative [facility] - 03/31/2024 12:57 PM CDT Release to patient->Immediate us Woody Horvath MD HEMATOLOGY ORDERABLES Final Result [facility] [place] [address], documented in this encounter Visit Diagnoses Diagnosis Lymphocytosis Lymphocytosis (symptomatic) documented in this encounter Care Teams City Letter Carrier Relationship Specialty Start Date End Date Keyonna Armstrong, MISSION PLANNER, MANDARIN TEACHER [address] [place] [phone] PCP - General Family Medicine 10/19/22 documented as of this encounter
--- OUTSIDE RECORDS SUMMARY | 2024-07-10 23:15 | XMS_ITS | Encounter Summary ---
Author Organization [facility] Address [address] [place] [address] Care Team Providers Care Forensic Specialist Name Role Phone Unavailable Primary Care Provider Unavailabl e Encounter Details Date Type Department Care Team (Late st Contact Info) Description 06/26/2020 Lab Requisition [facility] Community Testing 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 DIRECTOR Gender Identity Not on file Sexual Orientation Not on file documented as of this encounter Plan of Treatment Upcoming Encounters Date Type Department Care Team (Late st Contact Info) Description 03/30/2025 9:45 AM CDT Office Visit [facility] [address] [address] Woody Horvath MD [address] [address] documented as of this encounter Procedures Procedure Name Priority Date/Time Associated Diagnosis Comments SARS-COV-2 PCR [facility] ONLY Routine 06/26/2020 3:04 PM CHRISTIAN EDUCATION DIRECTOR documented in this encounter Visit Diagnoses Not on filedocumented in this encounter
--- OUTSIDE RECORDS SUMMARY | 2024-07-10 23:15 | XMS_ITS | Encounter Summary ---
Author Organization [facility] Address [address] [place] [address] Phone Care Team Providers Care Mainframe Systems Engineer Name Role Phone Keyonna Armstrong APRN, CNP Primary Care Provider + Reason for Visit * Reason Comments New Patient * Consult, Test & Initiate Treatment (Routine) - Closed Specialty Diagnoses / Procedures Referred By Contgoldy t Referred To Contact Oncology Diagnoses Abnormal CBC Keyonna Armstrong APRN, BETY [address] [place] [address] Phone: tel: fax: Woody Horvath MD [address] [place] [phone] Phone: tel: fax: Referral ID Status Reason Start Date Expiration Date Visits Re quested Visits Authorized [id number] Closed 1 1 Encounter Details Date Type Department Care Team (Latest Contact Info) Description 11/13/2022 1:30 PM CDT [facility] [address] [phone] Woody Horvath MD [address] [place] [address] [phone] Lymphocytosis (Primary Dx) Social History Tobacco Use Types Packs/Day Years Used Date Smoking Tobacco: Never Smokeless Tobacco: Never Alcohol Use Standard Drinks/Week Comments Not Currently 0 (1 standard drink = 0.6 oz pur e alcohol) Comments Unknown Sex and Gender Information Value Date Recorded Sex Assigned at Not on file 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 No / Unsure 11/13/2022 1:15 PM CDT documented as of this encounter Last Filed Vital Signs Vital Sign Reading Time Taken Comments Blood Pressure 134/82 11/13/2022 1:33 PM CDT Pulse 127 11/13/2022 1:33 PM CDT Temperature 36.6 ??C (97.8 ??F) 11/13/2022 1:33 PM CD T Respiratory Rate 18 11/13/2022 1:33 PM CDT Oxygen Saturation 96% 11/13/2022 1:33 PM CDT Inhaled Oxygen Concentration - - Weight 131.4 kg (289 lb 11.2 oz) 11/13/2022 1:33 PM CDT Height 165.1 cm (5' 5) 11/13/2022 1:33 PM CDT Body Mass Index 48.21 11/13/2022 1:33 PM CDT documented in this encounter Functional Status * Question Answer Date of Assessment Author Little interest or pleasure in doing things Not at all 11/13/2022 1:31 PM CDT Claritza Perera MA Feeling down, depressed, or hopeless Not at all 11/13/2022 1:31 PM CDT Claritza Perera MA * Over the past 2 weeks, how often have you been bothered by any of the following problems? Question Answer Date of Assessment Author Patient Health Questionnaire -2 Score 0 11/13/2022 1:31 PM CDT Claritza Perera MA documented as of this encounter Progress Notes * Woody Horvath MD - 11/13/2022 1:30 PM CDT Images from the original note were not included. Patient: Veronica Evangelista Age: 52 y.o. : 1970 [facility] Encounter Date: 11/13/2022 Care Team: Current Providers PCP: Keyonna Armstrong APRN, CNP Encounter Provider: Woody Horvath MD Referring Provider: Keyonna Armstrong APRN, CNP Consulting Physician: Woody Horvath MD HISTORY OF PRESENT ILLNESS: The patient was referred to us because of consistently elevated white blood cell count mostly absolute lymphocyte count between 5000 and 8000. She had one time where her platelet count was slightly elevated but most recently it has been corrected. She is denying any recurrent infections or hospitalization. She is not an active smoker. She does not have any rash or fevers or chills or active infection. No systemic symptoms. DIAGNOSIS: Lymphocytosis. PAST TREATMENT: Not applicable. CURRENT TREATMENT: Not applicable. TREATMENT GUIDELINES: Not applicable. PROGNOSIS: Not applicable. EXPECTED RESPONSE TO TREATMENT: Not applicable. EXPECTED QUALITY OF LIFE DURING TREATMENT: Not applicable. ECOG: Not applicable. PAIN: Not applicable. PLAN FOR PAIN: Not applicable. CODE STATUS: Not applicable. END OF LIFE: Not applicable. ASSESSMENT: 1. Leukocytosis, etiology unclear. 2. Monocytosis, mild. 3. History of thrombocytosis but not on recent bloodwork. PLAN: Taking into consideration the patient's presentation with persistent absolute lymphocytosis, it is reasonable to get flow cytometry and rule out lymphoproliferative disorder. We will also get a CBC, review peripheral smear, get an LDH and act accordingly. TIME SPENT: PAST MEDICAL HISTORY, PAST SURGICAL [...] lab results shown below reviewed. Woody Horvath MD/abhishek Vitals: Vitals: 11/13/22 1333 BP: 134/82 BP Location: Left Arm BP Position: Sitting BP Cuff Size: Regular Pulse: (!) 127 Resp: 18 Temp: 97.8 ??F (36.6 ??C) TempSrc: Temporal SpO2: 96% Weight: 289 lb 11.2 oz (131.4 kg) Height: 5' 5 (1.651 m) Body surface area is 2.45 meters squared. Body mass index is 48.21 kg/m??. Pain Score: 0 - No pain Allergies: Allergies Allergen Reactions ??? Trazodone Hallucinations PMH/SgH/FH/SH: Past medical, surgical, family and social histories were reviewed at this visit. Past Medical History Positives Diagnosis Date ??? Hypertension Past Surgical History: Procedure Laterality Date ??? GALLBLADDER SURGERY ??? GASTRIC BYPASS SURGERY ??? LITHOTRIPSY Family History Problem Relation Age of Onset ??? Liver Disease Mother ??? Heart Attack Father ??? Crohn's Disease Brother Family Status Relation Name Status ??? Mother ??? Father ??? Brother (Not Specified) Social History Socioeconomic History ??? Marital status: Tobacco Use ??? Smoking status: Never ??? Smokeless tobacco: Never Vaping Use ??? Vaping Use: Never used Substance and Sexual Activity ??? Alcohol use: Not Currently ??? Drug use: Never Oncology History: Oncology History No history exists. Cancer Staging: Cancer Staging No matching staging information was found for the patient. Cumulative dose Purpose/Goal Comments Lifetime Dose Tracking No doses have been documented on this patient for the following tracked chemicals: Doxorubicin, Epirubicin, Idarubicin, Daunorubicin, Mitoxantrone, Bleomycin, Ifosfamide, Methotrexate, Cyclophosphamide, Cisplatin, Carboplatin Current Medications: Outpatient Encounter Medications as of 11/13/2022 Medication Sig Dispense Refill ??? buPROPion SR (WELLBUTRIN SR) 150 MG TABLET SR 12 HR Take 1 Tablet by mouth 2 times daily. ??? CRANBERRY PO Take by mouth. ??? hydroCHLOROthiazide 25 MG Tablet Take 1 Tablet by mouth daily. ??? lisinopril (PRINIVIL, ZESTRIL) 40 MG Tablet Take 1 Tablet by mouth daily. ??? LORazepam (ATIVAN) 1 MG Tablet ??? Magnesium 250 MG Tablet Take by mouth. ??? metFORMIN (GLUCOPHAGE) 500 MG Tablet TAKE 1 TABLET BY MOUTH EVERY MORNING AND 2 TABLETS AT BEDTIME ??? metoprolol Succinate (TOPROL-XL) 100 MG TABLET SR 24 HR Take 100 mg by mouth. ??? pantoprazole (PROTONIX) 40 MG Tablet Delayed Response ??? venlafaxine (EFFEXOR-XR) 75 MG CAPSULE SR 24 HR TAKE 1 CAPSULE BY MOUTH EVERY MORNING AND 2 CAPSULES EVERY EVENING ??? zolpidem (AMBIEN) 10 MG Tablet TAKE 1 TABLET BY MOUTH AT BEDTIME NEEDED No facility-administered encounter medications on file as of 11/13/2022. Labs: No visits with results within 7 Day(s) from this visit. Latest known visit with results is: Lab Requisition on 08/25/2020 Component Date Value Ref Range Status ??? [facility] REDITUS SARS-COV-2 RNA 08/25/2020 NOT DETECTED Final documented in this encounter Plan of Treatment Upcoming Encounters Date Type Department Care Team (Late st Contact Info) Description 03/30/2025 9:45 AM CDT Office Visit [facility] [address] [place] [address] Woody Horvath MD [facility] [place] [address] [place] [phone] documented as of this encounter Results * LACTATE DEHYDROGENASE (LD) (11/13/2022 2:11 PM CDT) LDH 166 140 - 271 U/L [facility] Blood 11/13/2022 2:11 PM CDT Narrative [facility] - 11/13/2022 3:30 PM CDT Release to patient->Immediate Woody Horvath MD CHEMISTRY ORDERABLES Final R esult [facility] [address] [place] [address], * (ABNORMAL) COMPLETE BLOOD COUNT (CBC) WITH DIFF (11/13/2022 2:11 PM CDT) WBC 12.5(H) 4.0 - 10.0 10*3/uL [facility] HGB 14.2 11.2 - 15.7 g/dL [facility] HCT 44.2 34.1 - 44.9 % [facility] PLT 333 163 - 369 10*3/uL [facility] MPV 9.0(L) 9.4 - 12.4 fL [facility] RBC 4.53 3.93 - 5.22 10*6/uL [facility] MCV 98(H) 79 - 95 fL [facility] MCH 31.3 25.6 - 32.2 pg [facility] MCHC 32.1(L) 32.2 - 36.5 g/dL [facility] RDW 14.4 11.6 - 14.4 % [facility] Absolute Neutrophil Count 5,603 cells/uL [facility] Absolute Seg Count 5,603 1,440 - 6,600 cells/uL [facility] Absolute Lymph Count 5,727(H) 760 - 4,000 cells/uL [facility] Absolute Kaufman Count 747 160 - 1,200 cells/uL [facility] Absolute Eos Count 374(H) 0 - 300 cells/uL [facility] Segmented Neutrophils 45 36 - 66 % [facility] Lymphocytes 46(H) 19 - 40 % [facility] Monocytes 6 4 - 12 % [facility] Eosinophils 3 0 - 3 % [facility] WBC Estimate High [facility] Platelet Estimate Normal [facility] RBC Morphology Abnormal [facility] Macrocytosis 1+ [facility] Blood 11/13/2022 2:11 PM CDT Narrative [facility] - 11/14/2022 8:20 AM CDT Release to patient->Immediate us Woody Horvath MD HEMATOLOGY ORDERABLES Final Result Performing Organization Address City/State/[facility] Co de Phone Number [facility] [address] [place] [address], documented in this encounter Visit Diagnoses Diagnosis Lymphocytosis- Primary Lymphocytosis (symptomatic) Lymphocytosis Lymphocytosis (symptomatic) documented in this encounter Care Teams Mainframe Systems Engineer Relationship Specialty Start Date End Date Keyonna Armstrong APRN, EARTHMOVING LABOURER [address] [place] [phone] PCP - General Family Medicine 10/19/22 documented as of this encounter
--- OUTSIDE RECORDS SUMMARY | 2024-07-10 23:15 | XMS_ITS | Encounter Summary ---
Author Organization [facility] Address [address] [place] [id number] Care Team Providers Care Temperature Regulator Name Role Phone Unavailable Primary Care Provider Unavailabl e Encounter Details Date Type Department Care Team (Late st Contact Info) Description 06/12/2020 Lab Requisition [facility] Community Testing [facility] [address] [place] [address] [place] [address] [place] [address] Social History Tobacco Use Types Packs/Day Years Used Date Smoking Tobacco: Never Assessed Comments Unknown Sex and Gender Information Value Date Recorded Sex Assigned at Not on file 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 Sex Female 1:39 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 Gender Identity Not on file Sexual Orientation Not on file documented as of this encounter Plan of Treatment Upcoming Encounters Date Type Department Care Team (Late st Contact Info) Description 03/30/2025 9:45 AM CDT [facility] [address] [phone] Woody Horvath MD [address] [phone] documented as of this encounter Procedures Procedure Name Priority Date/Time Associated Diagnosis Comments SARS-COV-2 PCR [facility] ONLY Routine 06/12/2020 2:47 PM 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 documented in this encounter Visit Diagnoses Not on filedocumented in this encounter
--- OUTSIDE RECORDS SUMMARY | 2024-07-10 23:15 | XMS_ITS | Encounter Summary ---
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 No / Unsure 11/13/2022 1:15 PM CDT documented as of this encounter Functional Status [...] Perera MA documented as of this encounter Plan of Treatment Upcoming Encounters Date Type Department Care Team (Late st Contact Info) Description 03/30/2025 9:45 AM CDT Office Visit [facility] [address] [place] [phone] Woody Horvath MD [address] [address] documented as of this encounter Visit Diagnoses Not on filedocumented in this encounter Care Teams Embedded Developer Relationship Specialty Start Date End Date Keyonna Armstrong APRN, POLE SANDER OPERATOR [address] [place] [phone] PCP - General Family Medicine 10/19/22 documented as of this encounter
--- OUTSIDE RECORDS SUMMARY | 2024-07-10 23:15 | XMS_ITS | Encounter Summary ---
Author Organization [facility] Address [address] [place] [address] Care Team Providers Care Burnishing Machine Operator Name Role Phone Unavailable Primary Care Provider Unavailabl e Encounter Details Date Type Department Care Team (Late st Contact Info) Description 08/25/2020 Lab Requisition [facility] Community Testing [facility] [address] [place] [address] Clark Lamas MD [address] [place] [address] [address] [place], [place] [phone] Social History Tobacco Use Types Packs/Day Years Used Date Smoking Tobacco: Never Assessed Comments Unknown Sex and Gender Information Value Date Recorded Sex Assigned at Not on file Legal Sex Female 1:39 PM BRAND RECORDER Gender Identity Not on file Sexual Orientation Not on file documented as of this encounter Plan of Treatment Upcoming Encounters Date Type Department Care Team (Late st Contact Info) Description 03/30/2025 9:45 AM CDT [facility] Visit [facility] [address] [phone] Woody Horvath MD [facility] [address] [place], [place] [phone] documented as of this encounter Procedures Procedure Name Priority Date/Time Associated Diagnosis Comments SARS-COV-2 PCR [facility] ONLY Routine 08/25/2020 1:50 PM BRAND RECORDER documented in this encounter Visit Diagnoses Not on filedocumented in this encounter
--- OUTSIDE RECORDS SUMMARY | 2024-07-10 23:15 | XMS_ITS | Encounter Summary ---
Author Organization [facility] Address [address] [place] [address] Phone Care Team Providers Care Stain Dipper Name Role Phone Keyonna Armstrong APRN, BETY Primary Care Provider + Reason for Visit * Reason Comments Follow-up Encounter Details Date Type Department Care Team (Latest Contact Info) Description 12/21/2022 1:15 PM CDT Office Visit [facility] [address] [place] [address] Cindy Childress, SPECTROGRAPHIC ANALYST, WEIGHT LOSS CONSULTANT [address] [place] [address] Lymphocytosis (Primary Dx) Social History Tobacco Use Types Packs/Day Years Used Date Smoking Tobacco: Never Smokeless Tobacco: Never Alcohol Use Standard Drinks/Week Comments Not Currently 0 (1 standard drink = 0.6 oz pur e alcohol) Comments Unknown Sex and Gender Information Value Date Recorded Sex Assigned at Not on file Legal Sex Female 1:39 PM COMMERCIAL DESIGNER Gender Identity Not on file Sexual Orientation Not on file COVID-19 Exposure Response Date Recorded In the last 10 days, have yo u been in contact with someone who was confirmed or suspected to have Coronavirus/COVID-19? No / Unsure 12/21/2022 1:39 PM CDT documented as of this encounter Last Filed Vital Signs Vital Sign Reading Time Taken Comments Blood Pressure 140/100 12/21/2022 1:42 PM CDT Pulse 133 12/21/2022 1:42 PM CDT Temperature 36.6 ??C (97.8 ??F) 12/21/2022 1:42 PM CD T Respiratory Rate 18 12/21/2022 1:42 PM CDT Oxygen Saturation 97% 12/21/2022 1:42 PM CDT Inhaled Oxygen Concentration - - Weight 127 kg (280 lb) 12/21/2022 1:42 PM CDT Height 165.1 cm (5' 5) 12/21/2022 1:42 PM CDT Body Mass Index 46.59 12/21/2022 1:42 PM CDT documented in this encounter Progress Notes * Cindy Childress APRN, CNP - 12/21/2022 1:15 PM CDT Images from the original note were not included. Patient: Veronica Evangelista Age: 52 y.o. : 1970 [facility] Encounter Date: 12/21/2022 Care Team: Current Providers PCP: Keyonna Armstrong APRN, CNP Encounter Provider: Cindy Childress APRN, CNP Referring Provider: Keyonna Armstrong APRN, CNP Nurse Practitioner: Cindy Childress APRN, CNP HISTORY OF PRESENT ILLNESS: Veronica returns for follow-up on her lymphocytosis. We did further work-up which was normal. Still with mildly elevated WBC and lymphocyte count. She denies any fevers, chills, night sweats, recurrent infections. DIAGNOSIS: Lymphocytosis. PAST TREATMENT: Not applicable. CURRENT [...] but not on recent bloodwork. PLAN: 1. Discussed labs with patient, have ruled out lymphoproliferative disorder at this point. 2. Will recheck CBC and LDH again in 4-6 months. 3. Call in interim with questions, problems or concerns. TIME SPENT: PAST MEDICAL HISTORY, PAST SURGICAL [...] NOTES: All lab results shown below reviewed. Cindy Childress, BONE CHAR KILN TENDER-C Woody Horvath MD Vitals: Vitals: 12/21/22 1342 BP: (!) 140/100 BP Location: Left Arm BP Position: Sitting BP Cuff Size: Regular Pulse: (!) 133 Resp: 18 Temp: 97.8 ??F (36.6 ??C) TempSrc: Temporal SpO2: 97% Weight: 280 lb (127 kg) Height: 5' 5 (1.651 m) Body surface area is 2.41 meters squared. Body mass index is 46.59 kg/m??. Pain Score: 0 - No pain [...] Current Medications: Outpatient Encounter Medications as of 12/21/2022 Medication Sig Dispense Refill ??? amLODIPine (NORVASC) 5 MG Tablet Take 5 mg by mouth. ??? buPROPion SR (WELLBUTRIN SR) 150 MG TABLET SR 12 HR Take 150 mg by mouth. ??? [DISCONTINUED] buPROPion SR (WELLBUTRIN SR) 150 MG TABLET SR 12 HR Take 1 Tablet by mouth 2 times daily. ??? Cholecalciferol 25 mcg Capsule Vitamin D3 25 mcg (1,000 unit) capsule ??? CRANBERRY PO Take by mouth. ??? gabapentin (NEURONTIN) 100 MG Capsule TAKE 1 CAPSULE BY MOUTH THREE TIMES A DAY ??? hydroCHLOROthiazide 25 MG Tablet Take 1 Tablet by mouth daily. ??? lisinopril (PRINIVIL, ZESTRIL) 20 MG Tablet lisinopril 20 mg tablet Take 1 tablet every day by oral route. ??? [DISCONTINUED] lisinopril (PRINIVIL, ZESTRIL) 40 MG Tablet Take 1 Tablet by mouth daily. ??? LORazepam (ATIVAN) 0.5 MG Tablet lorazepam 0.5 mg tablet 3 tab po daily anxiety ??? [DISCONTINUED] LORazepam (ATIVAN) 1 MG Tablet ??? Magnesium 250 MG Tablet Take by mouth. ??? metFORMIN (GLUCOPHAGE) 500 MG Tablet TAKE 1 TABLET BY MOUTH EVERY MORNING AND 2 TABLETS AT BEDTIME ??? metoprolol Succinate (TOPROL-XL) 100 MG TABLET SR 24 HR Take 100 mg by mouth. ??? mirtazapine (REMERON) 15 MG Tablet Take 15 mg by mouth. ??? multi-vitamins Tablet Take 1 Tablet by mouth every morning. ??? pantoprazole (PROTONIX) 20 MG Tablet Delayed Response TAKE 1 TABLET BY MOUTH DAILY. PATIENT MUST BE SEEN FOR FURTHER REFILLS ??? [DISCONTINUED] pantoprazole (PROTONIX) 40 MG Tablet Delayed Response ??? venlafaxine (EFFEXOR-XR) 75 MG CAPSULE SR 24 HR TAKE 1 CAPSULE BY MOUTH EVERY MORNING AND 2 CAPSULES EVERY EVENING ??? zolpidem (AMBIEN) 10 MG Tablet TAKE 1 TABLET BY MOUTH AT BEDTIME NEEDED No facility-administered encounter medications on file as of 12/21/2022. Labs: No visits with results within 7 Day(s) from this visit. Latest known visit with results is: Lab on 11/13/2022 Component Date Value Ref Range Status ??? LDH 11/13/2022 166 140 - 271 U/L Final ??? WBC 11/13/2022 12.5 (H) 4.0 - 10.0 10*3/uL Final ??? HGB 11/13/2022 14.2 11.2 - 15.7 g/dL Final ??? HCT 11/13/2022 44.2 34.1 - 44.9 % Final ??? PLT 11/13/2022 333 163 - 369 10*3/uL Final ??? MPV 11/13/2022 9.0 (L) 9.4 - 12.4 fL Final ??? RBC 11/13/2022 4.53 3.93 - 5.22 10*6/uL Final ??? MCV 11/13/2022 98 (H) 79 - 95 fL Final ??? MCH 11/13/2022 31.3 25.6 - 32.2 pg Final ??? MCHC 11/13/2022 32.1 (L) 32.2 - 36.5 g/dL Final ??? RDW 11/13/2022 14.4 11.6 - 14.4 % Final ??? Absolute Neutrophil Count 11/13/2022 5,603 cells/uL Final ??? Absolute Seg Count 11/13/2022 5,603 1,440 - 6,600 cells/uL Final ??? Absolute Lymph Count 11/13/2022 5,727 (H) 760 - 4,000 cells/uL Final ??? Absolute [place] Count 11/13/2022 747 160 - 1,200 cells/uL Final ??? Absolute Eos Count 11/13/2022 374 (H) 0 - 300 cells/uL Final ??? Segmented Neutrophils 11/13/2022 45 36 - 66 % Final ??? Lymphocytes 11/13/2022 46 (H) 19 - 40 % Final ??? Monocytes 11/13/2022 6 4 - 12 % Final ??? Eosinophils 11/13/2022 3 0 - 3 % Final ??? WBC Estimate 11/13/2022 High Final ??? Platelet Estimate 11/13/2022 Normal Final ??? RBC Morphology 11/13/2022 Abnormal Final ??? Macrocytosis 11/13/2022 1+ Final ??? ACUTE LEUKEMIA FLOW PC 11/13/2022 Normal Final Comment: INTERPRETATION PERIPHERAL BLOOD: - Flow cytometric analysis does not show significant numbers of circulating blasts or an abnormal lymphoid or myeloid population. - See comments. COMMENT Analysis suggests a reactive lymphocytosis. Correlation with other clinical and laboratory information is recommended. CLINICAL INFORMATION: Dx: leukocytosis DIAGNOSIS CODE(S): D72.820 SPECIMEN COMMENT: 1 EDTA, 1 HEPARIN. DX- LYMPHOCYTOSIS. IMMUNOPHENTYPIC ANALYSIS: No Abnormal Cells Present Viability 7AAD: 99.30% There is a mixed population of neutrophils, monocytes, and lymphocytes. There are no circulating blasts identified. Neutrophils (49%) do not display an aberrant phenotype. The orthogonal side scatter is normal. No significant number of CD56+ or CD10-/CD16- neutrophils is noted. Monocytes (6%) appear mature (CD14+/CD64+) and do not display overt phenotypic atypia. B-cells (4%) are polytypic. T-cells (36%) show no deletion or abnormal dim expression of ramos-T-c ell antigens on significant subset of cells. The CD7- T-cells are within normal range (<15%). The CD4:CD8 ratio is (0.8:1). The T-LGL cells comprise 11%. ??? CD2 11/13/2022 40.13 % Final Thymic and peripheral T-cells, NK cells ??? CD3 11/13/2022 36.21 % Final Ramos T-cell antigen, TCR-epsilon subunit ??? CD4 11/13/2022 17.25 % Final [place] T-cells, thymocyte subset, monocytes ??? CD5 11/13/2022 35.03 % Final Ramos T-cells, mature B-cell subset (B1a cells) ??? CD7 11/13/2022 28.85 % Final Thymic and peripheral T-cells, NK cells ??? CD8 11/13/2022 20.68 % Final Suppressor T-cells, NK cells, thymocyte subset ??? CD56 11/13/2022 4.07 % Final T-cell subset, NK cells ??? CD57 11/13/2022 12.65 % Final T-cell subset, NK cells ??? CD19 11/13/2022 3.65 % Final Ramos B-cell antigen ??? CD20 11/13/2022 4.00 % Final Ramos B-cell antigen ??? CD22 11/13/2022 3.37 % Final Ramos B-cell antigen ??? CD10 11/13/2022 0.04 % Final Follicle center B-cells, BRYCE, myeloid subset ??? CD11c 11/13/2022 4.72 % Final Monocytes, myeloid subset, hairy cell leukemia ??? CD23 11/13/2022 0.68 % Final Mature B-cells, CLL ??? FMC-7 11/13/2022 1.65 % Final B-Cell associated antigen in B-Cell subset ??? [place] 11/13/2022 22.1 % Final [place] Ig light chain, B-cells, plasma cells ??? Lambda 11/13/2022 1.48 % Final Lambda Ig light chain, B-cells, plasma cells ??? CD11b 11/13/2022 52.47 % Final Mature myeloid cells, NK cells and T-Cell subset ??? CD13 11/13/2022 54.18 % Final Myeloid cells, monocytes ??? CD14 11/13/2022 6.24 % Final Mature monocytes ??? CD16 11/13/2022 48.90 % Final Granulocytes, NK cells ??? CD33 11/13/2022 15.74 % Final Myeloid cells, monocytes ??? CD64 11/13/2022 6.00 % Final Monocytes ??? CD34 11/13/2022 0.06 % Final Precursor cells ??? CD38 11/13/2022 11.06 % Final Activated T, B, myeloid cells, B-cell subset ??? CD117 11/13/2022 0.46 % Final Stem cell receptor (c-kit), myeloid cells ??? HLA-DR 11/13/2022 11.66 % Final MHC Class II Ag, B-cells, activated T-cells, monocytes ??? CD45 11/13/2022 98.65 % Final Comment: Leukocyte common antigen DISCLAIMER: The technical component of Flow Cytometry was performed at [facility] [address] [address]. These tests were developed and their performance characteristics were determined by [facility]. They may not be cleared or approved by the U.S. Food and Drug Administration. The FDA has determined that such clearance or approval is not necessary. These results may be used for clinical, investigational or for research purposes, and should be interpreted with other relevant clinicopathologic data. ELECTRONIC SIGNATURE: Lele Perez D.O. Hematopathologist, ex. [id number] This report was electronically signed. Cosigned by Woody Horvath MD at 12/21/2022 3:40 PM CDT documented in this encounter Plan of Treatment Upcoming Encounters Date Type Department Care Team (Late st Contact Info) Description 03/30/2025 9:45 AM CDT Office Visit [facility] [address] [place] [address] Woody Horvath MD [facility] [place] [address] documented as of this encounter Results * LACTATE DEHYDROGENASE (LD) (07/26/2023 1:47 PM COMMERCIAL DESIGNER) LDH 164 140 - 271 U/L [facility] CATTLE FARMER [facility] Blood 07/26/2023 1:47 PM COMMERCIAL DESIGNER Narrative CANCER DAIRY CATTLE FARMER [facility] - 07/26/2023 2:36 PM COMMERCIAL DESIGNER Release to patient->Immediate Cindy Childress SPECTROGRAPHIC ANALYST, WEIGHT LOSS CONSULTANT CHEMISTRY ORDERABLES Final Result CANCER DAIRY CATTLE FARMER [facility] [place] [address], * (ABNORMAL) COMPLETE BLOOD COUNT (CBC) WITH DIFF (07/26/2023 1:47 PM COMMERCIAL DESIGNER) WBC 10.8(H) 4.0 - 10.0 10*3/uL CANCER DAIRY CATTLE FARMER [facility] HGB 14.5 11.2 - 15.7 g/dL [facility] HCT 45.2(H) 34.1 - 44.9 % CANCER DAIRY CATTLE FARMER [facility] PLT 358 163 - 369 10*3/uL CANCER DAIRY CATTLE FARMER [facility] MPV 8.9(L) 9.4 - 12.4 fL CANCER DAIRY CATTLE FARMER [facility] RBC 4.44 3.93 - 5.22 10*6/uL CANCER DAIRY CATTLE FARMER [facility] MCV 102(H) 79 - 95 fL CANCER DA[facility]Y CATTLE FARMER [facility] MCH 32.7(H) 25.6 - 32.2 pg CANCER DAIRY CATTLE FARMER [facility] MCHC 32.1(L) 32.2 - 36.5 g/dL CANCER DAIRY CATTLE FARMER [facility] RDW 15.6(H) 11.6 - 14.4 % CANCER DAIRY CATTLE FARMER [facility] Absolute Neutrophil Count 5,600 cells/uL [facility] Absolute Seg Count 5,600 1,440 - 6,600 cells/uL CANCER DAIRY CATTLE FARMER [facility] Absolute Lymph Count 4,523(H) 760 - 4,000 cells/uL CANCER DAIRY CATTLE FARMER [facility] Absolute [place] Count 646 160 - 1,200 cells/uL CANCER DAIRY CATTLE FARMER [facility] Segmented Neutrophils 52 36 - 66 % CANCER DAIRY CATTLE FARMER [facility] Lymphocytes 42(H) 19 - 40 % [facility] C ENTER [facility] Monocytes 6 4 - 12 % CANCER [facility] WBC Estimate High CANCER DAIRY CATTLE FARMER [facility] Platelet Estimate Normal CANCER DAIRY CATTLE FARMER [facility] RBC Morphology Abnormal CANCE R DAIRY CATTLE FARMER [facility] Macrocytosis 1+ CANCER DAIRY CATTLE FARMER [facility] Anisocytosis 1+ CANCER DAIRY CATTLE FARMER [facility] Blood 07/26/2023 1:47 PM COMMERCIAL DESIGNER Narrative CANCER DAIRY CATTLE FARMER [facility] - 07/26/2023 4:05 PM COMMERCIAL DESIGNER Release to patient->Immediate Cindy Childress APRN, WEIGHT LOSS CONSULTANT HEMATOLOGY ORDERABLES Final Result CANCER DAIRY CATTLE FARMER [facility] [place] [address], documented in this encounter Visit Diagnoses Diagnosis Lymphocytosis- Primary Lymphocytosis (symptomatic) Lymphocytosis Lymphocytosis (symptomatic) documented in this encounter Care Teams Stain Dipper Relationship Specialty Start Date End Date Keyonna Armstrong APRN, WEIGHT LOSS CONSULTANT [address] [place] [address] PCP - General Family Medicine 10/19/22 documented as of this encounter
--- OUTSIDE RECORDS SUMMARY | 2024-07-10 23:15 | XMS_ITS | Encounter Summary ---
Author Organization [facility] Address [address] [place] [address] Phone Care Team Providers Care Draw End Hand Name Role Phone Keyonna Armstrong APRN, CNP Primary Care Provider + Reason for Visit * Reason Comments Follow-up Encounter Details Date Type Department Care Team (Latest Contact Info) Description 07/26/2023 2:00 PM CANDY FORMING MACHINE OPERATOR Office Visit [facility] [address] [address] Woody Horvath MD [address] [address] Lymphocytosis (Primary Dx) Social History Tobacco Use Types Packs/Day Years Used Date Smoking Tobacco: Never Smokeless Tobacco: Never Tobacco Cessation:Counseling Given: Not Answered Alcohol Use Standard Drinks/Week Comments Not Currently 0 (1 standard drink = 0.6 oz pur e alcohol) Comments Unknown Sex and Gender Information Value Date Recorded Sex Assigned at Not on file Legal Sex Female 1:39 PM CANDY FORMING MACHINE OPERATOR Gender Identity Not on file Sexual Orientation Not on file documented as of this encounter Last Filed Vital Signs Vital Sign Reading Time Taken Comments Blood Pressure 138/88 07/26/2023 1:53 PM CANDY FORMING MACHINE OPERATOR Pulse 97 07/26/2023 1:53 PM CANDY FORMING MACHINE OPERATOR Temperature 36.9 ??C (98.5 ??F) 07/26/2023 1:53 PM CS T Respiratory Rate 18 07/26/2023 1:53 PM CANDY FORMING MACHINE OPERATOR Oxygen Saturation 99% 07/26/2023 1:53 PM CANDY FORMING MACHINE OPERATOR Inhaled Oxygen Concentration - - Weight 127.2 kg (280 lb 8 oz) 07/26/2023 1:53 PM CANDY FORMING MACHINE OPERATOR Height 165.1 cm (5' 5) 07/26/2023 1:53 PM CANDY FORMING MACHINE OPERATOR Body Mass Index 46.68 07/26/2023 1:53 PM CANDY FORMING MACHINE OPERATOR documented in this encounter Functional Status * Question Answer Date of Assessment Author Little interest or pleasure in doing things Not at all 07/26/2023 1:53 PM CANDY FORMING MACHINE OPERATOR Ozzie Salamanca CMA Feeling down, depressed, or hopeless Not at all 07/26/2023 1:53 PM CANDY FORMING MACHINE OPERATOR Sasha Salamanca CMA * Over the past 2 weeks, how often have you been bothered by any of the following problems? Question Answer Date of Assessment Author Patient Health Questionnaire-2 Score 0 07/26/2023 1:53 PM CANDY FORMING MACHINE OPERATOR Erin Salamanca CMA documented as of this encounter Progress Notes * Woody Horvath MD - 07/26/2023 2:00 PM CST Images from the original note were not included. Patient: Veronica Evangelista Age: 52 y.o. : 1970 [facility] En[facility] Date: 07/26/2023 Care Team: Current Providers PCP: Keyonna Armstrong APRN, CNP Encounter Provider: Woody Horvath MD Referring Provider: Keyonna Armstrong APRN, CNP Consulting Physician: Woody Horvath MD HISTORY OF PRESENT ILLNESS: Initial workup for lymphoproliferative disorder has been negative. The patient had flow cytometry that has been negative. She has elevated absolute lymphocyte count and absolute neutrophil count minimally elevated. She has an ovarian cyst that has been monitored closely.She follows with Gynecology and primary care physician closely as well. No new symptoms. DIAGNOSIS: Lymphocytosis. PAST TREATMENT: Not applicable. [...] thrombocytosis but not on recent bloodwork. PLAN: Repeat CBC and LDH. Discussed with the patient options of monitoring versus bone marrow aspiration and biopsy and elected monitoring which is reasonable at this point based on the initial workup. TIME SPENT: PAST MEDICAL HISTORY, PAST SURGICAL [...] lab results shown below reviewed. Woody Horvath MD/[facility] Vitals: Vitals: 07/26/23 1353 BP: 138/88 BP Location: Left Arm BP Position: Sitting BP Cuff Size: Regular Pulse: 97 Resp: 18 Temp: 98.5 ??F (36.9 ??C) TempSrc: Temporal SpO2: 99% Weight: 280 lb 8 oz (127.2 kg) Height: 5' 5 (1.651 m) Body surface area is 2.42 meters squared. Body mass index is 46.68 kg/m??. Pain Score: 0 - No pain [...] Current Medications: Outpatient Encounter Medications as of 07/26/2023 Medication Sig Dispense Refill ??? amLODIPine (NORVASC) 5 MG Tablet Take 5 mg by mouth. ??? buPROPion SR (WELLBUTRIN SR) 150 MG TABLET SR 12 HR Take 150 mg by mouth. ??? Cholecalciferol 25 mcg Capsule Vitamin D3 [...] tablet every day by oral route. ??? LORazepam (ATIVAN) 0.5 MG Tablet lorazepam 0.5 mg tablet 3 tab po daily anxiety ??? Magnesium 250 MG Tablet Take by [...] MUST BE SEEN FOR FURTHER REFILLS ??? tirzepatide (Mounjaro) 5 MG/0.5ML Solution Pen-injector 5 mg by Subcutaneous route. ??? venlafaxine (EFFEXOR-XR) 75 MG CAPSULE SR 24 HR TAKE 1 CAPSULE BY MOUTH EVERY MORNING AND 2 CAPSULES EVERY EVENING ??? zolpidem (AMBIEN) 10 MG Tablet TAKE 1 TABLET BY MOUTH AT BEDTIME NEEDED No facility-administered encounter medications on file as of 07/26/2023. Labs: No visits with results within 7 [...] 760 - 4,000 cells/uL Final ??? Absolute [place] Count 11/13/2022 747 160 - 1,200 cells/uL [...] subunit ??? CD4 11/13/2022 17.25 % Final [place] T-cells, thymocyte subset, monocytes ??? CD5 11/13/2022 [...] B-Cell associated antigen in B-Cell subset ??? [place] 11/13/2022 22.1 % Final [place] Ig light chain, B-cells, plasma cells ??? [...] was performed at [facility], [address] [address]. These tests were developed and their performance characteristics were determined by [facility]. They may not be cleared or approved by the U.S. Food and Drug Administration. The FDA has determined that such clearance or approval is not necessary. These results may be used for clinical, investigational or for research purposes, and should be interpreted with other relevant clinicopathologic data. ELECTRONIC SIGNATURE: Lele Perez D.O. Hematopathologist, ex. [id number] This report was electronically signed. Y FORMING MACHINE OPERATOR Y FORMING MACHINE OPERATOR documented in this encounter Plan of Treatment Upcoming Encounters Date Type Department Care Team (Late st Contact Info) Description 03/30/2025 9:45 AM CDT Office Visit [facility] [address] [place] [phone] Woody Horvath MD [address] [place], [place] [address] documented as of this encounter Visit Diagnoses Diagnosis Lymphocytosis- Primary Lymphocytosis (symptomatic) documented in this encounter Care Teams Draw End Hand Relationship Specialty Start Date End Date Kyeonna Armstrong, UTILIZATION COORDINATOR, LOAF COUNTER [address] [place] [address] PCP - General Family Medicine 10/19/22 documented as of this encounter
--- OUTSIDE RECORDS SUMMARY | 2024-07-10 23:15 | XMS_ITS | Encounter Summary ---
Author Organization [facility] Address [address] [place] [address] Care Team Providers Care Shipping Associate Name Role Phone Unavailable Primary Care Provider Unavailabl e Encounter Details Date Type Department Care Team (Late st Contact Info) Description 08/25/2020 2:00 PM FREIGHT RATE SPECIALIST Rapid Evaluation [place] [facility] Community Testing [facility] [address] [place] [address] Social History Tobacco Use Types Packs/Day Years Used Date Smoking Tobacco: Never Assessed Comments Unknown Sex and Gender Information Value Date Recorded Sex Assigned at Not on file Legal Sex Female 1:39 PM FREIGHT RATE SPECIALIST Gender Identity Not on file Sexual Orientation Not on file documented as of this encounter Plan of Treatment Upcoming Encounters Date Type Department Care Team (Late st Contact Info) Description 03/30/2025 9:45 AM CDT Office Visit [facility] [address] [address] Woody Horvath MD [address] [place] [address] documented as of this encounter Visit Diagnoses Not on filedocumented in this encounter
--- OUTSIDE RECORDS SUMMARY | 2024-07-10 23:15 | XMS_ITS | Encounter Summary ---
Author Organization [facility] Address [address] [place] [address] Phone Care Team Providers Care Brakes Inspector Name Role Phone Keyonna Armstrong APRN, BETY Primary Care Provider + Encounter Details Date Type Department Care Team (Late st Contact Info) Description 11/13/2022 2:05 PM CDT Lab [facility] [address] [phone] Lab, [facility] [place] Lymphocytosis Social History Tobacco Use Types Packs/Day Years Used Date Smoking Tobacco: Never Smokeless Tobacco: Never Alcohol Use Standard Drinks/Week Comments Not Currently 0 (1 standard drink = 0.6 oz pur e alcohol) Comments Unknown Sex and Gender Information Value Date Recorded Sex Assigned at Not on file 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 Gender Identity Not on file Sexual Orientation [...] CDT Office Visit [facility] [address] [phone] Woody Horvath MD [address] [place], [place] [id number] documented as of this encounter Procedures Procedure Name Priority Date/Time Associated Diagnosis Comments CCS-ACUTE LEUKEMIA PNL ([place]) [place] B504-2 Routine 11/13/2022 2:11 PM CDT LACTATE DEHYDROGENASE (LD) Routine 11/13/2022 2:11 PM CDT Lymphocytosis COMPLETE BLOOD COUNT (CBC) WITH DIFF Routine 11/13/2022 2:11 PM CDT Lymphocytosis documented in this encounter Results * CCS-ACUTE LEUKEMIA PNL ([place]) [place] B504-2 (11/13/2022 2:11 PM CDT) [facility] ACUTE LEUKEMIA FLOW PC Normal [facility] Comment: INTERPRETATION PERIPHERAL BLOOD: - Flow cytometric analysis does not show significant numbers of circulating blasts or an abnormal lymphoid or myeloid population. - See comments. COMMENT Analysis suggests a reactive lymphocytosis. ??Correlation with other clinical and laboratory information is recommended. CLINICAL INFORMATION: Dx: leukocytosis DIAGNOSIS CODE(S): D72.820 SPECIMEN COMMENT: 1 EDTA, 1 HEPARIN. DX- LYMPHOCYTOSIS. IMMUNOPHENTYPIC ANALYSIS: No Abnormal Cells Present ??Viability 7AAD: 99.30% There is a mixed population [...] no deletion or abnormal dim expression of ramos-T-cell antigens on significant subset of cells. The CD7- T-cells are within normal range (<15%). The CD4:CD8 ratio is (0.8:1). The T-LGL cells comprise 11%. CD2 40.13 % [facility] Comment:Thymic and periphera l T-cells, NK cells CD3 36.21 % [facility] Comment:Ramos T-cell antigen, TCR-epsilon subunit CD4 17.25 % [facility] Comment:[place] T-cells, thym ocyte subset, monocytes CD5 35.03 % [facility] Comment:Ramos T-cells, mature B-cell subset (B1a cells) CD7 28.85 % [facility] Comment:Thymic and periphera l T-cells, NK cells CD8 20.68 % [facility] Comment:Suppressor T-cells, NK cells, thymocyte subset CD56 4.07 % [facility] Comment:T-cell subset, NK ce lls CD57 12.65 % [facility] Comment:T-cell subset, NK ce lls CD19 3.65 % [facility] Comment:Ramos B-cell antigen CD20 4.00 % [facility] Comment:Ramos B-cell antigen CD22 3.37 % [facility] Comment:Ramos B-cell antigen CD10 0.04 % [facility] Comment:Follicle center B-ce lls, BRYCE, myeloid subset CD11c 4.72 % [facility] Comment:Monocytes, myeloid s ubset, hairy cell leukemia CD23 0.68 % [facility] Comment:Mature B-cells, CLL [facility]-7 1.65 % [facility] Comment:B-Cell associated an tigen in B-Cell subset Friona 22.1 % [facility] Comment:Friona Ig light chain , B-cells, plasma cells Lambda 1.48 % [facility] Comment:Lambda Ig light [place] n, B-cells, plasma cells CD11b 52.47 % [facility] Comment:Mature myeloid cells , NK cells and T-Cell subset CD13 54.18 % [facility] Comment:Myeloid cells, monoc ytes CD14 6.24 % [facility] Comment:Mature monocytes CD16 48.90 % [facility] Comment:Granulocytes, NK faina ls CD33 15.74 % [facility] Comment:Myeloid cells, monoc ytes CD64 6.00 % [facility] Comment:Monocytes CD34 0.06 % [facility] Comment:Precursor cells CD38 11.06 % [facility] Comment:Activated T, B, myel oid cells, B-cell subset CD117 0.46 % [facility] Comment:Stem cell receptor ( c-kit), myeloid cells HLA-DR 11.66 % [facility] Comment:MHC Class II Ag, B-c ells, activated T-cells, monocytes CD45 98.65 % [facility] Comment: Leukocyte common antigen DISCLAIMER: The technical component of Flow Cytometry was performed at [facility] [place] [address] ??[address]. ??These tests were developed and their performance characteristics were determined by [facility]. ??They may not be cleared or approved by the U.S. Food and Drug Administration. ??The FDA has determined that such clearance or approval is not necessary. ?? These results may be used for clinical, investigational or for research purposes, and should be interpreted with other relevant clinicopathologic data. ELECTRONIC SIGNATURE: Lele Perez D.O. Hematopathologist, ex. [phone] This report was electronically signed. 11/13/2022 2:11 PM CDT Narrative [facility] - 11/15/2022 12:05 PM CDT Testing performed at: [employer]. [address] [place] [address], Odd Job Laborer: ??Dr. Jalen Hoang M.D.; [employer] Accn#:[id number] us Woody Horvath MD PATHOLOGY/CYTOLOGY ORDERABLE S Final Result [facility] * (ABNORMAL) COMPLETE BLOOD COUNT (CBC) WITH DIFF (11/13/2022 2:11 PM CDT) WBC 12.5(H) 4.0 - 10.0 10*3/uL [facility] HGB 14.2 11.2 - 15.7 g/dL [facility] HCT 44.2 34.1 - 44.9 % [facility] PLT 333 163 - 369 10*3/uL [facility] MPV 9.0(L) 9.4 - 12.4 fL [facility] RBC 4.53 3.93 - 5.22 10*6/uL [facility] MCV 98(H) 79 - 95 fL [facility] MCH 31.3 25.6 - 32.2 pg [facility] MCHC 32.1(L) 32.2 - 36.5 g/dL [facility] RDW 14.4 11.6 - 14.4 % [facility] Absolute Neutrophil Count 5,603 cells/uL [facility] Absolute Seg Count 5,603 1,440 - 6,600 cells/uL [facility] Absolute Lymph Count 5,727(H) 760 - 4,000 cells/uL [facility] Absolute Barnes Count 747 160 - 1,200 cells/uL [facility] Absolute Eos Count 374(H) 0 - 300 cells/uL [facility] Segmented Neutrophils 45 36 - 66 % [facility] Lymphocytes 46(H) 19 - 40 % [facility] Monocytes 6 4 - 12 % [facility] Eosinophils 3 0 - 3 % [facility] WBC Estimate High [facility] Platelet Estimate Normal [facility] RBC Morphology Abnormal [facility] Macrocytosis 1+ [facility] Blood 11/13/2022 2:11 PM CDT Narrative [facility] - 11/14/2022 8:20 AM CDT Release to patient->Immediate us Woody Horvath MD HEMATOLOGY ORDERABLES Final Result [facility] [address] [place] [address], * LACTATE DEHYDROGENASE (LD) (11/13/2022 2:11 PM CDT) LDH 166 140 - 271 U/L [facility] Blood 11/13/2022 2:11 PM CDT Narrative [facility] - 11/13/2022 3:30 PM CDT Release to patient->Immediate us Woody Horvath MD CHEMISTRY ORDERABLES Final R esult Performing Organization Address City/State/[facility] Co de Phone Number [facility] [address] [phone] documented in this encounter Visit Diagnoses Diagnosis Lymphocytosis Lymphocytosis (symptomatic) documented in this encounter Care Teams Brakes Inspector Relationship Specialty Start Date End Date Keyonna Armstrong APRN, SMALL BUSINESS DIRECTOR [address] [place] [id number] PCP - General Family Medicine 10/19/22 documented as of this encounter
--- OUTSIDE RECORDS SUMMARY | 2024-07-10 23:15 | XMS_ITS | Encounter Summary ---
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
--- OUTSIDE RECORDS SUMMARY | 2024-07-10 23:15 | XMS_ITS | Encounter Summary ---
Author Organization [facility] Address [address] [place] [address] Care Team Providers Care Family And Marriage Counsellor Name Role Phone Unavailable Primary Care Provider Unavailabl e Encounter Details Date Type Department Care Team (Late st Contact Info) Description 06/12/2020 2:00 PM SIZE STAMPER Rapid Evaluation [facility] Community Testing [facility] [address] [address] Social History Tobacco Use Types Packs/Day Years Used Date Smoking Tobacco: Never Assessed Comments Unknown Sex and Gender Information Value Date Recorded Sex Assigned at Not on file Legal Sex Female 1:39 PM SIZE STAMPER Gender Identity Not on file Sexual Orientation Not on file documented as of this encounter Plan of Treatment Upcoming Encounters Date Type Department Care Team (Late st Contact Info) Description 03/30/2025 9:45 AM CDT Office Visit [facility] [address] [phone] Woody Horvath MD [address] [place] [address] documented as of this encounter Visit Diagnoses Not on filedocumented in this encounter
--- OUTSIDE RECORDS SUMMARY | 2024-07-10 23:15 | XMS_ITS | Encounter Summary ---
Author Organization [facility] Address [address] [place] [address] Care Team Providers Care Cellophaner Name Role Phone Unavailable Primary Care Provider Unavailabl e Encounter Details Date Type Department Care Team (Late st Contact Info) Description 06/26/2020 3:00 PM GARBAGE COLLECTOR Rapid Evaluation [facility] Community Testing [facility] [address] [place] [address] Social History Tobacco Use Types Packs/Day Years Used Date Smoking Tobacco: Never Assessed Comments Unknown Sex and Gender Information Value Date Recorded Sex Assigned at Not on file Legal Sex Female 1:39 PM GARBAGE COLLECTOR Gender Identity Not on file Sexual Orientation Not on file documented as of this encounter Plan of Treatment Upcoming Encounters Date Type Department Care Team (Late st Contact Info) Description 03/30/2025 9:45 AM CDT Office Visit [facility] [address] [phone] Woody Horvath MD [address] [place] [phone] documented as of this encounter Visit Diagnoses Not on filedocumented in this encounter
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
--- OUTSIDE RECORDS SUMMARY | 2024-07-10 23:17 | XMS_ITS | Encounter Summary ---
Author Organization [facility] Address [address] [address] Care Team Providers Care Ancillary Services Manager Therapy Name Role Phone Keyonna Armstrong Primary Care Provider + Gasper Ochoa MD Unavailable Reason for Referral * Procedure (Routine) - Closed Specialty Diagnoses / Procedures Referred By Contac t Referred To Contact Diagnoses Chronic bilateral low back pain with bilateral sciatica Procedures Trigger Point Injection Valentina Curtis NP [address] [facility] [address] [place] [address] [place] [phone] Phone: tel: fax: [facility] Referral ID Status Reason Start Date Expiration Date Visits Re quested Visits Authorized [id number] Closed 05/22/2022 06/21/2023 1 1 * Procedure (Routine) - Closed Specialty Diagnoses / Procedures Referred By Contac t Referred To Contact Diagnoses Chronic bilateral low back pain with bilateral sciatica Procedures Trigger Point Injection Valentina Curtis NP [facility] [facility] [address] [place] [address] [place] [id number] Phone: tel: fax: [facility] Medical [facility] Referral ID Status Reason Start Date Expiration Date Visits Re quested Visits Authorized [id number] Closed 05/22/2022 06/21/2023 1 1 * Diagnostic Imaging (Routine) - Closed Specialty Diagnoses / Procedures Referred By Contac t Referred To Contact Diagnoses Chronic bilateral low back pain with bilateral sciatica Procedures XR Spine Lumbar W Bending 6 or More Views Valentina Curtis NP [facility] [address] [place] [address] Phone: tel: fax: [address] [phone] Referral ID Status Reason Start Date Expiration Date Visits Re quested Visits Authorized [id number] Closed 05/22/2022 06/21/2023 1 1 Reason for Visit * Reason Comments Pain Injections Encounter Details Date Type Department Care Team (Late st Contact Info) Description 05/22/2022 10:00 AM CDT Office Visit [facility] Orthopedics and Sports Medicine [address] [place] [phone] Valentina Curtis NP [address] [place] [phone] Chronic bilateral low back pain with bilateral sciatica (Primary Dx); Anterolisthesis of lumbar spine-mild L1 on L2, L2 on L3 and L3 on L4; Lumbar facet arthropathy; DDD (degenerative disc disease), lumbar; Chronic neck pain; Myalgia, other site; BMI 45.0-49.9, adult ([facility]) ([facility]) Social History Tobacco Use Types Packs/Day Years Used Date Smoking Tobacco: Never Smokeless Tobacco: Never Tobacco Cessation:Counseling Given: Not Answered Alcohol Use Standard Drinks/Week Comments No 0 (1 standard drink = 0.6 oz pur e alcohol) AUDIT-C Answer Date Recorded Q1: How often do you have a drink containing alc ohol? Never 09/14/2021 Average Number of Drinks Not on file 022 Q3: How often do you have si x or more drinks on one occasion? 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 Not on file Not on file Not on leeann e documented as of this encounter Last Filed Vital Signs Vital Sign Reading Time Taken Comments Blood Pressure - - Pulse - - Temperature - - Respiratory Rate - - Oxygen Saturation - - Inhaled Oxygen Concentration - - Weight 124.7 kg (275 lb) 05/22/2022 10:05 AM CDT Height 165.1 cm (5' 5) 05/22/2022 10:05 AM CDT Body Mass Index 45.76 05/22/2022 10:05 AM CDT documented in this encounter Ordered Prescriptions Prescription Sig Dispense Quantity Refills Last Filled Start Date End Date gabapentin (NEURONTIN) 100 mg capsule Take 1 capsule PO TID 90 capsule 05/22/2022 2 documented in this encounter Progress Notes * Valentina Curtis, FINAL INSPECTOR BALANCE WHEEL - 05/22/2022 10:00 AM CDTAssociated Order(s): Trigger Point Injection; Trigger Point Injection Post-Procedure Diagnose(s): Chronic bilateral low back pain with bilateral sciatica Reason for Appointment Chronic neck pain Chronic lumbar pain History of Present Illness: Veronica Evangelista is a 51 y.o. female arrived to the orthopedic department ambulatory, walking with no assisted devices. She is here today for chief complaint of chronic right-sided neck pain and chronic low back pain. She reports that the previous pain radiating down the right arm is now gone (she has had prior cortisone injections under fluoroscopy by Dr. Jonathan Ochoa as well as cortisone trigger point injections with good resolution of right cervical radiculopathy pain symptoms). She also reports having low back pain with a lightening bolt type pain radiating down the right leg and sometimes the left and difficulty sleeping due to lumbar pain, leg pain symptoms. She reports a history of neck pain symptoms and low back pain symptoms ongoing for approximately 30 years however the lumbar sciatica type pain is new since October 2021 with no new recent injuries and no bowel or bladder dysfunction. She currently uses ibuprofen and methocarbamol for her pain symptoms. She has a current BMI of 45.76 and reports that she has been trying self-directed weight loss program. Previous conservative treatments and evaluations include the following: She went to [facility] April 2021 and had dry needle therapy and physical therapy which she stopped due to increasing pain. She has tried home cervical spine range of motion exercises. April 2021-- she went to Dr. Mars, chiropractor at [facility] with no reduction of pain symptoms. She has tried Voltaren gel, ibuprofen, acetaminophen, Robaxin and ice therapy. She previously triedTylenol #3. 05/30/2021--she was evaluated by Dr. Pepe Zepeda where it was determined that she did not have any need for right shoulder surgical intervention June 21, 2021--EMG/NCS study right upper extremity completed by Dr. Memo Elliott without any abnormal findings September 14, 2021--she had bilateral C5-C6 and bilateral C6-C7 facet joint injection with fluoroscopic guidance by Dr. Jonathan Ochoa August 31, 2021- she had bilateral C4-5, C5-C6 and C6-C7 facet joint injection with fluoroscopic guidance by Dr. Jonathan Ochoa Previous injuries: summer--she fell out of the car landing on her right side on concrete. She was able to get herself up and walk. Assessment: Diagnosis Plan 1. Chronic bilateral low back pain with bilateral sciatica XR Spine Lumbar W Bending 6 or More Views Trigger Point Injection Trigger Point Injection 2. Anterolisthesis of lumbar spine-mild L1 on L2, L2 on L3 and L3 on L4 3. Lumbar facet arthropathy 4. DDD (degenerative disc disease), lumbar 5. Chronic neck pain 6. Myalgia, other site 7. BMI 45.0-49.9, adult ([facility]) ([facility]) Plan: For her lumbar pain symptoms with episodes of radicular pain--today I reviewed with Veronica, the lumbar spine 6 view x-rays obtained today May 22, 2022 (see the findings below for more details). I gave Veronica (2) cortisone trigger point injections using 2 mL 1% lidocaine without epi and 40 mg triamcinolone each to the lower lumbar paraspinal muscle region bilaterally near L4-L5 where there was the more focal area of hyperirritability with palpation. I have ordered gabapentin 100 mg p.o. with recommendations to try up to 300 mg of gabapentin at night to see if this will help with her lumbar pain/radicular leg pain symptoms. I discussed with Veronica, plans to obtain an MRI of the lumbar spine at a future date. She has an elevated BMI > 45 and would not make a good candidate for neurosurgical treatment of her back pain symptoms at this time. Today we discussed the importance of healthy lifestyle modifications for weight loss. For her chronic neck pain symptoms--she no longer has right upper extremity radicular pain. Recommended that she continue at home neck range of motion exercises. No cortisone trigger point injectionswere given today for her neck pain symptoms. She has a BMI of 45.76. She has been trying self-directed weight loss. Today I provided Veronica with information for Dr. Neil Wheat's weight loss program. She has a follow-up appointment scheduled with me on August 22, 2022 for evaluation of her chronicneck and lumbar pain symptoms. Imaging Reviewed: Lumbar spine x-ray (6 views) [...] There is preservation of vertebral body height. Koyw-ph-mwhbkloe multilevel degenerativeendplate change. Pfxm-pv-cmujwpcg facet arthropathy mid through lower lumbar spine. [...] can be obtained as clinically indicated. Multilevel autb-gj-jpbubfgq endplate degenerative changes with marginal spur formation. [...] indents the ventral cord. Thickened ligamentum flavum. Wopp-ip-ozseazxm spinal canal stenosis. Uncovertebral spurring and facet arthropathy with mild right and ebpb-kx-mmzgojur left neural foraminal narrowing. C7-T1: Anterolisthesis of C7 on T1 with unroofing of the disc. No significant spinal canal or neural foraminal narrowing. UPPER THORACIC: Incompletely imaged. No high-grade spinal canal stenosis. IMPRESSION: Multilevel spdj-jn-ccsnffoq cervical spondylotic changes as described. Spinal canal [...] Curtis NP Authorized by: Valentina Curtis NP Trigger Point Injection: Consent Given by: Patient Site marked: the procedure site was marked Timeout: prior to procedure the correct patient, procedure, and site was verified Consent obtained:: Verbal Risks discussed, including, but not limited to:: Pain Alternatives discussed:: Alternative treatment Site/side marked: Yes Indications: Myalgia Procedure Details: Location: L lumbar paraspinal Local anesthetic: Ethyl chloride spray Ultrasound guidance: No Needle size: 22 G Number of muscles: 1 or 2 Approach: Posterior 2 mL lidocaine 10 mg/mL (1 %); 40 mg triamcinolone 40 mg/mL Patient tolerance: Patient tolerated the procedure well with no immediate complications Trigger Point Injection Performed by: Valentina Curtis NP Authorized by: Valentina Curtis NP Trigger Point Injection: Consent Given by: Patient Site marked: the procedure site was marked Timeout: prior to procedure the correct patient, procedure, and site was verified Consent obtained:: Verbal Risks discussed, including, but not limited to:: Pain Alternatives discussed:: Alternative treatment Site/side marked: Yes Indications: Myalgia Procedure Details: Location: R lumbar paraspinal Local anesthetic: Ethyl chloride spray Ultrasound guidance: No Needle size: 22 G Number of muscles: 1 or 2 Approach: Posterior 2 mL lidocaine 10 mg/mL (1 %); 40 mg triamcinolone 40 mg/mL Patient tolerance: Patient tolerated the procedure well with no immediate complications Examination: Ortho Exam Lumbar spine exam: Inspection of the lumbar spine shows normal alignment, no surgical scars, no skin defects, no muscle atrophy, no masses, and no rashes. Palpation: No pain with palpation over the thoracic or lumbar spinous process pain region. There istenderness with palpation of the bilateral lower lumbar paraspinal muscle region greatest at L-4 and L-5. There is increased lumbar pain with extension and bilateral lateral bending. Referred pain to the bilateral gluteal region Straight leg raise produces positive increased right radicular leg pain Sensation is intact in [...] lower extremities are warm and well perfused. 2+ dorsalis pedis pulses. Toes warm to touch with capillary refill < 2 seconds. Hip exam: There is no groin pain with logroll internal and external rotation of the hip. There is full strength with hip adduction, abduction and flexion of the hips. Knee and ankle exam: full and equal strength with knee extension, flexion, ankle dorsi and plantar flexion. Cervical spine exam: Inspection of the cervical spine shows normal alignment, no surgical scars, no skin defects, no muscle atrophy, no masses, no rashes. Palpation: No concerning pain with palpation over the cervical spinous process region. There is mild tenderness with palpation of the right cervical paraspinal/facet region at C5 and C6 levels. Range of motion with flexion is 50??, with extension is 60??, with lateral rotation is 80?? and lateral bending is 45??. Spurlings test does not produce radicular pain down the bilateral arm/s. Hoffmans test is negative. Lhermittes sign is negative. Sensation is intact in the median, ulnar, radial, and axial distribution. Motor strength is intact with 5/5 strength of the deltoid with resisted abduction, 5/5 strength of the biceps with resisted elbow flexion, 5/5 strength of the triceps with resisted elbow extension. The patient is able to give a thumbs up, give an okay sign, abduct the fingers, cross the fingers, adduct the thumb to the fifth finger, and exhibit full director of vocational guidance strength Perfusion: 2+ radial and ulnar pulses. Fingers warm to touch with capillary refill < 2 seconds. General Appearance: Well-nourished, in no acute distress Neck: Neck supple. See cervical spine exam above. Skin No presence of erythema or ecchymosis. No presence of skin excoriation or rashes, good turgor,warm and dry, no suspicious lesions Heart:Regular rate Lungs: Unlabored breathing Abdomen: Soft,no guarding Musculoskeletal: See cervical spine, lumbar spine exam above. Extremities: Capillary refill < 2 seconds in upper and lower extremity nail beds, 2+ bilateral upper and lower extremity peripheral pulses Neurological: Alert and oriented. She walks independently with no assisted devices. Psych: Cooperative with exam Allergies: Trazodone Medications: Current Outpatient Medications: buPROPion SR (WELLBUTRIN SR) 150 mg 12 hr tablet, Take 1 tablet by mouth 2 (two) times a day, Disp:, Rfl: cholecalciferol (VITAMIN D-3) 5,000 unit capsule, Take 5,000 Units by mouth every morning, Disp: , Rfl: fluticasone propionate (FLONASE) 50 mcg/actuation nasal spray, SPRAY 1 SPRAY INTO EACH NOSTRIL EVERY DAY, Disp: , Rfl: glucosamine/chondr hernadez A sod (OSTEO BI-FLEX ORAL), Take 1 tablet by mouth every morning, Disp: , Rfl: hydroCHLOROthiazide (HYDRODIURIL) 25 mg tablet, Take 25 mg by mouth every morning. , Disp: , Rfl: 0 ibuprofen (ADVIL,MOTRIN) 800 mg tablet, , Disp: , Rfl: lisinopril (PRINIVIL,ZESTRIL) 40 mg tablet, Take 40 mg by mouth every morning. , Disp: , Rfl: 0 LORazepam (ATIVAN) 1 mg tablet, , Disp: , Rfl: metFORMIN (GLUCOPHAGE) 500 mg tablet, TAKE 1 TABLET BY MOUTH EVERY MORNING AND TAKE 2 TABLETS AT BEDTIME, Disp: , Rfl: 1 methocarbamoL (ROBAXIN) 750 mg tablet, TAKE 1 TO 2 TABLETS BY MOUTH 3 TIMES A DAY NEEDED, Disp: , Rfl: metoprolol XL (TOPROL-XL) 100 mg 24 hr tablet, Take 100 mg by mouth nightly. , Disp: , Rfl: 1 multivitamin tablet, Take 1 tablet by mouth every morning., Disp: , Rfl: NOT IN DATABASE, PRESCRIPTION,, Spark Zinc and Selenium supplement for thyroid, Disp: , Rfl: pantoprazole DR (PROTONIX) 20 mg EC tablet, 20 mg , Disp: , Rfl: venlafaxine XR (EFFEXOR-XR) 75 mg 24 hr capsule, Take 225 mg by mouth nightly., Disp: , Rfl: VENTOLIN HFA 90 mcg/actuation inhaler, TAKE 2 PUFFS BY MOUTH EVERY 4 HOURS NEEDED FOR WHEEZING, Disp: , Rfl: 1 vit A,C and Z-xdynes-cviyrjex (OCUVITE with LUTEIN) 1,000 unit-200 mg-60 unit-2 mg tablet, Take 1 tablet by mouth daily, Disp: , Rfl: zolpidem (AMBIEN) 10 mg tablet, TAKE 1 TABLET BY MOUTH AT BEDTIME NEEDED, Disp: , Rfl: 1 acetaminophen-codeine (TYLENOL with CODEINE #3) 300-30 mg per tablet, , Disp: , Rfl: amLODIPine (NORVASC) 5 mg tablet, Take 5 mg by mouth. (Patient not taking: No sig reported), Disp: , Rfl: aspirin 81 mg chewable tablet, 81 mg daily (Patient not taking: No sig reported), Disp: , Rfl: diclofenac sodium (VOLTAREN) 1 % gel, Apply 4 g topically 4 (four) times a day (Patient not taking:No sig reported), Disp: , Rfl: gabapentin (NEURONTIN) 100 mg capsule, Take 1 capsule PO TID, Disp: 90 capsule, Rfl: 0 Lactobacillus acidophilus (Probiotic) 10 billion cell capsule, Rx: Probiotic - Capsule (Patient nottaking: No sig reported), Disp: , Rfl: Larissia 0.1-20 mg-mcg per tablet, , Disp: , Rfl: ondansetron (ZOFRAN) 4 mg tablet, Take 1 tablet (4 mg total) by mouth every 6 (six) hours as neededfor nausea or vomiting. (Patient not taking: No sig reported), Disp: 15 tablet, Rfl: 1 oxyCODONE (ROXICODONE) 5 mg immediate release tablet, Take 1 tablet (5 mg total) by mouth every 4 (four) hours as needed for pain. (Patient not taking: No sig reported), Disp: 20 tablet, Rfl: 0 sennosides (Laxative Maximum Strength) 25 mg tablet, 25 mg daily (Patient not taking: No sig reported), Disp: , Rfl: simethicone (MYLICON) 80 mg chewable tablet, 80 mg 4 (four) times a day (Patient not taking: No sigreported), Disp: , Rfl: Review of Systems: Review of Systems Constitutional: Positive for weight loss (Self-directed dietary changes). Negative for chills and fever. Respiratory: Negative for shortness of breath. Cardiovascular: Negative for chest pain. Gastrointestinal: Negative for abdominal pain. Genitourinary: Negative for dysuria. Musculoskeletal: Positive for back pain and neck pain. Skin: Negative for rash. Neurological: Positive for tingling (Bilateral lower extremities). Past Medical History: Past Medical History: Diagnosis [...] activity: None Alcohol Use: Not At Risk Frequency of Alcohol Consumption: Never Average Number of Drinks: Not on file Frequency of Binge Drinking: Never Vital Signs: Height 165.1 cm (5' 5), weight 124.7 kg (275 lb), not currently . BMI Readings from Last 1 Encounters: 05/22/22 45.76 kg/m?? Valentina Curtis NP documented in this encounter Plan of Treatment Not on file documented as of this encounter Procedures Procedure Name Priority Date/Time Associated Diagnosis Comments OK INJECTION SINGLE/HOME SERVICE CONSULTANT TRIGGER POINT 1/2 MUSCLES Routine 05/22/2022 10:00 AM CDT Chronic bilateral low back pain with bilateral sciatica OK INJECTION SINGLE/HOME SERVICE CONSULTANT TRIGGER POINT 1/2 MUSCLES Routine 05/22/2022 10:00 AM CDT Chronic bilateral low back pain with bilateral sciatica documented in this encounter Results * XR Spine Lumbar W Bending 6 or More Views (05/22/2022 11:04 AM CDT) Anatomical Region Laterality Modality Spine N/A Computed Radiogr aphy 05/22/2022 12:2 0 PM CDT Narrative 05/22/2022 12:24 PM CDT EXAM DESCRIPTION: ?? XR SPINE LUMBAR W BENDING 6 OR MORE VIEWS REASON FOR STUDY: ?? chronic lumbar pain ?? Low back pain radiates down rt buttock into leg x 5 mths, NKI ?? TECHNIQUE: ?? 6 ??radiographic views acquired of the lumbar spine. COMPARISON: ?? CT abdomen and pelvis 05/28/2018. FINDINGS: SEGMENTATION: ?? Normal. ??No transitional anatomy. ?? For purposes of numbering, the most fully formed inferior disc space is L5-S1. ALIGNMENT: ?? There is mild anterolisthesis of L1 on L2, L2 on L3 and L3 on L4. No significant change on flexion versus extension. VERTEBRAE: ?? There is preservation of vertebral body height. ??Dfeg-fy-nmbpobxs multilevel degenerative endplate change. ??Jvwv-cx-tavsqsbj facet arthropathy mid through lower lumbar spine. ?? This is more moderate inferiorly. ?? Oblique views demonstrate no pars defect. DISCS: ?? Moderate disc space narrowing L3-4, L4-5 and milder change at L5-S1. OTHER: ?? Sacroiliac joints are intact. ??Soft tissues are unremarkable. ?? Surgical clips are seen of the left upper quadrant. IMPRESSION: ?? Mild spondylosis lumbar spine with stable alignment on flexion versus extension. THIS IS AN ELECTRONICALLY VERIFIED FINAL REPORT 05/22/2022 12:24 PM - Electronically signed by ??Pepe FAUSTIN D: ??05/22/2022 12:24 PM T: Report ID: [id number] Reading Location: ??[id number] Procedure Note Pepe Adan MD - 05/22/2022 EXAM DESCRIPTION: XR SPINE LUMBAR W BENDING 6 OR MORE VIEWS REASON FOR STUDY: chronic lumbar pain Low back pain radiates down rt buttock into leg x 5 mths, NKI TECHNIQUE: 6 radiographic views acquired of the lumbar spine. COMPARISON: CT abdomen and pelvis 05/28/2018. FINDINGS: SEGMENTATION: Normal. No transitional anatomy. For purposesof numbering, the most fully formed inferior disc space is L5-S1. ALIGNMENT: There is mild anterolisthesis of L1 on L2, L2 on L3 and L3 onL4. No significant change on flexion versus extension. VERTEBRAE: There is preservation of vertebral body height.Xqhs-qg-rbewtrwn multilevel degenerative endplate change. Mcyx-zj-lxmzvxxn facetarthropathy mid through lower lumbar spine. This is more moderate inferiorly.Oblique views demonstrate no pars defect. DISCS: Moderate disc space narrowing L3-4, L4-5 and milder change atL5-S1. OTHER: Sacroiliac joints are intact. Soft tissues are unremarkable. Surgical clips are seen of the left upper quadrant. IMPRESSION: Mild spondylosis lumbar spine with stable alignment onflexion versus extension. THIS IS AN ELECTRONICALLY VERIFIED FINAL REPORT 05/22/2022 12:24 PM - Electronically signed by Pepe FAUSTIN T: Report ID: [id number] Reading Location: [id number] Valentina Curtis NP IMG XR PROCEDURES Final Res ult * OK INJECTION SINGLE/HOME SERVICE CONSULTANT TRIGGER POINT 1/2 MUSCLES (05/22/2022 10:00 AM CDT) Narrative Valentina Curtis NP - 05/22/2022 10:00 AM CDT Valentina Curtis NP ? 05/22/2022 ??8:06 PM Trigger Point Injection Performed by: Valentina Curtis NP Authorized by: Valentina Curtis NP Trigger Point Injection: ??Consent Given by: ??Patient ??Site marked: the procedure site was marked ?Timeout: prior to procedure the correct patient, procedure, and site was verified ?Consent obtained:: ??Verbal ??Risks discussed, including, but not limited to:: ??Pain ??Alternatives discussed:: ??Alternative treatment ??Site/side marked: Yes ?Indications: ??Myalgia Procedure Details: ??Location: ??R lumbar paraspinal ??Local anesthetic: ??Ethyl chloride spray ??Ultrasound guidance: No ?Needle size: ??22 G ??Number of muscles: ??1 or 2 ??Approach: ??Posterior ?? 2 mL lidocaine 10 mg/mL (1 %); 40 mg triamcinolone 40 mg/mL ??Patient tolerance: ??Patient tolerated the procedure well with no immediate complications us Valentina Curtis NP IN CLINIC/BEDSIDE ORDERABLE S Final Result * OK INJECTION SINGLE/HOME SERVICE CONSULTANT TRIGGER POINT 1/2 MUSCLES (05/22/2022 10:00 AM CDT) Narrative Valentina Curtis NP - 05/22/2022 10:00 AM CDT Valentina Curtis NP ? 05/22/2022 ??8:06 PM Trigger Point Injection Performed by: Valentina Curtis NP Authorized by: Valentina Curtis NP Trigger Point Injection: ??Consent Given by: ??Patient ??Site marked: the procedure site was marked ?Timeout: prior to procedure the correct patient, procedure, and site was verified ?Consent obtained:: ??Verbal ??Risks discussed, including, but not limited to:: ??Pain ??Alternatives discussed:: ??Alternative treatment ??Site/side marked: Yes ?Indications: ??Myalgia Procedure Details: ??Location: ??L lumbar paraspinal ??Local anesthetic: ??Ethyl chloride spray ??Ultrasound guidance: No ?Needle size: ??22 G ??Number of muscles: ??1 or 2 ??Approach: ??Posterior ?? 2 mL lidocaine 10 mg/mL (1 %); 40 mg triamcinolone 40 mg/mL ??Patient tolerance: ??Patient tolerated the procedure well with no immediate complications us Valentina Curtis FINAL INSPECTOR BALANCE WHEEL IN CLINIC/BEDSIDE ORDERABLE S Final Result documented in this encounter Visit Diagnoses Diagnosis Chronic bilateral low back pain with bilateral sciatica- Primary Anterolisthesis of lumbar spine-mild L1 on L2, L2 on L3 and L3 on L4 Lumbar facet arthropathy Spondylosis of unspecified site without mention of myelopathy DDD (degenerative disc disease), lumbar Degeneration of lumbar or lumbosacral intervertebral disc Chronic neck pain Cervicalgia Myalgia, other site BMI 45.0-49.9, adult ([facility]) Chronic bilateral low back pain with bilateral sciatica documented in this encounter Administered Medications Inactive Administered Medications - up to 3 most recent administrations Medication Order MAR Action Action Date Dose Rate Site lidocaine (XYLOCAINE) 10 mg/mL (1 %) injection 2 mL 2 mL, One-Time Injection, Starting on Sun05/22/22 at 1200, For 1 dose, Indications: Administration of Local AnesthesiaIndications:Administrati on of Local Anesthesia Given 05/22/2022 12:00 PM CDT 2 mL lidocaine (XYLOCAINE) 10 mg/mL (1 %) injection 2 mL 2 mL, One-Time Injection, Starting on Sun05/22/22 at 1202, For 1 dose, Indications: Administration of Local AnesthesiaIndications:Administrati on of Local Anesthesia Given 05/22/2022 12:02 PM CDT 2 mL triamcinolone (KENALOG) 40 mg/mL injection 40 mg 40 mg, intra-articular, One-Time Injection, Starting on Sun05/22/22 at 1200, For 1 doseIndications:Chronic bilateral low back pain with bilateral sciatica Given 05/22/2022 12:00 PM CDT 40 mg triamcinolone (KENALOG) 40 mg/mL injection 40 mg 40 mg, intra-articular, One-Time Injection, Starting on Sun05/22/22 at 1202, For 1 doseIndications:Chronic bilateral low back pain with bilateral sciatica Given 05/22/2022 12:02 PM CDT 40 mg documented in this encounter Discontinued Medications Medication Sig Discontinue Reason Start Date End Da te tiZANidine (ZANAFLEX) 4 mg tablet TAKE 1 TABLET BY MOUTH EVERY DAY AT BEDTIME NEEDED 11/22/2021 05/22/2022 documented as of this encounter Historical Medications * This list may reflect changes made after this encounter. methocarbamoL (ROBAXIN) 750 mg tablet TAKE 1 TO 2 TABLETS BY MOUTH 3 TIMES A DAY NEEDED 04/19/2022 08/28/2023 added in this encounter Care Teams Ancillary Services Manager Therapy Relationship Specialty Start Date End Date Keyonna Armstrong PA PCP - General Nurse Practitioner 06/20/18 Gasper Ochoa MD [address] [facility] [address] [place] [address] Consulting Physician Pain Management 08/31/21 documented as of this encounter
--- OUTSIDE RECORDS SUMMARY | 2024-07-10 23:17 | XMS_ITS | Encounter Summary ---
Author Organization [facility] Healthcare Address [address] [place] [address] Care Team Providers Care Pack Changer Name Role Phone Keyonna Armstrong Primary Care Provider + Gasper Ochoa MD Unavailable Reason for Visit * Reason Onset Date Comments Med Refill 07/20/2023 Encounter Details Date Type Department Care Team (Late st Contact Info) Description 07/20/2023 Telephone [facility] Family Medicine at [address] [place] [address] Mark Wheat MD [address] [place] [id number] Med Refill Social History Tobacco Use Types Packs/Day Years Used Date Smoking Tobacco: Never Smokeless Tobacco: Never Alcohol Use Standard Drinks/Week Comments No 0 (1 standard drink = 0.6 oz pur e alcohol) AUDIT-C Answer Date Recorded Q1: How often do you have a drink containing alc ohol? Never 05/29/2023 Average Number of Drinks Not on file 023 Q3: How often do you have si x or more drinks on one occasion? 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 on file Not on file Not on leeann e documented as of this encounter Ordered Prescriptions Prescription Sig Dispense Quantity Refills Last Filled Start Date End Date tirzepatide (Mounjaro) 5 mg/0.5 mL pen injector Inject 5 mg under the skin every 7 days 2 mL 07/20/2023 08/13/2023 documented in this encounter Miscellaneous Notes * Telephone Encounter - Liset Durand RN - 07/20/2023 1:57 PM COMMUT[employer]OT Script sent to pharmacy [facility] * Telephone Encounter - Liset Durand RN - 07/20/2023 1:57 PM COMM[employer] Increased mounjaro sent to pharmacy [facility] * Telephone Encounter - Kelsey Parekh - 07/20/2023 1:17 PM CST Medication Question/Clarification Medication Name(s): tirzepatide (Mounjaro) 2.5 mg/0.5 mL pen injector What is the question or clarification needed? She was to let the provider know if this was working for her. She has had no side effects but no weight loss at the 2.5 mg. She is due for a refill and is wanting to know if this can be increased. She is due for her injection on Sunday. If needed, Pharmacy(s) medication(s) should be sent to: [facility]/pharmacy #[id number] Additional Comments: none Does message need to be routed? Yes-Action Needed [facility] documented in this encounter Plan of Treatment Not on file documented as of this encounter Visit Diagnoses Diagnosis Controlled type 2 diabetes mellitus without complication, without long-term current use of insulin ([facility]/HCC) (HCC) documented in this encounter Discontinued Medications Medication Sig Discontinue Reason Start Date End Da te tirzepatide (Mounjaro) 2.5 mg/0.5 mL pen injectorIndications:type 2 diabetes mellitus INJECT 0.5 ML (2.5 MG TOTAL) UNDER THE SKIN ONCE A WEEK FOR 28 DAYS 07/10/2023 07/20/2023 documented as of this encounter Care Teams Pack Changer Relationship Specialty Start Date End Date Keyonna Armstrong PA PCP - General Nurse Practitioner 06/20/18 Gasper Ochoa MD [address] [facility] [address] [place] [address] Consulting Physician Pain Management 08/31/21 documented as of this encounter
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
--- OUTSIDE RECORDS SUMMARY | 2024-07-10 23:17 | XMS_ITS | Encounter Summary ---
Author Organization [facility] Healthcare Address [address] [place] [address] Care Team Providers Care Gaggerman Name Role Phone Keyonna Armstrong Primary Care Provider + Gasper Ochoa MD Unavailable Reason for Referral * Procedure (Routine) - Pending Review Specialty Diagnoses / Procedures Referred By Contac t Referred To Contact Diagnoses Myalgia, other site Procedures Trigger Point Injection Valentina Curtis NP [address] [place] [address] [place] [address] Phone: tel: fax: [facility] Medical Group Referral ID Status Reason Start Date Expiration Date V isits Requested Visits Authorized [id number] Pending Review 11/26/2023 12/25/2024 1 1 * Procedure (Routine) - Pending Review Specialty Diagnoses / Procedures Referred By Contac t Referred To Contact Diagnoses Myalgia, other site Procedures Trigger Point Injection Valentina Curtis NP [facility] [place] [address] [place] [id number] Phone: tel: fax: [facility] Medical [facility] Referral ID Status Reason Start Date Expiration Date V isits Requested Visits Authorized [id number] Pending Review 11/26/2023 12/25/2024 1 1 Reason for Visit * Reason Comments Pain Encounter Details Date Type Department Care Team (Late st Contact Info) Description 11/26/2023 11:00 AM CDT Office Visit [facility] Medical Group Orthopedics and Sports Medicine [address] [place] [address] [address] [place] [phone] Valentina Curtis NP [address] [place] [id number] Myalgia, other site (Primary Dx); Chronic bilateral low back pain without sciatica; Lumbar facet arthropathy, multilevel mild/moderate; DDD (degenerative disc disease), lumbar, moderate L3-L4, L4-L5; Anterolisthesis of lumbar spine, mild L1 on L2, L2 on L3, L3 on L4; Strain of right trapezius muscle, subsequent encounter Social History Tobacco Use Types Packs/Day [...] on file 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 Gender Identity Not on file Sexual Orientation Not on file 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 Not on file Not on file Not on leeann e documented as of this encounter Last Filed Vital Signs Vital Sign Reading Time Taken Comments Blood Pressure - - Pulse - - Temperature - - Respiratory Rate - - Oxygen Saturation - - Inhaled Oxygen Concentration - - Weight 123.8 kg (273 lb) 11/26/2023 10:56 AM CDT Height 165.1 cm (5' 5) 11/26/2023 10:56 AM CDT Body Mass Index 45.43 11/26/2023 10:56 AM CDT documented in this encounter Ordered Prescriptions Prescription Sig Dispense Quantity Refills Last Filled Start Date End Date gabapentin (NEURONTIN) 100 mg capsuleIndications :Chronic bilateral low back pain without sciatica Take 1 capsule (100 mg total) by mouth 3 (three) times a day 90 capsule 3 11/26/2023 4 documented in this encounter Progress Notes * Valentina Curtis, GRADES 1 THROUGH 6 TEACHER - 11/26/2023 11:00 AM CDTAssociated Order(s): Trigger Point Injection; Trigger Point Injection Post-Procedure Diagnose(s): Myalgia, other site Images from the original note were not included. Reason for Appointment Chronic lumbar pain Right upper trapezius pain History of Present Illness: Veronica Evangelista is a 53 y.o. female arrived to the orthopedic department ambulatory, walking with no assisted devices accompanied by her . She is here today requesting to have cortisone trigger point injections for her chronic lumbar pain symptoms. Previous cortisone trigger point injectionsgiven 08/27/2023 for similar type lumbar pain symptoms provided 90% reduction of lumbar pain.. She is also experiencing some discomfort to the right upper trapezius region. She denies any new injuries and denies any bowel or bladder dysfunction or saddle paresthesia type symptoms. She currently uses ibuprofen and Voltaren gel for pain reduction. Her lumbar pain is worse with activities involving walking and standing. She has requesting a refill on gabapentin which she is used in the past and found helpful for her pain symptoms. She previously had neck pain symptoms which [...] 2021. She is under the care of Dr. Mark Wheat for metabolic syndrome and is currently prescribed Mounjaro. Her current BMI is 45.43. Previous conservative treatments and evaluations of her neck and lumbar pain symptoms include the following: She has had previous cortisone trigger point injections for her chronic lumbar pain with her last cortisone trigger point injections given 08/27/2023 She went to [facility] April 2021 and had dry needle therapy and physical therapy which she stopped due to increasing pain. She has home cervical spine range of motion exercises. April 2021-- she went to Dr. Mars, chiropractor at [facility] with no reduction of pain symptoms. [...] able to get herself up and walk. 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 Assessment: Diagnosis Plan 1. Myalgia, other site Trigger Point Injection Trigger Point Injection 2. Chronic bilateral low back pain without sciatica gabapentin (NEURONTIN) 100 mg capsule 3. Lumbar facet arthropathy, multilevel mild/moderate 4. DDD (degenerative disc disease), lumbar, moderate L3-L4, L4-L5 5. Anterolisthesis of lumbar spine, mild L1 on L2, L2 on L3, L3 on L4 6. Strain of right trapezius muscle, subsequent encounter Plan: For her chronic lumbar pain symptoms, today I gave Veronica cortisone trigger point injections using 2mL 1% lidocaine without epi and 40 mg triamcinolone each to the bilateral lower lumbar paraspinal muscle region near L5 in the right gluteal region where there was the more focal area of hyperirritability with palpation. I prescribed gabapentin 100 mg p.o. #90 w/3 refills. For her pain present to the right upper trapezius muscle region, today I gave Veronica knee cortisone trigger point injection using 1 mL 1% lidocaine without epi and 40 mg triamcinolone to the right upper trapezius muscle region where there was focal hyperirritability with palpation. She has a follow-up appointment scheduled with me on January 23, 2024 for her chronic lumbar pain symptoms. Imaging Reviewed: Lumbar spine [...] There is preservation of vertebral body height. Yjbv-wo-ckfghmzf multilevel degenerativeendplate change. Wfzd-uk-wjtvqvts facet arthropathy mid through lower lumbar spine. [...] can be obtained as clinically indicated. Multilevel nxgb-xo-zoyewaci endplate degenerative changes with marginal spur formation. [...] indents the ventral cord. Thickened ligamentum flavum. Jnxv-vj-vztvhldn spinal canal stenosis. Uncovertebral spurring and facet arthropathy with mild right and nuit-ej-nisdunty left neural foraminal narrowing. C7-T1: Anterolisthesis of C7 on T1 with unroofing of the disc. No significant spinal canal or neural foraminal narrowing. UPPER THORACIC: Incompletely imaged. No high-grade spinal canal stenosis. IMPRESSION: Multilevel vxcd-yj-ubqknytg cervical spondylotic changes as described. Spinal canal [...] no treatment Site/side marked: Yes Indications: Myalgia Procedure Details: Location: L lumbar paraspinal, R lumbar paraspinal and R gluteus denton Local anesthetic: Ethyl chloride spray Ultrasound guidance: No Needle size: 22 G Number of muscles: 1 or 2 Approach: Posterior 6 mL lidocaine 10 mg/mL (1 %); 120 mg triamcinolone 40 mg/mL Patient tolerance: Patient [...] discussed:: Alternative treatment Site/side marked: Yes Indications: Pain Procedure Details: Location: R upper trapezius Local anesthetic: Ethyl chloride spray Ultrasound guidance: No Needle size: 25 G Number of muscles: 1 or 2 Approach: Posterior 1 mL lidocaine 10 mg/mL (1 %); 40 [...] lower lumbar paraspinal muscle region greatest bilaterally more prominent near L5 and there is pain with palpation to the right gluteal region. Straight leg raise produces negative radicular leg [...] touch with capillary refill < 2 seconds. Cervical spine exam: Inspection of the cervical spine shows normal alignment, no cervical surgical scars, no skin defects, no muscle atrophy, no masses, no rashes. Palpation: No concerning pain with palpation over the cervical spinous process region and no pain with palpation over the cervical paraspinal/facet region. There is pain with palpation to the right upper trapezius region. Range of motion with flexion is <50??, [...] of the triceps with resisted elbow extension. She is able to give a thumbs up, give an okay sign, abduct the fingers, cross the fingers, adduct thethumb to the fifth finger, and exhibit full forging die sinker strength Perfusion: 2+ radial and ulnar pulses. Fingers warm to touch with capillary refill < 2 seconds. General Appearance: Well-nourished, in no acute distress. BMI 45.43 Heart: No chest Lungs: Unlabored breathing Abdomen: [...] capsule, Take by mouth, Disp: , Rfl: diclofenac sodium (VOLTAREN) 1 % gel, Apply 4 g topically 4 (four) times a day, Disp: , Rfl: fluticasone propionate (FLONASE) 50 mcg/actuation nasal spray, SPRAY 1 SPRAY INTO EACH NOSTRIL EVERY DAY, Disp: , Rfl: hydroCHLOROthiazide (HYDRODIURIL) 25 mg tablet, Take 1 tablet (25 mg total) by mouth every morning,Disp: , Rfl: 0 ibuprofen (ADVIL,MOTRIN) 800 mg tablet, , Disp: , Rfl: Lactobacillus acidophilus (Probiotic) 10 billion cell capsule, Rx: Probiotic - Capsule, Disp: , Rfl: lisinopril (PRINIVIL,ZESTRIL) 40 mg tablet, Take 1 tablet (40 mg total) by mouth every morning, Disp: , Rfl: 0 LORazepam (ATIVAN) 1 mg tablet, , Disp: , Rfl: metFORMIN (GLUCOPHAGE) 500 mg tablet, TAKE 1 TABLET BY MOUTH EVERY MORNING AND TAKE 2 TABLETS AT BEDTIME, Disp: , Rfl: 1 metoprolol XL (TOPROL-XL) 100 mg 24 hr tablet, Take 1 tablet (100 mg total) by mouth nightly, Disp:, Rfl: 1 mirtazapine (REMERON) 15 mg tablet, Take 1 tablet (15 mg total) by mouth nightly, Disp: , Rfl: multivitamin tablet, Take 1 tablet by mouth every morning, Disp: , Rfl: NOT IN DATABASE, PRESCRIPTION,, Spark Zinc and Selenium supplement for thyroid, Disp: , Rfl: ondansetron (ZOFRAN) 4 mg tablet, Take 1 tablet (4 mg total) by mouth every 6 (six) hours as neededfor nausea or vomiting., Disp: 15 tablet, Rfl: [address] (PROTONIX) 20 mg EC tablet, 1 tablet (20 mg total), Disp: , Rfl: progesterone (PROMETRIUM) 200 mg capsule, Take 1 capsule (200 mg total) by mouth daily, Disp: , Rfl: sennosides (Laxative Maximum Strength) 25 mg tablet, 25 mg daily, Disp: , Rfl: simethicone (MYLICON) 80 mg chewable tablet, 1 tablet (80 mg total) 4 (four) times a day, Disp: , Rfl: tirzepatide (Mounjaro) 10 mg/0.5 mL pen injector, INJECT 10 MG UNDER THE SKIN EVERY 7 DAYS, Disp: 3mL, Rfl: 1 venlafaxine XR (EFFEXOR-XR) 75 mg 24 hr capsule, Take 3 capsules (225 mg total) by mouth nightly, Disp: , Rfl: VENTOLIN HFA 90 mcg/actuation inhaler, TAKE 2 PUFFS BY MOUTH EVERY 4 HOURS NEEDED FOR WHEEZING, Disp: , Rfl: 1 vit A,C and E-caiflq-cbiybyqg (OCUVITE with LUTEIN) 1,000 unit-200 mg-60 unit-2 mg tablet, Take 1 tablet by mouth daily, Disp: , Rfl: zolpidem (AMBIEN) 10 mg tablet, TAKE 1 TABLET BY MOUTH AT BEDTIME NEEDED, Disp: , Rfl: 1 gabapentin (NEURONTIN) 100 mg capsule, Take 1 capsule (100 mg total) by mouth 3 (three) times a day, Disp: 90 capsule, Rfl: 3 Past Medical History: Past Medical History: Diagnosis [...] Signs: Height 165.1 cm (5' 5), weight 123.8 kg (273 lb), not currently . BMI Readings from Last 1 Encounters: 11/26/23 45.43 kg/m?? Valentina Curtis NP documented in this encounter Plan of Treatment Not on file documented as of this encounter Procedures Procedure Name Priority Date/Time Associated Diagnosis Comments [place] INJECTION SINGLE/SUPERVISOR MOLD SHOP TRIGGER POINT 1/2 MUSCLES Routine 11/26/2023 11:00 AM CDT Myalgia, other site [place] INJECTION SINGLE/SUPERVISOR MOLD SHOP TRIGGER POINT 1/2 MUSCLES Routine 11/26/2023 11:00 AM CDT Myalgia, other site documented in this encounter Results * [place] INJECTION SINGLE/SUPERVISOR MOLD SHOP TRIGGER POINT 1/2 MUSCLES (11/26/2023 11:00 AM CDT) Narrative Valentina Curtis NP - 11/26/2023 11:00 AM CDT Valentina Curtis NP ? 11/26/2023 ??7:03 PM Trigger Point Injection Performed by: Valentina Curtis NP Authorized by: Valentina Curtis NP ?? Trigger Point Injection: ??Consent Given by: ??Patient ??Site marked: the procedure site was marked ?Timeout: prior to procedure the correct patient, procedure, and site was verified ?Consent obtained:: ??Verbal ??Risks discussed, including, but not limited to:: ??Pain ??Alternatives discussed:: ??Alternative treatment ??Site/side marked: Yes ?Indications: ??Pain Procedure Details: ??Location: ??R upper trapezius ??Local anesthetic: ??Ethyl chloride spray ??Ultrasound guidance: No ?Needle size: ??25 G ??Number of muscles: ??1 or 2 ??Approach: ??Posterior ?? 1 mL lidocaine 10 mg/mL (1 %); 40 mg triamcinolone 40 mg/mL ??Patient tolerance: ??Patient tolerated the procedure well with no immediate complications us Valentina Curtis NP IN CLINIC/BEDSIDE ORDERABLE S Final Result * [place] INJECTION SINGLE/SUPERVISOR MOLD SHOP TRIGGER POINT 1/2 MUSCLES (11/26/2023 11:00 AM CDT) Narrative Valentina Curtis NP - 11/26/2023 11:00 AM CDT Valentina Curtis NP ? 11/26/2023 ??7:03 PM Trigger Point Injection Performed by: Valentina Curtis NP Authorized by: Valentina Curtis NP ?? Trigger Point Injection: ??Consent Given by: ??Patient ??Site marked: the procedure site was marked ?Timeout: prior to procedure the correct patient, procedure, and site was verified ?Consent obtained:: ??Verbal ??Risks discussed, including, but not limited to:: ??Pain and repeat procedure ??Alternatives discussed:: ??Alternative treatment, delayed treatment and no treatment ??Site/side marked: Yes ?Indications: ??Myalgia Procedure Details: ??Location: ??L lumbar paraspinal, R lumbar paraspinal and R gluteus denton ??Local anesthetic: ??Ethyl chloride spray ??Ultrasound guidance: No ?Needle size: ??22 G ??Number of muscles: ??1 or 2 ??Approach: ??Posterior ?? 6 mL lidocaine 10 mg/mL (1 %); 120 mg triamcinolone 40 mg/mL ??Patient tolerance: ??Patient tolerated the procedure well with no immediate complications us Valentina Curtis GRADES 1 THROUGH 6 TEACHER IN CLINIC/BEDSIDE ORDERABLE S Final Result documented [...] L2, L2 on L3, L3 on L4 Strain of right trapezius muscle, subsequent encounter documented in this encounter Administered Medications Inactive Administered Medications - up to 3 most recent administrations Medication Order MAR Action Action Date Dose Rate Site lidocaine (XYLOCAINE) 10 mg/mL (1 %) injection 1 mL 1 mL, One-Time Injection, Starting on Sun11/26/23 at 1100, For 1 dose, Indications: Administration of Local AnesthesiaIndications:Administrat ion of Local Anesthesia Given 11/26/2023 11:00 AM CDT 1 mL lidocaine (XYLOCAINE) 10 mg/mL (1 %) injection 6 mL 6 mL, One-Time Injection, Starting on Sun11/26/23 at 1100, For 1 dose, Indications: Administration of Local AnesthesiaIndications:Administrat ion of Local Anesthesia Given 11/26/2023 11:00 AM CDT 6 mL triamcinolone (KENALOG) 40 mg/mL injection 120 mg 120 mg, One-Time Injection, Starting on Sun11/26/23 at 1100, For 1 doseIndications:Myalgia, other site Given 11/26/2023 11:00 AM CDT 120 mg triamcinolone (KENALOG) 40 mg/mL injection 40 mg 40 mg, One-Time Injection, Starting on Sun11/26/23 at 1100, For 1 doseIndications:Myalgia, other site Given 11/26/2023 11:00 AM CDT 40 mg documented in this encounter Care Teams Gaggerman Relationship Specialty Start Date End Date Keyonna Armstrong PA PCP - General Nurse Practitioner 06/20/18 Gasper Ochoa MD [address] [place] [facility] [place] [address] Consulting Physician Pain Management 08/31/21 documented as of this encounter
--- OUTSIDE RECORDS SUMMARY | 2024-07-10 23:17 | XMS_ITS | Encounter Summary ---
Author Organization [facility] Medical [facility] Address [address] [address] Care Team Providers Care Date Puller Name Role Phone Keyonna Armstrong Primary Care Provider + Gasper Ochoa MD Unavailable Reason for Referral * Procedure (Routine) - Closed Specialty Diagnoses / Procedures Referred By Contac t Referred To Contact Diagnoses Ischiogluteal bursitis, right Procedures Large Joint (Hip, Knee, Shoulder) Injection: R ischiogluteal bursa Valentina Curtis NP [address] [place] [address] [place] [address] Phone: tel: fax: [facility] Referral ID Status Reason Start Date Expiration Date Visits Re quested Visits Authorized [id number] Closed 11/20/2022 12/20/2023 1 1 * Procedure (Routine) - Closed Specialty Diagnoses / Procedures Referred By Contac t Referred To Contact Diagnoses Myalgia, other site Procedures Trigger Point Injection Valentnia Curtis NP [facility] [facility] [address] [place] [address] [place] [address] Phone: tel: fax: [facility] Medical [facility] Referral ID Status Reason Start Date Expiration Date Visits Re quested Visits Authorized [id number] Closed 11/20/2022 12/20/2023 1 1 Reason for Visit * Reason Comments Pain Pain Encounter Details Date Type Department Care Team (Late st Contact Info) Description 11/20/2022 9:00 AM CDT Office Visit [facility] Orthopedics and Sports Medicine [address] [place] [address] [address] [place] [address] Valentina Curtis NP [address] [place] [address] [address] [place] [address] Myalgia, other site (Primary Dx); Chronic bilateral low back pain with bilateral sciatica; Lumbar facet arthropathy, multilevel mild/moderate; DDD (degenerative disc disease), lumbar, multilevel moderate L3-L4, L4-L5; Anterolisthesis of lumbar spine-mild L1 on L2, L2 on L3 and L3 on L4; Ischiogluteal bursitis, right Social History Tobacco Use Types Packs/Day Years [...] on file 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 Gender Identity Not on file Sexual Orientation Not on file 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 Not on file Not on file Not on leeann e documented as of this encounter Last Filed Vital Signs Vital Sign Reading Time Taken Comments Blood Pressure - - Pulse - - Temperature - - Respiratory Rate - - Oxygen Saturation - - Inhaled Oxygen Concentration - - Weight 127 kg (280 lb) 11/20/2022 9:17 AM CDT Height 165.1 cm (5' 5) 11/20/2022 9:17 AM CDT Body Mass Index 46.59 11/20/2022 9:17 AM CDT documented in this encounter Progress Notes * Valentina Curtis NP - 11/20/2022 9:00 AM CDTAssociated Order(s): Trigger Point Injection; Large Joint (Hip, Knee, Shoulder) Injection: R ischiogluteal bursa Post-Procedure Diagnose(s): Myalgia, other site; Ischiogluteal bursitis, right Reason for Appointment Chronic neck pain, chronic lumbar pain History of Present Illness: Veronica Evangelista is a 52 y.o. female arrived to the orthopedic department ambulatory, walking with no assisted devices. She is here today for pain primarily located in the right gluteal region, right leg region and is requesting cortisone trigger point injections for her pain symptoms. Her last cortisone trigger point injections given August 22, 2022 for similar type pain provided at least 80% reduction of pain symptoms lasting approximately 3 months. She reports that her neck pain is much better. She denies any recent injuries and denies bowel or bladder dysfunction or saddle paresthesia type symptoms. She currently uses ibuprofen and Robaxin and has been going to massage therapy. Previous conservative treatments and evaluations include the following: She went to [facility] April 2021 and had dry needle therapy and physical therapy which she stopped due to increasing pain. She has tried home cervical spine range of motion exercises. April 2021-- she went to Dr. Mars, chiropractor at [facility] with no reduction of pain symptoms. She [...] to get herself up and walk. 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 Assessment: Diagnosis Plan 1. Myalgia, other site Trigger Point Injection 2. Chronic bilateral low back pain with bilateral sciatica 3. Lumbar facet arthropathy, multilevel mild/moderate 4. DDD (degenerative disc disease), lumbar, multilevel moderate L3-L4, L4-L5 5. Anterolisthesis of lumbar spine-mild L1 on L2, L2 on L3 and L3 on L4 6. Ischiogluteal bursitis, right Large Joint (Hip, Knee, Shoulder) Injection: R ischiogluteal bursa Plan: Since her pain symptoms are more prominent to the right gluteal, right leg pain symptoms and much reduced to the neck--today we agreed to just work predominantly on her lumbar pain, right leg pain symptoms. For her lumbar pain, right leg pain symptoms--today I gave Veronica cortisone trigger point injectionsusing 2 mL 1% lidocaine without epi and 40 mg triamcinolone to the right lower lumbar paraspinal muscle region near L3-L4, L4- L5 as well as cortisone trigger point injections using 2 mL 1% lidocaine without epi and 40 mg triamcinolone to the right piriformis muscle region and the right ischial gluteal region where there were focal areas of hyperirritability with palpation. Today her neck pain does not seem to be bothering her and I have recommended that she do daily neckrange of motion exercises. Today I also discussed with Veronica, her BMI 46.59. She will continue to work on weight reduction. She has a follow-up appointment scheduled with me on February 26, 2023 for further evaluation of her chronic neck pain, chronic lumbar/right leg pain symptoms. Imaging Reviewed: Lumbar spine x-ray [...] There is preservation of vertebral body height. Lqxd-um-xkrkestm multilevel degenerativeendplate change. Mogt-kd-nbvqlcgd facet arthropathy mid through lower lumbar spine. [...] can be obtained as clinically indicated. Multilevel soxg-fk-svwlwstk endplate degenerative changes with marginal spur formation. [...] indents the ventral cord. Thickened ligamentum flavum. Ggil-dr-znicuxdw spinal canal stenosis. Uncovertebral spurring and facet arthropathy with mild right and fckk-sq-osjjonmt left neural foraminal narrowing. C7-T1: Anterolisthesis of C7 on T1 with unroofing of the disc. No significant spinal canal or neural foraminal narrowing. UPPER THORACIC: Incompletely imaged. No high-grade spinal canal stenosis. IMPRESSION: Multilevel wkzs-gj-iwnmhual cervical spondylotic changes as described. Spinal canal [...] Yes Indications: Pain Procedure Details: Location: R lumbar paraspinal and R piriformis Local anesthetic: Ethyl chloride spray Ultrasound guidance: No Needle size: 22 G Number of muscles: 3 or more Approach: Posterior 6 mL lidocaine 10 mg/mL (1 %); 120 mg triamcinolone 40 mg/mL Patient tolerance: Patient tolerated the procedure well with no immediate complications Large Joint (Hip, Knee, Shoulder) Injection: R ischiogluteal bursa Performed by: Valentina Curtis NP Authorized by: Valentina Curtis NP Large Joint Injection/Aspiration: Consent Given by: Patient Site marked: the procedure site was marked Timeout: prior to procedure the correct patient, procedure, and site was verified Verbal consent obtained: Yes Supporting Documentation: Indications: Pain Procedure Details: Location: Hip Site: R ischiogluteal bursa Prep: patient was prepped using a clean technique Needle Size: 22 G Approach: Posterior Ultrasound guided: No Fluroscopic guidance: No Medications Right Large Joint Injection: 2 mL lidocaine 10 mg/mL (1 %); 40 mg triamcinolone 40 mg/mL Examination: Ortho Exam Lumbar spine exam: Inspection of the lumbar spine shows normal alignment, no lumbar surgical scars, no skin defects, no muscle atrophy, no masses, and no rashes. Palpation: No pain with palpation over the thoracic or lumbar spinous process pain region. There istenderness with palpation predominantly of the right lower lumbar paraspinal muscle region greatestat L-3, L-4 and L-5. There is pain with palpation to the right piriformis muscle and the right ischial gluteal region. Referred pain to the right piriformis, right ischioluteal region Straight leg raise produces negative radicular [...] palpation over the cervical spinous process region. Range of motion with flexion is 50??, [...] to the fifth finger, and exhibit full slide maker strength Perfusion: 2+ radial and ulnar pulses. Fingers warm to touch with capillary refill < 2 seconds. General Appearance: Well-nourished, in no acute distress. BMI 46.59. Neck: Neck supple. See cervical spine exam above. Skin No presence of erythema or ecchymosis. No presence of skin excoriation or rashes, good turgor,warm and dry, no suspicious lesions Heart:Regular rate Lungs: Unlabored breathing Abdomen: Soft,no guarding Neurological: Alert and oriented. She walks independently with no assisted devices. Psych: Cooperative with exam Allergies: Trazodone Medications: Current Outpatient Medications: buPROPion SR (WELLBUTRIN SR) 150 mg 12 hr tablet, Take 1 tablet (150 mg total) by mouth 2 (two) times a day, Disp: , Rfl: diclofenac sodium (VOLTAREN) 1 [...] Rx: Probiotic - Capsule, Disp: , Rfl: Larissia 0.1-20 mg-mcg per tablet, , Disp: , Rfl: lisinopril (PRINIVIL,ZESTRIL) [...] total) by mouth nightly, Disp:, Rfl: 1 Mimvey 1-0.5 mg per tablet, Take 1 tablet by mouth daily, Disp: , Rfl: multivitamin tablet, Take 1 tablet by mouth every morning, Disp: , Rfl: NOT IN DATABASE, PRESCRIPTION,, Spark Zinc and Selenium supplement for thyroid, Disp: , Rfl: ondansetron (ZOFRAN) 4 mg tablet, Take 1 tablet (4 mg total) by mouth every 6 (six) hours as neededfor nausea or vomiting., Disp: 15 tablet, Rfl: 1 oxyCODONE (ROXICODONE) 5 mg immediate release tablet, Take 1 tablet (5 mg total) by mouth every 4 (four) hours as needed for pain., Disp: 20 tablet, Rfl: [address] (PROTONIX) 20 mg EC tablet, 1 tablet (20 mg total), Disp: , Rfl: sennosides (Laxative Maximum Strength) 25 mg tablet, 25 mg daily, Disp: , Rfl: simethicone (MYLICON) 80 mg chewable tablet, 1 tablet (80 mg total) 4 (four) times a day, Disp: , Rfl: venlafaxine XR (EFFEXOR-XR) 75 mg 24 hr capsule, Take 3 capsules (225 mg total) by mouth nightly, Disp: , Rfl: VENTOLIN HFA 90 mcg/actuation inhaler, TAKE 2 PUFFS BY MOUTH EVERY 4 HOURS NEEDED FOR WHEEZING, Disp: , Rfl: 1 vit A,C and S-khevrm-mcevtyea (OCUVITE with LUTEIN) 1,000 unit-200 mg-60 unit-2 mg tablet, Take 1 tablet by mouth daily, Disp: , Rfl: zolpidem (AMBIEN) 10 mg tablet, TAKE 1 TABLET BY MOUTH AT BEDTIME NEEDED, Disp: , Rfl: 1 acetaminophen-codeine (TYLENOL with CODEINE #3) 300-30 mg per tablet, , Disp: , Rfl: amLODIPine (NORVASC) 5 mg tablet, Take 5 mg by mouth. (Patient not taking: Reported on 09/14/2021), Disp: , Rfl: aspirin 81 mg chewable tablet, 81 mg daily (Patient not taking: Reported on 08/23/2021), Disp: , Rfl: cholecalciferol (VITAMIN D-3) 5,000 unit capsule, Take 5,000 Units by mouth every morning (Patient not taking: Reported on 07/12/2022), Disp: , Rfl: cyclobenzaprine (FLEXERIL) 10 mg tablet, TAKE 1 TABLET BY MOUTH THREE TIMES A DAY NEEDED FOR MUSCLE SPASM (Patient not taking: Reported on 08/17/2022), Disp: , Rfl: gabapentin (NEURONTIN) 100 mg capsule, TAKE 1 CAPSULE BY MOUTH THREE TIMES A DAY (Patient not taking: Reported on 08/17/2022), Disp: 90 capsule, Rfl: 0 glucosamine/chondr hernadez A sod (OSTEO BI-FLEX ORAL), Take 1 tablet by mouth every morning (Patient nottaking: Reported on 08/17/2022), Disp: , Rfl: Past Medical History: Past [...] No Sexual activity: None Alcohol Use: Not on file Vital Signs: Height 165.1 cm (5' 5), weight 127 kg (280 lb), not currently . BMI Readings from Last 1 Encounters: 11/20/22 46.59 kg/m?? Valentina Curtis NP documented in this encounter Plan of Treatment Not on file documented as of this encounter Procedures Procedure Name Priority Date/Time Associated Diagnosis Comments ME ARTHROCENTESIS ASPIR&/INJ MAJOR JT/BURSA W/O US Routine 11/20/2022 9:00 AM CDT Ischiogluteal bursitis, right ME INJECTION SINGLE/FOOD SAFETY MANAGER TRIGGER POINT 3/> MUSCLES Routine 11/20/2022 9:00 AM CDT Myalgia, other site documented in this encounter Results * ME ARTHROCENTESIS ASPIR&/INJ MAJOR JT/BURSA W/O US (11/20/2022 9:00 AM CDT) Narrative Valentina Curtis NP - 11/20/2022 9:00 AM CDT Valentina Curtis NP ? 11/20/2022 ??5:09 PM Large Joint (Hip, Knee, Shoulder) Injection: R ischiogluteal bursa Performed by: Valentina Curtis NP Authorized by: Valentina Curtis NP ?? Large Joint Injection/Aspiration: ??Consent Given by: ??Patient ??Site marked: the procedure site was marked ?Timeout: prior to procedure the correct patient, procedure, and site was verified ?Verbal consent obtained: Yes ?? Supporting Documentation: ??Indications: ??Pain Procedure Details: ??Location: ??Hip ??Site: ??R ischiogluteal bursa ??Prep: patient was prepped using a clean technique ?Needle Size: ??22 G ??Approach: ??Posterior ??Ultrasound guided: No ?Fluroscopic guidance: No ?Medications Right Large Joint Injection: ??2 mL lidocaine 10 mg/mL (1 %); 40 mg triamcinolone 40 mg/mL us Valentina Curtis NP IN CLINIC/BEDSIDE ORDERABLE S Final Result * ME INJECTION SINGLE/FOOD SAFETY MANAGER TRIGGER POINT 3/> MUSCLES (11/20/2022 9:00 AM CDT) Narrative Valentina Curtis NP - 11/20/2022 9:00 AM CDT Valentina Curtis NP ? 11/20/2022 ??5:09 PM Trigger Point Injection Performed by: Valentina [...] Yes ?Indications: ??Pain Procedure Details: ??Location: ??R lumbar paraspinal and R piriformis ??Local anesthetic: ??Ethyl chloride spray ??Ultrasound guidance: No ?Needle size: ??22 G ??Number of muscles: ??3 or more ??Approach: ??Posterior ?? 6 mL lidocaine 10 mg/mL (1 %); 120 mg triamcinolone 40 mg/mL ??Patient tolerance: ??Patient tolerated the procedure well with no immediate complications us Valentina Curtis PERIPHERAL EDP EQUIPMENT OPERATOR IN CLINIC/BEDSIDE ORDERABLE S Final Result documented in this encounter Visit Diagnoses Diagnosis Myalgia, other site- Primary Chronic bilateral low back pain with bilateral sciatica Lumbar facet arthropathy, multilevel mild/moderate Spondylosis of unspecified site without mention of myelopathy DDD (degenerative disc disease), lumbar, multilevel moderate L3-L4, L4-L5 Degeneration of lumbar or lumbosacral intervertebral disc Anterolisthesis of lumbar spine-mild L1 on L2, L2 on L3 and L3 on L4 Ischiogluteal bursitis, right documented in this encounter Administered Medications Inactive Administered Medications - up to 3 most recent administrations Medication Order MAR Action Action Date Dose Rate Site lidocaine (XYLOCAINE) 10 mg/mL (1 %) injection 2 mL 2 mL, One-Time Injection, Starting on Sun11/20/22 at 0954, For 1 dose, Indications: Administration of Local AnesthesiaIndications:Administ ration of Local Anesthesia Given 11/20/2022 9:54 AM CDT 2 mL Right Hip lidocaine (XYLOCAINE) 10 mg/mL (1 %) injection 6 mL 6 mL, One-Time Injection, Starting on Sun11/20/22 at 0953, For 1 dose, Indications: Administration of Local AnesthesiaIndications:Administ ration of Local Anesthesia Given 11/20/2022 9:53 AM CDT 6 mL triamcinolone (KENALOG) 40 mg/mL injection 120 mg 120 mg, One-Time Injection, Starting on Sun11/20/22 at 0953, For 1 doseIndications:Myalgia, other site Given 11/20/2022 9:53 AM CDT 120 mg triamcinolone (KENALOG) 40 mg/mL injection 40 mg 40 mg, One-Time Injection, Starting on Sun11/20/22 at 0954, For 1 doseIndications:Ischiogluteal bursitis, right Given 11/20/2022 9:54 AM CDT 40 mg Ri ght Hip documented in this encounter Care Teams Date Puller Relationship Specialty Start Date End Date Keyonna Armstrong PA PCP - General Nurse Practitioner 06/20/18 Gasper Ochoa MD [address] [facility] [place] [address] Consulting Physician Pain Management 08/31/21 documented as of this encounter
--- OUTSIDE RECORDS SUMMARY | 2024-07-10 23:17 | XMS_ITS | Encounter Summary ---
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 Gender Identity Not on file Sexual Orientation Not on file 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 Not on file Not on leeann e documented as of this encounter Miscellaneous Notes * Telephone Encounter - Nelsy Bolden MA - 03/14/2022 9:56 AM CDT Lvm advising patient to call back to cancel/reschedule upcoming appt for neck injections due to CMGnot doing neck injections,advised we can refer to pain management or she can see her primary documented in this encounter Plan of Treatment Not on file documented as of this encounter Visit Diagnoses Not on filedocumented in this encounter Care Teams Hot Plate Press Operator Relationship Specialty Start Date End Date Keyonna Armstrong PA PCP - General Nurse Practitioner 06/20/18 Gasper Ochoa MD [address] [facility] [place] [address] Consulting Physician Pain Management 08/31/21 documented as of this encounter
--- OUTSIDE RECORDS SUMMARY | 2024-07-10 23:17 | XMS_ITS | Encounter Summary ---
Author Organization [facility] Healthcare Address [address] [place] [address] Care Team Providers Care Travel Counselor Name Role Phone Keyonna Armstrong Primary Care Provider + Gasper Ochoa MD Unavailable Reason for Referral * Diagnostic Imaging (Routine) - Closed Specialty Diagnoses / Procedures Referred By Contac t Referred To Contact Diagnoses Chronic right-sided thoracic back pain Procedures XR Spine Thoracic 3 View Valentina Curtis NP [facility] [address] [place] [address] [place] [address] Phone: tel: fax: [address] [phone] Referral ID Status Reason Start Date Expiration Date Visits Re quested Visits Authorized [id number] Closed 10/13/2021 11/12/2022 1 1 Reason for Visit * Diagnostic Imaging (Routine) - Closed Specialty Diagnoses / Procedures Referred By Contac t Referred To Contact Diagnoses Chronic right-sided thoracic back pain Procedures XR Spine Thoracic 3 View Valentina Curtis NP [facility] [address] [place] [address] [place] [address] Phone: tel: fax: [address] [phone] Referral ID Status Reason Start Date Expiration Date Visits Re quested Visits Authorized [id number] Closed 10/13/2021 11/12/2022 1 1 Encounter Details Date Type Department Care Team (Latest Contact Info) Description 10/13/2021 3:15 PM CDT - 10/13/2021 11:59 PM CDT Hospital Encounter [facility] [address] [place] [address] Chronic right-sided thoracic back pain Discharge Disposition: Discharge to home or self care Social History Tobacco Use Types Packs/Day Years [...] on file 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 Gender Identity Not on file Sexual Orientation Not on file 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 file Not on file Not on leeann e documented as of this encounter Medications at Time of Discharge buPROPion SR (WELLBUTRIN SR) 150 mg 12 hr tablet Take 1 tablet (150 mg total) by mouth 2 (two) times a day 08/25/2019 hydroCHLOROthiazi de (HYDRODIURIL) 25 mg tablet Take 1 tablet (25 mg total) by mouth every morning 0 05/02/2018 ibuprofen (ADVIL,MOTRIN) 800 mg tablet 09/03/2018 lisinopril (PRINIVIL,ZESTRIL ) 40 mg tablet Take 0.5 tablets (20 mg total) by mouth every morning 0 04/02/2018 LORazepam (ATIVAN) 1 mg tablet Take 0.5 tablets (0.5 mg total) by mouth every 8 (eight) hours as needed for anxiety 05/25/2021 metFORMIN (GLUCOPHAGE) 500 mg tablet Take 3 tablets (1,500 mg total) by mouth daily 3 tabs in evening for 1500 mg dose 1 05/31/2018 metoprolol XL (TOPROL-XL) 100 mg 24 hr tablet Take 2 tablets (200 mg total) by mouth nightly 1 04/12/2018 multivitamin tablet Take 1 tablet by mouth every morning pantoprazole DR (PROTONIX) 20 mg EC tablet 1 tablet (20 mg total) 05/09/2021 sennosides (Laxative Maximum Strength) 25 mg tablet 25 mg daily venlafaxine XR (EFFEXOR-XR) 75 mg 24 hr capsule Take 3 capsules (225 mg total) by mouth daily zolpidem (AMBIEN) 10 mg tablet TAKE 1 TABLET BY MOUTH AT BEDTIME NEEDED 1 06/03/2018 acetaminophen-cod eine (TYLENOL with CODEINE #3) 300-30 mg per tablet 04/18/2021 3 amLODIPine (NORVASC) 5 mg tablet Take 5 mg by mouth. 09/03/2018 3 aspirin 81 mg chewable tablet 81 mg daily 05/28/20 2 3 cholecalciferol (VITAMIN D-3) 5,000 unit capsule Take 5,000 Units by mouth every morning 3 diclofenac sodium (VOLTAREN) 1 % gel Apply 4 g topically 4 (four) times a day 05/25/2021 4 fluticasone propionate (FLONASE) 50 mcg/actuation nasal spray SPRAY 1 SPRAY INTO EACH NOSTRIL EVERY DAY 01/03/2021 4 glucosamine/chond r hernadez A sod (OSTEO BI-FLEX ORAL) Take 1 tablet by mouth every morning 3 Lactobacillus acidophilus (Probiotic) 10 billion cell capsule Rx: Probiotic - Capsule 4 [place] 0.1-20 mg-mcg per tablet 04/15/2021 02 4 NOT IN DATABASE, PRESCRIPTION, Spark Zinc and Selenium supplement for thyroid 4 ondansetron (ZOFRAN) 4 mg tablet Take 1 tablet (4 mg total) by mouth every 6 (six) hours as needed for nausea or vomiting. 15 tablet 1 08/07/2018 4 oxyCODONE (ROXICODONE) 5 mg immediate release tabletIndications :Pain Take 1 tablet (5 mg total) by mouth every 4 (four) hours as needed for pain. 20 tablet 08/09/2018 3 simethicone (MYLICON) 80 mg chewable tablet 1 tablet (80 mg total) 4 (four) times a day 4 tiZANidine (ZANAFLEX) 4 mg tablet Take 1 tablet PO HS PRN 30 tablet 10/13/2021 2 VENTOLIN HFA 90 mcg/actuation inhaler TAKE 2 PUFFS BY MOUTH EVERY 4 HOURS NEEDED FOR WHEEZING 1 06/10/2018 4 vit A,C and U-lopzvd-yivqbqxg (OCUVITE with LUTEIN) 1,000 unit-200 mg-60 unit-2 mg tabletIndications :Vitamin Deficiency Prevention Take 1 tablet by mouth daily 4 documented as of this encounter Discharge Disposition Disposition Code Departure Means Destination Discharge to home or self care documented in this encounter Plan of Treatment Not on file documented as of this encounter Procedures Procedure Name Priority Date/Time Associated Diagnosis Comments XR SPINE THORACIC 3 VIEWS Schedule Routine, Read Routine (OP Routine) 10/13/2021 3:26 PM CDT Chronic right-sided thoracic back pain documented in this encounter Results * XR Spine Thoracic 3 View (10/13/2021 3:26 PM CDT) Anatomical Region Laterality Modality Spine N/A Computed Radiogr aphy 10/14/2021 8:16 AM CDT Narrative 10/14/2021 8:17 AM CDT EXAM DESCRIPTION: ?? XR SPINE THORACIC 3 VIEWS REASON FOR STUDY: ?? right upper thoracic back pain ?? Neck and upper back pain for 6 months, no injury ?? TECHNIQUE: ??Three views COMPARISON: ??None available FINDINGS: 12 rib-bearing thoracic type vertebra. ??No hemivertebra formation. No compression deformity. Moderate endplate degenerative changes throughout most notable in the midthoracic region with sclerosis and spur formation. Paravertebral soft tissues demonstrate no acute findings. IMPRESSION: Moderate degenerative changes thoracic spine without acute findings. THIS IS AN ELECTRONICALLY VERIFIED FINAL REPORT 10/14/2021 8:17 AM - Electronically signed by ??Emory CONTE D: ??10/14/2021 8:17 AM T: Report ID: [id number] Reading Location: ??[id number] Procedure Note Emory Fisher MD - 10/14/2021 EXAM DESCRIPTION: XR SPINE THORACIC 3 VIEWS REASON FOR STUDY: right upper thoracic back pain Neck and upper back pain for 6 months, no injury TECHNIQUE: Three views COMPARISON: None available FINDINGS: 12 rib-bearing thoracic type vertebra. No hemivertebra formation. No compression deformity. Moderate endplate degenerative changes throughout most notable in the midthoracic region with sclerosis and spur formation. Paravertebral soft tissues demonstrate no acute findings. IMPRESSION: Moderate degenerative changes thoracic spine without acute findings. THIS IS AN ELECTRONICALLY VERIFIED FINAL REPORT 10/14/2021 8:17 AM - Electronically signed by Emory Fisher M.D. 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
--- OUTSIDE RECORDS SUMMARY | 2024-07-10 23:17 | XMS_ITS | Encounter Summary ---
Author Organization [facility] Healthcare Address [address] [place] [address] Care Team Providers Care Correctional Agency Director Name Role Phone Keyonna Armstrong Primary Care Provider + Gasper Ochoa MD Unavailable Reason for Visit * Reason Onset Date Comments Medication Request 10/25/2023 Encounter Details Date Type Department Care Team (Late st Contact Info) Description 10/25/2023 Telephone [facility] Family Medicine at [address] [phone] Mark Wheat MD [address] [place] [phone] Medication Request Social History Tobacco Use Types [...] on file 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 Gender Identity Not on file Sexual Orientation Not on file 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 * Telephone Encounter - Kelsey Parekh - 10/25/2023 9:28 AM CDT Medication Question/Clarification Medication Name(s): tirzepatide (Mounjaro) 7.5 mg/0.5 mL pen injector What is the question or clarification needed? States that she cannot tell a difference between taking the 5 mg and the 7.5 mg. She is thinking that it needs to be increases. She has been taking the 7.5 mg for several weeks. If needed, Pharmacy(s) medication(s) should be sent to: [facility]/pharmacy #[id number] Additional Comments: none Does message need to be routed? Yes-Action Needed documented in this encounter Plan of Treatment Not on file documented as of this encounter Visit Diagnoses Not on filedocumented in this encounter Discontinued Medications Medication Sig Discontinue Reason Start Date End Da te tirzepatide (Mounjaro) 5 mg/0.5 mL pen injector INJECT 5 MG SUBCUTANEOUSLY EVERY 7 DAYS 08/13/2023 10/25/2023 tirzepatide (Mounjaro) 7.5 mg/0.5 mL pen injectorIndications:C ontrolled type 2 diabetes mellitus without complication, without long-term current use of insulin ([facility]) (HCC),Abnormal weight gain,Class 3 severe obesity due to excess calories without serious comorbidity with body mass index (BMI) of 45.0 to 49.9 in adult ([facility]) Inject 7.5 mg under the skin every 7 days 08/28/2023 10/25/2023 documented as of this encounter Care Teams Correctional Agency Director Relationship Specialty Start Date End Date Keyonna Armstrong PA PCP - General Nurse Practitioner 06/20/18 Gasper Ochoa MD [address] [facility] [place] [address] Consulting Physician Pain Management 08/31/21 documented as of this encounter
--- OUTSIDE RECORDS SUMMARY | 2024-07-10 23:17 | XMS_ITS | Data Portability ---
Author Organization Didi[facility] , [facility] Address [address] [place] [address] Assessment No assessment recorded. Plan of Treatment Reminders Order Date Submit Date Provider Last Modified By Organization Details Last Modified Time Details Appointments None recorded. Lab FSH (follicle- stimulatin g hormone), serum 2021 022 [facility], [address] [place], [address], 2 06:47:59 estradiol, serum 2021 022 [facility], [address] [place], [address], 2 06:48:00 TSH, serum or plasma 2021 022 [facility], [address] [place], [address], 2 06:48:00 FSH (follicle- stimulatin g hormone), serum 2023 024 [facility], [address] [place], [address], 4 09:35:47 estradiol, serum 2023 024 [facility], [address] [place], [address], 4 09:35:47 testostero ne, free + total, serum 2023 024 [facility], [address] [facility], [place], [address], 4 09:35:48 HPV E6+E7 mRNA, qualitativ e PCR, cervix 2023 [facility], [address] [place], [address], 4 10:11:54 pap, LB 2023 024 [facility], [address] [facility], [place], [address], 4 09:35:46 Referral None recorded. Procedures None recorded. Surgeries None recorded. Imaging MAMMO, screening, digital, bilateral 2023 [facility], [address] Ryan [place], [address], [address], 4 11:20:32 Medication Orders Mimvey 1 mg-0.5 mg tablet 2021 022 [id number], [address] [place], [address], 4 11:44:16 Lyllana 0.05 mg/24 hr transderma l patch 2023 024 [email or web address] [id number], [address] [place], [address], 4 07:04:51 progestero ne micronized 200 mg capsule 2023 024 [id number], [address] [place], [address], 4 14:41:31 Patient TargetsNo targets recorded. Patient Instructions Encounter Date Encounter Id Patient Instructions Last Modified By Organization Details Last Modified Time 08/25/2023 [id number] eating healthy foods: care instructions [place] [id number] Not available 08/25/2023 14:38:54 general health care education Not available 08/25/2023 14:38:53 body mass index: care instructions Not available 08/25/2023 14:38:54 mammogram: about this test Not available 08/25/2023 14:38:54 Reason for Referral None Reported. Results Created Date Observation Date Name Description Value Unit Range Abnormal Flag Note LastModifiedBy Organization Detail LastModifiedTime 08/28/2023 HPV HIGH RISK HPV high risk Negati ve negati ve normal The HPV High Risk assay is inten ded for use as co-te sting with cytol ogy and not as a subst itute for regul ar cervi derrick cytol ogy scree marce. This assay is not inten ded for use as a scree marce devic e for women under age 30 with jose juan l cervi derrick cytol ogy. Not Available [address], [address], 08/29/2023 10:11:54 08/30/2023 THINP REP TIS PAP clinical information: NONE GIVEN Not Available [facility] [address], [address], 08/30/2023 09:35:46 08/30/2023 THINP REP TIS PAP LMP: NONE GIVEN Not Available [facility] [address] [place], [address], 08/30/2023 09:35:46 08/30/2023 THINP REP TIS PAP prev. Pap: NONE GIVEN Not Available [facility] [address] [place], [address], 08/30/2023 09:35:46 08/30/2023 THINP REP TIS PAP prev. BX: NONE GIVEN Not Available [facility] [employer] [address], [address], 08/30/2023 09:35:46 08/30/2023 THINP REP TIS PAP source: NONE GIVEN Not Available [facility] [employer] [address] [place], [address], 08/30/2023 09:35:46 08/30/2023 THINP REP TIS PAP report status: TNP TEST( S) NOT PERFO RMED: REPOR T STATU S: STATE MENT OF ADEQU ACY: GENER AL CATEG ORIZA TION: INTER PRETA TION/ RESUL T: INFEC TION: COMME NT: CYTOT ECHNO LOGIS T: REVIE W CYTOT ECHNO LOGIS T: PATHO LOGIS T: TEST NOT PERFO RMED No suita ble speci men recei magaly. Pleas e revie w the test requi remen ts at testd irect ory.q uestd iagno [email or web address] Not Available [employer] [address] [place], [address], 08/30/2023 09:35:46 08/30/2023 FSH FSH 53.5 mIU/m L normal Refer ence Range Folli cular Phase 2.5-1 0.2 Mid-c ycle Peak 3.1-1 7.7 Lutea l Phase 1.5- 9.1 Postm enopa usal 23.0- 116.3 Not Available [employer] [address] [place], [address], 08/30/2023 09:35:47 08/30/2023 ESTRA DIOL estradiol 34 pg/mL normal Refer ence Range Folli cular Phase : 19-14 4 Mid-C ycle: 64-35 7 Lutea l Phase : 56-21 4 Postm enopa usal: < or = 31 Refer ence range estab lishe d on post- puber vani patie nt popul ation . No pre-p ubert al refer ence range estab lishe d using this assay . For any patie nts for whom low Estra diol level s are antic ipate d (e.g. males , pre-p ubert al child fawad and hypog onada l/pos t-men opaus al femal es), the [facility] t[facility] Estra diol, Ultra sensi tive, LCMSM S assay is recom rj d (orde r code 77723 ). Carmen [place]inton note: patie nts being treat ed with the drug fulve stran t (Fasl odex( R)) have demon strat ed signi fican t inter feren ce in immun oassa y metho ds for estra diol measu remen t. The cross react ivity could lead to false ly eleva mario estra diol test resul ts leadi ng to an inapp ropri ate clini derrick asses sment of estro gen statu s. [facility] order code [id number] -Estr adiol , Ultra sensi tive LC/MS /MS demon strat es negli gible cross react ivity with fulve stran t. Not Available [facility] [address] [place], [address], 08/30/2023 09:35:47 08/30/2023 TESTO STERO NE, FREE (DIAL YSIS) AND TOTAL ,MS testosterone , total, MS 9 NG/dL 2-45 For addit ional infor carmen verma refer to https ://ed ucati on.qu [employer] Protect/f aq/FA Q165 (This link is being provi ded for infor sam nal/e ducat ional purpo ses only. ) (Note ) This test was devel oped and its solo tical perfo rmanc e denzel cteri stics have been deter mined by [employer]. It has not been clear ed or appro magaly by the FDA. This assay has been valid ated pursu ant to the CLIA regul ation s and is used for clini derrick purpo ses. Not Available [employer] [address] [place], [address], 08/30/2023 09:35:48 08/30/2023 TESTO STERO NE, FREE (DIAL YSIS) AND TOTAL ,MS testosterone , free 0.6 pg/mL 0.1-6. 4 (Note ) This test was devel oped and its solo tical perfo rmanc e denzel cteri stics have been deter mined by [employer]. It has not been clear ed or appro magaly by the FDA. This assay has been valid ated pursu ant to the CLIA regul ation s and is used for clini derrick purpo ses. MARIANELA med fusio n [address] [facility] [address] [place] [address] [phone] Nawaf barker MD NO COLLE CTION DATE RECEI MAGALY. WE HAVE USED THE DATE THE SPECI MEN WAS RECEI MAGALY BY THIS LABOR ATORY THE COLLE CTION DATE. IF THIS IS INCOR RECT, PLEAS E CONTA CT CLIEN T SERVI EDSON. PHONE NUMBE R: [phone] Not Available [address], [address], 08/30/2023 09:35:48 09/05/2023 THINP REP TIS PAP clinical information: normal None given Not Available [address], [address], 09/05/2023 08:38:58 09/05/2023 THINP REP TIS PAP LMP: normal NONE GIVEN Not Available [address], [address], 09/05/2023 08:38:58 09/05/2023 THINP REP TIS PAP prev. Pap: normal NONE GIVEN Not Available [address], [address], 09/05/2023 08:38:58 09/05/2023 THINP REP TIS PAP prev. BX: normal NONE GIVEN Not Available [facility] [address], [address], 09/05/2023 08:38:58 09/05/2023 THINP REP TIS PAP source: normal Cervi x Not Available [address], [address], 09/05/2023 08:38:58 09/05/2023 THINP REP TIS PAP statement of adequacy: normal Satis facto ry for evalu ation . Endoc ervic al/tr ansfo rmati on zone compo nent absen t. Not Available [address], [place], [address], 09/05/2023 08:38:58 09/05/2023 THINP REP TIS PAP interpretati on/result: normal Cytol ogy Resul ts: Negat mitzy for intra epith elial lesio n or malig fredo . Not Available [facility] [address], [place], [address], 09/05/2023 08:38:58 09/05/2023 THINP REP TIS PAP comment: normal This Pap test has been evalu ated with compu ter sandoval mario techn ology . Not Available [address], [place], [address], 09/05/2023 08:38:58 09/05/2023 THINP REP TIS PAP cytotechnolo gist: normal SXW, CT( CP) CT Scree marce Locat ion: [facility] [place] [address] [place] [place] [address] Not Available [address], [place], [address], 09/05/2023 08:38:58 09/05/2023 THINP REP TIS PAP comment EXPLA NATOR Y NOTE: The Pap is a scree marce test for cervi derrick cance r. It is not a diagn ostic test and is subje ct to false negat mitzy and false posit mitzy resul ts. It is most relia ble when a satis facto ry sampl e, regul vishal obtai marco a, is submi tted with relev ant clini derrick findi ngs and histo ry, and when the Pap resul t is evalu ated along with histo joaquín and curre nt clini derrick infor matio n. NO COLLE CTION DATE RECEI MAGALY. WE HAVE USED THE DATE THE SPECI MEN WAS RECEI MAGALY BY THIS LABOR ATORY THE COLLE CTION DATE. IF THIS IS INCOR RECT, CARMEN [place] CONTA CT CLIEN T SERVI EDSON. PHONE NUMBE R: [phone] Not Available [employer] [address] [place], [address], 09/05/2023 08:38:58 02/23/20 22 02/23/2022 FSH FSH 47.7 mIU/m L normal Refer ence Range Folli cular Phase 2.5-1 0.2 Mid-c ycle Peak 3.1-1 7.7 Lutea l Phase 1.5- 9.1 Postm enopa usal 23.0- 116.3 Not Available [employer] [address] , [place], [address], 02/23/2022 06:47:59 02/23/20 22 02/23/2022 ESTRA DIOL estradiol <15 pg/mL normal Refer ence Range Folli cular Phase : 19-14 4 Mid-C ycle: 64-35 7 Lutea l Phase : 56-21 4 Postm enopa usal: < or = 31 Refer ence range estab lishe d on post- puber vani patie nt popul ation . No pre-p ubert al refer ence range estab lishe d using this assay . For any patie nts for whom low Estra diol level s are antic ipate d (e.g. males , pre-p ubert al child fawad and hypog onada l/pos t-men opaus al femal es), the [facility] t[facility] Estra diol, Ultra sensi tive, LCMSM S assay is recom rj d (orde r code [id number] ). Carmen clinton note: patie nts being treat ed with the drug fulve stran t (Fasl odex( R)) have demon strat ed signi fican t inter feren ce in immun oassa y metho ds for estra diol measu remen t. The cross react ivity could lead to false ly eleva mario estra diol test resul ts leadi ng to an inapp ropri ate clini derrick asses sment of estro gen statu s. [facility] order code [id number] -Estr adiol , Ultra sensi tive LC/MS /MS demon strat es negli gible cross react ivity with fulve stran t. Not Available [facility] [address] [place], [address], 02/23/2022 06:48:00 02/23/20 22 02/23/2022 TSH W/REF AMAN TO FT4 TSH w/reflex to FT4 0.69 mIU/L normal Refer ence Range > or = 20 Years 0.40- 4.50 Pregn michelle Range s First trime ster 0.26- 2.66 Secon d trime ster 0.55- 2.73 Third trime ster 0.43- 2.91 Not Available [facility] [address] [place], [address], 02/23/2022 06:48:00 03/22/20 24 03/23/2024 ESTRA DIOL estradiol 17 pg/mL normal Refer ence Range Folli cular Phase : 19-14 4 Mid-C ycle: 64-35 7 Lutea l Phase : 56-21 4 Postm enopa usal: < or = 31 Refer ence range estab lishe d on post- puber vani patie nt popul ation . No pre-p ubert al refer ence range estab lishe d using this assay . For any patie nts for whom low Estra diol level s are antic ipate d (e.g. males , pre-p ubert al child fawad and hypog onada l/pos t-men opaus al femal es), the [facility] t[facility] Estra diol, Ultra sensi tive, LCMSM S assay is recom rj d (orde r code [id number] ). Plebhavna e note: patie nts being treat ed with the drug fulve stran t (Fasl odex( R)) have demon strat ed signi fican t inter feren ce in immun oassa y metho ds for estra diol measu remen t. The cross react ivity could lead to false ly eleva mario estra diol test resul ts leadi ng to an inapp ropri ate clini derrick asses sment of estro gen statu s. [facility] order code [id number] -Estr adiol , Ultra sensi tive LC/MS /MS demrebecca rodriguezi gible cross react ivity with triston daniel t. Not Available [employer] [address] [place], [address], 03/23/2024 07:35:33 Result Notes None recorded. Problems Name Problem SNOMED Code Status Onset Date Resolution Date Notes Provider Name and Address Organization Details Recorded Time Obesity 692816957 Active 2020 Leah Juárez null, [employer] [facility] IV 2 15:05:21 Severe obesity [id number] 04 Active 2020 Morbid (severe) obesity due to excess calories; Progress: Stable Added By: Linda Colindres Add to Current Problems: YES ProblemSta tus: Current Leah Juárez null, [employer] [facility] IV 2 15:05:21 Problem Notes None recorded. Procedures Surgical History Date Name Laterality Status Provider Name and Address Organization Details Recorded Time 08/28/19 24 Date of Last Pap Smear completed Linda Colindres MD [address] [place] [address], [phone], [facility] [email or web address] [facility] IV 09/06/2023 02:10:19 08/13/19 22 Most Recent Mammogram completed [facility] [email or web address] [facility] IV 08/25/2023 13:38:12 07/29/19 22 Vulvar Biopsy cancelled Linda Colindres MD [address] [place] [address], [phone], [employer] 06/20/2021 00:29:24 01/12/20 20 Date of Last Colonoscopy completed Linda Colindres MD [address] [place] [address], [phone], [facility] [email or web address] [facility] IV 08/24/2023 16:07:32 08/13/18 90 Most Recent Bone Density completed [facility] [employer] [facility] IV 08/25/2023 13:38:12 Gall bladder completed Keyonna Pacheco [facility] [employer] IV 08/25/2023 13:38:29 Gastric bypass for obesity completed Linda Colindres MD [address] [place] [address], [phone], [facility] [email or web address] [facility] IV 08/24/2023 16:09:29 Removal of gallbladder completed Linda Colindres MD [address] [place], [address], [facility] [employer] [facility] 06/20/2021 00:20:57 Imaging Results None recorded. Procedure Notes None recorded. Medical Equipment None Reported. Allergies No known drug allergies Medications Name Sig Start Date Stop Date Status Note LastModified by Organization Details LastModified Time cyclobenz aprine 10 mg tablet TAKE 1 TABLET BY MOUTH THREE TIMES A DAY NEEDED FOR MUSCLE SPASM 03/18 completed Not Available Not Available Not Available metformin 500 mg tablet TAKE 1 TABLET BY MOUTH IN THE MORNING 2 AT BEDTIME active Not Available Not Available No t Available bupropion HCl SR 150 mg tablet,12 hr sustained -release TAKE 1 TABLET BY MOUTH TWICE A DAY 08/25 completed Not Available Not Available Not Available venlafaxi ne ER 75 mg capsule,e xtended release 24 hr TAKE 1 CAPSULE BY MOUTH IN THE MORNING AND 2 IN THE EVENING active Not Available Not Available No t Available azithromy danielle 250 mg tablet TAKE 2 TABLETS BY MOUTH TODAY, THEN TAKE 1 TABLET DAILY FOR 4 DAYS DIRECTED 08/25 completed Not Available Not Available Not Available ibuprofen 800 mg tablet TAKE 1 TABLET BY MOUTH THREE TIMES DAILY NEEDED active Not Available Not Available No t Available metoprolo l tartrate 100 mg tablet TAKE 1 TABLET BY MOUTH TWICE DAILY active Not Available Not Available No t Available tizanidin e 4 mg tablet TAKE 1 TABLET BY MOUTH EVERY DAY AT BEDTIME NEEDED 02/22 completed Not Available Not Available Not Available levonorge strel-eth inyl estradiol 0.1 mg-20 mcg tablet TAKE 1 TABLET BY MOUTH EVERY DAY 02/22 completed LARISSIA -28 TABLET Refill Denied: No Edited by: Berta Ovalle) on 04/06/20 21 Stopped by: Jennifer(Berta Cotto) on Not Available Not Available Not Available hydroquin one 4 % topical cream APPLY TO FACE TWICE DAILY for 2 months 03/18 completed Not Available Not Available Not Available lisinopri l 20 mg tablet Take 1 tablet every day by oral route. 08/24 completed Not Available Not Available Not Available prednison e 20 mg tablet 02/22 completed Not Available Not Available Not Available metoprolo l succinate ER 100 mg tablet,ex tended release 24 hr TAKE 1 TABLET BY MOUTH EVERY DAY active Not Available Not Available No t Available acetamino phen 300 mg-codein e 30 mg tablet 02/22 completed Not Available Not Available Not Available amlodipin e 5 mg tablet TAKE 1 TABLET BY MOUTH ONCE DAILY active Not Available Not Available No t Available pantopraz ole 20 mg tablet,de layed release TAKE 1 TABLET BY MOUTH ONCE DAILY active Not Available Not Available No t Available lorazepam 0.5 mg tablet 3 tab po daily anxiety 08/24 completed Lorazepa m 0.5 mg oral tablet RxNorm: [id number] Allow Substitu tion: True Refill Denied: No Refill DateOccu rred: 10/10/19 19 Edited by: Ca Caro ) on 09/02/19 Stopped by: Ca Caro ) on Not Available Not Available Not Available methocarb rene 750 mg tablet TAKE 1 TABLET BY MOUTH THREE TIMES DAILY NEEDED active Not Available Not Available No t Available pantopraz ole 40 mg tablet,de layed release 08/25 completed Pantopra zole 40 mg oral tablet, delayed release (enteric coated) RxNorm: 128993 Allow Substitu tion: True Refill Denied: No Refill DateOccu rred: 10/10/19 19 Edited by: Ca Caro ) on 09/02/19 Stopped by: Ca Caro ) on Not Available Not Available Not Available progester one micronize d 200 mg capsule TAKE 1 CAPSULE BY MOUTH IN THE EVENING active Not Available Not Available No t Available glucosami ne sulfate 500 mg capsule 02/22 completed glucosam ine sulfate 500 mg oral capsule RxNorm: [id number] Allow Substitu tion: True Refill Denied: No Refill DateOccu rred: 10/10/19 19 Edited by: nathalia(Ca Garcia ) on 09/02/19 Stopped by: nathalia(Ca Garcia ) on Not Available Not Available Not Available aspirin 81 mg chewable tablet 02/22 completed aspirin 81 mg oral tablet,christine crawford RxNorm: 310295 Allow Substitu tion: True Refill Denied: No Refill DateOccu rred: 10/10/19 Edited by: nathalia(Ca Garcia ) on 09/02/19 Stopped by: nathalia(Jimi benedict, Ca ) on Not Available Not Available Not Available hydroxyzi ne HCl 25 mg tablet TAKE 1 TABLET BY MOUTH TWICE DAILY NEEDED active Not Available Not Available No t Available hydrochlo rothiazid e 25 mg tablet TAKE 1 TABLET BY MOUTH ONCE DAILY IN THE MORNING active Not Available Not Available No t Available mirtazapi ne 15 mg tablet TAKE 1 TABLET BY MOUTH NIGHTLY AT BEDTIME active Not Available Not Available No t Available gabapenti n 100 mg capsule TAKE 1 CAPSULE BY MOUTH THREE TIMES DAILY active Not Available Not Available No t Available lorazepam 1 mg tablet TAKE 1 TABLET BY MOUTH THREE TIMES DAILY NEEDED FOR 30 DAYS active Not Available Not Available No t Available zolpidem 10 mg tablet TAKE 1 TABLET BY MOUTH AT BEDTIME FOR 30 DAYS active Not Available Not Available No t Available lisinopri l 40 mg tablet TAKE 1 TABLET BY MOUTH ONCE DAILY active Not Available Not Available No t Available fluticaso ne propionat e 50 mcg/actua tion nasal spray,anibal pension SPRAY 1 SPRAY INTO EACH NOSTRIL EVERY DAY 02/22 completed Not Available Not Available Not Available amoxicill in 875 mg-potass ium clavulana te 125 mg tablet TAKE 1 TABLET BY MOUTH EVERY 12 HOURS FOR 7 DAYS 08/25 completed Not Available Not Available Not Available Vitamin D3 25 mcg (1,000 unit) capsule 09/09 completed Vitamin D3 1,000 unit oral capsule RxNorm: 634974 Allow Substitu tion: True Refill Denied: No Refill DateOccu rred: 10/10/19 19 Edited by: nathalia(Ca Garcia ) on 09/02/19 Stopped by: nathalia(Ca Garcia ) on Not Available Not Available Not Available bupropion HCl XL 300 mg 24 hr tablet, extended release take 1 tablet (300 mg) by oral route once daily 02/22 completed buPROPio n HCL 300 mg oral Tablet, Extended Release 24 hr RxNorm: [id number] Allow Substitu tion: False Refill Denied: No Refill DateOccu rred: 11/06/19 Edited by: Charline Montaño ) on 11/06/19 Stopped by: Charline Montaño ) on Not Available Not Available Not Available bupropion HCl XL 150 mg 24 hr tablet, extended release TAKE 1 TABLET BY MOUTH EVERY DAY IN THE MORNING 03/18 completed Not Available Not Available Not Available Enpresse 50-30 (6)/75-40 (5)/125-3 0(10) tablet TAKE 1 TABLET BY MOUTH EVERY DAY 02/22 completed Tri-Levl en (28) 50-30 (6)/75-4 0 (5)/125- 30(10) oral tablet RxNorm: 392978 Allow Substitu tion: True Refill Denied: No Edited by: Sergei(David ll, Mirlande ) on 10/01/19 Stopped by: Sergei(David andrade, Mirlande ) on Not Available Not Available Not Available zolpidem ER 12.5 mg tablet,ex tended release,m ultiphase TAKE 1 TABLET BY MOUTH EVERY DAY AT BEDTIME NEEDED active Not Available Not Available No t Available magnesium 08/24 completed Not Available Not Available Not Available magnesium sulfate 03/25 completed Magnesiu m Sulfate 40mEq/5g m Granules Allow Substitu tion: True Refill Denied: No Refill DateOccu rred: 10/10/19 Edited by: Noemy Ragland ) on 03/25/20 Stopped by: Noemy Ragland ) on 03/25/20 Not Available Not Available Not Available echinacea 03/25 completed Echinace a RxNorm: [id number] Allow Substitu tion: True Refill Denied: No Refill DateOccu rred: 10/10/19 Edited by: Neomy Ragland ) on 03/25/20 20 Stopped by: Noemy Ragland ) on 03/25/20 Not Available Not Available Not Available Motion Sickness 03/25 completed Motion sickness RxNorm: 0 Allow Substitu tion: True Refill Denied: No Refill DateOccu rred: 10/10/19 19 Edited by: Noemy Ragland ) on 03/25/20 20 Stopped by: Noemy Ragland ) on 03/25/20 20 Not Available Not Available Not Available One A Day Vitamin 09/09 completed One a Day vitamin RxNorm: 0 Allow Substitu tion: True Refill Denied: No Refill DateOccu rred: 10/10/19 19 Edited by: Charline Montaño ) on 06/03/20 19 Stopped by: Charline Montaño ) on Not Available Not Available Not Available Tylenol PM 03/25 completed Tylenol PM RxNorm: 0 Allow Substitu tion: True Refill Denied: No Refill DateOccu rred: 10/10/19 19 Edited by: Noemy Ragland ) on 03/25/20 Stopped by: Noemy Ragland ) on 03/25/20 Not Available Not Available Not Available diclofena c 1 % topical gel 02/22 completed Not Available Not Available Not Available Mimvey 1 mg-0.5 mg tablet TAKE 1 TABLET BY MOUTH DAILY 09/09 completed Not Available Not Available Not Available bupropion HCl 150 mg tablet,12 hr sustained -release( smoking deterrent ) TAKE 1 TABLET BY MOUTH TWICE DAILY active Not Available Not Available No t Available Marlys 0.05 mg/24 hr transderm al patch APPLY 1 PATCH TOPICALL Y TWICE A WEEK active Not Available Not Available No t Available Marlys 0.075 mg/24 hr transderm al patch APPLY 1 PATCH TOPICALL Y TWICE A WEEK active Not Available Not Available No t Available Ozempic 1 mg/dose (4 mg/3 mL) subcutane ous pen injector INJECT 1 MG UNDER THE SKIN EVERY 7 DAYS 09/09 completed Not Available Not Available Not Available Mounjaro 7.5 mg/0.5 mL subcutane ous pen injector INJECT 7.5 MG SUBCUTAN EOUSLY WEEKLY active Not Available Not Available No t Available Mounjaro 5 mg/0.5 mL subcutane ous pen injector INJECT 5 MG SUBCUTAN EOUSLY EVERY 7 DAYS active Not Available Not Available No t Available Mounjaro 10 mg/0.5 mL subcutane ous pen injector INJECT 10 MG UNDER THE SKIN EVERY 7 DAYS active Not Available Not Available No t Available Mounjaro 12.5 mg/0.5 mL subcutane ous pen injector INJECT 12.5 MG UNDER THE SKIN EVERY 7 DAYS active Not Available Not Available No t Available Mounjaro 2.5 mg/0.5 mL subcutane ous pen injector INJECT 0.5 ML (2.5 MG TOTAL) UNDER THE SKIN ONCE A WEEK FOR 28 DAYS 08/25 completed Not Available Not Available Not Available Ozempic 0.25 mg or 0.5 mg (2 mg/3 mL) subcutane ous pen injector INJECT 0.25 MG UNDER THE SKIN ONCE A WEEK FOR 14 DAYS, THEN 0.5 MG ONCE A WEEK FOR 21 DAYS. 08/25 completed Not Available Not Available Not Available Vitals Date Recorded Body height Body mass index (BMI) Body weight Body temperature Systolic blood pressure Diastolic blood pressure Provider Name and Address Organization Details Last Updated DateTime 2 165.1 cm 47.1 kg/m2 581360. 64 g 96.6 [degF] 132 mm[Hg] 88 mm[Hg] Leah Juárez Didi[facility]ache [facility] 2 15:19:34 Date Recorded Body height Body mass index (BMI) Body weight Body temperature Systolic blood pressure Diastolic blood pressure Provider Name and Address Organization Details Last Updated DateTime 2 165.1 cm 47.9 kg/m2 487277. 6 g 96.1 [degF] 140 mm[Hg] 92 mm[Hg] Leah inexio [facility] 2 14:43:10 Date Recorded Body height Body mass index (BMI) Body weight Body temperature Systolic blood pressure Diastolic blood pressure Provider Name and Address Organization Details Last Updated DateTime 165.1 cm 44.8 kg/m2 932378. 35 g 96.7 [degF] 122 mm[Hg] 82 mm[Hg] Ashley Brian [place] [facility] 14:01:08 Date Recorded Body height Body mass index (BMI) Body weight Systolic blood pressure Diastolic blood pressure Provider Name and Address Organization Details Last Updated DateTime 03/18/2024 165.1 cm 41.8 kg/m2 025867.1 2 g 120 mm[Hg] 80 mm[Hg] Nova Putnam [facility] IV 16:35:49 Social History Question Answer Notes LastModified by Organizat ion Details LastModified Time Tobacco Smoking Status Never Smoker Keyonna Tara [place] [facility] 08/25/2023 13:38:23 Are You Blind Or Do You Have Difficulty Seeing? Yes [email or web address] Information not available 08/25/2023 Are You Currently Employed? No Information not available 06/20/2021 Are You Deaf Or Do You Have Serious Difficulty Hearing? No [email or web address] Information not available 08/25/2023 What Type Of Diet Are You Following? DIABETIC [email or web address] Information not available 08/25/2023 How Many Children Do You Have? 0 Information not available 06/20/2021 What Is Your Relationship Status? Information not available 06/20/2021 Are You Sexually Active? No [email or web address] Information not available 08/25/2023 Do You Use Any Illicit Or Recreational Drugs? No [email or web address] Information not available 08/25/2023 Sex: Unknown Functional Status None recorded. Mental Status None recorded. Family History Relationship Description Onset Age of this Age Resolved Age Notes LastModified by Organization Details LastModified Time Mother Hypertensive disorder [email or web address] Not available 08/2021 20:59:26 Brother Malignant tumor of colon [email or web address] Not available 08/2021 20:59:36 Sister Primary malignant neoplasm of endometrium [email or web address] Not available 09/2023 13:35:52 Father Type 2 diabetes mellitus [email or web address] Not available 2023 13:35:52 Notes:Sister (thyroid cancer ) Sister (ovarian cancer) Medical History Condition Response Anxiety Disorder Y High Blood Pressure Y Arthritis Y Depression Y GERD (reflux) N Seasonal allergies Y Gynecological History Statement/Question Response If Post Menopausal, Age at Menopause 50 Date of Last Colonoscopy 01/12/2020 Date of last HPV 08/28/2023 Date of LMP 08/13/2021 Most Recent Bone Density 08/13/1989 HPV Vaccine N Date of Last Pap Smear 08/28/2023 Most Recent Mammogram 08/13/2021 Current Control Method Menopause Age at Menarche 18 Obstetrics History GPAL:G 0 P 0 0 0 0 Past Encounters Encounter ID Performer Location Encounter Start Date Encounter Closed Date Diagnosis/Indication Diagnosis SNOMED-CT Code Diagnosis ICD10 Code [id number] Linda Colindres MD [facility] [address] [place] [address] 02/22/2022 14:58:07 03/21/2022 12:03:35 Menopausal syndrome 267550907 N95.9 Body mass index 40+ - severely obese 061851090 Z68.42 [id number] Linda Colindres MD [facility] [address] [place] [address] 04/01/2022 14:35:41 07/18/2022 11:26:52 Menopausal syndrome 058895970 N95.9 [id number] Linda Colindres MD [facility] [address] [place] [address] 08/25/2023 13:35:49 09/10/2023 13:45:26 Gynecologic examination 16004153 Z01.419 Screening for malignant neoplasm of cervix 176930945 Z12.4 Screening for malignant neoplasm of breast 890121848 Z12.31 Menopausal syndrome 1237 75632 N95.9 Health Concerns Section Related Observation LastModified by Organization Detai ls LastModified Time None Recorded Concern Status LastModified by Organization Details LastModified Time None Recorded Advance Directives Directive None Recorded Payers Encounter Date Sequence Insurance Name Policy Number Policy Verde Covered Member ID Verde Member ID Guarantor Name 02/22/2022 1 [employer] (MEDICARE REPLACEMENT/ ADVANTAGE - PPO) [id number] Kelli K Fortner MEDICARE DUAL Veronica Evangelista 04/01/2022 1 [employer] (MEDICARE REPLACEMENT/ ADVANTAGE - PPO) [id number] Veronica Evangelista MEDICARE DUAL Veronica Evangelista 08/25/2023 1 [employer] (MEDICARE REPLACEMENT/ ADVANTAGE - PPO) [id number] Veronica Evangelista MEDICARE DUAL Veronica Evangelista Notes Date Note Type Note Provider Name and Address Organization Details Recorded Time 02/22/2022 text/html Would like to connolly ve labs done to see if she is going through menopauseLabs to check her tyroid levelsStates that she struggles with urination (unable to go at times)stopped ocp 6 months ago, hot flashes, night sweats, crying Linda Colindres MD [address] [place] [address], [phone], [facility] 03/19/2022 17:28:33 04/01/2022 text/html Patient is being seen today for test results- labs. She had labs done due to menopausal symptoms. Her FSH is elevated at 47. Estradiol is less than 15 and thyroid is normal Linda Colindres MD [address] [place] [address], [phone], [facility] [employer] [facility] 07/17/2022 21:54:47 08/25/2023 text/html Veronica is a 53 yr old G0 who presents for annual exam today. She was last seen her 03/2022 for menopause, and Mimvey was started for severe menopausal symptoms.She is due for pap and mammogram.Pt said she tried the mimvey but stopped taking it because it was not working for her, pt is experiencing mood swings, depression, chills, hot flashes , sweats from becoming menopause last year and just wants some relief so she can feel normal. Pt says she is only depressed because she doesn't have any control over these symptoms. Linda Colindres MD [facility] [place], [address], [facility] 09/09/2023 11:47:29 OBGyn Episode No OBEpisode recorded.
--- OUTSIDE RECORDS SUMMARY | 2024-07-10 23:17 | XMS_ITS | Encounter Summary ---
Author Organization [facility] Healthcare Address [address] [place] [address] Care Team Providers Care Faculty Research Physician Name Role Phone Keyonna Armstrong Primary Care Provider + Gasper Ochoa MD Unavailable Reason for Visit * Reason Onset Date Comments Prior Auth 11/26/2023 JUDAH Mohan Encounter Details Date Type Department Care Team (Late st Contact Info) Description 11/26/2023 Telephone [facility] Family Medicine at [address] [place] [address] Keyonna Armstrong PA [address] [place] [id number] Prior Auth (JUDAH Mohan) Social History Tobacco Use Types Packs/Day Years [...] on file Legal Sex Female 6:41 PM [employer] Gender Identity Not on file Sexual Orientation Not on file 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 * Telephone Encounter - Nova Ashley MA - 11/26/2023 1:54 PM CDT PA on Mounjaro for covermymeds [id number] documented in this encounter Plan of Treatment Not on file documented as of this encounter Visit Diagnoses Not on filedocumented in this encounter Care Teams Faculty Research Physician Relationship Specialty Start Date End Date Keyonna Armstrong PA PCP - General Nurse Practitioner 06/20/18 Gasper Ochoa MD [address] [facility] [place] [address] Consulting Physician Pain Management 08/31/21 documented as of this encounter
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
--- OUTSIDE RECORDS SUMMARY | 2024-07-10 23:17 | XMS_ITS | Encounter Summary ---
Author Organization [facility] Address [address] [place] [address] Care Team Providers Care Automotive Designer Name Role Phone Keyonna Armstrong Primary Care Provider + Gasper Ochoa MD Unavailable Encounter Details Date Type Department Care Team (Late st Contact Info) Description 01/17/2022 Telephone [facility] Orthopedics and Sports Medicine [address] [facility] [place] [address] [place] [phone] Valentina Curtis TRAM OPERATOR [address] [place] [address] [address] [place] [address] Social History Tobacco Use Types Packs/Day Years [...] on file Legal Sex Female 6:41 PM JALOUSIES INSTALLER Gender Identity Not on file Sexual Orientation Not on file 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 Not on file Not on leeann e documented as of this encounter Miscellaneous Notes * Telephone Encounter - Dodie Garcia - 01/19/2022 1:37 PM CDT error documented in this encounter Plan of Treatment Not on file documented as of this encounter Visit Diagnoses Not on filedocumented in this encounter Care Teams Automotive Designer Relationship Specialty Start Date End Date Keyonna Armstrong PA PCP - General Nurse Practitioner 06/20/18 Gasper Ochoa MD [address] [place] [address] Consulting Physician Pain Management 08/31/21 documented as of this encounter
--- OUTSIDE RECORDS SUMMARY | 2024-07-10 23:17 | XMS_ITS | Encounter Summary ---
Author Organization [facility] Healthcare Address [address] [place] [address] Care Team Providers Care Nuclear Test Technician Name Role Phone Keyonna Armstrong Primary Care Provider + Gasper Ochoa MD Unavailable Gasper Ochoa MD Unavailable Reason for Referral * Diagnostic Imaging (Routine) - Closed Specialty Diagnoses / Procedures Referred By Contac t Referred To Contact Diagnoses Neck pain Procedures FL Fluoroscopy < 1 Hour Gasper Ochoa MD [address] [place] [facility] [place] [address] Phone: tel: fax: [address] [phone] Referral ID Status Reason Start Date Expiration Date Visits Re quested Visits Authorized [id number] Closed 08/31/2021 09/30/2022 1 1 NEYMAN PRESSMAN Reason for Visit * Diagnostic Imaging (Routine) - Closed Specialty Diagnoses / Procedures Referred By Contac t Referred To Contact Diagnoses Neck pain Procedures FL Fluoroscopy < 1 Hour Gasper Ochoa MD [address] [place] [address] Phone: tel: fax: [address] [phone] Referral ID Status Reason Start Date Expiration Date Visits Re quested Visits Authorized [id number] Closed 08/31/2021 09/30/2022 1 1 Encounter Details Date Type Department Care Team (Latest Contact Info) Description 08/31/2021 8:00 AM JOURNEYMAN PRESSMAN - 08/31/2021 1:13 PM JOURNEYMAN PRESSMAN Hospital Encounter [facility] Pain [facility] Imaging [address] [place] [address] Neck pain Discharge Disposition: Discharge to home or [...] on file Legal Sex Female 6:41 PM JOURNEYMAN PRESSMAN Gender Identity Not on file Sexual Orientation Not on file 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 ??Please refer to the physician's procedure / OR operative note. Gasper Ochoa MD IMG FLUOROSCOPY PROCEDURES Final Result [facility] documented in this encounter Visit Diagnoses Diagnosis Neck pain Cervicalgia documented in this encounter Care Teams Nuclear Test Technician Relationship Specialty Start Date End Date Keyonna Armstrong PA PCP - General Nurse Practitioner 06/20/18 Gasper Ochoa MD [address] [place] [address] Consulting Physician Pain Management 08/31/21 Gasper Ochoa MD [address] [address] [facility] [place] [address] Consulting Physician Pain Management 08/31/21 08/31/21 documented as of this encounter
--- OUTSIDE RECORDS SUMMARY | 2024-07-10 23:17 | XMS_ITS | Encounter Summary ---
Author Organization [facility] Address [address] [address] Care Team Providers Care Darklight Inspector Name Role Phone Keyonna Armstrong Primary Care Provider + Gasper Ochoa MD Unavailable Reason for Visit * Reason Onset Date Comments Medical Question/Miscellaneous 06/07/2022 Encounter Details Date Type Department Care Team (Late st Contact Info) Description 06/07/2022 Telephone [facility] Primary Care at [address] [place] [address] Keyonna Armstrong PA [address] [place] [id number] Medical Question/Miscellaneous Social History Tobacco Use Types Packs/Day Years [...] on file Legal Sex Female 6:41 PM PATIENT CARE REPRESENTATIVE Gender Identity Not on file Sexual Orientation Not on file 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 Wheat. Information was relayed. No further assistance needed at this time. Caller???s Call back #: [phone] Does message need to be routed?No ENT CARE REPRESENTATIVE documented in this encounter Plan of Treatment Not on file documented as of this encounter Visit Diagnoses Not on filedocumented in this encounter Care Teams Darklight Inspector Relationship Specialty Start Date End Date Keyonna Armstrong PA PCP - General Nurse Practitioner 06/20/18 Gasper Ochoa MD [address] [place] [address] Consulting Physician Pain Management 08/31/21 documented as of this encounter
--- OUTSIDE RECORDS SUMMARY | 2024-07-10 23:17 | XMS_ITS | Encounter Summary ---
Author Organization [facility] Address [address] [place] [address] Care Team Providers Care Slabber Name Role Phone Keyonna Armstrong Primary Care Provider + Gasper Ochoa MD Unavailable Reason for Visit * Reason Comments weight/obesity management Encounter Details Date Type Department Care Team (Late st Contact Info) Description 07/01/2024 11:00 AM SCANNING MANAGER Office Visit [facility] Family Medicine at [address] [place] [address] Mark Wheat MD [address] [place] [id number] Controlled type 2 diabetes mellitus without complication, without long-term current use of insulin (CMS/HCC) (HCC) (Primary Dx); Class 2 obesity due to excess calories without serious comorbidity with body mass index (BMI) of 39.0 to 39.9 in adult Social History Tobacco Use Types Packs/Day Years Used Date Smoking Tobacco: Never Smokeless Tobacco: Never Alcohol Use Standard Drinks/Week Comments No 0 (1 standard drink = 0.6 oz pur e alcohol) AUDIT-C Answer Date Recorded Q1: How often do you have a drink containing alcohol? Never 07/01/2024 Q2: How many drinks containi ng alcohol do you have on a typical day when you are drinking? Patient does not drink Q3: How often do you have si x or more drinks on one occasion? 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 Not on file Not on leeann e documented as of this encounter Last Filed Vital Signs Vital Sign Reading Time Taken Comments Blood Pressure 102/72 07/01/2024 11:25 AM SCANNING MANAGER Pulse 112 07/01/2024 11:25 AM SCANNING MANAGER Temperature 36 ??C (96.8 ??F) 07/01/2024 11: 25 AM SCANNING MANAGER Respiratory Rate - - Oxygen Saturation 96% 07/01/2024 11: 25 AM SCANNING MANAGER Inhaled Oxygen Concentration - - Weight 107.8 kg (237 lb 9.6 oz) 024 11:25 AM SCANNING MANAGER Height 165.1 cm (5' 5) 07/01/2024 11:2 5 AM SCANNING MANAGER Body Mass Index 39.54 07/01/2024 11:25 AM SCANNING MANAGER documented in this encounter Ordered Prescriptions Prescription Sig Dispense Quantity Refills Last Filled Start Date End Date tirzepatide (Mounjaro) 12.5 mg/0.5 mL pen injectorIndication s:Controlled type 2 diabetes mellitus without complication, without long-term current use of insulin ([facility]/HCC) (HCC) Inject 12.5 mg under the skin every 7 days 6 mL 3 07/01/2024 07/01/2025 documented in this encounter Progress Notes * Mark Wheat MD - 07/01/2024 11:00 AM CST Images from the original note were not included. Visit date: 07/01/2024 Patient ID: Veronica Evangelista is a 53 y.o. female. Chief Complaint. Chief Complaint Patient presents with weight/obesity management HPI. Patient is a 53 y.o. female HPI Lifestyle Medicine For Weight Management: Previous Dietary Approaches: Not on any specific Diet ZENON: yes, and is not using CPAP Mental Health: Stable Diabetes: No Previous History of Weight Loss Surgery: Gastric Bypass First Visit Date: 07/12/22 First Visit Weight: 298lb 05/29/23: 283lb 08/28/23: 273lb 11/27/23: 261lb 03/21/24: 249lb 07/01/24: 237lb. Dates: Weight (lb) Wt Readings from Last 3 Encounters: 07/01/24 107.8 kg (237 lb 9.6 oz) 05/21/24 112.9 kg (249 lb) 03/21/24 113.1 kg (249 lb 4.8 oz) Total Weight Loss: 61lb Treatment: Medication: Phentermine couldn't tolerate Meal Replacement/Delivery: No Specific Diet: Not on any specific Diet Food Diary: No Activity: is walking and [place] 5000 [place] [id number] Past Medical History: Diagnosis Date Anxiety Arthropathy [...] anterolisthesisof C7 on T1. Past Surgical History: Procedure Laterality Date BARIATRIC SURGERY 20yrs ago CHOLECYSTECTOMY CARLOS MANUEL-EN-Y PROCEDURE 09/[address] Lafleur URETERAL STENT PLACEMENT Left 11/04/2003, 11/2003 Allergies Allergen Reactions Trazodone Hallucinations Social History Tobacco Use Smoking status: Never Smokeless tobacco: Never Substance and Sexual Activity Drug use: No Sexual activity: None Alcohol Use: Not At Risk (07/01/2024) AUDIT-C Frequency of Alcohol Consumption: Never Average Number of Drinks: Patient does not drink Frequency of Binge Drinking: Never Family History Problem Relation Age of Onset Hypertension Mother Other (Other) Mother Diabetes Father Hypertension Father Thyroid cancer Sister Other (cirrhosis ) Brother Other (Other) Brother Current Medications: Outpatient Encounter Medications as of 07/01/2024 Medication Sig Dispense Refill amLODIPine (NORVASC) 5 mg tablet Take 1 tablet (5 mg total) by mouth daily buPROPion SR (WELLBUTRIN SR) 150 mg 12 hr tablet Take 1 tablet (150 mg total) by mouth 2 (two) times a day cranberry extract (Cranberry Juice Powder) 425 mg capsule Take by mouth diphenhydrAMINE-acetaminophen (TYLENOL PM) 25-500 mg tablet Take 1 tablet by mouth daily Marlys 0.075 mg/[address] 1 patch on the skin 2 (two) times a week gabapentin (NEURONTIN) 100 mg capsule TAKE 1 CAPSULE BY MOUTH THREE TIMES DAILY 180 capsule 0 hydroCHLOROthiazide (HYDRODIURIL) 25 mg tablet Take 1 tablet (25 mg total) by mouth every morning 0 ibuprofen (ADVIL,MOTRIN) 800 mg tablet lisinopril (PRINIVIL,ZESTRIL) 40 mg tablet Take 0.5 tablets (20 mg total) by mouth every morning 0 LORazepam (ATIVAN) 1 mg tablet Take 0.5 tablets (0.5 mg total) by mouth every 8 (eight) hours as needed for anxiety metFORMIN (GLUCOPHAGE) 500 mg tablet Take 3 tablets (1,500 mg total) by mouth daily 3 tabs in evening for 1500 mg dose 1 metoprolol XL (TOPROL-XL) 100 mg 24 hr tablet Take 2 tablets (200 mg total) by mouth nightly 1 multivitamin tablet Take 1 tablet by mouth every morning pantoprazole DR (PROTONIX) 20 mg EC tablet 1 tablet (20 mg total) progesterone (PROMETRIUM) 200 mg capsule Take 1 capsule (200 mg total) by mouth daily sennosides (Laxative Maximum Strength) 25 mg tablet 25 mg daily venlafaxine XR (EFFEXOR-XR) 75 mg 24 hr capsule Take 3 capsules (225 mg total) by mouth daily zolpidem (AMBIEN) 10 mg tablet TAKE 1 TABLET BY MOUTH AT BEDTIME NEEDED 1 [DISCONTINUED] estradioL (VIVELLE-DOT) 0.05 mg/[address] 1 patch on the skin 2 (two) times a week [DISCONTINUED] tirzepatide (Mounjaro) 12.5 mg/0.5 mL pen injector INJECT 12.5 MG UNDER THE SKIN EVERY 7 DAYS 2 mL 1 mirtazapine (REMERON) 15 mg tablet Take 1 tablet (15 mg total) by mouth nightly (Patient not taking: Reported on 07/01/2024) tirzepatide (Mounjaro) 12.5 mg/0.5 mL pen injector Inject 12.5 mg under the skin every 7 days 6 mL 3 No facility-administered encounter medications on file as of 07/01/2024. Review of Systems: Review of Systems Constitutional: Positive for activity change, appetite change, fatigue and unexpected weight change. Negative for chills, diaphoresis and fever. HENT: Negative for trouble swallowing and voice change. Eyes: Negative for photophobia and visual disturbance. Respiratory: Negative for apnea, chest tightness and shortness of breath. Cardiovascular: Negative for chest pain, palpitations and leg swelling. Gastrointestinal: Negative for blood in stool, constipation and nausea. Endocrine: Negative for cold intolerance, heat intolerance, polydipsia, polyphagia and polyuria. Musculoskeletal: Negative for arthralgias, back pain, gait problem, myalgias, neck pain and neck stiffness. Skin: Negative for rash. Allergic/Immunologic: Negative for food allergies. Neurological: Negative for dizziness, seizures, weakness, light-headedness and headaches. Hematological: Negative for adenopathy. Psychiatric/Behavioral: Negative for agitation, behavioral problems and suicidal ideas. The patientis not nervous/anxious and is not hyperactive. BP 102/72 (BP Location: Right arm, Patient Position: Sitting) Pulse 112 Temp 36 ??C (96.8 ??F) (Temporal) Ht 165.1 cm (5' 5) Wt 107.8 kg (237 lb 9.6 oz) SpO2 96% BMI 39.54 kg/m?? Physical Exam: Physical Exam Constitutional: He is oriented to person, place, and time. Vital signs are normal. He appears well-developed and well-nourished. HENT: Head: Normocephalic and atraumatic. Mouth/Throat: Oropharynx is clear and moist. Eyes: Pupils are equal, round, and reactive to light. Conjunctivae and EOM are normal. Neck: Normal range of motion. Neck supple. No thyromegaly present. Cardiovascular: Normal rate, regular rhythm, normal heart sounds and intact distal pulses. Pulmonary/Chest: Effort normal and breath sounds normal. Neurological: He is alert and oriented to person, place, and time. Psychiatric: He has a normal mood and affect. His behavior is normal. Judgment and thought content normal. Nursing note and vitals reviewed. Assessment & Plan: Diagnoses and all orders for this visit: Controlled type 2 diabetes mellitus without complication, without long-term current use of insulin ([facility]) ([facility]) (Primary) Comments: Chronic. Uncontrolled. Goal Weight Reversal: 160lb. cont. Mounjaro 12.5mg Weekly. Orders: - tirzepatide (Mounjaro) 12.5 mg/0.5 mL pen injector; Inject 12.5 mg under the skin every 7 days Class 2 obesity due to excess calories without serious comorbidity with body mass index (BMI) of 39.0 to 39.9 in adult Comments: Chronic. Uncontrolled. Goal: 160lb. Cont. Mounjaro. Recommended aggressive Lifestyle modification and weight loss for improving overall weight related health conditions. Follow up in 1 or 3 months for continuing Lifestyle Medicine education and management visit. Recommend Lifestyle/Nutrition/Weight Loss Seminar on every other Tuesdays @ 5pm. Body mass index is 39.54 kg/m??. BMI Plan: Nutrition/Activities/Behavioral Counseling. Education Provided. Follow up 1-3 months. Mark Wheat MD NING MANAGER documented in this encounter Plan of Treatment Not on file documented as of this encounter Visit Diagnoses Diagnosis Controlled type 2 diabetes mellitus without complication, without long-term current use of insulin ([facility]) ([facility])- Primary Class 2 obesity due to excess calories without serious comorbidity with body mass index (BMI) of 39.0 to 39.9 in adult documented in this encounter Discontinued Medications Medication Sig Discontinue Reason Start Date End Da te estradioL (VIVELLE-DOT) 0.05 mg/[address] 1 patch on the skin 2 (two) times a week Duplicate order 09/20/2023 07/01/2024 tirzepatide (Mounjaro) 12.5 mg/0.5 mL pen injectorIndications:Cont rolled type 2 diabetes mellitus without complication, without long-term current use of insulin (CMS/[facility]) ([facility]) INJECT 12.5 MG UNDER THE SKIN EVERY 7 DAYS Reorder 06/09/2024 07/01/2024 documented as of this encounter Historical Medications * This list may reflect changes made after this encounter. Marlys 0.075 mg/[address] 1 patch on the skin 2 (two) times a week 05/31/2024 added in this encounter Care Teams Slabber Relationship Specialty Start Date End Date Keyonna Armstrong PA PCP - General Nurse Practitioner 06/20/18 Gasper Ochoa MD [facility] [place] [address] Consulting Physician Pain Management 08/31/21 documented as of this encounter
--- OUTSIDE RECORDS SUMMARY | 2024-07-10 23:17 | XMS_ITS | Encounter Summary ---
Author Organization [facility] Address [address] [place] [address] Care Team Providers Care Litigation Claim Representative Name Role Phone Keyonna Armstrong Primary Care Provider + Gasper Ochoa MD Unavailable Reason for Visit * Reason Comments weight/obesity management Encounter Details Date Type Department Care Team (Late st Contact Info) Description 03/21/2024 11:00 AM CDT Office Visit [facility] Family Medicine at [address] [place] [address] Mark Wheat MD [address] [place] [id number] Controlled type 2 diabetes mellitus without complication, without long-term current use of insulin ([facility]/HCC) ([facility]) (Primary Dx) Social History Tobacco Use Types [...] on file 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 Gender Identity Not on file Sexual Orientation Not on file 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 Not on file Not on leeann e documented as of this encounter Last Filed Vital Signs Vital Sign Reading Time Taken Comments Blood Pressure 114/89 03/21/2024 10:53 AM CDT Pulse 137 03/21/2024 10:53 AM CDT Temperature 36.4 ??C (97.5 ??F) 03/21/2024 1 0:53 AM CDT Respiratory Rate 18 03/21/2024 10:5 3 AM CDT Oxygen Saturation 95% 03/21/2024 10: 53 AM CDT Inhaled Oxygen Concentration - - Weight 113.1 kg (249 lb 4.8 oz) 024 10:53 AM CDT Height 165.1 cm (5' 5) 03/21/2024 10:5 3 AM CDT Body Mass Index 41.49 03/21/2024 10:53 AM CDT documented in this encounter Ordered Prescriptions Prescription Sig Dispense Quantity Refills Last Filled Start Date End Date tirzepatide (Mounjaro) 12.5 mg/0.5 mL pen injectorIndication s:Controlled type 2 diabetes mellitus without complication, without long-term current use of insulin ([facility]) (HCC) Inject 12.5 mg under the skin every 7 days 6 mL 1 03/21/2024 06/09/2024 documented in this encounter Progress Notes * Mark Wheat MD - 03/21/2024 11:00 AM CDT Images from the original note were not included. Visit date: 03/21/2024 Patient ID: Veronica Evangelista is a 53 [...] Visit Weight: 298lb 05/29/23: 283lb 08/28/23: 273lb 5/7/24: 261lb 03/21/24: 249lb Dates: Weight (lb) Wt Readings from Last 3 Encounters: 03/21/24 113.1 kg (249 lb 4.8 oz) 02/19/24 118.4 kg (261 lb) 11/27/23 118.5 kg (261 lb 4.8 oz) Total Weight Loss: 49lb Treatment: Medication: Phentermine couldn't tolerate Meal Replacement/Delivery: No Specific Diet: Not on any specific Diet Food Diary: No Activity: is walking and [place] [id number] Past Medical History: Diagnosis Date Anxiety Arthropathy [...] Date BARIATRIC SURGERY 20yrs ago CHOLECYSTECTOMY CARLOS MAUNEL-EN-Y PROCEDURE 09/[address] Lafleur URETERAL [...] Current Medications: Outpatient Encounter Medications as of 03/21/2024 Medication Sig Dispense Refill amLODIPine (NORVASC) 5 mg tablet Take 1 tablet (5 mg total) by mouth daily buPROPion SR (WELLBUTRIN SR) 150 mg 12 hr tablet Take 1 tablet (150 mg total) by mouth 2 (two) times a day cranberry extract (Cranberry Juice Powder) 425 mg capsule Take by mouth diphenhydrAMINE-acetaminophen (TYLENOL PM) 25-500 mg tablet Take 1 tablet by mouth daily estradioL (VIVELLE-DOT) 0.05 mg/[address] 1 patch on the skin 2 (two) times a week gabapentin (NEURONTIN) 100 mg capsule Take 1 capsule (100 mg total) by mouth 3 (three) times a day (Patient taking differently: Take 1 capsule (100 mg total) by mouth 3 (three) times a day As needed only) 90 capsule 3 hydroCHLOROthiazide (HYDRODIURIL) 25 mg tablet Take 1 [...] BY MOUTH AT BEDTIME NEEDED 1 [DISCONTINUED] tirzepatide (Mounjaro) 12.5 mg/0.5 mL pen injector Inject 12.5 mg under the skin every 7 days 6 mL 1 mirtazapine (REMERON) 15 mg tablet Take 1 tablet (15 mg total) by mouth nightly (Patient not taking: Reported on 11/27/2023) tirzepatide (Mounjaro) 12.5 mg/0.5 mL pen injector Inject 12.5 mg under the skin every 7 days 6 mL 1 [DISCONTINUED] tirzepatide (Mounjaro) 10 mg/0.5 mL pen injector INJECT 10 MG UNDER THE SKIN EVERY 7DAYS (Patient not taking: Reported on 03/21/2024) 3 mL 1 No facility-administered encounter medications on file as of 03/21/2024. Review of Systems: Review of Systems Constitutional: [...] not nervous/anxious and is not hyperactive. BP 114/89 (BP Location: Left arm, Patient Position: Sitting) Pulse (!) 137 Temp 36.4 ??C (97.5 ??F) Resp 18 Ht 165.1 cm (5' 5) Wt 113.1 kg (249 lb 4.8 oz) SpO2 95% BMI 41.49 kg/m?? Physical Exam: Physical Exam Constitutional: He [...] without long-term current use of insulin (CMS/HCC) ([facility]) (Primary) Comments: Chronic. Uncontrolled. cont. Mounjaro 12.5mg Weekly. Orders: - tirzepatide (Mounjaro) 12.5 mg/0.5 mL pen injector; Inject 12.5 mg under the skin every 7 days Recommended aggressive Lifestyle modification and weight loss for improving overall weight related health conditions. Follow up in 1 or 3 months for continuing Lifestyle Medicine education and management visit. Recommend Lifestyle/Nutrition/Weight Loss Seminar on every other Tuesdays @ 5pm. Body mass index is 41.49 kg/m??. BMI Plan: Nutrition/Activities/Behavioral Counseling. Education Provided. Follow up 1-3 months. Mark Wheat MD documented in this encounter Plan of Treatment Not on file documented as of this encounter Visit Diagnoses Diagnosis Controlled type 2 diabetes mellitus without complication, without long-term current use of insulin (CMS/HCC) ([facility])- Primary documented in this encounter Discontinued Medications Medication Sig Discontinue Reason Start Date End Da te tirzepatide (Mounjaro) 10 mg/0.5 mL pen injector INJECT 10 MG UNDER THE SKIN EVERY 7 DAYS Therapy completed 11/26/2023 03/21/2024 tirzepatide (Mounjaro) 12.5 mg/0.5 mL pen injectorIndications:Cont rolled type 2 diabetes mellitus without complication, without long-term current use of insulin (CMS/HCC) ([facility]) Inject 12.5 mg under the skin every 7 days Reorder 11/27/2023 03/21/2024 documented as of this encounter Care Teams Litigation Claim Representative Relationship Specialty Start Date End Date Keyonna Armstrong PA PCP - General Nurse Practitioner 06/20/18 Gasper Ochoa MD [address] [place] [address] Consulting Physician Pain Management 08/31/21 documented as of this encounter
--- OUTSIDE RECORDS SUMMARY | 2024-07-10 23:17 | XMS_ITS | Encounter Summary ---
Author Organization [facility] Healthcare Address [address] [place] [address] Care Team Providers Care Senior Linux Administrator Name Role Phone Keyonna Armstrong Primary Care Provider + Gasper Ochoa MD Unavailable Encounter Details Date Type Department Care Team (Late st Contact Info) Description 05/29/2023 11:45 AM SUPERVISOR ACOUSTICAL TILE CARPENTERS Office Visit [facility] Medical Group Family Medicine at [address] [phone] Bolivar Ricks MD [address] [place] [phone] Abnormal weight gain (Primary Dx); Class 3 severe obesity due to excess calories with serious comorbidity and body mass index (BMI) of 45.0 to 49.9 in adult ([facility]); Metabolic syndrome; Controlled type 2 diabetes mellitus without complication, without long-term current use of insulin ([facility]) ([facility]) Social History Tobacco Use Types Packs/Day Years [...] file Legal Sex Female 6:41 PM SUPERVISOR ACOUSTICAL TILE CARPENTERS Gender Identity Not on file Sexual Orientation Not on file 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 Not on file Not on leeann e documented as of this encounter Last Filed Vital Signs Vital Sign Reading Time Taken Comments Blood Pressure 114/90 05/29/2023 11:49 AM SUPERVISOR ACOUSTICAL TILE CARPENTERS Pulse 134 05/29/2023 11:49 AM SUPERVISOR ACOUSTICAL TILE CARPENTERS Temperature 37.3 ??C (99.2 ??F) 05/29/2023 1 1:49 AM SUPERVISOR ACOUSTICAL TILE CARPENTERS Respiratory Rate - - Oxygen Saturation 97% 05/29/2023 11: 49 AM SUPERVISOR ACOUSTICAL TILE CARPENTERS Inhaled Oxygen Concentration - - Weight 128.4 kg (283 lb 1.6 oz) 023 11:49 AM SUPERVISOR ACOUSTICAL TILE CARPENTERS Height 165.1 cm (5' 5) 05/29/2023 11:4 9 AM SUPERVISOR ACOUSTICAL TILE CARPENTERS Body Mass Index 47.11 05/29/2023 11:49 AM SUPERVISOR ACOUSTICAL TILE CARPENTERS documented in this encounter Ordered Prescriptions Prescription Sig Dispense Quantity Refills Last Filled Start Date End Date semaglutide (OZEMPIC) 2 mg/dose (8 mg/3 mL) pen injector injectionIndicatio ns:Class 3 severe obesity due to excess calories with serious comorbidity and body mass index (BMI) of 45.0 to 49.9 in adult ([facility]),Abnormal weight gain,Metabolic syndrome,Controlle d type 2 diabetes mellitus without complication, without long-term current use of insulin ([facility]) ([facility]) Inject 2 mg under the skin every 7 days 9 mL 1 05/29/2023 05/30/2023 semaglutide (OZEMPIC) 2 mg/dose (8 mg/3 mL) pen injector injectionIndicatio ns:Class 3 severe obesity due to excess calories with serious comorbidity and body mass index (BMI) of 45.0 to 49.9 in adult ([facility]),Abnormal weight gain,Metabolic syndrome,Controlle d type 2 diabetes mellitus without complication, without long-term current use of insulin ([facility]) ([facility]) Inject 2 mg under the skin every 7 days 9 mL 1 05/29/2023 05/29/2023 documented in this encounter Progress Notes * Bolivar Ricks MD - 05/29/2023 11:45 AM CST Images from the original note were not included. Visit date: 05/29/2023 Patient ID: Veronica Evangelista is a 52 y.o. female. Chief Complaint. No chief complaint on file. HPI. Patient is a 52 y.o. female HPI Lifestyle Medicine For Weight Management: Previous Dietary Approaches: Not on any specific Diet ZENON: yes, and is not using CPAP Mental Health: Stable Diabetes: No Previous History of Weight Loss Surgery: Gastric Bypass First Visit Date: 07/12/22 First Visit Weight: 298lb 05/29/23: 283lb Dates: Weight (lb) Wt Readings from Last 3 Encounters: 05/29/23 128.4 kg (283 lb 1.6 oz) 05/28/23 127 kg (280 lb) 02/26/23 127 kg (280 lb) Total Weight Loss: 15lb Treatment: Medication: Phentermine couldn't tolerate Meal Replacement/Delivery: No Specific Diet: Not on any specific Diet Food Diary: No Activity: is walking and [place] 5000 to [id number] Past Medical History: Diagnosis Date Anxiety Arthropathy [...] activity: None Alcohol Use: Not At Risk (05/29/2023) AUDIT-C Frequency of Alcohol Consumption: Never Average Number of Drinks: Not on file Frequency of Binge Drinking: Never Family History Problem Relation Age of Onset Hypertension Mother Other (Other) Mother Diabetes Father Hypertension Father Thyroid cancer Sister Other (cirrhosis ) Brother Other (Other) Brother Current Medications: Outpatient Encounter Medications as of 05/29/2023 Medication Sig Dispense Refill buPROPion SR (WELLBUTRIN SR) 150 mg 12 hr tablet Take 1 tablet (150 mg total) by mouth 2 (two) times a day diclofenac sodium (VOLTAREN) 1 % gel Apply 4 g topically 4 (four) times a day fluticasone propionate (FLONASE) 50 mcg/actuation nasal spray SPRAY 1 SPRAY INTO EACH NOSTRIL EVERYDAY gabapentin (NEURONTIN) 100 mg capsule TAKE 1 CAPSULE BY MOUTH THREE TIMES A DAY (Patient not taking: Reported on 05/28/2023) 90 capsule 3 hydroCHLOROthiazide (HYDRODIURIL) 25 mg tablet Take 1 tablet (25 mg total) by mouth every morning 0 ibuprofen (ADVIL,MOTRIN) 800 mg tablet Lactobacillus acidophilus (Probiotic) 10 billion cell capsule Rx: Probiotic - Capsule Larissia 0.1-20 mg-mcg per tablet lisinopril (PRINIVIL,ZESTRIL) 40 mg tablet Take 1 tablet (40 mg total) by mouth every morning 0 LORazepam (ATIVAN) 1 mg tablet metFORMIN (GLUCOPHAGE) 500 mg tablet TAKE 1 TABLET BY MOUTH EVERY MORNING AND TAKE 2 TABLETS AT BEDTIME 1 methocarbamoL (ROBAXIN) 750 mg tablet TAKE 1 TO 2 TABLETS BY MOUTH 3 TIMES A DAY NEEDED metoprolol XL (TOPROL-XL) 100 mg 24 hr tablet Take 1 tablet (100 mg total) by mouth nightly 1 Mimvey 1-0.5 mg per tablet Take 1 tablet by mouth daily multivitamin tablet Take 1 tablet by mouth every morning NOT IN DATABASE, PRESCRIPTION, Spark Zinc and Selenium supplement for thyroid ondansetron (ZOFRAN) 4 mg tablet Take 1 tablet (4 mg total) by mouth every 6 (six) hours as needed for nausea or vomiting. [address] (PROTONIX) 20 mg EC tablet 1 tablet (20 mg total) semaglutide (OZEMPIC) 2 mg/dose (8 mg/3 mL) pen injector injection Inject 2 mg under the skin every7 days 9 mL 1 sennosides (Laxative Maximum Strength) 25 mg tablet 25 mg daily simethicone (MYLICON) 80 mg chewable tablet 1 tablet (80 mg total) 4 (four) times a day venlafaxine XR (EFFEXOR-XR) 75 mg 24 hr capsule Take 3 capsules (225 mg total) by mouth nightly VENTOLIN HFA 90 mcg/actuation inhaler TAKE 2 PUFFS BY MOUTH EVERY 4 HOURS NEEDED FOR WHEEZING 1 vit A,C and M-rxpgpd-xfzrjjgx (OCUVITE with LUTEIN) 1,000 unit-200 mg-60 unit-2 mg tablet Take 1 tablet by mouth daily zolpidem (AMBIEN) 10 mg tablet TAKE 1 TABLET BY MOUTH AT BEDTIME NEEDED 1 [DISCONTINUED] semaglutide (OZEMPIC) 1 mg/dose (4 mg/3 mL) pen injector injection Inject 1 mg underthe skin every 7 days 3 mL 0 No facility-administered encounter medications on file as of 05/29/2023. Review of Systems: Review of Systems Constitutional: [...] not nervous/anxious and is not hyperactive. BP 114/90 Pulse (!) 134 Temp 37.3 ??C (99.2 ??F) (Oral) Ht 165.1 cm (5' 5) Wt 128.4 kg (283 lb 1.6 oz) SpO2 97% BMI 47.11 kg/m?? Physical Exam: Physical Exam Constitutional: He [...] Diagnoses and all orders for this visit: Abnormal weight gain (Primary) - semaglutide (OZEMPIC) 2 mg/dose (8 mg/3 mL) pen injector injection; Inject 2 mg under the skin every 7 days Class 3 severe obesity due to excess calories with serious comorbidity and body mass index (BMI) of45.0 to 49.9 in adult ([facility]) - semaglutide (OZEMPIC) 2 mg/dose (8 mg/3 mL) pen injector injection; Inject 2 mg under the skin every 7 days Metabolic syndrome - semaglutide (OZEMPIC) 2 mg/dose (8 mg/3 mL) pen injector injection; Inject 2 mg under the skin every 7 days Controlled type 2 diabetes mellitus without complication, without long-term current use of insulin ([facility]) ([facility]) Comments: Chronic. Uncontrolled. Increase Ozempic 2mg weekly. Orders: - semaglutide (OZEMPIC) 2 mg/dose (8 mg/3 mL) pen injector injection; Inject 2 mg under the skin every 7 days Body mass index is 47.11 kg/m??. BMI Plan: Nutrition/Activities/Behavioral Counseling. Education Provided. Follow up 1-3 months. Bolivar Ricks MD [employer] documented in this encounter Miscellaneous Notes * Addendum Note - Bolivar Ricks MD - 05/29/2023 11:45 AM CSTAddended by: BOLIVAR RICKS on: 05/29/2023 12:16 PM Modules accepted: Orders [employer] documented in this encounter Plan of Treatment Not on file documented as of this encounter Visit Diagnoses Diagnosis Abnormal weight gain- Primary Class 3 severe obesity due to excess calories with serious comorbidity and body mass index (BMI) of 45.0 to 49.9 in adult ([facility]) Metabolic syndrome Dysmetabolic Syndrome X Controlled type 2 diabetes mellitus without complication, without long-term current use of insulin (CMS/HCC) ([facility]) documented in this encounter Discontinued Medications Medication Sig Discontinue Reason Start Date End Da te semaglutide (OZEMPIC) 1 mg/dose (4 mg/3 mL) pen injector injection Inject 1 mg under the skin every 7 days Therapy completed 04/30/2023 05/29/2023 semaglutide (OZEMPIC) 2 mg/dose (8 mg/3 mL) pen injector injectionIndications:Clas s 3 severe obesity due to excess calories with serious comorbidity and body mass index (BMI) of 45.0 to 49.9 in adult ([facility]),Abnormal weight gain,Metabolic syndrome,Controlled type 2 diabetes mellitus without complication, without long-term current use of insulin ([facility]) ([facility]) Inject 2 mg under the skin every 7 days Reorder 05/29/2023 05/29/2023 documented as of this encounter Care Teams Senior Linux Administrator Relationship Specialty Start Date End Date Keyonna Armstrong PA PCP - General Nurse Practitioner 06/20/18 Gasper Ochoa MD [address] [place] [address] Consulting Physician Pain Management 08/31/21 documented as of this encounter
--- OUTSIDE RECORDS SUMMARY | 2024-07-10 23:17 | XMS_ITS | Encounter Summary ---
Author Organization [facility] Healthcare Address [address] [place] [address] Care Team Providers Care Fur Tanner Name Role Phone Keyonna Armstrong Primary Care Provider + Gasper Ochoa MD Unavailable Reason for Visit * Reason Onset Date Comments Medication Request 05/30/2023 Encounter Details Date Type Department Care Team (Late st Contact Info) Description 05/30/[address] 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 Not on file Not on leeann e documented as of this encounter Ordered Prescriptions Prescription Sig Dispense Quantity Refills Last Filled Start Date End Date tirzepatide (Mounjaro) 2.5 mg/0.5 mL pen injectorIndication s:type 2 diabetes mellitus Inject 0.5 mL (2.5 mg total) under the skin once a week for 28 days 2 mL 05/30/2023 06/18/2023 documented in this encounter Miscellaneous Notes * Telephone Encounter - Jeimy Salgado - 05/30/2023 4:29 PM CST Call Back Caller???s Concern: Patient returning phone call, advised that Mounjaro has been sent to pharmacy and pharmacy confirmed receiving at 2:33pm. Does message need to be routed? No ING YARDAGE CONTROL OPERATOR * Telephone Encounter - Nirmala Lancaster MA - 05/30/2023 2:32 PM CST Mounjaro should be covered for diabetic dx Will send starting dose to pharm ING YARDAGE CONTROL OPERATOR * Telephone Encounter - Mark Wheat MD - 05/30/2023 1:13 PM CST No other options. She may have to go back on ozempic 1mg. She can check with her insurance rather wegovy or Mounjaro covered. ING YARDAGE CONTROL OPERATOR * Telephone Encounter - Jessica Edouard RN - 05/30/2023 11:00 AM FORMING YARDAGE CONTROL OPERATOR Insurance won't cover 1 mg 2 shots every 7 days, please advise on what to do since Ozempic 2 mg is on back order ING YARDAGE CONTROL OPERATOR * Telephone Encounter - Jeni Ellis - 05/30/2023 10:45 AM CST Call Back Caller???s Concern: Pt is calling following up on a message that was sent in earlier. CS informed patient that provider has not responded and she will be sure to receive a call when provider responds. Please follow up with patient. Does message need to be routed? Yes-Action Needed ING YARDAGE CONTROL OPERATOR * Telephone Encounter - Marcella López - 05/30/2023 8:46 AM CST Medication Question/Clarification Medication Name(s): ozempic 2 mg What is the question or clarification needed? Patient has called around and no one has the 2 mg in stock. Wants to know if 2 of the 1 mg or perhaps another prescription could be called in. Please advise. If needed, Pharmacy(s) medication(s) should be sent to: [facility] [place] Additional Comments: Please advise. Patient has been out for two days and was told she shouldn't skip any days, so sending high priority. Does message need to be routed? Yes-Action Needed ING YARDAGE CONTROL OPERATOR documented in this encounter Plan of Treatment Not on file documented as of this encounter Visit Diagnoses Diagnosis Controlled type 2 diabetes mellitus without complication, without long-term current use of insulin ([facility]) ([facility])- Primary documented in this encounter Discontinued Medications Medication Sig Discontinue Reason Start Date End Da te semaglutide (OZEMPIC) 2 mg/dose (8 mg/3 mL) pen injector injectionIndications:Clas s 3 severe obesity due to excess calories with serious comorbidity and body mass index (BMI) of 45.0 to 49.9 in adult ([facility]),Abnormal weight gain,Metabolic syndrome,Controlled type 2 diabetes mellitus without complication, without long-term current use of insulin ([facility]) ([facility]) Inject 2 mg under the skin every 7 days Availability 05/29/2023 05/30/2023 documented as of this encounter Care Teams Fur Tanner Relationship Specialty Start Date End Date Keyonna Armstrong PA PCP - General Nurse Practitioner 06/20/18 Gasper Ochoa MD [address] [place] [address] Consulting Physician Pain Management 08/31/21 documented as of this encounter
--- OUTSIDE RECORDS SUMMARY | 2024-07-10 23:17 | XMS_ITS | Encounter Summary ---
Author Organization [facility] Healthcare Address [address] [place] [address] Care Team Providers Care Hip Hop Performers Name Role Phone Keyonna Armstrong Primary Care Provider + Gasper Ochoa MD Unavailable Reason for Visit * Reason Comments Weight Management Encounter Details Date Type Department Care Team (Late st Contact Info) Description 11/27/2023 1:00 PM CDT Office Visit [facility] Medical Group Family Medicine at [address] [place] [address] Mark Wheat MD [address] [place] [phone] Controlled type 2 diabetes mellitus without complication, without long-term current use of insulin ([facility]) ([facility]) (Primary Dx); Class 3 severe obesity due to excess calories without serious comorbidity with body mass index (BMI) of 40.0 to 44.9 in adult ([facility]) Social History Tobacco Use Types Packs/Day [...] on file 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 Gender Identity Not on file Sexual Orientation Not on file 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 Not on file Not on leeann e documented as of this encounter Last Filed Vital Signs Vital Sign Reading Time Taken Comments Blood Pressure 122/80 11/27/2023 12:47 PM CDT Pulse 121 11/27/2023 12:47 PM CDT Temperature 36.6 ??C (97.9 ??F) 11/27/2023 1 2:47 PM CDT Respiratory Rate 14 11/27/2023 12:4 7 PM CDT Oxygen Saturation 93% 11/27/2023 12: 47 PM CDT Inhaled Oxygen Concentration - - Weight 118.5 kg (261 lb 4.8 oz) 024 12:47 PM CDT Height 165.1 cm (5' 5) 11/27/2023 12:4 7 PM CDT Body Mass Index 43.48 11/27/2023 12:47 PM CDT documented in this encounter Ordered Prescriptions Prescription Sig Dispense Quantity Refills Last Filled Start Date End Date tirzepatide (Mounjaro) 12.5 mg/0.5 mL pen injectorIndication s:Controlled type 2 diabetes mellitus without complication, without long-term current use of insulin ([facility]) ([facility]) Inject 12.5 mg under the skin every 7 days 6 mL 1 11/27/2023 03/21/2024 documented in this encounter Progress Notes * Mark Wheat MD - 11/27/2023 1:00 PM CDT Images from the original note were not included. Visit date: 11/27/2023 Patient ID: Veronica Evangelista is a 53 y.o. female. Chief Complaint. Chief Complaint Patient presents with Weight Management HPI. Patient is a 53 y.o. female HPI Lifestyle Medicine For Weight Management: Previous Dietary Approaches: Not on any specific Diet ZENON: yes, and is not using CPAP Mental Health: Stable Diabetes: No Previous History of Weight Loss Surgery: Gastric Bypass First Visit Date: 07/12/22 First Visit Weight: 298lb 05/29/23: 283lb 08/28/23: 273lb 11/27/23: 261lb Dates: Weight (lb) Wt Readings from Last 3 Encounters: 11/27/23 118.5 kg (261 lb 4.8 oz) 11/26/23 123.8 kg (273 lb) 08/28/23 124 kg (273 lb 4.8 oz) Total Weight Loss: 37lb Treatment: Medication: Phentermine couldn't tolerate Meal Replacement/Delivery: No Specific Diet: Not on any specific Diet Food Diary: No Activity: is walking and [place] 5000 to [id number] Past Medical History: Diagnosis Date Anxiety Arthropathy [...] Current Medications: Outpatient Encounter Medications as of 11/27/2023 Medication Sig Dispense Refill amLODIPine (NORVASC) 5 [...] day As needed only) 90 capsule 3 ibuprofen (ADVIL,MOTRIN) 800 mg tablet lisinopril (PRINIVIL,ZESTRIL) [...] Strength) 25 mg tablet 25 mg daily tirzepatide (Mounjaro) 10 mg/0.5 mL pen injector INJECT 10 MG UNDER THE SKIN EVERY 7 DAYS 3 mL 1 venlafaxine XR (EFFEXOR-XR) 75 mg 24 hr capsule Take 3 capsules (225 mg total) by mouth daily zolpidem (AMBIEN) 10 mg tablet TAKE 1 TABLET BY MOUTH AT BEDTIME NEEDED 1 hydroCHLOROthiazide (HYDRODIURIL) 25 mg tablet Take 1 tablet (25 mg total) by mouth every morning (Patient not taking: Reported on 11/27/2023) 0 mirtazapine (REMERON) 15 mg tablet Take 1 tablet (15 mg total) by mouth nightly (Patient not taking: Reported on 11/27/2023) tirzepatide (Mounjaro) 12.5 mg/0.5 mL pen injector Inject 12.5 mg under the skin every 7 days 6 mL 1 [DISCONTINUED] diclofenac sodium (VOLTAREN) 1 % gel Apply 4 g topically 4 (four) times a day [DISCONTINUED] fluticasone propionate (FLONASE) 50 mcg/actuation nasal spray SPRAY 1 SPRAY INTO EACH NOSTRIL EVERY DAY [DISCONTINUED] Lactobacillus acidophilus (Probiotic) 10 billion cell capsule Rx: Probiotic - Capsule [DISCONTINUED] NOT IN DATABASE, PRESCRIPTION, Spark Zinc and Selenium supplement for thyroid [DISCONTINUED] ondansetron (ZOFRAN) 4 mg tablet Take 1 tablet (4 mg total) by mouth every 6 (six) hours as needed for nausea or vomiting. 15 tablet 1 [DISCONTINUED] simethicone (MYLICON) 80 mg chewable tablet 1 tablet (80 mg total) 4 (four) times a day [DISCONTINUED] VENTOLIN HFA 90 mcg/actuation inhaler TAKE 2 PUFFS BY MOUTH EVERY 4 HOURS NEEDED FOR WHEEZING 1 [DISCONTINUED] vit A,C and U-mahozy-ltwftctr (OCUVITE with LUTEIN) 1,000 unit- 200 mg-60 unit-2 mg tablet Take 1 tablet by mouth daily No facility-administered encounter medications on file as of 11/27/2023. Review of Systems: Review of Systems Constitutional: [...] not nervous/anxious and is not hyperactive. BP 122/80 (BP Location: Right arm, Patient Position: Sitting) Pulse 121 Temp 36.6 ??C (97.9 ??F) (Oral) Resp 14 Ht 165.1 cm (5' 5) Wt 118.5 kg (261 lb 4.8 oz) SpO2 93% BMI 43.48 kg/m?? Physical Exam: Physical Exam Constitutional: He [...] complication, without long-term current use of insulin ([facility]) ([facility]) (Primary) Comments: Chronic. Uncontrolled. Increase Mounjaro 12.5mg Weekly. Orders: - tirzepatide (Mounjaro) 12.5 mg/0.5 mL pen injector; Inject 12.5 mg under the skin every 7 days Class 3 severe obesity due to excess calories without serious comorbidity with body mass index (BMI) of 40.0 to 44.9 in adult ([facility]) Recommended aggressive Lifestyle modification and weight loss for improving overall weight related health conditions. Follow up in 1 or 3 months for continuing Lifestyle Medicine education and management visit. Recommend Lifestyle/Nutrition/Weight Loss Seminar on every other Tuesdays @ 5pm. Body mass index is 43.48 kg/m??. BMI Plan: Nutrition/Activities/Behavioral Counseling. Education Provided. Follow up 1-3 months. Mark Wheat MD documented in this encounter Plan of Treatment Not on file documented as of this encounter Visit Diagnoses Diagnosis Controlled type 2 diabetes mellitus without complication, without long-term current use of insulin ([facility]) ([facility])- Primary Class 3 severe obesity due to excess calories without serious comorbidity with body mass index (BMI) of 40.0 to 44.9 in adult (HCC) documented in this encounter Discontinued Medications Medication Sig Discontinue Reason Start Date End Da te diclofenac sodium (VOLTAREN) 1 % gel Apply 4 g topically 4 (four) times a day Therapy completed 05/25/2021 11/27/2023 fluticasone propionate (FLONASE) 50 mcg/actuation nasal spray SPRAY 1 SPRAY INTO EACH NOSTRIL EVERY DAY Therapy completed 01/03/2021 11/27/2023 Lactobacillus acidophilus (Probiotic) 10 billion cell capsule Rx: Probiotic - Capsule Therapy completed 11/27/2023 NOT IN DATABASE, PRESCRIPTION, Spark Zinc and Selenium supplement for thyroid Therapy completed 11/27/2023 ondansetron (ZOFRAN) 4 mg tablet Take 1 tablet (4 mg total) by mouth every 6 (six) hours as needed for nausea or vomiting. Therapy completed 08/07/2018 11/27/2023 simethicone (MYLICON) 80 mg chewable tablet 1 tablet (80 mg total) 4 (four) times a day Therapy completed 11/27/2023 VENTOLIN HFA 90 mcg/actuation inhaler TAKE 2 PUFFS BY MOUTH EVERY 4 HOURS NEEDED FOR WHEEZING Therapy completed 06/10/2018 11/27/2023 vit A,C and L-jtgcrb-siivyqeo (OCUVITE with LUTEIN) 1,000 unit-200 mg-60 unit-2 mg tabletIndications:Vitam in Deficiency Prevention Take 1 tablet by mouth daily 11/27/2023 documented as of this encounter Historical Medications * This list may reflect changes made after this encounter. amLODIPine (NORVASC) 5 mg tablet Take 1 tablet (5 mg total) by mouth daily 11/07/2023 diphenhydrAMINE-a cetaminophen (TYLENOL PM) 25-500 mg tablet Take 1 tablet by mouth daily estradioL (VIVELLE-DOT) 0.05 mg/[address] 1 patch on the skin 2 (two) times a week 09/20/2023 07/01/2024 added in this encounter Care Teams Hip Hop Performers Relationship Specialty Start Date End Date Keyonna Armstrong PA PCP - General Nurse Practitioner 06/20/18 Gasper Ochoa MD [address] [place] [address] Consulting Physician Pain Management 08/31/21 documented as of this encounter
--- OUTSIDE RECORDS SUMMARY | 2024-07-10 23:17 | XMS_ITS | Encounter Summary ---
Author Organization [facility] Address [address] [place] [address] Care Team Providers Care Computer Hardware Developer Name Role Phone Keyonna Armstrong Primary Care Provider + Gasper Ochoa MD Unavailable Encounter Details Date Type Department Care Team (Late st Contact Info) Description 01/20/[address] 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 Not on file Not on leeann e documented as of this encounter Miscellaneous Notes * Telephone Encounter - Nelsy Bolden MA - 01/20/2022 1:03 PM CDT Left voicemail to patient advising to call back and reschedule pt's 01/25/22 apt with rick to [facility] documented in this encounter Plan of Treatment Not on file documented as of this encounter Visit Diagnoses Not on filedocumented in this encounter Care Teams Computer Hardware Developer Relationship Specialty Start Date End Date Keyonna Armstrong PA PCP - General Nurse Practitioner 06/20/18 Gasper Ochoa MD [address] [place] [address] Consulting Physician Pain Management 08/31/21 documented as of this encounter
--- OUTSIDE RECORDS SUMMARY | 2024-07-10 23:17 | XMS_ITS | Encounter Summary ---
Author Organization [facility] Address [address] [place] [address] Care Team Providers Care Scada Operator Name Role Phone Keyonna Armstrong Primary Care Provider + Gasper Ochoa MD Unavailable Reason for Visit * Reason Onset Date Comments Appointment Request 05/21/2023 Encounter Details Date Type Department Care Team (Late st Contact Info) Description 05/21/[address] 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 - 05/21/2023 1:50 PM CDT Appt made for 05/29/2023. * Telephone Encounter - Eleanor Chappell - 05/21/2023 1:49 PM CDT Call Back Caller???s Concern: Patient call back. No new dates showing until 07/19. Called back line, patient needs to be seen in May. Does message need to be routed? No * Telephone Encounter - Fabiola Torres. - 05/21/2023 1:41 PM CDT LM with patient to RS Appt * Telephone Encounter - Precious Young - 05/21/2023 1:33 PM CDT Appointment Request What visit type does the patient need? Visit Type: WT MGMT What is the reason for the visit? Weight loss management What is the reason we were unable to schedule the appointment? Current appointment availability didnot meet patient's need. If applicable, were all members of the patient's PCP care team offered (e.g., nurse practioner(s), physician assistant sales director(s)) ? Yes Additional Comments: Pt is requesting to reschedule her weight loss appt in May early in the month. She has to reschedule her appt that was scheduled for 05.24.23 because her daughter is graduating on that day. Please advise Does message need to be routed? Yes-Action Needed documented in this encounter Plan of Treatment Not on file documented as of this encounter Visit Diagnoses Not on filedocumented in this encounter Care Teams Scada Operator Relationship Specialty Start Date End Date Keyonna Armstrong PA PCP - General Nurse Practitioner 06/20/18 Gasper Ochoa MD [address] [place] [address] Consulting Physician Pain Management 08/31/21 documented as of this encounter
--- OUTSIDE RECORDS SUMMARY | 2024-07-10 23:17 | XMS_ITS | Encounter Summary ---
Author Organization [facility] Address [address] [place] [address] Care Team Providers Care Room Cleaner Name Role Phone Keyonna Armstrong Primary Care Provider + Gasper Ochoa MD Unavailable Reason for Visit * Reason Comments Weight Management Encounter Details Date Type Department Care Team (Late st Contact Info) Description 08/17/2022 10:15 AM DIMENSIONAL INTEGRATION ENGINEER Telemedicine [facility] Family Medicine at [address] [place] [address] Mark Wheat MD [address] [place] [address] [address] [place] [address] Abnormal platelets (CMS/HCC) ([facility]) (Primary Dx); Class 3 severe obesity due to excess calories with serious comorbidity and body mass index (BMI) of 45.0 to 49.9 in adult ([facility]) Social History Tobacco Use Types Packs/Day Years [...] on file 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 Gender Identity Not on file Sexual Orientation Not on file 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 Not on file Not on leeann e documented as of this encounter Last Filed Vital Signs Vital Sign Reading Time Taken Comments Blood Pressure - - Pulse - - Temperature - - Respiratory Rate - - Oxygen Saturation - - Inhaled Oxygen Concentration - - Weight 127 kg (280 lb) 08/17/2022 10:17 AM DIMENSIONAL INTEGRATION ENGINEER Height 165.1 cm (5' 5) 08/17/2022 10:17 AM DIMENSIONAL INTEGRATION ENGINEER Body Mass Index 46.59 08/17/2022 10:17 AM DIMENSIONAL INTEGRATION ENGINEER documented in this encounter Ordered Prescriptions Prescription Sig Dispense Quantity Refills Last Filled Start Date End Date phentermine 30 mg capsuleIndications :Abnormal platelets (CMS/HCC) (HCC),Class 3 severe obesity due to excess calories with serious comorbidity and body mass index (BMI) of 45.0 to 49.9 in adult (HCC) Take 1 capsule (30 mg total) by mouth roll tube setter before breakfast 90 capsule 08/17/2022 3 documented in this encounter Progress Notes * Mark Wheat MD - 08/17/2022 10:15 AM CST Images from the original note were not included. Visit date: 08/17/2022 Patient ID: Veronica Evangelista is a 51 y.o. female. Chief Complaint. Chief Complaint Patient presents with Weight Management HPI. Patient is a 51 y.o. female HPI Lifestyle Medicine For Weight Management: Previous Dietary Approaches: Not on any specific Diet ZENON: yes, and is not using CPAP Mental Health: Stable Diabetes: No Previous History of Weight Loss Surgery: Gastric Bypass First Visit Date: 07/12/22 First Visit Weight: 298lb 08/17/22: 280lb Dates: Weight (lb) Wt Readings from Last 3 Encounters: 08/17/22 127 kg (280 lb) 05/22/22 124.7 kg (275 lb) 10/13/21 124.7 kg (275 lb) Total Weight Loss: 18lb Treatment: Medication: Phentermine Meal Replacement/Delivery: No Specific Diet: Not on any specific Diet Food Diary: No Activity: is walking and Daily Steps [place] 5000 to [address] Past Medical History: Diagnosis Date Anxiety Arthropathy [...] Current Medications: Outpatient Encounter Medications as of 08/17/2022 Medication Sig Dispense Refill buPROPion SR (WELLBUTRIN SR) 150 mg 12 hr tablet Take 1 tablet by mouth 2 (two) times a day fluticasone propionate (FLONASE) 50 mcg/actuation nasal spray SPRAY 1 SPRAY INTO EACH NOSTRIL EVERYDAY hydroCHLOROthiazide (HYDRODIURIL) 25 mg tablet Take 25 mg by mouth every morning. 0 lisinopril (PRINIVIL,ZESTRIL) 40 mg tablet Take 40 mg by mouth every morning. 0 LORazepam (ATIVAN) 1 mg tablet metFORMIN (GLUCOPHAGE) 500 mg tablet TAKE 1 TABLET BY MOUTH EVERY MORNING AND TAKE 2 TABLETS AT BEDTIME 1 methocarbamoL (ROBAXIN) 750 mg tablet TAKE 1 TO 2 TABLETS BY MOUTH 3 TIMES A DAY NEEDED metoprolol XL (TOPROL-XL) 100 mg 24 hr tablet Take 100 mg by mouth nightly. 1 Mimvey 1-0.5 mg per tablet Take 1 tablet by mouth daily multivitamin tablet Take 1 tablet by mouth every morning. NOT IN DATABASE, PRESCRIPTION, Spark Zinc and Selenium supplement for thyroid pantoprazole DR (PROTONIX) 20 mg EC tablet 20 mg venlafaxine XR (EFFEXOR-XR) 75 mg 24 hr capsule Take 225 mg by mouth nightly. VENTOLIN HFA 90 mcg/actuation inhaler TAKE 2 PUFFS BY MOUTH EVERY 4 HOURS NEEDED FOR WHEEZING 1 vit A,C and V-kihkrg-ogqsvoov (OCUVITE with LUTEIN) 1,000 unit-200 mg-60 unit-2 mg tablet Take 1 tablet by mouth daily zolpidem (AMBIEN) 10 mg tablet TAKE 1 TABLET BY MOUTH AT BEDTIME NEEDED 1 [DISCONTINUED] phentermine 15 mg capsule Take 1 capsule by mouth roll tube setter before breakfast acetaminophen-codeine (TYLENOL with CODEINE #3) 300-30 mg per tablet (Patient not taking: Reported on 09/14/2021) amLODIPine (NORVASC) 5 mg tablet Take 5 mg by mouth. (Patient not taking: Reported on 09/14/2021) aspirin 81 mg chewable tablet 81 mg daily (Patient not taking: Reported on 08/23/2021) cholecalciferol (VITAMIN D-3) 5,000 unit capsule Take 5,000 Units by mouth every morning (Patient not taking: Reported on 07/12/2022) cyclobenzaprine (FLEXERIL) 10 mg tablet TAKE 1 TABLET BY MOUTH THREE TIMES A DAY NEEDED FOR MUSCLE SPASM (Patient not taking: Reported on 08/17/2022) diclofenac sodium (VOLTAREN) 1 % gel Apply 4 g topically 4 (four) times a day (Patient not taking: Reported on 08/23/2021) gabapentin (NEURONTIN) 100 mg capsule TAKE 1 CAPSULE BY MOUTH THREE TIMES A DAY (Patient not taking: Reported on 08/17/2022) 90 capsule 0 glucosamine/chondr hernadez A sod (OSTEO BI-FLEX ORAL) Take 1 tablet by mouth every morning (Patient not taking: Reported on 08/17/2022) ibuprofen (ADVIL,MOTRIN) 800 mg tablet (Patient not taking: Reported on 08/17/2022) Lactobacillus acidophilus (Probiotic) 10 billion cell capsule Rx: Probiotic - Capsule (Patient not taking: No sig reported) Larissia 0.1-20 mg-mcg per tablet (Patient not taking: Reported on 06/02/2021) ondansetron (ZOFRAN) 4 mg tablet Take 1 tablet (4 mg total) by mouth every 6 (six) hours as needed for nausea or vomiting. (Patient not taking: Reported on 10/07/2021) 15 tablet 1 oxyCODONE (ROXICODONE) 5 mg immediate release tablet Take 1 tablet (5 mg total) by mouth every 4 (four) hours as needed for pain. (Patient not taking: Reported on 10/07/2021) 20 tablet 0 phentermine 30 mg capsule Take 1 capsule (30 mg total) by mouth roll tube setter before breakfast 90 capsule 0 sennosides (Laxative Maximum Strength) 25 mg tablet 25 mg daily (Patient not taking: Reported on 08/23/2021) simethicone (MYLICON) 80 mg chewable tablet 80 mg 4 (four) times a day (Patient not taking: Reported on 09/14/2021) No facility-administered encounter medications on file as of 08/17/2022. Review of Systems: Review of Systems Constitutional: [...] patientis not nervous/anxious and is not hyperactive. Ht 165.1 cm (5' 5) Wt 127 kg (280 lb) BMI 46.59 kg/m?? Physical Exam: Physical Exam This was a telemedicine visit with Veronica priest which took place via real-time video connection with [employer] During the visit, I was located at the [facility] [address] and patient was located at home in the state of [place]. The video session started at 10 :30am andended at 11:00am The patient has been informed that the visit may not be secure and acknowledged the information. I have explained the option of participating in a telephone or video visit during the COVID-19 public health emergency to the patient. After being given an opportunity to ask questions about and discuss this type of visit, the patient verbally consented to proceeding with the telephone/video visit.The patient understands that this service replaces an office visit and they may be billed and/or responsible for any applicable copayments. Assessment & Plan: Diagnoses and all orders for this visit: Abnormal platelets (CMS/HCC) (HCC) (Primary) - phentermine 30 mg capsule; Take 1 capsule (30 mg total) by mouth roll tube setter before breakfast Class 3 severe obesity due to excess calories with serious comorbidity and body mass index (BMI) of45.0 to 49.9 in adult (HCC) - phentermine 30 mg capsule; Take 1 capsule (30 mg total) by mouth roll tube setter before breakfast Discussed/Re-emphasized Diet (90%) + Physical Activity (10%) Plan: Discussed/Re-emphasized Vegetables/Fruits Nutritional Ranking Handout: Recommended >80% caloriesfrom Whole Food Plant Based Nutrition. Discussed/Re-emphasized Processed Food (Frozen, Canned, Fast, Refined...) vs. Whole Food/Organic/Non-GMO Discussed/Re-emphasized High Fiber Diet: How to increase fibers in diet Handout being provided. Discussed/Re-emphasized [place]/Phytochemicals Diet. Disucssed/Re-emphasized [place] Diet: Grocery List and Weekly Meal Plan provided. Discussed/Re-emphasized Low Carb Diet (<50g/day) with approximately Low Calories (<1200kcal/day): Grocery List, Daily Meal Plan and Healthy Alternative being provided. Discussed/Re-emphasized Non-weight bearing exercise to complete average 7500- 51334 steps per day: Swimming or Stationary Exercise Bike. Disccused/Re-emphasized ZENON/CPAP/Sleep. Disccused/Re-emphasized Good Carb/Protein/Fat. Discussed/Re-emphasized Glycemic Index/Load to determine Good vs. Bad Carbs. Discussed/Re-emphasized Behaviroral Modification to reduce stress by Yoga and Mindfulness. Discussed/Re-emphasized Small (<250kcal) vs. Large Meals (<450kcal) Based on Calories, not volume: Approximately Small Meals x 3 + Large Meal x 1 (Preferably Lunch). Discussed/Re-emphasized Small Meal Intermittent Snacking (<250kcal): Nuts (Soaked in water overnight), Berries, Seeds, Dried/Fresh Fruits/Vegetables. Discussed/Re-emphasized Energy Options: Vitamin B12 Tablets (2 hours prior to Dinner), Caffeine Tablets (in AM or Lunch Time) or FDA Approved Weight Loss Prescription Medications. Discussed/Re-emphasized Weight loss Medications in detail including side effects: Phenteramine, Qsymia, Belviq, Contrave, Saxenda! Consider OTC Meal Replacement Plans or Home Delivery Meal Plans. Encourage Monthly office visits to ensure accountability and continuous positive weight outcomes. General Guidelines: 1. Restrict Caloric Intake: Instead of calculating total calories, you can eliminate one food item from daily intake at a time that would be worth of 100- 200 kcal. Minimize Processed carbohydrates (Potatoes, Pasta, Bread, rice and corn) and processed sugars (Sodas, Cookies, Donuts & Desserts). Small plates and bowels. Small meals (Under 250kcal) at a time! 2. Quality of Diet: Organic, Non-GMO, fresh, raw-food, whole-food & more fruits and vegetables.Look for lean protein (Soy, Lentils, beans, legumes and nuts). Avoid processed food (frozen, canned, fast-food). Shop food economically from multiple places. 3. Stress Reduction: Yoga, Mindfulness, Exercise, Volunteering, Spirituality! Mindfulness eating (Avoid multi-tasking while eating and Increase awareness of what food is doing to Body). 4. Quality Restful Sleep: Melatonin, Yoga-Nidra, Kiwi fruit. Avoid meals in last two hours of the day. Avoid Caffeine, alcohol, high sugar/desserts and tobacco with or after dinner. 5. Increase Exertion within Daily Activities: 7500-72262 Steps/day. Avoid Elevators, escalators at public places. Increase steps in parking lots!. Office Visit based on Time: I have spent more than 30 minutes Face to Face and hmh-sxdf-dk-face activities with Patient during office visit and on the date of service. Tgy-xvlb-lb-face activities included Preparing to see the patient (including review of tests) I had spent total time toward Detailed Counselling including various kinds of Dietory methods, activities, medications and potential weight loss surgical options. Detailed Handouts on each topics were also printed and hand-delivered to the patient. Body mass index is 46.59 kg/m??. BMI Plan: Nutrition/Activities/Behavioral Counseling. Education Provided. Follow up 1-3 months. Mark Wheat MD NSIONAL INTEGRATION ENGINEER documented in this encounter Plan of Treatment Not on file documented as of this encounter Visit Diagnoses Diagnosis Abnormal platelets (CMS/HCC) ([facility])- Primary Class 3 severe obesity due to excess calories with serious comorbidity and body mass index (BMI) of 45.0 to 49.9 in adult ([facility]) documented in this encounter Discontinued Medications Medication Sig Discontinue Reason Start Date End Da te phentermine 15 mg capsule Take 1 capsule by mouth roll tube setter before breakfast Reorder 07/12/2022 08/17/2022 documented as of this encounter Historical Medications * This list may reflect changes made after this encounter. cyclobenzaprine (FLEXERIL) 10 mg tablet TAKE 1 TABLET BY MOUTH THREE TIMES A DAY NEEDED FOR MUSCLE SPASM 11/27/2021 3 phentermine 15 mg capsule Take 1 capsule by mouth roll tube setter before breakfast 07/12/2022 3 added in this encounter Care Teams Room Cleaner Relationship Specialty Start Date End Date Keyonna Armstrong PA PCP - General Nurse Practitioner 06/20/18 Gasper Ochoa MD [address] [place] [address] Consulting Physician Pain Management 08/31/21 documented as of this encounter
--- OUTSIDE RECORDS SUMMARY | 2024-07-10 23:17 | XMS_ITS | Referral Summary ---
Author Organization [facility] [address] [place] [id number] Care Team Providers Care Compliance Officer Name Role Phone Keyonna Armstrong Primary Care Provider + Gasper Ochoa MD Unavailable Encounters Date Type Department Care Team Description 07/01/2024 11:00 AM POLICE COMMISSIONER Office Visit [facility] Family Medicine at [address] [place] [address] Mark Wheat MD Controlled type 2 diabetes mellitus without complication, without long-term current use of insulin (CMS/HCC) (HCC) (Primary Dx); Class 2 obesity due to excess calories without serious comorbidity with body mass index (BMI) of 39.0 to 39.9 in adult 05/21/2024 8:00 AM CDT Office Visit [facility] Orthopedics and Sports Medicine [address] [place] [address] [address] [place] [address] Valentina Curtis NP Myalgia, other site (Primary Dx); Chronic neck [...] pain; DDD (degenerative disc disease), cervical multilevel from Last 3 Months Allergies Active Allergy Reactions Criticality Noted Date Comments Trazodone Hallucinations Medium 08/28/2019 Medications hydroCHLOROthia zide (HYDRODIURIL) 25 mg tablet Take 1 tablet (25 mg total) by mouth every morning 0 8 Active lisinopril (PRINIVIL,ZESTR IL) 40 mg tablet Take 0.5 tablets (20 mg total) by mouth every morning 0 8 Active metFORMIN (GLUCOPHAGE) 500 mg tablet Take 3 tablets (1,500 mg total) by mouth daily 3 tabs in evening for 1500 mg dose 1 8 Active metoprolol XL (TOPROL-XL) 100 mg 24 hr tablet Take 2 tablets (200 mg total) by mouth nightly 1 8 Active zolpidem (AMBIEN) 10 mg tablet TAKE 1 TABLET BY MOUTH AT BEDTIME NEEDED 1 8 Active venlafaxine XR (EFFEXOR-XR) 75 mg 24 hr capsule Take 3 capsules (225 mg total) by mouth daily Active multivitamin tablet Take 1 tablet by mouth every morning Active ibuprofen (ADVIL,MOTRIN) 800 mg tablet 9 Active sennosides (Laxative Maximum Strength) 25 mg tablet 25 mg daily Active buPROPion SR (WELLBUTRIN SR) 150 mg 12 hr tablet Take 1 tablet (150 mg total) by mouth 2 (two) times a day 0 Active LORazepam (ATIVAN) 1 mg tablet Take 0.5 tablets (0.5 mg total) by mouth every 8 (eight) hours as needed for anxiety [address] (PROTONIX) 20 mg EC tablet 1 tablet (20 mg total) 1 Active cranberry extract (Cranberry Juice Powder) 425 mg capsule Take by mouth A ctive mirtazapine (REMERON) 15 mg tablet Take 1 tablet (15 mg total) by mouth nightly Active progesterone (PROMETRIUM) 200 mg capsule Take 1 capsule (200 mg total) by mouth daily 4 Active diphenhydrAMINE -acetaminophen (TYLENOL PM) 25-500 mg tablet Take 1 tablet by mouth daily Active amLODIPine (NORVASC) 5 mg tablet Take 1 tablet (5 mg total) by mouth daily 4 Active gabapentin (NEURONTIN) 100 mg capsuleIndicati ons:Chronic bilateral low back pain without sciatica TAKE 1 CAPSULE BY MOUTH THREE TIMES DAILY 180 capsule 4 Active Marlys 0.075 mg/[address] 1 patch on the skin 2 (two) times a week 4 Active tirzepatide (Mounjaro) 12.5 mg/0.5 mL pen injectorIndicat ions:Controlled type 2 diabetes mellitus without complication, without long-term current use of insulin ([facility]) ([facility]) Inject 12.5 mg under the skin every 7 days 6 mL 3 4 07/01/20 25 Active estradioL (VIVELLE-DOT) 0.05 mg/[address] 1 patch on the skin 2 (two) times a week 4 07/01/20 24 Discontinu ed(Duplica te order) tirzepatide (Mounjaro) 12.5 mg/0.5 mL pen injectorIndicat ions:Controlled type 2 diabetes mellitus without complication, without long-term current use of insulin ([facility]) ([facility]) INJECT 12.5 MG UNDER THE SKIN EVERY 7 DAYS 2 mL 1 4 07/01/20 24 Discontinu ed(Reorder ) Active Problems Problem Noted Date Diagnosed Date Class 2 obesity due to exces s calories without serious comorbidity with body mass index (BMI) of 39.0 to 39.9 in adult 07/01/2024 Abnormal weight gain 08/28/2023 Controlled type 2 diabetes m ellitus without complication, without long-term current use of insulin ([facility]) 08/28/2023 Overview (08/28/2023): chronic. Uncontrolled. Increase Mounjaro 7.5mg weekly Abnormal platelets (CMS/HCC) 03/04/2020 Leukocytosis (leucocytosis) 08/26/2019 Reactive thrombocytosis 08/26/2019 HTN (hypertension) 06/20/2018 PCOS (polycystic ovarian syndrome) 06/20/2018 Depression 06/20/2018 Menorrhagia 04/02/2018 High serum renin 10/25/2017 Adrenal adenoma 10/11/2017 Body mass index (BMI) of 50-59.9 in adult 2017 Chronic fatigue 10/10/2017 Insomnia 10/10/2017 Long-term use of high-risk medication 09/27/2017 Shortness of breath at rest 09/27/2017 Anxiety 09/20/2017 Sinus tachycardia 09/20/2017 Dyslipidemia 05/08/2017 Retention of urine 05/08/2017 Impaired fasting glucose 04/25/2016 Right ovarian cyst 05/31/2015 History of motion sickness 02/13/2014 Class 3 severe obesity due t o excess calories without serious comorbidity with body mass index (BMI) of 45.0 to 49.9 in adult 09/23/2013 Esophageal reflux 04/22/2013 Obstructive sleep apnea 08/02/2012 Resolved Problems Problem Noted Date Diagnosed Date Resolved Date Cholecystitis 06/26/2018 09/05/2018 Overview (06/26/2018): Added automatically from request for surgery [id number] Calculus of gallbladder with acute cholecystitis without obstruction 06/20/20182018 Immunizations Name Administration Dates Next Due DTaP, Unspecified 04/25/2016 Influenza, Quadrivalent, Jocelyn l Culture-based MDCK, Preservative Free, Antibiotic Free, Intramuscular 05/04/2021 Influenza, Quadrivalent, Spl it, Preservative Free, Intramuscular 05/19/2020,04/22/2019,05/16/2018,04/25 Influenza, Unspecified 06/24/2023,2021,05/16/2018,04/25,06/19/2012 Pneumococcal Conjugate PCV 13 04/22/2019 Pneumococcal Conjugate, Unspecified 05/04/2021 Pneumococcal Polysaccharide PPV23 05/04/2021 Tdap 04/25/2016 ZOSTER Recombinant 06/24/2023 Social History Tobacco Use Types Packs/Day Years [...] on file Legal Sex Female 6:41 PM POLICE COMMISSIONER Gender Identity Not on file Sexual Orientation Not on file 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 Not on file Not on leeann e Last Filed Vital Signs Vital Sign Reading Time Taken Comments Blood Pressure 102/72 07/01/2024 11:25 AM POLICE COMMISSIONER Pulse 112 07/01/2024 11:25 AM POLICE COMMISSIONER Temperature 36 ??C (96.8 ??F) 07/01/2024 11: 25 AM POLICE COMMISSIONER Respiratory Rate 18 03/21/2024 10:5 3 AM CDT Oxygen Saturation 96% 07/01/2024 11: 25 AM POLICE COMMISSIONER Inhaled Oxygen Concentration - - Weight 107.8 kg (237 lb 9.6 oz) 024 11:25 AM POLICE COMMISSIONER Height 165.1 cm (5' 5) 07/01/2024 11:2 5 AM POLICE COMMISSIONER Body Mass Index 39.54 07/01/2024 11:25 AM POLICE COMMISSIONER Plan of Treatment Not on file Procedures Procedure Name Priority Date/Time Associated Diagnosis Comments OK INJECTION SINGLE/BATTER DEPOSITOR TRIGGER POINT 1/2 MUSCLES Routine 05/21/2024 8:00 AM CDT Myalgia, other site OK INJECTION SINGLE/BATTER DEPOSITOR TRIGGER POINT 1/2 MUSCLES Routine 05/21/2024 8:00 AM CDT Myalgia, other site COMPREHENSIVE METABOLIC PANEL Routine 07/11/2018 8:19 AM POLICE COMMISSIONER Intestinal malabsorption, unspecified type Bariatric surgery status HEMOGLOBIN A1C Routine 07/11/2018 8:19 AM POLICE COMMISSIONER Intestinal malabsorption, unspecified type Bariatric surgery status LIPID PANEL Routine 07/11/2018 8:19 AM POLICE COMMISSIONER Intestinal malabsorption, unspecified type Bariatric surgery status from Last 3 Months or Most Recently Relevant to Health Maintenance Results * OK INJECTION SINGLE/BATTER DEPOSITOR TRIGGER POINT 1/2 MUSCLES (05/21/2024 8:00 AM [...] procedure well with no immediate complications Valentina Curtis NP IN CLINIC/BEDSIDE ORDERABLE S Final Result * OK INJECTION SINGLE/BATTER DEPOSITOR TRIGGER POINT 1/2 MUSCLES (05/21/2024 8:00 AM [...] IN CLINIC/BEDSIDE ORDERABLE S Final Result * Hemoglobin A1c (07/11/2018 8:19 AM POLICE COMMISSIONER) Hgb A1C 5.1 <5.7 % of total Hgb [facility] [place] Comment: For the purpose of screening for the presence of diabetes: <5.7% ? Consistent with the absence of diabetes 5.7-6.4% ?Consistent with increased risk for diabetes ?(prediabetes) > or =6.5% ??Consistent with diabetes This assay result is consistent with a decreased risk of diabetes. Currently, no consensus exists regarding use of hemoglobin A1c for diagnosis of diabetes in children. According to [place] Diabetes Association (ADA) guidelines, hemoglobin A1c <7.0% represents optimal control in non- diabetic patients. Different metrics may apply to specific patient populations. Standards of Medical Care in Diabetes(ADA). ?? Blood specimen (specimen) 07/11/2018 8:19 AM POLICE COMMISSIONER 07/11/2018 8:20 AM POLICE COMMISSIONER Narrative [facility] - 07/15/2018 8:57 AM POLICE COMMISSIONER FASTING:YES FASTING: YES Resulting Agency Comment Performing Organization Information: ?Site ID: [place] ?Name: [facility] ?Address: [address] [address] [place] [address] ?Director: Servando Cervantes D.O., MPH us Elli Hernandez MD PhD LAB BLOOD ORDERABLES Kiley garrett Result [facility] [place] * (ABNORMAL) Lipid panel (07/11/2018 8:19 AM POLICE COMMISSIONER) Cholesterol 139 <200 mg/dL [facility] HDL 38(L) >50 mg/dL [facility] Triglycerides 204(H) <150 mg/dL [facility] LDL 71 mg/dL (calc) [facility] Comment: Reference range: <100 Desirable [...] LDL-C. Deep SS et al. JAMAR. 2013;310(19): 8168-6915 (http://education.InstrumentLife/faq/PLP392) Chol/HDL ratio 3.7 <5.0 (calc) [facility] Non-HDL, (LDL+VLDL) 101 <130 mg/dL (calc) [facility] Comment: For patients with diabetes plus 1 major ASCVD risk factor, treating to a non-HDL-C goal of <100 mg/dL (LDL-C of <70 mg/dL) is considered a therapeutic option. Blood specimen (specimen) 07/11/2018 8:19 AM POLICE COMMISSIONER 07/11/2018 8:20 AM POLICE COMMISSIONER Narrative [facility] - 07/15/2018 8:57 AM POLICE COMMISSIONER FASTING:YES FASTING: YES Resulting Agency Comment Performing Organization Information: ?Site ID: [place] ?Name: [facility] ?Address: [address] [facility] [place] [address] ?Director: Servando Cervantes D.O., MPH us Elli Hernandez MD PhD LAB BLOOD ORDERABLES Kiley garrett Result [facility] * Comprehensive metabolic panel (07/11/2018 8:19 AM POLICE COMMISSIONER) Glucose 92 65 - 99 mg/dL [facility] [place] Comment: ? Fasting reference interval BUN 21 7 - 25 mg/dL [facility] [place] Creatinine 0.79 0.50 - 1.10 mg/dL [facility] [place] eGFR NON-AFR. [place] 88 > OR = 60 mL/min/1. 73m2 [facility] [place] EGFR 102 > OR = 60 mL/min/1. 73m2 [facility] [place] BUN/creat ratio NOT APPLICABLE 6 - 22 (calc) [facility] [place] Sodium 137 135 - 146 mmol/L [facility] [place] Potassium, pl 4.2 3.5 - 5.3 mmol/L [facility] [place] Chloride 104 98 - 110 mmol/L [facility] [place] CO2 29 20 - 32 mmol/L [facility] [place] Calcium 9.2 8.6 - 10.2 mg/dL [facility] [place] Protein, sr 6.6 6.1 - 8.1 g/dL [facility] [place] Albumin 3.9 3.6 - 5.1 g/dL [facility] [place] GLOBULIN 2.7 1.9 - 3.7 g/dL (calc) [facility] [place] Alb/glob ratio 1.4 1.0 - 2.5 (calc) [facility] [place] Bilirubin, total 0.4 0.2 - 1.2 mg/dL [facility] [place] Alk phos 73 33 - 115 U/L [facility] [place] AST 17 10 - 35 U/L [facility] [place] ALT (SGPT) 16 6 - 29 U/L [facility] [place] Blood specimen (specimen) 07/11/2018 8:19 AM POLICE COMMISSIONER 07/11/2018 8:20 AM POLICE COMMISSIONER Narrative [facility] - 07/15/2018 8:57 AM POLICE COMMISSIONER FASTING:YES FASTING: YES Resulting Agency Comment Performing Organization Information: ?Site ID: [place] ?Name: [facility] ?Address: [address] [place] [address] ?Director: Servando Cervantes D.O., MPH Elli Hernandez MD PhD LAB BLOOD ORDERABLES Kiley l Result [facility] [place] from Last 3 Months or Most Recently Relevant to Health Maintenance Insurance MEDICARE O Care Teams Compliance Officer Relationship Specialty Start Date End Date Keyonna Armstrong PA PCP - General Nurse Practitioner 06/20/18 Gasper Ochoa MD [address] [place] [address] Consulting Physician Pain Management 08/31/21
--- OUTSIDE RECORDS SUMMARY | 2024-07-10 23:17 | XMS_ITS | Encounter Summary ---
Author Organization [facility] Address [address] [place] [address] Care Team Providers Care Rad Tech Name Role Phone Keyonna Armstrong Primary Care Provider + Gasper Ochoa MD Unavailable Reason for Referral * Procedure (Routine) - Closed Specialty Diagnoses / Procedures Referred By Contac t Referred To Contact Diagnoses Myalgia, other site Procedures Trigger Point Injection Valentina Curtis NP [address] [place] [address] [place] [address] Phone: tel: fax: [facility] Referral ID Status Reason Start Date Expiration Date Visits Re quested Visits Authorized [id number] Closed 08/27/2023 09/25/2024 1 1 RMODAL CUSTOMER SERVICE * Procedure (Routine) - Closed Specialty Diagnoses / Procedures Referred By Contac t Referred To Contact Diagnoses Myalgia, other site Procedures Trigger Point Injection Valentina Curtis NP [address] [facility] [address] [place] [address] [place] [address] Phone: tel: fax: [facility] Referral ID Status Reason Start Date Expiration Date Visits Re quested Visits Authorized [id number] Closed 08/27/2023 09/25/2024 1 1 RMODAL CUSTOMER SERVICE Reason for Visit * Reason Comments Pain Encounter Details Date Type Department Care Team (Late st Contact Info) Description 08/27/2023 11:00 AM INTERMODAL CUSTOMER SERVICE Office Visit [facility] Orthopedics and Sports Medicine 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 Not on file Not on leeann e documented as of this encounter Last Filed Vital Signs Vital Sign Reading Time Taken Comments Blood Pressure - - Pulse - - Temperature - - Respiratory Rate - - Oxygen Saturation - - Inhaled Oxygen Concentration - - Weight 128.4 kg (283 lb) 08/27/2023 11:07 AM INTERMODAL CUSTOMER SERVICE Height 165.1 cm (5' 5) 08/27/2023 11:07 AM INTERMODAL CUSTOMER SERVICE Body Mass Index 47.09 08/27/2023 11:07 AM INTERMODAL CUSTOMER SERVICE documented in this encounter Progress Notes * Valentina Curtis NP - 08/27/2023 11:00 AM CSTAssociated Order(s): Trigger Point Injection; Trigger Point Injection Post-Procedure Diagnose(s): Myalgia, other site Reason for Appointment Chronic lumbar pain History of Present Illness: Veronica Evangelista is a 53 y.o. female arrived to the orthopedic department ambulatory, walking with no assisted devices. She is here today requesting to have cortisone trigger point injections for her chronic lumbar pain symptoms. Previous cortisone trigger point injections given May 28, 2023, for similar type lumbar pain symptoms provided 70-80% reduction of lumbar pain and she reports that the cortisone trigger point injections made a big difference in reducing her lumbar pain. She deniesany new injuries and denies any bowel or bladder dysfunction or saddle paresthesia type symptoms. She currently uses ibuprofen and Voltaren gel for pain reduction. Her lumbar pain is worse with activities involving walking and standing. She previously had neck pain symptoms which [...] currently prescribed Mounjaro. Her current BMI is 47.09 Previous conservative treatments and evaluations of her neck and lumbar pain symptoms include the following: She has had previous cortisone trigger point injections for her chronic lumbar pain with her last cortisone trigger point injections given 05/28/2023 She went to [facility] April 2021 and had dry needle therapy and physical therapy which she stopped due to increasing pain. She has home cervical spine range of motion exercises. April 2021-- she went to Dr. Mars, chiropractor at [facility] with no reduction of pain symptoms. 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 Assessment: Diagnosis Plan 1. Myalgia, other [...] bilateral lower lumbar paraspinal muscle region near L4-L5, L5-S1 where there was the more focal area of hyperirritability with palpation. Continue home stretching exercises, walking She plans to continue her weight loss program with Dr. Mark Wheat. She has a follow-up appointment scheduled with me on November 26, 2023 for her chronic lumbar pain symptoms. Imaging [...] There is preservation of vertebral body height. Jjrf-gr-bprafrnj multilevel degenerativeendplate change. Ctss-gw-ufyccyfa facet arthropathy mid through lower lumbar spine. [...] can be obtained as clinically indicated. Multilevel gpot-bi-rfmwncgt endplate degenerative changes with marginal spur formation. [...] indents the ventral cord. Thickened ligamentum flavum. Fzzg-xv-iexozney spinal canal stenosis. Uncovertebral spurring and facet arthropathy with mild right and hswq-ac-xfrpakzz left neural foraminal narrowing. C7-T1: Anterolisthesis of C7 on T1 with unroofing of the disc. No significant spinal canal or neural foraminal narrowing. UPPER THORACIC: Incompletely imaged. No high-grade spinal canal stenosis. IMPRESSION: Multilevel wbdt-ju-myftjemi cervical spondylotic changes as described. Spinal canal [...] of muscles: 1 or 2 Approach: Posterior 4 mL lidocaine 10 mg/mL (1 %); [...] of muscles: 1 or 2 Approach: Posterior 4 mL lidocaine 10 mg/mL (1 %); [...] the right lower lumbar paraspinal muscle region greatestbilaterally at L4-L5, L5-S1 Straight leg raise produces negative radicular leg [...] Appearance: Well-nourished, in no acute distress. BMI 47.09 Heart: No chest Lungs: Unlabored breathing Abdomen: [...] a day, Disp: , Rfl: tirzepatide (Mounjaro) 5 mg/0.5 mL pen injector, INJECT 5 MG SUBCUTANEOUSLY EVERY 7 DAYS, Disp: 2 mL, Rfl: 2 venlafaxine XR (EFFEXOR-XR) 75 mg 24 hr capsule, Take 3 capsules (225 mg total) by mouth nightly, Disp: , Rfl: VENTOLIN HFA 90 mcg/actuation inhaler, TAKE 2 PUFFS BY MOUTH EVERY 4 HOURS NEEDED FOR WHEEZING, Disp: , Rfl: 1 vit A,C and I-vbsswz-vquzrtvn (OCUVITE with LUTEIN) 1,000 unit-200 mg-60 unit-2 mg tablet, Take 1 tablet by mouth daily, Disp: , Rfl: zolpidem (AMBIEN) 10 mg tablet, TAKE 1 TABLET BY MOUTH AT BEDTIME NEEDED, Disp: , Rfl: 1 gabapentin (NEURONTIN) 100 mg capsule, TAKE 1 CAPSULE BY MOUTH THREE TIMES A DAY (Patient not taking: Reported on 05/28/2023), Disp: 90 capsule, Rfl: 3 methocarbamoL (ROBAXIN) 750 mg tablet, TAKE 1 TO 2 TABLETS BY MOUTH 3 TIMES A DAY NEEDED (Patient not taking: Reported on 08/27/2023), Disp: , Rfl: Past Medical History: Past [...] Signs: Height 165.1 cm (5' 5), weight 128.4 kg (283 lb), not currently . BMI Readings from Last 1 Encounters: 08/27/23 47.09 kg/m?? Valentina Curtis NP RMODAL CUSTOMER SERVICE documented in this encounter Plan of Treatment Not on file documented as of this encounter Procedures Procedure Name Priority Date/Time Associated Diagnosis Comments RI INJECTION SINGLE/HOSPICE CLINICAL MANAGER TRIGGER POINT 1/2 MUSCLES Routine 08/27/2023 11:00 AM INTERMODAL CUSTOMER SERVICE Myalgia, other site RI INJECTION SINGLE/HOSPICE CLINICAL MANAGER TRIGGER POINT 1/2 MUSCLES Routine 08/27/2023 11:00 AM INTERMODAL CUSTOMER SERVICE Myalgia, other site documented in this encounter Results * RI INJECTION SINGLE/HOSPICE CLINICAL MANAGER TRIGGER POINT 1/2 MUSCLES (08/27/2023 11:00 AM INTERMODAL CUSTOMER SERVICE) Narrative Valentina Curtis NP - 08/27/2023 11:00 AM INTERMODAL CUSTOMER SERVICE Valentina Curtis NP ? 08/27/2023 11:50 AM Trigger Point Injection Performed by: Valentina Curtis [...] muscles: ??1 or 2 ??Approach: ??Posterior ?? 4 mL lidocaine 10 mg/mL (1 %); 80 mg triamcinolone 40 mg/mL ??Patient tolerance: ??Patient tolerated the procedure well with no immediate complications us Valentina Curtis NP IN CLINIC/BEDSIDE ORDERABLE S Final Result * RI INJECTION SINGLE/HOSPICE CLINICAL MANAGER TRIGGER POINT 1/2 MUSCLES (08/27/2023 11:00 AM INTERMODAL CUSTOMER SERVICE) Narrative Valentina Curtis NP - 08/27/2023 11:00 AM INTERMODAL CUSTOMER SERVICE Valentina Curtis NP ? 08/27/2023 11:50 AM Trigger Point Injection Performed by: Valentina Curtis [...] muscles: ??1 or 2 ??Approach: ??Posterior ?? 4 mL lidocaine 10 mg/mL (1 %); 80 mg triamcinolone 40 mg/mL ??Patient tolerance: ??Patient tolerated the procedure well with no immediate complications us Valentina Curtis MANUFACTURING PROJECT ENGINEER IN CLINIC/BEDSIDE ORDERABLE S Final Result documented [...] mL 4 mL, One-Time Injection, Starting on Sun08/27/23 at 1100, For 1 dose, Indications: Administration of Local AnesthesiaIndications:Administrati on of Local Anesthesia Given 08/27/2023 11:00 AM INTERMODAL CUSTOMER SERVICE 4 mL lidocaine (XYLOCAINE) 10 mg/mL (1 %) injection 4 mL 4 mL, One-Time Injection, Starting on Sun08/27/23 at 1100, For 1 dose, Indications: Administration of Local AnesthesiaIndications:Administrati on of Local Anesthesia Given 08/27/2023 11:00 AM INTERMODAL CUSTOMER SERVICE 4 mL triamcinolone (KENALOG) 40 mg/mL injection 80 mg 80 mg, One-Time Injection, Starting on Sun08/27/23 at 1100, For 1 doseIndications:Myalgia, other site Given 08/27/2023 11:00 AM INTERMODAL CUSTOMER SERVICE 80 mg triamcinolone (KENALOG) 40 mg/mL injection 80 mg 80 mg, One-Time Injection, Starting on Sun08/27/23 at 1100, For 1 doseIndications:Myalgia, other site Given 08/27/2023 11:00 AM INTERMODAL CUSTOMER SERVICE 80 mg documented in this encounter Care Teams Rad Tech Relationship Specialty Start Date End Date Keyonna Armstrong PA PCP - General Nurse Practitioner 06/20/18 Gasper Ochoa MD [address] [facility] [place] [facility] [place] [address] Consulting Physician Pain Management 08/31/21 documented as of this encounter
--- OUTSIDE RECORDS SUMMARY | 2024-07-10 23:17 | XMS_ITS | Encounter Summary ---
Author Organization [facility] Address [address] [facility] [address] [place] [id number] Care Team Providers Care Quality Compliance Manager Name Role Phone Keyonna Armstrong Primary Care Provider + Gasper Ochoa MD Unavailable Reason for Referral * Procedure (Routine) - Closed Specialty Diagnoses / Procedures Referred By Contac t Referred To Contact Diagnoses Ischiogluteal bursitis, right Procedures Large Joint (Hip, Knee, Shoulder) Injection: R ischiogluteal bursa Valentina Curtis NP [address] [place], [place] [id number] Phone: tel: fax: [facility] Referral ID Status Reason Start Date Expiration Date Visits Re quested Visits Authorized [id number] Closed 08/22/2022 09/21/2023 1 1 Y COATINGS INSTALLER * Procedure (Routine) - Closed Specialty Diagnoses / Procedures Referred By Contac t Referred To Contact Diagnoses Myalgia, other site Procedures Trigger Point Injection [facility] [address] [place] [phone] Phone: tel: fax: [facility] Referral ID Status Reason Start Date Expiration Date Visits Re quested Visits Authorized [id number] Closed 08/22/2022 09/21/2023 1 1 Y COATINGS INSTALLER * Procedure (Routine) - Closed Specialty Diagnoses / Procedures Referred By Lee saunders Referred To Contact Diagnoses Myalgia, other site Procedures Trigger Point Injection Valentina Curtis NP [address] [place] [address] [address] [place] [address] Phone: tel: fax: [facility] Referral ID Status Reason Start Date Expiration Date Visits Re quested Visits Authorized [id number] Closed 08/22/2022 09/21/2023 1 1 Y COATINGS INSTALLER Reason for Visit * Reason Comments Pain Injections Pain Injections Encounter Details Date Type Department Care Team (Latest Contact Info) Description 08/22/2022 9:00 AM EPOXY COATINGS INSTALLER Office Visit [facility] [address] [place] [phone] Valentina Curtis NP [address] [place] [address] [address] Myalgia, other site (Primary Dx); Ischiogluteal bursitis, right; Chronic neck pain; Spondylolisthesis of cervical region- grade 1 anterolisthesis of C3 on C4 and grade 1 retrolisthesis of C5 on C6. Grade 1 anterolisthesis of C7 on T1. 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 Not on file Not on file Not on leeann e documented as of this encounter Last Filed Vital Signs Vital Sign Reading Time Taken Comments Blood Pressure - - Pulse - - Temperature - - Respiratory Rate - - Oxygen Saturation - - Inhaled Oxygen Concentration - - Weight 127 kg (280 lb) 08/22/2022 9:19 AM EPOXY COATINGS INSTALLER Height 165.1 cm (5' 5) 08/22/2022 9:19 AM EPOXY COATINGS INSTALLER Body Mass Index 46.59 08/22/2022 9:19 AM EPOXY COATINGS INSTALLER documented in this encounter Progress Notes * Valentina Curtis, M48 M60 ARMOR CREWMAN - 08/22/2022 9:00 AM CSTAssociated Order(s): Trigger Point Injection; Trigger Point Injection; Large Joint (Hip, Knee, Shoulder) Injection: R ischiogluteal bursa Post-Procedure Diagnose(s): Myalgia, other site; Ischiogluteal bursitis, right Reason for Appointment Chronic neck pain, chronic lumbar pain History of Present Illness: Veronica Evangelista is a 52 y.o. female arrived to the orthopedic department ambulatory, walking with no assisted devices. She is here today requesting cortisone trigger point injections for her chronic right-sided posterior neck pain and lumbar pain symptoms. Previous cortisone trigger point injections given May 22, 2022 provided up to 100% reduction of similar type pain lasting nearly 3 months.She currently uses ibuprofen and Robaxin p.r.n.. She denies any recent injuries and denies bowel orbladder dysfunction or saddle paresthesia type symptoms. She is currently under the care of Dr. Kym Wheat for weight management. Previous conservative treatments and evaluations include the following: She went to [facility] April 2021 and had dry needle therapy and physical therapy which she stopped due to increasing pain. She has tried home cervical spine range of motion exercises. April 2021-- she went to Dr. Mars, chiropractor at [facility] with no reduction of pain [...] up and walk. 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 Assessment: Diagnosis Plan 1. Myalgia, other site Trigger Point Injection Trigger Point Injection 2. Ischiogluteal bursitis, right Large Joint (Hip, Knee, Shoulder) Injection: R ischiogluteal bursa 3. Chronic neck pain 4. Spondylolisthesis of cervical region- grade 1 anterolisthesis of C3 on C4 and grade 1 retrolisthesis of C5 on C6. Grade 1 anterolisthesis of C7 on T1. 5. Arthropathy of cervical facet joint 6. Degeneration of intervertebral disc of cervical region 7. Chronic bilateral low back pain with bilateral sciatica 8. Anterolisthesis of lumbar spine-mild L1 on L2, L2 on L3 and L3 on L4 9. DDD (degenerative disc disease), lumbar 10. Lumbar facet arthropathy Plan: For her lumbar pain symptoms---today I gave Veronica cortisone trigger point injections using 2 mL 1% lidocaine without epi and 40 mg triamcinolone each to the bilateral lower lumbar paraspinal muscle region near L4-L5 and a cortisone injection to the right ischiogluteal region where there were focal areas of hyperirritability with palpation. Recommend continued daily exercises which were provided to her from previous physical therapy. For her chronic neck pain symptoms--today I gave Veronica a cortisone injection using 1 mL 1% lidocaine without epi and 40 mg triamcinolone to the right posterior cervical paraspinal muscle region near C5-C6 where there was a focal area of hyperirritability with palpation. Recommend continued at leastdaily gentle range of motion exercises of the cervical spine She plans to continue care with Dr. Mark Wheat for weight loss. She has a follow-up appointment scheduled with me on November 20, 2022 for her chronic neck pain, chroniclumbar pain symptoms. Imaging Reviewed: Lumbar spine x-ray [...] There is preservation of vertebral body height. Vohq-uv-oixecfhb multilevel degenerativeendplate change. Dsxj-wc-pofqrhyy facet arthropathy mid through lower lumbar spine. [...] can be obtained as clinically indicated. Multilevel cekq-uh-oaxrizzl endplate degenerative changes with marginal spur formation. [...] indents the ventral cord. Thickened ligamentum flavum. Mycb-ln-xnzuafeg spinal canal stenosis. Uncovertebral spurring and facet arthropathy with mild right and dlzd-cj-bdefufax left neural foraminal narrowing. C7-T1: Anterolisthesis of C7 on T1 with unroofing of the disc. No significant spinal canal or neural foraminal narrowing. UPPER THORACIC: Incompletely imaged. No high-grade spinal canal stenosis. IMPRESSION: Multilevel ormh-vw-xtyvsoes cervical spondylotic changes as described. Spinal canal [...] Site/side marked: Yes Indications: Myalgia and pain Procedure Details: Location: R cervical paraspinal Local anesthetic: Ethyl chloride spray [...] Myalgia Procedure Details: Location: L lumbar paraspinal and R lumbar [...] bilateral lateral bending. 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 [...] 2 (two) times a day, Disp:, Rfl: fluticasone propionate (FLONASE) 50 mcg/actuation nasal spray, SPRAY 1 SPRAY INTO EACH NOSTRIL EVERY DAY, Disp: , Rfl: hydroCHLOROthiazide (HYDRODIURIL) 25 mg tablet, Take 25 mg by mouth every morning. , Disp: , Rfl: 0 lisinopril (PRINIVIL,ZESTRIL) 40 mg tablet, Take 40 [...] mouth nightly. , Disp: , Rfl: 1 Mimvey 1-0.5 mg per tablet, Take 1 tablet by mouth daily, Disp: , Rfl: multivitamin tablet, Take 1 tablet by mouth every morning., Disp: , Rfl: NOT IN DATABASE, PRESCRIPTION,, Spark Zinc and Selenium supplement for thyroid, Disp: , Rfl: pantoprazole DR (PROTONIX) 20 mg EC tablet, 20 mg , Disp: , Rfl: phentermine 30 mg capsule, Take 1 capsule (30 mg total) by mouth test department helper before breakfast, Disp: 90 capsule, Rfl: 0 venlafaxine XR (EFFEXOR-XR) 75 mg 24 hr capsule, Take 225 mg by mouth nightly., Disp: , Rfl: VENTOLIN HFA 90 mcg/actuation inhaler, TAKE 2 PUFFS BY MOUTH EVERY 4 HOURS NEEDED FOR WHEEZING, Disp: , Rfl: 1 vit A,C and B-bhbjqg-ndbfutmt (OCUVITE with LUTEIN) 1,000 unit-200 mg-60 unit-2 [...] taking: Reported on 08/17/2022), Disp: , Rfl: diclofenac sodium (VOLTAREN) 1 % gel, Apply 4 g topically 4 (four) times a day (Patient not taking:Reported on 08/23/2021), Disp: , Rfl: gabapentin (NEURONTIN) 100 mg capsule, TAKE 1 CAPSULE BY MOUTH THREE TIMES A DAY (Patient not taking: Reported on 08/17/2022), Disp: 90 capsule, Rfl: 0 glucosamine/chondr hernadez A sod (OSTEO BI-FLEX ORAL), Take 1 tablet by mouth every morning (Patient nottaking: Reported on 08/17/2022), Disp: , Rfl: ibuprofen (ADVIL,MOTRIN) 800 mg tablet, , Disp: , Rfl: Lactobacillus acidophilus (Probiotic) 10 billion cell capsule, Rx: Probiotic - Capsule (Patient nottaking: No sig reported), Disp: , Rfl: Larissia 0.1-20 mg-mcg per tablet, , Disp: , Rfl: ondansetron (ZOFRAN) 4 mg tablet, Take 1 tablet (4 mg total) by mouth every 6 (six) hours as neededfor nausea or vomiting. (Patient not taking: Reported on 10/07/2021), Disp: 15 tablet, Rfl: 1 oxyCODONE (ROXICODONE) 5 mg immediate release tablet, Take 1 tablet (5 mg total) by mouth every 4 (four) hours as needed for pain. (Patient not taking: Reported on 10/07/2021), Disp: 20 tablet, Rfl: 0 sennosides (Laxative Maximum Strength) 25 mg tablet, 25 mg daily (Patient not taking: Reported on 08/23/2021), Disp: , Rfl: simethicone (MYLICON) 80 mg chewable tablet, 80 mg 4 (four) times a day (Patient not taking: Reported on 09/14/2021), Disp: , Rfl: Past Medical History: Past [...] . BMI Readings from Last 1 Encounters: 08/22/22 46.59 kg/m?? Valentina Curtis NP Y COATINGS INSTALLER documented in this encounter Plan of Treatment Not on file documented as of this encounter Procedures Procedure Name Priority Date/Time Associated Diagnosis Comments MO ARTHROCENTESIS ASPIR&/INJ MAJOR JT/BURSA W/O US Routine 08/22/2022 9:00 AM EPOXY COATINGS INSTALLER Ischiogluteal bursitis, right MO INJECTION SINGLE/TECHNICAL OPERATIONS MANAGER TRIGGER POINT 1/2 MUSCLES Routine 08/22/2022 9:00 AM EPOXY COATINGS INSTALLER Myalgia, other site MO INJECTION SINGLE/TECHNICAL OPERATIONS MANAGER TRIGGER POINT 1/2 MUSCLES Routine 08/22/2022 9:00 AM EPOXY COATINGS INSTALLER Myalgia, other site documented in this encounter Results * MO ARTHROCENTESIS ASPIR&/INJ MAJOR JT/BURSA W/O US (08/22/2022 9:00 AM EPOXY COATINGS INSTALLER) Narrative Valentina Curtis NP - 08/22/2022 9:00 AM EPOXY COATINGS INSTALLER Valentina Curtis NP ? 08/22/2022 ??6:26 PM Large Joint (Hip, Knee, Shoulder) Injection: R ischiogluteal bursa Performed by: Valentina Curtis NP Authorized by: Valentina Curtis NP Large Joint Injection/Aspiration: ??Consent Given by: ??Patient [...] ORDERABLE S Final Result * MO INJECTION SINGLE/TECHNICAL OPERATIONS MANAGER TRIGGER POINT 1/2 MUSCLES (08/22/2022 9:00 AM EPOXY COATINGS INSTALLER) Narrative Valentina Curtis NP - 08/22/2022 9:00 AM EPOXY COATINGS INSTALLER Valentina Curtis NP ? 08/22/2022 ??6:26 PM Trigger Point Injection Performed by: Valentina [...] ??Myalgia Procedure Details: ??Location: ??L lumbar paraspinal and R lumbar paraspinal ??Local anesthetic: ??Ethyl chloride spray ??Ultrasound guidance: No ?Needle size: ??22 G ??Number of muscles: ??1 or 2 ??Approach: ??Posterior ?? 4 mL lidocaine 10 mg/mL (1 %); 80 mg triamcinolone 40 mg/mL ??Patient tolerance: ??Patient tolerated the procedure well with no immediate complications us Valentina Curtis M48 M60 ARMOR CREWMAN IN CLINIC/BEDSIDE ORDERABLE S Final Result * MO INJECTION SINGLE/TECHNICAL OPERATIONS MANAGER TRIGGER POINT 1/2 MUSCLES (08/22/2022 9:00 AM EPOXY COATINGS INSTALLER) Narrative Valentina Curtis NP - 08/22/2022 9:00 AM EPOXY COATINGS INSTALLER Valentina Curtis NP ? 08/22/2022 ??6:26 PM Trigger Point Injection Performed by: Valentina [...] no treatment ??Site/side marked: Yes ?Indications: ??Myalgia and pain Procedure Details: ??Location: ??R cervical paraspinal ??Local anesthetic: ??Ethyl chloride spray ??Ultrasound guidance: No ?Needle size: ??25 G ??Number of muscles: ??1 or 2 ??Approach: ??Posterior ?? 2 mL lidocaine 10 mg/mL (1 %); 80 mg triamcinolone 40 mg/mL ??Patient tolerance: ??Patient tolerated the procedure well with no immediate complications ?? Valentina Curtis NP IN CLINIC/BEDSIDE ORDERABLE S Final Result documented in this encounter Visit Diagnoses Diagnosis Myalgia, other site- Primary Ischiogluteal bursitis, right Chronic neck pain Cervicalgia Spondylolisthesis of cervical region- grade 1 anterolisthesis of C3 on C4 and grade 1 retrolisthesis of C5 on C6. Grade 1 anterolisthesis of C7 on T1. Arthropathy of cervical facet joint Degeneration of intervertebral disc of cervical region Chronic bilateral low back pain with bilateral sciatica Anterolisthesis of lumbar spine-mild L1 on L2, L2 on L3 and L3 on L4 DDD (degenerative disc disease), lumbar Degeneration of lumbar or lumbosacral intervertebral disc Lumbar facet arthropathy Spondylosis of unspecified site without mention of myelopathy documented in this encounter Administered Medications Inactive Administered Medications - up to 3 most recent administrations Medication Order MAR Action Action Date Dose Rate Site lidocaine (XYLOCAINE) 10 mg/mL (1 %) injection 2 mL 2 mL, One-Time Injection, Starting on Sun08/22/22 at 1019, For 1 dose, Indications: Administration of Local AnesthesiaIndications:Administr ation of Local Anesthesia Given 08/22/2022 10:19 AM EPOXY COATINGS INSTALLER 2 mL lidocaine (XYLOCAINE) 10 mg/mL (1 %) injection 2 mL 2 mL, One-Time Injection, Starting on Sun08/22/22 at 1022, For 1 dose, Indications: Administration of Local AnesthesiaIndications:Administr ation of Local Anesthesia Given 08/22/2022 10:22 AM EPOXY COATINGS INSTALLER 2 mL Right Hip lidocaine (XYLOCAINE) 10 mg/mL (1 %) injection 4 mL 4 mL, One-Time Injection, Starting on Sun08/22/22 at 1020, For 1 dose, Indications: Administration of Local AnesthesiaIndications:Administr ation of Local Anesthesia Given 08/22/2022 10:20 AM EPOXY COATINGS INSTALLER 4 mL triamcinolone (KENALOG) 40 mg/mL injection 40 mg 40 mg, intra-articular, One-Time Injection, Starting on Sun08/22/22 at 1022, For 1 doseIndications:Ischiogluteal bursitis, right Given 08/22/2022 10:22 AM EPOXY COATINGS INSTALLER 40 mg Right Hip triamcinolone (KENALOG) 40 mg/mL injection 80 mg 80 mg, One-Time Injection, Starting on Sun08/22/22 at 1019, For 1 doseIndications:Myalgia, other site Given 08/22/2022 10:19 AM EPOXY COATINGS INSTALLER 80 mg triamcinolone (KENALOG) 40 mg/mL injection 80 mg 80 mg, One-Time Injection, Starting on Sun08/22/22 at 1020, For 1 doseIndications:Myalgia, other site Given 08/22/2022 10:20 AM EPOXY COATINGS INSTALLER 80 mg documented in this encounter Care Teams Quality Compliance Manager Relationship Specialty Start Date End Date Keyonna Armstrong PA PCP - General Nurse Practitioner 06/20/18 Gasper Ochoa MD [address] [place] [address] [address] [facility] [place] [address] Consulting Physician Pain Management 08/31/21 documented as of this encounter
--- OUTSIDE RECORDS SUMMARY | 2024-07-10 23:17 | XMS_ITS | Encounter Summary ---
Author Organization [facility] Address [address] [place] [address] Care Team Providers Care Artist'S Representative Name Role Phone Keyonna Armstrong Primary Care Provider + Gasper Ochoa MD Unavailable Reason for Referral * Diagnostic Imaging (Routine) - Closed Specialty Diagnoses / Procedures Referred By Contac t Referred To Contact Diagnoses Neck pain Procedures FL Fluoroscopy < 1 Hour Gasper Ochoa MD [address] [facility] [place] [address] Phone: tel: fax: [address] [phone] Referral ID Status Reason Start Date Expiration Date Visits Re quested Visits Authorized [id number] Closed 09/14/2021 10/14/2022 1 1 TER AUTOMATIC Reason for Visit * Diagnostic Imaging (Routine) - Closed Specialty Diagnoses / Procedures Referred By Contac t Referred To Contact Diagnoses Neck pain Procedures FL Fluoroscopy < 1 Hour Gasper Ochoa MD [address] [place] [address] Phone: tel: fax: [address] [phone] Referral ID Status Reason Start Date Expiration Date Visits Re quested Visits Authorized [id number] Closed 09/14/2021 10/14/2022 1 1 Encounter Details Date Type Department Care Team (Latest Contact Info) Description 09/14/2021 8:00 AM MOUNTER AUTOMATIC - 09/14/2021 8:37 AM MOUNTER AUTOMATIC Hospital Encounter [facility] Pain Mgmt Imaging [address] [place] [address] Neck pain Discharge Disposition: Discharge to home [...] on file Legal Sex Female 6:41 PM MOUNTER AUTOMATIC Gender Identity Not on file Sexual Orientation Not on file 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 ??Please refer to the physician's procedure / OR operative note. Gasper Ochoa MD IMG FLUOROSCOPY PROCEDURES Final Result [facility] documented in this encounter Visit Diagnoses Diagnosis Neck pain Cervicalgia documented in this encounter Care Teams Artist'S Representative Relationship Specialty Start Date End Date Keyonna Armstrong PA PCP - General Nurse Practitioner 06/20/18 Gasper Ochoa MD [address] [facility] [facility] [place] [address] Consulting Physician Pain Management 08/31/21 documented as of this encounter
--- OUTSIDE RECORDS SUMMARY | 2024-07-10 23:17 | XMS_ITS | Clinical Summary ---
Author Organization [facility] Medical [facility] [address] [place] [id number] Care Team Providers Care Rag Sorter Name Role Phone Keyonna Armstrong Primary Care Provider + Gasper Ochoa MD Unavailable Allergies Active Allergy Reactions Criticality Noted Date [...] complication, without long-term current use of insulin ([facility] ([facility]) Inject 12.5 mg under the skin every 7 days 6 mL 3 4 07/01/20 25 Active estradioL ([facility]EL[facility]) 0.05 mg/[address] 1 patch on the skin 2 (two) times a week 4 07/01/20 24 Discontinu ed(Duplica te order) tirzepatide (Mounjaro) 12.5 mg/0.5 mL pen injectorIndicat ions:Controlled type 2 diabetes mellitus without complication, without long-term current use of insulin ([facility] ([facility]) INJECT 12.5 MG UNDER THE SKIN EVERY [...] complication, without long-term current use of insulin ([facility]) 08/28/2023 Overview (08/28/2023): chronic. Uncontrolled. Increase Mounjaro 7.5mg weekly Abnormal platelets ([facility]) 03/04/2020 Leukocytosis (leucocytosis) 08/26/2019 Reactive thrombocytosis 08/26/2019 [...] (06/26/2018): Added automatically from request for surgery [id number] Calculus of gallbladder with acute cholecystitis without obstruction 06/20/20182018 Encounters Date Type Department Care Team Description 07/01/2024 11:00 AM INTERNATIONAL TRADE SPECIALIST Office Visit [facility] Family Medicine at [address] [place] [address] Mark Wheat MD Controlled type 2 diabetes mellitus without complication, without long-term current use of insulin (CMS/HCC) (HCC) (Primary Dx); Class 2 obesity due to excess calories without serious comorbidity with body mass index (BMI) of 39.0 to 39.9 in adult 05/21/2024 8:00 AM CDT Office Visit [facility] Orthopedics and Sports Medicine [address] [place] [phone] Valentina Curtis NP Myalgia, other site [...] disease), cervical multilevel from Last 3 Months Immunizations Name Administration Dates Next Due DTaP, Unspecified 04/25/2016 Influenza, Quadrivalent, Jocelyn l Culture-based MDCK, Preservative Free, Antibiotic Free, Intramuscular 05/04/2021 Influenza, Quadrivalent, Spl it, Preservative Free, Intramuscular 05/19/2020,04/22/2019,05/16/2018,04/25 Influenza, Unspecified 06/24/2023,2021,05/16/2018,04/25,06/19/2012 Pneumococcal Conjugate PCV 13 04/22/2019 Pneumococcal Conjugate, Unspecified 05/04/2021 Pneumococcal Polysaccharide PPV23 05/04/2021 Tdap 04/25/2016 ZOSTER Recombinant 06/24/2023 Surgical History Surgery Date Site/Laterality Comments CARLOS MANUEL-EN-Y PROCEDURE 09/21/2003 - 10/21/[address] 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 Grade 1 anterolisthesis of C7 on T1. 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 Not on file Not on file Not on leeann e Obstetrics History Last Filed Vital Signs Vital Sign Reading Time Taken Comments Blood Pressure 102/72 07/01/2024 11:25 AM INTERNATIONAL TRADE SPECIALIST Pulse 112 07/01/2024 11:25 AM INTERNATIONAL TRADE SPECIALIST Temperature 36 ??C (96.8 ??F) 07/01/2024 11: 25 AM INTERNATIONAL TRADE SPECIALIST Respiratory Rate 18 03/21/2024 10:5 3 AM CDT Oxygen Saturation 96% 07/01/2024 11: 25 AM INTERNATIONAL TRADE SPECIALIST Inhaled Oxygen Concentration - - Weight 107.8 kg (237 lb 9.6 oz) 024 11:25 AM INTERNATIONAL TRADE SPECIALIST Height 165.1 cm (5' 5) 07/01/2024 11:2 5 AM INTERNATIONAL TRADE SPECIALIST Body Mass Index 39.54 07/01/2024 11:25 AM INTERNATIONAL TRADE SPECIALIST Plan of Treatment Health Maintenance Due Date Last Done Comments Albumin Creatinine Ratio, Urine 1968 Breast Cancer Screening-Mammogram 1968 Cervical Cancer Screening 1968 Colon Cancer Screening-Colonoscopy 1968 Hepatitis C Screening 1968 Dilated Eye Exam 1968 Foot Exam 1968 Hepatitis B Screening 1986 Regular Well Visit/Exam 18-64 1986 Hemoglobin A1C 01/09/2019 07/11/2018 eGFR 07/11/2019 07/11/2018 Zoster Vaccine (2 of 2) 08/19/2023 06/24/2023 Covid-19 Vaccine (3 - 2023-2 5 season) 2024 11/20/2020, 10/19/2020 Influenza Vaccine (#1) 2024 , 05/30/2022, 05/04/2021, Additional history exists Depression Screening 05/29/2024 05/29/2023, 05/29/20 23 Lipid Panel 11/22/2024 11/23/2023, 09/20, 07/11/2018, Additional history exists DTaP/Tdap/Td Vaccine (3 - Td or Tdap) 04/25/2026 04/25/2016, 04/25/2016 Pneumococcal vaccine <65 (3 of 3 - PPSV23 or PCV20) 2033 05/04/2021, 05/04/2021, 04/22/2019 Procedures Procedure Name Priority Date/Time Associated Diagnosis Comments FL INJECTION SINGLE/CHAIRMAN & CEO TRIGGER POINT 1/2 MUSCLES Routine 05/21/2024 8:00 AM CDT Myalgia, other site FL INJECTION SINGLE/CHAIRMAN & CEO TRIGGER POINT 1/2 MUSCLES Routine 05/21/2024 8:00 AM CDT Myalgia, other site COMPREHENSIVE METABOLIC PANEL Routine 07/11/2018 8:19 AM INTERNATIONAL TRADE SPECIALIST Intestinal malabsorption, unspecified type Bariatric surgery status HEMOGLOBIN A1C Routine 07/11/2018 8:19 AM INTERNATIONAL TRADE SPECIALIST Intestinal malabsorption, unspecified type Bariatric surgery status LIPID PANEL Routine 07/11/2018 8:19 AM INTERNATIONAL TRADE SPECIALIST Intestinal malabsorption, unspecified type Bariatric surgery status from Last 3 Months or Most Recently Relevant to Health Maintenance Results * FL INJECTION SINGLE/CHAIRMAN & CEO TRIGGER POINT 1/2 MUSCLES (05/21/2024 8:00 AM [...] IN CLINIC/BEDSIDE ORDERABLE S Final Result * FL INJECTION SINGLE/CHAIRMAN & CEO TRIGGER POINT 1/2 MUSCLES (05/21/2024 8:00 AM [...] with no immediate complications us Valentina Curtis REPAIR SPECIALIST IN CLINIC/BEDSIDE ORDERABLE S Final Result * Hemoglobin A1c (07/11/2018 8:19 AM INTERNATIONAL TRADE SPECIALIST) Hgb A1C 5.1 <5.7 % of total Hgb [facility] [place] Comment: For the purpose of screening for the presence of diabetes: <5.7% ? Consistent with the absence of diabetes 5.7-6.4% ?Consistent with increased risk for diabetes ?(prediabetes) > or =6.5% ??Consistent with diabetes This assay result is consistent with a decreased risk of diabetes. Currently, no consensus exists regarding use of hemoglobin A1c for diagnosis of diabetes in children. According to [place] Diabetes Association (ADA) guidelines, hemoglobin A1c <7.0% represents optimal control in non- diabetic patients. Different metrics may apply to specific patient populations. Standards of Medical Care in Diabetes(ADA). ?? Blood specimen (specimen) 07/11/2018 8:19 AM INTERNATIONAL TRADE SPECIALIST 07/11/2018 8:20 AM INTERNATIONAL TRADE SPECIALIST Narrative [facility] - 07/15/2018 8:57 AM INTERNATIONAL TRADE SPECIALIST FASTING:YES FASTING: YES Resulting Agency Comment Performing Organization Information: ?Site ID: [place] ?Name: [facility] ?Address: [address] [id number] ?Director: Servando Cervantes D.O., MPH us Elli Hernandez MD PhD LAB BLOOD ORDERABLES Kiley garrett Result [facility] [place] * (ABNORMAL) Lipid panel (07/11/2018 8:19 AM INTERNATIONAL TRADE SPECIALIST) Cholesterol 139 <200 mg/dL [facility] [place] HDL 38(L) >50 mg/dL [facility] [place] Triglycerides 204(H) <150 mg/dL [facility] [place] LDL 71 mg/dL (calc) [facility] [place] Comment: Reference range: <100 Desirable range <100 mg/dL for primary prevention; ?? <70 mg/dL for patients with CHD or diabetic patients with > or = 2 CHD risk factors. LDL-C is now calculated using the Deep-Laya calculation, which is a validated novel method providing better accuracy than the Friedewald equation in the estimation of LDL-C. Deep SS et al. JAMAR. 2013;310(19): 7118-1303 (http://education.Listen Edition/faq/BDZ614) Chol/HDL ratio 3.7 <5.0 (calc) [facility] [place] Non-HDL, (LDL+VLDL) 101 <130 mg/dL (calc) [facility] [place] Comment: For patients with diabetes plus 1 major ASCVD risk factor, treating to a non-HDL-C goal of <100 mg/dL (LDL-C of <70 mg/dL) is considered a therapeutic option. Blood specimen (specimen) 07/11/2018 8:19 AM INTERNATIONAL TRADE SPECIALIST 07/11/2018 8:20 AM INTERNATIONAL TRADE SPECIALIST Narrative [facility] - 07/15/2018 8:57 AM INTERNATIONAL TRADE SPECIALIST FASTING:YES FASTING: YES Resulting Agency Comment Performing Organization Information: ?Site ID: [place] ?Name: [facility] ?Address: [address] [id number] ?Director: Servando Cervantes D.O., MPH Elli Hernandez MD PhD LAB BLOOD ORDERABLES Kiley l Result [facility] [place] * Comprehensive metabolic panel (07/11/2018 8:19 AM INTERNATIONAL TRADE SPECIALIST) Glucose 92 65 - 99 mg/dL [facility] [place] Comment: ? Fasting reference interval BUN 21 7 - 25 mg/dL [facility] [place] Creatinine 0.79 0.50 - 1.10 mg/dL [facility] [place] eGFR NON-AFR. [facility] LEONEAN 88 > OR = 60 mL/min/1. 73m2 [...] Bilirubin, total 0.4 0.2 - 1.2 mg/dL [facility] [place] Alk phos 73 33 - 115 U/L [facility] [place] AST 17 10 - 35 U/L [facility] [place] ALT (SGPT) 16 6 - 29 U/L [facility] [place] Blood specimen (specimen) 07/11/2018 8:19 AM INTERNATIONAL TRADE SPECIALIST 07/11/2018 8:20 AM INTERNATIONAL TRADE SPECIALIST Narrative [facility] - 07/15/2018 8:57 AM INTERNATIONAL TRADE SPECIALIST FASTING:YES FASTING: YES Resulting Agency Comment Performing Organization Information: ?Site ID: [place] ?Name: [facility] ?Address: [address] [place] [address] [address] [address] ?Director: Servando Cervantes D.O., MPH Elli Hernandez MD PhD LAB BLOOD ORDERABLES Kiley tami Result [facility] [place] from Last 3 Months or Most Recently Relevant to Health Maintenance Insurance [place] MEDICARE O [employer] MEDICARE HMO MEDICARE [facility] Care Teams Rag Sorter Relationship Specialty Start Date End Date Keynona Armstrong PA PCP - General Nurse Practitioner 06/20/18 Gasper Ochoa MD [address] [place] [address] Consulting Physician Pain Management 08/31/21
--- OUTSIDE RECORDS SUMMARY | 2024-07-10 23:17 | XMS_ITS | Encounter Summary ---
Author Organization [facility] Address [address] [facility] [address] [place] [id number] Care Team Providers Care Call Center Operations Manager Name Role Phone Keyonna Armstrong Primary Care Provider + Gasper Ochoa MD Unavailable Encounter Details Date Type Department Care Team (Late st Contact Info) Description 01/19/2022 Telephone [facility] Orthopedics and Sports Medicine [facility] [address] [place] [address] Nelsy Bolden MA Social History Tobacco Use [...] on file Legal Sex Female 6:41 PM GAS CONTROLLER Gender Identity Not on file Sexual Orientation Not on file 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 * Telephone Encounter - Nelsy Bolden MA - 01/19/2022 4:20 PM CDT Left message to patient to reschedule 01/25/22 apt to Valentina per [facility] documented in this encounter Plan of Treatment Not on file documented as of this encounter Visit Diagnoses Not on filedocumented in this encounter Care Teams Call Center Operations Manager Relationship Specialty Start Date End Date Keyonna Armstrong PA PCP - General Nurse Practitioner 06/20/18 Gasper Ochoa MD [address] [place] [address] Consulting Physician Pain Management 08/31/21 documented as of this encounter
--- OUTSIDE RECORDS SUMMARY | 2024-07-10 23:17 | XMS_ITS | Encounter Summary ---
Author Organization [facility] Address [address] [facility] [address] [place] [address] Care Team Providers Care Correctional Program Specialist Name Role Phone Keyonna Armstrong Primary Care Provider + Gasper Ochoa MD Unavailable Reason for Visit * Reason Onset Date Comments return call 11/03/2021 Encounter Details Date Type Department Care Team (Late st Contact Info) Description 11/03/2021 Telephone [facility] Orthopedics and Sports Medicine [address] [phone] [place] [address] [place] [phone] return call Social History Tobacco Use Types Packs/Day Years [...] on file Legal Sex Female 6:41 PM 3D ARTIST Gender Identity Not on file Sexual Orientation Not on file 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 Patient states she does not need a refill at this time the tizanidine and will contact the office when she is ready for a refill. * Telephone Encounter - Dodie Garcia - 11/03/2021 9:30 AM CDT Pt said she is Returning call from Valentina .... documented in this encounter Plan of Treatment Not on file documented as of this encounter Visit Diagnoses Not on filedocumented in this encounter Care Teams Correctional Program Specialist Relationship Specialty Start Date End Date Keyonna Armstrong PA PCP - General Nurse Practitioner 06/20/18 Gasper Ochoa MD [address] [facility] [place] [address] Consulting Physician Pain Management 08/31/21 documented as of this encounter
--- OUTSIDE RECORDS SUMMARY | 2024-07-10 23:17 | XMS_ITS | Encounter Summary ---
Author Organization [facility] Healthcare Address [address] [place] [address] Care Team Providers Care Hazardous Materials Waste Technician Name Role Phone Keyonna Armstrong Primary Care Provider + Gasper Ochoa MD Unavailable Reason for Visit * Reason Comments 3 month follow up Weight management Encounter Details Date Type Department Care Team (Late st Contact Info) Description 08/28/2023 11:45 AM FLOOR ASSEMBLER Office Visit [facility] Family Medicine at [address] [phone] Mark Wheat MD [address] [place] [id number] Controlled type 2 diabetes mellitus without complication, without long-term current use of insulin ([facility]) ([facility]) (Primary Dx); Abnormal weight gain; Class 3 severe obesity due to excess calories without serious comorbidity with body mass index (BMI) of 45.0 to 49.9 in adult ([facility]) Social History Tobacco Use Types Packs/Day [...] on file Legal Sex Female 6:41 PM FLOOR ASSEMBLER Gender Identity Not on file Sexual Orientation Not on file 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 Not on file Not on leeann e documented as of this encounter Last Filed Vital Signs Vital Sign Reading Time Taken Comments Blood Pressure 116/68 08/28/2023 12:00 PM FLOOR ASSEMBLER Pulse 133 08/28/2023 12:00 PM FLOOR ASSEMBLER Temperature 36.3 ??C (97.3 ??F) 08/28/2023 12:[address] Respiratory Rate 18 08/28/2023 12:00 PM FLOOR ASSEMBLER Oxygen Saturation 96% 08/28/2023 12:00 PM FLOOR ASSEMBLER Inhaled Oxygen Concentration - - Weight 124 kg (273 lb 4.8 oz) 08/28/2023 12:00 P M FLOOR ASSEMBLER Height 165.1 cm (5' 5) 08/28/2023 12:00 PM FLOOR ASSEMBLER Body Mass Index 45.48 08/28/2023 12:00 PM FLOOR ASSEMBLER documented in this encounter Ordered Prescriptions Prescription Sig Dispense Quantity Refills Last Filled Start Date End Date tirzepatide (Mounjaro) 7.5 mg/0.5 mL pen injectorIndication s:Controlled type 2 diabetes mellitus without complication, without long-term current use of insulin ([facility]) ([facility]),Abnormal weight gain,Class 3 severe obesity due to excess calories without serious comorbidity with body mass index (BMI) of 45.0 to 49.9 in adult ([facility]) Inject 7.5 mg under the skin every 7 days 2 mL 2 08/28/2023 10/25/2023 documented in this encounter Progress Notes * Mark Wheat MD - 08/28/2023 11:45 AM CST Images from the original note were not included. Visit date: 08/28/2023 Patient ID: Veronica Evangelista is a 53 y.o. female. Chief Complaint. Chief Complaint Patient presents with 3 month follow up Weight management HPI. Patient is a 53 y.o. female HPI Lifestyle Medicine For Weight Management: Previous Dietary Approaches: Not on any specific Diet ZENON: yes, and is not using CPAP Mental Health: Stable Diabetes: No Previous History of Weight Loss Surgery: Gastric Bypass First Visit Date: 07/12/22 First Visit Weight: 298lb 05/29/23: 283lb 08/28/23: 273lb Dates: Weight (lb) Wt Readings from Last 3 Encounters: 08/28/23 124 kg (273 lb 4.8 oz) 08/27/23 128.4 kg (283 lb) 05/29/23 128.4 kg (283 lb 1.6 oz) Total Weight Loss: 25lb Treatment: Medication: Phentermine couldn't tolerate Meal Replacement/Delivery: No Specific Diet: Not on any specific Diet Food Diary: No Activity: is walking and Daily Steps [place] 5000 to [id number] Past Medical History: Diagnosis Date Anxiety Arthropathy [...] Current Medications: Outpatient Encounter Medications as of 08/28/2023 Medication Sig Dispense Refill buPROPion SR (WELLBUTRIN SR) 150 mg 12 hr tablet Take 1 tablet (150 mg total) by mouth 2 (two) times a day cranberry extract (Cranberry Juice Powder) 425 mg capsule Take by mouth diclofenac sodium (VOLTAREN) 1 % gel Apply 4 g topically 4 (four) times a day fluticasone propionate (FLONASE) 50 mcg/actuation nasal spray SPRAY 1 SPRAY INTO EACH NOSTRIL EVERYDAY hydroCHLOROthiazide (HYDRODIURIL) 25 mg tablet Take 1 tablet (25 mg total) by mouth every morning 0 ibuprofen (ADVIL,MOTRIN) 800 mg tablet Lactobacillus acidophilus (Probiotic) 10 billion cell capsule Rx: Probiotic - Capsule lisinopril (PRINIVIL,ZESTRIL) 40 mg tablet Take 1 tablet (40 mg total) by mouth every morning 0 LORazepam (ATIVAN) 1 mg tablet metFORMIN (GLUCOPHAGE) 500 mg tablet TAKE 1 TABLET BY MOUTH EVERY MORNING AND TAKE 2 TABLETS AT BEDTIME 1 metoprolol XL (TOPROL-XL) 100 mg 24 hr tablet Take 1 tablet (100 mg total) by mouth nightly 1 mirtazapine (REMERON) 15 mg tablet Take 1 tablet (15 mg total) by mouth nightly multivitamin tablet Take 1 tablet by mouth [...] mg total) 4 (four) times a day tirzepatide (Mounjaro) 5 mg/0.5 mL pen injector INJECT 5 MG SUBCUTANEOUSLY EVERY 7 DAYS 2 mL 2 venlafaxine XR (EFFEXOR-XR) 75 mg 24 hr capsule Take 3 capsules (225 mg total) by mouth nightly VENTOLIN HFA 90 mcg/actuation inhaler TAKE 2 PUFFS BY MOUTH EVERY 4 HOURS NEEDED FOR WHEEZING 1 vit A,C and V-lyzurh-[id number] (OCUVITE with LUTEIN) 1,000 unit-200 mg-60 unit-2 mg tablet Take 1 tablet by mouth daily zolpidem (AMBIEN) 10 mg tablet TAKE 1 TABLET BY MOUTH AT BEDTIME NEEDED 1 tirzepatide (Mounjaro) 7.5 mg/0.5 mL pen injector Inject 7.5 mg under the skin every 7 days 2 mL 2 [DISCONTINUED] gabapentin (NEURONTIN) 100 mg capsule TAKE 1 CAPSULE BY MOUTH THREE TIMES A DAY (Patient not taking: Reported on 05/28/2023) 90 capsule 3 [DISCONTINUED] Larissia 0.1-20 mg-mcg per tablet [DISCONTINUED] methocarbamoL (ROBAXIN) 750 mg tablet TAKE 1 TO 2 TABLETS BY MOUTH 3 TIMES A DAY NEEDED (Patient not taking: Reported on 08/27/2023) [DISCONTINUED] Mimvey 1-0.5 mg per tablet Take 1 tablet by mouth daily No facility-administered encounter medications on file as of 08/28/2023. Review of Systems: Review of Systems Constitutional: [...] not nervous/anxious and is not hyperactive. BP 116/68 (BP Location: Left arm, Patient Position: Sitting) Pulse (!) 133 Temp 36.3 ??C (97.3 ??F) Resp 18 Ht 165.1 cm (5' 5) Wt 124 kg (273 lb 4.8 oz) SpO2 96% BMI 45.48 kg/m?? Physical Exam: Physical Exam Constitutional: He [...] complication, without long-term current use of insulin ([facility]) ([facility]) (Primary) Comments: chronic. Uncontrolled. Increase Mounjaro 7.5mg weekly Orders: - tirzepatide (Mounjaro) 7.5 mg/0.5 mL pen injector; Inject 7.5 mg under the skin every 7 days Abnormal weight gain - tirzepatide (Mounjaro) 7.5 mg/0.5 mL pen injector; Inject 7.5 mg under the skin every 7 days Class 3 severe obesity due to excess calories without serious comorbidity with body mass index (BMI) of 45.0 to 49.9 in adult ([facility]) - tirzepatide (Mounjaro) 7.5 mg/0.5 mL pen injector; Inject 7.5 mg under the skin every 7 days Recommended aggressive Lifestyle modification and weight loss for improving overall weight related health conditions. Follow up in 1 or 3 months for continuing Lifestyle Medicine education and management visit. Recommend Lifestyle/Nutrition/Weight Loss Seminar on every other Tuesdays @ 5pm. Body mass index is 45.48 kg/m??. BMI Plan: Nutrition/Activities/Behavioral Counseling. Education Provided. Follow up 1-3 months. Mark Wheat MD R ASSEMBLER documented in this encounter Plan of Treatment Not on file documented as of this encounter Visit Diagnoses Diagnosis Controlled type 2 diabetes mellitus without complication, without long-term current use of insulin ([facility]) ([facility])- Primary Abnormal weight gain Class 3 severe obesity due to excess calories without serious comorbidity with body mass index (BMI) of 45.0 to 49.9 in adult ([facility]) documented in this encounter Discontinued Medications Medication Sig Discontinue Reason Start Date End Da te Larissia 0.1-20 mg-mcg per tablet 04/15/2021 08/28/2023 Mimvey 1-0.5 mg per tablet Take 1 tablet by mouth daily 06/17/2022 08/28/2023 methocarbamoL (ROBAXIN) 750 mg tablet TAKE 1 TO 2 TABLETS BY MOUTH 3 TIMES A DAY NEEDED Therapy completed 04/19/2022 08/28/2023 gabapentin (NEURONTIN) 100 mg capsule TAKE 1 CAPSULE BY MOUTH THREE TIMES A DAY Therapy completed 03/28/2023 08/28/2023 documented as of this encounter Historical Medications * This list may reflect changes made after this encounter. progesterone (PROMETRIUM) 200 mg capsule Take 1 capsule (200 mg total) by mouth daily 08/25/2023 mirtazapine (REMERON) 15 mg tablet Take 1 tablet (15 mg total) by mouth nightly cranberry extract (Cranberry Juice Powder) 425 mg capsule Take by mouth added in this encounter Care Teams Hazardous Materials Waste Technician Relationship Specialty Start Date End Date Keyonna Armstrong PA PCP - General Nurse Practitioner 06/20/18 Gasper Ochoa MD [address] [place] [address] Consulting Physician Pain Management 08/31/21 documented as of this encounter
--- OUTSIDE RECORDS SUMMARY | 2024-07-10 23:17 | XMS_ITS | Encounter Summary ---
Author Organization [facility] Address [address] [address] Care Team Providers Care Boat Officer Name Role Phone Keyonna Armstrong Primary Care Provider + Gasper Ochoa MD Unavailable Reason for Referral * Procedure (Routine) - Closed Specialty Diagnoses / Procedures Referred By Contac t Referred To Contact Diagnoses Myalgia, other site Procedures Trigger Point Injection Valentina Curtis NP [address] [place] [address] [place] [id number] Phone: tel: fax: [facility] Referral ID Status Reason Start Date Expiration Date Visits Re quested Visits Authorized [id number] Closed 10/13/2021 11/12/2022 1 1 * Diagnostic Imaging (Routine) - Closed Specialty Diagnoses / Procedures Referred By Contac t Referred To Contact Diagnoses Chronic right-sided thoracic back pain Procedures XR Spine Thoracic 3 View Valentina Curtis NP [facility] [address] [address] [place] [address] [place] [phone] Phone: tel: fax: [facility] [address] [place] [phone] Referral ID Status Reason Start Date Expiration Date Visits Re quested Visits Authorized [id number] Closed 10/13/2021 11/12/2022 1 1 Reason for Visit * Reason Comments Pain * Consultation (Routine) - Closed Specialty Diagnoses / Procedures Referred By Lee t Referred To Contact Orthopedic Surgery Diagnoses Right shoulder pain, unspecified chronicity Cervicalgia Keyonna Armstrong PA [address] [place] [phone] Phone: tel: fax: [facility] Orthopedics and Sports Medicine [address] [facility] [address] [place] [address] Phone: tel: fax: Referral ID Status Reason Start Date Expiration Date V isits Requested Visits Authorized [id number] Closed Specialty Services Required 05/23/2021 12/19/2021 7 7 Encounter Details Date Type Department Care Team (Late st Contact Info) Description 10/13/2021 2:30 PM CDT Office Visit [facility] Orthopedics and Sports Medicine [address] [facility] [address] [place] [phone] Valentina Curtis NP [address] [place] [id number] Chronic right-sided thoracic back pain; Degenerative endplate of thoracic vertebra-multilevel moderate, more prominent midthoracic; Myalgia, other site Social History Tobacco Use Types Packs/Day Years [...] on file 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 Gender Identity Not on file Sexual Orientation Not on file 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 Not on file Not on file Not on leeann e documented as of this encounter Last Filed Vital Signs Vital Sign Reading Time Taken Comments Blood Pressure - - Pulse - - Temperature - - Respiratory Rate - - Oxygen Saturation - - Inhaled Oxygen Concentration - - Weight 124.7 kg (275 lb) 10/13/2021 2:39 PM CDT Height 165.1 cm (5' 5) 10/13/2021 2:39 PM CDT Body Mass Index 45.76 10/13/2021 2:39 PM CDT documented in this encounter Ordered Prescriptions Prescription Sig Dispense Quantity Refills Last Filled Start Date End Date tiZANidine (ZANAFLEX) 4 mg tablet Take 1 tablet PO HS PRN 30 tablet 10/13/2021 11/22/2021 documented in this encounter Progress Notes * Valentina Curtis, LODE MINER BLASTING - 10/13/2021 2:30 PM CDTAssociated Order(s): Trigger Point Injection Reason for Appointment 1. Right-sided thoracic back pain History of Present Illness: Veronica Evangelista is a 51 y.o. female arrived to the orthopedic department ambulatory, walking with no assisted devices. She is here today requesting have cortisone trigger point injection to the rightright thoracic back region between the scapulas which she describes as a point tenderness area of sharp, achy type pain. She states that the cortisone trigger point injection that I gave her to this area June 02, 2021 provided 100% reduction of her pain symptoms. Veronica reported having ongoing pain to the right scapular region for approximately 20 years with an unknown cause. More recently, she developed increased posterior neck pain with a numbness, tingling sensation radiating down the right arm to the thumb. She was treated by Dr. Jonathan Ochoa, interventional pain management for her neck pain symptoms. Previous conservative treatments and evaluations include the following: ?? She went to [facility] April 2021 and had dry needle therapy and physical therapy which she stopped due to increasing pain. ?? She has tried home cervical spine range of motion exercises. ?? April 2021-- [facility] ?? She has uses Voltaren gel, ibuprofen, acetaminophen, Robaxin and ice therapy. She previously tried Tylenol #3. ?? 05/30/2021--she was evaluated by Dr. Pepe Zepeda where it was determined that she did not have any need for right shoulder surgical intervention ?? June 21, 2021--EMG/NCS study right upper extremity completed by Dr. Memo Elliott without any abnormal findings ?? September 14, 2021--she had bilateral C5-C6 and bilateral C6-C7 facet joint injection with fluoroscopic guidance by Dr. Jonathan Ochoa ?? August 31, 2021- she had bilateral C4-5, C5-C6 and C6-C7 facet joint injection with fluoroscopic guidance by Dr. Jonathan Ochoa ? Recent injuries: summer--she fell out of the car landing on her right side on concrete. She was able to get herself up and walk. Assessment: Diagnosis Plan 1. Chronic right-sided thoracic back pain XR Spine Thoracic 3 View 2. Degenerative endplate of thoracic vertebra-multilevel moderate, more prominent midthoracic 3. Myalgia, other site Trigger Point Injection Plan: ??? Today I reviewed with Mary Grace, the thoracic spine x-ray obtained October 13, 2021. See the findings below for more details. ??? Today I gave Mary Grace (2) cortisone trigger point injections using 1 mL 1% lidocaine without epi and 40 mg triamcinolone each to the right midthoracic paraspinal muscle region where there were focal areas of hyperirritability with palpation. ??? I reviewed with Veronica and her , the thoracic spine x-ray obtained October 13, 2021. See the findings below for more details of the x-ray. ??? She has a follow-up appointment scheduled January 13, 2022 for her right mid thoracic back pain symptoms. Imaging Reviewed: Thoracic spine x-ray October 13, 2021, findings [...] 2021 and September 14, 2021) FINDINGS: ALIGNMENT: ?Straightening of the cervical lordosis. ??There is grade 1 anterolisthesis of C3 on C4 and grade 1 retrolisthesis of C5 on C6. Grade 1 anterolisthesis of C7 on T1. VERTEBRAE: ?There is no acute compression fracture in the cervical spine. ??In the setting of trauma a CT has higher sensitivity for subtle spinal fractures and can be obtained as clinically indicated. ??Multilevel cctp-ab-truwujpq endplate degenerative changes with marginal spur formation. ??Multilevel bilateral facet arthropathy including on the left at C3-C4 where there are edematous changes in the posterior elements suggestive of synovitis. DISCS: ?Moderate disc desiccation and height loss at C5-C6 and to lesser extent remainder of thecervical levels. HARDWARE: ?None in the spine. CORD: ?No discrete T2 hyperintense cord signal alteration is reproduced on 2 separate sequences. INDIVIDUAL LEVELS: C2-C3: Disc bulge without significant spinal canal or neural foraminal narrowing. ??Bilateral facetarthropathy. C3-C4: Anterolisthesis of C3 on C4 with unroofing of the disc. ??There is thickened ligamentum flavum. ??No significant spinal canal stenosis. Uncovertebral spurring and [...] Thickened ligamentum flavum. Moderate spinal canal stenosis. ??Uncovertebral spurring and facet arthropathy with moderate right and left neural foraminal narrowing. C6-C7: Posterior disc osteophyte complex indents the ventral cord. Thickened ligamentum flavum. ??Cqut-ox-zniybatr spinal canal stenosis. Uncovertebral spurring and facet arthropathy with mild right and jlxi-nn-ddobugxn left neural foraminal narrowing. C7-T1: Anterolisthesis of C7 on T1 with unroofing of the disc. ??No significant spinal canal or neural foraminal narrowing. UPPER THORACIC: ?Incompletely imaged. No high-grade spinal canal stenosis. IMPRESSION: 1. Multilevel pjfz-mm-mmvtqvec cervical spondylotic changes as described. Spinal canal narrowing ismost noticeable at C5-C6 and C6-C7. 2. Varying degrees of bilateral neural foraminal stenosis and additional findings as discussed above. Cervical spine x-ray (6 views) June 02, [address] Sher Giron: FINDINGS: ALIGNMENT: ??There is trace anterolisthesis of C3 with respect to C4 without evidence of instability on flexion or extension views. VERTEBRAE: ??Vertebral bodies of normal height. Mild mid cervical spine facet and uncovertebral hypertrophy. DISCS: ??Mild multilevel loss of intervertebral body disc space with endplate sclerosis and marginal osteophytosis favoring C5-C6. FORAMINA: ??No osseous stenosis. HARDWARE: ??None in the spine. SOFT TISSUES: ??No soft tissue swelling. ??Lung apices clear. OTHER: ??No other significant finding. IMPRESSION: ?Mild cervical spondylosis as above. ?? EMG/NCS study right upper extremity completed June 21, [address] Memo Elliott: Conclusion: 3. There is no electrodiagnostic evidence of a right cervical radiculopathy, brachial plexopathy, suprascapular neuropathy right median, ulnar or radial focal distal neuropathy at the wrist or at theelbow at present time. 4. Normal needle EMG examination of selected muscles [...] Yes Indications: Myalgia Procedure Details: Location: R thoracic paraspinal Local anesthetic: Ethyl chloride spray Ultrasound guidance: No Needle size: 25 G Number of muscles: 1 or 2 Approach: Posterior 2 mL lidocaine 10 mg/mL (1 %); 80 mg triamcinolone 40 mg/mL Patient tolerance: Patient tolerated the procedure well with no immediate complications Examination: Ortho Exam Cervical & thoracic spine exam: Inspection of the cervical and thoracic spine shows normal alignment, no surgical scars, no skin defects, no muscle atrophy, no masses, no rashes. No presence of scapular winging. Palpation: No concerning pain with palpation over the cervical or thoracic spinous process region. No tenderness with palpation of the right cervical paraspinal/facet region at any level. There is a focal area of tenderness with palpation to the right rhomboid major muscle region. Range of motion with flexion is 50??, extension is 60??, with lateral rotation is 80?? and lateral bending is 45?? Spurlings test is negative for radicular pain down the bilateral arm Hoffmans test is negative. Lhermittes sign is negative. Sensation is intact in the median, ulnar, radial and axial distribution. Motor strength is intact with 5/5 strength of the deltoid with resisted abduction, 5/5 strength of the biceps with resisted elbow flexion, 5/5 strength of the triceps with resisted elbow extension. She is able to give a thumbs up, give an okay sign, abduct the fingers, cross the fingers, adduct thethumb to the fifth finger, and exhibit full forensic nurse strength Perfusion: 2+ radial and ulnar pulses. Fingers warm to touch with capillary refill < 2 seconds. GENERAL APPEARANCE: Well-nourished, in no acute distress. BMI > 45 NECK: Neck supple. No pain with palpation over the cervical or thoracic spinous process region. SKIN: No presence of erythema or ecchymosis. No presence of skin excoriation or rashes, good turgor, warm and dry, no suspicious lesions HEART:Regular rate LUNGS: Unlabored breathing ABDOMEN: Soft,no guarding MUSCULOSKELETAL: See cervical and thoracic spine exam above. EXTREMITIES: Capillary refill < 2 seconds in upper extreme nail beds, 2+ bilateral radial, ulnarperipheral pulses, no bilateral upper extremity peripheral edema NEUROLOGIC: Alert and oriented. She walks independently with a stable gait with no assisted devices. PSYCH: Cooperative with exam Allergies: Trazodone Medications: Current Outpatient Medications: ??? buPROPion SR (WELLBUTRIN SR) 150 mg 12 hr tablet, Take 1 tablet by mouth 2 (two) times a day, Disp: , Rfl: ??? cholecalciferol (VITAMIN D-3) 5,000 unit capsule, Take 5,000 Units by mouth every morning, Disp: , Rfl: ??? hydroCHLOROthiazide (HYDRODIURIL) 25 mg tablet, Take 25 mg by mouth every morning. , Disp: , Rfl: 0 ??? ibuprofen (ADVIL,MOTRIN) 800 mg tablet, , Disp: , Rfl: ??? lisinopril (PRINIVIL,ZESTRIL) 40 mg tablet, Take 40 mg by mouth every morning. , Disp: , Rfl: 0 ??? LORazepam (ATIVAN) 1 mg tablet, , Disp: , Rfl: ??? metFORMIN (GLUCOPHAGE) 500 mg tablet, TAKE 1 TABLET BY MOUTH EVERY MORNING AND TAKE 2 TABLETS AT BEDTIME, Disp: , Rfl: 1 ??? metoprolol XL (TOPROL-XL) 100 mg 24 hr tablet, Take 100 mg by mouth nightly. , Disp: , Rfl: 1 ??? multivitamin tablet, Take 1 tablet by mouth every morning., Disp: , Rfl: ??? NOT IN DATABASE, PRESCRIPTION,, Spark Zinc and Selenium supplement for thyroid, Disp: , Rfl: ??? pantoprazole DR (PROTONIX) 20 mg EC tablet, 20 mg , Disp: , Rfl: ??? venlafaxine XR (EFFEXOR-XR) 75 mg 24 hr capsule, Take 225 mg by mouth nightly., Disp: , Rfl: ??? VENTOLIN HFA 90 mcg/actuation inhaler, TAKE 2 PUFFS BY MOUTH EVERY 4 HOURS NEEDED FOR WHEEZING, Disp: , Rfl: 1 ??? vit A,C and S-nezlcx-ynpffiad (OCUVITE with LUTEIN) 1,000 unit-200 mg-60 unit-2 mg tablet, Take1 tablet by mouth daily, Disp: , Rfl: ??? zolpidem (AMBIEN) 10 mg tablet, TAKE 1 TABLET BY MOUTH AT BEDTIME NEEDED, Disp: , Rfl: 1 ??? acetaminophen-codeine (TYLENOL with CODEINE #3) 300-30 mg per tablet, , Disp: , Rfl: ??? amLODIPine (NORVASC) 5 mg tablet, Take 5 mg by mouth. (Patient not taking: No sig reported), Disp: , Rfl: ??? aspirin 81 mg chewable tablet, 81 mg daily (Patient not taking: No sig reported), Disp: , Rfl: ??? diclofenac sodium (VOLTAREN) 1 % gel, Apply 4 g topically 4 (four) times a day (Patient not taking: No sig reported), Disp: , Rfl: ??? fluticasone propionate (FLONASE) 50 mcg/actuation nasal spray, SPRAY 1 SPRAY INTO EACH NOSTRIL EVERY DAY (Patient not taking: No sig reported), Disp: , Rfl: ??? glucosamine/chondr hernadez A sod (OSTEO BI-FLEX ORAL), Take 1 tablet by mouth every morning. (Patient not taking: No sig reported), Disp: , Rfl: ??? Lactobacillus acidophilus (Probiotic) 10 billion cell capsule, Rx: Probiotic - Capsule (Patientnot taking: No sig reported), Disp: , Rfl: ??? Larissia 0.1-20 mg-mcg per tablet, , Disp: , Rfl: ??? ondansetron (ZOFRAN) 4 mg tablet, Take 1 tablet (4 mg total) by mouth every 6 (six) hours as needed for nausea or vomiting. (Patient not taking: No sig reported), Disp: 15 tablet, Rfl: 1 ??? oxyCODONE (ROXICODONE) 5 mg immediate release tablet, Take 1 tablet (5 mg total) by mouth every4 (four) hours as needed for pain. (Patient not taking: No sig reported), Disp: 20 tablet, Rfl: 0 ??? sennosides (Laxative Maximum Strength) 25 mg tablet, 25 mg daily (Patient not taking: No sig reported), Disp: , Rfl: ??? simethicone (MYLICON) 80 mg chewable tablet, 80 mg 4 (four) times a day (Patient not taking: Nosig reported), Disp: , Rfl: ??? tiZANidine (ZANAFLEX) 4 mg tablet, Take 1 tablet PO HS PRN, Disp: 30 tablet, Rfl: 0 Past Medical History: Past Medical History: Diagnosis [...] ??? URETERAL STENT PLACEMENT Left 11/04/2003, 11/2003 Social History: Social History Occupational History ??? 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 Smoking status: Never Smoker ??? Smokeless tobacco: Never Used Substance and Sexual Activity ??? Alcohol use: No ??? Drug use: No ??? Sexual activity: Not on file Vital Signs: Height 165.1 cm (5' 5), weight 124.7 kg (275 lb), not currently . BMI Readings from Last 1 Encounters: 10/13/21 45.76 kg/m?? Valentina Curtis NP documented in this encounter Plan of Treatment Not on file documented as of this encounter Procedures Procedure Name Priority Date/Time Associated Diagnosis Comments [place] INJECTION SINGLE/PNEUMATIC DEICER INSPECTOR TRIGGER POINT 1/2 MUSCLES Routine 10/13/2021 2:30 PM CDT Myalgia, other site documented in this encounter Results * XR [...] D: ??10/14/2021 8:17 AM T: Report ID: [id number] Reading Location: ??[id number] Procedure Note Emory Fisher MD - 10/14/2021 [...] 8:17 AM - Electronically signed by Emory CONTE T: Report ID: [id number] Reading Location: [id number] us Valentina Curtis NP IMG XR PROCEDURES Final Res ult * [place] INJECTION SINGLE/PNEUMATIC DEICER INSPECTOR TRIGGER POINT 1/2 MUSCLES (10/13/2021 2:30 PM CDT) Narrative Valentina Curtis NP - 10/13/2021 2:30 PM CDT Valentina Curtis NP ? 10/14/2021 ??5:05 PM Trigger Point Injection Performed by: Valentina [...] Yes ?Indications: ??Myalgia Procedure Details: ??Location: ??R thoracic paraspinal ??Local anesthetic: ??Ethyl chloride spray ??Ultrasound guidance: No ?Needle size: ??25 G ??Number of muscles: ??1 or 2 ??Approach: ??Posterior ?? 2 mL lidocaine 10 mg/mL (1 %); 80 mg triamcinolone 40 mg/mL ??Patient tolerance: ??Patient tolerated the procedure well with no immediate complications Valentina Curtis LODE MINER BLASTING IN CLINIC/BEDSIDE ORDERABLE S Final Result documented in this encounter Visit Diagnoses Diagnosis Chronic right-sided thoracic back pain Degenerative endplate of thoracic vertebra-multilevel moderate, more prominent midthoracic Myalgia, other site Chronic right-sided thoracic back pain documented in this encounter Administered Medications Inactive Administered Medications - up to 3 most recent administrations Medication Order MAR Action Action Date Dose Rate Site lidocaine (XYLOCAINE) 10 mg/mL (1 %) injection 2 mL 2 mL, One-Time Injection, Starting on Nela 10/13/21 at 1539, For 1 dose, Indications: Administration of Local AnesthesiaIndications:Administratio n of Local Anesthesia Given 10/13/2021 3:39 PM CDT 2 mL triamcinolone (KENALOG) 40 mg/mL injection 80 mg 80 mg, intra-articular, One-Time Injection, Starting on Nela 10/13/21 at 1539, For 1 doseIndications:Myalgia, other site Given 10/13/2021 3:39 PM CDT 80 mg documented in this encounter Discontinued Medications Medication Sig Discontinue Reason Start Date End Da te methocarbamol (ROBAXIN) 750 mg tablet Take 1-2 tablets by mouth. Alternate therapy 08/11/2014 10/13/2021 documented as of this encounter Care Teams Boat Officer Relationship Specialty Start Date End Date Keyonna Armstrong PA PCP - General Nurse Practitioner 06/20/18 Gasper Ochoa MD [address] [facility] [place] [address] Consulting Physician Pain Management 08/31/21 documented as of this encounter
--- OUTSIDE RECORDS SUMMARY | 2024-07-10 23:17 | XMS_ITS | Encounter Summary ---
Author Organization [facility] Address [address] [address] Care Team Providers Care Self Sealing Fuel Tank Builder Name Role Phone Keyonna Armstrong Primary Care Provider + Gasper Ochoa MD Unavailable Reason for Referral * Procedure (Routine) - Closed Specialty Diagnoses / Procedures Referred By Contac t Referred To Contact Diagnoses Pain of left sacroiliac joint Procedures Sacroiliac joint injection Valentina Curtis NP [address] [facility] [address] [place] [address] [place] [address] Phone: tel: fax: [facility] Referral ID Status Reason Start Date Expiration Date Visits Re quested Visits Authorized [id number] Closed 02/26/2023 03/27/2024 1 1 * Procedure (Routine) - Closed Specialty Diagnoses / Procedures Referred By Contac t Referred To Contact Diagnoses Pain of right sacroiliac joint Procedures Sacroiliac joint injection Valentina Curtis NP [facility] [address] [place] [address] [place] [id number] Phone: tel: fax: [facility] Referral ID Status Reason Start Date Expiration Date Visits Re quested Visits Authorized [id number] Closed 02/26/2023 03/27/2024 1 1 * Procedure (Routine) - Closed Specialty Diagnoses / Procedures Referred By Lee saunders Referred To Contact Diagnoses Myalgia, other site Procedures Trigger Point Injection Valentina Curtis NP [address] [place] [address] [address] Phone: tel: fax: [facility] Referral ID Status Reason Start Date Expiration Date Visits Re quested Visits Authorized [id number] Closed 02/26/2023 03/27/2024 1 1 Reason for Visit * Reason Comments Pain Encounter Details Date Type Department Care Team (Late st Contact Info) Description 02/26/2023 11:00 AM CDT Office Visit [facility] Orthopedics and Sports Medicine [address] [place] [phone] Valentina Curtis NP [address] [place] [address] [address] Myalgia, other site; Pain of right sacroiliac joint; Pain of left sacroiliac joint; Chronic bilateral low back pain without sciatica; [...] on file 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 Gender Identity Not on file Sexual Orientation Not on file 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 Not on file Not on file Not on leeann e documented as of this encounter Last Filed Vital Signs Vital Sign Reading Time Taken Comments Blood Pressure - - Pulse - - Temperature - - Respiratory Rate - - Oxygen Saturation - - Inhaled Oxygen Concentration - - Weight 127 kg (280 lb) 02/26/2023 11:06 AM CDT Height 165.1 cm (5' 5) 02/26/2023 11:06 AM CDT Body Mass Index 46.59 02/26/2023 11:06 AM CDT documented in this encounter Progress Notes * Valentina Curtis, TECHNICAL SUPPORT MANAGER - 02/26/2023 11:00 AM CDTAssociated Order(s): Trigger Point Injection; Sacroiliac joint injection; Sacroiliac joint injection Post-Procedure Diagnose(s): Myalgia, other site; Pain of right sacroiliac joint; Pain of left sacroiliac joint Reason for Appointment Chronic neck pain, chronic lumbar pain History of Present Illness: Veronica Evangelista is a 52 y.o. female arrived to the orthopedic department arrived ambulatory, walking with no assisted devices. She is here today for evaluation of her chronic neck pain, chronic lumbar pain symptoms. Today she reports that she no longer has neck pain symptoms. She continues to have lower lumbar pain with her pain more prominent to the right lower lumbar region, bilateral sacroiliac joint region and right gluteal region with no radicular leg pain symptoms. She describes her pain symptoms as increasing up to 5/10 achy, sometimes sharp pain. She currently uses gabapentin and ibuprofen which helps with pain reduction and her last cortisone trigger point injections given November 20, 2022 provided up to 75% reduction of pain symptoms. She reports that she is now joined [employer] and plans to go to water exercise classes every Sunday and . Her neck pain symptoms have resolved-her last cortisone trigger point injections for her neck pain symptoms were given August 22, 2022. Her chronic neck pain, chronic lumbar pain symptoms worsened in 2020 after she fell out of a car landing on her right side on concrete. She had fluoroscopy guided cortisone injections for her lumbar pain symptoms by Dr. Jonathan Ochoa, interventional pain management in 2021. Previous conservative treatments and evaluations include the following: She has had previous cortisone trigger point injections for her chronic lumbar pain with her last cortisone trigger point injections given 11/20/2022. She had cortisone trigger point injections for her chronic neck pain symptoms August 22, 2022. She went to [facility] April 2021 and had dry needle therapy and physical therapy which she stopped due to increasing pain. She has tried home cervical spine range of motion exercises. April 2021-- she went to Dr. Mars, chiropractor at [facility] with no reduction of pain symptoms. 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 Assessment: Diagnosis Plan 1. Myalgia, other site Trigger Point Injection 2. Pain of right sacroiliac joint Sacroiliac joint injection 3. Pain of left sacroiliac joint Sacroiliac joint injection 4. Chronic bilateral low back pain without sciatica 5. Lumbar facet arthropathy, multilevel mild/moderate 6. DDD (degenerative disc disease), lumbar, moderate L3-L4, L4-L5 7. Anterolisthesis of lumbar spine, mild L1 on L2, L2 on L3, L3 on L4 Plan: For her lumbar pain symptoms, bilateral sacroiliac joint pain symptoms--today I gave Veronica cortisone injections using 2 mL 1% lidocaine without epi and 40 mg triamcinolone to the bilateral sacroiliacjoint region where there was reproducible pain with palpation. If her bilateral sacroiliac joint pain symptoms should persist, then consideration for ordering CT-guided sacroiliac joint injections could be considered as an option. For her lumbar pain symptoms, today I gave Angela a cortisone triggerpoint injection using 2 mL 1% lidocaine without epi and 40 mg triamcinolone to the right lower lumbar paraspinal muscle region near L5 and the right ischial gluteal muscle region where there were foca l areas of hyperirritability with palpation. She has a follow-up appointment scheduled with me on May 28, 2023 for evaluation of her lumbar pain, sacroiliac joint pain symptoms. She plans to go to [employer] for water exercises every Sunday and . Her BMI is 46.59. She plans to continue to work on weight reduction. She has expressed concern for possible osteoporosis and would like to be evaluated to see if she has osteoporosis. I have scheduled her March 14, 2023 with [facility] for an osteoporosis evaluation. Imaging Reviewed: Lumbar spine x-ray (6 views) [...] There is preservation of vertebral body height. Ufmr-ax-pwouaqpl multilevel degenerativeendplate change. Dcrr-nx-aknrkowj facet arthropathy mid through lower lumbar spine. [...] can be obtained as clinically indicated. Multilevel wpdg-hn-aqklilry endplate degenerative changes with marginal spur formation. [...] indents the ventral cord. Thickened ligamentum flavum. Elap-wl-atdoacef spinal canal stenosis. Uncovertebral spurring and facet arthropathy with mild right and uykm-cj-hbisiyft left neural foraminal narrowing. C7-T1: Anterolisthesis of C7 on T1 with unroofing of the disc. No significant spinal canal or neural foraminal narrowing. UPPER THORACIC: Incompletely imaged. No high-grade spinal canal stenosis. IMPRESSION: Multilevel gztb-ht-ofufybfr cervical spondylotic changes as described. Spinal canal [...] Details: Location: R lumbar paraspinal and R gluteus denton Local anesthetic: Ethyl chloride spray Ultrasound guidance: No Needle size: 22 G Number of muscles: 1 or 2 Approach: Posterior 4 mL lidocaine 10 mg/mL (1 %); 80 mg triamcinolone 40 mg/mL Patient tolerance: Patient tolerated the procedure well with no immediate complications Sacroiliac joint injection Performed by: Valentina Curtis NP Authorized by: Valentina Curtis NP Sacral Iliac Joint Injection: Consent Given by: Patient Site marked: the procedure site was marked Timeout: prior to procedure the correct patient, procedure, and site was verified Verbal consent obtained?: Yes Supporting Documentation: Indications: Pain Procedure Details: Site: Right Sacral Iliac Joint Patient position: Prone Needle Size: 22 G Ultrasound guidance: No Approach: Posterior Medications: 2 mL lidocaine 10 mg/mL (1 %); 40 mg triamcinolone 40 mg/mL Patient tolerance: Patient tolerated the procedure well with no immediate complications Sacroiliac joint injection Performed by: Valentina Curtis NP Authorized by: Valentina Curtis NP Sacral Iliac Joint Injection: Consent Given by: Patient Timeout: prior to procedure the correct patient, procedure, and site was verified Verbal consent obtained?: Yes Supporting Documentation: Indications: Pain Procedure Details: Site: Left Sacral Iliac Joint Patient position: Prone Needle Size: 22 G Approach: Posterior Medications: 2 mL lidocaine 10 mg/mL (1 %); 40 mg triamcinolone 40 mg/mL Examination: Ortho Exam Cervical spine exam: Inspection of the cervical spine shows normal alignment, no cervical surgical scars, no skin defects, no muscle atrophy, no masses, no rashes. Palpation: No concerning pain with palpation over the cervical spinous process region and no pain with palpation over the cervical paraspinal muscle or facet region. Range of motion with flexion is [...] to the fifth finger, and exhibit full water resource manager strength Perfusion: 2+ radial and ulnar pulses. [...] paraspinal muscle region greatestat L-3, L-4 and L-5 pain more prominent near L5. There is pain with palpation of the bilateral sacroiliac joint region and the right ischial gluteal region. Straight leg raise produces negative [...] hip adduction, abduction and flexion of the hips RightSacroiliac joint exam: Inspection: The skin is intact across the right sacroiliac joint with no signs of erythema, no ecchymosis, no rashes Pain: primarily experience between the upper level of the right iliac crest and the right gluteal fold. Sacroiliac joint compression test is positive for increased right sacroiliac joint pain CAMILO test is positive for increased right sacroiliac joint pain [place]'s Test is positive for increased right sacroiliac joint pain Left Sacroiliac joint exam: Inspection: The skin is intact across the left sacroiliac joint with no signs of erythema, no ecchymosis, no rashes Pain: primarily experience between the upper level of the left iliac crest and the left gluteal fold. Sacroiliac joint compression test is positive increased left sacroiliac joint pain CAMILO test is positive for increased left sacroiliac joint pain [place]'s Test is positive for increased left sacroiliac joint pain Knee and ankle exam: full and equal strength with knee extension, flexion, ankle dorsi and plantar flexion. General Appearance: Well-nourished, in no acute distress. BMI 46.59. Heart: No chest Lungs: Unlabored breathing Abdomen: [...] EACH NOSTRIL EVERY DAY, Disp: , Rfl: gabapentin (NEURONTIN) 100 mg capsule, TAKE 1 CAPSULE BY MOUTH THREE TIMES A DAY, Disp: 90 capsule,Rfl: 3 hydroCHLOROthiazide (HYDRODIURIL) 25 mg tablet, Take [...] Disp: , Rfl: 1 vit A,C and E-cgzvxm-ldolluci (OCUVITE with LUTEIN) 1,000 unit-200 mg-60 unit-2 [...] taking: Reported on 08/17/2022), Disp: , Rfl: glucosamine/chondr hernadez A sod (OSTEO BI-FLEX ORAL), Take 1 tablet by mouth every morning (Patient nottaking: Reported on 08/17/2022), Disp: , Rfl: oxyCODONE (ROXICODONE) 5 mg immediate release tablet, Take 1 tablet (5 mg total) by mouth every 4 (four) hours as needed for pain. (Patient not taking: Reported on 02/26/2023), Disp: 20 tablet, Rfl: 0 Past Medical History: Past [...] activity: None Alcohol Use: Not At Risk (09/14/2021) AUDIT-C Frequency of Alcohol Consumption: Never Average Number of Drinks: Not on file Frequency of Binge Drinking: Never Vital Signs: Height 165.1 cm (5' 5), weight 127 kg (280 lb), not currently . BMI Readings from Last 1 Encounters: 02/26/23 46.59 kg/m?? Valentina Curtis NP documented in this encounter Plan of Treatment Not on file documented as of this encounter Procedures Procedure Name Priority Date/Time Associated Diagnosis Comments NV INJECTION SINGLE/CERT OCCUPATIONAL THERAPY ASST TRIGGER POINT 1/2 MUSCLES Routine 02/26/2023 11:00 AM CDT Pain of left sacroiliac joint NV INJECTION SINGLE/CERT OCCUPATIONAL THERAPY ASST TRIGGER POINT 1/2 MUSCLES Routine 02/26/2023 11:00 AM CDT Pain of right sacroiliac joint NV INJECTION SINGLE/CERT OCCUPATIONAL THERAPY ASST TRIGGER POINT 1/2 MUSCLES Routine 02/26/2023 11:00 AM CDT Myalgia, other site documented in this encounter Results * NV INJECTION SINGLE/CERT OCCUPATIONAL THERAPY ASST TRIGGER POINT 1/2 MUSCLES (02/26/2023 11:00 AM CDT) Narrative Valentina Curtis NP - 02/26/2023 11:00 AM CDT Valentina Curtis NP ? 02/26/2023 ??9:39 PM Sacroiliac joint injection Performed by: Valentina Curtis NP Authorized by: Valentina Curtis NP ?? Sacral Iliac Joint Injection: ??Consent Given by: ??Patient ??Timeout: prior to procedure the correct patient, procedure, and site was verified ?Verbal consent obtained?: Yes ?? Supporting Documentation: ??Indications: ??Pain Procedure Details: ??Site: ??Left Sacral Iliac Joint ??Patient position: ??Prone ??Needle Size: ??22 G ??Approach: ??Posterior ??Medications: ??2 mL lidocaine 10 mg/mL (1 %); 40 mg triamcinolone 40 mg/mL Valentina Curtis NP IN CLINIC/BEDSIDE ORDERABLE S Final Result * NV INJECTION SINGLE/CERT OCCUPATIONAL THERAPY ASST TRIGGER POINT 1/2 MUSCLES (02/26/2023 11:00 AM CDT) Narrative Valentina Curtis NP - 02/26/2023 11:00 AM CDT Valentina Curtis NP ? 02/26/2023 ??9:39 PM Sacroiliac joint injection Performed by: Valentina Curtis NP Authorized by: Valentina Curtis NP ?? Sacral Iliac Joint Injection: ??Consent Given by: ??Patient ??Site marked: the procedure site was marked ?Timeout: prior to procedure the correct patient, procedure, and site was verified ?Verbal consent obtained?: Yes ?? Supporting Documentation: ??Indications: ??Pain Procedure Details: ??Site: ??Right Sacral Iliac Joint ??Patient position: ??Prone ??Needle Size: ??22 G ??Ultrasound guidance: No ?Approach: ??Posterior ??Medications: ??2 mL lidocaine 10 mg/mL (1 %); 40 mg triamcinolone 40 mg/mL ??Patient tolerance: ??Patient tolerated the procedure well with no immediate complications us Valentina Curtis NP IN CLINIC/BEDSIDE ORDERABLE S Final Result * NV INJECTION SINGLE/CERT OCCUPATIONAL THERAPY ASST TRIGGER POINT 1/2 MUSCLES (02/26/2023 11:00 AM CDT) Narrative Valentina Curtis NP - 02/26/2023 11:00 AM CDT Valentina Curtis NP ? 02/26/2023 ??9:39 PM Trigger Point Injection Performed by: Valentina [...] Details: ??Location: ??R lumbar paraspinal and R gluteus denton ??Local anesthetic: ??Ethyl chloride spray ??Ultrasound guidance: No ?Needle size: ??22 G ??Number of muscles: ??1 or 2 ??Approach: ??Posterior ?? 4 mL lidocaine 10 mg/mL (1 %); 80 mg triamcinolone 40 mg/mL ??Patient tolerance: ??Patient tolerated the procedure well with no immediate complications us Valentina Curtis TECHNICAL SUPPORT MANAGER IN CLINIC/BEDSIDE ORDERABLE S Final Result documented in this encounter Visit Diagnoses Diagnosis Myalgia, other site Pain of right sacroiliac joint Pain of left sacroiliac joint Chronic bilateral low back pain without sciatica [...] mL 2 mL, One-Time Injection, Starting on Sun02/26/23 at 1157, For 1 dose, Indications: Administration of Local AnesthesiaIndications:Administrati on of Local Anesthesia Given 02/26/2023 11:57 AM CDT 2 mL lidocaine (XYLOCAINE) 10 mg/mL (1 %) injection 2 mL 2 mL, One-Time Injection, Starting on Sun02/26/23 at 1158, For 1 dose, Indications: Administration of Local AnesthesiaIndications:Administrati on of Local Anesthesia Given 02/26/2023 11:58 AM CDT 2 mL lidocaine (XYLOCAINE) 10 mg/mL (1 %) injection 4 mL 4 mL, One-Time Injection, Starting on Sun02/26/23 at 1155, For 1 dose, Indications: Administration of Local AnesthesiaIndications:Administrati on of Local Anesthesia Given 02/26/2023 11:55 AM CDT 4 mL triamcinolone (KENALOG) 40 mg/mL injection 40 mg 40 mg, One-Time Injection, Starting on Sun02/26/23 at 1157, For 1 doseIndications:Pain of right sacroiliac joint Given 02/26/2023 11:57 AM CDT 40 mg triamcinolone (KENALOG) 40 mg/mL injection 40 mg 40 mg, One-Time Injection, Starting on Sun02/26/23 at 1158, For 1 doseIndications:Pain of left sacroiliac joint Given 02/26/2023 11:58 AM CDT 40 mg triamcinolone (KENALOG) 40 mg/mL injection 80 mg 80 mg, One-Time Injection, Starting on Sun02/26/23 at 1155, For 1 doseIndications:Myalgia, other site Given 02/26/2023 11:55 AM CDT 80 mg documented in this encounter Care Teams Self Sealing Fuel Tank Builder Relationship Specialty Start Date End Date Keyonna Armstrong PA PCP - General Nurse Practitioner 06/20/18 Gasper Ochoa MD [address] [facility] [address] [facility] [place] [address] Consulting Physician Pain Management 08/31/21 documented as of this encounter
--- OUTSIDE RECORDS SUMMARY | 2024-07-10 23:17 | XMS_ITS | Encounter Summary ---
Author Organization [facility] Address [address] [facility] [address] [place] [address] Care Team Providers Care Ceo & Board Director Name Role Phone Keyonna Armstrong Primary Care Provider + Gasper Ochoa MD Unavailable Reason for Visit * Reason Onset Date Comments Medical Question/Miscellaneous 08/16/2022 Encounter Details Date Type Department Care Team (Late st Contact Info) Description 08/16/2022 Telephone [facility] Patient Access [address] [facility] [address] [place] [address] Keyonna Armstrong PA [address] [place] [id number] Medical Question/Miscellaneous Social History Tobacco Use [...] on file 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 CTOR VOICE * Telephone Encounter - Melvin Ruiz - 08/16/2022 12:02 PM CST Medical Question/Miscellaneous Caller???s Concern: Miguel(/on hippa) called and relayed that Veronica is still feeling very ill and can't make it to her appointment for tomorrow 08/18 with jonas Burns, he relayed that they are needing to change it to a date for sometime next week or early August. Veronica relayed that she is worried about her phentermine 15 mg capsule, she is completely out, she relayed that she is doing weight loss programwith Dr. Wheat and wanted to know about getting the medication ref ills since she is out and needingher appointment change to next week or early August, cs tried to get appointment made dates out until 09/28. Requesting follow up on what to do next. Caller???s Call back #: [phone] Does message need to be routed?Yes-Action Needed CTOR VOICE documented in this encounter Plan of Treatment Not on file documented as of this encounter Visit Diagnoses Not on filedocumented in this encounter Care Teams Ceo & Board Director Relationship Specialty Start Date End Date Keyonna Armstrong PA PCP - General Nurse Practitioner 06/20/18 Gasper Ochoa MD [address] [facility] [address] [facility] [place] [address] Consulting Physician Pain Management 08/31/21 documented as of this encounter
--- OUTSIDE RECORDS SUMMARY | 2024-07-10 23:17 | XMS_ITS | Encounter Summary ---
Author Organization [facility] Healthcare Address [address] [place] [address] Care Team Providers Care Insurance Claims Assistant Name Role Phone Keyonna Armstrong Primary Care Provider + Gasper Ochoa MD Unavailable Reason for Visit * Reason Comments Neck Pain Encounter Details Date Type Department Care Team (Latest Contact Info) Description 09/14/2021 8:38 AM STRAINER MILL OPERATOR - 09/14/2021 11:59 PM STRAINER MILL OPERATOR Hospital Encounter [facility] Pain Mgmt [address] [place] [address] Gasper Ochoa MD [address] [place] [address] [place] [address] Bulge of cervical disc without myelopathy (Primary Dx); Facet arthropathy, cervical; Neural foraminal stenosis of cervical spine; Radiculopathy, cervical Discharge Disposition: Discharge to home or self [...] on file Legal Sex Female 6:41 PM STRAINER MILL OPERATOR Gender Identity Not on file Sexual Orientation Not on file 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 Not on file Not on leeann e documented as of this encounter Last Filed Vital Signs Vital Sign Reading Time Taken Comments Blood Pressure 137/82 09/14/2021 9:49 AM STRAINER MILL OPERATOR Pulse 79 09/14/2021 9:49 AM STRAINER MILL OPERATOR Temperature 36.5 ??C (97.7 ??F) 09/14/2021 8:42 AM CS T Respiratory Rate 20 09/14/2021 9:49 AM STRAINER MILL OPERATOR Oxygen Saturation 96% 09/14/2021 9:49 AM STRAINER MILL OPERATOR Inhaled Oxygen Concentration - - Weight - - Height - - Body Mass Index - - documented in this encounter Discharge Instructions * Discharge Instructions* Stella Weiss RN - 09/14/2021 9:53 AM STRAINER MILL OPERATOR YOUR NEXT APPOINTMENT IS FOR A FOLLOW-UP EVALUATION HOME CARE INSTRUCTIONS - INJECTIONS What to do today after you leave the clinic: -Generally limit your activity today, but bed rest is not required. -DO NOT DRIVE or operate machinery (e.g., a sugar cane planter machine operator or sewing machine) for 12 hours. -Don't [...] you don't understand or can'tcomplete at home. INER MILL OPERATOR documented in this encounter Medications at [...] Take 1-2 tablets by mouth. 08/11/2014 2 NOT IN DATABASE, PRESCRIPTION, Spark Zinc and [...] or self care documented in this encounter Procedure Notes * Gasper Ochoa MD - 09/14/2021 12:00 AM CST Preoperative Diagnoses 1. 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 2. Cervical spondylosis. 3. Chronic neck pain. Postoperative Diagnoses 1. 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 2. Cervical spondylosis. 3. Chronic neck pain. Type of procedure Bilateral C5-C6 and bilateral C6-C7 facet joint injection with fluoroscopic guidance. Indication Chronic pain due to multilevel cervical facet joint degenerative joint disease. Description of Procedure After obtaining informed consent, the patient was taken to the procedure room, placed in a prone position on the table. The patient's neck was prepared and draped in a sterile fashion. Local anesthesia was obtained with 1% lidocaine. With multiplane fluoroscopic guidance, a 22-gauge spinal needle was in turn placed into right C6-C7, right C5-C6, left C6-C7 and left C5-C6 facet joints. Aspirationwas negative for blood or CSF. Then 0.3 mL preservative-free Decadron was injected into each of the4 cervical facet joints. The needle was removed after each cervical facet joint injection. The patient tolerated procedure well without difficulty. The patient's neck was cleansed and bandage appliedto needle insertion site. Disposition After appropriate monitoring and recovery time, the patient was discharged home in stable condition. Standard discharge instructions were given to the patient. The patient will be followed up at the clinic per schedule. Thank you for asking me to participate in the care of this patient. Job ID/VF Job ID: [id number] INER MILL OPERATOR documented in this encounter Plan of Treatment Not on file documented as of this encounter Visit Diagnoses Diagnosis Bulge of cervical disc without myelopathy- Primary Facet arthropathy, cervical Neural foraminal stenosis of cervical spine Radiculopathy, cervical Brachial neuritis or radiculitis nos documented in this encounter Administered Medications Inactive Administered Medications - up to 3 most recent administrations Medication Order MAR Action Action Date Dose Rate Site LORazepam (ATIVAN) tablet 1 mg 1 mg, oral, Once, On Sun09/14/21 at 0945, For 1 dose Given 09/14/2021 9:06 AM STRAINER MILL OPERATOR 1 mg documented in this encounter Historical Medications * This list may reflect changes made after this encounter. NOT IN DATABASE, PRESCRIPTION, Spark Zinc and Selenium supplement for thyroid 4 added in this encounter Care Teams Insurance Claims Assistant Relationship Specialty Start Date End Date Keyonna Armstrong PA PCP - General Nurse Practitioner 06/20/18 Gasper Ochoa MD [address] [place] [address] Consulting Physician Pain Management 08/31/21 documented as of this encounter
--- OUTSIDE RECORDS SUMMARY | 2024-07-10 23:17 | XMS_ITS | Encounter Summary ---
Author Organization [facility] Healthcare Address [address] [place] [address] Care Team Providers Care Manager Of Broadcast Content Name Role Phone Keyonna Armstrong Primary Care Provider + Gasper Ochoa MD Unavailable Reason for Referral * Diagnostic Imaging (Routine) - Closed Specialty Diagnoses / Procedures Referred By Contac t Referred To Contact Diagnoses Chronic bilateral low back pain with bilateral sciatica Procedures XR Spine Lumbar W Bending 6 or More Views Valentina Curtis NP [facility] [address] [place] [address] Phone: tel: fax: [address] [phone] Referral ID Status Reason Start Date Expiration Date Visits Re quested Visits Authorized [id number] Closed 05/22/2022 06/21/2023 1 1 Reason for Visit * Diagnostic Imaging (Routine) - Closed Specialty Diagnoses / Procedures Referred By Contac t Referred To Contact Diagnoses Chronic bilateral low back pain with bilateral sciatica Procedures XR Spine Lumbar W Bending 6 or More Views Valentina Curtis NP [facility] [address] [place] [id number] Phone: tel: fax: [address] [phone] Referral ID Status Reason Start Date Expiration Date Visits Re quested Visits Authorized [id number] Closed 05/22/2022 06/21/2023 1 1 Encounter Details Date Type Department Care Team (Latest Contact Info) Description 05/22/2022 10:44 AM CDT - 05/22/2022 11:59 PM CDT Hospital Encounter [facility] [address] [place] [address] Chronic bilateral low back pain with bilateral sciatica Discharge Disposition: Discharge to home or self [...] on file Legal Sex Female 6:41 PM BIZTALK 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 Gender Identity Not on file Sexual Orientation Not on file 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 Not on file Not [...] 5,000 Units by mouth every morning 3 cyclobenzaprine (FLEXERIL) 10 mg tablet TAKE 1 TABLET BY MOUTH THREE TIMES A DAY NEEDED FOR MUSCLE SPASM 11/27/2021 3 diclofenac sodium (VOLTAREN) 1 % gel Apply 4 g topically 4 (four) times a day 05/25/2021 4 fluticasone propionate (FLONASE) 50 mcg/actuation nasal spray SPRAY 1 SPRAY INTO EACH NOSTRIL EVERY DAY 01/03/2021 4 gabapentin (NEURONTIN) 100 mg capsule Take 1 capsule PO TID 90 capsule 05/22/2022 2 glucosamine/chond r hernadez A sod (OSTEO BI-FLEX ORAL) Take 1 tablet by mouth every morning 3 Lactobacillus acidophilus (Probiotic) 10 billion cell capsule Rx: Probiotic - Capsule 4 [place] 0.1-20 mg-mcg per tablet 04/15/2021 02 4 methocarbamoL (ROBAXIN) 750 mg tablet TAKE 1 TO 2 TABLETS BY MOUTH 3 TIMES A DAY NEEDED 04/19/2022 4 NOT IN DATABASE, PRESCRIPTION, Spark Zinc [...] WHEEZING 1 06/10/2018 4 vit A,C and A-rmukms-fvbnninr (OCUVITE with LUTEIN) 1,000 unit-200 mg-60 unit-2 mg tabletIndications :Vitamin Deficiency Prevention Take 1 tablet by mouth daily 4 documented as of this encounter Discharge Disposition Disposition Code Departure Means Destination Discharge to home or self care documented in this encounter Plan of Treatment Not on file documented as of this encounter Procedures Procedure Name Priority Date/Time Associated Diagnosis Comments XR SPINE LUMBAR W BENDING 6 OR MORE VIEWS Schedule Routine, Read Routine (OP Routine) 05/22/2022 11:04 AM CDT Chronic bilateral low back pain [...] There is preservation of vertebral body height. ??Dcwk-ix-lugecpik multilevel degenerative endplate change. ??Minp-hb-yoracyeb facet arthropathy mid through lower lumbar spine. [...] 12:24 PM - Electronically signed by ??Pepe Adan M.D. D: ??05/22/2022 12:24 PM T: Report ID: [id number] Reading Location: ??[id number] Procedure Note Pepe Adan MD - 05/22/2022 [...] VERTEBRAE: There is preservation of vertebral body height.Ouqg-hv-trdrsdkp multilevel degenerative endplate change. Vkac-cc-cjkplrde facetarthropathy mid through lower lumbar spine. This [...] 12:24 PM - Electronically signed by Pepe Adan M.D. MJ T: Report ID: [id number] Reading Location: [place] [address] Valentina Curtis USER EXPERIENCE RESEARCHER IMG XR PROCEDURES Final Res ult documented in this encounter Visit Diagnoses Diagnosis Chronic bilateral low back pain with bilateral sciatica documented in this encounter Care Teams Manager Of Broadcast Content Relationship Specialty Start Date End Date Keyonna Armstrong PA PCP - General Nurse Practitioner 06/20/18 Gasper Ochoa MD [address] [facility] [place] [address] Consulting Physician Pain Management 08/31/21 documented as of this encounter
--- OUTSIDE RECORDS SUMMARY | 2024-07-10 23:17 | XMS_ITS | Encounter Summary ---
Author Organization [facility] Address [address] [place] [address] Care Team Providers Care Petrophysical Engineer Name Role Phone Keyonna Armstrong Primary Care Provider + Gasper Ochoa MD Unavailable Reason for Visit * Reason Onset Date Comments Medication Request 03/22/2023 Encounter Details Date Type Department Care Team (Late st Contact Info) Description 03/22/2023 Telephone [facility] Family Medicine at [address] [place] [address] Mark Wheat MD [address] [place] [address] [address] [place] [address] Medication Request Social History Tobacco Use Types [...] on file Legal Sex Female 6:41 PM DICTAPHONE TRANSCRIBER Gender Identity Not on file Sexual Orientation Not on file 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 3 mL 03/22/2023 04/25/2023 documented in this encounter Miscellaneous Notes * Telephone Encounter - Mark Wheat MD - 03/22/2023 1:15 PM CDT sent * Telephone Encounter - Aries Ng - 03/22/2023 9:09 AM CDT Medication Question/Clarification Medication Name(s): Phentermine What is the question or clarification needed? Spoke with patient stated this medication made her sick and she stopped taking it, she wants to know if would prescribe alternatives like ozempic If needed, Pharmacy(s) medication(s) should be sent to: [facility]/pharmacy #[id number] - [place], [place] - [address] [place] [address] Caller???s Callback #: [phone] Additional Comments: na Does message need to be routed? Yes-Action Needed documented in this encounter Plan of Treatment Not on file documented as of this encounter Visit Diagnoses Diagnosis Metabolic syndrome- Primary Dysmetabolic Syndrome X Abnormal weight gain Class 3 severe obesity due to excess calories with serious comorbidity and body mass index (BMI) of 45.0 to 49.9 in adult (HCC) documented in this encounter Care Teams Petrophysical Engineer Relationship Specialty Start Date End Date Keyonna Armstrong PA PCP - General Nurse Practitioner 06/20/18 Gasper Ochoa MD [facility] [place] [address] Consulting Physician Pain Management 08/31/21 documented as of this encounter
--- OUTSIDE RECORDS SUMMARY | 2024-07-10 23:17 | XMS_ITS | Encounter Summary ---
Author Organization [facility] Address [address] [place] [address] Care Team Providers Care Master [employer] Name Role Phone Keyonna Armstrong Primary Care Provider + Gasper Ochoa MD Unavailable Reason for Visit * Reason Comments Weight Management Referrred by PCP for weight management Encounter Details Date Type Department Care Team (Late st Contact Info) Description 07/12/2022 8:00 AM LOSS PREVENTION AND SAFETY MANAGER Office Visit [facility] Primary Care at [address] [place] [address] Mark Wheat MD [address] [facility] [address] [place] [address] Abnormal weight gain (Primary Dx); Class 3 severe obesity due to excess calories without serious comorbidity with body mass index (BMI) of 45.0 to 49.9 in adult (HCC) Social History Tobacco Use Types Packs/Day Years [...] on file Legal Sex Female 6:41 PM LOSS PREVENTION AND SAFETY MANAGER Gender Identity Not on file Sexual Orientation Not on file 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 Not on leeann e documented as of this encounter Last Filed Vital Signs Vital Sign Reading Time Taken Comments Blood Pressure 151/105 07/12/2022 8:09 AM LOSS PREVENTION AND SAFETY MANAGER Pulse 136 07/12/2022 8:09 AM LOSS PREVENTION AND SAFETY MANAGER pulse is always ari Temperature 36.9 ??C (98.4 ??F) 07/12/2022 8 :09 AM LOSS PREVENTION AND SAFETY MANAGER Respiratory Rate 14 07/12/2022 8:09 AM LOSS PREVENTION AND SAFETY MANAGER Oxygen Saturation 96% 07/12/2022 8:0 9 AM LOSS PREVENTION AND SAFETY MANAGER Inhaled Oxygen Concentration - - Weight - - Height 165.1 cm (5' 5) 07/12/2022 8:09 AM LOSS PREVENTION AND SAFETY MANAGER Body Mass Index - - documented in this encounter Ordered Prescriptions Prescription Sig Dispense Quantity Refills Last Filled Start Date End Date phentermine 15 mg capsuleIndications :Abnormal weight gain,Class 3 severe obesity due to excess calories without serious comorbidity with body mass index (BMI) of 45.0 to 49.9 in adult (HCC) Take 1 capsule (15 mg total) by mouth every morning 30 capsule 07/12/2022 3 documented in this encounter Progress Notes * Mark Wheat MD - 07/12/2022 8:00 AM CST Images from the original note were not included. Visit date: 07/12/2022 Patient ID: Veronica Evangelista is a 51 y.o. female. Chief Complaint. Chief Complaint Patient presents with Weight Management Referrred by PCP for weight management HPI. Patient is a 51 y.o. female HPI Lifestyle Medicine For Weight Management: Previous Dietary Approaches: Not on any specific Diet ZENON: yes, and is not using CPAP Mental Health: Stable Diabetes: No Previous History of Weight Loss Surgery: Gastric Bypass First Visit Date: 07/12/22 First Visit Weight: 298lb Dates: Weight (lb) Wt Readings from Last 3 Encounters: 05/22/22 124.7 kg (275 lb) 10/13/21 124.7 kg (275 lb) 10/07/21 125 kg (275 lb 9.6 oz) Total Weight Loss: First Visit Treatment: Medication: Phentermine Meal Replacement/Delivery: No Specific Diet: Not on any specific Diet Food Diary: No Activity: is walking and [place] to [id number] Past Medical History: Diagnosis Date Anxiety Arthropathy [...] Current Medications: Outpatient Encounter Medications as of 07/12/2022 Medication Sig Dispense Refill buPROPion SR (WELLBUTRIN SR) 150 mg 12 hr tablet Take 1 tablet by mouth 2 (two) times a day fluticasone propionate (FLONASE) 50 mcg/actuation nasal spray SPRAY 1 SPRAY INTO EACH NOSTRIL EVERYDAY gabapentin (NEURONTIN) 100 mg capsule TAKE 1 CAPSULE BY MOUTH THREE TIMES A DAY 90 capsule 0 glucosamine/chondr hernadez A sod (OSTEO BI-FLEX ORAL) Take 1 tablet by mouth every morning hydroCHLOROthiazide (HYDRODIURIL) 25 mg tablet Take 25 mg by mouth every morning. 0 ibuprofen (ADVIL,MOTRIN) 800 mg tablet lisinopril (PRINIVIL,ZESTRIL) 40 mg tablet Take 40 [...] NEEDED FOR WHEEZING 1 vit A,C and A-ujawxl-vjtahtic (OCUVITE with LUTEIN) 1,000 unit-200 mg-60 unit-2 mg tablet Take 1 tablet by mouth daily zolpidem (AMBIEN) 10 mg tablet TAKE 1 TABLET BY MOUTH AT BEDTIME NEEDED 1 acetaminophen-codeine (TYLENOL with CODEINE #3) 300-30 [...] morning (Patient not taking: Reported on 07/12/2022) diclofenac sodium (VOLTAREN) 1 % gel Apply 4 g topically 4 (four) times a day (Patient not taking: Reported on 08/23/2021) Lactobacillus acidophilus (Probiotic) 10 billion cell capsule [...] Reported on 10/07/2021) 20 tablet 0 phentermine 15 mg capsule Take 1 capsule (15 mg total) by mouth every morning 30 capsule 0 sennosides (Laxative Maximum Strength) 25 mg tablet 25 mg daily (Patient not taking: Reported on 08/23/2021) simethicone (MYLICON) 80 mg chewable tablet 80 mg 4 (four) times a day (Patient not taking: Reported on 09/14/2021) No facility-administered encounter medications on file as of 07/12/2022. Review of Systems: Review of Systems Constitutional: [...] not nervous/anxious and is not hyperactive. BP (!) 151/105 (BP Location: Left arm, Patient Position: Sitting) Pulse (!) 136 Comment: pulse isalways ari Temp 36.9 ??C (98.4 ??F) (Tympanic) Resp 14 Ht 165.1 cm (5' 5) SpO2 96% BMI 45.76 kg/m?? Physical Exam: Physical Exam Constitutional: He [...] this visit: Abnormal weight gain (Primary) - phentermine 15 mg capsule; Take 1 capsule (15 mg total) by mouth every morning Class 3 severe obesity due to excess calories without serious comorbidity with body mass index (BMI) of 45.0 to 49.9 in adult (HCC) - phentermine 15 mg capsule; Take 1 capsule (15 mg total) by mouth every morning Discussed/Re-emphasized Diet (90%) + Physical Activity (10%) Plan: Discussed/Re-emphasized Vegetables/Fruits Nutritional Ranking Handout: Recommended >80% caloriesfrom Whole Food Plant Based Nutrition. Discussed/Re-emphasized Processed Food (Frozen, Canned, Fast, Refined...) vs. Whole Food/Organic/Non-GMO Discussed/Re-emphasized High Fiber Diet: How to increase fibers in diet Handout being provided. Discussed/Re-emphasized [place]/Phytochemicals Diet. Disucssed/Re-emphasized [place] Diet: Grocery List and Weekly Meal Plan provided. Discussed/Re-emphasized Low Carb Diet (<50g/day) with approximately Low Calories (<1200kcal/day): Grocery List, Daily Meal Plan and Healthy Alternative being provided. Discussed/Re-emphasized Non-weight bearing exercise to complete average 7500- 49843 steps per day: Swimming or Stationary Exercise [...] dinner. 5. Increase Exertion within Daily Activities: 7500-14222 Steps/day. Avoid Elevators, escalators at public places. Increase steps in parking lots!. Office Visit based on Time: I have spent more than 40 minutes Face to Face and tlr-tbdg-qr-face activities with Patient during office visit and on the date of service. Tde-erjy-ze-face activities included Preparing to see the patient (including review of tests) I had spent total time toward Detailed Counselling including various kinds of Dietory methods, activities, medications and potential weight loss surgical options. Detailed Handouts on each topics were also printed and hand-delivered to the patient. Body mass index is 45.76 kg/m??. BMI Plan: Nutrition/Activities/Behavioral Counseling. Education Provided. Follow up 1-3 months. Mark Wheat MD PREVENTION AND SAFETY MANAGER documented in this encounter Plan of Treatment Not on file documented as of this encounter Visit Diagnoses Diagnosis Abnormal weight gain- Primary Class 3 severe obesity due to excess calories without serious comorbidity with body mass index (BMI) of 45.0 to 49.9 in adult (HCC) documented in this encounter Historical Medications * This list may reflect changes made after this encounter. Mimvey 1-0.5 mg per tablet Take 1 tablet by mouth daily 06/17/2022 08/28/2023 added in this encounter Care Teams Master [employer] Relationship Specialty Start Date End Date Keyonna Armstrong PA PCP - General Nurse Practitioner 06/20/18 Gasper Ochoa MD [address] [facility] [address] [place] [address] Consulting Physician Pain Management 08/31/21 documented as of this encounter
--- OUTSIDE RECORDS SUMMARY | 2024-07-10 23:17 | XMS_ITS | Encounter Summary ---
Author Organization [facility] Healthcare Address [address] [place] [id number] Care Team Providers Care Cement Rubber Name Role Phone Keyonna Armstrong Primary Care Provider + Gasper Ochoa MD Unavailable Reason for Referral * Procedure (Routine) - Closed Specialty Diagnoses / Procedures Referred By Contac t Referred To Contact Diagnoses Myalgia, other site Procedures Trigger Point Injection Valentina Curtis NP [address] [place] [address] [place] [address] Phone: tel: fax: [facility] Medical [facility] Referral ID Status Reason Start Date Expiration Date Visits Re quested Visits Authorized [id number] Closed 05/28/2023 06/26/2024 1 1 STRY FIRE AID * Procedure (Routine) - Closed Specialty Diagnoses / Procedures Referred By Contac t Referred To Contact Diagnoses Myalgia, other site Procedures Trigger Point Injection Valentina Curtis NP [address] [place] [address] [place] [address] Phone: tel: fax: [facility] Medical [facility] Referral ID Status Reason Start Date Expiration Date Visits Re quested Visits Authorized [id number] Closed 05/28/2023 06/26/2024 1 1 STRY FIRE AID Reason for Visit * Reason Comments Pain Encounter Details Date Type Department Care Team (Latest Contact Info) Description 05/28/2023 11:00 AM FORESTRY FIRE AID Office Visit [facility] Medical Group Orthopedics and Sports Medicine [address] [facility] [facility] [facility] [address] [place] [address] Valentina Curtis, DATA REDUCTION TECHNICIAN [address] [place] [address] Myalgia, other site (Primary Dx); Chronic bilateral low back pain without sciatica; Lumbar facet arthropathy, multilevel mild/moderate; DDD (degenerative disc disease), lumbar, moderate L3-L4, L4-L5; Anterolisthesis of lumbar spine, mild L1 on L2, L2 on L3, L3 on L4; Chronic neck pain; Spondylolisthesis of cervical region- grade 1 anterolisthesis of C3 on C4 and grade 1 retrolisthesis of C5 on C6. Grade 1 anterolisthesis of C7 on T1. 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 Not on file Not on file Not on leeann e documented as of this encounter Last Filed Vital Signs Vital Sign Reading Time Taken Comments Blood Pressure - - Pulse - - Temperature - - Respiratory Rate - - Oxygen Saturation - - Inhaled Oxygen Concentration - - Weight 127 kg (280 lb) 05/28/2023 11:16 AM FORESTRY FIRE AID Height 165.1 cm (5' 5) 05/28/2023 11:16 AM FORESTRY FIRE AID Body Mass Index 46.59 05/28/2023 11:16 AM FORESTRY FIRE AID documented in this encounter Progress Notes * Valentina Curtis, DATA REDUCTION TECHNICIAN - 05/28/2023 11:00 AM CSTAssociated Order(s): Trigger Point Injection; Trigger Point Injection Post-Procedure Diagnose(s): Myalgia, other site Reason for Appointment Chronic neck pain, chronic lumbar pain History of Present Illness: Veronica Evangelista is a 52 y.o. female arrived to the orthopedic department ambulatory, walking with no assisted devices. She is here today requesting to have cortisone trigger point injections for her chronic lumbar pain symptoms. Previous cortisone trigger point injections given February 26, 2023 for similar type lumbar pain symptoms provided up to 75% reduction of pain. She is also experiencing somechronic right trapezius pain-she was experiencing some chronic neck pain symptoms, however the neckpain has subsided and now it is predominantly right trapezius pain.. She denies any new injuries and denies any bowel or bladder dysfunction or saddle paresthesia type symptoms. She currently uses ibuprofen and gabapentin for pain reduction. Her neck pain symptoms have resolved-her last cortisone trigger point injections for her neck pain symptoms were given August 22, 2022, however she continues to have some persistent right trapezius pain symptoms which can become sharp. Her chronic neck pain, chronic lumbar pain symptoms worsened in 2020 after she fell out of a car landing on her right side on concrete. She had fluoroscopy guided cortisone injections for her lumbar pain symptoms by Dr. Jonathan Ochoa, interventional pain management in 2021. She is under the care of Dr. Mark Wheat for metabolic syndrome Previous conservative treatments and evaluations of her neck and lumbar pain symptoms include the following: She has had previous cortisone trigger point injections for her chronic lumbar pain with her last cortisone trigger point injections given 11/20/2022. She had cortisone trigger point injections for her chronic neck pain symptoms August 22, 2022. She went to [facility] April 2021 and had dry needle therapy and physical therapy which she stopped due to increasing pain. She has tried home cervical spine range of motion exercises. April 2021-- she went to Dr. Mars, chiropractor at [facility] with no reduction of pain symptoms. 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 Assessment: Diagnosis Plan 1. Myalgia, other site Trigger Point Injection Trigger Point Injection 2. Chronic bilateral low back pain without sciatica 3. Lumbar facet arthropathy, multilevel mild/moderate 4. DDD (degenerative disc disease), lumbar, moderate L3-L4, L4-L5 5. Anterolisthesis of lumbar spine, mild L1 on L2, L2 on L3, L3 on L4 6. Chronic neck pain Ambulatory referral order to Physical Therapy - 7. Spondylolisthesis of cervical region- grade 1 anterolisthesis of C3 on C4 and grade 1 retrolisthesis of C5 on C6. Grade 1 anterolisthesis of C7 on T1. Ambulatory referral order to Physical Therapy- Plan: For her chronic lumbar pain symptoms, today I gave Veronica cortisone trigger point injections using 2mL 1% lidocaine without epi and 40 mg triamcinolone each to the bilateral lower lumbar paraspinal muscle region near L4-L5, L5-S1 where there was the more focal area of hyperirritability with palpation. For her right trapezius pain symptoms-I have ordered outpatient physical therapy 2-3 times per weekfor 4-6 weeks along with dry needle therapy to be completed at [facility].Her trapezius pain symptoms may be coming from her cervical spine region. She would like to try outpatient physical therapy with a dry needle therapy to see if this will resolve her pain symptoms. She has a follow-up appointment scheduled with me on August 27, 2022. She has an appointment scheduled with Dr. Mark Wheat May 29, 2023 for metabolic syndrome. Her current BMI is 46.59. Imaging Reviewed: Lumbar spine x-ray (6 views) [...] There is preservation of vertebral body height. Kfyw-aq-azmnxbif multilevel degenerativeendplate change. Dpje-nc-diwwjfgv facet arthropathy mid through lower lumbar spine. [...] can be obtained as clinically indicated. Multilevel weld-cm-zubwpfui endplate degenerative changes with marginal spur formation. [...] indents the ventral cord. Thickened ligamentum flavum. Zluo-vc-tmcspegg spinal canal stenosis. Uncovertebral spurring and facet arthropathy with mild right and dtqd-ky-pvlreczc left neural foraminal narrowing. C7-T1: Anterolisthesis of C7 on T1 with unroofing of the disc. No significant spinal canal or neural foraminal narrowing. UPPER THORACIC: Incompletely imaged. No high-grade spinal canal stenosis. IMPRESSION: Multilevel asdq-an-ydghvumz cervical spondylotic changes as described. Spinal canal [...] Pain Procedure Details: Location: R lumbar paraspinal Local [...] the cervical paraspinal muscle or facet region. There is pain with palpation to [...] to the fifth finger, and exhibit full pathology laboratory technologist strength Perfusion: 2+ radial and ulnar pulses. [...] tablet (20 mg total), Disp: , Rfl: semaglutide (OZEMPIC) 1 mg/dose (4 mg/3 mL) pen injector injection, Inject 1 mg under the skin every 7 days, Disp: 3 mL, Rfl: 0 sennosides (Laxative Maximum Strength) 25 [...] Disp: , Rfl: 1 vit A,C and U-upqkfp-dtawlvch (OCUVITE with LUTEIN) 1,000 unit-200 mg-60 unit-2 mg tablet, Take 1 tablet by mouth daily, Disp: , Rfl: zolpidem (AMBIEN) 10 mg tablet, TAKE 1 TABLET BY MOUTH AT BEDTIME NEEDED, Disp: , Rfl: 1 gabapentin (NEURONTIN) 100 mg capsule, TAKE 1 CAPSULE BY MOUTH THREE TIMES A DAY (Patient not taking: Reported on 05/28/2023), Disp: 90 capsule, Rfl: 3 Past Medical [...] . BMI Readings from Last 1 Encounters: 05/28/23 46.59 kg/m?? Valentina Curtis NP STRY FIRE AID documented in this encounter Plan of Treatment Not on file documented as of this encounter Procedures Procedure Name Priority Date/Time Associated Diagnosis Comments OH INJECTION SINGLE/PIZZA CHEF TRIGGER POINT 1/2 MUSCLES Routine 05/28/2023 11:00 AM FORESTRY FIRE AID Myalgia, other site OH INJECTION SINGLE/PIZZA CHEF TRIGGER POINT 1/2 MUSCLES Routine 05/28/2023 11:00 AM FORESTRY FIRE AID Myalgia, other site documented in this encounter Results * OH INJECTION SINGLE/PIZZA CHEF TRIGGER POINT 1/2 MUSCLES (05/28/2023 11:00 AM FORESTRY FIRE AID) Narrative Valentina Curtis NP - 05/28/2023 11:00 AM FORESTRY FIRE AID Valentina Curtis NP ? 05/28/2023 ??9:45 PM Trigger Point Injection Performed by: Valentina [...] ??Pain Procedure Details: ??Location: ??R lumbar paraspinal ??Local anesthetic: ??Ethyl chloride spray ??Ultrasound guidance: No ?Needle size: ??22 G ??Number of muscles: ??1 or 2 ??Approach: ??Posterior ?? 4 mL lidocaine 10 mg/mL (1 %); 80 mg triamcinolone 40 mg/mL ??Patient tolerance: ??Patient tolerated the procedure well with no immediate complications us Valentina Curtis NP IN CLINIC/BEDSIDE ORDERABLE S Final Result * OH INJECTION SINGLE/PIZZA CHEF TRIGGER POINT 1/2 MUSCLES (05/28/2023 11:00 AM FORESTRY FIRE AID) Narrative Valentina Curtis NP - 05/28/2023 11:00 AM FORESTRY FIRE AID Valentina Curtis NP ? 05/28/2023 ??9:45 PM Trigger Point Injection Performed by: Valentina [...] L2, L2 on L3, L3 on L4 Chronic neck pain Cervicalgia Spondylolisthesis of cervical region- grade 1 anterolisthesis of C3 on C4 and grade 1 retrolisthesis of C5 on C6. Grade 1 anterolisthesis of C7 on T1. documented in this encounter Administered Medications Inactive Administered Medications - up to 3 most recent administrations Medication Order MAR Action Action Date Dose Rate Site lidocaine (XYLOCAINE) 10 mg/mL (1 %) injection 4 mL 4 mL, One-Time Injection, Starting on Sun05/28/23 at 1100, For 1 dose, Indications: Administration of Local AnesthesiaIndications:Administrati on of Local Anesthesia Given 05/28/2023 11:00 AM FORESTRY FIRE AID 4 mL lidocaine (XYLOCAINE) 10 mg/mL (1 %) injection 4 mL 4 mL, One-Time Injection, Starting on Sun05/28/23 at 1100, For 1 dose, Indications: Administration of Local AnesthesiaIndications:Administrati on of Local Anesthesia Given 05/28/2023 11:00 AM FORESTRY FIRE AID 4 mL triamcinolone (KENALOG) 40 mg/mL injection 80 mg 80 mg, One-Time Injection, Starting on Sun05/28/23 at 1100, For 1 doseIndications:Myalgia, other site Given 05/28/2023 11:00 AM FORESTRY FIRE AID 80 mg triamcinolone (KENALOG) 40 mg/mL injection 80 mg 80 mg, One-Time Injection, Starting on Sun05/28/23 at 1100, For 1 doseIndications:Myalgia, other site Given 05/28/2023 11:00 AM FORESTRY FIRE AID 80 mg documented in this encounter Discontinued Medications Medication Sig Discontinue Reason Start Date End Da te acetaminophen-codeine (TYLENOL with CODEINE #3) 300-30 mg per tablet 04/18/2021 023 amLODIPine (NORVASC) 5 mg tablet Take 5 mg by mouth. 09/03/2018 05/28/2023 aspirin 81 mg chewable tablet 81 mg daily 05/28/2023 cholecalciferol (VITAMIN D-3) 5,000 unit capsule Take 5,000 Units by mouth every morning 05/28/2023 cyclobenzaprine (FLEXERIL) 10 mg tablet TAKE 1 TABLET BY MOUTH THREE TIMES A DAY NEEDED FOR MUSCLE SPASM 11/27/2021 05/28/2023 glucosamine/chondr hernadez A sod (OSTEO BI-FLEX ORAL) Take 1 tablet by mouth every morning 05/28/2023 oxyCODONE (ROXICODONE) 5 mg immediate release tabletIndications:Pain Take 1 tablet (5 mg total) by mouth every 4 (four) hours as needed for pain. 08/09/2018 05/28/2023 documented as of this encounter Care Teams Cement Rubber Relationship Specialty Start Date End Date Keyonna Armstrong PA PCP - General Nurse Practitioner 06/20/18 Gasper Ochoa MD [address] [facility] [place] [address] Consulting Physician Pain Management 08/31/21 documented as of this encounter
--- OUTSIDE RECORDS SUMMARY | 2024-07-10 23:18 | XMS_ITS | Encounter Summary ---
Author Organization [facility] Address [address] [place] [address] Phone Care Team Providers Care Front Office Developer Name Role Phone Keyonna Armstrong Primary Care Provider + Encounter Details Date Type Department Care Team (Late st Contact Info) Description 08/20/2018 Orders Only [facility] Surgery [address] Advanced Medicine 8th [place] [address] [place] [address] Adri Camilo RN Social History Tobacco Use Types Packs/Day Years Used Date Smoking Tobacco: Never Smokeless Tobacco: Never Alcohol Use Standard Drinks/Week Comments No 0 (1 standard drink = 0.6 oz pur e alcohol) Comments No Sex and Gender Information Value Date Recorded Sex Assigned at Not on file Legal Sex Female 6:41 PM YARD RIGGER Gender Identity Not on file Sexual Orientation Not on file documented as of this encounter Ordered Prescriptions Prescription Sig Dispense Quantity Refills Last Filled Start Date End Date oxyCODONE-acetamin ophen (PERCOCET) 5-325 mg per tabletIndications: Pain Take 1-2 tablets by mouth every 6 (six) hours as needed for pain. 20 tablet 08/20/2018 9 documented in this encounter Plan of Treatment Not on file documented as of this encounter Visit Diagnoses Not on filedocumented in this encounter Care Teams Front Office Developer Relationship Specialty Start Date End Date Keyonna Armstrong PA PCP - General Nurse Practitioner 06/20/18 documented as of this encounter
--- OUTSIDE RECORDS SUMMARY | 2024-07-10 23:18 | XMS_ITS | Encounter Summary ---
Author Organization [facility] Address [address] [place] [address] Care Team Providers Care Floor Trader Name Role Phone Keyonna Armstrong Primary Care Provider + Encounter Details Date Type Department Care Team (Late st Contact Info) Description 06/02/2021 Telephone [facility] Group Orthopedics and Sports Medicine [address] [place] [address] [address] [place] [address] Katherine Mueller MA Social History Tobacco Use Types Packs/Day Years Used Date Smoking Tobacco: Never Smokeless Tobacco: Never Alcohol Use Standard Drinks/Week Comments No 0 (1 standard drink = 0.6 oz pur e alcohol) Comments No Sex and Gender Information Value Date Recorded Sex Assigned at Not on file Legal Sex Female 6:41 PM CYLINDER INSPECTOR Gender Identity Not on file Sexual Orientation Not on file 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 Patient instructed to contact office to schedule f/u with [facility] 5-7days after MRI. NDER INSPECTOR documented in this encounter Plan of Treatment Not on file documented as of this encounter Visit Diagnoses Not on filedocumented in this encounter Care Teams Floor Trader Relationship Specialty Start Date End Date Keyonna Armstrong PA PCP - General Nurse Practitioner 06/20/18 documented as of this encounter
--- OUTSIDE RECORDS SUMMARY | 2024-07-10 23:18 | XMS_ITS | Encounter Summary ---
Author Organization [facility] Healthcare Address [address] [place] [address] Care Team Providers Care Drafting Engineer Name Role Phone Keyonna Armstrong Primary Care Provider + Encounter Details Date Type Department Care Team (Latest Contact Info) Description 05/09/2021 12:05 AM CDT - 05/09/2021 11:59 PM CDT Hospital Encounter [facility] [place] [employer] [address] [place] [address] Discharge Disposition: Discharge to home or self care Social History Tobacco Use Types Packs/Day Years Used Date Smoking Tobacco: Never Smokeless Tobacco: Never Alcohol Use Standard Drinks/Week Comments No 0 (1 standard drink = 0.6 oz pur e alcohol) Comments No Sex and Gender Information Value Date Recorded Sex Assigned at Not on file Legal Sex Female 6:41 PM ELECTRONICS PROCESSING SUPERVISOR Gender Identity Not on file Sexual Orientation Not on file documented as of this encounter Medications at Time of Discharge buPROPion SR (WELLBUTRIN SR) 150 mg 12 hr tablet Take 1 tablet (150 mg total) by mouth 2 (two) times a day 08/25/2019 hydroCHLOROthiaz tan (HYDRODIURIL) 25 mg tablet Take 1 tablet (25 mg total) by mouth every morning 0 05/02/2018 ibuprofen (ADVIL,MOTRIN) 800 mg tablet 09/03/2018 lisinopril (PRINIVIL,ZESTRI L) 40 mg tablet Take 0.5 tablets (20 mg total) by mouth every morning 0 04/02/2018 metFORMIN (GLUCOPHAGE) 500 mg tablet Take 3 [...] tablet 1 tablet (20 mg total) 05/09/2021 venlafaxine XR (EFFEXOR-XR) 75 mg 24 hr capsule Take 3 capsules (225 mg total) by mouth daily zolpidem (AMBIEN) 10 mg tablet TAKE 1 TABLET BY MOUTH AT BEDTIME NEEDED 1 06/03/2018 acetaminophen-co deine (TYLENOL with CODEINE #3) 300-30 mg per tablet 04/18/2021 05/28/2023 amLODIPine (NORVASC) 5 mg tablet Take 5 mg by mouth. 09/03/2018 05/28/2023 cholecalciferol (VITAMIN D-3) 5,000 unit capsule Take 5,000 Units by mouth every morning 05/28/2023 ENPRESSE 50-30 (6)/75-40 (5)/125-30(10) per tablet Take 1 tablet by mouth nightly. 0 04/08/2018 05/30/2021 fluticasone propionate (FLONASE) 50 mcg/actuation nasal spray SPRAY 1 SPRAY INTO EACH NOSTRIL EVERY DAY 01/03/2021 11/27/2023 glucosamine/dominga dr satya Epps sod (OSTEO BI-FLEX ORAL) Take 1 tablet by mouth every morning 05/28/2023 [place] 0.1-20 mg-mcg per tablet 04/15/2021 08/28/2023 LORazepam (ATIVAN) 0.5 mg tablet Take 0.5 mg by mouth nightly. 05/30/2021 methocarbamol (ROBAXIN) 750 mg tablet Take 1-2 tablets by mouth. 08/11/2014 10/13/2021 ondansetron (ZOFRAN) 4 mg tablet Take 1 tablet (4 mg total) by mouth every 6 (six) hours as needed for nausea or vomiting. 15 tablet 1 08/07/2018 11/27/2023 oxyCODONE (ROXICODONE) 5 mg immediate release tabletIndication s:Pain Take 1 tablet (5 mg total) by mouth every 4 (four) hours as needed for pain. 20 tablet 08/09/2018 05/28/[address] (PROTONIX) 40 mg EC tablet Take 40 mg by mouth every morning. 3 06/11/2018 05/30/2021 VENTOLIN HFA 90 mcg/actuation inhaler TAKE 2 PUFFS BY MOUTH EVERY 4 HOURS NEEDED FOR WHEEZING 1 06/10/2018 11/27/2023 documented as of this encounter Discharge Disposition Disposition Code Departure Means Destination Discharge to home or self care documented in this encounter Plan of Treatment Not on file documented as of this encounter Procedures Procedure Name Priority Date/Time Associated Diagnosis Comments XR TRANSFER OF OUTSIDE FILMS Routine 05/09/2021 12:05 AM CDT documented in this encounter Results * XR Outside Reference (05/09/2021 12:05 AM CDT) Narrative MIGUEL A_SANTIAGO_[facility]_MHE - 05/30/2021 10:45 AM ELECTRONICS PROCESSING SUPERVISOR This order has been auto-finalized and does not contain a result. us Provider Transcribed Order IMG XR PROCEDURES Fin al Result RAD_SANTIAGO_MHB_MHE documented in this encounter Visit Diagnoses Not on filedocumented in this encounter Care Teams Drafting Engineer Relationship Specialty Start Date End Date Keyonna Armstrong PA PCP - General Nurse Practitioner 06/20/18 documented as of this encounter
--- OUTSIDE RECORDS SUMMARY | 2024-07-10 23:18 | XMS_ITS | Encounter Summary ---
Author Organization [facility] Healthcare Address [address] [place] [address] Care Team Providers Care Apparel Machinery Instructor Name Role Phone Keyonna Armstrong Primary Care Provider + Reason for Referral * MRI/CAT/PET Scan (Routine) - Closed Specialty Diagnoses / Procedures Referred By Contac t Referred To Contact Radiology Diagnoses Right cervical radiculopathy Procedures MRI Cervical Spine WO Contrast Valentina Curtis NP [facility] [address] [place] [address] Phone: tel: fax: [address] [phone] Referral ID Status Reason Start Date Expiration Date Visits Re quested Visits Authorized [id number] Closed 06/02/2021 07/02/2022 1 1 GER HEALTH Reason for Visit * MRI/CAT/PET Scan (Routine) - Closed Specialty Diagnoses / Procedures Referred By Contac t Referred To Contact Radiology Diagnoses Right cervical radiculopathy Procedures MRI Cervical Spine WO Contrast Valentina Curtis NP [address] [place] [address] [address] [place] [address] Phone: tel: fax: [address] [phone] Referral ID Status Reason Start Date Expiration Date Visits Re quested Visits Authorized [id number] Closed 06/02/2021 07/02/2022 1 1 Encounter Details Date Type Department Care Team (Latest Contact Info) Description 07/21/2021 10:50 AM MANAGER HEALTH - 07/21/2021 11:59 PM MANAGER HEALTH Hospital Encounter [facility] [address] [place] [id number] Right cervical radiculopathy Discharge Disposition: Discharge to home or self care Social History Tobacco Use Types Packs/Day Years Used Date Smoking Tobacco: Never Smokeless Tobacco: Never Alcohol Use Standard Drinks/Week Comments No 0 (1 standard drink = 0.6 oz pur e alcohol) Comments No Sex and Gender Information Value Date Recorded Sex Assigned at Not on file Legal Sex Female 6:41 PM MANAGER HEALTH Gender Identity Not on file Sexual Orientation Not on file 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 MRI CERVICAL SPINE WO CONTRAST REASON FOR STUDY: ?? Neck pain, initial exam, pain ?? Neck pain radiates down right arm 4 months. Fall on right side 6 months ago. ?? TECHNIQUE: Sagittal and Axial imaging includes T1, T2, STIR and gradient echo sequences. ? COMPARISON: ?? Cervical spine radiographs dated 06/02/2021. FINDINGS: ALIGNMENT: ?? Straightening of the cervical lordosis. ??There is grade 1 anterolisthesis of C3 on C4 and grade 1 retrolisthesis of C5 on C6. ??Grade 1 anterolisthesis of C7 on T1. VERTEBRAE: ?? There is no acute compression fracture in the cervical spine. ??In the setting of trauma a CT has higher sensitivity for subtle spinal fractures and can be obtained as clinically indicated. ??Multilevel ivsj-rg-jzsactbw endplate degenerative changes with marginal spur formation. ??Multilevel bilateral facet arthropathy including on the left at C3-C4 where there are edematous changes in the posterior elements suggestive of synovitis. DISCS: ?? Moderate disc desiccation and height loss at C5-C6 and to lesser extent remainder of the cervical levels. HARDWARE: ?? None in the spine. CORD: ?? No discrete T2 hyperintense cord signal alteration is reproduced on 2 separate sequences. INDIVIDUAL LEVELS: C2-C3: Disc bulge without significant spinal canal or neural foraminal narrowing. ??Bilateral facet arthropathy. C3-C4: Anterolisthesis of C3 on C4 with unroofing of the disc. ??There is thickened ligamentum flavum. ??No significant spinal canal stenosis. ?? Uncovertebral spurring and facet arthropathy with moderate right and mild left neural foraminal narrowing. C4-C5: Disc bulge without significant spinal canal stenosis. ??Uncovertebral spurring and facet arthropathy with mild to moderate bilateral neural foraminal narrowing. C5-C6: Posterior disc osteophyte complex and a superimposed inferior disc extrusion to the upper margin of C6 vertebral body flattens the ventral cord. ?? Thickened ligamentum flavum. ??Moderate spinal canal stenosis. ??Uncovertebral spurring and facet arthropathy with moderate right and left neural foraminal narrowing. C6-C7: Posterior disc osteophyte complex indents the ventral cord. ??Thickened ligamentum flavum. ??Adem-rg-fuuokkni spinal canal stenosis. ??Uncovertebral spurring and facet arthropathy with mild right and eumu-tl-yyboxjbq left neural foraminal narrowing. C7-T1: Anterolisthesis of C7 on T1 with unroofing of the disc. ??No significant spinal canal or neural foraminal narrowing. UPPER THORACIC: ?? Incompletely imaged. No high-grade spinal canal stenosis. IMPRESSION: ?? 1. ?? Multilevel ufzp-bx-rmhcknqi cervical spondylotic changes as described. ?? Spinal canal narrowing is most noticeable at C5-C6 and C6-C7. 2. ?? Varying degrees of bilateral neural foraminal stenosis and additional findings as discussed above. THIS IS AN ELECTRONICALLY VERIFIED FINAL REPORT 07/21/2021 1:53 PM - Electronically signed by ??Major Ruano D.O. AP: JAMIE D: ??07/21/2021 1:53 PM T: ??07/21/2021 1:53 PM Report ID: [id number] Reading Location: ??[id number] Procedure Note Major Ruano DO - 07/21/2021 EXAM DESCRIPTION: MRI CERVICAL SPINE WO CONTRAST REASON FOR STUDY: Neck pain, initial exam, pain Neck pain radiates down right arm 4 months. Fall on right side 6 monthsago. TECHNIQUE: Sagittal and Axial imaging includes T1, T2, STIR and gradientecho sequences. COMPARISON: Cervical spine radiographs dated 06/02/2021. FINDINGS: ALIGNMENT: Straightening of the cervical lordosis. There is grade 1 anterolisthesis of C3 on C4 and grade 1 retrolisthesis of C5 on C6. Grade1 anterolisthesis of C7 on T1. VERTEBRAE: There is no acute compression fracture in the cervical spine.In the setting of trauma a CT has higher sensitivity for subtle spinalfractures and can be obtained as clinically indicated. Multilevel mgfv-cg-eghauoys endplate degenerative changes with marginal spur formation. Multilevel bilateral facet arthropathy including on the left at C3-C4 where there are edematous changes in the posterior elements suggestive of synovitis. DISCS: Moderate disc desiccation and height loss at C5-C6 and to lesser extent remainder of the cervical levels. HARDWARE: None in the spine. CORD: No discrete T2 hyperintense cord signal alteration is reproducedon 2 separate sequences. INDIVIDUAL LEVELS: C2-C3: Disc bulge without significant spinal canal or neural foraminal narrowing. Bilateral facet arthropathy. C3-C4: Anterolisthesis of C3 on C4 with unroofing of the disc. There is thickened ligamentum flavum. No significant spinal canal stenosis. Uncovertebral spurring and facet arthropathy with moderate right and mildleft neural foraminal narrowing. C4-C5: Disc bulge without significant spinal canal stenosis.Uncovertebral spurring and facet arthropathy with mild to moderate bilateral neural foraminal narrowing. C5-C6: Posterior disc osteophyte complex and a superimposed inferior disc extrusion to the upper margin of C6 vertebral body flattens the ventralcord. Thickened ligamentum flavum. Moderate spinal canal stenosis.Uncovertebral spurring and facet arthropathy with moderate right and left neuralforaminal narrowing. C6-C7: Posterior disc osteophyte complex indents the ventral cord.Thickened ligamentum flavum. Omfx-cj-sjcdgsnj spinal canal stenosis. Uncovertebral spurring and facet arthropathy with mild right and ztdj-jm-gwmhrdoy left neural foraminal narrowing. C7-T1: Anterolisthesis of C7 on T1 with unroofing of the disc. Nosignificant spinal canal or neural foraminal narrowing. UPPER THORACIC: Incompletely imaged. No high-grade spinal canalstenosis. IMPRESSION: 1. Multilevel rtys-ir-fanawahg cervical spondylotic changes asdescribed. Spinal canal narrowing is most noticeable at C5-C6 and C6-C7. 2. Varying degrees of bilateral neural foraminal stenosis and additional findings as discussed above. THIS IS AN ELECTRONICALLY VERIFIED FINAL REPORT 07/21/2021 1:53 PM - Electronically signed by Major Ruano D.O. AP: JAMIE Report ID: [id number] Reading Location: [place] [address] Valentina Curtis SHEET TAKER IMG MRI PROCEDURES Final Re sult documented in this encounter Visit Diagnoses Diagnosis Right cervical radiculopathy documented in this encounter Care Teams Apparel Machinery Instructor Relationship Specialty Start Date End Date Keyonna Armstrong PA PCP - General Nurse Practitioner 06/20/18 documented as of this encounter
--- OUTSIDE RECORDS SUMMARY | 2024-07-10 23:18 | XMS_ITS | Encounter Summary ---
Author Organization [facility] Healthcare Address [address] [place] [address] Care Team Providers Care Seat Covers Trimmer Name Role Phone Keyonna Armstrong Primary Care Provider + Reason for Referral * Diagnostic Imaging (Routine) - Closed Specialty Diagnoses / Procedures Referred By Contac t Referred To Contact Diagnoses Right shoulder pain, unspecified chronicity Procedures XR Shoulder Right 2 or More Views Pepe Zepeda MD [address] [place] [address] [address] [place] [address] Phone: tel: fax: [address] [phone] Referral ID Status Reason Start Date Expiration Date Visits Re quested Visits Authorized [id number] Closed 05/30/2021 06/29/2022 1 1 T MANAGER Reason for Visit * Diagnostic Imaging (Routine) - Closed Specialty Diagnoses / Procedures Referred By Contac t Referred To Contact Diagnoses Right shoulder pain, unspecified chronicity Procedures XR Shoulder Right 2 or More Views Pepe Zepeda MD [address] [place] [address] DR [address] [place] [address] Phone: tel: fax: [address] [phone] Referral ID Status Reason Start Date Expiration Date Visits Re quested Visits Authorized [id number] Closed 05/30/2021 06/29/2022 1 1 Encounter Details Date Type Department Care Team (Latest Contact Info) Description 05/30/2021 11:10 AM EVENT MANAGER - 05/30/2021 11:59 PM EVENT MANAGER Hospital Encounter [facility] [address] [place] [address] Right shoulder pain, unspecified chronicity Discharge Disposition: Discharge to home or self care Social History Tobacco Use Types Packs/Day Years Used Date Smoking Tobacco: Never Smokeless Tobacco: Never Alcohol Use Standard Drinks/Week Comments No 0 (1 standard drink = 0.6 oz pur e alcohol) Comments No Sex and Gender Information Value Date Recorded Sex Assigned at Not on file Legal Sex Female 6:41 PM EVENT MANAGER Gender Identity Not on file Sexual [...] Name Priority Date/Time Associated Diagnosis Comments XR SHOULDER RIGHT 2 OR MORE VIEWS Schedule Routine, Read Routine (OP Routine) 05/30/2021 11:16 AM EVENT MANAGER Right shoulder pain, unspecified chronicity documented in this encounter Results * XR Shoulder Right 2 or More Views (05/30/2021 11:16 AM EVENT MANAGER) Anatomical Region Laterality Modality Upper Extremities, Shoulder Right Comp uted Radiography 06/01/2021 9:16 AM EVENT MANAGER Narrative 06/01/2021 9:17 AM EVENT MANAGER EXAM DESCRIPTION: ?? XR SHOULDER RIGHT 2 OR MORE VIEWS REASON FOR STUDY: ?? pain ?? COMPARISON: ?? Right shoulder radiograph FINDINGS: Left there is no evidence of fracture, dislocation or tumor. ??There is evidence of mild degenerative changes at the acromioclavicular joint and mildly curved acromion. ??There is no evidence of malignancy. ??There is no evidence of loose body. IMPRESSION: ?? 1. ??Evidence of mild degenerative changes about the right shoulder THIS IS AN ELECTRONICALLY VERIFIED FINAL REPORT 06/01/2021 9:17 AM - Electronically signed by Pepe Zepeda D: ??06/01/2021 9:17 AM T: Report ID: [id number] Reading Location: ??[place] [address] Procedure Note Pepe Zepeda MD - 06/01/2021 EXAM DESCRIPTION: XR SHOULDER RIGHT 2 OR MORE VIEWS REASON FOR STUDY: pain COMPARISON: Right shoulder radiograph FINDINGS: Left there is no evidence of fracture, dislocation or tumor. There is evidence of mild degenerative changes at the acromioclavicular joint and mildly curved acromion. There is no evidence of malignancy. There is no evidence of loose body. IMPRESSION: 1. Evidence of mild degenerative changes about the right shoulder THIS IS AN ELECTRONICALLY VERIFIED FINAL REPORT 06/01/2021 9:17 AM - Electronically signed by Pepe Zepeda T: Report ID: [id number] Reading Location: [place] [address] Pepe Zepeda MD IMG XR PROCEDURES Final Result documented in this encounter Visit Diagnoses Diagnosis Right shoulder pain, unspecified chronicity documented in this encounter Care Teams Seat Covers Trimmer Relationship Specialty Start Date End Date Keyonna Armstrong PA PCP - General Nurse Practitioner 06/20/18 documented as of this encounter
--- OUTSIDE RECORDS SUMMARY | 2024-07-10 23:18 | XMS_ITS | Encounter Summary ---
Author Organization [facility] Address [address] [place] [address] Care Team Providers Care Bookkeeper Name Role Phone Keyonna Armstrong Primary Care Provider + Encounter Details Date Type Department Care Team (Late st Contact Info) Description 07/25/2021 Telephone [facility] Orthopedics and Sports Medicine [address] [place] [address] [address] [place] [address] Kathernie Mueller MA Social History Tobacco Use Types Packs/Day Years Used Date Smoking Tobacco: Never Smokeless Tobacco: Never Alcohol Use Standard Drinks/Week Comments No 0 (1 standard drink = 0.6 oz pur e alcohol) Comments No Sex and Gender Information Value Date Recorded Sex Assigned at Not on file Legal Sex Female 6:41 PM HOME DEMONSTRATION AGENT Gender Identity Not on file Sexual Orientation Not on file 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 Not on file Not on leeann e documented as of this encounter Miscellaneous Notes * Telephone Encounter - Katherine Mueller MA - 07/25/2021 9:38 AM CST CMk called patient with MRI CSP results and is referring patient to PM to see Dr Ochoa for disc protrusion and right cervical radiculopathy DEMONSTRATION AGENT documented in this encounter Plan of Treatment Not on file documented as of this encounter Visit Diagnoses Diagnosis Right cervical radiculopathy- Primary Protrusion of cervical intervertebral disc 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 cervical vertebra documented in this encounter Care Teams Bookkeeper Relationship Specialty Start Date End Date Keyonna Armstrong PA PCP - General Nurse Practitioner 06/20/18 documented as of this encounter
--- OUTSIDE RECORDS SUMMARY | 2024-07-10 23:18 | XMS_ITS | Encounter Summary ---
Author Organization [facility] Address [address] [place] [address] Care Team Providers Care Finisher Fine Diamond Dies Name Role Phone Keyonna Armstrong Primary Care Provider + Gasper Ochoa MD Unavailable Gasper Ochoa MD Unavailable Encounter Details Date Type Department Care Team (Late st Contact Info) Description 06/22/2021 Telephone [facility] Orthopedics and Sports Medicine [address] [facility] [address] [place] [address] Valentina Curtis NP [address] [facility] [address] [place] [address] Social History Tobacco Use Types Packs/Day Years [...] on file Legal Sex Female 6:41 PM WARP DYEING VAT TENDER Gender Identity Not on file Sexual Orientation Not on file 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 Not on file Not on leeann e documented as of this encounter Miscellaneous Notes * Telephone Encounter - Dodie Garcia - 10/04/2021 3:14 PM CDT Error documented in this encounter Plan of Treatment Not on file documented as of this encounter Visit Diagnoses Not on filedocumented in this encounter Care Teams Finisher Fine Diamond Dies Relationship Specialty Start Date End Date Keyonna Armstrong PA PCP - General Nurse Practitioner 06/20/18 Gasper Ochoa MD [address] [facility] [address] [facility] [place] [address] Consulting Physician Pain Management 08/31/21 Gasper Ochoa MD [address] [facility] [address] [facility] [place] [address] Consulting Physician Pain Management 08/31/21 08/31/21 documented as of this encounter
--- OUTSIDE RECORDS SUMMARY | 2024-07-10 23:18 | XMS_ITS | Encounter Summary ---
Author Organization [facility] Address [address] [facility] [address] [place] [address] Care Team Providers Care Vice President Quality Assurance Name Role Phone Keyonna Armstrong Primary Care Provider + Reason for Referral * Diagnostic Imaging (Routine) - Closed Specialty Diagnoses / Procedures Referred By Contac t Referred To Contact Diagnoses Right shoulder pain, unspecified chronicity Procedures XR Shoulder Right 2 or More Views Pepe Zepeda MD [address] [place] [address] DR [address] [place] [id number] Phone: tel: fax: [address] [phone] Referral ID Status Reason Start Date Expiration Date Visits Re quested Visits Authorized [id number] Closed 05/30/2021 06/29/2022 1 1 RVISOR CHEMICAL Reason for Visit * Reason Comments Pain Encounter Details Date Type Department Care Team (Late st Contact Info) Description 05/30/2021 11:00 AM SUPERVISOR CHEMICAL Office Visit [facility] Orthopedics and Sports Medicine [address] [place] [phone] Pepe Zepeda MD [address] [place] [address] DR [address] [place] [id number] Right shoulder pain, unspecified chronicity (Primary Dx) Social History Tobacco Use Types Packs/Day Years Used Date Smoking Tobacco: Never Smokeless Tobacco: Never Alcohol Use Standard Drinks/Week Comments No 0 (1 standard drink = 0.6 oz pur e alcohol) Comments No Sex and Gender Information Value Date Recorded Sex Assigned at Not on file Legal Sex Female 6:41 PM SUPERVISOR CHEMICAL Gender Identity Not on file Sexual Orientation Not on file documented as of this encounter Last Filed Vital Signs Vital Sign Reading Time Taken Comments Blood Pressure - - Pulse - - Temperature - - Respiratory Rate - - Oxygen Saturation - - Inhaled Oxygen Concentration - - Weight 122.5 kg (270 lb) 05/30/2021 11:05 AM SUPERVISOR CHEMICAL Height 165.1 cm (5' 5) 05/30/2021 11:05 AM SUPERVISOR CHEMICAL Body Mass Index 44.93 05/30/2021 11:05 AM SUPERVISOR CHEMICAL documented in this encounter Progress Notes * Pepe Zepeda MD - 05/30/2021 11:00 AM CST Patient: Veronica Evangelista : 1970 AGE: 50 y.o. Visit Date: 05/30/2021 Physician: Pepe Zepeda MD Assessments: 1. Patient is a 50 yo female who presents with right neck and right upper extremity pain with numbness and tingling to the thumb and index finger concerning for cervical radiculopathy and associated trigger points 2. 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 3. The patient is right-hand dominant History of Present Illness: The patient is a 50-year-old young lady that reports that she has been having right neck as well asright upper extremity pain all the way to the hand including the thumb and index finger over the past 2 months. She reports that she had a fall in February of 2021 and she also lifted her grandson but there is no overt accident or injury. The patient was seen at outside urgent cares twice for this issue. The pain is sharp and aching and she is having numbness and tingling to the thumb as well as the index finger. The pain is better with her arm placed over her head as well as rest and sleep and worse with activity. She has seen her chiropractor for treatment as well. Review of Systems and Examination: Right shoulder exam On examination, the patient is alert and oriented times three. Hearing is intact to spoken word with mood and affect within normal limits. There is positive evidence of cervical radiculopathy. The skin is intact across the upper extremity with no clinical signs of infection. No overt evidence of muscle atrophy. The upper extremity is warm and well perfused. Sensation is intact in the median, ulnar, radial, and axillary distribution but she reports dysesthesias within the thumb and index finger.The acromioclavicular joint is stable and is nontender. 170 degrees of forward flexion actively andpassively. 60 degrees of external rotation actively and passively. T12 level of internal rotation. Jobes supraspinatus strength testing is 5 of 5 strength. 5 of 5 strength with external rotation. There is a normal Belly press examination. The patient has notable trigger point areas palpated along the paracervical and posterior rhomboid region. Data Review: I personally reviewed the patient's radiology images of the shoulder from the outside provider on 05/09/21 and my personal review shows no evidence of fracture dislocation or tumor. There is presenceof degenerative changes that are mild. Plan: At this point the patient has a compelling clinical history of cervical radiculopathy as she reports that the pain is better when she places her arm above her head and she is having numbness and tingling to the thumb and index finger in addition to radiating pain. The patient has multiple trigger points about the paracervical and posterior rhomboid region. Would like to refer her to a cervical senior loss control specialist for consideration of injections and further evaluation and management as cervical spine evaluation and management is out of my scope of practice. Based on the patient's clinical historyexamination and imaging I do not think the patient is indicated for shoulder surgical intervention from the orthopedic surgery perspective. I personally and independently performed interpretation of a test performed by another provider. RVISOR CHEMICAL documented in this encounter Plan of Treatment Not on file documented as of this encounter Results * XR Shoulder Right 2 or More Views (05/30/2021 11:16 AM SUPERVISOR CHEMICAL) Anatomical Region Laterality Modality Upper Extremities, Shoulder Right Comp uted Radiography 06/01/2021 9:16 AM SUPERVISOR CHEMICAL Narrative 06/01/2021 9:17 AM SUPERVISOR CHEMICAL EXAM DESCRIPTION: ?? XR SHOULDER RIGHT 2 [...] D: ??06/01/2021 9:17 AM T: Report ID: [id number] Reading Location: ??[place] [address] Procedure Note Pepe Zepeda MD - 06/01/2021 [...] signed by Pepe Zepeda T: Report ID: [id number] Reading Location: [place] [address] Pepe Zepeda MD IMG XR PROCEDURES Final Result documented in this encounter Visit Diagnoses Diagnosis Right shoulder pain, unspecified chronicity- Primary Right shoulder pain, unspecified chronicity documented in this encounter Discontinued Medications Medication Sig Discontinue Reason Start Date End Da te ENPRESSE 50-30 (6)/75-40 (5)/125-30(10) per tablet Take 1 tablet by mouth nightly. 04/08/2018 05/30/2021 LORazepam (ATIVAN) 0.5 mg tablet Take 0.5 mg by mouth nightly. 05/30/[address] (PROTONIX) 40 mg EC tablet Take 40 mg by mouth every morning. 06/11/2018 05/30/2021 documented as of this encounter Historical Medications * This list may reflect changes made after this encounter. pantoprazole DR (PROTONIX) 20 mg EC tablet 1 tablet (20 mg total) 05/09/2021 LORazepam (ATIVAN) 1 mg tablet Take 0.5 tablets (0.5 mg total) by mouth every 8 (eight) hours as needed for anxiety 05/25/2021 buPROPion SR (WELLBUTRIN SR) 150 mg 12 hr tablet Take 1 tablet (150 mg total) by mouth 2 (two) times a day 08/25/2019 sennosides (Laxative Maximum Strength) 25 mg tablet 25 mg daily Larissia 0.1-20 mg-mcg per tablet 04/15/2021 02 4 acetaminophen-cod eine (TYLENOL with CODEINE #3) 300-30 mg per tablet 04/18/2021 3 fluticasone propionate (FLONASE) 50 mcg/actuation nasal spray SPRAY 1 SPRAY INTO EACH NOSTRIL EVERY DAY 01/03/2021 4 diclofenac sodium (VOLTAREN) 1 % gel Apply 4 g topically 4 (four) times a day 05/25/2021 4 simethicone (MYLICON) 80 mg chewable tablet 1 tablet (80 mg total) 4 (four) times a day 4 Lactobacillus acidophilus (Probiotic) 10 billion cell capsule Rx: Probiotic - Capsule 4 aspirin 81 mg chewable tablet 81 mg daily 05/28/20 2 3 added in this encounter Care Teams Vice President Quality Assurance Relationship Specialty Start Date End Date Keyonna Armstrong PA PCP - General Nurse Practitioner 06/20/18 documented as of this encounter
--- OUTSIDE RECORDS SUMMARY | 2024-07-10 23:18 | XMS_ITS | Encounter Summary ---
Author Organization [facility] Address [address] [facility] [address] [place] [address] Care Team Providers Care Casino Change Attendant Name Role Phone Keyonna Armstrong Primary Care Provider + Encounter Details Date Type Department Care Team (Late st Contact Info) Description 07/21/2021 Telephone [facility] Orthopedics and Sports Medicine [address] [place] [address] [address] [place] [phone] [place] [address] [place] [address] [address] [place] [address] Social History Tobacco Use Types Packs/Day Years Used Date Smoking Tobacco: Never Smokeless Tobacco: Never Alcohol Use Standard Drinks/Week Comments No 0 (1 standard drink = 0.6 oz pur e alcohol) Comments No Sex and Gender Information Value Date Recorded Sex Assigned at Not on file Legal Sex Female 6:41 PM CRAFT ARTIST Gender Identity Not on file Sexual Orientation Not on file 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 I left a message with Veronica to return my call at the orthopedic clinic. T ARTIST documented in this encounter Plan of Treatment Not on file documented as of this encounter Visit Diagnoses Not on filedocumented in this encounter Care Teams Casino Change Attendant Relationship Specialty Start Date End Date Keyonna Armstrong PA PCP - General Nurse Practitioner 06/20/18 documented as of this encounter
--- OUTSIDE RECORDS SUMMARY | 2024-07-10 23:18 | XMS_ITS | Encounter Summary ---
Author Organization 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 Spondylolisthesis of cervical region Valentina Curtis NP [facility] [address] [place] [address] Phone: tel: fax: Flor Kincaid MD [address] [place] [address] [address] K[address] [facility] [place] [address] Phone: tel: fax: Referral ID Status Reason Start Date Expiration Date V isits Requested Visits Authorized [id number] Closed Specialty Services Required 08/01/2021 08/31/2022 1 1 Question Answer Please select the performing region: [facility] [[id number]] To provider: FLOR KINCAID [[id number]] # of visits: 1 Comments Evaluate and treat UNTS PAYABLE ACCOUNTANT Reason for Visit * Reason Onset Date Comments Referral 08/01/2021 Encounter Details Date Type Department Care Team (Late st Contact Info) Description 08/01/[address] 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 Hilario so was just seeing if you can followup with them; would like a call back to see what is going on UNTS PAYABLE ACCOUNTANT documented in this encounter Plan of Treatment Scheduled Referrals Name Type Priority Associated Diagnoses Orde r Schedule Ambulatory referral to Pain Management Outpatient Referral Routine Right cervical radiculopathy Protrusion of cervical intervertebral disc 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 Spondylolisthesis of cervical region Expected: 08/15/2021 (Approximate), Expires: 08/01/2022 documented as of this encounter Visit Diagnoses Diagnosis Right cervical radiculopathy- Primary Protrusion of cervical intervertebral disc 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 Spondylolisthesis of cervical region documented in this encounter Care Teams Plastic Mould Maker Relationship Specialty Start Date End Date Keyonna Armstrong PA PCP - General Nurse Practitioner 06/20/18 Flor Kincaid MD [address] [facility] [address] [facility] [place] [address] Consulting Physician Pain Management 08/31/21 Flor Kincaid MD [address] [facility] [address] [facility] [place] [address] Consulting Physician Pain Management 08/31/21 08/31/21 documented as of this encounter
--- OUTSIDE RECORDS SUMMARY | 2024-07-10 23:18 | XMS_ITS | Encounter Summary ---
Author Organization [facility] Address [address] [place] [address] Phone Care Team Providers Care Loss Prevention Manager Name Role Phone Keyonna Armstrong Primary Care Provider + Encounter Details Date Type Department Care Team (Latest Contact Info) Description 09/05/2018 8:00 AM SALES REPRESENTATIVE GIRLS' APPAREL Office Visit [facility] Medical Office Building [address] [place] [address] Elli Hernandez MD PhD [address] [place] [address] Cholecystitis (Primary Dx) Social History Tobacco Use Types Packs/Day Years Used Date Smoking Tobacco: Never Smokeless Tobacco: Never Alcohol Use Standard Drinks/Week Comments No 0 (1 standard drink = 0.6 oz pur e alcohol) Comments No Sex and Gender Information Value Date Recorded Sex Assigned at Not on file Legal Sex Female 6:41 PM SALES REPRESENTATIVE GIRLS' APPAREL Gender Identity Not on file Sexual Orientation Not on file documented as of this encounter Last Filed Vital Signs Vital Sign Reading Time Taken Comments Blood Pressure 151/96 09/05/2018 7:56 AM SALES REPRESENTATIVE GIRLS' APPAREL Pulse 108 09/05/2018 7:56 AM SALES REPRESENTATIVE GIRLS' APPAREL Temperature 36.8 ??C (98.2 ??F) 09/05/2018 7:56 AM CS T Respiratory Rate - - Oxygen Saturation - - Inhaled Oxygen Concentration - - Weight 128.3 kg (282 lb 12.8 oz) 09/05/2018 7:56 AM SALES REPRESENTATIVE GIRLS' APPAREL Height 165.1 cm (5' 5) 09/05/2018 7:56 AM SALES REPRESENTATIVE GIRLS' APPAREL Body Mass Index 47.06 09/05/2018 7:56 AM SALES REPRESENTATIVE GIRLS' APPAREL documented in this encounter Progress Notes * Elli Hernandez MD PhD - 09/05/2018 8:00 AM CST Images from the original note were not included. [facility] Minimally Invasive Surgery Established Patient REASON FOR CONSULTATION: s/p lap uriah HISTORY OF PRESENT ILLNESS: The patient is a 48 y.o. female presenting with gallstone pancreatitis s/p lap uriah 08/07/18. She is overall doing well. She is having some left-sided abdominal pain whichis unrelated to eating. She says it is a stabbing pain, 8/10, that occurs irregularly. She has beentaking 800 mg of ibuprofen and 1500 mg of tylenol when she has the pain. The frequency of the pain has been decreasing with time. She and her had multiple questions about their daughter's hernia (their daughter is not with them today). CURRENT MEDICAL CONDITIONS: Patient Active Problem List Diagnosis ??? Class 3 severe obesity with serious comorbidity in adult (CMS/HCC) ??? Calculus of gallbladder with acute cholecystitis without obstruction ??? HTN (hypertension) ??? PCOS (polycystic ovarian syndrome) ??? Depression ??? Cholecystitis PAST MEDICAL HISTORY: She has a past medical history of Anxiety; Cholelithiasis; Depression; Hypertension; Motion sickness; ZENON (obstructive sleep apnea); PCOS (polycystic ovarian syndrome); PONV (postoperative nausea andvomiting); and Sleep apnea. She also has no past medical history of Acute respiratory failure requiring reintubation (CMS/HCC); Awareness under anesthesia; Cardiac complication; Delayed emergence from general anesthesia; Hard to intubate; Hematoma; Malignant hyperthermia; Pneumothorax; Postoperative delirium; or Pseudocholinesterase deficiency. PAST SURGICAL HISTORY: She has a past surgical history that includes Maude-en-y procedure (09/2003) and Ureteral stent placement (Left). MEDICATIONS: She has a current medication list which includes the following prescription(s): amlodipine, cholecalciferol, enpresse, glucosamine/chondr hernadez a sod, hydrochlorothiazide, ibuprofen, lisinopril, lorazepam, metformin, methocarbamol, metoprolol xl, multivitamin, oxycodone, pantoprazole dr, venlafaxine xr, ventolin hfa, zolpidem, and ondansetron. ALLERGIES: She has No Known Allergies. FAMILY HISTORY: Her family history includes Diabetes in her father; Hypertension in her father and mother; Other inher brother and mother; Thyroid cancer in her sister; cirrhosis in her brother. SOCIAL HISTORY: She reports that she has never smoked. She has never used smokeless tobacco. She reports that she does not drink alcohol or use drugs. REVIEW OF SYSTEMS: GENERAL: Denies fevers, chills or malaise. PHYSICAL EXAMINATION: Ht: 165.1 cm (5' 5) Wt: 128.3 kg (282 lb 12.8 oz) BMI: Body mass index is 47.06 kg/m??. BP 151/96 (BP Location: Right arm, Patient Position: Sitting) Pulse 108 Temp 36.8 ??C (98.2 ??F) (Oral) Ht 165.1 cm (5' 5) Wt 128.3 kg (282 lb 12.8 oz) BMI 47.06 kg/m?? (she is chronically tachycardic) GENERAL: Morbidly obese individual in no acute distress. NEURO: Alert and oriented x3, mood and affect appropriate. HEENT: Pupils equal. EOMs grossly normal. LUNGS: Breathing comfortably on room air. No audible wheezes. SKIN: Smooth and dry. No rash. ABDOMEN: Incisions well healed. Soft, non-tender, no masses. No hepatomegaly, no splenomegaly. ASSESSMENT AND PLAN: 1. Ms. Evangelista is doing fine with regard to her cholecystectomy. I am not sure exactly what is causing her left-sided pain (it is just to the left of midline, in between the xiphoid and the umbilicus). I advised her to stop taking ibuprofen due to her h/o RYGB. I advised her to take only up to 4000mg of tylenol daily. Her pain could potentially be due to a marginal ulcer, so I advised her to start taking her protonix twice a day. I told her to let me know if that pain gets worse so we can schedule her for endoscopy. It is reassuring that her pain is getting better over time. 2. I have advised them to make an appointment with Dr. Ivan for management of their daughter's hernia. 3. The patient will follow up in 12 months for her next visit for bariatric follow-up. Veronica Evangelista demonstrates understanding and is amenable to the outlined plan. There are no barriers to education today. The patient is encouraged to call the clinic with any questions or concerns. Elli Hernandez MD PhD S REPRESENTATIVE GIRLS' APPAREL documented in this encounter Plan of Treatment Not on file documented as of this encounter Visit Diagnoses Diagnosis Cholecystitis- Primary Cholecystitis, unspecified documented in this encounter Discontinued Medications Medication Sig Discontinue Reason Start Date End Da te oxyCODONE-acetaminophen (PERCOCET) 5-325 mg per tabletIndications:Pain Take 1-2 tablets by mouth every 6 (six) hours as needed for pain. Duplicate order 08/20/2018 09/05/2018 documented as of this encounter Historical Medications * This list may reflect changes made after this encounter. ibuprofen (ADVIL,MOTRIN) 800 mg tablet 09/03/2018 methocarbamol (ROBAXIN) 750 mg tablet Take 1-2 tablets by mouth. 08/11/2014 10/13/2021 amLODIPine (NORVASC) 5 mg tablet Take 5 mg by mouth. 09/03/2018 05/28/2023 added in this encounter Care Teams Loss Prevention Manager Relationship Specialty Start Date End Date Keyonna Armstrong PA PCP - General Nurse Practitioner 06/20/18 documented as of this encounter
--- OUTSIDE RECORDS SUMMARY | 2024-07-10 23:18 | XMS_ITS | Encounter Summary ---
Author Organization [facility] Healthcare Address [address] [place] [address] Care Team Providers Care Forestry Aid Name Role Phone Keyonna Armstrong Primary Care Provider + Encounter Details Date Type Department Care Team (Late st Contact Info) Description 08/07/2018 8:25 AM BILL RECAPITULATION CLERK Anesthesia Event [facility] ([facility]) [facility] [place] [address] Pastor Russell MD [address] [place] [address] Beatriz Lopes NP [address] [facility] [phone] [place] [address] Anesthesia Record Procedure Summary Procedure Name Responsible Anesthesiologist Anesthesia Start Time Anesthesia Stop Time LAPAROSCOPIC CHOLECYSTECTOMY WITH CHOLANGIOGRAMS (Abdomen) Pastor Russell MD 08/07/18 0825 08/07/18 112 5 Events Date Time Event Comment 08/07/2018 0817 0825 An Start 0825 An Start Data 0825 In Room 0836 An Induction The patient was reevaluated immediately before moderate or deep sedation use and before anesthesia induction. 0839 An Intubation 0850 Anesthesia Ready 0905 Proc Start 0905 Incision Start 1111 An Extubation 1111 Proc Fin 1115 an stop data 1116 Out of Room 1125 An Stop 1142 Handoff to RN I completed my handoff to the receiving nurse during which we: 1. Patient identified 2. Responsible provider identified 3. Pertinent medical history reviewed 4. Procedure type and surgical course discussed 5. Intraoperative anesthetic management and any significant issues discussed 6. Expectations and concerns for postop period discussed 7. Questions solicited from receiving nurse 8. Patient disposition at the time of handoff: No value filed. 1621 Release from care Meds Name Total lidocaine 1 % PF 100 mg fentaNYL 175 mcg propofol 350 mg rocuronium 100 mg succinylcholine 100 mg phenylephrine 100 mcg/mL 300 mcg ePHEDrine 5 mg glycopyrrolate 0.8 mg neostigmine injection 1 mg/mL 4 mg ceFAZolin 3,000 mg dexamethasone 4 mg/mL 4 mg Lactated Ringer's (LR) infusion 0 mL * Agents Name O2% N2O O2 Air Sevoflurane Desflurane Inspired Desflurane Inspired Sevoflurane * Blood No blood administrations on file. Lines, Drains, and Airways Type Details Placement Removal Peripheral IV Placement Date: 07/23 01/08; Placement Time: 0806; Catheter Size: 20 G; Orientation: Left; Location: Antecubital; Site Prep: Chlorhexidine; Inserted by: NEGRO jordan; Insertion Attempts: 1; Patient Tolerance: Tolerated well; Removal Date: 08/07/18; Removal Time: 1619 08/07/18 0806 by Casie Nieves RN 08/07/18 1619 by Dariana Vu RN ETT Placement Date: 07/23 01/08; Placement Time: 0839 (created via procedure documentation); Mask Ventilation: 1; Technique: Direct laryngoscopy; Type: ETT - single; Single Lumen Tube Size: 7 mm; Cuffed: Yes; Laryngoscope: Harper; Blade Size: 3; Location: Oral; Grade View: Grade I; Insertion Attempts: 1; Placement Verification: Auscultation, Capnometry; Airway Comment: Videolaryngoscopy used electively given body habitus. Grade 1 view with direct laryngoscopy. ; Removal Date: 08/07/18; Removal Time: 1111 08/07/18 0839 by Jesse Shepherd MD 08/07/18 1111 by Jesse Shepherd MD Peripheral IV Placement Date: 07/23 01/08; Placement Time: 0842 (created via procedure documentation); Catheter Size: 20 G; Orientation: Right; Location: Wrist; Site Prep: Alcohol; Insertion Attempts: 2; Removal Date: 08/07/18; Removal Time: 16108/07/18 0842 by Jesse Shepherd MD 08/07/18 1619 by Dariana Vu RN RETIRED Surgical Site 08/07/18; 0916; Abdomen; 06/24/24 (Retired LDA, Removed/Completed by [email or web address] with LDA Utility); 1213 (Retired LDA, Removed/Completed by [email or web address] with LDA Utility) 08/07/18 0916 by Ellis Mcgill RN 06/24/24 1213 by Discharge Provider, Automatic documented in this encounter Social History Tobacco Use Types Packs/Day Years Used Date Smoking Tobacco: Never Smokeless Tobacco: Never Alcohol Use Standard Drinks/Week Comments No 0 (1 standard drink = 0.6 oz pur e alcohol) Comments No Sex and Gender Information Value Date Recorded Sex Assigned at Not on file Legal Sex Female 6:41 PM BILL RECAPITULATION CLERK Gender Identity Not on file Sexual Orientation Not on file documented as of this encounter OR Notes * Anesthesia Postprocedure Evaluation - Lele Lewis MD DDS - 08/07/2018 4:16 PM CST Patient: Veronica Evangelista Procedure Summary Date: 08/07/18 Room / Location: [facility] CAM OR POD 4 ROOM C / [facility] OR POD 4 Anesthesia Start: 824 Anesthesia Stop: 1124 Procedure: LAPAROSCOPIC CHOLECYSTECTOMY WITH CHOLANGIOGRAMS (N/A Abdomen) Diagnosis: Cholecystitis (Cholecystitis [K81.9]) Surgeon: Elli Hernandez MD PhD Responsible Provider: Pastor Russell MD Anesthesia Type: general ASA Status: 3 Anesthesia Type: general Last vitals BP 149/74 Pulse 116 Temp 36.8 ??C (98.2 ??F) (Temporal) Resp 23 SpO2 100% Anesthesia Post Evaluation Patient location during evaluation: PACU Patient participation: complete - patient participated Level of consciousness: fully awake Pain management: adequate Airway patency: adequate Anesthetic complications: no Cardiovascular status: acceptable Respiratory status: acceptable Hydration status: acceptable Pt is: normothermic Comments: Patient c/o feeling like she couldn't catch her breath earlier, though RR was in low 20's, lungs were clear, and SpO2's were 99-100% on RA. Review of chart showed full reversal after recorded 2/4 twitches. Patient reassured, given metoprolol 5mg in divided doses for HR of 120. HR now generally about 110-112, and patient reports feeling better. OK for d/c home. RECAPITULATION CLERK * Anesthesia Procedure Notes - Jesse Shepherd MD - 08/07/2018 8:59 AM BILL RECAPITULATION CLERK Associated Order(s): PERIPHERAL LINE Peripheral IV Catheter Patient location: OR Start time: 08/07/2018 8:40 AM End time: 08/07/2018 8:42 AM Staff: Placed by: Resident: JESSE SHEPHERD Preprocedure prep: Prep solution: alcohol PPE: gloves and provider hat/mask PIV line: Laterality: right Site: wrist Catheter size: 20 g Technique: anatomical landmarks, direct visualization and palpatation Procedure details: good blood return and occlusive dressing applied Number of attempts: 2 Assessment: Events: patient tolerated procedure well with no complications RECAPITULATION CLERK * Anesthesia Procedure Notes - Jesse Shepherd MD - 08/07/2018 8:57 AM BILL RECAPITULATION CLERK Associated Order(s): ANESTHESIA INTUBATION Airway Patient location: OR Urgency: elective Date/time: 08/07/2018 8:39 AM Indications for airway management: anesthesia Difficult airway: no Staff: Supervising provider: PASTOR RUSSELL Placed by: Resident: JESSE SHEPHERD Emergent airway documentation: Risks and benefits discussed: yes Consent obtained: yes Consent given by: patient Airway prep: Preoxygenated: yes Patient position: sniffing Mask difficulty assessment: 1 - vent by mask Spontaneous ventilation during airway: absent Sedation level during airway: GA Final airway details: Final airway type: endotracheal airway Tube type: ETT ETT size: 7.0 mm Cuffed: yes Technique used for successful ETT placement: direct laryngoscopy Insertion site: oral Blade type: Harper Blade size: 3 Cormack-Lehane (direct): grade I - full view of glottis Cuff volume: 10 mL Cuff inflated with: air ETT to lips: 21 cm Placement verified by: auscultation and CO2 detection Airway secured with: silk tape Number of attempts: 1 Additional comments: Videolaryngoscopy used electively given body habitus. Grade 1 view with direct laryngoscopy. RECAPITULATION CLERK * Anesthesia Preprocedure Evaluation - Pastor Russell MD - 08/02/2018 11:23 AM CST [facility] for Preoperative Assessment and Planning Preoperative Evaluation Record Telephone Preoperative Evaluation ([facility]) - TELEPHONE ONLY, NO PHYSICAL EXAM Date: 08/02/18 Anesthesia Evaluation Veronica Evangelista is a 47 y.o. female Procedure(s): LAPAROSCOPIC CHOLECYSTECTOMY WITH CHOLANGIOGRAMS HISTORY HPI Veronica Evangelista is a 47 y.o. female who is being evaluated prior to undergoing laparoscopic cholecystectomy with cholangiograms for cholecystitis. Past Medical History Information obtained from: patient and chart. Neurological + Psychiatric history - depression and anxiety Pertinent negatives: seizures; neuromuscular disease; CVA/stroke; TIA; CEA; ICA stenosis; dementia/mild cognitive impairment and carotid artery stent Cardiovascular + Hypertension (Sees PCP ~ 2x/yr ) Hypertension year diagnosed: 2008 . Typical systolic BP - 135 Typical diastolic BP - 85 + Systolic or diastolic dysfunction w/o CHF Diastolic function: unspecified dysfunction LVEF: 60-70%. + Other arrhythmia (states baseline fast heart rate in 110s-120s; had neg. cardiac w/u at OSH in 05/2018 ) - other. Pertinent negatives: CAD ; RI ; CABG ; valvular heart disease; valve replacement; atrial fibrillation; pacemaker/ICD; PVD; DVT/PE; negative for CHF; drug-eluting stent(s); bare metal stent(s) and coronary angioplasty Respiratory + Sleep apnea (ZENON) (patient verbalizes understanding to use consistently in periop period & bring CPAP with on DOS) Prescribed device: PAP occasionally compliant and CPAP. Pertinent negatives: COPD; asthma; pulmonary hypertension; no O2 use outside the hospital and non-smoker Hepatic / Heme Pertinent negatives: liver disease; history of anemia; history of thrombocytopenia and history of Kacey positive Gastrointestinal + GERD - on daily therapy. Asymptomatic. Pertinent negatives: hiatal hernia Renal / + Nephrolithiasis Pertinent negatives: renal disease and dialysis Musculoskeletal/Pain + Osteoarthritis Pertinent negatives: chronic pain; chronic opioid use and previous treatment for opioid use disorder Endocrine / Other + Obesity (BMI >30)- morbid obesity (BMI>40). Pertinent negatives: diabetes mellitus; thyroid disease; cancer history; rheumatological disease and transplanted organ Functional Capacity Functional capacity: <4 METs Comments: States able to climb 1 flight of stairs or walk 2 city blocks - no cp but has stable, chronic bella Review of Systems + SOB (stable, chronic bella ) + wheezing (rare ) + easy bruising (denies excessive bleeding ) + heartburn (occ. ) + nausea/vomiting (nausea but no emesis ) + abdominal pain (RUQ pain ) Pertinent negatives: productive cough; recent cold/flu; fever; chest pain; palpitations; orthopnea;pedal edema; PND; heavy menses; Sickle Cell disease/trait; previous transfusion; transfusion reaction; melena/hematochezia; bleeding problems; syncope; dizziness; muscle weakness; chronic pain; numbne ss/tingling; hard of hearing; vision loss; dysphagia; diarrhea; dentures/partials; chipped/loose teeth; diaphoresis and no unexpected weight change PAT Summary and Plans Cardiac risk classification of planned procedure: low cardiac risk. Preoperative assessment status: complete. Initial preoperative evaluation discussed with: CHETAN CHÁVEZ Additional comments: Veronica Evangelista is a 47 y.o. female who is being evaluated prior to undergoinga low-intermediate cardiac risk surgery. Revised Cardiac Risk Index factors are (none) for a total RCRI of 0 out of 6. Comorbidities including HTN, ZENON, PCOS & [place]. Functional capacity is <4 METs specifically: stable bella Obstructive sleep apnea (ZENON) screening status is HIGH RISK due to known ZENON. Blood bank needs for day of procedure: No type and screen needed Pending labs/tests include: none. This assessment was performed via telephone. Therefore the physical exam has been deferred to the day of surgery team. The patient was provided with preoperative instructions for their medications. The patient was instructed to shower/bathe the night prior and the morning of the planned procedure using an antibacterial soap. Patient instructions were provided by telephone. Patient verbalized understanding of preoperative plan. Preoperative evaluation performed by Katherine Corey NP on 08/02/18 at 12:04 PM.. Patient Active Problem List Diagnosis ??? Class 3 severe obesity with serious comorbidity in adult (CMS/HCC) ??? Calculus of gallbladder with acute cholecystitis without obstruction ??? HTN (hypertension) ??? PCOS (polycystic ovarian syndrome) ??? Depression ??? Cholecystitis Past Medical History: Diagnosis Date ??? Cholelithiasis ??? Depression ??? Hypertension ??? PCOS (polycystic ovarian syndrome) Past Surgical History: Procedure Laterality Date ??? CARLOS MANUEL-EN-Y PROCEDURE [address] Lafleur OB History No data available No Known Allergies HOME MEDICATIONS : cholecalciferol (VITAMIN D-3) 5,000 unit capsule ENPRESSE 50-30 (6)/75-40 (5)/125-30(10) per tablet glucosamine/chondr hernadez A sod (OSTEO BI-FLEX ORAL) hydroCHLOROthiazide (HYDRODIURIL) 25 mg tablet lisinopril (PRINIVIL,ZESTRIL) 40 mg tablet LORazepam (ATIVAN) 0.5 mg tablet metFORMIN (GLUCOPHAGE) 500 mg tablet metoprolol XL (TOPROL-XL) 100 mg 24 hr tablet multivitamin tablet pantoprazole DR (PROTONIX) 40 mg EC tablet venlafaxine XR (EFFEXOR-XR) 75 mg 24 hr capsule VENTOLIN HFA 90 mcg/actuation inhaler zolpidem (AMBIEN) 10 mg tablet No current facility-administered medications for this encounter. Current Outpatient Prescriptions: ??? cholecalciferol (VITAMIN D-3) 5,000 unit capsule ??? ENPRESSE 50-30 (6)/75-40 (5)/125-30(10) per tablet ??? glucosamine/chondr hernadez A sod (OSTEO BI-FLEX ORAL) ??? hydroCHLOROthiazide (HYDRODIURIL) 25 mg tablet ??? lisinopril (PRINIVIL,ZESTRIL) 40 mg tablet ??? LORazepam (ATIVAN) 0.5 mg tablet ??? metFORMIN (GLUCOPHAGE) 500 mg tablet ??? metoprolol XL (TOPROL-XL) 100 mg 24 hr tablet ??? multivitamin tablet ??? pantoprazole DR (PROTONIX) 40 mg EC tablet ??? venlafaxine XR (EFFEXOR-XR) 75 mg 24 hr capsule ??? VENTOLIN HFA 90 mcg/actuation inhaler ??? zolpidem (AMBIEN) 10 mg tablet Social History Smoking Status ??? Never Smoker Smokeless Tobacco ??? Never Used Alcohol Use No Drug Use No Family History Problem Relation Age of Onset ??? Hypertension Mother ??? Diabetes Father ??? Hypertension Father ??? Thyroid cancer Sister PAT Physical Exam There were no vitals filed for this visit. Relevant diagnostics: ECG(s): 05/30/2018: EKG (Care Everywhere) - ST 106 bpm w/ NSTWA Echocardiogram(s): 05/30/2018: TTE (Care Everywhere): TTE - 1.Normal LV systolic function. No focal wall motion abnormalities. Normal LV size. Normal LV wall thickness. Sigmoid hypertrophy of the septum. Diastolic dysfunction is present. EF visually estimated at 60- 65%. 2.)Normal appearance of TV. Normal RVSP. Trivial regurg in TV. 3.)Normal size & normal respiratory collapse c/w normal RAP. 4.)SinusTachycardia. Stress test(s): N/A Cardiac catheterization(s): N/A PFT(s): N/A Vascular studies: N/A Other: N/A Hgb A1C: 07/11/2018: 5.1 % of total Hgb CBC RBC: No results found for requested labs within last 720 hours. RDW: 07/11/2018: 13.9 % MCHC: 07/11/2018: 32.5 g/dL MCH: 07/11/2018: 29.0 pg MCV: 07/11/2018: 89.3 fL Hct: 07/11/2018: 39.4 % Hgb: 07/11/2018: 12.8 g/dL WBC: 07/11/2018: 10.0 Thousand/uL MPV: 07/11/2018: 9.8 fL Platelets: 07/11/2018: 390 Thousand/uL RDW CV: No results found for requested labs within last 720 hours. RDW Sd: No results found for requested labs within last 720 hours. BMP Glucose: 07/11/2018: 92 mg/dL Calcium: 07/11/2018: 9.2 mg/dL Sodium: 07/11/2018: 137 mmol/L Potassium: 07/11/2018: 4.2 mmol/L CO2: 07/11/2018: 29 mmol/L Chloride: 07/11/2018: 104 mmol/L BUN: 07/11/2018: 21 mg/dL Creatinine: 07/11/2018: 0.79 mg/dL Magdiel index score: 95 DOS Physical Exam Medical history, medications, and allergies reviewed. Attestation: This PAT evaluation 08/02/2018. Airway Exam: Mallampati: II Cervical ROM: FROM Cardiovascular Exam: Rate: regular Rhythm: regular Pulmonary Exam: LCTA, bilat EENT Exam: trachea midline Dental Exam: Appears intact Current state: Patient's current state is cooperative and interactive. Anesthesia Plan ASA 3 My patient is approved for the Anesthesia Controlled Medication protocol when under care of a [facility] ROOM Planned anesthesia: General Team communication plan: oral ET tube Induction: Induction: intravenous. Postoperative Plan: No plan for postoperative opioid use. No postoperative mechanical ventilation intended. Patient's planned disposition post procedure is Outpatient. Informed Consent: Discussed plan with resident. Anesthesia plan and risks discussed with patient and spouse. Consent and Attending signature: I and/or my designee have discussed the anesthesia plan, benefits, possible alternatives, parental presence at time of induction (if indicated), and clinically relevant risks that may include dental injury, unintentional awareness, and/or other complications. The patient and/or parent/legal guardian understand, and agree to proceed. All questions answered. RECAPITULATION CLERK RECAPITULATION CLERK documented in this encounter Miscellaneous Notes * Addendum Note - Pastor Russell MD - 08/07/2018 4:21 PM CST Addendum created 08/07/18 5385 by Pastor Russell MD Anesthesia Event edited RECAPITULATION CLERK documented in this encounter Plan of Treatment Not on file documented as of this encounter Procedures Procedure Name Priority Date/Time Associated Diagnosis Comments PERIPHERAL LINE Routine 08/07/2018 8:59 AM BILL RECAPITULATION CLERK Procedure Note - Jesse Shepherd MD - 08/07/2018 8:59 AM CSTThis note is in progress. Peripheral IV Catheter Patient location: OR Start time: 08/07/2018 8:40 AM End time: 08/07/2018 8:42 AM Staff: Placed by: Resident: JESSE SHEPHERD Preprocedure prep: Prep solution: alcohol PPE: gloves and provider hat/mask PIV line: Laterality: right Site: wrist Catheter size: 20 g Technique: anatomical landmarks, direct visualization and palpatation Procedure details: good blood return and occlusive dressing applied Number of attempts: 2 Assessment: Events: patient tolerated procedure well with no complications ANESTHESIA INTUBATION Routine 08/07/2018 8:57 AM BILL RECAPITULATION CLERK Procedure Note - Jesse Shepherd MD - 08/07/2018 8:57 AM CSTThis note is in progress. Airway Patient location: OR Urgency: elective Date/time: 08/07/2018 8:39 AM Indications for airway management: anesthesia Difficult airway: no Staff: Supervising provider: PASTOR RUSSELL Placed by: Resident: JESSE SHEPHERD Emergent airway documentation: Risks and benefits discussed: yes Consent obtained: yes Consent given by: patient Airway prep: Preoxygenated: yes Patient position: sniffing Mask difficulty assessment: 1 - vent by mask Spontaneous ventilation during airway: absent Sedation level during airway: GA Final airway details: Final airway type: endotracheal airway Tube type: ETT ETT size: 7.0 mm Cuffed: yes Technique used for successful ETT placement: direct laryngoscopy Insertion site: oral Blade type: Harper Blade size: 3 Cormack-Lehane (direct): grade I - full view of glottis Cuff volume: 10 mL Cuff inflated with: air ETT to lips: 21 cm Placement verified by: auscultation and CO2 detection Airway secured with: silk tape Number of attempts: 1 Additional comments: Videolaryngoscopy used electively given body habitus. Grade 1 view withdirect laryngoscopy. documented in this encounter Visit Diagnoses Not on filedocumented in this encounter Administered Medications Inactive Administered Medications - up to 3 most recent administrations Medication Order MAR Action Action Date Dose Rate Site ceFAZolin (ANCEF) injection intravenous, As needed, Starting on Sun08/07/18 at 0851, Anesthesia Intra-op Given 08/07/2018 8:51 AM BILL RECAPITULATION CLERK 3,000 mg dexamethasone (DECADRON) injection Administer over 2 Minutes, As needed, Starting on Sun08/07/18 at 0913, Anesthesia Intra-op Given 08/07/2018 9:13 AM BILL RECAPITULATION CLERK 4 mg ePHEDrine injection intravenous, Administer over 5 Minutes, As needed, Starting on Sun08/07/18 at 0914, Anesthesia Intra-op Given 08/07/2018 9:14 AM BILL RECAPITULATION CLERK 5 mg fentaNYL (SUBLIMAZE) preservative free injection intravenous, As needed, Starting on Sun08/07/18 at 0836, Anesthesia Intra-op Given 08/07/2018 11:05 AM BILL RECAPITULATION CLERK 25 mcg Given 08/07/2018 10:36 AM BILL RECAPITULATION CLERK 50 mcg Given 08/07/2018 8:36 AM BILL RECAPITULATION CLERK 100 mcg glycopyrrolate (ROBINUL) injection intravenous, Administer over 1 Minutes, As needed, Starting on Sun08/07/18 at 1057, Anesthesia Intra-op Given 08/07/2018 10:57 AM BILL RECAPITULATION CLERK 0.8 mg Lactated Ringer's (LR) infusion 30 mL/hr, intravenous, Continuous, Starting on Sun08/07/18 at 0830, Pre-Op New Bag 08/07/2018 12:38 PM BILL RECAPITULATION CLERK 30 mL/hr 30 mL/ hr New Bag 08/07/2018 8:25 AM BILL RECAPITULATION CLERK New Bag 08/07/2018 8:10 AM BILL RECAPITULATION CLERK 30 mL/hr 30 mL/hr Le ft Antecubital lidocaine PF (XYLOCAINE) 10 mg/mL (1 %) preservative free injection As needed, Starting on Sun08/07/18 at 0836, Anesthesia Intra-op Given 08/07/2018 8:36 AM BILL RECAPITULATION CLERK 100 mg neostigmine (PROSTIGMIN) injection intravenous, Administer over 3 Minutes, As needed, Starting on Sun08/07/18 at 1057, Anesthesia Intra-op Given 08/07/2018 10:57 AM BILL RECAPITULATION CLERK 4 mg phenylephrine (LOREE-SYNEPHRINE) 0.5 mg/5 mL (100 mcg/mL) premix syringe in 0.9% sodium chloride intravenous, As needed, Starting on Sun08/07/18 at 0914, Anesthesia Intra-op Given 08/07/2018 10:50 AM BILL RECAPITULATION CLERK 100 mc g Given 08/07/2018 10:40 AM BILL RECAPITULATION CLERK 100 mcg Given 08/07/2018 9:14 AM BILL RECAPITULATION CLERK 100 mcg propofol (DIPRIVAN) IV intravenous, As needed, Starting on Sun08/07/18 at 0836, Anesthesia Intra-op Given 08/07/2018 10:35 AM BILL RECAPITULATION CLERK 50 mg Given 08/07/2018 10:29 AM BILL RECAPITULATION CLERK 50 mg Given 08/07/2018 8:36 AM BILL RECAPITULATION CLERK 250 mg rocuronium (ZEMURON) injection intravenous, As needed, Starting on Sun08/07/18 at 0905, Anesthesia Intra-op Given 08/07/2018 10:10 AM BILL RECAPITULATION CLERK 20 mg Given 08/07/2018 9:46 AM BILL RECAPITULATION CLERK 20 mg Given 08/07/2018 9:08 AM BILL RECAPITULATION CLERK 10 mg succinylcholine (ANECTINE) injection intravenous, As needed, Starting on Sun08/07/18 at 0838, Anesthesia Intra-op Given 08/07/2018 8:38 AM BILL RECAPITULATION CLERK 100 mg documented in this encounter Orders Procedures Count Last Ordered Date First Orde red Date ANESTHESIA INTUBATION 08/07/2018 PERIPHERAL LINE 08/07/2018 documented in this encounter Care Teams Forestry Aid Relationship Specialty Start Date End Date Keyonna Armstrong PA PCP - General Nurse Practitioner 06/20/18 documented as of this encounter
--- OUTSIDE RECORDS SUMMARY | 2024-07-10 23:18 | XMS_ITS | Encounter Summary ---
Author Organization [facility] Healthcare Address [address] [place] [address] Care Team Providers Care Chain Maker Name Role Phone Keyonna Armstrong Primary Care Provider + Encounter Details Date Type Department Care Team (Latest Contact Info) Description 05/09/2021 - 05/09/2021 12:04 AM CDT Hospital Encounter [facility] [employer] [address] [place] [address] Discharge Disposition: Discharge to home or self care Social History Tobacco Use Types Packs/Day Years Used Date Smoking Tobacco: Never Smokeless Tobacco: Never Alcohol Use Standard Drinks/Week Comments No 0 (1 standard drink = 0.6 oz pur e alcohol) Comments No Sex and Gender Information Value Date Recorded Sex Assigned at Not on file Legal Sex Female 6:41 PM SOLE RUFFER Gender Identity Not on file Sexual Orientation [...] XR TRANSFER OF OUTSIDE FILMS Routine 05/09/2021 12:00 AM CDT documented in this encounter Results * XR Outside Reference (05/09/2021 12:00 AM CDT) Narrative MIGUEL A_[email or web address]_M[facility] - 05/30/2021 7:48 AM SOLE RUFFER This order has been auto-finalized and does not contain a result. us Provider Transcribed Order IMG XR PROCEDURES Fin al Result RAD_[id number]_MHE documented in this encounter Visit Diagnoses Not on filedocumented in this encounter Care Teams Chain Maker Relationship Specialty Start Date End Date Keyonna Armstrong PA PCP - General Nurse Practitioner 06/20/18 documented as of this encounter
--- OUTSIDE RECORDS SUMMARY | 2024-07-10 23:18 | XMS_ITS | Encounter Summary ---
Author Organization [facility] Address [address] [place] [address] Care Team Providers Care Attorney General Name Role Phone Keyonna Armstrong Primary Care Provider + Reason for Referral * Diagnostic Imaging (Routine) - Closed Specialty Diagnoses / Procedures Referred By Contac t Referred To Contact Diagnoses Neck pain Procedures XR Spine Cervical W Flexion And Extension 6 or More Views Valentina Curtis NP [address] [place] [address] DR KNOX [address] [place] [id number] Phone: tel: fax: [address] [phone] Referral ID Status Reason Start Date Expiration Date Visits Re quested Visits Authorized [id number] Closed 05/30/2021 06/29/2022 1 1 R PERSON Reason for Visit * Diagnostic Imaging (Routine) - Closed Specialty Diagnoses / Procedures Referred By Contac t Referred To Contact Diagnoses Neck pain Procedures XR Spine Cervical W Flexion And Extension 6 or More Views Valentina Curtis NP [address] [place] [address] DR KNOX [address] [place] [id number] Phone: tel: fax: [address] [phone] Referral ID Status Reason Start Date Expiration Date Visits Re quested Visits Authorized [id number] Closed 05/30/2021 06/29/2022 1 1 Encounter Details Date Type Department Care Team (Latest Contact Info) Description 06/02/2021 11:15 AM FLOOR PERSON - 06/02/2021 11:59 PM FLOOR PERSON Hospital Encounter [facility] [address] [place] [address] Neck pain Discharge Disposition: Discharge to home or self care Social History Tobacco Use Types Packs/Day Years Used Date Smoking Tobacco: Never Smokeless Tobacco: Never Alcohol Use Standard Drinks/Week Comments No 0 (1 standard drink = 0.6 oz pur e alcohol) Comments No Sex and Gender Information Value Date Recorded Sex Assigned at Not on file Legal Sex Female 6:41 PM FLOOR PERSON Gender Identity Not on file Sexual Orientation Not on file 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 Right neck pain for 3 months. TECHNIQUE: ??AP, lateral, odontoid, flexion, extension, right oblique and left oblique radiographic views acquired of the cervical spine. COMPARISON: ?? None available FINDINGS: ALIGNMENT: ??There is trace anterolisthesis of [...] clear. OTHER: ??No other significant finding. IMPRESSION: ?? Mild cervical spondylosis as above. THIS IS AN ELECTRONICALLY VERIFIED FINAL REPORT 06/02/2021 3:30 PM - Electronically signed by Sher DIETRICH D: ??06/02/2021 12:17 PM T: ??06/02/2021 1:52 PM Report ID: [id number] Reading Location: ??[id number] Procedure Note Sher Giron MD - 06/02/2021 EXAM DESCRIPTION: XR SPINE CERVICAL W FLEXION AND EXTENSION 6 OR MOREVIEWS REASON FOR STUDY: Right neck pain for 3 months. TECHNIQUE: AP, lateral, odontoid, flexion, extension, right oblique andleft oblique radiographic views acquired of the cervical spine. COMPARISON: None available FINDINGS: ALIGNMENT: There is trace anterolisthesis of C3 with respect to F8adpnsiv evidence of instability on flexion or extension views. VERTEBRAE: Vertebral bodies of normal height. Mild mid cervical spinefacet and uncovertebral hypertrophy. DISCS: Mild multilevel loss of intervertebral body disc space withendplate sclerosis and marginal osteophytosis favoring C5-C6. FORAMINA: No osseous stenosis. HARDWARE: None in the spine. SOFT TISSUES: No soft tissue swelling. Lung apices clear. OTHER: No other significant finding. IMPRESSION: Mild cervical spondylosis as above. THIS IS AN ELECTRONICALLY VERIFIED FINAL REPORT 06/02/2021 3:30 PM - Electronically signed by Sher DIETRICH Report ID: [id number] Reading Location: [place] [address] Valentina Curtis DIRECTOR [facility] XR PROCEDURES Final Res ult documented in this encounter Visit Diagnoses Diagnosis Neck pain Cervicalgia documented in this encounter Care Teams Attorney General Relationship Specialty Start Date End Date Keyonna Armstrong PA PCP - General Nurse Practitioner 06/20/18 documented as of this encounter
--- OUTSIDE RECORDS SUMMARY | 2024-07-10 23:18 | XMS_ITS | Encounter Summary ---
Author Organization [facility] Address [address] [address] Care Team Providers Care Electrical Engineer Name Role Phone Keyonna Armstrong Primary Care Provider + Reason for Referral * Procedure (Routine) - Closed Specialty Diagnoses / Procedures Referred By Contac t Referred To Contact Diagnoses Myalgia of muscle of neck Procedures Trigger Point Injection Valentina Curtis NP [facility] [address] [address] [place] [address] Phone: tel: fax: [facility] Referral ID Status Reason Start Date Expiration Date Visits Re quested Visits Authorized [id number] Closed 06/02/2021 07/02/2022 1 1 CH AND LANGUAGE ASSISTANT * Neurology (Routine) - Closed Specialty Diagnoses / Procedures Referred By Contac t Referred To Contact Diagnoses Right cervical radiculopathy Numbness and tingling of right upper extremity Procedures EMG/NCV - Valentina Curtis NP [address] [place] [address] [address] Phone: tel: fax: [address] [phone] Referral ID Status Reason Start Date Expiration Date Visits Re quested Visits Authorized [id number] Closed 06/02/2021 07/02/2022 1 1 CH AND LANGUAGE ASSISTANT * MRI/CAT/PET Scan (Routine) - Closed Specialty Diagnoses / Procedures Referred By Lee saunders Referred To Contact Radiology Diagnoses Right cervical radiculopathy Procedures MRI Cervical Spine WO Contrast Valentina Curtis NP [address] [place] [address] Phone: tel: fax: [address] [phone] Referral ID Status Reason Start Date Expiration Date Visits Re quested Visits Authorized [id number] Closed 06/02/2021 07/02/2022 1 1 CH AND LANGUAGE ASSISTANT * Diagnostic Imaging (Routine) - Closed Specialty Diagnoses / Procedures Referred By Lee saunders Referred To Contact Diagnoses Neck pain Procedures XR Spine Cervical W Flexion And Extension 6 or More Views Valentina Curtis NP [address] [place] [address] Phone: tel: fax: [address] [phone] Referral ID Status Reason Start Date Expiration Date Visits Re quested Visits Authorized [id number] Closed 05/30/2021 06/29/2022 1 1 CH AND LANGUAGE ASSISTANT Reason for Visit * Reason Comments Pain * Consultation (Routine) - Closed Specialty Diagnoses / Procedures Referred By Lee t Referred To Contact Orthopedic Surgery Diagnoses Right shoulder pain, unspecified chronicity Cervicalgia Keyonna Armstrong PA [address] [place] [address] Phone: tel: fax: [facility] Orthopedics and Sports Medicine [address] [place] [phone] Phone: tel: fax: Referral ID Status Reason Start Date Expiration Date V isits Requested Visits Authorized [id number] Closed Specialty Services Required 05/23/2021 12/19/2021 7 7 Encounter Details Date Type Department Care Team (Latest Contact Info) Description 06/02/2021 11:00 AM SPEECH AND LANGUAGE ASSISTANT Office Visit [facility] Orthopedics and Sports Medicine [address] [facility] [address] [place] [phone] Valentina Curtis NP [facility] [address] [place] [address] Right cervical radiculopathy; 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 cervical vertebra-mild C5-C6, C6-C7; Protrusion of cervical intervertebral disc, C5-C6; Arthropathy of cervical facet joint-mild mid; Spondylolisthesis of cervical region- grade 1 anterolisthesis of C3 on C4 and grade 1 retrolisthesis of C5 on C6. Grade 1 anterolisthesis of C7 on T1. 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 Not on file Not on file Not on leeann e documented as of this encounter Last Filed Vital Signs Vital Sign Reading Time Taken Comments Blood Pressure - - Pulse - - Temperature - - Respiratory Rate - - Oxygen Saturation - - Inhaled Oxygen Concentration - - Weight 122.5 kg (270 lb) 06/02/2021 11:33 AM SPEECH AND LANGUAGE ASSISTANT Height 165.1 cm (5' 5) 06/02/2021 11:33 AM SPEECH AND LANGUAGE ASSISTANT Body Mass Index 44.93 06/02/2021 11:33 AM SPEECH AND LANGUAGE ASSISTANT documented in this encounter Progress Notes * Valentina Curtis NP - 06/02/2021 11:00 AM CSTAssociated Order(s): Trigger Point Injection Addendum July 25, 2021 I contacted Veronica Evangelista by telephone [phone] today July 25, 2021 to discuss the findings present on her MRI cervical spine completed July 21, 2021. We discussed options for referral to interventional pain management with Dr. Jonathan Ochoa as well as to consider options for referral to Neurosurgery with Dr. Ezequiel Seals. Veronica would like to try interventional pain management with Dr. Eddi Ochoa 1st and if she does not get good resolution of her right cervical radiculopathy pain symptoms with interventional pain management, then she will contact me at the Orthopedic clinic and I can then refer her to Dr. Ezequiel Seals, neurosurgery. Plan: 1. Referred to Dr. Jonathan Ochoa, interventional pain management for further evaluation/treatment of right cervical radiculopathy pain symptoms 2. If Veronica does not find good reduction of right cervical radiculopathy pain symptoms after interventional pain management with Dr. Jonathan Ochoa, then she will call me at the orthopedic clinic and I will refer her to Dr. Ezequiel Seals, neurosurgeon [facility] MRI cervical spine without contrast July 21, 2021, findings per radiologist Dr. Major Ruano: FINDINGS: ALIGNMENT: Straightening of the cervical lordosis. There is grade 1 anterolisthesis of C3 on C4 andgrade 1 retrolisthesis of C5 on C6. Grade 1 anterolisthesis of C7 on T1. VERTEBRAE: There is no acute compression fracture in the cervical spine. In the setting of trauma aCT has higher sensitivity for subtle spinal fractures and can be obtained as clinically indicated. Multilevel kssl-lc-ahacnlcg endplate degenerative changes with marginal spur formation. [...] indents the ventral cord. Thickened ligamentum flavum. Rcur-tk-llfuhbfb spinal canal stenosis. Uncovertebral spurring and facet arthropathy with mild right and euzr-gs-ykyiktrg left neural foraminal narrowing. C7-T1: Anterolisthesis of C7 on T1 with unroofing of the disc. No significant spinal canal or neural foraminal narrowing. UPPER THORACIC: Incompletely imaged. No high-grade spinal canal stenosis. IMPRESSION: 1. Multilevel irso-zp-gxqxetyq cervical spondylotic changes as described. Spinal canal narrowing ismost noticeable at C5-C6 and C6-C7. 2. Varying degrees of bilateral neural foraminal stenosis and additional findings as discussed above. Addendum June 22, 2021 EMG/NCS study right upper extremity completed June 21, [address] Memo Elliott: Conclusion: 1. There is no electrodiagnostic evidence of a right cervical radiculopathy, brachial plexopathy, suprascapular neuropathy right median, ulnar or radial focal distal neuropathy at the wrist or at theelbow at present time. 2. Normal needle EMG examination of selected muscles of right upper extremity and cervical paraspinal muscles. Reason for Appointment June 02, 2021 1. Neck pain with radiation down the right arm to the fingers evaluation History of Present Illness: Veronica Evangelista is a 50 y.o. female arrived to the orthopedic department ambulatory, walking with no assisted devices. She was referred to me by Dr. Pepe Zepeda for further evaluation of her chronic neck pain symptoms. Veronica reports that the pain that bothers her the most is a stabbing, like a piece of metal being shoved into her right scapular region as well as right-sided posterior neck pain symptoms. She has also been experiencing tingling sensation radiating down her right arm to her right thumb and pointer finger. Her pain symptoms range between 6-9/10 with her pain worse at night. She states that she tosses and turns at night. When she turns her neck to the left she gets a shooting pain into the right arm and scapular region. Her pain symptoms worsen with lifting groceries, lifting a laundry basket, lifting her grandchildren. She went to [facility] 3 weeks ago and had dry needle therapy and physical therapy which she stopped due to increasing pain. She has tried home cervical spine range of motion exercises. [facility] with no reduction of pain symptoms. She currently uses Voltaren gel, ibuprofen, acetaminophen, Robaxin and ice therapy. She previously tried Tylenol #3. She reports having right scapula type pain ongoing for approximately 20 years with an unknown cause. Recent injuries: summer--she fell out of the car landing on her right side on concrete. She was able to get herself up and walk. Assessment: Diagnosis Plan 1. Right cervical radiculopathy XR Spine Cervical W Flexion And Extension 6 or More Views MRI Cervical Spine WO Contrast EMG/NCV - 2. 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 cervical kuwihigf-newvV1-B8, C6-C7 3. Protrusion of cervical intervertebral disc, C5-C6 4. Arthropathy of cervical facet joint-mild mid 5. Spondylolisthesis of cervical region- grade 1 anterolisthesis of C3 on C4 and grade 1 retrolisthesis of C5 on C6. Grade 1 anterolisthesis of C7 on T1. 6. Numbness and tingling of right upper extremity EMG/NCV - 7. Myalgia of muscle of neck Trigger Point Injection lidocaine (XYLOCAINE) 10 mg/mL (1 %) injection 3 mL methylPREDNISolone acetate (DEPO-medrol) injection 120 mg 8. Cervicalgia Ambulatory referral to Orthopedic Surgery Plan: ??? I reviewed with Veronica and her , the cervical spine 6 view x-ray obtained today June 02, 2021. See the findings below for more details. ??? Today I gave Veronica (3) cortisone trigger point injections using 1 mL 1% lidocaine without epi and 40 mg triamcinolone to each area of the right cervical paraspinal muscles near C4-C5, C5-C6, C6-C7 where there were focal areas of hyperirritability with palpation. ??? I have ordered an MRI of the cervical spine. Reason for MRI of the cervical spine: Right cervical radiculopathy pain symptoms concerning for pain more prominent near the right C6, C7 dermatomal pathway. Failed conservative treatment with animal caretaker, physical therapy, use of Voltaren gel, ibuprofen, Tylenol and Robaxin. She was instructed follow up with me after she has completed the MRI of the cervical spine. ??? For her right upper extremity numbness, tingling sensation, I have ordered an EMG/NCS study of the right upper extremity to be done by Dr. Memo Elliott. Veronica was instructed follow up with me after she has completed the EMG/NCS study of the right upper extremity. ??? If her point tenderness symptoms persist over the right rhomboid major muscle region, then winnie will need to be further evaluated at her next visit if there are no findings on her MRI of thecervical spine to suggest a cause for pain radiating into the right scapular region. Imaging Reviewed: Cervical spine x-ray (6 views) June 02, [...] finding. IMPRESSION: Mild cervical spondylosis as above. Procedure: Trigger Point Injection Performed by: Valentina [...] Yes Indications: Myalgia Procedure Details: Location: R cervical paraspinal Local anesthetic: Ethyl chloride spray Ultrasound guidance: No Needle size: 25 G Number of muscles: 3 or more Approach: Posterior 3 mL lidocaine 10 mg/mL (1 %); 120 mg methylPREDNISolone acetate 40 mg/mL Patient tolerance: Patient tolerated the procedure well with no immediate complications Examination: Ortho Exam Cervical spine exam: Inspection of the cervical spine shows normal alignment, no surgical scars, no skin defects, no muscle atrophy, no masses, no rashes. No presence of scapular winging. Palpation: There is no concerning pain with palpation over the cervical or thoracic spinous processregion. There is tenderness with palpation of the right cervical paraspinal/facet region greatest at C4, C5, C6 and C7 level. There is a focal area of tenderness with palpation to the right rhomboidmajor muscle region. Range of motion with extension is 60??, there is immediate pain to the right posterior cervical region with a shooting pain radiating down the right arm with neck flexion and lateral rotation towardsthe right; also lateral rotation to the left produces increased pain on the right. Spurlings test does produce radicular pain down the right arm Hoffmans test is negative. 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 Fingers warm to touch with capillary refill < 2 seconds. Tinels Sign does not produce a numbness or tingling sensation in the thumb, index or middle finger. GENERAL APPEARANCE: Well-nourished, in no acute distress NECK: Neck supple SKIN: No rashes, good turgor, warm and dry, no suspicious lesions HEART:Regular rate LUNGS: Unlabored breathing ABDOMEN: Soft,no guarding MUSCULOSKELETAL: See cervical spine exam above. EXTREMITIES: Capillary refill < 2 seconds in nail beds, 2+ bilateral peripheral pulses, no upperextremity peripheral edema NEUROLOGIC: Alert and oriented. She walks independently with a stable gait with no assisted devices. PSYCH: Cooperative with exam Allergies: Trazodone Medications: Current Outpatient Medications: ??? acetaminophen-codeine (TYLENOL with CODEINE #3) 300-30 mg per tablet, , Disp: , Rfl: ??? amLODIPine (NORVASC) 5 mg tablet, Take 5 mg by mouth., Disp: , Rfl: ??? aspirin 81 mg chewable tablet, 81 mg daily, Disp: , Rfl: ??? buPROPion SR (WELLBUTRIN SR) 150 mg 12 hr tablet, Take 1 tablet by mouth 2 (two) times a day, Disp: , Rfl: ??? cholecalciferol (VITAMIN D-3) 5,000 unit capsule, Take 5,000 Units by mouth every morning. , Disp: , Rfl: ??? diclofenac sodium (VOLTAREN) 1 % gel, Apply 4 g topically 4 (four) times a day, Disp: , Rfl: ??? fluticasone propionate (FLONASE) 50 mcg/actuation nasal spray, SPRAY 1 SPRAY INTO EACH NOSTRIL EVERY DAY, Disp: , Rfl: ??? glucosamine/chondr hernadez A sod (OSTEO BI-FLEX ORAL), Take 1 tablet by mouth every morning., Disp: , Rfl: ??? hydroCHLOROthiazide (HYDRODIURIL) 25 mg tablet, Take 25 mg by mouth every morning. , Disp: , Rfl: 0 ??? ibuprofen (ADVIL,MOTRIN) 800 mg tablet, , Disp: , Rfl: ??? Lactobacillus acidophilus (Probiotic) 10 billion cell capsule, Rx: Probiotic - Capsule, Disp: ,Rfl: ??? lisinopril (PRINIVIL,ZESTRIL) 40 mg tablet, Take 40 mg by mouth every morning. , Disp: , Rfl: 0 ??? LORazepam (ATIVAN) 1 mg tablet, , Disp: , Rfl: ??? metFORMIN (GLUCOPHAGE) 500 mg tablet, TAKE 1 TABLET BY MOUTH EVERY MORNING AND TAKE 2 TABLETS AT BEDTIME, Disp: , Rfl: 1 ??? methocarbamol (ROBAXIN) 750 mg tablet, Take 1-2 tablets by mouth., Disp: , Rfl: ??? metoprolol XL (TOPROL-XL) 100 mg 24 hr tablet, Take 100 mg by mouth nightly. , Disp: , Rfl: 1 ??? multivitamin tablet, Take 1 tablet by mouth every morning., Disp: , Rfl: ??? pantoprazole DR (PROTONIX) 20 mg EC tablet, , Disp: , Rfl: ??? sennosides (Laxative Maximum Strength) 25 mg tablet, 25 mg daily, Disp: , Rfl: ??? simethicone (Gas Relief, simethicone,) 80 mg chewable tablet, 80 mg 4 (four) times a day, Disp:, Rfl: ??? venlafaxine XR (EFFEXOR-XR) 75 mg 24 hr capsule, Take 225 mg by mouth nightly., Disp: , Rfl: ??? VENTOLIN HFA 90 mcg/actuation inhaler, TAKE 2 PUFFS BY MOUTH EVERY 4 HOURS NEEDED FOR WHEEZING, Disp: , Rfl: 1 ??? zolpidem (AMBIEN) 10 mg tablet, TAKE 1 TABLET BY MOUTH AT BEDTIME NEEDED, Disp: , Rfl: 1 ??? Larissia 0.1-20 mg-mcg per tablet, , Disp: , Rfl: ??? ondansetron (ZOFRAN) 4 mg tablet, Take 1 tablet (4 mg total) by mouth every 6 (six) hours as needed for nausea or vomiting. (Patient not taking: Reported on 06/02/2021), Disp: 15 tablet, Rfl: 1 ??? oxyCODONE (ROXICODONE) 5 mg immediate release tablet, Take 1 tablet (5 mg total) by mouth every4 (four) hours as needed for pain. (Patient not taking: Reported on 06/02/2021), Disp: 20 tablet, Rfl: 0 Review of Systems: Review of Systems Constitutional: Negative for chills and fever. Respiratory: Negative for cough and shortness of breath. Cardiovascular: Negative for chest pain. Musculoskeletal: Positive for neck pain. Skin: Negative for rash. Neurological: Positive for tingling (Right arm). Past Medical History: Past Medical History: Diagnosis [...] Social History Occupational History ??? 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 Smoking status: Never Smoker ??? Smokeless tobacco: Never Used Substance and Sexual Activity ??? Alcohol use: No ??? Drug use: No ??? Sexual activity: Not on file Vital Signs: Height 165.1 cm (5' 5), weight 122.5 kg (270 lb), not currently . BMI Readings from Last 1 Encounters: 07/21/21 44.94 kg/m?? Valentina Curtis NP CH AND LANGUAGE ASSISTANT CH AND LANGUAGE ASSISTANT CH AND LANGUAGE ASSISTANT documented in this encounter Plan of Treatment Scheduled Orders Name Type Priority Associated Diagnoses Orde r Schedule EMG/NCV - Neurology Routine Right cervical radiculopathy Numbness and tingling of right upper extremity 1 Occurrences starting 06/02/2021 until 06/02/2022 documented as of this encounter Procedures Procedure Name Priority Date/Time Associated Diagnosis Comments TRIGGER POINT INJECTION Routine 06/02/2021 11:00 AM SPEECH AND LANGUAGE ASSISTANT Myalgia of muscle of neck documented in this encounter Results * MRI Cervical Spine WO Contrast (07/21/2021 11:55 AM SPEECH AND LANGUAGE ASSISTANT) Anatomical Region Laterality Modality Spine N/A Magnetic Resonan ce 07/21/2021 1:43 PM SPEECH AND LANGUAGE ASSISTANT Narrative 07/21/2021 1:53 PM SPEECH AND LANGUAGE ASSISTANT EXAM DESCRIPTION: ?? MRI CERVICAL SPINE WO [...] can be obtained as clinically indicated. ??Multilevel hksv-ov-tjnqxpeh endplate degenerative changes with marginal spur formation. [...] indents the ventral cord. ??Thickened ligamentum flavum. ??Frkg-os-tteikqxt spinal canal stenosis. ??Uncovertebral spurring and facet arthropathy with mild right and uuni-ia-xnfmbepz left neural foraminal narrowing. C7-T1: Anterolisthesis of C7 on T1 with unroofing of the disc. ??No significant spinal canal or neural foraminal narrowing. UPPER THORACIC: ?? Incompletely imaged. No high-grade spinal canal stenosis. IMPRESSION: ?? 1. ?? Multilevel ktfu-on-eadlxuji cervical spondylotic changes as described. ?? Spinal canal narrowing is most noticeable at C5-C6 and C6-C7. 2. ?? Varying degrees of bilateral neural foraminal stenosis and additional findings as discussed above. THIS IS AN ELECTRONICALLY VERIFIED FINAL REPORT 07/21/2021 1:53 PM - Electronically signed by ??Major Ruano D.O. AP: AP D: ??07/21/2021 1:53 PM T: ??07/21/2021 1:53 PM Report ID: [id number] Reading Location: ??[id number] Procedure Note Major Ruano, DO - 07/21/2021 EXAM DESCRIPTION: MRI CERVICAL [...] can be obtained as clinically indicated. Multilevel flev-tj-jwwukvbs endplate degenerative changes with marginal spur formation. [...] complex indents the ventral cord.Thickened ligamentum flavum. Mpou-hr-xmpmusth spinal canal stenosis. Uncovertebral spurring and facet arthropathy with mild right and wfbs-mz-gxiafonk left neural foraminal narrowing. C7-T1: Anterolisthesis of C7 on T1 with unroofing of the disc. Nosignificant spinal canal or neural foraminal narrowing. UPPER THORACIC: Incompletely imaged. No high-grade spinal canalstenosis. IMPRESSION: 1. Multilevel sgui-jw-sgqnjufm cervical spondylotic changes asdescribed. Spinal canal narrowing is most noticeable at C5-C6 and C6-C7. 2. Varying degrees of bilateral neural foraminal stenosis and additional findings as discussed above. THIS IS AN ELECTRONICALLY VERIFIED FINAL REPORT 07/21/2021 1:53 PM - Electronically signed by Major Ruano D.O. AP: AP Report ID: [id number] Reading Location: [place] [address] Valentina Curtis NP IMG MRI PROCEDURES Final Re sult * XR Spine Cervical W Flexion And Extension 6 or More Views (06/02/2021 11:23 AM SPEECH AND LANGUAGE ASSISTANT) Anatomical Region Laterality Modality Spine N/A Computed Radiogr aphy 06/02/2021 12:1 6 PM SPEECH AND LANGUAGE ASSISTANT Narrative 06/02/2021 3:30 PM SPEECH AND LANGUAGE ASSISTANT EXAM DESCRIPTION: ?XR SPINE CERVICAL W FLEXION [...] PM T: ??06/02/2021 1:52 PM Report ID: [id number] Reading Location: ??[id number] Procedure Note Sher Giron MD - 06/02/2021 EXAM DESCRIPTION: XR SPINE CERVICAL W FLEXION AND EXTENSION 6 OR MOREVIEWS REASON FOR STUDY: Right neck pain for 3 months. TECHNIQUE: AP, lateral, odontoid, flexion, extension, right oblique andleft oblique radiographic views acquired of the cervical spine. COMPARISON: None available FINDINGS: ALIGNMENT: There is trace anterolisthesis of C3 with respect to R6datrnrw evidence of instability on flexion or extension [...] Electronically signed by Sher DIETRICH Report ID: [id number] Reading Location: [place] [address] [place] Valenitna Curtis MRI SPECIAL PROCEDURES TECHNOLOGIST IMG XR PROCEDURES Final Res ult * Trigger Point Injection (06/02/2021 11:00 AM SPEECH AND LANGUAGE ASSISTANT) Narrative Valentina Curtis NP - 06/02/2021 11:00 AM SPEECH AND LANGUAGE ASSISTANT Valentina Curtis NP ? 06/03/2021 ??7:46 PM Trigger Point Injection Performed by: Valentina [...] Yes ?Indications: ??Myalgia Procedure Details: ??Location: ??R cervical paraspinal ??Local anesthetic: ??Ethyl chloride spray ??Ultrasound guidance: No ?Needle size: ??25 G ??Number of muscles: ??3 or more ??Approach: ??Posterior ?? 3 mL lidocaine 10 mg/mL (1 %); 120 mg methylPREDNISolone acetate 40 mg/mL ??Patient tolerance: ??Patient tolerated the procedure well with no immediate complications us Valentina Curtis MRI SPECIAL PROCEDURES TECHNOLOGIST IN CLINIC/BEDSIDE ORDERABLE S Final Result documented in this encounter Visit Diagnoses Diagnosis Right cervical radiculopathy 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 cervical vertebra-mild C5-C6, C6-C7 Protrusion of cervical intervertebral disc, C5-C6 Arthropathy of cervical facet joint-mild mid Spondylolisthesis of cervical region- grade 1 anterolisthesis of C3 on C4 and grade 1 retrolisthesis of C5 on C6. Grade 1 anterolisthesis of C7 on T1. Numbness and tingling of right upper extremity Myalgia of muscle of neck Cervicalgia Neck pain Cervicalgia Right cervical radiculopathy documented in this encounter Administered Medications Inactive Administered Medications - up to 3 most recent administrations Medication Order MAR Action Action Date Dose Rate Site lidocaine (XYLOCAINE) 10 mg/mL (1 %) injection 3 mL 3 mL, One-Time Injection, Starting on Nela 06/02/21 at 2125, For 1 dose, Indications: Administration of Local AnesthesiaIndications:Administrati on of Local Anesthesia Given 06/02/2021 9:25 PM SPEECH AND LANGUAGE ASSISTANT 3 mL methylPREDNISolone acetate (DEPO-medrol) injection 120 mg 120 mg, intra-articular, One-Time Injection, Starting on Nela 06/02/21 at 2125, For 1 doseIndications:Myalgia of muscle of neck Given 06/02/2021 9:25 PM SPEECH AND LANGUAGE ASSISTANT 120 mg documented in this encounter Orders Outpatient Referral Count Last Ordered Date Fir st Ordered Date AMB REFERRAL TO ORTHOPEDIC SURGERY 1 2020 documented in this encounter Care Teams Electrical Engineer Relationship Specialty Start Date End Date Keyonna Armstrong PA PCP - General Nurse Practitioner 06/20/18 documented as of this encounter
--- OUTSIDE RECORDS SUMMARY | 2024-07-10 23:18 | XMS_ITS | Encounter Summary ---
Author Organization [facility] Healthcare Address [address] [place] [address] Care Team Providers Care Product Engineer Name Role Phone Keyonna Armstrong Primary Care Provider + Encounter Details Date Type Department Care Team (Late st Contact Info) Description 08/07/2018 8:30 AM MATERIALS MGMT TECH - 08/07/2018 11:30 AM [facility] Surgery [facility] Operating Room [facility] [address] [place] [id number] Elli Hernandez MD PhD [address] [facility] [address] [place], [place] [id number] LAPAROSCOPIC CHOLECYSTECTOMY WITH CHOLANGIOGRAMS Surgery Details Date/Time Status Location OR Service Patient Class Case Cl ass Case Type Trauma Case? 08/07/2018 8:30 AM Posted [facility] CAM OR POD 4 C Minimally Invasive Surgery Outpatient Elective Panel 1 Procedure LRB Anes Op Region Wound Class Comments LAPAROSCOPIC CHOLECYSTECTOMY WITH CHOLANGIOGRAMS N/A General Abdomen Class II - C lean Contaminated Surgeon Surgeon Role Service Panel Elli Hrenandez MD PhD Primary Minimally Invasi ve Surgery 1 documented in this encounter Social History Tobacco Use Types Packs/Day Years Used Date Smoking Tobacco: Never Smokeless Tobacco: Never Alcohol Use Standard Drinks/Week Comments No 0 (1 standard drink = 0.6 oz pur e alcohol) Comments No Sex and Gender Information Value Date Recorded Sex Assigned at Not on file Legal Sex Female 6:41 PM MATERIALS MGMT TECH Gender Identity Not on file Sexual Orientation Not on file documented as of this encounter Last Filed Vital Signs Vital Sign Reading Time Taken Comments Blood Pressure 144/83 08/07/2018 11:30 AM MATERIALS MGMT TECH Pulse 102 08/07/2018 11:30 AM MATERIALS MGMT TECH Temperature 36 ??C (96.8 ??F) 08/07/2018 11:20 AM MATERIALS MGMT TECH Respiratory Rate 25 08/07/2018 11:30 AM MATERIALS MGMT TECH Oxygen Saturation 93% 08/07/2018 11:30 AM MATERIALS MGMT TECH Inhaled Oxygen Concentration - - Weight 131.5 kg (290 lb) 07/29/2018 4:00 PM MATERIALS MGMT TECH Height 165.1 cm (5' 5) 07/29/2018 4:00 PM MATERIALS MGMT TECH Body Mass Index 48.26 07/29/2018 4:00 PM MATERIALS MGMT TECH documented in this encounter Medications at Time of Discharge hydroCHLOROthiaz tan (HYDRODIURIL) 25 mg tablet Take 1 tablet (25 mg total) by mouth every morning 0 05/02/2018 lisinopril (PRINIVIL,ZESTRI L) 40 mg tablet Take [...] Take 1 tablet by mouth every morning venlafaxine XR (EFFEXOR-XR) 75 mg 24 hr capsule Take 3 capsules (225 mg total) by mouth daily zolpidem (AMBIEN) 10 mg tablet TAKE 1 TABLET BY MOUTH AT BEDTIME NEEDED 1 06/03/2018 cholecalciferol (VITAMIN D-3) 5,000 unit capsule Take 5,000 Units by mouth every morning 05/28/2023 ENPRESSE 50-30 (6)/75-40 (5)/125-30(10) per tablet Take 1 tablet by mouth nightly. 0 04/08/2018 05/30/2021 glucosamine/dominga dr satya monroy (OSTEO BI-FLEX ORAL) Take 1 tablet by mouth every morning 05/28/2023 LORazepam (ATIVAN) 0.5 mg tablet Take 0.5 [...] 4 (four) hours as needed for pain. 15 tablet 08/07/2018 08/09/[address] (PROTONIX) 40 mg EC tablet Take 40 mg by mouth every morning. 3 06/11/2018 05/30/2021 VENTOLIN HFA 90 mcg/actuation inhaler TAKE 2 PUFFS BY MOUTH EVERY 4 HOURS NEEDED FOR WHEEZING 1 06/10/2018 11/27/2023 documented as of this encounter Ordered Prescriptions Prescription Sig Dispense Quantity Refills Last Filled Start Date End Date ondansetron (ZOFRAN) 4 mg tablet Take 1 tablet (4 mg total) by mouth every 6 (six) hours as needed for nausea or vomiting. 15 tablet 1 08/07/2018 11/27/2023 oxyCODONE (ROXICODONE) 5 mg immediate release tabletIndications: Pain Take 1 tablet (5 mg total) by mouth every 4 (four) hours as needed for pain. 15 tablet 08/07/2018 08/09/2018 documented in this encounter Discharge Disposition Disposition Code Departure Means Destination Discharge to home or self care documented in this encounter H&P Notes * Elli Hernandez MD PhD - 08/07/2018 8:25 AM CST I have reviewed the H&P, examined the patient, and endorse the findings as written. Plan of Care : Based on the above findings, I consider Veronica Evangelista to be an acceptable risk for: Procedure(s): LAPAROSCOPIC CHOLECYSTECTOMY WITH CHOLANGIOGRAMS RIALS MGMT TECH Source Note - Katherine Corey NP - 08/02/2018 11:23 AM MATERIALS MGMT TECH [facility] Preoperative Evaluation Record Telephone Preoperative Evaluation ([facility]) - TELEPHONE ONLY, NO PHYSICAL EXAM [...] ) - other. Pertinent negatives: CAD ; NM ; CABG ; valvular heart disease; valve [...] Procedure Laterality Date ??? CARLOS MANUEL-EN-Y PROCEDURE [address] Lafleur OB History No [...] Medication protocol when under care of a BONE COOKING OPERATOR Planned anesthesia: General Team communication plan: oral [...] and agree to proceed. All questions answered. RIALS MGMT TECH RIALS MGMT TECH documented in this encounter Miscellaneous Notes * Perioperative Nursing Note - Dariana Vu RN - 08/07/2018 4:[address] Lewis here. PT. States she feels better and wants to go home. She states she is getting her breath and not like before. States pain is fine and tolerable to abdomen. Abdomen lap sites CDI, no drainage noted. Denies nausea. Steady gait noted with movement getting dressed. Dr. Lewis with ok to DCto home. RIALS MGMT TECH * Perioperative Nursing Note - Dariana Vu RN - 08/07/2018 3:51 PM MATERIALS MGMT TECH IV metoprolol given as ordered. Pt in stretcher with telemetry on ST. Still states hard to get my breath. Dr. Lewis aware and here to assess. HOB 30, o2sat RA 100%. RIALS MGMT TECH * Perioperative Nursing Note - Dariana Vu RN - 08/07/2018 3:12 PM MATERIALS MGMT TECH Pt. C/o SOB and pain better. BS decreased throughout O2 sat 98 % RA. Pt. States she just cant seemto get her breath. Dr. Lewis here to assess with orders received. Pt. Had beein up in wheelchair to void. Pt. Back to stretcher with telemetry on. Tele with ST. Left IV flushed with 0.9 NS, now infusing from saline lock for going to bathroom. RIALS MGMT TECH * Perioperative Nursing Note - Dariana Vu RN - 08/07/2018 1:58 PM MATERIALS MGMT TECH Denies nausea. Po pain med ordered per Dr. Lewis, waiting for to be in pyxis as pt more awake. Pain is to abdomen and back.Abdopmen lap sites x 5 cdi , abdomen x 4 and umbilicus x 1. C and DB encouraged. Taking po ice chips. RIALS MGMT TECH * Op Note - Elli Hernandez MD PhD - 08/07/2018 9:05 AM CST Operative Report SURGEON: Elli Hernandez MD PhD SURGICAL TEAM: Surgeon(s) and Role: * Elli Hernandez MD PhD - Primary DATE OF SURGERY : 08/07/2018 PREOPERATIVE DIAGNOSIS: Pre-op Diagnosis * Cholecystitis [K81.9] POSTOPERATIVE DIAGNOSIS: Post-op Diagnosis * Cholecystitis [K81.9] PROCEDURE: LAPAROSCOPIC CHOLECYSTECTOMY WITH CHOLANGIOGRAMS INDICATION FOR PROCEDURE: This is a 47 y.o. year-old female who presented with a history of gallstone pancreatitis at an outside hospital. The patient is an appropriate candidate for laparoscopic cholecystectomy with intraoperative cholangiogram. The risks, benefits, and alternatives were discussed with her and she wished to proceed. Informed consent was obtained. Findings: She had moderate adhesions of the omentum to the anterior abdominal wall. We spent about 30 minuteslysing these adhesions to be able to get our ports in. We obtained a critical view and identified one duct and two arteries going into the gallbladder. We performed a cholangiogram due to her historyof gallstone pancreatitis and the two arteries. We identified the cystic duct and the CBD with bileemptying into the duodenum. There were no filling defects. ANESTHESIA: General IMPLANTS: Nothing was implanted during the procedure OPERATIVE DETAILS After informed consent was obtained, the patient was brought into the operating room and placed in the supine position on the operating table. Sequential compression devices were applied for DVT prophylaxis. Preoperative antibiotics were given. The abdomen was prepped and draped in the usual sterile fashion. A surgical timeout was performed. We gained access to the abdomen in the right upper quadrant using the veress needle. The opening pressure was 7 mmHg. We insufflated to a pressure of 15 mmHg. We then removed the veress needle and placed an optiview port in that location. With the camera through the port there was no evidence of injury from the veress needle or the port placement. We per formed a brief inspection of the abdomen and found adhesions of the omentum to the anterior abdominal wall. We then placed an additional port in the RUQ under direct vision. We used a combination of blunt and sharp dissection to clear off the anterior abdominal wall to be able to get our camera port in. We then proceeded to place our remaining ports under direct vision for a total of four ports. We injected local anesethetic at each port site prior to incision. We retracted the gallbladder cephalad. There were adhesions of the omentum to the gallbladder whichI took down using electrocautery. We dissected carefully in the area of the triangle of Calot untilwe identified the cystic duct and the cystic artery. We cleared out the hepatocystic triangle and took the gallbladder off the liver at least 1[address] in order to obtain our critical view. At that point we had identified two arteries. We then placed a clip on the gallbladder side of the cystic duct. I made a ductotomy and introduced the catheter into the cystic duct. We performed a cholangiogram and identified the cystic duct emptying into the CBD. Contrast drained directly into the duodenum with no filling defects. We then placed two clips on the patient side of the cystic duct. We placed one clip on the patient side and one clip on the gallbladder side of the two cystic arteries. Wedivided these structures in between the clips. We then removed the gallbladder from the liver usingthe electrocautery. The gallbladder was placed in a specimen retrieval bag. We removed the gallbladder from the epigastric port site. This was quite challenging as the gallbladder was large and contained stones. We closed the fascia at the epigastric port site using two 0-vicryl interrupted stitches. The skin at all port sites was closed using 4-0 monocryl. Exofin was applied to all wounds. The patient was awakened from anesthesia and transferred to the PACU in stable condition. The sponge and instrument counts were correct x2. Estimated Blood Loss: No blood loss documented. Intraoperative Fluids: Per anesthesia record Specimens: Order Name Source Comment Collection Info Order Time SURGICAL PATHOLOGY Gallbladder Collected By: Elli Hernandez MD PhD 08/07/2018 10:20 AM Complications: None Condition on Discharge from the operating room was stable Elli Hernandez MD PhD Date: 08/07/2018 Time: 11:11 AM TEACHING ATTESTATION : I was present and directly participated in the entire procedure (including opening and closing). I, Elli Hernandez, was present and participated in the entire procedure. RIALS MGMT TECH * Pre-Procedure Instructions - Katherine Corey NP - 08/02/2018 11:18 AM CST [facility] CP[facility] Location: [facility] The night before your surgery: * Do not eat or drink anything after midnight. This includes candy, mint, gums, chewable antacids (TUMS, Rolaids) and cough drops * Do not smoke after midnight the night before surgery. It is best to stop smoking now to improve your health. The morning of your surgery: * You may brush your teeth and rinse your mouth out. * Do not glue your dentures. * Do not wear jewelry, body piercings, makeup, hairpins, false eyelashes or contact lenses to the hospital. * Leave any valuables at home or with your family. You may want to bring a credit card if you want to use our Mobile [facility] for your discharge medications. Outpatient Surgery: * You must have a responsible adult drive you home and stay with you for 24 hours after your surgery * You cannot be alone at home or in a hotel * Please call your surgeon's office if you do not have someone to drive you home and/or stay with you after surgery * Please bring any items you may need to spend the night in the hospital. Sometimes patients need to be cared for in the hospital overnight. If you have Sleep Apnea (ZENON): * Bring your CPAP/BiPAP/VPAP machine to the hospital the day of your surgery * For a few days after your surgery, you will need to wear your CPAP/ BiPAP/VPAP machine any time your are sleeping. This includes when you take a nap. Instructions For Your Medications: Pre-Surgery Instructions: Medication Instructions ??? cholecalciferol (VITAMIN D-3) 5,000 unit capsule Don't take on day of surgery ??? ENPRESSE 50-30 (6)/75-40 (5)/125-30(10) per tablet Take the night before surgery ??? glucosamine/chondr hernadez A sod (OSTEO BI-FLEX ORAL) Stop taking 7 days prior to surgery ??? hydroCHLOROthiazide (HYDRODIURIL) 25 mg tablet Don't take on day of surgery ??? lisinopril (PRINIVIL,ZESTRIL) 40 mg tablet Don't take on day of surgery ??? LORazepam (ATIVAN) 0.5 mg tablet Take the night before surgery ??? metFORMIN (GLUCOPHAGE) 500 mg tablet Don't take on day of surgery ??? metoprolol XL (TOPROL-XL) 100 mg 24 hr tablet Take the night before surgery ??? multivitamin tablet Don't take on day of surgery ??? pantoprazole DR (PROTONIX) 40 mg EC tablet Take morning of surgery ??? venlafaxine XR (EFFEXOR-XR) 75 mg 24 hr capsule Take the night before surgery ??? VENTOLIN HFA 90 mcg/actuation inhaler Take on day of surgery if needed ??? zolpidem (AMBIEN) 10 mg tablet Take the night before surgery - if needed for sleep General Instructions For Medications: ?? Stop all of these medications 5 days prior to your surgery: excedrin, motrin, advil, ibuprofen, aleve, naproxen, celebrex, celecoxib, meloxicam ?? Stop all of these medications 7-14 days prior to your surgery: Vitamin E, Fish Oil (Lovaza, Billings 3), Herbal medicines, Diet Pills ?? If you use inhalers, please bring them with you on the day of your procedure. ?? If you have pain, you may take tylenol (acetaminophen). Do not take more than 6 tablets or 3000 mg (3 g) within a 24 period. Call your surgeon and the CPAP clinic if any of the following happens before surgery: ?? Any changes in your health ?? You have a fever ?? You have any signs of an infection (chest, urinary tract or tooth) ?? You have been to the Emergency Room or were in the hospital ?? You have started taking any new medications ?? You have questions about a bowel prep or special diet before surgery RIALS MGMT TECH * Pre-Procedure Instructions - Soo Palmer RN - 07/29/2018 4:08 PM MATERIALS MGMT TECH PRE-SURGICAL INSTRUCTIONS ?? Surgery location provided to patient ?? Arrival time and surgical time will be provided by your surgeon. ?? Bring a current list of all medications. ?? Bring your ID and insurance card with you. Antiseptic/antibacterial soap will decrease the amount of germs on your skin. The chance of gettingan infection will reduce so it is important to minimize risk for infection by doing the following: ?? Change bed linens the night before surgery so you are sleeping in clean sheets . ?? Shower the evening before and the morning of surgery with an antibacterial soap such as dial or chlorhexidine. ?? Wash your hair and face with your regular shampoo ( no conditioners) and facial cleanser. Do notuse the antiseptic soap on your face or hair. ?? Do not shave the area where surgery is to be performed 24 hours prior to surgery. ?? No lotions, powders, creams, hair products, or Vaseline the morning of surgery ?? Wear clean loose comfortable clothes the morning of surgery If your surgeon's office has not notified you of your surgery time within 2 days of your surgery, please call [phone] and ask for your surgeon's office Dr. Hernandez RIALS MGMT TECH documented in this encounter Plan of Treatment Not on file documented as of this encounter Procedures Procedure Name Priority Date/Time Associated Diagnosis Comments FL FLUOROSCOPY < 1 HOUR IP Routine 08/07/2018 10:15 AM MATERIALS MGMT TECH SURGICAL PATHOLOGY Routine 08/07/2018 9: 51 AM MATERIALS MGMT TECH Cholecystitis LAPAROSCOPIC CHOLECYSTECTOMY WITH CHOLANGIOGRAMS 08/07/2018 8:25 AM MATERIALS MGMT TECH Cholecystitis POCT GLUCOSE DEVICE Routine Gen Lab 08/07/2018 8 :05 AM MATERIALS MGMT TECH POCT HCG, URINE Routine 08/07/2018 7:52 AM MATERIALS MGMT TECH documented in this encounter Results * FL Fluoroscopy < 1 Hour (08/07/2018 10:15 AM MATERIALS MGMT TECH) Narrative RAD_PACS_[facility] - 08/07/2018 10:39 AM MATERIALS MGMT TECH The images from this study are not interpreted by Radiology. ??Please refer to the physician's procedure / OR operative note. us Elli Hernandez MD PhD IMG FLUOROSCOPY PROCEDURE S Final Result RAD_PACS_[facility] * Surgical pathology (08/07/2018 9:51 AM MATERIALS MGMT TECH) Tissue (Gallbladder) 08/07/2018 9:51 AM MATERIALS MGMT TECH Narrative PATHOLOGY [facility] - 08/12/2018 4:48 PM MATERIALS MGMT TECH EPIC results best viewed via link to PDF [facility] Karlie Marlow Laboratory of Surgical Pathology [facility] [address] SURGICAL PATHOLOGY REPORT FINAL Patient Name: ?? VERONICA EVANGELISTA Gender: ??F : ??1970 (Age: 47) Address: ??[address] [place], [place] ??[address] Hospital #: ??[id number] Taken:08/07/2018 Received:08/07/2018 Reported: 08/12/2018 Patient Type: [facility] SDS ?? Service: Surgery Location: [facility] Physician(s): ??Elli Hernandez M.D. Diagnosis: Gallbladder, laparoscopic cholecystectomy ? - Chronic cholecystitis with marked muscular hypertrophy - Focal cholesterolosis - Cholelithiasis - No evidence of dysplasia or malignancy jhr/08/12/2018 16:48 By this signature, I attest that the above diagnosis is based upon my personal examination of the slides(and/or other material indicated in the diagnosis). Darrell Thomas MD Report Electronically Reviewed and Signed Out By ??Darrell Thomas MD 08/12/2018 16:48:11 Microscopic Description and Comment: Microscopic examination substantiates the above cited diagnosis. History: The patient is a 47-year-old woman who presents with cholecystitis. ??Operative procedure: ??Laparoscopic cholecystectomy with cholangiogram. Specimen(s) Received: A: Gallbladder Gross Description: Received in a single formalin filled container, labeled with Veronica Evangelista and gallbladder is a 10.8 x 3.5 x 3.2 cm cholecystectomy specimen. ??The serosa is green mojica and smooth. ??The gallbladder is opened, revealing pale green velvety mucosal surfaces containing a moderate amount of trabeculation. ??The gallbladder wall measures 0.3 cm in average thickness. ??The gallbladder contains multiple multifaceted green mojica choleliths, ranging size from 1.0 x 1.0 x 0.8 cm to 0.1 x 0.1 x 0.1 cm. ??The cystic duct remnant is closed with a plastic clip but is otherwise patent. ??Labeled A1- promotional representative section of gallbladder body and fundus and shave of cystic duct remnant. ??Jar 2. rw/08/08/2018 10:38 Mauricio Oliveira MS, PA([facility]) By this signature, I attest that the above diagnosis is based upon my personal examination of the slides(and/or other material). The performance characteristics of some immunohistochemical stains, fluorescence in-situ hybridization tests and immunophenotyping by flow cytometry cited in this report (if any) were determined by the Surgical Pathology Department at [facility] as part of an ongoing housing quality standard inspector program and in compliance with federally mandated regulations drawn from the Clinical Laboratory Improvement Act of 1988 (CLIA '88). ??Some of these tests rely on the use of analyte specific reagents and are subject to specific labeling requirements by the US Food and Drug Administration. ??Such diagnostic tests may only be performed in a facility that is certified by the Department of Health and Human Services as a high complexity laboratory under CLIA '88. ??The FDA has determined that such clearance or approval is not necessary. ??This test is used for clinical purposes. ??It should not be regarded as investigational or for research. ??Nevertheless, federal rules concerning the medical use of analyte specific reagents require that the following disclaimer be attached to the report: This test was developed and its performance characteristics determined by the Surgical Pathology Department of [facility]. ??It has not been cleared or approved by the U. S. Food and Drug Administration. IMAGES AND SCANNED DOCUMENTS, IF INCLUDED, ONLY VIEWABLE IN PDF VERSION OF REPORT Elli Hernandez MD PhD LAB PATHOLOGY ORDERABLES Final Result Performing Organization Address City/[facility]/ZIP Co de Phone Number PATHOLOGY [facility] [address] Floor [place], [place] [phone] * POCT glucose (08/07/2018 8:05 AM MATERIALS MGMT TECH) Pathologist [facility] Glucose, POC 94 70 - 199 mg/dL [facility] Blood specimen (specimen) 08/07/2018 8:05 AM MATERIALS MGMT TECH 08/07/2018 8:05 AM MATERIALS MGMT TECH Narrative [facility] - 08/07/2018 8:06 AM MATERIALS MGMT TECH Elli Hernandez MD PhD LAB POCT ORDERABLES - DEV ICE Final Result [facility] Department [place] [address] * POCT hCG, urine (08/07/2018 7:52 AM MATERIALS MGMT TECH) HCG, ur, POC Negative Lot Number [id number] QC Backgroud Clear Acceptable QC Control Line Acceptable Urine 08/07/2018 7:52 AM MATERIALS MGMT TECH Celso Klein MD POINT OF CARE TEST ORDERABL ES Final Result documented in this encounter Visit Diagnoses Diagnosis Cholecystitis- Primary Cholecystitis, unspecified Cholecystitis Cholecystitis, unspecified documented in this encounter Admitting Diagnoses Diagnosis Cholecystitis Cholecystitis, unspecified documented in this encounter Administered Medications Inactive Administered Medications - up to 3 most recent administrations Medication Order MAR Action Action Date Dose Rate Site acetaminophen (TYLENOL) tablet 1,000 mg 1,000 mg, oral, Once, On Sun08/07/18 at 1200, For 1 dose, Phase I, When able to tolerate PO., Indications: PainIndications:Pain Given 08/07/2018 4:12 PM MATERIALS MGMT TECH 1,000 mg bupivacaine (MARCAINE) 0.5 % (5 mg/mL) preservative free injection As needed, Starting on Sun08/07/18 at 0915, Intra-Op Given 08/07/2018 9:15 AM MATERIALS MGMT TECH 20 mL fentaNYL (SUBLIMAZE) preservative free injection 50 mcg 50 mcg, intravenous, Once as needed, uncontrolled pain on PACU admission, Starting on Sun08/07/18 at 1118, For 1 dose, Phase I, Then proceed to PACU 1st line analgesic., Indications: PainIndications:Pain Given 08/07/2018 11:42 AM MATERIALS MGMT TECH 50 mcg haloperidol (HALDOL) 5 mg/mL injection - ADS Override Pull Starting on Sun08/07/18 at 1155, For 1 dose, IVAN DENG: cabinet override haloperidol (HALDOL) injection 1 mg 1 mg, intravenous, Administer over 5 Minutes, Once, On Sun08/07/18 at 1230, For 1 dose Given 08/07/2018 11:59 AM MATERIALS MGMT TECH 1 mg HYDROmorphone (DILAUDID) injection 0.2 mg 0.2 mg, intravenous, Administer over 2 Minutes, Every 10 min PRN, 1st line for pain, Starting on Sun08/07/18 at 1118, Phase I, Notify Anesthesiologist if total PACU dose reaches 2 mg and pain score 5/10 or more., Indications: PainIndications:Pain Given 08/07/2018 12:43 PM MATERIALS MGMT TECH 0.2 mg Given 08/07/2018 12:24 PM MATERIALS MGMT TECH 0.2 mg Given 08/07/2018 11:50 AM MATERIALS MGMT TECH 0.2 mg iothalamate meglumine (CONRAY) 60 % injection As needed, Starting on Sun08/07/18 at 0914, Intra-Op Given 08/07/2018 9:14 AM MATERIALS MGMT TECH 50 mL Lactated Ringer's (LR) infusion 30 mL/hr, intravenous, Continuous, Starting on Sun08/07/18 at 0830, Pre-Op New Bag 08/07/2018 3:41 PM MATERIALS MGMT TECH 30 mL/hr 30 mL/h r Lactated Ringer's (LR) infusion 30 mL/hr, intravenous, Continuous, Starting on Sun08/07/18 at 0830, Pre-Op New Bag 08/07/2018 12:38 PM MATERIALS MGMT TECH 30 mL/hr 30 mL/ hr New Bag 08/07/2018 8:25 AM MATERIALS MGMT TECH New Bag 08/07/2018 8:10 AM MATERIALS MGMT TECH 30 mL/hr 30 mL/hr Le ft Antecubital metoclopramide (REGLAN) injection 10 mg 10 mg, intravenous, Administer over 1 Minutes, Once as needed, nausea, vomiting, Starting on Sun08/07/18 at 1118, For 1 dose, Phase I, Doses up to 10 mg can be given IV push undiluted over 1 to 2 minutes; higher doses (>10 mg) to be diluted in 50 mL of compatible solution (preferably NS) and given IVPB over at least 15 minutes. Note: Rapid IV administration may be associated with a transient (but intense) feeling of anxiety and restlessness, followed by drowsiness. Given 08/07/2018 11:30 AM MATERIALS MGMT TECH 10 mg metoprolol (LOPRESSOR) injection 2.5 mg 2.5 mg, intravenous, Administer over 1 Minutes, Every 15 min PRN, other, prn HR>110, hold for SBP<90, Starting on Sun08/07/18 at 1512, For 2 doses Given 08/07/2018 4:00 PM MATERIALS MGMT TECH 2.5 mg Given 08/07/2018 3:44 PM MATERIALS MGMT TECH 2.5 mg ondansetron (ZOFRAN) injection 4 mg 4 mg, intravenous, Administer over 2 Minutes, Once, On Sun08/07/18 at 0830, For 1 dose, Pre-Op, Indications: Prevention of Post-Operative Nausea and VomitingIndications:Pre vention of Post-Operative Nausea and Vomiting Given 08/07/2018 8:10 AM MATERIALS MGMT TECH 4 mg oxyCODONE (ROXICODONE) tablet 5 mg 5 mg, oral, Once, On Sun08/07/18 at 1430, For 1 dose, Indications: PainIndications:Pain Given 08/07/2018 2:05 PM MATERIALS MGMT TECH 5 mg prochlorperazine (COMPAZINE) injection 10 mg 10 mg, intravenous, Administer over 2 Minutes, Once as needed, nausea, vomiting, Starting on Sun08/07/18 at 1227, For 1 dose, Phase I, If nausea/vomiting not relieved by ondansetron within 30 minutes or if ondansetron has been given within the last 6 hours. Given 08/07/2018 12:30 PM MATERIALS MGMT TECH 10 mg scopolamine patch 72 hour 1 patch 1 patch, transdermal, Administer over 72 Hours, Once, On Sun08/07/18 at 0830, For 1 dose, Pre-Op, Indications: Prevention of Post-Operative Nausea and VomitingIndications:Pre vention of Post-Operative Nausea and Vomiting Medication Applied 08/07/2018 8:01 AM MATERIALS MGMT TECH 1 patch Behind Right Ear sodium chloride 0.9 % irrigation As needed, Starting on Sun08/07/18 at 0752, Intra-Op Given 08/07/2018 7:52 AM MATERIALS MGMT TECH 1,000 mL sodium chloride 0.9 % irrigation As needed, Starting on Sun08/07/18 at 0916, Intra-Op Given 08/07/2018 9:16 AM MATERIALS MGMT TECH 1,000 mL sterile water irrigation As needed, Starting on Sun08/07/18 at 0918, Intra-Op Given 08/07/2018 9:18 AM MATERIALS MGMT TECH 1,000 mL documented in this encounter Discontinued Medications Medication Sig Discontinue Reason Start Date End Da te LORazepam (ATIVAN) 0.5 mg tablet Take by mouth 3 (three) times a day as needed. Error 05/29/2018 07/29/2018 metoprolol XL (TOPROL-XL) 50 mg 24 hr tablet Take 50 mg by mouth every morning. Error 05/30/2018 07/29/2018 venlafaxine XR (EFFEXOR-XR) 75 mg 24 hr capsule TAKE ONE CAPSULE BY MOUTH EVERY MORNING AND TAKE 2 CAPSULES EVERY EVENING Error 04/16/2018 07/29/2018 documented as of this encounter Historical Medications * This list may reflect changes made after this encounter. multivitamin tablet Take 1 tablet by mouth every morning venlafaxine XR (EFFEXOR-XR) 75 mg 24 hr capsule Take 3 capsules (225 mg total) by mouth daily glucosamine/dominga dr satya monroy (OSTEO BI-FLEX ORAL) Take 1 tablet by mouth every morning 05/28/2023 LORazepam (ATIVAN) 0.5 mg tablet Take 0.5 mg by mouth nightly. 05/30/2021 added in this encounter Active and Recently Administered Medications Times are shown in MATERIALS MGMT TECH. Scheduled Medication Order 08/05/2018 08/06/2018 08/07/2018 acetaminophen (TYLENOL) tablet 1,000 mg (COMPLETED) 1,000 mg, oral, Once, On Sun08/07/18 at 1200, For 1 dose, Phase I, When able to tolerate PO., Indications: Pain 1612 (Given - Provid er: Dariana Vu RN) haloperidol (HALDOL) injection 1 mg (COMPLETED) 1 mg, intravenous, Administer over 5 Minutes, Once, On Sun08/07/18 at 1230, For 1 dose 1159 (Given - Provid er: Ivan Deng RN)1230 (Due) ondansetron (ZOFRAN) injection 4 mg (COMPLETED) 4 mg, intravenous, Administer over 2 Minutes, Once, On Sun08/07/18 at 0830, For 1 dose, Pre-Op, Indications: Prevention of Post-Operative Nausea and Vomiting 0810 (Given - Provid er: Casie Nieves RN) oxyCODONE (ROXICODONE) tablet 5 mg (COMPLETED) 5 mg, oral, Once, On Sun08/07/18 at 1430, For 1 dose, Indications: Pain 1405 (Given - Provid er: Dariana uV RN) scopolamine patch 72 hour 1 patch 1 patch, transdermal, Administer over 72 Hours, Once, On Sun08/07/18 at 0830, For 1 dose, Pre-Op, Indications: Prevention of Post-Operative Nausea and Vomiting 0801 (Medication Zoraida lied - Provider: Casie Nieves RN)1641 (Due: Medication Removed - Provider: Automatic Discharge Provider - Comment: Time automatically adjusted from order being discontinued) Continuous Medication Order 08/05/2018 08/06/2018 08/07/2018 Lactated Ringer's (LR) infusion 30 mL/hr, intravenous, Continuous, Starting on Sun08/07/18 at 0830, Pre-Op 1541 (New Bag - Prov ider: Dariana Vu RN)1621 (Stopped - Provider: Dariana Vu RN) Lactated Ringer's (LR) infusion 30 mL/hr, intravenous, Continuous, Starting on Sun08/07/18 at 0830, Pre-Op 0810 (New Bag - Prov ider: Casie Nieves RN)0825 (New Bag - Provider: Manuel Richey MD)1238 (New Bag - Provider: Ivan Deng RN)1540 (Stopped - Provider: Dariana Vu RN) PRN Medication Order 08/05/2018 08/06/2018 08/07/2018 bupivacaine (MARCAINE) 0.5 % (5 mg/mL) preservative free injection (CANCELED) As needed, Starting on Sun08/07/18 at 0915, Intra-Op 0915 (Given - Provid er: Elli Hernandez MD PhD) fentaNYL (SUBLIMAZE) preservative free injection 50 mcg (COMPLETED) 50 mcg, intravenous, Once as needed, uncontrolled pain on PACU admission, Starting on Sun08/07/18 at 1118, For 1 dose, Phase I, Then proceed to PACU 1st line analgesic., Indications: Pain 1142 (Given - Provid er: Ivan Deng RN) HYDROmorphone (DILAUDID) injection 0.2 mg (CANCELED) 0.2 mg, intravenous, Administer over 2 Minutes, Every 10 min PRN, 1st line for pain, Starting on Sun08/07/18 at 1118, Phase I, Notify Anesthesiologist if total PACU dose reaches 2 mg and pain score 5/10 or more., Indications: Pain 1150 (Given - Provid er: Ivan Deng RN)1224 (Given - Provider: Ivan Deng RN)1243 (Given - Provider: Ivan Deng RN) iothalamate meglumine (CONRAY) 60 % injection (CANCELED) As needed, Starting on Sun08/07/18 at 0914, Intra-Op 0914 (Given - Provid er: Elli Hernanedz MD PhD) metoclopramide (REGLAN) injection 10 mg (COMPLETED) 10 mg, intravenous, Administer over 1 Minutes, Once as needed, nausea, vomiting, Starting on Sun08/07/18 at 1118, For 1 dose, Phase I, Doses up to 10 mg can be given IV push undiluted over 1 to 2 minutes; higher doses (>10 mg) to be diluted in 50 mL of compatible solution (preferably NS) and given IVPB over at least 15 minutes. Note: Rapid IV administration may be associated with a transient (but intense) feeling of anxiety and restlessness, followed by drowsiness. 1130 (Given - Provid er: Ivan Deng RN) metoprolol (LOPRESSOR) injection 2.5 mg (COMPLETED) 2.5 mg, intravenous, Administer over 1 Minutes, Every 15 min PRN, other, prn HR>110, hold for SBP<90, Starting on Sun08/07/18 at 1512, For 2 doses 1544 (Given - Provid er: Dariana Vu RN)1600 (Given - Provider: Dariana Vu RN) prochlorperazine (COMPAZINE) injection 10 mg (COMPLETED) 10 mg, intravenous, Administer over 2 Minutes, Once as needed, nausea, vomiting, Starting on Sun08/07/18 at 1227, For 1 dose, Phase I, If nausea/vomiting not relieved by ondansetron within 30 minutes or if ondansetron has been given within the last 6 hours. 1230 (Given - Provid er: Ivan Deng RN) sodium chloride 0.9 % irrigation (CANCELED) As needed, Starting on Sun08/07/18 at 0752, Intra-Op 0752 (Given - Provid er: Elli Hernandez MD PhD) sodium chloride 0.9 % irrigation (CANCELED) As needed, Starting on Sun08/07/18 at 0916, Intra-Op 0916 (Given - Provid er: Elli Henrandez MD PhD - Comment: wound irrigation.) sterile water irrigation (CANCELED) As needed, Starting on Sun08/07/18 at 0918, Intra-Op 0918 (Given - Provid er: Elli Hernandez MD PhD - Comment: instument soak.) documented in this encounter Orders Medications Ordered That Peng ht Not Have Been Administered Count Last Ordered Date First Ordered Date naloxone (NARCAN) 0.4 mg/mL injection 0.04-0.4 mg 1 08/07/2018 sodium chloride 0.9% flush 0.5-20 mL 3 07/23 Diet Count Last Ordered Date First Orde red Date ADULT DISCHARGE DIET 1 08/07/2018 Nursing Count Last Ordered Date First Orde red Date DISCHARGE ACTIVITY 1 08/07/2018 DISCHARGE CALL PROVIDER 6 08/07/2018 DISCHARGE DRESSING 2 08/07/2018 documented in this encounter Care Teams Product Engineer Relationship Specialty Start Date End Date Keyonna Armstrong PA PCP - General Nurse Practitioner 06/20/18 documented as of this encounter
--- OUTSIDE RECORDS SUMMARY | 2024-07-10 23:18 | XMS_ITS | Encounter Summary ---
Author Organization [facility] Address [address] [place] [address] Phone Care Team Providers Care Retail Center Receptionist Name Role Phone Keyonna Armstrong Primary Care Provider + Encounter Details Date Type Department Care Team (Late st Contact Info) Description 08/09/2018 Orders Only [facility] Surgery [address] [facility] Advanced Medicine 8th [place] [address] [place] [id number] Elli Hernandez MD PhD [address] [place] [address] Social History Tobacco Use Types Packs/Day Years Used Date Smoking Tobacco: Never Smokeless Tobacco: Never Alcohol Use Standard Drinks/Week Comments No 0 (1 standard drink = 0.6 oz pur e alcohol) Comments No Sex and Gender Information Value Date Recorded Sex Assigned at Not on file Legal Sex Female 6:41 PM PEST CONTROL WORKER Gender Identity Not on file Sexual Orientation Not on file documented as of this encounter Ordered Prescriptions Prescription Sig Dispense Quantity Refills Last Filled Start Date End Date oxyCODONE (ROXICODONE) 5 mg immediate release tabletIndications: Pain Take 1 tablet (5 mg total) by mouth every 4 (four) hours as needed for pain. 20 tablet 08/09/2018 05/28/2023 documented in this encounter Progress Notes * Adri Disla RN - 08/09/2018 12:39 PM CST Refill provided on Oxycodone. 20 tablets given CONTROL WORKER documented in this encounter Plan of Treatment Not on file documented as of this encounter Visit Diagnoses Not on filedocumented in this encounter Discontinued Medications Medication Sig Discontinue Reason Start Date End Da te oxyCODONE (ROXICODONE) 5 mg immediate release tabletIndications:Pain Take 1 tablet (5 mg total) by mouth every 4 (four) hours as needed for pain. Reorder 08/07/2018 08/09/2018 documented as of this encounter Care Teams Retail Center Receptionist Relationship Specialty Start Date End Date Keyonna Armstrong PA PCP - General Nurse Practitioner 06/20/18 documented as of this encounter
--- OUTSIDE RECORDS SUMMARY | 2024-07-10 23:18 | XMS_ITS | Encounter Summary ---
Author Organization [facility] Address [address] [facility] [address] [place] [address] Care Team Providers Care Pile Driving Technician Name Role Phone Keyonna Armstrong Primary Care Provider + Encounter Details Date Type Department Care Team (Late st Contact Info) Description 06/22/2021 Telephone [facility] Orthopedics and Sports Medicine [address] [place] [address] [place] [phone] Katherine Mueller MA Social History Tobacco Use Types Packs/Day Years Used Date Smoking Tobacco: Never Smokeless Tobacco: Never Alcohol Use Standard Drinks/Week Comments No 0 (1 standard drink = 0.6 oz pur e alcohol) Comments No Sex and Gender Information Value Date Recorded Sex Assigned at Not on file Legal Sex Female 6:41 PM ARCHITECTURAL ASSOCIATE Gender Identity Not on file Sexual Orientation Not on file 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
--- OUTSIDE RECORDS SUMMARY | 2024-07-10 23:18 | XMS_ITS | Encounter Summary ---
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 Spondylolisthesis of cervical region Valentina Curtis NP [address] [facility] [address] [address] [place] [address] [place] [address] Phone: tel: fax: Flor Kincaid MD [facility] [facility] [address] [place] [address] [place] [address] [place] [address] Phone: tel: fax: Referral ID Status Reason Start Date Expiration Date V isits Requested Visits Authorized [id number] Closed Specialty Services Required 08/01/2021 08/31/2022 1 1 Question Answer Please select the performing region: [facility] [[id number]] To provider: FLOR KINCAID [[id number]] # of visits: 1 Comments Evaluate and treat ER TENDER Reason for Visit * Reason Comments Shoulder Pain * Consultation (Routine) - Closed Specialty Diagnoses / Procedures Referred By Contac t Referred To Contact Pain Management Diagnoses Right cervical radiculopathy Protrusion of cervical intervertebral disc 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 Spondylolisthesis of cervical region Valentina Curtis NP [facility] [facility] [address] [place] [address] Phone: tel: fax: Flor Kincaid MD [address] [place] [address] [address] [facility] [place] [address] Phone: tel: fax: Referral ID Status Reason Start Date Expiration Date V isits Requested Visits Authorized [id number] Closed Specialty Services Required 08/01/2021 08/31/2022 1 1 Encounter Details Date Type Department Care Team (Latest Contact Info) Description 08/23/2021 10:22 AM BOILER TENDER - 08/23/2021 11:59 PM BOILER TENDER Hospital Encounter [facility] Pain Mgmt [address] [place] [address] [address] [phone] Flor Kincaid MD [address] [place] [address] [address] [facility] [place] [address] Facet arthropathy, cervical (Primary Dx); Right cervical radiculopathy; Protrusion of cervical intervertebral disc; 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 cervical vertebra; Arthropathy of cervical facet joint; Spondylolisthesis of cervical region; Neural foraminal stenosis of lumbar spine; Cervicalgia Discharge Disposition: Discharge to home or self care Social History Tobacco Use Types Packs/Day Years Used Date Smoking Tobacco: Never Smokeless Tobacco: Never Alcohol Use Standard Drinks/Week Comments No 0 (1 standard drink = 0.6 oz pur e alcohol) Comments No Sex and Gender Information Value Date Recorded Sex Assigned at Not on file Legal Sex Female 6:41 PM BOILER TENDER Gender Identity Not on file Sexual Orientation Not on file 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 Not on file Not on leeann e documented as of this encounter Last Filed Vital Signs Vital Sign Reading Time Taken Comments Blood Pressure 136/80 08/23/2021 11:03 AM BOILER TENDER Pulse 77 08/23/2021 11:03 AM BOILER TENDER Temperature 36.2 ??C (97.2 ??F) 08/23/2021 1 1:03 AM BOILER TENDER Respiratory Rate 18 08/23/2021 11:0 3 AM BOILER TENDER Oxygen Saturation 97% 08/23/2021 11: 03 AM BOILER TENDER Inhaled Oxygen Concentration - - Weight 128.3 kg (282 lb 14.4 oz) 2021 11:03 AM BOILER TENDER Height 165.1 cm (5' 5) 08/23/2021 11:0 3 AM BOILER TENDER Body Mass Index 47.08 08/23/2021 11:03 AM BOILER TENDER documented in this encounter Discharge Instructions * Patient Instructions* Nenita Dean RN - 08/23/2021 10:45 AM BOILER TENDER Shower with antibacterial soap the day of the procedure. Have a concrete pile driver operator for your appointment. Take your medications as scheduled. You may eat a light meal. ER TENDER documented in this encounter Medications at Time [...] documented in this encounter H&P Notes * Flor Kincaid MD - 08/23/2021 10:45 AM CST New Patient Consultation Chief Complaint: Neck Pain [...] pain. Patient agreed with the treatment plan. 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 Spondylolisthesis of cervical region Once for 1 Occurrences starting 08/23/2021 until 08/23/2021 documented as of this encounter Visit Diagnoses Diagnosis Facet arthropathy, cervical- Primary Right cervical radiculopathy Protrusion of cervical intervertebral disc 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
--- OUTSIDE RECORDS SUMMARY | 2024-07-10 23:18 | XMS_ITS | Encounter Summary ---
Author Organization [facility] Address [address] [place] [address] Care Team Providers Care Logistics System Engineer Name Role Phone Keyonna Armstrong Primary Care Provider + Reason for Visit * Neurology (Routine) - Closed Specialty Diagnoses / Procedures Referred By Lee saunders Referred To Contact Diagnoses Right cervical radiculopathy Numbness and tingling of right upper extremity Procedures EMG/NCV - Valentina Curtis, FAST FOOD SERVICES MANAGER [address] [place] [address] Phone: tel: fax: [address] [phone] Referral ID Status Reason Start Date Expiration Date Visits Re quested Visits Authorized [id number] Closed 06/02/2021 07/02/2022 1 1 Encounter Details Date Type Department Care Team (Late st Contact Info) Description 06/21/2021 1:30 PM STOCK MIXER Therapy [facility] OP Physical Therapy [address] [place] [phone] Right cervical radiculopathy; Numbness and tingling of right upper extremity Social History Tobacco Use Types Packs/Day Years Used Date Smoking Tobacco: Never Smokeless Tobacco: Never Alcohol Use Standard Drinks/Week Comments No 0 (1 standard drink = 0.6 oz pur e alcohol) Comments No Sex and Gender Information Value Date Recorded Sex Assigned at Not on file Legal Sex Female 6:41 PM STOCK MIXER Gender Identity Not on file Sexual Orientation Not on file 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 K MIXER documented in this encounter Plan of Treatment Not on file documented as of this encounter Visit Diagnoses Diagnosis Right cervical radiculopathy Numbness and tingling of right upper extremity documented in this encounter Orders Imaging Orders Without Results Count Last Order ed Date First Ordered Date EMG/NCV 1 06/21/2021 documented in this encounter Care Teams Logistics System Engineer Relationship Specialty Start Date End Date Keyonna Armstrong PA PCP - General Nurse Practitioner 06/20/18 documented as of this encounter
--- OUTSIDE RECORDS SUMMARY | 2024-07-10 23:19 | XMS_ITS | Encounter Summary ---
Author Organization [facility] Healthcare Address [facility] [place] [address] Care Team Providers Care Fire Chief Name Role Phone Keyonna Armstrong Primary Care Provider + Encounter Details Date Type Department Care Team (Latest Contact Info) Description 06/20/2018 12:27 PM SNOW SHOVELER - 06/20/2018 12:29 PM SNOW SHOVELER Hospital Encounter [facility] [address] [place] [address] Discharge Disposition: Discharge to home or self care Social History Tobacco Use Types Packs/Day Years Used Date Smoking Tobacco: Never Smokeless Tobacco: Never Alcohol Use Standard Drinks/Week Comments No 0 (1 standard drink = 0.6 oz pur e alcohol) Comments Unknown Sex and Gender Information Value Date Recorded Sex Assigned at Not on file Legal Sex Female 6:41 PM SNOW SHOVELER Gender Identity Not on file Sexual Orientation [...] mg total) by mouth nightly 1 04/12/2018 zolpidem (AMBIEN) 10 mg tablet TAKE 1 TABLET BY MOUTH AT BEDTIME NEEDED 1 06/03/2018 cholecalciferol (VITAMIN D-3) 5,000 unit capsule Take 5,000 Units by mouth every morning 05/28/2023 ENPRESSE 50-30 (6)/75-40 (5)/125-30(10) per tablet Take 1 tablet by mouth nightly. 0 04/08/2018 05/30/2021 LORazepam (ATIVAN) 0.5 mg tablet Take by mouth 3 (three) times a day as needed. 1 05/29/2018 07/29/2018 methocarbamol (ROBAXIN) 750 mg tablet Take 1-2 tablets by mouth. 08/11/2014 10/13/2021 metoprolol XL (TOPROL-XL) 50 mg 24 hr tablet Take 50 mg by mouth every morning. 0 05/30/2018 07/29/[address] (PROTONIX) 40 mg EC tablet Take 40 mg by mouth every morning. 3 06/11/2018 05/30/2021 venlafaxine XR (EFFEXOR-XR) 75 mg 24 hr capsule TAKE ONE CAPSULE BY MOUTH EVERY MORNING AND TAKE 2 CAPSULES EVERY EVENING 1 04/16/2018 07/29/2018 VENTOLIN HFA 90 mcg/actuation inhaler TAKE 2 PUFFS BY MOUTH EVERY 4 HOURS NEEDED FOR WHEEZING 1 06/10/2018 11/27/2023 documented as of this encounter Discharge Disposition Disposition Code Departure Means Destination Discharge to home or self care documented in this encounter Plan of Treatment Not on file documented as of this encounter Procedures Procedure Name Priority Date/Time Associated Diagnosis Comments US TRANSFER OF OUTSIDE FILMS Routine 06/20/2018 12:27 PM SNOW SHOVELER Diagnosis unknown documented in this encounter Results * US Outside Reference (06/20/2018 12:27 PM SNOW SHOVELER) Anatomical Region Laterality Modality Ultrasound Impressions 06/20/2018 12:27 PM SNOW SHOVELER These images are for Reference purposes only and have not been reviewed by [facility] Radiology. ??There will be no report generated by a [facility] Radiologist. Narrative 06/20/2018 12:27 PM SNOW SHOVELER EXAMINATION: ??Images For Reference Purposes Only us Elli Hernandez MD PhD IMG US PROCEDURES Final R esult documented in this encounter Visit Diagnoses Not on filedocumented in this encounter Care Teams Fire Chief Relationship Specialty Start Date End Date Keyonna Armstrong PA PCP - General Nurse Practitioner 06/20/18 documented as of this encounter
--- OUTSIDE RECORDS SUMMARY | 2024-07-10 23:19 | XMS_ITS | Encounter Summary ---
Author Organization [facility] Address [address] [facility] [address] [place] [id number] Care Team Providers Care Paper Control Clerk Name Role Phone Keyonna Armstrong Primary Care Provider + Reason for Referral * (Routine) - Closed Specialty Diagnoses / Procedures Referred By Contac t Referred To Contact Procedures Transthoracic Echo Complete W Doppler/CF [facility] Cardiology [address] [facility] [address] [place] [id number] Phone: tel: fax: Referral ID Status Reason Start Date Expiration Date Visits Re quested Visits Authorized [id number] Closed 06/28/2018 01/07/2020 1 1 MENDER Encounter Details Date Type Department Care Team (Late st Contact Info) Description 06/28/2018 Orders Only [facility] Cardiology [address] [facility] [address] [place] [phone] Gloria Bautista MD [address] [place] [id number] Social History Tobacco Use Types Packs/Day Years Used Date Smoking Tobacco: Never Smokeless Tobacco: Never Alcohol Use Standard Drinks/Week Comments No 0 (1 standard drink = 0.6 oz pur e alcohol) Comments Unknown Sex and Gender Information Value Date Recorded Sex Assigned at Not on file Legal Sex Female 6:41 PM 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[employer] Gender Identity Not on file Sexual Orientation Not on file documented as of this encounter Plan of Treatment Not on file documented as of this encounter Procedures Procedure Name Priority Date/Time Associated Diagnosis Comments TRANSTHORACIC ECHO (TTE) COM PLETE W DOPPLER/CF Routine 05/30/2018 documented in this encounter Results * Transthoracic Echo Complete W Doppler/CF (05/30/2018) Anatomical Region Laterality Modality Ultrasound us Historical Provider CV ECHO PROCEDURES Final Result documented in this encounter Visit Diagnoses Not on filedocumented in this encounter Care Teams Paper Control Clerk Relationship Specialty Start Date End Date Keyonna Armstrong PA PCP - General Nurse Practitioner 06/20/18 documented as of this encounter
--- OUTSIDE RECORDS SUMMARY | 2024-07-10 23:19 | XMS_ITS | Encounter Summary ---
Author Organization [facility], [facility] Address [address] [facility] [address] [place] [address] Phone Care Team Providers Care Paper Cone Machine Tender Name Role Phone Keyonna Armstrong Primary Care Provider + Reason for Visit * Consultation (Routine) - Closed Specialty Diagnoses / Procedures Referred By Lee t Referred To Contact Bariatrics / Bariatric Surgery Diagnoses Gallbladder abscess Referral, Self [facility] [address] [place] [address] [place] [address] Phone: tel: Referral ID Status Reason Start Date Expiration Date V isits Requested Visits Authorized [id number] Closed Specialty Services Required 06/19/2018 07/25/2018 1 Encounter Details Date Type Department Care Team (Latest Contact Info) Description 06/20/2018 9:00 AM EXPERIMENTAL DISPLAY BUILDER Office Visit [facility] Surgery [address] [place] [address] Medical Office Building [address] [place] [id number] Elli Hernandez MD PhD [address] [place] [address] Intestinal malabsorption, unspecified type (Primary Dx); Gallbladder abscess; Calculus of gallbladder with acute cholecystitis without obstruction; Bariatric surgery status Social History Tobacco Use Types Packs/Day Years Used Date Smoking Tobacco: Never Smokeless Tobacco: Never Alcohol Use Standard Drinks/Week Comments No 0 (1 standard drink = 0.6 oz pur e alcohol) Comments Unknown Sex and Gender Information Value Date Recorded Sex Assigned at Not on file Legal Sex Female 6:41 PM EXPERIMENTAL DISPLAY BUILDER Gender Identity Not on file Sexual Orientation Not on file documented as of this encounter Last Filed Vital Signs Vital Sign Reading Time Taken Comments Blood Pressure 137/88 06/20/2018 9:14 AM EXPERIMENTAL DISPLAY BUILDER Pulse 125 06/20/2018 9:14 AM EXPERIMENTAL DISPLAY BUILDER Temperature 36.6 ??C (97.9 ??F) 06/20/2018 9:14 AM CS T Respiratory Rate - - Oxygen Saturation - - Inhaled Oxygen Concentration - - Weight 132.3 kg (291 lb 9.6 oz) 06/20/2018 9:14 AM EXPERIMENTAL DISPLAY BUILDER Height 163.5 cm (5' 4.37) 06/20/2018 9:14 AM CS T Body Mass Index 49.48 06/20/2018 9:14 AM EXPERIMENTAL DISPLAY BUILDER documented in this encounter Patient Instructions * Patient Instructions* Elli Hernandez MD PhD - 06/20/2018 9:00 AM EXPERIMENTAL DISPLAY BUILDER B12 500 micrograms a day Ca citrate 500 mg, three times a day MVI--need to get 200% of the daily value RIMENTAL DISPLAY BUILDER documented in this encounter Progress Notes * Elli Hernandez MD PhD - 06/20/2018 9:00 AM CST Images from the original note were not included. [facility] Minimally Invasive Surgery New Patient Consultation / Evaluation REASON FOR CONSULTATION: Calculus of gallbladder with acute cholecystitis without obstruction REFERRING PROVIDER: Referral, Self HISTORY OF PRESENT ILLNESS: The patient is a 47 y.o. female presenting with cholelithiasis. She wasadmitted to an OSH on 05/28/18. She went there with severe abdominal pain. She says they diagnosed her with cholecystitis and pancreatitis. Her pain improved within the first day when it passed (presumably a stone). She was kept in the hospital for about 5 d on IV abx. She was not discharged with any abx. She feels fine now. She says they told her she needed her gallbladder out but that when they saw she had had previous surgery they did not want to proceed. I reviewed her CT scan and u/s from 11/6/18. They show a distended gallbladder and gallstones with a normal CBD. I do not have any labs or other records from her hospitalization. In addition, she has not been seeing any bariatric surgeons and is not sure whether her vitamin levels have been checked. She is taking MVI and Vitamin D but no calcium or B12 or iron. MEDICAL CONDITIONS: Patient Active Problem List Diagnosis ??? Class 3 severe obesity with serious comorbidity in adult (CMS/HCC) ??? Calculus of gallbladder with acute cholecystitis without obstruction ??? HTN (hypertension) ??? PCOS (polycystic ovarian syndrome) ??? Depression PAST MEDICAL HISTORY: She has a past medical history of Cholelithiasis; Depression; Hypertension; and PCOS (polycystic ovarian syndrome). PAST SURGICAL HISTORY: She has a past surgical history that includes Maude-en-y procedure. MEDICATIONS: She has a current medication list which includes the following prescription(s): cholecalciferol, enpresse, hydrochlorothiazide, lisinopril, lorazepam, metformin, metoprolol xl, metoprolol xl, pantoprazole dr, venlafaxine xr, ventolin hfa, and zolpidem. ALLERGIES: She has No Known Allergies. FAMILY HISTORY: Her family history includes Diabetes in her father; Hypertension in her father and mother; Thyroid cancer in her sister. SOCIAL HISTORY: She reports that she has never smoked. She has never used smokeless tobacco. She reports that she does not drink alcohol or use drugs. REVIEW OF SYSTEMS: A comprehensive review of systems was completed by the patient; and reviewed, signed, and scanned into the chart. PHYSICAL EXAMINATION: Ht: 163.5 cm (5' 4.37) Wt: 132.3 kg (291 lb 9.6 oz) BMI: Body mass index is 49.48 kg/m??. BP 137/88 (BP Location: Left arm, Patient Position: Sitting) Pulse 125 Temp 36.6 ??C (97.9 ??F)(Oral) Ht 163.5 cm (5' 4.37) Wt 132.3 kg (291 lb 9.6 oz) BMI 49.48 kg/m?? GENERAL: Morbidly obese individual in no acute distress. NEURO: Alert and oriented x3, mood and affect appropriate. HEENT: Pupils equal. EOMs grossly normal. NECK: Supple. Trachea midline. PULMONARY: Breathing comfortably on room air. No audible wheezes. CARDIOVSCULAR: Regular rate and rhythm. Palpable pedal pulses. No venous stasis changes. SKIN: Smooth and dry. No rashes. ABDOMEN: Soft, non-tender, no masses. No hepatomegaly, no splenomegaly. MUSCULOSKELETAL: Grossly normal range of motion. No limp. Vertical midline scar CT scan and ultrasound independently reviewed--see above ASSESSMENT AND PLAN: The patient is a 47 y.o. female with cholecystitis and pancreatitis with recent hospitalization at OSH. Based on my review of her CT scan and ultrasound, she should have her gallbladder removed. However, we should wait for the inflammation to improve, so I would schedule this for mid-to-late July. We discussed the risks of surgery including bleeding, infection, bile duct injury, biloma, injuryto surrounding structures, hernia. She is at increased risk due to her obesity. Given her open bypass, it is also likely she will have adhesions that we will have to take down. Given her h/o pancreatitis, will plan for IOC as well. With regard to her bariatric status, we will check a full panel of labs today. I reviewed with her the dosages of the vitamins (B12, MVI, and Ca) that she should be taking. Elli Hernandez MD PhD RIMENTAL DISPLAY BUILDER documented in this encounter Plan of Treatment Scheduled Orders Name Type Priority Associated Diagnoses Orde r Schedule Amylase Lab Routine Gallbladder abscess Calculus of gallbladder with acute cholecystitis without obstruction Expected: 06/20/2018, Expires: 06/20/2019 Lipase Lab Routine Gallbladder abscess Calculus of gallbladder with acute cholecystitis without obstruction Expected: 06/20/2018, Expires: 06/20/2019 documented as of this encounter Procedures Procedure Name Priority Date/Time Associated Diagnosis Comments COPY(IES) SENT TO: Routine 07/11/2018 8: 19 AM EXPERIMENTAL DISPLAY BUILDER IRON PROFILE W/ IBC Routine 07/11/2018 8 :19 AM EXPERIMENTAL DISPLAY BUILDER Intestinal malabsorption, unspecified type Bariatric surgery status CBC WITH AUTO DIFFERENTIAL Routine 07/11/2018 8:19 AM EXPERIMENTAL DISPLAY BUILDER Intestinal malabsorption, unspecified type Bariatric surgery status COPPER, SERUM Routine 07/11/2018 8:19 AM EXPERIMENTAL DISPLAY BUILDER Intestinal malabsorption, unspecified type Bariatric surgery status VITAMIN D 25 HYDROXY Routine 07/11/2018 8:19 AM EXPERIMENTAL DISPLAY BUILDER Intestinal malabsorption, unspecified type Bariatric surgery status VITAMIN B1 Routine 07/11/2018 8:19 AM EXPERIMENTAL DISPLAY BUILDER Intestinal malabsorption, unspecified type Bariatric surgery status PTH Routine 07/11/2018 8:19 AM EXPERIMENTAL DISPLAY BUILDER Intestinal malabsorption, unspecified type Bariatric surgery status LIPASE Routine 07/11/2018 8:19 AM EXPERIMENTAL DISPLAY BUILDER HEMOGLOBIN A1C Routine 07/11/2018 8:19 AM EXPERIMENTAL DISPLAY BUILDER Intestinal malabsorption, unspecified type Bariatric surgery status FOLATE Routine 07/11/2018 8:19 AM EXPERIMENTAL DISPLAY BUILDER Intestinal malabsorption, unspecified type Bariatric surgery status FERRITIN Routine 07/11/2018 8:19 AM EXPERIMENTAL DISPLAY BUILDER Intestinal malabsorption, unspecified type Bariatric surgery status VITAMIN B12 Routine 07/11/2018 8:19 AM EXPERIMENTAL DISPLAY BUILDER Intestinal malabsorption, unspecified type Bariatric surgery status AMYLASE Routine 07/11/2018 8:19 AM EXPERIMENTAL DISPLAY BUILDER LIPID PANEL Routine 07/11/2018 8:19 AM EXPERIMENTAL DISPLAY BUILDER Intestinal malabsorption, unspecified type Bariatric surgery status COMPREHENSIVE METABOLIC PANEL Routine 07/11/2018 8:19 AM EXPERIMENTAL DISPLAY BUILDER Intestinal malabsorption, unspecified type Bariatric surgery status documented in this encounter Results * (ABNORMAL) Lipase (07/11/2018 8:19 AM EXPERIMENTAL DISPLAY BUILDER) LIPASE 69(H) 7 - 60 U/L [facility] [place] 07/11/2018 8:19 AM EXPERIMENTAL DISPLAY BUILDER 07/11/2018 8:20 AM EXPERIMENTAL DISPLAY BUILDER Narrative [facility] - 07/15/2018 8:57 AM EXPERIMENTAL DISPLAY BUILDER FASTING:YES FASTING: YES Resulting Agency Comment Performing Organization Information: ?Site ID: RICH ?Name: [facility] ?Address: [facility] [place] [address] ?Director: Servando Cervantes D.O., MPH us Elli Hernandez MD PhD LAB BLOOD ORDERABLES Kiley l Result Performing Organization Address [facility]/ZIP Co de Phone Number [facility] - [place] * Amylase (07/11/2018 8:19 AM EXPERIMENTAL DISPLAY BUILDER) Amylase 84 21 - 101 U/L [facility] - [place] 07/11/2018 8:19 AM EXPERIMENTAL DISPLAY BUILDER 07/11/2018 8:20 AM EXPERIMENTAL DISPLAY BUILDER Narrative [facility] - 07/15/2018 8:57 AM EXPERIMENTAL DISPLAY BUILDER FASTING:YES FASTING: YES Resulting Agency Comment Performing Organization Information: ?Site ID: RICH ?Name: Gerry Hutchison ?Address: [facility] [place] [address] ?Director: Servando Cervantes D.O., MPH us Elli Hernandez MD PhD LAB BLOOD ORDERABLES Kiley l Result Performing Organization Address [facility] Co de Phone Number [place] * COPY(IES) SENT TO: (07/11/2018 8:19 AM EXPERIMENTAL DISPLAY BUILDER) COPY(IES) SENT TO: [facility] Comment: ?[facility] ?[address] ?[place] [address] 07/11/2018 8:19 AM EXPERIMENTAL DISPLAY BUILDER 07/11/2018 8:20 AM EXPERIMENTAL DISPLAY BUILDER Narrative [facility] - 07/15/2018 8:57 AM EXPERIMENTAL DISPLAY BUILDER FASTING:YES FASTING: YES us Elli Hernandez MD PhD LAB BLOOD ORDERABLES Kiley l Result [facility] * Vitamin D 25 hydroxy (07/11/2018 8:19 AM EXPERIMENTAL DISPLAY BUILDER) Vitamin D 25-OH 41 30 - 100 ng/mL [facility] - [place] Comment: Vitamin D Status ? 25-OH Vitamin D: Deficiency: ?<20 ng/mL Insufficiency: ? 20 - 29 ng/mL Optimal: ? > or = 30 ng/mL For 25-OH Vitamin D testing on patients on D2-supplementation and patients for whom quantitation of D2 and D3 fractions is required, the QuestAssureD(TM) 25-OH VIT D, (D2,D3), LC/MS/MS is recommended: order code 96515 (patients >2yrs). For more information on this test, go to: http://education.[employer]/faq/PSL019 (This link is being provided for informational/educational purposes only.) Blood specimen (specimen) 07/11/2018 8:19 AM EXPERIMENTAL DISPLAY BUILDER 07/11/2018 8:20 AM EXPERIMENTAL DISPLAY BUILDER Narrative [facility] - 07/15/2018 8:57 AM EXPERIMENTAL DISPLAY BUILDER FASTING:YES FASTING: YES Resulting Agency Comment Performing Organization Information: ?Site ID: [place] ?Name: [facility] [place] ?Address: [address] [place] [address] [place] [address] ?Director: Servando Cervantes D.O., MPH us Elli Hernandez MD PhD LAB BLOOD ORDERABLES Kiley garrett Result [facility] - [place] * Vitamin B12 (07/11/2018 8:19 AM EXPERIMENTAL DISPLAY BUILDER) Vitamin B12 350 200 - 1,100 pg/mL [facility] - [place] Comment: Please Note: Although the reference range for vitamin B12 is 200-1100 pg/mL, it has been reported that between 5 and 10% of patients with values between 200 and 400 pg/mL may experience neuropsychiatric and hematologic abnormalities due to occult B12 deficiency; less than 1% of patients with values above 400 pg/mL will have symptoms. Blood specimen (specimen) 07/11/2018 8:19 AM EXPERIMENTAL DISPLAY BUILDER 07/11/2018 8:20 AM EXPERIMENTAL DISPLAY BUILDER Narrative [facility] - 07/15/2018 8:57 AM EXPERIMENTAL DISPLAY BUILDER FASTING:YES FASTING: YES Resulting Agency Comment Performing Organization Information: ?Site ID: [place] ?Name: [facility] ?Address: [address] [place] [address] ?Director: Servando Cervantes D.O., MPH us Elli Hernandez MD PhD LAB BLOOD ORDERABLES Kiley l Result Performing Organization Address City/[facility]/ZIP Co de Phone Number [facility] - [place] * (ABNORMAL) Vitamin B1 (07/11/2018 8:19 AM EXPERIMENTAL DISPLAY BUILDER) [facility] Thiamine (Vit B1) 192(H) 78 - 185 nmol/L [facility] Comment: Vitamin supplementation within 24 hours prior to blood draw may affect the accuracy of results. This test was developed and its analytical performance characteristics have been determined by [facility]. It has not been cleared or approved by FDA. This assay has been validated pursuant to the CLIA regulations and is used for clinical purposes. Blood specimen (specimen) 07/11/2018 8:19 AM EXPERIMENTAL DISPLAY BUILDER 07/11/2018 8:20 AM EXPERIMENTAL DISPLAY BUILDER Narrative [facility] - 07/15/2018 8:57 AM EXPERIMENTAL DISPLAY BUILDER FASTING:YES FASTING: YES Resulting Agency Comment Performing Organization Information: ?Site ID: [facility] ?Name: [facility] ?Address: [address] [place] [address] ?Director: Darrell Morris M.D., Ph.D us Elli Hernandez MD PhD LAB BLOOD ORDERABLES Kiley l Result [facility] [place], [place] * PTH, intact (07/11/2018 8:19 AM EXPERIMENTAL DISPLAY BUILDER) Pathologist [facility] Parathyroid hormone, intact 55 14 - 64 pg/mL [facility] - [place] Comment: Interpretive Guide ?Intact PTH ? Calcium ? ------- Normal Parathyroid ?Normal ? Normal Hypoparathyroidism ?Low or Low Normal ?Low Hyperparathyroidism ?? Primary ?Normal or High ? High ?? Secondary ?High ? Normal or Low ?? Tertiary ? High ? High Non-Parathyroid ?? Hypercalcemia ?Low or Low Normal ?High Blood specimen (specimen) 07/11/2018 8:19 AM EXPERIMENTAL DISPLAY BUILDER 07/11/2018 8:20 AM EXPERIMENTAL DISPLAY BUILDER Narrative [facility] - 07/15/2018 8:57 AM EXPERIMENTAL DISPLAY BUILDER FASTING:YES FASTING: YES Resulting Agency Comment Performing Organization Information: ?Site ID: [place] ?Name: [facility] ?Address: [address] [place] [address] [place] [address] ?Director: Servando Cervantes D.O., MPH us Elli Hernandez MD PhD LAB BLOOD ORDERABLES Kiley l Result [facility] - [place] * (ABNORMAL) Lipid panel (07/11/2018 8:19 AM EXPERIMENTAL DISPLAY BUILDER) Pathologist [facility] Cholesterol 139 <200 mg/dL [facility] [place] HDL 38(L) >50 mg/dL [facility] [place] Triglycerides 204(H) <150 mg/dL [facility] [place] LDL 71 mg/dL (calc) [facility] [place] Comment: Reference range: <100 Desirable range <100 mg/dL for primary prevention; ?? <70 mg/dL for patients with CHD or diabetic patients with > or = 2 CHD risk factors. LDL-C is now calculated using the Carlos Enrique calculation, which is a validated novel method providing better accuracy than the Friedewald equation in the estimation of LDL-C. Deep GREER et al. JAMAR. 2013;310(19): 4502-0840 (http://education.[employer]./faq/KHU703) Chol/HDL ratio 3.7 <5.0 (calc) [facility] [place] Non-HDL, (LDL+VLDL) 101 <130 mg/dL (calc) [facility] [place] Comment: For patients with diabetes plus 1 major ASCVD risk factor, treating to a non-HDL-C goal of <100 mg/dL (LDL-C of <70 mg/dL) is considered a therapeutic option. Blood specimen (specimen) 07/11/2018 8:19 AM EXPERIMENTAL DISPLAY BUILDER 07/11/2018 8:20 AM EXPERIMENTAL DISPLAY BUILDER Narrative [facility] - 07/15/2018 8:57 AM EXPERIMENTAL DISPLAY BUILDER FASTING:YES FASTING: YES Resulting Agency Comment Performing Organization Information: ?Site ID: [place] ?Name: [facility] ?Address: [address] [place] [address] [place] [address] ?Director: Servando Cervantes D.O., MPH Elli Hernandez MD PhD LAB BLOOD ORDERABLES Kiley l Result [facility] - [facility] [place] * (ABNORMAL) Iron profile w/ IBC (07/11/2018 8:19 AM EXPERIMENTAL DISPLAY BUILDER) Iron 132 40 - 190 mcg/dL [facility] [place] TIBC 463(H) 250 - 450 mcg/dL (calc) [facility] - [place] Iron saturation 29 11 - 50 % (calc) [facility] [place] Blood specimen (specimen) 07/11/2018 8:19 AM EXPERIMENTAL DISPLAY BUILDER 07/11/2018 8:20 AM EXPERIMENTAL DISPLAY BUILDER Narrative [facility] - 07/15/2018 8:57 AM EXPERIMENTAL DISPLAY BUILDER FASTING:YES FASTING: YES Resulting Agency Comment Performing Organization Information: ?Site ID: [place] ?Name: [facility] ?Address: [facility] [place] [address] ?Director: Servando Cervantes D.O., MPH Elli Hernandez MD PhD LAB BLOOD ORDERABLES Kiley l Result Performing Organization Address [facility] de Phone Number [place] * Hemoglobin A1c (07/11/2018 8:19 AM EXPERIMENTAL DISPLAY BUILDER) Hgb A1C 5.1 <5.7 % of total Hgb [facility] Comment: For the purpose of screening for the presence of diabetes: <5.7% ? Consistent with the absence of diabetes 5.7-6.4% ?Consistent with increased risk for diabetes ?(prediabetes) > or =6.5% ??Consistent with diabetes This assay result is consistent with a decreased risk of diabetes. Currently, no consensus exists regarding use of hemoglobin A1c for diagnosis of diabetes in children. According to [place] Diabetes Association (ADA) guidelines, hemoglobin A1c <7.0% represents optimal control in non- diabetic patients. Different metrics may apply to specific patient populations. Standards of Medical Care in Diabetes(ADA). ?? Blood specimen (specimen) 07/11/2018 8:19 AM EXPERIMENTAL DISPLAY BUILDER 07/11/2018 8:20 AM EXPERIMENTAL DISPLAY BUILDER Narrative [facility] - 07/15/2018 8:57 AM EXPERIMENTAL DISPLAY BUILDER FASTING:YES FASTING: YES Resulting Agency Comment Performing Organization Information: ?Site ID: RICH ?Name: [facility]erry Hutchison ?Address: [facility] [place] [address] ?Director: Servando Cervantes D.O., MPH Elli Hernandez MD PhD LAB BLOOD ORDERABLES Kiley l Result Performing Organization Address [facility] Co de Phone Number [place] * Folate (07/11/2018 8:19 AM EXPERIMENTAL DISPLAY BUILDER) Folate, Serum 22.5 ng/mL [facility] - [place] Comment: ? Reference Range ? Low: ? <3.4 ? Borderline: ?3.4-5.4 ? Normal: ?>5.4 Blood specimen (specimen) 07/11/2018 8:19 AM EXPERIMENTAL DISPLAY BUILDER 07/11/2018 8:20 AM EXPERIMENTAL DISPLAY BUILDER Narrative [facility] - 07/15/2018 8:57 AM EXPERIMENTAL DISPLAY BUILDER FASTING:YES FASTING: YES Resulting Agency Comment Performing Organization Information: ?Site ID: [place] ?Name: [facility] ?Address: [address] [place] [address] ?Director: Servando Cervantes D.O., MPH us Elli Hernandez MD PhD LAB BLOOD ORDERABLES Kiley garrett Result [facility] - [place] * Ferritin (07/11/2018 8:19 AM EXPERIMENTAL DISPLAY BUILDER) Ferritin 10 10 - 232 ng/mL [facility] - [place] Blood specimen (specimen) 07/11/2018 8:19 AM EXPERIMENTAL DISPLAY BUILDER 07/11/2018 8:20 AM EXPERIMENTAL DISPLAY BUILDER Narrative [facility] - 07/15/2018 8:57 AM EXPERIMENTAL DISPLAY BUILDER FASTING:YES FASTING: YES Resulting Agency Comment Performing Organization Information: ?Site ID: [place] ?Name: [email or web address] ?Address: [address] [place] [address] ?Director: Srevando Cervantes D.O., MPH Elli Hernandez MD PhD LAB BLOOD ORDERABLES Kiley garrett Result Performing Organization Address [facility]/ZIP Co de Phone Number [facility] [place] * (ABNORMAL) Copper, serum (07/11/2018 8:19 AM EXPERIMENTAL DISPLAY BUILDER) Pathologist [facility] Copper 185(H) 70 - 175 mcg/dL [facility] Comment: This test was developed and its analytical performance characteristics have been determined by [employer] [facility]. It has not been cleared or approved by the US Food and Drug Administration. This assay has been validated pursuant to the CLIA regulations and is used for clinical purposes. Blood specimen (specimen) 07/11/2018 8:19 AM EXPERIMENTAL DISPLAY BUILDER 07/11/2018 8:20 AM EXPERIMENTAL DISPLAY BUILDER Narrative [facility] - 07/15/2018 8:57 AM EXPERIMENTAL DISPLAY BUILDER FASTING:YES FASTING: YES Resulting Agency Comment Performing Organization Information: ?Site ID: [facility] ?[facility] ?Address: [address] [place] [address] ?Director: Darrell Morris M.D., Ph.D Elli Hernandez MD PhD LAB BLOOD ORDERABLES Kiley l Result Performing Organization Address [facility] Co de Phone Number [place], [place] * CBC with auto differential (07/11/2018 8:19 AM EXPERIMENTAL DISPLAY BUILDER) WBC 10.0 3.8 - 10.8 Thousand/ uL [facility] [place] RBC, POC 4.41 3.80 - 5.10 Million/u L [facility] [place] Hgb 12.8 11.7 - 15.5 g/dL [facility] [place] Hct 39.4 35.0 - 45.0 % [facility] [place] MCV 89.3 80.0 - 100.0 fL [facility] [place] MCH 29.0 27.0 - 33.0 pg [facility] [place] MCHC 32.5 32.0 - 36.0 g/dL [facility] [place] Rdw 13.9 11.0 - 15.0 % [facility] [place] Platelets 390 140 - 400 Thousand/ uL [facility] [place] MPV 9.8 7.5 - 12.5 fL [facility] [place] Neutrophils, abs 5,150 1,500 - 7,800 cells/uL [facility] [place] Neutrophil bands, abs CANCELED 0 - 750 cells/uL [facility] [place] Comment:Result canceled by t he ancillary Metamyelocytes, abs CANCELED 0 cells/uL [facility] [place] Comment:Result canceled by t he ancillary Absolute Myelocytes CANCELED 0 cells/uL [facility] [place] Comment:Result canceled by t he ancillary Promyelocytes, abs CANCELED 0 cells/uL [facility] [place] Comment:Result canceled by t he ancillary Lymphocytes, abs 3,790 850 - 3,900 cells/uL [facility] [place] Monocyte abs 880 200 - 950 cells/uL [facility] [place] Eosinophils, abs 110 15 - 500 cells/uL [facility] [place] Basophils, abs 70 0 - 200 cells/uL [facility] [place] Blast, cell CANCELED 0 cells/uL [facility] [place] Comment:Result canceled by t he ancillary NRBC abs CANCELED 0 cells/uL [facility] [place] Comment:Result canceled by t he ancillary Neutrophils 51.5 % [facility] [place] Neutrophilic bands CANCELED % [facility] [place] Comment:Result canceled by t he ancillary Metamyelocyte pct CANCELED % [facility] [place] Comment:Result canceled by t he ancillary Myelocyte pct CANCELED % [facility] [place] Comment:Result canceled by t he ancillary Promyelocyte pct CANCELED % [facility] [place] Comment:Result canceled by t he ancillary Lymphocyte pct 37.9 % [facility] [place] Reactive lymph CANCELED 0 - 10 % [facility] [place] Comment:Result canceled by t he ancillary Monocytes 8.8 % [facility] [place] Eosinophils 1.1 % [facility] [place] Basophils 0.7 % [facility] [place] Blast pct CANCELED % [facility] [place] Comment:Result canceled by t he ancillary NRBC CANCELED 0 /100 WBC [facility] [place] Comment:Result canceled by t he ancillary Comment CANCELED [facility] [place] Comment:Result canceled by t he ancillary Blood specimen (specimen) 07/11/2018 8:19 AM EXPERIMENTAL DISPLAY BUILDER 07/11/2018 8:20 AM EXPERIMENTAL DISPLAY BUILDER Narrative [facility] - 07/15/2018 8:57 AM EXPERIMENTAL DISPLAY BUILDER FASTING:YES FASTING: YES Resulting Agency Comment Performing Organization Information: ?Site ID: [id number] ?Name: [facility] ?Address: [facility] [place] [address] ?Director: Servando Cervantes D.O., MPH us Elli Hernandez MD PhD LAB BLOOD ORDERABLES Kiley l Result [facility] [place] * Comprehensive metabolic panel (07/11/2018 8:19 AM EXPERIMENTAL DISPLAY BUILDER) Glucose 92 65 - 99 mg/dL [facility] [place] Comment: ? Fasting reference interval BUN 21 7 - 25 mg/dL [facility] [place] Creatinine 0.79 0.50 - 1.10 mg/dL [facility] [place] eGFR NON-AFR. GRENADIAN 88 > OR = 60 mL/min/1. 73m2 [...] ALT (SGPT) 16 6 - 29 U/L [facility] [place] Blood specimen (specimen) 07/11/2018 8:19 AM EXPERIMENTAL DISPLAY BUILDER 07/11/2018 8:20 AM EXPERIMENTAL DISPLAY BUILDER Narrative [facility] - 07/15/2018 8:57 AM EXPERIMENTAL DISPLAY BUILDER FASTING:YES FASTING: YES Resulting Agency Comment Performing Organization Information: ?Site ID: [id number] ?Name: [facility] ?Address: [address] [place], [place] [address] [id number] ?Director: Servando Cervantes D.O., MPH us Elli Hernandez MD PhD LAB BLOOD ORDERABLES Kiley garrett Result [facility] [place] documented in this encounter Visit Diagnoses Diagnosis Intestinal malabsorption, unspecified type- Primary Gallbladder abscess Acute cholecystitis Calculus of gallbladder with acute cholecystitis without obstruction Bariatric surgery status documented in this encounter Historical Medications * This list may reflect changes made after this encounter. zolpidem (AMBIEN) 10 mg tablet TAKE 1 TABLET BY MOUTH AT BEDTIME NEEDED 1 06/03/2018 metoprolol XL (TOPROL-XL) 100 mg 24 hr tablet Take 2 tablets (200 mg total) by mouth nightly 1 04/12/2018 metFORMIN (GLUCOPHAGE) 500 mg tablet Take 3 tablets (1,500 mg total) by mouth daily 3 tabs in evening for 1500 mg dose 1 05/31/2018 lisinopril (PRINIVIL,ZESTRI L) 40 mg tablet Take 0.5 tablets (20 mg total) by mouth every morning 0 04/02/2018 hydroCHLOROthiaz tan (HYDRODIURIL) 25 mg tablet Take 1 tablet (25 mg total) by mouth every morning 0 05/02/2018 cholecalciferol (VITAMIN D-3) 5,000 unit capsule Take 5,000 Units by mouth every morning 05/28/2023 venlafaxine XR (EFFEXOR-XR) 75 mg 24 hr capsule TAKE ONE CAPSULE BY MOUTH EVERY MORNING AND TAKE 2 CAPSULES EVERY EVENING 1 04/16/2018 07/29/[address] (PROTONIX) 40 mg EC tablet Take 40 mg by mouth every morning. 3 06/11/2018 05/30/2021 metoprolol XL (TOPROL-XL) 50 mg 24 hr tablet Take 50 mg by mouth every morning. 0 05/30/2018 07/29/2018 LORazepam (ATIVAN) 0.5 mg tablet Take by mouth 3 (three) times a day as needed. 1 05/29/2018 07/29/2018 ENPRESSE 50-30 (6)/75-40 (5)/125-30(10) per tablet Take 1 tablet by mouth nightly. 0 04/08/2018 05/30/2021 VENTOLIN HFA 90 mcg/actuation inhaler TAKE 2 PUFFS BY MOUTH EVERY 4 HOURS NEEDED FOR WHEEZING 1 06/10/2018 11/27/2023 added in this encounter Orders Outpatient Referral Count Last Ordered Date st Ordered Date AMB REFERRAL TO BARIATRIC SURGERY 1 018 documented in this encounter Care Teams Paper Cone Machine Tender Relationship Specialty Start Date End Date Keyonna Armstrong PA PCP - General Nurse Practitioner 06/20/18 documented as of this encounter
--- OUTSIDE RECORDS SUMMARY | 2024-07-10 23:19 | XMS_ITS | Encounter Summary ---
Author Organization [facility] Healthcare Address [facility] [place] [address] Care Team Providers Care Camouflage Specialist Name Role Phone Keyonna Armstrong Primary Care Provider + Encounter Details Date Type Department Care Team (Latest Contact Info) Description 06/20/2018 12:30 PM CEMENT PAVER - 06/20/2018 11:59 PM CEMENT PAVER Hospital Encounter [facility] [address] [place] [phone] Discharge Disposition: Discharge to home or self care Social History Tobacco Use Types Packs/Day Years Used Date Smoking Tobacco: Never Smokeless Tobacco: Never Alcohol Use Standard Drinks/Week Comments No 0 (1 standard drink = 0.6 oz pur e alcohol) Comments Unknown Sex and Gender Information Value Date Recorded Sex Assigned at Not on file Legal Sex Female 6:41 PM CEMENT PAVER Gender Identity Not on file Sexual Orientation [...] Name Priority Date/Time Associated Diagnosis Comments CT BODY OUTSIDE REFERENCE Routine 06/20/2018 12:30 PM CEMENT PAVER Diagnosis unknown documented in this encounter Results * CT Body Outside Reference (06/20/2018 12:30 PM CEMENT PAVER) Anatomical Region Laterality Modality N/A Mammography Impressions 06/20/2018 12:30 PM CEMENT PAVER These images are for Reference purposes only and have not been reviewed by [facility] Radiology. ??There will be no report generated by a [facility] Radiologist. Narrative 06/20/2018 12:30 PM CEMENT PAVER EXAMINATION: ??Images For Reference Purposes Only us Elli Hernandez MD PhD IMG CT PROCEDURES Final R esult documented in this encounter Visit Diagnoses Not on filedocumented in this encounter Care Teams Camouflage Specialist Relationship Specialty Start Date End Date Keyonna Armstrong PA PCP - General Nurse Practitioner 06/20/18 documented as of this encounter
--- OUTSIDE RECORDS SUMMARY | 2024-07-10 23:19 | XMS_ITS | Encounter Summary ---
Author Organization [facility] Healthcare Address [address] [place] [address] Care Team Providers Care Electric Motor Control Assembler Name Role Phone Keyonna Armstrong Primary Care Provider + Encounter Details Date Type Department Care Team (Latest Contact Info) Description 08/07/2018 6:55 AM BENCH INSPECTOR - 08/07/2018 4:41 PM BENCH INSPECTOR Hospital Encounter [facility] Operating [facility] [address] [place] [phone] Elli Hernandez MD PhD [address] [facility] [address] [place] [address] Cholecystitis Discharge Disposition: Discharge to home or self care Social History Tobacco Use Types Packs/Day Years Used Date Smoking Tobacco: Never Smokeless Tobacco: Never Alcohol Use Standard Drinks/Week Comments No 0 (1 standard drink = 0.6 oz pur e alcohol) Comments No Sex and Gender Information Value Date Recorded Sex Assigned at Not on file Legal Sex Female 6:41 PM BENCH INSPECTOR Gender Identity Not on file Sexual Orientation Not on file documented as of this encounter Last Filed Vital Signs Vital Sign Reading Time Taken Comments Blood Pressure 149/74 08/07/2018 4:00 PM BENCH INSPECTOR Pulse 116 08/07/2018 4:00 PM BENCH INSPECTOR Temperature 36.8 ??C (98.2 ??F) 08/07/2018 3:30 PM CS T Respiratory Rate 18 08/07/2018 4:00 PM BENCH INSPECTOR Oxygen Saturation 98% 08/07/2018 4:00 PM BENCH INSPECTOR Inhaled Oxygen Concentration - - Weight 131.5 kg (290 lb) 07/29/2018 4:00 PM BENCH INSPECTOR Height 165.1 cm (5' 5) 07/29/2018 4:00 PM BENCH INSPECTOR Body Mass Index 48.26 07/29/2018 4:00 PM BENCH INSPECTOR documented in this encounter Medications at Time [...] nightly. 0 04/08/2018 05/30/2021 glucosamine/dominga dr satya Epps sod (OSTEO BI-FLEX [...] risk for: Procedure(s): LAPAROSCOPIC CHOLECYSTECTOMY WITH CHOLANGIOGRAMS H INSPECTOR Source Note - Katherine Corey NP - 08/02/2018 11:23 AM BENCH INSPECTOR [facility] Preoperative Evaluation Record Telephone Preoperative Evaluation ([facility]) - TELEPHONE ONLY, NO PHYSICAL EXAM Date: [...] ) - other. Pertinent negatives: CAD ; NE ; CABG ; valvular heart disease; valve [...] status: complete. Initial preoperative evaluation discussed with: CEHTAN CHÁVEZ Additional comments: Veronica Evangelista is a [...] Medication protocol when under care of a SURFACER OPERATOR Planned anesthesia: General Team communication plan: [...] and agree to proceed. All questions answered. H INSPECTOR H INSPECTOR documented in this encounter Miscellaneous Notes * Perioperative Nursing Note - Dariana Vu RN - 08/07/2018 4:[address] Lewis here. PT. States she feels better and wants to go home. She states she is getting her breath and not like before. States pain is fine and tolerable to abdomen. Abdomen lap sites CDI, no drainage noted. Denies nausea. Steady gait noted with movement getting dressed. Dr. Lewis with ok to DCto home. H INSPECTOR * Perioperative Nursing Note - Dariana Vu RN - 08/07/2018 3:51 PM BENCH INSPECTOR IV metoprolol given as ordered. Pt in stretcher with telemetry on ST. Still states hard to get my breath. Dr. Lewis aware and here to assess. HOB 30, o2sat RA 100%. H INSPECTOR * Perioperative Nursing Note - Dariana Vu RN - 08/07/2018 3:12 PM BENCH INSPECTOR Pt. C/o SOB and pain better. BS [...] from saline lock for going to bathroom. H INSPECTOR * Perioperative Nursing Note - Dariana Vu RN - 08/07/2018 1:58 PM BENCH INSPECTOR Denies nausea. Po pain med ordered per Dr. Lewis, waiting for to be in pyxis as pt more awake. Pain is to abdomen and back.Abdopmen lap sites x 5 cdi , abdomen x 4 and umbilicus x 1. C and DB encouraged. Taking po ice chips. H INSPECTOR * Op Note - Elli Hernandez MD [...] present and participated in the entire procedure. H INSPECTOR * Pre-Procedure Instructions - Katherine Corey NP - 08/02/2018 11:18 AM CST [facility] CPAP Clinic Location: [facility] The night before your surgery: * Do [...] your surgery: Vitamin E, Fish Oil (Lovaza, Sodus 3), Herbal medicines, Diet Pills ?? If [...] bowel prep or special diet before surgery H INSPECTOR * Pre-Procedure Instructions - Soo Palmer RN - 07/29/2018 4:08 PM BENCH INSPECTOR PRE-SURGICAL INSTRUCTIONS ?? Surgery location provided to [...] 2 days of your surgery, please call [phone] and ask for your surgeon's office Dr. Hernandez H INSPECTOR documented in this encounter Plan of Treatment Not on file documented as of this encounter Procedures Procedure Name Priority Date/Time Associated Diagnosis Comments FL FLUOROSCOPY < 1 HOUR IP Routine 08/07/2018 10:15 AM BENCH INSPECTOR SURGICAL PATHOLOGY Routine 08/07/2018 9: 51 AM BENCH INSPECTOR Cholecystitis LAPAROSCOPIC CHOLECYSTECTOMY WITH CHOLANGIOGRAMS 08/07/2018 8:25 AM BENCH INSPECTOR Cholecystitis POCT GLUCOSE DEVICE Routine Gen Lab 08/07/2018 8 :05 AM BENCH INSPECTOR POCT HCG, URINE Routine 08/07/2018 7:52 AM BENCH INSPECTOR documented in this encounter Results * FL Fluoroscopy < 1 Hour (08/07/2018 10:15 AM BENCH INSPECTOR) Narrative RAD_PACS_[facility] - 08/07/2018 10:39 AM BENCH INSPECTOR The images from this study are not interpreted by Radiology. ??Please refer to the physician's procedure / OR operative note. us Elli Hernandez MD PhD IMG FLUOROSCOPY PROCEDURE S Final Result RAD_PACS_[facility] * Surgical pathology (08/07/2018 9:51 AM BENCH INSPECTOR) Tissue (Gallbladder) 08/07/2018 9:51 AM BENCH INSPECTOR Narrative PATHOLOGY [facility] - 08/12/2018 4:48 PM BENCH INSPECTOR EPIC results best viewed via link to PDF [facility] Karlie Marlow [facility] [place] [address] SURGICAL PATHOLOGY REPORT FINAL Patient Name: ?? VERONICA EVANGELISTA Gender: ??F : ??1970 (Age: 47) Address: ??[address] [place] [phone] Hospital #: ??[id number] Taken:08/07/2018 Received:08/07/2018 Reported: 08/12/2018 Patient Type: [facility] SDS ?? Service: Surgery Location: [facility] Physician(s): ??Elli Hernandez M.D. Diagnosis: Gallbladder, [...] clip but is otherwise patent. ??Labeled A1- pharmacy services representative section of gallbladder body and fundus and shave of cystic duct remnant. ??Jar 2. rw/08/08/2018 10:38 Mauricio Oliveira MS, PA(ASCP) By this signature, I attest that the above diagnosis is based upon my personal examination of the slides(and/or other material). The performance characteristics of some immunohistochemical stains, fluorescence in-situ hybridization tests and immunophenotyping by flow cytometry cited in this report (if any) were determined by the Surgical Pathology Department at [facility] as part of an ongoing quality control specialist program and in compliance with federally mandated [...] determined by the Surgical Pathology Department of [facility]. ??It has not been cleared or approved by the U. S. Food and Drug Administration. IMAGES AND SCANNED DOCUMENTS, IF INCLUDED, ONLY VIEWABLE IN PDF VERSION OF REPORT Elli Hernandez MD PhD LAB PATHOLOGY ORDERABLES Final Result [facility] 3rd Floor [place], [place] [phone] * POCT glucose (08/07/2018 8:05 AM BENCH INSPECTOR) Pathologist [facility] Glucose, POC 94 70 - 199 mg/dL [facility] Blood specimen (specimen) 08/07/2018 8:05 AM BENCH INSPECTOR 08/07/2018 8:05 AM BENCH INSPECTOR Narrative [facility] - 08/07/2018 8:06 AM BENCH INSPECTOR Elli Hernandez MD PhD LAB POCT ORDERABLES - DEV ICE Final Result Performing Organization Address City/[facility]/ZIP Co de Phone Number [facility] Department [place] [address] * POCT hCG, urine (08/07/2018 7:52 AM BENCH INSPECTOR) Pathologist [facility] HCG, ur, POC Negative Lot Number [id number] QC Backgroud Clear Acceptable QC Control Line Acceptable Urine 08/07/2018 7:52 AM BENCH INSPECTOR Celso Klein MD POINT OF CARE TEST ORDERABL ES Final Result documented in this encounter Visit Diagnoses Diagnosis Cholecystitis- Primary Cholecystitis, unspecified documented in this encounter Admitting [...] PO., Indications: PainIndications:Pain Given 08/07/2018 4:12 PM BENCH INSPECTOR 1,000 mg fentaNYL (SUBLIMAZE) preservative free injection 50 mcg 50 mcg, intravenous, Once as needed, uncontrolled pain on PACU admission, Starting on Sun08/07/18 at 1118, For 1 dose, Phase I, Then proceed to PACU 1st line analgesic., Indications: PainIndications:Pain Given 08/07/2018 11:42 AM BENCH INSPECTOR 50 mcg haloperidol (HALDOL) 5 mg/mL injection - ADS Override Pull Starting on Sun08/07/18 at 1155, For 1 dose, IVAN DENG: cabinet override haloperidol (HALDOL) injection 1 mg 1 mg, intravenous, Administer over 5 Minutes, Once, On Sun08/07/18 at 1230, For 1 dose Given 08/07/2018 11:59 AM BENCH INSPECTOR 1 mg HYDROmorphone (DILAUDID) injection 0.2 mg 0.2 mg, intravenous, Administer over 2 Minutes, Every 10 min PRN, 1st line for pain, Starting on Sun08/07/18 at 1118, Phase I, Notify Anesthesiologist if total PACU dose reaches 2 mg and pain score 5/10 or more., Indications: PainIndications:Pain Given 08/07/2018 12:43 PM BENCH INSPECTOR 0.2 mg Given 08/07/2018 12:24 PM BENCH INSPECTOR 0.2 mg Given 08/07/2018 11:50 AM BENCH INSPECTOR 0.2 mg Lactated Ringer's (LR) infusion 30 mL/hr, intravenous, Continuous, Starting on Sun08/07/18 at 0830, Pre-Op New Bag 08/07/2018 3:41 PM BENCH INSPECTOR 30 mL/hr 30 mL/h r Lactated Ringer's (LR) infusion 30 mL/hr, intravenous, Continuous, Starting on Sun08/07/18 at 0830, Pre-Op New Bag 08/07/2018 12:38 PM BENCH INSPECTOR 30 mL/hr 30 mL/ hr New Bag 08/07/2018 8:25 AM BENCH INSPECTOR New Bag 08/07/2018 8:10 AM BENCH INSPECTOR 30 mL/hr 30 mL/hr Le ft Antecubital [...] followed by drowsiness. Given 08/07/2018 11:30 AM BENCH INSPECTOR 10 mg metoprolol (LOPRESSOR) injection 2.5 mg 2.5 mg, intravenous, Administer over 1 Minutes, Every 15 min PRN, other, prn HR>110, hold for SBP<90, Starting on Sun08/07/18 at 1512, For 2 doses Given 08/07/2018 4:00 PM BENCH INSPECTOR 2.5 mg Given 08/07/2018 3:44 PM BENCH INSPECTOR 2.5 mg ondansetron (ZOFRAN) injection 4 mg 4 mg, intravenous, Administer over 2 Minutes, Once, On Sun08/07/18 at 0830, For 1 dose, Pre-Op, Indications: Prevention of Post-Operative Nausea and VomitingIndications:Prev ention of Post-Operative Nausea and Vomiting Given 08/07/2018 8:10 AM BENCH INSPECTOR 4 mg oxyCODONE (ROXICODONE) tablet 5 mg 5 mg, oral, Once, On Sun08/07/18 at 1430, For 1 dose, Indications: PainIndications:Pain Given 08/07/2018 2:05 PM BENCH INSPECTOR 5 mg prochlorperazine (COMPAZINE) injection 10 mg 10 mg, intravenous, Administer over 2 Minutes, Once as needed, nausea, vomiting, Starting on Sun08/07/18 at 1227, For 1 dose, Phase I, If nausea/vomiting not relieved by ondansetron within 30 minutes or if ondansetron has been given within the last 6 hours. Given 08/07/2018 12:30 PM BENCH INSPECTOR 10 mg scopolamine patch 72 hour 1 patch 1 patch, transdermal, Administer over 72 Hours, Once, On Sun08/07/18 at 0830, For 1 dose, Pre-Op, Indications: Prevention of Post-Operative Nausea and VomitingIndications:Prev ention of Post-Operative Nausea and Vomiting Medication Applied 08/07/2018 8:01 AM BENCH INSPECTOR 1 patch Behind Right Ear documented in this encounter Discontinued Medications Medication [...] Recently Administered Medications Times are shown in BENCH INSPECTOR. Scheduled Medication Order 08/05/2018 08/06/2018 08/07/2018 acetaminophen (TYLENOL) tablet 1,000 mg (COMPLETED) 1,000 mg, oral, Once, On Sun08/07/18 at 1200, For 1 dose, Phase I, When able to tolerate PO., Indications: Pain 1612 (Given - Provid er: Dariana Vu, RN) haloperidol (HALDOL) injection 1 mg (COMPLETED) 1 mg, intravenous, Administer over 5 Minutes, Once, On Sun08/07/18 at 1230, For 1 dose 1159 (Given - Provid er: Ivan Deng, NEGRO)1230 (Due) ondansetron (ZOFRAN) injection 4 mg (COMPLETED) 4 mg, intravenous, Administer over 2 Minutes, Once, On Sun08/07/18 at 0830, For 1 dose, Pre-Op, Indications: Prevention of Post-Operative Nausea and Vomiting 0810 (Given - Provid er: Casie Nieves, NEGRO) oxyCODONE (ROXICODONE) tablet 5 mg (COMPLETED) 5 mg, oral, Once, On Sun08/07/18 at 1430, For 1 dose, Indications: Pain 1405 (Given - Provid er: Dariana Vu, NEGRO) scopolamine patch 72 hour 1 patch 1 patch, transdermal, Administer over 72 Hours, Once, On Sun08/07/18 at 0830, For 1 dose, Pre-Op, Indications: Prevention of Post-Operative Nausea and Vomiting 0801 (Medication Zoraida lied - Provider: Casie Nieves, NEGRO)1641 (Due: Medication Removed - Provider: Automatic Discharge [...] Intra-Op 0914 (Given - Provid er: Elli Hernandez MD PhD) metoclopramide (REGLAN) injection 10 mg [...] Intra-Op 0916 (Given - Provid er: Elli Hernandez MD PhD - Comment: wound irrigation.) sterile water irrigation (CANCELED) As needed, Starting on Sun08/07/18 at 0918, Intra-Op 0918 (Given - Provid er: Elli Hernandez MD PhD - Comment: instument soak.) documented in this encounter Orders Medications Ordered That Peng ht Not Have Been Administered Count Last Ordered Date First Ordered Date bupivacaine (MARCAINE) 0.5 % (5 mg/mL) preservative free injection 1 08/07/2018 iothalamate meglumine (CONRA Y) 60 % injection 1 08/07/2018 naloxone (NARCAN) 0.4 mg/mL injection 0.04-0.4 mg 1 08/07/2018 sodium chloride 0.9 % irrigation 2 08/07/19 19 sodium chloride 0.9% flush 0.5-20 mL 3 07/23 sterile water irrigation 1 08/07/2018 Diet Count Last Ordered Date First Orde red Date ADULT DISCHARGE DIET 1 08/07/2018 Nursing Count Last Ordered Date First Orde red Date DISCHARGE ACTIVITY 1 08/07/2018 DISCHARGE CALL PROVIDER 6 08/07/2018 DISCHARGE DRESSING 2 08/07/2018 documented in this encounter Care Teams Electric Motor Control Assembler Relationship Specialty Start Date End Date Keyonna Armstrong PA PCP - General Nurse Practitioner 06/20/18 documented as of this encounter
--- OUTSIDE RECORDS SUMMARY | 2024-07-10 23:21 | XMS_ITS | Encounter Summary ---
Author Organization [facility] Address [address] Attn: Epic Prelude ADT [place] [phone] Care Team Providers Care Signal Wirer Name Role Phone Keyonna Armstrong PHONE REPRESENTATIVE Primary Care Provider + Encounter Details Date Type Department Care Team (Latest Contact Info) Description 08/26/2019 Travel Social History Tobacco Use Types Packs/Day Years Used Date Smoking Tobacco: Never Smokeless Tobacco: Never Alcohol Use Standard Drinks/Week Comments Never 0 (1 standard drink = 0.6 oz pur e alcohol) Sex and Gender Information Value Date Recorded Sex Assigned at Not on file Gender Identity Not on file Sexual Orientation Not on file documented as of this encounter Plan of Treatment Not on file documented as of this encounter Visit Diagnoses Not on filedocumented in this encounter Care Teams Signal Wirer Relationship Specialty Start Date End Date Keyonna Armstrong, NEVAEH [address] [place] [phone] PCP - General NURSE PRACTITIONER 08/26/19 documented as of this encounter
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
--- OUTSIDE RECORDS SUMMARY | 2024-07-10 23:21 | XMS_ITS | Encounter Summary ---
Author Organization [facility] Address [address] [place] [address] Care Team Providers Care Tugboat Pilot Name Role Phone Keyonna Armstrong [employer] Primary Care Provider + Reason for Visit * Reason Onset Date Comments Referral from Dr. Armstrong 06/14/2021 Encounter Details Date Type Department Care Team (Late st Contact Info) Description 06/14/2021 Telephone [facility] Oncology and Hematology - [place] [address] [place] [address] [address] Brendan Lopez MD [address] [facility] [address] [place] [address] Armstrong Social History Tobacco Use Types Packs/Day Years [...] encounter Miscellaneous Notes * Telephone Encounter - Alejandrina Sommers - 06/14/2021 3:05 PM CST Left a vm for patient per request of Dr. Armstrong ING INSPECTOR documented in this encounter Plan of Treatment Not on file documented as of this encounter Visit Diagnoses Not on filedocumented in this encounter Care Teams Tugboat Pilot Relationship Specialty Start Date End Date Keyonna Armstrong NP [address] [place] [phone] PCP - General NURSE PRACTITIONER 08/26/19 documented as of this encounter
--- OUTSIDE RECORDS SUMMARY | 2024-07-10 23:21 | XMS_ITS | Clinical Summary ---
Author Organization [facility] Chas Davis Address [address] [place] [address] Care Team Providers Care Shipyard Laborer Name Role Phone Keyonna Armstrong LEATHER GOODS SALES REPRESENTATIVE Primary Care Provider + Allergies No known active allergies Medications Medication Sig Dispensed Refills Start Date End Date Status zolpidem (AMBIEN) 10 mg tablet 08/07/2019 Active venlafaxine (EFFEXOR XR) 75 mg Extended Release 24 hour capsule 08/03/2019 Active pantoprazole (PROTONIX) 40 mg Tablet, Delayed Release (E.C.) 08/06/2019 Active ondansetron (ZOFRAN) 4 mg Tablet TAKE 1 TABLET BY MOUTH EVERY 6 HOURS NEEDED FOR NAUSEA/VOMITING 09/01/2018 Active metoprolol succinate (TOPROL XL) 100 mg Extended Release 24 hour tablet 07/07/2019 Active metFORMIN (GLUCOPHAGE) 500 mg tablet 06/26/2019 Active LORazepam (ATIVAN) 1 mg tablet 08/26/2019 Active lisinopril (PRINIVIL) 40 mg tablet 07/07/2019 Active ENPRESSE 50-30 (6)/75-40 (5)/125-30(10) tablet 06/05/2019 Act mitzy hydroCHLOROthiazide 25 mg tablet 08/04/2019 Active buPROPion HCL (WELLBUTRIN SR) 150 mg Sustained Release 12 hour tablet 08/25/2019 Active amLODIPine (NORVASC) 5 mg tablet 08/26/2019 Active ibuprofen (MOTRIN) 800 mg tablet TAKE 1 TABLET BY MOUTH EVERY 6 HOURS NEEDED FOR PAIN. 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 Family History Medical History Relation Name Comments Cancer Brother 1 Acute lymphoblastic leukemia Father Diabetes Father Cancer Mother Diabetes Mother Cancer Sister 1 Cancer Sister 2 Relation Name Status Comments Brother 1 Alive Brother 2 Brother 3 Father Mother Sister 1 Alive sister had thyr oid cancer Sister 2 Alive sister had ovar chano cancer Social History Tobacco Use Types Packs/Day Years [...] Sign Reading Time Taken Comments Blood Pressure 104/74 08/26/2019 2:20 PM FARM SUPERVISOR Pulse 105 08/26/2019 2:20 PM FARM SUPERVISOR Temperature 36.6 ??C (97.9 ??F) 08/26/2019 2:20 PM CS T Respiratory Rate - - Oxygen Saturation 98% 08/26/2019 2:20 PM FARM SUPERVISOR Inhaled Oxygen Concentration - - Weight 135.3 kg (298 lb 3.2 oz) 08/26/2019 2:20 PM FARM SUPERVISOR Height 165.1 cm (5' 5) 08/26/2019 2:20 PM FARM SUPERVISOR Body Mass Index 49.62 08/26/2019 2:20 PM FARM SUPERVISOR Plan of Treatment Health Maintenance Due Date Last Done Comments Pre-Diabetes and Diabetes Screening 1968 HEPATITIS B VACCINES (1 of 3 - 19+ 3-dose series) 1987 CERVICAL CANCER SCREENING 1998 BREAST CANCER SCREENING 2008 FIT-DNA Q 3 years 2013 FIT/FOBT Q 1 year 2013 Flex Sig/CT Colonography Q 5 years 2013 ZOSTER VACCINE (2 of 2) 08/19/2023 06/24/2023 INFLUENZA VACCINE (#1) 2024 0, 04/22/2019 DTAP/TDAP/TD VACCINES (3 - T d or Tdap) 04/25/2026 04/25/2016, 04/25/2016 COLORECTAL SCREENING 01/11/2030 01/12/2020 Colorectal Cancer Screening 01/11/2030 PNEUMOCOCCAL VACCINE 0-64 YEARS Aged Out 05/04/2021, 04/22/2019 No longer eligible based on patient's age to complete this topic Care Teams Shipyard Laborer Relationship Specialty Start Date End Date Keyonna Armstrong NP [address] [place] [phone] PCP - General NURSE PRACTITIONER 08/26/19
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
--- OUTSIDE RECORDS SUMMARY | 2024-07-10 23:21 | XMS_ITS | Encounter Summary ---
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 Name Role Phone Keyonna Armstrong INTERNAL SECURITY MANAGER Primary Care Provider + Encounter Details Date Type Department Care Team (Late st Contact Info) Description 08/27/2019 Orders Only [facility] Oncology and Hematology - [place] [address] [place] [address] Provider, Abstract NO ADDRESS ON FILE Social History Tobacco Use Types Packs/Day Years [...] Name Priority Date/Time Associated Diagnosis Comments CBC WITH DIFFERENTIAL Routine 08/27/2019 CBC WITH DIFFERENTIAL Routine 08/27/2019 CBC WITH DIFFERENTIAL Routine 08/26/2019 documented in this encounter Results * CBC WITH DIFFERENTIAL (08/27/2019) Blood Abstract Provider HEMATOLOGY ORDERABLE S * CBC WITH DIFFERENTIAL (08/27/2019) Blood Abstract Provider HEMATOLOGY ORDERABLE S * CBC WITH DIFFERENTIAL (08/26/2019) Blood Abstract Provider HEMATOLOGY ORDERABLE S documented in this encounter Visit Diagnoses Not on filedocumented in this encounter Care Teams Piped Pocket Machine Operator Relationship Specialty Start Date End Date Keyonna Armstrong NP [address] [place] [id number] PCP - General NURSE PRACTITIONER 08/26/19 documented as of this encounter
--- OUTSIDE RECORDS SUMMARY | 2024-07-10 23:21 | XMS_ITS ---
Author Organization [facility] Address [address] [place] [address] Care Team Providers Care Utilization Manager Name Role Phone Charline West Primary Care Provider Nayla Cordero Unavailable [phone] Stella Thompson Unavailable [phone] REASON FOR VISIT anxiety, depression Medications Medication SIG (Take, Route, Frequency, Duration) Notes Start Date End Date Status Zolpidem Tartrate ER 12.5 MG 1 tablet at bedtime as needed Orally Once a day 01/21/2024 Active Zolpidem Tartrate 10 MG 1 tablet at bedtime as needed Oral once a day for 30 days 03/13/2024 Active LORazepam 1 MG 1 tablet Oral 3 times a day as needed for 30 days As needed taking over script please cancel any prior outstanding refills 01/10/2024 Active Zolpidem Tartrate ER 12.5 MG 1 tablet at bedtime as needed Oral for 30 days taking over script please cancel any prior outstanding refills 01/10/2024 Active Azithromycin 250 MG Oral Not-Taking Amoxicillin-Pot Clavulanate 875-125 MG Oral Not-T aking Mounjaro 10 MG/0.5ML Subcutaneous *Reorder fr om Medispan for eRx and Interaction Alerts* Active Metoprolol Succinate ER 100 MG Oral Active Ozempic (1 MG/DOSE) 4 MG/3ML Subcutaneous *Pick strength-form from Medispan for eRX* Not-Taking Mirtazapine 15 MG Oral Ac tive Venlafaxine HCl ER 75 MG 1 capsule in th e morning, 2 at bedtime Oral three times a day Active Lisinopril 40 MG Oral Act mitzy Ibuprofen 800 MG Oral Act mitzy Mounjaro 7.5 MG/0.5ML Subcutaneous *Reorder f rom Medispan for eRx and Interaction Alerts* Not-Taking Progesterone Micronized 200 MG Oral Active Estradiol 0.05 mg/24 hr Transdermal Active amLODIPine Besylate 5 MG Oral Active Mounjaro 2.5 MG/0.5ML Subcutaneous *Reorder f rom Medispan for eRx and Interaction Alerts* Not-Taking Pantoprazole Sodium 20 MG Oral Active Ozempic (0.25 or 0.5 MG/DOSE) 2 MG/3ML Subcutaneous *Pick strength-form from Medispan for eRX* Not-Taking Metoprolol Tartrate 100 MG Oral Active hydroCHLOROthiazide 25 MG Oral Active metFORMIN HCl 500 MG Oral Active buPROPion HCl ER (XL) 150 MG Oral Active buPROPion HCl ER (Smoking Det) 150 MG Oral Not-Leroy ing hydrOXYzine HCl 25 MG Oral Not-Taking Gabapentin 100 MG Oral Ac tive buPROPion HCl ER (SR) 150 MG Oral Not-Taking Mounjaro 5 MG/0.5ML Subcutaneous *Reorder fro m Medispan for eRx and Interaction Alerts* Not-Taking Social History Tobacco Use: Social History Observation Description Date Details (start date - stop date) Never Smoker NA - NA Sex Assigned At : Social History Observation Description Sex Assigned At Female Tobacco Control (Standard) Question Answer Notes Tobacco use: Nonsmoker AUDIT-C (Standard) Question Answer Notes Did you have a drink containing alcohol in the p ast year? No Interpretation Negative Encounters Encounter Location Date Provider Diagnosis [facility] [address] [place] [address] [address] 03/17/2024 Stella Thompson Major depressive disorder, recurrent, mild F33.0 and Generalized anxiety disorder F41.1 Assessments Encounter Date Diagnosis (ICD Code) Assessment Notes Treatment Notes Treatment Clinical Notes Section Notes 03/17/2024 Major depressive disorder, recurrent, mild (ICD-10 - F33.0) 03/17/2024 Generalized anxiety disorder (ICD-10 - F41.1) 03/17/2024 Other Client states she went through about 6 weeks ofbeing in a dark place. She is doing better now. Therapist actively listened to client and asked questions for clarification. Therapist utilized a cognitive behavioral intervention to help client explore strategies to better manage depression symptoms when they occur (volunteering, scheduling activities, etc). Plan Of Treatment Next Appt Details Follow Up: 2 Weeks, Reason: Provider Name:Nayla Jensen lavelle, 07/21/2024 10:00:00 AM, [address] [facility] [address], [facility], [place], [address], Progress Notes * PEDROKIERADOB:1970 (53 yo F)Acc No.[id number]:03/17/2024 Patient:?PEDRO KIERA Provider:?STELLA THOMPSON LCSW :1970???Age:53 Y???Sex:Female D ate:03/17/2024 Address:[address] [place], [place] [id number] Pcp:Charline Thurman SAFETY LAMP KEEPER-C Data: * Time Tracker: * Date Start Time End Time Duration User Type Captured By Mode Notes 03/17/2024 11:00 AM 11:53 AM 00:53:00 Therapist Stella Thompson anual * Chief Complaints: * ???1. Anxiety. 2. Depression . * HPI: ???History of Presenting Problem:?Psychotherapy?Stella.?Client is here today for psychotherapy to treat anxiety and depression.? Based on our session, I think the patient is making moderate progress.? At this time I do not recommend changes to the treatment plan.? I do not think the patient poses significant risk of harm to self or others at this time.? Discussed continued treatment with patient. * Behavioral History: ???Past psychiatric Hospitalization:Yes.?When and where was the last admission?:20 years ago.?increased depression ???History of suicidal attempt?:No.? * Social History:?Tobacco Use:?Tobacco Control (Standard)?Tobacco use:?Nonsmoker.?Drug/Alcohol:?Drugs?Have you used drugs other than those for medical reasons in the past 12 months??No.?AUDIT-C (Standard)?Did you have a drink containing alcohol in the past year??No,?Interpretation?Negative.?Miscellaneous:?Safety issues?Are there any firearms in the house??No.?Social History:?Household?Marital Status:?,?Number of Adults in household:?6,?Number of Children in Household:?4,?Level of Education:?Finished College.? * Medications:?Taking Gabapent in 100 MG Capsule Oral , Taking metFORMIN HCl 500 MG Tablet Oral , Taking [...] Subcutaneous , Notes to Pharmacist: *Reorder from [employer] for eRx and Interaction Alerts*, Taking LORazepam 1 MG Tablet 1 tablet Oral 3 times a day as needed As needed, Notes to Pharmacist: taking over script please cancel any prior outstanding refills, Taking Zolpidem Tartrate ER 12.5 MG Tablet Extended Release 1 tablet at bedtime as needed Oral , Notes to Pharmacist: taking over script please cancel any prior outstanding refills, Taking Zolpidem Tartrate ER 12.5 MG Tablet Extended Release 1 tablet at bedtime as needed Orally Once a day , Taking Zolpidem Tartrate 10 MG Tablet 1 tablet at bedtime as needed Oral once a day , Not-Taking buPROPion HCl ER (SR) 150 MG Tablet Extended Release 12 Hour Oral , Not-Taking Mounjaro 5 MG/0.5ML Solution Pen-injector Subcutaneous , Notes to Pharmacist: *Reorder from [employer] for eRx and Interaction Alerts*, Not-Taking hydrOXYzine HCl 25 MG Tablet Oral , Not-Taking buPROPion HCl ER (Smoking Det) 150 MG Tablet Extended Release 12 Hour Oral , Not-Taking Ozempic (0.25 or 0.5 MG/DOSE) 2 MG/3ML Solution Pen-injector Subcutaneous , Notes to Pharmacist: *Pick strength- form from Medispan for eRX*, Not-Taking Mounjaro 2.5 MG/0.5ML Solution Pen-injector Subcutaneous , Notes to Pharmacist: *Reorder from Medispan for eRx and Interaction Alerts*, Not-Taking Mounjaro 7.5 MG/0.5ML Solution Pen-injector Subcutaneous , Notes to Pharmacist: *Reorder from Medispan for eRx and Interaction Alerts*, Not- Taking Ozempic (1 MG/DOSE) 4 MG/3ML Solution Pen-injector Subcutaneous , Notes to Pharmacist: *Pick strength-form from Medispan for eRX*, Not-Taking Amoxicillin- Pot Clavulanate 875-125 MG Tablet Oral , Not-Taking Azithromycin 250 MG Tablet Oral * Examination: ???Psychiatry: ???Client is casually groomed and fully oriented. Assessment: * Assessment: 1.?Major depressive disorder , recurrent, mild - F33.0 (Primary)???2.?Generalized anxiety disorder - F41.1??? Plan: * Treatment: * Procedure Codes:?48355 PSYCH OTHERAPY W/PATIENT 60 MINUTES * Follow Up:?2 Weeks * Billing Information: * Visit Code:? * Procedure Codes:? 73556 PSYCHOTHERAPY W/PATIENT 60 MINUTES. * Sign off status: Completed Signatures: No Ad Hoc Signature Added true * Provider:?STELLA THOMPSON LCSW Date:? Generated for Corinne mae/Ceci/Roseanna on:?07/10/2024 11:21 PM HUMAN RELATIONS PROFESSOR History and Physical Notes * HPI (History of Present Illness) Category Sub-Category Detail Notes Category Not es History of Presenting Problem Psychotherapy Stella Client is here today for psychotherapy to treat anxiety and depression. Based on our session, I think the patient is making moderate progress. At this time I do not recommend changes to the treatment plan. I do not think the patient poses significant risk of harm to self or others at this time. Discussed continued treatment with patient. Examination Category Sub-Category Detail Notes Category Not es Psychiatry Client is casua lly groomed and fully oriented
--- OUTSIDE RECORDS SUMMARY | 2024-07-10 23:21 | XMS_ITS ---
Author Organization [facility] Address [address] [facility] [address] [place] [address] Care Team Providers Care Gear Cutter Name Role Phone Charline West Primary Care Provider Nayla Cordero Unavailable [phone] Sharifa Cerda Unavailable [phone] REASON FOR VISIT Lorazepam Social History Sex Assigned At : Social History Observation Description Sex Assigned At Female Encounters Encounter Location Date Provider Diagnosis [facility] [address] [facility] [address] [place] [address] 04/18/2024 Sharifa Cerda Plan Of Treatment Next Appt Details Provider Name:Nayla valderrama, 07/21/2024 10:00:00 AM, [address], [facility] [address], [place], [address], Progress Notes * KIERA EVANGELISTADOB:1970 (53 yo F)Acc No.[id number]:04/18/2024 Patient:?KIERA EVANGELISTA :1970???Age:53 Y???Sex:Female Address:[address] [place], [address] * true * Date:? Generated for Christeni carmelita/Carrillog/eTransmitting on:?07/10/2024 11:20 PM ELECTRICAL ASSEMBLER
--- OUTSIDE RECORDS SUMMARY | 2024-07-10 23:21 | XMS_ITS | Encounter Summary ---
Author Organization [facility] Address [address] [place] [address] Care Team Providers Care Business Services Intern Name Role Phone Keyonna Armstrong TONGUE STITCHER Primary Care Provider + Reason for Visit * Reason Comments Establish Care new patient care / a bnormal platelets * Eval and Treat (Routine) - Closed Specialty Diagnoses / Procedures Referred By Contac t Referred To Contact Diagnoses D69.1 Procedures office visit level 3-5 Keyonna Armstrong, [address] [place] [address] Brendan Lopez MD [address] [address] Referral ID Status Reason Start Date Expiration Date Visits Re quested Visits Authorized [id number] Closed 05/21/2019 11/17/2019 6 6 Encounter Details Date Type Department Care Team (Late st Contact Info) Description 08/26/2019 2:30 PM FISHING LURE ASSEMBLER Office Visit [facility] - [place] [facility] [address] [address] Brendan Lopez MD [address] [place] [address] Leukocytosis, unspecified type (Primary Dx); Reactive thrombocytosis Social History Tobacco Use Types Packs/Day Years [...] Comments Blood Pressure 104/74 08/26/2019 2:20 PM FISHING LURE ASSEMBLER Pulse 105 08/26/2019 2:20 PM FISHING LURE ASSEMBLER Temperature 36.6 ??C (97.9 ??F) 08/26/2019 2:20 PM CS T Respiratory Rate - - Oxygen Saturation 98% 08/26/2019 2:20 PM FISHING LURE ASSEMBLER Inhaled Oxygen Concentration - - Weight 135.3 kg (298 lb 3.2 oz) 08/26/2019 2:20 PM FISHING LURE ASSEMBLER Height 165.1 cm (5' 5) 08/26/2019 2:20 PM FISHING LURE ASSEMBLER Body Mass Index 49.62 08/26/2019 2:20 PM FISHING LURE ASSEMBLER documented in this encounter Progress Notes * Brendan Lopez MD - 08/26/2019 3:17 PM CST Hematology-oncology consult Note Requesting Physician Keyonna Armstrong NP Primary Care Physician Keyonna Armstrong NP Problem list There is no problem list on file for this patient. Previous TREATMENT ? Measurable Disease ? Reason for Visit Veronica Evangelista is a 49 y.o. female who was referred for consultation for leukocytosis and thrombocytosis. History of present illness This is a 49-year-old obese female with history of depression, anxiety and PTSD. She had labs done on a routine visit in April 2019 that showed WBC count of 14.1 with platelet of 423,000.According to the patient she was not sick at that time. She denies any weight loss. She was startedon Wellbutrin about 3 weeks ago for depression and has been dealing with some chills and night sweats at this time. She denies any fevers. She has no new lumps bumps and lymphadenopathy. She has occasional migraine headache. She also complained of lower back pain which is chronic in nature. He denies any bleeding other than her normal menstrual bleeding. No other new complaints. Past Medical History Past Medical History: Diagnosis Date ??? Blurred vision ??? Cold feeling ??? Depression ??? HTN (hypertension) ??? Night sweats Chronic lower back pain Migraine headache PTSD Surgical History Past Surgical History: Procedure Laterality Date ??? HX CHOLECYSTECTOMY Bilateral 2018 Medications Current Outpatient Medications Medication Sig Dispense Refill ??? ondansetron (ZOFRAN) 4 mg Tablet TAKE 1 TABLET BY MOUTH EVERY 6 HOURS NEEDED FOR NAUSEA/VOMITING ??? ibuprofen (MOTRIN) 800 mg tablet TAKE 1 TABLET BY MOUTH EVERY 6 HOURS NEEDED FOR PAIN. ??? zolpidem (AMBIEN) 10 mg tablet ??? venlafaxine (EFFEXOR XR) 75 mg Extended Release 24 hour capsule ??? pantoprazole (PROTONIX) 40 mg Tablet, Delayed Release (E.C.) ??? metoprolol succinate (TOPROL XL) 100 mg Extended Release 24 hour tablet ??? metFORMIN (GLUCOPHAGE) 500 mg tablet ??? LORazepam (ATIVAN) 1 mg tablet ??? lisinopril (PRINIVIL) 40 mg tablet ??? ENPRESSE 50-30 (6)/75-40 (5)/125-30(10) tablet ??? hydroCHLOROthiazide 25 mg tablet ??? buPROPion HCL (WELLBUTRIN SR) 150 mg Sustained Release 12 hour tablet ??? amLODIPine (NORVASC) 5 mg tablet No current facility-administered medications for this visit. Allergies No Known Allergies Immunizations: There is no immunization history on file for this patient. Family History Family History Problem Relation Name Age of Onset ??? Diabetes Father ??? Acute lymphoblastic leukemia Father ??? Cancer Mother ??? Diabetes Mother ??? Cancer Brother ??? Cancer Sister ??? Cancer Sister Social History Social History Tobacco Use ??? Smoking status: Never Smoker ??? Smokeless tobacco: Never Used Substance Use Topics ??? Alcohol use: Never Frequency: Never Review of Systems Constitutional: No fever; no night sweats; no anorexia; no weight loss; no fatique NEENT: No headache; no change in vision; no change in hearing; no sore throat; no dysphagia Respiratory: No shortness of breath; no pleuritic chest pain; no cough; no hemoptysis Cardiac: No cardiac-like chest pain; no palpitations; no orthopnea; no PND; no ABRAHAM Breasts: No tenderness; no masses GI: No abdominal pain; no nausea; no vomiting; no diarrhea; no hematochezia; no melena : No dysuria; no frequency; no hesitancy; no hematuria TRAFFIC PERSONNEL SUPERVISOR: Musculosketetal: Complain of chronic lower back pain Skin: no pruritis; no rash; no petechiae; no ecchymoses Endocrine: no polydipsia; no polyuria; no unusual weight gain Neuro: Occasional migraine headache; no change in vision; no sensory changes; no muscle weakness; no confusion; no seizures Psych: no anxiety; no depression; Physical Exam Vitals: As per nursing note Constitutional: Well developed, well nourished, no acute distress, non-toxic appearance Teeth and gum. No signs of infection or swelling. Eyes: PERRL, conjunctiva normal HEENT: Atraumatic, external ears normal, nose normal, oropharynx moist, no pharyngeal exudates. no sinus tenderness Neck- normal range of motion, no tenderness, supple Respiratory: No respiratory distress, normal breath sounds, no rales, no wheezing Cardiovascular: Normal rate, normal rhythm, no murmurs, no gallops, no rubs GI: Soft, nondistended, normal bowel sounds, nontender, no splenomegaly, no hepatomegaly, no mass, no rebound, no guarding : No costovertebral angle tenderness Musculoskeletal: No edema, no tenderness, no deformities. Back- no tenderness Integument: Well hydrated, no rash, Digits and nails inspection normal Lymphatic: No lymphadenopathy noted Neurologic: Alert & oriented x 3, CN 2-12 normal, normal motor function, normal sensory function, no focal deficits noted Psychiatric: Speech and behavior appropriate ? labs No results found for this or any previous visit (from the past 24 hour(s)). Labs from April 22, 2019 showed WBC 14.1 hemoglobin 13.7 MCV 87.3 platelet 423,000 neutrophils 59%both at 32%. Pathology ? Imaging & Other Studies Performance Status? Assessment / Plan: ? Leukocytosis and thrombocytosis. This is a 49-year-old obese female who had labs done during the routine visit back in April that showed elevated WBC count and platelet count. According to the patient she was not sick at that time. He had labs repeated twice since then and they were allelevated. She denies any fevers but does have some chills and night sweats since Wellbutrin was started about 3 weeks ago. She denies any weight loss. She also denies any new lumps bumps and lymphadenopathy. I have discussed the differential diagnosis of leukocytosis and thrombocytosis with the patient that includes reactive process mostly. This could be due to her chronic lower back pain and migraine headaches. I do not see any evidence of lymphadenopathy and hepatosplenomegaly on my examination today. I will order the work-up that would include CBC with differential, CMP, C-reactive protein, sedimentation rate and flow cytometric analysis for leukemia panel. I will also order iron studies. I have answered all the questions to patient satisfaction. She will be back to see me in 2 weeks. Thank you very much for allowing me to participate in Veronica Evangelista's evaluation and management. Please feel free to contact if I can be of any further assistance in your patient???s care requiring hematology or oncology evaluation. Sincerely, ? ? Brendan Lopez M.D. cell TOBACCO COUNSELING She is not a tobacco user. Brendan Lopez MD ,08/26/2019 3:17 PM ? Total time spent 80 minutes, two third of the total time spent counseling patient [id number]. CC:?Keyonna Armstrong NP ING LURE ASSEMBLER documented in this encounter Plan of Treatment Scheduled Orders Name Type Priority Associated Diagnoses Orde r Schedule C-REACTIVE PROTEIN Lab Routine Leukocytosis, unspecified type Ordered: 08/26/2019 SEDIMENTATION RATE Lab Routine Leukocytosis, unspecified type Ordered: 08/26/2019 LACTATE DEHYDROGENASE Lab Routine Leukocytosis, unspecified type Ordered: 08/26/2019 documented as of this encounter Procedures Procedure Name Priority Date/Time Associated Diagnosis Comments FLOW CYTOMETRY PANEL Routine 08/29/2019 Leukocytosis, unspecified type IRON, TIBC, AND PERCENT SATURATION Routine 08/26/2019 Reactive thrombocytosis CBC WITH DIFFERENTIAL Routine 08/26/2019 Leukocytosis, unspecified type FERRITIN Routine 08/26/2019 Reactive thrombocytosis COMPREHENSIVE METABOLIC PANEL Routine 08/26/2019 Leukocytosis, unspecified type documented in this encounter Results * FLOW CYTOMETRY PANEL (08/29/2019) Blood BLOOD SPECIMEN / Unknown Brendan Lopez MD PATHOLOGY/CYTOLOGY O RDERABLES Performing Organization Address [facility] Co de Phone Number EXTERNAL LAB * IRON, TIBC, AND PERCENT SATURATION (08/26/2019) Blood Brendan Lopez MD CHEMISTRY ORDERABLES Performing Organization Address [facility] de Phone Number EXTERNAL LAB * FERRITIN (08/26/2019) Blood Brendan Lopez MD CHEMISTRY ORDERABLES Performing Organization Address [facility] Co de Phone Number EXTERNAL LAB * COMPREHENSIVE METABOLIC PANEL (08/26/2019) Blood Brendan Lopez MD CHEMISTRY ORDERABLES Performing Organization Address [facility] de Phone Number EXTERNAL LAB * CBC WITH DIFFERENTIAL (08/26/2019) Blood Brendan Lopez MD HEMATOLOGY ORDERABLE S Performing Organization Address [facility] de Phone Number EXTERNAL LAB documented in this encounter Visit Diagnoses Diagnosis Leukocytosis, unspecified type- Primary Reactive thrombocytosis documented in this encounter Care Teams Business Services Intern Relationship Specialty Start Date End Date Keyonna Armstrong NP [address] [place] [address] PCP - General NURSE PRACTITIONER 08/26/19 documented as of this encounter
--- OUTSIDE RECORDS SUMMARY | 2024-07-11 00:09 | XMS_ITS | Encounter Summary ---
Author Organization [facility] Address [address] [place] [address]. [place], [place] [address] [place] [address] Care Team Providers Care Platform Engineer Name Role Phone Keyonna Armstrong Primary Care Provider [phone] Reason for Visit * Reason Onset Date Comments Appointment Request 03/21/2024 Encounter Details Date Type Department Care Team (Late st Contact Info) Description 03/21/2024 [place] [address] Susi Parikh, RMA Appointment Request Social History [...] CDT Gender Identity Female 07/17/2022 10:27 AM EMERGENCY SERVICES DIRECTOR Sexual Orientation Straight 07/17/2022 10 :27 AM EMERGENCY SERVICES DIRECTOR documented as of this encounter Progress Notes * TINO Knowles - 03/21/2024 1:44 PM CDT Returned call and left message to schedule consult. (No contact ltr was sent to ordering on 12.18.23) documented in this encounter Plan of Treatment Upcoming Encounters Date Type Department Care Team (Late st Contact Info) Description 07/25/2024 10:00 AM EMERGENCY SERVICES DIRECTOR Office Visit [facility] Family & Internal Medicine - [place] [address] [place] [address] Keyonna Armstrong APNP [address] [place] [address] 07/31/2024 10:15 AM EMERGENCY SERVICES DIRECTOR Office Visit [facility] [address] [place] [address] Pepe Mitchell MD [facility]. [facility] [address] [place] [address] documented as of this encounter Visit Diagnoses Not on filedocumented in this encounter Additional Health Concerns Assessment Noted Time PHQ-9 Depression Total Score: 22 020 3:46 PM EMERGENCY SERVICES DIRECTOR documented as of this encounter Care Teams Platform Engineer Relationship Specialty Start Date End Date Keyonna Armstrong APNP [address] [place] [phone] PCP - General NURSE PRACTITIONER 05/06/18 documented as of this encounter
--- OUTSIDE RECORDS SUMMARY | 2024-07-11 00:09 | XMS_ITS | Encounter Summary ---
Author Organization [facility] Address [address] [place] [address]. [place] [id number] [place] [address] Care Team Providers Care Legal Instructor Name Role Phone Keyonna Armstrong Primary Care Provider [phone] Reason for Visit * Reason Onset Date Comments Orders 10/17/2023 Encounter Details Date Type Department Care Team (Late st Contact Info) Description 10/17/2023 Telephone [facility] Family & Internal Medicine [facility] [address] [place] [phone] Keyonna Armstrong APNP [address] [place], [place] [phone] Orders Social History Tobacco Use Types Packs/Day [...] Gender Identity Female 07/17/2022 10:27 AM AGRICULTURAL ENGINEERING TECHNOLOGIST Sexual Orientation Straight 07/17/2022 10 :27 AM AGRICULTURAL ENGINEERING TECHNOLOGIST documented as of this encounter Progress [...] what exactly is ready for her to pick out hand as it may just be a medication. I * Susi Connell - 10/25/2023 10:46 AM CDT Has been getting calls for both [facility] hand something for a study as well as a place in [place] or [place] about the sleep study. She is confused as to who to call. * Claritza Velázquez MA - 10/23/2023 9:27 AM CDT LMOM to call back if still having questions regarding sleep study. Also informed sending [employer] message as well, if choosing to reply to that message. * Adri Oviedo - 10/17/2023 12:30 PM CDT Pt called back no one available stated okay to call back. Pt has questions about sleep study. * Flora Blackwell MA - 10/17/2023 10:20 AM CDT Received a call from [facility] sleep lab that patient was confused on the process of receiving the home sleep study and she thought that she picked this up from [facility]? LM 10/17/23 Need to inform patient that she would pick this up from [facility]. She will need a smart phone for the testing and the test is disposable and not need to be returned as long as she has a smart phone. tn documented in this encounter Plan of Treatment Upcoming Encounters Date Type Department Care Team (Late st Contact Info) Description 07/25/2024 10:00 AM AGRICULTURAL ENGINEERING TECHNOLOGIST Office Visit [facility] Family & Internal Medicine - [place] [address] [place] [address] Keyonna Armstrong APNP [address] [place] [address] 07/31/2024 10:15 AM AGRICULTURAL ENGINEERING TECHNOLOGIST Office Visit [facility] THREE [facility], [facility] [address] [place] [address] Pepe Mitchell MD Three [facility]. [place] [address] [place] [address] documented as of this encounter Visit Diagnoses Not on filedocumented in this encounter Additional Health Concerns Assessment Noted Time PHQ-9 Depression Total Score: 22 020 3:46 PM AGRICULTURAL ENGINEERING TECHNOLOGIST documented as of this encounter Care Teams Legal Instructor Relationship Specialty Start Date End Date Keyonna Armstrong APNP [address] [place] [address] PCP - General NURSE PRACTITIONER 05/06/18 documented as of this encounter
--- OUTSIDE RECORDS SUMMARY | 2024-07-11 00:09 | XMS_ITS | Encounter Summary ---
Author Organization [facility] Address [address] [place] [address]. [place], [place] [phone] [place] [address] Care Team Providers Care Chemical Recovery Operator Name Role Phone Keyonna Armstrong Primary Care Provider [phone] Encounter Details Date Type Department Care Team [...] CDT Gender Identity Female 07/17/2022 10:27 AM ELEMENTARY ASSISTANT TEACHER Sexual Orientation Straight 07/17/2022 10 :27 AM ELEMENTARY ASSISTANT TEACHER documented as of this encounter Plan of Treatment Upcoming Encounters Date Type Department Care Team ( Contact Info) Description 07/25/2024 10:00 AM ELEMENTARY ASSISTANT TEACHER Office Visit [facility] Family & Internal Medicine [address] [address] Keyonna Armstrong APNP [address] [place] [address] 07/31/2024 10:15 AM ELEMENTARY ASSISTANT TEACHER Office Visit [facility] THREE [facility], [facility] [address] [place], [place] [address] Pepe Mitchell MD Three [facility]. [facility] [address] [place] [address] documented as of this encounter Visit Diagnoses Not on filedocumented in this encounter Additional Health Concerns Assessment Noted Time PHQ-9 Depression Total Score: 22 020 3:46 PM ELEMENTARY ASSISTANT TEACHER documented as of this encounter Care Teams Chemical Recovery Operator Relationship Specialty Start Date End Date Keyonna Armstrong APNP [address] [place] [address] PCP - General NURSE PRACTITIONER 05/06/18 documented as of this encounter
--- OUTSIDE RECORDS SUMMARY | 2024-07-11 00:09 | XMS_ITS | Encounter Summary ---
Author Organization [facility] Address [address] [place] [address]. [place], [place] [phone] [place] [address] Care Team Providers Care Machine Silver Stripper Name Role Phone Keyonna Armstrong Primary Care Provider [phone] Reason for Visit * Reason Onset Date Comments Consult 03/28/2024 Encounter Details Date Type Department Care Team (Late st Contact Info) Description 03/28/2024 [place] [address] Susi Parikh, RMA Consult Social History Tobacco [...] CDT Gender Identity Female 07/17/2022 10:27 AM GROUP CARE WORKER Sexual Orientation Straight 07/17/2022 10 :27 AM GROUP CARE WORKER documented as of this encounter Progress Notes * TINO Knowles - 03/28/2024 2:32 PM CDT Left message to schedule cardiology consult per Keyonna Armstrong NP documented in this encounter Plan of Treatment Upcoming Encounters Date Type Department Care Team (Late st Contact Info) Description 07/25/2024 10:00 AM GROUP CARE WORKER Office Visit [facility] Family & Internal Medicine - [place] [address] [place] [address] Keyonna Armstrong APNP [address] [place] [address] 07/31/2024 10:15 AM GROUP CARE WORKER Office Visit [facility] THREE [facility], [facility] [address] [place] [address] Pepe Mitchell MD Three [facility]. [facility] [address] [place] [address] documented as of this encounter Visit Diagnoses Not on filedocumented in this encounter Additional Health Concerns Assessment Noted Time PHQ-9 Depression Total Score: 22 020 3:46 PM GROUP CARE WORKER documented as of this encounter Care Teams Machine Silver Stripper Relationship Specialty Start Date End Date Keyonna Armstrong APNP [facility] [place] [address] PCP - General NURSE PRACTITIONER 05/06/18 documented as of this encounter
--- OUTSIDE RECORDS SUMMARY | 2024-07-11 00:09 | XMS_ITS | Encounter Summary ---
Author Organization [facility] Address [address] [place] [address]. [place], [place] [address] [place] [address] Care Team Providers Care Line Tester Name Role Phone Keyonna Armstrong Primary Care Provider [phone] Encounter Details Date Type Department Care Team (Late Contact Info) Description 02/26/2024 Orders Only [facility] Medical Group Family & Internal Medicine [address] [address] Aries Marshall E, RTR Social [...] Gender Identity Female 07/17/2022 10:27 AM COAT CHECKER Sexual Orientation Straight 07/17/2022 10 :27 AM COAT CHECKER documented as of this encounter Plan of Treatment Upcoming Encounters Date Type Department Care Team (Late st Contact Info) Description 07/25/2024 10:00 AM COAT CHECKER Office Visit [facility] Medical Group Family & Internal Medicine - [place] [address] [place] [address] Keyonna Armstrong APNP [address] [place] [address] 07/31/2024 10:15 AM COAT CHECKER Office [facility] THREE [facility], [facility] [address] [place] [address] Pepe Mitchell MD Three [facility]. [facility] [address] [place], [place] [address] documented as of this encounter Visit Diagnoses Diagnosis Gastroesophageal reflux disease Esophageal reflux documented in this encounter Additional Health Concerns Assessment Noted Time PHQ-9 Depression Total Score: 22 020 3:46 PM COAT CHECKER documented as of this encounter Care Teams Line Tester Relationship Specialty Start Date End Date Keyonna Armstrong APNP [address] [place] [address] PCP - General NURSE PRACTITIONER 05/06/18 documented as of this encounter
--- OUTSIDE RECORDS SUMMARY | 2024-07-11 00:09 | XMS_ITS | Encounter Summary ---
Author Organization [facility] Address [address] [place] [address]. [place] [id number] [place] [address] Care Team Providers Care Rigging And Controls Aircraft Mechanic Name Role Phone Keyonna Armstrong Primary Care Provider [phone] Reason for Visit * Reason Onset Date Comments Information 11/27/2023 Encounter Details Date Type Department Care Team (Late st Contact Info) Description 11/27/2023 Telephone [facility] Family & Internal Medicine [facility] [address] [place] [address] Keyonna Armstrong APNP [address] [place] [address] Information Social History Tobacco Use [...] CDT Gender Identity Female 07/17/2022 10:27 AM KEY FILER Sexual Orientation Straight 07/17/2022 10 :27 AM KEY FILER documented as of this encounter Progress Notes * Claritza Velázquez MA - 11/27/2023 4:08 PM CDT If they call back, tell them to send a fax asking for clarification. This makes no sense. * Adri Oviedo - 11/27/2023 3:57 PM CDT [facility] called in stated needing Diagnosis information for diabetes or CHF. Please advise. documented in this encounter Plan of Treatment Upcoming Encounters Date Type Department Care Team (Late st Contact Info) Description 07/25/2024 10:00 AM KEY FILER Office Visit [facility] Group Family & Internal Medicine [facility] [address] [place] [address] Keyonna Armstrong APNP [address] [place] [address] 07/31/2024 10:15 AM KEY FILER Office [facility] THREE [facility], [facility] [address] [place] [address] Pepe Mitchell MD Three [facility]. [facility] [address] [place] [address] documented as of this encounter Visit Diagnoses Not on filedocumented in this encounter Additional Health Concerns Assessment Noted Time PHQ-9 Depression Total Score: 22 020 3:46 PM KEY FILER documented as of this encounter Care Teams Rigging And Controls Aircraft Mechanic Relationship Specialty Start Date End Date Keyonna Armstrong APNP [facility] [place] [address] PCP - General NURSE PRACTITIONER 05/06/18 documented as of this encounter
--- OUTSIDE RECORDS SUMMARY | 2024-07-11 00:09 | XMS_ITS | Encounter Summary ---
Author Organization [facility] Address [address] [place] [address]. [place], [place] [address] [place] [address] Care Team Providers Care Senior Electrical Estimator Name Role Phone Keyonna Armstrong Primary Care Provider [phone] Encounter Details Date Type Department Care Team [...] CDT Gender Identity Female 07/17/2022 10:27 AM HOUSE FATHER Sexual Orientation Straight 07/17/2022 10 :27 AM HOUSE FATHER documented as of this encounter Plan of Treatment Upcoming Encounters Date Type Department Care Team ( Contact Info) Description 07/25/2024 10:00 AM HOUSE FATHER Office Visit [facility] Family & Internal Medicine [address] [address] Keyonna Armstrong APNP [address] [place] [address] 07/31/2024 10:15 AM HOUSE FATHER Office Visit [facility] THREE [facility], [facility] [address] [place] [address] Pepe Mitchell MD Three [facility]. [facility] [address] [place] [address] documented as of this encounter Visit Diagnoses Not on filedocumented in this encounter Additional Health Concerns Assessment Noted Time PHQ-9 Depression Total Score: 22 020 3:46 PM HOUSE FATHER documented as of this encounter Care Teams Senior Electrical Estimator Relationship Specialty Start Date End Date Keyonna Armstrong APNP [address] [place] [address] PCP - General NURSE PRACTITIONER 05/06/18 documented as of this encounter
--- OUTSIDE RECORDS SUMMARY | 2024-07-11 00:09 | XMS_ITS | Encounter Summary ---
Author Organization [facility] Address [address] [place] [address]. [place] [phone] [place], [place] [phone] Care Team Providers Care Postpartum Rn Name Role Phone Keyonna Armstrong Primary Care Provider [phone] Reason for Visit * Reason Onset Date Comments Question 08/30/2023 Encounter Details Date Type Department Care Team (Late st Contact Info) Description 08/30/2023 Telephone [facility] Family & Internal Medicine [facility] [address] [place] [address] Keyonna Armstrong APNP [address] [place] [address] Question Social History Tobacco Use [...] CDT Gender Identity Female 07/17/2022 10:27 AM PAY STATION DEPARTMENT MANAGER Sexual Orientation Straight 07/17/2022 10 :27 AM PAY STATION DEPARTMENT MANAGER documented as of this encounter Progress Notes * Claritza Velázquez MA - 09/17/2023 4:16 PM CST Pt needs new sleep study. Appt scheduled for VV 10/03. STATION DEPARTMENT MANAGER * Rose Young MA - 09/17/2023 3:24 PM CST Pt's cpap was recalled a few years ago. She was unaware. She needs new cpap and all supplies. STATION DEPARTMENT MANAGER * Rose Young MA - 09/17/2023 2:41 PM CST Spoke with pt, she states new insurance will not allow her to use [employer] anymore so she will have touse [employer]. She is checking her machine to make sure it has not been recalled since she's had it before [facility] recalled a large number of their Cpaps, she will let the office know and we will go from there as far as what equipment she needs STATION DEPARTMENT MANAGER * Maria Eugenia Blanco - 09/10/2023 4:11 PM CST LVM asking patient to return our call and advise if she is needing CPAP supplies from [facility] and if so, what supplies does she need to be ordered. STATION DEPARTMENT MANAGER documented in this encounter Plan of Treatment Upcoming Encounters Date Type Department Care Team (Late st Contact Info) Description 07/25/2024 10:00 AM PAY STATION DEPARTMENT MANAGER Office Visit [facility] Family & Internal Medicine - [place] [address] [place] [address] Keyonna Armstrong APNP [address] [place] [address] 07/31/2024 10:15 AM PAY STATION DEPARTMENT MANAGER Office [facility] THREE [facility], [facility] [address] [place] [address] Pepe Mitchell MD Three [facility]. [place] [address] [place] [address] documented as of this encounter Visit Diagnoses Not on filedocumented in this encounter Additional Health Concerns Assessment Noted Time PHQ-9 Depression Total Score: 22 020 3:46 PM PAY STATION DEPARTMENT MANAGER documented as of this encounter Care Teams Postpartum Rn Relationship Specialty Start Date End Date Keyonna Armstrong APNP [address] [place] [address] PCP - General NURSE PRACTITIONER 05/06/18 documented as of this encounter
--- OUTSIDE RECORDS SUMMARY | 2024-07-11 00:09 | XMS_ITS | Encounter Summary ---
Author Organization [facility] Address [address] [place] [address]. [place], [place] [address] [place] [address] Care Team Providers Care Dry House Wheeler Name Role Phone Keyonna Armstrong Primary Care Provider [phone] Encounter Details Date Type Department Care Team [...] CDT Gender Identity Female 07/17/2022 10:27 AM FINANCIAL SALES REPRESENTATIVE Sexual Orientation Straight 07/17/2022 10 :27 AM FINANCIAL SALES REPRESENTATIVE documented as of this encounter Plan of Treatment Upcoming Encounters Date Type Department Care Team ( Contact Info) Description 07/25/2024 10:00 AM FINANCIAL SALES REPRESENTATIVE Office Visit [facility] Group Family & Internal Medicine [address] [address] Keyonna Armstrong APNP [address] [place] [address] 07/31/2024 10:15 AM FINANCIAL SALES REPRESENTATIVE Office [facility] THREE [facility], [facility] [address] [place], [place] [address] Pepe Mitchell MD Three [facility]. [facility] [address] [place] [address] documented as of this encounter Visit Diagnoses Not on filedocumented in this encounter Additional Health Concerns Assessment Noted Time PHQ-9 Depression Total Score: 22 020 3:46 PM FINANCIAL SALES REPRESENTATIVE documented as of this encounter Care Teams Dry House Wheeler Relationship Specialty Start Date End Date Keyonna Armstrong APNP [address] [place] [address] PCP - General NURSE PRACTITIONER 05/06/18 documented as of this encounter
--- OUTSIDE RECORDS SUMMARY | 2024-07-11 00:09 | XMS_ITS | Encounter Summary ---
Author Organization [facility] Address [address] [place] [address]. [place] [phone] [place], [place] [phone] Care Team Providers Care Bean Picker Name Role Phone Keyonna Armstrong Primary Care Provider [phone] Reason for Visit * Reason Comments Sleep Apnea Needs Feedback/Test Results Encounter Details Date Type Department Care Team (Late st Contact Info) Description 02/27/2024 8:40 AM CDT Office Visit [facility] Group Family & Internal Medicine [facility] [address] [place] [address] Keyonna Armstrnog APNP [address] [place], [place] [phone] Sleep Apnea; Needs Feedback/Test Results Social History [...] CDT Gender Identity Female 07/17/2022 10:27 AM STEEPING PRESS TENDER Sexual Orientation Straight 07/17/2022 10 :27 AM STEEPING PRESS TENDER documented as of this encounter Last Filed [...] from the original note were not included. [facility] FAMILY AND INTERNAL MEDICINE OFFICE VISIT Reason [...] Tachycardia was noted during this study. RECOMMENDATIONS [place] treatment option should be discussed with the [...] snoring and other sleeprelated issues, such as TICKETER depressants, especially at bedtime Ample time given [...] 09/20/2017 Cholecystitis 06/11/2018 Depression 06/19/2012 Diabetes mellitus ([facility]) Esophageal reflux 04/22/2013 Hypertension 06/19/2012 Insomnia 04/02/2018 Menorrhagia 04/02/2018 Morbid obesity ([facility]) 09/23/2013 Obstructive sleep apnea 08/02/2012 Sinus tachycardia 09/20/2017 Surgical History: Past Surgical History: Procedure Laterality Date CHOLECYSTECTOMY COLONOSCOPY N/A 01/12/2020 COLONOSCOPY SCREENING performed by Burt Payne MD at [facility] GASTRIC BYPASS N/A 2004 Social History: Social [...] Recurrent major depressive disorder, in partial remission ([facility]) Chronic buPROPion SR (ZYBAN)150 MG 12 hr tablet 10. Morbid (severe) obesity due to excess calories ([facility]) Recommendations and Plan: 1. Primary hypertension - [...] the day of the encounter. This includes eajl-[id number] and xsw-fgxj-en-face time I provided on the day of [...] since this is not an admission. PCP: YOBAIN Cruz 02/27/2024 documented in this encounter Plan of Treatment Upcoming Encounters Date Type Department Care Team (Late st Contact Info) Description 07/25/2024 10:00 AM STEEPING PRESS TENDER Office Visit [facility] Medical Group Family & Internal Medicine - [address] [address] Keyonna Armstrong APNP [address] [place] [address] 07/31/2024 10:15 AM STEEPING PRESS TENDER Office Visit [place] [facility] THREE [facility] [place] [address] [place] [address] Pepe Mitchell MD Three [facility]. [place] [address] [place] [address] documented as of this encounter Visit Diagnoses [...] Recurrent major depressive disorder, in partial remission ([facility]) Morbid (severe) obesity due to excess calories ([facility]) documented in this encounter Additional Health Concerns Assessment Noted Time PHQ-9 Depression Total Score: 22 020 3:46 PM STEEPING PRESS TENDER documented as of this encounter Care Teams Bean Picker Relationship Specialty Start Date End Date Keyonna Armstrong APNP [facility]1 [place] [address] PCP - General NURSE PRACTITIONER 05/06/18 documented as of this encounter
--- OUTSIDE RECORDS SUMMARY | 2024-07-11 00:09 | XMS_ITS | Encounter Summary ---
Author Organization [facility] Address [address] [place] [address]. [place] [address] Care Team Providers Care Cnc Lathe Machine Operator Name Role Phone Aracely Armstrong Primary Care Provider [phone] Reason for Referral * Sleep Lab (Routine) - Closed Specialty Diagnoses / Procedures Referred By Contgoldy t Referred To Contact Diagnoses Obstructive sleep apnea Other fatigue Anxiety Primary insomnia Procedures Home Sleep Study - WatchPat (42211/G0400) Aracely Armstrong APNP [address] [place] [address] Phone: tel: fax: Referral ID Status Reason Start Date Expiration Date Visits Re quested Visits Authorized [id number] Closed 10/04/2023 10/03/2024 1 1 Reason for Visit * Reason Comments Sleep Apnea Encounter Details Date Type Department Care Team (Late st Contact Info) Description 10/04/2023 11:00 AM CDT Telemedicine [facility] Family & Internal Medicine - [place] [address] [place] [address] Aracely Armstrong APNP [address], [place] [id number] Sleep Apnea Social History Tobacco Use Types [...] CDT Gender Identity Female 07/17/2022 10:27 AM HOME ENERGY CONSULTANT SUPERVISOR Sexual Orientation Straight 07/17/2022 10 :27 AM HOME ENERGY CONSULTANT SUPERVISOR documented as of this encounter Progress Notes * Aracely Armstrong, APNP - 10/04/2023 11:00 AM CDT Images from the original note were not included. [facility] FAMILY AND INTERNAL MEDICINE OFFICE VISIT I introduced and identified myself, received verbal consent from the patient to proceed with this video visit and made the patient aware that the same confidentiality and information technology assistant practices apply. The patient joined the video [...] she was seen in the ER at [place] in the last couple of months and [...] 09/20/2017 Cholecystitis 06/11/2018 Depression 06/19/2012 Diabetes mellitus ([facility]) Esophageal reflux 04/22/2013 Hypertension 06/19/2012 Insomnia 04/02/2018 Menorrhagia 04/02/2018 Morbid obesity ([facility]) 09/23/2013 Obstructive sleep apnea 08/02/2012 Sinus tachycardia 09/20/2017 Surgical History: Past Surgical History: Procedure Laterality Date CHOLECYSTECTOMY COLONOSCOPY N/A 01/12/2020 COLONOSCOPY SCREENING performed by Burt Payne MD at [facility] GI GASTRIC BYPASS N/A 2004 Social History: [...] apnea Chronic Home Sleep Study - WatchPat (18201/G0400) 2. Other fatigue Home Sleep Study - WatchPat (62514/G0400) 3. Anxiety Chronic Home Sleep Study - WatchPat (83152/G0400) 4. Primary insomnia Chronic Home Sleep Study - WatchPat (19602/G0400) Recommendations and Plan: 1. Obstructive sleep apnea - Home Sleep Study - WatchPat (68108/G0400); Future 2. Other fatigue - Home Sleep Study - WatchPat (49669/G0400); Future 3. Anxiety - Home Sleep Study - WatchPat (69778/G0400); Future 4. Primary insomnia - Home Sleep Study - WatchPat (60787/G0400); Future Home sleep study ordered. Patient is aware she will have to follow-up in office to discuss results.Awaiting recent [place] ER notes Orders Placed This Encounter Home Sleep Study - WatchPat (88146/G0400) estradiol (VIVELLE-DOT) 0.05 MG/24HR patch vitamin D3 [...] st Contact Info) Description 07/25/2024 10:00 AM HOME ENERGY CONSULTANT SUPERVISOR Office Visit [facility] Family & Internal Medicine - [address] [phone] Aracely Armstrong APNP [address] [place] [address] 07/31/2024 10:15 AM HOME ENERGY CONSULTANT SUPERVISOR Office Visit [facility] [address] [place] [address] Pepe Mitchell MD Three [facility]. [facility] [address] [place], [place] [address] documented as of this encounter Results * Home Sleep Study - WatchPat (29918/G0400) (01/04/2024 11:30 AM CDT) Narrative [facility] - 01/04/2024 11:30 AM CDT Deondre Wheat MD ? 01/09/2024 ??2:02 PM Patient Information First Name: KIERA Last Name: TONJA ID: [id number] Date: 1970 Age: 53 Gender: Female BMI: [...] Tachycardia was noted during this study. RECOMMENDATIONS [place] treatment option should be discussed with the [...] snoring and other sleep-related issues, such as CHRISTIAN SCIENCE READER depressants, especially at bedtime. Raw data reviewed and electronically signed by: Deondre Wheat ??on 01/09/2024 2:01:02 PM at ??7:01:06PM, [facility] us Aracely Armstrong [facility] ORDERABLES Fin al Result [facility] [address] [place] [phone], documented in this encounter Visit Diagnoses Diagnosis [...] Total Score: 22 07/29/ 020 3:46 PM HOME ENERGY CONSULTANT SUPERVISOR documented as of this encounter Care Teams Cnc Lathe Machine Operator Relationship Specialty Start Date End Date Aracely Armstrong APNP [address] [place] [id number] PCP - General NURSE PRACTITIONER 05/06/18 documented as of this encounter
--- OUTSIDE RECORDS SUMMARY | 2024-07-11 00:09 | XMS_ITS | Encounter Summary ---
Author Organization [facility] Address [address] [place] [address]. [place] [id number] [place] [address] Care Team Providers Care Picking Machine Operator Name Role Phone Keyonna Armstrong Primary Care Provider [phone] Reason for Visit * Reason Onset Date Comments Orders 11/07/2023 Encounter Details Date Type Department Care Team (Late st Contact Info) Description 11/07/2023 Telephone [facility] Family & Internal Medicine [facility] [address] [place] [phone] Keyonna Armstrong APNP [address], [place] [phone] Orders Social History Tobacco Use Types Packs/Day [...] Gender Identity Female 07/17/2022 10:27 AM SENIOR SOFTWARE DEVELOPMENT ENGINEER Sexual Orientation Straight 07/17/2022 10 :27 AM SENIOR SOFTWARE DEVELOPMENT ENGINEER documented as of this encounter Progress Notes * Aguilar Garcia MA - 11/07/2023 1:56 PM CDT Ordered and faxed. Called pt's and LMOM letting him know. Paper orders at front desk team member also if pt wants to orange picker machine operator to take with her. * [...] for lab orders to be sent to [facility] [place] documented in this encounter Plan of Treatment Upcoming Encounters Date Type Department Care Team (Late st Contact Info) Description 07/25/2024 10:00 AM SENIOR SOFTWARE DEVELOPMENT ENGINEER Office Visit [facility] Family & Internal Medicine [address] [phone] Keyonna Armstrong APNP [address] [place] [address] 07/31/2024 10:15 AM SENIOR SOFTWARE DEVELOPMENT ENGINEER Office Visit [facility] [place] [address] [place], [place] [address] Pepe Mitchell MD Three [facility]. [place] [address] [place], [place] [address] Scheduled Orders Name Type Priority Associated Diagnoses [...] Depression Total Score: 22 020 3:46 PM SENIOR SOFTWARE DEVELOPMENT ENGINEER documented as of this encounter Care Teams Picking Machine Operator Relationship Specialty Start Date End Date Keyonna Armstrong APNP [address] [place] [address] PCP - General NURSE PRACTITIONER 05/06/18 documented as of this encounter
--- OUTSIDE RECORDS SUMMARY | 2024-07-11 00:09 | XMS_ITS | Encounter Summary ---
Author Organization [facility] Address [address] [place] [address]. [place], [place] [address] [place] [address] Care Team Providers Care Tar Pot Man Name Role Phone Keyonna Armstrong Primary Care Provider [phone] Reason for Referral * Consultation (Urgent) - Authorized Specialty Diagnoses / Procedures Referred By Contac t Referred To Contact CARDIOLOGY / Cardiology Diagnoses Sinus tachycardia Procedures OFFICE/OUTPATIENT NEW LOW MDM 30-44 MINUTES OFFICE/OUTPT VISIT,NEW,LEVL IV OFFICE/OUTPT VISIT,NEW,LEVL V OFFICE/OUTPT VISIT,EST,LEVL III OFFICE/OUTPT VISIT,EST,LEVL IV OFFICE/OUTPT VISIT,EST,LEVL V Keyonna Armstrong APNP [facility] [place] [place] [address] Phone: tel: fax: [address] [address] Phone: tel: fax: Referral ID Status Reason Start Date Expiration Date Visits Requested Visits Authorized [id number] Authorized Specialty Services 11/23/2023 12/22/2024 99 99 * Consultation/Treatment (Routine) - Authorized Specialty Diagnoses / Procedures Referred By Contac t Referred To Contact ENDOCRINOLOGY Diagnoses Adrenal adenoma, unspecified laterality Procedures OFFICE/OUTPATIENT NEW LOW MDM 30-44 MINUTES OFFICE/OUTPT VISIT,NEW,LEVL IV OFFICE/OUTPT VISIT,NEW,LEVL V OFFICE/OUTPT VISIT,EST,LEVL III OFFICE/OUTPT VISIT,EST,LEVL IV OFFICE/OUTPT VISIT,EST,LEVL V Keyonna Armstrong APNP [address] [place] [address] Phone: tel: fax: Carlene Crocker MD [address] [facility] [address] [place] [address] Phone: tel: fax: Referral ID Status Reason Start Date Expiration Date V isits Requested Visits Authorized [id number] Authorized 11/23/2023 12/23/2024 99 99 Reason for Visit * Reason Comments Hypertension Encounter Details Date Type Department Care Team (Late st Contact Info) Description 11/23/2023 9:20 AM CDT Office Visit [facility] Family & Internal Medicine [facility] [address] [place] [address] Keyonna Armstrong APNP [address] [place] [address] Hypertension Social History Tobacco Use Types Packs/Day [...] CDT Gender Identity Female 07/17/2022 10:27 AM PRESS MANAGER Sexual Orientation Straight 07/17/2022 10 :27 AM PRESS MANAGER documented as of this encounter Last [...] from the original note were not included. [facility] FAMILY AND INTERNAL MEDICINE OFFICE [...] 09/20/2017 Cholecystitis 06/11/2018 Depression 06/19/2012 Diabetes mellitus ([facility]) Esophageal reflux 04/22/2013 Hypertension 06/19/2012 Insomnia 04/02/2018 Menorrhagia 04/02/2018 Morbid obesity ([facility]) 09/23/2013 Obstructive sleep apnea 08/02/2012 Sinus tachycardia 09/20/2017 Surgical History: Past Surgical History: Procedure Laterality Date CHOLECYSTECTOMY COLONOSCOPY N/A 01/12/2020 COLONOSCOPY SCREENING performed by Burt Payne MD at [facility]IC BYPASS N/A 2004 Social History: [...] the day of the encounter. This includes [id number] and rsf-ehwu-[id number]-face time I provided on the day of [...] st Contact Info) Description 07/25/2024 10:00 AM PRESS MANAGER Office Visit [facility] Family & Internal Medicine - [place] [address] [place] [address] Keyonna Armstrong APNP [address] [place] [address] 07/31/2024 10:15 AM PRESS MANAGER Office Visit [facility], [facility] [address] [place], [place] [phone] Pepe Mitchell MD Three [facility]. [facility] [address] [place], [place] [phone] Scheduled Orders Name Type Priority Associated Diagnoses [...] (11/23/2023 12:15 PM CDT) TSH 0.46 mIU/L [facility] Comment: Our records indicate that you have ordered a client custom reflex order code. Only the initial test was performed because we do not have a client custom reflex testing authorization request form on file for you. Please contact a client development consultant if you would like additional testing done on this patient or contact your security system sales consultant to obtain a client custom reflex testing authorization request form. ?Reference Range ?> or = 20 Years ??0.40-4.50 ? Ranges ?First trimester ?0.26-2.66 ?Second trimester ?? 0.55-2.73 ?Third trimester ?0.43-2.91 11/23/2023 12:1 5 PM CDT 11/23/2023 12:20 PM CDT Narrative [facility] - [facility]DERS - 12/05/2023 2:55 PM CDT FASTING:YES FASTING: YES Resulting Agency Comment Performing Organization Information: ?Site ID: [id number] ?Name: [facility] ?Address: [address] [address] ?Director: Josiah Jones MD Keyonna [facility] Final Resul t [facility] - [facility] [address] [place] [address], * CATECHOLAMINES PLASMA (11/23/2023 12:15 PM CDT) EPINEPHRINE PLASMA CATECHOLAMINE 12 pg/mL [facility] Comment: Reference Range: SUPINE: <58 UPRIGHT: <82 NOREPINEPHRINE (U) 610 pg/mL [facility] Comment: Reference Range: SUPINE: 149-564 UPRIGHT: 199-937 DOPAMINE 16 pg/mL [facility] Comment: Reference Range: SUPINE: <16 UPRIGHT: <27 CATECHOLAMINE (PLASMA) 638 pg/mL [facility] Comment: Reference Range: SUPINE: <632 UPRIGHT: <1046 Due to stress, plasma catecholamine levels are generally unreliable in infants and small children. Urinary catecholamine assays are more reliable. This test was developed and its analytical performance characteristics have been determined by [facility]. It has not been cleared or approved by FDA. This assay has been validated pursuant to the CLIA regulations and is used for clinical purposes. 11/23/2023 12:1 5 PM CDT 11/23/2023 12:20 PM CDT Narrative [facility] - [facility] - 12/05/2023 2:55 PM CDT FASTING:YES FASTING: YES Resulting Agency Comment Performing Organization Information: ?Site ID: [id number] ?Name: [facility], ?Address: [address] [place] [phone] ?Director: Estefania Hawkins MD,PhD,EKATERINA Keyonna [facility] Final Resul t [facility] [address] [facility] [place] [address], [place] * (ABNORMAL) URINALYSIS COMPLETE W/RFX TO CULTURE (11/23/2023 12:15 PM CDT) COLOR (U) YELLOW YELLOW [place] APPEARANCE SEMEN CLEAR CLEAR [place] SPECIFIC GRAVITY (U) 1.005 1.001 - 1.035 [place] PH (U) 7.0 5.0 - 8.0 [place] URINE GLUCOSE NEGATIVE NEGATIVE [place] BILIRUBIN (U) NEGATIVE NEGATIVE [place] KETONE (U) NEGATIVE NEGATIVE [place] [place] BLOOD (U) NEGATIVE NEGATIVE [place] [place] PROTEIN (U) NEGATIVE NEGATIVE [place] NITRITES NEGATIVE NEGATIVE [place] LEUKOCYTES (U) NEGATIVE NEGATIVE [place] [place] WBC/HPF NONE SEEN < OR = 5 /HPF [place] RBC/HPF NONE SEEN < OR = 2 /HPF [place] [place] SQUAMOUS EPITHELIAL (U) 0-5 < OR = 5 /HPF [place] BACTERIA (U) FEW(A) NONE SEEN /HPF [place] [place] HYALINE CASTS NONE SEEN NONE SEEN /LPF [place] Note [facility] [place] Comment: This urine was analyzed for the presence of WBC, RBC, bacteria, casts, and other formed elements. Only those elements seen were reported. REFLEX URINE CULTURE: [place] [place] Comment:NO CULTURE INDICATED 11/23/2023 12:1 5 PM CDT 11/23/2023 12:20 PM CDT Narrative [facility] - [facility] ORDERS - 12/05/2023 2:55 PM CDT FASTING:YES FASTING: YES Resulting Agency Comment Performing Organization Information: ?Site ID: [id number] ?Name: [facility] ?Address: [facility] [place] [address] ?Director: Josiah Jones Keyonna Armstrong YOBANI URINE ORDERABLES Final Resu lt [facility] [place] [address] [place] [address], * (ABNORMAL) CBC W/DIFF AUTOMATED (11/23/2023 12:15 PM CDT) WBC 10.5 3.8 - 10.8 Thousand/u L [place] RBC 4.57 3.80 - 5.10 Million/uL [place] HGB 15.0 11.7 - 15.5 g/dL [place] HCT 46.0(H) 35.0 - 45.0 % [place] [place] MCV 100.7(H) 80.0 - 100.0 fL [place] MCH 32.8 27.0 - 33.0 pg [place] MCHC 32.6 32.0 - 36.0 g/dL [place] [place] RDW 13.2 11.0 - 15.0 % [place] [place] PLT 373 140 - 400 Thousand/u L [place] [place] MPV 9.3 7.5 - 12.5 fL [place] ABS. NEUTROPHILS 5,471 1,500 - 7,800 cells/uL [place] ABS. LYMPHOCYTES 4,032(H) 850 - 3,900 cells/uL [place] ABS. MONOCYTES 861 200 - 950 cells/uL [place] ABS. EOSINOPHILS 84 15 - 500 cells/uL [place] [place] ABS. BASOPHILS 53 0 - 200 cells/uL [place] [place] SEG NEUTROPHILS 52.1 % QUES [place] LYMPHOCYTES 38.4 % [place] MONOCYTES 8.2 % [place] EOSINOPHILS 0.8 % [place] BASOPHILS 0.5 % [place] 11/23/2023 12:1 5 PM CDT 11/23/2023 12:20 PM CDT Narrative [facility] - 12/05/2023 2:55 PM CDT FASTING:YES FASTING: YES Resulting Agency Comment Performing Organization Information: ?Site ID: [place] ?Name: [facility] ?Address: [address] [place] [address] ?Director: Josiah Jones Keyonna [facility] Final Resul t [facility] - [facility] [place] [id number] [place] [phone], * COMPREHENSIVE METABOLIC PANEL (11/23/2023 12:15 PM CDT) [facility] GLUCOSE 88 65 - 99 mg/dL [place] Comment: ? Fasting reference interval BUN 10 7 - 25 mg/dL [place] CREATININE S/P/B 0.62 0.50 - 1.03 mg/dL [place] GFR ESTIMATE 105 > OR = 60 mL/min/1. 73m2 [place] [place] BUN CREATININE RATIO SEE NOTE: (calc) [place] [place] Comment: ?? Not Reported: BUN and Creatinine are within ?? reference range. ? SODIUM S/P/B 140 135 - 146 mmol/L [place] [place] POTASSIUM S/P/B 3.7 3.5 - 5.3 mmol/L [place] [place] CHLORIDE S/P/B 102 98 - 110 mmol/L [place] [place] CO2 26 20 - 32 mmol/L [place] [place] CALCIUM S/P/B 9.7 8.6 - 10.4 mg/dL [place] [place] TOTAL PROTEIN S/P/B 7.2 6.1 - 8.1 g/dL [place] [place] ALBUMIN S/P/B 4.3 3.6 - 5.1 g/dL [facility] [place] GLOBULIN 2.9 1.9 - 3.7 g/dL (calc) [facility] ALBUMIN/GLOBULIN RATIO 1.5 1.0 - 2.5 (calc) [place] [place] BILIRUBIN TOTAL S/P/B 0.5 0.2 - 1.2 mg/dL [place] [place] ALKALINE PHOSPHATASE S/P/B 95 37 - 153 U/L [place] [place] AST 18 10 - 35 U/L [place] [place] ALT 20 6 - 29 U/L [place] 11/23/2023 12:1 5 PM CDT 11/23/2023 12:20 PM CDT Narrative [facility] - [facility] ORDERS - 12/05/2023 2:55 PM CDT FASTING:YES FASTING: YES Resulting Agency Comment Performing Organization Information: ?Site ID: ?Name: [facility] ?Address: [address] [place] [phone] ?Director: Josiah Jones us Keyonna [facility] Final Resul t [facility] - [facility] [address] [address], * (ABNORMAL) LIPID PANEL (11/23/2023 12:15 PM CDT) CHOLESTEROL 186 <200 mg/dL [place] [place] HDL 48(L) > OR = 50 mg/dL [place] [place] TRIGLYCERIDES 248(H) <150 mg/dL [place] Comment: If a non-fasting specimen was collected, consider repeat triglyceride testing on a fasting specimen if clinically indicated. Alexa et al. J. of Clin. Lipidol. 2015;9:129-169. LDL (CALCULATED) 103(H) mg/dL (calc) [place] [place] Comment: Reference range: <100 Desirable range <100 mg/dL for primary prevention; ?? <70 mg/dL for patients with CHD or diabetic patients with > or = 2 CHD risk factors. LDL-C is now calculated using the Carlos Enrique calculation, which is a validated novel method providing better accuracy than the Friedewald equation in the estimation of LDL-C. Deep GREER et al. JAMAR. 2013;310(19): 0498-0586 (http://education.[employer]/faq/XIT743) CHOL/HDL RATIO 3.9 <5.0 (calc) [facility] NON HDL CHOLESTEROL 138(H) <130 mg/dL (calc) [facility] [place] Comment: For patients with diabetes plus 1 major ASCVD risk factor, treating to a non-HDL-C goal of <100 mg/dL (LDL-C of <70 mg/dL) is considered a therapeutic option. 11/23/2023 12:1 5 PM CDT 11/23/2023 12:20 PM CDT Narrative [facility] - [facility] ORDERS - 12/05/2023 2:55 PM CDT FASTING:YES FASTING: YES Resulting Agency Comment Performing Organization Information: ?Site ID: [place] ?Name: [facility] ?Address: [address] [place] [phone] ?Director: Josiah Jones Keyonna [facility] Final Resul t [facility] - [facility] ORDERS [facility] [address] * METANEPHRINES FRACTIONATED PLASMA (11/23/2023 12:15 PM CDT) [facility] METANEPHRINE FREE S/P/B <25 <=57 pg/mL [facility] TANVIR [facility]H Comment: This test was developed and its analytical performance characteristics have been determined by [place]. It has not been cleared or approved by the U.S. Food and Drug Administration. This assay has been validated pursuant to the CLIA regulations and is used for clinical purposes. ? NORMETANEPHRINE FREE S/P/B 73 <=148 pg/mL [facility] Comment: This test was developed and its analytical performance characteristics have been determined by [facility] [place], [place]. It has not been cleared or approved by the U.S. Food and Drug Administration. This assay has been validated pursuant to the CLIA regulations and is used for clinical purposes. ? METANEPHRINES (U) 73 <=205 pg/mL [facility] Comment: For additional information, please refer to http://education.Punchd/faq/MetFractFree (This link is being provided for informational/educatio [...] analytical performance characteristics have been determined by [facility] [place], [place]. It has not been cleared or approved by the U.S. Food and Drug Administration. This assay has been validated pursuant to the CLIA regulations and is used for clinical purposes. ? 11/23/2023 12:1 5 PM CDT 11/23/2023 12:20 PM CDT Narrative [facility] - [facility]EFRI ORDERS - 12/05/2023 2:55 PM CDT FASTING:YES FASTING: YES Resulting Agency Comment Performing Organization Information: ?Site ID: [id number] ?Name: [facility] ?Address: [address] [place] [address] [place] ?Director: Oscar Ulloa M.D.,PhD Keyonna H Patti APNP LABORATORY Final Resul t [facility] - [facility] [address] [place] [address], * BOSSMAN LARA ACQUIRED (11/23/2023 10:07 AM CDT) 11/23/2023 10:0 7 AM CDT Narrative [facility] RAD - 11/23/2023 12:13 PM CDT ?[facility] Medical [facility] ?[address] [place] [address] ? Test Date: ?2023-11-23 Pat Name: ? VERONICA EVANGELISTA ?Department: ?? 171 ? Room: ? Gender: ? Female ? Air Support Control Officer: ?? : ?1970 ? Requested By: KEVIN PAREDES Order Number: [id number] ?Reading : ?? Kevin Paredes ? Measurements Intervals ?[place] ? Rate: ? 125 ?P: ?38 MA: ? 149 ?QRS: ?31 QRSD: ? 89 ? T: ?16 QT: ? 336 ? QTc: ?485 ? Interpretive Statements SINUS TACHYCARDIA WITH OCCASIONAL SUPRAVENTRICULAR PREMATURE COMPLEXES ABNORMAL RHYTHM ECG Kevin Paredes DO Procedure Note Kevin Paredes DO - 11/23/2023 [facility] [address] [place] [address] [place] [address] Test Date: 2023-11-23 Pat Name: VERONICA EVANGELISTA Department: 171 Room: Gender: Female Air Support Control Officer: : 1970 Requested By: KEVIN PAREDES Order Number: [id number] Yessica MD: Kevin Paredes Measurements Intervals [place] Rate: 125 P: 38 MA: 149 QRS: 31 QRSD: 89 T: 16 QT: 336 QTc: 485 Interpretive Statements SINUS TACHYCARDIA WITH OCCASIONAL SUPRAVENTRICULAR PREMATURE COMPLEXES ABNORMAL RHYTHM ECG Kevin Paredes DO Kevin Paredes DO PROCEDURES-ORDERABLE NO CHARGE Final Result [facility] documented in this encounter Visit Diagnoses Diagnosis Primary hypertension- Primary Unspecified essential hypertension Sinus tachycardia Other specified cardiac dysrhythmias Adrenal adenoma, unspecified laterality documented in this encounter Additional Health Concerns Assessment Noted Time PHQ-9 Depression Total Score: 22 07/29/ 020 3:46 PM PRESS MANAGER documented as of this encounter Care Teams Tar Pot Man Relationship Specialty Start Date End Date Keyonna Armstrong APNP [address] [place] [address] PCP - General NURSE PRACTITIONER 05/06/18 documented as of this encounter
--- OUTSIDE RECORDS SUMMARY | 2024-07-11 00:09 | XMS_ITS | Encounter Summary ---
Author Organization [facility] Address [address] [place] [address]. [place], [place] [address] [place] [address] Care Team Providers Care Diagnostic Assistant Name Role Phone Keyonna Armstrong Primary Care Provider [phone] Reason for Visit * Reason Onset Date Comments Consult 12/11/2023 Encounter Details Date Type Department Care Team (Late st Contact Info) Description 12/11/2023 [place] [address] Susi Parikh, RMA Consult Social History Tobacco [...] CDT Gender Identity Female 07/17/2022 10:27 AM [facility]IVING Sexual Orientation Straight 07/17/2022 10 :27 AM [facility]IV[facility] documented as of this encounter Progress Notes * TINO Knowles - 12/11/2023 4:34 PM CDT Returned call and left message with Joanne/dtr-in-law to schedule consult per H NEVAEH Armstrong documented in this encounter Plan of Treatment Upcoming Encounters Date Type Department Care Team (Late st Contact Info) Description 07/25/2024 10:00 AM PCA ASSISTED LIVING Office Visit [facility] Family & Internal Medicine - [place] [address] [place] [address] Keyonna Armstrong APNP [address] [place] [address] 07/31/2024 10:15 AM [facility]ED [facility]IVING Office Visit [facility], [facility] [address] [place] [address] Pepe Mitchell MD Three [facility]. [place] [address] [place] [address] documented as of this encounter Visit Diagnoses Not on filedocumented in this encounter Additional Health Concerns Assessment Noted Time PHQ-9 Depression Total Score: 22 07/29/ 020 3:46 PM [facility]IV[facility] documented as of this encounter Care Teams Diagnostic Assistant Relationship Specialty Start Date End Date Keyonna Armstrong APNP [address] [place] [address] PCP - General NURSE PRACTITIONER 05/06/18 documented as of this encounter
--- OUTSIDE RECORDS SUMMARY | 2024-07-11 00:09 | XMS_ITS | Encounter Summary ---
Author Organization [facility] Address [address] [place] [address]. [place], [place] [address] [place] [address] Care Team Providers Care Foreign Language Interpreter Name Role Phone Keyonna Armstrong Primary Care Provider [phone] Encounter Details Date Type Department Care Team [...] CDT Gender Identity Female 07/17/2022 10:27 AM NOODLE CATALYST MAKER Sexual Orientation Straight 07/17/2022 10 :27 AM NOODLE CATALYST MAKER documented as of this encounter Plan of Treatment Upcoming Encounters Date Type Department Care Team ( Contact Info) Description 07/25/2024 10:00 AM NOODLE CATALYST MAKER Office Visit [facility] Family & Internal Medicine [address] [address] Keyonna Armstrong APNP [address] [place] [address] 07/31/2024 10:15 AM NOODLE CATALYST MAKER Office Visit [facility] THREE [facility], [facility] [address] [place], [place] [address] Pepe Mitchell MD Three [facility]. [facility] [address] [place] [address] documented as of this encounter Visit Diagnoses Not on filedocumented in this encounter Additional Health Concerns Assessment Noted Time PHQ-9 Depression Total Score: 22 020 3:46 PM NOODLE CATALYST MAKER documented as of this encounter Care Teams Foreign Language Interpreter Relationship Specialty Start Date End Date Keyonna Armstrong APNP [address] [place] [address] PCP - General NURSE PRACTITIONER 05/06/18 documented as of this encounter
--- OUTSIDE RECORDS SUMMARY | 2024-07-11 00:09 | XMS_ITS | Encounter Summary ---
Author Organization [facility] Address [address] [place] [address]. [place] [address] Care Team Providers Care Well Digger Name Role Phone Aracely Armstrong Primary Care Provider [phone] Reason for Referral * Sleep Lab (Routine) - Closed Specialty Diagnoses / Procedures Referred By Lee saunders Referred To Contact Diagnoses Obstructive sleep apnea Other fatigue Anxiety Primary insomnia Procedures Home Sleep Study - WatchPat ([id number]) Aracely Armstrong APNP [address] [id number] Phone: tel: fax: Referral ID Status Reason Start Date Expiration Date Visits Re quested Visits Authorized [id number] Closed 10/04/2023 10/03/2024 1 1 Reason for Visit * Reason Comments Obstructive Sleep Apnea Fatigue Insomnia With Sleep Apnea Anxiety * Sleep Lab (Routine) - Closed Specialty Diagnoses / Procedures Referred By Lee saunders Referred To Contact Diagnoses Obstructive sleep apnea Other fatigue Anxiety Primary insomnia Procedures Home Sleep Study - WatchPat ([id number]) Aracely Armstrong APNP [address] [place] [address] Phone: tel: fax: Referral ID Status Reason Start Date Expiration Date Visits Re quested Visits Authorized [id number] Closed 10/04/2023 10/03/2024 1 1 Encounter Details Date Type Department Care Team (Latest Contact Info) Description 01/04/2024 11:30 AM CDT - 01/04/2024 11:59 PM CDT Hospital Encounter [facility] Sleep Lab [address] [place] [address] Aracely Armstrong APNP [address] [place] [address] Obstructive Sleep Apnea ; Fatigue; Insomnia With [...] CDT Gender Identity Female 07/17/2022 10:27 AM PROJECT ENGINEERING DIRECTOR Sexual Orientation Straight 07/17/2022 10 :27 AM PROJECT ENGINEERING DIRECTOR documented as of this encounter Discharge Instructions [...] First Name: VERONICA Last Name: TONJA ID: [id number] Date: 1970 Age: 53 Gender: Female BMI: [...] Tachycardia was noted during this study. RECOMMENDATIONS [place] treatment option should be discussed with the [...] snoring and other sleep-related issues, such as REEL STRIPPER depressants, especially at bedtime. Raw data reviewed and electronically signed by: Deondre Wheat on 01/09/2024 2:01:02 PM at 7:01:06PM, [facility] * Deondre Wheat MD - 01/04/2024 11:30 AM CDT Patient Information First Name: VERONICA Last Name: TONJA ID: [id number] Date: 1970 Age: 53 Gender: Female BMI: [...] Tachycardia was noted during this study. RECOMMENDATIONS [place] treatment option should be discussed with the [...] snoring and other sleep-related issues, such as REEL STRIPPER depressants, especially at bedtime. Raw data reviewed and electronically signed by: Deondre Wheat on 01/09/2024 2:01:02 PM at 7:01:06PM, [facility] documented in this encounter Plan of Treatment Upcoming Encounters Date Type Department Care Team (Late st Contact Info) Description 07/25/2024 10:00 AM PROJECT ENGINEERING DIRECTOR Office Visit [facility] Medical Group Family & Internal Medicine - [place] [address] [place] [address] Ilya Aracely HYOBANI [address] [place] [address] 07/31/2024 10:15 AM PROJECT ENGINEERING DIRECTOR Office Visit Aaliyah Alexander-O'Fallo n THREE [facility], [place] [address] [place] [address] Pepe Mitchell MD Three [facility]. [place] [address] [place], [place] [id number] documented as of this encounter Procedures Procedure Name Priority Date/Time Associated Diagnosis Comments HOME SLEEP STUDY - WATCHPAT Routine 01/04/2024 11:30 AM CDT Obstructive sleep apnea Other fatigue Anxiety Primary insomnia documented in this encounter Results * Home Sleep Study - WatchPat ([id number]) (01/04/2024 11:30 AM CDT) Narrative [facility] - 01/04/2024 11:30 AM CDT Deondre Wheat MD ? 01/09/2024 ??2:02 PM Patient Information First Name: VERONICA Last Name: TONJA ID: [id number] Date: 1970 Age: 53 Gender: Female BMI: [...] Tachycardia was noted during this study. RECOMMENDATIONS [place] treatment option should be discussed with the [...] snoring and other sleep-related issues, such as REEL STRIPPER depressants, especially at bedtime. Raw data reviewed and electronically signed by: Deondre Wheat ??on 01/09/2024 2:01:02 PM at ??7:01:06PM, [facility] Aracely [facility] ORDERABLES Fin al Result Performing Organization Address City/State/[facility] Co de Phone Number [facility] [address] [place] [address], documented in this encounter Visit Diagnoses Diagnosis Obstructive sleep apnea Obstructive sleep apnea (adult) (pediatric) Other fatigue Anxiety Anxiety state, unspecified Primary insomnia Persistent disorder of initiating or maintaining sleep documented in this encounter Additional Health Concerns Assessment Noted Time PHQ-9 Depression Total Score: 22 020 3:46 PM PROJECT ENGINEERING DIRECTOR documented as of this encounter Care Teams Well Digger Relationship Specialty Start Date End Date Aracely Armstrong APNP [address] [place] [address] PCP - General NURSE PRACTITIONER 05/06/18 documented as of this encounter
--- OUTSIDE RECORDS SUMMARY | 2024-07-11 00:09 | XMS_ITS | Encounter Summary ---
Author Organization [facility] Address [address] [place] [address]. [place], [place] [address] [place] [address] Care Team Providers Care Ibm Websphere Portal Developer Name Role Phone Keyonna Armstrong Primary Care Provider [phone] Reason for Visit * Reason Onset Date Comments Consult 11/27/2023 Encounter Details Date Type Department Care Team (Late st Contact Info) Description 11/27/2023 [place] [address] Susi Parikh, RMA Consult Social History Tobacco [...] CDT Gender Identity Female 07/17/2022 10:27 AM ENGINEERING LABORATORY TECHNICIAN Sexual Orientation Straight 07/17/2022 10 :27 AM ENGINEERING LABORATORY TECHNICIAN documented as of this encounter Progress Notes * TINO Knowles - 11/27/2023 1:44 PM CDT Left message to schedule cardiology consult per Keyonna Armstrong NP documented in this encounter Plan of Treatment Upcoming Encounters Date Type Department Care Team (Late st Contact Info) Description 07/25/2024 10:00 AM ENGINEERING LABORATORY TECHNICIAN Office Visit [facility] Medical Group Family & Internal Medicine - [place] [address] [place] [address] Keyonna Armstrong APNP [address] [place] [address] 07/31/2024 10:15 AM ENGINEERING LABORATORY TECHNICIAN Office Visit [facility] THREE [facility], [facility] [address] [place] [address] Pepe Mitchell MD Three [facility]. [facility] [address] [place] [address] documented as of this encounter Visit Diagnoses Not on filedocumented in this encounter Additional Health Concerns Assessment Noted Time PHQ-9 Depression Total Score: 22 020 3:46 PM ENGINEERING LABORATORY TECHNICIAN documented as of this encounter Care Teams Ibm Websphere Portal Developer Relationship Specialty Start Date End Date Keyonna Armstrong APNP [facility] [place] [address] PCP - General NURSE PRACTITIONER 05/06/18 documented as of this encounter
--- OUTSIDE RECORDS SUMMARY | 2024-07-11 00:09 | XMS_ITS | Encounter Summary ---
Author Organization [facility] Address [address] [place] [address]. [place], [place] [address] [place] [address] Care Team Providers Care Stogy Maker Name Role Phone Keyonna Armstrong Primary Care Provider [phone] Encounter Details Date Type Department Care Team [...] CDT Gender Identity Female 07/17/2022 10:27 AM WAFER FAB OPERATOR Sexual Orientation Straight 07/17/2022 10 :27 AM WAFER FAB OPERATOR documented as of this encounter Plan of Treatment Upcoming Encounters Date Type Department Care Team ( Contact Info) Description 07/25/2024 10:00 AM WAFER FAB OPERATOR Office Visit [facility] Medical Group Family & Internal Medicine [address] [address] Keyonna Armstrong APNP [address] [place] [address] 07/31/2024 10:15 AM WAFER FAB OPERATOR Office Visit [facility]ah [facility] THREE [facility], [facility] [address] [place], [place] [address] Pepe Mitchell MD Three [facility]. [facility] [address] [place] [address] documented as of this encounter Visit Diagnoses Not on filedocumented in this encounter Additional Health Concerns Assessment Noted Time PHQ-9 Depression Total Score: 22 020 3:46 PM WAFER FAB OPERATOR documented as of this encounter Care Teams Stogy Maker Relationship Specialty Start Date End Date Keyonna Armstrong APNP [address] [place] [address] PCP - General NURSE PRACTITIONER 05/06/18 documented as of this encounter
--- OUTSIDE RECORDS SUMMARY | 2024-07-11 00:09 | XMS_ITS | Encounter Summary ---
Author Organization [facility] Address [address] [place] [address]. [place], [place] [address] [place] [address] Care Team Providers Care Mental Retardation Aide Name Role Phone Keyonna Armstrong Primary Care Provider [phone] Encounter Details Date Type Department Care Team [...] CDT Gender Identity Female 07/17/2022 10:27 AM BED MACHINE OPERATOR Sexual Orientation Straight 07/17/2022 10 :27 AM BED MACHINE OPERATOR documented as of this encounter Plan of Treatment Upcoming Encounters Date Type Department Care Team (Late st Contact Info) Description 07/25/2024 10:00 AM BED MACHINE OPERATOR Office Visit [facility] Medical Group Family & Internal Medicine [address] [address] Keyonna Armstrong APNP [address] [place] [address] 07/31/2024 10:15 AM BED MACHINE OPERATOR Office Visit [facility] THREE [facility], [facility] [address] [place], [place] [address] Pepe Mitchell MD Three [facility]. [facility] [address] [place], [place] [phone] documented as of this encounter Visit Diagnoses Not on filedocumented in this encounter Additional Health Concerns Assessment Noted Time PHQ-9 Depression Total Score: 22 020 3:46 PM BED MACHINE OPERATOR documented as of this encounter Care Teams Mental Retardation Aide Relationship Specialty Start Date End Date Keyonna Armstrong APNP [address] [place] [address] PCP - General NURSE PRACTITIONER 05/06/18 documented as of this encounter
--- OUTSIDE RECORDS SUMMARY | 2024-07-11 00:09 | XMS_ITS | Encounter Summary ---
Author Organization [facility] Address [address] [place] [address]. [place], [place] [address] [place] [address] Care Team Providers Care Filing Clerk Name Role Phone Keyonna Armstrong Primary Care Provider [phone] Reason for Visit * Reason Onset Date Comments Consult 12/18/2023 Encounter Details Date Type Department Care Team (Late st Contact Info) Description 12/18/2023 [place] [address] Susi Parikh, RMA Consult Social History Tobacco [...] CDT Gender Identity Female 07/17/2022 10:27 AM CLASSIFIED ADVERTISING MANAGER Sexual Orientation Straight 07/17/2022 10 :27 AM CLASSIFIED ADVERTISING MANAGER documented as of this encounter Progress [...] st Contact Info) Description 07/25/2024 10:00 AM CLASSIFIED ADVERTISING MANAGER Office Visit [facility] Medical Group Family & Internal Medicine - [place] [address] [place] [address] Keyonna Armstrong APNP [address] [place] [address] 07/31/2024 10:15 AM CLASSIFIED ADVERTISING MANAGER Office Visit [facility] THREE [facility], [facility] [address] [place] [address] Pepe Mitchell MD Three [facility]. [facility] [address] [place] [address] documented as of this encounter Visit Diagnoses Not on filedocumented in this encounter Additional Health Concerns Assessment Noted Time PHQ-9 Depression Total Score: 22 020 3:46 PM CLASSIFIED ADVERTISING MANAGER documented as of this encounter Care Teams Filing Clerk Relationship Specialty Start Date End Date Keyonna Armstrong APNP [address] [place] [address] PCP - General NURSE PRACTITIONER 05/06/18 documented as of this encounter
--- OUTSIDE RECORDS SUMMARY | 2024-07-11 00:09 | XMS_ITS | Encounter Summary ---
Author Organization [facility] Address [address] [place] [address]. [place] [id number] [place], [place] [address] Care Team Providers Care Crm System Administrator Name Role Phone Keyonna Armstrong Primary Care Provider [phone] Reason for Visit * Reason Onset Date Comments Refill Request 04/24/2024 Question 04/24/2024 Encounter Details Date Type Department Care Team (Late st Contact Info) Description 04/24/2024 Telephone [facility] Medical Group Family & Internal Medicine [facility] [address] [place] [address] Keyonna Armstrong APNP [address] [place] [address] Refill Request; Question Social History [...] CDT Gender Identity Female 07/17/2022 10:27 AM SHEET METAL WORKER APPRENTICE Sexual Orientation Straight 07/17/2022 10 :27 AM SHEET METAL WORKER APPRENTICE documented as of this encounter Progress Notes * Claritza Velázquez MA - 04/29/2024 11:21 AM CDT Order faxed to [facility] today, along with OV notes and sleep [...] mg,ibuprofen 800 mg. Gabapentin 100 mg, Pharmacy [facility] [address] [place], [place]. documented in this encounter Plan of Treatment Upcoming Encounters Date Type Department Care Team (Late st Contact Info) Description 07/25/2024 10:00 AM SHEET METAL WORKER APPRENTICE Office Visit [facility] Medical Group Family & Internal Medicine - [place] [address] [place] [address] Keyonna Armstrong APNP [address] [place] [address] 07/31/2024 10:15 AM SHEET METAL WORKER APPRENTICE Office Visit [facility]aliyah [facility] THREE [facility], [facility] [address] [place] [address] Pepe Mitchell MD Three [facility]. [facility] [address] [place] [address] documented as of this encounter Visit Diagnoses Diagnosis Right ovarian cyst Other and unspecified ovarian cyst Gastroesophageal reflux disease without esophagitis Esophageal reflux documented in this encounter Additional Health Concerns Assessment Noted Time PHQ-9 Depression Total Score: 22 020 3:46 PM SHEET METAL WORKER APPRENTICE documented as of this encounter Care Teams Crm System Administrator Relationship Specialty Start Date End Date Keyonna Armstrong APNP [address] [place] [address] PCP - General NURSE PRACTITIONER 05/06/18 documented as of this encounter
--- OUTSIDE RECORDS SUMMARY | 2024-07-11 00:09 | XMS_ITS | Encounter Summary ---
Author Organization [facility] Address [address] [place] [address]. [place] [id number] [place] [address] Care Team Providers Care Machine Straw Hat Presser Name Role Phone Keyonna Armstrong Primary Care Provider [phone] Reason for Visit * Reason Onset Date Comments Results 01/15/2024 Encounter Details Date Type Department Care Team (Late st Contact Info) Description 01/15/2024 Telephone [facility] Medical Group Family & Internal Medicine [facility] [address] [place] [address] Keyonna Armstrong APNP [address] [place] [address] Results Social History Tobacco Use [...] CDT Gender Identity Female 07/17/2022 10:27 AM OPERATIONAL TRAINER Sexual Orientation Straight 07/17/2022 10 :27 AM OPERATIONAL TRAINER documented as of this encounter Progress Notes * Flora Blackwell MA - 01/15/2024 2:09 PM CDT Patient made a follow in in a 40 min slot. Requesting pending medications to be sent to [facility]. Ok to fill? * Flora Blackwell MA - 01/15/2024 2:06 PM CDT ----- Message from Keyonna Armstrong sent at 01/15/2024 10:42 AM CDT ----- Have pt to follow up to discuss results Please make a 40 documented in this encounter Plan of Treatment Upcoming Encounters Date Type Department Care Team (Late st Contact Info) Description 07/25/2024 10:00 AM OPERATIONAL TRAINER Office Visit [facility] Medical Group Family & Internal Medicine - [place] [address] [place] [address] Keyonna Armstrong APNP [facility] [place] [address] 07/31/2024 10:15 AM OPERATIONAL TRAINER Office Visit [facility] THREE [facility], [facility] [address] [place], [place] [address] Pepe Mitchell MD [facility]. [facility] [address] [place], [place] [address] documented as of this encounter Visit Diagnoses Diagnosis Essential hypertension Unspecified essential hypertension Pulled muscle Unspecified site of sprain and strain documented in this encounter Additional Health Concerns Assessment Noted Time PHQ-9 Depression Total Score: 22 020 3:46 PM OPERATIONAL TRAINER documented as of this encounter Care Teams Machine Straw Hat Presser Relationship Specialty Start Date End Date Keyonna Armstrong APNP [facility] [place] [address] PCP - General NURSE PRACTITIONER 05/06/18 documented as of this encounter
--- OUTSIDE RECORDS SUMMARY | 2024-07-11 00:09 | XMS_ITS | Encounter Summary ---
Author Organization [facility] Address [address] [place] [address]. [place], [place] [address] [place] [address] Care Team Providers Care Baggage Security Checker Name Role Phone Keyonna Armstrong Primary Care Provider [phone] Encounter Details Date Type Department Care Team [...] CDT Gender Identity Female 07/17/2022 10:27 AM DUST CONTROL ENGINEER Sexual Orientation Straight 07/17/2022 10 :27 AM DUST CONTROL ENGINEER documented as of this encounter Plan of Treatment Upcoming Encounters Date Type Department Care Team (Late st Contact Info) Description 07/25/2024 10:00 AM DUST CONTROL ENGINEER Office Visit [facility] Medical Group Family & Internal Medicine [address] [address] Keyonna Armstrong APNP [address] [place] [address] 07/31/2024 10:15 AM DUST CONTROL ENGINEER Office Visit [facility] THREE [facility], [facility] [address] [place], [place] [address] Pepe Mitchell MD Three [facility]. [facility] [address] [place], [place] [address] documented as of this encounter Visit Diagnoses Not on filedocumented in this encounter Additional Health Concerns Assessment Noted Time PHQ-9 Depression Total Score: 22 020 3:46 PM DUST CONTROL ENGINEER documented as of this encounter Care Teams Baggage Security Checker Relationship Specialty Start Date End Date Keyonna Armstrong APNP [address] [place] [address] PCP - General NURSE PRACTITIONER 05/06/18 documented as of this encounter
--- OUTSIDE RECORDS SUMMARY | 2024-07-11 00:09 | XMS_ITS | Encounter Summary ---
Author Organization [facility] Address [address] [place] [address]. [place] [id number] [place] [address] Care Team Providers Care Graduate Teaching Assistant Name Role Phone Keyonna Armstrong Primary Care Provider [phone] Reason for Visit * Reason Onset Date Comments Lab Results 12/25/2023 Encounter Details Date Type Department Care Team (Late st Contact Info) Description 12/25/2023 Telephone [facility] Medical Group Family & Internal Medicine [facility] [address] [place] [address] Keyonna Armstrong APNP [address] [place] [address] Lab Results Social History Tobacco [...] CDT Gender Identity Female 07/17/2022 10:27 AM CREAM SEPARATOR OPERATOR Sexual Orientation Straight 07/17/2022 10 :27 AM CREAM SEPARATOR OPERATOR documented as of this encounter Progress [...] st Contact Info) Description 07/25/2024 10:00 AM CREAM SEPARATOR OPERATOR Office Visit [facility] Medical Group Family & Internal Medicine [address] [address] Keyonna Armstrong APNP [address] [place] [address] 07/31/2024 10:15 AM CREAM SEPARATOR OPERATOR Office Visit [facility] THREE [facility], [facility] [address] [place] [phone] Pepe Mitchell MD Three [facility]. [facility] [address] [place] [address] documented as of this encounter Visit Diagnoses Not on filedocumented in this encounter Additional Health Concerns Assessment Noted Time PHQ-9 Depression Total Score: 22 020 3:46 PM CREAM SEPARATOR OPERATOR documented as of this encounter Care Teams Graduate Teaching Assistant Relationship Specialty Start Date End Date Keyonna Armstrong APNP [address] [place] [address] PCP - General NURSE PRACTITIONER 05/06/18 documented as of this encounter
--- OUTSIDE RECORDS SUMMARY | 2024-07-11 00:09 | XMS_ITS | Clinical Summary ---
Author Organization [facility] Address [address] [place] [address]. [place] [address] [place] [address] Care Team Providers Care Associate Professor Of Violin Name Role Phone Keyonna Armstrong Primary Care Provider [phone] Allergies Active Allergy Reactions Criticality Noted Date [...] Date Diagnosed Date Resolved Date Abnormal platelets ([facility]) 03/04/2020 12/20/2021 BMI 50.0-59.9, adult ([facility]) 06/11/2018 09/03/2018 Class 3 severe obesity with serious comorbidity in adult ([facility]) 09/23/2013 0 12/20/2021 Encounters Date Type Department Care Team Description 05/21/2024 Scan [facility] Scanned, Doc [facility] 04/29/2024 Scan [facility] Scanned, Doc Med Group 04/24/2024 Telephone [facility] Medical Group Family & Internal Medicine [address] [address] Keyonna Armstrong APNP Refill Request; [...] CDT Gender Identity Female 07/17/2022 10:27 AM DEPUTY SHERIFF CHIEF Sexual Orientation Straight 07/17/2022 10 :27 AM DEPUTY SHERIFF CHIEF Last Filed Vital Signs Vital Sign Reading [...] st Contact Info) Description 07/25/2024 10:00 AM DEPUTY SHERIFF CHIEF Office Visit [facility] Medical Group Family & Internal Medicine [place] [address] [place] [address] Keyonna Armstrong APNP [address] [place] [address] 07/31/2024 10:15 AM DEPUTY SHERIFF CHIEF Office Visit [facility] THREE [facility], [facility] [address] [place] [address] Pepe Mitchell MD [facility]. [facility] [address] [place], [place] [address] Health Maintenance Due Date Last Done Comments [...] 12:15 PM CDT) CHOLESTEROL 186 <200 mg/dL [place] HDL 48(L) > OR = 50 mg/dL [place] TRIGLYCERIDES 248(H) <150 mg/dL [place] Comment: If a non-fasting specimen was collected, consider repeat triglyceride testing on a fasting specimen if clinically indicated. Alexa et al. J. of Clin. Lipidol. 2015;9:129-169. LDL (CALCULATED) 103(H) mg/dL (calc) [place] Comment: Reference range: <100 Desirable range <100 mg/dL for primary prevention; ?? <70 mg/dL for patients with CHD or diabetic patients with > or = 2 CHD risk factors. LDL-C is now calculated using the Carlos Enrique calculation, which is a validated novel method providing better accuracy than the Friedewald equation in the estimation of LDL-C. Deep GREER et al. JAMAR. 2013;310(19): 9946-3761 (http://education.[employer]/faq/DAU975) CHOL/HDL RATIO 3.9 <5.0 (calc) [place] NON HDL CHOLESTEROL 138(H) <130 mg/dL (calc) [place] Comment: For patients with diabetes plus 1 major ASCVD risk factor, treating to a non-HDL-C goal of <100 mg/dL (LDL-C of <70 mg/dL) is considered a therapeutic option. 11/23/2023 12:1 5 PM CDT 11/23/2023 12:20 PM CDT Narrative [facility] card.io - YEFRI ORDERS - 12/05/2023 2:55 PM CDT FASTING:YES FASTING: YES Resulting Agency Comment Performing Organization Information: ?Site ID: [id number] ?Name: [facility] ?Address: [address] [address] ?Director: Josiah Jones Keyonna [facility] Final Resul t Leostream - YEFRI ORDERS [facility] [address], [place] * A1C (BACK OFFICE) (03/22/2023) HGB A1C 5.7 % [facility] 03/22/2023 us Keyonna [facility] Final Resul t [facility] [address] [place] [address], [place] * MAMMOGRAM GENERIC (08/09/2020) Anatomical Region Laterality Modality Other 08/09/2020 Narrative 08/09/2020 Ordered by an unspecified provider. us Documents Scanned SCANNING Final Result * COLONOSCOPY (01/12/2020) us Documents Scanned SCANNING Final Result Performing Organization Address City/State/[facility] Co de Phone Number [facility] ONBASE from Last 3 Months or Most Recently Relevant to Health Maintenance Insurance [facility] Care Teams Associate Professor Of Violin Relationship Specialty Start Date End Date Keyonna Armstrong APNP [address] [place] [address] PCP - General NURSE PRACTITIONER 05/06/18
--- OUTSIDE RECORDS SUMMARY | 2024-07-11 00:09 | XMS_ITS | Encounter Summary ---
Author Organization [facility] Address [address] [place] [address]. [place], [place] [address] [place] [address] Care Team Providers Care Bat Carrier Name Role Phone Keyonna Armstrong Primary Care Provider [phone] Encounter Details Date Type Department Care Team [...] CDT Gender Identity Female 07/17/2022 10:27 AM YARN COMBER Sexual Orientation Straight 07/17/2022 10 :27 AM YARN COMBER documented as of this encounter Plan of Treatment Upcoming Encounters Date Type Department Care Team (Late st Contact Info) Description 07/25/2024 10:00 AM YARN COMBER Office Visit [facility] Medical Group Family & Internal Medicine [address] [address] Keyonna Armstrong APNP [address] [place] [address] 07/31/2024 10:15 AM YARN COMBER Office Visit [facility] THREE [facility], [facility] [address] [place], [place] [address] Pepe Mitchell MD Three [facility]. [place] [address] [place], [place] [address] documented as of this encounter Visit Diagnoses Not on filedocumented in this encounter Additional Health Concerns Assessment Noted Time PHQ-9 Depression Total Score: 22 020 3:46 PM YARN COMBER documented as of this encounter Care Teams Bat Carrier Relationship Specialty Start Date End Date Keyonna Armstrong APNP [address] [place] [address] PCP - General NURSE PRACTITIONER 05/06/18 documented as of this encounter
--- OUTSIDE RECORDS SUMMARY | 2024-07-11 00:09 | XMS_ITS | Encounter Summary ---
Author Organization [facility] Address [address] [place] [address]. [place], [place] [address] [place] [address] Care Team Providers Care Stock Turner Name Role Phone Keyonna Armstrong Primary Care Provider [phone] Encounter Details Date Type Department Care Team [...] CDT Gender Identity Female 07/17/2022 10:27 AM CATHODE BUILDER Sexual Orientation Straight 07/17/2022 10 :27 AM CATHODE BUILDER documented as of this encounter Plan of Treatment Upcoming Encounters Date Type Department Care Team ( Contact Info) Description 07/25/2024 10:00 AM CATHODE BUILDER Office Visit [facility] Medical Group Family & Internal Medicine [address] [address] Keyonna Armstrong APNP [address] [place] [address] 07/31/2024 10:15 AM CATHODE BUILDER Office Visit [facility] THREE [facility], [facility] [address] [place], [place] [address] Pepe Mitchell MD Three [facility]. [facility] [address] [place] [address] documented as of this encounter Visit Diagnoses Not on filedocumented in this encounter Additional Health Concerns Assessment Noted Time PHQ-9 Depression Total Score: 22 020 3:46 PM CATHODE BUILDER documented as of this encounter Care Teams Stock Turner Relationship Specialty Start Date End Date Keyonna Armstrong APNP [address] [place] [address] PCP - General NURSE PRACTITIONER 05/06/18 documented as of this encounter
--- OUTSIDE RECORDS SUMMARY | 2024-07-11 00:09 | XMS_ITS | Encounter Summary ---
Author Organization [facility] Address [address] [place] [address]. [place], [place] [address] [place] [address] Care Team Providers Care Pilot Can Router Name Role Phone Keyonna Armstrong Primary Care Provider [phone] Reason for Referral * Consultation (Routine) - Authorized Specialty Diagnoses / Procedures Referred By Contac t Referred To Contact CARDIOLOGY / Cardiology Diagnoses Sinus tachycardia Procedures OFFICE/OUTPATIENT NEW LOW MDM 30-44 MINUTES OFFICE/OUTPT VISIT,NEW,LEVL IV OFFICE/OUTPT VISIT,NEW,LEVL V OFFICE/OUTPT VISIT,EST,LEVL III OFFICE/OUTPT VISIT,EST,LEVL IV OFFICE/OUTPT VISIT,EST,LEVL V Keyonna Armstrong APNP [address] [place] [address] Phone: tel: fax: [address] [address] Phone: tel: fax: Referral ID Status Reason Start Date Expiration Date Visits Requested Visits Authorized [id number] Authorized Specialty Services 03/27/2024 04/28/2025 99 99 Reason for Visit * Reason Onset Date Comments Lab Results 03/27/2024 Encounter Details Date Type Department Care Team (Late st Contact Info) Description 03/27/2024 Telephone [facility] Medical Group Family & Internal Medicine [facility] [address] [place] [address] Keyonna Armstrong Bridgette, YOBANI [address] [place] [address] Lab Results Social History Tobacco Use Types [...] CDT Gender Identity Female 07/17/2022 10:27 AM TASSEL SNIPPER Sexual Orientation Straight 07/17/2022 10 :27 AM TASSEL SNIPPER documented as of this encounter Progress Notes * Flora Blackwell MA - 03/27/2024 2:08 PM CDT Contacted patient and informed that I placed the referral for Pra[place] and she will get a call to schedule. Informed no recent labs and she remembered they were from her Rug Hooker Hand and will call them. * Paulette [place] - 03/27/2024 1:30 PM CDT Pt is asking about results of recent labs. She also would like a different Cardiac Exercise Specialist. She is nothaving any luck with [facility]. She has not ever been seen yet. She would like to see someone from [place] [facility]. documented in this encounter Plan of Treatment Upcoming Encounters Date Type Department Care Team (Late st Contact Info) Description 07/25/2024 10:00 AM TASSEL SNIPPER Office Visit [facility] Medical Group Family & Internal Medicine - [place] [address] [place] [address] Keyonna Armstrong APNP [address] [place] [address] 07/31/2024 10:15 AM TASSEL SNIPPER Office Visit [facility] THREE [facility], [facility] [address] [place] [address] Pepe Mitchell MD Three [facility]. [facility] [address] [place], [place] [phone] Scheduled Referrals Name Type Priority Associated Diagnoses Orde r Schedule Ambulatory referral to Cardiology, Adult ([place] [facility] [place]) Referral Routine Sinus tachycardia Ordered: 03/27/2024 documented as of this encounter Visit Diagnoses Diagnosis Sinus tachycardia- Primary Other specified cardiac dysrhythmias documented in this encounter Additional Health Concerns Assessment Noted Time PHQ-9 Depression Total Score: 22 020 3:46 PM TASSEL SNIPPER documented as of this encounter Care Teams Pilot Can Router Relationship Specialty Start Date End Date Keyonna Armstrong APNP [facility] [place] [address] PCP - General NURSE PRACTITIONER 05/06/18 documented as of this encounter
--- OUTSIDE RECORDS SUMMARY | 2024-07-11 00:09 | XMS_ITS | Encounter Summary ---
Author Organization [facility] Address [address] [place] [address]. [place], [place] [address] [place] [address] Care Team Providers Care Formulation Scientist Name Role Phone Keyonna Armstrong Primary Care Provider [phone] Encounter Details Date Type Department Care Team [...] CDT Gender Identity Female 07/17/2022 10:27 AM UNIT CONTROLLER Sexual Orientation Straight 07/17/2022 10 :27 AM UNIT CONTROLLER documented as of this encounter Plan of Treatment Upcoming Encounters Date Type Department Care Team ( Contact Info) Description 07/25/2024 10:00 AM UNIT CONTROLLER Office Visit [facility] Medical Group Family & Internal Medicine [address] [address] Keyonna Armstrong APNP [address] [place] [address] 07/31/2024 10:15 AM UNIT CONTROLLER Office Visit [facility] THREE [facility], [facility] [address] [place], [place] [address] Pepe Mitchell MD Three [facility]. [facility] [address] [place] [address] documented as of this encounter Visit Diagnoses Not on filedocumented in this encounter Additional Health Concerns Assessment Noted Time PHQ-9 Depression Total Score: 22 020 3:46 PM UNIT CONTROLLER documented as of this encounter Care Teams Formulation Scientist Relationship Specialty Start Date End Date Keyonna Armstrong APNP [address] [place] [address] PCP - General NURSE PRACTITIONER 05/06/18 documented as of this encounter
--- OUTSIDE RECORDS SUMMARY | 2024-07-11 00:09 | XMS_ITS | Encounter Summary ---
Author Organization [facility] Address [address] [place] [address]. [place], [place] [address] [place] [address] Care Team Providers Care Border Measurer Name Role Phone Keyonna Armstrong Primary Care Provider [phone] Encounter Details Date Type Department Care Team [...] Female 07/17/2022 10:27 AM FOUNDER AND CHIEF TECHNICAL OFFICER Sexual Orientation Straight 07/17/2022 10 :27 AM FOUNDER AND CHIEF TECHNICAL OFFICER documented as of this encounter Plan of Treatment Upcoming Encounters Date Type Department Care Team ( Contact Info) Description 07/25/2024 10:00 AM FOUNDER AND CHIEF TECHNICAL OFFICER Office Visit [facility] Medical Group Family & Internal Medicine [address] [address] Keyonna Armstrong APNP [address] [place] [address] 07/31/2024 10:15 AM FOUNDER AND CHIEF TECHNICAL OFFICER Office Visit [facility] THREE [facility], [facility] [address] [place], [place] [address] Pepe Mitchell MD Three [facility]. [facility] [address] [place] [address] documented as of this encounter Visit Diagnoses Not on filedocumented in this encounter Additional Health Concerns Assessment Noted Time PHQ-9 Depression Total Score: 22 020 3:46 PM FOUNDER AND CHIEF TECHNICAL OFFICER documented as of this encounter Care Teams Border Measurer Relationship Specialty Start Date End Date Keyonna Armstrogn APNP [address] [place] [address] PCP - General NURSE PRACTITIONER 05/06/18 documented as of this encounter
--- OUTSIDE RECORDS SUMMARY | 2024-07-11 00:09 | XMS_ITS | Encounter Summary ---
Author Organization [facility] Address [address] [place] [address]. [place] [address] [place] [address] Care Team Providers Care Drum Cleaner Name Role Phone Keyonna Armstrong Primary Care Provider [phone] Reason for Visit * Reason Onset Date Comments Prior Authorization 02/27/2024 Pantoprazole 20mg #90-GoodRX Encounter Details Date Type Department Care Team (Late st Contact Info) Description 02/27/2024 Telephone [facility] Medical Group Family & Internal Medicine [place] [address] [place] [address] Keyonna Armstrong APNP [facility] [place] [address] Prior Authorization (Pantoprazole 20mg #90-GoodRX) [...] CDT Gender Identity Female 07/17/2022 10:27 AM STRIP PICKER Sexual Orientation Straight 07/17/2022 10 :27 AM STRIP PICKER documented as of this encounter Progress Notes * Julieta Pelayo MA - 02/27/2024 11:21 AM CDT PA request received for Pantoprazole 20 mg #90 tablets. NO PA REQ can use Good RX for the full amount through [facility] for around $19.63> Patient notified via jefferson Butler rma documented in this encounter Plan of Treatment Upcoming Encounters Date Type Department Care Team (Late st Contact Info) Description 07/25/2024 10:00 AM STRIP PICKER Office Visit [facility] Medical Group Family & Internal Medicine - [place] [address] [place] [address] Keyonna Armstrong APNP [facility] [place] [address] 07/31/2024 10:15 AM STRIP PICKER Office Visit [facility] THREE [facility], [facility] [address] [place] [address] Pepe Mitchell MD [facility]. [facility] [address] [place] [address] documented as of this encounter Visit Diagnoses Not on filedocumented in this encounter Additional Health Concerns Assessment Noted Time PHQ-9 Depression Total Score: 22 020 3:46 PM STRIP PICKER documented as of this encounter Care Teams Drum Cleaner Relationship Specialty Start Date End Date Keyonna Armstrong APNP [address] [place] [address] PCP - General NURSE PRACTITIONER 05/06/18 documented as of this encounter
--- OUTSIDE RECORDS SUMMARY | 2024-07-11 00:09 | XMS_ITS | Encounter Summary ---
Author Organization [facility] Address [address] [place] [address]. [place], [place] [address] [place] [address] Care Team Providers Care Android Platform Developer Name Role Phone Keyonna Armstrong Primary Care Provider [phone] Reason for Visit * Reason Comments Lab [...] 07/17/2022 10 :27 AM DRAW STRING KNOTTER documented as of this encounter Plan of Treatment Upcoming Encounters Date Type Department Care Team ( Contact Info) Description 07/25/2024 10:00 AM DRAW STRING KNOTTER Office Visit [facility] Medical Group Family & Internal Medicine [facility] [address] [place] [address] Keyonna Armstrong APNP [address] [place] [address] 07/31/2024 10:15 AM DRAW STRING KNOTTER Office Visit [facility] THREE [facility] [place] [address] [place] [address] Pepe Mitchell MD Three [facility]. [place] [address] [place], [place] [address] documented as of this encounter Procedures Procedure [...] documented as of this encounter Care Teams Android Platform Developer Relationship Specialty Start Date End Date Keyonna Armstrong APNP [address] [place] [address] PCP - General NURSE PRACTITIONER 05/06/18 documented as of this encounter
--- OUTSIDE RECORDS SUMMARY | 2024-07-11 00:09 | XMS_ITS | Encounter Summary ---
Author Organization [facility] Address [address] [place] [address]. [place], [place] [address] [place] [address] Care Team Providers Care Assessment Manager Name Role Phone Keyonna Armstrong Primary Care Provider [phone] Reason for Visit * Reason Onset Date Comments Consult 12/04/2023 Encounter Details Date Type Department Care Team (Late st Contact Info) Description 12/04/2023 [place] [address] Susi Parikh, RMA Consult Social History Tobacco [...] CDT Gender Identity Female 07/17/2022 10:27 AM PLATE PREPARER Sexual Orientation Straight 07/17/2022 10 :27 AM PLATE PREPARER documented as of this encounter Progress Notes * TINO Knowles - 12/04/2023 10:12 AM CDT DANK full, unable to leave [address] [place] [address] to schedule consult per H NEVAEH Armstrong. Will send letter for patient to contact our office to schedule. documented in this encounter Plan of Treatment Upcoming Encounters Date Type Department Care Team (Late st Contact Info) Description 07/25/2024 10:00 AM PLATE PREPARER Office Visit [facility] Medical Group Family & Internal Medicine - [place] [address] [place] [address] Keyonna Armstrong APNP [address] [place] [address] 07/31/2024 10:15 AM PLATE PREPARER Office Visit [facility] THREE [facility], [facility] [address] [place] [address] Pepe Mitchell MD Three [facility]. [facility] [address] [place], [place] [address] documented as of this encounter Visit Diagnoses Not on filedocumented in this encounter Additional Health Concerns Assessment Noted Time PHQ-9 Depression Total Score: 22 020 3:46 PM PLATE PREPARER documented as of this encounter Care Teams Assessment Manager Relationship Specialty Start Date End Date Keyonna Armstrong APNP [address] [place] [address] PCP - General NURSE PRACTITIONER 05/06/18 documented as of this encounter
--- OUTSIDE RECORDS SUMMARY | 2024-07-11 00:09 | XMS_ITS | Encounter Summary ---
Author Organization [facility] Address [address] [place] [address]. [place], [place] [address] [place] [address] Care Team Providers Care Staff Nurse Midwife Name Role Phone Keyonna Armstrong Primary Care Provider [phone] Encounter Details Date Type Department Care Team [...] CDT Gender Identity Female 07/17/2022 10:27 AM OPERATIONS OFFICER AFLOAT Sexual Orientation Straight 07/17/2022 10 :27 AM OPERATIONS OFFICER AFLOAT documented as of this encounter Plan of Treatment Upcoming Encounters Date Type Department Care Team ( Contact Info) Description 07/25/2024 10:00 AM OPERATIONS OFFICER AFLOAT Office Visit [facility] Medical Group Family & Internal Medicine [address] [address] Keyonna Armstrong APNP [address] [place] [address] 07/31/2024 10:15 AM OPERATIONS OFFICER AFLOAT Office Visit [facility] THREE [facility], [facility] [address] [place], [place] [address] Pepe Mitchell MD Three [facility]. [facility] [address] [place] [address] documented as of this encounter Visit Diagnoses Not on filedocumented in this encounter Additional Health Concerns Assessment Noted Time PHQ-9 Depression Total Score: 22 020 3:46 PM OPERATIONS OFFICER AFLOAT documented as of this encounter Care Teams Staff Nurse Midwife Relationship Specialty Start Date End Date Keyonna Armstrong APNP [address] [place] [address] PCP - General NURSE PRACTITIONER 05/06/18 documented as of this encounter
--- OUTSIDE RECORDS SUMMARY | 2024-07-11 00:09 | XMS_ITS | Encounter Summary ---
Author Organization [facility] Address [address] [place] [address]. [place], [place] [address] [place] [address] Care Team Providers Care Christian Science Practitioner Name Role Phone Keyonna Armstrong Primary Care Provider [phone] Encounter Details Date Type Department Care Team [...] CDT Gender Identity Female 07/17/2022 10:27 AM ORE FIELDER Sexual Orientation Straight 07/17/2022 10 :27 AM ORE FIELDER documented as of this encounter Plan of Treatment Upcoming Encounters Date Type Department Care Team (Late st Contact Info) Description 07/25/2024 10:00 AM ORE FIELDER Office Visit [facility] Medical Group Family & Internal Medicine [address] [address] Keyonna Armstrong APNP [address] [place] [address] 07/31/2024 10:15 AM ORE FIELDER Office Visit [facility] THREE [facility], [facility] [address] [place], [place] [address] Pepe Mitchell MD Three [facility]. [facility] [address] [place], [place] [address] documented as of this encounter Visit Diagnoses Not on filedocumented in this encounter Additional Health Concerns Assessment Noted Time PHQ-9 Depression Total Score: 22 020 3:46 PM ORE FIELDER documented as of this encounter Care Teams Christian Science Practitioner Relationship Specialty Start Date End Date Keyonna Armstrong APNP [address] [place] [address] PCP - General NURSE PRACTITIONER 05/06/18 documented as of this encounter
--- OUTSIDE RECORDS SUMMARY | 2024-07-11 00:10 | XMS_ITS | Encounter Summary ---
Author Organization [facility] Address [address] [place] [address]. [place], [place] [id number] [place] [address] Care Team Providers Care Rough Rice Tender Name Role Phone Keyonna Armstrong Primary Care Provider [phone] Encounter Details Date Type Department Care Team [...] CDT Gender Identity Female 07/17/2022 10:27 AM GLOBAL SOURCING MANAGER Sexual Orientation Straight 07/17/2022 10 :27 AM GLOBAL SOURCING MANAGER COVID-19 Exposure Response Date Recorded In the last 10 days, have yo u been in contact with someone who was confirmed or suspected to have Coronavirus/COVID-19? Unable to assess 12/11/2022 6:37 AM CDT documented as of this encounter Plan of Treatment Upcoming Encounters Date Type Department Care Team (Late st Contact Info) Description 07/25/2024 10:00 AM GLOBAL SOURCING MANAGER Office Visit [facility] Family & Internal Medicine - [place] [address] [place] [address] Keyonna Armstrong APNP [address] [place] [address] 07/31/2024 10:15 AM GLOBAL SOURCING MANAGER Office Visit [facility], [facility] [address] [place], [place] [phone] Pepe Mitchell MD Three [facility]. [facility] [address] [place], [place] [id number] documented as of this encounter Visit Diagnoses Not on filedocumented in this encounter Additional Health Concerns Assessment Noted Time PHQ-9 Depression Total Score: 22 020 3:46 PM GLOBAL SOURCING MANAGER documented as of this encounter Care Teams Rough Rice Tender Relationship Specialty Start Date End Date Keyonna Armstrong APNP [address] [place] [address] PCP - General NURSE PRACTITIONER 05/06/18 documented as of this encounter
--- OUTSIDE RECORDS SUMMARY | 2024-07-11 00:10 | XMS_ITS | Encounter Summary ---
Author Organization [facility] Address [address] [place] [address]. [place], [place] [address] [place] [address] Care Team Providers Care Insulation Cutter And Former Name Role Phone Keyonna Armstrong Primary Care Provider [phone] Encounter Details Date Type Department Care Team [...] CDT Gender Identity Female 07/17/2022 10:27 AM DOUBLE NEEDLE OPERATOR Sexual Orientation Straight 07/17/2022 10 :27 AM DOUBLE NEEDLE OPERATOR COVID-19 Exposure Response Date Recorded In the last 10 days, have yo u been in contact with someone who was confirmed or suspected to have Coronavirus/COVID-19? No / Unsure 07/20/2022 12:13 PM DOUBLE NEEDLE OPERATOR documented as of this encounter Plan of Treatment Upcoming Encounters Date Type Department Care Team (Late st Contact Info) Description 07/25/2024 10:00 AM DOUBLE NEEDLE OPERATOR Office Visit [facility] Family & Internal Medicine - [place] [address] [place] [address] Keyonna Armstrong APNP [address] [place] [address] 07/31/2024 10:15 AM DOUBLE NEEDLE OPERATOR Office Visit [facility], [facility] [address] [place] [address] Pepe Mitchell MD Three [facility]. [facility] [address] [place] [address] documented as of this encounter Visit Diagnoses Not on filedocumented in this encounter Additional Health Concerns Assessment Noted Time PHQ-9 Depression Total Score: 22 020 3:46 PM DOUBLE NEEDLE OPERATOR documented as of this encounter Care Teams Insulation Cutter And Former Relationship Specialty Start Date End Date Keyonna Armstrong APNP [address] [place] [address] PCP - General NURSE PRACTITIONER 05/06/18 documented as of this encounter
--- OUTSIDE RECORDS SUMMARY | 2024-07-11 00:10 | XMS_ITS | Encounter Summary ---
Author Organization [facility] Address [address] [place] [address]. [place] [id number] [place] [address] Care Team Providers Care Recreation Programmer Name Role Phone Keyonna Armstrong Primary Care Provider [phone] Reason for Visit * Reason Onset Date Comments Results 07/25/2022 Encounter Details Date Type Department Care Team (Late st Contact Info) Description 07/25/2022 Telephone [facility] Family & Internal Medicine [facility] [address] [place] [address] Keyonna Armstrong APNP [address] [place] [address] Results Social History Tobacco Use [...] CDT Gender Identity Female 07/17/2022 10:27 AM ECHO VASCULAR TECHNOLOGIST Sexual Orientation Straight 07/17/2022 10 :27 AM ECHO VASCULAR TECHNOLOGIST COVID-19 Exposure Response Date Recorded In the last 10 days, have yo u been in contact with someone who was confirmed or suspected to have Coronavirus/COVID-19? No / Unsure 07/20/2022 12:13 PM ECHO VASCULAR TECHNOLOGIST documented as of this encounter Progress Notes * Keyla Stallings MA - 07/26/2022 8:39 AM CST This COLLATERAL CLERK called [phone] [phone] Request sent to this fax number. C-pap machine pt uses [employer] as the supplier.[employer] number- [phone] This COLLATERAL CLERK spoke with ananya from [employer] she said have pt call [phone] hit 1 for supplies and theyshould be able to get her what she needs. Pt v/u to this. This COLLATERAL CLERK said any issues please give us a call. BB 07/26/2022 VASCULAR TECHNOLOGIST VASCULAR TECHNOLOGIST VASCULAR TECHNOLOGIST VASCULAR TECHNOLOGIST VASCULAR TECHNOLOGIST VASCULAR TECHNOLOGIST VASCULAR TECHNOLOGIST VASCULAR TECHNOLOGIST VASCULAR TECHNOLOGIST VASCULAR TECHNOLOGIST VASCULAR TECHNOLOGIST VASCULAR TECHNOLOGIST VASCULAR TECHNOLOGIST * YOBANI Cruz - 07/25/2022 7:56 PM CST Can you reach out to Sury Rivas's office and obtain pt's most recent OV notes please. Also---can we find out her CPAP supplier and see how we go about getting her CPAP mask changed to nasal pillows? VASCULAR TECHNOLOGIST documented in this encounter Plan of Treatment Upcoming Encounters Date Type Department Care Team (Late st Contact Info) Description 07/25/2024 10:00 AM ECHO VASCULAR TECHNOLOGIST Office Visit [facility] Family & Internal Medicine - [address] [address] Keyonna Armstrong APNP [address] [place] [address] 07/31/2024 10:15 AM ECHO VASCULAR TECHNOLOGIST Office Visit [facility], [facility] [address] [place] [address] Pepe Mitchell MD [facility]. [facility] [address] [place] [address] documented as of this encounter Visit Diagnoses Not on filedocumented in this encounter Additional Health Concerns Assessment Noted Time PHQ-9 Depression Total Score: 22 020 3:46 PM ECHO VASCULAR TECHNOLOGIST documented as of this encounter Care Teams Recreation Programmer Relationship Specialty Start Date End Date Keyonna Armstrong APNP [address] [place] [address] PCP - General NURSE PRACTITIONER 05/06/18 documented as of this encounter
--- OUTSIDE RECORDS SUMMARY | 2024-07-11 00:10 | XMS_ITS | Encounter Summary ---
Author Organization [facility] Address [address] [place] [address]. [place], [place] [address] [place] [address] Care Team Providers Care Maint Mechanic Name Role Phone Keyonna Armstrong Primary Care Provider [phone] Reason for Referral * Consultation (Routine) - Closed Specialty Diagnoses / Procedures Referred By Lee t Referred To Contact HEMATOLOGY/ONCOLOGY Diagnoses Abnormal CBC Procedures OFFICE/OUTPT VISIT,NEW,LEVL III OFFICE/OUTPT VISIT,NEW,LEVL IV OFFICE/OUTPT VISIT,NEW,LEVL V OFFICE/OUTPT VISIT,EST,LEVL III OFFICE/OUTPT VISIT,EST,LEVL IV OFFICE/OUTPT VISIT,EST,LEVL V Keyonna Armstrong APNP [address] [place] [address] Phone: tel: fax: Woody Horvath MD [address] [place] [address] Phone: tel: fax: Referral ID Status Reason Start Date Expiration Date V isits Requested Visits Authorized [id number] Closed Specialty Services 10/03/2022 07/29/2023 1 3 Reason for Visit * Reason Onset Date Comments Results 10/03/2022 Encounter Details Date Type Department Care Team (Late st Contact Info) Description 10/03/2022 Telephone [facility] Family & Internal Medicine - [address] [address] Keyonna Armstrong APNP [address] [place] [address] Results Social History Tobacco Use Types Packs/Day [...] CDT Gender Identity Female 07/17/2022 10:27 AM CO FOUNDER AND CHIEF STRATEGY OFFICER Sexual Orientation Straight 07/17/2022 10 :27 AM CO FOUNDER AND CHIEF STRATEGY OFFICER COVID-19 Exposure Response Date Recorded In the last 10 days, have yo u been in contact with someone who was confirmed or suspected to have Coronavirus/COVID-19? No / Unsure 09/29/2022 7:45 AM CO FOUNDER AND CHIEF STRATEGY OFFICER documented as of this encounter Progress [...] for her. Has she ever seen a butter wrapper? If not, I think she should. TG's elevated---reduce sweets, processed foods, fried foods and sugars in diet documented in this encounter Plan of Treatment Upcoming Encounters Date Type Department Care Team (Late st Contact Info) Description 07/25/2024 10:00 AM CO FOUNDER AND CHIEF STRATEGY OFFICER Office Visit [facility] Medical Group Family & Internal Medicine - [place] [address] [place] [address] Keyonna Armstrong APNP [address] [place] [address] 07/31/2024 10:15 AM CO FOUNDER AND CHIEF STRATEGY OFFICER Office Visit [facility], [facility] [address] [place], [place] [phone] ePpe Mitchell MD Three [facility]. [facility] [address] [place], [place] [phone] Scheduled Referrals Name Type Priority Associated Diagnoses Orde r Schedule Ambulatory referral to Hematology/Oncology (OTHER) Referral Routine Abnormal CBC Ordered: 10/03/2022 documented as of this encounter Visit Diagnoses Diagnosis Abnormal CBC- Primary Other abnormal blood chemistry documented in this encounter Additional Health Concerns Assessment Noted Time PHQ-9 Depression Total Score: 22 020 3:46 PM CO FOUNDER AND CHIEF STRATEGY OFFICER documented as of this encounter Care Teams Maint Mechanic Relationship Specialty Start Date End Date Keyonna Armstrong APNP [address] [place] [address] PCP - General NURSE PRACTITIONER 05/06/18 documented as of this encounter
--- OUTSIDE RECORDS SUMMARY | 2024-07-11 00:10 | XMS_ITS | Encounter Summary ---
Author Organization [facility] Address [address] [place] [address]. [place] [id number] [place], [place] [id number] Care Team Providers Care Cad Manager Name Role Phone Aracely Armstrong Primary Care Provider [phone] Reason for Visit * Reason Onset Date Comments Medication Request 11/03/2022 Encounter Details Date Type Department Care Team (Late st Contact Info) Description 11/03/2022 Telephone [facility] Family & Internal Medicine [facility] [address] [place] [address] Aracely Armstrong APNP [address] [place] [address] Medication Request Social History Tobacco [...] CDT Gender Identity Female 07/17/2022 10:27 AM RETAIL BANKING MANAGER Sexual Orientation Straight 07/17/2022 10 :27 AM RETAIL BANKING MANAGER COVID-19 Exposure Response Date Recorded In [...] like this sent to the following pharmacy: [facility]/pharmacy #[id number] [address] The next office visit: Next visit with ARACELY ARMSTRONG in FAMILY PRACTICE is on: No match found The last office visit: Last visit with ARACELY ARMSTRONG in FAMILY PRACTICE was on: 07/20/2022 in [facility] Additional Information: Pt. States her insurance has [...] st Contact Info) Description 07/25/2024 10:00 AM RETAIL BANKING MANAGER Office Visit [facility] Group Family & Internal Medicine - [address] [address] Aracely Armstrong APNP [address] [place] [address] 07/31/2024 10:15 AM RETAIL BANKING MANAGER Office Visit [facility], [facility] [address] [place] [address] Pepe Mitchell MD Three [facility]. [facility] [address] [place] [address] documented as of this encounter Visit Diagnoses Diagnosis Primary insomnia- Primary Persistent disorder of initiating or maintaining sleep documented in this encounter Additional Health Concerns Assessment Noted Time PHQ-9 Depression Total Score: 22 020 3:46 PM RETAIL BANKING MANAGER documented as of this encounter Care Teams Cad Manager Relationship Specialty Start Date End Date Aracely Armstrong APNP [address] [place] [address] PCP - General NURSE PRACTITIONER 05/06/18 documented as of this encounter
--- OUTSIDE RECORDS SUMMARY | 2024-07-11 00:10 | XMS_ITS | Encounter Summary ---
Author Organization [facility] Address [address] [place] [address]. [place] [phone] [place] [address] Care Team Providers Care Assembler Latches And Springs Name Role Phone Keyonna Armstrong Primary Care Provider [phone] Reason for Visit * Reason Onset Date Comments Apnea 09/12/2022 Encounter Details Date Type Department Care Team (Late st Contact Info) Description 09/12/2022 Telephone [facility] Medical Group Family & Internal Medicine [facility] [address] [place] [address] Keyonna Armstrong APNP [address] [place], [place] [phone] Apnea Social History Tobacco Use Types Packs/Day [...] CDT Gender Identity Female 07/17/2022 10:27 AM WORKERS COMPENSATION SPECIALIST Sexual Orientation Straight 07/17/2022 10 :27 AM WORKERS COMPENSATION SPECIALIST documented as of this encounter Progress Notes * Soo Choi RN - 09/28/2022 10:15 AM CST Faxed over order and supplies will be sipped out today. Patient notified and verbalized understanding. Opportunity given for all questions to be answered, no further needs voiced at this time. LL-09/28/22 ERS COMPENSATION SPECIALIST * YOBANI Cruz - 09/14/2022 4:12 PM CST yes ERS COMPENSATION SPECIALIST * Soo Choi RN - 09/14/2022 2:52 PM CST Okay to order? LL-09/14/22 ERS COMPENSATION SPECIALIST * Keyla Stallings MA - 09/12/2022 3:34 PM CST Pt said they called [employer] and [facility] said we need to fax a new order to [employer]. She needs new supplies and we need to fax a new order for the supplies. BB 09/12/2022 ERS COMPENSATION SPECIALIST documented in this encounter Plan of Treatment Upcoming Encounters Date Type Department Care Team (Late st Contact Info) Description 07/25/2024 10:00 AM WORKERS COMPENSATION SPECIALIST Office Visit [facility] Medical Group Family & Internal Medicine - [place] [address] [place] [address] Keyonna Armstrong APNP [address] [place] [address] 07/31/2024 10:15 AM WORKERS COMPENSATION SPECIALIST Office Visit [facility], [address] [address] Pepe Mitchell [facility] [address] [place] [address] documented as of this encounter Visit Diagnoses Not on filedocumented in this encounter Additional Health Concerns Assessment Noted Time PHQ-9 Depression Total Score: 22 020 3:46 PM WORKERS COMPENSATION SPECIALIST documented as of this encounter Care Teams Assembler Latches And Springs Relationship Specialty Start Date End Date Keyonna Armstrong APNP [facility] [place] [address] PCP - General NURSE PRACTITIONER 05/06/18 documented as of this encounter
--- OUTSIDE RECORDS SUMMARY | 2024-07-11 00:10 | XMS_ITS | Encounter Summary ---
Author Organization [facility] Address [address] [place] [address]. [place] [id number] [place] [address] Care Team Providers Care Medicare Specialist Name Role Phone Keyonna Armstrong Primary Care Provider [phone] Reason for Visit * Reason Comments Hypertension Encounter Details Date Type Department Care Team (Late st Contact Info) Description 07/20/2022 12:20 PM EXHIBIT ELECTRICIAN Office Visit [facility] [address] [place] [phone] Keyonna Armstrong APNP [facility] [place], [place] [id number] Hypertension Social History Tobacco Use Types Packs/Day [...] CDT Gender Identity Female 07/17/2022 10:27 AM EXHIBIT ELECTRICIAN Sexual Orientation Straight 07/17/2022 10 :27 AM EXHIBIT ELECTRICIAN COVID-19 Exposure Response Date Recorded In the last 10 days, have yo u been in contact with someone who was confirmed or suspected to have Coronavirus/COVID-19? No / Unsure 07/20/2022 12:13 PM EXHIBIT ELECTRICIAN documented as of this encounter Last Filed Vital Signs Vital Sign Reading Time Taken Comments Blood Pressure 132/82 07/20/2022 1:22 PM EXHIBIT ELECTRICIAN Pulse 112 07/20/2022 12:26 PM EXHIBIT ELECTRICIAN Temperature 36.3 ??C (97.4 ??F) 07/20/2022 12:[address] Respiratory Rate 16 07/20/2022 12:26 PM EXHIBIT ELECTRICIAN Oxygen Saturation 97% 07/20/2022 12:26 PM EXHIBIT ELECTRICIAN Inhaled Oxygen Concentration - - Weight 133.4 kg (294 lb) 07/20/2022 12:26 PM EXHIBIT ELECTRICIAN Height 165.1 cm (5' 5) 07/20/2022 12:26 PM EXHIBIT ELECTRICIAN Body Mass Index 48.92 07/20/2022 12:26 PM EXHIBIT ELECTRICIAN documented in this encounter Progress Notes * YOBANI Cruz - 07/20/2022 12:20 PM CST Images from the original note were not included. [facility] FAMILY AND INTERNAL MEDICINE OFFICE VISIT Reason [...] SCREENING performed by Burt Payne MD at [facility] ??? GASTRIC BYPASS N/A 2004 Social History: [...] Kel Solo MD at 07/25/2022 9:47 PM EXHIBIT ELECTRICIAN BIT ELECTRICIAN BIT ELECTRICIAN documented in this encounter Plan of Treatment Upcoming Encounters Date Type Department Care Team (Late st Contact Info) Description 07/25/2024 10:00 AM EXHIBIT ELECTRICIAN Office Visit [facility] Family & Internal Medicine - [place] [address] [place] [address] Keyonna Armstrong APNP [address] [place] [address] 07/31/2024 10:15 AM EXHIBIT ELECTRICIAN Office Visit [facility] [place] [address] [place], [place] [phone] Pepe Mitchell MD Three [facility]. [place] [address] [place], [place] [phone] documented as of this encounter Procedures Procedure Name Priority Date/Time Associated Diagnosis Comments URINALYSIS WI REFLEX TO CULTURE Routine 09/29/2022 7:55 AM EXHIBIT ELECTRICIAN Primary hypertension TSH W/REFLEX Routine 09/29/2022 7:55 AM EXHIBIT ELECTRICIAN Primary insomnia Anxiety Primary hypertension COMPREHENSIVE METABOLIC PANEL Routine 09/29/2022 7:55 AM EXHIBIT ELECTRICIAN Obstructive sleep apnea Primary hypertension Dyslipidemia LIPID PANEL Routine 09/29/2022 7:55 AM EXHIBIT ELECTRICIAN Dyslipidemia CBC W/DIFF AUTOMATED Routine 09/29/2022 7:55 AM EXHIBIT ELECTRICIAN Obstructive sleep apnea documented in this encounter Results * COMPREHENSIVE METABOLIC PANEL (09/29/2022 7:55 AM EXHIBIT ELECTRICIAN) [facility] GLUCOSE 97 65 - 99 mg/dL [facility] Comment: ? Fasting reference interval BUN 16 7 - 25 mg/dL [facility] CREATININE S/P/B 0.69 0.50 - 1.03 mg/dL [facility] GFR ESTIMATE 103 > OR = 60 mL/min/1 .73m2 [facility] Comment: The eGFR is based on the CKD-EPI 2020 equation. To calculate the new eGFR from a previous Creatinine or Cystatin C result, go to https://www.kidney.org/professionals/ kdoqi/gfr%5Fcalculator BUN CREATININE RATIO NOT APPLICABLE 6 - 22 (calc) [facility] SODIUM S/P/B 140 135 - 146 mmol/L [facility] POTASSIUM S/P/B 4.1 3.5 - 5.3 mmol/L [facility] CHLORIDE S/P/B 100 98 - 110 mmol/L [facility] CO2 31 20 - 32 mmol/L [facility] CALCIUM S/P/B 9.9 8.6 - 10.4 mg/dL [facility] TOTAL PROTEIN S/P/B 7.2 6.1 - 8.1 g/dL [facility] ALBUMIN S/P/B 4.3 3.6 - 5.1 g/dL [facility] GLOBULIN 2.9 1.9 - 3.7 g/dL (calc) [facility] ALBUMIN/GLOBULI N RATIO 1.5 1.0 - 2.5 (calc) [facility] BILIRUBIN TOTAL S/P/B 0.4 0.2 - 1.2 mg/dL [facility] ALKALINE PHOSPHATASE S/P/B 101 37 - 153 U/L [facility] AST 21 10 - 35 U/L [facility] ALT 27 6 - 29 U/L [facility] 09/29/2022 7:55 AM EXHIBIT ELECTRICIAN 09/30/2022 3:53 AM EXHIBIT ELECTRICIAN Narrative Resulting Agency Comment Performing Organization Information: ?Site ID: [place] ?Name: Gerry HellerKayce ?Address: [address] [place] [address] ?Director: Josiah Jones MD us Keyonna [facility] Final Resul t [facility] [address] [place] [address], [place] * (ABNORMAL) URINALYSIS WI REFLEX TO CULTURE (09/29/2022 7:55 AM EXHIBIT ELECTRICIAN) COLOR (U) YELLOW YELLOW [facility] APPEARANCE SEMEN CLEAR CLEAR [facility] SPECIFIC GRAVITY (U) 1.011 1.001 - 1.035 [facility] PH (U) 7.0 5.0 - 8.0 [...] /LPF [facility] REFLEX URINE CULTURE: [facility] Comment:NO CULTURE INDICATED URINE SPECIMEN OBTAINED BY CLEAN CATCH PROCEDURE / Unknown 09/29/2022 7:55 AM EXHIBIT ELECTRICIAN 09/30/2022 5:15 AM EXHIBIT ELECTRICIAN Narrative Resulting Agency Comment Performing Organization Information: ?Site ID: [place] ?Name: upad[facility]Kay[facility] ?Address: [address] [place] [address] ?Director: Josiah Jones MD Keyonna [facility] Final Resu lt [facility] - YEFRI ORDERS [facility] [address] * TSH W/REFLEX (09/29/2022 7:55 AM EXHIBIT ELECTRICIAN) TSH 1.73 mIU/L [facility] Comment: ?Reference Range ?> or = 20 Years ??0.40-4.50 ? Ranges ?First trimester ?0.26-2.66 ?Second trimester ?? 0.55-2.73 ?Third trimester ?0.43-2.91 09/29/2022 7:55 AM EXHIBIT ELECTRICIAN 09/30/2022 3:53 AM EXHIBIT ELECTRICIAN Narrative Resulting Agency Comment Performing Organization Information: ?Site ID: [place] ?Name: Gerry Hutchison ?Address: [address] [place] [address] ?Director: Josiah Jones MD us Keyonna [facility] Final Resul t [facility] [address] [place] [address], * (ABNORMAL) LIPID PANEL (09/29/2022 7:55 AM EXHIBIT ELECTRICIAN) CHOLESTEROL 181 <200 mg/dL [facility] HDL 57 > OR = 50 mg/dL [facility] TRIGLYCERIDES 192(H) <150 mg/dL [facility] LDL (CALCULATED) 95 mg/dL (calc) [facility] Comment: Reference range: <100 Desirable range <100 mg/dL for primary prevention; ?? <70 mg/dL for patients with CHD or diabetic patients with > or = 2 CHD risk factors. LDL-C is now calculated using the Deep-Laya calculation, which is a validated novel method providing better accuracy than the Friedewald equation in the estimation of LDL-C. Deep GREER et al. JAMAR. 2013;310(19): 7947-1049 (http://education.CommitChange.Clean Membranes/faq/QKK539) CHOL/HDL RATIO 3.2 <5.0 (calc) [facility] NON HDL CHOLESTEROL 124 <130 mg/dL (calc) [facility] Comment: For patients with diabetes plus 1 major ASCVD risk factor, treating to a non-HDL-C goal of <100 mg/dL (LDL-C of <70 mg/dL) is considered a therapeutic option. 09/29/2022 7:55 AM EXHIBIT ELECTRICIAN 09/30/2022 3:53 AM EXHIBIT ELECTRICIAN Narrative Resulting Agency Comment Performing Organization Information: ?Site ID: [place] ?Name: Gerry Hutchison ?Address: [address] [address] ?Director: Josiah Jones MD us Keyonna [facility] Final Resul t GERRY CID [facility] [address] [address], * (ABNORMAL) CBC W/DIFF AUTOMATED (09/29/2022 7:55 AM EXHIBIT ELECTRICIAN) WBC 12.1(H) 3.8 - 10.8 Thousand/ uL [facility] RBC 4.57 3.80 - 5.10 Million/u L [facility] HGB 14.4 11.7 - 15.5 g/dL [facility] HCT 43.0 35.0 - 45.0 % [facility] MCV 94.1 80.0 - 100.0 fL [facility] MCH 31.5 27.0 - 33.0 pg [facility] MCHC 33.5 32.0 - 36.0 [...] % [facility] 09/29/2022 7:55 AM EXHIBIT ELECTRICIAN 09/30/2022 3:53 AM EXHIBIT ELECTRICIAN Narrative Resulting Agency Comment Performing Organization Information: ?Site ID: RICH ?Name: Gerry Hutchison ?Address: [address] [address] ?Director: Josiah Jones MD us Keyonna [facility] Final Resul t GERRY HELLER - YEFRI ORDERS [facility] [address] [place] [address], documented in this encounter Visit Diagnoses Diagnosis [...] Depression Total Score: 22 020 3:46 PM EXHIBIT ELECTRICIAN documented as of this encounter Care Teams Medicare Specialist Relationship Specialty Start Date End Date Keyonna Armstrong APNP [address] [place] [address] PCP - General NURSE PRACTITIONER 05/06/18 documented as of this encounter
--- OUTSIDE RECORDS SUMMARY | 2024-07-11 00:10 | XMS_ITS | Encounter Summary ---
Author Organization [facility] Address [address] [place] [address]. [place] [phone] [place] [address] Care Team Providers Care Fig Bar Machine Operator Name Role Phone Eden Armstrong Primary Care Provider [phone] Reason for Visit * Reason Onset Date Comments Question 12/01/2022 Encounter Details Date Type Department Care Team (Late st Contact Info) Description 12/01/2022 Telephone [facility] Family & Internal Medicine [facility] [address] [place] [address] Eden Armstrong APNP [address] [place] [address] Question Social History Tobacco Use [...] CDT Gender Identity Female 07/17/2022 10:27 AM SWIMMING POOL MAINTENANCE SUPERVISOR Sexual Orientation Straight 07/17/2022 10 :27 AM SWIMMING POOL MAINTENANCE SUPERVISOR COVID-19 Exposure Response Date Recorded In [...] st Contact Info) Description 07/25/2024 10:00 AM SWIMMING POOL MAINTENANCE SUPERVISOR Office Visit [facility] Family & Internal Medicine - [place] [address] [place] [address] Eden Armstrong APNP [address] [place] [address] 07/31/2024 10:15 AM SWIMMING POOL MAINTENANCE SUPERVISOR Office Visit [facility], [address] [address] Pepe Mitchell MD [facility] [address] [place] [address] documented as of this encounter Visit Diagnoses Not on filedocumented in this encounter Additional Health Concerns Assessment Noted Time PHQ-9 Depression Total Score: 22 07/29/ 020 3:46 PM SWIMMING POOL MAINTENANCE SUPERVISOR documented as of this encounter Care Teams Fig Bar Machine Operator Relationship Specialty Start Date End Date Eden Armstrong APNP [address] [place] [address] PCP - General NURSE PRACTITIONER 05/06/18 documented as of this encounter
--- OUTSIDE RECORDS SUMMARY | 2024-07-11 00:10 | XMS_ITS | Encounter Summary ---
Author Organization [facility] Address [address] [place] [address]. [place], [place] [address] [place] [address] Care Team Providers Care Cartoonist Special Effects Name Role Phone Keyonna Armstrong Primary Care Provider [phone] Encounter Details Date Type Department Care Team [...] CDT Gender Identity Female 07/17/2022 10:27 AM CUSTOMER SERVICE OPERATOR Sexual Orientation Straight 07/17/2022 10 :27 AM CUSTOMER SERVICE OPERATOR documented as of this encounter Plan of Treatment Upcoming Encounters Date Type Department Care Team ( Contact Info) Description 07/25/2024 10:00 AM CUSTOMER SERVICE OPERATOR Office Visit [facility] Medical Group Family & Internal Medicine [address] [address] Keyonna Armstrong APNP [address] [place] [address] 07/31/2024 10:15 AM CUSTOMER SERVICE OPERATOR Office Visit [facility] THREE [facility] [address] [place], [place] [address] Pepe Mitchell MD Three [facility]. [facility] [address] [place] [address] documented as of this encounter Visit Diagnoses Not on filedocumented in this encounter Additional Health Concerns Assessment Noted Time PHQ-9 Depression Total Score: 22 020 3:46 PM CUSTOMER SERVICE OPERATOR documented as of this encounter Care Teams Cartoonist Special Effects Relationship Specialty Start Date End Date Keyonna Armstrong APNP [address] [place] [address] PCP - General NURSE PRACTITIONER 05/06/18 documented as of this encounter
--- OUTSIDE RECORDS SUMMARY | 2024-07-11 00:10 | XMS_ITS | Encounter Summary ---
Author Organization [facility] Address [address] [place] [address]. [place], [place] [address] [place] [address] Care Team Providers Care Supervisor Gas Meter Repair Name Role Phone Keoynna Armstrong Primary Care Provider [phone] Reason for Visit * Reason Comments Lab [...] CDT Gender Identity Female 07/17/2022 10:27 AM GOLD PROSPECTOR Sexual Orientation Straight 07/17/2022 10 :27 AM GOLD PROSPECTOR documented as of this encounter Plan of Treatment Upcoming Encounters Date Type Department Care Team (Late st Contact Info) Description 07/25/2024 10:00 AM GOLD PROSPECTOR Office Visit [facility] Family & Internal Medicine - [place] [address] [place] [address] Keyonna Armstrong APNP [address] [place] [address] 07/31/2024 10:15 AM GOLD PROSPECTOR Office Visit [facility] THREE [facility], [place] [address] [place], [place] [address] Pepe Mitchell MD Three [facility]. [facility] [address] [place] [address] documented as of this encounter [...] Anatomical Region Laterality Modality Other 06/12/2023 Result [facility] us [facility] Group Scanned SCANNING Final Resu lt * ECG GENERIC (SCAN ORDER) (06/12/2023) 06/12/2023 us [facility] Scanned SCANNING Final Resu lt * ECG GENERIC (SCAN ORDER) (06/12/2023) 06/12/2023 us [facility] Scanned SCANNING Final Resu lt documented in this encounter Visit Diagnoses Not on filedocumented in this encounter Additional Health Concerns Assessment Noted Time PHQ-9 Depression Total Score: 22 07/29/2 020 3:46 PM GOLD PROSPECTOR documented as of this encounter Care Teams Supervisor Gas Meter Repair Relationship Specialty Start Date End Date Keyonna Armstrong APNP [address] [place] [address] PCP - General NURSE PRACTITIONER 05/06/18 documented as of this encounter
--- OUTSIDE RECORDS SUMMARY | 2024-07-11 00:10 | XMS_ITS | Encounter Summary ---
Author Organization [facility] Address [address] [place] [address]. [place], [place] [address] [place] [address] Care Team Providers Care Polygraph Technician Name Role Phone Keyonna Armstrong Primary Care Provider [phone] Reason for Visit * Reason Comments Lab [...] CDT Gender Identity Female 07/17/2022 10:27 AM HIGH RISK CASE MANAGER Sexual Orientation Straight 07/17/2022 10 :27 AM HIGH RISK CASE MANAGER COVID-19 Exposure Response Date Recorded In the last 10 days, have yo u been in contact with someone who was confirmed or suspected to have Coronavirus/COVID-19? Unable to assess 10/23/2022 6:39 AM CDT documented as of this encounter Plan of Treatment Upcoming Encounters Date Type Department Care Team (Late st Contact Info) Description 07/25/2024 10:00 AM HIGH RISK CASE MANAGER Office Visit [facility] Medical [facility] Family & Internal Medicine - [place] [address] [place] [address] Keyonna Armstrong APNP [address] [place] [address] 07/31/2024 10:15 AM HIGH RISK CASE MANAGER Office Visit [facility] [place] [address] [place], [place] [phone] Pepe Mitchell MD Three [facility]. [facility] [address] [place], [place] [phone] documented as of this encounter Procedures Procedure Name Priority Date/Time Associated Diagnosis Comments OUTSIDE LAB (SCAN ORDER) 11/13/2022 OUTSIDE LAB (SCAN ORDER) 11/13/2022 documented in this encounter Results * OUTSIDE LAB (SCAN) (11/13/2022) 11/13/2022 [email or web address] Scanned SCANNING Final Resu lt * OUTSIDE LAB (SCAN) (11/13/2022) 11/13/2022 [email or web address] Scanned SCANNING Final Resu lt documented in this encounter Visit Diagnoses Not on filedocumented in this encounter Additional Health Concerns Assessment Noted Time PHQ-9 Depression Total Score: 22 020 3:46 PM HIGH RISK CASE MANAGER documented as of this encounter Care Teams Polygraph Technician Relationship Specialty Start Date End Date Keyonna Armstrong APNP [address] [place] [address] PCP - General NURSE PRACTITIONER 05/06/18 documented as of this encounter
--- OUTSIDE RECORDS SUMMARY | 2024-07-11 00:10 | XMS_ITS | Encounter Summary ---
Author Organization [facility] Address [address] [place] [address]. [place], [place] [address] [place] [address] Care Team Providers Care Trust And Estates Attorney Name Role Phone Keyonna Armstrong Primary Care Provider [phone] Encounter Details Date Type Department Care Team [...] CDT Gender Identity Female 07/17/2022 10:27 AM ASSET 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 Sexual Orientation Straight 07/17/2022 10 :27 AM ASSET 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 documented as of this encounter Plan of Treatment Upcoming Encounters Date Type Department Care Team (Late st Contact Info) Description 07/25/2024 10:00 AM ASSET 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 Office Visit [facility] Medical Group Family & Internal Medicine [address] [address] Keyonna Armstrong APNP [address] [place] [address] 07/31/2024 10:15 AM ASSET 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 Office Visit [facility] THREE [facility] [address] [place], [place] [phone] Pepe Mitchell MD Three [facility]. [facility] [address] [place] [address] documented as of this encounter Visit Diagnoses Not on filedocumented in this encounter Additional Health Concerns Assessment Noted Time PHQ-9 Depression Total Score: 22 020 3:46 PM ASSET 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 documented as of this encounter Care Teams Trust And Estates Attorney Relationship Specialty Start Date End Date Keyonna Armstrong APNP [address] [place] [address] PCP - General NURSE PRACTITIONER 05/06/18 documented as of this encounter
--- OUTSIDE RECORDS SUMMARY | 2024-07-11 00:10 | XMS_ITS | Encounter Summary ---
Author Organization [facility] Address [address] [place] [address]. [place] [phone] [place] [address] Care Team Providers Care Repairer Auto Clocks Name Role Phone Keyonna Armstrong Primary Care Provider [phone] Reason for Visit * Reason Onset Date Comments Medication 03/08/2023 Encounter Details Date Type Department Care Team (Late st Contact Info) Description 03/08/2023 Telephone [facility] Medical Group Family & Internal Medicine [facility] [address] [place] [address] Keyonna Armstrong APNP [address] [place] [address] Medication Social History Tobacco Use [...] CDT Gender Identity Female 07/17/2022 10:27 AM EMPLOYEE OPERATIONS EXAMINER Sexual Orientation Straight 07/17/2022 10 :27 AM EMPLOYEE OPERATIONS EXAMINER documented as of this encounter Progress Notes * YOBANI Cruz - 03/09/2023 3:47 PM CDT Meds sent over * Claritza Velázquez MA - 03/09/2023 1:05 PM CDT Called [facility] and confirmed she did not fruit or nut picker there. Needing sent to : [facility]/pharmacy #[id number] - [place], [place] - [address] AT [facility] * YOBANI Cruz - 03/08/2023 5:05 PM CDT Did we call her local pharmacy to verify that she never picked up? * Claritza Velázquez MA - 03/08/2023 4:41 PM CDT FYI: According to PDMP, this was just filled 03/06 in [place], but pt said she didn't fruit or nut picker d/t pharmacy closed early. I meant to pend this rx for you, but accidentally printed. Nenita Young witnessed this printed rx being destroyed. Could you send this rx to the pharmacy selected ([place], [place]) I called pt to confirm this is correct pharmacy. * Rocio Calderón - 03/08/2023 1:45 PM CDT Pt requests her rx for zolpidem CR (AMBIEN CR) 12.5 MG tablet be sent to [facility] in [place] documented in this encounter Plan of Treatment Upcoming Encounters Date Type Department Care Team (Late st Contact Info) Description 07/25/2024 10:00 AM EMPLOYEE OPERATIONS EXAMINER Office Visit [facility] Medical Group Family & Internal Medicine - [place] [address] [place] [address] Keyonna Armstrong APNP [address] [place] [address] 07/31/2024 10:15 AM EMPLOYEE OPERATIONS EXAMINER Office Visit [facility] THREE [facility], [facility] [address] [place] [address] Pepe Mitchell MD Three [facility]. [facility] [address] [place] [address] documented as of this encounter Visit Diagnoses Diagnosis Primary insomnia Persistent disorder of initiating or maintaining sleep documented in this encounter Additional Health Concerns Assessment Noted Time PHQ-9 Depression Total Score: 22 020 3:46 PM EMPLOYEE OPERATIONS EXAMINER documented as of this encounter Care Teams Repairer Auto Clocks Relationship Specialty Start Date End Date Keyonna Armstrong APNP [facility] [place] [address] PCP - General NURSE PRACTITIONER 05/06/18 documented as of this encounter
--- OUTSIDE RECORDS SUMMARY | 2024-07-11 00:10 | XMS_ITS | Encounter Summary ---
Author Organization [facility] Address [address] [place] [address]. [place], [place] [address] [place] [address] Care Team Providers Care Appeals Rn Name Role Phone Keyonna Armstrong Primary Care Provider [phone] Encounter Details Date Type Department Care Team [...] CDT Gender Identity Female 07/17/2022 10:27 AM ROUGH RIB GRADER Sexual Orientation Straight 07/17/2022 10 :27 AM ROUGH RIB GRADER documented as of this encounter Plan of Treatment Upcoming Encounters Date Type Department Care Team ( Contact Info) Description 07/25/2024 10:00 AM ROUGH RIB GRADER Office Visit [facility] Medical Group Family & Internal Medicine [address] [address] Keyonna Armstrong APNP [address] [place] [address] 07/31/2024 10:15 AM ROUGH RIB GRADER Office Visit [facility], [facility] [address] [place], [place] [address] Pepe Mitchell MD Three [facility]. [facility] [address] [place] [address] documented as of this encounter Visit Diagnoses Not on filedocumented in this encounter Additional Health Concerns Assessment Noted Time PHQ-9 Depression Total Score: 22 020 3:46 PM ROUGH RIB GRADER documented as of this encounter Care Teams Appeals Rn Relationship Specialty Start Date End Date Keyonna Armstrong APNP [address] [place] [address] PCP - General NURSE PRACTITIONER 05/06/18 documented as of this encounter
--- OUTSIDE RECORDS SUMMARY | 2024-07-11 00:10 | XMS_ITS | Encounter Summary ---
Author Organization [facility] Address [address] [place] [address]. [place], [place] [address] [place] [address] Care Team Providers Care Security Patrol Driver Name Role Phone Keyonna Armstrong Primary Care Provider [phone] Encounter Details Date Type Department Care Team (Late st Contact Info) Description 09/29/2022 8:00 AM CODING QUALITY ANALYST Laboratory Only [facility] Medical Group Family & Internal Medicine [facility] [address] [place] [phone] Keyonna Armstrong APNP [address] [place] [address] Social History Tobacco Use Types Packs/Day Years [...] CDT Gender Identity Female 07/17/2022 10:27 AM CODING QUALITY ANALYST Sexual Orientation Straight 07/17/2022 10 :27 AM CODING QUALITY ANALYST COVID-19 Exposure Response Date Recorded In the last 10 days, have yo u been in contact with someone who was confirmed or suspected to have Coronavirus/COVID-19? No / Unsure 09/29/2022 7:45 AM CODING QUALITY ANALYST documented as of this encounter Plan of Treatment Upcoming Encounters Date Type Department Care Team (Late st Contact Info) Description 07/25/2024 10:00 AM CODING QUALITY ANALYST Office Visit [facility] Medical Group Family & Internal Medicine - [place] [address] [place] [address] Keyonna Armstrong APNP [address] [place] [address] 07/31/2024 10:15 AM CODING QUALITY ANALYST Office Visit [facility], [facility] [address] [place], [place] [phone] Pepe Mitchell MD [facility]. [facility] [address] [place], [place] [phone] documented as of this encounter Procedures Procedure Name Priority Date/Time Associated Diagnosis Comments VENIPUNC ARM DRAW Routine 09/29/2022 8:08 AM CODING QUALITY ANALYST Recurrent major depressive disorder, in partial remission Adenoma of left adrenal gland Dyslipidemia BMI 45.0-49.9, adult ([facility]) documented in this encounter Visit Diagnoses Diagnosis Recurrent major depressive disorder, in partial remission ([facility])- Primary Adenoma of left adrenal gland Benign neoplasm of adrenal gland Dyslipidemia Other and unspecified hyperlipidemia BMI 45.0-49.9, adult ([facility]) Body Mass Index 45.0-49.9, adult documented in this encounter Additional Health Concerns Assessment Noted Time PHQ-9 Depression Total Score: 22 020 3:46 PM CODING QUALITY ANALYST documented as of this encounter Care Teams Security Patrol Driver Relationship Specialty Start Date End Date Keyonna Armstrong APNP [facility] [place] [address] PCP - General NURSE PRACTITIONER 05/06/18 documented as of this encounter
--- OUTSIDE RECORDS SUMMARY | 2024-07-11 00:10 | XMS_ITS | Encounter Summary ---
Author Organization [facility] Address [address] [place] [address]. [place], [place] [address] [place] [address] Care Team Providers Care Transonic Engineer Name Role Phone Keyonna Armstrong Primary Care Provider [phone] Encounter Details Date Type Department Care Team [...] CDT Gender Identity Female 07/17/2022 10:27 AM DIAGNOSTIC SALES SPECIALIST Sexual Orientation Straight 07/17/2022 10 :27 AM DIAGNOSTIC SALES SPECIALIST COVID-19 Exposure Response Date Recorded In the last 10 days, have yo u been in contact with someone who was confirmed or suspected to have Coronavirus/COVID-19? Unable to assess 12/11/2022 6:37 AM CDT documented as of this encounter Plan of Treatment Upcoming Encounters Date Type Department Care Team (Late Contact Info) Description 07/25/2024 10:00 AM DIAGNOSTIC SALES SPECIALIST Office Visit [facility] Medical Group Family & Internal Medicine - [place] [address] [place] [address] Keyonna Armstrong APNP [address] [place] [address] 07/31/2024 10:15 AM DIAGNOSTIC SALES SPECIALIST Office Visit [facility], [facility] [address] [place] [address] Pepe Mitchell MD Three [facility]. [facility] [address] [place] [address] documented as of this encounter Visit Diagnoses Not on filedocumented in this encounter Additional Health Concerns Assessment Noted Time PHQ-9 Depression Total Score: 22 020 3:46 PM DIAGNOSTIC SALES SPECIALIST documented as of this encounter Care Teams Transonic Engineer Relationship Specialty Start Date End Date Keyonna Armstrong APNP [address] [place] [address] PCP - General NURSE PRACTITIONER 05/06/18 documented as of this encounter
--- OUTSIDE RECORDS SUMMARY | 2024-07-11 00:10 | XMS_ITS | Encounter Summary ---
Author Organization [facility] Address [address] [place] [address]. [place], [place] [address] [place] [address] Care Team Providers Care Horticultural Therapist Name Role Phone Keyonna Armstrong Primary Care Provider [phone] Encounter Details Date Type Department Care Team [...] Gender Identity Female 07/17/2022 10:27 AM SALES SERVICE COORDINATOR Sexual Orientation Straight 07/17/2022 10 :27 AM SALES SERVICE COORDINATOR COVID-19 Exposure Response Date Recorded In the last 10 days, have yo u been in contact with someone who was confirmed or suspected to have Coronavirus/COVID-19? Unable to assess 10/23/2022 6:39 AM CDT documented as of this encounter Plan of Treatment Upcoming Encounters Date Type Department Care Team (Late st Contact Info) Description 07/25/2024 10:00 AM SALES SERVICE COORDINATOR Office Visit [facility] Medical Group Family & Internal Medicine - [place] [address] [place] [address] Keyonna Armstrong APNP [address] [place] [address] 07/31/2024 10:15 AM SALES SERVICE COORDINATOR Office Visit [facility] THREE [facility], [facility] [address] [place] [address] Pepe Mitchell MD Three [facility]. [facility] [address] [place], [place] [phone] documented as of this encounter Visit Diagnoses Not on filedocumented in this encounter Additional Health Concerns Assessment Noted Time PHQ-9 Depression Total Score: 22 020 3:46 PM SALES SERVICE COORDINATOR documented as of this encounter Care Teams Horticultural Therapist Relationship Specialty Start Date End Date Keyonna Armstrong APNP [address] [place] [address] PCP - General NURSE PRACTITIONER 05/06/18 documented as of this encounter
--- OUTSIDE RECORDS SUMMARY | 2024-07-11 00:10 | XMS_ITS | Encounter Summary ---
Author Organization [facility] Address [address] [place] [address]. [place], [place] [address] [place] [address] Care Team Providers Care Quiller Runner Name Role Phone Keyonna Armstrong Primary Care Provider [phone] Encounter Details Date Type Department Care Team [...] CDT Gender Identity Female 07/17/2022 10:27 AM PLASTIC TUBING INSULATION SUPERVISOR Sexual Orientation Straight 07/17/2022 10 :27 AM PLASTIC TUBING INSULATION SUPERVISOR documented as of this encounter Plan of Treatment Upcoming Encounters Date Type Department Care Team ( Contact Info) Description 07/25/2024 10:00 AM PLASTIC TUBING INSULATION SUPERVISOR Office Visit [facility] Medical Group Family & Internal Medicine [address] [address] Keyonna Armstrong APNP [address] [place] [address] 07/31/2024 10:15 AM PLASTIC TUBING INSULATION SUPERVISOR Office Visit [facility] THREE [facility], [facility] [address] [place] [address] Pepe Mitchell MD Three [facility]. [facility] [address] [place] [address] documented as of this encounter Visit Diagnoses Not on filedocumented in this encounter Additional Health Concerns Assessment Noted Time PHQ-9 Depression Total Score: 22 020 3:46 PM PLASTIC TUBING INSULATION SUPERVISOR documented as of this encounter Care Teams Quiller Runner Relationship Specialty Start Date End Date Keyonna Armstrong APNP [address] [place] [address] PCP - General NURSE PRACTITIONER 05/06/18 documented as of this encounter
--- OUTSIDE RECORDS SUMMARY | 2024-07-11 00:10 | XMS_ITS | Encounter Summary ---
Author Organization [facility] Address [address] [place] [address]. [place] [phone] [place] [address] Care Team Providers Care M48/M60 Tank Driver Name Role Phone Keyonna Armstrong Primary Care Provider [phone] Reason for Visit * Reason Onset Date Comments Other 10/20/2022 Encounter Details Date Type Department Care Team (Late st Contact Info) Description 10/20/2022 Telephone [facility] Medical Group Family & Internal Medicine [facility] [address] [place] [address] Keyonna Armstrong APNP [address] [place] [address] Other Social History Tobacco Use [...] CDT Gender Identity Female 07/17/2022 10:27 AM CURING PICKLING PACKER Sexual Orientation Straight 07/17/2022 10 :27 AM CURING PICKLING PACKER COVID-19 Exposure Response Date Recorded In the last 10 days, have yo u been in contact with someone who was confirmed or suspected to have Coronavirus/COVID-19? No / Unsure 09/29/2022 7:45 AM CURING PICKLING PACKER documented as of this encounter Progress Notes [...] st Contact Info) Description 07/25/2024 10:00 AM CURING PICKLING PACKER Office Visit [facility] Medical Group Family & Internal Medicine - [place] [address] [place] [address] Keyonna Armstrong APNP [address] [place] [address] 07/31/2024 10:15 AM CURING PICKLING PACKER Office Visit [facility] THREE [facility], [place] [address] [place] [address] Pepe Mitchell MD [place] [address] [place] [address] documented as of this encounter Visit Diagnoses Not on filedocumented in this encounter Additional Health Concerns Assessment Noted Time PHQ-9 Depression Total Score: 22 020 3:46 PM CURING PICKLING PACKER documented as of this encounter Care Teams M48/M60 Tank Driver Relationship Specialty Start Date End Date Keyonna Armstrong APNP [address] [place] [address] PCP - General NURSE PRACTITIONER 05/06/18 documented as of this encounter
--- OUTSIDE RECORDS SUMMARY | 2024-07-11 00:10 | XMS_ITS | Encounter Summary ---
Author Organization [facility] Address [address] [place] [address]. [place], [place] [address] [place] [address] Care Team Providers Care Oracle Dba Name Role Phone Keyonna Armstrong Primary Care Provider [phone] Encounter Details Date Type Department Care Team [...] CDT Gender Identity Female 07/17/2022 10:27 AM GROCERY CHECKER Sexual Orientation Straight 07/17/2022 10 :27 AM GROCERY CHECKER COVID-19 Exposure Response Date Recorded In the last 10 days, have yo u been in contact with someone who was confirmed or suspected to have Coronavirus/COVID-19? Unable to assess 12/11/2022 6:37 AM CDT documented as of this encounter Plan of Treatment Upcoming Encounters Date Type Department Care Team (Late st Contact Info) Description 07/25/2024 10:00 AM GROCERY CHECKER Office Visit [facility] Medical Group Family & Internal Medicine - [place] [address] [place] [address] Keyonna Armstrong APNP [address] [place] [address] 07/31/2024 10:15 AM GROCERY CHECKER Office Visit [facility] THREE [facility], [facility] [address] [place], [place] [phone] Pepe Mitchell MD Three [facility]. [facility] [address] [place], [place] [phone] documented as of this encounter Visit Diagnoses Not on filedocumented in this encounter Additional Health Concerns Assessment Noted Time PHQ-9 Depression Total Score: 22 020 3:46 PM GROCERY CHECKER documented as of this encounter Care Teams Oracle Dba Relationship Specialty Start Date End Date Keyonna Armstrong APNP [address] [place] [address] PCP - General NURSE PRACTITIONER 05/06/18 documented as of this encounter
--- OUTSIDE RECORDS SUMMARY | 2024-07-11 00:10 | XMS_ITS | Encounter Summary ---
Author Organization [facility] Address [address] [place] [address]. [place], [place] [address] [place] [address] Care Team Providers Care Wire Stockkeeper Name Role Phone Keyonna Armstrong Primary Care Provider [phone] Encounter Details Date Type Department Care Team [...] CDT Gender Identity Female 07/17/2022 10:27 AM STORAGE GARAGE ATTENDANT Sexual Orientation Straight 07/17/2022 10 :27 AM STORAGE GARAGE ATTENDANT COVID-19 Exposure Response Date Recorded In the last 10 days, have yo u been in contact with someone who was confirmed or suspected to have Coronavirus/COVID-19? No / Unsure 09/29/2022 7:45 AM STORAGE GARAGE ATTENDANT documented as of this encounter Plan of Treatment Upcoming Encounters Date Type Department Care Team (Late st Contact Info) Description 07/25/2024 10:00 AM STORAGE GARAGE ATTENDANT Office Visit [facility] Medical Group Family & Internal Medicine - [place] [address] [place] [address] Keyonna Armstrong APNP [address] [place] [address] 07/31/2024 10:15 AM STORAGE GARAGE ATTENDANT Office Visit [facility] THREE [facility], [facility] [address] [place] [address] Pepe Mitchell MD Three [facility]. [facility] [address] [place] [address] documented as of this encounter Visit Diagnoses Not on filedocumented in this encounter Additional Health Concerns Assessment Noted Time PHQ-9 Depression Total Score: 22 020 3:46 PM STORAGE GARAGE ATTENDANT documented as of this encounter Care Teams Wire Stockkeeper Relationship Specialty Start Date End Date Keyonna Armstrong APNP [address] [place] [address] PCP - General NURSE PRACTITIONER 05/06/18 documented as of this encounter
--- OUTSIDE RECORDS SUMMARY | 2024-07-11 00:10 | XMS_ITS | Encounter Summary ---
Author Organization [facility] Address [address] [place] [address]. [place] [id number] [place], [place] [id number] Care Team Providers Care Benefits Consulting Analyst Name Role Phone Aracely Armstrong Primary Care Provider [phone] Reason for Visit * Reason Onset Date Comments Refill Request 01/29/2023 Encounter Details Date Type Department Care Team (Late st Contact Info) Description 01/29/2023 Telephone [facility] Medical Group Family & Internal Medicine [facility] [address] [place] [address] Aracely Armstrong APNP [address] [place] [address] Refill Request Social History Tobacco [...] CDT Gender Identity Female 07/17/2022 10:27 AM NOZZLE OPERATOR Sexual Orientation Straight 07/17/2022 10 :27 AM NOZZLE OPERATOR documented as of this encounter Progress Notes * Nenita Young MA - 01/29/2023 11:00 AM CDT Refill request received from Pharmacy Last visit with ARACELY ARMSTRONG in FAMILY PRACTICE was on: 07/20/2022 in [facility] No future appointments. [id number] [place], [place] - [address] [facility] [address] [facility] [address] [facility] [address] [facility] [address] [facility] [address] [facility] [id number] Current Outpatient Medications: amLODIPine (NORVASC) 5 MG [...] st Contact Info) Description 07/25/2024 10:00 AM NOZZLE OPERATOR Office Visit [facility] Medical Group Family & Internal Medicine [address] [address] Aracely Armstrong APNP [address] [place] [address] 07/31/2024 10:15 AM NOZZLE OPERATOR Office Visit [facility], [facility] [address] [place] [address] Pepe Mitchell MD [facility]. [facility] [address] [place] [address] documented as of this encounter Visit Diagnoses Diagnosis Primary insomnia Persistent disorder of initiating or maintaining sleep documented in this encounter Additional Health Concerns Assessment Noted Time PHQ-9 Depression Total Score: 22 020 3:46 PM NOZZLE OPERATOR documented as of this encounter Care Teams Benefits Consulting Analyst Relationship Specialty Start Date End Date Aracely Armstrong APNP [address] [place] [address] PCP - General NURSE PRACTITIONER 05/06/18 documented as of this encounter
--- OUTSIDE RECORDS SUMMARY | 2024-07-11 00:10 | XMS_ITS | Encounter Summary ---
Author Organization [facility] Address [address] [place] [address]. [place], [place] [address] [place] [address] Care Team Providers Care Dispenser Operator Name Role Phone Keyonna Armstrong Primary Care Provider [phone] Encounter Details Date Type Department Care Team [...] CDT Gender Identity Female 07/17/2022 10:27 AM SLAB PULLER Sexual Orientation Straight 07/17/2022 10 :27 AM SLAB PULLER documented as of this encounter Plan of Treatment Upcoming Encounters Date Type Department Care Team (Late st Contact Info) Description 07/25/2024 10:00 AM SLAB PULLER Office Visit [facility] Medical Group Family & Internal Medicine [address] [address] Keyonna Armstrong APNP [address] [place] [address] 07/31/2024 10:15 AM SLAB PULLER Office Visit [facility] THREE [facility], [facility] [address] [place] [phone] Pepe Mitchell MD Three [facility]. [facility] [address] [place] [address] documented as of this encounter Visit Diagnoses Not on filedocumented in this encounter Additional Health Concerns Assessment Noted Time PHQ-9 Depression Total Score: 22 020 3:46 PM SLAB PULLER documented as of this encounter Care Teams Dispenser Operator Relationship Specialty Start Date End Date Keyonna Armstrong APNP [address] [place] [address] PCP - General NURSE PRACTITIONER 05/06/18 documented as of this encounter
--- OUTSIDE RECORDS SUMMARY | 2024-07-11 00:10 | XMS_ITS | Encounter Summary ---
Author Organization [facility] Address [address] [place] [address]. [place], [place] [address] [place] [address] Care Team Providers Care Assembly Line Machine Operator Name Role Phone Keyonna Armstrong Primary Care Provider [phone] [phone] Encounter Details Date Type Department Care Team [...] CDT Gender Identity Female 07/17/2022 10:27 AM REHABILITATION SERVICES COORDINATOR Sexual Orientation Straight 07/17/2022 10 :27 AM REHABILITATION SERVICES COORDINATOR COVID-19 Exposure Response Date Recorded In the last 10 days, have yo u been in contact with someone who was confirmed or suspected to have Coronavirus/COVID-19? No / Unsure 09/29/2022 7:45 AM REHABILITATION SERVICES COORDINATOR documented as of this encounter Plan of Treatment Upcoming Encounters Date Type Department Care Team (Late st Contact Info) Description 07/25/2024 10:00 AM REHABILITATION SERVICES COORDINATOR Office Visit [facility] Medical Group Family & Internal Medicine - [place] [address] [place] [address] Keyonna Armstrong APNP [address] [place] [address] 07/31/2024 10:15 AM REHABILITATION SERVICES COORDINATOR Office Visit [facility] [address] [place] [address] Pepe Mitchell MD Three [facility]. [facility] [address] [place], [place] [phone] documented as of this encounter Visit Diagnoses Not on filedocumented in this encounter Additional Health Concerns Assessment Noted Time PHQ-9 Depression Total Score: 22 020 3:46 PM REHABILITATION SERVICES COORDINATOR documented as of this encounter Care Teams Assembly Line Machine Operator Relationship Specialty Start Date End Date Keyonna Armstrong APNP [address] [place] [address] PCP - General NURSE PRACTITIONER 05/06/18 documented as of this encounter
--- OUTSIDE RECORDS SUMMARY | 2024-07-11 00:10 | XMS_ITS | Encounter Summary ---
Author Organization [facility] Address [address] [place] [address]. [place] [id number] [place], [place] [id number] Care Team Providers Care Malt House Loader Name Role Phone Keyonna Armstrong Primary Care Provider [phone] Reason for Visit * Reason Onset Date Comments Downtime Visit 04/06/2023 Encounter Details Date Type Department Care Team (Late st Contact Info) Description 03/22/2023 8:00 AM CDT Office Visit [facility] Medical Group Family & Internal Medicine [place] [address] [place] [address] Keyonna Armstrong APNP [facility] [place], [place] [id number] Downtime Visit Social History Tobacco Use Types [...] CDT Gender Identity Female 07/17/2022 10:27 AM IRRIGATOR OVERHEAD Sexual Orientation Straight 07/17/2022 10 :27 AM IRRIGATOR OVERHEAD documented as of this encounter Last Filed [...] may be found under the media tab. GATOR OVERHEAD * Fartun Omalley RN - 03/22/2023 8:00 AM CDT Refer to scanned documents for care provided during this time. documented in this encounter Plan of Treatment Upcoming Encounters Date Type Department Care Team (Late st Contact Info) Description 07/25/2024 10:00 AM IRRIGATOR OVERHEAD Office Visit [facility] Medical Group Family & Internal Medicine - [place] [address] [place] [address] Keyonna Armstrong APNP [address] [place] [address] 07/31/2024 10:15 AM IRRIGATOR OVERHEAD Office Visit [facility] THREE [facility], [place] [address] [place] [address] Pepe Mitchell MD Three [facility]. [facility] [address] [place] [address] documented as of this encounter Procedures Procedure Name Priority Date/Time Associated Diagnosis Comments COLLECT.CAPILLARY (FNGR,HEEL,EAR) Routine 04/06/2023 9:54 AM CDT PCOS (polycystic ovarian syndrome) Impaired fasting glucose HEMOGLOBIN, GLYCOSYLATED Routine 03/22/2023 PCOS (polycystic ovarian syndrome) Impaired fasting glucose documented in this encounter Results * A1C (BACK OFFICE) (03/22/2023) HGB A1C 5.7 % [facility] 03/22/2023 us Keyonna [facility] Final Resul t Performing Organization Address City/State/[facility] [place] [address], documented in this encounter Visit Diagnoses Diagnosis PCOS (polycystic ovarian syndrome)- Primary Polycystic ovaries Impaired fasting glucose DOWNTIME VISIT documented in this encounter Additional Health Concerns Assessment Noted Time PHQ-9 Depression Total Score: 22 07/29/ 020 3:46 PM IRRIGATOR OVERHEAD documented as of this encounter Care Teams Malt House Loader Relationship Specialty Start Date End Date Keyonna Armstrong APNP [address] [place] [address] PCP - General NURSE PRACTITIONER 05/06/18 documented as of this encounter
--- OUTSIDE RECORDS SUMMARY | 2024-07-11 00:10 | XMS_ITS | Encounter Summary ---
Author Organization [facility] Address [address] [place] [address]. [place] [phone] [place] [address] Care Team Providers Care Dust Collector Operator Name Role Phone Keyonna Armstrong Primary Care Provider [phone] Reason for Visit * Reason Comments Sleep Problem Encounter Details Date Type Department Care Team (Late st Contact Info) Description 10/23/2022 1:20 PM CDT Telemedicine [facility] Medical Group Family & Internal Medicine [facility] [address] [place] [phone] Keyonna Armstrong APNP [address] [place], [place] [id number] Sleep Problem Social History Tobacco Use Types [...] CDT Gender Identity Female 07/17/2022 10:27 AM LINUX DEVELOPER Sexual Orientation Straight 07/17/2022 10 :27 AM LINUX DEVELOPER COVID-19 Exposure Response Date Recorded In the last 10 days, have yo u been in contact with someone who was confirmed or suspected to have Coronavirus/COVID-19? Unable to assess 10/23/2022 6:39 AM CDT documented as of this encounter Progress Notes * Keyonna Armstrong, APNP - 10/23/2022 1:20 PM CDT Images from the original note were not included. [facility] FAMILY AND INTERNAL MEDICINE OFFICE VISIT I introduced and identified myself, received verbal consent from the patient to proceed with this video visit and made the patient aware that the same confidentiality and information resources manager practices apply. The patient joined the video visit from Home. I completed the virtual visit from Home. [facility] with this visit Nurse: [...] 06/11/2018 ??? Depression 06/19/2012 ??? Diabetes mellitus ([facility]) ??? Esophageal reflux 04/22/2013 ??? Hypertension 06/19/2012 ??? Insomnia 04/02/2018 ??? Menorrhagia 04/02/2018 ??? Morbid obesity (CMS/HCC) 09/23/2013 ??? Obstructive sleep apnea 08/02/2012 ??? Sinus tachycardia 09/20/2017 Surgical History: Past Surgical History: Procedure Laterality Date ??? CHOLECYSTECTOMY ??? COLONOSCOPY N/A 01/12/2020 COLONOSCOPY SCREENING performed by Burt Payne MD at [facility] ??? GASTRIC BYPASS N/A 2004 Social History: [...] st Contact Info) Description 07/25/2024 10:00 AM LINUX DEVELOPER Office Visit [facility] Medical Group Family & Internal Medicine - [place] [address] [place] [address] Keyonna Armstrong APNP [address] [place] [address] 07/31/2024 10:15 AM LINUX DEVELOPER Office Visit [facility] THREE [facility], [facility] [address] [place] [address] Pepe Mitchell MD Three [facility]. [facility] [address] [place] [address] documented as of this encounter Visit Diagnoses Diagnosis Primary insomnia- Primary Persistent disorder of initiating or maintaining sleep documented in this encounter Additional Health Concerns Assessment Noted Time PHQ-9 Depression Total Score: 22 07/29/ 020 3:46 PM LINUX DEVELOPER documented as of this encounter Care Teams Dust Collector Operator Relationship Specialty Start Date End Date Keyonna Armstrong APNP [address] [place] [address] PCP - General NURSE PRACTITIONER 05/06/18 documented as of this encounter
--- OUTSIDE RECORDS SUMMARY | 2024-07-11 00:10 | XMS_ITS | Encounter Summary ---
Author Organization [facility] Address [address] [place] [address]. [place], [place] [phone] [place] [address] Care Team Providers Care Coal Deliverer Name Role Phone Keyonna Armstrong Primary Care Provider [phone] Encounter Details Date Type Department Care Team [...] CDT Gender Identity Female 07/17/2022 10:27 AM DRUM REEL CUTTER Sexual Orientation Straight 07/17/2022 10 :27 AM DRUM REEL CUTTER COVID-19 Exposure Response Date Recorded In the last 10 days, have yo u been in contact with someone who was confirmed or suspected to have Coronavirus/COVID-19? Unable to assess 10/23/2022 6:39 AM CDT documented as of this encounter Plan of Treatment Upcoming Encounters Date Type Department Care Team (Late st Contact Info) Description 07/25/2024 10:00 AM DRUM REEL CUTTER Office Visit [facility] Medical Group Family & Internal Medicine - [place] [address] [place] [address] Keyonna Armstrong APNP [address] [place] [address] 07/31/2024 10:15 AM DRUM REEL CUTTER Office Visit [facility] THREE [facility], [facility] [address] [place] [address] Pepe Mitchell MD Three [facility]. [facility] [address] [place] [address] documented as of this encounter Visit Diagnoses Not on filedocumented in this encounter Additional Health Concerns Assessment Noted Time PHQ-9 Depression Total Score: 22 020 3:46 PM DRUM REEL CUTTER documented as of this encounter Care Teams Coal Deliverer Relationship Specialty Start Date End Date Keyonna Armstrong APNP [address] [place] [address] PCP - General NURSE PRACTITIONER 05/06/18 documented as of this encounter
--- OUTSIDE RECORDS SUMMARY | 2024-07-11 00:10 | XMS_ITS | Encounter Summary ---
Author Organization [facility] Address [address] [place] [address]. [place] [id number] [place] [address] Care Team Providers Care Timekeeper Supervisor Name Role Phone Keyonna Armstrong Primary Care Provider [phone] Reason for Visit * Reason Comments Sleep Problem Encounter Details Date Type Department Care Team (Late st Contact Info) Description 12/11/2022 11:00 AM CDT Telemedicine [facility] Medical Group Family & Internal Medicine [facility] [address] [place] [phone] Keyonna Armstrong APNP [address] [place], [place] [phone] Sleep Problem Social History Tobacco Use Types [...] Gender Identity Female 07/17/2022 10:27 AM AUTO RENTAL CLERK Sexual Orientation Straight 07/17/2022 10 :27 AM AUTO RENTAL CLERK COVID-19 Exposure Response Date Recorded In the last 10 days, have yo u been in contact with someone who was confirmed or suspected to have Coronavirus/COVID-19? Unable to assess 12/11/2022 6:37 AM CDT documented as of this encounter Progress Notes * Keyonna Armstrong, YOBANI - 12/11/2022 11:00 AM CDT Images from the original note were not included. [facility] FAMILY AND INTERNAL MEDICINE OFFICE VISIT I introduced and identified myself, received verbal consent from the patient to proceed with this video visit and made the patient aware that the same confidentiality and information consultant practices apply. The patient joined the video [...] SCREENING performed by Burt Payne MD at [facility] GI GASTRIC BYPASS N/A 2004 [...] Contact Info) Description 07/25/2024 10:00 AM AUTO RENTAL CLERK Office Visit [facility] Medical Group Family & Internal Medicine - [address] [address] Keyonna Armstrong APNP [address] [place] [address] 07/31/2024 10:15 AM AUTO RENTAL CLERK Office Visit [facility] THREE [facility], [facility] [address] [place], [place] [address] Pepe Mitchell MD Three [facility]. [facility] [address] [place], [place] [phone] documented as of this encounter Visit Diagnoses Diagnosis Primary insomnia- Primary Persistent disorder of initiating or maintaining sleep documented in this encounter Additional Health Concerns Assessment Noted Time PHQ-9 Depression Total Score: 22 020 3:46 PM AUTO RENTAL CLERK documented as of this encounter Care Teams Timekeeper Supervisor Relationship Specialty Start Date End Date Keyonna Armstrong APNP [address] [place] [address] PCP - General NURSE PRACTITIONER 05/06/18 documented as of this encounter
--- OUTSIDE RECORDS SUMMARY | 2024-07-11 00:10 | XMS_ITS | Encounter Summary ---
Author Organization [facility] Address [address] [place] [address]. [place], [place] [address] [place] [address] Care Team Providers Care Video Conference Specialist Name Role Phone Keyonna Armstrong Primary Care Provider [phone] Reason for Referral * Consultation (Routine) - Closed Specialty Diagnoses / Procedures Referred By Lee saunders Referred To Contact FAMILY PRACTICE Diagnoses BMI 45.0-49.9, adult (CMS/HCC [facility]) Obesity Procedures OFFICE/OUTPT VISIT,NEW,LEVL III OFFICE/OUTPT VISIT,NEW,LEVL IV OFFICE/OUTPT VISIT,NEW,LEVL V OFFICE/OUTPT VISIT,EST,LEVL III OFFICE/OUTPT VISIT,EST,LEVL IV OFFICE/OUTPT VISIT,EST,LEVL V Keyonna Armstrong APNP [address] [place] [address] Phone: tel: fax: Mark Wheat MD Phone: tel: fax: Referral ID Status Reason Start Date Expiration Date V isits Requested Visits Authorized [id number] Closed Specialty Services 05/26/2022 03/21/2023 1 3 Scheduling Instructions Weight Management at [facility] Reason for Visit * Reason Onset Date Comments Referral 05/25/2022 Encounter Details Date Type Department Care Team (Late st Contact Info) Description 05/25/2022 Telephone [facility] Medical Group Family & Internal Medicine [place] [address] [place] [address] Keyonna Armstrong APNP [address] [place] [address] Referral Social History Tobacco Use Types Packs/Day [...] CDT Gender Identity Female 07/17/2022 10:27 AM FLAVORING MAKER Sexual Orientation Straight 07/17/2022 10 :27 AM FLAVORING MAKER documented as of this encounter Progress Notes * Nenita Young MA - 05/26/2022 3:23 PM CDT Referral placed * YOBANI Cruz - 05/26/2022 2:33 PM CDT Ok for referral * Keyla Stallings MA - 05/25/2022 2:38 PM CDT Endocrine referral not needed. This JOURNEYMAN WIREMAN called pt they said they need one for weight management referral at [facility]. DX code- obesity. This JOURNEYMAN WIREMAN messaged (doc halo) referral team to see what this would be under? This JOURNEYMAN WIREMAN tried internal medicine. OK for referral? BB 05/25/2022 * nIdy Kang - 05/25/2022 10:13 AM CDT Patient needing referral for endcorine dr. Mark Wheat MD Ph. [phone] Appt: not yet. documented in this encounter Plan of Treatment Upcoming Encounters Date Type Department Care Team (Late st Contact Info) Description 07/25/2024 10:00 AM FLAVORING MAKER Office Visit [facility] Medical Group Family & Internal Medicine [address] [address] Keyonna Armstrong APNP [address] [place] [address] 07/31/2024 10:15 AM FLAVORING MAKER Office Visit [facility] THREE [facility], [facility] [address] [place], [place] [address] Pepe Mitchell MD [facility]. [facility] [address] [place], [place] [address] Scheduled Referrals Name Type Priority Associated Diagnoses Orde r Schedule Ambulatory referral to Internal Medicine (OTHER) Referral Routine BMI 45.0-49.9, adult ([facility]) Obesity Ordered: 05/26/2022 documented as of this encounter Visit Diagnoses Diagnosis BMI 45.0-49.9, adult ([facility])- Primary Body Mass Index 45.0-49.9, adult Obesity Obesity, unspecified documented in this encounter Additional Health Concerns Assessment Noted Time PHQ-9 Depression Total Score: 22 020 3:46 PM FLAVORING MAKER documented as of this encounter Care Teams Video Conference Specialist Relationship Specialty Start Date End Date Keyonna Armstrong APNP [address] [place] [address] PCP - General NURSE PRACTITIONER 05/06/18 documented as of this encounter
--- OUTSIDE RECORDS SUMMARY | 2024-07-11 00:11 | XMS_ITS | Encounter Summary ---
Author Organization [facility] Address [address] [place] [address]. [place], [place] [address] [place] [address] Care Team Providers Care Ecommerce Merchandising Manager Name Role Phone Keyonna Armstrong Primary Care Provider [phone] Encounter Details Date Type Department Care Team [...] CDT Gender Identity Female 07/17/2022 10:27 AM BRILLIANDEER LOOPER Sexual Orientation Straight 07/17/2022 10 :27 AM BRILLIANDEER LOOPER documented as of this encounter Plan of Treatment Upcoming Encounters Date Type Department Care Team ( Contact Info) Description 07/25/2024 10:00 AM BRILLIANDEER LOOPER Office Visit [facility] Medical Group Family & Internal Medicine [address] [address] Keyonna Armstrong APNP [address] [place] [address] 07/31/2024 10:15 AM BRILLIANDEER LOOPER Office Visit [facility], [facility] [address] [place] [address] Pepe Mitchell MD Three [facility]. [facility] [address] [place] [address] documented as of this encounter Visit Diagnoses Not on filedocumented in this encounter Additional Health Concerns Assessment Noted Time PHQ-9 Depression Total Score: 22 020 3:46 PM BRILLIANDEER LOOPER documented as of this encounter Care Teams Ecommerce Merchandising Manager Relationship Specialty Start Date End Date Keyonna Armstrong APNP [address] [place] [address] PCP - General NURSE PRACTITIONER 05/06/18 documented as of this encounter
--- OUTSIDE RECORDS SUMMARY | 2024-07-11 00:11 | XMS_ITS | Encounter Summary ---
Author Organization [facility] Address [address] [place] [address]. [place] [phone] [place] [address] Care Team Providers Care Crime Scene Investigator Name Role Phone Keyonna Armstrong Primary Care Provider [phone] Reason for Visit * Reason Onset Date Comments Letter 04/10/2022 Encounter Details Date Type Department Care Team (Late st Contact Info) Description 04/10/2022 Telephone [facility] Medical Group Family & Internal Medicine [facility] [address] [place] [address] Keyonna Armstrong APNP [address] [place] [address] Letter Social History Tobacco Use [...] CDT Gender Identity Female 07/17/2022 10:27 AM OFFICE MACHINE MECHANIC Sexual Orientation Straight 07/17/2022 10 :27 AM OFFICE MACHINE MECHANIC documented as of this encounter Progress Notes * Keyla Stallings MA - 04/11/2022 2:52 PM CDT Letter drafted. Pt informed and will picker/puller letter. BB 04/11/2022 * YOBANI Cruz - [...] the [address]. Callback: [phone] documented in this encounter Plan of Treatment Upcoming Encounters Date Type Department Care Team (Late st Contact Info) Description 07/25/2024 10:00 AM OFFICE MACHINE MECHANIC Office Visit [facility] Medical Group Family & Internal Medicine - [place] [address] [place] [address] Keyonna Armstrong APNP [address] [place] [address] 07/31/2024 10:15 AM OFFICE MACHINE MECHANIC Office Visit [facility] THREE [facility] [place] [address] [place], [place] [phone] Pepe Mitchell MD Three [facility]. [place] [address] [place] [address] documented as of this encounter Visit Diagnoses Not on filedocumented in this encounter Additional Health Concerns Assessment Noted Time PHQ-9 Depression Total Score: 22 020 3:46 PM OFFICE MACHINE MECHANIC documented as of this encounter Care Teams Crime Scene Investigator Relationship Specialty Start Date End Date Keyonna Armstrong APNP [address] [place] [address] PCP - General NURSE PRACTITIONER 05/06/18 documented as of this encounter
--- OUTSIDE RECORDS SUMMARY | 2024-07-11 00:11 | XMS_ITS | Encounter Summary ---
Author Organization [facility] Address [address] [place] [address]. [place], [place] [phone] [place] [address] Care Team Providers Care Paper And Prints Restorer Name Role Phone Keyonna Armstrong Primary Care Provider [phone] [phone] Encounter Details Date Type Department Care Team [...] (Late Contact Info) Description 07/25/2024 10:00 AM TRUST MANAGER ASSISTANT Office Visit [facility] Medical Group Family & Internal Medicine - [place] [address] [place] [address] Keyonna Armstrong APNP [address] [place] [address] 07/31/2024 10:15 AM TRUST MANAGER ASSISTANT Office Visit [facility] THREE [facility], [facility] [address] [place] [address] Pepe Mitchell MD Three [facility]. [facility] [address] [place] [address] documented as of this encounter Visit Diagnoses Not on filedocumented in this encounter Additional Health Concerns Assessment Noted Time PHQ-9 Depression Total Score: 22 020 3:46 PM TRUST MANAGER ASSISTANT documented as of this encounter Care Teams Paper And Prints Restorer Relationship Specialty Start Date End Date Keyonna Armstrong APNP [address] [place] [address] PCP - General NURSE PRACTITIONER 05/06/18 documented as of this encounter
--- OUTSIDE RECORDS SUMMARY | 2024-07-11 00:11 | XMS_ITS | Encounter Summary ---
Author Organization [facility] Address [address] [place] [address]. [place], [place] [address] [place] [address] Care Team Providers Care C Wpf Developer Name Role Phone Keyonna Armstrong Primary Care Provider [phone] [phone] Reason for Visit * Reason Comments Procedure (SCAN) Encounter Details Date Type Department Care Team ([facility] Contact Info) Description 08/31/2021 Scan HEALTH INFO [...] CDT Gender Identity Female 07/17/2022 10:27 AM PREPARATION PLANT REPAIRER Sexual Orientation Straight 07/17/2022 10 :27 AM PREPARATION PLANT REPAIRER documented as of this encounter Plan of Treatment Upcoming Encounters Date Type Department Care Team ([facility] Contact Info) Description 07/25/2024 10:00 AM PREPARATION PLANT REPAIRER Office Visit [facility] Medical Group Family & Internal Medicine [address] [place] [address] Keyonna Armstrong APNP [address] [place] [address] 07/31/2024 10:15 AM PREPARATION PLANT REPAIRER Office Visit [facility] THREE [facility], [facility] [address] [place] [address] Pepe Mitchell MD Three [facility]. [facility] [address] [place], [place] [address] documented as of this encounter Procedures Procedure [...] Depression Total Score: 22 020 3:46 PM PREPARATION PLANT REPAIRER documented as of this encounter Care Teams C Wpf Developer Relationship Specialty Start Date End Date Keyonna Armstrong APNP [address] [place] [address] PCP - General NURSE PRACTITIONER 05/06/18 documented as of this encounter
--- OUTSIDE RECORDS SUMMARY | 2024-07-11 00:11 | XMS_ITS | Encounter Summary ---
Author Organization [facility] Address [facility] [place], [place] [address] [place] [address] Care Team Providers Care Literacy Specialist Name Role Phone Keyonna Armstrong Primary Care Provider [phone] Reason for Referral * Consultation (Routine) - Closed Specialty Diagnoses / Procedures Referred By Lee t Referred To Contact OBGYN Diagnoses Well woman exam Keyonna Armstrong APNP [address] [place] [address] Phone: tel: fax: Mariluz Campbell MD [address] [place] [address] Phone: tel: fax: Referral ID Status Reason Start Date Expiration Date V isits Requested Visits Authorized [id number] Closed Specialty Services 01/13/2022 07/12/2022 6 6 Reason for Visit * Reason Onset Date Comments Referral 01/06/2022 Encounter Details Date Type Department Care Team (Late st Contact Info) Description 01/06/2022 Telephone [facility] - [place] [address] [place] [address] Keyonna Armstrong APNP [address] [place] [address] Referral Social History Tobacco Use [...] CDT Gender Identity Female 07/17/2022 10:27 AM GYM ATTENDANT Sexual Orientation Straight 07/17/2022 10 :27 AM GYM ATTENDANT COVID-19 Exposure Response Date Recorded In the last 10 days, have yo u been in contact with someone who was confirmed or suspected to have Coronavirus/COVID-19? No / Unsure 12/20/2021 10:00 AM CDT documented as of this encounter Progress Notes * Nenita Young MA - 01/06/2022 10:49 AM CDT Referral placed 01/06/22 * YOBANI Cruz - 01/06/2022 10:47 AM CDT yes * Nenita Young MA - 01/06/2022 10:45 AM CDT Ok for referral? * Ne Mueller - 01/06/2022 10:41 AM CDT Pt would like a referral to see a metal furniture glazier documented in this encounter Plan of Treatment Upcoming Encounters Date Type Department Care Team (Late st Contact Info) Description 07/25/2024 10:00 AM GYM ATTENDANT [facility] - [place] [address] [place] [address] Keyonna Armstrong APNP [address] [place] [address] 07/31/2024 10:15 AM GYM ATTENDANT Office Visit [facility] THREE [facility], [email or web address] [address] [place], [place] [address] Pepe Mitchell MD Three [facility]. [facility] [address] [place] [address] Scheduled Referrals Name Type Priority Associated Diagnoses Orde r Schedule Ambulatory referral to Obstetrics/Gynecology (OTHER) Referral Routine Well woman exam Ordered: 01/06/2022 documented as of this encounter Visit Diagnoses Diagnosis Well woman exam- Primary Routine general medical examination at a health care facility documented in this encounter Additional Health Concerns Assessment Noted Time PHQ-9 Depression Total Score: 22 020 3:46 PM GYM ATTENDANT documented as of this encounter Care Teams Literacy Specialist Relationship Specialty Start Date End Date Keyonna Armstrong APNP Formerly named [facility] [place] [address] PCP - General NURSE PRACTITIONER 05/06/18 documented as of this encounter
--- OUTSIDE RECORDS SUMMARY | 2024-07-11 00:11 | XMS_ITS | Encounter Summary ---
Author Organization [facility] Address [address] [place] [address]. [place], [place] [address] [place] [address] Care Team Providers Care Technical Sales Representative Name Role Phone Keyonna Armstrong Primary Care Provider [phone] Encounter Details Date Type Department Care Team [...] CDT Gender Identity Female 07/17/2022 10:27 AM WEARING APPAREL SHAKER Sexual Orientation Straight 07/17/2022 10 :27 AM WEARING APPAREL SHAKER documented as of this encounter Plan of Treatment Upcoming Encounters Date Type Department Care Team ( Contact Info) Description 07/25/2024 10:00 AM WEARING APPAREL SHAKER Office Visit [facility] Family & Internal Medicine [address] [address] Keyonna Armstrong APNP [address] [place] [address] 07/31/2024 10:15 AM WEARING APPAREL SHAKER Office [facility], [facility] [address] [place] [address] Pepe Mitchell MD Three [facility]. [facility] [address] [place] [address] documented as of this encounter Visit Diagnoses Not on filedocumented in this encounter Additional Health Concerns Assessment Noted Time PHQ-9 Depression Total Score: 22 020 3:46 PM WEARING APPAREL SHAKER documented as of this encounter Care Teams Technical Sales Representative Relationship Specialty Start Date End Date Keyonna Armstrong APNP [address] [place] [address] PCP - General NURSE PRACTITIONER 05/06/18 documented as of this encounter
--- OUTSIDE RECORDS SUMMARY | 2024-07-11 00:11 | XMS_ITS | Encounter Summary ---
Author Organization [facility] Address [address] [place] [address]. [place], [place] [address] [place] [address] Care Team Providers Care Help Desk Consultant Name Role Phone Keyonna Armstrong Primary Care Provider [phone] Encounter Details Date Type Department Care Team [...] CDT Gender Identity Female 07/17/2022 10:27 AM ELEVATOR STARTER Sexual Orientation Straight 07/17/2022 10 :27 AM ELEVATOR STARTER documented as of this encounter Plan of Treatment Upcoming Encounters Date Type Department Care Team ( st Contact Info) Description 07/25/2024 10:00 AM ELEVATOR STARTER Office Visit [facility] Family & Internal Medicine [address] [address] Keyonna Armstrong APNP [address] [place] [address] 07/31/2024 10:15 AM ELEVATOR STARTER Office [facility] THREE [facility], [facility] [address] [place] [address] Pepe Mitchell MD Three [facility]. [facility] [address] [place] [address] documented as of this encounter Visit Diagnoses Not on filedocumented in this encounter Additional Health Concerns Assessment Noted Time PHQ-9 Depression Total Score: 22 020 3:46 PM ELEVATOR STARTER documented as of this encounter Care Teams Help Desk Consultant Relationship Specialty Start Date End Date Keyonna Armstrong APNP [address] [place] [address] PCP - General NURSE PRACTITIONER 05/06/18 documented as of this encounter
--- OUTSIDE RECORDS SUMMARY | 2024-07-11 00:11 | XMS_ITS | Encounter Summary ---
Author Organization [facility] Address [address] [place] [address]. [place] [id number] [place], [place] [id number] Care Team Providers Care Street Sweeper Operator Name Role Phone Keyonna Armstrong Primary Care Provider [phone] Reason for Visit * Reason Onset Date Comments Pre-visit Gap Closure 12/12/2021 Encounter Details Date Type Department Care Team (Late st Contact Info) Description 12/12/2021 Telephone [facility] Family & Internal Medicine [facility] [address] [place] [phone] Keyonna Armstrong APNP [address] [place] [address] Pre-visit Gap Closure Social History [...] CDT Gender Identity Female 07/17/2022 10:27 AM MARBLE MACHINE TENDER Sexual Orientation Straight 07/17/2022 10 :27 AM MARBLE MACHINE TENDER documented as of this encounter Progress Notes * Twyla Mcgill CMA - 12/12/2021 3:51 PM CDT Contacted patient for pre-visit gap closure. 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 My direct extension is [phone]. You can also reach me at: [phone] ([place]) OR [phone] ([place]) documented in this encounter Plan of Treatment Upcoming Encounters Date Type Department Care Team (Late st Contact Info) Description 07/25/2024 10:00 AM MARBLE MACHINE TENDER Office Visit [facility] Family & Internal Medicine [facility] [address] [place] [address] Keyonna Armstrong APNP [address] [place] [address] 07/31/2024 10:15 AM MARBLE MACHINE TENDER Office Visit [facility] THREE [facility], [facility] [address] [place], [place] [address] Pepe Mitchell MD Three [facility]. [facility] [address] [place], [place] [address] documented as of this encounter Visit Diagnoses Not on filedocumented in this encounter Additional Health Concerns Assessment Noted Time PHQ-9 Depression Total Score: 22 020 3:46 PM MARBLE MACHINE TENDER documented as of this encounter Care Teams Street Sweeper Operator Relationship Specialty Start Date End Date Keyonna Armstrong APNP [address] [place] [address] PCP - General NURSE PRACTITIONER 05/06/18 documented as of this encounter
--- OUTSIDE RECORDS SUMMARY | 2024-07-11 00:11 | XMS_ITS | Encounter Summary ---
Author Organization [facility] Address [address] [place] [address]. [place] [id number] [place] [address] Care Team Providers Care Pastry Cook Apprentice Name Role Phone Keyonna Armstrong Primary Care Provider [phone] Reason for Visit * Reason Onset Date Comments Other 01/06/2022 Encounter Details Date Type Department Care Team (Late st Contact Info) Description 01/06/2022 Telephone [facility] Family & Internal Medicine [facility] [address] [place] [address] Keyonna Armstrong APNP [address] [place] [address] Other Social History Tobacco Use [...] Gender Identity Female 07/17/2022 10:27 AM SALES SOLUTIONS ASSOCIATE Sexual Orientation Straight 07/17/2022 10 :27 AM SALES SOLUTIONS ASSOCIATE COVID-19 Exposure Response Date Recorded In the last 10 days, have yo u been in contact with someone who was confirmed or suspected to have Coronavirus/COVID-19? No / Unsure 12/20/2021 10:00 AM CDT documented as of this encounter Plan of Treatment Upcoming Encounters Date Type Department Care Team (Late st Contact Info) Description 07/25/2024 10:00 AM SALES SOLUTIONS ASSOCIATE Office Visit [facility] Family & Internal Medicine [facility] [address] [place] [address] Keyonna Armstrong APNP [address] [place] [address] 07/31/2024 10:15 AM SALES SOLUTIONS ASSOCIATE Office [facility] THREE [facility], [facility] [address] [place] [address] Pepe Mitchell MD Three [facility]. [facility] [address] [place] [address] documented as of this encounter Visit Diagnoses Not on filedocumented in this encounter Additional Health Concerns Assessment Noted Time PHQ-9 Depression Total Score: 22 020 3:46 PM SALES SOLUTIONS ASSOCIATE documented as of this encounter Care Teams Pastry Cook Apprentice Relationship Specialty Start Date End Date Keyonna Armstrong APNP [facility] [place] [address] PCP - General NURSE PRACTITIONER 05/06/18 documented as of this encounter
--- OUTSIDE RECORDS SUMMARY | 2024-07-11 00:11 | XMS_ITS | Encounter Summary ---
Author Organization [facility] Address [facility] [place], [place] [address] [place] [address] Care Team Providers Care Economic Development Director Name Role Phone Keyonna Armstrong Primary Care Provider [phone] Reason for Referral * Consultation (Routine) - Closed Specialty Diagnoses / Procedures Referred By Lee saunders Referred To Contact DERMATOLOGY Diagnoses Change in facial mole Keyonna Armstrong APNP [address] [place] [address] Phone: tel: fax: [facility] [address] [place] [phone] Phone: tel: fax: Referral ID Status Reason Start Date Expiration Date V isits Requested Visits Authorized [id number] Closed Specialty Services 12/28/2021 12/28/2022 12 12 Reason for Visit * Reason Comments Mole Encounter Details Date Type Department Care Team (Late st Contact Info) Description 12/20/2021 10:00 AM CDT Office Visit [facility] Family & Internal Medicine - [place] [address] [place] [phone] Keyonna Armstrong APNP [address] [place], [place] [phone] [place] Social History Tobacco Use Types Packs/Day [...] CDT Gender Identity Female 07/17/2022 10:27 AM APARTMENT HOTEL MANAGER Sexual Orientation Straight 07/17/2022 10 :27 AM APARTMENT HOTEL MANAGER COVID-19 Exposure Response Date Recorded In [...] from the original note were not included. [facility] FAMILY AND INTERNAL MEDICINE OFFICE VISIT [...] it removed. Requesting a referral to a weapons officer. She did have a pap smear with her established STOCK DRIER TENDER---but states she has left the practice. Due [...] by Burt Payne MD at [facility] ??? GASTRIC BYPASS N/A 2004 Social [...] cm, raised, waxy brown lesion to right sabianism Neurological: Mental Status: She is alert and [...] Recurrent major depressive disorder, in partial remission ([facility]/HCC) TSH W/REFLEX 2. Obstructive sleep apnea Chronic [...] st Contact Info) Description 07/25/2024 10:00 AM APARTMENT HOTEL MANAGER Office Visit [facility] Medical Group Family & Internal Medicine - [place] [address] [place] [address] Keyonna Armstrong APNP [address] [place] [address] 07/31/2024 10:15 AM APARTMENT HOTEL MANAGER Office Visit [facility] THREE [facility], [facility] [address] [place] [address] Pepe Mitchell MD Three [facility]. [facility] [address] [place], [place] [address] Scheduled Referrals Name Type Priority Associated Diagnoses Orde r Schedule Ambulatory referral to Dermatology Referral Routine Change in facial mole Ordered: 12/20/2021 documented as of this encounter Visit Diagnoses Diagnosis Recurrent major depressive disorder, in partial remission ([facility])- Primary Obstructive sleep apnea Obstructive sleep apnea (adult) (pediatric) Primary insomnia Persistent disorder of initiating or maintaining sleep Gastroesophageal reflux disease, unspecified whether esophagitis present Adenoma of left adrenal gland Benign neoplasm of adrenal gland Anxiety Anxiety state, unspecified BMI 45.0-49.9, adult ([facility]) Body Mass Index 45.0-49.9, adult Change in facial mole Benign neoplasm of skin of other and unspecified parts of face Dyslipidemia Other and unspecified hyperlipidemia Primary hypertension Unspecified essential hypertension documented in this encounter Additional Health Concerns Assessment Noted Time PHQ-9 Depression Total Score: 22 020 3:46 PM APARTMENT HOTEL MANAGER documented as of this encounter Care Teams Economic Development Director Relationship Specialty Start Date End Date Keyonna Armstrong APNP [address] [place] [address] PCP - General NURSE PRACTITIONER 05/06/18 documented as of this encounter
--- OUTSIDE RECORDS SUMMARY | 2024-07-11 00:12 | XMS_ITS | Encounter Summary ---
Author Organization [facility] Address [address] [place] [address]. [place], [place] [address] [place] [address] Care Team Providers Care Shochet Name Role Phone Keyonna Armstrong Primary Care Provider [phone] Encounter Details Date Type Department Care Team [...] CDT Gender Identity Female 07/17/2022 10:27 AM CONTRIBUTION SOLICITOR Sexual Orientation Straight 07/17/2022 10 :27 AM CONTRIBUTION SOLICITOR COVID-19 Exposure Response Date Recorded In the last 10 days, have yo u been in contact with someone who was confirmed or suspected to have Coronavirus/COVID-19? No / Unsure 07/20/2022 12:13 PM CONTRIBUTION SOLICITOR documented as of this encounter Plan of Treatment Upcoming Encounters Date Type Department Care Team (Late st Contact Info) Description 07/25/2024 10:00 AM CONTRIBUTION SOLICITOR Office Visit [facility] Family & Internal Medicine - [place] [address] [place] [address] Keyonna Armstrong APNP [address] [place] [address] 07/31/2024 10:15 AM CONTRIBUTION SOLICITOR Office Visit [facility], [facility] [address] [place] [address] Pepe Mitchell MD Three [facility]. [facility] [address] [place], [place] [phone] documented as of this encounter Visit Diagnoses Not on filedocumented in this encounter Additional Health Concerns Assessment Noted Time PHQ-9 Depression Total Score: 22 020 3:46 PM CONTRIBUTION SOLICITOR documented as of this encounter Care Teams [place]ochet Relationship Specialty Start Date End Date Keyonna Armstrong APNP [address] [place] [address] PCP - General NURSE PRACTITIONER 05/06/18 documented as of this encounter
--- OUTSIDE RECORDS SUMMARY | 2024-07-11 00:12 | XMS_ITS | Encounter Summary ---
Author Organization [facility] Address [address] [place] [address]. [place], [place] [address] [place] [address] Care Team Providers Care Director Oracle Name Role Phone Keyonna Armstrong Primary Care Provider [phone] Encounter Details Date Type Department Care Team [...] CDT Gender Identity Female 07/17/2022 10:27 AM ADMINISTRATIVE SPECIALIST Sexual Orientation Straight 07/17/2022 10 :27 AM ADMINISTRATIVE SPECIALIST COVID-19 Exposure Response Date Recorded In the last month, have you been in contact with someone who was confirmed or suspected to have Coronavirus / COVID-19? No / Unsure 05/13/2021 12:47 PM CDT documented as of this encounter Plan of Treatment Upcoming Encounters Date Type Department Care Team (Late st Contact Info) Description 07/25/2024 10:00 AM ADMINISTRATIVE SPECIALIST Office Visit [facility] Group Family & Internal Medicine - [place] [address] [place] [address] Keyonna Armstrong APNP [address] [place] [address] 07/31/2024 10:15 AM ADMINISTRATIVE SPECIALIST Office [facility] THREE [facility], [facility] [address] [place] [address] Pepe Mitchell MD Three [facility]. [facility] [address] [place], [place] [phone] documented as of this encounter Visit Diagnoses Not on filedocumented in this encounter Additional Health Concerns Assessment Noted Time PHQ-9 Depression Total Score: 22 020 3:46 PM ADMINISTRATIVE SPECIALIST documented as of this encounter Care Teams Director Oracle Relationship Specialty Start Date End Date Keyonna Armstrong APNP [address] [place] [address] PCP - General NURSE PRACTITIONER 05/06/18 documented as of this encounter
--- OUTSIDE RECORDS SUMMARY | 2024-07-11 00:12 | XMS_ITS | Encounter Summary ---
Author Organization [facility] Address [address] [place] [address]. [place], [place] [address] [place] [address] Care Team Providers Care Seconds Handler Name Role Phone Keyonna Armstrong Primary Care Provider [phone] Encounter Details Date Type Department Care Team [...] Gender Identity Female 07/17/2022 10:27 AM SALES DEVELOPMENT CONSULTANT Sexual Orientation Straight 07/17/2022 10 :27 AM SALES DEVELOPMENT CONSULTANT COVID-19 Exposure Response Date Recorded In the last month, have you been in contact with someone who was confirmed or suspected to have Coronavirus / COVID-19? No / Unsure 05/13/2021 12:47 PM CDT documented as of this encounter Plan of Treatment Upcoming Encounters Date Type Department Care Team (Late st Contact Info) Description 07/25/2024 10:00 AM SALES DEVELOPMENT CONSULTANT Office Visit [facility] Family & Internal Medicine - [place] [address] [place] [address] Keyonna Armstrong APNP [address] [place] [address] 07/31/2024 10:15 AM SALES DEVELOPMENT CONSULTANT Office Visit [facility] THREE [facility], [facility] [address] [place] [address] Pepe Mitchell MD Three [facility]. [facility] [address] [place], [place] [id number] documented as of this encounter Visit Diagnoses Not on filedocumented in this encounter Additional Health Concerns Assessment Noted Time PHQ-9 Depression Total Score: 22 020 3:46 PM SALES DEVELOPMENT CONSULTANT documented as of this encounter Care Teams Seconds Handler Relationship Specialty Start Date End Date Keyonna Armstrong APNP [address] [place] [address] PCP - General NURSE PRACTITIONER 05/06/18 documented as of this encounter
--- OUTSIDE RECORDS SUMMARY | 2024-07-11 00:12 | XMS_ITS | Encounter Summary ---
Author Organization [facility] Address [address] [place] [address]. [place], [place] [address] [place] [address] Care Team Providers Care Furnace Utility Operator Name Role Phone Keyonna Armstrong Primary Care Provider [phone] Reason for Referral * Consultation (Urgent) - Closed Specialty Diagnoses / Procedures Referred By Lee saunders Referred To Contact ORTHOPAEDIC SURGERY Diagnoses Right shoulder pain Neck pain Keyonna Armstrong APNP [address] [place] [address] Phone: tel: fax: Pepe Zepeda MD [address] [place] [address] Phone: tel: fax: Referral ID Status Reason Start Date Expiration Date V isits Requested Visits Authorized [id number] Closed Specialty Services 05/23/2021 12/19/2021 7 7 RATORY MONITOR Reason for Visit * Reason Onset Date Comments Referral 05/30/2021 Encounter Details Date Type Department Care Team (Late st Contact Info) Description 05/30/2021 Telephone [facility] Medical Group Family & Internal Medicine - [place] [address] [place] [address] Keyonna Armstrong APNP [address] [place] [address] Referral Social History Tobacco Use [...] CDT Gender Identity Female 07/17/2022 10:27 AM LABORATORY MONITOR Sexual Orientation Straight 07/17/2022 10 :27 AM LABORATORY MONITOR COVID-19 Exposure Response Date Recorded In the last month, have you been in contact with someone who was confirmed or suspected to have Coronavirus / COVID-19? No / Unsure 05/13/2021 12:47 PM CDT documented as of this encounter Progress Notes * Nenita Young MA - 05/30/2021 8:19 AM CST Patient needs a referral for right shoulder . RATORY MONITOR documented in this encounter Plan of Treatment Upcoming Encounters Date Type Department Care Team (Late st Contact Info) Description 07/25/2024 10:00 AM LABORATORY MONITOR Office Visit [facility] Medical Group Family & Internal Medicine - [place] [address] [place] [address] Keyonna Armstrong APNP [address] [place] [address] 07/31/2024 10:15 AM LABORATORY MONITOR Office [facility], [place] [address] [place] [address] Pepe Mitchell MD [facility]. [place] [address] [place] [address] Scheduled Referrals Name Type Priority Associated Diagnoses Orde r Schedule Ambulatory referral to Orthopedics (OTHER) Referral Routine Right shoulder pain Neck pain Ordered: 05/30/2021 documented as of this encounter Visit Diagnoses Diagnosis Right shoulder pain- Primary Pain in joint, shoulder region Neck pain Cervicalgia documented in this encounter Additional Health Concerns Assessment Noted Time PHQ-9 Depression Total Score: 22 020 3:46 PM LABORATORY MONITOR documented as of this encounter Care Teams Furnace Utility Operator Relationship Specialty Start Date End Date Keyonna Armstrong APNP [address] [place] [address] PCP - General NURSE PRACTITIONER 05/06/18 documented as of this encounter
--- OUTSIDE RECORDS SUMMARY | 2024-07-11 00:12 | XMS_ITS | Encounter Summary ---
Author Organization [facility] Address [address] [place] [address]. [place] [id number] [place] [address] Care Team Providers Care Orthotist/Prosthetist Name Role Phone Keyonna Armstrong Primary Care Provider [phone] Reason for Visit * Reason Onset Date Comments Information 08/18/2021 Encounter Details Date Type Department Care Team (Late st Contact Info) Description 08/18/2021 Telephone [facility] Medical [facility] Family & Internal Medicine [facility] [address] [place] [address] Keyonna Armstrong APNP [address] [place] [address] Information Social History Tobacco Use [...] CDT Gender Identity Female 07/17/2022 10:27 AM HVAC/R INSTRUCTOR Sexual Orientation Straight 07/17/2022 10 :27 AM HVAC/R INSTRUCTOR documented as of this encounter Progress Notes * Keyla Stallings MA - 08/18/2021 2:24 PM CST Pt's parking placard is ready to pick up man. A copy was made. One is scanning. The other copy is up front for pt.she will pick up man tomorrow 08/19/2021. Pt was contacted. BB 08/18/2021 /R INSTRUCTOR documented in this encounter Plan of Treatment Upcoming Encounters Date Type Department Care Team (Late st Contact Info) Description 07/25/2024 10:00 AM HVAC/R INSTRUCTOR Office Visit [facility] Medical Group Family & Internal Medicine [place] [address] [place] [address] Keyonna Armstrong APNP [address] [place] [address] 07/31/2024 10:15 AM HVAC/R INSTRUCTOR Office Visit [facility] THREE [facility], [facility] [address] [place] [address] Pepe Mitchell MD Three [facility]. [facility] [address] [place] [address] documented as of this encounter Visit Diagnoses Not on filedocumented in this encounter Additional Health Concerns Assessment Noted Time PHQ-9 Depression Total Score: 22 020 3:46 PM HVAC/R INSTRUCTOR documented as of this encounter Care Teams Orthotist/Prosthetist Relationship Specialty Start Date End Date Keyonna Armstrong APNP [address] [place] [address] PCP - General NURSE PRACTITIONER 05/06/18 documented as of this encounter
--- OUTSIDE RECORDS SUMMARY | 2024-07-11 00:12 | XMS_ITS | Encounter Summary ---
Author Organization [facility] Address [address] [place] [address]. [place], [place] [address] [place] [address] Care Team Providers Care Airset Caster Name Role Phone Keyonna Armstrong Primary Care Provider [phone] Reason for Visit * Reason Comments Lab [...] Gender Identity Female 07/17/2022 10:27 AM MINING SUPPORT WORKER Sexual Orientation Straight 07/17/2022 10 :27 AM MINING SUPPORT WORKER COVID-19 Exposure Response Date Recorded In the last 10 days, have yo u been in contact with someone who was confirmed or suspected to have Coronavirus/COVID-19? No / Unsure 07/20/2022 12:13 PM MINING SUPPORT WORKER documented as of this encounter Plan of Treatment Upcoming Encounters Date Type Department Care Team (Late st Contact Info) Description 07/25/2024 10:00 AM MINING SUPPORT WORKER Office Visit [facility] Medical Group Family & Internal Medicine - [place] [address] [place] [address] Keyonna Armstrong APNP [address] [place] [address] 07/31/2024 10:15 AM MINING SUPPORT WORKER Office Visit [facility] THREE [facility], [facility] [address] [place], [place] [address] Pepe Mitchell MD Three [facility]. [facility] [address] [place], [place] [phone] documented as of this encounter Procedures Procedure Name Priority Date/Time Associated Diagnosis Comments OUTSIDE LAB (SCAN ORDER) Routine 08/23/2021 documented in this encounter Results * OUTSIDE LAB (SCAN) (08/23/2021) HGB A1C 5.1 % [facility] ONBASE 08/23/2021 us Doc Med Group Scanned SCANNING Final Resu lt [facility] ON[facility] documented in this encounter Visit Diagnoses Not on filedocumented in this encounter Additional Health Concerns Assessment Noted Time PHQ-9 Depression Total Score: 22 020 3:46 PM MINING SUPPORT WORKER documented as of this encounter Care Teams Airset Caster Relationship Specialty Start Date End Date Keyonna Armstrong APNP [address] [place] [address] PCP - General NURSE PRACTITIONER 05/06/18 documented as of this encounter
--- OUTSIDE RECORDS SUMMARY | 2024-07-11 00:12 | XMS_ITS | Encounter Summary ---
Author Organization [facility] Address [facility] [place], [place] [address] [place] [address] Care Team Providers Care Supportability Engineer Name Role Phone Keyonna Armstrong Primary Care Provider [phone] Reason for Referral * Consultation (Routine) - Closed Specialty Diagnoses / Procedures Referred By Contac t Referred To Contact HEMATOLOGY/ONCOLOGY Diagnoses Abnormal CBC Keyonna Armstrong APNP [address] [place] [address] Phone: tel: fax: Brendan Lopez MD [address] [facility] [address] [place] [address] Phone: tel: fax: Referral ID Status Reason Start Date Expiration Date V isits Requested Visits Authorized [id number] Closed Specialty Services 06/26/2021 06/26/2022 1 1 COLLECTOR Reason for Visit * Reason Onset Date Comments Results 05/24/2021 Encounter Details Date Type Department Care Team (Late st Contact Info) Description 05/24/2021 Telephone [facility] Medical Group Family & Internal Medicine - [place] [address] [place] [address] Keyonna Armstrong APNP [address] [place] [address] Results Social History Tobacco Use [...] CDT Gender Identity Female 07/17/2022 10:27 AM CITY COLLECTOR Sexual Orientation Straight 07/17/2022 10 :27 AM CITY COLLECTOR COVID-19 Exposure Response Date Recorded In the last month, have you been in contact with someone who was confirmed or suspected to have Coronavirus / COVID-19? No / Unsure 05/13/2021 12:47 PM CDT documented as of this encounter Progress Notes * Nenita Young MA - 05/30/2021 8:17 AM CST Patient notified and v/u . Referral sent COLLECTOR * Nenita Young MA - 05/30/2021 8:09 AM CST Lmtc, referral pended 05/30/2021 COLLECTOR * YOBANI Cruz - 05/29/2021 7:39 PM CST Let's refer pt to hematology for consistently abnormal CBC COLLECTOR * Nenita Young MA - 05/26/2021 2:53 PM CDT Patient has never seen personal driver * Nenita Young MA - 05/25/2021 3:05 PM CDT LMTC 05/25/21 * Rose Young MA - 05/24/2021 4:10 PM CDT LMTRC * Lupe Dorado - 05/24/2021 2:54 PM CDT ----- Message from YOBANI Cruz sent at 05/16/2021 1:40 PM CDT ----- WBC improved but lymphocytes worse. Has she seen a personal driver in the past for this as I do not think it is a new issue? documented in this encounter Plan of Treatment Upcoming Encounters Date Type Department Care Team (Late st Contact Info) Description 07/25/2024 10:00 AM CITY COLLECTOR Office Visit [facility] Medical Group Family & Internal Medicine - [place] [address] [place] [address] Keyonna Armstrong APNP [address] [place] [address] 07/31/2024 10:15 AM CITY COLLECTOR Office Visit [facility] THREE [facility], [facility] [address] [place], [place] [phone] Pepe Mitchell MD Three [facility]. [facility] [address] [place] [address] Scheduled Referrals Name Type Priority Associated Diagnoses Orde r Schedule Ambulatory referral to Hematology Referral Routine Abnormal CBC Ordered: 05/30/2021 documented as of this encounter Visit Diagnoses Diagnosis Abnormal CBC- Primary Other abnormal blood chemistry documented in this encounter Additional Health Concerns Assessment Noted Time PHQ-9 Depression Total Score: 22 020 3:46 PM CITY COLLECTOR documented as of this encounter Care Teams Supportability Engineer Relationship Specialty Start Date End Date Keyonna Armstrong APNP [address] [place] [address] PCP - General NURSE PRACTITIONER 05/06/18 documented as of this encounter
--- OUTSIDE RECORDS SUMMARY | 2024-07-11 00:12 | XMS_ITS | Encounter Summary ---
Author Organization [facility] Address [address] [place] [address]. [place], [place] [address] [place] [address] Care Team Providers Care Transport Technician Name Role Phone Keyonna Armstrong Primary Care Provider [phone] Encounter Details Date Type Department Care Team [...] CDT Gender Identity Female 07/17/2022 10:27 AM ATTENDING ANESTHESIOLOGIST Sexual Orientation Straight 07/17/2022 10 :27 AM ATTENDING ANESTHESIOLOGIST COVID-19 Exposure Response Date Recorded In the last month, have you been in contact with someone who was confirmed or suspected to have Coronavirus / COVID-19? No / Unsure 05/13/2021 12:47 PM CDT documented as of this encounter Plan of Treatment Upcoming Encounters Date Type Department Care Team (Late st Contact Info) Description 07/25/2024 10:00 AM ATTENDING ANESTHESIOLOGIST Office Visit [facility] Medical Group Family & Internal Medicine - [facility] [address] [place] [address] Keyonna Armstrong APNP [address] [place] [address] 07/31/2024 10:15 AM ATTENDING ANESTHESIOLOGIST Office Visit [facility] THREE [facility], [facility] [address] [place] [address] Pepe Mitchell MD Three [facility]. [facility] [address] [place] [address] documented as of this encounter Visit Diagnoses Not on filedocumented in this encounter Additional Health Concerns Assessment Noted Time PHQ-9 Depression Total Score: 22 020 3:46 PM ATTENDING ANESTHESIOLOGIST documented as of this encounter Care Teams Transport Technician Relationship Specialty Start Date End Date Keyonna Armstrong APNP [address] [place] [address] PCP - General NURSE PRACTITIONER 05/06/18 documented as of this encounter
--- OUTSIDE RECORDS SUMMARY | 2024-07-11 00:12 | XMS_ITS | Encounter Summary ---
Author Organization [facility] Address [address] [place] [address]. [place], [place] [address] [place] [address] Care Team Providers Care Clipper Automatic Name Role Phone Keyonna Armstrong Primary Care Provider [phone] Encounter Details Date Type Department Care Team [...] Gender Identity Female 07/17/2022 10:27 AM LOAN TELLER Sexual Orientation Straight 07/17/2022 10 :27 AM LOAN TELLER COVID-19 Exposure Response Date Recorded In the last month, have you been in contact with someone who was confirmed or suspected to have Coronavirus / COVID-19? No / Unsure 05/13/2021 12:47 PM CDT documented as of this encounter Plan of Treatment Upcoming Encounters Date Type Department Care Team (Late st Contact Info) Description 07/25/2024 10:00 AM LOAN TELLER Office Visit [facility] Medical Group Family & Internal Medicine - [place] [address] [place] [address] Keyonna Armstrong APNP [address] [place] [address] 07/31/2024 10:15 AM LOAN TELLER Office Visit [facility] THREE [facility], [facility] [address] [place] [address] Pepe Mitchell MD Three [facility]. [facility] [address] [place], [place] [phone] documented as of this encounter Visit Diagnoses Not on filedocumented in this encounter Additional Health Concerns Assessment Noted Time PHQ-9 Depression Total Score: 22 020 3:46 PM LOAN TELLER documented as of this encounter Care Teams Clipper Automatic Relationship Specialty Start Date End Date Keyonna Armstrong APNP [address] [place] [address] PCP - General NURSE PRACTITIONER 05/06/18 documented as of this encounter
--- OUTSIDE RECORDS SUMMARY | 2024-07-11 00:13 | XMS_ITS | Encounter Summary ---
Author Organization [facility] Address [address] [place] [address]. [place] [id number] [place] [address] Care Team Providers Care Adapted Physical Education Teacher Name Role Phone Keyonna Armstrong Primary Care Provider [phone] Reason for Visit * Reason Onset Date Comments Lab Results 10/22/2020 Encounter Details Date Type Department Care Team (Late st Contact Info) Description 10/22/2020 Telephone [facility] Medical Group Family & Internal Medicine [facility] [address] [place] [address] Keyonna Armstrong APNP [address] [place] [address] Lab Results Social History Tobacco [...] CDT Gender Identity Female 07/17/2022 10:27 AM LICENSED PSYCHIATRIC TECHNICIAN Sexual Orientation Straight 07/17/2022 10 :27 AM LICENSED PSYCHIATRIC TECHNICIAN documented as of this encounter Progress Notes * Keyla Stallings MA - 11/02/2020 12:59 PM CDT Pt v.u to get labs CBC done. Labs sent to [facility]. BB 11/02/20 * Keyla Stallings MA - [...] stated she has never been to a flex o writer operator. Patient did state she has been having [...] has ran high--has she ever seen a flex o writer operator in the past? documented in this encounter Plan of Treatment Upcoming Encounters Date Type Department Care Team (Late st Contact Info) Description 07/25/2024 10:00 AM LICENSED PSYCHIATRIC TECHNICIAN Office Visit [facility] Medical Group Family & Internal Medicine - [place] [address] [place] [address] Keyonna Armstrong APNP [address] [place] [address] 07/31/2024 10:15 AM LICENSED PSYCHIATRIC TECHNICIAN Office Visit [facility], [address] [address] Pepe Mitchell MD [facility] [address] [place] [address] documented as of this encounter Visit Diagnoses Diagnosis Abnormal CBC- Primary Other abnormal blood chemistry documented in this encounter Additional Health Concerns Assessment Noted Time PHQ-9 Depression Total Score: 22 020 3:46 PM LICENSED PSYCHIATRIC TECHNICIAN documented as of this encounter Care Teams Adapted Physical Education Teacher Relationship Specialty Start Date End Date Keyonna Armstrong APNP [address] [place] [address] PCP - General NURSE PRACTITIONER 05/06/18 documented as of this encounter
--- OUTSIDE RECORDS SUMMARY | 2024-07-11 00:13 | XMS_ITS | Encounter Summary ---
Author Organization [facility] Address [address] [place] [address]. [place] [address] [place] [address] Care Team Providers Care Head Sulfide Operator Name Role Phone Keyonna Armstrong Primary Care Provider [phone] Reason for Visit * Auth/Cert Specialty Diagnoses / Procedures Referred By Lee t Referred To Contact Diagnoses SCREENING Procedures COLONOSCOPY SCREENING Referral ID Status Reason Start Date Expiration Date Visits Re quested Visits Authorized [id number] 1 1 Encounter Details Date Type Department Care Team (Latest Contact Info) Description 01/12/2020 7:07 AM CDT - 01/12/2020 10:05 AM CDT Hospital Encounter [facility] [place] [address] Nasim Russell MD [address] [address] Discharge Disposition: Home or Self Care (Routine [...] CDT Gender Identity Female 07/17/2022 10:27 AM FIXED ASSETS ACCOUNTANT Sexual Orientation Straight 07/17/2022 10 :27 AM FIXED ASSETS ACCOUNTANT COVID-19 Exposure Response Date Recorded In the [...] through Care Everywhere. * Colonoscopy Discharge Instructions (Tunisian) * General Anesthesia Discharge Instructions (Tunisian) documented in this encounter Medications at Time [...] file Gets together: Not on file Attends spiritism service: Not on file Active member of [...] Russell MD - 01/12/2020 9:37 AM CDT [facility] OpNote COLONOSCOPY SCREENING Procedure Note Veronica Evangelista 01/12/2020 0900 Procedure(s) (LRB): COLONOSCOPY SCREENING (N/A) Surgeon(s): Nasim Russell MD Staff: GI Nurse: Hope Aguilera RN executive administrator: Joaquin Christensen Anesthesia: General Anesthesiologist: Amber Blanton [...] st Contact Info) Description 07/25/2024 10:00 AM FIXED ASSETS ACCOUNTANT Office Visit [facility] Medical Group Family & Internal Medicine - [place] [address] [place] [address] Keyonna Armstrong APNP [address] [place] [address] 07/31/2024 10:15 AM FIXED ASSETS ACCOUNTANT Office Visit [facility] THREE [facility], [place] [address] [place] [address] Pepe Mitchell MD Three [facility]. [place] [address] [place] [address] documented as of this encounter Procedures Procedure Name Priority Date/Time Associated Diagnosis Comments COLONOSCOPY SCREENING 01/12/2020 9:04 AM CDT SCREENING Case Notes SCHEDULED BY FAX 08/29/19 LB POCT GLUCOSE - MAJANO DOCKED DEVICE Routine 01/12/2020 7:57 AM CDT documented in this encounter Results * POCT glucose (01/12/2020 7:57 AM CDT) GLUCOSE POC 75 70 - 99 mg/dL 01/14/2020 4:05 PM CDT [facility] LAB ORDERS INTERFACE 01/12/2020 7:57 AM CDT us Nasim Russell MD POCT ORDERABLES - DEVICE Final R esult [facility] LAB ORDERS INTERFACE US documented in this encounter Visit Diagnoses Not on filedocumented in this encounter Additional Health Concerns Assessment Noted Time PHQ-9 Depression Total Score: 22 020 3:46 PM FIXED ASSETS ACCOUNTANT documented as of this encounter Care Teams Head Sulfide Operator Relationship Specialty Start Date End Date Kyeonna Armstrong APNP [address] [place] [address] PCP - General NURSE PRACTITIONER 05/06/18 documented as of this encounter
--- OUTSIDE RECORDS SUMMARY | 2024-07-11 00:13 | XMS_ITS | Encounter Summary ---
Author Organization [facility] Address [address] [place] [address]. [place], [place] [address] [place] [address] Care Team Providers Care Agricultural Consultant Name Role Phone Keyonna Armstrong Primary Care Provider [phone] Encounter Details Date Type Department Care Team [...] CDT Gender Identity Female 07/17/2022 10:27 AM PRODUCTION TOOL ENGINEER Sexual Orientation Straight 07/17/2022 10 :27 AM PRODUCTION TOOL ENGINEER COVID-19 Exposure Response Date Recorded In the last month, have you been in contact with someone who was confirmed or suspected to have Coronavirus / COVID-19? No / Unsure 05/13/2021 12:47 PM CDT documented as of this encounter Plan of Treatment Upcoming Encounters Date Type Department Care Team (Late st Contact Info) Description 07/25/2024 10:00 AM PRODUCTION TOOL ENGINEER Office Visit [facility] Family & Internal Medicine - [place] [address] [place] [address] Keyonna Armstrong APNP [address] [place] [address] 07/31/2024 10:15 AM PRODUCTION TOOL ENGINEER Office Visit [facility] THREE [facility], [facility] [address] [place] [address] Pepe Mitchell MD Three [facility]. [facility] [address] [place], [place] [phone] documented as of this encounter Visit Diagnoses Not on filedocumented in this encounter Additional Health Concerns Assessment Noted Time PHQ-9 Depression Total Score: 22 020 3:46 PM PRODUCTION TOOL ENGINEER documented as of this encounter Care Teams Agricultural Consultant Relationship Specialty Start Date End Date Keyonna Armstrong APNP [address] [place] [address] PCP - General NURSE PRACTITIONER 05/06/18 documented as of this encounter
--- OUTSIDE RECORDS SUMMARY | 2024-07-11 00:13 | XMS_ITS | Encounter Summary ---
Author Organization [facility] Address [address] [place] [address]. [place], [place] [address] [place] [address] Care Team Providers Care Traffic Recorder Name Role Phone Keyonna Armstrong Primary Care Provider [phone] Encounter Details Date Type Department Care Team [...] CDT Gender Identity Female 07/17/2022 10:27 AM MACHINE BURRER Sexual Orientation Straight 07/17/2022 10 :27 AM MACHINE BURRER documented as of this encounter Plan of Treatment Upcoming Encounters Date Type Department Care Team ( Contact Info) Description 07/25/2024 10:00 AM MACHINE BURRER Office Visit [facility] Medical Group Family & Internal Medicine [address] [address] Keyonna Armstrong APNP [address] [place] [address] 07/31/2024 10:15 AM MACHINE BURRER Office Visit [facility] THREE [facility], [facility] [address] [place], [place] [address] Pepe Mitchell MD Three [facility]. [facility] [address] [place] [address] documented as of this encounter Visit Diagnoses Not on filedocumented in this encounter Additional Health Concerns Assessment Noted Time PHQ-9 Depression Total Score: 22 020 3:46 PM MACHINE BURRER documented as of this encounter Care Teams Traffic Recorder Relationship Specialty Start Date End Date Keyonna Armstrong APNP [address] [place] [address] PCP - General NURSE PRACTITIONER 05/06/18 documented as of this encounter
--- OUTSIDE RECORDS SUMMARY | 2024-07-11 00:13 | XMS_ITS | Encounter Summary ---
Author Organization [facility] Address [facility]. [place], [place] [address] [place] [address] Care Team Providers Care Home Security Professional Name Role Phone Aracely Armstrong Primary Care Provider [phone] Reason for Referral * Physical Medicine (Routine) - Closed Specialty Diagnoses / Procedures Referred By Lee t Referred To Contact PHYSICAL THERAPY / [facility] Physical Therapy Diagnoses Chronic right shoulder pain Aracely Armstrong APNP [address] [place] [address] Phone: tel: fax: [facility] Physical Therapy [address] [facility] [address] [place] [address] Phone: tel: fax: Referral ID Status Reason Start Date Expiration Date V isits Requested Visits Authorized [id number] Closed Physical Therapy 05/13/2021 06/12/2022 1 1 Reason for Visit * Reason Comments Medication med f/u Anxiety Encounter Details Date Type Department Care Team (Late st Contact Info) Description 05/13/2021 12:40 PM CDT Office Visit [facility] Medical Group Family & Internal Medicine - [place] [address] [place] [address] Aracely Armstrong APNP [address], [place] [id number] Medication (med f/u); Anxiety Social History Tobacco [...] Identity Female 07/17/2022 10:27 AM QUALITY ASSURANCE LEAD Sexual Orientation Straight 07/17/2022 10 :27 AM QUALITY ASSURANCE LEAD COVID-19 Exposure Response Date Recorded In the [...] from the original note were not included. [facility] FAMILY AND INTERNAL MEDICINE OFFICE VISIT Reason [...] last 2 months. She has gone to [facility] and diagnosed with bursitis. Then he went to see her 's chiropractor who thinks it is coming from her neck. She returned back to [facility] and got Xrays of her [...] SCREENING performed by Burt Payne MD at [facility] ??? GASTRIC BYPASS N/A 2004 Social History: [...] Gatherings with Friends and Family: ??? Attends Anabaptism Services: ??? Active Member of Clubs or [...] Stable. Continue as needed use of zolpidem. [place]-SH[place] SHANKER checked today and found to be appropriate. 3. Primary hypertension Stable. Continue meds. 4. Gastroesophageal reflux disease, unspecified whether esophagitis present Stable. Continue medications. 5. Adenoma of left adrenal gland Patient will keep appointment with banquet coordinator as scheduled 6. Recurrent major depressive disorder, in partial remission (CMS/HCC) Stable. Continue meds. Continue follow-up with PMH METER AND SERVICE LINE INSPECTOR 7. Anxiety Stable. Continue medications. Continue follow-up with PMH METER AND SERVICE LINE INSPECTOR 8. Chronic right shoulder pain - Ambulatory [...] Info) Description 07/25/2024 10:00 AM QUALITY ASSURANCE LEAD Office Visit [facility] Medical Group Family & Internal Medicine - [address] [address] Aracely Armstrong APNP [address] [place] [address] 07/31/2024 10:15 AM QUALITY ASSURANCE LEAD Office Visit [facility] [address] [place] [address] Pepe Mitchell MD Three [facility]. [facility] [address] [place], [place] [address] Scheduled Referrals Name Type Priority Associated Diagnoses [...] t [facility] [address] [place] [address] documented in this encounter Visit Diagnoses Diagnosis [...] Score: 22 020 3:46 PM QUALITY ASSURANCE LEAD documented as of this encounter Care Teams Home Security Professional Relationship Specialty Start Date End Date Aracely Armstrong APNP [address] [place] [address] PCP - General NURSE PRACTITIONER 05/06/18 documented as of this encounter
--- OUTSIDE RECORDS SUMMARY | 2024-07-11 00:13 | XMS_ITS | Encounter Summary ---
Author Organization [facility] Address [address] [place] [address]. [place], [place] [address] [place] [address] Care Team Providers Care Hand Pattern Marker Name Role Phone Keyonna Armstrong Primary Care Provider [phone] Encounter Details Date Type Department Care Team (Late st Contact Info) Description 01/09/2020 Prep for Procedure [facility] [place], [place] [address] Burt Payne MD [address] [address] Social History Tobacco Use Types Packs/Day Years [...] CDT Gender Identity Female 07/17/2022 10:27 AM PLC ENGINEER Sexual Orientation Straight 07/17/2022 10 :27 AM PLC ENGINEER COVID-19 Exposure Response Date Recorded In the last month, have you been in contact with someone who was confirmed or suspected to have Coronavirus / COVID-19? No / Unsure 01/12/2020 7:07 AM CDT documented as of this encounter Plan of Treatment Upcoming Encounters Date Type Department Care Team (Late st Contact Info) Description 07/25/2024 10:00 AM PLC ENGINEER Office Visit [facility] Medical Group Family & Internal Medicine [facility] [address] [place] [address] Keyonna Armstrong, YOBANI [address] [place] [address] 07/31/2024 10:15 AM PLC ENGINEER [facility], [facility] [address] [place], [place] [phone] Pepe Mitchell MD Three [facility]. [facility] [address] [place] [address] documented as of this encounter Results * PRE-SURGICAL/PRE-PROCEDURE CORONAVIRUS (COVID 19) (01/09/2020 1:54 PM CDT) CORONAVIRUS SARS COV 2 PCR (RESP) NOT DETECTED NOT DETECTED 01/10/2020 9:43 PM CDT [facility] Comment: A Not Detected (negative) test result [...] providers and patients using the following websites: https://www.[employer].com/home/Covid-19/HCP/Quest[employer]/fact- sheet.html https://www.[employer].Osteomimetics/home/Covid-19/Patients/ Quest[employer]/fact-sheet.html This test has been authorized by the FDA under an Emergency Use Authorization (EUA) for use by authorized laboratories. Due to the current public health emergency, [employer] is receiving a high volume of samples [...] about COVID-19 can be found at the [employer] website: www.[employer].Osteomimetics/Covid19. Test performed at [facility] [place] [address] [place], [place] ??[address] Director: GENE VILLAR DO,MPH NASOPHARYNGEAL SWAB / Unknown 01/09/2020 1:54 PM CDT us Burt Payne MD MICROBIOLOGY - GENERAL ORDERABLE S Final Result [facility] [address] documented in this encounter Visit Diagnoses Diagnosis Encounter for screening colonoscopy- Primary Special screening for malignant neoplasms, colon documented in this encounter Additional Health Concerns Infection Onset Date Last Indicated Resolved Time COVID-19 Rule Out 01/09/2020 01/09/2020 01/10/2020 9:43 PM CDT Assessment Noted Time PHQ-9 Depression Total Score: 22 020 3:46 PM PLC ENGINEER documented as of this encounter Care Teams Hand Pattern Marker Relationship Specialty Start Date End Date Keyonna Armstrong APNP [address] [place] [address] PCP - General NURSE PRACTITIONER 05/06/18 documented as of this encounter
--- OUTSIDE RECORDS SUMMARY | 2024-07-11 00:13 | XMS_ITS | Encounter Summary ---
Author Organization [facility] Address [address] [place] [address]. [place], [place] [address] [place] [address] Care Team Providers Care Systems Lead Name Role Phone Keyonna Armstrong Primary Care Provider [phone] Encounter Details Date Type Department Care Team [...] CDT Gender Identity Female 07/17/2022 10:27 AM PRIVATE SECURITY GUARD Sexual Orientation Straight 07/17/2022 10 :27 AM PRIVATE SECURITY GUARD documented as of this encounter Plan of Treatment Upcoming Encounters Date Type Department Care Team ( Contact Info) Description 07/25/2024 10:00 AM PRIVATE SECURITY GUARD Office Visit [facility] Medical Group Family & Internal Medicine [address] [address] Keyonna Armstrong APNP [address] [place] [address] 07/31/2024 10:15 AM PRIVATE SECURITY GUARD Office Visit [facility] THREE [facility], [facility] [address] [place] [address] Pepe Mitchell MD Three [facility]. [facility] [address] [place] [address] documented as of this encounter Visit Diagnoses Not on filedocumented in this encounter Additional Health Concerns Assessment Noted Time PHQ-9 Depression Total Score: 22 020 3:46 PM PRIVATE SECURITY GUARD documented as of this encounter Care Teams Systems Lead Relationship Specialty Start Date End Date Keyonna Armstrong APNP [address] [place] [address] PCP - General NURSE PRACTITIONER 05/06/18 documented as of this encounter
--- OUTSIDE RECORDS SUMMARY | 2024-07-11 00:13 | XMS_ITS | Encounter Summary ---
Author Organization [facility] Address [address] [place] [address]. [place], [place] [address] [place] [address] Care Team Providers Care Process Design Chemical Engineer Name Role Phone Keyonna Armstrong Primary Care Provider [phone] Encounter Details Date Type Department Care Team [...] CDT Gender Identity Female 07/17/2022 10:27 AM EXPERIENCE DESIGN DIRECTOR Sexual Orientation Straight 07/17/2022 10 :27 AM EXPERIENCE DESIGN DIRECTOR COVID-19 Exposure Response Date Recorded In the last month, have you been in contact with someone who was confirmed or suspected to have Coronavirus / COVID-19? No / Unsure 09/17/2020 11:25 AM EXPERIENCE DESIGN DIRECTOR documented as of this encounter Plan of Treatment Upcoming Encounters Date Type Department Care Team (Late st Contact Info) Description 07/25/2024 10:00 AM EXPERIENCE DESIGN DIRECTOR Office Visit [facility] Medical Group Family & Internal Medicine - [place] [address] [place] [address] Keyonna Armstrong APNP [address] [place] [address] 07/31/2024 10:15 AM EXPERIENCE DESIGN DIRECTOR Office Visit [facility] [address] [place] [address] Pepe Mitchell MD Three [facility]. [facility] [address] [place] [address] documented as of this encounter Visit Diagnoses Not on filedocumented in this encounter Additional Health Concerns Assessment Noted Time PHQ-9 Depression Total Score: 22 020 3:46 PM EXPERIENCE DESIGN DIRECTOR documented as of this encounter Care Teams Process Design Chemical Engineer Relationship Specialty Start Date End Date Keyonna Armstrong APNP [address] [place] [address] PCP - General NURSE PRACTITIONER 05/06/18 documented as of this encounter
--- OUTSIDE RECORDS SUMMARY | 2024-07-11 00:13 | XMS_ITS | Encounter Summary ---
Author Organization [facility] Address [address] [place] [address]. [place], [place] [address] [place] [address] Care Team Providers Care Certified Surgical First Assistant Name Role Phone Keyonna Armstrong Primary Care Provider [phone] Encounter Details Date Type Department Care Team [...] CDT Gender Identity Female 07/17/2022 10:27 AM PRINTING SIGN MACHINE OPERATOR Sexual Orientation Straight 07/17/2022 10 :27 AM PRINTING SIGN MACHINE OPERATOR COVID-19 Exposure Response Date Recorded In the last month, have you been in contact with someone who was confirmed or suspected to have Coronavirus / COVID-19? No / Unsure 01/06/2020 12:48 PM CDT documented as of this encounter Plan of Treatment Upcoming Encounters Date Type Department Care Team (Late st Contact Info) Description 07/25/2024 10:00 AM PRINTING SIGN MACHINE OPERATOR Office Visit [facility] Medical Group Family & Internal Medicine - [place] [address] [place] [address] Keyonna Armstrong APNP [address] [place] [address] 07/31/2024 10:15 AM PRINTING SIGN MACHINE OPERATOR Office Visit [facility] THREE [facility], [facility] [address] [place] [address] Pepe Mitchell MD Three [facility]. [facility] [address] [place] [address] documented as of this encounter Visit Diagnoses Not on filedocumented in this encounter Additional Health Concerns Assessment Noted Time PHQ-9 Depression Total Score: 22 020 3:46 PM PRINTING SIGN MACHINE OPERATOR documented as of this encounter Care Teams Certified Surgical First Assistant Relationship Specialty Start Date End Date Keyonna Armstrong APNP [address] [place] [address] PCP - General NURSE PRACTITIONER 05/06/18 documented as of this encounter
--- OUTSIDE RECORDS SUMMARY | 2024-07-11 00:13 | XMS_ITS | Encounter Summary ---
Author Organization [facility] Address [address] [place] [address]. [place] [address] [place] [address] Care Team Providers Care Fire Lookout Name Role Phone Keyonna Armstrong Primary Care Provider [phone] Reason for Visit * Auth/Cert Specialty Diagnoses / Procedures Referred By Contac t Referred To Contact Diagnoses SCREENING Procedures COLONOSCOPY SCREENING Referral ID Status Reason Start Date Expiration Date Visits Re quested Visits Authorized [id number] 1 1 Encounter Details Date Type Department Care Team (Late st Contact Info) Description 01/12/2020 9:00 AM CDT - 01/12/2020 9:30 AM CDT Surgery [facility] [address] Nasim Russell MD [address] [address] COLONOSCOPY SCREENING Surgery Details Date/Time Status Location [...] CDT Gender Identity Female 07/17/2022 10:27 AM PARKING LOT ATTENDANT AND CASHIER Sexual Orientation Straight 07/17/2022 10 :27 AM PARKING LOT ATTENDANT AND CASHIER COVID-19 Exposure Response Date Recorded In the [...] through Care Everywhere. * Colonoscopy Discharge Instructions (Niuean) * General Anesthesia Discharge Instructions (Niuean) documented in this encounter Medications at Time [...] file Gets together: Not on file Attends jain service: Not on file Active member of [...] Russell MD - 01/12/2020 9:37 AM CDT [facility]Note COLONOSCOPY SCREENING Procedure Note Veronica Sacha Tonja 01/12/2020 0900 Procedure(s) (LRB): COLONOSCOPY SCREENING (N/A) Surgeon(s): Nasim Russell MD Staff: GI Nurse: Hope Aguilera RN ground instructor advanced: Joaquin Christensen Anesthesia: General Anesthesiologist: Amber Blanton [...] (Katia Contact Info) Description 07/25/2024 10:00 AM PARKING LOT ATTENDANT AND CASHIER Office Visit [facility] Medical Group Family & Internal Medicine - [place] [address] [place] [address] Keyonna Armstrong APNP [address] [place] [address] 07/31/2024 10:15 AM PARKING LOT ATTENDANT AND CASHIER Office Visit [facility] THREE [facility] [address] [place], [place] [address] Pepe Mitchell MD Three [facility]. [facility] [address] [place], [place] [address] documented as of this encounter Procedures Procedure Name Priority Date/Time Associated Diagnosis Comments COLONOSCOPY SCREENING 01/12/2020 9:04 AM CDT SCREENING Case Notes SCHEDULED BY FAX 08/29/19 LB POCT GLUCOSE - MAJANO DOCKED DEVICE Routine 01/12/2020 7:57 AM CDT documented in this encounter Results * POCT glucose (01/12/2020 7:57 AM CDT) GLUCOSE POC 75 70 - 99 mg/dL 01/14/2020 4:05 PM CDT [facility] LAB ORDERS INTERFACE 01/12/2020 7:57 AM CDT us Nasim Russell MD POCT ORDERABLES - DEVICE Final R esult [facility] LAB ORDERS INTERFACE US documented in this encounter Visit Diagnoses Not on filedocumented in this encounter Additional Health Concerns Assessment Noted Time PHQ-9 Depression Total Score: 22 020 3:46 PM PARKING LOT ATTENDANT AND CASHIER documented as of this encounter Care Teams Fire Lookout Relationship Specialty Start Date End Date Keyonna Armstrong APNP [address] [place] [address] PCP - General NURSE PRACTITIONER 05/06/18 documented as of this encounter
--- OUTSIDE RECORDS SUMMARY | 2024-07-11 00:13 | XMS_ITS | Encounter Summary ---
Author Organization [facility] Address [facility] [place], [place] [address] [place] [address] Care Team Providers Care Slab Worker Name Role Phone Keyonna Armstrong Primary Care Provider [phone] Reason for Referral * Imaging (Routine) - Closed Specialty Diagnoses / Procedures Referred By Contac t Referred To Contact RADIOLOGY Diagnoses Screening for breast cancer Procedures MG SCREENING W ROSS CATALINA DIGI Keyonna Armstrong APNP [address] [place] [address] Phone: tel: fax: [address] [address] Phone: tel: fax: Referral ID Status Reason Start Date Expiration Date Visits Re quested Visits Authorized [id number] Closed 05/19/2020 06/19/2021 1 1 Reason for Visit * Reason Onset Date Comments Breast Problem 05/19/2020 Encounter Details Date Type Department Care Team (Late st Contact Info) Description 05/19/2020 Telephone [facility] Medical Group Family & Internal Medicine - [place] [address] [place] [address] Keyonna Armstrong APNP [address] [place] [address] Breast Problem Social History Tobacco [...] CDT Gender Identity Female 07/17/2022 10:27 AM RULING MACHINE SET UP OPERATOR Sexual Orientation Straight 07/17/2022 10 :27 AM RULING MACHINE SET UP OPERATOR documented as of this encounter Plan of Treatment Upcoming Encounters Date Type Department Care Team (Late st Contact Info) Description 07/25/2024 10:00 AM RULING MACHINE SET UP OPERATOR Office Visit [facility] Medical Group Family & Internal Medicine [address] [address] Keyonna Armstrong APNP [address] [place] [address] 07/31/2024 10:15 AM RULING MACHINE SET UP OPERATOR Office Visit [facility] [address] [place] [address] Pepe Mitchell MD [facility]. [facility] [address] [place] [address] Scheduled Orders Name Type Priority Associated Diagnoses Orde r Schedule MG SCREENING W ROSS CATALINA DIGI MAMMO Routine Screening for breast cancer Ordered: 05/19/2020 documented as of this encounter Visit Diagnoses Diagnosis Screening for breast cancer- Primary Breast screening, unspecified documented in this encounter Additional Health Concerns Assessment Noted Time PHQ-9 Depression Total Score: 22 020 3:46 PM RULING MACHINE SET UP OPERATOR documented as of this encounter Care Teams Slab Worker Relationship Specialty Start Date End Date Keyonna Armstrong APNP [address] [place] [address] PCP - General NURSE PRACTITIONER 05/06/18 documented as of this encounter
--- OUTSIDE RECORDS SUMMARY | 2024-07-11 00:13 | XMS_ITS | Encounter Summary ---
Author Organization [facility] Address [address] [place] [address]. [place], [place] [address] [place] [address] Care Team Providers Care District Ranger Name Role Phone Keyonna Armstrong Primary Care Provider [phone] Encounter Details Date Type Department Care Team (Latest Contact Info) Description 01/09/2020 10:30 AM CDT - 01/09/2020 11:59 PM T Hospital Encounter [facility] [place] [address] Burt Payne MD 3 [facility] [address] [place] [address] Discharge Disposition: Home or Self Care (Routine [...] CDT Gender Identity Female 07/17/2022 10:27 AM TILE POWER SHEAR OPERATOR Sexual Orientation Straight 07/17/2022 10 :27 AM TILE POWER SHEAR OPERATOR COVID-19 Exposure Response Date Recorded In [...] Anxiety,Recurrent major depressive disorder, in partial remission (CMS/[facility]) TAKE ONE TABLET TWICE DAILY. 180 tablet [...] st Contact Info) Description 07/25/2024 10:00 AM TILE POWER SHEAR OPERATOR Office Visit [facility] Medical Group Family & Internal Medicine - [place] [address] [place] [address] Keyonna Armstrong APNP [address] [place] [address] 07/31/2024 10:15 AM TILE POWER SHEAR OPERATOR Office Visit [facility] [address] [place], [place] [phone] Pepe Mitchell MD [facility]. [facility] [address] [place] [address] documented as of this encounter Procedures Procedure Name Priority Date/Time Associated Diagnosis Comments CORONAVIRUS (COVID 19) STAT 01/09/2020 1:54 PM CDT Encounter for screening colonoscopy documented in this encounter Results * PRE-SURGICAL/PRE-PROCEDURE CORONAVIRUS (COVID 19) (01/09/2020 1:54 PM CDT) CORONAVIRUS SARS COV 2 PCR (RESP) NOT DETECTED NOT DETECTED 01/10/2020 9:43 PM CDT [facility] Comment: A Not Detected (negative) test result [...] providers and patients using the following websites: https://www.[employer].com/home/Covid-19/HCP/QuestIVD/fact- sheet.html https://www.[employer].R[employer]y/home/Covid-19/Patients/ QuestIVD/fact-sheet.html This test has been authorized by the FDA under an Emergency Use Authorization (EUA) for use by authorized laboratories. Due to the current public health emergency, [employer] is receiving a high volume of samples [...] about COVID-19 can be found at the [employer] website: www.[employer]/Covid19. Test performed at [facility] [place] [address] [place], [place] ??[address] Director: GENE VILLAR DO,MPH NASOPHARYNGEAL SWAB / Unknown 01/09/2020 1:54 PM CDT us Burt Payne MD MICROBIOLOGY - GENERAL ORDERABLE S Final Result [facility] [address] [place] [address] documented in this encounter Visit Diagnoses Diagnosis Encounter for screening colonoscopy Special screening for malignant neoplasms, colon documented in this encounter Additional Health Concerns Infection Onset Date Last Indicated Resolved Time COVID-19 Rule Out 01/09/2020 01/09/2020 01/10/2020 9:43 PM CDT Assessment Noted Time PHQ-9 Depression Total Score: 22 020 3:46 PM TILE POWER SHEAR OPERATOR documented as of this encounter Care Teams District Ranger Relationship Specialty Start Date End Date Keyonna Armstrong APNP [address] [place] [address] PCP - General NURSE PRACTITIONER 05/06/18 documented as of this encounter
--- OUTSIDE RECORDS SUMMARY | 2024-07-11 00:13 | XMS_ITS | Encounter Summary ---
Author Organization [facility] Address [address] [place] [address]. [place], [place] [id number] [place] [address] Care Team Providers Care Water Fitness Instructor Name Role Phone Keyonna Armstrong Primary Care Provider [phone] Reason for Visit * Reason Onset Date Comments Reschedule 11/14/2019 Encounter Details Date Type Department Care Team (Late st Contact Info) Description 11/14/2019 Telephone [facility] Multispecialty Care - [facility] 3 [facility] [address] [place] [address] Burt Payne MD 3 [facility] [address] [place] [address] Reschedule Social History Tobacco Use Types Packs/Day [...] CDT Gender Identity Female 07/17/2022 10:27 AM TESTER OPERATOR Sexual Orientation Straight 07/17/2022 10 :27 AM TESTER OPERATOR documented as of this encounter Progress [...] st Contact Info) Description 07/25/2024 10:00 AM TESTER OPERATOR Office Visit [facility] Medical [facility] Family & Internal Medicine [address] [address] Keyonna Armstrong APNP [address] [place] [address] 07/31/2024 10:15 AM TESTER OPERATOR Office Visit [facility] THREE [facility] [address] [place] [address] Pepe Mitchell MD Three [facility]. [facility] [address] [place] [address] documented as of this encounter Visit Diagnoses Not on filedocumented in this encounter Additional Health Concerns Assessment Noted Time PHQ-9 Depression Total Score: 22 020 3:46 PM TESTER OPERATOR documented as of this encounter Care Teams Water Fitness Instructor Relationship Specialty Start Date End Date Keyonna Armstrong APNP [address] [place] [address] PCP - General NURSE PRACTITIONER 05/06/18 documented as of this encounter
--- OUTSIDE RECORDS SUMMARY | 2024-07-11 00:13 | XMS_ITS | Encounter Summary ---
Author Organization [facility] Address [address] [place] [address]. [place], [place] [id number] [place] [address] Care Team Providers Care Social Sciences Research Scientist Name Role Phone Keyonna Armstrong Primary Care Provider [phone] Reason for Visit * Reason Comments Colonoscopy [...] CDT Gender Identity Female 07/17/2022 10:27 AM SOCIAL SERVICES ANALYST Sexual Orientation Straight 07/17/2022 10 :27 AM SOCIAL SERVICES ANALYST COVID-19 Exposure Response Date Recorded In the last month, have you been in contact with someone who was confirmed or suspected to have Coronavirus / COVID-19? No / Unsure 05/13/2021 12:47 PM CDT documented as of this encounter Plan of Treatment Upcoming Encounters Date Type Department Care Team (Late st Contact Info) Description 07/25/2024 10:00 AM SOCIAL SERVICES ANALYST Office Visit [facility] Family & Internal Medicine - [place] [address] [place] [address] Keyonna Armstrong APNP [address] [place] [address] 07/31/2024 10:15 AM SOCIAL SERVICES ANALYST Office Visit [facility] THREE [facility] [address] [place], [place] [address] Pepe Mitchell MD Three [facility]. [facility] [address] [place], [place] [id number] documented as of this encounter Procedures Procedure Name Priority Date/Time Associated Diagnosis Comments COLONOSCOPY GENERIC (SCAN ORDER) Routine 01/12/2020 documented in this encounter Results * COLONOSCOPY (01/12/2020) us Documents Scanned SCANNING Final Result [facility] documented in this encounter Visit Diagnoses Not on filedocumented in this encounter Additional Health Concerns Assessment Noted Time PHQ-9 Depression Total Score: 22 07/29/ 020 3:46 PM SOCIAL SERVICES ANALYST documented as of this encounter Care Teams Social Sciences Research Scientist Relationship Specialty Start Date End Date Keyonna Armstrong APNP [address] [place] [address] PCP - General NURSE PRACTITIONER 05/06/18 documented as of this encounter
--- OUTSIDE RECORDS SUMMARY | 2024-07-11 00:13 | XMS_ITS | Encounter Summary ---
Author Organization [facility] Address [address] [place] [address]. [place] [address] [place] [address] Care Team Providers Care Tool Rental Technician Name Role Phone Keyonna Armstrong Primary Care Provider [phone] Reason for Visit * Auth/Cert Specialty Diagnoses / Procedures Referred By Lee t Referred To Contact Diagnoses SCREENING Procedures COLONOSCOPY SCREENING Referral ID Status Reason Start Date Expiration Date Visits Re quested Visits Authorized [id number] 1 1 Encounter Details Date Type Department Care Team (Late st Contact Info) Description 01/12/2020 9:20 AM CDT Anesthesia Event [facility] [place] [address] Amber Chavez MD [address] [address] Anesthesia Record Procedure Summary Procedure Name Responsible Anesthesiologist Anesthesia Start Time Anesthesia Stop Time COLONOSCOPY SCREENING Amber champion MD 01/12/20 0920 01/12/20 0938 Events Date Time Event Comment 01/12/2020 0859 0859 AN Anesthesia Prepped 0901 AN M[employer]ICAN FOOD MACHINE TENDER Prepped 0904 An Start Data 0905 Nasal [...] CDT Gender Identity Female 07/17/2022 10:27 AM REMOTE SENSING SPECIALIST Sexual Orientation Straight 07/17/2022 10 :27 AM REMOTE SENSING SPECIALIST COVID-19 Exposure Response Date Recorded In [...] Anxiety 06/11/2018: Cholecystitis No date: Diabetes mellitus ([facility]) 04/22/2013: Esophageal reflux 06/19/2012: Hypertension 04/02/2018: Insomnia 04/02/2018: Menorrhagia 09/23/2013: Morbid obesity ([facility]) 08/02/2012: Obstructive sleep apnea 09/20/2017: Sinus tachycardia [...] st Contact Info) Description 07/25/2024 10:00 AM REMOTE SENSING SPECIALIST Office Visit [facility] Family & Internal Medicine - [place] [address] [place] [address] Keyonna Armstrong APNP [address] [place] [address] 07/31/2024 10:15 AM REMOTE SENSING SPECIALIST Office Visit [facility] THREE [facility] [address] [place], [place] [phone] Pepe Mitchell MD Three [facility]. [facility] [address] [place], [place] [phone] documented as of this encounter Visit Diagnoses [...] Depression Total Score: 22 020 3:46 PM REMOTE SENSING SPECIALIST documented as of this encounter Care Teams Tool Rental Technician Relationship Specialty Start Date End Date Keyonna Armstrong APNP [address] [place] [address] PCP - General NURSE PRACTITIONER 05/06/18 documented as of this encounter
--- OUTSIDE RECORDS SUMMARY | 2024-07-11 00:13 | XMS_ITS | Encounter Summary ---
Author Organization [facility] Address [address] [place] [address]. [place] [phone] [place] [address] Care Team Providers Care Chipper Feeder Name Role Phone Keyonna Armstrong Primary Care Provider [phone] Reason for Visit * Reason Comments Medication Check Encounter Details Date Type Department Care Team (Late st Contact Info) Description 03/04/2020 11:00 AM CDT Telemedicine [facility] Medical Group Family & Internal Medicine [facility] [address] [place] [address] Keyonna Armstrong APNP [address] [place], [place] [id number] Medication Check Social History Tobacco Use Types [...] CDT Gender Identity Female 07/17/2022 10:27 AM CARPENTER MINE Sexual Orientation Straight 07/17/2022 10 :27 AM CARPENTER MINE documented as of this encounter Progress Notes * Keyonna Angeles YOBANI Armstrong - 03/04/2020 11:00 AM CDT Images from the original note were not included. [facility] FAMILY AND INTERNAL MEDICINE OFFICE VISIT I introduced and identified myself, received verbal consent from the patient to proceed with this video visit and made the patient aware that the same confidentiality and information systems architect practices apply. The patient joined the video [...] any HI/SI. Sees Jean Paul Seals in [facility]. GERD - Feels like symptoms controlled. Pantoprazole [...] states she has an appt with her NEURO UROLOGIST scheduled for in Mar. She hasan appt with Dr. Colindres. Unsure of last mammo. Had done at [place]. Mammo was ordered in 04/2019. Pt is [...] 09/20/2017 ??? Cholecystitis 06/11/2018 ??? Diabetes mellitus ([facility]) ??? Esophageal reflux 04/22/2013 ??? Hypertension 06/19/2012 ??? Insomnia 04/02/2018 ??? Menorrhagia 04/02/2018 ??? Morbid obesity (CMS/HCC) 09/23/2013 ??? Obstructive sleep apnea 08/02/2012 ??? Sinus tachycardia 09/20/2017 Surgical History: Past Surgical History: Procedure Laterality Date ??? CHOLECYSTECTOMY ??? COLONOSCOPY N/A 01/12/2020 COLONOSCOPY SCREENING performed by Burt Payne MD at [facility] ??? GASTRIC BYPASS N/A 2004 [...] file Gets together: Not on file Attends hoahaoism service: Not on file Active member of [...] today. Patient is to continue follow-up with NEURO UROLOGIST. She was advised of the risk, benefits [...] st Contact Info) Description 07/25/2024 10:00 AM CARPENTER MINE Office Visit [facility] Medical Group Family & Internal Medicine - [place] [address] [place] [address] Keyonna Armstrong APNP [address] [place] [address] 07/31/2024 10:15 AM CARPENTER MINE Office Visit [facility] THREE [facility], [facility] [address] [place], [place] [phone] Pepe Mitchell MD Three [facility]. [facility] [address] [place], [place] [phone] documented as of this encounter Visit Diagnoses Diagnosis Essential hypertension- Primary Unspecified essential hypertension Obstructive sleep apnea Obstructive sleep apnea (adult) (pediatric) Gastroesophageal reflux disease, esophagitis presence not specified Dyslipidemia Other and unspecified hyperlipidemia Anxiety Anxiety state, unspecified Recurrent major depressive disorder, in partial remission ([facility]) Need for hepatitis C screening test Special screening examination for other specified viral diseases Abnormal platelets ([facility]) Qualitative platelet defects Right ovarian cyst Other and unspecified ovarian cyst Class 3 severe obesity due to excess calories with serious comorbidity and body mass index (BMI) of 50.0 to 59.9 in adult ([facility]) documented in this encounter Additional Health Concerns Assessment Noted Time PHQ-9 Depression Total Score: 22 020 3:46 PM CARPENTER MINE documented as of this encounter Care Teams Chipper Feeder Relationship Specialty Start Date End Date Keyonna Armstrong APNP [address] [place] [address] PCP - General NURSE PRACTITIONER 05/06/18 documented as of this encounter
--- OUTSIDE RECORDS SUMMARY | 2024-07-11 00:13 | XMS_ITS | Encounter Summary ---
Author Organization [facility] Address [address] [place] [address]. [place], [place] [address] [place] [address] Care Team Providers Care Handcrew Foreman Name Role Phone Keyonna Armstrong Primary Care Provider [phone] Encounter Details Date Type Department Care Team [...] CDT Gender Identity Female 07/17/2022 10:27 AM LEATHER LEVELER Sexual Orientation Straight 07/17/2022 10 :27 AM LEATHER LEVELER COVID-19 Exposure Response Date Recorded In the last month, have you been in contact with someone who was confirmed or suspected to have Coronavirus / COVID-19? No / Unsure 01/12/2020 7:07 AM CDT documented as of this encounter Plan of Treatment Upcoming Encounters Date Type Department Care Team (Late st Contact Info) Description 07/25/2024 10:00 AM LEATHER LEVELER Office Visit [facility] Family & Internal Medicine - [place] [address] [place] [address] Keyonna Armstrong APNP [address] [place] [address] 07/31/2024 10:15 AM LEATHER LEVELER Office Visit [facility] THREE [facility] [address] [place] [address] Pepe Mitchell MD Three [facility]. [facility] [address] [place] [address] documented as of this encounter Visit Diagnoses Not on filedocumented in this encounter Additional Health Concerns Assessment Noted Time PHQ-9 Depression Total Score: 22 020 3:46 PM LEATHER LEVELER documented as of this encounter Care Teams Handcrew Foreman Relationship Specialty Start Date End Date Keyonna Armstrong APNP [address] [place] [address] PCP - General NURSE PRACTITIONER 05/06/18 documented as of this encounter
--- OUTSIDE RECORDS SUMMARY | 2024-07-11 00:13 | XMS_ITS | Encounter Summary ---
Author Organization [facility] Address [address] [place] [address]. [place] [phone] [place] [address] Care Team Providers Care Superintendent Colliery Name Role Phone Keyonna Armstrong Primary Care Provider [phone] Reason for Visit * Reason Onset Date Comments Follow Up Call 08/31/2020 Encounter Details Date Type Department Care Team (Late st Contact Info) Description 08/31/2020 Telephone [facility] Medicine [facility] [address] [place] [address] Keyonna Armstrong APNP [address] [place] [address] Follow Up Call Social History [...] CDT Gender Identity Female 07/17/2022 10:27 AM BURN TABLE OPERATOR Sexual Orientation Straight 07/17/2022 10 :27 AM BURN TABLE OPERATOR documented as of this encounter Plan of Treatment Upcoming Encounters Date Type Department Care Team (Late st Contact Info) Description 07/25/2024 10:00 AM BURN TABLE OPERATOR [facility] Family & Internal Medicine - [place] [address] [place] [address] Keyonna Armstrong APNP [address] [place] [address] 07/31/2024 10:15 AM BURN TABLE OPERATOR Office Visit [facility] THREE [facility], [facility] [address] [place], [place] [phone] Pepe Mitchell MD Three [facility]. [facility] [address] [place], [place] [phone] documented as of this encounter Visit Diagnoses Not on filedocumented in this encounter Additional Health Concerns Assessment Noted Time PHQ-9 Depression Total Score: 22 020 3:46 PM BURN TABLE OPERATOR documented as of this encounter Care Teams Superintendent Colliery Relationship Specialty Start Date End Date Keyonna Armstrong APNP [address] [place] [address] PCP - General NURSE PRACTITIONER 05/06/18 documented as of this encounter
--- OUTSIDE RECORDS SUMMARY | 2024-07-11 00:13 | XMS_ITS | Encounter Summary ---
Author Organization [facility] Address [address] [place] [address]. [place] [phone] [place] [address] Care Team Providers Care Area Supervisor Name Role Phone Keyonna Armstrong Primary Care Provider [phone] Reason for Visit * Reason Onset Date Comments Results 08/13/2020 Encounter Details Date Type Department Care Team (Late st Contact Info) Description 08/13/2020 Telephone [facility] Medical Group Family & Internal Medicine [facility] [address] [place] [address] Keyonna Armstrong APNP [address] [place] [address] Results Social History Tobacco Use [...] CDT Gender Identity Female 07/17/2022 10:27 AM AUTOMOBILE BODY REPAIR CHIEF Sexual Orientation Straight 07/17/2022 10 :27 AM AUTOMOBILE BODY REPAIR CHIEF documented as of this encounter Progress Notes * Nenita Young MA - 08/16/2020 11:52 AM CST Patient notified and v/u MOBILE BODY REPAIR CHIEF * Flora Blackwell MA - 08/13/2020 12:36 PM CST Lm 08/13/20 tn MOBILE BODY REPAIR CHIEF * YOBANI Cruz - 08/13/2020 10:14 AM CST Recent mammogram showed no evidence of malignancy. Follow up screening mammo in one year. MOBILE BODY REPAIR CHIEF documented in this encounter Plan of Treatment Upcoming Encounters Date Type Department Care Team (Late st Contact Info) Description 07/25/2024 10:00 AM AUTOMOBILE BODY REPAIR CHIEF Office Visit [facility] Medical Group Family & Internal Medicine - [place] [address] [place] [address] Keyonna Armstrong APNP [facility] [place] [address] 07/31/2024 10:15 AM AUTOMOBILE BODY REPAIR CHIEF Office Visit [facility] THREE [facility], [facility] [address] [place] [address] Pepe Mitchell MD Three [facility]. [facility] [address] [place], [place] [address] documented as of this encounter Visit Diagnoses Not on filedocumented in this encounter Additional Health Concerns Assessment Noted Time PHQ-9 Depression Total Score: 22 020 3:46 PM AUTOMOBILE BODY REPAIR CHIEF documented as of this encounter Care Teams Area Supervisor Relationship Specialty Start Date End Date Keyonna Armstrong APNP [facility] [place] [address] PCP - General NURSE PRACTITIONER 05/06/18 documented as of this encounter
--- OUTSIDE RECORDS SUMMARY | 2024-07-11 00:13 | XMS_ITS | Encounter Summary ---
Author Organization [facility] Address Critical access hospital6 [facility]. [place], [place] [address] [place] [address] Care Team Providers Care Asset Accountant Name Role Phone Keyonna Armstrong Primary Care Provider [phone] Reason for Referral * Consultation (Routine) - Closed Specialty Diagnoses / Procedures Referred By Lee t Referred To Contact ENDOCRINOLOGY Diagnoses Adenoma of left adrenal gland Keyonna Armstrong APNP [address] [place] [address] Phone: tel: fax: Sury Rivas MD [address] [facility] [address] [place] [address] Phone: tel: fax: Referral ID Status Reason Start Date Expiration Date Visits Re quested Visits Authorized [id number] Closed 09/27/2020 09/27/2021 6 6 MENT SCANNER Reason for Visit * Reason Comments Other med check Encounter Details Date Type Department Care Team (Late st Contact Info) Description 09/17/2020 11:20 AM DOCUMENT SCANNER Office Visit [facility] - [place] [address] [place] [address] Keyonna Armstrong APNP [address] [place], [place] [phone] Other (med check ) Social History Tobacco [...] CDT Gender Identity Female 07/17/2022 10:27 AM DOCUMENT SCANNER Sexual Orientation Straight 07/17/2022 10 :27 AM DOCUMENT SCANNER COVID-19 Exposure Response Date Recorded In the last month, have you been in contact with someone who was confirmed or suspected to have Coronavirus / COVID-19? No / Unsure 09/17/2020 11:25 AM DOCUMENT SCANNER documented as of this encounter Last Filed Vital Signs Vital Sign Reading Time Taken Comments Blood Pressure 102/70 09/17/2020 11:35 AM DOCUMENT SCANNER Pulse 96 09/17/2020 11:35 AM DOCUMENT SCANNER Temperature 36.1 ??C (96.9 ??F) 09/17/2020 11:[address] Respiratory Rate 20 09/17/2020 11:35 AM DOCUMENT SCANNER Oxygen Saturation 97% 09/17/2020 11:35 AM DOCUMENT SCANNER 97 Inhaled Oxygen Concentration - - Weight 130.2 kg (287 lb) 09/17/2020 11:35 AM DOCUMENT SCANNER Height 165.1 cm (5' 5) 09/17/2020 11:35 AM DOCUMENT SCANNER Body Mass Index 47.76 09/17/2020 11:35 AM DOCUMENT SCANNER documented in this encounter Progress Notes * [...] any other URI type symptoms. She sees REAL ESTATE AGENT for well woman care. She is due [...] by Burt Payne MD at [facility] ??? GASTRIC BYPASS N/A 2004 Social History: [...] file Gets together: Not on file Attends evangelical service: Not on file Active member of [...] index (BMI)of 50.0 to 59.9 in adult ([facility]) CBC W/DIFF AUTOMATED LIPID PANEL TSH W/REFLEX URINALYSIS WI REFLEX TO CULTURE COMPREHENSIVE METABOLIC PANEL 4. Gastroesophageal reflux disease, unspecified whether esophagitis present Chronic CBC W/DIFF AUTOMATED 5. Dyslipidemia Chronic LIPID PANEL 6. Anxiety Chronic TSH W/REFLEX 7. Recurrent major depressive disorder, in partial remission ([facility]) TSH W/REFLEX 8. Primary insomnia Chronic 9. BMI 45.0-49.9, adult ([facility]) CBC W/DIFF AUTOMATED LIPID PANEL TSH W/REFLEX [...] Solo MD at 10/05/2020 11:20 AM CDT MENT SCANNER * YOBANI Cruz - 09/17/2020 11:20 AM CST TG's remain elevated---reduce sugars, carbs, fried foods and processed foods in diet Other labs are stable. Her WBC has ran high--has she ever seen a referral clerk in the past? documented in this encounter Plan of Treatment Upcoming Encounters Date Type Department Care Team (Late st Contact Info) Description 07/25/2024 10:00 AM DOCUMENT SCANNER Office Visit [facility] - [place] [address] [place] [address] Keyonna Armstrong APNP [address] [place] [address] 07/31/2024 10:15 AM DOCUMENT SCANNER Office Visit [facility] [address] [place], [place] [phone] Pepe Mitchell MD [facility]. [facility] [address] [place], [place] [phone] Scheduled Referrals Name Type Priority Associated Diagnoses [...] (BMI) of 50.0 to 59.9 in adult ([facility]) Anxiety Recurrent major depressive disorder, in partial remission BMI 45.0-49.9, adult ([facility]) COMPREHENSIVE METABOLIC PANEL Routine 10/21/2020 9:43 AM CDT Essential hypertension Class 3 severe obesity due to excess calories with serious comorbidity and body mass index (BMI) of 50.0 to 59.9 in adult ([facility]) BMI 45.0-49.9, adult ([facility]) LIPID PANEL Routine 10/21/2020 9:43 AM CDT Class 3 severe obesity due to excess calories with serious comorbidity and body mass index (BMI) of 50.0 to 59.9 in adult ([facility]/HCC) Dyslipidemia BMI 45.0-49.9, adult ([facility]) CBC W/DIFF AUTOMATED Routine 10/21/2020 9:43 AM CDT Class 3 severe obesity due to excess calories with serious comorbidity and body mass index (BMI) of 50.0 to 59.9 in adult ([facility]) Gastroesophageal reflux disease, unspecified whether esophagitis present BMI 45.0-49.9, adult ([facility]) documented in this encounter Results * URINALYSIS [...] lt [facility] [address] [place] [address] * COMPREHENSIVE METABOLIC PANEL (10/21/2020 9:43 AM CDT) GLUCOSE 98 65 - 99 mg/dL [facility] Comment: ? Fasting reference interval BUN 18 7 - 25 mg/dL [facility] CREATININE S/P/B 0.79 0.50 - 1.05 mg/dL [facility] Comment: For patients >49 years of age, the reference limit for Creatinine is approximately 13% higher for people identified as -Montenegrin. EGFR NON-AFR. AMER. 86 > OR = 60 mL/min/1 .73m2 [facility] EGFR AFR. AMER. 100 > OR = 60 mL/min/1 .73m2 [facility] BUN CREATININE RATIO NOT APPLICABLE 6 - 22 (calc) [facility] SODIUM S/P/B 139 135 - 146 mmol/L [facility] POTASSIUM S/P/B 3.9 3.5 - 5.3 mmol/L [facility] CHLORIDE S/P/B 102 98 - 110 mmol/L [facility] CO2 29 20 - 32 mmol/L [facility] CALCIUM S/P/B 9.6 8.6 - 10.4 mg/dL [facility] TOTAL PROTEIN S/P/B 7.1 6.1 - 8.1 g/dL [facility] ALBUMIN S/P/B 4.2 3.6 - 5.1 g/dL [facility] GLOBULIN 2.9 1.9 - 3.7 g/dL (calc) [facility] ALBUMIN/GLOBULIN RATIO 1.4 1.0 - 2.5 (calc) [facility] BILIRUBIN TOTAL S/P/B 0.4 0.2 - 1.2 mg/dL [facility] ALKALINE PHOSPHATASE S/P/B 59 37 - 153 U/L [facility] AST 16 10 - 35 U/L [facility] ALT 20 6 - 29 U/L [facility] 10/21/2020 9:43 AM CDT 10/21/2020 9:46 AM CDT Narrative [facility] - 10/22/2020 4:12 AM CDT FASTING:YES FASTING: YES us Keyonna [facility] Final Resul t [facility] [address] [address] * TSH W/REFLEX (10/21/2020 9:43 AM CDT) [...] t [facility] [address] [place] [address] * (ABNORMAL) LIPID PANEL (10/21/2020 9:43 AM [...] LDL-C. Deep GREER et al. JAMAR. 2013;310(19): 7852-5845 (http://education.[employer]/faq/DOH968) CHOL/HDL RATIO 3.5 <5.0 (calc) [facility] [...] t [facility] [address] [address] * (ABNORMAL) CBC W/DIFF AUTOMATED (10/21/2020 9:43 [...] t [facility] [address] [place] [address] documented in this encounter Visit Diagnoses Diagnosis Obstructive sleep apnea- Primary Obstructive sleep apnea (adult) (pediatric) Essential hypertension Unspecified essential hypertension Class 3 severe obesity due to excess calories with serious comorbidity and body mass index (BMI) of 50.0 to 59.9 in adult ([facility]) Gastroesophageal reflux disease, unspecified whether esophagitis present Dyslipidemia Other and unspecified hyperlipidemia Anxiety Anxiety state, unspecified Recurrent major depressive disorder, in partial remission ([facility]) Primary insomnia Persistent disorder of initiating or maintaining sleep BMI 45.0-49.9, adult ([facility]) Body Mass Index 45.0-49.9, adult Eustachian tube dysfunction, right Adenoma of left adrenal gland Benign neoplasm of adrenal gland documented in this encounter Additional Health Concerns Assessment Noted Time PHQ-9 Depression Total Score: 22 07/29/ 020 3:46 PM DOCUMENT SCANNER documented as of this encounter Care Teams Asset Accountant Relationship Specialty Start Date End Date Keyonna Arsmtrong APNP [address] [place] [address] PCP - General NURSE PRACTITIONER 05/06/18 documented as of this encounter
--- OUTSIDE RECORDS SUMMARY | 2024-07-11 00:13 | XMS_ITS | Encounter Summary ---
Author Organization [facility] Address [address] [place] [address]. [place], [place] [address] [place] [address] Care Team Providers Care Tie Layer Name Role Phone Keyonna Armstrong Primary Care Provider [phone] Encounter Details Date Type Department Care Team [...] CDT Gender Identity Female 07/17/2022 10:27 AM TIRE WORKER Sexual Orientation Straight 07/17/2022 10 :27 AM TIRE WORKER documented as of this encounter Plan of Treatment Upcoming Encounters Date Type Department Care Team (Late st Contact Info) Description 07/25/2024 10:00 AM TIRE WORKER Office Visit [facility] Family & Internal Medicine - [place] [address] [place] [address] Keyonna Armstrong APNP [address] [place] [address] 07/31/2024 10:15 AM TIRE WORKER Office Visit [facility] THREE [facility] [place] [address] [place] [address] Pepe Mitchell MD Three [facility]. [place] [address] [place] [address] documented as of this encounter Visit Diagnoses Not on filedocumented in this encounter Additional Health Concerns Assessment Noted Time PHQ-9 Depression Total Score: 22 020 3:46 PM TIRE WORKER documented as of this encounter Care Teams Tie Layer Relationship Specialty Start Date End Date Keyonna Armstrong APNP [address] [place] [address] PCP - General NURSE PRACTITIONER 05/06/18 documented as of this encounter
--- OUTSIDE RECORDS SUMMARY | 2024-07-11 00:13 | XMS_ITS | Encounter Summary ---
Author Organization [facility] Address [address] [place] [address]. [place], [place] [address] [place] [address] Care Team Providers Care Chain Person Name Role Phone Keyonna Armstrong Primary Care Provider [phone] Encounter Details Date Type Department Care Team [...] Gender Identity Female 07/17/2022 10:27 AM MAIL DELIVERY SUPERVISOR Sexual Orientation Straight 07/17/2022 10 :27 AM MAIL DELIVERY SUPERVISOR documented as of this encounter Plan of Treatment Upcoming Encounters Date Type Department Care Team ( Contact Info) Description 07/25/2024 10:00 AM MAIL DELIVERY SUPERVISOR Office Visit [facility] Family & Internal Medicine [address] [address] Keyonna Armstrong APNP [address] [place] [address] 07/31/2024 10:15 AM MAIL DELIVERY SUPERVISOR Office Visit [facility] THREE [facility] [place] [address] [place] [address] Pepe Mitchell MD Three [facility]. [facility] [address] [place] [address] documented as of this encounter Visit Diagnoses Not on filedocumented in this encounter Additional Health Concerns Assessment Noted Time PHQ-9 Depression Total Score: 22 020 3:46 PM MAIL DELIVERY SUPERVISOR documented as of this encounter Care Teams Chain Person Relationship Specialty Start Date End Date Keyonna Armstrong APNP [address] [place] [address] PCP - General NURSE PRACTITIONER 05/06/18 documented as of this encounter
--- OUTSIDE RECORDS SUMMARY | 2024-07-11 00:13 | XMS_ITS | Encounter Summary ---
Author Organization [facility] Address [address] [place] [address]. [place], [place] [address] [place] [address] Care Team Providers Care Second Chef Name Role Phone Keyonna Armstrong Primary Care Provider [phone] Encounter Details Date Type Department Care Team [...] CDT Gender Identity Female 07/17/2022 10:27 AM FINAL CLEANER Sexual Orientation Straight 07/17/2022 10 :27 AM FINAL CLEANER documented as of this encounter Plan of Treatment Upcoming Encounters Date Type Department Care Team ( Contact Info) Description 07/25/2024 10:00 AM FINAL CLEANER Office Visit [facility] Family & Internal Medicine [address] [address] Keyonna Armstrong APNP [address] [place] [address] 07/31/2024 10:15 AM FINAL CLEANER Office Visit [facility] THREE [facility] [address] [place] [address] Pepe Mitchell MD Three [facility]. [facility] [address] [place] [address] documented as of this encounter Visit Diagnoses Not on filedocumented in this encounter Additional Health Concerns Assessment Noted Time PHQ-9 Depression Total Score: 22 020 3:46 PM FINAL CLEANER documented as of this encounter Care Teams Second Chef Relationship Specialty Start Date End Date Keyonna Armstrong APNP [address] [place] [address] PCP - General NURSE PRACTITIONER 05/06/18 documented as of this encounter
--- OUTSIDE RECORDS SUMMARY | 2024-07-11 00:13 | XMS_ITS | Encounter Summary ---
Author Organization [facility] Address [address] [place] [address]. [place], [place] [address] [place] [address] Care Team Providers Care [employer] Librarian Name Role Phone Keyonna Armstrong Primary Care Provider [phone] Reason for Visit * Reason Comments Mammogram [...] CDT Gender Identity Female 07/17/2022 10:27 AM MRI TECHNICIAN Sexual Orientation Straight 07/17/2022 10 :27 AM MRI TECHNICIAN documented as of this encounter Plan of Treatment Upcoming Encounters Date Type Department Care Team ([facility] Contact Info) Description 07/25/2024 10:00 AM MRI TECHNICIAN Office Visit [facility] Family & Internal Medicine [address] [place] [address] Keyonna Armstrong APNP [address] [place] [address] 07/31/2024 10:15 AM MRI TECHNICIAN Office Visit [facility] [place] [address] [place] [address] Pepe Mitchell MD Three [facility]. [place] [address] [place] [address] documented as of this encounter Procedures Procedure [...] Depression Total Score: 22 020 3:46 PM MRI TECHNICIAN documented as of this encounter Care Teams [employer] Librarian Relationship Specialty Start Date End Date Keyonna Armstrong APNP [facility] [place] [address] PCP - General NURSE PRACTITIONER 05/06/18 documented as of this encounter
--- OUTSIDE RECORDS SUMMARY | 2024-07-11 00:14 | XMS_ITS | Encounter Summary ---
Author Organization [facility] Address [address] [place] [address]. [place], [place] [address] [place] [address] Care Team Providers Care Needle Felt Making Machine Operator Name Role Phone Keyonna Armstrong Primary Care Provider [phone] Reason for Visit * Reason Onset Date Comments Consult 08/20/2019 Encounter Details Date Type Department Care Team (Late st Contact Info) Description 08/20/2019 Telephone [facility] [address] Susi Parikh RMA Consult Social History Tobacco [...] CDT Gender Identity Female 07/17/2022 10:27 AM DIESEL DRAGLINE OPERATOR Sexual Orientation Straight 07/17/2022 10 :27 AM DIESEL DRAGLINE OPERATOR documented as of this encounter Progress Notes * TINO Knowles - 08/20/2019 9:42 AM CST Left message on for patient to schedule cardiology consult per Keyonna Armstrong NP (x2) EL DRAGLINE OPERATOR documented in this encounter Plan of Treatment Upcoming Encounters Date Type Department Care Team (Late st Contact Info) Description 07/25/2024 10:00 AM DIESEL DRAGLINE OPERATOR Office Visit [facility] Family & Internal Medicine - [place] [address] [place] [address] Keyonna Armstrong APNP [address] [place] [address] 07/31/2024 10:15 AM DIESEL DRAGLINE OPERATOR Office Visit [facility] THREE [facility], [facility] [address] [place], [place] [phone] Pepe Mitchell MD Three [facility]. [facility] [address] [place], [place] [phone] documented as of this encounter Visit Diagnoses Not on filedocumented in this encounter Additional Health Concerns Assessment Noted Time PHQ-9 Depression Total Score: 22 020 3:46 PM DIESEL DRAGLINE OPERATOR documented as of this encounter Care Teams Needle Felt Making Machine Operator Relationship Specialty Start Date End Date Keyonna Armstrong APNP [address] [place] [address] PCP - General NURSE PRACTITIONER 05/06/18 documented as of this encounter
--- OUTSIDE RECORDS SUMMARY | 2024-07-11 00:14 | XMS_ITS | Encounter Summary ---
Author Organization [facility] Address [address] [place] [address]. [place], [place] [address] [place] [address] Care Team Providers Care Animal Trapper Name Role Phone Keyonna Armstrong Primary Care Provider [phone] Reason for Visit * Reason Onset Date Comments Consult 08/07/2019 Encounter Details Date Type Department Care Team (Late st Contact Info) Description 08/07/2019 Telephone [facility] [place] [address] [facility] [address] [place] [address] [place], [place] [phone] Bairon Espinosa MD 3 [facility] [address] [place] [address] Consult Social History Tobacco Use [...] Gender Identity Female 07/17/2022 10:27 AM STORAGE MANAGER Sexual Orientation Straight 07/17/2022 10 :27 AM STORAGE MANAGER documented as of this encounter Progress Notes * TINO Knowles - 08/07/2019 4:26 PM CST Left message on for patient to schedule cardiology consult per Keyonna Armstrong NP (x1) AGE MANAGER documented in this encounter Plan of Treatment Upcoming Encounters Date Type Department Care Team (Late st Contact Info) Description 07/25/2024 10:00 AM STORAGE MANAGER Office Visit [facility] Family & Internal Medicine - [place] [address] [place] [address] Keyonna Armstrong APNP [address] [place] [address] 07/31/2024 10:15 AM STORAGE MANAGER Office Visit [facility] THREE [facility], [facility] [address] [place], [place] [phone] Pepe Mitchell MD Three [facility]. [facility] [address] [place], [place] [phone] documented as of this encounter Visit Diagnoses Not on filedocumented in this encounter Additional Health Concerns Assessment Noted Time PHQ-9 Depression Total Score: 22 020 3:46 PM STORAGE MANAGER documented as of this encounter Care Teams Animal Trapper Relationship Specialty Start Date End Date Keyonna Armstrong APNP [address] [place] [address] PCP - General NURSE PRACTITIONER 05/06/18 documented as of this encounter
--- OUTSIDE RECORDS SUMMARY | 2024-07-11 00:14 | XMS_ITS | Encounter Summary ---
Author Organization [facility] Address [address] [place] [address]. [place], [place] [address] [place] [address] Care Team Providers Care Bilingual Sales Consultant Name Role Phone Keyonna Armstrong Primary Care Provider [phone] Reason for Visit * Reason Comments Other Here for head and ch est congestion. Feels tired and run down. Encounter Details Date Type Department Care Team (Late st Contact Info) Description 07/24/2019 4:20 PM PRECINCT POLICE LIEUTENANT Office Visit [facility] Family and Sports Medicine [address] [address] Marge Mc, DO Other (Here for head [...] CDT Gender Identity Female 07/17/2022 10:27 AM PRECINCT POLICE LIEUTENANT Sexual Orientation Straight 07/17/2022 10 :27 AM PRECINCT POLICE LIEUTENANT documented as of this encounter Last Filed Vital Signs Vital Sign Reading Time Taken Comments Blood Pressure 134/76 07/24/2019 4:39 PM PRECINCT POLICE LIEUTENANT Pulse 149 07/24/2019 4:39 PM PRECINCT POLICE LIEUTENANT Temperature 36.5 ??C (97.7 ??F) 07/24/2019 4:39 PM CS T Respiratory Rate - - Oxygen Saturation 95% 07/24/2019 4:39 PM PRECINCT POLICE LIEUTENANT Inhaled Oxygen Concentration - - Weight 138.3 kg (305 lb) 07/24/2019 4:39 PM PRECINCT POLICE LIEUTENANT Height - - Body Mass Index 52.35 [...] MORNING AND THEN TAKE 2 TABLETS AT [id number] tablet 0 ??? METHOCARBAMOL 750 MG Tab [...] spent counseling and coordinating. MARGE MC DO INCT POLICE LIEUTENANT documented in this encounter Plan of Treatment Upcoming Encounters Date Type Department Care Team (Late st Contact Info) Description 07/25/2024 10:00 AM PRECINCT POLICE LIEUTENANT Office Visit [facility] Family & Internal Medicine - [address] [address] Keyonna Armstrong APNP [address] [place] [address] 07/31/2024 10:15 AM PRECINCT POLICE LIEUTENANT Office Visit [facility] THREE [facility] [address] [place] [address] Pepe Mitchell MD [facility]. [facility] [address] [place] [address] documented as of this encounter Procedures Procedure Name Priority Date/Time Associated Diagnosis Comments ELECTROCARDIOGRAM, COMPLETE Routine 08/13/2019 9:41 AM PRECINCT POLICE LIEUTENANT Tachycardia documented in this encounter Results * ELECTROCARDIOGRAM, COMPLETE (08/13/2019 9:41 AM PRECINCT POLICE LIEUTENANT) Marge Mc DO PROCEDURES-RESULTABLE Fin al Result documented in this encounter Visit Diagnoses Diagnosis Tachycardia- Primary Tachycardia, unspecified Body aches Generalized pain Depression with anxiety Dysthymic disorder documented in this encounter Additional Health Concerns Assessment Noted Time PHQ-9 Depression Total Score: 12 06/2 019 9:59 AM CDT documented as of this encounter Care Teams Bilingual Sales Consultant Relationship Specialty Start Date End Date Keyonna Armstrong APNP [address] [place] [address] PCP - General NURSE PRACTITIONER 05/06/18 documented as of this encounter
--- OUTSIDE RECORDS SUMMARY | 2024-07-11 00:14 | XMS_ITS | Encounter Summary ---
Author Organization [facility] Address [address] [place] [address]. [place] [id number] [place], [place] [id number] Care Team Providers Care Relish Blender Name Role Phone Keyonna Armstrong Primary Care Provider [phone] Reason for Visit * Reason Onset Date Comments Follow Up Call 09/10/2019 Encounter Details Date Type Department Care Team (Late st Contact Info) Description 09/10/2019 Telephone [facility] Medical Group Family & Internal [facility] [address] [place] [address] Keyonna Armstrong APNP [address] [place] [address] Follow Up Call Social History [...] CDT Gender Identity Female 07/17/2022 10:27 AM COMPLIANCE ENGINEER PRODUCTS Sexual Orientation Straight 07/17/2022 10 :27 AM COMPLIANCE ENGINEER PRODUCTS documented as of this encounter Progress Notes * Nenita Young MA - 09/15/2019 11:35 AM CST informed and v/u , he will have patient come sign ROSHAN LIANCE ENGINEER PRODUCTS * Nenita Young MA - 09/11/2019 5:33 PM CST Psych office called and informed me the ROSHAN MUST be signed for them to send records LIANCE ENGINEER PRODUCTS * Marcella Alvarenga MA - 09/11/2019 3:35 [...] on them and we will keep waiting. LIANCE ENGINEER PRODUCTS * Nenita Young MA - 09/11/2019 3:15 PM CST Patient needs to sign ROSHAN to be faxed to [phone]. lmtc LIANCE ENGINEER PRODUCTS LIANCE ENGINEER PRODUCTS * Sherlyn Omalley RN - 09/10/2019 3:07 PM CST Spoke to patient; verbalized understanding. She will have them fax over the records for psych. LIANCE ENGINEER PRODUCTS * YOBANI Cruz - 09/10/2019 1:54 PM CST Patient did drop off a letter and I was able to read it. She did indicate in her letter that all she wanted to do is try it. It is now legal in [place] and if so all she wants to [...] this the most legal wayI know how. LIANCE ENGINEER PRODUCTS * Sosa Brown CMA - 09/10/2019 12:03 PM CST is asking about there status of the paperwork for Medical cannabis card. They want to know if we are able to fill it out of not [place]. LIANCE ENGINEER PRODUCTS documented in this encounter Plan of Treatment Upcoming Encounters Date Type Department Care Team (Late st Contact Info) Description 07/25/2024 10:00 AM COMPLIANCE ENGINEER PRODUCTS Office Visit [facility] Medical Group Family & Internal [facility] [address] [place] [address] Keyonna Armstrong APNP [address] [place] [address] 07/31/2024 10:15 AM COMPLIANCE ENGINEER PRODUCTS Office Visit [facility] [address] [place], [place] [address] Pepe Mitchell MD [facility]. [facility] [address] [place] [address] documented as of this encounter Visit Diagnoses Not on filedocumented in this encounter Additional Health Concerns Assessment Noted Time PHQ-9 Depression Total Score: 22 020 3:46 PM COMPLIANCE ENGINEER PRODUCTS documented as of this encounter Care Teams Relish Blender Relationship Specialty Start Date End Date Keyonna Armstrong APNP [address] [place] [address] PCP - General NURSE PRACTITIONER 05/06/18 documented as of this encounter
--- OUTSIDE RECORDS SUMMARY | 2024-07-11 00:14 | XMS_ITS | Encounter Summary ---
Author Organization [facility] Address [facility]. [place], [place] [address] [place] [address] Care Team Providers Care Turbinated Bone Grinder Name Role Phone Keyonna Armstrong Primary Care Provider [phone] Reason for Visit * Reason Comments New Patient colonscopy screening * Consultation (Routine) - Closed Specialty Diagnoses / Procedures Referred By Contac t Referred To Contact GASTROENTEROLOGY Diagnoses Colon cancer screening Keyonna Armstrong APNP [address] [place] [address] Phone: tel: fax: Burt Payne MD [address] [address] Phone: tel: fax: Referral ID Status Reason Start Date Expiration Date Visits Re quested Visits Authorized [id number] Closed 08/08/2019 03/05/2020 7 7 Encounter Details Date Type Department Care Team (Latest Contact Info) Description 08/28/2019 1:00 PM RAMP LEAD Office Visit [facility] Medical Group Multispecialty Care - [facility] [address] [place] [address] Burt Payne MD 3 [facility] [address] [place] [address] Kendal Sebastian NP 3 [facility]. [place] [address] [place] [address] New Patient (colonscopy screening) Social History Tobacco [...] CDT Gender Identity Female 07/17/2022 10:27 AM RAMP LEAD Sexual Orientation Straight 07/17/2022 10 :27 AM RAMP LEAD documented as of this encounter Last Filed Vital Signs Vital Sign Reading Time Taken Comments Blood Pressure 110/62 08/28/2019 1:03 PM RAMP LEAD Pulse 87 08/28/2019 1:03 PM RAMP LEAD Temperature 36.5 ??C (97.7 ??F) 08/28/2019 1:03 PM CS T Respiratory Rate 20 08/28/2019 1:03 PM RAMP LEAD Oxygen Saturation 98% 08/28/2019 1:03 PM RAMP LEAD Inhaled Oxygen Concentration - - Weight 134.3 kg (296 lb) 08/28/2019 1:03 PM RAMP LEAD Height 165.1 cm (5' 5) 08/28/2019 1:03 PM RAMP LEAD Body Mass Index 49.26 08/28/2019 1:03 PM RAMP LEAD documented in this encounter Patient Instructions * Patient Instructions* Kendal Sebastian NP - 08/28/2019 1:00 PM RAMP LEAD Images from the original note were not included. Patient Education It is recommended to consume 20-35 grams of fiber per day and at least 64 ounces/2 liters of water per day. Below are the common foods with fiber content listed for you. This will help with normal bowel movements. ?? 2018 MWI. and/or its affiliates. All Rights Reserved. Amount [...] with added ascorbic acid 1 cup 0.5 Miller 1 cup 0.7 Vegetables Cooked Green beans 1 cup 4.0 Carrots 1/2 cup sliced 2.3 Peas 1 cup 8.8 Potato (baked, with skin) 1 medium potato 3.8 Raw [place] (with peel) 1 cucumber 1.5 Lettuce 1 [...] for Standard Reference. Available at http://www.nal.usda.gov/fnic/foodcomp/search/. Graphic 32343 Version 4.0 Patient Education Acid Reflux (Gastroesophageal [...] coffee grounds. Where can I learn more? [employer] https://familydoctor.org/condition/refluxacid-reflux/ NHS Choices https://www.nhs.uk/conditions/hgsfkjstm-fkr-npbu-reflux/ Last Reviewed Date 2018-08-27 Consumer Information Use [...] right for you. Copyright Copyright ?? 2019 [employer] and its affiliates and/or licensors. All rights reserved. LEAD documented in this encounter Progress Notes * [...] Recommendations and Plan: ?? Schedule Colonoscopy at [facility] ?? Suprep split prep ?? Stop [...] proceed as planned. Kendal Sebastian NP 08/28/2019 LEAD documented in this encounter Plan of Treatment Upcoming Encounters Date Type Department Care Team (Late st Contact Info) Description 07/25/2024 10:00 AM RAMP LEAD Office Visit [facility] Medical Group Family & Internal Medicine - [place] [address] [place] [address] Keyonna Armstrong APNP [address] [place] [address] 07/31/2024 10:15 AM RAMP LEAD Office Visit [facility], [facility] [address] [place] [address] Pepe Mitchell MD [facility]. [place] [address] [place] [address] documented as of this encounter Visit Diagnoses Diagnosis Screening for colon cancer- Primary Special screening for malignant neoplasms, colon Gastroesophageal reflux disease, esophagitis presence not specified documented in this encounter Additional Health Concerns Assessment Noted Time PHQ-9 Depression Total Score: 22 07/29/ 020 3:46 PM RAMP LEAD documented as of this encounter Care Teams Turbinated Bone Grinder Relationship Specialty Start Date End Date Keyonna Armstrong APNP [address] [place], [place] [id number] PCP - General NURSE PRACTITIONER 05/06/18 documented as of this encounter
--- OUTSIDE RECORDS SUMMARY | 2024-07-11 00:14 | XMS_ITS | Encounter Summary ---
Author Organization [facility] Address formerly [facility]. [place], [place] [address] [place] [address] Care Team Providers Care Woodworking Machine Feeder Name Role Phone Aracely Armstrong Primary Care Provider [phone] Reason for Referral * Consultation (Urgent) - Closed Specialty Diagnoses / Procedures Referred By Contac t Referred To Contact CARDIOLOGY / Cardiology Diagnoses Tachycardia Aracely Armstrong APNP [address] [place] [address] Phone: tel: fax: Bairon Espinosa MD [address] [place] [address] [place] [address] Phone: tel: fax: Referral ID Status Reason Start Date Expiration Date V isits Requested Visits Authorized [id number] Closed Specialty Services 07/31/2019 08/29/2020 1 1 AND DIE ENGINEER Reason for Visit * Reason Comments Depression Fatigue Encounter Details Date Type Department Care Team (Late st Contact Info) Description 07/29/2019 1:40 PM TOOL AND DIE ENGINEER Office Visit [facility] Medical Group Family & Internal Medicine - [place] [address] [place] [address] Aracely Armstrong APNP [address] [place], [place] [address] Depression; Fatigue Social History Tobacco Use Types [...] CDT Gender Identity Female 07/17/2022 10:27 AM TOOL AND DIE ENGINEER Sexual Orientation Straight 07/17/2022 10 :27 AM TOOL AND DIE ENGINEER documented as of this encounter Last Filed Vital Signs Vital Sign Reading Time Taken Comments Blood Pressure 132/88 07/29/2019 1:45 PM TOOL AND DIE ENGINEER Pulse 138 07/29/2019 1:45 PM TOOL AND DIE ENGINEER Temperature 36.2 ??C (97.2 ??F) 07/29/2019 1:45 PM CS T Respiratory Rate 18 07/29/2019 1:45 PM TOOL AND DIE ENGINEER Oxygen Saturation 95% 07/29/2019 1:45 PM TOOL AND DIE ENGINEER Inhaled Oxygen Concentration - - Weight 139.3 kg (307 lb) 07/29/2019 1:45 PM TOOL AND DIE ENGINEER Height 162.6 cm (5' 4) 07/29/2019 1:45 PM TOOL AND DIE ENGINEER Body Mass Index 52.7 07/29/2019 1:45 PM TOOL AND DIE ENGINEER documented in this encounter Progress Notes * YOBANI Cruz - 07/29/2019 1:40 PM CSTAddended by: ARACELY ARMSTRONG on: 07/31/2019 06:45 PM Modules accepted: Orders AND DIE ENGINEER * YOBANI Cruz - 07/29/2019 1:40 PM CST Images from the original note were not included. [facility] FAMILY AND INTERNAL MEDICINE OFFICE VISIT Reason [...] without medical supervision. She was seen at [facility] on July 24, 2019 with complaints of [...] endocrinology. Follow-uptesting was ordered per patient's last mat cutter, but patient never followed through with having any of this testing done. Her initial mat cutter left at bedtime at bedtime so a new referral if not to have been initiated for new mat cutter. The last referral being placed in December [...] 04/02/2018 ??? Menorrhagia 04/02/2018 ??? Morbid obesity (CMS/[facility]) 09/23/2013 ??? Obstructive sleep apnea 08/02/2012 ??? [...] file Gets together: Not on file Attends buddhist service: Not on file Active member of [...] Recurrent major depressive disorder, in partial remission (CMS/[facility]) - TSH W/REFLEX; Future - TSH W/REFLEX [...] not an admission. PCP: YOBANI Cruz 07/31/2019 AND DIE ENGINEER AND DIE ENGINEER * YOBANI Cruz - 07/29/2019 1:40 PM [...] she is feeling and let me know. AND DIE ENGINEER documented in this encounter Plan of Treatment Upcoming Encounters Date Type Department Care Team (Late st Contact Info) Description 07/25/2024 10:00 AM TOOL AND DIE ENGINEER Office Visit [facility] Medical Group Family & Internal Medicine - [place] [address] [place] [address] Aracely Armstrong APNP [address] [place] [address] 07/31/2024 10:15 AM TOOL AND DIE ENGINEER Office Visit [facility] [address] [place], [place] [phone] Pepe Mitchell MD [facility]. [facility] [address] [place], [place] [phone] Scheduled Referrals Name Type Priority Associated Diagnoses Orde r Schedule Ambulatory referral to Cardiology, Adult (OTHER) Referral Routine Tachycardia Ordered: 07/31/2019 documented as of this encounter Procedures Procedure Name Priority Date/Time Associated Diagnosis Comments VENIPUNC ARM DRAW Routine 07/29/2019 3:1 5 PM TOOL AND DIE ENGINEER Anxiety Recurrent major depressive disorder, in partial remission Primary insomnia Tachycardia URINALYSIS WI REFLEX TO CULTURE Routine 07/29/2019 2:47 PM TOOL AND DIE ENGINEER Tachycardia TSH W/REFLEX Routine 07/29/2019 2:47 PM TOOL AND DIE ENGINEER Anxiety Recurrent major depressive disorder, in partial remission Primary insomnia Tachycardia COMPREHENSIVE METABOLIC PANEL Routine 07/29/2019 2:47 PM TOOL AND DIE ENGINEER Anxiety Tachycardia CBC W/DIFF AUTOMATED Routine 07/29/2019 2:47 PM TOOL AND DIE ENGINEER Tachycardia documented in this encounter Results * (ABNORMAL) URINALYSIS WI REFLEX TO CULTURE (07/29/2019 2:47 PM TOOL AND DIE ENGINEER) COLOR (U) YELLOW YELLOW [place] APPEARANCE SEMEN TURBID(A) CLEAR [place] SPECIFIC GRAVITY (U) 1.018 1.001 - 1.035 [place] PH (U) 6.0 5.0 - 8.0 [place] URINE GLUCOSE NEGATIVE NEGATIVE [place] BILIRUBIN (U) NEGATIVE NEGATIVE [place] KETONE (U) NEGATIVE NEGATIVE [place] BLOOD (U) NEGATIVE NEGATIVE [place] PROTEIN (U) NEGATIVE NEGATIVE [place] NITRITES NEGATIVE NEGATIVE [place] LEUKOCYTES (U) NEGATIVE NEGATIVE [place] WBC/HPF NONE SEEN < OR = 5 /HPF [place] RBC/HPF NONE SEEN < OR = 2 /HPF [place] SQUAMOUS EPITHELIAL (U) 6-10(A) < OR = 5 /HPF [place] BACTERIA (U) NONE SEEN NONE SEEN /HPF [place] HYALINE CASTS NONE SEEN NONE SEEN /LPF [place] REFLEX URINE CULTURE: NO CULTURE INDICATED [place] URINE SPECIMEN OBTAINED BY CLEAN CATCH PROCEDURE / Unknown 07/29/2019 2:47 PM TOOL AND DIE ENGINEER 07/29/2019 11:20 PM TOOL AND DIE ENGINEER Narrative Resulting Agency Comment Performing Organization Information: ?Site ID: ?Name: [facility] ?Address: [facility] [place] [address] ?Director: Josiah Jones Aracely [facility]INE ORDERABLES Final Resu lt Performing Organization Address [facility] de Phone Number [facility] [address] * TSH W/REFLEX (07/29/2019 2:47 PM TOOL AND DIE ENGINEER) TSH 1.59 mIU/L [facility] Comment: ?Reference Range ?> or = 20 Years ??0.40-4.50 ? Ranges ?First trimester ?0.26-2.66 ?Second trimester ?? 0.55-2.73 ?Third trimester ?0.43-2.91 07/29/2019 2:47 PM TOOL AND DIE ENGINEER 07/30/2019 4:30 AM TOOL AND DIE ENGINEER Narrative Resulting Agency Comment Performing Organization Information: ?Site ID: RICH ?Name: [facility] ?Address: [address] [place] [address] ?Director: Servando Cervantes D.O., MPH Aracely [facility] Final Resul t Performing Organization Address [facility] Co de Phone Number [facility] * (ABNORMAL) COMPREHENSIVE METABOLIC PANEL (07/29/2019 2:47 PM TOOL AND DIE ENGINEER) GLUCOSE 109(H) 65 - 99 mg/dL [facility] [...] approximately 13% higher for people identified as -[place]. EGFR NON-AFR. AMER. 81 > OR = [...] DIAGNOSTICS - [place] [facility] 07/29/2019 2:47 PM TOOL AND DIE ENGINEER 07/30/2019 4:30 AM TOOL AND DIE ENGINEER Narrative Resulting Agency Comment Performing Organization Information: ?Site ID: [place] ?Name: [facility] ?Address: [address] [address] ?Director: Servando Cervantes D.O., MPH us Aracely [facility] Final Resul t [facility] * (ABNORMAL) CBC W/DIFF AUTOMATED (07/29/2019 2:47 PM TOOL AND DIE ENGINEER) WBC 13.3(H) 3.8 - 10.8 Thousand /uL [...] DIAGNOSTICS - [place] 07/29/2019 2:47 PM TOOL AND DIE ENGINEER 07/30/2019 4:30 AM TOOL AND DIE ENGINEER Narrative Resulting Agency Comment Performing Organization Information: ?Site ID: [place] ?Name: [facility] ?Address: [address] [address] ?Director: Servando Cervantes D.O., MPH us Aracely [...] Total Score: 22 07/29/ 020 3:46 PM TOOL AND DIE ENGINEER documented as of this encounter Care Teams Woodworking Machine Feeder Relationship Specialty Start Date End Date Aracely Armstrong APNP [address] [place] [address] PCP - General NURSE PRACTITIONER 05/06/18 documented as of this encounter
--- OUTSIDE RECORDS SUMMARY | 2024-07-11 00:14 | XMS_ITS | Encounter Summary ---
Author Organization [facility] Address [address] [place] [address]. [place] [id number] [place] [address] Care Team Providers Care As400 Administrator Name Role Phone Keyonna Armstrong Primary Care Provider [phone] Reason for Visit * Reason Onset Date Comments Medication Problem 06/12/2019 Encounter Details Date Type Department Care Team (Late st Contact Info) Description 06/12/2019 Telephone [facility] Medical Group Family & Internal Medicine [facility] [address] [place] [address] Keyonna Armstrong APNP [address] [place] [address] Medication Problem Social History Tobacco [...] CDT Gender Identity Female 07/17/2022 10:27 AM LOGISTICS 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 Sexual Orientation Straight 07/17/2022 10 :27 AM LOGISTICS 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 documented as of this encounter Progress Notes * YOBANI Cruz - 06/16/2019 12:13 PM CST filled STICS 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 * Mariluz Tariq MA - 06/16/2019 9:49 AM CST Rx pended Med list updated STICS 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 * YOBANI Cruz - 06/13/2019 12:29 PM CST Can change back to IR dose-----however at her next follow up with me----we need to discuss a different daily med---so she just has to use the zolpidem PRN Zolpidem 10 mg, #30 no refills STICS 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 * Kel Solo MD - 06/12/2019 4:52 PM CST There are notes in her chart that she did not feel that cale was not working, not really sure where to go with this, she will need to wait for Keyonna to give further advice. STICS 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 * Mariluz Tariq MA - 06/12/2019 9:32 AM CST Accidentally sent to Keyonna rerouted to Dr. Solo per pt request. STICS 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 * Mariluz Tariq MA - 06/12/2019 9:28 [...] that I send this message to him. STICS 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 documented in this encounter Plan of Treatment Upcoming Encounters Date Type Department Care Team (Late st Contact Info) Description 07/25/2024 10:00 AM LOGISTICS 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 Office Visit [facility] Medical Group Family & Internal Medicine - [place] [address] [place] [address] Keyonna Armstrong APNP [address] [place] [address] 07/31/2024 10:15 AM LOGISTICS 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 Office Visit [facility], [facility] [address] [place] [address] Pepe Mitchell MD [facility]. [facility] [address] [place], [place] [phone] documented as of this encounter Visit Diagnoses Diagnosis Primary insomnia- Primary Persistent disorder of initiating or maintaining sleep documented in this encounter Additional Health Concerns Assessment Noted Time PHQ-9 Depression Total Score: 12 019 9:59 AM CDT documented as of this encounter Care Teams As400 Administrator Relationship Specialty Start Date End Date Keyonna Armstrong APNP [address] [place] [address] PCP - General NURSE PRACTITIONER 05/06/18 documented as of this encounter
--- OUTSIDE RECORDS SUMMARY | 2024-07-11 00:14 | XMS_ITS | Encounter Summary ---
Author Organization [facility] Address [address] [place] [address]. [place], [place] [address] [place] [address] Care Team Providers Care Manager Hydraulic Name Role Phone Keyonna Armstrong Primary Care Provider [phone] Reason for Visit * Reason Onset Date Comments Medication 10/30/2019 Encounter Details Date Type Department Care Team (Late st Contact Info) Description 10/30/2019 Telephone [facility] Medical Group Family & Internal Medicine [facility] [address] [place] [address] Keyonna Armstrong APNP [address] [place] [address] Medication Social History Tobacco Use [...] Gender Identity Female 07/17/2022 10:27 AM DIRECTOR PRODUCT MANAGEMENT Sexual Orientation Straight 07/17/2022 10 :27 AM DIRECTOR PRODUCT MANAGEMENT documented as of this encounter Progress Notes [...] Contact Info) Description 07/25/2024 10:00 AM DIRECTOR PRODUCT MANAGEMENT Office Visit [facility] Medical Group Family & Internal Medicine - [place] [address] [place] [address] Keyonna Armstrong APNP [address] [place] [address] 07/31/2024 10:15 AM DIRECTOR PRODUCT MANAGEMENT Office Visit [facility], [facility] [address] [place], [place] [phone] Pepe Mitchell MD Three [facility]. [facility] [address] [place] [address] documented as of this encounter Visit Diagnoses Not on filedocumented in this encounter Additional Health Concerns Assessment Noted Time PHQ-9 Depression Total Score: 22 020 3:46 PM DIRECTOR PRODUCT MANAGEMENT documented as of this encounter Care Teams Manager Hydraulic Relationship Specialty Start Date End Date Keyonna Armstrong APNP [address] [place] [address] PCP - General NURSE PRACTITIONER 05/06/18 documented as of this encounter
--- OUTSIDE RECORDS SUMMARY | 2024-07-11 00:14 | XMS_ITS | Encounter Summary ---
Author Organization [facility] Address [address] [place] [address]. [place], [place] [address] [place] [address] Care Team Providers Care Forepart Laster Name Role Phone Keyonna Armstrong Primary Care Provider [phone] Reason for Visit * Reason Onset Date Comments Forms 08/12/2019 Encounter Details Date Type Department Care Team (Late st Contact Info) Description 08/12/2019 Telephone [facility] Medical Group Family & Internal Medicine [facility] [address] [place] [address] Keyonna Armstrong APNP [address] [place] [address] Forms Social History Tobacco Use [...] CDT Gender Identity Female 07/17/2022 10:27 AM BRAIDER OPERATOR Sexual Orientation Straight 07/17/2022 10 :27 AM BRAIDER OPERATOR documented as of this encounter Progress Notes * Nenita Young MA - 08/12/2019 5:37 PM CST Patient notified and although not happy she v/u DER OPERATOR * YOBANI Cruz - 08/12/2019 5:22 PM [...] sign this paperwork. I am very sorry. DER OPERATOR * Indy Kang - 08/12/2019 1:41 PM [...] something else can be done about it. DER OPERATOR documented in this encounter Plan of Treatment Upcoming Encounters Date Type Department Care Team (Late st Contact Info) Description 07/25/2024 10:00 AM BRAIDER OPERATOR Office Visit [facility] Medical Group Family & Internal Medicine - [place] [address] [place] [address] Keyonna Armstrong APNP [address] [place] [address] 07/31/2024 10:15 AM BRAIDER OPERATOR Office Visit [facility], [facility] [address] [place] [address] Pepe Mitchell MD [facility]. [place] [address] [place] [address] documented as of this encounter Visit Diagnoses Not on filedocumented in this encounter Additional Health Concerns Assessment Noted Time PHQ-9 Depression Total Score: 22 07/29/ 020 3:46 PM BRAIDER OPERATOR documented as of this encounter Care Teams Forepart Laster Relationship Specialty Start Date End Date Keyonna Armstrong APNP [address] [place] [address] PCP - General NURSE PRACTITIONER 05/06/18 documented as of this encounter
--- OUTSIDE RECORDS SUMMARY | 2024-07-11 00:14 | XMS_ITS | Encounter Summary ---
Author Organization [facility] Address [address] [place] [address]. [place], [place] [address] [place] [address] Care Team Providers Care Gear Shaper Name Role Phone Keyonna Armstrong Primary Care Provider [phone] Reason for Visit * Reason Onset Date Comments Results 07/31/2019 Encounter Details Date Type Department Care Team (Late st Contact Info) Description 07/31/2019 Telephone [facility] Medical Group Family & Internal Medicine [facility] [address] [place] [address] Keyonna Armstrong APNP [address] [place] [address] Results Social History Tobacco Use [...] CDT Gender Identity Female 07/17/2022 10:27 AM BILLING DEPARTMENT SUPERVISOR Sexual Orientation Straight 07/17/2022 10 :27 AM BILLING DEPARTMENT SUPERVISOR documented as of this encounter Progress [...] to follow up appt on 08/06 with ING DEPARTMENT SUPERVISOR * Marcella Alvarenga MA - 08/01/2019 7:55 AM CST LMTC 08/01/18 ING DEPARTMENT SUPERVISOR * Marcella Alvarenga MA - 08/01/2019 7:54 AM CST ----- Message from YOBANI Cruz sent at 07/31/2019 6:24 PM BILLING DEPARTMENT SUPERVISOR ----- Let patient know that her CBC [...] she is feeling and let me know. ING DEPARTMENT SUPERVISOR * YOBANI Cruz - 07/31/2019 6:45 PM CST Please let pt know I have placed an urgent cardiology referral as well to eval her elevated HR. ING DEPARTMENT SUPERVISOR documented in this encounter Plan of Treatment Upcoming Encounters Date Type Department Care Team (Late st Contact Info) Description 07/25/2024 10:00 AM BILLING DEPARTMENT SUPERVISOR Office Visit [facility] Medical Group Family & Internal Medicine - [place] [address] [place] [address] Keyonna Armstrong APNP [address] [place], [place] [address] 07/31/2024 10:15 AM BILLING DEPARTMENT SUPERVISOR Office Visit [facility], [facility] [address] [place] [address] Pepe Mitchell MD Three [facility]. [facility] [address] [place] [address] documented as of this encounter Visit Diagnoses Not on filedocumented in this encounter Additional Health Concerns Assessment Noted Time PHQ-9 Depression Total Score: 22 020 3:46 PM BILLING DEPARTMENT SUPERVISOR documented as of this encounter Care Teams Gear Shaper Relationship Specialty Start Date End Date Keyonna Armstrong APNP [address] [place] [address] PCP - General NURSE PRACTITIONER 05/06/18 documented as of this encounter
--- OUTSIDE RECORDS SUMMARY | 2024-07-11 00:14 | XMS_ITS | Encounter Summary ---
Author Organization [facility] Address [address] [place] [address]. [place] [id number] [place] [address] Care Team Providers Care Bag Grader Name Role Phone Keyonna Armstrong Primary Care Provider [phone] Reason for Visit * Reason Comments Lab [...] Gender Identity Female 07/17/2022 10:27 AM MEDICAL REIMBURSEMENT SPECIALIST Sexual Orientation Straight 07/17/2022 10 :27 AM MEDICAL REIMBURSEMENT SPECIALIST documented as of this encounter Plan of Treatment Upcoming Encounters Date Type Department Care Team (Late st Contact Info) Description 07/25/2024 10:00 AM MEDICAL REIMBURSEMENT SPECIALIST Office Visit [facility] Medical Group Family & Internal Medicine - [address] [address] Keyonna Armstrong APNP [facility] [place] [address] 07/31/2024 10:15 AM MEDICAL REIMBURSEMENT SPECIALIST Office Visit [facility] THREE [facility], [place] [address] [place] [address] Pepe Mitchell MD Three [facility]. [facility] [address] [place] [address] documented as of this encounter Procedures Procedure Name Priority Date/Time Associated Diagnosis Comments OUTSIDE LAB (SCAN ORDER) Routine 08/26/2019 documented in this encounter Results * OUTSIDE LAB (08/26/2019) 08/26/2019 us Documents Scanned SCANNING Final Result [facility] documented in this encounter Visit Diagnoses Not on filedocumented in this encounter Additional Health Concerns Assessment Noted Time PHQ-9 Depression Total Score: 22 07/29/ 020 3:46 PM MEDICAL REIMBURSEMENT SPECIALIST documented as of this encounter Care Teams Bag Grader Relationship Specialty Start Date End Date Keyonna Armstrong APNP [address] [place] [address] PCP - General NURSE PRACTITIONER 05/06/18 documented as of this encounter
--- OUTSIDE RECORDS SUMMARY | 2024-07-11 00:14 | XMS_ITS | Encounter Summary ---
Author Organization [facility] Address [address] [place] [address]. [place], [place] [address] [place] [address] Care Team Providers Care Roofing Laborer Name Role Phone Keyonna Armstrong Primary Care Provider [phone] [phone] Encounter Details Date Type Department Care Team [...] CDT Gender Identity Female 07/17/2022 10:27 AM MULTILITH OPERATOR Sexual Orientation Straight 07/17/2022 10 :27 AM MULTILITH OPERATOR documented as of this encounter Plan of Treatment Upcoming Encounters Date Type Department Care Team (Late st Contact Info) Description 07/25/2024 10:00 AM MULTILITH OPERATOR Office Visit [facility] Medical Group Family & Internal Medicine - [place] [address] [place] [address] Keyonna Armstrong APNP [address] [place] [address] 07/31/2024 10:15 AM MULTILITH OPERATOR Office Visit [facility] THREE [facility], [place] [address] [place] [address] Pepe Mitchell MD Three [facility]. [facility] [address] [place] [address] documented as of this encounter Visit Diagnoses Not on filedocumented in this encounter Additional Health Concerns Assessment Noted Time PHQ-9 Depression Total Score: 22 020 3:46 PM MULTILITH OPERATOR documented as of this encounter Care Teams Roofing Laborer Relationship Specialty Start Date End Date Keyonna Armstrong APNP [address] [place] [address] PCP - General NURSE PRACTITIONER 05/06/18 documented as of this encounter
--- OUTSIDE RECORDS SUMMARY | 2024-07-11 00:14 | XMS_ITS | Encounter Summary ---
Author Organization [facility] Address [address] [place] [address]. [place], [place] [address] [place] [address] Care Team Providers Care Designer Name Role Phone Keyonna Armstrong Primary Care Provider [phone] Reason for Visit * Reason Onset Date Comments Schedule Surgery 09/17/2019 Encounter Details Date Type Department Care Team (Late st Contact Info) Description 09/17/2019 Telephone [facility] Medical Group Multispecialty Care - [facility] [address] [place] [address] Burt Payne MD 3 [facility] [place] [address] [place] [address] Schedule Surgery Social History Tobacco Use Types [...] Gender Identity Female 07/17/2022 10:27 AM REGULATOR TESTER Sexual Orientation Straight 07/17/2022 10 :27 AM REGULATOR TESTER documented as of this encounter Progress Notes * Sasha Richardson MA - 09/17/2019 1:45 PM CST Spoke with pt procedure rescheduled for 10/06/2019 @ 10:30am LATOR TESTER * Sasha Richardson MA - 09/17/2019 10:57 AM CST Called pt to reschedule procedure due to Dr. Payne being out tomorrow. LVM for pt to return call. LATOR TESTER documented in this encounter Plan of Treatment Upcoming Encounters Date Type Department Care Team (Late st Contact Info) Description 07/25/2024 10:00 AM REGULATOR TESTER Office Visit [facility] Medical Group Family & Internal Medicine [place] [address] [place] [address] Keyonna Armstrong APNP [address] [place] [address] 07/31/2024 10:15 AM REGULATOR TESTER Office Visit [facility] THREE [facility], [facility] [address] [place] [address] Pepe Mitchell MD Three [facility] [place] [facility]. [facility] [address] [place] [address] documented as of this encounter Visit Diagnoses Not on filedocumented in this encounter Additional Health Concerns Assessment Noted Time PHQ-9 Depression Total Score: 22 020 3:46 PM REGULATOR TESTER documented as of this encounter Care Teams Designer Relationship Specialty Start Date End Date Keyonna Armstrong APNP [address] [place] [address] PCP - General NURSE PRACTITIONER 05/06/18 documented as of this encounter
--- OUTSIDE RECORDS SUMMARY | 2024-07-11 00:14 | XMS_ITS | Encounter Summary ---
Author Organization [facility] Address [address] [place] [address]. [place], [place] [address] [place] [address] Care Team Providers Care Shop Fitter Name Role Phone Keyonna Armstrong Primary Care Provider [phone] Reason for Visit * Reason Onset Date Comments Reschedule 10/03/2019 Colonocopy on Encounter Details Date Type Department Care Team (Late st Contact Info) Description 10/03/2019 Telephone [facility] Medical Group Multispecialty Care - [facility] 3 [facility] [address] [place] [address] Burt Payne MD 3 [facility] [place] [address] [place] [address] Reschedule (Colonocopy on Sunday) Social History Tobacco [...] CDT Gender Identity Female 07/17/2022 10:27 AM OFFAL TRIMMER Sexual Orientation Straight 07/17/2022 10 :27 AM OFFAL TRIMMER documented as of this encounter Progress Notes [...] st Contact Info) Description 07/25/2024 10:00 AM OFFAL TRIMMER Office Visit [facility] Medical Group Family & Internal Medicine - [place] [address] [place] [address] Keyonna Armstrong APNP [address] [place] [address] 07/31/2024 10:15 AM OFFAL TRIMMER Office Visit [place] [facility] [facility] THREE [facility], [place] [address] [place], [place] [address] Pepe Mitchell MD Three [facility]. [place] [address] [place] [address] documented as of this encounter Visit Diagnoses Not on filedocumented in this encounter Additional Health Concerns Assessment Noted Time PHQ-9 Depression Total Score: 22 020 3:46 PM OFFAL TRIMMER documented as of this encounter Care Teams Shop Fitter Relationship Specialty Start Date End Date Keyonna Armstrong APNP [address] [place] [address] PCP - General NURSE PRACTITIONER 05/06/18 documented as of this encounter
--- OUTSIDE RECORDS SUMMARY | 2024-07-11 00:14 | XMS_ITS | Encounter Summary ---
Author Organization [facility] Address [address] [place] [address]. [place], [place] [address] [place] [address] Care Team Providers Care Filler Wiper Name Role Phone Keyonna Armstrong Primary Care Provider [phone] Encounter Details Date Type Department Care Team [...] Gender Identity Female 07/17/2022 10:27 AM MANAGER SUPPORT SERVICES Sexual Orientation Straight 07/17/2022 10 :27 AM MANAGER SUPPORT SERVICES documented as of this encounter Plan of Treatment Upcoming Encounters Date Type Department Care Team (Late st Contact Info) Description 07/25/2024 10:00 AM MANAGER SUPPORT SERVICES Office Visit [facility] Medical Group Family & Internal Medicine - [place] [address] [place] [address] Keyonna Armstrong APNP [address] [place] [address] 07/31/2024 10:15 AM MANAGER SUPPORT SERVICES Office Visit [place] [facility] THREE [facility], [place] [address] [place] [address] Pepe Mitchell MD Three [facility]. [place] [address] [place] [address] documented as of this encounter Visit Diagnoses Not on filedocumented in this encounter Additional Health Concerns Assessment Noted Time PHQ-9 Depression Total Score: 22 020 3:46 PM MANAGER SUPPORT SERVICES documented as of this encounter Care Teams Filler Wiper Relationship Specialty Start Date End Date Keyonna Armstrong APNP [address] [place] [address] PCP - General NURSE PRACTITIONER 05/06/18 documented as of this encounter
--- OUTSIDE RECORDS SUMMARY | 2024-07-11 00:14 | XMS_ITS | Encounter Summary ---
Author Organization [facility] Address [address] [place] [address]. [place] [id number] [place] [address] Care Team Providers Care Labor Relations Specialist Name Role Phone Keyonna Arsmtrong Primary Care Provider [phone] Reason for Visit * Reason Comments Follow Up Encounter Details Date Type Department Care Team (Late st Contact Info) Description 08/06/2019 11:20 AM COMPUTER RECYCLING WORKER Office Visit [facility] Medical Group Family & Internal Medicine [facility] [address] [place] [address] Keyonna Armstrong APNP [address] [place] [address] Follow Up Social History Tobacco [...] Gender Identity Female 07/17/2022 10:27 AM COMPUTER RECYCLING WORKER Sexual Orientation Straight 07/17/2022 10 :27 AM COMPUTER RECYCLING WORKER documented as of this encounter Last Filed Vital Signs Vital Sign Reading Time Taken Comments Blood Pressure 103/71 08/06/2019 11:42 AM COMPUTER RECYCLING WORKER Pulse 98 08/06/2019 11:42 AM COMPUTER RECYCLING WORKER Temperature 36.1 ??C (96.9 ??F) 08/06/2019 11:[address] Respiratory Rate 14 08/06/2019 11:42 AM COMPUTER RECYCLING WORKER Oxygen Saturation 97% 08/06/2019 11:42 AM COMPUTER RECYCLING WORKER Inhaled Oxygen Concentration - - Weight 139.7 kg (308 lb) 08/06/2019 11:42 AM COMPUTER RECYCLING WORKER Height 162.6 cm (5' 4) 08/06/2019 11:42 AM COMPUTER RECYCLING WORKER Body Mass Index 52.87 08/06/2019 11:42 AM COMPUTER RECYCLING WORKER documented in this encounter Progress Notes * YOBANI Cruz - 08/06/2019 11:20 AM CST Images from the original note were not included. [facility] FAMILY AND INTERNAL MEDICINE OFFICE VISIT [...] file Gets together: Not on file Attends jewish service: Not on file Active member of [...] not an admission. PCP: YOBANI Cruz 08/07/2019 UTER RECYCLING WORKER documented in this encounter Plan of Treatment Upcoming Encounters Date Type Department Care Team (Late st Contact Info) Description 07/25/2024 10:00 AM COMPUTER RECYCLING WORKER Office Visit [facility] Medical Group Family & Internal Medicine [address] [address] Keyonna Armstrong APNP [address] [place] [address] 07/31/2024 10:15 AM COMPUTER RECYCLING WORKER Office Visit [facility] THREE [facility], [place] [address] [place] [address] Pepe Mitchell MD Three [facility]. [place] [address] [place], [place] [phone] documented as of this encounter Visit Diagnoses Diagnosis Recurrent major depressive disorder, in partial remission (CMS/HCC)- Primary Anxiety Anxiety state, unspecified documented in this encounter Additional Health Concerns Assessment Noted Time PHQ-9 Depression Total Score: 22 020 3:46 PM COMPUTER RECYCLING WORKER documented as of this encounter Care Teams Labor Relations Specialist Relationship Specialty Start Date End Date Keyonna Armstrong APNP [address] [place] [address] PCP - General NURSE PRACTITIONER 05/06/18 documented as of this encounter
--- OUTSIDE RECORDS SUMMARY | 2024-07-11 00:14 | XMS_ITS | Encounter Summary ---
Author Organization [facility] Address [address] [place] [address]. [place], [place] [address] [place] [address] Care Team Providers Care Supervisor Gas Meter Repair Name Role Phone Keyonna Armstrong Primary Care Provider [phone] Reason for Visit * Reason Onset Date Comments Sleep Problem 05/08/2019 Encounter Details Date Type Department Care Team (Late st Contact Info) Description 05/08/2019 Telephone [facility] Medical Group Family & Internal Medicine [facility] [address] [place] [address] Keyonna Armstrong APNP [address] [place] [address] Sleep Problem Social History Tobacco [...] CDT Gender Identity Female 07/17/2022 10:27 AM FOREST ECONOMICS PROFESSOR Sexual Orientation Straight 07/17/2022 10 :27 AM FOREST ECONOMICS PROFESSOR documented as of this encounter Progress Notes [...] st Contact Info) Description 07/25/2024 10:00 AM FOREST ECONOMICS PROFESSOR Office Visit [facility] Medical Group Family & Internal Medicine - [place] [address] [place] [address] Keyonna Armstrong APNP [address] [place] [address] 07/31/2024 10:15 AM FOREST ECONOMICS PROFESSOR Office Visit [place] [facility] THREE [facility], [facility] [address] [place], [place] [address] Pepe Mitchell MD [facility]. [facility] [address] [place] [address] documented as of this encounter Visit Diagnoses Diagnosis Primary insomnia- Primary Persistent disorder of initiating or maintaining sleep Anxiety Anxiety state, unspecified documented in this encounter Additional Health Concerns Assessment Noted Time PHQ-9 Depression Total Score: 12 019 9:59 AM CDT documented as of this encounter Care Teams Supervisor Gas Meter Repair Relationship Specialty Start Date End Date Keyonna Armstrong APNP [facility] [place] [address] PCP - General NURSE PRACTITIONER 05/06/18 documented as of this encounter
--- OUTSIDE RECORDS SUMMARY | 2024-07-11 00:14 | XMS_ITS | Encounter Summary ---
Author Organization [facility] Address [address] [place] [address]. [place], [place] [address] [place] [address] Care Team Providers Care Stockroom Helper Name Role Phone Keyonna Armstrong Primary Care Provider [phone] Reason for Visit * Reason Onset Date Comments Consult 09/15/2019 Encounter Details Date Type Department Care Team (Late st Contact Info) Description 09/15/2019 Telephone [facility] [place] [address] Susi Parikh RMA Consult Social History Tobacco [...] CDT Gender Identity Female 07/17/2022 10:27 AM CHROME TANNING DRUM OPERATOR Sexual Orientation Straight 07/17/2022 10 :27 AM CHROME TANNING DRUM OPERATOR documented as of this encounter Progress Notes * TINO Knowles - 09/15/2019 8:49 AM CST No Conact to PCP We have tried to contact your patient by phone and by letter with no response. At this time, we will make no further attempts to contact your patient and we will return their care back to your office. ME TANNING DRUM OPERATOR documented in this encounter Plan of Treatment Upcoming Encounters Date Type Department Care Team (Late st Contact Info) Description 07/25/2024 10:00 AM CHROME TANNING DRUM OPERATOR Office Visit [facility] Medical Group Family & Internal Medicine - [place] [address] [place] [address] Keyonna Armstrong APNP [address] [place] [address] 07/31/2024 10:15 AM CHROME TANNING DRUM OPERATOR Office Visit [facility] [address] [facility], [facility] [address] [place] [address] Pepe Mitchell MD Three [facility]. [facility] [address] [place], [place] [address] documented as of this encounter Visit Diagnoses Not on filedocumented in this encounter Additional Health Concerns Assessment Noted Time PHQ-9 Depression Total Score: 22 020 3:46 PM CHROME TANNING DRUM OPERATOR documented as of this encounter Care Teams Stockroom Helper Relationship Specialty Start Date End Date Keyonna Armstrong APNP [address] [place] [address] PCP - General NURSE PRACTITIONER 05/06/18 documented as of this encounter
--- OUTSIDE RECORDS SUMMARY | 2024-07-11 00:14 | XMS_ITS | Encounter Summary ---
Author Organization [facility] Address [address] [place] [address]. [place], [place] [address] [place] [address] Care Team Providers Care Loin Puller Name Role Phone Keyonna Armstrong Primary Care Provider [phone] Reason for Visit * Reason Onset Date Comments Letter 08/11/2019 Encounter Details Date Type Department Care Team (Late st Contact Info) Description 08/11/2019 Telephone [facility] Medical Group Family & Internal Medicine [facility] [address] [place] [address] Keyonna Armstrong APNP [address] [place] [address] Letter Social History Tobacco Use [...] CDT Gender Identity Female 07/17/2022 10:27 AM CROP FARMERS Sexual Orientation Straight 07/17/2022 10 :27 AM CROP FARMERS documented as of this encounter Progress Notes * Sherlyn Omalley RN - 08/11/2019 2:59 PM CST Spoke to patient; verbalized understanding. FARMERS * YOBANI Cruz - 08/11/2019 1:48 PM CST I usually fill out a form brought in by pt. Form is from the state with specific diagnoses that warrant medical marijuana. Unfortunately, I as a JUICE STANDARDIZER, am unable to sign these forms. FARMERS * Lupe Dorado - 08/11/2019 1:27 PM [...] like us to call and talk to [employer] in [place] to write a similar letter. She stated that she is needing this letter by Sunday. FARMERS documented in this encounter Plan of Treatment Upcoming Encounters Date Type Department Care Team (Late st Contact Info) Description 07/25/2024 10:00 AM CROP FARMERS Office Visit [facility] Medical Group Family & Internal Medicine - [place] [address] [place] [address] Keyonan Armstrong APNP [address] [place] [address] 07/31/2024 10:15 AM CROP FARMERS Office Visit [facility] THREE [facility], [facility] [address] [place], [place] [phone] Pepe Mitchell MD Three [facility]. [facility] [address] [place] [address] documented as of this encounter Visit Diagnoses Not on filedocumented in this encounter Additional Health Concerns Assessment Noted Time PHQ-9 Depression Total Score: 22 020 3:46 PM CROP FARMERS documented as of this encounter Care Teams Loin Puller Relationship Specialty Start Date End Date Keyonna Armstrong APNP [address] [place] [address] PCP - General NURSE PRACTITIONER 05/06/18 documented as of this encounter
--- OUTSIDE RECORDS SUMMARY | 2024-07-11 00:14 | XMS_ITS | Encounter Summary ---
Author Organization [facility] Address [address] [place] [address]. [place] [id number] [place], [place] [id number] Care Team Providers Care Truckload Checker Name Role Phone Keyonna Armstrong Primary Care Provider [phone] Reason for Visit * Reason Onset Date Comments Refill Request 05/12/2019 Encounter Details Date Type Department Care Team (Late st Contact Info) Description 05/12/2019 Telephone [facility] Medical Group Family & Internal Medicine [facility] [address] [place] [address] Keyonna Armstrong APNP [address] [place], [place] [phone] Refill Request Social History Tobacco Use Types [...] CDT Gender Identity Female 07/17/2022 10:27 AM GASKET MAKER Sexual Orientation Straight 07/17/2022 10 :27 AM GASKET MAKER documented as of this encounter Progress [...] st Contact Info) Description 07/25/2024 10:00 AM GASKET MAKER Office Visit [facility] Medical Group Family & Internal Medicine - [place] [address] [place] [address] Keyonna Armstrong APNP [address] [place] [address] 07/31/2024 10:15 AM GASKET MAKER Office Visit [facility] THREE [facility], [place] [address] [place], [place] [phone] Pepe Mitchell MD Three [facility]. [facility] [address] [place], [place] [address] documented as of this encounter Visit Diagnoses Diagnosis Anxiety Anxiety state, unspecified documented in this encounter Additional Health Concerns Assessment Noted Time PHQ-9 Depression Total Score: 12 019 9:59 AM CDT documented as of this encounter Care Teams Truckload Checker Relationship Specialty Start Date End Date Keyonna Armstrong APNP [address] [place] [address] PCP - General NURSE PRACTITIONER 05/06/18 documented as of this encounter
--- OUTSIDE RECORDS SUMMARY | 2024-07-11 00:14 | XMS_ITS | Encounter Summary ---
Author Organization [facility] Address [address] [place] [address]. [place] [id number] [place] [address] Care Team Providers Care Casting Inspector Name Role Phone Keyonna Armstrong Primary Care Provider [phone] Reason for Visit * Reason Onset Date Comments Advise 07/25/2019 Encounter Details Date Type Department Care Team (Late st Contact Info) Description 07/25/2019 Telephone [facility] Medical Group Family & Internal Medicine [facility] [address] [place] [address] Keyonna Armstrong APNP [address] [place] [address] Advise Social History Tobacco Use [...] CDT Gender Identity Female 07/17/2022 10:27 AM ARMATURE WINDER REPAIR HELPER Sexual Orientation Straight 07/17/2022 10 :27 AM ARMATURE WINDER REPAIR HELPER documented as of this encounter Progress Notes * Sherlyn Omalley RN - 07/28/2019 9:41 AM CST Spoke to patient's , Miguel; verbalized understanding. TURE WINDER REPAIR HELPER * Zita Cook MA - 07/25/2019 4:02 PM CST [facility] 07/25/2019 Keyonna mentioned patient should calll and try to get in with Anaid Nguyen, ANP (psychiatry) may be able to get patient in quickly. [phone]. TURE WINDER REPAIR HELPER * YOBANI Cruz - 07/25/2019 3:53 PM [...] for a list of mental health providers. TURE WINDER REPAIR HELPER * Zita Cook MA - 07/25/2019 2:52 PM CST Miguel informed and v/u. Patient is also asking for a refill of Lorazepam. She states that 15 pills will last her until Sunday. rx pend for approval Last filled 07/09/2019 [facility] TURE WINDER REPAIR HELPER * YOBANI Cruz - 07/25/2019 2:18 PM CST She needs to follow up or go to ER over weekend if symptoms worsen. TURE WINDER REPAIR HELPER * Lupe Dorado - 07/25/2019 9:40 AM [...] worried that she is not doing thiscorrectly. TURE WINDER REPAIR HELPER documented in this encounter Plan of Treatment Upcoming Encounters Date Type Department Care Team (Late st Contact Info) Description 07/25/2024 10:00 AM ARMATURE WINDER REPAIR HELPER Office Visit [facility] Medical Group Family & Internal Medicine - [place] [address] [place] [address] Keyonna Armstrnog APNP [address] [place] [address] 07/31/2024 10:15 AM ARMATURE WINDER REPAIR HELPER Office Visit [facility] THREE [facility], [facility] [address] [place], [place] [address] Pepe Mitchell MD [facility]. [facility] [address] [place] [address] documented as of this encounter Visit Diagnoses Diagnosis Anxiety Anxiety state, unspecified documented in this encounter Additional Health Concerns Assessment Noted Time PHQ-9 Depression Total Score: 12 01/14/ 019 9:59 AM CDT documented as of this encounter Care Teams Casting Inspector Relationship Specialty Start Date End Date Keyonna Armstrong APNP [place] [address] PCP - General NURSE PRACTITIONER 05/06/18 documented as of this encounter
--- OUTSIDE RECORDS SUMMARY | 2024-07-11 00:14 | XMS_ITS | Encounter Summary ---
Author Organization [facility] Address [address] [place] [address]. [place], [place] [address] [place] [address] Care Team Providers Care Case Technician Name Role Phone Keyonna Armstrong Primary Care Provider [phone] Encounter Details Date Type Department Care Team [...] CDT Gender Identity Female 07/17/2022 10:27 AM FRAME STRIPPER AND CRUSHER Sexual Orientation Straight 07/17/2022 10 :27 AM FRAME STRIPPER AND CRUSHER documented as of this encounter Plan of Treatment Upcoming Encounters Date Type Department Care Team (Late st Contact Info) Description 07/25/2024 10:00 AM FRAME STRIPPER AND CRUSHER Office Visit [facility] Medical Group Family & Internal Medicine - [place] [address] [place] [address] Keyonna Armstrong APNP [address] [place] [address] 07/31/2024 10:15 AM FRAME STRIPPER AND CRUSHER Office Visit [facility] THREE [facility], [place] [address] [place] [address] Pepe Mitchell MD Three [facility]. [facility] [address] [place] [address] documented as of this encounter Visit Diagnoses Not on filedocumented in this encounter Additional Health Concerns Assessment Noted Time PHQ-9 Depression Total Score: 12 019 9:59 AM CDT documented as of this encounter Care Teams Case Technician Relationship Specialty Start Date End Date Keyonna Armstrong APNP [address] [place] [address] PCP - General NURSE PRACTITIONER 05/06/18 documented as of this encounter
--- OUTSIDE RECORDS SUMMARY | 2024-07-11 00:14 | XMS_ITS | Encounter Summary ---
Author Organization [facility] Address [address] [place] [address]. [place], [place] [address] [place] [address] Care Team Providers Care Railcar Brake Operator Name Role Phone Keyonna Armstrong Primary Care Provider [phone] Reason for Visit * Reason Onset Date Comments Question 08/25/2019 Encounter Details Date Type Department Care Team (Late st Contact Info) Description 08/25/2019 Telephone [facility] Medical Group Multispecialty Care - [facility] [address] [facility] [address] [place] [address] Burt Payne MD 3 [facility] [address] [place], [place] [address] Question Social History Tobacco Use Types Packs/Day [...] CDT Gender Identity Female 07/17/2022 10:27 AM EXHIBITS MANAGER Sexual Orientation Straight 07/17/2022 10 :27 AM EXHIBITS MANAGER documented as of this encounter Progress Notes * Vernell Masters - 08/25/2019 3:00 PM CST Left a voicemail message for pt to give the office a call. She is scheduled for an appt with Dr. Payne on 08/28. GARDEN CENTER MANAGER Kendal can see her that morning if she would like. BITS MANAGER documented in this encounter Plan of Treatment Upcoming Encounters Date Type Department Care Team (Late st Contact Info) Description 07/25/2024 10:00 AM EXHIBITS MANAGER Office Visit [facility] Medical Group Family & Internal Medicine - [place] [address] [place] [address] Keyonna Armstrong APNP [address] [place] [address] 07/31/2024 10:15 AM EXHIBITS MANAGER Office Visit [facility] THREE [facility], [facility] [address] [place] [address] Pepe Mitchell MD Three [facility]. [facility] [address] [place] [address] documented as of this encounter Visit Diagnoses Not on filedocumented in this encounter Additional Health Concerns Assessment Noted Time PHQ-9 Depression Total Score: 22 020 3:46 PM EXHIBITS MANAGER documented as of this encounter Care Teams Railcar Brake Operator Relationship Specialty Start Date End Date Keyonna Armstrong APNP [address] [place] [address] PCP - General NURSE PRACTITIONER 05/06/18 documented as of this encounter
--- OUTSIDE RECORDS SUMMARY | 2024-07-11 00:14 | XMS_ITS | Encounter Summary ---
Author Organization [facility] Address [address] [place] [address]. [place], [place] [address] [place] [address] Care Team Providers Care Rubber Extrusion Machine Operator Name Role Phone Keyonna Armstrong Primary Care Provider [phone] Reason for Visit * Reason Onset Date Comments Consult 08/28/2019 Encounter Details Date Type Department Care Team (Late st Contact Info) Description 08/28/[address] [facility] [address] Susi Parikh RMA Consult Social History Tobacco [...] CDT Gender Identity Female 07/17/2022 10:27 AM SPECIAL SERVICES SUPERVISOR Sexual Orientation Straight 07/17/2022 10 :27 AM SPECIAL SERVICES SUPERVISOR documented as of this encounter Progress Notes * TINO Knowles - 08/28/2019 10:27 AM CST Several messages left (x3) for cardiology consult per Keyonna Armstrong NP with no response. Will sendletter to patient to contact our office for appointment. IAL SERVICES SUPERVISOR documented in this encounter Plan of Treatment Upcoming Encounters Date Type Department Care Team (Late st Contact Info) Description 07/25/2024 10:00 AM SPECIAL SERVICES SUPERVISOR Office Visit [facility] Medical Group Family & Internal Medicine - [place] [address] [place] [address] Keyonna Armstrong APNP [address] [place] [address] 07/31/2024 10:15 AM SPECIAL SERVICES SUPERVISOR Office [facility] THREE [facility], [facility] [address] [place], [place] [phone] Pepe Mitchell MD [facility]. [facility] [address] [place], [place] [phone] documented as of this encounter Visit Diagnoses Not on filedocumented in this encounter Additional Health Concerns Assessment Noted Time PHQ-9 Depression Total Score: 22 020 3:46 PM SPECIAL SERVICES SUPERVISOR documented as of this encounter Care Teams Rubber Extrusion Machine Operator Relationship Specialty Start Date End Date Keyonna Armstrong APNP [address] [place] [address] PCP - General NURSE PRACTITIONER 05/06/18 documented as of this encounter
--- OUTSIDE RECORDS SUMMARY | 2024-07-11 00:15 | XMS_ITS | Encounter Summary ---
Author Organization [facility] Address [facility] [place], [place] [address] [place] [address] Care Team Providers Care Single Pointed Operator Name Role Phone Keyonna Armstrong Primary Care Provider [phone] Reason for Referral * Consultation (Routine) - Closed Specialty Diagnoses / Procedures Referred By Contac t Referred To Contact HEMATOLOGY/ONCOLOGY Diagnoses Abnormal platelets ([facility]) Neutrophilia Keyonna Armstrong APNP [address] [place] [address] Phone: tel: fax: Brendan Lopez MD [address] [facility] [address] [place] [address] Phone: tel: fax: Referral ID Status Reason Start Date Expiration Date V isits Requested Visits Authorized [id number] Closed Specialty Services 05/21/2019 11/17/2019 6 6 Reason for Visit * Reason Onset Date Comments Lab Results 04/28/2019 Encounter Details Date Type Department Care Team (Late st Contact Info) Description 04/28/2019 Telephone [facility] Medical [facility] Family & Internal Medicine - [place] [address] [place] [address] Keyonna Armstrong APNP [address] [place], [place] [id number] Lab Results Social History Tobacco Use Types [...] CDT Gender Identity Female 07/17/2022 10:27 AM PROCESSING ENGINEER Sexual Orientation Straight 07/17/2022 10 :27 AM PROCESSING ENGINEER documented as of this encounter Progress [...] st Contact Info) Description 07/25/2024 10:00 AM PROCESSING ENGINEER Office Visit [facility] Medical Group Family & Internal Medicine - [place] [address] [place] [address] Keyonna Armstrong APNP [address] [place] [address] 07/31/2024 10:15 AM PROCESSING ENGINEER Office Visit [facility] THREE [facility], [address] [address] Pepe Mitchell MD [place] [address] [place] [address] Scheduled Referrals Name Type Priority Associated Diagnoses Orde r Schedule Ambulatory referral to Hematology/Oncology (OTHER) Referral Routine Abnormal platelets ([facility]) Neutrophilia Ordered: 04/28/2019 documented as of this encounter Visit Diagnoses Diagnosis 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
--- OUTSIDE RECORDS SUMMARY | 2024-07-11 00:15 | XMS_ITS | Encounter Summary ---
Author Organization [facility] Address [address] [place] [address]. [place], [place] [address] [place] [address] Care Team Providers Care Refrigeration Mechanic Helper Name Role Phone Keyonna Armstrong Primary Care Provider [phone] Encounter Details Date Type Department Care Team [...] CDT Gender Identity Female 07/17/2022 10:27 AM PRODUCT TEST ENGINEER Sexual Orientation Straight 07/17/2022 10 :27 AM PRODUCT TEST ENGINEER documented as of this encounter Plan of Treatment Upcoming Encounters Date Type Department Care Team (Late st Contact Info) Description 07/25/2024 10:00 AM PRODUCT TEST ENGINEER Office Visit [facility] Medical Group Family & Internal Medicine - [place] [address] [place] [address] Keyonna Armstrong APNP [address] [place] [address] 07/31/2024 10:15 AM PRODUCT TEST ENGINEER Office Visit [facility] THREE [facility], [place] [address] [place] [address] Pepe Mitchell MD Three [facility]. [place] [address] [place] [address] documented as of this encounter Visit Diagnoses Not on filedocumented in this encounter Additional Health Concerns Assessment Noted Time PHQ-9 Depression Total Score: 12 019 9:59 AM CDT documented as of this encounter Care Teams Refrigeration Mechanic Helper Relationship Specialty Start Date End Date Keyonna Armstrong APNP [address] [place] [address] PCP - General NURSE PRACTITIONER 05/06/18 documented as of this encounter
--- OUTSIDE RECORDS SUMMARY | 2024-07-11 00:15 | XMS_ITS | Encounter Summary ---
Author Organization [facility] Address [facility]. [place], [place] [address] [place] [address] Care Team Providers Care Web Knitter Name Role Phone Keyonna Armstrong Primary Care Provider [phone] Reason for Referral * Consultation (Routine) - Closed Specialty Diagnoses / Procedures Referred By Contac t Referred To Contact GASTROENTEROLOGY Diagnoses Colon cancer screening Keyonna Armstrong APNP [address] [place] [address] Phone: tel: fax: Burt Payne MD [address] [place] [address] Phone: tel: fax: Referral ID Status Reason Start Date Expiration Date Visits Re quested Visits Authorized [id number] Closed 08/08/2019 03/05/2020 7 7 * Imaging (Urgent) - Closed Specialty Diagnoses / Procedures Referred By Contac t Referred To Contact RADIOLOGY Diagnoses Breast cancer screening Procedures MG SCREENING CATALINA DIGI Keyonna Armstrong APNP [address] [place] [address] Phone: tel: fax: [place] [address] [place] [address] Phone: tel: fax: Referral ID Status Reason Start Date Expiration Date Visits Re quested Visits Authorized [id number] Closed 04/22/2019 04/22/2020 1 1 Reason for Visit * Reason Comments Sleep Problem Encounter Details Date Type Department Care Team (Late st Contact Info) Description 04/22/2019 2:00 PM CDT Office Visit [facility] Medical Group Family & Internal Medicine - [place] [address] [place] [address] Keyonna Armstrong APNP [address] [place] [address] Sleep Problem Social History Tobacco Use Types [...] CDT Gender Identity Female 07/17/2022 10:27 AM WET PROCESS OPERATOR Sexual Orientation Straight 07/17/2022 10 :27 AM WET PROCESS OPERATOR documented as of this encounter Last [...] from the original note were not included. [facility] FAMILY AND INTERNAL MEDICINE OFFICE VISIT [...] file Gets together: Not on file Attends catholic service: Not on file Active member [...] This Encounter ??? VENIPUNC ARM DRAW ??? [[id number]] Prevnar 13 (Pneumococcal) ??? [37902] FLU VACC QUAD 6 MONTHS+ 0.5 ML [...] st Contact Info) Description 07/25/2024 10:00 AM WET PROCESS OPERATOR Office Visit [facility] Medical Group Family & Internal Medicine - [place] [address] [place] [address] Keyonna Armstrong APNP [address] [place] [address] 07/31/2024 10:15 AM WET PROCESS OPERATOR Office Visit [facility] THREE [facility], [facility] [address] [place], [place] [phone] Pepe Mitchell MD [facility]. [facility] [address] [place], [place] [phone] Scheduled Orders Name Type Priority Associated Diagnoses [...] ?Site ID: [place] ?Name: Nely Hutchison ?Address: [facility] [place] [address] ?Director: Servando Cervantes D.O., MPH Keyonna [facility] [...] documented as of this encounter Care Teams Web Knitter Relationship Specialty Start Date End Date Keyonna Armstrong APNP [facility] [place] [address] PCP - General NURSE PRACTITIONER 05/06/18 documented as of this encounter
--- OUTSIDE RECORDS SUMMARY | 2024-07-11 00:15 | XMS_ITS | Encounter Summary ---
Author Organization [facility] Address [address] [place] [address]. [place], [place] [address] [place] [address] Care Team Providers Care Border Patrol Officer Name Role Phone Keyonna Armstrong Primary Care Provider [phone] Encounter Details Date Type Department Care Team [...] CDT Gender Identity Female 07/17/2022 10:27 AM WAREHOUSE DISTRIBUTION SPECIALIST Sexual Orientation Straight 07/17/2022 10 :27 AM WAREHOUSE DISTRIBUTION SPECIALIST documented as of this encounter Plan of Treatment Upcoming Encounters Date Type Department Care Team (Late st Contact Info) Description 07/25/2024 10:00 AM WAREHOUSE DISTRIBUTION SPECIALIST Office Visit [facility] Medical Group Family & Internal Medicine - [place] [address] [place] [address] Keyonna Armstrong APNP [address] [place] [address] 07/31/2024 10:15 AM WAREHOUSE DISTRIBUTION SPECIALIST Office Visit [facility] THREE [facility], [place] [address] [place] [address] Pepe Mitchell MD Three [facility]. [place] [address] [place] [address] documented as of this encounter Visit Diagnoses Not on filedocumented in this encounter Additional Health Concerns Assessment Noted Time PHQ-9 Depression Total Score: 12 019 9:59 AM CDT documented as of this encounter Care Teams Border Patrol Officer Relationship Specialty Start Date End Date Keyonna Armstrong APNP [address] [place] [address] PCP - General NURSE PRACTITIONER 05/06/18 documented as of this encounter
--- OUTSIDE RECORDS SUMMARY | 2024-07-11 00:15 | XMS_ITS | Encounter Summary ---
Author Organization [facility] Address [address] [place] [address]. [place] [phone] [place] [address] Care Team Providers Care Fresh Foods Clerk Name Role Phone Keyonna Armstrong Primary Care Provider [phone] Reason for Visit * Reason Onset Date Comments Refill Request 02/07/2019 Encounter Details Date Type Department Care Team (Late st Contact Info) Description 02/07/2019 Telephone [facility] Family & Internal [place] [address] [place] [address] Keyonna Armstrong APNP [address] [place], [place] [phone] Refill Request Social History Tobacco Use Types [...] Gender Identity Female 07/17/2022 10:27 AM RETAIL OPERATIONS MANAGER Sexual Orientation Straight 07/17/2022 10 :27 AM RETAIL OPERATIONS MANAGER documented as of this encounter Plan of Treatment Upcoming Encounters Date Type Department Care Team (Late st Contact Info) Description 07/25/2024 10:00 AM RETAIL OPERATIONS MANAGER Office Visit [facility] Family & Internal [address] [address] Keyonna Armstrong APNP [address] [place] [address] 07/31/2024 10:15 AM RETAIL OPERATIONS MANAGER Office [facility], [facility] [address] [place], [place] [address] Pepe Mitchell MD Three [facility]. [facility] [address] [place] [address] documented as of this encounter Visit Diagnoses Diagnosis BMI 50.0-59.9, adult ([facility]) Body Mass Index 50.0-59.9, adult documented in this encounter Additional Health Concerns Assessment Noted Time PHQ-9 Depression Total Score: 12 01/14/ 019 9:59 AM CDT documented as of this encounter Care Teams Fresh Foods Clerk Relationship Specialty Start Date End Date Keyonna Armstrong APNP [facility] [place] [address] PCP - General NURSE PRACTITIONER 05/06/18 documented as of this encounter
--- OUTSIDE RECORDS SUMMARY | 2024-07-11 00:15 | XMS_ITS | Encounter Summary ---
Author Organization [facility] Address [address] [place] [address]. [place] [phone] [place] [address] Care Team Providers Care Seafood Manager Name Role Phone Keyonna Armstrong Primary Care Provider [phone] Reason for Visit * Reason Comments Follow Up Encounter Details Date Type Department Care Team (Late st Contact Info) Description 02/04/2019 10:20 AM CDT Office Visit [facility] Medical Group Family & Internal Medicine [facility] [address] [place] [address] Keyonna Armstrong APNP [address] [place], [place] [phone] Follow Up Social History Tobacco Use Types [...] CDT Gender Identity Female 07/17/2022 10:27 AM THROUGH FREIGHT ENGINEER Sexual Orientation Straight 07/17/2022 10 :27 AM THROUGH FREIGHT ENGINEER documented as of this encounter Last [...] from the original note were not included. [facility] FAMILY AND INTERNAL MEDICINE [...] st Contact Info) Description 07/25/2024 10:00 AM THROUGH FREIGHT ENGINEER Office Visit [facility] Medical Group Family & Internal Medicine - [place] [address] [place] [address] Keyonna Armstrong APNP [address] [place] [address] 07/31/2024 10:15 AM THROUGH FREIGHT ENGINEER Office [facility], [facility] [address] [place], [place] [phone] Pepe Mitchell MD Three [facility]. [facility] [address] [place], [place] [phone] documented as of this encounter Procedures Procedure [...] Organization Information: ?Site ID: [place] ?Name: [facility] ?Address: [address] [place] [address] ?Director: Servando Cervantes D.O., MPH Keyonna [facility] Edited Resu lt - Final [facility] documented in this encounter Visit Diagnoses Diagnosis Anxiety- Primary Anxiety state, unspecified Recurrent major depressive disorder, in partial remission ([facility]) BMI 50.0-59.9, adult ([facility]) Body Mass Index 50.0-59.9, adult Abnormal CBC Other abnormal blood chemistry documented in this encounter Additional Health Concerns Assessment Noted Time PHQ-9 Depression Total Score: 12 019 9:59 AM CDT documented as of this encounter Care Teams Seafood Manager Relationship Specialty Start Date End Date Keyonna Armstrong APNP [address] [place] [address] PCP - General NURSE PRACTITIONER 10/15/18 documented as of this encounter
--- OUTSIDE RECORDS SUMMARY | 2024-07-11 00:15 | XMS_ITS | Encounter Summary ---
Author Organization [facility] Address [address] [place] [address]. [place], [place] [address] [place] [address] Care Team Providers Care Injection Molding Machine Offbearer Name Role Phone Keyonna Armstrong Primary Care Provider +1 [phone] Encounter Details Date Type Department Care Team [...] CDT Gender Identity Female 07/17/2022 10:27 AM ACID PUMP OPERATOR Sexual Orientation Straight 07/17/2022 10 :27 AM ACID PUMP OPERATOR documented as of this encounter Plan of Treatment Upcoming Encounters Date Type Department Care Team (Late st Contact Info) Description 07/25/2024 10:00 AM ACID PUMP OPERATOR Office Visit [facility] Medical Group Family & Internal Medicine - [place] [address] [place] [address] Keyonna Armstrong APNP [address] [place] [address] 07/31/2024 10:15 AM ACID PUMP OPERATOR Office Visit [facility] THREE [facility], [place] [address] [place] [address] Pepe Mitchell MD Three [facility]. [place] [address] [place] [address] documented as of this encounter Visit Diagnoses Not on filedocumented in this encounter Additional Health Concerns Assessment Noted Time PHQ-9 Depression Total Score: 12 019 9:59 AM CDT documented as of this encounter Care Teams Injection Molding Machine Offbearer Relationship Specialty Start Date End Date Keyonna Armstrong APNP [address] [place] [address] PCP - General NURSE PRACTITIONER 05/06/18 documented as of this encounter
--- OUTSIDE RECORDS SUMMARY | 2024-07-11 00:15 | XMS_ITS | Encounter Summary ---
Author Organization [facility] Address [address] [place] [address]. [place], [place] [address] [place] [address] Care Team Providers Care Caustic Mixer Name Role Phone Keyonna Armstrong Primary Care Provider +1 [phone] Encounter Details Date Type Department Care Team [...] Gender Identity Female 07/17/2022 10:27 AM CLINICAL IMPLEMENTATION SPECIALIST Sexual Orientation Straight 07/17/2022 10 :27 AM CLINICAL IMPLEMENTATION SPECIALIST documented as of this encounter Plan of Treatment Upcoming Encounters Date Type Department Care Team (Late st Contact Info) Description 07/25/2024 10:00 AM CLINICAL IMPLEMENTATION SPECIALIST Office Visit [facility] Medical Group Family & Internal Medicine - [place] [address] [place] [address] Keyonna Armstrong APNP [address] [place] [address] 07/31/2024 10:15 AM CLINICAL IMPLEMENTATION SPECIALIST Office Visit [place] [facility] THREE [facility], [place] [address] [place] [address] Pepe Mitchell MD Three [facility]. [place] [address] [place] [address] documented as of this encounter Visit Diagnoses Not on filedocumented in this encounter Additional Health Concerns Assessment Noted Time PHQ-9 Depression Total Score: 12 019 9:59 AM CDT documented as of this encounter Care Teams Caustic Mixer Relationship Specialty Start Date End Date Keyonna Armstrong APNP [address] [place] [address] PCP - General NURSE PRACTITIONER 05/06/18 documented as of this encounter
--- OUTSIDE RECORDS SUMMARY | 2024-07-11 00:15 | XMS_ITS | Encounter Summary ---
Author Organization [facility] Address [address] [place] [address]. [place], [place] [address] [place] [address] Care Team Providers Care Pharmacy Technician Instructor Name Role Phone Keyonna Armstrong Primary Care Provider [phone] Reason for Visit * Reason Onset Date Comments Lab Results 03/20/2019 Encounter Details Date Type Department Care Team (Late st Contact Info) Description 03/20/2019 Telephone [facility] Medical Group Family & Internal Medicine [facility] [address] [place] [address] Keyonna Armstrong APNP [address] [place] [address] Lab Results Social History Tobacco [...] CDT Gender Identity Female 07/17/2022 10:27 AM INK GRINDER Sexual Orientation Straight 07/17/2022 10 :27 AM INK GRINDER documented as of this encounter Progress [...] st Contact Info) Description 07/25/2024 10:00 AM INK GRINDER Office Visit [facility] Medical Group Family & Internal Medicine - [place] [address] [place] [address] Keyonna Armstrong APNP [facility] [place] [address] 07/31/2024 10:15 AM INK GRINDER Office Visit [facility] THREE [facility], [facility] [address] [place], [place] [address] Pepe Mitchell MD Three [facility]. [facility] [address] [place], [place] [address] documented as of this encounter Visit Diagnoses Not on filedocumented in this encounter Additional Health Concerns Assessment Noted Time PHQ-9 Depression Total Score: 12 019 9:59 AM CDT documented as of this encounter Care Teams Pharmacy Technician Instructor Relationship Specialty Start Date End Date Keyonna Armstrong APNP [address] [place] [address] PCP - General NURSE PRACTITIONER 05/06/18 documented as of this encounter
--- OUTSIDE RECORDS SUMMARY | 2024-07-11 00:15 | XMS_ITS | Encounter Summary ---
Author Organization [facility] Address [address] [place] [address]. [place], [place] [address] [place] [address] Care Team Providers Care Manager Regulatory Name Role Phone Keyonna Armstrong Primary Care Provider [phone] [phone] Encounter Details Date Type Department Care Team [...] CDT Gender Identity Female 07/17/2022 10:27 AM PLACEMENT SECRETARY Sexual Orientation Straight 07/17/2022 10 :27 AM PLACEMENT SECRETARY documented as of this encounter Plan of Treatment Upcoming Encounters Date Type Department Care Team (Late st Contact Info) Description 07/25/2024 10:00 AM PLACEMENT SECRETARY Office Visit [facility] Medical Group Family & Internal Medicine - [place] [address] [place] [address] Keyonna Armstrong APNP [address] [place] [address] 07/31/2024 10:15 AM PLACEMENT SECRETARY Office Visit [facility] [facility] THREE [facility], [place] [address] [place] [address] Pepe Mitchell MD Three [facility]. [place] [address] [place] [address] documented as of this encounter Visit Diagnoses Not on filedocumented in this encounter Additional Health Concerns Assessment Noted Time PHQ-9 Depression Total Score: 12 019 9:59 AM CDT documented as of this encounter Care Teams Manager Regulatory Relationship Specialty Start Date End Date Keyonna Armstrong APNP [address] [place] [address] PCP - General NURSE PRACTITIONER 05/06/18 documented as of this encounter
--- OUTSIDE RECORDS SUMMARY | 2024-07-11 00:15 | XMS_ITS | Encounter Summary ---
Author Organization [facility] Address [address] [place] [address]. [place], [place] [address] [place] [address] Care Team Providers Care Line Appliance Assembler Name Role Phone Keyonna Armstrong Primary Care Provider [phone] Reason for Visit * Reason Onset Date Comments Appointment Request 03/27/2019 Encounter Details Date Type Department Care Team (Late st Contact Info) Description 03/27/2019 Telephone [facility] Medical Group Diabetes and Endocrinology - [address] [address] Camilla Solis MD Appointment Request Social History [...] CDT Gender Identity Female 07/17/2022 10:27 AM LICENSING REPRESENTATIVE Sexual Orientation Straight 07/17/2022 10 :27 AM LICENSING REPRESENTATIVE documented as of this encounter Progress Notes * Padmaja Daily - 03/27/2019 9:48 AM CDT LM for pt to discuss scheduling options. documented in this encounter Plan of Treatment Upcoming Encounters Date Type Department Care Team (Late st Contact Info) Description 07/25/2024 10:00 AM LICENSING REPRESENTATIVE Office Visit [facility] Medical Group Family & Internal Medicine - [place] [address] [place] [address] Keyonna Armstrong APNP [address] [place] [address] 07/31/2024 10:15 AM LICENSING REPRESENTATIVE Office Visit [facility], [facility] [address] [place] [address] Pepe Mitchell MD Three [facility]. [facility] [address] [place] [address] documented as of this encounter Visit Diagnoses Not on filedocumented in this encounter Additional Health Concerns Assessment Noted Time PHQ-9 Depression Total Score: 12 019 9:59 AM CDT documented as of this encounter Care Teams Line Appliance Assembler Relationship Specialty Start Date End Date Keyonna Armstrong APNP [address] [place] [address] PCP - General NURSE PRACTITIONER 05/06/18 documented as of this encounter
--- OUTSIDE RECORDS SUMMARY | 2024-07-11 00:15 | XMS_ITS | Encounter Summary ---
Author Organization [facility] Address [address] [place] [address]. [place], [place] [address] [place] [address] Care Team Providers Care Import/Export Administrator Name Role Phone Keyonna Armstrong Primary Care Provider [phone] Reason for Visit * Reason Onset Date Comments Pre-visit Gap Closure 01/29/2019 Encounter Details Date Type Department Care Team (Late Contact Info) Description 01/29/2019 Telephone [facility] Family & Internal [facility] [address] [place] [address] Keyonna Armstrong APNP [address] [place] [address] Pre-visit Gap Closure Social History [...] CDT Gender Identity Female 07/17/2022 10:27 AM LIVE AMMUNITION INSPECTOR Sexual Orientation Straight 07/17/2022 10 :27 AM LIVE AMMUNITION INSPECTOR documented as of this encounter Plan of Treatment Upcoming Encounters Date Type Department Care Team (Late st Contact Info) Description 07/25/2024 10:00 AM LIVE AMMUNITION INSPECTOR Office Visit [facility] Family & Internal [place] [address] [place] [address] Keyonna Armstrong APNP [address] [place] [address] 07/31/2024 10:15 AM LIVE AMMUNITION INSPECTOR Office Visit [facility] THREE [facility], [facility] [address] [place], [place] [address] Pepe Mitchell MD Three [facility]. [facility] [address] [place] [address] documented as of this encounter Visit Diagnoses Not on filedocumented in this encounter Additional Health Concerns Assessment Noted Time PHQ-9 Depression Total Score: 12 01/14/ 019 9:59 AM CDT documented as of this encounter Care Teams Import/Export Administrator Relationship Specialty Start Date End Date Keyonna Armstrong APNP [address] [place] [address] PCP - General NURSE PRACTITIONER 05/06/18 documented as of this encounter
--- OUTSIDE RECORDS SUMMARY | 2024-07-11 00:15 | XMS_ITS | Encounter Summary ---
Author Organization [facility] Address [address] [place] [address]. [place], [place] [address] [place] [address] Care Team Providers Care Record Changer Assembler Name Role Phone Keyonna Armstrong Primary Care Provider [phone] Reason for Visit * Reason Onset Date Comments Sleep Problem 04/14/2019 Encounter Details Date Type Department Care Team (Late st Contact Info) Description 04/14/2019 Telephone [facility] Medical Group Family & Internal Medicine [facility] [address] [place] [address] Keyonna Armstrong APNP [address] [place] [address] Sleep Problem Social History Tobacco [...] Identity Female 07/17/2022 10:27 AM DIRECTOR OF CORPORATE SPONSORSHIPS Sexual Orientation Straight 07/17/2022 10 :27 AM DIRECTOR OF CORPORATE SPONSORSHIPS documented as of this encounter Progress Notes [...] would like to try it. Please advise [facility] in on [employer] Cb#[phone] documented in this encounter Plan of Treatment Upcoming Encounters Date Type Department Care Team (Late st Contact Info) Description 07/25/2024 10:00 AM DIRECTOR OF CORPORATE SPONSORSHIPS Office Visit [facility] Medical Group Family & Internal Medicine - [place] [address] [place] [address] Keyonna Armstrong APNP [address] [place] [address] 07/31/2024 10:15 AM DIRECTOR OF CORPORATE SPONSORSHIPS Office Visit [place] [facility] THREE [facility], [facility] [address] [place], [place] [address] Pepe Mitchell MD [facility]. [facility] [address] [place] [address] documented as of this encounter Visit Diagnoses Not on filedocumented in this encounter Additional Health Concerns Assessment Noted Time PHQ-9 Depression Total Score: 12 01/14/ 019 9:59 AM CDT documented as of this encounter Care Teams Record Changer Assembler Relationship Specialty Start Date End Date Keyonna Armstrong APNP [address] [place] [address] PCP - General NURSE PRACTITIONER 05/06/18 documented as of this encounter
--- OUTSIDE RECORDS SUMMARY | 2024-07-11 00:15 | XMS_ITS | Encounter Summary ---
Author Organization [facility] Address [address] [place] [address]. [place] [id number] Care Team Providers Care Provider Network Analyst Name Role Phone Keyonna Armstrong Primary Care Provider [phone] Reason for Visit * Reason Onset Date Comments Medication Problem 02/17/2019 Encounter Details Date Type Department Care Team (Late st Contact Info) Description 02/17/2019 Telephone [facility] Medical Group Family & Internal Medicine [facility] [address] [place] [address] Keyonna Armstrong APNP [address] [place] [address] Medication Problem Social History Tobacco [...] CDT Gender Identity Female 07/17/2022 10:27 AM ROBOTYPE OPERATOR Sexual Orientation Straight 07/17/2022 10 :27 AM ROBOTYPE OPERATOR documented as of this encounter Progress [...] st Contact Info) Description 07/25/2024 10:00 AM ROBOTYPE OPERATOR Office Visit [facility] Medical Group Family & Internal Medicine - [place] [address] [place] [address] Keyonna Armstrong APNP [address] [place] [address] 07/31/2024 10:15 AM ROBOTYPE OPERATOR Office Visit [facility] THREE [facility], [facility] [address] [place] [address] Pepe Mitchell MD Three [facility]. [facility] [address] [place] [address] documented as of this encounter Visit Diagnoses Not on filedocumented in this encounter Additional Health Concerns Assessment Noted Time PHQ-9 Depression Total Score: 12 019 9:59 AM CDT documented as of this encounter Care Teams Provider Network Analyst Relationship Specialty Start Date End Date Keyonna Armstrong APNP [address] [place] [address] PCP - General NURSE PRACTITIONER 05/06/18 documented as of this encounter
--- OUTSIDE RECORDS SUMMARY | 2024-07-11 00:15 | XMS_ITS | Encounter Summary ---
Author Organization [facility] Address [address] [place] [address]. [place], [place] [address] [place] [address] Care Team Providers Care Merchandiser Name Role Phone Keyonna Armstrong Primary Care Provider [phone] Reason for Visit * Reason Onset Date Comments Appointment Request 04/10/2019 Encounter Details Date Type Department Care Team (Late Contact Info) Description 04/10/2019 Telephone [facility] Medical Group Diabetes and Endocrinology - [address] [address] Camilla Solis MD Appointment Request Social History [...] CDT Gender Identity Female 07/17/2022 10:27 AM HOTEL CLERK Sexual Orientation Straight 07/17/2022 10 :27 AM HOTEL CLERK documented as of this encounter Progress Notes * Padmaja Daily - 04/10/2019 11:43 AM CDT LM for pt to discuss scheduling options on a referral (2nd call) documented in this encounter Plan of Treatment Upcoming Encounters Date Type Department Care Team (Late st Contact Info) Description 07/25/2024 10:00 AM HOTEL CLERK Office Visit [facility] Medical Group Family & Internal Medicine - [place] [address] [place] [address] Keyonna Armstrong APNP [address] [place] [address] 07/31/2024 10:15 AM HOTEL CLERK Office [facility], [facility] [address] [place], [place] [address] Pepe Mitchell MD Three [facility]. [facility] [address] [place], [place] [address] documented as of this encounter Visit Diagnoses Not on filedocumented in this encounter Additional Health Concerns Assessment Noted Time PHQ-9 Depression Total Score: 12 019 9:59 AM CDT documented as of this encounter Care Teams Merchandiser Relationship Specialty Start Date End Date Keyonna Armstrong APNP [address] [place] [address] PCP - General NURSE PRACTITIONER 05/06/18 documented as of this encounter
--- OUTSIDE RECORDS SUMMARY | 2024-07-11 00:15 | XMS_ITS | Encounter Summary ---
Author Organization [facility] Address [address] [place] [address]. [place], [place] [address] [place] [address] Care Team Providers Care Health Promotion Manager Name Role Phone Keyonna Armstrong Primary Care Provider [phone] Encounter Details Date Type Department Care Team [...] CDT Gender Identity Female 07/17/2022 10:27 AM RUBY RAILS DEVELOPER Sexual Orientation Straight 07/17/2022 10 :27 AM RUBY RAILS DEVELOPER documented as of this encounter Plan of Treatment Upcoming Encounters Date Type Department Care Team (Late st Contact Info) Description 07/25/2024 10:00 AM RUBY RAILS DEVELOPER Office Visit [facility] Medical Group Family & Internal Medicine - [place] [address] [place] [address] Keyonna Armstrong APNP [address] [place] [address] 07/31/2024 10:15 AM RUBY RAILS DEVELOPER [facility] [address] [address] Pepe Mitchell MD Three [facility]. [facility] [address] [place] [address] documented as of this encounter Visit Diagnoses Not on filedocumented in this encounter Additional Health Concerns Assessment Noted Time PHQ-9 Depression Total Score: 12 019 9:59 AM CDT documented as of this encounter Care Teams Health Promotion Manager Relationship Specialty Start Date End Date Keyonna Armstrong APNP [address] [place] [address] PCP - General NURSE PRACTITIONER 05/06/18 documented as of this encounter
--- OUTSIDE RECORDS SUMMARY | 2024-07-11 00:15 | XMS_ITS | Encounter Summary ---
Author Organization [facility] Address [address] [place] [address]. [place] [id number] [place] [address] Care Team Providers Care Searchlight Operator Name Role Phone Keyonna Armstrong Primary Care Provider [phone] Reason for Visit * Reason Onset Date Comments Lab Results 02/10/2019 Encounter Details Date Type Department Care Team (Late st Contact Info) Description 02/10/2019 Telephone [facility] Medical Group Family & Internal Medicine [facility] [address] [place] [address] Keyonna Armstrong APNP [address] [place] [address] Lab Results Social History Tobacco [...] Gender Identity Female 07/17/2022 10:27 AM ASSISTANT ELEMENTARY TEACHER Sexual Orientation Straight 07/17/2022 10 :27 AM ASSISTANT ELEMENTARY TEACHER documented as of this encounter Progress [...] Contact Info) Description 07/25/2024 10:00 AM ASSISTANT ELEMENTARY TEACHER Office Visit [facility] Medical Group Family & Internal Medicine - [place] [address] [place] [address] Keyonna Armstrong APNP [address] [place] [address] 07/31/2024 10:15 AM ASSISTANT ELEMENTARY TEACHER Office Visit [place] [facility] THREE [facility], [place] [address] [place] [address] Pepe Mitchell MD Three [facility]. [place] [address] [place] [address] documented as of this encounter Procedures Procedure [...] Organization Information: ?Site ID: [id number] ?Name: [facility] ?Address: [address] [address] ?Director: Servando Cervantes D.O., MPH us Keyonna [facility] Edited Resu lt - Final [facility] documented in this encounter Visit Diagnoses Diagnosis Abnormal CBC- Primary Other abnormal blood chemistry documented in this encounter Additional Health Concerns Assessment Noted Time PHQ-9 Depression Total Score: 12 019 9:59 AM CDT documented as of this encounter Care Teams Searchlight Operator Relationship Specialty Start Date End Date Keyonna Armstrong APNP [address] [place] [address] PCP - General NURSE PRACTITIONER 05/06/18 documented as of this encounter
--- OUTSIDE RECORDS SUMMARY | 2024-07-11 00:15 | XMS_ITS | Encounter Summary ---
Author Organization [facility] Address [address] [place] [address]. [place], [place] [address] [place] [address] Care Team Providers Care Lumber Carrier Operator Name Role Phone Keyonna Armstrong Primary Care Provider [phone] Encounter Details Date Type Department Care Team [...] CDT Gender Identity Female 07/17/2022 10:27 AM DOUGHNUT GLAZIER Sexual Orientation Straight 07/17/2022 10 :27 AM DOUGHNUT GLAZIER documented as of this encounter Plan of Treatment Upcoming Encounters Date Type Department Care Team (Late st Contact Info) Description 07/25/2024 10:00 AM DOUGHNUT GLAZIER Office Visit [facility] Medical Group Family & Internal Medicine - [place] [address] [place] [address] Keyonna Armstrong APNP [address] [place] [address] 07/31/2024 10:15 AM DOUGHNUT GLAZIER [facility] [address] [address] Pepe Mitchell MD Three [facility]. [facility] [address] [place] [address] documented as of this encounter Visit Diagnoses Not on filedocumented in this encounter Additional Health Concerns Assessment Noted Time PHQ-9 Depression Total Score: 12 019 9:59 AM CDT documented as of this encounter Care Teams Lumber Carrier Operator Relationship Specialty Start Date End Date Keyonna Armstrong APNP [address] [place] [address] PCP - General NURSE PRACTITIONER 05/06/18 documented as of this encounter
--- OUTSIDE RECORDS SUMMARY | 2024-07-11 00:15 | XMS_ITS | Encounter Summary ---
Author Organization [facility] Address [address] [place] [address]. [place], [place] [address] [place] [address] Care Team Providers Care Head [place] Name Role Phone Keyonna Armstrong Primary Care Provider [phone] [phone] Encounter Details Date Type Department Care Team (Late st Contact Info) Description 03/17/2019 2:00 PM CDT Laboratory Only [facility] Family & Internal Medicine [address] [phone] Social History Tobacco Use Types Packs/Day Years [...] CDT Gender Identity Female 07/17/2022 10:27 AM EXCEL ANALYST Sexual Orientation Straight 07/17/2022 10 :27 AM EXCEL ANALYST documented as of this encounter Plan of Treatment Upcoming Encounters Date Type Department Care Team (Late st Contact Info) Description 07/25/2024 10:00 AM EXCEL ANALYST Office Visit [facility] Family & Internal [address] [phone] Keyonna Armstrong APNP [address] [place] [address] 07/31/2024 10:15 AM EXCEL ANALYST Office [facility] THREE [facility], [facility] [address] [place] [address] Pepe Mitchell MD Three [facility]. [facility] [address] [place] [address] documented as of this encounter Procedures Procedure [...] as of this encounter Care Teams Head [place] Relationship Specialty Start Date End Date Keyonna Armstrong APNP [address] [place] [address] PCP - General NURSE PRACTITIONER 05/06/18 documented as of this encounter
--- OUTSIDE RECORDS SUMMARY | 2024-07-11 00:16 | XMS_ITS | Encounter Summary ---
Author Organization [facility] Address [address] [place] [address]. [place] [id number] [place] [address] Care Team Providers Care Hardening Machine Operator Helper Name Role Phone Keyonna Armstrong Primary Care Provider +1 [phone] Reason for Visit * Reason Onset Date Comments Medication 10/18/2018 Venlafaxine Clar ification Encounter Details Date Type Department Care Team (Late st Contact Info) Description 10/18/2018 Telephone [facility] Family & Internal Medicine [facility] [address] [place] [address] Keyonna Armstrong APNP [address] [place] [address] Medication (Venlafaxine Clarification) Social History [...] CDT Gender Identity Female 07/17/2022 10:27 AM CRITICAL CARE TRANSPORT NURSE Sexual Orientation Straight 07/17/2022 10 :27 AM CRITICAL CARE TRANSPORT NURSE documented as of this encounter Progress Notes * Rachel Urena, FIRE EXTINGUISHER REPAIRER - 10/21/2018 2:49 PM CDT Pt notified [...] 4:08 PM CDT Received a fax from [employer] regarding venlafaxine hcl ER 75mg cap, qd. Message states: Pt already picked this up, says it should be 3 times daily not once daily. If this is correct please send new rx with correct directions Should patient be taking this TID? documented in this encounter Plan of Treatment Upcoming Encounters Date Type Department Care Team (Late st Contact Info) Description 07/25/2024 10:00 AM CRITICAL CARE TRANSPORT NURSE Office Visit [facility] Family & Internal Medicine - [place] [address] [place] [address] Keyonna Armstrong APNP [address] [place] [address] 07/31/2024 10:15 AM CRITICAL CARE TRANSPORT NURSE Office Visit [facility], [facility] [address] [place] [address] Pepe Mitchell MD Three [facility]. [place] [address] [place] [address] documented as of this encounter Visit Diagnoses Not on filedocumented in this encounter Care Teams Hardening Machine Operator Helper Relationship Specialty Start Date End Date Keyonna Armstrong APNP [address] [place] [address] PCP - General NURSE PRACTITIONER 05/06/18 documented as of this encounter
--- OUTSIDE RECORDS SUMMARY | 2024-07-11 00:16 | XMS_ITS | Encounter Summary ---
Author Organization [facility] Address [address] [place] [address]. [place] [id number] [place] [address] Care Team Providers Care Contact Center Assistant Name Role Phone Keyonna Armstrong Primary Care Provider +1 [phone] Reason for Visit * Reason Comments Lab [...] CDT Gender Identity Female 07/17/2022 10:27 AM SHOVEL ENGINEER Sexual Orientation Straight 07/17/2022 10 :27 AM SHOVEL ENGINEER documented as of this encounter Plan of Treatment Upcoming Encounters Date Type Department Care Team (Late st Contact Info) Description 07/25/2024 10:00 AM SHOVEL ENGINEER Office Visit [facility] Family & Internal Medicine - [place] [address] [place] [phone] Keyonna Armstrong APNP [address] [place] [address] 07/31/2024 10:15 AM SHOVEL ENGINEER Office Visit [facility] THREE [facility], [place] [address] [place] [address] Pepe Mitchell MD Three [facility]. [place] [address] [place] [address] documented as of this encounter Procedures Procedure [...] documented as of this encounter Care Teams Contact Center Assistant Relationship Specialty Start Date End Date Keyonna Armstrong APNP [address] [place] [address] PCP - General NURSE PRACTITIONER 05/06/18 documented as of this encounter
--- OUTSIDE RECORDS SUMMARY | 2024-07-11 00:16 | XMS_ITS | Encounter Summary ---
Author Organization [facility] Address [address] [place] [address]. [place], [place] [address] [place] [address] Care Team Providers Care Alumni Secretary Name Role Phone Keyonna Armstrong Primary Care Provider +1 [phone] Reason for Visit * Reason Onset Date Comments Medication 09/26/2018 Encounter Details Date Type Department Care Team (Late st Contact Info) Description 09/26/2018 Telephone [facility] Family & Internal Medicine [facility] [address] [place] [address] Keyonna Armstrong APNP [address] [place] [address] Medication Social History Tobacco Use [...] CDT Gender Identity Female 07/17/2022 10:27 AM COMPTROLLER Sexual Orientation Straight 07/17/2022 10 :27 AM COMPTROLLER documented as of this encounter Progress Notes * Nenita Young MA - 09/26/2018 2:11 PM CST Patient would like same bcp she has had in the past, I [facility] TROLLER * Precious Oviedo - 09/26/2018 8:58 AM CST Pt calling, asking for Nenita to call her later today about her control pills TROLLER documented in this encounter Plan of Treatment Upcoming Encounters Date Type Department Care Team (Late st Contact Info) Description 07/25/2024 10:00 AM COMPTROLLER Office Visit [facility] Family & Internal Medicine - [place] [address] [place] [address] Keyonna Armstrong APNP [address] [place] [address] 07/31/2024 10:15 AM COMPTROLLER Office Visit [facility], [facility] [address] [place] [address] Pepe Mitchell MD Three [facility]. [facility] [address] [place], [place] [address] documented as of this encounter Visit Diagnoses Not on filedocumented in this encounter Care Teams Alumni Secretary Relationship Specialty Start Date End Date Keyonna Armstrong APNP [address] [place] [address] PCP - General NURSE PRACTITIONER 05/06/18 documented as of this encounter
--- OUTSIDE RECORDS SUMMARY | 2024-07-11 00:16 | XMS_ITS | Encounter Summary ---
Author Organization [facility] Address [address] [place] [address]. [place] [address] Care Team Providers Care Family And Consumer Science Professor Name Role Phone Keyonna Armstrong Primary Care Provider [phone] [phone] Reason for Visit * Reason Onset Date Comments Question 12/26/2018 Rexulti and lab results Encounter Details Date Type Department Care Team (Late st Contact Info) Description 12/26/2018 Telephone [facility] Family & Internal Medicine [facility] [address] [place] [address] Keyonna Armstrong APNP [address] [place] [address] Question (Rexulti and lab results) [...] CDT Gender Identity Female 07/17/2022 10:27 AM PAROLE OR PROBATION OFFICER Sexual Orientation Straight 07/17/2022 10 :27 AM PAROLE OR PROBATION OFFICER documented as of this encounter Progress [...] a new med called in, Rexulti, to [facility]. documented in this encounter Plan of Treatment Upcoming Encounters Date Type Department Care Team (Late st Contact Info) Description 07/25/2024 10:00 AM PAROLE OR PROBATION OFFICER Office Visit [facility] Medical [facility] Family & Internal Medicine - [address] [address] Keyonna Armstrong APNP [address] [place] [address] 07/31/2024 10:15 AM PAROLE OR PROBATION OFFICER Office Visit [facility] THREE [facility], [facility] [address] [place] [address] Pepe Mitchell MD Three [facility]. [place] [address] [place] [address] documented as of this encounter Visit Diagnoses Diagnosis Recurrent major depressive disorder, in partial remission (CMS/HCC)- Primary documented in this encounter Additional Health Concerns Assessment Noted Time PHQ-9 Depression Total Score: 23 019 9:51 AM CDT documented as of this encounter Care Teams Family And Consumer Science Professor Relationship Specialty Start Date End Date Keyonna Armstrong APNP [address] [place] [address] PCP - General NURSE PRACTITIONER 05/06/18 documented as of this encounter
--- OUTSIDE RECORDS SUMMARY | 2024-07-11 00:16 | XMS_ITS | Encounter Summary ---
Author Organization [facility] Address [address] [place] [address]. [place], [place] [address] [place] [address] Care Team Providers Care Ready Mix Truck Driver Name Role Phone Keyonna Armstrong Primary Care Provider [phone] Reason for Visit * Reason Onset Date Comments Pre-visit Gap Closure 01/07/2019 Encounter Details Date Type Department Care Team (Late st Contact Info) Description 01/07/2019 Telephone [facility] Family & Internal [facility] [address] [place] [address] Keyonna Armstrong APNP [address] [place] [address] Pre-visit Gap Closure Social History [...] CDT Gender Identity Female 07/17/2022 10:27 AM SEARCH DIRECTOR Sexual Orientation Straight 07/17/2022 10 :27 AM SEARCH DIRECTOR documented as of this encounter Plan of Treatment Upcoming Encounters Date Type Department Care Team (Late st Contact Info) Description 07/25/2024 10:00 AM SEARCH DIRECTOR Office Visit [facility] Family & Internal [place] [address] [place] [address] Keyonna Armstrong APNP [address] [place] [address] 07/31/2024 10:15 AM SEARCH DIRECTOR Office Visit [facility] THREE [facility], [facility] [address] [place], [place] [address] Pepe Mitchell MD Three [facility]. [facility] [address] [place] [address] documented as of this encounter Visit Diagnoses Not on filedocumented in this encounter Additional Health Concerns Assessment Noted Time PHQ-9 Depression Total Score: 23 12/24/ 019 9:51 AM CDT documented as of this encounter Care Teams Ready Mix Truck Driver Relationship Specialty Start Date End Date Keyonna Armstrong APNP [address] [place] [address] PCP - General NURSE PRACTITIONER 05/06/18 documented as of this encounter
--- OUTSIDE RECORDS SUMMARY | 2024-07-11 00:16 | XMS_ITS | Encounter Summary ---
Author Organization [facility] Address [address] [place] [address]. [place], [place] [address] [place] [address] Care Team Providers Care Nurses Medical Assistants Phlebotomists Name Role Phone Keyonna Armstrong Primary Care Provider [phone] Reason for Visit * Reason Comments Lab [...] Gender Identity Female 07/17/2022 10:27 AM PUBLIC RELATIONS MANAGER Sexual Orientation Straight 07/17/2022 10 :27 AM PUBLIC RELATIONS MANAGER documented as of this encounter Plan of Treatment Upcoming Encounters Date Type Department Care Team (Late st Contact Info) Description 07/25/2024 10:00 AM PUBLIC RELATIONS MANAGER Office Visit [facility] Medical Group Family & Internal Medicine - [address] [address] Keyonna Armstrong APNP [facility] [place] [address] 07/31/2024 10:15 AM PUBLIC RELATIONS MANAGER Office Visit [facility] THREE [facility], [place] [address] [place] [address] Pepe Mitchell MD Three [facility]. [place] [address] [place] [address] documented as of this encounter Procedures Procedure Name Priority Date/Time Associated Diagnosis Comments OUTSIDE LAB (SCAN ORDER) Routine 01/15/2019 documented in this encounter Results * OUTSIDE LAB (01/15/2019) 01/15/2019 us Documents Scanned SCANNING Edited Result - Final [facility] [address] [address] documented in this encounter Visit Diagnoses Not on filedocumented in this encounter Additional Health Concerns Assessment Noted Time PHQ-9 Depression Total Score: 12 019 9:59 AM CDT documented as of this encounter Care Teams Nurses Medical Assistants Phlebotomists Relationship Specialty Start Date End Date Keyonna Armstrong APNP [facility] [place] [address] PCP - General NURSE PRACTITIONER 05/06/18 documented as of this encounter
--- OUTSIDE RECORDS SUMMARY | 2024-07-11 00:16 | XMS_ITS | Encounter Summary ---
Author Organization [facility] Address [address] [place] [address]. [place] [phone] [place] [address] Care Team Providers Care All Around Patternmaker Name Role Phone Keyonna Armstrong Primary Care Provider [phone] Reason for Visit * Reason Comments Follow Up Encounter Details Date Type Department Care Team (Late st Contact Info) Description 01/14/2019 9:40 AM CDT Office Visit [facility] Medical Group Family & Internal Medicine [facility] [address] [place] [address] Kyeonna Armstrong APNP [address] [place], [place] [phone] Follow Up Social History Tobacco Use Types [...] CDT Gender Identity Female 07/17/2022 10:27 AM BOARDMARKER Sexual Orientation Straight 07/17/2022 10 :27 AM BOARDMARKER documented as of this encounter Last Filed [...] from the original note were not included. [facility] FAMILY AND INTERNAL MEDICINE OFFICE VISIT [...] file Gets together: Not on file Attends jehovah's witness service: Not on file Active member of [...] st Contact Info) Description 07/25/2024 10:00 AM BOARDMARKER Office Visit [facility] Medical Group Family & Internal Medicine - [place] [address] [place] [address] Keyonna Armstrong APNP [address] [place] [address] 07/31/2024 10:15 AM BOARDMARKER Office Visit [facility], [facility] [address] [place] [address] Pepe Mitchell MD [facility]. [facility] [address] [place] [address] documented as of this encounter Procedures Procedure [...] approximately 13% higher for people identified as -[place]. EGFR NON-AFR. AMER. 98 > OR = [...] Agency Comment Performing Organization Information: ?Site ID: [id number] ?Name: [facility] ?Address: [address] [id number] ?Director: Servando Cervantes D.O., MPH us Keyonna [...] Organization Information: ?Site ID: [place] ?Name: [facility] ?Address: [address] [address] ?Director: Servando Cervantes D.O., MPH Keyonna [place] [...] documented as of this encounter Care Teams All Around Patternmaker Relationship Specialty Start Date End Date Keyonna Armstrong APNP [address] [place] [address] PCP - General NURSE PRACTITIONER 05/06/18 documented as of this encounter
--- OUTSIDE RECORDS SUMMARY | 2024-07-11 00:16 | XMS_ITS | Encounter Summary ---
Author Organization [facility] Address [address] [place] [address]. [place], [place] [address] [place] [address] Care Team Providers Care Package Line Operator Name Role Phone Keyonna Armstrong Primary Care Provider [phone] [phone] Encounter Details Date Type Department Care Team [...] CDT Gender Identity Female 07/17/2022 10:27 AM BRANDING MACHINE OPERATOR Sexual Orientation Straight 07/17/2022 10 :27 AM BRANDING MACHINE OPERATOR documented as of this encounter Plan of Treatment Upcoming Encounters Date Type Department Care Team (Late st Contact Info) Description 07/25/2024 10:00 AM BRANDING MACHINE OPERATOR Office Visit [facility] Medical Group Family & Internal Medicine - [place] [address] [place] [address] Keyonna Armstrong APNP [address] [place] [address] 07/31/2024 10:15 AM BRANDING MACHINE OPERATOR Office [facility] [address] [address] Pepe Mitchell MD Three [facility]. [facility] [address] [place] [address] documented as of this encounter Visit Diagnoses Not on filedocumented in this encounter Additional Health Concerns Assessment Noted Time PHQ-9 Depression Total Score: 23 019 9:51 AM CDT documented as of this encounter Care Teams Package Line Operator Relationship Specialty Start Date End Date Keyonna Armstrong APNP [address] [place] [address] PCP - General NURSE PRACTITIONER 05/06/18 documented as of this encounter
--- OUTSIDE RECORDS SUMMARY | 2024-07-11 00:16 | XMS_ITS | Encounter Summary ---
Author Organization [facility] Address [address] [place] [address]. [place], [place] [address] [place] [address] Care Team Providers Care Engraver Set Up Operator Name Role Phone Keyonna Armstrong Primary Care Provider [phone] Reason for Visit * Reason Comments Blood Pressure Check Encounter Details Date Type Department Care Team (Latest Contact Info) Description 09/24/2018 1:40 PM EDGE SANDER Allied Health/Nurse Visit [facility] Family & Internal [address] [address] Blood Pressure Check Social History [...] Gender Identity Female 07/17/2022 10:27 AM EDGE SANDER Sexual Orientation Straight 07/17/2022 10 :27 AM EDGE SANDER documented as of this encounter Last Filed Vital Signs Vital Sign Reading Time Taken Comments Blood Pressure 122/68 09/24/2018 2:34 PM EDGE SANDER Pulse - - Temperature - - Respiratory Rate - - Oxygen Saturation - - Inhaled Oxygen Concentration - - Weight - - Height - - Body Mass Index - - documented in this encounter Plan of Treatment Upcoming Encounters Date Type Department Care Team (Late st Contact Info) Description 07/25/2024 10:00 AM EDGE SANDER Office Visit [facility] Family & Internal Medicine - [place] [address] [place] [address] Keyonna Armstrong APNP [address] [place] [address] 07/31/2024 10:15 AM EDGE SANDER Office Visit [facility] THREE [facility], [facility] [address] [place] [address] Pepe Mitchell MD Three [facility]. [facility] [address] [place] [address] documented as of this encounter Visit Diagnoses Diagnosis Essential hypertension- Primary Unspecified essential hypertension documented in this encounter Care Teams Engraver Set Up Operator Relationship Specialty Start Date End Date Keyonna Armstrong APNP [address] [place] [address] PCP - General NURSE PRACTITIONER 05/06/18 documented as of this encounter
--- OUTSIDE RECORDS SUMMARY | 2024-07-11 00:16 | XMS_ITS | Encounter Summary ---
Author Organization [facility] Address [address] [place] [address]. [place], [place] [address] [place] [address] Care Team Providers Care Artist Blacksmith Name Role Phone Keyonna Armstrong Primary Care Provider [phone] Encounter Details Date Type Department Care Team [...] CDT Gender Identity Female 07/17/2022 10:27 AM TWISTING PRESS OPERATOR Sexual Orientation Straight 07/17/2022 10 :27 AM TWISTING PRESS OPERATOR documented as of this encounter Plan of Treatment Upcoming Encounters Date Type Department Care Team (Late st Contact Info) Description 07/25/2024 10:00 AM TWISTING PRESS OPERATOR Office Visit [facility] Medical Group Family & Internal Medicine - [place] [address] [place] [address] Keyonna Armstrong APNP [address] [place] [address] 07/31/2024 10:15 AM TWISTING PRESS OPERATOR Office [facility] [address] [address] Pepe Mitchell MD Three [facility]. [facility] [address] [place] [address] documented as of this encounter Visit Diagnoses Not on filedocumented in this encounter Additional Health Concerns Assessment Noted Time PHQ-9 Depression Total Score: 23 019 9:51 AM CDT documented as of this encounter Care Teams Artist Blacksmith Relationship Specialty Start Date End Date Keyonna Armstrong APNP [address] [place] [address] PCP - General NURSE PRACTITIONER 05/06/18 documented as of this encounter
--- OUTSIDE RECORDS SUMMARY | 2024-07-11 00:16 | XMS_ITS | Encounter Summary ---
Author Organization [facility] Address [address] [place] [address]. [place], [place] [address] [place] [address] Care Team Providers Care Medical Care Administrator Name Role Phone Keyonna Armstrong Primary Care Provider [phone] Encounter Details Date Type Department Care Team (Late st Contact Info) Description 12/23/2018 Orders Only [facility] Family & Internal Medicine [address] [phone] Negar Reese MA Social History Tobacco Use [...] CDT Gender Identity Female 07/17/2022 10:27 AM MUCK BOSS Sexual Orientation Straight 07/17/2022 10 :27 AM MUCK BOSS documented as of this encounter Plan of Treatment Upcoming Encounters Date Type Department Care Team (Late st Contact Info) Description 07/25/2024 10:00 AM MUCK BOSS Office Visit [facility] Family & Internal Medicine [address] [address] Keyonna Armstrong APNP [address] [place] [address] 07/31/2024 10:15 AM MUCK BOSS Office Visit [facility] THREE [facility], [facility] [address] [place] [address] Pepe Mitchell MD Three [facility]. [facility] [address] [place] [address] documented as of this encounter Visit Diagnoses Not on filedocumented in this encounter Care Teams Medical Care Administrator Relationship Specialty Start Date End Date Keyonna Armstrong APNP [address] [place] [address] PCP - General NURSE PRACTITIONER 05/06/18 documented as of this encounter
--- OUTSIDE RECORDS SUMMARY | 2024-07-11 00:16 | XMS_ITS | Encounter Summary ---
Author Organization [facility] Address [facility]. [place], [place] [address] [place] [address] Care Team Providers Care Microbiology Coordinator Name Role Phone Aracely Armstrong Primary Care Provider [phone] Reason for Referral * Consultation (Routine) - Closed Specialty Diagnoses / Procedures Referred By Lee t Referred To Contact ENDOCRINOLOGY Diagnoses Adenoma of left adrenal gland Aracely Armstrong APNP [address] [place] [address] Phone: tel: fax: [facility] Diabetes and Endocrinology - [address] [address] Phone: tel: fax: Referral ID Status Reason Start Date Expiration Date Visits Re quested Visits Authorized [id number] Closed 12/26/2018 01/26/2020 1 1 Reason for Visit * Reason Comments Depression Encounter Details Date Type Department Care Team (Late st Contact Info) Description 12/24/2018 9:00 AM CDT [facility] - [place] [address] [place] [phone] Aracely Armstrong APNP [address] [place], [place] [phone] Depression Social History Tobacco Use Types Packs/Day [...] Gender Identity Female 07/17/2022 10:27 AM AIRCRAFT PNEUDRAULICS REPAIRER Sexual Orientation Straight 07/17/2022 10 :27 AM AIRCRAFT PNEUDRAULICS REPAIRER documented as of this encounter Last [...] from the original note were not included. [facility] [...] did not. She states she went to [facility] to discuss her OCP and states she was told she could stay on her OCP fornow. States she was seen at [facility] in [facility]. Will verify this. She wears CPAP nightly and tolerates well. She states she still often wakes up tired. Had her CPAP checked at [place] with her recent surgery and states her [...] Contact Info) Description 07/25/2024 10:00 AM AIRCRAFT PNEUDRAULICS REPAIRER [facility] - [place] [address] [place] [phone] Aracely Armstrong APNP [address] [place] [address] 07/31/2024 10:15 AM AIRCRAFT PNEUDRAULICS REPAIRER Office Visit [facility], [address] [address] Pepe Mitchell MD Three [facility]. [facility] [address] [place], [place] [address] Scheduled Orders Name Type Priority Associated Diagnoses [...] Organization Information: ?Site ID: RICH ?Name: [facility] ?Address: [address] [place] [address] ?Director: Servando Cervantes D.O., MPH Aracely HILTON URINE ORDERABLES Final Resu lt Performing Organization Address [facility] de Phone Number [facility] [...] Organization Information: ?Site ID: RICH ?Name: [facility] ?Address: [address] [place] [address] ?Director: Servando Cervantes D.O., MPH Aracely HILTON LABORATORY Final Resul t Performing Organization Address [facility] de Phone Number [facility] ORD[facility] * (ABNORMAL) LIPID PANEL (12/24/2018 10:06 AM CDT) CHOLESTEROL 141 <200 mg/dL [facility] HDL 46(L) >50 mg/dL [facility] TRIGLYCERIDES 230(H) <150 mg/dL [facility] LDL (CALCULATED) 66 mg/dL (calc) [facility] - [facility] ORDERS Comment: Reference range: <100 [...] of LDL-C. Deep SS et al. JAMAR. 2013;310(96): 8503-0677 (http://education.[employer]/faq/ZRJ357) CHOL/HDL RATIO 3.1 <5.0 (calc) [employer] [facility] - [facility] ORDERS NON HDL CHOLESTEROL 95 <130 mg/dL (calc) [facility] - [facility] ORDERS Comment: For patients with diabetes plus 1 major ASCVD risk factor, treating to a non-HDL-C goal of <100 mg/dL (LDL-C of <70 mg/dL) is considered a therapeutic option. 12/24/2018 10:0 6 AM CDT 12/25/2018 5:12 AM CDT Narrative Resulting Agency Comment Performing Organization Information: ?Site ID: [place] ?Name: [facility] ?Address: [address] [address] ?Director: Servando Cervantes D.O., MPH Aracely HILTON LABORATORY Final Resul t [facility] YEFRI ORDERS * COMPREHENSIVE METABOLIC PANEL (12/24/2018 10:06 AM CDT) [facility] GLUCOSE 80 65 - 99 mg/dL [facility] - [facility] ORDERS Comment: ? Fasting reference interval BUN 20 7 - 25 mg/dL [facility] - [facility] CREATININE S/P/B 0.60 0.50 - 1.05 mg/dL [facility] Comment: For patients >49 years of age, the reference limit for Creatinine is approximately 13% higher for people identified as -[place]er. EGFR NON-AFR. AMER. 106 > OR = [...] ?Site ID: RICH ?Name: [facility] ?Address: [address] [address] ?Director: Servando Cervantes D.O., MPH Aracely HILTON [...] Organization Information: ?Site ID: [place] ?Name: [facility] ?Address: [address] [place] [address] ?Director: Servando Cervantes D.O., MPH Aracely HILTON [...] documented as of this encounter Care Teams Microbiology Coordinator Relationship Specialty Start Date End Date Aracely Armstrong APNP [address] [place] [address] PCP - General NURSE PRACTITIONER 05/06/18 documented as of this encounter
--- OUTSIDE RECORDS SUMMARY | 2024-07-11 00:16 | XMS_ITS | Encounter Summary ---
Author Organization [facility] Address [address] [place] [address]. [place], [place] [address] [place] [address] Care Team Providers Care Parts Administrator Name Role Phone Keyonna Armstrong Primary Care Provider [phone] Reason for Visit * Reason Onset Date Comments Prior Authorization 01/01/2019 Encounter Details Date Type Department Care Team (Late st Contact Info) Description 01/01/2019 Telephone [facility] Family & Internal Medicine [facility] [address] [place] [phone] Keyonna Armstrong APNP [address] [place], [place] [phone] Prior Authorization Social History Tobacco Use Types [...] Gender Identity Female 07/17/2022 10:27 AM MACHINE OPERATOR CANE CUTTER Sexual Orientation Straight 07/17/2022 10 :27 AM MACHINE OPERATOR CANE CUTTER documented as of this encounter Progress [...] st Contact Info) Description 07/25/2024 10:00 AM MACHINE OPERATOR CANE CUTTER Office Visit [facility] Family & Internal Medicine - [place] [address] [place] [address] Keyonna Armstrong APNP [address] [place] [address] 07/31/2024 10:15 AM MACHINE OPERATOR CANE CUTTER Office Visit [facility] THREE [facility], [facility] [address] [place], [place] [address] Pepe Mitchell MD Three [facility]. [facility] [address] [place] [address] documented as of this encounter Visit Diagnoses Diagnosis Recurrent major depressive disorder, in partial remission (CMS/HCC) documented in this encounter Additional Health Concerns Assessment Noted Time PHQ-9 Depression Total Score: 23 019 9:51 AM CDT documented as of this encounter Care Teams Parts Administrator Relationship Specialty Start Date End Date Keyonna Armstrong APNP [address] [place] [address] PCP - General NURSE PRACTITIONER 10/15/18 documented as of this encounter
--- OUTSIDE RECORDS SUMMARY | 2024-07-11 00:16 | XMS_ITS | Encounter Summary ---
Author Organization [facility] Address [address] [place] [address]. [place], [place] [address] [place] [address] Care Team Providers Care Windows Vmware Administrator Name Role Phone Keyonna Armstrong Primary Care Provider [phone] Reason for Visit * Reason Onset Date Comments Medication Problem 09/25/2018 Encounter Details Date Type Department Care Team (Late st Contact Info) Description 09/25/2018 Telephone [facility] Family & Internal Medicine [facility] [address] [place] [address] Keyonna Armstrong APNP [address] [place] [address] Medication Problem Social History Tobacco [...] CDT Gender Identity Female 07/17/2022 10:27 AM BUILDER OPERATOR Sexual Orientation Straight 07/17/2022 10 :27 AM BUILDER OPERATOR documented as of this encounter Progress [...] that Could not find in the notes. DER OPERATOR documented in this encounter Plan of Treatment Upcoming Encounters Date Type Department Care Team (Late st Contact Info) Description 07/25/2024 10:00 AM BUILDER OPERATOR Office Visit [facility] Medical Group Family & Internal Medicine - [address] [address] Keyonna Armstrong APNP [address] [place] [address] 07/31/2024 10:15 AM BUILDER OPERATOR Office Visit [facility] THREE [facility], [facility] [address] [place] [address] Pepe Mitchell MD [facility]. [facility] [address] [place], [place] [address] documented as of this encounter Visit Diagnoses Not on filedocumented in this encounter Care Teams Windows Vmware Administrator Relationship Specialty Start Date End Date Keyonna Armstrong APNP [address] [place] [address] PCP - General NURSE PRACTITIONER 05/06/18 documented as of this encounter
--- OUTSIDE RECORDS SUMMARY | 2024-07-11 00:16 | XMS_ITS | Encounter Summary ---
Author Organization [facility] Address [address] [place] [address]. [place], [place] [address] [place] [address] Care Team Providers Care Police Pilot Name Role Phone Keyonna Armstrong Primary Care Provider [phone] Encounter Details Date Type Department Care Team (Late st Contact Info) Description 01/27/2019 10:40 AM CDT Laboratory Only [facility] Family & Internal Medicine [address] [phone] Social History Tobacco Use Types Packs/Day Years [...] Gender Identity Female 07/17/2022 10:27 AM SEARCH ENGINE OPTIMIZATION CONSULTANT Sexual Orientation Straight 07/17/2022 10 :27 AM SEARCH ENGINE OPTIMIZATION CONSULTANT documented as of this encounter Plan of Treatment Upcoming Encounters Date Type Department Care Team (Late st Contact Info) Description 07/25/2024 10:00 AM SEARCH ENGINE OPTIMIZATION CONSULTANT Office Visit [facility] Family & Internal Medicine [address] [phone] Keyonna Armstrong APNP [address] [place] [address] 07/31/2024 10:15 AM SEARCH ENGINE OPTIMIZATION CONSULTANT Office Visit [facility] THREE [facility] [place] [address] [place] [address] Pepe Mitchell MD Three [facility]. [place] [address] [place] [address] documented as of this encounter Procedures Procedure [...] documented as of this encounter Care Teams Police Pilot Relationship Specialty Start Date End Date Keyonna Armstrong APNP [address] [place] [address] PCP - General NURSE PRACTITIONER 05/06/18 documented as of this encounter
--- OUTSIDE RECORDS SUMMARY | 2024-07-11 00:16 | XMS_ITS | Encounter Summary ---
Author Organization [facility] Address [address] [place] [address]. [place] [phone] [place], [place] [phone] Care Team Providers Care Licensed Mass Real Estate Appraiser Name Role Phone Keyonna Armstrong Primary Care Provider [phone] Reason for Visit * Reason Onset Date Comments Refill Request 09/25/2018 Encounter Details Date Type Department Care Team (Late st Contact Info) Description 09/25/2018 Telephone [facility] Family & Internal Medicine [facility] [address] [place] [address] Keyonna Armstrong APNP [address] [place], [place] [phone] Refill Request Social History Tobacco Use Types [...] CDT Gender Identity Female 07/17/2022 10:27 AM NEURO OPHTHALMOLOGIST Sexual Orientation Straight 07/17/2022 10 :27 AM NEURO OPHTHALMOLOGIST documented as of this encounter Progress Notes * Sherlyn Omalley RN - 09/25/2018 1:39 PM CST rx for enpressa. Refilled. O OPHTHALMOLOGIST documented in this encounter Plan of Treatment Upcoming Encounters Date Type Department Care Team (Late st Contact Info) Description 07/25/2024 10:00 AM NEURO OPHTHALMOLOGIST Office Visit [facility] Family & Internal Medicine - [place] [address] [place] [address] Keyonna Armstrong APNP [address] [place] [address] 07/31/2024 10:15 AM NEURO OPHTHALMOLOGIST Office Visit [facility] [address] [facility], [facility] [address] [place] [address] Pepe Mitchell MD [facility]. [facility] [address] [place], [place] [address] documented as of this encounter Visit Diagnoses Diagnosis Menorrhagia Excessive or frequent menstruation documented in this encounter Care Teams Licensed [employer] Real Estate Appraiser Relationship Specialty Start Date End Date Keyonna Armstrong APNP [facility] [place] [address] PCP - General NURSE PRACTITIONER 05/06/18 documented as of this encounter
--- OUTSIDE RECORDS SUMMARY | 2024-07-11 00:16 | XMS_ITS | Encounter Summary ---
Author Organization [facility] Address [address] [place] [address]. 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 Sexual Orientation Straight 07/17/2022 10 :27 AM RAIL CAR REPAIRMAN documented as of this encounter Plan of Treatment Upcoming Encounters Date Type Department Care Team (Late st Contact Info) Description 07/25/2024 10:00 AM RAIL CAR REPAIRMAN Office Visit [facility] Family & Internal Medicine - [place] [address] [place] [address] Keyonna Armstrong APNP [address] [place] [address] 07/31/2024 10:15 AM RAIL CAR REPAIRMAN [facility] [address] [address] Pepe Mitchell MD Three [facility]. [facility] [address] [place] [address] documented as of this encounter Visit Diagnoses Not on filedocumented in this encounter Additional Health Concerns Assessment Noted Time PHQ-9 Depression Total Score: 12 019 9:59 AM CDT documented as of this encounter Care Teams Supervisor Cleaning And Annealing Relationship Specialty Start Date End Date Keyonna Armstrong APNP [address] [place] [address] PCP - General NURSE PRACTITIONER 05/06/18 documented as of this encounter
--- OUTSIDE RECORDS SUMMARY | 2024-07-11 00:16 | XMS_ITS | Encounter Summary ---
Author Organization [facility] Address [address] [place] [address]. 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 [facility] [address] [place] [address] documented as of this encounter Visit Diagnoses Not on filedocumented in this encounter Care Teams Cook Short Order Relationship Specialty Start Date End Date Keyonna Armstrong APNP [address] [place] [address] PCP - General NURSE PRACTITIONER 05/06/18 documented as of this encounter
--- OUTSIDE RECORDS SUMMARY | 2024-07-11 00:16 | XMS_ITS | Encounter Summary ---
Author Organization [facility] Address [address] [place] [address]. [place], [place] [address] [place] [address] Care Team Providers Care [place] Mounter Name Role Phone Keyonna Armstrong Primary Care Provider [phone] Reason for Visit * Reason Comments Lab [...] CDT Gender Identity Female 07/17/2022 10:27 AM LIGHTER CAPTAIN Sexual Orientation Straight 07/17/2022 10 :27 AM LIGHTER CAPTAIN documented as of this encounter Plan of Treatment Upcoming Encounters Date Type Department Care Team (Late st Contact Info) Description 07/25/2024 10:00 AM LIGHTER CAPTAIN Office Visit [facility] Group Family & Internal Medicine - [address] [address] [facility] [place] [address] 07/31/2024 10:15 AM LIGHTER CAPTAIN Office Visit [facility] THREE [facility] [place] [address] [place] [address] Pepe Mitchell MD Three [facility]. [place] [address] [place] [address] documented as of this encounter Procedures Procedure Name Priority Date/Time Associated Diagnosis Comments OUTSIDE LAB (SCAN ORDER) Routine 01/14/2019 documented in this encounter Results * OUTSIDE LAB (01/14/2019) 01/14/2019 us Documents Scanned SCANNING Edited Result - Final [facility] [address] [address] documented in this encounter Visit Diagnoses Not on filedocumented in this encounter Additional Health Concerns Assessment Noted Time PHQ-9 Depression Total Score: 12 019 9:59 AM CDT documented as of this encounter Care Teams [place] Mounter Relationship Specialty Start Date End Date Keyonna Armstrong APNP [facility] [place] [address] PCP - General NURSE PRACTITIONER 05/06/18 documented as of this encounter
--- OUTSIDE RECORDS SUMMARY | 2024-07-11 00:17 | XMS_ITS | Encounter Summary ---
Author Organization [facility] Address [address] [place] [address]. [place], [place] [address] [place] [address] Care Team Providers Care Events Manager Name Role Phone Keyonna Armstrong Primary Care Provider +1 [phone] Encounter Details Date Type Department Care Team (Late st Contact Info) Description 07/11/2018 Orders Only [facility] Family & Internal Medicine [facility] [address] [place] [address] Keyonna Armstrong APNP [address] [place] [address] Social History Tobacco Use Types Packs/Day Years [...] CDT Gender Identity Female 07/17/2022 10:27 AM UNDERTAKER ASSISTANT Sexual Orientation Straight 07/17/2022 10 :27 AM UNDERTAKER ASSISTANT documented as of this encounter Progress Notes * YOBANI Cruz - 07/19/2018 11:32 AM CST With further investigation, it looks like these labs were ordered from a provider from [facility] and justCC'd to me. Make sure pt has follow up with [facility] provider to discuss these labs. RTAKER ASSISTANT documented in this encounter Plan of Treatment Upcoming Encounters Date Type Department Care Team (Late st Contact Info) Description 07/25/2024 10:00 AM UNDERTAKER ASSISTANT Office Visit [facility] Family & Internal Medicine - [place] [address] [place] [address] Keyonna Armstrong APNP [address] [place] [address] 07/31/2024 10:15 AM UNDERTAKER ASSISTANT Office Visit [facility] [address] [place], [place] [phone] Pepe Mitchell MD Three [facility]. [facility] [address] [place], [place] [phone] documented as of this encounter Procedures Procedure Name Priority Date/Time Associated Diagnosis Comments VITAMIN D, 25 OH TOTAL Routine 8 8:19 AM UNDERTAKER ASSISTANT VITAMIN B1 WHOLE BLOOD Routine 8 8:19 AM UNDERTAKER ASSISTANT PTH - INTACT Routine 07/11/2018 8:19 AM UNDERTAKER ASSISTANT HEMOGLOBIN, GLYCOSYLATED Routine 07/11/2018 8:19 AM UNDERTAKER ASSISTANT IRON SAT PANEL (IRON,IBC,%SAT) Routine 07/11/2018 8:19 AM UNDERTAKER ASSISTANT VITAMIN B-12 Routine 07/11/2018 8:19 AM UNDERTAKER ASSISTANT COMPREHENSIVE METABOLIC PANEL Routine 07/11/2018 8:19 AM UNDERTAKER ASSISTANT LIPID PANEL Routine 07/11/2018 8:19 AM UNDERTAKER ASSISTANT FOLIC ACID SERUM Routine 07/11/2018 8:19 AM UNDERTAKER ASSISTANT CBC W/DIFF AUTOMATED Routine 07/11/2018 8:19 AM UNDERTAKER ASSISTANT AMYLASE Routine 07/11/2018 8:19 AM UNDERTAKER ASSISTANT LIPASE Routine 07/11/2018 8:19 AM UNDERTAKER ASSISTANT FERRITIN Routine 07/11/2018 8:19 AM UNDERTAKER ASSISTANT COPPER Routine 07/11/2018 8:19 AM UNDERTAKER ASSISTANT documented in this encounter Results * (ABNORMAL) COPPER (07/11/2018 8:19 AM UNDERTAKER ASSISTANT) COPPER S/P/B 185(H) 70 - 175 mcg/dL [facility] Comment: This test was developed and its analytical performance characteristics have been determined by [facility]. It has not been cleared or approved by the US Food and Drug Administration. This assay has been validated pursuant to the CLIA regulations and is used for clinical purposes. 07/11/2018 8:19 AM UNDERTAKER ASSISTANT 07/11/2018 8:20 AM UNDERTAKER ASSISTANT Narrative [facility] - 07/11/2018 8:19 AM UNDERTAKER ASSISTANT FASTING:YES FASTING: YES Resulting Agency Comment Performing Organization Information: ?Site ID: [id number] ?Name: [facility] ?Address: [address] [place] [address] ?Director: Darrell Morris M.D., Ph.D us [facility] Edited Resu lt - Final [facility] [employer] [address] [place] [address], * (ABNORMAL) VITAMIN B1 WHOLE BLOOD (07/11/2018 8:19 AM UNDERTAKER ASSISTANT) VITAMIN B1 S/P/B 192(H) 78 - 185 nmol/L [facility] [employer] Comment: Vitamin supplementation within 24 hours prior to blood draw may affect the accuracy of results. This test was developed and its analytical performance characteristics have been determined by [facility]. It has not been cleared or approved by FDA. This assay has been validated pursuant to the CLIA regulations and is used for clinical purposes. 07/11/2018 8:19 AM UNDERTAKER ASSISTANT 07/11/2018 8:20 AM UNDERTAKER ASSISTANT Narrative [facility] - 07/11/2018 8:19 AM UNDERTAKER ASSISTANT FASTING:YES FASTING: YES Resulting Agency Comment Performing Organization Information: ?Site ID: [id number] ?Name: [facility] ?Address: [address] [place] [address] ?Director: Darrell Morris M.D., Ph.D [facility] Patti [facility] Edited [facility] Performing Organization Address [facility] Phone Number [facility] [address] [place] [address], * (ABNORMAL) LIPASE (07/11/2018 8:19 AM UNDERTAKER ASSISTANT) LIPASE 69(H) 7 - 60 U/L [facility] 07/11/2018 8:19 AM UNDERTAKER ASSISTANT 07/11/2018 8:20 AM UNDERTAKER ASSISTANT Narrative [facility] - 07/11/2018 8:19 AM UNDERTAKER ASSISTANT FASTING:YES FASTING: YES Resulting Agency Comment Performing Organization Information: ?Site ID: [place] ?Name: [facility] ?Address: [address] [address] ?Director: Servando Cervantes D.O., MPH [facility] Edited [facility] Performing Organization Address [facility] de Phone Number [facility] * HEMOGLOBIN, GLYCOSYLATED (07/11/2018 8:19 AM UNDERTAKER ASSISTANT) HGB A1C 5.1 <5.7 % of total [...] diagnosis of diabetes in children. According to [place] Diabetes Association (ADA) guidelines, hemoglobin A1c <7.0% represents optimal control in non- diabetic patients. Different metrics may apply to specific patient populations. Standards of Medical Care in Diabetes(ADA). ?? 07/11/2018 8:19 AM UNDERTAKER ASSISTANT 07/11/2018 8:20 AM UNDERTAKER ASSISTANT Narrative [facility] - 07/11/2018 8:19 AM UNDERTAKER ASSISTANT FASTING:YES FASTING: YES Resulting Agency Comment Performing Organization Information: ?Site ID: [place] ?Name: [facility] ?Address: [address] [place] [address] ?Director: Servando Cervantes D.O., MPH [facility] Edited Resu lt - Final [facility] * AMYLASE (07/11/2018 8:19 AM UNDERTAKER ASSISTANT) AMYLASE S/P/B 84 21 - 101 U/L [facility] 07/11/2018 8:19 AM UNDERTAKER ASSISTANT 07/11/2018 8:20 AM UNDERTAKER ASSISTANT Narrative [facility] - 07/11/2018 8:19 AM UNDERTAKER ASSISTANT FASTING:YES FASTING: YES Resulting Agency Comment Performing Organization Information: ?Site ID: [place] ?Name: [facility] ?Address: [address] [address] ?Director: Servando Cervantes D.O., MPH [facility] Edited [facility] - Final Performing Organization Address City/[facility]/ZIP Co de Phone Number [facility] * VITAMIN D, 25 OH (07/11/2018 8:19 AM UNDERTAKER ASSISTANT) VITAMIN D 25 HYDROXY TOTAL S/P/B 41 [...] D, (D2,D3), LC/MS/MS is recommended: order code [id number] (patients >2yrs). For more information on this test, go to: http://education.HungerTime/faq/LEB405 (This link is being provided for informational/educational purposes only.) 07/11/2018 8:19 AM UNDERTAKER ASSISTANT 07/11/2018 8:20 AM UNDERTAKER ASSISTANT Narrative [facility] - 07/11/2018 8:19 AM UNDERTAKER ASSISTANT FASTING:YES FASTING: YES Resulting Agency Comment Performing Organization Information: ?Site ID: [place] ?Name: [facility] ?Address: [address] [address] ?Director: Servando Cervantes D.O., MPH [facility] Edited Resu lt - Final Performing Organization Address City/[facility]/ZIP Co de Phone Number [facility] * PTH - INTACT (07/11/2018 8:19 AM UNDERTAKER ASSISTANT) PTH INTACT 55 14 - 64 pg/mL [...] or Low Normal ?High 07/11/2018 8:19 AM UNDERTAKER ASSISTANT 07/11/2018 8:20 AM UNDERTAKER ASSISTANT Narrative [facility] - 07/11/2018 8:19 AM UNDERTAKER ASSISTANT FASTING:YES FASTING: YES Resulting Agency Comment Performing Organization Information: ?Site ID: [place] ?Name: [facility] ?Address: [address] [place] [address] ?Director: Servando Cervantes D.O., MPH [facility] Edited Resu lt - Final [facility] * VITAMIN B-12 (07/11/2018 8:19 AM UNDERTAKER ASSISTANT) VITAMIN B12 S/P/B 350 200 - 1,100 [...] pg/mL will have symptoms. 07/11/2018 8:19 AM UNDERTAKER ASSISTANT 07/11/2018 8:20 AM UNDERTAKER ASSISTANT Narrative [facility] - 07/11/2018 8:19 AM UNDERTAKER ASSISTANT FASTING:YES FASTING: YES Resulting Agency Comment Performing Organization Information: ?Site ID: [place] ?Name: [facility] ?Address: [address] [place] [address] ?Director: Servando Cervantes D.O., MPH us Key[facility] Edited Resu lt - Final [facility] * FOLIC ACID SERUM (07/11/2018 8:19 AM UNDERTAKER ASSISTANT) FOLATE 22.5 ng/mL [facility] Comment: ? Reference Range ? Low: ? <3.4 ? Borderline: ?3.4-5.4 ? Normal: ?>5.4 07/11/2018 8:19 AM UNDERTAKER ASSISTANT 07/11/2018 8:20 AM UNDERTAKER ASSISTANT Narrative [facility] - 07/11/2018 8:19 AM UNDERTAKER ASSISTANT FASTING:YES FASTING: YES Resulting Agency Comment Performing Organization Information: ?Site ID: [place] ?Name: [facility] ?Address: [facility] [place] [address] ?Director: Servando Cervantes D.O. MPH [facility] Edited [facility] - Final Performing Organization Address [facility] de Phone Number [facility] * FERRITIN (07/11/2018 8:19 AM UNDERTAKER ASSISTANT) FERRITIN 10 10 - 232 ng/mL [facility] 07/11/2018 8:19 AM UNDERTAKER ASSISTANT 07/11/2018 8:20 AM UNDERTAKER ASSISTANT Narrative [facility] - 07/11/2018 8:19 AM UNDERTAKER ASSISTANT FASTING:YES FASTING: YES Resulting Agency Comment Performing Organization Information: ?Site ID: [place] ?Name: [facility] ?Address: [facility] [place] [address] ?Director: Servando Cervantes D.O., MPH [facility] Edited [facility] Final Performing Organization Address [facility] Phone Number [facility] * CBC W/DIFF AUTOMATED (07/11/2018 8:19 AM UNDERTAKER ASSISTANT) WBC 10.0 3.8 - 10.8 Thousand/u L [...] [facility] 07/11/2018 8:19 AM UNDERTAKER ASSISTANT 07/11/2018 8:20 AM UNDERTAKER ASSISTANT Narrative [facility] - 07/11/2018 8:19 AM UNDERTAKER ASSISTANT FASTING:YES FASTING: YES Resulting Agency Comment Performing Organization Information: ?Site ID: [place] ?Name: [facility] ?Address: [address] [place] [address] ?Director: Servando Cervantes D.O., MPH [facility] Edited Resu lt - Final [facility] * COMPREHENSIVE METABOLIC PANEL (07/11/2018 8:19 AM UNDERTAKER ASSISTANT) GLUCOSE 92 65 - 99 mg/dL [facility] [...] [facility]ST[facility] 07/11/2018 8:19 AM UNDERTAKER ASSISTANT 07/11/2018 8:20 AM UNDERTAKER ASSISTANT Narrative [facility] - 07/11/2018 8:19 AM UNDERTAKER ASSISTANT FASTING:YES FASTING: YES Resulting Agency Comment Performing Organization Information: ?Site ID: [place] ?Name: [facility] ?Address: [address] [place] [address] ?Director: Servando Cervantes D.O., MPH us Keyonna [facility] Edited Resu lt - Final [facility] * (ABNORMAL) IRON SATURATION PANEL (07/11/2018 8:19 AM UNDERTAKER ASSISTANT) IRON 132 40 - 190 mcg/dL [facility] IRON BINDING CAPACITY 463(H) 250 - 450 mcg/dL (calc) [facility] % IRON SATURATION 29 11 - 50 % (calc) [facility] 07/11/2018 8:19 AM UNDERTAKER ASSISTANT 07/11/2018 8:20 AM UNDERTAKER ASSISTANT Narrative [facility] - 07/11/2018 8:19 AM UNDERTAKER ASSISTANT FASTING:YES FASTING: YES Resulting Agency Comment Performing Organization Information: ?Site ID: [place] ?Name: [facility] ?Address: [address] [address] ?Director: Servando Cervantes D.O., MPH us [facility] Edited Resu lt - Final [facility] * (ABNORMAL) LIPID PANEL (07/11/2018 8:19 AM UNDERTAKER ASSISTANT) CHOLESTEROL 139 <200 mg/dL [facility] - [...] LDL-C. Deep SS et al. JAMAR. 2013;310(19): 6751-3396 (http://education.FiveRuns.Stylewhile/faq/VKD761) CHOL/HDL RATIO 3.7 <5.0 (calc) [facility] NON HDL CHOLESTEROL 101 <130 mg/dL (calc) [facility] Comment: For patients with diabetes plus 1 major ASCVD risk factor, treating to a non-HDL-C goal of <100 mg/dL (LDL-C of <70 mg/dL) is considered a therapeutic option. 07/11/2018 8:19 AM UNDERTAKER ASSISTANT 07/11/2018 8:20 AM UNDERTAKER ASSISTANT Narrative [facility] - 07/11/2018 8:19 AM UNDERTAKER ASSISTANT FASTING:YES FASTING: YES Resulting Agency Comment Performing Organization Information: ?Site ID: [place] ?Name: [facility] ?Address: [address] [address] ?Director: Servando Cervantes D.O., MPH us Keyonna [facility] Edited Resu lt - Final [facility] documented in this encounter Visit Diagnoses Not on filedocumented in this encounter Care Teams Events Manager Relationship Specialty Start Date End Date Keyonna Armstrong APNP [address] [place] [address] PCP - General NURSE PRACTITIONER 05/06/18 documented as of this encounter
--- OUTSIDE RECORDS SUMMARY | 2024-07-11 00:17 | XMS_ITS | Encounter Summary ---
Author Organization [facility] Address [address] [place] [address]. [place], [place] [address] [place] [address] Care Team Providers Care Ballast Cleaning Operator Name Role Phone Keyonna Armstrong Primary Care Provider [phone] Reason for Visit * Reason Onset Date Comments Lab Results 07/18/2018 Encounter Details Date Type Department Care Team (Late st Contact Info) Description 07/18/2018 Telephone [facility] [address] [place] [address] Keyonna Armstrong APNP [address] [place] [address] Lab Results Social History Tobacco [...] CDT Gender Identity Female 07/17/2022 10:27 AM PROGRAM MANAGER RN Sexual Orientation Straight 07/17/2022 10 :27 AM PROGRAM MANAGER RN documented as of this encounter Progress Notes * Nenita Young MA - 07/26/2018 8:18 AM CST Patient notified -sjs RAM MANAGER RN * Nenita Young MA - 07/25/2018 11:09 AM CST [id number] RAM MANAGER RN * YOBANI Cruz - 07/25/2018 9:10 AM CST It looks like according to my last note I had ordered a CMP to recheck her liver enzymes. You can let her know these had returned to normal. RAM MANAGER RN * Criss Potter RN - 07/25/2018 8:36 AM CST Spoke with patient who states that she is following up with [facility] regarding the labs that they had ordered. Patient is wondering if you reviewed the labs that you had ordered. She states that she has surgery on 08/07/17 and was waiting to get the ok for her lab work. RAM MANAGER RN * Criss Potter RN - 07/24/2018 12:41 PM CST lmtc RAM MANAGER RN * Flora Blackwell MA - 07/19/2018 12:59 PM CST Lm 07/19/18 tn RAM MANAGER RN * Flora Blackwell MA - 07/19/2018 12:59 PM CST ----- Message from YOBANI Cruz sent at 07/19/2018 11:32 AM PROGRAM MANAGER RN ----- With further investigation, it looks like these labs were ordered from a provider from [facility] and justCC'd to me. Make sure pt has follow up with [facility] provider to discuss these labs. RAM MANAGER RN * Flora Blackwell MA - 07/19/2018 10:53 AM CST [facility] and these results were only CC to us. Ordering provider was Dr. Elli Hernandez out of [facility]. RAM MANAGER RN * YOBANI Cruz - 07/18/2018 8:21 PM [...] Dr. Andrzej Barrios as well. Possibly her? RAM MANAGER RN * Criss Potter RN - 07/18/2018 5:37 PM CST Under additional details on the final result it looks like you were the ordering provider for theselabs RAM MANAGER RN * YOBANI Cruz - 07/18/2018 5:01 PM CST Can we find out who ordered these labs? I may be responsible for most of the labs, but the copper, Vit B1 and lipase I'm not sure of. Is there anyway we could find out who ordered these as they need to be forwarded to the correct provider. RAM MANAGER RN documented in this encounter Plan of Treatment Upcoming Encounters Date Type Department Care Team (Late st Contact Info) Description 07/25/2024 10:00 AM PROGRAM MANAGER RN Office Visit [facility] Medical Group Family & Internal Medicine - [address] [address] Keyonna Armstrong APNP [facility] [place] [address] 07/31/2024 10:15 AM PROGRAM MANAGER RN Office Visit [facility], [facility] [address] [place] [address] Pepe Mitchell MD Three [facility]. [facility] [address] [place], [place] [phone] documented as of this encounter Visit Diagnoses Not on filedocumented in this encounter Care Teams Ballast Cleaning Operator Relationship Specialty Start Date End Date Keyonna Armstrong APNP [address] [place] [address] PCP - General NURSE PRACTITIONER 05/06/18 documented as of this encounter
--- OUTSIDE RECORDS SUMMARY | 2024-07-11 00:17 | XMS_ITS | Encounter Summary ---
Author Organization [facility] Address [address] [place] [address]. [place], [place] [address] [place] [address] Care Team Providers Care Assistant Director Name Role Phone Keyonna Armstrong Primary Care Provider +1 [phone] Encounter Details Date Type Department Care Team [...] CDT Gender Identity Female 07/17/2022 10:27 AM PURCHASING MANAGER/SALES Sexual Orientation Straight 07/17/2022 10 :27 AM PURCHASING MANAGER/SALES documented as of this encounter Plan of Treatment Upcoming Encounters Date Type Department Care Team (Late st Contact Info) Description 07/25/2024 10:00 AM PURCHASING MANAGER/SALES Office Visit [facility] Medical Group Family & Internal Medicine - [place] [address] [place] [address] Keyonna Armstrong APNP [address] [place] [address] 07/31/2024 10:15 AM PURCHASING MANAGER/SALES [facility] [address] [address] Pepe Mitchell MD Three [facility]. [facility] [address] [place] [address] documented as of this encounter Visit Diagnoses Not on filedocumented in this encounter Care Teams Assistant Director Relationship Specialty Start Date End Date Keyonna Armstrong APNP [address] [place] [address] PCP - General NURSE PRACTITIONER 05/06/18 documented as of this encounter
--- OUTSIDE RECORDS SUMMARY | 2024-07-11 00:17 | XMS_ITS | Encounter Summary ---
Author Organization [facility] Address [address] [place] [address]. [place] [id number] [place] [address] Care Team Providers Care Principal Trainer Name Role Phone Keyonna Armstrong Primary Care Provider [phone] Reason for Visit * Reason Onset Date Comments Refill Request 06/28/2018 Encounter Details Date Type Department Care Team (Late st Contact Info) Description 06/28/2018 Telephone [facility] Medical Group Family & Internal Medicine [facility] [address] [place] [address] Keyonna Armstrong APNP [address] [place] [address] Refill Request Social History Tobacco [...] CDT Gender Identity Female 07/17/2022 10:27 AM IT BUSINESS SYSTEMS ANALYST Sexual Orientation Straight 07/17/2022 10 :27 AM IT BUSINESS SYSTEMS ANALYST documented as of this encounter Progress Notes * Precious Oviedo - 06/28/2018 10:19 AM CST PT CALLED [facility] THREE DAYS AGO FOR REFILL OF LORAZEPAM 0.5 MG THREE TIMES DAILY. OK TO FILL? BUSINESS SYSTEMS ANALYST documented in this encounter Plan of Treatment Upcoming Encounters Date Type Department Care Team (Late st Contact Info) Description 07/25/2024 10:00 AM IT BUSINESS SYSTEMS ANALYST Office Visit [facility] Medical Group Family & Internal Medicine - [place] [address] [place] [address] Keyonna Armstrong APNP [address] [place] [address] 07/31/2024 10:15 AM IT BUSINESS SYSTEMS ANALYST Office Visit [facility], [facility] [address] [place], [place] [address] Pepe Mitchell MD [facility]. [facility] [address] [place], [place] [phone] documented as of this encounter Visit Diagnoses Diagnosis Anxiety- Primary Anxiety state, unspecified documented in this encounter Care Teams Principal Trainer Relationship Specialty Start Date End Date Keyonna Armstrong APNP [address] [place] [address] PCP - General NURSE PRACTITIONER 05/06/18 documented as of this encounter
--- OUTSIDE RECORDS SUMMARY | 2024-07-11 00:17 | XMS_ITS | Encounter Summary ---
Author Organization [facility] Address [address] [place] [address]. [place] [phone] Care Team Providers Care Staking Press Operator Name Role Phone Keyonna Armstrong Primary Care Provider [phone] [phone] Reason for Visit * Reason Onset Date Comments Refill Request 09/19/2018 Metformin Encounter Details Date Type Department Care Team (Late st Contact Info) Description 09/19/2018 Telephone [facility] Medical Group Family & Internal Medicine [facility] [address] [place] [address] Keyonna Armstrong APNP [address] [place] [address] Refill Request (Metformin ) Social [...] Gender Identity Female 07/17/2022 10:27 AM COMPUTER NETWORK ENGINEER Sexual Orientation Straight 07/17/2022 10 :27 AM COMPUTER NETWORK ENGINEER documented as of this encounter Progress Notes * Zita Cook MA - 09/19/2018 3:37 PM CST Received a faxed request for Metformin 500mg 1 tabs QAM and 2 tabs QHS #[id number] Last OV 09/03/18 UTER NETWORK ENGINEER documented in this encounter Plan of Treatment Upcoming Encounters Date Type Department Care Team (Late st Contact Info) Description 07/25/2024 10:00 AM COMPUTER NETWORK ENGINEER Office Visit [facility] Medical Group Family & Internal Medicine - [place] [address] [place] [address] Keyonna Armstrong APNP [address] [place] [address] 07/31/2024 10:15 AM COMPUTER NETWORK ENGINEER Office Visit [facility], [facility] [address] [place], [place] [phone] Pepe Mitchell MD [facility]. [facility] [address] [place], [place] [phone] documented as of this encounter Visit Diagnoses Diagnosis DM (diabetes mellitus) (CMS/HCC [facility]/HCC) Type II or unspecified type diabetes mellitus without mention of complication, not stated as uncontrolled documented in this encounter Care Teams Staking Press Operator Relationship Specialty Start Date End Date Keyonna Armstrong APNP [facility] [place] [address] PCP - General NURSE PRACTITIONER 05/06/18 documented as of this encounter
--- OUTSIDE RECORDS SUMMARY | 2024-07-11 00:17 | XMS_ITS | Encounter Summary ---
Author Organization [facility] Address [address] [place] [address]. [place], [place] [id number] [place] [address] Care Team Providers Care Brusher Name Role Phone Keyonna Armstrong Primary Care Provider [phone] Encounter Details Date Type Department Care Team [...] CDT Gender Identity Female 07/17/2022 10:27 AM FIELD CONTACT TECHNICIAN Sexual Orientation Straight 07/17/2022 10 :27 AM FIELD CONTACT TECHNICIAN documented as of this encounter Plan of Treatment Upcoming Encounters Date Type Department Care Team (Late st Contact Info) Description 07/25/2024 10:00 AM FIELD CONTACT TECHNICIAN Office Visit [facility] Family & Internal Medicine - [place] [address] [place] [address] Keyonna Armstrong APNP [address] [place] [address] 07/31/2024 10:15 AM FIELD CONTACT TECHNICIAN Office Visit [facility], [address] [address] Pepe Mitchell MD Three [facility]. [facility] [place] [address] [place] [address] documented as of this encounter Visit Diagnoses Not on filedocumented in this encounter Care Teams Brusher Relationship Specialty Start Date End Date Keyonna Armstrong APNP [address] [place] [address] PCP - General NURSE PRACTITIONER 05/06/18 documented as of this encounter
--- OUTSIDE RECORDS SUMMARY | 2024-07-11 00:17 | XMS_ITS | Encounter Summary ---
Author Organization [facility] Address [address] [place] [address]. [place], [place] [address] [place] [address] Care Team Providers Care Mechanical Press Operator Name Role Phone Keyonna Armstrong Primary Care Provider [phone] Encounter Details Date Type Department Care Team [...] Gender Identity Female 07/17/2022 10:27 AM TECHNICIAN ASSISTANT Sexual Orientation Straight 07/17/2022 10 :27 AM TECHNICIAN ASSISTANT documented as of this encounter Plan of Treatment Upcoming Encounters Date Type Department Care Team (Late st Contact Info) Description 07/25/2024 10:00 AM TECHNICIAN ASSISTANT Office Visit [facility] Family & Internal Medicine - [place] [address] [place] [address] Keyonna Armstrong APNP [address] [place] [address] 07/31/2024 10:15 AM TECHNICIAN ASSISTANT Office Visit [facility] [place] [address] [place] [address] Pepe Mitchell MD Three [facility]. [facility] [address] [place] [address] documented as of this encounter Visit Diagnoses Not on filedocumented in this encounter Care Teams Mechanical Press Operator Relationship Specialty Start Date End Date Keyonna Armstrong APNP [address] [place] [address] PCP - General NURSE PRACTITIONER 05/06/18 documented as of this encounter
--- OUTSIDE RECORDS SUMMARY | 2024-07-11 00:17 | XMS_ITS | Encounter Summary ---
Author Organization [facility] Address [address] [place] [address]. [place], [place] [address] [place] [address] Care Team Providers Care Jogger Operator Name Role Phone Keyonna Armstrong Primary Care Provider [phone] Reason for Visit * Reason Onset Date Comments Medication 09/24/2018 Encounter Details Date Type Department Care Team (Late st Contact Info) Description 09/24/2018 Telephone [facility] Family & Internal Medicine [facility] [address] [place] [address] Keyonna Armstrong APNP [address] [place] [address] Medication Social History Tobacco Use [...] CDT Gender Identity Female 07/17/2022 10:27 AM NANOTECHNOLOGIST Sexual Orientation Straight 07/17/2022 10 :27 AM NANOTECHNOLOGIST documented as of this encounter Progress Notes * Nenita Young MA - 09/24/2018 4:32 PM CST Pharmacy notified and Keyonna made aware-sjs TECHNOLOGIST * Kel Solo MD - 09/24/2018 3:08 PM CST Okay for refill just make sure that Keyonna is aware she is asking for refills. TECHNOLOGIST * Indy Kang - 09/24/2018 9:16 AM CST Pt needs refills of lorazepam and zolpidem. Written in supervising physician's name TECHNOLOGIST documented in this encounter Plan of Treatment Upcoming Encounters Date Type Department Care Team (Late st Contact Info) Description 07/25/2024 10:00 AM NANOTECHNOLOGIST Office Visit [facility] Family & Internal Medicine [facility] [address] [place] [address] Keyonna Armstrong APNP [address] [place] [address] 07/31/2024 10:15 AM NANOTECHNOLOGIST Office Visit [facility] THREE [facility], [facility] [address] [place] [address] Pepe Mitchell MD Three [facility]. [facility] [address] [place] [address] documented as of this encounter Visit Diagnoses Not on filedocumented in this encounter Care Teams Jogger Operator Relationship Specialty Start Date End Date Keyonna Armstrong APNP [address] [place] [address] PCP - General NURSE PRACTITIONER 05/06/18 documented as of this encounter
--- OUTSIDE RECORDS SUMMARY | 2024-07-11 00:17 | XMS_ITS | Encounter Summary ---
Author Organization [facility] Address [address] [place] [address]. [place] [id number] [place] [address] Care Team Providers Care Reference Library Assistant Name Role Phone Keyonna Armstrong Primary Care Provider [phone] Reason for Visit * Reason Onset Date Comments Medication Request 09/21/2018 Encounter Details Date Type Department Care Team (Late st Contact Info) Description 09/21/2018 Telephone [facility] Family & Internal Medicine [facility] [address] [place] [address] Keyonna Armstrong APNP [address] [place] [address] Medication Request Social History Tobacco [...] CDT Gender Identity Female 07/17/2022 10:27 AM SPORTS INFORMATION DIRECTOR Sexual Orientation Straight 07/17/2022 10 :27 AM SPORTS INFORMATION DIRECTOR documented as of this encounter Progress Notes * Nenita Young MA - 09/23/2018 1:50 PM CST Cnc Set Up Operator appt 10/09/18-sjs TS INFORMATION DIRECTOR * Nenita Young MA - 09/23/2018 11:35 AM CST [id number] TS INFORMATION DIRECTOR * YOBANI Cruz - 09/21/2018 8:45 AM CST Please let pt know that I did co sign the fill of her OCP, but will no longer be filling these. I have had the conversation with her several times regarding the importance of her seeing a SHEET METAL MECHANIC to discuss alternatives to this. Please stress to her, AGAIN, the importance of following with SHEET METAL MECHANIC for this. I have discussed with her several times the importance of this and risks involved of continued OCP use. TS INFORMATION DIRECTOR documented in this encounter Plan of Treatment Upcoming Encounters Date Type Department Care Team (Late st Contact Info) Description 07/25/2024 10:00 AM SPORTS INFORMATION DIRECTOR Office Visit [facility] Family & Internal Medicine - [place] [address] [place] [address] Keyonna Armstrong APNP [address] [place] [address] 07/31/2024 10:15 AM SPORTS INFORMATION DIRECTOR Office Visit [facility] THREE [facility], [facility] [address] [place] [address] Pepe Mitchell MD Three [facility]. [place] [address] [place] [address] documented as of this encounter Visit Diagnoses Not on filedocumented in this encounter Care Teams Reference Library Assistant Relationship Specialty Start Date End Date Keyonna Armstrong APNP [address] [place] [address] PCP - General NURSE PRACTITIONER 05/06/18 documented as of this encounter
--- OUTSIDE RECORDS SUMMARY | 2024-07-11 00:17 | XMS_ITS | Encounter Summary ---
Author Organization [facility] Address [facility]. [place] [id number] [place] [address] Care Team Providers Care Pharmacy Assistant Name Role Phone Keyonna Armstrong Primary Care Provider [phone] Reason for Referral * Consultation (Routine) - Closed Specialty Diagnoses / Procedures Referred By Contgoldy t Referred To Contact OBGYN Diagnoses Well woman exam with routine gynecological exam Keyonna Armstrong APNP [address] [place] [address] Phone: tel: fax: Jonaa You MD [address] [place] [address] Phone: tel: fax: Referral ID Status Reason Start Date Expiration Date V isits Requested Visits Authorized [id number] Closed Specialty Services 09/13/2018 12/12/2018 3 3 EXTERMINATOR Reason for Visit * Reason Onset Date Comments Referral 08/29/2018 Encounter Details Date Type Department Care Team (Late st Contact Info) Description 08/29/2018 Telephone [facility] Family & Internal Medicine - [place] [address] [place] [address] Keyonna Armstrong APNP [address] [place] [address] Referral Social History Tobacco Use [...] CDT Gender Identity Female 07/17/2022 10:27 AM MOTH EXTERMINATOR Sexual Orientation Straight 07/17/2022 10 :27 AM MOTH EXTERMINATOR documented as of this encounter Progress Notes * Nenita Young MA - 08/29/2018 12:57 PM CST Referral placed -sjs EXTERMINATOR * YOBANI Cruz - 08/29/2018 11:47 AM CST I think a referral has already been placed. If not, please initiate one EXTERMINATOR * Precious Oviedo - 08/29/2018 10:59 AM CST Pt needs referral to wood fence erector in [facility], stated that she could not remember their name, and [facility] so referral will need to be approved through them She also advised she is on last pack of pills and will need to see one soon EXTERMINATOR EXTERMINATOR documented in this encounter Plan of Treatment Upcoming Encounters Date Type Department Care Team (Late st Contact Info) Description 07/25/2024 10:00 AM MOTH EXTERMINATOR Office Visit [facility] Family & Internal Medicine - [place] [address] [place] [address] Keyonna Armstrong APNP [facility] [place] [address] 07/31/2024 10:15 AM MOTH EXTERMINATOR Office Visit [facility] THREE [facility], [facility] [address] [place] [address] Pepe Mitchell MD Three [facility]. [facility] [address] [place] [address] Scheduled Referrals Name Type Priority Associated Diagnoses Orde r Schedule Ambulatory referral to Obstetrics/Gynecology Referral Routine Well woman exam with routine gynecological exam Ordered: 08/29/2018 documented as of this encounter Visit Diagnoses Diagnosis Well woman exam with routine gynecological exam- Primary Routine gynecological examination documented in this encounter Care Teams Pharmacy Assistant Relationship Specialty Start Date End Date Keyonna Armstrong APNP [address] [place] [address] PCP - General NURSE PRACTITIONER 05/06/18 documented as of this encounter
--- OUTSIDE RECORDS SUMMARY | 2024-07-11 00:17 | XMS_ITS | Encounter Summary ---
Author Organization [facility] Address [address] [place] [address]. [place] [id number] [place] [address] Care Team Providers Care Microbiology Quality Control Technician Name Role Phone Keyonna Armstrong Primary Care Provider [phone] Reason for Visit * Reason Comments Follow Up Encounter Details Date Type Department Care Team (Late st Contact Info) Description 09/03/2018 11:40 AM DATABASE ENGINEER Office Visit [facility] Family & Internal Medicine [facility] [address] [place] [address] Keyonna Armstrong APNP [address] [place] [address] Follow Up Social History Tobacco [...] CDT Gender Identity Female 07/17/2022 10:27 AM DATABASE ENGINEER Sexual Orientation Straight 07/17/2022 10 :27 AM DATABASE ENGINEER documented as of this encounter Last Filed Vital Signs Vital Sign Reading Time Taken Comments Blood Pressure 143/89 09/03/2018 11:39 AM DATABASE ENGINEER Pulse 115 09/03/2018 11:39 AM DATABASE ENGINEER Temperature - - Respiratory Rate 16 09/03/2018 11:39 AM DATABASE ENGINEER Oxygen Saturation 97% 09/03/2018 11:39 AM DATABASE ENGINEER Inhaled Oxygen Concentration - - Weight 129.3 kg (285 lb) 09/03/2018 11:39 AM DATABASE ENGINEER Height 162.6 cm (5' 4) 09/03/2018 11:39 AM DATABASE ENGINEER Body Mass Index 48.92 09/03/2018 11:39 AM DATABASE ENGINEER documented in this encounter Progress Notes * Keyonna Armstrong, JAMIENP - 09/03/2018 11:40 AM CST Images from the original note were not included. [facility] FAMILY AND INTERNAL MEDICINE OFFICE VISIT Reason for Visit: Follow Up History of Present Illness: Pt here today for routine follow up of chronic health conditions. Pt states she had surgery on her gallbladder about a month ago. She had this done at [facility] and states surgery went well, no complications [...] tablet; Refill: 1 Pt given recommendations for [facility] to discuss alternatives to OCP. Once again, I had a discussion with pt regarding risks, benefits and side effects of OCP, especially at her age. Would like for her tofollow up with [facility] to discuss alternatives to this. Pt verbalized understanding and states will make appt. Over 50% of time of today's 30 min appt was spent in discussion/counseling. Orders Placed This Encounter ??? ibuprofen 800 MG tablet ??? amlodipine 5 MG tablet Cannot display discharge medications since this is not an admission. PCP: YOBANI Cruz 09/04/2018 BASE ENGINEER documented in this encounter Plan of Treatment Upcoming Encounters Date Type Department Care Team (Late st Contact Info) Description 07/25/2024 10:00 AM DATABASE ENGINEER Office Visit [facility] Family & Internal Medicine - [place] [address] [place] [address] Keyonna Armstrong APNP [address] [place] [address] 07/31/2024 10:15 AM DATABASE ENGINEER Office Visit [facility] THREE [facility] [place] [address] [place] [address] Pepe Mitchell MD [facility]. [facility] [address] [place] [address] documented as of this encounter Visit Diagnoses Diagnosis Obstructive sleep apnea- Primary Obstructive sleep apnea (adult) (pediatric) Essential hypertension Unspecified essential hypertension Morbid obesity ([facility]) Morbid obesity Anxiety Anxiety state, unspecified BMI 45.0-49.9, adult ([facility]) Body Mass Index 45.0-49.9, adult Right ovarian cyst Other and unspecified ovarian cyst documented in this encounter Care Teams Microbiology Quality Control Technician Relationship Specialty Start Date End Date Keyonna Armstrong APNP [address] [place] [address] PCP - General NURSE PRACTITIONER 05/06/18 documented as of this encounter
--- OUTSIDE RECORDS SUMMARY | 2024-07-11 00:18 | XMS_ITS | Encounter Summary ---
Author Organization [facility] Address [address] [place] [address]. [place], [place] [address] [place] [address] Care Team Providers Care Extension Forester Name Role Phone Unavailable Primary Care Provider Unavailabl e Encounter Details Date Type Department Care Team (Latest Contact Info) Description 01/17/2018 Abstract [facility] Charline Thurman FNP [address] [place] [address] Social History Tobacco Use Types Packs/Day Years Used Date Smoking Tobacco: Never Assessed Comments Unknown Sex and Gender Information Value Date Recorded Sex Assigned at Not on file Legal Sex Female 5:47 PM CDT Gender Identity Female 07/17/2022 10:27 AM LIFE SCIENCES TEACHER Sexual Orientation Straight 07/17/2022 10 :27 AM LIFE SCIENCES TEACHER documented as of this encounter Plan of Treatment Upcoming Encounters Date Type Department Care Team (Late st Contact Info) Description 07/25/2024 10:00 AM LIFE SCIENCES TEACHER Office Visit [facility] - [place] [address] [place] [address] Keyonna Armstrong APNP [address] [place] [address] 07/31/2024 10:15 AM LIFE SCIENCES TEACHER Office Visit [facility] THREE [facility] [address] [place] [address] Pepe Mitchell MD [facility]. [place] [address] [place], [place] [address] documented as of this encounter Procedures Procedure Name Priority Date/Time Associated Diagnosis Comments DRUG SCREEN, GENERAL TOX, URINE Routine 01/17/2018 2:33 PM CDT DRUG SCREEN, GENERAL TOX, URINE Routine 01/17/2018 2:33 PM CDT documented in this encounter Results * (ABNORMAL) DRUG SCREEN, GENERAL TOX, URINE (01/17/2018 2:33 PM CDT) Pathologist [facility] PRESCRIBED DRUG 1 (U) Lorazepam [facility] TO [...] interpreting these drug results, please contact a [employer] Toxicology Specialist: [phone] ( ), M-F, 8am-6pm EST. Test Performed at: [facility] [address] ??[id number] ? IAM CASTELLON,PHD ALCOHOL METABOLITES (U) NEGATIVE [...] URINE ORDERABLES Final Result Performing Organization Address City/[facility]/ZIP Co de Phone Number [facility] [...] interpreting these drug results, please contact a [employer] Toxicology Specialist: [phone] ( ), M-F, 8am-6pm EST. Test Performed at: [facility] [address] ??[id number] ? IAM CASTELLON,PHD 01/17/2018 2:33 PM CDT 01/17/2018 2:33 PM CDT Narrative [facility] TO EPIC CONVERSION - 01/26/2018 8:00 AM CDT Result Communication: No patient communication needed at this time Charline Wileykayden [employer] COACH URINE ORDERABLES Final Result [facility] TO EPIC CONVERSION documented in this encounter Visit Diagnoses Not on filedocumented in this encounter
--- OUTSIDE RECORDS SUMMARY | 2024-07-11 00:18 | XMS_ITS | Encounter Summary ---
Author Organization [facility] Address [address] [place] [address]. [place], [place] [address] [place] [address] Care Team Providers Care Organic Lab Worker Name Role Phone Keyonna Armstrong Primary Care Provider [phone] Encounter Details Date Type Department Care Team (Latest Contact Info) Description 05/28/2018 Scan [facility] Claudia Kidd MD Social History Tobacco Use Types Packs/Day Years Used Date Smoking Tobacco: Never Assessed Comments Unknown Sex and Gender Information Value Date Recorded Sex Assigned at Not on file Legal Sex Female 5:47 PM CDT Gender Identity Female 07/17/2022 10:27 AM DIRECTOR OF PREMIUM SEAT SALES Sexual Orientation Straight 07/17/2022 10 :27 AM DIRECTOR OF PREMIUM SEAT SALES documented as of this encounter Plan of Treatment Upcoming Encounters Date Type Department Care Team (Late st Contact Info) Description 07/25/2024 10:00 AM DIRECTOR OF PREMIUM SEAT SALES Office Visit [facility] Family & Internal [facility] [address] [place] [address] Keyonna Armstrong APNP [facility] [place] [address] 07/31/2024 10:15 AM DIRECTOR OF PREMIUM SEAT SALES Office Visit [facility] THREE [facility] [address] [place] [address] Pepe Mitchell MD Three [facility]. [facility] [address] [place], [place] [address] documented as of this encounter Visit Diagnoses Not on filedocumented in this encounter Care Teams Organic Lab Worker Relationship Specialty Start Date End Date Keyonna Armstrong APNP [address] [place] [address] PCP - General NURSE PRACTITIONER 05/06/18 documented as of this encounter
--- OUTSIDE RECORDS SUMMARY | 2024-07-11 00:18 | XMS_ITS | Encounter Summary ---
Author Organization [facility] Address [address] [place] [address]. [place], [place] [address] [place] [address] Care Team Providers Care Welfare Case Worker Name Role Phone Unavailable Primary Care Provider Unavailabl e Encounter Details Date Type Department Care Team (Late st Contact Info) Description 02/26/2018 Abstract [facility] Medical Group Family & Internal Medicine [address] [place] [address] Keyonna Armstrong APNP [address] [place] [address] Social History Tobacco Use Types Packs/Day Years Used Date Smoking Tobacco: Never Assessed Comments Unknown Sex and Gender Information Value Date Recorded Sex Assigned at Not on file Legal Sex Female 5:47 PM CDT Gender Identity Female 07/17/2022 10:27 AM RED LEADER Sexual Orientation Straight 07/17/2022 10 :27 AM RED LEADER documented as of this encounter Last Filed [...] DAY; Therapy: 30May2012 to (Evaluate:22Apr2018) Requested for: 32Ggf2069; Last Rx:92Xbr1153 Ordered 2. HydroCHLOROthiazide 25 MG Oral Tablet; TAKE ONE TABLET BY MOUTH EVERY DAY; Therapy: 20May2012 to (Evaluate:73Iez3306) Requested for: 65Vwg7183; Last Rx:28Mjo0695 Ordered 3. Lisinopril 20 MG Oral Tablet; TAKE 1 TABLET BY MOUTH EVERY DAY; Therapy: 28Sep2017 to (Evaluate:27Apr2018) Requested for: 36Nkx3478; Last Rx:51Fvl8073 Ordered 4. LORazepam 0.5 MG Oral Tablet; TAKE 1 TABLET BY MOUTH 3 TIMES A DAY. Patient needs appointment for further refills; Therapy: 35Daw7180 to (Evaluate:01Mar2018) Requested for: 31Dec2017; Last Rx:00Ede3160 Ordered 5. MetFORMIN HCl - 500 MG Oral Tablet; TAKE 1 TABLET BY MOUTH EVERY MORNING AND THEN TAKE 2 TABLETS AT BEDTIME; Therapy: 24Dec2011 to (Evaluate:56Kla0436) Requested for: 09Jan2018; Last Rx:09Jan2018 Ordered 6. Methocarbamol 750 MG Oral Tablet; TAKE 1 TO 2 TABLETS 3 TIMES DAILY NEEDED FOR MUSCLE SPASM; Therapy: 11Aug2014 to (Evaluate:27Bwk7201) Requested for: 92Tfe8499; Last Rx:27Dkx3223 Ordered 7. Metoprolol Succinate ER 100 MG Oral Tablet Extended Release 24 Hour; TAKE 1 TABLET BY MOUTH EVERY DAY; Therapy: 08May2017 to (Evaluate:59Xen9652) Requested for: 18Oct2017; Last Rx:18Oct2017 Ordered 8. Ondansetron 4 MG Oral Tablet Disintegrating; DISSOLVE 1-2 TABLETS ON TONGUE EVERY 8 HOURS NEEDED FOR NAUSEA ..PATIENT NEEDS APPOINTMENT; Therapy: 02Mar2015 to (Evaluate:88Hah8257) Requested for: 20Nov2016; Last Rx:20Nov2016 Ordered 9. Pantoprazole Sodium 40 MG Oral Tablet Delayed Release; TAKE 1 TABLET EVERY DAY; Therapy: 08Jun2012 to (Evaluate:12Jun2018) Requested for: 59Moi0691; Last Rx:15Cee9774 Ordered 10. Polyethylene Glycol 3350 Oral Powder; MIX 1 CAPFUL (17GM) IN 8 OUNCES OF WATER, JUICE, OR TEA AND DRINK DAILY; Therapy: 81Lua4260 to (Evaluate:07Zbu0042) Requested for: 27Apr2017; Last Rx:27Apr2017 Ordered 11. Venlafaxine HCl ER 75 MG Oral Capsule Extended Release 24 Hour; TAKE ONE CAPSULE BY MOUTH EVERY MORNING AND TAKE 2 CAPSULES EVERY EVENING; Therapy: 13May2012 to (Evaluate:94Jmx6414) Requested for: 06Jan2018; Last Rx:06Jan2018 Ordered 12. Zolpidem Tartrate 10 MG Oral Tablet; TAKE 1 TABLET BY MOUTH AT BEDTIME NEEDED; Therapy: 85Ijs4821 to (Evaluate:08Mar2018) Requested for: 07Jan2018; Last Rx:07Jan2018 [...] a day for 5 minutes.; Status:Complete; Done: 24Usv5398 Ordered; For:Acute maxillary sinusitis; Ordered By:Keyonna Armstrong; 2. Seek Immediate Medical Attention if: You have a fever, headache, and vomiting, or have a stiff neck.; Status:Complete; Done: 41Jjj9649 Ordered; For:Acute maxillary sinusitis; Ordered By:Keyonna Armstrong; 3. Irrigate your nose twice a day.; Status:Complete; Done: 92Esq6446 Ordered; For:Acute maxillary sinusitis; Ordered By:Keyonna Armstrong; 4. Seek Immediate Medical Attention if: You have a severe headache that will not go away.; Status:Complete; Done: 62Qkg8623 Ordered; For:Acute maxillary sinusitis; Ordered By:Keyonna Armstrong; 5. Taking a hot steamy shower may help your condition.; Status:Complete; Done: 20Hfi8984 Ordered; For:Acute maxillary sinusitis; Ordered By:Keyonna Armstrong; 6. Seek Immediate Medical Attention if: You have signs of infection in or around the affected area.; Status:Complete; Done: 94Qwd3021 Ordered; For:Acute maxillary sinusitis; Ordered By:Keyonna Armstrong; 7. Seek Immediate Medical Attention if: Your eyesight becomes blurry or you have difficulty seeing.; Status:Complete; Done: 85Tzk0210 Ordered; For:Acute maxillary sinusitis; Ordered By:Keyonna Armstrong; Acute maxillary sinusitis, Bronchitis, acute 8. Cefuroxime Axetil 250 MG Oral Tablet; TAKE 1 TABLET EVERY 12 HOURS DAILY Rx By: Keyonna Armstrong; Dispense: 10 Days ; #:20 Tablet; Refill: 0; For: Acute maxillary sinusitis, Bronchitis, acute; TEX = N; Verified Transmission to [facility] #2510; Last Updated By: [facility]; 02/26/2018 8:40:21 AM Bronchitis, acute 9. Benzonatate 100 MG Oral Capsule; TAKE 1 CAPSULE 3 TIMES DAILY NEEDED Rx By: Keyonna Armstrong; Dispense: 10 Days ; #:30 Capsule; Refill: 0; For: Bronchitis, acute; TEX = N; Verified Transmission to [facility] #2510; Last Updated By: [facility]Scan; 02/26/2018 8:45:28 AM 10. Drink plenty of fluids.; Status:Complete; Done: 36Ath8695 Ordered; For:Bronchitis, acute; Ordered By:Keyonna Armstrong; 11. Call if: Breathing starts to have a wheeze or whistling sound.; Status:Complete; Done: 37Nfo7590 Ordered; For:Bronchitis, acute; Ordered By:Keyonna Armstrong; 12. Ventolin HFA 108 (90 Base) MCG/ACT Inhalation Aerosol Solution; INHALE 2 PUFFS BY MOUTH EVERY 4 TO 6 HOURS NEEDED Rx By: Keyonna Armstrong; Dispense: 0 Days ; #:1 X 18 GM Inhaler; Refill: 1; For: Bronchitis, acute; TEX = N; Verified Transmission to [facility] #2510; Last Updated By: [facility]Scan; 02/26/2018 8:42:15 AM 13. Status:Complete; Done: 64Oxb1188 Ordered; For:Bronchitis, acute; Ordered By:Keyonna Armstrong; 14. Call if: You have pain in the chest that gets worse with deep breathing or coughing.; Status:Complete; Done: 70Hdj6570 Ordered; For:Bronchitis, acute; Ordered By:Keyonna Armstrong; 15. Use a cool mist humidifier in the room.; Status:Complete; Done: 48Qlp2670 Ordered; For:Bronchitis, acute; Ordered By:Keyonna Armstrong; 16. Seek Immediate Medical Attention if: You are feeling short of breath.; Status:Complete; Done: 85Dgi2473 Ordered; For:Bronchitis, acute; Ordered By:Keyonna Armstrong; 17. Use a cough medicine to help you get adequate rest.; Status:Complete; Done: 94Gku9296 Ordered; For:Bronchitis, acute; Ordered By:Keyonna Armstrong; 18. Seek Immediate Medical Attention if: You have difficulty breathing, or you are short of breath more often.; Status:Complete; Done: 07Znd8602 Ordered; For:Bronchitis, acute; Ordered By:Keyonna Armstrong; 19. Seek Immediate Medical Attention if: You have pain in your chest.; Status:Complete; Done: 55Xce9861 Ordered; For:Bronchitis, acute; Ordered By:Keyonna Armstrong; 20. Seek Immediate Medical Attention if: You notice that breathing is rapid, more than 40 times a minute.; Status:Complete; Done: 26Tcz4786 Ordered; For:Bronchitis, acute; Ordered By:Keyonna Armstrong; Zee [...] Keyonna Armstrong APN; Feb 27 2018 4:27PM RED LEADER (Author) documented in this encounter Plan of Treatment Upcoming Encounters Date Type Department Care Team (Late st Contact Info) Description 07/25/2024 10:00 AM RED LEADER Office Visit [facility] Medical Group Family & Internal Medicine - [address] [address] Keyonna Armstrong APNP [address] [place] [address] 07/31/2024 10:15 AM RED LEADER Office Visit [facility], [facility] [address] [place], [place] [address] Pepe Mitchell MD Three [facility]. [facility] [address] [place] [address] documented as of this encounter Visit Diagnoses Not on filedocumented in this encounter
--- OUTSIDE RECORDS SUMMARY | 2024-07-11 00:18 | XMS_ITS | Encounter Summary ---
Author Organization [facility] Address [address] [place] [address]. [place], [place] [address] [place] [address] Care Team Providers Care Sweet Goods Machine Operator Name Role Phone Unavailable Primary Care Provider Unavailabl e Encounter Details Date Type Department Care Team (Late st Contact Info) Description 11/13/2017 Abstract [facility] Medical [facility] - [address], [address] [place] [address] Antoinette Ochoa MD [address] [facility] [address], [place] [address] Social History Tobacco Use Types Packs/Day Years Used Date Smoking Tobacco: Never Assessed Comments Unknown Sex and Gender Information Value Date Recorded Sex Assigned at Not on file Legal Sex Female 5:47 PM CDT Gender Identity Female 07/17/2022 10:27 AM FINAL FINISHER FORGING DIES Sexual Orientation Straight 07/17/2022 10 :27 AM FINAL FINISHER FORGING DIES documented as of this encounter Last Filed [...] BY MOUTH EVERY DAY; Therapy: 30May2012 to (Evaluate:78Enf0888) Requested for: 14Srp1937; Last Rx:48Qus2839 Ordered 4. HydroCHLOROthiazide 25 MG Oral Tablet; TAKE ONE TABLET BY MOUTH EVERY DAY; Therapy: 20May2012 to (Evaluate:05May2018) Requested for: 53Vrh4879; Last Rx:58Yna5023; Status: ACTIVE - Renewal Denied Ordered 5. Ibuprofen 800 MG Oral Tablet; TAKE 1 TABLET 3 TIMES DAILY WITH FOOD NEEDED for pain; Therapy: 11Aug2014 to (Evaluate:12May2016) Requested for: 66Yju8082; Last Rx:18Rev7675 Ordered 6. Lisinopril 20 MG Oral Tablet; TAKE 1 TABLET BY MOUTH EVERY DAY; Therapy: 28Sep2017 to (Evaluate:27Apr2018) Requested for: 29Oct2017; Last Rx:54Ete3670 Ordered 7. LORazepam 0.5 MG Oral Tablet; TAKE 1 TABLET BY MOUTH 3 TIMES A DAY NEEDED; Therapy: 03Xmi9355 to (Evaluate:18Nov2017) Requested for: 22Oct2017; Last Rx:19Oct2017; [...] NEEDED FOR MUSCLE SPASM; Therapy: 11Aug2014 to (Evaluate:45Qul2252) Requested for: 42Ogy4809; Last Rx:19Eyt1514 Ordered 10. Metoprolol Succinate ER 100 MG Oral Tablet Extended Release 24 Hour; TAKE 1 TABLET BY MOUTH EVERY DAY; Therapy: 08May2017 to (Evaluate:07Kie1667) Requested for: 18Oct2017; Last Rx:18Oct2017 Ordered 11. [...] DAY; Therapy: 08Jun2012 to (Evaluate:21Dec2017) Requested for: 54Wfq3275; Last Rx:84Uxn6107 Ordered 14. Polyethylene Glycol 3350 Oral Powder; MIX 1 CAPFUL (17GM) IN 8 OUNCES OF WATER, JUICE, OR TEA AND DRINK DAILY; Therapy: 55Ziw6549 to (Evaluate:24Oct2017) Requested for: 27Apr2017; Last Rx:27Apr2017 [...] 2 CAPSULES EVERY EVENING; Therapy: 13May2012 to (Evaluate:23Ogb0688) Requested for: 01Nov2017; Last Rx:52Ien9229 Ordered 17. Ventolin HFA 108 (90 Base) MCG/ACT Inhalation Aerosol Solution; INHALE 2 PUFFS BY MOUTH EVERY 4 TO 6 HOURS NEEDED FOR SHORTNESS OFBREATH; Therapy: 27Sep2017 to (Last Rx:27Sep2017) Requested for: 27Sep2017 Ordered 18. Zolpidem Tartrate 10 MG Oral Tablet; TAKE 1 TABLET BY MOUTH AT BEDTIME NEEDED; Therapy: 67Lwg0674 to (Evaluate:27Vmn9611) Requested for: 07Nov2017; Last Rx:99Jwm1933 Ordered Allergies 1. No Known Drug Allergies [...] Results/Data QU-METANEPHRINES, FRACT. LC/MS/MS, 24 HR URINE 93812 40Vxx7250 11:46AM Keyonna Armstrong Test Name Result Flag Reference 24 HR URINE VOLUME 3000 mL METANEPHRINE 123 mcg/24 h 58-203 This test was developed and its analytical performance characteristics have been determined by [employer] [place], [place]. It has not been cleared or approved by the U.S. Food and Drug Administration. This assay has been validated pursuant to the CLIA regulations and is used for clinical purposes. NORMETANEPHRINE 887 mcg/24 h H 88-649 This test was developed and its analytical performance characteristics have been determined by [employer] [place], [place]. It has not been cleared [...] is recommended for confirmation. Test Performed at: [facility] [address] LYDIA ALDANA MD,PHD QU-CATECHOLAMINES FRAC AND CREATININE, [address] [place] [address] 19Oct2017 11:46AM Keyonna Armstrong Test Name Result Flag Reference 24 HR URINE VOLUME 3000 mL EPINEPHRINE, 24 HR URINE see note Results are below the reportable range for this analyte, which is 2.0 mcg/L. This test was developed and its analytical performance characteristics have been determined by [employer] [place], [place]. It has not been cleared or approved by the U.S. Food and Drug Administration. This assay has been validated pursuant to the CLIA regulations and is used for clinical purposes. NOREPINEPHRINE, 24 HR UR 125 mcg/24 h H 15-100 This test was developed and its analytical performance characteristics have been determined by [employer] [place], [place]. It has not been cleared or approved by the U.S. Food and Drug Administration. This assay has been validated pursuant to the CLIA regulations and is used for clinical purposes. CALCULATED TOTAL (E+NE) 125 mcg/24 h H 26-121 This test was developed and its analytical performance characteristics have been determined by [employer] [place]. It has not been cleared or approved by the U.S. Food and Drug Administration. This assay has been validated pursuant to the CLIA regulations and is used for clinical purposes. DOPAMINE, 24 HR URINE 399 mcg/24 h 52-480 This test was developed and its analytical performance characteristics have been determined by [employer] [place], [place]. It has not been cleared or approved by the U.S. Food and Drug Administration. This assay has been validated pursuant to the CLIA regulations and is used for clinical purposes. CREATININE, 24 HOUR URINE 1.96 g/24 h 0.63-2.50 REPORT COMMENT: SPLIT 10/17/2017 FROM [id number] Test Performed at: [facility] LYDIA ALDANA MD,PHD -COMPREHENSIVE METABOLIC PANEL [id number] 36Lkq6107 11:18AM Keyonna Armstrong Test Name Result Flag Reference GLUCOSE 91 mg/dL 65-99 Fasting reference interval UREA NITROGEN (BUN) 19 mg/dL 7-25 CREATININE 0.80 mg/dL 0.50-1.10 eGFR NON-AFR. SLOVAK 87 > OR = 60 UNITS: mL/min/1.73m2 [...] ALT 15 U/L 6-29 Test Performed at: [facility] [address] [place] [address] GENE VILLAR DO,MPH QU-METANEPHRINES, FRACT, FREE, LC/MS/MS, PLASMA 02709 17Oct2017 11:18AM Keyonna Armstrong Test Name Result Flag Reference METANEPHRINE, FREE 31 pg/mL <=57 This test was developed and its analytical performance characteristics have been determined by [employer] [place], [place]. It has not been cleared or approved by the U.S. Food and Drug Administration. This assay has been validated pursuant to the CLIA regulations and is used for clinical purposes. NORMETANEPHRINE, FREE 181 pg/mL H <=148 This test was developed and its analytical performance characteristics have been determined by [employer] [place], [place]. It has not been cleared or approved by the U.S. Food and Drug Administration. This assay has been validated pursuant to the CLIA regulations and is used for clinical purposes. TOTAL, FREE (MN+NMN) 212 pg/mL H <=205 For additional information, please refer to http://education.CashEdge/faq/MetFractFree (This link is being provided for informational/educatio [...] analytical performance characteristics have been determined by [employer] [place], [place]. It has not been cleared or approved by the U.S. Food and Drug Administration. This assay has been validated pursuant to the CLIA regulations and is used for clinical purposes. Test Performed at: [facility] [address] [place], [place] LYDIA ALDANA MD,PHD QU-PLASMA RENIN ACTIVITY, LC/MS/MS 54529 17Oct2017 11:18AM Keyonna Armstrong Test Name Result Flag Reference PLASMA RENIN ACTIVITY, LC/MS/MS 26.99 ng/mL/h H 0.25-5.82 This test was developed and its analytical performance characteristics have been determined by [employer] [facility]. It has not been cleared or approved by FDA. This assay has been validated pursuant to the CLIA regulations and is used for clinical purposes. Test Performed at: [facility] [id number] [place] [address] SONYA BLANK MD,PHD,EKATERINA QU-ALDOSTERONE, LC/MS/MS 09546 17Oct2017 11:18AM Keyonna Armstrong Test Name Result Flag Reference ALDOSTERONE, LC/MS/MS 15 ng/dL Adult Reference Ranges for Aldosterone, LC/MS/MS: Upright 8:00-10:00 am < or = 28 ng/dL Upright 4:00-6:00 pm < or = 21 ng/dL Supine 8:00-10:00 am 3-16 ng/dL This test was developed and its analytical performance characteristics have been determined by [employer] [facility]. It has not been cleared or approved by FDA. This assay has been validated pursuant to the CLIA regulations and is used for clinical purposes. Test Performed at: [facility] [id number] [place] [address] SONYA BLANK MD,PHD,EKATERINA QU-CBC ( INCLUDES DIFF/PLT [...] 10.2 fL 7.5-12.5 ABSOLUTE NEUTROPHILS 7393 cells/uL 0714-0660 ABSOLUTE LYMPHOCYTES 3485 cells/uL 850-3900 ABSOLUTE MONOCYTES 1053 cells/uL H 200-950 ABSOLUTE EOSINOPHILS 121 cells/uL 15-500 ABSOLUTE BASOPHILS 48 cells/uL 0-200 NEUTROPHILS 61.1 % LYMPHOCYTES 28.8 % MONOCYTES 8.7 % EOSINOPHILS 1.0 % BASOPHILS 0.4 % Test Performed at: [email or web address] [address] GENE VILLAR DO,MPH QU-TSH W/REFLEX TO FT4 63299 17Oct2017 11:18AM Keyonna Armstrong Test Name Result Flag Reference TSH W/REFLEX TO FT4 1.15 mIU/L Reference Range > or = 20 Years 0.40-4.50 Ranges First trimester 0.26-2.66 Second trimester 0.55-2.73 Third trimester 0.43-2.91 REPORT COMMENT: COLLECTION KIT GIVEN TO PATIENT. PATIENT ADVISED TO RETURN. Test Performed at: [email or web address] [place] [employer] [facility] [place] [address] GENE VILLAR DO,MPH Assessment 1. Adrenal adenoma (227.0) (D35.00) Plan 1. Adrenocorticotrop Horm ( ACTH ); Status:Hold For - Manual Activation; Requested for:13Nov2017; Perform:. [facility]; Due:13Dec2017;Ordered; For:Adrenal adenoma; Ordered By:Antoinette Ochoa; 2. Follow-up visit in 4 months Outpatient Follow-up Status: Hold For - Scheduling Requested for: 13Nov2017 Ordered; For: Adrenal adenoma; Ordered By: Antoinette Ochoa Performed: Due: 27Nov2017 3. Aldosterone; Status:Hold For - Manual Activation; Requested for:62Cst4171; [facility]; Due:13Dec2017;Ordered; For:Adrenal adenoma; Ordered By:Antoinette Ochoa; 4. Compr Metabolic Prof ( CMP ); Status:Hold For - Manual Activation; Requested for:13Nov2017; [facility]; Due:13Dec2017;Ordered; For:Adrenal adenoma; Ordered By:Antoinette Ochoa; 5. Cortisol am Sample; Status:Hold For - Manual Activation; Requested for:13Nov2017; [facility]; Due:13Dec2017;Ordered; For:Adrenal adenoma; Ordered By:Antoinette Ochoa; 6. CT ABDOMEN W W/O; Status:Need Information - Financial Authorization; Requested for:13Nov2017; Perform:[facility]; Order Comments:CT adrenal protocol with housfield and wash out measurements; Due:13Dec2017;Ordered; For:Adrenal adenoma; Ordered By:Antoinette Ochoa; 7. QU-CATECHOLAMINES, FRACTION, UPRIGHT, PLASMA 92137; Status:Hold For - Manual Activation; Requested for:75Rwp0512; Perform:[facility]; Due:13Dec2017;Ordered; For:Adrenal adenoma; Ordered By:Antoinette Ochoa; 8. QU-CATECHOLAMINES, FRACTIONATED, AND VMA, 24-HOUR URINE 06720; Status:Hold For - Manual Activation; Requested for:13Nov2017; Perform:[facility]; Due:13Dec2017;Ordered; For:Adrenal adenoma; Ordered By:Antoinette Ochoa; VOLUME: : collectionn 9. QU-METANEPHRINES, FRACT, FREE, LC/MS/MS, PLASMA 01415; Status:Hold For - Manual Activation; Requested for:13Nov2017; Perform:[facility]; Due:13Dec2017;Ordered; For:Adrenal adenoma; Ordered By:Antoinette Ochoa; 10. QU-METANEPHRINES, FRACT. LC/MS/MS, 24 HR URINE 49767; Status:Hold For - Manual Activation; Requested for:13Nov2017; Perform:[facility]; Due:13Dec2017;Ordered; For:Adrenal adenoma; Ordered By:Antoinette Ochoa; 11. Renin Activity; Status:Hold For - Manual Activation; Requested for:18Zaj1198; Perform:[facility]; Due:49Tib7715;Ordered; For:Adrenal adenoma; Ordered By:Antoinette Ochoa; 12. Urine Creatinine 24 Hr; Status:Hold For - Manual Activation; Requested for:95Mwv3019; Perform:[facility]; Due:64Tlg2096;Ordered; For:Adrenal adenoma; Ordered By:Antoinette Ochoa; 13. Urine Free Cortisol 24 Hr; Status:Hold For - Manual Activation; Requested for:81Rvy1061; Perform:[facility]; Due:34Qog2360;Ordered; For:Adrenal adenoma; Ordered By:Antoinette Ochoa; 14. Albuterol Sulfate (2.5 MG/3ML) 0.083% Inhalation Nebulization Solution Rx By: Keyonna Armstrong; Dispense: 0 Days ; #:1 X 25 x 3 ML Plas Cont; Refill: 0; For: Bronchitis, acute; TEX = N; Sent To: [facility] #2510; Last Updated By: Antoinette Ochoa; 11/13/2017 9:53:48 AM 15. Nebulizer Device Rx By: Keyonna Armstrong; Dispense: 0 Days ; #:1 Each(Device); Refill: 0; For: Bronchitis, acute; TEX = N; Sent To: [facility] #2510; Last Updated By: Antoinette Ochoa; 11/13/2017 9:53:48 AM 16. PredniSONE 20 MG Oral Tablet Rx By: Keyonna Armstrong; Dispense: 0 Days ; #:11 Tablet; Refill: 0; For: Bronchitis, acute; TEX = N; Sent To: [facility] #2510; Last Updated By: Antoinette Ochoa; 11/13/2017 9:53:47 AM 17. Ibuprofen 800 MG Oral Tablet Rx By: Royer Hidalgo; Dispense: 10 Days ; #:30 TAB; Refill: 5; For: PMH: Diabetic peripheral neuropathy; TEX = N; Sent To: [facility] #2510; Last Updated By: Antoinette Ochoa; 11/13/2017 9:53:47 AM 18. Benzonatate 100 MG Oral Capsule Rx By: Keyonna Armstrong; Dispense: 8 Days ; #:30 Capsule; Refill: 0; For: PMH: Influenza A; TEX = N; Sent To: [facility]2510; Last Updated By: Antoinette Ochoa; 11/13/2017 9:53:47 AM 19. Ventolin HFA 108 (90 Base) MCG/ACT Inhalation Aerosol Solution Rx By: Keyonna Armstrong; Dispense: 0 Days ; #:1 X 18 GM Inhaler; Refill: 5; For: Shortness of breath at rest; ETX = N; Sent To: [facility] #2510; Last Updated By: Antoinette Ochoa; 11/13/2017 [...] Antoinette Barrios M.D.; Nov 19 2017 11:35AM FINAL FINISHER FORGING DIES (Author) documented in this encounter Plan of Treatment Upcoming Encounters Date Type Department Care Team (Late st Contact Info) Description 07/25/2024 10:00 AM FINAL FINISHER FORGING DIES Office Visit [facility] Medical Group Family & Internal Medicine - [address] [phone] Keyonna Armstrong APNP [address] [place] [address] 07/31/2024 10:15 AM FINAL FINISHER FORGING DIES Office Visit [facility] THREE [facility], [facility] [address] [place] [address] Pepe Mitchell MD Three [facility]. [facility] [address] [place] [address] documented as of this encounter Visit Diagnoses Not on filedocumented in this encounter
--- OUTSIDE RECORDS SUMMARY | 2024-07-11 00:18 | XMS_ITS | Encounter Summary ---
Author Organization [facility] Address [address] [place] [address]. [place], [place] [address] [place] [address] Care Team Providers Care Home Comfort Advisor Name Role Phone Unavailable Primary Care Provider Unavailabl e Encounter Details Date Type Department Care Team (Latest Contact Info) Description 02/04/2018 Abstract [facility] Priyanka Zepeda MD Social History Tobacco Use Types Packs/Day Years Used Date Smoking Tobacco: Never Assessed Comments Unknown Sex and Gender Information Value Date Recorded Sex Assigned at Not on file Legal Sex Female 5:47 PM CDT Gender Identity Female 07/17/2022 10:27 AM CARBON CLEANER Sexual Orientation Straight 07/17/2022 10 :27 AM CARBON CLEANER documented as of this encounter Plan of Treatment Upcoming Encounters Date Type Department Care Team (Late st Contact Info) Description 07/25/2024 10:00 AM CARBON CLEANER Office Visit [facility] Family & Internal Medicine - [place] [address] [place] [address] Keyonna Armstrong APNP [address] [place] [address] 07/31/2024 10:15 AM CARBON CLEANER Office Visit [facility] THREE [facility], [place] [address] [place], [place] [phone] Pepe Mitchell MD Three [facility]. [place] [address] [place] [address] documented as of this encounter Visit Diagnoses Not on filedocumented in this encounter
--- OUTSIDE RECORDS SUMMARY | 2024-07-11 00:18 | XMS_ITS | Encounter Summary ---
Author Organization [facility] Address [address] [place] [address]. [place], [place] [address] [place] [address] Care Team Providers Care Network Operations Specialist Name Role Phone Unavailable Primary Care Provider Unavailabl e Encounter Details Date Type Department Care Team (Latest Contact Info) Description 11/19/2017 Abstract [facility] Social History Tobacco Use Types Packs/Day Years Used Date Smoking Tobacco: Never Assessed Comments Unknown Sex and Gender Information Value Date Recorded Sex Assigned at Not on file Legal Sex Female 5:47 PM CDT Gender Identity Female 07/17/2022 10:27 AM LOTTERY MANAGER Sexual Orientation Straight 07/17/2022 10 :27 AM LOTTERY MANAGER documented as of this encounter Plan of Treatment Upcoming Encounters Date Type Department Care Team (Late st Contact Info) Description 07/25/2024 10:00 AM LOTTERY MANAGER Office Visit [facility] Family & Internal Medicine - [place] [address] [place] [address] Keyonna Armstrong APNP [address] [place] [address] 07/31/2024 10:15 AM LOTTERY MANAGER Office Visit [facility] THREE [facility], [facility] [address] [place], [place] [phone] Pepe Mitchell MD [facility]. [facility] [address] [place], [place] [phone] documented as of this encounter Visit Diagnoses Not on filedocumented in this encounter
--- OUTSIDE RECORDS SUMMARY | 2024-07-11 00:18 | XMS_ITS | Encounter Summary ---
Author Organization [facility] Address [facility]. [place], [place] [address] [place] [address] Care Team Providers Care Farm Implement Engine Mechanic Name Role Phone Unavailable Primary Care Provider Unavailabl e Encounter Details Date Type Department Care Team (Late st Contact Info) Description 01/17/2018 Abstract [facility] Family & Internal Medicine [address] [address] Kel Solo MD [address] [place] [address] Social History Tobacco Use Types Packs/Day Years Used Date Smoking Tobacco: Never Assessed Comments Unknown Sex and Gender Information Value Date Recorded Sex Assigned at Not on file Legal Sex Female 5:47 PM CDT Gender Identity Female 07/17/2022 10:27 AM PROOFREADER Sexual Orientation Straight 07/17/2022 10 :27 AM PROOFREADER documented as of this encounter Progress Notes [...] BY MOUTH EVERY DAY; Therapy: 30May2012 to (Evaluate:27Omh2063) Requested for: 11Crs1012; Last Rx:[id number] Ordered 2. HydroCHLOROthiazide 25 MG Oral Tablet; TAKE ONE TABLET BY MOUTH EVERY DAY; Therapy: 20May2012 to (Evaluate:32Zwk2854) Requested for: 97Bpj4000; Last Rx:00Zhs0481 Ordered 3. Lisinopril 20 MG Oral Tablet; TAKE 1 TABLET BY MOUTH EVERY DAY; Therapy: 28Sep2017 to (Evaluate:27Apr2018) Requested for: 09Idm5247; Last Rx:12Cjj8265 Ordered 4. LORazepam 0.5 MG Oral Tablet; TAKE 1 TABLET BY MOUTH 3 TIMES A DAY. Patient needs appointment for further refills; Therapy: 63Wko5747 to (Evaluate:22Vxq5524) Requested for: 31Dec2017; Last Rx:[id number] Ordered 5. MetFORMIN HCl - 500 MG Oral Tablet; TAKE 1 TABLET BY MOUTH EVERY MORNING AND THEN TAKE 2 TABLETS AT BEDTIME; Therapy: 24Dec2011 to (Evaluate:71Jhm5562) Requested for: 09Jan2018; Last Rx:09Jan2018 Ordered 6. Methocarbamol 750 MG Oral Tablet; TAKE 1 TO 2 TABLETS 3 TIMES DAILY NEEDED FOR MUSCLE SPASM; Therapy: 11Aug2014 to (Evaluate:03Kme6016) Requested for: 53Eef8134; Last Rx:53Hvf0144 Ordered 7. Metoprolol Succinate ER 100 MG Oral Tablet Extended Release 24 Hour; TAKE 1 TABLET BY MOUTH EVERY DAY; Therapy: 08May2017 to (Evaluate:53Oya9099) Requested for: 18Oct2017; Last Rx:18Oct2017 Ordered 8. Ondansetron 4 MG Oral Tablet Disintegrating; DISSOLVE 1-2 TABLETS ON TONGUE EVERY 8 HOURS NEEDED FOR NAUSEA ..PATIENT NEEDS APPOINTMENT; Therapy: 69Efr1210 to (Evaluate:49Vcs2325) Requested for: 20Nov2016; Last Rx:20Nov2016 Ordered 9. Pantoprazole Sodium 40 MG Oral Tablet Delayed Release; TAKE 1 TABLET EVERY DAY; Therapy: 08Jun2012 to (Evaluate:12Jun2018) Requested for: 50Uzi3635; Last Rx:85Jqm1731 Ordered 10. Polyethylene Glycol 3350 Oral Powder; MIX 1 CAPFUL (17GM) IN 8 OUNCES OF WATER, JUICE, OR TEA AND DRINK DAILY; Therapy: 98Wje0569 to (Evaluate:13Ywd5757) Requested for: 27Apr2017; Last Rx:20Frc8332 Ordered 11. Venlafaxine HCl ER 75 MG Oral Capsule Extended Release 24 Hour; TAKE ONE CAPSULE BY MOUTH EVERY MORNING AND TAKE 2 CAPSULES EVERY EVENING; Therapy: 78Hhw6480 to (Evaluate:67Lqm2935) Requested for: 87Vtj3165; Last Rx:65Tpm8269 Ordered 12. Zolpidem Tartrate 10 MG Oral Tablet; TAKE 1 TABLET BY MOUTH AT BEDTIME NEEDED; Therapy: 67Mcx5674 to (Evaluate:77Luz0194) Requested for: 07Jan2018; Last Rx:[id number] Ordered Allergies 1. No Known Drug Allergies Assessment 1. Anxiety (300.00) (F41.9) 2. Chronic insomnia (780.52) (F51.04) Signatures Electronically signed by : Padmaja Leonardo, ; Jan 17 2018 4:09PM PROOFREADER (Author) documented in this encounter Plan of Treatment Upcoming Encounters Date Type Department Care Team (Late st Contact Info) Description 07/25/2024 10:00 AM PROOFREADER Office Visit [facility] Family & Internal Medicine [address] [address] Keyonna Armstrong APNP [address] [place] [address] 07/31/2024 10:15 AM PROOFREADER Office Visit [facility] THREE [facility], [facility] [address] [place], [place] [phone] Pepe Mitchell MD Three [facility]. [facility] [address] [place] [address] documented as of this encounter Visit Diagnoses Not on filedocumented in this encounter
--- OUTSIDE RECORDS SUMMARY | 2024-07-11 00:18 | XMS_ITS | Encounter Summary ---
Author Organization [facility] Address [address] [place] [address]. [place], [place] [address] [place] [address] Care Team Providers Care Casino Operations Supervisor Name Role Phone Keyonna Armstrong Primary Care Provider [phone] Encounter Details Date Type Department Care Team (Latest Contact Info) Description 04/06/2018 Abstract [facility] Claudia Kidd MD Social History Tobacco Use Types Packs/Day Years Used Date Smoking Tobacco: Never Assessed Comments Unknown Sex and Gender Information Value Date Recorded Sex Assigned at Not on file Legal Sex Female 5:47 PM CDT Gender Identity Female 07/17/2022 10:27 AM CLOTH DYEING RANGE TENDER Sexual Orientation Straight 07/17/2022 10 :27 AM CLOTH DYEING RANGE TENDER documented as of this encounter Plan of Treatment Upcoming Encounters Date Type Department Care Team (Late st Contact Info) Description 07/25/2024 10:00 AM CLOTH DYEING RANGE TENDER Office Visit [facility] Family & Internal Medicine [facility] [address] [place] [address] Keyonna Armstrong APNP [facility] [place] [address] 07/31/2024 10:15 AM CLOTH DYEING RANGE TENDER Office Visit [facility] THREE [facility], [facility] [address] [place] [address] Pepe Mitchell MD Three [facility]. [facility] [address] [place], [place] [address] documented as of this encounter Visit Diagnoses Not on filedocumented in this encounter Care Teams Casino Operations Supervisor Relationship Specialty Start Date End Date Keyonna Armstrong APNP [address] [place] [address] PCP - General NURSE PRACTITIONER 05/06/18 documented as of this encounter
--- OUTSIDE RECORDS SUMMARY | 2024-07-11 00:18 | XMS_ITS | Encounter Summary ---
Author Organization [facility] Address [address] [place] [address]. [place], [place] [address] [place] [address] Care Team Providers Care Portable Power Tool Repairer Name Role Phone Keyonna Armstrong Primary Care Provider [phone] Encounter Details Date Type Department Care Team (Late st Contact Info) Description 04/23/2018 Abstract [facility] Medical [facility], [address] [place] [address] Antoinette Ochoa MD [address] [facility] [address] [place] [address] Social History Tobacco Use Types Packs/Day Years Used Date Smoking Tobacco: Never Assessed Comments Unknown Sex and Gender Information Value Date Recorded Sex Assigned at Not on file Legal Sex Female 5:47 PM CDT Gender Identity Female 07/17/2022 10:27 AM APPEALS REPRESENTATIVE Sexual Orientation Straight 07/17/2022 10 :27 AM APPEALS REPRESENTATIVE documented as of this encounter Progress [...] : Dm HancockP.N.; Apr 23 2018 9:50AM APPEALS REPRESENTATIVE (Author) documented in this encounter Plan of Treatment Upcoming Encounters Date Type Department Care Team (Late st Contact Info) Description 07/25/2024 10:00 AM APPEALS REPRESENTATIVE Office Visit [facility] Medical Group Family & Internal Medicine - [address] [address] Keyonna Armstrong APNP [address] [place] [address] 07/31/2024 10:15 AM APPEALS REPRESENTATIVE Office Visit [facility] THREE [facility] [address] [place], [place] [phone] Pepe Mitchell MD [facility]. [facility] [address] [place], [place] [address] documented as of this encounter Visit Diagnoses Not on filedocumented in this encounter Care Teams Portable Power Tool Repairer Relationship Specialty Start Date End Date Keyonna Armstrong APNP [address] [place] [address] PCP - General NURSE PRACTITIONER 05/06/18 documented as of this encounter
--- OUTSIDE RECORDS SUMMARY | 2024-07-11 00:18 | XMS_ITS | Encounter Summary ---
Author Organization [facility] Address [address] [place] [address]. [place], [place] [address] [place] [address] Care Team Providers Care Route Process Administrator Name Role Phone Unavailable Primary Care Provider Unavailabl e Encounter Details Date Type Department Care Team (Latest Contact Info) Description 11/21/2017 Abstract [facility] Social History Tobacco Use Types Packs/Day Years Used Date Smoking Tobacco: Never Assessed Comments Unknown Sex and Gender Information Value Date Recorded Sex Assigned at Not on file Legal Sex Female 5:47 PM CDT Gender Identity Female 07/17/2022 10:27 AM SHIP SCALER Sexual Orientation Straight 07/17/2022 10 :27 AM SHIP SCALER documented as of this encounter Progress Notes [...] [facility] w[facility] around 11am Maria L Singh 19 Nov 2017 9:38 AM TASK EDITED called [employer] to see if need prior approval for ct abd. was told yes need prior auth. reference number [id number] and was told have to call [phone] to get prior auth Maria L Singh 19 Nov 2017 9:53 AM TASK EDITED called [phone] and received prior approvel went thru [facility] from 11/19 to 12/09 2017 auth number [id number] Maria L Singh - 19 Nov 2017 [...] EDITED Patient said that [facility] in [place] does not have the proper orders for the testing. [facility] number is [phone] Tomy Singhn 21 Nov 2017 2:44 PM TASK EDITED sent labs over to them per fax FranciscoMaria L 21 Nov 2017 2:46 PM TASK EDITED called [facility] left message sent orders to them if need anything else to call back Signatures Electronically signed by : Dm HancockP.N.; Nov 21 2017 2:46PM SHIP SCALER (Author) documented in this encounter Plan of Treatment Upcoming Encounters Date Type Department Care Team (Late st Contact Info) Description 07/25/2024 10:00 AM SHIP SCALER Office Visit [facility] Family & Internal Medicine - [place] [address] [place] [address] Keyonna Armstrong APNP [facility] [place] [address] 07/31/2024 10:15 AM SHIP SCALER Office Visit [facility] THREE [facility], [place] [address] [place], [place] [phone] Pepe Mitchell MD Three [facility]. [place] [address] [place], [place] [address] documented as of this encounter Visit Diagnoses Not on filedocumented in this encounter
--- OUTSIDE RECORDS SUMMARY | 2024-07-11 00:18 | XMS_ITS | Encounter Summary ---
Author Organization [facility] Address [address] [place] [address]. [place], [place] [address] [place] [address] Care Team Providers Care Print Finishing Worker Name Role Phone Unavailable Primary Care Provider Unavailabl e Encounter Details Date Type Department Care Team (Late st Contact Info) Description 12/31/2017 Abstract [facility] Family & Internal Medicine [place] [address] [place] [address] Keyonna Armstrong APNP [address] [place] [address] Social History Tobacco Use Types Packs/Day Years Used Date Smoking Tobacco: Never Assessed Comments Unknown Sex and Gender Information Value Date Recorded Sex Assigned at Not on file Legal Sex Female 5:47 PM CDT Gender Identity Female 07/17/2022 10:27 AM IRON MOLDER HELPER Sexual Orientation Straight 07/17/2022 10 :27 AM IRON MOLDER HELPER documented as of this encounter Last [...] I did bring up with her, her 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 She states she was placed on OCP [...] BY MOUTH EVERY DAY; Therapy: 30May2012 to (Evaluate:72Lqo0660) Requested for: 12Rsm0250; Last Rx:[id number] Ordered 2. HydroCHLOROthiazide 25 MG Oral Tablet; TAKE ONE TABLET BY MOUTH EVERY DAY; Therapy: 20May2012 to (Evaluate:10Aax2822) Requested for: 54Qvv0964; Last Rx:69Wrh5956 Ordered 3. Lisinopril 20 MG Oral Tablet; TAKE 1 TABLET BY MOUTH EVERY DAY; Therapy: 28Sep2017 to (Evaluate:27Apr2018) Requested for: 23Fko9930; Last Rx:72Sur6163 Ordered 4. LORazepam 0.5 MG Oral Tablet; TAKE 1 TABLET BY MOUTH 3 TIMES A DAY. Patient needs appointment for further refills; Therapy: 84Ulr4627 to (Evaluate:30Dec2017) Requested for: 88Nlx1952; Last Rx:42Vva9749 Ordered 5. MetFORMIN HCl - 500 MG Oral Tablet; TAKE 1 TABLET BY MOUTH EVERY MORNING AND THEN TAKE 2 TABLETS AT BEDTIME; Therapy: 24Dec2011 to (Evaluate:53Uhz4476) Requested for: 94Edr1723; Last Rx:35Ugx0367 Ordered 6. Methocarbamol 750 MG Oral Tablet; TAKE 1 TO 2 TABLETS 3 TIMES DAILY NEEDED FOR MUSCLE SPASM; Therapy: 11Aug2014 to (Evaluate:45Wvp8503) Requested for: 22Pez2405; Last Rx:72Onm5504 Ordered 7. Metoprolol Succinate ER 100 MG Oral Tablet Extended Release 24 Hour; TAKE 1 TABLET BY MOUTH EVERY DAY; Therapy: 08May2017 to (Evaluate:85Zjc1036) Requested for: 18Oct2017; Last Rx:18Oct2017 Ordered 8. Ondansetron 4 MG Oral Tablet Disintegrating; DISSOLVE 1-2 TABLETS ON TONGUE EVERY 8 HOURS NEEDED FOR NAUSEA ..PATIENT NEEDS APPOINTMENT; Therapy: 28Bpp9651 to (Evaluate:31Elv5499) Requested for: 22Llt1273; Last Rx:00Afs0929 Ordered 9. Pantoprazole Sodium 40 MG Oral Tablet Delayed Release; TAKE 1 TABLET EVERY DAY; Therapy: 08Jun2012 to (Evaluate:12Jun2018) Requested for: 13Mlm7057; Last Rx:22Fni6722 Ordered 10. Polyethylene Glycol 3350 Oral Powder; MIX 1 CAPFUL (17GM) IN 8 OUNCES OF WATER, JUICE, OR TEA AND DRINK DAILY; Therapy: 62Ujr5441 to (Evaluate:00Ynk7087) Requested for: 27Apr2017; Last Rx:43Acs5571 Ordered 11. Venlafaxine HCl ER 75 MG Oral Capsule Extended Release 24 Hour; TAKE ONE CAPSULE BY MOUTH EVERY MORNING AND TAKE 2 CAPSULES EVERY EVENING; Therapy: 13May2012 to (Evaluate:92Hlt6106) Requested for: 38Nrw0543; Last Rx:12Sgc7913 Ordered 12. Zolpidem Tartrate 10 MG Oral Tablet; TAKE 1 TABLET BY MOUTH AT BEDTIME NEEDED; Therapy: 95Tqz2487 to (Evaluate:12Jan2018) Requested for: 48Ddl4710; Last Rx:36Bdx1469 Ordered Allergies 1. No Known Drug Allergies [...] TEX = N; Print Rx;Msg to Pharmacy: [phone] [facility];LM-KKR RN [facility];LM-KKR RN [facility];LM-KKR [facility] [place] [facility] into [facility] - LM /tjt Called into [facility] LM /tjt Called into [facility] - LM /tjt Called into [facility] - LM /tjt Called into [facility] LM /tjt Called into [facility] - LM /tjt [facility] /tjt Called into [facility] - LM /tjt Called into [facility] - LM - gets #90 every 30 days /tjt Called into [facility] - LM /tjt Called into [facility] LM /tjt Called into [facility] LM /tjt Called [facility] /tjt Called in to [facility] - LM /tjt 2. Avoid alcoholic beverages.; [...] Done: 01Jan2018 Ordered; For:Anxiety; Ordered By:Keyonna Armstrong; 13. Call 911 if: You are thinking about harming yourself or someone else.; Status:Complete; Done: 60Oro0010 Ordered; For:Anxiety; Ordered By:Keyonna Armstrong; 14. Seek Immediate Medical Attention if: ; Status:Complete; Done: 94Txn0201 Ordered; For:Anxiety; Ordered By:Keyonna Armstrong; 15. Seek [...] For:Chronic insomnia; Ordered By:Keyonna Armstrong; 18. Avoid qxaq-oli-ivfmwqk cold remedies unless recommended by us.; Status:Complete; [...] cyst - After discussion with pt regarding assisted use of OCP,risks and benefits, she is in agreement to follow up with ENGINEERING ANALYST to discuss other tx options. Routine fasting labs ordered today. More plan after results. Signatures Electronically signed by : Keyonna Armstrong APN; Jan 02 2018 2:21PM IRON MOLDER HELPER (Author) documented in this encounter Plan of Treatment Upcoming Encounters Date Type Department Care Team (Late st Contact Info) Description 07/25/2024 10:00 AM IRON MOLDER HELPER Office Visit [facility] Family & Internal Medicine - [place] [address] [place] [address] Keyonna Armstrong APNP [address] [place] [address] 07/31/2024 10:15 AM IRON MOLDER HELPER Office Visit [facility] THREE [facility] [address] [place], [place] [address] Pepe Mitchell MD Three [facility]. [facility] [address] [place], [place] [address] documented as of this encounter Visit Diagnoses Not on filedocumented in this encounter
--- OUTSIDE RECORDS SUMMARY | 2024-07-11 00:18 | XMS_ITS | Encounter Summary ---
Author Organization [facility] Address [address] [place] [address]. [place] [id number] [place], [place] [id number] Care Team Providers Care Molecular Pathologist Name Role Phone Keyonna Armstrong Primary Care Provider [phone] Reason for Visit * Reason Comments Follow Up hospital (gallbladde r problems) Encounter Details Date Type Department Care Team (Late st Contact Info) Description 06/11/2018 11:20 AM COMPUTER PROGRAMMER CHIEF Office Visit [facility] Family & Internal Medicine [facility] [address] [place] [id number] Keyonna Armstrong APNP [facility] [place] [address] Follow Up (hospital (gallbladder problems)) [...] Gender Identity Female 07/17/2022 10:27 AM COMPUTER PROGRAMMER CHIEF Sexual Orientation Straight 07/17/2022 10 :27 AM COMPUTER PROGRAMMER CHIEF documented as of this encounter Last Filed Vital Signs Vital Sign Reading Time Taken Comments Blood Pressure 135/81 06/11/2018 11:42 AM COMPUTER PROGRAMMER CHIEF Pulse 83 06/11/2018 11:42 AM COMPUTER PROGRAMMER CHIEF Temperature 36.8 ??C (98.3 ??F) 06/11/2018 1 1:42 AM COMPUTER PROGRAMMER CHIEF Respiratory Rate 16 06/11/2018 11:4 2 AM COMPUTER PROGRAMMER CHIEF Oxygen Saturation 95% 06/11/2018 11: 42 AM COMPUTER PROGRAMMER CHIEF Inhaled Oxygen Concentration - - Weight 134.6 kg (296 lb 11.2 oz) 2017 11:42 AM COMPUTER PROGRAMMER CHIEF Height 162.6 cm (5' 4) 06/11/2018 11:4 2 AM COMPUTER PROGRAMMER CHIEF Body Mass Index 50.93 06/11/2018 11:42 AM COMPUTER PROGRAMMER CHIEF documented in this encounter Patient Instructions * Patient Instructions* YOBANI Cruz - 06/11/2018 11:20 AM COMPUTER PROGRAMMER CHIEF Images from the original note were not [...] right for you. Copyright Copyright ?? 2018 [employer]. and its affiliates and/or licensors. All rights [...] ordered. Donot take other prescription drugs or ogdl-kbq-ogemwdq (OTC) drugs without talking to your doctor [...] or stroke. Where can I learn more? [place] Heart Association http://www.heart.org/HEARTORG/Conditions/HighBloodPressure/AboutHighBloodPressur e/Dfkup-Bnyl-Maied-Pressure_UC_002050_Article.jsp#.R3bU7RioY1w [place] Stroke Association http://www.strokeassociation.org/STROKEORG/WarningSigns/Fkpiku-Pyjsfjb-Sxtxy-and -Symptoms_UC_308528_SubHomePage.jsp Better Health Channel http://www.betterhealth.esequiel.gov.au/bhcv2/bhcarticles.nsf/pages/Hypertension_mean s_high_blood_pressure National Heart Lung and Blood [place] http://www.nhlbi.nih.gov/health/health-topics/topics/hbp/ National [place] of Health ? Senior Health http://nihseniorhealth.gov/highbloodpressure/whatishighbp/01.html NHS [...] right for you. Copyright Copyright ?? 2018 [employer] and its affiliates and/or licensors. All rights reserved. UTER PROGRAMMER CHIEF UTER PROGRAMMER CHIEF documented in this encounter Progress Notes * YOBANI Cruz - 06/11/2018 11:20 AM CST UTER PROGRAMMER CHIEF * YOBANI Cruz - 06/11/2018 11:20 AM CST Images from the original note were not included. [facility] FAMILY [facility] INTERNAL MEDICINE OFFICE VISIT Reason for Visit: Follow Up (hospital (gallbladder problems)) History of Present Illness: Pt here today for follow up TCM after being hospitalized on 05/27/2018 and being diagnosed with cholecystitis and sepsis. According to hospitalist note, they recommended she follow up at a tertiary care center for surgical consideration and [facility]. As of today, she states [...] normal. She is to continue follow-up at [facility] with general surgery as already scheduled. 6. Elevated liver enzymes Plan to recheck. We will plan after results. Orders Placed This Encounter ??? COMPREHENSIVE METABOLIC PANEL ??? pantoprazole 40 MG tablet ??? metoprolol succinate 100 MG 24 hr tablet Cannot display discharge medications since this is not an admission. PCP: YOBANI Cruz 06/11/2018 UTER PROGRAMMER CHIEF documented in this encounter Plan of Treatment Upcoming Encounters Date Type Department Care Team (Late st Contact Info) Description 07/25/2024 10:00 AM COMPUTER PROGRAMMER CHIEF Office Visit [facility] Family & Internal Medicine - [place] [address] [place] [address] Keyonna Armstrong APNP [address] [place] [address] 07/31/2024 10:15 AM COMPUTER PROGRAMMER CHIEF Office Visit [facility], [facility] [address] [place], [place] [address] Pepe Mitchell MD [facility]. [facility] [address] [place], [place] [address] documented as of this encounter Visit Diagnoses Diagnosis Calculus of gallbladder without cholecystitis without obstruction- Primary Calculus of gallbladder without mention of cholecystitis or obstruction Gastroesophageal reflux disease without esophagitis Esophageal reflux Cholecystitis Cholecystitis, unspecified Essential hypertension Unspecified essential hypertension BMI 50.0-59.9, adult ([facility]) Body Mass Index 50.0-59.9, adult Elevated liver enzymes Nonspecific elevation of levels of transaminase or lactic acid dehydrogenase (LDH) documented in this encounter Care Teams Molecular Pathologist Relationship Specialty Start Date End Date Keyonna Armstrong APNP [address] [place] [address] PCP - General NURSE PRACTITIONER 05/06/18 documented as of this encounter
--- OUTSIDE RECORDS SUMMARY | 2024-07-11 00:18 | XMS_ITS | Encounter Summary ---
Author Organization [facility] Address [address] [place] [address]. [place], [place] [phone] [place] [address] Care Team Providers Care Wellness Spa Manager Name Role Phone Keyonna Armstrong Primary Care Provider [phone] Reason for Visit * Reason Onset Date Comments Appointment Request 06/04/2018 Encounter Details Date Type Department Care Team (Late st Contact Info) Description 06/04/2018 Telephone [facility] Family & Internal Medicine [facility] [address] [place] [address] Keyonna Armstrong APNP [address] [place] [address] Appointment Request Social History Tobacco Use Types Packs/Day Years Used Date Smoking Tobacco: Never Assessed Comments Unknown Sex and Gender Information Value Date Recorded Sex Assigned at Not on file Legal Sex Female 5:47 PM CDT Gender Identity Female 07/17/2022 10:27 AM SOCIAL SCIENCES INSTRUCTOR Sexual Orientation Straight 07/17/2022 10 :27 AM SOCIAL SCIENCES INSTRUCTOR documented as of this encounter Progress Notes * Nenita Young MA - 06/04/2018 9:25 AM CST Patient made appointment AL SCIENCES INSTRUCTOR * Nenita Young MA - 06/04/2018 8:45 AM CST Patient needs to schedule TCM appointment AL SCIENCES INSTRUCTOR documented in this encounter Plan of Treatment Upcoming Encounters Date Type Department Care Team (Late st Contact Info) Description 07/25/2024 10:00 AM SOCIAL SCIENCES INSTRUCTOR Office Visit [facility] Family & Internal Medicine - [place] [address] [place] [address] Keyonna Armstrong APNP [address] [place] [address] 07/31/2024 10:15 AM SOCIAL SCIENCES INSTRUCTOR Office Visit [facility], [facility] [address] [place], [place] [address] Pepe Mitchell MD [facility]. [facility] [address] [place], [place] [phone] documented as of this encounter Visit Diagnoses Not on filedocumented in this encounter Care Teams Wellness Spa Manager Relationship Specialty Start Date End Date Keyonna Armstrong APNP [facility] [place] [address] PCP - General NURSE PRACTITIONER 05/06/18 documented as of this encounter
--- OUTSIDE RECORDS SUMMARY | 2024-07-11 00:18 | XMS_ITS | Encounter Summary ---
Author Organization [facility] Address [address] [place] [address]. [place], [place] [address] [place] [address] Care Team Providers Care Wire Bender Name Role Phone Keyonna Armstrong Primary Care Provider [phone] Encounter Details Date Type Department Care Team (Latest Contact Info) Description 05/07/2018 Abstract [facility] Charline Thurman FNP [address] [place] [address] Social History Tobacco Use Types Packs/Day Years Used Date Smoking Tobacco: Never Assessed Comments Unknown Sex and Gender Information Value Date Recorded Sex Assigned at Not on file Legal Sex Female 5:47 PM CDT Gender Identity Female 07/17/2022 10:27 AM SUPERVISOR [employer]ELATIN PLANT Sexual Orientation Straight 07/17/2022 10 :27 AM SUPERVISOR GELATIN PLANT documented as of this encounter Plan of Treatment Upcoming Encounters Date Type Department Care Team (Late st Contact Info) Description 07/25/2024 10:00 AM SUPERVISOR GELATIN PLANT Office Visit [facility] Medical [facility] Family & Internal Medicine - [place] [address] [place] [address] Keyonna Armstrong APNP [address] [place] [address] 07/31/2024 10:15 AM SUPERVISOR GELATIN PLANT Office Visit [facility], [facility] [address] [place] [address] Pepe Mitchell MD [facility] [place] [address] [place] [address] documented as of this encounter Visit Diagnoses Not on filedocumented in this encounter Care Teams Wire Bender Relationship Specialty Start Date End Date Keyonna Armstrong APNP [address] [place] [address] PCP - General NURSE PRACTITIONER 05/06/18 documented as of this encounter
--- OUTSIDE RECORDS SUMMARY | 2024-07-11 00:18 | XMS_ITS | Encounter Summary ---
Author Organization [facility] Address [address] [place] [address]. [place], [place] [address] [place] [address] Care Team Providers Care Information Technology Project Manager Name Role Phone Unavailable Primary Care Provider Unavailabl e Encounter Details Date Type Department Care Team (Latest Contact Info) Description 04/02/2018 Abstract [facility] Keyonna Armstrong APNP [address] [place] [address] Social History Tobacco Use Types Packs/Day Years Used Date Smoking Tobacco: Never Assessed Comments Unknown Sex and Gender Information Value Date Recorded Sex Assigned at Not on file Legal Sex Female 5:47 PM CDT Gender Identity Female 07/17/2022 10:27 AM ENVIRONMENTAL HEALTH PHYSICIAN Sexual Orientation Straight 07/17/2022 10 :27 AM ENVIRONMENTAL HEALTH PHYSICIAN documented as of this encounter Last Filed [...] She was instructed to follow up with KEYPUNCHER at a previous visit to discuss alternative [...] 3 TIMES DAILY NEEDED; Therapy: 26Feb2018 to (Evaluate:67Eab7487) Requested for: 05Pxh6897; Last Rx:12Ajh8901 Ordered 2. Enpresse-28 Oral Tablet; TAKE 1 TABLET BY MOUTH EVERY DAY; Therapy: 30May2012 to (Evaluate:30Orf7525) Requested for: 17Wev3313; Last Rx:71Axt4812 Ordered 3. HydroCHLOROthiazide 25 MG Oral Tablet; TAKE ONE TABLET BY MOUTH EVERY DAY; Therapy: 20May2012 to (Evaluate:38Nus8630) Requested for: 46Ziv0913; Last Rx:44Fyb1863 Ordered 4. Lisinopril 20 MG Oral Tablet; TAKE 1 TABLET BY MOUTH EVERY DAY; Therapy: 89Zvb3808 to (Evaluate:27Apr2018) Requested for: 96Nji5376; Last Rx:46Ovp5896 Ordered 5. LORazepam 0.5 MG Oral Tablet; TAKE 1 TABLET BY MOUTH 3 TIMES A DAY; Therapy: 49Gil4700 to (Evaluate:29Apr2018) Requested for: 69Knd6796; Last Rx:36Cak5299 Ordered 6. MetFORMIN HCl - 500 MG Oral Tablet; TAKE 1 TABLET BY MOUTH EVERY MORNING AND THEN TAKE 2 TABLETS AT BEDTIME; Therapy: 24Dec2011 to (Evaluate:36Jta1936) Requested for: 09Jan2018; Last Rx:09Jan2018 Ordered 7. Methocarbamol 750 MG Oral Tablet; TAKE 1 TO 2 TABLETS 3 TIMES DAILY NEEDED FOR MUSCLE SPASM; Therapy: 11Aug2014 to (Evaluate:50Auc3909) Requested for: 32Vdk9733; Last Rx:71Jny8779 Ordered 8. Metoprolol Succinate ER 100 MG Oral Tablet Extended Release 24 Hour; TAKE 1 TABLET BY MOUTH EVERY DAY; Therapy: 08May2017 to (Evaluate:00Bvd3279) Requested for: 18Oct2017; Last Rx:18Oct2017 Ordered 9. Ondansetron 4 MG Oral Tablet Disintegrating; DISSOLVE 1-2 TABLETS ON TONGUE EVERY 8 HOURS NEEDED FOR NAUSEA ..PATIENT NEEDS APPOINTMENT; Therapy: 02Mar2015 to (Evaluate:25Nov2016) Requested for: 20Nov2016; Last Rx:20Nov2016 Ordered 10. Pantoprazole Sodium 40 MG Oral Tablet Delayed Release; TAKE 1 TABLET EVERY DAY; Therapy: 08Jun2012 to (Evaluate:12Jun2018) Requested for: 14Dec2017; Last Rx:86Tch6512 Ordered 11. Polyethylene Glycol 3350 Oral Powder; MIX 1 CAPFUL (17GM) IN 8 OUNCES OF WATER, JUICE, OR TEA AND DRINK DAILY; Therapy: 76Rda6476 to (Evaluate:24Oct2017) Requested for: 27Apr2017; Last Rx:14Etv6220 Ordered 12. Venlafaxine HCl ER 75 MG Oral Capsule Extended Release 24 Hour; TAKE ONE CAPSULE BY MOUTH EVERY MORNING AND TAKE 2 CAPSULES EVERY EVENING; Therapy: 13May2012 to (Evaluate:16Fzk7350) Requested for: 06Jan2018; Last Rx:06Jan2018 Ordered 13. Ventolin HFA 108 (90 Base) MCG/ACT Inhalation Aerosol Solution; INHALE 2 PUFFS BY MOUTH EVERY 4 TO 6 HOURS NEEDED; Therapy: 15Ygi2653 to (Last Rx:84Tcj8354) Requested for: 29Pwc4170 Ordered 14. Zolpidem Tartrate 10 MG Oral Tablet; TAKE 1 TABLET BY MOUTH AT BEDTIME NEEDED; Therapy: 30Obl9273 to (Evaluate:05May2018) Requested for: 35Vzq1803; Last Rx:43Evg6292 Ordered Allergies 1. No Known Drug Allergies Vitals Recorded: 40Inp1242 11:41AM Temperature 97.8 F Heart Rate 100 [...] hours of sleep every night.; Status:Complete; Done: 56Xmi9192 Ordered; For:Anxiety; Ordered By:Keyonna Armstrong; 4. Call if: The symptoms seem worse.; Status:Complete; Done: 93Mcy2939 Ordered; For:Anxiety; Ordered By:Keyonna Armstrong; 5. Continue with our present treatment plan.; Status:Complete; Done: 11Utd1849 Ordered; For:Anxiety; Ordered By:Keyonna Armstrong; 6. Call if: Your feelings of being frightened, nervous, anxious, and out of control are happening more often.; Status:Complete; Done: 95Ufv5329 Ordered; For:Anxiety; Ordered By:Keyonna Armstrong; 7. Decreasing the stress in your life may help your condition improve.; Status:Complete; Done: 08Fhu5298 Ordered; For:Anxiety; Ordered By:Keyonna Armstrong; 8. Call 911 if: You are considering suicide.; Status:Complete; Done: 04Erw7100 Ordered; For:Anxiety; Ordered By:Keyonna Armstrong; 9. Call 911 if: You are thinking about harming yourself or someone else.; Status:Complete; Done: 74Llp1282 Ordered; For:Anxiety; Ordered By:Keyonna Armstrong; 10. Seek Immediate Medical Attention if: ; Status:Complete; Done: 96Rgj7191 Ordered; For:Anxiety; Ordered By:Keyonna Armstrong; 11. Seek Immediate Medical Attention if: You feel your heart is beating very fast or skipping beats.; Status:Complete; Done: 21Cto9852 Ordered; For:Anxiety; Ordered By:Keyonna Armstrong; Hypertension 12. Lisinopril 40 MG Oral Tablet; TAKE 1 TABLET BY MOUTH DAILY Rx By: Keyonna Armstrong; Dispense: 90 Days ; #:90 Tablet; Refill: 0; For: Hypertension; TEX = N; Verified Transmission to [id number]; Last Updated By: Nazia Roach; 04/02/2018 12:09:32 PM 13. We encourage you to begin to make lifestyle changes to help control your blood pressure. These may include losing weight, increasing your activity level, limiting salt in your diet, decreasing alcohol intake, and eating a diet low in fat and rich in fruits and vegetables.; Status:Complete; Done: 26Mif7114 Ordered; For:Hypertension; Ordered By:Keyonna Armstrong; 14. Call if: You become dizzy or lightheaded, especially when you stand up after sitting for a while.; Status:Complete; Done: 86Iun7659 Ordered; For:Hypertension; Ordered By:Keyonna Armstrong; 15. Follow-up visit in 3 months Outpatient Follow-up Status: Complete Done: 06Klq8422 Ordered; For: Hypertension; Ordered By: Keyonna Armstrong Performed: Due: 06Xex4850; Last Updated By: Makenzie Waddell; 04/02/2018 12:25:28 PM 16. We want to put you on the DASH diet for 2000 calories.; Status:Complete; Done: 33Xbp2961 Ordered; For:Hypertension; Ordered By:Keyonna Armstrong; 17. Call if: You develop double vision (see two of everything).; Status:Complete; Done: 92Ceo2585 Ordered; For:Hypertension; Ordered By:Keyonna Armstrong; 18. Call if: Your blood pressure is frequently higher than 140/90.; Status:Complete; Done: 13Rlm7999 Ordered; For:Hypertension; Ordered By:Keyonna Armstrong; 19. Call 911 if: You experience a new kind of chest pain (angina) or pressure.; Status:Complete; Done: 58Tmd3359 Ordered; For:Hypertension; Ordered By:Keyonna Armstrong; 20. Call 911 if: You have any symptoms of a stroke.; Status:Complete; Done: 48Flv6959 Ordered; For:Hypertension; Ordered By:Keyonna Armstrong; 21. Seek Immediate Medical Attention if: You have a severe headache that will not go away.; Status:Complete; Done: 68Esw9021 Ordered; For:Hypertension; Ordered By:Keyonna Armstrong; 22. Seek Immediate Medical Attention if: Your blood pressure is greater than 250/120 for 2 consecutive readings.; Status:Complete; Done: 08Ifl1545 Ordered; For:Hypertension; Ordered By:Keyonna Armstrong; Insomnia 23. Avoid foods and beverages that contain caffeine.; Status:Complete; Done: 39Qio4235 Ordered; For:Insomnia; Ordered By:Keyonna Armstrong; 24. Call if: The symptoms seem worse.; Status:Complete; Done: 87Cpv6672 Ordered; For:Insomnia; Ordered By:Keyonna Armstrong; 25. Do not eat anything for at least 2 hours before going to bed.; Status:Complete; Done: 50Avy1612 Ordered; For:Insomnia; Ordered By:Keyonna Armstrong; 26. Call if: You have feelings of extreme sadness and feelings of hopelessness.; Status:Complete; Done: 97Hxu0320 Ordered; For:Insomnia; Ordered By:Keyonna Armstrong; 27. Limit your use of alcohol to 2 drinks or cans of beer a day.; Status:Complete; Done: 72Tse8816 Ordered; For:Insomnia; Ordered By:Keyonna Armstrong; 28. Call if: You have symptoms of anxiety.; Status:Complete; Done: 03Xwm6809 Ordered; For:Insomnia; Ordered By:Keyonna Armstrong; 29. Call if: You still are unable to sleep through the night after 2 weeks.; Status:Complete; Done: 10Azz1765 Ordered; For:Insomnia; Ordered By:Keyonna Armstrong; Morbid obesity 30. Keep a diary of when and what you eat.; Status:Complete; Done: 55Jqc2765 Ordered; For:Morbid obesity; Ordered By:Keyonna Armstrong; 31. Call if: You are considering suicide.; Status:Complete; Done: 10Qjr2562 Ordered; For:Morbid obesity; Ordered By:Keyonna Armstrong; 32. We recommend that you bring your body mass index down to 25.; Status:Complete; Done: 36Tkh0633 Ordered; For:Morbid obesity; Ordered By:Keyonna Armstrong; 33. Call if: You are having difficulty sleeping (insomnia).; Status:Complete; Done: 98Fyx5099 Ordered; For:Morbid obesity; Ordered By:Keyonna Armstrong; 34. Call if: You are urinating too frequently.; Status:Complete; Done: 31Jhp2629 Ordered; For:Morbid obesity; Ordered By:Keyonna Armstrong; 35. Call if: You feel thirsty most of the time.; Status:Complete; Done: 26Wbd7437 Ordered; For:Morbid obesity; Ordered By:Keyonna Armstrong; 36. Call if: You feel your heart is beating very fast or skipping beats.; Status:Complete; Done: 21Lom8289 Ordered; For:Morbid obesity; Ordered By:Keyonna Armstrong; 37. Call if: You have feelings of extreme sadness and feelings of hopelessness.; Status:Complete; Done: 93Zwz5315 Ordered; For:Morbid obesity; Ordered By:Keyonna Armstrong; 38. Call if: You have pain in your abdomen.; Status:Complete; Done: 93Lsr9128 Ordered; For:Morbid obesity; Ordered By:Keyonna Armstrong; 39. Call if: You have symptoms of sleep apnea.; Status:Complete; Done: 17Bql4647 Ordered; For:Morbid obesity; Ordered By:Keyonna Armstrong; 40. Call 911 if: You have sudden or severe chest pain with shortness of breath, rapid breathing, or cough.; Status:Complete; Done: 85Sra5389 Ordered; For:Morbid obesity; Ordered By:Keyonna Armstrong; 41. Seek Immediate Medical Attention if: You experience a new kind of chest pain (angina) or pressure.; Status:Complete; Done: 44Qmz1599 Ordered; For:Morbid obesity; Ordered By:Keyonna Armstrong; Obstructive sleep apnea 42. Avoid sleeping on your back.; Status:Complete; Done: 47Awk4106 Ordered; For:Obstructive sleep apnea; Ordered By:Keyonna Armstrong; 43. Call if: You feel unusually tired.; Status:Complete; Done: 73Uvk5062 Ordered; For:Obstructive sleep apnea; Ordered By:Keyonna Armstrong; 44. Begin or continue regular aerobic exercise. Gradually work up to at least 3 sessions of 30 minutes of exercise a week.; Status:Complete; Done: 36Cju4263 Ordered; For:Obstructive sleep apnea; Ordered By:Keyonna Armstrong; 45. Call if: You have a dry, hacking cough.; Status:Complete; Done: 71Wva2893 Ordered; For:Obstructive sleep apnea; Ordered By:Keyonna Armstrong; 46. Continue with our present treatment plan.; Status:Complete; Done: 23Qtk9307 Ordered; For:Obstructive sleep apnea; Ordered By:Keyonna Armstrong; 47. Call if: You have swelling and puffiness of your lower leg or ankles.; Status:Complete; Done: 88Eii8624 Ordered; For:Obstructive sleep apnea; Ordered By:Keyonna Armstrong; 48. Some eating tips that can help you lose weight.; Status:Complete; Done: 72Auq2355 Ordered; For:Obstructive sleep apnea; Ordered By:Keyonna Armstrong; 49. Call if: Your nose is stuffy or feels plugged.; Status:Complete; Done: 28Wsl8197 Ordered; For:Obstructive sleep apnea; Ordered By:Keyonna Armstrong; 50. We encourage all of our patients to exercise regularly. 30 minutes of exercise or physical activity five or more days a week is recommended for children and adults.; Status:Complete; Done: 48Bjs8106 Ordered; For:Obstructive sleep apnea; Ordered By:Keyonna Armstrong; 51. Call 911 if: You experience a new kind of chest pain (angina) or pressure.; Status:Complete; Done: 62Biq5842 Ordered; For:Obstructive sleep apnea; Ordered By:Keyonna Armstrong; 52. Call 911 if: Your child's lips or face turn blue.; Status:Complete; Done: 16Iku0391 Ordered; For:Obstructive sleep apnea; Ordered By:Keyonna Armstrong; 53. Seek Immediate Medical Attention if: You feel short of breath even while resting.; Status:Complete; Done: 64Zva8531 Ordered; For:Obstructive sleep apnea; Ordered By:Keyonna Armstrong; 54. Seek Immediate Medical Attention if: Your depression is worse.; Status:Complete; Done: 58Nzm8034 Ordered; For:Obstructive sleep apnea; Ordered By:Keyonna Armstrong; [...] given for pt to be seen by KEYPUN[facility]ER for routine pap and to discuss alternatives to her current OCP. Risks of OCP use, again, at her age were discussed in detail with pt and feel at this time there may be a better option for her. Pt is in agreement with this and agrees to see KEYPUNCHER. Labs ordered. More plan after results. Signatures Electronically signed by : Keyonna Armstrong APN; Apr 04 2018 7:51AM ENVIRONMENTAL HEALTH PHYSICIAN (Author) documented in this encounter Plan of Treatment Upcoming Encounters Date Type Department Care Team (Late st Contact Info) Description 07/25/2024 10:00 AM ENVIRONMENTAL HEALTH PHYSICIAN Office Visit [facility] Family & Internal Medicine - [place] [address] [place] [address] Keyonna Armstrong APNP [address] [place] [address] 07/31/2024 10:15 AM ENVIRONMENTAL HEALTH PHYSICIAN Office Visit [facility], [place] [address] [place], [place] [phone] Pepe Mitchell MD [facility]. [place] [address] [place], [place] [id number] documented as of this encounter Visit Diagnoses Not on filedocumented in this encounter
--- OUTSIDE RECORDS SUMMARY | 2024-07-11 00:19 | XMS_ITS | Encounter Summary ---
Author Organization [facility] Address [facility]6 [facility]. [place], [place] [address] [place] [address] Care Team Providers Care Bakery Associate Name Role Phone Unavailable Primary Care Provider Unavailabl e Encounter Details Date Type Department Care Team (Latest Contact Info) Description 10/08/2017 Abstract [facility] Social History Tobacco Use Types Packs/Day Years Used Date Smoking Tobacco: Never Assessed Comments Unknown Sex and Gender Information Value Date Recorded Sex Assigned at Not on file Legal Sex Female 5:47 PM CDT Gender Identity Female 07/17/2022 10:27 AM AUXILIARY ENGINEER Sexual Orientation Straight 07/17/2022 10 :27 AM AUXILIARY ENGINEER documented as of this encounter Progress Notes * CECI Wright - 10/08/2017 3:50 PM CDT Signatures Electronically signed by : Flora Blackwell, ; Oct 08 2017 3:50PM AUXILIARY ENGINEER (Author) documented in this encounter Plan of Treatment Upcoming Encounters Date Type Department Care Team (Late st Contact Info) Description 07/25/2024 10:00 AM AUXILIARY ENGINEER Office Visit [facility] Family & Internal Medicine - [place] [address] [place] [address] Keyonna Armstrong APNP [address] [place] [address] 07/31/2024 10:15 AM AUXILIARY ENGINEER Office Visit Aaliyah Alexander-O'Fallo [facility], [place] [address] [place] [address] Pepe Mitchell MD [facility]. [facility] [address] [place] [address] documented as of this encounter Visit Diagnoses Not on filedocumented in this encounter
--- OUTSIDE RECORDS SUMMARY | 2024-07-11 00:19 | XMS_ITS | Encounter Summary ---
Author Organization [facility] Address [facility]. [place], [place] [address] [place] [address] Care Team Providers Care Cardiology Fellow Name Role Phone Unavailable Primary Care Provider Unavailabl e Encounter Details Date Type Department Care Team (Latest Contact Info) Description 10/29/2017 Abstract [facility] , Claudia Gaines MD Social History Tobacco Use Types Packs/Day Years Used Date Smoking Tobacco: Never Assessed Comments Unknown Sex and Gender Information Value Date Recorded Sex Assigned at Not on file Legal Sex Female 5:47 PM CDT Gender Identity Female 07/17/2022 10:27 AM STAFF CERTIFIED NURSE MIDWIFE Sexual Orientation Straight 07/17/2022 10 :27 AM STAFF CERTIFIED NURSE MIDWIFE documented as of this encounter Progress Notes * Claudia Gaines Md, MD - 10/29/2017 9:38 AM CDT Signatures Electronically signed by : Flora Blackwell, ; Oct 29 2017 9:38AM STAFF CERTIFIED NURSE MIDWIFE (Author) documented in this encounter Plan of Treatment Upcoming Encounters Date Type Department Care Team (Late st Contact Info) Description 07/25/2024 10:00 AM STAFF CERTIFIED NURSE MIDWIFE Office Visit [facility] Family & Internal Medicine - [place] [address] [place] [address] Keyonna Armstrong APNP [address] [place] [address] 07/31/2024 10:15 AM STAFF CERTIFIED NURSE MIDWIFE Office Visit Aaliyah Cardiovascular-O'Fallo [facility], [place] [address] [place] [address] Pepe Mitchell MD [facility]. [facility] [address] [place] [address] documented as of this encounter Visit Diagnoses Not on filedocumented in this encounter
--- OUTSIDE RECORDS SUMMARY | 2024-07-11 00:19 | XMS_ITS | Encounter Summary ---
Author Organization [facility] Address [address] [place] [address]. [place], [place] [address] [place] [address] Care Team Providers Care Maltster Name Role Phone Unavailable Primary Care Provider Unavailabl e Encounter Details Date Type Department Care Team (Latest Contact Info) Description 10/05/2017 Abstract [facility] Social History Tobacco Use Types Packs/Day Years Used Date Smoking Tobacco: Never Assessed Comments Unknown Sex and Gender Information Value Date Recorded Sex Assigned at Not on file Legal Sex Female 5:47 PM CDT Gender Identity Female 07/17/2022 10:27 AM CREDIT HISTORIAN Sexual Orientation Straight 07/17/2022 10 :27 AM CREDIT HISTORIAN documented as of this encounter Progress Notes * Generic Eder Kidd MD - 10/05/2017 3:41 PM CDT Signatures Electronically signed by : Zita Cook, ; Oct 05 2017 3:41PM CREDIT HISTORIAN (Author) documented in this encounter Plan of Treatment Upcoming Encounters Date Type Department Care Team (Late st Contact Info) Description 07/25/2024 10:00 AM CREDIT HISTORIAN Office Visit [facility] Family & Internal Medicine - [place] [address] [place] [address] Keyonna Armstrong APNP [address] [place] [address] 07/31/2024 10:15 AM CREDIT HISTORIAN Office Visit Aaliyah Cardiovascular-O'Fallo [facility], [place] [address] [place] [address] Pepe Mitchell MD [facility] [address] [place], [place] [id number] documented as of this encounter Visit Diagnoses Not on filedocumented in this encounter
--- OUTSIDE RECORDS SUMMARY | 2024-07-11 00:19 | XMS_ITS | Encounter Summary ---
Author Organization [facility] Address [address] [place] [address]. [place], [place] [address] [place] [address] Care Team Providers Care Pin Sorter And Bagger Name Role Phone Unavailable Primary Care Provider Unavailabl e Encounter Details Date Type Department Care Team (Latest Contact Info) Description 10/19/2017 Abstract [facility] Keyonna Armstrong APNP [address] [place] [address] Social History Tobacco Use Types Packs/Day Years Used Date Smoking Tobacco: Never Assessed Comments Unknown Sex and Gender Information Value Date Recorded Sex Assigned at Not on file Legal Sex Female 5:47 PM CDT Gender Identity Female 07/17/2022 10:27 AM VACUUM DRIER OPERATOR Sexual Orientation Straight 07/17/2022 10 :27 AM VACUUM DRIER OPERATOR documented as of this encounter Plan of Treatment Upcoming Encounters Date Type Department Care Team (Late st Contact Info) Description 07/25/2024 10:00 AM VACUUM DRIER OPERATOR Office Visit [facility] Family & Internal Medicine - [place] [address] [place] [address] Keyonna Armstrong APNP [address] [place] [address] 07/31/2024 10:15 AM VACUUM DRIER OPERATOR Office Visit Aaliyah Cardiovascular-O'Fallo n [facility], [facility] [address] [place], [place] [address] Pepe Mitchell MD [facility]. [facility] [address] [place], [place] [id number] documented as of this encounter Procedures Procedure [...] analytical performance characteristics have been determined by [employer] [place]. It has not been cleared or approved by the U.S. Food and Drug Administration. This assay has been validated pursuant to the CLIA regulations and is used for clinical purposes. NORMETANEPHRINE (U) 24 HRS 125(H) 15 - 100 mcg/24 h [employer] TO EPIC CONVERSION Comment: Result Comment: ?? This test was developed and its analytical performance characteristics have been determined by [employer] [place]. It has not been cleared or approved by the U.S. Food and Drug Administration. This assay has been validated pursuant to the CLIA regulations and is used for clinical purposes. TOTAL E+ NE (U) 125(H) 26 - 121 mcg/24 h [employer] TO EPIC CONVERSION Comment: Result Comment: ?? This test was developed and its analytical performance characteristics have been determined by [employer] [place]. It has not been cleared or approved by the U.S. Food and Drug Administration. This assay has been validated pursuant to the CLIA regulations and is used for clinical purposes. DOPAMINE URINE/24H 399 52 - 480 mcg/24 h [employer] TO EPIC CONVERSION Comment: Result Comment: ?? This test was developed and its analytical performance characteristics have been determined by [employer] [place]. It has not been cleared or approved by the U.S. Food and Drug Administration. This assay has been validated pursuant to the CLIA regulations and is used for clinical purposes. CREATININE 24 HR UR (QST) 1.96 0.63 - 2.50 g/24 h [employer] TO EPIC CONVERSION Comment: Result Comment: ?? REPORT COMMENT: SPLIT 10/17/2017 FROM [id number] Test Performed at: [employer] [address] ? LYDIA ALDANA MD,PHD 10/19/2017 11:4 [...] analytical performance characteristics have been determined by [employer] [place], [place]. It has not been cleared or approved by the U.S. Food and Drug Administration. This assay has been validated pursuant to the CLIA regulations and is used for clinical purposes. NORMETANEPHRINE (U) 24 HRS 887(H) 88 - 649 mcg/24 h [employer] TO EPIC CONVERSION Comment: Result Comment: ?? This test was developed and its analytical performance characteristics have been determined by [employer] [place]. It has not been cleared or [...] is recommended for confirmation. Test Performed at: [facility]/[address] ? LYDIA ALDANA MD,PHD 10/19/2017 11:4 6 AM CDT 10/19/2017 11:46 AM CDT Narrative [employer] TO EPIC CONVERSION - 10/25/2017 4:00 PM CDT Result Communication: Call patient with results us Keyonna HILTON URINE ORDERABLES Final Resu lt [employer] TO EPIC CONVERSION documented in this encounter Visit Diagnoses Not on filedocumented in this encounter
--- OUTSIDE RECORDS SUMMARY | 2024-07-11 00:19 | XMS_ITS | Encounter Summary ---
Author Organization [facility] Address [facility]6 [facility] [place], [place] [address] [place] [address] Care Team Providers Care Bottom Loader Name Role Phone Unavailable Primary Care Provider Unavailabl e Encounter Details Date Type Department Care Team (Latest Contact Info) Description 10/26/2017 Abstract [facility] Social History Tobacco Use Types Packs/Day Years Used Date Smoking Tobacco: Never Assessed Comments Unknown Sex and Gender Information Value Date Recorded Sex Assigned at Not on file Legal Sex Female 5:47 PM CDT Gender Identity Female 07/17/2022 10:27 AM CLINICAL DOCUMENTATION DEVELOPER Sexual Orientation Straight 07/17/2022 10 :27 AM CLINICAL DOCUMENTATION DEVELOPER documented as of this encounter Progress Notes * YOBANI Cruz - 10/26/2017 4:32 PM CDT Message Have attempted to call pt multiple times withoug succes. Would still like to speak with pt regarding her results. KAILEY endocrinology referral placed. Verified Results QU-METANEPHRINES, FRACT. LC/MS/MS, 24 HR URINE [id number] 11:46AM Keyonna Armstrong Test Name Result Flag Reference 24 HR URINE VOLUME 3000 mL METANEPHRINE 123 mcg/24 h 58-203 This test was developed and its analytical performance characteristics have been determined by [employer] [place], [place]. It has not been cleared or approved by the U.S. Food and Drug Administration. This assay has been validated pursuant to the CLIA regulations and is used for clinical purposes. NORMETANEPHRINE 887 mcg/24 h H 88-649 This test was developed and its analytical performance characteristics have been determined by [employer] [place]. It has not been cleared or [...] is recommended for confirmation. Test Performed at: [facility] [place] [id number] [place] [address] LYDIA ALDANA MD,PHD QU-CATECHOLAMINES FRAC AND CREATININE, [address] [place] [address] 19Oct2017 11:46AM Keyonna Armstrong Test Name Result Flag Reference 24 HR URINE VOLUME 3000 mL EPINEPHRINE, 24 HR URINE see note Results are below the reportable range for this analyte, which is 2.0 mcg/L. This test was developed and its analytical performance characteristics have been determined by [employer] [place]. It has not been cleared or approved by the U.S. Food and Drug Administration. This assay has been validated pursuant to the CLIA regulations and is used for clinical purposes. NOREPINEPHRINE, 24 HR UR 125 mcg/24 h H 15-100 This test was developed and its analytical performance characteristics have been determined by [employer]. It has not been cleared or approved by the U.S. Food and Drug Administration. This assay has been validated pursuant to the CLIA regulations and is used for clinical purposes. CALCULATED TOTAL (E+NE) 125 mcg/24 h H 26-121 This test was developed and its analytical performance characteristics have been determined by [employer]. It has not been cleared or approved by the U.S. Food and Drug Administration. This assay has been validated pursuant to the CLIA regulations and is used for clinical purposes. DOPAMINE, 24 HR URINE 399 mcg/24 h 52-480 This test was developed and its analytical performance characteristics have been determined by [employer]. It has not been cleared or approved by the U.S. Food and Drug Administration. This assay has been validated pursuant to the CLIA regulations and is used for clinical purposes. CREATININE, 24 HOUR URINE 1.96 g/24 h 0.63-2.50 REPORT COMMENT: SPLIT 10/17/2017 FROM [id number] Test Performed at: [facility]/[address] LYDIA ALDANA MD,PHD QU-COMPREHENSIVE METABOLIC PANEL 485[address] 17Oct2017 11:18AM Keyonna Armstrong Test Name Result Flag Reference GLUCOSE 91 mg/dL 65-99 Fasting reference interval UREA NITROGEN (BUN) 19 mg/dL 7-25 CREATININE 0.80 mg/dL 0.50-1.10 eGFR NON-AFR. COLOMBIAN 87 > OR = 60 UNITS: mL/min/1.73m2 [...] ALT 15 U/L 6-29 Test Performed at: [facility] [place] [address] [place] [address] GENE VILLAR DO,MPH QU-METANEPHRINES, FRACT, FREE, LC/MS/MS, PLASMA [id number] 17Oct2017 11:18AM Keyonna Armstrong Test Name Result Flag Reference METANEPHRINE, FREE 31 pg/mL <=57 This test was developed and its analytical performance characteristics have been determined by [employer] [place]. It has not been cleared or approved by the U.S. Food and Drug Administration. This assay has been validated pursuant to the CLIA regulations and is used for clinical purposes. NORMETANEPHRINE, FREE 181 pg/mL H <=148 This test was developed and its analytical performance characteristics have been determined by [employer] [place]. It has not been cleared or approved by the U.S. Food and Drug Administration. This assay has been validated pursuant to the CLIA regulations and is used for clinical purposes. TOTAL, FREE (MN+NMN) 212 pg/mL H <=205 For additional information, please refer to http://education.[employer]/faq/[employer]ract[employer] (This link is being provided for informational/educatio [...] analytical performance characteristics have been determined by [employer] [place]. It has not been cleared or approved by the U.S. Food and Drug Administration. This assay has been validated pursuant to the CLIA regulations and is used for clinical purposes. Test Performed at: [facility] [place] [address] [place], [place] LYDIA ALDANA MD,PHD QU-PLASMA RENIN ACTIVITY, LC/MS/MS [id number] 11:18AM Keyonna Armstrong Test Name Result Flag Reference PLASMA RENIN ACTIVITY, LC/MS/MS 26.99 ng/mL/h H 0.25-5.82 This test was developed and its analytical performance characteristics have been determined by [facility]. It has not been cleared or approved by FDA. This assay has been validated pursuant to the CLIA regulations and is used for clinical purposes. Test Performed at: [facility] [address] [place] [address] SONYA BLANK MD,PHD,EKATERINA QU-ALDOSTERONE, LC/MS/MS [id number] 17Oct2017 11:18AM Keyonna Armstrong Test Name Result Flag Reference ALDOSTERONE, LC/MS/MS 15 ng/dL Adult Reference Ranges for Aldosterone, LC/MS/MS: Upright 8:00-10:00 am < or = 28 ng/dL Upright 4:00-6:00 pm < or = 21 ng/dL Supine 8:00-10:00 am 3-16 ng/dL This test was developed and its analytical performance characteristics have been determined by [facility]. It has not been cleared or approved by FDA. This assay has been validated pursuant to the CLIA regulations and is used for clinical purposes. Test Performed at: [employer] [address] [place] [address] SONYA BLANK MD,PHD,EKATERINA QU-CBC ( INCLUDES DIFF/PLT [...] 10.2 fL 7.5-12.5 ABSOLUTE NEUTROPHILS 7393 cells/uL [id number] ABSOLUTE LYMPHOCYTES 3485 cells/uL 850-3900 ABSOLUTE MONOCYTES 1053 cells/uL H 200-950 ABSOLUTE EOSINOPHILS 121 cells/uL 15-500 ABSOLUTE BASOPHILS 48 cells/uL 0-200 NEUTROPHILS 61.1 % LYMPHOCYTES 28.8 % MONOCYTES 8.7 % EOSINOPHILS 1.0 % BASOPHILS 0.4 % Test Performed at: [facility] [facility] [place] [address] [place] [address] GENE VILLAR DO,MPH QU-TSH W/REFLEX TO FT4 [id number] 17Oct2017 11:18AM Keyonna Armstrong Test Name Result Flag Reference TSH W/REFLEX TO FT4 1.15 mIU/L Reference Range > or = 20 Years 0.40-4.50 Ranges First trimester 0.26-2.66 Second trimester 0.55-2.73 Third trimester 0.43-2.91 REPORT COMMENT: COLLECTION KIT GIVEN TO PATIENT. PATIENT ADVISED TO RETURN. Test Performed at: [employer] [address] [place] [address] GENE VILLAR DO,MPH documented in this encounter Plan of Treatment Upcoming Encounters Date Type Department Care Team (Late st Contact Info) Description 07/25/2024 10:00 AM CLINICAL DOCUMENTATION DEVELOPER Office Visit [facility] Family & Internal Medicine - [address] [address] Keyonna Armstrong APNP [address] [place] [address] 07/31/2024 10:15 AM CLINICAL DOCUMENTATION DEVELOPER Office Visit Aaliyah Cardi[facility], [facility] [address] [place] [address] Pepe Mitchell MD [facility]. [facility] [address] [place] [address] documented as of this encounter Visit Diagnoses Not on filedocumented in this encounter
--- OUTSIDE RECORDS SUMMARY | 2024-07-11 00:19 | XMS_ITS | Encounter Summary ---
Author Organization [facility] Address [address] [place] [address]. [place], [place] [address] [place] [address] Care Team Providers Care Welder Fitter Helper Name Role Phone Unavailable Primary Care Provider Unavailabl e Encounter Details Date Type Department Care Team (Latest Contact Info) Description 05/29/2017 Abstract [facility] Social History Tobacco Use Types Packs/Day Years Used Date Smoking Tobacco: Never Assessed Comments Unknown Sex and Gender Information Value Date Recorded Sex Assigned at Not on file Legal Sex Female 5:47 PM CDT Gender Identity Female 07/17/2022 10:27 AM RN CLINICAL DOCUMENTATION Sexual Orientation Straight 07/17/2022 10 :27 AM RN CLINICAL DOCUMENTATION documented as of this encounter Plan of Treatment Upcoming Encounters Date Type Department Care Team (Late st Contact Info) Description 07/25/2024 10:00 AM RN CLINICAL DOCUMENTATION Office Visit [facility] Family & Internal Medicine - [place] [address] [place] [address] Keyonna Armstrong APNP [address] [place] [address] 07/31/2024 10:15 AM RN CLINICAL DOCUMENTATION Office Visit [facility]-O'Fallo n [facility], [facility] [address] [place], [place] [phone] Pepe Mitchell MD [facility]. [facility] [address] [place], [place] [phone] documented as of this encounter Visit Diagnoses Not on filedocumented in this encounter
--- OUTSIDE RECORDS SUMMARY | 2024-07-11 00:19 | XMS_ITS | Encounter Summary ---
Author Organization [facility] Address [facility]. [place], [place] [address] [place] [address] Care Team Providers Care Infantry Operations Specialist Name Role Phone Unavailable Primary Care Provider Unavailabl e Encounter Details Date Type Department Care Team (Latest Contact Info) Description 10/17/2017 Abstract [facility] Keyonna Armstrong APNP [address] [place] [address] Social History Tobacco Use Types Packs/Day Years Used Date Smoking Tobacco: Never Assessed Comments Unknown Sex and Gender Information Value Date Recorded Sex Assigned at Not on file Legal Sex Female 5:47 PM CDT Gender Identity Female 07/17/2022 10:27 AM WHIPPED TOPPING FINISHER Sexual Orientation Straight 07/17/2022 10 :27 AM WHIPPED TOPPING FINISHER documented as of this encounter Plan of Treatment Upcoming Encounters Date Type Department Care Team (Late st Contact Info) Description 07/25/2024 10:00 AM WHIPPED TOPPING FINISHER Office Visit [facility] Medical [facility] Family & Internal Medicine - [place] [address] [place] [address] Keyonna Armstrong APNP [address] [place] [address] 07/31/2024 10:15 AM WHIPPED TOPPING FINISHER Office Visit [facility], [facility] [address] [place], [place] [address] Pepe Mitchell MD [facility]. [facility] [address] [place], [place] [id number] documented as of this encounter Procedures Procedure [...] RENIN ACTIVITY (10/17/2017 11:18 AM CDT) Pathologist [facility] PLASMA RENIN ACTIVITY 26.99(H) 0.25 - 5.82 ng/mL/h [facility] TO EPIC CONVERSION Comment: Result Comment: ?? This test was developed and its analytical performance characteristics have been determined by [facility]. It has not been cleared or approved by FDA. This assay has been validated pursuant to the CLIA regulations and is used for clinical purposes. Test Performed at: [employer] [address] [place], [place] ??[address] ? SONYA BLANK MD,PHD,EKATERINA 10/17/2017 11:1 8 AM CDT 10/17/2017 11:18 AM CDT Narrative [facility] TO EPIC CONVERSION - 10/21/2017 11:00 PM CDT Result Communication: Call patient with results Keyonna [facility] Final Resul t [facility] TO EPIC CONVERSION * (ABNORMAL) CBC W/DIFF AUTOMATED (10/17/2017 11:18 AM CDT) Pathologist [facility] Department WBC 12.1(H) 3.8 - 10.8 [facility] TO [...] CONVERSION Comment: Result Comment: Test Performed at: [facility] ??[phone] ? GENE VILLAR DO,MPH 10/17/2017 11:1 8 AM CDT 10/17/2017 11:18 AM CDT Narrative [facility] TO EPIC CONVERSION - 10/21/2017 11:00 PM CDT Result Communication: Call patient with results Keyonna [facility] Final Resul t [facility] TO EPIC CONVERSION * COMPREHENSIVE METABOLIC PANEL (10/17/2017 11:18 AM CDT) [facility] GLUCOSE 91 65 - 99 mg/dL [facility] [...] CONVERSION Comment: Result Comment: Test Performed at: [employer] [address] [place] ??[phone] ? GENE VILLAR DO,MPH 10/17/2017 11:1 8 [...] analytical performance characteristics have been determined by [employer] [place] [place]. It has not been cleared or approved by the U.S. Food and Drug Administration. This assay has been validated pursuant to the CLIA regulations and is used for clinical purposes. NORMETANEPHRINE FREE S/P/B 181(H) <=148 pg/mL [facility] TO EPIC CONVERSION Comment: Result Comment: ?? This test was developed and its analytical performance characteristics have been determined by [employer] [place] [place]. It has not been cleared or approved by the U.S. Food and Drug Administration. This assay has been validated pursuant to the CLIA regulations and is used for clinical purposes. METANEPHRINES (U) 212(H) <=205 pg/mL [facility] TO EPIC CONVERSION Comment: Result Comment: ?? For additional information, please refer to http://education.Wuzzuf/faq/[employer] (This link is being provided for informational/educatio [...] analytical performance characteristics have been determined by [facility] [place] [place]. It has not been cleared or approved by the U.S. Food and Drug Administration. This assay has been validated pursuant to the CLIA regulations and is used for clinical purposes. Test Performed at: [employer] [address] ? LYDIA ALDANA MD,PHD 10/17/2017 11:1 [...] PATIENT ADVISED TO RETURN. Test Performed at: [facility] [address] [place], [place] ??[phone] ? GENE VILLAR DO,MPH 10/17/2017 11:1 8 AM CDT 10/17/2017 11:18 AM CDT Narrative [facility] TO EPIC CONVERSION - 10/21/2017 11:00 PM CDT Result Communication: Call patient with results Keyonna [facility] Final Resul t Performing Organization Address [facility] de Phone Number [facility] TO EPIC CONVERSION [...] analytical performance characteristics have been determined by [facility]. It has not been cleared or approved by FDA. This assay has been validated pursuant to the CLIA regulations and is used for clinical purposes. Test Performed at: [employer] [address] [place], [place] ??[phone] ? SONYA BLANK MD,PHD,EKATERINA 10/17/2017 11:1 8 AM CDT 10/17/2017 11:18 AM CDT Narrative [facility] TO EPIC CONVERSION - 10/21/2017 11:00 PM CDT Result Communication: Call patient with results Keyonna [facility] Final Resul t Performing Organization Address [facility] Co de Phone Number [facility] TO EPIC CONVERSION documented in this encounter Visit Diagnoses Not on filedocumented in this encounter
--- OUTSIDE RECORDS SUMMARY | 2024-07-11 00:19 | XMS_ITS | Encounter Summary ---
Author Organization [facility] Address [address] [place] [address]. [place], [place] [address] [place] [address] Care Team Providers Care Ring Stamper Name Role Phone Unavailable Primary Care Provider Unavailabl e Encounter Details Date Type Department Care Team (Late st Contact Info) Description 09/27/2017 Abstract [facility] Medical Group Family & Internal Medicine [place] [address] [place] [address] Keyonna Armstrong APNP [address] [place] [address] Social History Tobacco Use Types Packs/Day Years Used Date Smoking Tobacco: Never Assessed Comments Unknown Sex and Gender Information Value Date Recorded Sex Assigned at Not on file Legal Sex Female 5:47 PM CDT Gender Identity Female 07/17/2022 10:27 AM BANK ACCOUNTANT Sexual Orientation Straight 07/17/2022 10 :27 AM BANK ACCOUNTANT documented as of this encounter Last Filed Vital Signs Vital Sign Reading Time Taken Comments Blood Pressure 191/115 09/27/2017 12:05 PM BANK ACCOUNTANT Pulse 126 09/27/2017 12:05 PM BANK ACCOUNTANT Temperature - - Respiratory Rate - - Oxygen Saturation - - Inhaled Oxygen Concentration - - Weight 136.1 kg (300 lb) 09/27/2017 12:05 PM BANK ACCOUNTANT Height 163.8 cm (5' 4.5) 09/27/2017 12:05 PM CS T Body Mass Index 50.7 09/27/2017 12:05 PM BANK ACCOUNTANT documented in this encounter Progress Notes * [...] BY MOUTH EVERY DAY; Therapy: 30May2012 to (Evaluate:43Woe6405) Requested for: 78Yha3186; Last Rx:[id number] Ordered 3. HydroCHLOROthiazide 25 MG Oral Tablet; TAKE ONE TABLET BY MOUTH EVERY DAY; Therapy: 20May2012 to (Evaluate:98Gls9644) Requested for: 27Rna6532; Last Rx:[id number] Ordered 4. Ibuprofen 800 MG Oral Tablet; TAKE 1 TABLET 3 TIMES DAILY WITH FOOD NEEDED for pain; Therapy: 11Aug2014 to (Evaluate:12May2016) Requested for: 33Vjk8763; Last Rx:[id number] Ordered 5. LORazepam 0.5 MG Oral Tablet; TAKE 1 TABLET BY MOUTH 3 TIMES A DAY NEEDED; Therapy: 90Lkv8257 to (Evaluate:20Oct2017) Requested for: 20Sep2017; Last Rx:20Sep2017; Status: ACTIVE - Renewal Denied Ordered 6. MetFORMIN HCl - 500 MG Oral Tablet; TAKE 1 TABLET BY MOUTH EVERY MORNING AND THEN TAKE 2 TABLETS AT BEDTIME; Therapy: 24Dec2011 to (Evaluate:19Oct2017) Requested for: 11Mqb0773; Last Rx:[id number] Ordered 7. Methocarbamol 750 MG Oral Tablet; TAKE 1 TO 2 TABLETS 3 TIMES DAILY NEEDED FOR MUSCLE SPASM; Therapy: 11Aug2014 to (Evaluate:62Evr8280) Requested for: 37Xbq6441; Last Rx:[id number] Ordered 8. Metoprolol Succinate ER 100 MG Oral Tablet Extended Release 24 Hour; TAKE 1 TABLET DAILY; Therapy: 08May2017 to (Evaluate:38Zqf4730) Requested for: 08May2017; Last Rx:[id number] Ordered 9. Ondansetron 4 MG Oral Tablet Disintegrating; DISSOLVE 1-2 TABLETS ON TONGUE EVERY 8 HOURS NEEDED FOR NAUSEA ..PATIENT NEEDS APPOINTMENT; Therapy: 02Mar2015 to (Evaluate:25Nov2016) Requested for: 20Nov2016; Last Rx:20Nov2016 Ordered 10. Pantoprazole Sodium 40 MG Oral Tablet Delayed Release; TAKE 1 TABLET EVERY DAY; Therapy: 08Jun2012 to (Evaluate:21Dec2017) Requested for: 86Ahs5279; Last Rx:[id number] Ordered 11. Polyethylene Glycol 3350 Oral Powder; MIX 1 CAPFUL (17GM) IN 8 OUNCES OF WATER, JUICE, OR TEA AND DRINK DAILY; Therapy: 81Gjj1043 to (Evaluate:24Oct2017) Requested for: 27Apr2017; Last Rx:[id number] Ordered 12. Venlafaxine HCl ER 75 MG Oral Capsule Extended Release 24 Hour; TAKE ONE CAPSULE BY MOUTH EVERY MORNING AND TAKE 2 CAPSULES BY MOUTH EVERY EVENING; Therapy: 13May2012 to (Evaluate:26Tcl2821) Requested for: 20Sep2017; Last Rx:[id number]; Status: ACTIVE - Renewal Denied Ordered 13. Zolpidem Tartrate 10 MG Oral Tablet; TAKE 1 TABLET AT BEDTIME NEEDED FOR INSOMNIA; Therapy: 15Sep2016 to (Evaluate:11Oct2017) Requested for: 10Snc0713; Last Rx:[id number] Ordered Allergies 1. No Known Drug Allergies [...] fasting labs for further eval of this. [facility] called---Pt negative for PE and any [...] Status:Active; Requested for:27Sep2017; Perform:Other Radiology; Order Comments:call [phone] with results; Due:27Sep2017; Last UpdatedBy:Nenita Young; 09/27/2017 [...] 5; For: Shortness of breath at rest; TXE = N; Verified Transmission to [id number]; Last Updated By: Nazia Roach;09/27/2017 2:41:43 PM Wheezing 45. Ipratropium-Albuterol 0.5-2.5 (3) MG/3ML Inhalation Solution Rx By: Keyonna Armstrong; For: Wheezing; Dose of 3 MG; Inhalation; TEX = N; Administered by: Sosa Brown MA: 09/27/2017 12:31:00 PM; Last Updated By: Sosa Brown; 09/27/2017 12:35:05 PM Signatures Electronically signed by : Keyonna Armstrong APN; Sep 27 2017 6:18PM BANK ACCOUNTANT (Author) documented in this encounter Plan of Treatment Upcoming Encounters Date Type Department Care Team (Late st Contact Info) Description 07/25/2024 10:00 AM BANK ACCOUNTANT Office Visit [facility] Medical Group Family & Internal Medicine [address] [place] [address] Keyonna Armstrong APNP [address] [place] [address] 07/31/2024 10:15 AM BANK ACCOUNTANT Office Visit [facility] [address] [place], [place] [address] Pepe Mitchell MD Three [facility]. [facility] [address] [place] [address] documented as of this encounter Visit Diagnoses Not on filedocumented in this encounter
--- OUTSIDE RECORDS SUMMARY | 2024-07-11 00:19 | XMS_ITS | Encounter Summary ---
Author Organization [facility] Address [facility]. [place], [place] [address] [place] [address] Care Team Providers Care Physical Security Engineer Name Role Phone Unavailable Primary Care Provider Unavailabl e Encounter Details Date Type Department Care Team (Late st Contact Info) Description 09/20/2017 Abstract [facility] Group Family & Internal Medicine [place] [address] [place] [address] Keyonna Armstrong APNP [address] [place] [address] Social History Tobacco Use Types Packs/Day Years Used Date Smoking Tobacco: Never Assessed Comments Unknown Sex and Gender Information Value Date Recorded Sex Assigned at Not on file Legal Sex Female 5:47 PM CDT Gender Identity Female 07/17/2022 10:27 AM USER EXPERIENCE DEVELOPER Sexual Orientation Straight 07/17/2022 10 :27 AM USER EXPERIENCE DEVELOPER documented as of this encounter Last Filed Vital Signs Vital Sign Reading Time Taken Comments Blood Pressure 160/102 09/20/2017 11:38 AM USER EXPERIENCE DEVELOPER Pulse 142 09/20/2017 11:38 AM USER EXPERIENCE DEVELOPER Temperature - - Respiratory Rate - - Oxygen Saturation - - Inhaled Oxygen Concentration - - Weight 137.1 kg (302 lb 4 oz) 09/20/2017 11:38 A M USER EXPERIENCE DEVELOPER Height 163.8 cm (5' 4.5) 09/20/2017 11:38 AM CS T Body Mass Index 51.08 09/20/2017 11:38 AM USER EXPERIENCE DEVELOPER documented in this encounter Progress Notes * [...] BY MOUTH EVERY DAY; Therapy: 30May2012 to (Evaluate:64Jtv8008) Requested for: 15The5498; Last Rx:[id number] Ordered 2. HydroCHLOROthiazide 25 MG Oral Tablet; TAKE ONE TABLET BY MOUTH EVERY DAY; Therapy: 20May2012 to (Evaluate:87Geu6573) Requested for: 51Hec1553; Last Rx:[id number] Ordered 3. Ibuprofen 800 MG Oral Tablet; TAKE 1 TABLET 3 TIMES DAILY WITH FOOD NEEDED for pain; Therapy: 11Aug2014 to (Evaluate:12May2016) Requested for: 28Bka4536; Last Rx:[id number] Ordered 4. LORazepam 0.5 MG Oral Tablet; TAKE 1 TABLET BY MOUTH 3 TIMES A DAY NEEDED; Therapy: 90Aas1788 to (Evaluate:22Sep2017) Requested for: 87Upx6031; Last Rx:[id number] Ordered 5. MetFORMIN HCl - 500 MG Oral Tablet; TAKE 1 TABLET BY MOUTH EVERY MORNING AND THEN TAKE 2 TABLETS AT BEDTIME; Therapy: 24Dec2011 to (Evaluate:19Oct2017) Requested for: 43Ouc0289; Last Rx:[id number] Ordered 6. Methocarbamol 750 MG Oral Tablet; TAKE 1 TO 2 TABLETS 3 TIMES DAILY NEEDED FOR MUSCLE SPASM; Therapy: 11Aug2014 to (Evaluate:95Wkh5031) Requested for: 02Mxs6355; Last Rx:86Osm4821 Ordered 7. Metoprolol Succinate ER 100 MG Oral Tablet Extended Release 24 Hour; TAKE 1 TABLET DAILY; Therapy: 08May2017 to (Evaluate:91Iaz2444) Requested for: 08May2017; Last Rx:47Owe5330 Ordered 8. Ondansetron 4 MG Oral Tablet Disintegrating; DISSOLVE 1-2 TABLETS ON TONGUE EVERY 8 HOURS NEEDED FOR NAUSEA ..PATIENT NEEDS APPOINTMENT; Therapy: 02Mar2015 to (Evaluate:25Nov2016) Requested for: 20Nov2016; Last Rx:[id number] Ordered 9. Pantoprazole Sodium 40 MG Oral Tablet Delayed Release; TAKE 1 TABLET EVERY DAY; Therapy: 08Jun2012 to (Evaluate:21Dec2017) Requested for: 80Pgj7407; Last Rx:[id number] Ordered 10. Polyethylene Glycol 3350 Oral Powder; MIX 1 CAPFUL (17GM) IN 8 OUNCES OF WATER, JUICE, OR TEA AND DRINK DAILY; Therapy: 37Pin5172 to (Evaluate:24Oct2017) Requested for: 27Apr2017; Last Rx:57Yhq1073 Ordered 11. Venlafaxine HCl ER 75 MG Oral Capsule Extended Release 24 Hour; TAKE ONE CAPSULE BY MOUTH EVERY MORNING AND TAKE 2 CAPSULES BY MOUTH EVERY EVENING; Therapy: 13May2012 to (Evaluate:51Jah3315) Requested for: 20Sep2017; Last Rx:75Gjt6113; Status: ACTIVE - Renewal Denied Ordered 12. Zolpidem Tartrate 10 MG Oral Tablet; TAKE 1 TABLET AT BEDTIME NEEDED FOR INSOMNIA; Therapy: 84Gtz5705 to (Evaluate:11Oct2017) Requested for: 07Yny4831; Last Rx:54Vsh1173 Ordered Allergies 1. No Known Drug Allergies [...] For:Acute URI; Ordered By:Keyonna Armstrong; 2. Avoid irhw-crv-thwggtu cold remedies unless recommended by us.; Status:Complete; [...] weeks.; Status:Complete; Done: 20Sep2017 Ordered; For:Anxiety; Ordered By:Keynona Armstrong; 24. Call if: Your feelings of [...] Nazia Roach; 09/20/2017 4:24:29 PM Called into [facility];LM-KKR RN Called into [facility];LM-KKR RN Called into [facility];LM-KKR RN called into [facility] [place] Called into [facility] - LM /tjt Called into [facility] - LM /tjt Called into [facility] - LM /tjt Called into [facility] - LM /tjt Called into [facility] - LM [facility]tjt Called into [facility] - LM /tjt Called into [facility] - LM /tjt Called into [facility] - LM /tjt Called into [facility] - LM - gets #90 every 30 days /tjt Called into [facility] - LM /tjt Called into [facility] - LM /tjt Called into [facility] - LM /tjt Called in to [facility] - LM /tjt Called in to [facility] - LM /tjt HTN/tachycardia - [...] Keyonna Armstrong APN; Sep 20 2017 5:30PM USER EXPERIENCE DEVELOPER (Author) documented in this encounter Plan of Treatment Upcoming Encounters Date Type Department Care Team (Late st Contact Info) Description 07/25/2024 10:00 AM USER EXPERIENCE DEVELOPER Office Visit [facility] Group Family & Internal Medicine - [place] [address] [place] [address] Keyonna Armstrong APNP [address] [place] [address] 07/31/2024 10:15 AM USER EXPERIENCE DEVELOPER Office Visit [facility] [address] [place] [address] Pepe Mitchell MD [facility]. [facility] [address] [place] [address] documented as of this encounter Procedures Procedure Name Priority Date/Time Associated Diagnosis Comments CARDIOLOGY GENERIC Routine 09/20/2017 5: 27 PM USER EXPERIENCE DEVELOPER INFLUENZA A & B Routine 09/20/2017 12:34 PM USER EXPERIENCE DEVELOPER documented in this encounter Results * CARDIOLOGY GENERIC (09/20/2017 5:27 PM USER EXPERIENCE DEVELOPER) 09/20/2017 5:27 PM USER EXPERIENCE DEVELOPER 09/20/2017 5:27 PM USER EXPERIENCE DEVELOPER Narrative [facility] TO EPIC CONVERSION - 09/20/2017 5:27 PM USER EXPERIENCE DEVELOPER Sinus tachycardia, no acute changes noted. Procedure Note Keyonna Armstrong APNP - 05/16/2018 Sinus tachycardia, no acute changes noted. Keyonna [facility] Final Res ult [facility] TO EPIC CONVERSION * INFLUENZA A & B (09/20/2017 12:34 PM USER EXPERIENCE DEVELOPER) INFULENZA A AB Positive [facility] OUP TO EPIC CONVERSION INFLUENZA B AB Negative [facility] OUP TO EPIC CONVERSION Internal Control: Yes [facility] TO EPIC CONVERSION 09/20/2017 12:3 4 PM USER EXPERIENCE DEVELOPER 09/20/2017 12:34 PM USER EXPERIENCE DEVELOPER Narrative [facility] TO EPIC CONVERSION - 09/20/2017 12:34 PM USER EXPERIENCE DEVELOPER Result Communication: Discussed results with patient Keyonna [facility] GENER[facility] ORDE RABLES Final Result [facility] TO EPIC CONVERSION documented in this encounter Visit Diagnoses Not on filedocumented in this encounter
--- OUTSIDE RECORDS SUMMARY | 2024-07-11 00:19 | XMS_ITS | Encounter Summary ---
Author Organization [facility] Address [address] [place] [address]. [place], [place] [address] [place] [address] Care Team Providers Care Crm Administrator Name Role Phone Unavailable Primary Care Provider Unavailabl e Encounter Details Date Type Department Care Team (Latest Contact Info) Description 11/08/2017 Abstract [facility] , Claudia Gaines MD Social History Tobacco Use Types Packs/Day Years Used Date Smoking Tobacco: Never Assessed Comments Unknown Sex and Gender Information Value Date Recorded Sex Assigned at Not on file Legal Sex Female 5:47 PM CDT Gender Identity Female 07/17/2022 10:27 AM SUPERINTENDENT HORTICULTURE Sexual Orientation Straight 07/17/2022 10 :27 AM SUPERINTENDENT HORTICULTURE documented as of this encounter Progress Notes * Claudia Gaines Md, MD - 11/08/2017 12:54 PM CDT Message Recorded as Task Date: 11/08/2017 09:17 AM, Created By: Flora Blackwell Task Name: Medical Complaint Callback Assigned To: [facility] Nurse Team Regarding Patient: Veronica Evangelista, Status: Active Comment: Flora Blackwell - 08 Nov 2017 9:17 AM TASK CREATED Patient has appointment with [facility] 11-13-17 and wanted you to know. requesting refill on zolpidem Keyonna Armstrong - 08 Nov 2017 9:23 AM TASK REASSIGNED: Previously Assigned To Keyonna Armstrong [place] to fill zolpidem----- Message: noted-refill sent to pharmacy -sjs Signatures Electronically signed by : Nenita Young MA; Nov 08 2017 12:54PM SUPERINTENDENT HORTICULTURE (Author) documented in this encounter Plan of Treatment Upcoming Encounters Date Type Department Care Team (Late st Contact Info) Description 07/25/2024 10:00 AM SUPERINTENDENT HORTICULTURE Office Visit [facility] Medical Group Family & Internal Medicine - [place] [place] [address] Keyonna Armstrong APNP [address] [place] [address] 07/31/2024 10:15 AM SUPERINTENDENT HORTICULTURE Office Visit [facility] [address] [place], [place] [address] Pepe Mitchell MD Three [facility]. [facility] [address] [place] [address] documented as of this encounter Visit Diagnoses Not on filedocumented in this encounter
--- OUTSIDE RECORDS SUMMARY | 2024-07-11 00:21 | XMS_ITS | Encounter Summary ---
Author Organization [facility] Address [address] [place] [address]. [place], [place] [address] [place] [address] Care Team Providers Care Web Application Dev Specialist Name Role Phone Royer Hidalgo MD Primary Care Provider [phone] Encounter Details Date Type Department Care Team (Late st Contact Info) Description 04/25/2016 Abstract [facility] [place] [address] Royer Hidalgo MD [address] [facility] [place] [phone] Social History Tobacco Use Types Packs/Day Years Used Date Smoking Tobacco: Never Assessed Comments Unknown Sex and Gender Information Value Date Recorded Sex Assigned at Not on file Legal Sex Female 5:47 PM CDT Gender Identity Female 07/17/2022 10:27 AM GENERAL COUNSEL Sexual Orientation Straight 07/17/2022 10 :27 AM GENERAL COUNSEL documented as of this encounter Plan of Treatment Upcoming Encounters Date Type Department Care Team (Late st Contact Info) Description 07/25/2024 10:00 AM GENERAL COUNSEL Office Visit [facility] Family & Internal Medicine - [place] [address] [place] [address] Keyonna Armstrong APNP [address] [place] [address] 07/31/2024 10:15 AM GENERAL COUNSEL Office Visit [facility], [address] [address] Pepe Mitchell MD [facility] [address] [place] [address] documented as of this encounter Procedures Procedure [...] - 4.20 mIU/mL 04/25/2016 10:36 PM CDT [facility] Comment:FREE T4 NOT INDICATE D SERUM OR PLASMA SPECIMEN / Unknown 04/25/2016 11:50 AM CDT 04/25/2016 9:53 PM CDT us Generic Conversion Md [facility] Final R esult [facility] [address] [place] [address], * (ABNORMAL) LIPID PANEL (04/25/2016 11:50 AM CDT) CHOLESTEROL 163 <200 MG/DL 04/25/2016 10:36 PM CDT [facility] Comment: NOTE: Acetaminophen, N Acetyl p benzoquinone imine (NAPQI), N acetylcysteine (NAC), Metamizole, 4 Aminoantipyrine (4 AAP) and 4 Methylamino antipyrine (4 MAP) at high concentrations can cause falsely low results on Lactate, Uric Acid, Cholesterol, Triglyceride, HDL, and Direct LDL. TRIGLYCERIDES 217(H) <150 MG/DL 04/25/2016 10:36 PM [facility] HDL 43(L) >59 MG/DL 04/25/2016 10:36 PM [facility] LDL (CALCULATED) 77 <100 MG/DL 04/25/2016 10:36 PM [facility] NON HDL CHOLESTEROL 120 <130 MG/DL 04/25/2016 10:36 PM T [facility] Comment: NOTE: WHEN THE TRIGLYCERIDES ARE >200 mg/dL, NON HDL C IS A SECONDARY TARGET OF THERAPY, WITH A GOAL 30 mg/dL HIGHER THAN THE IDENTIFIED LDL C GOAL. CHOL/HDL RATIO 3.8 0.0 - 4.5 04/25/2016 10:36 PM [facility] VLDL CALCULATION 43 5 - 55 MG/DL 04/25/2016 10:36 PM [facility] LIPID INTERPRETATION 04/25/2016 10:36 PM [facility] Comment: NIH CONCENSUS REPORT [...] Conversion Md [facility] Final R esult [facility] [address] [place] [address], * (ABNORMAL) COMPREHENSIVE METABOLIC PANEL (04/25/2016 11:50 AM CDT) GLUCOSE 89 70 - 99 mg/dL 04/25/2016 10:36 PM CDT [facility] BUN 10 8 - 23 mg/dL 04/25/2016 10:36 PM CDT [facility] CREATININE S/P/B 0.74 0.60 - 1.10 mg/dL 04/25/2016 10:36 PM CDT [facility] SODIUM S/P/B 134(L) 136 - 145 mmol/L 04/25/2016 10:36 PM CDT [facility] POTASSIUM S/P/B 4.6 3.5 - 5.1 mmol/L 04/25/2016 10:36 PM CDT [facility] CHLORIDE S/P/B 93(L) 98 - 107 mmol/L 04/25/2016 10:36 PM CDT [facility] CO2 26 22 - 29 mmol/L 04/25/2016 10:36 PM CDT [facility] BILIRUBIN TOTAL S/P/B 0.3 0.2 - 1.2 mg/dL 04/25/2016 10:36 PM CDT [facility] CALCIUM S/P/B 9.8 8.6 - 10.2 mg/dL 04/25/2016 10:36 PM CDT [facility] ALKALINE PHOSPHATASE S/P/B 74 35 - 104 U/L 04/25/2016 10:36 PM CDT [facility] AST 16 0 - 32 U/L 04/25/2016 10:36 PM CDT [facility] TOTAL PROTEIN S/P/B 7.4 6.4 - 8.3 g/dL 04/25/2016 10:36 PM CDT [facility] ALBUMIN S/P/B 4.4 3.5 - 5.2 g/dL 04/25/2016 10:36 PM CDT [facility] ALT 15 0 - 33 U/L 04/25/2016 10:36 PM CDT [facility] GLOBULIN 3.0 2.3 - 3.6 g/dL 04/25/2016 10:36 PM CDT [facility] A/G RATIO 1.5 1.0 - 2.0 04/25/2016 10:36 PM CDT [facility] ANION GAP 20 8 - 20 04/25/2016 10:36 PM CDT [facility] EGFR NON-AFR. AMER. >60 >60 mL/min/1.7 3m'2 04/25/2016 10:36 PM CDT [facility] EGFR AFR. AMER. >60 >60 mL/min/1.7 3m'2 04/25/2016 10:36 PM CDT [facility] Comment: NOTE: eGFR is not calculated for patients <18 years of age. This is an estimated GFR (CKD EPI) and should not be used for calculating drug doses. 04/25/2016 11:5 0 AM CDT 04/25/2016 9:53 PM CDT us Generic Conversion Md [facility] Final R esult [facility] [address] [place] [address], * (ABNORMAL) CBC W/DIFF AUTOMATED (04/25/2016 11:50 AM CDT) WBC 12.1(H) 4.8 - 10.8 X10'3/uL 04/25/2016 9:56 PM CDT [facility] RBC 4.88 4.20 - 5.40 X10'6/uL 04/25/2016 9:56 PM CDT [facility] HGB 15.1 12.0 - 16.0 g/dL 04/25/2016 9:56 PM CDT [facility] HCT 47.1 38.0 - 48.0 % 04/25/2016 9:56 PM CDT [facility] MCV 96.5 81.0 - 99.0 fL 04/25/2016 9:56 PM CDT [facility] MCH 30.9 27.0 - 31.0 pg 04/25/2016 9:56 PM CDT [facility] MCHC 32.1 32.0 - 36.0 g/dL 04/25/2016 9:56 PM CDT [facility] RDW 13.8 11.5 - 14.5 % 04/25/2016 9:56 PM CDT [facility] PLT 336 130 - 400 X10'3/uL 04/25/2016 9:56 PM CDT [facility] MPV 10.4 9.3 - 12.2 fL 04/25/2016 9:56 PM CDT [facility] DIFFERENTIAL TYPE AUTOMATED 04/25/2016 9:56 PM CDT [facility] NEUTROPHILS % 63.7 43.0 - 65.0 % 04/25/2016 9:56 PM CDT [facility] LYMPHOCYTES % 26.3 20.0 - 46.0 % 04/25/2016 9:56 PM CDT [facility] MONOCYTES % 8.5 5.0 - 12.0 % 04/25/2016 9:56 PM CDT [facility] EOSINOPHILS 0.7(L) 1.0 - 3.0 % 04/25/2016 9:56 PM CDT [facility] BASOPHILS 0.6 0.0 - 1.0 % 04/25/2016 9:56 PM CDT [facility] IMMATURE GRANS % 0.2 0.0 - 1.0 % 04/25/2016 9:56 PM CDT [facility] 04/25/2016 11:5 0 AM CDT 04/25/2016 9:53 PM CDT us Generic Conversion Md [facility] Final R esult [facility] [address] [place] [address], * HEMOGLOBIN, GLYCOSYLATED (04/25/2016 11:50 AM CDT) HGB A1C 5.3 4.8 - 5.6 % 04/25/2016 10:10 PM CDT [facility] Comment: ADA GUIDELINES 2010 5.7 TO 6.4% INCREASED RISK OF DIABETES > OR = 6.5% CONSISTENT WITH DIABETES ESTIMATED AVG GLUCOSE 105 mg/dL 04/25/2016 10:10 PM CDT [facility] 04/25/2016 11:5 0 AM CDT 04/25/2016 9:53 PM CDT us Generic Conversion Md [facility] Final R esult [facility] [address] [place] [address], documented in this encounter Visit Diagnoses Diagnosis Encounter for general adult medical examination without abnormal findings Unspecified general medical examination documented in this encounter Care Teams Web Application Dev Specialist Relationship Specialty Start Date End Date Royer Hidalgo MD PCP - General 04/25/16 09/14/16 documented as of this encounter
--- OUTSIDE RECORDS SUMMARY | 2024-07-11 00:21 | XMS_ITS | Encounter Summary ---
Author Organization [facility] Address [address] [place] [address]. [place], [place] [address] [place] [address] Care Team Providers Care Softball Umpire Name Role Phone Unavailable Primary Care Provider Unavailabl e Encounter Details Date Type Department Care Team (Late st Contact Info) Description 09/15/2016 Abstract [facility] [address] Royer Hidalgo MD [address] [facility] [place] [phone] Social History Tobacco Use Types Packs/Day Years Used Date Smoking Tobacco: Never Assessed Comments Unknown Sex and Gender Information Value Date Recorded Sex Assigned at Not on file Legal Sex Female 5:47 PM CDT Gender Identity Female 07/17/2022 10:27 AM CONSUMER LENDING MANAGER Sexual Orientation Straight 07/17/2022 10 :27 AM CONSUMER LENDING MANAGER documented as of this encounter Plan of Treatment Upcoming Encounters Date Type Department Care Team (Late st Contact Info) Description 07/25/2024 10:00 AM CONSUMER LENDING MANAGER Office Visit [facility] Family & Internal Medicine - [place] [address] [place] [address] Keyonna Armstrong APNP [address] [place] [address] 07/31/2024 10:15 AM CONSUMER LENDING MANAGER Office Visit [facility] THREE [facility], [address] [address] Pepe Mitchell MD Three [address] [address] documented as of this encounter Procedures Procedure Name Priority Date/Time Associated Diagnosis Comments URINALYSIS WI REFLEX TO CULTURE Routine 09/15/2016 5:48 PM CONSUMER LENDING MANAGER documented in this encounter Results * URINALYSIS WI REFLEX TO CULTURE (09/15/2016 5:48 PM CONSUMER LENDING MANAGER) SOURCE (FLUID) URINE CLEAN CATCH 09/15/2016 6:48 PM [facility] COLOR (U) YELLOW 09/15/2016 10:05 PM [facility] TRANSPARENCY CLOUDY 09/15/2016 10:05 PM [facility] SPECIFIC GRAVITY (U) 1.013 1.001 - 1.030 09/15/2016 10:05 PM [facility] U PH 6.0 5.0 - 9.0 09/15/2016 10:05 PM [facility] LEUKOCYTES (U) NEGATIVE NEGATIVE 09/15/2016 10:05 PM [facility] NITRITES NEGATIVE NEGATIVE 09/15/2016 10:05 PM [facility] PROTEIN (U) NEGATIVE <30 MG/DL 09/15/2016 10:05 PM [facility] URINE GLUCOSE NEGATIVE NEGATIVE MG/DL 09/15/2016 10:05 PM [facility] KETONES MG/DL (U) NEGATIVE NEGATIVE MG/DL 09/15/2016 10:05 PM [facility] UROBILINOGEN NEGATIVE NEGATIVE MG/DL 09/15/2016 10:05 PM [facility] BILIRUBIN (U) NEGATIVE NEGATIVE MG/DL 09/15/2016 10:05 PM [facility] BLOOD (U) NEGATIVE NEGATIVE 09/15/2016 10:05 PM [facility] CULTURE & SENSITIVITY INDICATED? CULTURE IS NOT INDICATED 09/15/2016 10:05 PM [facility] SQUAMOUS EPITHELIALS MODERATE /LPF 09/15/2016 10:05 PM [facility] MUCUS RARE /LPF 09/15/2016 10:05 PM [facility] WBC/HPF <1 <6 /HPF 09/15/2016 10:05 PM [facility] RBC/HPF 2 <6 /HPF 09/15/2016 10:05 PM [facility] 09/15/2016 5:48 PM CONSUMER LENDING MANAGER 09/15/2016 9:05 PM CONSUMER LENDING MANAGER us Generic Conversion Md [facility] URINE ORDERABLES Final Result [facility] [address] [place] [address], [place] [phone] documented in this encounter Visit Diagnoses Diagnosis Unspecified symptoms and signs involving the genitourinary system documented in this encounter
--- OUTSIDE RECORDS SUMMARY | 2024-07-11 00:21 | XMS_ITS | Encounter Summary ---
Author Organization [facility] Address [address] [place] [address]. [place], [place] [address] [place] [address] Care Team Providers Care Psychiatric Therapist Name Role Phone Royer Hidalgo MD Primary Care Provider [phone] Royer Hidalgo MD Primary Care Provider [phone] Encounter Details Date Type Department Care Team (Late st Contact Info) Description 05/17/2015 Abstract [place] [address] Royer Hidalgo MD [address] [facility] [place] [phone] Social History Tobacco Use Types Packs/Day Years Used Date Smoking Tobacco: Never Assessed Comments Unknown Sex and Gender Information Value Date Recorded Sex Assigned at Not on file Legal Sex Female 5:47 PM CDT Gender Identity Female 07/17/2022 10:27 AM SKIN LAP BONDER Sexual Orientation Straight 07/17/2022 10 :27 AM SKIN LAP BONDER documented as of this encounter Plan of Treatment Upcoming Encounters Date Type Department Care Team (Late st Contact Info) Description 07/25/2024 10:00 AM SKIN LAP BONDER Office Visit [facility] Family & Internal Medicine - [place] [address] [place] [phone] Keyonna Armstrong APNP [address] [place] [address] 07/31/2024 10:15 AM SKIN LAP BONDER Office Visit [facility], [place] [address] [place] [address] Pepe Mitchell MD Three [facility]. [place] [address] [place] [address] documented as of this encounter Visit Diagnoses Not on filedocumented in this encounter Care Teams Psychiatric Therapist Relationship Specialty Start Date End Date Royer Hidalgo MD PCP - General 04/25/16 09/14/16 Royer Hidalgo MD PCP - General 05/14/15 04/24/16 documented as of this encounter
--- OUTSIDE RECORDS SUMMARY | 2024-07-11 00:21 | XMS_ITS | Encounter Summary ---
Author Organization [facility] Address [address] [place] [address]. [place], [place] [address] [place] [address] Care Team Providers Care Early Intervention School Psychologist Name Role Phone Unavailable Primary Care Provider Unavailabl e Encounter Details Date Type Department Care Team (Latest Contact Info) Description 05/22/2017 Abstract [facility] Social History Tobacco Use Types Packs/Day Years Used Date Smoking Tobacco: Never Assessed Comments Unknown Sex and Gender Information Value Date Recorded Sex Assigned at Not on file Legal Sex Female 5:47 PM CDT Gender Identity Female 07/17/2022 10:27 AM SENIOR LOSS CONTROL SPECIALIST Sexual Orientation Straight 07/17/2022 10 :27 AM SENIOR LOSS CONTROL SPECIALIST documented as of this encounter Plan of Treatment Upcoming Encounters Date Type Department Care Team (Late st Contact Info) Description 07/25/2024 10:00 AM SENIOR LOSS CONTROL SPECIALIST Office Visit [facility] Family & Internal Medicine - [place] [address] [place] [address] Keyonna Armstrong APNP [address] [place] [address] 07/31/2024 10:15 AM SENIOR LOSS CONTROL SPECIALIST Office Visit [facility] THREE [facility], [facility] [address] [place], [place] [phone] Pepe Mitchell MD [facility]. [facility] [address] [place], [place] [phone] documented as of this encounter Visit Diagnoses Not on filedocumented in this encounter
--- OUTSIDE RECORDS SUMMARY | 2024-07-11 00:21 | XMS_ITS | Encounter Summary ---
Author Organization [facility] Address [address] [place] [address]. [place], [place] [address] [place] [address] Care Team Providers Care Gamewell Operator Name Role Phone Unavailable Primary Care Provider Unavailabl e Encounter Details Date Type Department Care Team (Latest Contact Info) Description 10/19/2016 Abstract [facility] Social History Tobacco Use Types Packs/Day Years Used Date Smoking Tobacco: Never Assessed Comments Unknown Sex and Gender Information Value Date Recorded Sex Assigned at Not on file Legal Sex Female 5:47 PM CDT Gender Identity Female 07/17/2022 10:27 AM WEB CONTENT WRITER Sexual Orientation Straight 07/17/2022 10 :27 AM WEB CONTENT WRITER documented as of this encounter Plan of Treatment Upcoming Encounters Date Type Department Care Team (Late st Contact Info) Description 07/25/2024 10:00 AM WEB CONTENT WRITER Office Visit [facility] Family & Internal Medicine - [place] [address] [place] [address] Keyonna Armstrong APNP [address] [place] [address] 07/31/2024 10:15 AM WEB CONTENT WRITER Office Visit [facility] THREE [facility] [address] [place], [place] [id number] Pepe Mitchell MD [facility]. [email or web address] [address] [place], [place] [id number] documented as of this encounter Visit Diagnoses Not on filedocumented in this encounter
--- OUTSIDE RECORDS SUMMARY | 2024-07-11 00:21 | XMS_ITS | Encounter Summary ---
Author Organization [facility] Address [address] [place] [address]. [place], [place] [address] [place] [address] Care Team Providers Care Roto Rooter Operator Name Role Phone Unavailable Primary Care Provider Unavailabl e Encounter Details Date Type Department Care Team (Latest Contact Info) Description 01/24/2017 Abstract [facility] Social History Tobacco Use Types Packs/Day Years Used Date Smoking Tobacco: Never Assessed Comments Unknown Sex and Gender Information Value Date Recorded Sex Assigned at Not on file Legal Sex Female 5:47 PM CDT Gender Identity Female 07/17/2022 10:27 AM BUILDING RENTAL MANAGER Sexual Orientation Straight 07/17/2022 10 :27 AM BUILDING RENTAL MANAGER documented as of this encounter Progress Notes * Royer Hidalgo MD - 01/24/2017 4:04 PM CDT Message Message: Pharmacy calling stating that they never received Rx. Called in Rx. and notified pt. Signatures Electronically signed by : Royer Hidalgo M.D.; Jan 24 2017 4:20PM BUILDING RENTAL MANAGER (Author) documented in this encounter Plan of Treatment Upcoming Encounters Date Type Department Care Team (Late st Contact Info) Description 07/25/2024 10:00 AM BUILDING RENTAL MANAGER Office Visit [facility] Family & Internal Medicine - [address] [address] Keyonna Armstrong APNP [address] [place] [address] 07/31/2024 10:15 AM BUILDING RENTAL MANAGER Office Visit [facility], [facility] [address] [place] [phone] Pepe Mitchell MD [facility]. [facility] [address] [place] [address] documented as of this encounter Visit Diagnoses Not on filedocumented in this encounter
--- OUTSIDE RECORDS SUMMARY | 2024-07-11 00:21 | XMS_ITS | Encounter Summary ---
Author Organization [facility] Address [address] [place] [address]. [place], [place] [phone] [place] [address] Care Team Providers Care Security Coordinator Name Role Phone Royer Hidalgo MD Primary Care Provider [phone] Royer Hidalgo MD Primary Care Provider [phone] Encounter Details Date Type Department Care Team (Latest Contact Info) Description 09/15/2015 Abstract [facility] Social History Tobacco Use Types Packs/Day Years Used Date Smoking Tobacco: Never Assessed Comments Unknown Sex and Gender Information Value Date Recorded Sex Assigned at Not on file Legal Sex Female 5:47 PM CDT Gender Identity Female 07/17/2022 10:27 AM PACKAGE LINE OPERATOR Sexual Orientation Straight 07/17/2022 10 :27 AM PACKAGE LINE OPERATOR documented as of this encounter Plan of Treatment Upcoming Encounters Date Type Department Care Team (Late st Contact Info) Description 07/25/2024 10:00 AM PACKAGE LINE OPERATOR Office Visit [facility] Family & Internal Medicine - [place] [address] [place] [address] Keyonna Armstrong APNP [address] [place] [address] 07/31/2024 10:15 AM PACKAGE LINE OPERATOR Office Visit [facility] THREE [facility] [address] [place] [address] Pepe Mitchell MD [facility]. [facility] [address] [place], [place] [address] documented as of this encounter Visit Diagnoses Not on filedocumented in this encounter Care Teams Security Coordinator Relationship Specialty Start Date End Date Royer Hidalgo MD PCP - General 04/25/16 09/14/16 Royer Hidalgo MD PCP - General 05/14/15 04/24/16 documented as of this encounter
--- OUTSIDE RECORDS SUMMARY | 2024-07-11 00:21 | XMS_ITS | Encounter Summary ---
Author Organization [facility] Address [address] [place] [address]. [place], [place] [phone] [place] [address] Care Team Providers Care Golf Sales Associate Name Role Phone Royer Hidalgo MD Primary Care Provider [phone] Encounter Details Date Type Department Care Team (Latest Contact Info) Description 04/26/2016 Abstract [facility] Social History Tobacco Use Types Packs/Day Years Used Date Smoking Tobacco: Never Assessed Comments Unknown Sex and Gender Information Value Date Recorded Sex Assigned at Not on file Legal Sex Female 5:47 PM CDT Gender Identity Female 07/17/2022 10:27 AM LOSS CONTROL REPRESENTATIVE Sexual Orientation Straight 07/17/2022 10 :27 AM LOSS CONTROL REPRESENTATIVE documented as of this encounter Progress [...] st Contact Info) Description 07/25/2024 10:00 AM LOSS CONTROL REPRESENTATIVE Office Visit [facility] Family & Internal Medicine - [place] [address] [place] [address] Keyonna Armstrong APNP [address] [place] [address] 07/31/2024 10:15 AM LOSS CONTROL REPRESENTATIVE Office Visit [facility] THREE [facility], [facility] [address] [place], [place] [address] Pepe Mitchell MD Three [facility]. [facility] [address] [place], [place] [phone] documented as of this encounter Visit Diagnoses Not on filedocumented in this encounter Care Teams Golf Sales Associate Relationship Specialty Start Date End Date Royer Hidalgo MD PCP - General 04/25/16 09/14/16 documented as of this encounter
--- OUTSIDE RECORDS SUMMARY | 2024-07-11 00:21 | XMS_ITS | Encounter Summary ---
Author Organization [facility] Address [address] [place] [address]. [place], [place] [address] [place] [address] Care Team Providers Care Warranty Administrator Name Role Phone Unavailable Primary Care Provider Unavailabl e Encounter Details Date Type Department Care Team (Late st Contact Info) Description 05/08/2017 Abstract [facility] Family Medicine - [address] [address] Royer Hidalgo MD [address] [place] [address] Social History Tobacco Use Types Packs/Day Years Used Date Smoking Tobacco: Never Assessed Comments Unknown Sex and Gender Information Value Date Recorded Sex Assigned at Not on file Legal Sex Female 5:47 PM CDT Gender Identity Female 07/17/2022 10:27 AM FINAL INSTALLER INSPECTOR Sexual Orientation Straight 07/17/2022 10 :27 AM FINAL INSTALLER INSPECTOR documented as of this encounter Last [...] 9:00 AM CDT Reason For Visit Health Candles Pourer Complaint 46 year old female here for [...] BY MOUTH TWICE A DAY NEEDED; Therapy: 38Fdj9754 to (Evaluate:15Hbf9900) Requested for: 09Jan2017; Last Rx:09Jan2017 Ordered 2. Enpresse-28 Oral Tablet; TAKE 1 TABLET BY MOUTH EVERY DAY; Therapy: 30May2012 to (Evaluate:23Jul2017) Requested for: 85Ypn0459; Last Rx:33Thg5241 Ordered 3. HydroCHLOROthiazide 25 MG Oral Tablet; TAKE ONE TABLET BY MOUTH EVERY DAY; Therapy: 20May2012 to (Evaluate:50Rfx6239) Requested for: 60Ded7687; Last Rx:68Lbb8755 Ordered 4. Ibuprofen 800 MG Oral Tablet; TAKE 1 TABLET 3 TIMES DAILY WITH FOOD NEEDED for pain; Therapy: 11Aug2014 to (Evaluate:12May2016) Requested for: 34Per0171; Last Rx:95Apy6625 Ordered 5. LORazepam 0.5 MG Oral Tablet; TAKE 1 TABLET BY MOUTH 3 TIMES A DAY NEEDED; Therapy: 12Wrj7358 to (Evaluate:25May2017) Requested for: 25Apr2017; Last Rx:38Tzx9723 Ordered 6. MetFORMIN HCl - 500 MG Oral Tablet; TAKE 1 TABLET EVERY MORNING AND THEN TAKE 2 TABLETS AT BEDTIME; Therapy: 24Dec2011 to (Evaluate:05Uah8135) Requested for: 72Pad4947; Last Rx:69Bqh8017 Ordered 7. Methocarbamol 750 MG Oral Tablet; TAKE 1 TO 2 TABLETS 3 TIMES DAILY NEEDED FOR MUSCLE SPASM; Therapy: 11Aug2014 to (Evaluate:83Qgs7587) Requested for: 56Xrl1671; Last Rx:16Qvz9288 Ordered 8. Ondansetron 4 MG Oral Tablet [...] JUICE, OR TEA AND DRINK DAILY; Therapy: 06Hin2509 to (Evaluate:24Oct2017) Requested for: 27Apr2017; Last Rx:88Dbd7700 Ordered 11. Tolterodine Tartrate ER 2 MG Oral Capsule Extended Release 24 Hour; TAKE ONE CAPSULE BY MOUTH EVERY DAY; Therapy: 12Iqb9695 to (Evaluate:69Ukq0824) Requested for: 23Auk8284; Last Rx:08Dau4718 Ordered 12. Venlafaxine HCl ER 75 MG Oral Capsule Extended Release 24 Hour; TAKE ONE CAPSULE BY MOUTH EVERY MORNING AND TAKE 2 CAPSULES BY MOUTH EVERY EVENING; Therapy: 13May2012 to (Evaluate:44Axv5820) Requested for: 12Mzq6686; Last Rx:56Nwz7064 Ordered 13. Vitamin D3 1000 UNIT Oral Tablet; Therapy: (Recorded:23Sep2013) to Recorded 14. Zolpidem Tartrate 10 MG Oral Tablet; TAKE 1 TABLET AT BEDTIME NEEDED FOR INSOMNIA; Therapy: 87Npa0954 to (Evaluate:42Ula8166); Last Rx:23Fnl8786 Ordered Allergies 1. No Known Drug Allergies [...] Need Information - Financial Authorization Requested for: [id number] Spry MONITOR CAR OPERATOR- Please schedule with Dr. Srteet Unlinked 9. Vitamin D3 1000 UNIT Oral Tablet Discussion/Summary MEDICARE WELLNESS EXAM - Med list reconciled. - Problem list updated. - Medicare wellness form reviewed. - Pap/Mammo: Per MONITOR CAR OPERATOR. Ot to schedule [employer] KAILEY. - Colon [...] Royer Hidalgo M.D.; May 08 2017 9:40AM FINAL INSTALLER INSPECTOR (Author) documented in this encounter Plan of Treatment Upcoming Encounters Date Type Department Care Team (Late st Contact Info) Description 07/25/2024 10:00 AM FINAL INSTALLER INSPECTOR Office Visit [facility] Family & Internal Medicine - [address] [address] Keyonna Armstrong APNP [address] [place] [address] 07/31/2024 10:15 AM FINAL INSTALLER INSPECTOR Office Visit [facility], [facility] [address] [place] [address] Pepe Mitchell MD Three [facility]. [facility] [address] [place] [address] documented as of this encounter Visit Diagnoses Not on filedocumented in this encounter
--- OUTSIDE RECORDS SUMMARY | 2024-07-11 00:21 | XMS_ITS | Encounter Summary ---
Author Organization [facility] Address [address] [place] [address]. [place], [place] [address] [place] [address] Care Team Providers Care Residential Solar Sales Consultant Name Role Phone Royer Hidalgo MD Primary Care Provider [phone] Encounter Details Date Type Department Care Team (Late st Contact Info) Description 04/25/2016 Abstract [facility] Family Medicine - [address] [address] Royer Hidalgo MD [address] [facility] [place] [address] Social History Tobacco Use Types Packs/Day Years Used Date Smoking Tobacco: Never Assessed Comments Unknown Sex and Gender Information Value Date Recorded Sex Assigned at Not on file Legal Sex Female 5:47 PM CDT Gender Identity Female 07/17/2022 10:27 AM BUGGY LADLE TENDER Sexual Orientation Straight 07/17/2022 10 :27 AM BUGGY LADLE TENDER documented as of this encounter Last [...] effects. No refills needed. Duefor labs. Has [employer] for well woman care. Review of Systems [...] NEEDED; Therapy: 08Apr2012 to (Evaluate:29Jul2016) Requested for: 67Imc3859; Last Rx:08Fzb5447 Ordered 2. Enpresse-28 Oral Tablet; TAKE 1 TABLET BY MOUTH EVERY DAY; Therapy: 30May2012 to (Evaluate:05May2016) Requested for: 41Xtr2807; Last Rx:38Est8263 Ordered 3. HydroCHLOROthiazide 25 MG Oral Tablet; TAKE ONE TABLET BY MOUTH EVERY DAY; Therapy: 20May2012 to (Evaluate:80Kqy6955) Requested for: 57Hnr3745; Last Rx:03Xmk6701 Ordered 4. Ibuprofen 800 MG Oral Tablet; TAKE 1 TABLET 3 TIMES DAILY WITH FOOD NEEDED for pain; Therapy: 11Aug2014 to (Evaluate:84Yms8132) Requested for: 80Zmi6650; Last Rx:04Tqv0462 Ordered 5. LORazepam 0.5 MG Oral Tablet; TAKE 1 TABLET BY MOUTH 3 TIMES A DAY NEEDED; Therapy: 88Izx2699 to (Evaluate:50Ryz5590) Requested for: 93Bce6817; Last Rx:34Fgp4908 Ordered 6. MetFORMIN HCl ER 500 MG Oral Tablet Extended Release 24 Hour; TAKE 3 TABLETS EVERY MORNING WITH BREAKFAST; Therapy: 17Gpt4276 to (Last Rx:52Ssp1478) Ordered 7. Methocarbamol 750 MG Oral Tablet; TAKE 1 TO 2 TABLETS 3 TIMES DAILY NEEDED FOR MUSCLE SPASM; Therapy: 11Aug2014 to (Evaluate:05Gih3584) Requested for: 02Emw2667; Last Rx:81Qqn1633 Ordered 8. Pantoprazole Sodium 40 MG Oral Tablet Delayed Release; TAKE ONE TABLET BY MOUTH EVERY DAY; Therapy: 08Jun2012 to (Evaluate:68Jvp4724) Requested for: 35Gos1580; Last Rx:52Qcw0233 Ordered 9. Polyethylene Glycol 3350 Oral Powder; MIX 1 CAPFUL (17GM) IN 8 OUNCES OF WATER, JUICE, OR TEA AND DRINK DAILY; Therapy: 04Gtq9549 to (Evaluate:31Jul2016) Requested for: 06Aug2015; Last Rx:56Zlm5637 Ordered 10. Venlafaxine HCl ER 75 MG Oral Capsule Extended Release 24 Hour; TAKE 3 CAPSULES ONCE A DAY; Therapy: 13May2012 to (Evaluate:22Apr2016) Requested for: 34Dzo9321; Last Rx:31Rnp8948 Ordered 11. Vitamin D3 1000 UNIT Oral Tablet; Therapy: (Recorded:23Sep2013) to Recorded 12. Zolpidem Tartrate 10 MG Oral Tablet; TAKE 1 TABLET BY MOUTH AT BEDTIME NEEDED FOR SLEEP; Therapy: 96Mhz7888 to (Evaluate:04Oct2016) Requested for: 60Fvj9773; Last Rx:37Teu0026 Ordered Allergies 1. No Known Drug Allergies [...] Status:Hold For - Manual Activation; Requested for:25Apr2016; Perform:[facility]; Due:25May2016; Last Updated By:Jeni Huber; 04/25/2016 12:03:36 PM;Ordered; For:Diabetic peripheral neuropathy, Hypertension, Impaired fasting glucose, Insomnia; Ordered By:Royer Hidalgo; Health Maintenance, Hypertension, Impaired fasting glucose, Morbid obesity 2. *A1C In Office; Status:Active; Requested for:25Apr2016; Perform:In Office; Due:25May2016;Ordered; For:Health Maintenance, Hypertension, Impaired fasting glucose, Morbid obesity; Ordered By:Royer Hidalgo; 3. CBC W Differential; Status:Hold For - Manual Activation; Requested for:25Apr2016; Perform:[facility]; Due:25May2016;Ordered; For:Health Maintenance, Hypertension,Impaired fasting glucose, Morbid obesity; Ordered By:Royer Hidalgo; 4. Compr Metabolic Prof ( CMP ); Status:Hold For - Manual Activation; Requested for:25Apr2016; Perform:[facility]; Due:25May2016;Ordered; For:Health Maintenance, Hypertension,Impaired fasting glucose, Morbid obesity; Ordered By:Royer Hidalgo; 5. Lipid Profile; Status:Hold For - Manual Activation; Requested for:25Apr2016; Perform:[facility]; Due:25May2016;Ordered; For:Health Maintenance, Hypertension,Impaired fasting glucose, Morbid obesity; Ordered By:Royer Hidalgo; 6. TSH W Reflex Free T4; Status:Hold For - Manual Activation; Requested for:25Apr2016; Perform:[facility]; Due:25May2016;Ordered; For:Health Maintenance, Hypertension,Impaired fasting glucose, Morbid obesity; Ordered By:Royer Hidalgo; Urinary symptom or sign 7. *Urine dip auto In Office; Status:Hold For - Specimen/Data Collection; Requested for:25Apr2016; Perform:In Office; Due:25May2016;Ordered; For:Urinary symptom or sign; Ordered By:Royer Hidalgo; Discussion/Summary Medication list reviewed/reconciled. Labs drawn. Flu shot and Tdap given. Pap/mammo per [employer]. Chronic conditions stable, no changes to meds. Check UA due to urinary sx. F/U in 6 mos, sooner if needed. Signatures Electronically signed by : Royer Hidalgo M.D.; Apr 25 2016 1:07PM BUGGY LADLE TENDER (Author) documented in this encounter Plan of Treatment Upcoming Encounters Date Type Department Care Team (Late st Contact Info) Description 07/25/2024 10:00 AM BUGGY LADLE TENDER Office Visit [facility] Family & Internal Medicine - [place] [address] [place] [address] Keyonna Armstrong APNP [address] [place] [address] 07/31/2024 10:15 AM BUGGY LADLE TENDER Office Visit [facility] THREE [facility] [place] [address] [place], [place] [phone] Pepe Mitchell MD Three [facility]. [place] [address] [place], [place] [id number] documented as of this encounter Procedures Procedure [...] EPIC CONVERSION - 04/25/2016 10:36 PM CDT [id number] 5:49AM by Royer Hidalgo: ??Hi Veronica, Here [...] EPIC CONVERSION - 04/25/2016 9:56 PM CDT [id number] 5:49AM by Royer Hidalgo: ??Hi Veronica, Here [...] MD LABORATORY Final Result Performing Organization Address [facility] de Phone Number [facility] TO EPIC [...] EPIC CONVERSION - 04/25/2016 10:10 PM CDT [id number] 5:49AM by Royer Hidalgo: ??Hi Veronica, Here [...] MD LABORATORY Final Result Performing Organization Address [facility] de Phone Number [facility] TO EPIC CONVERSION documented in this encounter Visit Diagnoses Not on filedocumented in this encounter Care Teams Residential Solar Sales Consultant Relationship Specialty Start Date End Date Royer Hidalgo MD PCP - General 04/25/16 09/14/16 documented as of this encounter
--- OUTSIDE RECORDS SUMMARY | 2024-07-11 00:21 | XMS_ITS | Encounter Summary ---
Author Organization [facility] Address [address] [place] [address]. [place], [place] [address] [place] [address] Care Team Providers Care Events Administrative Assistant Name Role Phone Royer Hidalgo MD Primary Care Provider [phone] Royer Hidalgo MD Primary Care Provider [phone] Encounter Details Date Type Department Care Team (Latest Contact Info) Description 09/17/2015 Abstract [facility] Social History Tobacco Use Types Packs/Day Years Used Date Smoking Tobacco: Never Assessed Comments Unknown Sex and Gender Information Value Date Recorded Sex Assigned at Not on file Legal Sex Female 5:47 PM CDT Gender Identity Female 07/17/2022 10:27 AM ROLL COATING MACHINE OPERATOR Sexual Orientation Straight 07/17/2022 10 :27 AM ROLL COATING MACHINE OPERATOR documented as of this encounter Miscellaneous Notes [...] any questions, please contact the office at [phone]. Sincerely, Your Healthcare Team at [facility] Electronically signed by:Ata Adkins Sep 17 2015 8:16AM ROLL COATING MACHINE OPERATOR Author documented in this encounter Plan of Treatment Upcoming Encounters Date Type Department Care Team (Late Contact Info) Description 07/25/2024 10:00 AM ROLL COATING MACHINE OPERATOR Office Visit [facility] Family & Internal Medicine - [place] [address] [place] [address] Keyonna Armstrong APNP [address] [place] [address] 07/31/2024 10:15 AM ROLL COATING MACHINE OPERATOR Office Visit [facility] [address] [place] [address] Pepe Mitchell MD Three [facility]. [facility] [address] [place], [place] [id number] documented as of this encounter Visit Diagnoses Not on filedocumented in this encounter Care Teams Events Administrative Assistant Relationship Specialty Start Date End Date Royer Hidalgo MD PCP - General 04/25/16 09/14/16 Royer Hidalgo MD PCP - General 05/14/15 04/24/16 documented as of this encounter
--- OUTSIDE RECORDS SUMMARY | 2024-07-11 00:21 | XMS_ITS | Encounter Summary ---
Author Organization [facility] Address [address] [place] [address]. [place], [place] [address] [place] [address] Care Team Providers Care Net Maker Name Role Phone Royer Hidalgo MD Primary Care Provider [phone] Royer Hidalgo MD Primary Care Provider [phone] Encounter Details Date Type Department Care Team (Late st Contact Info) Description 10/25/2015 Abstract [facility] Family Medicine - [address] [address] Royer Hidalgo MD [address] [facility] [place] [address] Social History Tobacco Use Types Packs/Day Years Used Date Smoking Tobacco: Never Assessed Comments Unknown Sex and Gender Information Value Date Recorded Sex Assigned at Not on file Legal Sex Female 5:47 PM CDT Gender Identity Female 07/17/2022 10:27 AM SOFTWARE VALIDATION TECHNICIAN Sexual Orientation Straight 07/17/2022 10 :27 AM SOFTWARE VALIDATION TECHNICIAN documented as of this encounter Last Filed [...] BY MOUTH TWICE A DAY NEEDED; Therapy: 10Sxm7001 to (Evaluate:49Mod7706) Requested for: 09Aug2015; Last Rx:09Aug2015 Ordered 2. CPAP; USE CPAP MACHINE DIRECTED; Therapy: 85Qdi3725 to (Last Rx:77Vyc4018) Ordered 3. Enpresse-28 Oral Tablet; TAKE 1 TABLET BY MOUTH EVERY DAY; Therapy: 30May2012 to (Evaluate:75Egz8642) Requested for: 46Qge5424; Last Rx:54Aen5937 Ordered 4. Hydrochlorothiazide 25 MG Oral Tablet; TAKE ONE TABLET BY MOUTH EVERY DAY; Therapy: 20May2012 to (Evaluate:92Wll4048) Requested for: 91Urs9166; Last Rx:87Ezz6448 Ordered 5. Ibuprofen 800 MG Oral Tablet; TAKE 1 TABLET 3 TIMES DAILY WITH FOOD NEEDED for pain; Therapy: 11Aug2014 to (Evaluate:25Oyh4716) Requested for: 04Rso4811; Last Rx:11Dlh9910 Ordered 6. LORazepam 0.5 MG Oral Tablet; TAKE 1 TABLET BY MOUTH 3 TIMES A DAY NEEDED; Therapy: 86Xtz6336 to (Evaluate:05Myd6145) Requested for: 08Oct2015; Last Rx:08Oct2015 Ordered 7. MetFORMIN HCl - 500 MG Oral Tablet; TAKE 1 TABLET EVERY MORNING AND THEN TAKE 2 TABLETS AT BEDTIME; Therapy: 24Dec2011 to (Evaluate:08Aug2016) Requested for: 14Aug2015; Last Rx:40Pcd1915 Ordered 8. Methocarbamol 750 MG Oral Tablet; TAKE 1 TO 2 TABLETS 3 TIMES DAILY NEEDED FOR MUSCLE SPASM; Therapy: 11Aug2014 to (Evaluate:46Ojk9396) Requested for: 37Bap0165; Last Rx:95Rpv4723 Ordered 9. Multivitamins TABS; Therapy: (Recorded:23Sep2013) to Recorded 10. Ondansetron 4 MG Oral Tablet Dispersible; DISSOLVE 1-2 TABLETS ON TONGUE EVERY 8 HOURS NEEDED FOR NAUSEA; Therapy: 02Mar2015 to (Evaluate:53Kol5751) Requested for: 07Nqd6244; Last Rx:59Yxu8340 Ordered 11. Pantoprazole Sodium 40 MG Oral Tablet Delayed Release; TAKE ONE TABLET BY MOUTH EVERY DAY; Therapy: 08Jun2012 to (Evaluate:24Dec2015) Requested for: 29Dec2014; Last Rx:29Dec2014 Ordered 12. Polyethylene Glycol 3350 Oral Powder; MIX 1 CAPFUL (17GM) IN 8 OUNCES OF WATER, JUICE, OR TEA AND DRINK DAILY; Therapy: 49Wbh1127 to (Evaluate:31Jul2016) Requested for: 06Aug2015; Last Rx:06Aug2015 [...] MOUTH AT BEDTIME NEEDED FOR SLEEP; Therapy: 14Pir0749 to (Evaluate:36Iae5436) Requested for: 08Oct2015; Last Rx:08Oct2015 Ordered Allergies [...] Health Maintenance; TEX = N; Sent To: [id number] Hypertension, Morbid obesity, Type 2 diabetes mellitus 3. *A1C In Office; Status:Hold For - Exact Date; Requested for:Approx 25Apr2016; Perform:In Office; Due:24Nov2015;Ordered; For:Hypertension, Morbid obesity, Type 2 diabetes mellitus; Ordered By:Royer Hidalgo; 4. CBC W Differential; Status:Hold For - Exact Date,Manual Activation; Requested for:Approx 25Apr2016; Perform:[facility]; Due:24Nov2015;Ordered; For:Hypertension, Morbid obesity, Type 2 diabetes mellitus; Ordered By:Royer Hidalgo; 5. Compr Metabolic Prof ( CMP ); Status:Hold For - Exact Date,Manual Activation; Requested for:Approx 25Apr2016; Perform:[facility]; Due:24Nov2015;Ordered; For:Hypertension, Morbid obesity, Type 2 diabetes mellitus; Ordered By:Royer Hidalgo; 6. Lipid W Reflex DLDL; Status:Hold For - Exact Date,Manual Activation; Requested for:Approx 25Apr2016; Perform:[facility]; Due:24Nov2015;Ordered; For:Hypertension, Morbid obesity, Type 2 diabetes mellitus; Ordered By:Royer Hidalgo; 7. TSH W Reflex Free T4; Status:Hold For - Exact Date,Manual Activation; Requested for:Approx 25Apr2016; Perform:[facility]; Due:41Pub8838;Ordered; For:Hypertension, Morbid obesity, Type 2 diabetes mellitus; Ordered By:Royer Hidalgo; Insomnia 8. Zolpidem Tartrate 10 MG Oral Tablet; TAKE 1 TABLET BY MOUTH AT BEDTIME NEEDED FOR SLEEP Rx By: Royer Hidalgo; Dispense: 30 Days ; #:30 Tablet; Refill: 5; For: Insomnia; TEX = N; Print Rx Called into [facility] - [facility] /tjt Called into [facility] - [facility] /tjt Called into [facility] /tjt Called into [facility] /tjt Called to [facility] per Dr Hidalgo, #30 with 2 refills-MAB Called in #30 to [facility] lunesta not covered /tjt Called into [facility] /tjt Called to [facility] in [facility] Obstructive sleep apnea 9. CPAP Rx By: Royer Hidalgo; Dispense: 0 Days ; #:1; Refill: 0; For: Obstructive sleep apnea; TEX = N; PrintRx; Msg to Pharmacy: CPAP SUPPLIES Type 2 diabetes mellitus 10. MetFORMIN HCl - 500 MG Oral Tablet Rx By: Royer Hidalgo; Dispense: 30 Days ; #:90 TAB; Refill: 11; For: Type 2 diabetes mellitus; TEX = N; Transmitted To: [facility][id number] 11. MetFORMIN HCl ER 500 MG Oral [...] Royer Hidalgo M.D.; Oct 25 2015 12:32PM SOFTWARE VALIDATION TECHNICIAN (Author) documented in this encounter Plan of Treatment Upcoming Encounters Date Type Department Care Team (Late st Contact Info) Description 07/25/2024 10:00 AM SOFTWARE VALIDATION TECHNICIAN Office Visit [facility] Family & Internal Medicine - [address] [address] Keyonna Armstrong APNP [address] [place] [address] 07/31/2024 10:15 AM SOFTWARE VALIDATION TECHNICIAN Office Visit [facility] THREE [facility] [address] [place] [address] Pepe Mitchell MD Three [facility]. [facility] [address] [place] [address] documented as of this encounter Visit Diagnoses Not on filedocumented in this encounter Care Teams Net Maker Relationship Specialty Start Date End Date Royer Hidalgo MD PCP - General 04/25/16 09/14/16 Royer Hidalgo MD PCP - General 05/14/15 04/24/16 documented as of this encounter
--- OUTSIDE RECORDS SUMMARY | 2024-07-11 00:21 | XMS_ITS | Encounter Summary ---
Author Organization [facility] Address [address] [place] [address]. [place], [place] [address] [place] [address] Care Team Providers Care Emergency Generator Mechanic Name Role Phone Royer Hidalgo MD Primary Care Provider [phone] Royer Hidalgo MD Primary Care Provider [phone] Encounter Details Date Type Department Care Team (Latest Contact Info) Description 05/27/2015 Abstract [facility] Group Social History Tobacco Use Types Packs/Day Years Used Date Smoking Tobacco: Never Assessed Comments Unknown Sex and Gender Information Value Date Recorded Sex Assigned at Not on file Legal Sex Female 5:47 PM CDT Gender Identity Female 07/17/2022 10:27 AM HAND RUG BRAIDER Sexual Orientation Straight 07/17/2022 10 :27 AM HAND RUG BRAIDER documented as of this encounter Plan of Treatment Upcoming Encounters Date Type Department Care Team (Late st Contact Info) Description 07/25/2024 10:00 AM HAND RUG BRAIDER Office Visit [facility] Family & Internal Medicine - [place] [address] [place] [address] Keyonna Armstrong APNP [address] [place] [address] 07/31/2024 10:15 AM HAND RUG BRAIDER Office Visit [facility] THREE [facility] [address] [place] [address] Pepe Mitchell MD [facility]. [facility] [address] [place], [place] [address] documented as of this encounter Visit Diagnoses Not on filedocumented in this encounter Care Teams Emergency Generator Mechanic Relationship Specialty Start Date End Date Royer Hidalgo MD PCP - General 04/25/16 09/14/16 Royer Hidalgo MD PCP - General 05/14/15 04/24/16 documented as of this encounter
--- OUTSIDE RECORDS SUMMARY | 2024-07-11 00:21 | XMS_ITS | Encounter Summary ---
Author Organization [facility] Address [address] [place] [address]. [place], [place] [address] [place] [address] Care Team Providers Care Baggage Smasher Name Role Phone Royer Hidalgo MD Primary Care Provider [phone] Royer Hidalgo MD Primary Care Provider [phone] Encounter Details Date Type Department Care Team (Late st Contact Info) Description 05/14/2015 Abstract [facility] Family Medicine - [address] [address] Royer Hidalgo MD [address] [facility] [place] [address] Social History Tobacco Use Types Packs/Day Years Used Date Smoking Tobacco: Never Assessed Comments Unknown Sex and Gender Information Value Date Recorded Sex Assigned at Not on file Legal Sex Female 5:47 PM CDT Gender Identity Female 07/17/2022 10:27 AM CARGO STATION WORKER Sexual Orientation Straight 07/17/2022 10 :27 AM CARGO STATION WORKER documented as of this encounter Last [...] BY MOUTH TWICE A DAY NEEDED; Therapy: 29Hcg5723 to (Evaluate:09Jun2015) Requested for: 11Tha7376; Last Rx:[id number] Ordered Rx By: Royer Hidalgo; Dispense: 90 Days ; #:180 TAB; Refill: 1; For: Hypertension; TEX = N; [facility]; Last Updated By: PeriphaGen; 12/11/2014 1:12:41 PM 2. Enpresse-28 Oral Tablet; TAKE 1 TABLET BY MOUTH EVERY DAY; Therapy: 30May2012 to (Evaluate:08Jun2015) Requested for: 56Pgn7517; Last Rx:[id number] Ordered Rx By: Royer Hidalgo; Dispense: 28 Days ; #:28 TAB; Refill: 2; For: Health Maintenance; TEX = N; [facility]; Last Updated By: PeriphaGen; 03/16/2015 7:36:35 AM 3. Hydrochlorothiazide 25 MG Oral Tablet; TAKE ONE TABLET BY MOUTH EVERY DAY; Therapy: 20May2012 to (Evaluate:76Cwu7788) Requested for: 28Dec2014; Last Rx:28Dec2014 Ordered Rx By: Royer Hidalgo; Dispense: 90 Days ; #:90 TAB; Refill: 1; For: Hypertension; TEX = N; [facility]; Last Updated By: PeriphaGen; 12/28/2014 9:15:19 AM 4. Ibuprofen 800 MG Oral Tablet; TAKE 1 TABLET 3 TIMES DAILY WITH FOOD NEEDED for pain; Therapy: 11Aug2014 to (Evaluate:10Oct2014) Requested for: 11Aug2014; Last Rx:[id number] Ordered Rx By: Royer Hidalgo; Dispense: 10 Days ; #:30 Tablet; Refill: 5; For: Right knee pain; TEX = N; Verified Transmission to [facility] #2510; Last Updated By: PeriphaGen; 08/11/2014 3:34:30 PM 5. LORazepam 0.5 MG Oral Tablet; TAKE 1 TABLET BY MOUTH 3 TIMES A DAY NEEDED; Therapy: 11Jgb8474 to (Evaluate:16May2015) Requested for: 13May2015; Last Rx:[id number]; Status: ACTIVE - Renewal Denied Ordered Rx By: Royer Hidalgo; Dispense: 30 Days ; #:90 Tablet; Refill: 0; For: Anxiety, Insomnia; TEX = N; Record; Last Updated By: PeriphaGen; 05/14/2015 1:31:42 PM 6. MetFORMIN HCl - 500 MG Oral Tablet; TAKE 1 TABLET EVERY MORNING AND THEN TAKE 2 TABLETS AT BEDTIME; Therapy: 24Dec2011 to (Evaluate:84Sqo9619) Requested for: 01Mar2015; Last Rx:01Mar2015 Ordered Rx By: Royer Hidalgo; Dispense: 30 Days ; #:90 TAB; Refill: 5; For: Type 2 diabetes mellitus; TEX = N; Verified Transmission to [facility] #2510; Last Updated By: PeriphaGen; 03/01/2015 1:00:31 PM 7. MetFORMIN HCl ER 500 MG Oral Tablet Extended Release 24 Hour; TAKE 3 TABLETS EVERY MORNING WITH BREAKFAST; Therapy: 89Bjt3805 to (Last Rx:[id number]) Ordered Rx By: Roeyr Hidalgo; Dispense: 0 Days ; #:90 Tablet [...] pain; TEX = N; Verified Transmission to [facility] #2510; Last Updated By: PeriphaGen; 05/13/2015 9:41:47 AM 9. Multivitamins TABS; Therapy: (Recorded:23Sep2013) to Recorded Dispense: 0 Days ; #: Sufficient TABS; Refill: 0; TEX = N; Record; Last Updated By: Marcella Gant; 09/23/2013 10:26:01 AM 10. Ondansetron 4 MG Oral Tablet Dispersible; DISSOLVE 1-2 TABLET UNDER TONGUE EVERY 8 HOURS NEEDED FOR NAUSEA; Therapy: 02Mar2015 to (Evaluate:26Zcq4270) Requested for: 02Mar2015; Last Rx:02Mar2015 Ordered Rx By: Royer Hidalgo; Dispense: 30 Days ; #:15 Tablet Dispersible; Refill: 0; For: Health Maintenance; TEX = N; Faxed To: [facility] #2510; Last Updated By: PeriphaGen; 03/02/2015 2:45:00 PM 11. Pantoprazole Sodium 40 MG Oral Tablet Delayed Release; TAKE ONE TABLET BY MOUTH EVERY DAY; Therapy: 08Jun2012 to (Evaluate:24Dec2015) Requested for: 29Dec2014; Last Rx:29Dec2014 Ordered Rx By: Royer Hidalgo; Dispense: 30 Days ; #:30 TAB; Refill: 11; For: Esophageal reflux; TEX = N; Verified Transmission to [facility] #2510; Last Updated By: PeriphaGen; 12/29/2014 7:40:50 AM 12. Polyethylene Glycol 3350 Oral Powder; MIX 1 CAPFUL (17GM) IN 8 OUNCES OF WATER, JUICE, OR TEA AND DRINK DAILY; Therapy: 83Fhm3722 to (Evaluate:94Bde7795) Requested for: 79Rmi0194; Last Rx:[id number] Ordered Rx By: Royer Hidalgo; Dispense: 90 Days ; #:3 X 527 GM Bottle; Refill: 3; For: Constipation; TEX = N;Verified Transmission to [facility] #2510; Last Updated By: PeriphaGen; 07/03/2014 12:05:53 PM 13. Venlafaxine HCl ER 75 MG Oral Capsule Extended Release 24 Hour; TAKE ONE CAPSULE BY MOUTH EVERY MORNING AND TAKE 2 CAPSULES BY MOUTH EVERY EVENING; Therapy: 13May2012 to (Evaluate:43Wto3198) Requested for: 01Mar2015; Last Rx:01Mar2015 Ordered Rx By: Royer Hidalgo; Dispense: 30 Days ; #:90 Capsule; Refill: 5; For: Depression; TEX = N; VerifiedTransmission to [facility] #2510; Last Updated By: PeriphaGen; 03/01/2015 1:00:32 PM 14. Vitamin D3 1000 UNIT Oral Tablet; Therapy: (Recorded:23Sep2013) to Recorded Dispense: 0 Days ; #: Sufficient TABS; Refill: 0; TEX = N; Record; Last Updated By: Marcella Gant; 09/23/2013 10:26:01 AM 15. Zolpidem Tartrate 10 MG Oral Tablet; TAKE 1 TABLET BY MOUTH AT BEDTIME NEEDED FOR SLEEP; Therapy: 18Dec2014 to (Evaluate:18May2015) Requested for: 13May2015; Last Rx:[id number]; Status: ACTIVE - Renewal Denied Ordered Rx By: Royer Hidalgo; Dispense: 30 Days ; #:30 TAB; Refill: 2; For: Insomnia; TEX = N; Print Rx; LastUpdated By: PeriphaGen; 05/14/2015 1:31:42 PM Allergies 1. No Known [...] XY Sacrum Coccyx 2+ View [place] (Report) [facility] [address] [address] Name: Veronica Evangelista Ordering MD: Royer Hidalgo Order Number: [id number] : [id number] Sex: F Performing Location: [facility] Procedure Code: Procedure: XY Sacrum Coccyx 2+ [...] Anupama Maddox; 05/14/2015 1:31:42 PM Called into [facility] [place] - LM /tjt Called into [facility] - LM /tjt Called into [facility] - LM - gets #90 every 30 days /tjt Called into [facility] - LM /tjt Called into [facility] [place] - LM /[facility] Called in to [facility] - LM /tjt Called in to [facility] - LM /tjt Insomnia 2. Zolpidem Tartrate 10 MG Oral Tablet; TAKE 1 TABLET BY MOUTH AT BEDTIME NEEDED FOR SLEEP Rx By: Royer Hidalgo; Dispense: 30 Days ; #:30 Tablet; Refill: 2; For: Insomnia; TEX = N; Record; Last Updated By: Anupama Maddox; 05/14/2015 1:31:42 PM Called into [facility] - LM /tjt Called to [facility] per Dr Hidalgo, #30 with 2 refills-MAB Called in #30 to [facility] - lunesta not covered /tjt Called into [facility] /tjt Called to [facility] Nausea 3. CBC W Differential; Status:Resulted - Requires Verification; Done: 14May2015 01:30PM Performed:[facility]; Due:13Jun2015;Ordered; For:Nausea; Ordered By:Royer Hidalgo; 4. Compr Metabolic Prof ( CMP ); Status:Resulted - Requires Verification; Done: 14May2015 01:30PM Performed:[facility]; Due:13Jun2015;Ordered; For:Nausea; Ordered By:Royer Hidalgo; Sacral pain 5. MRI SACRUM W/O; Status:Need Information - Financial Authorization; Requested for:14May2015; Perform:[facility] Radiology; Order Comments:44 year old female [...] Royer Hidalgo M.D.; May 14 2015 9:46PM CARGO STATION WORKER (Author) documented in this encounter Plan of Treatment Upcoming Encounters Date Type Department Care Team (Late st Contact Info) Description 07/25/2024 10:00 AM CARGO STATION WORKER Office Visit [facility] Family & Internal Medicine [address] [address] Keyonna Armstrong APNP [address] [place] [address] 07/31/2024 10:15 AM CARGO STATION WORKER Office Visit [facility], [facility] [address] [place], [place] [id number] Pepe Mitchell MD Three [facility]. [facility] [address] [place], [place] [address] documented as of this encounter Procedures Procedure [...] us Royer Hidalgo MD LABORATORY Final Result [employer] TO [employer] documented in this encounter Visit Diagnoses Not on filedocumented in this encounter Care Teams Baggage Smasher Relationship Specialty Start Date End Date Royer Hidalgo MD PCP - General 04/25/16 09/14/16 Royer Hidalgo MD PCP - General 05/14/15 04/24/16 documented as of this encounter
--- OUTSIDE RECORDS SUMMARY | 2024-07-11 00:21 | XMS_ITS | Encounter Summary ---
Author Organization [facility] Address [address] [place] [address]. [place], [place] [address] [place] [address] Care Team Providers Care Hospice Volunteer Coordinator Name Role Phone Royer Hidalgo MD Primary Care Provider [phone] Royer Hidalgo MD Primary Care Provider [phone] Encounter Details Date Type Department Care Team (Latest Contact Info) Description 08/26/2015 Abstract [facility] Social History Tobacco Use Types Packs/Day Years Used Date Smoking Tobacco: Never Assessed Comments Unknown Sex and Gender Information Value Date Recorded Sex Assigned at Not on file Legal Sex Female 5:47 PM CDT Gender Identity Female 07/17/2022 10:27 AM CLOTHES DRIER REPAIRER Sexual Orientation Straight 07/17/2022 10 :27 AM CLOTHES DRIER REPAIRER documented as of this encounter Plan of Treatment Upcoming Encounters Date Type Department Care Team (Late st Contact Info) Description 07/25/2024 10:00 AM CLOTHES DRIER REPAIRER Office Visit [facility] Family & Internal Medicine - [place] [address] [place] [address] Keyonna Armstrong APNP [address] [place] [address] 07/31/2024 10:15 AM CLOTHES DRIER REPAIRER Office Visit [facility], [facility] [address] [place] [address] Pepe Mitchell MD [facility]. [facility] [address] [place], [place] [address] documented as of this encounter Visit Diagnoses Not on filedocumented in this encounter Care Teams Hospice Volunteer Coordinator Relationship Specialty Start Date End Date Royer Hidalgo MD PCP - General 04/25/16 09/14/16 Royer Hidalgo MD PCP - General 05/14/15 04/24/16 documented as of this encounter
--- OUTSIDE RECORDS SUMMARY | 2024-07-11 00:21 | XMS_ITS | Encounter Summary ---
Author Organization [facility] Address [address] [place] [address]. [place], [place] [address] [place] [address] Care Team Providers Care Business Applications Analyst Name Role Phone Unavailable Primary Care Provider Unavailabl e Encounter Details Date Type Department Care Team (Late st Contact Info) Description 09/15/2016 Abstract [facility] Family Medicine [address] [address] Royer Hidalgo MD [address] [facility] [place] [address] Social History Tobacco Use Types Packs/Day Years Used Date Smoking Tobacco: Never Assessed Comments Unknown Sex and Gender Information Value Date Recorded Sex Assigned at Not on file Legal Sex Female 5:47 PM CDT Gender Identity Female 07/17/2022 10:27 AM OFFSHORE WIND OPERATIONS MANAGER Sexual Orientation Straight 07/17/2022 10 :27 AM OFFSHORE WIND OPERATIONS MANAGER documented as of this encounter Last Filed Vital Signs Vital Sign Reading Time Taken Comments Blood Pressure 149/95 09/15/2016 11:22 AM OFFSHORE WIND OPERATIONS MANAGER Pulse 92 09/15/2016 11:22 AM OFFSHORE WIND OPERATIONS MANAGER Temperature - - Respiratory Rate - - Oxygen Saturation - - Inhaled Oxygen Concentration - - Weight 133.7 kg (294 lb 12.8 oz) 2016 11:22 AM OFFSHORE WIND OPERATIONS MANAGER Height 167.6 cm (5' 6) 09/15/2016 11:2 2 AM OFFSHORE WIND OPERATIONS MANAGER Body Mass Index 47.58 09/15/2016 11:22 AM OFFSHORE WIND OPERATIONS MANAGER documented in this encounter Progress Notes * Royer Hidalgo MD - 09/15/2016 11:00 AM CST [...] Series1: 19Jun2012; Series2: 25Apr2016 Tdap --- Series1: [id number] Current Meds 1. Atenolol 50 MG Oral Tablet; TAKE 1 TABLET BY MOUTH TWICE A DAY NEEDED; Therapy: 21Mnp6489 to (Evaluate:14Jan2017) Requested for: 22Ddd0161; Last Rx:[id number] Ordered Rx By: Royer Hidalgo; Dispense: 90 Days ; #:180 TAB; Refill: 1; For: Hypertension; TEX = N; Verified Transmission to [facility] #2510; Last Updated By: Sellaround; 07/18/2016 10:14:22 AM 2. Enpresse-28 Oral Tablet; TAKE 1 TABLET BY MOUTH EVERY DAY; Therapy: 30May2012 to (Evaluate:85Fzo6866) Requested for: 14Aug2016; Last Rx:14Aug2016 Ordered Rx By: Royer Hidalgo; Dispense: 28 Days ; #:28 TAB; Refill: 2; For: Health Maintenance; TEX = N; Verified Transmission to [facility] #2510; Last Updated By: Sellaround; 08/14/2016 8:13:32 AM 3. HydroCHLOROthiazide 25 MG Oral Tablet; TAKE ONE TABLET BY MOUTH EVERY DAY; Therapy: 20May2012 to (Evaluate:13Bkl3226) Requested for: 29May2016; Last Rx:29May2016 Ordered Rx By: Royer Hidalgo; Dispense: 90 Days ; #:90 TAB; Refill: 1; For: Hypertension; TEX = N; Verified Transmission to [facility] #2510; Last Updated By: Sellaround; 05/29/2016 3:53:02 PM 4. Ibuprofen 800 MG Oral Tablet; TAKE 1 TABLET 3 TIMES DAILY WITH FOOD NEEDED for pain; Therapy: 11Aug2014 to (Evaluate:12May2016) Requested for: 70Lrh7734; Last Rx:40Dhd2549 Ordered Rx By: Royer Hidalgo; Dispense: 10 Days ; #:30 TAB; Refill: 5; For: PMH: Diabetic peripheral neuropathy; TEX = N; Verified Transmission to [facility] #2510; Last Updated By: Sellaround; 03/13/2016 12:59:22 PM 5. LORazepam 0.5 MG Oral Tablet; TAKE 1 TABLET BY MOUTH 3 TIMES A DAY NEEDED; Therapy: 01Wcc7914 to (Evaluate:23Oct2016) Requested for: 25Jul2016; Last Rx:25Jul2016 [...] fasting glucose; TEX= N; Verified Transmission to [facility] #2510; Last Updated By: Sellaround; 07/20/2016 9:28:38 AM 7. Methocarbamol 750 MG Oral Tablet; TAKE 1 TO 2 TABLETS 3 TIMES DAILY NEEDED FOR MUSCLE SPASM; Therapy: 11Aug2014 to (Evaluate:03Apr2016) Requested for: 29Mar2016; Last Rx:29Mar2016 Ordered Rx By: Royer Hidalgo; Dispense: 5 Days ; #:30 Tablet; Refill: 0; For: PMH: Acute low back pain, PMH: Right knee pain; TEX = N; Verified Transmission to [facility] #2510; Last Updated By: Sellaround; 03/29/2016 11:43:11 AM 8. Ondansetron 4 MG Oral Tablet Dispersible; DISSOLVE 1-2 TABLETS ON TONGUE EVERY 8 HOURS NEEDED FOR NAUSEA; Therapy: 02Mar2015 to (Evaluate:19Aug2016) Requested for: 14Aug2016; Last Rx:14Aug2016 Ordered Rx By: Royer Hidalgo; Dispense: 0 Days ; #:30 Tablet Dispersible; Refill: 0; For: Health Maintenance;TEX = N; Verified Transmission to [facility] #2510; Msg to Pharmacy: NEEDS APPT BEFORE ANY MORE REFILLS, THANKS; Last Updated By: Sellaround; 08/14/2016 2:36:24 PM 9. Pantoprazole Sodium 40 MG Oral Tablet Delayed Release; TAKE ONE TABLET BY MOUTH EVERY DAY; Therapy: 08Jun2012 to (Evaluate:15Jun2017) Requested for: 20Jun2016; Last Rx:20Jun2016 Ordered Rx By: Royer Hidalgo; Dispense: 90 Days ; #:90 Tablet Delayed Release; Refill: 3; For: Esophageal reflux; TEX = N; Verified Transmission to [facility] #2510; Last Updated By: Sellaround; 06/20/2016 3:19:07 PM 10. Polyethylene Glycol 3350 Oral Powder; MIX 1 CAPFUL (17GM) IN 8 OUNCES OF WATER, JUICE, OR TEA AND DRINK DAILY; Therapy: 03Jul2014 to (Evaluate:31Jul2016) Requested for: 06Aug2015; Last Rx:06Aug2015 Ordered Rx By: Royer Hidalgo; Dispense: 90 Days ; #:1581 GM; Refill: 3; For: Constipation; TEX = N; Verified Transmission to [facility] #2510; Last Updated By: Sellaround; 08/06/2015 5:36:51 AM 11. Venlafaxine HCl ER 75 MG Oral Capsule Extended Release 24 Hour; TAKE ONE CAPSULE BY MOUTH EVERY MORNING AND TAKE 2 CAPSULES BY MOUTH EVERY EVENING; Therapy: 13May2012 to (Evaluate:15Jul2017) Requested for: 20Jul2016; Last Rx:[id number] Ordered Rx By: Royer Hidalgo; Dispense: 90 Days ; #:270 Capsule Extended Release 24 Hour; Refill: 3; For: Depression; TEX = N; Verified Transmission to [facility] #2510; Last Updated By: Sellaround;07/20/2016 9:29:41 AM 12. Vitamin D3 1000 UNIT Oral Tablet; Therapy: (Recorded:23Sep2013) to Recorded Dispense: 0 Days ; #: Sufficient TABS; Refill: 0; TEX = N; Record; Last Updated By: Marcella Gant; 09/23/2013 10:26:01 AM 13. Zolpidem Tartrate ER 12.5 MG Oral Tablet Extended Release; TAKE 1 TABLET AT BEDTIME NEEDED FOR SLEEP; Therapy: 25Jul2016 to (Evaluate:28Uoc2116); Last Rx:25Jul2016 Ordered Rx By: Royer Hidalgo; Dispense: 90 Days ; #:90 Tablet Extended Release; Refill: 1; For: Insomnia; TEX= N; Print Rx Allergies 1. 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 Followup as needed. Signatures Electronically signed by : Royer Hidalgo M.D.; Sep 15 2016 12:30PM OFFSHORE WIND OPERATIONS MANAGER (Author) documented in this encounter Plan of Treatment Upcoming Encounters Date Type Department Care Team (Late st Contact Info) Description 07/25/2024 10:00 AM OFFSHORE WIND OPERATIONS MANAGER Office Visit [facility] Family & Internal Medicine - [address] [address] Keyonna Armstrong APNP [address] [place] [address] 07/31/2024 10:15 AM OFFSHORE WIND OPERATIONS MANAGER Office Visit [facility], [facility] [address] [place], [place] [address] Pepe Mitchell MD [facility]. [facility] [address] [place] [address] documented as of this encounter Procedures Procedure Name Priority Date/Time Associated Diagnosis Comments URINALYSIS WI REFLEX TO CULTURE Routine 09/15/2016 5:48 PM OFFSHORE WIND OPERATIONS MANAGER URINALYSIS AUTO DIP Routine 09/15/2016 1 1:19 AM OFFSHORE WIND OPERATIONS MANAGER documented in this encounter Results * URINALYSIS WI REFLEX TO CULTURE (09/15/2016 5:48 PM OFFSHORE WIND OPERATIONS MANAGER) SPECIMEN TYPE URINE CLEAN CATCH [facility] TO [...] T O EPIC CONVERSION 09/15/2016 5:48 PM OFFSHORE WIND OPERATIONS MANAGER 09/15/2016 5:48 PM OFFSHORE WIND OPERATIONS MANAGER Narrative [facility] TO EPIC CONVERSION - 09/15/2016 9:05 PM OFFSHORE WIND OPERATIONS MANAGER Result Communication: No patient communication needed at this time Royer Hidalgo MD URINE ORDERABLES Final Result [facility] TO EPIC CONVERSION * URINALYSIS AUTO DIP (09/15/2016 11:19 AM OFFSHORE WIND OPERATIONS MANAGER) COLOR (U) Yellow [facility] T O EPIC [...] TO EPIC CONVERSION 09/15/2016 11:1 9 AM OFFSHORE WIND OPERATIONS MANAGER 09/15/2016 11:19 AM OFFSHORE WIND OPERATIONS MANAGER Narrative [facility] TO EPIC CONVERSION - 09/15/2016 11:19 AM OFFSHORE WIND OPERATIONS MANAGER Result Communication: No patient communication needed at this time us Royer Hidalgo MD URINE ORDERABLES Final Result [facility] TO EPIC CONVERSION documented in this encounter Visit Diagnoses Not on filedocumented in this encounter
--- OUTSIDE RECORDS SUMMARY | 2024-07-11 00:22 | XMS_ITS | Encounter Summary ---
Author Organization [facility] Address [address] [place] [address]. [place], [place] [address] [place] [address] Care Team Providers Care Mercury Cracking Tester Name Role Phone Royer Hidalgo MD Primary Care Provider [phone] Royer Hidalgo MD Primary Care Provider [phone] Encounter Details Date Type Department Care Team (Late st Contact Info) Description 05/14/[address] [address] Emory Bernstein MD Social History Tobacco Use Types Packs/Day Years Used Date Smoking Tobacco: Never Assessed Comments Unknown Sex and Gender Information Value Date Recorded Sex Assigned at Not on file Legal Sex Female 5:47 PM CDT Gender Identity Female 07/17/2022 10:27 AM LAST TRIMMER Sexual Orientation Straight 07/17/2022 10 :27 AM LAST TRIMMER documented as of this encounter Progress [...] XY Sacrum Coccyx 2+ View [place] (Report) [facility] Family [address] [place] [address] Name: Veronica Evangelista MD: Royer Hidalgo Order Number: [id number] : 1970 Sex: F Performing Location: [facility] Procedure Code: Procedure: XY Sacrum Coccyx [...] st Contact Info) Description 07/25/2024 10:00 AM LAST TRIMMER Office Visit [facility] Family & Internal Medicine - [place] [address] [place] [address] Keyonna Armstrong APNP [address] [place] [address] 07/31/2024 10:15 AM LAST TRIMMER Office Visit [facility] [place] [address] [place] [address] Pepe Mitchell MD Three [facility]. [place] [address] [place] [address] documented as of this encounter Procedures Procedure Name Priority Date/Time Associated Diagnosis Comments XR SACRUM+COCCYX MIN 2V Routine 05/14/2015 1:28 PM CDT documented in this encounter Results * XR SACRUM+COCCYX MIN 2V (05/14/2015 1:28 PM CDT) Anatomical Region Laterality Modality Spine Radiographic Breonna ging 05/14/2015 1:28 PM CDT 05/14/2015 1:28 PM CDT Narrative 05/14/2015 2:44 PM CDT [facility] [address] [place], [place] [address] ?? Name: Veronica Evangelista MD: Royer Hidalgo Order Number: [id number] : 1970 Sex: F Performing Location: [facility] [...] Procedure Note Royer Hidalgo MD - 05/15/2018 [facility] [address] [place] [address] Name: Veronica Evangelista MD: RockyRoyer Order Number: [id number] : 1970 Sex: F Performing Location: [facility] Procedure Code: Procedure: XY Sacrum Coccyx [...] on filedocumented in this encounter Care Teams Mercury Cracking Tester Relationship Specialty Start Date End Date Royer Hidalgo MD PCP - General 04/25/16 09/14/16 Royer Hidalgo MD PCP - General 05/14/15 04/24/16 documented as of this encounter
--- OUTSIDE RECORDS SUMMARY | 2024-07-11 00:22 | XMS_ITS | Encounter Summary ---
Author Organization [facility] Address [facility]6 [facility]. [place], [place] [address] [place] [address] Care Team Providers Care Modeling Director Name Role Phone Royer Hidalgo MD Primary Care Provider [phone] Royer Hidalgo MD Primary Care Provider [phone] Priyanka Zepeda MD Primary Care Provider Unavailab le Encounter Details Date Type Department Care Team (Latest Contact Info) Description 06/29/2014 Abstract [facility] , Claudia Gaines MD Social History Tobacco Use Types Packs/Day Years Used Date Smoking Tobacco: Never Assessed Comments Unknown Sex and Gender Information Value Date Recorded Sex Assigned at Not on file Legal Sex Female 5:47 PM CDT Gender Identity Female 07/17/2022 10:27 AM SCHOOL CUSTODIAN Sexual Orientation Straight 07/17/2022 10 :27 AM SCHOOL CUSTODIAN documented as of this encounter Progress Notes * Royer Hidalgo MD - 06/29/2014 2:06 PM CST Message Recorded as Task Date: 06/29/2014 11:56 AM, Created By: Bri Ruiz Task Name: Renew Medication Assigned To: [facility] Nursing Team Regarding Patient: Veronica Evangelista, Status: Active Comment: Bri Ruiz - 29 Jun 2014 11:56 AM TASK CREATED Caller: Self; Renew Medication; pt. is needing a refill on Amitriptyline HCI 25 MG. pharm- [facility] - 29 Jun 2014 2:06 PM TASK EDITED Pt has remaining refills of Amitriptyline. States she needs refill of Ambien CR. Med called to [facility] in [place] per pt request. Pt aware. Current Meds 1. Amitriptyline HCl - 25 MG Oral Tablet; TAKE 1 TABLET AT BEDTIME; Therapy: 25Feb2013 to (Evaluate:22Aug2014) Requested for: [id number]; Last Rx:[id number] Ordered 2. Enpresse-28 Oral Tablet; Take 1 tablet daily as directed; Therapy: 30May2012 to (Evaluate:28Dec2014) Requested for: 15Jun2014; Last Rx:15Jun2014 Ordered 3. Gas Relief CAPS; Therapy: (Recorded:23Sep2013) to Recorded 4. Hydrochlorothiazide 25 MG Oral Tablet; TAKE ONE TABLET BY MOUTH EVERY DAY; Therapy: 20May2012 to (Evaluate:17Aug2014) Requested for: 19Iul5120; Last Rx:33Lxg5640 Ordered 5. Hydrocodone-Acetaminophen 5-325 MG Oral Tablet; TAKE 1 TO 2 TABLETS EVERY 4 TO 6 HOURS NEEDED FOR PAIN. NO MORE THAN 8 TABLETS PER DAY; Therapy: 25Sep2013 to (Evaluate:27Sep2013); Last Rx:25Sep2013 Ordered 6. LORazepam 0.5 MG Oral Tablet; Take 1 tablet twice a day; Therapy: 07Jul2013 to (Evaluate:75Quz7374) Requested for: 15Jun2014; Last Rx:15Jun2014 Ordered 7. MetFORMIN HCl - 500 MG Oral Tablet; TAKE 1 TABLET EVERY MORNING AND THEN TAKE 2 TABLETS AT BEDTIME; Therapy: 24Dec2011 to (Evaluate:14Jun2014) Requested for: 40Heg9719; Last Rx:[id number] Ordered 8. Multivitamins TABS; Therapy: (Recorded:23Sep2013) to Recorded 9. Pantoprazole Sodium 40 MG Oral Tablet Delayed Release; TAKE ONE TABLET BY MOUTH EVERY DAY; Therapy: 08Jun2012 to (Evaluate:73Wzn2131) Requested for: 66Ihz4264; Last Rx:08Kig5361 Ordered 10. Promethazine HCl - 25 MG Oral Tablet; TAKE 1 TABLET Every 8 hours PRN nausea; Therapy: 81Jlh3201 to (Evaluate:22Rcz5588) Requested for: 92Pbw1488; Last Rx:37Zbg2787 Ordered 11. Transderm-Scop 1.5 MG Transdermal Patch 72 Hour; APPLY 1 PATCH EVERY 3 DAYS; Therapy: 48Ary8481 to (Last Rx:13Qry5681) Requested for: 25Hdh0801 Ordered 12. Venlafaxine HCl ER 75 MG Oral Capsule Extended Release 24 Hour; Take 1 capsule in am and 2 capsule in evening; Therapy: 13May2012 to (Evaluate:13Aug2014) Requested for: 18Aug2013; Last Rx:74Mue1583 Ordered 13. Vitamin D3 1000 UNIT Oral Tablet; Therapy: (Recorded:23Sep2013) to Recorded 14. Zolpidem Tartrate ER 12.5 MG Oral Tablet Extended Release (Ambien CR); TAKE ONE TABLET BY MOUTH AT BEDTIME NEEDED FOR SLEEP; Therapy: 57Vey8074 to (Evaluate:29Jul2014) Requested for: 61Rzi0926; Last Rx:[id number] Ordered Signatures Electronically signed by : Royer Hidalgo M.D.; Jun 29 2014 2:46PM SCHOOL CUSTODIAN (Author) documented in this encounter Plan of Treatment Upcoming Encounters Date Type Department Care Team (Late st Contact Info) Description 07/25/2024 10:00 AM SCHOOL CUSTODIAN Office Visit [facility] Medical Group Family & Internal Medicine - [place] [address] [place] [address] Keyonna Armstrong APNP [address] [place] [address] 07/31/2024 10:15 AM SCHOOL CUSTODIAN Office Visit [facility], [facility] [address] [place] [address] Pepe Mitchell MD [facility]. [facility] [address] [place], [place] [address] documented as of this encounter Visit Diagnoses Not on filedocumented in this encounter Care Teams Modeling Director Relationship Specialty Start Date End Date Royer Hidalgo MD PCP - General 04/25/16 09/14/16 Royer Hidalgo MD PCP - General 05/14/15 04/24/16 Priyanka Zepeda MD PCP - General 04/22/13 05/13/15 documented as of this encounter
--- OUTSIDE RECORDS SUMMARY | 2024-07-11 00:22 | XMS_ITS | Encounter Summary ---
Author Organization [facility] Address [address] [place] [address]. [place], [place] [address] [place] [address] Care Team Providers Care Manager Provider Relations Name Role Phone Royer Hidalgo MD Primary Care Provider [phone] Royer Hidalgo MD Primary Care Provider [phone] Priyanka Zepeda MD Primary Care Provider Unavailab le Encounter Details Date Type Department Care Team (Latest Contact Info) Description 01/18/2015 Abstract [facility] Royer Hidalgo MD [address] [place] [address] Social History Tobacco Use Types Packs/Day Years Used Date Smoking Tobacco: Never Assessed Comments Unknown Sex and Gender Information Value Date Recorded Sex Assigned at Not on file Legal Sex Female 5:47 PM CDT Gender Identity Female 07/17/2022 10:27 AM INDUSTRIAL SEWER Sexual Orientation Straight 07/17/2022 10 :27 AM INDUSTRIAL SEWER documented as of this encounter Progress Notes * Generic Conversion MD Marti - 01/18/2015 7:33 AM CDT Message Recorded as Task Date: 01/11/2015 09:31 AM, Created By: Bri Ruiz Task Name: Renew Medication Assigned To: [facility]-Nursing Team Regarding Patient: Veronica Evangelista, Status: Active Comment: Bri Ruiz - 11 Jan 2015 9:31 AM TASK CREATED Caller: Self; Renew Medication; Pt. stated that Zolpidem 10 MG has not been working and it is also not covered under her ins. anymore. Pt. said that Lunesta was covered and wanted to know if she could try this since Zolpidem is notworking.. [facility] [place] ArturoAnupama sullivan - 12 Jan 2015 9:12 [...] Thanks! Message: Script for Lunesta called into [facility] /t Signatures Electronically signed by : Anupama Maddox, ; Jan 18 2015 7:36AM INDUSTRIAL SEWER (Author) documented in this encounter Plan of Treatment Upcoming Encounters Date Type Department Care Team (Late st Contact Info) Description 07/25/2024 10:00 AM INDUSTRIAL SEWER Office Visit [facility] Family & Internal Medicine - [place] [address] [place] [address] Keyonna Armstrong APNP [address] [place] [address] 07/31/2024 10:15 AM INDUSTRIAL SEWER Office Visit [facility], [place] [address] [place] [address] Pepe Mitchell MD Three [facility]. [facility] [address] [place], [place] [address] documented as of this encounter Visit Diagnoses Not on filedocumented in this encounter Care Teams Manager Provider Relations Relationship Specialty Start Date End Date Royer Hidalgo MD PCP - General 04/25/16 09/14/16 Royer Hidalgo MD PCP - General 05/14/15 04/24/16 Priyanka Zepeda MD PCP - General 04/22/13 05/13/15 documented as of this encounter
--- OUTSIDE RECORDS SUMMARY | 2024-07-11 00:22 | XMS_ITS | Encounter Summary ---
Author Organization [facility] Address [facility]. [place], [place] [address] [place] [address] Care Team Providers Care Textile Machine Operator Name Role Phone Royer Hidalgo MD Primary Care Provider [phone] Royer Hidalgo MD Primary Care Provider [phone] Priyanka Zepeda MD Primary Care Provider Unavailab le Encounter Details Date Type Department Care Team (Latest Contact Info) Description 12/17/2013 Abstract [facility] , Claudia Gaines MD Social History Tobacco Use Types Packs/Day Years Used Date Smoking Tobacco: Never Assessed Comments Unknown Sex and Gender Information Value Date Recorded Sex Assigned at Not on file Legal Sex Female 5:47 PM CDT Gender Identity Female 07/17/2022 10:27 AM TEST ENGINE OPERATOR Sexual Orientation Straight 07/17/2022 10 :27 AM TEST ENGINE OPERATOR documented as of this encounter Progress Notes * Royer Hidalgo MD - 12/17/2013 1:47 PM CDT Message Recorded as Task Date: 12/16/2013 09:54 AM, Created By: Vicki Mcgill Task Name: Renew Medication Assigned To: [facility]- Nursing Team Regarding Patient: Veronica Evangelista, Status: [...] Tablet; TAKE 1 TABLET AT BEDTIME; Therapy: 40Msk3102 to (Evaluate:14Csw3537) Requested for: 30Gcq4891; Last Rx:79Gxz1351; Status: ACTIVE - Renewal Denied Ordered 2. Enpresse-28 Oral Tablet; Take 1 tablet daily as directed; Therapy: 30May2012 to (Evaluate:18Jun2014) Requested for: 29Dum1768; Last Rx:18Zag2949 Ordered 3. Gas Relief CAPS; Therapy: (Recorded:23Sep2013) to Recorded 4. Hydrochlorothiazide 25 MG Oral Tablet; TAKE ONE TABLET BY MOUTH EVERY DAY; Therapy: 20May2012 to (Evaluate:93Mnj0711) Requested for: 76Sci6229; Last Rx:49Kks1773 Ordered 5. Hydrocodone-Acetaminophen 5-325 MG Oral Tablet; TAKE 1 TO 2 TABLETS EVERY 4 TO 6 HOURS NEEDED FOR PAIN. NO MORE THAN 8 TABLETS PER DAY; Therapy: 25Sep2013 to (Evaluate:27Sep2013); Last Rx:25Sep2013 Ordered 6. LORazepam 0.5 MG Oral Tablet; Take 1 tablet twice a day; Therapy: 63Iby4676 to (Evaluate:09Jan2014) Requested for: 37Ptx7360; Last Rx:14Ils2327 Ordered 7. MetFORMIN HCl - 500 MG Oral Tablet; Therapy: 24Dec2011 to Recorded 8. Multivitamins TABS; Therapy: (Recorded:23Sep2013) to Recorded 9. Pantoprazole Sodium 40 MG Oral Tablet Delayed Release; TAKE ONE TABLET BY MOUTH EVERY DAY; Therapy: 08Jun2012 to (Evaluate:05Zui3596) Requested for: 16Jun2013; Last Rx:48Qux4724 Ordered 10. Sulfamethoxazole-TMP DS 800-160 MG Oral Tablet; TAKE 1 TABLET TWICE DAILY UNTIL FINISHED; Therapy: 25Sep2013 to (Evaluate:02Oct2013) Requested for: 25Sep2013; Last Rx:25Sep2013 Ordered 11. TraZODone HCl - 50 MG Oral Tablet; Take 1-2 tablets at bedtime as needed for sleep; Therapy: 93Dpw3145 to (Last Rx:72Lsc1602) Requested for: 03Cnm9090 Ordered 12. Venlafaxine HCl ER 75 MG [...] TABLET AT BEDTIME NEEDED FOR SLEEP; Therapy: 44Eyu9232 to (Evaluate:31Dec2013); Last Rx:58Grx5058 Ordered Signatures Electronically signed by : Royer Hidalgo M.D.; Dec 17 2013 3:53PM TEST ENGINE OPERATOR (Author) documented in this encounter Plan of Treatment Upcoming Encounters Date Type Department Care Team (Late st Contact Info) Description 07/25/2024 10:00 AM TEST ENGINE OPERATOR [facility] Family [facility] Internal Medicine - [place] [address] [place] [address] Keyonna Armstrong APNP [address] [place] [address] 07/31/2024 10:15 AM TEST ENGINE OPERATOR Office Visit [facility], [facility] [address] [place], [place] [phone] Pepe Mitchell MD Three [facility]. [facility] [address] [place], [place] [id number] documented as of this encounter Visit Diagnoses Not on filedocumented in this encounter Care Teams Textile Machine Operator Relationship Specialty Start Date End Date Royer Hidalgo MD PCP - General 04/25/16 09/14/16 Royer Hidalgo MD PCP - General 05/14/15 04/24/16 Priyanka Zepeda MD PCP - General 04/22/13 05/13/15 documented as of this encounter
--- OUTSIDE RECORDS SUMMARY | 2024-07-11 00:22 | XMS_ITS | Encounter Summary ---
Author Organization [facility] Address [facility]. [place], [place] [address] [place] [address] Care Team Providers Care Owner/Photographer Name Role Phone Royer Hidalgo MD Primary Care Provider [phone] Royer Hidalgo MD Primary Care Provider [phone] Priyanka Zepeda MD Primary Care Provider Unavailab le Encounter Details Date Type Department Care Team (Latest Contact Info) Description 04/13/2014 Abstract [facility] Social History Tobacco Use Types Packs/Day Years Used Date Smoking Tobacco: Never Assessed Comments Unknown Sex and Gender Information Value Date Recorded Sex Assigned at Not on file Legal Sex Female 5:47 PM CDT Gender Identity Female 07/17/2022 10:27 AM CLOTH TEARER Sexual Orientation Straight 07/17/2022 10 :27 AM CLOTH TEARER documented as of this encounter Miscellaneous Notes [...] by:Royer Hidalgo M.D. Apr 15 2014 3:07PM CLOTH TEARER documented in this encounter Plan of Treatment Upcoming Encounters Date Type Department Care Team (Late st Contact Info) Description 07/25/2024 10:00 AM CLOTH TEARER Office Visit [facility] Family & Internal Medicine [address] [address] Keyonna Armstrong APNP [address] [place] [address] 07/31/2024 10:15 AM CLOTH TEARER Office Visit [facility], [facility] [address] [place] [address] Pepe Mitchell MD [facility]. [facility] [address] [place], [place] [address] documented as of this encounter Visit Diagnoses Not on filedocumented in this encounter Care Teams Owner/Photographer Relationship Specialty Start Date End Date Royer Hidalgo MD PCP - General 04/25/16 09/14/16 Royer Hidalgo MD PCP - General 05/14/15 04/24/16 Priyanka Zepeda MD PCP - General 04/22/13 05/13/15 documented as of this encounter
--- OUTSIDE RECORDS SUMMARY | 2024-07-11 00:22 | XMS_ITS | Encounter Summary ---
Author Organization [facility] Address [facility]. [place], [place] [address] [place] [address] Care Team Providers Care Shafting Cleaner Name Role Phone Royer Hidalgo MD Primary Care Provider [phone] Royer Hidalgo MD Primary Care Provider [phone] Priyanka Zepeda MD Primary Care Provider Unavailab le Encounter Details Date Type Department Care Team (Latest Contact Info) Description 05/22/2014 Abstract [facility] Royer Hidalgo MD [address] [facility] [place] [address] Social History Tobacco Use Types Packs/Day Years Used Date Smoking Tobacco: Never Assessed Comments Unknown Sex and Gender Information Value Date Recorded Sex Assigned at Not on file Legal Sex Female 5:47 PM CDT Gender Identity Female 07/17/2022 10:27 AM COMMERCIAL REPORTER Sexual Orientation Straight 07/17/2022 10 :27 AM COMMERCIAL REPORTER documented as of this encounter Plan of Treatment Upcoming Encounters Date Type Department Care Team (Late st Contact Info) Description 07/25/2024 10:00 AM COMMERCIAL REPORTER Office Visit [facility] Family & Internal Medicine [facility] [address] [place] [address] Keyonna Armstrong APNP [address] [place] [address] 07/31/2024 10:15 AM COMMERCIAL REPORTER Office Visit [facility], [address] [address] Pepe [facility] [place] [address] [place] [address] documented as of this encounter Visit Diagnoses Not on filedocumented in this encounter Care Teams Shafting Cleaner Relationship Specialty Start Date End Date Royer Hidalgo MD PCP - General 04/25/16 09/14/16 Royer Hidalgo MD PCP - General 05/14/15 04/24/16 Priyanka Zepeda MD PCP - General 04/22/13 05/13/15 documented as of this encounter
--- OUTSIDE RECORDS SUMMARY | 2024-07-11 00:22 | XMS_ITS | Encounter Summary ---
Author Organization [facility] Address [facility]6 [facility]. [place], [place] [address] [place] [address] Care Team Providers Care Barrel Planer Name Role Phone Royer Hidalgo MD Primary Care Provider [phone] Royer Hidalgo MD Primary Care Provider [phone] Priyanka Zepeda MD Primary Care Provider Unavailab le Encounter Details Date Type Department Care Team (Latest Contact Info) Description 11/24/2014 Abstract [facility] Social History Tobacco Use Types Packs/Day Years Used Date Smoking Tobacco: Never Assessed Comments Unknown Sex and Gender Information Value Date Recorded Sex Assigned at Not on file Legal Sex Female 5:47 PM CDT Gender Identity Female 07/17/2022 10:27 AM GAS BLENDER Sexual Orientation Straight 07/17/2022 10 :27 AM GAS BLENDER documented as of this encounter Plan of Treatment Upcoming Encounters Date Type Department Care Team (Late st Contact Info) Description 07/25/2024 10:00 AM GAS BLENDER Office Visit [facility] Family & Internal Medicine [facility] [address] [place] [address] Keyonna Armstrong APNP [address] [place] [address] 07/31/2024 10:15 AM GAS BLENDER Office Visit [facility], [facility] [address] [place], [place] [phone] Pepe Mitchell MD [facility]. [place] [address] [place], [place] [phone] documented as of this encounter Visit Diagnoses Not on filedocumented in this encounter Care Teams Barrel Planer Relationship Specialty Start Date End Date Royer Hidalgo MD PCP - General 04/25/16 09/14/16 Royer Hidalgo MD PCP - General 05/14/15 04/24/16 Priyanka Zepeda MD PCP - General 04/22/13 05/13/15 documented as of this encounter
--- OUTSIDE RECORDS SUMMARY | 2024-07-11 00:22 | XMS_ITS | Encounter Summary ---
Author Organization [facility] Address [address] [place] [address]. [place], [place] [address] [place] [address] Care Team Providers Care Waistline Joiner Name Role Phone Reji Sprague MD Primary Care Provider [phone] Reji Sprague MD Primary Care Provider [phone] Priyanka Zepeda MD Primary Care Provider Unavailab le Encounter Details Date Type Department Care Team (Late st Contact Info) Description 08/11/2014 Abstract [facility] Family Medicine - [address] [phone] Reji Sprague MD [address] [facility] [place] [address] Social History Tobacco Use Types Packs/Day Years Used Date Smoking Tobacco: Never Assessed Comments Unknown Sex and Gender Information Value Date Recorded Sex Assigned at Not on file Legal Sex Female 5:47 PM CDT Gender Identity Female 07/17/2022 10:27 AM SENIOR CENTER DIRECTOR Sexual Orientation Straight 07/17/2022 10 :27 AM SENIOR CENTER DIRECTOR documented as of this encounter Last Filed Vital Signs Vital Sign Reading Time Taken Comments Blood Pressure 140/95 08/11/2014 3:11 PM SENIOR CENTER DIRECTOR Pulse 90 08/11/2014 3:11 PM SENIOR CENTER DIRECTOR Temperature - - Respiratory Rate - - Oxygen Saturation - - Inhaled Oxygen Concentration - - Weight 128.8 kg (284 lb) 08/11/2014 3:11 PM SENIOR CENTER DIRECTOR Height 167.6 cm (5' 6) 08/11/2014 3:11 PM SENIOR CENTER DIRECTOR Body Mass Index 45.84 08/11/2014 3:11 PM SENIOR CENTER DIRECTOR documented in this encounter Progress Notes * [...] BY MOUTH TWICE A DAY NEEDED; Therapy: 61Vcn3230 to (Evaluate:30Dec2014) Requested for: 84Mdi2966; Last Rx:84Rig2855 Ordered 2. Enpresse-28 Oral Tablet; Take 1 tablet daily as directed; Therapy: 30May2012 to (Evaluate:28Dec2014) Requested for: 15Jun2014; Last Rx:84Ibo5728 Ordered 3. Hydrochlorothiazide 25 MG Oral Tablet; TAKE ONE TABLET BY MOUTH EVERY DAY; Therapy: 20May2012 to (Evaluate:30Dec2014) Requested for: 26Bvc1415; Last Rx:36Iuo3477 Ordered 4. LORazepam 0.5 MG Oral Tablet; Take 1 tablet twice a day; Therapy: 15Dav5569 to (Evaluate:13Aug2014) Requested for: 00Pbb8737; Last Rx:09Skw8026 Ordered 5. MetFORMIN HCl - 500 MG Oral Tablet; TAKE 1 TABLET EVERY MORNING AND THEN TAKE 2 TABLETS AT BEDTIME; Therapy: 24Dec2011 to (Evaluate:70Uup1777) Requested for: 29Jul2014; Last Rx:29Jul2014 Ordered 6. Multivitamins TABS; Therapy: (Recorded:23Sep2013) to Recorded 7. Pantoprazole Sodium 40 MG Oral Tablet Delayed Release; TAKE ONE TABLET BY MOUTH EVERY DAY; Therapy: 08Jun2012 to (Evaluate:95Uio9384) Requested for: 82Gxz2801; Last Rx:07Ovc1211 Ordered 8. Polyethylene Glycol 3350 Oral Powder; MIX 1 CAPFUL (17GM) IN 8 OUNCES OF WATER, JUICE, OR TEA AND DRINK DAILY; Therapy: 04Rgl6704 to (Evaluate:55Bgp9415) Requested for: 03Jul2014; Last Rx:58Tos8173 Ordered 9. Venlafaxine HCl ER 75 MG Oral Capsule Extended Release 24 Hour; Take 1 capsule in am and 2 capsule in evening; Therapy: 13May2012 to (Evaluate:72Bvy8161) Requested for: 05Aug2014; Last Rx:05Aug2014 Ordered 10. Vitamin D3 1000 UNIT Oral Tablet; Therapy: (Recorded:23Sep2013) to Recorded 11. Zolpidem Tartrate ER 12.5 MG Oral Tablet Extended Release (Ambien CR); TAKE 1 TABLET BY MOUTH AT BEDTIME NEEDED FOR SLEEP; Therapy: 01Dec2013 to (Evaluate:28Dbs7852) Requested for: 29Jul2014; Last Rx:29Jul2014 Ordered Allergies [...] TEX = N; Verified Transmission to [facility] #3728; Last Updated By: JobFlashSignNow; 08/11/2014 3:34:31 PM Insomnia 2. Stop: Zolpidem Tartrate ER 12.5 MG Oral Tablet Extended Release (Ambien CR 12.5 MG Oral Tablet Extended Release) Rx By: Reji Sprague; Dispense: 30 Days ; #:30 Tablet Extended Release; Refill: 5; For: Insomnia; TEX = N; Record 3. Start: Zaleplon 5 MG Oral Capsule; TAKE 1-2 CAPSULES AT BEDTIME NEEDED Rx By: Reji Sprgaue; Dispense: 30 Days ; #:60 Capsule; Refill: 1; For: Insomnia; TEX = N; Print Rx Right knee pain 4. Start: Ibuprofen 800 MG Oral Tablet; TAKE 1 TABLET 3 TIMES DAILY WITH FOOD NEEDED for pain Rx By: Reji Sprague; Dispense: 10 Days ; #:30 Tablet; Refill: 5; For: Right knee pain; TXE = N; Verified Transmission to [facility] #2510; Last Updated By: MarleyProxama; 08/11/2014 3:34:30 PM XY Knee 1 to 2 View Rt NC Status: Resulted - Requires Verification Done: 23Jul2024 12:00AM Order Comments: 43 year old female with 1 month history of right lateral knee pain. Due: 82Eeb6049;Ordered; For: Right knee pain; Ordered By: Reji [...] Reji Sprague M.D.; Aug 11 2014 5:46PM SENIOR CENTER DIRECTOR (Author) documented in this encounter Plan of Treatment Upcoming Encounters Date Type Department Care Team (Late st Contact Info) Description 07/25/2024 10:00 AM SENIOR CENTER DIRECTOR Office Visit [facility] Family & Internal Medicine - [place] [address] [place] [address] Keyonna Armstrong APNP [address] [place] [address] 07/31/2024 10:15 AM SENIOR CENTER DIRECTOR Office Visit [facility], [facility] [address] [place] [address] Pepe Mitchell MD [facility]. [facility] [address] [place] [address] documented as of this encounter Procedures Procedure Name Priority Date/Time Associated Diagnosis Comments SURG XR KNEE RT 1-2V Routine 08/11/2014 3:37 PM SENIOR CENTER DIRECTOR documented in this encounter Results * SURG XR KNEE RT 1-2V (08/11/2014 3:37 PM SENIOR CENTER DIRECTOR) Anatomical Region Laterality Modality Knee IMAGES ONLY 08/11/2014 3:37 PM SENIOR CENTER DIRECTOR 08/11/2014 3:37 PM SENIOR CENTER DIRECTOR Narrative 08/11/2014 3:48 PM SENIOR CENTER DIRECTOR [facility] ?? [facility] ?? [address] ?? [place], [place] ??[address] ? KIERA EVANGELISTA MD: REJI SPRAGUE MD, REF ?? Acct: [id number] ?? Hospital Hospital Act #: [id number] ?? : 1970 Pt Type: REG REF ?? Sex: F Ord Site: [facility] ? Study Date Accession # Procedure Code Procedure ?? 08/11/14 [id number] Knee 1 to 2 View Rt [...] Procedure Note Reji Sprague MD - 05/16/2018 [facility] [address] [place] [address] KIERA EVANGELISTA MD: REJI SPRAGUE MD, REF Acct: [id number] [facility] Act #: [id number] : 1970 Pt Type: REG REF Sex: F Ord Site: [facility] Study Date Accession # Procedure Code Procedure 08/11/14 [id number] XY Knee 1 to 2 View Rt [...] on filedocumented in this encounter Care Teams Waistline Joiner Relationship Specialty Start Date End Date Reji Sprague MD PCP - General 04/25/16 09/14/16 Reji Sprague MD PCP - General 05/14/15 04/24/16 Priyanka Zepeda MD PCP - General 04/22/13 05/13/15 documented as of this encounter
--- OUTSIDE RECORDS SUMMARY | 2024-07-11 00:22 | XMS_ITS | Encounter Summary ---
Author Organization [facility] Address [facility]. [place], [place] [address] [place] [address] Care Team Providers Care Saw Runner Name Role Phone Royer Hidalgo MD Primary Care Provider [phone] Royer Hidalgo MD Primary Care Provider [phone] Priyanka Zepeda MD Primary Care Provider Unavailab le Encounter Details Date Type Department Care Team (Latest Contact Info) Description 08/27/2014 Abstract [facility] Social History Tobacco Use Types Packs/Day Years Used Date Smoking Tobacco: Never Assessed Comments Unknown Sex and Gender Information Value Date Recorded Sex Assigned at Not on file Legal Sex Female 5:47 PM CDT Gender Identity Female 07/17/2022 10:27 AM ASSISTANT KITCHEN MANAGER Sexual Orientation Straight 07/17/2022 10 :27 AM ASSISTANT KITCHEN MANAGER documented as of this encounter Progress [...] 10:05 AM TASK EDITED Med called to [facility] in [place] per pt request. Current Meds 1. Amitriptyline HCl - 25 MG Oral Tablet; TAKE 1 TO 2 TABLETS BY MOUTH EVERY EVENING AT BEDTIME; Therapy: 50Kej4583 to (Evaluate:16Nov2014) Requested for: 18Aug2014; Last Rx:18Aug2014 Ordered 2. Atenolol 50 MG Oral Tablet; TAKE 1 TABLET BY MOUTH TWICE A DAY NEEDED; Therapy: 90Vqw1511 to (Evaluate:30Dec2014) Requested for: 96Sdo1460; Last Rx:08Nfx8836 Ordered 3. Enpresse-28 Oral Tablet; Take 1 tablet daily as directed; Therapy: 30May2012 to (Evaluate:28Dec2014) Requested for: 15Jun2014; Last Rx:15Jun2014 Ordered 4. Hydrochlorothiazide 25 MG Oral Tablet; TAKE ONE TABLET BY MOUTH EVERY DAY; Therapy: 20May2012 to (Evaluate:30Dec2014) Requested for: 73Ewx3259; Last Rx:92Yty5789; Status: ACTIVE - Renewal Denied Ordered 5. Ibuprofen 800 MG Oral Tablet; TAKE 1 TABLET 3 TIMES DAILY WITH FOOD NEEDED for pain; Therapy: 11Aug2014 to (Evaluate:10Oct2014) Requested for: 11Aug2014; Last Rx:11Aug2014 Ordered 6. LORazepam 0.5 MG Oral Tablet; TAKE 1 TABLET BY MOUTH TWICE A DAY NEEDED; Therapy: 98Nwt0403 to (Evaluate:13Lum6001) Requested for: 13Aug2014; Last Rx:13Aug2014 Ordered 7. MetFORMIN HCl - 500 MG Oral Tablet; TAKE 1 TABLET EVERY MORNING AND THEN TAKE 2 TABLETS AT BEDTIME; Therapy: 24Dec2011 to (Evaluate:07Mrr8248) Requested for: 29Jul2014; Last Rx:29Jul2014 Ordered 8. Methocarbamol 750 MG Oral Tablet; TAKE 1 TO 2 TABLETS 3 TIMES DAILY NEEDED FOR MUSCLE SPASM; Therapy: 11Aug2014 to (Evaluate:21Aug2014) Requested for: 11Aug2014; Last Rx:11Aug2014 Ordered 9. Multivitamins TABS; Therapy: (Recorded:23Sep2013) to Recorded 10. Pantoprazole Sodium 40 MG Oral Tablet Delayed Release; TAKE ONE TABLET BY MOUTH EVERY DAY; Therapy: 67Dqy9902 to (Evaluate:31Lnf4021) Requested for: 91Ddq6314; Last Rx:36Qio9294 Ordered 11. Polyethylene Glycol 3350 Oral Powder; MIX 1 CAPFUL (17GM) IN 8 OUNCES OF WATER, JUICE, OR TEA AND DRINK DAILY; Therapy: 96Qdl8180 to (Evaluate:05Pmo0876) Requested for: 23Ofc4973; Last Rx:48Ivg4592 Ordered 12. Venlafaxine HCl ER 75 MG Oral Capsule Extended Release 24 Hour; Take 1 capsule in am and 2 capsule in evening; Therapy: 45Pyx4250 to (Evaluate:28Aqg9894) Requested for: 05Aug2014; Last Rx:21Kik9330 Ordered 13. Vitamin D3 1000 UNIT Oral Tablet; Therapy: (Recorded:23Sep2013) to Recorded Plan 1. Renew: Zolpidem Tartrate ER 12.5 MG Oral Tablet Extended Release (Ambien CR 12.5 MG Oral Tablet Extended Release); TAKE 1 TABLET BY MOUTH AT BEDTIME NEEDED FOR SLEEP Signatures Electronically signed by : Royer Hidalgo M.D.; Aug 27 2014 2:07PM ASSISTANT KITCHEN MANAGER (Author) documented in this encounter Plan of Treatment Upcoming Encounters Date Type Department Care Team (Late st Contact Info) Description 07/25/2024 10:00 AM ASSISTANT KITCHEN MANAGER Office Visit [facility] Medical [facility] Family & Internal Medicine - [place] [address] [place] [address] Keyonna Armstrong APNP [address] [place] [address] 07/31/2024 10:15 AM ASSISTANT KITCHEN MANAGER Office Visit [facility], [facility] [address] [place], [place] [phone] Pepe Mitchell MD [facility]. [facility] [address] [place], [place] [id number] documented as of this encounter Visit Diagnoses Not on filedocumented in this encounter Care Teams Saw Runner Relationship Specialty Start Date End Date Royer Hidalgo MD PCP - General 04/25/16 09/14/16 Royer Hidalgo MD PCP - General 05/14/15 04/24/16 Priyanka Zepeda MD PCP - General 04/22/13 05/13/15 documented as of this encounter
--- OUTSIDE RECORDS SUMMARY | 2024-07-11 00:22 | XMS_ITS | Encounter Summary ---
Author Organization [facility] Address [facility]. [place], [place] [address] [place] [address] Care Team Providers Care Veterinary Laboratory Diagnostician Name Role Phone Royer Hidalgo MD Primary Care Provider [phone] Royer Hidalgo MD Primary Care Provider [phone] Priyanka Zepeda MD Primary Care Provider Unavailab le Encounter Details Date Type Department Care Team (Latest Contact Info) Description 12/03/[address] [facility] Social History Tobacco Use Types Packs/Day Years Used Date Smoking Tobacco: Never Assessed Comments Unknown Sex and Gender Information Value Date Recorded Sex Assigned at Not on file Legal Sex Female 5:47 PM CDT Gender Identity Female 07/17/2022 10:27 AM LIFE SKILLS SPECIALIST Sexual Orientation Straight 07/17/2022 10 :27 AM LIFE SKILLS SPECIALIST documented as of this encounter Plan of Treatment Upcoming Encounters Date Type Department Care Team (Late st Contact Info) Description 07/25/2024 10:00 AM LIFE SKILLS SPECIALIST Office Visit [facility] Family & Internal Medicine [facility] [address] [place] [address] Keyonna Armstrong APNP [address] [place] [address] 07/31/2024 10:15 AM LIFE SKILLS SPECIALIST Office Visit [facility] [address] [place], [place] [phone] Pepe Mitchell MD [facility]. [place] [address] [place], [place] [phone] documented as of this encounter Visit Diagnoses Not on filedocumented in this encounter Care Teams Veterinary Laboratory Diagnostician Relationship Specialty Start Date End Date Royer Hidalgo MD PCP - General 04/25/16 09/14/16 Royer Hidalgo MD PCP - General 05/14/15 04/24/16 Priyanka Zepeda MD PCP - General 04/22/13 05/13/15 documented as of this encounter
--- OUTSIDE RECORDS SUMMARY | 2024-07-11 00:22 | XMS_ITS | Encounter Summary ---
Author Organization [facility] Address [address] [place] [address]. [place], [place] [address] [place] [address] Care Team Providers Care Plaster Tender Name Role Phone Royer Hidalgo MD Primary Care Provider [phone] Royer Hidalgo MD Primary Care Provider [phone] Encounter Details Date Type Department Care Team (Late st Contact Info) Description 05/14/[address] [facility] [place] [address] Royer Hidalgo MD [address] [facility] [place] [address] Social History Tobacco Use Types Packs/Day Years Used Date Smoking Tobacco: Never Assessed Comments Unknown Sex and Gender Information Value Date Recorded Sex Assigned at Not on file Legal Sex Female 5:47 PM CDT Gender Identity Female 07/17/2022 10:27 AM SENIOR STORAGE ENGINEER Sexual Orientation Straight 07/17/2022 10 :27 AM SENIOR STORAGE ENGINEER documented as of this encounter Plan of Treatment Upcoming Encounters Date Type Department Care Team (Late st Contact Info) Description 07/25/2024 10:00 AM SENIOR STORAGE ENGINEER Office Visit [facility] Family & Internal Medicine - [address] [address] Keyonna Armstrong APNP [address] [place] [address] 07/31/2024 10:15 AM SENIOR STORAGE ENGINEER Office Visit [facility], [place] [address] [place] [address] Pepe Mitchell MD Three [facility]. [place] [address] [place] [address] documented as of this encounter Visit Diagnoses Diagnosis Nausea Nausea alone documented in this encounter Care Teams Plaster Tender Relationship Specialty Start Date End Date Royer Hidalgo MD PCP - General 04/25/16 09/14/16 Royer Hidalgo MD PCP - General 05/14/15 04/24/16 documented as of this encounter
--- OUTSIDE RECORDS SUMMARY | 2024-07-11 00:22 | XMS_ITS | Encounter Summary ---
Author Organization [facility] Address [address] [place] [address]. [place], [place] [address] [place] [address] Care Team Providers Care Internet Marketing Consultant Name Role Phone Royer Hidalgo MD Primary Care Provider [phone] Royer Hidalgo MD Primary Care Provider [phone] Priyanka Zepeda MD Primary Care Provider Unavailab le Encounter Details Date Type Department Care Team (Late st Contact Info) Description 02/13/2014 Abstract [facility] Family Medicine - [address] [phone] Royer Hidalgo MD [address] [facility] [place] [address] Social History Tobacco Use Types Packs/Day Years Used Date Smoking Tobacco: Never Assessed Comments Unknown Sex and Gender Information Value Date Recorded Sex Assigned at Not on file Legal Sex Female 5:47 PM CDT Gender Identity Female 07/17/2022 10:27 AM SUPERVISOR EXTRUSION Sexual Orientation Straight 07/17/2022 10 :27 AM SUPERVISOR EXTRUSION documented as of this encounter Last Filed [...] Tablet; TAKE 1 TABLET AT BEDTIME; Therapy: 99Mtu4302 to (Evaluate:00Dxx7466) Requested for: 84Cwt9290; Last Rx:52Jsl3739; Status: ACTIVE - Renewal Denied Ordered 2. Enpresse-28 Oral Tablet; Take 1 tablet daily as directed; Therapy: 30May2012 to (Evaluate:18Jun2014) Requested for: 47Rft9931; Last Rx:65Eft9262 Ordered 3. Gas Relief CAPS; Therapy: (Recorded:23Sep2013) to Recorded 4. Hydrochlorothiazide 25 MG Oral Tablet; TAKE ONE TABLET BY MOUTH EVERY DAY; Therapy: 20May2012 to (Evaluate:58Lhn5088) Requested for: 25Zwr3770; Last Rx:07Sgf7401 Ordered 5. Hydrocodone-Acetaminophen 5-325 MG Oral Tablet; TAKE 1 TO 2 TABLETS EVERY 4 TO 6 HOURS NEEDED FOR PAIN. NO MORE THAN 8 TABLETS PER DAY; Therapy: 25Sep2013 to (Evaluate:27Sep2013); Last Rx:25Sep2013 Ordered 6. LORazepam 0.5 MG Oral Tablet; TAKE 1 TABLET BY MOUTH TWICE A DAY; Therapy: 43Skc4311 to (Evaluate:67Rlh3322) Requested for: 25Aux1892; Last Rx:12Kvk8832 Ordered 7. MetFORMIN HCl - 500 MG Oral Tablet; Therapy: 24Dec2011 to Recorded 8. Multivitamins TABS; Therapy: (Recorded:23Sep2013) to Recorded 9. Pantoprazole Sodium 40 MG Oral Tablet Delayed Release; TAKE ONE TABLET BY MOUTH EVERY DAY; Therapy: 08Jun2012 to (Evaluate:97Aej8516) Requested for: 24Dec2013; Last Rx:24Dec2013 Ordered 10. [...] SLEEP; Therapy: 01Dec2013 to (Evaluate:01Mar2014) Requested for: 48Dml8588; Last Rx:04Qiy9221 Ordered Allergies 1. No Known Drug Allergies Immunizations Influenza --- Series1: 19Jun2012 Vitals Recorded by : Marcella Gant at 31Bzq9028 11:34AM Heart Rate 82 Respiration 18 Systolic [...] reflux; TEX = N; Verified Transmission to [facility] #2510; Last Updated By: Brideside; 02/13/2014 11:58:56 AM History of motion sickness 2. Start: Transderm-Scop 1.5 MG Transdermal Patch 72 Hour; APPLY 1 PATCH EVERY 3 DAYS Rx By: Royer Hidalgo; Dispense: 0 Days ; #:1 X 4 Patch 72 Hour Box; Refill: 0; For: History of motion sickness; TEX = N; Verified Transmission to [facility] #2510; Last Updated By: Brideside;02/13/2014 11:58:57 AM Insomnia 3. Stop: TraZODone HCl - 50 MG Oral Tablet Rx By: Royer Hidalgo; Dispense: 0 Days ; #:30 Tablet; Refill: 0; For: Insomnia; TEX = N; Transmitted To: [facility] 361 4. Stop: Zolpidem Tartrate ER 12.5 [...] Insomnia; TEX = N; Failed Transmission to [facility] #2510; Last Updated By: Brideside; 02/13/2014 2:59:29 PM Discussion/Summary #1 Insomnia: Stop Ambien CR. Ambien 10 mg each night as needed. Continue amitriptyline. May also take melatonin 5 mg wrrb-[id number] each night. #2 Motion sickness: Scopolamine patch refill. If this is expensive, consider Phenergan or meclizine. Warned about drowsiness with all 3 medications. #3 Esophageal reflux: Stable. Refilled Protonix. Followup as needed. Signatures Electronically signed by : Royer Hidalgo M.D.; Feb 13 2014 3:06PM SUPERVISOR EXTRUSION (Author) documented in this encounter Plan of Treatment Upcoming Encounters Date Type Department Care Team (Late st Contact Info) Description 07/25/2024 10:00 AM SUPERVISOR EXTRUSION Office Visit [facility] Medical Group Family & Internal Medicine - [place] [address] [place] [address] Keyonna Armstrong APNP [address] [place] [address] 07/31/2024 10:15 AM SUPERVISOR EXTRUSION Office [facility], [facility] [address] [place] [address] Pepe Mitchell MD Three [facility]. [place] [address] [place] [address] documented as of this encounter Visit Diagnoses Not on filedocumented in this encounter Care Teams Internet Marketing Consultant Relationship Specialty Start Date End Date Royer Hidalgo MD PCP - General 04/25/16 09/14/16 Royer Hidalgo MD PCP - General 05/14/15 04/24/16 Priyanka Zepeda MD PCP - General 04/22/13 05/13/15 documented as of this encounter
--- OUTSIDE RECORDS SUMMARY | 2024-07-11 00:22 | XMS_ITS | Encounter Summary ---
Author Organization [facility] Address [address] [place] [address]. [place], [place] [address] [place] [address] Care Team Providers Care Seating Upholsterer Name Role Phone Royer Hidalgo MD Primary Care Provider [phone] Royer Hidalgo MD Primary Care Provider [phone] Priyanka Zepeda MD Primary Care Provider Unavailab le Encounter Details Date Type Department Care Team (Latest Contact Info) Description 08/04/2014 Abstract [facility] Medical Group Social History Tobacco Use Types Packs/Day Years Used Date Smoking Tobacco: Never Assessed Comments Unknown Sex and Gender Information Value Date Recorded Sex Assigned at Not on file Legal Sex Female 5:47 PM CDT Gender Identity Female 07/17/2022 10:27 AM BELT REPAIRER Sexual Orientation Straight 07/17/2022 10 :27 AM BELT REPAIRER documented as of this encounter Progress [...] Royer Hidalgo M.D.; Aug 04 2014 12:29PM BELT REPAIRER (Author) documented in this encounter Plan of Treatment Upcoming Encounters Date Type Department Care Team (Late st Contact Info) Description 07/25/2024 10:00 AM BELT REPAIRER Office Visit [facility] Medical Group Family & Internal Medicine [address] [address] Keyonna Armstrong APNP [address] [place] [address] 07/31/2024 10:15 AM BELT REPAIRER Office Visit [facility] [address] [place] [address] Pepe Mitchell MD [facility] [address] [place] [address] documented as of this encounter Visit Diagnoses Not on filedocumented in this encounter Care Teams Seating Upholsterer Relationship Specialty Start Date End Date Royer Hidalgo MD PCP - General 04/25/16 09/14/16 Royer Hdialgo MD PCP - General 05/14/15 04/24/16 Priyanka Zepeda MD PCP - General 04/22/13 05/13/15 documented as of this encounter
--- OUTSIDE RECORDS SUMMARY | 2024-07-11 00:22 | XMS_ITS | Encounter Summary ---
Author Organization [facility] Address Formerly [facility]. [place], [place] [address] [place] [address] Care Team Providers Care Export Administrator Name Role Phone Royer Hidalgo MD Primary Care Provider [phone] Royer Hidalgo MD Primary Care Provider [phone] Priyanka Zepeda MD Primary Care Provider Unavailab le Encounter Details Date Type Department Care Team (Latest Contact Info) Description 12/10/2013 Abstract [facility] , Claudia Gaines MD Social History Tobacco Use Types Packs/Day Years Used Date Smoking Tobacco: Never Assessed Comments Unknown Sex and Gender Information Value Date Recorded Sex Assigned at Not on file Legal Sex Female 5:47 PM CDT Gender Identity Female 07/17/2022 10:27 AM PARAPROFESSIONAL EDUCATION ASSISTANT Sexual Orientation Straight 07/17/2022 10 :27 AM PARAPROFESSIONAL EDUCATION ASSISTANT documented as of this encounter Progress Notes * Royer Hidalgo MD - 12/10/2013 4:04 PM CDT Message Recorded as Task Date: 12/09/2013 03:19 PM, Created By: System Task Name: Rx Renew Request Assigned To: [facility]- Nursing Team Regarding Patient: Kiera Evangelista, Status: Active Comment: System - 09 Dec 2013 3:19 PM PHARMACY: [employer] [facility] [id number] PATIENT: KIERA EVANGELISTA MEDICATION: LORAZEPAM 0.5 MG [...] Pt notified of above. Refill called to [facility] in [place] per pt request, pt aware Current Meds 1. Amitriptyline HCl - 50 MG Oral Tablet; TAKE 1 TABLET AT BEDTIME; Therapy: 22Qgk0954 to (Evaluate:77Nvc7424) Requested for: 84Qhg1595; Last Rx:57Tgt4941; Status: ACTIVE - Renewal Denied Ordered 2. Enpresse-28 Oral Tablet; Take 1 tablet daily as directed; Therapy: 30May2012 to (Evaluate:18Jun2014) Requested for: 03Imk6249; Last Rx:79Ziz8026 Ordered 3. Gas Relief CAPS; Therapy: (Recorded:23Sep2013) to Recorded 4. Hydrochlorothiazide 25 MG Oral Tablet; TAKE ONE TABLET BY MOUTH EVERY DAY; Therapy: 20May2012 to (Evaluate:41Qky6161) Requested for: 55Gqt1926; Last Rx:42Itp2715 Ordered 5. Hydrocodone-Acetaminophen 5-325 MG Oral Tablet; TAKE 1 TO 2 TABLETS EVERY 4 TO 6 HOURS NEEDED FOR PAIN. NO MORE THAN 8 TABLETS PER DAY; Therapy: 25Sep2013 to (Evaluate:27Sep2013); Last Rx:25Sep2013 Ordered 6. LORazepam 0.5 MG Oral Tablet; Take 1 tablet twice a day; Therapy: 35Dxa4566 to (Evaluate:83Cdk8903) Requested for: 41Eex2562; Last Rx:20Wzc2342 Ordered 7. MetFORMIN HCl - 500 MG Oral Tablet; Therapy: 24Dec2011 to Recorded 8. Multivitamins TABS; Therapy: (Recorded:23Sep2013) to Recorded 9. Pantoprazole Sodium 40 MG Oral Tablet Delayed Release; TAKE ONE TABLET BY MOUTH EVERY DAY; Therapy: 08Jun2012 to (Evaluate:16Axf7813) Requested for: 16Jun2013; Last Rx:16Jun2013 Ordered 10. [...] Royer Hidalgo M.D.; Dec 16 2013 7:41AM PARAPROFESSIONAL EDUCATION ASSISTANT (Author) Electronically signed by : Royer Hidalgo M.D.; Dec 16 2013 7:41AM PARAPROFESSIONAL EDUCATION ASSISTANT (Author) documented in this encounter Plan of Treatment Upcoming Encounters Date Type Department Care Team (Late st Contact Info) Description 07/25/2024 10:00 AM PARAPROFESSIONAL EDUCATION ASSISTANT Office Visit [facility] Family & Internal Medicine - [place] [address] [place] [address] Keyonna Armstrong APNP [address] [place] [address] 07/31/2024 10:15 AM PARAPROFESSIONAL EDUCATION ASSISTANT Office Visit [facility], [address] [address] Pepe Mitchell MD [address] [place] [address] documented as of this encounter Visit Diagnoses Not on filedocumented in this encounter Care Teams Export Administrator Relationship Specialty Start Date End Date Royer Hidalgo MD PCP - General 04/25/16 09/14/16 Royer Hidalgo MD PCP - General 05/14/15 04/24/16 Priyanka Zepeda MD PCP - General 04/22/13 05/13/15 documented as of this encounter
--- OUTSIDE RECORDS SUMMARY | 2024-07-11 00:22 | XMS_ITS | Encounter Summary ---
Author Organization [facility] Address [address] [place] [address]. [place], [place] [address] [place] [address] Care Team Providers Care Mural Painter Name Role Phone Royer Hidalgo MD Primary Care Provider [phone] Royer Hidalgo MD Primary Care Provider [phone] Priyanka Zepeda MD Primary Care Provider Unavailab le Encounter Details Date Type Department Care Team (Latest Contact Info) Description 08/18/2014 Abstract [facility] Royer Hidalgo MD [address] [facility] [place] [phone] Social History Tobacco Use Types Packs/Day Years Used Date Smoking Tobacco: Never Assessed Comments Unknown Sex and Gender Information Value Date Recorded Sex Assigned at Not on file Legal Sex Female 5:47 PM CDT Gender Identity Female 07/17/2022 10:27 AM CONCRETE POLISHER Sexual Orientation Straight 07/17/2022 10 :27 AM CONCRETE POLISHER documented as of this encounter Progress Notes [...] 2 week supply. I called and let [facility] know this, she then informed me that her insurance will not cover this or Lunesta. Her only options at this point is Ambien or Sonata. Pt informed of this and will just stick with the Ambien then. Signatures Electronically signed by : Royer Hidalgo M.D.; Aug 18 2014 5:42PM CONCRETE POLISHER (Author) * Royer Hidalgo MD - 08/18/2014 [...] zaleplon and its not working for her [phone] would like to try something different Marcella Gant - 17 Aug 2014 3:32 PM TASK REASSIGNED: Previously Assigned To [facility]- Nursing Team Royer Hidalgo - 17 Aug [...] BY MOUTH EVERY EVENING AT BEDTIME; Therapy: 10Bkw5574 to (Evaluate:16Nov2014) Requested for: 18Aug2014; Last Rx:18Aug2014 Ordered 2. Atenolol 50 MG Oral Tablet; TAKE 1 TABLET BY MOUTH TWICE A DAY NEEDED; Therapy: 16Nxl2628 to (Evaluate:30Dec2014) Requested for: 61Qtr1824; Last Rx:29Wyr4354 Ordered 3. Enpresse-28 Oral Tablet; Take 1 tablet daily as directed; Therapy: 30May2012 to (Evaluate:28Dec2014) Requested for: 15Jun2014; Last Rx:15Jun2014 Ordered 4. Hydrochlorothiazide 25 MG Oral Tablet; TAKE ONE TABLET BY MOUTH EVERY DAY; Therapy: 20May2012 to (Evaluate:30Dec2014) Requested for: 84Czv0238; Last Rx:07Wow9812 Ordered 5. Ibuprofen 800 MG Oral Tablet; TAKE 1 TABLET 3 TIMES DAILY WITH FOOD NEEDED for pain; Therapy: 11Aug2014 to (Evaluate:10Oct2014) Requested for: 11Aug2014; Last Rx:11Aug2014 Ordered 6. LORazepam 0.5 MG Oral Tablet; TAKE 1 TABLET BY MOUTH TWICE A DAY NEEDED; Therapy: 36Hqh8717 to (Evaluate:46Xuz0323) Requested for: 13Aug2014; Last Rx:13Aug2014 Ordered 7. MetFORMIN HCl - 500 MG Oral Tablet; TAKE 1 TABLET EVERY MORNING AND THEN TAKE 2 TABLETS AT BEDTIME; Therapy: 24Dec2011 to (Evaluate:56Sil5527) Requested for: 29Jul2014; Last Rx:29Jul2014 Ordered 8. Methocarbamol 750 MG Oral Tablet; TAKE 1 TO 2 TABLETS 3 TIMES DAILY NEEDED FOR MUSCLE SPASM; Therapy: 11Aug2014 to (Evaluate:21Aug2014) Requested for: 11Aug2014; Last Rx:11Aug2014 Ordered 9. Multivitamins TABS; Therapy: (Recorded:23Sep2013) to Recorded 10. Pantoprazole Sodium 40 MG Oral Tablet Delayed Release; TAKE ONE TABLET BY MOUTH EVERY DAY; Therapy: 08Jun2012 to (Evaluate:85Atl0894) Requested for: 83Fim1710; Last Rx:92Bga1956 Ordered 11. Polyethylene Glycol 3350 Oral Powder; MIX 1 CAPFUL (17GM) IN 8 OUNCES OF WATER, JUICE, OR TEA AND DRINK DAILY; Therapy: 57Ual0108 to (Evaluate:84Ama5142) Requested for: 17Cfk0484; Last Rx:42Vew8871 Ordered 12. Rozerem 8 MG Oral Tablet; TAKE 1/2 TO 1 TABLET AT BEDTIME NEEDED; Therapy: 18Aug2014 to (Evaluate:91Twt8981) Requested for: 18Aug2014; Last Rx:18Aug2014 Ordered 13. Venlafaxine HCl ER 75 MG Oral Capsule Extended Release 24 Hour; Take 1 capsule in am and 2 capsule in evening; Therapy: 13May2012 to (Evaluate:57Qtg1354) Requested for: 05Aug2014; Last Rx:05Aug2014 Ordered 14. Vitamin D3 1000 UNIT Oral Tablet; Therapy: (Recorded:23Sep2013) to Recorded 15. Zaleplon 5 MG Oral Capsule; TAKE 1-2 CAPSULES AT BEDTIME NEEDED; Therapy: 11Aug2014 to (Evaluate:10Oct2014); Last Rx:11Aug2014 Ordered Signatures Electronically signed by : Royer Hidalgo M.D.; Aug 18 2014 12:21PM CONCRETE POLISHER (Author) documented in this encounter Plan of Treatment Upcoming Encounters Date Type Department Care Team (Late st Contact Info) Description 07/25/2024 10:00 AM CONCRETE POLISHER Office Visit [facility] Family & Internal Medicine [facility] [address] [place] [address] Keyonna Armstrong APNP [address] [place] [address] 07/31/2024 10:15 AM CONCRETE POLISHER Office Visit [facility], [facility] [address] [place], [place] [phone] Pepe Mitchell MD Three [facility]. [facility] [address] [place] [address] documented as of this encounter Visit Diagnoses Not on filedocumented in this encounter Care Teams Mural Painter Relationship Specialty Start Date End Date Royer Hidalgo MD PCP - General 04/25/16 09/14/16 Royer Hidalgo MD PCP - General 05/14/15 04/24/16 Priyanka Zepeda MD PCP - General 04/22/13 05/13/15 documented as of this encounter
--- OUTSIDE RECORDS SUMMARY | 2024-07-11 00:22 | XMS_ITS | Encounter Summary ---
Author Organization [facility] Address [address] [place] [address]. [place], [place] [address] [place] [address] Care Team Providers Care Offset Second Press Operator Name Role Phone Royer Hidalgo MD Primary Care Provider [phone] Royer Hidalgo MD Primary Care Provider [phone] Priyanka Zepeda MD Primary Care Provider Unavailab le Encounter Details Date Type Department Care Team (Latest Contact Info) Description 08/14/2014 Abstract [facility] Social History Tobacco Use Types Packs/Day Years Used Date Smoking Tobacco: Never Assessed Comments Unknown Sex and Gender Information Value Date Recorded Sex Assigned at Not on file Legal Sex Female 5:47 PM CDT Gender Identity Female 07/17/2022 10:27 AM UNISAW OPERATOR Sexual Orientation Straight 07/17/2022 10 :27 AM UNISAW OPERATOR documented as of this encounter Progress [...] Anupama Maddox, ; Aug 14 2014 2:08PM UNISAW OPERATOR (Author) documented in this encounter Plan of Treatment Upcoming Encounters Date Type Department Care Team (Late st Contact Info) Description 07/25/2024 10:00 AM UNISAW OPERATOR Office Visit [facility] Family & Internal Medicine - [place] [address] [place] [address] Keyonna Armstrong APNP [address] [place] [address] 07/31/2024 10:15 AM UNISAW OPERATOR Office Visit [facility] THREE [facility], [facility] [address] [place] [address] Pepe Mitchell MD Three [facility]. [facility] [address] [place], [place] [address] documented as of this encounter Visit Diagnoses Not on filedocumented in this encounter Care Teams Offset Second Press Operator Relationship Specialty Start Date End Date Royer Hidalgo MD PCP - General 04/25/16 09/14/16 Royer Hidalgo MD PCP - General 05/14/15 04/24/16 Priyanka Zepeda MD PCP - General 04/22/13 05/13/15 documented as of this encounter
--- OUTSIDE RECORDS SUMMARY | 2024-07-11 00:22 | XMS_ITS | Encounter Summary ---
Author Organization [facility] Address [address] [place] [address]. [place], [place] [address] [place] [address] Care Team Providers Care Global Ceo Name Role Phone Royer Hidalgo MD Primary Care Provider [phone] Royer Hdialgo MD Primary Care Provider [phone] Priyanka Zepeda MD Primary Care Provider Unavailab le Encounter Details Date Type Department Care Team (Latest Contact Info) Description 12/18/2014 Abstract [facility] Social History Tobacco Use Types Packs/Day Years Used Date Smoking Tobacco: Never Assessed Comments Unknown Sex and Gender Information Value Date Recorded Sex Assigned at Not on file Legal Sex Female 5:47 PM CDT Gender Identity Female 07/17/2022 10:27 AM HUMAN SERVICES CARE SPECIALIST Sexual Orientation Straight 07/17/2022 10 :27 AM HUMAN SERVICES CARE SPECIALIST documented as of this encounter Progress [...] OK to switch and refill? Pharm phone: [phone] Royer Hidalgo - 18 Dec 2014 12:21 PM TASK EDITED Yes. Marcella Gant - 18 Dec 2014 12:58 PM TASK EDITED Called to [facility] in [place]. Current Meds 1. Amitriptyline HCl - 25 MG Oral Tablet; TAKE 1 TO 2 TABLETS BY MOUTH EVERY EVENING AT BEDTIME; Therapy: 52Irg8934 to (Evaluate:22Vod2644) Requested for: 18Aug2014; Last Rx:18Aug2014 Ordered 2. Atenolol 50 MG Oral Tablet; TAKE 1 TABLET BY MOUTH TWICE A DAY NEEDED; Therapy: 86Wtd7236 to (Evaluate:11Nle5719) Requested for: 55Qmf1505; Last Rx:47Kvd3873 Ordered 3. Enpresse-28 Oral Tablet; Take 1 tablet daily as directed; Therapy: 30May2012 to (Evaluate:28Dec2014) Requested for: 05Wrv5779; Last Rx:82Egx2986 Ordered 4. Hydrochlorothiazide 25 MG Oral Tablet; TAKE ONE TABLET BY MOUTH EVERY DAY; Therapy: 20May2012 to (Evaluate:30Dec2014) Requested for: 48Tju1021; Last Rx:32Pnv8523; Status: ACTIVE - Renewal Denied Ordered 5. Ibuprofen 800 MG Oral Tablet; TAKE 1 TABLET 3 TIMES DAILY WITH FOOD NEEDED for pain; Therapy: 11Aug2014 to (Evaluate:10Oct2014) Requested for: 11Aug2014; Last Rx:11Aug2014 Ordered 6. LORazepam 0.5 MG Oral Tablet; TAKE 1 TABLET BY MOUTH TWICE A DAY NEEDED; Therapy: 88Btt2270 to (Evaluate:14Jan2015) Requested for: 12Umf4211; Last Rx:15Vmi0406 Ordered 7. MetFORMIN HCl - 500 MG Oral Tablet; TAKE 1 TABLET EVERY MORNING AND THEN TAKE 2 TABLETS AT BEDTIME; Therapy: 24Dec2011 to (Evaluate:44Rqv6493) Requested for: 29Jul2014; Last Rx:29Jul2014 Ordered 8. Methocarbamol 750 MG Oral Tablet; TAKE 1 TO 2 TABLETS 3 TIMES DAILY NEEDED FOR MUSCLE SPASM; Therapy: 11Aug2014 to (Evaluate:79Djr4362) Requested for: 28Vbd6004; Last Rx:00Rpc3207 Ordered 9. Multivitamins TABS; Therapy: (Recorded:23Sep2013) to Recorded 10. Pantoprazole Sodium 40 MG Oral Tablet Delayed Release; TAKE ONE TABLET BY MOUTH EVERY DAY; Therapy: 28Osc3855 to (Evaluate:21Kmg1355) Requested for: 66Wyo0306; Last Rx:89Npx0553 Ordered 11. Polyethylene Glycol 3350 Oral Powder; MIX 1 CAPFUL (17GM) IN 8 OUNCES OF WATER, JUICE, OR TEA AND DRINK DAILY; Therapy: 86Pcl4442 to (Evaluate:56Kfx5971) Requested for: 76Quw1787; Last Rx:01Car7239 Ordered 12. Venlafaxine HCl ER 75 MG Oral Capsule Extended Release 24 Hour; Take 1 capsule in am and 2 capsule in evening; Therapy: 17Wqh5046 to (Evaluate:79Jed7101) Requested for: 05Aug2014; Last Rx:05Aug2014 Ordered 13. Vitamin D3 1000 UNIT Oral Tablet; Therapy: (Recorded:23Sep2013) to Recorded 14. Zolpidem Tartrate 10 MG Oral Tablet; TAKE 1 TABLET AT BEDTIME NEEDED FOR SLEEP; Therapy: 87Zuv4605 to (Evaluate:17Jan2015); Last Rx:19Otr1755 Ordered Signatures Electronically signed by : Royer Hidalgo M.D.; Dec 18 2014 1:06PM HUMAN SERVICES CARE SPECIALIST (Author) documented in this encounter Plan of Treatment Upcoming Encounters Date Type Department Care Team (Late st Contact Info) Description 07/25/2024 10:00 AM HUMAN SERVICES CARE SPECIALIST Office Visit [facility] Family & Internal Medicine - [place] [address] [place] [address] Keyonna Armstrong APNP [address] [place] [address] 07/31/2024 10:15 AM HUMAN SERVICES CARE SPECIALIST Office [facility] [place] [address] [place], [place] [id number] Pepe Mitchell MD Three [facility]. [place] [address] [place], [place] [id number] documented as of this encounter Visit Diagnoses Not on filedocumented in this encounter Care Teams Global Ceo Relationship Specialty Start Date End Date Royer Hidalgo MD PCP - General 04/25/16 09/14/16 Royer Hidalgo MD PCP - General 05/14/15 04/24/16 Priyanka Zepeda MD PCP - General 04/22/13 05/13/15 documented as of this encounter
--- OUTSIDE RECORDS SUMMARY | 2024-07-11 00:22 | XMS_ITS | Encounter Summary ---
Author Organization [facility] Address [address] [place] [address]. [place], [place] [address] [place] [address] Care Team Providers Care Books Salesperson Name Role Phone Royer Hidalgo MD Primary Care Provider [phone] Royer Hidalgo MD Primary Care Provider [phone] Priyanka Zepeda MD Primary Care Provider Unavailab le Encounter Details Date Type Department Care Team (Late st Contact Info) Description 02/12/2015 Abstract [facility] Family Medicine - [address] [address] Royer Hidalgo MD [address] [place] [address] Social History Tobacco Use Types Packs/Day Years Used Date Smoking Tobacco: Never Assessed Comments Unknown Sex and Gender Information Value Date Recorded Sex Assigned at Not on file Legal Sex Female 5:47 PM CDT Gender Identity Female 07/17/2022 10:27 AM LOSS MITIGATION SPECIALIST Sexual Orientation Straight 07/17/2022 10 :27 AM LOSS MITIGATION SPECIALIST documented as of this encounter Last [...] BY MOUTH TWICE A DAY NEEDED; Therapy: 16Adk0948 to (Evaluate:09Jun2015) Requested for: 83Fjb3164; Last Rx:13Hun9404 Ordered 2. Enpresse-28 Oral Tablet; TAKE 1 TABLET BY MOUTH EVERY DAY; Therapy: 30May2012 to (Evaluate:75Ycy1878) Requested for: 59Kug9136; Last Rx:67Cwi5367 Ordered 3. Hydrochlorothiazide 25 MG Oral Tablet; TAKE ONE TABLET BY MOUTH EVERY DAY; Therapy: 20May2012 to (Evaluate:55Azw1629) Requested for: 28Dec2014; Last Rx:28Dec2014 Ordered 4. Ibuprofen 800 MG Oral Tablet; TAKE 1 TABLET 3 TIMES DAILY WITH FOOD NEEDED for pain; Therapy: 11Aug2014 to (Evaluate:10Oct2014) Requested for: 11Aug2014; Last Rx:11Aug2014 Ordered 5. LORazepam 0.5 MG Oral Tablet; TAKE 1 TABLET BY MOUTH TWICE A DAY NEEDED; Therapy: 49Ezl6560 to (Evaluate:72Awb4941) Requested for: 19Jan2015; Last Rx:41Yod7656; Status: ACTIVE - Renewal Denied Ordered 6. MetFORMIN HCl - 500 MG Oral Tablet; TAKE 1 TABLET EVERY MORNING AND THEN TAKE 2 TABLETS AT BEDTIME; Therapy: 24Dec2011 to (Evaluate:69Cfv2070) Requested for: 76Fer7197; Last Rx:73Ifr9336 Ordered 7. Methocarbamol 750 MG Oral Tablet; TAKE 1 TO 2 TABLETS 3 TIMES DAILY NEEDED FOR MUSCLE SPASM; Therapy: 11Aug2014 to (Evaluate:56Ycn9208) Requested for: 74Mvk9136; Last Rx:77Qgo8581 Ordered 8. Multivitamins TABS; Therapy: (Recorded:23Sep2013) to Recorded 9. Pantoprazole Sodium 40 MG Oral Tablet Delayed Release; TAKE ONE TABLET BY MOUTH EVERY DAY; Therapy: 08Jun2012 to (Evaluate:24Dec2015) Requested for: 29Dec2014; Last Rx:29Dec2014 Ordered 10. Polyethylene Glycol 3350 Oral Powder; MIX 1 CAPFUL (17GM) IN 8 OUNCES OF WATER, JUICE, OR TEA AND DRINK DAILY; Therapy: 53Arg6661 to (Evaluate:64Ayv9121) Requested for: 39Vjr9242; Last Rx:28Sln4234 Ordered 11. Venlafaxine HCl ER 75 MG Oral Capsule Extended Release 24 Hour; TAKE ONE CAPSULE BY MOUTH EVERY MORNING AND 2 CAPSULES EVERY EVENING; Therapy: 13May2012 to (Evaluate:29Apr2015) Requested for: 11Aoj0729; Last Rx:53Fkl9231 Ordered 12. Vitamin D3 1000 UNIT Oral [...] Rx Called into [facility] - /tjt Called into [facility] - /tjt Called into [facility] /tjt Called in to [facility] /tjt Called in to [facility] - [place] /tjt Depression 2. From Venlafaxine [...] Exact Date; Requested for:Approx 15Aug2015; Perform:In Office; Due:88Wxx9213;Ordered; For:Hypertension, Type 2 diabetes mellitus; Ordered By:Royer Hidalgo; 4. CBC W Differential; Status:Hold For - Exact Date,Manual Activation; Requested for:Approx 15Aug2015; [facility]; Due:67Brs7223;Ordered; For:Hypertension, Type 2 diabetes mellitus; Ordered By:Royer Hidalgo; 5. Compr Metabolic Prof ( CMP ); Status:Hold For - Exact Date,Manual Activation; Requested for:Approx 15Aug2015; Perform:[facility]; Due:03Nei6575;Ordered; For:Hypertension, Type 2 diabetes mellitus; Ordered By:Royer Hidalgo; 6. Lipid W Reflex DLDL; Status:Hold For - Exact Date,Manual Activation; Requested for:Approx 15Aug2015; Perform[facility] [employer] [facility]; Due:99Qti5955;Ordered; For:Hypertension, Type 2 diabetes mellitus; Ordered By:Royer Hidalgo; 7. TSH W Reflex Free T4; Status:Hold For - Exact Date,Manual Activation; Requested for:Approx 15Aug2015; Perform:[facility]; Due:18Szb4127;Ordered; For:Hypertension, Type 2 diabetes mellitus; Ordered By:Royer Hidalgo; Type 2 diabetes mellitus 8. MetFORMIN HCl - 500 MG Oral Tablet Rx By: Royer Hidalgo; Dispense: 90 Days ; #:90 TAB; Refill: 0; For: Type 2 diabetes mellitus; TEX = N; Sent To: [id number] 9. MetFORMIN HCl ER 500 MG Oral Tablet Extended Release 24 Hour; TAKE 3 TABLETS EVERY MORNING WITH BREAKFAST Rx By: Royer Hidalgo; Dispense: 0 Days ; #:90 Tablet Extended Release 24 Hour; Refill: 5; For: Type 2diabetes mellitus; TEX = N; Record Signatures Electronically signed by : Royer Hidalgo M.D.; Feb 12 2015 12:34PM LOSS MITIGATION SPECIALIST (Author) documented in this encounter Plan of Treatment Upcoming Encounters Date Type Department Care Team (Late st Contact Info) Description 07/25/2024 10:00 AM LOSS MITIGATION SPECIALIST Office Visit [facility] Family & Internal Medicine - [address] [address] Keyonna Armstrong APNP [address] [place] [address] 07/31/2024 10:15 AM LOSS MITIGATION SPECIALIST Office Visit [facility] [address] [place] [address] Pepe Mitchell MD Three [facility]. [facility] [address] [place], [place] [phone] documented as of this encounter Visit Diagnoses Not on filedocumented in this encounter Care Teams Books Salesperson Relationship Specialty Start Date End Date Royer Hidalgo MD PCP - General 04/25/16 09/14/16 Royer Hidalgo MD PCP - General 05/14/15 04/24/16 Priyanka Zepeda MD PCP - General 04/22/13 05/13/15 documented as of this encounter
--- OUTSIDE RECORDS SUMMARY | 2024-07-11 00:22 | XMS_ITS | Encounter Summary ---
Author Organization [facility] Address [facility] [address]. [place], [place] [address] [place] [address] Care Team Providers Care Auto Tune Up Mechanic Name Role Phone Royer Hidalgo MD Primary Care Provider [phone] Royer Hidalgo MD Primary Care Provider [phone] Priyanka Zepeda MD Primary Care Provider Unavailab le Encounter Details Date Type Department Care Team (Latest Contact Info) Description 04/16/2014 Abstract [facility] Royer Hidalgo MD [address] [facility] [place] [address] Social History Tobacco Use Types Packs/Day Years Used Date Smoking Tobacco: Never Assessed Comments Unknown Sex and Gender Information Value Date Recorded Sex Assigned at Not on file Legal Sex Female 5:47 PM CDT Gender Identity Female 07/17/2022 10:27 AM ACUTE CARE REGISTERED NURSE Sexual Orientation Straight 07/17/2022 10 :27 AM ACUTE CARE REGISTERED NURSE documented as of this encounter Plan of Treatment Upcoming Encounters Date Type Department Care Team (Late st Contact Info) Description 07/25/2024 10:00 AM ACUTE CARE REGISTERED NURSE Office Visit [facility] Family & Internal Medicine [facility] [address] [place] [address] Keyonna Armstrong APNP [address] [place] [address] 07/31/2024 10:15 AM ACUTE CARE REGISTERED NURSE Office Visit [facility], [address] [address] Pepe Mitchell MD [facility] [place] [address] [place] [address] documented as of this encounter Visit Diagnoses Not on filedocumented in this encounter Care Teams Auto Tune Up Mechanic Relationship Specialty Start Date End Date Royer Hidalgo MD PCP - General 04/25/16 09/14/16 Royer Hidalgo MD PCP - General 05/14/15 04/24/16 Priyanka Zepeda MD PCP - General 04/22/13 05/13/15 documented as of this encounter
--- OUTSIDE RECORDS SUMMARY | 2024-07-11 00:22 | XMS_ITS | Encounter Summary ---
Author Organization [facility] Address [address] [place] [address]. [place], [place] [address] [place] [address] Care Team Providers Care Ash Pit Worker Name Role Phone Royer Hidalgo MD Primary Care Provider [phone] Royer Hidalgo MD Primary Care Provider [phone] Priyanka Zepeda MD Primary Care Provider Unavailab le Encounter Details Date Type Department Care Team (Late st Contact Info) Description 07/03/2014 Abstract [facility] Family Medicine - [address] [address] Royer Hidalgo MD [address] [facility] [place] [address] Social History Tobacco Use Types Packs/Day Years Used Date Smoking Tobacco: Never Assessed Comments Unknown Sex and Gender Information Value Date Recorded Sex Assigned at Not on file Legal Sex Female 5:47 PM CDT Gender Identity Female 07/17/2022 10:27 AM FRONT LOAD TRASH TRUCK DRIVER Sexual Orientation Straight 07/17/2022 10 :27 AM FRONT LOAD TRASH TRUCK DRIVER documented as of this encounter Last Filed Vital Signs Vital Sign Reading Time Taken Comments Blood Pressure 174/99 07/03/2014 11:32 AM FRONT LOAD TRASH TRUCK DRIVER Pulse 97 07/03/2014 11:32 AM FRONT LOAD TRASH TRUCK DRIVER Temperature - - Respiratory Rate - - Oxygen Saturation - - Inhaled Oxygen Concentration - - Weight 129.2 kg (284 lb 14.4 oz) 2013 11:32 AM FRONT LOAD TRASH TRUCK DRIVER Height 167.6 cm (5' 6) 07/03/2014 11:3 2 AM FRONT LOAD TRASH TRUCK DRIVER Body Mass Index 45.98 07/03/2014 11:32 AM FRONT LOAD TRASH TRUCK DRIVER documented in this encounter Progress Notes * [...] several months. She has been taking bisacodyl [id number] as needed. She has not had any [...] Tablet; TAKE 1 TABLET AT BEDTIME; Therapy: 84Yks4392 to (Evaluate:22Aug2014) Requested for: 44Eyg5251; Last Rx:[id number] Ordered 2. Atenolol 50 MG Oral Tablet; TAKE 1 TABLET BY MOUTH TWICE A DAY NEEDED; Therapy: 70Oag1467 to (Evaluate:29Dec2014) Requested for: 47Gbb4299; Last Rx:[id number] Ordered 3. Enpresse-28 Oral Tablet; Take 1 tablet daily as directed; Therapy: 30May2012 to (Evaluate:28Dec2014) Requested for: 15Jun2014; Last Rx:15Jun2014 Ordered 4. Hydrochlorothiazide 25 MG Oral Tablet; TAKE ONE TABLET BY MOUTH EVERY DAY; Therapy: 20May2012 to (Evaluate:17Aug2014) Requested for: 73Njo0548; Last Rx:[id number] Ordered 5. LORazepam 0.5 MG Oral Tablet; Take 1 tablet twice a day; Therapy: 19Opg6837 to (Evaluate:81Bpq2358) Requested for: 15Jun2014; Last Rx:[id number] Ordered 6. MetFORMIN HCl - 500 MG Oral Tablet; TAKE 1 TABLET EVERY MORNING AND THEN TAKE 2 TABLETS AT BEDTIME; Therapy: 24Dec2011 to (Evaluate:14Jun2014) Requested for: 36Wyk4362; Last Rx:[id number] Ordered 7. Multivitamins TABS; Therapy: (Recorded:23Sep2013) to Recorded 8. Pantoprazole Sodium 40 MG Oral Tablet Delayed Release; TAKE ONE TABLET BY MOUTH EVERY DAY; Therapy: 08Jun2012 to (Evaluate:49Lkj8069) Requested for: 10Cpy5817; Last Rx:[id number] Ordered 9. Venlafaxine HCl ER 75 MG Oral Capsule Extended Release 24 Hour; Take 1 capsule in am and 2 capsule in evening; Therapy: 13May2012 to (Evaluate:13Aug2014) Requested for: 18Aug2013; Last Rx:[id number] Ordered 10. Vitamin D3 1000 UNIT Oral Tablet; Therapy: (Recorded:23Sep2013) to Recorded 11. Zolpidem Tartrate ER 12.5 MG Oral Tablet Extended Release (Ambien CR); TAKE ONE TABLET BY MOUTH AT BEDTIME NEEDED FOR SLEEP; Therapy: 01Dec2013 to (Evaluate:29Jul2014) Requested for: 37Pvd7218; Last Rx:[id number] Ordered Allergies 1. No Known Drug Allergies Immunizations Influenza --- Series1: 19Jun2012 Vitals Recorded by : Marcella Gant at 89Oqk9163 11:32AM Heart Rate 97 Respiration 16 Systolic [...] Constipation; TEX = N; Verified Transmission to [facility]Y #2510; Last Updated By: Eataly Net; 07/03/2014 12:05:53 PM Hypertension 2. Renew: Atenolol 50 MG Oral Tablet; TAKE 1 TABLET BY MOUTH TWICE A DAY NEEDED Rx By: Royer Hidalgo; Dispense: 90 Days ; #:180 Tablet; Refill: 1; For: Hypertension; TEX = N; Verified Transmission to [facility]/PHARMACY #2510; Last Updated By: Eataly Net; 07/03/2014 12:05:54 PM 3. Renew: Hydrochlorothiazide 25 MG Oral Tablet; TAKE ONE TABLET BY MOUTH EVERY DAY Rx By: Royer Hidalgo; Dispense: 90 Days ; #:90 Tablet; Refill: 1; For: Hypertension; TEX = N; VerifiedTransmission to [facility] #2510; Last Updated By: Eataly Net; 07/03/2014 12:05:53 PM Insomnia 4. Stop: Amitriptyline HCl - 25 MG Oral Tablet Rx By: Royer Hidalgo; Dispense: 30 Days ; #:30 Tablet; Refill: 5; For: Insomnia; TEX = N; Sent To: [facility]/PHARMACY #2510 5. Start: Nortriptyline HCl - 25 MG Oral Capsule; TAKE 1 TO 3 CAPSULES AT BEDTIME NEEDED Rx By: Royer Hidalgo; Dispense: 20 Days ; #:60 Capsule; Refill: 5; For: Insomnia; TEX = N; Verified Transmission to [facility]/PHARMACY #2510; Last Updated By: Eataly Net; 07/03/2014 12:05:54 PM Discussion/Summary #1 Diabetes: Continue [...] Royer Hidalgo M.D.; Jul 03 2014 1:51PM FRONT LOAD TRASH TRUCK DRIVER (Author) documented in this encounter Plan of Treatment Upcoming Encounters Date Type Department Care Team (Late st Contact Info) Description 07/25/2024 10:00 AM FRONT LOAD TRASH TRUCK DRIVER Office Visit [facility] Family & Internal Medicine [address] [address] Keyonna Armstrong APNP [address] [place] [address] 07/31/2024 10:15 AM FRONT LOAD TRASH TRUCK DRIVER Office Visit [facility] [address] [place], [place] [address] Pepe Mitchell MD [facility]. [facility] [address] [place], [place] [address] documented as of this encounter Visit Diagnoses Not on filedocumented in this encounter Care Teams Ash Pit Worker Relationship Specialty Start Date End Date Royer Hidalgo MD PCP - General 04/25/16 09/14/16 Royer Hidalgo MD PCP - General 05/14/15 04/24/16 Priyanka Zepeda MD PCP - General 04/22/13 05/13/15 documented as of this encounter
--- OUTSIDE RECORDS SUMMARY | 2024-07-11 00:22 | XMS_ITS | Encounter Summary ---
Author Organization [facility] Address [facility]. [place], [place] [address] [place] [address] Care Team Providers Care Slip Presser Name Role Phone Royer Hidalgo MD Primary Care Provider [phone] Royer Hidalgo MD Primary Care Provider [phone] Priyanka Zepeda MD Primary Care Provider Unavailab le Encounter Details Date Type Department Care Team (Latest Contact Info) Description 02/23/2014 Abstract [facility] Social History Tobacco Use Types Packs/Day Years Used Date Smoking Tobacco: Never Assessed Comments Unknown Sex and Gender Information Value Date Recorded Sex Assigned at Not on file Legal Sex Female 5:47 PM CDT Gender Identity Female 07/17/2022 10:27 AM BURGLARY INVESTIGATOR Sexual Orientation Straight 07/17/2022 10 :27 AM BURGLARY INVESTIGATOR documented as of this encounter Progress Notes * Generic Conversion MD Marti - 02/23/2014 9:17 AM CDT Message Recorded as Task Date: 02/13/2014 02:27 PM, Created By: Vicki Mcgill Task Name: Miscellaneous Assigned To: [facility]- Nursing Team Regarding Patient: Veronica Evangelista, [...] get [facility]acy[facility] [place] Royer iHdalgo - 13 Feb 2014 2:58 PM TASK [...] EDITED LMOM regarding refilling the Amitriptyline at [facility] in [place], and she could go pick it up. Patient never picked up medicine from [facility], and I did verify this with them. Plan 1. Renew: Amitriptyline HCl - 25 MG Oral Tablet; TAKE 1 TABLET AT BEDTIME Signatures Electronically signed by : Brandie Bronson R.N.; Feb 23 2014 9:20AM BURGLARY INVESTIGATOR (Author) documented in this encounter Plan of Treatment Upcoming Encounters Date Type Department Care Team (Late st Contact Info) Description 07/25/2024 10:00 AM BURGLARY INVESTIGATOR Office Visit [facility] Family & Internal Medicine - [place] [address] [place] [address] Keyonna Armstrong APNP [address] [place] [address] 07/31/2024 10:15 AM BURGLARY INVESTIGATOR Office Visit [facility], [address] [address] Pepe Mitchell MD [place] [address] [place] [address] documented as of this encounter Visit Diagnoses Not on filedocumented in this encounter Care Teams Slip Presser Relationship Specialty Start Date End Date Royer Hidalgo MD PCP - General 04/25/16 09/14/16 Royer Hidalgo MD PCP - General 05/14/15 04/24/16 Priyanka Zepeda MD PCP - General 04/22/13 05/13/15 documented as of this encounter
--- OUTSIDE RECORDS SUMMARY | 2024-07-11 00:22 | XMS_ITS | Encounter Summary ---
Author Organization [facility] Address [address] [place] [address]. [place], [place] [address] [place] [address] Care Team Providers Care Eye Surgeon Name Role Phone Royer Hidalgo MD Primary Care Provider [phone] Royer Hidalgo MD Primary Care Provider [phone] Priyanka Zepeda MD Primary Care Provider Unavailab le Encounter Details Date Type Department Care Team (Late st Contact Info) Description 08/11/2014 Abstract [facility] [address] [place] [address] Royer Hidalgo MD [address] [facility] [place] [address] Social History Tobacco Use Types Packs/Day Years Used Date Smoking Tobacco: Never Assessed Comments Unknown Sex and Gender Information Value Date Recorded Sex Assigned at Not on file Legal Sex Female 5:47 PM CDT Gender Identity Female 07/17/2022 10:27 AM ARTIST SCIENTIFIC Sexual Orientation Straight 07/17/2022 10 :27 AM ARTIST SCIENTIFIC documented as of this encounter Plan of Treatment Upcoming Encounters Date Type Department Care Team (Late st Contact Info) Description 07/25/2024 10:00 AM ARTIST SCIENTIFIC Office Visit [facility] Family & Internal Medicine [address] [address] Keyonna Armstrong APNP [address] [place] [address] 07/31/2024 10:15 AM ARTIST SCIENTIFIC Office Visit [facility], [place] [address] [place] [address] Pepe Mitchell MD [facility]. [place] [address] [place] [address] documented as of this encounter Visit Diagnoses Diagnosis Examination Unspecified examination documented in this encounter Care Teams Eye Surgeon Relationship Specialty Start Date End Date Royer Hidalgo MD PCP - General 04/25/16 09/14/16 Royer Hidalgo MD PCP - General 05/14/15 04/24/16 Priyanka Zepeda MD PCP - General 04/22/13 05/13/15 documented as of this encounter
--- OUTSIDE RECORDS SUMMARY | 2024-07-11 00:23 | XMS_ITS | Encounter Summary ---
Author Organization [facility] Address [facility]. [place], [place] [address] [place] [address] Care Team Providers Care Store Clerk Name Role Phone Royer Hidalgo MD Primary Care Provider [phone] Royer Hidalgo MD Primary Care Provider [phone] Priyanka Zepeda MD Primary Care Provider Unavailab le Priyanka Zepeda MD Primary Care Provider Unavailab le Encounter Details Date Type Department Care Team (Latest Contact Info) Description 02/19/[address] [facility] Medical Group Social History Tobacco Use Types Packs/Day Years Used Date Smoking Tobacco: Never Assessed Comments Unknown Sex and Gender Information Value Date Recorded Sex Assigned at Not on file Legal Sex Female 5:47 PM CDT Gender Identity Female 07/17/2022 10:27 AM HOME AID Sexual Orientation Straight 07/17/2022 10 :27 AM HOME AID documented as of this encounter Progress Notes * Generic Conversion MD Marti - 02/19/2013 2:26 PM CDT Message Recorded as Task Date: 02/19/2013 11:15 AM, Created By: Tiffanie Zhou Task Name: Medical Complaint Callback Assigned To: [facility] Team Katelyn Regarding Patient: Veronica Evangelista, Status: [...] AT BEDTIME NEEDED FOR SLEEP; Therapy: to (Evaluate:88Jjq6764); Last Rx:[id number] Signatures Electronically signed by : Demetra Delcid, ; Feb 19 2013 2:27PM (Author) AID documented in this encounter Plan of Treatment Upcoming Encounters Date Type Department Care Team (Late st Contact Info) Description 07/25/2024 10:00 AM HOME AID Office Visit [facility] Medical [facility] Family & Internal Medicine - [address] [address] Keyonna Armstrong APNP [address] [place] [address] 07/31/2024 10:15 AM HOME AID Office Visit [facility], [facility] [address] [place] [address] Pepe Mitchell MD Three [facility]. [facility] [address] [place] [address] documented as of this encounter Visit Diagnoses Not on filedocumented in this encounter Care Teams Store Clerk Relationship Specialty Start Date End Date Royer Hidalgo MD PCP - General 04/25/16 09/14/16 Royer Hidalgo MD PCP - General 05/14/15 04/24/16 Priyanka Zepeda MD PCP - General 04/22/13 05/13/15 Priyanka Zepeda MD PCP - General 10/28/12 04/21/13 documented as of this encounter
--- OUTSIDE RECORDS SUMMARY | 2024-07-11 00:23 | XMS_ITS | Encounter Summary ---
Author Organization [facility] Address [address] [place] [address]. [place], [place] [address] [place] [address] Care Team Providers Care Paraplanner Name Role Phone Royer Hidalgo MD Primary Care Provider [phone] Royer Hidalgo MD Primary Care Provider [phone] Priyanka Zepeda MD Primary Care Provider Unavailab le Encounter Details Date Type Department Care Team (Latest Contact Info) Description 12/02/2013 Abstract [facility] Medical Group Priyanka Zepeda MD Social History Tobacco Use Types Packs/Day Years Used Date Smoking Tobacco: Never Assessed Comments Unknown Sex and Gender Information Value Date Recorded Sex Assigned at Not on file Legal Sex Female 5:47 PM CDT Gender Identity Female 07/17/2022 10:27 AM COOLING MACHINE OPERATOR Sexual Orientation Straight 07/17/2022 10 :27 AM COOLING MACHINE OPERATOR documented as of this encounter Progress Notes * Royer Hidalgo MD - 12/02/2013 1:25 PM CDT Message Recorded as Task Date: 12/02/2013 11:23 AM, Created By: Vicki Mcgill Task Name: Miscellaneous Assigned To: [facility]- Nursing Team Regarding Patient: Veronica Evangelista, Status: Active Comment: Vicki Mcgill - 02 Dec 2013 11:23 AM TASK CREATED Caller: Self; Other; Pt said the [facility] that Zolpidem 12.5 was called into is out of RX for a few days. [facility] [place] [address], Please Marcella Gant - 02 Dec 2013 1:25 PM TASK EDITED Spoke with Lori at [facility], they did not have enough of the med to fill entire script-pt did not receive any from them. Med called to [facility] per pt request. Current Meds 1. Enpresse-28 Oral Tablet; TAKE 1 TABLET DAILY DIRECTED; Therapy: 30May2012 to (Evaluate:22Dec2013) Requested for: 63Fjg0380; Last Rx:09Jun2013; Status: ACTIVE - Renewal Denied Ordered 2. Gas Relief CAPS; Therapy: (Recorded:23Sep2013) to Recorded 3. Hydrochlorothiazide 25 MG Oral Tablet; TAKE ONE TABLET BY MOUTH EVERY DAY; Therapy: 20May2012 to (Evaluate:58Tmo6135) Requested for: 52Cvq6574; Last Rx:[id number] Ordered 4. Hydrocodone-Acetaminophen 5-325 MG Oral Tablet; TAKE 1 TO 2 TABLETS EVERY 4 TO 6 HOURS NEEDED FOR PAIN. NO MORE THAN 8 TABLETS PER DAY; Therapy: 25Sep2013 to (Evaluate:27Sep2013); Last Rx:25Sep2013 Ordered 5. LORazepam 0.5 MG Oral Tablet; Take 1 tablet twice a day; Therapy: 83Lom9865 to (Evaluate:10Dec2013) Requested for: 10Nov2013; Last Rx:[id number] Ordered 6. MetFORMIN HCl - 500 MG Oral Tablet; Therapy: 24Dec2011 to Recorded 7. Multivitamins TABS; Therapy: (Recorded:23Sep2013) to Recorded 8. Pantoprazole Sodium 40 MG Oral Tablet Delayed Release; TAKE ONE TABLET BY MOUTH EVERY DAY; Therapy: 08Jun2012 to (Evaluate:18Bkm7079) Requested for: 16Jun2013; Last Rx:16Jun2013 Ordered 9. [...] TABLET AT BEDTIME NEEDED FOR SLEEP; Therapy: 71Cci5210 to (Evaluate:31Dec2013); Last Rx:[id number] Ordered Signatures Electronically signed by : Royer Hidalgo M.D.; Dec 02 2013 1:27PM COOLING MACHINE OPERATOR (Author) ING MACHINE OPERATOR documented in this encounter Plan of Treatment Upcoming Encounters Date Type Department Care Team (Late st Contact Info) Description 07/25/2024 10:00 AM COOLING MACHINE OPERATOR Office Visit [facility] Medical Group Family & Internal Medicine [address] [address] Keyonna Armstrong APNP [address] [place] [address] 07/31/2024 10:15 AM COOLING MACHINE OPERATOR Office Visit [facility] [address] [place], [place] [address] Pepe Mitchell MD [facility]. [facility] [address] [place], [place] [address] documented as of this encounter Visit Diagnoses Not on filedocumented in this encounter Care Teams Paraplanner Relationship Specialty Start Date End Date Royer Hidalgo MD PCP - General 04/25/16 09/14/16 Royer Hidalgo MD PCP - General 05/14/15 04/24/16 Priyanka Zepeda MD PCP - General 04/22/13 05/13/15 documented as of this encounter
--- OUTSIDE RECORDS SUMMARY | 2024-07-11 00:23 | XMS_ITS | Encounter Summary ---
Author Organization [facility] Address [facility]6 [facility]. [place], [place] [address] [place] [address] Care Team Providers Care Anvil Seating Press Operator Name Role Phone Royer Hidalgo MD Primary Care Provider [phone] Royer Hidalgo MD Primary Care Provider [phone] Priyanka Zepeda MD Primary Care Provider Unavailab le Encounter Details Date Type Department Care Team (Latest Contact Info) Description 09/26/2013 Abstract [facility] Medical Group Social History Tobacco Use Types Packs/Day Years Used Date Smoking Tobacco: Never Assessed Comments Unknown Sex and Gender Information Value Date Recorded Sex Assigned at Not on file Legal Sex Female 5:47 PM CDT Gender Identity Female 07/17/2022 10:27 AM IMMUNOLOGY SPECIALIST Sexual Orientation Straight 07/17/2022 10 :27 AM IMMUNOLOGY SPECIALIST documented as of this encounter Plan of Treatment Upcoming Encounters Date Type Department Care Team (Late st Contact Info) Description 07/25/2024 10:00 AM IMMUNOLOGY SPECIALIST Office Visit [facility] Family & Internal Medicine [facility] [address] [place] [address] Keyonna Armstrong APNP [address] [place] [address] 07/31/2024 10:15 AM IMMUNOLOGY SPECIALIST Office Visit [facility] [address] [place], [place] [phone] Pepe Mitchell MD [facility]. [place] [address] [place], [place] [address] documented as of this encounter Visit Diagnoses Not on filedocumented in this encounter Care Teams Anvil Seating Press Operator Relationship Specialty Start Date End Date Royer Hidalgo MD PCP - General 04/25/16 09/14/16 Royer Hidalgo MD PCP - General 05/14/15 04/24/16 Priyanka Zepeda MD PCP - General 04/22/13 05/13/15 documented as of this encounter
--- OUTSIDE RECORDS SUMMARY | 2024-07-11 00:23 | XMS_ITS | Encounter Summary ---
Author Organization [facility] Address [address] [place] [address]. [place], [place] [address] [place] [address] Care Team Providers Care Cone Sewer Name Role Phone Royer Hidalgo MD Primary Care Provider [phone] Royer Hidalgo MD Primary Care Provider [phone] Priyanka Zepeda MD Primary Care Provider Unavailab le Encounter Details Date Type Department Care Team (Late st Contact Info) Description 09/25/2013 Abstract [facility] Family Medicine - [address] [phone] Royer Hidalgo MD [address] [facility] [place] [address] Social History Tobacco Use Types Packs/Day Years Used Date Smoking Tobacco: Never Assessed Comments Unknown Sex and Gender Information Value Date Recorded Sex Assigned at Not on file Legal Sex Female 5:47 PM CDT Gender Identity Female 07/17/2022 10:27 AM TAPE SEWING MACHINE OPERATOR Sexual Orientation Straight 07/17/2022 10 :27 AM TAPE SEWING MACHINE OPERATOR documented as of this encounter Last Filed Vital Signs Vital Sign Reading Time Taken Comments Blood Pressure 134/87 09/25/2013 2:00 PM TAPE SEWING MACHINE OPERATOR Pulse 89 09/25/2013 2:00 PM TAPE SEWING MACHINE OPERATOR Temperature - - Respiratory Rate - - Oxygen Saturation - - Inhaled Oxygen Concentration - - Weight 138.3 kg (305 lb) 09/25/2013 2:00 PM TAPE SEWING MACHINE OPERATOR Height 167.6 cm (5' 6) 09/25/2013 2:00 PM TAPE SEWING MACHINE OPERATOR Body Mass Index 49.23 09/25/2013 2:00 PM TAPE SEWING MACHINE OPERATOR documented in this encounter Progress Notes * [...] TABLET BY MOUTH DAILY AT BEDTIME; Therapy: 13Kol9457 to (Evaluate:50Ffq6164) Requested for: 96Bea8497; Last Rx:25Tem5382 Ordered Rx By: Darrell Hopson; Dispense: 30 Days ; #:30 Tablet; Refill: 11; For: Insomnia; TEX = N; Verified Transmission to [facility]; Last Updated By: Demetra Delcid; 07/18/2013 8:17:54 AM 2. Enpresse-28 Oral Tablet; TAKE 1 TABLET DAILY DIRECTED; Therapy: 30May2012 to (Evaluate:22Dec2013) Requested for: 09Jun2013; Last Rx:09Jun2013 Ordered Rx By: Priyanka Zepeda; Dispense: 28 Days ; #:1 X 28 EA Disp Pack; Refill: 6; For: Health Maintenance;TEX = N; Verified Transmission to [facility]; Last Updated By: Demetra Delcid; [...] Hypertension; TEX = N; Verified Transmission to [facility]; Last Updated By: Demetra Delcid; 03/25/2013 2:02:14 PM 5. LORazepam 0.5 MG Oral Tablet; TAKE 1 TABLET BY MOUTH TWICE DAILY; Therapy: 49Wzu1444 to (Evaluate:09Oct2013) Requested for: 09Sep2013; Last Rx:09Sep2013 [...] BY MOUTH EVERY DAY; Therapy: 08Jun2012 to (Evaluate:36Poc8771) Requested for: 16Jun2013; Last Rx:16Jun2013 Ordered Rx By: Priyanka Zepeda; Dispense: 0 Days ; #:30 Tablet Delayed Release; Refill: 6; For: Esophageal reflux; TEX = N; Verified Transmission to [facility]; Last Updated By: Demetra Delcid; [...] For:Depression; TEX = N; [facility]; Last Updated By: Fartun Omalley; 08/18/2013 4:27:48 PM 10. Vitamin D3 1000 UNIT Oral Tablet; Therapy: (Recorded:23Sep2013) to Recorded Dispense: 0 Days ; #: Sufficient TABS; Refill: 0; TEX = N; Record; Last Updated By: Marcella Gant; 09/23/2013 10:26:01 AM 11. Zolpidem Tartrate 10 MG Oral Tablet (Ambien); TAKE 1 TABLET AT BEDTIME NEEDED FOR INSOMNIA; Therapy: 23Sep2013 to (Evaluate:50Lte6656); Last Rx:23Sep2013 Ordered Rx By: Royer Hidalgo; Dispense: 90 Days ; #:90 Tablet; Refill: 1; For: Insomnia; TEX = N; Print Rx Allergies 1. No Known Drug Allergies Updated By: Marcella Gant; 09/23/2013 10:26:01 AM Immunizations Influenza --- Series1: [id number] Vitals Vital Signs [Data Includes: Current Encounter] [...] TWICE DAILY UNTIL FINISHED Rx By: Royer Hdialgo; Dispense: 7 Days ; #:14 Tablet; Refill: 0; For: Paronychia of finger; TEX = N; Send To: [facility][id number] Discussion/Summary Discussion Summary Free Text: Paronychia drained as noted above. Bactrim DS twice daily x7 days. Bacitracin ointment twice daily and gently wash wound with soap and water. Followup as needed, especially if increasing pain or redness. Signatures Electronically signed by : Royer Hidalgo M.D.; Sep 25 2013 2:38PM TAPE SEWING MACHINE OPERATOR (Author) SEWING MACHINE OPERATOR documented in this encounter Plan of Treatment Upcoming Encounters Date Type Department Care Team (Late st Contact Info) Description 07/25/2024 10:00 AM TAPE SEWING MACHINE OPERATOR Office Visit [facility] Family & Internal Medicine [address] [address] Keyonna Armstrong APNP [address] [place] [address] 07/31/2024 10:15 AM TAPE SEWING MACHINE OPERATOR Office Visit [facility] [place] [address] [place] [address] Pepe Mitchell MD Three [facility]. [facility] [address] [place] [address] documented as of this encounter Visit Diagnoses Not on filedocumented in this encounter Care Teams Cone Sewer Relationship Specialty Start Date End Date Royer Hidalgo MD PCP - General 04/25/16 09/14/16 Royer Hidalgo MD PCP - General 05/14/15 04/24/16 Priyanka Zepeda MD PCP - General 04/22/13 05/13/15 documented as of this encounter
--- OUTSIDE RECORDS SUMMARY | 2024-07-11 00:23 | XMS_ITS | Encounter Summary ---
Author Organization [facility] Address [address] [place] [address]. [place], [place] [address] [place] [address] Care Team Providers Care Rn Surgical Pcu Name Role Phone Royer Hidalgo MD Primary Care Provider [phone] Royer Hidalgo MD Primary Care Provider [phone] Priyanka Zepeda MD Primary Care Provider Unavailab le Priyanka Zepeda MD Primary Care Provider Unavailab le Encounter Details Date Type Department Care Team (Late st Contact Info) Description 1997 Abstract [facility] [place], [place] [id number] , Generic ConversionMD Social History Tobacco Use Types Packs/Day Years Used Date Smoking Tobacco: Never Assessed Comments Unknown Sex and Gender Information Value Date Recorded Sex Assigned at Not on file Legal Sex Female 5:47 PM CDT Gender Identity Female 07/17/2022 10:27 AM SUPERVISORY AIR INTERCEPT CONTROLLER Sexual Orientation Straight 07/17/2022 10 :27 AM SUPERVISORY AIR INTERCEPT CONTROLLER documented as of this encounter Plan of Treatment Upcoming Encounters Date Type Department Care Team (Late st Contact Info) Description 07/25/2024 10:00 AM SUPERVISORY AIR INTERCEPT CONTROLLER Office Visit [facility] Family & Internal Medicine - [place] [address] [place] [address] Keyonna Armstrong APNP [address] [place] [address] 07/31/2024 10:15 AM SUPERVISORY AIR INTERCEPT CONTROLLER Office Visit [facility], [address] [address] Pepe Mitchell MD Three [facility]. [facility] [address] [place] [address] documented as of this encounter Visit Diagnoses Not on filedocumented in this encounter Care Teams Rn Surgical Pcu Relationship Specialty Start Date End Date Royer Hidalgo MD PCP - General 04/25/16 09/14/16 Royre Hidalgo MD PCP - General 05/14/15 04/24/16 Priyanka Zepeda MD PCP - General 04/22/13 05/13/15 Priyanka Zepeda MD PCP - General 10/28/12 04/21/13 documented as of this encounter
--- OUTSIDE RECORDS SUMMARY | 2024-07-11 00:23 | XMS_ITS | Encounter Summary ---
Author Organization [facility] Address [facility]6 [facility]. [place], [place] [address] [place] [address] Care Team Providers Care Weld Fitter Name Role Phone Royer Hidalgo MD Primary Care Provider [phone] Royer Hidalgo MD Primary Care Provider [phone] Priyanka Zepeda MD Primary Care Provider Unavailab Priyanka Cruz MD Primary Care Provider Unavailab lew Encounter Details Date Type Department Care Team (Latest Contact Info) Description 07/24/2012 Abstract [facility] Social History Tobacco Use Types Packs/Day Years Used Date Smoking Tobacco: Never Assessed Comments Unknown Sex and Gender Information Value Date Recorded Sex Assigned at Not on file Legal Sex Female 5:47 PM CDT Gender Identity Female 07/17/2022 10:27 AM MARKETING LIAISON Sexual Orientation Straight 07/17/2022 10 :27 AM MARKETING LIAISON documented as of this encounter Progress Notes * Generic Conversion MD Marti - 07/24/2012 11:49 AM CST Message Recorded as Task Date: 07/24/2012 11:01 AM, Created By: Joanne Urbina Task Name: Medical Complaint Callback Assigned To: [facility] Katelyn Regarding Patient: Veronica Evangelista, Status: [...] AT BEDTIME NEEDED FOR SLEEP; Therapy: to (Evaluate:17Ozj8129); Last Rx:24Jul2012 Signatures Electronically signed by : Demetra Carlson, ; Jul 24 2012 11:49AM (Author) ETING LIAISON documented in this encounter Plan of Treatment Upcoming Encounters Date Type Department Care Team (Late st Contact Info) Description 07/25/2024 10:00 AM MARKETING LIAISON Office Visit [facility] Family & Internal Medicine - [address] [address] Keyonna Armstrong APNP [address] [place] [address] 07/31/2024 10:15 AM MARKETING LIAISON Office Visit [facility] [address] [place], [place] [phone] Pepe Mitchell MD [facility]. [facility] [address] [place], [place] [address] documented as of this encounter Visit Diagnoses Not on filedocumented in this encounter Care Teams Weld Fitter Relationship Specialty Start Date End Date Royer Hiadlgo MD PCP - General 04/25/16 09/14/16 Royer Hidalgo MD PCP - General 05/14/15 04/24/16 Priyanka Zepeda MD PCP - General 04/22/13 05/13/15 Priyanka Zepeda MD PCP - General 10/28/12 04/21/13 documented as of this encounter
--- OUTSIDE RECORDS SUMMARY | 2024-07-11 00:23 | XMS_ITS | Encounter Summary ---
Author Organization [facility] Address [facility]6 [facility]. [place], [place] [address] [place] [address] Care Team Providers Care Aviation Maintenance Instructor Name Role Phone Royer Hidalgo MD Primary Care Provider [phone] Royer Hidalgo MD Primary Care Provider [phone] Priyanka Zepeda MD Primary Care Provider Unavailab le Priyanka Zepeda MD Primary Care Provider Unavailab le Encounter Details Date Type Department Care Team (Latest Contact Info) Description 03/04/2013 Abstract [facility] Social History Tobacco Use Types Packs/Day Years Used Date Smoking Tobacco: Never Assessed Comments Unknown Sex and Gender Information Value Date Recorded Sex Assigned at Not on file Legal Sex Female 5:47 PM CDT Gender Identity Female 07/17/2022 10:27 AM ENERGY SCHEDULER Sexual Orientation Straight 07/17/2022 10 :27 AM ENERGY SCHEDULER documented as of this encounter Plan of Treatment Upcoming Encounters Date Type Department Care Team (Late st Contact Info) Description 07/25/2024 10:00 AM ENERGY SCHEDULER Office Visit [facility] Family & Internal Medicine - [place] [address] [place] [address] Keyonna Armstrong APNP [address] [place] [address] 07/31/2024 10:15 AM ENERGY SCHEDULER Office Visit [facility], [facility] [address] [place] [address] Pepe Mitchell MD [facility]. [place] [address] [place] [address] documented as of this encounter Visit Diagnoses Not on filedocumented in this encounter Care Teams Aviation Maintenance Instructor Relationship Specialty Start Date End Date Royer Hidalgo MD PCP - General 04/25/16 09/14/16 Royer Hidalgo MD PCP - General 05/14/15 04/24/16 Priyanka Zepeda MD PCP - General 04/22/13 05/13/15 Priyanka Zepeda MD PCP - General 10/28/12 04/21/13 documented as of this encounter
--- OUTSIDE RECORDS SUMMARY | 2024-07-11 00:23 | XMS_ITS | Encounter Summary ---
Author Organization [facility] Address [facility]6 [facility]. [place], [place] [address] [place] [address] Care Team Providers Care Jig Boring Machine Set Up Operator Name Role Phone Royer Hidalgo MD Primary Care Provider [phone] Royer Hidalgo MD Primary Care Provider [phone] Priyanka Zepeda MD Primary Care Provider Unavailab le Encounter Details Date Type Department Care Team (Latest Contact Info) Description 11/28/2013 Abstract [facility] Social History Tobacco Use Types Packs/Day Years Used Date Smoking Tobacco: Never Assessed Comments Unknown Sex and Gender Information Value Date Recorded Sex Assigned at Not on file Legal Sex Female 5:47 PM CDT Gender Identity Female 07/17/2022 10:27 AM SHUTTLE FILLER Sexual Orientation Straight 07/17/2022 10 :27 AM SHUTTLE FILLER documented as of this encounter Progress Notes [...] it will work, if possible? Send to [facility] in [place]. Marcella Gant - 28 Nov 2013 8:27 AM TASK EDITED Left message for pt to call back Marcella Gant - 28 Nov 2013 8:51 AM TASK EDITED Pt states the Ambien 10mg is not effective, would like to try an alternative medication. Pharmacy: [facility] [place] Royer Hidalgo - 28 Nov 2013 2:02 PM TASK EDITED Recommend D/C of ambien and amitryptiline. Start trazodone 50mg 1-2 tabs at bedtime as needed (#30 Ref 0). Marcella Gant - 28 Nov 2013 2:32 PM TASK EDITED Pt notified of above. Pt verbalized understanding, denies any questions at this time. Trazodone ordered, sent to [facility] in [place] per pt request. Current Meds 1. Amitriptyline HCl - 50 MG Oral Tablet; TAKE 1 TABLET AT BEDTIME; Therapy: 66Pet4234 to (Evaluate:07Xyv6795) Requested for: 11Eop7030; Last Rx:30Pte0712 Ordered 2. Enpresse-28 Oral Tablet; TAKE 1 TABLET DAILY DIRECTED; Therapy: 30May2012 to (Evaluate:22Dec2013) Requested for: 99Rhp2056; Last Rx:89Cfu4870 Ordered 3. Gas Relief CAPS; Therapy: (Recorded:23Sep2013) to Recorded 4. Hydrochlorothiazide 25 MG Oral Tablet; TAKE ONE TABLET BY MOUTH EVERY DAY; Therapy: 20May2012 to (Evaluate:54Sae9005) Requested for: 05Fcj7277; Last Rx:04Cbl8247 Ordered 5. Hydrocodone-Acetaminophen 5-325 MG Oral Tablet; TAKE 1 TO 2 TABLETS EVERY 4 TO 6 HOURS NEEDED FOR PAIN. NO MORE THAN 8 TABLETS PER DAY; Therapy: 25Sep2013 to (Evaluate:27Sep2013); Last Rx:25Sep2013 Ordered 6. LORazepam 0.5 MG Oral Tablet; Take 1 tablet twice a day; Therapy: 64Ttm4203 to (Evaluate:14Xrr6547) Requested for: 10Nov2013; Last Rx:84Srg1403 Ordered 7. MetFORMIN HCl - 500 MG Oral Tablet; Therapy: 24Dec2011 to Recorded 8. Multivitamins TABS; Therapy: (Recorded:23Sep2013) to Recorded 9. Pantoprazole Sodium 40 MG Oral Tablet Delayed Release; TAKE ONE TABLET BY MOUTH EVERY DAY; Therapy: 08Jun2012 to (Evaluate:00Gom8664) Requested for: 16Jun2013; Last Rx:16Jun2013 Ordered 10. [...] BEDTIME NEEDED FOR INSOMNIA; Therapy: 23Sep2013 to (Evaluate:64Bvz5556); Last Rx:23Sep2013 Ordered Plan 1. Start: TraZODone HCl - 50 MG Oral Tablet; Take 1-2 tablets at bedtime as needed for sleep Signatures Electronically signed by : Royer Hidalgo M.D.; Nov 28 2013 2:36PM SHUTTLE FILLER (Author) TLE FILLER documented in this encounter Plan of Treatment Upcoming Encounters Date Type Department Care Team (Late st Contact Info) Description 07/25/2024 10:00 AM SHUTTLE FILLER Office Visit [facility] Family & Internal Medicine - [place] [address] [place] [address] Keynona Armstrong APNP [address] [place] [address] 07/31/2024 10:15 AM SHUTTLE FILLER Office Visit [facility], [facility] [address] [place] [address] Pepe Mitchell MD Three [facility]. [facility] [address] [place] [address] documented as of this encounter Visit Diagnoses Not on filedocumented in this encounter Care Teams Jig Boring Machine Set Up Operator Relationship Specialty Start Date End Date Royer Hidalgo MD PCP - General 04/25/16 09/14/16 Royer Hidalgo MD PCP - General 05/14/15 04/24/16 Priyanka Zepeda MD PCP - General 04/22/13 05/13/15 documented as of this encounter
--- OUTSIDE RECORDS SUMMARY | 2024-07-11 00:23 | XMS_ITS | Encounter Summary ---
Author Organization [facility] Address [facility]6 [facility]. [place], [place] [address] [place] [address] Care Team Providers Care Back Winder Name Role Phone Royer Hidalgo MD Primary Care Provider [phone] Royer Hidalgo MD Primary Care Provider [phone] Priyanka Zepeda MD Primary Care Provider Unavailab Priyanka Cruz MD Primary Care Provider Unavailab lew Encounter Details Date Type Department Care Team (Latest Contact Info) Description 02/25/2013 Abstract [facility] Social History Tobacco Use Types Packs/Day Years Used Date Smoking Tobacco: Never Assessed Comments Unknown Sex and Gender Information Value Date Recorded Sex Assigned at Not on file Legal Sex Female 5:47 PM CDT Gender Identity Female 07/17/2022 10:27 AM EMBLEM DRAWER IN Sexual Orientation Straight 07/17/2022 10 :27 AM EMBLEM DRAWER IN documented as of this encounter Progress Notes * Generic Conversion MD Marti - 02/25/2013 1:46 PM CDT Message Recorded as Task Date: 02/25/2013 10:16 AM, Created By: Joanne Urbina Task Name: Medical Complaint Callback Assigned To: [facility] Team Katelyn Regarding Patient: Veronica Evangelista, Status: [...] Delcid, ; Feb 25 2013 1:48PM (Author) EM DRAWER IN documented in this encounter Plan of Treatment Upcoming Encounters Date Type Department Care Team (Late st Contact Info) Description 07/25/2024 10:00 AM EMBLEM DRAWER IN Office Visit [facility] Family & Internal Medicine [place] [address] [place] [address] Keyonna Armstrong APNP [facility] [place] [address] 07/31/2024 10:15 AM EMBLEM DRAWER IN [facility] [address] [place] [address] Pepe Mitchell MD [facility] [address] [place] [address] documented as of this encounter Visit Diagnoses Not on filedocumented in this encounter Care Teams Back Winder Relationship Specialty Start Date End Date Royer Hidalgo MD PCP - General 04/25/16 09/14/16 Royer Hidalgo MD PCP - General 05/14/15 04/24/16 Priyanka Zepeda MD PCP - General 04/22/13 05/13/15 Priynaka Zepeda MD PCP - General 10/28/12 04/21/13 documented as of this encounter
--- OUTSIDE RECORDS SUMMARY | 2024-07-11 00:23 | XMS_ITS | Encounter Summary ---
Author Organization [facility] Address [facility]. [place], [place] [address] [place] [address] Care Team Providers Care Lean Process Deployment Consultant Name Role Phone Royer Hidalgo MD Primary Care Provider [phone] Royer Hidalgo MD Primary Care Provider [phone] Priyanka Zepeda MD Primary Care Provider Unavailab le Priyanka Zepeda MD Primary Care Provider Unavailab le Encounter Details Date Type Department Care Team (Latest Contact Info) Description 04/01/2013 Abstract [facility] Social History Tobacco Use Types Packs/Day Years Used Date Smoking Tobacco: Never Assessed Comments Unknown Sex and Gender Information Value Date Recorded Sex Assigned at Not on file Legal Sex Female 5:47 PM CDT Gender Identity Female 07/17/2022 10:27 AM DECAY CONTROL OPERATOR Sexual Orientation Straight 07/17/2022 10 :27 AM DECAY CONTROL OPERATOR documented as of this encounter Plan of Treatment Upcoming Encounters Date Type Department Care Team (Late st Contact Info) Description 07/25/2024 10:00 AM DECAY CONTROL OPERATOR Office Visit [facility] Family & Internal Medicine - [place] [address] [place] [address] Keyonna Armstrong APNP [address] [place] [address] 07/31/2024 10:15 AM DECAY CONTROL OPERATOR Office Visit [facility], [facility] [address] [place] [address] Pepe Mitchell MD [facility]. [facility] [address] [place] [address] documented as of this encounter Visit Diagnoses Not on filedocumented in this encounter Care Teams Lean Process Deployment Consultant Relationship Specialty Start Date End Date Royer Hidalgo MD PCP - General 04/25/16 09/14/16 Royer Hidalgo MD PCP - General 05/14/15 04/24/16 Priyanka Zepeda MD PCP - General 04/22/13 05/13/15 Priyanka Zepeda MD PCP - General 10/28/12 04/21/13 documented as of this encounter
--- OUTSIDE RECORDS SUMMARY | 2024-07-11 00:23 | XMS_ITS | Encounter Summary ---
Author Organization [facility] Address [address] [place] [address]. [place], [place] [address] [place] [address] Care Team Providers Care Manager Child Name Role Phone Royer Hidalgo MD Primary Care Provider [phone] Royer Hidalgo MD Primary Care Provider [phone] Priyanka Zepeda MD Primary Care Provider Unavailab le Encounter Details Date Type Department Care Team (Late st Contact Info) Description 09/23/2013 Abstract [facility] Medical Group Family Medicine - [address] [phone] Royer Hidalgo MD [address] [facility] [place] [address] Social History Tobacco Use Types Packs/Day Years Used Date Smoking Tobacco: Never Assessed Comments Unknown Sex and Gender Information Value Date Recorded Sex Assigned at Not on file Legal Sex Female 5:47 PM CDT Gender Identity Female 07/17/2022 10:27 AM LIBRARY MEDIA SPECIALIST Sexual Orientation Straight 07/17/2022 10 :27 AM LIBRARY MEDIA SPECIALIST documented as of this encounter Last Filed Vital Signs Vital Sign Reading Time Taken Comments Blood Pressure 140/87 09/23/2013 10:19 AM LIBRARY MEDIA SPECIALIST Pulse 88 09/23/2013 10:19 AM LIBRARY MEDIA SPECIALIST Temperature - - Respiratory Rate - - Oxygen Saturation - - Inhaled Oxygen Concentration - - Weight 138.3 kg (305 lb) 09/23/2013 10:19 AM LIBRARY MEDIA SPECIALIST Height 167.6 cm (5' 6) 09/23/2013 10:19 AM LIBRARY MEDIA SPECIALIST Body Mass Index 49.23 09/23/2013 10:19 AM LIBRARY MEDIA SPECIALIST documented in this encounter Progress Notes [...] TABLET BY MOUTH DAILY AT BEDTIME; Therapy: [id number] to (Evaluate:76Meb6516) Requested for: [id number]; Last Rx:[id number] Ordered Rx By: Darrell Hopson; Dispense: 30 Days ; #:30 Tablet; Refill: 11; For: Insomnia; TEX = N; Verified Transmission to [facility]; Last Updated By: Demetra Delcid; 07/18/2013 8:17:54 AM 2. Enpresse-28 Oral Tablet; TAKE 1 TABLET DAILY DIRECTED; Therapy: 30May2012 to (Evaluate:22Dec2013) Requested for: 09Jun2013; Last Rx:09Jun2013 Ordered Rx By: Priyanka Zepeda; Dispense: 28 Days ; #:1 X 28 EA Disp Pack; Refill: 6; For: Health Maintenance;TEX = N; Verified Transmission to [facility]; Last Updated By: Demetra Delcid; 06/09/2013 9:48:23 AM 3. Gas Relief CAPS; Therapy: (Recorded:23Sep2013) to Recorded Dispense: 0 Days ; #: Sufficient CAPS; Refill: 0; TEX = N; Record; Last Updated By: Marcella Gant; 09/23/2013 10:26:01 AM 4. Hydrochlorothiazide 25 MG Oral Tablet; TAKE ONE TABLET BY MOUTH EVERY DAY; Therapy: 20May2012 to (Evaluate:[id number]) Requested for: 25Mar2013; Last Rx:25Mar2013 Ordered Rx By: Priyanka Zepeda; Dispense: 90 Days ; #:90 Tablet; Refill: 3; For: Hypertension; TEX = N; Verified Transmission to [facility]; Last Updated By: Demetra Delcid; 03/25/2013 2:02:14 PM 5. LORazepam 0.5 MG Oral Tablet; TAKE 1 TABLET BY MOUTH TWICE DAILY; Therapy: [id number] to (Evaluate:09Oct2013) Requested for: 09Sep2013; Last Rx:09Sep2013 [...] BY MOUTH EVERY DAY; Therapy: 08Jun2012 to (Evaluate:[id number]) Requested for: 16Jun2013; Last Rx:16Jun2013 Ordered Rx By: Priyanka Zepeda; Dispense: 0 Days ; #:30 Tablet Delayed Release; Refill: 6; For: Esophageal reflux; TEX = N; Verified Transmission to [facility]; Last Updated By: Demetra [...] For:Depression; TEX = N; Verified Transmission to [facility]2510; Last Updated By: Fartun [...] BEDTIME NEEDED FOR SLEEP; Therapy: 24Jul2012 to (Evaluate:[id number]); Last Rx:18Aug2013 Ordered Rx By: Darrell Hopson; [...] Royer Hidalgo M.D.; Sep 23 2013 2:18PM LIBRARY MEDIA SPECIALIST (Author) ARY MEDIA SPECIALIST documented in this encounter Miscellaneous Notes * [...] by:Royer Hidalgo M.D. Sep 23 2013 11:07AM LIBRARY MEDIA SPECIALIST ARY MEDIA SPECIALIST documented in this encounter Plan of Treatment Upcoming Encounters Date Type Department Care Team (Late st Contact Info) Description 07/25/2024 10:00 AM LIBRARY MEDIA SPECIALIST Office Visit [facility] Medical Group Family & Internal Medicine - [place] [address] [place] [address] Keyonna Armstrong APNP [address] [place] [address] 07/31/2024 10:15 AM LIBRARY MEDIA SPECIALIST Office Visit [facility], [address] [address] Pepe Mitchell MD Three [facility]. [facility] [address] [place] [address] documented as of this encounter Visit Diagnoses Not on filedocumented in this encounter Care Teams Manager Child Relationship Specialty Start Date End Date Royer Hidalgo MD PCP - General 04/25/16 09/14/16 Royer Hidalgo MD PCP - General 05/14/15 04/24/16 Priyanka Zepeda MD PCP - General 04/22/13 05/13/15 documented as of this encounter
--- OUTSIDE RECORDS SUMMARY | 2024-07-11 00:23 | XMS_ITS | Encounter Summary ---
Author Organization [facility] Address [facility]. [place], [place] [address] [place] [address] Care Team Providers Care Behavior Therapist Name Role Phone Royer Hidalgo MD Primary Care Provider [phone] Royer Hidalgo MD Primary Care Provider [phone] Priyanka Zepeda MD Primary Care Provider Unavailab le Priyanka Zepeda MD Primary Care Provider Unavailab le Encounter Details Date Type Department Care Team (Latest Contact Info) Description 08/19/2012 Abstract [facility] Medical Group Social History Tobacco Use Types Packs/Day Years Used Date Smoking Tobacco: Never Assessed Comments Unknown Sex and Gender Information Value Date Recorded Sex Assigned at Not on file Legal Sex Female 5:47 PM CDT Gender Identity Female 07/17/2022 10:27 AM TRAFFIC REPRESENTATIVE Sexual Orientation Straight 07/17/2022 10 :27 AM TRAFFIC REPRESENTATIVE documented as of this encounter Plan of Treatment Upcoming Encounters Date Type Department Care Team (Late st Contact Info) Description 07/25/2024 10:00 AM TRAFFIC REPRESENTATIVE Office Visit [facility] Medical Group Family & Internal Medicine - [place] [address] [place] [address] Keyonna Armstrong APNP [address] [place] [address] 07/31/2024 10:15 AM TRAFFIC REPRESENTATIVE Office Visit [facility], [facility] [address] [place] [address] Pepe Mitchell MD [facility]. [place] [address] [place] [address] documented as of this encounter Visit Diagnoses Not on filedocumented in this encounter Care Teams Behavior Therapist Relationship Specialty Start Date End Date Royer Hidalgo MD PCP - General 04/25/16 09/14/16 Royer Hidalgo MD PCP - General 05/14/15 04/24/16 Priyanka Zepeda MD PCP - General 04/22/13 05/13/15 Priyanka Zepeda MD PCP - General 10/28/12 04/21/13 documented as of this encounter
--- OUTSIDE RECORDS SUMMARY | 2024-07-11 00:23 | XMS_ITS | Encounter Summary ---
Author Organization [facility] Address [facility]6 [facility]. [place], [place] [address] [address] Care Team Providers Care Dust Collector Attendant Name Role Phone Royer Hidalgo MD Primary Care Provider [phone] Royer Hidalgo MD Primary Care Provider [phone] Priyanka Zepeda MD Primary Care Provider Unavailab le Encounter Details Date Type Department Care Team (Latest Contact Info) Description 10/01/2013 Abstract [facility] Medical Group Social History Tobacco Use Types Packs/Day Years Used Date Smoking Tobacco: Never Assessed Comments Unknown Sex and Gender Information Value Date Recorded Sex Assigned at Not on file Legal Sex Female 5:47 PM CDT Gender Identity Female 07/17/2022 10:27 AM GAS PLANT SPECIALIST Sexual Orientation Straight 07/17/2022 10 :27 AM GAS PLANT SPECIALIST documented as of this encounter Progress Notes * Royer Hidalgo MD - 10/01/2013 8:09 AM CDT Message Recorded as Task Date: 09/30/2013 10:14 AM, Created By: Jeni Rich Task Name: Call Back Assigned To: [facility] Nursing Team Regarding Patient: [...] TABLET BY MOUTH DAILY AT BEDTIME; Therapy: [id number] to (Evaluate:03Yke0605) Requested for: 60Get5707; Last Rx:[id number] Ordered 2. Enpresse-28 Oral Tablet; TAKE 1 TABLET DAILY DIRECTED; Therapy: 30May2012 to (Evaluate:22Dec2013) Requested for: 09Jun2013; Last Rx:09Jun2013 Ordered 3. Gas Relief CAPS; Therapy: (Recorded:23Sep2013) to Recorded 4. Hydrochlorothiazide 25 MG Oral Tablet; TAKE ONE TABLET BY MOUTH EVERY DAY; Therapy: 20May2012 to (Evaluate:56Fuu1272) Requested for: 45Abn3071; Last Rx:[id number] Ordered 5. Hydrocodone-Acetaminophen 5-325 MG Oral Tablet; TAKE 1 TO 2 TABLETS EVERY 4 TO 6 HOURS NEEDED FOR PAIN. NO MORE THAN 8 TABLETS PER DAY; Therapy: 25Sep2013 to (Evaluate:27Sep2013); Last Rx:25Sep2013 Ordered 6. LORazepam 0.5 MG Oral Tablet; TAKE 1 TABLET BY MOUTH TWICE DAILY; Therapy: 17Vub0978 to (Evaluate:09Oct2013) Requested for: 09Kna4015; Last Rx:[id number] Ordered 7. MetFORMIN HCl - 500 MG Oral Tablet; Therapy: 24Dec2011 to Recorded 8. Multivitamins TABS; Therapy: (Recorded:23Sep2013) to Recorded 9. Pantoprazole Sodium 40 MG Oral Tablet Delayed Release; TAKE ONE TABLET BY MOUTH EVERY DAY; Therapy: 08Jun2012 to (Evaluate:86Eib3968) Requested for: 16Jun2013; Last Rx:16Jun2013 Ordered 10. [...] BEDTIME NEEDED FOR INSOMNIA; Therapy: 23Sep2013 to (Evaluate:15Mod3190); Last Rx:23Sep2013 Ordered Signatures Electronically signed by : Royer Hidalgo M.D.; Oct 01 2013 8:37AM GAS PLANT SPECIALIST (Author) documented in this encounter Plan of Treatment Upcoming Encounters Date Type Department Care Team (Late st Contact Info) Description 07/25/2024 10:00 AM GAS PLANT SPECIALIST Office Visit [facility] Medical Group Family & Internal Medicine [facility] [address] [place] [address] Keyonna Armstrong APNP [facility] [place] [address] 07/31/2024 10:15 AM GAS PLANT SPECIALIST Office Visit [facility], [facility] [address] [place] [address] Pepe Mitchell MD [facility]. [facility] [address] [place] [address] documented as of this encounter Visit Diagnoses Not on filedocumented in this encounter Care Teams Dust Collector Attendant Relationship Specialty Start Date End Date Royer Hidalgo MD PCP - General 04/25/16 09/14/16 Royer Hidalgo MD PCP - General 05/14/15 04/24/16 Priyanka Zepeda MD PCP - General 04/22/13 05/13/15 documented as of this encounter
--- OUTSIDE RECORDS SUMMARY | 2024-07-11 00:23 | XMS_ITS | Encounter Summary ---
Author Organization [facility] Address [facility]. [place], [place] [address] [place] [address] Care Team Providers Care Rocket Scientist Name Role Phone Royer Hidalgo MD Primary Care Provider [phone] Royer Hidalgo MD Primary Care Provider [phone] Priyanka Zepeda MD Primary Care Provider Unavailab le Encounter Details Date Type Department Care Team (Latest Contact Info) Description 09/29/2013 Abstract [facility] Medical Group Social History Tobacco Use Types Packs/Day Years Used Date Smoking Tobacco: Never Assessed Comments Unknown Sex and Gender Information Value Date Recorded Sex Assigned at Not on file Legal Sex Female 5:47 PM CDT Gender Identity Female 07/17/2022 10:27 AM MOLDER OPERATOR Sexual Orientation Straight 07/17/2022 10 :27 AM MOLDER OPERATOR documented as of this encounter Plan of Treatment Upcoming Encounters Date Type Department Care Team (Late st Contact Info) Description 07/25/2024 10:00 AM MOLDER OPERATOR Office Visit [facility] Medical Group Family & Internal Medicine [facility] [address] [place] [address] Keyonna Armstrong APNP [address] [place] [address] 07/31/2024 10:15 AM MOLDER OPERATOR Office Visit [facility], [facility] [address] [place], [place] [phone] Pepe Mitchell MD [facility]. [place] [address] [place], [place] [phone] documented as of this encounter Visit Diagnoses Not on filedocumented in this encounter Care Teams Rocket Scientist Relationship Specialty Start Date End Date Royer Hidalgo MD PCP - General 04/25/16 09/14/16 Royer Hidalgo MD PCP - General 05/14/15 04/24/16 Priyanka Zepeda MD PCP - General 04/22/13 05/13/15 documented as of this encounter
--- OUTSIDE RECORDS SUMMARY | 2024-07-11 00:23 | XMS_ITS | Encounter Summary ---
Author Organization [facility] Address [facility]. [place], [place] [address] [place] [address] Care Team Providers Care Color Repairer Name Role Phone Royer Hidalgo MD Primary Care Provider [phone] Royer Hidalgo MD Primary Care Provider [phone] Priyanka Zepeda MD Primary Care Provider Unavailab le Encounter Details Date Type Department Care Team (Latest Contact Info) Description 09/24/2013 Abstract [facility] Medical Group Royer Hidalgo MD [address] [facility] [place] [address] Social History Tobacco Use Types Packs/Day Years Used Date Smoking Tobacco: Never Assessed Comments Unknown Sex and Gender Information Value Date Recorded Sex Assigned at Not on file Legal Sex Female 5:47 PM CDT Gender Identity Female 07/17/2022 10:27 AM DIETITIAN TEACHING Sexual Orientation Straight 07/17/2022 10 :27 AM DIETITIAN TEACHING documented as of this encounter Plan of Treatment Upcoming Encounters Date Type Department Care Team (Late st Contact Info) Description 07/25/2024 10:00 AM DIETITIAN TEACHING Office Visit [facility] Medical Group Family & Internal Medicine [facility] [address] [place] [address] Keyonna Armstrong APNP [address] [place] [address] 07/31/2024 10:15 AM DIETITIAN TEACHING Office Visit [facility], [address] [address] Pepe Mitchell MD [facility] [place] [address] [place] [address] documented as of this encounter Visit Diagnoses Not on filedocumented in this encounter Care Teams Color Repairer Relationship Specialty Start Date End Date Royer Hidalgo MD PCP - General 04/25/16 09/14/16 Royer Hidalgo MD PCP - General 05/14/15 04/24/16 Priyanka Zepeda MD PCP - General 04/22/13 05/13/15 documented as of this encounter
--- OUTSIDE RECORDS SUMMARY | 2024-07-11 00:23 | XMS_ITS | Encounter Summary ---
Author Organization [facility] Address [facility], [facility]6 [facility]. [place], [place] [address] [place] [address] Care Team Providers Care Bus Escort Name Role Phone Royer Hidalgo MD Primary Care Provider [phone] Royer Hidalgo MD Primary Care Provider [phone] Priyanka Zepeda MD Primary Care Provider Unavailab le Encounter Details Date Type Department Care Team (Latest Contact Info) Description 06/25/2013 Abstract [facility] Medical Group Social History Tobacco Use Types Packs/Day Years Used Date Smoking Tobacco: Never Assessed Comments Unknown Sex and Gender Information Value Date Recorded Sex Assigned at Not on file Legal Sex Female 5:47 PM CDT Gender Identity Female 07/17/2022 10:27 AM ASSISTANT PROFESSOR OF EDUCATION Sexual Orientation Straight 07/17/2022 10 :27 AM ASSISTANT PROFESSOR OF EDUCATION documented as of this encounter Plan of Treatment Upcoming Encounters Date Type Department Care Team (Late st Contact Info) Description 07/25/2024 10:00 AM ASSISTANT PROFESSOR OF EDUCATION Office Visit [facility] Medical Group Family & Internal Medicine [facility] [address] [place] [address] Keyonna Armstrong APNP [address] [place] [address] 07/31/2024 10:15 AM ASSISTANT PROFESSOR OF EDUCATION Office Visit [facility] [address] [place], [place] [phone] Pepe Mitchell MD [facility]. [place] [address] [place], [place] [address] documented as of this encounter Visit Diagnoses Not on filedocumented in this encounter Care Teams Bus Escort Relationship Specialty Start Date End Date Royer Hidalgo MD PCP - General 04/25/16 09/14/16 Royer Hidalgo MD PCP - General 05/14/15 04/24/16 Priyanka Zepeda MD PCP - General 04/22/13 05/13/15 documented as of this encounter
--- OUTSIDE RECORDS SUMMARY | 2024-07-11 00:23 | XMS_ITS | Encounter Summary ---
Author Organization [facility] Address [facility]6 [facility]. [place], [place] [address] [place] [address] Care Team Providers Care Machine Cage Maker Name Role Phone Royer Hidalgo MD Primary Care Provider [phone] Royer Hidalgo MD Primary Care Provider [phone] Priyanka Zepeda MD Primary Care Provider Unavailab le Priyanka Zepeda MD Primary Care Provider Unavailab le Encounter Details Date Type Department Care Team (Latest Contact Info) Description 03/26/2013 Abstract [facility] Medical Group Social History Tobacco Use Types Packs/Day Years Used Date Smoking Tobacco: Never Assessed Comments Unknown Sex and Gender Information Value Date Recorded Sex Assigned at Not on file Legal Sex Female 5:47 PM CDT Gender Identity Female 07/17/2022 10:27 AM LAWYER REAL ESTATE Sexual Orientation Straight 07/17/2022 10 :27 AM LAWYER REAL ESTATE documented as of this encounter Plan of Treatment Upcoming Encounters Date Type Department Care Team (Late st Contact Info) Description 07/25/2024 10:00 AM LAWYER REAL ESTATE Office Visit [facility] Medical Group Family & Internal Medicine - [place] [address] [place] [address] Keyonna Armstrong APNP [address] [place] [address] 07/31/2024 10:15 AM LAWYER REAL ESTATE Office Visit [facility], [facility] [address] [place] [address] Pepe Mitchell MD [facility]. [place] [address] [place] [address] documented as of this encounter Visit Diagnoses Not on filedocumented in this encounter Care Teams Machine Cage Maker Relationship Specialty Start Date End Date Royer Hidalgo MD PCP - General 04/25/16 09/14/16 Royer Hidalgo MD PCP - General 05/14/15 04/24/16 Priyanka Zepeda MD PCP - General 04/22/13 05/13/15 Priyanka Zepeda MD PCP - General 10/28/12 04/21/13 documented as of this encounter
--- OUTSIDE RECORDS SUMMARY | 2024-07-11 00:23 | XMS_ITS | Encounter Summary ---
Author Organization [facility] Address [address] [place] [address]. [place], [place] [address] [place] [address] Care Team Providers Care Chemical Equipment Repairer Name Role Phone Royer Hidalgo MD Primary Care Provider [phone] Royer Hidalgo MD Primary Care Provider [phone] Priyanka Zepeda MD Primary Care Provider Unavailab le Encounter Details Date Type Department Care Team (Latest Contact Info) Description 04/23/2013 Abstract [facility] Medical Group Social History Tobacco Use Types Packs/Day Years Used Date Smoking Tobacco: Never Assessed Comments Unknown Sex and Gender Information Value Date Recorded Sex Assigned at Not on file Legal Sex Female 5:47 PM CDT Gender Identity Female 07/17/2022 10:27 AM INFANTRYMAN Sexual Orientation Straight 07/17/2022 10 :27 AM INFANTRYMAN documented as of this encounter Progress Notes [...] Delcid, ; Apr 24 2013 11:09AM (Author) NTRYMAN documented in this encounter Plan of Treatment Upcoming Encounters Date Type Department Care Team (Late st Contact Info) Description 07/25/2024 10:00 AM INFANTRYMAN Office Visit [facility] Medical Group Family & Internal Medicine - [address] [address] Keyonna Armstrong APNP [address] [place] [address] 07/31/2024 10:15 AM INFANTRYMAN Office Visit [facility], [facility] [address] [place], [place] [address] Pepe Mithcell MD [facility]. [facility] [address] [place] [address] documented as of this encounter Visit Diagnoses Not on filedocumented in this encounter Care Teams Chemical Equipment Repairer Relationship Specialty Start Date End Date Royer Hidalgo MD PCP - General 04/25/16 09/14/16 Royer Hidalgo MD PCP - General 05/14/15 04/24/16 Priyanka Zepeda MD PCP - General 04/22/13 05/13/15 documented as of this encounter
--- OUTSIDE RECORDS SUMMARY | 2024-07-11 00:23 | XMS_ITS | Encounter Summary ---
Author Organization [facility] Address [facility]6 [facility]. [place], [place] [address] [place] [address] Care Team Providers Care Trim Crew Supervisor Name Role Phone Royer Hidalgo MD Primary Care Provider [phone] Royer Hidalgo MD Primary Care Provider [phone] Priyanka Zepeda MD Primary Care Provider Unavailab le Priyanka Zepeda MD Primary Care Provider Unavailab le Encounter Details Date Type Department Care Team (Latest Contact Info) Description 10/29/2012 Abstract [facility] Medical Group Social History Tobacco Use Types Packs/Day Years Used Date Smoking Tobacco: Never Assessed Comments Unknown Sex and Gender Information Value Date Recorded Sex Assigned at Not on file Legal Sex Female 5:47 PM CDT Gender Identity Female 07/17/2022 10:27 AM LOOM FIXER SUPERVISOR Sexual Orientation Straight 07/17/2022 10 :27 AM LOOM FIXER SUPERVISOR documented as of this encounter Progress Notes * Generic Conversion MD Marti - 10/29/2012 11:42 AM CDT Message Recorded as Task Date: 10/29/2012 09:15 AM, Created By: Tiffanie Zhou Task Name: Medical Complaint Callback Assigned To: [facility] Team Katelyn Regarding Patient: [...] Carlson, ; Oct 29 2012 11:42AM (Author) FIXER SUPERVISOR documented in this encounter Plan of Treatment Upcoming Encounters Date Type Department Care Team (Late st Contact Info) Description 07/25/2024 10:00 AM LOOM FIXER SUPERVISOR Office Visit [facility] Medical Group Family & Internal Medicine - [place] [address] [place] [address] Keyonna Armstrong APNP [address] [place] [address] 07/31/2024 10:15 AM LOOM FIXER SUPERVISOR Office Visit [place] [facility], [facility] [address] [place], [place] [phone] Pepe Mitchell MD Three [facility]. [facility] [address] [place] [address] documented as of this encounter Visit Diagnoses Not on filedocumented in this encounter Care Teams Trim Crew Supervisor Relationship Specialty Start Date End Date Royer Hidalgo MD PCP - General 04/25/16 09/14/16 Royer Hidalgo MD PCP - General 05/14/15 04/24/16 Priyanka Zepeda MD PCP - General 04/22/13 05/13/15 Priyanka Zepeda MD PCP - General 10/28/12 04/21/13 documented as of this encounter
--- OUTSIDE RECORDS SUMMARY | 2024-07-11 00:23 | XMS_ITS | Encounter Summary ---
Author Organization [facility] Address [address] [place] [address]. [place], [place] [address] [place] [address] Care Team Providers Care Counter Clerk Name Role Phone Royer Hidalgo MD Primary Care Provider [phone] Royer Hidalgo MD Primary Care Provider [phone] Priyanka Zepeda MD Primary Care Provider Unavailab le Priyanka Zepeda MD Primary Care Provider Unavailab le Encounter Details Date Type Department Care Team (Late st Contact Info) Description 09/12/1997 Abstract [facility] [place], [place] [id number] , Generic ConversionMD Social History Tobacco Use Types Packs/Day Years Used Date Smoking Tobacco: Never Assessed Comments Unknown Sex and Gender Information Value Date Recorded Sex Assigned at Not on file Legal Sex Female 5:47 PM CDT Gender Identity Female 07/17/2022 10:27 AM GREENBELT Sexual Orientation Straight 07/17/2022 10 :27 AM GREENBELT documented as of this encounter Plan of Treatment Upcoming Encounters Date Type Department Care Team (Late st Contact Info) Description 07/25/2024 10:00 AM GREENBELT Office Visit [facility] Medical [facility] Family & Internal Medicine - [place] [address] [place] [address] Keyonna Armstrong APNP [address] [place] [address] 07/31/2024 10:15 AM GREENBELT Office Visit [facility] THREE [facility], [address] [address] Pepe Mitchell MD Three [facility]. [facility] [address] [place] [address] documented as of this encounter Visit Diagnoses Not on filedocumented in this encounter Care Teams Counter Clerk Relationship Specialty Start Date End Date Royer Hidalgo MD PCP - General 04/25/16 09/14/16 Royer Hidalgo MD PCP - General 05/14/15 04/24/16 Priyanka Zepeda MD PCP - General 04/22/13 05/13/15 Priyanka Zepeda MD PCP - General 10/28/12 04/21/13 documented as of this encounter
--- OUTSIDE RECORDS SUMMARY | 2024-07-11 00:23 | XMS_ITS | Encounter Summary ---
Author Organization [facility] Address [facility]. [place], [place] [address] [place] [address] Care Team Providers Care Plumber Pipe Fitting Name Role Phone Royer Hidalgo MD Primary Care Provider [phone] Royer Hidalgo MD Primary Care Provider [phone] Priyanka Zepeda MD Primary Care Provider Unavailab le Priyanka Zepeda MD Primary Care Provider Unavailab le Encounter Details Date Type Department Care Team (Late st Contact Info) Description 02/22/2000 Abstract [facility] [place] [address] Claudia Kidd MD Social History Tobacco Use Types Packs/Day Years Used Date Smoking Tobacco: Never Assessed Comments Unknown Sex and Gender Information Value Date Recorded Sex Assigned at Not on file Legal Sex Female 5:47 PM CDT Gender Identity Female 07/17/2022 10:27 AM DIRECTOR OF REHABILITATION Sexual Orientation Straight 07/17/2022 10 :27 AM DIRECTOR OF REHABILITATION documented as of this encounter Plan of Treatment Upcoming Encounters Date Type Department Care Team (Late st Contact Info) Description 07/25/2024 10:00 AM DIRECTOR OF REHABILITATION Office Visit [facility] Medical Group Family & Internal Medicine - [place] [address] [place] [address] Keyonna Armstrong APNP [address] [place] [address] 07/31/2024 10:15 AM DIRECTOR OF REHABILITATION Office Visit [facility] THREE [facility] [address], [place] [address] [place] [address] [facility] [address] [place] [address] documented as of this encounter Visit Diagnoses Not on filedocumented in this encounter Care Teams Plumber Pipe Fitting Relationship Specialty Start Date End Date Royer Hidalgo MD PCP - General 04/25/16 09/14/16 Royer Hidalgo MD PCP - General 05/14/15 04/24/16 Priyanka Zepeda MD PCP - General 04/22/13 05/13/15 Priyanka Zepeda MD PCP - General 10/28/12 04/21/13 documented as of this encounter
--- OUTSIDE RECORDS SUMMARY | 2024-07-11 00:23 | XMS_ITS | Encounter Summary ---
Author Organization [facility] Address [facility]. [place], [place] [address] [place] [address] Care Team Providers Care Topographical Surveyor Name Role Phone Royer Hidalgo MD Primary Care Provider [phone] Royer Hidalgo MD Primary Care Provider [phone] Priyanka Zepeda MD Primary Care Provider Unavailab le Priyanka Zepeda MD Primary Care Provider Unavailab le Encounter Details Date Type Department Care Team (Latest Contact Info) Description 02/26/2013 Abstract [facility] Medical Group Social History Tobacco Use Types Packs/Day Years Used Date Smoking Tobacco: Never Assessed Comments Unknown Sex and Gender Information Value Date Recorded Sex Assigned at Not on file Legal Sex Female 5:47 PM CDT Gender Identity Female 07/17/2022 10:27 AM PHARMACEUTICAL SERVICE REPRESENTATIVE Sexual Orientation Straight 07/17/2022 10 :27 AM PHARMACEUTICAL SERVICE REPRESENTATIVE documented as of this encounter Progress Notes * Generic Conversion MD Marti - 02/26/2013 10:25 AM CDT Message Recorded as Task Date: 02/25/2013 03:19 PM, Created By: Joanne Urbina Task Name: Medical Complaint Callback Assigned To: [facility] Team Katelyn Regarding [...] Zhou, ; Feb 26 2013 10:26AM (Author) MACEUTICAL SERVICE REPRESENTATIVE documented in this encounter Plan of Treatment Upcoming Encounters Date Type Department Care Team (Late st Contact Info) Description 07/25/2024 10:00 AM PHARMACEUTICAL SERVICE REPRESENTATIVE Office Visit [facility] Medical Group Family & Internal Medicine - [place] [address] [place] [address] Keyonna Armstrong APNP [address] [place] [address] 07/31/2024 10:15 AM PHARMACEUTICAL SERVICE REPRESENTATIVE Office Visit [facility] THREE [facility], [facility] [address] [place] [address] Pepe Mitchell MD Three [facility]. [facility] [address] [place] [address] documented as of this encounter Visit Diagnoses Not on filedocumented in this encounter Care Teams Topographical Surveyor Relationship Specialty Start Date End Date Royer Hidalgo MD PCP - General 04/25/16 09/14/16 Royer Hidalgo MD PCP - General 05/14/15 04/24/16 Priyanka Zepeda MD PCP - General 04/22/13 05/13/15 Priyanka Zepeda MD PCP - General 10/28/12 04/21/13 documented as of this encounter
--- OUTSIDE RECORDS SUMMARY | 2024-07-11 00:23 | XMS_ITS | Encounter Summary ---
Author Organization [facility] Address [address] [place] [address]. [place], [place] [address] [place] [address] Care Team Providers Care Power Switchboard Operator Name Role Phone Royer Hidalgo MD Primary Care Provider [phone] Royer Hidalgo MD Primary Care Provider [phone] Priyanka Zepeda MD Primary Care Provider Unavailab le Priyanka Zepeda MD Primary Care Provider Unavailab le Encounter Details Date Type Department Care Team (Late st Contact Info) Description 06/19/2012 Abstract [facility] Medical Group Family & Internal Medicine [address] [phone] Priyanka Zepeda MD Social History Tobacco Use Types Packs/Day Years Used Date Smoking Tobacco: Never Assessed Comments Unknown Sex and Gender Information Value Date Recorded Sex Assigned at Not on file Legal Sex Female 5:47 PM CDT Gender Identity Female 07/17/2022 10:27 AM SHORT STORY WRITER Sexual Orientation Straight 07/17/2022 10 :27 AM SHORT STORY WRITER documented as of this encounter Last Filed Vital Signs Vital Sign Reading Time Taken Comments Blood Pressure 151/102 06/19/2012 10:18 AM SHORT STORY WRITER Pulse 111 06/19/2012 10:18 AM SHORT STORY WRITER Temperature - - Respiratory Rate - - Oxygen Saturation - - Inhaled Oxygen Concentration - - Weight 146.5 kg (323 lb) 06/19/2012 10:18 AM SHORT STORY WRITER Height 167.6 cm (5' 6) 06/19/2012 10:18 AM SHORT STORY WRITER Body Mass Index 52.13 06/19/2012 10:18 AM SHORT STORY WRITER documented in this encounter Progress Notes * [...] Zepeda M.D.; Aug 02 2012 7:11AM (Author) T STORY WRITER documented in this encounter Plan of Treatment Upcoming Encounters Date Type Department Care Team (Late st Contact Info) Description 07/25/2024 10:00 AM SHORT STORY WRITER Office Visit [facility] Medical Group Family & Internal Medicine - [place] [address] [place] [address] Keyonna Armstrong APNP [address] [place] [address] 07/31/2024 10:15 AM SHORT STORY WRITER Office Visit [facility] THREE [facility], [facility] [address] [place], [place] [id number] Pepe Mitchell MD Three [facility]. [facility] [address] [place], [place] [id number] documented as of this encounter Visit Diagnoses Not on filedocumented in this encounter Care Teams Power Switchboard Operator Relationship Specialty Start Date End Date Royer Hidalgo MD PCP - General 04/25/16 09/14/16 Royer Hidalgo MD PCP - General 05/14/15 04/24/16 Priyanka Zepeda MD PCP - General 04/22/13 05/13/15 Priyanka Zepeda MD PCP - General 10/28/12 04/21/13 documented as of this encounter
--- OUTSIDE RECORDS SUMMARY | 2024-07-11 00:23 | XMS_ITS | Encounter Summary ---
Author Organization [facility] Address [address] [place] [address]. [place], [place] [address] [place] [address] Care Team Providers Care Aviation Technical Systems Specialist Name Role Phone Royer Hidalgo MD Primary Care Provider [phone] Royer Hidalgo MD Primary Care Provider [phone] Priyanka Zepeda MD Primary Care Provider Unavailab le Priyanka Zepeda MD Primary Care Provider Unavailab le Encounter Details Date Type Department Care Team (Late st Contact Info) Description 10/28/2012 Abstract [facility] [address] Priyanka Zepeda MD Social History Tobacco Use Types Packs/Day Years Used Date Smoking Tobacco: Never Assessed Comments Unknown Sex and Gender Information Value Date Recorded Sex Assigned at Not on file Legal Sex Female 5:47 PM CDT Gender Identity Female 07/17/2022 10:27 AM AUDIO VISUAL DESIGN ENGINEER Sexual Orientation Straight 07/17/2022 10 :27 AM AUDIO VISUAL DESIGN ENGINEER documented as of this encounter Plan of Treatment Upcoming Encounters Date Type Department Care Team (Late st Contact Info) Description 07/25/2024 10:00 AM AUDIO VISUAL DESIGN ENGINEER Office Visit [facility] Medical Group Family & Internal Medicine - [place] [address] [place] [address] Keyonna Armstrong APNP [address] [place] [address] 07/31/2024 10:15 AM AUDIO VISUAL DESIGN ENGINEER Office Visit [facility] THREE [facility], [place] [address] [place] [address] Pepe Mitchell MD Three [facility]. [facility] [address] [place] [address] documented as of this encounter Visit Diagnoses Diagnosis Hemorrhage Hemorrhage, unspecified documented in this encounter Care Teams Aviation Technical Systems Specialist Relationship Specialty Start Date End Date Royer Hidalgo MD PCP - General 04/25/16 09/14/16 Royer Hidalgo MD PCP - General 05/14/15 04/24/16 Priyanka Zepeda MD PCP - General 04/22/13 05/13/15 Priyanka Zepeda MD PCP - General 10/28/12 04/21/13 documented as of this encounter
--- OUTSIDE RECORDS SUMMARY | 2024-07-11 00:23 | XMS_ITS | Encounter Summary ---
Author Organization [facility] Address [facility]. [place], [place] [address] [place] [address] Care Team Providers Care Casing Wringer Operator Name Role Phone Royer Hidalgo MD Primary Care Provider [phone] Royer Hidalgo MD Primary Care Provider [phone] Priyanka Zepeda MD Primary Care Provider Unavailab le Encounter Details Date Type Department Care Team (Late Contact Info) Description 04/22/2013 Abstract [facility] [address] Priyanka Zepeda MD Social History Tobacco Use Types Packs/Day Years Used Date Smoking Tobacco: Never Assessed Comments Unknown Sex and Gender Information Value Date Recorded Sex Assigned at Not on file Legal Sex Female 5:47 PM CDT Gender Identity Female 07/17/2022 10:27 AM STEAM TENDER Sexual Orientation Straight 07/17/2022 10 :27 AM STEAM TENDER documented as of this encounter Plan of Treatment Upcoming Encounters Date Type Department Care Team (Late Contact Info) Description 07/25/2024 10:00 AM STEAM TENDER Office Visit [facility] Medical Group Family & Internal Medicine - [place] [address] [place] [address] Keyonna Armstrong APNP [address] [place] [address] 07/31/2024 10:15 AM STEAM TENDER Office Visit [facility] THREE [facility], [address] [address] Pepe Mitchell MD Three [facility] [address] [place] [address] documented as of this encounter Visit Diagnoses Diagnosis Type 2 or unspecified type diabetes mellitus ([facility]) documented in this encounter Care Teams Casing Wringer Operator Relationship Specialty Start Date End Date Royer Hidalgo MD PCP - General 04/25/16 09/14/16 Royer Hidalgo MD PCP - General 05/14/15 04/24/16 Priyanka Zepeda MD PCP - General 04/22/13 05/13/15 documented as of this encounter
--- OUTSIDE RECORDS SUMMARY | 2024-07-11 00:23 | XMS_ITS | Encounter Summary ---
Author Organization [facility] Address [address] [place] [address]. [place], [place] [address] [place] [address] Care Team Providers Care Lead Nuclear Medicine Technologist Name Role Phone Royer Hidalgo MD Primary Care Provider [phone] Royer Hidalgo MD Primary Care Provider [phone] Priyanka Zepeda MD Primary Care Provider Unavailab le Priyanka Zepeda MD Primary Care Provider Unavailab le Encounter Details Date Type Department Care Team (Late st Contact Info) Description 10/28/2012 Abstract [facility] Medical Group Family & Internal Medicine [address] [phone] Priyanka Zepeda MD Social History Tobacco Use Types Packs/Day Years Used Date Smoking Tobacco: Never Assessed Comments Unknown Sex and Gender Information Value Date Recorded Sex Assigned at Not on file Legal Sex Female 5:47 PM CDT Gender Identity Female 07/17/2022 10:27 AM ASSISTIVE TECHNOLOGY TRAINER Sexual Orientation Straight 07/17/2022 10 :27 AM ASSISTIVE TECHNOLOGY TRAINER documented as of this encounter Last Filed Vital Signs Vital Sign Reading Time Taken Comments Blood Pressure 153/96 10/28/2012 9:36 AM CDT Pulse 89 10/28/2012 9:36 AM CDT Temperature - - Respiratory Rate - - Oxygen Saturation - - Inhaled Oxygen Concentration - - Weight 150.1 kg (331 lb) 10/28/2012 9:36 AM CDT Height - - Body Mass Index 53.42 06/19/2012 10:18 AM ASSISTIVE TECHNOLOGY TRAINER documented in this encounter Progress Notes * [...] PTT - Partial Thromboplas Time Requested for: [id number] Ordered; For: Bleeding (459.0); Ordered By: Priyanka Zepeda Perform: Other Lab Due: 07Nov2012 2. Call if: You have any warning signs for skin cancer. Requested for: [id number] Ordered; For: Health Maintenance (V70.0); Ordered By: Priyanka Zepeda 3. CBC with Diff Requested for: [id number] Ordered; For: Nontraumatic Hematoma Of Soft Tissue (729.92), Bleeding (459.0); Ordered By: Priyanka Zepeda Perform: Other Lab Due: [id number] 4. PT / INR - Protime Requested for: [id number] Ordered; For: Nontraumatic Hematoma Of Soft Tissue (729.92), Bleeding (459.0); Ordered By: Priyanka Zepeda Perform: Other Lab Due: 07Nov2012 Signatures Electronically signed by : Priyanka Zepeda M.D.; Oct 28 2012 2:55PM (Author) STIVE TECHNOLOGY TRAINER documented in this encounter Plan of Treatment Upcoming Encounters Date Type Department Care Team (Late st Contact Info) Description 07/25/2024 10:00 AM ASSISTIVE TECHNOLOGY TRAINER Office Visit [facility] Medical Group Family & Internal Medicine - [place] [address] [place] [address] Keyonna Armstrong APNP [address] [place] [address] 07/31/2024 10:15 AM ASSISTIVE TECHNOLOGY TRAINER Office Visit [facility] THREE [facility] [address] [place] [address] Pepe Mitchell MD Three [facility]. [facility] [address] [place] [address] documented as of this encounter Visit Diagnoses Not on filedocumented in this encounter Care Teams Lead Nuclear Medicine Technologist Relationship Specialty Start Date End Date Royer Hidalgo MD PCP - General 04/25/16 09/14/16 Royer Hidalgo MD PCP - General 05/14/15 04/24/16 Priyanka Zepeda MD PCP - General 04/22/13 05/13/15 Priyanka Zepeda MD PCP - General 10/28/12 04/21/13 documented as of this encounter
--- OUTSIDE RECORDS SUMMARY | 2024-07-11 00:23 | XMS_ITS | Encounter Summary ---
Author Organization [facility] Address [facility]6 [facility] [place], [place] [address] [place] [address] Care Team Providers Care Qa Automation Developer Name Role Phone Royer Hidalgo MD Primary Care Provider [phone] Royer Hidalgo MD Primary Care Provider [phone] Priyanka Zepeda MD Primary Care Provider Unavailab le Encounter Details Date Type Department Care Team (Latest Contact Info) Description 12/01/2013 Abstract [facility] Medical Group Social History Tobacco Use Types Packs/Day Years Used Date Smoking Tobacco: Never Assessed Comments Unknown Sex and Gender Information Value Date Recorded Sex Assigned at Not on file Legal Sex Female 5:47 PM CDT Gender Identity Female 07/17/2022 10:27 AM FOREST LANDSCAPE ECOLOGY PROFESSOR Sexual Orientation Straight 07/17/2022 10 :27 AM FOREST LANDSCAPE ECOLOGY PROFESSOR documented as of this encounter Progress [...] reordered the Time Released [place] to the [facility] Marcella Gant - 01 Dec 2013 12:35 PM TASK EDITED Royer Hidalgo - 01 Dec 2013 2:27 PM TASK EDITED Okay to order, but I doubt they'll cover it. Marcella Gant - 01 Dec 2013 2:37 PM TASK EDITED Ki CR called to [facility]. Pt will return call to clinic for an alternative if med is not covered. Current Meds 1. Enpresse-28 Oral Tablet; TAKE 1 TABLET DAILY DIRECTED; Therapy: 30May2012 to (Evaluate:22Dec2013) Requested for: 09Jun2013; Last Rx:09Jun2013 Ordered 2. Gas Relief CAPS; Therapy: (Recorded:23Sep2013) to Recorded 3. Hydrochlorothiazide 25 MG Oral Tablet; TAKE ONE TABLET BY MOUTH EVERY DAY; Therapy: 20May2012 to (Evaluate:[id number]) Requested for: [id number]; Last Rx:[id number] Ordered 4. Hydrocodone-Acetaminophen 5-325 MG Oral Tablet; TAKE 1 TO 2 TABLETS EVERY 4 TO 6 HOURS NEEDED FOR PAIN. NO MORE THAN 8 TABLETS PER DAY; Therapy: 25Sep2013 to (Evaluate:27Sep2013); Last Rx:25Sep2013 Ordered 5. LORazepam 0.5 MG Oral Tablet; Take 1 tablet twice a day; Therapy: [id number] to (Evaluate:[id number]) Requested for: 10Nov2013; Last Rx:[id number] Ordered 6. MetFORMIN HCl - 500 MG Oral Tablet; Therapy: 24Dec2011 to Recorded 7. Multivitamins TABS; Therapy: (Recorded:23Sep2013) to Recorded 8. Pantoprazole Sodium 40 MG Oral Tablet Delayed Release; TAKE ONE TABLET BY MOUTH EVERY DAY; Therapy: 08Jun2012 to (Evaluate:[id number]) Requested for: 16Jun2013; Last Rx:16Jun2013 Ordered 9. Sulfamethoxazole-TMP DS 800-160 MG Oral Tablet; TAKE 1 TABLET TWICE DAILY UNTIL FINISHED; Therapy: 25Sep2013 to (Evaluate:02Oct2013) Requested for: 25Sep2013; Last Rx:25Sep2013 Ordered 10. TraZODone HCl - 50 MG Oral Tablet; Take 1-2 tablets at bedtime as needed for sleep; Therapy: 57Mxn5532 to (Last Rx:[id number]) Requested for: [id number] Ordered 11. Venlafaxine HCl ER 75 MG [...] Royer Hidalgo M.D.; Dec 01 2013 2:40PM FOREST LANDSCAPE ECOLOGY PROFESSOR (Author) Electronically signed by : Royer Hidalgo M.D.; Dec 01 2013 2:40PM FOREST LANDSCAPE ECOLOGY PROFESSOR (Author) ST LANDSCAPE ECOLOGY PROFESSOR documented in this encounter Plan of Treatment Upcoming Encounters Date Type Department Care Team (Late st Contact Info) Description 07/25/2024 10:00 AM FOREST LANDSCAPE ECOLOGY PROFESSOR Office Visit [facility] Medical Group Family & Internal Medicine - [place] [address] [place] [address] Keyonna Armstrong APNP [address] [place] [address] 07/31/2024 10:15 AM FOREST LANDSCAPE ECOLOGY PROFESSOR Office Visit [facility] THREE [facility] [address] [place] [address] Pepe Mitchell MD [facility]. [facility] [address] [place] [address] documented as of this encounter Visit Diagnoses Not on filedocumented in this encounter Care Teams Qa Automation Developer Relationship Specialty Start Date End Date Royer Hidalgo MD PCP - General 04/25/16 09/14/16 Royer Hidalgo MD PCP - General 05/14/15 04/24/16 Priyanka Zepeda MD PCP - General 04/22/13 05/13/15 documented as of this encounter
--- OUTSIDE RECORDS SUMMARY | 2024-07-11 00:23 | XMS_ITS | Encounter Summary ---
Author Organization [facility] Address [facility]6 [facility]. [place], [place] [address] [place] [address] Care Team Providers Care Sox Analyst Name Role Phone Royer Hidalgo MD Primary Care Provider [phone] Royer Hidalgo MD Primary Care Provider [phone] Priyanka Zepeda MD Primary Care Provider Unavailab Priyanka Cruz MD Primary Care Provider Unavailab lew Encounter Details Date Type Department Care Team (Latest Contact Info) Description 03/31/2013 Abstract [facility] Medical Group Social History Tobacco Use Types Packs/Day Years Used Date Smoking Tobacco: Never Assessed Comments Unknown Sex and Gender Information Value Date Recorded Sex Assigned at Not on file Legal Sex Female 5:47 PM CDT Gender Identity Female 07/17/2022 10:27 AM BACK PANEL PADDER Sexual Orientation Straight 07/17/2022 10 :27 AM BACK PANEL PADDER documented as of this encounter Progress Notes * Generic Conversion MD Marti - 03/31/2013 1:49 PM CDT Message Recorded as Task Date: 03/31/2013 11:49 AM, Created By: Joanne Urbina Task Name: Renew Medication Assigned To: [facility] Team Katelyn Regarding Patient: Veronica Evangelista, Status: Active Comment: Joanne Urbina - 31 Mar 2013 11:49 AM TASK CREATED Caller: Self; Renew Medication; Pt was told by Pharm to give us call for her Ambien 12.5mg ER refill that was denied. She said she should be been due a few days ago. formerly [facility] Message: pt was put on elavil thats why it was denied. will send in new rx. Plan 1. Zolpidem Tartrate ER 12.5 MG Oral Tablet Extended Release; TAKE 1 TABLET AT BEDTIME NEEDED FOR SLEEP; Therapy: 24Jul2012 to (Evaluate:29Jul2013); Last Rx:31Mar2013 Signatures Electronically signed by : Demetra Delcid, ; Mar 31 2013 1:50PM (Author) PANEL PADDER documented in this encounter Plan of Treatment Upcoming Encounters Date Type Department Care Team (Late st Contact Info) Description 07/25/2024 10:00 AM BACK PANEL PADDER Office Visit [facility] Medical Group Family & Internal Medicine - [place] [id number] [place] [address] Keyonna Armstrong APNP [address] [place] [address] 07/31/2024 10:15 AM BACK PANEL PADDER Office Visit [facility] [address] [place] [address] Pepe Mitchell MD Three [facility]. [facility] [address] [place], [place] [id number] documented as of this encounter Visit Diagnoses Not on filedocumented in this encounter Care Teams Sox Analyst Relationship Specialty Start Date End Date Royer Hidalgo MD PCP - General 04/25/16 09/14/16 Royer Hidalgo MD PCP - General 05/14/15 04/24/16 Priyanka Zepeda MD PCP - General 04/22/13 05/13/15 Priyanka Zepeda MD PCP - General 10/28/12 04/21/13 documented as of this encounter
--- OUTSIDE RECORDS SUMMARY | 2024-07-11 00:23 | XMS_ITS | Encounter Summary ---
Author Organization [facility] Address [facility]. [place], [place] [address] [place] [address] Care Team Providers Care Zoology Technical Officer Name Role Phone Royer Hidalgo MD Primary Care Provider [phone] Royer Hidalgo MD Primary Care Provider [phone] Priyanka Zepeda MD Primary Care Provider Unavailab le Encounter Details Date Type Department Care Team (Latest Contact Info) Description 08/06/2013 Abstract [facility] Medical Group Social History Tobacco Use Types Packs/Day Years Used Date Smoking Tobacco: Never Assessed Comments Unknown Sex and Gender Information Value Date Recorded Sex Assigned at Not on file Legal Sex Female 5:47 PM CDT Gender Identity Female 07/17/2022 10:27 AM THERAPY MANAGER Sexual Orientation Straight 07/17/2022 10 :27 AM THERAPY MANAGER documented as of this encounter Plan of Treatment Upcoming Encounters Date Type Department Care Team (Late st Contact Info) Description 07/25/2024 10:00 AM THERAPY MANAGER Office Visit [facility] Medical Group Family & Internal Medicine [facility] [address] [place] [address] Keyonna Armstrong APNP [address] [place] [address] 07/31/2024 10:15 AM THERAPY MANAGER Office Visit [facility], [facility] [address] [place], [place] [phone] Pepe Mitchell MD [facility]. [place] [address] [place], [place] [phone] documented as of this encounter Visit Diagnoses Not on filedocumented in this encounter Care Teams Zoology Technical Officer Relationship Specialty Start Date End Date Royer Hidalgo MD PCP - General 04/25/16 09/14/16 Royer Hidalgo MD PCP - General 05/14/15 04/24/16 Priyanka Zepeda MD PCP - General 04/22/13 05/13/15 documented as of this encounter
--- OUTSIDE RECORDS SUMMARY | 2024-07-11 00:23 | XMS_ITS | Encounter Summary ---
Author Organization [facility] Address [address] [place] [address]. [place], [place] [address] [place] [address] Care Team Providers Care Cafe Site Attendant Name Role Phone Royer Hidalgo MD Primary Care Provider [phone] Royer Hdialgo MD Primary Care Provider [phone] Priyanka Zepeda MD Primary Care Provider Unavailab le Encounter Details Date Type Department Care Team (Late st Contact Info) Description 04/22/2013 Abstract [facility] Medical Group Family & Internal Medicine [address] [address] Priyanka Zepeda MD Social History Tobacco Use Types Packs/Day Years Used Date Smoking Tobacco: Never Assessed Comments Unknown Sex and Gender Information Value Date Recorded Sex Assigned at Not on file Legal Sex Female 5:47 PM CDT Gender Identity Female 07/17/2022 10:27 AM PROFESSOR OF LANGUAGES Sexual Orientation Straight 07/17/2022 10 :27 AM PROFESSOR OF LANGUAGES documented as of this encounter Last Filed Vital Signs Vital Sign Reading Time Taken Comments Blood Pressure 133/88 04/22/2013 10:00 AM CDT Pulse 88 04/22/2013 10:00 AM CDT Temperature - - Respiratory Rate - - Oxygen Saturation - - Inhaled Oxygen Concentration - - Weight 152.4 kg (336 lb) 04/22/2013 10:00 AM CDT Height - - Body Mass Index 54.23 06/19/2012 10:18 AM PROFESSOR OF LANGUAGES documented in this encounter Progress Notes * [...] BEDTIME; Therapy: 25Feb2013 to (Evaluate:30Jul2013) Requested for: [id number]; Last Rx:[id number] Ordered; For: Insomnia (780.52); Rx By: Priyanka Zepeda; Dispense: 30 Days ; #:30 Tablet; Refill: 3; Verified Transmission to [facility]; Last Updated By: Demetra Delcid 2. Atenolol 50 MG Oral Tablet; Therapy: 08Apr2012 to Recorded; Dispense: 90 Days ; #:180 TABS; Refill: 0; Record; Last Updated By: Demetra Delcid 3. Hydrochlorothiazide 25 MG Oral Tablet; TAKE ONE TABLET BY MOUTH EVERY DAY; Therapy: 20May2012 to (Evaluate:20Mar2014) Requested for: [id number]; Last Rx:[id number] Ordered; For: Hypertension (401.9); Rx By: Priyanka Zepeda; Dispense: 90 Days ; #:90 Tablet; Refill: 3; Verified Transmission to [facility]; Last Updated By: Demetra Delcid 4. LORazepam 0.5 MG Oral Tablet; TK 1 T PO BID; Last Rx:[id number] Ordered; For: Insomnia (780.52), Anxiety (300.00); Rx [...] Mellitus (250.00); Ordered By: Priyanka Zepeda Perform: [facility] Lab Due: 29Apr2013; Last Updated By: Joanne Urbina 3. Compr Metabolic Prof ( CMP ) Requested for: 22Apr2013 Ordered; For: Type 2 Diabetes Mellitus (250.00); Ordered By: Priyanka Zepeda Perform: . [facility] Lab Due: 29Apr2013; Last Updated By: Joanne Urbina 4. Hemoglobin A1C Requested for: 22Apr2013 Ordered; For: Type 2 Diabetes Mellitus (250.00); Ordered By: Priyanka Zepeda Perform: [facility] Lab Due: 29Apr2013; Last Updated By: Joanne Urbina 5. Urine Microalbumin Ordered; For: Type 2 Diabetes Mellitus (250.00); Ordered By: Priyanka Zepeda Perform: [facility] Lab Due: 29Apr2013 6. Urine Microalbumin Requested for: 22Apr2013 Ordered; For: Type 2 Diabetes Mellitus (250.00); Ordered By: Priyanka Zepeda Perform: Other Lab Due: 29Apr2013 Signatures Electronically signed by : Priyanka Zepeda M.D.; Apr 22 2013 2:29PM (Author) ESSOR OF LANGUAGES documented in this encounter Plan of Treatment Upcoming Encounters Date Type Department Care Team (Late st Contact Info) Description 07/25/2024 10:00 AM PROFESSOR OF LANGUAGES Office Visit [facility] Medical Group Family & Internal Medicine - [place] [address] [place] [address] Keyonna Armstrong APNP [address] [place] [address] 07/31/2024 10:15 AM PROFESSOR OF LANGUAGES Office Visit [facility] [address] [place] [address] Pepe Mitchell MD Three [facility]. [facility] [address] [place], [place] [address] documented as of this encounter Procedures Procedure [...] MD LABORATORY Final Result Performing Organization Address [facility] Co de Phone Number [facility] [...] MD LABORATORY Final Result Performing Organization Address [facility] de Phone Number [facility] TO EPIC CONVERSION [...] MD LABORATORY Final Result Performing Organization Address [facility] Co de Phone Number [facility] TO EPIC CONVERSION documented in this encounter Visit Diagnoses Not on filedocumented in this encounter Care Teams Cafe Site Attendant Relationship Specialty Start Date End Date Royer Hidalgo MD PCP - General 04/25/16 09/14/16 Royer Hidalgo MD PCP - General 05/14/15 04/24/16 Priyanka Zepeda MD PCP - General 04/22/13 05/13/15 documented as of this encounter
--- OUTSIDE RECORDS SUMMARY | 2024-07-11 00:38 | XMS_ITS | Encounter Summary ---
Author Organization [employer] Care Team Providers Care Animal Ecologist Name Role Phone Keyonna Armstrong APRN, BETY [...] on file Legal Sex Female 1:39 PM SALOON KEEPER Gender Identity Not on file Sexual Orientation Not on file documented as of this encounter Functional Status * Question Answer Date of Assessment Author Little interest or pleasure in doing things Not at all 07/26/2023 1:53 PM Ozzie Burk CMA Feeling down, depressed, or hopeless Not at all 07/26/2023 1:53 PM SALOON KEEPER Sasha Salamanca CMA * Over the past [...] Office Visit [facility] [address] [address] Woody Horvath MD [address] [place] [phone] documented as of this encounter Visit Diagnoses Not on filedocumented in this encounter Care Teams Animal Ecologist Relationship Specialty Start Date End Date Keyonna Armstrong APRN, BETY [address] [place] [address] PCP - General Family Medicine 10/19/22 documented as of this encounter
--- OUTSIDE RECORDS SUMMARY | 2024-07-11 00:38 | XMS_ITS | Encounter Summary ---
Author Organization [facility] Address [address] [place] [address] Care Team Providers Care Boat Person Name Role Phone Unavailable Primary Care Provider Unavailabl e Encounter Details Date Type Department Care Team (Late st Contact Info) Description 06/12/2020 2:00 PM STRIP MINE SUPERVISOR Rapid Evaluation [facility] Community Testing [facility] [address] [place] [address] Social History Tobacco Use Types Packs/Day Years Used Date Smoking Tobacco: Never Assessed Comments Unknown Sex and Gender Information Value Date Recorded Sex Assigned at Not on file Legal Sex Female 1:39 PM STRIP MINE SUPERVISOR Gender Identity Not on file Sexual Orientation Not on file documented as of this encounter Plan of Treatment Upcoming Encounters Date Type Department Care Team (Late st Contact Info) Description 03/30/2025 9:45 AM CDT Office Visit [facility] [address] [address] Woody Horvath MD [address] [place] [address] documented as of this encounter Visit Diagnoses Not on filedocumented in this encounter
--- OUTSIDE RECORDS SUMMARY | 2024-07-11 00:38 | XMS_ITS | Encounter Summary ---
Author Organization [facility] Address [address] [place] [address] Phone Care Team Providers Care Knocker Off Name Role Phone Keyonna Armstrong APRN, BETY Primary Care Provider + Encounter Details Date Type Department Care Team (Late Contact Info) Description 02/28/2024 Telephone [facility] [address] [address] Woody Horvath MD [address] [address] Social History Tobacco Use Types Packs/Day Years Used Date Smoking Tobacco: Never Smokeless Tobacco: Never Alcohol Use Standard Drinks/Week Comments Not Currently 0 (1 standard drink = 0.6 oz pur e alcohol) Comments Unknown Sex and Gender Information Value Date Recorded Sex Assigned at Not on file Legal Sex Female 1:39 PM METALLURGICAL ENGINEERING TEACHER Gender Identity Not on file Sexual [...] Department Care Team (Late Contact Info) Description 03/30/2025 9:45 AM CDT Office Visit [facility] [place] [address] [place] [phone] Woody Horvath MD [address] [address] documented as of this encounter Visit Diagnoses Not on filedocumented in this encounter Care Teams Knocker Off Relationship Specialty Start Date End Date Keyonna Armstrong APRN, DEVELOPMENT LEAD [address] [place] [address] PCP - General Family Medicine 10/19/22 documented as of this encounter
--- OUTSIDE RECORDS SUMMARY | 2024-07-11 00:38 | XMS_ITS | Encounter Summary ---
Author Organization [facility] Address [address] [place] [address] Care Team Providers Care Manager Mba Name Role Phone Unavailable Primary Care Provider Unavailabl e Encounter Details Date Type Department Care Team (Late st Contact Info) Description 08/25/2020 Lab Requisition [facility] Community Testing [facility] [address] [place] [address] Clark Lamas MD [address] [place] [address] [address] [place], [place] [address] Social History Tobacco Use Types Packs/Day Years Used Date Smoking Tobacco: Never Assessed Comments Unknown Sex and Gender Information Value Date Recorded Sex Assigned at Not on file Legal Sex Female 1:39 PM FIELD SERVICE POULTRY TECHNICIAN Gender Identity Not on file Sexual Orientation Not on file documented as of this encounter Plan of Treatment Upcoming Encounters Date Type Department Care Team (Late st Contact Info) Description 03/30/2025 9:45 AM CDT Office Visit [facility] [address] [phone] Woody Horvath MD [facility] [facility] [address] [place], [place] [phone] documented as of this encounter Procedures Procedure Name Priority Date/Time Associated Diagnosis Comments SARS-COV-2 PCR [facility] ONLY Routine 08/25/2020 1:50 PM FIELD SERVICE POULTRY TECHNICIAN documented in this encounter Visit Diagnoses Not on filedocumented in this encounter
--- OUTSIDE RECORDS SUMMARY | 2024-07-11 00:38 | XMS_ITS | Encounter Summary ---
Author Organization [facility] Address [address] [place] [address] Phone Care Team Providers Care Electrical Supervisor Name Role Phone Keyonna Armstrong APRN, BETY Primary Care Provider + Reason for Visit * Reason Comments Follow-up Encounter Details Date Type Department Care Team (Latest Contact Info) Description 12/21/2022 1:15 PM CDT Office Visit [facility] [place] [address] [place] [address] Cindy Childress, CASHIER GAMBLING, CORPORATE QUALITY MANAGER [address] [place] [address] Lymphocytosis (Primary Dx) Social History Tobacco Use Types Packs/Day Years Used Date Smoking Tobacco: Never Smokeless Tobacco: Never Alcohol Use Standard Drinks/Week Comments Not Currently 0 (1 standard drink = 0.6 oz pur e alcohol) Comments Unknown Sex and Gender Information Value Date Recorded Sex Assigned at Not on file Legal Sex Female 1:39 PM NUCLEAR TEST TECHNICIAN Gender Identity Not on file [...] y.o. : 1970 [facility] Date: 12/21/2022 Care Team: Current Providers [...] lab results shown below reviewed. Cindy Childress, DIESEL ENGINE PIPE FITTER-C Woody Horvath MD Vitals: Vitals: 12/21/22 1342 [...] 760 - 4,000 cells/uL Final ??? Absolute [place] Count 11/13/2022 747 160 - 1,200 cells/uL [...] subunit ??? CD4 11/13/2022 17.25 % Final [place] T-cells, thymocyte subset, monocytes ??? CD5 11/13/2022 [...] B-Cell associated antigen in B-Cell subset ??? [place] 11/13/2022 22.1 % Final [place] Ig light chain, B-cells, plasma cells ??? [...] was performed at [facility] [address], [place] [address]. These tests were developed and their performance characteristics were determined by [facility]. They may not be cleared or [...] AM CDT Office Visit [facility] [address] [place] [address] Woody Horvath MD [facility] [place] [address] documented as of this encounter Results * LACTATE DEHYDROGENASE (LD) (07/26/2023 1:47 PM NUCLEAR TEST TECHNICIAN) LDH 164 140 - 271 U/L CANCER COMPLIANCE VICE PRESIDENT [facility] Blood 07/26/2023 1:47 PM NUCLEAR TEST TECHNICIAN Narrative CANCER COMPLIANCE VICE PRESIDENT [facility] - 07/26/2023 2:36 PM NUCLEAR TEST TECHNICIAN Release to patient->Immediate Cindy Childress CASHIER GAMBLING, CORPORATE QUALITY MANAGER CHEMISTRY ORDERABLES Final Result CANCER COMPLIANCE VICE PRESIDENT [facility] [place] [address], * (ABNORMAL) COMPLETE BLOOD COUNT (CBC) WITH DIFF (07/26/2023 1:47 PM NUCLEAR TEST TECHNICIAN) WBC 10.8(H) 4.0 - 10.0 10*3/uL CANCER COMPLIANCE VICE PRESIDENT [facility] HGB 14.5 11.2 - 15.7 g/dL [facility] HCT 45.2(H) 34.1 - 44.9 % CANCER COMPLIANCE VICE PRESIDENT [facility] PLT 358 163 - 369 10*3/uL CANCER COMPLIANCE VICE PRESIDENT [facility] MPV 8.9(L) 9.4 - 12.4 fL CANCER COMPLIANCE VICE PRESIDENT [facility] RBC 4.44 3.93 - 5.22 10*6/uL CANCER COMPLIANCE VICE PRESIDENT [facility] MCV 102(H) 79 - 95 fL CANCER COMPLIANCE VICE PRESIDENT [facility] MCH 32.7(H) 25.6 - 32.2 pg CANCER COMPLIANCE VICE PRESIDENT [facility] MCHC 32.1(L) 32.2 - 36.5 g/dL CANCER COMPLIANCE VICE PRESIDENT [facility] RDW 15.6(H) 11.6 - 14.4 % CANCER COMPLIANCE VICE PRESIDENT [facility] Absolute Neutrophil Count 5,600 cells/uL [facility] Absolute Seg Count 5,600 1,440 - 6,600 cells/uL CANCER COMPLIANCE VICE PRESIDENT [facility] Absolute Lymph Count 4,523(H) 760 - 4,000 cells/uL CANCER COMPLIANCE VICE PRESIDENT [facility] Absolute [place] Count 646 160 - 1,200 cells/uL CANCER COMPLIANCE VICE PRESIDENT [facility] Segmented Neutrophils 52 36 - 66 % CANCER COMPLIANCE VICE PRESIDENT [facility] Lymphocytes 42(H) 19 - 40 % [facility] C ENTER [facility] Monocytes 6 4 - 12 % CANCER KARLOS TER [facility] WBC Estimate High CANCER COMPLIANCE VICE PRESIDENT [facility] Platelet Estimate Normal CANCER COMPLIANCE VICE PRESIDENT [facility] RBC Morphology Abnormal CANCE R COMPLIANCE VICE PRESIDENT [facility] Macrocytosis 1+ CANCER COMPLIANCE VICE PRESIDENT [facility] Anisocytosis 1+ CANCER COMPLIANCE VICE PRESIDENT [facility] Blood 07/26/2023 1:47 PM NUCLEAR TEST TECHNICIAN Narrative CANCER COMPLIANCE VICE PRESIDENT [facility] - 07/26/2023 4:05 PM NUCLEAR TEST TECHNICIAN Release to patient->Immediate Cindy Childress APRN, CORPORATE QUALITY MANAGER HEMATOLOGY ORDERABLES Final Result CANCER COMPLIANCE VICE PRESIDENT [facility] [place] [address], documented in this encounter Visit Diagnoses Diagnosis Lymphocytosis- Primary Lymphocytosis (symptomatic) Lymphocytosis Lymphocytosis (symptomatic) documented in this encounter Care Teams Electrical Supervisor Relationship Specialty Start Date End Date Keyonna Armstrong APRN, CORPORATE QUALITY MANAGER [address] [place] [address] PCP - General Family Medicine 10/19/22 documented as of this encounter
--- OUTSIDE RECORDS SUMMARY | 2024-07-11 00:38 | XMS_ITS | Encounter Summary ---
Author Organization [facility] Address [address] [place] [address] Care Team Providers Care Metal Sash Setter Name Role Phone Unavailable Primary Care Provider Unavailabl e Encounter Details Date Type Department Care Team (Late st Contact Info) Description 08/25/2020 2:00 PM FIREBRICK LAYER Rapid Evaluation [facility] Community Testing [facility] [address] [place] [address] Social History Tobacco Use Types Packs/Day Years Used Date Smoking Tobacco: Never Assessed Comments Unknown Sex and Gender Information Value Date Recorded Sex Assigned at Not on file Legal Sex Female 1:39 PM FIREBRICK LAYER Gender Identity Not on file Sexual Orientation Not on file documented as of this encounter Plan of Treatment Upcoming Encounters Date Type Department Care Team (Late st Contact Info) Description 03/30/2025 9:45 AM CDT Office Visit [facility] [address] [address] Woody Horvath MD [address] [place] [address] documented as of this encounter Visit Diagnoses Not on filedocumented in this encounter
--- OUTSIDE RECORDS SUMMARY | 2024-07-11 00:38 | XMS_ITS | Encounter Summary ---
Author Organization [employer] Care Team Providers Care Link And Link Knitting Machine Operator Name Role Phone Keyonna Armstrong APRN, BETY [...] on file Legal Sex Female 1:39 PM TURKEY FARMER Gender Identity Not on file Sexual Orientation [...] at all 11/13/2022 1:31 PM CDT Claritza Peerra MA * Over the past 2 weeks, [...] CDT Office Visit [facility] [address] [place] [phone] Woody Horvath MD [address] [address] documented as of this encounter Visit Diagnoses Not on filedocumented in this encounter Care Teams Link And Link Knitting Machine Operator Relationship Specialty Start Date End Date Keyonna Armstrong APRN, WAREHOUSE GENERAL LABORER [address] [place] [phone] PCP - General Family Medicine 10/19/22 documented as of this encounter
--- OUTSIDE RECORDS SUMMARY | 2024-07-11 00:38 | XMS_ITS | Encounter Summary ---
Author Organization [facility] Address [address] [place] [address] Phone Care Team Providers Care Tallow Maker Name Role Phone Keyonna Armstrong APRN, BETY Primary Care Provider + Encounter Details Date Type Department Care Team (Late st Contact Info) Description 11/13/2022 2:05 PM CDT Lab [facility] [address] [address] Lab, Cc 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 Gender Identity Not on file Sexual Orientation [...] CDT Office Visit [facility] [address] [phone] Woody Horvath MD [address] [place], [place] [phone] documented as of this encounter Procedures Procedure Name Priority Date/Time Associated Diagnosis Comments CCS-ACUTE LEUKEMIA PNL ([place]) [place] B504-2 Routine 11/13/2022 2:11 PM CDT LACTATE DEHYDROGENASE (LD) Routine 11/13/2022 2:11 PM CDT Lymphocytosis COMPLETE BLOOD COUNT (CBC) WITH DIFF Routine 11/13/2022 2:11 PM CDT Lymphocytosis documented in this encounter Results * CCS-ACUTE LEUKEMIA PNL [place]) [place] B504-2 (11/13/2022 2:11 PM CDT) [facility] ACUTE LEUKEMIA FLOW PC Normal [facility] Comment: INTERPRETATION PERIPHERAL BLOOD: - [...] subunit CD4 17.25 % [facility] Comment:[place] T-cells, thym ocyte subset, monocytes CD5 35.03 [...] Comment:B-Cell associated an tigen in B-Cell subset [place] 22.1 % [facility] Comment:[place] Ig light chain , B-cells, plasma cells [...] Comment:Granulocytes, NK faina ls CD33 15.74 % [facility] Comment:Myeloid cells, monoc ytes CD64 6.00 % [facility] Comment:Monocytes CD34 0.06 % [facility] Comment:Precursor cells CD38 11.06 % [facility] Comment:Activated T, B, myel oid cells, B-cell subset CD117 0.46 % [facility] Comment:Stem cell receptor ( c-kit), myeloid cells HLA-DR 11.66 % [facility] Comment:MHC Class II Ag, B-c ells, activated T-cells, monocytes CD45 98.65 % [facility] Comment: Leukocyte common antigen DISCLAIMER: The technical component of Flow Cytometry was performed at [facility], [facility] [place] [address] ??[id number]. ??These tests were developed and their performance characteristics were determined by [facility]. ??They may not be cleared or approved by the U.S. Food and Drug Administration. ??The FDA has determined that such clearance or approval is not necessary. ?? These results may be used for clinical, investigational or for research purposes, and should be interpreted with other relevant clinicopathologic data. ELECTRONIC SIGNATURE: Lele Perez D.O. Hematopathologist, ex. [id number] This report was electronically signed. 11/13/2022 2:11 PM CDT Narrative [facility] - 11/15/2022 12:05 PM CDT Testing performed at: [employer]. [address] [place] [address], Sales Technician: ??Dr. Jalen Hoang M.D.; [employer] Accn#:[id number] us Woody Horvath MD PATHOLOGY/CYTOLOGY ORDERABLE S Final Result [facility] * (ABNORMAL) COMPLETE BLOOD COUNT (CBC) WITH DIFF (11/13/2022 2:11 PM CDT) WBC 12.5(H) 4.0 - 10.0 10*3/uL [facility] HGB 14.2 11.2 - 15.7 g/dL [facility] HCT 44.2 34.1 - 44.9 % [facility] PLT 333 163 - 369 10*3/uL [facility] MPV 9.0(L) 9.4 - 12.4 fL [facility] RBC 4.53 3.93 - 5.22 10*6/uL [facility] MCV 98(H) 79 - 95 fL [facility] MCH 31.3 25.6 - 32.2 pg [facility] MCHC 32.1(L) 32.2 - 36.5 g/dL [facility] RDW 14.4 11.6 - 14.4 % [facility] Absolute Neutrophil Count 5,603 cells/uL [facility] Absolute Seg Count 5,603 1,440 - 6,600 cells/uL [facility] Absolute Lymph Count 5,727(H) 760 - 4,000 cells/uL [facility] Absolute Early Count 747 160 - 1,200 cells/uL [facility] Absolute Eos Count 374(H) 0 - 300 cells/uL [facility] Segmented Neutrophils 45 36 - 66 % [facility] Lymphocytes 46(H) 19 - 40 % [facility] [place] Monocytes 6 4 - 12 % [facility] Eosinophils 3 0 - 3 % [facility] WBC Estimate High [facility] Platelet Estimate Normal [facility] RBC Morphology Abnormal [facility] Macrocytosis 1+ [facility] Blood 11/13/2022 2:11 PM CDT Narrative [facility] - 11/14/2022 8:20 AM CDT Release to patient->Immediate us Woody Horvath MD HEMATOLOGY ORDERABLES Final Result [facility] [address] [place] [address], * LACTATE DEHYDROGENASE (LD) (11/13/2022 2:11 PM CDT) LDH 166 140 - 271 U/L [facility] Blood 11/13/2022 2:11 PM CDT Narrative [facility] - 11/13/2022 3:30 PM CDT Release to patient->Immediate us Woody Horvath MD CHEMISTRY ORDERABLES Final R esult Performing Organization Address City/State/[facility] Co de Phone Number [facility] [address] [phone] documented in this encounter Visit Diagnoses Diagnosis Lymphocytosis Lymphocytosis (symptomatic) documented in this encounter Care Teams Tallow Maker Relationship Specialty Start Date End Date Keyonna Armstrong APRN, OCTAVE BOARD ASSEMBLER [address] [place] [phone] PCP - General Family Medicine 10/19/22 documented as of this encounter
--- OUTSIDE RECORDS SUMMARY | 2024-07-11 00:38 | XMS_ITS | Encounter Summary ---
Author Organization [facility] Address [address] [place] [address] Phone Care Team Providers Care Operations And Maintenance Manager Name Role Phone Keyonna Armstrong APRN, BETY Primary Care Provider + Encounter Details Date Type Department Care Team (Late st Contact Info) Description 03/31/2024 10:10 AM CDT Lab [facility] [address] [phone] Lab, Cc [facility] [place] Lymphocytosis Social History Tobacco Use Types Packs/Day Years Used Date Smoking Tobacco: Never Smokeless Tobacco: Never Alcohol Use Standard Drinks/Week Comments Not Currently 0 (1 standard drink = 0.6 oz pur e alcohol) Comments Unknown Sex and Gender Information Value Date Recorded Sex Assigned at Not on file 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 Gender Identity Not on file Sexual Orientation [...] AM CDT Office Visit [facility] [address] [place] [address] Woody Horvath MD [address] [place], [place] [phone] documented as of this encounter Procedures Procedure Name Priority Date/Time Associated Diagnosis Comments LACTATE DEHYDROGENASE (LD) Routine 03/31/2024 10:12 AM CDT Lymphocytosis COMPLETE BLOOD COUNT (CBC) WITH DIFF Routine 03/31/2024 10:12 AM CDT Lymphocytosis documented in this encounter Results * LACTATE DEHYDROGENASE (LD) (03/31/2024 10:12 AM CDT) LDH 147 140 - 271 U/L [facility] Blood 03/31/2024 10:1 2 AM CDT Narrative [facility] - 03/31/2024 10:57 AM CDT Release to patient->Immediate us Woody Horvath MD CHEMISTRY ORDERABLES Final R esult [facility] [place] [address], * (ABNORMAL) COMPLETE BLOOD COUNT (CBC) WITH DIFF (03/31/2024 10:12 AM CDT) WBC 12.2(H) 4.0 - 10.0 10*3/uL [facility] HGB 13.9 11.2 - 15.7 g/dL [facility] HCT 43.2 34.1 - 44.9 % [facility] PLT 411(H) 163 - 369 10*3/uL [facility] MPV 8.5(L) 9.4 - 12.4 fL [facility] RBC 4.32 3.93 - 5.22 10*6/uL [facility] PROC[facility] MCV 100(H) 79 - 95 fL [facility]IGMENT PROCESS[facility] MCH 32.2 25.6 - 32.2 pg [facility] PROC[facility] MCHC 32.2 32.2 - 36.5 g/dL [facility] RDW 14.0 11.6 - 14.4 % [facility] Absolute Neutrophil Count 5,958 cells/uL [facility] Absolute Seg Count 5,958 1,440 - 6,600 cells/uL [facility] PIGMENT PROCESS[facility] Absolute Lymph Count 4,864(H) 760 - 4,000 cells/uL [facility] PIGMENT PROCESS[facility] Absolute [place] Count 1,094 160 - 1,200 cells/uL [facility] PIGMENT PROCESSOR [facility] Absolute Eos Count 122 0 - 300 cells/uL [facility] PIGMENT PROCESS[facility] Absolute Baso Count 122(H) 0 - 100 cells/uL [facility]IGMENT PROC[facility] Segmented Neutrophils 49 36 - 66 % [facility] PIGMENT PROCESS[facility] Lymphocytes 40 19 - 40 % [facility] Monocytes 9 4 - 12 % [facility] Eosinophils 1 0 - 3 % [facility] Basophils 1 0 - 1 % [facility] WBC Estimate High [facility] PIGMENT PROCESS[facility] Platelet Estimate High [facility] PIGMENT PROCESSOR [facility] RBC Morphology Abnormal CANCE R PIGMENT PROCESSOR [facility] Macrocytosis 1+ [facility] PIGMENT PROCESS[facility] Blood 03/31/2024 10:1 2 AM CDT Narrative [facility] - 03/31/2024 12:57 PM CDT Release to patient->Immediate us Woody Horvath MD HEMATOLOGY ORDERABLES Final Result [facility] [place] [address], documented in this encounter Visit Diagnoses Diagnosis Lymphocytosis Lymphocytosis (symptomatic) documented in this encounter Care Teams Operations And Maintenance Manager Relationship Specialty Start Date End Date Keyonna Armstrong, NURSE [place], JUMPBASTING ARMHOLE BASTER [address] [place] [phone] PCP - General Family Medicine 10/19/22 documented as of this encounter
--- OUTSIDE RECORDS SUMMARY | 2024-07-11 00:38 | XMS_ITS | Encounter Summary ---
Author Organization [facility] Address [address] [place] [address] Care Team Providers Care Landfill Gas Technician Name Role Phone Unavailable Primary Care Provider Unavailabl e Encounter Details Date Type Department Care Team (Late st Contact Info) Description 06/26/2020 3:00 PM AIRLINE CUSTOMER SERVICE AGENT Rapid Evaluation [facility] Testing [facility] [address] [place] [address] Social History Tobacco Use Types Packs/Day Years Used Date Smoking Tobacco: Never Assessed Comments Unknown Sex and Gender Information Value Date Recorded Sex Assigned at Not on file Legal Sex Female 1:39 PM AIRLINE CUSTOMER SERVICE AGENT Gender Identity Not on file Sexual Orientation Not on file documented as of this encounter Plan of Treatment Upcoming Encounters Date Type Department Care Team (Late st Contact Info) Description 03/30/2025 9:45 AM CDT Office Visit [facility] [address] [address] Woody Horvath MD [address] [place] [address] documented as of this encounter Visit Diagnoses Not on filedocumented in this encounter
--- OUTSIDE RECORDS SUMMARY | 2024-07-11 00:38 | XMS_ITS | Encounter Summary ---
Author Organization [employer] Care Team Providers Care Payroll Tax Specialist Name Role Phone Keyonna Armstrong APRN, CNP [...] on file Legal Sex Female 1:[address]ENGER Gender Identity Not on file Sexual Orientation [...] CDT Office Visit [facility] [address] [address] Woody Horvath MD [address] [place] [phone] documented as of this encounter Visit Diagnoses Not on filedocumented in this encounter Care Teams Payroll Tax Specialist Relationship Specialty Start Date End Date Keyonna Armstrong APRN, CNP [address] [place] [phone] PCP - General Family Medicine 10/19/22 documented as of this encounter
--- OUTSIDE RECORDS SUMMARY | 2024-07-11 00:38 | XMS_ITS | Encounter Summary ---
Author Organization [facility] Address [address] [place] [address] Phone Care Team Providers Care Cell Pourer Name Role Phone Keyonna Armstrong APRN, BETY Primary Care Provider + Reason for Visit * Reason Comments Follow-up Encounter Details Date Type Department Care Team (Latest Contact Info) Description 03/31/2024 9:45 AM CDT Office Visit [facility] [address] [address] Woody Horvath MD [address] [address] Lymphocytosis (Primary Dx) Social History Tobacco Use Types Packs/Day Years Used Date Smoking Tobacco: Never Smokeless Tobacco: Never Tobacco Cessation:Counseling Given: Not Answered Alcohol Use Standard Drinks/Week Comments Not Currently 0 (1 standard drink = 0.6 oz pur e alcohol) Comments Unknown Sex and Gender Information Value Date Recorded Sex Assigned at Not on file 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 Gender Identity Not on file Sexual [...] at all 03/31/2024 9:53 AM CDT Teresa Berwster CMA Feeling down, depressed, or hopeless Not [...] : 1970 Encounter Dept: [facility] MED [facility] Encounter Date: 03/31/2024 Care Team: [...] Intimate Partner Violence: Unknown (01/06/2020) [facility] Humiliation, Afraid, Rape, and Kick questionnaire [...] (H) 760 - 4,000 cells/uL Final Absolute [place] Count 07/26/2023 646 160 - 1,200 cells/uL [...] CDT Office Visit [facility] [address] [address] Woody Horvath MD [address] [place] [phone] documented as of this encounter Results * LACTATE DEHYDROGENASE (LD) (03/31/2024 10:12 AM CDT) Pathologist [facility] LDH 147 140 - 271 U/L [facility]ATING SYSTEMS INSTALLER [facility] Blood 03/31/2024 10:1 2 AM CDT Narrative CANCER HEATING SYSTEMS INSTALLER [facility] - 03/31/2024 10:57 AM CDT Release to patient->Immediate us Woody Horvath MD CHEMISTRY ORDERABLES Final R esult CANCER HEATING SYSTEMS INSTALLER [facility] [place] [address], * (ABNORMAL) COMPLETE BLOOD COUNT (CBC) WITH DIFF (03/31/2024 10:12 AM CDT) Pathologist [facility] WBC 12.2(H) 4.0 - 10.0 10*3/uL CANCER HEATING SYSTEMS INSTALLER [facility] HGB 13.9 11.2 - 15.7 g/dL CANCER HEATING SYSTEMS INSTALLER [facility] HCT 43.2 34.1 - 44.9 % CANCER HEATING SYSTEMS INSTALLER [facility] PLT 411(H) 163 - 369 10*3/uL CANCER HEATING SYSTEMS INSTALLER [facility] MPV 8.5(L) 9.4 - 12.4 fL CANCER HEATING SYSTEMS INSTALLER [facility] RBC 4.32 3.93 - 5.22 10*6/uL CANCER HEATING SYSTEMS INSTALLER [facility] MCV 100(H) 79 - 95 fL CANCER HEATING SYSTEMS INSTALLER [facility] MCH 32.2 25.6 - 32.2 pg CANCER HEATING SYSTEMS INSTALLER [facility] MCHC 32.2 32.2 - 36.5 g/dL CANCER HEATING SYSTEMS INSTALLER [facility] RDW 14.0 11.6 - 14.4 % CANCER HEATING SYSTEMS INSTALLER [facility] Absolute Neutrophil Count 5,958 cells/uL [facility]ISTS [facility] Absolute Seg Count 5,958 1,440 - 6,600 cells/uL CANCER HEATING SYSTEMS INSTALLER [facility] Absolute Lymph Count 4,864(H) 760 - 4,000 cells/uL CANCER HEATING SYSTEMS INSTALLER [facility] Absolute [place] Count 1,094 160 - 1,200 cells/uL CANCER HEATING SYSTEMS INSTALLER [facility] Absolute Eos Count 122 0 - 300 cells/uL CANCER HEATING SYSTEMS INSTALLER [facility] Absolute Baso Count 122(H) 0 - 100 cells/uL CANCER HEATING SYSTEMS INSTALLER [facility] Segmented Neutrophils 49 36 - 66 % CANCER HEATING SYSTEMS INSTALLER [facility] Lymphocytes 40 19 - 40 % [facility] C ENTER [facility] Monocytes 9 4 - 12 % CANCER [facility] Eosinophils 1 0 - 3 % [facility]TER [facility] Basophils 1 0 - 1 % CANCER [facility] [address] [facility]ISTS [facility] WBC Estimate High CANCER HEATING SYSTEMS INSTALLER [facility] Platelet Estimate High CANCER HEATING SYSTEMS INSTALLER [facility] RBC Morphology Abnormal CANCE R HEATING SYSTEMS INSTALLER [facility] Macrocytosis 1+ CANCER HEATING SYSTEMS INSTALLER [facility] Blood 03/31/2024 10:1 2 AM CDT Narrative [facility] 03/31/2024 12:57 PM CDT Release to patient->Immediate us Woody Horvath MD HEMATOLOGY ORDERABLES Final Result CANCER HEATING SYSTEMS INSTALLER [facility] [address] [place] [address], documented in this encounter Visit Diagnoses Diagnosis Lymphocytosis- Primary Lymphocytosis (symptomatic) Lymphocytosis Lymphocytosis (symptomatic) documented in this encounter Care Teams Cell Pourer Relationship Specialty Start Date End Date Keyonna Armstrong, OPERATING ROOM SCHEDULER, PRETZEL TWISTER [address] [place] [phone] PCP - General Family Medicine 10/19/22 documented as of this encounter
--- OUTSIDE RECORDS SUMMARY | 2024-07-11 00:38 | XMS_ITS | Encounter Summary ---
Author Organization [facility] Address [address] [place] [address] Phone Care Team Providers Care Pattern Generator Operator Name Role Phone Keyonna Armstrong APRN, CNP Primary Care Provider + Reason for Visit * Reason Comments New Patient * Consult, Test & Initiate Treatment (Routine) - Closed Specialty Diagnoses / Procedures Referred By Contgoldy t Referred To Contact Oncology Diagnoses Abnormal CBC Keyonna Armstrong APRN, BETY [address] [place] [address] Phone: tel: fax: Woody Horvath MD [address] [place] [phone] Phone: tel: fax: Referral ID Status Reason Start Date Expiration Date Visits Re quested Visits Authorized [id number] Closed 1 1 Encounter Details Date Type Department Care Team (Latest Contact Info) Description 11/13/2022 1:30 PM CDT Office Visit [facility] [address] [address] Woody Horvath MD [address] [place] [address] [id number] Lymphocytosis (Primary Dx) Social History Tobacco Use Types Packs/Day Years Used Date Smoking Tobacco: Never Smokeless Tobacco: Never Alcohol Use Standard Drinks/Week Comments Not Currently 0 (1 standard drink = 0.6 oz pur e alcohol) Comments Unknown Sex and Gender Information Value Date Recorded Sex Assigned at Not on file 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 Gender Identity Not on file Sexual Orientation [...] : 1970 [facility] Encounter Date: 11/13/2022 Care Team: Current [...] CDT Office Visit [facility] [place] [address] [place] [address] Woody Horvath MD [facility] [place] [address] documented as of this encounter Results * LACTATE DEHYDROGENASE (LD) (11/13/2022 2:11 PM CDT) LDH 166 140 - 271 U/L [facility] [place] Blood 11/13/2022 2:11 PM CDT Narrative [facility] - 11/13/2022 3:30 PM CDT Release to patient->Immediate Woody Horvath MD CHEMISTRY ORDERABLES Final R esult [facility] [address] [place] [address], * (ABNORMAL) COMPLETE BLOOD COUNT (CBC) WITH DIFF (11/13/2022 2:11 PM CDT) WBC 12.5(H) 4.0 - 10.0 10*3/uL [facility] HGB 14.2 11.2 - 15.7 g/dL [facility] HCT 44.2 34.1 - 44.9 % [facility] PLT 333 163 - 369 10*3/uL [facility] MPV 9.0(L) 9.4 - 12.4 fL [facility] RBC 4.53 3.93 - 5.22 10*6/uL [facility] MCV 98(H) 79 - 95 fL [facility] MCH 31.3 25.6 - 32.2 pg [facility] MCHC 32.1(L) 32.2 - 36.5 g/dL [facility] RDW 14.4 11.6 - 14.4 % [facility] Absolute Neutrophil Count 5,603 cells/uL [facility] Absolute Seg Count 5,603 1,440 - 6,600 cells/uL [facility] Absolute Lymph Count 5,727(H) 760 - 4,000 cells/uL [facility] Absolute Bulloch Count 747 160 - 1,200 cells/uL [facility] Absolute Eos Count 374(H) 0 - 300 cells/uL [facility] Segmented Neutrophils 45 36 - 66 % [facility] Lymphocytes 46(H) 19 - 40 % [facility] [place] Monocytes 6 4 - 12 % [facility] Eosinophils 3 0 - 3 % [facility] [place] WBC Estimate High [facility] Platelet Estimate Normal [facility] RBC Morphology Abnormal [facility] Macrocytosis 1+ [facility] Blood 11/13/2022 2:11 PM CDT Narrative [facility] - 11/14/2022 8:20 AM CDT Release to patient->Immediate us Woody Horvath MD HEMATOLOGY ORDERABLES Final Result Performing Organization Address City/State/[facility] Co de Phone Number [facility] [address] [place] [address], documented in this encounter Visit Diagnoses Diagnosis Lymphocytosis- Primary Lymphocytosis (symptomatic) Lymphocytosis Lymphocytosis (symptomatic) documented in this encounter Care Teams Pattern Generator Operator Relationship Specialty Start Date End Date Keyonna Armstrong APRN, COMMUNITY SERVICE REPRESENTATIVE [address] [place] [address] PCP - General Family Medicine 10/19/22 documented as of this encounter
--- OUTSIDE RECORDS SUMMARY | 2024-07-11 00:38 | XMS_ITS | Encounter Summary ---
Author Organization [employer] Care Team Providers Care Polysomnographic Technician Name Role Phone Keyonna Armstrong APRN, BETY [...] on file Legal Sex Female 1:39 PM PRE K SPECIAL EDUCATION TEACHER Gender Identity Not on file Sexual [...] Office Visit [facility] [address] [address] Woody Horvath MD [address] [address] documented as of this encounter Visit Diagnoses Not on filedocumented in this encounter Care Teams Polysomnographic Technician Relationship Specialty Start Date End Date Keyonna Armstrong APRN, BETY [address] [place] [address] PCP - General Family Medicine 10/19/22 documented as of this encounter
--- OUTSIDE RECORDS SUMMARY | 2024-07-11 00:38 | XMS_ITS | Encounter Summary ---
Author Organization [facility] Address [address] [place] [address] Care Team Providers Care Fighting Vehicle Systems Maintainer Name Role Phone Unavailable Primary Care Provider Unavailabl e Encounter Details Date Type Department Care Team (Late st Contact Info) Description 06/26/2020 Lab Requisition [facility] Community Testing [facility] [address] [place] [address] [place] [address] [place] [address] Social History Tobacco Use Types Packs/Day Years Used Date Smoking Tobacco: Never Assessed Comments Unknown Sex and Gender Information Value Date Recorded Sex Assigned at Not on file Legal Sex Female 1:39 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 Gender Identity Not on file Sexual Orientation Not on file documented as of this encounter Plan of Treatment Upcoming Encounters Date Type Department Care Team (Late st Contact Info) Description 03/30/2025 9:45 AM CDT Office Visit [facility] [address] [address] Woody Horvath MD [address] [address] documented as of this encounter Procedures Procedure Name Priority Date/Time Associated Diagnosis Comments SARS-COV-2 PCR [facility] ONLY Routine 06/26/2020 3:04 PM BLEACH ANALYST documented in this encounter Visit Diagnoses Not on filedocumented in this encounter
--- OUTSIDE RECORDS SUMMARY | 2024-07-11 00:38 | XMS_ITS | Encounter Summary ---
Author Organization [facility] Address [address] [place] [address] Phone Care Team Providers Care Statistician Name Role Phone Keyonna Armstrong APRN, BETY Primary Care Provider + Encounter Details Date Type Department Care Team (Late Contact Info) Description 07/26/2023 1:55 PM SENIOR LIVING ADVISOR Lab [facility] [address] [address] Lab, Cc [facility] [place] Lymphocytosis Social History Tobacco Use Types Packs/Day Years Used Date Smoking Tobacco: Never Smokeless Tobacco: Never Alcohol Use Standard Drinks/Week Comments Not Currently 0 (1 standard drink = 0.6 oz pur e alcohol) Comments Unknown Sex and Gender Information Value Date Recorded Sex Assigned at Not on file Legal Sex Female 1:39 PM SENIOR LIVING ADVISOR Gender Identity Not on file Sexual Orientation [...] AM CDT Office Visit [facility] [address] [place] [address] Woody Horvath MD [address] [place] [address] documented as of this encounter Procedures Procedure Name Priority Date/Time Associated Diagnosis Comments LACTATE DEHYDROGENASE (LD) Routine 07/26/2023 1:47 PM SENIOR LIVING ADVISOR Lymphocytosis COMPLETE BLOOD COUNT (CBC) WITH DIFF Routine 07/26/2023 1:47 PM SENIOR LIVING ADVISOR Lymphocytosis documented in this encounter Results * (ABNORMAL) COMPLETE BLOOD COUNT (CBC) WITH DIFF (07/26/2023 1:47 PM SENIOR LIVING ADVISOR) WBC 10.8(H) 4.0 - 10.0 10*3/uL [facility] HGB 14.5 11.2 - 15.7 g/dL [facility] HCT 45.2(H) 34.1 - 44.9 % [facility] PLT 358 163 - 369 10*3/uL [facility] MPV 8.9(L) 9.4 - 12.4 fL [facility] RBC 4.44 3.93 - 5.22 10*6/uL [facility] MCV 102(H) 79 - 95 fL [facility] MCH 32.7(H) 25.6 - 32.2 pg [facility] MCHC 32.1(L) 32.2 - 36.5 g/dL [facility] RDW 15.6(H) 11.6 - 14.4 % [facility] Absolute Neutrophil Count 5,600 cells/uL [facility] Absolute Seg Count 5,600 1,440 - 6,600 cells/uL [facility] Absolute Lymph Count 4,523(H) 760 - 4,000 cells/uL [facility] Absolute Heard Count 646 160 - 1,200 cells/uL [facility] Segmented Neutrophils 52 36 - 66 % [facility] Lymphocytes 42(H) 19 - 40 % [facility] C [facility]TER [facility] Monocytes 6 4 - 12 % [facility] WBC Estimate High [facility] Platelet Estimate Normal [facility] RBC Morphology Abnormal CANCE R SPECIAL EDUCATION ASSOCIATE [facility] Macrocytosis 1+ [facility] Anisocytosis 1+ [facility] Blood 07/26/2023 1:47 PM SENIOR LIVING ADVISOR Narrative [facility] - 07/26/2023 4:05 PM SENIOR LIVING ADVISOR Release to patient->Immediate Cindy Childress APRN, CNP HEMATOLOGY ORDERABLES Final Result [facility] [address] [place] [address], [place] [phone] * LACTATE DEHYDROGENASE (LD) (07/26/2023 1:47 PM SENIOR LIVING ADVISOR) LDH 164 140 - 271 U/L [facility] Blood 07/26/2023 1:47 PM SENIOR LIVING ADVISOR Narrative [facility] 07/26/2023 2:36 PM SENIOR LIVING ADVISOR Release to patient->Immediate Cindy Childress APRN, CNP CHEMISTRY ORDERABLES Final Result Performing Organization Address City/[facility]/ZIP Co de Phone Number [facility] [address] [place] [address], [place] [phone] documented in this encounter Visit Diagnoses Diagnosis Lymphocytosis Lymphocytosis (symptomatic) documented in this encounter Care Teams Statistician Relationship Specialty Start Date End Date Keyonna Armstrong APRN, BETY [address] [place] [address] PCP - General Family Medicine 10/19/22 documented as of this encounter
--- OUTSIDE RECORDS SUMMARY | 2024-07-11 00:38 | XMS_ITS | Clinical Summary ---
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
--- OUTSIDE RECORDS SUMMARY | 2024-07-11 00:38 | XMS_ITS | Encounter Summary ---
Author Organization [facility] Address [address] [place] [address] Phone Care Team Providers Care Brim Stretcher Name Role Phone Keyonna Armstrong APRN, CNP Primary Care Provider + Reason for Visit * Reason Comments Follow-up Encounter Details Date Type Department Care Team (Latest Contact Info) Description 07/26/2023 2:00 PM JOB PRESS OPERATOR Office Visit [facility] [address] [address] Woody Horvath MD [address] [address] Lymphocytosis (Primary Dx) Social History Tobacco Use Types Packs/Day Years Used Date Smoking Tobacco: Never Smokeless Tobacco: Never Tobacco Cessation:Counseling Given: Not Answered Alcohol Use Standard Drinks/Week Comments Not Currently 0 (1 standard drink = 0.6 oz pur e alcohol) Comments Unknown Sex and Gender Information Value Date Recorded Sex Assigned at Not on file Legal Sex Female 1:39 PM JOB PRESS OPERATOR Gender Identity Not on file Sexual Orientation Not on file documented as of this encounter Last Filed Vital Signs Vital Sign Reading Time Taken Comments Blood Pressure 138/88 07/26/2023 1:53 PM JOB PRESS OPERATOR Pulse 97 07/26/2023 1:53 PM JOB PRESS OPERATOR Temperature 36.9 ??C (98.5 ??F) 07/26/2023 1:53 PM CS T Respiratory Rate 18 07/26/2023 1:53 PM JOB PRESS OPERATOR Oxygen Saturation 99% 07/26/2023 1:53 PM JOB PRESS OPERATOR Inhaled Oxygen Concentration - - Weight 127.2 kg (280 lb 8 oz) 07/26/2023 1:53 PM JOB PRESS OPERATOR Height 165.1 cm (5' 5) 07/26/2023 1:53 PM JOB PRESS OPERATOR Body Mass Index 46.68 07/26/2023 1:53 PM JOB PRESS OPERATOR documented in this encounter Functional Status * Question Answer Date of Assessment Author Little interest or pleasure in doing things Not at all 07/26/2023 1:53 PM JOB PRESS OPERATOR Ozzie Salamanca CMA Feeling down, depressed, or hopeless Not at all 07/26/2023 1:53 PM JOB PRESS OPERATOR Sasha Salamanca CMA * Over the past 2 weeks, how often have you been bothered by any of the following problems? Question Answer Date of Assessment Author Patient Health Questionnaire-2 Score 0 07/26/2023 1:53 PM JOB PRESS OPERATOR Erin Salamanca CMA documented as of this encounter Progress Notes * Woody Horvath MD - 07/26/2023 2:00 PM CST Images from the original note were not included. Patient: Veronica Evangelista Age: 52 y.o. : 1970 [facility] Encounter Date: 07/26/2023 Care Team: Current Providers [...] lab results shown below reviewed. Woody Horvath MD/[facility] Vitals: Vitals: 07/26/23 [...] 760 - 4,000 cells/uL Final ??? Absolute [place] Count 11/13/2022 747 160 - 1,200 cells/uL [...] subunit ??? CD4 11/13/2022 17.25 % Final [place] T-cells, thymocyte subset, monocytes ??? CD5 11/13/2022 [...] B-Cell associated antigen in B-Cell subset ??? [place] 11/13/2022 22.1 % Final [place] Ig light chain, B-cells, plasma cells ??? [...] was performed at [facility], [address] [address]. These tests were developed and their performance characteristics were determined by [facility]. They may not be cleared or approved by the U.S. Food and Drug Administration. The FDA has determined that such clearance or approval is not necessary. These results may be used for clinical, investigational or for research purposes, and should be interpreted with other relevant clinicopathologic data. ELECTRONIC SIGNATURE: Lele Perez D.O. Hematopathologist, ex. [id number] This report was electronically signed. PRESS OPERATOR PRESS OPERATOR documented in this encounter Plan of Treatment Upcoming Encounters Date Type Department Care Team (Late st Contact Info) Description 03/30/2025 9:45 AM CDT Office Visit [facility] [address] [place] [phone] Woody Horvath MD [address] [place], [place] [address] documented as of this encounter Visit Diagnoses Diagnosis Lymphocytosis- Primary Lymphocytosis (symptomatic) documented in this encounter Care Teams Brim Stretcher Relationship Specialty Start Date End Date Keyonna Armstrong, LOG CHIPPER OPERATOR, RIB BENDER [address] [place] [address] PCP - General Family Medicine 10/19/22 documented as of this encounter
--- OUTSIDE RECORDS SUMMARY | 2024-07-11 00:38 | XMS_ITS | Encounter Summary ---
Author Organization [facility] Address [address] [place] [address] Care Team Providers Care Consignee Name Role Phone Unavailable Primary Care Provider Unavailabl e Encounter Details Date Type Department Care Team (Late st Contact Info) Description 06/12/[address] [facility] Community Testing [facility] [address] [place] [address] [place] [address] [place] [address] Social History Tobacco Use Types Packs/Day Years Used Date Smoking Tobacco: Never Assessed Comments Unknown Sex and Gender Information Value Date Recorded Sex Assigned at Not on file Legal Sex Female 1:39 PM REPAIR MECHANIC Gender Identity Not on file Sexual Orientation Not on file documented as of this encounter Plan of Treatment Upcoming Encounters Date Type Department Care Team (Late st Contact Info) Description 03/30/2025 9:45 AM CDT Office Visit [facility] [address] [address] Woody Horvath MD [address] [address] documented as of this encounter Procedures Procedure Name Priority Date/Time Associated Diagnosis Comments SARS-COV-2 PCR [facility] ONLY Routine 06/12/2020 2:47 PM REPAIR MECHANIC documented in this encounter Visit Diagnoses Not on filedocumented in this encounter
--- OUTSIDE RECORDS SUMMARY | 2024-07-11 00:40 | XMS_ITS | Encounter Summary ---
Author Organization [facility] Address [address] [place] [address] Care Team Providers Care Woodworking Machine Offbearer Name Role Phone Keyonna Armstrong Primary Care Provider + Gasper Ochoa MD Unavailable Reason for Visit * Reason Comments 3 month follow up Weight management Encounter Details Date Type Department Care Team (Late st Contact Info) Description 08/28/2023 11:45 AM ASSEMBLER EQUIPMENT Office Visit [facility] Family Medicine at [address] [address] Mark Wheat MD [address] [place] [address] Controlled type 2 diabetes mellitus without complication, without long-term current use of insulin ([facility]) ([facility]) (Primary Dx); Abnormal weight gain; Class 3 severe obesity due to excess calories without serious comorbidity with body mass index (BMI) of 45.0 to 49.9 in adult ([facility]) Social History Tobacco Use Types [...] on file Legal Sex Female 6:41 PM ASSEMBLER EQUIPMENT Gender Identity Not on file Sexual Orientation Not on file 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48 08/28/2023 12:00 PM ASSEMBLER EQUIPMENT documented in this encounter Ordered Prescriptions Prescription Sig Dispense Quantity Refills Last Filled Start Date End Date tirzepatide (Mounjaro) 7.5 mg/0.5 mL pen injectorIndication s:Controlled type 2 diabetes mellitus without complication, without long-term current use of insulin ([facility]) ([facility]),Abnormal weight gain,Class 3 severe obesity due to excess calories without serious comorbidity with body mass index (BMI) of 45.0 to 49.9 in adult ([facility]) Inject 7.5 mg under the [...] and Daily Steps count about 5000 to [id number] Past Medical History: Diagnosis Date Anxiety Arthropathy [...] NEEDED FOR WHEEZING 1 vit A,C and [id number] (OCUVITE with LUTEIN) 1,000 unit-200 mg-60 unit-2 [...] complication, without long-term current use of insulin ([facility]) ([facility]) (Primary) Comments: chronic. Uncontrolled. Increase [...] 45.0 to 49.9 in adult ([facility]) - tirzepatide (Mounjaro) 7.5 mg/0.5 [...] Follow up 1-3 months. Mark Wheat MD MBLER EQUIPMENT documented in this encounter Plan of Treatment Not on file documented as of this encounter Visit Diagnoses Diagnosis Controlled type 2 diabetes mellitus without complication, without long-term current use of insulin ([facility]) ([facility])- Primary Abnormal weight gain Class 3 severe obesity due to excess calories without serious comorbidity with body mass index (BMI) of 45.0 to 49.9 in adult ([facility]) documented in this encounter Discontinued [...] mouth added in this encounter Care Teams Woodworking Machine Offbearer Relationship Specialty Start Date End Date Keyonna Armstrong PA PCP - General Nurse Practitioner 06/20/18 Gasper Ochoa MD [address] [facility] [address] [place] [address] Consulting Physician Pain Management 08/31/21 documented as of this encounter
--- OUTSIDE RECORDS SUMMARY | 2024-07-11 00:40 | XMS_ITS | Encounter Summary ---
Author Organization [facility] Healthcare Address [address] [place] [address] Care Team Providers Care Dental Hygiene Administrative Assistant Name Role Phone Keyonna Armstrong Primary Care Provider + Gasper Ochoa MD Unavailable Encounter Details Date Type Department Care Team (Late st Contact Info) Description 05/29/2023 11:45 AM SWITCHGEAR REPAIRER Office Visit [facility] Medical Group Family Medicine at [address] [address] Bolivar Ricks MD [address] [place] [phone] Abnormal weight gain (Primary Dx); Class 3 severe obesity due to excess calories with serious comorbidity and body mass index (BMI) of 45.0 to 49.9 in adult ([facility]); Metabolic syndrome; Controlled type 2 diabetes mellitus without complication, without long-term current use of insulin ([facility]) ([facility]) Social History Tobacco Use Types [...] on file Legal Sex Female 6:41 PM SWITCHGEAR REPAIRER Gender Identity Not on file Sexual Orientation Not on file 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 Not on file Not on leeann e documented as of this encounter Last Filed Vital Signs Vital Sign Reading Time Taken Comments Blood Pressure 114/90 05/29/2023 11:49 AM SWITCHGEAR REPAIRER Pulse 134 05/29/2023 11:49 AM SWITCHGEAR REPAIRER Temperature 37.3 ??C (99.2 ??F) 05/29/2023 1 1:49 AM SWITCHGEAR REPAIRER Respiratory Rate - - Oxygen Saturation 97% 05/29/2023 11: 49 AM SWITCHGEAR REPAIRER Inhaled Oxygen Concentration - - Weight 128.4 kg (283 lb 1.6 oz) 023 11:49 AM SWITCHGEAR REPAIRER Height 165.1 cm (5' 5) 05/29/2023 11:4 9 AM SWITCHGEAR REPAIRER Body Mass Index 47.11 05/29/2023 11:49 AM SWITCHGEAR REPAIRER documented in this encounter Ordered Prescriptions Prescription Sig Dispense Quantity Refills Last Filled Start Date End Date semaglutide (OZEMPIC) 2 mg/dose (8 mg/3 mL) pen injector injectionIndicatio ns:Class 3 severe obesity due to excess calories with serious comorbidity and body mass index (BMI) of 45.0 to 49.9 in adult ([facility]),Abnormal weight gain,Metabolic syndrome,Controlle d type 2 diabetes mellitus without complication, without long-term current use of insulin ([facility]) ([facility]) Inject 2 mg under the skin every 7 days 9 mL 1 05/29/2023 05/30/2023 semaglutide (OZEMPIC) 2 mg/dose (8 mg/3 mL) pen injector injectionIndicatio ns:Class 3 severe obesity due to excess calories with serious comorbidity and body mass index (BMI) of 45.0 to 49.9 in adult ([facility]),Abnormal weight gain,Metabolic syndrome,Controlle d type 2 diabetes mellitus without complication, without long-term current use of insulin ([facility]) ([facility]) Inject 2 mg under the [...] and Daily Steps count about 5000 to [id number] Past Medical History: Diagnosis Date Anxiety Arthropathy [...] NEEDED FOR WHEEZING 1 vit A,C and W-muvjvt-othxenqq (OCUVITE with LUTEIN) 1,000 unit-200 mg-60 unit-2 [...] index (BMI) of45.0 to 49.9 in adult ([facility]) - semaglutide (OZEMPIC) 2 mg/dose (8 mg/3 mL) pen injector injection; Inject 2 mg under the skin every 7 days Metabolic syndrome - semaglutide (OZEMPIC) 2 mg/dose (8 mg/3 mL) pen injector injection; Inject 2 mg under the skin every 7 days Controlled type 2 diabetes mellitus without complication, without long-term current use of insulin ([facility]) ([facility]) Comments: Chronic. Uncontrolled. Increase Ozempic 2mg weekly. Orders: - semaglutide (OZEMPIC) 2 mg/dose (8 mg/3 mL) pen injector injection; Inject 2 mg under the skin every 7 days Body mass index is 47.11 kg/m??. BMI Plan: Nutrition/Activities/Behavioral Counseling. Education Provided. Follow up 1-3 months. Bolivar Ricks MD CHGEAR REPAIRER documented in this encounter Miscellaneous Notes * Addendum Note - Bolivar Ricks MD - 05/29/2023 11:45 AM CSTAddended by: BOLIVAR RICKS on: 05/29/2023 12:16 PM Modules accepted: Orders CHGEAR REPAIRER documented in this encounter Plan of [...] without long-term current use of insulin (CMS/HCC) ([facility]) documented in this encounter Discontinued [...] (BMI) of 45.0 to 49.9 in adult ([facility]),Abnormal weight gain,Metabolic syndrome,Controlled type 2 diabetes mellitus without complication, without long-term current use of insulin ([facility]) ([facility]) Inject 2 mg under the skin every 7 days Reorder 05/29/2023 05/29/2023 documented as of this encounter Care Teams Dental Hygiene Administrative Assistant Relationship Specialty Start Date End Date Keyonna Armstrong PA PCP - General Nurse Practitioner 06/20/18 Gasper Ochoa MD [address] [facility] [place] [address] Consulting Physician Pain Management 08/31/21 documented as of this encounter
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
--- OUTSIDE RECORDS SUMMARY | 2024-07-11 00:40 | XMS_ITS | Encounter Summary ---
Author Organization [facility] Healthcare Address [address] [place] [address] Care Team Providers Care Shaper Operator Name Role Phone Keyonna Armstrong Primary Care Provider + Gasper Ochoa MD Unavailable Reason for Referral * Procedure (Routine) - Pending Review Specialty Diagnoses / Procedures Referred By Contac t Referred To Contact Diagnoses Myalgia, other site Procedures Trigger Point Injection Valentina Curtis NP [address] [facility] [address] [place] [address] Phone: tel: fax: [facility] Medical Group Referral ID Status Reason Start Date Expiration Date V isits Requested Visits Authorized [id number] Pending Review 11/26/2023 12/25/2024 1 1 * Procedure (Routine) - Pending Review Specialty Diagnoses / Procedures Referred By Contac t Referred To Contact Diagnoses Myalgia, other site Procedures Trigger Point Injection Valentina Curtis NP [facility] [facility] [address] [place] [address] Phone: tel: fax: [facility] Medical [facility] Referral ID Status Reason Start Date Expiration Date V isits Requested Visits Authorized [id number] Pending Review 11/26/2023 12/25/2024 1 1 Reason for Visit * Reason Comments Pain Encounter Details Date Type Department Care Team (Late st Contact Info) Description 11/26/2023 11:00 AM CDT Office Visit [facility] Medical Group Orthopedics and Sports Medicine [address] [place] [address] [address] [place] [phone] Valentina Curtis NP [address] [place] [address] Myalgia, other site (Primary Dx); Chronic bilateral [...] on file Legal Sex Female 6:41 PM BELT LINE FEEDER Gender Identity Not on file Sexual Orientation Not on file 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 She has home cervical spine range of motion exercises. April 2021-- she went to Dr. 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 Assessment: Diagnosis Plan 1. Myalgia, other [...] There is preservation of vertebral body height. Lcit-fb-ufvabuvm multilevel degenerativeendplate change. Hkjb-ok-wrvmqnnr facet arthropathy mid through lower lumbar spine. [...] can be obtained as clinically indicated. Multilevel bxhy-ei-cimewwoe endplate degenerative changes with marginal spur formation. [...] indents the ventral cord. Thickened ligamentum flavum. Smhk-po-rxazczmv spinal canal stenosis. Uncovertebral spurring and facet arthropathy with mild right and ooqx-mc-ftrrhlsq left neural foraminal narrowing. C7-T1: Anterolisthesis of C7 on T1 with unroofing of the disc. No significant spinal canal or neural foraminal narrowing. UPPER THORACIC: Incompletely imaged. No high-grade spinal canal stenosis. IMPRESSION: Multilevel sddn-yz-vexxbewo cervical spondylotic changes as described. Spinal canal [...] to the fifth finger, and exhibit full machine clothing man strength Perfusion: 2+ radial and ulnar pulses. [...] Disp: , Rfl: 1 vit A,C and L-caksui-auermsab (OCUVITE with LUTEIN) 1,000 unit-200 mg-60 unit-2 [...] Procedure Name Priority Date/Time Associated Diagnosis Comments DE INJECTION SINGLE/FLIGHT CREW TIME CLERK TRIGGER POINT 1/2 MUSCLES Routine 11/26/2023 11:00 AM CDT Myalgia, other site DE INJECTION SINGLE/FLIGHT CREW TIME CLERK TRIGGER POINT 1/2 MUSCLES Routine 11/26/2023 11:00 AM CDT Myalgia, other site documented in this encounter Results * DE INJECTION SINGLE/FLIGHT CREW TIME CLERK TRIGGER POINT 1/2 MUSCLES (11/26/2023 11:00 AM [...] IN CLINIC/BEDSIDE ORDERABLE S Final Result * DE INJECTION SINGLE/FLIGHT CREW TIME CLERK TRIGGER POINT 1/2 MUSCLES (11/26/2023 11:00 AM [...] with no immediate complications us Valentina Curtis DRAFTING LAYOUT MAN IN CLINIC/BEDSIDE ORDERABLE S Final Result documented [...] mg documented in this encounter Care Teams Shaper Operator Relationship Specialty Start Date End Date Keyonna Armstrong PA PCP - General Nurse Practitioner 06/20/18 Gasper Ochoa MD [address] [facility] [address] [facility] [place] [address] Consulting Physician Pain Management 08/31/21 documented as of this encounter
--- OUTSIDE RECORDS SUMMARY | 2024-07-11 00:40 | XMS_ITS | Encounter Summary ---
Author Organization [facility] Healthcare Address [address] [place] [address] Care Team Providers Care Antique Finisher Name Role Phone Keyonna Armstrong Primary Care Provider + Gasper Ochoa MD Unavailable Reason for Visit * Reason Onset Date Comments Prior Auth 11/26/2023 JUDAH Mohan Encounter Details Date Type Department Care Team (Late st Contact Info) Description 11/26/2023 Telephone [facility] Medical Group Family Medicine at [address] [place] [address] Keyonna Armstrong PA [address] [place] [phone] Prior Auth (JUDAH Mohan) Social History [...] file Legal Sex Female 6:41 PM STOCK LETTERER Gender Identity Not on file Sexual Orientation Not on file 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 * Telephone Encounter - Nova Ashley MA - 11/26/2023 1:54 PM CDT PA on Mounjaro for covermymeds [id number] documented in this encounter Plan of Treatment Not on file documented as of this encounter Visit Diagnoses Not on filedocumented in this encounter Care Teams Antique Finisher Relationship Specialty Start Date End Date Keyonna Armstrong PA PCP - General Nurse Practitioner 06/20/18 Gasper Ochoa MD [address] [facility] [address] [facility] [place] [address] Consulting Physician Pain Management 08/31/21 documented as of this encounter
--- OUTSIDE RECORDS SUMMARY | 2024-07-11 00:40 | XMS_ITS | Encounter Summary ---
Author Organization [facility] Healthcare Address [address] [place] [address] Care Team Providers Care Remelt Furnace Expediter Name Role Phone Keyonna Armstrong Primary Care Provider + Gasper Ochoa MD Unavailable Reason for Visit * Reason Onset Date Comments Med Refill 07/20/2023 Encounter Details Date Type Department Care Team (Late st Contact Info) Description 07/20/2023 Telephone [facility] Medical Group Family Medicine at [address] [place] [address] Mark Wheat MD [address] [place] [address] Med Refill Social History Tobacco Use Types [...] on file Legal Sex Female 6:41 PM PROFESSIONAL ATHLETES COACH Gender Identity Not on file Sexual Orientation [...] Liset Durand RN - 07/20/2023 1:57 PM PROFESSIONAL ATHLETES COACH Script sent to pharmacy [facility] * Telephone Encounter - Liset Durand RN - 07/20/2023 1:57 PM PROFESSIONAL ATHLETES COACH Increased mounjaro sent to pharmacy [facility] * Telephone Encounter - Kelsey Parekh - [...] needed, Pharmacy(s) medication(s) should be sent to: [facility]/pharmacy #[id number] Additional Comments: none Does message need to be routed? Yes-Action Needed ESSIONAL ATHLETES COACH documented in this encounter Plan of Treatment Not on file documented as of this encounter Visit Diagnoses Diagnosis Controlled type 2 diabetes mellitus without complication, without long-term current use of insulin ([facility]/HCC) (HCC) documented in this encounter Discontinued Medications Medication Sig Discontinue Reason Start Date End Da te tirzepatide (Mounjaro) 2.5 mg/0.5 mL pen injectorIndications:type 2 diabetes mellitus INJECT 0.5 ML (2.5 MG TOTAL) UNDER THE SKIN ONCE A WEEK FOR 28 DAYS 07/10/2023 07/20/2023 documented as of this encounter Care Teams Remelt Furnace Expediter Relationship Specialty Start Date End Date Keyonna Armstrong PA PCP - General Nurse Practitioner 06/20/18 Gasper Ochoa MD [address] [facility] [address] [place] [address] Consulting Physician Pain Management 08/31/21 documented as of this encounter
--- OUTSIDE RECORDS SUMMARY | 2024-07-11 00:40 | XMS_ITS | Encounter Summary ---
Author Organization [facility] Healthcare Address [address] [place] [address] Care Team Providers Care Photographer Apprentice Lithographic Name Role Phone Keyonna Armstrong Primary Care Provider + Gasper Ochoa MD Unavailable Reason for Visit * Reason Onset Date Comments Medication Request 10/25/2023 Encounter Details Date Type Department Care Team (Late st Contact Info) Description 10/25/2023 Telephone [facility] Medical Group Family Medicine at [address] [phone] Mark Wheat MD [address] [place] [phone] Medication Request Social History Tobacco Use Types [...] on file Legal Sex Female 6:41 PM PROBATION MANAGER Gender Identity Not on file Sexual Orientation Not on file 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 Not on file [...] needed, Pharmacy(s) medication(s) should be sent to: [facility]/pharmacy #[id number] Additional Comments: none Does message need to [...] complication, without long-term current use of insulin ([facility]) (HCC),Abnormal weight gain,Class 3 severe obesity due to excess calories without serious comorbidity with body mass index (BMI) of 45.0 to 49.9 in adult ([facility]) Inject 7.5 mg under the skin every 7 days 08/28/2023 10/25/2023 documented as of this encounter Care Teams Photographer Apprentice Lithographic Relationship Specialty Start Date End Date Keyonna Armstrong PA PCP - General Nurse Practitioner 06/20/18 Gasper Ochoa MD [address] [facility] [address] Consulting Physician Pain Management 08/31/21 documented as of this encounter
--- OUTSIDE RECORDS SUMMARY | 2024-07-11 00:40 | XMS_ITS | Encounter Summary ---
Author Organization [facility] Healthcare Address [address] [place] [address] Care Team Providers Care Harvest Worker Name Role Phone Keyonna Armstrong Primary Care Provider + Gasper Ochoa MD Unavailable Reason for Visit * Reason Comments Weight Management Encounter Details Date Type Department Care Team (Late st Contact Info) Description 11/27/2023 1:00 PM CDT Office Visit [facility] Medical Group Family Medicine at [address] [place] [address] Mark Wheat MD [address] [place] [id number] Controlled type 2 diabetes mellitus without complication, without long-term current use of insulin ([facility] ([facility]) (Primary Dx); Class 3 severe obesity due to excess calories without serious comorbidity with body mass index (BMI) of 40.0 to 44.9 in adult ([facility]) Social History Tobacco Use Types Packs/Day Years [...] on file Legal Sex 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 Gender Identity Not on file Sexual Orientation Not on file 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 Not on [...] complication, without long-term current use of insulin ([facility]) ([facility]) Inject 12.5 mg under the skin every [...] and Daily Steps count about 5000 to [id number] Past Medical History: Diagnosis Date Anxiety Arthropathy [...] FOR WHEEZING 1 [DISCONTINUED] vit A,C and T-qbvutn-aanbonty (OCUVITE with LUTEIN) 1,000 unit- 200 mg-60 [...] complication, without long-term current use of insulin ([facility]) ([facility]) (Primary) Comments: Chronic. Uncontrolled. Increase Mounjaro 12.5mg Weekly. Orders: - tirzepatide (Mounjaro) 12.5 mg/0.5 mL pen injector; Inject 12.5 mg under the skin every 7 days Class 3 severe obesity due to excess calories without serious comorbidity with body mass index (BMI) of 40.0 to 44.9 in adult ([facility]) Recommended aggressive Lifestyle modification and weight loss [...] complication, without long-term current use of insulin ([facility]) ([facility])- Primary Class 3 severe obesity due to [...] Therapy completed 06/10/2018 11/27/2023 vit A,C and L-rhovkz-bgvtiefz (OCUVITE with LUTEIN) 1,000 unit-200 mg-60 unit-2 [...] 07/01/2024 added in this encounter Care Teams Harvest Worker Relationship Specialty Start Date End Date Keyonna Armstrong PA PCP - General Nurse Practitioner 06/20/18 Gasper Ochoa MD [address] [place] [address] Consulting Physician Pain Management 08/31/21 documented as of this encounter
--- OUTSIDE RECORDS SUMMARY | 2024-07-11 00:40 | XMS_ITS | Encounter Summary ---
Author Organization [facility] Healthcare Address [address] [place] [address] Care Team Providers Care Director Franchise Sales Name Role Phone Keyonna Armstrong Primary Care Provider + Gasper Ochoa MD Unavailable Reason for Visit * Reason Onset Date Comments Medication Request 05/30/2023 Encounter Details Date Type Department Care Team (Late st Contact Info) Description 05/30/2023 Telephone [facility] Medical Group Family Medicine at [address] [address] aMrk Wheat MD [address] [place] [id number] Medication Request Social History Tobacco Use Types [...] on file Legal Sex Female 6:41 PM SHIP DESIGN TEACHER Gender Identity Not on file Sexual Orientation Not on file 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 No DESIGN TEACHER * Telephone Encounter - Nirmala Lancaster MA - 05/30/2023 2:32 PM CST Mounjaro should be covered for diabetic dx Will send starting dose to pharm DESIGN TEACHER * Telephone Encounter - Mark Wheat MD - 05/30/2023 1:13 PM CST No other options. She may have to go back on ozempic 1mg. She can check with her insurance rather wegovy or Mounjaro covered. DESIGN TEACHER * Telephone Encounter - Jessica Edouard RN - 05/30/2023 11:00 AM SHIP DESIGN TEACHER Insurance won't cover 1 mg 2 shots every 7 days, please advise on what to do since Ozempic 2 mg is on back order DESIGN TEACHER * Telephone Encounter - Jeni Ellis - 05/30/2023 10:45 AM CST Call Back Caller???s Concern: Pt is calling following up on a message that was sent in earlier. CS informed patient that provider has not responded and she will be sure to receive a call when provider responds. Please follow up with patient. Does message need to be routed? Yes-Action Needed DESIGN TEACHER * Telephone Encounter - Marcella López - [...] should be sent to: [facility] [place] Additional Comments: Please advise. Patient has been out for two days and was told she shouldn't skip any days, so sending high priority. Does message need to be routed? Yes-Action Needed DESIGN TEACHER documented in this encounter Plan of Treatment Not on file documented as of this encounter Visit Diagnoses Diagnosis Controlled type 2 diabetes mellitus without complication, without long-term current use of insulin ([facility]) ([facility])- Primary documented in this encounter [...] complication, without long-term current use of insulin ([facility]) ([facility]) Inject 2 mg under the skin every 7 days Availability 05/29/2023 05/30/2023 documented as of this encounter Care Teams Director Franchise Sales Relationship Specialty Start Date End Date Keyonna Armstrong PA PCP - General Nurse Practitioner 06/20/18 Gasper Ochoa MD [address] [facility] [place] [address] Consulting Physician Pain Management 08/31/21 documented as of this encounter
--- OUTSIDE RECORDS SUMMARY | 2024-07-11 00:40 | XMS_ITS | Referral Summary ---
Author Organization [facility] [address] [place] [id number] Care Team Providers Care Meteorology Professor Name Role Phone Keyonna Armstrong Primary Care Provider + Gasper Ochoa MD Unavailable Encounters Date Type Department Care Team Description 07/01/2024 11:00 AM BOX LINER Office Visit [facility] Group Family Medicine at [address] [place] [address] Mark Wheat MD Controlled type 2 diabetes mellitus without complication, without long-term current use of insulin (CMS/HCC) (HCC) (Primary Dx); Class 2 obesity due to excess calories without serious comorbidity with body mass index (BMI) of 39.0 to 39.9 in adult 05/21/2024 8:00 AM CDT Office Visit [facility] Medical Group Orthopedics and Sports Medicine [address] [place] [address] [address] [place] [address] Valentina Curtis NP Myalgia, other [...] complication, without long-term current use of insulin ([facility]) ([facility]) Inject 12.5 mg under the skin every 7 days 6 mL 3 4 07/01/20 25 Active estradioL (VIVELLE-DOT) 0.05 mg/[address] 1 patch on the skin 2 (two) times a week 4 07/01/20 24 Discontinu ed(Duplica te order) tirzepatide (Mounjaro) 12.5 mg/0.5 mL pen injectorIndicat ions:Controlled type 2 diabetes mellitus without complication, without long-term current use of insulin ([facility]) ([facility]) INJECT 12.5 MG UNDER THE SKIN EVERY [...] complication, without long-term current use of insulin ([facility]) 08/28/2023 Overview (08/28/2023): chronic. Uncontrolled. 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 Not on leeann e Last Filed Vital Signs Vital Sign Reading Time Taken Comments Blood Pressure 102/72 07/01/2024 11:25 AM BOX LINER Pulse 112 07/01/2024 11:25 AM BOX LINER Temperature 36 ??C (96.8 ??F) 07/01/2024 11: 25 AM BOX LINER Respiratory Rate 18 03/21/2024 10:5 3 AM CDT Oxygen Saturation 96% 07/01/2024 11: 25 AM BOX LINER Inhaled Oxygen Concentration - - Weight 107.8 kg (237 lb 9.6 oz) 024 11:25 AM BOX LINER Height 165.1 cm (5' 5) 07/01/2024 11:2 5 AM BOX LINER Body Mass Index 39.54 07/01/2024 11:25 AM BOX LINER Plan of Treatment Not on file Procedures Procedure Name Priority Date/Time Associated Diagnosis Comments ID INJECTION SINGLE/RECORDS SECTION SUPERVISOR TRIGGER POINT 1/2 MUSCLES Routine 05/21/2024 8:00 AM CDT Myalgia, other site ID INJECTION SINGLE/RECORDS SECTION SUPERVISOR TRIGGER POINT 1/2 MUSCLES Routine 05/21/2024 8:00 AM CDT Myalgia, other site COMPREHENSIVE METABOLIC PANEL Routine 07/11/2018 8:19 AM BOX LINER Intestinal malabsorption, unspecified type Bariatric surgery status HEMOGLOBIN A1C Routine 07/11/2018 8:19 AM BOX LINER Intestinal malabsorption, unspecified type Bariatric surgery status LIPID PANEL Routine 07/11/2018 8:19 AM BOX LINER Intestinal malabsorption, unspecified type Bariatric surgery status from Last 3 Months or Most Recently Relevant to Health Maintenance Results * ID INJECTION SINGLE/RECORDS SECTION SUPERVISOR TRIGGER POINT 1/2 MUSCLES (05/21/2024 8:00 AM CDT) Narrative Valentina Curtis NP - 05/21/2024 8:00 AM CDT Valentina Curtis NP ? 05/22/2024 ??8:52 PM Trigger Point Injection Performed by: Valentina uCrtis NP Authorized by: Valentina Curtis NP ?? [...] IN CLINIC/BEDSIDE ORDERABLE S Final Result * ID INJECTION SINGLE/RECORDS SECTION SUPERVISOR TRIGGER POINT 1/2 MUSCLES (05/21/2024 8:00 AM [...] Result * Hemoglobin A1c (07/11/2018 8:19 AM BOX LINER) Hgb A1C 5.1 <5.7 % of total Hgb [facility] [place] Comment: For the purpose of screening for the presence of diabetes: <5.7% ? Consistent with the absence of diabetes 5.7-6.4% ?Consistent with increased risk for diabetes ?(prediabetes) > or =6.5% ??Consistent with diabetes This assay result is consistent with a decreased risk of diabetes. Currently, no consensus exists regarding use of hemoglobin A1c for diagnosis of diabetes in children. According to [place] Diabetes Association (ADA) guidelines, hemoglobin A1c <7.0% represents optimal control in non- diabetic patients. Different metrics may apply to specific patient populations. Standards of Medical Care in Diabetes(ADA). ?? Blood specimen (specimen) 07/11/2018 8:19 AM BOX LINER 07/11/2018 8:20 AM BOX LINER Narrative [facility] - 07/15/2018 8:57 AM BOX LINER FASTING:YES FASTING: YES Resulting Agency Comment Performing Organization Information: ?Site ID: [place] ?Name: [facility] ?Address: [address] [address] ?Director: Servando Cervantes D.O., MPH us Elli Hernandez MD PhD LAB BLOOD ORDERABLES Kiley garrett Result G[facility] [place] * (ABNORMAL) Lipid panel (07/11/2018 8:19 AM BOX LINER) Cholesterol 139 <200 mg/dL [facility] HDL 38(L) >50 mg/dL [facility] Triglycerides 204(H) <150 mg/dL [facility] LDL 71 mg/dL (calc) [facility] Comment: Reference range: <100 Desirable range <100 mg/dL for primary prevention; ?? <70 mg/dL for patients with CHD or diabetic patients with > or = 2 CHD risk factors. LDL-C is now calculated using the Carlos Enrique calculation, which is a validated novel method providing better accuracy than the Friedewald equation in the estimation of LDL-C. Deep SS et al. JAMAR. 2013;310(19): 4678-1912 (http://education.Kranem/faq/HBK126) Chol/HDL ratio 3.7 <5.0 (calc) [facility] Non-HDL, (LDL+VLDL) 101 <130 mg/dL (calc) [facility] Comment: For patients with diabetes plus 1 major ASCVD risk factor, treating to a non-HDL-C goal of <100 mg/dL (LDL-C of <70 mg/dL) is considered a therapeutic option. Blood specimen (specimen) 07/11/2018 8:19 AM BOX LINER 07/11/2018 8:20 AM BOX LINER Narrative [facility] - 07/15/2018 8:57 AM BOX LINER FASTING:YES FASTING: YES Resulting Agency Comment Performing Organization Information: ?Site ID: [place] ?Name: [facility] ?Address: [address] [facility] [place] [address] ?Director: Servando Cervantes D.O., MPH us Elli Hernandez MD PhD LAB BLOOD ORDERABLES Kiley garrett Result [facility] RICH Mckeon * Comprehensive metabolic panel (07/11/2018 8:19 AM BOX LINER) Glucose 92 65 - 99 mg/dL [facility] [place] Comment: ? Fasting reference interval BUN 21 7 - 25 mg/dL [facility] [place] Creatinine 0.79 0.50 - 1.10 mg/dL [facility] [place] eGFR NON-AFR. NEPALESE 88 > OR = 60 mL/min/1. 73m2 [...] Bilirubin, total 0.4 0.2 - 1.2 mg/dL [facility] [place] Alk phos 73 33 - 115 U/L [facility] [place] AST 17 10 - 35 U/L [facility] [place] ALT (SGPT) 16 6 - 29 U/L [facility] [place] Blood specimen (specimen) 07/11/2018 8:19 AM BOX LINER 07/11/2018 8:20 AM BOX LINER Narrative [facility] - 07/15/2018 8:57 AM BOX LINER FASTING:YES FASTING: YES Resulting Agency Comment Performing Organization Information: ?Site ID: [place] ?Name: [facility] ?Address: [address] [address] [address] [address] ?Director: Servando Cervantes D.O., MPH Elli Hernandez MD PhD LAB BLOOD ORDERABLES Kiley l Result [facility] [place] Mc[place]on from Last 3 Months or Most Recently Relevant to Health Maintenance [place] [address] Care Teams Meteorology Professor Relationship Specialty Start Date End Date Keynona Armstrong PA PCP - General Nurse Practitioner 06/20/18 Gasper Ochoa MD [address] [facility] [address] [place] [address] Consulting Physician Pain Management 08/31/21
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
--- OUTSIDE RECORDS SUMMARY | 2024-07-11 00:40 | XMS_ITS | Encounter Summary ---
Author Organization [facility] Address [address] [place] [address] Care Team Providers Care Hospital Laboratory Technician Name Role Phone Keyonna Armstrong Primary Care Provider + Gasper Ochoa MD Unavailable Reason for Referral * Procedure (Routine) - Closed Specialty Diagnoses / Procedures Referred By Contac t Referred To Contact Diagnoses Myalgia, other site Procedures Trigger Point Injection Valentina Curtis NP [address] [place] [address] [place] [address] Phone: tel: fax: [facility] Referral ID Status Reason Start Date Expiration Date Visits Re quested Visits Authorized [id number] Closed 05/28/2023 06/26/2024 1 1 LOADER * Procedure (Routine) - Closed Specialty Diagnoses / Procedures Referred By Contac t Referred To Contact Diagnoses Myalgia, other site Procedures Trigger Point Injection Valentina Curtis NP [address] [place] [address] [place] [address] Phone: tel: fax: [facility] Referral ID Status Reason Start Date Expiration Date Visits Re quested Visits Authorized [id number] Closed 05/28/2023 06/26/2024 1 1 LOADER Reason for Visit * Reason Comments Pain Encounter Details Date Type Department Care Team (Latest Contact Info) Description 05/28/2023 11:00 AM LEAD LOADER Office Visit [facility] Orthopedics and Sports Medicine [address] [facility] [address] [place] [address] Valentina Curtis, BUYER [address] [facility] [address] [place] [address] Myalgia, other site (Primary Dx); Chronic bilateral [...] on file Legal Sex Female 6:41 PM LEAD LOADER Gender Identity Not on file Sexual Orientation Not on file 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 She went to [facility] April 2021 and had dry needle therapy and physical therapy which she stopped due to increasing pain. She has tried home cervical spine range of motion exercises. April 2021-- she went to Dr. Mars, chiropractor at [facility] with no reduction of pain symptoms. She has tried Voltaren gel, ibuprofen, acetaminophen, Robaxin and ice therapy. She previously triedTylenol #3. 05/30/2021--she was evaluated by Dr. 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 Assessment: Diagnosis Plan 1. Myalgia, other [...] dry needle therapy to be completed at [facility].Her trapezius pain symptoms may be coming from [...] There is preservation of vertebral body height. Xjbf-vb-sjhvzwdv multilevel degenerativeendplate change. Qque-gw-wjnskboa facet arthropathy mid through lower lumbar spine. [...] can be obtained as clinically indicated. Multilevel fqpa-ue-drmnswor endplate degenerative changes with marginal spur formation. [...] indents the ventral cord. Thickened ligamentum flavum. Kffu-wg-uavcxefy spinal canal stenosis. Uncovertebral spurring and facet arthropathy with mild right and pylx-kz-gaaebzdp left neural foraminal narrowing. C7-T1: Anterolisthesis of C7 on T1 with unroofing of the disc. No significant spinal canal or neural foraminal narrowing. UPPER THORACIC: Incompletely imaged. No high-grade spinal canal stenosis. IMPRESSION: Multilevel hnmx-br-nmjvmmal cervical spondylotic changes as described. Spinal canal [...] to the fifth finger, and exhibit full route driver coin machines strength Perfusion: 2+ radial and ulnar pulses. [...] Disp: , Rfl: 1 vit A,C and X-daohih-qarxrgdo (OCUVITE with LUTEIN) 1,000 unit-200 mg-60 unit-2 [...] Encounters: 05/28/23 46.59 kg/m?? Valentina Curtis NP LOADER documented in this encounter Plan of Treatment Not on file documented as of this encounter Procedures Procedure Name Priority Date/Time Associated Diagnosis Comments NC INJECTION SINGLE/CHANGE CONTROL MANAGER TRIGGER POINT 1/2 MUSCLES Routine 05/28/2023 11:00 AM LEAD LOADER Myalgia, other site NC INJECTION SINGLE/CHANGE CONTROL MANAGER TRIGGER POINT 1/2 MUSCLES Routine 05/28/2023 11:00 AM LEAD LOADER Myalgia, other site documented in this encounter Results * NC INJECTION SINGLE/CHANGE CONTROL MANAGER TRIGGER POINT 1/2 MUSCLES (05/28/2023 11:00 AM LEAD LOADER) Narrative Valentina Curtis NP - 05/28/2023 11:00 AM LEAD LOADER Valentina Curtis NP ? 05/28/2023 ??9:45 PM [...] IN CLINIC/BEDSIDE ORDERABLE S Final Result * NC INJECTION SINGLE/CHANGE CONTROL MANAGER TRIGGER POINT 1/2 MUSCLES (05/28/2023 11:00 AM LEAD LOADER) Narrative Valentina Curtis NP - 05/28/2023 11:00 AM LEAD LOADER Valentina Curtis NP ? 05/28/2023 ??9:45 PM [...] of Local Anesthesia Given 05/28/2023 11:00 AM LEAD LOADER 4 mL lidocaine (XYLOCAINE) 10 mg/mL (1 %) injection 4 mL 4 mL, One-Time Injection, Starting on Sun05/28/23 at 1100, For 1 dose, Indications: Administration of Local AnesthesiaIndications:Administrati on of Local Anesthesia Given 05/28/2023 11:00 AM LEAD LOADER 4 mL triamcinolone (KENALOG) 40 mg/mL injection 80 mg 80 mg, One-Time Injection, Starting on Sun05/28/23 at 1100, For 1 doseIndications:Myalgia, other site Given 05/28/2023 11:00 AM LEAD LOADER 80 mg triamcinolone (KENALOG) 40 mg/mL injection 80 mg 80 mg, One-Time Injection, Starting on Sun05/28/23 at 1100, For 1 doseIndications:Myalgia, other site Given 05/28/2023 11:00 AM LEAD LOADER 80 mg documented in this encounter Discontinued [...] documented as of this encounter Care Teams Hospital Laboratory Technician Relationship Specialty Start Date End Date Keyonna Armstrong PA PCP - General Nurse Practitioner 06/20/18 Gasper Ochoa MD [address] [facility] [place] [address] Consulting Physician Pain Management 08/31/21 documented as of this encounter
--- OUTSIDE RECORDS SUMMARY | 2024-07-11 00:40 | XMS_ITS | Encounter Summary ---
Author Organization [facility] Healthcare Address [address] [place] [address] Care Team Providers Care Insurance Instructor Name Role Phone Keyonna Armstrong Primary Care Provider + Gasper Ochoa MD Unavailable Reason for Visit * Reason Comments weight/obesity management Encounter Details Date Type Department Care Team (Late st Contact Info) Description 03/21/2024 11:00 AM CDT Office Visit [facility] Medical Group Family Medicine at [address] [place] [address] Mark Wheat MD [address] [place] [address] Controlled type 2 diabetes mellitus without complication, without long-term current use of insulin ([facility]) ([facility]) (Primary Dx) Social History Tobacco Use Types [...] on file 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 Uncontrolled. cont. Mounjaro 12.5mg [...] without long-term current use of insulin (CMS/HCC) ([facility])- Primary documented in this encounter Discontinued Medications Medication Sig Discontinue Reason Start Date End Da te tirzepatide (Mounjaro) 10 mg/0.5 mL pen injector INJECT 10 MG UNDER THE SKIN EVERY 7 DAYS Therapy completed 11/26/2023 03/21/2024 tirzepatide (Mounjaro) 12.5 mg/0.5 mL pen injectorIndications:Cont rolled type 2 diabetes mellitus without complication, without long-term current use of insulin (CMS/HCC) ([facility]) Inject 12.5 mg under the skin every 7 days Reorder 11/27/2023 03/21/2024 documented as of this encounter Care Teams Insurance Instructor Relationship Specialty Start Date End Date Keyonna Armstrong PA PCP - General Nurse Practitioner 06/20/18 Gasper Ochoa MD [address] [facility] [place] [address] Consulting Physician Pain Management 08/31/21 documented as of this encounter
--- OUTSIDE RECORDS SUMMARY | 2024-07-11 00:40 | XMS_ITS | Encounter Summary ---
Author Organization [facility] Address [address] [place] [address] Care Team Providers Care Edger Hand Name Role Phone Keyonna Armstrong Primary Care Provider + Gasper Ochoa MD Unavailable Reason for Referral * Procedure (Routine) - Closed Specialty Diagnoses / Procedures Referred By Contac t Referred To Contact Diagnoses Myalgia, other site Procedures Trigger Point Injection Valentina Curtis NP [address] [place] [address] [place] [address] Phone: tel: fax: [facility] Referral ID Status Reason Start Date Expiration Date Visits Re quested Visits Authorized [id number] Closed 08/27/2023 09/25/2024 1 1 OR BRAND MANAGER * Procedure (Routine) - Closed Specialty Diagnoses / Procedures Referred By Contac t Referred To Contact Diagnoses Myalgia, other site Procedures Trigger Point Injection Valentina Curtis NP [address] [place] [address] [place] [address] Phone: tel: fax: [facility] Referral ID Status Reason Start Date Expiration Date Visits Re quested Visits Authorized [id number] Closed 08/27/2023 09/25/2024 1 1 OR BRAND MANAGER Reason for Visit * Reason Comments Pain Encounter Details Date Type Department Care Team (Late st Contact Info) Description 08/27/2023 11:00 AM JUNIOR BRAND MANAGER Office Visit 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 Not on file Not on leeann e documented as of this encounter Last Filed Vital Signs Vital Sign Reading Time Taken Comments Blood Pressure - - Pulse - - Temperature - - Respiratory Rate - - Oxygen Saturation - - Inhaled Oxygen Concentration - - Weight 128.4 kg (283 lb) 08/27/2023 11:07 AM JUNIOR BRAND MANAGER Height 165.1 cm (5' 5) 08/27/2023 11:07 AM JUNIOR BRAND MANAGER Body Mass Index 47.09 08/27/2023 11:07 AM JUNIOR BRAND MANAGER documented in this encounter Progress Notes [...] injections given 05/28/2023 She went to [facility] April 2021 and had dry needle therapy and physical therapy which she stopped due to increasing pain. She has home cervical spine range of motion exercises. April 2021-- she went to Dr. Mars, chiropractor at [facility] with no reduction of pain symptoms. 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 Assessment: Diagnosis Plan 1. Myalgia, other [...] There is preservation of vertebral body height. Jbhy-lq-evbkznco multilevel degenerativeendplate change. Fgao-px-vcedeobn facet arthropathy mid through lower lumbar spine. [...] can be obtained as clinically indicated. Multilevel hlhp-sw-nbgzdhxy endplate degenerative changes with marginal spur formation. [...] indents the ventral cord. Thickened ligamentum flavum. Taxu-ih-lyxoplwd spinal canal stenosis. Uncovertebral spurring and facet arthropathy with mild right and ajut-nc-ojzokeua left neural foraminal narrowing. C7-T1: Anterolisthesis of C7 on T1 with unroofing of the disc. No significant spinal canal or neural foraminal narrowing. UPPER THORACIC: Incompletely imaged. No high-grade spinal canal stenosis. IMPRESSION: Multilevel hllq-og-jpefqubz cervical spondylotic changes as described. Spinal canal [...] Disp: , Rfl: 1 vit A,C and O-ymwduc-spjipebg (OCUVITE with LUTEIN) 1,000 unit-200 mg-60 unit-2 [...] Encounters: 08/27/23 47.09 kg/m?? Valentina Curtis NP OR BRAND MANAGER documented in this encounter Plan of Treatment Not on file documented as of this encounter Procedures Procedure Name Priority Date/Time Associated Diagnosis Comments OK INJECTION SINGLE/SECURITY SERVICES MANAGER TRIGGER POINT 1/2 MUSCLES Routine 08/27/2023 11:00 AM JUNIOR BRAND MANAGER Myalgia, other site OK INJECTION SINGLE/SECURITY SERVICES MANAGER TRIGGER POINT 1/2 MUSCLES Routine 08/27/2023 11:00 AM JUNIOR BRAND MANAGER Myalgia, other site documented in this encounter Results * OK INJECTION SINGLE/SECURITY SERVICES MANAGER TRIGGER POINT 1/2 MUSCLES (08/27/2023 11:00 AM JUNIOR BRAND MANAGER) Narrative Valentina Curtis NP - 08/27/2023 11:00 AM JUNIOR BRAND MANAGER Valentina Curtis NP ? 08/27/2023 11:50 AM [...] ORDERABLE S Final Result * OK INJECTION SINGLE/SECURITY SERVICES MANAGER TRIGGER POINT 1/2 MUSCLES (08/27/2023 11:00 AM JUNIOR BRAND MANAGER) Narrative Valentina Curtis NP - 08/27/2023 11:00 AM JUNIOR BRAND MANAGER Valentina Curtis NP ? 08/27/2023 11:50 AM [...] with no immediate complications us Valentina Curtis AIR SEALING TECHNICIAN IN CLINIC/BEDSIDE ORDERABLE S Final Result documented [...] of Local Anesthesia Given 08/27/2023 11:00 AM JUNIOR BRAND MANAGER 4 mL lidocaine (XYLOCAINE) 10 mg/mL (1 %) injection 4 mL 4 mL, One-Time Injection, Starting on Sun08/27/23 at 1100, For 1 dose, Indications: Administration of Local AnesthesiaIndications:Administrati on of Local Anesthesia Given 08/27/2023 11:00 AM JUNIOR BRAND MANAGER 4 mL triamcinolone (KENALOG) 40 mg/mL injection 80 mg 80 mg, One-Time Injection, Starting on Sun08/27/23 at 1100, For 1 doseIndications:Myalgia, other site Given 08/27/2023 11:00 AM JUNIOR BRAND MANAGER 80 mg triamcinolone (KENALOG) 40 mg/mL injection 80 mg 80 mg, One-Time Injection, Starting on Sun08/27/23 at 1100, For 1 doseIndications:Myalgia, other site Given 08/27/2023 11:00 AM JUNIOR BRAND MANAGER 80 mg documented in this encounter Care Teams Edger Hand Relationship Specialty Start Date End Date Keyonna Armstrong PA PCP - General Nurse Practitioner 06/20/18 Gasper Ochoa MD [address] [facility] [place] [address] Consulting Physician Pain Management 08/31/21 documented as of this encounter
--- OUTSIDE RECORDS SUMMARY | 2024-07-11 00:40 | XMS_ITS | Clinical Summary ---
Author Organization [facility] Medical [facility] [address] [place] [address] Care Team Providers Care Literacy Coordinator Name Role Phone Keyonna Armstrong Primary [...] complication, without long-term current use of insulin ([facility]) ([facility]) Inject 12.5 mg under the skin every 7 days 6 mL 3 4 07/01/20 25 Active estradioL (VIVELLE-DOT) 0.05 mg/[address] 1 patch on the skin 2 (two) times a week 4 07/01/20 24 Discontinu ed(Duplica te order) tirzepatide (Mounjaro) 12.5 mg/0.5 mL pen injectorIndicat ions:Controlled type 2 diabetes mellitus without complication, without long-term current use of insulin ([facility]) ([facility]) INJECT 12.5 MG UNDER THE SKIN EVERY [...] complication, without long-term current use of insulin ([facility]) 08/28/2023 Overview (08/28/2023): chronic. Uncontrolled. Increase Mounjaro 7.5mg weekly Abnormal platelets ([facility]) 03/04/2020 Leukocytosis (leucocytosis) 08/26/2019 Reactive thrombocytosis 08/26/2019 [...] (06/26/2018): Added automatically from request for surgery [id number] Calculus of gallbladder with acute cholecystitis without obstruction 06/20/20182018 Encounters Date Type Department Care Team Description 07/01/2024 11:00 AM HELPDESK ANALYST Office Visit [facility] Medical Group Family Medicine at [address] [place] [address] Mark Wheat MD Controlled type 2 diabetes mellitus without complication, without long-term current use of insulin (CMS/HCC) (HCC) (Primary Dx); Class 2 obesity due to excess calories without serious comorbidity with body mass index (BMI) of 39.0 to 39.9 in adult 05/21/2024 8:00 AM CDT Office Visit [facility] Medical Group Orthopedics and Sports Medicine [address] [place] [phone] Valentina Curtis NP Myalgia, other site [...] on file Legal Sex Female 6:41 PM HELPDESK ANALYST Gender Identity Not on file Sexual Orientation Not on file 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 Not on file Not on leeann e Obstetrics History Last Filed Vital Signs Vital Sign Reading Time Taken Comments Blood Pressure 102/72 07/01/2024 11:25 AM HELPDESK ANALYST Pulse 112 07/01/2024 11:25 AM HELPDESK ANALYST Temperature 36 ??C (96.8 ??F) 07/01/2024 11: 25 AM HELPDESK ANALYST Respiratory Rate 18 03/21/2024 10:5 3 AM CDT Oxygen Saturation 96% 07/01/2024 11: 25 AM HELPDESK ANALYST Inhaled Oxygen Concentration - - Weight 107.8 kg (237 lb 9.6 oz) 024 11:25 AM HELPDESK ANALYST Height 165.1 cm (5' 5) 07/01/2024 11:2 5 AM HELPDESK ANALYST Body Mass Index 39.54 07/01/2024 11:25 AM HELPDESK ANALYST Plan of Treatment Health Maintenance Due Date [...] Procedure Name Priority Date/Time Associated Diagnosis Comments MA INJECTION SINGLE/SPECIAL ASSETS OFFICER TRIGGER POINT 1/2 MUSCLES Routine 05/21/2024 8:00 AM CDT Myalgia, other site MA INJECTION SINGLE/SPECIAL ASSETS OFFICER TRIGGER POINT 1/2 MUSCLES Routine 05/21/2024 8:00 AM CDT Myalgia, other site COMPREHENSIVE METABOLIC PANEL Routine 07/11/2018 8:19 AM HELPDESK ANALYST Intestinal malabsorption, unspecified type Bariatric surgery status HEMOGLOBIN A1C Routine 07/11/2018 8:19 AM HELPDESK ANALYST Intestinal malabsorption, unspecified type Bariatric surgery status LIPID PANEL Routine 07/11/2018 8:19 AM HELPDESK ANALYST Intestinal malabsorption, unspecified type Bariatric surgery status from Last 3 Months or Most Recently Relevant to Health Maintenance Results * MA INJECTION SINGLE/SPECIAL ASSETS OFFICER TRIGGER POINT 1/2 MUSCLES (05/21/2024 8:00 AM [...] IN CLINIC/BEDSIDE ORDERABLE S Final Result * MA INJECTION SINGLE/SPECIAL ASSETS OFFICER TRIGGER POINT 1/2 MUSCLES (05/21/2024 8:00 AM [...] with no immediate complications us Valentina Curtis APPRENTICE PLANT ATTENDANT IN CLINIC/BEDSIDE ORDERABLE S Final Result * Hemoglobin A1c (07/11/2018 8:19 AM HELPDESK ANALYST) Hgb A1C 5.1 <5.7 % of total Hgb [facility] [place] Comment: For the purpose of screening for the presence of diabetes: <5.7% ? Consistent with the absence of diabetes 5.7-6.4% ?Consistent with increased risk for diabetes ?(prediabetes) > or =6.5% ??Consistent with diabetes This assay result is consistent with a decreased risk of diabetes. Currently, no consensus exists regarding use of hemoglobin A1c for diagnosis of diabetes in children. According to [place] Diabetes Association (ADA) guidelines, hemoglobin A1c <7.0% represents optimal control in non- diabetic patients. Different metrics may apply to specific patient populations. Standards of Medical Care in Diabetes(ADA). ?? Blood specimen (specimen) 07/11/2018 8:19 AM HELPDESK ANALYST 07/11/2018 8:20 AM HELPDESK ANALYST Narrative [facility] - 07/15/2018 8:57 AM HELPDESK ANALYST FASTING:YES FASTING: YES Resulting Agency Comment Performing Organization Information: ?Site ID: [id number] ?Name: [employer] ?Address: [address] [address] ?Director: Servando Cervantes D.O., MPH us Elli Hernandez MD PhD LAB BLOOD ORDERABLES Kiley garrett Result [facility] [place] * (ABNORMAL) Lipid panel (07/11/2018 8:19 AM HELPDESK ANALYST) Cholesterol 139 <200 mg/dL [facility] [place] HDL 38(L) >50 mg/dL [facility] Triglycerides 204(H) <150 mg/dL [facility] [place] LDL 71 mg/dL (calc) [facility] [place] Comment: Reference range: <100 Desirable range <100 mg/dL for primary prevention; ?? <70 mg/dL for patients with CHD or diabetic patients with > or = 2 CHD risk factors. LDL-C is now calculated using the Deep-Laya calculation, which is a validated novel method providing better accuracy than the Friedewald equation in the estimation of LDL-C. Deep SS et al. JAMAR. 2013;310(19): 4410-7126 (http://education.[employer]/faq/CLB660) Chol/HDL ratio 3.7 <5.0 (calc) [facility] [place] Non-HDL, (LDL+VLDL) 101 <130 mg/dL (calc) [facility] [place] Comment: For patients with diabetes plus 1 major ASCVD risk factor, treating to a non-HDL-C goal of <100 mg/dL (LDL-C of <70 mg/dL) is considered a therapeutic option. Blood specimen (specimen) 07/11/2018 8:19 AM HELPDESK ANALYST 07/11/2018 8:20 AM HELPDESK ANALYST Narrative [facility] - 07/15/2018 8:57 AM HELPDESK ANALYST FASTING:YES FASTING: YES Resulting Agency Comment Performing Organization Information: ?Site ID: [id number] ?Name: [facility] ?Address: [address] [address] ?Director: Servando Cervantes D.O., MPH Elli Hernandez MD PhD LAB BLOOD ORDERABLES Kiley l Result [facility] [place] * Comprehensive metabolic panel (07/11/2018 8:19 AM HELPDESK ANALYST) Glucose 92 65 - 99 mg/dL [facility] [place] Comment: ? Fasting reference interval BUN 21 7 - 25 mg/dL [facility] [place] Creatinine 0.79 0.50 - 1.10 mg/dL [facility] [place] eGFR NON-AFR. BERMUDIAN 88 > OR = 60 mL/min/1. 73m2 [...] [place] Blood specimen (specimen) 07/11/2018 8:19 AM HELPDESK ANALYST 07/11/2018 8:20 AM HELPDESK ANALYST Narrative [facility] - 07/15/2018 8:57 AM HELPDESK ANALYST FASTING:YES FASTING: YES Resulting Agency Comment Performing Organization Information: ?Site ID: [id number] ?Name: [facility] ?Address: [address] [place] [address] [place] [address] ?Director: Servando Cervantes D.O., MPH Elli Hernandez MD PhD LAB BLOOD ORDERABLES Kiley tami Result [facility] [place] from Last 3 Months or Most Recently Relevant to Health Maintenance Insurance [employer] MEDICARE O [employer] MEDICARE HMO MEDICARE [facility] Care Teams Literacy Coordinator Relationship Specialty Start Date End Date Keyonna Armstrong PA PCP - General Nurse Practitioner 06/20/18 Gasper Ochoa MD [address] [facility] [address] [facility] [address] [facility] [place] [address] Consulting Physician Pain Management 08/31/21
--- OUTSIDE RECORDS SUMMARY | 2024-07-11 00:40 | XMS_ITS | Encounter Summary ---
Author Organization [facility] Healthcare Address [address] [place] [address] Care Team Providers Care Kaitara Taraka Name Role Phone Keyonna Armstrong Primary Care Provider + Gasper Ochoa MD Unavailable Reason for Visit * Reason Comments weight/obesity management Encounter Details Date Type Department Care Team (Late st Contact Info) Description 07/01/2024 11:00 AM GROUNDS MAINTENANCE WORKER Office Visit [facility] Family Medicine at [address] [place] [address] Mark Wheat MD [address] [place] [address] Controlled type 2 diabetes mellitus without complication, [...] on file Legal Sex Female 6:41 PM GROUNDS 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 WORKER Gender Identity Not on file Sexual Orientation Not on file 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 Not on file Not on leeann e documented as of this encounter Last Filed Vital Signs Vital Sign Reading Time Taken Comments Blood Pressure 102/72 07/01/2024 11:25 AM GROUNDS MAINTENANCE WORKER Pulse 112 07/01/2024 11:25 AM GROUNDS MAINTENANCE WORKER Temperature 36 ??C (96.8 ??F) 07/01/2024 11: 25 AM GROUNDS MAINTENANCE WORKER Respiratory Rate - - Oxygen Saturation 96% 07/01/2024 11: 25 AM GROUNDS MAINTENANCE WORKER Inhaled Oxygen Concentration - - Weight 107.8 kg (237 lb 9.6 oz) 024 11:25 AM GROUNDS MAINTENANCE WORKER Height 165.1 cm (5' 5) 07/01/2024 11:2 5 AM GROUNDS MAINTENANCE WORKER Body Mass Index 39.54 07/01/2024 11:25 AM GROUNDS MAINTENANCE WORKER documented in this encounter Ordered Prescriptions Prescription Sig Dispense Quantity Refills Last Filled Start Date End Date tirzepatide (Mounjaro) 12.5 mg/0.5 mL pen injectorIndication s:Controlled type 2 diabetes mellitus without complication, without long-term current use of insulin ([facility]/HCC) (HCC) Inject 12.5 mg under the skin [...] and Daily Steps count about 5000 to [id number] Past Medical History: Diagnosis Date Anxiety Arthropathy [...] use of insulin ([facility]) ([facility]) (Primary) Comments: Chronic. Uncontrolled. Goal Weight Reversal: [...] Follow up 1-3 months. Mark Wheat MD NDS MAINTENANCE WORKER documented in this encounter Plan of Treatment Not on file documented as of this encounter Visit Diagnoses Diagnosis Controlled type 2 diabetes mellitus without complication, without long-term current use of insulin ([facility]) ([facility])- Primary Class 2 obesity due to excess [...] complication, without long-term current use of insulin ([facility]) ([facility]) INJECT 12.5 MG UNDER THE SKIN EVERY 7 DAYS Reorder 06/09/2024 07/01/2024 documented as of this encounter Historical Medications * This list may reflect changes made after this encounter. Marlys 0.075 mg/[address] 1 patch on the skin 2 (two) times a week 05/31/2024 added in this encounter Care Teams Kaitara Taraka Relationship Specialty Start Date End Date Keyonna Armstrong PA PCP - General Nurse Practitioner 06/20/18 Gasper Ochoa MD [facility] [address] [facility] [place] [address] Consulting Physician Pain Management 08/31/21 documented as of this encounter
--- OUTSIDE RECORDS SUMMARY | 2024-07-11 00:41 | XMS_ITS | Encounter Summary ---
Author Organization [facility] Address [address] 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 [address] [facility] [place] [address] Consulting Physician Pain Management 08/31/21 documented as of this encounter
--- OUTSIDE RECORDS SUMMARY | 2024-07-11 00:41 | XMS_ITS | Encounter Summary ---
Author Organization [facility] Healthcare Address [address] [place] [address] Care Team Providers Care Javascript Application Developer Name Role Phone Keyonna Armstrong Primary Care Provider + Gasper Ochoa MD Unavailable Reason for Referral * Diagnostic Imaging (Routine) - Closed Specialty Diagnoses / Procedures Referred By Contac t Referred To Contact Diagnoses Chronic right-sided thoracic back pain Procedures XR Spine Thoracic 3 View Valentina Curtis NP [facility] [address] [place] [address] [place] [address] Phone: tel: fax: [address] [phone] Referral ID Status Reason Start Date Expiration Date Visits Re quested Visits Authorized [id number] Closed 10/13/2021 11/12/2022 1 1 Reason for Visit * Diagnostic Imaging (Routine) - Closed Specialty Diagnoses / Procedures Referred By Contac t Referred To Contact Diagnoses Chronic right-sided thoracic back pain Procedures XR Spine Thoracic 3 View Valentina Curtis NP [facility] [address] [place] [address] [place] [address] Phone: tel: fax: [address] [phone] Referral ID Status Reason Start Date Expiration Date Visits Re quested Visits Authorized [id number] Closed 10/13/2021 11/12/2022 1 1 Encounter Details Date Type Department Care Team (Latest Contact Info) Description 10/13/2021 3:15 PM CDT - 10/13/2021 11:59 PM CDT Hospital Encounter [facility] Di[facility] Imaging [address] [place] [address] Chronic right-sided thoracic back pain Discharge Disposition: [...] on file 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 RB T: Report ID: [id number] Reading Location: [id number] Valentina Curtis PAIN MANAGEMENT NURSE PRACTITIONER IMG XR PROCEDURES Final Res ult documented in this encounter Visit Diagnoses Diagnosis Chronic right-sided thoracic back pain documented in this encounter Care Teams Javascript Application Developer Relationship Specialty Start Date End Date Keyonna Armstrong PA PCP - General Nurse Practitioner 06/20/18 Gasper Ochoa MD [address] [facility] [place] [address] Consulting Physician Pain Management 08/31/21 documented as of this encounter
--- OUTSIDE RECORDS SUMMARY | 2024-07-11 00:41 | XMS_ITS | Encounter Summary ---
Author Organization [facility] Address [address] [address] Care Team Providers Care Lab Animal Technologist Name Role Phone Keyonna Armstrong Primary Care Provider + Gasper Ochoa MD Unavailable Reason for Referral * Procedure (Routine) - Closed Specialty Diagnoses / Procedures Referred By Contac t Referred To Contact Diagnoses Pain of left sacroiliac joint Procedures Sacroiliac joint injection Valentina Curtis NP [address] [facility] [address] [place] [address] [place] [address] Phone: tel: fax: [facility] Referral ID Status Reason Start Date Expiration Date Visits Re quested Visits Authorized [id number] Closed 02/26/2023 03/27/2024 1 1 * Procedure (Routine) - Closed Specialty Diagnoses / Procedures Referred By Contac t Referred To Contact Diagnoses Pain of right sacroiliac joint Procedures Sacroiliac joint injection Valentina Curtis NP [facility]0 [facility] [address] [place] [address] [place] [address] Phone: tel: fax: [facility] Referral ID Status Reason Start Date Expiration Date Visits Re quested Visits Authorized [id number] Closed 02/26/2023 03/27/2024 1 1 * Procedure (Routine) - Closed Specialty Diagnoses / Procedures Referred By Lee saunders Referred To Contact Diagnoses Myalgia, other site Procedures Trigger Point Injection Valentina Curtis NP [address] [place] [address] [address] Phone: tel: fax: [facility] Referral ID Status Reason Start Date Expiration Date Visits Re quested Visits Authorized [id number] Closed 02/26/2023 03/27/2024 1 1 Reason for Visit * Reason Comments Pain Encounter Details Date Type Department Care Team (Late st Contact Info) Description 02/26/2023 11:00 AM CDT Office Visit 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 She went to [facility] April 2021 and had dry needle therapy and physical therapy which she stopped due to increasing pain. She has tried home cervical spine range of motion exercises. April 2021-- she went to Dr. Mars, chiropractor at [facility] with no reduction of pain symptoms. 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 Assessment: Diagnosis Plan 1. Myalgia, other [...] pain symptoms. She plans to go to [employer] for water exercises every Sunday and . [...] There is preservation of vertebral body height. Ndio-sl-qykxtlfb multilevel degenerativeendplate change. Xvvb-yn-hljsshig facet arthropathy mid through lower lumbar spine. [...] can be obtained as clinically indicated. Multilevel mvns-kw-cvjggiqr endplate degenerative changes with marginal spur formation. [...] indents the ventral cord. Thickened ligamentum flavum. Legg-of-wekmzrek spinal canal stenosis. Uncovertebral spurring and facet arthropathy with mild right and nzpr-wa-fpaemfjm left neural foraminal narrowing. C7-T1: Anterolisthesis of C7 on T1 with unroofing of the disc. No significant spinal canal or neural foraminal narrowing. UPPER THORACIC: Incompletely imaged. No high-grade spinal canal stenosis. IMPRESSION: Multilevel bpuk-vr-ljqbuoju cervical spondylotic changes as described. Spinal canal [...] to the fifth finger, and exhibit full hoop puncher strength Perfusion: 2+ radial and ulnar pulses. [...] positive for increased right sacroiliac joint pain Sartell's Test is positive for increased right sacroiliac [...] positive for increased left sacroiliac joint pain Sartell's Test is positive for increased left sacroiliac [...] Disp: , Rfl: 1 vit A,C and F-ftuiyp-jzodkzgr (OCUVITE with LUTEIN) 1,000 unit-200 mg-60 unit-2 [...] Procedure Name Priority Date/Time Associated Diagnosis Comments GA INJECTION SINGLE/LANGUAGE INSTRUCTOR TRIGGER POINT 1/2 MUSCLES Routine 02/26/2023 11:00 AM CDT Pain of left sacroiliac joint GA INJECTION SINGLE/LANGUAGE INSTRUCTOR TRIGGER POINT 1/2 MUSCLES Routine 02/26/2023 11:00 AM CDT Pain of right sacroiliac joint GA INJECTION SINGLE/LANGUAGE INSTRUCTOR TRIGGER POINT 1/2 MUSCLES Routine 02/26/2023 11:00 AM CDT Myalgia, other site documented in this encounter Results * GA INJECTION SINGLE/LANGUAGE INSTRUCTOR TRIGGER POINT 1/2 MUSCLES (02/26/2023 11:00 AM [...] IN CLINIC/BEDSIDE ORDERABLE S Final Result * GA INJECTION SINGLE/LANGUAGE INSTRUCTOR TRIGGER POINT 1/2 MUSCLES (02/26/2023 11:00 AM [...] IN CLINIC/BEDSIDE ORDERABLE S Final Result * GA INJECTION SINGLE/LANGUAGE INSTRUCTOR TRIGGER POINT 1/2 MUSCLES (02/26/2023 11:00 AM [...] with no immediate complications us Valentina Curtis DIFFERENTIAL SPECIALIST IN CLINIC/BEDSIDE ORDERABLE S Final Result documented [...] mg documented in this encounter Care Teams Lab Animal Technologist Relationship Specialty Start Date End Date Keyonna Armstrong PA PCP - General Nurse Practitioner 06/20/18 Gasper Ochoa MD [address] [facility] [address] [facility] [place] [address] Consulting Physician Pain Management 08/31/21 documented as of this encounter
--- OUTSIDE RECORDS SUMMARY | 2024-07-11 00:41 | XMS_ITS | Encounter Summary ---
Author Organization [facility] Address [address] [address] Care Team Providers Care Road Cleaner Name Role Phone Keyonna Armstrong Primary Care Provider + Gasper Ochoa MD Unavailable Reason for Referral * Procedure (Routine) - Closed Specialty Diagnoses / Procedures Referred By Contac t Referred To Contact Diagnoses Myalgia, other site Procedures Trigger Point Injection Valentina Curtis NP [address] [facility] [address] [place] [place] [address] Phone: tel: fax: [facility] Referral ID Status Reason Start Date Expiration Date Visits Re quested Visits Authorized [id number] Closed 10/13/2021 11/12/2022 1 1 * Diagnostic Imaging (Routine) - Closed Specialty Diagnoses / Procedures Referred By Contac t Referred To Contact Diagnoses Chronic right-sided thoracic back pain Procedures XR Spine Thoracic 3 View Valentina Curtis NP [facility]0 [facility] [address] [place] [address] [place] [address] Phone: tel: fax: [facility] [address] [place] [phone] Referral ID Status Reason Start Date Expiration Date Visits Re quested Visits Authorized [id number] Closed 10/13/2021 11/12/2022 1 1 Reason for Visit * Reason Comments Pain * Consultation (Routine) - Closed Specialty Diagnoses / Procedures Referred By Lee t Referred To Contact Orthopedic Surgery Diagnoses Right shoulder pain, unspecified chronicity Cervicalgia Keyonna Armstrong PA [address] [place] [address] Phone: tel: fax: [facility] Orthopedics and Sports Medicine [address] [facility] [address] [place] [address] Phone: tel: fax: Referral ID Status Reason Start Date Expiration Date V isits Requested Visits Authorized [id number] Closed Specialty Services Required 05/23/2021 12/19/2021 7 7 Encounter Details Date Type Department Care Team (Late st Contact Info) Description 10/13/2021 2:30 PM CDT Office Visit [facility] Orthopedics and Sports Medicine [address] [facility] [address] [place] [phone] Valentina Curtis NP [address] [place] [address] Chronic right-sided thoracic back pain; Degenerative [...] on file 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 She went to [facility] April 2021 and had dry needle therapy and physical therapy which she stopped due to increasing pain. ?? She has tried home cervical spine range of motion exercises. ?? April 2021-- she went to [facility]. Mars[facility]. ?? [...] Injection Plan: ??? Today I reviewed with aMry Grace, the thoracic spine x-ray obtained October [...] can be obtained as clinically indicated. ??Multilevel lfqa-tg-zzxnjvnv endplate degenerative changes with marginal spur formation. [...] indents the ventral cord. Thickened ligamentum flavum. ??Lxdi-dw-plyeavfq spinal canal stenosis. Uncovertebral spurring and facet arthropathy with mild right and mgix-ih-buuqvzwv left neural foraminal narrowing. C7-T1: Anterolisthesis of C7 on T1 with unroofing of the disc. ??No significant spinal canal or neural foraminal narrowing. UPPER THORACIC: ?Incompletely imaged. No high-grade spinal canal stenosis. IMPRESSION: 1. Multilevel oler-oc-rsvumzvn cervical spondylotic changes as described. Spinal canal [...] to the fifth finger, and exhibit full professor of forest planning strength Perfusion: 2+ radial and ulnar pulses. [...] , Rfl: 1 ??? vit A,C and R-tiobbg-juudeica (OCUVITE with LUTEIN) 1,000 unit-200 mg-60 unit-2 [...] Social History Occupational History ??? 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 Smoking status: Never [...] Priority Date/Time Associated Diagnosis Comments ID INJECTION SINGLE/PRACTICE PROFESSIONAL TRIGGER POINT 1/2 MUSCLES Routine 10/13/2021 2:30 [...] D: ??10/14/2021 8:17 AM T: Report ID: [id number] Reading Location: ??[id number] Procedure Note Emory Fisher MD - 10/14/2021 [...] signed by Emory CONTE T: Report ID: [id number] Reading Location: [id number] us Valentina Curtis NP IMG XR PROCEDURES Final Res ult * ID INJECTION SINGLE/PRACTICE PROFESSIONAL TRIGGER POINT 1/2 MUSCLES (10/13/2021 2:30 PM [...] well with no immediate complications Valentina Curtis MANAGER GAS IN CLINIC/BEDSIDE ORDERABLE S Final Result documented [...] documented as of this encounter Care Teams Road Cleaner Relationship Specialty Start Date End Date Keyonna Armstrong PA PCP - General Nurse Practitioner 06/20/18 Gasper Ochoa MD [address] [facility] [address] [place] [address] Consulting Physician Pain Management 08/31/21 documented as of this encounter
--- OUTSIDE RECORDS SUMMARY | 2024-07-11 00:41 | XMS_ITS | Encounter Summary ---
Author Organization [facility] Address [address] [facility] [address] [place] [address] Care Team Providers Care Cover Mat Machine Operator Name Role Phone Keyonna Armstrong Primary Care Provider + Gasper Ochoa MD Unavailable Encounter Details Date Type Department Care Team (Late st Contact Info) Description 01/17/2022 Telephone [facility] Orthopedics and Sports Medicine [address] [place] [phone] Valentina Curtis NURSERY SCHOOL ATTENDANT [address] [place] [address] [address] [place] [address] Social History Tobacco Use Types [...] on file 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 Gender Identity Not on file Sexual Orientation Not on file 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 Not on file Not on leeann e documented as of this encounter Miscellaneous Notes * Telephone Encounter - Dodie Garcia - 01/19/2022 1:37 PM CDT error documented in this encounter Plan of Treatment Not on file documented as of this encounter Visit Diagnoses Not on filedocumented in this encounter Care Teams Cover Mat Machine Operator Relationship Specialty Start Date End Date Keyonna Armstrong PA PCP - General Nurse Practitioner 06/20/18 Gasper Ochoa MD [address] [facility] [address] [facility] [place] [address] Consulting Physician Pain Management 08/31/21 documented as of this encounter
--- OUTSIDE RECORDS SUMMARY | 2024-07-11 00:41 | XMS_ITS | Encounter Summary ---
Author Organization [facility] Medical [facility] Address [address] [address] Care Team Providers Care Vp Organizational Development Name Role Phone Keyonna Armstrong Primary Care Provider + Gasper Ochoa MD Unavailable Reason for Referral * Procedure (Routine) - Closed Specialty Diagnoses / Procedures Referred By Contac t Referred To Contact Diagnoses Ischiogluteal bursitis, right Procedures Large Joint (Hip, Knee, Shoulder) Injection: R ischiogluteal bursa Valentina Curtis NP [address] [place] [address] Phone: tel: fax: [facility] Referral ID Status Reason Start Date Expiration Date Visits Re quested Visits Authorized [id number] Closed 11/20/2022 12/20/2023 1 1 * Procedure (Routine) - Closed Specialty Diagnoses / Procedures Referred By Contac t Referred To Contact Diagnoses Myalgia, other site Procedures Trigger Point Injection Valentina Curtis NP [facility] [place] [address] Phone: tel: fax: [facility] Medical [facility] Referral ID Status Reason Start Date Expiration Date Visits Re quested Visits Authorized [id number] Closed 11/20/2022 12/20/2023 1 1 Reason for Visit * Reason Comments Pain Pain Encounter Details Date Type Department Care Team (Late st Contact Info) Description 11/20/2022 9:00 AM CDT Office Visit [facility] Medical Group Orthopedics and Sports Medicine [address] [place] [address] [address] [place] [address] Valentina Curtis NP [address] [place] [address] [address] [place] [address] Myalgia, other site (Primary Dx); Chronic bilateral [...] on file 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 She has tried home cervical spine range of motion exercises. April 2021-- she went to Dr. Mars, chiropractor at [facility] with no reduction of pain symptoms. [...] up and walk. 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 Assessment: Diagnosis Plan 1. Myalgia, other [...] There is preservation of vertebral body height. Zefj-uq-npthftth multilevel degenerativeendplate change. Uofg-mh-qlytentt facet arthropathy mid through lower lumbar spine. [...] can be obtained as clinically indicated. Multilevel hhdy-yg-ckvnmotv endplate degenerative changes with marginal spur formation. [...] indents the ventral cord. Thickened ligamentum flavum. Yngf-py-lshxatrf spinal canal stenosis. Uncovertebral spurring and facet arthropathy with mild right and pzkp-fo-wsjzaijm left neural foraminal narrowing. C7-T1: Anterolisthesis of C7 on T1 with unroofing of the disc. No significant spinal canal or neural foraminal narrowing. UPPER THORACIC: Incompletely imaged. No high-grade spinal canal stenosis. IMPRESSION: Multilevel dsnw-sd-cuvqbxqk cervical spondylotic changes as described. Spinal canal [...] by: Valentina Curtis NP Authorized by: Valentina Curits NP Trigger Point Injection: Consent Given by: [...] to the fifth finger, and exhibit full bb shot packer strength Perfusion: 2+ radial and ulnar pulses. [...] Disp: , Rfl: 1 vit A,C and Y-rgmatg-ymqrfbvf (OCUVITE with LUTEIN) 1,000 unit-200 mg-60 unit-2 [...] Procedure Name Priority Date/Time Associated Diagnosis Comments MT ARTHROCENTESIS ASPIR&/INJ MAJOR JT/BURSA W/O US Routine 11/20/2022 9:00 AM CDT Ischiogluteal bursitis, right MT INJECTION SINGLE/PLANT ELECTRICAL ENGINEER TRIGGER POINT 3/> MUSCLES Routine 11/20/2022 9:00 AM CDT Myalgia, other site documented in this encounter Results * MT ARTHROCENTESIS ASPIR&/INJ MAJOR JT/BURSA W/O US (11/20/2022 [...] IN CLINIC/BEDSIDE ORDERABLE S Final Result * MT INJECTION SINGLE/PLANT ELECTRICAL ENGINEER TRIGGER POINT 3/> MUSCLES (11/20/2022 9:00 AM [...] with no immediate complications us Valentina Curtis PEST CONTROL TECHNICIAN IN CLINIC/BEDSIDE ORDERABLE S Final Result [...] Hip documented in this encounter Care Teams Vp Organizational Development Relationship Specialty Start Date End Date Keyonna Armstrong PA PCP - General Nurse Practitioner 06/20/18 Gasper Ochoa MD [address] [facility] [place] [address] Consulting Physician Pain Management 08/31/21 documented as of this encounter
--- OUTSIDE RECORDS SUMMARY | 2024-07-11 00:41 | XMS_ITS | Encounter Summary ---
Author Organization [facility] Medical Group Address [address] [facility] [address] [place] [address] Care Team Providers Care Speech Language Pathology Assistant Name Role Phone Keyonna Armstrong Primary Care Provider + Gasper Ochoa MD Unavailable Reason for Visit * Reason Comments Weight Management Encounter Details Date Type Department Care Team (Late st Contact Info) Description 08/17/2022 10:15 AM OCCUP THER Telemedicine [facility] Medical Group Family Medicine at [address] [place] [address] Mark Wheat MD [address] [place] [address] [address] [place] [address] Abnormal platelets (CMS/HCC) ([facility]) (Primary Dx); Class 3 severe obesity due to excess calories with serious comorbidity and body mass index (BMI) of 45.0 to 49.9 in adult ([facility]) Social History Tobacco Use Types Packs/Day Years [...] on file Legal Sex Female 6:41 PM OCCUP THER Gender Identity Not on file Sexual Orientation Not on file 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 Not on file Not on leeann e documented as of this encounter Last Filed Vital Signs Vital Sign Reading Time Taken Comments Blood Pressure - - Pulse - - Temperature - - Respiratory Rate - - Oxygen Saturation - - Inhaled Oxygen Concentration - - Weight 127 kg (280 lb) 08/17/2022 10:17 AM OCCUP THER Height 165.1 cm (5' 5) 08/17/2022 10:17 AM OCCUP THER Body Mass Index 46.59 08/17/2022 10:17 AM OCCUP THER documented in this encounter Ordered Prescriptions Prescription Sig Dispense Quantity Refills Last Filled Start Date End Date phentermine 30 mg capsuleIndications :Abnormal platelets (CMS/HCC) (HCC),Class 3 severe obesity due to excess calories with serious comorbidity and body mass index (BMI) of 45.0 to 49.9 in adult (HCC) Take 1 capsule (30 mg total) by mouth early childhood education coordinator before breakfast 90 capsule 08/17/2022 3 documented [...] and Daily [place] 5000 to [address] Past Medical History: Diagnosis Date Anxiety Arthropathy [...] NEEDED FOR WHEEZING 1 vit A,C and K-zupwuu-iqvvhpsr (OCUVITE with LUTEIN) 1,000 unit-200 mg-60 unit-2 mg tablet Take 1 tablet by mouth daily zolpidem (AMBIEN) 10 mg tablet TAKE 1 TABLET BY MOUTH AT BEDTIME NEEDED 1 [DISCONTINUED] phentermine 15 mg capsule Take 1 capsule by mouth early childhood education coordinator before breakfast acetaminophen-codeine (TYLENOL with CODEINE #3) [...] 1 capsule (30 mg total) by mouth early childhood education coordinator before breakfast 90 capsule 0 sennosides (Laxative [...] took place via real-time video connection with [employer]. During the visit, I was located at the [facility] Care [facility] [address] and patient was located at home in the state of [place]. The video session started at 10 :30am [...] 1 capsule (30 mg total) by mouth early childhood education coordinator before breakfast Class 3 severe obesity due to excess calories with serious comorbidity and body mass index (BMI) of45.0 to 49.9 in adult (HCC) - phentermine 30 mg capsule; Take 1 capsule (30 mg total) by mouth early childhood education coordinator before breakfast Discussed/Re-emphasized Diet (90%) + Physical Activity (10%) Plan: Discussed/Re-emphasized Vegetables/Fruits Nutritional Ranking Handout: Recommended >80% caloriesfrom Whole Food Plant Based Nutrition. Discussed/Re-emphasized Processed Food (Frozen, Canned, Fast, Refined...) vs. Whole Food/Organic/Non-GMO Discussed/Re-emphasized High Fiber Diet: How to increase fibers in diet Handout being provided. Discussed/Re-emphasized [place]/Phytochemicals Diet. Disucssed/Re-emphasized [place] Diet: Grocery List and Weekly Meal Plan provided. Discussed/Re-emphasized Low Carb Diet (<50g/day) with approximately Low Calories (<1200kcal/day): Grocery List, Daily Meal Plan and Healthy Alternative being provided. Discussed/Re-emphasized Non-weight bearing exercise to complete average 7500- 23273 steps per day: Swimming or Stationary Exercise [...] dinner. 5. Increase Exertion within Daily Activities: 7500-57327 Steps/day. Avoid Elevators, escalators at public places. Increase steps in parking lots!. Office Visit based on Time: I have spent more than 30 minutes Face to Face and xza-adbm-wa-face activities with Patient during office visit and on the date of service. Klw-tkql-im-face activities included Preparing to see the patient [...] Follow up 1-3 months. Mark Wheat MD P THER documented in this encounter Plan of Treatment Not on file documented as of this encounter Visit Diagnoses Diagnosis Abnormal platelets (CMS/HCC) ([facility])- Primary Class 3 severe obesity due to excess calories with serious comorbidity and body mass index (BMI) of 45.0 to 49.9 in adult ([facility]) documented in this encounter Discontinued Medications Medication Sig Discontinue Reason Start Date End Da te phentermine 15 mg capsule Take 1 capsule by mouth early childhood education coordinator before breakfast Reorder 07/12/2022 08/17/2022 documented as of this encounter Historical Medications * This list may reflect changes made after this encounter. cyclobenzaprine (FLEXERIL) 10 mg tablet TAKE 1 TABLET BY MOUTH THREE TIMES A DAY NEEDED FOR MUSCLE SPASM 11/27/2021 3 phentermine 15 mg capsule Take 1 capsule by mouth early childhood education coordinator before breakfast 07/12/2022 3 added in this encounter Care Teams Speech Language Pathology Assistant Relationship Specialty Start Date End Date Keyonna Armstrong PA PCP - General Nurse Practitioner 06/20/18 Gasper Ochoa MD [address] [place] [address] Consulting Physician Pain Management 08/31/21 documented as of this encounter
--- OUTSIDE RECORDS SUMMARY | 2024-07-11 00:41 | XMS_ITS | Encounter Summary ---
Author Organization [facility] Medical Group Address [address] [facility] [address] [place] [address] Care Team Providers Care Analysis Analyst Name Role Phone Keyonna Armstrong Primary Care Provider + Gasper Ochoa MD Unavailable Reason for Visit * Reason Comments Weight Management Referrred by PCP for weight management Encounter Details Date Type Department Care Team (Late st Contact Info) Description 07/12/2022 8:00 AM CONSULTANT NURSE Office Visit [facility] Primary Care at [address] [place] [address] Mark Wheat MD [address] [facility] [address] [place] [address] Abnormal weight gain (Primary Dx); [...] on file Legal Sex Female 6:41 PM CONSULTANT NURSE Gender Identity Not on file Sexual Orientation Not on file 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 Not on file Not on leeann e documented as of this encounter Last Filed Vital Signs Vital Sign Reading Time Taken Comments Blood Pressure 151/105 07/12/2022 8:09 AM CONSULTANT NURSE Pulse 136 07/12/2022 8:09 AM CONSULTANT NURSE pulse is always ari Temperature 36.9 ??C (98.4 ??F) 07/12/2022 8 :09 AM CONSULTANT NURSE Respiratory Rate 14 07/12/2022 8:09 AM CONSULTANT NURSE Oxygen Saturation 96% 07/12/2022 8:0 9 AM CONSULTANT NURSE Inhaled Oxygen Concentration - - Weight - - Height 165.1 cm (5' 5) 07/12/2022 8:09 AM CONSULTANT NURSE Body Mass Index - - documented in [...] and Daily Steps [place] about 5000 to [address] Past Medical History: Diagnosis Date Anxiety Arthropathy [...] NEEDED FOR WHEEZING 1 vit A,C and C-iwnoxd-haysxkod (OCUVITE with LUTEIN) 1,000 unit-200 mg-60 unit-2 [...] fibers in diet Handout being provided. Discussed/Re-emphasized [place]/Phytochemicals Diet. Disucssed/Re-emphasized [place] Diet: Grocery List and Weekly Meal Plan provided. Discussed/Re-emphasized Low Carb Diet (<50g/day) with approximately Low Calories (<1200kcal/day): Grocery List, Daily Meal Plan and Healthy Alternative being provided. Discussed/Re-emphasized Non-weight bearing exercise to complete average 7500- 02952 steps per day: Swimming or Stationary Exercise [...] dinner. 5. Increase Exertion within Daily Activities: 7500-49666 Steps/day. Avoid Elevators, escalators at public places. Increase steps in parking lots!. Office Visit based on Time: I have spent more than 40 minutes Face to Face and efo-vdok-us-face activities with Patient during office visit and on the date of service. Vdc-rqpu-st-face activities included Preparing to see the patient [...] Follow up 1-3 months. Mark Wheat MD ULTANT NURSE documented in this encounter Plan of [...] 08/28/2023 added in this encounter Care Teams Analysis Analyst Relationship Specialty Start Date End Date Keyonna Armstrong PA PCP - General Nurse Practitioner 06/20/18 Gasper Ochoa MD [address] [facility] [address] [place] [address] Consulting Physician Pain Management 08/31/21 documented as of this encounter
--- OUTSIDE RECORDS SUMMARY | 2024-07-11 00:41 | XMS_ITS | Encounter Summary ---
Author Organization [facility] Medical Group Address [address] [facility] [address] [place] [address] Care Team Providers Care Relocation Services Specialist Name Role Phone Keyonna Armstrong Primary Care Provider + Gasper Ochoa MD Unavailable Encounter Details Date Type Department Care Team (Late st Contact Info) Description 01/20/2022 Telephone [facility] Medical Group Orthopedics and Sports Medicine [address] [place] [address] [address] [place] [address] Nelsy Bolden MA Social History [...] on file Legal Sex Female 6:41 PM CONTINUITY TESTER Gender Identity Not on file Sexual Orientation Not on file 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
--- OUTSIDE RECORDS SUMMARY | 2024-07-11 00:41 | XMS_ITS | Encounter Summary ---
Author Organization [facility] Healthcare Address [address] [place] [address] Care Team Providers Care Director Clinical Data Name Role Phone Keyonna Armstrong Primary Care Provider + Gasper Ochoa MD Unavailable Reason for Visit * Reason Onset Date Comments Appointment Request 05/21/2023 Encounter Details Date Type Department Care Team (Late st Contact Info) Description 05/21/2023 Telephone [facility] Group Family Medicine at [address] [address] Mark Wheat MD [address] [place] [address] Appointment Request Social History Tobacco Use Types [...] on file Legal Sex Female 6:41 PM THREAD WINDER AUTOMATIC Gender Identity Not on file Sexual Orientation Not on file 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 Yes Additional Comments: Pt is requesting [...] filedocumented in this encounter Care Teams Director Clinical Data Relationship Specialty Start Date End Date Keyonna Armstrong PA PCP - General Nurse Practitioner 06/20/18 Gasper Ochoa MD [address] [facility] [address] [place] [address] Consulting Physician Pain Management 08/31/21 documented as of this encounter
--- OUTSIDE RECORDS SUMMARY | 2024-07-11 00:41 | XMS_ITS | Encounter Summary ---
Author Organization [facility] Medical Group Address [address] [facility] [address] [place] [address] Care Team Providers Care Licensed Insurance Sales Agent Name Role Phone Keyonna Armstrong Primary Care Provider + Gasper Ochoa MD Unavailable Encounter Details Date Type Department Care Team (Late st Contact Info) Description 01/19/2022 Telephone [facility] Medical Group Orthopedics and Sports Medicine 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
--- OUTSIDE RECORDS SUMMARY | 2024-07-11 00:41 | XMS_ITS | Encounter Summary ---
Author Organization [facility] Medical Group Address [address] [facility] [address] [place] [address] Care Team Providers Care Hoop Coiling Machine Operator Name Role Phone Keyonna Armstrong Primary Care Provider + Gasper Ochoa MD Unavailable Reason for Visit * Reason Onset Date Comments Medication Request 03/22/2023 Encounter Details Date Type Department Care Team (Late st Contact Info) Description 03/22/2023 Telephone [facility] Medical Group Family Medicine at [address] [place] [address] Mark Wheat MD [address] [place] [address] [address] [place] [address] Medication Request Social History Tobacco Use Types [...] file Legal Sex Female 6:41 PM DIRECTOR PROCESS Gender Identity Not on file Sexual Orientation Not on file 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 Not on file Not [...] needed, Pharmacy(s) medication(s) should be sent to: [facility]/pharmacy #[id number] - [place], [place] - [address] [place] [address] Caller???s Callback #: [phone] Additional Comments: na Does message need to [...] (HCC) documented in this encounter Care Teams Hoop Coiling Machine Operator Relationship Specialty Start Date End Date Keyonna Armstrong PA PCP - General Nurse Practitioner 06/20/18 Gasper Ochoa MD [facility] [place] [address] Consulting Physician Pain Management 08/31/21 documented as of this encounter
--- OUTSIDE RECORDS SUMMARY | 2024-07-11 00:41 | XMS_ITS | Encounter Summary ---
Author Organization [facility] Healthcare Address [address] [place] [address] Care Team Providers Care Director Reactor Projects Name Role Phone Keyonna Armstrong Primary Care Provider + Gasper Ochoa MD Unavailable Gasper Ochoa MD Unavailable Reason for Referral * Diagnostic Imaging (Routine) - Closed Specialty Diagnoses / Procedures Referred By Contac t Referred To Contact Diagnoses Neck pain Procedures FL Fluoroscopy < 1 Hour Gasper Ochoa MD [address] [facility] [address] [facility] [place] [address] Phone: tel: fax: [address] [phone] Referral ID Status Reason Start Date Expiration Date Visits Re quested Visits Authorized [id number] Closed 08/31/2021 09/30/2022 1 1 R INCIDENT RESPONDER Reason for Visit * Diagnostic Imaging (Routine) - Closed Specialty Diagnoses / Procedures Referred By Contac t Referred To Contact Diagnoses Neck pain Procedures FL Fluoroscopy < 1 Hour Gasper Ochoa MD [address] [place] [address] Phone: tel: fax: [address] [phone] Referral ID Status Reason Start Date Expiration Date Visits Re quested Visits Authorized [id number] Closed 08/31/2021 09/30/2022 1 1 Encounter Details Date Type Department Care Team (Latest Contact Info) Description 08/31/2021 8:00 AM CYBER INCIDENT RESPONDER - 08/31/2021 1:13 PM CYBER INCIDENT RESPONDER Hospital Encounter [facility] Pain Mgmt Imaging [address] [place] [address] Neck pain Discharge Disposition: Discharge to home [...] on file Legal Sex Female 6:41 PM CYBER INCIDENT RESPONDER Gender Identity Not on file Sexual Orientation Not on file 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 ??Please refer to the physician's procedure / OR operative note. Gasper Ochoa MD IMG FLUOROSCOPY PROCEDURES Final Result [facility] NON LAB documented in this encounter Visit Diagnoses Diagnosis Neck pain Cervicalgia documented in this encounter Care Teams Director Reactor Projects Relationship Specialty Start Date End Date Keyonna Armstrong PA PCP - General Nurse Practitioner 06/20/18 Gasper Ochoa MD [address] [place] [address] Consulting Physician Pain Management 08/31/21 Gasper Ochoa MD [address] [facility] [address] [facility] [place] [address] Consulting Physician Pain Management 08/31/21 08/31/21 documented as of this encounter
--- OUTSIDE RECORDS SUMMARY | 2024-07-11 00:41 | XMS_ITS | Encounter Summary ---
Author Organization [facility] Medical Group Address [address] [address] Care Team Providers Care Gyro Compass Tester Name Role Phone Keyonna Armstrong Primary Care Provider + Gasper Ochoa MD Unavailable Reason for Visit * Reason Onset Date Comments Medical Question/Miscellaneous 06/07/2022 Encounter Details Date Type Department Care Team (Late st Contact Info) Description 06/07/2022 Telephone [facility] Medical [facility] Primary Care at [address] [place] [address] Keyonna Armstrong PA [address] [place] [address] Medical Question/Miscellaneous Social History Tobacco Use [...] on file Legal Sex Female 6:41 PM COMIC BOOK 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 Wheat. Information was relayed. No further assistance needed at this time. Caller???s Call back #: [phone] Does message need to be routed?No C BOOK WRITER documented in this encounter Plan of Treatment Not on file documented as of this encounter Visit Diagnoses Not on filedocumented in this encounter Care Teams Gyro Compass Tester Relationship Specialty Start Date End Date Keyonna Armstrong PA PCP - General Nurse Practitioner 06/20/18 Gasper Ochoa MD [address] [facility] [address] [place] [address] Consulting Physician Pain Management 08/31/21 documented as of this encounter
--- OUTSIDE RECORDS SUMMARY | 2024-07-11 00:41 | XMS_ITS | Encounter Summary ---
Author Organization [facility] Healthcare Address [address] [place] [address] Care Team Providers Care Senior Information Security Analyst Name Role Phone Keyonna Armstrong Primary Care Provider + Gasper Ochoa MD Unavailable Reason for Visit * Reason Comments Neck Pain Encounter Details Date Type Department Care Team (Latest Contact Info) Description 09/14/2021 8:38 AM PAINTER STRUCTURAL STEEL - 09/14/2021 11:59 PM PAINTER STRUCTURAL STEEL Hospital Encounter [facility] Pain Mgmt [address] [place] [address] Gasper Ochoa MD [address] [place] [address] [place] [address] Bulge of cervical disc without [...] on file Legal Sex Female 6:41 PM PAINTER STRUCTURAL STEEL Gender Identity Not on file Sexual Orientation Not on file 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 Not on leeann e documented as of this encounter Last Filed Vital Signs Vital Sign Reading Time Taken Comments Blood Pressure 137/82 09/14/2021 9:49 AM PAINTER STRUCTURAL STEEL Pulse 79 09/14/2021 9:49 AM PAINTER STRUCTURAL STEEL Temperature 36.5 ??C (97.7 ??F) 09/14/2021 8:42 AM CS T Respiratory Rate 20 09/14/2021 9:49 AM PAINTER STRUCTURAL STEEL Oxygen Saturation 96% 09/14/2021 9:49 AM PAINTER STRUCTURAL STEEL Inhaled Oxygen Concentration - - Weight - - Height - - Body Mass Index - - documented in this encounter Discharge Instructions * Discharge Instructions* Stella Weiss RN - 09/14/2021 9:53 AM PAINTER STRUCTURAL STEEL YOUR NEXT APPOINTMENT IS FOR A FOLLOW-UP EVALUATION HOME CARE INSTRUCTIONS - INJECTIONS What to do today after you leave the clinic: -Generally limit your activity today, but bed rest is not required. -DO NOT DRIVE or operate machinery (e.g., a ticket sales supervisor or sewing machine) for 12 hours. -Don't [...] you don't understand or can'tcomplete at home. TER STRUCTURAL STEEL documented in this encounter Medications at Time [...] of this patient. Job ID/VF Job ID: [id number] TER STRUCTURAL STEEL documented in this encounter Plan of Treatment [...] For 1 dose Given 09/14/2021 9:06 AM PAINTER STRUCTURAL STEEL 1 mg documented in this encounter Historical Medications * This list may reflect changes made after this encounter. NOT IN DATABASE, PRESCRIPTION, Spark Zinc and Selenium supplement for thyroid 4 added in this encounter Care Teams Senior Information Security Analyst Relationship Specialty Start Date End Date Keyonna Armstrong PA PCP - General Nurse Practitioner 06/20/18 Gasper Ochoa MD [address] [place] [address] Consulting Physician Pain Management 08/31/21 documented as of this encounter
--- OUTSIDE RECORDS SUMMARY | 2024-07-11 00:41 | XMS_ITS | Encounter Summary ---
Author Organization [facility] Address [address] [facility] [address] [place] [address] Care Team Providers Care Shipyard Painter Name Role Phone Keyonna Armstrong Primary Care Provider + Gasper Ochoa MD Unavailable Reason for Visit * Reason Onset Date Comments Medical Question/Miscellaneous 08/16/2022 Encounter Details Date Type Department Care Team (Late st Contact Info) Description 08/16/2022 Telephone [facility] Patient Access [address] [facility] [address] [place] [address] Keyonna Armstrong PA [address] [place] [phone] Medical Question/Miscellaneous Social History Tobacco Use [...] on file Legal Sex Female 6:41 PM BELL SPINNER Gender Identity Not on file Sexual Orientation Not on file 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 SPINNER * Telephone Encounter - Melvin Ruiz - [...] to do next. Caller???s Call back #: [phone] Does message need to be routed?Yes-Action Needed SPINNER documented in this encounter Plan of Treatment Not on file documented as of this encounter Visit Diagnoses Not on filedocumented in this encounter Care Teams Shipyard Painter Relationship Specialty Start Date End Date Keyonna Armstrong PA PCP - General Nurse Practitioner 06/20/18 Gasper Ochoa MD [address] [facility] [address] [facility] [place] [address] Consulting Physician Pain Management 08/31/21 documented as of this encounter
--- OUTSIDE RECORDS SUMMARY | 2024-07-11 00:41 | XMS_ITS | Encounter Summary ---
Author Organization [facility] Healthcare Address [address] [place] [address] Care Team Providers Care Renewable Energy Project Manager Name Role Phone Keyonna Armstrong Primary Care Provider + Gasper Ochoa MD Unavailable Gasper Ochoa MD Unavailable Reason for Visit * Reason Comments Injections B/L C. 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 Not on file Not on leeann e documented as of this encounter Last Filed Vital Signs Vital Sign Reading Time Taken Comments Blood Pressure 138/86 08/31/2021 2:29 PM PYROMETER MECHANIC Pulse 103 08/31/2021 2:29 PM PYROMETER MECHANIC Temperature 36.3 ??C (97.3 ??F) 08/31/2021 1:38 PM CS T Respiratory Rate 18 08/31/2021 2:29 PM PYROMETER MECHANIC Oxygen Saturation 99% 08/31/2021 2:29 PM PYROMETER MECHANIC Inhaled Oxygen Concentration - - Weight - - Height - - Body Mass Index - - documented in this encounter Discharge Instructions * Discharge Instructions* Stella Weiss RN - 08/31/2021 1:28 PM PYROMETER MECHANIC HOME CARE INSTRUCTIONS - INJECTIONS What to do today after you leave the clinic: -Generally limit your activity today, but bed rest is not required. -DO NOT DRIVE or operate machinery (e.g., a drug purchaser or sewing machine) for 12 hours. -Don't [...] you don't understand or can'tcomplete at home. METER MECHANIC documented in this encounter Medications at Time [...] be an acceptable risk forthe procedure today. METER MECHANIC Source Note - Gasper Ochoa MD - 08/23/2021 10:45 AM PYROMETER MECHANIC New Patient Consultation Chief Complaint: Neck Pain [...] BARIATRIC SURGERY 20yrs ago ??? CHOLECYSTECTOMY ??? CAROLS MANUEL-EN-Y PROCEDURE 09/[address] Lafleur [...] pain. Patient agreed with the treatment plan. METER MECHANIC documented in this encounter Procedure Notes * [...] of this patient. Job ID/VF Job ID: [id number] METER MECHANIC documented in this encounter Plan of Treatment Not on file documented as of this encounter Visit Diagnoses Diagnosis Facet arthropathy, cervical- Primary Pain of cervical facet joint documented in this encounter Orders Medications Ordered That Peng ht Not Have Been Administered Count Last Ordered Date First Ordered Date LORazepam (ATIVAN) tablet 1 mg 1 08/31/2021 documented in this encounter Care Teams Renewable Energy Project Manager Relationship Specialty Start Date End Date Keyonna Armstrong PA PCP - General Nurse Practitioner 06/20/18 Gasper Ochoa MD [address] [facility] [facility] [facility] [address] [place] [address] [facility] [place] [address] Consulting Physician Pain Management 08/31/21 Gasper Ochoa MD [address] [facility] [facility] [address] [place] [address] [facility] [place] [address] Consulting Physician Pain Management 08/31/21 08/31/21 documented as of this encounter
--- OUTSIDE RECORDS SUMMARY | 2024-07-11 00:41 | XMS_ITS | Encounter Summary ---
Author Organization [facility] Address [address] [facility] [address] [place] [address] Care Team Providers Care Bridge Painter Name Role Phone Keyonna Armstrong Primary Care Provider + Gasper Ochoa MD Unavailable Reason for Referral * Procedure (Routine) - Closed Specialty Diagnoses / Procedures Referred By Contac t Referred To Contact Diagnoses Ischiogluteal bursitis, right Procedures Large Joint (Hip, Knee, Shoulder) Injection: R ischiogluteal bursa Valentina Curtis NP [address] [address] [place] [address] [place], [place] [id number] Phone: tel: fax: [facility] Referral ID Status Reason Start Date Expiration Date Visits Re quested Visits Authorized [id number] Closed 08/22/2022 09/21/2023 1 1 R ENERGY SPECIALIST * Procedure (Routine) - Closed Specialty Diagnoses / Procedures Referred By Contac t Referred To Contact Diagnoses Myalgia, other site Procedures Trigger Point Injection [facility] [address] [place] [address] [place] [address] Phone: tel: fax: [facility] Medical [facility] Referral ID Status Reason Start Date Expiration Date Visits Re quested Visits Authorized [id number] Closed 08/22/2022 09/21/2023 1 1 R ENERGY SPECIALIST * Procedure (Routine) - Closed Specialty Diagnoses / Procedures Referred By Lee saunders Referred To Contact Diagnoses Myalgia, other site Procedures Trigger Point Injection Valentina Curtis NP [address] [place] [address] [address] [place] [address] [place] [address] Phone: tel: fax: [facility] Medical [facility] Referral ID Status Reason Start Date Expiration Date Visits Re quested Visits Authorized [id number] Closed 08/22/2022 09/21/2023 1 1 R ENERGY SPECIALIST Reason for Visit * Reason Comments Pain Injections Pain Injections Encounter Details Date Type Department Care Team (Latest Contact Info) Description 08/22/2022 9:00 AM SOLAR ENERGY SPECIALIST Office Visit [facility] Orthopedics and Sports Medicine [address] [place] [phone] Valentina Curtis NP [address] [place] [address] [address] Myalgia, other site (Primary Dx); Ischiogluteal bursitis, [...] on file Legal Sex Female 6:41 PM SOLAR ENERGY SPECIALIST Gender Identity Not on file Sexual Orientation Not on file 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 Not on file Not on leeann e documented as of this encounter Last Filed Vital Signs Vital Sign Reading Time Taken Comments Blood Pressure - - Pulse - - Temperature - - Respiratory Rate - - Oxygen Saturation - - Inhaled Oxygen Concentration - - Weight 127 kg (280 lb) 08/22/2022 9:19 AM SOLAR ENERGY SPECIALIST Height 165.1 cm (5' 5) 08/22/2022 9:19 AM SOLAR ENERGY SPECIALIST Body Mass Index 46.59 08/22/2022 9:19 AM SOLAR ENERGY SPECIALIST documented in this encounter Progress Notes * Valentina Curtis, TECHNICIAN TERMINAL AND REPEATER - 08/22/2022 9:00 AM CSTAssociated Order(s): Trigger [...] evaluations include the following: She went to [facility] April 2021 and had dry needle therapy and physical therapy which she stopped due to increasing pain. She has tried home cervical spine range of motion exercises. April 2021-- she went to Dr. Mars, chiropractor at [facility] with no reduction of pain [...] up and walk. 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 Assessment: Diagnosis Plan 1. Myalgia, other [...] There is preservation of vertebral body height. Xzpa-bl-vlnhgtts multilevel degenerativeendplate change. Akig-fj-pnrjygsy facet arthropathy mid through lower lumbar spine. [...] can be obtained as clinically indicated. Multilevel vwkw-hz-jwegjcmk endplate degenerative changes with marginal spur formation. [...] indents the ventral cord. Thickened ligamentum flavum. Dodt-ro-bgmfasff spinal canal stenosis. Uncovertebral spurring and facet arthropathy with mild right and awsz-ud-xguqtwjl left neural foraminal narrowing. C7-T1: Anterolisthesis of C7 on T1 with unroofing of the disc. No significant spinal canal or neural foraminal narrowing. UPPER THORACIC: Incompletely imaged. No high-grade spinal canal stenosis. IMPRESSION: Multilevel nnhg-ac-xboazfaq cervical spondylotic changes as described. Spinal canal [...] to the fifth finger, and exhibit full speed winder strength Perfusion: 2+ radial and ulnar pulses. [...] 1 capsule (30 mg total) by mouth blood coordinator before breakfast, Disp: 90 capsule, Rfl: 0 venlafaxine XR (EFFEXOR-XR) 75 mg 24 hr capsule, Take 225 mg by mouth nightly., Disp: , Rfl: VENTOLIN HFA 90 mcg/actuation inhaler, TAKE 2 PUFFS BY MOUTH EVERY 4 HOURS NEEDED FOR WHEEZING, Disp: , Rfl: 1 vit A,C and T-lugxtt-glxvoige (OCUVITE with LUTEIN) 1,000 unit-200 mg-60 unit-2 [...] Encounters: 08/22/22 46.59 kg/m?? Valentina Curtis NP R ENERGY SPECIALIST documented in this encounter Plan of Treatment Not on file documented as of this encounter Procedures Procedure Name Priority Date/Time Associated Diagnosis Comments MD ARTHROCENTESIS ASPIR&/INJ MAJOR JT/BURSA W/O US Routine 08/22/2022 9:00 AM SOLAR ENERGY SPECIALIST Ischiogluteal bursitis, right MD INJECTION SINGLE/ZINC PLATING MACHINE OPERATOR TRIGGER POINT 1/2 MUSCLES Routine 08/22/2022 9:00 AM SOLAR ENERGY SPECIALIST Myalgia, other site MD INJECTION SINGLE/ZINC PLATING MACHINE OPERATOR TRIGGER POINT 1/2 MUSCLES Routine 08/22/2022 9:00 AM SOLAR ENERGY SPECIALIST Myalgia, other site documented in this encounter Results * MD ARTHROCENTESIS ASPIR&/INJ MAJOR JT/BURSA W/O US (08/22/2022 9:00 AM SOLAR ENERGY SPECIALIST) Narrative Valentina Curtis NP - 08/22/2022 9:00 AM SOLAR ENERGY SPECIALIST Valentina Curtis NP ? 08/22/2022 ??6:26 PM [...] IN CLINIC/BEDSIDE ORDERABLE S Final Result * MD INJECTION SINGLE/ZINC PLATING MACHINE OPERATOR TRIGGER POINT 1/2 MUSCLES (08/22/2022 9:00 AM SOLAR ENERGY SPECIALIST) Narrative Valentina Curtis NP - 08/22/2022 9:00 AM SOLAR ENERGY SPECIALIST Valentina Curtis NP ? 08/22/2022 ??6:26 PM [...] with no immediate complications us Valentina Curtis TECHNICIAN TERMINAL AND REPEATER IN CLINIC/BEDSIDE ORDERABLE S Final Result * MD INJECTION SINGLE/ZINC PLATING MACHINE OPERATOR TRIGGER POINT 1/2 MUSCLES (08/22/2022 9:00 AM SOLAR ENERGY SPECIALIST) Narrative Valentina Curtis NP - 08/22/2022 9:00 AM SOLAR ENERGY SPECIALIST Valentina Curtis NP ? 08/22/2022 ??6:26 PM [...] of Local Anesthesia Given 08/22/2022 10:19 AM SOLAR ENERGY SPECIALIST 2 mL lidocaine (XYLOCAINE) 10 mg/mL (1 %) injection 2 mL 2 mL, One-Time Injection, Starting on Sun08/22/22 at 1022, For 1 dose, Indications: Administration of Local AnesthesiaIndications:Administr ation of Local Anesthesia Given 08/22/2022 10:22 AM SOLAR ENERGY SPECIALIST 2 mL Right Hip lidocaine (XYLOCAINE) 10 mg/mL (1 %) injection 4 mL 4 mL, One-Time Injection, Starting on Sun08/22/22 at 1020, For 1 dose, Indications: Administration of Local AnesthesiaIndications:Administr ation of Local Anesthesia Given 08/22/2022 10:20 AM SOLAR ENERGY SPECIALIST 4 mL triamcinolone (KENALOG) 40 mg/mL injection 40 mg 40 mg, intra-articular, One-Time Injection, Starting on Sun08/22/22 at 1022, For 1 doseIndications:Ischiogluteal bursitis, right Given 08/22/2022 10:22 AM SOLAR ENERGY SPECIALIST 40 mg Right Hip triamcinolone (KENALOG) 40 mg/mL injection 80 mg 80 mg, One-Time Injection, Starting on Sun08/22/22 at 1019, For 1 doseIndications:Myalgia, other site Given 08/22/2022 10:19 AM SOLAR ENERGY SPECIALIST 80 mg triamcinolone (KENALOG) 40 mg/mL injection 80 mg 80 mg, One-Time Injection, Starting on Sun08/22/22 at 1020, For 1 doseIndications:Myalgia, other site Given 08/22/2022 10:20 AM SOLAR ENERGY SPECIALIST 80 mg documented in this encounter Care Teams Bridge Painter Relationship Specialty Start Date End Date Keyonna Armstrong PA PCP - General Nurse Practitioner 06/20/18 Gasper Ochoa MD [address] [place] [address] [place] [address] Consulting Physician Pain Management 08/31/21 documented as of this encounter
--- OUTSIDE RECORDS SUMMARY | 2024-07-11 00:41 | XMS_ITS | Encounter Summary ---
Author Organization [facility] Address [address] [address] Care Team Providers Care Senior Integration Developer Name Role Phone Keyonna Armstrong Primary Care Provider + Gasper Ochoa MD Unavailable Reason for Referral * Procedure (Routine) - Closed Specialty Diagnoses / Procedures Referred By Contac t Referred To Contact Diagnoses Chronic bilateral low back pain with bilateral sciatica Procedures Trigger Point Injection Valentina Curtis NP [address] [address] [place] [address] [place] [address] Phone: tel: fax: [facility] Referral ID Status Reason Start Date Expiration Date Visits Re quested Visits Authorized [id number] Closed 05/22/2022 06/21/2023 1 1 * Procedure (Routine) - Closed Specialty Diagnoses / Procedures Referred By Contac t Referred To Contact Diagnoses Chronic bilateral low back pain with bilateral sciatica Procedures Trigger Point Injection Valentina Curtis NP [facility] [facility] [address] [place] [address] [place] [address] Phone: tel: fax: [facility] Referral ID Status Reason Start Date Expiration Date Visits Re quested Visits Authorized [id number] Closed 05/22/2022 06/21/2023 1 1 * Diagnostic Imaging (Routine) - Closed Specialty Diagnoses / Procedures Referred By Contac t Referred To Contact Diagnoses Chronic bilateral low back pain with bilateral sciatica Procedures XR Spine Lumbar W Bending 6 or More Views Valentina Curtis NP [facility] [address] [place] [address] Phone: tel: fax: [address] [phone] Referral ID Status Reason Start Date Expiration Date Visits Re quested Visits Authorized [id number] Closed 05/22/2022 06/21/2023 1 1 Reason for Visit * Reason Comments Pain Injections Encounter Details Date Type Department Care Team (Late st Contact Info) Description 05/22/2022 10:00 AM CDT Office Visit [facility] Orthopedics and Sports Medicine [address] [place] [phone] Valentina Curtis NP [address] [place] [address] Chronic bilateral low back pain with bilateral sciatica (Primary Dx); Anterolisthesis of lumbar spine-mild L1 on L2, L2 on L3 and L3 on L4; Lumbar facet arthropathy; DDD (degenerative disc disease), lumbar; Chronic neck pain; Myalgia, other site; BMI 45.0-49.9, adult ([facility]) ([facility]) Social History Tobacco Use Types Packs/Day Years [...] file Legal Sex Female 6:41 PM AIR EXPORT AGENT Gender Identity Not on file Sexual Orientation Not on file 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 She has tried home cervical spine range of motion exercises. April 2021-- she went to Dr. Mars, chiropractor at [facility] with no reduction of pain [...] Myalgia, other site 7. BMI 45.0-49.9, adult ([facility]) ([facility]) Plan: For her lumbar pain symptoms with [...] There is preservation of vertebral body height. Byxk-mo-vyhobfqj multilevel degenerativeendplate change. Zhhn-ds-ukhpjtcv facet arthropathy mid through lower lumbar spine. [...] can be obtained as clinically indicated. Multilevel wnok-em-cbggctwj endplate degenerative changes with marginal spur formation. [...] indents the ventral cord. Thickened ligamentum flavum. Sbku-lf-akmdbcdn spinal canal stenosis. Uncovertebral spurring and facet arthropathy with mild right and fnkk-xn-ifqikplr left neural foraminal narrowing. C7-T1: Anterolisthesis of C7 on T1 with unroofing of the disc. No significant spinal canal or neural foraminal narrowing. UPPER THORACIC: Incompletely imaged. No high-grade spinal canal stenosis. IMPRESSION: Multilevel evjd-wd-hozveaci cervical spondylotic changes as described. Spinal canal [...] to the fifth finger, and exhibit full chemical operator strength Perfusion: 2+ radial and ulnar [...] Disp: , Rfl: 1 vit A,C and J-ccjqec-uelbttee (OCUVITE with LUTEIN) 1,000 unit-200 mg-60 unit-2 [...] Procedure Name Priority Date/Time Associated Diagnosis Comments ND INJECTION SINGLE/SILICA FILTER OPERATOR TRIGGER POINT 1/2 MUSCLES Routine 05/22/2022 10:00 AM CDT Chronic bilateral low back pain with bilateral sciatica ND INJECTION SINGLE/SILICA FILTER OPERATOR TRIGGER POINT 1/2 MUSCLES Routine 05/22/2022 10:00 [...] There is preservation of vertebral body height. ??Yvqf-ms-voqtljxt multilevel degenerative endplate change. ??Lyht-ty-uowytebk facet arthropathy mid through lower lumbar spine. [...] D: ??05/22/2022 12:24 PM T: Report ID: [id number] Reading Location: ??[id number] Procedure Note Pepe Adan MD - 05/22/2022 [...] VERTEBRAE: There is preservation of vertebral body height.Yorn-jk-wncexdmp multilevel degenerative endplate change. Wqct-ui-hwdtwfhk facetarthropathy mid through lower lumbar spine. This [...] signed by Pepe FAUSTIN T: Report ID: [id number] Reading Location: [id number] Valentina Cutris NP IMG XR PROCEDURES Final Res ult * ND INJECTION SINGLE/SILICA FILTER OPERATOR TRIGGER POINT 1/2 MUSCLES (05/22/2022 10:00 AM [...] IN CLINIC/BEDSIDE ORDERABLE S Final Result * ND INJECTION SINGLE/SILICA FILTER OPERATOR TRIGGER POINT 1/2 MUSCLES (05/22/2022 10:00 AM [...] with no immediate complications us Valentina Curtis CHILD CARE SITTER IN CLINIC/BEDSIDE ORDERABLE S Final Result documented [...] 08/28/2023 added in this encounter Care Teams Senior Integration Developer Relationship Specialty Start Date End Date Keyonna Amrstrong PA PCP - General Nurse Practitioner 06/20/18 Gasper Ochoa MD [address] [place] [address] Consulting Physician Pain Management 08/31/21 documented as of this encounter
--- OUTSIDE RECORDS SUMMARY | 2024-07-11 00:41 | XMS_ITS | Encounter Summary ---
Author Organization [facility] Address [address] [facility] [address] [place] [address] Care Team Providers Care Mortuary Operations Manager Name Role Phone Keyonna Armstrong Primary Care Provider + Gasper Ochoa MD Unavailable Encounter Details Date Type Department Care Team (Late st Contact Info) Description 03/14/2022 Telephone [facility] Orthopedics and Sports Medicine [address] [place] [address] [address] [place] [phone] Nelsy Bolden MA Social History [...] on file Legal Sex Female 6:41 PM BUILDING CONSTRUCTION ENGINEER Gender Identity Not on file Sexual Orientation Not on file 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
--- OUTSIDE RECORDS SUMMARY | 2024-07-11 00:41 | XMS_ITS | Encounter Summary ---
Author Organization [facility] Healthcare Address [address] [place] [address] Care Team Providers Care Skid Strapper Name Role Phone Keyonna Armstrong Primary Care Provider + Gasper Ochoa MD Unavailable Reason for Referral * Diagnostic Imaging (Routine) - Closed Specialty Diagnoses / Procedures Referred By Contac t Referred To Contact Diagnoses Neck pain Procedures FL Fluoroscopy < 1 Hour Gasper Ochoa MD [address] [facility] [address] [facility] [place] [address] Phone: tel: fax: [address] [phone] Referral ID Status Reason Start Date Expiration Date Visits Re quested Visits Authorized [id number] Closed 09/14/2021 10/14/2022 1 1 SETTER Reason for Visit * Diagnostic Imaging (Routine) - Closed Specialty Diagnoses / Procedures Referred By Contac t Referred To Contact Diagnoses Neck pain Procedures FL Fluoroscopy < 1 Hour Gasper Ochoa MD [address] [facility] [place] [address] Phone: tel: fax: [address] [phone] Referral ID Status Reason Start Date Expiration Date Visits Re quested Visits Authorized [id number] Closed 09/14/2021 10/14/2022 1 1 Encounter Details Date Type Department Care Team (Latest Contact Info) Description 09/14/2021 8:00 AM POLE SETTER - 09/14/2021 8:37 AM POLE SETTER Hospital Encounter [facility] Pain Mgmt Imaging [address] [place] [address] Neck pain Discharge Disposition: Discharge to home [...] on file Legal Sex Female 6:41 PM POLE SETTER Gender Identity Not on file Sexual Orientation Not on file 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 Photocollect NON LAB - 09/14/2021 12:07 PM POLE SETTER The images from this study are not interpreted by Radiology. ??Please refer to the physician's procedure / OR operative note. Gasper Ochoa MD IMG FLUOROSCOPY PROCEDURES Final Result [facility] Phot[facility]lect NON LAB documented in this encounter Visit Diagnoses Diagnosis Neck pain Cervicalgia documented in this encounter Care Teams Skid Strapper Relationship Specialty Start Date End Date Keyonna Armstrong PA PCP - General Nurse Practitioner 06/20/18 Gasper Ochoa MD [address] [facility] [address] [place] [address] Consulting Physician Pain Management 08/31/21 documented as of this encounter
--- OUTSIDE RECORDS SUMMARY | 2024-07-11 00:41 | XMS_ITS | Encounter Summary ---
Author Organization [facility] Healthcare Address [address] [place] [address] Care Team Providers Care Stove Cleaner Name Role Phone Keyonna Armstrong Primary Care Provider + Gasper Ochoa MD Unavailable Reason for Referral * Diagnostic Imaging (Routine) - Closed Specialty Diagnoses / Procedures Referred By Contac t Referred To Contact Diagnoses Chronic bilateral low back pain with bilateral sciatica Procedures XR Spine Lumbar W Bending 6 or More Views Valentina Curtis NP [facility] [address] [place] [address] Phone: tel: fax: [address] [phone] Referral ID Status Reason Start Date Expiration Date Visits Re quested Visits Authorized [id number] Closed 05/22/2022 06/21/2023 1 1 Reason for Visit * Diagnostic Imaging (Routine) - Closed Specialty Diagnoses / Procedures Referred By Contac t Referred To Contact Diagnoses Chronic bilateral low back pain with bilateral sciatica Procedures XR Spine Lumbar W Bending 6 or More Views Valentina Curtis NP [facility] [address] [place] [address] Phone: tel: fax: [address] [phone] Referral ID Status Reason Start Date Expiration Date Visits Re quested Visits Authorized [id number] Closed 05/22/2022 06/21/2023 1 1 Encounter Details Date Type Department Care Team (Latest Contact Info) Description 05/22/2022 10:44 AM CDT - 05/22/2022 11:59 PM CDT Hospital Encounter [facility] Diag Imaging [address] [place] [address] Chronic bilateral low back pain [...] on file Legal Sex Female 6:41 PM MEAL PACKER Gender Identity Not on file Sexual Orientation Not on file 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 ??Glvi-eb-wczhjikx multilevel degenerative endplate change. ??Xfco-uj-dkoddqkx facet arthropathy mid through lower lumbar spine. [...] D: ??05/22/2022 12:24 PM T: Report ID: [id number] Reading Location: ??[id number] Procedure Note Pepe Adan MD - 05/22/2022 [...] VERTEBRAE: There is preservation of vertebral body height.Fkzs-ny-vwipechc multilevel degenerative endplate change. Jlcc-oa-oizmatjx facetarthropathy mid through lower lumbar spine. This [...] Pepe Adan M.D. MJ T: Report ID: [id number] Reading Location: [place] [address] Valentina Curtis COIN ROLLING MACHINE OPERATOR IMG XR PROCEDURES Final Res ult documented in this encounter Visit Diagnoses Diagnosis Chronic bilateral low back pain with bilateral sciatica documented in this encounter Care Teams Stove Cleaner Relationship Specialty Start Date End Date Keyonna Armstrong PA PCP - General Nurse Practitioner 06/20/18 Gasper Ochoa MD [address] [facility] [place] [address] Consulting Physician Pain Management 08/31/21 documented as of this encounter
--- OUTSIDE RECORDS SUMMARY | 2024-07-11 00:42 | XMS_ITS | Encounter Summary ---
Author Organization [facility] Address [address] [facility] [address] [place] [address] Care Team Providers Care Sales Service Executive Name Role Phone Keyonna Armstrong Primary Care Provider + Encounter Details Date Type Department Care Team (Late st Contact Info) Description 06/02/2021 Telephone [facility] Orthopedics and Sports Medicine [address] [place] [address] [address] [place] [address] Katherine Mueller MA Social History Tobacco Use Types Packs/Day Years Used Date Smoking Tobacco: Never Smokeless Tobacco: Never Alcohol Use Standard Drinks/Week Comments No 0 (1 standard drink = 0.6 oz pur e alcohol) Comments No Sex and Gender Information Value Date Recorded Sex Assigned at Not on file Legal Sex Female 6:41 PM ASSISTANT MANAGER/EMBALMER Gender Identity Not on file Sexual Orientation Not on file 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 Patient instructed to contact office to schedule f/u with [facility] 5-7days after MRI. STANT MANAGER/EMBALMER documented in this encounter Plan of Treatment Not on file documented as of this encounter Visit Diagnoses Not on filedocumented in this encounter Care Teams Sales Service Executive Relationship Specialty Start Date End Date Keyonna Armstrong PA PCP - General Nurse Practitioner 06/20/18 documented as of this encounter
--- OUTSIDE RECORDS SUMMARY | 2024-07-11 00:42 | XMS_ITS | Encounter Summary ---
Author Organization [facility] Address [address] [place] [address] Phone Care Team Providers Care Truck Sales Manager Name Role Phone Keyonna Armstrong Primary Care Provider + Encounter Details Date Type Department Care Team (Late st Contact Info) Description 08/09/2018 Orders Only [facility] [address] [facility] Advanced Medicine 8th [place] [address] [place] [phone] Elli Hernandez MD PhD [address] [place] [address] Social History Tobacco Use Types Packs/Day Years Used Date Smoking Tobacco: Never Smokeless Tobacco: Never Alcohol Use Standard Drinks/Week Comments No 0 (1 standard drink = 0.6 oz pur e alcohol) Comments No Sex and Gender Information Value Date Recorded Sex Assigned at Not on file Legal Sex Female 6:41 PM FLORAL SPECIALIST Gender Identity Not on file Sexual [...] Refill provided on Oxycodone. 20 tablets given AL SPECIALIST documented in this encounter Plan of [...] documented as of this encounter Care Teams Truck Sales Manager Relationship Specialty Start Date End Date Keyonna Armstrong PA PCP - General Nurse Practitioner 06/20/18 documented as of this encounter
--- OUTSIDE RECORDS SUMMARY | 2024-07-11 00:42 | XMS_ITS | Encounter Summary ---
Author Organization [facility] Address [address] [facility] [address] [place] [address] Care Team Providers Care Disciplinary Hearing Officer Name Role Phone Keyonna Armstrong Primary Care Provider + Reason for Referral * Diagnostic Imaging (Routine) - Closed Specialty Diagnoses / Procedures Referred By Contac t Referred To Contact Diagnoses Right shoulder pain, unspecified chronicity Procedures XR Shoulder Right 2 or More Views Pepe Zepeda MD [address] [place] [address] [address] [place] [address] Phone: tel: fax: [address] [phone] Referral ID Status Reason Start Date Expiration Date Visits Re quested Visits Authorized [id number] Closed 05/30/2021 06/29/2022 1 1 E FORMER Reason for Visit * Reason Comments Pain Encounter Details Date Type Department Care Team (Late st Contact Info) Description 05/30/2021 11:00 AM GLOVE FORMER Office Visit [facility] Orthopedics and Sports Medicine [address] [place] [phone] Pepe Zepeda MD [address] [place] [address] [address] [place] [id number] Right shoulder pain, unspecified chronicity (Primary Dx) Social History Tobacco Use Types Packs/Day Years Used Date Smoking Tobacco: Never Smokeless Tobacco: Never Alcohol Use Standard Drinks/Week Comments No 0 (1 standard drink = 0.6 oz pur e alcohol) Comments No Sex and Gender Information Value Date Recorded Sex Assigned at Not on file Legal Sex Female 6:41 PM GLOVE FORMER Gender Identity Not on file Sexual Orientation Not on file documented as of this encounter Last Filed Vital Signs Vital Sign Reading Time Taken Comments Blood Pressure - - Pulse - - Temperature - - Respiratory Rate - - Oxygen Saturation - - Inhaled Oxygen Concentration - - Weight 122.5 kg (270 lb) 05/30/2021 11:05 AM GLOVE FORMER Height 165.1 cm (5' 5) 05/30/2021 11:05 AM GLOVE FORMER Body Mass Index 44.93 05/30/2021 11:05 AM GLOVE FORMER documented in this encounter Progress Notes * [...] 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 3. The patient is right-hand dominant [...] like to refer her to a cervical field marketing specialist for consideration of injections and further evaluation and management as cervical spine evaluation and management is out of my scope of practice. Based on the patient's clinical historyexamination and imaging I do not think the patient is indicated for shoulder surgical intervention from the orthopedic surgery perspective. I personally and independently performed interpretation of a test performed by another provider. E FORMER documented in this encounter Plan of Treatment Not on file documented as of this encounter Results * XR Shoulder Right 2 or More Views (05/30/2021 11:16 AM GLOVE FORMER) Anatomical Region Laterality Modality Upper Extremities, Shoulder Right Comp uted Radiography 06/01/2021 9:16 AM GLOVE FORMER Narrative 06/01/2021 9:17 AM GLOVE FORMER EXAM DESCRIPTION: ?? XR SHOULDER RIGHT 2 [...] D: ??06/01/2021 9:17 AM T: Report ID: [id number] Reading Location: ??[place] [address] Procedure Note Pepe Zepeda MD - 06/01/2021 [...] signed by Pepe Zepeda T: Report ID: [id number] Reading Location: [place] [address] Pepe Zepeda MD IMG XR PROCEDURES Final [...] 3 added in this encounter Care Teams Disciplinary Hearing Officer Relationship Specialty Start Date End Date Keyonna Armstrong PA PCP - General Nurse Practitioner 06/20/18 documented as of this encounter
--- OUTSIDE RECORDS SUMMARY | 2024-07-11 00:42 | XMS_ITS | Encounter Summary ---
Author Organization [facility] Healthcare Address [address] [place] [address] Care Team Providers Care Degreaser Operator Name Role Phone Keyonna Armstrong Primary Care Provider + Encounter Details Date Type Department Care Team (Late st Contact Info) Description 08/07/2018 8:30 AM FILM TECHNICIAN - 08/07/2018 11:30 AM [facility] Surgery [facility] Operating Room [facility] [address] [place] [phone] Elli Hernandez MD PhD [address] [facility] [address] [place], [place] [id number] LAPAROSCOPIC CHOLECYSTECTOMY WITH CHOLANGIOGRAMS Surgery Details Date/Time Status Location OR Service Patient Class Case Cl ass Case Type Trauma Case? 08/07/2018 8:30 AM Posted [facility] CAM OR POD 4 C Minimally Invasive Surgery Outpatient Elective Panel 1 Procedure LRB Anes Op Region Wound Class Comments LAPAROSCOPIC CHOLECYSTECTOMY WITH CHOLANGIOGRAMS N/A General Abdomen Class II - C lean Contaminated Surgeon Surgeon Role Service Panel Elli Hernandez MD PhD Primary Minimally Invasi ve Surgery 1 documented in this encounter Social History Tobacco Use Types Packs/Day Years Used Date Smoking Tobacco: Never Smokeless Tobacco: Never Alcohol Use Standard Drinks/Week Comments No 0 (1 standard drink = 0.6 oz pur e alcohol) Comments No Sex and Gender Information Value Date Recorded Sex Assigned at Not on file Legal Sex Female 6:41 PM FILM TECHNICIAN Gender Identity Not on file Sexual Orientation Not on file documented as of this encounter Last Filed Vital Signs Vital Sign Reading Time Taken Comments Blood Pressure 144/83 08/07/2018 11:30 AM FILM TECHNICIAN Pulse 102 08/07/2018 11:30 AM FILM TECHNICIAN Temperature 36 ??C (96.8 ??F) 08/07/2018 11:20 AM FILM TECHNICIAN Respiratory Rate 25 08/07/2018 11:30 AM FILM TECHNICIAN Oxygen Saturation 93% 08/07/2018 11:30 AM FILM TECHNICIAN Inhaled Oxygen Concentration - - Weight 131.5 kg (290 lb) 07/29/2018 4:00 PM FILM TECHNICIAN Height 165.1 cm (5' 5) 07/29/2018 4:00 PM FILM TECHNICIAN Body Mass Index 48.26 07/29/2018 4:00 PM FILM TECHNICIAN documented in this encounter Medications at Time [...] risk for: Procedure(s): LAPAROSCOPIC CHOLECYSTECTOMY WITH CHOLANGIOGRAMS TECHNICIAN Source Note - Katherine Corey NP - 08/02/2018 11:23 AM FILM TECHNICIAN [facility] Preoperative Evaluation Record Telephone Preoperative Evaluation ([facility]) - TELEPHONE ONLY, NO PHYSICAL EXAM Date: [...] ) - other. Pertinent negatives: CAD ; [place] ; CABG ; valvular heart disease; valve [...] Medication protocol when under care of a ENERGY ASSISTANT Planned anesthesia: General Team communication plan: oral [...] and agree to proceed. All questions answered. TECHNICIAN TECHNICIAN documented in this encounter Miscellaneous Notes * Perioperative Nursing Note - Dariana Vu RN - 08/07/2018 4:[address] Lewis here. PT. States she feels better and wants to go home. She states she is getting her breath and not like before. States pain is fine and tolerable to abdomen. Abdomen lap sites CDI, no drainage noted. Denies nausea. Steady gait noted with movement getting dressed. Dr. Lewis with ok to DCto home. TECHNICIAN * Perioperative Nursing Note - Dariana Vu RN - 08/07/2018 3:51 PM FILM TECHNICIAN IV metoprolol given as ordered. Pt in stretcher with telemetry on ST. Still states hard to get my breath. Dr. Lewis aware and here to assess. HOB 30, o2sat RA 100%. TECHNICIAN * Perioperative Nursing Note - Dariana Vu RN - 08/07/2018 3:12 PM FILM TECHNICIAN Pt. C/o SOB and pain better. BS [...] from saline lock for going to bathroom. TECHNICIAN * Perioperative Nursing Note - Dariana Vu RN - 08/07/2018 1:58 PM FILM TECHNICIAN Denies nausea. Po pain med ordered per Dr. Lewis, waiting for to be in pyxis as pt more awake. Pain is to abdomen and back.Abdopmen lap sites x 5 cdi , abdomen x 4 and umbilicus x 1. C and DB encouraged. Taking po ice chips. TECHNICIAN * Op Note - Elli Hernandez MD [...] present and participated in the entire procedure. TECHNICIAN * Pre-Procedure Instructions - Katherine Corey NP - 08/02/2018 11:18 AM CST [facility] CPAP Clinic Location: [facility] The night before your surgery: * Do [...] your surgery: Vitamin E, Fish Oil (L[place], [place] 3), Herbal medicines, Diet Pills ?? If [...] bowel prep or special diet before surgery TECHNICIAN * Pre-Procedure Instructions - Soo Palmer RN - 07/29/2018 4:08 PM FILM TECHNICIAN PRE-SURGICAL INSTRUCTIONS ?? Surgery location provided to [...] 2 days of your surgery, please call [phone] and ask for your surgeon's office Dr. Hernandez TECHNICIAN documented in this encounter Plan of Treatment Not on file documented as of this encounter Procedures Procedure Name Priority Date/Time Associated Diagnosis Comments FL FLUOROSCOPY < 1 HOUR IP Routine 08/07/2018 10:15 AM FILM TECHNICIAN SURGICAL PATHOLOGY Routine 08/07/2018 9: 51 AM FILM TECHNICIAN Cholecystitis LAPAROSCOPIC CHOLECYSTECTOMY WITH CHOLANGIOGRAMS 08/07/2018 8:25 AM FILM TECHNICIAN Cholecystitis POCT GLUCOSE DEVICE Routine Gen Lab 08/07/2018 8 :05 AM FILM TECHNICIAN POCT HCG, URINE Routine 08/07/2018 7:52 AM FILM TECHNICIAN documented in this encounter Results * FL Fluoroscopy < 1 Hour (08/07/2018 10:15 AM FILM TECHNICIAN) Narrative RAD_PACS_[facility] - 08/07/2018 10:39 AM FILM TECHNICIAN The images from this study are not interpreted by Radiology. ??Please refer to the physician's procedure / OR operative note. us Elli Hernandez MD PhD IMG FLUOROSCOPY PROCEDURE S Final Result RAD_PACS_[facility] * Surgical pathology (08/07/2018 9:51 AM FILM TECHNICIAN) Tissue (Gallbladder) 08/07/2018 9:51 AM FILM TECHNICIAN Narrative PATHOLOGY [facility] - 08/12/2018 4:48 PM FILM TECHNICIAN EPIC results best viewed via link to PDF [facility] Karlie Marlow [facility] Surgical Pathology [facility] [place] [address] SURGICAL PATHOLOGY REPORT FINAL Patient Name: ?? VERONICA EVANGELISTA Gender: ??F : ??1970 (Age: 47) Address: ??[address] [place], [place] ??[address] Hospital #: ??[id number] Taken:08/07/2018 Received:08/07/2018 Reported: 08/12/2018 Patient Type: [facility] SDS ?? Service: Surgery Location: [facility] Physician(s): ??Elli Hernandez M.D. Diagnosis: Gallbladder, [...] clip but is otherwise patent. ??Labeled A1- community health representative section of gallbladder body and fundus and shave of cystic duct remnant. ??Jar 2. rw/08/08/2018 10:38 Mauricio Oliveira MS, PA([facility]) By this signature, I attest that the above diagnosis is based upon my personal examination of the slides(and/or other material). The performance characteristics of some immunohistochemical stains, fluorescence in-situ hybridization tests and immunophenotyping by flow cytometry cited in this report (if any) were determined by the Surgical Pathology Department at [facility] as part of an ongoing quality assurance assistant program and in compliance with federally mandated [...] by the Surgical Pathology Department of [facility]. ??It has not been cleared or approved by the U. S. Food and Drug Administration. IMAGES AND SCANNED DOCUMENTS, IF INCLUDED, ONLY VIEWABLE IN PDF VERSION OF REPORT Elli Hernandez MD PhD LAB PATHOLOGY ORDERABLES Final Result Performing Organization Address City/[facility]/ZIP Co de Phone Number PATHOLOGY [facility] 3rd Floor [place], [place] [phone] * POCT glucose (08/07/2018 8:05 AM FILM TECHNICIAN) Pathologist [facility] Glucose, POC 94 70 - 199 mg/dL [facility] Blood specimen (specimen) 08/07/2018 8:05 AM FILM TECHNICIAN 08/07/2018 8:05 AM FILM TECHNICIAN Narrative [facility] - 08/07/2018 8:06 AM FILM TECHNICIAN Elli Hernandez MD PhD LAB POCT ORDERABLES - DEV ICE Final Result [facility] Department [place] [address] * POCT hCG, urine (08/07/2018 7:52 AM FILM TECHNICIAN) HCG, ur, POC Negative Lot Number [id number] QC Backgroud Clear Acceptable QC Control Line Acceptable Urine 08/07/2018 7:52 AM FILM TECHNICIAN Celso Klein MD POINT OF CARE TEST [...] PO., Indications: PainIndications:Pain Given 08/07/2018 4:12 PM FILM TECHNICIAN 1,000 mg bupivacaine (MARCAINE) 0.5 % (5 mg/mL) preservative free injection As needed, Starting on Sun08/07/18 at 0915, Intra-Op Given 08/07/2018 9:15 AM FILM TECHNICIAN 20 mL fentaNYL (SUBLIMAZE) preservative free injection 50 mcg 50 mcg, intravenous, Once as needed, uncontrolled pain on PACU admission, Starting on Sun08/07/18 at 1118, For 1 dose, Phase I, Then proceed to PACU 1st line analgesic., Indications: PainIndications:Pain Given 08/07/2018 11:42 AM FILM TECHNICIAN 50 mcg haloperidol (HALDOL) 5 mg/mL injection - ADS Override Pull Starting on Sun08/07/18 at 1155, For 1 dose, IVAN DENG: cabinet override haloperidol (HALDOL) injection 1 mg 1 mg, intravenous, Administer over 5 Minutes, Once, On Sun08/07/18 at 1230, For 1 dose Given 08/07/2018 11:59 AM FILM TECHNICIAN 1 mg HYDROmorphone (DILAUDID) injection 0.2 mg 0.2 mg, intravenous, Administer over 2 Minutes, Every 10 min PRN, 1st line for pain, Starting on Sun08/07/18 at 1118, Phase I, Notify Anesthesiologist if total PACU dose reaches 2 mg and pain score 5/10 or more., Indications: PainIndications:Pain Given 08/07/2018 12:43 PM FILM TECHNICIAN 0.2 mg Given 08/07/2018 12:24 PM FILM TECHNICIAN 0.2 mg Given 08/07/2018 11:50 AM FILM TECHNICIAN 0.2 mg iothalamate meglumine (CONRAY) 60 % injection As needed, Starting on Sun08/07/18 at 0914, Intra-Op Given 08/07/2018 9:14 AM FILM TECHNICIAN 50 mL Lactated Ringer's (LR) infusion 30 mL/hr, intravenous, Continuous, Starting on Sun08/07/18 at 0830, Pre-Op New Bag 08/07/2018 3:41 PM FILM TECHNICIAN 30 mL/hr 30 mL/h r Lactated Ringer's (LR) infusion 30 mL/hr, intravenous, Continuous, Starting on Sun08/07/18 at 0830, Pre-Op New Bag 08/07/2018 12:38 PM FILM TECHNICIAN 30 mL/hr 30 mL/ hr New Bag 08/07/2018 8:25 AM FILM TECHNICIAN New Bag 08/07/2018 8:10 AM FILM TECHNICIAN 30 mL/hr 30 mL/hr Le ft Antecubital [...] followed by drowsiness. Given 08/07/2018 11:30 AM FILM TECHNICIAN 10 mg metoprolol (LOPRESSOR) injection 2.5 mg 2.5 mg, intravenous, Administer over 1 Minutes, Every 15 min PRN, other, prn HR>110, hold for SBP<90, Starting on Sun08/07/18 at 1512, For 2 doses Given 08/07/2018 4:00 PM FILM TECHNICIAN 2.5 mg Given 08/07/2018 3:44 PM FILM TECHNICIAN 2.5 mg ondansetron (ZOFRAN) injection 4 mg 4 mg, intravenous, Administer over 2 Minutes, Once, On Sun08/07/18 at 0830, For 1 dose, Pre-Op, Indications: Prevention of Post-Operative Nausea and VomitingIndications:Pre vention of Post-Operative Nausea and Vomiting Given 08/07/2018 8:10 AM FILM TECHNICIAN 4 mg oxyCODONE (ROXICODONE) tablet 5 mg 5 mg, oral, Once, On Sun08/07/18 at 1430, For 1 dose, Indications: PainIndications:Pain Given 08/07/2018 2:05 PM FILM TECHNICIAN 5 mg prochlorperazine (COMPAZINE) injection 10 mg 10 mg, intravenous, Administer over 2 Minutes, Once as needed, nausea, vomiting, Starting on Sun08/07/18 at 1227, For 1 dose, Phase I, If nausea/vomiting not relieved by ondansetron within 30 minutes or if ondansetron has been given within the last 6 hours. Given 08/07/2018 12:30 PM FILM TECHNICIAN 10 mg scopolamine patch 72 hour 1 patch 1 patch, transdermal, Administer over 72 Hours, Once, On Sun08/07/18 at 0830, For 1 dose, Pre-Op, Indications: Prevention of Post-Operative Nausea and VomitingIndications:Pre vention of Post-Operative Nausea and Vomiting Medication Applied 08/07/2018 8:01 AM FILM TECHNICIAN 1 patch Behind Right Ear sodium chloride 0.9 % irrigation As needed, Starting on Sun08/07/18 at 0752, Intra-Op Given 08/07/2018 7:52 AM FILM TECHNICIAN 1,000 mL sodium chloride 0.9 % irrigation As needed, Starting on Sun08/07/18 at 0916, Intra-Op Given 08/07/2018 9:16 AM FILM TECHNICIAN 1,000 mL sterile water irrigation As needed, Starting on Sun08/07/18 at 0918, Intra-Op Given 08/07/2018 9:18 AM FILM TECHNICIAN 1,000 mL documented in this encounter Discontinued [...] Recently Administered Medications Times are shown in FILM TECHNICIAN. Scheduled Medication Order 08/05/2018 08/06/2018 08/07/2018 acetaminophen [...] Pain 1405 (Given - Provid er: Dariana Vu RN) scopolamine patch 72 hour 1 patch [...] 08/07/2018 documented in this encounter Care Teams Degreaser Operator Relationship Specialty Start Date End Date Keyonna Armstrong PA PCP - General Nurse Practitioner 06/20/18 documented as of this encounter
--- OUTSIDE RECORDS SUMMARY | 2024-07-11 00:42 | XMS_ITS | Encounter Summary ---
Author Organization [facility] Address [address] [place] [address] Care Team Providers Care Agility Instructor Name Role Phone Keyonna Armstrong Primary Care Provider + Encounter Details Date Type Department Care Team (Late st Contact Info) Description 07/21/2021 Telephone [facility] Orthopedics and Sports Medicine [address] [place] [address] [address] [place] [address] [place] [address] [place] [address] [address] [place] [address] Social History Tobacco Use Types Packs/Day Years Used Date Smoking Tobacco: Never Smokeless Tobacco: Never Alcohol Use Standard Drinks/Week Comments No 0 (1 standard drink = 0.6 oz pur e alcohol) Comments No Sex and Gender Information Value Date Recorded Sex Assigned at Not on file Legal Sex Female 6:41 PM MEDICAL BILLING AND CODING INSTRUCTOR Gender Identity Not on file Sexual Orientation Not on file 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 I left a message with Veronica to return my call at the orthopedic clinic. CAL BILLING AND CODING INSTRUCTOR documented in this encounter Plan of Treatment Not on file documented as of this encounter Visit Diagnoses Not on filedocumented in this encounter Care Teams Agility Instructor Relationship Specialty Start Date End Date Keyonna Armstrong PA PCP - General Nurse Practitioner 06/20/18 documented as of this encounter
--- OUTSIDE RECORDS SUMMARY | 2024-07-11 00:42 | XMS_ITS | Encounter Summary ---
Author Organization [facility] Healthcare Address [address] [place] [address] Care Team Providers Care Denture Contour Wire Specialist Name Role Phone Keyonna Armstrong Primary Care Provider + Reason for Referral * Diagnostic Imaging (Routine) - Closed Specialty Diagnoses / Procedures Referred By Contac t Referred To Contact Diagnoses Neck pain Procedures XR Spine Cervical W Flexion And Extension 6 or More Views Valentina Curtis NP [address] [place] [address] DR KNO[address] [place] [address] Phone: tel: fax: [address] [phone] Referral ID Status Reason Start Date Expiration Date Visits Re quested Visits Authorized [id number] Closed 05/30/2021 06/29/2022 1 1 SPECIALIST Reason for Visit * Diagnostic Imaging (Routine) - Closed Specialty Diagnoses / Procedures Referred By Contac t Referred To Contact Diagnoses Neck pain Procedures XR Spine Cervical W Flexion And Extension 6 or More Views Valentina Curtis NP [address] [place] [address] DR KNOX [address] [place] [address] Phone: tel: fax: [address] [phone] Referral ID Status Reason Start Date Expiration Date Visits Re quested Visits Authorized [id number] Closed 05/30/2021 06/29/2022 1 1 Encounter Details Date Type Department Care Team (Latest Contact Info) Description 06/02/2021 11:15 AM GAS SPECIALIST - 06/02/2021 11:59 PM GAS SPECIALIST Hospital Encounter [facility] Di[facility] Imaging [address] [place] [address] Neck pain Discharge Disposition: Discharge to home or self care Social History Tobacco Use Types Packs/Day Years Used Date Smoking Tobacco: Never Smokeless Tobacco: Never Alcohol Use Standard Drinks/Week Comments No 0 (1 standard drink = 0.6 oz pur e alcohol) Comments No Sex and Gender Information Value Date Recorded Sex Assigned at Not on file Legal Sex Female 6:41 PM GAS SPECIALIST Gender Identity Not on file Sexual Orientation Not on file 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 Not on file Not [...] Read Routine (OP Routine) 06/02/2021 11:23 AM GAS SPECIALIST Neck pain documented in this encounter Results * XR Spine Cervical W Flexion And Extension 6 or More Views (06/02/2021 11:23 AM GAS SPECIALIST) Anatomical Region Laterality Modality Spine N/A Computed Radiogr aphy 06/02/2021 12:1 6 PM GAS SPECIALIST Narrative 06/02/2021 3:30 PM GAS SPECIALIST EXAM DESCRIPTION: ?XR SPINE CERVICAL W FLEXION [...] PM T: ??06/02/2021 1:52 PM Report ID: [id number] Reading Location: ??[id number] Procedure Note Sher Giron MD - 06/02/2021 EXAM DESCRIPTION: XR SPINE CERVICAL W FLEXION AND EXTENSION 6 OR MOREVIEWS REASON FOR STUDY: Right neck pain for 3 months. TECHNIQUE: AP, lateral, odontoid, flexion, extension, right oblique andleft oblique radiographic views acquired of the cervical spine. COMPARISON: None available FINDINGS: ALIGNMENT: There is trace anterolisthesis of C3 with respect to V5publbrh evidence of instability on flexion or extension [...] Electronically signed by Sher DIETRICH Report ID: [id number] Reading Location: [place] [address] Valentina Curtis FOAM GUN OPERATOR IMG XR PROCEDURES Final Res ult documented in this encounter Visit Diagnoses Diagnosis Neck pain Cervicalgia documented in this encounter Care Teams Denture Contour Wire Specialist Relationship Specialty Start Date End Date Keyonna Armstrong PA PCP - General Nurse Practitioner 06/20/18 documented as of this encounter
--- OUTSIDE RECORDS SUMMARY | 2024-07-11 00:42 | XMS_ITS | Encounter Summary ---
Author Organization [facility] Healthcare Address [address] [place] [address] Care Team Providers Care Humid System Operator Name Role Phone Keyonna Armstrong Primary Care Provider + Reason for Visit * Neurology (Routine) - Closed Specialty Diagnoses / Procedures Referred By Lee saunders Referred To Contact Diagnoses Right cervical radiculopathy Numbness and tingling of right upper extremity Procedures EMG/NCV - Valentina Curtis, FLAG SIGNALER [address] [place] [address] Phone: tel: fax: [address] [phone] Referral ID Status Reason Start Date Expiration Date Visits Re quested Visits Authorized [id number] Closed 06/02/2021 07/02/2022 1 1 Encounter Details Date Type Department Care Team (Late st Contact Info) Description 06/21/2021 1:30 PM LODGING FACILITIES ATTENDANT Therapy [facility] OP Physical Therapy [address] [place] [id number] Right cervical radiculopathy; Numbness and tingling of right upper extremity Social History Tobacco Use Types Packs/Day Years Used Date Smoking Tobacco: Never Smokeless Tobacco: Never Alcohol Use Standard Drinks/Week Comments No 0 (1 standard drink = 0.6 oz pur e alcohol) Comments No Sex and Gender Information Value Date Recorded Sex Assigned at Not on file Legal Sex Female 6:41 PM LODGING FACILITIES ATTENDANT Gender Identity Not on file Sexual Orientation Not on file 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 ING FACILITIES ATTENDANT documented in this encounter Plan of Treatment Not on file documented as of this encounter Visit Diagnoses Diagnosis Right cervical radiculopathy Numbness and tingling of right upper extremity documented in this encounter Orders Imaging Orders Without Results Count Last Order ed Date First Ordered Date EMG/NCV 1 06/21/2021 documented in this encounter Care Teams Humid System Operator Relationship Specialty Start Date End Date Keyonna Armstrong PA PCP - General Nurse Practitioner 06/20/18 documented as of this encounter
--- OUTSIDE RECORDS SUMMARY | 2024-07-11 00:42 | XMS_ITS | Encounter Summary ---
Author Organization [facility] Address [address] [place] [address] Phone Care Team Providers Care Furrier Shop Supervisor Name Role Phone Keyonna Armstrong Primary Care Provider + Encounter Details Date Type Department Care Team (Latest Contact Info) Description 09/05/2018 8:00 AM ALLIANCE DIRECTOR Office Visit [facility] Surgery [facility] Medical Office Building [address] [place] [address] Elli Hernandez MD PhD [address] [place] [address] Cholecystitis (Primary Dx) Social History Tobacco Use Types Packs/Day Years Used Date Smoking Tobacco: Never Smokeless Tobacco: Never Alcohol Use Standard Drinks/Week Comments No 0 (1 standard drink = 0.6 oz pur e alcohol) Comments No Sex and Gender Information Value Date Recorded Sex Assigned at Not on file Legal Sex Female 6:41 PM ALLIANCE DIRECTOR Gender Identity Not on file Sexual Orientation Not on file documented as of this encounter Last Filed Vital Signs Vital Sign Reading Time Taken Comments Blood Pressure 151/96 09/05/2018 7:56 AM ALLIANCE DIRECTOR Pulse 108 09/05/2018 7:56 AM ALLIANCE DIRECTOR Temperature 36.8 ??C (98.2 ??F) 09/05/2018 7:56 AM CS T Respiratory Rate - - Oxygen Saturation - - Inhaled Oxygen Concentration - - Weight 128.3 kg (282 lb 12.8 oz) 09/05/2018 7:56 AM ALLIANCE DIRECTOR Height 165.1 cm (5' 5) 09/05/2018 7:56 AM ALLIANCE DIRECTOR Body Mass Index 47.06 09/05/2018 7:56 AM ALLIANCE DIRECTOR documented in this encounter Progress Notes * Elli Hernandez MD PhD - 09/05/2018 8:00 AM CST Images from the original note were not included. [facility] Minimally Invasive Surgery Established Patient REASON FOR [...] questions or concerns. Elli Hernandez MD PhD ANCE DIRECTOR documented in this encounter Plan of [...] 05/28/2023 added in this encounter Care Teams Furrier Shop Supervisor Relationship Specialty Start Date End Date Keyonna Armstrong PA PCP - General Nurse Practitioner 06/20/18 documented as of this encounter
--- OUTSIDE RECORDS SUMMARY | 2024-07-11 00:42 | XMS_ITS | Encounter Summary ---
Author Organization [facility] Healthcare Address [address] [place] [address] Care Team Providers Care Wheel Braider Name Role Phone Keyonna Armstrong Primary Care Provider + Encounter Details Date Type Department Care Team (Latest Contact Info) Description 05/09/2021 - 05/09/2021 12:04 AM CDT Hospital Encounter [facility] [employer] [address] [place] [address] Discharge Disposition: Discharge to home or self care Social History Tobacco Use Types Packs/Day Years Used Date Smoking Tobacco: Never Smokeless Tobacco: Never Alcohol Use Standard Drinks/Week Comments No 0 (1 standard drink = 0.6 oz pur e alcohol) Comments No Sex and Gender Information Value Date Recorded Sex Assigned at Not on file Legal Sex Female 6:41 PM PRIVATE MORTGAGE BANKER SAFE Gender Identity Not on file Sexual Orientation [...] Narrative MIGUEL A_SANTIAGO_MHB_MHE - 05/30/2021 7:48 AM PRIVATE MORTGAGE BANKER SAFE This order has been auto-finalized and does not contain a result. us Provider Transcribed Order IMG XR PROCEDURES Fin al Result RAD_CLARIO_MHB_MHE documented in this encounter Visit Diagnoses Not on filedocumented in this encounter Care Teams Wheel Braider Relationship Specialty Start Date End Date Keyonna Armstrong PA PCP - General Nurse Practitioner 06/20/18 documented as of this encounter
--- OUTSIDE RECORDS SUMMARY | 2024-07-11 00:42 | XMS_ITS | Encounter Summary ---
Author Organization [facility] Address [address] [place] [address] Care Team Providers Care Baker Biscuit Name Role Phone Keyonna Armstrong Primary Care [...] of cervical region Valentina Curtis NP [address] [facility] [address] [place] [address] Phone: tel: fax: Flor Kincaid MD [facility]0 [facility] [address] [place] [address] [place] [address] Phone: tel: fax: Referral ID Status Reason Start Date Expiration Date V isits Requested Visits Authorized [id number] Closed Specialty Services Required 08/01/2021 08/31/2022 1 1 Question Answer Please select the performing region: [facility] [[id number]] To provider: FLOR KINCAID [[id number]] # of visits: 1 Comments Evaluate and treat F LEG DERRICK OPERATOR Reason for Visit * Reason Comments Shoulder Pain * Consultation (Routine) - Closed Specialty Diagnoses / Procedures Referred By Contac t Referred To Contact Pain Management Diagnoses Right cervical radiculopathy Protrusion of cervical intervertebral disc 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 Spondylolisthesis of cervical region Valentina Curtis NP [facility]0 [facility] [address] [place] [address] Phone: tel: fax: Flor Kincaid MD [address] [place] [address] [address] [facility] [place] [address] Phone: tel: fax: Referral ID Status Reason Start Date Expiration Date V isits Requested Visits Authorized [id number] Closed Specialty Services Required 08/01/2021 08/31/2022 1 1 Encounter Details Date Type Department Care Team (Latest Contact Info) Description 08/23/2021 10:22 AM STIFF LEG DERRICK OPERATOR - 08/23/2021 11:59 PM STIFF LEG DERRICK OPERATOR Hospital Encounter [facility] Pain [facility] [address] [place] [address] [address] [place] [id number] Flor Kincaid MD [address] [place] [address] [address] [facility] [place] [address] Facet arthropathy, cervical (Primary Dx); Right cervical [...] on file Legal Sex Female 6:41 PM STIFF LEG DERRICK OPERATOR Gender Identity Not on file Sexual Orientation Not on file 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 Not on file Not on leeann e documented as of this encounter Last Filed Vital Signs Vital Sign Reading Time Taken Comments Blood Pressure 136/80 08/23/2021 11:03 AM STIFF LEG DERRICK OPERATOR Pulse 77 08/23/2021 11:03 AM STIFF LEG DERRICK OPERATOR Temperature 36.2 ??C (97.2 ??F) 08/23/2021 1 1:03 AM STIFF LEG DERRICK OPERATOR Respiratory Rate 18 08/23/2021 11:0 3 AM STIFF LEG DERRICK OPERATOR Oxygen Saturation 97% 08/23/2021 11: 03 AM STIFF LEG DERRICK OPERATOR Inhaled Oxygen Concentration - - Weight 128.3 kg (282 lb 14.4 oz) 2021 11:03 AM STIFF LEG DERRICK OPERATOR Height 165.1 cm (5' 5) 08/23/2021 11:0 3 AM STIFF LEG DERRICK OPERATOR Body Mass Index 47.08 08/23/2021 11:03 AM STIFF LEG DERRICK OPERATOR documented in this encounter Discharge Instructions * Patient Instructions* Nenita Dean RN - 08/23/2021 10:45 AM STIFF LEG DERRICK OPERATOR Shower with antibacterial soap the day of the procedure. Have a motorcycle delivery driver for your appointment. Take your medications as scheduled. You may eat a light meal. F LEG DERRICK OPERATOR documented in this encounter Medications at [...] pain. Patient agreed with the treatment plan. F LEG DERRICK OPERATOR documented in this encounter Plan of [...] Cervicalgia documented in this encounter Care Teams Baker Biscuit Relationship Specialty Start Date End Date Keyonna Armstrong PA PCP - General Nurse Practitioner 06/20/18 documented as of this encounter
--- OUTSIDE RECORDS SUMMARY | 2024-07-11 00:42 | XMS_ITS | Encounter Summary ---
Author Organization [facility] Medical Group Address [address] [address] Care Team Providers Care Childcare Worker Name Role Phone Keyonna Armstrong Primary [...] Spondylolisthesis of cervical region Valentina Curtis NP [facility]0 [facility] [address] [place] [address] Phone: tel: fax: Flor Kincaid MD [address] [place] [address] [address] [facility] [address] Phone: tel: fax: Referral ID Status Reason Start Date Expiration Date V isits Requested Visits Authorized [id number] Closed Specialty Services Required 08/01/2021 08/31/2022 1 1 Question Answer Please select the performing region: [facility] [172] To provider: FLOR KINCAID [[id number]] # of visits: 1 Comments Evaluate and treat FILTER TANK TENDER HEAD Reason for Visit * Reason Onset Date Comments Referral 08/01/2021 Encounter Details Date Type Department Care Team (Late st Contact Info) Description 08/01/2021 Telephone [facility] Medical Group Orthopedics and Sports Medicine [address] [facility] [address] [place] [phone] Valentina Curtis J2EE DEVELOPER [address] [facility] [address] [place], [place] [id number] Referral Social History Tobacco Use Types Packs/Day [...] on file Legal Sex Female 6:41 PM CHAR FILTER TANK TENDER HEAD Gender Identity Not on file Sexual Orientation Not on file 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 Hilario so was just seeing if you can followup with them; would like a call back to see what is going on FILTER TANK TENDER HEAD documented in this encounter Plan of Treatment [...] region documented in this encounter Care Teams Childcare Worker Relationship Specialty Start Date End Date Keyonna Armstrong PA PCP - General Nurse Practitioner 06/20/18 Flor Kincaid MD [address] [facility] [address] [facility] [address] Consulting Physician Pain Management 08/31/21 Flor Kincaid MD [address] [facility] [address] [facility] [place] [address] Consulting Physician Pain Management 08/31/21 08/31/21 documented as of this encounter
--- OUTSIDE RECORDS SUMMARY | 2024-07-11 00:42 | XMS_ITS | Encounter Summary ---
Author Organization [facility] Medical Group Address [address] [facility] [address] [place] [address] Care Team Providers Care Electronic Assembly Name Role Phone Keyonna Armstrong Primary Care Provider + Gasper Ochoa MD Unavailable Gasper Ochoa MD Unavailable Encounter Details Date Type Department Care Team (Late st Contact Info) Description 06/22/2021 Telephone [facility] Medical [facility] Orthopedics and Sports Medicine [address] [facility] [address] [place] [address] Valentina Curtis NP [address] [facility] [address] [place] [address] Social History Tobacco Use Types Packs/Day Years [...] on file Legal Sex Female 6:41 PM LIQUOR MERCHANT Gender Identity Not on file Sexual Orientation Not on file 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 Not on leeann e documented as of this encounter Miscellaneous Notes * Telephone Encounter - Dodie Garcia - 10/04/2021 3:14 PM CDT Error documented in this encounter Plan of Treatment Not on file documented as of this encounter Visit Diagnoses Not on filedocumented in this encounter Care Teams Electronic Assembly Relationship Specialty Start Date End Date Keyonna Armstrong PA PCP - General Nurse Practitioner 06/20/18 Gasper Ochoa MD [address] [facility] [address] [facility] [place] [address] Consulting Physician Pain Management 08/31/21 Gasper Ochoa MD [address] [facility] [address] [facility] [place] [address] Consulting Physician Pain Management 08/31/21 08/31/21 documented as of this encounter
--- OUTSIDE RECORDS SUMMARY | 2024-07-11 00:42 | XMS_ITS | Encounter Summary ---
Author Organization [facility] Medical Group Address [address] [facility] [address] [place] [address] Care Team Providers Care Systems Manager Name Role Phone Keyonna Armstrong Primary Care Provider + Encounter Details Date Type Department Care Team (Late st Contact Info) Description 07/25/2021 Telephone [facility] Medical Group Orthopedics and Sports Medicine [address] [place] [address] [address] [place] [address] Katherine Mueller MA Social History Tobacco Use Types Packs/Day Years Used Date Smoking Tobacco: Never Smokeless Tobacco: Never Alcohol Use Standard Drinks/Week Comments No 0 (1 standard drink = 0.6 oz pur e alcohol) Comments No Sex and Gender Information Value Date Recorded Sex Assigned at Not on file Legal Sex Female 6:41 PM PIPE FITTINGS MOLDER Gender Identity Not on file Sexual Orientation Not on file 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 Not on file Not on leeann e documented as of this encounter Miscellaneous Notes * Telephone Encounter - Katherine Mueller MA - 07/25/2021 9:38 AM CST [facility] called patient with MRI CSP results and is referring patient to PM to see Dr Ochoa for disc protrusion and right cervical radiculopathy FITTINGS MOLDER documented in this encounter Plan of Treatment Not on file documented as of this encounter Visit Diagnoses Diagnosis Right cervical radiculopathy- Primary Protrusion of cervical intervertebral disc 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
--- OUTSIDE RECORDS SUMMARY | 2024-07-11 00:42 | XMS_ITS | Encounter Summary ---
Author Organization [facility] Address [address] [place] [address] Phone Care Team Providers Care Wastewater Plant Operator Name Role Phone Keyonna Armstrong Primary Care Provider + Encounter Details Date Type Department Care Team (Late st Contact Info) Description 08/20/2018 Orders Only [facility] Surgery [address] [facility] Advanced Medicine 8th [place] [address] [place] [address] Adri Camilo RN Social History Tobacco Use Types Packs/Day Years Used Date Smoking Tobacco: Never Smokeless Tobacco: Never Alcohol Use Standard Drinks/Week Comments No 0 (1 standard drink = 0.6 oz pur e alcohol) Comments No Sex and Gender Information Value Date Recorded Sex Assigned at Not on file Legal Sex Female 6:41 PM SECOND CRUSHER Gender Identity Not on file Sexual Orientation [...] on filedocumented in this encounter Care Teams Wastewater Plant Operator Relationship Specialty Start Date End Date Keyonna Armstrong PA PCP - General Nurse Practitioner 06/20/18 documented as of this encounter
--- OUTSIDE RECORDS SUMMARY | 2024-07-11 00:42 | XMS_ITS | Encounter Summary ---
Author Organization [facility] Medical Group Address [address] [facility] [address] [place] [address] Care Team Providers Care Event Specialist Name Role Phone Keyonna Armstrong Primary Care Provider + Encounter Details Date Type Department Care Team (Late st Contact Info) Description 06/22/2021 Telephone [facility] Orthopedics and Sports Medicine [address] [place] [address] [place] [phone] Katherine Mueller MA Social History Tobacco Use Types Packs/Day Years Used Date Smoking Tobacco: Never Smokeless Tobacco: Never Alcohol Use Standard Drinks/Week Comments No 0 (1 standard drink = 0.6 oz pur e alcohol) Comments No Sex and Gender Information Value Date Recorded Sex Assigned at Not on file Legal Sex Female 6:41 PM ODD JOB LABORER Gender Identity Not on file Sexual Orientation Not on file 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
--- OUTSIDE RECORDS SUMMARY | 2024-07-11 00:42 | XMS_ITS | Encounter Summary ---
Author Organization [facility] Healthcare Address [address] [place] [address] Care Team Providers Care Lye Boiler Name Role Phone Keyonna Armstrong Primary Care Provider + Reason for Referral * MRI/CAT/PET Scan (Routine) - Closed Specialty Diagnoses / Procedures Referred By Contac t Referred To Contact Radiology Diagnoses Right cervical radiculopathy Procedures MRI Cervical Spine WO Contrast Valentina Curtis NP [facility]0 [facility] [address] [place] [address] Phone: tel: fax: [address] [phone] Referral ID Status Reason Start Date Expiration Date Visits Re quested Visits Authorized [id number] Closed 06/02/2021 07/02/2022 1 1 [place] SELLING SPECIALIST Reason for Visit * MRI/CAT/PET Scan (Routine) - Closed Specialty Diagnoses / Procedures Referred By Contac t Referred To Contact Radiology Diagnoses Right cervical radiculopathy Procedures MRI Cervical Spine WO Contrast Valentina Curtis NP [address] [place] [address] [address] [place] [address] Phone: tel: fax: [address] [phone] Referral ID Status Reason Start Date Expiration Date Visits Re quested Visits Authorized [id number] Closed 06/02/2021 07/02/2022 1 1 Encounter Details Date Type Department Care Team (Latest Contact Info) Description 07/21/2021 10:50 AM RETAIL SELLING SPECIALIST - 07/21/2021 11:59 PM RETAIL SELLING SPECIALIST Hospital Encounter [facility] [address] [place] [address] Right cervical radiculopathy Discharge Disposition: Discharge to home or self care Social History Tobacco Use Types Packs/Day Years Used Date Smoking Tobacco: Never Smokeless Tobacco: Never Alcohol Use Standard Drinks/Week Comments No 0 (1 standard drink = 0.6 oz pur e alcohol) Comments No Sex and Gender Information Value Date Recorded Sex Assigned at Not on file Legal Sex Female 6:41 PM RETAIL SELLING SPECIALIST Gender Identity Not on file Sexual Orientation Not on file 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 MRI CERVICAL SPINE WO [...] can be obtained as clinically indicated. ??Multilevel vskw-ex-stvpikuf endplate degenerative changes with marginal spur formation. [...] indents the ventral cord. ??Thickened ligamentum flavum. ??Xyvw-ud-ulpjgoow spinal canal stenosis. ??Uncovertebral spurring and facet arthropathy with mild right and ghbc-of-mjkjzspj left neural foraminal narrowing. C7-T1: Anterolisthesis of C7 on T1 with unroofing of the disc. ??No significant spinal canal or neural foraminal narrowing. UPPER THORACIC: ?? Incompletely imaged. No high-grade spinal canal stenosis. IMPRESSION: ?? 1. ?? Multilevel vail-yx-xhoxkkyo cervical spondylotic changes as described. ?? Spinal canal narrowing is most noticeable at C5-C6 and C6-C7. 2. ?? Varying degrees of bilateral neural foraminal stenosis and additional findings as discussed above. THIS IS AN ELECTRONICALLY VERIFIED FINAL REPORT 07/21/2021 1:53 PM - Electronically signed by ??Major Ruano D.O. AP: JAMIE D: ??07/21/2021 1:53 PM T: ??07/21/2021 1:53 PM Report ID: [id number] Reading Location: ??[id number] Procedure Note Major Ruano DO - 07/21/2021 [...] can be obtained as clinically indicated. Multilevel yxuq-zt-twkbsjss endplate degenerative changes with marginal spur formation. [...] complex indents the ventral cord.Thickened ligamentum flavum. Mvsu-uv-lraayhjz spinal canal stenosis. Uncovertebral spurring and facet arthropathy with mild right and yhfc-of-hakyvusc left neural foraminal narrowing. C7-T1: Anterolisthesis of C7 on T1 with unroofing of the disc. Nosignificant spinal canal or neural foraminal narrowing. UPPER THORACIC: Incompletely imaged. No high-grade spinal canalstenosis. IMPRESSION: 1. Multilevel irmk-ok-gjzgggwc cervical spondylotic changes asdescribed. Spinal canal narrowing is most noticeable at C5-C6 and C6-C7. 2. Varying degrees of bilateral neural foraminal stenosis and additional findings as discussed above. THIS IS AN ELECTRONICALLY VERIFIED FINAL REPORT 07/21/2021 1:53 PM - Electronically signed by Major Ruano D.O. AP: JAMIE Report ID: [id number] Reading Location: [place] [address] Valentina Curtis HEARING AID REPAIR TECHNICIAN IMG MRI PROCEDURES Final Re sult documented in this encounter Visit Diagnoses Diagnosis Right cervical radiculopathy documented in this encounter Care Teams Lye Boiler Relationship Specialty Start Date End Date Keyonna Armstrong PA PCP - General Nurse Practitioner 06/20/18 documented as of this encounter
--- OUTSIDE RECORDS SUMMARY | 2024-07-11 00:42 | XMS_ITS | Encounter Summary ---
Author Organization [facility] Healthcare Address [address] [place] [address] Care Team Providers Care Oil Field Roustabout Name Role Phone Keyonna Armstrong Primary Care Provider + Reason for Referral * Diagnostic Imaging (Routine) - Closed Specialty Diagnoses / Procedures Referred By Contac t Referred To Contact Diagnoses Right shoulder pain, unspecified chronicity Procedures XR Shoulder Right 2 or More Views Pepe Zepeda MD [address] [place] [address] [address] [place] [address] Phone: tel: fax: [address] [phone] Referral ID Status Reason Start Date Expiration Date Visits Re quested Visits Authorized [id number] Closed 05/30/2021 06/29/2022 1 1 RUCTIONAL TECHNOLOGY TEACHER Reason for Visit * Diagnostic Imaging (Routine) - Closed Specialty Diagnoses / Procedures Referred By Contac t Referred To Contact Diagnoses Right shoulder pain, unspecified chronicity Procedures XR Shoulder Right 2 or More Views Pepe Zepeda MD [address] [place] [address] [address] [place] [address] Phone: tel: fax: [address] [phone] Referral ID Status Reason Start Date Expiration Date Visits Re quested Visits Authorized [id number] Closed 05/30/2021 06/29/2022 1 1 Encounter Details Date Type Department Care Team (Latest Contact Info) Description 05/30/2021 11:10 AM INSTRUCTIONAL TECHNOLOGY TEACHER - 05/30/2021 11:59 PM INSTRUCTIONAL TECHNOLOGY TEACHER Hospital Encounter [facility] Diag Imaging [address] [place] [address] Right shoulder pain, unspecified chronicity Discharge Disposition: [...] on file Legal Sex Female 6:41 PM INSTRUCTIONAL TECHNOLOGY TEACHER Gender Identity Not on file Sexual [...] Read Routine (OP Routine) 05/30/2021 11:16 AM INSTRUCTIONAL TECHNOLOGY TEACHER Right shoulder pain, unspecified chronicity documented in this encounter Results * XR Shoulder Right 2 or More Views (05/30/2021 11:16 AM INSTRUCTIONAL TECHNOLOGY TEACHER) Anatomical Region Laterality Modality Upper Extremities, Shoulder Right Comp uted Radiography 06/01/2021 9:16 AM INSTRUCTIONAL TECHNOLOGY TEACHER Narrative 06/01/2021 9:17 AM INSTRUCTIONAL TECHNOLOGY TEACHER EXAM DESCRIPTION: ?? XR SHOULDER RIGHT 2 [...] D: ??06/01/2021 9:17 AM T: Report ID: [id number] Reading Location: ??[place] [address] Procedure Note Pepe Zepeda MD - 06/01/2021 [...] signed by Pepe Zepeda T: Report ID: [id number] Reading Location: [place] [address] Pepe Zepeda MD IMG XR PROCEDURES Final Result documented in this encounter Visit Diagnoses Diagnosis Right shoulder pain, unspecified chronicity documented in this encounter Care Teams Oil Field Roustabout Relationship Specialty Start Date End Date Keyonna Armstrong PA PCP - General Nurse Practitioner 06/20/18 documented as of this encounter
--- OUTSIDE RECORDS SUMMARY | 2024-07-11 00:42 | XMS_ITS | Encounter Summary ---
Author Organization [facility] Address [address] [address] Care Team Providers Care Optoelectronics Engineer Name Role Phone Keyonna Armstrong Primary Care Provider + Reason for Referral * Procedure (Routine) - Closed Specialty Diagnoses / Procedures Referred By Contac t Referred To Contact Diagnoses Myalgia of muscle of neck Procedures Trigger Point Injection Valentina Curtis NP [facility]0 [facility] [address] [place] [address] [place] [address] Phone: tel: fax: [facility] Referral ID Status Reason Start Date Expiration Date Visits Re quested Visits Authorized [id number] Closed 06/02/2021 07/02/2022 1 1 DRY TECH * Neurology (Routine) - Closed Specialty Diagnoses / Procedures Referred By Contac t Referred To Contact Diagnoses Right cervical radiculopathy Numbness and tingling of right upper extremity Procedures EMG/NCV - Valentina Curtis NP [address] [place] [address] [address] Phone: tel: fax: [address] [phone] Referral ID Status Reason Start Date Expiration Date Visits Re quested Visits Authorized [id number] Closed 06/02/2021 07/02/2022 1 1 DRY TECH * MRI/CAT/PET Scan (Routine) - Closed Specialty Diagnoses / Procedures Referred By Lee saunders Referred To Contact Radiology Diagnoses Right cervical radiculopathy Procedures MRI Cervical Spine WO Contrast Valentina Curtis NP [address] [place] [address] Phone: tel: fax: [address] [phone] Referral ID Status Reason Start Date Expiration Date Visits Re quested Visits Authorized [id number] Closed 06/02/2021 07/02/2022 1 1 DRY TECH * Diagnostic Imaging (Routine) - Closed Specialty Diagnoses / Procedures Referred By Lee saunders Referred To Contact Diagnoses Neck pain Procedures XR Spine Cervical W Flexion And Extension 6 or More Views Valentina Curtis NP [address] [place] [address] Phone: tel: fax: [address] [phone] Referral ID Status Reason Start Date Expiration Date Visits Re quested Visits Authorized [id number] Closed 05/30/2021 06/29/2022 1 1 DRY TECH Reason for Visit * Reason Comments Pain * Consultation (Routine) - Closed Specialty Diagnoses / Procedures Referred By Lee t Referred To Contact Orthopedic Surgery Diagnoses Right shoulder pain, unspecified chronicity Cervicalgia Keyonna Armstrong PA [address] [place] [address] Phone: tel: fax: [facility] Orthopedics and Sports Medicine [address] [place] [phone] Phone: tel: fax: Referral ID Status Reason Start Date Expiration Date V isits Requested Visits Authorized [id number] Closed Specialty Services Required 05/23/2021 12/19/2021 7 7 Encounter Details Date Type Department Care Team (Latest Contact Info) Description 06/02/2021 11:00 AM LAUNDRY TECH Office Visit [facility] Orthopedics and Sports Medicine [address] [facility] [address] [place] [phone] Valentina Curtis NP [facility]0 [facility] [address] [place] [address] Right cervical radiculopathy; Degeneration of intervertebral disc [...] on file Legal Sex Female 6:41 PM LAUNDRY TECH Gender Identity Not on file Sexual Orientation Not on file 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 on file Not on file Not on leeann e documented as of this encounter Last Filed Vital Signs Vital Sign Reading Time Taken Comments Blood Pressure - - Pulse - - Temperature - - Respiratory Rate - - Oxygen Saturation - - Inhaled Oxygen Concentration - - Weight 122.5 kg (270 lb) 06/02/2021 11:33 AM LAUNDRY TECH Height 165.1 cm (5' 5) 06/02/2021 11:33 AM LAUNDRY TECH Body Mass Index 44.93 06/02/2021 11:33 AM LAUNDRY TECH documented in this encounter Progress Notes * Valentina Curtis NP - 06/02/2021 11:00 AM CSTAssociated Order(s): Trigger Point Injection Addendum July 25, 2021 I contacted Veronica Evangelista by telephone [phone] today July 25, 2021 to discuss the [...] refer her to Dr. Ezequiel Seals, neurosurgeon [facility] MRI cervical spine without contrast July 21, [...] can be obtained as clinically indicated. Multilevel feln-yz-ffckwvqw endplate degenerative changes with marginal spur formation. [...] indents the ventral cord. Thickened ligamentum flavum. Xfwl-zo-apgkzuyl spinal canal stenosis. Uncovertebral spurring and facet arthropathy with mild right and vluo-ed-xsqkljzu left neural foraminal narrowing. C7-T1: Anterolisthesis of C7 on T1 with unroofing of the disc. No significant spinal canal or neural foraminal narrowing. UPPER THORACIC: Incompletely imaged. No high-grade spinal canal stenosis. IMPRESSION: 1. Multilevel ugda-ev-ofkauqcu cervical spondylotic changes as described. Spinal canal [...] was referred to me by Dr. Pepe Zeepda for further evaluation of her chronic neck [...] basket, lifting her grandchildren. She went to [facility] 3 weeks ago and had dry needle therapy and physical therapy which she stopped due to increasing pain. She has tried home cervical spine range of motion exercises. Two weeks [facility] with no reduction of pain [...] of cervical region with osteophyte of cervical rqfdmjtk-hvenY1-X7, C6-C7 3. Protrusion of cervical intervertebral disc, [...] C7 dermatomal pathway. Failed conservative treatment with clinical care coordinator, physical therapy, use of Voltaren gel, ibuprofen, [...] to the fifth finger, and exhibit full strap folding machine operator strength Perfusion: 2+ radial and [...] Social History Occupational History ??? 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 Smoking status: Never Smoker ??? Smokeless tobacco: Never Used Substance and Sexual Activity ??? Alcohol use: No ??? Drug use: No ??? Sexual activity: Not on file Vital Signs: Height 165.1 cm (5' 5), weight 122.5 kg (270 lb), not currently . BMI Readings from Last 1 Encounters: 07/21/21 44.94 kg/m?? Valentina Curtis NP DRY TECH DRY TECH DRY TECH documented in this encounter Plan of Treatment Scheduled Orders Name Type Priority Associated Diagnoses Orde r Schedule EMG/NCV - Neurology Routine Right cervical radiculopathy Numbness and tingling of right upper extremity 1 Occurrences starting 06/02/2021 until 06/02/2022 documented as of this encounter Procedures Procedure Name Priority Date/Time Associated Diagnosis Comments TRIGGER POINT INJECTION Routine 06/02/2021 11:00 AM LAUNDRY TECH Myalgia of muscle of neck documented in this encounter Results * MRI Cervical Spine WO Contrast (07/21/2021 11:55 AM LAUNDRY TECH) Anatomical Region Laterality Modality Spine N/A Magnetic Resonan ce 07/21/2021 1:43 PM LAUNDRY TECH Narrative 07/21/2021 1:53 PM LAUNDRY TECH EXAM DESCRIPTION: ?? MRI CERVICAL SPINE WO [...] can be obtained as clinically indicated. ??Multilevel miby-bh-ugybeqkw endplate degenerative changes with marginal spur formation. [...] indents the ventral cord. ??Thickened ligamentum flavum. ??Dqoi-jp-qzmaqpwf spinal canal stenosis. ??Uncovertebral spurring and facet arthropathy with mild right and qlsj-wh-ylcywniv left neural foraminal narrowing. C7-T1: Anterolisthesis of C7 on T1 with unroofing of the disc. ??No significant spinal canal or neural foraminal narrowing. UPPER THORACIC: ?? Incompletely imaged. No high-grade spinal canal stenosis. IMPRESSION: ?? 1. ?? Multilevel itlv-fk-pftxzpyd cervical spondylotic changes as described. ?? Spinal canal narrowing is most noticeable at C5-C6 and C6-C7. 2. ?? Varying degrees of bilateral neural foraminal stenosis and additional findings as discussed above. THIS IS AN ELECTRONICALLY VERIFIED FINAL REPORT 07/21/2021 1:53 PM - Electronically signed by ??Major Ruano D.O. AP: AP D: ??07/21/2021 1:53 PM T: ??07/21/2021 1:53 PM Report ID: [id number] Reading Location: ??[id number] Procedure Note Major Ruano, DO - 07/21/2021 [...] can be obtained as clinically indicated. Multilevel hspu-su-sdwsqlga endplate degenerative changes with marginal spur formation. [...] complex indents the ventral cord.Thickened ligamentum flavum. Uaya-yq-vblghzur spinal canal stenosis. Uncovertebral spurring and facet arthropathy with mild right and kacf-ah-uemjwzor left neural foraminal narrowing. C7-T1: Anterolisthesis of C7 on T1 with unroofing of the disc. Nosignificant spinal canal or neural foraminal narrowing. UPPER THORACIC: Incompletely imaged. No high-grade spinal canalstenosis. IMPRESSION: 1. Multilevel ugsy-se-nwubkgtc cervical spondylotic changes asdescribed. Spinal canal narrowing is most noticeable at C5-C6 and C6-C7. 2. Varying degrees of bilateral neural foraminal stenosis and additional findings as discussed above. THIS IS AN ELECTRONICALLY VERIFIED FINAL REPORT 07/21/2021 1:53 PM - Electronically signed by Major Ruano D.O. AP: AP Report ID: [id number] Reading Location: [place] [address] Valentina Curtis NP IMG MRI PROCEDURES Final Re sult * XR Spine Cervical W Flexion And Extension 6 or More Views (06/02/2021 11:23 AM LAUNDRY TECH) Anatomical Region Laterality Modality Spine N/A Computed Radiogr aphy 06/02/2021 12:1 6 PM LAUNDRY TECH Narrative 06/02/2021 3:30 PM LAUNDRY TECH EXAM DESCRIPTION: ?XR SPINE CERVICAL W FLEXION [...] PM T: ??06/02/2021 1:52 PM Report ID: [id number] Reading Location: ??[id number] Procedure Note Sher Giron MD - 06/02/2021 EXAM DESCRIPTION: XR SPINE CERVICAL W FLEXION AND EXTENSION 6 OR MOREVIEWS REASON FOR STUDY: Right neck pain for 3 months. TECHNIQUE: AP, lateral, odontoid, flexion, extension, right oblique andleft oblique radiographic views acquired of the cervical spine. COMPARISON: None available FINDINGS: ALIGNMENT: There is trace anterolisthesis of C3 with respect to O6bcpdkvf evidence of instability on flexion or extension [...] Electronically signed by Sher DIETRICH Report ID: [id number] Reading Location: [place] [address] us Valentina Curtis WALL STEAMER IMG XR PROCEDURES Final Res ult * Trigger Point Injection (06/02/2021 11:00 AM LAUNDRY TECH) Narrative Valentina Curtis NP - 06/02/2021 11:00 AM LAUNDRY TECH Valentina Curtis NP ? 06/03/2021 ??7:46 PM [...] with no immediate complications us Valentina Curtis WALL STEAMER IN CLINIC/BEDSIDE ORDERABLE S Final Result documented [...] of Local Anesthesia Given 06/02/2021 9:25 PM LAUNDRY TECH 3 mL methylPREDNISolone acetate (DEPO-medrol) injection 120 mg 120 mg, intra-articular, One-Time Injection, Starting on Nela 06/02/21 at 2125, For 1 doseIndications:Myalgia of muscle of neck Given 06/02/2021 9:25 PM LAUNDRY TECH 120 mg documented in this encounter Orders Outpatient Referral Count Last Ordered Date Fir st Ordered Date AMB REFERRAL TO ORTHOPEDIC SURGERY 1 2020 documented in this encounter Care Teams Optoelectronics Engineer Relationship Specialty Start Date End Date Keyonna Armstrong PA PCP - General Nurse Practitioner 06/20/18 documented as of this encounter
--- OUTSIDE RECORDS SUMMARY | 2024-07-11 00:42 | XMS_ITS | Encounter Summary ---
Author Organization [facility] Address [address] [place] [address] Care Team Providers Care Manager Home Name Role Phone Keyonna Armstrong Primary Care Provider + Encounter Details Date Type Department Care Team (Latest Contact Info) Description 05/09/2021 12:05 AM CDT - 05/09/2021 11:59 PM CDT Hospital Encounter [facility] [employer] [address] [place] [address] Discharge Disposition: Discharge to home or self care Social History Tobacco Use Types Packs/Day Years Used Date Smoking Tobacco: Never Smokeless Tobacco: Never Alcohol Use Standard Drinks/Week Comments No 0 (1 standard drink = 0.6 oz pur e alcohol) Comments No Sex and Gender Information Value Date Recorded Sex Assigned at Not on file Legal Sex Female 6:41 PM SCHOOL PHOTOGRAPHS DETAILER Gender Identity Not on file Sexual Orientation [...] Narrative MIGUEL A_SANTIAGO_M[facility]_MHE - 05/30/2021 10:45 AM SCHOOL PHOTOGRAPHS DETAILER This order has been auto-finalized and does not contain a result. us Provider Transcribed Order IMG XR PROCEDURES Fin al Result RAD_SANTIAGO_MHB_MHE documented in this encounter Visit Diagnoses Not on filedocumented in this encounter Care Teams Manager Home Relationship Specialty Start Date End Date Keyonna Armstrong PA PCP - General Nurse Practitioner 06/20/18 documented as of this encounter
--- OUTSIDE RECORDS SUMMARY | 2024-07-11 00:43 | XMS_ITS | Encounter Summary ---
Author Organization [facility] Healthcare Address [facility] [place] [address] Care Team Providers Care Tree Specialist Name Role Phone Keyonna Armstrong Primary Care Provider + Encounter Details Date Type Department Care Team (Latest Contact Info) Description 06/20/2018 12:30 PM COMMUNICATIONS TECHNOLOGIST - 06/20/2018 11:59 PM COMMUNICATIONS TECHNOLOGIST Hospital Encounter [facility] [address] [place] [address] Discharge Disposition: Discharge to home or self care Social History Tobacco Use Types Packs/Day Years Used Date Smoking Tobacco: Never Smokeless Tobacco: Never Alcohol Use Standard Drinks/Week Comments No 0 (1 standard drink = 0.6 oz pur e alcohol) Comments Unknown Sex and Gender Information Value Date Recorded Sex Assigned at Not on file Legal Sex Female 6:41 PM COMMUNICATIONS TECHNOLOGIST Gender Identity Not on file Sexual Orientation [...] BODY OUTSIDE REFERENCE Routine 06/20/2018 12:30 PM COMMUNICATIONS TECHNOLOGIST Diagnosis unknown documented in this encounter Results * CT Body Outside Reference (06/20/2018 12:30 PM COMMUNICATIONS TECHNOLOGIST) Anatomical Region Laterality Modality N/A Mammography Impressions 06/20/2018 12:30 PM COMMUNICATIONS TECHNOLOGIST These images are for Reference purposes only and have not been reviewed by [facility] Radiology. ??There will be no report generated by a [facility] Radiologist. Narrative 06/20/2018 12:30 PM COMMUNICATIONS TECHNOLOGIST EXAMINATION: ??Images For Reference Purposes Only us Elli Hernandez MD PhD IMG CT PROCEDURES Final R esult documented in this encounter Visit Diagnoses Not on filedocumented in this encounter Care Teams Tree Specialist Relationship Specialty Start Date End Date Keyonna Armstrong PA PCP - General Nurse Practitioner 06/20/18 documented as of this encounter
--- OUTSIDE RECORDS SUMMARY | 2024-07-11 00:43 | XMS_ITS | Encounter Summary ---
Author Organization [facility] Healthcare Address [address] [place] [address] Care Team Providers Care Concrete Stone Finishing Supervisor Name Role Phone Keyonna Armstrong Primary Care Provider + Encounter Details Date Type Department Care Team (Latest Contact Info) Description 08/07/2018 6:55 AM BINDER CASER - 08/07/2018 4:41 PM BINDER CASER Hospital Encounter [facility] Operating Room [facility] [address] [place] [id number] Elli Hernandez MD PhD [address] [address] [place] [address] Cholecystitis Discharge Disposition: Discharge to home or self care Social History Tobacco Use Types Packs/Day Years Used Date Smoking Tobacco: Never Smokeless Tobacco: Never Alcohol Use Standard Drinks/Week Comments No 0 (1 standard drink = 0.6 oz pur e alcohol) Comments No Sex and Gender Information Value Date Recorded Sex Assigned at Not on file Legal Sex Female 6:41 PM BINDER CASER Gender Identity Not on file Sexual Orientation Not on file documented as of this encounter Last Filed Vital Signs Vital Sign Reading Time Taken Comments Blood Pressure 149/74 08/07/2018 4:00 PM BINDER CASER Pulse 116 08/07/2018 4:00 PM BINDER CASER Temperature 36.8 ??C (98.2 ??F) 08/07/2018 3:30 PM CS T Respiratory Rate 18 08/07/2018 4:00 PM BINDER CASER Oxygen Saturation 98% 08/07/2018 4:00 PM BINDER CASER Inhaled Oxygen Concentration - - Weight 131.5 kg (290 lb) 07/29/2018 4:00 PM BINDER CASER Height 165.1 cm (5' 5) 07/29/2018 4:00 PM BINDER CASER Body Mass Index 48.26 07/29/2018 4:00 PM BINDER CASER documented in this encounter Medications at Time [...] risk for: Procedure(s): LAPAROSCOPIC CHOLECYSTECTOMY WITH CHOLANGIOGRAMS ER CASER Source Note - Katherine Corey NP - 08/02/2018 11:23 AM BINDER CASER [facility] Preoperative Evaluation Record Telephone Preoperative Evaluation ([facility]) - TELEPHONE ONLY, NO PHYSICAL EXAM Date: [...] ) - other. Pertinent negatives: CAD ; [place] ; CABG ; valvular heart disease; valve [...] Medication protocol when under care of a RECREATION PROFESSOR Planned anesthesia: General Team communication plan: oral [...] and agree to proceed. All questions answered. ER CASER ER CASER documented in this encounter Miscellaneous Notes * Perioperative Nursing Note - Dariana Vu RN - 08/07/2018 4:[address] Lewis here. PT. States she feels better and wants to go home. She states she is getting her breath and not like before. States pain is fine and tolerable to abdomen. Abdomen lap sites CDI, no drainage noted. Denies nausea. Steady gait noted with movement getting dressed. Dr. Lewis with ok to DCto home. ER CASER * Perioperative Nursing Note - Dariana Vu RN - 08/07/2018 3:51 PM BINDER CASER IV metoprolol given as ordered. Pt in stretcher with telemetry on ST. Still states hard to get my breath. Dr. Lewis aware and here to assess. HOB 30, o2sat RA 100%. ER CASER * Perioperative Nursing Note - Dariana Vu RN - 08/07/2018 3:12 PM BINDER CASER Pt. C/o SOB and pain better. BS [...] from saline lock for going to bathroom. ER CASER * Perioperative Nursing Note - Dariana Vu RN - 08/07/2018 1:58 PM BINDER CASER Denies nausea. Po pain med ordered per Dr. Lewis, waiting for to be in pyxis as pt more awake. Pain is to abdomen and back.Abdopmen lap sites x 5 cdi , abdomen x 4 and umbilicus x 1. C and DB encouraged. Taking po ice chips. ER CASER * Op Note - Elli Hernandez MD [...] present and participated in the entire procedure. ER CASER * Pre-Procedure Instructions - Katherine Corey NP - 08/02/2018 11:18 AM CST [facility] Location: [facility] The night before your surgery: [...] your surgery: Vitamin E, Fish Oil ([place], [place] 3), Herbal medicines, Diet Pills ?? If [...] bowel prep or special diet before surgery ER CASER * Pre-Procedure Instructions - Soo Palmer RN - 07/29/2018 4:08 PM BINDER CASER PRE-SURGICAL INSTRUCTIONS ?? Surgery location provided to [...] 2 days of your surgery, please call [phone] and ask for your surgeon's office Dr. Hernandez ER CASER documented in this encounter Plan of Treatment Not on file documented as of this encounter Procedures Procedure Name Priority Date/Time Associated Diagnosis Comments FL FLUOROSCOPY < 1 HOUR IP Routine 08/07/2018 10:15 AM BINDER CASER SURGICAL PATHOLOGY Routine 08/07/2018 9: 51 AM BINDER CASER Cholecystitis LAPAROSCOPIC CHOLECYSTECTOMY WITH CHOLANGIOGRAMS 08/07/2018 8:25 AM BINDER CASER Cholecystitis POCT GLUCOSE DEVICE Routine Gen Lab 08/07/2018 8 :05 AM BINDER CASER POCT HCG, URINE Routine 08/07/2018 7:52 AM BINDER CASER documented in this encounter Results * FL Fluoroscopy < 1 Hour (08/07/2018 10:15 AM BINDER CASER) Narrative RAD_PACS_[facility] - 08/07/2018 10:39 AM BINDER CASER The images from this study are not interpreted by Radiology. ??Please refer to the physician's procedure / OR operative note. us Elli Hernandez MD PhD IMG FLUOROSCOPY PROCEDURE S Final Result RAD_PACS_[facility] * Surgical pathology (08/07/2018 9:51 AM BINDER CASER) Tissue (Gallbladder) 08/07/2018 9:51 AM BINDER CASER Narrative PATHOLOGY [facility] - 08/12/2018 4:48 PM BINDER CASER EPIC results best viewed via link to PDF [facility]ie Marlow [facility] [place] [address] SURGICAL PATHOLOGY REPORT FINAL Patient Name: ?? VERONICA EVANGELISTA Gender: ??F : ??1970 (Age: 47) Address: ??[address] [place] [id number] Hospital #: ??[id number] Taken:08/07/2018 Received:08/07/2018 Reported: 08/12/2018 Patient Type: [facility] SDS ?? Service: Surgery Location: [facility] Physician(s): ??Elli Hernandez M.D. Diagnosis: Gallbladder, laparoscopic [...] clip but is otherwise patent. ??Labeled A1- goodwill representative section of gallbladder body and fundus [...] determined by the Surgical Pathology Department at [facility] as part of an ongoing vendor quality supervisor program and in compliance with federally mandated [...] determined by the Surgical Pathology Department of [facility]. ??It has not been cleared or approved by the U. S. Food and Drug Administration. IMAGES AND SCANNED DOCUMENTS, IF INCLUDED, ONLY VIEWABLE IN PDF VERSION OF REPORT Elli Hernandez MD PhD LAB PATHOLOGY ORDERABLES Final Result [facility] [address]rd Floor [place], [place] [phone] * POCT glucose (08/07/2018 8:05 AM BINDER CASER) Pathologist [facility] [place] Glucose, POC 94 70 - 199 mg/dL [facility] Blood specimen (specimen) 08/07/2018 8:05 AM BINDER CASER 08/07/2018 8:05 AM BINDER CASER Narrative [facility] - 08/07/2018 8:06 AM BINDER CASER Elli Hernandez MD PhD LAB POCT ORDERABLES - DEV ICE Final Result Performing Organization Address City/[facility]/ZIP Co de Phone Number [facility] Department [place] [address] * POCT hCG, urine (08/07/2018 7:52 AM BINDER CASER) Pathologist [facility] [place] HCG, ur, POC Negative Lot Number [id number] QC Backgroud Clear Acceptable QC Control Line Acceptable Urine 08/07/2018 7:52 AM BINDER CASER Celso Klein MD POINT OF CARE TEST [...] PO., Indications: PainIndications:Pain Given 08/07/2018 4:12 PM BINDER CASER 1,000 mg fentaNYL (SUBLIMAZE) preservative free injection 50 mcg 50 mcg, intravenous, Once as needed, uncontrolled pain on PACU admission, Starting on Sun08/07/18 at 1118, For 1 dose, Phase I, Then proceed to PACU 1st line analgesic., Indications: PainIndications:Pain Given 08/07/2018 11:42 AM BINDER CASER 50 mcg haloperidol (HALDOL) 5 mg/mL injection - ADS Override Pull Starting on Sun08/07/18 at 1155, For 1 dose, IVAN DENG: cabinet override haloperidol (HALDOL) injection 1 mg 1 mg, intravenous, Administer over 5 Minutes, Once, On Sun08/07/18 at 1230, For 1 dose Given 08/07/2018 11:59 AM BINDER CASER 1 mg HYDROmorphone (DILAUDID) injection 0.2 mg 0.2 mg, intravenous, Administer over 2 Minutes, Every 10 min PRN, 1st line for pain, Starting on Sun08/07/18 at 1118, Phase I, Notify Anesthesiologist if total PACU dose reaches 2 mg and pain score 5/10 or more., Indications: PainIndications:Pain Given 08/07/2018 12:43 PM BINDER CASER 0.2 mg Given 08/07/2018 12:24 PM BINDER CASER 0.2 mg Given 08/07/2018 11:50 AM BINDER CASER 0.2 mg Lactated Ringer's (LR) infusion 30 mL/hr, intravenous, Continuous, Starting on Sun08/07/18 at 0830, Pre-Op New Bag 08/07/2018 3:41 PM BINDER CASER 30 mL/hr 30 mL/h r Lactated Ringer's (LR) infusion 30 mL/hr, intravenous, Continuous, Starting on Sun08/07/18 at 0830, Pre-Op New Bag 08/07/2018 12:38 PM BINDER CASER 30 mL/hr 30 mL/ hr New Bag 08/07/2018 8:25 AM BINDER CASER New Bag 08/07/2018 8:10 AM BINDER CASER 30 mL/hr 30 mL/hr Le ft Antecubital [...] followed by drowsiness. Given 08/07/2018 11:30 AM BINDER CASER 10 mg metoprolol (LOPRESSOR) injection 2.5 mg 2.5 mg, intravenous, Administer over 1 Minutes, Every 15 min PRN, other, prn HR>110, hold for SBP<90, Starting on Sun08/07/18 at 1512, For 2 doses Given 08/07/2018 4:00 PM BINDER CASER 2.5 mg Given 08/07/2018 3:44 PM BINDER CASER 2.5 mg ondansetron (ZOFRAN) injection 4 mg 4 mg, intravenous, Administer over 2 Minutes, Once, On Sun08/07/18 at 0830, For 1 dose, Pre-Op, Indications: Prevention of Post-Operative Nausea and VomitingIndications:Prev ention of Post-Operative Nausea and Vomiting Given 08/07/2018 8:10 AM BINDER CASER 4 mg oxyCODONE (ROXICODONE) tablet 5 mg 5 mg, oral, Once, On Sun08/07/18 at 1430, For 1 dose, Indications: PainIndications:Pain Given 08/07/2018 2:05 PM BINDER CASER 5 mg prochlorperazine (COMPAZINE) injection 10 mg 10 mg, intravenous, Administer over 2 Minutes, Once as needed, nausea, vomiting, Starting on Sun08/07/18 at 1227, For 1 dose, Phase I, If nausea/vomiting not relieved by ondansetron within 30 minutes or if ondansetron has been given within the last 6 hours. Given 08/07/2018 12:30 PM BINDER CASER 10 mg scopolamine patch 72 hour 1 patch 1 patch, transdermal, Administer over 72 Hours, Once, On Sun08/07/18 at 0830, For 1 dose, Pre-Op, Indications: Prevention of Post-Operative Nausea and VomitingIndications:Prev ention of Post-Operative Nausea and Vomiting Medication Applied 08/07/2018 8:01 AM BINDER CASER 1 patch Behind Right Ear documented in [...] Recently Administered Medications Times are shown in BINDER CASER. Scheduled Medication Order 08/05/2018 08/06/2018 08/07/2018 acetaminophen [...] 08/07/2018 documented in this encounter Care Teams Concrete Stone Finishing Supervisor Relationship Specialty Start Date End Date Keyonna Armstrong PA PCP - General Nurse Practitioner 06/20/18 documented as of this encounter
--- OUTSIDE RECORDS SUMMARY | 2024-07-11 00:43 | XMS_ITS | Encounter Summary ---
Author Organization [facility] Healthcare Address [address] [place] [address] Care Team Providers Care Technical Assistance Consultant Name Role Phone Keyonna Armstrong Primary Care Provider + Encounter Details Date Type Department Care Team (Late st Contact Info) Description 08/07/2018 8:25 AM GROUP SEGMENT CONSULTANT Anesthesia Event [facility] Operating Room [facility] ([facility] [place] [address] Pastor Russell MD [address] [place] [address] Beatriz Lopes NP [address] [facility] [phone] [place] [address] Anesthesia Record Procedure Summary Procedure Name Responsible [...] 0916; Abdomen; 06/24/24 (Retired LDA, Removed/Completed by Incentient with LDA Utility); 1213 (Retired LDA, Removed/Completed by Incentient with LDA Utility) 08/07/18 0916 by Ellis [...] on file Legal Sex Female 6:41 PM GROUP SEGMENT CONSULTANT Gender Identity Not on file Sexual Orientation Not on file documented as of this encounter OR Notes * Anesthesia Postprocedure Evaluation - Lele Lewis MD DDS - 08/07/2018 4:16 PM CST Patient: Veronica Evangelista Procedure Summary Date: 08/07/18 Room / Location: [facility] CAM OR POD 4 ROOM C / [facility] CAM OR POD 4 Anesthesia Start: [...] reports feeling better. OK for d/c home. P SEGMENT CONSULTANT * Anesthesia Procedure Notes - Jesse Shepherd MD - 08/07/2018 8:59 AM GROUP SEGMENT CONSULTANT Associated Order(s): PERIPHERAL LINE Peripheral IV Catheter [...] patient tolerated procedure well with no complications P SEGMENT CONSULTANT * Anesthesia Procedure Notes - Jesse Shepherd MD - 08/07/2018 8:57 AM GROUP SEGMENT CONSULTANT Associated Order(s): ANESTHESIA INTUBATION Airway Patient location: [...] habitus. Grade 1 view with direct laryngoscopy. P SEGMENT CONSULTANT * Anesthesia Preprocedure Evaluation - Pastor Russell MD - 08/02/2018 11:23 AM CST [place] for Preoperative Assessment and Planning Preoperative Evaluation Record Telephone Preoperative Evaluation ([facility]) - TELEPHONE ONLY, NO PHYSICAL EXAM [...] ) - other. Pertinent negatives: CAD ; [place] ; CABG ; valvular heart disease; valve [...] Review of Systems + SOB (stable, chronic belal ) + wheezing (rare ) + easy [...] Medication protocol when under care of a BUSINESS INTELLIGENCE ETL DEVELOPER Planned anesthesia: General Team communication plan: oral [...] and agree to proceed. All questions answered. P SEGMENT CONSULTANT P SEGMENT CONSULTANT documented in this encounter Miscellaneous Notes * Addendum Note - Pastor Russell MD - 08/07/2018 4:21 PM CST Addendum created 08/07/18 2303 by Pastor Russell MD Anesthesia Event edited P SEGMENT CONSULTANT documented in this encounter Plan of Treatment Not on file documented as of this encounter Procedures Procedure Name Priority Date/Time Associated Diagnosis Comments PERIPHERAL LINE Routine 08/07/2018 8:59 AM GROUP SEGMENT CONSULTANT Procedure Note - Jesse Shepherd MD - [...] complications ANESTHESIA INTUBATION Routine 08/07/2018 8:57 AM GROUP SEGMENT CONSULTANT Procedure Note - Jesse Shepherd MD - [...] 0851, Anesthesia Intra-op Given 08/07/2018 8:51 AM GROUP SEGMENT CONSULTANT 3,000 mg dexamethasone (DECADRON) injection Administer over 2 Minutes, As needed, Starting on Sun08/07/18 at 0913, Anesthesia Intra-op Given 08/07/2018 9:13 AM GROUP SEGMENT CONSULTANT 4 mg ePHEDrine injection intravenous, Administer over 5 Minutes, As needed, Starting on Sun08/07/18 at 0914, Anesthesia Intra-op Given 08/07/2018 9:14 AM GROUP SEGMENT CONSULTANT 5 mg fentaNYL (SUBLIMAZE) preservative free injection intravenous, As needed, Starting on Sun08/07/18 at 0836, Anesthesia Intra-op Given 08/07/2018 11:05 AM GROUP SEGMENT CONSULTANT 25 mcg Given 08/07/2018 10:36 AM GROUP SEGMENT CONSULTANT 50 mcg Given 08/07/2018 8:36 AM GROUP SEGMENT CONSULTANT 100 mcg glycopyrrolate (ROBINUL) injection intravenous, Administer over 1 Minutes, As needed, Starting on Sun08/07/18 at 1057, Anesthesia Intra-op Given 08/07/2018 10:57 AM GROUP SEGMENT CONSULTANT 0.8 mg Lactated Ringer's (LR) infusion 30 mL/hr, intravenous, Continuous, Starting on Sun08/07/18 at 0830, Pre-Op New Bag 08/07/2018 12:38 PM GROUP SEGMENT CONSULTANT 30 mL/hr 30 mL/ hr New Bag 08/07/2018 8:25 AM GROUP SEGMENT CONSULTANT New Bag 08/07/2018 8:10 AM GROUP SEGMENT CONSULTANT 30 mL/hr 30 mL/hr Le ft Antecubital lidocaine PF (XYLOCAINE) 10 mg/mL (1 %) preservative free injection As needed, Starting on Sun08/07/18 at 0836, Anesthesia Intra-op Given 08/07/2018 8:36 AM GROUP SEGMENT CONSULTANT 100 mg neostigmine (PROSTIGMIN) injection intravenous, Administer over 3 Minutes, As needed, Starting on Sun08/07/18 at 1057, Anesthesia Intra-op Given 08/07/2018 10:57 AM GROUP SEGMENT CONSULTANT 4 mg phenylephrine (LOREE-SYNEPHRINE) 0.5 mg/5 mL (100 mcg/mL) premix syringe in 0.9% sodium chloride intravenous, As needed, Starting on Sun08/07/18 at 0914, Anesthesia Intra-op Given 08/07/2018 10:50 AM GROUP SEGMENT CONSULTANT 100 mc g Given 08/07/2018 10:40 AM GROUP SEGMENT CONSULTANT 100 mcg Given 08/07/2018 9:14 AM GROUP SEGMENT CONSULTANT 100 mcg propofol (DIPRIVAN) IV intravenous, As needed, Starting on Sun08/07/18 at 0836, Anesthesia Intra-op Given 08/07/2018 10:35 AM GROUP SEGMENT CONSULTANT 50 mg Given 08/07/2018 10:29 AM GROUP SEGMENT CONSULTANT 50 mg Given 08/07/2018 8:36 AM GROUP SEGMENT CONSULTANT 250 mg rocuronium (ZEMURON) injection intravenous, As needed, Starting on Sun08/07/18 at 0905, Anesthesia Intra-op Given 08/07/2018 10:10 AM GROUP SEGMENT CONSULTANT 20 mg Given 08/07/2018 9:46 AM GROUP SEGMENT CONSULTANT 20 mg Given 08/07/2018 9:08 AM GROUP SEGMENT CONSULTANT 10 mg succinylcholine (ANECTINE) injection intravenous, As needed, Starting on Sun08/07/18 at 0838, Anesthesia Intra-op Given 08/07/2018 8:38 AM GROUP SEGMENT CONSULTANT 100 mg documented in this encounter Orders Procedures Count Last Ordered Date First Orde red Date ANESTHESIA INTUBATION 08/07/2018 PERIPHERAL LINE 08/07/2018 documented in this encounter Care Teams Technical Assistance Consultant Relationship Specialty Start Date End Date Keyonna Armstrong PA PCP - General Nurse Practitioner 06/20/18 documented as of this encounter
--- OUTSIDE RECORDS SUMMARY | 2024-07-11 00:43 | XMS_ITS | Encounter Summary ---
Author Organization [facility] Address [address] [facility] [address] [place] [address] Phone Care Team Providers Care Claim Analyst Name Role Phone Keyonna Armstrong Primary Care Provider + Reason for Visit * Consultation (Routine) - Closed Specialty Diagnoses / Procedures Referred By Lee t Referred To Contact Bariatrics / Bariatric Surgery Diagnoses Gallbladder abscess Referral, Self [facility] [address] [facility] [address] [place] [address] Phone: tel: Referral ID Status Reason Start Date Expiration Date V isits Requested Visits Authorized [id number] Closed Specialty Services Required 06/19/2018 07/25/2018 1 Encounter Details Date Type Department Care Team (Latest Contact Info) Description 06/20/2018 9:00 AM APPLIANCE SERVICE TECHNICIAN Office Visit [facility] Surgery [address] [place] [address] Medical Office Building [address] [place] [id number] Elli Hernandez MD PhD [address] [place] [address] Intestinal malabsorption, unspecified type (Primary Dx); Gallbladder [...] on file Legal Sex Female 6:41 PM APPLIANCE SERVICE TECHNICIAN Gender Identity Not on file Sexual Orientation Not on file documented as of this encounter Last Filed Vital Signs Vital Sign Reading Time Taken Comments Blood Pressure 137/88 06/20/2018 9:14 AM APPLIANCE SERVICE TECHNICIAN Pulse 125 06/20/2018 9:14 AM APPLIANCE SERVICE TECHNICIAN Temperature 36.6 ??C (97.9 ??F) 06/20/2018 9:14 AM CS T Respiratory Rate - - Oxygen Saturation - - Inhaled Oxygen Concentration - - Weight 132.3 kg (291 lb 9.6 oz) 06/20/2018 9:14 AM APPLIANCE SERVICE TECHNICIAN Height 163.5 cm (5' 4.37) 06/20/2018 9:14 AM CS T Body Mass Index 49.48 06/20/2018 9:14 AM APPLIANCE SERVICE TECHNICIAN documented in this encounter Patient Instructions * Patient Instructions* Elli Hernandez MD PhD - 06/20/2018 9:00 AM APPLIANCE SERVICE TECHNICIAN B12 500 micrograms a day Ca citrate 500 mg, three times a day MVI--need to get 200% of the daily value IANCE SERVICE TECHNICIAN documented in this encounter Progress Notes * Elli Hernandez MD PhD - 06/20/2018 9:00 AM CST Images from the original note were not included. [facility] Minimally Invasive Surgery New Patient Consultation / [...] should be taking. Elli Hernandez MD PhD IANCE SERVICE TECHNICIAN documented in this encounter Plan of [...] SENT TO: Routine 07/11/2018 8: 19 AM APPLIANCE SERVICE TECHNICIAN IRON PROFILE W/ IBC Routine 07/11/2018 8 :19 AM APPLIANCE SERVICE TECHNICIAN Intestinal malabsorption, unspecified type Bariatric surgery status CBC WITH AUTO DIFFERENTIAL Routine 07/11/2018 8:19 AM APPLIANCE SERVICE TECHNICIAN Intestinal malabsorption, unspecified type Bariatric surgery status COPPER, SERUM Routine 07/11/2018 8:19 AM APPLIANCE SERVICE TECHNICIAN Intestinal malabsorption, unspecified type Bariatric surgery status VITAMIN D 25 HYDROXY Routine 07/11/2018 8:19 AM APPLIANCE SERVICE TECHNICIAN Intestinal malabsorption, unspecified type Bariatric surgery status VITAMIN B1 Routine 07/11/2018 8:19 AM APPLIANCE SERVICE TECHNICIAN Intestinal malabsorption, unspecified type Bariatric surgery status PTH Routine 07/11/2018 8:19 AM APPLIANCE SERVICE TECHNICIAN Intestinal malabsorption, unspecified type Bariatric surgery status LIPASE Routine 07/11/2018 8:19 AM APPLIANCE SERVICE TECHNICIAN HEMOGLOBIN A1C Routine 07/11/2018 8:19 AM APPLIANCE SERVICE TECHNICIAN Intestinal malabsorption, unspecified type Bariatric surgery status FOLATE Routine 07/11/2018 8:19 AM APPLIANCE SERVICE TECHNICIAN Intestinal malabsorption, unspecified type Bariatric surgery status FERRITIN Routine 07/11/2018 8:19 AM APPLIANCE SERVICE TECHNICIAN Intestinal malabsorption, unspecified type Bariatric surgery status VITAMIN B12 Routine 07/11/2018 8:19 AM APPLIANCE SERVICE TECHNICIAN Intestinal malabsorption, unspecified type Bariatric surgery status AMYLASE Routine 07/11/2018 8:19 AM APPLIANCE SERVICE TECHNICIAN LIPID PANEL Routine 07/11/2018 8:19 AM APPLIANCE SERVICE TECHNICIAN Intestinal malabsorption, unspecified type Bariatric surgery status COMPREHENSIVE METABOLIC PANEL Routine 07/11/2018 8:19 AM APPLIANCE SERVICE TECHNICIAN Intestinal malabsorption, unspecified type Bariatric surgery status documented in this encounter Results * (ABNORMAL) Lipase (07/11/2018 8:19 AM APPLIANCE SERVICE TECHNICIAN) LIPASE 69(H) 7 - 60 U/L [facility] [place] 07/11/2018 8:19 AM APPLIANCE SERVICE TECHNICIAN 07/11/2018 8:20 AM APPLIANCE SERVICE TECHNICIAN Narrative [facility] - 07/15/2018 8:57 AM APPLIANCE SERVICE TECHNICIAN FASTING:YES FASTING: YES Resulting Agency Comment Performing Organization Information: ?Site ID: RICH ?Name: Gerry Hutchison ?Address: [facility] [place] [address] ?Director: Servando Cervantes D.O., MPH us Elli Hernandez MD PhD LAB BLOOD ORDERABLES Kiley l Result Performing Organization Address [facility]/ZIP Co de Phone Number [facility] - [place] * Amylase (07/11/2018 8:19 AM APPLIANCE SERVICE TECHNICIAN) Amylase 84 21 - 101 U/L [facility] - [place] 07/11/2018 8:19 AM APPLIANCE SERVICE TECHNICIAN 07/11/2018 8:20 AM APPLIANCE SERVICE TECHNICIAN Narrative [facility] - 07/15/2018 8:57 AM APPLIANCE SERVICE TECHNICIAN FASTING:YES FASTING: YES Resulting Agency Comment Performing Organization Information: ?Site ID: RICH ?Name: Gerry Hutchison ?Address: [facility] [place] [address] ?Director: Servando Cervantes D.O., MPH us Elli Hernandez MD PhD LAB BLOOD ORDERABLES Kiley l Result Performing Organization Address [facility] Co de Phone Number [place] * COPY(IES) SENT TO: (07/11/2018 8:19 AM APPLIANCE SERVICE TECHNICIAN) COPY(IES) SENT TO: [facility] Comment: ?[facility] ?[address] ?[place] [address] 07/11/2018 8:19 AM APPLIANCE SERVICE TECHNICIAN 07/11/2018 8:20 AM APPLIANCE SERVICE TECHNICIAN Narrative [facility] - 07/15/2018 8:57 AM APPLIANCE SERVICE TECHNICIAN FASTING:YES FASTING: YES us Elli Hernandez MD PhD LAB BLOOD ORDERABLES Kiley l Result [facility] * Vitamin D 25 hydroxy (07/11/2018 8:19 AM APPLIANCE SERVICE TECHNICIAN) Vitamin D 25-OH 41 30 - 100 ng/mL [facility] - [place] Comment: Vitamin D Status ? 25-OH Vitamin D: Deficiency: ?<20 ng/mL Insufficiency: ? 20 - 29 ng/mL Optimal: ? > or = 30 ng/mL For 25-OH Vitamin D testing on patients on D2-supplementation and patients for whom quantitation of D2 and D3 fractions is required, the QuestAssureD(TM) 25-OH VIT D, (D2,D3), LC/MS/MS is recommended: order code 80765 (patients >2yrs). For more information on this test, go to: http://education.4 the stars/faq/BEO453 (This link is being provided for informational/educational purposes only.) Blood specimen (specimen) 07/11/2018 8:19 AM APPLIANCE SERVICE TECHNICIAN 07/11/2018 8:20 AM APPLIANCE SERVICE TECHNICIAN Narrative [facility] - 07/15/2018 8:57 AM APPLIANCE SERVICE TECHNICIAN FASTING:YES FASTING: YES Resulting Agency Comment Performing Organization Information: ?Site ID: [place] ?Name: [facility] ?Address: [address] [place] [address] [place] [address] ?Director: Servando Cervantes D.O., MPH us Elli Hernandez MD PhD LAB BLOOD ORDERABLES Kiley garrett Result [facility] - [place] * Vitamin B12 (07/11/2018 8:19 AM APPLIANCE SERVICE TECHNICIAN) Vitamin B12 350 200 - 1,100 pg/mL [facility] [place] Comment: Please Note: Although the reference range for vitamin B12 is 200-1100 pg/mL, it has been reported that between 5 and 10% of patients with values between 200 and 400 pg/mL may experience neuropsychiatric and hematologic abnormalities due to occult B12 deficiency; less than 1% of patients with values above 400 pg/mL will have symptoms. Blood specimen (specimen) 07/11/2018 8:19 AM APPLIANCE SERVICE TECHNICIAN 07/11/2018 8:20 AM APPLIANCE SERVICE TECHNICIAN Narrative [facility] - 07/15/2018 8:57 AM APPLIANCE SERVICE TECHNICIAN FASTING:YES FASTING: YES Resulting Agency Comment Performing Organization Information: ?Site ID: [place] ?Name: [facility] ?Address: [address] [place] [address] ?Director: Servando Cervantes D.O., MPH us Elli Hernandez MD PhD LAB BLOOD ORDERABLES Kiley l Result Performing Organization Address City/[facility]/ZIP Co de Phone Number [facility] - [place] * (ABNORMAL) Vitamin B1 (07/11/2018 8:19 AM APPLIANCE SERVICE TECHNICIAN) [facility] Thiamine (Vit B1) 192(H) 78 - 185 nmol/L [facility] Comment: Vitamin supplementation within 24 hours prior to blood draw may affect the accuracy of results. This test was developed and its analytical performance characteristics have been determined by [facility]. It has not been cleared or approved by FDA. This assay has been validated pursuant to the CLIA regulations and is used for clinical purposes. Blood specimen (specimen) 07/11/2018 8:19 AM APPLIANCE SERVICE TECHNICIAN 07/11/2018 8:20 AM APPLIANCE SERVICE TECHNICIAN Narrative [facility] - 07/15/2018 8:57 AM APPLIANCE SERVICE TECHNICIAN FASTING:YES FASTING: YES Resulting Agency Comment Performing Organization Information: ?Site ID: [facility] ?Name: [facility] [place] ?Address: [address] [place] [address] ?Director: Darrell Morris M.D., Ph.D us Elli Hernandez MD PhD LAB BLOOD ORDERABLES Kiley l Result [facility] [place], [place] * PTH, intact (07/11/2018 8:19 AM APPLIANCE SERVICE TECHNICIAN) Pathologist [facility] Parathyroid hormone, intact 55 14 - 64 pg/mL [facility] - [place] Comment: Interpretive Guide ?Intact PTH ? Calcium ? ------- Normal Parathyroid ?Normal ? Normal Hypoparathyroidism ?Low or Low Normal ?Low Hyperparathyroidism ?? Primary ?Normal or High ? High ?? Secondary ?High ? Normal or Low ?? Tertiary ? High ? High Non-Parathyroid ?? Hypercalcemia ?Low or Low Normal ?High Blood specimen (specimen) 07/11/2018 8:19 AM APPLIANCE SERVICE TECHNICIAN 07/11/2018 8:20 AM APPLIANCE SERVICE TECHNICIAN Narrative [facility] - 07/15/2018 8:57 AM APPLIANCE SERVICE TECHNICIAN FASTING:YES FASTING: YES Resulting Agency Comment Performing Organization Information: ?Site ID: [place] ?Name: [facility] ?Address: [address] [place] [address] [place] [address] ?Director: Servando Cervantes D.O., MPH us Elli Hernandez MD PhD LAB BLOOD ORDERABLES Kiley l Result [facility] - [place] * (ABNORMAL) Lipid panel (07/11/2018 8:19 AM APPLIANCE SERVICE TECHNICIAN) Pathologist [facility] Cholesterol 139 <200 mg/dL [facility] - [...] LDL-C. Deep GREER et al. JAMAR. 2013;310(19): 5381-9396 (http://education.Celiro/faq/IWX974) Chol/HDL ratio 3.7 <5.0 (calc) [facility] [place] Non-HDL, (LDL+VLDL) 101 <130 mg/dL (calc) [facility] [place] Comment: For patients with diabetes plus 1 major ASCVD risk factor, treating to a non-HDL-C goal of <100 mg/dL (LDL-C of <70 mg/dL) is considered a therapeutic option. Blood specimen (specimen) 07/11/2018 8:19 AM APPLIANCE SERVICE TECHNICIAN 07/11/2018 8:20 AM APPLIANCE SERVICE TECHNICIAN Narrative [facility] - 07/15/2018 8:57 AM APPLIANCE SERVICE TECHNICIAN FASTING:YES FASTING: YES Resulting Agency Comment Performing Organization Information: ?Site ID: [place] ?Name: [facility] ?Address: [address] [place] [address] [place] [address] ?Director: Servando Cervantes D.O., MPH Elli Hernandez MD PhD LAB BLOOD ORDERABLES Kiley l Result [facility] - [facility] * (ABNORMAL) Iron profile w/ IBC (07/11/2018 8:19 AM APPLIANCE SERVICE TECHNICIAN) Iron 132 40 - 190 mcg/dL [facility] [place] TIBC 463(H) 250 - 450 mcg/dL (calc) [facility] - [place] Iron saturation 29 11 - 50 % (calc) [facility] [place] Blood specimen (specimen) 07/11/2018 8:19 AM APPLIANCE SERVICE TECHNICIAN 07/11/2018 8:20 AM APPLIANCE SERVICE TECHNICIAN Narrative [facility] - 07/15/2018 8:57 AM APPLIANCE SERVICE TECHNICIAN FASTING:YES FASTING: YES Resulting Agency Comment Performing Organization Information: ?Site ID: [place] ?Name: Gerry Hutchison ?Address: [facility] [place] [address] ?Director: Servando Cervantes D.O., MPH Elli Hernandez MD PhD LAB BLOOD ORDERABLES Kiley l Result Performing Organization Address [facility] [[email or web address]] de Phone Number [place] * Hemoglobin A1c (07/11/2018 8:19 AM APPLIANCE SERVICE TECHNICIAN) Hgb A1C 5.1 <5.7 % of total [...] diagnosis of diabetes in children. According to [place] Diabetes Association (ADA) guidelines, hemoglobin A1c <7.0% represents optimal control in non- diabetic patients. Different metrics may apply to specific patient populations. Standards of Medical Care in Diabetes(ADA). ?? Blood specimen (specimen) 07/11/2018 8:19 AM APPLIANCE SERVICE TECHNICIAN 07/11/2018 8:20 AM APPLIANCE SERVICE TECHNICIAN Narrative [facility] - 07/15/2018 8:57 AM APPLIANCE SERVICE TECHNICIAN FASTING:YES FASTING: YES Resulting Agency Comment Performing Organization Information: ?Site ID: RICH ?Name: Gerry Hutchison ?Address: [facility] [place] [address] ?Director: Servando Cervantes D.O., MPH Elli Hernandez MD PhD LAB BLOOD ORDERABLES Kiley l Result Performing Organization Address [facility] Co de Phone Number R[place] * Folate (07/11/2018 8:19 AM APPLIANCE SERVICE TECHNICIAN) Folate, Serum 22.5 ng/mL [facility] - [place] Comment: ? Reference Range ? Low: ? <3.4 ? Borderline: ?3.4-5.4 ? Normal: ?>5.4 Blood specimen (specimen) 07/11/2018 8:19 AM APPLIANCE SERVICE TECHNICIAN 07/11/2018 8:20 AM APPLIANCE SERVICE TECHNICIAN Narrative [facility] - 07/15/2018 8:57 AM APPLIANCE SERVICE TECHNICIAN FASTING:YES FASTING: YES Resulting Agency Comment Performing Organization Information: ?Site ID: [place] ?Name: [facility] ?Address: [address] [place] [address] ?Director: Servando Cervantes D.O., MPH us Elli Hernandez MD PhD LAB BLOOD ORDERABLES Kiley garrett Result [facility] - [place] * Ferritin (07/11/2018 8:19 AM APPLIANCE SERVICE TECHNICIAN) Ferritin 10 10 - 232 ng/mL [facility] - [place] Blood specimen (specimen) 07/11/2018 8:19 AM APPLIANCE SERVICE TECHNICIAN 07/11/2018 8:20 AM APPLIANCE SERVICE TECHNICIAN Narrative [facility] - 07/15/2018 8:57 AM APPLIANCE SERVICE TECHNICIAN FASTING:YES FASTING: YES Resulting Agency Comment Performing Organization Information: ?Site ID: [place] ?Name: [facility] ?Address: [address] [place] [address] ?Director: Servando Cervantes D.O., MPH Elli Hernandez MD PhD LAB BLOOD ORDERABLES Kiley garrett Result Performing Organization Address [facility]/ZIP Co de Phone Number [facility] - [place] * (ABNORMAL) Copper, serum (07/11/2018 8:19 AM APPLIANCE SERVICE TECHNICIAN) Pathologist [facility] Copper 185(H) 70 - 175 mcg/dL [facility] Comment: This test was developed and its analytical performance characteristics have been determined by [facility]. It has not been cleared or approved by the US Food and Drug Administration. This assay has been validated pursuant to the CLIA regulations and is used for clinical purposes. Blood specimen (specimen) 07/11/2018 8:19 AM APPLIANCE SERVICE TECHNICIAN 07/11/2018 8:20 AM APPLIANCE SERVICE TECHNICIAN Narrative [facility] - 07/15/2018 8:57 AM APPLIANCE SERVICE TECHNICIAN FASTING:YES FASTING: YES Resulting Agency Comment Performing Organization Information: ?Site ID: [facility] ?[facility] ?Address: [address] [place] [address] ?Director: Darrell Morris M.D., Ph.D Elli Hernandez MD PhD LAB BLOOD ORDERABLES Kiley l Result Performing Organization Address [facility] Co de Phone Number [place], [place] * CBC with auto differential (07/11/2018 8:19 AM APPLIANCE SERVICE TECHNICIAN) WBC 10.0 3.8 - 10.8 Thousand/ uL [...] ancillary Blood specimen (specimen) 07/11/2018 8:19 AM APPLIANCE SERVICE TECHNICIAN 07/11/2018 8:20 AM APPLIANCE SERVICE TECHNICIAN Narrative [facility] - 07/15/2018 8:57 AM APPLIANCE SERVICE TECHNICIAN FASTING:YES FASTING: YES Resulting Agency Comment Performing Organization Information: ?Site ID: [place] ?Name: [facility] ?Address: [facility] [place] [address] ?Director: Servando Cervantes D.O., MPH us Elli Hernandez MD PhD LAB BLOOD ORDERABLES Kiley l Result [facility] - [place] * Comprehensive metabolic panel (07/11/2018 8:19 AM APPLIANCE SERVICE TECHNICIAN) Glucose 92 65 - 99 mg/dL [facility] - [place] Comment: ? Fasting reference interval BUN 21 7 - 25 mg/dL [facility] [place] Creatinine 0.79 0.50 - 1.10 mg/dL [facility] - [place] eGFR NON-AFR. INDONESIAN 88 > OR = 60 mL/min/1. 73m2 [...] ALT (SGPT) 16 6 - 29 U/L [facility] - [place] Blood specimen (specimen) 07/11/2018 8:19 AM APPLIANCE SERVICE TECHNICIAN 07/11/2018 8:20 AM APPLIANCE SERVICE TECHNICIAN Narrative [facility] - 07/15/2018 8:57 AM APPLIANCE SERVICE TECHNICIAN FASTING:YES FASTING: YES Resulting Agency Comment Performing Organization Information: ?Site ID: [place] ?Name: [facility] ?Address: [address] [place], [place] [address] [address] ?Director: Servando Cervantes D.O., MPH us Elli Hernandez MD PhD LAB BLOOD ORDERABLES Kiley garrett Result [facility] [place] documented in this encounter [...] 018 documented in this encounter Care Teams Claim Analyst Relationship Specialty Start Date End Date Keyonna Armstrong PA PCP - General Nurse Practitioner 06/20/18 documented as of this encounter
--- OUTSIDE RECORDS SUMMARY | 2024-07-11 00:43 | XMS_ITS | Encounter Summary ---
Author Organization [facility] Healthcare Address [facility] [place] [address] Care Team Providers Care Nylon Operator Name Role Phone Keyonna Armstrong Primary Care Provider + Encounter Details Date Type Department Care Team (Latest Contact Info) Description 06/20/2018 12:27 PM CMA - 06/20/2018 12:29 PM CMA Hospital Encounter [facility] [address] [place] [id number] Discharge Disposition: Discharge to home or self care Social History Tobacco Use Types Packs/Day Years Used Date Smoking Tobacco: Never Smokeless Tobacco: Never Alcohol Use Standard Drinks/Week Comments No 0 (1 standard drink = 0.6 oz pur e alcohol) Comments Unknown Sex and Gender Information Value Date Recorded Sex Assigned at Not on file Legal Sex Female 6:41 PM CMA Gender Identity Not on file Sexual Orientation [...] OF OUTSIDE FILMS Routine 06/20/2018 12:27 PM CMA Diagnosis unknown documented in this encounter Results * US Outside Reference (06/20/2018 12:27 PM CMA) Anatomical Region Laterality Modality Ultrasound Impressions 06/20/2018 12:27 PM CMA These images are for Reference purposes only and have not been reviewed by [facility] Radiology. ??There will be no report generated by a [facility] Radiologist. Narrative 06/20/2018 12:27 PM CMA EXAMINATION: ??Images For Reference Purposes Only us Elli Hernandez MD PhD IMG US PROCEDURES Final R esult documented in this encounter Visit Diagnoses Not on filedocumented in this encounter Care Teams Nylon Operator Relationship Specialty Start Date End Date Keyonna Armstrong PA PCP - General Nurse Practitioner 06/20/18 documented as of this encounter
--- OUTSIDE RECORDS SUMMARY | 2024-07-11 00:43 | XMS_ITS | Encounter Summary ---
Author Organization [facility] Address [address] [facility] [address] [place] [address] Care Team Providers Care Manufacturing Worker Name Role Phone Keyonna Armstrong Primary Care Provider + Reason for Referral * (Routine) - Closed Specialty Diagnoses / Procedures Referred By Contac t Referred To Contact Procedures Transthoracic Echo Complete W Doppler/CF [facility] Cardiology [address] [facility] [address] [place] [address] Phone: tel: fax: Referral ID Status Reason Start Date Expiration Date Visits Re quested Visits Authorized [id number] Closed 06/28/2018 01/07/2020 1 1 SITIONAL CARE NURSE Encounter Details Date Type Department Care Team (Late st Contact Info) Description 06/28/2018 Orders Only [facility] Cardiology [address] [facility] [address] [place] [phone] Gloria Bautista MD [address] [place] [address] Social History Tobacco Use Types Packs/Day Years Used Date Smoking Tobacco: Never Smokeless Tobacco: Never Alcohol Use Standard Drinks/Week Comments No 0 (1 standard drink = 0.6 oz pur e alcohol) Comments Unknown Sex and Gender Information Value Date Recorded Sex Assigned at Not on file Legal Sex Female 6:41 PM TRANSITIONAL CARE NURSE Gender Identity Not on file Sexual [...] on filedocumented in this encounter Care Teams Manufacturing Worker Relationship Specialty Start Date End Date Keyonna Armstrong PA PCP - General Nurse Practitioner 06/20/18 documented as of this encounter
== END 2024-07-08 15:45 | disposition home or self-care (01) | DRG 659 ==
LOC: ANHED 14:28 → ANHICU 14:31 → ANHIMU 07-08 04:40
PROVIDERS: Internal Medicine; Physician Assistant; Urology; Admitting Provider Internal Medicine; Emergency Provider Emergency Medicine; PCP Registered Nurse; Visit Provider Internal Medicine
PROC: 0T768DZ Dilation of Right Ureter with Intraluminal Device, Via Natural or Artificial Opening Endoscopic (ICD-10-PCS; CPT 52352; principal; 2024-07-06 14:30)
DX: N13.6 Pyonephrosis (principal); G93.41 Metabolic encephalopathy; N20.1 Calculus of ureter; Z68.41 Body mass index [BMI] 40.0-44.9, adult; N17.9 Acute kidney failure, unspecified; E11.9 Type 2 diabetes mellitus without complications; F41.1 Generalized anxiety disorder; F32.A Depression, unspecified; I10 Essential (primary) hypertension; G89.29 Other chronic pain; E87.6 Hypokalemia; M54.9 Dorsalgia, unspecified; N83.201 Unspecified ovarian cyst, right side; K21.9 Gastro-esophageal reflux disease without esophagitis; E66.01 Morbid (severe) obesity due to excess calories; Z90.49 Acquired absence of other specified parts of digestive tract; Z98.84 Bariatric surgery status; Z79.84 Long term (current) use of oral hypoglycemic drugs; Z20.822 Contact with and (suspected) exposure to COVID-19
CPT/HCPCS: 36415; 36600; 70450; 70496; 70498; 71045; 71260; 74018; 74177; 76775; 80053; 80202; 80307; 81001; 82077; 82805; 82948; 83036; 83605; 83690; 83735; 83880; 84145; 84484; 85018; 85025; 85610; 85730; 87040; 87086; 87637; 87641; 87651; 93005; 96365; 96366; 96367; 96375; 99285; A9270; C1758; C1769; C2617; G0378; J0692; J0780; J1650; J2060; J2405; J2470; J2704; J3010; J3370; J7030; J7120; P9041; Q9966; Q9967

== ENCOUNTER 2024-07-25 00:12 | Day surgery (SDC) | payer MEDICARE, SELFPAY ==
--- NOTE | 2024-07-24 14:25 | P.PNAN_ITS ---
Anes - Initial Pre Proc Eval Procedure: Operation Date: 07/25/24 10:30 Proposed Procedures p Cystoscopy, Right Ureteroscopy, Possible Right Retrograde Pyelogram, Possible Right Stone Extraction, Possible Right Stent Exchange, Possible Holmium Laser - Adrien Wisdom MD Date/Time: 07/24/24 14:25 Surgeon: Adrien Wisdom MD Pre Op Diagnosis: right ureteral stone Patient Data Age: 53 Gender: F Height: Weight: Allergies Allergy/AdvReac Type Severity Reaction Status Date / Time olanzapine (From Zyprexa) AdvReac Agitated Verified 07/25/24 09:08 trazodone AdvReac Hallucinati Verified 07/25/24 09:08 ng Home Medications ?Medication ?Instructions ?Recorded ?Confirmed ?Type bupropion HCl 150 mg tablet,12 hr 150 mg PO DAILY 04/18/21 07/24/24 History sustained-release hydrochlorothiazide 25 mg tablet 25 mg PO DAILY 04/18/21 07/24/24 History lorazepam 1 mg tablet 1 mg PO BID 04/18/21 07/24/24 History metformin 500 mg tablet See Rx Instructions .Route .COMPLEX 04/18/21 07/24/24 History venlafaxine 75 mg capsule,extended 75 mg PO DAILY 04/18/21 07/24/24 History release 24 hr zolpidem 10 mg tablet 10 mg PO HS sleep 04/18/21 07/24/24 History tirzepatide 2.5 mg/0.5 mL 12.5 mg subcut WEEKLY 06/12/23 07/24/24 History subcutaneous pen injector (Mounjamir) amlodipine 5 mg tablet 5 mg PO DAILY Hypertension 07/06/24 07/24/24 History estradiol 0.05 mg/24 hr semiweekly 0.075 mg transdermal .twice weekly 07/06/24 07/24/24 History transdermal patch (Marlys) gabapentin 100 mg capsule 100 mg PO TID 07/06/24 07/24/24 History hydroxyzine HCl 25 mg tablet 25 mg PO BID PRN anxiety 07/06/24 07/24/24 History ibuprofen 800 mg tablet 800 mg PO TID PRN pain 07/06/24 07/24/24 History lisinopril 40 mg tablet 40 mg PO DAILY Hypertension 07/06/24 07/24/24 History methocarbamol 750 mg tablet 750 mg PO TID PRN pain, muscle 07/06/24 07/24/24 History spasms metoprolol tartrate 100 mg tablet 100 mg PO BID 07/06/24 07/24/24 History pantoprazole 20 mg tablet,delayed 20 mg PO DAILY 07/06/24 07/24/24 History release progesterone micronized 200 mg 200 mg PO HS 07/06/24 07/24/24 History capsule cefdinir 300 mg capsule 300 mg PO Q12HR #9 caps 07/08/24 07/24/24 Rx Patient hx anesthesia problems: none Family hx anesthesia problems: none Results Review: All pre-operative results and documents have been reviewed as part of the pre- operative evaluation. [facility] Past Medical History Medical History Type 2 diabetes mellitus Chronic back pain Kidney stones Chronic GERD Hypertension Anxiety and depression Surgical History Surgical History History of gastric bypass History of ureter stent History of cholecystectomy Family History Family History Mother Alcohol abuse Sibling Alcohol abuse Other Family history non-contributory Social History Social History (Updated 07/06/24 @ 22:21 by Brenda Gomez PA-C) Social History: Surrogate medical decision maker: Miguellalita Evangelista, spouse. Code status: Full code. Smoking status: Never smoker Second hand tobacco smoke exposure: No Alcohol intake: never Substance use: never Substance use type: does not use Do You Feel Safe in your Home?: Yes Lack of Transportation: No Lack of Food: Never True Current Housing: I Have Housing Concerned About Future Housing: No Difficulty Paying Gas/Electric Bills: No Difficulty Paying for Meds: No Currently Unemployed: No Education: Associate Degree Difficulty w/ Childcare or Family Care: No Living arrangements: with family Additional living arrangements comments: Lives with , his 2 sons, and sister in [place]. 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 Spiritual care concerns: No Anes - Eval Final PreProcedure Day of Procedure 07/24/24 14:25 Patient weight: obese Heart: regular rate and rhythm Lungs: clear to auscultation Airway: Mallampati scale class 1 Neurological: alert and oriented Last oral intake: >/= 8 hours ASA classification: III Emergent: no Anesthetic plan: proceed Anesthesia type and monitoring: general LMA and standard monitoring Results Review: All pre-operative results and documents have been reviewed as part of the pre- operative evaluation. Informed Consent: The patient's anesthetic plan and its attendant risks and benefits were discussed with the patient/family/POA. Questions were solicited and answers provided to the satisfaction of the patient/family/POA.
[2024-07-24 15:08] VITALS: BMI 39.9
--- NOTE | 2024-07-24 15:09 | PC.NURSE ---
Report to the Outpatient Waiting Room, entrance under the green pavilion located off [facility], at time _0830_ on date _[id number]_. Planned Procedure Time: _1030_.? Time changes happen often and if your time is changed the preop area will call you the afternoon before. - You and your visitor will be asked to self-screen and do not enter if you have any COVID symptoms. Please call surgeon if you need to reschedule. - A mask is optional within the hospital at this time. Patients may have clear liquids (water, carbonated beverages, clear teas, apple juice) until 3 hours prior to surgery with a maximum of 20 ounces. - No food from midnight until time of surgery and no smoking. This includes no chewing gum, candy or mints. Take only the following medications with a SIP of water on the morning of surgery: ___Bupropion, Lorazepam, Venlafaxine, Amlodipine, Metoprolol, Gabapentin and Cefdinir DO NOT STOP ANY OF YOUR OTHER PRESCRIPTION MEDICATIONS PRIOR TO SURGERY EXCEPT THE FOLLOWING Medications to discontinue per physician ____Patient says she will hold Ibuprofen until after surgery. Date to take last dose Please no make-up, nail guamanian, hairspray, perfume, deodorant, or body powder the day of surgery.? No jewelry (including any body piercings) or valuables the day of surgery, leave them at home.? Please take a shower or bath the night before, or the morning of, surgery with an antibacterial soap.? Wear comfortable, loose fitting clothing.? - Jewelry must be removed prior to entering the operating room.? Rings and piercings that are not removed may be cut off. - The hospital will not accept responsibility for valuables.? - Please leave all valuables, including medications, at home the day of surgery. If you are going home after surgery, a licensed sales route driver helper must drive you home.? - NO public transportation without another adult if you receive anesthesia. - We recommend that an adult stay with you for 24 hours following discharge. - We also recommend that you do not drive, make important decision, drink alcoholic beverages, or take any drugs that were not prescribed by your health care provider for at least 24 hours after your discharge time. Follow any additional instructions given to you from your surgeon. Telephone instructions given to __Veronica___and asked if any additional questions and then verbalized understanding. Patient advised to call surgeon office or pre surgery nurse liaison [phone] if any additional questions.
[2024-07-25] VITALS (9 sets, daily range): BP systolic 85–113; BP diastolic 49–75; PULSE 60–94; RESP 14–16; TEMP 36.3; O2SAT 95–99
--- NOTE | ~2024-07-25 | XR_ITS ---
EXAMINATION: XR retrograde pyelo w/stent RT DATE: 07/25/2024 10:12 INDICATION: Right ureteral stone. TECHNIQUE: 4 intraoperative fluoroscopic views of the abdomen and pelvis were obtained. I was not pre sent. Fluoroscopy exposure time was 7 seconds. COMPARISON: Abdomen radiograph 07/08/2024, CT abdomen and pelvis 07/06/2024 FINDINGS: The artificial foliage arranger images demonstrate a right internal ureteral stent in expected position. The righ t-sided retrograde pyelogram demonstrates mild hydronephrosis. The final images demonstrate a right i nternal ureteral stent in expected position. IMPRESSION: 1. Mild right hydronephrosis. 2. New right internal ureteral stent in expected position. Reviewed, dictated and finalized at location A. ACCOUNTANT
--- NOTE | 2024-07-25 07:32 | WPDHPUPDATE1 ---
History and Physical Update Update Date/Time: 07/25/24 07:32 History and Physical has been reviewed, including an updated exam of the patient. There are NO changes in the patient's condition. Risks, benefits, and alternatives have been discussed and questions answered. Patient agrees to proceed with procedure.
[2024-07-25] MEDS: LACTATED RINGERS 1,000 ML 30 ML IV CONT (08:45)
[2024-07-25 09:05] LABS: Glucose Point of Care 105 mg/dl (65-105)
[2024-07-25] MEDS: ceFAZolin 2 GM/D5W 50 ML 2 GM/50 ML BAG IVPB (09:31)
[2024-07-25] MEDS: LIDOCAINE 2% GEL UROJET 10 ML PKG MUCOUS MEM (09:43)
--- NOTE | 2024-07-25 10:07 | W.PM.PROC2 ---
Procedure Note - Detailed Date of Procedure 07/25/24 Pre-op Diagnosis right ureteral stone Post-op Diagnosis Same Procedure Performed Cystoscopy, right retrograde, right ureteroscopy with holmium laser, stone extraction, right ureteral stent exchange 4.8 Vincentian contour Surgeon Adrien Wisdom MD Anesthesia General Description of Procedure Patient was taken to the operative suite correctly identified. Once anesthesia was obtained she was placed in dorsal lithotomy position and prepped and draped usual sterile fashion. Twenty-two Vincentian scope was inserted the bladder. The prior stent was grasped brought out to the meatus. Sensor wire was inserted. Rigid ureteral scope was inserted. The proximal ureteral stone was visualized. Using a 200 micron fiber we lasered the stone in multiple pieces. The largest were retrieved and sent for analysis. Reinspection revealed no significant stone burden. Pyelogram was then performed to confirm placement of the stent. 4.8 Vincentian contour stent was then placed with the proximal end coiled in the renal pelvis and the distal in the bladder. Bladder was drained. 2% viscous lidocaine was inserted into the bladder. Patient was taken recovery stable condition. She will follow-up in a week's time for stent removal. This completes dictation. Please send a copy of op note to my office. Estimated Blood Loss 0 Drains Yes Packing No Pathology Yes Complications No immediate complications Condition Stable Disposition PACU
[2024-07-25 10:21] LABS: Glucose Point of Care 100 mg/dl (65-105)
[2024-07-25] MEDS: fentaNYL CITRATE INJ (*CRX) 100 MCG/2 ML VIAL 25 MCG IV PUSH ×4 (10:33→10:54)
[2024-07-25] MEDS: oxyBUTYnin CHLORIDE 5 MG TABLET PO (11:25)
[2024-07-25] MEDS: oxyCODONE HCL (*CRX) 5 MG TAB IR PO (12:00)
== END 2024-07-25 12:40 | disposition home or self-care (01) ==
PROVIDERS: PCP Registered Nurse; Visit Provider Urology
PROC: (CPT 52352; principal; 2024-07-25 10:30)
DX: N20.1 Calculus of ureter (principal); I10 Essential (primary) hypertension; E11.9 Type 2 diabetes mellitus without complications; K21.9 Gastro-esophageal reflux disease without esophagitis; F41.8 Other specified anxiety disorders; M54.50 Low back pain, unspecified; G89.29 Other chronic pain; E66.9 Obesity, unspecified; Z68.38 Body mass index [BMI] 38.0-38.9, adult; Z79.84 Long term (current) use of oral hypoglycemic drugs; Z79.1 Long term (current) use of non-steroidal anti-inflammatories (NSAID); Z79.85 Long-term (current) use of injectable non-insulin antidiabetic drugs; Z98.890 Other specified postprocedural states; Z90.49 Acquired absence of other specified parts of digestive tract; Z98.84 Bariatric surgery status; Z96.0 Presence of urogenital implants
CPT/HCPCS: 52356; 74420; 82365; 82948; 88300; A9270; C1758; C1769; C2617; J0690; J1100; J2003; J2250; J2405; J2704; J3010; J7120; Q9966

== ENCOUNTER 2024-10-14 13:34 | Outpatient (CLI) | payer MEDICARE, SELFPAY ==
--- NOTE | 2024-10-14 | ECHO_ITS ---
Patient Info Name: Veronica Evangelista Age: 54 years : 1970 Gender: Female Ht: 64 in Wt: 230 lbs BSA: 2.22 m2 HR: 102 bpm BP: 127 / 104 mmHg Heart Rhythm: Sinus Rhythm Technical Quality: Fair Exam Date: 10/14/2024 1:51 PM Exam Location: Echo Lab Patient Status: Outpatient Admit Date: 10/14/2024 Staff Ordering Physician: ELOYUN Wrapper Opener: Olive Villavicencio RDCS Attending Provider: YUN GONZALEZ Exam Type: CA echo dop color flow w con Study Info Indications I10 - Essential (primary) hypertension R00.0 - Tachycardia, unspecified Complete two-dimensional, color flow and Doppler transthoracic echocardiogram is performed with contrast to opacify the left ventricle and to improve the deliniation of the left ventricle endocardial borders. Contrast/Agitated Saline Contrast/Ag. Saline: Definity Amount: 2.00 ml Summary 1. Left ventricular chamber dimension is normal. 2. Left ventricular systolic function is normal, estimated at 65-70%. 3. There is mildly increased left ventricular wall thickness. 4. The left ventricular diastolic function is grade I diastolic dysfunction. 5. Right ventricular systolic function is normal. 6. Small posterior pericardial effusion. 7. No significant valvular disease. Left Ventricle Left ventricular chamber dimension is normal. Left ventricular systolic function is normal, estimated at 65-70%. There is mildly increased left ventricular wall thickness. The left ventricular diastolic function is grade I diastolic dysfunction. Right Ventricle Right ventricular chamber dimension is normal. Right ventricular systolic function is normal. Left Atria Left atrial chamber dimension is normal. Right Atria Right atrial chamber dimension is normal. Atrial Septum Intact interatrial septum visualized by color flow imaging. Aortic Valve The aortic valve is probable trileaflet. There is no aortic valve regurgitation. Pulmonic Valve The pulmonic valve is not well visualized. There is no pulmonic regurgitation. Mitral Valve There is trace mitral valve regurgitation. Tricuspid Valve There is trace tricuspid valve regurgitation. Pericardium/Pleural Small posterior pericardial effusion. Inferior Vena Cava Normal inferior vena cava with >50% collapse upon inspiration consistent with normal right atrial pressure, 3 mmHg. Aorta The aortic root size at the sinus of Valsalva is normal. Left Ventricular Outflow Tract Name Value Normal LVOT 2D LVOT Diameter 2.04 cm LVOT Doppler LVOT Peak Gradient 3 mmHg LVOT Mean Gradient 1 mmHg LVOT VTI 13.78 cm LVOT VTI/AV VTI Ratio 0.84 LVOT Stroke Volume 44.96 ml LVOT CO 4.36 l/min LVOT CI 1.96 L/min/m2 Pulmonic Valve Name Value Normal RVOT Doppler RVOT Peak Gradient 1 mmHg PV Doppler PV Peak Gradient 3 mmHg Mitral Valve Name Value Normal MV Doppler MV Decel Mckenzie 595.26 cm/s2 MV PHT 0 s MV Area (PHT) 9.72 cm2 4.00-5.00 MV Diastolic Function MV E Peak Velocity 46.44 cm/s MV A Peak Velocity 73.70 cm/s MV E/A 0.63 MV Decel Time 0 s MV Annular TDI MV E/e' (Septal) 10.61 <=8.00 MV E/e' (Lateral) 10.74 <=8.00 MV E/e' (Average) 10.67 Tricuspid Valve Name Value Normal TV Regurgitation Doppler TR Peak Velocity 173.51 cm/s TR Peak Gradient 12 mmHg Estimated PAP/RSVP RA Pressure 3 mmHg <=5 PA Systolic Pressure 15 mmHg <36 RV Systolic Pressure 15 mmHg <36 Aorta Name Value Normal Ascending Aorta Ao Root Diameter (MM) 3.10 cm Ao Root Diam Index (MM) 1.39 cm/m2 Aortic Valve Name Value Normal AV Doppler AV Peak Velocity 109.75 cm/s AV Peak Gradient 5 mmHg AV Mean Gradient 3 mmHg AV VTI 16.48 cm AV Area (Cont Eq VTI) 2.73 cm2 >=3.00 AV Area (Cont Eq Riley) 2.46 cm2 AV Regurgitation 2D LVOT Area 3.26 cm2 Ventricles Name Value Normal LV Dimensions 2D/MM IVS Diastolic Thickness (2D) 0.72 cm 0.60-1.00 LVID Diastole (2D) 4.98 cm 3.80-5.20 LVIW Diastolic Thickness (2D) 0.61 cm 0.60-0.90 LVID Systole (2D) 3.42 cm 2.20-3.50 LVOT Diameter 2.04 cm LV Mass (2D Cubed) 107.45 g 67.00-162.00 LV Mass Index (2D Cubed) 0.00 g/cm2 0.00-0.01 Relative Wall Thickness (2D) 0.25 LV Fractional Shortening/Ejection Fraction 2D/MM LV Fractional Shortening (2D) 31 % 27-45 LV EF (2D Teicholz) 59 % 54-74 LV Diastolic Volume (4C MOD) 38.75 ml LV EF (4C MOD) 64 % LV Diastolic Volume (2C MOD) 40.68 ml LV EF (2C MOD) 67 % LV Diastolic Volume (BP MOD) 40.93 ml 46.00-106.00 LV Diastolic Volume Index (BP MOD) 0.02 l/m2 0.03-0.06 LV Systolic Volume (BP MOD) 14.33 ml 14.00-42.00 LV Systolic Volume Index (BP MOD) 0.01 l/m2 0.01-0.02 LV EF (BP MOD) 65 % 54-74 LV Diastolic Length (4C) 8.27 cm LV Systolic Length (4C) 6.56 cm LV Stroke Volume (4C MOD) 24.85 ml Atria Name Value Normal LA Dimensions LA Dimension (MM) 3.64 cm 2.70-3.80 LA Volume (4C A-L) 31.88 ml LA Volume (BP A-L) 28.41 ml RA Dimensions RA Area (4C) 11.20 cm2 <=18.00 Report Signatures
[2024-10-14] MEDS: PERFLUTREN LIPID MICROSPHERES 1.5 ML VIAL DILUTED TO 10 ML TOTAL VOLUME IV PUSH (14:40)
--- OUTSIDE RECORDS SUMMARY | 2024-10-14 15:47 | XMS_ITS | Clinical Summary ---
Author Organization [facility] Medical [facility] [address] [place] [id number] Care Team Providers Care Switchboard Receptionist Name Role Phone Keyonna [place] Primary Care Provider + Gasper Ochoa MD Unavailable Allergies Active Allergy Reactions Criticality Noted Date Comments Trazodone Hallucinations Medium 08/28/2019 Medications hydroCHLOROthi azide (HYDRODIURIL) 25 mg tablet Take 1 tablet (25 mg total) by mouth every morning 0 8 Active lisinopril (PRINIVIL,ZEST RIL) 40 mg tablet Take 0.5 tablets (20 [...] Powder) 425 mg capsule Take by mouth Active mirtazapine (REMERON) 15 mg tablet Take 1 tablet (15 mg total) by mouth nightly Active progesterone (PROMETRIUM) 200 mg capsule Take 1 capsule (200 mg total) by mouth daily 4 Active diphenhydrAMIN E-acetaminophe n (TYLENOL PM) 25-500 mg tablet Take 1 tablet by mouth daily Active amLODIPine (NORVASC) 5 mg tablet Take 1 tablet (5 mg total) by mouth daily 4 Active Marlys 0.075 mg/[address] 1 patch on the skin 2 (two) times a week 4 Active gabapentin (NEURONTIN) 100 mg capsuleIndicat ions:Chronic bilateral low back pain without sciatica TAKE 1 CAPSULE BY MOUTH THREE TIMES DAILY 180 capsule 1 4 Active tirzepatide (Mounjaro) 15 mg/0.5 mL pen injector injectionIndic ations:Control led type 2 diabetes mellitus without complication, without long-term current use of insulin (HCC) Inject 0.5 mL (15 mg total) under the skin every 7 days 6 mL 3 5 Active tirzepatide (Mounjaro) 12.5 mg/0.5 mL pen injectorIndica tions:Controll ed type 2 diabetes mellitus without complication, without long-term current use of insulin (HCC) Inject 12.5 mg under the skin every 7 days 6 mL 3 4 025 Discontinued Active Problems Problem Noted Date Diagnosed Date Class 2 obesity due to exces s calories without serious comorbidity with body mass index (BMI) of 39.0 to 39.9 in adult 07/01/2024 Abnormal weight gain 08/28/2023 Controlled type 2 diabetes m ellitus without complication, without long-term current use of insulin 08/28/2023 Overview (08/28/2023): chronic. Uncontrolled. Increase Mounjaro 7.5mg weekly Abnormal platelets 03/04/2020 Leukocytosis (leucocytosis) 08/26/2019 Reactive thrombocytosis 08/26/2019 [...] (06/26/2018): Added automatically from request for surgery [id number] Calculus of gallbladder with acute cholecystitis without obstruction 06/20/20182018 Encounters Date Type Department Care Team Description 09/16/2024 Telephone [facility] Family Medicine at [address] [place] [address] Keyonna [place] PA Medication Problem 08/20/2024 9:30 AM [facility] Office Visit [facility] Orthopedics and Sports Medicine [address] [place] [address] [address] [place] [address] Valentina Curtis NP Myalgia, other site (Primary Dx); Chronic neck and back pain; Arthropathy of cervical facet joint, multilevel bilateral; 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 cervical vertebra; Spondylolisthesis of cervical region- grade 1 anterolisthesis of C3 on C4 and grade 1 retrolisthesis of C5 on C6. Grade 1 anterolisthesis of C7 on T1. 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 Not on file Not on leeann e Obstetrics History Last Filed Vital Signs Vital Sign Reading Time Taken Comments Blood Pressure 102/72 07/01/2024 11:25 AM [facility] [place] Pulse 112 07/01/2024 11:25 AM [facility] [place] Temperature 36 C (96.8 F) 07/01/2024 11:25 AM [facility] Respiratory Rate 18 03/21/2024 10:53 AM CDT Oxygen Saturation 96% 07/01/2024 11:25 AM [facility] [place] Inhaled Oxygen Concentration - - Weight 107.5 kg (237 lb) 08/20/2024 9:16 AM [facility] [place] Height 165.1 cm (5' 5 ) 08/20/2024 9:16 AM [facility] Body Mass Index 39.44 08/20/2024 9:16 AM [facility] Plan of Treatment Health Maintenance Due Date [...] - 2023-2 5 season) 2024 11/20/2020, 10/19/2020 Depression Screening 05/29/2024 05/29/2023, 05/29/20 23 Lipid Panel 11/22/2024 11/23/2023, 09/20, 07/11/2018, Additional history exists DTaP/Tdap/Td Vaccine (3 - Td or Tdap) 04/25/2026 04/25/2016, 04/25/2016 Pneumococcal vaccine <65 (3 of 3 - PCV20 or PCV21) 05/04/2026 05/04/2021, 05/04/2021, 04/22/2019 Influenza Vaccine Completed 04/06/2024, , 05/30/2022, Additional history exists Procedures Procedure Name Priority Date/Time Associated Diagnosis Comments LA INJECTION SINGLE/SALES ORDER COORDINATOR TRIGGER POINT 1/2 MUSCLES Routine 08/20/2024 9:30 AM [facility] Myalgia, other site COMPREHENSIVE METABOLIC PANEL Routine 07/11/2018 8:19 AM [facility] Intestinal malabsorption, unspecified type Bariatric surgery status HEMOGLOBIN A1C Routine 07/11/2018 8:19 AM [place] Intestinal malabsorption, unspecified type Bariatric surgery status LIPID PANEL Routine 07/11/2018 8:19 AM [facility] Intestinal malabsorption, unspecified type Bariatric surgery status from Last 3 Months or Most Recently Relevant to Health Maintenance Results * LA INJECTION SINGLE/SALES ORDER COORDINATOR TRIGGER POINT 1/2 MUSCLES (08/20/2024 9:30 AM [facility] [place]) Narrative Valentina Curtis NP - 08/20/2024 9:30 AM [facility] [place] Valentina Curtis NP 08/22/2024 6:50 PM Trigger Point Injection Performed by: Valentina Curtis NP Authorized by: Valentina Curtis NP Consent Given by: Patient Site marked: the procedure site was marked Timeout: prior to procedure the correct patient, procedure, and site was verified Consent obtained:: Verbal Risks discussed, including, but not limited to:: Pain Alternatives discussed:: Alternative treatment Site/side marked: Yes Indications: Pain and myalgia Location: L cervical paraspinal, L lumbar paraspinal and R lumbar paraspinal Local anesthetic: Ethyl chloride spray Ultrasound guidance: No Needle size: 25 G Number of muscles: 1 or 2 Approach: Posterior Medications: 3 mL lidocaine 10 mg/mL (1 %); 120 mg triamcinolone 40 mg/mL Patient tolerance: Patient tolerated the procedure well with no immediate complications us Valentina Curtis TAKER OFF DRYING KILN IN CLINIC/BEDSIDE ORDERABLE S Final Result * Hemoglobin A1c (07/11/2018 8:19 AM [facility]) Hgb A1C 5.1 <5.7 % of total Hgb [facility] [place] Comment: For the purpose of screening for the presence of diabetes: <5.7% Consistent with the absence of diabetes 5.7-6.4% Consistent with increased risk for diabetes (prediabetes) > or =6.5% Consistent with diabetes This assay result is consistent with a decreased risk of diabetes. Currently, no consensus exists regarding use of hemoglobin A1c for diagnosis of diabetes in children. According to [place] Diabetes Association (ADA) guidelines, hemoglobin A1c <7.0% represents optimal control in non- diabetic patients. Different metrics may apply to specific patient populations. Standards of Medical Care in Diabetes(ADA). Blood specimen (specimen) 07/11/2018 8:19 AM [facility] 07/11/2018 8:20 AM [facility] Narrative [facility] - 07/15/2018 8:57 AM [place] FASTING:YES FASTING: YES Resulting Agency Comment Performing Organization Information: Site ID: [place] Name: [employer] Address: [address] [place] [address] Director: Servando Cervantes D.O., MPH us Elli Hernandez MD PhD LAB BLOOD ORDERABLES Kiley garrett Result [facility] [place] * (ABNORMAL) Lipid panel (07/11/2018 8:19 AM [place]) Cholesterol 139 <200 mg/dL [facility] [place] HDL 38(L) >50 mg/dL [facility] [place] Triglycerides 204(H) <150 mg/dL [facility] [place] LDL 71 mg/dL (calc) [facility] Comment: Reference range: <100 Desirable range <100 mg/dL for primary prevention; <70 mg/dL for patients with CHD or diabetic patients with > or = 2 CHD risk factors. LDL-C is now calculated using the Carlos Enrique calculation, which is a validated novel method providing better accuracy than the Friedewald equation in the estimation of LDL-C. Deep SS et al. JAMAR. 2013;310(30): 8736-7472 (http://education.It[place] Pellets/faq/HIV566) Chol/HDL ratio 3.7 <5.0 (calc) [facility] [place] Non-HDL, (LDL+VLDL) 101 <130 mg/dL (calc) [facility] Comment: For patients with diabetes plus 1 major ASCVD risk factor, treating to a non-HDL-C goal of <100 mg/dL (LDL-C of <70 mg/dL) is considered a therapeutic option. Blood specimen (specimen) 07/11/2018 8:19 AM [place] 07/11/2018 8:20 AM [place] Narrative [facility] - 07/15/2018 8:57 AM [place] FASTING:YES FASTING: YES Resulting Agency Comment Performing Organization Information: Site ID: [place] Name: [facility] Address: [address] [facility] [place] [address] Director: Servando Cervantes D.O., MPH us Elli Hernandez MD PhD LAB BLOOD ORDERABLES Kiley garrett Result [facility] [place] * Comprehensive metabolic panel (07/11/2018 8:19 AM [place]) Glucose 92 65 - 99 mg/dL [facility] Comment: Fasting reference interval BUN 21 7 - 25 mg/dL [facility] Creatinine 0.79 0.50 - 1.10 mg/dL [facility] [place] eGFR NON-AFR. IRANIAN 88 > OR = 60 mL/min/1. 73m2 [...] [place] Blood specimen (specimen) 07/11/2018 8:19 AM [place] 07/11/2018 8:20 AM [place] Narrative [facility] - 07/15/2018 8:57 AM [place] FASTING:YES FASTING: YES Resulting Agency Comment Performing Organization Information: Site ID: [id number] Name: [facility] Address: [address] [facility] [place] [address] Director: Servando Cervantes D.O., MPH us Elli Hernandez MD PhD LAB BLOOD ORDERABLES Kiley garrett Result [facility] from Last 3 Months or Most Recently Relevant to Health Maintenance Insurance [employer] MEDIC[place] [address] [facility] MEDIC[facility] HMO [facility] MEDICARE [employer] [facility] Address: [address] [address] [place] [address] Care Teams Switchboard Receptionist Relationship Specialty Start Date End Date Keyonna [place] PA PCP - General Nurse Practitioner 06/20/18 Gasper Ochoa MD [address] [facility] [address] Consulting Physician Pain Management 08/31/21
--- OUTSIDE RECORDS SUMMARY | 2024-10-14 15:47 | XMS_ITS | Encounter Summary ---
Author Organization [facility] Address [address] [place] [id number] Care Team Providers Care Veterinarian Assistant Name Role Phone Keyonna [place] Primary Care Provider [phone] Encounter Details Date Type Department Care Team (Latest Contact Info) Description 10/03/2024 Scan HEALTH INFO SRVCS Scanned, Doc Med [...] Date Recorded Patient Health Questionnaire-2 Score 0 08/08/2024 Comments No Sex and Gender Information Value Date Recorded Sex Assigned at Female 08/08/2024 10:41 AM PRESSED OR BLOWN GLASS WORKER Legal Sex Female 5:47 PM CDT Gender Identity Female 07/17/2022 10:27 AM PRESSED OR BLOWN GLASS WORKER Sexual Orientation Straight 07/17/2022 10 :27 AM PRESSED OR BLOWN GLASS WORKER documented as of this encounter Plan of Treatment Upcoming Encounters Date Type Department Care Team ( Contact Info) Description 11/18/2024 9:00 AM CDT Office Visit [facility] Family & Internal Medicine [address] [address] Keyonna [place] APNP [address] [place] [address] documented as of this encounter Visit Diagnoses Not on filedocumented in this encounter Additional Health Concerns Assessment Noted Time PHQ-9 Depression Total Score: 22 07/29/ 020 3:46 PM PRESSED OR BLOWN GLASS WORKER documented as of this encounter Care Teams Veterinarian Assistant Relationship Specialty Start Date End Date Keyonna [place] APNP [address] [place] [phone] PCP - General NURSE PRACTITIONER 05/06/18 documented as of this encounter
--- OUTSIDE RECORDS SUMMARY | 2024-10-14 15:47 | XMS_ITS | Referral Summary ---
Author Organization [facility] Medical [facility] [address] [place] [address] Care Team Providers Care Paddock Judge Name Role Phone Keyonna Armstrong Primary Care Provider + Gasper Ochoa MD Unavailable Encounters Date Type Department Care Team Description 09/16/2024 Telephone [facility] at [address] [place] [address] Keyonna Armstrong PA Medication Problem 08/20/2024 9:30 AM CONSTRUCTION TECH Office Visit [facility] [address] [place] [address] [address] [place] [address] Valentina Curtis NP Myalgia, other [...] on L3, L3 on L4 08/05/2024 Telephone [facility] at [address] [place] [address] Mark Wheat MD from Last 3 Months Allergies Active Allergy [...] (06/26/2018): Added automatically from request for surgery [id number] Calculus of gallbladder with acute cholecystitis without obstruction 06/20/20182018 Immunizations Immunization Administration Dates Next Due DTaP, [...] on file Legal Sex Female 6:41 PM CONSTRUCTION TECH Gender Identity Not on file Sexual Orientation Not on file 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 Not on leeann e Last Filed Vital Signs Vital Sign Reading Time Taken Comments Blood Pressure 102/72 07/01/2024 11:25 AM CONSTRUCTION TECH Pulse 112 07/01/2024 11:25 AM CONSTRUCTION TECH Temperature 36 C (96.8 F) 07/01/2024 11:25 AM CONSTRUCTION TECH Respiratory Rate 18 03/21/2024 10:53 AM CDT Oxygen Saturation 96% 07/01/2024 11:25 AM CONSTRUCTION TECH Inhaled Oxygen Concentration - - Weight 107.5 kg (237 lb) 08/20/2024 9:16 AM CONSTRUCTION TECH Height 165.1 cm (5' 5 ) 08/20/2024 9:16 AM CONSTRUCTION TECH Body Mass Index 39.44 08/20/2024 9:16 AM CONSTRUCTION TECH Plan of Treatment Not on file Procedures Procedure Name Priority Date/Time Associated Diagnosis Comments NH INJECTION SINGLE/SYRUP MIXER TRIGGER POINT 1/2 MUSCLES Routine 08/20/2024 9:30 AM CONSTRUCTION TECH Myalgia, other site COMPREHENSIVE METABOLIC PANEL Routine 07/11/2018 8:19 AM CONSTRUCTION TECH Intestinal malabsorption, unspecified type Bariatric surgery status HEMOGLOBIN A1C Routine 07/11/2018 8:19 AM CONSTRUCTION TECH Intestinal malabsorption, unspecified type Bariatric surgery status LIPID PANEL Routine 07/11/2018 8:19 AM CONSTRUCTION TECH Intestinal malabsorption, unspecified type Bariatric surgery status from Last 3 Months or Most Recently Relevant to Health Maintenance Results * NH INJECTION SINGLE/SYRUP MIXER TRIGGER POINT 1/2 MUSCLES (08/20/2024 9:30 AM CONSTRUCTION TECH) Narrative Valentina Curtis NP - 08/20/2024 9:30 AM CONSTRUCTION TECH Valentina Curtis NP 08/22/2024 6:50 PM Trigger [...] with no immediate complications us Valentina Curtis REAMING MACHINE OPERATOR IN CLINIC/BEDSIDE ORDERABLE S Final Result * Hemoglobin A1c (07/11/2018 8:19 AM CONSTRUCTION TECH) Hgb A1C 5.1 <5.7 % of total Hgb [facility] [place] Comment: For the purpose of screening for the presence of diabetes: <5.7% Consistent with the absence of diabetes 5.7-6.4% Consistent with increased risk for diabetes (prediabetes) > or =6.5% Consistent with diabetes This assay result is consistent with a decreased risk of diabetes. Currently, no consensus exists regarding use of hemoglobin A1c for diagnosis of diabetes in children. According to [place] Diabetes Association (ADA) guidelines, hemoglobin A1c <7.0% represents optimal control in non- diabetic patients. Different metrics may apply to specific patient populations. Standards of Medical Care in Diabetes(ADA). Blood specimen (specimen) 07/11/2018 8:19 AM CONSTRUCTION TECH 07/11/2018 8:20 AM CONSTRUCTION TECH Narrative [facility] - 07/15/2018 8:57 AM CONSTRUCTION TECH FASTING:YES FASTING: YES Resulting Agency Comment Performing Organization Information: Site ID: [id number] Name: [facility] Address: [address] [address] Director: Servando Cervantes D.O., MPH Elli Hernandez MD PhD LAB BLOOD ORDERABLES Kiley garrett Result [facility] [place] * (ABNORMAL) Lipid panel (07/11/2018 8:19 AM CONSTRUCTION TECH) Cholesterol 139 <200 mg/dL [facility] [place] HDL 38(L) >50 mg/dL [facility] [place] Triglycerides 204(H) <150 mg/dL [facility] [place] LDL 71 mg/dL (calc) [facility] [place] Comment: Reference range: <100 [...] LDL-C. Deep SS et al. JAMAR. 2013;310(19): 1130-1404 (http://education.BABYBOOM.ru/faq/SMH673) Chol/HDL ratio 3.7 <5.0 (calc) [facility] [place] Non-HDL, (LDL+VLDL) 101 <130 mg/dL (calc) [facility] [place] Comment: For patients with diabetes plus 1 major ASCVD risk factor, treating to a non-HDL-C goal of <100 mg/dL (LDL-C of <70 mg/dL) is considered a therapeutic option. Blood specimen (specimen) 07/11/2018 8:19 AM CONSTRUCTION TECH 07/11/2018 8:20 AM CONSTRUCTION TECH Narrative [facility] - 07/15/2018 8:57 AM CONSTRUCTION TECH FASTING:YES FASTING: YES Resulting Agency Comment Performing Organization Information: Site ID: [id number] Name: [facility] Address: [address] [place] [address] [place] [address] Director: Servando Cervantes D.O. MPH Elli Hernandez MD PhD LAB BLOOD ORDERABLES Kiley garrett Result [facility] [place] * Comprehensive metabolic panel (07/11/2018 8:19 AM CONSTRUCTION TECH) Pathologist [facility] [place] Glucose 92 65 - 99 mg/dL [facility] [place] Comment: Fasting reference interval BUN 21 7 - 25 mg/dL [facility] [place] Creatinine 0.79 0.50 - 1.10 mg/dL [facility] [place] eGFR NON-AFR. GABONESE 88 > OR = 60 mL/min/1. 73m2 [facility] [place] EGFR 102 > OR [...] [place] Blood specimen (specimen) 07/11/2018 8:19 AM CONSTRUCTION TECH 07/11/2018 8:20 AM CONSTRUCTION TECH Narrative [facility] - 07/15/2018 8:57 AM CONSTRUCTION TECH FASTING:YES FASTING: YES Resulting Agency Comment Performing Organization Information: Site ID: [id number] Name: Gerry Hutchison Address: [address] [place] [address] [place] [phone] Director: Servando Cervantes D.O., MPH Elli Hernandez MD PhD LAB BLOOD ORDERABLES Kiley garrett Result [facility] [place] from Last 3 Months or Most Recently Relevant to Health Maintenance Insurance [employer] CHOICE MEDICARE PPO HU[employer]NA MEDICARE HMO UHC MEDICARE [facility] Address: [address] [address] [place] [address] Care Teams Paddock Judge Relationship Specialty Start Date End Date Keyonna Armstrong PA PCP - General Nurse Practitioner 06/20/18 Gasper Ochoa MD [address] [facility], [address] [address] Consulting Physician Pain Management 08/31/21
--- OUTSIDE RECORDS SUMMARY | 2024-10-14 15:48 | XMS_ITS | Clinical Summary ---
Author Organization [facility] Address [address] [place] [address] Care Team Providers Care Official Court Reporter Name Role Phone Keyonna Armstrong APRN, CNP Primary Care Provider + Allergies Active Allergy [...] AND 2 TABLETS AT BEDTIME 8 Active hydroCHLOROthi azide 25 MG Tablet Take 1 Tablet by mouth daily. 8 Active venlafaxine (EFFEXOR-XR) 75 MG CAPSULE SR 24 HR TAKE 1 CAPSULE BY MOUTH EVERY MORNING AND 2 CAPSULES EVERY EVENING 0 Active Cholecalcifero l 25 mcg Capsule Vitamin D3 25 mcg [...] Take 5 mg by mouth. 3 Active pantoprazole (PROTONIX) 40 MG Tablet Delayed [...] Tablet by mouth 2 times daily. Active cyclobenzaprin e (FLEXERIL) 10 MG Tablet Take 1 Tablet [...] Tablet Take 50 mg by mouth. Active diphenhydrAMIN E-acetaminophe n (BENADRYL PM) 25-500 MG Tablet Take 1 Tablet by mouth daily. Active buPROPion, Smoking Deter, (ZYBAN) 150 MG TABLET SR 12 HR Take 150 mg by mouth 2 times daily. Active Mounjaro 12.5 MG/0.5ML Solution Pen-injector 12.5 mg by Subcutaneous route. 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 Gender Identity Not on file Sexual Orientation Not on file Last Filed Vital Signs Vital Sign Reading Time Taken Comments Blood Pressure 128/64 03/31/2024 9:59 AM CDT Pulse 90 03/31/2024 9:59 AM CDT Temperature 36.3 C (97.3 F) 03/31/2024 9:59 AM CDT Respiratory Rate 18 03/31/2024 9:59 AM CDT Oxygen Saturation 98% 03/31/2024 9:59 AM CDT Inhaled Oxygen Concentration - - Weight 111.1 kg (245 lb) 03/31/2024 9:59 AM CDT Height 165.1 cm (5' 5 ) 03/31/2024 9:59 AM CDT Body Mass Index 40.77 03/31/2024 9:59 AM CDT Plan of Treatment Upcoming Encounters Date Type Department Care Team (Late st Contact Info) Description 03/30/2025 9:45 AM CDT Office Visit [facility] [address] [address] Woody Horvath MD [address] [facility] [address] [place] [address] Health Maintenance Due Date Last Done Comments Hepatitis C Virus (HCV) Screening 1970 Mammogram 1970 Hepatitis B Immunization (1 of 3 - 19+ 3-dose series) 1987 Pap Smear 1989 Cervical Cancer Screening (CCS) 1998 HPV/Cotest 1998 Cologuard 2018 Immunochemical Fecal Occult Blood 2018 Zoster Immunization (2 of 2) 08/19/2023 06/24/2023 Influenza Immunization (#1) 2024 12/0 09/2022, 05/30/2022, 05/04/2021, Additional history exists SARS-COV-2 Immunization ( season) 2024 05/30/2022, 11/20/2020, 10/19/2020 Pneumococcal Immunization (50+ years) (3 of 3 - PCV20 or PCV21) 05/04/2026 05/04/2021, 05/04/2021, 04/22/2019 Colonoscopy 01/11/2030 01/12/2020 Colorectal Cancer Screening 01/11/2030 Respiratory Syncytial Virus (RSV) Immunization (Adult) (1 - 1-dose 75+ series) 2043 01/12/2020 DTaP/Tdap/Td Immunization Discontinued 04/25/2016, 10/2015 TdaP Immunization Completed 04/25/2016 Pneumococcal Immunization Combined Discontinued 05/04/2021, 05/04/2021, 04/22/2019 Meningococcal Immunization (ACWY) Aged Out No longer eligible based on patient's age to complete this topic Rotavirus Immunization Aged Out No lo nger eligible based on patient's age to complete this topic Insurance MEDICARE C [facility] Care Teams Official Court Reporter Relationship Specialty Start Date End Date Keyonna Armstrong APRN, MERCHANDISE MANAGER [address] [place] [address] PCP - General Family Medicine 10/19/22
--- OUTSIDE RECORDS SUMMARY | 2024-10-14 15:48 | XMS_ITS | Clinical Summary ---
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 INSTALLER Primary Care Provider + Allergies No known active allergies Medications zolpidem (AMBIEN) 10 mg tablet 08/07/2019 Active venlafaxine (EFFEXOR XR) 75 mg Extended Release 24 hour capsule 08/03/2019 Active pantoprazole (PROTONIX) 40 mg Tablet, Delayed Release (E.C.) 08/06/2019 Acti ve ondansetron (ZOFRAN) 4 mg Tablet TAKE 1 TABLET BY MOUTH EVERY 6 HOURS NEEDED FOR NAUSEA/VOMI TING 09/01/2018 Active metoprolol succinate (TOPROL XL) 100 mg Extended Release 24 hour tablet 07/07/2019 Active metFORMIN (GLUCOPHAGE) 500 mg tablet 06/26/2019 Active LORazepam (ATIVAN) 1 mg tablet 08/26/2019 Active lisinopril (PRINIVIL) 40 mg tablet 07/07/2019 Active ENPRESSE 50-30 (6)/75-40 (5)/125-30(10) tablet 06/05/2019 Active hydroCHLOROthiaz tan 25 mg tablet 08/04/2019 Ac tive buPROPion HCL (WELLBUTRIN SR) 150 mg Sustained [...] at Not on file 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 Gender Identity Not on file Sexual Orientation Not on file Last Filed Vital Signs Vital Sign Reading Time Taken Comments Blood Pressure 104/74 08/26/2019 2:20 PM BILLET DRILLER Pulse 105 08/26/2019 2:20 PM BILLET DRILLER Temperature 36.6 C (97.9 F) 08/26/2019 2:20 PM BILLET DRILLER Respiratory Rate - - Oxygen Saturation 98% 08/26/2019 2:20 PM BILLET DRILLER Inhaled Oxygen Concentration - - Weight 135.3 kg (298 lb 3.2 oz) 08/26/2019 2:20 PM BILLET DRILLER Height 165.1 cm (5' 5 ) 08/26/2019 2:20 PM BILLET DRILLER Body Mass Index 49.62 08/26/2019 2:20 PM BILLET DRILLER Plan of Treatment Health Maintenance Due Date Last Done Comments Pre-Diabetes and Diabetes Screening 1970 HEPATITIS B VACCINES (1 of 3 - 19+ 3-dose series) 1987 PAP SMEAR 1989 CERVICAL CANCER SCREENING 1998 HPV/Cotest 1998 PAP SMEAR 1998 BREAST CANCER SCREENING 2008 FIT-DNA Q 3 years 2013 FIT/FOBT Q 1 year 2013 Flex Sig/CT Colonography Q 5 years 2013 ZOSTER VACCINE (2 of 2) 08/19/2023 06/24/2023 INFLUENZA VACCINE (#1) 2024 05/19/2020, 2018 DTAP/TDAP/TD VACCINES (3 - Td or Tdap) 04/25/2026, 04/25/2016 COLORECTAL SCREENING 01/11/2030 01/12/2020 Colorectal Cancer Screening 01/11/2030 Care Teams Can Labeler Relationship Specialty Start Date End Date Keyonna Armstrong NP [address] [place] [phone] PCP - General NURSE PRACTITIONER 08/26/19
--- OUTSIDE RECORDS SUMMARY | 2024-10-14 15:48 | XMS_ITS ---
Author Organization [facility] Address [address] [facility] [address] [place] [address] Care Team Providers Care Director Of Public Health Name Role Phone Patti HERRING, Keyonna Primary Care Provider UnavailNayla Jones Unavailable [phone] Arash Wei Unavailable [phone] Results Component Value Reference Range Notes UDT Reviewed date:08/15/2024 03:24:54 PM Interpretation: Performing Lab: Notes/Report: THC N 0 - 50 ng/ml Cocaine N 0 - 300 ng/ml Amphetamine N 0 - 1000 ng/ml Buprenorphine (BUP) N 0 - 10 ng/ml Secobarbital (Bar) N 0 - 300 ng/ml Oxazepam (BZO) P 0 - 300 ng/ml 4-aqnysdcncn-3,2-fbubewag-6,3-diphenylpyrrolidine (CORY P) N 0 - 300 ng/ml Methamphetamine (MET) N 0 - 1000 ng/ml Methylenedioxymethamphetamine (MDMA) N 0 - 500 ng/ml Morphine (MOP 300/MHA1571) N 0 - 300 ng/ml Methadone (MTD) N 0 - 300 ng/ml Phencyclidine (PCP) N 0 - 25 ng/ml Nortriptyline (TCA) N 0 - 1000 ng/ml Oxycodone N 0 - 300 ng/ml x N 0 - 300 ng/ml REASON FOR VISIT UDS, UDT Visit, UDT done Social History Sex Assigned At : Social History Observation Description Sex Assigned At Female Encounters Encounter Location Date Provider Diagnosis [facility] [address] [place] [address] 08/14/2024 Arash Wei Plan Of Treatment No Information Progress Notes * KIERA EVANGELISTADOB:1970 (53 yo F)Acc No.[id number]:08/14/2024 Progress Note Patient: KIERA KAMARA Provider: Stephane WEI MD :1970 A ge:53 Y S ex:Female Date:08/14/2024 Address:[address] [place] [address] [facility] Pcp:Keyonna Armstrong NP Subjective: * Chief Complaints: * 1 . UDS. 2. UDT Visit. 3. UDT done. * HPI: H istory of Presenting Problem: Pt was seen today and Urine drug screen was done, patient stated that she needed a UDS in order to get her prescription refilled, she was positive for BZO. * Medical History: Objective: * Vitals: Assessment: Plan: * Treatment: Value Reference Range T HC N 0 - 50 ng/ml * C ocaine N 0 - 300 ng/ml * A mphetamine N 0 - 1000 ng/ml * B uprenorphine (BUP) N 0 - 10 ng/ml * S ecobarbital (Bar) N 0 - 300 ng/ml * O xazepam (BZO) P 0 - 300 ng/ml * 2 -ethylidene-1,6-owezppzj-8,3-diphenylpyrrolidine (EDDP) N 0 - 300 ng/ml * M ethamphetamine (MET) N 0 - 1000 ng/ml * M ethylenedioxymethamphetamine (MDMA) N 0 - 500 ng/ml * M orphine (MOP 300/LEK0835) N 0 - 300 ng/ml * M ethadone (MTD) N 0 - 300 ng/ml * P hencyclidine (PCP) N 0 - 25 ng/ml * P ropoxyphene (PPX) N 0 - 300 ng/ml * N ortriptyline (TCA) N 0 - 1000 ng/ml * O xycodone N 0 - 300 ng/ml * Labs: * L ab: UDT (Collection Date & Time - 08/14/2024) Value Reference Range T HC N 0 - 50 ng/ml * C ocaine N 0 - 300 ng/ml * A mphetamine N 0 - 1000 ng/ml * B uprenorphine (BUP) N 0 - 10 ng/ml * S ecobarbital (Bar) N 0 - 300 ng/ml * O xazepam (BZO) P 0 - 300 ng/ml * 2 -ethylidene-1,0-fjyjxwmn-3,3-diphenylpyrrolidine (EDDP) N 0 - 300 ng/ml * M ethamphetamine (MET) N 0 - 1000 ng/ml * M ethylenedioxymethamphetamine (MDMA) N 0 - 500 ng/ml * M orphine (MOP 300/[id number]) N 0 - 300 ng/ml * M ethadone (MTD) N 0 - 300 ng/ml * P hencyclidine (PCP) N 0 - 25 ng/ml * P ropoxyphene (PPX) N 0 - 300 ng/ml * N ortriptyline (TCA) N 0 - 1000 ng/ml * O xycodone N 0 - 300 ng/ml * Procedure Codes: 8 0306 DRUG TST PRSMV READ INSTRMNT ASSTD DIR OPT OBS * Billing Information: * Visit Code: * Procedure Codes: 46691 DRUG TST PRSMV READ INSTRMNT ASSTD DIR OPT OBS. * R CAPTAIN Sign off status: Completed true * Provider: Stephane WEI MD Date: 0 08/14/2024 Generated for Christeni ng/Faxing/eTransmitting on: 0 10/14/2024 03:48 PM CDT History and Physical Notes * HPI (History of Present Illness) Category Sub-Category Detail Notes Category Not es History of Presenting Problem Pt was seen today an d Urine drug screen was done, patient stated that she needed a UDS in order to get her prescription refilled, she was positive for BZO
--- OUTSIDE RECORDS SUMMARY | 2024-10-14 15:48 | XMS_ITS ---
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 process. Plan: - Continue estradiol patches as currently prescribed - Discuss concerns about patch adherence and explore potential solutions or alternatives - Recommend follow-up with primary care or gynecology for comprehensive management of menopausal symptoms and hormone replacement options follow up 3 months, sooner if concerns arise Plan: * Treatment: 2. C hronic insomnia Refill Zolpidem Tartrate Tablet, 10 MG, 1 tablet at bedtime as needed, Oral, once a day, 30 days, 30, Refills 2. * Procedure Codes: 9 6127 BEHAV ASSMT W/SCORE & DOCD/STAND INSTRUMENT, G8431 CLIN DEPRESSION SCREEN DOC, G2211 VISIT COMPLEXITY INHERENT TO ONGOING CARE RELATED TO A PATIENT'S SINGLE, SERIOUS CONDITION OR A COMPLEX CONDITION * Follow Up: 3 Months * Billing Information: * Visit Code: 65683 OFFICE OUTPATIENT VISIT 25 MINUTES DETAILED HISTORY AND EXAM/MODERATE MEDICAL DECISION MAKING. * Procedure Codes: 97733 BEHAV ASSMT W/SCORE & DOCD/STAND INSTRUMENT. G8431 CLIN DEPRESSION SCREEN DOC. G2211 VISIT COMPLEXITY INHERENT TO ONGOING CARE RELATED TO A PATIENT'S SINGLE, SERIOUS CONDITION OR A COMPLEX CONDITION. * Electronic signature of Jesús mandeep Jacobrosa on 10/14/2024 at 03:47 PM CDT Sign off status: Pending * Provider: Keyana Avendano Date: 0 10/13/2024 Generated for Corinne Burden/Roseanna on: 0 10/14/2024 03:47 PM CDT History and Physical Notes * HPI (History of Present Illness) Category Sub-Category Detail Notes Category Notes History of Presenting Problem 53 y/o female, , 5 adopted children, on disability, here to follow up r/t anxiety, chronic insomnia, depression, in context of ZENON, chronic back pain. PCP has been managing medications except for controlled substances that she has been getting from psychiatry prior to transfer to [facility]. This note is transcribed using speech recognition software. It is a reflection of a visit with the patient. It might have some inaccuracy, including medication names and transcribing errors, though efforts have been made to correct them. Reports experiencing mood fluctuations and anxiety primarily attributed to hormonal changes. She reports her mood varies day-to-day, exacerbated by recent difficulties with hormone replacement therapy. Describes challenges with her current hormone therapy, involving a pellet implant she received three months ago. She expresses doubt about the effectiveness of this treatment, citing concerns about the implantation process and a lack of noticeable effects. This situation has contributed to her belief that her hormones are severely out of whack, impacting her mood and overall well-being. Reports increased social withdrawal, stating, I stay home a lot more because I can't let people get to me right now. She reports good sleep, even mentioning sleeping through most of a recent weekend. Recent life events have contributed to elevated anxiety levels. Veronica mentions her daughter's recent wedding and the couple's decision to take on two foster children while house-hunting. She describes her overall anxiety as high but pretty manageable with medication. Despite these challenges, she acknowledges the positive impact of her current psychiatric medications, noting, Thank God for the medicine that I'm on, because it's been working for years. The patient expresses a strong belief in the necessity of her psychiatric medications for her well-being. She recounts past hospitalizations at [facility] following her mother's and during the adoption of three girls, emphasizing the importance of finding the right medication regimen. Veronica states, I found something that does even me out, it gets me through, and expresses gratitude for medications that keep her functioning and out of crisis. Past Psychiatric Hospitalizations Previous psychiatric hospitalizations Previous Psychiatric Hospitalization : Yes How Many Psychiatry Hospitalizations Have You Had in the past?: 2-3 Depression screening PHQ-9 Little inte rest or pleasure in doing things: More than half the days Feeling down, depressed, or hopeless: Se veral days Trouble falling or staying a sleep, or sleeping too much: More than half the days Feeling tired or having little energy: S everal days Poor appetite or overeating: Several day s Feeling bad about yourself o r that you are a failure, or have let yourself or your family down: Several days Trouble concentrating on thi ngs, such as reading the newspaper or watching television: Not at all Moving or speaking so slowly that other people could have noticed; or the opposite, being so fidgety or restless that you have been moving around a lot more than usual: Not at all Thoughts that you would be b davian off or of hurting yourself in some way: Not at all Total Score: 8 Interpretation: Mild Depression Intervention Depression Screening Findings: P ositve Follow-Up for Depression: [facility] treatment assessment, Patient follow-up to return when and if necessary Suicide Risk Assessment Performed: 10/13 Additional Evaluation for Depression: Ps ychiatric interview and evaluation Name of the standardized too l used for adult depression screening:: Patient Health Questionnaire (PHQ-9) Depression Screening RIAZ-7 (2018 Edition) Feelin g nervous, anxious, or on edge: Several days Not being able to stop or control worryi ng: Several days Worrying too much about different things : Several days Trouble relaxing: Several days Being so restless that it is hard to sit still: Not at all Becoming easily annoyed or irritable: Se veral days Feeling afraid as if something awful alejandro ht happen: Several days Total RIAZ-7 Score: 6 If you checked any problems, how difficult have they made it for you to do your work, take care of things at home, or get along with other people?: Somewhat difficult Interpretation of Total: (5 to 9) Mild [place]-Suicide Severity Rating Scale Suicide Risk (CSRS-screener) in the past one month Have you wished you were or wished you could go to sleep and not wake up?: No Past Psychiatric Medications Past meds: zoloft-didn't work well, belsomra, lunesta yrs ago didn't work, zyprexa for mood was like I was floating, prozac Examination Category Sub-Category Detail Notes Category Not es Psychiatry Appearance: well-groomed, well-nourished Attitude: cooperative Psychomotor activity: within normal rang e Abnormal body movements: none Attention: normal in conversati on Degree of awareness of surroundings: wit hin normal limits Orientation: awake, alert and thania ented x 3 Affect / mood: appropriate Speech / language: appropriate pitch/mo dulation, clear and coherent, normal rate, volume, and articulation (RVR), proper grammar used Insight: good Judgement: fair, discuss risks of long-term ambien and benzodiazepine usage; verbalizes understand, not receptive to changing Thought process: intact Thought content: appropriate Suicidal ideation: none Homicidal ideation: none Intellectual functioning: no impairment noted Memory status: no impairment noted Delusions: no Hallucinations: no
--- OUTSIDE RECORDS SUMMARY | 2024-10-14 15:48 | XMS_ITS | Encounter Summary ---
Author Organization [facility] Address [address] [place] [address] Phone Care Team Providers Care Vegetable Thinner Name Role Phone Keyonna Armstrong APRN, BETY Primary Care Provider + Encounter Details Date Type Department Care Team (Late Contact Info) Description 02/28/2024 Telephone [facility] [address] [address] Woody Horvath MD [address] [address] Social History Tobacco Use Types Packs/Day Years Used Date Smoking Tobacco: Never Smokeless Tobacco: Never Alcohol Use Standard Drinks/Week Comments Not Currently 0 (1 standard drink = 0.6 oz pur e alcohol) Comments Unknown Sex and Gender Information Value Date Recorded Sex Assigned at Not on file Legal Sex Female 1:39 PM GEOMETRICIAN Gender Identity Not on file Sexual Orientation [...] CDT Office Visit [facility] [place] [address] [place] [phone] Woody Horvath MD [address] [address] documented as of this encounter Visit Diagnoses Not on filedocumented in this encounter Care Teams Vegetable Thinner Relationship Specialty Start Date End Date Keyonna Armstrong APRN, JOY LOADING MACHINE OPERATOR [address] [place] [id number] PCP - General Family Medicine 10/19/22 documented as of this encounter
--- OUTSIDE RECORDS SUMMARY | 2024-10-14 15:48 | XMS_ITS | Encounter Summary ---
Author Organization [facility] Address [address] [place] [address] Care Team Providers Care Underwriting Consultant Name Role Phone Keyonna Armstrong Primary Care Provider [phone] Encounter Details Date Type Department Care Team (Late st Contact Info) Description 01/09/2020 Prep for Procedure [facility] [place], [place] [id number] Burt Payne MD [address] [phone] Social History Tobacco Use Types Packs/Day Years [...] Sex Assigned at Female 08/08/2024 10:41 AM MOLD LAMINATOR Legal Sex Female 5:47 PM CDT Gender Identity Female 07/17/2022 10:27 AM MOLD LAMINATOR Sexual Orientation Straight 07/17/2022 10 :27 AM MOLD LAMINATOR COVID-19 Exposure Response Date Recorded In the last month, have you been in contact with someone who was confirmed or suspected to have Coronavirus / COVID-19? No / Unsure 01/12/2020 7:07 AM CDT documented as of this encounter Plan of Treatment Upcoming Encounters Date Type Department Care Team (Late st Contact Info) Description 11/18/2024 9:00 AM CDT Office Visit [facility] [place] [id number] [place] [address] Keyonna Armstrong APNP [address] [place] [address] documented as of this encounter Results * PRE-SURGICAL/PRE-PROCEDURE CORONAVIRUS (COVID 19) (01/09/2020 1:54 PM CDT) CORONAVIRUS SARS COV 2 PCR (RESP) NOT DETECTED NOT DETECTED 01/10/2020 9:43 PM CDT [facility] Comment: A Not Detected (negative) test result for this test means that SARS- CoV-2 RNA was not present in the specimen above the limit of detection. A negative result does not rule out the possibility of COVID-19 and should not be used as the sole basis for treatment or patient management decisions. If COVID-19 is still suspected, based on exposure [...] providers and patients using the following websites: https://www.Pumodo.OrderGroove/home/Covid-19/HCP/QuestIVD/fact- sheet.html https://www.Pumodo.OrderGroove/home/Covid-19/Patients/ QuestIVD/fact-sheet.html This test has been authorized by the FDA under an Emergency Use Authorization (EUA) for use by authorized laboratories. Due to the current public health emergency, [facility] is receiving a high volume of samples [...] including collection of an additional specimen. Methodology: Nucleic Acid Amplification Test (NAAT) includes PCR or TMA Additional information about COVID-19 can be found at the [facility] website: www.EquipRent.com/Covid19. Test performed at [facility] [place] [address] [place] [phone] Director: GENE VILLAR DO,MPH NASOPHARYNGEAL SWAB / Unknown 01/09/2020 1:54 PM CDT us Burt Payne MD MICROBIOLOGY - GENERAL ORDERABLE S Final Result [facility] [address] [address] documented in this encounter Visit Diagnoses Diagnosis Encounter for screening colonoscopy- Primary Special screening for malignant neoplasms, colon documented in this encounter Additional Health Concerns Infection Onset Date Last Indicated Resolved Time COVID-19 Rule Out 01/09/2020 01/09/2020 01/10/2020 9:43 PM CDT Assessment Noted Time PHQ-9 Depression Total Score: 22 020 3:46 PM MOLD LAMINATOR documented as of this encounter Care Teams Underwriting Consultant Relationship Specialty Start Date End Date Keyonna Armstrong APNP [address] [place] [id number] PCP - General NURSE PRACTITIONER 05/06/18 documented as of this encounter
--- OUTSIDE RECORDS SUMMARY | 2024-10-14 15:48 | XMS_ITS ---
Author Organization [facility] Address [address] [address] Care Team Providers Care Black Mill Operator Name Role Phone Patti HERRING, Keyonna Primary Care Provider Unavaila Nayla Wheat Unavailable [phone] Social History Sex Assigned At : Social History Observation Description Sex Assigned At Female Encounters En[facility] [place] [address] [address] 07/22/2024 Nayla Avendano Plan Of Treatment No Information Progress Notes * KIERA EVANGELISTADOB:1970 (53 yo F)Acc No.[id number]:07/22/2024 Patient: AUDRA KAMARALI :1970 A ge:53 Y S ex:Female Address:[address] [place], [address] * true * Date: Generated for Christeni carmelita/Carrillog/eTransmitting on: 0 10/14/2024 03:48 PM CDT
--- OUTSIDE RECORDS SUMMARY | 2024-10-14 15:49 | XMS_ITS | Clinical Summary ---
Author Organization [facility] Address [address] [place] [address] Care Team Providers Care Redevelopment Manager Name Role Phone Keyonna Armstrong Primary Care Provider [phone] Allergies Active Allergy Reactions Criticality Noted Date Comments Trazodone Hallucinations 08/28/2019 Medications Multiple Vitamin (MULTI-VITAMIN) tablet Take 1 tablet by mouth daily. Active LORazepam (ATIVAN) 1 MG tabletIndication s:Anxiety Take 1 tablet (1 mg total) by mouth every 8 (eight) hours as needed for Anxiety (regularly takes 3 tabs daily). 60 tablet 12/02/19 23 Active gabapentin (NEURONTIN) 100 MG capsule Take 1 capsule (100 mg total) by mouth 3 (three) times daily. 11/22/19 23 Active vitamin D3 (CHOLECALCIFEROL ) 25 mcg tablet Take 1 tablet (25 mcg total) by mouth daily. Active Magnesium 400 MG Cap Take 1 capsule by mouth 2 (two) times a day. Active dimenhyDRINATE (DRAMAMINE) 50 MG Tab tablet Take 1 tablet (50 mg total) by mouth every 4 (four) hours as needed for Nausea. Active diphenhydrAMINE- APAP (TYLENOL PM) 25-500 MG Tab tablet Take by mouth nightly at bedtime. Active Cranberry-Vitami n C-Probiotic (AZO CRANBERRY) 250-30 MG Tab Active progesterone (PROMETRIUM) 200 MG capsule TAKE 1 CAPSULE BY MOUTH EVERY DAY IN THE EVENING 08/25/19 24 Active zolpidem (AMBIEN) 10 MG tablet TAKE 1 TABLET BY MOUTH AT BEDTIME NEEDED ONCE DAILY FOR 30 DAYS 02/13/20 24 Active metFORMIN (GLUCOPHAGE) 500 MG tabletIndication s:Prediabetes TAKE 1 TABLET BY MOUTH EVERY MORNING AND 2 TABLETS AT BEDTIME 270 tablet 1 02/27/20 24 Active mirtazapine (REMERON) 15 MG tabletIndication s:Primary insomnia Take 1 tablet (15 mg total) by mouth nightly at bedtime. 90 tablet 1 02/27/20 24 Active buPROPion SR (ZYBAN) 150 MG 12 hr tabletIndication s:Recurrent major depressive disorder, in partial remission Take 1 tablet (150 mg total) by mouth 2 (two) times daily. 180 tablet 1 02/27/20 24 Active methocarbamol (ROBAXIN) 750 MG TabIndications:P ulled muscle Take 1 tablet (750 mg total) by mouth 3 (three) times daily as needed. 180 tablet 02/27/20 24 Active pantoprazole EC (PROTONIX) 20 MG tabletIndication s:Gastroesophage al reflux disease without esophagitis Take 1 tablet (20 mg total) by mouth daily. 90 tablet 02/29/20 24 Active ibuprofen (MOTRIN) 800 MG tabletIndication s:Right ovarian cyst Take 1 tablet by mouth three times daily as needed 60 tablet 3 07/03/20 24 Active oxybutynin (DITROPAN) 5 MG tablet TAKE 1 TABLET BY MOUTH TWICE DAILY NEEDED FOR BLADDER SPASMS 07/25/19 25 Active hydroCHLOROthiaz tan (HYDRODIURIL) 25 MG tabletIndication s:Essential hypertension Take 1 tablet (25 mg total) by mouth daily. 90 tablet 1 08/08/19 25 Active lisinopril (PRINIVIL) 40 MG tabletIndication s:Essential hypertension Take 1 tablet (40 mg total) by mouth daily. 90 tablet 1 08/08/19 25 Active metoprolol tartrate (LOPRESSOR) 100 MG tabletIndication s:Primary hypertension,Sin us tachycardia Take 1 tablet (100 mg total) by mouth 2 (two) times daily. 180 tablet 1 08/08/19 25 Active MOUNJARO 15 MG/0.5ML injection Inject 15 mg into the skin once a week. 09/16/19 25 Active hydrOXYzine (ATARAX) 25 MG tabletIndication s:Gastroesophage al reflux disease without esophagitis Take 1 tablet by mouth twice daily as needed 60 tablet 10/11/19 25 Active amLODIPine (NORVASC) 5 MG tabletIndication s:Primary hypertension Take 1 tablet by mouth once daily 90 tablet 10/14/19 25 Active venlafaxine XR (EFFEXOR-XR) 75 MG 24 hr capsuleIndicatio ns:Depression, unspecified depression type TAKE 1 CAPSULE BY MOUTH IN THE MORNING AND 2 IN THE EVENING 270 capsule 10/14/19 25 Active MOUNJARO 12.5 MG/0.5ML injection INJECT 12.5 MG UNDER THE SKIN EVERY 7 DAYS 025 Discontinued venlafaxine XR (EFFEXOR-XR) 75 MG 24 hr capsuleIndicatio ns:Depression, unspecified depression type TAKE 1 CAPSULE BY MOUTH EVERY MORNING AND 2 CAPSULES EVERY EVENING 270 capsule 1 02/27/20 24 025 Discontinued hydrOXYzine (ATARAX) 25 MG tabletIndication s:Gastroesophage al reflux disease without esophagitis Take 1 tablet by mouth twice daily as needed 60 tablet 3 04/29/20 24 025 Discontinued amLODIPine (NORVASC) 5 MG tabletIndication s:Primary hypertension Take 1 tablet by mouth once daily 90 tablet 07/11/20 24 025 Discontinued amLODIPine (NORVASC) 5 MG tabletIndication s:Primary hypertension Take 1 tablet by mouth once daily 90 tablet 09/15/19 25 025 Discontinued Active Problems Problem Noted Date Diagnosed Date Morbid (severe) obesity due to excess calories 0 11/23/2023 Recurrent major depressive disorder, in partial remission 12/20/2021 Leukocytosis (leucocytosis) 08/26/2019 Reactive thrombocytosis 08/26/2019 PCOS (polycystic ovarian syndrome) 06/20/2018 Cholecystitis 06/11/2018 Insomnia 04/02/2018 High serum renin 10/25/2017 Adrenal adenoma [...] Date Diagnosed Date Resolved Date Abnormal platelets (CMS/HCC HHS/HCC) 03/04/2020 12/20/2021 BMI 50.0-59.9, adult 06/11/2018 019 Menorrhagia 04/02/2018 07/31/2024 Class 3 severe obesity with serious comorbidity in adult 09/23/2013 12/20/2021 Encounters Date Type Department Care Team Description 10/03/2024 Scan [facility] Scanned, [facility] 09/25/2024 2:45 PM [employer]ER Office Visit [facility], [address] [address] Pepe Mitchell MD Tachycardia (Follow up) 09/25/2024 Travel 09/19/2024 Telephone [facility] Family & Internal Medicine [address] [phone] Keyonna Armstrong, APNP Information 08/20/2024 Scan [facility] SRVCS Scanned, [facility] 08/15/2024 Telephone [facility], [address] [address] Pepe Mitchell MD Schedule Test 08/08/2024 10:20 AM [employer] Office Visit [facility] Family & Internal [address] [phone] Keyonna Armstrong, APNP Tachycardia 08/08/2024 Scan [facility] Scanned, [facility] 08/08/2024 Travel 08/07/2024 10:45 AM [employer] Telephone [facility], [address] [address] Pepe Mitchell MD Holter Monitor 07/31/2024 10:15 AM [employer] Office Visit [facility], [place] [address] [place] [address] Pepe Mitchell MD Tachycardia (New Consult ) 07/31/2024 Travel 07/25/2024 Scan [facility] Scanned, [facility] Image (SCAN); Lab (SCAN); Procedure (SCAN); Pathology (SCAN) 07/24/2024 Telephone [facility] Family & Internal Medicine [address] [phone] Keyonna Armstrong APNP Med Refills from Last 3 Months Immunizations Name Administration Dates Next Due Dtap (Generic) 04/25/2016 FLUCELVAX (ccIIV3, TRIVALENT, 0.5mL) 04/06/2024 Fluzone 6 Months+ Quad (0.5 mL Prefilled [...] Sex Assigned at Female 08/08/2024 10:41 AM [employer] Legal Sex Female 5:47 PM CDT Gender Identity Female 07/17/2022 10:27 AM [employer] Sexual Orientation Straight 07/17/2022 10 :27 AM [employer] Last Filed Vital Signs Vital Sign Reading Time Taken Comments Blood Pressure 120/60 09/25/2024 3:19 PM [employer] Pulse 110 09/25/2024 3:19 PM [employer] Temperature 36 C (96.8 F) 08/08/2024 10:34 AM [employer]ER Respiratory Rate 16 08/08/2024 10:34 AM [employer] Oxygen Saturation 95% 09/25/2024 3:19 PM [employer]ER Inhaled Oxygen Concentration - - Weight 105.7 kg (233 lb) 09/25/2024 3:19 PM [employer] Height 162.6 cm (5' 4 ) 09/25/2024 3:19 PM [employer] Body Mass Index 39.99 09/25/2024 3:19 PM [employer] Plan of Treatment Upcoming Encounters Date Type Department Care Team (Late st Contact Info) Description 11/18/2024 9:00 AM CDT Office Visit [facility] Family & Internal Medicine [id number] [place] [address] Keyonna Armstrong APNP [facility] [place] [address] Health Maintenance Due Date Last Done Comments Cervical Cancer Screening Pap Smear (Age 30 to 64) Every 3 Years 1968 Annual Physical 1971 Hepatitis C 1986 Hepatitis B Vaccines (1 of 3 - 19+ 3-dose series) 1987 Cervical Cancer Screening Pap with HPV Testing (Age 30 to 64) Every 5 Years 1998 Mammogram Screening 08/09/2022 08/09/2020 Zoster Vaccines (2 of 2) 08/19/2023 06/24/2023 Cervical Cancer Screening with HPV 08/08/2025 Postponed from 1998 (Going to Outside Clinic) DTaP, Tdap and Td Vaccines (3 - Td or Tdap) 04/25/2026 04/25/2016, 04/25/2016 Colorectal Cancer Screening Colonoscopy (10 Years) 01/11/2030 01/12/2020, 01/12/2020 Pneumococcal Vaccine: Pediatrics (0 to 5 Years) and At-Risk Patients (6 to 64 Years) Aged Out 05/04/2021, 04/22/2019 No longer eligibl e based on patient's age to complete this topic COVID-19 Vaccine Completed 04/06/2024, 02/2022, 11/20/2020, Additional history exists Influenza Adult Completed 04/06/2024, 12/09/2022, 05/30/2022, Additional history exists PHQ-2 (Physician [place]) Completed 08/08/2024 Meningococcal B Vaccine Aged Out No l onger eligible based on patient's age to complete this topic Meningococcal Vaccine Aged Out No jordi orestes eligible based on patient's age to complete this topic RSV Immunizations Under 20 Months Aged Out No longer eligible based on patient's age to complete this topic Procedures Procedure Name Priority Date/Time Associated Diagnosis Comments XTRNL ECG REC<48 HRS RECORDING SCAN A/R R&I Routine 09/12/2024 2:11 PM [employer]ER Tachycardia PATHOLOGY GENERIC (SCAN ORDER) 07/25/2024 OUTSIDE LAB (SCAN ORDER) 07/25/2024 OUTSIDE LAB (SCAN ORDER) 07/25/2024 IMAGE GENERIC 07/25/2024 PROCEDURE GENERIC (SCAN ORDER) 07/25/2024 MAMMOGRAM GENERIC (SCAN ORDER) 08/09/2020 COLONOSCOPY GENERIC (SCAN ORDER) Routine 01/12/2020 from Last 3 Months or Most Recently Relevant to Health Maintenance Results * CLINIC - HOLTER MONITOR - ECG UP TO 48 HRS,COMPLETE (09/12/2024 2:11 PM NARR[employer] WEAVER) Impressions [facility] - 09/12/2024 2:11 PM NARR[employer] WEAVER [place], [place] [address] HOLTER MONITOR REPORT Patient Name: Veronica Evangelista : 1970 Straightener Date: 08/23/2024@6:05 PM [facility] [place] Interpreting Big Data Lead: Pepe Mitchell MD PCP: YOBANI Cruz Ordering Provider: Pepe Mitchell MD INDICATION: Tachycardia DURATION OF MONITORIN hours, 36 minutes BASELINE RHYTHM: Sinus tachycardia HEART RATE: Minimum: 110 BPM, Maximum: 185 BPM, Average: 135 BPM PAUSES: 0 (> 3.0 seconds) INTERPRETATION: A 24hrs Holter was analyzed which did not include symptom triggered episodes. There were 58,899 QRS complexes analyzed. There was 1 day, 22 hours, and 23 minutes of artifactual data which could not be interpreted. The baseline rhythm was sinus tachycardia. There were rare isolated premature ventricular contractions (<1%). There was also frequent isolated premature atrial contractions (7%). There was 0 minutes of bradycardia recorded. There was 7 hours and 35 minutes of tachycardia. CONCLUSION: 24hrs Holter with limited data available for analysis. The average heart rate was 135 bpm during the monitoring period. There were frequent supraventricular ectopic beats analyzed. Interpreting Big Data Lead: Dr. Pepe Mitchell Pepe Mitchell MD PROCEDURES Final Resul t [facility] * PATHOLOGY GENERIC (SCAN ORDER) (07/25/2024) 07/25/2024 [facility] Scanned SCANNING Final Resu lt * OUTSIDE LAB (SCAN ORDER) (07/25/2024) Only the most recent of2 resultswithin the time period is included. 07/25/2024 [facility] Scanned SCANNING Final Resu lt * IMAGE GENERIC (07/25/2024) Anatomical Region Laterality Modality Other 07/25/2024 [facility] Scanned SCANNING Final Resu lt * PROCEDURE GENERIC (SCAN ORDER) (07/25/2024) 07/25/2024 [facility] Scanned SCANNING Final Resu lt * MAMMOGRAM GENERIC (08/09/2020) Anatomical Region Laterality Modality Other 08/09/2020 Narrative 08/09/2020 Ordered by an unspecified provider. us Documents Scanned SCANNING Final Result * COLONOSCOPY (01/12/2020) us Documents Scanned SCANNING Final Result Performing Organization Address City/State/[facility] Co de Phone Number [facility] from Last 3 Months or Most Recently Relevant to Health Maintenance Insurance [facility] Care Teams Redevelopment Manager Relationship Specialty Start Date End Date Keyonna Armstrong APNP [address] [place], [place] [address] PCP - General NURSE PRACTITIONER 05/06/18
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
--- NOTE | 2024-10-14 16:06 | IVDEFINITY ---
Prior to administration of IV Definity the patient was educated on the risks and benefits of the imaging enhancing agent including potential adverse side effects. The patient verbalized understanding. Allergies were verified. No exclusion criteria were identified and at least one of the following inclusion criteria were met: 1) physician request, 2) patient technically difficult to image (per the [place] [employer] guidelines of two or more segments not discernable within the apical view), or 3) questionable left ventricular function. ?
== END 2024-10-14 13:35 | disposition home or self-care (01) ==
PROVIDERS: PCP Registered Nurse
DX: R93.1 Abnormal findings on diagnostic imaging of heart and coronary circulation (principal); R00.0 Tachycardia, unspecified; I10 Essential (primary) hypertension
CPT/HCPCS: C8929; Q9957

== ENCOUNTER 2024-10-29 11:11 | Outpatient (CLI) | payer MEDICARE, SELFPAY ==
--- NOTE | ~2024-10-29 | MM_ITS ---
EXAMINATION: MM screening [facility] BI w ivan HISTORY: Screening TECHNIQUE: Craniocaudal and mediolateral oblique 3-D tomosynthesis images were obtained and synthetic 2-D images were generated. CAD analysis was submitted and interpreted. COMPARISON: Comparison to multiple prior studies sequentially, with oldest reviewed study dated 08/09. BREAST PARENCHYMAL COMPOSITION: Not Dense: The breasts are almost entirely fatty. FINDINGS: There is no evidence of suspicious mass, calcification, or architectural distortion to sugg est malignancy in either breast. There has been no suspicious interval change. IMPRESSION: 1. No mammographic evidence of malignancy. 2. Recommend routine screening mammography in one year. BI-RADS Category 1: Negative Reviewed, dictated and finalized at location A.
== END 2024-10-29 11:12 | disposition home or self-care (01) ==
LOC: MICIMG 11:12
PROVIDERS: PCP Registered Nurse; Visit Provider Registered Nurse
DX: Z12.31 Encounter for screening mammogram for malignant neoplasm of breast (principal)
CPT/HCPCS: 77063; 77067

== ENCOUNTER 2024-10-31 09:15 | Outpatient (RCR) | payer MEDICARE, SELFPAY ==
--- NOTE | 2024-08-14 15:44 | OPREHPOC ---
Outpatient Therapy Plan of Care This is a Multidisciplinary Plan of Care that may contain components documented by all disciplines (PT, OT, and ST.) PT Problem 1 PT Problem #1 Knowledge Deficit PT Goal 1 Goal / Goal Update *indep with HEP Target Visit 8 PT Problem 2 PT Problem #2 Pain PT Goal 1 Goal / Goal Update 1* neck pain at worst rating of 4/10 2* pt report with sleeping, tolerance of 3 hours at time Target Visit 8 PT Problem 3 PT Problem #3 Impaired Flexibility PT Goal 1 Goal / Goal Update to improve home and driving tasks 1* pt perform cervical rotation to R 80' 2* pt perform without an increase in pain: cervical rotation to L Target Visit 8 PT Problem 4 PT Problem #4 Impaired Strength PT Goal 1 Goal / Goal Update *increase whohgehw-eanljuwd-dvopmpcf strength to improve positioning of spine pt perform 20 reps of standing and mat exercises Target Visit 8
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
--- NOTE | 2024-09-12 11:21 | OPREHPOC ---
Outpatient Therapy Plan of Care This is a Multidisciplinary Plan of Care that may contain components documented by all disciplines (PT, OT, and ST.) PT Problem 1 PT Problem #1 Knowledge Deficit PT Goal 1 Goal / Goal Update *indep with HEP 09-12-24 d/c cervical goal met 09-12-24: EVAL for back goals: pt indep with HEP and use correct body mechanics Target Visit 14 PT Problem 2 PT Problem #2 Pain PT Goal 1 Goal / Goal Update 1* neck pain at worst rating of 4/10 2* pt report with sleeping, tolerance of 3 hours at time 09-12-24 d/c cervical goal 2 met; #1 improved to 510 09-12-24: EVAL for back goals: 1*pain rating at worst of 7/10 2* pt report awakening from sleeping 1-2x/night due to back pain Target Visit 14 PT Problem 3 PT Problem #3 Impaired Flexibility PT Goal 1 Goal / Goal Update to improve home and driving tasks 1* pt perform cervical rotation to R 80' 2* pt perform without an increase in pain: cervical rotation to L 09-12-24 d/c cervical goal #2 met 09-12-24: EVAL for back goals: increase hamstring length, to decrease pull on lumbar-sacral spine: with supine SLR: 1* R 55' 2* L 65' Target Visit 14 PT Problem 4 PT Problem #4 Impaired Strength PT Goal 1 Goal / Goal Update *increase vooozmcp-rcfxbzpb-vjrlagth strength to improve positioning of spine pt perform 20 reps of standing and mat exercises 09-12-24 d/c cervical goal met 09-12-24: EVAL for back goals: increase strength to improve stability to spine and hips: 1* 2 minute walking test time distance of 375' 2* single leg standing R 10 seconds 3* single leg standing L 10 seconds Target Visit 14
--- NOTE | 2024-09-12 11:21 | PTOPEVAL1 ---
Assessment and note entered by Bronwyn Owens, PT Evaluation Information Assessment Status Evaluation ICD-10 Condition Codes (PT) Cervicalgia M54.2,Pain in low back M54.50 Other ICD-10 Condition Codes ( M54.2 chronic neck and back pain; DDD cervical M50 PT) .30 Onset Mar 2024 Subjective Information NECK: is much better; have been correcting my posture all day long and it has helped a lot; not any headaches lately; want to stop therapy on my neck and start back treatment. And learn water exercises for both; BACK: have had back pain for the past 20 years; Increase pain in June 2024 with illness/sepsis and fell 3x- irritated her back more; no recent imaging for back; recent back injections-- mid July, helped back pain some; do not think she has had PT for back in the past NECK: pain range in the past week -11/29 report sleeping is not disrupted by neck pain, 8 hour tolerance BACK: pain range in the past week -05/01; R and L lumbar and sacral; no radicular pain; have had radicular pain in the past, not any lately; Increase pain: standing still 3 minutes; walking 2 minutes decrease pain: sitting, ice, ibuprofen, change positions stretching sometimes helps, sometimes hurts her back report with sleeping, pain from back awakens her 1 -3x/night Reported Pain Level Pain Score Self Report Additional Pain Score Comments NECK: pain range in the past week -11/29 report sleeping is not disrupted by neck pain, 8 hour tolerance BACK: pain range in the past week -05/01; R and L lumbar and sacral; no radicular pain; have had radicular pain in the past, not any lately; Increase pain: standing still 3 minutes; walking 2 minutes decrease pain: sitting, ice, ibuprofen, change positions stretching sometimes helps, sometimes hurts her back report with sleeping, pain from back awakens her 1 -3x/night Assessment PT Clinical Summary This is d/c for cervical treatment and EVAL for back treatment. Veronica has received 6 treatments for her NECK: improved with self assessment Neck Index from 54 to 26% limitation in activity level; no longer has headaches; reported sleeping is not disrupted due to cervical pain; increase cervical-thoracic strength; cervical rotation R and L without pain increase; education completed for posture and HEP; goals were partially achieved. Discharge treatment neck. With the BACK evaluation: pain over R and L lumbar-sacral, no radicular pain; Oswestry self rating of 70% limitation in activity level; decreased standing and walking to few minutes; 2 minute walking test distance of 305' with pain increase to 9/10; decreased strength of both LE's and trunk, with single leg standing of 3 seconds and unstable, hip abduction strength 3+/5; Skilled PT services to continue with initiation of treatment for back pain: aquatic and land exercises to increase trunk and LE strength, modalities for pain control and education for HEP and body mechanics. Plan of Care Interventions Aquatic Therapy,Electrical Stimulation,Hot Pack/ Cold Pack,Manual Therapy,Mechanical Traction, Patient/Caregiver Education,Therapeutic Activities ,Therapeutic Exercise,Ultrasound,Other Other Interventions taping PT Services Indicated Yes Treatment Frequency and 1-2x/wk for 8 visits Duration These treatments will address the objective and functional deficits as defined above. The patient will be advanced safely and appropriately in order for the patient to progress towards his/her prior level of function. Additional exercises will be introduced and as well as a comprehensive home exercise program upon discharge, if needed, ?to ensure carryover of functional gains achieved in the clinic. This treatment plan has been reviewed and agreement upon by the patient.
--- NOTE | 2024-10-03 09:56 | PCPTNOTE ---
Pt canceled due to sickness.
--- NOTE | 2024-10-14 09:56 | OPREHPOC ---
Outpatient Therapy Plan of Care This is a Multidisciplinary Plan of Care that may contain components documented by all disciplines (PT, OT, and ST.) PT Problem 1 PT Problem #1 Knowledge Deficit PT Goal 1 Goal / Goal Update *indep with HEP 09-12-24 d/c cervical goal met 09-12-24: EVAL for back goals: pt indep with HEP and use correct body mechanics --------- 10-14-24 progress goal met continue to progress education Target Visit 18 PT Problem 2 PT Problem #2 Pain PT Goal 1 Goal / Goal Update 1* neck pain at worst rating of 4/10 2* pt report with sleeping, tolerance of 3 hours at time 09-12-24 d/c cervical goal 2 met; #1 improved to 5/10 09-12-24: EVAL for back goals: 1*pain rating at worst of 7/10 2* pt report awakening from sleeping 1-2x/night due to back pain --------- 10-14-24 progress goal 2 met continue towards #1 Target Visit 18 PT Problem 3 PT Problem #3 Impaired Flexibility PT Goal 1 Goal / Goal Update to improve home and driving tasks 1* pt perform cervical rotation to R 80' 2* pt perform without an increase in pain: cervical rotation to L 09-12-24 d/c cervical goal #2 met 09-12-24: EVAL for back goals: increase hamstring length, to decrease pull on lumbar-sacral spine: with supine SLR: 1* R 55' 2* L 65' --------- 10-14-24 progress goal 1 met continue towards #2 Target Visit 18 PT Problem 4 PT Problem #4 Impaired Strength PT Goal 1 Goal / Goal Update *increase fablkfar-kzfwcwne-eibdwqqu strength to improve positioning of spine pt perform 20 reps of standing and mat exercises 09-12-24 d/c cervical goal met 09-12-24: EVAL for back goals: increase strength to improve stability to spine and hips: 1* 2 minute walking test time distance of 375' 2* single leg standing R 10 seconds 3* single leg standing L 10 seconds --------- 10-14-24 progress goal 1 met-- upgrade to 425' continue 2 & 3 Target Visit 18
--- NOTE | 2024-10-14 09:56 | PTOPPROG ---
Assessment and note entered by Bronwyn Owens, PT Assessment Status Progress ICD-10 Condition Codes (PT) Pain in low back M54.50 Other ICD-10 Condition Codes ( M54.2 chronic neck and back pain; PT) Onset Mar 2024 Subjective Information low back is a little better--have more balance, able to stand and walk a little more than I was able to; was sick over the weekend and have not been doing much lately; doing the exercises as she has been able to; want to continue therapy- like the water exercises. BACK PAIN: in the past week: 3-9/10; intermittent radicular pain into L LE to calf at worst/ R to knee decrease pain: stim and heat, stretching, hot back ibuprofen 800s increase pain: more activity with grand children report with sleeping, awaken 1x/night due to back pain report standing/walking activity level at home: 3 minutes then have to sit down Assessment PT Clinical Summary Veronica has received a total of 10 PT sessions. She called/canceled 3 appointments. Treatment for her low back pain has been for the last 4 sessions. Compared to the last assessment for her back pain: pain rating from 5-10/10 to 3-9/10; self assessment back index rating same at 70% limitation in activity level; reported sleeping tolerance improved to awakening 1x/night due to pain; reported standing/walking with home tasks of 3 minutes; increase hamstring flexibility on R LE; 2 minute walking test distance from 305' with pain 9/10 to 375' with pain of 6/10; continues to have weakness of both hip abduction and single leg standing tolerance; education for HEP and body mechanics. The goals were partially met. Continue PT treatment. Plan of Care Interventions Aquatic Therapy,Electrical Stimulation,Hot Pack/ Cold Pack,Manual Therapy,Mechanical Traction, Patient/Caregiver Education,Therapeutic Activities ,Therapeutic Exercise,Ultrasound,Other Other Interventions taping PT Services Indicated Yes Treatment Frequency and 1-2x/wk for 8 visits Duration These treatments will address the objective and functional deficits as defined above. The patient will be advanced safely and appropriately in order for the patient to progress towards his/her prior level of function. Additional exercises will be introduced and as well as a comprehensive home exercise program upon discharge, if needed, ?to ensure carryover of functional gains achieved in the clinic. This treatment plan has been reviewed and agreement upon by the patient.
--- NOTE | 2024-10-21 09:33 | PCPTNOTE ---
Pt no showed visit today, left message with next day and appt which will be land.
--- NOTE | 2024-11-04 08:08 | PCPTNOTE ---
Pt canceled due to illness.
--- NOTE | 2024-11-11 14:31 | PCPTNOTE ---
pt did not show for today's reeval appt.
--- NOTE | 2024-11-11 14:34 | PCPTNOTE ---
Addendum entered by Cathy Casiano, ANIMAL CARE TECHNICIAN 11/11/24 14:45: 2 units Therapeutic Exercise 28 min 1 unit Function therex 13 Total units 41 Original Note: 10-31-24 Documentation S: Pt presents late for appt. today. She notes her son changed the time on her car clock so she is running 15 min late. Pt states she feels like she is the pneumonia is coming back. She had a bad night last night with sleep. She notes she was starting to feel like she was making progress but since all of her health set backs she is not sure any more. Pt states she is really stressed with family right now. O:-standing bilateral PF x 15 reps -standing hip abduction x15 -side stepping 4 laps -supine seated hamstring stretch R and L x 3 side lying hip abduction x 15 ea -posterior pelvic tilts x10 for 5 sec -LTR with PPT x10 for 5 sec -nuStep 5 min level 3 for mobility and strengthening A: Pt tolerated session fairly well with occasional breaks due to coughing and fatigue. Pt is encouraged to seek medical assistance if she feel pneumonia is coming back. Pt requires cueing for exercise technique and cueing for alignment and posture. P: Continue to progress with strengthening and endurance as tolerated by pt. [ End ]
== END 2024-11-12 23:59 | disposition home or self-care (01) ==
LOC: ANHPT 09:15
PROVIDERS: PCP Registered Nurse
DX: M54.9 Dorsalgia, unspecified (principal); G89.29 Other chronic pain; M47.816 Spondylosis without myelopathy or radiculopathy, lumbar region; M51.360 Other intervertebral disc degeneration, lumbar region with discogenic back pain only; M43.16 Spondylolisthesis, lumbar region; M47.812 Spondylosis without myelopathy or radiculopathy, cervical region; M50.30 Other cervical disc degeneration, unspecified cervical region; M25.78 Osteophyte, vertebrae; M51.34 Other intervertebral disc degeneration, thoracic region; M43.12 Spondylolisthesis, cervical region
CPT/HCPCS: 97014; 97110; 97113; 97140; 97161; 97530; G0283

== ENCOUNTER 2025-01-13 08:04 | Outpatient (CLI) | payer MEDICARE, SELFPAY ==
--- NOTE | ~2025-01-13 | MR_ITS ---
MRI of the lumbar spine Clinical History: Back pain Technique: Axial T2-weighted images, and sagittal T1-weighted, T2-weighted, and T2 fat-sat images wer e acquired. Findings: No fracture or subluxation seen in the lumbar spine. Vertebral bodies maintain normal heigh t and alignment. No suspicious bone marrow signal abnormality seen. At L1-L2, there is no disc bulge or herniation. There is moderate facet arthropathy. No central canal stenosis or neural foraminal narrowing. At L2-L3, there is no disc bulge or herniation. There is severe facet arthropathy. No central canal s tenosis or neural foraminal narrowing. At L3-L4, there is mild disc bulge and severe facet arthropathy. There is mild central canal stenosis . There is mild right neural foraminal narrowing. Left neural foramen preserved. At L4-L5, there is diffuse disc bulge with right paracentral disc extrusion, which probably impinges the descending right-sided L5-S1 level nerve root. There is moderate spinal canal stenosis/thecal sac compression at this level. Moderate right neural foraminal narrowing present. Left neural foramen pr eserved. At L5-S1, there is moderate degenerative distended. There is disc bulge with superimposed large left paracentral disc extrusion extending superiorly behind the L5 vertebral body, resulting in severe the derrick sac compression and spinal canal stenosis. There is associated severe facet arthropathy at this l evel. There is moderate to severe bilateral neural foraminal narrowing. Paravertebral soft tissues are unremarkable. Impression: Large left paracentral disc extrusion at L5-S1 extending superiorly behind the L5 vertebral body resu lting in severe thecal sac compression. Additional degenerative changes at the L5-S1 level, as above. Right paracentral disc extrusion at L4-L5, probably impinging the descending right-sided L5-S1 level nerve root. Additional moderate to advanced degenerative spondylosis at L4-L5, as above. Mild degenerative changes from L1 through L3. Reviewed, dictated and finalized at [facility]. Impression: Large left paracentral disc extrusion at L5-S1 extending superiorly behind the L5 vertebral body resulting in severe thecal sac compression. Additional degene rative changes at the L5-S1 level, as above. Right paracentral disc extrusion at L4-L5, probably impinging the descending ri ght-sided L5-S1 level nerve root. Additional moderate to advanced degenerative spondylosis at L4-L5, as above. Mild degenerative changes from L1 through L3.
--- NOTE | ~2025-01-13 | MR_ITS ---
MRI of the cervical spine Clinical History: Chronic neck pain Technique: Axial T2-weighted and gradient images, and sagittal T1-weighted, T2-weighted, and STIR abelardo ges were acquired. Findings: No fracture seen. 3 mm anterolisthesis of C3 over C4 present. No suspicious bone marrow sig nal abnormality. At C2-C3, there is no disc bulge or herniation. There is bilateral facet arthropathy, right worse carole n left. No spinal canal stenosis, cord compression, or left neural foraminal narrowing. Possible mini mal right neural foraminal narrowing. At C3-C4, there is minimal disc osteophyte complex with bilateral facet arthropathy. There is bilater al neural foraminal narrowing, left worse than right. No canal stenosis or cord compression. At C5-C6, there is no disc bulge or herniation. No spinal canal stenosis or cord compression. Neural foramina are preserved despite the lateral facet arthropathy. At C5-C6, there is degenerative disc narrowing with disc osteophyte complex, with mild canal stenosis and possible minimal flattening the ventral cord. There is bilateral neural foraminal narrowing, rig ht worse than left. At C6-C7, there is mild disc osteophyte complex with superimposed small central disc protrusion. Ther e is minimal flattening the ventral cord. Bilateral neural foramina are preserved. No abnormal signal evident in the spinal cord. Paravertebral soft tissues are unremarkable. Impression: Moderate degenerative spondylosis at C5-C6 and C6-C7, as detailed above. Mild degenerative change in the remainder of the cervical spine, as above. Reviewed, dictated and finalized at [facility]. Impression: Moderate degenerative spondylosis at C5-C6 and C6-C7, as detailed above. Mild degenerative change in the remainder of the cervical spine, as above.
== END 2025-01-13 08:05 | disposition home or self-care (01) ==
LOC: MICIMG 08:04
PROVIDERS: PCP Registered Nurse
DX: M47.812 Spondylosis without myelopathy or radiculopathy, cervical region (principal); M51.27 Other intervertebral disc displacement, lumbosacral region; G95.29 Other cord compression; M47.816 Spondylosis without myelopathy or radiculopathy, lumbar region; M47.817 Spondylosis without myelopathy or radiculopathy, lumbosacral region
CPT/HCPCS: 72141; 72148

== ENCOUNTER 2025-03-17 10:47 | Emergency (ER) | payer MEDICARE, SELFPAY ==
[2025-03-17] VITALS (10 sets, daily range): BP systolic 105–125; BP diastolic 66–104; PULSE 106–118; RESP 16–20; TEMP 36.4; O2SAT 90–100
--- NOTE | ~2025-03-17 | US_ITS ---
EXAMINATION: US venous doppler LE , 03/17/2025 12:31 CDT HISTORY: L thigh pain x 5 days Comparison: None Technique: Beckman-scale and color Doppler images were attempted of the lower saphenofemoral junction, common femoral vein,superficial femoral vein, proximal deep femoral vein, proximal deep femoral vein, popliteal vein and posterior tibial veins. Findings: Deep Venous System:Normal flow, augmentation and compressibility. No echogenic thrombus identified. The contralateral saphenofemoral junction appears unremarkable. Superficial Venous SystemNo superficial thrombophlebitis. Soft tissues: Soft tissues are unremarkable. Impression: Negative for DVT. Reviewed, dictated and finalized at location A. Impression: Negative for DVT.
--- NOTE | ~2025-03-17 | CT_ITS ---
EXAMINATION: CT lumbar spine wo malaika, 03/17/2025 12:15 CDT HISTORY: Fall, back pain radiating down L leg COMPARISON: No comparisons available. Technique: Axial images were obtained of the spine per protocol. One or more of the following dose reduction techniques were used: automated exposure control, adjustment of the mA and/or kV according to patient size, use of iterative reconstruction technique. Unless otherwise stated, incidental findings do not require dedicated follow up imaging Findings: The vertebral heights are intact. No fracture or subluxation. There is severe loss of disc height at L3-4, L4-5 and L5-S1 with disc osteophyte complex at L4-5 and L5-S1 producing severe canal and foraminal stenosis, MRI suggested to further evaluate. Soft tissues unremarkable Impression: 1. No acute fracture. Degenerative changes. Reviewed, dictated and finalized at location A. Impression: 1. No acute fracture. Degenerative changes.
--- NOTE | ~2025-03-17 | XR_ITS ---
EXAMINATION: XR hip LT 2V w AP pelvis DATE: 03/17/2025 12:58 INDICATION: Left hip/back pain after fall TECHNIQUE: 3 images of the left hip were obtained COMPARISON: None. FINDINGS: Bone mineralization is within normal limits. There is bowel gas and stool projecting over the pelvis which limits evaluation. There are a few less than 1.0 cm calcifications projecting over the pelvis which may represent phleboliths, however, a distal ureteral stone or bladder stone or possible. No fracture identified. No significant degenerative change in the hips identified. IMPRESSION: 1. No fracture identified. If symptoms persist or worsen, consider a CT or MRI for further assessment Reviewed, dictated and finalized at location Q.
--- OUTSIDE RECORDS SUMMARY | 2025-03-17 11:20 | XMS_ITS | Patient Health Record ---
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 by primary psychiatric care provider 02/24/2025 Generalized anxiety disorder (ICD-10 - F41.1) 02/24/2025 MDD (major depressive disorder), recurrent episode, moderate (ICD-10 - F33.1) BDI score on 02/24/2025: 22 02/25/2025 MDD (major depressive disorder), recurrent episode, moderate (ICD-10 - F33.1) BDI score on 02/24/2025: 22 - current psychiatric medication regimen from PCP: * Bupropion XL 150 mg daily * Venlafaxine 75 mg 1 capsule in the morning, 2 at bedtime * Mirtazapine 15 mg at bedtime 03/03/2025 Generalized anxiety disorder (ICD-10 - F41.1) 03/03/2025 MDD (major depressive disorder), recurrent episode, moderate (ICD-10 - F33.1) BDI score on 02/24/2025: 22 - current psychiatric medication regimen from PCP: * Bupropion XL 150 mg daily * Venlafaxine 75 mg 1 capsule in the morning, 2 at bedtime * Mirtazapine 15 mg at bedtime 03/10/2025 Major depressive disorder, recurrent severe without psychotic features (ICD-10 - F33.2) 03/10/2025 Generalized anxiety disorder (ICD-10 - F41.1) 03/10/2025 Chronic insomnia (ICD-10 - F51.04) 03/03/2025 Chronic insomnia (ICD-10 - F51.04) 01/08/2025 Chronic insomnia (ICD-10 - F51.04) Risks of Chronic Zolpidem (Ambien) Use - Long-term use can lead to physical and psychological dependence. - Stopping suddenly may cause withdrawal symptoms like anxiety, tremors, and rebound insomnia. Gradual tapering is recommended to minimize withdrawal effects - Over time, your body may require higher doses to achieve the same effect, increasing the risk of overdose and side effects. - Chronic use may affect memory, concentration, and decision-making. - Especially in older adults, Ambien can cause dizziness and impaired coordination, increasing the risk of falls and fractures. - Some users engage in activities (e.g., driving, eating, or talking) while not fully awake and have no memory of these actions. - Long-term use is linked to depression, anxiety, and mood swings. - Can worsen existing mental health conditions. - Combining Ambien with alcohol, benzodiazepines, or opioids increases the risk of respiratory depression, overdose, and . 02/24/2025 Chronic insomnia (ICD-10 - F51.04) 02/25/2025 Generalized anxiety disorder (ICD-10 - F41.1) 02/13/2025 Generalized anxiety disorder (ICD-10 - F41.1) 02/10/2025 Generalized anxiety disorder (ICD-10 - F41.1) 02/06/2025 Generalized anxiety disorder (ICD-10 - F41.1) 02/03/2025 Generalized anxiety disorder (ICD-10 - F41.1) 01/29/2025 Generalized anxiety disorder (ICD-10 - F41.1) 12/11/2024 Chronic insomnia (ICD-10 - F51.04) Risks of Chronic Zolpidem (Ambien) Use - Long-term use can lead to physical and psychological dependence. - Stopping suddenly may cause withdrawal symptoms like anxiety, tremors, and rebound insomnia. Gradual tapering is recommended to minimize withdrawal effects - Over time, your body may require higher doses to achieve the same effect, increasing the risk of overdose and side effects. - Chronic use may affect memory, concentration, and decision-making. - Ambien can cause dizziness and impaired coordination, increasing the risk of falls and injuries. - Some users engage in activities (e.g., driving, eating, or talking) while not fully awake and have no memory of these actions. - Long-term use is linked to depression, anxiety, and mood swings. - Can worsen existing mental health conditions. - Combining Ambien with alcohol, benzodiazepines, or opioids increases the risk of respiratory depression, overdose, and . 12/09/2024 Chronic insomnia (ICD-10 - F51.04) 03/31/2024 Chronic insomnia (ICD-10 - F51.04) cont zolpidem 10mg qhs (insurance will not approve ER) practice good sleep hygeine (also mirtazapine per PCP) have given sleep hygeine handout 10/13/2024 Major depressive disorder, recurrent, mild (ICD-10 [...] medication regimen fom PCP, including: * Bupropion XL 150 mg daily * Venlafaxine 75 mg 1 capsule in the morning, 2 at bedtime * Mirtazapine 15 mg at bedtime - [...] potential cognitive effects and tolerance - Encourage non-pharmacologi derrick anxiety management techniques, such as staying busy [...] 03/17/2024 Generalized anxiety disorder (ICD-10 - F41.1) 02/18/2025 Chronic insomnia (ICD-10 - F51.04) 1. Depression Spravato 84 mg twice a week 2. Anxiety 3. Chronic Insomnia 02/20/2025 Generalized anxiety disorder (ICD-10 - F41.1) 12/01/2024 Chronic insomnia (ICD-10 - F51.04) CancelRx Response got Denied on 2024-12-11 10:09:46 for 'Zolpidem Tartrate 10 MG Tablet'Pharmacy Notes: Patient unknown to the Prescriber. 07/21/2024 Major depressive disorder, recurrent, mild (ICD-10 [...] up 3 months, sooner if concerns arise 02/20/2025 Chronic insomnia (ICD-10 - F51.04) 03/31/2024 Major depressive disorder, recurrent, mild (ICD-10 - F33.0) mild, manageable (also bupropion and venlafaxine per PCP) 10/13/2024 Chronic insomnia (ICD-10 - F51.04) Risks of Chronic Zolpidem (Ambien) Use - Long-term use can lead to physical and psychological dependence. - Stopping suddenly may cause withdrawal symptoms like anxiety, tremors, and rebound insomnia. Gradual tapering is recommended to minimize withdrawal effects - Over time, your body may require higher doses to achieve the same effect, increasing the risk of overdose and side effects. - Chronic use may affect memory, concentration, and decision-making. - Ambien can cause dizziness and impaired coordination, increasing the risk of falls and injuries. - Some users engage in activities (e.g., driving, eating, or talking) while not fully awake and have no memory of these actions. - Long-term use is linked to depression, anxiety, and mood swings. - Can worsen existing mental health conditions. - Combining Ambien with alcohol, benzodiazepines, or opioids increases the risk of respiratory depression, overdose, and . Depression Assessment: Patient reports mood fluctuations attributed [...] medication regimen fom PCP, including: * Bupropion XL 150 mg daily * Venlafaxine 75 mg 1 capsule in the morning, 2 at bedtime * Mirtazapine 15 mg at bedtime - [...] potential cognitive effects and tolerance - Encourage non-pharmacologi derrick anxiety management techniques, such as staying busy [...] up 3 months, sooner if concerns arise 12/11/2024 Encounter for screening for depression (ICD-10 - Z13.31) 01/29/2025 Chronic insomnia (ICD-10 - F51.04) 02/03/2025 Chronic insomnia (ICD-10 - F51.04) 02/06/2025 Chronic insomnia (ICD-10 - F51.04) 02/10/2025 Chronic insomnia (ICD-10 - F51.04) 02/13/2025 Chronic insomnia (ICD-10 - F51.04) 01/08/2025 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 - Stopping suddenly may cause withdrawal symptoms like anxiety, tremors, and rebound insomnia. Gradual tapering is recommended to minimize withdrawal effects - Over time, your body may require higher doses to achieve the same effect, increasing the risk of overdose and side effects. - Chronic use may affect memory, concentration, and decision-making. - Especially in older adults, Ambien can cause dizziness and impaired coordination, increasing the risk of falls and fractures. - Some users engage in activities (e.g., driving, eating, or talking) while not fully awake and have no memory of these actions. - Long-term use is linked to depression, anxiety, and mood swings. - Can worsen existing mental health conditions. - Combining Ambien with alcohol, benzodiazepines, or opioids increases the risk of respiratory depression, overdose, and . 02/25/2025 Sedative dependence (ICD-10 - F13.20) Risks of Chronic Zolpidem (Ambien) Use - Long-term use can lead to physical and psychological dependence. - Stopping suddenly may cause withdrawal symptoms like anxiety, tremors, and rebound insomnia. Gradual tapering is recommended to minimize withdrawal effects - Over time, your body may require higher doses to achieve the same effect, increasing the risk of overdose and side effects. - Chronic use may affect memory, concentration, and decision-making. - Especially in older adults, Ambien can cause dizziness and impaired coordination, increasing the risk of falls and fractures. - Some users engage in activities (e.g., driving, eating, or talking) while not fully awake and have no memory of these actions. - Long-term use is linked to depression, anxiety, and mood swings. - Can worsen existing mental health conditions. - Combining Ambien with alcohol, benzodiazepines, or opioids increases the risk of respiratory depression, overdose, and . 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) 01/29/2025 jail prescription benzodiazepine use (ICD-10 - Z79.899) 12/11/2024 Encounter for screening for cardiovascular disorders (ICD-10 - Z13.6) 10/13/2024 Encounter for screening for depression (ICD-10 [...] medication regimen fom PCP, including: * Bupropion XL 150 mg daily * Venlafaxine 75 mg 1 capsule in the morning, 2 at bedtime * Mirtazapine 15 mg at bedtime - [...] potential cognitive effects and tolerance - Encourage non-pharmacologi derrick anxiety management techniques, such as staying busy [...] important in general and with sedating meds 01/29/2025 Sedative dependence (ICD-10 - F13.20) 02/03/2025 Sedative dependence (ICD-10 - F13.20) 02/06/2025 Sedative dependence (ICD-10 - F13.20) 02/10/2025 Sedative dependence (ICD-10 - F13.20) 02/13/2025 Sedative dependence (ICD-10 - F13.20) 02/25/2025 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 - Chronic benzodiazepine use can lead to physical and psychological dependence. - Withdrawal symptoms include rebound anxiety, insomnia, agitation, tremors, and, in severe cases, seizures. - Tapering is often required to prevent withdrawal complications. - Long-term use is linked to memory problems, reduced attention, and delayed thinking/reactio ns. - Some studies suggest an increased risk of dementia, though causality remains debated. - Benzodiazepines cause sedation, impaired coordination, and muscle weakness, significantly increases fall risk. This can be especially dangerous in those on blood thinners and with medical conditions such as osteoporosis - The elderly are particularly vulnerable due to decreased metabolism and clearance of benzodiazepines, leading to prolonged sedation and enhanced adverse effects. - Increased sensitivity to cognitive impairment, delirium, and paradoxical reactions (e.g., agitation, aggression). 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 - Chronic benzodiazepine use can lead to physical and psychological dependence. - Withdrawal symptoms include rebound anxiety, insomnia, agitation, tremors, and, in severe cases, seizures. - Tapering is often required to prevent withdrawal complications. - Long-term use is linked to memory problems, reduced attention, and delayed thinking/reactio ns. - Some studies suggest an increased risk of dementia, though causality remains debated. - Benzodiazepines cause sedation, impaired coordination, and muscle weakness, significantly increases fall risk. This can be especially dangerous in those on blood thinners and with medical conditions such as osteoporosis - The elderly are particularly vulnerable due to decreased metabolism and clearance of benzodiazepines, leading to prolonged sedation and enhanced adverse effects. - Increased sensitivity to cognitive impairment, delirium, and paradoxical reactions (e.g., agitation, aggression). 01/08/2025 Encounter for screening for depression (ICD-10 - Z13.31) 01/08/2025 Encounter for screening for cardiovascular disorders (ICD-10 - Z13.6) 03/17/2024 Other Client states she went through [...] 3 months, sooner if concerns arise 10/13/2024 Other note* UDS was done but results never documented, sample was discarded* Depression Assessment: Patient reports mood fluctuations attributed [...] medication regimen fom PCP, including: * Bupropion XL 150 mg daily * Venlafaxine 75 mg 1 capsule in the morning, 2 at bedtime * Mirtazapine 15 mg at bedtime - [...] potential cognitive effects and tolerance - Encourage non-pharmacologi derrick anxiety management techniques, such as staying busy [...] up 3 months, sooner if concerns arise 12/11/2024 Other - current psychiatric medication regimen from PCP: * Bupropion XL 150 mg daily * Venlafaxine 75 mg 1 capsule in the morning, 2 at bedtime * Mirtazapine 15 mg at bedtime Depression with anxiety Assessment: Patient presents with worsening depression and anxiety. The sudden withdrawal from estradiol, progesterone, and lorazepam likely contributed to the acute worsening of symptoms. She is dependent on lorazepam and zolpidem for sleep and daily functioning. She inquires about TMS, noting she has continued to experience depression despite her current antidepressant regimen, and has been considering it but feels now she would like to pursue. Plan: - Explore Transcranial Magnetic Stimulation (TMS) as a treatment option - Follow up in 4 weeks Chronic benzodiazepine dependence Assessment: Patient has developed dependence on benzodiazepines due to long-term use. Recent abrupt discontinuation led to withdrawal symptoms, including rebound insomnia, depression, and anxiety. Patient reports inability to function without lorazepam. Plan: - Continue current benzodiazepine regimen to prevent withdrawal - Educate patient on risks of long-term benzodiazepine use and dependence - Consider gradual taper plan after stabilization of mood and anxiety symptoms Menopausal symptoms Assessment: Patient experienced severe menopausal symptoms, including hot flashes and mood disturbances, following abrupt discontinuation of hormone therapy (estradiol and progesterone) for 3 weeks due to pre-authorizatio n issues. Plan: - Ensure continuation of hormone therapy (estradiol and progesterone) - Educate patient on importance of consistent hormone therapy and risks of sudden discontinuation - Monitor for resolution of acute menopausal symptoms 01/08/2025 Karmen Evangelista, female, presents with ongoing depression, anxiety, and sleep disturbances, reporting lack of motivation and interest in activities. Major Depressive Disorder Assessment: Patient reports ongoing depressive symptoms including lack of motivation, anhedonia, and decreased appetite with weight loss. Sleep is disrupted, with only 4 hours of consolidated sleep per night. Energy levels are low, with only a 2-hour window of productivity in the morning. Patient denies current suicidal ideation. Previous treatments have included multiple medication trials. Recent considerations for TMS were denied by insurance due to insufficient prior therapy sessions. Spravato (esketamine) has been approved by insurance as a potential treatment option for treatment-resist ant depression. Plan: - Continue bupropion - Continue venlafaxine - Initiate Spravato (esketamine) treatment: - Patient education provided on treatment protocol, including need for transportation and 2-hour post-administrat ion monitoring - Informed consent obtained, discussing potential response timeline and treatment schedule - Follow up to reassess symptoms and treatment efficacy Anxiety Disorder Assessment: Patient reports ongoing anxiety, exacerbated by family stressors including daughter's issues with foster children and gambling relapse. Currently managed with long-term benzodiazepine use (lorazepam), which raises concerns about cognitive impairment, tolerance, and potential adverse effects on mood and anxiety over time. Patient describing it as a magic pill that helped her see clearly when she was severely depressed. The patient reports no desire to change any of her current medications, long discussion had. Plan: - Continue lorazepam - Educate patient on risks associated with long-term benzodiazepine use - Monitor for signs of cognitive impairment or adverse effects Insomnia Assessment: Patient reports disrupted sleep patterns, achieving only 4 hours of consolidated sleep per night. This may be related to ongoing depression and anxiety symptoms, as well as potential effects of long-term benzodiazepine use. Plan: - Monitor sleep patterns and their correlation with mood and anxiety symptoms - Reassess sleep hygiene and provide education as needed 01/29/2025 Other 1. Major Depressive Disorder - Patient rates depression at 01/29. - Reports ongoing depressive symptoms. - Denies suicidal ideation or self-harm thoughts. - Sleep is disturbed, approximately 6 hours per night. - Decreased appetite. - No hallucinations, delusions, or paranoia reported. - Plan: a. Administer Spravato as scheduled. b. Patient expressed understanding of risks and benefits of Spravato treatment. c. Instruct patient not to drive after Spravato administration. d. Continue current medications as prescribed by primary psychiatric care providerKaren. e. Schedule next preventive treatment for 02-03-2025. f. Follow-up appointment with primary psychiatric care providerKaren, scheduled for 02-25-2025. 2. Generalized Anxiety Disorder - Patient rates anxiety at 04/01. - Reports significant anxiety symptoms. - No specific anxiety-provokin g factors or situations mentioned. - Plan: a. Continue current medications as prescribed by primary psychiatric care providerKaren. b. Follow-up appointment with primary psychiatric care providerKaren, scheduled for 02-25-2025. 3. Sleep Disturbance - Patient reports sleep disturbances. - Approximately 6 hours of sleep per night. 4. Appetite - Patient reports decreased appetite. 02/03/2025 Other 1. Major Depressive Disorder - Patient rates depression as 12/30. - Sleep is approximately 6 hours per night. - Appetite has decreased. - Patient denies suicidal ideation, homicidal ideation, hallucinations, delusions, or paranoia. - Currently undergoing Spravato treatment for depression management. - Plan: a. Administer Spravato treatment today. b. Schedule next Spravato treatment for 02-06-2025. c. Continue current medication regimen. d. Follow-up appointment with primary psychiatric care provider Nayla on 02-25-2025. 2. Anxiety - Patient rates anxiety as 03/01. - No specific anxiety symptoms or triggers discussed in this encounter. - Plan: a. Continue current medication regimen. b. Follow-up appointment with primary psychiatric care provider Nayla on 02-25-2025. 3. Spravato Administration - Patient expresses understanding of risks and benefits associated with Spravato treatment. - Patient understands the importance of not driving after administration. - Plan: a. Administer Spravato treatment today. b. Schedule next Spravato treatment for 02-06-2025. c. Reinforce driving restrictions after Spravato administration. 02/10/2025 Other 1. Depression - Patient rates depression at 01/29. - Plan: a. Continue current psychiatric medications. b. Follow-up appointment with primary psychiatric care provider Nayla scheduled for 02/25/2025. 2. Anxiety - Patient rates anxiety at 03/01. - Plan: a. Continue current psychiatric medications. b. Follow-up appointment with primary psychiatric care provider Nayla scheduled for 02/25/2025. 3. Sleep Disturbances - Patient reports sleep difficulties. - Plan: a. Continue monitoring sleep patterns. 4. Appetite - Patient reports decreased appetite. - Plan: a. Continue monitoring appetite changes. 5. Suicidal Ideation, Homicidal Ideation, Hallucinations, Delusions, and Paranoia - Patient denies all of the above. - Plan: a. Continue monitoring for any changes in mental sta 7. Spravato Treatment - Patient is undergoing Spravato treatment. - Risk-preventive administration performed. - Patient expressed understanding of risks and benefits. - Plan: a. Next Spravato treatment scheduled for 02/13/2025. b. Patient instructed not to drive after administration. 02/13/2025 Other 1. Major Depressive Disorder - Patient rates depression at 03/01. - Plan: a. Administer Spravato as scheduled. b. Next Spravato treatment scheduled for February 17, 2025. c. Follow-up appointment with primary psychiatric care provider Nayla on February 25, 2025. d. Patient expressed understanding of risks and benefits of Spravato treatment. e. Patient instructed not to drive after Spravato administration. 2. Anxiety - Patient rates anxiety at 01/29. - Plan: a. Continue current management (specific interventions not discussed). b. Follow-up appointment with primary psychiatric care provider Nayla on February 25, 2025. 3. Insomnia - Patient reports poor sleep. - Plan: a. Continue current management (specific interventions not discussed). b. Follow-up appointment with primary psychiatric care provider Nayla on February 25, 2025. 4. Suicidal Ideation, Hallucinations, Delusions, and Paranoia - Patient denies suicidal ideation, hallucinations, delusions, or paranoia. 02/20/2025 Other 1. Depression - Patient rates depression at 11/29. - Plan: a. Administer Spravato as scheduled. b. Next Spravato treatment scheduled for 02-24-2025. c. Follow-up appointment with primary psychiatric care provider (Nayla) on 02-25-2025. 2. Anxiety - Patient rates anxiety at 10/30. - Plan: a. Continue current medication regimen (no side effects reported). b. Follow-up appointment with primary psychiatric care provider (Nayla) on 02-25-2025. 3. Suicidal Ideation and Self-Harm - Patient denies suicidal ideation, self-harm thoughts, or thoughts of harming others. 4. Follow-up - Next Spravato treatment scheduled for 02-24-2025. - Follow-up appointment with primary psychiatric care provider (Nayla) on 02-25-2025. 02/24/2025 Other 1. Major Depressive Disorder - Patient reports severe depression, rating it as 9 out of 10. - Sleep is poor, with only approximately 4 hours of sleep last night. - Appetite is reported as normal. - Patient denies suicidal ideation, hallucinations, delusions, and paranoia. - Currently undergoing Spravato treatment, indicating treatment-resist ant depression. - Plan: a. Administer Spravato as scheduled. b. Continue current medications as prescribed. c. Provided list of therapy services. d. Sent request for in-house therapist placement. e. Discussed [facility] walk-in clinic therapy options. f. Provided number for front desk host to inquire about therapy availability on different days. g. Follow-up appointment with primary psychiatric care provider Nayla on 02/25/2025. 2. Generalized Anxiety Disorder - Patient reports severe anxiety, rating it as 9 out of 10. - No reported side effects from current medications. - Plan: a. Continue current medications as prescribed. continue current treatment as prescribed by primary psychiatric care provider 02/25/2025 Other Veronica Evangelista, female patient with history of depression and anxiety, presenting for follow-up of Spravato treatment and medication management. Major Depressive Disorder Assessment: Patient reports improvement in depressive symptoms with Spravato treatment. PHQ-9 score decreased from 15 (moderately severe) to 8. Patient notes increased motivation to engage in activities with grandchildren and ability to get out of bed. Family members have observed positive changes. Patient experienced a period of worsened mood (Sunday through Sunday) but noted improvement after Sunday's treatment session. Despite ongoing challenges, patient has maintained treatment adherence. Plan: - Transition Spravato treatment from twice weekly to once weekly - Follow up in 4 weeks to reassess response to treatment - Continue current medications from PCP: * mirtazapine * Wellbutrin SR * venlafaxine XR - Recommend considering group therapy for coping skills and socialization - Suggest exploring [facility] free support groups, including online options - Consider individual talk therapy Anxiety Disorder Assessment: Patient reports ongoing anxiety, particularly related to treatment appointments. She has implemented coping strategy of scheduling appointments earlier in the day to reduce anticipatory anxiety. Spravato treatment may be contributing to improvement in anxiety symptoms. Plan: - Continue lorazepam, discussed long-term risks. Explore changes to regimen next visit - Monitor anxiety symptoms and response to treatment Insomnia Assessment: Patient reports long-term use of Ambien (20 years) with diminishing effectiveness. Currently experiencing fragmented sleep, with initial onset within 30 minutes but awakening after 3-4 hours without return to sleep. She expresses fear of discontinuing medication due to potential withdrawal and rebound insomnia. Plan: - Continue Ambien for now to avoid disrupting current treatment regimen - Discuss potential for addressing sleep medication dependence in the future, contingent on improvement in depression and anxiety symptoms - Monitor sleep quality and duration Medical Decision Making Veronica Evangelista is a female patient with a history of depression and anxiety, currently undergoing Spravato treatments. The patient reports improvement in mood and motivation, with depression scores decreasing from 15 (moderately severe) to 8. Clinical reasoning supports continuing Spravato treatments, transitioning from twice weekly to once weekly as the patient enters the maintenance phase. The patient's response to treatment, including reduced crying and increased activity post-treatment, suggests positive neuroplasticity effects. Differential diagnoses include ongoing depression and anxiety, with treatment response indicating improvement. Sleep disturbances remain a concern, potentially related to long-term use of zolpidem. The clinician considers the possibility of addressing sleep issues in the future, contingent upon continued improvement in depression and anxiety symptoms with Spravato treatment. 03/03/2025 Other continue current treatment as prescribed by primary psychiatric care provider 1. Major Depressive Disorder - Patient rates depression at 12/30. - Plan: a. Administer Spravato as scheduled. b. Patient expressed understanding of risks and benefits of Spravato treatment. c. Patient instructed not to drive after Spravato administration. d. Next Spravato treatment scheduled for 03-10-2025. e. Follow-up appointment with primary psychiatric care provider Nayla scheduled for 03-27-2025. 2. Anxiety - Patient rates anxiety at -12/30. 3. Suicidal Ideation and Self-Harm - Patient denies thoughts of suicide or self-harm. 4. Thoughts of Harming Others - Patient denies thoughts of hurting others. 5. Hallucinations, Delusions, and Paranoia - Patient denies hallucinations, delusions, or paranoia. 6. Sleep - Patient reports approximately 8 hours of sleep. 7. Appetite - Patient reports mildly increased appetite. 8. Medication Management - Patient denies side effects from current medications. 9. Physical Complaints - No new physical complaints reported. 03/10/2025 Other continue current treatment as prescribed by primary psychiatric care provider 1. Major Depressive Disorder - Patient rates depression at 8/10. - Plan: a. Administer Spravato as scheduled. b. Next Spravato treatment scheduled for March 17, 2025. c. Continue group therapy. d. Follow-up appointment with primary psychiatric care provider Nayla on March 27, 2025. 2. Anxiety - Patient rates anxiety at 6/10. - Plan: a. Continue current treatment approach. b. Monitor anxiety symptoms. 3. Sleep Disturbance - Sleep reduced to approximately 6 hours per night. - Plan: a. Monitor sleep patterns. b. Address sleep issues as depression improves with treatment. 4. Appetite Changes - Patient reports increased appetite. - Plan: a. Monitor appetite and weight changes. 5. Risk Assessment - Patient denied thoughts of suicide. - Patient denied thoughts of wanting to hurt herself or anybody else. - Patient denied experiencing hallucinations, delusions, or paranoia. - Plan: a. Continue monitoring suicidal ideation at each visit. b. Patient has scheduled follow-up appointments for ongoing care. 6. Treatment Management - Current treatment includes Spravato administration and group therapy. - Plan: a. Continue Spravato treatment as scheduled. b. Patient expressed understanding of risks and benefits of Spravato treatment. c. Patient expressed understanding of post-administrat ion precautions. d. Continue group therapy with next appointment with Mariluz on April 08, 2025. Follow-up: - Next Spravato treatment scheduled for March 17, 2025. - Plan: a. Follow-up appointment with primary psychiatric care provider Nayla on March 27, 2025. b. Continue group therapy sessions. 12/19/2024 Other Electronic Prio r Authorization was requested for Zolpidem Tartrate ER 12.5 MG Tablet Extended Release. Provider can order medication once approval received. Plan Of Treatment Next Appt Details Provider Name:Harish Olivia Mccord, 03/24/2025 10:00:00 AM, [address] [facility] [address], [facility] [address], [place], [address], Provider Name:Nayla Oc loya, 03/27/2025 09:00:00 AM, [address], [place], [address], Provider Name:Harish Mccord, 03/31/2025 10:00:00 AM, [address], [address], [place], [address], Provider Name:Harish Mccord, 04/07/2025 10:00:00 AM, [address], [place], [address], Provider Name:Mariluz louis, 04/08/2025 04:00:00 PM, [facility], [place], [address], Provider Name:Harish Mccord, 04/14/2025 10:00:00 AM, [facility], [place], [address], Provider Name:Mariluz louis, 04/15/2025 04:00:00 PM, [facility], [place], [address], Provider Name:Harish Mccord, 04/21/2025 10:00:00 AM, [facility], [place], [address], Provider Name:Mariluz louis, 04/22/2025 04:00:00 PM, [facility], [place], [address], Provider Name:Mariluz louis, 04/29/2025 04:00:00 PM, [facility], [place], [address], Provider Name:Mariluz louis, 05/06/2025 04:00:00 PM, [facility], [place], [address], Provider Name:Mariluz Patel ter, 05/13/2025 04:00:00 PM, [address], [place], [address], Provider Name:Mariluz Patel heriberto, 05/20/2025 04:00:00 PM, [address], [place], [address], Provider Name:Mariluz Paredesbladimir louis, 05/27/2025 04:00:00 PM, [facility] [address], [place], [address], Provider Name:Mariluz Paredesbladimir louis, 06/03/2025 04:00:00 PM, [facility] [address], [place], [address], Provider Name:Mariluz Paredesbladimir louis, 06/10/2025 04:00:00 PM, [facility] [address], [place], [address], Provider Name:Mariluz Paredesbladimir louis, 06/17/2025 04:00:00 PM, [address], [place], [address], Provider Name:Mariluz Patel heriberto, 06/24/2025 04:00:00 PM, [address], [address], [place], [address], Insurance Providers Payer Name Payer Address Payer Phone Subscriber Number Group Number Insured Name Patient Relationship to Insured Coverage Start Date Coverage End Date [facility] Medicare Replacement/ Advantage - Ppo [address] [address] [place] [address] [id number] VERONICA EVANGELISTA Self - patient is the insured Medications Administered Medication Instructions Date of Administration Dosage Notes Spravato (84 MG Dose) 01/29/2025 84 mg Spravato (84 MG Dose) 02/03/2025 84 mg Spravato (84 MG Dose) 02/06/2025 84 mg Spravato (84 MG Dose) 02/10/2025 84 mg Spravato (84 MG Dose) 02/13/2025 84 mg Spravato (84 MG Dose) 02/18/2025 84 mg Spravato (84 MG Dose) 02/20/2025 84 mg Spravato (84 MG Dose) 02/24/2025 84 mg Spravato (84 MG Dose) 03/03/2025 84 mg Spravato (84 MG Dose) 03/10/2025 84 mg Medical (General) History Medical History History ICD Code Past Psychiatric History: An xiety Disorder,Psychotic Episode,Major Depressive Episode hypertension hemorrhoidshemorrhoids Surgical History Surgery Date(Month/Year) gastric by pass gallbladder Hospitalization History Reason Date(Month/Year) 06/2024 kidney stone, urosepsis 05/2024 pneumonia
--- OUTSIDE RECORDS SUMMARY | 2025-03-17 11:20 | XMS_ITS | Clinical Summary ---
Author Organization [facility] Address [address] [place] [address] Care Team Providers Care Vice Principal Name Role Phone Keyonna Armstrong FACE HARDENER Primary Care Provider + Allergies No known [...] on file Legal Sex Female 2:06 PM HOLDER PILE DRIVING Gender Identity Not on file Sexual Orientation Not on file Last Filed Vital Signs Vital Sign Reading Time Taken Comments Blood Pressure 104/74 08/26/2019 2:20 PM HOLDER PILE DRIVING Pulse 105 08/26/2019 2:20 PM HOLDER PILE DRIVING Temperature 36.6 C (97.9 F) 08/26/2019 2:20 PM HOLDER PILE DRIVING Respiratory Rate - - Oxygen Saturation 98% 08/26/2019 2:20 PM HOLDER PILE DRIVING Inhaled Oxygen Concentration - - Weight 135.3 kg (298 lb 3.2 oz) 08/26/2019 2:20 PM HOLDER PILE DRIVING Height 165.1 cm (5' 5) 08/26/2019 2:20 PM HOLDER PILE DRIVING Body Mass Index 49.62 08/26/2019 2:20 PM HOLDER PILE DRIVING Plan of Treatment Health Maintenance Due Date Last Done Comments Pre-Diabetes and Diabetes Screening 1968 HEPATITIS B VACCINES (1 of 3 - 19+ 3-dose series) 1987 HPV/Cotest (21-29) 1989 CERVICAL CANCER SCREENING 1998 HPV/Cotest (30-65) 1998 PAP SMEAR 1998 BREAST CANCER SCREENING 2008 FIT-DNA Q 3 years 2013 FIT/FOBT Q 1 year 2013 Flex Sig/CT Colonography Q 5 years 2013 ZOSTER VACCINE (2 of 2) 08/19/2023 06/24/2023 INFLUENZA VACCINE (#1) 2025 05/19/2020, 2018 DTAP/TDAP/TD VACCINES (3 - Td or Tdap) 04/25/2026, 04/25/2016 COLORECTAL SCREENING 01/11/2030 01/12/2020 Colorectal Cancer Screening 01/11/2030 Care Teams Vice Principal Relationship Specialty Start Date End Date Keyonna Armstrong NP [address] [place] [phone] PCP - General NURSE PRACTITIONER 08/26/19
--- OUTSIDE RECORDS SUMMARY | 2025-03-17 11:20 | XMS_ITS | Encounter Summary ---
Author Organization [facility] Address [address] [place] [address] Care Team Providers Care Poly Packer And Heat Sealer Name Role Phone Keyonna Armstrong Primary Care Provider [phone] Encounter Details Date Type Department Care Team (Late st Contact Info) Description 01/09/2020 Prep for Procedure [facility] [place], [place] [id number] Burt Payne MD [address] [phone] Social History Tobacco Use Types Packs/Day Years [...] Sex Assigned at Female 08/08/2024 10:41 AM VIAL GAUGER Legal Sex Female 5:47 PM CDT Gender Identity Female 07/17/2022 10:27 AM VIAL GAUGER Sexual Orientation Straight 07/17/2022 10 :27 AM VIAL GAUGER COVID-19 Exposure Response Date Recorded In the [...] DETECTED NOT DETECTED 01/10/2020 9:43 PM CDT [facility] Comment: A Not Detected (negative) test result [...] providers and patients using the following websites: https://www.[employer].com/home/Covid-19/HCP/[facility]/fact- sheet.html https://www.[employer].gBox/home/Covid-19/Patients/ [facility]/fact-sheet.html This test has been authorized by the FDA under an Emergency Use Authorization (EUA) for use by authorized laboratories. Due to the current public health emergency, [facility] is receiving a high volume of samples [...] about COVID-19 can be found at the [facility] website: www.[facility]/Covid19. Test performed at [facility] [address] [address] Director: GENE VILLAR DO,MPH NASOPHARYNGEAL SWAB / Unknown 01/09/2020 1:54 PM CDT us Burt Payne MD MICROBIOLOGY - GENERAL ORDERABLE S Final Result [facility] [address] [place] [address], documented in this encounter Visit Diagnoses Diagnosis Encounter for screening colonoscopy- Primary Special screening for malignant neoplasms, colon documented in this encounter Additional Health Concerns Infection Onset Date Last Indicated Resolved Time COVID-19 Rule Out 01/09/2020 01/09/2020 01/10/2020 9:43 PM CDT Assessment Noted Time PHQ-9 Depression Total Score: 22 020 3:46 PM VIAL GAUGER documented as of this encounter Care Teams Poly Packer And Heat Sealer Relationship Specialty Start Date End Date Keyonna Armstrong APNP [address] [place] [id number] PCP - General NURSE PRACTITIONER 05/06/18 documented as of this encounter
--- OUTSIDE RECORDS SUMMARY | 2025-03-17 11:20 | XMS_ITS | Clinical Summary ---
Author Organization 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 Gender Identity Not on file Sexual [...] Office Visit [facility] [address] [address] Woody Horvath MD [address] [place] [address] [place] [id number] Health Maintenance Due Date Last Done Comments Hepatitis C Virus (HCV) Screening 1968 Mammogram 1968 Hepatitis B Immunization (1 of 3 - 19+ 3-dose series) 1987 Pap Smear 1989 Cervical Cancer Screening (CCS) 1998 HPV/Cotest 1998 Cologuard 2013 Immunochemical Fecal Occult Blood 2013 Zoster Immunization (2 of 2) 08/19/2023 06/24/2023 SARS-COV-2 Immunization ( season) 2024 05/30/2022, 11/20/2020, 10/19/2020 Influenza Immunization (#1) 2025 12/0 09/2022, 05/30/2022, 05/04/2021, Additional history exists Pneumococcal Immunization (50+ years) (3 of 3 - PCV20 or PCV21) 05/04/2026 05/04/2021, 05/04/2021, 04/22/2019 Colonoscopy 01/11/2030 01/12/2020 Colorectal Cancer Screening 01/11/2030 Respiratory Syncytial Virus (RSV) Immunization (Adult) (1 - 1-dose 75+ series) 2043 DTaP/Tdap/Td Immunization Discontinued 04/25/2016, 10/2015 TdaP Immunization Completed 04/25/2016 Pneumococcal Immunization Combined Discontinued 05/04/2021, 05/04/2021, 04/22/2019 Human Papillomavirus (HPV) Immunization Aged Out No longer eligible based on patient's age to complete this topic Meningococcal Immunization (ACWY) Aged Out No longer eligible based on patient's age to complete this topic Rotavirus Immunization Aged Out No lo nger eligible based on patient's age to complete this topic Insurance MEDICARE C [facility] Care Teams Carpet Mechanic Relationship Specialty Start Date End Date Keyonna Armstrong, GENEVIEVE, FOREIGN CORRESPONDENT [address] [place] [address] PCP - General Family Medicine 10/19/22
--- OUTSIDE RECORDS SUMMARY | 2025-03-17 11:20 | XMS_ITS | Encounter Summary ---
Author Organization [facility] Address [address] [place] [address] Phone Care Team Providers Care Manuscripts Archivist Name Role Phone Keyonna Armstrong APRN, BETY Primary Care Provider + Encounter Details Date Type Department Care Team (Late Contact Info) Description 02/28/2024 Telephone [facility] [address] [phone] Woody Horvath MD [address] [address] Social History Tobacco Use Types Packs/Day Years Used Date Smoking Tobacco: Never Smokeless Tobacco: Never Alcohol Use Standard Drinks/Week Comments Not Currently 0 (1 standard drink = 0.6 oz pur e alcohol) Comments Unknown Sex and Gender Information Value Date Recorded Sex Assigned at Not on file Legal Sex Female 1:39 PM 911 EM[employer] SERVICES DISPATCHER Gender Identity Not on file Sexual Orientation [...] Visit [facility] [place] [address] [place] [phone] Woody Horvath MD [address] [address] documented as of this encounter Visit Diagnoses Not on filedocumented in this encounter Care Teams Manuscripts Archivist Relationship Specialty Start Date End Date Keyonna Armstrong APRN, UNSCRAMBLER [address] [place] [id number] PCP - General Family Medicine 10/19/22 documented as of this encounter
--- OUTSIDE RECORDS SUMMARY | 2025-03-17 11:20 | XMS_ITS | Clinical Summary ---
Author Organization [facility] Medical [facility] [address] [place] [id number] Care Team Providers Care Color Developer Name Role Phone Keyonna Armstrong Primary Care Provider + Gasper Ochoa MD Unavailable Allergies Active Allergy Reactions Criticality Noted Date Comments Trazodone Hallucinations Medium 08/28/2019 Medications hydroCHLOROthiaz tan (HYDRODIURIL) 25 mg tablet Take 1 tablet (25 mg total) by mouth every morning 0 8 Active lisinopril (PRINIVIL,ZESTRI L) 40 mg tablet Take [...] 425 mg capsule Take by mouth Active progesterone (PROMETRIUM) 200 mg capsule Take 1 capsule (200 mg total) by mouth daily 4 Active diphenhydrAMINE- acetaminophen (TYLENOL PM) 25-500 mg tablet Take 1 tablet by mouth daily Active amLODIPine (NORVASC) 5 mg tablet Take 1 tablet (5 mg total) by mouth daily 4 Active Marlys 0.075 mg/[address] 1 patch on the skin 2 (two) times a week 4 Active gabapentin (NEURONTIN) 100 mg capsuleIndicatio ns:Chronic bilateral low back pain without sciatica TAKE 1 CAPSULE BY MOUTH THREE TIMES DAILY 180 capsule 1 5 Active albuterol HFA (PROVENTIL HFA,VENTOLIN HFA,PROAIR HFA) 90 mcg/actuation inhaler INHALE 2 PUFFS BY MOUTH EVERY 4 HOURS NEEDED FOR WHEEZING AND SHORTNESS OF BREATH 5 Active echinacea 400 mg capsule as directed Orally Active Spravato 56 mg (28 mg x 2) nasal spray Administer 2 sprays into each nostril once 5 Active topiramate (TOPAMAX) 25 mg tabletIndication s:Class 2 obesity due to excess calories without serious comorbidity with body mass index (BMI) of 38.0 to 38.9 in adult Take 1 tablet (25 mg total) by mouth 2 (two) times a day 60 tablet 2 5 04/15/20 25 Active tirzepatide (Mounjaro) 15 mg/0.5 mL pen injector injectionIndicat ions:Controlled type 2 diabetes mellitus without complication, without long-term current use of insulin Inject 0.5 mL (15 mg total) under the skin every 7 days 6 mL 3 5 Active Active Problems Problem Noted Date Diagnosed Date Severe obesity 10/15/2024 Class 2 obesity due to exces s calories without serious comorbidity with body mass index (BMI) of 36.0 to 36.9 in adult 07/01/2024 Assessment & Plan (01/15/2025 3:05 PM CDT): Chronic. Uncontrolled. Goal: 150lb Recommend Nutritional every other Sunday Seminar. Recommended Medication :cont Mounjaro Cont. Topiramate. Assessment & Plan (10/15/2024 2:33 PM CDT): Chronic. Uncontrolled. Goal: 150lb Recommend Nutritional every other Sunday Seminar. Recommended Medication :cont Mounjaro Start Topiramate. Abnormal weight gain 08/28/2023 Controlled type 2 diabetes m ellitus without complication, without long-term current use of insulin 08/28/2023 Overview (08/28/2023): chronic. Uncontrolled. Increase Mounjaro 7.5mg weekly Abnormal platelets 03/04/2020 Leukocytosis (leucocytosis) 08/26/2019 Reactive thrombocytosis 08/26/2019 HTN (hypertension) 06/20/2018 PCOS (polycystic ovarian syndrome) 06/20/2018 Depression 06/20/2018 Menorrhagia 04/02/2018 High serum renin 10/25/2017 Adrenal adenoma 10/11/2017 Chronic fatigue 10/10/2017 Insomnia 10/10/2017 Long-term use [...] (06/26/2018): Added automatically from request for surgery [id number] Calculus of gallbladder with acute cholecystitis without obstruction 06/20/20182018 Body mass index (BMI) of 50-59.9 in adult 10/10/2017 10/15/2024 Class 3 severe obesity due t o excess calories without serious comorbidity with body mass index (BMI) of 45.0 to 49.9 in adult 09/23/2013 Encounters Date Type Department Care Team Description 03/02/2025 Telephone [facility] Orthopedics and Sports Medicine [address] [place] [phone] Katherine Mueller MA 02/25/2025 Telephone [facility] Family Medicine at [address] [phone] Mark Wheat MD 01/15/2025 2:45 PM CDT Office Visit [facility] Family Medicine at [address] [phone] Mark Wheat MD Class 2 obesity due to excess calories without serious comorbidity with body mass index (BMI) of 38.0 to 38.9 in adult (Primary Dx); Controlled type 2 diabetes mellitus without complication, without long-term current use of insulin ([facility]) 01/14/2025 Telephone [facility] Orthopedics and Sports Medicine [address] [place] [phone] Valentina Curtis NP 01/14/2025 Orders Only [facility] Medicine [address] [place] [phone] Gloria Bautista MD 12/19/2024 Telephone [facility]ics and Sports Medicine [address] [place] [phone] Katherine Mueller MA 12/17/2024 9:30 AM CDT Office Visit [facility] Sports Medicine [address] [place] [phone] Valentina Curtis NP Myofascial pain syndrome (Primary Dx); Chronic neck pain; Protrusion of cervical intervertebral disc, C6-C7; Arthropathy of cervical facet joint, multilevel bilateral; 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 cervical vertebra; Spondylolisthesis of cervical region- grade 1 anterolisthesis of C3 on C4 and grade 1 retrolisthesis of C5 on C6. Grade 1 anterolisthesis of C7 on T1. ; Chronic bilateral low back pain with left-sided sciatica; Neural foraminal stenosis of lumbar spine, L4-L5, L5-S1; Herniated lumbar intervertebral disc, left L5-S1, right L4-L5; Lumbar facet arthropathy, multilevel, severe L5-S1; Degeneration of intervertebral disc of lumbar region with discogenic back pain; Anterolisthesis of lumbar spine, mild L1 on L2, L2 on L3, L3 on L4 from Last 3 Months Immunizations Immunization Administration Dates Next Due DTaP, Unspecified 04/25/2016 Influenza, Quadrivalent, Jocelyn l Culture-based MDCK, Preservative Free, Antibiotic Free, Intramuscular 05/04/2021 Influenza, Quadrivalent, Spl it, Preservative Free, Intramuscular 05/19/2020,04/22/2019,05/16/2018,04/25 Influenza, Trivalent, Cell Culture-based MDCK, Preservative Free, Antibiotic Free, Intramuscular 04/06/2024 Influenza, Unspecified 06/24/2023,2021,05/16/2018,04/25,06/19/2012 Pneumococcal Conjugate PCV 13 [...] you have a drink containing alcohol? Never 01/15/2025 Q2: How many drinks containi ng alcohol do you have on a typical day when you are drinking? Patient does not drink Q3: How often do you have si x or more drinks on one occasion? 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 Not on file Not on file Not on leeann e Obstetrics History Last Filed Vital Signs Vital Sign Reading Time Taken Comments Blood Pressure 92/66 01/15/2025 2:54 PM CDT Pulse 110 01/15/2025 2:54 PM CDT Temperature 36 C (96.8 F) 01/15/2025 2:54 PM CDT Respiratory Rate 14 01/15/2025 2:54 PM CDT Oxygen Saturation 97% 01/15/2025 2:54 PM CDT Inhaled Oxygen Concentration - - Weight 100.5 kg (221 lb 9.6 oz) 01/15/2025 2:54 PM CDT Height 165.1 cm (5' 5) 01/15/2025 2:54 PM CDT Body Mass Index 36.88 01/15/2025 2:54 PM CDT Plan of Treatment Health Maintenance Due Date [...] 11/22/2024 11/23/2023, 09/20, 07/11/2018, Additional history exists Influenza Vaccine (#1) 2025 , 06/24/2023, 05/30/2022, Additional history exists DTaP/Tdap/Td Vaccine (3 - Td or Tdap) 04/25/2026 04/25/2016, 04/25/2016 Pneumococcal vaccine <65 (3 of 3 - PCV20 or PCV21) 05/04/2026 05/04/2021, 05/04/2021, 04/22/2019 Procedures Procedure Name Priority Date/Time Associated Diagnosis Comments MRI CERVICAL SPINE WO CONTRAST Schedule Routine, Read Routine (OP Routine) 01/14/2025 7:48 AM CDT NE INJECTION SINGLE/SPORTS INFORMATION DIRECTOR TRIGGER POINT 1/2 MUSCLES Routine 12/17/2024 9:30 AM CDT Myofascial pain syndrome COMPREHENSIVE METABOLIC PANEL Routine 07/11/2018 8:19 AM ASSISTED LIVING DIRECTOR Intestinal malabsorption, unspecified type Bariatric surgery status HEMOGLOBIN A1C Routine 07/11/2018 8:19 AM ASSISTED LIVING DIRECTOR Intestinal malabsorption, unspecified type Bariatric surgery status LIPID PANEL Routine 07/11/2018 8:19 AM ASSISTED LIVING DIRECTOR Intestinal malabsorption, unspecified type Bariatric surgery status from Last 3 Months or Most Recently Relevant to Health Maintenance Results * MRI Cervical Spine WO Contrast (01/14/2025 7:48 AM CDT) Anatomical Region Laterality Modality Spine N/A Magnetic Resonan ce Historical Provider MD [facility] MRI PROCEDURES Final Result * NE INJECTION SINGLE/SPORTS INFORMATION DIRECTOR TRIGGER POINT 1/2 MUSCLES (12/17/2024 9:30 AM CDT) Narrative Valentina Curtis NP - 12/17/2024 9:30 AM CDT Valentina Curtis NP 01/15/2025 8:18 AM Trigger Point Injection Performed by: Valentina [...] marked: Yes Indications: Myalgia Location: L lumbar paraspinal, R lumbar paraspinal and L gluteus denton Local anesthetic: Ethyl chloride spray Ultrasound guidance: No Needle size: 22 G Number of muscles: 1 or 2 Approach: Posterior Medications: 6 mL lidocaine 10 mg/mL (1 %); 120 mg triamcinolone 40 mg/mL Patient tolerance: Patient tolerated the procedure well with no immediate complications Valentina Curtis CUSTOMER SERVICE LEADER IN CLINIC/BEDSIDE ORDERABLE S Final Result * Hemoglobin A1c (07/11/2018 8:19 AM ASSISTED LIVING DIRECTOR) Hgb A1C 5.1 <5.7 % of total Hgb [facility] [place] Comment: For the purpose of screening for the presence of diabetes: <5.7% Consistent with the absence of diabetes 5.7-6.4% Consistent with increased risk for diabetes (prediabetes) > or =6.5% Consistent with diabetes This assay result is consistent with a decreased risk of diabetes. Currently, no consensus exists regarding use of hemoglobin A1c for diagnosis of diabetes in children. According to [place] Diabetes Association (ADA) guidelines, hemoglobin A1c <7.0% represents optimal control in non- diabetic patients. Different metrics may apply to specific patient populations. Standards of Medical Care in Diabetes(ADA). Blood specimen (specimen) 07/11/2018 8:19 AM ASSISTED LIVING DIRECTOR 07/11/2018 8:20 AM ASSISTED LIVING DIRECTOR Narrative [facility] - 07/15/2018 8:57 AM ASSISTED LIVING DIRECTOR FASTING:YES FASTING: YES Resulting Agency Comment Performing Organization Information: Site ID: [id number] Name: [facility] Address: [facility] [place] [address] Director: Servando Cervantes D.O., MPH us Elli Hernandez MD PhD LAB BLOOD ORDERABLES Kiley l Result [facility] [place] * (ABNORMAL) Lipid panel (07/11/2018 8:19 AM ASSISTED LIVING DIRECTOR) Cholesterol 139 <200 mg/dL [facility] [place] HDL 38(L) >50 mg/dL [facility] [place] Triglycerides 204(H) <150 mg/dL [facility] [place] LDL 71 mg/dL (calc) [facility] [place] Comment: Reference range: <100 Desirable range <100 mg/dL for primary prevention; <70 mg/dL for patients with CHD or diabetic patients with > or = 2 CHD risk factors. LDL-C is now calculated using the Deep-Asif calculation, which is a validated novel method providing better accuracy than the Friedewald equation in the estimation of LDL-C. Deep GREER et al. JAMAR. 2013;310(19): 7028-3395 (http://education.HemoSonics.Sproutling/faq/MSK040) Chol/HDL ratio 3.7 <5.0 (calc) [facility] [place] Non-HDL, (LDL+VLDL) 101 <130 mg/dL (calc) [facility] [place] Comment: For patients with diabetes plus 1 major ASCVD risk factor, treating to a non-HDL-C goal of <100 mg/dL (LDL-C of <70 mg/dL) is considered a therapeutic option. Blood specimen (specimen) 07/11/2018 8:19 AM ASSISTED LIVING DIRECTOR 07/11/2018 8:20 AM ASSISTED LIVING DIRECTOR Narrative [facility] - 07/15/2018 8:57 AM ASSISTED LIVING DIRECTOR FASTING:YES FASTING: YES Resulting Agency Comment Performing Organization Information: Site ID: [id number] Name: [facility] Address: [address] [place] [address] Director: Servando Cervantes D.O., MPH us Elli Hernandez MD PhD LAB BLOOD ORDERABLES Kiley garrett Result [facility] [place] * Comprehensive metabolic panel (07/11/2018 8:19 AM ASSISTED LIVING DIRECTOR) Glucose 92 65 - 99 mg/dL [facility] [place] Comment: Fasting reference interval BUN 21 7 - 25 mg/dL [facility] [place] Creatinine 0.79 0.50 - 1.10 mg/dL [facility] [place] eGFR NON-AFR. [place] 88 > OR = 60 mL/min/1. 73m2 [...] [place] Blood specimen (specimen) 07/11/2018 8:19 AM ASSISTED LIVING DIRECTOR 07/11/2018 8:20 AM ASSISTED LIVING DIRECTOR Narrative [facility] - 07/15/2018 8:57 AM ASSISTED LIVING DIRECTOR FASTING:YES FASTING: YES Resulting Agency Comment Performing Organization Information: Site ID: [id number] Name: [facility] Address: [address] [place] [address] Director: Servando Cervantes D.O., MPH us Elli Hernandez MD PhD LAB BLOOD ORDERABLES Kiley garrett Result [facility] [place] from Last 3 Months or Most Recently Relevant to Health Maintenance Insurance [employer] MEDICARE O [employer] MEDICARE O [facility] MEDICARE ADVANTAGE Care Teams Color Developer Relationship Specialty Start Date End Date Keyonna Armstrong PA PCP - General Nurse Practitioner 06/20/18 Gasper Ochoa MD [address] [facility], [address] [address] Consulting Physician Pain Management 08/31/21
--- OUTSIDE RECORDS SUMMARY | 2025-03-17 11:20 | XMS_ITS | Clinical Summary ---
Author Organization [facility] Address [address] [place] [address] Care Team Providers Care Sports Analyst Name Role Phone Keyonna Armstrong Primary Care Provider [phone] Allergies Active Allergy Reactions Criticality Noted Date Comments Trazodone Hallucinations 08/28/2019 Medications Multiple Vitamin (MULTI-VITAMIN) tablet Take 1 tablet by mouth daily. Active LORazepam (ATIVAN) 1 MG tabletIndications :Anxiety Take 1 tablet (1 mg total) by mouth every 8 (eight) hours as needed for Anxiety (regularly takes 3 tabs daily). 60 tablet 3 Active gabapentin (NEURONTIN) 100 MG capsule Take 1 capsule (100 mg total) by mouth 3 (three) times daily. 3 Active vitamin D3 (CHOLECALCIFEROL) 25 mcg tablet Take 1 tablet (25 mcg total) by mouth daily. Active Magnesium 400 MG Cap Take 1 capsule by mouth 2 (two) times a day. Active dimenhyDRINATE (DRAMAMINE) 50 MG Tab tablet Take 1 tablet (50 mg total) by mouth every 4 (four) hours as needed for Nausea. Active diphenhydrAMINE-A PAP (TYLENOL PM) 25-500 MG Tab tablet Take by mouth nightly at bedtime. Active Cranberry-Vitamin C-Probiotic (AZO CRANBERRY) 250-30 MG Tab Active progesterone (PROMETRIUM) 200 MG capsule TAKE 1 CAPSULE BY MOUTH EVERY DAY IN THE EVENING 4 Active methocarbamol (ROBAXIN) 750 MG TabIndications:Pu lled muscle Take 1 tablet (750 mg total) by mouth 3 (three) times daily as needed. 180 tablet 4 Active MOUNJARO 15 MG/0.5ML injection Inject 15 mg into the skin once a week. 5 Active topiramate (TOPAMAX) 25 MG tablet Take 1 tablet (25 mg total) by mouth 2 (two) times daily. 5 Active NOHEMI 0.075 MG/24HR APPLY 1 PATCH TOPICALLY TWICE A WEEK 5 Active zolpidem (AMBIEN) 10 MG tablet Take 1 tablet (10 mg total) by mouth nightly as needed for Sleep. 5 Active albuterol sulfate HFA 108 (90 Base) MCG/ACT inhalerIndication s:Upper respiratory tract infection, unspecified type,Wheezing Inhale 2 puffs into the lungs every 4 (four) hours as needed for Wheezing or Shortness of breath. 18 g 1 5 Active estradiol (VIVELLE-DOT) 0.075 MG/24HR Place 1 patch onto the skin twice a week. Active amLODIPine (NORVASC) 5 MG tabletIndications :Primary hypertension Take 1 tablet (5 mg total) by mouth daily. 90 tablet 3 5 Active buPROPion SR (ZYBAN) 150 MG 12 hr tabletIndications :Recurrent major depressive disorder, in partial remission Take 1 tablet (150 mg total) by mouth 2 (two) times daily. 180 tablet 3 5 Active hydroCHLOROthiazi de (HYDRODIURIL) 25 MG tabletIndications :Essential hypertension Take 1 tablet (25 mg total) by mouth daily. 90 tablet 3 5 Active hydrOXYzine (ATARAX) 25 MG tabletIndications :Gastroesophageal reflux disease without esophagitis Take 1 tablet (25 mg total) by mouth 2 (two) times daily as needed. 60 tablet 11 5 Active lisinopril (PRINIVIL) 40 MG tabletIndications :Essential hypertension Take 1 tablet (40 mg total) by mouth daily. 90 tablet 3 5 Active metFORMIN (GLUCOPHAGE) 500 MG tabletIndications :Prediabetes TAKE 1 TABLET BY MOUTH EVERY MORNING AND 2 TABLETS AT BEDTIME 270 tablet 3 5 Active metoprolol tartrate (LOPRESSOR) 100 MG tabletIndications :Primary hypertension,Sinu s tachycardia Take 1 tablet (100 mg total) by mouth 2 (two) times daily. 180 tablet 3 5 Active mirtazapine (REMERON) 15 MG tabletIndications :Primary insomnia Take 1 tablet (15 mg total) by mouth nightly at bedtime. 90 tablet 3 5 Active pantoprazole EC (PROTONIX) 20 MG tabletIndications :Gastroesophageal reflux disease without esophagitis Take 1 tablet (20 mg total) by mouth daily. 90 tablet 3 5 Active venlafaxine XR (EFFEXOR-XR) 75 MG 24 hr capsuleIndication s:Depression, unspecified depression type TAKE 1 CAPSULE BY MOUTH ONCE DAILY IN THE MORNING AND 2 ONCE DAILY IN THE EVENING 270 capsule 3 5 Active ibuprofen (MOTRIN) 800 MG tabletIndications :Right ovarian cyst Take 1 tablet by mouth three times daily as needed 60 tablet 2 5 Active PROCTO-MED HC 2.5 % rectal creamIndications: Hemorrhoids, unspecified hemorrhoid type APPLY CREAM RECTALLY TWICE DAILY 28 g 5 Active Active Problems Problem Noted Date [...] Date Diagnosed Date Resolved Date Abnormal platelets ([facility]/H[facility]) 03/04/2020 12/20/2021 BMI 50.0-59.9, adult 06/11/2018 02/ 019 Menorrhagia 04/02/2018 07/31/2024 Class 3 severe obesity with serious comorbidity in adult 09/23/2013 12/20/2021 Encounters Date Type Department Care Team Description 01/13/2025 Scan HEALTH INFO SRVCS Scanned, Doc [facility] MRI (SCAN) 12/17/2024 Scan HEALTH INFO SRVCS Scanned, Doc Med Group from Last 3 Months Immunizations Immunization Administration Dates Next Due Dtap (Generic) 04/25/2016 FLUCELVAX (ccIIV3, TRIVALENT, 0.5mL) 04/06/2024 Fluzone 6 Months+ Quad (0.5 mL Prefilled Syringe) 05/19/2020,04/22/2019 Influenza (Generic) 06/19/2012 Influenza Adult (Generic) 06/24/2023,02/2022,05/04/2021,2019,05/16/2018,04/25/2016 Pneumococcal (Capvaxive - PCV 21) 11/25/2024 Pneumococcal (Pneumovax 23) 05/04/2021 Pneumococcal (Prevnar 13) 04/22/2019 Shingrix 11/25/2024,06/24/2023 Tdap (Generic) 04/25/2016 Family History Medical History Relation Comments Alcohol Abuse Brother 1 Alcohol Depression Brother 1 Liver Disease Brother 1 Alcohol Abuse Brother 2 Alcohol Early Brother 2 Mental Health Brother 2 Early Brother 3 Diabetes Father None Father Stroke Maternal Grandmother Alcohol Abuse Mother Most of family Arthritis Mother Depression Mother Hypertension Mother Liver Disease Mother Depression Sister Thyroid Sister Relation Status Comments Brother 1 Brother 2 Brother 3 Alive Father Maternal Grandmother Mother Sister Social History [...] Sex Assigned at Female 08/08/2024 10:41 AM MANUGRAPHER Legal Sex Female 5:47 PM CDT Gender Identity Female 07/17/2022 10:27 AM MANUGRAPHER Sexual Orientation Straight 07/17/2022 10 :27 AM MANUGRAPHER Last Filed Vital Signs Vital Sign Reading Time Taken Comments Blood Pressure 116/78 11/18/2024 9:11 AM CDT Pulse 112 11/18/2024 9:48 AM CDT Temperature 36.4 C (97.5 F) 11/18/2024 9:11 AM CDT Respiratory Rate 16 11/18/2024 9:11 AM CDT Oxygen Saturation 97% 11/18/2024 9:11 AM CDT Inhaled Oxygen Concentration - - Weight 105.5 kg (232 lb 8 oz) 11/18/2024 9:11 AM CDT Height 162.6 cm (5' 4) 11/18/2024 9:11 AM CDT Body Mass Index 39.91 11/18/2024 9:11 AM CDT Plan of Treatment Health Maintenance Due Date Last Done Comments Cervical Cancer Screening Pap Smear (Age 30 to 64) Every 3 Years 1968 Annual Physical 1971 Cervical Cancer Screening Pap with HPV Testing (Age 30 to 64) Every 5 Years 1998 Cervical Cancer Screening with HPV 08/08/2025 Postponed from 1998 (Going to Outside Clinic) Hepatitis B Vaccines (1 of 3 - 19+ 3-dose series) 10/21/2025 Postponed from 1987 (Patient/Guardian Refusal) DTaP, Tdap and Td Vaccines (3 - Td or Tdap) 04/25/2026 04/25/2016, 04/25/2016 Mammogram Screening 10/29/2026 10/29/2024, Colorectal Cancer Screening Colonoscopy (10 Years) 01/11/2030 01/12/2020, 01/12/2020 Hepatitis C 10/21/2054 Postponed from 1986 (Patient Refused) PHQ-2 (Physician [place]) Completed 08/08/2024 COVID-19 Vaccine Completed 11/25/2024, , 05/30/2022, Additional history exists Pneumococcal Vaccine: 50+ Years Completed 11/25/2024, 05/04/2021, 04/22/2019 Zoster Vaccines Completed 11/25/2024, 06/24/2023 Meningococcal B Vaccine Aged Out No l onger eligible based on patient's age to complete this topic Meningococcal Vaccine Aged Out No jordi orestes eligible based on patient's age to complete this topic RSV Immunizations Under 20 Months Aged Out No longer eligible based on patient's age to complete this topic Procedures Procedure Name Priority Date/Time Associated Diagnosis Comments MRI GENERIC 01/13/2025 MRI GENERIC 01/13/2025 MAMMOGRAM GENERIC (SCAN ORDER) 10/29/2024 COLONOSCOPY GENERIC (SCAN ORDER) Routine 01/12/2020 from Last 3 Months or Most Recently Relevant to Health Maintenance Results * MRI GENERIC (01/13/2025) Only the most recent of2 resultswithin the time period is included. Anatomical Region Laterality Modality Other 01/13/2025 us [facility] Scanned SCANNING Final Resu lt * MAMMOGRAM GENERIC (SCAN ORDER) (10/29/2024) Anatomical Region Laterality Modality Other 10/29/2024 us Doc [facility] Scanned SCANNING Final Resu lt * COLONOSCOPY (01/12/2020) us Documents Scanned SCANNING Final Result [facility] from Last 3 Months or Most Recently Relevant to Health Maintenance Insurance [facility] Care Teams Sports Analyst Relationship Specialty Start Date End Date Keyonna Armstrong APNP [address] [place] [id number] PCP - General NURSE PRACTITIONER 05/06/18
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
[2025-03-17] MEDS: HYDROcodone/acetaminophen (*CRX) 5-325 MG TABLET 2 TAB PO (13:09)
--- OUTSIDE RECORDS SUMMARY | 2025-03-17 13:13 | XMS_ITS | Clinical Summary ---
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 Gender Identity Not on file Sexual Orientation Not on file Last Filed Vital Signs Vital Sign Reading Time Taken Comments Blood Pressure 104/74 08/26/2019 2:20 PM FORM SETTER/DRIVER Pulse 105 08/26/2019 2:20 PM FORM SETTER/DRIVER Temperature 36.6 C (97.9 F) 08/26/2019 2:20 PM FORM SETTER/DRIVER Respiratory Rate - - Oxygen Saturation 98% 08/26/2019 2:20 PM FORM SETTER/DRIVER Inhaled Oxygen Concentration - - Weight 135.3 kg (298 lb 3.2 oz) 08/26/2019 2:20 PM FORM SETTER/DRIVER Height 165.1 cm (5' 5) 08/26/2019 2:20 PM FORM SETTER/DRIVER Body Mass Index 49.62 08/26/2019 2:20 PM FORM SETTER/DRIVER Plan of Treatment Health Maintenance Due Date [...] 01/12/2020 Colorectal Cancer Screening 01/11/2030 Care Teams Motorcycle Engine Assembler Relationship Specialty Start Date End Date Keyonna Armstrong NP [address] [place] [phone] PCP - General NURSE PRACTITIONER 08/26/19
--- OUTSIDE RECORDS SUMMARY | 2025-03-17 13:13 | XMS_ITS | Clinical Summary ---
Author Organization [facility] Medical [facility] [address] [place] [phone] Care Team Providers Care Application Release Manager Name Role Phone Keyonna Armstrong Primary [...] (06/26/2018): Added automatically from request for surgery [id number] Calculus of gallbladder with acute cholecystitis without obstruction 06/20/20182018 Body mass index (BMI) of 50-59.9 in adult 10/10/2017 10/15/2024 Class 3 severe obesity due t o excess calories without serious comorbidity with body mass index (BMI) of 45.0 to 49.9 in adult 09/23/2013 Encounters Date Type Department Care Team Description 03/02/2025 Telephone [facility] [address] [place] [phone] Katherine Mueller MA 02/25/2025 Telephone [facility] at [address] [phone] Mark Wheat MD 01/15/2025 2:45 PM CDT Office Visit [facility] at [address] [phone] Mark Wheat MD Class 2 obesity due to excess calories without serious comorbidity with body mass index (BMI) of 38.0 to 38.9 in adult (Primary Dx); Controlled type 2 diabetes mellitus without complication, without long-term current use of insulin ([facility]) 01/14/2025 Telephone [facility] [address] [place] [phone] Valentina Curtis NP 01/14/2025 Orders Only [facility] [address] [place] [phone] Gloria Bautista MD 12/19/2024 Telephone [facility] [address] [place] [phone] Katherine Mueller MA 12/17/2024 9:30 AM CDT Office Visit [facility] [address] [place] [phone] Valentina Curtis NP Myofascial pain syndrome (Primary [...] on file Legal Sex Female 6:41 PM INK JET OPERATOR Gender Identity Not on file Sexual Orientation Not on file 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 Not on file Not on file [...] Routine (OP Routine) 01/14/2025 7:48 AM CDT CA INJECTION SINGLE/INSURANCE CHECKER TRIGGER POINT 1/2 MUSCLES Routine 12/17/2024 9:30 AM CDT Myofascial pain syndrome COMPREHENSIVE METABOLIC PANEL Routine 07/11/2018 8:19 AM INK JET OPERATOR Intestinal malabsorption, unspecified type Bariatric surgery status HEMOGLOBIN A1C Routine 07/11/2018 8:19 AM INK JET OPERATOR Intestinal malabsorption, unspecified type Bariatric surgery status LIPID PANEL Routine 07/11/2018 8:19 AM INK JET OPERATOR Intestinal malabsorption, unspecified type Bariatric surgery status from Last 3 Months or Most Recently Relevant to Health Maintenance Results * MRI Cervical Spine WO Contrast (01/14/2025 7:48 AM CDT) Anatomical Region Laterality Modality Spine N/A Magnetic Resonan ce Historical Provider MD [facility] MRI PROCEDURES Final Result * CA INJECTION SINGLE/INSURANCE CHECKER TRIGGER POINT 1/2 MUSCLES (12/17/2024 9:30 AM [...] well with no immediate complications Valentina Curtis GRIP BOSS IN CLINIC/BEDSIDE ORDERABLE S Final Result * Hemoglobin A1c (07/11/2018 8:19 AM INK JET OPERATOR) Hgb A1C 5.1 <5.7 % of total [...] diagnosis of diabetes in children. According to [place] Diabetes Association (ADA) guidelines, hemoglobin A1c <7.0% represents optimal control in non- diabetic patients. Different metrics may apply to specific patient populations. Standards of Medical Care in Diabetes(ADA). Blood specimen (specimen) 07/11/2018 8:19 AM INK JET OPERATOR 07/11/2018 8:20 AM INK JET OPERATOR Narrative [facility] - 07/15/2018 8:57 AM INK JET OPERATOR FASTING:YES FASTING: YES Resulting Agency Comment Performing Organization Information: Site ID: [id number] Name: [facility] Address: [facility] [place] [address] Director: Servando Cervantes D.O., MPH us Elli Hernandez MD PhD LAB BLOOD ORDERABLES Kiley l Result [facility] [place] * (ABNORMAL) Lipid panel (07/11/2018 8:19 AM INK JET OPERATOR) Cholesterol 139 <200 mg/dL [facility] [place] HDL 38(L) >50 mg/dL [facility] [place] Triglycerides 204(H) <150 mg/dL [facility] [place] LDL 71 mg/dL (calc) [facility] [place] Comment: Reference range: <100 Desirable range <100 mg/dL for primary prevention; <70 mg/dL for patients with CHD or diabetic patients with > or = 2 CHD risk factors. LDL-C is now calculated using the Deep-Asif calculation, which is a validated novel method providing better accuracy than the Friedewald equation in the estimation of LDL-C. Deep GREER et al. JAMAR. 2013;310(19): 8030-4745 (http://education.Del Taco.Knodium/faq/MGQ420) Chol/HDL ratio 3.7 <5.0 (calc) [facility] [place] Non-HDL, (LDL+VLDL) 101 <130 mg/dL (calc) [facility] [place] Comment: For patients with diabetes plus 1 major ASCVD risk factor, treating to a non-HDL-C goal of <100 mg/dL (LDL-C of <70 mg/dL) is considered a therapeutic option. Blood specimen (specimen) 07/11/2018 8:19 AM INK JET OPERATOR 07/11/2018 8:20 AM INK JET OPERATOR Narrative [facility] - 07/15/2018 8:57 AM INK JET OPERATOR FASTING:YES FASTING: YES Resulting Agency Comment Performing Organization Information: Site ID: [id number] Name: [facility] Address: [address] [place] [address] [address] Director: Servando Cervantes D.O., MPH us Elli Hernandez MD PhD LAB BLOOD ORDERABLES Kiley garrett Result [facility] [place] * Comprehensive metabolic panel (07/11/2018 8:19 AM INK JET OPERATOR) Glucose 92 65 - 99 mg/dL [facility] [place] Comment: Fasting reference interval [...] [place] Blood specimen (specimen) 07/11/2018 8:19 AM INK JET OPERATOR 07/11/2018 8:20 AM INK JET OPERATOR Narrative [facility] - 07/15/2018 8:57 AM INK JET OPERATOR FASTING:YES FASTING: YES Resulting Agency Comment Performing Organization Information: Site ID: [id number] Name: [facility] Address: [address] [place] [address] Director: Servando Cervantes D.O., MPH us Elli Hernandez MD PhD LAB BLOOD ORDERABLES Kiley garrett Result [facility] [place] from Last 3 Months or Most Recently Relevant to Health Maintenance Insurance [email or web address] MEDICARE O [employer] MEDICARE O [facility] MEDICARE ADVANTAGE Care Teams Application Release Manager Relationship Specialty Start Date End Date Keyonna Armstrong PA PCP - General Nurse Practitioner 06/20/18 Gasper Ochoa MD [address] [facility], [address] [address] Consulting Physician Pain Management 08/31/21
--- OUTSIDE RECORDS SUMMARY | 2025-03-17 13:13 | XMS_ITS | Encounter Summary ---
Author Organization [facility] Address [address] [place] [address] Phone Care Team Providers Care Supervisory Investigative Specialist Name Role Phone Keyonna Armstrong APRN, BETY Primary Care Provider + Encounter Details Date Type Department Care Team (Late Contact Info) Description 02/28/2024 Telephone [facility] [address] [phone] Woody Horvath MD [address] [address] Social History Tobacco Use Types Packs/Day Years Used Date Smoking Tobacco: Never Smokeless Tobacco: Never Alcohol Use Standard Drinks/Week Comments Not Currently 0 (1 standard drink = 0.6 oz pur e alcohol) Comments Unknown Sex and Gender Information Value Date Recorded Sex Assigned at Not on file Legal Sex Female 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
--- OUTSIDE RECORDS SUMMARY | 2025-03-17 13:13 | XMS_ITS | Clinical Summary ---
Author Organization Address [address] [place] [address] Care Team Providers Care Theater Projectionist Name Role Phone Keyonna Armstrong APRN, BETY [...] on file Legal Sex Female 1:39 PM LIFT OPERATOR Gender Identity Not on file Sexual [...] CDT Office Visit [facility] [address] [phone] Woody Horvath MD [address] [place] [address] [place] [phone] Health Maintenance Due Date Last Done Comments [...] to complete this topic Insurance MEDICARE C [facility] Care Teams Theater Projectionist Relationship Specialty Start Date End Date Keyonna Armstrong, GENEVIEVE, AUDIO OPERATOR [address] [place] [address] PCP - General Family Medicine 10/19/22
[2025-03-17 13:44] LABS: Hematocrit 38.8 % (37.0-47.0); Hemoglobin 12.5 g/dL (12.0-15.0); Immature Granulocyte Percent A 1.0 % (0-0.5); Lymphocytes Absolute Auto 4.74 K/mm3 (0.9-3.2); Mean Corpuscular HGB Conc 32.2 g/dl (32-36); Mean Corpuscular Hemoglobin 32.5 pg (26-34); Mean Corpuscular Volume 100.8 fl (80-100); Nucleated Red Blood Cells Absolute Auto 0.000 K/mm3 (0.0-0.012); Nucleated Red Blood Cells Perc 0.0 % (0.0-0.2); Platelet Count Result 382 k/mm3 (150-375); Red Blood Count 3.85 M/mm3 (4.2-5.4); White Blood Count 13.6 K/mm3 (4.5-10.0)
[2025-03-17] MEDS: ACETAMINOPHEN 500 MG TABLET 1000 MG PO (13:56)
[2025-03-17] MEDS: KETOROLAC 15 MG/ML VIAL (*BKC) IV PUSH (13:58)
[2025-03-17] MEDS: dexAMETHasone SOD PHOS INJ 10 MG/ML 1 ML VIAL IM (14:00)
[2025-03-17] MEDS: LIDOCAINE 5% PATCH 1 PATCH TRANSDERM (14:02)
[2025-03-17 15:32] LABS: Add Urine Microscopic? YES; Appearance Urine Cloudy (Clear); Glucose Urine UA Negative (Negative); Leukocyte Esterase Ur 1+ LEU/UL (Negative); Nitrate Urine Negative (Negative); Non Pathogenic Casts 0-2; Specific Grav Ur 1.012 (1.001-1.035)
[2025-03-17 16:57] LABS: Alanine Aminotransferase 21 U/L (6-35); Albumin Level 3.7 g/dL (3.5-5.1); Alkaline Phosphatase 102 U/L (38-126); Anion Gap 11 mmol/L (4-12); Aspartate Amino Transferase 26 U/L (14-36); Bilirubin,Total 0.3 mg/dL (0.2-1.3); Blood Urea Nitrogen 24 mg/dL (7-17); Calcium 9.4 mg/dL (8.4-10.2); Carbon Dioxide 21 mmol/L (22-30); Chloride 104 mmol/L (98-107); Creatine Kinase 60 U/L (30-135); Estimated CRCL calculation 69 ml/min; Estimated Glomerular Filt Rate > 60; Glucose 91 mg/dL (65-110); Potassium 3.5 mmol/L (3.4-5.0); Sodium 136 mmol/L (137-145); Total Protein 6.7 g/dL (6.3-8.2)
[2025-03-17] MEDS: CEPHALEXIN 500 MG CAPSULE PO (17:24)
--- NOTE | 2025-03-17 17:45 | PC.NURSE ---
Pt states she had an increase in pain when walking with the doctor. States it is [address] Moreno aware. No orders received.
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
--- NOTE | 2025-03-17 18:32 | PC.NURSE ---
Pt talking on phone while sitting crosslegged on the bed. No distress noted
--- NOTE | 2025-03-17 19:26 | PC.NURSE ---
Pt and family decided they were done waiting for a room and to talk to the doctor. They decided to sign out AMA
== END 2025-03-17 19:08 | disposition left against medical advice (07) ==
LOC: ANHED 14:39 → ANH3MEDSUR 19:17
PROVIDERS: Emergency Provider Emergency Medicine; PCP Registered Nurse
DX: M79.605 Pain in left leg (principal); R26.2 Difficulty in walking, not elsewhere classified; E11.9 Type 2 diabetes mellitus without complications; G89.29 Other chronic pain; Z87.442 Personal history of urinary calculi; K21.9 Gastro-esophageal reflux disease without esophagitis; I10 Essential (primary) hypertension; F32.A Depression, unspecified; F41.9 Anxiety disorder, unspecified; Z79.84 Long term (current) use of oral hypoglycemic drugs; Z98.84 Bariatric surgery status
CPT/HCPCS: 13100; 36415; 72131; 73502; 80053; 81001; 82550; 85025; 87086; 93971; 96372; 96374; 96375; 99284; 99285; A9270; G0378; J1100; J1885